=== PATIENT | male | born 1985 | race Caucasian/White ===

== ENCOUNTER 2018-12-24 09:39 | Observation (INO) ==
[2018-12-24] MEDS ORDERED: ONDANSETRON 4 MG/2 ML VIAL IV ONE (09:48)
[2018-12-24] MEDS ORDERED: 0.9 % SODIUM CHLORIDE 1,000 ML IV ONE ×5 (09:53→11:47)
[2018-12-24] MEDS ORDERED: METOCLOPRAMIDE 10 MG/2 ML VIAL IV ONE (09:56)
--- NOTE | 2018-12-24 10:03 | Emergency Department Note ---
Nausea/Vomiting/Diarrhea HPI - General Chief complaint: Weakness Stated complaint: Weakness, N/V Time Seen by Provider: 12/24/18 09:57 Source: patient, EMS Mode of arrival: EMS Limitations: no limitations - History of Present Illness HPI Narrative: 32-year-old male patient presents emergent department via ambulance with chief complaint of profuse nausea, vomiting, and hiccups. Patient is a known type I diabetic currently on an insulin pump. He admits to 2 days of inability to keep anything down including foods or fluids. He admits to dizziness with changes of position. He is somewhat of a poor historian but his mother does tell me that this has been an ongoing issue with him. He does suffer from gastroparesis associated with his diabetes and this often causes him to be nauseated and vomiting. Mother also mentions he was evaluated by a tobacco packing machine operator several days ago but she is unsure why. Patient's significant other showed up in the emergency department and filled in some details. Patient is rather "brittle" type I diabetic patient who currently uses insulin pump on. His sugars been running high at home and the 290s and so she's been having to give him boluses through his pump. He currently has a primary care provider but no bartacker as of yet. She is scheduled to see endocrinology in 2 weeks. They didn't send him to cardiology for evaluation because his blood pressures have been steadily climbing. She tells me they did an echocardiogram that showed some mitral valve regurgitation is also a aortic enlargement. Obviously, I do not have the report to review. She presents with a list his medications indicating that he is taking clonidine transdermal and conjunction with lisinopril daily. He is also on gabapentin for neuropathy. He has a history of chronic skin ulcers but this is resolved. When questioned directly, he denies any systemic fever, sweats, chills, cough, congestion, headache, shortness of breath, chest pain, palpitations, diarrhea, or focal weakness. - Related Data Home Medications Medication Instructions Recorded Confirmed insulin syringe U-100 with needle See Dose Instructions .ROUTE 03/27/15 05/24/17 1/2 mL 31 gauge x 15/64" .MEDSUPPLY Previous Rx's Medication Instructions Recorded glucagon (human recombinant) 1 mg 1 mg IM ONCE PRN #7 each 10/02/15 injection kit erythromycin 250 mg tablet 250 mg PO TID #90 tab 01/01/16 Diabetic Shoes #2 each 01/07/16 blood sugar diagnostic strips See Dose Instructions .ROUTE 06/04/16 .MEDSUPPLY #100 each MDD 4 blood-glucose meter See Dose Instructions .ROUTE 06/08/16 .MEDSUPPLY #1 each lisinopril 2.5 mg tablet 2.5 mg PO QDAY 90 Days #90 tab 12/27/16 metoclopramide 5 mg tablet 5 mg PO QID #30 tab 01/25/17 insulin lispro (U- 100) 100 See Rx Instructions SUB-Q QDAY #10 04/20/17 unit/mL subcutaneous solution ml sumatriptan 50 mg tablet 50 mg PO ONCE #30 tab 04/20/17 lorazepam 0.5 mg tablet 0.5 mg PO ONCE PRN #10 tab 05/24/17 gabapentin 300 mg capsule 300 mg PO BID #180 cap 06/13/17 ondansetron 4 mg disintegrating 4 mg PO Q6H #20 tab 08/12/17 tablet Allergies Allergy/AdvReac Type Severity Reaction Status Date / Time prochlorperazine Allergy Unknown Other Verified 12/24/18 09:48 [From Compazine] Review of Systems All systems ED: reviewed and negative except as stated. Past Medical History - Past Medical History Medical history: Reports: other (type 1 diabetes,) - Social History smoking status: Former smoker Physical Exam Limitations: no limitations General appearance: lethargic, sleepy, other (patient is lying supine on the ER gurney with his eyes closed. She does follow my commands, answering questions appropriately, he is not slurring his speech,.) Head: atraumatic, normocephalic Eye: Present: normal appearance, PERRL, EOMI. Absent: scleral icterus, conjunctival injection ENT: normal oropharynx, mucous membranes moist Neck: Present: trachea midline. Absent: lymphadenopathy, thyromegaly Respiratory: Present: normal lung sounds bilaterally. Absent: respiratory distress, wheezes, stridor, accessory muscle use, prolonged expiratory phase Cardiovascular: Present: regular rate, normal rhythm. Absent: systolic murmur, diastolic murmur Abdominal: Present: soft, diminished bowel sounds, other (insulin pump needle to the left lower quadrant). Absent: distention, tenderness, guarding, rebound, organomegaly Abdominal tenderness: Present: diffuse (mild tenderness throughout exam.) Extremities: Present: normal inspection, full ROM. Absent: pedal edema, pretibial edema, calf tenderness Neurological: Present: alert, oriented X3, CN II-XII intact, reflexes normal. Absent: motor sensory deficit Psychiatric: Present: depressed, other Skin: Present: warm, dry, normal color. Absent: diaphoretic, cyanosis, pallor Course Course Narrative: Patient was brought in temperature department history and physical exam was performed. IV was established and laboratory studies were drawn. Bedside fingerstick glucose was 225. Normal saline at 1000 ml bolus was provided. The patient actively hiccuping and dry heaving during exam. EKG was performed showing sinus tachycardia without ectopy or ST segment changes. He did have a prolonged QT interval. With this in mind, we avoided giving him Zofran or Phenergan as anti-emetics. Instead we gave him 10 mg of Reglan slow IV push. Lab called down the patient's potassium showed hypokalemia at 2.6. Patient was provided with 20 mEq potassium is IV infusion with normal saline. A review of his initial blood work showed a elevated white blood cell count 16.9 with a left shift. Lactic acid was elevated 2.9. POC chemistry panel showing sodium 127, potassium 2.6, chloride 67, total CO2 greater than 15, BUN 31 and creatinine is 3.0. A blood gas that showed pH 7.54, PCO2 61, PO2 142, bicarbonate 52.2. Repeat fingerstick glucose 197. Due the patient's elevated white blood cell count and lactic acid additional blood cultures, portable chest x-ray, and urinalysis were obtained. Patient was given 1 g of Rocephin with 3.375 g of Zosyn IV. Review of the portal chest x-ray did not show any acute pulmonary infiltrates. Due to the patient's medical complexity, and developing acidosis, undetermined infection I spoke to the hospitalist about admitting the patient. At this time the hospitalist has agreed to admit the patient to this facility for ongoing care. All other treatment modalities be carried out by the hospitalist. Vital Signs Temperature 97.3 F 12/24/18 09:41 Pulse Rate 110 H 12/24/18 09:41 Respiratory Rate 24 H 12/24/18 09:41 Blood Pressure 121/85 12/24/18 09:41 Pulse Oximetry (%) 100 12/24/18 09:41 Temperature 97.3 F 12/24/18 09:41 Pulse Rate 87 12/24/18 11:30 Respiratory Rate 17 12/24/18 11:30 Blood Pressure 124/83 12/24/18 11:30 Pulse Oximetry (%) 100 12/24/18 11:30 Nausea/Vomiting/Diarrhea - Lab Data Lab results reviewed: Yes I reviewed the patient's lab results. Result diagrams: 12/24/18 10:01 12/24/18 10:01 Lab Results 12/24/18 12/24/18 12/24/18 Range/Units 10:01 10: 10:01 WBC 16.9 H (4.5-11.0) K/mcL RBC 4.91 (4.50-5.90) M/mcL Hgb 14.9 (13.5-16.5) g/dL Hct 44.6 (41.0-55.0) % POC Hct 46.0 (41.0-55.0) % MCV 90.8 (80.0-100.0) fL MCH 30.3 (26.0-34.0) pg MCHC 33.3 (31.0-36.0) g/dL RDW 12.8 (11.5-14.5) % Plt Count 371 (140-440) K/mcL MPV 10.5 H (7.4-10.4) fL Gran % 82.7 H (38.0-78.0) % Lymph % (Auto) 10.9 L (15.5-49.0) % White % (Auto) 6.0 (1.0-12.0) % Eos % (Auto) 0.1 (0.0-7.0) % Baso % (Auto) 0.3 (0.0-2.0) % Gran # 14.0 H (1.8-8.0) K/mcL Lymph # (Auto) 1.8 (1.5-4.8) K/mcL White # (Auto) 1.0 H (0.1-0.9) K/mcL Eos # (Auto) 0 (0.0-0.7) K/mcL Baso # (Auto) 0 (0.0-0.3) K/mcL VBG Lactic Acid (0.5-2.0) mmol/L POC Sodium 127 L (133-145) mmol/L Sodium 132 L (133-145) mmol/L POC Potassium 2.6 L* (3.3-5.1) mmol/L Potassium 2.8 L* (3.3-5.1) mmol/L POC Chloride 67 L (96-108) mmol/L Chloride 68 L (96-108) mmol/L Carbon Dioxide 40 H (22-30) mmol/L POC Total CO2 > 50 H* (22-30) mmol/L Anion Gap 24.0 H (8-16) POC BUN 31 H (6-20) mg/dl BUN 32 H (6-20) mg/dl Creatinine 2.8 H (0.7-1.2) mg/dl POC Creatinine 3.0 H (0.7-1.2) mg/dl GFR Calculation 29 Glucose 232 H (70-105) mg/dL POC Glucose 236 H (70-105) mg/dL Calcium 9.5 (8.6-10.4) mg/dl POC WB Ioniz Calcium 0.87 L (1.16-1.32) mmol/L Total Bilirubin 0.4 (0.0-1.0) mg/dL AST 29 (0-37) U/l ALT 23 (0-40) U/l Alkaline Phosphatase 156 H (39-117) U/L Total Protein 8.2 (5.9-8.4) gm/dL Albumin 4.3 (3.2-5.2) gm/dL Globulin 3.9 H (2.2-3.7) gm/dL Albumin/Globulin Ratio 1.1 (1.0-2.3) Beta-Hydroxybutyrate 3.73 H (< 0.27) mmol/L 12/24/18 Range/Units 10:06 WBC (4.5-11.0) K/mcL RBC (4.50-5.90) M/mcL Hgb (13.5-16.5) g/dL Hct (41.0-55.0) % POC Hct (41.0-55.0) % MCV (80.0-100.0) fL MCH (26.0-34.0) pg MCHC (31.0-36.0) g/dL RDW (11.5-14.5) % Plt Count (140-440) K/mcL MPV (7.4-10.4) fL Gran % (38.0-78.0) % Lymph % (Auto) (15.5-49.0) % White % (Auto) (1.0-12.0) % Eos % (Auto) (0.0-7.0) % Baso % (Auto) (0.0-2.0) % Gran # (1.8-8.0) K/mcL Lymph # (Auto) (1.5-4.8) K/mcL White # (Auto) (0.1-0.9) K/mcL Eos # (Auto) (0.0-0.7) K/mcL Baso # (Auto) (0.0-0.3) K/mcL VBG Lactic Acid 2.9 H (0.5-2.0) mmol/L POC Sodium (133-145) mmol/L Sodium (133-145) mmol/L POC Potassium (3.3-5.1) mmol/L Potassium (3.3-5.1) mmol/L POC Chloride (96-108) mmol/L Chloride (96-108) mmol/L Carbon Dioxide (22-30) mmol/L POC Total CO2 (22-30) mmol/L Anion Gap (8-16) POC BUN (6-20) mg/dl BUN (6-20) mg/dl Creatinine (0.7-1.2) mg/dl POC Creatinine (0.7-1.2) mg/dl GFR Calculation Glucose (70-105) mg/dL POC Glucose (70-105) mg/dL Calcium (8.6-10.4) mg/dl POC WB Ioniz Calcium (1.16-1.32) mmol/L Total Bilirubin (0.0-1.0) mg/dL AST (0-37) U/l ALT (0-40) U/l Alkaline Phosphatase (39-117) U/L Total Protein (5.9-8.4) gm/dL Albumin (3.2-5.2) gm/dL Globulin (2.2-3.7) gm/dL Albumin/Globulin Ratio (1.0-2.3) Beta-Hydroxybutyrate (< 0.27) mmol/L - Radiology Data Radiology results reviewed: Yes I reviewed the patient's radiology results. A portable chest x-ray showing no acute pulmonary infiltrates. - EKG Data EKG results narrative: Twelve-lead EKG obtained showing a sinus tachycardia rate 100 bpm. No ectopy. No ST segment changes. QTc 528. 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 All other treatment modalities will be ordered and carried out through the hospitalist. Referrals: Alexia Crouch ARNP [Primary Care Provider] - Time of Disposition: 11:55
[2018-12-24] MEDS ORDERED: POTASSIUM CHLORIDE 20 MEQ in DEXTROSE 5% IN WATER 250 ML IV ONE (10:13)
[2018-12-24 10:16] LABS: POC Blood Urea Nitrogen 31 mg/dl (6-20); POC CO2 > 50 mmol/L (22-30); POC Calcium, Ionized 0.87 mmol/L (1.16-1.32); POC Chloride 67 mmol/L (96-108); POC Glucose, Random 236 mg/dL (70-105); POC Potassium 2.6 mmol/L (3.3-5.1); POC Sodium 127 mmol/L (133-145)
[2018-12-24 10:48] LABS: Basophils # (Auto) 0 K/mcL (0.0-0.3); Basophils % (Auto) 0.3 % (0.0-2.0); Eosinophils # (Auto) 0 K/mcL (0.0-0.7); Eosinophils % (Auto) 0.1 % (0.0-7.0); Granulocytes % (Auto) 82.7 % (38.0-78.0); Hematocrit 44.6 % (41.0-55.0); Hemoglobin 14.9 g/dL (13.5-16.5); Lymphocytes # (Auto) 1.8 K/mcL (1.5-4.8); Lymphocytes % (Auto) 10.9 % (15.5-49.0); Mean Cell Volume 90.8 fL (80.0-100.0); Mean Corpuscular HGB Conc 33.3 g/dL (31.0-36.0); Mean Platelet Volume 10.5 fL (7.4-10.4); Platelet Count 371 K/mcL (140-440); RBC 4.91 M/mcL (4.50-5.90); Red Cell Distribution Width 12.8 % (11.5-14.5); WBC 16.9 K/mcL (4.5-11.0)
[2018-12-24] MEDS ORDERED: PIPERACILLIN SODIUM/TAZOBACTAM 3.375 GM in DEXTROSE 5% IN WATER 50 ML IV ONE (11:10)
[2018-12-24] MEDS ORDERED: cefTRIAXone 1 GM VIAL IV ONE (11:11)
[2018-12-24 11:25] LABS: ALT/SGPT 23 U/l (0-40); AST/SGOT 29 U/l (0-37); Albumin 4.3 gm/dL (3.2-5.2); Albumin/Globulin Ratio 1.1 (1.0-2.3); Alkaline Phosphatase 156 U/L (39-117); Bilirubin,Total 0.4 mg/dL (0.0-1.0); Blood Urea Nitrogen 32 mg/dl (6-20); Calcium 9.5 mg/dl (8.6-10.4); Carbon Dioxide 40 mmol/L (22-30); Chloride 68 mmol/L (96-108); Globulin 3.9 gm/dL (2.2-3.7); Glomerular Filtration Rate 29; Glucose 232 mg/dL (70-105); Potassium 2.8 mmol/L (3.3-5.1); Sodium 132 mmol/L (133-145)
[2018-12-24] MEDS ORDERED: INSULIN REGULAR, HUMAN 50 UNIT in 0.9 % SODIUM CHLORIDE 99.5 ML IV SCH (12:22)
[2018-12-24] MEDS ORDERED: METOCLOPRAMIDE 10 MG/2 ML VIAL IV SCH (12:22)
[2018-12-24] MEDS ORDERED: VANCOMYCIN PER PHARMACY IV SCH (12:22)
[2018-12-24] MEDS ORDERED: HYDROmorphone 2 MG/ML VIAL IV PRN (12:22)
[2018-12-24] MEDS ORDERED: PROMETHAZINE 25 MG/ML VIAL IV PRN (12:22)
[2018-12-24] MEDS ORDERED: NALOXONE HCL 0.4 MG/ML VIAL IV PRN (12:22)
[2018-12-24] MEDS ORDERED: ONDANSETRON 4 MG/2 ML VIAL IV PRN (12:22)
[2018-12-24 12:58] LABS: Estimated Average Glucose(eAG) 214 mg/dL; Hemoglobin A1C 9.1 % HGB (4.0-6.0)
[2018-12-24] MEDS ORDERED: POTASSIUM CHLORIDE IV ONE (13:00)
[2018-12-24] MEDS ORDERED: VANCOMYCIN 1,000 MG in 0.9 % SODIUM CHLORIDE 250 ML IV SCH (13:00)
[2018-12-24] MEDS ORDERED: POTASSIUM CHLORIDE 80 MEQ in DEXTROSE 5% IN WATER 1,000 ML IV ONE (13:00)
[2018-12-24] MEDS ORDERED: SODIUM CHLORIDE 0.9% IV ONE (13:00)
[2018-12-24 13:09] LABS: ALT/SGPT 23 U/l (0-40); AST/SGOT 29 U/l (0-37); Albumin 4.2 gm/dL (3.2-5.2); Albumin/Globulin Ratio 1.1 (1.0-2.3); Alkaline Phosphatase 160 U/L (39-117); Bilirubin,Direct < 0.2 mg/dL (0.0-0.3); Bilirubin,Total 0.3 mg/dL (0.0-1.0); Blood Urea Nitrogen 33 mg/dl (6-20); Calcium 9.6 mg/dl (8.6-10.4); Carbon Dioxide 37 mmol/L (22-30); Chloride 67 mmol/L (96-108); Globulin 3.9 gm/dL (2.2-3.7); Glomerular Filtration Rate 28; Glucose 234 mg/dL (70-105); Lactate Dehydrogenase 214 U/L (94-250); Magnesium 3.6 mg/dL (1.6-2.5); Phosphorous 4.1 mg/dL (2.7-4.5); Potassium 2.8 mmol/L (3.3-5.1); Sodium 131 mmol/L (133-145); Triglycerides 201 mg/dl (<150); Uric Acid 9.4 mg/dL (2.5-8.0)
[2018-12-24 13:16] LABS: ABG Methemoglobin 0.3 % (0.4-1.5); Total Hemoglobin 11.2 gm/dL (13.5-16.5); VBG Base Excess 12.5 (-2.0-2.0); VBG HCO3 35.8 mmol/L (24.0-28.0); VBG Oxygen Saturation 70.6 % (40.0-70.0); VBG PCO2 40.9 mmHg (41.0-51.0); VBG PH 7.56 U (7.32-7.42); VBG PO2 40 mmHg (25-40); VBG Total CO2 37.1 mmol/L (25.0-29.0)
[2018-12-24 13:40] LABS: ALT/SGPT 16 U/l (0-40); AST/SGOT 20 U/l (0-37); Albumin 3.1 gm/dL (3.2-5.2); Albumin/Globulin Ratio 1.1 (1.0-2.3); Alkaline Phosphatase 108 U/L (39-117); Bilirubin,Direct < 0.2 mg/dL (0.0-0.3); Bilirubin,Total 0.3 mg/dL (0.0-1.0); Blood Urea Nitrogen 27 mg/dl (6-20); Calcium 7.2 mg/dl (8.6-10.4); Carbon Dioxide 33 mmol/L (22-30); Chloride 85 mmol/L (96-108); Globulin 2.7 gm/dL (2.2-3.7); Glomerular Filtration Rate 35; Glucose 200 mg/dL (70-105); Lactate Dehydrogenase 150 U/L (94-250); Magnesium 2.7 mg/dL (1.6-2.5); Phosphorous 1.3 mg/dL (2.7-4.5); Sodium 132 mmol/L (133-145); Triglycerides 145 mg/dl (<150); Uric Acid 6.8 mg/dL (2.5-8.0)
--- NOTE | 2018-12-24 14:11 | XRay Report ---
CLINICAL INFORMATION: Unknown infection COMPARISON: None. FINDINGS: The heart size, mediastinum and pulmonary vessels are unremarkable. The lungs are clear. There are no effusions. The bones and soft tissues are within normal limits. IMPRESSION: Normal chest. Interpreted and Authenticated by: Demetrius Smart 12/24/18
[2018-12-24] MEDS: 0.9 % SODIUM CHLORIDE 1,000 ML IV SCH ×3 (14:17→21:55)
[2018-12-24] MEDS: 0.9 % SODIUM CHLORIDE 10 ML SYRINGE IV SCH ×2 (14:18→21:23)
[2018-12-24] MEDS ORDERED: INSULIN NPH, HUMAN 1 UNIT/0.01 ML UNIT SQ ONE (14:30)
[2018-12-24] MEDS ORDERED: POTASSIUM PHOSPHATE 40 MEQ in 0.9 % SODIUM CHLORIDE 500 ML IV ONE (14:30)
--- NOTE | 2018-12-24 14:31 | Cat Scan Report ---
CLINICAL INFORMATION: Diabetes with nausea vomiting abdominal pain. Elevated BUN/creatinine COMPARISON: None. TECHNIQUE: 0.625 mm helical slices were obtained from the mid heart through the subtrochanteric regions. Following reconstruction, 2.5 mm sagittal, coronal and axial reformatted images were processed and reviewed at bone and soft tissue windows.The exam was performed using radiation dose optimization techniques including, but not limited to, automated exposure control, adjustment of the mA and/or kV according to patient size and use of iterative reconstruction technique. FINDINGS: Lung bases show no abnormality - no effusions. The visualized heart is normal. Images through the abdomen show the noncontrasted liver is normal. There are two stones in the gallbladder - both less than than 6 mm. The gallbladder is, otherwise, normal: no wall thickening to support associated cholecystitis. Intrahepatic common bile ducts are normal caliber - CBD is 5 mm. The noncontrasted kidneys, adrenal glands, spleen, pancreas, aorta are normal in size, configuration and attenuation without focal lesion. There is no free air, free fluid or adenopathy. The stomach, small /large bowel and appendix are normal. Images through the pelvis show urinary, bladder prostate and seminal vesicles are normal. Bone windows show no osseous abnormality IMPRESSION: Cholelithiasis Interpreted and Authenticated by: Demetrius Smart 12/24/18
[2018-12-24] MEDS ORDERED: PANTOPRAZOLE 40 MG VIAL IV ONE (14:37)
[2018-12-24] MEDS: LORazepam 2 MG/ML VIAL IV PRN ×2 (14:53→20:54)
--- NOTE | 2018-12-24 15:04 | Internal Med History&Physical ---
Medical - H&P: HPI Patient information: Note initiated : 12/24/18 at 3:01 pm Service Date, if different from initiated Date: [] Patient: Mauri Levine 32 y/o M admitted on 12/24/18 for Weakness, N/V. Chief Complaint: [] History of present illness: Mr. Levine is a 32 year old M history of insulin-dependent diabetes and gastroparesis presents to the emergency room for nausea and vomiting that has been bothering him for the last 2 days. Significant nausea vomiting unable to keep down any food for the last 2 days. He says he may have tried to take some medicine and fluids. he still making some urine. He was brought to the emergency room by EMS because of significant weakness. The patient denies any headache does have chronic headaches from migraine versus blood pressure, no changes in vision no difficulty in swallowing denies any abdominal pain no cough no shortness of breath no chest pain he does not have any diarrhea or constipation no skin rashes joint pains, does have history of anxiety and depression. On presenting to the emergency room patient was hemodynamically stable, with stable vital signs. His labs showed WBC count of 16.9, hemoglobin 14.9 platelets 371, lactic acid 2.9 sodium 132 potassium 2.8 bicarbonate 40 BUN 32 creatinine 2.8 glucose 232, anion gap 24 beta hydroxybutyrate 3.73 procalcitonin less than 0.10, magnesium was 3.4 and phosphorus 1.3. ABG was done which shows a pH of 7.54, PCO2 61, PO2 142 on 2 L of oxygen Patient was aggressively hydrated, I believe he received 3 L of saline in the emergency room, patient was presented to the hospital for further management. Patient was admitted to the ICU. Repeat labs were done after the patient reached the ICU, which showed improvement in the patient's lactic acid, is 1.9 now, anion gap at 14, beta hydroxybutyrate improved to 1.8. Patient had not received any insulin only fluids, repeat venous blood gas shows pH of 7.56, PCO2 40. All systems: reviewed and no additional remarkable complaints except as stated (as per HPI rest negative) Medical - H&P: PMH Medical history: DM with retinopathy DM Peripheral neuropathy autonomic neuropathy Diabetic gastroparesis THC use daily HTN Depression/anxiety Family history: reviewed and not pertinent Social history: THC use daily ex tobacco user no etoh reported Medical - H&P: Meds Home Medications Medication Instructions Recorded Confirmed Type insulin syringe U-100 with needle See Dose Instructions .ROUTE 03/27/15 05/24/17 History 1/2 mL 31 gauge x 15/" .MEDSUPPLY glucagon (human recombinant) 1 mg 1 mg IM ONCE PRN #7 each 10/02/15 05/24/17 Rx injection kit erythromycin 250 mg tablet 250 mg PO TID #90 tab 01/01/16 05/24/17 Rx Diabetic Shoes #2 each 01/07/16 05/24/17 Rx blood sugar diagnostic strips See Dose Instructions .ROUTE 06/04/16 05/24/17 Rx .MEDSUPPLY #100 each MDD 4 blood-glucose meter See Dose Instructions .ROUTE 06/08/16 05/24/17 Rx .MEDSUPPLY #1 each lisinopril 2.5 mg tablet 2.5 mg PO QDAY 90 Days #90 tab 12/27/16 05/24/17 Rx metoclopramide 5 mg tablet 5 mg PO QID #30 tab 01/25/17 05/24/17 Rx insulin lispro (U- 100) 100 See Rx Instructions SUB-Q QDAY #10 04/20/17 05/24/17 Rx unit/mL subcutaneous solution ml sumatriptan 50 mg tablet 50 mg PO ONCE #30 tab 04/20/17 05/24/17 Rx lorazepam 0.5 mg tablet 0.5 mg PO ONCE PRN #10 tab 05/24/17 05/24/17 Rx gabapentin 300 mg capsule 300 mg PO BID #180 cap 06/13/17 Rx ondansetron 4 mg disintegrating 4 mg PO Q6H #20 tab 08/12/17 Rx tablet Allergies Allergy/AdvReac Type Severity Reaction Status Date / Time prochlorperazine AdvReac Mild "My whole Verified 12/24/18 12:25 [From Compazine] body freaks out." Medical - H&P: Exam - Constitutional Vitals: Temp Pulse Resp BP Pulse Ox 99.5 F H 78 8 L 123/74 100 12/24/18 13:01 12/24/18 13:07 12/24/18 13:07 12/24/18 13:01 12/24/18 13:07 Exam: GENERAL: The patient is a well-developed, well-nourished in no apparent distress. Is alert and oriented x3. VITAL SIGNS: Reviewed and as noted elsewhere. HEENT: Head is normocephalic and atraumatic. Extraocular muscles are intact. Pupils are equal, round, and reactive to light. Nares appeared normal. Mouth appears any without lesions. Mucous membranes are dry. NECK: Normal to inspection, Supple, No lymphadenopathy or thyromegaly. LUNGS: Air entry equal on both sides, no wheezing, crackles or rhonchi noted. No accessory muscles of respiration HEART: Regular rate and rhythm normal, S1 and S2 heard, no Gallop, S3 or Rub Noted, No Gross murmur heard. Point of care IVC shows near full collapse with inspiration, after 3 L of saline bolus. ABDOMEN: Soft, nontender, and nondistended. Positive bowel sounds. No hepatosplenomegaly was noted. EXTREMITIES: No cyanosis, clubbing, rash, lesions or edema. NEUROLOGIC: Cranial nerves II through XII are grossly intact. Motor and Sensory System Grossly Intact PSYCHIATRIC: Normal affect, Normal Mood. Appropriate Behavior. SKIN: No ulceration or wounds noted, No jaundice, No rash noted. Medical - H&P: Reslt - Labs CBC & Chem 7: 12/24/18 10:12/24/18 12:57 Labs: Short CBC 12/24/18 Range/Units 10:01 WBC 16.9 H (4.5-11.0) K/mcL Hgb 14.9 (13.5-16.5) g/dL Hct 44.6 (41.0-55.0) % Plt Count 371 (140-440) K/mcL [facility] 12/24/18 12/24/18 12/24/18 10:01 10:01 12:57 Sodium 132 L 131 L 132 L Potassium 2.8 L* 2.8 L* 3.0 L Chloride 68 L 67 L 85 L Carbon Dioxide 40 H 37 H 33 H BUN 32 H 33 H 27 H Creatinine 2.8 H 2.9 H 2.4 H Glucose 232 H 234 H 200 H Calcium 9.5 9.6 7.2 L Liver Function 12/24/18 12/24/18 12/24/18 Range/Units 10:01 10:01 12:57 Total Bilirubin 0.4 0.3 0.3 (0.0-1.0) mg/dL Direct Bilirubin < 0.2 < 0.2 (0.0-0.3) mg/dL GGT 23 15 (8-61) U/L AST 29 29 20 (0-37) U/l ALT 23 23 16 (0-40) U/l Alkaline Phosphatase 156 H 160 H 108 (39-117) U/L Albumin 4.3 4.2 3.1 L (3.2-5.2) gm/dL - ABG Interpretation ABG results: 12/24/18 12:57 ABG Methemoglobin 0.3 L VBG pH 7.56 H VBG pCO2 40.9 L VBG pO2 40 VBG HCO3 35.8 H VBG Total CO2 37.1 H VBG O2 Saturation 70.6 H VBG Base Excess 12.5 H Medical - H&P: A/P - Narrative A/P Narrative: A/P Diabetic Gastroparesis/ Nausea and vomiting/ Severe dehydration -zofran and Phenergan for now, -reglan was planned but it causes EPS reaction as per pt's heidy who is a nurse 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 -Aggressive fluid replacement DKA -Mild, rapidly improving, with just fluids, -starvation ketosis also contributing to elevated betahydroxybutyrate -frequent lab monitoring and q2h fs for now -give NPH 8 units sq now. Initial plan was to start on insulin ggt, but given rapid improvement with just fluids, will watch closely. Leucocytosis -likely related to stress, no obvious e/o infection did get rocephin, zosyn in ER, hold off on ABX, -procalcitonin is neg. Lactic acidosis -due to severe dehydration and hypoperfusion. -resolved with fluids Hypokalemia, critical -aggressive IV replacement Severe hypophosphatemia -Replace IV HTN -on a clonidine patch, to resume once verifed. Anxiety/Depression -ativan prn for anxiety, as per Heidy gets panic attacks in hospitals -resume home dose once verified for anti depressant DVT hep sq Full code NPO diet for now. Medical - H&P: Qual - VTE Deep Vein Thrombosis/Pulmonary Embolism Present on Admission: No
[2018-12-24 15:08] LABS: Alcohol, Urine NONE DETECTED (NONDETECTED); Amphetamine Screen,Urine NONE DETECTED (NONDETECTED); Barbiturate Screen,Urine NONE DETECTED (NONDETECTED); Benzodiazepines Screen,Urine NONE DETECTED (NONDETECTED); Cannabinoid Screen,Urine SUSPECT POSITIVE (NONDETECTED); Cocaine Screen,Urine NONE DETECTED (NONDETECTED); Opiate Screen,Urine NONE DETECTED (NONDETECTED); Oxycodone, Urine Screen NONE DETECTED (NONDETECTED); Phencyclidine Screen,Urine NONE DETECTED (NONDETECTED)
--- NOTE | 2018-12-24 16:16 | Emergency Department Note ---
ED Note Addendum Note Addendum: I discussed this case with the mid-level provider and agree with the assessment and plan.
[2018-12-24] MEDS ORDERED: DEXTROSE 50% 50 ML VIAL IV PRN (17:00)
[2018-12-24] MEDS: INSULIN LISPRO 1 UNIT/0.01 ML UNIT SQ SCH (17:40)
[2018-12-24] MEDS ORDERED: PIPERACILLIN SODIUM/TAZOBACTAM 3.375 GM in DEXTROSE 5% IN WATER 50 ML IV SCH (18:00)
[2018-12-24 19:49] LABS: Blood Urea Nitrogen 23 mg/dl (6-20); Calcium 7.2 mg/dl (8.6-10.4); Carbon Dioxide 30 mmol/L (22-30); Chloride 91 mmol/L (96-108); Glomerular Filtration Rate 41; Glucose 146 mg/dL (70-105); Phosphorous 4.4 mg/dL (2.7-4.5); Sodium 131 mmol/L (133-145)
[2018-12-24] MEDS ORDERED: INSULIN GLARGINE, HUMAN 1 UNIT/0.01 ML SQ SCH (21:00)
[2018-12-24] MEDS: HEPARIN 5,000 UNIT/ML VIAL SQ SCH (21:21)
[2018-12-24] MEDS: ACETAMINOPHEN 325 MG TABLET PO PRN (21:22)
[2018-12-24 22:40] LABS: ABG Methemoglobin 0 % (0.4-1.5); Total Hemoglobin 10.5 gm/dL (13.5-16.5); VBG Base Excess 7.1 (-2.0-2.0); VBG HCO3 32.3 mmol/L (24.0-28.0); VBG Oxygen Saturation 85.1 % (40.0-70.0); VBG PCO2 48.8 mmHg (41.0-51.0); VBG PH 7.44 U (7.32-7.42); VBG PO2 57 mmHg (25-40); VBG Total CO2 33.8 mmol/L (25.0-29.0)
[2018-12-25] MEDS: INSULIN LISPRO 1 UNIT/0.01 ML UNIT SQ SCH ×3 (00:07→07:58)
[2018-12-25] MEDS: 0.9 % SODIUM CHLORIDE 1,000 ML IV SCH (00:10)
[2018-12-25] MEDS: ACETAMINOPHEN 325 MG TABLET PO PRN (02:29)
[2018-12-25] MEDS: LORazepam 2 MG/ML VIAL IV PRN (02:52)
[2018-12-25 04:47] LABS: Basophils # (Auto) 0 K/mcL (0.0-0.3); Basophils % (Auto) 0.3 % (0.0-2.0); Eosinophils # (Auto) 0 K/mcL (0.0-0.7); Eosinophils % (Auto) 0.4 % (0.0-7.0); Granulocytes % (Auto) 68.6 % (38.0-78.0); Hematocrit 29.4 % (41.0-55.0); Hemoglobin 9.6 g/dL (13.5-16.5); Lymphocytes # (Auto) 2.1 K/mcL (1.5-4.8); Lymphocytes % (Auto) 21.8 % (15.5-49.0); Mean Cell Volume 92.1 fL (80.0-100.0); Mean Corpuscular HGB Conc 32.7 g/dL (31.0-36.0); Monocytes # (Auto) 0.9 K/mcL (0.1-0.9); Monocytes % (Auto) 8.9 % (1.0-12.0); Platelet Count 211 K/mcL (140-440); Red Cell Distribution Width 12.8 % (11.5-14.5); WBC 9.8 K/mcL (4.5-11.0)
[2018-12-25 05:04] LABS: ALT/SGPT 13 U/l (0-40); AST/SGOT 16 U/l (0-37); Albumin 2.6 gm/dL (3.2-5.2); Albumin/Globulin Ratio 1.1 (1.0-2.3); Alkaline Phosphatase 87 U/L (39-117); Bilirubin,Direct < 0.2 mg/dL (0.0-0.3); Bilirubin,Total < 0.2 mg/dL (0.0-1.0); Blood Urea Nitrogen 18 mg/dl (6-20); Calcium 7.3 mg/dl (8.6-10.4); Carbon Dioxide 28 mmol/L (22-30); Chloride 97 mmol/L (96-108); Globulin 2.4 gm/dL (2.2-3.7); Glomerular Filtration Rate 49; Glucose 178 mg/dL (70-105); Lactate Dehydrogenase 148 U/L (94-250); Magnesium 2.5 mg/dL (1.6-2.5); Phosphorous 3.4 mg/dL (2.7-4.5); Potassium 4.1 mmol/L (3.3-5.1); Sodium 133 mmol/L (133-145); Triglycerides 153 mg/dl (<150); Uric Acid 5.1 mg/dL (2.5-8.0)
[2018-12-25] MEDS: 0.9 % SODIUM CHLORIDE 10 ML SYRINGE IV SCH (05:31)
[2018-12-25] MEDS ORDERED: PANTOPRAZOLE 40 MG VIAL IV SCH (07:30)
[2018-12-25] MEDS: HEPARIN 5,000 UNIT/ML VIAL SQ SCH (07:50)
[2018-12-25] MEDS ORDERED: ONDANSETRON 4 MG/2 ML VIAL IV PRN (08:06)
[2018-12-25] MEDS ORDERED: NALOXONE HCL 0.4 MG/ML VIAL IV PRN (08:06)
[2018-12-25] MEDS ORDERED: HYDROmorphone 2 MG/ML VIAL IV PRN (08:06)
[2018-12-25] MEDS ORDERED: DEXTROSE 50% 50 ML VIAL IV PRN (08:06)
[2018-12-25] MEDS ORDERED: 0.9 % SODIUM CHLORIDE 1,000 ML IV SCH (08:06)
[2018-12-25] MEDS ORDERED: LORazepam 2 MG/ML VIAL IV PRN (08:06)
[2018-12-25] MEDS ORDERED: PROMETHAZINE 25 MG/ML VIAL IV PRN (08:06)
[2018-12-25] MEDS ORDERED: POTASSIUM CHLORIDE 80 MEQ in DEXTROSE 5% IN WATER 1,000 ML IV ONE (08:06)
[2018-12-25] MEDS ORDERED: ACETAMINOPHEN 325 MG TABLET PO PRN (08:06)
[2018-12-25] MEDS ORDERED: HEPARIN 5,000 UNIT/ML VIAL SQ SCH (09:00)
[2018-12-25 09:08] LABS: Appearance,Urine CLEAR; Bacteria,Urine 0 /hpf (0); Bilirubin,Urine NEG (NEG); Color,Urine STRAW; Culture Indicated,Urine NO; Glucose,Urine (UA) >=500 mg/dL (NEG); Ketones,Urine 5/TR mg/dL (NEG); Leukocyte Esterase,Urine NEG /uL (NEG); Nitrate,Urine NEG (NEG); Protein,Urine 100 mg/dL (NEG); Specific Gravity,Urine 1.012 (1.000-1.035); Urine Blood NEG mg/dL (<0.03); Urine RBC 1 /hpf (0-1); Urine Squamous Epithelial Cell 0 /hpf (0-4); Urine WBC 1 /hpf (0-4); Urobilinogen,Urine NEG (NEG)
--- NOTE | 2018-12-25 09:20 | Discharge Summary ---
Medical - DS: Prov Patient information: Note initiated : 12/25/18 at 9:16 am Service Date, if different from initiated Date: [] Patient: Mauri Levine 32 y/o M admitted on 12/24/18 for Weakness, N/V. Chief Complaint: [] Date of admission: 12/24/18 12:20 Discharge date: 12/25/18 Primary care physician: Alexia Crouch Discharging clinician: Luana King Medical - DS: Meds - Discharge Medications Active and Home Medications: Home Medications insulin syringe U-100 with needle 1/2 mL 31 gauge x 15/64" See Dose Instructions .ROUTE .MEDSUPPLY 03/27/15 [History Confirmed 05/24/17 Last Taken Unknown] glucagon (human recombinant) 1 mg injection kit 1 mg IM ONCE PRN #7 each 10/02/15 [Rx Confirmed 05/24/17 Last Taken Unknown] erythromycin 250 mg tablet 250 mg PO TID #90 tab 01/01/16 [Rx Confirmed 12/24/18 Last Taken Unknown] Diabetic Shoes #2 each 01/07/16 [Rx Confirmed 05/24/17 Last Taken Unknown] blood sugar diagnostic strips See Dose Instructions .ROUTE .MEDSUPPLY #100 each MDD 4 06/04/16 [Rx Confirmed 05/24/17 Last Taken Unknown] blood-glucose meter See Dose Instructions .ROUTE .MEDSUPPLY #1 each 06/08/16 [Rx Confirmed 05/24/17 Last Taken Unknown] metoclopramide 5 mg tablet 5 mg PO QID #30 tab 01/25/17 [Rx Confirmed 05/24/17 Last Taken Unknown] insulin lispro (U- 100) 100 unit/mL subcutaneous solution See Rx Instructions SUB-Q QDAY #10 ml 04/20/17 [Rx Confirmed 05/24/17 Last Taken Unknown] sumatriptan 50 mg tablet 50 mg PO ONCE #30 tab 04/20/17 [Rx Confirmed 05/24/17 Last Taken Unknown] ondansetron 4 mg disintegrating tablet 4 mg PO Q6H #20 tab 08/12/17 [Rx Last Taken Unknown] RX: Gabapentin [Neurontin] 600 mg PO TID 12/24/18 [History Confirmed 12/24/18 Last Taken Unknown] RX: LORazepam [Ativan] 0.5 mg PO TID 12/24/18 [History Confirmed 12/24/18 Last Taken Unknown] RX: Lisinopril [Zestril] 10 mg PO HS 12/24/18 [History Confirmed 12/24/18 Last Taken Unknown] Medical - DS: Hosp Hospital course: Mr. Levine is a 32 year old M history of insulin-dependent diabetes and gastroparesis presents to the emergency room for nausea and vomiting that has been bothering him for the last 2 days. Significant nausea vomiting unable to keep down any food for the last 2 days. He says he may have tried to take some medicine and fluids. he still making some urine. He was brought to the emergency room by EMS because of significant weakness. The patient denies any headache does have chronic headaches from migraine versus blood pressure, no changes in vision no difficulty in swallowing denies any abdominal pain no cough no shortness of breath no chest pain he does not have any diarrhea or constipation no skin rashes joint pains, does have history of anxiety and depression. On presenting to the emergency room patient was hemodynamically stable, with stable vital signs. His labs showed WBC count of 16.9, hemoglobin 14.9 platelets 371, lactic acid 2.9 sodium 132 potassium 2.8 bicarbonate 40 BUN 32 creatinine 2.8 glucose 232, anion gap 24 beta hydroxybutyrate 3.73 procalcitonin less than 0.10, magnesium was 3.4 and phosphorus 1.3. ABG was done which shows a pH of 7.54, PCO2 61, PO2 142 on 2 L of oxygen Patient was aggressively hydrated, I believe he received 3 L of saline in the emergency room, patient was presented to the hospital for further management. Patient was admitted to the ICU. Repeat labs were done after the patient reached the ICU, which showed improvement in the patient's lactic acid, is 1.9 now, anion gap at 14, beta hydroxybutyrate improved to 1.8. Patient had not received any insulin only fluids, repeat venous blood gas shows pH of 7.56, PCO2 40. 6/10 Pt seen examined, symptoms of nausea and vomiting resolved. his labs are back and have shown significant improvement, anion gap closed, hydroxybuytrate normal, VBG shows ph of 7.44 Pt this Am is able to tolerate po diet well. His creat is improved and is 1.8 his potassium and phosphorus is normal. He is eager to be discharged and is stable for discharge. Will be discharged with continued oral hydration, and back on his insulin pump Advised to start taking omeprazole 20mg 30mins before a meal, avoid marijuana for atleast 2 weeks, get HIDA scan as outpatient for gall stones noted on CT scan Discharge diagnosis: Severe Dehydration, Diabetic gastroparesis. - Time Spent with Patient Total time spent providing and/or coordinating discharge services: Greater than 30 minutes Medical - DS: Exam - Constitutional Vitals: Vital Signs Temp Pulse Pulse Resp BP BP Pulse Ox 12/25/18 07:42 97.7 F 16 164/84 100 12/25/18 07:07 81 26 H 100 12/25/18 07:00 78 20 158/81 100 12/25/18 06:00 150/96 12/25/18 05:00 18 143/83 12/25/18 04:01 65 17 124/69 98 12/25/18 03:01 98.6 F 16 147/71 98 12/25/18 02:01 74 20 116/94 98 12/25/18 02:00 84 12/25/18 01:01 80 25 H 132/75 97 12/25/18 00:01 71 20 126/62 97 12/24/18 23:01 82 24 H 100/69 95 12/24/18 22:07 99.3 F H 12/24/18 22:01 99.1 F H 78 18 105/69 98 12/24/18 21:22 99.7 F H 12/24/18 21:01 74 17 133/73 98 12/24/18 20:10 98 12/24/18 20:01 99.7 F H 21 117/65 12/24/18 19:01 21 123/61 12/24/18 18:12 17 12/24/18 18:01 22 117/59 12/24/18 17:04 83 16 100 12/24/18 17:00 82 13 115/60 100 12/24/18 16:06 86 13 100 12/24/18 16:00 86 13 120/59 100 12/24/18 15:56 86 14 100 12/24/18 15:01 92 H 23 H 118/35 95 12/24/18 14:19 95 H 24 H 171/90 100 12/24/18 14:00 95 H 21 175/91 100 12/24/18 13:07 78 8 L 100 12/24/18 13:01 99.5 F H 82 14 123/74 88 L 12/24/18 12:45 88 24 H 125/78 100 12/24/18 12:37 97.3 F 86 21 128/78 100 12/24/18 12:31 126/78 12/24/18 12:20 99.5 F H 84 18 126/78 100 12/24/18 12:00 86 21 128/78 100 12/24/18 11:59 85 21 100 12/24/18 11:54 87 22 100 12/24/18 11:46 93 H 21 140/86 100 12/24/18 11:30 87 17 124/83 100 12/24/18 11:15 93 H 19 139/95 100 12/24/18 11:06 88 27 H 100 12/24/18 11:00 87 19 143/80 100 12/24/18 10:54 93 H 19 100 12/24/18 10:45 82 20 137/83 100 12/24/18 10:44 80 23 H 100 12/24/18 10:43 79 23 H 100 12/24/18 10:30 76 13 124/86 100 12/24/18 10:22 79 16 100 12/24/18 10:19 81 11 L 98 12/24/18 10:16 86 21 110/80 100 12/24/18 10:09 85 14 99 12/24/18 10:08 87 18 100 12/24/18 10:06 90 14 97/69 100 12/24/18 09:41 97.3 F 110 H 24 H 121/85 100 Intake and Output 12/24/18 12/25/18 12/25/18 21:59 05:59 13:59 Intake Total 6149.0909 1980 960 Output Total 1075 1250 400 Balance 5074.0909 730 560 Intake: IV 5109.0909 1000 Sodium Chloride 0.9% 1,000 ml @ 1000 150 mls/hr IV .[id number] [facility] Rx#: [id number] Potassium Chloride 80 Meq In 1040 Sodium Chloride 0.9% 1,000 ml @ 130 mls/hr IV ONCE ONE Rx#: [id number] Vancomycin 1,000 mg In Sodium 250 Chloride 0.9% 250 ml @ 250 mls/ hr IV Q12H [facility] Rx#:[id number] Oral 1040 980 960 Output: Void Amount 1075 700 400 Urine/Stool Mix 550 Other: Meal Daniel Crackers and peanut butter Percent of Meal Consumed 50% Feeding Ability Assist with Tray Set Up Urine Appearance Clear Cloudy Urine Color Bright Yellow Light Doreen Urine Odor Normal Stool Size Small Stool Color Brown Yellow Stool Consistency Liquid Weight 158 lb 11.2 oz Additional comments: Constitutional; Afebrile, cooperative, alert, not in distress. Respiratory system: Air Entry equal on both sides, No crackles or wheezing, no rhonchi. CVS- Rate rhythm regular, S1,S2 heard, no gallop, no rub. Abdomen- Soft nontender abdomen, no organomegaly, no tenderness, no guarding or rigidity, [employer]- AOOx3, moving all extremities, no gross focal deficit noted. Medical - DS: Data Labs on day of discharge: Labs from last 24 hours 12/25/18 12/25/18 12/25/18 08:01 07:47 03:40 WBC RBC Hgb Hct POC Hct MCV MCH MCHC RDW Plt Count MPV Gran % Lymph % (Auto) [place] % (Auto) Eos % (Auto) Baso % (Auto) Gran # Lymph # (Auto) [place] # (Auto) Eos # (Auto) Baso # (Auto) ABG Methemoglobin VBG pH VBG pCO2 VBG pO2 VBG HCO3 VBG Total CO2 VBG O2 Saturation VBG Base Excess VBG Lactic Acid Carboxyhemoglobin Total Hemoglobin O2 Delivery Level POC Sodium Sodium 133 POC Potassium Potassium 4.1 POC Chloride Chloride 97 Carbon Dioxide 28 POC Total CO2 Anion Gap 8.0 POC BUN BUN 18 Creatinine 1.8 H POC Creatinine GFR Calculation 49 Glucose 178 H POC Glucose Hemoglobin A1c Estim Average Glucose Uric Acid 5.1 Calcium 7.3 L POC WB Ioniz Calcium Phosphorus 3.4 Magnesium 2.5 Total Bilirubin < 0.2 Direct Bilirubin < 0.2 GGT 13 AST 16 ALT 13 Alkaline Phosphatase 87 Lactate Dehydrogenase 148 Total Protein 5.0 L Albumin 2.6 L Globulin 2.4 Albumin/Globulin Ratio 1.1 Triglycerides 153 H Beta-Hydroxybutyrate Procalcitonin Urine Color Straw Urine Appearance Clear Urine pH 8.0 Ur Specific [place] 1.012 Urine Protein 100 A Urine Glucose (UA) >=500 A Urine Ketones 5/tr A Urine Occult Blood Neg Urine Nitrate Neg Urine Bilirubin Neg Urine Urobilinogen Neg Ur Leukocyte Esterase Neg Urine RBC 1 Urine WBC 1 Ur Squamous Epith Cells 0 Urine Bacteria 0 Ur Culture Indicated? No Vancomycin Trough 9.9 Urine Opiates Screen Ur Opiates Confirm Ur Oxycodone Screen Urine Methadone Screen Ur Methadone Confirm Ur Barbiturates Screen Ur Barbiturate Confirm Ur Phencyclidine Scrn Urine PCP Confirm Ur Amphetamines Screen U Benzodiazepines Scrn U Benzodiazepine Confm Urine Cocaine Screen Urine Cocaine Confirm U Cannabinoids Confirm U Marijuana (THC) Screen Urine Alcohol 12/25/18 12/24/18 12/24/18 03:40 22:20 18:51 WBC 9.8 RBC 3.20 L Hgb 9.6 L Hct 29.4 L POC Hct MCV 92.1 MCH 30.1 MCHC 32.7 RDW 12.8 Plt Count 211 MPV 10.0 Gran % 68.6 Lymph % (Auto) 21.8 [place] % (Auto) 8.9 Eos % (Auto) 0.4 Baso % (Auto) 0.3 Gran # 6.7 Lymph # (Auto) 2.1 [place] # (Auto) 0.9 Eos # (Auto) 0 Baso # (Auto) 0 ABG Methemoglobin 0 L VBG pH 7.44 H VBG pCO2 48.8 VBG pO2 57 H VBG HCO3 32.3 H VBG Total CO2 33.8 H VBG O2 Saturation 85.1 H VBG Base Excess 7.1 H VBG Lactic Acid Carboxyhemoglobin 2.9 H Total Hemoglobin 10.5 L O2 Delivery Level Not Reportable POC Sodium Sodium 131 L POC Potassium Potassium 4.0 POC Chloride Chloride 91 L Carbon Dioxide 30 POC Total CO2 Anion Gap 10.0 POC BUN BUN 23 H Creatinine 2.1 H POC Creatinine GFR Calculation 41 Glucose 146 H POC Glucose Hemoglobin A1c Estim Average Glucose Uric Acid Calcium 7.2 L POC WB Ioniz Calcium Phosphorus 4.4 Magnesium Total Bilirubin Direct Bilirubin GGT AST ALT Alkaline Phosphatase Lactate Dehydrogenase Total Protein Albumin Globulin Albumin/Globulin Ratio Triglycerides Beta-Hydroxybutyrate 0.10 Procalcitonin Urine Color Urine Appearance Urine pH Ur Specific [place] Urine Protein Urine Glucose (UA) Urine Ketones Urine Occult Blood Urine Nitrate Urine Bilirubin Urine Urobilinogen Ur Leukocyte Esterase Urine RBC Urine WBC Ur Squamous Epith Cells Urine Bacteria Ur Culture Indicated? Vancomycin Trough Urine Opiates Screen Ur Opiates Confirm Ur Oxycodone Screen Urine Methadone Screen Ur Methadone Confirm Ur Barbiturates Screen Ur Barbiturate Confirm Ur Phencyclidine Scrn Urine PCP Confirm Ur Amphetamines Screen U Benzodiazepines Scrn U Benzodiazepine Confm Urine Cocaine Screen Urine Cocaine Confirm U Cannabinoids Confirm U Marijuana (THC) Screen Urine Alcohol 12/24/18 12/24/18 12/24/18 14:00 12:57 12:57 WBC RBC Hgb Hct POC Hct MCV MCH MCHC RDW Plt Count MPV Gran % Lymph % (Auto) [place] % (Auto) Eos % (Auto) Baso % (Auto) Gran # Lymph # (Auto) [place] # (Auto) Eos # (Auto) Baso # (Auto) ABG Methemoglobin 0.3 L VBG pH 7.56 H VBG pCO2 40.9 L VBG pO2 40 VBG HCO3 35.8 H VBG Total CO2 37.1 H VBG O2 Saturation 70.6 H VBG Base Excess 12.5 H VBG Lactic Acid 1.9 Carboxyhemoglobin 3.1 H Total Hemoglobin 11.2 L O2 Delivery Level Not Reportable POC Sodium Sodium POC Potassium Potassium POC Chloride Chloride Carbon Dioxide POC Total CO2 Anion Gap POC BUN BUN Creatinine POC Creatinine GFR Calculation Glucose POC Glucose Hemoglobin A1c Estim Average Glucose Uric Acid Calcium POC WB Ioniz Calcium Phosphorus Magnesium Total Bilirubin Direct Bilirubin GGT AST ALT Alkaline Phosphatase Lactate Dehydrogenase Total Protein Albumin Globulin Albumin/Globulin Ratio Triglycerides Beta-Hydroxybutyrate Procalcitonin Urine Color Urine Appearance Urine pH Ur Specific [place] Urine Protein Urine Glucose (UA) Urine Ketones Urine Occult Blood Urine Nitrate Urine Bilirubin Urine Urobilinogen Ur Leukocyte Esterase Urine RBC Urine WBC Ur Squamous Epith Cells Urine Bacteria Ur Culture Indicated? Vancomycin Trough Urine Opiates Screen None detected Ur Opiates Confirm Not Reportable Ur Oxycodone Screen None detected Urine Methadone Screen None detected Ur Methadone Confirm Not Reportable Ur Barbiturates Screen None detected Ur Barbiturate Confirm Not Reportable Ur Phencyclidine Scrn None detected Urine PCP Confirm Not Reportable Ur Amphetamines Screen None detected U Benzodiazepines Scrn None detected U Benzodiazepine Confm Not Reportable Urine Cocaine Screen None detected Urine Cocaine Confirm Not Reportable U Cannabinoids Confirm Not Reportable U Marijuana (THC) Screen Suspect positive A Urine Alcohol None detected 12/24/18 12/24/18 12/24/18 12:57 10:06 10:01 WBC RBC Hgb Hct POC Hct MCV MCH MCHC RDW Plt Count MPV Gran % Lymph % (Auto) [place] % (Auto) Eos % (Auto) Baso % (Auto) Gran # Lymph # (Auto) [place] # (Auto) Eos # (Auto) Baso # (Auto) ABG Methemoglobin VBG pH VBG pCO2 VBG pO2 VBG HCO3 VBG Total CO2 VBG O2 Saturation VBG Base Excess VBG Lactic Acid 2.9 H Carboxyhemoglobin Total Hemoglobin O2 Delivery Level POC Sodium Sodium 132 L 131 L POC Potassium Potassium 3.0 L 2.8 L* POC Chloride Chloride 85 L 67 L Carbon Dioxide 33 H 37 H POC Total CO2 Anion Gap 14.0 27.0 H POC BUN BUN 27 H 33 H Creatinine 2.4 H 2.9 H POC Creatinine GFR Calculation 35 28 Glucose 200 H 234 H POC Glucose Hemoglobin A1c 9.1 H Estim Average Glucose 214 Uric Acid 6.8 9.4 H Calcium 7.2 L 9.6 POC WB Ioniz Calcium Phosphorus 1.3 L 4.1 Magnesium 2.7 H 3.6 H Total Bilirubin 0.3 0.3 Direct Bilirubin < 0.2 < 0.2 GGT 15 23 AST 20 29 ALT 16 23 Alkaline Phosphatase 108 160 H Lactate Dehydrogenase 150 214 Total Protein 5.8 L 8.1 Albumin 3.1 L 4.2 Globulin 2.7 3.9 H Albumin/Globulin Ratio 1.1 1.1 Triglycerides 145 201 H Beta-Hydroxybutyrate 1.80 H Procalcitonin Urine Color Urine Appearance Urine pH Ur Specific [place] Urine Protein Urine Glucose (UA) Urine Ketones Urine Occult Blood Urine Nitrate Urine Bilirubin Urine Urobilinogen Ur Leukocyte Esterase Urine RBC Urine WBC Ur Squamous Epith Cells Urine Bacteria Ur Culture Indicated? Vancomycin Trough Urine Opiates Screen Ur Opiates Confirm Ur Oxycodone Screen Urine Methadone Screen Ur Methadone Confirm Ur Barbiturates Screen Ur Barbiturate Confirm Ur Phencyclidine Scrn Urine PCP Confirm Ur Amphetamines Screen U Benzodiazepines Scrn U Benzodiazepine Confm Urine Cocaine Screen Urine Cocaine Confirm U Cannabinoids Confirm U Marijuana (THC) Screen Urine Alcohol 12/24/18 12/24/18 12/24/18 10:01 10:01 10:01 WBC RBC Hgb Hct POC Hct 46.0 MCV MCH MCHC RDW Plt Count MPV Gran % Lymph % (Auto) [place] % (Auto) Eos % (Auto) Baso % (Auto) Gran # Lymph # (Auto) [place] # (Auto) Eos # (Auto) Baso # (Auto) ABG Methemoglobin VBG pH VBG pCO2 VBG pO2 VBG HCO3 VBG Total CO2 VBG O2 Saturation VBG Base Excess VBG Lactic Acid Carboxyhemoglobin Total Hemoglobin O2 Delivery Level POC Sodium 127 L Sodium 132 L POC Potassium 2.6 L* Potassium 2.8 L* POC Chloride 67 L Chloride 68 L Carbon Dioxide 40 H POC Total CO2 > 50 H* Anion Gap 24.0 H POC BUN 31 H BUN 32 H Creatinine 2.8 H POC Creatinine 3.0 H GFR Calculation 29 Glucose 232 H POC Glucose 236 H Hemoglobin A1c Estim Average Glucose Uric Acid Calcium 9.5 POC WB Ioniz Calcium 0.87 L Phosphorus Magnesium Total Bilirubin 0.4 Direct Bilirubin GGT AST 29 ALT 23 Alkaline Phosphatase 156 H Lactate Dehydrogenase Total Protein 8.2 Albumin 4.3 Globulin 3.9 H Albumin/Globulin Ratio 1.1 Triglycerides Beta-Hydroxybutyrate 3.73 H Procalcitonin < 0.10 Urine Color Urine Appearance Urine pH Ur Specific [place] Urine Protein Urine Glucose (UA) Urine Ketones Urine Occult Blood Urine Nitrate Urine Bilirubin Urine Urobilinogen Ur Leukocyte Esterase Urine RBC Urine WBC Ur Squamous Epith Cells Urine Bacteria Ur Culture Indicated? Vancomycin Trough Urine Opiates Screen Ur Opiates Confirm Ur Oxycodone Screen Urine Methadone Screen Ur Methadone Confirm Ur Barbiturates Screen Ur Barbiturate Confirm Ur Phencyclidine Scrn Urine PCP Confirm Ur Amphetamines Screen U Benzodiazepines Scrn U Benzodiazepine Confm Urine Cocaine Screen Urine Cocaine Confirm U Cannabinoids Confirm U Marijuana (THC) Screen Urine Alcohol 12/24/18 10:01 WBC 16.9 H RBC 4.91 Hgb 14.9 Hct 44.6 POC Hct MCV 90.8 MCH 30.3 MCHC 33.3 RDW 12.8 Plt Count 371 MPV 10.5 H Gran % 82.7 H Lymph % (Auto) 10.9 L [place] % (Auto) 6.0 Eos % (Auto) 0.1 Baso % (Auto) 0.3 Gran # 14.0 H Lymph # (Auto) 1.8 [place] # (Auto) 1.0 H Eos # (Auto) 0 Baso # (Auto) 0 ABG Methemoglobin VBG pH VBG pCO2 VBG pO2 VBG HCO3 VBG Total CO2 VBG O2 Saturation VBG Base Excess VBG Lactic Acid Carboxyhemoglobin Total Hemoglobin O2 Delivery Level POC Sodium Sodium POC Potassium Potassium POC Chloride Chloride Carbon Dioxide POC Total CO2 Anion Gap POC BUN BUN Creatinine POC Creatinine GFR Calculation Glucose POC Glucose Hemoglobin A1c Estim Average Glucose Uric Acid Calcium POC WB Ioniz Calcium Phosphorus Magnesium Total Bilirubin Direct Bilirubin GGT AST ALT Alkaline Phosphatase Lactate Dehydrogenase Total Protein Albumin Globulin Albumin/Globulin Ratio Triglycerides Beta-Hydroxybutyrate Procalcitonin Urine Color Urine Appearance Urine pH Ur Specific [place] Urine Protein Urine Glucose (UA) Urine Ketones Urine Occult Blood Urine Nitrate Urine Bilirubin Urine Urobilinogen Ur Leukocyte Esterase Urine RBC Urine WBC Ur Squamous Epith Cells Urine Bacteria Ur Culture Indicated? Vancomycin Trough Urine Opiates Screen Ur Opiates Confirm Ur Oxycodone Screen Urine Methadone Screen Ur Methadone Confirm Ur Barbiturates Screen Ur Barbiturate Confirm Ur Phencyclidine Scrn Urine PCP Confirm Ur Amphetamines Screen U Benzodiazepines Scrn U Benzodiazepine Confm Urine Cocaine Screen Urine Cocaine Confirm U Cannabinoids Confirm U Marijuana (THC) Screen Urine Alcohol Medical - DS: A/P - Patient/Caregiver Discharge Instructions Activity: increase activity as tolerated Diet: Consistent Carbohydrate Additional Instructions: Avoid marijuana for total of 2 weeks, to see if this helps improve your symptoms Start using Omeprazole (OTC) 20mg a day, take the medication 30mins before a meal Please stay well hydrated Talk to your PCP regarding getting a HIDA scan to evaluate your gall bladder, you have gall stones on the CT scan, and this may worsen your nausea symptoms. Make sure you follow up with your GI doctor if your symptoms persist. Go to the ER if you are not feeling well, fever, chest pain, shortness of breath or any other acute concern. - Follow up Plan Follow up with: Alexia Crouch ARNP [Primary Care Provider] - 01/04/19 9:45 am (Continue with your previously scheduled appointment.) Disposition: Home, Self-Care Prognosis: Fair Rehab Potential: Fair I certify that the patient requires SNF services: No Overall status at discharge: patient is progressing back to baseline Medical - DS: Qual - VTE Deep Vein Thrombosis/Pulmonary Embolism Present on Admission: No
[2018-12-25] MEDS ORDERED: INSULIN LISPRO 1 UNIT/0.01 ML UNIT SQ SCH (12:00)
[2018-12-25] MEDS ORDERED: 0.9 % SODIUM CHLORIDE 10 ML SYRINGE IV SCH (14:00)
[2018-12-25] MEDS ORDERED: INSULIN GLARGINE, HUMAN 1 UNIT/0.01 ML SQ SCH (21:00)
[2018-12-26] MEDS ORDERED: PANTOPRAZOLE 40 MG VIAL IV SCH (07:30)
[2018-12-27 07:54] LABS: Cannabinoid Confirmation POSITIVE (N)
== END 2018-12-25 09:51 | disposition home or self-care (01) ==
LOC: ED 09:39 → INTOOBSV 12:20 → ICU 12:20
PROVIDERS: ADMIT Internal Medicine; ATTEND Internal Medicine

== ENCOUNTER 2019-03-24 17:28 | Inpatient (IN) ==
[2019-03-24] MEDS ORDERED: LACTATED RINGERS 1,000 ML IV ONE ×2 (17:43→17:44)
[2019-03-24] MEDS ORDERED: PROMETHAZINE 25 MG/ML VIAL IV ONE (17:43)
[2019-03-24] MEDS ORDERED: 0.9 % SODIUM CHLORIDE 1,000 ML IV ONE (17:43)
[2019-03-24] MEDS ORDERED: ONDANSETRON 4 MG/2 ML VIAL IV ONE ×2 (17:43→21:45)
[2019-03-24] MEDS ORDERED: LORazepam 2 MG/ML VIAL IV ONE (17:45)
[2019-03-24] MEDS ORDERED: INSULIN GLARGINE, HUMAN 1 UNIT/0.01 ML SQ ONE (17:46)
[2019-03-24] MEDS ORDERED: INSULIN REGULAR, HUMAN 1 UNIT/0.01 ML UNIT IV ONE (17:46)
--- NOTE | 2019-03-24 17:47 | Emergency Department Note ---
Nausea/Vomiting/Diarrhea HPI - General Chief complaint: Nausea/Vomiting/Diarrhea Stated complaint: N/v Time Seen by Provider: 03/24/19 17:42 Source: patient Mode of arrival: wheelchair Limitations: no limitations - History of Present Illness HPI Narrative: Patient with a known history of diabetic gastroparesis. Notably he also smokes marijuana on a daily basis him. Today he comes in with retching, dry heaving, vomiting up clear fluid. Unable to hold much down. Earlier his blood sugar readings were 500. On arrival here he is over 500. Not feeling well in general, mild amount of midepigastric abdominal pain. Patient does have a long- standing history of diabetes, more than 20 years up. He is insulin-dependent. Has an insulin pump which she states is working, he did bolus himself 12 units of Humalog earlier this afternoon. This is about one hour ago. No chest pain no shortness of breath. He denies headache does have nausea vomiting. No diarrhea. Abdominal pain as above, denies any flank pain, denies urinary symptoms. - Related Data Home Medications Medication Instructions Recorded Confirmed insulin syringe U-100 with needle See Dose Instructions .ROUTE 03/27/15 02/21/19 1/2 mL 31 gauge x 15/64" .MEDSUPPLY Gabapentin [Neurontin] 600 mg PO TID 12/24/18 02/21/19 LORazepam [Ativan] 0.5 mg PO TID PRN 12/24/18 02/21/19 Lisinopril [Zestril] 10 mg PO HS 12/24/18 02/21/19 Atorvastatin [Lipitor] 40 mg PO HS 02/13/19 02/21/19 Blood Sugar Diagnostic [Assure 0 each .ROUTE .MEDSUPPLY MDD 4 02/13/19 02/21/19 Prism Multi] Blood-Glucose Meter [Contour] 0 each .ROUTE .MEDSUPPLY 02/13/19 02/21/19 Diabetic Shoes 1 each .ROUTE DAILY 02/13/19 02/21/19 Melatonin 10 mg PO HS 02/13/19 02/21/19 Ranitidine HCl [Zantac] 150 mg PO BID 02/13/19 02/21/19 Sildenafil Citrate [Viagra] 100 mg PO DAILY PRN 02/13/19 02/21/19 cloNIDine [Catapres-Tts 1] 1 patch TOPICAL WEEKLY 02/13/19 02/21/19 Erythromycin Base [Erythromycin] 250 mg PO TID 02/16/19 02/21/19 Venlafaxine HCl [Venlafaxine HCl 150 mg PO DAILY 02/21/19 02/21/19 ER] Previous Rx's Medication Instructions Recorded glucagon (human recombinant) 1 mg 1 mg IM ONCE PRN #7 each 10/02/15 injection kit insulin lispro (U- 100) 100 See Rx Instructions SUB-Q QDAY #10 04/20/17 unit/mL subcutaneous solution ml ondansetron 4 mg disintegrating 4 mg PO Q6H #20 tab 08/12/17 tablet Allergies Allergy/AdvReac Type Severity Reaction Status Date / Time silver Allergy Rash Verified 03/24/19 17:28 prochlorperazine AdvReac Mild "My whole Verified 03/24/19 17:28 [From Compazine] body freaks out." metoclopramide [From Reglan] AdvReac Agitated Verified 03/24/19 17:28 Review of Systems All systems ED: reviewed and negative except as stated. Past Medical History - Past Medical History Source: nursing notes reviewed Medical history: Reports: DM, other (type 1 diabetes, history of diabetic gas tropathy.) Surgical history ED: Reports: non-contributory Family history: Reports: non-contributory - Social History smoking status: Current some day smoker Drug use: Reports: marijuana Physical Exam Limitations: no limitations General appearance: alert, in distress, malaise Head: atraumatic, normocephalic, normal inspection Eye: Present: normal appearance, PERRL, EOMI, visual velazquez intact. Absent: periorbital swelling, periorbital tenderness ENT: Present: normal exam, mucous membranes dry, TM's normal bilaterally, normal external ear exam Neck: Present: normal inspection, full ROM, trachea midline. Absent: ten derness, meningismus, lymphadenopathy, thyromegaly Chest: Present: normal inspection, symmetric chest wall rise. Absent: tenderness Respiratory: Present: normal lung sounds bilaterally. Absent: respiratory distress, rales/crackles Cardiovascular: Present: regular rate, normal heart sounds Abdominal: Present: soft, tenderness, normal bowel sounds. Absent: distention, guarding Abdominal tenderness: Present: epigastrium, mild Extremities: Present: normal inspection, full ROM. Absent: tenderness, pedal edema Back: Present: normal inspection. Absent: CVA tenderness (R), CVA tenderness (L), vertebral tenderness Neurological: Present: alert, oriented X3, CN II-XII intact. Absent: motor sensory deficit Psychiatric: Present: depressed, flat affect Skin: Present: warm, dry, pallor Course Vital Signs Pulse Rate 114 H 03/24/19 17:29 Respiratory Rate 20 03/24/19 17:29 Blood Pressure 138/99 03/24/19 17:29 Pulse Oximetry (%) 100 03/24/19 17:29 Pulse Rate 114 H 03/24/19 17:29 Respiratory Rate 20 03/24/19 17:29 Blood Pressure 120/73 03/24/19 21:45 Pulse Oximetry (%) 100 03/24/19 17:29 Nausea/Vomiting/Diarrhea - MDM Narrative Medical decision making narrative: Patient is quite dehydrated. Discussed hospital admission with Dr. Collins. Final diagnosis is #1 diabetic gastroparesis. #2 cyclic vomiting #3 renal insufficiency acute on chronic. Number for dehydration - Lab Data Lab results reviewed: Yes I reviewed the patient's lab results. Result diagrams: 03/24/19 18:08 03/24/19 18:08 Lab Results 03/24/19 03/24/19 03/24/19 Range/Units 18:08 18:08 18:08 WBC 10.9 (4.5-11.0) K/mcL RBC 4.54 (4.50-5.90) M/mcL Hgb 13.4 L (13.5-16.5) g/dL Hct 40.1 L (41.0-55.0) % MCV 88.3 (80.0-100.0) fL MCH 29.5 (26.0-34.0) pg MCHC 33.4 (31.0-36.0) g/dL RDW 12.5 (11.5-14.5) % Plt Count 372 (140-440) K/mcL MPV 9.0 (7.4-10.4) fL Gran % 88.8 H (38.0-78.0) % Lymph % (Auto) 7.9 L (15.5-49.0) % [place] % (Auto) 3.1 (1.0-12.0) % Eos % (Auto) 0 (0.0-7.0) % Baso % (Auto) 0.2 (0.0-2.0) % Gran # 9.6 H (1.8-8.0) K/mcL Lymph # (Auto) 0.9 L (1.5-4.8) K/mcL [place] # (Auto) 0.3 (0.1-0.9) K/mcL Eos # (Auto) 0 (0.0-0.7) K/mcL Baso # (Auto) 0 (0.0-0.3) K/mcL VBG Lactic Acid 3.3 H (0.5-2.0) mmol/L Sodium 134 (133-145) mmol/L Potassium 3.5 (3.3-5.1) mmol/L Chloride 73 L (96-108) mmol/L Carbon Dioxide 29 (22-30) mmol/L Anion Gap 32.0 H (8-16) BUN 37 H (6-20) mg/dl Creatinine 2.8 H (0.7-1.2) mg/dl GFR Calculation 29 Glucose 590 H* (70-105) mg/dL Osmolality (280-300) mOSM/kg Calcium 10.0 (8.6-10.4) mg/dl Magnesium 3.0 H (1.6-2.5) mg/dL Total Bilirubin 0.4 (0.0-1.0) mg/dL AST 18 (0-37) U/l ALT 27 (0-40) U/l Alkaline Phosphatase 155 H (39-117) U/L C-Reactive Protein < 0.3 (0.0-0.8) mg/dl Total Protein 8.7 H (5.9-8.4) gm/dL Albumin 4.5 (3.2-5.2) gm/dL Globulin 4.2 H (2.2-3.7) gm/dL Albumin/Globulin Ratio 1.1 (1.0-2.3) Lipase (7-60) U/L 03/24/19 03/24/19 Range/Units 18:08 18:08 WBC (4.5-11.0) K/mcL RBC (4.50-5.90) M/mcL Hgb (13.5-16.5) g/dL Hct (41.0-55.0) % MCV (80.0-100.0) fL MCH (26.0-34.0) pg MCHC (31.0-36.0) g/dL RDW (11.5-14.5) % Plt Count (140-440) K/mcL MPV (7.4-10.4) fL Gran % (38.0-78.0) % Lymph % (Auto) (15.5-49.0) % [place] % (Auto) (1.0-12.0) % Eos % (Auto) (0.0-7.0) % Baso % (Auto) (0.0-2.0) % Gran # (1.8-8.0) K/mcL Lymph # (Auto) (1.5-4.8) K/mcL [place] # (Auto) (0.1-0.9) K/mcL Eos # (Auto) (0.0-0.7) K/mcL Baso # (Auto) (0.0-0.3) K/mcL VBG Lactic Acid (0.5-2.0) mmol/L Sodium (133-145) mmol/L Potassium (3.3-5.1) mmol/L Chloride (96-108) mmol/L Carbon Dioxide (22-30) mmol/L Anion Gap (8-16) BUN (6-20) mg/dl Creatinine (0.7-1.2) mg/dl GFR Calculation Glucose (70-105) mg/dL Osmolality 338 H (280-300) mOSM/kg Calcium (8.6-10.4) mg/dl Magnesium (1.6-2.5) mg/dL Total Bilirubin (0.0-1.0) mg/dL AST (0-37) U/l ALT (0-40) U/l Alkaline Phosphatase (39-117) U/L C-Reactive Protein (0.0-0.8) mg/dl Total Protein (5.9-8.4) gm/dL Albumin (3.2-5.2) gm/dL Globulin (2.2-3.7) gm/dL Albumin/Globulin Ratio (1.0-2.3) Lipase 11 (7-60) U/L Disposition Pt seen by DIRECTOR [employer]OTHER[employer]PERATIONS/PA only: No Clinical Impression: Drug-induced nausea and vomiting, Diabetes mellitus type I, Diabetic hyperosmolar non-ketotic state Disposition: Xfer As Inpt ([facility]) Condition: Fair Referrals: Alexia Crouch ARNP [Primary Care Provider] -
[2019-03-24] MEDS ORDERED: ESOMEPRAZOLE 40 MG VIAL IV SCH (18:00)
[2019-03-24 19:13] LABS: Basophils # (Auto) 0 K/mcL (0.0-0.3); Basophils % (Auto) 0.2 % (0.0-2.0); Eosinophils # (Auto) 0 K/mcL (0.0-0.7); Eosinophils % (Auto) 0 % (0.0-7.0); Granulocytes % (Auto) 88.8 % (38.0-78.0); Hematocrit 40.1 % (41.0-55.0); Hemoglobin 13.4 g/dL (13.5-16.5); Lymphocytes # (Auto) 0.9 K/mcL (1.5-4.8); Lymphocytes % (Auto) 7.9 % (15.5-49.0); Mean Cell Volume 88.3 fL (80.0-100.0); Mean Corpuscular HGB Conc 33.4 g/dL (31.0-36.0); Monocytes # (Auto) 0.3 K/mcL (0.1-0.9); Monocytes % (Auto) 3.1 % (1.0-12.0); Platelet Count 372 K/mcL (140-440); RBC 4.54 M/mcL (4.50-5.90); Red Cell Distribution Width 12.5 % (11.5-14.5); WBC 10.9 K/mcL (4.5-11.0)
[2019-03-24 19:26] LABS: ALT/SGPT 27 U/l (0-40); AST/SGOT 18 U/l (0-37); Albumin 4.5 gm/dL (3.2-5.2); Albumin/Globulin Ratio 1.1 (1.0-2.3); Alkaline Phosphatase 155 U/L (39-117); Bilirubin,Total 0.4 mg/dL (0.0-1.0); Blood Urea Nitrogen 37 mg/dl (6-20); C-Reactive Protein < 0.3 mg/dl (0.0-0.8); Carbon Dioxide 29 mmol/L (22-30); Chloride 73 mmol/L (96-108); Globulin 4.2 gm/dL (2.2-3.7); Glomerular Filtration Rate 29; Glucose 590 mg/dL (70-105)
[2019-03-24] MEDS ORDERED: INSULIN REGULAR, HUMAN 50 UNIT in 0.9 % SODIUM CHLORIDE 99.5 ML IV SCH ×2 (21:45→23:21)
[2019-03-24] MEDS ORDERED: 0.9 % SODIUM CHLORIDE 1,000 ML IV SCH ×2 (21:45)
[2019-03-24] MEDS ORDERED: ONDANSETRON 4 MG/2 ML VIAL ONE (21:48)
[2019-03-24] MEDS ORDERED: INSULIN REGULAR, HUMAN 1 UNIT/0.01 ML UNIT ONE (21:53)
--- NOTE | 2019-03-24 22:27 | Internal Med History&Physical ---
Medical - H&P: [facility] Patient information: Note initiated : 03/24/19 at 10:24 pm Service Date, if different from initiated Date: [] Patient: Mauri Levine a 33 y/o M admitted on for N/v. Chief Complaint: [] History of present illness: Mr. Levine is a 33 year old M Who gets admitted every once a while for hyperglycemia gastroparesis. She follows [facility]. He is on erythromycin at home has been intolerant to Reglan. States he wakes up every morning and vomits. This been going on for at least a year. Occasionally the nausea vomiting will become severe enough to where he becomes dehydrated and is sugars become abnormal and comes into the hospital. There is a morning woke up and vomited and then continued on through the next couple days. Is been able to keep anything down. In the ER his creatinine was up from baseline his chloride is severely down his osmolality was high at 338 his lactate was 3.3. Is mildly tachycardic blood pressures were low 1 teens when he came in but did have some 88's later on improved with the fluid. Patient denies any recent illnesses or malfunctioning insulin pump. Denies any dietary indiscretions. Review of Systems: Pertinent positives as above. Denies headache/fever/chills/chest or abdominal pain/cough/dyspnea/diarrhea. Many 10 point review of system reviewed negative Medical - H&P: [facility] Medical history: Medical History (Last Updated 02/13/19 @ 09:37 by Ralph Florence DO) Tardive dyskinesia (Resolved) History of neuroleptic malignant syndrome (Chronic) Peripheral autonomic neuropathy due to DM (Chronic) Diabetic peripheral neuropathy (Chronic) Hyperlipidemia (Chronic) Hypertension, essential (Chronic) Diabetes mellitus type I (Chronic) DKA, type 1 (Resolved) Other hammer toe(s) (acquired), left foot (Chronic) Esophageal candidiasis (Chronic) GERD (gastroesophageal reflux disease) (Chronic) Nausea and vomiting (Chronic) Abdominal pain, epigastric (Chronic) Gastroparesis due to DM (Chronic) Testosterone deficiency (Chronic) Chronic ulcer of left foot (Resolved) Coffee ground emesis (Resolved) Hallux valgus (acquired), left foot (Resolved) Hypokalemia (Resolved) Connie-Byrne tear (Resolved) Non-pressure chronic ulcer of other part of left foot limited to breakdown of skin (Resolved) Sepsis (Resolved) Past Surgical History (Last Updated 02/13/19 @ 09:32 by Ralph Florence DO) History of toe surgery (Acute) Family History Mother Atrial fibrillation Essential hypertension Sister Malignant neoplasm of female breast Maternal Grandfather Malignant neoplasm of colon Father Essential hypertension Other DKA, type 1 Social History (Last Updated 05/24/17 @ 11:48 by Marcelo Zamarripa MD) Quit smoking 6 years ago denies alcohol use is marijuana daily Medical - H&P: Meds Home Medications Medication Instructions Recorded Confirmed Type insulin syringe U-100 with needle See Dose Instructions .ROUTE 03/27/15 02/21/19 History 1/2 mL 31 gauge x 15/64" .MEDSUPPLY glucagon (human recombinant) 1 mg 1 mg IM ONCE PRN #7 each 10/02/15 02/21/19 Rx injection kit insulin lispro (U- 100) 100 See Rx Instructions SUB-Q QDAY #10 04/20/17 02/21/19 Rx unit/mL subcutaneous solution ml ondansetron 4 mg disintegrating 4 mg PO Q6H #20 tab 08/12/17 02/21/19 Rx tablet Gabapentin [Neurontin] 600 mg PO TID 12/24/18 02/21/19 History LORazepam [Ativan] 0.5 mg PO TID PRN 12/24/18 02/21/19 History Lisinopril [Zestril] 10 mg PO HS 12/24/18 02/21/19 History Atorvastatin [Lipitor] 40 mg PO HS 02/13/19 02/21/19 History Blood Sugar Diagnostic [Assure 0 each .ROUTE .MEDSUPPLY MDD 4 02/13/19 02/21/19 History Prism Multi] Blood-Glucose Meter [Contour] 0 each .ROUTE .MEDSUPPLY 02/13/19 02/21/19 History Diabetic Shoes 1 each .ROUTE DAILY 02/13/19 02/21/19 History Melatonin 10 mg PO HS 02/13/19 02/21/19 History Ranitidine HCl [Zantac] 150 mg PO BID 02/13/19 02/21/19 History Sildenafil Citrate [Viagra] 100 mg PO DAILY PRN 02/13/19 02/21/19 History cloNIDine [Catapres-Tts 1] 1 patch TOPICAL WEEKLY 02/13/19 02/21/19 History Erythromycin Base [Erythromycin] 250 mg PO TID 02/16/19 02/21/19 History Venlafaxine HCl [Venlafaxine HCl 150 mg PO DAILY 02/21/19 02/21/19 History ER] Allergies Allergy/AdvReac Type Severity Reaction Status Date / Time silver Allergy Rash Verified 03/24/19 17:28 prochlorperazine AdvReac Mild "My whole Verified 03/24/19 17:28 [From Compazine] body freaks out." metoclopramide [From Reglan] AdvReac Agitated Verified 03/24/19 17:28 Medical - H&P: Exam - Constitutional Vitals: Pulse Resp BP Pulse Ox 114 H 20 101/62 100 03/24/19 17:29 03/24/19 22:08 03/24/19 22:00 03/24/19 17:29 Exam: General: Alert, Awake, No acute Distress Eyes/N/T: EOMI, PEERL, DMM Head/Neck: neck supple, normocephalic atraumatic CV: RRR, No murmurs, normal s1/s2 Pulm: Clear b/l, no wheezing/rhonchi/rales Abd: soft, nontender, +BS x4 Ext: no clubbing/cyanosis/edema Neuro: Alert, no focal deficits, moves all extremities, CN 2-12 grossly intact, symmetrical strength b/l upper/lower, sensations intact b/l upper/lower Skin: warm/dry Medical - H&P: Reslt - Labs CBC & Chem 7: 03/24/19 18:08 03/24/19 18:08 Labs: Short CBC 03/24/19 Range/Units 18:08 WBC 10.9 (4.5-11.0) K/mcL Hgb 13.4 L (13.5-16.5) g/dL Hct 40.1 L (41.0-55.0) % Plt Count 372 (140-440) K/mcL BMP 03/24/19 18:08 Sodium 134 Potassium 3.5 Chloride 73 L Carbon Dioxide 29 BUN 37 H Creatinine 2.8 H Glucose 590 H* Calcium 10.0 Liver Function 03/24/19 Range/Units 18:08 Total Bilirubin 0.4 (0.0-1.0) mg/dL AST 18 (0-37) U/l ALT 27 (0-40) U/l Alkaline Phosphatase 155 H (39-117) U/L Albumin 4.5 (3.2-5.2) gm/dL - Impressions ABG with alkalosis and CO2 is 40. Medical - H&P: A/P - Narrative A/P Narrative: A: *HHS: *Diabetic gastroparesis: *Lactic acidosis: *Hypovolemia: *ROSALIO on CKD III: *Neuropathy: On gabapentin *HTN: On monitoring patch and lisinopril low-dose *Anxiety/depression: On Ativan and venlafaxine *GERD: * P: -Insulin drip -IV fluids -Monitor electrolytes -UDS -Follow-up osmolality lactate in the morning -trial Ice chips if patient is tolerant and advance diet as able -Antiemetics -hold ACEI for ROSALIO -clarify home meds -ppx: Lovenox/H2
[2019-03-24] MEDS ORDERED: ONDANSETRON 4 MG/2 ML VIAL IV PRN (23:21)
[2019-03-24] MEDS ORDERED: POTASSIUM CHLORIDE 40 MEQ in DEXTROSE 5% IN WATER 500 ML IV PRN (23:21)
[2019-03-24] MEDS ORDERED: hydrALAZINE 20 MG/ML VIAL IV PRN (23:21)
[2019-03-24] MEDS ORDERED: ONDANSETRON 4 MG ODT TABLET SL PRN (23:21)
[2019-03-24] MEDS ORDERED: PROMETHAZINE 12.5 MG SUPP.RECT PR PRN (23:21)
[2019-03-24] MEDS ORDERED: IPRATROPIUM/ALBUTEROL 3 ML AMPUL.NEB NEB PRN (23:21)
[2019-03-24] MEDS ORDERED: POLYETHYLENE GLYCOL 3350 17 GM PACKET PO PRN (23:21)
[2019-03-24] MEDS ORDERED: KETAMINE 10 MG/ML ML IV ONE (23:21)
[2019-03-24] MEDS ORDERED: LORazepam 2 MG/ML VIAL IV PRN (23:21)
[2019-03-24] MEDS ORDERED: diphenhydrAMINE 50 MG/ML VIAL IV PRN (23:21)
[2019-03-24] MEDS ORDERED: ACETAMINOPHEN 325 MG TABLET PO PRN (23:21)
[2019-03-24] MEDS ORDERED: POTASSIUM CHLORIDE 20 MEQ TABLET PO PRN ×2 (23:21)
[2019-03-24] MEDS ORDERED: PROCHLORPERAZINE 10 MG/2 ML VIAL IV PRN (23:21)
[2019-03-24] MEDS ORDERED: MAGNESIUM SULFATE 2 GM/50 ML BAG IV PRN (23:21)
[2019-03-25] MEDS ORDERED: hydrALAZINE 20 MG/ML VIAL ONE (00:11)
[2019-03-25 00:16] LABS: Estimated Average Glucose(eAG) 258 mg/dL; Hemoglobin A1C 10.6 % HGB (4.0-6.0)
[2019-03-25] MEDS: DEXTROSE 5% IV SCH ×2 (00:28→10:33)
[2019-03-25] MEDS: POTASSIUM CHLORIDE IV SCH ×2 (00:28→10:33)
[2019-03-25] MEDS: [UNRECOGNIZED DRUG - OTHER] IV SCH ×2 (00:28→10:33)
[2019-03-25] MEDS: 0.9 % SODIUM CHLORIDE 10 ML SYRINGE IV SCH ×3 (06:00→23:26)
[2019-03-25 06:14] LABS: Basophils # (Auto) 0.1 K/mcL (0.0-0.3); Basophils % (Auto) 0.4 % (0.0-2.0); Eosinophils # (Auto) 0 K/mcL (0.0-0.7); Eosinophils % (Auto) 0.3 % (0.0-7.0); Granulocytes % (Auto) 64.9 % (38.0-78.0); Hematocrit 28.9 % (41.0-55.0); Hemoglobin 9.8 g/dL (13.5-16.5); Lymphocytes # (Auto) 3.5 K/mcL (1.5-4.8); Lymphocytes % (Auto) 24.3 % (15.5-49.0); Mean Cell Volume 89.2 fL (80.0-100.0); Mean Corpuscular HGB Conc 33.9 g/dL (31.0-36.0); Mean Platelet Volume 8.9 fL (7.4-10.4); Monocytes # (Auto) 1.4 K/mcL (0.1-0.9); Monocytes % (Auto) 10.1 % (1.0-12.0); Platelet Count 292 K/mcL (140-440); RBC 3.24 M/mcL (4.50-5.90); Red Cell Distribution Width 12.9 % (11.5-14.5); WBC 14.3 K/mcL (4.5-11.0)
[2019-03-25 06:16] LABS: ALT/SGPT 15 U/l (0-40); AST/SGOT 14 U/l (0-37); Albumin 3.1 gm/dL (3.2-5.2); Albumin/Globulin Ratio 1.1 (1.0-2.3); Alkaline Phosphatase 101 U/L (39-117); Bilirubin,Direct < 0.2 mg/dL (0.0-0.3); Bilirubin,Total 0.2 mg/dL (0.0-1.0); Blood Urea Nitrogen 35 mg/dl (6-20); Carbon Dioxide 37 mmol/L (22-30); Chloride 90 mmol/L (96-108); Globulin 2.8 gm/dL (2.2-3.7); Glomerular Filtration Rate 29; Glucose 232 mg/dL (70-105); Lactate Dehydrogenase 173 U/L (94-250); Phosphorous 3.7 mg/dL (2.7-4.5); Triglycerides 88 mg/dl (<150); Uric Acid 7.6 mg/dL (2.5-8.0)
[2019-03-25] MEDS ORDERED: DEXTROSE 5%-NS W/20MEQ KCL 1,000 ML IV SCH (07:15)
[2019-03-25] MEDS ORDERED: cloNIDine TTS 1 1 PATCH PATCH TD SCH ×2 (07:30→11:15)
--- NOTE | 2019-03-25 08:38 | Internal Med Progress Note ---
Medical - PN: Subj Patient information: Note initiated : 03/25/19 at 8:36 am Service Date, if different from initiated Date: [] Patient: Mauri Levine a 33 y/o M admitted on 03/24/19 for N/v. Chief Complaint: [] Interval history: Mr. Levine is a 33 year old M Who gets admitted every once a while for hyperglycemia gastroparesis. She follows [facility]. He is on erythromycin at home has been intolerant to Reglan. States he wakes up every morning and vomits. This been going on for at least a year. Occasionally the nausea vomiting will become severe enough to where he becomes dehydrated and is sugars become abnormal and comes into the hospital. There is a morning woke up and vomited and then continued on through the next couple days. Is been able to keep anything down. In the ER his creatinine was up from baseline his chloride is severely down his osmolality was high at 338 his lactate was 3.3. Is mildly tachycardic blood pressures were low 1 teens when he came in but did have some 88's later on improved with the fluid. Patient denies any recent illnesses or malfunctioning insulin pump. Denies any dietary indiscretions. 9/8 Feeling much better. No emesis overnight nausea much improved. Creatinine same as last night. No overnight events or new complaints. Review of Systems: denies headache/fever/chills/chest or abdominal pain/cough/dyspnea/diarrhea. Otherwise see above. - Constitutional Vitals: Vital Signs Temp Pulse Resp BP Pulse Ox 99.2 F H 100 H 16 122/67 96 03/25/19 08:01 03/25/19 05:01 03/25/19 04:02 03/25/19 08:01 03/25/19 05:01 Period Temp Pulse Resp BP Sys/Menard Pulse Ox Last 24 Hr 99.2 F-99.3 F 55-119 13-25 84-180/45-100 96-100 Intake and Output 03/24/19 03/25/19 03/25/19 21:59 05:59 13:59 Intake Total 1000 2223 2009 Output Total 150 Balance 1000 2073 2009 Weight 63.503 kg 63.82 kg Intake & Output: Intake & Output 03/24/19 03/25/19 03/25/19 21:59 05:59 13:59 Intake Total 1000 4 2009 Output Total 150 Balance 1000 2073 2009 Weight 63.503 kg 63.82 kg Intake: IV 1000 1024 2009 Sodium Chloride 0.9% 1,000 ml @ 0 Wide Open IV .Q0M ONE Rx#: [id number] HumuLIN R 50 UNIT In Sodium 1 Chloride 0.9% 99.5 ml @ 0.5 UNIT/HR 1 mls/hr IV CONT [facility] Rx #:[id number] Lactated Ringers 1,000 ml @ 1000 1000 Wide Open IV .Q0M ONE Rx#: [id number] Potassium Chloride 20 Meq In 1010 Dextrose 5%-Ns IV Solution 1, 000 ml @ 150 mls/hr IV .Q6H44M [facility] Rx#:[id number] Oral 1200 Output: Void Amount 0 Emesis 150 Exam: General: Alert, Awake, No acute Distress Eyes/N/T: EOMI, Head/Neck: neck supple, CV: RRR, No murmurs, Pulm: Clear b/l, no wheezing/rhonchi/rales Abd: soft, nontender, +BS x4 Ext: no clubbing/cyanosis/edema Neuro: Alert, no focal deficits, moves all extremities, Skin: warm/dry Medical - PN: Obj Da - Labs CBC & Chem 7: 03/25/19 04:00 03/25/19 04:00 Labs: Abnormal Lab Results 03/25/19 03/25/19 03/24/19 04:00 04:00 23:33 WBC 14.3 H RBC 3.24 L Hgb 9.8 L Hct 28.9 L Gran % Lymph % (Auto) Gran # 9.3 H Lymph # (Auto) [place] # (Auto) 1.4 H VBG Lactic Acid Chloride 90 L 87 L Carbon Dioxide 37 H 39 H Anion Gap BUN 35 H Creatinine 2.8 H Glucose 232 H Hemoglobin A1c Osmolality 306 H Calcium 8.0 L Magnesium Alkaline Phosphatase Total Protein Albumin 3.1 L Globulin 03/24/19 03/24/19 03/24/19 23:33 18:08 18:08 WBC RBC Hgb Hct Gran % Lymph % (Auto) Gran # Lymph # (Auto) [place] # (Auto) VBG Lactic Acid 3.3 H Chloride Carbon Dioxide Anion Gap BUN Creatinine Glucose Hemoglobin A1c 10.6 H Osmolality 338 H Calcium Magnesium Alkaline Phosphatase Total Protein Albumin Globulin 03/24/19 03/24/19 18:08 18:08 WBC RBC Hgb 13.4 L Hct 40.1 L Gran % 88.8 H Lymph % (Auto) 7.9 L Gran # 9.6 H Lymph # (Auto) 0.9 L [place] # (Auto) VBG Lactic Acid Chloride 73 L Carbon Dioxide Anion Gap 32.0 H BUN 37 H Creatinine 2.8 H Glucose 590 H* Hemoglobin A1c Osmolality Calcium Magnesium 3.0 H Alkaline Phosphatase 155 H Total Protein 8.7 H Albumin Globulin 4.2 H Meds: Medications Acetaminophen (Tylenol) 650 mg PO Q6HP PRN PRN Reason: PAIN/FEVER > 101 Albuterol/Ipratropium (Duoneb) 3 ml NEB Q4HP PRN PRN Reason: Shortness Of Breath Clonidine HCl (Catapres Tts 1) 1 patch TD WEEKLY [facility] Last Admin: 03/25/19 08:18 Dose: 1 patch Documented by: Diagnostic Test (Pha) (Accu-Chek) 1 each FS Q1 [facility] Last Admin: 03/25/19 08:00 Dose: 1 each Documented by: Diphenhydramine HCl (Benadryl) 25 mg IV Q4-6HP PRN PRN Reason: Allergic Symptoms/NAUSEA Enoxaparin Sodium (Lovenox) 30 mg SQ DAILY [facility] Famotidine (Pepcid) 20 mg IV Q12 [facility] Hydralazine HCl (Apresoline) 10 - 20 mg IV Q2HP PRN PRN Reason: Hypertension Insulin Human Regular 50 unit/ (Sodium Chloride) 100 mls @ 1 mls/hr IV CONT [facility]; Protocol Potassium Chloride 40 meq/ (Dextrose) 520 mls @ 130 mls/hr IV UD PRN PRN Reason: Potassium < 3 Magnesium Sulfate (Magnesium Sulfate) 2 gm in 50 mls @ 50 mls/hr IV UD PRN PRN Reason: Magnesium </= 1.6 Potassium Chloride/Dextrose/Sod Cl (Dextrose 5%-Ns W/20meq Kcl) 1,000 mls @ 150 mls/hr IV .Q6H40M [facility] Stop: 03/25/19 20:34 Last Admin: 03/25/19 07:39 Dose: 150 mls/hr Documented by: Lorazepam (Ativan) 0.5 mg IV Q4HP PRN PRN Reason: Anxiety/Sedation/nausea Ondansetron HCl (Zofran) 4 mg IV Q4HP PRN PRN Reason: Nausea And Vomiting Ondansetron HCl (Zofran Odt) 4 mg SL Q4HP PRN PRN Reason: Nausea And Vomiting Polyethylene Glycol (Miralax) 17 gm PO DAILYP PRN PRN Reason: Constipation Potassium Chloride (Kdur) 40 meq PO UD PRN PRN Reason: Potssium is 3-3.5 Potassium Chloride (Kdur) 40 meq PO UD PRN PRN Reason: Potassium < 3 Prochlorperazine (Compazine) 10 mg IV Q6HP PRN PRN Reason: Nausea And Vomiting Promethazine HCl (Phenergan) 12.5 mg MD Q6HP PRN PRN Reason: Pain Sodium Chloride (Saline Flush) 10 ml IV Q8 [facility] Last Admin: 03/25/19 06:00 Dose: Not Given Documented by: Medical - PN: A/P - Time Spent With Patient Total time spent is greater than 50% in coordination of care (as documented) at patient's floor/unit and/or counseling patient: - Narrative A/P Narrative: A: *HHS with h/o DM I (A1c 10.6): uncontrolled DM, HHS improved *Diabetic gastroparesis with N/V: improved *Lactic acidosis: resolved *Hypovolemia: improving *ROSALIO on CKD III (?baseline, new): is supposed to see nephrology outpt *Neuropathy: On gabapentin *HTN: On monitoring patch and lisinopril low-dose *Anxiety/depression: On Ativan and venlafaxine *GERD: * P: -Insulin gtt to home pump -IV fluids -Monitor electrolytes -Ice chips if patient is tolerant and advance diet as able -Antiemetics -hold ACEI for ROSALIO -renal u/s -f/u with nephrology outpt -needs further adjustment home insulin -DM educator -ppx: Lovenox/H2
[2019-03-25] MEDS: FAMOTIDINE/PF 20 MG/2 ML VIAL IV SCH ×2 (10:13→23:21)
[2019-03-25] MEDS: ENOXAPARIN 30 MG/0.3 ML SYRINGE SQ SCH (10:13)
[2019-03-25 10:45] LABS: Amphetamine Screen,Urine NONE DETECTED (NONDETECTED); Barbiturate Screen,Urine NONE DETECTED (NONDETECTED); Benzodiazepines Screen,Urine NONE DETECTED (NONDETECTED); Cannabinoid Screen,Urine SUSPECT POSITIVE (NONDETECTED); Cocaine Screen,Urine NONE DETECTED (NONDETECTED); Opiate Screen,Urine NONE DETECTED (NONDETECTED); Oxycodone, Urine Screen NONE DETECTED (NONDETECTED); Phencyclidine Screen,Urine NONE DETECTED (NONDETECTED)
[2019-03-25] MEDS ORDERED: NON FORMULARY MEDICATION 1 DOSE MISCELL (Glucagon,Human Recombinant [Glucagon Emergency Ki IM PRN (10:54)
[2019-03-25] MEDS ORDERED: LORazepam 0.5 MG TABLET PO PRN (10:54)
[2019-03-25] MEDS ORDERED: ONDANSETRON 4 MG ODT TABLET PO PRN (11:00)
[2019-03-25 11:43] LABS: Appearance,Urine CLEAR; Bacteria,Urine 0 /hpf (0); Bilirubin,Urine NEG (NEG); Color,Urine YELLOW; Culture Indicated,Urine NO; Glucose,Urine (UA) >=500 mg/dL (NEG); Ketones,Urine 5/TR mg/dL (NEG); Leukocyte Esterase,Urine NEG /uL (NEG); Mucus,Urine FEW /hpf (0); Nitrate,Urine NEG (NEG); Protein,Urine >=500 mg/dL (NEG); Specific Gravity,Urine 1.013 (1.000-1.035); Urine Blood NEG mg/dL (<0.03); Urine Hyaline Cast 38 /lpf (0-2); Urine RBC < 1 /hpf (0-1); Urine Squamous Epithelial Cell < 1 /hpf (0-4); Urine WBC 2 /hpf (0-4); Urobilinogen,Urine NEG (NEG)
[2019-03-25] MEDS ORDERED: 0.9 % SODIUM CHLORIDE 1,000 ML IV SCH ×2 (11:45→20:00)
[2019-03-25] MEDS: ERYTHROMYCIN BASE 250 MG TABLET PO SCH ×2 (13:26→17:55)
--- NOTE | 2019-03-25 14:16 | Ultrasound Report ---
CLINICAL INFORMATION: ROSALIO COMPARISON: Abdomen and pelvic CT 12/24/2018 FINDINGS: Both kidneys are normal and symmetric in size, position and configuration: The right is 10.7 x 5 and the left is 10.6 x 5 cm. Echotexture is mildly elevated in the renal parenchyma suggesting medical renal disease. There is no stone mass, cyst or other focal renal lesions. Arterial blood flow is grossly normal in both kidneys Urinary bladder volume is 92 cc and the patient voided to completion. The prostate is upper limits of normal in size - 27 cc IMPRESSION: Mild hyperechoic kidneys compatible with medical renal disease. Interpreted and Authenticated by: Demetrius Smart 03/25/19
[2019-03-25] MEDS: GABAPENTIN 300 MG CAPSULE PO SCH ×2 (14:54→23:22)
[2019-03-25] MEDS ORDERED: KETAMINE SL PRN (17:23)
[2019-03-25] MEDS ORDERED: INSULIN REGULAR, HUMAN 50 UNIT in 0.9 % SODIUM CHLORIDE 99.5 ML IV PRN (18:45)
[2019-03-25] MEDS ORDERED: ATORVASTATIN 20 MG TABLET PO SCH (21:00)
[2019-03-25] MEDS ORDERED: MELATONIN 3 MG TABLET PO SCH (21:00)
[2019-03-25] MEDS ORDERED: LISINOPRIL 10 MG TABLET PO SCH (21:00)
[2019-03-26] MEDS: 0.9 % SODIUM CHLORIDE 10 ML SYRINGE IV SCH (05:10)
[2019-03-26 06:37] LABS: Hematocrit 26.4 % (41.0-55.0); Hemoglobin 8.9 g/dL (13.5-16.5); Mean Cell Volume 90.2 fL (80.0-100.0); Mean Corpuscular HGB Conc 33.6 g/dL (31.0-36.0); Mean Platelet Volume 8.6 fL (7.4-10.4); Platelet Count 225 K/mcL (140-440); RBC 2.93 M/mcL (4.50-5.90); Red Cell Distribution Width 12.9 % (11.5-14.5); WBC 8.1 K/mcL (4.5-11.0)
[2019-03-26 06:54] LABS: ALT/SGPT 15 U/l (0-40); AST/SGOT 17 U/l (0-37); Albumin 2.9 gm/dL (3.2-5.2); Albumin/Globulin Ratio 1.1 (1.0-2.3); Alkaline Phosphatase 81 U/L (39-117); Bilirubin,Direct < 0.2 mg/dL (0.0-0.3); Bilirubin,Total 0.2 mg/dL (0.0-1.0); Blood Urea Nitrogen 21 mg/dl (6-20); Calcium 8.4 mg/dl (8.6-10.4); Carbon Dioxide 32 mmol/L (22-30); Chloride 99 mmol/L (96-108); Globulin 2.6 gm/dL (2.2-3.7); Glomerular Filtration Rate 40; Glucose 69 mg/dL (70-105); Lactate Dehydrogenase 152 U/L (94-250); Phosphorous 3.4 mg/dL (2.7-4.5); Triglycerides 80 mg/dl (<150); Uric Acid 6.1 mg/dL (2.5-8.0)
--- NOTE | 2019-03-26 07:38 | Discharge Summary ---
Medical - DS: Prov Patient information: Note initiated : 03/26/19 at 7:36 am Service Date, if different from initiated Date: [] Patient: Mauri Levine 33 y/o M admitted on 03/24/19 for N/v. Chief Complaint: [] Date of admission: 03/24/19 23:10 Discharge date: 03/26/19 Primary care physician: Alexia Crouch Consults: 03/24/19 Consult to Physician [CONS] Stat Comment: Consulting Provider: Deangelo Basilio Reason For Exam: Physician to Consult Medical - DS: Meds - Discharge Medications Active and Home Medications: Home Medications insulin syringe U-100 with needle 1/2 mL 31 gauge x 15/64" See Dose Instructions .ROUTE .MEDSUPPLY 03/27/15 [History Confirmed 03/25/19 Last Taken Unknown] glucagon (human recombinant) 1 mg injection kit 1 mg IM ONCE PRN #7 each 10/02/15 [Rx Confirmed 03/25/19 Last Taken Unknown] insulin lispro (U- 100) 100 unit/mL subcutaneous solution See Rx Instructions SUB-Q QDAY #10 ml 04/20/17 [Rx Confirmed 03/25/19 Last Taken 02/16/19 07:00] ondansetron 4 mg disintegrating tablet 4 mg PO Q6H #20 tab 08/12/17 [Rx Confirmed 03/25/19 Last Taken 02/20/19 20:00] Gabapentin [Neurontin] 600 mg PO TID 12/24/18 [History Confirmed 03/25/19 Last Taken 02/20/19 20:00] LORazepam [Ativan] 0.5 mg PO TID PRN 12/24/18 [History Confirmed 03/25/19 Last Taken 02/20/19 20:00] Lisinopril [Zestril] 10 mg PO HS 12/24/18 [History Confirmed 03/25/19 Last Taken 02/20/19 20:00] Atorvastatin [Lipitor] 40 mg PO HS 02/13/19 [History Confirmed 03/25/19 Last Taken 02/20/19 22:00] Blood Sugar Diagnostic [Assure Prism Multi] 0 each .ROUTE .MEDSUPPLY MDD 4 02/13/19 [History Confirmed 03/25/19 Last Taken Unknown] Blood-Glucose Meter [Contour] 0 each .ROUTE .MEDSUPPLY 02/13/19 [History Confirmed 03/25/19 Last Taken Unknown] Diabetic Shoes 1 each .ROUTE DAILY 02/13/19 [History Confirmed 03/25/19 Last Taken Unknown] Melatonin 10 mg PO HS 02/13/19 [History Confirmed 03/25/19 Last Taken 02/20/19 20:00] Ranitidine HCl [Zantac] 150 mg PO BID 02/13/19 [History Confirmed 03/25/19 Last Taken 02/20/19 20:00] Sildenafil Citrate [Viagra] 100 mg PO DAILY PRN 02/13/19 [History Confirmed 03/25/19 Last Taken Unknown] cloNIDine [Catapres-Tts 1] 1 patch TOPICAL WEEKLY 02/13/19 [History Confirmed 03/25/19 Last Taken 02/19/19 20:00] Erythromycin Base [Erythromycin] 250 mg PO TID 02/16/19 [History Confirmed 03/25/19 Last Taken 02/20/19 08:00] Venlafaxine HCl [Venlafaxine HCl ER] 150 mg PO DAILY 02/21/19 [History Confirmed 03/25/19 Last Taken 02/20/19 20:00] Ketamine 30 mg PO Q6HP PRN 03/25/19 [History Confirmed 03/25/19 Last Taken Unknown] Medical - DS: Hosp Hospital Course: Mr. Levine is a 33 year old M Who gets admitted every once a while for hyperglycemia gastroparesis. She follows [facility]. He is on erythromycin at home has been intolerant to Reglan. States he wakes up every morning and vomits. This been going on for at least a year. Occasionally the nausea vomiting will become severe enough to where he becomes dehydrated and is sugars become abnormal and comes into the hospital. There is a morning woke up and vomited and then continued on through the next couple days. Is been able to keep anything down. In the ER his creatinine was up from baseline his chloride is severely down his osmolality was high at 338 his lactate was 3.3. Is mildly tachycardic blood pressures were low 1 teens when he came in but did have some 88's later on improved with the fluid. Patient denies any recent illnesses or malfunctioning insulin pump. Denies any dietary indiscretions. 9/8 Feeling much better. No emesis overnight nausea much improved. Creatinine same as last night. No overnight events or new complaints. 03/26 Patient doing well. Renal function improving. Blood glucose stable on insulin pump. Stable for discharge Needs further adjustment of his insulin regimen given his elevated A1c, by PCP or test man. And he needs to follow-up with nephrology, I reminded him. *HHS with h/o DM I (A1c 10.6): uncontrolled DM, HHS improved *Diabetic gastroparesis with N/V: improved *Lactic acidosis: resolved *ROSALIO on CKD III (?baseline, new): is supposed to see nephrology outpt *Neuropathy: On gabapentin *HTN: On monitoring patch and lisinopril low-dose *Anxiety/depression: On Ativan and venlafaxine *GERD: * Discharge diagnosis: DKA gastroparesis lactic acidosis acute kidney injury Secondary discharge diagnosis: Neuropathy hypertension anxiety depression GERD - Time Spent with Patient Total time spent providing and/or coordinating discharge services: Greater than 30 minutes Medical - DS: Exam - Constitutional Vitals: Vital Signs Temp Pulse Resp BP BP Pulse Ox 03/26/19 03:50 99.4 F H 16 98/70 97 03/25/19 23:53 98.1 F 16 147/85 99 03/25/19 23:01 147/85 03/25/19 23:00 98.5 F 86 18 147/85 100 03/25/19 22:01 16 142/87 03/25/19 21:02 98.8 F 16 137/84 97 03/25/19 20:01 16 138/77 03/25/19 19:01 145/81 03/25/19 19:00 98.0 F 98 H 18 145/81 97 03/25/19 18:02 169/100 03/25/19 17:01 96/63 03/25/19 16:01 107/62 03/25/19 15:01 99.1 F H 124/73 03/25/19 14:01 98.7 F 128/77 03/25/19 13:01 139/91 03/25/19 12:01 128/83 03/25/19 11:01 130/76 03/25/19 10:01 127/79 03/25/19 09:01 110/69 03/25/19 08:01 99.2 F H 122/67 Intake and Output 03/25/19 03/26/19 03/26/19 21:59 05:59 13:59 Intake Total 1574 Output Total 850 Balance 724 Intake: IV 24 HumuLIN R 50 UNIT In Sodium 24 Chloride 0.9% 99.5 ml @ 0.5 UNIT/HR 1 mls/hr IV CONT KOKO Rx #:[id number] Oral 1550 Output: Void Amount 850 Other: Meal Dinner Percent of Meal Consumed 50% Urine Appearance Clear Urine Color Pale Weight 70.08 kg Medical - DS: Data Labs on day of discharge: Labs from last 24 hours 03/26/19 03/26/19 03/25/19 04:20 04:20 09:09 WBC 8.1 RBC 2.93 L Hgb 8.9 L Hct 26.4 L MCV 90.2 MCH 30.3 MCHC 33.6 RDW 12.9 Plt Count 225 MPV 8.6 Total Counted Pending Band Neutrophils % Not Reportable Platelet Estimate Pending RBC Morphology Pending Sodium 139 Potassium 3.4 Chloride 99 Carbon Dioxide 32 H Anion Gap 8.0 BUN 21 H Creatinine 2.1 H GFR Calculation 40 Glucose 69 L Uric Acid 6.1 Calcium 8.4 L Phosphorus 3.4 Magnesium 2.1 Total Bilirubin 0.2 Direct Bilirubin < 0.2 GGT 16 AST 17 ALT 15 Alkaline Phosphatase 81 Lactate Dehydrogenase 152 Total Protein 5.5 L Albumin 2.9 L Globulin 2.6 Albumin/Globulin Ratio 1.1 Triglycerides 80 Urine Color Yellow Urine Appearance Clear Urine pH 7.0 Ur Specific Alliance 1.013 Urine Protein >=500 A Urine Glucose (UA) >=500 A Urine Ketones 5/tr A Urine Occult Blood Neg Urine Nitrate Neg Urine Bilirubin Neg Urine Urobilinogen Neg Ur Leukocyte Esterase Neg Urine RBC < 1 Urine WBC 2 Ur Squamous Epith Cells < 1 Urine Bacteria 0 Hyaline Casts 38 H Urine Mucus Few Ur Culture Indicated? No Urine Opiates Screen Ur Oxycodone Screen Urine Methadone Screen Ur Barbiturates Screen Ur Phencyclidine Scrn Ur Amphetamines Screen U Benzodiazepines Scrn Urine Cocaine Screen U Marijuana (THC) Screen 03/24/19 09:09 WBC RBC Hgb Hct MCV MCH MCHC RDW Plt Count MPV Total Counted Band Neutrophils % Platelet Estimate RBC Morphology Sodium Potassium Chloride Carbon Dioxide Anion Gap BUN Creatinine GFR Calculation Glucose Uric Acid Calcium Phosphorus Magnesium Total Bilirubin Direct Bilirubin GGT AST ALT Alkaline Phosphatase Lactate Dehydrogenase Total Protein Albumin Globulin Albumin/Globulin Ratio Triglycerides Urine Color Urine Appearance Urine pH Ur Specific Alliance Urine Protein Urine Glucose (UA) Urine Ketones Urine Occult Blood Urine Nitrate Urine Bilirubin Urine Urobilinogen Ur Leukocyte Esterase Urine RBC Urine WBC Ur Squamous Epith Cells Urine Bacteria Hyaline Casts Urine Mucus Ur Culture Indicated? Urine Opiates Screen None detected Ur Oxycodone Screen None detected Urine Methadone Screen None detected Ur Barbiturates Screen None detected Ur Phencyclidine Scrn None detected Ur Amphetamines Screen None detected U Benzodiazepines Scrn None detected Urine Cocaine Screen None detected U Marijuana (THC) Screen Suspect positive A Medical - DS: A/P - Patient/Caregiver Discharge Instructions Activity: increase activity as tolerated Diet: Consistent Carbohydrate Additional Instructions: Follow-up with nephrology 5 to 10 days - Follow up Plan Follow up with: Alexia Crouch ARNP [Primary Care Provider] - Disposition: Home, Self-Care Prognosis: Fair Rehab Potential: Fair Overall status at discharge: patient is back to baseline Medical - DS: Qual - VTE Deep Vein Thrombosis/Pulmonary Embolism Present on Admission: No
[2019-03-26] MEDS: ERYTHROMYCIN BASE 250 MG TABLET PO SCH (07:39)
[2019-03-26 07:52] LABS: Eosinophils % (Manual) 2 % (0-7); Hypochromasia FEW (NONE SEEN); Lymphocytes % 34 % (15-49); Monocytes % (Manual) 7 % (1-12); Platelet Estimate NORMAL (NORMAL); RBC Morphology ABNORM (NORMAL); Reactive Lymphocytes 2 % (0-2); Segmented Neutrophils % 55 % (38-78)
[2019-03-26] MEDS ORDERED: VENLAFAXINE 150 MG CAP.XL.24H PO SCH (09:00)
[2019-03-26] MEDS: FAMOTIDINE/PF 20 MG/2 ML VIAL IV SCH (09:19)
[2019-03-26] MEDS: GABAPENTIN 300 MG CAPSULE PO SCH (09:19)
[2019-03-26] MEDS: ENOXAPARIN 30 MG/0.3 ML SYRINGE SQ SCH (09:19)
[2019-03-30 12:21] LABS: Cannabinoid Confirmation POSITIVE (N)
== END 2019-03-26 10:09 | disposition home or self-care (01) | DRG 638 ==
LOC: ED 17:28 → ICU 23:10
PROVIDERS: ADMIT Internal Medicine; ATTEND Internal Medicine

== ENCOUNTER 2021-01-10 08:21 | Inpatient (IN) ==
[2021-01-10] MEDS ORDERED: 0.9 % SODIUM CHLORIDE 1,000 ML IV ONE (08:28)
--- NOTE | 2021-01-10 08:54 | Emergency Department Note ---
HPI General Chief complaint: Blood Sugar Problem Stated complaint: dka Time Seen by Provider: 01/10/21 08:28 Source: patient Mode of arrival: ambulatory Limitations: no limitations History of Present Illness HPI Narrative: Narrative: Patient presents emergency department for 2-day history of elevated blood sugar into the 250s. This morning is higher. He is also a 2-day history of vomiting. He has a history of diabetes, DKA, gastroparesis. Denies abdominal pain. No fever. Brought to the emergency department via EMS. Received Zofran prehospital. No other complaints. Related Data Home Medications Medication Instructions Recorded Confirmed insulin syringe-needle U-100 /03/27/15 03/25/19 mL 31 gauge x 15/64" gabapentin 600 mg PO TID 12/24/18 04/04/19 lorazepam 1 mg PO TID PRN 12/24/18 01/10/21 Diabetic Shoes 1 each .ROUTE DAILY 02/13/19 03/25/19 atorvastatin 40 mg PO HS 02/13/19 01/10/21 blood sugar diagnostic 02/13/19 03/25/19 blood-glucose meter 02/13/19 03/25/19 clonidine 1 patch TOPICAL WEEKLY 02/13/19 01/10/21 melatonin 10 mg PO HS 02/13/19 04/04/19 ranitidine HCl 150 mg PO BID 02/13/19 04/04/19 sildenafil 100 mg PO DAILY PRN 02/13/19 04/04/19 erythromycin 250 mg PO TID 02/16/19 04/04/19 venlafaxine 150 mg PO DAILY 02/21/19 04/04/19 Ketamine 30 mg PO Q6HP PRN 03/25/19 04/04/19 aluminum-mag hydroxide-simethicone 10 ml PO TID PRN 04/04/19 04/04/19 400 mg-400 mg-40 mg/5 mL oral susp insulin glargine 100 unit/mL (3 10 unit SUB-Q QDAY PRN 04/04/19 04/04/19 mL) subcutaneous pen multivitamin,[id number]-[id number]-[id number] 1 tab PO QDAY 04/04/19 04/04/19 nortriptyline 10 mg capsule 10 mg PO QHS 04/04/19 04/04/19 promethazine 12.5 mg rectal 12.5 mg [place] Q6H PRN 04/04/19 04/04/19 suppository rizatriptan 10 mg tablet 10 mg PO ONCE 04/04/19 04/04/19 sennosides 8.6 mg tablet 8.6 mg PO QHS tab 04/04/19 04/04/19 sucralfate 1 gram tablet 1 g PO Q6H PRN tab 04/04/19 04/04/19 carvedilol 3.125 mg PO BID 01/10/21 01/10/21 ondansetron HCl 4 mg IV PRN PRN 01/10/21 01/10/21 Previous Rx's Medication Instructions Recorded glucagon (human recombinant) 1 mg 1 mg IM ONCE PRN #7 each 10/02/15 injection kit insulin lispro 100 unit/mL See Rx Instructions SUB-Q QDAY #10 04/20/17 subcutaneous solution ml ondansetron 4 mg disintegrating 4 mg PO Q6H #20 tab 08/12/17 tablet captopril 12.5 mg tablet 6.25 mg PO BID #90 tab 04/09/19 ondansetron 4 mg SL Q4-6HP PRN #10 tab 12/30/19 Allergies Allergy/AdvReac Type Severity Reaction Status Date / Time silver Allergy Mild Rash Verified 12/30/19 04:18 metoclopramide [From Reglan] AdvReac Mild Agitated Verified 12/30/19 04:18 prochlorperazine AdvReac Mild "My whole Verified 12/30/19 04:18 [From Compazine] body freaks out." Review of Systems ROS ROS Narrative: Narrative: As above, all other systems reviewed and negative. [facility] Narrative Patient History Narrative: Narrative: Reviewed Medical/Surgical/Family History All Active Problems (Updated 01/10/21 @ 11:56 by Rishabh Siddiqui MD) Dehydration (Acute) Hyperglycemia (Acute) Hypercarbia (Acute) Diabetic hyperosmolar non-ketotic state (Acute) Drug-induced nausea and vomiting (Acute) Diabetic gastroparesis (Acute) Hyperosmolar hyperglycemic state (HHS) (Acute) Type 1 diabetes mellitus with stage 3 chronic kidney disease and hypertension (Chronic) Cyclic vomiting syndrome (Chronic) Uncontrolled type 1 diabetes mellitus with diabetic nephropathy, with long-term current use of insulin (Chronic) History of neuroleptic malignant syndrome (Chronic) Peripheral autonomic neuropathy due to DM (Chronic) Diabetic peripheral neuropathy (Chronic) Hyperlipidemia (Chronic) Hypertension, essential (Chronic) Diabetes mellitus type I (Chronic) Other hammer toe(s) (acquired), left foot (Chronic) Esophageal candidiasis (Chronic) GERD (gastroesophageal reflux disease) (Chronic) Nausea and vomiting (Chronic) Abdominal pain, epigastric (Chronic) Gastroparesis due to DM (Chronic) Testosterone deficiency (Chronic) Medical History (Updated 01/10/21 @ 11:56 by Rishabh Siddiqui MD) Abdominal pain, epigastric Chronic ulcer of left foot Coffee ground emesis Diabetes mellitus type I Age 12, With foot ulcer Diabetic peripheral neuropathy DKA, type 1 Esophageal candidiasis Gastroparesis due to DM GERD (gastroesophageal reflux disease) Hallux valgus (acquired), left foot History of neuroleptic malignant syndrome to compazine (prochlorperazine) Hyperlipidemia Hypertension, essential Hypokalemia Connie-[place]rne tear Nausea and vomiting Non-pressure chronic ulcer of other part of left foot limited to breakdown of skin Other hammer toe(s) (acquired), left foot Peripheral autonomic neuropathy due to DM Sepsis Tardive dyskinesia due to metoclopramide (Reglan) Testosterone deficiency Surgical History History of toe surgery left hallux Family History Mother Atrial fibrillation Essential hypertension Sister Malignant neoplasm of female breast Maternal Grandfather Malignant neoplasm of colon Recorded 11/12/10 Father Essential hypertension Other DKA, type 1 Social History Smoking Status: Former smoker Alcohol Intake Frequency: a few times a month Substance Use: marijuana Exam Narrative Narrative: Narrative: Vital signs: Blood pressure 156/106, pulse 100, respirations 18, O2 saturation charted at 88% on room air, up to 94% on the monitor with good Plath wave. General Limitations: no limitations Head Head: Present atraumatic and normocephalic Eye Eye: Present normal appearance and PERRL ENT ENT: Present normal exam and mucous membranes moist Neck Neck: Present normal inspection Respiratory Respiratory: Absent respiratory distress Adbominal Abdominal: Present soft; Absent distention, tenderness, guarding and rebound Extremities Extremities: Present normal inspection Neurological Neurological: Present alert, oriented X3 and CN II-XII intact; Absent motor sensory deficit Psychiatric Psychiatric: Present normal affect and normal mood Skin Skin: Present warm (WNL) and dry Course Vital Signs Vital signs: Vital Signs Pulse Rate 103 H 01/10/21 08:34 Respiratory Rate 18 01/10/21 08:34 Blood Pressure 156/106 01/10/21 08:34 Pulse Oximetry (%) 99 01/10/21 08:34 Pulse Rate 103 H 01/10/21 13:30 Respiratory Rate 28 H 01/10/21 14:00 Blood Pressure 168/79 01/10/21 14:00 Pulse Oximetry (%) 94 01/10/21 13:30 MDM MDM Narrative Medical decision making narrative: Narrative:Patient side with IV fluids, medicated with Zofran. He complained of heartburn and was given GI cocktail. EKG showed sinus tachycardia, minimal ST depression in the lateral leads he had an EKG in 2019 that looks somewhat similar but little more pronounced today, prolonged QTC. Patient is given insulin bolus and drip. I spoke with on-call hospitalist. Case reviewed in detail. Hospitalist agrees with admission. Troponin is added based on EKG result. Discussed findings with the patient. His questions are answered. He is agreeable with the plan. Chest x-ray showed no acute cardiopulmonary pathology. Lab Data Result diagrams: 01/10/21 08:54 01/10/21 12:18 Labs: Lab Results 01/10/21 01/10/21 01/10/21 Range/Units 08:54 08:54 08:54 WBC 13.8 H (4.5-11.0) K/mcL RBC 4.23 L (4.50-5.90) M/mcL Hgb 12.2 L (13.5-16.5) g/dL Hct 38.3 L (41.0-55.0) % POC Hct 41 (41-55) % MCV 90.5 (80.0-100.0) fL MCH 28.8 (26.0-34.0) pg MCHC 31.9 (31.0-36.0) g/dL RDW 13.6 (11.5-14.5) % Plt Count 163 (140-440) K/mcL MPV 12.5 H (7.4-10.4) fL Neut % (Auto) 92.3 H (38.0-78.0) % Lymph % (Auto) 3.3 L (15.0-49.0) % [place] % (Auto) 3.8 (1.0-12.0) % Eos % (Auto) 0 (0.0-7.0) % Baso % (Auto) 0.6 (0.0-2.0) % Lymph # (Auto) 0.46 L (1.50-4.80) K/mcL [place] # (Auto) 0.52 (0.10-0.90) K/mcL Eos # (Auto) 0 (0.00-0.70) K/mcL Baso # (Auto) 0.08 (0.00-0.20) K/mcL Absolute Neutrophils 12.70 H (1.80-8.00) K/mcL ABG Methemoglobin 0.3 L (0.4-1.5) % VBG pH 7.45 H (7.32-7.42) U VBG pCO2 44.1 (41.0-51.0) mmHg VBG pO2 83.1 H (25.0-40.0) mmHg VBG HCO3 29.6 H (24.0-28.0) mmol/L VBG Total CO2 31.0 H (25.0-29.0) mmol/L VBG O2 Saturation 91.6 H (40.0-70.0) % VBG Base Excess 5 H (-2-3) Carboxyhemoglobin 4.8 H (0.0-1.5) % THgb Total Hemoglobin 12.1 L (13.5-16.5) gm/Dl POC Sodium 136 (133-145) mEq/L Sodium 138 (133-145) mmol/L POC Potassium 3.3 (3.3-5.1) mEql/L Potassium 3.5 (3.3-5.1) mmol/L POC Chloride 87 L (96-108) mEq/L Chloride 83 L (96-108) mmol/L Carbon Dioxide 26 (22-30) mmol/L POC Total CO2 30 (22-30) mmol/L Anion Gap 29.0 H (8.0-16.0) POC BUN 35 H (6-20) mg/dL BUN 33 H (6-20) mg/dL Creatinine 2.4 H (0.7-1.2) mg/dL POC Creatinine 2.7 H (0.6-1.2) mg/dL GFR Calculation 34 Glucose 898 H* (70-105) mg/dL POC Glucose 700 H* (70-105) mg/dL Calcium 9.5 (8.6-10.4) mg/dL POC WB Ioniz Calcium 1.04 L (1.16-1.32) mmEq/L Magnesium (1.6-2.5) mg/dL Total Bilirubin 0.5 (0.1-1.0) mg/dL AST 16 (<40) U/L ALT 9 (<40) U/L Alkaline Phosphatase 137 H (39-117) U/L Troponin T (<0.03) ng/mL Total Protein 7.1 (5.9-8.4) gm/dL Albumin 4.1 (3.2-5.2) gm/dL Globulin 3.0 (2.2-3.7) gm/dL Albumin/Globulin Ratio 1.4 (1.0-2.3) Beta-Hydroxybutyrate 7.08 H (<0.27) mmol/L 01/10/21 01/10/21 01/10/21 Range/Units 08:54 12:18 12:18 WBC (4.5-11.0) K/mcL RBC (4.50-5.90) M/mcL Hgb (13.5-16.5) g/dL Hct (41.0-55.0) % POC Hct 36 L (41-55) % MCV (80.0-100.0) fL MCH (26.0-34.0) pg MCHC (31.0-36.0) g/dL RDW (11.5-14.5) % Plt Count (140-440) K/mcL MPV (7.4-10.4) fL Neut % (Auto) (38.0-78.0) % Lymph % (Auto) (15.0-49.0) % [place] % (Auto) (1.0-12.0) % Eos % (Auto) (0.0-7.0) % Baso % (Auto) (0.0-2.0) % Lymph # (Auto) (1.50-4.80) K/mcL [place] # (Auto) (0.10-0.90) K/mcL Eos # (Auto) (0.00-0.70) K/mcL Baso # (Auto) (0.00-0.20) K/mcL Absolute Neutrophils (1.80-8.00) K/mcL ABG Methemoglobin (0.4-1.5) % VBG pH (7.32-7.42) U VBG pCO2 (41.0-51.0) mmHg VBG pO2 (25.0-40.0) mmHg VBG HCO3 (24.0-28.0) mmol/L VBG Total CO2 (25.0-29.0) mmol/L VBG O2 Saturation (40.0-70.0) % VBG Base Excess (-2-3) Carboxyhemoglobin (0.0-1.5) % THgb Total Hemoglobin (13.5-16.5) gm/Dl POC Sodium 141 (133-145) mEq/L Sodium 140 (133-145) mmol/L POC Potassium 2.6 L* (3.3-5.1) mEql/L Potassium 2.6 L* (3.3-5.1) mmol/L POC Chloride 89 L (96-108) mEq/L Chloride 87 L (96-108) mmol/L Carbon Dioxide 30 (22-30) mmol/L POC Total CO2 30 (22-30) mmol/L Anion Gap 23.0 H (8.0-16.0) POC BUN 36 H (6-20) mg/dL BUN 38 H (6-20) mg/dL Creatinine 3.0 H (0.7-1.2) mg/dL POC Creatinine 3.0 H (0.6-1.2) mg/dL GFR Calculation 26 Glucose 697 H* (70-105) mg/dL POC Glucose 700 H* (70-105) mg/dL Calcium 9.0 (8.6-10.4) mg/dL POC WB Ioniz Calcium 1.09 L (1.16-1.32) mmEq/L Magnesium 1.8 (1.6-2.5) mg/dL Total Bilirubin (0.1-1.0) mg/dL AST (<40) U/L ALT (<40) U/L Alkaline Phosphatase (39-117) U/L Troponin T 0.02 (<0.03) ng/mL Total Protein (5.9-8.4) gm/dL Albumin (3.2-5.2) gm/dL Globulin (2.2-3.7) gm/dL Albumin/Globulin Ratio (1.0-2.3) Beta-Hydroxybutyrate (<0.27) mmol/L ED POC Tests ED POC Tests: GEGE - SARS Antigen Negative Discharge Plan Patient/Caregiver Discharge Instructions Pt seen by RADIOLOGIC TECHNOLOGIST MAMMOGRAM/PA only: No Clinical Impression: Hyperosmolar hyperglycemic state (HHS) Patient Disposition: Xfer As Inpt ([facility]) Condition: Undetermined Prescriptions: No Action insulin lispro [Humalog U-100 Insulin] 100 unit/mL solution See Rx Instructions SUB-Q QDAY Qty: 10 RF: 11 ondansetron [Zofran ODT] 4 mg tablet,disintegrating 4 mg PO Q6H Qty: 20 RF: 0 captopril 12.5 mg tablet 6.25 mg PO BID Qty: 90 RF: 0 (DME) insulin syringe-needle U-100 1/2 mL 31 x 15/64" syringe See Dose Instructions each .ROUTE .MEDSUPPLY RF: 0 glucagon (human recombinant) 1 mg kit 1 mg IM ONCE PRN (Reason: hypoglycemia) Qty: 7 RF: 0 promethazine [Phenadoz] 12.5 mg suppository 12.5 mg [place] Q6H PRNRF: 0 Lantus Solostar U-100 Insulin 100 unit/mL (3 mL) insulin pen 10 unit SUB-Q QDAY PRNRF: 0 Complete Multivitamin tablet 1 tab PO QDAY RF: 0 nortriptyline 10 mg capsule 10 mg PO QHS RF: 0 sennosides [senna] 8.6 mg tablet 8.6 mg PO QHS RF: 0 rizatriptan 10 mg tablet 10 mg PO ONCE RF: 0 sucralfate 1 gram tablet 1 g PO Q6H PRNRF: 0 alum-mag hydroxide-simeth 400-400-40 mg/5 mL suspension 10 ml PO TID PRNRF: 0 gabapentin 300 MG capsule 600 mg PO TID RF: 0 lorazepam 0.5 MG tablet 1 mg PO TID PRN (Reason: Anxiety) RF: 0 atorvastatin 40 MG tablet 40 mg PO HS RF: 0 clonidine 1 EACH patch weekly 1 patch topical WEEKLY RF: 0 sildenafil 100 MG tablet 100 mg PO DAILY PRN (Reason: Erectile Dysfunction) RF: 0 ranitidine HCl 150 MG tablet 150 mg PO BID RF: 0 melatonin 5 MG capsule 10 mg PO HS RF: 0 (DME) blood-glucose meter 1 EACH misc 0 each .Route .MEDSUPPLY RF: 0 (DME) blood sugar diagnostic 1 EACH strip 0 each .Route .MEDSUPPLY MDD 4 RF: 0 Diabetic Shoes 1 each .Route DAILY RF: 0 erythromycin 250 MG tablet 250 mg PO TID RF: 0 venlafaxine 150 MG tablet extended release 24hr 150 mg PO DAILY RF: 0 Ketamine 30 mg PO Q6HP PRN (Reason: Nausea) RF: 0 ondansetron 4 MG tablet 4 mg SL Q4-6HP PRN (Reason: Nausea) Qty: 10 RF: 0 carvedilol 3.125 mg Tablet 3.125 mg PO BID RF: 0 ondansetron HCl 4 mg/2 mL Syringe 4 mg IV PRN PRN (Reason: Nausea) RF: 0
[2021-01-10] MEDS ORDERED: ONDANSETRON 4 MG/2 ML VIAL IV ONE (09:01)
[2021-01-10 09:15] LABS: ABG Methemoglobin 0.3 % (0.4-1.5); Total Hemoglobin 12.1 gm/Dl (13.5-16.5); VBG Base Excess 5 (-2-3); VBG HCO3 29.6 mmol/L (24.0-28.0); VBG Oxygen Saturation 91.6 % (40.0-70.0); VBG PCO2 44.1 mmHg (41.0-51.0); VBG PH 7.45 U (7.32-7.42); VBG PO2 83.1 mmHg (25.0-40.0)
[2021-01-10] MEDS ORDERED: PROMETHAZINE 25 MG/ML VIAL IV ONE (09:18)
[2021-01-10] MEDS ORDERED: diphenhydrAMINE 50 MG/ML VIAL IV ONE (09:18)
[2021-01-10 09:21] LABS: POC Blood Urea Nitrogen 35 mg/dL (6-20); POC CO2 30 mmol/L (22-30); POC Calcium, Ionized 1.04 mmEq/L (1.16-1.32); POC Chloride 87 mEq/L (96-108); POC Creatinine 2.7 mg/dL (0.6-1.2); POC Glucose, Random 700 mg/dL (70-105); POC Hematocrit 41 % (41-55); POC Potassium 3.3 mEql/L (3.3-5.1); POC Sodium 136 mEq/L (133-145)
[2021-01-10] MEDS ORDERED: PHENobarb/HYOSCY/ATROPINE/SCOP 1 DOSE BOTTLE PO ONE ×2 (09:25→13:30)
[2021-01-10 09:28] LABS: Basophils # (Auto) 0.08 K/mcL (0.00-0.20); Basophils % (Auto) 0.6 % (0.0-2.0); Eosinophils # (Auto) 0 K/mcL (0.00-0.70); Eosinophils % (Auto) 0 % (0.0-7.0); Hematocrit 38.3 % (41.0-55.0); Hemoglobin 12.2 g/dL (13.5-16.5); Lymphocytes # (Auto) 0.46 K/mcL (1.50-4.80); Lymphocytes % (Auto) 3.3 % (15.0-49.0); Mean Cell Volume 90.5 fL (80.0-100.0); Mean Corpuscular HGB Conc 31.9 g/dL (31.0-36.0); Mean Platelet Volume 12.5 fL (7.4-10.4); Monocytes # (Auto) 0.52 K/mcL (0.10-0.90); Monocytes % (Auto) 3.8 % (1.0-12.0); Neutrophils % (Auto) 92.3 % (38.0-78.0); Platelet Count 163 K/mcL (140-440); RBC 4.23 M/mcL (4.50-5.90); Red Cell Distribution Width 13.6 % (11.5-14.5); WBC 13.8 K/mcL (4.5-11.0)
[2021-01-10] MEDS ORDERED: INSULIN REGULAR, HUMAN 50 UNIT in 0.9 % SODIUM CHLORIDE 99.5 ML IV SCH ×4 (09:30→16:12)
--- NOTE | 2021-01-10 09:36 | XRay Report ---
CLINICAL INFORMATION: vomiting, low 02 sat COMPARISON: 02/21/2019 FINDINGS: Heart size, mediastinum and pulmonary vessels are normal. Lungs are clear. No effusions. Bones soft tissues normal. IMPRESSION: Normal Interpreted and Authenticated by: Demetrius Smart 01/10/21
[2021-01-10 10:03] LABS: ALT/SGPT 9 U/L (<40); AST/SGOT 16 U/L (<40); Albumin 4.1 gm/dL (3.2-5.2); Albumin/Globulin Ratio 1.4 (1.0-2.3); Alkaline Phosphatase 137 U/L (39-117); Bilirubin,Total 0.5 mg/dL (0.1-1.0); Blood Urea Nitrogen 33 mg/dL (6-20); Calcium 9.5 mg/dL (8.6-10.4); Carbon Dioxide 26 mmol/L (22-30); Chloride 83 mmol/L (96-108); Glomerular Filtration Rate 34; Glucose 898 mg/dL (70-105)
[2021-01-10 10:14] LABS: Beta Hydroxybutyrate 7.08 mmol/L (<0.27)
[2021-01-10] MEDS ORDERED: INSULIN REGULAR, HUMAN 1 UNIT/0.01 ML UNIT IV ONE (10:42)
[2021-01-10] MEDS ORDERED: CARVEDILOL 3.125 MG TABLET PO ONE (11:26)
[2021-01-10] MEDS ORDERED: 0.9 % SODIUM CHLORIDE 1,000 ML IV SCH ×3 (11:30→16:12)
[2021-01-10 12:46] LABS: POC Blood Urea Nitrogen 36 mg/dL (6-20); POC CO2 30 mmol/L (22-30); POC Calcium, Ionized 1.09 mmEq/L (1.16-1.32); POC Chloride 89 mEq/L (96-108); POC Glucose, Random 700 mg/dL (70-105); POC Hematocrit 36 % (41-55); POC Potassium 2.6 mEql/L (3.3-5.1); POC Sodium 141 mEq/L (133-145)
[2021-01-10] MEDS ORDERED: POTASSIUM CHLORIDE 20 MEQ TABLET PO ONE (13:21)
--- NOTE | 2021-01-10 13:23 | Internal Med History&Physical ---
HPI History of Present Illness Patient information: Note initiated : 01/10/21 at 1:21 pm Service Date, if different from initiated Date: [] Patient: Mauri Levine 35 y/o M admitted on for dka. Chief Complaint: [] History of present illness: Mr. Levine is a 35 year old M Patient presents to the ED with nausea vomiting weakness for several days. He noticed earlier this morning that his insulin pump was out of insulin and he felt too sick to replace it came to the ED. His blood sugar is found to be 900. With a mild acute on chronic kidney disease. Patient denies any recent illnesses. His laboratory was consistent with a HHS/DKA overlap. Patient started on IV fluid and insulin drip. Review of Systems: Pertinent positives as above. Denies headache/fever/chills/chest or abdominal pain/cough/dyspnea/diarrhea. Remaining 10 point review of system reviewed negative PFSH PFSH All Active Problems (Updated 01/10/21 @ 11:56 by Rishabh Siddiqui MD) Dehydration (Acute) Hyperglycemia (Acute) Hypercarbia (Acute) Diabetic hyperosmolar non-ketotic state (Acute) Drug-induced nausea and vomiting (Acute) Diabetic gastroparesis (Acute) Hyperosmolar hyperglycemic state (HHS) (Acute) Type 1 diabetes mellitus with stage 3 chronic kidney disease and hypertension (Chronic) Cyclic vomiting syndrome (Chronic) Uncontrolled type 1 diabetes mellitus with diabetic nephropathy, with long-term current use of insulin (Chronic) History of neuroleptic malignant syndrome (Chronic) Peripheral autonomic neuropathy due to DM (Chronic) Diabetic peripheral neuropathy (Chronic) Hyperlipidemia (Chronic) Hypertension, essential (Chronic) Diabetes mellitus type I (Chronic) Other hammer toe(s) (acquired), left foot (Chronic) Esophageal candidiasis (Chronic) GERD (gastroesophageal reflux disease) (Chronic) Nausea and vomiting (Chronic) Abdominal pain, epigastric (Chronic) Gastroparesis due to DM (Chronic) Testosterone deficiency (Chronic) Medical History (Updated 01/10/21 @ 11:56 by Rishabh Siddiqui MD) Abdominal pain, epigastric Chronic ulcer of left foot Coffee ground emesis Diabetes mellitus type I Age 12, With foot ulcer Diabetic peripheral neuropathy DKA, type 1 Esophageal candidiasis Gastroparesis due to DM GERD (gastroesophageal reflux disease) Hallux valgus (acquired), left foot History of neuroleptic malignant syndrome to compazine (prochlorperazine) Hyperlipidemia Hypertension, essential Hypokalemia Connie-[place]rne tear Nausea and vomiting Non-pressure chronic ulcer of other part of left foot limited to breakdown of skin Other hammer toe(s) (acquired), left foot Peripheral autonomic neuropathy due to DM Sepsis Tardive dyskinesia due to metoclopramide (Reglan) Testosterone deficiency Surgical History History of toe surgery left hallux Family History Mother Atrial fibrillation Essential hypertension Sister Malignant neoplasm of female breast Maternal Grandfather Malignant neoplasm of colon Recorded 11/12/10 Father Essential hypertension Other DKA, type 1 Social History (Updated 04/04/19 @ 17:15 by Khari Mills MD) adopted: Yes alcohol intake frequency: a few times a month substance use type: marijuana seatbelt use: always MEDS/ALLERGIES Home Medications and Allergies Home Medications Medication Instructions Recorded Confirmed Type insulin syringe-needle U-100 /03/27/15 03/25/19 History mL 31 gauge x 15/64" glucagon (human recombinant) 1 mg 1 mg IM ONCE PRN #7 each 10/02/15 04/04/19 Rx injection kit insulin lispro 100 unit/mL See Rx Instructions SUB-Q QDAY #10 04/20/17 04/04/19 Rx subcutaneous solution ml ondansetron 4 mg disintegrating 4 mg PO Q6H #20 tab 08/12/17 04/04/19 Rx tablet gabapentin 600 mg PO TID 12/24/18 04/04/19 History lorazepam 0.5 mg PO TID PRN 12/24/18 04/04/19 History Diabetic Shoes 1 each .ROUTE DAILY 02/13/19 03/25/19 History atorvastatin 40 mg PO HS 02/13/19 04/04/19 History blood sugar diagnostic 02/13/19 03/25/19 History blood-glucose meter 02/13/19 03/25/19 History clonidine 1 patch TOPICAL WEEKLY 02/13/19 04/04/19 History melatonin 10 mg PO HS 02/13/19 04/04/19 History ranitidine HCl 150 mg PO BID 02/13/19 04/04/19 History sildenafil 100 mg PO DAILY PRN 02/13/19 04/04/19 History erythromycin 250 mg PO TID 02/16/19 04/04/19 History venlafaxine 150 mg PO DAILY 02/21/19 04/04/19 History Ketamine 30 mg PO Q6HP PRN 03/25/19 04/04/19 History aluminum-mag hydroxide-simethicone 10 ml PO TID PRN 04/04/19 04/04/19 History 400 mg-400 mg-40 mg/5 mL oral susp insulin glargine 100 unit/mL (3 10 unit SUB-Q QDAY PRN 04/04/19 04/04/19 History mL) subcutaneous pen multivitamin,bo-[id number]-[id number] 1 tab PO QDAY 04/04/19 04/04/19 History nortriptyline 10 mg capsule 10 mg PO QHS 04/04/19 04/04/19 History promethazine 12.5 mg rectal 12.5 mg UT Q6H PRN 04/04/19 04/04/19 History suppository rizatriptan 10 mg tablet 10 mg PO ONCE 04/04/19 04/04/19 History sennosides 8.6 mg tablet 8.6 mg PO QHS tab 04/04/19 04/04/19 History sucralfate 1 gram tablet 1 g PO Q6H PRN tab 04/04/19 04/04/19 History captopril 12.5 mg tablet 6.25 mg PO BID #90 tab 04/09/19 Rx ondansetron 4 mg SL Q4-6HP PRN #10 tab 12/30/19 Rx Allergies Allergy/AdvReac Type Severity Reaction Status Date / Time silver Allergy Mild Rash Verified 12/30/19 04:18 metoclopramide [From Reglan] AdvReac Mild Agitated Verified 12/30/19 04:18 prochlorperazine AdvReac Mild "My whole Verified 12/30/19 04:18 [From Compazine] body freaks out." EXAM Constitutional Vitals: Pulse Resp BP Pulse Ox 98 H 22 144/69 97 01/10/21 13:00 01/10/21 13:00 01/10/21 13:00 01/10/21 13:00 Exam: General: Alert, Awake, No acute Distress Eyes/N/T: EOMI, PERRL, dry MM Head/Neck: neck supple, normocephalic atraumatic CV: RRR, No murmurs, normal s1/s2 Pulm: Clear b/l, no wheezing/rhonchi/rales Abd: soft, nontender, +BS x4 Ext: no clubbing/cyanosis/edema Neuro: Alert, no focal deficits, moves all extremities, CN 2-12 grossly intact, symmetrical strength b/l upper/lower, sensations intact b/l upper/lower Skin: warm/dry DATA Data Completed and Pending Labs: Labs from last 24 hours 01/10/21 01/10/21 01/10/21 12:18 12:18 08:54 WBC RBC Hgb Hct POC Hct 36 L MCV MCH MCHC RDW Plt Count MPV Neut % (Auto) Lymph % (Auto) [place] % (Auto) Eos % (Auto) Baso % (Auto) Lymph # (Auto) [place] # (Auto) Eos # (Auto) Baso # (Auto) Absolute Neutrophils ABG Methemoglobin VBG pH VBG pCO2 VBG pO2 VBG HCO3 VBG Total CO2 VBG O2 Saturation VBG Base Excess Carboxyhemoglobin Total Hemoglobin POC Sodium 141 Sodium Pending POC Potassium 2.6 L* Potassium Pending POC Chloride 89 L Chloride Pending Carbon Dioxide Pending POC Total CO2 30 Anion Gap Pending POC BUN 36 H BUN Pending Creatinine Pending POC Creatinine 3.0 H GFR Calculation Pending Glucose Pending POC Glucose 700 H* Calcium Pending POC WB Ioniz Calcium 1.09 L Magnesium Pending Total Bilirubin AST ALT Alkaline Phosphatase Troponin T 0.02 Total Protein Albumin Globulin Albumin/Globulin Ratio Beta-Hydroxybutyrate 01/10/21 01/10/21 01/10/21 08:54 08:54 08:54 WBC 13.8 H RBC 4.23 L Hgb 12.2 L Hct 38.3 L POC Hct 41 MCV 90.5 MCH 28.8 MCHC 31.9 RDW 13.6 Plt Count 163 MPV 12.5 H Neut % (Auto) 92.3 H Lymph % (Auto) 3.3 L La[place] % (Auto) 3.8 Eos % (Auto) 0 Baso % (Auto) 0.6 Lymph # (Auto) 0.46 L [place] # (Auto) 0.52 Eos # (Auto) 0 Baso # (Auto) 0.08 Absolute Neutrophils 12.70 H ABG Methemoglobin 0.3 L VBG pH 7.45 H VBG pCO2 44.1 VBG pO2 83.1 H VBG HCO3 29.6 H VBG Total CO2 31.0 H VBG O2 Saturation 91.6 H VBG Base Excess 5 H Carboxyhemoglobin 4.8 H Total Hemoglobin 12.1 L POC Sodium 136 Sodium 138 POC Potassium 3.3 Potassium 3.5 POC Chloride 87 L Chloride 83 L Carbon Dioxide 26 POC Total CO2 30 Anion Gap 29.0 H POC BUN 35 H BUN 33 H Creatinine 2.4 H POC Creatinine 2.7 H GFR Calculation 34 Glucose 898 H* POC Glucose 700 H* Calcium 9.5 POC WB Ioniz Calcium 1.04 L Magnesium Total Bilirubin 0.5 AST 16 ALT 9 Alkaline Phosphatase 137 H Troponin T Total Protein 7.1 Albumin 4.1 Globulin 3.0 Albumin/Globulin Ratio 1.4 Beta-Hydroxybutyrate 7.08 H A/P Narrative A/P Narrative: A: *HHS/DKA overlap: *DM type I with Gastroparesis/Neuropathy: -A1c *Hypovolemia: improving *HTN urgency: *ROSALIO on CKD III (?baseline, new): is supposed to see nephrology outpt *Anemia, chronic *HTN: On clonidine/lisinopril *Anxiety/depression: On Ativan and venlafaxine *GERD: P: -Insulin gtt to home pump likely tomorrow -IV fluids -Monitor electrolytes and replace -Ice chips if patient is tolerant and advance diet as able -Antiemetics -hold ACEI for ROSALIO, IV prn BP meds -A1c -home med update -ppx: Lovenox/H2 Time Spent With Patient Time: Total time spent is greater than 50% in coordination of care (as documented) at patient's floor/unit and/or counseling patient:
[2021-01-10] MEDS ORDERED: POTASSIUM CHLORIDE 40 MEQ in DEXTROSE 5% IN WATER 500 ML IV ONE ×4 (13:30→18:00)
[2021-01-10 13:44] LABS: Blood Urea Nitrogen 38 mg/dL (6-20); Carbon Dioxide 30 mmol/L (22-30); Chloride 87 mmol/L (96-108); Glomerular Filtration Rate 26; Glucose 697 mg/dL (70-105)
[2021-01-10] MEDS ORDERED: POTASSIUM CHLORIDE 80 MEQ in DEXTROSE 5% IN WATER 1,000 ML IV ONE (13:49)
[2021-01-10] MEDS ORDERED: 0.9 % SODIUM CHLORIDE 250 ML IV SCH (15:15)
[2021-01-10] MEDS: 0.9 % SODIUM CHLORIDE 250 ML IV SCH (15:20)
[2021-01-10] MEDS ORDERED: ONDANSETRON 4 MG/2 ML VIAL IV PRN (15:25)
[2021-01-10] MEDS ORDERED: LABETALOL 5 MG/ML ML IV PRN (15:25)
[2021-01-10] MEDS ORDERED: MAGNESIUM SULFATE 2 GM/50 ML BAG IV PRN ×2 (15:25→16:12)
[2021-01-10] MEDS ORDERED: IPRATROPIUM/ALBUTEROL 3 ML AMPUL.NEB NEB PRN ×2 (15:25→16:12)
[2021-01-10] MEDS ORDERED: ACETAMINOPHEN 325 MG TABLET PO PRN ×2 (15:25→16:12)
[2021-01-10] MEDS ORDERED: NACL 0.9% W/KCL 20MEQ 1,000 ML IV SCH ×2 (15:25→16:12)
[2021-01-10] MEDS ORDERED: SENNOSIDES 1 TABLET PO PRN ×2 (15:25→16:12)
[2021-01-10] MEDS ORDERED: POTASSIUM CHLORIDE 20 MEQ TABLET PO PRN ×4 (15:25→16:12)
[2021-01-10] MEDS ORDERED: POTASSIUM CHLORIDE 40 MEQ in DEXTROSE 5% IN WATER 500 ML IV PRN ×2 (15:25→16:12)
[2021-01-10] MEDS ORDERED: HYDROcodone/APAP 5/325MG TABLET PO PRN ×2 (15:25→16:12)
[2021-01-10] MEDS ORDERED: hydrALAZINE 20 MG/ML VIAL IV PRN (15:25)
[2021-01-10] MEDS ORDERED: METOCLOPRAMIDE 10 MG/2 ML VIAL IV PRN ×2 (15:25→16:12)
[2021-01-10] MEDS ORDERED: 0.9 % SODIUM CHLORIDE 10 ML SYRINGE IV SCH (15:25)
[2021-01-10] MEDS ORDERED: GABAPENTIN 300 MG CAPSULE PO PRN ×3 (16:08→18:00)
[2021-01-10] MEDS ORDERED: MAG HYDROX/AL HYDROX/SIMETH 30 ML ORAL.SUSP PO PRN (16:08)
[2021-01-10] MEDS ORDERED: SUCRALFATE 1 GM TABLET PO PRN ×2 (16:08→16:12)
[2021-01-10] MEDS ORDERED: LORazepam 0.5 MG TABLET PO PRN (16:08)
[2021-01-10] MEDS ORDERED: KETAMINE MUCOUS MEM PRN ×2 (16:08→16:12)
[2021-01-10 16:19] LABS: Hemoglobin A1C 6.5 % Hgb (4.0-6.0)
[2021-01-10] MEDS ORDERED: PROMETHAZINE 25 MG/ML VIAL ONE (17:00)
[2021-01-10] MEDS ORDERED: diphenhydrAMINE 50 MG/ML VIAL ONE (17:00)
[2021-01-10] MEDS ORDERED: LORazepam 2 MG/ML VIAL ONE (17:02)
[2021-01-10] MEDS: LORazepam 2 MG/ML VIAL IV PRN ×2 (17:13→21:16)
[2021-01-10] MEDS: diphenhydrAMINE 50 MG/ML VIAL IV PRN ×2 (17:13→21:17)
[2021-01-10] MEDS: PROMETHAZINE 25 MG/ML VIAL IV PRN ×2 (17:13→21:15)
[2021-01-10] MEDS: CARVEDILOL 3.125 MG TABLET PO SCH (18:37)
[2021-01-10] MEDS: DEXTROSE 5%-1/2NS W/20MEQ KCL 1,000 ML IV SCH (18:40)
--- NOTE | 2021-01-10 18:41 | EKG ---
[facility] Test Date: 2021-01-10 Pat Name: Mauri Levine Department: ED Room: Gender: Male C Consultant: : 1985 Requested By: Rishabh Siddqiui Order Number: [id number] Reading MD: Dale Webb M.D. Measurements Intervals Mobile Rate: 107 P: 66 WA: 155 QRS: 69 QRSD: 84 T: 82 QT: 388 QTc: 518 Interpretive Statements Sinus tachycardia Probable left atrial enlargement Minimal ST depression, lateral leads Prolonged QT interval ABNORMAL ECG Electronically Signed On 01-10-2021 18:40:56 PDT by Dale Webb M.D. /store/M0/[id number]
[2021-01-10 19:22] LABS: Blood Urea Nitrogen 38 mg/dL (6-20); Calcium 8.6 mg/dL (8.6-10.4); Carbon Dioxide 34 mmol/L (22-30); Chloride 95 mmol/L (96-108); Glomerular Filtration Rate 25; Glucose 315 mg/dL (70-105); Phosphorous 1.9 mg/dL (2.5-4.5)
[2021-01-10] MEDS ORDERED: POTASSIUM PHOSPHATE 40 MEQ in DEXTROSE 5% IN WATER 500 ML IV ONE (19:47)
[2021-01-10] MEDS: ONDANSETRON 4 MG/2 ML VIAL IV PRN (20:09)
[2021-01-10] MEDS ORDERED: POTASSIUM PHOSPHATE 66 MEQ/15 ML VIAL IV ONE (20:12)
[2021-01-10] MEDS ORDERED: CARVEDILOL 3.125 MG TABLET PO SCH (21:00)
[2021-01-10] MEDS ORDERED: NORTRIPTYLINE 10 MG CAPSULE PO SCH (21:00)
[2021-01-10] MEDS ORDERED: DOCUSATE SODIUM 100 MG CAPSULE PO SCH (21:00)
[2021-01-10] MEDS ORDERED: ATORVASTATIN 40 MG TABLET PO SCH (21:00)
[2021-01-10] MEDS: DOCUSATE SODIUM 100 MG CAPSULE PO SCH (21:29)
[2021-01-10] MEDS: ATORVASTATIN 40 MG TABLET PO SCH (21:29)
[2021-01-10] MEDS: NORTRIPTYLINE 10 MG CAPSULE PO SCH (21:30)
[2021-01-10] MEDS: 0.9 % SODIUM CHLORIDE 10 ML SYRINGE IV SCH (21:30)
[2021-01-10] MEDS: CAPTOPRIL 12.5 MG TABLET PO SCH (21:30)
[2021-01-11] MEDS: ONDANSETRON 4 MG/2 ML VIAL IV PRN ×3 (00:55→19:32)
[2021-01-11] MEDS: DEXTROSE 5%-1/2NS W/20MEQ KCL 1,000 ML IV SCH ×4 (01:38→18:19)
[2021-01-11] MEDS: LORazepam 2 MG/ML VIAL IV PRN ×3 (01:43→22:00)
[2021-01-11] MEDS: diphenhydrAMINE 50 MG/ML VIAL IV PRN ×5 (01:43→22:00)
[2021-01-11] MEDS: MAG HYDROX/AL HYDROX/SIMETH 30 ML ORAL.SUSP PO PRN ×2 (01:44→05:58)
[2021-01-11] MEDS: PROMETHAZINE 25 MG/ML VIAL IV PRN ×5 (01:44→22:00)
[2021-01-11 01:58] LABS: Appearance,Urine HAZY (Clear); Bilirubin,Urine Negative (Negative); Color,Urine YELLOW; Culture Indicated,Urine No; Glucose,Urine (UA) >=500 mg/dL (Negative); Ketones,Urine 5 mg/dL (Negative); Leukocyte Esterase,Urine Negative /ug (Negative); Mucus,Urine FEW /hpf; Nitrate,Urine Negative (Negative); Protein,Urine 100 mg/dL (Negative); Specific Gravity,Urine 1.015 (1.000-1.035); Urine Hyaline Cast 5 /lph (0-2); Urine RBC < 1 /hpf (0-3); Urine Squamous Epithelial Cell 1 /hpf (0-4); Urine WBC 6 /hpf (0-4); Urobilinogen,Urine Negative
[2021-01-11] MEDS: LABETALOL 5 MG/ML ML IV PRN ×6 (02:28→20:31)
[2021-01-11] MEDS: 0.9 % SODIUM CHLORIDE 250 ML IV SCH ×3 (03:57→19:00)
[2021-01-11] MEDS: 0.9 % SODIUM CHLORIDE 10 ML SYRINGE IV SCH ×3 (06:07→21:50)
[2021-01-11 06:42] LABS: Basophils # (Auto) 0.06 K/mcL (0.00-0.20); Basophils % (Auto) 0.3 % (0.0-2.0); Eosinophils # (Auto) 0.01 K/mcL (0.00-0.70); Eosinophils % (Auto) 0.1 % (0.0-7.0); Hematocrit 32.9 % (41.0-55.0); Hemoglobin 10.9 g/dL (13.5-16.5); Lymphocytes # (Auto) 1.59 K/mcL (1.50-4.80); Lymphocytes % (Auto) 8.5 % (15.0-49.0); Mean Cell Volume 87.3 fL (80.0-100.0); Mean Corpuscular HGB Conc 33.1 g/dL (31.0-36.0); Mean Platelet Volume 11.9 fL (7.4-10.4); Monocytes # (Auto) 1.15 K/mcL (0.10-0.90); Monocytes % (Auto) 6.1 % (1.0-12.0); Platelet Count 177 K/mcL (140-440); RBC 3.77 M/mcL (4.50-5.90); Red Cell Distribution Width 13.7 % (11.5-14.5); WBC 18.8 K/mcL (4.5-11.0)
[2021-01-11 07:11] LABS: ALT/SGPT 9 U/L (<40); AST/SGOT 19 U/L (<40); Albumin 3.4 gm/dL (3.2-5.2); Albumin/Globulin Ratio 1.4 (1.0-2.3); Alkaline Phosphatase 102 U/L (39-117); Bilirubin,Direct < 0.2 mg/dL (0-0.3); Bilirubin,Total 0.3 mg/dL (0.1-1.0); Blood Urea Nitrogen 33 mg/dL (6-20); Calcium 7.3 mg/dL (8.6-10.4); Carbon Dioxide 33 mmol/L (22-30); Chloride 98 mmol/L (96-108); Globulin 2.5 gm/dL (2.2-3.7); Glomerular Filtration Rate 27; Glucose 236 mg/dL (70-105); Lactate Dehydrogenase 255 U/L (135-225); Triglycerides 50 mg/dL (<150); Uric Acid 5.9 mg/dL (2.5-8.0)
[2021-01-11] MEDS ORDERED: PANTOPRAZOLE 40 MG VIAL IV SCH (07:30)
--- NOTE | 2021-01-11 08:11 | Internal Med Progress Note ---
SUBJECTIVE Subjective Patient information: Note initiated : 01/11/21 at 8:09 am Service Date, if different from initiated Date: [] Patient: Mauri Levine 35 y/o M admitted on 01/10/21 for dka. Chief Complaint: [] Interval history: History of present illness: Mr. Levine is a 35 year old M Patient presents to the ED with nausea vomiting weakness for several days. He noticed earlier this morning that his insulin pump was out of insulin and he felt too sick to replace it came to the ED. His blood sugar is found to be 900. With a mild acute on chronic kidney disease. Patient denies any recent illnesses. His laboratory was consistent with a HHS/DKA overlap. Patient started on IV fluid and insulin drip. 01/11 Patient feeling a little better. No nausea vomiting. No diarrhea. Discussed patient insulin pump and he is post have some to bring it in so we can restart the pump and take off insulin drip. Patient was supposed to see nephrology the past but is still not seen one. Review of Systems: denies headache/fever/chills/nausea/vomiting/chest or abdominal pain/cough/dyspnea/diarrhea. Otherwise see above. Constitutional Vitals: Vital Signs Temp Pulse Resp BP Pulse Ox 99.3 F H 76 25 H 147/69 94 01/11/21 04:07 01/11/21 07:01 01/11/21 07:01 01/11/21 07:01 01/11/21 07:01 Period Temp Pulse Resp BP Sys/Menard Pulse Ox Last 24 Hr 98.8 F-99.3 F 75-112 18-38 104-203/61-110 78-100 Intake and Output 01/10/21 01/11/21 01/11/21 21:59 05:59 13:59 Intake Total 3226 1939.0909 3 Output Total 0 400 Balance 3226 1539.0909 3 Weight 86.409 kg Intake & Output: Intake & Output 01/10/21 01/11/21 01/11/21 21:59 05:59 13:59 Intake Total 3226 1939.0909 3 Output Total 0 400 Balance 3226 1539.0909 3 Weight 86.409 kg Intake: IV 3226 1819.0909 3 Sodium Chloride 0.9% 1,000 ml @ 2000 175 mls/hr IV .Q5H43M [facility] Rx#: [id number] Sodium Chloride 0.9% 250 ml @ 250 20 mls/hr IV .[id number] [facility] Rx#: [id number] Dextrose 5%-1/2Ns W/20Meq KCl 1 1000 ,000 ml @ 150 mls/hr IV .Q6H40M [facility] Rx#:[id number] HumuLIN R 50 UNIT In Sodium 64 60 3 Chloride 0.9% 99.5 ml @ 1 UNIT/ HR 2 mls/hr IV DUR [facility] Rx#: [id number] NaCl 0.9% W/KCl 20Meq 1000ML 1, 410 000 ml @ 200 mls/hr IV .Q5H [facility] Rx#:[id number] Potassium Chloride 40 Meq In 752 Dextrose 5% in Water 500 ml @ 130 mls/hr IV ONCE ONE Rx#: [id number] Potassium Phosphate 40 Meq In 509.0909 Dextrose 5% in Water 500 ml @ 127.273 mls/hr IV ONCE ONE Rx#: [id number] Oral 120 Output: Void Amount 0 250 Emesis 150 Other: Urine Appearance Clear Urine Color Bright Yellow Urine Odor Normal Exam: General: Alert, Awake, No acute Distress Eyes/N/T: EOMI, Head/Neck: neck supple, CV: RRR, No murmurs, Pulm: Clear b/l, no wheezing/rhonchi/rales Abd: soft, nontender, +BS x4 Ext: no clubbing/cyanosis/edema Neuro: Alert, no focal deficits, moves all extremities, Skin: warm/dry OBJ DATA Labs CBC & Chem 7: 01/11/21 05:23 01/11/21 05:22 Labs: Abnormal Lab Results 01/11/21 01/11/21 01/11/21 05:23 05:22 01:07 WBC 18.8 H RBC 3.77 L Hgb 10.9 L Hct 32.9 L POC Hct MPV 11.9 H Neut % (Auto) 85.0 H Lymph % (Auto) 8.5 L Lymph # (Auto) [place] # (Auto) 1.15 H Absolute Neutrophils 15.94 H ABG Methemoglobin VBG pH VBG pO2 VBG HCO3 VBG Total CO2 VBG O2 Saturation VBG Base Excess Carboxyhemoglobin Total Hemoglobin POC Potassium Potassium 3.2 L POC Chloride Chloride Carbon Dioxide 33 H Anion Gap POC BUN BUN 33 H Creatinine 2.9 H POC Creatinine Glucose 236 H POC Glucose Hemoglobin A1c Calcium 7.3 L POC WB Ioniz Calcium Phosphorus Magnesium 1.5 L Alkaline Phosphatase Lactate Dehydrogenase 255 H Beta-Hydroxybutyrate Urine Appearance Hazy A Urine Protein 100 A Urine Glucose (UA) >=500 A Urine Ketones 5 A Urine WBC 6 H Hyaline Casts 5 H Urine Mucus Few A 01/10/21 01/10/21 01/10/21 18:25 12:18 12:18 WBC RBC Hgb Hct POC Hct 36 L MPV Neut % (Auto) Lymph % (Auto) Lymph # (Auto) [place] # (Auto) Absolute Neutrophils ABG Methemoglobin VBG pH VBG pO2 VBG HCO3 VBG Total CO2 VBG O2 Saturation VBG Base Excess Carboxyhemoglobin Total Hemoglobin POC Potassium 2.6 L* Potassium 2.6 L* POC Chloride 89 L Chloride 95 L 87 L Carbon Dioxide 34 H Anion Gap 23.0 H POC BUN 36 H BUN 38 H 38 H Creatinine 3.1 H 3.0 H POC Creatinine 3.0 H Glucose 315 H 697 H* POC Glucose 700 H* Hemoglobin A1c Calcium POC WB Ioniz Calcium 1.09 L Phosphorus 1.9 L Magnesium Alkaline Phosphatase Lactate Dehydrogenase Beta-Hydroxybutyrate Urine Appearance Urine Protein Urine Glucose (UA) Urine Ketones Urine WBC Hyaline Casts Urine Mucus 01/10/21 01/10/21 01/10/21 08:54 08:54 08:54 WBC 13.8 H RBC 4.23 L Hgb 12.2 L Hct 38.3 L POC Hct MPV 12.5 H Neut % (Auto) 92.3 H Lymph % (Auto) 3.3 L Lymph # (Auto) 0.46 L [place] # (Auto) Absolute Neutrophils 12.70 H ABG Methemoglobin 0.3 L VBG pH 7.45 H VBG pO2 83.1 H VBG HCO3 29.6 H VBG Total CO2 31.0 H VBG O2 Saturation 91.6 H VBG Base Excess 5 H Carboxyhemoglobin 4.8 H Total Hemoglobin 12.1 L POC Potassium Potassium POC Chloride Chloride Carbon Dioxide Anion Gap POC BUN BUN Creatinine POC Creatinine Glucose POC Glucose Hemoglobin A1c 6.5 H Calcium POC WB Ioniz Calcium Phosphorus Magnesium Alkaline Phosphatase Lactate Dehydrogenase Beta-Hydroxybutyrate Urine Appearance Urine Protein Urine Glucose (UA) Urine Ketones Urine WBC Hyaline Casts Urine Mucus 01/10/21 08:54 WBC RBC Hgb Hct POC Hct MPV Neut % (Auto) Lymph % (Auto) Lymph # (Auto) [place] # (Auto) Absolute Neutrophils ABG Methemoglobin VBG pH VBG pO2 VBG HCO3 VBG Total CO2 VBG O2 Saturation VBG Base Excess Carboxyhemoglobin Total Hemoglobin POC Potassium Potassium POC Chloride 87 L Chloride 83 L Carbon Dioxide Anion Gap 29.0 H POC BUN 35 H BUN 33 H Creatinine 2.4 H POC Creatinine 2.7 H Glucose 898 H* POC Glucose 700 H* Hemoglobin A1c Calcium POC WB Ioniz Calcium 1.04 L Phosphorus Magnesium Alkaline Phosphatase 137 H Lactate Dehydrogenase Beta-Hydroxybutyrate 7.08 H Urine Appearance Urine Protein Urine Glucose (UA) Urine Ketones Urine WBC Hyaline Casts Urine Mucus Meds: Medications Acetaminophen (Acetaminophen 325 Mg Tablet) 650 mg PO Q6HP PRN PRN Reason: PAIN/FEVER > 101 Hydrocodone Bitart/Acetaminophen (Hydrocodone/Apap 5/325mg Tablet) 1 tab PO Q4HP PRN PRN Reason: PAIN LEVEL 3-6 Al Hydrox/Mg Hydrox/Simethicone (Mag Hydrox/Al Hydrox/Simeth 30 Ml Oral.Susp) 10 ml PO TIDP PRN PRN Reason: Nausea Last Admin: 01/11/21 05:58 Dose: 10 ml Documented by: Albuterol/Ipratropium (Ipratropium/Albuterol 3 Ml Ampul.Neb) 3 ml NEB Q4HP PRN PRN Reason: Shortness Of Breath Atorvastatin Calcium (Atorvastatin 40 Mg Tablet) 40 mg PO [facility] Last Admin: 01/10/21 21:29 Dose: 40 mg Documented by: Captopril (Captopril 12.5 Mg Tablet) 6.25 mg PO BID [facility] Last Admin: 01/10/21 21:30 Dose: 6.25 mg Documented by: Carvedilol (Carvedilol 3.125 Mg Tablet) [facility] Last Admin: 01/10/21 18:37 Dose: 3.125 mg Documented by: Diagnostic Test (Pha) (Accu-Chek 1 Each Strip) 1 each FS Q1 [facility] Last Admin: 01/11/21 06:11 Dose: 1 each Documented by: Diphenhydramine HCl (Diphenhydramine 50 Mg/Ml Vial) 25 mg IV Q4-6HP PRN PRN Reason: PREVENT DYSTONIC REACTION Last Admin: 01/11/21 05:49 Dose: 25 mg Documented by: Docusate Sodium (Docusate Sodium 100 Mg Capsule) 100 mg PO BID [facility] Last Admin: 01/10/21 21:29 Dose: Not Given Documented by: Enoxaparin Sodium (Enoxaparin 40 Mg/0.4 Ml Syringe) 40 mg SQ DAILY [facility] Gabapentin (Gabapentin 300 Mg Capsule) 300 mg PO TIDP PRN PRN Reason: Pain Hydralazine HCl (Hydralazine 20 Mg/Ml Vial) 0 mg IV Q2HP PRN PRN Reason: Hypertension Magnesium Sulfate (Magnesium Sulfate) 2 gm in 50 mls @ 50 mls/hr IV UD PRN PRN Reason: Magnesium </= 1.6 Potassium Chloride 40 meq/ (Dextrose) 520 mls @ 130 mls/hr IV UD PRN PRN Reason: Potassium < 3 Insulin Human Regular 50 unit/ (Sodium Chloride) 100 mls @ 2 mls/hr IV DUR [facility]; Protocol Sodium Chloride (Sodium Chloride 0.9%) 250 mls @ 20 mls/hr IV .[id number] [facility] Last Admin: 01/11/21 03:57 Dose: 20 mls/hr Documented by: Potassium Chloride/Dextrose/Sod Cl (Dextrose 5%-1/2ns W/20meq Kcl) 1,000 mls @ 150 mls/hr IV .Q6H40M [facility] Last Admin: 01/11/21 01:38 Dose: 150 mls/hr Documented by: Labetalol HCl (Labetalol 5 Mg/Ml Ml) 0 mg IV Q2HP PRN PRN Reason: Hypertension Last Admin: 01/11/21 06:06 Dose: 20 mg Documented by: Lorazepam (Lorazepam 0.5 Mg Tablet) 1 mg PO TIDP PRN PRN Reason: Nausea Lorazepam (Lorazepam 2 Mg/Ml Vial) 0.5 mg IV Q4-6HP PRN PRN Reason: PREVENT DYSTONIC REACTION Last Admin: 01/11/21 05:48 Dose: 0.5 mg Documented by: Metoclopramide HCl (Metoclopramide 10 Mg/2 Ml Vial) 10 mg IV Q6HP PRN PRN Reason: Nausea And Vomiting Non-Formulary Medication (Ketamine) 30 mg MUCOUS MEM Q6HP PRN PRN Reason: Nausea Nortriptyline HCl (Nortriptyline 10 Mg Capsule) 10 mg PO QHS [facility] Last Admin: 01/10/21 21:30 Dose: 10 mg Documented by: Ondansetron HCl (Ondansetron 4 Mg/2 Ml Vial) 4 mg IV Q4HP PRN PRN Reason: Nausea And Vomiting Last Admin: 01/11/21 00:55 Dose: 4 mg Documented by: Pantoprazole Sodium (Pantoprazole 40 Mg Vial) 40 mg IV QAMAC [facility] Potassium Chloride (Potassium Chloride 20 Meq Tablet) 40 meq PO UD PRN PRN Reason: Potssium is 3-3.5 Potassium Chloride (Potassium Chloride 20 Meq Tablet) 40 meq PO UD PRN PRN Reason: Potassium < 3 Promethazine HCl (Promethazine 25 Mg/Ml Vial) 12.5 mg IV Q4-6HP PRN PRN Reason: Nausea And Vomiting Last Admin: 01/11/21 05:59 Dose: 12.5 mg Documented by: Senna (Sennosides 1 Tablet) 2 tab PO DAILYP PRN PRN Reason: Constipation Sodium Chloride (0.9 % Sodium Chloride 10 Ml Syringe) 10 ml IV Q8 [facility] Last Admin: 01/11/21 06:07 Dose: Not Given Documented by: Sucralfate (Sucralfate 1 Gm Tablet) 1 gm PO Q6HP PRN PRN Reason: Nausea Venlafaxine HCl (Venlafaxine 150 Mg Cap.Xl.24h) 150 mg PO DAILY [facility] ABG Interpretation ABG results: 01/10/21 08:54 ABG Methemoglobin 0.3 L VBG pH 7.45 H VBG pCO2 44.1 VBG pO2 83.1 H VBG HCO3 29.6 H VBG Total CO2 31.0 H VBG O2 Saturation 91.6 H VBG Base Excess 5 H A/P Narrative A/P Narrative: A: *HHS/DKA overlap: *DM type I with Gastroparesis/Neuropathy: -A1c 6.5 *Hypovolemia: improving *hypokalemia/hypophos/mag: improved *HTN urgency: improved *?ROSALIO on CKD III (?baseline): was supposed to see nephrology in past but still has not seen one *Anemia, chronic *HTN: On clonidine/lisinopril *Anxiety/depression: On Ativan and venlafaxine *GERD: *leukcytosis: UA/cxr unremarkable, afebrile P: -Insulin gtt to home pump -IV fluids -Monitor electrolytes and replace -clear liquids, advance diet as able -Antiemetics -hold ACEI for ROSALIO, IV prn BP meds -f/u with nephrology -ppx: Lovenox/H2 Time Spent With Patient Time: Total time spent is greater than 50% in coordination of care (as documented) at patient's floor/unit and/or counseling patient: QUALITY VTE Deep Vein Thrombosis/Pulmonary Embolism Present on Admission: No
[2021-01-11] MEDS ORDERED: MAGNESIUM SULFATE 24.36 MEQ in DEXTROSE 5% IN WATER 50 ML IV ONE (08:18)
[2021-01-11] MEDS: ENOXAPARIN 40 MG/0.4 ML SYRINGE SQ SCH (08:24)
[2021-01-11] MEDS: PANTOPRAZOLE 40 MG VIAL IV SCH (08:25)
[2021-01-11] MEDS: DOCUSATE SODIUM 100 MG CAPSULE PO SCH ×2 (08:25→21:48)
[2021-01-11] MEDS: CARVEDILOL 3.125 MG TABLET PO SCH ×2 (08:25→17:01)
[2021-01-11] MEDS: CAPTOPRIL 12.5 MG TABLET PO SCH ×3 (08:28→21:49)
[2021-01-11] MEDS: VENLAFAXINE 150 MG CAP.XL.24H PO SCH (08:28)
[2021-01-11] MEDS ORDERED: ENOXAPARIN 40 MG/0.4 ML SYRINGE SQ SCH (09:00)
[2021-01-11 09:33] LABS: Lymphocytes % 10 % (15-49); Monocytes % (Manual) 4 % (1-12); Platelet Estimate NORMAL (Normal); RBC Morphology NORMAL (Normal); Segmented Neutrophils % 86 % (38-78)
[2021-01-11 09:47] LABS: Amphetamine Screen,Urine None detected; Barbiturate Screen,Urine None detected; Benzodiazepines Screen,Urine None detected; Cannabinoid Screen,Urine Suspect Positive; Cocaine Screen,Urine None detected; Opiate Screen,Urine None detected; Oxycodone, Urine Screen None detected; Phencyclidine Screen,Urine None detected
[2021-01-11 11:30] LABS: Lymphocytes % 12 % (15-49); Monocytes % (Manual) 3 % (1-12); Platelet Estimate NORMAL (Normal); RBC Morphology NORMAL (Normal); Segmented Neutrophils % 85 % (38-78)
--- NOTE | 2021-01-11 11:38 | Discharge Summary ---
Discharge Provider Provider Patient information: Note initiated : 01/11/21 at 11:37 am Service Date, if different from initiated Date: [] Patient: Mauri Levine 35 y/o M admitted on 01/10/21 for dka. Chief Complaint: [] Date of admission: 01/10/21 15:10 Consults: 01/10/21 Consult to Physician [CONS] Stat Comment: Consulting Provider: Deangelo Basilio Reason For Exam: Physician to Consult Discharge Meds Discharge Medications Home Medications insulin syringe-needle U-100 1/2 mL 31 gauge x 15/64" 03/27/15 [History Confirmed 03/25/19 Last Taken Unknown] glucagon (human recombinant) 1 mg injection kit 1 mg IM ONCE PRN #7 each 10/02/15 [Rx Confirmed 01/10/21 Last Taken Unknown] insulin lispro 100 unit/mL subcutaneous solution See Rx Instructions SUB-Q QDAY #10 ml 04/20/17 [Rx Confirmed 01/10/21 Last Taken 02/16/19 07:00] gabapentin 600 mg PO TIDP PRN 12/24/18 [History Confirmed 01/10/21 Last Taken 12/26/20 21:00] lorazepam 1 mg PO TID PRN 12/24/18 [History Confirmed 01/10/21 Last Taken 02/20/19 20:00] Diabetic Shoes 1 each .ROUTE DAILY 02/13/19 [History Confirmed 03/25/19 Last Taken Unknown] atorvastatin 40 mg PO HS 02/13/19 [History Confirmed 01/10/21 Last Taken 01/09/21 21:00] blood sugar diagnostic 02/13/19 [History Confirmed 03/25/19 Last Taken Unknown] blood-glucose meter 02/13/19 [History Confirmed 03/25/19 Last Taken Unknown] clonidine 0.2 mg TOPICAL WEEKLY 02/13/19 [History Confirmed 01/10/21 Last Taken 01/09/21 14:00] venlafaxine 150 mg PO DAILY 02/21/19 [History Confirmed 01/10/21 Last Taken 01/07/21 09:00] Ketamine 30 mg MUCOUS MEMBRANE Q6HP PRN 03/25/19 [History Confirmed 01/10/21 Last Taken 01/09/21 21:00] aluminum-mag hydroxide-simethicone 400 mg-400 mg-40 mg/5 mL oral susp 10 ml PO TID PRN 04/04/19 [History Confirmed 01/10/21 Last Taken 01/03/21] insulin glargine 100 unit/mL (3 mL) subcutaneous pen 10 unit SUB-Q QDAY PRN 04/04/19 [History Confirmed 01/10/21 Last Taken Unknown] multivitamin,qu-nkst-ipccuive 1 tab PO QDAY 04/04/19 [History Confirmed 01/10/21 Last Taken 01/07/21 09:00] nortriptyline 10 mg capsule 10 mg PO QHS 04/04/19 [History Confirmed 01/10/21 Last Taken Unknown] sucralfate 1 gram tablet 1 g PO Q6H PRN tab 04/04/19 [History Confirmed 01/10/21 Last Taken Unknown] captopril 12.5 mg tablet 6.25 mg PO BID #90 tab 04/09/19 [Rx Confirmed 01/10/21 Last Taken 01/09/21 21:00] ondansetron 4 mg SL Q4-6HP PRN #10 tab 12/30/19 [Rx Confirmed 01/10/21 Last Taken Unknown] carvedilol 3.125 mg PO BID 01/10/21 [History Confirmed 01/10/21 Last Taken 01/09/21 21:00] COURSE Hospital Course Hospital course: History of present illness: Mr. Levine is a 35 year old M Patient presents to the ED with nausea vomiting weakness for several days. He noticed earlier this morning that his insulin pump was out of insulin and he felt too sick to replace it came to the ED. His blood sugar is found to be 900. With a mild acute on chronic kidney disease. Patient denies any recent illnesses. His laboratory was consistent with a HHS/DKA overlap. Patient started on IV fluid and insulin drip. 01/11 Patient feeling a little better. No nausea vomiting. No diarrhea. Discussed patient insulin pump and he is post have some to bring it in so we can restart the pump and take off insulin drip. Patient was supposed to see nephrology the past but is still not seen one. A: *HHS/DKA overlap: *DM type I with Gastroparesis/Neuropathy: -A1c 6.5 *Hypovolemia: improving *hypokalemia/hypophos/mag: improved *HTN urgency: improved *?ROSALIO on CKD III (?baseline): was supposed to see nephrology in past but still has not seen one *Anemia, chronic *HTN: On clonidine/lisinopril *Anxiety/depression: On Ativan and venlafaxine *GERD: *leukcytosis: UA/cxr unremarkable, afebrile Discharge diagnosis: HHS/DKA hypovolemia electrolyte abnormalities hypertensive urgency Secondary discharge diagnosis: Diabetes type 1 acute on chronic kidney disease chronic anemia hypertension anxiety depression GERD Time Spent with Patient Time attestation: Total time spent providing and/or coordinating discharge services: Time spent: Greater than 30 minutes EXAM Constitutional Vitals: Temp Pulse Resp BP Pulse Ox 98.0 F 70 24 H 148/73 94 01/11/21 08:01 01/11/21 10:01 01/11/21 10:01 01/11/21 10:01 01/11/21 10:01 Discharge Data Data Completed and Pending Labs on day of discharge: Labs from last 24 hours 01/11/21 01/11/21 01/11/21 10:10 05:23 05:22 WBC 18.8 H RBC 3.77 L Hgb 10.9 L Hct 32.9 L POC Hct MCV 87.3 MCH 28.9 MCHC 33.1 RDW 13.7 Plt Count 177 MPV 11.9 H Neut % (Auto) 85.0 H Lymph % (Auto) 8.5 L Saline % (Auto) 6.1 Eos % (Auto) 0.1 Baso % (Auto) 0.3 Lymph # (Auto) 1.59 Saline # (Auto) 1.15 H Eos # (Auto) 0.01 Baso # (Auto) 0.06 Seg Neutrophils % 85 H 86 H Lymphocytes % 12 L 10 L Monocytes % (Manual) 3 4 Absolute Neutrophils 15.94 H Platelet Estimate Normal Normal RBC Morphology Normal Normal POC Sodium Sodium POC Potassium Potassium POC Chloride Chloride Carbon Dioxide POC Total CO2 Anion Gap POC BUN BUN Creatinine POC Creatinine GFR Calculation Glucose POC Glucose Hemoglobin A1c Estim Average Glucose Uric Acid Calcium POC WB Ioniz Calcium Phosphorus Magnesium Total Bilirubin Direct Bilirubin GGT AST ALT Alkaline Phosphatase Lactate Dehydrogenase Troponin T Total Protein Albumin Globulin Albumin/Globulin Ratio Triglycerides Urine Color Urine Appearance Urine pH Ur Specific [place] Urine Protein Urine Glucose (UA) Urine Ketones Urine Occult Blood Urine Nitrate Urine Bilirubin Urine Urobilinogen Ur Leukocyte Esterase Urine RBC Urine WBC Ur Squamous Epith Cells Urine Bacteria Hyaline Casts Urine Mucus Ur Culture Indicated? Ur Random Creatinine Ur Random Sodium Urine Opiates Screen Ur Opiates Confirm Ur Oxycodone Screen Urine Methadone Screen Ur Methadone Confirm Ur Barbiturates Screen Ur Barbiturate Confirm Ur Phencyclidine Scrn Urine PCP Confirm Ur Amphetamines Screen U Amphetamines Confirm U Benzodiazepines Scrn U Benzodiazepine Confm Urine Cocaine Screen Urine Cocaine Confirm U Cannabinoids Confirm U Marijuana (THC) Screen 01/11/21 01/11/21 01/11/21 05:22 01:07 01:07 WBC RBC Hgb Hct POC Hct MCV MCH MCHC RDW Plt Count MPV Neut % (Auto) Lymph % (Auto) Saline % (Auto) Eos % (Auto) Baso % (Auto) Lymph # (Auto) Saline # (Auto) Eos # (Auto) Baso # (Auto) Seg Neutrophils % Lymphocytes % Monocytes % (Manual) Absolute Neutrophils Platelet Estimate RBC Morphology POC Sodium Sodium 141 POC Potassium Potassium 3.2 L POC Chloride Chloride 98 Carbon Dioxide 33 H POC Total CO2 Anion Gap 10.0 POC BUN BUN 33 H Creatinine 2.9 H POC Creatinine GFR Calculation 27 Glucose 236 H POC Glucose Hemoglobin A1c Estim Average Glucose Uric Acid 5.9 Calcium 7.3 L POC WB Ioniz Calcium Phosphorus 3.0 Magnesium 1.5 L Total Bilirubin 0.3 Direct Bilirubin < 0.2 GGT 8 AST 19 ALT 9 Alkaline Phosphatase 102 Lactate Dehydrogenase 255 H Troponin T Total Protein 5.9 Albumin 3.4 Globulin 2.5 Albumin/Globulin Ratio 1.4 Triglycerides 50 Urine Color Urine Appearance Urine pH Ur Specific [place] Urine Protein Urine Glucose (UA) Urine Ketones Urine Occult Blood Urine Nitrate Urine Bilirubin Urine Urobilinogen Ur Leukocyte Esterase Urine RBC Urine WBC Ur Squamous Epith Cells Urine Bacteria Hyaline Casts Urine Mucus Ur Culture Indicated? Ur Random Creatinine 99.9 Ur Random Sodium 14 Urine Opiates Screen Ur Opiates Confirm Ur Oxycodone Screen Urine Methadone Screen Ur Methadone Confirm Ur Barbiturates Screen Ur Barbiturate Confirm Ur Phencyclidine Scrn Urine PCP Confirm Ur Amphetamines Screen U Amphetamines Confirm U Benzodiazepines Scrn U Benzodiazepine Confm Urine Cocaine Screen Urine Cocaine Confirm U Cannabinoids Confirm U Marijuana (THC) Screen 01/11/21 01/11/21 01/10/21 01:07 01:07 18:25 WBC RBC Hgb Hct POC Hct MCV MCH MCHC RDW Plt Count MPV Neut % (Auto) Lymph % (Auto) Saline % (Auto) Eos % (Auto) Baso % (Auto) Lymph # (Auto) Saline # (Auto) Eos # (Auto) Baso # (Auto) Seg Neutrophils % Lymphocytes % Monocytes % (Manual) Absolute Neutrophils Platelet Estimate RBC Morphology POC Sodium Sodium 141 POC Potassium Potassium 3.5 POC Chloride Chloride 95 L Carbon Dioxide 34 H POC Total CO2 Anion Gap 12.0 POC BUN BUN 38 H Creatinine 3.1 H POC Creatinine GFR Calculation 25 Glucose 315 H POC Glucose Hemoglobin A1c Estim Average Glucose Uric Acid Calcium 8.6 POC WB Ioniz Calcium Phosphorus 1.9 L Magnesium 1.9 Total Bilirubin Direct Bilirubin GGT AST ALT Alkaline Phosphatase Lactate Dehydrogenase Troponin T Total Protein Albumin Globulin Albumin/Globulin Ratio Triglycerides Urine Color Yellow Urine Appearance Hazy A Urine pH 5.0 Ur Specific [place] 1.015 Urine Protein 100 A Urine Glucose (UA) >=500 A Urine Ketones 5 A Urine Occult Blood 0.20 Urine Nitrate Negative Urine Bilirubin Negative Urine Urobilinogen Negative Ur Leukocyte Esterase Negative Urine RBC < 1 Urine WBC 6 H Ur Squamous Epith Cells 1 Urine Bacteria None Hyaline Casts 5 H Urine Mucus Few A Ur Culture Indicated? No Ur Random Creatinine Ur Random Sodium Urine Opiates Screen None detected Ur Opiates Confirm TNP Ur Oxycodone Screen None detected Urine Methadone Screen None detected Ur Methadone Confirm TNP Ur Barbiturates Screen None detected Ur Barbiturate Confirm TNP Ur Phencyclidine Scrn None detected Urine PCP Confirm TNP Ur Amphetamines Screen None detected U Amphetamines Confirm TNP U Benzodiazepines Scrn None detected U Benzodiazepine Confm TNP Urine Cocaine Screen None detected Urine Cocaine Confirm TNP U Cannabinoids Confirm Pending U Marijuana (THC) Screen Suspect positive A 01/10/21 01/10/21 01/10/21 12:18 12:18 08:54 WBC RBC Hgb Hct POC Hct 36 L MCV MCH MCHC RDW Plt Count MPV Neut % (Auto) Lymph % (Auto) Saline % (Auto) Eos % (Auto) Baso % (Auto) Lymph # (Auto) Saline # (Auto) Eos # (Auto) Baso # (Auto) Seg Neutrophils % Lymphocytes % Monocytes % (Manual) Absolute Neutrophils Platelet Estimate RBC Morphology POC Sodium 141 Sodium 140 POC Potassium 2.6 L* Potassium 2.6 L* POC Chloride 89 L Chloride 87 L Carbon Dioxide 30 POC Total CO2 30 Anion Gap 23.0 H POC BUN 36 H BUN 38 H Creatinine 3.0 H POC Creatinine 3.0 H GFR Calculation 26 Glucose 697 H* POC Glucose 700 H* Hemoglobin A1c 6.5 H Estim Average Glucose 140 Uric Acid Calcium 9.0 POC WB Ioniz Calcium 1.09 L Phosphorus Magnesium 1.8 Total Bilirubin Direct Bilirubin GGT AST ALT Alkaline Phosphatase Lactate Dehydrogenase Troponin T Total Protein Albumin Globulin Albumin/Globulin Ratio Triglycerides Urine Color Urine Appearance Urine pH Ur Specific [place] Urine Protein Urine Glucose (UA) Urine Ketones Urine Occult Blood Urine Nitrate Urine Bilirubin Urine Urobilinogen Ur Leukocyte Esterase Urine RBC Urine WBC Ur Squamous Epith Cells Urine Bacteria Hyaline Casts Urine Mucus Ur Culture Indicated? Ur Random Creatinine Ur Random Sodium Urine Opiates Screen Ur Opiates Confirm Ur Oxycodone Screen Urine Methadone Screen Ur Methadone Confirm Ur Barbiturates Screen Ur Barbiturate Confirm Ur Phencyclidine Scrn Urine PCP Confirm Ur Amphetamines Screen U Amphetamines Confirm U Benzodiazepines Scrn U Benzodiazepine Confm Urine Cocaine Screen Urine Cocaine Confirm U Cannabinoids Confirm U Marijuana (THC) Screen 01/10/21 08:54 WBC RBC Hgb Hct POC Hct MCV MCH MCHC RDW Plt Count MPV Neut % (Auto) Lymph % (Auto) Saline % (Auto) Eos % (Auto) Baso % (Auto) Lymph # (Auto) Saline # (Auto) Eos # (Auto) Baso # (Auto) Seg Neutrophils % Lymphocytes % Monocytes % (Manual) Absolute Neutrophils Platelet Estimate RBC Morphology POC Sodium Sodium POC Potassium Potassium POC Chloride Chloride Carbon Dioxide POC Total CO2 Anion Gap POC BUN BUN Creatinine POC Creatinine GFR Calculation Glucose POC Glucose Hemoglobin A1c Estim Average Glucose Uric Acid Calcium POC WB Ioniz Calcium Phosphorus Magnesium Total Bilirubin Direct Bilirubin GGT AST ALT Alkaline Phosphatase Lactate Dehydrogenase Troponin T 0.02 Total Protein Albumin Globulin Albumin/Globulin Ratio Triglycerides Urine Color Urine Appearance Urine pH Ur Specific [place] Urine Protein Urine Glucose (UA) Urine Ketones Urine Occult Blood Urine Nitrate Urine Bilirubin Urine Urobilinogen Ur Leukocyte Esterase Urine RBC Urine WBC Ur Squamous Epith Cells Urine Bacteria Hyaline Casts Urine Mucus Ur Culture Indicated? Ur Random Creatinine Ur Random Sodium Urine Opiates Screen Ur Opiates Confirm Ur Oxycodone Screen Urine Methadone Screen Ur Methadone Confirm Ur Barbiturates Screen Ur Barbiturate Confirm Ur Phencyclidine Scrn Urine PCP Confirm Ur Amphetamines Screen U Amphetamines Confirm U Benzodiazepines Scrn U Benzodiazepine Confm Urine Cocaine Screen Urine Cocaine Confirm U Cannabinoids Confirm U Marijuana (THC) Screen Discharge Plan Patient/Caregiver Discharge Instructions Activity: increase activity as tolerated Diet: Consistent Carbohydrate Activity Restrictions/Additional Instructions: Follow-up with PCP in 3 to 7 days Prescriptions: Continued insulin lispro [Humalog U-100 Insulin] 100 unit/mL solution See Rx Instructions SUB-Q QDAY Qty: 10 RF: 11 captopril 12.5 mg tablet 6.25 mg PO BID Qty: 90 RF: 0 (DME) insulin syringe-needle U-100 1/2 mL 31 x 15/64" syringe See Dose Instructions each .ROUTE .MEDSUPPLY RF: 0 glucagon (human recombinant) 1 mg kit 1 mg IM ONCE PRN (Reason: hypoglycemia) Qty: 7 RF: 0 Lantus Solostar U-100 Insulin 100 unit/mL (3 mL) insulin pen 10 unit SUB-Q QDAY PRN (Reason: Hyperglycemia) RF: 0 Complete Multivitamin tablet 1 tab PO QDAY RF: 0 nortriptyline 10 mg capsule 10 mg PO QHS RF: 0 sucralfate 1 gram tablet 1 g PO Q6H PRN (Reason: Nausea) RF: 0 alum-mag hydroxide-simeth 400-400-40 mg/5 mL suspension 10 ml PO TID PRN (Reason: Nausea) RF: 0 gabapentin 300 MG capsule 600 mg PO TIDP PRN (Reason: Pain) RF: 0 lorazepam 0.5 MG tablet 1 mg PO TID PRN (Reason: Anxiety) RF: 0 atorvastatin 40 MG tablet 40 mg PO HS RF: 0 clonidine 1 EACH patch weekly 0.2 mg topical WEEKLY RF: 0 (DME) blood-glucose meter 1 EACH misc 0 each .Route .MEDSUPPLY RF: 0 (DME) blood sugar diagnostic 1 EACH strip 0 each .Route .MEDSUPPLY MDD 4 RF: 0 Diabetic Shoes 1 each .Route DAILY RF: 0 venlafaxine 150 MG tablet extended release 24hr 150 mg PO DAILY RF: 0 Ketamine 30 mg mucous membrane Q6HP PRN (Reason: Nausea) RF: 0 ondansetron 4 MG tablet 4 mg SL Q4-6HP PRN (Reason: Nausea) Qty: 10 RF: 0 carvedilol 3.125 mg Tablet 3.125 mg PO BID RF: 0 Follow Up Plan Patient Disposition: Home, Self-Care Prognosis: Fair QUALITY VTE Deep Vein Thrombosis/Pulmonary Embolism Present on Admission: No
[2021-01-11] MEDS: hydrALAZINE 20 MG/ML VIAL IV PRN ×2 (11:47→17:54)
[2021-01-11] MEDS: cloNIDine HCL 0.1 MG TABLET PO PRN ×2 (12:37→22:09)
[2021-01-11] MEDS: LORazepam 0.5 MG TABLET PO PRN ×2 (12:42→17:53)
--- NOTE | 2021-01-11 16:47 | Ultrasound Report ---
CLINICAL INFORMATION: [facility] COMPARISON: None. FINDINGS: Both kidneys are normal and symmetric in size, position and configuration: The right is 10.6 x 5 cm and the left is 10.8 x 5.4 cm. Renal parenchyma is minimally echogenic. No focal solid cystic lesions, stones or hydronephrosis. Urinary bladder volume is 738 cc. No focal bladder lesions. The prostate is mildly enlarged. IMPRESSION: Mild hyperechoic kidneys suggestive of medical renal disease. Mild prostate enlargement Interpreted and Authenticated by: Demetrius Smart 01/11/21
[2021-01-11] MEDS: NORTRIPTYLINE 10 MG CAPSULE PO SCH (21:48)
[2021-01-11] MEDS: ATORVASTATIN 40 MG TABLET PO SCH (21:49)
[2021-01-12] MEDS: LABETALOL 5 MG/ML ML IV PRN (00:04)
[2021-01-12] MEDS: hydrALAZINE 20 MG/ML VIAL IV PRN ×7 (00:32→23:19)
[2021-01-12] MEDS: DEXTROSE 5%-1/2NS W/20MEQ KCL 1,000 ML IV SCH ×2 (01:03→07:10)
[2021-01-12] MEDS: 0.9 % SODIUM CHLORIDE 10 ML SYRINGE IV SCH ×4 (05:36→21:57)
[2021-01-12 06:51] LABS: Hematocrit 31.8 % (41.0-55.0); Hemoglobin 10.5 g/dL (13.5-16.5); Mean Cell Volume 88.3 fL (80.0-100.0); Mean Platelet Volume 12.1 fL (7.4-10.4); Platelet Count 155 K/mcL (140-440); Red Cell Distribution Width 14.2 % (11.5-14.5); WBC 13.5 K/mcL (4.5-11.0)
--- NOTE | 2021-01-12 07:25 | Internal Med Progress Note ---
SUBJECTIVE Subjective Patient information: Note initiated : 01/12/21 at 7:22 am Service Date, if different from initiated Date: [] Patient: Mauri Levine 35 y/o M admitted on 01/10/21 for dka. Chief Complaint: [] Interval history: History of present illness: Mr. Levine is a 35 year old M Patient presents to the ED with nausea vomiting weakness for several days. He noticed earlier this morning that his insulin pump was out of insulin and he felt too sick to replace it came to the ED. His blood sugar is found to be 900. With a mild acute on chronic kidney disease. Patient denies any recent illnesses. His laboratory was consistent with a HHS/DKA overlap. Patient started on IV fluid and insulin drip. 01/11 Patient feeling a little better. No nausea vomiting. No diarrhea. Discussed patient insulin pump and he is post have some to bring it in so we can restart the pump and take off insulin drip. Patient was supposed to see nephrology the past but is still not seen one. 01/12 Patient doing and feeling much better. Insulin pump brought in last night but do not have his home insulin. According with her pharmacy to obtain a vial and start his insulin pump now to make sure everything is working before discharge. Review of Systems: denies headache/fever/chills/nausea/vomiting/chest or abdominal pain/cough/dyspnea/diarrhea. Otherwise see above. Constitutional Vitals: Vital Signs Temp Pulse Resp BP Pulse Ox 98.2 F 84 17 151/69 95 01/12/21 04:01 01/11/21 23:00 01/12/21 06:03 01/12/21 06:03 01/12/21 06:03 Period Temp Pulse Resp BP Sys/Menard Pulse Ox Last 24 Hr 97.0 F-99.7 F 70-92 15-30 143-206/68-103 90-97 Intake and Output 01/11/21 01/12/21 01/12/21 21:59 05:59 13:59 Intake Total 1291 1034 7 Output Total 900 700 Balance 391 334 7 Weight 89.902 kg Intake & Output: Intake & Output 01/11/21 01/12/21 01/12/21 21:59 05:59 13:59 Intake Total 1291 1034 7 Output Total 900 700 Balance 391 334 7 Weight 89.902 kg Intake: IV 1291 1034 7 Sodium Chloride 0.9% 250 ml @ 250 20 mls/hr IV .[id number] [facility] Rx#: [id number] Dextrose 5%-1/2Ns W/20Meq KCl 1 1000 1000 ,000 ml @ 150 mls/hr IV .Q6H40M [facility] Rx#:[id number] HumuLIN R 50 UNIT In Sodium 41 34 7 Chloride 0.9% 99.5 ml @ 1 UNIT/ HR 2 mls/hr IV DUR [facility] Rx#: [id number] Output: Void Amount 825 700 Emesis 75 Other: Urine Appearance Clear Clear Urine Color Bright Yellow Bright Yellow Urine Odor Normal Stool Consistency Formed Loose # Bowel Movements 1 Exam: General: Alert, Awake, No acute Distress Eyes/N/T: EOMI, Head/Neck: neck supple, CV: RRR, No murmurs, Pulm: Clear b/l, no wheezing/rhonchi/rales Abd: soft, nontender, +BS x4 Ext: no clubbing/cyanosis/edema Neuro: Alert, no focal deficits, moves all extremities, Skin: warm/dry OBJ DATA Labs CBC & Chem 7: 01/12/21 05:24 01/12/21 05:24 Labs: Abnormal Lab Results 01/12/21 01/11/21 01/11/21 05:24 10:10 05:23 WBC 13.5 H 18.8 H RBC 3.60 L 3.77 L Hgb 10.5 L 10.9 L Hct 31.8 L 32.9 L POC Hct MPV 12.1 H 11.9 H Neut % (Auto) 85.0 H Lymph % (Auto) 8.5 L Lymph # (Auto) [place] # (Auto) 1.15 H Seg Neutrophils % 85 H Lymphocytes % 12 L Absolute Neutrophils 15.94 H ABG Methemoglobin VBG pH VBG pO2 VBG HCO3 VBG Total CO2 VBG O2 Saturation VBG Base Excess Carboxyhemoglobin Total Hemoglobin POC Potassium Potassium POC Chloride Chloride Carbon Dioxide Anion Gap POC BUN BUN Creatinine POC Creatinine Glucose POC Glucose Hemoglobin A1c Calcium POC WB Ioniz Calcium Phosphorus Magnesium Alkaline Phosphatase Lactate Dehydrogenase Beta-Hydroxybutyrate Urine Appearance Urine Protein Urine Glucose (UA) Urine Ketones Urine WBC Hyaline Casts Urine Mucus U Marijuana (THC) Screen 01/11/21 01/11/21 01/11/21 05:22 05:22 01:07 WBC RBC Hgb Hct POC Hct MPV Neut % (Auto) Lymph % (Auto) Lymph # (Auto) [place] # (Auto) Seg Neutrophils % 86 H Lymphocytes % 10 L Absolute Neutrophils ABG Methemoglobin VBG pH VBG pO2 VBG HCO3 VBG Total CO2 VBG O2 Saturation VBG Base Excess Carboxyhemoglobin Total Hemoglobin POC Potassium Potassium 3.2 L POC Chloride Chloride Carbon Dioxide 33 H Anion Gap POC BUN BUN 33 H Creatinine 2.9 H POC Creatinine Glucose 236 H POC Glucose Hemoglobin A1c Calcium 7.3 L POC WB Ioniz Calcium Phosphorus Magnesium 1.5 L Alkaline Phosphatase Lactate Dehydrogenase 255 H Beta-Hydroxybutyrate Urine Appearance Urine Protein Urine Glucose (UA) Urine Ketones Urine WBC Hyaline Casts Urine Mucus U Marijuana (THC) Screen Suspect positive A 01/11/21 01/10/21 01/10/21 01:07 18:25 12:18 WBC RBC Hgb Hct POC Hct MPV Neut % (Auto) Lymph % (Auto) Lymph # (Auto) [place] # (Auto) Seg Neutrophils % Lymphocytes % Absolute Neutrophils ABG Methemoglobin VBG pH VBG pO2 VBG HCO3 VBG Total CO2 VBG O2 Saturation VBG Base Excess Carboxyhemoglobin Total Hemoglobin POC Potassium Potassium 2.6 L* POC Chloride Chloride 95 L 87 L Carbon Dioxide 34 H Anion Gap 23.0 H POC BUN BUN 38 H 38 H Creatinine 3.1 H 3.0 H POC Creatinine Glucose 315 H 697 H* POC Glucose Hemoglobin A1c Calcium POC WB Ioniz Calcium Phosphorus 1.9 L Magnesium Alkaline Phosphatase Lactate Dehydrogenase Beta-Hydroxybutyrate Urine Appearance Hazy A Urine Protein 100 A Urine Glucose (UA) >=500 A Urine Ketones 5 A Urine WBC 6 H Hyaline Casts 5 H Urine Mucus Few A U Marijuana (THC) Screen 01/10/21 01/10/21 01/10/21 12:18 08:54 08:54 WBC RBC Hgb Hct POC Hct 36 L MPV Neut % (Auto) Lymph % (Auto) Lymph # (Auto) [place] # (Auto) Seg Neutrophils % Lymphocytes % Absolute Neutrophils ABG Methemoglobin 0.3 L VBG pH 7.45 H VBG pO2 83.1 H VBG HCO3 29.6 H VBG Total CO2 31.0 H VBG O2 Saturation 91.6 H VBG Base Excess 5 H Carboxyhemoglobin 4.8 H Total Hemoglobin 12.1 L POC Potassium 2.6 L* Potassium POC Chloride 89 L Chloride Carbon Dioxide Anion Gap POC BUN 36 H BUN Creatinine POC Creatinine 3.0 H Glucose POC Glucose 700 H* Hemoglobin A1c 6.5 H Calcium POC WB Ioniz Calcium 1.09 L Phosphorus Magnesium Alkaline Phosphatase Lactate Dehydrogenase Beta-Hydroxybutyrate Urine Appearance Urine Protein Urine Glucose (UA) Urine Ketones Urine WBC Hyaline Casts Urine Mucus U Marijuana (THC) Screen 01/10/21 01/10/21 08:54 08:54 WBC 13.8 H RBC 4.23 L Hgb 12.2 L Hct 38.3 L POC Hct MPV 12.5 H Neut % (Auto) 92.3 H Lymph % (Auto) 3.3 L Lymph # (Auto) 0.46 L [place] # (Auto) Seg Neutrophils % Lymphocytes % Absolute Neutrophils 12.70 H ABG Methemoglobin VBG pH VBG pO2 VBG HCO3 VBG Total CO2 VBG O2 Saturation VBG Base Excess Carboxyhemoglobin Total Hemoglobin POC Potassium Potassium POC Chloride 87 L Chloride 83 L Carbon Dioxide Anion Gap 29.0 H POC BUN 35 H BUN 33 H Creatinine 2.4 H POC Creatinine 2.7 H Glucose 898 H* POC Glucose 700 H* Hemoglobin A1c Calcium POC WB Ioniz Calcium 1.04 L Phosphorus Magnesium Alkaline Phosphatase 137 H Lactate Dehydrogenase Beta-Hydroxybutyrate 7.08 H Urine Appearance Urine Protein Urine Glucose (UA) Urine Ketones Urine WBC Hyaline Casts Urine Mucus U Marijuana (THC) Screen Meds: Medications Acetaminophen (Acetaminophen 325 Mg Tablet) 650 mg PO Q6HP PRN PRN Reason: PAIN/FEVER > 101 Hydrocodone Bitart/Acetaminophen (Hydrocodone/Apap 5/325mg Tablet) 1 tab PO Q4HP PRN PRN Reason: PAIN LEVEL 3-6 Al Hydrox/Mg Hydrox/Simethicone (Mag Hydrox/Al Hydrox/Simeth 30 Ml Oral.Susp) 10 ml PO TIDP PRN PRN Reason: Nausea Last Admin: 01/11/21 05:58 Dose: 10 ml Documented by: Albuterol/Ipratropium (Ipratropium/Albuterol 3 Ml Ampul.Neb) 3 ml NEB Q4HP PRN PRN Reason: Shortness Of Breath Atorvastatin Calcium (Atorvastatin 40 Mg Tablet) 40 mg PO HS [facility] Last Admin: 01/11/21 21:49 Dose: 40 mg Documented by: Captopril (Captopril 12.5 Mg Tablet) 6.25 mg PO BID [facility] Last Admin: 01/11/21 21:49 Dose: 6.25 mg Documented by: Carvedilol (Carvedilol 3.125 Mg Tablet) [facility] Last Admin: 01/11/21 17:01 Dose: 3.125 mg Documented by: Clonidine HCl (Clonidine Hcl 0.1 Mg Tablet) 0.1 mg PO Q4HP PRN PRN Reason: Hypertension sbp>160 Last Admin: 01/11/21 22:09 Dose: 0.1 mg Documented by: Diagnostic Test (Pha) (Accu-Chek 1 Each Strip) 1 each FS Q1 [facility] Last Admin: 01/12/21 07:09 Dose: 1 each Documented by: Diphenhydramine HCl (Diphenhydramine 50 Mg/Ml Vial) 25 mg IV Q4-6HP PRN PRN Reason: PREVENT DYSTONIC REACTION Last Admin: 01/11/21 22:00 Dose: 25 mg Documented by: Docusate Sodium (Docusate Sodium 100 Mg Capsule) 100 mg PO BID [facility] Last Admin: 01/11/21 21:48 Dose: Not Given Documented by: Enoxaparin Sodium (Enoxaparin 40 Mg/0.4 Ml Syringe) 40 mg SQ DAILY [facility] Last Admin: 01/11/21 08:24 Dose: 40 mg Documented by: Gabapentin (Gabapentin 300 Mg Capsule) 300 mg PO TIDP PRN PRN Reason: Pain Hydralazine HCl (Hydralazine 20 Mg/Ml Vial) 0 mg IV Q2HP PRN PRN Reason: Hypertension Last Admin: 01/12/21 02:56 Dose: 20 mg Documented by: Magnesium Sulfate (Magnesium Sulfate) 2 gm in 50 mls @ 50 mls/hr IV UD PRN PRN Reason: Magnesium </= 1.6 Last Infusion: 01/11/21 09:25 Dose: Infused Documented by: Potassium Chloride 40 meq/ (Dextrose) 520 mls @ 130 mls/hr IV UD PRN PRN Reason: Potassium < 3 Insulin Human Regular 50 unit/ (Sodium Chloride) 100 mls @ 2 mls/hr IV DUR [facility]; Protocol Last Titration: 01/12/21 07:13 Dose: 2 unit/hr, 4 mls/hr Documented by: Sodium Chloride (Sodium Chloride 0.9%) 250 mls @ 20 mls/hr IV .[id number] [facility] Last Admin: 01/11/21 19:00 Dose: 20 mls/hr Documented by: Potassium Chloride/Dextrose/Sod Cl (Dextrose 5%-1/2ns W/20meq Kcl) 1,000 mls @ 150 mls/hr IV .Q6H40M [facility] Last Admin: 01/12/21 07:10 Dose: Not Given Documented by: Labetalol HCl (Labetalol 5 Mg/Ml Ml) 0 mg IV Q2HP PRN PRN Reason: Hypertension Last Admin: 01/12/21 00:04 Dose: 20 mg Documented by: Lorazepam (Lorazepam 0.5 Mg Tablet) 1 mg PO TIDP PRN PRN Reason: Nausea Last Admin: 01/11/21 17:53 Dose: 1 mg Documented by: Lorazepam (Lorazepam 2 Mg/Ml Vial) 0.5 mg IV Q4-6HP PRN PRN Reason: PREVENT DYSTONIC REACTION Last Admin: 01/11/21 22:00 Dose: 0.5 mg Documented by: Metoclopramide HCl (Metoclopramide 10 Mg/2 Ml Vial) 10 mg IV Q6HP PRN PRN Reason: Nausea And Vomiting Nortriptyline HCl (Nortriptyline 10 Mg Capsule) 10 mg PO QHS [facility] Last Admin: 01/11/21 21:48 Dose: 10 mg Documented by: Ondansetron HCl (Ondansetron 4 Mg/2 Ml Vial) 4 mg IV Q4HP PRN PRN Reason: Nausea And Vomiting Last Admin: 01/11/21 19:32 Dose: 4 mg Documented by: Pantoprazole Sodium (Pantopraz[facility] 40 Mg [facility]ial) [facility] Last Admin: 01/11/21 08:25 Dose: 40 mg Documented by: Potassium Chloride (Potassium Chloride 20 Meq Tablet) 40 meq PO UD PRN PRN Reason: Potssium is 3-3.5 Potassium Chloride (Potassium Chloride 20 Meq Tablet) 40 meq PO UD PRN PRN Reason: Potassium < 3 Promethazine HCl (Promethazine 25 Mg/Ml Vial) 12.5 mg IV Q4-6HP PRN PRN Reason: Nausea And Vomiting Last Admin: 01/11/21 22:00 Dose: 12.5 mg Documented by: Senna (Sennosides 1 Tablet) 2 tab PO DAILYP PRN PRN Reason: Constipation Sodium Chloride (0.9 % Sodium Chloride 10 Ml Syringe) 10 ml IV Q8 [facility] Last Admin: 01/12/21 05:36 Dose: Not Given Documented by: Sucralfate (Sucralfate 1 Gm Tablet) 1 gm PO Q6HP PRN PRN Reason: Nausea Venlafaxine HCl (Venlafaxine 150 Mg Cap.Xl.24h) 150 mg PO DAILY [facility] Last Admin: 01/11/21 08:28 Dose: 150 mg Documented by: ABG Interpretation ABG results: 01/10/21 08:54 ABG Methemoglobin 0.3 L VBG pH 7.45 H VBG pCO2 44.1 VBG pO2 83.1 H VBG HCO3 29.6 H VBG Total CO2 31.0 H VBG O2 Saturation 91.6 H VBG Base Excess 5 H A/P Narrative A/P Narrative: A: *HHS/DKA overlap: *DM type I with Gastroparesis/Neuropathy: -A1c 6.5 *Hypovolemia: improving *hypokalemia/hypophos/mag: improved *HTN urgency: improved *?ROSALIO on CKD III (?baseline): was supposed to see nephrology in past but still has not seen one -improved *Anemia, chronic *HTN: On clonidine/lisinopril *Anxiety/depression: On Ativan and venlafaxine *GERD: *leukcytosis: UA/cxr unremarkable, afebrile P: -Insulin gtt, awaiting pump to be set up, father brought in pump last night -Monitor electrolytes and replace -full liquids, advance diet as able -Antiemetics -clonidine/BB, restart ACEI, IV prn BP meds -f/u with nephrology -ppx: Lovenox/H2 Time Spent With Patient Time: Total time spent is greater than 50% in coordination of care (as documented) at patient's floor/unit and/or counseling patient: QUALITY VTE Deep Vein Thrombosis/Pulmonary Embolism Present on Admission: No
[2021-01-12 07:50] LABS: ALT/SGPT 12 U/L (<40); AST/SGOT 19 U/L (<40); Albumin 3.5 gm/dL (3.2-5.2); Albumin/Globulin Ratio 1.5 (1.0-2.3); Alkaline Phosphatase 97 U/L (39-117); Bilirubin,Direct < 0.2 mg/dL (0-0.3); Bilirubin,Total 0.2 mg/dL (0.1-1.0); Blood Urea Nitrogen 17 mg/dL (6-20); Calcium 7.5 mg/dL (8.6-10.4); Carbon Dioxide 26 mmol/L (22-30); Chloride 104 mmol/L (96-108); Globulin 2.4 gm/dL (2.2-3.7); Glomerular Filtration Rate 42; Glucose 235 mg/dL (70-105); Lactate Dehydrogenase 280 U/L (135-225); Phosphorous 1.7 mg/dL (2.5-4.5); Triglycerides 58 mg/dL (<150); Uric Acid 4.1 mg/dL (2.5-8.0)
[2021-01-12 07:56] LABS: Hypochromasia 1+ (None Seen); Lymphocytes % 8 % (15-49); Monocytes % (Manual) 7 % (1-12); Platelet Estimate NORMAL (Normal); RBC Morphology ABNORMAL (Normal); Segmented Neutrophils % 85 % (38-78)
[2021-01-12] MEDS: VENLAFAXINE 150 MG CAP.XL.24H PO SCH (07:58)
[2021-01-12] MEDS: CAPTOPRIL 12.5 MG TABLET PO SCH ×2 (07:58→22:03)
[2021-01-12] MEDS: PANTOPRAZOLE 40 MG VIAL IV SCH (07:58)
[2021-01-12] MEDS: ENOXAPARIN 40 MG/0.4 ML SYRINGE SQ SCH (07:59)
[2021-01-12] MEDS: CARVEDILOL 3.125 MG TABLET PO SCH ×2 (07:59→17:48)
[2021-01-12] MEDS: DOCUSATE SODIUM 100 MG CAPSULE PO SCH ×2 (07:59→22:03)
[2021-01-12] MEDS ORDERED: CARVEDILOL 3.125 MG TABLET PO ONE (08:27)
[2021-01-12] MEDS: 0.9 % SODIUM CHLORIDE 250 ML IV SCH (08:42)
[2021-01-12] MEDS ORDERED: INSULIN LISPRO 1 UNIT/0.01 ML UNIT SQ SCH (09:00)
[2021-01-12] MEDS ORDERED: INSULIN LISPRO 1 UNIT/0.01 ML UNIT SQ ONE (09:00)
[2021-01-12] MEDS ORDERED: NEUTRA PHOS 1 PACKET PO SCH ×2 (09:00→21:00)
[2021-01-12] MEDS ORDERED: PHOSPHORUS 250 MG TABLET PO SCH (09:00)
[2021-01-12] MEDS ORDERED: NON FORMULARY MEDICATION 1 DOSE MISCELL SC SCH (09:00)
[2021-01-12] MEDS: LORazepam 0.5 MG TABLET PO PRN ×2 (11:22→16:07)
[2021-01-12] MEDS: PROMETHAZINE 25 MG/ML VIAL IV PRN ×3 (11:22→23:20)
[2021-01-12] MEDS: diphenhydrAMINE 50 MG/ML VIAL IV PRN ×3 (11:23→23:20)
[2021-01-12] MEDS ORDERED: POTASSIUM CHLORIDE 20 MEQ TABLET PO PRN ×2 (16:27)
[2021-01-12] MEDS ORDERED: LABETALOL 5 MG/ML ML IV PRN (16:27)
[2021-01-12] MEDS ORDERED: LORazepam 2 MG/ML VIAL IV PRN (16:27)
[2021-01-12] MEDS ORDERED: SUCRALFATE 1 GM TABLET PO PRN (16:27)
[2021-01-12] MEDS ORDERED: cloNIDine HCL 0.1 MG TABLET PO PRN (16:27)
[2021-01-12] MEDS ORDERED: LORazepam 0.5 MG TABLET PO PRN (16:27)
[2021-01-12] MEDS ORDERED: SENNOSIDES 1 TABLET PO PRN (16:27)
[2021-01-12] MEDS ORDERED: MAG HYDROX/AL HYDROX/SIMETH 30 ML ORAL.SUSP PO PRN (16:27)
[2021-01-12] MEDS ORDERED: MAGNESIUM SULFATE 2 GM/50 ML BAG IV PRN (16:27)
[2021-01-12] MEDS ORDERED: GABAPENTIN 300 MG CAPSULE PO PRN (16:27)
[2021-01-12] MEDS ORDERED: HYDROcodone/APAP 5/325MG TABLET PO PRN (16:27)
[2021-01-12] MEDS ORDERED: ACETAMINOPHEN 325 MG TABLET PO PRN (16:27)
[2021-01-12] MEDS ORDERED: 0.9 % SODIUM CHLORIDE 250 ML IV SCH (16:27)
[2021-01-12] MEDS ORDERED: METOCLOPRAMIDE 10 MG/2 ML VIAL IV PRN (16:27)
[2021-01-12] MEDS ORDERED: IPRATROPIUM/ALBUTEROL 3 ML AMPUL.NEB NEB PRN (16:27)
[2021-01-12] MEDS ORDERED: INSULIN REGULAR, HUMAN 50 UNIT in 0.9 % SODIUM CHLORIDE 99.5 ML IV SCH (16:27)
[2021-01-12] MEDS ORDERED: POTASSIUM CHLORIDE 40 MEQ in DEXTROSE 5% IN WATER 500 ML IV PRN (16:27)
[2021-01-12] MEDS ORDERED: CARVEDILOL 3.125 MG TABLET PO SCH ×2 (17:30)
[2021-01-12] MEDS ORDERED: ATORVASTATIN 40 MG TABLET PO SCH (21:00)
[2021-01-12] MEDS ORDERED: NORTRIPTYLINE 10 MG CAPSULE PO SCH (21:00)
[2021-01-12] MEDS: ONDANSETRON 4 MG/2 ML VIAL IV PRN (22:00)
[2021-01-12] MEDS: PHOSPHORUS 250 MG TABLET PO SCH (22:01)
[2021-01-13] MEDS: hydrALAZINE 20 MG/ML VIAL IV PRN ×4 (00:56→11:58)
[2021-01-13] MEDS: ONDANSETRON 4 MG/2 ML VIAL IV PRN (03:08)
[2021-01-13] MEDS: diphenhydrAMINE 50 MG/ML VIAL IV PRN (05:13)
[2021-01-13] MEDS: PROMETHAZINE 25 MG/ML VIAL IV PRN ×2 (05:14→20:15)
[2021-01-13] MEDS: 0.9 % SODIUM CHLORIDE 10 ML SYRINGE IV SCH ×3 (05:51→20:34)
[2021-01-13 06:08] LABS: Basophils # (Auto) 0.06 K/mcL (0.00-0.20); Basophils % (Auto) 0.4 % (0.0-2.0); Eosinophils # (Auto) 0.03 K/mcL (0.00-0.70); Eosinophils % (Auto) 0.2 % (0.0-7.0); Hematocrit 37.2 % (41.0-55.0); Hemoglobin 12.3 g/dL (13.5-16.5); Lymphocytes # (Auto) 1.41 K/mcL (1.50-4.80); Lymphocytes % (Auto) 9.7 % (15.0-49.0); Mean Corpuscular HGB Conc 33.1 g/dL (31.0-36.0); Mean Platelet Volume 12.2 fL (7.4-10.4); Monocytes # (Auto) 1.08 K/mcL (0.10-0.90); Monocytes % (Auto) 7.4 % (1.0-12.0); Neutrophils % (Auto) 82.3 % (38.0-78.0); Platelet Count 180 K/mcL (140-440); RBC 4.18 M/mcL (4.50-5.90); Red Cell Distribution Width 14.5 % (11.5-14.5); WBC 14.5 K/mcL (4.5-11.0)
[2021-01-13] MEDS ORDERED: 0.9 % SODIUM CHLORIDE 1,000 ML IV SCH (07:00)
[2021-01-13 07:01] LABS: ALT/SGPT 11 U/L (<40); AST/SGOT 16 U/L (<40); Albumin 3.5 gm/dL (3.2-5.2); Albumin/Globulin Ratio 1.1 (1.0-2.3); Alkaline Phosphatase 125 U/L (39-117); Bilirubin,Direct < 0.2 mg/dL (0-0.3); Bilirubin,Total 0.5 mg/dL (0.1-1.0); Blood Urea Nitrogen 14 mg/dL (6-20); Calcium 8.6 mg/dL (8.6-10.4); Carbon Dioxide 26 mmol/L (22-30); Chloride 104 mmol/L (96-108); Globulin 3.3 gm/dL (2.2-3.7); Glomerular Filtration Rate 51; Glucose 101 mg/dL (70-105); Lactate Dehydrogenase 334 U/L (135-225); Phosphorous 1.9 mg/dL (2.5-4.5); Triglycerides 79 mg/dL (<150); Uric Acid 3.2 mg/dL (2.5-8.0)
[2021-01-13] MEDS ORDERED: PANTOPRAZOLE 40 MG VIAL IV SCH (07:30)
[2021-01-13] MEDS: CAPTOPRIL 12.5 MG TABLET PO SCH ×2 (08:36→20:16)
[2021-01-13] MEDS: PHOSPHORUS 250 MG TABLET PO SCH (08:37)
[2021-01-13] MEDS: CARVEDILOL 3.125 MG TABLET PO SCH ×2 (08:37→17:21)
[2021-01-13] MEDS: DOCUSATE SODIUM 100 MG CAPSULE PO SCH ×2 (08:38→20:15)
[2021-01-13] MEDS ORDERED: ENOXAPARIN 40 MG/0.4 ML SYRINGE SQ SCH (09:00)
[2021-01-13] MEDS ORDERED: INSULIN PUMP SC SCH (09:00)
[2021-01-13] MEDS ORDERED: VENLAFAXINE 150 MG CAP.XL.24H PO SCH (09:00)
--- NOTE | 2021-01-13 12:49 | Internal Med Progress Note ---
SUBJECTIVE Subjective Patient information: Note initiated : 01/13/21 at 12:42 pm Service Date, if different from initiated Date: [] Patient: Mauri Levine 35 y/o M admitted on 01/10/21 for dka. Chief Complaint: DKA Constitutional Vitals: Vital Signs Temp Pulse Resp BP Pulse Ox 99.9 F H 105 H 22 182/106 94 01/13/21 12:00 01/13/21 07:30 01/13/21 12:00 01/13/21 11:58 01/13/21 07:30 Period Temp Pulse Resp BP Sys/Menard Pulse Ox Last 24 Hr 96.6 F-99.9 F 89-105 16-52 117-205/58-143 92-98 Intake and Output 01/12/21 01/13/21 01/13/21 21:59 05:59 13:59 Intake Total 200 Output Total 1375 400 275 Balance -1175 -400 -275 Weight 87.09 kg Intake & Output: Intake & Output 01/12/21 01/13/21 01/13/21 21:59 05:59 13:59 Intake Total 200 Output Total 1375 400 275 Balance -1175 -400 -275 Weight 87.09 kg Intake: IV 0 Dextrose 5%-1/2Ns W/20Meq KCl 1 0 ,000 ml @ 150 mls/hr IV .Q6H40M [facility] Rx#:[id number] HumuLIN R 50 UNIT In Sodium 0 Chloride 0.9% 99.5 ml @ 1 UNIT/ HR 2 mls/hr IV DUR [facility] Rx#: [id number] Oral 200 Output: Void Amount 1300 325 275 Emesis 75 75 Other: Meal Breakfast Percent of Meal Consumed 0% Urine Appearance Clear Clear Urine Color Bright Yellow Bright Yellow Pale Urine Odor Normal Normal General appearance: cooperative and no acute distress Head Head exam: Present atraumatic, normal inspection and normocephalic Eye Eye exam: Present EOMI, normal appearance and PERRL Neck Neck exam: Present full ROM and normal inspection Respiratory Respiratory exam: Present normal respiratory exam and CTAB Cardiovascular Cardiovascular exam: Present normal rate and rhythm, +S1 and +S2; Absent diastolic murmur and systolic murmur GI/Abdominal GI/Abdominal exam: Present normal bowel sounds (Insulin pump in place. Gastric pump palpable on physical exam.) and soft; Absent hernia, mass, rebound and tenderness Extremities Exam Extremities exam: Present full ROM, normal capillary refill and normal inspec tion; Absent calf tenderness and joint swelling Back Exam Back exam: Present full ROM Neurological Exam Neurological exam: Present alert, CN II-XII intact, oriented X3 and reflexes normal Psychiatric Psychiatric exam: Present normal affect and normal mood Skin Skin exam: Present dry, normal color and warm OBJ DATA Labs CBC & Chem 7: 01/13/21 04:54 01/13/21 04:54 Labs: Abnormal Lab Results 01/13/21 01/13/21 01/12/21 04:54 04:54 05:24 WBC 14.5 H RBC 4.18 L Hgb 12.3 L Hct 37.2 L POC Hct MPV 12.2 H Neut % (Auto) 82.3 H Lymph % (Auto) 9.7 L Lymph # (Auto) 1.41 L [place] # (Auto) 1.08 H Seg Neutrophils % Lymphocytes % Absolute Neutrophils 11.92 H RBC Morphology Hypochromasia POC Potassium Potassium POC Chloride Chloride Carbon Dioxide Anion Gap POC BUN BUN Creatinine 1.7 H 2.0 H POC Creatinine Glucose 235 H POC Glucose Hemoglobin A1c Calcium 7.5 L POC WB Ioniz Calcium Phosphorus 1.9 L 1.7 L Magnesium Alkaline Phosphatase 125 H Lactate Dehydrogenase 334 H 280 H Urine Appearance Urine Protein Urine Glucose (UA) Urine Ketones Urine WBC Hyaline Casts Urine Mucus U Marijuana (THC) Screen 01/12/21 01/11/21 01/11/21 05:24 10:10 05:23 WBC 13.5 H 18.8 H RBC 3.60 L 3.77 L Hgb 10.5 L 10.9 L Hct 31.8 L 32.9 L POC Hct MPV 12.1 H 11.9 H Neut % (Auto) 85.0 H Lymph % (Auto) 8.5 L Lymph # (Auto) [place] # (Auto) 1.15 H Seg Neutrophils % 85 H 85 H Lymphocytes % 8 L 12 L Absolute Neutrophils 15.94 H RBC Morphology Abnormal A Hypochromasia 1+ A POC Potassium Potassium POC Chloride Chloride Carbon Dioxide Anion Gap POC BUN BUN Creatinine POC Creatinine Glucose POC Glucose Hemoglobin A1c Calcium POC WB Ioniz Calcium Phosphorus Magnesium Alkaline Phosphatase Lactate Dehydrogenase Urine Appearance Urine Protein Urine Glucose (UA) Urine Ketones Urine WBC Hyaline Casts Urine Mucus U Marijuana (THC) Screen 01/11/21 01/11/21 01/11/21 05:22 05:22 01:07 WBC RBC Hgb Hct POC Hct MPV Neut % (Auto) Lymph % (Auto) Lymph # (Auto) [place] # (Auto) Seg Neutrophils % 86 H Lymphocytes % 10 L Absolute Neutrophils RBC Morphology Hypochromasia POC Potassium Potassium 3.2 L POC Chloride Chloride Carbon Dioxide 33 H Anion Gap POC BUN BUN 33 H Creatinine 2.9 H POC Creatinine Glucose 236 H POC Glucose Hemoglobin A1c Calcium 7.3 L POC WB Ioniz Calcium Phosphorus Magnesium 1.5 L Alkaline Phosphatase Lactate Dehydrogenase 255 H Urine Appearance Urine Protein Urine Glucose (UA) Urine Ketones Urine WBC Hyaline Casts Urine Mucus U Marijuana (THC) Screen Suspect positive A 01/11/21 01/10/21 01/10/21 01:07 18:25 12:18 WBC RBC Hgb Hct POC Hct MPV Neut % (Auto) Lymph % (Auto) Lymph # (Auto) [place] # (Auto) Seg Neutrophils % Lymphocytes % Absolute Neutrophils RBC Morphology Hypochromasia POC Potassium Potassium 2.6 L* POC Chloride Chloride 95 L 87 L Carbon Dioxide 34 H Anion Gap 23.0 H POC BUN BUN 38 H 38 H Creatinine 3.1 H 3.0 H POC Creatinine Glucose 315 H 697 H* POC Glucose Hemoglobin A1c Calcium POC WB Ioniz Calcium Phosphorus 1.9 L Magnesium Alkaline Phosphatase Lactate Dehydrogenase Urine Appearance Hazy A Urine Protein 100 A Urine Glucose (UA) >=500 A Urine Ketones 5 A Urine WBC 6 H Hyaline Casts 5 H Urine Mucus Few A U Marijuana (THC) Screen 01/10/21 01/10/21 12:18 08:54 WBC RBC Hgb Hct POC Hct 36 L MPV Neut % (Auto) Lymph % (Auto) Lymph # (Auto) [place] # (Auto) Seg Neutrophils % Lymphocytes % Absolute Neutrophils RBC Morphology Hypochromasia POC Potassium 2.6 L* Potassium POC Chloride 89 L Chloride Carbon Dioxide Anion Gap POC BUN 36 H BUN Creatinine POC Creatinine 3.0 H Glucose POC Glucose 700 H* Hemoglobin A1c 6.5 H Calcium POC WB Ioniz Calcium 1.09 L Phosphorus Magnesium Alkaline Phosphatase Lactate Dehydrogenase Urine Appearance Urine Protein Urine Glucose (UA) Urine Ketones Urine WBC Hyaline Casts Urine Mucus U Marijuana (THC) Screen Meds: Medications Acetaminophen (Acetaminophen 325 Mg Tablet) 650 mg PO Q6HP PRN PRN Reason: PAIN/FEVER > 101 Hydrocodone Bitart/Acetaminophen (Hydrocodone/Apap 5/325mg Tablet) 1 tab PO Q4HP PRN PRN Reason: PAIN LEVEL 3-6 Al Hydrox/Mg Hydrox/Simethicone (Mag Hydrox/Al Hydrox/Simeth 30 Ml Oral.Susp) 10 ml PO TIDP PRN PRN Reason: Nausea Albuterol/Ipratropium (Ipratropium/Albuterol 3 Ml Ampul.Neb) 3 ml NEB Q4HP PRN PRN Reason: Shortness Of Breath Atorvastatin Calcium (Atorvastatin 40 Mg Tablet) 40 mg PO HS [facility] Last Admin: 01/12/21 22:01 Dose: 40 mg Documented by: Captopril (Captopril 12.5 Mg Tablet) 6.25 mg PO BID [facility] Last Admin: 01/13/21 08:36 Dose: 6.25 mg Documented by: Carvedilol (Carvedilol 3.125 Mg Tablet) [facility] Last Admin: 01/13/21 08:37 Dose: 3.125 mg Documented by: Clonidine HCl (Clonidine Hcl 0.1 Mg Tablet) 0.1 mg PO Q4HP PRN PRN Reason: Hypertension sbp>160 Last Admin: 01/12/21 21:56 Dose: 0.1 mg Documented by: Diagnostic Test (Pha) (Accu-Chek 1 Each Strip) 1 each FS Q2 [facility] Last Admin: 01/13/21 12:02 Dose: 1 each Documented by: Diphenhydramine HCl (Diphenhydramine 50 Mg/Ml Vial) 25 mg IV Q4-6HP PRN PRN Reason: PREVENT DYSTONIC REACTION Last Admin: 01/13/21 05:13 Dose: 25 mg Documented by: Docusate Sodium (Docusate Sodium 100 Mg Capsule) 100 mg PO BID [facility] Last Admin: 01/13/21 08:38 Dose: Not Given Documented by: Enoxaparin Sodium (Enoxaparin 40 Mg/0.4 Ml Syringe) 40 mg SQ DAILY [facility] Last Admin: 01/13/21 08:37 Dose: 40 mg Documented by: Gabapentin (Gabapentin 300 Mg Capsule) 300 mg PO TIDP PRN PRN Reason: Pain Hydralazine HCl (Hydralazine 20 Mg/Ml Vial) 0 mg IV Q2HP PRN PRN Reason: Hypertension Last Admin: 01/13/21 11:58 Dose: 20 mg Documented by: Insulin Human Regular 50 unit/ (Sodium Chloride) 100 mls @ 2 mls/hr IV DUR [facility]; Protocol Magnesium Sulfate (Magnesium Sulfate) 2 gm in 50 mls @ 50 mls/hr IV UD PRN PRN Reason: Magnesium </= 1.6 Potassium Chloride 40 meq/ (Dextrose) 520 mls @ 130 mls/hr IV UD PRN PRN Reason: Potassium < 3 Sodium Chloride (Sodium Chloride 0.9%) 1,000 mls @ 125 mls/hr IV .Q8H [facility] Last Admin: 01/13/21 07:12 Dose: 125 mls/hr Documented by: Labetalol HCl (Labetalol 5 Mg/Ml Ml) 0 mg IV Q2HP PRN PRN Reason: Hypertension Lorazepam (Lorazepam 2 Mg/Ml Vial) 0.5 mg IV Q4-6HP PRN PRN Reason: PREVENT DYSTONIC REACTION Last Admin: 01/13/21 05:14 Dose: 0.5 mg Documented by: Lorazepam (Lorazepam 0.5 Mg Tablet) 1 mg PO TIDP PRN PRN Reason: Nausea Last Admin: 01/12/21 22:09 Dose: 1 mg Documented by: Metoclopramide HCl (Metoclopramide 10 Mg/2 Ml Vial) 10 mg IV Q6HP PRN PRN Reason: Nausea And Vomiting Insulin Pump 1 dose SC DAILY [facility] Last Admin: 01/13/21 08:38 Dose: 1 dose Documented by: Nortriptyline HCl (Nortriptyline 10 Mg Capsule) 10 mg PO QHS [facility] Last Admin: 01/12/21 22:01 Dose: 10 mg Documented by: Ondansetron HCl (Ondansetron 4 Mg/2 Ml Vial) 4 mg IV Q4HP PRN PRN Reason: Nausea And Vomiting Last Admin: 01/13/21 03:08 Dose: 4 mg Documented by: Pantoprazole Sodium (Pantoprazole 40 Mg Vial) [facility] Last Admin: 01/13/21 07:13 Dose: 40 mg Documented by: Potassium Chloride (Potassium Chloride 20 Meq Tablet) 40 meq PO UD PRN PRN Reason: Potssium is 3-3.5 Potassium Chloride (Potassium Chloride 20 Meq Tablet) 40 meq PO UD PRN PRN Reason: Potassium < 3 Promethazine HCl (Promethazine 25 Mg/Ml Vial) 12.5 mg IV Q4-6HP PRN PRN Reason: Nausea And Vomiting Last Admin: 01/13/21 05:14 Dose: 12.5 mg Documented by: Senna (Sennosides 1 Tablet) 2 tab PO DAILYP PRN PRN Reason: Constipation Sodium Chloride (0.9 % Sodium Chloride 10 Ml Syringe) 10 ml IV Q8 [facility] Last Admin: 01/13/21 05:51 Dose: Not Given Documented by: Sucralfate (Sucralfate 1 Gm Tablet) 1 gm PO Q6HP PRN PRN Reason: Nausea Venlafaxine HCl (Venlafaxine 150 Mg Cap.Xl.24h) 150 mg PO DAILY [facility] Last Admin: 01/13/21 08:37 Dose: 150 mg Documented by: ABG Interpretation ABG results: 01/10/21 08:54 ABG Methemoglobin 0.3 L VBG pH 7.45 H VBG pCO2 44.1 VBG pO2 83.1 H VBG HCO3 29.6 H VBG Total CO2 31.0 H VBG O2 Saturation 91.6 H VBG Base Excess 5 H A/P Narrative A/P Narrative: 35 year old male with DMI on Insulin pump came to ED with nausea vomiting weakness for several days. He was found to have DKA. # DAK due to malfunctioning insulin pump. Hemoglobin A1c 6.5 -Status post insulin drip. Currently off insulin drip and insulin pump is working. Blood sugars are stable. -Continue Accu-Chek every 24 hours for 12 hours then before every meal at b edtime -Continue diabetic diet. Follow labs. #CKD III with baseline Cr ~2 - Currently better than it is 1.7. Continue to monitor BMP #Hypertensive urgency. Resolved. -Continue home clonidine, captopril, Coreg #Gastroparesis. Status post gastric pump. No issue #Hyperlipidemia: Continue Lipitor #Diabetic neuropathy. Continue home gabapentin # Anxiety/depression: Continue home Ativan and venlafaxine DVT PPx: Lovenox 40 mg daily CODE STATUS: Full Disposition: Transfer to floor. Monitor for 24 hours and discharged home in the morning. Plan of care discussed with patient and nursing staff. Time Spent With Patient Time: Total time spent is greater than 50% in coordination of care (as documented) at patient's floor/unit and/or counseling patient: QUALITY VTE Deep Vein Thrombosis/Pulmonary Embolism Present on Admission: No
[2021-01-13] MEDS ORDERED: SUCRALFATE 1 GM TABLET PO PRN (13:19)
[2021-01-13] MEDS ORDERED: METOCLOPRAMIDE 10 MG/2 ML VIAL IV PRN (13:19)
[2021-01-13] MEDS ORDERED: SENNOSIDES 1 TABLET PO PRN (13:19)
[2021-01-13] MEDS ORDERED: LABETALOL 5 MG/ML ML IV PRN (13:19)
[2021-01-13] MEDS ORDERED: MAGNESIUM SULFATE 2 GM/50 ML BAG IV PRN (13:19)
[2021-01-13] MEDS ORDERED: diphenhydrAMINE 50 MG/ML VIAL IV PRN (13:19)
[2021-01-13] MEDS ORDERED: hydrALAZINE 20 MG/ML VIAL IV PRN (13:19)
[2021-01-13] MEDS ORDERED: POTASSIUM CHLORIDE 20 MEQ TABLET PO PRN ×2 (13:19)
[2021-01-13] MEDS ORDERED: INSULIN REGULAR, HUMAN 50 UNIT in 0.9 % SODIUM CHLORIDE 99.5 ML IV SCH (13:19)
[2021-01-13] MEDS ORDERED: ONDANSETRON 4 MG/2 ML VIAL IV PRN (13:19)
[2021-01-13] MEDS ORDERED: LORazepam 2 MG/ML VIAL IV PRN (13:19)
[2021-01-13] MEDS ORDERED: LORazepam 0.5 MG TABLET PO PRN (13:19)
[2021-01-13] MEDS ORDERED: POTASSIUM CHLORIDE 40 MEQ in DEXTROSE 5% IN WATER 500 ML IV PRN (13:19)
[2021-01-13] MEDS ORDERED: HYDROcodone/APAP 5/325MG TABLET PO PRN (13:19)
[2021-01-13] MEDS ORDERED: MAG HYDROX/AL HYDROX/SIMETH 30 ML ORAL.SUSP PO PRN (13:19)
[2021-01-13] MEDS ORDERED: cloNIDine HCL 0.1 MG TABLET PO PRN (13:19)
[2021-01-13] MEDS ORDERED: IPRATROPIUM/ALBUTEROL 3 ML AMPUL.NEB NEB PRN (13:19)
[2021-01-13] MEDS ORDERED: ACETAMINOPHEN 325 MG TABLET PO PRN (13:19)
[2021-01-13] MEDS ORDERED: GABAPENTIN 300 MG CAPSULE PO PRN (13:19)
[2021-01-13] MEDS: 0.9 % SODIUM CHLORIDE 1,000 ML IV SCH ×2 (13:58→21:50)
[2021-01-13] MEDS ORDERED: ATORVASTATIN 40 MG TABLET PO SCH (21:00)
[2021-01-13] MEDS ORDERED: NORTRIPTYLINE 10 MG CAPSULE PO SCH (21:00)
[2021-01-14] MEDS: PROMETHAZINE 25 MG/ML VIAL IV PRN (03:01)
[2021-01-14] MEDS: 0.9 % SODIUM CHLORIDE 1,000 ML IV SCH (05:15)
[2021-01-14] MEDS: 0.9 % SODIUM CHLORIDE 10 ML SYRINGE IV SCH (06:34)
[2021-01-14] MEDS ORDERED: PANTOPRAZOLE 40 MG VIAL IV SCH (07:30)
[2021-01-14] MEDS: CARVEDILOL 3.125 MG TABLET PO SCH (07:40)
[2021-01-14 07:51] LABS: Blood Urea Nitrogen 16 mg/dL (6-20); Calcium 8.4 mg/dL (8.6-10.4); Carbon Dioxide 26 mmol/L (22-30); Chloride 101 mmol/L (96-108); Glomerular Filtration Rate 51; Glucose 96 mg/dL (70-105)
--- NOTE | 2021-01-14 08:15 | Discharge Summary ---
Discharge Provider Provider Patient information: Note initiated : 01/14/21 at 8:14 am Service Date, if different from initiated Date: Patient: Mauri Levine 35 y/o M admitted on 01/10/21 for dka. Chief Complaint: DKA Date of admission: 01/10/21 15:10 Discharge date: 01/14/21 Consults: 01/10/21 Consult to Physician [CONS] Stat Comment: Consulting Provider: Deangelo Basilio Reason For Exam: Physician to Consult Discharge Meds Discharge Medications Home Medications glucagon (human recombinant) 1 mg injection kit 1 mg IM ONCE PRN #7 each 10/02/15 [Rx Confirmed 01/10/21 Last Taken Unknown] insulin lispro 100 unit/mL subcutaneous solution See Rx Instructions SUB-Q QDAY #10 ml 04/20/17 [Rx Confirmed 01/10/21 Last Taken 02/16/19 07:00] gabapentin 600 mg PO TIDP PRN 12/24/18 [History Confirmed 01/10/21 Last Taken 12/26/20 21:00] lorazepam 1 mg PO TID PRN 12/24/18 [History Confirmed 01/10/21 Last Taken 02/20/19 20:00] Diabetic Shoes 1 each .ROUTE DAILY 02/13/19 [History Confirmed 01/14/21 Last Taken Unknown] atorvastatin 40 mg PO HS 02/13/19 [History Confirmed 01/10/21 Last Taken 01/09/21 21:00] blood-glucose meter 02/13/19 [History Confirmed 01/14/21 Last Taken Unknown] clonidine 0.2 mg TOPICAL WEEKLY 02/13/19 [History Confirmed 01/10/21 Last Taken 01/09/21 14:00] venlafaxine 150 mg PO DAILY 02/21/19 [History Confirmed 01/10/21 Last Taken 01/07/21 09:00] Ketamine 30 mg MUCOUS MEMBRANE Q6HP PRN 03/25/19 [History Confirmed 01/10/21 Last Taken 01/09/21 21:00] aluminum-mag hydroxide-simethicone 400 mg-400 mg-40 mg/5 mL oral susp 10 ml PO TID PRN 04/04/19 [History Confirmed 01/10/21 Last Taken 01/03/21] insulin glargine 100 unit/mL (3 mL) subcutaneous pen 10 unit SUB-Q QDAY PRN 04/04/19 [History Confirmed 01/10/21 Last Taken Unknown] multivitamin,eh-hmyy-dplgelsc 1 tab PO QDAY 04/04/19 [History Confirmed 01/10/21 Last Taken 01/07/21 09:00] nortriptyline 10 mg capsule 10 mg PO QHS 04/04/19 [History Confirmed 01/10/21 Last Taken Unknown] sucralfate 1 gram tablet 1 g PO Q6H PRN tab 04/04/19 [History Confirmed 01/10/21 Last Taken Unknown] captopril 12.5 mg tablet 6.25 mg PO BID #90 tab 04/09/19 [Rx Confirmed 01/10/21 Last Taken 01/09/21 21:00] ondansetron 4 mg SL Q4-6HP PRN #10 tab 12/30/19 [Rx Confirmed 01/10/21 Last Taken Unknown] carvedilol 3.125 mg PO BID 01/10/21 [History Confirmed 01/10/21 Last Taken 01/09/21 21:00] COURSE Hospital Course Hospital course: 35 year old male with DMI on Insulin pump came to ED with nausea vomiting weakness for several days. He was found to have DKA. # DAK due to malfunctioning insulin pump. Hemoglobin A1c 6.5 -Status post insulin drip. Pt resumed his insuling pump and there was no further issues with it. BS stable. - AG closed. BS ~150. Pt has no N/V, Pain. Tolerate PO. Dc home. #CKD III with baseline Cr ~2 - Currently better than it is 1.7. #Hypertensive urgency. Resolved. -Continue home clonidine, captopril, Coreg #Gastroparesis. Status post gastric pump. No issue #Hyperlipidemia: Continue Lipitor #Diabetic neuropathy. Continue home gabapentin # Anxiety/depression: Continue home Ativan and venlafaxine Disposition: Patient discharged home Condition on discharge: Hemodynamically stable. Tolerated p.o. Discharge activity: As tolerated Discharge diet: Diabetic diet. Discharge medication: See med reconciliation form Discharge follow-up: Primary care physician within 1 week for post hospital follow-up Total time of discharge 33 minutes Discharge diagnosis: DKA due to malfunctioning insulin pump Time Spent with Patient Time attestation: Total time spent providing and/or coordinating discharge services: EXAM Constitutional Vitals: Temp Pulse Resp BP Pulse Ox 97.4 F 83 18 133/72 94 01/14/21 03:50 01/14/21 03:50 01/14/21 03:50 01/14/21 03:50 01/14/21 03:50 Discharge Data Data Completed and Pending Labs on day of discharge: Labs from last 24 hours 01/14/21 06:30 Sodium 135 Potassium 4.0 Chloride 101 Carbon Dioxide 26 Anion Gap 8.0 BUN 16 Creatinine 1.7 H GFR Calculation 51 Glucose 96 Calcium 8.4 L Discharge Plan Patient/Caregiver Discharge Instructions Activity: increase activity as tolerated Diet: Consistent Carbohydrate Instructions: Diabetic Ketoacidosis (DC) Activity Restrictions/Additional Instructions: Follow-up with PCP in 3 to 7 days. Call your PCP today for follow-up appointment. Increase activity as tolerated. Consistent carbohydrate diet as tolerated. Take home medications as ordered. Call your physician for sustained fever greater than 100.5, sustained increased blood sugars, or any questions/concerns. This discharge packet is provided to you to help keep you informed about your care. We want to ensure you get everything you need when you go home. You will also be receiving a call from us in a few days to follow up with you and see how you are doing since your discharge. This gives us a chance to listen to any concerns you maybe experiencing since you were discharged or any additional needs you may have, as well as providing us feedback on your care experience. We strive to always provide excellent care and thank you for your feedback and for choosing [facility]. Prescriptions: Continued insulin lispro [Humalog U-100 Insulin] 100 unit/mL solution See Rx Instructions SUB-Q QDAY Qty: 10 RF: 11 captopril 12.5 mg tablet 6.25 mg PO BID Qty: 90 RF: 0 glucagon (human recombinant) 1 mg kit 1 mg IM ONCE PRN (Reason: hypoglycemia) Qty: 7 RF: 0 Lantus Solostar U-100 Insulin 100 unit/mL (3 mL) insulin pen 10 unit SUB-Q QDAY PRN (Reason: Hyperglycemia) RF: 0 Complete Multivitamin tablet 1 tab PO QDAY RF: 0 nortriptyline 10 mg capsule 10 mg PO QHS RF: 0 sucralfate 1 gram tablet 1 g PO Q6H PRN (Reason: Nausea) RF: 0 alum-mag hydroxide-simeth 400-400-40 mg/5 mL suspension 10 ml PO TID PRN (Reason: Nausea) RF: 0 gabapentin 300 MG capsule 600 mg PO TIDP PRN (Reason: Pain) RF: 0 lorazepam 0.5 MG tablet 1 mg PO TID PRN (Reason: Anxiety) RF: 0 atorvastatin 40 MG tablet 40 mg PO HS RF: 0 clonidine 1 EACH patch weekly 0.2 mg topical WEEKLY RF: 0 (DME) blood-glucose meter 1 EACH misc 0 each .Route .MEDSUPPLY RF: 0 Diabetic Shoes 1 each .Route DAILY RF: 0 venlafaxine 150 MG tablet extended release 24hr 150 mg PO DAILY RF: 0 Ketamine 30 mg mucous membrane Q6HP PRN (Reason: Nausea) RF: 0 ondansetron 4 MG tablet 4 mg SL Q4-6HP PRN (Reason: Nausea) Qty: 10 RF: 0 carvedilol 3.125 mg Tablet 3.125 mg PO BID RF: 0 Follow Up Plan Follow up with: Ita Dye ARNP [Nurse Practitioner] - 01/22/21 8:45 am Patient Disposition: Home, Self-Care Prognosis: Fair Discharge Orders: Discharge Order (Routine); Ordered 01/14/21 Ordered By: Chai BEACH VTE Deep Vein Thrombosis/Pulmonary Embolism Present on Admission: No
[2021-01-14] MEDS ORDERED: HEPARIN SODIUM,PORCINE/PF 500 UNIT/5 ML SYRINGE IV ONE (08:44)
[2021-01-14] MEDS ORDERED: VENLAFAXINE 150 MG CAP.XL.24H PO SCH (09:00)
[2021-01-14] MEDS ORDERED: INSULIN PUMP SC SCH (09:00)
[2021-01-14] MEDS ORDERED: ENOXAPARIN 40 MG/0.4 ML SYRINGE SQ SCH (09:00)
[2021-01-14] MEDS: CAPTOPRIL 12.5 MG TABLET PO SCH (09:08)
[2021-01-14] MEDS: DOCUSATE SODIUM 100 MG CAPSULE PO SCH (09:08)
[2021-01-18 07:43] LABS: Cannabinoid Confirmation Positive
== END 2021-01-14 10:15 | disposition home or self-care (01) | DRG 919 ==
LOC: ED 08:21 → ICU 15:10 → MEDSUR 01-13 16:30
PROVIDERS: ADMIT Internal Medicine; ATTEND Internal Medicine

== ENCOUNTER 2021-06-04 08:22 | Inpatient (IN) ==
[2021-06-04] MEDS ORDERED: ONDANSETRON 4 MG/2 ML VIAL IV ONE (08:29)
[2021-06-04] MEDS ORDERED: LACTATED RINGERS 1,000 ML IV ONE ×4 (08:29→14:33)
--- NOTE | 2021-06-04 08:33 | Emergency Department Note ---
HPI General Chief complaint: Nausea/Vomiting/Diarrhea Stated complaint: Vomiting, elevated blood sugar Time Seen by Provider: 06/04/21 08:29 Source: EMS Mode of arrival: EMS Limitations: no limitations History of Present Illness HPI Narrative: Narrative: Patient is a 35-year-old gentleman who arrives emergency department by ambulance complaining of nausea and vomiting. The patient says about 3 days ago he starte d having nausea and repeated episodes of vomiting. He denies any associated abdominal pain fever or chills. Symptoms were gradual in onset and been progressively worsening. His glucometer recently broke up he has been doing hourly fingersticks to substitute for his continuous glucose monitor and notes that his blood sugar has been in an acceptable range up until today. Today, he was unable to tolerate eating anything and was feeling worse and was worried that he was going into DKA so he called 911 and was transported to the emergency department. Prior to emergency department arrival, paramedics found his blood glucose to be too high to read accurately under glucometer. He has had similar symptoms many times in the past due to gastroparesis diabetic ketoacidosis or starvation ketosis. Related Data Home Medications Medication Instructions Recorded Confirmed Diabetic Shoes 1 each .ROUTE DAILY 02/13/19 05/05/21 atorvastatin 40 mg tablet 40 mg PO HS 02/13/19 05/05/21 aluminum-mag hydroxide-simethicone 10 ml PO TID PRN 04/04/19 05/05/21 400 mg-400 mg-40 mg/5 mL oral susp L.acidophil-L.casei-B.bifid-B.longum-FOS 1 cap PO QDAY 02/11/21 05/05/21 2 billion cell-50 mg capsule (Probiotic Blend) Vitamin C complex PO 02/11/21 05/05/21 calcium carbonate 300 mg (750 mg) 600 mg PO ONCE tab 02/11/21 05/05/21 chewable tablet (Tums) cholecalciferol (vitamin D3) 50 50 mcg PO QDAY 02/11/21 05/05/21 mcg (2,000 unit) capsule cyanocobalamin (vitamin B-12) 1,000 mcg PO QHS cap 02/11/21 05/05/21 1,000 mcg capsule fluvoxamine 100 mg tablet 100 mg PO QHS 02/11/21 05/05/21 melatonin 10 mg tablet 10 mg PO HS PRN 02/11/21 05/05/21 omeprazole 20 mg capsule,delayed 20 mg PO BID 02/11/21 05/05/21 release ondansetron HCl (PF) 4 mg/2 mL 8 mg IM Q6H PRN ml 02/11/21 05/05/21 injection solution ftdlbjmcua-xqorvv-utqzztch-amylase tab PO 02/11/21 05/05/21 325 mg tablet promethazine 25 mg/mL injection 25 mg IM ONCE PRN 02/11/21 05/05/21 solution (Phenergan) tadalafil 10 mg tablet (Cialis) 10 mg PO QHS PRN tab 02/11/21 05/05/21 calcium cit 250 mg-ergocalciferol 1 tab PO QHS tab 03/26/21 05/05/21 (vit D2) 2.5 mcg (100 unit) tablet (Farshad-Citrate) furosemide 20 mg tablet 20 mg PO BID tab 03/26/21 05/05/21 gabapentin 300 mg capsule 600 mg PO BID cap 03/26/21 05/05/21 insulin aspart U-100 100 unit/mL See Rx Instructions .ROUTE .COMPLEX 03/26/21 05/05/21 subcutaneous solution (Novolog U-100 Insulin aspart) ketamine 50mg/ml nasal spray INTRANASAL PRN 03/26/21 05/05/21 nortriptyline 10 mg capsule 10 mg PO QHS 03/26/21 05/05/21 Previous Rx's Medication Instructions Recorded carvedilol 6.25 mg tablet 6.25 mg PO BID #60 tab 03/26/21 clonidine 0.2 mg/24 hr weekly 1 patch TRANSDERMAL QWEEK #4 ea 03/26/21 transdermal patch lisinopril 10 mg tablet 10 mg PO QDAY #30 tab 04/21/21 lorazepam 1 mg tablet See Rx Instructions .ROUTE 04/21/21 .COMPLEX PRN #10 tab Chiropractic #1 ea 05/05/21 Allergies Allergy/AdvReac Type Severity Reaction Status Date / Time silver Allergy Mild dystonic Verified 06/04/21 08:22 NSAIDS (Non-Steroidal Allergy Unknown Unknown Verified 06/04/21 08:22 Anti-Inflamma metoclopramide [From Reglan] AdvReac Mild Agitated Verified 06/04/21 08:22 prochlorperazine AdvReac Mild "My whole Verified 06/04/21 08:22 [From Compazine] body freaks out." IV iodine contrast Allergy Unknown Unknown Uncoded 05/05/21 16:03 Review of Systems ROS ROS Narrative: Narrative: All systems ED: reviewed and negative except as stated. Cardiovascular: Denies chest pain Respiratory: Denies shortness of breath or cough PFSH Narrative Patient History Narrative: Narrative: Medical/Surgical/Family History All Active Problems (Updated 06/04/21 @ 17:36 by David Woods DO) Testosterone deficiency (Chronic) Nausea and vomiting (Chronic) GERD (gastroesophageal reflux disease) (Chronic) Other hammer toe(s) (acquired), left foot (Chronic) Hypertension, essential (Chronic) Hyperlipidemia (Chronic) History of neuroleptic malignant syndrome (Chronic) Dehydration (Acute) Drug-induced nausea and vomiting (Acute) Uncontrolled type 1 diabetes mellitus with diabetic nephropathy, with long-term current use of insulin (Chronic) Cyclic vomiting syndrome (Chronic) Type 1 diabetes mellitus with stage 3 chronic kidney disease and hypertension (Chronic) Marijuana use, continuous (Chronic) CKD (chronic kidney disease) (Acute) Nephrotic range proteinuria (Chronic) Controlled type 1 diabetes mellitus with chronic kidney disease (Chronic) Port-A-Cath in place (Acute) Diabetic gastroparesis associated with type 1 diabetes mellitus (Chronic) Diabetic neuropathy associated with type 1 diabetes mellitus (Chronic) Diabetic retinopathy associated with type 1 diabetes mellitus (Chronic) Anxiety (Chronic) Back pain (Chronic) Physical deconditioning (Chronic) Malnutrition (Chronic) Acute dehydration (Acute) Acute hypokalemia (Acute) QT prolongation (Acute) Medical History Abdominal pain, epigastric Anxiety Back pain Chronic ulcer of left foot Coffee ground emesis Diabetes mellitus type I Age 12, With foot ulcer Diabetic gastroparesis associated with type 1 diabetes mellitus Diabetic neuropathy associated with type 1 diabetes mellitus Diabetic peripheral neuropathy Diabetic retinopathy associated with type 1 diabetes mellitus DKA, type 1 Esophageal candidiasis Gastroenteritis Gastroparesis due to DM GERD (gastroesophageal reflux disease) Hallux valgus (acquired), left foot History of neuroleptic malignant syndrome To compazine (prochlorperazine). Tolerates promethazine without issue Hyperlipidemia Hypertension, essential labile due o unpredictable Rx absorption with gastroparesis and propensity for dehydration Hypokalemia Connie-[place] tear Malnutrition Marijuana use, continuous Nausea and vomiting Non-pressure chronic ulcer of other part of left foot limited to breakdown of sk in Other hammer toe(s) (acquired), left foot Peripheral autonomic neuropathy due to DM Physical deconditioning Sepsis Tardive dyskinesia due to metoclopramide (Reglan) Testosterone deficiency Surgical History History of toe surgery left hallux Family History Mother Atrial fibrillation Essential hypertension Sister Malignant neoplasm of female breast Maternal Grandfather Malignant neoplasm of colon Recorded 11/12/10 Father Essential hypertension Other Adopted DKA, type 1 Social History Smoking Status: Former smoker Alcohol Intake Frequency: former alcohol drinker Substance Use: does not use Exam Narrative Narrative: I reviewed the vital signs. Gen -patient is awake and alert and appears uncomfortable but in no acute distress. HEENT -head is atraumatic. There is no conjunctival pallor or scleral icterus. Mucous membranes are dry. CV -S1-S2 regular rate and rhythm. There is a systolic murmur. Peripheral pulses are palpable. There is no JVD. Resp -breathing is nonlabored. Lungs are clear to auscultation bilaterally. There is no cyanosis. GI - Abdomen is soft and nontender to palpation. There is no guarding or rebound tenderness. Derm -skin is warm and dry. There is no visible rash. MSK -present extremities are atraumatic. Psych -patient has appropriate affect. The patient does not appear internally stimulated. Neuro -patient answers questions appropriately with fluent speech. Patient moves all present extremities equally. General Limitations: no limitations Course Vital Signs Vital signs: Vital Signs Temperature 97.7 F 06/04/21 08:22 Pulse Rate 99 H 06/04/21 08:22 Respiratory Rate 18 06/04/21 08:22 Blood Pressure 100/64 06/04/21 08:22 Pulse Oximetry (%) 98 06/04/21 08:22 Temperature 97.7 F 06/04/21 08:22 Pulse Rate 94 H 06/04/21 08:45 Respiratory Rate 19 06/04/21 17:15 Blood Pressure 142/69 06/04/21 17:15 Pulse Oximetry (%) 99 06/04/21 08:45 MDM MDM Narrative Medical decision making narrative: Patient with history of gastroparesis and brittle diabetes presents with symptoms reminiscent of prior episodes of gastroparesis and diabetic ketoacidosis. Labs do not reveal any significant metabolic acidosis. He is quite hyperglycemic and has a low normal potassium which is likely quite low considering his extracellular shift from his hyperglycemia. He was given several liters of crystalloids and electrolyte replacement. I was quite limited in safe antiemetics I was able to administer given his QT prolongation. Despite my efforts, his vomiting remained quite persistent and he continued to have significant QT prolongation on his EKG. Given this I recommended he be admitted for further hydration and electrolyte replacement. He is agreeable with the plan. I discussed the patient's history examination and diagnostic findings with Dr. Basilio, who agrees with the plan of care and accepts admission. Critical care time I provided 35 minutes of critical care time. This was in addition to any separately billable procedures. The patient was given IV fluids and insulin to treat his severe hyperglycemia and prevent progression to diabetic ketoacidosis. He was also treated for severe dehydration and hypokalemia. The patient was closely monitored for response to treatment and stability of vital signs thro ughout their emergency department stay. Lab Data Result diagrams: 06/04/21 08:51 Labs: Lab Results 06/04/21 06/04/21 Range/Units 08:51 08:51 WBC 12.5 H (4.5-11.0) K/mcL RBC 4.86 (4.63-6.08) M/mcL Hgb 13.7 (13.7-17.5) g/dL Hct 41.6 (40.1-51.0) % POC Hct 46 (41-55) % MCV 85.6 (80.0-100.0) fL MCH 28.2 (26.0-34.0) pg MCHC 32.9 (31.0-36.0) g/dL RDW 12.8 (11.5-14.5) % Plt Count 344 (140-440) K/mcL MPV 12.2 H (7.4-10.4) fL Neut % (Auto) 89.0 H (38.0-78.0) % Lymph % (Auto) 5.3 L (15.5-49.0) % [place] % (Auto) 5.5 (1.0-12.0) % Eos % (Auto) 0 (0.0-7.0) % Baso % (Auto) 0.2 (0.0-2.0) % Lymph # (Auto) 0.66 L (1.50-4.80) K/mcL [place] # (Auto) 0.69 (0.10-0.90) K/mcL Eos # (Auto) 0 (0.00-0.70) K/mcL Baso # (Auto) 0.03 (0.00-0.30) K/mcL Absolute Neutrophils 11.09 H (1.80-8.00) K/mcL POC Sodium 126 L (133-145) mEq/L POC Potassium 3.5 (3.3-5.1) mEql/L POC Chloride 67 L (96-108) mEq/L POC Total CO2 41 H (22-30) mmol/L POC BUN 37 H (6-20) mg/dL POC Creatinine 3.5 H (0.6-1.2) mg/dL POC Glucose > 700 H* mg/dL POC WB Ioniz Calcium 0.83 L (1.16-1.32) mmEq/L EKG Data EKG #1: EKG attestation: Yes I reviewed and interpreted this EKG. EKG results narrative: EKG performed at 8:52 AM: Sinus rhythm, rate 90. Normal P wave morphology. Normal QRS morphology. Normal T wave morphology. No ST segment deviation. Normal DE and QRS duration. QTc is prolonged at 557. No old EKG immediately available for comparison. EKG was interpreted by me. EKG #2: EKG attestation: Yes I reviewed and interpreted this EKG. EKG results narrative: EKG performed at 12:54 PM: Sinus rhythm, rate 106. Normal P wave QRS morphology. T waves are diffusely flattened. No ST segment deviation. Normal DE and QRS duration. QTc is prolonged at 502. Compared to the prior EKG from earlier today, there is a less prolonged QT segment. There are no ischemic changes. EKG was interpreted by me. EKG #3: EKG attestation: Yes I reviewed and interpreted this EKG. EKG results narrative: EKG performed at 2:38 PM: Sinus rhythm, rate 105. Normal P wave QRS and T wave morphology. No ST segment deviation. Normal DE QRS duration. QTc is prolonged at 523. There are no significant changes compared to the prior EKGs. EKG was interpreted by me. Discharge Plan Patient/Caregiver Discharge Instructions Pt seen by TECHNOLOGY SPECIALIST/PA only: No Clinical Impression: Acute dehydration, Acute hypokalemia, QT prolongation Patient Disposition: Xfer As Inpt ([facility]) Follow up with: Flo Peña MD [Primary Care Provider] - Prescriptions: No Action lisinopril 10 mg tablet 10 mg PO QDAY Qty: 30 1RF Rx Instructions: 1 tab QD noon, if no N/V or dehydration lorazepam 1 mg tablet See Rx Instructions .ROUTE .COMPLEX PRN (Reason: nausea and vomiting) Qty: 10 0RF Rx Instructions: 0.5mg TID for panic attack,1-2mg daily for nausea/vomiting furosemide 20 mg tablet 20 mg PO BID 0RF Label Comments: hold if nausea or dehydration nortriptyline 10 mg capsule 10 mg PO QHS 0RF Farshad-Citrate 250 mg-2.5 mcg (100 unit) tablet 1 tab PO QHS 0RF ketamine 50mg/ml nasal spray intranasal PRN (Reason: nausea and vomiting) 0RF carvedilol 6.25 mg tablet 6.25 mg PO BID Qty: 60 2RF Rx Instructions: must administer with a meal/food clonidine 0.2 mg/24 hr patch weekly 1 patch transdermal QWEEK Qty: 4 2RF omeprazole 20 mg capsule,delayed release(DR/EC) 20 mg PO BID 0RF fluvoxamine 100 mg tablet 100 mg PO QHS 0RF tadalafil [Cialis] 10 mg tablet 10 mg PO QHS PRN (Reason: Sexual Activity) 0RF Rx Instructions: administer approximately 30min before sexual activity; do not use more than 1 dose per 24hrs cyanocobalamin (vitamin B-12) 1,000 mcg capsule 1,000 mcg PO QHS 0RF cholecalciferol (vitamin D3) 50 mcg (2,000 unit) capsule 50 mcg PO QDAY 0RF Vitamin C complex PO 0RF Probiotic Blend 2 billion cell-50 mg capsule 1 cap PO QDAY 0RF Rx Instructions: give with meal/snack zlkpatgqxb-bkemdo-eqxhncqf-endy 325 mg tablet PO 0RF promethazine [Phenergan] 25 mg/mL solution 25 mg IM ONCE PRN (Reason: Nausea) 0RF melatonin 10 mg tablet 10 mg PO HS PRN (Reason: Insomnia) 0RF ondansetron HCl (PF) 4 mg/2 mL solution 8 mg IM Q6H PRN (Reason: Nausea) 0RF calcium carbonate [Tums] 300 mg (750 mg) tablet,chewable 600 mg PO ONCE 0RF (DME) Chiropractic See Rx Instructions .Route .MEDSUPPLY Qty: 1 0RF Rx Instructions: Visits per calendar as accepted by insurance [facility]-mag hydroxide-simeth 400-400-40 mg/5 mL suspension 10 ml PO TID PRN (Reason: Nausea) 0RF insulin aspart U-100 [Novolog U-100 Insulin aspart] 100 unit/mL solution See Rx Instructions .ROUTE .COMPLEX 0RF Rx Instructions: via insulin pump. 3872-4285 basal rate 1.2, 7409-7703 basal rate 1.1, 0700- 1900 basal rate 1.0, 7299-6811 basal rate 1.2 gabapentin 300 mg capsule 600 mg PO BID 0RF atorvastatin 40 MG tablet 40 mg PO HS 0RF Diabetic Shoes 1 each .Route DAILY 0RF Label Comments: patient has them but does not wear them Rx Instructions: Use as directed
[2021-06-04 09:15] LABS: POC Blood Urea Nitrogen 37 mg/dL (6-20); POC CO2 41 mmol/L (22-30); POC Calcium, Ionized 0.83 mmEq/L (1.16-1.32); POC Chloride 67 mEq/L (96-108); POC Creatinine 3.5 mg/dL (0.6-1.2); POC Glucose, Random > 700 mg/dL; POC Hematocrit 46 % (41-55); POC Potassium 3.5 mEql/L (3.3-5.1); POC Sodium 126 mEq/L (133-145)
[2021-06-04] MEDS ORDERED: INSULIN REGULAR, HUMAN 1 UNIT/0.01 ML UNIT IV ONE ×3 (09:28→17:40)
[2021-06-04] MEDS ORDERED: POTASSIUM CHLORIDE 20 MEQ TABLET PO ONE (09:28)
[2021-06-04] MEDS ORDERED: MAG HYDROX/AL HYDROX/SIMETH 30 ML ORAL.SUSP PO ONE ×2 (09:28→13:11)
[2021-06-04] MEDS ORDERED: POTASSIUM CHLORIDE 20 MEQ in DEXTROSE 5% IN WATER 100 ML IV ONE ×2 (09:29→14:41)
[2021-06-04] MEDS ORDERED: POTASSIUM CHLORIDE 20 MEQ PACKET PO ONE (09:40)
[2021-06-04 09:50] LABS: Basophils # (Auto) 0.03 K/mcL (0.00-0.30); Basophils % (Auto) 0.2 % (0.0-2.0); Eosinophils # (Auto) 0 K/mcL (0.00-0.70); Eosinophils % (Auto) 0 % (0.0-7.0); Hematocrit 41.6 % (40.1-51.0); Hemoglobin 13.7 g/dL (13.7-17.5); Lymphocytes # (Auto) 0.66 K/mcL (1.50-4.80); Lymphocytes % (Auto) 5.3 % (15.5-49.0); Mean Cell Volume 85.6 fL (80.0-100.0); Mean Corpuscular HGB Conc 32.9 g/dL (31.0-36.0); Mean Platelet Volume 12.2 fL (7.4-10.4); Monocytes # (Auto) 0.69 K/mcL (0.10-0.90); Monocytes % (Auto) 5.5 % (1.0-12.0); Platelet Count 344 K/mcL (140-440); RBC 4.86 M/mcL (4.63-6.08); Red Cell Distribution Width 12.8 % (11.5-14.5); WBC 12.5 K/mcL (4.5-11.0)
[2021-06-04] MEDS ORDERED: METOCLOPRAMIDE 10 MG/2 ML VIAL IV ONE (17:37)
--- NOTE | 2021-06-04 17:39 | Internal Med History&Physical ---
HPI History of Present Illness Patient information: Note initiated : 06/04/21 at 5:33 pm Service Date, if different from initiated Date: [] Patient: Mauri Levine 35 y/o M admitted on for Vomiting, elevated blood sugar. Chief Complaint: [] History of present illness: Mr. Levine is a 35 year old M Male with a history of diabetes type 1 gastroparesis woke up Tuesday morning with nausea vomiting. This is not too uncommon to wake up and have a episode nausea vomiting but this time it did not go away. He was checking his sugars frequently and they seem to do okay for the first couple days but then today his sugars got really high and he continued have nausea vomiting thus presented to the ED. Sugars on plan care were greater than 700 his creatinine. But higher than usual. Had an elevated lactate. Labs are stable. Denies any respiratory symptoms or upper respiratory tract infections. UA is pending. No obvious source of infection in ED work-up. He got 4 L of NS and 20 units of regular insulin throughout the day. He had a prolonged QTC and thus caution was taken with antiemetics. We will try a scopolamine patch and IV Ativan. Started on insulin drip in the ED. Review of Systems: Pertinent positives as above. Denies headache/fever/chills/chest pain/cough/dyspnea/diarrhea. Otherwise see above. PFSH PFSH All Active Problems (Updated 06/04/21 @ 17:36 by David Woods DO) Testosterone deficiency (Chronic) Nausea and vomiting (Chronic) GERD (gastroesophageal reflux disease) (Chronic) Other hammer toe(s) (acquired), left foot (Chronic) Hypertension, essential (Chronic) Hyperlipidemia (Chronic) History of neuroleptic malignant syndrome (Chronic) Dehydration (Acute) Drug-induced nausea and vomiting (Acute) Uncontrolled type 1 diabetes mellitus with diabetic nephropathy, with long-term current use of insulin (Chronic) Cyclic vomiting syndrome (Chronic) Type 1 diabetes mellitus with stage 3 chronic kidney disease and hypertension (Chronic) Marijuana use, continuous (Chronic) CKD (chronic kidney disease) (Acute) Nephrotic range proteinuria (Chronic) Controlled type 1 diabetes mellitus with chronic kidney disease (Chronic) Port-A-Cath in place (Acute) Diabetic gastroparesis associated with type 1 diabetes mellitus (Chronic) Diabetic neuropathy associated with type 1 diabetes mellitus (Chronic) Diabetic retinopathy associated with type 1 diabetes mellitus (Chronic) Anxiety (Chronic) Back pain (Chronic) Physical deconditioning (Chronic) Malnutrition (Chronic) Acute dehydration (Acute) Acute hypokalemia (Acute) QT prolongation (Acute) Medical History Abdominal pain, epigastric Anxiety Back pain Chronic ulcer of left foot Coffee ground emesis Diabetes mellitus type I Age 12, With foot ulcer Diabetic gastroparesis associated with type 1 diabetes mellitus Diabetic neuropathy associated with type 1 diabetes mellitus Diabetic peripheral neuropathy Diabetic retinopathy associated with type 1 diabetes mellitus DKA, type 1 Esophageal candidiasis Gastroenteritis Gastroparesis due to DM GERD (gastroesophageal reflux disease) Hallux valgus (acquired), left foot History of neuroleptic malignant syndrome To compazine (prochlorperazine). Tolerates promethazine without issue Hyperlipidemia Hypertension, essential labile due o unpredictable Rx absorption with gastroparesis and propensity for dehydration Hypokalemia Connie-[place]rne tear Malnutrition Marijuana use, continuous Nausea and vomiting Non-pressure chronic ulcer of other part of left foot limited to breakdown of skin Other hammer toe(s) (acquired), left foot Peripheral autonomic neuropathy due to DM Physical deconditioning Sepsis Tardive dyskinesia due to metoclopramide (Reglan) Testosterone deficiency Surgical History History of toe surgery left hallux Family History Mother Atrial fibrillation Essential hypertension Sister Malignant neoplasm of female breast Maternal Grandfather Malignant neoplasm of colon Recorded 11/12/10 Father Essential hypertension Other Adopted DKA, type 1 Social History adopted: Yes household members: family housing: other details: 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 marital status: single occupational status: disabled occupation: On disability since 2017 physical activity: walking smoking status: Former smoker quit date: 02/12/11 alcohol intake frequency: former alcohol drinker substance use type: does not use seatbelt use: always MEDS/ALLERGIES Home Medications and Allergies Home Medications Medication Instructions Recorded Confirmed Type Diabetic Shoes 1 each .ROUTE DAILY 02/13/19 05/05/21 History atorvastatin 40 mg tablet 40 mg PO HS 02/13/19 05/05/21 History aluminum-mag hydroxide-simethicone 10 ml PO TID PRN 04/04/19 05/05/21 History 400 mg-400 mg-40 mg/5 mL oral susp L.acidophil-L.casei-B.bifid-B.longum-FOS 1 cap PO QDAY 02/11/21 05/05/21 History 2 billion cell-50 mg capsule (Probiotic Blend) Vitamin C complex PO 02/11/21 05/05/21 History calcium carbonate 300 mg (750 mg) 600 mg PO ONCE tab 02/11/21 05/05/21 History chewable tablet (Tums) cholecalciferol (vitamin D3) 50 50 mcg PO QDAY 02/11/21 05/05/21 History mcg (2,000 unit) capsule cyanocobalamin (vitamin B-12) 1,000 mcg PO QHS cap 02/11/21 05/05/21 History 1,000 mcg capsule fluvoxamine 100 mg tablet 100 mg PO QHS 02/11/21 05/05/21 History melatonin 10 mg tablet 10 mg PO HS PRN 02/11/21 05/05/21 History omeprazole 20 mg capsule,delayed 20 mg PO BID 02/11/21 05/05/21 History release ondansetron HCl (PF) 4 mg/2 mL 8 mg IM Q6H PRN ml 02/11/21 05/05/21 History injection solution vvzsqrizie-kykxcc-kjmwxchc-amylase tab PO 02/11/21 05/05/21 History 325 mg tablet promethazine 25 mg/mL injection 25 mg IM ONCE PRN 02/11/21 05/05/21 History solution (Phenergan) tadalafil 10 mg tablet (Cialis) 10 mg PO QHS PRN tab 02/11/21 05/05/21 History calcium cit 250 mg-ergocalciferol 1 tab PO QHS tab 03/26/21 05/05/21 History (vit D2) 2.5 mcg (100 unit) tablet (Farshad-Citrate) carvedilol 6.25 mg tablet 6.25 mg PO BID #60 tab 03/26/21 05/05/21 Rx clonidine 0.2 mg/24 hr weekly 1 patch TRANSDERMAL QWEEK #4 ea 03/26/21 05/05/21 Rx transdermal patch furosemide 20 mg tablet 20 mg PO BID tab 03/26/21 05/05/21 History gabapentin 300 mg capsule 600 mg PO BID cap 03/26/21 05/05/21 History insulin aspart U-100 100 unit/mL See Rx Instructions .ROUTE .COMPLEX 03/26/21 05/05/21 History subcutaneous solution (Novolog U-100 Insulin aspart) ketamine 50mg/ml nasal spray INTRANASAL PRN 03/26/21 05/05/21 History nortriptyline 10 mg capsule 10 mg PO QHS 03/26/21 05/05/21 History lisinopril 10 mg tablet 10 mg PO QDAY #30 tab 04/21/21 05/05/21 Rx lorazepam 1 mg tablet See Rx Instructions .ROUTE 04/21/21 05/05/21 Rx .COMPLEX PRN #10 tab Chiropractic #1 ea 05/05/21 05/05/21 Rx Allergies Allergy/AdvReac Type Severity Reaction Status Date / Time silver Allergy Mild dystonic Verified 06/04/21 08:22 NSAIDS (Non-Steroidal Allergy Unknown Unknown Verified 06/04/21 08:22 Anti-Inflamma metoclopramide [From Reglan] AdvReac Mild Agitated Verified 06/04/21 08:22 prochlorperazine AdvReac Mild "My whole Verified 06/04/21 08:22 [From Compazine] body freaks out." IV iodine contrast Allergy Unknown Unknown Uncoded 05/05/21 16:03 EXAM Constitutional Vitals: Temp Pulse Resp BP Pulse Ox 97.7 F 94 H 19 142/69 99 06/04/21 08:22 06/04/21 08:45 06/04/21 17:15 06/04/21 17:15 06/04/21 08:45 Exam: General: Alert, Awake, No acute Distress Eyes/N/T: EOMI, PERRL, dry MM Head/Neck: neck supple, normocephalic atraumatic CV: Mildly tacky but regular, 2/6 SM, normal s1/s2 Pulm: Clear b/l, no wheezing/rhonchi/rales Abd: soft, nontender, +BS x4 Ext: no clubbing/cyanosis/edema Neuro: Alert, no focal deficits, moves all extremities, CN 2-12 grossly intact, symmetrical strength b/l upper/lower, sensations intact b/l upper/lower Skin: warm/dry DATA Data Completed and Pending Labs: Labs from last 24 hours 06/04/21 06/04/21 08:51 08:51 WBC 12.5 H RBC 4.86 Hgb 13.7 Hct 41.6 POC Hct 46 MCV 85.6 MCH 28.2 MCHC 32.9 RDW 12.8 Plt Count 344 MPV 12.2 H Neut % (Auto) 89.0 H Lymph % (Auto) 5.3 L [place] % (Auto) 5.5 Eos % (Auto) 0 Baso % (Auto) 0.2 Lymph # (Auto) 0.66 L [place] # (Auto) 0.69 Eos # (Auto) 0 Baso # (Auto) 0.03 Absolute Neutrophils 11.09 H POC Sodium 126 L POC Potassium 3.5 POC Chloride 67 L POC Total CO2 41 H POC BUN 37 H POC Creatinine 3.5 H POC Glucose > 700 H* POC WB Ioniz Calcium 0.83 L A/P Narrative A/P Narrative: A: *HHS/DKA overlap: *DM type I with Gastroparesis/Neuropathy: -A1c 8.4 (March) *Hypovolemia: *ROSALIO on CKD III (~2's): Follows with Dr. Mills *Anemia, chronic *HTN: On coreg/clonidine/lisinopril *Anxiety/depression: *GERD: P: -Insulin gtt -IV fluids -Monitor electrolytes and replace -clear liquids if patient is tolerant and advance diet as able -Antiemetics -hold ACEI for ROSALIO, IV prn BP meds -home med reconciliation -ppx: Lovenox/H2 Time Spent With Patient Time: Total time spent is greater than 50% in coordination of care (as documented) at patient's floor/unit and/or counseling patient:
[2021-06-04] MEDS ORDERED: LORazepam 2 MG/ML VIAL IV ONE (17:40)
[2021-06-04] MEDS ORDERED: SCOPOLAMINE 1 PATCH PATCH TOPICAL ONE (17:40)
[2021-06-04] MEDS ORDERED: POTASSIUM CHLORIDE 40 MEQ in DEXTROSE 5% IN WATER 500 ML IV PRN (19:13)
[2021-06-04] MEDS ORDERED: SCOPOLAMINE 1 PATCH PATCH TOPICAL SCH (19:13)
[2021-06-04] MEDS ORDERED: POTASSIUM CHLORIDE 20 MEQ TABLET PO PRN ×2 (19:13)
[2021-06-04] MEDS ORDERED: POLYETHYLENE GLYCOL 3350 17 GM PACKET PO PRN (19:13)
[2021-06-04] MEDS ORDERED: SENNOSIDES 1 TABLET PO PRN (19:13)
[2021-06-04] MEDS ORDERED: MAGNESIUM SULFATE 2 GM/50 ML BAG IV PRN (19:13)
[2021-06-04] MEDS ORDERED: IPRATROPIUM/ALBUTEROL 3 ML AMPUL.NEB NEB PRN (19:13)
[2021-06-04] MEDS ORDERED: ACETAMINOPHEN 325 MG TABLET PO PRN (19:13)
[2021-06-04] MEDS ORDERED: METOCLOPRAMIDE 10 MG/2 ML VIAL IV PRN (19:13)
[2021-06-04 19:21] LABS: ALT/SGPT 9 U/L (<40); AST/SGOT 13 U/L (<40); Albumin 3.8 gm/dL (3.2-5.2); Albumin/Globulin Ratio 1.2 (1.0-2.3); Alkaline Phosphatase 125 U/L (39-117); Bilirubin,Direct < 0.2 mg/dL (0-0.3); Bilirubin,Total 0.4 mg/dL (0.1-1.0); Blood Urea Nitrogen 37 mg/dL (6-20); Calcium 8.6 mg/dL (8.6-10.4); Carbon Dioxide 38 mmol/L (22-30); Chloride 75 mmol/L (96-108); Globulin 3.2 gm/dL (2.2-3.7); Glomerular Filtration Rate 22; Glucose 513 mg/dL (70-105); Lactate Dehydrogenase 167 U/L (135-225); Phosphorous 3.8 mg/dL (2.5-4.5); Triglycerides 154 mg/dL (<150); Uric Acid 7.9 mg/dL (2.5-8.0)
[2021-06-04] MEDS: 0.9 % SODIUM CHLORIDE 1,000 ML IV SCH (19:32)
[2021-06-04] MEDS ORDERED: INSULIN REGULAR, HUMAN 1 UNIT/0.01 ML UNIT ONE (19:36)
[2021-06-04] MEDS: INSULIN REGULAR, HUMAN 50 UNIT in 0.9 % SODIUM CHLORIDE 99.5 ML IV SCH (19:45)
[2021-06-04] MEDS: 0.9 % SODIUM CHLORIDE 250 ML IV SCH (21:01)
[2021-06-04] MEDS: 0.9 % SODIUM CHLORIDE 10 ML SYRINGE IV SCH (21:13)
[2021-06-04] MEDS: FAMOTIDINE/PF 20 MG/2 ML VIAL IV SCH (21:16)
[2021-06-04] MEDS: DEXTROSE 5%-NS 1,000 ML IV SCH (22:19)
[2021-06-04 22:24] LABS: Appearance,Urine CLEAR (Clear); Bilirubin,Urine Negative (Negative); Color,Urine STRAW; Culture Indicated,Urine No; Glucose,Urine (UA) >=500 mg/dL (Negative); Ketones,Urine 20 mg/dL (Negative); Leukocyte Esterase,Urine Negative /uL (Negative); Mucus,Urine FEW /hpf; Nitrate,Urine Negative (Negative); Protein,Urine 100 mg/dL (Negative); Specific Gravity,Urine 1.007 (1.000-1.035); Urine Blood 0.03 mg/dL (Negative); Urine Hyaline Cast 3 /lph (0-2); Urine RBC < 1 /hpf (0-3); Urine Squamous Epithelial Cell 0 /hpf (0-4); Urine WBC 0 /hpf (0-4); Urobilinogen,Urine Negative
[2021-06-05] MEDS: LORazepam 2 MG/ML VIAL IV PRN ×2 (04:49→10:11)
[2021-06-05] MEDS: DEXTROSE 5%-NS 1,000 ML IV SCH ×2 (04:50→12:34)
[2021-06-05] MEDS: 0.9 % SODIUM CHLORIDE 10 ML SYRINGE IV SCH ×3 (04:50→20:17)
[2021-06-05 07:08] LABS: Basophils # (Auto) 0.04 K/mcL (0.00-0.30); Basophils % (Auto) 0.3 % (0.0-2.0); Eosinophils # (Auto) 0.02 K/mcL (0.00-0.70); Eosinophils % (Auto) 0.1 % (0.0-7.0); Hematocrit 33.1 % (40.1-51.0); Hemoglobin 11.4 g/dL (13.7-17.5); Lymphocytes # (Auto) 1.82 K/mcL (1.50-4.80); Lymphocytes % (Auto) 13.3 % (15.5-49.0); Mean Corpuscular HGB Conc 34.4 g/dL (31.0-36.0); Mean Platelet Volume 11.6 fL (7.4-10.4); Monocytes # (Auto) 1.37 K/mcL (0.10-0.90); Neutrophils % (Auto) 76.3 % (38.0-78.0); Platelet Count 282 K/mcL (140-440); RBC 3.85 M/mcL (4.63-6.08); Red Cell Distribution Width 12.8 % (11.5-14.5); WBC 13.7 K/mcL (4.5-11.0)
[2021-06-05] MEDS: INSULIN REGULAR, HUMAN 50 UNIT in 0.9 % SODIUM CHLORIDE 99.5 ML IV SCH (07:23)
[2021-06-05] MEDS: 0.9 % SODIUM CHLORIDE 250 ML IV SCH (07:24)
[2021-06-05 07:52] LABS: Beta Hydroxybutyrate 0.54 mmol/L (<0.27)
[2021-06-05 08:03] LABS: ALT/SGPT 8 U/L (<40); AST/SGOT 17 U/L (<40); Albumin 3.6 gm/dL (3.2-5.2); Albumin/Globulin Ratio 1.3 (1.0-2.3); Alkaline Phosphatase 103 U/L (39-117); Bilirubin,Direct < 0.2 mg/dL (0-0.3); Bilirubin,Total 0.3 mg/dL (0.1-1.0); Blood Urea Nitrogen 30 mg/dL (6-20); Calcium 8.2 mg/dL (8.6-10.4); Carbon Dioxide 38 mmol/L (22-30); Chloride 89 mmol/L (96-108); Globulin 2.7 gm/dL (2.2-3.7); Glomerular Filtration Rate 28; Glucose 108 mg/dL (70-105); Lactate Dehydrogenase 201 U/L (135-225); Phosphorous 3.6 mg/dL (2.5-4.5); Triglycerides 51 mg/dL (<150); Uric Acid 7.1 mg/dL (2.5-8.0)
[2021-06-05] MEDS: 0.9 % SODIUM CHLORIDE 1,000 ML IV SCH (08:34)
[2021-06-05] MEDS: FAMOTIDINE/PF 20 MG/2 ML VIAL IV SCH ×2 (09:06→20:16)
--- NOTE | 2021-06-05 09:10 | Internal Med Progress Note ---
SUBJECTIVE Subjective Patient information: Note initiated : 06/05/21 at 9:09 am Service Date, if different from initiated Date: [] Patient: Mauri Levine 35 y/o M admitted on 06/04/21 for Vomiting, elevated blood sugar. Chief Complaint: [] Interval history: History of present illness: Mr. Levine is a 35 year old M Male with a history of diabetes type 1 gastroparesis woke up Tuesday morning with nausea vomiting. This is not too uncommon to wake up and have a episode nausea vomiting but this time it did not go away. He was checking his sugars frequently and they seem to do okay for the first couple days but then today his sugars got really high and he continued have nausea vomiting thus presented to the ED. Sugars on plan care were greater than 700 his creatinine. But higher than usual. Had an elevated lactate. Labs are stable. Denies any respiratory symptoms or upper respiratory tract infections. UA is pending. No obvious source of infection in ED work-up. He got 4 L of NS and 20 units of regular insulin throughout the day. He had a prolonged QTC and thus caution was taken with antiemetics. We will try a scopolamine patch and IV Ativan. Started on insulin drip in the ED. 06/05 Some nausea and vomiting. Glucose much better. Hypokalemia. Creatinine improved. Review of Systems: denies headache/fever/chills/chest or abdominal pain/cough/dyspnea/diarrhea. Otherwise see above. Constitutional Vitals: Vital Signs Temp Pulse Resp BP Pulse Ox 98.6 F 97 H 17 180/102 99 06/05/21 08:00 06/05/21 08:00 06/05/21 08:00 06/05/21 08:00 06/05/21 08:00 Period Temp Pulse Resp BP Sys/Menard Pulse Ox Last 24 Hr 97 F-98.6 F 72-101 10-28 111-196/58-102 94-100 Intake and Output 06/04/21 06/05/21 06/05/21 21:59 05:59 13:59 Intake Total 2722033 210 Output Total 650 1100 525 Balance 2074 934 -315 Weight 80.428 kg Intake & Output: Intake & Output 06/04/21 06/05/21 06/05/21 21:59 05:59 13:59 Intake Total 2724 2034 210 Output Total 650 1100 525 Balance 4 934 -315 Weight 80.428 kg Intake: IV 2124 1634 210 Sodium Chloride 0.9% 1,000 ml @ 573 200 mls/hr IV .Q5H [facility] Rx#: [id number] Sodium Chloride 0.9% 250 ml @ 208 20 mls/hr IV .[id number] [facility] Rx#: [id number] Dextrose 5%-Ns IV Solution 1, 978 000 ml @ 150 mls/hr IV .Q6H40M [facility] Rx#:[id number] HumuLIN R 50 UNIT In Sodium 14 83 2 Chloride 0.9% 99.5 ml @ 5 UNIT/ HR 10 mls/hr IV DUR [facility] Rx#: [id number] Lactated Ringers 1,000 ml @ 2000 Wide Open IV [facility] Rx#: [id number] Potassium Chloride 20 Meq In 110 Dextrose 5% in Water 100 ml @ 67.5 mls/hr IV ONCE ONE Rx#: [id number] Oral 600 400 Output: Void Amount 550 1000 525 Emesis 100 100 Other: Urine Appearance Clear Clear Clear Urine Color Pale Pale Bright Yellow Urine Odor Normal Normal Exam: General: Alert, Awake, No acute Distress Eyes/N/T: EOMI, Head/Neck: neck supple, CV: Mildly tacky but regular, 2/6 SM, Pulm: Clear b/l, no wheezing/rhonchi/rales Abd: soft, nontender, +BS x4 Ext: no clubbing/cyanosis/edema Neuro: Alert, no focal deficits, moves all extremities, Skin: warm/dry OBJ DATA Labs CBC & Chem 7: 06/05/21 05:24 06/05/21 05:24 Labs: Abnormal Lab Results 06/05/21 06/05/21 06/05/21 05:24 05:24 05:23 WBC 13.7 H RBC 3.85 L Hgb 11.4 L Hct 33.1 L MPV 11.6 H Neut % (Auto) Lymph % (Auto) 13.3 L Lymph # (Auto) [place] # (Auto) 1.37 H Absolute Neutrophils 10.47 H POC Sodium Sodium Potassium 2.9 L* POC Chloride Chloride 89 L Carbon Dioxide 38 H POC Total CO2 Anion Gap 7.0 L POC BUN BUN 30 H Creatinine 2.8 H POC Creatinine Glucose 108 H POC Glucose Osmolality Calcium 8.2 L POC WB Ioniz Calcium Magnesium 2.9 H GGT Alkaline Phosphatase Triglycerides Beta-Hydroxybutyrate 0.54 H Urine Protein Urine Glucose (UA) Urine Ketones Hyaline Casts Urine Mucus 06/04/21 06/04/21 06/04/21 21:40 17:57 17:57 WBC RBC Hgb Hct MPV Neut % (Auto) Lymph % (Auto) Lymph # (Auto) [place] # (Auto) Absolute Neutrophils POC Sodium Sodium 131 L Potassium POC Chloride Chloride 75 L Carbon Dioxide 38 H POC Total CO2 Anion Gap 18.0 H POC BUN BUN 37 H Creatinine 3.4 H POC Creatinine Glucose 513 H* POC Glucose Osmolality 314 H Calcium POC WB Ioniz Calcium Magnesium 3.5 H GGT 7 L Alkaline Phosphatase 125 H Triglycerides 154 H Beta-Hydroxybutyrate 4.78 H Urine Protein 100 A Urine Glucose (UA) >=500 A Urine Ketones 20 A Hyaline Casts 3 H Urine Mucus Few A 06/04/21 06/04/21 08:51 08:51 WBC 12.5 H RBC Hgb Hct MPV 12.2 H Neut % (Auto) 89.0 H Lymph % (Auto) 5.3 L Lymph # (Auto) 0.66 L [place] # (Auto) Absolute Neutrophils 11.09 H POC Sodium 126 L Sodium Potassium POC Chloride 67 L Chloride Carbon Dioxide POC Total CO2 41 H Anion Gap POC BUN 37 H BUN Creatinine POC Creatinine 3.5 H Glucose POC Glucose > 700 H* Osmolality Calcium POC WB Ioniz Calcium 0.83 L Magnesium GGT Alkaline Phosphatase Triglycerides Beta-Hydroxybutyrate Urine Protein Urine Glucose (UA) Urine Ketones Hyaline Casts Urine Mucus Meds: Medications Acetaminophen (Acetaminophen 325 Mg Tablet) 650 mg PO Q6HP PRN; Protocol PRN Reason: Per Pain Protocol/Fever > 101 Albuterol/Ipratropium (Ipratropium/Albuterol 3 Ml Ampul.Neb) 3 ml NEB Q4HP PRN PRN Reason: Shortness Of Breath Diagnostic Test (Pha) (Accu-Chek 1 Each Strip) 1 each FS Q1 [facility] Last Admin: 06/05/21 08:10 Dose: 1 each Documented by: Enoxaparin Sodium (Enoxaparin 40 Mg/0.4 Ml Syringe) 40 mg SQ DAILY [facility] Famotidine (Famotidine/Pf 20 Mg/2 Ml Vial) 20 mg IV Q12 [facility] Last Admin: 06/05/21 09:06 Dose: 20 mg Documented by: Insulin Human Regular 50 unit/ (Sodium Chloride) 100 mls @ 10 mls/hr IV DUR [facility]; Protocol Last Titration: 06/05/21 08:20 Dose: 1 unit/hr, 2 mls/hr Documented by: Potassium Chloride 40 meq/ (Dextrose) 520 mls @ 130 mls/hr IV UD PRN PRN Reason: Potassium < 3 Last Admin: 06/05/21 09:06 Dose: 130 mls/hr Documented by: Magnesium Sulfate (Magnesium Sulfate) 2 gm in 50 mls @ 50 mls/hr IV UD PRN PRN Reason: Magnesium </= 1.6 Sodium Chloride (Sodium Chloride 0.9%) 250 mls @ 20 mls/hr IV .[id number] [facility] Last Admin: 06/05/21 07:24 Dose: 20 mls/hr Documented by: Dextrose/Sodium Chloride (Dextrose 5%-Ns Iv Solution) 1,000 mls @ 150 mls/hr IV .Q6H40M [facility] Last Admin: 06/05/21 04:50 Dose: 150 mls/hr Documented by: Lorazepam (Lorazepam 2 Mg/Ml Vial) 0.5 mg IV Q4-6HP PRN PRN Reason: Nausea Last Admin: 06/05/21 04:49 Dose: 0.5 mg Documented by: Metoclopramide HCl (Metoclopramide 10 Mg/2 Ml Vial) 10 mg IV Q12HP PRN PRN Reason: Nausea And Vomiting Polyethylene Glycol (Polyethylene Glycol 3350 17 Gm Packet) 17 gm PO DAILYP PRN PRN Reason: Constipation Potassium Chloride (Potassium Chloride 20 Meq Tablet) 40 meq PO UD PRN PRN Reason: Potssium is 3-3.5 Potassium Chloride (Potassium Chloride 20 Meq Tablet) 40 meq PO UD PRN PRN Reason: Potassium < 3 Scopolamine (Scopolamine 1 Patch Patch) 1 patch TOPICAL Q72H [facility] Last Admin: 06/04/21 21:26 Dose: 1 patch Documented by: Senna (Sennosides 1 Tablet) 2 tab PO DAILYP PRN PRN Reason: Constipation Sodium Chloride (0.9 % Sodium Chloride 10 Ml Syringe) 10 ml IV Q8 [facility] Last Admin: 06/05/21 04:50 Dose: Not Given Documented by: A/P Narrative A/P Narrative: A: *HHS/DKA overlap: *DM type I with Gastroparesis/Neuropathy: -A1c 8.4 (March) *Hypovolemia: improving *ROSALIO on CKD III (~2's): Follows with Dr. Mills -improving *Anemia, chronic *HTN: On coreg/clonidine/lisinopril *Anxiety/depression: *GERD: P: -Insulin gtt to insulin pump -IV fluids -Monitor electrolytes and replace -clear liquids, advance diet as able -Antiemetics -hold ACEI for ROSALIO, cont clonidine/coreg -ppx: Lovenox/H2 Time Spent With Patient Time: Total time spent is greater than 50% in coordination of care (as documented) at patient's floor/unit and/or counseling patient:
[2021-06-05] MEDS ORDERED: LABETALOL 5 MG/ML ML IV PRN (09:15)
[2021-06-05] MEDS: ENOXAPARIN 40 MG/0.4 ML SYRINGE SQ SCH (09:16)
[2021-06-05] MEDS ORDERED: MELATONIN 3 MG TABLET PO PRN (09:27)
--- NOTE | 2021-06-05 09:57 | EKG ---
[facility] Test Date: 2021-06-04 Pat Name: Mauri Levine Department: ED Room: Gender: Male Filler Operator: ARTHUR : 1985 Requested By: David Woods Order Number: [id number] Reading MD: Demetrius Interiano M.D. Measurements Intervals Martin Rate: 90 P: 63 TN: 149 QRS: 70 QRSD: 86 T: 91 QT: 455 QTc: 557 Interpretive Statements Sinus rhythm Biatrial enlargement LVH BY VOLTAGE Baseline wander in lead(s) V3 Electronically Signed On 06-05-2021 9:57:49 PST by Demetrius Interiano M.D. /store/M0/[id number]
--- NOTE | 2021-06-05 10:23 | XRay Report ---
CLINICAL INFORMATION: Dyspnea COMPARISON: 01/10/2021. TECHNIQUE: Portable FINDINGS: The heart size, mediastinum and pulmonary vessels are unremarkable. The lungs are clear. There are no effusions. The bones and soft tissues are within normal limits. IMPRESSION: Normal chest. Interpreted and Authenticated by: Demetrius Smart 06/05/21
[2021-06-05] MEDS ORDERED: LORazepam 1 MG TABLET PO PRN (10:26)
[2021-06-05] MEDS ORDERED: LORazepam 0.5 MG TABLET PO PRN (10:26)
[2021-06-05] MEDS: hydrALAZINE 20 MG/ML VIAL IV PRN ×2 (12:15→20:16)
[2021-06-05] MEDS ORDERED: 0.9 % SODIUM CHLORIDE 1,000 ML IV SCH (12:30)
[2021-06-05 12:35] LABS: Eosinophils % (Manual) 1 % (0-7); Lymphocytes % 11 % (15-49); Monocytes % (Manual) 6 % (1-12); Platelet Estimate NORMAL (Normal); RBC Morphology NORMAL (Normal); Reactive Lymphocytes 3 % (0-2); Segmented Neutrophils % 79 % (38-78)
[2021-06-05] MEDS: CARVEDILOL 6.25 MG TABLET PO SCH ×2 (14:14→17:45)
--- NOTE | 2021-06-05 15:15 | Discharge Summary ---
Discharge Provider Provider Patient information: Note initiated : 06/05/21 at 3:12 pm Service Date, if different from initiated Date: [] Patient: Mauri Levine 35 y/o M admitted on 06/04/21 for Vomiting, elevated blood sugar. Chief Complaint: [] Date of admission: 06/04/21 19:09 Discharge date: 06/06/21 Primary care physician: Flo Peña MD Consults: 06/04/21 Consult to Physician [CONS] Stat Comment: Consulting Provider: Deangelo Basilio Reason For Exam: Physician to Consult Discharge Meds Discharge Medications Home Medications atorvastatin 40 mg tablet 40 mg PO HS 02/13/19 [History Confirmed 06/04/21 Last Taken 06/02/21 09:00] aluminum-mag hydroxide-simethicone 400 mg-400 mg-40 mg/5 mL oral susp (Mylanta Maximum Strength) 10 ml PO TID PRN 04/04/19 [History Confirmed 06/04/21 Last Taken 06/04/21 09:00] calcium carbonate 300 mg (750 mg) chewable tablet (Tums) 600 mg PO ONCE tab 02/11/21 [History Confirmed 06/04/21 Last Taken 05/28/21] cholecalciferol (vitamin D3) 50 mcg (2,000 unit) capsule 50 mcg PO QDAY 02/11/21 [History Confirmed 06/04/21 Last Taken 05/18/21] cyanocobalamin (vitamin B-12) 1,000 mcg capsule 1,000 mcg PO QHS cap 02/11/21 [History Confirmed 06/04/21 Last Taken 05/18/21] fluvoxamine 100 mg tablet 100 mg PO QHS 02/11/21 [History Confirmed 06/04/21 Last Taken 06/01/21 09:00] melatonin 10 mg tablet 10 mg PO HS PRN 02/11/21 [History Confirmed 06/04/21 Last Taken 05/31/21 21:00] omeprazole 20 mg capsule,delayed release 20 mg PO BID 02/11/21 [History Confirmed 06/04/21 Last Taken 05/30/21 21:00] tadalafil 10 mg tablet (Cialis) 10 mg PO QHS PRN tab 02/11/21 [History Co nfirmed 06/04/21 Last Taken 05/18/21 21:00] calcium cit 250 mg-ergocalciferol (vit D2) 2.5 mcg (100 unit) tablet (Farshad- Citrate) 1 tab PO QHS tab 03/26/21 [History Confirmed 06/04/21 Last Taken 05/31/21 09:00] carvedilol 6.25 mg tablet 6.25 mg PO BID #60 tab 03/26/21 [Rx Confirmed 06/04/21 Last Taken 06/01/21 09:00] clonidine 0.2 mg/24 hr weekly transdermal patch 1 patch TRANSDERMAL QWEEK #4 ea 03/26/21 [Rx Confirmed 06/04/21 Last Taken 06/02/21 09:00] gabapentin 300 mg capsule 600 mg PO BID cap 03/26/21 [History Confirmed 06/04/21 Last Taken 04/17/21] insulin aspart U-100 100 unit/mL subcutaneous solution (Novolog U-100 Insulin aspart) See Rx Instructions .ROUTE .COMPLEX 03/26/21 [History Confirmed 06/04/21 Last Taken 06/04/21 18:00] ketamine 50mg/ml nasal spray 1 spray INTRANASAL PRN PRN 03/26/21 [History Confirmed 06/04/21 Last Taken 06/03/21 21:00] nortriptyline 10 mg capsule 10 mg PO QHS 03/26/21 [History Confirmed 06/04/21 Last Taken 05/18/21 21:00] lisinopril 10 mg tablet 10 mg PO QDAY #30 tab 04/21/21 [Rx Confirmed 06/04/21 Last Taken 05/31/21 21:00] lorazepam 1 mg tablet See Rx Instructions .ROUTE .COMPLEX PRN #10 tab 04/21/21 [Rx Confirmed 06/04/21 Last Taken 05/31/21 21:00] COURSE Hospital Course Hospital course: History of present illness: Mr. Levine is a 35 year old M Male with a history of diabetes type 1 gastroparesis woke up Tuesday morning with nausea vomiting. This is not too uncommon to wake up and have a episode nausea vomiting but this time it did not go away. He was checking his sugars frequently and they seem to do okay for the first couple days but then today his sugars got really high and he continued have nausea vomiting thus presented to the ED. Sugars on plan care were greater than 700 his creatinine. But higher than usual. Had an elevated lactate. Labs are stable. Denies any respiratory symptoms or upper respiratory tract infections. UA is pending. No obvious source of infection in ED work-up. He got 4 L of NS and 20 units of regular insulin throughout the day. He had a prolonged QTC and thus caution was taken with antiemetics. We will try a scopolamine patch and IV Ativan. Started on insulin drip in the ED. 06/05 Some nausea and vomiting. Glucose much better. Hypokalemia. Creatinine improved. 06/06 Patient feeling well and ready to go home. A: *HHS/DKA overlap: *DM type I with Gastroparesis/Neuropathy: -A1c 8.4 (March) *Hypovolemia: improving *ROSALIO on CKD III (~2's): Follows with Dr. Mills *Anemia, chronic *HTN: On coreg/clonidine/lisinopril *Anxiety/depression: *GERD: Discharge diagnosis: DKA/HHS Secondary discharge diagnosis: Diabetes type 1 hypovolemia acute kidney injury chronic anemia hypertension anxiety depression GERD Time Spent with Patient Time attestation: Total time spent providing and/or coordinating discharge services: Time spent: Greater than 30 minutes EXAM Constitutional Vitals: Temp Pulse Resp BP Pulse Ox 98.6 F 85 17 175/81 100 06/05/21 08:00 06/05/21 12:13 06/05/21 12:13 06/05/21 12:00 06/05/21 12:13 Discharge Data Data Completed and Pending Labs on day of discharge: Labs from last 24 hours 06/05/21 06/05/21 06/05/21 15:05 10:38 05:24 WBC RBC Hgb Hct MCV MCH MCHC RDW Plt Count MPV Neut % (Auto) Lymph % (Auto) [place] % (Auto) Eos % (Auto) Baso % (Auto) Lymph # (Auto) [place] # (Auto) Eos # (Auto) Baso # (Auto) Seg Neutrophils % 79 H Lymphocytes % 11 L Monocytes % (Manual) 6 Eosinophils % (Manual) 1 Absolute Neutrophils Reactive Lymphocytes 3 H Platelet Estimate Normal RBC Morphology Normal Sodium Pending Potassium Pending Chloride Pending Carbon Dioxide Pending Anion Gap Pending BUN Pending Creatinine Pending GFR Calculation Pending Glucose Pending Osmolality 292 Uric Acid Calcium Pending Phosphorus Magnesium Total Bilirubin Direct Bilirubin GGT AST ALT Alkaline Phosphatase Lactate Dehydrogenase Total Protein Albumin Globulin Albumin/Globulin Ratio Triglycerides Beta-Hydroxybutyrate Urine Color Urine Appearance Urine pH Ur Specific [place] Urine Protein Urine Glucose (UA) Urine Ketones Urine Occult Blood Urine Nitrate Urine Bilirubin Urine Urobilinogen Ur Leukocyte Esterase Urine RBC Urine WBC Ur Squamous Epith Cells Urine Bacteria Hyaline Casts Urine Mucus Ur Culture Indicated? 06/05/21 06/05/21 06/05/21 05:24 05:24 05:23 WBC 13.7 H RBC 3.85 L Hgb 11.4 L Hct 33.1 L MCV 86.0 MCH 29.6 MCHC 34.4 RDW 12.8 Plt Count 282 MPV 11.6 H Neut % (Auto) 76.3 Lymph % (Auto) 13.3 L [place] % (Auto) 10.0 Eos % (Auto) 0.1 Baso % (Auto) 0.3 Lymph # (Auto) 1.82 [place] # (Auto) 1.37 H Eos # (Auto) 0.02 Baso # (Auto) 0.04 Seg Neutrophils % Lymphocytes % Monocytes % (Manual) Eosinophils % (Manual) Absolute Neutrophils 10.47 H Reactive Lymphocytes Platelet Estimate RBC Morphology Sodium 134 Potassium 2.9 L* Chloride 89 L Carbon Dioxide 38 H Anion Gap 7.0 L BUN 30 H Creatinine 2.8 H GFR Calculation 28 Glucose 108 H Osmolality Uric Acid 7.1 Calcium 8.2 L Phosphorus 3.6 Magnesium 2.9 H Total Bilirubin 0.3 Direct Bilirubin < 0.2 GGT 10 AST 17 ALT 8 Alkaline Phosphatase 103 Lactate Dehydrogenase 201 Total Protein 6.3 Albumin 3.6 Globulin 2.7 Albumin/Globulin Ratio 1.3 Triglycerides 51 Beta-Hydroxybutyrate 0.54 H Urine Color Urine Appearance Urine pH Ur Specific [place] Urine Protein Urine Glucose (UA) Urine Ketones Urine Occult Blood Urine Nitrate Urine Bilirubin Urine Urobilinogen Ur Leukocyte Esterase Urine RBC Urine WBC Ur Squamous Epith Cells Urine Bacteria Hyaline Casts Urine Mucus Ur Culture Indicated? 06/04/21 06/04/21 06/04/21 21:40 17:57 17:57 WBC RBC Hgb Hct MCV MCH MCHC RDW Plt Count MPV Neut % (Auto) Lymph % (Auto) [place] % (Auto) Eos % (Auto) Baso % (Auto) Lymph # (Auto) [place] # (Auto) Eos # (Auto) Baso # (Auto) Seg Neutrophils % Lymphocytes % Monocytes % (Manual) Eosinophils % (Manual) Absolute Neutrophils Reactive Lymphocytes Platelet Estimate RBC Morphology Sodium 131 L Potassium 3.8 Chloride 75 L Carbon Dioxide 38 H Anion Gap 18.0 H BUN 37 H Creatinine 3.4 H GFR Calculation 22 Glucose 513 H* Osmolality 314 H Uric Acid 7.9 Calcium 8.6 Phosphorus 3.8 Magnesium 3.5 H Total Bilirubin 0.4 Direct Bilirubin < 0.2 GGT 7 L AST 13 ALT 9 Alkaline Phosphatase 125 H Lactate Dehydrogenase 167 Total Protein 7.0 Albumin 3.8 Globulin 3.2 Albumin/Globulin Ratio 1.2 Triglycerides 154 H Beta-Hydroxybutyrate 4.78 H Urine Color Straw Urine Appearance Clear Urine pH 9.0 Ur Specific [place] 1.007 Urine Protein 100 A Urine Glucose (UA) >=500 A Urine Ketones 20 A Urine Occult Blood 0.03 Urine Nitrate Negative Urine Bilirubin Negative Urine Urobilinogen Negative Ur Leukocyte Esterase Negative Urine RBC < 1 Urine WBC 0 Ur Squamous Epith Cells 0 Urine Bacteria None Hyaline Casts 3 H Urine Mucus Few A Ur Culture Indicated? No Discharge Plan Patient/Caregiver Discharge Instructions Activity: increase activity as tolerated Diet: Consistent Carbohydrate Prescriptions: Continued lisinopril 10 mg tablet 10 mg PO QDAY Qty: 30 1RF Rx Instructions: 1 tab QD noon, if no N/V or dehydration lorazepam 1 mg tablet See Rx Instructions .ROUTE .COMPLEX PRN (Reason: nausea and vomiting) Qty: 10 0RF Rx Instructions: 0.5mg TID for panic attack,1-2mg daily for nausea/vomiting nortriptyline 10 mg capsule 10 mg PO QHS 0RF Farshad-Citrate 250 mg-2.5 mcg (100 unit) tablet 1 tab PO QHS 0RF ketamine 50mg/ml nasal spray 50 mg 1 spray intranasal PRN PRN (Reason: nausea and vomiting) 0RF carvedilol 6.25 mg tablet 6.25 mg PO BID Qty: 60 2RF Rx Instructions: must administer with a meal/food clonidine 0.2 mg/24 hr patch weekly 1 patch transdermal QWEEK Qty: 4 2RF omeprazole 20 mg capsule,delayed release(DR/EC) 20 mg PO BID 0RF fluvoxamine 100 mg tablet 100 mg PO QHS 0RF tadalafil [Cialis] 10 mg tablet 10 mg PO QHS PRN (Reason: Sexual Activity) 0RF Rx Instructions: administer approximately 30min before sexual activity; do not use more than 1 dose per 24hrs cyanocobalamin (vitamin B-12) 1,000 mcg capsule 1,000 mcg PO QHS 0RF cholecalciferol (vitamin D3) 50 mcg (2,000 unit) capsule 50 mcg PO QDAY 0RF melatonin 10 mg tablet 10 mg PO HS PRN (Reason: Insomnia) 0RF calcium carbonate [Tums] 300 mg (750 mg) tablet,chewable 600 mg PO ONCE 0RF alum-mag hydroxide-simeth [Mylanta Maximum Strength] 400-400-40 mg/5 mL suspension 10 ml PO TID PRN (Reason: Nausea) 0RF insulin aspart U-100 [Novolog U-100 Insulin aspart] 100 unit/mL solution See Rx Instructions .ROUTE .COMPLEX 0RF Rx Instructions: via insulin pump. 3961-0042 basal rate 1.2, 7401-4173 basal rate 1.1, 0700- 1900 basal rate 1.0, 0298-4095 basal rate 1.2 gabapentin 300 mg capsule 600 mg PO BID 0RF Label Comments: pt states he no longer takes atorvastatin 40 MG tablet 40 mg PO HS 0RF Follow Up Plan Follow up with: Flo Peña MD [Primary Care Provider] - Patient Disposition: Home, Self-Care Prognosis: Fair Overall status at discharge: patient is progressing back to baseline Discharge Orders: Discharge Order (Routine); Ordered 06/06/21 Ordered By: Deangelo Basilio
--- NOTE | 2021-06-05 16:06 | EKG ---
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 Measurements Intervals [place] Rate: 106 P: 72 VA: 146 QRS: 80 QRSD: 93 T: 97 QT: 378 QTc: 502 Interpretive Statements Sinus tachycardia Biatrial enlargement Prolonged QT interval Electronically Signed On 06-05-2021 16:06:36 PST by Demetrius Interiano M.D. /store/[email or web address]/[id number]
[2021-06-05 16:07] LABS: Blood Urea Nitrogen 25 mg/dL (6-20); Calcium 8.5 mg/dL (8.6-10.4); Carbon Dioxide 29 mmol/L (22-30); Chloride 91 mmol/L (96-108); Glomerular Filtration Rate 36; Glucose 228 mg/dL (70-105)
--- NOTE | 2021-06-05 16:08 | EKG ---
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 Measurements Intervals [place] Rate: 105 P: 63 [place]: 151 QRS: 71 QRSD: 85 T: 83 QT: 395 QTc: 523 Interpretive Statements Sinus tachycardia LAE, consider biatrial enlargement Prolonged QT interval Electronically Signed On 06-05-2021 16:07:49 PST by Demetrius Interiano M.D. /store/[email or web address]/[id number]
[2021-06-05] MEDS: INSULIN LISPRO 1 UNIT/0.01 ML UNIT SQ SCH ×2 (16:48→20:06)
[2021-06-05] MEDS: GABAPENTIN 300 MG CAPSULE PO SCH (20:15)
[2021-06-05] MEDS ORDERED: NORTRIPTYLINE 10 MG CAPSULE PO SCH (21:00)
[2021-06-05] MEDS ORDERED: ATORVASTATIN 40 MG TABLET PO SCH (21:00)
[2021-06-06] MEDS: INSULIN LISPRO 1 UNIT/0.01 ML UNIT SQ SCH ×3 (00:25→07:39)
[2021-06-06] MEDS: hydrALAZINE 20 MG/ML VIAL IV PRN (04:09)
[2021-06-06] MEDS: 0.9 % SODIUM CHLORIDE 10 ML SYRINGE IV SCH (04:10)
[2021-06-06 06:50] LABS: Basophils # (Auto) 0.03 K/mcL (0.00-0.30); Basophils % (Auto) 0.3 % (0.0-2.0); Eosinophils # (Auto) 0.03 K/mcL (0.00-0.70); Eosinophils % (Auto) 0.3 % (0.0-7.0); Hematocrit 35.3 % (40.1-51.0); Hemoglobin 11.8 g/dL (13.7-17.5); Lymphocytes % (Auto) 28.6 % (15.5-49.0); Mean Cell Volume 86.7 fL (80.0-100.0); Mean Corpuscular HGB Conc 33.4 g/dL (31.0-36.0); Mean Platelet Volume 11.3 fL (7.4-10.4); Monocytes # (Auto) 0.73 K/mcL (0.10-0.90); Monocytes % (Auto) 8.4 % (1.0-12.0); Neutrophils % (Auto) 62.4 % (38.0-78.0); Platelet Count 261 K/mcL (140-440); RBC 4.07 M/mcL (4.63-6.08); Red Cell Distribution Width 12.6 % (11.5-14.5); WBC 8.7 K/mcL (4.5-11.0)
[2021-06-06 07:19] LABS: ALT/SGPT 10 U/L (<40); AST/SGOT 18 U/L (<40); Albumin 3.7 gm/dL (3.2-5.2); Albumin/Globulin Ratio 1.4 (1.0-2.3); Alkaline Phosphatase 98 U/L (39-117); Bilirubin,Direct < 0.2 mg/dL (0-0.3); Bilirubin,Total 0.3 mg/dL (0.1-1.0); Blood Urea Nitrogen 16 mg/dL (6-20); Calcium 8.5 mg/dL (8.6-10.4); Carbon Dioxide 29 mmol/L (22-30); Chloride 94 mmol/L (96-108); Globulin 2.7 gm/dL (2.2-3.7); Glomerular Filtration Rate 40; Glucose 93 mg/dL (70-105); Lactate Dehydrogenase 193 U/L (135-225); Phosphorous 1.9 mg/dL (2.5-4.5); Triglycerides 84 mg/dL (<150); Uric Acid 5.2 mg/dL (2.5-8.0)
[2021-06-06] MEDS ORDERED: NEUTRA PHOS 1 PACKET PO ONE (07:58)
--- NOTE | 2021-06-06 07:59 | Internal Med Progress Note ---
SUBJECTIVE Subjective Patient information: Note initiated : 06/06/21 at 7:56 am Service Date, if different from initiated Date: [] Patient: Mauri Levine 35 y/o M admitted on 06/04/21 for Vomiting, elevated blood sugar. Chief Complaint: [] Interval history: History of present illness: Mr. Levine is a 35 year old M Male with a history of diabetes type 1 gastroparesis woke up Tuesday morning with nausea vomiting. This is not too uncommon to wake up and have a episode nausea vomiting but this time it did not go away. He was checking his sugars frequently and they seem to do okay for the first couple days but then today his sugars got really high and he continued have nausea vomiting thus presented to the ED. Sugars on plan care were greater than 700 his creatinine. But higher than usual. Had an elevated lactate. Labs are stable. Denies any respiratory symptoms or upper respiratory tract infections. UA is pending. No obvious source of infection in ED work-up. He got 4 L of NS and 20 units of regular insulin throughout the day. He had a prolonged QTC and thus caution was taken with antiemetics. We will try a scopolamine patch and IV Ativan. Started on insulin drip in the ED. 06/05 Some nausea and vomiting. Glucose much better. Hypokalemia. Creatinine improved. Review of Systems: denies headache/fever/chills/chest or abdominal pain/cough/dyspnea/diarrhea. Otherwise see above. Constitutional Vitals: Vital Signs Temp Pulse Resp BP Pulse Ox 100.1 F H 75 23 H 144/76 99 06/06/21 00:01 06/06/21 06:01 06/05/21 16:00 06/06/21 06:01 06/06/21 06:01 Period Temp Pulse Resp BP Sys/Menard Pulse Ox Last 24 Hr 98.6 F-100.1 F 64-97 16-23 132-180/71-102 96-100 Intake and Output 06/05/21 06/06/21 06/06/21 21:59 05:59 13:59 Intake Total 1491 1380 Output Total 300 1200 500 Balance 1191 180 -500 Weight 77.836 kg Intake & Output: Intake & Output 06/05/21 06/06/21 06/06/21 21:59 05:59 13:59 Intake Total 1491 1380 Output Total 300 1200 500 Balance 1191 180 -500 Weight 77.836 kg Intake: IV 741 1000 Sodium Chloride 0.9% 1,000 ml @ 1000 100 mls/hr IV .Q10H [facility] Rx#: [id number] Sodium Chloride 0.9% 250 ml @ 221 20 mls/hr IV .[id number] [facility] Rx#: [id number] HumuLIN R 50 UNIT In Sodium 0 Chloride 0.9% 99.5 ml @ 5 UNIT/ HR 10 mls/hr IV DUR [facility] Rx#: [id number] Potassium Chloride 40 Meq In 520 Dextrose 5% in Water 500 ml @ 130 mls/hr IV UD PRN Rx#: [id number] Oral 750 380 Output: Void Amount 300 1200 500 Other: Meal Dinner Percent of Meal Consumed 75% Urine Appearance Clear Clear Clear Urine Color Bright Yellow Pale Bright Yellow Urine Odor Normal Normal # Emeses 0 Exam: General: Alert, Awake, No acute Distress Eyes/N/T: EOMI, Head/Neck: neck supple, CV: Mildly tacky but regular, 2/6 SM, Pulm: Clear b/l, no wheezing/rhonchi/rales Abd: soft, nontender, +BS x4 Ext: no clubbing/cyanosis/edema Neuro: Alert, no focal deficits, moves all extremities, Skin: warm/dry OBJ DATA Labs CBC & Chem 7: 06/06/21 05:26 06/06/21 05:26 Labs: Abnormal Lab Results 06/06/21 06/06/21 06/05/21 05:26 05:26 15:05 WBC RBC 4.07 L Hgb 11.8 L Hct 35.3 L MPV 11.3 H Neut % (Auto) Lymph % (Auto) Lymph # (Auto) [place] # (Auto) Seg Neutrophils % Lymphocytes % Absolute Neutrophils Reactive Lymphocytes POC Sodium Sodium 130 L Potassium POC Chloride Chloride 94 L 91 L Carbon Dioxide POC Total CO2 Anion Gap POC BUN BUN 25 H Creatinine 2.1 H 2.3 H POC Creatinine Glucose 228 H POC Glucose Osmolality Calcium 8.5 L 8.5 L POC WB Ioniz Calcium Phosphorus 1.9 L Magnesium GGT Alkaline Phosphatase Triglycerides Beta-Hydroxybutyrate Urine Protein Urine Glucose (UA) Urine Ketones Hyaline Casts Urine Mucus 06/05/21 06/05/21 06/05/21 10:38 05:24 05:24 WBC 13.7 H RBC 3.85 L Hgb 11.4 L Hct 33.1 L MPV 11.6 H Neut % (Auto) Lymph % (Auto) 13.3 L Lymph # (Auto) [place] # (Auto) 1.37 H Seg Neutrophils % 79 H Lymphocytes % 11 L Absolute Neutrophils 10.47 H Reactive Lymphocytes 3 H POC Sodium Sodium Potassium 2.9 L* POC Chloride Chloride 89 L Carbon Dioxide 38 H POC Total CO2 Anion Gap 7.0 L POC BUN BUN 30 H Creatinine 2.8 H POC Creatinine Glucose 108 H POC Glucose Osmolality Calcium 8.2 L POC WB Ioniz Calcium Phosphorus Magnesium 2.9 H GGT Alkaline Phosphatase Triglycerides Beta-Hydroxybutyrate Urine Protein Urine Glucose (UA) Urine Ketones Hyaline Casts Urine Mucus 06/05/21 06/04/21 06/04/21 05:23 21:40 17:57 WBC RBC Hgb Hct MPV Neut % (Auto) Lymph % (Auto) Lymph # (Auto) [place] # (Auto) Seg Neutrophils % Lymphocytes % Absolute Neutrophils Reactive Lymphocytes POC Sodium Sodium 131 L Potassium POC Chloride Chloride 75 L Carbon Dioxide 38 H POC Total CO2 Anion Gap 18.0 H POC BUN BUN 37 H Creatinine 3.4 H POC Creatinine Glucose 513 H* POC Glucose Osmolality 314 H Calcium POC WB Ioniz Calcium Phosphorus Magnesium 3.5 H GGT 7 L Alkaline Phosphatase 125 H Triglycerides 154 H Beta-Hydroxybutyrate 0.54 H Urine Protein 100 A Urine Glucose (UA) >=500 A Urine Ketones 20 A Hyaline Casts 3 H Urine Mucus Few A 06/04/21 06/04/21 06/04/21 17:57 08:51 08:51 WBC 12.5 H RBC Hgb Hct MPV 12.2 H Neut % (Auto) 89.0 H Lymph % (Auto) 5.3 L Lymph # (Auto) 0.66 L [place] # (Auto) Seg Neutrophils % Lymphocytes % Absolute Neutrophils 11.09 H Reactive Lymphocytes POC Sodium 126 L Sodium Potassium POC Chloride 67 L Chloride Carbon Dioxide POC Total CO2 41 H Anion Gap POC BUN 37 H BUN Creatinine POC Creatinine 3.5 H Glucose POC Glucose > 700 H* Osmolality Calcium POC WB Ioniz Calcium 0.83 L Phosphorus Magnesium GGT Alkaline Phosphatase Triglycerides Beta-Hydroxybutyrate 4.78 H Urine Protein Urine Glucose (UA) Urine Ketones Hyaline Casts Urine Mucus Meds: Medications Acetaminophen (Acetaminophen 325 Mg Tablet) 650 mg PO Q6HP PRN; Protocol PRN Reason: Per Pain Protocol/Fever > 101 Albuterol/Ipratropium (Ipratropium/Albuterol 3 Ml Ampul.Neb) 3 ml NEB Q4HP PRN PRN Reason: Shortness Of Breath Atorvastatin Calcium (Atorvastatin 40 Mg Tablet) 40 mg PO HS [facility] Last Admin: 06/05/21 20:16 Dose: 40 mg Documented by: Carvedilol (Carvedilol 6.25 Mg Tablet) 6.25 mg PO BIDCC [facility] Last Admin: 06/05/21 17:45 Dose: 6.25 mg Documented by: Clonidine HCl (Clonidine Tts 2 1 Patch Patch) 1 patch TD Q7D [facility] Diagnostic Test (Pha) (Accu-Chek 1 Each Strip) 1 each FS Q4 [facility] Last Admin: 06/06/21 07:39 Dose: 1 each Documented by: Enoxaparin Sodium (Enoxaparin 40 Mg/0.4 Ml Syringe) 40 mg SQ DAILY [facility] Last Admin: 06/05/21 09:16 Dose: 40 mg Documented by: Famotidine (Famotidine/Pf 20 Mg/2 Ml Vial) 20 mg IV Q12 [facility] Last Admin: 06/05/21 20:16 Dose: 20 mg Documented by: Gabapentin (Gabapentin 300 Mg Capsule) 600 mg PO BID [facility] Last Admin: 06/05/21 20:15 Dose: 600 mg Documented by: Hydralazine HCl (Hydralazine 20 Mg/Ml Vial) 0 mg IV Q2HP PRN PRN Reason: Hypertension Last Admin: 06/06/21 04:09 Dose: 10 mg Documented by: Potassium Chloride 40 meq/ (Dextrose) 520 mls @ 130 mls/hr IV UD PRN PRN Reason: Potassium < 3 Last Infusion: 06/05/21 16:50 Dose: Infused Documented by: Magnesium Sulfate (Magnesium Sulfate) 2 gm in 50 mls @ 50 mls/hr IV UD PRN PRN Reason: Magnesium </= 1.6 Insulin Human Lispro (Insulin Lispro 1 Unit/0.01 Ml Unit) 0 unit SQ Q4H [facility]; Protocol Last Admin: 06/06/21 07:39 Dose: Not Given Documented by: Labetalol HCl (Labetalol 5 Mg/Ml Ml) 0 mg IV Q2HP PRN PRN Reason: Hypertension Lorazepam (Lorazepam 2 Mg/Ml Vial) 0.5 mg IV Q4-6HP PRN PRN Reason: Nausea Last Admin: 06/05/21 10:11 Dose: 0.5 mg Documented by: Lorazepam (Lorazepam 0.5 Mg Tablet) 0.5 mg PO TIDP PRN PRN Reason: ANXIETY/SEDATION Last Admin: 06/05/21 20:15 Dose: 0.5 mg Documented by: Lorazepam (Lorazepam 1 Mg Tablet) 1 - 2 mg PO DAILYP PRN PRN Reason: Nausea And Vomiting Melatonin (Melatonin 3 Mg Tablet) 9 mg PO HSP PRN PRN Reason: Insomnia Metoclopramide HCl (Metoclopramide 10 Mg/2 Ml Vial) 10 mg IV Q12HP PRN PRN Reason: Nausea And Vomiting Last Admin: 06/05/21 10:12 Dose: 5 mg Documented by: Nortriptyline HCl (Nortriptyline 10 Mg Capsule) 10 mg PO QHS [facility] Last Admin: 06/05/21 20:15 Dose: 10 mg Documented by: Fluvoxamine 100 Mg (Tablet) 1 dose PO QHS [facility] Last Admin: 06/05/21 20:18 Dose: Not Given Documented by: Polyethylene Glycol (Polyethylene Glycol 3350 17 Gm Packet) 17 gm PO DAILYP PRN PRN Reason: Constipation Potassium Chloride (Potassium Chloride 20 Meq Tablet) 40 meq PO UD PRN PRN Reason: Potssium is 3-3.5 Potassium Chloride (Potassium Chloride 20 Meq Tablet) 40 meq PO UD PRN PRN Reason: Potassium < 3 Scopolamine (Scopolamine 1 Patch Patch) 1 patch TOPICAL Q72H [facility] Last Admin: 06/04/21 21:26 Dose: 1 patch Documented by: Senna (Sennosides 1 Tablet) 2 tab PO DAILYP PRN PRN Reason: Constipation Sodium Chloride (0.9 % Sodium Chloride 10 Ml Syringe) 10 ml IV Q8 [facility] Last Admin: 06/06/21 04:10 Dose: 10 ml Documented by: A/P Narrative A/P Narrative: A: *HHS/DKA overlap: *DM type I with Gastroparesis/Neuropathy: -A1c 8.4 (March) *Hypovolemia: improving *ROSALIO on CKD III (~2's): Follows with Dr. Mills -improving *Anemia, chronic *HTN: On coreg/clonidine/lisinopril *Anxiety/depression: *GERD: P: -Insulin gtt to insulin pump -IV fluids -Monitor electrolytes and replace -clear liquids, advance diet as able -Antiemetics -hold ACEI for ROSALIO, cont clonidine/coreg -ppx: Lovenox/H2 Time Spent With Patient Time: Total time spent is greater than 50% in coordination of care (as documented) at patient's floor/unit and/or counseling patient:
[2021-06-06] MEDS: CARVEDILOL 6.25 MG TABLET PO SCH (08:33)
[2021-06-06] MEDS: GABAPENTIN 300 MG CAPSULE PO SCH (08:33)
[2021-06-06] MEDS: FAMOTIDINE/PF 20 MG/2 ML VIAL IV SCH (08:41)
[2021-06-06] MEDS: ENOXAPARIN 40 MG/0.4 ML SYRINGE SQ SCH (08:44)
[2021-06-06] MEDS ORDERED: POTASSIUM PHOSPHATE 20 MEQ in DEXTROSE 5% IN WATER 250 ML IV ONE (09:00)
[2021-06-06] MEDS ORDERED: HEPARIN SODIUM,PORCINE/PF 500 UNIT/5 ML SYRINGE IV ONE (10:27)
[2021-06-09] MEDS ORDERED: cloNIDine TTS 2 1 PATCH PATCH TD SCH (09:00)
== END 2021-06-06 11:30 | disposition home or self-care (01) | DRG 638 ==
LOC: ED 08:22 → ICU 19:09
PROVIDERS: ADMIT Internal Medicine; ATTEND Internal Medicine

== ENCOUNTER 2021-08-02 12:48 | Observation (INO) ==
[2021-08-02] MEDS ORDERED: ONDANSETRON 4 MG/2 ML VIAL IV ONE ×2 (13:02→16:54)
[2021-08-02] MEDS ORDERED: PROMETHAZINE 25 MG/ML VIAL IV ONE (13:02)
[2021-08-02] MEDS ORDERED: 0.9 % SODIUM CHLORIDE 1,000 ML IV ONE (13:02)
--- NOTE | 2021-08-02 13:06 | Emergency Department Note ---
HPI General Chief complaint: Nausea/Vomiting/Diarrhea Stated complaint: gastroparesis Time Seen by Provider: 08/02/21 12:52 Source: patient Mode of arrival: wheelchair Limitations: no limitations History of Present Illness HPI Narrative: Narrative: 35 yo M w/ h/o DM1 complicated by gastroparesis requiring stimulator placement and previous episodes of DKA p/w N/V. He reports two days of N/V, w/ inability to tolerate any PO w/o emesis. He feels that this is similar to previous episodes of gastroparesis and not w/ previous episodes of DKA. He has tried zofran at home w/o relief. He denies abdominal pain, diarrhea, F/C, CP, SOB, or any other Sx at this time. He reports previous good response during his multiple ED visits to zofran and phenergan. Related Data Home Medications Medication Instructions Recorded Confirmed atorvastatin 40 mg tablet 40 mg PO HS 02/13/19 08/02/21 aluminum-mag hydroxide-simethicone 10 ml PO TID PRN 04/04/19 08/02/21 400 mg-400 mg-40 mg/5 mL oral susp (Mylanta Maximum Strength) calcium carbonate 300 mg (750 mg) 600 mg PO ONCE tab 02/11/21 08/02/21 chewable tablet (Tums) cholecalciferol (vitamin D3) 50 50 mcg PO QDAY 02/11/21 08/02/21 mcg (2,000 unit) capsule cyanocobalamin (vitamin B-12) 1,000 mcg PO QHS cap 02/11/21 08/02/21 1,000 mcg capsule melatonin 10 mg tablet 10 mg PO HS PRN 02/11/21 08/02/21 omeprazole 20 mg capsule,delayed 20 mg PO BID 02/11/21 08/02/21 release tadalafil 10 mg tablet (Cialis) 10 mg PO QHS PRN tab 02/11/21 08/02/21 calcium cit 250 mg-ergocalciferol 1 tab PO QHS tab 03/26/21 08/02/21 (vit D2) 2.5 mcg (100 unit) tablet (Farshad-Citrate) insulin aspart U-100 100 unit/mL See Rx Instructions .ROUTE .COMPLEX 03/26/21 08/02/21 subcutaneous solution (Novolog U-100 Insulin aspart) ketamine 50mg/ml nasal spray 1 - 3 spray INTRANASAL PRN 07/03/21 08/02/21 gabapentin 300 mg capsule 600 mg PO BID PRN cap 07/09/21 08/02/21 Previous Rx's Medication Instructions Recorded clonidine 0.2 mg/24 hr weekly 1 patch TRANSDERMAL QWEEK #4 ea 03/26/21 transdermal patch carvedilol 6.25 mg tablet 6.25 mg PO BID #180 tab 06/19/21 lisinopril 10 mg tablet 10 mg PO QDAY #90 tab 07/01/21 normal saline 1 l IV ONCE #1 ea 07/01/21 zofran 4 mg IV Q4H PRN #2 dose 07/01/21 fluoxetine 10 mg capsule See Rx Instructions .ROUTE 07/08/21 .COMPLEX #60 cap lorazepam 1 mg tablet See Rx Instructions .ROUTE 07/08/21 .COMPLEX PRN #15 tab Allergies Allergy/AdvReac Type Severity Reaction Status Date / Time silver Allergy Mild dystonic Verified 08/02/21 12:48 NSAIDS (Non-Steroidal Allergy Unknown Unknown Verified 08/02/21 12:48 Anti-Inflamma metoclopramide [From Reglan] AdvReac Mild Agitated Verified 08/02/21 12:48 prochlorperazine AdvReac Mild "My whole Verified 08/02/21 12:48 [From Compazine] body freaks out." IV iodine contrast Allergy Unknown Unknown Uncoded 07/09/21 16:06 Review of Systems ROS ROS Narrative: Narrative: All systems ED: reviewed and negative except as stated. [facility] Narrative Patient History Narrative: Narrative: Medical/Surgical/Family History All Active Problems (Updated 08/02/21 @ 16:35 by Aidan Batista MD) Testosterone deficiency (Chronic) Nausea and vomiting (Chronic) GERD (gastroesophageal reflux disease) (Chronic) Other hammer toe(s) (acquired), left foot (Chronic) Hypertension, essential (Chronic) Hyperlipidemia (Chronic) History of neuroleptic malignant syndrome (Chronic) Dehydration (Acute) Drug-induced nausea and vomiting (Acute) Uncontrolled type 1 diabetes mellitus with diabetic nephropathy, with long-term current use of insulin (Chronic) Cyclic vomiting syndrome (Chronic) Type 1 diabetes mellitus with stage 3 chronic kidney disease and hypertension (Chronic) Marijuana use, continuous (Chronic) CKD (chronic kidney disease) (Acute) Nephrotic range proteinuria (Chronic) Controlled type 1 diabetes mellitus with chronic kidney disease (Chronic) Port-A-Cath in place (Acute) Diabetic gastroparesis associated with type 1 diabetes mellitus (Chronic) Diabetic neuropathy associated with type 1 diabetes mellitus (Chronic) Diabetic retinopathy associated with type 1 diabetes mellitus (Chronic) Anxiety (Chronic) Back pain (Chronic) Physical deconditioning (Chronic) Malnutrition (Chronic) Acute dehydration (Acute) Acute hypokalemia (Acute) QT prolongation (Acute) Dehydration (Acute) No-show for appointment (Acute) Intractable cyclical vomiting with nausea (Acute) Diabetic gastroparesis (Acute) ROSALIO (acute kidney injury) (Acute) Hyperglycemia (Acute) Dehydration (Acute) Major depressive disorder, recurrent (Acute) Generalized anxiety disorder (Acute) Trauma and stressor-related disorder (Acute) Diabetic gastroparesis (Acute) Nausea & vomiting (Acute) Acute dehydration (Acute) Ketosis (Acute) Uncontrolled diabetes mellitus (Acute) Medical History Abdominal pain, epigastric Anxiety Back pain Chronic ulcer of left foot Coffee ground emesis Diabetes mellitus type I Age 12, With foot ulcer Diabetic gastroparesis associated with type 1 diabetes mellitus Diabetic neuropathy associated with type 1 diabetes mellitus Diabetic peripheral neuropathy Diabetic retinopathy associated with type 1 diabetes mellitus DKA, type 1 Esophageal candidiasis Gastroenteritis Gastroparesis due to DM GERD (gastroesophageal reflux disease) Hallux valgus (acquired), left foot History of neuroleptic malignant syndrome To compazine (prochlorperazine). Tolerates promethazine without issue Hyperlipidemia Hypertension, essential labile due to unpredictable Rx absorption with gastroparesis and propensity for dehydration Holds lisinopril if persistent vomiting occurs Hypokalemia Connie-Byrne tear Malnutrition Marijuana use, continuous Nausea and vomiting Non-pressure chronic ulcer of other part of left foot limited to breakdown of skin Other hammer toe(s) (acquired), left foot Peripheral autonomic neuropathy due to DM Physical deconditioning Sepsis Tardive dyskinesia due to metoclopramide (Reglan) Testosterone deficiency Surgical History History of toe surgery left hallux Family History Mother Atrial fibrillation Essential hypertension Sister Malignant neoplasm of female breast Maternal Grandfather Malignant neoplasm of colon Recorded 11/12/10 Father Essential hypertension Other Adopted DKA, type 1 Social History Smoking Status: Former smoker Alcohol Intake Frequency: former alcohol drinker Substance Use: marijuana (Occasional) Exam Narrative Narrative: Narrative: General Limitations: no limitations General appearance: Present alert and other (uncomfortable d/t ongoing emesis) Head Head: Present atraumatic and normocephalic ENT ENT: Present normal oropharynx and mucous membranes dry Chest Chest: Present normal inspection and symmetric chest wall rise Respiratory Respiratory: Present normal lung sounds bilaterally; Absent accessory muscle use or decreased breath sounds Cardiovascular Cardiovascular: Present regular rate, normal rhythm, +S1, +S2 and other (2+ B/L radial pulses); Absent systolic murmur or diastolic murmur Adbominal Abdominal: Present soft and normal bowel sounds; Absent distention or tenderness Extremities Extremities: Absent pedal edema Neurological Neurological: Present alert and oriented X3 Psychiatric Psychiatric: Present normal affect Skin Skin: Present warm (WNL) and dry Course Vital Signs Vital signs: Vital Signs Temperature 97.1 F 08/02/21 12:57 Pulse Rate 110 H 08/02/21 12:57 Respiratory Rate 18 08/02/21 12:57 Blood Pressure 160/117 08/02/21 12:57 Pulse Oximetry (%) 100 08/02/21 12:57 Temperature 97.4 F 08/02/21 17:51 Pulse Rate 97 H 08/02/21 17:31 Respiratory Rate 21 08/02/21 17:51 Blood Pressure 126/99 08/02/21 17:51 Pulse Oximetry (%) 95 08/02/21 17:51 MDM MDM Narrative Medical decision making narrative: Narrative: 35 yo M w/ h/o DM1 complicated by gastroparesis requiring stimulator placement and previous episodes of DKA p/w N/V. DDx - peritonitis, SBO, dehydration, ROSALIO, metabolic/electrolyte d/o Pt presented dehydrated, uncomfortable d/t emesis, but o/w in NAD. His abd exam was not peritonitic, and his Hx and PE were not c/w SBO. Dehydration was clearly present. I began Tx w/ IVF along w/ zofran and phenergan. CMP showed no worsening of his baseline renal function. His labs however did reveal significant elevation in blood sugar, elevated anion gap, and ketosis. Given the degree of abnormalities on labs, While his Sx improved w/ IVF and antiemetics, I did not feel that we were likely to close his gap in the ED. He was thus admitted to the hospitalist service for ongoing care. Lab Data Result diagrams: 08/02/21 13:23 08/02/21 13:23 Labs: Lab Results 08/02/21 08/02/21 08/02/21 Range/Units 13:23 13:23 13:23 WBC 12.4 H (4.5-11.0) K/mcL RBC 5.14 (4.63-6.08) M/mcL Hgb 14.8 (13.7-17.5) g/dL Hct 44.3 (40.1-51.0) % MCV 86.2 (80.0-100.0) fL MCH 28.8 (26.0-34.0) pg MCHC 33.4 (31.0-36.0) g/dL RDW 12.8 (11.5-14.5) % Plt Count 266 (140-440) K/mcL MPV 11.7 H (7.4-10.4) fL Neut % (Auto) 87.1 H (38.0-78.0) % Lymph % (Auto) 7.1 L (15.5-49.0) % [place] % (Auto) 5.3 (1.0-12.0) % Eos % (Auto) 0 (0.0-7.0) % Baso % (Auto) 0.5 (0.0-2.0) % Lymph # (Auto) 0.88 L (1.50-4.80) K/mcL [place] # (Auto) 0.66 (0.10-0.90) K/mcL Eos # (Auto) 0 (0.00-0.70) K/mcL Baso # (Auto) 0.06 (0.00-0.30) K/mcL Absolute Neutrophils 10.80 H (1.80-8.00) K/mcL ABG Methemoglobin 0.3 L (0.4-1.5) % VBG pH 7.52 H (7.32-7.42) U VBG pCO2 45.4 (41.0-51.0) mmHg VBG pO2 41.3 H (25.0-40.0) mmHg VBG HCO3 36.0 H (24.0-28.0) mmol/L VBG Total CO2 37.4 H (25.0-29.0) mmol/L VBG O2 Saturation 74.6 H (40.0-70.0) % VBG Base Excess 12 H (-2-2) Carboxyhemoglobin 5.2 H (0.0-1.5) % THgb Total Hemoglobin 14.4 (13.5-16.5) gm/Dl Sodium 129 L (133-145) mmol/L Potassium 4.1 (3.3-5.1) mmol/L Chloride 75 L (96-108) mmol/L Carbon Dioxide 30 (22-30) mmol/L Anion Gap 24.0 H (8.0-16.0) BUN 26 H (6-20) mg/dL Creatinine 2.5 H (0.7-1.2) mg/dL GFR Calculation 32 Glucose 698 H* (70-105) mg/dL Osmolality (280-300) mOSM/kg Calcium 9.4 (8.6-10.4) mg/dL Phosphorus (2.5-4.5) mg/dL Magnesium (1.6-2.5) mg/dL Total Bilirubin 0.7 (0.1-1.0) mg/dL AST 11 (<40) U/L ALT 10 (<40) U/L Alkaline Phosphatase 130 H (39-117) U/L Total Protein 8.1 (5.9-8.4) gm/dL Albumin 4.4 (3.2-5.2) gm/dL Globulin 3.7 (2.2-3.7) gm/dL Albumin/Globulin Ratio 1.2 (1.0-2.3) Beta-Hydroxybutyrate 5.11 H (<0.27) mmol/L 08/02/21 08/02/21 Range/Units 16:56 17:06 WBC (4.5-11.0) K/mcL RBC (4.63-6.08) M/mcL Hgb (13.7-17.5) g/dL Hct (40.1-51.0) % MCV (80.0-100.0) fL MCH (26.0-34.0) pg MCHC (31.0-36.0) g/dL RDW (11.5-14.5) % Plt Count (140-440) K/mcL MPV (7.4-10.4) fL Neut % (Auto) (38.0-78.0) % Lymph % (Auto) (15.5-49.0) % [place] % (Auto) (1.0-12.0) % Eos % (Auto) (0.0-7.0) % Baso % (Auto) (0.0-2.0) % Lymph # (Auto) (1.50-4.80) K/mcL [place] # (Auto) (0.10-0.90) K/mcL Eos # (Auto) (0.00-0.70) K/mcL Baso # (Auto) (0.00-0.30) K/mcL Absolute Neutrophils (1.80-8.00) K/mcL ABG Methemoglobin (0.4-1.5) % VBG pH (7.32-7.42) U VBG pCO2 (41.0-51.0) mmHg VBG pO2 (25.0-40.0) mmHg VBG HCO3 (24.0-28.0) mmol/L VBG Total CO2 (25.0-29.0) mmol/L VBG O2 Saturation (40.0-70.0) % VBG Base Excess (-2-2) Carboxyhemoglobin (0.0-1.5) % THgb Total Hemoglobin (13.5-16.5) gm/Dl Sodium (133-145) mmol/L Potassium (3.3-5.1) mmol/L Chloride (96-108) mmol/L Carbon Dioxide (22-30) mmol/L Anion Gap (8.0-16.0) BUN (6-20) mg/dL Creatinine (0.7-1.2) mg/dL GFR Calculation Glucose (70-105) mg/dL Osmolality 321 H (280-300) mOSM/kg Calcium (8.6-10.4) mg/dL Phosphorus 4.3 (2.5-4.5) mg/dL Magnesium 3.1 H (1.6-2.5) mg/dL Total Bilirubin (0.1-1.0) mg/dL AST (<40) U/L ALT (<40) U/L Alkaline Phosphatase (39-117) U/L Total Protein (5.9-8.4) gm/dL Albumin (3.2-5.2) gm/dL Globulin (2.2-3.7) gm/dL Albumin/Globulin Ratio (1.0-2.3) Beta-Hydroxybutyrate (<0.27) mmol/L ED POC Tests ED POC Tests: GEGE - SARS Antigen Negative Discharge Plan Patient/Caregiver Discharge Instructions Pt seen by AGRICULTURAL PRODUCTION ENGINEER/PA only: No Clinical Impression: Nausea & vomiting, Acute dehydration, Ketosis, Uncontrolled diabetes mellitus Patient Disposition: Xfer As Inpt ([facility]) Condition: Serious Discharge Date/Time: 08/02/21 17:45
[2021-08-02 13:48] LABS: ABG Methemoglobin 0.3 % (0.4-1.5); Total Hemoglobin 14.4 gm/Dl (13.5-16.5); VBG Base Excess 12 (-2-2); VBG Oxygen Saturation 74.6 % (40.0-70.0); VBG PCO2 45.4 mmHg (41.0-51.0); VBG PH 7.52 U (7.32-7.42); VBG PO2 41.3 mmHg (25.0-40.0); VBG Total CO2 37.4 mmol/L (25.0-29.0)
[2021-08-02 14:05] LABS: Basophils # (Auto) 0.06 K/mcL (0.00-0.30); Basophils % (Auto) 0.5 % (0.0-2.0); Eosinophils # (Auto) 0 K/mcL (0.00-0.70); Eosinophils % (Auto) 0 % (0.0-7.0); Hematocrit 44.3 % (40.1-51.0); Hemoglobin 14.8 g/dL (13.7-17.5); Lymphocytes # (Auto) 0.88 K/mcL (1.50-4.80); Lymphocytes % (Auto) 7.1 % (15.5-49.0); Mean Cell Volume 86.2 fL (80.0-100.0); Mean Corpuscular HGB Conc 33.4 g/dL (31.0-36.0); Mean Platelet Volume 11.7 fL (7.4-10.4); Monocytes # (Auto) 0.66 K/mcL (0.10-0.90); Monocytes % (Auto) 5.3 % (1.0-12.0); Neutrophils % (Auto) 87.1 % (38.0-78.0); Platelet Count 266 K/mcL (140-440); RBC 5.14 M/mcL (4.63-6.08); Red Cell Distribution Width 12.8 % (11.5-14.5); WBC 12.4 K/mcL (4.5-11.0)
[2021-08-02 14:47] LABS: Beta Hydroxybutyrate 5.11 mmol/L (<0.27)
[2021-08-02 14:48] LABS: ALT/SGPT 10 U/L (<40); AST/SGOT 11 U/L (<40); Albumin 4.4 gm/dL (3.2-5.2); Albumin/Globulin Ratio 1.2 (1.0-2.3); Alkaline Phosphatase 130 U/L (39-117); Bilirubin,Total 0.7 mg/dL (0.1-1.0); Blood Urea Nitrogen 26 mg/dL (6-20); Calcium 9.4 mg/dL (8.6-10.4); Carbon Dioxide 30 mmol/L (22-30); Chloride 75 mmol/L (96-108); Globulin 3.7 gm/dL (2.2-3.7); Glomerular Filtration Rate 32; Glucose 698 mg/dL (70-105)
[2021-08-02] MEDS ORDERED: INSULIN REGULAR, HUMAN 1 UNIT/0.01 ML UNIT IV ONE (16:16)
[2021-08-02] MEDS ORDERED: MAG HYDROX/AL HYDROX/SIMETH 30 ML ORAL.SUSP PO ONE (16:44)
[2021-08-02] MEDS ORDERED: INSULIN REGULAR, HUMAN 50 UNIT in 0.9 % SODIUM CHLORIDE 99.5 ML IV SCH (16:45)
--- NOTE | 2021-08-02 16:54 | Internal Med History&Physical ---
HPI History of Present Illness Patient information: Note initiated : 08/02/21 at 4:46 pm Service Date, if different from initiated Date: [] Patient: Mauri Levine a 35 y/o M admitted on for gastroparesis. Chief Complaint: [] History of present illness: Mr. Levine is a 35 year old M Similar presentation as in May. He has a history of diabetes type 1 on insulin pump and gastroparesis woke up has developed nausea vomiting past couple days. Commonly wakes up in the morning with nausea vomiting and it usually goes away but has persisted. As he monitor sugars they continue to increase. Blood glucose in the ED was about 700 his creatinine. Ending urinalysis. [place] ptosis mildly elevated. Corrected sodium within normal limits. Creatinine around baseline. Anion gap 24 with a normal pH. Bicarb 30. Beta hydroxybutyrate uric acid at 5 Given IV insulin and started on a drip in the ED. Review of Systems: Pertinent positives as above denies headache/fever/chillschest or abdominal pain/cough/dyspnea/diarrhea. Remaining 10 point review of system reviewed negative PFSH PFSH All Active Problems (Updated 08/02/21 @ 16:35 by Aidan Batista MD) Testosterone deficiency (Chronic) Nausea and vomiting (Chronic) GERD (gastroesophageal reflux disease) (Chronic) Other hammer toe(s) (acquired), left foot (Chronic) Hypertension, essential (Chronic) Hyperlipidemia (Chronic) History of neuroleptic malignant syndrome (Chronic) Dehydration (Acute) Drug-induced nausea and vomiting (Acute) Uncontrolled type 1 diabetes mellitus with diabetic nephropathy, with long-term current use of insulin (Chronic) Cyclic vomiting syndrome (Chronic) Type 1 diabetes mellitus with stage 3 chronic kidney disease and hypertension (Chronic) Marijuana use, continuous (Chronic) CKD (chronic kidney disease) (Acute) Nephrotic range proteinuria (Chronic) Controlled type 1 diabetes mellitus with chronic kidney disease (Chronic) Port-A-Cath in place (Acute) Diabetic gastroparesis associated with type 1 diabetes mellitus (Chronic) Diabetic neuropathy associated with type 1 diabetes mellitus (Chronic) Diabetic retinopathy associated with type 1 diabetes mellitus (Chronic) Anxiety (Chronic) Back pain (Chronic) Physical deconditioning (Chronic) Malnutrition (Chronic) Acute dehydration (Acute) Acute hypokalemia (Acute) QT prolongation (Acute) Dehydration (Acute) No-show for appointment (Acute) Intractable cyclical vomiting with nausea (Acute) Diabetic gastroparesis (Acute) ROSALIO (acute kidney injury) (Acute) Hyperglycemia (Acute) Dehydration (Acute) Major depressive disorder, recurrent (Acute) Generalized anxiety disorder (Acute) Trauma and stressor-related disorder (Acute) Diabetic gastroparesis (Acute) Nausea & vomiting (Acute) Acute dehydration (Acute) Ketosis (Acute) Uncontrolled diabetes mellitus (Acute) Medical History Abdominal pain, epigastric Anxiety Back pain Chronic ulcer of left foot Coffee ground emesis Diabetes mellitus type I Age 12, With foot ulcer Diabetic gastroparesis associated with type 1 diabetes mellitus Diabetic neuropathy associated with type 1 diabetes mellitus Diabetic peripheral neuropathy Diabetic retinopathy associated with type 1 diabetes mellitus DKA, type 1 Esophageal candidiasis Gastroenteritis Gastroparesis due to DM GERD (gastroesophageal reflux disease) Hallux valgus (acquired), left foot History of neuroleptic malignant syndrome To compazine (prochlorperazine). Tolerates promethazine without issue Hyperlipidemia Hypertension, essential labile due to unpredictable Rx absorption with gastroparesis and propensity for dehydration Holds lisinopril if persistent vomiting occurs Hypokalemia Connie-Byrne tear Malnutrition Marijuana use, continuous Nausea and vomiting Non-pressure chronic ulcer of other part of left foot limited to breakdown of skin Other hammer toe(s) (acquired), left foot Peripheral autonomic neuropathy due to DM Physical deconditioning Sepsis Tardive dyskinesia due to metoclopramide (Reglan) Testosterone deficiency Surgical History History of toe surgery left hallux Family History Mother Atrial fibrillation Essential hypertension Sister Malignant neoplasm of female breast Maternal Grandfather Malignant neoplasm of colon Recorded 11/12/10 Father Essential hypertension Other Adopted DKA, type 1 Social History adopted: Yes household members: family housing: other details: 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 marital status: single occupational status: disabled occupation: On disability since 2016 physical activity: walking smoking status: Former smoker quit date: 02/12/11 alcohol intake frequency: former alcohol drinker substance use type: marijuana (Occasional) seatbelt use: always MEDS/ALLERGIES Home Medications and Allergies Home Medications Medication Instructions Recorded Confirmed Type atorvastatin 40 mg tablet 40 mg PO HS 02/13/19 07/09/21 History aluminum-mag hydroxide-simethicone 10 ml PO TID PRN 04/04/19 07/09/21 History 400 mg-400 mg-40 mg/5 mL oral susp (Mylanta Maximum Strength) calcium carbonate 300 mg (750 mg) 600 mg PO ONCE tab 02/11/21 07/09/21 History chewable tablet (Tums) cholecalciferol (vitamin D3) 50 50 mcg PO QDAY 02/11/21 07/09/21 History mcg (2,000 unit) capsule cyanocobalamin (vitamin B-12) 1,000 mcg PO QHS cap 02/11/21 07/09/21 History 1,000 mcg capsule melatonin 10 mg tablet 10 mg PO HS PRN 02/11/21 07/09/21 History omeprazole 20 mg capsule,delayed 20 mg PO BID 02/11/21 07/09/21 History release tadalafil 10 mg tablet (Cialis) 10 mg PO QHS PRN tab 02/11/21 07/09/21 History calcium cit 250 mg-ergocalciferol 1 tab PO QHS tab 03/26/21 07/09/21 History (vit D2) 2.5 mcg (100 unit) tablet (Farshad-Citrate) clonidine 0.2 mg/24 hr weekly 1 patch TRANSDERMAL QWEEK #4 ea 03/26/21 07/09/21 Rx transdermal patch insulin aspart U-100 100 unit/mL See Rx Instructions .ROUTE .COMPLEX 03/26/21 07/09/21 History subcutaneous solution (Novolog U-100 Insulin aspart) carvedilol 6.25 mg tablet 6.25 mg PO BID #180 tab 06/19/21 07/09/21 Rx lisinopril 10 mg tablet 10 mg PO QDAY #90 tab 07/01/21 07/09/21 Rx normal saline 1 l IV ONCE #1 ea 07/01/21 07/08/21 Rx zofran 4 mg IV Q4H PRN #2 dose 07/01/21 07/09/21 Rx ketamine 50mg/ml nasal spray 1 - 3 spray INTRANASAL PRN 07/03/21 07/09/21 History fluoxetine 10 mg capsule See Rx Instructions .ROUTE 07/08/21 07/09/21 Rx .COMPLEX #60 cap lorazepam 1 mg tablet See Rx Instructions .ROUTE 07/08/21 07/09/21 Rx .COMPLEX PRN #15 tab gabapentin 300 mg capsule 600 mg PO BID PRN cap 07/09/21 07/09/21 History Allergies Allergy/AdvReac Type Severity Reaction Status Date / Time silver Allergy Mild dystonic Verified 08/02/21 12:48 NSAIDS (Non-Steroidal Allergy Unknown Unknown Verified 08/02/21 12:48 Anti-Inflamma metoclopramide [From Reglan] AdvReac Mild Agitated Verified 08/02/21 12:48 prochlorperazine AdvReac Mild "My whole Verified 08/02/21 12:48 [From Compazine] body freaks out." IV iodine contrast Allergy Unknown Unknown Uncoded 07/09/21 16:06 EXAM Constitutional Vitals: Temp Pulse Resp BP Pulse Ox 97.1 F 114 H 24 H 153/95 99 08/02/21 12:57 08/02/21 16:31 08/02/21 16:31 08/02/21 16:31 08/02/21 16:31 Exam: General: Alert, Awake, No acute Distress Eyes/N/T: EOMI, PERRL, dry MM Head/Neck: neck supple, normocephalic atraumatic CV: Mildly tacky but regular, 2/6 SM, normal s1/s2 Pulm: Clear b/l, no wheezing/rhonchi/rales Abd: soft, nontender, +BS x4 Ext: no clubbing/cyanosis/edema Neuro: Alert, no focal deficits, moves all extremities, CN 2-12 grossly intact, symmetrical strength b/l upper/lower, sensations intact b/l upper/lower Skin: warm/dry DATA Data Completed and Pending Labs: Labs from last 24 hours 08/02/21 08/02/21 08/02/21 13:23 13:23 13:23 WBC 12.4 H RBC 5.14 Hgb 14.8 Hct 44.3 MCV 86.2 MCH 28.8 MCHC 33.4 RDW 12.8 Plt Count 266 MPV 11.7 H Neut % (Auto) 87.1 H Lymph % (Auto) 7.1 L [place] % (Auto) 5.3 Eos % (Auto) 0 Baso % (Auto) 0.5 Lymph # (Auto) 0.88 L [place] # (Auto) 0.66 Eos # (Auto) 0 Baso # (Auto) 0.06 Absolute Neutrophils 10.80 H ABG Methemoglobin 0.3 L VBG pH 7.52 H VBG pCO2 45.4 VBG pO2 41.3 H VBG HCO3 36.0 H VBG Total CO2 37.4 H VBG O2 Saturation 74.6 H VBG Base Excess 12 H Carboxyhemoglobin 5.2 H Total Hemoglobin 14.4 Sodium 129 L Potassium 4.1 Chloride 75 L Carbon Dioxide 30 Anion Gap 24.0 H BUN 26 H Creatinine 2.5 H GFR Calculation 32 Glucose 698 H* Calcium 9.4 Total Bilirubin 0.7 AST 11 ALT 10 Alkaline Phosphatase 130 H Total Protein 8.1 Albumin 4.4 Globulin 3.7 Albumin/Globulin Ratio 1.2 Beta-Hydroxybutyrate 5.11 H A/P Narrative A/P Narrative: A: *HHS/DKA overlap: *DM type I with Gastroparesis/Neuropathy: -A1c 8.9 (June) *Hypovolemia: *CKD III (~2's): Follows with Dr. Mills *Anemia, chronic *HTN: On coreg/clonidine/lisinopril *Anxiety/depression: *GERD: P: -Insulin gtt -IV fluids -Monitor electrolytes and replace -clear liquids if patient is tolerant and advance diet as able to gastroparesis diet (low fat, soluble fiber) -Antiemetics -cont clonidine/BB, restart ACEI pending f/u renal fxn, IV prn BP meds -home med reconciliation -ppx: Lovenox/H2 Time Spent With Patient Time: Total time spent is greater than 50% in coordination of care (as documented) at patient's floor/unit and/or counseling patient:
[2021-08-02] MEDS: INSULIN REGULAR, HUMAN 1 UNIT/0.01 ML UNIT ONE ×2 (17:27→17:57)
[2021-08-02 17:30] LABS: Phosphorous 4.3 mg/dL (2.5-4.5)
[2021-08-02] MEDS: 0.9 % SODIUM CHLORIDE 1,000 ML IV SCH ×3 (17:30→21:49)
[2021-08-02] MEDS ORDERED: SENNOSIDES 1 TABLET PO PRN (17:51)
[2021-08-02] MEDS ORDERED: POLYETHYLENE GLYCOL 3350 17 GM PACKET PO PRN (17:51)
[2021-08-02] MEDS ORDERED: POTASSIUM CHLORIDE 20 MEQ in DEXTROSE 5% IN WATER 250 ML IV ONE (17:51)
[2021-08-02] MEDS ORDERED: ACETAMINOPHEN 325 MG TABLET PO PRN (17:51)
[2021-08-02] MEDS ORDERED: MAGNESIUM SULFATE 2 GM/50 ML BAG IV PRN (17:51)
[2021-08-02] MEDS ORDERED: POTASSIUM CHLORIDE 40 MEQ in DEXTROSE 5% IN WATER 500 ML IV PRN (17:51)
[2021-08-02] MEDS ORDERED: POTASSIUM CHLORIDE 20 MEQ TABLET PO PRN ×2 (17:51)
[2021-08-02] MEDS ORDERED: hydrALAZINE 20 MG/ML VIAL IV PRN (17:51)
[2021-08-02] MEDS ORDERED: 0.9 % SODIUM CHLORIDE 1,000 ML IV SCH (17:51)
[2021-08-02] MEDS ORDERED: PROCHLORPERAZINE 10 MG/2 ML VIAL IV PRN (17:51)
[2021-08-02] MEDS: DEXTROSE 5%-NS 1,000 ML IV SCH (18:35)
[2021-08-02] MEDS ORDERED: GABAPENTIN 300 MG CAPSULE PO PRN (19:09)
[2021-08-02] MEDS ORDERED: MAG HYDROX/AL HYDROX/SIMETH 30 ML ORAL.SUSP PO PRN (19:09)
[2021-08-02] MEDS ORDERED: POTASSIUM CHLORIDE 20 MEQ/10 ML VIAL IV ONE (20:28)
[2021-08-02] MEDS ORDERED: MELATONIN 3 MG TABLET PO PRN (20:32)
[2021-08-02] MEDS ORDERED: CALCIUM CARBONATE 500 MG TAB.CHEW CHEWED PRN (20:34)
[2021-08-02] MEDS: ONDANSETRON 4 MG/2 ML VIAL IV PRN (20:52)
[2021-08-02] MEDS: CALCIUM W/VIT D3 500 MG TABLET PO SCH (21:05)
[2021-08-02] MEDS: CARVEDILOL 6.25 MG TABLET PO SCH (21:05)
[2021-08-02] MEDS: ATORVASTATIN 40 MG TABLET PO SCH (21:05)
[2021-08-02] MEDS: OMEPRAZOLE 20 MG CAPSULE PO SCH (21:05)
[2021-08-02] MEDS: CYANOCOBALAMIN (VITAMIN B-12) 500 MCG TABLET PO SCH (21:06)
[2021-08-02] MEDS ORDERED: cloNIDine TTS 2 1 PATCH PATCH TD SCH (22:00)
[2021-08-02] MEDS: FAMOTIDINE/PF 20 MG/2 ML VIAL IV SCH (22:15)
[2021-08-02] MEDS: 0.9 % SODIUM CHLORIDE 10 ML SYRINGE IV SCH (22:16)
[2021-08-03] MEDS: DEXTROSE 5%-NS 1,000 ML IV SCH ×5 (00:29→12:26)
[2021-08-03] MEDS ORDERED: DEXTROSE 50% 50 ML VIAL IV PRN (01:15)
[2021-08-03] MEDS ORDERED: DEXTROSE 50% 50 ML SYRINGE IV ONE (01:19)
[2021-08-03] MEDS: 0.9 % SODIUM CHLORIDE 10 ML SYRINGE IV SCH ×3 (05:09→21:06)
[2021-08-03 06:47] LABS: Appearance,Urine CLEAR (Clear); Bilirubin,Urine Negative (Negative); Color,Urine YELLOW; Culture Indicated,Urine No; Glucose,Urine (UA) >=500 mg/dL (Negative); Ketones,Urine 5 mg/dL (Negative); Leukocyte Esterase,Urine Negative /uL (Negative); Nitrate,Urine Negative (Negative); Protein,Urine 100 mg/dL (Negative); Specific Gravity,Urine 1.012 (1.000-1.035); Urine Blood Negative (Negative); Urine Hyaline Cast 1 /lph (0-2); Urine RBC < 1 /hpf (0-3); Urine Squamous Epithelial Cell < 1 /hpf (0-4); Urine WBC < 1 /hpf (0-4); Urobilinogen,Urine Negative
[2021-08-03 06:59] LABS: Hematocrit 34.6 % (40.1-51.0); Hemoglobin 11.4 g/dL (13.7-17.5); Mean Cell Volume 86.3 fL (80.0-100.0); Mean Corpuscular HGB Conc 32.9 g/dL (31.0-36.0); Mean Platelet Volume 11.6 fL (7.4-10.4); Platelet Count 217 K/mcL (140-440); RBC 4.01 M/mcL (4.63-6.08); Red Cell Distribution Width 13.2 % (11.5-14.5)
[2021-08-03] MEDS: OMEPRAZOLE 20 MG CAPSULE PO SCH ×2 (07:26→17:03)
[2021-08-03] MEDS: CARVEDILOL 6.25 MG TABLET PO SCH ×2 (07:26→17:03)
[2021-08-03] MEDS: ONDANSETRON 4 MG/2 ML VIAL IV PRN ×2 (07:27→22:53)
[2021-08-03 07:30] LABS: ALT/SGPT 7 U/L (<40); AST/SGOT 10 U/L (<40); Albumin 3.2 gm/dL (3.2-5.2); Albumin/Globulin Ratio 1.3 (1.0-2.3); Alkaline Phosphatase 86 U/L (39-117); Beta Hydroxybutyrate 0.07 mmol/L (<0.27); Bilirubin,Direct < 0.2 mg/dL (0-0.3); Bilirubin,Total 0.3 mg/dL (0.1-1.0); Blood Urea Nitrogen 20 mg/dL (6-20); Calcium 7.7 mg/dL (8.6-10.4); Carbon Dioxide 30 mmol/L (22-30); Chloride 91 mmol/L (96-108); Globulin 2.4 gm/dL (2.2-3.7); Glomerular Filtration Rate 40; Glucose 290 mg/dL (70-105); Lactate Dehydrogenase 154 U/L (135-225); Phosphorous 3.2 mg/dL (2.5-4.5); Triglycerides 78 mg/dL (<150); Uric Acid 6.9 mg/dL (2.5-8.0)
--- NOTE | 2021-08-03 07:50 | Internal Med Progress Note ---
SUBJECTIVE Subjective Patient information: Note initiated : 08/03/21 at 7:48 am Service Date, if different from initiated Date: [] Patient: Mauri Levine 35 y/o M admitted on 08/02/21 for gastroparesis. Chief Complaint: [] Interval history: Chief Complaint: [] History of present illness: Mr. Levine is a 35 year old M Similar presentation as in May. He has a history of diabetes type 1 on insulin pump and gastroparesis woke up has developed nausea vomiting past couple days. Commonly wakes up in the morning with nausea vomiting and it usually goes away but has persisted. As he monitor sugars they continue to increase. Blood glucose in the ED was about 700 his creatinine. Ending urinalysis. mildly elevated. Corrected sodium within normal limits. Creatinine around baseline. Anion gap 24 with a normal pH. Bicarb 30. Beta hydroxybutyrate uric acid at 5 Given IV insulin and started on a drip in the ED. 08/03 Patient feeling better today. Tolerating clear liquid diet. Awaiting father to bring in insulin pump. Review of Systems: denies headache/fever/chills/vomiting/chest or abdominal pain/cough/dyspnea/diarrhea. Otherwise see above. Constitutional Vitals: Vital Signs Temp Pulse Resp BP Pulse Ox 98.2 F 86 15 173/71 98 08/03/21 02:00 08/02/21 22:00 08/03/21 06:34 08/03/21 06:01 08/02/21 22:00 Period Temp Pulse Resp BP Sys/Menard Pulse Ox Last 24 Hr 97.1 F-98.4 F 84-118 14-26 91-173/64-122 94-100 Intake and Output 08/02/21 08/03/21 08/03/21 21:59 05:59 13:59 Intake Total 230 2301 Output Total 325 550 Balance 1981 175 Weight 77.111 kg Intake & Output: Intake & Output 08/02/21 08/03/21 08/03/21 21:59 05:59 13:59 Intake Total 2307 2301 Output Total 325 550 Balance 1981 175 Weight 77.111 kg Intake: IV 2006 2300 Sodium Chloride 0.9% 1,000 ml @ 2000 500 mls/hr IV .Q2H [facility] Rx#: [id number] Dextrose 5%-Ns IV Solution , 1988 000 ml @ 250 mls/hr IV .Q4H [facility] Rx#:[id number] HumuLIN R 50 UNIT In Sodium 7 53 Chloride 0.9% 99.5 ml @ 7 UNIT/ HR 14 mls/hr IV DUR [facility] Rx#: [id number] Potassium Chloride 20 Meq In 260 Dextrose 5% in Water 250 ml @ 130 mls/hr IV ONCE ONE Rx#: [id number] Oral 300 Output: Void Amount 550 Emesis 325 Other: Urine Appearance Clear Urine Color Pale # Emeses 1 Exam: General: Alert, Awake, No acute Distress Eyes/N/T: EOMI, Head/Neck: neck supple, CV: RRR, 1/6 SM, Pulm: Clear b/l, no wheezing/rhonchi/rales Abd: soft, nontender, +BS x4 Ext: no clubbing/cyanosis/edema Neuro: Alert, no focal deficits, moves all extremities, Skin: warm/dry OBJ DATA Labs CBC & Chem 7: 08/03/21 05:22 08/03/21 05:21 Labs: Abnormal Lab Results 08/03/21 08/03/21 08/03/21 05:22 05:21 04:36 WBC RBC 4.01 L Hgb 11.4 L Hct 34.6 L MPV 11.6 H Neut % (Auto) Lymph % (Auto) Lymph # (Auto) Absolute Neutrophils ABG Methemoglobin VBG pH VBG pO2 VBG HCO3 VBG Total CO2 VBG O2 Saturation VBG Base Excess Carboxyhemoglobin Sodium 132 L Chloride 91 L Anion Gap BUN Creatinine 2.1 H Glucose 290 H Osmolality Calcium 7.7 L Magnesium Alkaline Phosphatase Total Protein 5.6 L Beta-Hydroxybutyrate Urine Protein 100 A Urine Glucose (UA) >=500 A Urine Ketones 5 A 08/02/21 08/02/21 08/02/21 17:06 16:56 13:23 WBC RBC Hgb Hct MPV Neut % (Auto) Lymph % (Auto) Lymph # (Auto) Absolute Neutrophils ABG Methemoglobin 0.3 L VBG pH 7.52 H VBG pO2 41.3 H VBG HCO3 36.0 H VBG Total CO2 37.4 H VBG O2 Saturation 74.6 H VBG Base Excess 12 H Carboxyhemoglobin 5.2 H Sodium Chloride Anion Gap BUN Creatinine Glucose Osmolality 321 H Calcium Magnesium 3.1 H Alkaline Phosphatase Total Protein Beta-Hydroxybutyrate Urine Protein Urine Glucose (UA) Urine Ketones 08/02/21 08/02/21 13:23 13:23 WBC 12.4 H RBC Hgb Hct MPV 11.7 H Neut % (Auto) 87.1 H Lymph % (Auto) 7.1 L Lymph # (Auto) 0.88 L Absolute Neutrophils 10.80 H ABG Methemoglobin VBG pH VBG pO2 VBG HCO3 VBG Total CO2 VBG O2 Saturation VBG Base Excess Carboxyhemoglobin Sodium 129 L Chloride 75 L Anion Gap 24.0 H BUN 26 H Creatinine 2.5 H Glucose 698 H* Osmolality Calcium Magnesium Alkaline Phosphatase 130 H Total Protein Beta-Hydroxybutyrate 5.11 H Urine Protein Urine Glucose (UA) Urine Ketones Meds: Medications Acetaminophen (Acetaminophen 325 Mg Tablet) 650 mg PO Q6HP PRN; Protocol PRN Reason: Per Pain Protocol/Fever > 101 Al Hydrox/Mg Hydrox/Simethicone (Mag Hydrox/Al Hydrox/Simeth 30 Ml Oral.Susp) 10 ml PO TIDP PRN PRN Reason: Nausea Atorvastatin Calcium (Atorvastatin 40 Mg Tablet) 40 mg PO [facility] Last Admin: 08/02/21 21:05 Dose: Not Given Documented by: Calcium Carbonate/Glycine (Calcium Carbonate 500 Mg Tab.Chew) 500 mg CHEWED DAILYP PRN PRN Reason: Dyspepsia Calcium/Vitamin D (Calcium W/Vit D3 500 Mg Tablet) 500 mg PO QHS [facility] Last Admin: 08/02/21 21:05 Dose: Not Given Documented by: Carvedilol (Carvedilol 6.25 Mg Tablet) 6.25 mg PO BIDCC [facility] Last Admin: 08/03/21 07:26 Dose: 6.25 mg Documented by: Clonidine HCl (Clonidine Tts 2 1 Patch Patch) 1 patch TD Laureano@2200 [facility] Last Admin: 08/02/21 22:10 Dose: 1 patch Documented by: Cyanocobalamin (Cyanocobalamin (Vitamin B-12) 500 Mcg Tablet) 1,000 mcg [facility] Last Admin: 08/02/21 21:06 Dose: Not Given Documented by: Dextrose (Dextrose 50% 50 Ml Vial) 25 ml IV UD PRN PRN Reason: Hypoglycemia Last Admin: 08/03/21 01:17 Dose: 25 ml Documented by: Diagnostic Test (Pha) (Accu-Chek 1 Each Strip) 1 each FS Q1H [facility] Last Admin: 08/03/21 07:00 Dose: 1 each Documented by: Enoxaparin Sodium (Enoxaparin 40 Mg/0.4 Ml Syringe) 40 mg SQ DAILY [facility] Famotidine (Famotidine/Pf 20 Mg/2 Ml Vial) 20 mg IV Q12 [facility] Last Admin: 08/02/21 22:15 Dose: 20 mg Documented by: Fluoxetine HCl (Fluoxetine Hcl 10 Mg Capsule) 20 mg PO DAILY [facility] Gabapentin (Gabapentin 300 Mg Capsule) 600 mg PO BIDP PRN PRN Reason: Pain Hydralazine HCl (Hydralazine 20 Mg/Ml Vial) 0 mg IV Q2HP PRN PRN Reason: Hypertension Insulin Human Regular 50 unit/ (Sodium Chloride) 100 mls @ 14 mls/hr IV DUR [facility]; Protocol Last Titration: 08/03/21 05:09 Dose: 2 unit/hr, 4 mls/hr Documented by: Potassium Chloride 40 meq/ (Dextrose) 520 mls @ 130 mls/hr IV UD PRN PRN Reason: Potassium < 3 Magnesium Sulfate (Magnesium Sulfate) 2 gm in 50 mls @ 50 mls/hr IV UD PRN PRN Reason: Magnesium </= 1.6 Dextrose/Sodium Chloride (Dextrose 5%-Ns Iv Solution) 1,000 mls @ 250 mls/hr IV .Q4H [facility] Last Admin: 08/03/21 07:27 Dose: Not Given Documented by: Lisinopril (Lisinopril 10 Mg Tablet) 10 mg PO QDAY [facility] Melatonin (Melatonin 3 Mg Tablet) 9 mg PO HSP PRN PRN Reason: Insomnia Metoclopramide HCl (Metoclopramide 10 Mg/2 Ml Vial) 10 mg IV Q6HP PRN PRN Reason: Nausea And Vomiting Non-Formulary Medication (Ketamine 50mg/Ml Nasal [place]) 1 - 3 spray INTRANASAL PRN [facility] Omeprazole (Omeprazole 20 Mg Capsule) 20 mg PO BIDAC [facility] Last Admin: 08/03/21 07:26 Dose: 20 mg Documented by: Ondansetron HCl (Ondansetron 4 Mg/2 Ml Vial) 4 mg IV Q4HP PRN PRN Reason: Nausea And Vomiting Last Admin: 08/03/21 07:27 Dose: 4 mg Documented by: Polyethylene Glycol (Polyethylene Glycol 3350 17 Gm Packet) 17 gm PO DAILYP PRN PRN Reason: Constipation Potassium Chloride (Potassium Chloride 20 Meq Tablet) 40 meq PO UD PRN PRN Reason: Potssium is 3-3.5 Potassium Chloride (Potassium Chloride 20 Meq Tablet) 40 meq PO UD PRN PRN Reason: Potassium < 3 Prochlorperazine (Prochlorperazine 10 Mg/2 Ml Vial) 10 mg IV Q6HP PRN PRN Reason: Nausea And Vomiting Senna (Sennosides 1 Tablet) 2 tab PO DAILYP PRN PRN Reason: Constipation Sodium Chloride (0.9 % Sodium Chloride 10 Ml Syringe) 10 ml IV Q8 [facility] Last Admin: 08/03/21 05:09 Dose: Not Given Documented by: Vitamin D (Vitamin D3 25 Mcg Tablet) 50 mcg PO DAILY [facility] ABG Interpretation ABG results: 08/02/21 13:23 ABG Methemoglobin 0.3 L VBG pH 7.52 H VBG pCO2 45.4 VBG pO2 41.3 H VBG HCO3 36.0 H VBG Total CO2 37.4 H VBG O2 Saturation 74.6 H VBG Base Excess 12 H A/P Narrative A/P Narrative: A: *HHS/DKA overlap: improving *DM type I with Gastroparesis/Neuropathy: -A1c 8.9 (June) *Hypovolemia: improved *CKD III (~2's): Follows with Dr. Mills *Anemia, chronic *HTN: On coreg/clonidine/lisinopril *Anxiety/depression: *GERD: P: -Insulin gtt to home pump, monitor today -IV fluids -Monitor electrolytes and replace -advance diet as able to gastroparesis diet (low fat, soluble fiber) -Antiemetics -cont clonidine/BB/ACEI -ppx: Lovenox/H2 Time Spent With Patient Time: Total time spent is greater than 50% in coordination of care (as documented) at patient's floor/unit and/or counseling patient:
[2021-08-03 08:12] LABS: Eosinophils % (Manual) 1 % (0-7); Hypochromasia 1+ (None Seen); Lymphocytes % 20 % (15-49); Monocytes % (Manual) 9 % (1-12); Platelet Estimate NORMAL (Normal); RBC Morphology ABNORMAL (Normal); Segmented Neutrophils % 70 % (38-78)
[2021-08-03] MEDS: FAMOTIDINE/PF 20 MG/2 ML VIAL IV SCH ×2 (08:30→21:05)
[2021-08-03] MEDS: LISINOPRIL 10 MG TABLET PO SCH (08:30)
[2021-08-03] MEDS: FLUoxetine HCL 10 MG CAPSULE PO SCH (08:30)
[2021-08-03] MEDS: VITAMIN D3 25 MCG TABLET PO SCH (08:30)
[2021-08-03] MEDS: ENOXAPARIN 40 MG/0.4 ML SYRINGE SQ SCH (08:32)
[2021-08-03] MEDS ORDERED: KETAMINE 50 MG/ML NAS PRN (08:45)
--- NOTE | 2021-08-03 10:45 | Discharge Summary ---
Discharge Provider Provider Patient information: Note initiated : 08/03/21 at 10:43 am Service Date, if different from initiated Date: [] Patient: Mauri Levine 35 y/o M admitted on 08/02/21 for gastroparesis. Chief Complaint: [] Date of admission: 08/02/21 17:45 Discharge date: 08/04/21 Primary care physician: Flo Peña MD Consults: 08/02/21 Consult to Physician [CONS] Stat Comment: Consulting Provider: Deangelo Basilio Reason For Exam: Physician to Consult Discharge Meds Discharge Medications Home Medications atorvastatin 40 mg tablet 40 mg PO HS 02/13/19 [History Confirmed 08/03/21 Last Taken 06/02/21 09:00] aluminum-mag hydroxide-simethicone 400 mg-400 mg-40 mg/5 mL oral susp (Mylanta Maximum Strength) 10 ml PO TID PRN 04/04/19 [History Confirmed 08/03/21 Last Taken 06/04/21 09:00] calcium carbonate 300 mg (750 mg) chewable tablet (Tums) 600 mg PO ONCE tab 02/11/21 [History Confirmed 08/03/21 Last Taken 05/28/21] cholecalciferol (vitamin D3) 50 mcg (2,000 unit) capsule 50 mcg PO QDAY 02/11/21 [History Confirmed 08/03/21 Last Taken 05/18/21] cyanocobalamin (vitamin B-12) 1,000 mcg capsule 1,000 mcg PO QHS cap 02/11/21 [History Confirmed 08/03/21 Last Taken 05/18/21] melatonin 10 mg tablet 10 mg PO HS PRN 02/11/21 [History Confirmed 08/03/21 Last Taken 05/31/21 21:00] calcium cit 250 mg-ergocalciferol (vit D2) 2.5 mcg (100 unit) tablet (Farshad- Citrate) 1 tab PO QHS tab 03/26/21 [History Confirmed 08/03/21 Last Taken 05/31/21 09:00] clonidine 0.2 mg/24 hr weekly transdermal patch 1 patch TRANSDERMAL QWEEK #4 ea 03/26/21 [Rx Confirmed 08/03/21 Last Taken 06/02/21 09:00] insulin aspart U-100 100 unit/mL subcutaneous solution (Novolog U-100 Insulin aspart) See Rx Instructions .ROUTE .COMPLEX 03/26/21 [History Confirmed 08/03/21 Last Taken 06/04/21 18:00] carvedilol 6.25 mg tablet 6.25 mg PO BID #180 tab 06/19/21 [Rx Confirmed 08/03/21 Last Taken Unknown] lisinopril 10 mg tablet 10 mg PO QDAY #90 tab 07/01/21 [Rx Confirmed 08/03/21 Last Taken Unknown] zofran 4 mg IV Q4H PRN #2 dose 07/01/21 [Rx Confirmed 08/03/21 Last Taken Unknown] ketamine 50mg/ml nasal spray 1 - 3 spray INTRANASAL PRN 07/03/21 [History Confirmed 08/03/21 Last Taken Unknown] fluoxetine 10 mg capsule See Rx Instructions .ROUTE .COMPLEX #60 cap 07/08/21 [Rx Confirmed 08/03/21 Last Taken Unknown] fluvoxamine 100 mg tablet 100 mg PO QHS 08/03/21 [History Confirmed 08/03/21 Last Taken Unknown] furosemide 20 mg tablet 20 mg PO QAM PRN 08/03/21 [History Confirmed 08/03/21 Last Taken Unknown] lorazepam 1 mg tablet 1 - 2 mg PO DAILYP PRN 08/03/21 [History Confirmed 08/03/21 Last Taken Unknown] COURSE Hospital Course Hospital course: History of present illness: Mr. Levine is a 35 year old M Similar presentation as in May. He has a history of diabetes type 1 on insulin pump and gastroparesis woke up has developed nausea vomiting past couple days. Commonly wakes up in the morning with nausea vomiting and it usually goes away but has persisted. As he monitor sugars they continue to increase. Blood glucose in the ED was about 700 his creatinine. Ending urinalysis. mildly elevated. Corrected sodium within normal limits. Creatinine around baseline. Anion gap 24 with a normal pH. Bicarb 30. Beta hydroxybutyrate uric acid at 5 Given IV insulin and started on a drip in the ED. 08/03 Patient feeling better today. Tolerating clear liquid diet. Awaiting father to bring in insulin pump. 08/04 Doing well. Insulin pump in place. Stable for discharge A: *HHS/DKA overlap: improving *DM type I with Gastroparesis/Neuropathy: -A1c 8.9 (June) *Hypovolemia: improved *CKD III (~2's): Follows with Dr. Mills *Anemia, chronic *HTN: On coreg/clonidine/lisinopril *Anxiety/depression: *GERD: Discharge diagnosis: HHS-DKA overlap Secondary discharge diagnosis: Diabetes hypovolemia chronic disease chronic anemia hypertension anxiety pression GERD Time Spent with Patient Time attestation: Total time spent providing and/or coordinating discharge services: Time spent: Greater than 30 minutes EXAM Constitutional Vitals: Temp Pulse Resp BP Pulse Ox 98.6 F 71 24 H 129/84 98 08/03/21 08:01 08/03/21 10:06 08/03/21 10:06 08/03/21 10:02 08/03/21 10:06 Discharge Data Data Completed and Pending Labs on day of discharge: Labs from last 24 hours 08/03/21 08/03/21 08/03/21 05:22 05:21 04:36 WBC 10.0 RBC 4.01 L Hgb 11.4 L Hct 34.6 L MCV 86.3 MCH 28.4 MCHC 32.9 RDW 13.2 Plt Count 217 MPV 11.6 H Neut % (Auto) Lymph % (Auto) [place] % (Auto) Eos % (Auto) Baso % (Auto) Lymph # (Auto) [place] # (Auto) Eos # (Auto) Baso # (Auto) Seg Neutrophils % 70 Lymphocytes % 20 Monocytes % (Manual) 9 Eosinophils % (Manual) 1 Absolute Neutrophils Platelet Estimate Normal RBC Morphology Abnormal A Hypochromasia 1+ A ABG Methemoglobin VBG pH VBG pCO2 VBG pO2 VBG HCO3 VBG Total CO2 VBG O2 Saturation VBG Base Excess Carboxyhemoglobin Total Hemoglobin Sodium 132 L Potassium 3.6 Chloride 91 L Carbon Dioxide 30 Anion Gap 11.0 BUN 20 Creatinine 2.1 H GFR Calculation 40 Glucose 290 H Osmolality 289 Uric Acid 6.9 Calcium 7.7 L Phosphorus 3.2 Magnesium 2.2 Total Bilirubin 0.3 Direct Bilirubin < 0.2 GGT 9 AST 10 ALT 7 Alkaline Phosphatase 86 Lactate Dehydrogenase 154 Total Protein 5.6 L Albumin 3.2 Globulin 2.4 Albumin/Globulin Ratio 1.3 Triglycerides 78 Beta-Hydroxybutyrate 0.07 Urine Color Yellow Urine Appearance Clear Urine pH 9.0 Ur Specific [place] 1.012 Urine Protein 100 A Urine Glucose (UA) >=500 A Urine Ketones 5 A Urine Occult Blood Negative Urine Nitrate Negative Urine Bilirubin Negative Urine Urobilinogen Negative Ur Leukocyte Esterase Negative Urine RBC < 1 Urine WBC < 1 Ur Squamous Epith Cells < 1 Urine Bacteria None Hyaline Casts 1 Ur Culture Indicated? No 08/02/21 08/02/21 08/02/21 17:06 16:56 13:23 WBC RBC Hgb Hct MCV MCH MCHC RDW Plt Count MPV Neut % (Auto) Lymph % (Auto) [place] % (Auto) Eos % (Auto) Baso % (Auto) Lymph # (Auto) [place] # (Auto) Eos # (Auto) Baso # (Auto) Seg Neutrophils % Lymphocytes % Monocytes % (Manual) Eosinophils % (Manual) Absolute Neutrophils Platelet Estimate RBC Morphology Hypochromasia ABG Methemoglobin 0.3 L VBG pH 7.52 H VBG pCO2 45.4 VBG pO2 41.3 H VBG HCO3 36.0 H VBG Total CO2 37.4 H VBG O2 Saturation 74.6 H VBG Base Excess 12 H Carboxyhemoglobin 5.2 H Total Hemoglobin 14.4 Sodium Potassium Chloride Carbon Dioxide Anion Gap BUN Creatinine GFR Calculation Glucose Osmolality 321 H Uric Acid Calcium Phosphorus 4.3 Magnesium 3.1 H Total Bilirubin Direct Bilirubin GGT AST ALT Alkaline Phosphatase Lactate Dehydrogenase Total Protein Albumin Globulin Albumin/Globulin Ratio Triglycerides Beta-Hydroxybutyrate Urine Color Urine Appearance Urine pH Ur Specific [place] Urine Protein Urine Glucose (UA) Urine Ketones Urine Occult Blood Urine Nitrate Urine Bilirubin Urine Urobilinogen Ur Leukocyte Esterase Urine RBC Urine WBC Ur Squamous Epith Cells Urine Bacteria Hyaline Casts Ur Culture Indicated? 08/02/21 08/02/21 13:23 13:23 WBC 12.4 H RBC 5.14 Hgb 14.8 Hct 44.3 MCV 86.2 MCH 28.8 MCHC 33.4 RDW 12.8 Plt Count 266 MPV 11.7 H Neut % (Auto) 87.1 H Lymph % (Auto) 7.1 L [place] % (Auto) 5.3 Eos % (Auto) 0 Baso % (Auto) 0.5 Lymph # (Auto) 0.88 L [place] # (Auto) 0.66 Eos # (Auto) 0 Baso # (Auto) 0.06 Seg Neutrophils % Lymphocytes % Monocytes % (Manual) Eosinophils % (Manual) Absolute Neutrophils 10.80 H Platelet Estimate RBC Morphology Hypochromasia ABG Methemoglobin VBG pH VBG pCO2 VBG pO2 VBG HCO3 VBG Total CO2 VBG O2 Saturation VBG Base Excess Carboxyhemoglobin Total Hemoglobin Sodium 129 L Potassium 4.1 Chloride 75 L Carbon Dioxide 30 Anion Gap 24.0 H BUN 26 H Creatinine 2.5 H GFR Calculation 32 Glucose 698 H* Osmolality Uric Acid Calcium 9.4 Phosphorus Magnesium Total Bilirubin 0.7 Direct Bilirubin GGT AST 11 ALT 10 Alkaline Phosphatase 130 H Lactate Dehydrogenase Total Protein 8.1 Albumin 4.4 Globulin 3.7 Albumin/Globulin Ratio 1.2 Triglycerides Beta-Hydroxybutyrate 5.11 H Urine Color Urine Appearance Urine pH Ur Specific [place] Urine Protein Urine Glucose (UA) Urine Ketones Urine Occult Blood Urine Nitrate Urine Bilirubin Urine Urobilinogen Ur Leukocyte Esterase Urine RBC Urine WBC Ur Squamous Epith Cells Urine Bacteria Hyaline Casts Ur Culture Indicated? Discharge Plan Patient/Caregiver Discharge Instructions Activity: increase activity as tolerated Diet: Low Fat and Consistent Carbohydrate Instructions: Hypokalemia (GEN), Diabetic Ketoacidosis (GEN), Gastroparesis (GEN) Activity Restrictions/Additional Instructions: Increase activity as tolerated, continue with a Consistent Carbohydrate, Low Fat diet. Please follow up with Viola Khan, Diabetic Education regarding your Insulin Pump. ext. [phone] Prescriptions: Continued fluoxetine 10 mg capsule See Rx Instructions .Route .COMPLEX Qty: 60 1RF Rx Instructions: TAKE ONE CAPSULE BY MOUTH DAILY FOR ONE WEEK, THEN TAKE TWO CAPSULES BY MOUTH DAILY carvedilol 6.25 mg tablet 6.25 mg PO BID Qty: 180 0RF Rx Instructions: must administer with a meal/food zofran 4 mg IV Q4H PRN (Reason: nausea and vomiting) Qty: 2 0RF Rx Instructions: IV Zofran 4 mg q. 4 hours as needed for 2 doses lisinopril 10 mg tablet 10 mg PO QDAY Qty: 90 1RF Rx Instructions: 1 tab QD noon, if no N/V or dehydration Farshad-Citrate 250 mg-2.5 mcg (100 unit) tablet 1 tab PO QHS 0RF clonidine 0.2 mg/24 hr patch weekly 1 patch transdermal QWEEK Qty: 4 2RF ketamine 50mg/ml nasal spray 50 mg 1 - 3 spray intranasal PRN 0RF cyanocobalamin (vitamin B-12) 1,000 mcg capsule 1,000 mcg PO QHS 0RF cholecalciferol (vitamin D3) 50 mcg (2,000 unit) capsule 50 mcg PO QDAY 0RF melatonin 10 mg tablet 10 mg PO HS PRN (Reason: Insomnia) 0RF calcium carbonate [Tums] 300 mg (750 mg) tablet,chewable 600 mg PO ONCE 0RF alum-mag hydroxide-simeth [Mylanta Maximum Strength] 400-400-40 mg/5 mL suspension 10 ml PO TID PRN (Reason: Nausea) 0RF insulin aspart U-100 [Novolog U-100 Insulin aspart] 100 unit/mL solution See Rx Instructions .ROUTE .COMPLEX 0RF Rx Instructions: via insulin pump. 5265-8288 basal rate 1.2, 0320-7186 basal rate 1.1, 0700- 1900 basal rate 1.0, 0439-6501 basal rate 1.2 atorvastatin 40 MG tablet 40 mg PO HS 0RF No Action fluvoxamine 100 mg Tablet 100 mg PO QHS 0RF furosemide 20 mg Tablet 20 mg PO QAM PRN (Reason: Edema/hypertension) 0RF lorazepam 1 mg tablet 1 - 2 mg PO DAILYP PRN (Reason: nausea and vomiting) 0RF Follow Up Plan Follow up with: Flo Peña MD [Primary Care Provider] - 08/11/21 11:15 am (Please check in at 11:00 am) Patient Disposition: Home, Self-Care Prognosis: Fair Overall status at discharge: patient is progressing back to baseline Discharge Orders: Discharge Order (Routine); Ordered 08/04/21 Ordered By: Deangelo Baislio
[2021-08-03] MEDS: METOCLOPRAMIDE 10 MG/2 ML VIAL IV PRN ×2 (10:53→23:08)
[2021-08-03] MEDS ORDERED: 0.9 % SODIUM CHLORIDE 1,000 ML IV SCH (11:00)
[2021-08-03] MEDS ORDERED: INSULIN LISPRO 1 UNIT/0.01 ML UNIT SQ SCH (11:30)
[2021-08-03] MEDS ORDERED: LORazepam 1 MG TABLET PO PRN (20:24)
[2021-08-03] MEDS: ATORVASTATIN 40 MG TABLET PO SCH (21:05)
[2021-08-03] MEDS: CYANOCOBALAMIN (VITAMIN B-12) 500 MCG TABLET PO SCH (21:05)
[2021-08-03] MEDS: CALCIUM W/VIT D3 500 MG TABLET PO SCH (21:05)
[2021-08-04] MEDS: 0.9 % SODIUM CHLORIDE 10 ML SYRINGE IV SCH (06:00)
[2021-08-04] MEDS: OMEPRAZOLE 20 MG CAPSULE PO SCH (06:58)
[2021-08-04] MEDS: VITAMIN D3 25 MCG TABLET PO SCH (08:41)
[2021-08-04] MEDS: ENOXAPARIN 40 MG/0.4 ML SYRINGE SQ SCH (08:41)
[2021-08-04] MEDS: CARVEDILOL 6.25 MG TABLET PO SCH (08:41)
[2021-08-04] MEDS: FAMOTIDINE/PF 20 MG/2 ML VIAL IV SCH (08:41)
[2021-08-04] MEDS: FLUoxetine HCL 10 MG CAPSULE PO SCH (08:41)
[2021-08-04] MEDS: LISINOPRIL 10 MG TABLET PO SCH (08:41)
[2021-08-04] MEDS ORDERED: FLU VACC QS2021-22(6MOS UP)/PF 60 MCG/0.5 ML SYRINGE IM ONE (10:45)
[2021-08-09] MEDS ORDERED: cloNIDine TTS 2 1 PATCH PATCH TD SCH (09:00)
== END 2021-08-04 11:05 | disposition home or self-care (01) | DRG 638 ==
LOC: ED 12:48 → INTOOBSV 17:45 → ICU 17:45
PROVIDERS: ADMIT Internal Medicine; ATTEND Internal Medicine

== ENCOUNTER 2021-08-14 09:19 | Observation (INO) ==
--- NOTE | 2021-08-14 09:27 | Emergency Department Note ---
HPI General Chief complaint: Nausea/Vomiting/Diarrhea Stated complaint: "Gastroparesis" Time Seen by Provider: 08/14/21 09:27 Source: patient Mode of arrival: wheelchair Limitations: no limitations History of Present Illness HPI Narrative: 35-year-old male with past medical history of hypertension, hyperlipidemia, type 1 diabetes with CKD and gastroparesis presenting with nausea and vomiting for the last 2 days. Patient has had admissions in the past for DKA. He was discharged from the hospital 10 days ago but returns today because he has had 2 days of nonbloody, nonbilious emesis with mild abdominal cramping. Unable to keep down fluids. States his blood sugar was in the 290s this morning and he gave himself 7 units of insulin via his insulin pump prior to arrival. Blood glucose on arrival was 390. Related Data Home Medications Medication Instructions Recorded Confirmed atorvastatin 40 mg tablet 40 mg PO HS 02/13/19 08/06/21 aluminum-mag hydroxide-simethicone 10 ml PO TID PRN 04/04/19 08/06/21 400 mg-400 mg-40 mg/5 mL oral susp (Mylanta Maximum Strength) calcium carbonate 300 mg (750 mg) 600 mg PO ONCE tab 02/11/21 08/06/21 chewable tablet (Tums) cholecalciferol (vitamin D3) 50 50 mcg PO QDAY 02/11/21 08/06/21 mcg (2,000 unit) capsule cyanocobalamin (vitamin B-12) 1,000 mcg PO QHS cap 02/11/21 08/06/21 1,000 mcg capsule melatonin 10 mg tablet 10 mg PO HS PRN 02/11/21 08/06/21 calcium cit 250 mg-ergocalciferol 1 tab PO QHS tab 03/26/21 08/06/21 (vit D2) 2.5 mcg (100 unit) tablet (Farshad-Citrate) insulin aspart U-100 100 unit/mL See Rx Instructions .ROUTE .COMPLEX 03/26/21 08/06/21 subcutaneous solution (Novolog U-100 Insulin aspart) ketamine 50mg/ml nasal spray 1 - 3 spray INTRANASAL PRN 07/03/21 08/06/21 fluvoxamine 100 mg tablet 100 mg PO QHS 08/03/21 08/06/21 furosemide 20 mg tablet 20 mg PO QAM PRN 08/03/21 08/06/21 lorazepam 1 mg tablet 1 - 2 mg PO DAILYP PRN 08/03/21 08/06/21 Previous Rx's Medication Instructions Recorded clonidine 0.2 mg/24 hr weekly 1 patch TRANSDERMAL QWEEK #4 ea 03/26/21 transdermal patch carvedilol 6.25 mg tablet 6.25 mg PO BID #180 tab 06/19/21 lisinopril 10 mg tablet 10 mg PO QDAY #90 tab 07/01/21 zofran 4 mg IV Q4H PRN #2 dose 07/01/21 fluoxetine 10 mg capsule See Rx Instructions .ROUTE 07/08/21 .COMPLEX #60 cap Allergies Allergy/AdvReac Type Severity Reaction Status Date / Time NSAIDS (Non-Steroidal Allergy Unknown Unknown Verified 08/02/21 12:48 Anti-Inflamma metoclopramide [From Reglan] AdvReac Mild Agitated Verified 08/02/21 12:48 prochlorperazine AdvReac Mild "My whole Verified 08/02/21 12:48 [From Compazine] body freaks out." silver AdvReac Mild dystonic Verified 08/04/21 07:00 IV iodine contrast Allergy Unknown Unknown Uncoded 07/09/21 16:06 Review of Systems ROS ROS Narrative: Narrative: Constitutional: Denies fever or chills ENT ED: Denies throat pain Cardiovascular: Denies chest pain Respiratory: Denies shortness of breath or cough Gastrointestinal: Reports abdominal pain, nausea and vomiting; Denies diarrhea, hematochezia or melena Genitourinary: Denies dysuria or frequency Musculoskeletal: Denies back pain or joint swelling Integumentary: Denies rash Neurological: Reports weakness; Denies headache, numbness, paresthesias or dizziness Psychiatric: Denies anxiety Endocrine: Denies fatigue Hematological/Lymphatic: Denies easy bleeding PFSH Narrative Patient History Narrative: Narrative: Medical/Surgical/Family History All Active Problems (Updated 08/14/21 @ 18:48 by Milton Loera MD) Testosterone deficiency (Chronic) Nausea and vomiting (Chronic) GERD (gastroesophageal reflux disease) (Chronic) Other hammer toe(s) (acquired), left foot (Chronic) Hypertension, essential (Chronic) Hyperlipidemia (Chronic) History of neuroleptic malignant syndrome (Chronic) Dehydration (Acute) Drug-induced nausea and vomiting (Acute) Uncontrolled type 1 diabetes mellitus with diabetic nephropathy, with long-term current use of insulin (Chronic) Cyclic vomiting syndrome (Chronic) Type 1 diabetes mellitus with stage 3 chronic kidney disease and hypertension (Chronic) Marijuana use, continuous (Chronic) CKD (chronic kidney disease) (Acute) Nephrotic range proteinuria (Chronic) Controlled type 1 diabetes mellitus with chronic kidney disease (Chronic) Port-A-Cath in place (Acute) Diabetic gastroparesis associated with type 1 diabetes mellitus (Chronic) Diabetic neuropathy associated with type 1 diabetes mellitus (Chronic) Diabetic retinopathy associated with type 1 diabetes mellitus (Chronic) Anxiety (Chronic) Back pain (Chronic) Physical deconditioning (Chronic) Malnutrition (Chronic) Acute dehydration (Acute) Acute hypokalemia (Acute) QT prolongation (Acute) Dehydration (Acute) No-show for appointment (Acute) Intractable cyclical vomiting with nausea (Acute) Diabetic gastroparesis (Acute) ROSALIO (acute kidney injury) (Acute) Hyperglycemia (Acute) Dehydration (Acute) Major depressive disorder, recurrent (Acute) Generalized anxiety disorder (Acute) Trauma and stressor-related disorder (Acute) Diabetic gastroparesis (Acute) Nausea & vomiting (Acute) Acute dehydration (Acute) Ketosis (Acute) Uncontrolled diabetes mellitus (Acute) DKA (diabetic ketoacidosis) (Acute) Medical History Abdominal pain, epigastric Anxiety Back pain Chronic ulcer of left foot Coffee ground emesis Diabetes mellitus type I Age 12, With foot ulcer Diabetic gastroparesis associated with type 1 diabetes mellitus Diabetic neuropathy associated with type 1 diabetes mellitus Diabetic peripheral neuropathy Diabetic retinopathy associated with type 1 diabetes mellitus DKA, type 1 Esophageal candidiasis Gastroenteritis Gastroparesis due to DM GERD (gastroesophageal reflux disease) Hallux valgus (acquired), left foot History of neuroleptic malignant syndrome To compazine (prochlorperazine). Tolerates promethazine without issue Hyperlipidemia Hypertension, essential labile due to unpredictable Rx absorption with gastroparesis and propensity for dehydration Holds lisinopril if persistent vomiting occurs Hypokalemia Connie-Byrne tear Malnutrition Marijuana use, continuous Nausea and vomiting Non-pressure chronic ulcer of other part of left foot limited to breakdown of skin Other hammer toe(s) (acquired), left foot Peripheral autonomic neuropathy due to DM Physical deconditioning Sepsis Tardive dyskinesia due to metoclopramide (Reglan) Testosterone deficiency Surgical History History of toe surgery left hallux Family History Mother Atrial fibrillation Essential hypertension Sister Malignant neoplasm of female breast Maternal Grandfather Malignant neoplasm of colon Recorded 11/12/10 Father Essential hypertension Other Adopted DKA, type 1 Social History Smoking Status: Former smoker Alcohol Intake Frequency: former alcohol drinker Substance Use: marijuana (Occasional) Exam Narrative Narrative: Narrative: General Limitations: no limitations General appearance: Present alert and other (Appears uncomfortable, actively dry heaving in the room) Head Head: Present atraumatic and normocephalic Eye Eye: Present normal appearance, PERRL and EOMI; Absent scleral icterus or conjunctival injection ENT ENT: Present normal oropharynx and mucous membranes dry Neck Neck: Present normal inspection, full ROM and trachea midline; Absent meningismus or lymphadenopathy Chest Chest: Present symmetric chest wall rise Respiratory Respiratory: Present normal lung sounds bilaterally; Absent respiratory distress, wheezes, stridor, accessory muscle use or prolonged expiratory phase Cardiovascular Cardiovascular: Present normal rhythm, tachycardia and systolic murmur; Absent diastolic murmur Adbominal Abdominal: Present soft; Absent distention, tenderness, guarding, rebound, rigidity, organomegaly or mass Extremities Extremities: Present normal inspection; Absent pretibial edema Back Back: Present normal inspection; Absent CVA tenderness (R), CVA tenderness (L) o r spinous process tenderness Neurological Neurological: Present alert, oriented X3 and CN II-XII intact; Absent motor sensory deficit Psychiatric Psychiatric: Present normal affect and normal mood Skin Skin: Present warm (WNL) and dry Course Consultations Consultation #1: Dr. King, hospitalist Time: 18:48 Vital Signs Vital signs: Vital Signs Pulse Rate 102 H 08/14/21 09:35 Blood Pressure 123/88 08/14/21 09:35 Pulse Oximetry (%) 100 08/14/21 09:35 Pulse Rate 92 H 08/14/21 18:07 Blood Pressure 143/79 08/14/21 17:00 Pulse Oximetry (%) 100 08/14/21 18:07 [facility] Narrative Medical decision making narrative: 35-year-old male presenting with nausea and vomiting. Likely gastroparesis with concern for DKA given his history. Will give IV fluids, antiemetics, obtain labs, UA, and reevaluate. Labs consistent with DKA with elevated anion gap and elevated ketones. He was given 2 L of normal saline and potassium chloride. He was given 10 unit insulin bolus and started on an insulin drip at 6 units/h. 1850: Repeat labs after 6 hours show an improvement in lactic acid from 2.2-1.1. Anion gap is cleared, going from 24 to 13. Blood sugar is down to the 160s and he was started on D5 half-normal saline. Insulin drip decreased to 3 units/h. UA is still pending. I endorsed patient to Dr. King, hospitalist, for admission. Lab Data Lab results reviewed: Yes I reviewed the patient's lab results. Result diagrams: 08/14/21 09:43 08/14/21 16:19 Labs: Lab Results 08/14/21 08/14/21 08/14/21 Range/Units 09:43 09:43 09:43 WBC 17.2 H (4.5-11.0) K/mcL RBC 5.22 (4.63-6.08) M/mcL Hgb 14.8 (13.7-17.5) g/dL Hct 42.9 (40.1-51.0) % MCV 82.2 (80.0-100.0) fL MCH 28.4 (26.0-34.0) pg MCHC 34.5 (31.0-36.0) g/dL RDW 13.4 (11.5-14.5) % Plt Count 435 (140-440) K/mcL MPV 11.2 H (7.4-10.4) fL Neut % (Auto) 84.6 H (38.0-78.0) % Lymph % (Auto) 8.3 L (15.5-49.0) % [place] % (Auto) 6.7 (1.0-12.0) % Eos % (Auto) 0.1 (0.0-7.0) % Baso % (Auto) 0.3 (0.0-2.0) % Lymph # (Auto) 1.42 L (1.50-4.80) K/mcL [place] # (Auto) 1.15 H (0.10-0.90) K/mcL Eos # (Auto) 0.02 (0.00-0.70) K/mcL Baso # (Auto) 0.05 (0.00-0.30) K/mcL Absolute Neutrophils 14.55 H (1.80-8.00) K/mcL ABG Methemoglobin (0.4-1.5) % VBG pH (7.32-7.42) U VBG pCO2 (41.0-51.0) mmHg VBG pO2 (25.0-40.0) mmHg VBG HCO3 (24.0-28.0) mmol/L VBG Total CO2 (25.0-29.0) mmol/L VBG O2 Saturation (40.0-70.0) % VBG Base Excess (-2-2) VBG Lactic Acid 2.2 H (0.5-2.0) mmol/L Carboxyhemoglobin (0.0-1.5) % THgb Total Hemoglobin (13.5-16.5) gm/Dl Sodium 134 (133-145) mmol/L Potassium 3.8 (3.3-5.1) mmol/L Chloride 69 L (96-108) mmol/L Carbon Dioxide 41 H* (22-30) mmol/L Anion Gap 24.0 H (8.0-16.0) BUN 39 H (6-20) mg/dL Creatinine 3.5 H (0.7-1.2) mg/dL GFR Calculation 21 Glucose 439 H (70-105) mg/dL Calcium 9.6 (8.6-10.4) mg/dL Magnesium (1.6-2.5) mg/dL Total Bilirubin 0.4 (0.1-1.0) mg/dL AST 18 (<40) U/L ALT 12 (<40) U/L Alkaline Phosphatase 137 H (39-117) U/L Total Protein 8.3 (5.9-8.4) gm/dL Albumin 4.4 (3.2-5.2) gm/dL Globulin 3.9 H (2.2-3.7) gm/dL Albumin/Globulin Ratio 1.1 (1.0-2.3) Lipase 16 (7-60) U/L Beta-Hydroxybutyrate 4.49 H (<0.27) mmol/L 08/14/21 08/14/21 08/14/21 Range/Units 11:51 11:51 16:19 WBC (4.5-11.0) K/mcL RBC (4.63-6.08) M/mcL Hgb (13.7-17.5) g/dL Hct (40.1-51.0) % MCV (80.0-100.0) fL MCH (26.0-34.0) pg MCHC (31.0-36.0) g/dL RDW (11.5-14.5) % Plt Count (140-440) K/mcL MPV (7.4-10.4) fL Neut % (Auto) (38.0-78.0) % Lymph % (Auto) (15.5-49.0) % [place] % (Auto) (1.0-12.0) % Eos % (Auto) (0.0-7.0) % Baso % (Auto) (0.0-2.0) % Lymph # (Auto) (1.50-4.80) K/mcL [place] # (Auto) (0.10-0.90) K/mcL Eos # (Auto) (0.00-0.70) K/mcL Baso # (Auto) (0.00-0.30) K/mcL Absolute Neutrophils (1.80-8.00) K/mcL ABG Methemoglobin 0 L (0.4-1.5) % VBG pH 7.52 H (7.32-7.42) U VBG pCO2 59.4 H (41.0-51.0) mmHg VBG pO2 139.3 H (25.0-40.0) mmHg VBG HCO3 47.9 H* (24.0-28.0) mmol/L VBG Total CO2 49.7 H* (25.0-29.0) mmol/L VBG O2 Saturation 94.5 H (40.0-70.0) % VBG Base Excess 22 H (-2-2) VBG Lactic Acid (0.5-2.0) mmol/L Carboxyhemoglobin 4.6 H (0.0-1.5) % THgb Total Hemoglobin 13.3 L (13.5-16.5) gm/Dl Sodium 137 (133-145) mmol/L Potassium 3.4 (3.3-5.1) mmol/L Chloride 78 L (96-108) mmol/L Carbon Dioxide 46 H* (22-30) mmol/L Anion Gap 13.0 (8.0-16.0) BUN 37 H (6-20) mg/dL Creatinine 3.4 H (0.7-1.2) mg/dL GFR Calculation 22 Glucose 185 H (70-105) mg/dL Calcium 8.6 (8.6-10.4) mg/dL Magnesium 3.2 H (1.6-2.5) mg/dL Total Bilirubin (0.1-1.0) mg/dL AST (<40) U/L ALT (<40) U/L Alkaline Phosphatase (39-117) U/L Total Protein (5.9-8.4) gm/dL Albumin (3.2-5.2) gm/dL Globulin (2.2-3.7) gm/dL Albumin/Globulin Ratio (1.0-2.3) Lipase (7-60) U/L Beta-Hydroxybutyrate (<0.27) mmol/L 08/14/21 Range/Units 16:19 WBC (4.5-11.0) K/mcL RBC (4.63-6.08) M/mcL Hgb (13.7-17.5) g/dL Hct (40.1-51.0) % MCV (80.0-100.0) fL MCH (26.0-34.0) pg MCHC (31.0-36.0) g/dL RDW (11.5-14.5) % Plt Count (140-440) K/mcL MPV (7.4-10.4) fL Neut % (Auto) (38.0-78.0) % Lymph % (Auto) (15.5-49.0) % [place] % (Auto) (1.0-12.0) % Eos % (Auto) (0.0-7.0) % Baso % (Auto) (0.0-2.0) % Lymph # (Auto) (1.50-4.80) K/mcL [place] # (Auto) (0.10-0.90) K/mcL Eos # (Auto) (0.00-0.70) K/mcL Baso # (Auto) (0.00-0.30) K/mcL Absolute Neutrophils (1.80-8.00) K/mcL ABG Methemoglobin (0.4-1.5) % VBG pH (7.32-7.42) U VBG pCO2 (41.0-51.0) mmHg VBG pO2 (25.0-40.0) mmHg VBG HCO3 (24.0-28.0) mmol/L VBG Total CO2 (25.0-29.0) mmol/L VBG O2 Saturation (40.0-70.0) % VBG Base Excess (-2-2) VBG Lactic Acid 1.1 (0.5-2.0) mmol/L Carboxyhemoglobin (0.0-1.5) % THgb Total Hemoglobin (13.5-16.5) gm/Dl Sodium (133-145) mmol/L Potassium (3.3-5.1) mmol/L Chloride (96-108) mmol/L Carbon Dioxide (22-30) mmol/L Anion Gap (8.0-16.0) BUN (6-20) mg/dL Creatinine (0.7-1.2) mg/dL GFR Calculation Glucose (70-105) mg/dL Calcium (8.6-10.4) mg/dL Magnesium (1.6-2.5) mg/dL Total Bilirubin (0.1-1.0) mg/dL AST (<40) U/L ALT (<40) U/L Alkaline Phosphatase (39-117) U/L Total Protein (5.9-8.4) gm/dL Albumin (3.2-5.2) gm/dL Globulin (2.2-3.7) gm/dL Albumin/Globulin Ratio (1.0-2.3) Lipase (7-60) U/L Beta-Hydroxybutyrate (<0.27) mmol/L EKG Data EKG #1: EKG attestation: Yes I reviewed and interpreted this EKG. and Yes There are no EKG findings of acute coronary syndrome EKG results narrative: Sinus tachycardia at [address] elevation or depression. QT is prolonged. Discharge Plan Patient/Caregiver Discharge Instructions Pt seen by INSIDE SALES REPRESENTATIVE/PA only: No Clinical Impression: DKA (diabetic ketoacidosis) Patient Disposition: Xfer As Inpt ([facility]) Follow up with: Flo Peña MD [Primary Care Provider] - Prescriptions: No Action fluoxetine 10 mg capsule See Rx Instructions .Route .COMPLEX Qty: 60 1RF Rx Instructions: TAKE ONE CAPSULE BY MOUTH DAILY FOR ONE WEEK, THEN TAKE TWO CAPSULES BY MOUTH DAILY carvedilol 6.25 mg tablet 6.25 mg PO BID Qty: 180 0RF Rx Instructions: must administer with a meal/food zofran 4 mg IV Q4H PRN (Reason: nausea and vomiting) Qty: 2 0RF Rx Instructions: IV Zofran 4 mg q. 4 hours as needed for 2 doses lisinopril 10 mg tablet 10 mg PO QDAY Qty: 90 1RF Rx Instructions: 1 tab QD noon, if no N/V or dehydration Farshad-Citrate 250 mg-2.5 mcg (100 unit) tablet 1 tab PO QHS 0RF clonidine 0.2 mg/24 hr patch weekly 1 patch transdermal QWEEK Qty: 4 2RF ketamine 50mg/ml nasal spray 50 mg 1 - 3 spray intranasal PRN 0RF cyanocobalamin (vitamin B-12) 1,000 mcg capsule 1,000 mcg PO QHS 0RF cholecalciferol (vitamin D3) 50 mcg (2,000 unit) capsule 50 mcg PO QDAY 0RF melatonin 10 mg tablet 10 mg PO HS PRN (Reason: Insomnia) 0RF calcium carbonate [Tums] 300 mg (750 mg) tablet,chewable 600 mg PO ONCE 0RF alum-mag hydroxide-simeth [Mylanta Maximum Strength] 400-400-40 mg/5 mL suspension 10 ml PO TID PRN (Reason: Nausea) 0RF insulin aspart U-100 [Novolog U-100 Insulin aspart] 100 unit/mL solution See Rx Instructions .ROUTE .COMPLEX 0RF Rx Instructions: via insulin pump. 4199-3584 basal rate 1.2, 0781-6091 basal rate 1.1, 0700- 1900 basal rate 1.0, 8899-9888 basal rate 1.2 atorvastatin 40 MG tablet 40 mg PO HS 0RF fluvoxamine 100 mg Tablet 100 mg PO QHS 0RF furosemide 20 mg Tablet 20 mg PO QAM PRN (Reason: Edema/hypertension) 0RF lorazepam 1 mg tablet 1 - 2 mg PO DAILYP PRN (Reason: nausea and vomiting) 0RF
[2021-08-14] MEDS ORDERED: ONDANSETRON 4 MG/2 ML VIAL IV ONE ×2 (09:34→17:28)
[2021-08-14] MEDS ORDERED: 0.9 % SODIUM CHLORIDE 1,000 ML IV ONE (09:34)
[2021-08-14] MEDS ORDERED: PROMETHAZINE 25 MG/ML VIAL IV ONE ×2 (09:34→17:28)
[2021-08-14 10:30] LABS: Basophils # (Auto) 0.05 K/mcL (0.00-0.30); Basophils % (Auto) 0.3 % (0.0-2.0); Eosinophils # (Auto) 0.02 K/mcL (0.00-0.70); Eosinophils % (Auto) 0.1 % (0.0-7.0); Hematocrit 42.9 % (40.1-51.0); Hemoglobin 14.8 g/dL (13.7-17.5); Lymphocytes # (Auto) 1.42 K/mcL (1.50-4.80); Lymphocytes % (Auto) 8.3 % (15.5-49.0); Mean Cell Volume 82.2 fL (80.0-100.0); Mean Corpuscular HGB Conc 34.5 g/dL (31.0-36.0); Mean Platelet Volume 11.2 fL (7.4-10.4); Monocytes # (Auto) 1.15 K/mcL (0.10-0.90); Monocytes % (Auto) 6.7 % (1.0-12.0); Neutrophils % (Auto) 84.6 % (38.0-78.0); Platelet Count 435 K/mcL (140-440); RBC 5.22 M/mcL (4.63-6.08); Red Cell Distribution Width 13.4 % (11.5-14.5); WBC 17.2 K/mcL (4.5-11.0)
[2021-08-14 10:49] LABS: Beta Hydroxybutyrate 4.49 mmol/L (<0.27)
[2021-08-14 10:52] LABS: ALT/SGPT 12 U/L (<40); AST/SGOT 18 U/L (<40); Albumin 4.4 gm/dL (3.2-5.2); Albumin/Globulin Ratio 1.1 (1.0-2.3); Alkaline Phosphatase 137 U/L (39-117); Bilirubin,Total 0.4 mg/dL (0.1-1.0); Blood Urea Nitrogen 39 mg/dL (6-20); Calcium 9.6 mg/dL (8.6-10.4); Carbon Dioxide 41 mmol/L (22-30); Chloride 69 mmol/L (96-108); Globulin 3.9 gm/dL (2.2-3.7); Glomerular Filtration Rate 21; Glucose 439 mg/dL (70-105)
[2021-08-14 12:26] LABS: ABG Methemoglobin 0 % (0.4-1.5); Total Hemoglobin 13.3 gm/Dl (13.5-16.5); VBG Base Excess 22 (-2-2); VBG HCO3 47.9 mmol/L (24.0-28.0); VBG Oxygen Saturation 94.5 % (40.0-70.0); VBG PCO2 59.4 mmHg (41.0-51.0); VBG PH 7.52 U (7.32-7.42); VBG PO2 139.3 mmHg (25.0-40.0); VBG Total CO2 49.7 mmol/L (25.0-29.0)
[2021-08-14] MEDS ORDERED: INSULIN REGULAR, HUMAN 1 UNIT/0.01 ML UNIT IV ONE (12:39)
[2021-08-14] MEDS ORDERED: POTASSIUM CHLORIDE 20 MEQ in DEXTROSE 5% IN WATER 250 ML IV ONE (12:39)
[2021-08-14] MEDS ORDERED: INSULIN REGULAR, HUMAN 50 UNIT in 0.9 % SODIUM CHLORIDE 99.5 ML IV SCH (12:45)
[2021-08-14] MEDS: 0.9 % SODIUM CHLORIDE 1,000 ML IV SCH ×2 (13:59→19:36)
[2021-08-14] MEDS ORDERED: DEXTROSE 5%-1/2NS 1,000 ML IV SCH (14:15)
[2021-08-14 17:37] LABS: Blood Urea Nitrogen 37 mg/dL (6-20); Calcium 8.6 mg/dL (8.6-10.4); Carbon Dioxide 46 mmol/L (22-30); Chloride 78 mmol/L (96-108); Glomerular Filtration Rate 22; Glucose 185 mg/dL (70-105)
[2021-08-14] MEDS ORDERED: ACETAMINOPHEN 325 MG TABLET PO PRN (19:35)
[2021-08-14] MEDS ORDERED: NITROGLYCERIN 0.4 MG TAB.SUBL SL PRN (19:35)
[2021-08-14] MEDS ORDERED: NALOXONE HCL 0.4 MG/ML VIAL IV PRN (19:35)
[2021-08-14] MEDS ORDERED: FLEETS ADULT ENEMA PR PRN (19:40)
[2021-08-14] MEDS ORDERED: MAGNESIUM HYDROXIDE 30 ML ORAL.SUSP PO PRN (19:40)
[2021-08-14] MEDS ORDERED: PROMETHAZINE 25 MG/ML VIAL IV PRN (19:40)
[2021-08-14] MEDS ORDERED: SENNOSIDES 1 TABLET PO PRN (19:40)
[2021-08-14] MEDS ORDERED: POTASSIUM CHLORIDE 40 MEQ in DEXTROSE 5% IN WATER 500 ML IV ONE (19:45)
--- NOTE | 2021-08-14 19:47 | EKG ---
[facility] Test Date: 2021-08-14 Pat Name: Mauri Levine Department: ED Room: Gender: Male Prune Washer: SELAM : 1985 Requested By: Milton Loera Order Number: [id number] Reading MD: Yessi Mcduffie D.O. Measurements Intervals [place] Rate: 103 P: 67 IA: 149 QRS: 73 QRSD: 85 T: 82 QT: 404 QTc: 529 Interpretive Statements Sinus tachycardia Biatrial enlargement Prolonged QT interval Electronically Signed On 08-14-2021 19:47:13 PST by Yessi Mcduffie D.O. /store/[id number]
--- NOTE | 2021-08-14 19:52 | Internal Med History&Physical ---
HPI History of Present Illness Patient information: Note initiated : 08/14/21 at 7:48 pm Service Date, if different from initiated Date: [] Patient: Mauri Levine 35 y/o M admitted on for "Gastroparesis". Chief Complaint: [] Chief complaint: Nausea and Vomting History of present illness: Mr. Levine 35 yr male with history of type 1 diabetes presents to the emergency room today for evaluation of nausea and vomiting going on for the last 3 days. The patient noted the symptoms started all of a sudden, has progressively gotten worse, he denies any blood in the vomit denies any black tarry stools. He has been diagnosed with diabetic gastroparesis, and has a vagal nerve implant in place. Given the fact that patient has not been able to tolerate p.o. for the last 3 days he presented to the hospital. The patient denies any fever or chills, denies any burning micturition, denies any acute abdominal pain. The patient notes that he has a insulin pump, and that the needle had dislodged a day prior to come to the ED. On arrival to the Emergency room the pateint was noted to be Hypoxic requiring 2 L of oxygen to maintain oxygen saturation more than 90%, he was mildly tachycardic, and clinically appeared dry. Lab work was significant for high anion gap metabolic acidosis, metabolic alkalosis, patient had elevated beta hydroxybutyrate. The patient was started on DKA protocol in the emergency room, IV fluids and IV insulin was given. Patient will be admitted to the hospital for further management Laboratory Tests 08/14/21 08/14/21 08/14/21 09:43 09:43 11:51 WBC 17.2 H VBG pH 7.52 H Carbon Dioxide Creatinine Beta-Hydroxybutyrate 4.49 H 08/14/21 16:19 WBC VBG pH Carbon Dioxide 46 H* Creatinine 3.4 H Beta-Hydroxybutyrate Constitutional Constitutional: Present as per HPI; Absent fever(s) or night sweats Cardiovascular Cardiovascular: Absent chest pain or pedal edema Respiratory Respiratory: Absent cough Gastrointestinal Gastrointestinal: Present nausea and vomiting Genitourinary Genitourinary: urinary hesitancy, urinary incontinence and urinary urgency Musculoskeletal Musculoskeletal: Absent back pain Integumentary Integumentary: Absent erythema or jaundice Neurological Neurological: Absent focal weakness or syncope Endocrine Endocrine: Present fatigue; Absent polydipsia, polyphagia or polyuria Hematologic/Lymphatic Hematologic/Lymphatic: Absent easy bleeding or easy bruising Allergic/Immunologic Allergic/Immunologic: Absent uticaria or wheezing PFSH PFSH All Active Problems Testosterone deficiency (Chronic) Nausea and vomiting (Chronic) GERD (gastroesophageal reflux disease) (Chronic) Other hammer toe(s) (acquired), left foot (Chronic) Hypertension, essential (Chronic) Hyperlipidemia (Chronic) History of neuroleptic malignant syndrome (Chronic) Dehydration (Acute) Drug-induced nausea and vomiting (Acute) Uncontrolled type 1 diabetes mellitus with diabetic nephropathy, with long-term current use of insulin (Chronic) Cyclic vomiting syndrome (Chronic) Type 1 diabetes mellitus with stage 3 chronic kidney disease and hypertension (Chronic) Marijuana use, continuous (Chronic) CKD (chronic kidney disease) (Acute) Nephrotic range proteinuria (Chronic) Controlled type 1 diabetes mellitus with chronic kidney disease (Chronic) Port-A-Cath in place (Acute) Diabetic gastroparesis associated with type 1 diabetes mellitus (Chronic) Diabetic neuropathy associated with type 1 diabetes mellitus (Chronic) Diabetic retinopathy associated with type 1 diabetes mellitus (Chronic) Anxiety (Chronic) Back pain (Chronic) Physical deconditioning (Chronic) Malnutrition (Chronic) Acute dehydration (Acute) Acute hypokalemia (Acute) QT prolongation (Acute) Dehydration (Acute) No-show for appointment (Acute) Intractable cyclical vomiting with nausea (Acute) Diabetic gastroparesis (Acute) ROSALIO (acute kidney injury) (Acute) Hyperglycemia (Acute) Dehydration (Acute) Major depressive disorder, recurrent (Acute) Generalized anxiety disorder (Acute) Trauma and stressor-related disorder (Acute) Diabetic gastroparesis (Acute) Nausea & vomiting (Acute) Acute dehydration (Acute) Ketosis (Acute) Uncontrolled diabetes mellitus (Acute) DKA (diabetic ketoacidosis) (Acute) Medical History Abdominal pain, epigastric Anxiety Back pain Chronic ulcer of left foot Coffee ground emesis Diabetes mellitus type I Age 12, With foot ulcer Diabetic gastroparesis associated with type 1 diabetes mellitus Diabetic neuropathy associated with type 1 diabetes mellitus Diabetic peripheral neuropathy Diabetic retinopathy associated with type 1 diabetes mellitus DKA, type 1 Esophageal candidiasis Gastroenteritis Gastroparesis due to DM GERD (gastroesophageal reflux disease) Hallux valgus (acquired), left foot History of neuroleptic malignant syndrome To compazine (prochlorperazine). Tolerates promethazine without issue Hyperlipidemia Hypertension, essential labile due to unpredictable Rx absorption with gastroparesis and propensity for dehydration Holds lisinopril if persistent vomiting occurs Hypokalemia Connie-Byrne tear Malnutrition Marijuana use, continuous Nausea and vomiting Non-pressure chronic ulcer of other part of left foot limited to breakdown of skin Other hammer toe(s) (acquired), left foot Peripheral autonomic neuropathy due to DM Physical deconditioning Sepsis Tardive dyskinesia due to metoclopramide (Reglan) Testosterone deficiency Surgical History History of toe surgery left hallux Family History Mother Atrial fibrillation Essential hypertension Sister Malignant neoplasm of female breast Maternal Grandfather Malignant neoplasm of colon Recorded 11/12/10 Father Essential hypertension Other Adopted DKA, type 1 Social History adopted: Yes household members: family housing: other details: 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 marital status: single occupational status: disabled occupation: On disability since 2016 physical activity: walking smoking status: Former smoker quit date: 02/12/11 alcohol intake frequency: former alcohol drinker substance use type: marijuana (Occasional) seatbelt use: always MEDS/ALLERGIES Home Medications and Allergies Home Medications Medication Instructions Recorded Confirmed Type atorvastatin 40 mg tablet 40 mg PO HS 02/13/19 08/06/21 History aluminum-mag hydroxide-simethicone 10 ml PO TID PRN 04/04/19 08/06/21 History 400 mg-400 mg-40 mg/5 mL oral susp (Mylanta Maximum Strength) calcium carbonate 300 mg (750 mg) 600 mg PO ONCE tab 02/11/21 08/06/21 History chewable tablet (Tums) cholecalciferol (vitamin D3) 50 50 mcg PO QDAY 02/11/21 08/06/21 History mcg (2,000 unit) capsule cyanocobalamin (vitamin B-12) 1,000 mcg PO QHS cap 02/11/21 08/06/21 History 1,000 mcg capsule melatonin 10 mg tablet 10 mg PO HS PRN 02/11/21 08/06/21 History calcium cit 250 mg-ergocalciferol 1 tab PO QHS tab 03/26/21 08/06/21 History (vit D2) 2.5 mcg (100 unit) tablet (Farshad-Citrate) clonidine 0.2 mg/24 hr weekly 1 patch TRANSDERMAL QWEEK #4 ea 03/26/21 08/06/21 Rx transdermal patch insulin aspart U-100 100 unit/mL See Rx Instructions .ROUTE .COMPLEX 03/26/21 08/06/21 History subcutaneous solution (Novolog U-100 Insulin aspart) carvedilol 6.25 mg tablet 6.25 mg PO BID #180 tab 06/19/21 08/06/21 Rx lisinopril 10 mg tablet 10 mg PO QDAY #90 tab 07/01/21 08/06/21 Rx zofran 4 mg IV Q4H PRN #2 dose 07/01/21 08/06/21 Rx ketamine 50mg/ml nasal spray 1 - 3 spray INTRANASAL PRN 07/03/21 08/06/21 History fluoxetine 10 mg capsule See Rx Instructions .ROUTE 07/08/21 08/06/21 Rx .COMPLEX #60 cap fluvoxamine 100 mg tablet 100 mg PO QHS 08/03/21 08/06/21 History furosemide 20 mg tablet 20 mg PO QAM PRN 08/03/21 08/06/21 History lorazepam 1 mg tablet 1 - 2 mg PO DAILYP PRN 08/03/21 08/06/21 History Allergies Allergy/AdvReac Type Severity Reaction Status Date / Time NSAIDS (Non-Steroidal Allergy Unknown Unknown Verified 08/02/21 12:48 Anti-Inflamma metoclopramide [From Reglan] AdvReac Mild Agitated Verified 08/02/21 12:48 prochlorperazine AdvReac Mild "My whole Verified 08/02/21 12:48 [From Compazine] body freaks out." silver AdvReac Mild dystonic Verified 08/04/21 07:00 IV iodine contrast Allergy Unknown Unknown Uncoded 07/09/21 16:06 EXAM Constitutional Vitals: Pulse BP Pulse Ox 96 H 104/71 100 08/14/21 18:18 08/14/21 18:18 08/14/21 18:18 General appearance: average body habitus, disheveled and no acute distress Head Head exam: Present atraumatic, normal inspection and normocephalic Expanded Head Exam Head exam: Absent hematoma or raccoon eyes Eye Eye exam: Present EOMI and normal appearance; Absent conjunctival injection ENT ENT exam: Present mucous membranes dry Neck Neck exam: Present full ROM and normal inspection Respiratory Respiratory exam: Present normal respiratory exam; Absent accessory muscle use, prolonged expiratory phase, respiratory distress or wheezes Cardiovascular Cardiovascular exam: Present normal rate and rhythm; Absent bradycardia, irregular rhythm, JVD or systolic murmur GI/Abdominal GI/Abdominal exam: Present normal bowel sounds and soft; Absent guarding or tenderness Rectal Rectal exam: Present deferred Extremities Exam Extremities exam: Present Foot pink and warm and neurovascular intact; Absent pedal edema Back Exam Back exam: Absent CVA tenderness (L) or CVA tenderness (R) Neurological Exam Neurological exam: Present alert, CN II-XII intact, motor sensory deficit and oriented X3 Skin Skin exam: Present dry; Absent diaphoretic or urticaria DATA Data Completed and Pending Labs: Labs from last 24 hours 08/14/21 08/14/21 08/14/21 16:19 16:19 11:51 WBC RBC Hgb Hct MCV MCH MCHC RDW Plt Count MPV Neut % (Auto) Lymph % (Auto) [place] % (Auto) Eos % (Auto) Baso % (Auto) Lymph # (Auto) [place] # (Auto) Eos # (Auto) Baso # (Auto) Absolute Neutrophils ABG Methemoglobin VBG pH VBG pCO2 VBG pO2 VBG HCO3 VBG Total CO2 VBG O2 Saturation VBG Base Excess VBG Lactic Acid 1.1 Carboxyhemoglobin Total Hemoglobin Sodium 137 Potassium 3.4 Chloride 78 L Carbon Dioxide 46 H* Anion Gap 13.0 BUN 37 H Creatinine 3.4 H GFR Calculation 22 Glucose 185 H Calcium 8.6 Magnesium 3.2 H Total Bilirubin AST ALT Alkaline Phosphatase Total Protein Albumin Globulin Albumin/Globulin Ratio Lipase Beta-Hydroxybutyrate 08/14/21 08/14/21 08/14/21 11:51 09:43 09:43 WBC RBC Hgb Hct MCV MCH MCHC RDW Plt Count MPV Neut % (Auto) Lymph % (Auto) [place] % (Auto) Eos % (Auto) Baso % (Auto) Lymph # (Auto) [place] # (Auto) Eos # (Auto) Baso # (Auto) Absolute Neutrophils ABG Methemoglobin 0 L VBG pH 7.52 H VBG pCO2 59.4 H VBG pO2 139.3 H VBG HCO3 47.9 H* VBG Total CO2 49.7 H* VBG O2 Saturation 94.5 H VBG Base Excess 22 H VBG Lactic Acid 2.2 H Carboxyhemoglobin 4.6 H Total Hemoglobin 13.3 L Sodium 134 Potassium 3.8 Chloride 69 L Carbon Dioxide 41 H* Anion Gap 24.0 H BUN 39 H Creatinine 3.5 H GFR Calculation 21 Glucose 439 H Calcium 9.6 Magnesium Total Bilirubin 0.4 AST 18 ALT 12 Alkaline Phosphatase 137 H Total Protein 8.3 Albumin 4.4 Globulin 3.9 H Albumin/Globulin Ratio 1.1 Lipase 16 Beta-Hydroxybutyrate 4.49 H 08/14/21 09:43 WBC 17.2 H RBC 5.22 Hgb 14.8 Hct 42.9 MCV 82.2 MCH 28.4 MCHC 34.5 RDW 13.4 Plt Count 435 MPV 11.2 H Neut % (Auto) 84.6 H Lymph % (Auto) 8.3 L [place] % (Auto) 6.7 Eos % (Auto) 0.1 Baso % (Auto) 0.3 Lymph # (Auto) 1.42 L [place] # (Auto) 1.15 H Eos # (Auto) 0.02 Baso # (Auto) 0.05 Absolute Neutrophils 14.55 H ABG Methemoglobin VBG pH VBG pCO2 VBG pO2 VBG HCO3 VBG Total CO2 VBG O2 Saturation VBG Base Excess VBG Lactic Acid Carboxyhemoglobin Total Hemoglobin Sodium Potassium Chloride Carbon Dioxide Anion Gap BUN Creatinine GFR Calculation Glucose Calcium Magnesium Total Bilirubin AST ALT Alkaline Phosphatase Total Protein Albumin Globulin Albumin/Globulin Ratio Lipase Beta-Hydroxybutyrate A/P Narrative A/P Narrative: DKA Type 1 DM uncontrolled with hyperglycemia -on insulin ggt, IV fluids -monitor glucose, monitor anion gap -transition to sq insulin once gap closes -allow for liquid diet now. Intractable Nausea and Vomiting Metabolic Alkalosis diabetic Gastroparesis -IV fluids -IV zofran and PPI for now -advance diet as tolerated -pt wishes for maalox, ROSALIO on CKD stage 3 -Pt has baseline renal function of 2.1 to 2.5, presented with c reat o 3.5 -ua is pending at this time -suspect due to volume depletion -IV fluids, monitor renal function. HTN HLD -resume home medications once verified DVT -enoxaparin GI -PPI Full code Time Spent With Patient Time: Total time spent is greater than 50% in coordination of care (as documented) at patient's floor/unit and/or counseling patient:
[2021-08-14] MEDS: MAG HYDROX/AL HYDROX/SIMETH 30 ML ORAL.SUSP PO PRN (20:23)
[2021-08-14 20:27] LABS: ABG Methemoglobin 0 % (0.4-1.5); Total Hemoglobin 13.4 gm/Dl (13.5-16.5); VBG Base Excess 24 (-2-2); VBG HCO3 49.3 mmol/L (24.0-28.0); VBG Oxygen Saturation 75.3 % (40.0-70.0); VBG PCO2 53.4 mmHg (41.0-51.0); VBG PH 7.58 U (7.32-7.42); VBG Total CO2 50.9 mmol/L (25.0-29.0)
[2021-08-14] MEDS ORDERED: POTASSIUM CHLORIDE 20 MEQ/10 ML VIAL IV ONE (20:42)
[2021-08-14 21:09] LABS: ALT/SGPT 10 U/L (<40); AST/SGOT 15 U/L (<40); Albumin/Globulin Ratio 1.2 (1.0-2.3); Alkaline Phosphatase 120 U/L (39-117); Bilirubin,Direct < 0.2 mg/dL (0-0.3); Bilirubin,Total 0.3 mg/dL (0.1-1.0); Blood Urea Nitrogen 35 mg/dL (6-20); Calcium 8.9 mg/dL (8.6-10.4); Carbon Dioxide 45 mmol/L (22-30); Chloride 79 mmol/L (96-108); Globulin 3.3 gm/dL (2.2-3.7); Glomerular Filtration Rate 22; Glucose 161 mg/dL (70-105); Lactate Dehydrogenase 184 U/L (135-225); Triglycerides 99 mg/dL (<150); Uric Acid 8.6 mg/dL (2.5-8.0)
[2021-08-14] MEDS: ONDANSETRON 4 MG/2 ML VIAL IV PRN (22:21)
[2021-08-14] MEDS: LORazepam 2 MG/ML VIAL IV PRN (22:21)
[2021-08-14] MEDS: 0.9 % SODIUM CHLORIDE 10 ML SYRINGE IV SCH (22:22)
[2021-08-14 22:44] LABS: Beta Hydroxybutyrate 0.67 mmol/L (<0.27)
[2021-08-14] MEDS ORDERED: DEXTROSE 50% 50 ML VIAL IV PRN (23:19)
[2021-08-14] MEDS ORDERED: DEXTROSE 31 GM ORAL.SUSP PO PRN (23:19)
[2021-08-14] MEDS: INSULIN GLARGINE, HUMAN 1 UNIT/0.01 ML SQ SCH (23:24)
[2021-08-14] MEDS: LACTATED RINGERS 1,000 ML IV SCH (23:25)
[2021-08-14] MEDS ORDERED: INSULIN GLARGINE, HUMAN 1 UNIT/0.01 ML SQ ONE (23:29)
[2021-08-15] MEDS: MAG HYDROX/AL HYDROX/SIMETH 30 ML ORAL.SUSP PO PRN (01:58)
[2021-08-15] MEDS: LORazepam 2 MG/ML VIAL IV PRN ×3 (02:25→22:54)
[2021-08-15] MEDS: ONDANSETRON 4 MG/2 ML VIAL IV PRN ×4 (02:25→22:33)
[2021-08-15 03:39] LABS: Appearance,Urine Clear (Clear); Bilirubin,Urine Negative (Negative); Color,Urine Yellow; Culture Indicated,Urine No; Ketones,Urine Trace mg/dL (Negative); Leukocyte Esterase,Urine Negative /uL (Negative); Mucus,Urine FEW /hpf; Nitrate,Urine Negative (Negative); PH,Urine >= 9.0 (5.0-9.0); Urine Blood Negative ery/mcL (Negative); Urine Hyaline Cast 44 /lph (0-2); Urine RBC 0 /hpf (0-3); Urine Squamous Epithelial Cell < 1 /hpf (0-4); Urine WBC < 1 /hpf (0-4); Urobilinogen,Urine Normal
--- NOTE | 2021-08-15 04:39 | XRay Report ---
CLINICAL INFORMATION: Hypoxia COMPARISON: 06/05/2021 TECHNIQUE: Portable FINDINGS: Right subclavian Port-A-Cath is stable satisfactory position. The heart size, mediastinum and pulmonary vessels are unremarkable. The lungs are clear. There are no effusions. The bones and soft tissues are within normal limits. IMPRESSION: Normal chest. Interpreted and Authenticated by: Demetrius Smart 08/15/21
[2021-08-15] MEDS: PANTOPRAZOLE 40 MG VIAL IV SCH ×2 (07:28→16:12)
[2021-08-15] MEDS ORDERED: INSULIN LISPRO 1 UNIT/0.01 ML UNIT SQ SCH (07:30)
[2021-08-15] MEDS: 0.9 % SODIUM CHLORIDE 10 ML SYRINGE IV SCH ×3 (07:57→20:50)
[2021-08-15] MEDS: LACTATED RINGERS 1,000 ML IV SCH (08:01)
[2021-08-15 08:15] LABS: Basophils # (Auto) 0.02 K/mcL (0.00-0.30); Basophils % (Auto) 0.1 % (0.0-2.0); Eosinophils # (Auto) 0.03 K/mcL (0.00-0.70); Eosinophils % (Auto) 0.2 % (0.0-7.0); Hematocrit 38.4 % (40.1-51.0); Hemoglobin 12.5 g/dL (13.7-17.5); Lymphocytes # (Auto) 2.18 K/mcL (1.50-4.80); Lymphocytes % (Auto) 14.3 % (15.5-49.0); Mean Cell Volume 88.3 fL (80.0-100.0); Mean Corpuscular HGB Conc 32.6 g/dL (31.0-36.0); Mean Platelet Volume 11.9 fL (7.4-10.4); Monocytes # (Auto) 1.47 K/mcL (0.10-0.90); Monocytes % (Auto) 9.6 % (1.0-12.0); Neutrophils % (Auto) 75.8 % (38.0-78.0); Platelet Count 309 K/mcL (140-440); RBC 4.35 M/mcL (4.63-6.08); Red Cell Distribution Width 13.6 % (11.5-14.5); WBC 15.3 K/mcL (4.5-11.0)
[2021-08-15 08:49] LABS: ALT/SGPT 11 U/L (<40); AST/SGOT 19 U/L (<40); Albumin 3.9 gm/dL (3.2-5.2); Albumin/Globulin Ratio 1.3 (1.0-2.3); Alkaline Phosphatase 162 U/L (39-117); Bilirubin,Direct < 0.2 mg/dL (0-0.3); Bilirubin,Total 0.4 mg/dL (0.1-1.0); Blood Urea Nitrogen 32 mg/dL (6-20); Calcium 8.2 mg/dL (8.6-10.4); Carbon Dioxide 43 mmol/L (22-30); Chloride 79 mmol/L (96-108); Globulin 3.1 gm/dL (2.2-3.7); Glomerular Filtration Rate 22; Glucose 339 mg/dL (70-105); Lactate Dehydrogenase 546 U/L (135-225); Phosphorous 3.8 mg/dL (2.5-4.5); Triglycerides 85 mg/dL (<150); Uric Acid 8.4 mg/dL (2.5-8.0)
[2021-08-15] MEDS ORDERED: ENOXAPARIN 40 MG/0.4 ML SYRINGE SQ SCH (09:00)
--- NOTE | 2021-08-15 09:11 | Internal Med Progress Note ---
SUBJECTIVE Subjective Patient information: Note initiated : 08/15/21 at 9:10 am Service Date, if different from initiated Date: [] Patient: Mauri Levine 35 y/o M admitted on 08/14/21 for "Gastroparesis". Chief Complaint: [] Interval history: Chief complaint: Nausea and Vomting History of present illness: Mr. Levine 35 yr male with history of type 1 diabetes presents to the emergency room today for evaluation of nausea and vomiting going on for the last 3 days. The patient noted the symptoms started all of a sudden, has progressively gotten worse, he denies any blood in the vomit denies any black tarry stools. He has been diagnosed with diabetic gastroparesis, and has a vagal nerve implant in place. Given the fact that patient has not been able to tolerate p.o. for the last 3 days he presented to the hospital. The patient denies any fever or chills, denies any burning micturition, denies any acute abdominal pain. The patient notes that he has a insulin pump, and that the needle had dislodged a day prior to come to the ED. On arrival to the Emergency room the patient was noted to be Hypoxic requiring 2 L of oxygen to maintain oxygen saturation more than 90%, he was mildly tachycardic, and clinically appeared dry. Lab work was significant for high anion gap metabolic acidosis, metabolic alkalosis, patient had elevated beta hydroxybutyrate. The patient was started on DKA protocol in the emergency room, IV fluids and IV insulin was given. Patient will be admitted to the hospital for further management 08/15/21 Patient seen examined, in bed , comfortable, hemodynamically stable, oxygen drops below 90 when sleeping, but x ray neg for any infiltrate, Labs reviewed, wbc trending down, suspect reactive Nausea/vomiting improved, pt willing to try solid foods Anion gap closed overnight, transitinoed to sq insulin Pertinent ROS: Denies headache, dizziness Denies chest pain, palpitations Denies cough or shortness of breath Denies abdominal pain, nausea or vomiting. Constitutional Vitals: Vital Signs Temp Pulse Resp BP Pulse Ox 98.6 F 80 27 H 117/70 100 08/15/21 08:01 08/15/21 08:01 08/15/21 08:01 08/15/21 08:01 08/15/21 08:01 Period Temp Pulse Resp BP Sys/Menard Pulse Ox Last 24 Hr 97.9 F-98.6 F 77-131 8-27 83-168/61-110 91-100 Intake and Output 08/14/21 08/15/21 08/15/21 21:59 05:59 13:59 Intake Total 656 754 4268 Output Total 100 450 Balance 879 148 8961 Weight 68.719 kg Intake & Output: Intake & Output 08/14/21 08/15/21 08/15/21 21:59 05:59 13:59 Intake Total 635 189 7998 Output Total 100 450 Balance 255 926 3984 Weight 68.719 kg Intake: IV 847 102 4881 Sodium Chloride 0.9% 1,000 ml @ 85 150 mls/hr IV .Q6H40M [facility] Rx#: [id number] Dextrose 5%-1/2Ns IV Solution 1 572 428 ,000 ml @ 100 mls/hr IV .Q10H [facility] Rx#:[id number] HumuLIN R 50 UNIT In Sodium 52 14 Chloride 0.9% 99.5 ml @ 6 UNIT/ HR 12 mls/hr IV DUR [facility] Rx#: [id number] Lactated Ringers 1,000 ml @ 150 1000 mls/hr IV .Q6H40M [facility] Rx#: [id number] Potassium Chloride 20 Meq In 260 Dextrose 5% in Water 250 ml @ 130 mls/hr IV ONCE ONE Rx#: [id number] Potassium Chloride 40 Meq In 520 Dextrose 5% in Water 500 ml @ 130 mls/hr IV ONCE ONE Rx#: [id number] Output: Void Amount 450 Emesis 100 Other: Urine Appearance Clear Urine Color Bright Yellow Additional findings Additional findings: Physicial exam Constitutional; Afebrile, cooperative, alert, not in distress. Eyes- No icterus, , No periorbital swelling Ears- Ext ear normal, hearing normal to conversation. Neck- Midline trachea, supple Respiratory system: Air Entry equal on both sides, No crackles or wheezing, no rhonchi. CVS- Rate rhythm regular, S1,S2 heard, no gallop, no rub. Abdomen- Soft nontender abdomen, no organomegaly, no tenderness, no guarding or rigidity, FACILITY MANAGER- AOOx3, moving all extremities, no gross focal deficit noted. OBJ DATA Labs CBC & Chem 7: 08/15/21 05:00 08/15/21 07:05 Labs: Abnormal Lab Results 08/15/21 08/15/21 08/14/21 07:05 05:00 20:02 WBC 15.3 H RBC 4.35 L Hgb 12.5 L Hct 38.4 L MPV 11.9 H Neut % (Auto) Lymph % (Auto) 14.3 L Lymph # (Auto) [place] # (Auto) 1.47 H Absolute Neutrophils 11.59 H ABG Methemoglobin 0 L VBG pH 7.58 H VBG pCO2 53.4 H VBG pO2 41.0 H VBG HCO3 49.3 H* VBG Total CO2 50.9 H* VBG O2 Saturation 75.3 H VBG Base Excess 24 H VBG Lactic Acid Carboxyhemoglobin 4.2 H Total Hemoglobin 13.4 L Potassium Chloride 79 L Carbon Dioxide 43 H* Anion Gap BUN 32 H Creatinine 3.4 H Glucose 339 H Uric Acid 8.4 H Calcium 8.2 L Magnesium 3.0 H Alkaline Phosphatase 162 H Lactate Dehydrogenase 546 H Globulin Beta-Hydroxybutyrate Urine Protein Urine Glucose (UA) Urine Ketones Hyaline Casts Urine Mucus 08/14/21 08/14/21 08/14/21 20:02 16:19 11:51 WBC RBC Hgb Hct MPV Neut % (Auto) Lymph % (Auto) Lymph # (Auto) [place] # (Auto) Absolute Neutrophils ABG Methemoglobin VBG pH VBG pCO2 VBG pO2 VBG HCO3 VBG Total CO2 VBG O2 Saturation VBG Base Excess VBG Lactic Acid Carboxyhemoglobin Total Hemoglobin Potassium 3.0 L Chloride 79 L 78 L Carbon Dioxide 45 H* 46 H* Anion Gap BUN 35 H 37 H Creatinine 3.4 H 3.4 H Glucose 161 H 185 H Uric Acid 8.6 H Calcium Magnesium 3.2 H 3.2 H Alkaline Phosphatase 120 H Lactate Dehydrogenase Globulin Beta-Hydroxybutyrate 0.67 H Urine Protein Urine Glucose (UA) Urine Ketones Hyaline Casts Urine Mucus 08/14/21 08/14/21 08/14/21 11:51 09:43 09:43 WBC RBC Hgb Hct MPV Neut % (Auto) Lymph % (Auto) Lymph # (Auto) [place] # (Auto) Absolute Neutrophils ABG Methemoglobin 0 L VBG pH 7.52 H VBG pCO2 59.4 H VBG pO2 139.3 H VBG HCO3 47.9 H* VBG Total CO2 49.7 H* VBG O2 Saturation 94.5 H VBG Base Excess 22 H VBG Lactic Acid 2.2 H Carboxyhemoglobin 4.6 H Total Hemoglobin 13.3 L Potassium Chloride 69 L Carbon Dioxide 41 H* Anion Gap 24.0 H BUN 39 H Creatinine 3.5 H Glucose 439 H Uric Acid Calcium Magnesium Alkaline Phosphatase 137 H Lactate Dehydrogenase Globulin 3.9 H Beta-Hydroxybutyrate 4.49 H Urine Protein Urine Glucose (UA) Urine Ketones Hyaline Casts Urine Mucus 08/14/21 08/14/21 09:43 09:34 WBC 17.2 H RBC Hgb Hct MPV 11.2 H Neut % (Auto) 84.6 H Lymph % (Auto) 8.3 L Lymph # (Auto) 1.42 L [place] # (Auto) 1.15 H Absolute Neutrophils 14.55 H ABG Methemoglobin VBG pH VBG pCO2 VBG pO2 VBG HCO3 VBG Total CO2 VBG O2 Saturation VBG Base Excess VBG Lactic Acid Carboxyhemoglobin Total Hemoglobin Potassium Chloride Carbon Dioxide Anion Gap BUN Creatinine Glucose Uric Acid Calcium Magnesium Alkaline Phosphatase Lactate Dehydrogenase Globulin Beta-Hydroxybutyrate Urine Protein 100 mg/dl A Urine Glucose (UA) 250 mg/dl A Urine Ketones Trace A Hyaline Casts 44 H Urine Mucus Few A Meds: Medications Acetaminophen (Acetaminophen 325 Mg Tablet) 650 mg PO Q4-6HP PRN; Protocol PRN Reason: Per Pain Protocol/Fever > 101 Al Hydrox/Mg Hydrox/Simethicone (Mag Hydrox/Al Hydrox/Simeth 30 Ml Oral.Susp) 30 ml PO Q4-6HP PRN PRN Reason: Dyspepsia Last Admin: 08/15/21 01:58 Dose: 30 ml Documented by: Dextrose (Dextrose 50% 50 Ml Vial) 0 ml IV UD PRN PRN Reason: Hypoglycemia Diagnostic Test (Pha) (Accu-Chek 1 Each Strip) 1 each FS ACHS [facility] Last Admin: 08/15/21 07:20 Dose: 1 each Documented by: Diagnostic Test (Pha) (Accu-Chek 1 Each Strip) 1 each FS ACHS [facility] Enoxaparin Sodium (Enoxaparin 40 Mg/0.4 Ml Syringe) 40 mg SQ DAILY [facility] Glucose (Dextrose 31 Gm Oral.Susp) 15 gm PO PRN PRN PRN Reason: Hypoglycemia Sodium Chloride (Sodium Chloride 0.9%) 1,000 mls @ 150 mls/hr IV .Q6H40M [facility] Insulin Glargine (Insulin Glargine, Human 1 Unit/0.01 Ml) 12 unit SQ BID [facility] Insulin Human Lispro (Insulin Lispro 1 Unit/0.01 Ml Unit) 0 unit SQ ACHS [facility]; Protocol Lorazepam (Lorazepam 2 Mg/Ml Vial) 0.5 mg IV Q2HP PRN PRN Reason: ANXIETY/SEDATION Last Admin: 08/15/21 02:25 Dose: 0.5 mg Documented by: Magnesium Hydroxide (Magnesium Hydroxide 30 Ml Oral.Susp) 30 ml PO DAILYP PRN PRN Reason: Constipation Naloxone HCl (Naloxone Hcl 0.4 Mg/Ml Vial) 0.1 mg IV Q2MIN PRN PRN Reason: Opiate Reversal Nitroglycerin (Nitroglycerin 0.4 Mg Tab.Subl) 0.4 mg SL Q5M PRN PRN Reason: Chest Pain Ondansetron HCl (Ondansetron 4 Mg/2 Ml Vial) 4 mg IV Q4-6HP PRN; Protocol PRN Reason: Nausea And Vomiting Last Admin: 08/15/21 02:25 Dose: 4 mg Documented by: Pantoprazole Sodium (Pantoprazole 40 Mg Vial) 40 mg IV BIDAC [facility] Last Admin: 08/15/21 07:28 Dose: 40 mg Documented by: Promethazine HCl (Promethazine 25 Mg/Ml Vial) 12.5 mg IV Q4-6HP PRN; Protocol PRN Reason: Nausea And Vomiting Last Admin: 08/15/21 07:31 Dose: 12.5 mg Documented by: Senna (Sennosides 1 Tablet) 1 tab PO HSP PRN PRN Reason: Constipation Sodium Biphosphate/Sodium Phosphate (Fleets Adult Enema) 1 dose WA Q3-4DAYS PRN PRN Reason: Constipation Sodium Chloride (0.9 % Sodium Chloride 10 Ml Syringe) 10 ml IV Q8 [facility] Last Admin: 08/15/21 07:57 Dose: Not Given Documented by: ABG Interpretation ABG results: 08/14/21 08/14/21 11:51 20:02 ABG Methemoglobin 0 L 0 L VBG pH 7.52 H 7.58 H VBG pCO2 59.4 H 53.4 H VBG pO2 139.3 H 41.0 H VBG HCO3 47.9 H* 49.3 H* VBG Total CO2 49.7 H* 50.9 H* VBG O2 Saturation 94.5 H 75.3 H VBG Base Excess 22 H 24 H A/P Narrative A/P Narrative: DKA Type 1 DM uncontrolled with hyperglycemia -dka resolved, no on sq insuiln =titrate sq insulin to 12 bid lantus and moderate dose ssi -resume home pump once glucose stable -monitor glucose, -advanced diet. Intractable Nausea and Vomiting Metabolic Alkalosis diabetic Gastroparesis -IV fluids, NS for now -IV zofran and PPI for now -advance diet as tolerated -pt wishes for maalox, ROSALIO on CKD stage 3 -Pt has baseline renal function of 2.1 to 2.5, presented with creat of 3.4 now -ua neg for infection, -suspect due to volume depletion -IV fluids, continue to monitor renal functino, get renal usg HTN HLD -resume home medications once verified DVT -enoxaparin GI -PPI Full code Time Spent With Patient Time: Total time spent is greater than 50% in coordination of care (as documented) at patient's floor/unit and/or counseling patient: Total time spent with greater than 50% in coordination of care (as documented) at patient's floor/unit and/or counseling patient:: Greater than 35 minutes
[2021-08-15] MEDS: 0.9 % SODIUM CHLORIDE 1,000 ML IV SCH ×3 (09:19→22:55)
[2021-08-15] MEDS: INSULIN GLARGINE, HUMAN 1 UNIT/0.01 ML SQ SCH ×3 (10:45→22:24)
[2021-08-15] MEDS ORDERED: KETAMINE 50 MG/ML NAS PRN (11:00)
[2021-08-15] MEDS ORDERED: CALCIUM CARBONATE 500 MG TAB.CHEW CHEWED PRN (11:02)
[2021-08-15] MEDS: INSULIN LISPRO 1 UNIT/0.01 ML UNIT SQ SCH ×4 (11:51→22:25)
[2021-08-15] MEDS: CARVEDILOL 6.25 MG TABLET PO SCH (16:54)
[2021-08-15] MEDS ORDERED: ATORVASTATIN 40 MG TABLET PO SCH (21:00)
[2021-08-15] MEDS ORDERED: CYANOCOBALAMIN (VITAMIN B-12) 1,000 MCG TABLET PO SCH (21:00)
[2021-08-16] MEDS: 0.9 % SODIUM CHLORIDE 10 ML SYRINGE IV SCH ×2 (04:36→13:09)
[2021-08-16] MEDS: ONDANSETRON 4 MG/2 ML VIAL IV PRN (05:34)
[2021-08-16] MEDS: 0.9 % SODIUM CHLORIDE 1,000 ML IV SCH ×2 (05:35→11:41)
[2021-08-16 07:19] LABS: Basophils # (Auto) 0.03 K/mcL (0.00-0.30); Basophils % (Auto) 0.4 % (0.0-2.0); Eosinophils # (Auto) 0.06 K/mcL (0.00-0.70); Eosinophils % (Auto) 0.9 % (0.0-7.0); Hematocrit 30.9 % (40.1-51.0); Hemoglobin 10.1 g/dL (13.7-17.5); Lymphocytes # (Auto) 1.98 K/mcL (1.50-4.80); Lymphocytes % (Auto) 29.3 % (15.5-49.0); Mean Cell Volume 89.3 fL (80.0-100.0); Mean Corpuscular HGB Conc 32.7 g/dL (31.0-36.0); Mean Platelet Volume 11.2 fL (7.4-10.4); Monocytes # (Auto) 0.59 K/mcL (0.10-0.90); Monocytes % (Auto) 8.7 % (1.0-12.0); Neutrophils % (Auto) 60.7 % (38.0-78.0); Platelet Count 234 K/mcL (140-440); RBC 3.46 M/mcL (4.63-6.08); Red Cell Distribution Width 13.4 % (11.5-14.5); WBC 6.8 K/mcL (4.5-11.0)
[2021-08-16 07:47] LABS: ALT/SGPT 10 U/L (<40); AST/SGOT 18 U/L (<40); Albumin/Globulin Ratio 1.3 (1.0-2.3); Alkaline Phosphatase 78 U/L (39-117); Bilirubin,Direct < 0.2 mg/dL (0-0.3); Bilirubin,Total 0.3 mg/dL (0.1-1.0); Blood Urea Nitrogen 24 mg/dL (6-20); Calcium 7.7 mg/dL (8.6-10.4); Carbon Dioxide 33 mmol/L (22-30); Chloride 96 mmol/L (96-108); Globulin 2.4 gm/dL (2.2-3.7); Glomerular Filtration Rate 28; Glucose 84 mg/dL (70-105); Lactate Dehydrogenase 184 U/L (135-225); Phosphorous 2.7 mg/dL (2.5-4.5); Triglycerides 90 mg/dL (<150); Uric Acid 6.2 mg/dL (2.5-8.0)
[2021-08-16] MEDS ORDERED: ENOXAPARIN 30 MG/0.3 ML SYRINGE SQ SCH (09:00)
[2021-08-16] MEDS ORDERED: FLUoxetine HCL 20 MG CAPSULE PO SCH (09:00)
[2021-08-16] MEDS: INSULIN LISPRO 1 UNIT/0.01 ML UNIT SQ SCH ×2 (09:25→11:59)
[2021-08-16] MEDS: PANTOPRAZOLE 40 MG VIAL IV SCH (09:34)
[2021-08-16] MEDS: CARVEDILOL 6.25 MG TABLET PO SCH (09:34)
[2021-08-16] MEDS: INSULIN GLARGINE, HUMAN 1 UNIT/0.01 ML SQ SCH (09:35)
--- NOTE | 2021-08-16 10:02 | Ultrasound Report ---
CLINICAL INFORMATION: Chronic kidney disease COMPARISON: None. FINDINGS: Both kidneys are normal and symmetric in size, position and configuration: The right is 10.7 x 5 cm and the left is 10.8 x 5 cm. Renal echotexture is mildly elevated compatible with medical renal disease. No focal renal lesions or evidence of hydronephrosis. Arterial blood flow is normal and symmetric to both kidneys on color Doppler Urinary bladder is distended: 800 cc. Patient unable to void. No focal bladder lesions IMPRESSION: Hyperechoic kidneys compatible medical renal disease. Prostate is normal size-volume 28 cc. Moderate urinary bladder distention Interpreted and Authenticated by: Demetrius Smart 08/16/21
--- NOTE | 2021-08-16 10:14 | Discharge Summary ---
Discharge Provider Provider Patient information: Note initiated : 08/16/21 at 10:11 am Service Date, if different from initiated Date: [] Patient: Mauri Levine 35 y/o M admitted on 08/14/21 for "Gastroparesis". Chief Complaint: [] Date of admission: 08/14/21 20:14 Discharge date: 08/16/21 Primary care physician: Flo Peña MD Admitting clinician: Luana King Attending physician on admission: Luana King Consults: 08/14/21 Consult to Physician [CONS] Stat Comment: Consulting Provider: Luana King Reason For Exam: Physician to Consult Attending physician on discharge: Luana King Discharging clinician: Luana King Discharge Meds Discharge Medications Home Medications atorvastatin 40 mg tablet 40 mg PO HS 02/13/19 [History Confirmed 08/14/21 Last Taken 06/02/21 09:00] aluminum-mag hydroxide-simethicone 400 mg-400 mg-40 mg/5 mL oral susp (Mylanta Maximum Strength) 10 ml PO TID PRN 04/04/19 [History Confirmed 08/14/21 Last Taken 06/04/21 09:00] calcium carbonate 300 mg (750 mg) chewable tablet (Tums) 600 mg PO ONCE tab 02/11/21 [History Confirmed 08/14/21 Last Taken 05/28/21] cholecalciferol (vitamin D3) 50 mcg (2,000 unit) capsule 50 mcg PO QDAY 02/11/21 [History Confirmed 08/14/21 Last Taken 05/18/21] cyanocobalamin (vitamin B-12) 1,000 mcg capsule 1,000 mcg PO QHS cap 02/11/21 [History Confirmed 08/14/21 Last Taken 05/18/21] melatonin 10 mg tablet 10 mg PO HS PRN 02/11/21 [History Confirmed 08/14/21 Last Taken 05/31/21 21:00] calcium cit 250 mg-ergocalciferol (vit D2) 2.5 mcg (100 unit) tablet (Farshad- Citrate) 1 tab PO QHS tab 03/26/21 [History Confirmed 08/14/21 Last Taken 05/31/21 09:00] clonidine 0.2 mg/24 hr weekly transdermal patch 1 patch TRANSDERMAL QWEEK #4 ea 03/26/21 [Rx Confirmed 08/14/21 Last Taken 06/02/21 09:00] insulin aspart U-100 100 unit/mL subcutaneous solution (Novolog U-100 Insulin aspart) See Rx Instructions .ROUTE .COMPLEX 03/26/21 [History Confirmed 08/14/21 Last Taken 06/04/21 18:00] carvedilol 6.25 mg tablet 6.25 mg PO BID #180 tab 06/19/21 [Rx Confirmed 08/14/21 Last Taken Unknown] lisinopril 10 mg tablet 10 mg PO QDAY #90 tab 07/01/21 [Rx Confirmed 08/14/21 Last Taken Unknown] zofran 4 mg IV Q4H PRN #2 dose 07/01/21 [Rx Confirmed 08/14/21 Last Taken Unknown] ketamine 50mg/ml nasal spray 1 - 3 spray INTRANASAL PRN 07/03/21 [History Confirmed 08/14/21 Last Taken Unknown] fluoxetine 10 mg capsule See Rx Instructions .ROUTE .COMPLEX #60 cap 07/08/21 [Rx Confirmed 08/14/21 Last Taken Unknown] fluvoxamine 100 mg tablet 100 mg PO QHS 08/03/21 [History Confirmed 08/14/21 Last Taken Unknown] furosemide 20 mg tablet 20 mg PO QAM PRN 08/03/21 [History Confirmed 08/14/21 Last Taken Unknown] lorazepam 1 mg tablet 1 - 2 mg PO DAILYP PRN 08/03/21 [History Confirmed 08/14/21 Last Taken Unknown] pantoprazole 40 mg tablet,delayed release 40 mg PO BID #60 tab 08/16/21 [Rx Last Taken Unknown] COURSE Hospital Course Hospital course: Mr. Levine 35 yr male with history of type 1 diabetes presented to the emergency room today for evaluation of nausea and vomiting going on for the last 3 days. The patient noted the symptoms started all of a sudden, has progressively gotten worse, he denies any blood in the vomit denies any black tarry stools. He has been diagnosed with diabetic gastroparesis, and has a vagal nerve implant in place. Given the fact that patient has not been able to tolerate p.o. for the last 3 days he presented to the hospital. The patient denies any fever or chills, denies any burning micturition, denies any acute abdominal pain. The patient notes that he has a insulin pump, and that the needle had dislodged a day prior to come to the ED. On arrival to the Emergency room the pateint was noted to be Hypoxic requiring 2 L of oxygen to maintain oxygen saturation more than 90%, he was mildly tachycardic, and clinically appeared dry. Lab work was significant for high anion gap metabolic acidosis, metabolic alkalosis, patient had elevated beta hydroxybutyrate. The patient was started on DKA protocol in the emergency room, IV fluids and IV insulin was given. Patient responded to the treatment well, his anion gap had closed, patient had significant metabolic alkalosis which also improved with fluids patient had ROSALIO on CKD, creat was 3.4, which improvdd to 2.8 at discharge, Renal usg did not show any e/o obstruction. patient has been educated at length need for compliance and keep self well hydra avila patient has been started on pantoprazole to help with GI symptoms Pt to follow up with PCP in 1 week. At the time of discharge patient is tolerating po well, ambulatory by self. Discharge diagnosis: dka Secondary discharge diagnosis: Severe metabolic alkalsosis ROSALIO on ckd Type 1 DM Diabetic Gastroparesis Reason for admission: Nausea and vomiting Procedures: Renal USG Time Spent with Patient Time attestation: Total time spent providing and/or coordinating discharge services: Time spent: Greater than 30 minutes EXAM Constitutional Vitals: Temp Pulse Resp BP Pulse Ox 98.1 F 76 20 122/77 97 08/16/21 08:00 08/15/21 23:43 08/16/21 08:00 08/16/21 08:00 08/16/21 08:00 Additional findings Additional findings: Physcial Exam Constitutional; Afebrile, cooperative, alert, not in distress. Eyes- No icterus, , No periorbital swelling Ears- Ext ear normal, hearing normal to conversation. Neck- Midline trachea, supple Respiratory system: Air Entry equal on both sides, No crackles or wheezing, no rhonchi. CVS- Rate rhythm regular, S1,S2 heard, no gallop, no rub. Abdomen- Soft nontender abdomen, no organomegaly, no tenderness, no guarding or rigidity, LAUNCH CHECK OUT- AOOx3, moving all extremities, no gross focal deficit noted. Discharge Data Data Completed and Pending Labs on day of discharge: Labs from last 24 hours 08/16/21 08/16/21 04:21 04:21 WBC 6.8 RBC 3.46 L Hgb 10.1 L Hct 30.9 L MCV 89.3 MCH 29.2 MCHC 32.7 RDW 13.4 Plt Count 234 MPV 11.2 H Neut % (Auto) 60.7 Lymph % (Auto) 29.3 [place] % (Auto) 8.7 Eos % (Auto) 0.9 Baso % (Auto) 0.4 Lymph # (Auto) 1.98 [place] # (Auto) 0.59 Eos # (Auto) 0.06 Baso # (Auto) 0.03 Absolute Neutrophils 4.10 Sodium 135 Potassium 3.5 Chloride 96 Carbon Dioxide 33 H Anion Gap 6.0 L BUN 24 H Creatinine 2.8 H GFR Calculation 28 Glucose 84 Uric Acid 6.2 Calcium 7.7 L Phosphorus 2.7 Magnesium 2.5 Total Bilirubin 0.3 Direct Bilirubin < 0.2 GGT 11 AST 18 ALT 10 Alkaline Phosphatase 78 Lactate Dehydrogenase 184 Total Protein 5.4 L Albumin 3.0 L Globulin 2.4 Albumin/Globulin Ratio 1.3 Triglycerides 90 Discharge Plan Patient/Caregiver Discharge Instructions Activity: increase activity as tolerated Diet: Renal/Consistent Carbs Prescriptions: New pantoprazole 40 mg tablet,delayed release (DR/EC) 40 mg PO BID Qty: 60 0RF Continued fluoxetine 10 mg capsule See Rx Instructions .Route .COMPLEX Qty: 60 1RF Rx Instructions: TAKE ONE CAPSULE BY MOUTH DAILY FOR ONE WEEK, THEN TAKE TWO CAPSULES BY MOUTH DAILY carvedilol 6.25 mg tablet 6.25 mg PO BID Qty: 180 0RF Rx Instructions: must administer with a meal/food zofran 4 mg IV Q4H PRN (Reason: nausea and vomiting) Qty: 2 0RF Rx Instructions: IV Zofran 4 mg q. 4 hours as needed for 2 doses lisinopril 10 mg tablet 10 mg PO QDAY Qty: 90 1RF Rx Instructions: 1 tab QD noon, if no N/V or dehydration Farshad-Citrate 250 mg-2.5 mcg (100 unit) tablet 1 tab PO QHS 0RF clonidine 0.2 mg/24 hr patch weekly 1 patch transdermal QWEEK Qty: 4 2RF ketamine 50mg/ml nasal spray 50 mg 1 - 3 spray intranasal PRN 0RF cyanocobalamin (vitamin B-12) 1,000 mcg capsule 1,000 mcg PO QHS 0RF cholecalciferol (vitamin D3) 50 mcg (2,000 unit) capsule 50 mcg PO QDAY 0RF melatonin 10 mg tablet 10 mg PO HS PRN (Reason: Insomnia) 0RF calcium carbonate [Tums] 300 mg (750 mg) tablet,chewable 600 mg PO ONCE 0RF alum-mag hydroxide-simeth [Mylanta Maximum Strength] 400-400-40 mg/5 mL suspension 10 ml PO TID PRN (Reason: Nausea) 0RF insulin aspart U-100 [Novolog U-100 Insulin aspart] 100 unit/mL solution See Rx Instructions .ROUTE .COMPLEX 0RF Rx Instructions: via insulin pump. 5836-7873 basal rate 1.2, 8031-7348 basal rate 1.1, 0700- 1900 basal rate 1.0, 0538-1669 basal rate 1.2 atorvastatin 40 MG tablet 40 mg PO HS 0RF fluvoxamine 100 mg Tablet 100 mg PO QHS 0RF furosemide 20 mg Tablet 20 mg PO QAM PRN (Reason: Edema/hypertension) 0RF lorazepam 1 mg tablet 1 - 2 mg PO DAILYP PRN (Reason: nausea and vomiting) 0RF Follow Up Plan Follow up with: Flo Peña MD [Primary Care Provider] - Patient Disposition: Home, Self-Care Care Plan Goals: I have started you on pantoprazole 40mg twice dailiy, take this medication 30 mins before a meal. Thsi medication is prescribed for gastritis. Plan of Treatment: Keep your self well hydrated Take pantoprazole 40mg twice daily, 30 mins before a thiago Keep your insulin pump on, No other changes made to your treatment regime. Follow up with your PCP in 1 week. Prognosis: Fair Rehab Potential: Fair I certify that the patient requires SNF services: No Overall status at discharge: patient is back to baseline Discharge Orders: Discharge Order (Routine); Ordered 08/16/21 Ordered By: Luana King Discharge Comment: Follow up with PCP in 1 week
[2021-08-16] MEDS ORDERED: CYANOCOBALAMIN (VITAMIN B-12) 500 MCG TABLET PO SCH (21:00)
== END 2021-08-16 14:00 | disposition home or self-care (01) | DRG 919 ==
LOC: ED 09:19 → INTOOBSV 20:14 → ICU 20:14 → MEDSUR 08-15 10:54
PROVIDERS: ADMIT Internal Medicine; ATTEND Internal Medicine

== ENCOUNTER 2021-08-20 15:48 | Inpatient (IN) ==
[2021-08-20] MEDS ORDERED: 0.9 % SODIUM CHLORIDE 1,000 ML IV ONE ×3 (16:01→19:38)
[2021-08-20] MEDS ORDERED: PROMETHAZINE 25 MG/ML VIAL IV ONE (16:24)
--- NOTE | 2021-08-20 16:48 | Emergency Department Note ---
HPI General Chief complaint: Blood Sugar Problem Stated complaint: DKA Time Seen by Provider: 08/20/21 16:01 Source: patient Mode of arrival: wheelchair Limitations: no limitations History of Present Illness HPI Narrative: Narrative: 35-year-old male with a history of diabetic gastroparesis, uncontrolled type 1 diabetes, hypertension, hyperlipidemia, cyclic vomiting syndrome, CKD, Port-A-Cath placement due to poor vasculature history of DKA with recent admission for DKA presents the ER with uncontrollable nausea and vomiting for the last 2 days. Is been nonbilious nonbloody. He denies fever, chills, body a ches. He denies chest pain or chest pressure. He does have history of heart murmur. He states is usually calm down with fluids and promethazine. He has no other complaints at this time. Related Data Home Medications Medication Instructions Recorded Confirmed atorvastatin 40 mg tablet 40 mg PO HS 02/13/19 08/19/21 aluminum-mag hydroxide-simethicone 10 ml PO TID PRN 04/04/19 08/19/21 400 mg-400 mg-40 mg/5 mL oral susp (Mylanta Maximum Strength) calcium carbonate 300 mg (750 mg) 600 mg PO ONCE tab 02/11/21 08/19/21 chewable tablet (Tums) cholecalciferol (vitamin D3) 50 50 mcg PO QDAY 02/11/21 08/19/21 mcg (2,000 unit) capsule cyanocobalamin (vitamin B-12) 1,000 mcg PO QHS cap 02/11/21 08/19/21 1,000 mcg capsule melatonin 10 mg tablet 10 mg PO HS PRN 02/11/21 08/19/21 calcium cit 250 mg-ergocalciferol 1 tab PO QHS tab 03/26/21 08/19/21 (vit D2) 2.5 mcg (100 unit) tablet (Farshad-Citrate) insulin aspart U-100 100 unit/mL See Rx Instructions .ROUTE .COMPLEX 03/26/21 08/19/21 subcutaneous solution (Novolog U-100 Insulin aspart) ketamine 50mg/ml nasal spray 1 - 3 spray INTRANASAL PRN 07/03/21 08/19/21 fluvoxamine 100 mg tablet 100 mg PO QHS 08/03/21 08/19/21 furosemide 20 mg tablet 20 mg PO QAM PRN 08/03/21 08/19/21 Previous Rx's Medication Instructions Recorded clonidine 0.2 mg/24 hr weekly 1 patch TRANSDERMAL QWEEK #4 ea 03/26/21 transdermal patch carvedilol 6.25 mg tablet 6.25 mg PO BID #180 tab 06/19/21 lisinopril 10 mg tablet 10 mg PO QDAY #90 tab 07/01/21 fluoxetine 10 mg capsule See Rx Instructions .ROUTE 07/08/21 .COMPLEX #60 cap pantoprazole 40 mg tablet,delayed 40 mg PO BID #60 tab 08/16/21 release lorazepam 1 mg tablet 1 mg PO QDAY #30 tab 08/19/21 normal saline 1 l IV ONCE #1 ea 08/20/21 zofran 4 mg IV Q4H PRN #2 dose 08/20/21 Allergies Allergy/AdvReac Type Severity Reaction Status Date / Time NSAIDS (Non-Steroidal Allergy Unknown Unknown Verified 08/20/21 15:55 Anti-Inflamma metoclopramide [From Reglan] AdvReac Mild Agitated Verified 08/20/21 15:55 prochlorperazine AdvReac Mild "My whole Verified 08/20/21 15:55 [From Compazine] body freaks out." silver AdvReac Mild dystonic Verified 08/20/21 15:55 IV iodine contrast Allergy Unknown Unknown Uncoded 08/19/21 15:43 Review of Systems ROS ROS Narrative: Narrative: All systems ED: reviewed and negative except as stated. [facility] Narrative Patient History Narrative: Narrative: Medical/Surgical/Family History All Active Problems (Updated 08/20/21 @ 19:47 by Flynn Rivero PA-C) Testosterone deficiency (Chronic) Nausea and vomiting (Chronic) GERD (gastroesophageal reflux disease) (Chronic) Other hammer toe(s) (acquired), left foot (Chronic) Hypertension, essential (Chronic) Hyperlipidemia (Chronic) History of neuroleptic malignant syndrome (Chronic) Dehydration (Acute) Drug-induced nausea and vomiting (Acute) Uncontrolled type 1 diabetes mellitus with diabetic nephropathy, with long-term current use of insulin (Chronic) Cyclic vomiting syndrome (Chronic) Type 1 diabetes mellitus with stage 3 chronic kidney disease and hypertension (Chronic) Marijuana use, continuous (Chronic) CKD (chronic kidney disease) (Acute) Nephrotic range proteinuria (Chronic) Controlled type 1 diabetes mellitus with chronic kidney disease (Chronic) Port-A-Cath in place (Acute) Diabetic gastroparesis associated with type 1 diabetes mellitus (Chronic) Diabetic neuropathy associated with type 1 diabetes mellitus (Chronic) Diabetic retinopathy associated with type 1 diabetes mellitus (Chronic) Anxiety (Chronic) Back pain (Chronic) Physical deconditioning (Chronic) Malnutrition (Chronic) Acute dehydration (Acute) Acute hypokalemia (Acute) QT prolongation (Acute) Dehydration (Acute) No-show for appointment (Acute) Intractable cyclical vomiting with nausea (Acute) Diabetic gastroparesis (Acute) ROSALIO (acute kidney injury) (Acute) Hyperglycemia (Acute) Dehydration (Acute) Major depressive disorder, recurrent (Acute) Generalized anxiety disorder (Acute) Trauma and stressor-related disorder (Acute) Diabetic gastroparesis (Acute) Nausea & vomiting (Acute) Acute dehydration (Acute) Ketosis (Acute) Uncontrolled diabetes mellitus (Acute) DKA (diabetic ketoacidosis) (Acute) Hyperosmolar hyperglycemic state (HHS) (Acute) Medical History Abdominal pain, epigastric Anxiety Back pain Chronic ulcer of left foot Coffee ground emesis Diabetes mellitus type I Age 12, With foot ulcer Diabetic gastroparesis associated with type 1 diabetes mellitus Diabetic neuropathy associated with type 1 diabetes mellitus Diabetic peripheral neuropathy Diabetic retinopathy associated with type 1 diabetes mellitus DKA, type 1 Esophageal candidiasis Gastroenteritis Gastroparesis due to DM GERD (gastroesophageal reflux disease) Hallux valgus (acquired), left foot History of neuroleptic malignant syndrome To compazine (prochlorperazine). Tolerates promethazine without issue Hyperlipidemia Hypertension, essential labile due to unpredictable Rx absorption with gastroparesis and propensity for dehydration Holds lisinopril if persistent vomiting occurs Hypokalemia Connie-[place] tear Malnutrition Marijuana use, continuous Nausea and vomiting Non-pressure chronic ulcer of other part of left foot limited to breakdown of skin Other hammer toe(s) (acquired), left foot Peripheral autonomic neuropathy due to DM Physical deconditioning Sepsis Tardive dyskinesia due to metoclopramide (Reglan) Testosterone deficiency Surgical History History of toe surgery left hallux Family History Mother Atrial fibrillation Essential hypertension Sister Malignant neoplasm of female breast Maternal Grandfather Malignant neoplasm of colon Recorded 11/12/10 Father Essential hypertension Other Adopted DKA, type 1 Social History Smoking Status: Never smoker Alcohol Intake Frequency: former alcohol drinker Substance Use: marijuana (Occasional) Exam Narrative Narrative: Narrative: Gen: Patient is actively vomiting when I enter the room with nonbilious nonbloody clear emesis. Eyes: PERRL, no conjunctival injection , and symmetrical lids. Sclerae non icteric HENMT: Normocephalic Atraumatic head, external nose and ears. Moist MM. CVS: +S1/S2, pansystolic murmur heard at the right upper sternal border. Radial pulses 2+ and equal bilat. No swelling RESP: Unlabored respiratory effort . Clear to auscultation bilaterally (CTAB). No noted wheezes rales or ronchi. GI: Nontender/Nondistended (NTND), No focal tenderness soft and completely nontender in all quadrants MSK: Extremities w/o deformity or ttp. No cyanosis or clubbing. Skin: Patient is pale, warm, Dry . No rashes or lesions . Cap refill less than 2. Psych: Awake, Alert, & Oriented (AAO) x3. Appropriate mood and affect . General Limitations: no limitations Course Vital Signs Vital signs: Vital Signs Temperature 97.0 F 08/20/21 15:49 Pulse Rate 88 08/20/21 15:49 Respiratory Rate 18 08/20/21 15:49 Blood Pressure 70/40 08/20/21 15:49 Pulse Oximetry (%) 93 08/20/21 15:49 Temperature 97.0 F 08/20/21 15:49 Pulse Rate 88 08/20/21 15:49 Respiratory Rate 17 08/20/21 19:31 Blood Pressure 70/41 08/20/21 19:31 Pulse Oximetry (%) 93 08/20/21 15:49 MDM MDM Narrative Medical decision making narrative: Narrative: Patient's blood glucose read high when he got here. He will be evaluated with CBC, CMP, lipase, venous blood gas, lacate, beta hydroxybutyrate and a smmlc-od-golc urine. Patient given promethazine for his nausea and vomiting as well as a liter of fluid. Venous blood gas does not show any acidosis. Patient is alkalotic with normal bicarb decrease CO2 CBC: White count with slight left shift and uptrending anemia CMP: Glucose of 1162, chloride less than 60, sodium corrected is normal at 128, potassium normal, Acute Kidney Injury Gap of 28. hypocalcemia @ 7.6, hypermag BHB: 12.16 [place] urine: not provided Lipase: 135 Elevated Lactate: Blood Cultures: pending Patient still had nausea and vomiting after Phenergan and was requesting Zofran. I requested an EKG as he has a history of QT prolongation. His QTC was 521 so we will withhold Zofran. EKG: Normal sinus rhythm rate of 87 bpm with QT prolongation, hyperacute T waves probably suggestive of hyperkalemia from his uncontrolled diabetes. Normal axis, biatrial enlargement normal MD interval Pt given 2g magnesium due to prolonged QTC Pt still wretching: another liter of fluid will be ordered. Patient is in HHS he is not acidotic but he has extremely high blood sugar at over 1100. He has no abdominal pain and states this feels like his classic gastroparesis from nausea and vomiting. His potassium is normal. He is being repleted with magnesium right now concern with . He will be started on insulin drip at 0.10 units/kg/h. Hospitalist will be consulted. Dr. Basilio with will be consulted for admission at this time. Dr. Basilio agreed to assume care for the patient at this time and will be down to evaluate him. Dr Bowman was consulted for patient management throughout his work-up and evaluation in the emergency room. Lab Data Result diagrams: 08/20/21 16:09 08/20/21 16:09 Labs: Lab Results 08/20/21 08/20/21 08/20/21 Range/Units 16:09 16:09 18:16 WBC 15.0 H (4.5-11.0) K/mcL RBC 4.23 L (4.63-6.08) M/mcL Hgb 12.3 L (13.7-17.5) g/dL Hct 40.8 (40.1-51.0) % MCV 96.5 (80.0-100.0) fL MCH 29.1 (26.0-34.0) pg MCHC 30.1 L (31.0-36.0) g/dL RDW 12.9 (11.5-14.5) % Plt Count 239 (140-440) K/mcL MPV 13.9 H (7.4-10.4) fL Neut % (Auto) 85.9 H (38.0-78.0) % Lymph % (Auto) 6.3 L (15.5-49.0) % [place] % (Auto) 7.7 (1.0-12.0) % Eos % (Auto) 0 (0.0-7.0) % Baso % (Auto) 0.1 (0.0-2.0) % Lymph # (Auto) 0.94 L (1.50-4.80) K/mcL [place] # (Auto) 1.16 H (0.10-0.90) K/mcL Eos # (Auto) 0 (0.00-0.70) K/mcL Baso # (Auto) 0.02 (0.00-0.30) K/mcL Absolute Neutrophils 12.90 H (1.80-8.00) K/mcL ABG Methemoglobin (0.4-1.5) % VBG pH (7.32-7.42) U VBG pCO2 VBG pO2 (25.0-40.0) mmHg VBG HCO3 VBG Total CO2 VBG O2 Saturation (40.0-70.0) % VBG Base Excess Carboxyhemoglobin (0.0-1.5) % THgb Total Hemoglobin (13.5-16.5) gm/Dl Sodium 111 L* (133-145) mmol/L Potassium 5.0 (3.3-5.1) mmol/L Chloride < 60 L (96-108) mmol/L Carbon Dioxide 23 (22-30) mmol/L Anion Gap 28.0 H (8.0-16.0) BUN 69 H (6-20) mg/dL Creatinine 4.9 H (0.7-1.2) mg/dL GFR Calculation 14 Glucose 1162 H* (70-105) mg/dL Calcium 7.6 L (8.6-10.4) mg/dL Magnesium (1.6-2.5) mg/dL Total Bilirubin 0.5 (0.1-1.0) mg/dL AST 12 (<40) U/L ALT 13 (<40) U/L Alkaline Phosphatase 126 H (39-117) U/L Total Protein 6.7 (5.9-8.4) gm/dL Albumin 3.7 (3.2-5.2) gm/dL Globulin 3.0 (2.2-3.7) gm/dL Albumin/Globulin Ratio 1.2 (1.0-2.3) Lipase 135 H (7-60) U/L Beta-Hydroxybutyrate 12.16 H (<0.27) mmol/L 08/20/21 08/20/21 Range/Units 18:30 18:30 WBC (4.5-11.0) K/mcL RBC (4.63-6.08) M/mcL Hgb (13.7-17.5) g/dL Hct (40.1-51.0) % MCV (80.0-100.0) fL MCH (26.0-34.0) pg MCHC (31.0-36.0) g/dL RDW (11.5-14.5) % Plt Count (140-440) K/mcL MPV (7.4-10.4) fL Neut % (Auto) (38.0-78.0) % Lymph % (Auto) (15.5-49.0) % [place] % (Auto) (1.0-12.0) % Eos % (Auto) (0.0-7.0) % Baso % (Auto) (0.0-2.0) % Lymph # (Auto) (1.50-4.80) K/mcL [place] # (Auto) (0.10-0.90) K/mcL Eos # (Auto) (0.00-0.70) K/mcL Baso # (Auto) (0.00-0.30) K/mcL Absolute Neutrophils (1.80-8.00) K/mcL ABG Methemoglobin 0.3 L (0.4-1.5) % VBG pH 7.48 H (7.32-7.42) U VBG pCO2 TNP VBG pO2 78.6 H (25.0-40.0) mmHg VBG HCO3 TNP VBG Total CO2 TNP VBG O2 Saturation 89.0 H (40.0-70.0) % VBG Base Excess TNP Carboxyhemoglobin 6.9 H (0.0-1.5) % THgb Total Hemoglobin 11.9 L (13.5-16.5) gm/Dl Sodium (133-145) mmol/L Potassium (3.3-5.1) mmol/L Chloride (96-108) mmol/L Carbon Dioxide (22-30) mmol/L Anion Gap (8.0-16.0) BUN (6-20) mg/dL Creatinine (0.7-1.2) mg/dL GFR Calculation Glucose (70-105) mg/dL Calcium (8.6-10.4) mg/dL Magnesium 3.4 H (1.6-2.5) mg/dL Total Bilirubin (0.1-1.0) mg/dL AST (<40) U/L ALT (<40) U/L Alkaline Phosphatase (39-117) U/L Total Protein (5.9-8.4) gm/dL Albumin (3.2-5.2) gm/dL Globulin (2.2-3.7) gm/dL Albumin/Globulin Ratio (1.0-2.3) Lipase (7-60) U/L Beta-Hydroxybutyrate (<0.27) mmol/L CC TIME Critical Care Time Critical Care Time: Yes Total Critical Care Time: 35 Attestation: Total critical care time of 35min including performance of history and physical exam, review of results, re-examinations, time spent documenting, blood bank order control clerk, review of old records, discussions with patient and family, discussions with management consultant(s), discussion with admitting physician, completion of admiss ion/transfer paperwork. This does not include time for any separately documented procedures. Discharge Plan Patient/Caregiver Discharge Instructions Pt seen by WATCH DIAL MAKER/PA only: Yes Clinical Impression: Hyperosmolar hyperglycemic state (HHS) Patient Disposition: Xfer As Inpt ([facility]) Follow up with: Flo Peña MD [Primary Care Provider] - Prescriptions: No Action lorazepam 1 mg tablet 1 mg PO QDAY Qty: 30 1RF fluoxetine 10 mg capsule See Rx Instructions .Route .COMPLEX Qty: 60 1RF Rx Instructions: TAKE ONE CAPSULE BY MOUTH DAILY FOR ONE WEEK, THEN TAKE TWO CAPSULES BY MOUTH DAILY carvedilol 6.25 mg tablet 6.25 mg PO BID Qty: 180 0RF Rx Instructions: must administer with a meal/food lisinopril 10 mg tablet 10 mg PO QDAY Qty: 90 1RF Rx Instructions: 1 tab QD noon, if no N/V or dehydration normal saline 1 l IV ONCE Qty: 1 0RF Rx Instructions: Standing order for one year, IV normal saline 1 L wide open. zofran 4 mg IV Q4H PRN (Reason: nausea and vomiting) Qty: 2 0RF Rx Instructions: IV Zofran 4 mg q. 4 hours as needed for 2 doses Farshad-Citrate 250 mg-2.5 mcg (100 unit) tablet 1 tab PO QHS 0RF clonidine 0.2 mg/24 hr patch weekly 1 patch transdermal QWEEK Qty: 4 2RF ketamine 50mg/ml nasal spray 50 mg 1 - 3 spray intranasal PRN 0RF cyanocobalamin (vitamin B-12) 1,000 mcg capsule 1,000 mcg PO QHS 0RF cholecalciferol (vitamin D3) 50 mcg (2,000 unit) capsule 50 mcg PO QDAY 0RF melatonin 10 mg tablet 10 mg PO HS PRN (Reason: Insomnia) 0RF calcium carbonate [Tums] 300 mg (750 mg) tablet,chewable 600 mg PO ONCE 0RF alum-mag hydroxide-simeth [Mylanta Maximum Strength] 400-400-40 mg/5 mL suspension 10 ml PO TID PRN (Reason: Nausea) 0RF insulin aspart U-100 [Novolog U-100 Insulin aspart] 100 unit/mL solution See Rx Instructions .ROUTE .COMPLEX 0RF Rx Instructions: via insulin pump. 9846-6244 basal rate 1.2, 2149-9480 basal rate 1.1, 0700- 1900 basal rate 1.0, 3652-3831 basal rate 1.2 atorvastatin 40 MG tablet 40 mg PO HS 0RF fluvoxamine 100 mg Tablet 100 mg PO QHS 0RF furosemide 20 mg Tablet 20 mg PO QAM PRN (Reason: Edema/hypertension) 0RF pantoprazole 40 mg tablet,delayed release (DR/EC) 40 mg PO BID Qty: 60 0RF
[2021-08-20] MEDS ORDERED: MAGNESIUM SULFATE 8.12 MEQ/2 ML VIAL IV STA (17:37)
[2021-08-20 17:58] LABS: ALT/SGPT 13 U/L (<40); AST/SGOT 12 U/L (<40); Albumin 3.7 gm/dL (3.2-5.2); Albumin/Globulin Ratio 1.2 (1.0-2.3); Alkaline Phosphatase 126 U/L (39-117); Bilirubin,Total 0.5 mg/dL (0.1-1.0); Blood Urea Nitrogen 69 mg/dL (6-20); Calcium 7.6 mg/dL (8.6-10.4); Carbon Dioxide 23 mmol/L (22-30); Chloride < 60 mmol/L (96-108)
[2021-08-20] MEDS ORDERED: MAGNESIUM SULFATE 2 GM/50 ML BAG IV ONE (17:59)
[2021-08-20] MEDS ORDERED: INSULIN REGULAR IV SCH ×2 (18:30→18:32)
[2021-08-20] MEDS ORDERED: SODIUM CHLORIDE 0.9% IV SCH ×2 (18:30→18:32)
[2021-08-20] MEDS ORDERED: HUMAN IV SCH ×2 (18:30→18:32)
[2021-08-20 18:47] LABS: ABG Methemoglobin 0.3 % (0.4-1.5); Total Hemoglobin 11.9 gm/Dl (13.5-16.5); VBG PH 7.48 U (7.32-7.42); VBG PO2 78.6 mmHg (25.0-40.0)
[2021-08-20 18:55] LABS: Basophils # (Auto) 0.02 K/mcL (0.00-0.30); Basophils % (Auto) 0.1 % (0.0-2.0); Eosinophils # (Auto) 0 K/mcL (0.00-0.70); Eosinophils % (Auto) 0 % (0.0-7.0); Hematocrit 40.8 % (40.1-51.0); Hemoglobin 12.3 g/dL (13.7-17.5); Lymphocytes # (Auto) 0.94 K/mcL (1.50-4.80); Lymphocytes % (Auto) 6.3 % (15.5-49.0); Mean Cell Volume 96.5 fL (80.0-100.0); Mean Corpuscular HGB Conc 30.1 g/dL (31.0-36.0); Mean Platelet Volume 13.9 fL (7.4-10.4); Monocytes # (Auto) 1.16 K/mcL (0.10-0.90); Monocytes % (Auto) 7.7 % (1.0-12.0); Neutrophils % (Auto) 85.9 % (38.0-78.0); Platelet Count 239 K/mcL (140-440); RBC 4.23 M/mcL (4.63-6.08); Red Cell Distribution Width 12.9 % (11.5-14.5)
[2021-08-20] MEDS ORDERED: INSULIN REGULAR, HUMAN 50 UNIT in 0.9 % SODIUM CHLORIDE 99.5 ML IV STA (19:20)
[2021-08-20] MEDS ORDERED: INSULIN REGULAR, HUMAN 1 UNIT/0.01 ML UNIT IV ONE ×2 (19:24→23:45)
--- NOTE | 2021-08-20 20:29 | Internal Med History&Physical ---
HPI History of Present Illness Patient information: Note initiated : 08/20/21 at 8:12 pm Service Date, if different from initiated Date: [] Patient: Mauri Levine a 35 y/o M admitted on for DKA. Chief Complaint: [] History of present illness: Mr. Levine is a 35 year old M Presents to the hospital with identical presentation to recent admissions (emphasis on plural). Patient ran out of insulin for his pump several days ago and says he did not think to replace it. He has a history of diabetes type 1 on insulin pump and gastroparesis Patient said he was planning to get assistance to make sure he keeps on track with his insulin regimen. Blood glucose in the ED was about 1162, his creatinine 4.9 Among his other lab normalities. Given IV insulin and started on a drip in the ED. Reactive leukocytosis. No acidosis on VBG or chemistry. Review of Systems: Pertinent positives as above denies headache/fever/chillschest or abdominal pain/cough/dyspnea/diarrhea. Remaining 10 point review of system reviewed negative PFSH PFSH All Active Problems (Updated 08/20/21 @ 19:47 by Flynn Rivero PA-C) Testosterone deficiency (Chronic) Nausea and vomiting (Chronic) GERD (gastroesophageal reflux disease) (Chronic) Other hammer toe(s) (acquired), left foot (Chronic) Hypertension, essential (Chronic) Hyperlipidemia (Chronic) History of neuroleptic malignant syndrome (Chronic) Dehydration (Acute) Drug-induced nausea and vomiting (Acute) Uncontrolled type 1 diabetes mellitus with diabetic nephropathy, with long-term current use of insulin (Chronic) Cyclic vomiting syndrome (Chronic) Type 1 diabetes mellitus with stage 3 chronic kidney disease and hypertension (Chronic) Marijuana use, continuous (Chronic) CKD (chronic kidney disease) (Acute) Nephrotic range proteinuria (Chronic) Controlled type 1 diabetes mellitus with chronic kidney disease (Chronic) Port-A-Cath in place (Acute) Diabetic gastroparesis associated with type 1 diabetes mellitus (Chronic) Diabetic neuropathy associated with type 1 diabetes mellitus (Chronic) Diabetic retinopathy associated with type 1 diabetes mellitus (Chronic) Anxiety (Chronic) Back pain (Chronic) Physical deconditioning (Chronic) Malnutrition (Chronic) Acute dehydration (Acute) Acute hypokalemia (Acute) QT prolongation (Acute) Dehydration (Acute) No-show for appointment (Acute) Intractable cyclical vomiting with nausea (Acute) Diabetic gastroparesis (Acute) ROSALIO (acute kidney injury) (Acute) Hyperglycemia (Acute) Dehydration (Acute) Major depressive disorder, recurrent (Acute) Generalized anxiety disorder (Acute) Trauma and stressor-related disorder (Acute) Diabetic gastroparesis (Acute) Nausea & vomiting (Acute) Acute dehydration (Acute) Ketosis (Acute) Uncontrolled diabetes mellitus (Acute) DKA (diabetic ketoacidosis) (Acute) Hyperosmolar hyperglycemic state (HHS) (Acute) Medical History Abdominal pain, epigastric Anxiety Back pain Chronic ulcer of left foot Coffee ground emesis Diabetes mellitus type I Age 12, With foot ulcer Diabetic gastroparesis associated with type 1 diabetes mellitus Diabetic neuropathy associated with type 1 diabetes mellitus Diabetic peripheral neuropathy Diabetic retinopathy associated with type 1 diabetes mellitus DKA, type 1 Esophageal candidiasis Gastroenteritis Gastroparesis due to DM GERD (gastroesophageal reflux disease) Hallux valgus (acquired), left foot History of neuroleptic malignant syndrome To compazine (prochlorperazine). Tolerates promethazine without issue Hyperlipidemia Hypertension, essential labile due to unpredictable Rx absorption with gastroparesis and propensity for dehydration Holds lisinopril if persistent vomiting occurs Hypokalemia Connie-[place]rne tear Malnutrition Marijuana use, continuous Nausea and vomiting Non-pressure chronic ulcer of other part of left foot limited to breakdown of skin Other hammer toe(s) (acquired), left foot Peripheral autonomic neuropathy due to DM Physical deconditioning Sepsis Tardive dyskinesia due to metoclopramide (Reglan) Testosterone deficiency Surgical History History of toe surgery left hallux Family History Mother Atrial fibrillation Essential hypertension Sister Malignant neoplasm of female breast Maternal Grandfather Malignant neoplasm of colon Recorded 11/12/10 Father Essential hypertension Other Adopted DKA, type 1 Social History adopted: Yes household members: family housing: other details: 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 marital status: single occupational status: disabled occupation: On disability since 2016 physical activity: walking smoking status: Former smoker quit date: 02/12/11 alcohol intake frequency: former alcohol drinker substance use type: marijuana (Occasional) seatbelt use: always MEDS/ALLERGIES Home Medications and Allergies Home Medications Medication Instructions Recorded Confirmed Type atorvastatin 40 mg tablet 40 mg PO HS 02/13/19 08/19/21 History aluminum-mag hydroxide-simethicone 10 ml PO TID PRN 04/04/19 08/19/21 History 400 mg-400 mg-40 mg/5 mL oral susp (Mylanta Maximum Strength) calcium carbonate 300 mg (750 mg) 600 mg PO ONCE tab 02/11/21 08/19/21 History chewable tablet (Tums) cholecalciferol (vitamin D3) 50 50 mcg PO QDAY 02/11/21 08/19/21 History mcg (2,000 unit) capsule cyanocobalamin (vitamin B-12) 1,000 mcg PO QHS cap 02/11/21 08/19/21 History 1,000 mcg capsule melatonin 10 mg tablet 10 mg PO HS PRN 02/11/21 08/19/21 History calcium cit 250 mg-ergocalciferol 1 tab PO QHS tab 03/26/21 08/19/21 History (vit D2) 2.5 mcg (100 unit) tablet (Farshad-Citrate) clonidine 0.2 mg/24 hr weekly 1 patch TRANSDERMAL QWEEK #4 ea 03/26/21 08/19/21 Rx transdermal patch insulin aspart U-100 100 unit/mL See Rx Instructions .ROUTE .COMPLEX 03/26/21 08/19/21 History subcutaneous solution (Novolog U-100 Insulin aspart) carvedilol 6.25 mg tablet 6.25 mg PO BID #180 tab 06/19/21 08/19/21 Rx lisinopril 10 mg tablet 10 mg PO QDAY #90 tab 07/01/21 08/19/21 Rx ketamine 50mg/ml nasal spray 1 - 3 spray INTRANASAL PRN 07/03/21 08/19/21 History fluoxetine 10 mg capsule See Rx Instructions .ROUTE 07/08/21 08/19/21 Rx .COMPLEX #60 cap fluvoxamine 100 mg tablet 100 mg PO QHS 08/03/21 08/19/21 History furosemide 20 mg tablet 20 mg PO QAM PRN 08/03/21 08/19/21 History pantoprazole 40 mg tablet,delayed 40 mg PO BID #60 tab 08/16/21 08/19/21 Rx release lorazepam 1 mg tablet 1 mg PO QDAY #30 tab 08/19/21 08/19/21 Rx normal saline 1 l IV ONCE #1 ea 08/20/21 Rx zofran 4 mg IV Q4H PRN #2 dose 08/20/21 Rx Allergies Allergy/AdvReac Type Severity Reaction Status Date / Time NSAIDS (Non-Steroidal Allergy Unknown Unknown Verified 08/20/21 15:55 Anti-Inflamma metoclopramide [From Reglan] AdvReac Mild Agitated Verified 08/20/21 15:55 prochlorperazine AdvReac Mild "My whole Verified 08/20/21 15:55 [From Compazine] body freaks out." silver AdvReac Mild dystonic Verified 08/20/21 15:55 IV iodine contrast Allergy Unknown Unknown Uncoded 08/19/21 15:43 EXAM Constitutional Vitals: Temp Pulse Resp BP Pulse Ox 97.0 F 88 17 70/41 93 08/20/21 15:49 08/20/21 15:49 08/20/21 19:31 08/20/21 19:31 08/20/21 15:49 Exam: General: Awake, No acute Distress Eyes/N/T: EOMI, PERRL, dry MM Head/Neck: neck supple, normocephalic atraumatic CV: Mildly tacky but regular, 2/6 SM, normal s1/s2 Pulm: Clear b/l, no wheezing/rhonchi/rales Abd: soft, nontender, +BS x4 Ext: no clubbing/cyanosis/edema Neuro: Lethargic, no focal deficits, moves all extremities, CN 2-12 grossly intact, symmetrical strength b/l upper/lower, sensations intact b/l upper/lower Skin: warm/dry DATA Data Completed and Pending Labs: Labs from last 24 hours 08/20/21 08/20/21 08/20/21 18:30 18:30 18:19 WBC RBC Hgb Hct MCV MCH MCHC RDW Plt Count MPV Neut % (Auto) Lymph % (Auto) [place] % (Auto) Eos % (Auto) Baso % (Auto) Lymph # (Auto) [place] # (Auto) Eos # (Auto) Baso # (Auto) Absolute Neutrophils ABG Methemoglobin 0.3 L VBG pH 7.48 H VBG pCO2 TNP VBG pO2 78.6 H VBG HCO3 TNP VBG Total CO2 TNP VBG O2 Saturation 89.0 H VBG Base Excess TNP Carboxyhemoglobin 6.9 H Total Hemoglobin 11.9 L Sodium Pending Potassium Pending Chloride Pending Carbon Dioxide Pending Anion Gap Pending BUN Pending Creatinine Pending GFR Calculation Pending Glucose Pending Uric Acid Pending Calcium Pending Phosphorus Pending Magnesium 3.4 H Pending Total Bilirubin Pending Direct Bilirubin Pending GGT Pending AST Pending ALT Pending Alkaline Phosphatase Pending Lactate Dehydrogenase Pending Total Protein Pending Albumin Pending Globulin Pending Albumin/Globulin Ratio Pending Triglycerides Pending Lipase Beta-Hydroxybutyrate 08/20/21 08/20/21 08/20/21 18:16 16:09 16:09 WBC 15.0 H RBC 4.23 L Hgb 12.3 L Hct 40.8 MCV 96.5 MCH 29.1 MCHC 30.1 L RDW 12.9 Plt Count 239 MPV 13.9 H Neut % (Auto) 85.9 H Lymph % (Auto) 6.3 L [place] % (Auto) 7.7 Eos % (Auto) 0 Baso % (Auto) 0.1 Lymph # (Auto) 0.94 L [place] # (Auto) 1.16 H Eos # (Auto) 0 Baso # (Auto) 0.02 Absolute Neutrophils 12.90 H ABG Methemoglobin VBG pH VBG pCO2 VBG pO2 VBG HCO3 VBG Total CO2 VBG O2 Saturation VBG Base Excess Carboxyhemoglobin Total Hemoglobin Sodium 111 L* Potassium 5.0 Chloride < 60 L Carbon Dioxide 23 Anion Gap 28.0 H BUN 69 H Creatinine 4.9 H GFR Calculation 14 Glucose 1162 H* Uric Acid Calcium 7.6 L Phosphorus Magnesium Total Bilirubin 0.5 Direct Bilirubin GGT AST 12 ALT 13 Alkaline Phosphatase 126 H Lactate Dehydrogenase Total Protein 6.7 Albumin 3.7 Globulin 3.0 Albumin/Globulin Ratio 1.2 Triglycerides Lipase 135 H Beta-Hydroxybutyrate 12.16 H A/P Narrative A/P Narrative: A: *HHS-DKA overlap: *DMI with Gastroparesis/Neuropathy: -A1c 8.9 (June) *Hypotension from Severe Hypovolemia: *Corrected Sodium on admit 128: *ROSALIO on CKD IIIb-IV: Follows with Dr. Mills *Anemia, chronic: *HTN: On coreg/clonidine/lisinopril *Anxiety/depression: med list both Fluoxetine and Fluvoxamine, will have to clarify *Long QT Syndrome: noted on EKG's since 2019. Pt is on SSRI *GERD: P: -Insulin gtt -IV fluids -Monitor electrolytes and replace -clear liquids if patient is tolerant and advance diet as able to gastroparesis diet (low fat, soluble fiber) -Antiemetics that won't prolong QT (Scopolamine,Benzodiazepines, Dexamethasone) -cont clonidine/BB, restart ACEI once renal fxn at baseline, IV prn BP meds -home med reconciliation, clarify if actually taking two SSRI's -ppx: Lovenox/H2 Time Spent With Patient Time: Total time spent is greater than 50% in coordination of care (as documented) at patient's floor/unit and/or counseling patient:
[2021-08-20 20:47] LABS: ALT/SGPT 12 U/L (<40); AST/SGOT 10 U/L (<40); Albumin 3.9 gm/dL (3.2-5.2); Albumin/Globulin Ratio 1.6 (1.0-2.3); Alkaline Phosphatase 124 U/L (39-117); Bilirubin,Direct < 0.2 mg/dL (0-0.3); Bilirubin,Total 0.5 mg/dL (0.1-1.0); Blood Urea Nitrogen 65 mg/dL (6-20); Calcium 7.6 mg/dL (8.6-10.4); Carbon Dioxide 23 mmol/L (22-30); Chloride < 60 mmol/L (96-108); Globulin 2.4 gm/dL (2.2-3.7); Glomerular Filtration Rate 15; Glucose 1656 mg/dL (70-105); Lactate Dehydrogenase 266 U/L (135-225); Phosphorous 11.4 mg/dL (2.5-4.5); Triglycerides 179 mg/dL (<150); Uric Acid 8.9 mg/dL (2.5-8.0)
[2021-08-20] MEDS ORDERED: ACETAMINOPHEN 325 MG TABLET PO PRN (21:32)
[2021-08-20] MEDS ORDERED: POTASSIUM CHLORIDE 40 MEQ in DEXTROSE 5% IN WATER 500 ML IV PRN (21:32)
[2021-08-20] MEDS ORDERED: POTASSIUM CHLORIDE 20 MEQ TABLET PO PRN ×2 (21:32)
[2021-08-20] MEDS ORDERED: LABETALOL 5 MG/ML ML IV PRN (21:32)
[2021-08-20] MEDS ORDERED: MAGNESIUM SULFATE 2 GM/50 ML BAG IV PRN (21:32)
[2021-08-20] MEDS: 0.9 % SODIUM CHLORIDE 10 ML SYRINGE IV SCH (21:45)
[2021-08-20] MEDS: 0.9 % SODIUM CHLORIDE 1,000 ML IV SCH (22:15)
[2021-08-20] MEDS: FAMOTIDINE/PF 20 MG/2 ML VIAL IV SCH (22:52)
[2021-08-20] MEDS: LORazepam 2 MG/ML VIAL IV PRN (22:58)
[2021-08-20 23:03] LABS: ABG Methemoglobin 0.3 % (0.4-1.5); Total Hemoglobin 11.1 gm/Dl (13.5-16.5); VBG Base Excess 8 (-2-3); VBG Oxygen Saturation 91.8 % (40.0-70.0); VBG PCO2 52.2 mmHg (41.0-51.0); VBG PH 7.43 U (7.32-7.42); VBG PO2 107.4 mmHg (25.0-40.0); VBG Total CO2 35.6 mmol/L (25.0-29.0)
[2021-08-20] MEDS: SCOPOLAMINE 1 PATCH PATCH TOPICAL SCH (23:04)
[2021-08-20] MEDS ORDERED: INSULIN REGULAR, HUMAN 1 UNIT/0.01 ML UNIT ONE ×2 (23:14→23:56)
[2021-08-20 23:42] LABS: Glucose,Random 1237 mg/dL (70-105)
[2021-08-21] MEDS: 0.9 % SODIUM CHLORIDE 250 ML IV SCH ×3 (00:04→18:48)
[2021-08-21] MEDS: INSULIN REGULAR, HUMAN 50 UNIT in 0.9 % SODIUM CHLORIDE 99.5 ML IV SCH ×2 (00:49→12:26)
[2021-08-21] MEDS: LORazepam 2 MG/ML VIAL IV PRN ×6 (01:10→23:10)
[2021-08-21 01:36] LABS: Glucose,Random 1029 mg/dL (70-105)
[2021-08-21 01:38] LABS: Glucose,Random 1414 mg/dL (70-105)
[2021-08-21] MEDS: 0.9 % SODIUM CHLORIDE 1,000 ML IV SCH ×3 (02:35→10:36)
[2021-08-21 03:13] LABS: ABG Methemoglobin 0.3 % (0.4-1.5); Total Hemoglobin 10.5 gm/Dl (13.5-16.5); VBG Base Excess 19 (-2-3); VBG HCO3 44.5 mmol/L (24.0-28.0); VBG Oxygen Saturation 90.1 % (40.0-70.0); VBG PCO2 54.1 mmHg (41.0-51.0); VBG PH 7.53 U (7.32-7.42); VBG PO2 147.4 mmHg (25.0-40.0); VBG Total CO2 46.2 mmol/L (25.0-29.0)
[2021-08-21 03:49] LABS: Glucose,Random 832 mg/dL (70-105)
[2021-08-21 05:50] LABS: Glomerular Filtration Rate 14; Glucose 1686 mg/dL (70-105)
[2021-08-21 06:30] LABS: Beta Hydroxybutyrate 15.22 mmol/L (<0.27)
[2021-08-21 06:40] LABS: POC Calcium, Ionized 0.76 mmEq/L (1.16-1.32); POC Creatinine 4.2 mg/dL (0.6-1.2); POC Potassium 3.8 mEql/L (3.3-5.1)
[2021-08-21] MEDS: NOREPINEPHRINE BITARTRATE 8 MG in 0.9 % SODIUM CHLORIDE 242 ML IV SCH ×2 (06:48→11:43)
[2021-08-21] MEDS: 0.9 % SODIUM CHLORIDE 10 ML SYRINGE IV SCH ×3 (06:52→20:45)
--- NOTE | 2021-08-21 07:33 | Internal Med Progress Note ---
SUBJECTIVE Subjective Patient information: Note initiated : 08/21/21 at 7:30 am Service Date, if different from initiated Date: [] Patient: Mauri Levine 35 y/o M admitted on 08/20/21 for DKA. Chief Complaint: [] Interval history: History of present illness: Mr. Levine is a 35 year old M Presents to the hospital with identical presentation to recent admissions (emphasis on plural). Patient ran out of insulin for his pump several days ago and says he did not think to replace it. He has a history of diabetes type 1 on insulin pump and gastroparesis Patient said he was planning to get assistance to make sure he keeps on track with his insulin regimen. Blood glucose in the ED was about 1162, his creatinine 4.9 Among his other lab normalities. Given IV insulin and started on a drip in the ED. Reactive leukocytosis. No acidosis on VBG or chemistry. 2/4 Nausea and vomiting several times overnight. Critical degree of HHS upon presentation. Improving slowly. Review of Systems: denies headache/fever/chills/chest or abdominal pain/cough/dyspnea/diarrhea. Otherwise see above. Constitutional Vitals: Vital Signs Temp Pulse Resp BP Pulse Ox 98.1 F 80 19 100/60 96 08/21/21 04:02 08/21/21 07:00 08/21/21 07:00 08/21/21 07:00 08/21/21 07:00 Period Temp Pulse Resp BP Sys/Menard Pulse Ox Last 24 Hr 97.0 F-98.3 F 77-88 10-29 70-115/38-88 93-100 Intake and Output 08/20/21 08/21/21 08/21/21 21:59 05:59 13:59 Intake Total 2077 2290 1000 Output Total 50 1050 Balance 2027 124 1000 Weight 69.808 kg Intake & Output: Intake & Output 08/20/21 08/21/21 08/21/21 21:59 05:59 13:59 Intake Total 2077 2290 1000 Output Total 50 1050 Balance 2027 124 1000 Weight 69.808 kg Intake: IV 2077 2170 1000 Sodium Chloride 0.9% 1,000 ml @ 2000 2000 1000 250 mls/hr IV .Q4H [facility] Rx#: [id number] Sodium Chloride 0.9% 250 ml @ 54 0 20 mls/hr IV .[id number] [facility] Rx#: [id number] HumuLIN R 50 UNIT In Sodium 28 117 0 Chloride 0.9% 99.5 ml @ 9 UNIT/ HR 18 mls/hr IV DUR [facility] Rx#: [id number] Oral 120 Output: Urine Catheter Amount 1000 Void Amount 0 Emesis 50 50 Other: Urine Appearance Clear Urine Color Pale Exam: General:Weak and lethargic, No acute Distress Eyes/N/T: EOMI, Head/Neck: neck supple, CV: RRR, 2/6 SM, Pulm: Clear b/l, no wheezing/rhonchi/rales Abd: soft, nontender, +BS x4 Ext: no clubbing/cyanosis/edema Neuro: Lethargic, no focal deficits, moves all extremities, Skin: warm/dry OBJ DATA Labs CBC & Chem 7: 08/20/21 16:09 08/21/21 06:53 Labs: Abnormal Lab Results 08/21/21 08/21/21 08/21/21 05:29 02:35 02:35 WBC RBC Hgb POC Hct 34 L MCHC MPV Neut % (Auto) Lymph % (Auto) Lymph # (Auto) [place] # (Auto) Absolute Neutrophils ABG Methemoglobin 0.3 L VBG pH 7.53 H VBG pCO2 54.1 H VBG pO2 147.4 H VBG HCO3 44.5 H* VBG Total CO2 46.2 H* VBG O2 Saturation 90.1 H VBG Base Excess 19 H Carboxyhemoglobin 8.6 H Total Hemoglobin 10.5 L POC Sodium 125 L Sodium Potassium POC Chloride 70 L Chloride Carbon Dioxide POC Total CO2 43 H* Anion Gap POC BUN 59 H BUN Creatinine POC Creatinine 4.2 H POC Glucose 656 H* Random Glucose 832 H* Osmolality Uric Acid Calcium POC WB Ioniz Calcium 0.76 L Phosphorus Magnesium Alkaline Phosphatase Lactate Dehydrogenase Triglycerides Lipase Beta-Hydroxybutyrate 08/21/21 08/21/21 08/20/21 02:35 00:36 22:36 WBC RBC Hgb POC Hct MCHC MPV Neut % (Auto) Lymph % (Auto) Lymph # (Auto) [place] # (Auto) Absolute Neutrophils ABG Methemoglobin VBG pH VBG pCO2 VBG pO2 VBG HCO3 VBG Total CO2 VBG O2 Saturation VBG Base Excess Carboxyhemoglobin Total Hemoglobin POC Sodium Sodium 127 L Potassium POC Chloride Chloride 68 L Carbon Dioxide 38 H POC Total CO2 Anion Gap 21.0 H POC BUN BUN Creatinine POC Creatinine POC Glucose Random Glucose 1029 H* 1237 H* Osmolality Uric Acid Calcium POC WB Ioniz Calcium Phosphorus Magnesium 3.8 H Alkaline Phosphatase Lactate Dehydrogenase Triglycerides Lipase Beta-Hydroxybutyrate 08/20/21 08/20/21 08/20/21 22:36 20:35 18:30 WBC RBC Hgb POC Hct MCHC MPV Neut % (Auto) Lymph % (Auto) Lymph # (Auto) [place] # (Auto) Absolute Neutrophils ABG Methemoglobin 0.3 L 0.3 L VBG pH 7.43 H 7.48 H VBG pCO2 52.2 H VBG pO2 107.4 H 78.6 H VBG HCO3 34.0 H VBG Total CO2 35.6 H VBG O2 Saturation 91.8 H 89.0 H VBG Base Excess 8 H Carboxyhemoglobin 5.8 H 6.9 H Total Hemoglobin 11.1 L 11.9 L POC Sodium Sodium Potassium POC Chloride Chloride Carbon Dioxide POC Total CO2 Anion Gap POC BUN BUN Creatinine POC Creatinine POC Glucose Random Glucose 1414 H* Osmolality Uric Acid Calcium POC WB Ioniz Calcium Phosphorus Magnesium Alkaline Phosphatase Lactate Dehydrogenase Triglycerides Lipase Beta-Hydroxybutyrate 08/20/21 08/20/21 08/20/21 18:30 18:22 18:19 WBC RBC Hgb POC Hct MCHC MPV Neut % (Auto) Lymph % (Auto) Lymph # (Auto) [place] # (Auto) Absolute Neutrophils ABG Methemoglobin VBG pH VBG pCO2 VBG pO2 VBG HCO3 VBG Total CO2 VBG O2 Saturation VBG Base Excess Carboxyhemoglobin Total Hemoglobin POC Sodium Sodium 112 L* Potassium 5.2 H POC Chloride Chloride < 60 L Carbon Dioxide POC Total CO2 Anion Gap 29.0 H POC BUN BUN 65 H Creatinine 4.7 H POC Creatinine POC Glucose Random Glucose Osmolality 374 H Uric Acid 8.9 H Calcium 7.6 L POC WB Ioniz Calcium Phosphorus 11.4 H* Magnesium 3.4 H 3.5 H Alkaline Phosphatase 124 H Lactate Dehydrogenase 266 H Triglycerides 179 H Lipase Beta-Hydroxybutyrate 08/20/21 08/20/21 08/20/21 18:16 16:09 16:09 WBC 15.0 H RBC 4.23 L Hgb 12.3 L POC Hct MCHC 30.1 L MPV 13.9 H Neut % (Auto) 85.9 H Lymph % (Auto) 6.3 L Lymph # (Auto) 0.94 L [place] # (Auto) 1.16 H Absolute Neutrophils 12.90 H ABG Methemoglobin VBG pH VBG pCO2 VBG pO2 VBG HCO3 VBG Total CO2 VBG O2 Saturation VBG Base Excess Carboxyhemoglobin Total Hemoglobin POC Sodium Sodium 111 L* Potassium POC Chloride Chloride < 60 L Carbon Dioxide POC Total CO2 Anion Gap 28.0 H POC BUN BUN 69 H Creatinine 4.9 H POC Creatinine POC Glucose Random Glucose Osmolality Uric Acid Calcium 7.6 L POC WB Ioniz Calcium Phosphorus Magnesium Alkaline Phosphatase 126 H Lactate Dehydrogenase Triglycerides Lipase 135 H Beta-Hydroxybutyrate 15.22 H Meds: Medications Acetaminophen (Acetaminophen 325 Mg Tablet) 650 mg PO Q4-6HP PRN; Protocol PRN Reason: Per Pain Protocol/Fever > 101 Enoxaparin Sodium (Enoxaparin 40 Mg/0.4 Ml Syringe) 40 mg SQ DAILY [place] Famotidine (Famotidine/Pf 20 Mg/2 Ml Vial) 20 mg IV HS [facility] Last Admin: 08/20/21 22:52 Dose: 20 mg Documented by: Potassium Chloride 40 meq/ (Dextrose) 520 mls @ 130 mls/hr IV UD PRN PRN Reason: K+ < 3.0 Magnesium Sulfate (Magnesium Sulfate) 2 gm in 50 mls @ 25 mls/hr IV UD PRN PRN Reason: Magnesium </= 1.6 Sodium Chloride (Sodium Chloride 0.9%) 1,000 mls @ 250 mls/hr IV .Q4H [facility] Last Admin: 08/21/21 06:47 Dose: 250 mls/hr Documented by: Norepinephrine Bitartrate 8 mg (/ Sodium Chloride) 250 mls @ 18.75 mls/hr IV Q14H [facility]; Protocol Last Admin: 08/21/21 06:48 Dose: Not Given Documented by: Sodium Chloride (Sodium Chloride 0.9%) 250 mls @ 20 mls/hr IV .[id number] [facility] Last Infusion: 08/21/21 07:02 Dose: 20 mls/hr Documented by: Insulin Human Regular 50 unit/ (Sodium Chloride) 100 mls @ 18 mls/hr IV DUR [facility]; Protocol Last Titration: 08/21/21 07:02 Dose: 4.5 unit/hr, 9 mls/hr Documented by: Labetalol HCl (Labetalol 5 Mg/Ml Ml) 0 mg IV Q2HP PRN PRN Reason: Hypertension Lorazepam (Lorazepam 2 Mg/Ml Vial) 0.5 mg IV Q2-4HP PRN PRN Reason: Anxiety/Sedation/NAUSEA Last Admin: 08/21/21 06:52 Dose: 0.5 mg Documented by: Potassium Chloride (Potassium Chloride 20 Meq Tablet) 20 meq PO UD PRN PRN Reason: K+ < 3.0 Potassium Chloride (Potassium Chloride 20 Meq Tablet) 40 meq PO UD PRN PRN Reason: K+ = 3-3.5 Last Admin: 08/21/21 04:14 Dose: 40 meq Documented by: Scopolamine (Scopolamine 1 Patch Patch) 1 patch TOPICAL Q72H [facility] Last Admin: 08/20/21 23:04 Dose: 1 patch Documented by: Sodium Chloride (0.9 % Sodium Chloride 10 Ml Syringe) 10 ml IV Q8 [facility] Last Admin: 08/21/21 06:52 Dose: 10 ml Documented by: ABG Interpretation ABG results: 08/20/21 08/20/21 08/21/21 18:30 22:36 02:35 ABG Methemoglobin 0.3 L 0.3 L 0.3 L VBG pH 7.48 H 7.43 H 7.53 H VBG pCO2 TNP 52.2 H 54.1 H VBG pO2 78.6 H 107.4 H 147.4 H VBG HCO3 TNP 34.0 H 44.5 H* VBG Total CO2 TNP 35.6 H 46.2 H* VBG O2 Saturation 89.0 H 91.8 H 90.1 H VBG Base Excess TNP 8 H 19 H A/P Narrative A/P Narrative: A: *HHS-DKA overlap, Severe: *DMI with Gastroparesis/Neuropathy: -A1c 8.9 (June) *Hypotension from Severe Hypovolemia: low normal but stable *Corrected Sodium on admit 128: *ROSALIO on CKD IIIb-IV: Follows with Dr. Mills *Anemia, chronic: *HTN: On coreg/clonidine/lisinopril *Anxiety/depression: med list both Fluoxetine and Fluvoxamine, will have to clarify *Long QT Syndrome: noted on EKG's since 2019. Pt is on SSRI *GERD: P: -Insulin gtt -IV fluids -Monitor electrolytes and replace -clear liquids if patient is tolerant and advance diet as able to gastroparesis diet (low fat, soluble fiber) -Antiemetics that won't prolong QT (Scopolamine,Benzodiazepines, Dexamethasone) -Hold BP meds for hypotension. clonidine/BB, restart ACEI once renal fxn at baseline, IV prn BP meds -home med reconciliation, clarify if actually taking two SSRI's -ppx: Lovenox/H2 Time Spent With Patient Time: Total time spent is greater than 50% in coordination of care (as documented) at patient's floor/unit and/or counseling patient: QUALITY Stroke Symptom Onset Unknown: No VTE Deep Vein Thrombosis/Pulmonary Embolism Present on Admission: No
[2021-08-21 07:48] LABS: Glucose 688 mg/dL (70-105)
--- NOTE | 2021-08-21 08:38 | EKG ---
[facility] Test Date: 2021-08-20 Pat Name: Mauri Levine Department: ED Room: Gender: Male Mft: SELAM : 1985 Requested By: Flynn Rivero Order Number: [id number] Reading MD: Demetrius Interiano M.D. Measurements Intervals [place] Rate: 87 P: 76 NM: 155 QRS: 84 QRSD: 101 T: 69 QT: 433 QTc: 521 Interpretive Statements Sinus rhythm Biatrial enlargement Nonspecific T abnrm, anterolateral leads Prolonged QT interval Electronically Signed On 08-21-2021 8:37:43 PST by Demetrius Interiano M.D. /store/M0/[id number]
[2021-08-21 09:04] LABS: Hematocrit 30.1 % (40.1-51.0); Hemoglobin 10.7 g/dL (13.7-17.5); Mean Cell Volume 81.1 fL (80.0-100.0); Mean Corpuscular HGB Conc 35.5 g/dL (31.0-36.0); Mean Platelet Volume 12.7 fL (7.4-10.4); Platelet Count 218 K/mcL (140-440); RBC 3.71 M/mcL (4.63-6.08); Red Cell Distribution Width 12.4 % (11.5-14.5); WBC 20.7 K/mcL (4.5-11.0)
[2021-08-21] MEDS ORDERED: INSULIN REGULAR, HUMAN 1 UNIT/0.01 ML UNIT IV ONE ×4 (09:13→19:08)
[2021-08-21 09:24] LABS: ALT/SGPT 11 U/L (<40); AST/SGOT 13 U/L (<40); Albumin 3.4 gm/dL (3.2-5.2); Albumin/Globulin Ratio 1.6 (1.0-2.3); Alkaline Phosphatase 96 U/L (39-117); Bilirubin,Direct < 0.2 mg/dL (0-0.3); Bilirubin,Total 0.3 mg/dL (0.1-1.0); Blood Urea Nitrogen 63 mg/dL (6-20); Calcium 6.6 mg/dL (8.6-10.4); Carbon Dioxide 42 mmol/L (22-30); Chloride 73 mmol/L (96-108); Globulin 2.1 gm/dL (2.2-3.7); Glomerular Filtration Rate 17; Glucose 670 mg/dL (70-105); Lactate Dehydrogenase 192 U/L (135-225); Phosphorous 5.5 mg/dL (2.5-4.5); Triglycerides 117 mg/dL (<150); Uric Acid 9.2 mg/dL (2.5-8.0)
[2021-08-21] MEDS: ENOXAPARIN 40 MG/0.4 ML SYRINGE SQ SCH (09:25)
[2021-08-21] MEDS: FLUoxetine HCL 20 MG CAPSULE PO SCH (10:30)
[2021-08-21 12:25] LABS: Lymphocytes % 8 % (15-49); Monocytes % (Manual) 6 % (1-12); Platelet Estimate NORMAL (Normal); RBC Morphology NORMAL (Normal); Segmented Neutrophils % 86 % (38-78)
[2021-08-21 12:43] LABS: Appearance,Urine Clear (Clear); Bilirubin,Urine Negative (Negative); Color,Urine Yellow; Culture Indicated,Urine No; Glucose,Urine (UA) 500(2+) mg/dL (Negative); Ketones,Urine 5(Trace) mg/dL (Negative); Leukocyte Esterase,Urine Negative /uL (Negative); Nitrate,Urine Negative (Negative); Protein,Urine 30 mg/dL (Negative); Specific Gravity,Urine 1.015 (1.000-1.035); Urine Blood 2+(Moderate) ery/mcL (Negative); Urine RBC < 1 /hpf (0-3); Urine Squamous Epithelial Cell 0 /hpf (0-4); Urine WBC 3 /hpf (0-4)
[2021-08-21] MEDS: DEXTROSE 5%-NS 1,000 ML IV SCH ×2 (12:45→18:37)
--- NOTE | 2021-08-21 14:13 | EKG ---
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
[2021-08-21 15:47] LABS: Blood Urea Nitrogen 54 mg/dL (6-20); Calcium 6.7 mg/dL (8.6-10.4); Carbon Dioxide 40 mmol/L (22-30); Chloride 82 mmol/L (96-108); Glomerular Filtration Rate 19; Glucose 207 mg/dL (70-105); Phosphorous 3.3 mg/dL (2.5-4.5)
[2021-08-21] MEDS ORDERED: POTASSIUM CHLORIDE 40 MEQ in DEXTROSE 5% IN WATER 500 ML IV ONE (16:16)
[2021-08-21] MEDS ORDERED: INSULIN REGULAR, HUMAN 1 UNIT/0.01 ML UNIT ONE (19:18)
[2021-08-21] MEDS ORDERED: POTASSIUM CHLORIDE 20 MEQ in DEXTROSE 5% IN WATER 250 ML IV ONE (19:54)
[2021-08-21] MEDS: FAMOTIDINE/PF 20 MG/2 ML VIAL IV SCH (20:44)
[2021-08-22] MEDS: LORazepam 2 MG/ML VIAL IV PRN ×4 (02:10→23:00)
[2021-08-22] MEDS ORDERED: POTASSIUM CHLORIDE 20 MEQ/10 ML VIAL IV ONE (02:10)
[2021-08-22] MEDS: DEXTROSE 5%-NS 1,000 ML IV SCH ×3 (02:16→14:28)
[2021-08-22] MEDS: NOREPINEPHRINE BITARTRATE 8 MG in 0.9 % SODIUM CHLORIDE 242 ML IV SCH (02:25)
[2021-08-22] MEDS: 0.9 % SODIUM CHLORIDE 10 ML SYRINGE IV SCH ×5 (06:01→20:18)
[2021-08-22 06:55] LABS: Hematocrit 27.3 % (40.1-51.0); Hemoglobin 9.1 g/dL (13.7-17.5); Mean Cell Volume 86.9 fL (80.0-100.0); Mean Corpuscular HGB Conc 33.3 g/dL (31.0-36.0); Mean Platelet Volume 12.3 fL (7.4-10.4); Platelet Count 155 K/mcL (140-440); RBC 3.14 M/mcL (4.63-6.08); Red Cell Distribution Width 13.2 % (11.5-14.5); WBC 11.6 K/mcL (4.5-11.0)
[2021-08-22 07:09] LABS: ALT/SGPT 12 U/L (<40); AST/SGOT 15 U/L (<40); Albumin/Globulin Ratio 1.5 (1.0-2.3); Alkaline Phosphatase 72 U/L (39-117); Bilirubin,Direct < 0.2 mg/dL (0-0.3); Bilirubin,Total < 0.2 mg/dL (0.1-1.0); Blood Urea Nitrogen 35 mg/dL (6-20); Calcium 7.2 mg/dL (8.6-10.4); Carbon Dioxide 30 mmol/L (22-30); Chloride 93 mmol/L (96-108); Glomerular Filtration Rate 26; Glucose 244 mg/dL (70-105); Lactate Dehydrogenase 202 U/L (135-225); Phosphorous 1.9 mg/dL (2.5-4.5); Triglycerides 60 mg/dL (<150); Uric Acid 6.5 mg/dL (2.5-8.0)
[2021-08-22 07:19] LABS: Beta Hydroxybutyrate 0.19 mmol/L (<0.27)
--- NOTE | 2021-08-22 08:06 | Internal Med Progress Note ---
SUBJECTIVE Subjective Patient information: Note initiated : 08/22/21 at 8:02 am Service Date, if different from initiated Date: [] Patient: Mauri Levine 35 y/o M admitted on 08/21/21 for DKA. Chief Complaint: [] Interval history: History of present illness: Mr. Levine is a 35 year old M Presents to the hospital with identical presentation to recent admissions (emphasis on plural). Patient ran out of insulin for his pump several days ago and says he did not think to replace it. He has a history of diabetes type 1 on insulin pump and gastroparesis Patient said he was planning to get assistance to make sure he keeps on track with his insulin regimen. Blood glucose in the ED was about 1162, his creatinine 4.9 Among his other lab normalities. Given IV insulin and started on a drip in the ED. Reactive leukocytosis. No acidosis on VBG or chemistry. 2/4 Nausea and vomiting several times overnight. Critical degree of HHS upon presentation. Improving slowly. 2/5 Patient still weak but feeling better. Able to tolerate liquid diet. Laboratory improving. Creatinine improving. Goal today is to get insulin pump on and eating and drinking, monitoring sugars and hopefully discharge in the morning. Review of Systems: denies headache/fever/chills/chest or abdominal pain/cough/dyspnea/diarrhea. Otherwise see above. Constitutional Vitals: Vital Signs Temp Pulse Resp BP Pulse Ox 99.5 F H 68 20 144/79 99 08/22/21 04:00 08/22/21 07:01 08/22/21 07:01 08/22/21 07:01 08/22/21 07:01 Period Temp Pulse Resp BP Sys/Menard Pulse Ox Last 24 Hr 98 F-99.5 F 64-91 14-25 91-147/53-92 95-100 Intake and Output 08/21/21 08/22/21 08/22/21 21:59 05:59 13:59 Intake Total 2309 1371 Output Total 2124 1475 350 Balance 184 -104 -350 Weight 76.113 kg Intake & Output: Intake & Output 08/21/21 08/22/21 08/22/21 21:59 05:59 13:59 Intake Total 2309 1371 Output Total 2124 1475 350 Balance 184 -104 -350 Weight 76.[place]: [place] [address] Sodium Chloride 0.9% 250 ml @ 196 141 20 mls/hr IV .[id number] [facility] Rx#: [id number] Dextrose 5%-Ns IV Solution 1, 1310 690 000 ml @ 200 mls/hr IV .Q5H [facility] Rx#:[id number] HumuLIN R 50 UNIT In Sodium 43 40 Chloride 0.9% 99.5 ml @ 9 UNIT/ HR 18 mls/hr IV DUR [facility] Rx#: [id number] Potassium Chloride 20 Meq In 260 Dextrose 5% in Water 250 ml @ 130 mls/hr IV ONCE ONE Rx#: [id number] Potassium Chloride 40 Meq In 520 Dextrose 5% in Water 500 ml @ 130 mls/hr IV ONCE ONE Rx#: [id number] Oral 240 240 Output: Urine Catheter Amount 2125 1475 Void Amount 350 Other: Urine Appearance Clear Clear Clear Uretheral (Mcknight) Clear Urine Color Pale Pale Bright Yellow Uretheral (Mcknight) Pale Urine Odor Normal Exam: General:Weak, No acute Distress Eyes/N/T: EOMI, Head/Neck: neck supple, CV: RRR, 2/6 SM, Pulm: Clear b/l, no wheezing/rhonchi/rales Abd: soft, nontender, +BS x4 Ext: no clubbing/cyanosis/edema Neuro: Lethargic but improved no focal deficits, moves all extremities, Skin: warm/dry OBJ DATA Labs CBC & Chem 7: 08/22/21 05:56 08/22/21 05:56 Labs: Abnormal Lab Results 08/22/21 08/22/21 08/21/21 05:56 05:56 14:27 WBC 11.6 H RBC 3.14 L Hgb 9.1 L Hct 27.3 L POC Hct MCHC MPV 12.3 H Neut % (Auto) Lymph % (Auto) Lymph # (Auto) Hickman # (Auto) Seg Neutrophils % Lymphocytes % Absolute Neutrophils ABG Methemoglobin VBG pH VBG pCO2 VBG pO2 VBG HCO3 VBG Total CO2 VBG O2 Saturation VBG Base Excess Carboxyhemoglobin Total Hemoglobin POC Sodium Sodium 132 L Potassium POC Chloride Chloride 93 L Carbon Dioxide POC Total CO2 Anion Gap POC BUN BUN 35 H Creatinine 3.0 H POC Creatinine Glucose 244 H POC Glucose Random Glucose Osmolality 305 H Uric Acid Calcium 7.2 L POC WB Ioniz Calcium Phosphorus 1.9 L Magnesium 2.7 H Alkaline Phosphatase Lactate Dehydrogenase Total Protein 5.0 L Albumin 3.0 L Globulin 2.0 L Triglycerides Lipase Beta-Hydroxybutyrate Urine Protein Urine Glucose (UA) Urine Ketones Urine Occult Blood Urine Urobilinogen 08/21/21 08/21/21 08/21/21 14:27 10:50 06:53 WBC RBC Hgb Hct POC Hct MCHC MPV Neut % (Auto) Lymph % (Auto) Lymph # (Auto) Hickman # (Auto) Seg Neutrophils % Lymphocytes % Absolute Neutrophils ABG Methemoglobin VBG pH VBG pCO2 VBG pO2 VBG HCO3 VBG Total CO2 VBG O2 Saturation VBG Base Excess Carboxyhemoglobin Total Hemoglobin POC Sodium Sodium 132 L Potassium 3.2 L POC Chloride Chloride 82 L Carbon Dioxide 40 H POC Total CO2 Anion Gap POC BUN BUN 54 H Creatinine 3.8 H POC Creatinine Glucose 207 H 688 H* POC Glucose Random Glucose Osmolality Uric Acid Calcium 6.7 L POC WB Ioniz Calcium Phosphorus Magnesium 3.1 H Alkaline Phosphatase Lactate Dehydrogenase Total Protein Albumin Globulin Triglycerides Lipase Beta-Hydroxybutyrate Urine Protein 30 A Urine Glucose (UA) 500(2+) A Urine Ketones 5(trace) A Urine Occult Blood 2+(moderate) A Urine Urobilinogen 2.0 A 08/21/21 08/21/21 08/21/21 05:29 05:10 05:10 WBC RBC Hgb Hct POC Hct 34 L MCHC MPV Neut % (Auto) Lymph % (Auto) Lymph # (Auto) Hickman # (Auto) Seg Neutrophils % 86 H Lymphocytes % 8 L Absolute Neutrophils ABG Methemoglobin VBG pH VBG pCO2 VBG pO2 VBG HCO3 VBG Total CO2 VBG O2 Saturation VBG Base Excess Carboxyhemoglobin Total Hemoglobin POC Sodium 125 L Sodium 129 L Potassium POC Chloride 70 L Chloride 73 L Carbon Dioxide 42 H* POC Total CO2 43 H* Anion Gap POC BUN 59 H BUN 63 H Creatinine 4.3 H POC Creatinine 4.2 H Glucose 670 H* POC Glucose 656 H* Random Glucose Osmolality Uric Acid 9.2 H Calcium 6.6 L POC WB Ioniz Calcium 0.76 L Phosphorus 5.5 H Magnesium 3.7 H Alkaline Phosphatase Lactate Dehydrogenase Total Protein 5.5 L Albumin Globulin 2.1 L Triglycerides Lipase Beta-Hydroxybutyrate Urine Protein Urine Glucose (UA) Urine Ketones Urine Occult Blood Urine Urobilinogen 08/21/21 08/21/21 08/21/21 05:10 02:35 02:35 WBC 20.7 H RBC 3.71 L Hgb 10.7 L Hct 30.1 L POC Hct MCHC MPV 12.7 H Neut % (Auto) Lymph % (Auto) Lymph # (Auto) [place]ickman # (Auto) Seg Neutrophils % Lymphocytes % Absolute Neutrophils ABG Methemoglobin 0.3 L VBG pH 7.53 H VBG pCO2 54.1 H VBG pO2 147.4 H VBG HCO3 44.5 H* VBG Total CO2 46.2 H* VBG O2 Saturation 90.1 H VBG Base Excess 19 H Carboxyhemoglobin 8.6 H Total Hemoglobin 10.5 L POC Sodium Sodium Potassium POC Chloride Chloride Carbon Dioxide POC Total CO2 Anion Gap POC BUN BUN Creatinine POC Creatinine Glucose POC Glucose Random Glucose 832 H* Osmolality Uric Acid Calcium POC WB Ioniz Calcium Phosphorus Magnesium Alkaline Phosphatase Lactate Dehydrogenase Total Protein Albumin Globulin Triglycerides Lipase Beta-Hydroxybutyrate Urine Protein Urine Glucose (UA) Urine Ketones Urine Occult Blood Urine Urobilinogen 08/21/21 08/21/21 08/20/21 02:35 00:36 22:36 WBC RBC Hgb Hct POC Hct MCHC MPV Neut % (Auto) Lymph % (Auto) Lymph # (Auto) Hickman # (Auto) Seg Neutrophils % Lymphocytes % Absolute Neutrophils ABG Methemoglobin VBG pH VBG pCO2 VBG pO2 VBG HCO3 VBG Total CO2 VBG O2 Saturation VBG Base Excess Carboxyhemoglobin Total Hemoglobin POC Sodium Sodium 127 L Potassium POC Chloride Chloride 68 L Carbon Dioxide 38 H POC Total CO2 Anion Gap 21.0 H POC BUN BUN Creatinine POC Creatinine Glucose POC Glucose Random Glucose 1029 H* 1237 H* Osmolality Uric Acid Calcium POC WB Ioniz Calcium Phosphorus Magnesium 3.8 H Alkaline Phosphatase Lactate Dehydrogenase Total Protein Albumin Globulin Triglycerides Lipase Beta-Hydroxybutyrate Urine Protein Urine Glucose (UA) Urine Ketones Urine Occult Blood Urine Urobilinogen 08/20/21 08/20/21 08/20/21 22:36 20:35 18:30 WBC RBC Hgb Hct POC Hct MCHC MPV Neut % (Auto) Lymph % (Auto) Lymph # (Auto) Hickman # (Auto) Seg Neutrophils % Lymphocytes % Absolute Neutrophils ABG Methemoglobin 0.3 L 0.3 L VBG pH 7.43 H 7.48 H VBG pCO2 52.2 H VBG pO2 107.4 H 78.6 H VBG HCO3 34.0 H VBG Total CO2 35.6 H VBG O2 Saturation 91.8 H 89.0 H VBG Base Excess 8 H Carboxyhemoglobin 5.8 H 6.9 H Total Hemoglobin 11.1 L 11.9 L POC Sodium Sodium Potassium POC Chloride Chloride Carbon Dioxide POC Total CO2 Anion Gap POC BUN BUN Creatinine POC Creatinine Glucose POC Glucose Random Glucose 1414 H* Osmolality Uric Acid Calcium POC WB Ioniz Calcium Phosphorus Magnesium Alkaline Phosphatase Lactate Dehydrogenase Total Protein Albumin Globulin Triglycerides Lipase Beta-Hydroxybutyrate Urine Protein Urine Glucose (UA) Urine Ketones Urine Occult Blood Urine Urobilinogen 08/20/21 08/20/21 08/20/21 18:30 18:22 18:19 WBC RBC Hgb Hct POC Hct MCHC MPV Neut % (Auto) Lymph % (Auto) Lymph # (Auto) Hickman # (Auto) Seg Neutrophils % Lymphocytes % Absolute Neutrophils ABG Methemoglobin VBG pH VBG pCO2 VBG pO2 VBG HCO3 VBG Total CO2 VBG O2 Saturation VBG Base Excess Carboxyhemoglobin Total Hemoglobin POC Sodium Sodium 112 L* Potassium 5.2 H POC Chloride Chloride < 60 L Carbon Dioxide POC Total CO2 Anion Gap 29.0 H POC BUN BUN 65 H Creatinine 4.7 H POC Creatinine Glucose POC Glucose Random Glucose Osmolality 374 H Uric Acid 8.9 H Calcium 7.6 L POC WB Ioniz Calcium Phosphorus 11.4 H* Magnesium 3.4 H 3.5 H Alkaline Phosphatase 124 H Lactate Dehydrogenase 266 H Total Protein Albumin Globulin Triglycerides 179 H Lipase Beta-Hydroxybutyrate Urine Protein Urine Glucose (UA) Urine Ketones Urine Occult Blood Urine Urobilinogen 08/20/21 08/20/21 08/20/21 18:16 16:09 16:09 WBC 15.0 H RBC 4.23 L Hgb 12.3 L Hct POC Hct MCHC 30.1 L MPV 13.9 H Neut % (Auto) 85.9 H Lymph % (Auto) 6.3 L Lymph # (Auto) 0.94 L Hickman # (Auto) 1.16 H Seg Neutrophils % Lymphocytes % Absolute Neutrophils 12.90 H ABG Methemoglobin VBG pH VBG pCO2 VBG pO2 VBG HCO3 VBG Total CO2 VBG O2 Saturation VBG Base Excess Carboxyhemoglobin Total Hemoglobin POC Sodium Sodium 111 L* Potassium POC Chloride Chloride < 60 L Carbon Dioxide POC Total CO2 Anion Gap 28.0 H POC BUN BUN 69 H Creatinine 4.9 H POC Creatinine Glucose POC Glucose Random Glucose Osmolality Uric Acid Calcium 7.6 L POC WB Ioniz Calcium Phosphorus Magnesium Alkaline Phosphatase 126 H Lactate Dehydrogenase Total Protein Albumin Globulin Triglycerides Lipase 135 H Beta-Hydroxybutyrate 15.22 H Urine Protein Urine Glucose (UA) Urine Ketones Urine Occult Blood Urine Urobilinogen Meds: Medications Acetaminophen (Acetaminophen 325 Mg Tablet) 650 mg PO Q4-6HP PRN; Protocol PRN Reason: Per Pain Protocol/Fever > 101 Diagnostic Test (Pha) (Accu-Chek 1 Each Strip) 1 each FS Q1 [facility] Last Admin: 08/22/21 07:00 Dose: 1 each Documented by: Enoxaparin Sodium (Enoxaparin 40 Mg/0.4 Ml Syringe) 40 mg SQ DAILY [facility] Last Admin: 08/21/21 09:25 Dose: 40 mg Documented by: Famotidine (Famotidine/Pf 20 Mg/2 Ml Vial) 20 mg IV HS [facility] Last Admin: 08/21/21 20:44 Dose: 20 mg Documented by: Fluoxetine HCl (Fluoxetine Hcl 20 Mg Capsule) 20 mg PO DAILY [facility] Last Admin: 08/21/21 10:30 Dose: 20 mg Documented by: Potassium Chloride 40 meq/ (Dextrose) 520 mls @ 130 mls/hr IV UD PRN PRN Reason: K+ < 3.0 Magnesium Sulfate (Magnesium Sulfate) 2 gm in 50 mls @ 25 mls/hr IV UD PRN PRN Reason: Magnesium </= 1.6 Norepinephrine Bitartrate 8 mg (/ Sodium Chloride) 250 mls @ 18.75 mls/hr IV Q 14H [facility]; Protocol Last Admin: 08/22/21 02:25 Dose: Not Given Documented by: Sodium Chloride (Sodium Chloride 0.9%) 250 mls @ 20 mls/hr IV .[id number] [facility] Last Infusion: 08/22/21 03:10 Dose: 20 mls/hr Documented by: Insulin Human Regular 50 unit/ (Sodium Chloride) 100 mls @ 18 mls/hr IV DUR [facility]; Protocol Last Titration: 08/22/21 04:16 Dose: 3 unit/hr, 6 mls/hr Documented by: Dextrose/Sodium Chloride (Dextrose 5%-Ns Iv Solution) 1,000 mls @ 125 mls/hr IV .Q8H [facility] Last Admin: 08/22/21 02:16 Dose: 125 mls/hr Documented by: Labetalol HCl (Labetalol 5 Mg/Ml Ml) 0 mg IV Q2HP PRN PRN Reason: Hypertension Lorazepam (Lorazepam 2 Mg/Ml Vial) 0.5 mg IV Q2-4HP PRN PRN Reason: Anxiety/Sedation/NAUSEA Last Admin: 08/22/21 07:19 Dose: 0.5 mg Documented by: Potassium Chloride (Potassium Chloride 20 Meq Tablet) 20 meq PO UD PRN PRN Reason: K+ < 3.0 Potassium Chloride (Potassium Chloride 20 Meq Tablet) 40 meq PO UD PRN PRN Reason: K+ = 3-3.5 Last Admin: 08/21/21 04:14 Dose: 40 meq Documented by: Scopolamine (Scopolamine 1 Patch Patch) 1 patch TOPICAL Q72H [facility] Last Admin: 08/20/21 23:04 Dose: 1 patch Documented by: Sodium Chloride (0.9 % Sodium Chloride 10 Ml Syringe) 10 ml IV Q8 [facility] Last Admin: 08/22/21 07:19 Dose: 10 ml Documented by: ABG Interpretation ABG results: 08/20/21 08/20/21 08/21/21 18:30 22:36 02:35 ABG Methemoglobin 0.3 L 0.3 L 0.3 L VBG pH 7.48 H 7.43 H 7.53 H VBG pCO2 TNP 52.2 H 54.1 H VBG pO2 78.6 H 107.4 H 147.4 H VBG HCO3 TNP 34.0 H 44.5 H* VBG Total CO2 TNP 35.6 H 46.2 H* VBG O2 Saturation 89.0 H 91.8 H 90.1 H VBG Base Excess TNP 8 H 19 H A/P Narrative A/P Narrative: A: *HHS-DKA overlap, Severe: *DMI with Gastroparesis/Neuropathy: -A1c 8.9 (June) *Hypotension from Severe Hypovolemia: low normal but stable *Corrected Sodium on admit 128: *ROSALIO on CKD IIIb-IV: Follows with Dr. Mills -improving *Anemia, chronic: *HTN: On coreg/clonidine/lisinopril *Anxiety/depression: med list both Fluoxetine and Fluvoxamine, will have to clarify *Long QT Syndrome: noted on EKG's since 2019. Pt is on SSRI *GERD: P: -Insulin gtt with D5NS until pt awake and eating and insulin pump in place -Monitor electrolytes and replace -clear liquids if patient is tolerant and advance diet as able to gastroparesis diet (low fat, soluble fiber) -Antiemetics that won't prolong QT (Scopolamine,Benzodiazepines, Dexamethasone) -restart home BP meds. clonidine/BB, restart ACEI once renal fxn at baseline, IV prn BP meds -home med reconciliation, clarify if actually taking two SSRI's -ppx: Lovenox/H2 Time Spent With Patient Time: Total time spent is greater than 50% in coordination of care (as documented) at patient's floor/unit and/or counseling patient: QUALITY Stroke Symptom Onset Unknown: No VTE Deep Vein Thrombosis/Pulmonary Embolism Present on Admission: No
[2021-08-22] MEDS: 0.9 % SODIUM CHLORIDE 250 ML IV SCH ×2 (08:45→14:28)
[2021-08-22] MEDS ORDERED: POTASSIUM PHOSPHATE 40 MEQ in DEXTROSE 5% IN WATER 500 ML IV ONE (09:00)
[2021-08-22] MEDS ORDERED: FLUoxetine HCL 10 MG CAPSULE PO SCH (09:00)
[2021-08-22] MEDS ORDERED: cloNIDine TTS 2 1 PATCH PATCH TD SCH (09:00)
[2021-08-22] MEDS: FLUoxetine HCL 20 MG CAPSULE PO SCH (09:07)
[2021-08-22] MEDS: PHOSPHORUS 250 MG TABLET PO SCH ×2 (09:07→20:17)
[2021-08-22] MEDS: ENOXAPARIN 40 MG/0.4 ML SYRINGE SQ SCH (09:07)
[2021-08-22 10:07] LABS: Lymphocytes % 18 % (15-49); Monocytes % (Manual) 4 % (1-12); Platelet Estimate NORMAL (Normal); RBC Morphology NORMAL (Normal); Segmented Neutrophils % 78 % (38-78)
--- NOTE | 2021-08-22 10:10 | Discharge Summary ---
Discharge Provider Provider Patient information: Note initiated : 08/22/21 at 10:07 am Service Date, if different from initiated Date: [] Patient: Mauri Levine 35 y/o M admitted on 08/21/21 for DKA. Chief Complaint: [] Date of admission: 08/21/21 10:46 Discharge date: 08/24/21 Primary care physician: Flo Peña MD Consults: 08/20/21 Consult to Physician [CONS] Stat Comment: Consulting Provider: Deangelo Basilio Reason For Exam: Physician to Consult Discharge Meds Discharge Medications Home Medications atorvastatin 40 mg tablet 40 mg PO HS 02/13/19 [History Confirmed 08/21/21 Last Taken 06/02/21 09:00] clonidine 0.2 mg/24 hr weekly transdermal patch 1 patch TRANSDERMAL QWEEK #4 ea 03/26/21 [Rx Confirmed 08/21/21 Last Taken 06/02/21 09:00] insulin aspart U-100 100 unit/mL subcutaneous solution (Novolog U-100 Insulin aspart) See Rx Instructions .ROUTE .COMPLEX 03/26/21 [History Confirmed 08/21/21 Last Taken 06/04/21 18:00] lisinopril 10 mg tablet 10 mg PO QDAY #90 tab 07/01/21 [Rx Confirmed 08/21/21 Last Taken Unknown] furosemide 20 mg tablet 20 mg PO QAM PRN 08/03/21 [History Confirmed 08/21/21 Last Taken Unknown] carvedilol 6.25 mg tablet 3.125 mg PO BID 08/21/21 [History Confirmed 08/21/21 Last Taken Unknown] fluoxetine 10 mg capsule 20 mg PO DAILY 08/21/21 [History Confirmed 08/21/21 Last Taken Unknown] lorazepam 1 mg tablet 1 - 2 mg PO QDAY PRN 08/21/21 [History Confirmed 08/21/21 Last Taken Unknown] COURSE Hospital Course Hospital course: Interval history: History of present illness: Mr. Levine is a 35 year old M Presents to the hospital with identical presentation to recent admissions (emphasis on plural). Patient ran out of insulin for his pump several days ago and says he did not think to replace it. He has a history of diabetes type 1 on insulin pump and gastroparesis Patient said he was planning to get assistance to make sure he keeps on track with his insulin regimen. Blood glucose in the ED was about 1162, his creatinine 4.9 Among his other lab normalities. Given IV insulin and started on a drip in the ED. Reactive leukocytosis. No acidosis on VBG or chemistry. 2/4 Nausea and vomiting several times overnight. Critical degree of HHS upon presentation. Improving slowly. 2/5 Patient still weak but feeling better. Able to tolerate liquid diet. Laboratory improving. Creatinine improving. Goal today is to get insulin pump on and eating and drinking, monitoring sugars and hopefully discharge in the morning. 2/6 Glucose over 500 last night. Either the pump not working the site bad or the basal rates too low. Patient says he was not running the pump where he usually does. We will have to monitor closely and adjust pump accordingly if necessary. 2/7 Glucose went extremely high again last night after letting patient manage his own pump throughout the day. Had to cover Pt difficult to treat, not allowing us to give extra insulin when his glucose is 264. Patient says it is worse because he is anxious from being in here. Patient feels confident he can keep blood glucose controlled as he does at home once he is discharged. Patient high risk for readmission given multiple admissions. Would Recommend transfer to where manager brand is available if he comes back to the ED. A: *HHS-DKA overlap, Severe: *DMI with Gastroparesis/Neuropathy: -A1c 8.9 (June) *Encephalopathy: 2/2 above, resolved *Hypotension from Severe Hypovolemia: low normal but stable *Corrected Sodium on admit 128: *ROSALIO on CKD IIIb-IV: Follows with Dr. Mills *Anemia, chronic: *HTN: On coreg/clonidine/lisinopril *Anxiety/depression: med list both Fluoxetine and Fluvoxamine, will have to clarify >look like fluoxetine last filled *Long QT Syndrome: noted on EKG's since 2019. Pt is on SSRI *GERD: P: -advance diet as able to gastroparesis diet (low fat, soluble fiber) -Antiemetics that won't prolong QT (Scopolamine,Benzodiazepines, Dexamethasone) Discharge diagnosis: Severe HHS DKA Encephalopathy Secondary discharge diagnosis: Diabetes type 1 depression anxiety hypertension long QT syndrome anemia GERD Time Spent with Patient Time attestation: Total time spent providing and/or coordinating discharge services: Time spent: Greater than 30 minutes EXAM Constitutional Vitals: Temp Pulse Resp BP Pulse Ox 99.6 F H 79 22 133/65 97 08/22/21 08:01 08/22/21 10:03 08/22/21 10:03 08/22/21 10:03 08/22/21 10:03 Discharge Data Data Completed and Pending Labs on day of discharge: Labs from last 24 hours 08/22/21 08/22/21 08/22/21 05:56 05:56 05:56 WBC 11.6 H RBC 3.14 L Hgb 9.1 L Hct 27.3 L MCV 86.9 MCH 29.0 MCHC 33.3 RDW 13.2 Plt Count 155 MPV 12.3 H Seg Neutrophils % Lymphocytes % Monocytes % (Manual) Platelet Estimate Pending RBC Morphology Pending Sodium 132 L Potassium 3.5 Chloride 93 L Carbon Dioxide 30 Anion Gap 9.0 BUN 35 H Creatinine 3.0 H GFR Calculation 26 Glucose 244 H Osmolality 299 Uric Acid 6.5 Calcium 7.2 L Phosphorus 1.9 L Magnesium 2.7 H Total Bilirubin < 0.2 Direct Bilirubin < 0.2 GGT 9 AST 15 ALT 12 Alkaline Phosphatase 72 Lactate Dehydrogenase 202 Total Protein 5.0 L Albumin 3.0 L Globulin 2.0 L Albumin/Globulin Ratio 1.5 Triglycerides 60 Beta-Hydroxybutyrate 0.19 Urine Color Urine Appearance Urine pH Ur Specific [place] Urine Protein Urine Glucose (UA) Urine Ketones Urine Occult Blood Urine Nitrate Urine Bilirubin Urine Urobilinogen Ur Leukocyte Esterase Urine RBC Urine WBC Ur Squamous Epith Cells Urine Bacteria Ur Culture Indicated? 08/21/21 08/21/21 08/21/21 14:27 14:27 10:50 WBC RBC Hgb Hct MCV MCH MCHC RDW Plt Count MPV Seg Neutrophils % Lymphocytes % Monocytes % (Manual) Platelet Estimate RBC Morphology Sodium 132 L Potassium 3.2 L Chloride 82 L Carbon Dioxide 40 H Anion Gap 10.0 BUN 54 H Creatinine 3.8 H GFR Calculation 19 Glucose 207 H Osmolality 305 H Uric Acid Calcium 6.7 L Phosphorus 3.3 Magnesium 3.1 H Total Bilirubin Direct Bilirubin GGT AST ALT Alkaline Phosphatase Lactate Dehydrogenase Total Protein Albumin Globulin Albumin/Globulin Ratio Triglycerides Beta-Hydroxybutyrate Urine Color Yellow Urine Appearance Clear Urine pH 7.0 Ur Specific [place] 1.015 Urine Protein 30 A Urine Glucose (UA) 500(2+) A Urine Ketones 5(trace) A Urine Occult Blood 2+(moderate) A Urine Nitrate Negative Urine Bilirubin Negative Urine Urobilinogen 2.0 A Ur Leukocyte Esterase Negative Urine RBC < 1 Urine WBC 3 Ur Squamous Epith Cells 0 Urine Bacteria None Ur Culture Indicated? No 08/21/21 05:10 WBC RBC Hgb Hct MCV MCH MCHC RDW Plt Count MPV Seg Neutrophils % 86 H Lymphocytes % 8 L Monocytes % (Manual) 6 Platelet Estimate Normal RBC Morphology Normal Sodium Potassium Chloride Carbon Dioxide Anion Gap BUN Creatinine GFR Calculation Glucose Osmolality Uric Acid Calcium Phosphorus Magnesium Total Bilirubin Direct Bilirubin GGT AST ALT Alkaline Phosphatase Lactate Dehydrogenase Total Protein Albumin Globulin Albumin/Globulin Ratio Triglycerides Beta-Hydroxybutyrate Urine Color Urine Appearance Urine pH Ur Specific [place] Urine Protein Urine Glucose (UA) Urine Ketones Urine Occult Blood Urine Nitrate Urine Bilirubin Urine Urobilinogen Ur Leukocyte Esterase Urine RBC Urine WBC Ur Squamous Epith Cells Urine Bacteria Ur Culture Indicated? Preliminary micro results at discharge 08/20/21 18:16 Blood Culture - Preliminary Blood 08/20/21 18:11 Blood Culture - Preliminary Blood Discharge Plan Patient/Caregiver Discharge Instructions Activity: increase activity as tolerated Diet: Consistent Carbohydrate Activity Restrictions/Additional Instructions: Referral to see psychiatrist in 1-2 weeks for depression/anxiety & multiple admissions for DKA > question desire for adherence. Follow-up with your Software Licensing Specialist in 3 to 7 days. Prescriptions: Continued lisinopril 10 mg tablet 10 mg PO QDAY Qty: 90 1RF Rx Instructions: 1 tab QD noon, if no N/V or dehydration clonidine 0.2 mg/24 hr patch weekly 1 patch transdermal QWEEK Qty: 4 2RF insulin aspart U-100 [Novolog U-100 Insulin aspart] 100 unit/mL solution See Rx Instructions .ROUTE .COMPLEX 0RF Rx Instructions: use up to 70units daily via insulin pump atorvastatin 40 MG tablet 40 mg PO HS 0RF furosemide 20 mg Tablet 20 mg PO QAM PRN (Reason: Edema/hypertension) 0RF Rx Instructions: Take on days when you are not vomiting carvedilol 6.25 mg tablet 3.125 mg PO BID 0RF Rx Instructions: must administer with a meal/food fluoxetine 10 mg capsule 20 mg PO DAILY 0RF lorazepam 1 mg tablet 1 - 2 mg PO QDAY PRN (Reason: Anxiety) 0RF Follow Up Plan Follow up with: Flo Peña MD [Primary Care Provider] - Patient Disposition: Home, Self-Care Prognosis: Undetermined Overall status at discharge: patient is progressing back to baseline Discharge Orders: Discharge Order (Routine); Ordered 08/24/21 Ordered By: Deangelo Basilio [facility] VTE Deep Vein Thrombosis/Pulmonary Embolism Present on Admission: No
--- NOTE | 2021-08-22 11:08 | EKG ---
[facility] Test Date: 2021-08-22 Pat Name: Mauri Levine Department: ICU Room: 120D Gender: Male Web User Experience Strategist: 88 : 1985 Requested By: Deangelo Basilio Order Number: [id number] Reading MD: Yessi Mcduffie D.O. Measurements Intervals Warren Rate: 63 P: 50 NV: 131 QRS: 66 QRSD: 84 T: 128 QT: 514 QTc: 527 Interpretive Statements Sinus rhythm Nonspecific T wave changes Prolonged QT interval Electronically Signed On 08-22-2021 11:08:32 PST by Yessi Mcduffie D.O. /[id number]
[2021-08-22] MEDS: LORazepam 1 MG TABLET PO PRN (13:21)
[2021-08-22] MEDS: hydrALAZINE 20 MG/ML VIAL IV PRN ×2 (14:22→20:55)
[2021-08-22] MEDS ORDERED: FUROSEMIDE 20 MG TABLET PO PRN (14:30)
[2021-08-22] MEDS: CARVEDILOL 3.125 MG TABLET PO SCH (17:05)
[2021-08-22] MEDS: INSULIN LISPRO 1 UNIT/0.01 ML UNIT SQ SCH ×3 (17:06→22:55)
[2021-08-22] MEDS: FAMOTIDINE/PF 20 MG/2 ML VIAL IV SCH (20:17)
[2021-08-22] MEDS: ATORVASTATIN 40 MG TABLET PO SCH (20:17)
[2021-08-22] MEDS ORDERED: INSULIN LISPRO 1 UNIT/0.01 ML UNIT SQ ONE (23:00)
[2021-08-23] MEDS: INSULIN LISPRO 1 UNIT/0.01 ML UNIT SQ SCH ×8 (01:02→23:12)
[2021-08-23] MEDS ORDERED: INSULIN LISPRO 1 UNIT/0.01 ML UNIT SQ ONE ×3 (01:08→19:29)
[2021-08-23] MEDS ORDERED: DEXTROSE 50% 50 ML VIAL IV PRN (03:23)
[2021-08-23] MEDS ORDERED: DEXTROSE 31 GM ORAL.SUSP PO PRN (03:23)
[2021-08-23] MEDS ORDERED: INSULIN LISPRO 1 UNIT/0.01 ML UNIT SQ SCH (07:00)
[2021-08-23] MEDS ORDERED: DEXTROSE 50% 50 ML SYRINGE IV ONE (07:01)
--- NOTE | 2021-08-23 07:40 | Internal Med Progress Note ---
SUBJECTIVE Subjective Patient information: Note initiated : 08/23/21 at 7:39 am Service Date, if different from initiated Date: [] Patient: Mauri Leivne 35 y/o M admitted on 08/21/21 for DKA. Chief Complaint: [] Interval history: History of present illness: Mr. Levine is a 35 year old M Presents to the hospital with identical presentation to recent admissions (emphasis on plural). Patient ran out of insulin for his pump several days ago and says he did not think to replace it. He has a history of diabetes type 1 on insulin pump and gastroparesis Patient said he was planning to get assistance to make sure he keeps on track with his insulin regimen. Blood glucose in the ED was about 1162, his creatinine 4.9 Among his other lab normalities. Given IV insulin and started on a drip in the ED. Reactive leukocytosis. No acidosis on VBG or chemistry. 2/4 Nausea and vomiting several times overnight. Critical degree of HHS upon presentation. Improving slowly. 2/5 Patient still weak but feeling better. Able to tolerate liquid diet. Laboratory improving. Creatinine improving. Goal today is to get insulin pump on and eating and drinking, monitoring sugars and hopefully discharge in the morning. 2/6 Glucose over 500 last night. Either the pump not working the site bad or the basal rates too low. Patient says he was not running the pump where he usually does. We will have to monitor closely and adjust pump accordingly if necessary. Review of Systems: denies headache/fever/chills/chest or abdominal pain/cough/dyspnea/diarrhea. Otherwise see above. Constitutional Vitals: Vital Signs Temp Pulse Resp BP Pulse Ox 98 F 76 18 125/68 97 08/23/21 07:15 08/23/21 07:15 08/23/21 07:15 08/23/21 07:15 08/23/21 07:15 Period Temp Pulse Resp BP Sys/Menard Pulse Ox Last 24 Hr 98 F-99.6 F 65-83 16-31 117-191/61-89 96-100 Intake and Output 08/22/21 08/23/21 08/23/21 21:59 05:59 13:59 Intake Total 989.0909 480 Balance 989.0909 480 Weight 73.482 kg Intake & Output: Intake & Output 08/22/21 08/23/21 08/23/21 21:59 05:59 13:59 Intake Total 989.0909 480 Balance 989.0909 480 Weight 73.482 kg Intake: IV 509.0909 Potassium Phosphate 40 Meq In 509.0909 Dextrose 5% in Water 500 ml @ 127.273 mls/hr IV ONCE ONE Rx#: [id number] Oral 480 480 Other: Meal Lunch Percent of Meal Consumed 100% Feeding Ability Independent # Voids 3 Exam: General:Weak, No acute Distress Eyes/N/T: EOMI, Head/Neck: neck supple, CV: RRR, 2/6 SM, Pulm: Clear b/l, no wheezing/rhonchi/rales Abd: soft, nontender, +BS x4 Ext: no clubbing/cyanosis/edema Neuro: Lethargic but improved no focal deficits, moves all extremities, Skin: warm/dry OBJ DATA Labs CBC & Chem 7: 08/22/21 05:56 08/23/21 07:20 Labs: Abnormal Lab Results 08/22/21 08/22/21 08/21/21 05:56 05:56 14:27 WBC 11.6 H RBC 3.14 L Hgb 9.1 L Hct 27.3 L POC Hct MCHC MPV 12.3 H Neut % (Auto) Lymph % (Auto) Lymph # (Auto) [place] # (Auto) Seg Neutrophils % Lymphocytes % Absolute Neutrophils ABG Methemoglobin VBG pH VBG pCO2 VBG pO2 VBG HCO3 VBG Total CO2 VBG O2 Saturation VBG Base Excess Carboxyhemoglobin Total Hemoglobin POC Sodium Sodium 132 L Potassium POC Chloride Chloride 93 L Carbon Dioxide POC Total CO2 Anion Gap POC BUN BUN 35 H Creatinine 3.0 H POC Creatinine Glucose 244 H POC Glucose Random Glucose Osmolality 305 H Uric Acid Calcium 7.2 L POC WB Ioniz Calcium Phosphorus 1.9 L Magnesium 2.7 H Alkaline Phosphatase Lactate Dehydrogenase Total Protein 5.0 L Albumin 3.0 L Globulin 2.0 L Triglycerides Lipase Beta-Hydroxybutyrate Urine Protein Urine Glucose (UA) Urine Ketones Urine Occult Blood Urine Urobilinogen 08/21/21 08/21/21 08/21/21 14:27 10:50 06:53 WBC RBC Hgb Hct POC Hct MCHC MPV Neut % (Auto) Lymph % (Auto) Lymph # (Auto) [place] # (Auto) Seg Neutrophils % Lymphocytes % Absolute Neutrophils ABG Methemoglobin VBG pH VBG pCO2 VBG pO2 VBG HCO3 VBG Total CO2 VBG O2 Saturation VBG Base Excess Carboxyhemoglobin Total Hemoglobin POC Sodium Sodium 132 L Potassium 3.2 L POC Chloride Chloride 82 L Carbon Dioxide 40 H POC Total CO2 Anion Gap POC BUN BUN 54 H Creatinine 3.8 H POC Creatinine Glucose 207 H 688 H* POC Glucose Random Glucose Osmolality Uric Acid Calcium 6.7 L POC WB Ioniz Calcium Phosphorus Magnesium 3.1 H Alkaline Phosphatase Lactate Dehydrogenase Total Protein Albumin Globulin Triglycerides Lipase Beta-Hydroxybutyrate Urine Protein 30 A Urine Glucose (UA) 500(2+) A Urine Ketones 5(trace) A Urine Occult Blood 2+(moderate) A Urine Urobilinogen 2.0 A 08/21/21 08/21/21 08/21/21 05:29 05:10 05:10 WBC RBC Hgb Hct POC Hct 34 L MCHC MPV Neut % (Auto) Lymph % (Auto) Lymph # (Auto) [place] # (Auto) Seg Neutrophils % 86 H Lymphocytes % 8 L Absolute Neutrophils ABG Methemoglobin VBG pH VBG pCO2 VBG pO2 VBG HCO3 VBG Total CO2 VBG O2 Saturation VBG Base Excess Carboxyhemoglobin Total Hemoglobin POC Sodium 125 L Sodium 129 L Potassium POC Chloride 70 L Chloride 73 L Carbon Dioxide 42 H* POC Total CO2 43 H* Anion Gap POC BUN 59 H BUN 63 H Creatinine 4.3 H POC Creatinine 4.2 H Glucose 670 H* POC Glucose 656 H* Random Glucose Osmolality Uric Acid 9.2 H Calcium 6.6 L POC WB Ioniz Calcium 0.76 L Phosphorus 5.5 H Magnesium 3.7 H Alkaline Phosphatase Lactate Dehydrogenase Total Protein 5.5 L Albumin Globulin 2.1 L Triglycerides Lipase Beta-Hydroxybutyrate Urine Protein Urine Glucose (UA) Urine Ketones Urine Occult Blood Urine Urobilinogen 08/21/21 08/21/21 08/21/21 05:10 02:35 02:35 WBC 20.7 H RBC 3.71 L Hgb 10.7 L Hct 30.1 L POC Hct MCHC MPV 12.7 H Neut % (Auto) Lymph % (Auto) Lymph # (Auto) [place] # (Auto) Seg Neutrophils % Lymphocytes % Absolute Neutrophils ABG Methemoglobin 0.3 L VBG pH 7.53 H VBG pCO2 54.1 H VBG pO2 147.4 H VBG HCO3 44.5 H* VBG Total CO2 46.2 H* VBG O2 Saturation 90.1 H VBG Base Excess 19 H Carboxyhemoglobin 8.6 H Total Hemoglobin 10.5 L POC Sodium Sodium Potassium POC Chloride Chloride Carbon Dioxide POC Total CO2 Anion Gap POC BUN BUN Creatinine POC Creatinine Glucose POC Glucose Random Glucose 832 H* Osmolality Uric Acid Calcium POC WB Ioniz Calcium Phosphorus Magnesium Alkaline Phosphatase Lactate Dehydrogenase Total Protein Albumin Globulin Triglycerides Lipase Beta-Hydroxybutyrate Urine Protein Urine Glucose (UA) Urine Ketones Urine Occult Blood Urine Urobilinogen 08/21/21 08/21/21 08/20/21 02:35 00:36 22:36 WBC RBC Hgb Hct POC Hct MCHC MPV Neut % (Auto) Lymph % (Auto) Lymph # (Auto) [place] # (Auto) Seg Neutrophils % Lymphocytes % Absolute Neutrophils ABG Methemoglobin VBG pH VBG pCO2 VBG pO2 VBG HCO3 VBG Total CO2 VBG O2 Saturation VBG Base Excess Carboxyhemoglobin Total Hemoglobin POC Sodium Sodium 127 L Potassium POC Chloride Chloride 68 L Carbon Dioxide 38 H POC Total CO2 Anion Gap 21.0 H POC BUN BUN Creatinine POC Creatinine Glucose POC Glucose Random Glucose 1029 H* 1237 H* Osmolality Uric Acid Calcium POC WB Ioniz Calcium Phosphorus Magnesium 3.8 H Alkaline Phosphatase Lactate Dehydrogenase Total Protein Albumin Globulin Triglycerides Lipase Beta-Hydroxybutyrate Urine Protein Urine Glucose (UA) Urine Ketones Urine Occult Blood Urine Urobilinogen 08/20/21 08/20/21 08/20/21 22:36 20:35 18:30 WBC RBC Hgb Hct POC Hct MCHC MPV Neut % (Auto) Lymph % (Auto) Lymph # (Auto) [place] # (Auto) Seg Neutrophils % Lymphocytes % Absolute Neutrophils ABG Methemoglobin 0.3 L 0.3 L VBG pH 7.43 H 7.48 H VBG pCO2 52.2 H VBG pO2 107.4 H 78.6 H VBG HCO3 34.0 H VBG Total CO2 35.6 H VBG O2 Saturation 91.8 H 89.0 H VBG Base Excess 8 H Carboxyhemoglobin 5.8 H 6.9 H Total Hemoglobin 11.1 L 11.9 L POC Sodium Sodium Potassium POC Chloride Chloride Carbon Dioxide POC Total CO2 Anion Gap POC BUN BUN Creatinine POC Creatinine Glucose POC Glucose Random Glucose 1414 H* Osmolality Uric Acid Calcium POC WB Ioniz Calcium Phosphorus Magnesium Alkaline Phosphatase Lactate Dehydrogenase Total Protein Albumin Globulin Triglycerides Lipase Beta-Hydroxybutyrate Urine Protein Urine Glucose (UA) Urine Ketones Urine Occult Blood Urine Urobilinogen 08/20/21 08/20/21 08/20/21 18:30 18:22 18:19 WBC RBC Hgb Hct POC Hct MCHC MPV Neut % (Auto) Lymph % (Auto) Lymph # (Auto) [place] # (Auto) Seg Neutrophils % Lymphocytes % Absolute Neutrophils ABG Methemoglobin VBG pH VBG pCO2 VBG pO2 VBG HCO3 VBG Total CO2 VBG O2 Saturation VBG Base Excess Carboxyhemoglobin Total Hemoglobin POC Sodium Sodium 112 L* Potassium 5.2 H POC Chloride Chloride < 60 L Carbon Dioxide POC Total CO2 Anion Gap 29.0 H POC BUN BUN 65 H Creatinine 4.7 H POC Creatinine Glucose POC Glucose Random Glucose Osmolality 374 H Uric Acid 8.9 H Calcium 7.6 L POC WB Ioniz Calcium Phosphorus 11.4 H* Magnesium 3.4 H 3.5 H Alkaline Phosphatase 124 H Lactate Dehydrogenase 266 H Total Protein Albumin Globulin Triglycerides 179 H Lipase Beta-Hydroxybutyrate Urine Protein Urine Glucose (UA) Urine Ketones Urine Occult Blood Urine Urobilinogen 08/20/21 08/20/21 08/20/21 18:16 16:09 16:09 WBC 15.0 H RBC 4.23 L Hgb 12.3 L Hct POC Hct MCHC 30.1 L MPV 13.9 H Neut % (Auto) 85.9 H Lymph % (Auto) 6.3 L Lymph # (Auto) 0.94 L [place] # (Auto) 1.16 H Seg Neutrophils % Lymphocytes % Absolute Neutrophils 12.90 H ABG Methemoglobin VBG pH VBG pCO2 VBG pO2 VBG HCO3 VBG Total CO2 VBG O2 Saturation VBG Base Excess Carboxyhemoglobin Total Hemoglobin POC Sodium Sodium 111 L* Potassium POC Chloride Chloride < 60 L Carbon Dioxide POC Total CO2 Anion Gap 28.0 H POC BUN BUN 69 H Creatinine 4.9 H POC Creatinine Glucose POC Glucose Random Glucose Osmolality Uric Acid Calcium 7.6 L POC WB Ioniz Calcium Phosphorus Magnesium Alkaline Phosphatase 126 H Lactate Dehydrogenase Total Protein Albumin Globulin Triglycerides Lipase 135 H Beta-Hydroxybutyrate 15.22 H Urine Protein Urine Glucose (UA) Urine Ketones Urine Occult Blood Urine Urobilinogen Meds: Medications Acetaminophen (Acetaminophen 325 Mg Tablet) 650 mg PO Q4-6HP PRN; Protocol PRN Reason: Per Pain Protocol/Fever > 101 Atorvastatin Calcium (Atorvastatin 40 Mg Tablet) 40 mg PO HS [facility] Last Admin: 08/22/21 20:17 Dose: 40 mg Documented by: Carvedilol (Carvedilol 3.125 Mg Tablet) 3.125 mg PO BIDCC [facility] Last Admin: 08/22/21 17:05 Dose: 3.125 mg Documented by: Clonidine HCl (Clonidine Tts 2 1 Patch Patch) 1 patch TD Sa@0900 [facility] Last Admin: 08/22/21 10:02 Dose: 1 patch Documented by: Dextrose (Dextrose 50% 50 Ml Vial) 0 ml IV UD PRN PRN Reason: Hypoglycemia Diagnostic Test (Pha) (Accu-Chek 1 Each Strip) 1 each FS Q4H [facility] Last Admin: 08/23/21 07:05 Dose: 1 each Documented by: Enoxaparin Sodium (Enoxaparin 40 Mg/0.4 Ml Syringe) 40 mg SQ DAILY [facility] Last Admin: 08/22/21 09:07 Dose: 40 mg Documented by: Famotidine (Famotidine/Pf 20 Mg/2 Ml Vial) 20 mg IV HS [facility] Last Admin: 08/22/21 20:17 Dose: 20 mg Documented by: Fluoxetine HCl (Fluoxetine Hcl 20 Mg Capsule) 20 mg PO DAILY [facility] Last Admin: 08/22/21 09:07 Dose: 20 mg Documented by: Furosemide (Furosemide 20 Mg Tablet) 20 mg PO DAILYP PRN PRN Reason: Edema/hypertension Glucose (Dextrose 31 Gm Oral.Susp) 15 gm PO PRN PRN PRN Reason: Hypoglycemia Heparin Sodium (Porcine) (Heparin Flush 10 Units/Ml 5 Ml Syringe) 2 ml IV Q12 [facility] Hydralazine HCl (Hydralazine 20 Mg/Ml Vial) 0 mg IV Q2HP PRN PRN Reason: Hypertension Last Admin: 08/22/21 20:55 Dose: 20 mg Documented by: Potassium Chloride 40 meq/ (Dextrose) 520 mls @ 130 mls/hr IV UD PRN PRN Reason: K+ < 3.0 Magnesium Sulfate (Magnesium Sulfate) 2 gm in 50 mls @ 25 mls/hr IV UD PRN PRN Reason: Magnesium </= 1.6 Insulin Human Lispro (Insulin Lispro 1 Unit/0.01 Ml Unit) 0 unit SQ Q4H [facility]; Protocol Last Admin: 08/23/21 07:05 Dose: Not Given Documented by: Labetalol HCl (Labetalol 5 Mg/Ml Ml) 0 mg IV Q2HP PRN PRN Reason: Hypertension Lisinopril (Lisinopril 10 Mg Tablet) 10 mg PO QDAY [facility] Lorazepam (Lorazepam 2 Mg/Ml Vial) 0.5 mg IV Q2-4HP PRN PRN Reason: Anxiety/Sedation/NAUSEA Last Admin: 08/22/21 23:00 Dose: 0.5 mg Documented by: Lorazepam (Lorazepam 1 Mg Tablet) 1 - 2 mg PO DAILYP PRN PRN Reason: ANXIETY/SEDATION Last Admin: 08/22/21 13:21 Dose: 1 mg Documented by: Potassium Chloride (Potassium Chloride 20 Meq Tablet) 20 meq PO UD PRN PRN Reason: K+ < 3.0 Potassium Chloride (Potassium Chloride 20 Meq Tablet) 40 meq PO UD PRN PRN Reason: K+ = 3-3.5 Last Admin: 08/21/21 04:14 Dose: 40 meq Documented by: Scopolamine (Scopolamine 1 Patch Patch) 1 patch TOPICAL Q72H [facility] Last Admin: 08/20/21 23:04 Dose: 1 patch Documented by: Sodium Chloride (0.9 % Sodium Chloride 10 Ml Syringe) 10 ml IV Q12 [facility] ABG Interpretation ABG results: 08/20/21 08/20/21 08/21/21 18:30 22:36 02:35 ABG Methemoglobin 0.3 L 0.3 L 0.3 L VBG pH 7.48 H 7.43 H 7.53 H VBG pCO2 TNP 52.2 H 54.1 H VBG pO2 78.6 H 107.4 H 147.4 H VBG HCO3 TNP 34.0 H 44.5 H* VBG Total CO2 TNP 35.6 H 46.2 H* VBG O2 Saturation 89.0 H 91.8 H 90.1 H VBG Base Excess TNP 8 H 19 H A/P Narrative A/P Narrative: A: *HHS-DKA overlap, Severe: *DMI with Gastroparesis/Neuropathy: labile BG -A1c 8.9 (June) *Hypotension from Severe Hypovolemia: low normal but stable *Corrected Sodium on admit 128: *ROSALIO on CKD IIIb-IV: Follows with Dr. Mills -improved *Anemia, chronic: *HTN: On coreg/clonidine/lisinopril *Anxiety/depression: med list both Fluoxetine and Fluvoxamine, will have to clarify *Long QT Syndrome: noted on EKG's since 2019. Pt is on SSRI *GERD: P: -back on insulin pump, but glucose not controlled. Will need to adjust basal rate or make sure pump is working correctly -Monitor electrolytes and replace - advance diet as able to gastroparesis diet (low fat, soluble fiber) -Antiemetics that won't prolong QT (Scopolamine,Benzodiazepines, Dexamethasone) -restart home BP meds. clonidine/BB, restart ACEI once renal fxn at baseline, IV prn BP meds -home med reconciliation, clarify if actually taking two SSRI's -ppx: Lovenox/H2 Time Spent With Patient Time: Total time spent is greater than 50% in coordination of care (as documented) at patient's floor/unit and/or counseling patient: QUALITY Stroke Symptom Onset Unknown: No VTE Deep Vein Thrombosis/Pulmonary Embolism Present on Admission: No
[2021-08-23] MEDS: FLUoxetine HCL 20 MG CAPSULE PO SCH (08:21)
[2021-08-23] MEDS: LISINOPRIL 10 MG TABLET PO SCH (08:21)
[2021-08-23] MEDS: ENOXAPARIN 40 MG/0.4 ML SYRINGE SQ SCH (08:21)
[2021-08-23] MEDS: CARVEDILOL 3.125 MG TABLET PO SCH ×2 (08:21→17:05)
[2021-08-23] MEDS: 0.9 % SODIUM CHLORIDE 10 ML SYRINGE IV SCH ×2 (08:28→21:07)
[2021-08-23 08:51] LABS: ALT/SGPT 14 U/L (<40); AST/SGOT 13 U/L (<40); Albumin 3.1 gm/dL (3.2-5.2); Albumin/Globulin Ratio 1.1 (1.0-2.3); Alkaline Phosphatase 82 U/L (39-117); Bilirubin,Direct < 0.2 mg/dL (0-0.3); Bilirubin,Total 0.4 mg/dL (0.1-1.0); Blood Urea Nitrogen 30 mg/dL (6-20); Calcium 8.2 mg/dL (8.6-10.4); Carbon Dioxide 27 mmol/L (22-30); Chloride 98 mmol/L (96-108); Globulin 2.7 gm/dL (2.2-3.7); Glomerular Filtration Rate 36; Glucose 190 mg/dL (70-105); Lactate Dehydrogenase 225 U/L (135-225); Phosphorous 3.8 mg/dL (2.5-4.5); Triglycerides 83 mg/dL (<150); Uric Acid 6.2 mg/dL (2.5-8.0)
[2021-08-23] MEDS: LORazepam 1 MG TABLET PO PRN (13:50)
--- NOTE | 2021-08-23 20:24 | Event Note ---
Event Note Event Note: Insulin over the course of ~24hr: According to insulin pump rosario has used 22 basal, 24 bolus, 3 food bolus = 49 units. We have given him 39 units (not counting the 18 unit bolus dosing we gave based on a high sliding scale that caused a single episode of hypoglycemia). Reducing the 39 units by 20% in order to convert Injections to continuous infusion = 31.2. or rounding to 31. Total daily dose (TDD) is 49+31= 80 units. Therefore basal dosing at 40% of TDD = 32 U. Basal Unit per hour = 32/24= 1.3 U/hr & 48 U for bolus dosing meals/etc.. or at 50% TDD = 40 U. Unit per hour = 40/24 = 1.6 U/hr & 40 U for bolus dosing meals/etc...
[2021-08-23] MEDS: hydrALAZINE 20 MG/ML VIAL IV PRN (21:06)
[2021-08-23] MEDS: FAMOTIDINE/PF 20 MG/2 ML VIAL IV SCH (21:06)
[2021-08-23] MEDS: ATORVASTATIN 40 MG TABLET PO SCH (21:06)
[2021-08-23] MEDS: SCOPOLAMINE 1 PATCH PATCH TOPICAL SCH (21:07)
[2021-08-23] MEDS: LORazepam 2 MG/ML VIAL IV PRN (21:20)
[2021-08-24] MEDS: INSULIN LISPRO 1 UNIT/0.01 ML UNIT SQ SCH ×7 (01:05→13:59)
[2021-08-24] MEDS: CARVEDILOL 3.125 MG TABLET PO SCH (07:02)
--- NOTE | 2021-08-24 07:20 | Internal Med Progress Note ---
SUBJECTIVE Subjective Patient information: Note initiated : 08/24/21 at 7:17 am Service Date, if different from initiated Date: [] Patient: Mauri Levine a 35 y/o M admitted on 08/21/21 for DKA. Chief Complaint: [] Interval history: History of present illness: Mr. Levine is a 35 year old M Presents to the hospital with identical presentation to recent admissions (emphasis on plural). Patient ran out of insulin for his pump several days ago and says he did not think to replace it. He has a history of diabetes type 1 on insulin pump and gastroparesis Patient said he was planning to get assistance to make sure he keeps on track with his insulin regimen. Blood glucose in the ED was about 1162, his creatinine 4.9 Among his other lab normalities. Given IV insulin and started on a drip in the ED. Reactive leukocytosis. No acidosis on VBG or chemistry. 2/4 Nausea and vomiting several times overnight. Critical degree of HHS upon presentation. Improving slowly. 2/5 Patient still weak but feeling better. Able to tolerate liquid diet. Laboratory improving. Creatinine improving. Goal today is to get insulin pump on and eating and drinking, monitoring sugars and hopefully discharge in the morning. 2/6 Glucose over 500 last night. Either the pump not working the site bad or the basal rates too low. Patient says he was not running the pump where he usually does. We will have to monitor closely and adjust pump accordingly if necessary. 2/7 Glucose went extremely high again last night after letting patient manage his own pump throughout the day. Had to cover Pt difficult to treat, not allowing us to give extra insulin when his glucose is 264. Patient says it is worse because he is anxious from being in here. Patient feels confident he can keep blood glucose controlled as he does at home once he is discharged. Review of Systems: denies headache/fever/chills/chest or abdominal pain/cough/dyspnea/diarrhea. Otherwise see above. Constitutional Vitals: Vital Signs Temp Pulse Resp BP Pulse Ox 98.7 F 69 16 138/75 97 08/24/21 03:21 08/24/21 03:21 08/24/21 03:21 08/24/21 03:21 08/24/21 03:21 Period Temp Pulse Resp BP Sys/Menard Pulse Ox Last 24 Hr 97.3 F-100.1 F 66-84 16-20 98-175/56-82 95-99 Intake and Output 08/23/21 08/24/21 08/24/21 21:59 05:59 13:59 Intake Total 480 550 Balance 480 550 Weight 71.804 kg Intake & Output: Intake & Output 08/23/21 08/24/21 08/24/21 21:59 05:59 13:59 Intake Total 480 550 Balance 480 550 Weight 71.804 kg Intake: Oral 480 550 Other: # Voids 3 4 Exam: General:Awake, No acute Distress Eyes/N/T: EOMI, Head/Neck: neck supple, CV: RRR, 2/6 SM, Pulm: Clear b/l, no wheezing/rhonchi/rales Abd: soft, nontender, +BS x4 Ext: no clubbing/cyanosis/edema Neuro: Alert and awake, moves all extremities, agitated at times Skin: warm/dry OBJ DATA Labs CBC & Chem 7: 08/22/21 05:56 08/23/21 07:20 Labs: Abnormal Lab Results 08/23/21 08/22/21 08/22/21 07:20 05:56 05:56 WBC 11.6 H RBC 3.14 L Hgb 9.1 L Hct 27.3 L MPV 12.3 H Seg Neutrophils % Lymphocytes % Sodium 132 L Potassium Chloride 93 L Carbon Dioxide BUN 30 H 35 H Creatinine 2.3 H 3.0 H Glucose 190 H 244 H Osmolality Uric Acid Calcium 8.2 L 7.2 L Phosphorus 1.9 L Magnesium 2.7 H Total Protein 5.8 L 5.0 L Albumin 3.1 L 3.0 L Globulin 2.0 L Urine Protein Urine Glucose (UA) Urine Ketones Urine Occult Blood Urine Urobilinogen 08/21/21 08/21/21 08/21/21 14:27 14:27 10:50 WBC RBC Hgb Hct MPV Seg Neutrophils % Lymphocytes % Sodium 132 L Potassium 3.2 L Chloride 82 L Carbon Dioxide 40 H BUN 54 H Creatinine 3.8 H Glucose 207 H Osmolality 305 H Uric Acid Calcium 6.7 L Phosphorus Magnesium 3.1 H Total Protein Albumin Globulin Urine Protein 30 A Urine Glucose (UA) 500(2+) A Urine Ketones 5(trace) A Urine Occult Blood 2+(moderate) A Urine Urobilinogen 2.0 A 08/21/21 08/21/21 08/21/21 06:53 05:10 05:10 WBC RBC Hgb Hct MPV Seg Neutrophils % 86 H Lymphocytes % 8 L Sodium 129 L Potassium Chloride 73 L Carbon Dioxide 42 H* BUN 63 H Creatinine 4.3 H Glucose 688 H* 670 H* Osmolality Uric Acid 9.2 H Calcium 6.6 L Phosphorus 5.5 H Magnesium 3.7 H Total Protein 5.5 L Albumin Globulin 2.1 L Urine Protein Urine Glucose (UA) Urine Ketones Urine Occult Blood Urine Urobilinogen 08/21/21 05:10 WBC 20.7 H RBC 3.71 L Hgb 10.7 L Hct 30.1 L MPV 12.7 H Seg Neutrophils % Lymphocytes % Sodium Potassium Chloride Carbon Dioxide BUN Creatinine Glucose Osmolality Uric Acid Calcium Phosphorus Magnesium Total Protein Albumin Globulin Urine Protein Urine Glucose (UA) Urine Ketones Urine Occult Blood Urine Urobilinogen Meds: Medications Acetaminophen (Acetaminophen 325 Mg Tablet) 650 mg PO Q4-6HP PRN; Protocol PRN Reason: Per Pain Protocol/Fever > 101 Atorvastatin Calcium (Atorvastatin 40 Mg Tablet) 40 mg PO [facility] Last Admin: 08/23/21 21:06 Dose: 40 mg Documented by: Carvedilol (Carvedilol 3.125 Mg Tablet) 3.125 mg PO BIDCC [facility] Last Admin: 08/24/21 07:02 Dose: 3.125 mg Documented by: Clonidine HCl (Clonidine Tts 2 1 Patch Patch) 1 patch TD Sa@0900 [facility] Last Admin: 08/22/21 10:02 Dose: 1 patch Documented by: Dextrose (Dextrose 50% 50 Ml Vial) 0 ml IV UD PRN PRN Reason: Hypoglycemia Diagnostic Test (Pha) (Accu-Chek 1 Each Strip) 1 each FS Q2H [facility] Last Admin: 08/24/21 06:00 Dose: 1 each Documented by: Enoxaparin Sodium (Enoxaparin 40 Mg/0.4 Ml Syringe) 40 mg SQ DAILY [facility] Last Admin: 08/23/21 08:21 Dose: 40 mg Documented by: Famotidine (Famotidine/Pf 20 Mg/2 Ml Vial) 20 mg IV HS [facility] Last Admin: 08/23/21 21:06 Dose: 20 mg Documented by: Fluoxetine HCl (Fluoxetine Hcl 20 Mg Capsule) 20 mg PO DAILY [facility] Last Admin: 08/23/21 08:21 Dose: 20 mg Documented by: Furosemide (Furosemide 20 Mg Tablet) 20 mg PO DAILYP PRN PRN Reason: Edema/hypertension Glucose (Dextrose 31 Gm Oral.Susp) 15 gm PO PRN PRN PRN Reason: Hypoglycemia Heparin Sodium (Porcine) (Heparin Flush 10 Units/Ml 5 Ml Syringe) 2 ml IV Q12 [facility] Last Admin: 08/23/21 21:07 Dose: 2 ml Documented by: Hydralazine HCl (Hydralazine 20 Mg/Ml Vial) 0 mg IV Q2HP PRN PRN Reason: Hypertension Last Admin: 08/23/21 21:06 Dose: 20 mg Documented by: Potassium Chloride 40 meq/ (Dextrose) 520 mls @ 130 mls/hr IV UD PRN PRN Reason: K+ < 3.0 Magnesium Sulfate (Magnesium Sulfate) 2 gm in 50 mls @ 25 mls/hr IV UD PRN PRN Reason: Magnesium </= 1.6 Insulin Human Lispro (Insulin Lispro 1 Unit/0.01 Ml Unit) 0 unit SQ Q2H [facility]; Protocol Last Admin: 08/24/21 06:01 Dose: Not Given Documented by: Labetalol HCl (Labetalol 5 Mg/Ml Ml) 0 mg IV Q2HP PRN PRN Reason: Hypertension Lisinopril (Lisinopril 10 Mg Tablet) 10 mg PO QDAY [facility] Last Admin: 08/23/21 08:21 Dose: 10 mg Documented by: Lorazepam (Lorazepam 2 Mg/Ml Vial) 0.5 mg IV Q2-4HP PRN PRN Reason: Anxiety/Sedation/NAUSEA Last Admin: 08/23/21 21:20 Dose: 0.5 mg Documented by: Lorazepam (Lorazepam 1 Mg Tablet) 1 - 2 mg PO DAILYP PRN PRN Reason: ANXIETY/SEDATION Last Admin: 08/23/21 13:50 Dose: 1 mg Documented by: Potassium Chloride (Potassium Chloride 20 Meq Tablet) 20 meq PO UD PRN PRN Reason: K+ < 3.0 Potassium Chloride (Potassium Chloride 20 Meq Tablet) 40 meq PO UD PRN PRN Reason: K+ = 3-3.5 Last Admin: 08/21/21 04:14 Dose: 40 meq Documented by: Scopolamine (Scopolamine 1 Patch Patch) 1 patch TOPICAL Q72H [facility] Last Admin: 08/23/21 21:07 Dose: 1 patch Documented by: Sodium Chloride (0.9 % Sodium Chloride 10 Ml Syringe) 10 ml IV Q12 [facility] Last Admin: 08/23/21 21:07 Dose: 10 ml Documented by: ABG Interpretation ABG results: 08/20/21 08/20/21 08/21/21 18:30 22:36 02:35 ABG Methemoglobin 0.3 L 0.3 L 0.3 L VBG pH 7.48 H 7.43 H 7.53 H VBG pCO2 TNP 52.2 H 54.1 H VBG pO2 78.6 H 107.4 H 147.4 H VBG HCO3 TNP 34.0 H 44.5 H* VBG Total CO2 TNP 35.6 H 46.2 H* VBG O2 Saturation 89.0 H 91.8 H 90.1 H VBG Base Excess TNP 8 H 19 H A/P Narrative A/P Narrative: A: *HHS-DKA overlap, Severe: -difficult to manage as he refuses extra coverage sometimes *DMI with Gastroparesis/Neuropathy: labile BG -A1c 8.9 (June) *Hypotension from Severe Hypovolemia: low normal but stable *Corrected Sodium on admit 128: *ROSALIO on CKD IIIb-IV: Follows with Dr. Mills -improved *Anemia, chronic: *HTN: On coreg/clonidine/lisinopril *Anxiety/depression: med list both Fluoxetine and Fluvoxamine, will have to clarify *Long QT Syndrome: noted on EKG's since 2019. Pt is on SSRI *GERD: P: -back on insulin pump, but glucose not controlled and it is difficult as he does not entirely cooperate with us trying to give extra coverage. He states he can manage his own pump at home quite well. -He refuses to let us adjust basal rate even though he is using over 80U/day. current basal rate is 24U/day, he likely needs the basal rate to be 32U/day. -Monitor electrolytes and replace - advance diet as able to gastroparesis diet (low fat, soluble fiber) -Antiemetics that won't prolong QT (Scopolamine,Benzodiazepines, Dexamethasone) -restart home BP meds. clonidine/BB, restart ACEI once renal fxn at baseline, IV prn BP meds -home med reconciliation, clarify if actually taking two SSRI's -I Would recommend that the next time pt comes to ED that he be Transferred to facility with [facility]. -ppx: Lovenox/H2 Time Spent With Patient Time: Total time spent is greater than 50% in coordination of care (as documented) at patient's floor/unit and/or counseling patient: QUALITY Stroke Symptom Onset Unknown: No VTE Deep Vein Thrombosis/Pulmonary Embolism Present on Admission: No
[2021-08-24] MEDS: hydrALAZINE 20 MG/ML VIAL IV PRN (07:26)
[2021-08-24] MEDS: FLUoxetine HCL 20 MG CAPSULE PO SCH (08:59)
[2021-08-24] MEDS: LISINOPRIL 10 MG TABLET PO SCH (08:59)
[2021-08-24] MEDS: ENOXAPARIN 40 MG/0.4 ML SYRINGE SQ SCH (08:59)
[2021-08-24] MEDS: 0.9 % SODIUM CHLORIDE 10 ML SYRINGE IV SCH (09:05)
[2021-08-24] MEDS ORDERED: MAG HYDROX/AL HYDROX/SIMETH 30 ML ORAL.SUSP PO PRN (10:04)
[2021-08-24] MEDS: LORazepam 1 MG TABLET PO PRN (10:12)
[2021-08-24] MEDS ORDERED: HEPARIN SODIUM,PORCINE/PF 500 UNIT/5 ML SYRINGE IV ONE ×2 (14:31→14:41)
== END 2021-08-24 14:45 | disposition home or self-care (01) | DRG 637 ==
LOC: ED 15:48 → ICU 15:48 → MEDSUR 08-22 15:35
PROVIDERS: ADMIT Internal Medicine; ATTEND Internal Medicine

== ENCOUNTER 2021-09-11 14:55 | Observation (INO) ==
[2021-09-11] MEDS ORDERED: LACTATED RINGERS 1,000 ML IV ONE ×2 (15:00)
[2021-09-11] MEDS ORDERED: ONDANSETRON 4 MG ODT TABLET SL ONE (15:00)
--- NOTE | 2021-09-11 15:04 | Emergency Department Note ---
ED Note Addendum Note Addendum: I performed a brief screening exam and placed orders to facilitate patient care, anticipating a more comprehensive exam by another provider or me later in the patient's emergency department stay. Patient is complaining of symptoms consistent with prior episodes of gastroparesis. On my initial exam, he appears uncomfortable with dry mucous membranes.
[2021-09-11 15:43] LABS: POC Blood Urea Nitrogen 40 mg/dL (6-20); POC CO2 22 mmol/L (22-30); POC Chloride 69 mEq/L (96-108); POC Creatinine 2.4 mg/dL (0.6-1.2); POC Glucose, Random > 700 mg/dL; POC Hematocrit 42 % (41-55); POC Sodium 116 mEq/L (133-145)
[2021-09-11 15:53] LABS: ABG Methemoglobin 0.1 % (0.4-1.5); Total Hemoglobin 11.4 gm/Dl (13.5-16.5); VBG Base Excess -5 (-2-3); VBG HCO3 21.6 mmol/L (24.0-28.0); VBG Oxygen Saturation 76.2 % (40.0-70.0); VBG PH 7.28 U (7.32-7.42); VBG PO2 50.1 mmHg (25.0-40.0); VBG Total CO2 23.1 mmol/L (25.0-29.0)
[2021-09-11 15:55] LABS: Basophils # (Auto) 0.06 K/mcL (0.00-0.30); Basophils % (Auto) 0.5 % (0.0-2.0); Eosinophils # (Auto) 0 K/mcL (0.00-0.70); Eosinophils % (Auto) 0 % (0.0-7.0); Hematocrit 42.1 % (40.1-51.0); Hemoglobin 11.7 g/dL (13.7-17.5); Lymphocytes # (Auto) 0.58 K/mcL (1.50-4.80); Lymphocytes % (Auto) 4.5 % (15.5-49.0); Mean Corpuscular HGB Conc 27.8 g/dL (31.0-36.0); Mean Platelet Volume 11.2 fL (7.4-10.4); Monocytes # (Auto) 0.32 K/mcL (0.10-0.90); Monocytes % (Auto) 2.5 % (1.0-12.0); Neutrophils % (Auto) 92.5 % (38.0-78.0); Platelet Count 392 K/mcL (140-440); RBC 4.05 M/mcL (4.63-6.08); Red Cell Distribution Width 13.8 % (11.5-14.5); WBC 12.9 K/mcL (4.5-11.0)
[2021-09-11] MEDS ORDERED: HALOPERIDOL LACTATE 5 MG/ML VIAL IV ONE (16:05)
--- NOTE | 2021-09-11 16:11 | Emergency Department Note ---
Nausea/Vomiting/Diarrhea HPI General Chief complaint: Nausea/Vomiting/Diarrhea Stated complaint: Nausea/Vomiting Time Seen by Provider: 09/11/21 15:00 Source: patient Mode of arrival: wheelchair Limitations: no limitations History of Present Illness HPI Narrative: Patient is a 35-year-old gentleman who arrives emergency department by private vehicle accompanied by his father complaining of nausea and vomiting. Patient says he has been having nausea and vomiting for the past 2 days. This is gradual in onset and has been progressively worsening. He has been vomiting clear emesis without any dark or bloody emesis. He has had a few episodes of diarrhea as well. He has poorly localized abdominal pain associated with his symptoms. Patient has had similar symptoms several times in the past due to diabetic gastroparesis. His sugars have been very irregular lately. He notes he last replaced his insulin pump infusion site about a day and a half ago. Related Data Home Medications Medication Instructions Recorded Confirmed atorvastatin 40 mg tablet 40 mg PO HS 02/13/19 08/27/21 insulin aspart U-100 100 unit/mL See Rx Instructions .ROUTE .COMPLEX 03/26/21 08/27/21 subcutaneous solution (Novolog U-100 Insulin aspart) furosemide 20 mg tablet 20 mg PO QAM PRN 08/03/21 08/27/21 carvedilol 6.25 mg tablet 3.125 mg PO BID 08/21/21 08/27/21 fluoxetine 10 mg capsule 20 mg PO DAILY 08/21/21 08/27/21 lorazepam 1 mg tablet 1 - 2 mg PO QDAY PRN 08/21/21 08/27/21 Previous Rx's Medication Instructions Recorded clonidine 0.2 mg/24 hr weekly 1 patch TRANSDERMAL QWEEK #4 ea 03/26/21 transdermal patch lisinopril 10 mg tablet 10 mg PO QDAY #90 tab 07/01/21 Dexcom sensor & monitor #1 ea 08/27/21 ondansetron 4 mg disintegrating 4 mg PO Q8H PRN #14 tab 08/28/21 tablet acetone (urine) test (Ketone Urine #100 ea 09/10/21 Test) blood sugar diagnostic (Blood #500 ea 09/10/21 Glucose Test) blood-glucose meter #1 ea 09/10/21 glucagon 3 mg/actuation nasal spray 3 mg INTRANASAL ONCE PRN #2 ea 02/24/22 lancets #500 ea 09/10/21 Allergies Allergy/AdvReac Type Severity Reaction Status Date / Time NSAIDS (Non-Steroidal Allergy Unknown Unknown Verified 08/27/21 11:39 Anti-Inflamma metoclopramide [From Reglan] AdvReac Mild Agitated Verified 08/27/21 11:39 prochlorperazine AdvReac Mild "My whole Verified 08/27/21 11:39 [From Compazine] body freaks out." silver AdvReac Mild dystonic Verified 08/27/21 11:39 IV iodine contrast Allergy Unknown Unknown Uncoded 08/27/21 11:39 Review of Systems ROS ROS Narrative: Narrative: All systems ED: reviewed and negative except as stated. Constitutional: Denies fever or chills Respiratory: Denies shortness of breath or cough PFSH Narrative Patient History Narrative: Narrative: Medical/Surgical/Family History All Active Problems (Updated 09/11/21 @ 17:52 by David Woods DO) Diabetic gastroparesis (Acute) Metabolic alkalosis (Acute) Testosterone deficiency (Chronic) Nausea and vomiting (Chronic) GERD (gastroesophageal reflux disease) (Chronic) Other hammer toe(s) (acquired), left foot (Chronic) Hypertension, essential (Chronic) Hyperlipidemia (Chronic) History of neuroleptic malignant syndrome (Chronic) Dehydration (Acute) Drug-induced nausea and vomiting (Acute) Uncontrolled type 1 diabetes mellitus with diabetic nephropathy, with long-term current use of insulin (Chronic) Cyclic vomiting syndrome (Chronic) Type 1 diabetes mellitus with stage 3 chronic kidney disease and hypertension (Chronic) Marijuana use, continuous (Chronic) CKD (chronic kidney disease) (Acute) Nephrotic range proteinuria (Chronic) Controlled type 1 diabetes mellitus with chronic kidney disease (Chronic) Port-A-Cath in place (Acute) Diabetic gastroparesis associated with type 1 diabetes mellitus (Chronic) Diabetic neuropathy associated with type 1 diabetes mellitus (Chronic) Diabetic retinopathy associated with type 1 diabetes mellitus (Chronic) Anxiety (Chronic) Back pain (Chronic) Physical deconditioning (Chronic) Malnutrition (Chronic) Acute dehydration (Acute) Acute hypokalemia (Acute) QT prolongation (Acute) Dehydration (Acute) No-show for appointment (Acute) Intractable cyclical vomiting with nausea (Acute) Diabetic gastroparesis (Acute) ROSALIO (acute kidney injury) (Acute) Hyperglycemia (Acute) Dehydration (Acute) Major depressive disorder, recurrent (Acute) Generalized anxiety disorder (Acute) Trauma and stressor-related disorder (Acute) Diabetic gastroparesis (Acute) Nausea & vomiting (Acute) Acute dehydration (Acute) Ketosis (Acute) Uncontrolled diabetes mellitus (Acute) DKA (diabetic ketoacidosis) (Acute) Hyperosmolar hyperglycemic state (HHS) (Acute) Medical History Abdominal pain, epigastric Anxiety Back pain Chronic ulcer of left foot Coffee ground emesis Diabetes mellitus type I Age 12, With foot ulcer Diabetic gastroparesis associated with type 1 diabetes mellitus Diabetic neuropathy associated with type 1 diabetes mellitus Diabetic peripheral neuropathy Diabetic retinopathy associated with type 1 diabetes mellitus DKA, type 1 Esophageal candidiasis Gastroenteritis Gastroparesis due to DM GERD (gastroesophageal reflux disease) Hallux valgus (acquired), left foot History of neuroleptic malignant syndrome To compazine (prochlorperazine). Tolerates promethazine without issue Hyperlipidemia Hypertension, essential labile due to unpredictable Rx absorption with gastroparesis and propensity for dehydration Holds lisinopril if persistent vomiting occurs Hypokalemia Connie-[place]rne tear Malnutrition Marijuana use, continuous Nausea and vomiting Non-pressure chronic ulcer of other part of left foot limited to breakdown of skin Other hammer toe(s) (acquired), left foot Peripheral autonomic neuropathy due to DM Physical deconditioning Sepsis Tardive dyskinesia due to metoclopramide (Reglan) Testosterone deficiency Surgical History History of toe surgery left hallux Family History Mother Atrial fibrillation Essential hypertension Sister Malignant neoplasm of female breast Maternal Grandfather Malignant neoplasm of colon Recorded 11/12/10 Father Essential hypertension Other Adopted DKA, type 1 Social History Smoking Status: Former smoker Alcohol Intake Frequency: former alcohol drinker Substance Use: former substance user Exam Narrative Narrative: I reviewed the vital signs. Gen -patient is awake and alert and appears quite uncomfortable. He is actively vomiting small volumes of clear emesis. HEENT -head is atraumatic. There is no conjunctival pallor or scleral icterus. Mucous membranes are dry. CV -S1-S2 regular rate and rhythm. Peripheral pulses are palpable. There is no JVD. Resp -breathing is nonlabored. Lungs are clear to auscultation bilaterally. There is no cyanosis. GI - Abdomen is soft and mildly tender to palpation diffusely. There is no guarding or rebound tenderness. Derm -skin is warm and dry. There is no visible rash. MSK -present extremities are atraumatic. Psych -patient has appropriate affect. The patient does not appear internally stimulated. Neuro -patient answers questions appropriately with fluent speech. Patient moves all present extremities equally. General Limitations: no limitations Course Vital Signs Vital signs: Vital Signs Temperature 97 F 09/11/21 14:56 Pulse Rate 108 H 09/11/21 14:56 Respiratory Rate 17 09/11/21 14:56 Blood Pressure 132/74 09/11/21 14:56 Pulse Oximetry (%) 94 09/11/21 14:56 Temperature 97 F 09/11/21 14:56 Pulse Rate 108 H 09/11/21 14:56 Respiratory Rate 17 09/11/21 14:56 Blood Pressure 113/73 09/11/21 17:30 Pulse Oximetry (%) 94 09/11/21 14:56 [facility] MDM Narrative Medical decision making narrative: Patient presents with nausea vomiting reminiscent of prior episodes of gas troparesis. I considered the possibility of surgical intra-abdominal pathology but this is completely identical to his chronic recurrent symptoms so I do not think he would benefit from abdominal imaging at this time. Labs remarkable for an anion gap metabolic acidosis and hyponatremia that is likely mostly due to his profound hyperglycemia. He was given IV fluids and IV insulin as well as antiemetics in the emergency department. At the time of shift change, his beta hydroxybutyrate is pending. I am unable to request a bed until we have proof of his ketosis so Dr. Loera assumed care at the change of shift and will follow up on the beta hydroxybutyrate results and ensure appropriate disposition. Critical care time I provided 31 minutes of critical care time. This was in addition to any separately billable procedures. The patient was given IV fluids and IV insulin to treat his diabetic ketoacidosis. The patient was closely monitored for response to treatment and stability of vital signs throughout their emergency department stay. Lab Data Lab results reviewed: Yes I reviewed the patient's lab results. Result diagrams: 09/11/21 15:29 Labs: Lab Results 09/11/21 09/11/21 09/11/21 Range/Units 15:29 15:29 15:29 WBC 12.9 H (4.5-11.0) K/mcL RBC 4.05 L (4.63-6.08) M/mcL Hgb 11.7 L (13.7-17.5) g/dL Hct 42.1 (40.1-51.0) % POC Hct 42 (41-55) % MCV 104.0 H (80.0-100.0) fL MCH 28.9 (26.0-34.0) pg MCHC 27.8 L (31.0-36.0) g/dL RDW 13.8 (11.5-14.5) % Plt Count 392 (140-440) K/mcL MPV 11.2 H (7.4-10.4) fL Neut % (Auto) 92.5 H (38.0-78.0) % Lymph % (Auto) 4.5 L (15.5-49.0) % [place] % (Auto) 2.5 (1.0-12.0) % Eos % (Auto) 0 (0.0-7.0) % Baso % (Auto) 0.5 (0.0-2.0) % Lymph # (Auto) 0.58 L (1.50-4.80) K/mcL [place] # (Auto) 0.32 (0.10-0.90) K/mcL Eos # (Auto) 0 (0.00-0.70) K/mcL Baso # (Auto) 0.06 (0.00-0.30) K/mcL Absolute Neutrophils 11.98 H (1.80-8.00) K/mcL ABG Methemoglobin 0.1 L (0.4-1.5) % VBG pH 7.28 L (7.32-7.42) U VBG pCO2 47.0 (41.0-51.0) mmHg VBG pO2 50.1 H (25.0-40.0) mmHg VBG HCO3 21.6 L (24.0-28.0) mmol/L VBG Total CO2 23.1 L (25.0-29.0) mmol/L VBG O2 Saturation 76.2 H (40.0-70.0) % VBG Base Excess -5 L (-2-3) Carboxyhemoglobin 3.8 H (0.0-1.5) % THgb Total Hemoglobin 11.4 L (13.5-16.5) gm/Dl POC Sodium 116 L* (133-145) mEq/L POC Potassium 5.0 (3.3-5.1) mEql/L POC Chloride 69 L (96-108) mEq/L POC Total CO2 22 (22-30) mmol/L POC BUN 40 H (6-20) mg/dL POC Creatinine 2.4 H (0.6-1.2) mg/dL POC Glucose > 700 H* mg/dL POC WB Ioniz Calcium 1.00 L (1.16-1.32) mmEq/L ED POC Tests ED POC Tests: GEGE - SARS Antigen Negative Discharge Plan Patient/Caregiver Discharge Instructions Pt seen by TOOL COORDINATOR/PA only: No Clinical Impression: DKA (diabetic ketoacidosis) Patient Disposition: Still a Patient Follow up with: Flo Peña MD [Primary Care Provider] - Prescriptions: No Action lisinopril 10 mg tablet 10 mg PO QDAY Qty: 90 1RF Rx Instructions: 1 tab QD noon, if no N/V or dehydration clonidine 0.2 mg/24 hr patch weekly 1 patch transdermal QWEEK Qty: 4 2RF (DME) Dexcom sensor & monitor See Rx Instructions .Route .MEDSUPPLY Qty: 1 0RF Rx Instructions: As directed insulin aspart U-100 [Novolog U-100 Insulin aspart] 100 unit/mL solution See Rx Instructions .ROUTE .COMPLEX 0RF Rx Instructions: use up to 70units daily via insulin pump (DME) blood-glucose meter Misc See Rx Instructions .Route Qty: 1 3RF Rx Instructions: use to test blood sugar 5 times daily (DME) Blood Glucose Test Strip See Rx Instructions .ROUTE .MEDSUPPLY Qty: 500 3RF Rx Instructions: use to test blood sugar 5 times daily (DME) lancets Misc See Rx Instructions .Route Qty: 500 3RF Rx Instructions: use to test blood sugar 5 times daily (DME) Ketone Urine Test Strip See Rx Instructions .Route Qty: 100 0RF Rx Instructions: use to test urine for ketones daily glucagon 3 mg/actuation spray,non-aerosol 3 mg intranasal ONCE PRN (Reason: hypoglycemia) Qty: 2 1RF Rx Instructions: as a single dose atorvastatin 40 MG tablet 40 mg PO HS 0RF furosemide 20 mg Tablet 20 mg PO QAM PRN (Reason: Edema/hypertension) 0RF Rx Instructions: Take on days when you are not vomiting carvedilol 6.25 mg tablet 3.125 mg PO BID 0RF Rx Instructions: must administer with a meal/food fluoxetine 10 mg capsule 20 mg PO DAILY 0RF lorazepam 1 mg tablet 1 - 2 mg PO QDAY PRN (Reason: Anxiety) 0RF ondansetron 4 mg tablet,disintegrating 4 mg PO Q8H PRN (Reason: nausea and vomiting) Qty: 14 0RF
[2021-09-11] MEDS: INSULIN REGULAR, HUMAN 50 UNIT in 0.9 % SODIUM CHLORIDE 99.5 ML IV SCH ×4 (17:05→22:14)
--- NOTE | 2021-09-11 18:16 | Emergency Department Note ---
Course Consultations Consultation #1: Dr. Freeman, hospitalist Time: 20:40 Vital Signs Vital signs: Vital Signs Temperature 97 F 09/11/21 14:56 Pulse Rate 108 H 09/11/21 14:56 Respiratory Rate 17 09/11/21 14:56 Blood Pressure 132/74 09/11/21 14:56 Pulse Oximetry (%) 94 09/11/21 14:56 Temperature 98.2 F 09/12/21 03:00 Pulse Rate 81 09/12/21 02:36 Respiratory Rate 19 09/12/21 02:36 Blood Pressure 104/69 09/12/21 02:05 Pulse Oximetry (%) 95 09/12/21 02:36 MDM MDM Narrative Medical decision making narrative: Patient received in signout from Dr. Woods. History of type 1 diabetes and frequent admissions for DKA. Hyperglycemic to 818 with an elevated anion gap, ketones 11.78, and lactate of 3.7 consistent with DKA. Insulin bolus and drip started. IV fluids given. Patient endorsed to Dr. Freeman for admission to the ICU. Lab Data Lab results reviewed: Yes I reviewed the patient's lab results. Result diagrams: 09/11/21 15:29 09/11/21 21:58 Labs: Lab Results 09/11/21 09/11/21 09/11/21 Range/Units 15:29 15:29 15:29 WBC 12.9 H (4.5-11.0) K/mcL RBC 4.05 L (4.63-6.08) M/mcL Hgb 11.7 L (13.7-17.5) g/dL Hct 42.1 (40.1-51.0) % POC Hct 42 (41-55) % MCV 104.0 H (80.0-100.0) fL MCH 28.9 (26.0-34.0) pg MCHC 27.8 L (31.0-36.0) g/dL RDW 13.8 (11.5-14.5) % Plt Count 392 (140-440) K/mcL MPV 11.2 H (7.4-10.4) fL Neut % (Auto) 92.5 H (38.0-78.0) % Lymph % (Auto) 4.5 L (15.5-49.0) % [place] % (Auto) 2.5 (1.0-12.0) % Eos % (Auto) 0 (0.0-7.0) % Baso % (Auto) 0.5 (0.0-2.0) % Lymph # (Auto) 0.58 L (1.50-4.80) K/mcL [place] # (Auto) 0.32 (0.10-0.90) K/mcL Eos # (Auto) 0 (0.00-0.70) K/mcL Baso # (Auto) 0.06 (0.00-0.30) K/mcL Absolute Neutrophils 11.98 H (1.80-8.00) K/mcL ABG Methemoglobin 0.1 L (0.4-1.5) % VBG pH 7.28 L (7.32-7.42) U VBG pCO2 47.0 (41.0-51.0) mmHg VBG pO2 50.1 H (25.0-40.0) mmHg VBG HCO3 21.6 L (24.0-28.0) mmol/L VBG Total CO2 23.1 L (25.0-29.0) mmol/L VBG O2 Saturation 76.2 H (40.0-70.0) % VBG Base Excess -5 L (-2-3) VBG Lactic Acid (0.5-2.0) mmol/L Carboxyhemoglobin 3.8 H (0.0-1.5) % THgb Total Hemoglobin 11.4 L (13.5-16.5) gm/Dl POC Sodium 116 L* (133-145) mEq/L Sodium (133-145) mmol/L POC Potassium 5.0 (3.3-5.1) mEql/L Potassium (3.3-5.1) mmol/L POC Chloride 69 L (96-108) mEq/L Chloride (96-108) mmol/L Carbon Dioxide (22-30) mmol/L POC Total CO2 22 (22-30) mmol/L Anion Gap (8.0-16.0) POC BUN 40 H (6-20) mg/dL BUN (6-20) mg/dL Creatinine (0.7-1.2) mg/dL POC Creatinine 2.4 H (0.6-1.2) mg/dL GFR Calculation Glucose (70-105) mg/dL POC Glucose > 700 H* mg/dL Calcium (8.6-10.4) mg/dL POC WB Ioniz Calcium 1.00 L (1.16-1.32) mmEq/L Total Bilirubin 0.6 (0.1-1.0) mg/dL Direct Bilirubin < 0.2 (0-0.3) mg/dL AST 12 (<40) U/L ALT 18 (<40) U/L Alkaline Phosphatase 149 H (39-117) U/L Total Protein 7.7 (5.9-8.4) gm/dL Albumin 3.9 (3.2-5.2) gm/dL Globulin 3.8 H (2.2-3.7) gm/dL Albumin/Globulin Ratio (1.0-2.3) Lipase 28 (7-60) U/L Beta-Hydroxybutyrate 11.78 H (<0.27) mmol/L 09/11/21 09/11/21 Range/Units 19:40 19:40 WBC (4.5-11.0) K/mcL RBC (4.63-6.08) M/mcL Hgb (13.7-17.5) g/dL Hct (40.1-51.0) % POC Hct (41-55) % MCV (80.0-100.0) fL MCH (26.0-34.0) pg MCHC (31.0-36.0) g/dL RDW (11.5-14.5) % Plt Count (140-440) K/mcL MPV (7.4-10.4) fL Neut % (Auto) (38.0-78.0) % Lymph % (Auto) (15.5-49.0) % [place] % (Auto) (1.0-12.0) % Eos % (Auto) (0.0-7.0) % Baso % (Auto) (0.0-2.0) % Lymph # (Auto) (1.50-4.80) K/mcL [place] # (Auto) (0.10-0.90) K/mcL Eos # (Auto) (0.00-0.70) K/mcL Baso # (Auto) (0.00-0.30) K/mcL Absolute Neutrophils (1.80-8.00) K/mcL ABG Methemoglobin (0.4-1.5) % VBG pH (7.32-7.42) U VBG pCO2 (41.0-51.0) mmHg VBG pO2 (25.0-40.0) mmHg VBG HCO3 (24.0-28.0) mmol/L VBG Total CO2 (25.0-29.0) mmol/L VBG O2 Saturation (40.0-70.0) % VBG Base Excess (-2-3) VBG Lactic Acid 3.7 H (0.5-2.0) mmol/L Carboxyhemoglobin (0.0-1.5) % THgb Total Hemoglobin (13.5-16.5) gm/Dl POC Sodium (133-145) mEq/L Sodium 118 L* (133-145) mmol/L POC Potassium (3.3-5.1) mEql/L Potassium 4.2 (3.3-5.1) mmol/L POC Chloride (96-108) mEq/L Chloride 68 L (96-108) mmol/L Carbon Dioxide 27 (22-30) mmol/L POC Total CO2 (22-30) mmol/L Anion Gap 23.0 H (8.0-16.0) POC BUN (6-20) mg/dL BUN 40 H (6-20) mg/dL Creatinine 2.5 H (0.7-1.2) mg/dL POC Creatinine (0.6-1.2) mg/dL GFR Calculation 32 Glucose 1099 H* (70-105) mg/dL POC Glucose mg/dL Calcium 8.2 L (8.6-10.4) mg/dL POC WB Ioniz Calcium (1.16-1.32) mmEq/L Total Bilirubin 0.2 (0.1-1.0) mg/dL Direct Bilirubin (0-0.3) mg/dL AST 10 (<40) U/L ALT 14 (<40) U/L Alkaline Phosphatase 115 (39-117) U/L Total Protein 6.0 (5.9-8.4) gm/dL Albumin 3.2 (3.2-5.2) gm/dL Globulin 2.8 (2.2-3.7) gm/dL Albumin/Globulin Ratio 1.1 (1.0-2.3) Lipase (7-60) U/L Beta-Hydroxybutyrate (<0.27) mmol/L ED POC Tests ED POC Tests: GEGE - SARS Antigen Negative Discharge Plan Patient/Caregiver Discharge Instructions Pt seen by [id number] PROGRAMMER/PA only: No Clinical Impression: DKA (diabetic ketoacidosis) Patient Disposition: Xfer As Inpt ([facility]) Condition: Critical Discharge Date/Time: 09/11/21 21:35
[2021-09-11] MEDS ORDERED: INSULIN REGULAR, HUMAN 1 UNIT/0.01 ML UNIT IV ONE ×2 (20:38→22:25)
[2021-09-11 20:48] LABS: ALT/SGPT 18 U/L (<40); AST/SGOT 12 U/L (<40); Albumin 3.9 gm/dL (3.2-5.2); Alkaline Phosphatase 149 U/L (39-117); Bilirubin,Direct < 0.2 mg/dL (0-0.3); Bilirubin,Total 0.6 mg/dL (0.1-1.0); Globulin 3.8 gm/dL (2.2-3.7)
[2021-09-11 20:50] LABS: Beta Hydroxybutyrate 11.78 mmol/L (<0.27)
[2021-09-11 20:54] LABS: ALT/SGPT 14 U/L (<40); AST/SGOT 10 U/L (<40); Albumin 3.2 gm/dL (3.2-5.2); Albumin/Globulin Ratio 1.1 (1.0-2.3); Alkaline Phosphatase 115 U/L (39-117); Bilirubin,Total 0.2 mg/dL (0.1-1.0); Blood Urea Nitrogen 40 mg/dL (6-20); Calcium 8.2 mg/dL (8.6-10.4); Carbon Dioxide 27 mmol/L (22-30); Chloride 68 mmol/L (96-108); Globulin 2.8 gm/dL (2.2-3.7); Glomerular Filtration Rate 32; Glucose 1099 mg/dL (70-105)
--- NOTE | 2021-09-11 21:03 | Internal Med History&Physical ---
HPI History of Present Illness Patient information: Note initiated : 09/11/21 at 9:01 pm Service Date, if different from initiated Date: [] Patient: Mauri Levine a 35 y/o M admitted on for Nausea/Vomiting. Chief Complaint: [nausea vomiting abdominal pain] Chief complaint: nausea vomiting abdominal pain History of present illness: Mr. Levine is a 35 year old M history of type 1 diabetes mellitus status post insulin pump as well as essential hypertension, frequent hospital admission for DKA, presenting with 3-day history of nausea vomiting and abdominal pain. Patient claims that he has been compliant to his medications and his insulin pump has been working properly to his known agent. Anyway, he is committing of 3-day history of nausea vomiting as well as diffuse moderate constant abdominal pain. He is also committing of decreased appetite and he can barely tolerate any oral intake. He denies any fever chills or diaphoresis. He denies any chest pain or trouble breathing. Due to the nonresolving and worsening nature of his symptoms, he decided to come to our ED for further evaluations. Labs significant for leukocytosis with WBC 12.9. Electrolytes showing serum sodium level of 118, serum bicarb of 21, and anion gap of 23. Serum creatinine level 2.5. Blood glucose level 1099. Beta hydroxybutyrate 11.78. pH 7.28. Foundings suggestive of diabetic ketoacidosis. Constitutional Constitutional: Absent chills, excessive sweating, fatigue, fever(s) or weakness EENT Eyes: Absent blurry vision, change in vision, loss of vision or other visual disturbances Ears: Absent decreased hearing or tinnitus Nose, mouth and throat: Absent abnormal hearing, dry mouth, headache(s), nasal congestion or sore throat Cardiovascular Cardiovascular: Absent chest pain, chest pain at rest, edema, irregular heart rhythm or palpatations Respiratory Respiratory: Absent cough, dyspnea or wheezing Gastrointestinal Gastrointestinal: Present abdominal pain, diarrhea, nausea and vomiting; Absent constipation Musculoskeletal Musculoskeletal: Absent back pain, deformity, limited range of motion, muscle cramps, muscle weakness or numbness Integumentary Integumentary: Absent lesions, rash or wounds Neurological Neurological: Absent focal weakness, headache(s) or numbness Psychiatric Psychiatric: Absent anxiety, depression or hallucinations PFSH PFSH All Active Problems (Updated 09/11/21 @ 21:12 by Mustapha Freeman MD) Hyponatremia (Acute) Stage 2 acute kidney injury (Acute) Diabetic gastroparesis (Acute) Metabolic alkalosis (Acute) Testosterone deficiency (Chronic) Nausea and vomiting (Chronic) GERD (gastroesophageal reflux disease) (Chronic) Other hammer toe(s) (acquired), left foot (Chronic) Hypertension, essential (Chronic) Hyperlipidemia (Chronic) History of neuroleptic malignant syndrome (Chronic) Dehydration (Acute) Drug-induced nausea and vomiting (Acute) Uncontrolled type 1 diabetes mellitus with diabetic nephropathy, with long-term current use of insulin (Chronic) Cyclic vomiting syndrome (Chronic) Type 1 diabetes mellitus with stage 3 chronic kidney disease and hypertension (Chronic) Marijuana use, continuous (Chronic) CKD (chronic kidney disease) (Acute) Nephrotic range proteinuria (Chronic) Controlled type 1 diabetes mellitus with chronic kidney disease (Chronic) Port-A-Cath in place (Acute) Diabetic gastroparesis associated with type 1 diabetes mellitus (Chronic) Diabetic neuropathy associated with type 1 diabetes mellitus (Chronic) Diabetic retinopathy associated with type 1 diabetes mellitus (Chronic) Anxiety (Chronic) Back pain (Chronic) Physical deconditioning (Chronic) Malnutrition (Chronic) Acute dehydration (Acute) Acute hypokalemia (Acute) QT prolongation (Acute) Dehydration (Acute) No-show for appointment (Acute) Intractable cyclical vomiting with nausea (Acute) Diabetic gastroparesis (Acute) ROSALIO (acute kidney injury) (Acute) Hyperglycemia (Acute) Dehydration (Acute) Major depressive disorder, recurrent (Acute) Generalized anxiety disorder (Acute) Trauma and stressor-related disorder (Acute) Diabetic gastroparesis (Acute) Nausea & vomiting (Acute) Acute dehydration (Acute) Ketosis (Acute) Uncontrolled diabetes mellitus (Acute) DKA (diabetic ketoacidosis) (Acute) Hyperosmolar hyperglycemic state (HHS) (Acute) Medical History Abdominal pain, epigastric Anxiety Back pain Chronic ulcer of left foot Coffee ground emesis Diabetes mellitus type I Age 12, With foot ulcer Diabetic gastroparesis associated with type 1 diabetes mellitus Diabetic neuropathy associated with type 1 diabetes mellitus Diabetic peripheral neuropathy Diabetic retinopathy associated with type 1 diabetes mellitus DKA, type 1 Esophageal candidiasis Gastroenteritis Gastroparesis due to DM GERD (gastroesophageal reflux disease) Hallux valgus (acquired), left foot History of neuroleptic malignant syndrome To compazine (prochlorperazine). Tolerates promethazine without issue Hyperlipidemia Hypertension, essential labile due to unpredictable Rx absorption with gastroparesis and propensity for dehydration Holds lisinopril if persistent vomiting occurs Hypokalemia Connie-[place]rne tear Malnutrition Marijuana use, continuous Nausea and vomiting Non-pressure chronic ulcer of other part of left foot limited to breakdown of skin Other hammer toe(s) (acquired), left foot Peripheral autonomic neuropathy due to DM Physical deconditioning Sepsis Tardive dyskinesia due to metoclopramide (Reglan) Testosterone deficiency Surgical History History of toe surgery left hallux Family History Mother Atrial fibrillation Essential hypertension Sister Malignant neoplasm of female breast Maternal Grandfather Malignant neoplasm of colon Recorded 11/12/10 Father Essential hypertension Other Adopted DKA, type 1 Social History adopted: Yes household members: family housing: other details: 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 marital status: single occupational status: disabled occupation: On disability since 2016 physical activity: walking smoking status: Former smoker quit date: 02/12/11 alcohol intake frequency: former alcohol drinker substance use type: former substance user seatbelt use: always MEDS/ALLERGIES Home Medications and Allergies Home Medications Medication Instructions Recorded Confirmed Type atorvastatin 40 mg tablet 40 mg PO HS 02/13/19 08/27/21 History clonidine 0.2 mg/24 hr weekly 1 patch TRANSDERMAL QWEEK #4 ea 03/26/21 08/27/21 Rx transdermal patch insulin aspart U-100 100 unit/mL See Rx Instructions .ROUTE .COMPLEX 03/26/21 08/27/21 History subcutaneous solution (Novolog U-100 Insulin aspart) lisinopril 10 mg tablet 10 mg PO QDAY #90 tab 07/01/21 08/27/21 Rx furosemide 20 mg tablet 20 mg PO QAM PRN 08/03/21 08/27/21 History carvedilol 6.25 mg tablet 3.125 mg PO BID 08/21/21 08/27/21 History fluoxetine 10 mg capsule 20 mg PO DAILY 08/21/21 08/27/21 History lorazepam 1 mg tablet 1 - 2 mg PO QDAY PRN 08/21/21 08/27/21 History Dexcom sensor & monitor #1 ea 08/27/21 08/27/21 Rx ondansetron 4 mg disintegrating 4 mg PO Q8H PRN #14 tab 08/28/21 Rx tablet acetone (urine) test (Ketone Urine #100 ea 09/10/21 09/10/21 Rx Test) blood sugar diagnostic (Blood #500 ea 09/10/21 09/10/21 Rx Glucose Test) blood-glucose meter #1 ea 09/10/21 09/10/21 Rx glucagon 3 mg/actuation nasal spray 3 mg INTRANASAL ONCE PRN #2 ea 09/10/21 09/10/21 Rx lancets #500 ea 09/10/21 09/10/21 Rx Allergies Allergy/AdvReac Type Severity Reaction Status Date / Time NSAIDS (Non-Steroidal Allergy Unknown Unknown Verified 08/27/21 11:39 Anti-Inflamma metoclopramide [From Reglan] AdvReac Mild Agitated Verified 08/27/21 11:39 prochlorperazine AdvReac Mild "My whole Verified 08/27/21 11:39 [From Compazine] body freaks out." silver AdvReac Mild dystonic Verified 08/27/21 11:39 IV iodine contrast Allergy Unknown Unknown Uncoded 08/27/21 11:39 EXAM Constitutional Vitals: Temp Pulse Resp BP Pulse Ox 36.1 C 96 H 17 101/51 96 09/11/21 14:56 09/11/21 20:10 09/11/21 20:10 09/11/21 20:10 09/11/21 20:10 General appearance: cooperative, mild distress and thin Head Head exam: Present atraumatic and normocephalic Eye Eye exam: Present EOMI and PERRL ENT ENT exam: Present mucous membranes moist, normal exam and normal external ear exam Neck Neck exam: Present normal inspection; Absent lymphadenopathy, tenderness or thyromegaly Respiratory Respiratory exam: Absent accessory muscle use, respiratory distress or wheezes Cardiovascular Cardiovascular exam: Present tachycardia; Absent JVD GI/Abdominal GI/Abdominal exam: Present normal bowel sounds, soft and tenderness; Absent organomegaly Additional comments: insulin pump in place Rectal Rectal exam: Present deferred Extremities Exam Extremities exam: Present full ROM, normal capillary refill and normal inspection; Absent tenderness Neurological Exam Neurological exam: Present alert, CN II-XII intact and oriented X3; Absent motor sensory deficit Psychiatric Psychiatric exam: Present normal affect and normal mood; Absent anxious or depressed Skin Skin exam: Present dry and intact DATA Data Completed and Pending Labs: Labs from last 24 hours 09/11/21 09/11/21 09/11/21 19:40 19:40 15:29 WBC RBC Hgb Hct POC Hct MCV MCH MCHC RDW Plt Count MPV Neut % (Auto) Lymph % (Auto) [place] % (Auto) Eos % (Auto) Baso % (Auto) Lymph # (Auto) [place] # (Auto) Eos # (Auto) Baso # (Auto) Absolute Neutrophils ABG Methemoglobin 0.1 L VBG pH 7.28 L VBG pCO2 47.0 VBG pO2 50.1 H VBG HCO3 21.6 L VBG Total CO2 23.1 L VBG O2 Saturation 76.2 H VBG Base Excess -5 L VBG Lactic Acid 3.7 H Carboxyhemoglobin 3.8 H Total Hemoglobin 11.4 L POC Sodium Sodium 118 L* POC Potassium Potassium 4.2 POC Chloride Chloride 68 L Carbon Dioxide 27 POC Total CO2 Anion Gap 23.0 H POC BUN BUN 40 H Creatinine 2.5 H POC Creatinine GFR Calculation 32 Glucose 1099 H* POC Glucose Calcium 8.2 L POC WB Ioniz Calcium Total Bilirubin 0.2 Direct Bilirubin AST 10 ALT 14 Alkaline Phosphatase 115 Total Protein 6.0 Albumin 3.2 Globulin 2.8 Albumin/Globulin Ratio 1.1 Lipase Beta-Hydroxybutyrate 09/11/21 09/11/21 15:29 15:29 WBC 12.9 H RBC 4.05 L Hgb 11.7 L Hct 42.1 POC Hct 42 MCV 104.0 H MCH 28.9 MCHC 27.8 L RDW 13.8 Plt Count 392 MPV 11.2 H Neut % (Auto) 92.5 H Lymph % (Auto) 4.5 L [place] % (Auto) 2.5 Eos % (Auto) 0 Baso % (Auto) 0.5 Lymph # (Auto) 0.58 L [place] # (Auto) 0.32 Eos # (Auto) 0 Baso # (Auto) 0.06 Absolute Neutrophils 11.98 H ABG Methemoglobin VBG pH VBG pCO2 VBG pO2 VBG HCO3 VBG Total CO2 VBG O2 Saturation VBG Base Excess VBG Lactic Acid Carboxyhemoglobin Total Hemoglobin POC Sodium 116 L* Sodium POC Potassium 5.0 Potassium POC Chloride 69 L Chloride Carbon Dioxide POC Total CO2 22 Anion Gap POC BUN 40 H BUN Creatinine POC Creatinine 2.4 H GFR Calculation Glucose POC Glucose > 700 H* Calcium POC WB Ioniz Calcium 1.00 L Total Bilirubin 0.6 Direct Bilirubin < 0.2 AST 12 ALT 18 Alkaline Phosphatase 149 H Total Protein 7.7 Albumin 3.9 Globulin 3.8 H Albumin/Globulin Ratio Lipase 28 Beta-Hydroxybutyrate 11.78 H A/P Assessment and plan (1) GERD (gastroesophageal reflux disease): Status: Chronic Qualifiers: Esophagitis presence: esophagitis presence not specified Qualified Code(s): K21.9 - Gastro-esophageal reflux disease without esophagitis (2) Hypertension, essential: Status: Chronic Comment: labile due to unpredictable Rx absorption with gastroparesis and propensity for dehydration Holds lisinopril if persistent vomiting occurs (3) Hyperlipidemia: Status: Chronic (4) Type 1 diabetes mellitus with stage 3 chronic kidney disease and hypertension: Status: Chronic Comment: As above (5) Stage 2 acute kidney injury: Status: Acute (6) DKA (diabetic ketoacidosis): Status: Acute (7) Hyponatremia: Status: Acute Narrative A/P Narrative: Assessment and Plans: 1. DKA with T1DM: Inpatient ICU with telemetry NPO with IV fluid as following: a) NS w/ KCl 20mEq @250cc/hr give when anion gap is elevated (>14) and blood glucose >=200 b) D5 1/2NS w/ KCl 20mEq @250cc/hr give when anion gap is elevated (>14) and blood glucose <200 Regular insulin followed by insulin drip as per DKA protocol Accu Chek q1hr BMP q6hr HgA1c tobacco educator 2. Hyponatremia: NPO with IV fluid as following: a) NS w/ KCl 20mEq @250cc/hr give when anion gap is elevated (>14) and blood glucose >=200 b) D5 1/2NS w/ KCl 20mEq @250cc/hr give when anion gap is elevated (>14) and blood glucose <200 BMP q6hr 3. Stage 2 acute kidney injury associated with CKD III: Avoid nephrotoxic agents NPO with IV fluid as following: a) NS w/ KCl 20mEq @250cc/hr give when anion gap is elevated (>14) and blood glucose >=200 b) D5 1/2NS w/ KCl 20mEq @250cc/hr give when anion gap is elevated (>14) and blood glucose <200 BMP q6hr to trend kidney functions 4. Essential HTN: Coreg Lisinopril Hold diuretics while giving IV fluid 5. Mixed dyslipidemia: Statin therapy 6. GERD: Protonix 40mg IV daily GI ppx: Protonix 40mg IV daily DVT ppx: Heparin Code status: Full Prognosis: extremely guarded Disposition: inpatient ICU Critical Care Time: 1hr Time Spent With Patient Time: Total time spent is greater than 50% in coordination of care (as documented) at patient's floor/unit and/or counseling patient: Total time spent with greater than 50% in coordination of care (as documented) at patient's floor/unit and/or counseling patient:: Greater than 35 minutes
[2021-09-11] MEDS ORDERED: 0.9 % SODIUM CHLORIDE 1,000 ML IV ONE (21:11)
[2021-09-11] MEDS ORDERED: MAG HYDROX/AL HYDROX/SIMETH 30 ML ORAL.SUSP PO PRN (21:46)
[2021-09-11] MEDS ORDERED: ONDANSETRON 4 MG/2 ML VIAL IV PRN (21:46)
[2021-09-11] MEDS ORDERED: CARVEDILOL 6.25 MG TABLET PO SCH (21:46)
[2021-09-11] MEDS ORDERED: morphine 4 MG/ML VIAL IV PRN (21:46)
[2021-09-11] MEDS ORDERED: IPRATROPIUM/ALBUTEROL 3 ML AMPUL.NEB NEB PRN (21:46)
[2021-09-11] MEDS ORDERED: SENNOSIDES 1 TABLET PO PRN (21:57)
[2021-09-11] MEDS ORDERED: CARVEDILOL 3.125 MG TABLET PO ONE (22:00)
[2021-09-11] MEDS ORDERED: INSULIN REGULAR, HUMAN 1 UNIT/0.01 ML UNIT ONE ×2 (22:17→22:35)
[2021-09-11 22:20] LABS: ABG Methemoglobin 0.3 % (0.4-1.5); Total Hemoglobin 9.5 gm/Dl (13.5-16.5); VBG Base Excess 14 (-2-3); VBG HCO3 38.5 mmol/L (24.0-28.0); VBG Oxygen Saturation 90.9 % (40.0-70.0); VBG PCO2 50.6 mmHg (41.0-51.0); VBG PO2 74.1 mmHg (25.0-40.0)
[2021-09-11 22:38] LABS: Carbon Dioxide 32 mmol/L (22-30); Chloride 73 mmol/L (96-108)
[2021-09-11] MEDS: NACL 0.9% W/KCL 20MEQ 1,000 ML IV SCH (22:42)
[2021-09-11] MEDS: 0.9 % SODIUM CHLORIDE 10 ML SYRINGE IV SCH (22:44)
[2021-09-11] MEDS: ATORVASTATIN 40 MG TABLET PO SCH (22:44)
[2021-09-11] MEDS: DOCUSATE SODIUM 100 MG CAPSULE PO SCH (22:44)
[2021-09-11] MEDS: DEXTROSE 5%-1/2NS W/20MEQ KCL 1,000 ML IV SCH (22:44)
[2021-09-11 22:58] LABS: ALT/SGPT 15 U/L (<40); AST/SGOT 11 U/L (<40); Albumin 3.3 gm/dL (3.2-5.2); Albumin/Globulin Ratio 1.2 (1.0-2.3); Alkaline Phosphatase 114 U/L (39-117); Bilirubin,Direct < 0.2 mg/dL (0-0.3); Bilirubin,Total 0.3 mg/dL (0.1-1.0); Blood Urea Nitrogen 39 mg/dL (6-20); Calcium 8.4 mg/dL (8.6-10.4); Globulin 2.7 gm/dL (2.2-3.7); Glomerular Filtration Rate 29; Glucose 818 mg/dL (70-105); Lactate Dehydrogenase 150 U/L (135-225); Phosphorous 3.8 mg/dL (2.5-4.5); Triglycerides 102 mg/dL (<150); Uric Acid 6.8 mg/dL (2.5-8.0)
[2021-09-11 23:09] LABS: Estimated Average Glucose(eAG) 278 mg/dL; Hemoglobin A1C 11.3 % Hgb (4.0-6.0)
[2021-09-12] MEDS: HEPARIN 5,000 UNIT/ML VIAL SQ SCH ×3 (00:25→22:01)
[2021-09-12] MEDS: DEXTROSE 5%-1/2NS W/20MEQ KCL 1,000 ML IV SCH ×4 (03:05→10:11)
[2021-09-12] MEDS: NACL 0.9% W/KCL 20MEQ 1,000 ML IV SCH ×3 (03:17→10:12)
[2021-09-12] MEDS ORDERED: INSULIN REGULAR, HUMAN 1 UNIT/0.01 ML UNIT ONE (03:44)
[2021-09-12 04:30] LABS: ABG Methemoglobin 0.3 % (0.4-1.5); Total Hemoglobin 9.2 gm/Dl (13.5-16.5); VBG Base Excess 17 (-2-3); VBG HCO3 41.3 mmol/L (24.0-28.0); VBG PCO2 48.5 mmHg (41.0-51.0); VBG PH 7.55 U (7.32-7.42); VBG PO2 72.8 mmHg (25.0-40.0); VBG Total CO2 42.8 mmol/L (25.0-29.0)
[2021-09-12 04:33] LABS: Basophils # (Auto) 0.04 K/mcL (0.00-0.30); Basophils % (Auto) 0.2 % (0.0-2.0); Eosinophils # (Auto) 0.06 K/mcL (0.00-0.70); Eosinophils % (Auto) 0.3 % (0.0-7.0); Hematocrit 27.3 % (40.1-51.0); Hemoglobin 9.5 g/dL (13.7-17.5); Lymphocytes # (Auto) 3.34 K/mcL (1.50-4.80); Lymphocytes % (Auto) 19.2 % (15.5-49.0); Mean Cell Volume 83.5 fL (80.0-100.0); Mean Corpuscular HGB Conc 34.8 g/dL (31.0-36.0); Mean Platelet Volume 10.2 fL (7.4-10.4); Monocytes # (Auto) 1.61 K/mcL (0.10-0.90); Monocytes % (Auto) 9.2 % (1.0-12.0); Neutrophils % (Auto) 71.1 % (38.0-78.0); Platelet Count 319 K/mcL (140-440); RBC 3.27 M/mcL (4.63-6.08); Red Cell Distribution Width 13.2 % (11.5-14.5); WBC 17.4 K/mcL (4.5-11.0)
[2021-09-12 04:49] LABS: Carbon Dioxide 34 mmol/L (22-30); Chloride 88 mmol/L (96-108)
[2021-09-12] MEDS: 0.9 % SODIUM CHLORIDE 10 ML SYRINGE IV SCH ×3 (05:39→22:02)
[2021-09-12] MEDS: INSULIN REGULAR, HUMAN 50 UNIT in 0.9 % SODIUM CHLORIDE 99.5 ML IV SCH (06:05)
[2021-09-12] MEDS: SUCRALFATE 1 GM/10 ML ORAL.SUSP PO SCH ×3 (07:16→17:26)
[2021-09-12] MEDS: PANTOPRAZOLE 40 MG VIAL IV SCH (07:16)
--- NOTE | 2021-09-12 07:57 | Internal Med Progress Note ---
SUBJECTIVE Subjective Patient information: Note initiated : 09/12/21 at 7:54 am Service Date, if different from initiated Date: [] Patient: Mauri Levine a 35 y/o M admitted on 09/11/21 for Nausea/Vomiting. Chief Complaint: [] Interval history: Mr. Levine is a 35 year old M history of type 1 diabetes mellitus status post insulin pump as well as essential hypertension, frequent hospital admission for DKA, presenting with 3-day history of nausea vomiting and abdominal pain. Patient claims that he has been compliant to his medications and his insulin pump has been working properly to his known agent. Anyway, he is committing of 3-day history of nausea vomiting as well as diffuse moderate constant abdominal pain. He is also committing of decreased appetite and he can barely tolerate any oral intake. He denies any fever chills or diaphoresis. He denies any chest pain or trouble breathing. Due to the nonresolving and worsening nature of his symptoms, he decided to come to our ED for further evaluations. Labs significant for leukocytosis with WBC 12.9. Electrolytes showing serum sodium level of 118, serum bicarb of 21, and anion gap of 23. Serum creatinine level 2.5. Blood glucose level 1099. Beta hydroxybutyrate 11.78. pH 7.28. Founding suggestive of diabetic ketoacidosis. 09/12: Fasting glucose 111. Anion gap closed at 10. Patient feeling much better, denies nausea vomiting or abdominal pain. Will start transition from insulin drip to insulin pump with 2 hour overlap. Will saline lock and feed patient with CC diet at 0930. Constitutional Vitals: Vital Signs Temp Pulse Resp BP Pulse Ox 36.4 C 73 17 122/78 97 09/12/21 05:37 09/12/21 07:01 09/12/21 07:01 09/12/21 07:01 09/12/21 07:01 Period Temp Pulse Resp BP Sys/Menard Pulse Ox Last 24 Hr 36.1 C-36.8 C 73-108 0- 94-157/51-90 94-100 Intake and Output 09/11/21 09/12/21 09/12/21 21:59 05:59 13:59 Intake Total 2066 1363 1013 Output Total 750 600 Balance 2066 613 413 Weight 69.882 kg Intake & Output: Intake & Output 09/11/21 09/12/21 09/12/21 21:59 05:59 13:59 Intake Total 2066 1363 1013 Output Total 750 600 Balance 2066 613 413 Weight 69.882 kg Intake: IV 2066 1363 1013 Sodium Chloride 0.9% 1,000 ml @ 200 Wide Open IV [facility] Rx#: [id number] Dextrose 5%-1/2Ns W/20Meq KCl 1 1000 ,000 ml @ 250 mls/hr IV .Q4H [facility] Rx#:[id number] HumuLIN R 50 UNIT In Sodium 67 163 13 Chloride 0.9% 99.5 ml @ Per Protocol IV DUR [facility] Rx#: [id number] Lactated Ringers 1,000 ml @ 2000 Wide Open IV [facility] Rx#: [id number] NaCl 0.9% W/KCl 20Meq 1000ML 1, 1000 000 ml @ 250 mls/hr IV .Q4H [facility] Rx#:[id number] Oral 0 Output: Void Amount 750 600 Other: Urine Appearance Clear Clear Urine Color Pale Bright Yellow Urine Odor Normal General appearance: average body habitus, disheveled and no acute distress Head Head exam: Present atraumatic and normal inspection Eye Eye exam: Present normal appearance ENT ENT exam: Present mucous membranes moist, normal exam and normal external ear exam Neck Neck exam: Present normal inspection Respiratory Respiratory exam: Present normal respiratory exam Cardiovascular Cardiovascular exam: Present normal rate and rhythm GI/Abdominal GI/Abdominal exam: Present normal bowel sounds Additional comments: insulin pump in place Back Exam Back exam: Present normal inspection Neurological Exam Neurological exam: Present alert and oriented X3 Skin Skin exam: Present intact and warm OBJ DATA Labs CBC & Chem 7: 09/12/21 04:02 09/12/21 04:02 Labs: Abnormal Lab Results 09/12/21 09/12/21 09/12/21 04:02 04:02 04:02 WBC 17.4 H RBC 3.27 L Hgb 9.5 L Hct 27.3 L MCV MCHC MPV Neut % (Auto) Lymph % (Auto) Lymph # (Auto) [place] # (Auto) 1.61 H Absolute Neutrophils 12.37 H ABG Methemoglobin 0.3 L VBG pH 7.55 H VBG pO2 72.8 H VBG HCO3 41.3 H* VBG Total CO2 42.8 H* VBG O2 Saturation 92.0 H VBG Base Excess 17 H VBG Lactic Acid Carboxyhemoglobin 3.6 H Total Hemoglobin 9.2 L POC Sodium Sodium 132 L POC Chloride Chloride 88 L Carbon Dioxide 34 H Anion Gap POC BUN BUN Creatinine POC Creatinine Glucose POC Glucose Hemoglobin A1c Calcium POC WB Ioniz Calcium Magnesium 2.9 H Alkaline Phosphatase Globulin Beta-Hydroxybutyrate 09/11/21 09/11/21 09/11/21 21:58 21:58 19:40 WBC RBC Hgb Hct MCV MCHC MPV Neut % (Auto) Lymph % (Auto) Lymph # (Auto) [place] # (Auto) Absolute Neutrophils ABG Methemoglobin 0.3 L VBG pH 7.50 H VBG pO2 74.1 H VBG HCO3 38.5 H VBG Total CO2 40.0 H VBG O2 Saturation 90.9 H VBG Base Excess 14 H VBG Lactic Acid 3.7 H Carboxyhemoglobin 4.5 H Total Hemoglobin 9.5 L POC Sodium Sodium 122 L POC Chloride Chloride 73 L Carbon Dioxide 32 H Anion Gap 17.0 H POC BUN BUN 39 H Creatinine 2.7 H POC Creatinine Glucose 818 H* POC Glucose Hemoglobin A1c 11.3 H Calcium 8.4 L POC WB Ioniz Calcium Magnesium 3.0 H Alkaline Phosphatase Globulin Beta-Hydroxybutyrate 09/11/21 09/11/21 09/11/21 19:40 15:29 15:29 WBC RBC Hgb Hct MCV MCHC MPV Neut % (Auto) Lymph % (Auto) Lymph # (Auto) [place] # (Auto) Absolute Neutrophils ABG Methemoglobin 0.1 L VBG pH 7.28 L VBG pO2 50.1 H VBG HCO3 21.6 L VBG Total CO2 23.1 L VBG O2 Saturation 76.2 H VBG Base Excess -5 L VBG Lactic Acid Carboxyhemoglobin 3.8 H Total Hemoglobin 11.4 L POC Sodium 116 L* Sodium 118 L* POC Chloride 69 L Chloride 68 L Carbon Dioxide Anion Gap 23.0 H POC BUN 40 H BUN 40 H Creatinine 2.5 H POC Creatinine 2.4 H Glucose 1099 H* POC Glucose > 700 H* Hemoglobin A1c Calcium 8.2 L POC WB Ioniz Calcium 1.00 L Magnesium Alkaline Phosphatase 149 H Globulin 3.8 H Beta-Hydroxybutyrate 11.78 H 09/11/21 15:29 WBC 12.9 H RBC 4.05 L Hgb 11.7 L Hct MCV 104.0 H MCHC 27.8 L MPV 11.2 H Neut % (Auto) 92.5 H Lymph % (Auto) 4.5 L Lymph # (Auto) 0.58 L [place] # (Auto) Absolute Neutrophils 11.98 H ABG Methemoglobin VBG pH VBG pO2 VBG HCO3 VBG Total CO2 VBG O2 Saturation VBG Base Excess VBG Lactic Acid Carboxyhemoglobin Total Hemoglobin POC Sodium Sodium POC Chloride Chloride Carbon Dioxide Anion Gap POC BUN BUN Creatinine POC Creatinine Glucose POC Glucose Hemoglobin A1c Calcium POC WB Ioniz Calcium Magnesium Alkaline Phosphatase Globulin Beta-Hydroxybutyrate Meds: Medications Al Hydrox/Mg Hydrox/Simethicone (Mag Hydrox/Al Hydrox/Simeth 30 Ml Oral.Susp) 30 ml PO Q4-6HP PRN PRN Reason: Dyspepsia Last Admin: 09/12/21 00:35 Dose: 30 ml Documented by: Albuterol/Ipratropium (Ipratropium/Albuterol 3 Ml Ampul.Neb) 3 ml NEB Q4HRT PRN PRN Reason: Wheezing Atorvastatin Calcium (Atorvastatin 40 Mg Tablet) 40 mg PO HS [facility] Last Admin: 09/11/21 22:44 Dose: Not Given Documented by: Carvedilol (Carvedilol 3.125 Mg Tablet) 3.125 mg PO BIDCC [facility] Clonidine HCl (Clonidine Tts 2 1 Patch Patch) 1 patch TD QWEEK [facility] Diagnostic Test (Pha) (Accu-Chek 1 Each Strip) 1 each FS Q1 [facility] Last Admin: 09/12/21 07:24 Dose: 1 each Documented by: Diagnostic Test (Pha) (Accu-Chek 1 Each Strip) 1 each FS ACHS [facility] Docusate Sodium (Docusate Sodium 100 Mg Capsule) 100 mg PO BID [facility] Last Admin: 09/11/21 22:44 Dose: Not Given Documented by: Fluoxetine HCl (Fluoxetine Hcl 10 Mg Capsule) 20 mg PO DAILY [facility] Heparin Sodium (Porcine) (Heparin 5,000 Unit/Ml Vial) 5,000 unit SQ Q12 [facility] Last Admin: 09/12/21 00:25 Dose: 5,000 unit Documented by: Potassium Chloride/Sodium Chloride (Nacl 0.9% W/Kcl 20meq 1000ml) 1,000 mls @ 250 mls/hr IV .Q4H [facility] Last Admin: 09/12/21 06:03 Dose: Not Given Documented by: Potassium Chloride/Dextrose/Sod Cl (Dextrose 5%-1/2ns W/20meq Kcl) 1,000 mls @ 250 mls/hr IV .Q4H [facility] Last Admin: 09/12/21 07:13 Dose: 250 mls/hr Documented by: Insulin Human Regular 50 unit/ (Sodium Chloride) 100 mls @ 0 mls/hr IV DUR [facility]; Protocol Last Titration: 09/12/21 07:33 Dose: 2 unit/hr, 4 mls/hr Documented by: Lisinopril (Lisinopril 10 Mg Tablet) 10 mg PO QDAY [facility] Lorazepam (Lorazepam 1 Mg Tablet) 1 - 2 mg PO DAILYP PRN PRN Reason: Anxiety Morphine Sulfate (Morphine 4 Mg/Ml Vial) 4 mg IV Q4HP PRN; Protocol PRN Reason: Per Pain Protocol Ondansetron HCl (Ondansetron 4 Mg/2 Ml Vial) 4 mg IV Q4-6HP PRN; Protocol PRN Reason: Nausea And Vomiting Last Admin: 09/11/21 23:41 Dose: 4 mg Documented by: Pantoprazole Sodium (Pantoprazole 40 Mg Vial) 40 mg IV QAMAC [facility] Last Admin: 09/12/21 07:16 Dose: 40 mg Documented by: Senna (Sennosides 1 Tablet) 1 tab PO DAILYP PRN PRN Reason: Constipation Sodium Chloride (0.9 % Sodium Chloride 10 Ml Syringe) 10 ml IV Q8 [facility] Last Admin: 09/12/21 05:39 Dose: 10 ml Documented by: Sucralfate (Sucralfate 1 Gm/10 Ml Oral.Susp) 1 gm PO TIDAC [facility] Last Admin: 09/12/21 07:16 Dose: 1 gm Documented by: ABG Interpretation ABG results: 09/11/21 09/11/21 09/12/21 15:29 21:58 04:02 ABG Methemoglobin 0.1 L 0.3 L 0.3 L VBG pH 7.28 L 7.50 H 7.55 H VBG pCO2 47.0 50.6 48.5 VBG pO2 50.1 H 74.1 H 72.8 H VBG HCO3 21.6 L 38.5 H 41.3 H* VBG Total CO2 23.1 L 40.0 H 42.8 H* VBG O2 Saturation 76.2 H 90.9 H 92.0 H VBG Base Excess -5 L 14 H 17 H A/P Assessment and plan (1) GERD (gastroesophageal reflux disease): Status: Chronic Qualifiers: Esophagitis presence: esophagitis presence not specified Qualified Code(s): K21.9 - Gastro-esophageal reflux disease without esophagitis (2) Hypertension, essential: Status: Chronic Comment: labile due to unpredictable Rx absorption with gastroparesis and propensity for dehydration Holds lisinopril if persistent vomiting occurs (3) Hyperlipidemia: Status: Chronic (4) Type 1 diabetes mellitus with stage 3 chronic kidney disease and hypertension: Status: Chronic Comment: As above (5) Stage 2 acute kidney injury: Status: Acute (6) DKA (diabetic ketoacidosis): Status: Acute (7) Hyponatremia: Status: Acute Narrative A/P Narrative: Assessment and Plans: 1. 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 Hyponatremia: IV fluid replacement, saline lock at 0930 CMP daily to trend serum sodium level 3. Stage 2 acute kidney injury associated with CKD III: Avoid nephrotoxic agents IV fluid for now, saline lock at 0930 CMP in the morning to trend kidney functions 4. Essential HTN: Coreg Lisinopril Hold diuretics while giving IV fluid 5. Mixed dyslipidemia: Statin therapy 6. GERD: Protonix 40mg IV daily GI ppx: Protonix 40mg IV daily DVT ppx: Heparin Code status: Full Prognosis: guarded Disposition: inpatient ICU Critical Care Time: 1hr Time Spent With Patient Time: Total time spent is greater than 50% in coordination of care (as documented) at patient's floor/unit and/or counseling patient: Total time spent with greater than 50% in coordination of care (as documented) at patient's floor/unit and/or counseling patient:: Greater than 35 minutes QUALITY VTE Deep Vein Thrombosis/Pulmonary Embolism Present on Admission: No
[2021-09-12] MEDS ORDERED: CARVEDILOL 3.125 MG TABLET PO SCH (08:00)
[2021-09-12] MEDS: FLUoxetine HCL 10 MG CAPSULE PO SCH (10:10)
[2021-09-12] MEDS: LISINOPRIL 10 MG TABLET PO SCH (10:11)
[2021-09-12] MEDS: DOCUSATE SODIUM 100 MG CAPSULE PO SCH ×2 (10:11→22:01)
[2021-09-12 10:27] LABS: ABG Methemoglobin 0.3 % (0.4-1.5); Total Hemoglobin 10.5 gm/Dl (13.5-16.5); VBG Base Excess 9 (-2-3); VBG Oxygen Saturation 82.2 % (40.0-70.0); VBG PCO2 51.4 mmHg (41.0-51.0); VBG PH 7.44 U (7.32-7.42); VBG PO2 50.8 mmHg (25.0-40.0); VBG Total CO2 35.6 mmol/L (25.0-29.0)
[2021-09-12] MEDS: LORazepam 1 MG TABLET PO PRN ×2 (10:34→22:01)
[2021-09-12 10:41] LABS: Appearance,Urine Clear (Clear); Bilirubin,Urine Negative (Negative); Color,Urine Yellow; Culture Indicated,Urine yes; Ketones,Urine Negative (Negative); Leukocyte Esterase,Urine Trace /uL (Negative); Nitrate,Urine Negative (Negative); PH,Urine 8.5 (5.0-9.0); Specific Gravity,Urine 1.015 (1.000-1.035); Urine Blood Negative ery/mcL (Negative); Urine RBC 2 /hpf (0-3); Urine Squamous Epithelial Cell < 1 /hpf (0-4); Urine WBC 16 /hpf (0-4); Urobilinogen,Urine Normal
--- NOTE | 2021-09-12 13:31 | Internal Med Progress Note ---
SUBJECTIVE Subjective Patient information: Note initiated : 09/12/21 at 1:24 pm Service Date, if different from initiated Date: [] Patient: Mauri Levine 35 y/o M admitted on 09/11/21 for Nausea/Vomiting. Chief Complaint: [] Interval history: Mr. Levine is a 35 year old M history of type 1 diabetes mellitus status post insulin pump as well as essential hypertension, frequent hospital admission for DKA, presenting with 3-day history of nausea vomiting and abdominal pain. Patient claims that he has been compliant to his medications and his insulin pump has been working properly to his known agent. Anyway, he is committing of 3-day history of nausea vomiting as well as diffuse moderate constant abdominal pain. He is also committing of decreased appetite and he can barely tolerate any oral intake. He denies any fever chills or diaphoresis. He denies any chest pain or trouble breathing. Due to the nonresolving and worsening nature of his symptoms, he decided to come to our ED for further evaluations. Labs significant for leukocytosis with WBC 12.9. Electrolytes showing serum sodium level of 118, serum bicarb of 21, and anion gap of 23. Serum creatinine level 2.5. Blood glucose level 1099. Beta hydroxybutyrate 11.78. pH 7.28. Founding suggestive of diabetic ketoacidosis. 09/12: Fasting glucose 111. Anion gap closed at 10. Patient feeling much better, denies nausea vomiting or abdominal pain. Will start transition from insulin drip to insulin pump with 2 hour overlap. Will saline lock and feed patient with CC diet at 0930. 09/13 Physical exam Constitutional: no fever, fatigue, or weight loss Eyes: no vision changes or pain Cardiovascular: no chest pain, no palpitations Respiratory: no cough or dyspnea Gastrointestinal: no abdominal pain, no nausea, vomiting, or diarrhea Genitourinary: no dysuria or difficulty voiding Musculoskeletal: no arthralgia or myalgia Integumentary: no skin lesion or wound Neurological: no focal weakness or numbness Psychiatric: no anxiety or depression Constitutional Vitals: Vital Signs Temp Pulse Resp BP Pulse Ox 98.9 F 72 17 140/77 97 09/12/21 12:04 09/12/21 08:01 09/12/21 12:06 09/12/21 12:04 09/12/21 12:04 Period Temp Pulse Resp BP Sys/Menard Pulse Ox Last 24 Hr 97 F-98.9 F 72-108 0-26 94-186/51-101 94-100 Intake and Output 09/11/21 09/12/21 09/12/21 21:59 05:59 13:59 Intake Total 7 1363 2674 Output Total 750 1300 Balance 2066 613 1374 Weight 69.882 kg 69.882 kg Patient Weight 09/13/21 05:59 Weight 69.882 kg Intake & Output: Intake & Output 09/11/21 09/12/21 09/12/21 21:59 05:59 13:59 Intake Total 2066 1363 2674 Output Total 750 1300 Balance 2066 613 1374 Weight 69.882 kg 69.882 kg Intake: IV 2066 1363 1594 Sodium Chloride 0.9% 1,000 ml @ 200 Wide Open IV [facility] Rx#: [id number] Dextrose 5%-1/2Ns W/20Meq KCl 1 1575 ,000 ml @ 250 mls/hr IV .Q4H [facility] Rx#:[id number] HumuLIN R 50 UNIT In Sodium 67 163 19 Chloride 0.9% 99.5 ml @ Per Protocol IV DUR [facility] Rx#: [id number] Lactated Ringers 1,000 ml @ 2000 Wide Open IV [facility] Rx#: [id number] NaCl 0.9% W/KCl 20Meq 1000ML 1, 1000 000 ml @ 250 mls/hr IV .Q4H [facility] Rx#:[id number] Oral 0 1080 Output: Urine Catheter Amount 300 Void Amount 750 1000 Other: Meal Breakfast Percent of Meal Consumed 100% Feeding Ability Independent Urine Appearance Clear Clear Urine Color Pale Pale Urine Odor Normal OBJ DATA Labs CBC & Chem 7: 09/12/21 04:02 09/12/21 04:02 Labs: Abnormal Lab Results 09/12/21 09/12/21 09/12/21 10:05 09:29 04:02 WBC 17.4 H RBC 3.27 L Hgb 9.5 L Hct 27.3 L MCV MCHC MPV Neut % (Auto) Lymph % (Auto) Lymph # (Auto) [place] # (Auto) 1.61 H Absolute Neutrophils 12.37 H ABG Methemoglobin 0.3 L VBG pH 7.44 H VBG pCO2 51.4 H VBG pO2 50.8 H VBG HCO3 34.0 H VBG Total CO2 35.6 H VBG O2 Saturation 82.2 H VBG Base Excess 9 H VBG Lactic Acid Carboxyhemoglobin 4.5 H Total Hemoglobin 10.5 L POC Sodium Sodium POC Chloride Chloride Carbon Dioxide Anion Gap POC BUN BUN Creatinine POC Creatinine Glucose POC Glucose Hemoglobin A1c Calcium POC WB Ioniz Calcium Magnesium Alkaline Phosphatase Globulin Beta-Hydroxybutyrate Urine Protein 30 mg/dl A Urine Glucose (UA) 250 mg/dl A Ur Leukocyte Esterase Trace A Urine WBC 16 H 09/12/21 09/12/21 09/11/21 04:02 04:02 21:58 WBC RBC Hgb Hct MCV MCHC MPV Neut % (Auto) Lymph % (Auto) Lymph # (Auto) [place] # (Auto) Absolute Neutrophils ABG Methemoglobin 0.3 L 0.3 L VBG pH 7.55 H 7.50 H VBG pCO2 VBG pO2 72.8 H 74.1 H VBG HCO3 41.3 H* 38.5 H VBG Total CO2 42.8 H* 40.0 H VBG O2 Saturation 92.0 H 90.9 H VBG Base Excess 17 H 14 H VBG Lactic Acid Carboxyhemoglobin 3.6 H 4.5 H Total Hemoglobin 9.2 L 9.5 L POC Sodium Sodium 132 L POC Chloride Chloride 88 L Carbon Dioxide 34 H Anion Gap POC BUN BUN Creatinine POC Creatinine Glucose POC Glucose Hemoglobin A1c Calcium POC WB Ioniz Calcium Magnesium 2.9 H Alkaline Phosphatase Globulin Beta-Hydroxybutyrate Urine Protein Urine Glucose (UA) Ur Leukocyte Esterase Urine WBC 09/11/21 09/11/21 09/11/21 21:58 19:40 19:40 WBC RBC Hgb Hct MCV MCHC MPV Neut % (Auto) Lymph % (Auto) Lymph # (Auto) [place] # (Auto) Absolute Neutrophils ABG Methemoglobin VBG pH VBG pCO2 VBG pO2 VBG HCO3 VBG Total CO2 VBG O2 Saturation VBG Base Excess VBG Lactic Acid 3.7 H Carboxyhemoglobin Total Hemoglobin POC Sodium Sodium 122 L 118 L* POC Chloride Chloride 73 L 68 L Carbon Dioxide 32 H Anion Gap 17.0 H 23.0 H POC BUN BUN 39 H 40 H Creatinine 2.7 H 2.5 H POC Creatinine Glucose 818 H* 1099 H* POC Glucose Hemoglobin A1c 11.3 H Calcium 8.4 L 8.2 L POC WB Ioniz Calcium Magnesium 3.0 H Alkaline Phosphatase Globulin Beta-Hydroxybutyrate Urine Protein Urine Glucose (UA) Ur Leukocyte Esterase Urine WBC 09/11/21 09/11/21 09/11/21 15:29 15:29 15:29 WBC 12.9 H RBC 4.05 L Hgb 11.7 L Hct MCV 104.0 H MCHC 27.8 L MPV 11.2 H Neut % (Auto) 92.5 H Lymph % (Auto) 4.5 L Lymph # (Auto) 0.58 L [place] # (Auto) Absolute Neutrophils 11.98 H ABG Methemoglobin 0.1 L VBG pH 7.28 L VBG pCO2 VBG pO2 50.1 H VBG HCO3 21.6 L VBG Total CO2 23.1 L VBG O2 Saturation 76.2 H VBG Base Excess -5 L VBG Lactic Acid Carboxyhemoglobin 3.8 H Total Hemoglobin 11.4 L POC Sodium 116 L* Sodium POC Chloride 69 L Chloride Carbon Dioxide Anion Gap POC BUN 40 H BUN Creatinine POC Creatinine 2.4 H Glucose POC Glucose > 700 H* Hemoglobin A1c Calcium POC WB Ioniz Calcium 1.00 L Magnesium Alkaline Phosphatase 149 H Globulin 3.8 H Beta-Hydroxybutyrate 11.78 H Urine Protein Urine Glucose (UA) Ur Leukocyte Esterase Urine WBC Meds: Medications Al Hydrox/Mg Hydrox/Simethicone (Mag Hydrox/Al Hydrox/Simeth 30 Ml Oral.Susp) 30 ml PO Q4-6HP PRN PRN Reason: Dyspepsia Last Admin: 09/12/21 00:35 Dose: 30 ml Documented by: Albuterol/Ipratropium (Ipratropium/Albuterol 3 Ml Ampul.Neb) 3 ml NEB Q4HRT PRN PRN Reason: Wheezing Atorvastatin Calcium (Atorvastatin 40 Mg Tablet) 40 mg PO HS [facility] Last Admin: 09/11/21 22:44 Dose: Not Given Documented by: Carvedilol (Carvedilol 3.125 Mg Tablet) 3.125 mg PO BIDCC [facility] Last Admin: 09/12/21 10:11 Dose: 3.125 mg Documented by: Clonidine HCl (Clonidine Tts 2 1 Patch Patch) 1 patch TD QWEEK [facility] Diagnostic Test (Pha) (Accu-Chek 1 Each Strip) 1 each FS ACHS [facility] Last Admin: 09/12/21 12:07 Dose: 1 each Documented by: Docusate Sodium (Docusate Sodium 100 Mg Capsule) 100 mg PO BID [facility] Last Admin: 09/12/21 10:11 Dose: Not Given Documented by: Fluoxetine HCl (Fluoxetine Hcl 10 Mg Capsule) 20 mg PO DAILY [facility] Last Admin: 09/12/21 10:10 Dose: 20 mg Documented by: Heparin Sodium (Porcine) (Heparin 5,000 Unit/Ml Vial) 5,000 unit SQ Q12 [facility] Last Admin: 09/12/21 10:11 Dose: 5,000 unit Documented by: Lisinopril (Lisinopril 10 Mg Tablet) 10 mg PO QDAY [facility] Last Admin: 09/12/21 10:11 Dose: 10 mg Documented by: Lorazepam (Lorazepam 1 Mg Tablet) 1 - 2 mg PO DAILYP PRN PRN Reason: Anxiety Last Admin: 09/12/21 10:34 Dose: 1 mg Documented by: Morphine Sulfate (Morphine 4 Mg/Ml Vial) 4 mg IV Q4HP PRN; Protocol PRN Reason: Per Pain Protocol Ondansetron HCl (Ondansetron 4 Mg/2 Ml Vial) 4 mg IV Q4-6HP PRN; Protocol PRN Reason: Nausea And Vomiting Last Admin: 09/11/21 23:41 Dose: 4 mg Documented by: Pantoprazole Sodium (Pantoprazole 40 Mg Vial) 40 mg IV QAMAC [facility] Last Admin: 09/12/21 07:16 Dose: 40 mg Documented by: Senna (Sennosides 1 Tablet) 1 tab PO DAILYP PRN PRN Reason: Constipation Sodium Chloride (0.9 % Sodium Chloride 10 Ml Syringe) 10 ml IV Q8 [facility] Last Admin: 09/12/21 05:39 Dose: 10 ml Documented by: Sucralfate (Sucralfate 1 Gm/10 Ml Oral.Susp) 1 gm PO TIDAC [facility] Last Admin: 09/12/21 12:07 Dose: 1 gm Documented by: ABG Interpretation ABG results: 09/11/21 09/11/21 09/12/21 15:29 21:58 04:02 ABG Methemoglobin 0.1 L 0.3 L 0.3 L VBG pH 7.28 L 7.50 H 7.55 H VBG pCO2 47.0 50.6 48.5 VBG pO2 50.1 H 74.1 H 72.8 H VBG HCO3 21.6 L 38.5 H 41.3 H* VBG Total CO2 23.1 L 40.0 H 42.8 H* VBG O2 Saturation 76.2 H 90.9 H 92.0 H VBG Base Excess -5 L 14 H 17 H 09/12/21 10:05 ABG Methemoglobin 0.3 L VBG pH 7.44 H VBG pCO2 51.4 H VBG pO2 50.8 H VBG HCO3 34.0 H VBG Total CO2 35.6 H VBG O2 Saturation 82.2 H VBG Base Excess 9 H A/P Narrative A/P Narrative: Assessment:35 year old M history of type 1 diabetes mellitus status post insulin pump as well as essential hypertension, frequent hospital admissions for DKA admitted for recurrent DKA. #Resolving diabetic ketoacidosis #Type 1 diabetes mellitus, poorly controlled -Hemoglobin A1c 11.3. -On insulin pump. #Leukocytosis #Chronic kidney disease stage IIIb-IV #Hypertension #Hyponatremia #Documented diabetic gastroparesis #Diabetic peripheral neuropathy #Diabetic retinopathy #Recurrent hospitalizations for DKA Plan -Monitor glucose while on home insulin pump. -Monitor renal function, urine output. -Follow all cultures. -Follow WBC, electrolytes. -Essential home medications. -Diabetic diet. -Endocrinology follow-up/referral after hospital discharge. -DVT PPx: Heparin SQ -CODE STATUS: Full -Disposition: Home when stable Time Spent With Patient Time: Total time spent is greater than 50% in coordination of care (as documented) at patient's floor/unit and/or counseling patient: QUALITY VTE Deep Vein Thrombosis/Pulmonary Embolism Present on Admission: No
[2021-09-12] MEDS ORDERED: DEXTROSE 50% 50 ML VIAL IV PRN (16:17)
[2021-09-12] MEDS ORDERED: DEXTROSE 31 GM ORAL.SUSP PO PRN (16:17)
[2021-09-12] MEDS: INSULIN LISPRO 1 UNIT/0.01 ML UNIT SQ SCH ×2 (16:34→22:01)
[2021-09-12] MEDS ORDERED: INSULIN LISPRO 1 UNIT/0.01 ML UNIT SQ ONE (16:40)
[2021-09-12 16:42] LABS: ABG Methemoglobin 0.3 % (0.4-1.5); Total Hemoglobin 9.1 gm/Dl (13.5-16.5); VBG Base Excess 7 (-2-3); VBG HCO3 31.1 mmol/L (24.0-28.0); VBG Oxygen Saturation 89.8 % (40.0-70.0); VBG PCO2 45.5 mmHg (41.0-51.0); VBG PH 7.45 U (7.32-7.42); VBG PO2 70.2 mmHg (25.0-40.0); VBG Total CO2 32.5 mmol/L (25.0-29.0)
[2021-09-12] MEDS: CARVEDILOL 6.25 MG TABLET PO SCH (17:26)
[2021-09-12] MEDS: ATORVASTATIN 40 MG TABLET PO SCH (22:01)
[2021-09-12 22:19] LABS: ABG Methemoglobin 0.3 % (0.4-1.5); Total Hemoglobin 9.3 gm/Dl (13.5-16.5); VBG Base Excess 6 (-2-3); VBG HCO3 30.8 mmol/L (24.0-28.0); VBG Oxygen Saturation 79.7 % (40.0-70.0); VBG PCO2 48.4 mmHg (41.0-51.0); VBG PH 7.42 U (7.32-7.42); VBG PO2 48.3 mmHg (25.0-40.0); VBG Total CO2 32.2 mmol/L (25.0-29.0)
[2021-09-13 04:18] LABS: ABG Methemoglobin 0.3 % (0.4-1.5); VBG Base Excess 8 (-2-3); VBG HCO3 32.1 mmol/L (24.0-28.0); VBG Oxygen Saturation 83.6 % (40.0-70.0); VBG PCO2 45.8 mmHg (41.0-51.0); VBG PH 7.46 U (7.32-7.42); VBG Total CO2 33.5 mmol/L (25.0-29.0)
[2021-09-13 04:19] LABS: Basophils # (Auto) 0.04 K/mcL (0.00-0.30); Basophils % (Auto) 0.4 % (0.0-2.0); Eosinophils # (Auto) 0.03 K/mcL (0.00-0.70); Eosinophils % (Auto) 0.3 % (0.0-7.0); Hemoglobin 9.1 g/dL (13.7-17.5); Lymphocytes % (Auto) 23.8 % (15.5-49.0); Mean Cell Volume 87.1 fL (80.0-100.0); Mean Corpuscular HGB Conc 33.7 g/dL (31.0-36.0); Mean Platelet Volume 10.5 fL (7.4-10.4); Monocytes # (Auto) 0.51 K/mcL (0.10-0.90); Monocytes % (Auto) 4.9 % (1.0-12.0); Neutrophils % (Auto) 70.6 % (38.0-78.0); Platelet Count 277 K/mcL (140-440); Red Cell Distribution Width 13.9 % (11.5-14.5); WBC 10.5 K/mcL (4.5-11.0)
[2021-09-13 04:38] LABS: ALT/SGPT 25 U/L (<40); AST/SGOT 34 U/L (<40); Albumin 3.1 gm/dL (3.2-5.2); Albumin/Globulin Ratio 1.1 (1.0-2.3); Alkaline Phosphatase 103 U/L (39-117); Bilirubin,Direct < 0.2 mg/dL (0-0.3); Bilirubin,Total 0.3 mg/dL (0.1-1.0); Blood Urea Nitrogen 25 mg/dL (6-20); Calcium 8.3 mg/dL (8.6-10.4); Carbon Dioxide 27 mmol/L (22-30); Chloride 90 mmol/L (96-108); Globulin 2.8 gm/dL (2.2-3.7); Glomerular Filtration Rate 42; Glucose 226 mg/dL (70-105); Lactate Dehydrogenase 191 U/L (135-225); Phosphorous 2.7 mg/dL (2.5-4.5); Triglycerides 164 mg/dL (<150); Uric Acid 5.1 mg/dL (2.5-8.0)
[2021-09-13] MEDS: INSULIN LISPRO 1 UNIT/0.01 ML UNIT SQ SCH ×2 (07:54→11:43)
[2021-09-13] MEDS: LORazepam 1 MG TABLET PO PRN (08:03)
[2021-09-13] MEDS: SUCRALFATE 1 GM/10 ML ORAL.SUSP PO SCH (08:03)
[2021-09-13] MEDS: CARVEDILOL 6.25 MG TABLET PO SCH (08:03)
[2021-09-13] MEDS: HEPARIN 5,000 UNIT/ML VIAL SQ SCH (08:03)
[2021-09-13] MEDS: FLUoxetine HCL 10 MG CAPSULE PO SCH (08:03)
[2021-09-13] MEDS: PANTOPRAZOLE 40 MG VIAL IV SCH (08:03)
[2021-09-13] MEDS: LISINOPRIL 10 MG TABLET PO SCH (08:03)
[2021-09-13] MEDS: 0.9 % SODIUM CHLORIDE 10 ML SYRINGE IV SCH (08:04)
[2021-09-13] MEDS: DOCUSATE SODIUM 100 MG CAPSULE PO SCH (08:04)
[2021-09-13 10:14] LABS: ABG Methemoglobin 0 % (0.4-1.5); Total Hemoglobin 9.7 gm/Dl (13.5-16.5); VBG Base Excess 4 (-2-3); VBG HCO3 29.1 mmol/L (24.0-28.0); VBG Oxygen Saturation 76.1 % (40.0-70.0); VBG PH 7.42 U (7.32-7.42); VBG PO2 43.6 mmHg (25.0-40.0); VBG Total CO2 30.5 mmol/L (25.0-29.0)
--- NOTE | 2021-09-13 11:04 | Discharge Summary ---
Discharge Provider Provider Patient information: Note initiated : 09/13/21 at 11:03 am Service Date, if different from initiated Date: [] Patient: Mauri Levine 35 y/o M admitted on 09/11/21 for Nausea/Vomiting. Chief Complaint: [] Date of admission: 09/11/21 21:35 Discharge date: 09/13/21 Primary care physician: Flo Peña MD Consults: 09/11/21 Consult to Physician [CONS] Stat Comment: Consulting Provider: Mustapha Freeman Reason For Exam: Physician to Consult Discharge Meds Discharge Medications Home Medications insulin aspart U-100 100 unit/mL subcutaneous solution (Novolog U-100 Insulin aspart) See Rx Instructions .ROUTE .COMPLEX 03/26/21 [History Confirmed 09/12/21 Last Taken 06/04/21 18:00] lisinopril 10 mg tablet 10 mg PO QDAY #90 tab 07/01/21 [Rx Confirmed 09/12/21 Last Taken Unknown] furosemide 20 mg tablet 20 mg PO QAM PRN 08/03/21 [History Confirmed 09/12/21 Last Taken Unknown] carvedilol 6.25 mg tablet 6.25 mg PO BID 08/21/21 [History Confirmed 09/12/21 Last Taken Unknown] fluoxetine 10 mg capsule 20 mg PO DAILY 08/21/21 [History Confirmed 09/12/21 Last Taken Unknown] Dexcom sensor & monitor #1 ea 08/27/21 [Rx Confirmed 09/12/21 Last Taken Unknown] acetone (urine) test (Ketone Urine Test) #100 ea 09/10/21 [Rx Confirmed 09/12/21 Last Taken Unknown] blood sugar diagnostic (Blood Glucose Test) #500 ea 09/10/21 [Rx Confirmed 09/12/21 Last Taken Unknown] blood-glucose meter #1 ea 09/10/21 [Rx Confirmed 09/12/21 Last Taken Unknown] glucagon 3 mg/actuation nasal spray 3 mg INTRANASAL ONCE PRN #2 ea 09/10/21 [Rx Confirmed 09/12/21 Last Taken Unknown] lancets #500 ea 09/10/21 [Rx Confirmed 09/12/21 Last Taken Unknown] lorazepam 1 mg tablet 1 mg PO QDAY 09/12/21 [History Confirmed 09/12/21 Last Taken Unknown] COURSE Hospital Course Hospital course: Mr. Levine is a 35 year old M history of type 1 diabetes mellitus status post insulin pump as well as essential hypertension, frequent hospital admission for DKA, presenting with 3-day history of nausea vomiting and abdominal pain. Patient claims that he has been compliant to his medications and his insulin pump has been working properly to his known agent. Anyway, he is committing of 3-day history of nausea vomiting as well as diffuse moderate constant abdominal pain. He is also committing of decreased appetite and he can barely tolerate any oral intake. He denies any fever chills or diaphoresis. He denies any chest pain or trouble breathing. Due to the nonresolving and worsening nature of his symptoms, he decided to come to our ED for further evaluations. Labs significant for leukocytosis with WBC 12.9. Electrolytes showing serum sodium level of 118, serum bicarb of 21, and anion gap of 23. Serum creatinine level 2.5. Blood gl ucose level 1099. Beta hydroxybutyrate 11.78. pH 7.28. Founding suggestive of diabetic ketoacidosis. 09/12: Fasting glucose 111. Anion gap closed at 10. Patient feeling much better, denies nausea vomiting or abdominal pain. Will start transition from insulin drip to insulin pump with 2 hour overlap. Will saline lock and feed patient with CC diet at 0930. 09/13 DKA resolved, the patient recovered from DKA faster than expecte. Now back on insulin pump, eating, completely independent with ADLs and anxious to discharge home, says he will leave against medical advice if not discharged today. Sodium lower than yesterday but labs today otherwise look ok. Discharged to home. Physical exam Constitutional: no fever, fatigue, or weight loss Eyes: no vision changes or pain Cardiovascular: no chest pain, no palpitations Respiratory: no cough or dyspnea Gastrointestinal: no abdominal pain, no nausea, vomiting, or diarrhea Genitourinary: no dysuria or difficulty voiding Musculoskeletal: no arthralgia or myalgia Integumentary: no skin lesion or wound Neurological: no focal weakness or numbness Psychiatric: no anxiety or depression Discharge diagnosis: Diabetic ketoacidosis Time Spent with Patient Time attestation: Total time spent providing and/or coordinating discharge services: EXAM Constitutional Vitals: Temp Pulse Resp BP Pulse Ox 99.4 F H 70 20 121/73 100 09/13/21 08:08 09/13/21 09:17 09/13/21 10:24 09/13/21 10:24 09/13/21 10:24 Discharge Data Data Completed and Pending Labs on day of discharge: Labs from last 24 hours 09/13/21 09/13/21 09/13/21 09:46 03:55 03:55 WBC 10.5 RBC 3.10 L Hgb 9.1 L Hct 27.0 L MCV 87.1 MCH 29.4 MCHC 33.7 RDW 13.9 Plt Count 277 MPV 10.5 H Neut % (Auto) 70.6 Lymph % (Auto) 23.8 [place] % (Auto) 4.9 Eos % (Auto) 0.3 Baso % (Auto) 0.4 Lymph # (Auto) 2.50 [place] # (Auto) 0.51 Eos # (Auto) 0.03 Baso # (Auto) 0.04 Absolute Neutrophils 7.43 ABG Methemoglobin 0 L VBG pH 7.42 VBG pCO2 46.0 VBG pO2 43.6 H VBG HCO3 29.1 H VBG Total CO2 30.5 H VBG O2 Saturation 76.1 H VBG Base Excess 4 H Carboxyhemoglobin 4.2 H Total Hemoglobin 9.7 L Sodium 127 L Potassium 4.9 Chloride 90 L Carbon Dioxide 27 Anion Gap 10.0 BUN 25 H Creatinine 2.0 H GFR Calculation 42 Glucose 226 H Uric Acid 5.1 Calcium 8.3 L Phosphorus 2.7 Magnesium 2.2 Total Bilirubin 0.3 Direct Bilirubin < 0.2 GGT 23 AST 34 ALT 25 Alkaline Phosphatase 103 Lactate Dehydrogenase 191 Total Protein 5.9 Albumin 3.1 L Globulin 2.8 Albumin/Globulin Ratio 1.1 Triglycerides 164 H 09/13/21 09/12/21 09/12/21 03:55 21:58 16:10 WBC RBC Hgb Hct MCV MCH MCHC RDW Plt Count MPV Neut % (Auto) Lymph % (Auto) [place] % (Auto) Eos % (Auto) Baso % (Auto) Lymph # (Auto) [place] # (Auto) Eos # (Auto) Baso # (Auto) Absolute Neutrophils ABG Methemoglobin 0.3 L 0.3 L 0.3 L VBG pH 7.46 H 7.42 7.45 H VBG pCO2 45.8 48.4 45.5 VBG pO2 53.0 H 48.3 H 70.2 H VBG HCO3 32.1 H 30.8 H 31.1 H VBG Total CO2 33.5 H 32.2 H 32.5 H VBG O2 Saturation 83.6 H 79.7 H 89.8 H VBG Base Excess 8 H 6 H 7 H Carboxyhemoglobin 5.6 H 5.0 H 5.1 H Total Hemoglobin 9.0 L 9.3 L 9.1 L Sodium Potassium Chloride Carbon Dioxide Anion Gap BUN Creatinine GFR Calculation Glucose Uric Acid Calcium Phosphorus Magnesium Total Bilirubin Direct Bilirubin GGT AST ALT Alkaline Phosphatase Lactate Dehydrogenase Total Protein Albumin Globulin Albumin/Globulin Ratio Triglycerides Discharge Plan Patient/Caregiver Discharge Instructions Activity: increase activity as tolerated Diet: Consistent Carbohydrate Prescriptions: Continued lisinopril 10 mg tablet 10 mg PO QDAY Qty: 90 1RF Rx Instructions: 1 tab QD noon, if no N/V or dehydration (DME) Dexcom sensor & monitor See Rx Instructions .Route .MEDSUPPLY Qty: 1 0RF Rx Instructions: As directed insulin aspart U-100 [Novolog U-100 Insulin aspart] 100 unit/mL solution See Rx Instructions .ROUTE .COMPLEX 0RF Rx Instructions: use up to 70units daily via insulin pump (DME) blood-glucose meter Misc See Rx Instructions .Route Qty: 1 3RF Rx Instructions: use to test blood sugar 5 times daily (DME) Blood Glucose Test Strip See Rx Instructions .ROUTE .MEDSUPPLY Qty: 500 3RF Rx Instructions: use to test blood sugar 5 times daily (DME) lancets Misc See Rx Instructions .Route Qty: 500 3RF Rx Instructions: use to test blood sugar 5 times daily (DME) Ketone Urine Test Strip See Rx Instructions .Route Qty: 100 0RF Rx Instructions: use to test urine for ketones daily glucagon 3 mg/actuation spray,non-aerosol 3 mg intranasal ONCE PRN (Reason: hypoglycemia) Qty: 2 1RF Rx Instructions: as a single dose furosemide 20 mg Tablet 20 mg PO QAM PRN (Reason: Edema/hypertension) 0RF Rx Instructions: Take on days when you are not vomiting carvedilol 6.25 mg tablet 6.25 mg PO BID 0RF Rx Instructions: must administer with a meal/food fluoxetine 10 mg capsule 20 mg PO DAILY 0RF lorazepam 1 mg tablet 1 mg PO QDAY 0RF Rx Instructions: Take 1-2mg as needed for anxiety every day Follow Up Plan Follow up with: Flo Peña MD [Primary Care Provider] - Patient Disposition: Home, Self-Care Prognosis: Critical Overall status at discharge: patient is progressing back to baseline Discharge Orders: Discharge Order (Routine); Ordered 09/13/21 Ordered By: Anoop Nash QUALITY VTE Deep Vein Thrombosis/Pulmonary Embolism Present on Admission: No
[2021-09-13] MEDS ORDERED: HEPARIN SODIUM,PORCINE/PF 500 UNIT/5 ML SYRINGE IV ONE (11:21)
[2021-09-18] MEDS ORDERED: cloNIDine TTS 2 1 PATCH PATCH TD SCH (09:00)
== END 2021-09-13 12:00 | disposition home or self-care (01) | DRG 638 ==
LOC: ED 14:55 → INTOOBSV 21:35 → ICU 21:35
PROVIDERS: ADMIT Internal Medicine; ATTEND Internal Medicine

== ENCOUNTER 2021-10-29 20:52 | Observation (INO) ==
[2021-10-29] MEDS ORDERED: FAMOTIDINE/PF 20 MG/2 ML VIAL IV ONE (21:05)
[2021-10-29] MEDS ORDERED: ONDANSETRON 4 MG/2 ML VIAL IV ONE (21:05)
[2021-10-29] MEDS ORDERED: 0.9 % SODIUM CHLORIDE 1,000 ML IV ONE ×2 (21:05→21:44)
[2021-10-29 21:27] LABS: POC Calcium, Ionized 0.66 (1.16-1.32); POC Creatinine 3.5 (0.6-1.2); POC Potassium 2.9 (3.3-5.1)
[2021-10-29] MEDS ORDERED: METOCLOPRAMIDE 10 MG/2 ML VIAL IV ONE (21:32)
[2021-10-29] MEDS ORDERED: POTASSIUM CHLORIDE 20 MEQ TABLET PO ONE (21:42)
[2021-10-29] MEDS ORDERED: POTASSIUM CHLORIDE 40 MEQ in DEXTROSE 5% IN WATER 500 ML IV ONE (21:42)
[2021-10-29] MEDS ORDERED: CALCIUM GLUCONATE 4.65 MEQ/10 ML VIAL IV ONE (21:47)
[2021-10-29] MEDS ORDERED: POTASSIUM CHLORIDE 20 MEQ/10 ML VIAL IV ONE (21:54)
[2021-10-29 21:59] LABS: Basophils # (Auto) 0.02 K/mcL (0.00-0.30); Basophils % (Auto) 0.1 % (0.0-2.0); Eosinophils # (Auto) 0 K/mcL (0.00-0.70); Eosinophils % (Auto) 0 % (0.0-7.0); Hematocrit 40.2 % (40.1-51.0); Lymphocytes # (Auto) 1.45 K/mcL (1.50-4.80); Lymphocytes % (Auto) 6.9 % (15.5-49.0); Mean Cell Volume 85.5 fL (80.0-100.0); Mean Corpuscular HGB Conc 34.8 g/dL (31.0-36.0); Mean Platelet Volume 11.3 fL (7.4-10.4); Monocytes # (Auto) 1.79 K/mcL (0.10-0.90); Monocytes % (Auto) 8.6 % (1.0-12.0); Neutrophils % (Auto) 84.4 % (38.0-78.0); Platelet Count 369 K/mcL (140-440); Red Cell Distribution Width 13.2 % (11.5-14.5); WBC 20.9 K/mcL (4.5-11.0)
[2021-10-29] MEDS ORDERED: PROCHLORPERAZINE 10 MG/2 ML VIAL IV ONE (22:06)
[2021-10-29 22:18] LABS: ALT/SGPT 11 U/L (<40); AST/SGOT 21 U/L (<40); Albumin 4.4 gm/dL (3.2-5.2); Alkaline Phosphatase 117 U/L (39-117); Bilirubin,Direct < 0.2 mg/dL (0-0.3); Bilirubin,Total 0.5 mg/dL (0.1-1.0); Globulin 3.5 gm/dL (2.2-3.7)
--- NOTE | 2021-10-29 22:43 | Emergency Department Note ---
HPI General Chief complaint: Blood Sugar Problem Stated complaint: DKA s/sx Time Seen by Provider: 10/29/21 20:58 Source: family Mode of arrival: wheelchair Limitations: no limitations History of Present Illness HPI Narrative: 35-year-old male with history of insulin-dependent diabetes with an insulin pump multiple admissions for DKA presents with nausea vomiting weakness for 3 days. No bile or blood. States is passing gas with normal bowel movement yesterday. However secondary nausea vomiting has not been eating well. No fevers or chills. No abdominal pain. No urinary symptoms of dysuria urgency frequency materia. No nasal congestion sore throat cough. Father is at bedside. Patient states that his blood sugars have been running between 150 and 200 at home. Glucose in the emergency room is 280 Related Data Home Medications Medication Instructions Recorded Confirmed insulin aspart U-100 100 unit/mL See Rx Instructions .ROUTE .COMPLEX 03/26/21 09/17/21 subcutaneous solution (Novolog U-100 Insulin aspart) furosemide 20 mg tablet 20 mg PO QAM PRN 08/03/21 09/17/21 carvedilol 6.25 mg tablet 6.25 mg PO BID 08/21/21 09/17/21 Previous Rx's Medication Instructions Recorded lisinopril 10 mg tablet 10 mg PO QDAY #90 tab 07/01/21 Dexcom sensor & monitor #1 ea 08/27/21 acetone (urine) test (Ketone Urine #100 ea 09/10/21 Test) blood sugar diagnostic (Blood #500 ea 09/10/21 Glucose Test) blood-glucose meter #1 ea 09/10/21 glucagon 3 mg/actuation nasal spray 3 mg INTRANASAL ONCE PRN #2 ea 09/10/21 lancets #500 ea 09/10/21 fluoxetine 20 mg capsule 20 mg PO DAILY #30 cap 09/17/21 lorazepam 1 mg tablet 1 mg PO QPM 30 Days #30 tab 09/17/21 clonidine 0.2 mg/24 hr weekly 1 patch TRANSDERMAL QWEEK #4 ea 10/20/21 transdermal patch Allergies Allergy/AdvReac Type Severity Reaction Status Date / Time NSAIDS (Non-Steroidal Allergy Unknown Unknown Verified 10/29/21 20:56 Anti-Inflamma metoclopramide [From Reglan] AdvReac Mild Agitated Verified 10/29/21 20:56 prochlorperazine AdvReac Mild "My whole Verified 10/29/21 20:56 [From Compazine] body freaks out." silver AdvReac Mild dystonic Verified 10/29/21 20:56 IV iodine contrast Allergy Unknown Unknown Uncoded 09/17/21 11:04 Review of Systems ROS ROS Narrative: 10 point review of system is otherwise negative except as mentioned in HPI. PFS Narrative Patient History Narrative: Narrative: Medical/Surgical/Family History All Active Problems (Updated 10/29/21 @ 23:03 by Gabrielle Clarke MD) DKA (diabetic ketoacidosis) (Acute) Hyponatremia (Acute) Stage 2 acute kidney injury (Acute) Diabetic gastroparesis (Acute) Metabolic alkalosis (Acute) Testosterone deficiency (Chronic) Nausea and vomiting (Chronic) GERD (gastroesophageal reflux disease) (Chronic) Other hammer toe(s) (acquired), left foot (Chronic) Hypertension, essential (Chronic) Hyperlipidemia (Chronic) History of neuroleptic malignant syndrome (Chronic) Dehydration (Acute) Drug-induced nausea and vomiting (Acute) Uncontrolled type 1 diabetes mellitus with diabetic nephropathy, with long-term current use of insulin (Chronic) Cyclic vomiting syndrome (Chronic) Type 1 diabetes mellitus with stage 3 chronic kidney disease and hypertension (Chronic) Marijuana use, continuous (Chronic) CKD (chronic kidney disease) (Acute) Nephrotic range proteinuria (Chronic) Controlled type 1 diabetes mellitus with chronic kidney disease (Chronic) Port-A-Cath in place (Acute) Diabetic gastroparesis associated with type 1 diabetes mellitus (Chronic) Diabetic neuropathy associated with type 1 diabetes mellitus (Chronic) Diabetic retinopathy associated with type 1 diabetes mellitus (Chronic) Anxiety (Chronic) Back pain (Chronic) Physical deconditioning (Chronic) Malnutrition (Chronic) Acute dehydration (Acute) Acute hypokalemia (Acute) QT prolongation (Acute) Dehydration (Acute) No-show for appointment (Acute) Intractable cyclical vomiting with nausea (Acute) Diabetic gastroparesis (Acute) ROSALIO (acute kidney injury) (Acute) Hyperglycemia (Acute) Dehydration (Acute) Major depressive disorder, recurrent (Chronic) Generalized anxiety disorder (Chronic) Trauma and stressor-related disorder (Chronic) Diabetic gastroparesis (Acute) Nausea & vomiting (Acute) Acute dehydration (Acute) Ketosis (Acute) Uncontrolled diabetes mellitus (Acute) DKA (diabetic ketoacidosis) (Acute) Hyperosmolar hyperglycemic state (HHS) (Acute) Medical History Abdominal pain, epigastric Anxiety Back pain Chronic ulcer of left foot Coffee ground emesis Diabetes mellitus type I Age 12, With foot ulcer Diabetic gastroparesis associated with type 1 diabetes mellitus Diabetic neuropathy associated with type 1 diabetes mellitus Diabetic peripheral neuropathy Diabetic retinopathy associated with type 1 diabetes mellitus DKA, type 1 Esophageal candidiasis Gastroenteritis Gastroparesis due to DM GERD (gastroesophageal reflux disease) Hallux valgus (acquired), left foot History of neuroleptic malignant syndrome To compazine (prochlorperazine). Tolerates promethazine without issue Hyperlipidemia Hypertension, essential labile due to unpredictable Rx absorption with gastroparesis and propensity for dehydration Holds lisinopril if persistent vomiting occurs Hypokalemia Connie-[place] tear Malnutrition Marijuana use, continuous Nausea and vomiting Non-pressure chronic ulcer of other part of left foot limited to breakdown of skin Other hammer toe(s) (acquired), left foot Peripheral autonomic neuropathy due to DM Physical deconditioning Sepsis Tardive dyskinesia due to metoclopramide (Reglan) Testosterone deficiency Surgical History History of toe surgery left hallux Family History Mother Atrial fibrillation Essential hypertension Sister Malignant neoplasm of female breast Maternal Grandfather Malignant neoplasm of colon Recorded 11/12/10 Father Essential hypertension Other Adopted DKA, type 1 Social History Smoking Status: Never smoker Alcohol Intake Frequency: former alcohol drinker Substance Use: former substance user Exam Narrative Narrative: (Please note that portions of this note may have been completed with a voice recognition program. Efforts were made to edit the dictations but occasionally words are mis-transcribed) CONSTITUTIONAL: Well-nourished ill-appearing adult male. Appears older than stated age. Resting comfortably in position. Not in acute distress. Non toxic. Awake alert and oriented x3. Cooperative, follows commands. HEAD: Normocephalic. Atraumatic. EYES: EOMI. PERRL ENT: Mucous membranes are dry. No drooling or stridor NECK: Supple. Full range of motion. Trachea midline CARDIOVASCULAR: Adequate peripheral perfusion. S1-S2. Regular rate and rhythm. No murmurs rubs gallops. No JVD. No lower extremity edema. +2 radial pulses bilaterally. PULMONARY: Nonlabored. Speaking full sentences. Clear to auscultation bilaterally. No rhonchi wheeze or crackles. ABDOMINAL: Soft. Nondistended. Nontender. Positive bowel sounds. EXTREMITIES: No gross deformities. Moves all 4 extremities with good strength and tone. SKIN: Warm and dry. No rash. No petechiae. NEUROLOGY: Sensation is intact. No gross focal deficits. GCS of 15 General Limitations: no limitations Course Vital Signs Vital signs: Vital Signs Temperature 36.0 C L 10/29/21 20:52 Pulse Rate 103 H 10/29/21 20:52 Respiratory Rate 10/29/21 20:52 Blood Pressure 119/84 10/29/21 20:52 Pulse Oximetry (%) 100 10/29/21 20:52 Temperature 36.0 C L 10/29/21 20:52 Pulse Rate 100 H 10/29/21 21:01 Respiratory Rate 10/29/21 20:52 Blood Pressure 128/58 10/29/21 21:01 Pulse Oximetry (%) 100 10/29/21 21:01 MDM MDM Narrative Medical decision making narrative: Differential gnosis includes noncompliance with medications diet insulin regimen DKA electrolyte derangement acute renal UTI pyonephritis sepsis bacteremia etc. IV fluid hydration Zofran. Continues to vomit. IV Reglan. Continues to vomit. And so IV Compazine. We will continue to monitor. Twelve-lead EKG per ED MD interpretation does show sinus rhythm at 100 bpm. Unfortunately there is baseline artifact from movement. However normal axis. No ST elevations or depressions. No T wave abnormalities. No ectopy. Abnormal intervals with prolonged QT QTC of 452/484 ms. Will avoid Zofran. Second liter of point and normal saline given. VBG is surprisingly within normal limits with a pH of 7.31, PCO2 of 41, bicarb 24. However labs do show significant derangement potassium 2.9 repleted 40 IV 40 p.o. which she did tolerate. Ionized calcium 0.66 given a gram of IV calcium gluconate. Magnesium normal at 1.9. Acute on chronic renal insufficiency with a BUN of 50 creatinine 3.5. Glucose is 367. CO2 is 42. Anion gap and beta hydroxy are pending. Suspect early DKA. Updated on results clinical impressions treatment plan. Will admit. Agreeable [id number] at length. Dr. Monterroso spoken to. Does request that patient be admitted to the ICU and insulin drip started. Has been ordered. Patient instructed to turn off his insulin pump. Every 1 hour Accu-Cheks and every 2 hour electrolytes were also ordered. CBC did return with a white count of 20,000. Abdomen is benign. Have a low suspicion for acute intra-abdominal process at this time. No imaging. Cultures and lactic chest x-ray have been ordered. UA is pending. Final impressions 1. DKA with acute nausea vomiting on insulin drip 2. acute hypokalemia 3. acute hypocalcemia 4. acute hyponatremia 5. acute on chronic renal insufficiency dispo: admitted obs ICU condition: critical Critical care time is 35 minutes exclusive to this patient and excluding all billable procedures Lab Data Result diagrams: 10/29/21 21:23 10/29/21 21:25 Labs: Lab Results 10/29/21 10/29/21 10/29/21 Range/Units 21:23 21:23 21:24 WBC 20.9 H (4.5-11.0) K/mcL RBC 4.70 (4.63-6.08) M/mcL Hgb 14.0 (13.7-17.5) g/dL Hct 40.2 (40.1-51.0) % POC Hct 45.0 (41-55) MCV 85.5 (80.0-100.0) fL MCH 29.8 (26.0-34.0) pg MCHC 34.8 (31.0-36.0) g/dL RDW 13.2 (11.5-14.5) % Plt Count 369 (140-440) K/mcL MPV 11.3 H (7.4-10.4) fL Neut % (Auto) 84.4 H (38.0-78.0) % Lymph % (Auto) 6.9 L (15.5-49.0) % [place] % (Auto) 8.6 (1.0-12.0) % Eos % (Auto) 0 (0.0-7.0) % Baso % (Auto) 0.1 (0.0-2.0) % Lymph # (Auto) 1.45 L (1.50-4.80) K/mcL [place] # (Auto) 1.79 H (0.10-0.90) K/mcL Eos # (Auto) 0 (0.00-0.70) K/mcL Baso # (Auto) 0.02 (0.00-0.30) K/mcL Absolute Neutrophils 17.62 H (1.80-8.00) K/mcL POC Sodium 124 L (133-145) POC Potassium 2.9 L* (3.3-5.1) POC Chloride 66 L (96-108) POC Total CO2 42.0 H (22-30) POC BUN 50 H (6-20) POC Creatinine 3.5 H (0.6-1.2) POC Glucose 367 H (70-105) POC WB Ioniz Calcium 0.66 L* (1.16-1.32) Magnesium (1.6-2.5) mg/dL Total Bilirubin 0.5 (0.1-1.0) mg/dL Direct Bilirubin < 0.2 (0-0.3) mg/dL AST 21 (<40) U/L ALT 11 (<40) U/L Alkaline Phosphatase 117 (39-117) U/L Total Protein 7.9 (5.9-8.4) gm/dL Albumin 4.4 (3.2-5.2) gm/dL Globulin 3.5 (2.2-3.7) gm/dL Lipase 13 (7-60) U/L 10/29/21 Range/Units 21:25 WBC (4.5-11.0) K/mcL RBC (4.63-6.08) M/mcL Hgb (13.7-17.5) g/dL Hct (40.1-51.0) % POC Hct (41-55) MCV (80.0-100.0) fL MCH (26.0-34.0) pg MCHC (31.0-36.0) g/dL RDW (11.5-14.5) % Plt Count (140-440) K/mcL MPV (7.4-10.4) fL Neut % (Auto) (38.0-78.0) % Lymph % (Auto) (15.5-49.0) % [place] % (Auto) (1.0-12.0) % Eos % (Auto) (0.0-7.0) % Baso % (Auto) (0.0-2.0) % Lymph # (Auto) (1.50-4.80) K/mcL [place] # (Auto) (0.10-0.90) K/mcL Eos # (Auto) (0.00-0.70) K/mcL Baso # (Auto) (0.00-0.30) K/mcL Absolute Neutrophils (1.80-8.00) K/mcL POC Sodium (133-145) POC Potassium (3.3-5.1) POC Chloride (96-108) POC Total CO2 (22-30) POC BUN (6-20) POC Creatinine (0.6-1.2) POC Glucose (70-105) POC WB Ioniz Calcium (1.16-1.32) Magnesium 1.9 (1.6-2.5) mg/dL Total Bilirubin (0.1-1.0) mg/dL Direct Bilirubin (0-0.3) mg/dL AST (<40) U/L ALT (<40) U/L Alkaline Phosphatase (39-117) U/L Total Protein (5.9-8.4) gm/dL Albumin (3.2-5.2) gm/dL Globulin (2.2-3.7) gm/dL Lipase (7-60) U/L Discharge Plan Patient/Caregiver Discharge Instructions Pt seen by FUR TAILOR/PA only: No Clinical Impression: DKA (diabetic ketoacidosis) Patient Disposition: Xfer As Outpt/Obs ([facility]) Condition: Critical Follow up with: Flo Peña MD [Primary Care Provider] - Prescriptions: No Action fluoxetine 20 mg capsule 20 mg PO DAILY Qty: 30 2RF lorazepam 1 mg tablet 1 mg PO QPM 30 Days Qty: 30 2RF Rx Instructions: Take 1-2mg as needed for anxiety every day lisinopril 10 mg tablet 10 mg PO QDAY Qty: 90 1RF Rx Instructions: 1 tab QD noon, if no N/V or dehydration clonidine 0.2 mg/24 hr patch weekly 1 patch transdermal QWEEK Qty: 4 0RF (DME) Dexcom sensor & monitor See Rx Instructions .Route .MEDSUPPLY Qty: 1 0RF Rx Instructions: As directed insulin aspart U-100 [Novolog U-100 Insulin aspart] 100 unit/mL solution See Rx Instructions .ROUTE .COMPLEX 0RF Rx Instructions: use up to 70units daily via insulin pump (DME) blood-glucose meter Misc See Rx Instructions .Route Qty: 1 3RF Rx Instructions: use to test blood sugar 5 times daily (DME) Blood Glucose Test Strip See Rx Instructions .ROUTE .MEDSUPPLY Qty: 500 3RF Rx Instructions: use to test blood sugar 5 times daily (DME) lancets Misc See Rx Instructions .Route Qty: 500 3RF Rx Instructions: use to test blood sugar 5 times daily (DME) Ketone Urine Test Strip See Rx Instructions .Route Qty: 100 0RF Rx Instructions: use to test urine for ketones daily glucagon 3 mg/actuation spray,non-aerosol 3 mg intranasal ONCE PRN (Reason: hypoglycemia) Qty: 2 1RF Rx Instructions: as a single dose furosemide 20 mg Tablet 20 mg PO QAM PRN (Reason: Edema/hypertension) 0RF Rx Instructions: Take on days when you are not vomiting carvedilol 6.25 mg tablet 6.25 mg PO BID 0RF Rx Instructions: must administer with a meal/food
[2021-10-29] MEDS: INSULIN REGULAR, HUMAN 50 UNIT in 0.9 % SODIUM CHLORIDE 99.5 ML IV SCH (23:03)
[2021-10-29] MEDS ORDERED: 0.9 % SODIUM CHLORIDE 1,000 ML IV SCH (23:15)
[2021-10-29 23:21] LABS: Blood Urea Nitrogen 53 mg/dL (6-20); Carbon Dioxide 35 mmol/L (22-30); Chloride 66 mmol/L (96-108); Glomerular Filtration Rate 19; Glucose 354 mg/dL (70-105)
[2021-10-29 23:34] LABS: Beta Hydroxybutyrate 5.13 mmol/L (<0.27)
[2021-10-30] MEDS ORDERED: INSULIN REGULAR, HUMAN 1 UNIT/0.01 ML UNIT ONE (00:10)
[2021-10-30] MEDS: 0.9 % SODIUM CHLORIDE 250 ML IV SCH ×2 (00:15→15:14)
[2021-10-30] MEDS: DEXTROSE 5%-NS 1,000 ML IV SCH ×2 (00:29→02:07)
[2021-10-30 00:57] LABS: ABG Methemoglobin 0.2 % (0.4-1.5); Total Hemoglobin 12.6 gm/Dl (13.5-16.5); VBG Base Excess 14 (-2-3); VBG Oxygen Saturation 88.5 % (40.0-70.0); VBG PCO2 40.1 mmHg (41.0-51.0); VBG PH 7.58 U (7.32-7.42); VBG PO2 116.1 mmHg (25.0-40.0); VBG Total CO2 38.2 mmol/L (25.0-29.0)
[2021-10-30] MEDS ORDERED: POTASSIUM CHLORIDE 20 MEQ TABLET PO ONE ×2 (02:15→02:33)
[2021-10-30] MEDS ORDERED: ONDANSETRON 4 MG/2 ML VIAL IV PRN (02:16)
[2021-10-30 02:26] LABS: ABG Methemoglobin 0.4 % (0.4-1.5); Total Hemoglobin 12.8 gm/Dl (13.5-16.5); VBG Base Excess 13 (-2-3); VBG HCO3 38.4 mmol/L (24.0-28.0); VBG PCO2 52.2 mmHg (41.0-51.0); VBG PH 7.49 U (7.32-7.42); VBG PO2 67.8 mmHg (25.0-40.0)
[2021-10-30] MEDS ORDERED: ONDANSETRON 4 MG/2 ML VIAL ONE (02:33)
--- NOTE | 2021-10-30 05:47 | XRay Report ---
INDICATION: wbc. Diabetic ketoacidosis TECHNIQUE: AP portable semiupright chest x-ray COMPARISON: None FINDINGS:Right-sided chemotherapy infusion port. Tip of the catheter is in the superior vena cava Lungs:Lungs are negative. No focal pulmonary parenchymal infiltrate or mass Heart, vascular:No significant cardiomegaly. Pulmonary vascularity is normal. No pulmonary edema or pulmonary congestion Mediastinum, barbara:No mediastinal widening. No hilar mass Pleura:No pleural fluid. No pleural-based mass or calcification Skeletal:Probable healed right-sided rib fractures, unchanged IMPRESSION: Negative AP chest x-ray Interpreted and Authenticated by: Demetrius Greenfield 10/30/21
[2021-10-30 06:11] LABS: ABG Methemoglobin 0.4 % (0.4-1.5); Total Hemoglobin 10.9 gm/Dl (13.5-16.5); VBG Base Excess 11 (-2-3); VBG HCO3 34.5 mmol/L (24.0-28.0); VBG Oxygen Saturation 93.7 % (40.0-70.0); VBG PH 7.55 U (7.32-7.42); VBG PO2 138.6 mmHg (25.0-40.0); VBG Total CO2 35.7 mmol/L (25.0-29.0)
[2021-10-30] MEDS ORDERED: SCOPOLAMINE 1 PATCH PATCH TOPICAL SCH (07:30)
[2021-10-30] MEDS ORDERED: LORazepam 2 MG/ML VIAL IV PRN (07:30)
--- NOTE | 2021-10-30 07:31 | Internal Med History&Physical ---
HPI History of Present Illness Patient information: Note initiated : 10/30/21 at 7:23 am Service Date, if different from initiated Date: [] Patient: Mauri Levine a 35 y/o M admitted on 10/29/21 for DKA s/sx. Chief Complaint: [] History of present illness: Mr. Levine is a 35 year old M presents to the ED with nausea and vomiting. Multiple admissions for same problem. Patient is diabetes type 1 on insulin per. Because of nauseous is not eating w ell denies abdominal pain. Patient said his blood glucose have been running between 150 and 200 in the ED was 367. Patient states his insulin pump ran out. Review of Systems: Positives as above. Denies headache/fever/chills/chest or abdominal pain/cough/dyspnea/diarrhea. Remaining 10 point review of system reviewed negative PFSH PFSH All Active Problems (Updated 10/29/21 @ 23:03 by Gabrielle Clarke MD) DKA (diabetic ketoacidosis) (Acute) Hyponatremia (Acute) Stage 2 acute kidney injury (Acute) Diabetic gastroparesis (Acute) Metabolic alkalosis (Acute) Testosterone deficiency (Chronic) Nausea and vomiting (Chronic) GERD (gastroesophageal reflux disease) (Chronic) Other hammer toe(s) (acquired), left foot (Chronic) Hypertension, essential (Chronic) Hyperlipidemia (Chronic) History of neuroleptic malignant syndrome (Chronic) Dehydration (Acute) Drug-induced nausea and vomiting (Acute) Uncontrolled type 1 diabetes mellitus with diabetic nephropathy, with long-term current use of insulin (Chronic) Cyclic vomiting syndrome (Chronic) Type 1 diabetes mellitus with stage 3 chronic kidney disease and hypertension (Chronic) Marijuana use, continuous (Chronic) CKD (chronic kidney disease) (Acute) Nephrotic range proteinuria (Chronic) Controlled type 1 diabetes mellitus with chronic kidney disease (Chronic) Port-A-Cath in place (Acute) Diabetic gastroparesis associated with type 1 diabetes mellitus (Chronic) Diabetic neuropathy associated with type 1 diabetes mellitus (Chronic) Diabetic retinopathy associated with type 1 diabetes mellitus (Chronic) Anxiety (Chronic) Back pain (Chronic) Physical deconditioning (Chronic) Malnutrition (Chronic) Acute dehydration (Acute) Acute hypokalemia (Acute) QT prolongation (Acute) Dehydration (Acute) No-show for appointment (Acute) Intractable cyclical vomiting with nausea (Acute) Diabetic gastroparesis (Acute) ROSALIO (acute kidney injury) (Acute) Hyperglycemia (Acute) Dehydration (Acute) Major depressive disorder, recurrent (Chronic) Generalized anxiety disorder (Chronic) Trauma and stressor-related disorder (Chronic) Diabetic gastroparesis (Acute) Nausea & vomiting (Acute) Acute dehydration (Acute) Ketosis (Acute) Uncontrolled diabetes mellitus (Acute) DKA (diabetic ketoacidosis) (Acute) Hyperosmolar hyperglycemic state (HHS) (Acute) Medical History Abdominal pain, epigastric Anxiety Back pain Chronic ulcer of left foot Coffee ground emesis Diabetes mellitus type I Age 12, With foot ulcer Diabetic gastroparesis associated with type 1 diabetes mellitus Diabetic neuropathy associated with type 1 diabetes mellitus Diabetic peripheral neuropathy Diabetic retinopathy associated with type 1 diabetes mellitus DKA, type 1 Esophageal candidiasis Gastroenteritis Gastroparesis due to DM GERD (gastroesophageal reflux disease) Hallux valgus (acquired), left foot History of neuroleptic malignant syndrome To compazine (prochlorperazine). Tolerates promethazine without issue Hyperlipidemia Hypertension, essential labile due to unpredictable Rx absorption with gastroparesis and propensity for dehydration Holds lisinopril if persistent vomiting occurs Hypokalemia Connie-[place]rne tear Malnutrition Marijuana use, continuous Nausea and vomiting Non-pressure chronic ulcer of other part of left foot limited to breakdown of skin Other hammer toe(s) (acquired), left foot Peripheral autonomic neuropathy due to DM Physical deconditioning Sepsis Tardive dyskinesia due to metoclopramide (Reglan) Testosterone deficiency Surgical History History of toe surgery left hallux Family History Mother Atrial fibrillation Essential hypertension Sister Malignant neoplasm of female breast Maternal Grandfather Malignant neoplasm of colon Recorded 11/12/10 Father Essential hypertension Other Adopted DKA, type 1 Social History adopted: Yes household members: family housing: other 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: 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 marital status: single occupational status: disabled occupation: On disability since 2016 physical activity: walking smoking status: Former smoker quit date: 02/12/11 alcohol intake frequency: former alcohol drinker substance use type: former substance user seatbelt use: always MEDS/ALLERGIES Home Medications and Allergies Home Medications Medication Instructions Recorded Confirmed Type lisinopril 10 mg tablet 10 mg PO QDAY #90 tab 07/01/21 10/30/21 Rx carvedilol 6.25 mg tablet 6.25 mg PO BID 08/21/21 10/30/21 History Dexcom sensor & monitor #1 ea 08/27/21 10/30/21 Rx acetone (urine) test (Ketone Urine #100 ea 09/10/21 10/30/21 Rx Test) blood sugar diagnostic (Blood #500 ea 09/10/21 10/30/21 Rx Glucose Test) blood-glucose meter #1 ea 09/10/21 10/30/21 Rx lancets #500 ea 09/10/21 10/30/21 Rx fluoxetine 20 mg capsule 20 mg PO DAILY #30 cap 09/17/21 10/30/21 Rx clonidine 0.2 mg/24 hr weekly 1 patch TRANSDERMAL QWEEK #4 ea 10/20/21 10/30/21 Rx transdermal patch glucagon 3 mg/actuation nasal 1 spray INTRANASAL ONCE PRN 10/30/21 10/30/21 History spray (Baqsimi) insulin aspart U-100 100 unit/mL 0 - 70 unit SUBCUT QDAY 10/30/21 10/30/21 History subcutaneous solution (Novolog U-100 Insulin aspart) lorazepam 1 mg tablet 1 - 2 tab PO QDAY 10/30/21 10/30/21 History Allergies Allergy/AdvReac Type Severity Reaction Status Date / Time NSAIDS (Non-Steroidal Allergy Unknown Unknown Verified 10/29/21 20:56 Anti-Inflamma metoclopramide [From Reglan] AdvReac Mild Agitated Verified 10/29/21 20:56 prochlorperazine AdvReac Mild "My whole Verified 10/29/21 20:56 [From Compazine] body freaks out." silver AdvReac Mild dystonic Verified 10/29/21 20:56 IV iodine contrast Allergy Unknown Unknown Uncoded 09/17/21 11:04 EXAM Constitutional Vitals: Temp Pulse Resp BP Pulse Ox 98.2 F 86 19 143/71 96 10/30/21 05:31 10/30/21 07:00 10/30/21 07:00 10/30/21 07:00 10/30/21 07:00 Exam: General: Awake, No acute Distress Eyes/N/T: EOMI, PERRL, dry MM Head/Neck: neck supple, normocephalic atraumatic CV: Mildly tacky but regular, 2/6 SM, normal s1/s2 Pulm: Clear b/l, no wheezing/rhonchi/rales Abd: soft, nontender, +BS x4 Ext: no clubbing/cyanosis, mild b/l LE edema Neuro: drowsy, no focal deficits, moves all extremities, CN 2-12 grossly intact, symmetrical strength b/l upper/lower, sensations intact b/l upper/lower Skin: warm/dry DATA Data Completed and Pending Labs: Labs from last 24 hours 10/30/21 10/30/21 10/30/21 06:43 05:54 05:54 WBC RBC Hgb Hct POC Hct MCV MCH MCHC RDW Plt Count MPV Neut % (Auto) Lymph % (Auto) [place] % (Auto) Eos % (Auto) Baso % (Auto) Lymph # (Auto) [place] # (Auto) Eos # (Auto) Baso # (Auto) Absolute Neutrophils ABG Methemoglobin 0.4 VBG pH 7.55 H VBG pCO2 40.0 L VBG pO2 138.6 H VBG HCO3 34.5 H VBG Total CO2 35.7 H VBG O2 Saturation 93.7 H VBG Base Excess 11 H VBG Lactic Acid Carboxyhemoglobin 4.2 H Total Hemoglobin 10.9 L POC Sodium Sodium Pending TNP POC Potassium Potassium Pending TNP POC Chloride Chloride Pending TNP Carbon Dioxide Pending TNP POC Total CO2 Anion Gap Pending TNP POC BUN BUN Pending TNP Creatinine Pending TNP POC Creatinine GFR Calculation Pending TNP Glucose Pending TNP POC Glucose Uric Acid Pending TNP Calcium Pending TNP POC WB Ioniz Calcium Phosphorus Pending TNP Magnesium Pending TNP Total Bilirubin Pending TNP Direct Bilirubin Pending Pending GGT Pending TNP AST Pending TNP ALT Pending TNP Alkaline Phosphatase Pending TNP Lactate Dehydrogenase Pending TNP Total Protein Pending TNP Albumin Pending TNP Globulin Pending TNP Albumin/Globulin Ratio Pending TNP Triglycerides Pending TNP Lipase Beta-Hydroxybutyrate Urine Color Urine Appearance Urine pH Ur Specific [place] Urine Protein Urine Glucose (UA) Urine Ketones Urine Occult Blood Urine Nitrate Urine Bilirubin Urine Urobilinogen Ur Leukocyte Esterase 10/30/21 10/30/21 10/30/21 02:10 00:28 00:28 WBC RBC Hgb Hct POC Hct MCV MCH MCHC RDW Plt Count MPV Neut % (Auto) Lymph % (Auto) [place] % (Auto) Eos % (Auto) Baso % (Auto) Lymph # (Auto) [place] # (Auto) Eos # (Auto) Baso # (Auto) Absolute Neutrophils ABG Methemoglobin 0.4 0.2 L VBG pH 7.49 H 7.58 H VBG pCO2 52.2 H 40.1 L VBG pO2 67.8 H 116.1 H VBG HCO3 38.4 H 37.0 H VBG Total CO2 40.0 H 38.2 H VBG O2 Saturation 89.0 H 88.5 H VBG Base Excess 13 H 14 H VBG Lactic Acid 2.2 H Carboxyhemoglobin 4.3 H 9.6 H Total Hemoglobin 12.8 L 12.6 L POC Sodium Sodium POC Potassium Potassium POC Chloride Chloride Carbon Dioxide POC Total CO2 Anion Gap POC BUN BUN Creatinine POC Creatinine GFR Calculation Glucose POC Glucose Uric Acid Calcium POC WB Ioniz Calcium Phosphorus Magnesium Total Bilirubin Direct Bilirubin GGT AST ALT Alkaline Phosphatase Lactate Dehydrogenase Total Protein Albumin Globulin Albumin/Globulin Ratio Triglycerides Lipase Beta-Hydroxybutyrate Urine Color Urine Appearance Urine pH Ur Specific [place] Urine Protein Urine Glucose (UA) Urine Ketones Urine Occult Blood Urine Nitrate Urine Bilirubin Urine Urobilinogen Ur Leukocyte Esterase 10/30/21 10/29/21 10/29/21 00:20 21:25 21:25 WBC RBC Hgb Hct POC Hct MCV MCH MCHC RDW Plt Count MPV Neut % (Auto) Lymph % (Auto) [place] % (Auto) Eos % (Auto) Baso % (Auto) Lymph # (Auto) [place] # (Auto) Eos # (Auto) Baso # (Auto) Absolute Neutrophils ABG Methemoglobin VBG pH VBG pCO2 VBG pO2 VBG HCO3 VBG Total CO2 VBG O2 Saturation VBG Base Excess VBG Lactic Acid Carboxyhemoglobin Total Hemoglobin POC Sodium Sodium 130 L 131 L POC Potassium Potassium 3.1 L 3.2 L POC Chloride Chloride 79 L 66 L Carbon Dioxide 34 H 35 H POC Total CO2 Anion Gap 17.0 H 30.0 H POC BUN BUN 53 H Creatinine 3.8 H POC Creatinine GFR Calculation 19 Glucose 354 H POC Glucose Uric Acid Calcium 9.0 POC WB Ioniz Calcium Phosphorus Magnesium 1.9 Total Bilirubin Direct Bilirubin GGT AST ALT Alkaline Phosphatase Lactate Dehydrogenase Total Protein Albumin Globulin Albumin/Globulin Ratio Triglycerides Lipase Beta-Hydroxybutyrate Urine Color Urine Appearance Urine pH Ur Specific [place] Urine Protein Urine Glucose (UA) Urine Ketones Urine Occult Blood Urine Nitrate Urine Bilirubin Urine Urobilinogen Ur Leukocyte Esterase 10/29/21 10/29/21 10/29/21 21:24 21:23 21:23 WBC 20.9 H RBC 4.70 Hgb 14.0 Hct 40.2 POC Hct 45.0 MCV 85.5 MCH 29.8 MCHC 34.8 RDW 13.2 Plt Count 369 MPV 11.3 H Neut % (Auto) 84.4 H Lymph % (Auto) 6.9 L [place] % (Auto) 8.6 Eos % (Auto) 0 Baso % (Auto) 0.1 Lymph # (Auto) 1.45 L [place] # (Auto) 1.79 H Eos # (Auto) 0 Baso # (Auto) 0.02 Absolute Neutrophils 17.62 H ABG Methemoglobin VBG pH VBG pCO2 VBG pO2 VBG HCO3 VBG Total CO2 VBG O2 Saturation VBG Base Excess VBG Lactic Acid Carboxyhemoglobin Total Hemoglobin POC Sodium 124 L Sodium POC Potassium 2.9 L* Potassium POC Chloride 66 L Chloride Carbon Dioxide POC Total CO2 42.0 H Anion Gap POC BUN 50 H BUN Creatinine POC Creatinine 3.5 H GFR Calculation Glucose POC Glucose 367 H Uric Acid Calcium POC WB Ioniz Calcium 0.66 L* Phosphorus Magnesium Total Bilirubin 0.5 Direct Bilirubin < 0.2 GGT AST 21 ALT 11 Alkaline Phosphatase 117 Lactate Dehydrogenase Total Protein 7.9 Albumin 4.4 Globulin 3.5 Albumin/Globulin Ratio Triglycerides Lipase 13 Beta-Hydroxybutyrate 5.13 H Urine Color Urine Appearance Urine pH Ur Specific [place] Urine Protein Urine Glucose (UA) Urine Ketones Urine Occult Blood Urine Nitrate Urine Bilirubin Urine Urobilinogen Ur Leukocyte Esterase 10/29/21 07:12 WBC RBC Hgb Hct POC Hct MCV MCH MCHC RDW Plt Count MPV Neut % (Auto) Lymph % (Auto) [place] % (Auto) Eos % (Auto) Baso % (Auto) Lymph # (Auto) [place] # (Auto) Eos # (Auto) Baso # (Auto) Absolute Neutrophils ABG Methemoglobin VBG pH VBG pCO2 VBG pO2 VBG HCO3 VBG Total CO2 VBG O2 Saturation VBG Base Excess VBG Lactic Acid Carboxyhemoglobin Total Hemoglobin POC Sodium Sodium POC Potassium Potassium POC Chloride Chloride Carbon Dioxide POC Total CO2 Anion Gap POC BUN BUN Creatinine POC Creatinine GFR Calculation Glucose POC Glucose Uric Acid Calcium POC WB Ioniz Calcium Phosphorus Magnesium Total Bilirubin Direct Bilirubin GGT AST ALT Alkaline Phosphatase Lactate Dehydrogenase Total Protein Albumin Globulin Albumin/Globulin Ratio Triglycerides Lipase Beta-Hydroxybutyrate Urine Color Pending Urine Appearance Pending Urine pH Pending Ur Specific [place] Pending Urine Protein Pending Urine Glucose (UA) Pending Urine Ketones Pending Urine Occult Blood Pending Urine Nitrate Pending Urine Bilirubin Pending Urine Urobilinogen Pending Ur Leukocyte Esterase Pending Preliminary micro results at discharge 10/29/21 00:20 Blood Culture - Preliminary Blood A/P Narrative A/P Narrative: A: *DKA: *DMI with Gastroparesis/Neuropathy: -A1c 11.3 (August) *Hyponatremia: *ROSALIO on CKD IV: Follows with Dr. Mills *Anemia, chronic: *HTN: On coreg/clonidine/lisinopril *Anxiety/depression: on Fluoxetine and Fluvoxamine *Long QT Syndrome: noted on EKG's since 2019. Pt is on SSRI *GERD: P: -Insulin gtt, f/u chem and gap -IV fluids -Monitor electrolytes and replace -clear liquids if patient is tolerant and advance diet as able to gastroparesis diet (low fat, soluble fiber) -Antiemetics that won't prolong QT (Scopolamine,Benzodiazepines, Dexamethasone) -cont clonidine/BB, restart ACEI once renal fxn at baseline, IV prn BP meds -ppx: Lovenox/H2 Time Spent With Patient Time: Total time spent is greater than 50% in coordination of care (as documented) at patient's floor/unit and/or counseling patient: Total time spent with greater than 50% in coordination of care (as documented) at patient's floor/unit and/or counseling patient:: 50 - 70 minutes
[2021-10-30] MEDS ORDERED: ACETAMINOPHEN 325 MG TABLET PO PRN (07:34)
[2021-10-30] MEDS ORDERED: POTASSIUM CHLORIDE 40 MEQ in DEXTROSE 5% IN WATER 500 ML IV PRN (07:34)
[2021-10-30] MEDS ORDERED: SENNOSIDES 1 TABLET PO PRN (07:34)
[2021-10-30] MEDS ORDERED: POTASSIUM CHLORIDE 20 MEQ TABLET PO PRN ×2 (07:34)
[2021-10-30] MEDS ORDERED: POLYETHYLENE GLYCOL 3350 17 GM PACKET PO PRN (07:34)
[2021-10-30] MEDS ORDERED: IPRATROPIUM/ALBUTEROL 3 ML AMPUL.NEB NEB PRN (07:34)
[2021-10-30] MEDS ORDERED: MAGNESIUM SULFATE 2 GM/50 ML BAG IV PRN (07:34)
[2021-10-30] MEDS ORDERED: METOCLOPRAMIDE 10 MG/2 ML VIAL IV PRN (07:34)
[2021-10-30] MEDS: INSULIN REGULAR, HUMAN 50 UNIT in 0.9 % SODIUM CHLORIDE 99.5 ML IV SCH (08:19)
[2021-10-30 08:27] LABS: Basophils # (Auto) 0.02 K/mcL (0.00-0.30); Basophils % (Auto) 0.1 % (0.0-2.0); Eosinophils # (Auto) 0 K/mcL (0.00-0.70); Eosinophils % (Auto) 0 % (0.0-7.0); Hematocrit 30.6 % (40.1-51.0); Hemoglobin 10.3 g/dL (13.7-17.5); Lymphocytes # (Auto) 1.97 K/mcL (1.50-4.80); Lymphocytes % (Auto) 11.3 % (15.5-49.0); Mean Cell Volume 88.2 fL (80.0-100.0); Mean Corpuscular HGB Conc 33.7 g/dL (31.0-36.0); Mean Platelet Volume 11.2 fL (7.4-10.4); Monocytes # (Auto) 1.88 K/mcL (0.10-0.90); Monocytes % (Auto) 10.8 % (1.0-12.0); Neutrophils % (Auto) 77.8 % (38.0-78.0); Platelet Count 274 K/mcL (140-440); RBC 3.47 M/mcL (4.63-6.08); Red Cell Distribution Width 13.5 % (11.5-14.5); WBC 17.4 K/mcL (4.5-11.0)
[2021-10-30] MEDS ORDERED: DEXTROSE 50% 50 ML SYRINGE IV ONE (08:33)
[2021-10-30 08:36] LABS: Appearance,Urine CLEAR (Clear); Bilirubin,Urine Negative (Negative); Color,Urine YELLOW; Culture Indicated,Urine No; Glucose,Urine (UA) >=500 mg/dL (Negative); Ketones,Urine 5 mg/dL (Negative); Leukocyte Esterase,Urine Negative /uL (Negative); Mucus,Urine FEW /hpf; Nitrate,Urine Negative (Negative); Protein,Urine 30 mg/dL (Negative); Specific Gravity,Urine 1.008 (1.000-1.035); Urine Blood Negative (Negative); Urine Hyaline Cast 4 /lph (0-2); Urine RBC 1 /hpf (0-3); Urine Squamous Epithelial Cell 0 /hpf (0-4); Urine WBC 3 /hpf (0-4); Urobilinogen,Urine Negative
[2021-10-30] MEDS ORDERED: DEXTROSE 5%-NS 1,000 ML IV SCH (08:41)
[2021-10-30 08:56] LABS: Amphetamine Screen,Urine None detected; Barbiturate Screen,Urine None detected; Benzodiazepines Screen,Urine None detected; Cannabinoid Screen,Urine Suspect Positive; Cocaine Screen,Urine None detected; Opiate Screen,Urine None detected; Oxycodone, Urine Screen None detected; Phencyclidine Screen,Urine None detected
[2021-10-30] MEDS ORDERED: FLUoxetine HCL 20 MG CAPSULE PO SCH (09:00)
[2021-10-30] MEDS ORDERED: ENOXAPARIN 40 MG/0.4 ML SYRINGE SQ SCH (09:00)
[2021-10-30] MEDS ORDERED: CARVEDILOL 6.25 MG TABLET PO SCH (09:00)
[2021-10-30 09:13] LABS: ALT/SGPT 9 U/L (<40); AST/SGOT 15 U/L (<40); Albumin 3.5 gm/dL (3.2-5.2); Albumin/Globulin Ratio 1.4 (1.0-2.3); Alkaline Phosphatase 91 U/L (39-117); Bilirubin,Direct < 0.2 mg/dL (0-0.3); Bilirubin,Total 0.3 mg/dL (0.1-1.0); Blood Urea Nitrogen 45 mg/dL (6-20); Calcium 8.2 mg/dL (8.6-10.4); Carbon Dioxide 38 mmol/L (22-30); Chloride 86 mmol/L (96-108); Globulin 2.5 gm/dL (2.2-3.7); Glomerular Filtration Rate 26; Glucose 113 mg/dL (70-105); Lactate Dehydrogenase 185 U/L (135-225); Phosphorous 3.3 mg/dL (2.5-4.5); Triglycerides 72 mg/dL (<150); Uric Acid 8.3 mg/dL (2.5-8.0)
[2021-10-30] MEDS ORDERED: cloNIDine TTS 2 1 PATCH PATCH TD SCH (11:00)
[2021-10-30] MEDS ORDERED: 0.9 % SODIUM CHLORIDE 1,000 ML IV SCH ×2 (11:45→13:08)
[2021-10-30] MEDS ORDERED: 0.9 % SODIUM CHLORIDE 10 ML SYRINGE IV SCH (14:00)
--- NOTE | 2021-10-30 14:08 | EKG ---
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 Measurements Intervals [place] Rate: 100 P: 60 RI: 141 QRS: 68 QRSD: 123 T: 91 QT: 452 QTc: 584 Interpretive Statements Sinus tachycardia Nonspecific T abnormalities, lateral leads Electronically Signed On 10-30-2021 14:08:00 PDT by Demetrius Interinao M.D. /store/[id number]
[2021-10-30] MEDS ORDERED: HEPARIN SODIUM,PORCINE/PF 500 UNIT/5 ML SYRINGE IV ONE (16:39)
--- NOTE | 2021-10-30 16:54 | Discharge Summary ---
Discharge Provider Provider Patient information: Note initiated : 10/30/21 at 4:52 pm Service Date, if different from initiated Date: [] Patient: Mauri Levine 35 y/o M admitted on 10/29/21 for DKA s/sx. Chief Complaint: [] Date of admission: 10/29/21 23:32 Discharge date: 10/30/21 Primary care physician: Flo Peña MD Attending physician on admission: Deangelo Basilio Consults: 10/29/21 Consult to Physician [CONS] Stat Comment: Consulting Provider: Deangelo Basilio Reason For Exam: Physician to Consult Attending physician on discharge: Chi Luciana Pui Discharge Meds Discharge Medications Home Medications lisinopril 10 mg tablet 10 mg PO QDAY #90 tab 07/01/21 [Rx Confirmed 10/30/21 Last Taken Unknown] carvedilol 6.25 mg tablet 6.25 mg PO BID 08/21/21 [History Confirmed 10/30/21 Last Taken Unknown] Dexcom sensor & monitor #1 ea 08/27/21 [Rx Confirmed 10/30/21 Last Taken Unknown] acetone (urine) test (Ketone Urine Test) #100 ea 09/10/21 [Rx Confirmed 10/30/21 Last Taken Unknown] blood sugar diagnostic (Blood Glucose Test) #500 ea 09/10/21 [Rx Confirmed 10/30/21 Last Taken Unknown] blood-glucose meter #1 ea 09/10/21 [Rx Confirmed 10/30/21 Last Taken Unknown] lancets #500 ea 09/10/21 [Rx Confirmed 10/30/21 Last Taken Unknown] fluoxetine 20 mg capsule 20 mg PO DAILY #30 cap 09/17/21 [Rx Confirmed 10/30/21 Last Taken Unknown] clonidine 0.2 mg/24 hr weekly transdermal patch 1 patch TRANSDERMAL QWEEK #4 ea 10/20/21 [Rx Confirmed 10/30/21 Last Taken Unknown] glucagon 3 mg/actuation nasal spray (Baqsimi) 1 spray INTRANASAL ONCE PRN 10/30/21 [History Confirmed 10/30/21 Last Taken Unknown] insulin aspart U-100 100 unit/mL subcutaneous solution (Novolog U-100 Insulin aspart) 0 - 70 unit SUBCUT QDAY 10/30/21 [History Confirmed 10/30/21 Last Taken Unknown] lorazepam 1 mg tablet 1 - 2 tab PO QDAY 10/30/21 [History Confirmed 10/30/21 Last Taken Unknown] COURSE Hospital Course Hospital course: Patient was admitted on October 30, 2021 for DKA. Insulin drip was initiated and subsequently discontinued. Patient soon left AMA in the afternoon of the same hospital day. Discharge diagnosis: DKA Time Spent with Patient Time attestation: Total time spent providing and/or coordinating discharge services: Time spent: Less than 30 minutes EXAM Constitutional Vitals: Temp Pulse Resp BP Pulse Ox 37.4 C H 71 20 151/73 96 10/30/21 12:02 10/30/21 16:01 10/30/21 16:01 10/30/21 16:01 10/30/21 16:01 General appearance: cooperative, disheveled, no acute distress and thin Head Head exam: Present atraumatic and normocephalic Eye Eye exam: Present EOMI and PERRL ENT ENT exam: Present mucous membranes moist, normal exam and normal external ear exam Neck Neck exam: Present normal inspection; Absent lymphadenopathy, tenderness or thyromegaly Respiratory Respiratory exam: Absent accessory muscle use, respiratory distress or wheezes Cardiovascular Cardiovascular exam: Present normal rate and rhythm; Absent JVD GI/Abdominal GI/Abdominal exam: Present normal bowel sounds and soft; Absent organomegaly or tenderness Rectal Rectal exam: Present deferred Extremities Exam Extremities exam: Present full ROM, normal capillary refill and normal inspection; Absent tenderness Neurological Exam Neurological exam: Present alert, CN II-XII intact and oriented X3; Absent motor sensory deficit Psychiatric Psychiatric exam: Present normal affect and normal mood; Absent anxious or depressed Skin Skin exam: Present dry and intact Discharge Data Data Completed and Pending Labs on day of discharge: Labs from last 24 hours 10/30/21 10/30/21 10/30/21 07:15 06:43 06:43 WBC 17.4 H RBC 3.47 L Hgb 10.3 L Hct 30.6 L POC Hct MCV 88.2 MCH 29.7 MCHC 33.7 RDW 13.5 Plt Count 274 MPV 11.2 H Neut % (Auto) 77.8 Lymph % (Auto) 11.3 L [place] % (Auto) 10.8 Eos % (Auto) 0 Baso % (Auto) 0.1 Lymph # (Auto) 1.97 [place] # (Auto) 1.88 H Eos # (Auto) 0 Baso # (Auto) 0.02 Absolute Neutrophils 13.50 H ABG Methemoglobin VBG pH VBG pCO2 VBG pO2 VBG HCO3 VBG Total CO2 VBG O2 Saturation VBG Base Excess VBG Lactic Acid Carboxyhemoglobin Total Hemoglobin POC Sodium Sodium 135 POC Potassium Potassium 3.5 POC Chloride Chloride 86 L Carbon Dioxide 38 H POC Total CO2 Anion Gap 11.0 POC BUN BUN 45 H Creatinine 3.0 H POC Creatinine GFR Calculation 26 Glucose 113 H POC Glucose Uric Acid 8.3 H Calcium 8.2 L POC WB Ioniz Calcium Phosphorus 3.3 Magnesium 1.9 Total Bilirubin 0.3 Direct Bilirubin < 0.2 GGT 9 AST 15 ALT 9 Alkaline Phosphatase 91 Lactate Dehydrogenase 185 Total Protein 6.0 Albumin 3.5 Globulin 2.5 Albumin/Globulin Ratio 1.4 Triglycerides 72 Lipase Beta-Hydroxybutyrate Urine Color Urine Appearance Urine pH Ur Specific [place] Urine Protein Urine Glucose (UA) Urine Ketones Urine Occult Blood Urine Nitrate Urine Bilirubin Urine Urobilinogen Ur Leukocyte Esterase Urine RBC Urine WBC Ur Squamous Epith Cells Urine Bacteria Hyaline Casts Urine Mucus Ur Culture Indicated? Urine Opiates Screen None detected Ur Opiates Confirm TNP Ur Oxycodone Screen None detected Urine Methadone Screen None detected Ur Methadone Confirm TNP Ur Barbiturates Screen None detected Ur Barbiturate Confirm TNP Ur Phencyclidine Scrn None detected Urine PCP Confirm TNP Ur Amphetamines Screen None detected U Amphetamines Confirm TNP U Benzodiazepines Scrn None detected Ur Benzodiazepine, Qnt TNP Urine Cocaine Screen None detected Urine Cocaine Confirm TNP U Cannabinoids Confirm Pending U Marijuana (THC) Screen Suspect positive A 10/30/21 10/30/21 10/30/21 05:54 05:54 02:10 WBC RBC Hgb Hct POC Hct MCV MCH MCHC RDW Plt Count MPV Neut % (Auto) Lymph % (Auto) [place] % (Auto) Eos % (Auto) Baso % (Auto) Lymph # (Auto) [place] # (Auto) Eos # (Auto) Baso # (Auto) Absolute Neutrophils ABG Methemoglobin 0.4 0.4 VBG pH 7.55 H 7.49 H VBG pCO2 40.0 L 52.2 H VBG pO2 138.6 H 67.8 H VBG HCO3 34.5 H 38.4 H VBG Total CO2 35.7 H 40.0 H VBG O2 Saturation 93.7 H 89.0 H VBG Base Excess 11 H 13 H VBG Lactic Acid Carboxyhemoglobin 4.2 H 4.3 H Total Hemoglobin 10.9 L 12.8 L POC Sodium Sodium TNP POC Potassium Potassium TNP POC Chloride Chloride TNP Carbon Dioxide TNP POC Total CO2 Anion Gap TNP POC BUN BUN TNP Creatinine TNP POC Creatinine GFR Calculation TNP Glucose TNP POC Glucose Uric Acid TNP Calcium TNP POC WB Ioniz Calcium Phosphorus TNP Magnesium TNP Total Bilirubin TNP Direct Bilirubin Pending GGT TNP AST TNP ALT TNP Alkaline Phosphatase TNP Lactate Dehydrogenase TNP Total Protein TNP Albumin TNP Globulin TNP Albumin/Globulin Ratio TNP Triglycerides TNP Lipase Beta-Hydroxybutyrate Urine Color Urine Appearance Urine pH Ur Specific [place] Urine Protein Urine Glucose (UA) Urine Ketones Urine Occult Blood Urine Nitrate Urine Bilirubin Urine Urobilinogen Ur Leukocyte Esterase Urine RBC Urine WBC Ur Squamous Epith Cells Urine Bacteria Hyaline Casts Urine Mucus Ur Culture Indicated? Urine Opiates Screen Ur Opiates Confirm Ur Oxycodone Screen Urine Methadone Screen Ur Methadone Confirm Ur Barbiturates Screen Ur Barbiturate Confirm Ur Phencyclidine Scrn Urine PCP Confirm Ur Amphetamines Screen U Amphetamines Confirm U Benzodiazepines Scrn Ur Benzodiazepine, Qnt Urine Cocaine Screen Urine Cocaine Confirm U Cannabinoids Confirm U Marijuana (THC) Screen 10/30/21 10/30/21 10/30/21 00:28 00:28 00:20 WBC RBC Hgb Hct POC Hct MCV MCH MCHC RDW Plt Count MPV Neut % (Auto) Lymph % (Auto) [place] % (Auto) Eos % (Auto) Baso % (Auto) Lymph # (Auto) [place] # (Auto) Eos # (Auto) Baso # (Auto) Absolute Neutrophils ABG Methemoglobin 0.2 L VBG pH 7.58 H VBG pCO2 40.1 L VBG pO2 116.1 H VBG HCO3 37.0 H VBG Total CO2 38.2 H VBG O2 Saturation 88.5 H VBG Base Excess 14 H VBG Lactic Acid 2.2 H Carboxyhemoglobin 9.6 H Total Hemoglobin 12.6 L POC Sodium Sodium 130 L POC Potassium Potassium 3.1 L POC Chloride Chloride 79 L Carbon Dioxide 34 H POC Total CO2 Anion Gap 17.0 H POC BUN BUN Creatinine POC Creatinine GFR Calculation Glucose POC Glucose Uric Acid Calcium POC WB Ioniz Calcium Phosphorus Magnesium Total Bilirubin Direct Bilirubin GGT AST ALT Alkaline Phosphatase Lactate Dehydrogenase Total Protein Albumin Globulin Albumin/Globulin Ratio Triglycerides Lipase Beta-Hydroxybutyrate Urine Color Urine Appearance Urine pH Ur Specific [place] Urine Protein Urine Glucose (UA) Urine Ketones Urine Occult Blood Urine Nitrate Urine Bilirubin Urine Urobilinogen Ur Leukocyte Esterase Urine RBC Urine WBC Ur Squamous Epith Cells Urine Bacteria Hyaline Casts Urine Mucus Ur Culture Indicated? Urine Opiates Screen Ur Opiates Confirm Ur Oxycodone Screen Urine Methadone Screen Ur Methadone Confirm Ur Barbiturates Screen Ur Barbiturate Confirm Ur Phencyclidine Scrn Urine PCP Confirm Ur Amphetamines Screen U Amphetamines Confirm U Benzodiazepines Scrn Ur Benzodiazepine, Qnt Urine Cocaine Screen Urine Cocaine Confirm U Cannabinoids Confirm U Marijuana (THC) Screen 10/29/21 10/29/21 10/29/21 21:25 21:25 21:24 WBC RBC Hgb Hct POC Hct 45.0 MCV MCH MCHC RDW Plt Count MPV Neut % (Auto) Lymph % (Auto) [place] % (Auto) Eos % (Auto) Baso % (Auto) Lymph # (Auto) [place] # (Auto) Eos # (Auto) Baso # (Auto) Absolute Neutrophils ABG Methemoglobin VBG pH VBG pCO2 VBG pO2 VBG HCO3 VBG Total CO2 VBG O2 Saturation VBG Base Excess VBG Lactic Acid Carboxyhemoglobin Total Hemoglobin POC Sodium 124 L Sodium 131 L POC Potassium 2.9 L* Potassium 3.2 L POC Chloride 66 L Chloride 66 L Carbon Dioxide 35 H POC Total CO2 42.0 H Anion Gap 30.0 H POC BUN 50 H BUN 53 H Creatinine 3.8 H POC Creatinine 3.5 H GFR Calculation 19 Glucose 354 H POC Glucose 367 H Uric Acid Calcium 9.0 POC WB Ioniz Calcium 0.66 L* Phosphorus Magnesium 1.9 Total Bilirubin Direct Bilirubin GGT AST ALT Alkaline Phosphatase Lactate Dehydrogenase Total Protein Albumin Globulin Albumin/Globulin Ratio Triglycerides Lipase Beta-Hydroxybutyrate Urine Color Urine Appearance Urine pH Ur Specific [place] Urine Protein Urine Glucose (UA) Urine Ketones Urine Occult Blood Urine Nitrate Urine Bilirubin Urine Urobilinogen Ur Leukocyte Esterase Urine RBC Urine WBC Ur Squamous Epith Cells Urine Bacteria Hyaline Casts Urine Mucus Ur Culture Indicated? Urine Opiates Screen Ur Opiates Confirm Ur Oxycodone Screen Urine Methadone Screen Ur Methadone Confirm Ur Barbiturates Screen Ur Barbiturate Confirm Ur Phencyclidine Scrn Urine PCP Confirm Ur Amphetamines Screen U Amphetamines Confirm U Benzodiazepines Scrn Ur Benzodiazepine, Qnt Urine Cocaine Screen Urine Cocaine Confirm U Cannabinoids Confirm U Marijuana (THC) Screen 10/29/21 10/29/21 10/29/21 21:23 21:23 07:12 WBC 20.9 H RBC 4.70 Hgb 14.0 Hct 40.2 POC Hct MCV 85.5 MCH 29.8 MCHC 34.8 RDW 13.2 Plt Count 369 MPV 11.3 H Neut % (Auto) 84.4 H Lymph % (Auto) 6.9 L [place] % (Auto) 8.6 Eos % (Auto) 0 Baso % (Auto) 0.1 Lymph # (Auto) 1.45 L [place] # (Auto) 1.79 H Eos # (Auto) 0 Baso # (Auto) 0.02 Absolute Neutrophils 17.62 H ABG Methemoglobin VBG pH VBG pCO2 VBG pO2 VBG HCO3 VBG Total CO2 VBG O2 Saturation VBG Base Excess VBG Lactic Acid Carboxyhemoglobin Total Hemoglobin POC Sodium Sodium POC Potassium Potassium POC Chloride Chloride Carbon Dioxide POC Total CO2 Anion Gap POC BUN BUN Creatinine POC Creatinine GFR Calculation Glucose POC Glucose Uric Acid Calcium POC WB Ioniz Calcium Phosphorus Magnesium Total Bilirubin 0.5 Direct Bilirubin < 0.2 GGT AST 21 ALT 11 Alkaline Phosphatase 117 Lactate Dehydrogenase Total Protein 7.9 Albumin 4.4 Globulin 3.5 Albumin/Globulin Ratio Triglycerides Lipase 13 Beta-Hydroxybutyrate 5.13 H Urine Color Yellow Urine Appearance Clear Urine pH 9.0 Ur Specific [place] 1.008 Urine Protein 30 A Urine Glucose (UA) >=500 A Urine Ketones 5 A Urine Occult Blood Negative Urine Nitrate Negative Urine Bilirubin Negative Urine Urobilinogen Negative Ur Leukocyte Esterase Negative Urine RBC 1 Urine WBC 3 Ur Squamous Epith Cells 0 Urine Bacteria None Hyaline Casts 4 H Urine Mucus Few A Ur Culture Indicated? No Urine Opiates Screen Ur Opiates Confirm Ur Oxycodone Screen Urine Methadone Screen Ur Methadone Confirm Ur Barbiturates Screen Ur Barbiturate Confirm Ur Phencyclidine Scrn Urine PCP Confirm Ur Amphetamines Screen U Amphetamines Confirm U Benzodiazepines Scrn Ur Benzodiazepine, Qnt Urine Cocaine Screen Urine Cocaine Confirm U Cannabinoids Confirm U Marijuana (THC) Screen Preliminary micro results at discharge 10/29/21 00:20 Blood Culture - Preliminary Blood Discharge Plan Patient/Caregiver Discharge Instructions Activity: increase activity as tolerated Diet: Consistent Carbohydrate Activity Restrictions/Additional Instructions: Make sure you see your sales solutions associate within the next 3 to 10 days. Prescriptions: No Action fluoxetine 20 mg capsule 20 mg PO DAILY Qty: 30 2RF lisinopril 10 mg tablet 10 mg PO QDAY Qty: 90 1RF Rx Instructions: 1 tab QD noon, if no N/V or dehydration clonidine 0.2 mg/24 hr patch weekly 1 patch transdermal QWEEK Qty: 4 0RF Rx Instructions: Change on Tuesday (DME) Dexcom sensor & monitor See Rx Instructions .Route .MEDSUPPLY Qty: 1 0RF Rx Instructions: As directed (DME) blood-glucose meter Misc See Rx Instructions .Route Qty: 1 3RF Rx Instructions: use to test blood sugar 5 times daily (DME) Blood Glucose Test Strip See Rx Instructions .ROUTE .MEDSUPPLY Qty: 500 3RF Rx Instructions: use to test blood sugar 5 times daily (DME) lancets Misc See Rx Instructions .Route Qty: 500 3RF Rx Instructions: use to test blood sugar 5 times daily (DME) Ketone Urine Test Strip See Rx Instructions .Route Qty: 100 0RF Rx Instructions: use to test urine for ketones daily carvedilol 6.25 mg tablet 6.25 mg PO BID 0RF Rx Instructions: must administer with a meal/food insulin aspart U-100 [Novolog U-100 Insulin aspart] 100 unit/mL solution 0 - 70 unit subcut QDAY 0RF Rx Instructions: via insulin pump lorazepam 1 mg tablet 1 - 2 tab PO QDAY 0RF Baqsimi 3 mg/actuation spray,non-aerosol 1 spray intranasal ONCE PRN (Reason: hypoglycemia) 0RF Follow Up Plan Follow up with: Flo Peña MD [Primary Care Provider] - Patient Disposition: Left Against Medical Advice Prognosis: Critical Rehab Potential: Fair I certify that the patient requires SNF services: No Overall status at discharge: patient is progressing back to baseline Discharge Orders: Discharge Order (Routine); Ordered 10/30/21 Ordered By: Mustapha Freeman
[2021-11-10 06:39] LABS: Cannabinoid Confirmation Positive
== END 2021-10-30 16:52 | disposition left against medical advice (07) ==
LOC: ED 20:52 → ICU 20:52
PROVIDERS: ADMIT Internal Medicine; ATTEND Internal Medicine

== ENCOUNTER 2022-01-02 14:23 | Inpatient (IN) ==
[2022-01-02] MEDS ORDERED: 0.9 % SODIUM CHLORIDE 1,000 ML IV ONE ×3 (14:27→18:51)
--- NOTE | 2022-01-02 14:46 | Emergency Department Note ---
Nausea/Vomiting/Diarrhea HPI General Chief complaint: Nausea/Vomiting/Diarrhea Stated complaint: Nausea Time Seen by Provider: 01/02/22 14:25 Source: EMS Mode of arrival: EMS Limitations: no limitations History of Present Illness HPI Narrative: Narrative: 36-year-old male with a history of type 1 diabetes, recurrent diabetic ketoacidosis, gastroparesis, cyclic vomiting, hypertension, hyperlipidemia and CKD presents the ER to be evaluated for nausea, vomiting, dehydration and high readings on his glucometer. He states he has had insurance issues lately and for the past 2 weeks he has not had any sensors for his blood glucose monitor/insulin pump. He says he has not been watching it whatsoever. He was brought in by EMS. They started a liter of fluid. He says he has been having some nonbilious nonbloody projectile vomiting. He denies abdominal pain, fever, chills, body aches, chest pain or chest pressure. Patient does have altered mental status and is not very participative in history or exam. Related Data Home Medications Medication Instructions Recorded Confirmed glucagon 3 mg/actuation nasal 1 spray INTRANASAL ONCE PRN 10/30/21 12/09/21 spray (Baqsimi) lorazepam 1 mg tablet 1 - 2 tab PO QDAY 10/30/21 12/09/21 Previous Rx's Medication Instructions Recorded lisinopril 10 mg tablet 10 mg PO QDAY #90 tab 07/01/21 Dexcom sensor & monitor #1 ea 08/27/21 acetone (urine) test (Ketone Urine #100 ea 09/10/21 Test) blood sugar diagnostic (Blood #500 ea 09/10/21 Glucose Test) blood-glucose meter #1 ea 09/10/21 lancets #500 ea 09/10/21 fluoxetine 20 mg capsule 20 mg PO DAILY #30 cap 09/17/21 carvedilol 6.25 mg tablet 6.25 mg PO BID #60 tab 11/17/21 insulin aspart U-100 100 unit/mL 70 unit (0.7 mL) SUBCUT QDAY #60 ml 11/27/21 subcutaneous solution (Novolog U-100 Insulin aspart) ondansetron 4 mg disintegrating 8 mg PO Q8H PRN #10 tab 12/09/21 tablet promethazine 12.5 mg rectal 12.5 mg NJ Q6H PRN #12 ea 12/09/21 suppository clonidine 0.2 mg/24 hr weekly 1 patch TRANSDERMAL QWEEK #4 ea 12/10/21 transdermal patch Allergies Allergy/AdvReac Type Severity Reaction Status Date / Time NSAIDS (Non-Steroidal Allergy Unknown Unknown Verified 12/09/21 13:39 Anti-Inflamma metoclopramide [From Reglan] AdvReac Mild Agitated Verified 12/09/21 13:39 prochlorperazine AdvReac Mild "My whole Verified 12/09/21 13:39 [From Compazine] body freaks out." silver AdvReac Mild dystonic Verified 12/09/21 13:39 IV iodine contrast Allergy Unknown Unknown Uncoded 12/09/21 13:39 Review of Systems ROS ROS Narrative: Narrative: All systems ED: reviewed and negative except as stated. PFS Narrative Patient History Narrative: Narrative: Medical/Surgical/Family History All Active Problems Testosterone deficiency (Chronic) Nausea and vomiting (Chronic) GERD (gastroesophageal reflux disease) (Chronic) Other hammer toe(s) (acquired), left foot (Chronic) Hypertension, essential (Chronic) Hyperlipidemia (Chronic) History of neuroleptic malignant syndrome (Chronic) Dehydration (Acute) Drug-induced nausea and vomiting (Acute) Uncontrolled type 1 diabetes mellitus with diabetic nephropathy, with long-term current use of insulin (Chronic) Cyclic vomiting syndrome (Chronic) Type 1 diabetes mellitus with stage 3 chronic kidney disease and hypertension (Chronic) Marijuana use, continuous (Chronic) CKD (chronic kidney disease) (Acute) Nephrotic range proteinuria (Chronic) Controlled type 1 diabetes mellitus with chronic kidney disease (Chronic) Port-A-Cath in place (Acute) Diabetic gastroparesis associated with type 1 diabetes mellitus (Chronic) Diabetic neuropathy associated with type 1 diabetes mellitus (Chronic) Diabetic retinopathy associated with type 1 diabetes mellitus (Chronic) Anxiety (Chronic) Back pain (Chronic) Physical deconditioning (Chronic) Malnutrition (Chronic) Acute dehydration (Acute) Acute hypokalemia (Acute) QT prolongation (Acute) Dehydration (Acute) No-show for appointment (Acute) Intractable cyclical vomiting with nausea (Acute) Diabetic gastroparesis (Acute) ROSALIO (acute kidney injury) (Acute) Hyperglycemia (Acute) Dehydration (Acute) Major depressive disorder, recurrent (Chronic) Generalized anxiety disorder (Chronic) Trauma and stressor-related disorder (Chronic) Diabetic gastroparesis (Acute) Nausea & vomiting (Acute) Acute dehydration (Acute) Ketosis (Acute) Uncontrolled diabetes mellitus (Acute) DKA (diabetic ketoacidosis) (Acute) Hyperosmolar hyperglycemic state (HHS) (Acute) Diabetic gastroparesis (Acute) Metabolic alkalosis (Acute) Stage 2 acute kidney injury (Acute) Hyponatremia (Acute) DKA (diabetic ketoacidosis) (Acute) Hyperosmolar hyperglycemic state (HHS) (Acute) Acute hypokalemia (Acute) ROSALIO (acute kidney injury) (Acute) Nausea & vomiting (Acute) Hypochloremia (Acute) Alkalosis (Acute) Has multiple sexual partners (Acute) Medical History Abdominal pain, epigastric Anxiety Back pain Chronic ulcer of left foot Coffee ground emesis Diabetes mellitus type I Age 12, With foot ulcer Diabetic gastroparesis associated with type 1 diabetes mellitus Diabetic neuropathy associated with type 1 diabetes mellitus Diabetic peripheral neuropathy Diabetic retinopathy associated with type 1 diabetes mellitus DKA, type 1 Esophageal candidiasis Gastroenteritis Gastroparesis due to DM GERD (gastroesophageal reflux disease) Hallux valgus (acquired), left foot Has multiple sexual partners History of neuroleptic malignant syndrome To compazine (prochlorperazine). Tolerates promethazine without issue Hyperlipidemia Hypertension, essential labile due to unpredictable Rx absorption with gastroparesis and propensity for dehydration Holds lisinopril if persistent vomiting occurs Hypokalemia Connie-Byrne tear Malnutrition Marijuana use, continuous Nausea and vomiting Non-pressure chronic ulcer of other part of left foot limited to breakdown of skin Other hammer toe(s) (acquired), left foot Peripheral autonomic neuropathy due to DM Physical deconditioning Sepsis Tardive dyskinesia due to metoclopramide (Reglan) Testosterone deficiency Surgical History History of hand surgery Finger repair History of toe surgery left hallux Family History Mother Atrial fibrillation Essential hypertension Sister Malignant neoplasm of female breast Maternal Grandfather Malignant neoplasm of colon Recorded 11/12/10 Father Essential hypertension Other Adopted DKA, type 1 Social History Smoking Status: Never smoker Alcohol Intake Frequency: former alcohol drinker Substance Use: former substance user Exam Narrative Narrative: Narrative: Gen: Chronically ill-appearing but in no distress Eyes: PERRL, no conjunctival injection , and symmetrical lids. Sclerae non icteric HENMT: Normocephalic Atraumatic head, external nose and ears. Moist MM. CVS: +S1/S2, hyperdynamic without murmur. Radial pulses 2+ and equal bilat. No swelling RESP: Unlabored respiratory effort . Clear to auscultation bilaterally (CTAB). No noted wheezes rales or ronchi. GI: Nontender/Nondistended (NTND), No focal tenderness insulin pump in place in the left lower quadrant MSK: Extremities w/o deformity or ttp. No cyanosis or clubbing. Skin: Warm, Dry . No rashes or lesions . Cap refill less than 2. Psych: Patient is responsive to verbal stimuli but it is hard to get his attention General Limitations: no limitations Course Vital Signs Vital signs: Vital Signs Temperature 97.9 F 01/02/22 14:23 Pulse Rate 82 01/02/22 14:23 Respiratory Rate 18 01/02/22 14:23 Blood Pressure 140/77 01/02/22 14:23 Pulse Oximetry (%) 98 01/02/22 14:23 Temperature 97.9 F 01/02/22 14:23 Pulse Rate 93 H 01/02/22 16:40 Respiratory Rate 22 01/02/22 16:40 Blood Pressure 134/87 01/02/22 16:32 Pulse Oximetry (%) 100 01/02/22 16:40 [facility] Narrative Medical decision making narrative: Narrative: Patient is altered. He states he has had no insulin for his pump for the last 2 weeks upon patient reporting. Glucometer read high with EMS he was given Zofran in route as well as a liter of fluid. He will be started with another liter of fluid and will be evaluated with a DKA work-up as he has a prolonged and recurrent history of this. CBC: White count of 22 with significant left shift Chem-8: Sodium: 107 potassium: 3.2 chloride: Unable to read ionized calcium: 0.48 total CO2: 37 glucose: greater than 700 BUN: 84 creatinine: 5.9 hct: 46 hb: 15.6 incomplete and/or unreliable reading a complete metabolic panel will be ordered for actual laboratory values of patient's electrolytes and glucose CMP: Sodium corrects to 137, his glucose is extremely high at 1381 with a severe acute kidney injury on top of his chronic kidney dysfunction. Patient's chloride is severely low. He does have an elevated magnesium but his potassium is at 3.2 which will need correction. Patient has an anion gap of 20. Beta hydroxybutyrate: 21.6 HIGH Magnesium: Magnesium elevated Venous blood gas lactate: Lactate of 4, significant metabolic alkalosis likely from ion losses. Chest x-ray: Normal chest x-ray Urine dip: EKG: Normal sinus rhythm at a rate of 75 bpm with possible left atrial enlargement, left ventricular hypertrophy, early repull. No evidence of acute ischemia. ROSALIO, Hyperglycemia, HHS, hypokalemia, hypermagnesemia, normal corrected sodium Given the patient's severe metabolic derangements, glucose of 1381 and altered mental status this patient will need ICU admission I spoke with Dr. Basilio on the phone who will be down to admit the patient for further evaluation. Patient has had 2 L of fluid and we are repeating his potassium currently before starting insulin. Lab Data Result diagrams: 01/02/22 14:51 01/02/22 14:51 Labs: Lab Results 01/02/22 01/02/22 01/02/22 Range/Units 14:42 14:51 14:51 WBC 22.2 H (4.5-11.0) K/mcL RBC 4.63 (4.63-6.08) M/mcL Hgb 12.9 L (13.7-17.5) g/dL Hct 43.9 (40.1-51.0) % MCV 94.8 (80.0-100.0) fL MCH 27.9 (26.0-34.0) pg MCHC 29.4 L (31.0-36.0) g/dL RDW 12.7 (11.5-14.5) % Plt Count 252 (140-440) K/mcL MPV 13.5 H (7.4-10.4) fL Neut % (Auto) 87.1 H (38.0-78.0) % Lymph % (Auto) 2.3 L (15.5-49.0) % [place] % (Auto) 10.5 (1.0-12.0) % Eos % (Auto) 0 (0.0-7.0) % Baso % (Auto) 0.1 (0.0-2.0) % Lymph # (Auto) 0.50 L (1.50-4.80) K/mcL [place] # (Auto) 2.32 H (0.10-0.90) K/mcL Eos # (Auto) 0 (0.00-0.70) K/mcL Baso # (Auto) 0.02 (0.00-0.30) K/mcL Absolute Neutrophils 19.33 H (1.80-8.00) K/mcL POC VBG pH 7.64 H* (7.32-7.42) POC VBG pCO2 at Temp 36.8 L (41-51) POC VBG pO2 46 H (25-40) POC VBG HCO3 39.5 H (24-28) POC VBG Total CO2 41.0 H (25-29) POC Venous O2 Sat 90.0 H (40-70) POC VBG Base Excess 19.0 H* (-2-2) Sodium (133-145) mmol/L Potassium (3.3-5.1) mmol/L Chloride (96-108) mmol/L Carbon Dioxide (22-30) mmol/L Anion Gap (8.0-16.0) BUN (6-20) mg/dL Creatinine (0.7-1.2) mg/dL GFR Calculation Glucose (70-105) mg/dL POC Venous Lactate 4.0 H* (0.5-2) Calcium (8.6-10.4) mg/dL Magnesium (1.6-2.5) mg/dL Total Bilirubin 0.5 (0.1-1.0) mg/dL Direct Bilirubin < 0.2 (0-0.3) mg/dL AST 23 (<40) U/L ALT 15 (<40) U/L Alkaline Phosphatase 147 H (39-117) U/L Total Protein 6.9 (5.9-8.4) gm/dL Albumin 3.8 (3.2-5.2) gm/dL Globulin 3.1 (2.2-3.7) gm/dL Albumin/Globulin Ratio (1.0-2.3) Beta-Hydroxybutyrate 21.67 H (<0.27) mmol/L 01/02/22 Range/Units 14:51 WBC (4.5-11.0) K/mcL RBC (4.63-6.08) M/mcL Hgb (13.7-17.5) g/dL Hct (40.1-51.0) % MCV (80.0-100.0) fL MCH (26.0-34.0) pg MCHC (31.0-36.0) g/dL RDW (11.5-14.5) % Plt Count (140-440) K/mcL MPV (7.4-10.4) fL Neut % (Auto) (38.0-78.0) % Lymph % (Auto) (15.5-49.0) % [place] % (Auto) (1.0-12.0) % Eos % (Auto) (0.0-7.0) % Baso % (Auto) (0.0-2.0) % Lymph # (Auto) (1.50-4.80) K/mcL [place] # (Auto) (0.10-0.90) K/mcL Eos # (Auto) (0.00-0.70) K/mcL Baso # (Auto) (0.00-0.30) K/mcL Absolute Neutrophils (1.80-8.00) K/mcL POC VBG pH (7.32-7.42) POC VBG pCO2 at Temp (41-51) POC VBG pO2 (25-40) POC VBG HCO3 (24-28) POC VBG Total CO2 (25-29) POC Venous O2 Sat (40-70) POC VBG Base Excess (-2-2) Sodium 117 L* (133-145) mmol/L Potassium 3.2 L (3.3-5.1) mmol/L Chloride < 60 L (96-108) mmol/L Carbon Dioxide 37 H (22-30) mmol/L Anion Gap 20.0 H (8.0-16.0) BUN 85 H (6-20) mg/dL Creatinine 5.7 H* (0.7-1.2) mg/dL GFR Calculation 12 Glucose 1381 H* (70-105) mg/dL POC Venous Lactate (0.5-2) Calcium 7.0 L (8.6-10.4) mg/dL Magnesium 4.3 H* (1.6-2.5) mg/dL Total Bilirubin 0.5 (0.1-1.0) mg/dL Direct Bilirubin (0-0.3) mg/dL AST 23 (<40) U/L ALT 15 (<40) U/L Alkaline Phosphatase 147 H (39-117) U/L Total Protein 6.9 (5.9-8.4) gm/dL Albumin 3.8 (3.2-5.2) gm/dL Globulin 3.1 (2.2-3.7) gm/dL Albumin/Globulin Ratio 1.2 (1.0-2.3) Beta-Hydroxybutyrate (<0.27) mmol/L Discharge Plan Patient/Caregiver Discharge Instructions Pt seen by [employer]/PA only: Yes Clinical Impression: Hyperosmolar hyperglycemic state (HHS), Acute hypokalemia, ROSALIO (acute kidney injury), Nausea & vomiting, Hypochloremia, Alkalosis Patient Disposition: Xfer As Inpt ([facility]) Follow up with: Flo Peña MD [Primary Care Provider] - Prescriptions: No Action fluoxetine 20 mg capsule 20 mg PO DAILY Qty: 30 2RF lisinopril 10 mg tablet 10 mg PO QDAY Qty: 90 1RF Rx Instructions: 1 tab QD noon, if no N/V or dehydration carvedilol 6.25 mg tablet 6.25 mg PO BID Qty: 60 2RF Rx Instructions: must administer with a meal/food insulin aspart U-100 [Novolog U-100 Insulin aspart] 100 unit/mL solution 70 unit subcut QDAY Qty: 60 1RF Rx Instructions: use up to 70 units daily via insulin pump clonidine 0.2 mg/24 hr patch weekly 1 patch transdermal QWEEK Qty: 4 2RF Rx Instructions: Change on Tuesday (DME) Dexcom sensor & monitor See Rx Instructions .Route .MEDSUPPLY Qty: 1 0RF Rx Instructions: As directed ondansetron 4 mg tablet,disintegrating 8 mg PO Q8H PRN (Reason: nausea and vomiting) Qty: 10 0RF promethazine 12.5 mg suppository 12.5 mg NJ Q6H PRN (Reason: nausea and vomiting) Qty: 12 0RF Basaglar KwikPen U-100 Insulin 100 unit/mL (3 mL) insulin pen 0RF (DME) blood-glucose meter Misc See Rx Instructions .Route Qty: 1 3RF Rx Instructions: use to test blood sugar 5 times daily (DME) Blood Glucose Test Strip See Rx Instructions .ROUTE .MEDSUPPLY Qty: 500 3RF Rx Instructions: use to test blood sugar 5 times daily (DME) lancets Misc See Rx Instructions .Route Qty: 500 3RF Rx Instructions: use to test blood sugar 5 times daily (DME) Ketone Urine Test Strip See Rx Instructions .Route Qty: 100 0RF Rx Instructions: use to test urine for ketones daily lorazepam 1 mg tablet 1 - 2 tab PO QDAY 0RF Baqsimi 3 mg/actuation spray,non-aerosol 1 spray intranasal ONCE PRN (Reason: hypoglycemia) 0RF
--- NOTE | 2022-01-02 15:11 | XRay Report ---
CLINICAL INFORMATION: Nausea and vomiting COMPARISON: 10/29/2021 TECHNIQUE: PA and Lateral views FINDINGS: Right subclavian Port-A-Cath tip overlies the SVC right atrial junction in stable satisfactory position. The heart size, mediastinum and pulmonary vessels are unremarkable. The lungs are clear. There are no effusions. The bones and soft tissues are within normal limits. IMPRESSION: Normal chest. Interpreted and Authenticated by: Demetrius Smart 01/02/22
[2022-01-02 15:40] LABS: Basophils # (Auto) 0.02 K/mcL (0.00-0.30); Basophils % (Auto) 0.1 % (0.0-2.0); Eosinophils # (Auto) 0 K/mcL (0.00-0.70); Eosinophils % (Auto) 0 % (0.0-7.0); Hematocrit 43.9 % (40.1-51.0); Hemoglobin 12.9 g/dL (13.7-17.5); Lymphocytes % (Auto) 2.3 % (15.5-49.0); Mean Cell Volume 94.8 fL (80.0-100.0); Mean Corpuscular HGB Conc 29.4 g/dL (31.0-36.0); Mean Platelet Volume 13.5 fL (7.4-10.4); Monocytes # (Auto) 2.32 K/mcL (0.10-0.90); Monocytes % (Auto) 10.5 % (1.0-12.0); Neutrophils % (Auto) 87.1 % (38.0-78.0); Platelet Count 252 K/mcL (140-440); RBC 4.63 M/mcL (4.63-6.08); Red Cell Distribution Width 12.7 % (11.5-14.5); WBC 22.2 K/mcL (4.5-11.0)
[2022-01-02 15:58] LABS: ALT/SGPT 15 U/L (<40); AST/SGOT 23 U/L (<40); Albumin 3.8 gm/dL (3.2-5.2); Alkaline Phosphatase 147 U/L (39-117); Bilirubin,Direct < 0.2 mg/dL (0-0.3); Bilirubin,Total 0.5 mg/dL (0.1-1.0); Globulin 3.1 gm/dL (2.2-3.7)
[2022-01-02] MEDS ORDERED: PROMETHAZINE 25 MG/ML VIAL IV ONE (16:02)
[2022-01-02 16:15] LABS: Beta Hydroxybutyrate 21.67 mmol/L (<0.27)
[2022-01-02 16:23] LABS: ALT/SGPT 15 U/L (<40); AST/SGOT 23 U/L (<40); Albumin 3.8 gm/dL (3.2-5.2); Albumin/Globulin Ratio 1.2 (1.0-2.3); Alkaline Phosphatase 147 U/L (39-117); Bilirubin,Total 0.5 mg/dL (0.1-1.0); Blood Urea Nitrogen 85 mg/dL (6-20); Carbon Dioxide 37 mmol/L (22-30); Chloride < 60 mmol/L (96-108); Globulin 3.1 gm/dL (2.2-3.7); Glomerular Filtration Rate 12; Glucose 1381 mg/dL (70-105)
[2022-01-02] MEDS ORDERED: POTASSIUM CHLORIDE 40 MEQ in DEXTROSE 5% IN WATER 500 ML IV ONE (16:27)
[2022-01-02] MEDS ORDERED: LORazepam 2 MG/ML VIAL IV ONE ×2 (16:32→21:16)
--- NOTE | 2022-01-02 16:52 | Internal Med History&Physical ---
HPI History of Present Illness Patient information: Note initiated : 01/02/22 at 4:45 pm Service Date, if different from initiated Date: [] Patient: Mauri Levine a 36 y/o M admitted on for Nausea. Chief Complaint: [] History of present illness: Mr. Levine is a 36 year old M presents to the ED with nausea and vomiting. Multiple admissions for same problem. Patient is diabetes type 1 on insulin per. Per notes because of insurance issues over the past several weeks he has had not had any sensors for his blood glucose pump and he has not been checking it an alternative way. History is obtained from chart as patient does not answer my questions. He is laying on his side curled up under his blanket occasionally coughing. Nursing found his insulin pump to be completely out of insulin. Patient continued to vomit in the ED became severely hypoxic and cyanotic. Patient required intubation for airway protection. CT brain pending to rule out any cerebral edema, if any hint of cerebral edema patient will need to be shipped to higher level of care. Blood glucose was 1381, lactate 4, potassium mildly low at 3.2 and sodium 117 but corrected within normal limits. Creatinine 5.7 with a BUN of 85. Elevated mag and hypokalemic. Beta hydroxybutyric acid 21. Reactive leukocytosis. Bicarb elevated. Anion gap noted IV fluids given and insulin drip started. Review of Systems: Unable to obtain due to altered mental status. PFSH PFSH All Active Problems Testosterone deficiency (Chronic) Nausea and vomiting (Chronic) GERD (gastroesophageal reflux disease) (Chronic) Other hammer toe(s) (acquired), left foot (Chronic) Hypertension, essential (Chronic) Hyperlipidemia (Chronic) History of neuroleptic malignant syndrome (Chronic) Dehydration (Acute) Drug-induced nausea and vomiting (Acute) Uncontrolled type 1 diabetes mellitus with diabetic nephropathy, with long-term current use of insulin (Chronic) Cyclic vomiting syndrome (Chronic) Type 1 diabetes mellitus with stage 3 chronic kidney disease and hypertension (Chronic) Marijuana use, continuous (Chronic) CKD (chronic kidney disease) (Acute) Nephrotic range proteinuria (Chronic) Controlled type 1 diabetes mellitus with chronic kidney disease (Chronic) Port-A-Cath in place (Acute) Diabetic gastroparesis associated with type 1 diabetes mellitus (Chronic) Diabetic neuropathy associated with type 1 diabetes mellitus (Chronic) Diabetic retinopathy associated with type 1 diabetes mellitus (Chronic) Anxiety (Chronic) Back pain (Chronic) Physical deconditioning (Chronic) Malnutrition (Chronic) Acute dehydration (Acute) Acute hypokalemia (Acute) QT prolongation (Acute) Dehydration (Acute) No-show for appointment (Acute) Intractable cyclical vomiting with nausea (Acute) Diabetic gastroparesis (Acute) ROSALIO (acute kidney injury) (Acute) Hyperglycemia (Acute) Dehydration (Acute) Major depressive disorder, recurrent (Chronic) Generalized anxiety disorder (Chronic) Trauma and stressor-related disorder (Chronic) Diabetic gastroparesis (Acute) Nausea & vomiting (Acute) Acute dehydration (Acute) Ketosis (Acute) Uncontrolled diabetes mellitus (Acute) DKA (diabetic ketoacidosis) (Acute) Hyperosmolar hyperglycemic state (HHS) (Acute) Diabetic gastroparesis (Acute) Metabolic alkalosis (Acute) Stage 2 acute kidney injury (Acute) Hyponatremia (Acute) DKA (diabetic ketoacidosis) (Acute) Hyperosmolar hyperglycemic state (HHS) (Acute) Acute hypokalemia (Acute) ROSALIO (acute kidney injury) (Acute) Nausea & vomiting (Acute) Hypochloremia (Acute) Alkalosis (Acute) Has multiple sexual partners (Acute) Medical History Abdominal pain, epigastric Anxiety Back pain Chronic ulcer of left foot Coffee ground emesis Diabetes mellitus type I Age 12, With foot ulcer Diabetic gastroparesis associated with type 1 diabetes mellitus Diabetic neuropathy associated with type 1 diabetes mellitus Diabetic peripheral neuropathy Diabetic retinopathy associated with type 1 diabetes mellitus DKA, type 1 Esophageal candidiasis Gastroenteritis Gastroparesis due to DM GERD (gastroesophageal reflux disease) Hallux valgus (acquired), left foot Has multiple sexual partners History of neuroleptic malignant syndrome To compazine (prochlorperazine). Tolerates promethazine without issue Hyperlipidemia Hypertension, essential labile due to unpredictable Rx absorption with gastroparesis and propensity for dehydration Holds lisinopril if persistent vomiting occurs Hypokalemia Connie-Byrne tear Malnutrition Marijuana use, continuous Nausea and vomiting Non-pressure chronic ulcer of other part of left foot limited to breakdown of skin Other hammer toe(s) (acquired), left foot Peripheral autonomic neuropathy due to DM Physical deconditioning Sepsis Tardive dyskinesia due to metoclopramide (Reglan) Testosterone deficiency Surgical History History of hand surgery Finger repair History of toe surgery left hallux Family History Mother Atrial fibrillation Essential hypertension Sister Malignant neoplasm of female breast Maternal Grandfather Malignant neoplasm of colon Recorded 11/12/10 Father Essential hypertension Other Adopted DKA, type 1 Social History adopted: Yes household members: family housing: other details: 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 marital status: single occupational status: disabled occupation: On disability since 2016 physical activity: walking smoking status: Former smoker quit date: 02/12/11 alcohol intake frequency: former alcohol drinker substance use type: former substance user seatbelt use: always MEDS/ALLERGIES Home Medications and Allergies Home Medications Medication Instructions Recorded Confirmed Type lisinopril 10 mg tablet 10 mg PO QDAY #90 tab 07/01/21 12/09/21 Rx Dexcom sensor & monitor #1 ea 08/27/21 12/09/21 Rx acetone (urine) test (Ketone Urine #100 ea 09/10/21 12/09/21 Rx Test) blood sugar diagnostic (Blood #500 ea 09/10/21 12/09/21 Rx Glucose Test) blood-glucose meter #1 ea 09/10/21 12/09/21 Rx lancets #500 ea 09/10/21 12/09/21 Rx fluoxetine 20 mg capsule 20 mg PO DAILY #30 cap 09/17/21 12/09/21 Rx glucagon 3 mg/actuation nasal 1 spray INTRANASAL ONCE PRN 10/30/21 12/09/21 History spray (Baqsimi) lorazepam 1 mg tablet 1 - 2 tab PO QDAY 10/30/21 12/09/21 History carvedilol 6.25 mg tablet 6.25 mg PO BID #60 tab 11/17/21 12/09/21 Rx insulin aspart U-100 100 unit/mL 70 unit (0.7 mL) SUBCUT QDAY #60 ml 11/27/21 12/09/21 Rx subcutaneous solution (Novolog U-100 Insulin aspart) ondansetron 4 mg disintegrating 8 mg PO Q8H PRN #10 tab 12/09/21 12/09/21 Rx tablet promethazine 12.5 mg rectal 12.5 mg IL Q6H PRN #12 ea 12/09/21 12/09/21 Rx suppository clonidine 0.2 mg/24 hr weekly 1 patch TRANSDERMAL QWEEK #4 ea 12/10/21 Rx transdermal patch Allergies Allergy/AdvReac Type Severity Reaction Status Date / Time NSAIDS (Non-Steroidal Allergy Unknown Unknown Verified 12/09/21 13:39 Anti-Inflamma metoclopramide [From Reglan] AdvReac Mild Agitated Verified 12/09/21 13:39 prochlorperazine AdvReac Mild "My whole Verified 12/09/21 13:39 [From Compazine] body freaks out." silver AdvReac Mild dystonic Verified 12/09/21 13:39 IV iodine contrast Allergy Unknown Unknown Uncoded 12/09/21 13:39 EXAM Constitutional Vitals: Temp Pulse Resp BP Pulse Ox 97.9 F 93 H 22 134/87 100 01/02/22 14:23 01/02/22 16:40 01/02/22 16:40 01/02/22 16:32 01/02/22 16:40 Exam: General: mild distress, weak Eyes/N/T: EOMI, PERRL, dry MM Head/Neck: neck supple, normocephalic atraumatic CV: Mildly tacky but regular, 2/6 SM, normal s1/s2 Pulm: Clear b/l, no wheezing/rhonchi/rales Abd: soft, nontender, +BS x4 Ext: no clubbing/cyanosis/edema Neuro: Lethargic, no focal deficits, moves all extremities, CN 2-12 grossly intact, sensations intact b/l upper/lower Skin: warm/dry DATA Data Completed and Pending Labs: Labs from last 24 hours 01/02/22 01/02/22 01/02/22 14:51 14:51 14:51 WBC 22.2 H RBC 4.63 Hgb 12.9 L Hct 43.9 MCV 94.8 MCH 27.9 MCHC 29.4 L RDW 12.7 Plt Count 252 MPV 13.5 H Neut % (Auto) 87.1 H Lymph % (Auto) 2.3 L [place] % (Auto) 10.5 Eos % (Auto) 0 Baso % (Auto) 0.1 Lymph # (Auto) 0.50 L [place] # (Auto) 2.32 H Eos # (Auto) 0 Baso # (Auto) 0.02 Absolute Neutrophils 19.33 H POC VBG pH POC VBG pCO2 at Temp POC VBG pO2 POC VBG HCO3 POC VBG Total CO2 POC Venous O2 Sat POC VBG Base Excess Sodium 117 L* Potassium 3.2 L Chloride < 60 L Carbon Dioxide 37 H Anion Gap 20.0 H BUN 85 H Creatinine 5.7 H* GFR Calculation 12 Glucose 1381 H* POC Venous Lactate Calcium 7.0 L Magnesium 4.3 H* Total Bilirubin 0.5 0.5 Direct Bilirubin < 0.2 AST 23 23 ALT 15 15 Alkaline Phosphatase 147 H 147 H Total Protein 6.9 6.9 Albumin 3.8 3.8 Globulin 3.1 3.1 Albumin/Globulin Ratio 1.2 Beta-Hydroxybutyrate 21.67 H 01/02/22 14:42 WBC RBC Hgb Hct MCV MCH MCHC RDW Plt Count MPV Neut % (Auto) Lymph % (Auto) [place] % (Auto) Eos % (Auto) Baso % (Auto) Lymph # (Auto) [place] # (Auto) Eos # (Auto) Baso # (Auto) Absolute Neutrophils POC VBG pH 7.64 H* POC VBG pCO2 at Temp 36.8 L POC VBG pO2 46 H POC VBG HCO3 39.5 H POC VBG Total CO2 41.0 H POC Venous O2 Sat 90.0 H POC VBG Base Excess 19.0 H* Sodium Potassium Chloride Carbon Dioxide Anion Gap BUN Creatinine GFR Calculation Glucose POC Venous Lactate 4.0 H* Calcium Magnesium Total Bilirubin Direct Bilirubin AST ALT Alkaline Phosphatase Total Protein Albumin Globulin Albumin/Globulin Ratio Beta-Hydroxybutyrate A/P Narrative A/P Narrative: A: *HHS-DKA severe (*DMI with Gastroparesis/Neuropathy): -A1c *Medication noncompliance: *Acute hypoxic respiratory failure requiring mechanical intubation: Patient vomiting and not protecting airway -Intubated (01/02) *Metabolic Encephalopathy: *Lactic acidosis: 2/2 above *PseudoHyponatremia: *Electrolyte d/o (hypokalemia/hypochloremia/hypocalcemia): *Acute renal failure on CKD IV: Follows with Dr. Mills *Anemia, chronic: *HTN: On coreg/clonidine/lisinopril *Anxiety/depression: on Fluoxetine *Long QT Syndrome: noted on EKG's since 2019. Pt is on SSRI *GERD: *long-term prognosis guarded if he doesn't become more vigilant in caring for his disease -this is 10th ED visit this year and 6th admission for same issue. P: -patient in critical state -vent management -Insulin gtt, f/u chem and gap, restart pump when able (needs pump insulin refilled) -IV fluids -Monitor electrolytes and replace -clear liquids when patient is tolerant and advance diet as able to gastroparesis diet (low fat, soluble fiber) -Antiemetics that won't prolong QT (Scopolamine,Benzodiazepines, Dexamethasone) -cont clonidine/BB, restart ACEI once renal fxn at baseline, IV prn BP meds -Home medication reconciliation -ppx: Heparin/H2 Time Spent With Patient Time: Total time spent is greater than 50% in coordination of care (as documented) at patient's floor/unit and/or counseling patient: Critical Care Time: Yes Total Critical Care Time: 65
[2022-01-02] MEDS ORDERED: POTASSIUM CHLORIDE 20 MEQ/10 ML VIAL IV ONE (16:57)
[2022-01-02] MEDS ORDERED: INSULIN REGULAR, HUMAN 1 UNIT/0.01 ML UNIT IV ONE ×2 (17:02→17:13)
[2022-01-02] MEDS ORDERED: ETOMIDATE 20 MG/10 ML VIAL IV ONE ×2 (17:34→17:47)
[2022-01-02] MEDS ORDERED: INSULIN REGULAR, HUMAN 50 UNIT in 0.9 % SODIUM CHLORIDE 99.5 ML IV ONE (17:40)
[2022-01-02] MEDS ORDERED: PROPOFOL 1,000 MG in PREMIX 1 BAG IV SCH (17:45)
[2022-01-02] MEDS ORDERED: ROCURONIUM 10 MG/ML ML IV ONE (17:47)
[2022-01-02 18:01] LABS: Phosphorous 15.2 mg/dL (2.5-4.5)
[2022-01-02] MEDS ORDERED: METOCLOPRAMIDE 10 MG/2 ML VIAL IV ONE (18:56)
[2022-01-02] MEDS ORDERED: POTASSIUM CHLORIDE 20 MEQ TABLET PO PRN ×2 (19:51)
[2022-01-02] MEDS ORDERED: POLYETHYLENE GLYCOL 3350 17 GM PACKET PO PRN (19:51)
[2022-01-02] MEDS ORDERED: POTASSIUM CHLORIDE 40 MEQ in DEXTROSE 5% IN WATER 500 ML IV PRN (19:51)
[2022-01-02] MEDS ORDERED: ACETAMINOPHEN 325 MG TABLET PO PRN (19:51)
[2022-01-02] MEDS ORDERED: LABETALOL 5 MG/ML ML IV PRN (19:51)
[2022-01-02] MEDS ORDERED: cloNIDine HCL 0.1 MG TABLET PO PRN (19:51)
[2022-01-02] MEDS: INSULIN REGULAR, HUMAN 50 UNIT in 0.9 % SODIUM CHLORIDE 99.5 ML IV SCH (19:51)
[2022-01-02] MEDS ORDERED: ONDANSETRON 4 MG/2 ML VIAL IV PRN (19:51)
[2022-01-02] MEDS ORDERED: SENNOSIDES 1 TABLET PO PRN (19:51)
[2022-01-02] MEDS ORDERED: IPRATROPIUM/ALBUTEROL 3 ML AMPUL.NEB NEB PRN (19:51)
[2022-01-02] MEDS ORDERED: DEXAMETHASONE 10 MG/ML VIAL IV ONE (19:51)
[2022-01-02] MEDS ORDERED: SCOPOLAMINE 1 PATCH PATCH TOPICAL SCH (20:00)
[2022-01-02] MEDS: 0.9 % SODIUM CHLORIDE 250 ML IV SCH ×2 (20:00)
[2022-01-02] MEDS ORDERED: fentaNYL 100 MCG/2 ML VIAL IV ONE (20:21)
[2022-01-02] MEDS ORDERED: LORazepam 2 MG/ML VIAL ONE ×2 (20:21→21:31)
[2022-01-02] MEDS: 0.9 % SODIUM CHLORIDE 1,000 ML IV SCH (20:45)
[2022-01-02] MEDS: fentaNYL 100 MCG/2 ML VIAL IV PRN ×3 (20:50→23:22)
[2022-01-02] MEDS: LORazepam 2 MG/ML VIAL IV PRN (20:50)
[2022-01-02] MEDS ORDERED: FAMOTIDINE/PF 20 MG/2 ML VIAL IV SCH (21:00)
[2022-01-02] MEDS: HEPARIN 5,000 UNIT/ML VIAL SQ SCH (22:01)
[2022-01-02] MEDS: PROPOFOL 1,000 MG in PREMIX 1 BAG IV SCH (22:14)
[2022-01-02] MEDS: 0.9 % SODIUM CHLORIDE 10 ML SYRINGE IV SCH (22:23)
[2022-01-02] MEDS: ACETAMINOPHEN 650 MG/65 ML BAG IV PRN (22:23)
[2022-01-02] MEDS ORDERED: ACETAMINOPHEN 1,000 MG/100 ML BAG IV ONE (22:32)
[2022-01-02 22:33] LABS: Estimated Average Glucose(eAG) 192 mg/dL; Hemoglobin A1C 8.3 % Hgb (4.0-6.0)
[2022-01-02] MEDS: INSULIN REGULAR, HUMAN 1 UNIT/0.01 ML UNIT IV PRN (22:53)
[2022-01-02] MEDS ORDERED: INSULIN REGULAR, HUMAN 1 UNIT/0.01 ML UNIT ONE (23:01)
[2022-01-02 23:22] LABS: Glucose 830 mg/dL (70-105)
[2022-01-02] MEDS: CHLORHEXIDINE GLUCONATE 1 ML ORAL.SOL SWABMOUTH SCH (23:28)
[2022-01-02 23:58] LABS: Appearance,Urine Clear (Clear); Bilirubin,Urine Negative (Negative); Color,Urine Yellow; Culture Indicated,Urine No; Ketones,Urine >=160 mg/dL mg/dL (Negative); Leukocyte Esterase,Urine Negative /uL (Negative); Nitrate,Urine Negative (Negative); PH,Urine 5.5 (5.0-9.0); Urine Blood Large ery/mcL (Negative); Urine Hyaline Cast 3 /lph (0-2); Urine RBC 0 /hpf (0-3); Urine Squamous Epithelial Cell 0 /hpf (0-4); Urine WBC 3 /hpf (0-4); Urobilinogen,Urine Normal
[2022-01-03] MEDS ORDERED: POTASSIUM CHLORIDE 20 MEQ PACKET PO ONE (00:22)
[2022-01-03] MEDS ORDERED: POTASSIUM CHLORIDE 40 MEQ in DEXTROSE 5% IN WATER 500 ML IV ONE (00:24)
[2022-01-03] MEDS ORDERED: POTASSIUM CHLORIDE 20 MEQ in DEXTROSE 5% IN WATER 250 ML IV ONE (00:26)
[2022-01-03] MEDS ORDERED: PIPERACILLIN SODIUM/TAZOBACTAM 3.375 GM in DEXTROSE 5% IN WATER 50 ML IV SCH (00:30)
[2022-01-03 00:34] LABS: Glucose 723 mg/dL (70-105)
[2022-01-03] MEDS: PROPOFOL 1,000 MG in PREMIX 1 BAG IV SCH ×3 (00:34→10:58)
[2022-01-03] MEDS ORDERED: POTASSIUM CHLORIDE 40 MEQ in 0.9 % SODIUM CHLORIDE 500 ML IV ONE (00:43)
[2022-01-03] MEDS ORDERED: POTASSIUM CHLORIDE 20 MEQ in 0.9 % SODIUM CHLORIDE 250 ML IV ONE (00:44)
[2022-01-03] MEDS ORDERED: POTASSIUM CHLORIDE 20 MEQ/10 ML VIAL IV ONE ×3 (00:45→00:57)
[2022-01-03] MEDS ORDERED: POTASSIUM CHLORIDE 20 MEQ PACKET ONE (00:45)
[2022-01-03 01:09] LABS: Amphetamine Screen,Urine None detected; Barbiturate Screen,Urine None detected; Benzodiazepines Screen,Urine None detected; Cannabinoid Screen,Urine Suspect Positive; Cocaine Screen,Urine None detected; Opiate Screen,Urine None detected; Oxycodone, Urine Screen None detected; Phencyclidine Screen,Urine None detected
[2022-01-03] MEDS ORDERED: INSULIN REGULAR, HUMAN 1 UNIT/0.01 ML UNIT ONE ×2 (01:25→03:13)
[2022-01-03] MEDS: 0.9 % SODIUM CHLORIDE 1,000 ML IV SCH (01:25)
[2022-01-03 01:31] LABS: Blood Urea Nitrogen 89 mg/dL (6-20); Calcium 6.7 mg/dL (8.6-10.4); Carbon Dioxide 48 mmol/L (22-30); Chloride 63 mmol/L (96-108); Glomerular Filtration Rate 12; Glucose 543 mg/dL (70-105)
[2022-01-03] MEDS: INSULIN REGULAR, HUMAN 50 UNIT in 0.9 % SODIUM CHLORIDE 99.5 ML IV SCH (01:50)
[2022-01-03] MEDS: fentaNYL 100 MCG/2 ML VIAL IV PRN ×6 (02:15→10:19)
[2022-01-03] MEDS: LORazepam 2 MG/ML VIAL IV PRN (02:57)
[2022-01-03] MEDS: INSULIN REGULAR, HUMAN 1 UNIT/0.01 ML UNIT IV PRN (03:05)
--- NOTE | 2022-01-03 03:47 | XRay Report ---
CLINICAL INFORMATION: OG tube placement COMPARISON: None. FINDINGS: Orogastric tube tip is in the gastric fundus. The stool gas pattern is unremarkable. There is no free air, soft tissue mass, organomegaly or pathologic calcification. IMPRESSION: Normal abdomen Interpreted and Authenticated by: Demetrius Smart 01/03/22
--- NOTE | 2022-01-03 03:50 | XRay Report ---
CLINICAL INFORMATION: Postintubation COMPARISON: None. TECHNIQUE: PA and Lateral views FINDINGS: Endotracheal tip is 3 cm above the angella. Right subclavian Port-A-Cath in stable satisfactory position. The heart size, mediastinum and pulmonary vessels are unremarkable. The lungs are clear. There are no effusions. The bones and soft tissues are within normal limits. Moderate gastric air now noted IMPRESSION: Normal chest. Interpreted and Authenticated by: Demetrius Smart 01/03/22
--- NOTE | 2022-01-03 04:05 | Cat Scan Report ---
CLINICAL INFORMATION: Acute mental status change COMPARISON: None. TECHNIQUE: 2.5 mm helical slices were obtained in the skull base to vertex. Following reconstruction, axial reformatted images were reviewed at bone and parenchymal windows. The exam was performed using radiation dose optimization techniques including, but not limited to, automated exposure control, adjustment of the mA and/or kV according to patient size and use of iterative reconstruction technique. FINDINGS: The ventricles, sulci, fissures, and cisterns are symmetrically enlarged compatible with mild atrophy.. No extra-axial fluid collections are identified. The cerebrum, brainstem and cerebellum are unremarkable. There is no evidence of hemorrhage, mass effect, or edema. Bone windows show no osseous abnormality. IMPRESSION: Mild atrophy-unexpected in a 36-year-old. No acute finding Moderate rhinitis. Mild left maxillary sinusitis Interpreted and Authenticated by: Demetrius Smart 01/03/22
[2022-01-03 04:26] LABS: ABG Methemoglobin 0.2 % (0.4-1.5); Total Hemoglobin 12.9 gm/Dl (13.5-16.5); VBG Base Excess 25 (-2-3); VBG HCO3 46.6 mmol/L (24.0-28.0); VBG PH 7.72 U (7.32-7.42); VBG PO2 49.9 mmHg (25.0-40.0); VBG Total CO2 47.7 mmol/L (25.0-29.0)
[2022-01-03 04:28] LABS: Basophils # (Auto) 0.01 K/mcL (0.00-0.30); Basophils % (Auto) 0.1 % (0.0-2.0); Eosinophils # (Auto) 0 K/mcL (0.00-0.70); Eosinophils % (Auto) 0 % (0.0-7.0); Hematocrit 34.6 % (40.1-51.0); Hemoglobin 12.1 g/dL (13.7-17.5); Lymphocytes # (Auto) 0.77 K/mcL (1.50-4.80); Mean Platelet Volume 12.6 fL (7.4-10.4); Monocytes # (Auto) 1.85 K/mcL (0.10-0.90); Monocytes % (Auto) 12.1 % (1.0-12.0); Neutrophils % (Auto) 82.8 % (38.0-78.0); Platelet Count 219 K/mcL (140-440); RBC 4.27 M/mcL (4.63-6.08); Red Cell Distribution Width 12.1 % (11.5-14.5); WBC 15.3 K/mcL (4.5-11.0)
[2022-01-03] MEDS: ACETAMINOPHEN 650 MG/65 ML BAG IV PRN (04:51)
[2022-01-03 04:52] LABS: Beta Hydroxybutyrate 0.98 mmol/L (<0.27)
[2022-01-03] MEDS ORDERED: ACETAMINOPHEN 1,000 MG/100 ML BAG IV ONE (05:01)
[2022-01-03 05:05] LABS: ALT/SGPT 23 U/L (<40); AST/SGOT 56 U/L (<40); Albumin 3.6 gm/dL (3.2-5.2); Albumin/Globulin Ratio 1.3 (1.0-2.3); Alkaline Phosphatase 128 U/L (39-117); Bilirubin,Direct 0.3 mg/dL (<0.3); Bilirubin,Total 0.6 mg/dL (0.1-1.0); Blood Urea Nitrogen 80 mg/dL (6-20); Calcium 6.9 mg/dL (8.6-10.4); Carbon Dioxide 50 mmol/L (22-30); Chloride 71 mmol/L (96-108); Globulin 2.7 gm/dL (2.2-3.7); Glomerular Filtration Rate 12; Glucose 279 mg/dL (70-105); Lactate Dehydrogenase 342 U/L (135-225); Phosphorous 1.3 mg/dL (2.5-4.5); Triglycerides 151 mg/dL (<150); Uric Acid 11.9 mg/dL (2.5-8.0)
[2022-01-03] MEDS: DEXTROSE 5%-NS 1,000 ML IV SCH ×2 (05:42→12:57)
[2022-01-03] MEDS: 0.9 % SODIUM CHLORIDE 10 ML SYRINGE IV SCH (06:06)
--- NOTE | 2022-01-03 07:06 | Internal Med Progress Note ---
SUBJECTIVE Subjective Patient information: Note initiated : 01/03/22 at 6:58 am Service Date, if different from initiated Date: [] Patient: Mauri Levine a 36 y/o M admitted on 01/02/22 for Nausea. Chief Complaint: [] Interval history: History of present illness: Mr. Levine is a 36 year old M presents to the ED with nausea and vomiting. Multiple admissions for same problem. Patient is diabetes type 1 on insulin per. Per notes because of insurance issues over the past several weeks he has had not had any sensors for his blood glucose pump and he has not been checking it an alternative way. History is obtained from chart as patient does not answer my questions. He is laying on his side curled up under his blanket occasionally coughing. Nursing found his insulin pump to be completely out of insulin. Patient continued to vomit in the ED became severely hypoxic and cyanotic. Patient required intubation for airway protection. CT brain pending to rule out any cerebral edema, if any hint of cerebral edema patient will need to be shipped to higher level of care. Blood glucose was 1381, lactate 4, potassium mildly low at 3.2 and sodium 117 but corrected within normal limits. Creatinine 5.7 with a BUN of 85. Elevated mag and hypokalemic. Beta hydroxybutyric acid 21. Reactive leukocytosis. Bicarb elevated. Anion gap noted IV fluids given and insulin drip started. 01/03 Patient being aggressively treated with IV fluid and insulin. Alkalosis not improving. Patient developed fevers last night. Blood cultures taken and empir ic antibiotic started. Creatinine no improvement overnight. Electrolyte disturbance. Nephrology consulted > given the lack of improvement with current treatment, Dr. Yadav recommends transferring for acute dialysis. Review of system Unable to obtain due to sedation and altered mental state Constitutional Vitals: Vital Signs Temp Pulse Resp BP Pulse Ox 102.0 F H 84 17 179/78 100 01/03/22 06:42 01/03/22 06:42 01/03/22 06:42 01/03/22 06:31 01/03/22 06:42 Period Temp Pulse Resp BP Sys/Menard Pulse Ox Last 24 Hr 97.9 F-102.5 F 70-105 13-34 90-179/56-131 98-100 Intake and Output 06/18/22 06/19/22 06/19/22 21:59 05:59 13:59 Intake Total 3044 3310 42 Output Total 350 2035 Balance 2694 1275 42 Weight 68.311 kg Intake & Output: Intake & Output 01/02/22 01/03/22 01/03/22 21:59 05:59 13:59 Intake Total 3044 3310 42 Output Total 350 2035 Balance 2694 1275 42 Weight 68.311 kg Intake: IV 3044 3310 42 Sodium Chloride 0.9% 1,000 ml @ 3000 1857 200 mls/hr IV .Q5H [facility] Rx#: [id number] HumuLIN R 50 UNIT In Sodium 119 Chloride 0.9% 99.5 ml @ 7 UNIT/ HR 14 mls/hr IV DUR [facility] Rx#: [id number] Zosyn 3.375 gm In Dextrose 5% 50 in Water 50 ml @ 100 mls/hr IV Q6H [facility] Rx#:[id number] Potassium Chloride 40 Meq In 520 Sodium Chloride 0.9% 500 ml @ 130 mls/hr IV ONCE ONE Rx#: [id number] Potassium Chloride 40 Meq In 520 Dextrose 5% in Water 500 ml @ 130 mls/hr IV ONCE ONE Rx#: [id number] Diprivan 1,000 mg In Premix 1 44 114 42 Bag @ 5 MCG/KG/MIN 2.041 mls/hr IV .Q24H [facility] Rx#:[id number] Tube Feeding 0 Output: Gastric Drainage 500 Oral NG/OG 500 Urine Catheter Amount 350 1535 Other: Urine Appearance Clear Uretheral (Mcknight) Clear Clear Urine Color Bright Yellow Uretheral (Mcknight) Bright Yellow Bright Yellow Exam: General: sedated on vent, no acute distress Eyes/N/T: PERRL, Head/Neck: neck supple, normocephalic atraumatic CV: RRRr, 2/6 SM, normal s1/s2 Pulm: Clear b/l, no wheezing/rhonchi/rales Abd: soft, nontender, +BS x4 Ext: no clubbing/cyanosis, trace b/l LE edema Neuro: sedated on vent, spontaneously moves all extremities Skin: warm/dry OBJ DATA Labs CBC & Chem 7: 01/03/22 04:01 01/03/22 04:01 Labs: Abnormal Lab Results 01/03/22 01/03/22 01/03/22 04:01 04:01 04:00 WBC 15.3 H RBC 4.27 L Hgb 12.1 L Hct 34.6 L MCHC MPV 12.6 H Neut % (Auto) 82.8 H Lymph % (Auto) 5.0 L Ponce % (Auto) 12.1 H Lymph # (Auto) 0.77 L Ponce # (Auto) 1.85 H Absolute Neutrophils 12.65 H POC pH POC pO2 POC HCO3 POC Total CO2 POC ABG Base Excess ABG Methemoglobin 0.2 L VBG pH 7.72 H* POC VBG pH VBG pCO2 37.0 L POC VBG pCO2 at Temp VBG pO2 49.9 H POC VBG pO2 VBG HCO3 46.6 H* POC VBG HCO3 VBG Total CO2 47.7 H* POC VBG Total CO2 VBG O2 Saturation 86.0 H POC Venous O2 Sat VBG Base Excess 25 H POC VBG Base Excess Hgb O2 Saturation Carboxyhemoglobin 4.2 H Total Hemoglobin 12.9 L Sodium 131 L Potassium 2.6 L* Chloride 71 L Carbon Dioxide 50 H* Anion Gap BUN 80 H Creatinine 5.7 H* Glucose 279 H Hemoglobin A1c Osmolality 321 H POC Arterial Lactate POC Venous Lactate Uric Acid 11.9 H Calcium 6.9 L Phosphorus 1.3 L Magnesium 3.6 H Direct Bilirubin 0.3 H AST 56 H Alkaline Phosphatase 128 H Lactate Dehydrogenase 342 H Triglycerides 151 H Beta-Hydroxybutyrate 0.98 H Urine Protein Urine Glucose (UA) Urine Ketones Urine Occult Blood Hyaline Casts U Marijuana (THC) Screen 01/03/22 01/02/22 01/02/22 00:15 23:15 23:14 WBC RBC Hgb Hct MCHC MPV Neut % (Auto) Lymph % (Auto) Ponce % (Auto) Lymph # (Auto) Ponce # (Auto) Absolute Neutrophils POC pH POC pO2 POC HCO3 POC Total CO2 POC ABG Base Excess ABG Methemoglobin VBG pH POC VBG pH VBG pCO2 POC VBG pCO2 at Temp VBG pO2 POC VBG pO2 VBG HCO3 POC VBG HCO3 VBG Total CO2 POC VBG Total CO2 VBG O2 Saturation POC Venous O2 Sat VBG Base Excess POC VBG Base Excess Hgb O2 Saturation Carboxyhemoglobin Total Hemoglobin Sodium 127 L Potassium 2.5 L* Chloride 63 L Carbon Dioxide 48 H* Anion Gap BUN 89 H Creatinine 5.8 H* Glucose 543 H* 723 H* Hemoglobin A1c Osmolality POC Arterial Lactate POC Venous Lactate Uric Acid Calcium 6.7 L Phosphorus Magnesium Direct Bilirubin AST Alkaline Phosphatase Lactate Dehydrogenase Triglycerides Beta-Hydroxybutyrate Urine Protein 100 mg/dl A Urine Glucose (UA) 500 mg/dl A Urine Ketones >=160 mg/dl A Urine Occult Blood Large A Hyaline Casts 3 H U Marijuana (THC) Screen 01/02/22 01/02/22 01/02/22 23:14 22:20 20:57 WBC RBC Hgb Hct MCHC MPV Neut % (Auto) Lymph % (Auto) Ponce % (Auto) Lymph # (Auto) Ponce # (Auto) Absolute Neutrophils POC pH 7.66 H* POC pO2 179 H POC HCO3 43.4 H POC Total CO2 45.0 H* POC ABG Base Excess 23.0 H ABG Methemoglobin VBG pH POC VBG pH VBG pCO2 POC VBG pCO2 at Temp VBG pO2 POC VBG pO2 VBG HCO3 POC VBG HCO3 VBG Total CO2 POC VBG Total CO2 VBG O2 Saturation POC Venous O2 Sat VBG Base Excess POC VBG Base Excess Hgb O2 Saturation 100.0 H Carboxyhemoglobin Total Hemoglobin Sodium Potassium Chloride Carbon Dioxide Anion Gap BUN Creatinine Glucose 830 H* Hemoglobin A1c Osmolality POC Arterial Lactate 3.7 H POC Venous Lactate Uric Acid Calcium Phosphorus Magnesium Direct Bilirubin AST Alkaline Phosphatase Lactate Dehydrogenase Triglycerides Beta-Hydroxybutyrate Urine Protein Urine Glucose (UA) Urine Ketones Urine Occult Blood Hyaline Casts U Marijuana (THC) Screen Suspect positive A 01/02/22 01/02/22 01/02/22 18:42 14:51 14:51 WBC RBC Hgb Hct MCHC MPV Neut % (Auto) Lymph % (Auto) Ponce % (Auto) Lymph # (Auto) Ponce # (Auto) Absolute Neutrophils POC pH 7.59 H POC pO2 POC HCO3 38.6 H POC Total CO2 40.0 H POC ABG Base Excess 17.0 H ABG Methemoglobin VBG pH POC VBG pH VBG pCO2 POC VBG pCO2 at Temp VBG pO2 POC VBG pO2 VBG HCO3 POC VBG HCO3 VBG Total CO2 POC VBG Total CO2 VBG O2 Saturation POC Venous O2 Sat VBG Base Excess POC VBG Base Excess Hgb O2 Saturation 99.0 H Carboxyhemoglobin Total Hemoglobin Sodium 117 L* Potassium 3.2 L Chloride < 60 L Carbon Dioxide 37 H Anion Gap 20.0 H BUN 85 H Creatinine 5.7 H* Glucose 1381 H* Hemoglobin A1c Osmolality 370 H POC Arterial Lactate 2.4 H POC Venous Lactate Uric Acid Calcium 7.0 L Phosphorus 15.2 H* Magnesium 4.3 H* Direct Bilirubin AST Alkaline Phosphatase 147 H Lactate Dehydrogenase Triglycerides Beta-Hydroxybutyrate Urine Protein Urine Glucose (UA) Urine Ketones Urine Occult Blood Hyaline Casts U Marijuana (THC) Screen 01/02/22 01/02/22 01/02/22 14:51 14:51 14:42 WBC 22.2 H RBC Hgb 12.9 L Hct MCHC 29.4 L MPV 13.5 H Neut % (Auto) 87.1 H Lymph % (Auto) 2.3 L Ponce % (Auto) Lymph # (Auto) 0.50 L Ponce # (Auto) 2.32 H Absolute Neutrophils 19.33 H POC pH POC pO2 POC HCO3 POC Total CO2 POC ABG Base Excess ABG Methemoglobin VBG pH POC VBG pH 7.64 H* VBG pCO2 POC VBG pCO2 at Temp 36.8 L VBG pO2 POC VBG pO2 46 H VBG HCO3 POC VBG HCO3 39.5 H VBG Total CO2 POC VBG Total CO2 41.0 H VBG O2 Saturation POC Venous O2 Sat 90.0 H VBG Base Excess POC VBG Base Excess 19.0 H* Hgb O2 Saturation Carboxyhemoglobin Total Hemoglobin Sodium Potassium Chloride Carbon Dioxide Anion Gap BUN Creatinine Glucose Hemoglobin A1c Osmolality POC Arterial Lactate POC Venous Lactate 4.0 H* Uric Acid Calcium Phosphorus Magnesium Direct Bilirubin AST Alkaline Phosphatase 147 H Lactate Dehydrogenase Triglycerides Beta-Hydroxybutyrate 21.67 H Urine Protein Urine Glucose (UA) Urine Ketones Urine Occult Blood Hyaline Casts U Marijuana (THC) Screen 01/02/22 14:27 WBC RBC Hgb Hct MCHC MPV Neut % (Auto) Lymph % (Auto) Ponce % (Auto) Lymph # (Auto) Ponce # (Auto) Absolute Neutrophils POC pH POC pO2 POC HCO3 POC Total CO2 POC ABG Base Excess ABG Methemoglobin VBG pH POC VBG pH VBG pCO2 POC VBG pCO2 at Temp VBG pO2 POC VBG pO2 VBG HCO3 POC VBG HCO3 VBG Total CO2 POC VBG Total CO2 VBG O2 Saturation POC Venous O2 Sat VBG Base Excess POC VBG Base Excess Hgb O2 Saturation Carboxyhemoglobin Total Hemoglobin Sodium Potassium Chloride Carbon Dioxide Anion Gap BUN Creatinine Glucose Hemoglobin A1c 8.3 H Osmolality POC Arterial Lactate POC Venous Lactate Uric Acid Calcium Phosphorus Magnesium Direct Bilirubin AST Alkaline Phosphatase Lactate Dehydrogenase Triglycerides Beta-Hydroxybutyrate Urine Protein Urine Glucose (UA) Urine Ketones Urine Occult Blood Hyaline Casts U Marijuana (THC) Screen Meds: Medications Acetaminophen (Acetaminophen 325 Mg Tablet) 650 mg PO Q6HP PRN; Protocol PRN Reason: Per Pain Protocol/Fever > 101 Albuterol/Ipratropium (Ipratropium/Albuterol 3 Ml Ampul.Neb) 3 ml NEB Q4HP PRN PRN Reason: Shortness Of Breath Chlorhexidine Gluconate (Chlorhexidine Gluconate 1 Ml Oral.Ivone) 15 ml SWABMOUTH BID KOKO Last Admin: 01/02/22 23:28 Dose: 15 ml Documented by: Clonidine HCl (Clonidine Hcl 0.1 Mg Tablet) 0.1 mg PO Q4HP PRN PRN Reason: Hypertension sbp>140 Diagnostic Test (Pha) (Accu-Chek 1 Each Strip) 1 each FS Q1 [facility] Last Admin: 01/03/22 06:03 Dose: 1 each Documented by: Famotidine (Famotidine/Pf 20 Mg/2 Ml Vial) 20 mg IV HS KOKO Last Admin: 01/02/22 22:01 Dose: 20 mg Documented by: Fentanyl (Fentanyl 100 Mcg/2 Ml Vial) 25 mcg IV Q1HP PRN; Protocol PRN Reason: Per Pain Protocol & Sedation Last Admin: 01/03/22 05:43 Dose: 25 mcg Documented by: Heparin Sodium (Porcine) (Heparin 5,000 Unit/Ml Vial) 5,000 unit SQ Q12 [facility] Last Admin: 01/02/22 22:01 Dose: 5,000 unit Documented by: Insulin Human Regular 50 unit/ (Sodium Chloride) 100 mls @ 14 mls/hr IV DUR KOKO; Protocol Last Titration: 01/03/22 04:00 Dose: 2.5 unit/hr, 5 mls/hr Documented by: Potassium Chloride 40 meq/ (Dextrose) 520 mls @ 130 mls/hr IV UD PRN PRN Reason: Potassium < 3 Propofol 1,000 mg/ Premix 100 mls @ 2.041 mls/hr IV .Q24H [facility]; Protocol Last Admin: 01/03/22 06:44 Dose: 40 mcg/kg/min, 16.329 mls/hr Documented by: Acetaminophen (Ofirmev) 650 mg in 65 mls @ 130 mls/hr IV Q6HP PRN; Protocol PRN Reason: PAIN/FEVER > 101 Last Infusion: 01/03/22 05:33 Dose: Infused Documented by: Potassium Chloride 40 meq/ (Sodium Chloride) 520 mls @ 130 mls/hr IV ONCE ONE Stop: 01/03/22 04:42 Last Infusion: 01/03/22 05:33 Dose: Infused Documented by: Potassium Chloride 20 meq/ (Sodium Chloride) 260 mls @ 130 mls/hr IV ONCE ONE Stop: 01/03/22 02:43 Last Admin: 01/03/22 05:32 Dose: 130 mls/hr Documented by: Sodium Chloride (Sodium Chloride 0.9%) 250 mls @ 20 mls/hr IV .[id number] [facility] Last Admin: 01/02/22 20:00 Dose: 20 mls/hr Documented by: Sodium Chloride (Sodium Chloride 0.9%) 250 mls @ 20 mls/hr IV .[id number] [facility] Last Admin: 01/02/22 20:00 Dose: 20 mls/hr Documented by: Potassium Phosphate 40 meq/ (Dextrose) 509.0909 mls @ 127.273 mls/hr IV ONCE ONE Stop: 01/03/22 09:26 Dextrose/Sodium Chloride (Dextrose 5%-Ns Iv Solution) 1,000 mls @ 200 mls/hr IV .Q5H [facility] Last Admin: 01/03/22 05:42 Dose: 200 mls/hr Documented by: Insulin Human Regular (Insulin Regular, Human 1 Unit/0.01 Ml Unit) 7 unit IV PRN PRN; Protocol PRN Reason: Blood Sugar - High Last Admin: 01/03/22 03:05 Dose: 7 unit Documented by: Labetalol HCl (Labetalol 5 Mg/Ml Ml) 0 mg IV Q2HP PRN PRN Reason: Hypertension Lorazepam (Lorazepam 2 Mg/Ml Vial) 0.5 mg IV Q2-4HP PRN PRN Reason: Nausea/vomiting Last Admin: 01/03/22 02:57 Dose: 0.5 mg Documented by: Ondansetron HCl (Ondansetron 4 Mg/2 Ml Vial) 4 mg IV Q4HP PRN PRN Reason: Nausea And Vomiting Polyethylene Glycol (Polyethylene Glycol 3350 17 Gm Packet) 17 gm PO DAILYP PRN PRN Reason: Constipation Potassium Chloride (Potassium Chloride 20 Meq Tablet) 40 meq PO UD PRN PRN Reason: Potssium is 3-3.5 Potassium Chloride (Potassium Chloride 20 Meq Tablet) 40 meq PO UD PRN PRN Reason: Potassium < 3 Potassium Chloride (Potassium Chloride 20 Meq Packet) 40 meq PO ONCE ONE Stop: 01/03/22 00:23 Last Admin: 01/03/22 00:47 Dose: 40 meq Documented by: Potassium/Phosphorus/Sodium (Neutra Phos 1 Packet) 2 packet PT ONCE ONE Stop: 01/03/22 05:28 Scopolamine (Scopolamine 1 Patch Patch) 1 patch TOPICAL Q72H [facility] Last Admin: 01/02/22 22:17 Dose: 1 patch Documented by: Senna (Sennosides 1 Tablet) 2 tab PO DAILYP PRN PRN Reason: Constipation Sodium Chloride (0.9 % Sodium Chloride 10 Ml Syringe) 10 ml IV Q8 [facility] Last Admin: 01/03/22 06:06 Dose: Not Given Documented by: ABG Interpretation ABG results: 01/03/22 04:00 ABG Methemoglobin 0.2 L VBG pH 7.72 H* VBG pCO2 37.0 L VBG pO2 49.9 H VBG HCO3 46.6 H* VBG Total CO2 47.7 H* VBG O2 Saturation 86.0 H VBG Base Excess 25 H A/P Narrative A/P Narrative: A: *HHS-DKA severe (*DMI with Gastroparesis/Neuropathy): -A1c 8.3 *Medication noncompliance: *Acute hypoxic respiratory failure requiring mechanical intubation: Patient vomiting and not protecting airway -Intubated (01/02) *Metabolic Encephalopathy: *severe metabolic Alkalosis: as a complication of N/V and renal failure *Lactic acidosis: 2/2 above *PseudoHyponatremia: improved *Electrolyte d/o (hypokalemia/hypochloremia/hypocalcemia, Hyperphos/Hypermag): mild improvement *Acute renal failure on CKD III-?IV: Follows with Dr. Mills -cr 5.7 -good UOP *Anemia, chronic: *HTN: On coreg/clonidine/lisinopril *Anxiety/depression: on Fluoxetine *Long QT Syndrome: noted on EKG's since 2019. Pt is on SSRI *GERD: *Fevers: searching for source of infection, given critical state, zosyn started, check man diff, BC pending *long-term prognosis guarded if he doesn't become more vigilant in caring for his disease -this is 10th ED visit this year and 6th admission for same issue. P: -patient in critical state -vent management -Insulin gtt, f/u chem and gap, restart pump when able (needs pump insulin refilled) -IV fluids -Nephro consult > transfer for acute HD. working on transfer -monitor i/os, uop -Monitor electrolytes and replace -clear liquids when patient is tolerant and advance diet as able to gastroparesis diet (low fat, soluble fiber) -Antiemetics that won't prolong QT (Scopolamine,Benzodiazepines, Dexamethasone) -cont clonidine/BB, restart ACEI once renal fxn at baseline, IV prn BP meds -Home medication reconciliation -ppx: Heparin/H2 Time Spent With Patient Time: Total time spent is greater than 50% in coordination of care (as documented) at patient's floor/unit and/or counseling patient: Critical Care Time: Yes Total Critical Care Time: 60
--- NOTE | 2022-01-03 07:33 | Nephrology Consult Note ---
HPI Data of Consult Patient: known to practice within the last 3 years Consult date: 01/03/22 Requesting physician: Deangelo Basilio Primary Care Provider: Flo Peña MD Consult Narrative Patient Information: Note initiated : 01/03/22 at 7:27 am Patient: Mauri Levine 36 y/o M admitted on 01/02/22 for Nausea. Chief Complaint: Nausea and vomiting Mauri Levine is a 36-year-old male with diabetes mellitus type 1, chronic kidney disease stage 3, hypertension admitted on 01/02/22. He was presented to [facility] for nausea and vomiting. He had acute kidney injury on chronic kidney disease stage 3a with severe metabolic alkalosis, severe hyponatremia and hypokalemia. His kidney function, severe acid-base and electrolyte abnormalities failed to i mprove despite IV fluids. Nephrology consultation requested for acute kidney injury. Chief complaint: Nausea and vomiting Reason for consult: Acute kidney injury with severe metabolic alkalosis and hyponatremia cc:: CC: Deangelo Basilio Review of Systems ROS unobtainable: due to endotracheal tube PFSH PFSH All Active Problems Metabolic alkalosis (Acute) Acute renal failure superimposed on stage 3a chronic kidney disease (Acute) Testosterone deficiency (Chronic) Nausea and vomiting (Chronic) GERD (gastroesophageal reflux disease) (Chronic) Other hammer toe(s) (acquired), left foot (Chronic) Hypertension, essential (Chronic) Hyperlipidemia (Chronic) History of neuroleptic malignant syndrome (Chronic) Dehydration (Acute) Drug-induced nausea and vomiting (Acute) Uncontrolled type 1 diabetes mellitus with diabetic nephropathy, with long-term current use of insulin (Chronic) Cyclic vomiting syndrome (Chronic) Type 1 diabetes mellitus with stage 3 chronic kidney disease and hypertension (Chronic) Marijuana use, continuous (Chronic) CKD (chronic kidney disease) (Acute) Nephrotic range proteinuria (Chronic) Controlled type 1 diabetes mellitus with chronic kidney disease (Chronic) Port-A-Cath in place (Acute) Diabetic gastroparesis associated with type 1 diabetes mellitus (Chronic) Diabetic neuropathy associated with type 1 diabetes mellitus (Chronic) Diabetic retinopathy associated with type 1 diabetes mellitus (Chronic) Anxiety (Chronic) Back pain (Chronic) Physical deconditioning (Chronic) Malnutrition (Chronic) Acute dehydration (Acute) Acute hypokalemia (Acute) QT prolongation (Acute) Dehydration (Acute) No-show for appointment (Acute) Intractable cyclical vomiting with nausea (Acute) Diabetic gastroparesis (Acute) ROSALIO (acute kidney injury) (Acute) Hyperglycemia (Acute) Dehydration (Acute) Major depressive disorder, recurrent (Chronic) Generalized anxiety disorder (Chronic) Trauma and stressor-related disorder (Chronic) Diabetic gastroparesis (Acute) Nausea & vomiting (Acute) Acute dehydration (Acute) Ketosis (Acute) Uncontrolled diabetes mellitus (Acute) DKA (diabetic ketoacidosis) (Acute) Hyperosmolar hyperglycemic state (HHS) (Acute) Diabetic gastroparesis (Acute) Metabolic alkalosis (Acute) Stage 2 acute kidney injury (Acute) Hyponatremia (Acute) DKA (diabetic ketoacidosis) (Acute) Hyperosmolar hyperglycemic state (HHS) (Acute) Acute hypokalemia (Acute) ROSALIO (acute kidney injury) (Acute) Nausea & vomiting (Acute) Hypochloremia (Acute) Alkalosis (Acute) Has multiple sexual partners (Acute) Medical History Abdominal pain, epigastric Anxiety Back pain Chronic ulcer of left foot Coffee ground emesis Diabetes mellitus type I Age 12, With foot ulcer Diabetic gastroparesis associated with type 1 diabetes mellitus Diabetic neuropathy associated with type 1 diabetes mellitus Diabetic peripheral neuropathy Diabetic retinopathy associated with type 1 diabetes mellitus DKA, type 1 Esophageal candidiasis Gastroenteritis Gastroparesis due to DM GERD (gastroesophageal reflux disease) Hallux valgus (acquired), left foot Has multiple sexual partners History of neuroleptic malignant syndrome To compazine (prochlorperazine). Tolerates promethazine without issue Hyperlipidemia Hypertension, essential labile due to unpredictable Rx absorption with gastroparesis and propensity for dehydration Holds lisinopril if persistent vomiting occurs Hypokalemia Connie-Byrne tear Malnutrition Marijuana use, continuous Nausea and vomiting Non-pressure chronic ulcer of other part of left foot limited to breakdown of skin Other hammer toe(s) (acquired), left foot Peripheral autonomic neuropathy due to DM Physical deconditioning Sepsis Tardive dyskinesia due to metoclopramide (Reglan) Testosterone deficiency Surgical History History of hand surgery Finger repair History of toe surgery left hallux Family History Mother Atrial fibrillation Essential hypertension Sister Malignant neoplasm of female breast Maternal Grandfather Malignant neoplasm of colon Recorded 11/12/10 Father Essential hypertension Other Adopted DKA, type 1 Social History adopted: Yes household members: family housing: other details: 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 marital status: single occupational status: disabled occupation: On disability since 2016 physical activity: walking smoking status: Former smoker quit date: 02/12/11 alcohol intake frequency: former alcohol drinker substance use type: former substance user seatbelt use: always MEDS/ALLERGIES Home Medications and Allergies Home Medications Medication Instructions Recorded Confirmed Type lisinopril 10 mg tablet 10 mg PO QDAY #90 tab 07/01/21 12/09/21 Rx Dexcom sensor & monitor #1 ea 08/27/21 12/09/21 Rx acetone (urine) test (Ketone Urine #100 ea 09/10/21 12/09/21 Rx Test) blood sugar diagnostic (Blood #500 ea 09/10/21 12/09/21 Rx Glucose Test) blood-glucose meter #1 ea 09/10/21 12/09/21 Rx lancets #500 ea 09/10/21 12/09/21 Rx fluoxetine 20 mg capsule 20 mg PO DAILY #30 cap 09/17/21 12/09/21 Rx glucagon 3 mg/actuation nasal 1 spray INTRANASAL ONCE PRN 10/30/21 12/09/21 History spray (Baqsimi) lorazepam 1 mg tablet 1 - 2 tab PO QDAY 10/30/21 12/09/21 History carvedilol 6.25 mg tablet 6.25 mg PO BID #60 tab 11/17/21 12/09/21 Rx insulin aspart U-100 100 unit/mL 70 unit (0.7 mL) SUBCUT QDAY #60 ml 11/27/21 12/09/21 Rx subcutaneous solution (Novolog U-100 Insulin aspart) ondansetron 4 mg disintegrating 8 mg PO Q8H PRN #10 tab 12/09/21 12/09/21 Rx tablet promethazine 12.5 mg rectal 12.5 mg NE Q6H PRN #12 ea 12/09/21 12/09/21 Rx suppository clonidine 0.2 mg/24 hr weekly 1 patch TRANSDERMAL QWEEK #4 ea 12/10/21 Rx transdermal patch Allergies Allergy/AdvReac Type Severity Reaction Status Date / Time NSAIDS (Non-Steroidal Allergy Unknown Unknown Verified 12/09/21 13:39 Anti-Inflamma metoclopramide [From Reglan] AdvReac Mild Agitated Verified 12/09/21 13:39 prochlorperazine AdvReac Mild "My whole Verified 12/09/21 13:39 [From Compazine] body freaks out." silver AdvReac Mild dystonic Verified 12/09/21 13:39 IV iodine contrast Allergy Unknown Unknown Uncoded 12/09/21 13:39 Physical Examination Vital Signs Vital signs: Temp Pulse Resp BP Pulse Ox 102.1 F H 85 14 182/75 100 01/03/22 07:01 01/03/22 07:01 01/03/22 07:01 01/03/22 07:01 01/03/22 07:01 General Appearance General appearance: intubated Integumentary Integumentary: no rash Additional Exam Additional exam: ET tube. Sedated on mechanical ventilation. Hiccups. Abdomen non distended. Mcknight catheter. No edema. No wounds. Results Lab Results Result Diagrams: 01/03/22 04:01 01/03/22 04:01 Lab results: Most recent lab results Calcium 6.9 mg/dL (8.6-10.4) L 01/03/22 04:01 Phosphorus 1.3 mg/dL (2.5-4.5) L 01/03/22 04:01 Magnesium 3.6 mg/dL (1.6-2.5) H 01/03/22 04:01 A/P Assessment and plan (1) Acute renal failure superimposed on stage 3a chronic kidney disease: Assessment and plan: Mauri Levine is a 36-year-old male with diabetes mellitus type 1, chronic kidney disease stage 3, hypertension admitted on 01/02/22. He was presented to [facility] ED for nausea and vomiting. He had acute kidney injury on chronic kidney disease stage 3a with severe metabolic alkalosis, severe hyponatremia and hypokalemia. His kidney function, severe acid-base and electrolyte abnormalities failed to improve despite IV fluids. Nephrology consultation requested for acute kidney injury. Acute kidney injury on chronic kidney disease stage 3a with hypokalemia, severe metabolic alkalosis and hyponatremia, present on arrival. Work up: Urinalysis on 01/02/22: Yellow, Clear, pH 5.5, SG 1.010, protein 100, blood large, leukocyte esterase negative. Urine random total protein/creatinine on 07/07/21: 1,110 mg/g creatinine. Renal US on 08/16/21: Hyperechoic kidneys compatible medical renal disease. Prostate is normal size-volume 28 cc. Progress: Serum creatinine increased from 1.7 on 12/09/21 to 5.7 on 01/03/22. Urine output: 1885 ml reported in the past 24 hours. Metabolic alkalosis. Hyponatremia. Hypokalemia. Recommendations/Plan: Acute urgent hemodialysis recommended for severe acid-base and electrolyte abnormalities with renal failure which failed to improve despite IV fluids r equiring transfer to higher level of care. Status: Acute (2) Metabolic alkalosis: Status: Acute (3) Hyponatremia: Status: Acute Time Spent With Patient Time: Total time spent is greater than 50% in coordination of care (as documented) at patient's floor/unit and/or counseling patient:
[2022-01-03] MEDS ORDERED: NEUTRA PHOS 1 PACKET PT SCH (08:00)
[2022-01-03] MEDS ORDERED: POTASSIUM PHOSPHATE 40 MEQ in DEXTROSE 5% IN WATER 500 ML IV SCH (08:00)
[2022-01-03] MEDS: HEPARIN 5,000 UNIT/ML VIAL SQ SCH (08:31)
[2022-01-03] MEDS: CHLORHEXIDINE GLUCONATE 1 ML ORAL.SOL SWABMOUTH SCH (08:31)
[2022-01-03] MEDS: 0.9 % SODIUM CHLORIDE 250 ML IV SCH ×2 (08:32→09:39)
[2022-01-03 08:44] LABS: ABG Methemoglobin 0.5 % (0.4-1.5); Total Hemoglobin 12.4 gm/Dl (13.5-16.5); VBG Base Excess 18 (-2-3); VBG HCO3 40.8 mmol/L (24.0-28.0); VBG Oxygen Saturation 87.5 % (40.0-70.0); VBG PCO2 40.4 mmHg (41.0-51.0); VBG PH 7.62 U (7.32-7.42)
[2022-01-03 08:52] LABS: Band Neutrophils % 8 % (0-10); Eosinophils % (Manual) 1 % (0-7); Lymphocytes % 8 % (15-49); Monocytes % (Manual) 11 % (1-12); Platelet Estimate NORMAL (Normal); RBC Morphology NORMAL (Normal); Segmented Neutrophils % 72 % (38-78)
[2022-01-03] MEDS ORDERED: PIPERACILLIN SODIUM/TAZOBACTAM 2.25 GM in DEXTROSE 5% IN WATER 50 ML IV SCH (09:00)
[2022-01-03 09:13] LABS: Blood Urea Nitrogen 77 mg/dL (6-20); Calcium 6.8 mg/dL (8.6-10.4); Carbon Dioxide 43 mmol/L (22-30); Chloride 80 mmol/L (96-108); Glomerular Filtration Rate 14; Glucose 270 mg/dL (70-105)
--- NOTE | 2022-01-03 10:00 | Transfer Summary ---
Discharge Provider Provider IMPORTANT FOLLOW-UP INFORMATION FOR PCP: Patient information: Note initiated : 01/03/22 at 9:56 am Service Date, if different from initiated Date: [] Patient: Mauri Levine 36 y/o M admitted on 01/02/22 for Nausea. Chief Complaint: [] Date of admission: 01/02/22 19:27 Discharge date: 01/03/22 Primary care physician: Flo Peña MD Consults: 01/02/22 Consult to Physician [CONS] Stat Comment: Consulting Provider: Deangelo Basilio Reason For Exam: Physician to Consult Consult to Physician [CONS] Stat Comment: Consulting Provider: Deangelo Basilio Reason For Exam: Physician to Consult 01/03/22 04:44 Consult to Physician [CONS] Routine Comment: Consulting Provider: Heriberto Yadav Reason For Exam: Physician to Consult COURSE Hospital Course Hospital course: History of present illness: Mr. Levine is a 36 year old M presents to the ED with nausea and vomiting. Multiple admissions for same problem. Patient is diabetes type 1 on insulin per. Per notes because of insurance issues over the past several weeks he has had not had any sensors for his blood glucose pump and he has not been checking it an alternative way. History is obtained from chart as patient does not answer my questions. He is laying on his side curled up under his blanket occasionally coughing. Nursing found his insulin pump to be completely out of insulin. Patient continued to vomit in the ED became severely hypoxic and cyanotic. Patient required intubation for airway protection. CT brain pending to rule out any cerebral edema, if any hint of cerebral edema patient will need to be shipped to higher level of care. Blood glucose was 1381, lactate 4, potassium mildly low at 3.2 and sodium 117 but corrected within normal limits. Creatinine 5.7 with a BUN of 85. Elevated mag and hypokalemic. Beta hydroxybutyric acid 21. Reactive leukocytosis. Bicarb elevated. Anion gap noted IV fluids given and insulin drip started. 01/03 Patient being aggressively treated with IV fluid and insulin. Alkalosis not improving. Patient developed fevers last night. Blood cultures taken and empiric antibiotic started. Creatinine no improvement overnight. Electrolyte disturbance. Nephrology consulted > given the lack of improvement with current treatment, Dr. Yadav recommends transferring for acute dialysis. Case discussed with Dr. Townsend medical anthropologist at [facility] who graciously accepted the patient in transfer Chemistry finally starting to show some mild improvement although still quite abnormal. A: *HHS-DKA severe (*DMI with Gastroparesis/Neuropathy): -A1c 8.3 *Medication noncompliance: *Acute hypoxic respiratory failure requiring mechanical intubation: Patient vomiting and not protecting airway -Intubated (01/02) for airway protection *Metabolic Encephalopathy: *severe metabolic Alkalosis: as a complication of N/V and renal failure *Lactic acidosis: 2/2 above *PseudoHyponatremia: *Electrolyte d/o (hypokalemia/hypochloremia/hypocalcemia, Hyperphos/Hypermag): mild improvement *Acute renal failure on CKD III-?IV: Follows with Dr. Mills *Anemia, chronic: *HTN: On coreg/clonidine/lisinopril *Anxiety/depression: on Fluoxetine *Long QT Syndrome: noted on EKG's since 2019. Pt is on SSRI *GERD: *Fevers: searching for source of infection, given critical state, zosyn started, check man diff, BC pending *long-term prognosis guarded if he doesn't become more vigilant in caring for his disease -this is 10th ED visit this year and 6th admission for same issue. P: -patient in critical state -Transfer to [facility] for ICU level care and need for hemodialysis Discharge diagnosis: HHS DKA metabolic encephalopathy severe electrolyte disturbance renal failu Secondary discharge diagnosis: Mechanical ventilation for airway protection lactic acidosis severe metabolic alkalosis renal failure on chronic kidney disease hypertension anxiety depression long QT Time Spent with Patient Time attestation: Total time spent providing and/or coordinating discharge services: Time spent: Greater than 30 minutes EXAM Constitutional Vitals: Temp Pulse Resp BP Pulse Ox 102.6 F H 72 19 150/86 100 01/03/22 09:01 01/03/22 09:01 01/03/22 09:09 01/03/22 09:01 01/03/22 09:09 Discharge Data Data Completed and Pending Labs on day of discharge: Labs from last 24 hours 01/03/22 01/03/22 01/03/22 08:17 07:55 04:01 WBC RBC Hgb Hct MCV MCH MCHC RDW Plt Count MPV Neut % (Auto) Lymph % (Auto) [place] % (Auto) Eos % (Auto) Baso % (Auto) Lymph # (Auto) [place] # (Auto) Eos # (Auto) Baso # (Auto) Seg Neutrophils % 72 Band Neutrophils % 8 Lymphocytes % 8 L Monocytes % (Manual) 11 Eosinophils % (Manual) 1 Absolute Neutrophils Platelet Estimate Normal RBC Morphology Normal POC pH POC pCO2 POC pO2 POC HCO3 POC Total CO2 POC ABG Base Excess ABG Methemoglobin 0.5 VBG pH 7.62 H* POC VBG pH VBG pCO2 40.4 L POC VBG pCO2 at Temp VBG pO2 55.0 H POC VBG pO2 VBG HCO3 40.8 H* POC VBG HCO3 VBG Total CO2 42.0 H* POC VBG Total CO2 VBG O2 Saturation 87.5 H POC Venous O2 Sat VBG Base Excess 18 H POC VBG Base Excess Hgb O2 Saturation Carboxyhemoglobin 3.3 H Total Hemoglobin 12.4 L Sodium 134 Potassium 2.9 L* Chloride 80 L Carbon Dioxide 43 H* Anion Gap 11.0 BUN 77 H Creatinine 4.9 H GFR Calculation 14 Glucose 270 H Hemoglobin A1c Estim Average Glucose Osmolality POC Arterial Lactate POC Venous Lactate Uric Acid Calcium 6.8 L Phosphorus Magnesium Total Bilirubin Direct Bilirubin GGT AST ALT Alkaline Phosphatase Lactate Dehydrogenase Total Protein Albumin Globulin Albumin/Globulin Ratio Triglycerides Beta-Hydroxybutyrate Urine Color Urine Appearance Urine pH Ur Specific [place] Urine Protein Urine Glucose (UA) Urine Ketones Urine Occult Blood Urine Nitrate Urine Bilirubin Urine Urobilinogen Ur Leukocyte Esterase Urine RBC Urine WBC Ur Squamous Epith Cells Urine Bacteria Hyaline Casts Ur Culture Indicated? Urine Opiates Screen Ur Opiates Confirm Ur Oxycodone Screen Urine Methadone Screen Ur Methadone Confirm Ur Barbiturates Screen Ur Barbiturate Confirm Ur Phencyclidine Scrn Urine PCP Confirm Ur Amphetamines Screen U Amphetamines Confirm U Benzodiazepines Scrn Ur Benzodiazepine, Qnt Urine Cocaine Screen Urine Cocaine Confirm U Cannabinoids Confirm U Marijuana (THC) Screen 01/03/22 01/03/22 01/03/22 04:01 04:01 04:00 WBC 15.3 H RBC 4.27 L Hgb 12.1 L Hct 34.6 L MCV 81.0 MCH 28.3 MCHC 35.0 RDW 12.1 Plt Count 219 MPV 12.6 H Neut % (Auto) 82.8 H Lymph % (Auto) 5.0 L [place] % (Auto) 12.1 H Eos % (Auto) 0 Baso % (Auto) 0.1 Lymph # (Auto) 0.77 L [place] # (Auto) 1.85 H Eos # (Auto) 0 Baso # (Auto) 0.01 Seg Neutrophils % Band Neutrophils % Lymphocytes % Monocytes % (Manual) Eosinophils % (Manual) Absolute Neutrophils 12.65 H Platelet Estimate RBC Morphology POC pH POC pCO2 POC pO2 POC HCO3 POC Total CO2 POC ABG Base Excess ABG Methemoglobin 0.2 L VBG pH 7.72 H* POC VBG pH VBG pCO2 37.0 L POC VBG pCO2 at Temp VBG pO2 49.9 H POC VBG pO2 VBG HCO3 46.6 H* POC VBG HCO3 VBG Total CO2 47.7 H* POC VBG Total CO2 VBG O2 Saturation 86.0 H POC Venous O2 Sat VBG Base Excess 25 H POC VBG Base Excess Hgb O2 Saturation Carboxyhemoglobin 4.2 H Total Hemoglobin 12.9 L Sodium 131 L Potassium 2.6 L* Chloride 71 L Carbon Dioxide 50 H* Anion Gap 10.0 BUN 80 H Creatinine 5.7 H* GFR Calculation 12 Glucose 279 H Hemoglobin A1c Estim Average Glucose Osmolality 321 H POC Arterial Lactate POC Venous Lactate Uric Acid 11.9 H Calcium 6.9 L Phosphorus 1.3 L Magnesium 3.6 H Total Bilirubin 0.6 Direct Bilirubin 0.3 H GGT 17 AST 56 H ALT 23 Alkaline Phosphatase 128 H Lactate Dehydrogenase 342 H Total Protein 6.3 Albumin 3.6 Globulin 2.7 Albumin/Globulin Ratio 1.3 Triglycerides 151 H Beta-Hydroxybutyrate 0.98 H Urine Color Urine Appearance Urine pH Ur Specific [place] Urine Protein Urine Glucose (UA) Urine Ketones Urine Occult Blood Urine Nitrate Urine Bilirubin Urine Urobilinogen Ur Leukocyte Esterase Urine RBC Urine WBC Ur Squamous Epith Cells Urine Bacteria Hyaline Casts Ur Culture Indicated? Urine Opiates Screen Ur Opiates Confirm Ur Oxycodone Screen Urine Methadone Screen Ur Methadone Confirm Ur Barbiturates Screen Ur Barbiturate Confirm Ur Phencyclidine Scrn Urine PCP Confirm Ur Amphetamines Screen U Amphetamines Confirm U Benzodiazepines Scrn Ur Benzodiazepine, Qnt Urine Cocaine Screen Urine Cocaine Confirm U Cannabinoids Confirm U Marijuana (THC) Screen 01/03/22 01/02/22 01/02/22 00:15 23:15 23:14 WBC RBC Hgb Hct MCV MCH MCHC RDW Plt Count MPV Neut % (Auto) Lymph % (Auto) [place] % (Auto) Eos % (Auto) Baso % (Auto) Lymph # (Auto) [place] # (Auto) Eos # (Auto) Baso # (Auto) Seg Neutrophils % Band Neutrophils % Lymphocytes % Monocytes % (Manual) Eosinophils % (Manual) Absolute Neutrophils Platelet Estimate RBC Morphology POC pH POC pCO2 POC pO2 POC HCO3 POC Total CO2 POC ABG Base Excess ABG Methemoglobin VBG pH POC VBG pH VBG pCO2 POC VBG pCO2 at Temp VBG pO2 POC VBG pO2 VBG HCO3 POC VBG HCO3 VBG Total CO2 POC VBG Total CO2 VBG O2 Saturation POC Venous O2 Sat VBG Base Excess POC VBG Base Excess Hgb O2 Saturation Carboxyhemoglobin Total Hemoglobin Sodium 127 L Potassium 2.5 L* Chloride 63 L Carbon Dioxide 48 H* Anion Gap 16.0 BUN 89 H Creatinine 5.8 H* GFR Calculation 12 Glucose 543 H* 723 H* Hemoglobin A1c Estim Average Glucose Osmolality POC Arterial Lactate POC Venous Lactate Uric Acid Calcium 6.7 L Phosphorus Magnesium Total Bilirubin Direct Bilirubin GGT AST ALT Alkaline Phosphatase Lactate Dehydrogenase Total Protein Albumin Globulin Albumin/Globulin Ratio Triglycerides Beta-Hydroxybutyrate Urine Color Yellow Urine Appearance Clear Urine pH 5.5 Ur Specific [place] 1.010 Urine Protein 100 mg/dl A Urine Glucose (UA) 500 mg/dl A Urine Ketones >=160 mg/dl A Urine Occult Blood Large A Urine Nitrate Negative Urine Bilirubin Negative Urine Urobilinogen Normal Ur Leukocyte Esterase Negative Urine RBC 0 Urine WBC 3 Ur Squamous Epith Cells 0 Urine Bacteria None Hyaline Casts 3 H Ur Culture Indicated? No Urine Opiates Screen Ur Opiates Confirm Ur Oxycodone Screen Urine Methadone Screen Ur Methadone Confirm Ur Barbiturates Screen Ur Barbiturate Confirm Ur Phencyclidine Scrn Urine PCP Confirm Ur Amphetamines Screen U Amphetamines Confirm U Benzodiazepines Scrn Ur Benzodiazepine, Qnt Urine Cocaine Screen Urine Cocaine Confirm U Cannabinoids Confirm U Marijuana (THC) Screen 01/02/22 01/02/22 01/02/22 23:14 22:20 20:57 WBC RBC Hgb Hct MCV MCH MCHC RDW Plt Count MPV Neut % (Auto) Lymph % (Auto) [place] % (Auto) Eos % (Auto) Baso % (Auto) Lymph # (Auto) [place] # (Auto) Eos # (Auto) Baso # (Auto) Seg Neutrophils % Band Neutrophils % Lymphocytes % Monocytes % (Manual) Eosinophils % (Manual) Absolute Neutrophils Platelet Estimate RBC Morphology POC pH 7.66 H* POC pCO2 38.3 POC pO2 179 H POC HCO3 43.4 H POC Total CO2 45.0 H* POC ABG Base Excess 23.0 H ABG Methemoglobin VBG pH POC VBG pH VBG pCO2 POC VBG pCO2 at Temp VBG pO2 POC VBG pO2 VBG HCO3 POC VBG HCO3 VBG Total CO2 POC VBG Total CO2 VBG O2 Saturation POC Venous O2 Sat VBG Base Excess POC VBG Base Excess Hgb O2 Saturation 100.0 H Carboxyhemoglobin Total Hemoglobin Sodium Potassium Chloride Carbon Dioxide Anion Gap BUN Creatinine GFR Calculation Glucose 830 H* Hemoglobin A1c Estim Average Glucose Osmolality POC Arterial Lactate 3.7 H POC Venous Lactate Uric Acid Calcium Phosphorus Magnesium Total Bilirubin Direct Bilirubin GGT AST ALT Alkaline Phosphatase Lactate Dehydrogenase Total Protein Albumin Globulin Albumin/Globulin Ratio Triglycerides Beta-Hydroxybutyrate Urine Color Urine Appearance Urine pH Ur Specific [place] Urine Protein Urine Glucose (UA) Urine Ketones Urine Occult Blood Urine Nitrate Urine Bilirubin Urine Urobilinogen Ur Leukocyte Esterase Urine RBC Urine WBC Ur Squamous Epith Cells Urine Bacteria Hyaline Casts Ur Culture Indicated? Urine Opiates Screen None detected Ur Opiates Confirm TNP Ur Oxycodone Screen None detected Urine Methadone Screen None detected Ur Methadone Confirm TNP Ur Barbiturates Screen None detected Ur Barbiturate Confirm TNP Ur Phencyclidine Scrn None detected Urine PCP Confirm TNP Ur Amphetamines Screen None detected U Amphetamines Confirm TNP U Benzodiazepines Scrn None detected Ur Benzodiazepine, Qnt TNP Urine Cocaine Screen None detected Urine Cocaine Confirm TNP U Cannabinoids Confirm Pending U Marijuana (THC) Screen Suspect positive A 01/02/22 01/02/22 01/02/22 18:42 14:51 14:51 WBC RBC Hgb Hct MCV MCH MCHC RDW Plt Count MPV Neut % (Auto) Lymph % (Auto) [place] % (Auto) Eos % (Auto) Baso % (Auto) Lymph # (Auto) [place] # (Auto) Eos # (Auto) Baso # (Auto) Seg Neutrophils % Band Neutrophils % Lymphocytes % Monocytes % (Manual) Eosinophils % (Manual) Absolute Neutrophils Platelet Estimate RBC Morphology POC pH 7.59 H POC pCO2 40.2 POC pO2 100 POC HCO3 38.6 H POC Total CO2 40.0 H POC ABG Base Excess 17.0 H ABG Methemoglobin VBG pH POC VBG pH VBG pCO2 POC VBG pCO2 at Temp VBG pO2 POC VBG pO2 VBG HCO3 POC VBG HCO3 VBG Total CO2 POC VBG Total CO2 VBG O2 Saturation POC Venous O2 Sat VBG Base Excess POC VBG Base Excess Hgb O2 Saturation 99.0 H Carboxyhemoglobin Total Hemoglobin Sodium 117 L* Potassium 3.2 L Chloride < 60 L Carbon Dioxide 37 H Anion Gap 20.0 H BUN 85 H Creatinine 5.7 H* GFR Calculation 12 Glucose 1381 H* Hemoglobin A1c Estim Average Glucose Osmolality 370 H POC Arterial Lactate 2.4 H POC Venous Lactate Uric Acid Calcium 7.0 L Phosphorus 15.2 H* Magnesium 4.3 H* Total Bilirubin 0.5 Direct Bilirubin GGT AST 23 ALT 15 Alkaline Phosphatase 147 H Lactate Dehydrogenase Total Protein 6.9 Albumin 3.8 Globulin 3.1 Albumin/Globulin Ratio 1.2 Triglycerides Beta-Hydroxybutyrate Urine Color Urine Appearance Urine pH Ur Specific [place] Urine Protein Urine Glucose (UA) Urine Ketones Urine Occult Blood Urine Nitrate Urine Bilirubin Urine Urobilinogen Ur Leukocyte Esterase Urine RBC Urine WBC Ur Squamous Epith Cells Urine Bacteria Hyaline Casts Ur Culture Indicated? Urine Opiates Screen Ur Opiates Confirm Ur Oxycodone Screen Urine Methadone Screen Ur Methadone Confirm Ur Barbiturates Screen Ur Barbiturate Confirm Ur Phencyclidine Scrn Urine PCP Confirm Ur Amphetamines Screen U Amphetamines Confirm U Benzodiazepines Scrn Ur Benzodiazepine, Qnt Urine Cocaine Screen Urine Cocaine Confirm U Cannabinoids Confirm U Marijuana (THC) Screen 01/02/22 01/02/22 01/02/22 14:51 14:51 14:42 WBC 22.2 H RBC 4.63 Hgb 12.9 L Hct 43.9 MCV 94.8 MCH 27.9 MCHC 29.4 L RDW 12.7 Plt Count 252 MPV 13.5 H Neut % (Auto) 87.1 H Lymph % (Auto) 2.3 L [place] % (Auto) 10.5 Eos % (Auto) 0 Baso % (Auto) 0.1 Lymph # (Auto) 0.50 L [place] # (Auto) 2.32 H Eos # (Auto) 0 Baso # (Auto) 0.02 Seg Neutrophils % Band Neutrophils % Lymphocytes % Monocytes % (Manual) Eosinophils % (Manual) Absolute Neutrophils 19.33 H Platelet Estimate RBC Morphology POC pH POC pCO2 POC pO2 POC HCO3 POC Total CO2 POC ABG Base Excess ABG Methemoglobin VBG pH POC VBG pH 7.64 H* VBG pCO2 POC VBG pCO2 at Temp 36.8 L VBG pO2 POC VBG pO2 46 H VBG HCO3 POC VBG HCO3 39.5 H VBG Total CO2 POC VBG Total CO2 41.0 H VBG O2 Saturation POC Venous O2 Sat 90.0 H VBG Base Excess POC VBG Base Excess 19.0 H* Hgb O2 Saturation Carboxyhemoglobin Total Hemoglobin Sodium Potassium Chloride Carbon Dioxide Anion Gap BUN Creatinine GFR Calculation Glucose Hemoglobin A1c Estim Average Glucose Osmolality POC Arterial Lactate POC Venous Lactate 4.0 H* Uric Acid Calcium Phosphorus Magnesium Total Bilirubin 0.5 Direct Bilirubin < 0.2 GGT AST 23 ALT 15 Alkaline Phosphatase 147 H Lactate Dehydrogenase Total Protein 6.9 Albumin 3.8 Globulin 3.1 Albumin/Globulin Ratio Triglycerides Beta-Hydroxybutyrate 21.67 H Urine Color Urine Appearance Urine pH Ur Specific [place] Urine Protein Urine Glucose (UA) Urine Ketones Urine Occult Blood Urine Nitrate Urine Bilirubin Urine Urobilinogen Ur Leukocyte Esterase Urine RBC Urine WBC Ur Squamous Epith Cells Urine Bacteria Hyaline Casts Ur Culture Indicated? Urine Opiates Screen Ur Opiates Confirm Ur Oxycodone Screen Urine Methadone Screen Ur Methadone Confirm Ur Barbiturates Screen Ur Barbiturate Confirm Ur Phencyclidine Scrn Urine PCP Confirm Ur Amphetamines Screen U Amphetamines Confirm U Benzodiazepines Scrn Ur Benzodiazepine, Qnt Urine Cocaine Screen Urine Cocaine Confirm U Cannabinoids Confirm U Marijuana (THC) Screen 01/02/22 14:27 WBC RBC Hgb Hct MCV MCH MCHC RDW Plt Count MPV Neut % (Auto) Lymph % (Auto) [place] % (Auto) Eos % (Auto) Baso % (Auto) Lymph # (Auto) [place] # (Auto) Eos # (Auto) Baso # (Auto) Seg Neutrophils % Band Neutrophils % Lymphocytes % Monocytes % (Manual) Eosinophils % (Manual) Absolute Neutrophils Platelet Estimate RBC Morphology POC pH POC pCO2 POC pO2 POC HCO3 POC Total CO2 POC ABG Base Excess ABG Methemoglobin VBG pH POC VBG pH VBG pCO2 POC VBG pCO2 at Temp VBG pO2 POC VBG pO2 VBG HCO3 POC VBG HCO3 VBG Total CO2 POC VBG Total CO2 VBG O2 Saturation POC Venous O2 Sat VBG Base Excess POC VBG Base Excess Hgb O2 Saturation Carboxyhemoglobin Total Hemoglobin Sodium Potassium Chloride Carbon Dioxide Anion Gap BUN Creatinine GFR Calculation Glucose Hemoglobin A1c 8.3 H Estim Average Glucose 192 Osmolality POC Arterial Lactate POC Venous Lactate Uric Acid Calcium Phosphorus Magnesium Total Bilirubin Direct Bilirubin GGT AST ALT Alkaline Phosphatase Lactate Dehydrogenase Total Protein Albumin Globulin Albumin/Globulin Ratio Triglycerides Beta-Hydroxybutyrate Urine Color Urine Appearance Urine pH Ur Specific [place] Urine Protein Urine Glucose (UA) Urine Ketones Urine Occult Blood Urine Nitrate Urine Bilirubin Urine Urobilinogen Ur Leukocyte Esterase Urine RBC Urine WBC Ur Squamous Epith Cells Urine Bacteria Hyaline Casts Ur Culture Indicated? Urine Opiates Screen Ur Opiates Confirm Ur Oxycodone Screen Urine Methadone Screen Ur Methadone Confirm Ur Barbiturates Screen Ur Barbiturate Confirm Ur Phencyclidine Scrn Urine PCP Confirm Ur Amphetamines Screen U Amphetamines Confirm U Benzodiazepines Scrn Ur Benzodiazepine, Qnt Urine Cocaine Screen Urine Cocaine Confirm U Cannabinoids Confirm U Marijuana (THC) Screen Discharge Plan Patient/Caregiver Discharge Instructions Prescriptions: No Action fluoxetine 20 mg capsule 20 mg PO DAILY Qty: 30 2RF lisinopril 10 mg tablet 10 mg PO QDAY Qty: 90 1RF Rx Instructions: 1 tab QD noon, if no N/V or dehydration carvedilol 6.25 mg tablet 6.25 mg PO BID Qty: 60 2RF Rx Instructions: must administer with a meal/food insulin aspart U-100 [Novolog U-100 Insulin aspart] 100 unit/mL solution 70 unit subcut QDAY Qty: 60 1RF Rx Instructions: use up to 70 units daily via insulin pump clonidine 0.2 mg/24 hr patch weekly 1 patch transdermal QWEEK Qty: 4 2RF Rx Instructions: Change on Tuesday (DME) Dexcom sensor & monitor See Rx Instructions .Route .MEDSUPPLY Qty: 1 0RF Rx Instructions: As directed (DME) blood-glucose meter Misc See Rx Instructions .Route Qty: 1 3RF Rx Instructions: use to test blood sugar 5 times daily (DME) Blood Glucose Test Strip See Rx Instructions .ROUTE .MEDSUPPLY Qty: 500 3RF Rx Instructions: use to test blood sugar 5 times daily (DME) lancets Misc See Rx Instructions .Route Qty: 500 3RF Rx Instructions: use to test blood sugar 5 times daily (DME) Ketone Urine Test Strip See Rx Instructions .Route Qty: 100 0RF Rx Instructions: use to test urine for ketones daily lorazepam 1 mg tablet 1 - 2 tab PO QDAY 0RF Baqsimi 3 mg/actuation spray,non-aerosol 1 spray intranasal ONCE PRN (Reason: hypoglycemia) 0RF ondansetron 4 mg tablet,disintegrating 4 mg PO Q8H PRN (Reason: nausea and vomiting) 0RF Follow Up Plan Follow up with: Flo Peña MD [Primary Care Provider] - Patient Disposition: [facility] Prognosis: Serious Overall status at discharge: patient is not back to baseline Discharge Orders: Discharge Order (Routine); Ordered 01/03/22 Ordered By: Deangelo Basilio
[2022-01-03] MEDS: INSULIN REGULAR, HUMAN 1 UNIT/0.01 ML UNIT IV SCH ×3 (10:20→10:32)
[2022-01-03] MEDS ORDERED: DEXTROSE 5%-NS 1,000 ML IV SCH (10:33)
--- NOTE | 2022-01-03 15:36 | XRay Report ---
CLINICAL INFORMATION: Dyspnea COMPARISON: 01/02/2022 TECHNIQUE: Portable FINDINGS: Endotracheal tip is 4 cm above the anglela. OG tip is in the ascitic body and right subclavian Port-A-Cath tip remains in stable satisfactory position SVC right atrial junction. The heart size, mediastinum and pulmonary vessels are unremarkable. The lungs are clear. There are no effusions. The bones and soft tissues are within normal limits. IMPRESSION: Normal chest. Interpreted and Authenticated by: Demetrius Smart 01/03/22
--- NOTE | 2022-01-04 13:44 | EKG ---
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 Measurements Intervals [place] Rate: 75 P: 86 [place]: 147 QRS: 90 QRSD: 113 T: 59 QT: 502 QTc: 561 Interpretive Statements Sinus rhythm Right atrial enlargement Probable left ventricular hypertrophy ST elev, probable normal early repol pattern Prolonged QT interval Electronically Signed On 01-04-2022 13:44:29 PDT by Demetrius Interiano M.D. /[id number]
== END 2022-01-03 11:20 | disposition short-term general hospital (02) | DRG 637 ==
LOC: ED 14:23 → ICU 19:27
PROVIDERS: ADMIT Internal Medicine; ATTEND Internal Medicine

== ENCOUNTER 2022-05-18 09:36 | Inpatient (IN) ==
--- NOTE | 2022-05-18 09:44 | Emergency Department Note ---
HPI General Chief complaint: Nausea/Vomiting/Diarrhea Stated complaint: vomiting, dehydration Time Seen by Provider: 05/18/22 09:44 Source: patient Mode of arrival: wheelchair Limitations: no limitations History of Present Illness HPI Narrative: Narrative: Patient is a 36-year-old male with a past medical history significant for GERD, hypertension, hyperlipidemia, type 1 diabetes, cyclic vomiting syndrome, CKD, a nd gastroparesis who presents to the emergency department due to nausea, vomiting, and concern for dehydration. Patient has not giving a significant amount of his history at this time, so mother instead is. She states that he has had several days of nausea and vomiting, and seemed to improve yesterday, but then today again worsened. She states that for 9 days Zofran seem to be enough to control his symptoms, but then he began to have nausea and vomiting again. She states that he has been unable to keep any food or fluids down. She states that this morning he was mildly less responsive and continued to have nausea and vomiting. She also states that she was concerned that he looked dehydrated. She denies any other concerns at this time. Patient is unable to answer review of systems questions and states that he feels okay now after receiving Zofran. Related Data Home Medications Medication Instructions Recorded Confirmed carvedilol 6.25 mg tablet 1 tab PO BID 05/18/22 05/18/22 Previous Rx's Medication Instructions Recorded Dexcom sensor & monitor #1 ea 08/27/21 acetone (urine) test (Ketone Urine #100 ea 09/10/21 Test strips) blood sugar diagnostic (Blood #500 ea 09/10/21 Glucose Test strips) blood-glucose meter #1 ea 09/10/21 lancets #500 ea 09/10/21 insulin aspart U-100 100 unit/mL See Rx Instructions subcut TID #60 01/12/22 subcutaneous solution (Novolog mL U-100 Insulin aspart) insulin syringes (disposable) 1 mL #500 ea 01/12/22 venlafaxine 75 mg capsule,extended 225 mg PO QAM #90 caps 03/09/22 release 24 hr mirtazapine 15 mg disintegrating 15 mg PO HS #90 tabs 03/11/22 tablet promethazine 25 mg rectal 25 mg MD Q6H PRN nausea and 04/09/22 suppository (Promethegan) vomiting #12 ea captopril 12.5 mg tablet 12.5 mg PO TID ckd, HTN, DM #90 04/20/22 tabs glucagon 3 mg/actuation nasal 3 mg intranasal ONCE PRN 04/20/22 spray (Baqsimi) hypoglycemia #1 ea ondansetron 4 mg disintegrating 4 mg PO Q8H cyclic vomiting #120 04/21/22 tablet tabs clonidine 0.2 mg/24 hr weekly 1 patch transdermal QWEEK #4 ea 04/26/22 transdermal patch sucralfate 1 gram tablet (Carafate) 1 g PO BID #70 tabs 04/28/22 fluoxetine 20 mg capsule 20 mg PO QDAY #90 caps 05/04/22 famotidine 20 mg tablet 10 mg PO BID #90 tabs 05/12/22 Allergies Allergy/AdvReac Type Severity Reaction Status Date / Time NSAIDS (Non-Steroidal Allergy Unknown Unknown Verified 05/18/22 15:30 Anti-Inflamma metoclopramide [From Reglan] AdvReac Mild Agitated Verified 05/18/22 09:40 prochlorperazine AdvReac Mild "My whole Verified 05/18/22 09:40 [From Compazine] body freaks out." silver AdvReac Mild dystonic Verified 05/18/22 09:40 IV iodine contrast Allergy Unknown Unknown Uncoded 04/20/22 14:08 Review of Systems ROS ROS Narrative: Narrative: Constitutional: Reports weakness (Generalized); Denies fever Eyes: Denies eye pain or vision change ENT ED: Denies throat pain, hearing loss or rhinorrhea Cardiovascular: Denies chest pain or edema Respiratory: Denies shortness of breath or cough Gastrointestinal: Reports abdominal pain, nausea and vomiting; Denies diarrhea, constipation, hematochezia or melena Genitourinary: Reports other (Decreased urinary frequency); Denies dysuria, frequency or hematuria Musculoskeletal: Denies back pain or myalgia Integumentary: Denies rash or lesions Neurological: Reports weakness (Generalized) and confusion; Denies headache, numbness, abnormal gait or dizziness Endocrine: Reports fatigue; Denies polyuria Hematological/Lymphatic: Denies easy bleeding or easy bruising PFSH Narrative Patient History Narrative: Narrative: Medical/Surgical/Family History All Active Problems (Updated 05/18/22 @ 15:40 by Ab Mittal MD) Testosterone deficiency (Chronic) Nausea and vomiting (Chronic) GERD (gastroesophageal reflux disease) (Chronic) Other hammer toe(s) (acquired), left foot (Chronic) Hypertension, essential (Chronic) Hyperlipidemia (Chronic) History of neuroleptic malignant syndrome (Chronic) Dehydration (Chronic) Drug-induced nausea and vomiting (Acute) Uncontrolled type 1 diabetes mellitus with diabetic nephropathy, with long-term current use of insulin (Chronic) Cyclic vomiting syndrome (Chronic) Type 1 diabetes mellitus with stage 3 chronic kidney disease and hypertension (Chronic) Marijuana use, continuous (Chronic) CKD (chronic kidney disease) (Acute) Nephrotic range proteinuria (Chronic) Controlled type 1 diabetes mellitus with chronic kidney disease (Chronic) Port-A-Cath in place (Acute) Diabetic gastroparesis associated with type 1 diabetes mellitus (Chronic) Diabetic neuropathy associated with type 1 diabetes mellitus (Chronic) Diabetic retinopathy associated with type 1 diabetes mellitus (Chronic) Anxiety (Chronic) Back pain (Chronic) Physical deconditioning (Chronic) Malnutrition (Chronic) Acute dehydration (Acute) Acute hypokalemia (Acute) QT prolongation (Acute) Dehydration (Acute) No-show for appointment (Acute) Intractable cyclical vomiting with nausea (Acute) Diabetic gastroparesis (Chronic) ROSALIO (acute kidney injury) (Acute) Hyperglycemia (Acute) Dehydration (Acute) Major depressive disorder, recurrent (Chronic) Generalized anxiety disorder (Chronic) Trauma and stressor-related disorder (Chronic) Diabetic gastroparesis (Acute) Nausea & vomiting (Acute) Acute dehydration (Acute) Ketosis (Acute) Uncontrolled diabetes mellitus (Acute) DKA (diabetic ketoacidosis) (Acute) Hyperosmolar hyperglycemic state (HHS) (Acute) Diabetic gastroparesis (Acute) Metabolic alkalosis (Acute) Stage 2 acute kidney injury (Acute) Hyponatremia (Acute) DKA (diabetic ketoacidosis) (Acute) Has multiple sexual partners (Acute) Hyperosmolar hyperglycemic state (HHS) (Acute) Acute hypokalemia (Acute) ROSALIO (acute kidney injury) (Acute) Nausea & vomiting (Acute) Hypochloremia (Acute) Alkalosis (Acute) Acute renal failure superimposed on stage 3a chronic kidney disease (Acute) Metabolic alkalosis (Acute) Altered mental status (Acute) Depression (Acute) Acute hyperglycemia (Acute) Nausea & vomiting (Acute) Seizures (Acute) Abnormal CT of brain (Acute) Sepsis (Acute) Hyponatremia (Acute) Pneumonia (Acute) Acute renal failure (Acute) Hypokalemia (Acute) Diabetic gastroparesis (Acute) Diabetic gastroparesis (Acute) CKD stage G3b/A3, GFR 30-44 and albumin creatinine ratio >300 mg/g (Acute) Renal failure (ARF), acute on chronic (Acute) ROSALIO (acute kidney injury) (Acute) Acute hypokalemia (Acute) Medical History Abdominal pain, epigastric Abnormal CT of brain Altered mental status Anxiety Back pain Chronic ulcer of left foot Coffee ground emesis Depression Diabetes mellitus type I Age 12, With foot ulcer Diabetic gastroparesis associated with type 1 diabetes mellitus Diabetic neuropathy associated with type 1 diabetes mellitus Diabetic peripheral neuropathy Diabetic retinopathy associated with type 1 diabetes mellitus DKA, type 1 Esophageal candidiasis Gastroenteritis Gastroparesis due to DM GERD (gastroesophageal reflux disease) Hallux valgus (acquired), left foot Has multiple sexual partners History of neuroleptic malignant syndrome To compazine (prochlorperazine). Tolerates promethazine without issue Hyperlipidemia Hypertension, essential labile due to unpredictable Rx absorption with gastroparesis and propensity for dehydration Holds lisinopril if persistent vomiting occurs Hypokalemia Connie-[place]rne tear Malnutrition Marijuana use, continuous Nausea and vomiting Non-pressure chronic ulcer of other part of left foot limited to breakdown of skin Other hammer toe(s) (acquired), left foot Peripheral autonomic neuropathy due to DM Physical deconditioning Seizures Sepsis Tardive dyskinesia due to metoclopramide (Reglan) Testosterone deficiency Surgical History History of hand surgery Finger repair History of toe surgery left hallux Family History Mother Atrial fibrillation Essential hypertension Sister Malignant neoplasm of female breast Maternal Grandfather Malignant neoplasm of colon Recorded 11/12/10 Father Essential hypertension Other Adopted DKA, type 1 Social History Smoking Status: Former smoker Alcohol Intake Frequency: former alcohol drinker Substance Use: former substance user Exam Narrative Narrative: Narrative: General Limitations: no limitations General appearance: Present alert and sleepy; Absent anxious or appears intoxicated Head Head: Present atraumatic and normocephalic Eye Eye: Present EOMI; Absent scleral icterus or nystagmus ENT ENT: Present mucous membranes dry; Absent nasal congestion Neck Neck: Present full ROM; Absent tenderness Chest Chest: Present normal inspection and symmetric chest wall rise Respiratory Respiratory: Present normal lung sounds bilaterally; Absent respiratory distress or accessory muscle use Cardiovascular Cardiovascular: Present regular rate, normal rhythm and normal heart sounds Adbominal Abdominal: Present soft, tenderness (Mildly tender in epigastrium) and normal bowel sounds; Absent distention Extremities Extremities: Present normal inspection and full ROM; Absent tenderness, pedal edema or pretibial edema Back Back: Present normal inspection and full ROM; Absent CVA tenderness (R) or CVA tenderness (L) Neurological Neurological: Present alert and oriented X3 Psychiatric Psychiatric: Present normal affect and normal mood Skin Skin: Present warm (WNL), dry and normal color Course Vital Signs Vital signs: Vital Signs Temperature 97.3 F 05/18/22 09:37 Pulse Rate 106 H 05/18/22 09:37 Respiratory Rate 16 05/18/22 09:37 Blood Pressure 117/92 05/18/22 09:37 Pulse Oximetry (%) 97 05/18/22 09:37 Oxygen Delivery Method 05/18/22 09:37 Temperature 97.3 F 05/18/22 09:37 Pulse Rate 92 H 05/18/22 14:39 Respiratory Rate 19 05/18/22 14:39 Blood Pressure 177/81 05/18/22 14:31 Pulse Oximetry (%) 100 05/18/22 14:39 Oxygen Delivery Method 05/18/22 14:39 Oxygen Flow Rate (L/min) 1 05/18/22 14:39 [facility] Narrative Medical decision making narrative: Narrative: Patient is a 36-year-old male who presents to the emergency department due to nausea, vomiting, and concern for dehydration. Patient's vitals are reassuring, but exam including somnolence and dry mucous membranes are concerning. Patient's labs are significant for creatinine of 5.0, potassium of 2.9, bicarb of 46. Potassium is being repleted. I called and spoke to Dr. Mills who stated that patient just needed rehydration and repeat of labs. I am concerned about patient's creatinine of 5.0 at this time with a creatinine that is normally around 1.5. I have given patient fluid rehydration, but patient continues to be somnolent. Due to concern for patient's exam and creatinine I have spoken to Dr. Basilio who has agreed to see and evaluate patient for admission. Lab Data Result diagrams: 05/18/22 09:58 05/18/22 10:14 Labs: Lab Results 05/18/22 05/18/22 05/18/22 Range/Units 09:47 09:58 10:14 WBC 13.9 H (4.5-11.0) K/mcL RBC 5.33 (4.63-6.08) M/mcL Hgb 14.2 (13.7-17.5) g/dL Hct 43.2 (40.1-51.0) % MCV 81.1 (80.0-100.0) fL MCH 26.6 (26.0-34.0) pg MCHC 32.9 (31.0-36.0) g/dL RDW 15.2 H (11.5-14.5) % Plt Count 401 (140-440) K/mcL MPV 11.4 (8.8-12.5) fL Immature Gran % (Auto) 0.4 (0.0-0.5) % Neut % (Auto) 75.7 (38.0-78.0) % Lymph % (Auto) 13.4 L (15.5-49.0) % Stone % (Auto) 10.1 (1.0-12.0) % Eos % (Auto) 0 (0.0-7.0) % Baso % (Auto) 0.4 (0.0-2.0) % Lymph # (Auto) 1.86 (1.50-4.80) K/mcL Stone # (Auto) 1.40 H (0.10-0.90) K/mcL Eos # (Auto) 0 (0.00-0.70) K/mcL Baso # (Auto) 0.06 (0.00-0.30) K/mcL Immature Gran # 0.05 (0.00-0.05) K/mcl Absolute Neutrophils 10.53 H (1.80-8.00) K/mcL POC VBG pH (7.32-7.42) POC VBG pCO2 at Temp (41-51) POC VBG pO2 (25-40) POC VBG HCO3 (24-28) POC VBG Total CO2 (25-29) POC Venous O2 Sat (40-70) POC VBG Base Excess (-2-2) VBG Lactic Acid (0.5-2) Sodium 139 (133-145) mmol/L Potassium 2.9 L* (3.3-5.1) mmol/L Chloride 70 L (96-108) mmol/L Carbon Dioxide 46 H* (22-30) mmol/L Anion Gap 23.0 H (8.0-16.0) BUN 61 H (6-20) mg/dL Creatinine 5.0 H* (0.7-1.2) mg/dL GFR Calculation 14 Glucose 157 H (70-105) mg/dL Calcium 10.2 (8.6-10.4) mg/dL Total Bilirubin 0.2 0.2 (0.1-1.0) mg/dL Direct Bilirubin < 0.2 (0-0.3) mg/dL AST 18 17 (<40) U/L ALT 13 13 (<40) U/L Alkaline Phosphatase 185 H 191 H (39-117) U/L Total Protein 9.1 H 8.4 (5.9-8.4) gm/dL Albumin 4.4 4.7 (3.2-5.2) gm/dL Globulin 4.7 H 3.7 (2.2-3.7) gm/dL Albumin/Globulin Ratio 1.3 (1.0-2.3) Lipase 20 (7-60) U/L Procalcitonin (<0.10) ng/mL 05/18/22 05/18/22 Range/Units 11:20 11:37 WBC (4.5-11.0) K/mcL RBC (4.63-6.08) M/mcL Hgb (13.7-17.5) g/dL Hct (40.1-51.0) % MCV (80.0-100.0) fL MCH (26.0-34.0) pg MCHC (31.0-36.0) g/dL RDW (11.5-14.5) % Plt Count (140-440) K/mcL MPV (8.8-12.5) fL Immature Gran % (Auto) (0.0-0.5) % Neut % (Auto) (38.0-78.0) % Lymph % (Auto) (15.5-49.0) % Stone % (Auto) (1.0-12.0) % Eos % (Auto) (0.0-7.0) % Baso % (Auto) (0.0-2.0) % Lymph # (Auto) (1.50-4.80) K/mcL Stone # (Auto) (0.10-0.90) K/mcL Eos # (Auto) (0.00-0.70) K/mcL Baso # (Auto) (0.00-0.30) K/mcL Immature Gran # (0.00-0.05) K/mcl Absolute Neutrophils (1.80-8.00) K/mcL POC VBG pH 7.58 H (7.32-7.42) POC VBG pCO2 at Temp 67.3 H* (41-51) POC VBG pO2 37 (25-40) POC VBG HCO3 62.6 H* (24-28) POC VBG Total CO2 > 50.0 H* (25-29) POC Venous O2 Sat 75.0 H (40-70) POC VBG Base Excess > 30.0 H* (-2-2) VBG Lactic Acid 1.4 (0.5-2) Sodium (133-145) mmol/L Potassium (3.3-5.1) mmol/L Chloride (96-108) mmol/L Carbon Dioxide (22-30) mmol/L Anion Gap (8.0-16.0) BUN (6-20) mg/dL Creatinine (0.7-1.2) mg/dL GFR Calculation Glucose (70-105) mg/dL Calcium (8.6-10.4) mg/dL Total Bilirubin (0.1-1.0) mg/dL Direct Bilirubin (0-0.3) mg/dL AST (<40) U/L ALT (<40) U/L Alkaline Phosphatase (39-117) U/L Total Protein (5.9-8.4) gm/dL Albumin (3.2-5.2) gm/dL Globulin (2.2-3.7) gm/dL Albumin/Globulin Ratio (1.0-2.3) Lipase (7-60) U/L Procalcitonin 1.36 H (<0.10) ng/mL Discharge Plan Patient/Caregiver Discharge Instructions Pt seen by OBSTETRICS GYNECOLOGY MD/PA only: No Clinical Impression: ROSALIO (acute kidney injury), Acute hypokalemia Patient Disposition: Xfer As Inpt ([facility]) Discharge Date/Time: 05/18/22 15:00
[2022-05-18] MEDS ORDERED: LACTATED RINGERS 1,000 ML IV ONE ×3 (09:47→13:45)
[2022-05-18] MEDS ORDERED: ONDANSETRON 4 MG/2 ML VIAL IV ONE (09:47)
[2022-05-18 10:44] LABS: Basophils # (Auto) 0.06 K/mcL (0.00-0.30); Basophils % (Auto) 0.4 % (0.0-2.0); Eosinophils # (Auto) 0 K/mcL (0.00-0.70); Eosinophils % (Auto) 0 % (0.0-7.0); Hematocrit 43.2 % (40.1-51.0); Hemoglobin 14.2 g/dL (13.7-17.5); Lymphocytes # (Auto) 1.86 K/mcL (1.50-4.80); Lymphocytes % (Auto) 13.4 % (15.5-49.0); Mean Cell Volume 81.1 fL (80.0-100.0); Mean Corpuscular HGB Conc 32.9 g/dL (31.0-36.0); Mean Platelet Volume 11.4 fL (8.8-12.5); Monocytes % (Auto) 10.1 % (1.0-12.0); Neutrophils % (Auto) 75.7 % (38.0-78.0); Platelet Count 401 K/mcL (140-440); RBC 5.33 M/mcL (4.63-6.08); Red Cell Distribution Width 15.2 % (11.5-14.5); WBC 13.9 K/mcL (4.5-11.0)
[2022-05-18 11:02] LABS: ALT/SGPT 13 U/L (<40); AST/SGOT 18 U/L (<40); Albumin 4.4 gm/dL (3.2-5.2); Alkaline Phosphatase 185 U/L (39-117); Bilirubin,Direct < 0.2 mg/dL (0-0.3); Bilirubin,Total 0.2 mg/dL (0.1-1.0); Globulin 4.7 gm/dL (2.2-3.7)
[2022-05-18 11:15] LABS: ALT/SGPT 13 U/L (<40); AST/SGOT 17 U/L (<40); Albumin 4.7 gm/dL (3.2-5.2); Albumin/Globulin Ratio 1.3 (1.0-2.3); Alkaline Phosphatase 191 U/L (39-117); Bilirubin,Total 0.2 mg/dL (0.1-1.0); Blood Urea Nitrogen 61 mg/dL (6-20); Calcium 10.2 mg/dL (8.6-10.4); Carbon Dioxide 46 mmol/L (22-30); Chloride 70 mmol/L (96-108); Globulin 3.7 gm/dL (2.2-3.7); Glomerular Filtration Rate 14; Glucose 157 mg/dL (70-105)
[2022-05-18] MEDS ORDERED: POTASSIUM CHLORIDE 40 MEQ in DEXTROSE 5% IN WATER 500 ML IV ONE (12:06)
--- NOTE | 2022-05-18 12:32 | Nephrology Progress Note ---
SUBJECTIVE Subjective Patient information: Note initiated : 05/18/22 at 12:31 pm Service Date, if different from initiated Date: [] Patient: Mauri Levine 36 y/o M admitted on for vomiting, dehydration. Chief Complaint: [N/V and ARF on CKD] Principal diagnosis: ARF Interval history: Relatively new patient to me with DM, CKD3/4, carries the Dx of diabetic gastroparesis but last gastric emptying time was WNL. so I'm suspeccious of Cyclic Vomiting Syndrome from THC use. Previous Comments 36 yr old male with Type I DM to be evaluated for progressive decline in GFR, proteinuria on dipstick U/A (>500), and U/S with 10.5 cm kidneys and slightly increased echotexture. He is hypertensive on clonidine and lisinopril.. Has multiple diabetic complications so diabetic nephropathy is most likely. Long standing IDDM with insulin pump currently basal 1.2 Units/hr and 1 unit per 40mg/dl glucose correction factor and 10 gm CHO/1 Unit insulin ratio. GCM is malfunctioning I told him to call [employer] customer support and get new sensor if they fail before the 10-14 day lifetime. Between him and his significant other, they are extremely knowledgeable but set in there ways. It is clear that cyclic vomiting and diabetic gastroparesis is the biggest problem the patient is dealing with. Could help with noticed that he freely admits to marijuana use and I asked what for and he said to help with the nausea. Before the words were out of my mouth patient's significant other pointed out that he does not feel better with hot showers to imply that this was not cannabis related hyperemesis... I will cross that bridge down the road but for now was satisfied telling him that "there is a little poison and every pill" and we should work at minimizing his medications . To that end they told me he was trying to get dromaperadone from a [place] pharmacy and he is making an appointment with a gastric motility specialist. He is also seen a materials branch chief in [place]. In [place] he had a gastric pacemeker placed [facility].There is some improvement with his pacmeaker but still multiple episodes on N/V but recent Gastric emptying Time is NORMAL. However, dehydration per month with 2 hospitalizations in past 2 months (1 at [facility] and 1 at [facility]) He continues to take clonidine as a TTS 1 patch which has the benefit of being topical and eliminates any irregular absorption. I am unaware of any GI effects except constipation. He also uses low dose lisinopril held for dehydration to avoid ARF and low dose carvedilol. He has episodesof accelerated HTN as wellsuch as last hospitalization at . A long discussion ensued on the pathophysiology of diabetic nephropathy, how his previous or at lab work in 2017 showed hyperfiltration and proteinuria and is now entered the phase of decreased renal function and proteinuria so he desp erately needs RAASI therapy to slow the rate of loss of renal function. As mentioned above the gastroparesis and frequent nausea vomiting and dehydration make a tricky to use an ABBE inhibitor so I will pick the shortest acting one (captopril) and have instructed him until not take it if he is dog sick and thinking about going to the emergency room for hydration. A both voiced understanding of that, as well as his need to completely abstain from nonsteroidal anti-inflammatories and use only Tylenol. He has DM retinopathy and macular degeneration and is receiving Avastin injections ~ q6 weeks. Repeated hospitalizations for N/V/ acute pre-renal syndrome which has reponded to volume expansion. I relayed this history to the ED MD and demanded an adequate fluid challenge and was met with a differing opinion. The following graphic representation of Serum Creatinine over the past 6 years s hows a similar pattern of ARF with improvement with hydration Serum Creatinine Previous tox screens He appears to have a contraction alkalosis, no lactate elevation and nothing to suggest DKA though his pCO2 is probably high to balance a HCO3 > 40 and AG of 24. I would check urine for TCHY products In my mind 3 liters of NS would be an appropriate fluid challenge Be caution with K repeation as his bicarb drops his K will rise but 40 mEq seem reasonble. Reasons to abmit would be continued N/V or no improvement in electrolytes, acid- base status and GFR after his volume status Vital Signs Temp Pulse Resp BP Pulse Ox O2 Del Method O2 Flow Rate 05/18/22 12:03 95 H 13 98 05/18/22 11:36 93 H 22 100 Nasal Cannula 1 05/18/22 11:23 96 H 16 86 L Room Air 05/18/22 11:11 97 H 21 99 Room Air 05/18/22 11:05 92 H 18 96 05/18/22 11:01 92 H 19 169/93 100 05/18/22 10:37 91 H 14 183/107 93 Room Air 05/18/22 10:36 91 H 18 95 Nasal Cannula 1 05/18/22 10:31 92 H 180/105 99 Nasal Cannula 1 05/18/22 10:16 90 156/91 99 Nasal Cannula 2 05/18/22 10:01 95 H 155/99 72 L Room Air 05/18/22 09:51 91 H 136/103 85 L Room Air 05/18/22 09:37 36.3 C 106 H 16 117/92 97 Room Air Intake and Output 05/17/22 05/18/22 05/18/22 21:59 05:59 13:59 Intake Total 1000 Balance 1000 Intake: IV 1000 Lactated Ringers 1,000 ml @ 1000 Wide Open IV BOLUS ONE Rx#: [id number] Other: Weight 58.967 kg Patient Weight 05/19/22 05:59 Weight 58.967 kg Medications Potassium Chloride 40 meq/ (Dextrose) 520 mls @ 130 mls/hr IV ONCE ONE Stop: 05/18/22 16:05 Laboratory Results - last 48 hr 05/18/22 05/18/22 05/18/22 09:47 09:58 10:14 WBC 13.9 H RBC 5.33 Hgb 14.2 Hct 43.2 MCV 81.1 MCH 26.6 MCHC 32.9 RDW 15.2 H Plt Count 401 MPV 11.4 Immature Gran % (Auto) 0.4 Neut % (Auto) 75.7 Lymph % (Auto) 13.4 L [place] % (Auto) 10.1 Eos % (Auto) 0 Baso % (Auto) 0.4 Lymph # (Auto) 1.86 [place] # (Auto) 1.40 H Eos # (Auto) 0 Baso # (Auto) 0.06 Immature Gran # 0.05 Absolute Neutrophils 10.53 H POC VBG pH POC VBG pCO2 at Temp POC VBG pO2 POC VBG HCO3 POC VBG Total CO2 POC Venous O2 Sat POC VBG Base Excess VBG Lactic Acid Sodium 139 Potassium 2.9 L* Chloride 70 L Carbon Dioxide 46 H* Anion Gap 23.0 H BUN 61 H Creatinine 5.0 H* GFR Calculation 14 Glucose 157 H Calcium 10.2 Total Bilirubin 0.2 0.2 Direct Bilirubin < 0.2 AST 18 17 ALT 13 13 Alkaline Phosphatase 185 H 191 H Total Protein 9.1 H 8.4 Albumin 4.4 4.7 Globulin 4.7 H 3.7 Albumin/Globulin Ratio 1.3 Lipase 20 05/18/22 11:37 WBC RBC Hgb Hct MCV MCH MCHC RDW Plt Count MPV Immature Gran % (Auto) Neut % (Auto) Lymph % (Auto) [place] % (Auto) Eos % (Auto) Baso % (Auto) Lymph # (Auto) [place] # (Auto) Eos # (Auto) Baso # (Auto) Immature Gran # Absolute Neutrophils POC VBG pH 7.58 H POC VBG pCO2 at Temp 67.3 H* POC VBG pO2 37 POC VBG HCO3 62.6 H* POC VBG Total CO2 > 50.0 H* POC Venous O2 Sat 75.0 H POC VBG Base Excess > 30.0 H* VBG Lactic Acid 1.4 Sodium Potassium Chloride Carbon Dioxide Anion Gap BUN Creatinine GFR Calculation Glucose Calcium Total Bilirubin Direct Bilirubin AST ALT Alkaline Phosphatase Total Protein Albumin Globulin Albumin/Globulin Ratio Lipase Pertinent ROS: As per ED which was reviewed. N/V x 4 days Refractory to home Rx No fever No family contacts sick Typical presentation as previously x 4 or 5 times with SCr going to >5 before improvement with usual therapy...never required HD No Kussmal respiration but still vomiting in ED Denies THK or [place] 9 THC use lately Additional PMFSH (Level 3 Only): See my prior notes Constitutional Vitals: Vital Signs Temp Pulse Resp BP Pulse Ox O2 Del Method O2 Flow Rate 36.3 C 95 H 13 169/93 98 1 05/18/22 09:37 05/18/22 12:03 05/18/22 12:03 05/18/22 11:01 05/18/22 12:03 05/18/22 11:36 05/18/22 11:36 Period Temp Pulse Resp BP Sys/Menard Pulse Ox O2 Del Method O2 Flow Rate Last 24 Hr 36.3 C 90-106 13-22 117-183/91-107 72-100 Nasal Cannula-Room Air 1-2 Intake and Output 05/17/22 05/18/22 05/18/22 21:59 05:59 13:59 Intake Total 1000 Balance 1000 Weight 58.967 kg Patient Weight 05/19/22 05:59 Weight 58.967 kg Intake & Output: Intake & Output 05/17/22 05/18/22 05/18/22 21:59 05:59 13:59 Intake Total 1000 Balance 1000 Weight 58.967 kg Intake: IV 1000 Lactated Ringers 1,000 ml @ 1000 Wide Open IV BOLUS ONE Rx#: [id number] General appearance: disheveled, mild distress and thin Head Head exam: Present normal inspection Eye Eye exam: Present EOMI and PERRL; Absent conjunctival injection or scleral icterus Pupils: Present PERRL ENT ENT exam: Present mucous membranes dry Neck Neck exam: Present normal inspection; Absent meningismus Respiratory Respiratory exam: Absent rales, rhonchi or wheezes Cardiovascular Cardiovascular exam: Present normal rate and rhythm, +S1, +S2, systolic murmur (3/6 KAL) and tachycardia; Absent JVD GI/Abdominal GI/Abdominal exam: Present soft and hyperactive bowel sounds; Absent tenderness Additional comments: No CVAT Neurological Exam Neurological exam: Present alert (sleepy but coherent) and CN II-XII intact Psychiatric Psychiatric exam: Present flat affect and normal mood Skin Skin exam: Present dry and warm Additional comments: [place] Additional findings Additional findings: Activly vomiting A/P Assessment and plan (1) Intractable cyclical vomiting with nausea: Assessment and plan: As seen many times in the past Carries Dx of Diabetic gastroparesis but I think there is a good chance og Cannibis Vomiting Syndrome Hydrate, NPO, and replace electrolytes Plan: 1. Hydrate with at least 3 liters of Crystalloid 2. Check urine THC which is usually an issue though he states no THC etc recently Status: Acute Comment: As above (2) Controlled type 1 diabetes mellitus with chronic kidney disease: Plan: Nothing to suggest DKA at this time Status: Chronic Comment: Ketosis prone but doing better with CGM and insulin pump. Qualifiers: Chronic kidney disease stage: stage 3 (moderate) Qualified Code(s): E10.22 - Type 1 diabetes mellitus with diabetic chronic kidney disease; N18.30 - Chronic kidney disease, stage 3 unspecified (3) CKD stage G3b/A3, GFR 30-44 and albumin creatinine ratio >300 mg/g: Plan: Hold RASSI therapy Hydrate Replace K cautiously Should return to baseline GFR in 24-72 hours Status: Acute (4) Renal failure (ARF), acute on chronic: Assessment and plan: In the past and currently, I believe this to be a volume responsing disorder ( pre-renal Azotemia on CKD 3b/A3 from DM No indication for HD Hydrate and hold RASSI therapy Plan: As above Status: Acute (5) Metabolic alkalosis: Assessment and plan: Acute HCl loss with vomiting and Volume contraction alkalosis Hydrate with NS plus K or the Ringers Lactate with KCl. Watch K level as this will rise as alkalosis decreases. Status: Acute Sepsis Sepsis Identified: No Time Spent With Patient Time: Total time spent is greater than 50% in coordination of care (as documented) at patient's floor/unit and/or counseling patient: Total time spent with greater than 50% in coordination of care (as documented) at patient's floor/unit and/or counseling patient:: 35 - 50 minutes Critical Care Time: No
--- NOTE | 2022-05-18 12:39 | XRay Report ---
CLINICAL INFORMATION: Hypoxia COMPARISON: 03/13/2022 TECHNIQUE: Portable FINDINGS: Right subclavian Port-A-Cath in stable satisfactory position. The heart size, mediastinum and pulmonary vessels are unremarkable. The lungs are clear. There are no effusions. The bones and soft tissues are within normal limits. IMPRESSION: Normal chest. Interpreted and Authenticated by: Demetrius Smart 05/18/22
[2022-05-18] MEDS ORDERED: PROMETHAZINE 25 MG/ML VIAL IV ONE (13:04)
--- NOTE | 2022-05-18 13:52 | Internal Med History&Physical ---
HPI History of Present Illness Patient information: Note initiated : 05/18/22 at 1:45 pm Service Date, if different from initiated Date: [] Patient: Mauri Levine a 36 y/o M admitted on for vomiting, dehydration. Chief Complaint: [] History of present illness: Mr. Levine is a 36 year old M Presents the ED with 3 days of nausea vomiting. Patient has history of diabetes with DKA and also history of gastroparesis and nausea vomiting frequent the ED and has many hospitalizations. He usually takes Zofran on a regular basis but this time did not control it. In the ED is found to have an alkalosis and case was discussed with Dr. Mills. Patient found to likely have a contraction alkalosis and given IV fluids in the ED. Patient states he responds well typically to promethazine and Phenergan. His creatinine was 5 in the ED. Vital signs were stable other than a mildly tachycardic heart rate and elevated blood pressure. Chest x-ray was unremarkable. Bicarb is 46 and potassium 2.9. Chloride 70. Patient denies fever chills chest pain stomach pain diarrhea constipation Review of Systems: Pertinent positives as above. Denies headache/fever/chills/chest or abdominal pain/cough/dyspnea/diarrhea. Remaining 10 point review of system reviewed negative PFSH PFSH All Active Problems (Updated 05/18/22 @ 15:40 by Ab Mittal MD) Testosterone deficiency (Chronic) Nausea and vomiting (Chronic) GERD (gastroesophageal reflux disease) (Chronic) Other hammer toe(s) (acquired), left foot (Chronic) Hypertension, essential (Chronic) Hyperlipidemia (Chronic) History of neuroleptic malignant syndrome (Chronic) Dehydration (Chronic) Drug-induced nausea and vomiting (Acute) Uncontrolled type 1 diabetes mellitus with diabetic nephropathy, with long-term current use of insulin (Chronic) Cyclic vomiting syndrome (Chronic) Type 1 diabetes mellitus with stage 3 chronic kidney disease and hypertension (Chronic) Marijuana use, continuous (Chronic) CKD (chronic kidney disease) (Acute) Nephrotic range proteinuria (Chronic) Controlled type 1 diabetes mellitus with chronic kidney disease (Chronic) Port-A-Cath in place (Acute) Diabetic gastroparesis associated with type 1 diabetes mellitus (Chronic) Diabetic neuropathy associated with type 1 diabetes mellitus (Chronic) Diabetic retinopathy associated with type 1 diabetes mellitus (Chronic) Anxiety (Chronic) Back pain (Chronic) Physical deconditioning (Chronic) Malnutrition (Chronic) Acute dehydration (Acute) Acute hypokalemia (Acute) QT prolongation (Acute) Dehydration (Acute) No-show for appointment (Acute) Intractable cyclical vomiting with nausea (Acute) Diabetic gastroparesis (Chronic) ROSALIO (acute kidney injury) (Acute) Hyperglycemia (Acute) Dehydration (Acute) Major depressive disorder, recurrent (Chronic) Generalized anxiety disorder (Chronic) Trauma and stressor-related disorder (Chronic) Diabetic gastroparesis (Acute) Nausea & vomiting (Acute) Acute dehydration (Acute) Ketosis (Acute) Uncontrolled diabetes mellitus (Acute) DKA (diabetic ketoacidosis) (Acute) Hyperosmolar hyperglycemic state (HHS) (Acute) Diabetic gastroparesis (Acute) Metabolic alkalosis (Acute) Stage 2 acute kidney injury (Acute) Hyponatremia (Acute) DKA (diabetic ketoacidosis) (Acute) Has multiple sexual partners (Acute) Hyperosmolar hyperglycemic state (HHS) (Acute) Acute hypokalemia (Acute) ROSALIO (acute kidney injury) (Acute) Nausea & vomiting (Acute) Hypochloremia (Acute) Alkalosis (Acute) Acute renal failure superimposed on stage 3a chronic kidney disease (Acute) Metabolic alkalosis (Acute) Altered mental status (Acute) Depression (Acute) Acute hyperglycemia (Acute) Nausea & vomiting (Acute) Seizures (Acute) Abnormal CT of brain (Acute) Sepsis (Acute) Hyponatremia (Acute) Pneumonia (Acute) Acute renal failure (Acute) Hypokalemia (Acute) Diabetic gastroparesis (Acute) Diabetic gastroparesis (Acute) CKD stage G3b/A3, GFR 30-44 and albumin creatinine ratio >300 mg/g (Acute) Renal failure (ARF), acute on chronic (Acute) ROSALIO (acute kidney injury) (Acute) Acute hypokalemia (Acute) Medical History Abdominal pain, epigastric Abnormal CT of brain Altered mental status Anxiety Back pain Chronic ulcer of left foot Coffee ground emesis Depression Diabetes mellitus type I Age 12, With foot ulcer Diabetic gastroparesis associated with type 1 diabetes mellitus Diabetic neuropathy associated with type 1 diabetes mellitus Diabetic peripheral neuropathy Diabetic retinopathy associated with type 1 diabetes mellitus DKA, type 1 Esophageal candidiasis Gastroenteritis Gastroparesis due to DM GERD (gastroesophageal reflux disease) Hallux valgus (acquired), left foot Has multiple sexual partners History of neuroleptic malignant syndrome To compazine (prochlorperazine). Tolerates promethazine without issue Hyperlipidemia Hypertension, essential labile due to unpredictable Rx absorption with gastroparesis and propensity for dehydration Holds lisinopril if persistent vomiting occurs Hypokalemia [place] tear Malnutrition Marijuana use, continuous Nausea and vomiting Non-pressure chronic ulcer of other part of left foot limited to breakdown of skin Other hammer toe(s) (acquired), left foot Peripheral autonomic neuropathy due to DM Physical deconditioning Seizures Sepsis Tardive dyskinesia due to metoclopramide (Reglan) Testosterone deficiency Surgical History History of hand surgery Finger repair History of toe surgery left hallux Family History Mother Atrial fibrillation Essential hypertension Sister Malignant neoplasm of female breast Maternal Grandfather Malignant neoplasm of colon Recorded 11/12/10 Father Essential hypertension Other Adopted DKA, type 1 Social History adopted: Yes household members: family housing: other details: 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 marital status: single occupational status: disabled occupation: On disability since 2016 physical activity: walking smoking status: Former smoker quit date: 02/12/11 alcohol intake frequency: former alcohol drinker substance use type: former substance user seatbelt use: always MEDS/ALLERGIES Home Medications and Allergies Home Medications Medication Instructions Recorded Confirmed Type Dexcom sensor & monitor #1 cecilia 08/27/21 05/18/22 Rx acetone (urine) test (Ketone Urine #100 ea 09/10/21 05/18/22 Rx Test strips) blood sugar diagnostic (Blood #500 ea 09/10/21 05/18/22 Rx Glucose Test strips) blood-glucose meter #1 ea 09/10/21 05/18/22 Rx lancets #500 ea 09/10/21 05/18/22 Rx insulin aspart U-100 100 unit/mL See Rx Instructions subcut TID #60 01/12/22 05/18/22 Rx subcutaneous solution (Novolog mL U-100 Insulin aspart) insulin syringes (disposable) 1 mL #500 ea 01/12/22 05/18/22 Rx venlafaxine 75 mg capsule,extended 225 mg PO QAM #90 caps 03/09/22 05/18/22 Rx release 24 hr mirtazapine 15 mg disintegrating 15 mg PO HS #90 tabs 03/11/22 05/18/22 Rx tablet promethazine 25 mg rectal 25 mg HI Q6H PRN nausea and 04/09/22 05/18/22 Rx suppository (Promethegan) vomiting #12 ea captopril 12.5 mg tablet 12.5 mg PO TID ckd, HTN, DM #90 04/20/22 05/18/22 Rx tabs glucagon 3 mg/actuation nasal 3 mg intranasal ONCE PRN 04/20/22 05/18/22 Rx spray (Baqsimi) hypoglycemia #1 ea ondansetron 4 mg disintegrating 4 mg PO Q8H cyclic vomiting #120 04/21/22 05/18/22 Rx tablet tabs clonidine 0.2 mg/24 hr weekly 1 patch transdermal QWEEK #4 ea 04/26/22 05/18/22 Rx transdermal patch sucralfate 1 gram tablet (Carafate) 1 g PO BID #70 tabs 04/28/22 05/18/22 Rx fluoxetine 20 mg capsule 20 mg PO QDAY #90 caps 05/04/22 05/18/22 Rx famotidine 20 mg tablet 10 mg PO BID #90 tabs 05/12/22 05/18/22 Rx carvedilol 6.25 mg tablet 1 tab PO BID 05/18/22 05/18/22 History Allergies Allergy/AdvReac Type Severity Reaction Status Date / Time NSAIDS (Non-Steroidal Allergy Unknown Unknown Verified 05/18/22 15:30 Anti-Inflamma metoclopramide [From Reglan] AdvReac Mild Agitated Verified 05/18/22 09:40 prochlorperazine AdvReac Mild "My whole Verified 05/18/22 09:40 [From Compazine] body freaks out." silver AdvReac Mild dystonic Verified 05/18/22 09:40 IV iodine contrast Allergy Unknown Unknown Uncoded 04/20/22 14:08 EXAM Constitutional Vitals: Temp Pulse Resp BP Pulse Ox O2 Del Method O2 Flow Rate 97.3 F 95 H 20 176/102 100 1 05/18/22 09:37 05/18/22 13:00 05/18/22 13:00 05/18/22 13:00 05/18/22 13:00 05/18/22 11:36 05/18/22 11:36 Exam: General:Awake, no acute distress Eyes/N/T: EOMI, PERRL, dry MM Head/Neck: neck supple, normocephalic atraumatic CV: Mildly tacky but regular, 2/6 SM, normal s1/s2 Pulm: Clear b/l, no wheezing/rhonchi/rales Abd: soft, nontender, +BS x4 Ext: no clubbing/cyanosis/edema Neuro: Alert, no focal deficits, moves all extremities, CN 2-12 grossly intact, sensations intact b/l upper/lower Skin: warm/dry DATA Data Completed and Pending Labs: Labs from last 24 hours 05/18/22 05/18/22 05/18/22 11:37 11:20 10:14 WBC RBC Hgb Hct MCV MCH MCHC RDW Plt Count MPV Immature Gran % (Auto) Neut % (Auto) Lymph % (Auto) [place] % (Auto) Eos % (Auto) Baso % (Auto) Lymph # (Auto) [place] # (Auto) Eos # (Auto) Baso # (Auto) Immature Gran # Absolute Neutrophils POC VBG pH 7.58 H POC VBG pCO2 at Temp 67.3 H* POC VBG pO2 37 POC VBG HCO3 62.6 H* POC VBG Total CO2 > 50.0 H* POC Venous O2 Sat 75.0 H POC VBG Base Excess > 30.0 H* VBG Lactic Acid 1.4 Sodium 139 Potassium 2.9 L* Chloride 70 L Carbon Dioxide 46 H* Anion Gap 23.0 H BUN 61 H Creatinine 5.0 H* GFR Calculation 14 Glucose 157 H Calcium 10.2 Total Bilirubin 0.2 Direct Bilirubin AST 17 ALT 13 Alkaline Phosphatase 191 H Total Protein 8.4 Albumin 4.7 Globulin 3.7 Albumin/Globulin Ratio 1.3 Lipase Procalcitonin 1.36 H 05/18/22 05/18/22 09:58 09:47 WBC 13.9 H RBC 5.33 Hgb 14.2 Hct 43.2 MCV 81.1 MCH 26.6 MCHC 32.9 RDW 15.2 H Plt Count 401 MPV 11.4 Immature Gran % (Auto) 0.4 Neut % (Auto) 75.7 Lymph % (Auto) 13.4 L [place] % (Auto) 10.1 Eos % (Auto) 0 Baso % (Auto) 0.4 Lymph # (Auto) 1.86 [place] # (Auto) 1.40 H Eos # (Auto) 0 Baso # (Auto) 0.06 Immature Gran # 0.05 Absolute Neutrophils 10.53 H POC VBG pH POC VBG pCO2 at Temp POC VBG pO2 POC VBG HCO3 POC VBG Total CO2 POC Venous O2 Sat POC VBG Base Excess VBG Lactic Acid Sodium Potassium Chloride Carbon Dioxide Anion Gap BUN Creatinine GFR Calculation Glucose Calcium Total Bilirubin 0.2 Direct Bilirubin < 0.2 AST 18 ALT 13 Alkaline Phosphatase 185 H Total Protein 9.1 H Albumin 4.4 Globulin 4.7 H Albumin/Globulin Ratio Lipase 20 Procalcitonin A/P Narrative A/P Narrative: A: *HHS-DKA severe (*DMI with Gastroparesis/Neuropathy): -A1c *ROSALIO on CKD IV: Follows with Dr. Mills *Contraction alkalosis: *Volume depletion: *Electrolyte d/o (hypokalemia/hypochloremia): *DMI with Gastroparesis/Neuropathy: *Anemia, chronic: *HTN: On coreg/clonidine/captopril *Anxiety/depression: on Fluoxetine *Long QT Syndrome: noted on EKG's since 2019. Pt is on SSRI *GERD: *long-term prognosis guarded if he doesn't become more vigilant in caring for his disease -this is 10th ED visit this year and 6th admission for same issue. P: -IVF -Nephrology following -cont insulin pump -Monitor electrolytes and replace -f/u blood gas -clear liquids when patient is tolerant and advance diet as able to gastroparesis diet (low fat, soluble fiber) -will try Antiemetics that won't prolong QT (Scopolamine,Benzodiazepines) -cont clonidine/BB, restart ACEI once renal fxn at baseline, IV prn BP meds -Home medication reconciliation -ppx: Heparin/H2 Time Spent With Patient Time: Total time spent is greater than 50% in coordination of care (as documented) at patient's floor/unit and/or counseling patient: Total time spent with greater than 50% in coordination of care (as documented) at patient's floor/unit and/or counseling patient:: Greater than 70 minutes
[2022-05-18] MEDS ORDERED: 0.9 % SODIUM CHLORIDE 1,000 ML IV ONE (15:06)
[2022-05-18] MEDS ORDERED: MAGNESIUM SULFATE 2 GM/50 ML BAG IV PRN (15:06)
[2022-05-18] MEDS ORDERED: POTASSIUM CHLORIDE 40 MEQ in DEXTROSE 5% IN WATER 500 ML IV PRN (15:06)
[2022-05-18] MEDS ORDERED: SCOPOLAMINE 1 PATCH PATCH TOPICAL SCH (15:06)
[2022-05-18] MEDS ORDERED: LORazepam 2 MG/ML VIAL IV PRN (15:06)
[2022-05-18] MEDS ORDERED: POLYETHYLENE GLYCOL 3350 17 GM PACKET PO PRN (15:06)
[2022-05-18] MEDS ORDERED: SENNOSIDES 1 TABLET PO PRN (15:06)
[2022-05-18] MEDS ORDERED: POTASSIUM CHLORIDE 20 MEQ TABLET PO PRN ×2 (15:06)
[2022-05-18] MEDS ORDERED: ONDANSETRON 4 MG/2 ML VIAL IV PRN (15:06)
[2022-05-18] MEDS ORDERED: ACETAMINOPHEN 325 MG TABLET PO PRN (15:06)
[2022-05-18] MEDS ORDERED: IPRATROPIUM/ALBUTEROL 3 ML AMPUL.NEB NEB PRN (15:06)
[2022-05-18] MEDS ORDERED: MAG HYDROX/AL HYDROX/SIMETH 30 ML ORAL.SUSP PO ONE (15:09)
[2022-05-18] MEDS: 0.9 % SODIUM CHLORIDE 10 ML SYRINGE IV SCH ×2 (15:11→21:59)
[2022-05-18] MEDS ORDERED: [UNRECOGNIZED DRUG - REMARK] INTRANASAL PRN (16:28)
[2022-05-18] MEDS ORDERED: cloNIDine TTS 2 1 PATCH PATCH TD ONE (16:35)
[2022-05-18] MEDS ORDERED: ONDANSETRON 4 MG ODT TABLET PO PRN (16:52)
[2022-05-18] MEDS ORDERED: PROMETHAZINE 25 MG SUPP.RECT PR PRN (16:53)
[2022-05-18 17:05] LABS: ALT/SGPT 10 U/L (<40); AST/SGOT 15 U/L (<40); Albumin 3.9 gm/dL (3.2-5.2); Albumin/Globulin Ratio 1.1 (1.0-2.3); Alkaline Phosphatase 151 U/L (39-117); Bilirubin,Direct < 0.2 mg/dL (0-0.3); Bilirubin,Total 0.3 mg/dL (0.1-1.0); Blood Urea Nitrogen 62 mg/dL (6-20); Calcium 9.6 mg/dL (8.6-10.4); Carbon Dioxide 46 mmol/L (22-30); Chloride 80 mmol/L (96-108); Globulin 3.6 gm/dL (2.2-3.7); Glomerular Filtration Rate 16; Glucose 181 mg/dL (70-105); Lactate Dehydrogenase 248 U/L (135-225); Phosphorous 4.6 mg/dL (2.5-4.5); Triglycerides 101 mg/dL (<150)
[2022-05-18] MEDS: CARVEDILOL 6.25 MG TABLET PO SCH (17:09)
[2022-05-18] MEDS ORDERED: POTASSIUM CHLORIDE 20 MEQ in DEXTROSE 5% IN WATER 250 ML IV ONE (17:17)
[2022-05-18] MEDS: INSULIN LISPRO 1 UNIT/0.01 ML UNIT SQ SCH (17:34)
[2022-05-18] MEDS ORDERED: CAPTOPRIL 12.5 MG TABLET PO SCH (21:00)
[2022-05-18] MEDS: DOCUSATE SODIUM 100 MG CAPSULE PO SCH (21:55)
[2022-05-18] MEDS: CAPTOPRIL 12.5 MG TABLET PO SCH (21:55)
[2022-05-18] MEDS: HEPARIN 5,000 UNIT/ML VIAL SQ SCH (21:55)
[2022-05-18] MEDS: SUCRALFATE 1 GM TABLET PO SCH (21:55)
[2022-05-18] MEDS: FAMOTIDINE 20 MG TABLET PO SCH ×2 (21:56→21:59)
[2022-05-18] MEDS: MIRTAZAPINE 15 MG TABLET PO SCH (21:56)
[2022-05-19] MEDS: hydrALAZINE 20 MG/ML VIAL IV PRN ×3 (02:39→12:15)
[2022-05-19] MEDS: 0.9 % SODIUM CHLORIDE 10 ML SYRINGE IV SCH ×4 (05:58→20:46)
[2022-05-19 06:14] LABS: ABG Methemoglobin 0.1 % (0.4-1.5); Total Hemoglobin 12.9 gm/Dl (13.5-16.5); VBG Base Excess 16 (-2-3); VBG HCO3 39.5 mmol/L (24.0-28.0); VBG Oxygen Saturation 93.1 % (40.0-70.0); VBG PCO2 44.2 mmHg (41.0-51.0); VBG PH 7.57 U (7.32-7.42); VBG PO2 105.8 mmHg (25.0-40.0); VBG Total CO2 40.9 mmol/L (25.0-29.0)
[2022-05-19 06:39] LABS: Basophils # (Auto) 0.04 K/mcL (0.00-0.30); Basophils % (Auto) 0.6 % (0.0-2.0); Eosinophils # (Auto) 0.02 K/mcL (0.00-0.70); Eosinophils % (Auto) 0.3 % (0.0-7.0); Hematocrit 36.1 % (40.1-51.0); Hemoglobin 11.4 g/dL (13.7-17.5); Lymphocytes # (Auto) 1.79 K/mcL (1.50-4.80); Lymphocytes % (Auto) 24.8 % (15.5-49.0); Mean Corpuscular HGB Conc 31.6 g/dL (31.0-36.0); Mean Platelet Volume 11.6 fL (8.8-12.5); Monocytes # (Auto) 0.75 K/mcL (0.10-0.90); Monocytes % (Auto) 10.4 % (1.0-12.0); Neutrophils % (Auto) 63.8 % (38.0-78.0); Platelet Count 307 K/mcL (140-440); Red Cell Distribution Width 15.1 % (11.5-14.5); WBC 7.2 K/mcL (4.5-11.0)
[2022-05-19 07:34] LABS: ALT/SGPT 10 U/L (<40); AST/SGOT 14 U/L (<40); Albumin 3.4 gm/dL (3.2-5.2); Albumin/Globulin Ratio 1.1 (1.0-2.3); Alkaline Phosphatase 129 U/L (39-117); Bilirubin,Direct < 0.2 mg/dL (0-0.3); Bilirubin,Total 0.3 mg/dL (0.1-1.0); Blood Urea Nitrogen 49 mg/dL (6-20); Calcium 9.3 mg/dL (8.6-10.4); Carbon Dioxide 38 mmol/L (22-30); Chloride 91 mmol/L (96-108); Globulin 3.2 gm/dL (2.2-3.7); Glomerular Filtration Rate 20; Glucose 130 mg/dL (70-105); Lactate Dehydrogenase 193 U/L (135-225); Phosphorous 2.9 mg/dL (2.5-4.5); Triglycerides 105 mg/dL (<150); Uric Acid 8.2 mg/dL (2.5-8.0)
[2022-05-19] MEDS: CAPTOPRIL 12.5 MG TABLET PO SCH ×2 (08:13→16:59)
[2022-05-19] MEDS: HEPARIN 5,000 UNIT/ML VIAL SQ SCH ×2 (08:21→20:45)
[2022-05-19] MEDS: CARVEDILOL 6.25 MG TABLET PO SCH ×2 (08:21→17:54)
[2022-05-19] MEDS: FLUoxetine HCL 20 MG CAPSULE PO SCH (08:21)
[2022-05-19] MEDS: FAMOTIDINE 20 MG TABLET PO SCH ×3 (08:21→20:45)
[2022-05-19] MEDS: DOCUSATE SODIUM 100 MG CAPSULE PO SCH ×2 (08:21→20:45)
[2022-05-19] MEDS: VENLAFAXINE 75 MG CAP.XL.24H PO SCH (08:21)
--- NOTE | 2022-05-19 08:33 | Internal Med Progress Note ---
SUBJECTIVE Subjective Patient information: Note initiated : 05/19/22 at 8:31 am Service Date, if different from initiated Date: [] Patient: Mauri Levine a 36 y/o M admitted on 05/18/22 for vomiting,dehydration- ROSALIO,Alkalosis. Chief Complaint: [] Principal diagnosis: ARF Interval history: History of present illness: Mr. Levine is a 36 year old M Presents the ED with 3 days of nausea vomiting. Patient has history of diabetes with DKA and also history of gastroparesis and nausea vomiting frequent the ED and has many hospitalizations. He usually takes Zofran on a regular basis but this time did not control it. In the ED is found to have an alkalosis and case was discussed with Dr. Mills. Patient found to likely have a contraction alkalosis and given IV fluids in the ED. Patient states he responds well typically to promethazine and Phenergan. His creatinine was 5 in the ED. Vital signs were stable other than a mildly tachycardic heart rate and elevated blood pressure. Chest x-ray was unremarkable. Bicarb is 46 and potassium 2.9. Chloride 70. Patient denies fever chills chest pain stomach pain diarrhea constipation 05/19 Patient feeling better. Minimal nausea. No vomiting today. Hypokalemia noted. Creatinine slowly improving. Still alkalotic. Continue IV fluid. Monitor electrolytes and acid-base. Appreciate nephrology comanagement. Review of Systems: denies headache/fever/chills/chest or abdominal pain/cough/dyspnea/diarrhea. Otherwise see above. Constitutional Vitals: Vital Signs Temp Pulse Resp BP Pulse Ox O2 Del Method O2 Flow Rate 97.7 F 90 16 171/114 99 2 05/19/22 08:00 05/19/22 08:00 05/19/22 08:00 05/19/22 08:00 05/19/22 08:00 05/19/22 08:00 05/19/22 06:00 Period Temp Pulse Resp BP Sys/Menard Pulse Ox O2 Del Method O2 Flow Rate Last 24 Hr 97.3 F-98.7 F 67-106 13-23 111-193/71-114 72-100 Nasal Cannula-Room Air 0-2 Intake and Output 05/18/22 05/19/22 05/19/22 21:59 05:59 13:59 Intake Total 3245 Output Total 965 1000 Balance 2280 -1000 Weight 68.583 kg Intake & Output: Intake & Output 05/18/22 05/19/22 05/19/22 21:59 05:59 13:59 Intake Total 3245 Output Total 965 1000 Balance 2280 -1000 Weight 68.583 kg Intake: IV 1520 Lactated Ringers 1,000 ml @ 1000 Wide Open IV BOLUS ONE Rx#: [id number] Potassium Chloride 40 Meq In 520 Dextrose 5% in Water 500 ml @ 130 mls/hr IV ONCE ONE Rx#: [id number] Oral 1725 Output: Void Amount 965 1000 Other: Meal Dinner Percent of Meal Consumed 100% Feeding Ability Independent Urine Appearance Clear Clear Urine Color Yellow Yellow Pale # Bowel Movements 0 Exam: General:Awake, no acute distress Eyes/N/T: EOMI, Head/Neck: neck supple, CV: RRR, 2/6 SM, Pulm: Clear b/l, no wheezing/rhonchi/rales Abd: soft, nontender, +BS x4 Ext: no clubbing/cyanosis/edema Neuro: Alert, no focal deficits, moves all extremities, Skin: warm/dry OBJ DATA Labs CBC & Chem 7: 05/19/22 05:46 05/19/22 05:46 Labs: Abnormal Lab Results 05/19/22 05/19/22 05/19/22 05:47 05:46 05:46 WBC RBC 4.30 L Hgb 11.4 L Hct 36.1 L RDW 15.1 H Lymph % (Auto) [place] # (Auto) Absolute Neutrophils ABG Methemoglobin 0.1 L VBG pH 7.57 H POC VBG pH POC VBG pCO2 at Temp VBG pO2 105.8 H VBG HCO3 39.5 H POC VBG HCO3 VBG Total CO2 40.9 H POC VBG Total CO2 VBG O2 Saturation 93.1 H POC Venous O2 Sat VBG Base Excess 16 H POC VBG Base Excess Carboxyhemoglobin 4.8 H Total Hemoglobin 12.9 L Potassium 2.8 L* Chloride 91 L Carbon Dioxide 38 H Anion Gap BUN 49 H Creatinine 3.7 H Glucose 130 H Uric Acid 8.2 H Phosphorus Magnesium 2.7 H Alkaline Phosphatase 129 H Lactate Dehydrogenase Total Protein Globulin Procalcitonin U Marijuana (THC) Screen 05/18/22 05/18/22 05/18/22 21:05 15:18 11:37 WBC RBC Hgb Hct RDW Lymph % (Auto) [place] # (Auto) Absolute Neutrophils ABG Methemoglobin VBG pH POC VBG pH 7.58 H POC VBG pCO2 at Temp 67.3 H* VBG pO2 VBG HCO3 POC VBG HCO3 62.6 H* VBG Total CO2 POC VBG Total CO2 > 50.0 H* VBG O2 Saturation POC Venous O2 Sat 75.0 H VBG Base Excess POC VBG Base Excess > 30.0 H* Carboxyhemoglobin Total Hemoglobin Potassium 3.0 L Chloride 80 L Carbon Dioxide 46 H* Anion Gap BUN 62 H Creatinine 4.4 H Glucose 181 H Uric Acid 9.0 H Phosphorus 4.6 H Magnesium 3.0 H Alkaline Phosphatase 151 H Lactate Dehydrogenase 248 H Total Protein Globulin Procalcitonin U Marijuana (THC) Screen Suspect positive A 05/18/22 05/18/22 05/18/22 11:20 10:14 09:58 WBC 13.9 H RBC Hgb Hct RDW 15.2 H Lymph % (Auto) 13.4 L [place] # (Auto) 1.40 H Absolute Neutrophils 10.53 H ABG Methemoglobin VBG pH POC VBG pH POC VBG pCO2 at Temp VBG pO2 VBG HCO3 POC VBG HCO3 VBG Total CO2 POC VBG Total CO2 VBG O2 Saturation POC Venous O2 Sat VBG Base Excess POC VBG Base Excess Carboxyhemoglobin Total Hemoglobin Potassium 2.9 L* Chloride 70 L Carbon Dioxide 46 H* Anion Gap 23.0 H BUN 61 H Creatinine 5.0 H* Glucose 157 H Uric Acid Phosphorus Magnesium Alkaline Phosphatase 191 H Lactate Dehydrogenase Total Protein Globulin Procalcitonin 1.36 H U Marijuana (THC) Screen 05/18/22 09:47 WBC RBC Hgb Hct RDW Lymph % (Auto) [place] # (Auto) Absolute Neutrophils ABG Methemoglobin VBG pH POC VBG pH POC VBG pCO2 at Temp VBG pO2 VBG HCO3 POC VBG HCO3 VBG Total CO2 POC VBG Total CO2 VBG O2 Saturation POC Venous O2 Sat VBG Base Excess POC VBG Base Excess Carboxyhemoglobin Total Hemoglobin Potassium Chloride Carbon Dioxide Anion Gap BUN Creatinine Glucose Uric Acid Phosphorus Magnesium Alkaline Phosphatase 185 H Lactate Dehydrogenase Total Protein 9.1 H Globulin 4.7 H Procalcitonin U Marijuana (THC) Screen Meds: Medications Acetaminophen (Acetaminophen 325 Mg Tablet) 650 mg PO Q6HP PRN; Protocol PRN Reason: Per Pain Protocol/Fever > 101 Albuterol/Ipratropium (Ipratropium/Albuterol 3 Ml Ampul.Neb) 3 ml NEB Q4HP PRN PRN Reason: Shortness Of Breath Captopril (Captopril 12.5 Mg Tablet) 12.5 mg PO TID [facility] Last Admin: 05/19/22 08:13 Dose: Not Given Carvedilol (Carvedilol 6.25 Mg Tablet) 6.25 mg PO BIDCC [facility] Last Admin: 05/19/22 08:21 Dose: 6.25 mg Clonidine HCl (Clonidine Tts 2 1 Patch Patch) 1 patch TD QWEEK [facility] Docusate Sodium (Docusate Sodium 100 Mg Capsule) 100 mg PO BID [facility] Last Admin: 05/19/22 08:21 Dose: 100 mg Famotidine (Famotidine 20 Mg Tablet) 20 mg PO [facility] Last Admin: 05/18/22 21:56 Dose: 20 mg Famotidine (Famotidine 20 Mg Tablet) 10 mg PO BID [facility] Last Admin: 05/19/22 08:21 Dose: 10 mg Fluoxetine HCl (Fluoxetine Hcl 20 Mg Capsule) 20 mg PO QDAY [facility] Last Admin: 05/19/22 08:21 Dose: 20 mg Heparin Sodium (Porcine) (Heparin 5,000 Unit/Ml Vial) 5,000 unit SQ Q12 [facility] Last Admin: 05/19/22 08:21 Dose: 5,000 unit Hydralazine HCl (Hydralazine 20 Mg/Ml Vial) 0 mg IV Q2HP PRN PRN Reason: Hypertension Last Admin: 05/19/22 02:39 Dose: 20 mg Potassium Chloride 40 meq/ (Dextrose) 520 mls @ 130 mls/hr IV UD PRN PRN Reason: Potassium < 3 Magnesium Sulfate (Magnesium Sulfate) 2 gm in 50 mls @ 50 mls/hr IV UD PRN PRN Reason: Magnesium </= 1.6 Insulin Human Lispro (Insulin Lispro 1 Unit/0.01 Ml Unit) 0 unit SQ TIDAC [facility]; Protocol Last Admin: 05/18/22 17:34 Dose: Not Given Lorazepam (Lorazepam 2 Mg/Ml Vial) 0.5 mg IV Q4-6HP PRN PRN Reason: Anxiety/Sedation & NAUSEA/VOMI Mirtazapine (Mirtazapine 15 Mg Tablet) 15 mg PO HS [facility] Last Admin: 05/18/22 21:56 Dose: 15 mg Ondansetron HCl (Ondansetron 4 Mg/2 Ml Vial) 4 mg IV Q4HP PRN PRN Reason: Nausea And Vomiting Ondansetron HCl (Ondansetron 4 Mg Odt Tablet) 4 mg PO Q8HP PRN PRN Reason: Nausea And Vomiting Polyethylene Glycol (Polyethylene Glycol 3350 17 Gm Packet) 17 gm PO DAILYP PRN PRN Reason: Constipation Potassium Chloride (Potassium Chloride 20 Meq Tablet) 40 meq PO UD PRN PRN Reason: Potssium is 3-3.5 Potassium Chloride (Potassium Chloride 20 Meq Tablet) 40 meq PO UD PRN PRN Reason: Potassium < 3 Promethazine HCl (Promethazine 25 Mg Supp.Rect) 25 mg TX Q6HP PRN PRN Reason: Nausea And Vomiting Scopolamine (Scopolamine 1 Patch Patch) 1 patch TOPICAL Q72H [facility] Last Admin: 05/18/22 15:17 Dose: 1 patch Senna (Sennosides 1 Tablet) 2 tab PO DAILYP PRN PRN Reason: Constipation Sodium Chloride (0.9 % Sodium Chloride 10 Ml Syringe) 10 ml IV Q8 [facility] Last Admin: 05/19/22 05:58 Dose: 10 ml Sucralfate (Sucralfate 1 Gm Tablet) 1 gm PO BID [facility] Last Admin: 05/18/22 21:55 Dose: 1 gm Venlafaxine HCl (Venlafaxine 75 Mg Cap.Xl.24h) 225 mg PO QAM [facility] Last Admin: 05/19/22 08:21 Dose: 225 mg ABG Interpretation ABG results: 05/19/22 05:47 ABG Methemoglobin 0.1 L VBG pH 7.57 H VBG pCO2 44.2 VBG pO2 105.8 H VBG HCO3 39.5 H VBG Total CO2 40.9 H VBG O2 Saturation 93.1 H VBG Base Excess 16 H A/P Narrative A/P Narrative: A: *N/V: 2/2 likely gastroparesis *ROSALIO on CKD IV: Follows with Dr. Mills -slowly improving *Contraction alkalosis: mildly improved *Volume depletion: improving *Electrolyte d/o (hypokalemia/hypochloremia): *DMI with Gastroparesis/Neuropathy: *Anemia, chronic: *HTN: On coreg/clonidine/captopril *Anxiety/depression: on Fluoxetine *Long QT Syndrome: noted on EKG's since 2019. Pt is on SSRI *GERD: P: -IVF -Nephrology following -cont insulin pump and ssi -Monitor electrolytes and replace -f/u blood gas -gastroparesis diet (low fat, soluble fiber) -will try Antiemetics that won't prolong QT (Scopolamine,Benzodiazepines) -cont clonidine/BB, ACEI per Nephro -ppx: Heparin/H2 Time Spent With Patient Time: Total time spent is greater than 50% in coordination of care (as documented) at patient's floor/unit and/or counseling patient: Total time spent with greater than 50% in coordination of care (as documented) at patient's floor/unit and/or counseling patient:: 35 - 50 minutes QUALITY VTE Deep Vein Thrombosis/Pulmonary Embolism Present on Admission: No
[2022-05-19] MEDS ORDERED: NIFEdipine 30 MG TAB.XL.24H PO SCH (09:00)
[2022-05-19] MEDS: INSULIN LISPRO 1 UNIT/0.01 ML UNIT SQ SCH ×3 (10:13→16:57)
[2022-05-19] MEDS: 0.9 % SODIUM CHLORIDE 1,000 ML IV SCH ×2 (10:14→20:39)
[2022-05-19] MEDS: SUCRALFATE 1 GM TABLET PO SCH ×2 (11:01→17:02)
[2022-05-19 12:00] LABS: Alcohol, Blood < 10.0 mg/dL; Alcohol,Blood < 0.010 gm/dL (<0.010)
--- NOTE | 2022-05-19 12:40 | Nephrology Progress Note ---
SUBJECTIVE Subjective Patient information: Note initiated : 05/19/22 at 12:35 pm Service Date, if different from initiated Date: [] Patient: Mauri Levine 36 y/o M admitted on 05/18/22 for vomiting,dehydration- ROSALIO,Alkalosis. Chief Complaint: [N/V] Principal diagnosis: ARF Interval history: Improving GFR. Blood pressure elevated with Anchen and the ability to hold down his meds Until his creatinine sinks below 3, but hold on his captopril as this will interfere with renal recovery Potassium remains low A careful look at his initial electrolyte and acid-base disturbance demonstrates a metabolic alkalosis, anion gap positive acidosis, and a respiratory acidosis. Searching for cause of his anion gap positivity which could have been unmeasured anions from renal failure such as sulfate and other anions, he is diabetic so ketosis is always a concern, lactic acid was not elevated yesterday afternoon but this was not on initial labs, nothing to suggest salicylate intoxication or methanol isopropanol or alcohol. I wonder if because of his small body mass we are underestimating his true GFR using creatinine and I guess we could try cyststatin C to calculate his GFR once his serum creatinine has leveled out. Previously he has had some radiographic evidence of gastroparesis, his last gastric emptying time was normal, and I remain suspicious of cannabinoid induced cyclic vomiting as that is the one constant in this patient (have urine screen negative for THC product). Serum Creatinine Serum K Serum CO2 Serum B-(OH) Butyrate Serum Osmolarity Calculated Osmolar Gap 9.25 Pertinent ROS: No Vomiting x >12 hr Up in bed looks good Needs non ACEi PRN Additional PMFSH (Level 3 Only): N/a Constitutional Vitals: Vital Signs Temp Pulse Resp BP Pulse Ox O2 Del Method O2 Flow Rate 36.3 C 95 H 18 173/105 95 1 05/19/22 12:00 05/19/22 08:36 05/19/22 12:00 05/19/22 12:00 05/19/22 12:00 05/19/22 12:00 05/19/22 08:36 Period Temp Pulse Resp BP Sys/Menard Pulse Ox O2 Del Method O2 Flow Rate Last 24 Hr 36.3 C-37.1 C 67-101 13-24 111-194/71-123 89-100 Nasal Cannula-Room Air 0-2 Intake and Output 05/18/22 05/19/2205/19/22 21:59 05:59 13:59 Intake Total 3245 240 Output Total 965 1000 700 Balance 2280 -1000 -460 Weight 68.583 kg Intake & Output: Intake & Output 05/18/22 05/19/22 05/19/22 21:59 05:59 13:59 Intake Total 3245 240 Output Total 965 1000 700 Balance 2280 -1000 -460 Weight 68.583 kg Intake: IV 1520 Lactated Ringers 1,000 ml @ 1000 Wide Open IV BOLUS ONE Rx#: [id number] Potassium Chloride 40 Meq In 520 Dextrose 5% in Water 500 ml @ 130 mls/hr IV ONCE ONE Rx#: [id number] Oral 1725 240 Output: Void Amount 965 1000 700 Other: Meal Dinner Percent of Meal Consumed 100% Feeding Ability Independent Urine Appearance Clear Clear Clear Urine Color Yellow Yellow Pale Pale Urine Odor Normal # Bowel Movements 0 General appearance: average body habitus and no acute distress Head Head exam: Present normal inspection Eye Eye exam: Present PERRL; Absent scleral icterus Pupils: Present PERRL ENT ENT exam: Present mucous membranes moist Neck Neck exam: Present normal inspection Respiratory Respiratory exam: Present CTAB; Absent rales Cardiovascular Cardiovascular exam: Present normal rate and rhythm and systolic murmur GI/Abdominal GI/Abdominal exam: Present normal bowel sounds and soft; Absent tenderness Neurological Exam Neurological exam: Present alert and CN II-XII intact Psychiatric Psychiatric exam: Present normal affect Skin Skin exam: Present abrasion and dry A/P Assessment and plan (1) Acid-base disorder, mixed: Assessment and plan: Triple acid base disturbance with primary metabolic alkalosis, awith anion gap acidosis, and hypercapnic respiratory acidosis. Status: Acute Comment: Not sure what the missing anion is but suspect some ketone bodies, some organic anions for decreased GFR like PO4 and SO4. Osmolar gap was <10 so ethylene glycol, MeOH and Isopropyl alcolhol are unlikely. Could check for d-Lactate with bacterial overggrowth from DM (2) ROSALIO (acute kidney injury): Assessment and plan: Pre-renal and ACEi therapy Status: Acute Comment: Improving with ECF volume expansion (3) Acute hypokalemia: Assessment and plan: Alkalosis with volume contraction => K losses as K is counter-ion for urinary excreation Alkalosis induced intracellular shift Plan: Repleate IV till ~3.5 Will be restarting Captopril soon. Status: Acute (4) CKD stage G3b/A3, GFR 30-44 and albumin creatinine ratio >300 mg/g: Plan: Short acting ACEi for DM nephropathy with nephrotic range proteinuria GFR by Cystastatin C Status: Acute (5) Intractable cyclical vomiting with nausea: Status: Acute Comment: As above. I remain suspecious of cyclic vomiting from THC use > DM gastroparesis Tie-breaking nuclear med gastric emptying time as outpatient Has GI motility specialist in [place] (6) Hypertension, essential: Assessment and plan: Holding Captopril due to ARF Plan: prn IV Labetalol prn Status: Chronic Comment: labile due to unpredictable Rx absorption with gastroparesis and propensity for dehydration Hold captopril if persistent vomiting occurs or bp less than 120/80 stop coreg and nifedipine Continue clonidine patch#1 Labetalol IV PRN Sepsis Sepsis Identified: No Narrative A/P Narrative: 1. Working up AG acidosis 2. IV labatalol PRN 3. Holding captopril 4. Need an outpatient anti-emetic program but nothing has worked over the years, could try EES 5. Check d-lactate for #1 and #4 6. Would be nice if he quit dope but this has fallen on deaf ears Plan of Treatment: As above Time Spent With Patient Time: Total time spent is greater than 50% in coordination of care (as documented) at patient's floor/unit and/or counseling patient:
--- NOTE | 2022-05-19 12:57 | EKG ---
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
[2022-05-19] MEDS ORDERED: LABETALOL 5 MG/ML ML IV PRN (13:27)
[2022-05-19] MEDS ORDERED: DEXTROSE 50% 50 ML SYRINGE IV ONE (18:30)
[2022-05-19] MEDS ORDERED: DEXTROSE 50% 50 ML VIAL IV PRN (18:35)
[2022-05-19] MEDS ORDERED: DEXTROSE 50% 50 ML SYRINGE IV PRN (19:45)
[2022-05-19] MEDS: MIRTAZAPINE 15 MG TABLET PO SCH (20:45)
[2022-05-20] MEDS: 0.9 % SODIUM CHLORIDE 10 ML SYRINGE IV SCH ×2 (05:40→10:12)
[2022-05-20 07:13] LABS: ABG Methemoglobin 0.1 % (0.4-1.5); Total Hemoglobin 12.9 gm/Dl (13.5-16.5); VBG Base Excess 8 (-2-3); VBG HCO3 29.7 mmol/L (24.0-28.0); VBG Oxygen Saturation 88.1 % (40.0-70.0); VBG PCO2 30.7 mmHg (41.0-51.0); VBG PO2 134.6 mmHg (25.0-40.0); VBG Total CO2 30.7 mmol/L (25.0-29.0)
[2022-05-20] MEDS: SUCRALFATE 1 GM TABLET PO SCH (07:38)
[2022-05-20] MEDS: CARVEDILOL 6.25 MG TABLET PO SCH (07:38)
[2022-05-20] MEDS: INSULIN LISPRO 1 UNIT/0.01 ML UNIT SQ SCH ×2 (07:47→11:39)
--- NOTE | 2022-05-20 07:57 | Internal Med Progress Note ---
SUBJECTIVE Subjective Patient information: Note initiated : 05/20/22 at 7:56 am Service Date, if different from initiated Date: [] Patient: Mauri Levine a 36 y/o M admitted on 05/18/22 for vomiting,dehydration- ROSALIO,Alkalosis. Chief Complaint: [] Principal diagnosis: ARF Interval history: History of present illness: Mr. Levine is a 36 year old M Presents the ED with 3 days of nausea vomiting. Patient has history of diabetes with DKA and also history of gastroparesis and nausea vomiting frequent the ED and has many hospitalizations. He usually takes Zofran on a regular basis but this time did not control it. In the ED is found to have an alkalosis and case was discussed with Dr. Mills. Patient found to likely have a contraction alkalosis and given IV fluids in the ED. Patient states he responds well typically to promethazine and Phenergan. His creatinine was 5 in the ED. Vital signs were stable other than a mildly tachycardic heart rate and elevated blood pressure. Chest x-ray was unremarkable. Bicarb is 46 and potassium 2.9. Chloride 70. Patient denies fever chills chest pain stomach pain diarrhea constipation 05/19 Patient feeling better. Minimal nausea. No vomiting today. Hypokalemia noted. Creatinine slowly improving. Still alkalotic. Continue IV fluid. Monitor electrolytes and acid-base. Appreciate nephrology comanagement. Review of Systems: denies headache/fever/chills/chest or abdominal pain/cough/dyspnea/diarrhea. Otherwise see above. Constitutional Vitals: Vital Signs Temp Pulse Resp BP Pulse Ox O2 Del Method O2 Flow Rate 98.1 F 82 15 136/71 99 0 05/20/22 04:31 05/20/22 06:10 05/20/22 06:00 05/20/22 06:00 05/20/22 06:10 05/20/22 01:31 05/19/22 08:36 Period Temp Pulse Resp BP Sys/Menard Pulse Ox O2 Del Method O2 Flow Rate Last 24 Hr 97 F-98.1 F 60-95 14-24 102-194/59-123 95-100 Room Air-Room Air 0-0 Intake and Output 05/19/22 05/20/22 05/20/22 21:59 05:59 13:59 Intake Total 970 2136 Output Total 1000 Balance 970 1136 Weight 71.305 kg Intake & Output: Intake & Output 05/19/22 05/20/22 05/20/22 21:59 05:59 13:59 Intake Total 970 2136 Output Total 1000 Balance 970 1136 Weight 71.305 kg Intake: IV 520 1000 Sodium Chloride 0.9% 1,000 ml @ 1000 100 mls/hr IV .Q10H KOK[facility] Rx#: [id number] Potassium Chloride 40 Meq In 520 Dextrose 5% in Water 500 ml @ 130 mls/hr IV UD PRN Rx#: [id number] Oral 450 1136 Output: Void Amount 1000 Other: Meal Dinner popsicle Percent of Meal Consumed 100% 100% Feeding Ability Independent Urine Appearance Clear Urine Color Yellow Urine Odor Normal Exam: General:Awake, no acute distress Eyes/N/T: EOMI, Head/Neck: neck supple, CV: RRR, 2/6 SM, Pulm: Clear b/l, no wheezing/rhonchi/rales Abd: soft, nontender, +BS x4 Ext: no clubbing/cyanosis/edema Neuro: Alert, no focal deficits, moves all extremities, Skin: warm/dry OBJ DATA Labs CBC & Chem 7: 05/19/22 05:46 05/20/22 06:45 Labs: Abnormal Lab Results 05/20/22 05/19/22 05/19/22 06:45 10:43 10:42 WBC RBC Hgb Hct RDW Lymph % (Auto) Mcmullen # (Auto) Absolute Neutrophils ABG Methemoglobin 0.1 L VBG pH 7.60 H POC VBG pH VBG pCO2 30.7 L POC VBG pCO2 at Temp VBG pO2 134.6 H VBG HCO3 29.7 H POC VBG HCO3 VBG Total CO2 30.7 H POC VBG Total CO2 VBG O2 Saturation 88.1 H POC Venous O2 Sat VBG Base Excess 8 H POC VBG Base Excess Carboxyhemoglobin 10.4 H Total Hemoglobin 12.9 L Potassium Chloride Carbon Dioxide Anion Gap BUN Creatinine Glucose Osmolality 308 H Uric Acid Phosphorus Magnesium Alkaline Phosphatase Lactate Dehydrogenase Total Protein Globulin Beta-Hydroxybutyrate 1.31 H Procalcitonin U Marijuana (THC) Screen 05/19/22 05/19/22 05/19/22 10:41 05:47 05:46 WBC RBC Hgb Hct RDW Lymph % (Auto) Mcmullen # (Auto) Absolute Neutrophils ABG Methemoglobin 0.1 L VBG pH 7.57 H POC VBG pH VBG pCO2 POC VBG pCO2 at Temp VBG pO2 105.8 H VBG HCO3 39.5 H POC VBG HCO3 VBG Total CO2 40.9 H POC VBG Total CO2 VBG O2 Saturation 93.1 H POC Venous O2 Sat VBG Base Excess 16 H POC VBG Base Excess Carboxyhemoglobin 4.8 H Total Hemoglobin 12.9 L Potassium 2.8 L* Chloride 91 L Carbon Dioxide 38 H Anion Gap BUN 49 H Creatinine 3.7 H Glucose 130 H Osmolality Uric Acid 8.2 H Phosphorus Magnesium 2.7 H Alkaline Phosphatase 129 H Lactate Dehydrogenase 231 H Total Protein Globulin Beta-Hydroxybutyrate Procalcitonin U Marijuana (THC) Screen 05/19/22 05/18/22 05/18/22 05:46 21:05 15:18 WBC RBC 4.30 L Hgb 11.4 L Hct 36.1 L RDW 15.1 H Lymph % (Auto) Mcmullen # (Auto) Absolute Neutrophils ABG Methemoglobin VBG pH POC VBG pH VBG pCO2 POC VBG pCO2 at Temp VBG pO2 VBG HCO3 POC VBG HCO3 VBG Total CO2 POC VBG Total CO2 VBG O2 Saturation POC Venous O2 Sat VBG Base Excess POC VBG Base Excess Carboxyhemoglobin Total Hemoglobin Potassium 3.0 L Chloride 80 L Carbon Dioxide 46 H* Anion Gap BUN 62 H Creatinine 4.4 H Glucose 181 H Osmolality Uric Acid 9.0 H Phosphorus 4.6 H Magnesium 3.0 H Alkaline Phosphatase 151 H Lactate Dehydrogenase 248 H Total Protein Globulin Beta-Hydroxybutyrate Procalcitonin U Marijuana (THC) Screen Suspect positive A 05/18/22 05/18/22 05/18/22 11:37 11:20 10:14 WBC RBC Hgb Hct RDW Lymph % (Auto) Mcmullen # (Auto) Absolute Neutrophils ABG Methemoglobin VBG pH POC VBG pH 7.58 H VBG pCO2 POC VBG pCO2 at Temp 67.3 H* VBG pO2 VBG HCO3 POC VBG HCO3 62.6 H* VBG Total CO2 POC VBG Total CO2 > 50.0 H* VBG O2 Saturation POC Venous O2 Sat 75.0 H VBG Base Excess POC VBG Base Excess > 30.0 H* Carboxyhemoglobin Total Hemoglobin Potassium 2.9 L* Chloride 70 L Carbon Dioxide 46 H* Anion Gap 23.0 H BUN 61 H Creatinine 5.0 H* Glucose 157 H Osmolality Uric Acid Phosphorus Magnesium Alkaline Phosphatase 191 H Lactate Dehydrogenase Total Protein Globulin Beta-Hydroxybutyrate Procalcitonin 1.36 H U Marijuana (THC) Screen 05/18/22 05/18/22 09:58 09:47 WBC 13.9 H RBC Hgb Hct RDW 15.2 H Lymph % (Auto) 13.4 L Mcmullen # (Auto) 1.40 H Absolute Neutrophils 10.53 H ABG Methemoglobin VBG pH POC VBG pH VBG pCO2 POC VBG pCO2 at Temp VBG pO2 VBG HCO3 POC VBG HCO3 VBG Total CO2 POC VBG Total CO2 VBG O2 Saturation POC Venous O2 Sat VBG Base Excess POC VBG Base Excess Carboxyhemoglobin Total Hemoglobin Potassium Chloride Carbon Dioxide Anion Gap BUN Creatinine Glucose Osmolality Uric Acid Phosphorus Magnesium Alkaline Phosphatase 185 H Lactate Dehydrogenase Total Protein 9.1 H Globulin 4.7 H Beta-Hydroxybutyrate Procalcitonin U Marijuana (THC) Screen Meds: Medications Acetaminophen (Acetaminophen 325 Mg Tablet) 650 mg PO Q6HP PRN; Protocol PRN Reason: Per Pain Protocol/Fever > 101 Albuterol/Ipratropium (Ipratropium/Albuterol 3 Ml Ampul.Neb) 3 ml NEB Q4HP PRN PRN Reason: Shortness Of Breath Captopril (Captopril 12.5 Mg Tablet) 12.5 mg PO TIDAC [facility] Last Admin: 05/19/22 16:59 Dose: Not Given Carvedilol (Carvedilol 6.25 Mg Tablet) 6.25 mg PO BIDCC [facility] Last Admin: 05/20/22 07:38 Dose: 6.25 mg Clonidine HCl (Clonidine Tts 2 1 Patch Patch) 1 patch TD QWEEK [facility] Dextrose (Dextrose 50% 50 Ml Syringe) 50 ml IV UD PRN PRN Reason: Hypoglycemia Diagnostic Test (Pha) (Accu-Chek 1 Each Strip) 1 each FS ACHS [facility] Last Admin: 05/20/22 07:41 Dose: 1 each Docusate Sodium (Docusate Sodium 100 Mg Capsule) 100 mg PO BID [facility] Last Admin: 05/19/22 20:45 Dose: 100 mg Famotidine (Famotidine 20 Mg Tablet) 20 mg PO HS [facility] Last Admin: 05/19/22 20:45 Dose: 20 mg Famotidine (Famotidine 20 Mg Tablet) 10 mg PO BID [facility] Last Admin: 05/19/22 20:45 Dose: 10 mg Fluoxetine HCl (Fluoxetine Hcl 20 Mg Capsule) 20 mg PO QDAY [facility] Last Admin: 05/19/22 08:21 Dose: 20 mg Heparin Sodium (Porcine) (Heparin 5,000 Unit/Ml Vial) 5,000 unit SQ Q12 [facility] Last Admin: 05/19/22 20:45 Dose: 5,000 unit Potassium Chloride 40 meq/ (Dextrose) 520 mls @ 130 mls/hr IV UD PRN PRN Reason: Potassium < 3 Last Infusion: 05/19/22 17:28 Dose: Infused Magnesium Sulfate (Magnesium Sulfate) 2 gm in 50 mls @ 50 mls/hr IV UD PRN PRN Reason: Magnesium </= 1.6 Insulin Human Lispro (Insulin Lispro 1 Unit/0.01 Ml Unit) 0 unit SQ TIDAC [facility]; Protocol Last Admin: 05/20/22 07:47 Dose: Not Given Labetalol HCl (Labetalol 5 Mg/Ml Ml) 20 mg IV Q1 PRN PRN Reason: HTN Last Admin: 05/19/22 13:38 Dose: 20 mg Lorazepam (Lorazepam 2 Mg/Ml Vial) 0.5 mg IV Q4-6HP PRN PRN Reason: Anxiety/Sedation & NAUSEA/VOMI Mirtazapine (Mirtazapine 15 Mg Tablet) 15 mg PO [facility] Last Admin: 05/19/22 20:45 Dose: 15 mg Ondansetron HCl (Ondansetron 4 Mg/2 Ml Vial) 4 mg IV Q4HP PRN PRN Reason: Nausea And Vomiting Ondansetron HCl (Ondansetron 4 Mg Odt Tablet) 4 mg PO Q8HP PRN PRN Reason: Nausea And Vomiting Polyethylene Glycol (Polyethylene Glycol 3350 17 Gm Packet) 17 gm PO DAILYP PRN PRN Reason: Constipation Potassium Chloride (Potassium Chloride 20 Meq Tablet) 40 meq PO UD PRN PRN Reason: Potssium is 3-3.5 Potassium Chloride (Potassium Chloride 20 Meq Tablet) 40 meq PO UD PRN PRN Reason: Potassium < 3 Last Admin: 05/19/22 13:38 Dose: 40 meq Promethazine HCl (Promethazine 25 Mg Supp.Rect) 25 mg FL Q6HP PRN PRN Reason: Nausea And Vomiting Scopolamine (Scopolamine 1 Patch Patch) 1 patch TOPICAL Q72H [facility] Last Admin: 05/18/22 15:17 Dose: 1 patch Senna (Sennosides 1 Tablet) 2 tab PO DAILYP PRN PRN Reason: Constipation Sodium Chloride (0.9 % Sodium Chloride 10 Ml Syringe) 10 ml IV Q8 [facility] Last Admin: 05/20/22 05:40 Dose: 10 ml Sodium Chloride (0.9 % Sodium Chloride 10 Ml Syringe) 10 ml IV Q12 [facility] Last Admin: 05/19/22 20:45 Dose: Not Given Sucralfate (Sucralfate 1 Gm Tablet) 1 gm PO BIDAC [facility] Last Admin: 05/20/22 07:38 Dose: 1 gm Venlafaxine HCl (Venlafaxine 75 Mg Cap.Xl.24h) 225 mg PO QAM [facility] Last Admin: 05/19/22 08:21 Dose: 225 mg ABG Interpretation ABG results: 05/19/22 05/20/22 05:47 06:45 ABG Methemoglobin 0.1 L 0.1 L VBG pH 7.57 H 7.60 H VBG pCO2 44.2 30.7 L VBG pO2 105.8 H 134.6 H VBG HCO3 39.5 H 29.7 H VBG Total CO2 40.9 H 30.7 H VBG O2 Saturation 93.1 H 88.1 H VBG Base Excess 16 H 8 H A/P Narrative A/P Narrative: A: *N/V: 2/2 likely gastroparesis *ROSALIO on CKD IV: Follows with Dr. Mills -slowly improving *Contraction alkalosis: mildly improved *Volume depletion: improving *Electrolyte d/o (hypokalemia/hypochloremia): improving *DMI with Gastroparesis/Neuropathy: *Anemia, chronic: *HTN: On coreg/clonidine/captopril *Anxiety/depression: on Fluoxetine *Long QT Syndrome: noted on EKG's since 2019. Pt is on SSRI *GERD: P: -s/p IVF -Nephrology following -cont insulin pump and ssi -Monitor electrolytes and replace -gastroparesis diet (low fat, soluble fiber) -will try Antiemetics that won't prolong QT (Scopolamine,Benzodiazepines) -cont clonidine/BB, ACEI per Nephro -ppx: Heparin/H2 Plan of Treatment: As above Time Spent With Patient Time: Total time spent is greater than 50% in coordination of care (as documented) at patient's floor/unit and/or counseling patient: QUALITY VTE Deep Vein Thrombosis/Pulmonary Embolism Present on Admission: No
[2022-05-20 08:02] LABS: ALT/SGPT 13 U/L (<40); AST/SGOT 15 U/L (<40); Albumin 3.3 gm/dL (3.2-5.2); Alkaline Phosphatase 122 U/L (39-117); Bilirubin,Direct < 0.2 mg/dL (0-0.3); Bilirubin,Total 0.2 mg/dL (0.1-1.0); Blood Urea Nitrogen 44 mg/dL (6-20); Calcium 8.8 mg/dL (8.6-10.4); Carbon Dioxide 30 mmol/L (22-30); Chloride 91 mmol/L (96-108); Globulin 3.2 gm/dL (2.2-3.7); Glomerular Filtration Rate 21; Glucose 136 mg/dL (70-105); Lactate Dehydrogenase 201 U/L (135-225); Phosphorous 2.3 mg/dL (2.5-4.5); Triglycerides 115 mg/dL (<150); Uric Acid 7.6 mg/dL (2.5-8.0)
[2022-05-20] MEDS: CAPTOPRIL 12.5 MG TABLET PO SCH ×2 (09:44→11:40)
[2022-05-20] MEDS: HEPARIN 5,000 UNIT/ML VIAL SQ SCH (10:07)
[2022-05-20] MEDS: VENLAFAXINE 75 MG CAP.XL.24H PO SCH (10:07)
[2022-05-20] MEDS: FAMOTIDINE 20 MG TABLET PO SCH (10:09)
[2022-05-20] MEDS: FLUoxetine HCL 20 MG CAPSULE PO SCH (10:10)
[2022-05-20] MEDS: DOCUSATE SODIUM 100 MG CAPSULE PO SCH (10:10)
--- NOTE | 2022-05-20 10:55 | Discharge Summary ---
Discharge Provider Provider IMPORTANT FOLLOW-UP INFORMATION FOR PCP: Patient information: Note initiated : 05/20/22 at 10:52 am Service Date, if different from initiated Date: [] Patient: Mauri Levine 36 y/o M admitted on 05/18/22 for vomiting,dehydration- ROSALIO,Alkalosis. Chief Complaint: [] Date of admission: 05/18/22 15:00 Discharge date: 05/20/22 Primary care physician: Flo Peña MD Consults: 05/18/22 12:15 Consult to Physician [CONS] Stat Comment: Consulting Provider: Deangelo Basilio Reason For Exam: Physician to Consult Consult to Physician [CONS] Stat Comment: Consulting Provider: Khari Mills Reason For Exam: Physician to Consult COURSE Hospital Course Hospital course: History of present illness: Mr. Levine is a 36 year old M Presents the ED with 3 days of nausea vomiting. Patient has history of diabetes with DKA and also history of gastroparesis and nausea vomiting frequent the ED and has many hospitalizations. He usually takes Zofran on a regular basis but this time did not control it. In the ED is found to have an alkalosis and case was discussed with Dr. Mills. Patient found to likely have a contraction alkalosis and given IV f luids in the ED. Patient states he responds well typically to promethazine and Phenergan. His creatinine was 5 in the ED. Vital signs were stable other than a mildly tachycardic heart rate and elevated blood pressure. Chest x-ray was unremarkable. Bicarb is 46 and potassium 2.9. Chloride 70. Patient denies fever chills chest pain stomach pain diarrhea constipation 05/19 Patient feeling better. Minimal nausea. No vomiting today. Hypokalemia noted. Creatinine slowly improving. Still alkalotic. Continue IV fluid. Monitor electrolytes and acid-base. Appreciate nephrology comanagement. 05/20 Patient feeling much better today. No nausea vomiting. Patient stable for discharge. Electrolytes and renal function improved. A: *N/V: 2/2 likely gastroparesis vs cannabis hyperemesis *ROSALIO on CKD IV: Follows with Dr. Mills *Contraction alkalosis: mildly improved *Volume depletion: improving *Electrolyte d/o (hypokalemia/hypochloremia): improving *DMI with Gastroparesis/Neuropathy: *Anemia, chronic: *HTN: On coreg/clonidine/captopril *Anxiety/depression: on Fluoxetine *Long QT Syndrome: noted on EKG's since 2019. Pt is on SSRI *GERD: Discharge diagnosis: Intractable nausea vomiting acute kidney injury on chronic kidney disease Secondary discharge diagnosis: Contraction alkalosis following completion electrolyte dispense order diabetes chronic anemia hypertension anxiety depression GERD Time Spent with Patient Time attestation: Total time spent providing and/or coordinating discharge services: Time spent: Greater than 30 minutes EXAM Constitutional Vitals: Temp Pulse Resp BP Pulse Ox O2 Del Method O2 Flow Rate 98.1 F 81 21 141/66 99 0 05/20/22 08:00 05/20/22 08:00 05/20/22 10:00 05/20/22 10:00 05/20/22 08:00 05/20/22 10:00 05/19/22 08:36 Discharge Data Data Completed and Pending Labs on day of discharge: Labs from last 24 hours 05/20/22 05/20/22 05/19/22 06:45 06:45 10:43 ABG Methemoglobin 0.1 L VBG pH 7.60 H VBG pCO2 30.7 L VBG pO2 134.6 H VBG HCO3 29.7 H VBG Total CO2 30.7 H VBG O2 Saturation 88.1 H VBG Base Excess 8 H VBG Lactic Acid Carboxyhemoglobin 10.4 H Total Hemoglobin 12.9 L Sodium 132 L Potassium 3.6 Chloride 91 L Carbon Dioxide 30 Anion Gap 11.0 BUN 44 H Creatinine 3.5 H GFR Calculation 21 Glucose 136 H Osmolality Uric Acid 7.6 Calcium 8.8 Phosphorus 2.3 L Magnesium 2.6 H Total Bilirubin 0.2 Direct Bilirubin < 0.2 GGT 13 AST 15 ALT 13 Alkaline Phosphatase 122 H Lactate Dehydrogenase 201 Total Protein 6.5 Albumin 3.3 Globulin 3.2 Albumin/Globulin Ratio 1.0 Triglycerides 115 Beta-Hydroxybutyrate Salicylates U Cannabinoids Confirm Ethyl Alcohol mg/dL < 10.0 Ethyl Alcohol g/dL < 0.010 05/19/22 05/19/22 05/19/22 10:43 10:42 10:42 ABG Methemoglobin VBG pH VBG pCO2 VBG pO2 VBG HCO3 VBG Total CO2 VBG O2 Saturation VBG Base Excess VBG Lactic Acid 1.2 Carboxyhemoglobin Total Hemoglobin Sodium Potassium Chloride Carbon Dioxide Anion Gap BUN Creatinine GFR Calculation Glucose Osmolality 308 H Uric Acid Calcium Phosphorus Magnesium Total Bilirubin Direct Bilirubin GGT AST ALT Alkaline Phosphatase Lactate Dehydrogenase Total Protein Albumin Globulin Albumin/Globulin Ratio Triglycerides Beta-Hydroxybutyrate 1.31 H Salicylates U Cannabinoids Confirm Ethyl Alcohol mg/dL Ethyl Alcohol g/dL 05/19/22 05/19/22 05/18/22 10:42 10:41 21:05 ABG Methemoglobin VBG pH VBG pCO2 VBG pO2 VBG HCO3 VBG Total CO2 VBG O2 Saturation VBG Base Excess VBG Lactic Acid Carboxyhemoglobin Total Hemoglobin Sodium Potassium Chloride Carbon Dioxide Anion Gap BUN Creatinine GFR Calculation Glucose Osmolality Uric Acid Calcium Phosphorus Magnesium Total Bilirubin Direct Bilirubin GGT AST ALT Alkaline Phosphatase Lactate Dehydrogenase 231 H Total Protein Albumin Globulin Albumin/Globulin Ratio Triglycerides Beta-Hydroxybutyrate Salicylates < 0.3 U Cannabinoids Confirm Pending Ethyl Alcohol mg/dL Ethyl Alcohol g/dL Preliminary micro results at discharge 05/18/22 11:38 Blood Culture - Preliminary Blood 05/18/22 11:30 Blood Culture - Preliminary Blood Discharge Plan Patient/Caregiver Discharge Instructions Activity: increase activity as tolerated Diet: Consistent Carbohydrate Instructions: Dehydration (GEN), Acute Kidney Injury (GEN) Prescriptions: Continued insulin aspart U-100 [Novolog U-100 Insulin aspart] 100 unit/mL solution See Rx Instructions subcut TID Qty: 60 1RF Rx Instructions: subcut three times daily with meals; Moderate Dose Scale Blood Sugar (mg/dL), Units Insulin 70-130, 0 units 131-180, 4 units 181-240, 8 units 241-300, 10 units 301-350, 12 units 351-400, 16 units >400, 20 units and call MD (ZEKE) insulin syringes (disposable) 1 mL syringe See Rx Instructions .Route Qty: 500 0RF Rx Instructions: use for insulin three times daily venlafaxine 75 mg capsule,extended release 24hr 225 mg PO QAM Qty: 90 2RF mirtazapine 15 mg tablet,disintegrating 15 mg PO HS Qty: 90 0RF Baqsimi 3 mg/actuation spray,non-aerosol 3 mg intranasal ONCE PRN (Reason: hypoglycemia) Qty: 1 0RF Rx Instructions: 1 spray intranasal as needed ondansetron 4 mg tablet,disintegrating 4 mg PO Q8H Qty: 120 0RF clonidine 0.2 mg/24 hr patch weekly 1 patch transdermal QWEEK Qty: 4 2RF Rx Instructions: Change on Mondays sucralfate [Carafate] 1 gram tablet 1 g PO BID Qty: 70 0RF fluoxetine 20 mg capsule 20 mg PO QDAY Qty: 90 0RF famotidine 20 mg tablet 10 mg PO BID Qty: 90 0RF (DME) Dexcom sensor & monitor See Rx Instructions .Route .MEDSUPPLY Qty: 1 0RF Rx Instructions: As directed promethazine [Promethegan] 25 mg suppository 25 mg WI Q6H PRN (Reason: nausea and vomiting) Qty: 12 0RF captopril 12.5 mg tablet 12.5 mg PO TID Qty: 90 11RF Rx Instructions: Skip dose if vomiting or BP < 120 mmHg (DME) blood-glucose meter Misc See Rx Instructions .Route Qty: 1 3RF Rx Instructions: use to test blood sugar 5 times daily (DME) Blood Glucose Test Strip See Rx Instructions .ROUTE .MEDSUPPLY Qty: 500 3RF Rx Instructions: use to test blood sugar 5 times daily (DME) lancets Misc See Rx Instructions .Route Qty: 500 3RF Rx Instructions: use to test blood sugar 5 times daily (DME) Ketone Urine Test Strip See Rx Instructions .Route Qty: 100 0RF Rx Instructions: use to test urine for ketones daily carvedilol 6.25 mg tablet 1 tab PO BID nifedipine 30 mg tablet extended release 24hr 1 tab PO QDAY Follow Up Plan Follow up with: Khari Mills MD [Physician] - 06/23/22 2:45 pm (Continue with your currently scheduled appointment.) Flo Peña MD [Primary Care Provider] - 05/25/22 10:45 am (Please arrive 15 minutes early.) Patient Disposition: Home, Self-Care Plan of Treatment: As above Prognosis: Undetermined Overall status at discharge: patient is progressing back to baseline Discharge Orders: Discharge Order (Routine); Ordered 05/20/22 Ordered By: Deangelo Basilio [facility] VTE Deep Vein Thrombosis/Pulmonary Embolism Present on Admission: No
--- NOTE | 2022-05-20 11:54 | Nephrology Progress Note ---
SUBJECTIVE Subjective Patient information: Note initiated : 05/20/22 at 11:54 am Service Date, if different from initiated Date: [] Patient: Mauri Levine 36 y/o M admitted on 05/18/22 for vomiting,dehydration- ROSALIO,Alkalosis. Chief Complaint: [Nausea and vomiting] Principal diagnosis: ARF Interval history: Patient is enjoyed improved nausea and vomiting for the past 36 hours and is acceptable for discharge at this time. Vital Signs Temp Pulse Resp BP Pulse Ox O2 Del Method 05/20/22 07:45 Room Air 05/20/22 10:00 21 141/66 Room Air 05/20/22 08:00 36.7 C 81 23 H 145/87 99 Room Air 05/20/22 06:10 82 99 05/20/22 06:00 82 15 136/71 99 05/20/22 04:31 36.7 C 05/20/22 04:11 74 24 H 100 05/20/22 04:00 77 137/78 100 05/20/22 02:42 79 100 05/20/22 02:00 74 115/88 100 05/20/22 01:44 73 98 05/20/22 01:31 96 Room Air 05/20/22 01:28 36.6 C 05/20/22 00:00 36.4 C 70 14 132/67 99 Room Air 05/19/22 23:41 36.2 C 05/19/22 22:02 22 102/64 99 Room Air 05/19/22 20:35 16 05/19/22 20:00 36.1 C 22 108/59 05/19/22 20:00 97 Room Air 05/19/22 18:01 177/67 05/19/22 16:47 115/67 05/19/22 16:00 36.6 C 18 115/67 100 Room Air 05/19/22 14:00 60 106/61 98 Room Air 05/19/22 13:52 18 138/79 98 Room Air 05/19/22 12:58 21 173/100 99 Room Air Intake and Output 05/19/22 05/20/22 05/20/22 21:59 05:59 13:59 Intake Total 970 2136 240 Output Total 1000 1000 Balance 970 1136 -760 Intake: IV 520 1000 Sodium Chloride 0.9% 1,000 ml @ 1000 100 mls/hr IV .Q10H KOKO Rx#: [id number] Potassium Chloride 40 Meq In 520 Dextrose 5% in Water 500 ml @ 130 mls/hr IV UD PRN Rx#: [id number] Oral 450 1136 240 Output: Void Amount 1000 1000 Other: Meal Dinner popsicle Breakfast Percent of Meal Consumed 100% 100% 100% Feeding Ability Independent Independent Urine Appearance Clear Clear Urine Color Yellow Yellow Urine Odor Normal Normal Weight 71.305 kg Serum Creatinine Pertinent ROS: Feels good, wants to go home Additional PMFSH (Level 3 Only): N/A Constitutional Vitals: Vital Signs Temp Pulse Resp BP Pulse Ox O2 Del Method O2 Flow Rate 36.7 C 81 21 141/66 99 0 05/20/22 08:00 05/20/22 08:00 05/20/22 10:00 05/20/22 10:00 05/20/22 08:00 05/20/22 10:00 05/19/22 08:36 Period Temp Pulse Resp BP Sys/Menard Pulse Ox O2 Del Method O2 Flow Rate Last 24 Hr 36.1 C-36.7 C 60-82 14-24 102-177/59-105 95-100 Room Air-Room Air Intake and Output 05/19/22 05/20/22 05/20/22 21:59 05:59 13:59 Intake Total 970 2136 240 Output Total 1000 1000 Balance 970 1136 -760 Weight 71.305 kg Intake & Output: Intake & Output 05/19/22 05/20/22 05/20/22 21:59 05:59 13:59 Intake Total 970 2136 240 Output Total 1000 1000 Balance 970 1136 -760 Weight 71.305 kg Intake: IV 520 1000 Sodium Chloride 0.9% 1,000 ml @ 1000 100 mls/hr IV .Q10H [facility]OK[facility] Rx#: [id number] Potassium Chloride 40 Meq In 520 Dextrose 5% in Water 500 ml @ 130 mls/hr IV UD PRN Rx#: [id number] Oral 450 1136 240 Output: Void Amount 1000 1000 Other: Meal Dinner popsicle Breakfast Percent of Meal Consumed 100% 100% 100% Feeding Ability Independent Independent Urine Appearance Clear Clear Urine Color Yellow Yellow Urine Odor Normal Normal General appearance: cooperative, no acute distress and thin Head Head exam: Present normal inspection Eye Eye exam: Present EOMI and PERRL; Absent scleral icterus ENT ENT exam: Present mucous membranes moist Neck Neck exam: Absent meningismus Respiratory Respiratory exam: Present normal respiratory exam and CTAB Cardiovascular Cardiovascular exam: Present normal rate and rhythm, +S1, +S2 and systolic murmur GI/Abdominal GI/Abdominal exam: Present normal bowel sounds; Absent tenderness Neurological Exam Neurological exam: Present alert, CN II-XII intact and oriented X3 Psychiatric Psychiatric exam: Present normal affect Skin Skin exam: Present dry Additional comments: Tattooed A/P Assessment and plan (1) Acid-base disorder, mixed: Status: Acute Comment: Not sure what the missing anion is but suspect some ketone bodies, some organic anions for decreased GFR like PO4 and SO4. Osmolar gap was <10 so ethylene glycol, MeOH and Isopropyl alcolhol are unlikely. Could check for d-Lactate with bacterial overggrowth from DM (2) Renal failure (ARF), acute on chronic: Status: Acute Comment: Established patter on N/V dehydration and AFR (3) CKD stage G3b/A3, GFR 30-44 and albumin creatinine ratio >300 mg/g: Status: Acute (4) Intractable cyclical vomiting with nausea: Status: Acute Comment: As above. 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 Qualifiers: Chronic kidney disease stage: stage 3 (moderate) Qualified Code(s): E10.22 - Type 1 diabetes mellitus with diabetic chronic kidney disease; N18.30 - Chronic kidney disease, stage 3 unspecified (6) Hypertension, essential: Status: Chronic Comment: labile due to unpredictable Rx absorption with gastroparesis and propensity for dehydration Hold captopril if persistent vomiting occurs or bp less than 120/80 stop coreg and nifedipine Continue clonidine patch#1 Labetalol IV PRN Narrative A/P Narrative: Stable for discharge at this time He has follow-up with me already established Plan of Treatment: As above Time Spent With Patient Time: Total time spent is greater than 50% in coordination of care (as documented) at patient's floor/unit and/or counseling patient:
[2022-05-20] MEDS ORDERED: HEPARIN SODIUM,PORCINE/PF 500 UNIT/5 ML SYRINGE IV ONE (12:54)
[2022-05-25] MEDS ORDERED: cloNIDine TTS 2 1 PATCH PATCH TD SCH (09:00)
== END 2022-05-20 13:35 | disposition home or self-care (01) | DRG 74 ==
LOC: ED 09:36 → ICU 15:00
PROVIDERS: ADMIT Internal Medicine; ATTEND Internal Medicine

== ENCOUNTER 2022-06-04 13:10 | Inpatient (IN) ==
[2022-06-04] MEDS ORDERED: LACTATED RINGERS 1,000 ML IV ONE ×4 (13:37→19:49)
[2022-06-04] MEDS ORDERED: 0.45 % SODIUM CHLORIDE 1,000 ML IV SCH ×2 (13:45→15:18)
--- NOTE | 2022-06-04 14:01 | Emergency Department Note ---
HPI General Chief complaint: Blood Sugar Problem Stated complaint: Hi blood sugar, seizure Time Seen by Provider: 06/04/22 13:12 Source: EMS Mode of arrival: EMS History of Present Illness HPI Narrative: Mauri Levine is a 36-year-old male brought to the emergency department by ambulance after a 2-minute or longer tonic-clonic seizure. The patient's mother called 911 after this occurred. The patient's mother reports the patient was confused when he got out of the shower this morning and refused to go to be seen. He later became unresponsive and it was found that his insulin pump was . EMS witnessed a second tonic-clonic seizure while in route to the hospital, treated after 30 to 60 seconds with 5 mg of Versed IV. The patient stopped breathing for approximately 5 to 10 seconds, and was bagged. He has been maintaining an oxygen saturation of 100% with 15 L/min by mask. Thus far all monitors have only read his blood sugar as "high." Associated signs and symptoms include nausea and vomiting x3 days. The patient has had no oral intake of note in that time. EMS administered 800 mL of fluid bringing his blood pressure from 70 over 40s to 80-90 systolic. Patient is unresponsive upon arrival to the emergency department. Related Data Home Medications Medication Instructions Recorded Confirmed carvedilol 6.25 mg tablet 1 tab PO BID 05/18/22 05/25/22 nifedipine 30 mg tablet,extended 1 tab PO QDAY 05/18/22 05/25/22 release 24 hr Previous Rx's Medication Instructions Recorded Dexcom sensor & monitor #1 ea 08/27/21 acetone (urine) test (Ketone Urine #100 ea 09/10/21 Test strips) blood sugar diagnostic (Blood #500 ea 09/10/21 Glucose Test strips) blood-glucose meter #1 ea 09/10/21 lancets #500 ea 09/10/21 insulin aspart U-100 100 unit/mL See Rx Instructions subcut TID #60 01/12/22 subcutaneous solution (Novolog mL U-100 Insulin aspart) insulin syringes (disposable) 1 mL #500 ea 01/12/22 venlafaxine 75 mg capsule,extended 225 mg PO QAM #90 caps 03/09/22 release 24 hr mirtazapine 15 mg disintegrating 15 mg PO HS #90 tabs 03/11/22 tablet promethazine 25 mg rectal 25 mg DE Q6H PRN nausea and 04/09/22 suppository (Promethegan) vomiting #12 ea captopril 12.5 mg tablet 12.5 mg PO TID ckd, HTN, DM #90 04/20/22 tabs glucagon 3 mg/actuation nasal 3 mg intranasal ONCE PRN 04/20/22 spray (Baqsimi) hypoglycemia #1 ea ondansetron 4 mg disintegrating 4 mg PO Q8H cyclic vomiting #120 04/21/22 tablet tabs clonidine 0.2 mg/24 hr weekly 1 patch transdermal QWEEK #4 ea 04/26/22 transdermal patch fluoxetine 20 mg capsule 20 mg PO QDAY #90 caps 05/04/22 famotidine 20 mg tablet 10 mg PO BID #90 tabs 05/12/22 sucralfate 1 gram tablet (Carafate) 1 g PO BID #70 tabs 05/28/22 Allergies Allergy/AdvReac Type Severity Reaction Status Date / Time NSAIDS (Non-Steroidal Allergy Unknown Unknown Verified 06/04/22 13:31 Anti-Inflamma metoclopramide [From Reglan] AdvReac Mild Agitated Verified 06/04/22 13:31 prochlorperazine AdvReac Mild "My whole Verified 06/04/22 13:31 [From Compazine] body freaks out." silver AdvReac Mild dystonic Verified 06/04/22 13:31 IV iodine contrast Allergy Unknown Unknown Uncoded 05/25/22 10:33 Review of Systems ROS ROS Narrative: Narrative: Limitations: ROS unobtainable due to patients medical condition [facility] Narrative Patient History Narrative: Narrative: Medical/Surgical/Family History All Active Problems (Updated 06/04/22 @ 20:59 by Muna Smith PA-C) Acute worsening of stage 4 chronic kidney disease (Acute) Testosterone deficiency (Chronic) Nausea and vomiting (Chronic) GERD (gastroesophageal reflux disease) (Chronic) Other hammer toe(s) (acquired), left foot (Chronic) Hypertension, essential (Chronic) Hyperlipidemia (Chronic) History of neuroleptic malignant syndrome (Chronic) Dehydration (Chronic) Drug-induced nausea and vomiting (Acute) Uncontrolled type 1 diabetes mellitus with diabetic nephropathy, with long-term current use of insulin (Chronic) Cyclic vomiting syndrome (Chronic) Type 1 diabetes mellitus with stage 3 chronic kidney disease and hypertension (Chronic) Marijuana use, continuous (Chronic) CKD (chronic kidney disease) (Acute) Nephrotic range proteinuria (Chronic) Controlled type 1 diabetes mellitus with chronic kidney disease (Chronic) Port-A-Cath in place (Acute) Diabetic gastroparesis associated with type 1 diabetes mellitus (Chronic) Diabetic neuropathy associated with type 1 diabetes mellitus (Chronic) Diabetic retinopathy associated with type 1 diabetes mellitus (Chronic) Anxiety (Chronic) Back pain (Chronic) Physical deconditioning (Chronic) Malnutrition (Chronic) Acute dehydration (Acute) Acute hypokalemia (Acute) QT prolongation (Acute) Dehydration (Acute) No-show for appointment (Acute) Intractable cyclical vomiting with nausea (Acute) Diabetic gastroparesis (Chronic) ROSALIO (acute kidney injury) (Acute) Hyperglycemia (Acute) Dehydration (Acute) Major depressive disorder, recurrent (Chronic) Generalized anxiety disorder (Chronic) Trauma and stressor-related disorder (Chronic) Diabetic gastroparesis (Acute) Nausea & vomiting (Acute) Acute dehydration (Acute) Ketosis (Acute) Uncontrolled diabetes mellitus (Acute) DKA (diabetic ketoacidosis) (Acute) Hyperosmolar hyperglycemic state (HHS) (Acute) Diabetic gastroparesis (Acute) Metabolic alkalosis (Acute) Stage 2 acute kidney injury (Acute) Hyponatremia (Acute) DKA (diabetic ketoacidosis) (Acute) Has multiple sexual partners (Acute) Hyperosmolar hyperglycemic state (HHS) (Acute) Acute hypokalemia (Acute) ROSALIO (acute kidney injury) (Acute) Nausea & vomiting (Acute) Hypochloremia (Acute) Alkalosis (Acute) Acute renal failure superimposed on stage 3a chronic kidney disease (Acute) Metabolic alkalosis (Acute) Altered mental status (Acute) Depression (Acute) Acute hyperglycemia (Acute) Nausea & vomiting (Acute) Seizures (Acute) Abnormal CT of brain (Acute) Sepsis (Acute) Hyponatremia (Acute) Pneumonia (Acute) Acute renal failure (Acute) Hypokalemia (Acute) Diabetic gastroparesis (Acute) Diabetic gastroparesis (Acute) CKD stage G3b/A3, GFR 30-44 and albumin creatinine ratio >300 mg/g (Acute) Renal failure (ARF), acute on chronic (Acute) ROSALIO (acute kidney injury) (Acute) Acute hypokalemia (Acute) Acidosis (Acute) Acid-base disorder, mixed (Acute) Medical History Abdominal pain, epigastric Abnormal CT of brain Altered mental status Anxiety Back pain Chronic ulcer of left foot Coffee ground emesis Depression Diabetes mellitus type I Age 12, With foot ulcer Diabetic gastroparesis associated with type 1 diabetes mellitus Diabetic neuropathy associated with type 1 diabetes mellitus Diabetic peripheral neuropathy Diabetic retinopathy associated with type 1 diabetes mellitus DKA, type 1 Esophageal candidiasis Gastroenteritis Gastroparesis due to DM GERD (gastroesophageal reflux disease) Hallux valgus (acquired), left foot Has multiple sexual partners History of neuroleptic malignant syndrome To compazine (prochlorperazine). Tolerates promethazine without issue Hyperlipidemia Hypertension, essential labile due to unpredictable Rx absorption with gastroparesis and propensity for dehydration Hold captopril if persistent vomiting occurs or bp less than 120/80 stop coreg and nifedipine Continue clonidine patch#1 Labetalol IV PRN Hypokalemia Connie-Byrne tear Malnutrition Marijuana use, continuous Nausea and vomiting Non-pressure chronic ulcer of other part of left foot limited to breakdown of skin Other hammer toe(s) (acquired), left foot Peripheral autonomic neuropathy due to DM Physical deconditioning Seizures Sepsis Tardive dyskinesia due to metoclopramide (Reglan) Testosterone deficiency Surgical History History of hand surgery Finger repair History of toe surgery left hallux Family History Mother Atrial fibrillation Essential hypertension Sister Malignant neoplasm of female breast Maternal Grandfather Malignant neoplasm of colon Recorded 11/12/10 Father Essential hypertension Other Adopted DKA, type 1 Social History Smoking Status: Former smoker Alcohol Intake Frequency: former alcohol drinker Substance Use: former substance user Exam Narrative Narrative: General: Minimally responsive to painful stimulus HEENT: PERRL. dry oral mucosa, mouth open resps Chest/respirations: Symmetric chest wall expansion, CTAB, adequate tidal volume and respiratory effort CV: RRR/no MRG, cap refill less than 2 seconds Abdomen: NABs, soft, NT/ND Extremities: no edema Skin: Normal warm and dry; flushed cheeks Course Course Course Narrative: Patient seen and evaluated. Labs significantly delayed. Chem 8 ordered. Potassium 6.7. 2800mL isotonic crystalloid administered in first four hours, including 800mL by EMS. Patient remains obtunded, though responsive to pain and breathing effectively. Hospitalist service wishes to consider transfer out given the patient's poor baseline renal function and potential need for dialysis. Transfer facility is sought. [facility] transfer center returns her request for bed, and Dr. Townsend of the [facility] service calls to discuss the patient's care. Given that the patient's potassium has normalized and he has produced 650 mL of urine this afternoon, he states the patient is unlikely to require emergent dialysis. As the patient does not meet criteria for emergent dialysis (the reason for higher level of care), they are unable to accept the patient on that basis. of the nephrology service here is contacted once again and states he agrees with the assessment. Dr Nash is recontacted and extensive discussion was had with me and with Dr. Cullen. At the conclusion of this discussion, Dr. Kiser excepts the patient for admission for treatment under DKA protocol in the ICU. Reevaluation(s) Reevaluation #1: Awaiting potassium result. Time: 14:23 Reevaluation #2: Awaiting potassium result. Time: 14:48 Reevaluation #3: Awaiting potassium result Time: 15:58 Consultations Consultation #1: Dr Nash, [id number] Time: 16:35 Consultation #2: Dr Yadav Time: 17:40 Consultation #3: Dr Nash. Pt is accepted for admission to the ICU at 1752 Time: 17:52 Vital Signs Vital signs: Vital Signs Temperature 97.3 F 06/04/22 13:21 Pulse Rate 92 H 06/04/22 13:21 Respiratory Rate 28 H 06/04/22 13:21 Blood Pressure 95/48 06/04/22 13:21 Pulse Oximetry (%) 100 06/04/22 13:21 Oxygen Delivery Method 06/04/22 13:21 Temperature 97.3 F 06/04/22 13:21 Pulse Rate 102 H 06/04/22 21:01 Respiratory Rate 26 H 06/04/22 21:01 Blood Pressure 170/68 06/04/22 21:01 Pulse Oximetry (%) 100 06/04/22 21:01 Oxygen Delivery Method 06/04/22 13:33 [facility] Narrative Medical decision making narrative: Patient is postictal upon arrival. Fluid repletion initiated. Labs delayed. Chem 8 ordered. Potassium 6.7. Mag 3.2. Base excess >40. Upon receipt of potassium, insulin bolus of 7u and drip of 7u/hr initiated. Hospitalist service makes contact once labs have returned. Full chemistries have not returned, only electrolytes. Hospitalist service is hesitant to admit this patient given his potential need for dialysis due to poor baseline renal function. EKG with QT 402ms/QTc 508ms. Continue fluid resuscitation, insulin, and closely monitor labs. Lab Data Result diagrams: 06/04/22 14:54 06/04/22 14:35 Labs: Lab Results 06/04/22 06/04/22 06/04/22 Range/Units 14:34 14:34 14:34 WBC (4.5-11.0) K/mcL RBC (4.63-6.08) M/mcL Hgb (13.7-17.5) g/dL Hct (40.1-51.0) % POC Hct (41-55) MCV (80.0-100.0) fL MCH (26.0-34.0) pg MCHC (31.0-36.0) g/dL RDW (11.5-14.5) % Plt Count (140-440) K/mcL MPV (8.8-12.5) fL Immature Gran % (Auto) (0.0-0.5) % Neut % (Auto) (38.0-78.0) % Lymph % (Auto) (15.5-49.0) % [place] % (Auto) (1.0-12.0) % Eos % (Auto) (0.0-7.0) % Baso % (Auto) (0.0-2.0) % Lymph # (Auto) (1.50-4.80) K/mcL [place] # (Auto) (0.10-0.90) K/mcL Eos # (Auto) (0.00-0.70) K/mcL Baso # (Auto) (0.00-0.30) K/mcL Immature Gran # (0.00-0.05) K/mcl Absolute Neutrophils (1.80-8.00) K/mcL ABG Methemoglobin (0.4-1.5) % VBG pH (7.32-7.42) U POC VBG pH (7.32-7.42) VBG pCO2 (41.0-51.0) mmHg POC VBG pCO2 at Temp (41-51) VBG pO2 (25.0-40.0) mmHg POC VBG pO2 (25-40) VBG HCO3 (24.0-28.0) mmol/L POC VBG HCO3 (24-28) VBG Total CO2 (25.0-29.0) mmol/L POC VBG Total CO2 (25-29) VBG O2 Saturation (40.0-70.0) % POC Venous O2 Sat (40-70) VBG Base Excess (-2-3) POC VBG Base Excess (-2-2) VBG Lactic Acid (0.5-2) Carboxyhemoglobin (0.0-1.5) % THgb Total Hemoglobin (13.5-16.5) gm/Dl POC Sodium (133-145) Sodium (133-145) mmol/L POC Potassium (3.3-5.1) Potassium (3.3-5.1) mmol/L POC Chloride (96-108) Chloride (96-108) mmol/L Carbon Dioxide (22-30) mmol/L POC Total CO2 (22-30) Anion Gap (8.0-16.0) POC BUN (6-20) POC Creatinine (0.6-1.2) POC Glucose (70-105) POC WB Ioniz Calcium (1.16-1.32) Magnesium TNP Total Creatine Kinase (24-195) U/L CK-MB (CK-2) (<6.7) ng/mL Beta-Hydroxybutyrate (<0.27) mmol/L Urine Color Urine Appearance (Clear) Urine pH (5.0-9.0) Ur Specific Cassandra (1.000-1.035) Urine Protein (Negative) mg/dL Urine Glucose (UA) (Negative) mg/dL Urine Ketones (Negative) mg/dL Urine Occult Blood (Negative) john/mcL Urine Nitrate (Negative) Urine Bilirubin (Negative) mg/dL Urine Urobilinogen mg/dL Ur Leukocyte Esterase (Negative) /uL Urine RBC (0-3) /hpf Urine WBC (0-4) /hpf Ur Squamous Epith Cells (0-4) /hpf Urine Bacteria (0) /hpf Hyaline Casts (0-2) /lph Ur Culture Indicated? Urine Opiates Screen Ur Opiates Confirm Ur Oxycodone Screen U Oxycod/Oxymor Confirm Urine Methadone Screen Ur Methadone Confirm Acetaminophen < 5.0 ug/mL Ur Barbiturates Screen Ur Barbiturate Confirm Ur Phencyclidine Scrn Urine PCP Confirm Ur Amphetamines Screen U Amphetamines Confirm U Benzodiazepines Scrn Ur Benzodiazepine, Qnt Urine Cocaine Screen Urine Cocaine Confirm U Marijuana (THC) Screen Ethyl Alcohol mg/dL < 10.0 mg/dL Ethyl Alcohol g/dL < 0.010 (<0.010) gm/dL 06/04/22 06/04/22 06/04/22 Range/Units 14:35 14:35 14:54 WBC 13.2 H (4.5-11.0) K/mcL RBC 3.62 L (4.63-6.08) M/mcL Hgb 9.6 L (13.7-17.5) g/dL Hct 32.7 L (40.1-51.0) % POC Hct (41-55) MCV 90.3 (80.0-100.0) fL MCH 26.5 (26.0-34.0) pg MCHC 29.4 L (31.0-36.0) g/dL RDW 14.9 H (11.5-14.5) % Plt Count 321 (140-440) K/mcL MPV 11.9 (8.8-12.5) fL Immature Gran % (Auto) 0.7 H (0.0-0.5) % Neut % (Auto) 89.5 H (38.0-78.0) % Lymph % (Auto) 4.6 L (15.5-49.0) % [place] % (Auto) 4.7 (1.0-12.0) % Eos % (Auto) 0 (0.0-7.0) % Baso % (Auto) 0.5 (0.0-2.0) % Lymph # (Auto) 0.61 L (1.50-4.80) K/mcL [place] # (Auto) 0.62 (0.10-0.90) K/mcL Eos # (Auto) 0 (0.00-0.70) K/mcL Baso # (Auto) 0.06 (0.00-0.30) K/mcL Immature Gran # 0.09 H (0.00-0.05) K/mcl Absolute Neutrophils 11.80 H (1.80-8.00) K/mcL ABG Methemoglobin 0.3 L (0.4-1.5) % VBG pH 7.15 L* (7.32-7.42) U POC VBG pH (7.32-7.42) VBG pCO2 40.3 L (41.0-51.0) mmHg POC VBG pCO2 at Temp (41-51) VBG pO2 69.8 H (25.0-40.0) mmHg POC VBG pO2 (25-40) VBG HCO3 13.8 L (24.0-28.0) mmol/L POC VBG HCO3 (24-28) VBG Total CO2 15.1 L (25.0-29.0) mmol/L POC VBG Total CO2 (25-29) VBG O2 Saturation 86.9 H (40.0-70.0) % POC Venous O2 Sat (40-70) VBG Base Excess -14 L (-2-3) POC VBG Base Excess (-2-2) VBG Lactic Acid (0.5-2) Carboxyhemoglobin 2.5 H (0.0-1.5) % THgb Total Hemoglobin 11.2 L (13.5-16.5) gm/Dl POC Sodium (133-145) Sodium 121 L (133-145) mmol/L POC Potassium (3.3-5.1) Potassium 6.7 H* (3.3-5.1) mmol/L POC Chloride (96-108) Chloride 64 L (96-108) mmol/L Carbon Dioxide 14 L (22-30) mmol/L POC Total CO2 (22-30) Anion Gap 43.0 H (8.0-16.0) POC BUN (6-20) POC Creatinine (0.6-1.2) POC Glucose (70-105) POC WB Ioniz Calcium (1.16-1.32) Magnesium 3.2 H Total Creatine Kinase (24-195) U/L CK-MB (CK-2) (<6.7) ng/mL Beta-Hydroxybutyrate 13.25 H (<0.27) mmol/L Urine Color Urine Appearance (Clear) Urine pH (5.0-9.0) Ur Specific Cassandra (1.000-1.035) Urine Protein (Negative) mg/dL Urine Glucose (UA) (Negative) mg/dL Urine Ketones (Negative) mg/dL Urine Occult Blood (Negative) john/mcL Urine Nitrate (Negative) Urine Bilirubin (Negative) mg/dL Urine Urobilinogen mg/dL Ur Leukocyte Esterase (Negative) /uL Urine RBC (0-3) /hpf Urine WBC (0-4) /hpf Ur Squamous Epith Cells (0-4) /hpf Urine Bacteria (0) /hpf Hyaline Casts (0-2) /lph Ur Culture Indicated? Urine Opiates Screen Ur Opiates Confirm Ur Oxycodone Screen U Oxycod/Oxymor Confirm Urine Methadone Screen Ur Methadone Confirm Acetaminophen ug/mL Ur Barbiturates Screen Ur Barbiturate Confirm Ur Phencyclidine Scrn Urine PCP Confirm Ur Amphetamines Screen U Amphetamines Confirm U Benzodiazepines Scrn Ur Benzodiazepine, Qnt Urine Cocaine Screen Urine Cocaine Confirm U Marijuana (THC) Screen Ethyl Alcohol mg/dL mg/dL Ethyl Alcohol g/dL (<0.010) gm/dL 06/04/22 06/04/22 06/04/22 Range/Units 15:05 16:35 16:35 WBC (4.5-11.0) K/mcL RBC (4.63-6.08) M/mcL Hgb (13.7-17.5) g/dL Hct (40.1-51.0) % POC Hct (41-55) MCV (80.0-100.0) fL MCH (26.0-34.0) pg MCHC (31.0-36.0) g/dL RDW (11.5-14.5) % Plt Count (140-440) K/mcL MPV (8.8-12.5) fL Immature Gran % (Auto) (0.0-0.5) % Neut % (Auto) (38.0-78.0) % Lymph % (Auto) (15.5-49.0) % [place] % (Auto) (1.0-12.0) % Eos % (Auto) (0.0-7.0) % Baso % (Auto) (0.0-2.0) % Lymph # (Auto) (1.50-4.80) K/mcL [place] # (Auto) (0.10-0.90) K/mcL Eos # (Auto) (0.00-0.70) K/mcL Baso # (Auto) (0.00-0.30) K/mcL Immature Gran # (0.00-0.05) K/mcl Absolute Neutrophils (1.80-8.00) K/mcL ABG Methemoglobin (0.4-1.5) % VBG pH (7.32-7.42) U POC VBG pH 7.23 L (7.32-7.42) VBG pCO2 (41.0-51.0) mmHg POC VBG pCO2 at Temp 38.9 L (41-51) VBG pO2 (25.0-40.0) mmHg POC VBG pO2 47 H (25-40) VBG HCO3 (24.0-28.0) mmol/L POC VBG HCO3 16.2 L (24-28) VBG Total CO2 (25.0-29.0) mmol/L POC VBG Total CO2 17.0 L (25-29) VBG O2 Saturation (40.0-70.0) % POC Venous O2 Sat 75.0 H (40-70) VBG Base Excess (-2-3) POC VBG Base Excess -11.0 L (-2-2) VBG Lactic Acid 2.5 H (0.5-2) Carboxyhemoglobin (0.0-1.5) % THgb Total Hemoglobin (13.5-16.5) gm/Dl POC Sodium (133-145) Sodium (133-145) mmol/L POC Potassium (3.3-5.1) Potassium (3.3-5.1) mmol/L POC Chloride (96-108) Chloride (96-108) mmol/L Carbon Dioxide (22-30) mmol/L POC Total CO2 (22-30) Anion Gap (8.0-16.0) POC BUN (6-20) POC Creatinine (0.6-1.2) POC Glucose (70-105) POC WB Ioniz Calcium (1.16-1.32) Magnesium Total Creatine Kinase (24-195) U/L CK-MB (CK-2) (<6.7) ng/mL Beta-Hydroxybutyrate (<0.27) mmol/L Urine Color Lt. yellow Urine Appearance Clear (Clear) Urine pH 5.5 (5.0-9.0) Ur Specific Cassandra 1.020 (1.000-1.035) Urine Protein 100 A (Negative) mg/dL Urine Glucose (UA) >=1000 A (Negative) mg/dL Urine Ketones 15 A (Negative) mg/dL Urine Occult Blood Trace-lysed A (Negative) john/mcL Urine Nitrate Negative (Negative) Urine Bilirubin Negative (Negative) mg/dL Urine Urobilinogen Normal mg/dL Ur Leukocyte Esterase Negative (Negative) /uL Urine RBC < 1 (0-3) /hpf Urine WBC 2 (0-4) /hpf Ur Squamous Epith Cells 0 (0-4) /hpf Urine Bacteria None (0) /hpf Hyaline Casts 1 (0-2) /lph Ur Culture Indicated? No Urine Opiates Screen None detected Ur Opiates Confirm TNP Ur Oxycodone Screen None detected U Oxycod/Oxymor Confirm TNP Urine Methadone Screen None detected Ur Methadone Confirm TNP Acetaminophen ug/mL Ur Barbiturates Screen None detected Ur Barbiturate Confirm TNP Ur Phencyclidine Scrn None detected Urine PCP Confirm TNP Ur Amphetamines Screen None detected U Amphetamines Confirm TNP U Benzodiazepines Scrn None detected Ur Benzodiazepine, Qnt TNP Urine Cocaine Screen None detected Urine Cocaine Confirm TNP U Marijuana (THC) Screen Suspect positive A Ethyl Alcohol mg/dL mg/dL Ethyl Alcohol g/dL (<0.010) gm/dL 06/04/22 06/04/22 06/04/22 Range/Units 17:02 17:44 18:38 WBC (4.5-11.0) K/mcL RBC (4.63-6.08) M/mcL Hgb (13.7-17.5) g/dL Hct (40.1-51.0) % POC Hct 33.0 L (41-55) MCV (80.0-100.0) fL MCH (26.0-34.0) pg MCHC (31.0-36.0) g/dL RDW (11.5-14.5) % Plt Count (140-440) K/mcL MPV (8.8-12.5) fL Immature Gran % (Auto) (0.0-0.5) % Neut % (Auto) (38.0-78.0) % Lymph % (Auto) (15.5-49.0) % [place] % (Auto) (1.0-12.0) % Eos % (Auto) (0.0-7.0) % Baso % (Auto) (0.0-2.0) % Lymph # (Auto) (1.50-4.80) K/mcL [place] # (Auto) (0.10-0.90) K/mcL Eos # (Auto) (0.00-0.70) K/mcL Baso # (Auto) (0.00-0.30) K/mcL Immature Gran # (0.00-0.05) K/mcl Absolute Neutrophils (1.80-8.00) K/mcL ABG Methemoglobin 0.3 L (0.4-1.5) % VBG pH 7.24 L (7.32-7.42) U POC VBG pH (7.32-7.42) VBG pCO2 35.9 L (41.0-51.0) mmHg POC VBG pCO2 at Temp (41-51) VBG pO2 127.4 H (25.0-40.0) mmHg POC VBG pO2 (25-40) VBG HCO3 14.9 L (24.0-28.0) mmol/L POC VBG HCO3 (24-28) VBG Total CO2 16.0 L (25.0-29.0) mmol/L POC VBG Total CO2 (25-29) VBG O2 Saturation 93.6 H (40.0-70.0) % POC Venous O2 Sat (40-70) VBG Base Excess -12 L (-2-3) POC VBG Base Excess (-2-2) VBG Lactic Acid 1.9 (0.5-2) Carboxyhemoglobin 3.7 H (0.0-1.5) % THgb Total Hemoglobin 10.6 L (13.5-16.5) gm/Dl POC Sodium 124 L (133-145) Sodium (133-145) mmol/L POC Potassium 4.0 (3.3-5.1) Potassium (3.3-5.1) mmol/L POC Chloride 79 L (96-108) Chloride (96-108) mmol/L Carbon Dioxide (22-30) mmol/L POC Total CO2 16.0 L (22-30) Anion Gap (8.0-16.0) POC BUN 92 H (6-20) POC Creatinine 5.6 H* (0.6-1.2) POC Glucose > 700 H* (70-105) POC WB Ioniz Calcium 0.90 L (1.16-1.32) Magnesium Total Creatine Kinase (24-195) U/L CK-MB (CK-2) (<6.7) ng/mL Beta-Hydroxybutyrate (<0.27) mmol/L Urine Color Urine Appearance (Clear) Urine pH (5.0-9.0) Ur Specific Cassandra (1.000-1.035) Urine Protein (Negative) mg/dL Urine Glucose (UA) (Negative) mg/dL Urine Ketones (Negative) mg/dL Urine Occult Blood (Negative) john/mcL Urine Nitrate (Negative) Urine Bilirubin (Negative) mg/dL Urine Urobilinogen mg/dL Ur Leukocyte Esterase (Negative) /uL Urine RBC (0-3) /hpf Urine WBC (0-4) /hpf Ur Squamous Epith Cells (0-4) /hpf Urine Bacteria (0) /hpf Hyaline Casts (0-2) /lph Ur Culture Indicated? Urine Opiates Screen Ur Opiates Confirm Ur Oxycodone Screen U Oxycod/Oxymor Confirm Urine Methadone Screen Ur Methadone Confirm Acetaminophen ug/mL Ur Barbiturates Screen Ur Barbiturate Confirm Ur Phencyclidine Scrn Urine PCP Confirm Ur Amphetamines Screen U Amphetamines Confirm U Benzodiazepines Scrn Ur Benzodiazepine, Qnt Urine Cocaine Screen Urine Cocaine Confirm U Marijuana (THC) Screen Ethyl Alcohol mg/dL mg/dL Ethyl Alcohol g/dL (<0.010) gm/dL 06/04/22 06/04/22 06/04/22 Range/Units 19:50 19:52 19:53 WBC (4.5-11.0) K/mcL RBC (4.63-6.08) M/mcL Hgb (13.7-17.5) g/dL Hct (40.1-51.0) % POC Hct 30.0 L (41-55) MCV (80.0-100.0) fL MCH (26.0-34.0) pg MCHC (31.0-36.0) g/dL RDW (11.5-14.5) % Plt Count (140-440) K/mcL MPV (8.8-12.5) fL Immature Gran % (Auto) (0.0-0.5) % Neut % (Auto) (38.0-78.0) % Lymph % (Auto) (15.5-49.0) % [place] % (Auto) (1.0-12.0) % Eos % (Auto) (0.0-7.0) % Baso % (Auto) (0.0-2.0) % Lymph # (Auto) (1.50-4.80) K/mcL [place] # (Auto) (0.10-0.90) K/mcL Eos # (Auto) (0.00-0.70) K/mcL Baso # (Auto) (0.00-0.30) K/mcL Immature Gran # (0.00-0.05) K/mcl Absolute Neutrophils (1.80-8.00) K/mcL ABG Methemoglobin (0.4-1.5) % VBG pH (7.32-7.42) U POC VBG pH 7.38 (7.32-7.42) VBG pCO2 (41.0-51.0) mmHg POC VBG pCO2 at Temp 42.7 (41-51) VBG pO2 (25.0-40.0) mmHg POC VBG pO2 37 (25-40) VBG HCO3 (24.0-28.0) mmol/L POC VBG HCO3 25.3 (24-28) VBG Total CO2 (25.0-29.0) mmol/L POC VBG Total CO2 27.0 (25-29) VBG O2 Saturation (40.0-70.0) % POC Venous O2 Sat 69.0 (40-70) VBG Base Excess (-2-3) POC VBG Base Excess 0 (-2-2) VBG Lactic Acid 1.2 (0.5-2) Carboxyhemoglobin (0.0-1.5) % THgb Total Hemoglobin (13.5-16.5) gm/Dl POC Sodium 129 L (133-145) Sodium (133-145) mmol/L POC Potassium 3.8 (3.3-5.1) Potassium (3.3-5.1) mmol/L POC Chloride 84 L (96-108) Chloride (96-108) mmol/L Carbon Dioxide (22-30) mmol/L POC Total CO2 24.0 (22-30) Anion Gap (8.0-16.0) POC BUN 74 H (6-20) POC Creatinine 5.7 H* (0.6-1.2) POC Glucose > 700 H* (70-105) POC WB Ioniz Calcium 0.87 L (1.16-1.32) Magnesium Total Creatine Kinase 140 (24-195) U/L CK-MB (CK-2) 12.0 H (<6.7) ng/mL Beta-Hydroxybutyrate (<0.27) mmol/L Urine Color Urine Appearance (Clear) Urine pH (5.0-9.0) Ur Specific Cassandra (1.000-1.035) Urine Protein (Negative) mg/dL Urine Glucose (UA) (Negative) mg/dL Urine Ketones (Negative) mg/dL Urine Occult Blood (Negative) john/mcL Urine Nitrate (Negative) Urine Bilirubin (Negative) mg/dL Urine Urobilinogen mg/dL Ur Leukocyte Esterase (Negative) /uL Urine RBC (0-3) /hpf Urine WBC (0-4) /hpf Ur Squamous Epith Cells (0-4) /hpf Urine Bacteria (0) /hpf Hyaline Casts (0-2) /lph Ur Culture Indicated? Urine Opiates Screen Ur Opiates Confirm Ur Oxycodone Screen U Oxycod/Oxymor Confirm Urine Methadone Screen Ur Methadone Confirm Acetaminophen ug/mL Ur Barbiturates Screen Ur Barbiturate Confirm Ur Phencyclidine Scrn Urine PCP Confirm Ur Amphetamines Screen U Amphetamines Confirm U Benzodiazepines Scrn Ur Benzodiazepine, Qnt Urine Cocaine Screen Urine Cocaine Confirm U Marijuana (THC) Screen Ethyl Alcohol mg/dL mg/dL Ethyl Alcohol g/dL (<0.010) gm/dL 06/04/22 Range/Units 19:57 WBC (4.5-11.0) K/mcL RBC (4.63-6.08) M/mcL Hgb (13.7-17.5) g/dL Hct (40.1-51.0) % POC Hct 30.0 L (41-55) MCV (80.0-100.0) fL MCH (26.0-34.0) pg MCHC (31.0-36.0) g/dL RDW (11.5-14.5) % Plt Count (140-440) K/mcL MPV (8.8-12.5) fL Immature Gran % (Auto) (0.0-0.5) % Neut % (Auto) (38.0-78.0) % Lymph % (Auto) (15.5-49.0) % [place] % (Auto) (1.0-12.0) % Eos % (Auto) (0.0-7.0) % Baso % (Auto) (0.0-2.0) % Lymph # (Auto) (1.50-4.80) K/mcL [place] # (Auto) (0.10-0.90) K/mcL Eos # (Auto) (0.00-0.70) K/mcL Baso # (Auto) (0.00-0.30) K/mcL Immature Gran # (0.00-0.05) K/mcl Absolute Neutrophils (1.80-8.00) K/mcL ABG Methemoglobin (0.4-1.5) % VBG pH (7.32-7.42) U POC VBG pH (7.32-7.42) VBG pCO2 (41.0-51.0) mmHg POC VBG pCO2 at Temp (41-51) VBG pO2 (25.0-40.0) mmHg POC VBG pO2 (25-40) VBG HCO3 (24.0-28.0) mmol/L POC VBG HCO3 (24-28) VBG Total CO2 (25.0-29.0) mmol/L POC VBG Total CO2 (25-29) VBG O2 Saturation (40.0-70.0) % POC Venous O2 Sat (40-70) VBG Base Excess (-2-3) POC VBG Base Excess (-2-2) VBG Lactic Acid (0.5-2) Carboxyhemoglobin (0.0-1.5) % THgb Total Hemoglobin (13.5-16.5) gm/Dl POC Sodium 129 L (133-145) Sodium (133-145) mmol/L POC Potassium 3.9 (3.3-5.1) Potassium (3.3-5.1) mmol/L POC Chloride 85 L (96-108) Chloride (96-108) mmol/L Carbon Dioxide (22-30) mmol/L POC Total CO2 26.0 (22-30) Anion Gap (8.0-16.0) POC BUN 75 H (6-20) POC Creatinine 5.6 H* (0.6-1.2) POC Glucose > 700 H* (70-105) POC WB Ioniz Calcium 0.87 L (1.16-1.32) Magnesium Total Creatine Kinase (24-195) U/L CK-MB (CK-2) (<6.7) ng/mL Beta-Hydroxybutyrate (<0.27) mmol/L Urine Color Urine Appearance (Clear) Urine pH (5.0-9.0) Ur Specific Cassandra (1.000-1.035) Urine Protein (Negative) mg/dL Urine Glucose (UA) (Negative) mg/dL Urine Ketones (Negative) mg/dL Urine Occult Blood (Negative) john/mcL Urine Nitrate (Negative) Urine Bilirubin (Negative) mg/dL Urine Urobilinogen mg/dL Ur Leukocyte Esterase (Negative) /uL Urine RBC (0-3) /hpf Urine WBC (0-4) /hpf Ur Squamous Epith Cells (0-4) /hpf Urine Bacteria (0) /hpf Hyaline Casts (0-2) /lph Ur Culture Indicated? Urine Opiates Screen Ur Opiates Confirm Ur Oxycodone Screen U Oxycod/Oxymor Confirm Urine Methadone Screen Ur Methadone Confirm Acetaminophen ug/mL Ur Barbiturates Screen Ur Barbiturate Confirm Ur Phencyclidine Scrn Urine PCP Confirm Ur Amphetamines Screen U Amphetamines Confirm U Benzodiazepines Scrn Ur Benzodiazepine, Qnt Urine Cocaine Screen Urine Cocaine Confirm U Marijuana (THC) Screen Ethyl Alcohol mg/dL mg/dL Ethyl Alcohol g/dL (<0.010) gm/dL Discharge Plan Patient/Caregiver Discharge Instructions Pt seen by NURSE HEAD/PA only: Yes Clinical Impression: Renal failure (ARF), acute on chronic, DKA (diabetic ketoacidosis) Patient Disposition: Still a Patient Discharge Date/Time: 06/04/22 21:09
--- NOTE | 2022-06-04 14:11 | Cat Scan Report ---
CLINICAL INFORMATION: Seizure COMPARISON: Head CT 01/02/2022 TECHNIQUE: 2.5 mm helical slices were obtained in the skull base to vertex. Following reconstruction, axial reformatted images were reviewed at bone and parenchymal windows. The exam was performed using radiation dose optimization techniques including, but not limited to, automated exposure control, adjustment of the mA and/or kV according to patient size and use of iterative reconstruction technique. FINDINGS: The ventricles, sulci, fissures, and cisterns are symmetrically enlarged patible with mild global atrophy. No extra-axial fluid collections are identified. The cerebrum, brainstem and cerebellum are unremarkable. There is no evidence of hemorrhage, mass effect, or edema. Bone windows show no osseous abnormality. IMPRESSION: Mild atrophy-unchanged Interpreted and Authenticated by: Demetrius Smart 06/04/22
[2022-06-04 15:08] LABS: ABG Methemoglobin 0.3 % (0.4-1.5); Total Hemoglobin 11.2 gm/Dl (13.5-16.5); VBG Base Excess -14 (-2-3); VBG HCO3 13.8 mmol/L (24.0-28.0); VBG Oxygen Saturation 86.9 % (40.0-70.0); VBG PCO2 40.3 mmHg (41.0-51.0); VBG PH 7.15 U (7.32-7.42); VBG PO2 69.8 mmHg (25.0-40.0); VBG Total CO2 15.1 mmol/L (25.0-29.0)
[2022-06-04 15:08] LABS: Basophils # (Auto) 0.06 K/mcL (0.00-0.30); Basophils % (Auto) 0.5 % (0.0-2.0); Eosinophils # (Auto) 0 K/mcL (0.00-0.70); Eosinophils % (Auto) 0 % (0.0-7.0); Hematocrit 32.7 % (40.1-51.0); Hemoglobin 9.6 g/dL (13.7-17.5); Lymphocytes # (Auto) 0.61 K/mcL (1.50-4.80); Lymphocytes % (Auto) 4.6 % (15.5-49.0); Mean Cell Volume 90.3 fL (80.0-100.0); Mean Corpuscular HGB Conc 29.4 g/dL (31.0-36.0); Mean Platelet Volume 11.9 fL (8.8-12.5); Monocytes # (Auto) 0.62 K/mcL (0.10-0.90); Monocytes % (Auto) 4.7 % (1.0-12.0); Neutrophils % (Auto) 89.5 % (38.0-78.0); Platelet Count 321 K/mcL (140-440); RBC 3.62 M/mcL (4.63-6.08); Red Cell Distribution Width 14.9 % (11.5-14.5); WBC 13.2 K/mcL (4.5-11.0)
[2022-06-04 15:28] LABS: Alcohol, Blood < 10.0 mg/dL; Alcohol,Blood < 0.010 gm/dL (<0.010)
[2022-06-04] MEDS ORDERED: INSULIN REGULAR, HUMAN 1 UNIT/0.01 ML UNIT IV ONE (15:51)
[2022-06-04 16:14] LABS: Beta Hydroxybutyrate 13.25 mmol/L (<0.27)
--- NOTE | 2022-06-04 16:41 | XRay Report ---
CLINICAL INFORMATION: Seizure COMPARISON: 05/18/2022. TECHNIQUE: Portable FINDINGS: Port-A-Cath in stable satisfactory position. The heart size, mediastinum and pulmonary vessels are unremarkable. The lungs are clear. There are no effusions. The bones and soft tissues are within normal limits. IMPRESSION: Normal chest. Interpreted and Authenticated by: Demetrius Smart 06/04/22
[2022-06-04] MEDS: INSULIN REGULAR, HUMAN 50 UNIT in 0.9 % SODIUM CHLORIDE 99.5 ML IV SCH (16:45)
[2022-06-04 16:52] LABS: Appearance,Urine CLEAR (Clear); Bilirubin,Urine NEGATIVE (Negative); Color,Urine LT. YELLOW; Culture Indicated,Urine No; Glucose,Urine (UA) >=1000 mg/dL (Negative); Ketones,Urine 15 mg/dL (Negative); Leukocyte Esterase,Urine NEGATIVE /uL (Negative); Nitrate,Urine NEGATIVE (Negative); PH,Urine 5.5 (5.0-9.0); Protein,Urine 100 mg/dL (Negative); Urine Blood TRACE-LYSED ery/mcL (Negative); Urine Hyaline Cast 1 /lph (0-2); Urine RBC < 1 /hpf (0-3); Urine Squamous Epithelial Cell 0 /hpf (0-4); Urine WBC 2 /hpf (0-4); Urobilinogen,Urine Normal
[2022-06-04] MEDS ORDERED: ONDANSETRON 4 MG/2 ML VIAL IV ONE ×2 (16:53→19:11)
[2022-06-04 17:11] LABS: POC Blood Urea Nitrogen 92 (6-20); POC Chloride 79 (96-108); POC Creatinine 5.6 (0.6-1.2); POC Glucose, Random > 700 (70-105); POC Sodium 124 (133-145)
[2022-06-04 17:13] LABS: Amphetamine Screen,Urine None detected; Barbiturate Screen,Urine None detected; Benzodiazepines Screen,Urine None detected; Cannabinoid Screen,Urine Suspect Positive; Cocaine Screen,Urine None detected; Opiate Screen,Urine None detected; Oxycodone, Urine Screen None detected; Phencyclidine Screen,Urine None detected
--- NOTE | 2022-06-04 17:59 | Nephrology Consult Note ---
HPI Date of Consult Consult Date: 06/04/22 Requesting physician: Muna Smith Primary Care Provider: Flo Peña MD Consult Narrative Patient Information: Note initiated : 06/04/22 at 5:56 pm Patient: Mauri Levine 36 y/o M admitted on for High blood sugar, seizure. Chief Complaint: Seizure Mauri Levine is a 36-year-old male with diabetes mellitus type 1, chronic kidney disease stage 4, hypertension brought to the [facility] ED after a tonic-clonic seizure. The patient's mother reported that the patient was confused this morning and refused to go to be seen. He later became unresponsive and it was found that his insulin pump was . EMS witnessed a second tonic-clonic seizure while en route. Patient was unresponsive upon arrival to the emergency department. In ED, labs were significant for sodium 124, creatinine 5.6, potassium 6.7, CO2 16, glucose >700. He was treated with IVF, insulin bolus of 7u and drip of 7u/hr initiated. Nephrology consultation requested for acute kidney injury. Chief complaint: Seizure Reason for consult: Acute kidney injury on chronic kidney disease stage 4 cc:: CC: Review of Systems ROS unobtainable: due to mental status PFSH PFSH All Active Problems (Updated 06/04/22 @ 17:57 by Heriberto Yadav MD) Acute worsening of stage 4 chronic kidney disease (Acute) Testosterone deficiency (Chronic) Nausea and vomiting (Chronic) GERD (gastroesophageal reflux disease) (Chronic) Other hammer toe(s) (acquired), left foot (Chronic) Hypertension, essential (Chronic) Hyperlipidemia (Chronic) History of neuroleptic malignant syndrome (Chronic) Dehydration (Chronic) Drug-induced nausea and vomiting (Acute) Uncontrolled type 1 diabetes mellitus with diabetic nephropathy, with long-term current use of insulin (Chronic) Cyclic vomiting syndrome (Chronic) Type 1 diabetes mellitus with stage 3 chronic kidney disease and hypertension (Chronic) Marijuana use, continuous (Chronic) CKD (chronic kidney disease) (Acute) Nephrotic range proteinuria (Chronic) Controlled type 1 diabetes mellitus with chronic kidney disease (Chronic) Port-A-Cath in place (Acute) Diabetic gastroparesis associated with type 1 diabetes mellitus (Chronic) Diabetic neuropathy associated with type 1 diabetes mellitus (Chronic) Diabetic retinopathy associated with type 1 diabetes mellitus (Chronic) Anxiety (Chronic) Back pain (Chronic) Physical deconditioning (Chronic) Malnutrition (Chronic) Acute dehydration (Acute) Acute hypokalemia (Acute) QT prolongation (Acute) Dehydration (Acute) No-show for appointment (Acute) Intractable cyclical vomiting with nausea (Acute) Diabetic gastroparesis (Chronic) ROSALIO (acute kidney injury) (Acute) Hyperglycemia (Acute) Dehydration (Acute) Major depressive disorder, recurrent (Chronic) Generalized anxiety disorder (Chronic) Trauma and stressor-related disorder (Chronic) Diabetic gastroparesis (Acute) Nausea & vomiting (Acute) Acute dehydration (Acute) Ketosis (Acute) Uncontrolled diabetes mellitus (Acute) DKA (diabetic ketoacidosis) (Acute) Hyperosmolar hyperglycemic state (HHS) (Acute) Diabetic gastroparesis (Acute) Metabolic alkalosis (Acute) Stage 2 acute kidney injury (Acute) Hyponatremia (Acute) DKA (diabetic ketoacidosis) (Acute) Has multiple sexual partners (Acute) Hyperosmolar hyperglycemic state (HHS) (Acute) Acute hypokalemia (Acute) ROSALIO (acute kidney injury) (Acute) Nausea & vomiting (Acute) Hypochloremia (Acute) Alkalosis (Acute) Acute renal failure superimposed on stage 3a chronic kidney disease (Acute) Metabolic alkalosis (Acute) Altered mental status (Acute) Depression (Acute) Acute hyperglycemia (Acute) Nausea & vomiting (Acute) Seizures (Acute) Abnormal CT of brain (Acute) Sepsis (Acute) Hyponatremia (Acute) Pneumonia (Acute) Acute renal failure (Acute) Hypokalemia (Acute) Diabetic gastroparesis (Acute) Diabetic gastroparesis (Acute) CKD stage G3b/A3, GFR 30-44 and albumin creatinine ratio >300 mg/g (Acute) Renal failure (ARF), acute on chronic (Acute) ROSALIO (acute kidney injury) (Acute) Acute hypokalemia (Acute) Acidosis (Acute) Acid-base disorder, mixed (Acute) Medical History Abdominal pain, epigastric Abnormal CT of brain Altered mental status Anxiety Back pain Chronic ulcer of left foot Coffee ground emesis Depression Diabetes mellitus type I Age 12, With foot ulcer Diabetic gastroparesis associated with type 1 diabetes mellitus Diabetic neuropathy associated with type 1 diabetes mellitus Diabetic peripheral neuropathy Diabetic retinopathy associated with type 1 diabetes mellitus DKA, type 1 Esophageal candidiasis Gastroenteritis Gastroparesis due to DM GERD (gastroesophageal reflux disease) Hallux valgus (acquired), left foot Has multiple sexual partners History of neuroleptic malignant syndrome To compazine (prochlorperazine). Tolerates promethazine without issue Hyperlipidemia Hypertension, essential labile due to unpredictable Rx absorption with gastroparesis and propensity for dehydration Hold captopril if persistent vomiting occurs or bp less than 120/80 stop coreg and nifedipine Continue clonidine patch#1 Labetalol IV PRN Hypokalemia Connie-Byrne tear Malnutrition Marijuana use, continuous Nausea and vomiting Non-pressure chronic ulcer of other part of left foot limited to breakdown of skin Other hammer toe(s) (acquired), left foot Peripheral autonomic neuropathy due to DM Physical deconditioning Seizures Sepsis Tardive dyskinesia due to metoclopramide (Reglan) Testosterone deficiency Surgical History History of hand surgery Finger repair History of toe surgery left hallux Family History Mother Atrial fibrillation Essential hypertension Sister Malignant neoplasm of female breast Maternal Grandfather Malignant neoplasm of colon Recorded 11/12/10 Father Essential hypertension Other Adopted DKA, type 1 Social History adopted: Yes household members: family housing: other details: 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 marital status: single occupational status: disabled occupation: On disability since 2016 physical activity: walking smoking status: Former smoker quit date: 02/12/11 alcohol intake frequency: former alcohol drinker substance use type: former substance user seatbelt use: always MEDS/ALLERGIES Home Medications and Allergies Home Medications Medication Instructions Recorded Confirmed Type Dexcom sensor & monitor #1 08/27/21 05/25/22 Rx acetone (urine) test (Ketone Urine #100 09/10/21 05/25/22 Rx Test strips) blood sugar diagnostic (Blood #500 09/10/21 05/25/22 Rx Glucose Test strips) blood-glucose meter #1 09/10/21 05/25/22 Rx lancets #500 09/10/21 05/25/22 Rx insulin aspart U-100 100 unit/mL See Rx Instructions subcut TID #60 01/12/22 05/25/22 Rx subcutaneous solution (Novolog mL U-100 Insulin aspart) insulin syringes (disposable) 1 mL #500 ea 01/12/22 05/25/22 Rx venlafaxine 75 mg capsule,extended 225 mg PO QAM #90 caps 03/09/22 05/25/22 Rx release 24 hr mirtazapine 15 mg disintegrating 15 mg PO HS #90 tabs 03/11/22 05/25/22 Rx tablet promethazine 25 mg rectal 25 mg MT Q6H PRN nausea and 04/09/22 05/25/22 Rx suppository (Promethegan) vomiting #12 ea captopril 12.5 mg tablet 12.5 mg PO TID ckd, HTN, DM #90 04/20/22 05/25/22 Rx tabs glucagon 3 mg/actuation nasal 3 mg intranasal ONCE PRN 04/20/22 05/25/22 Rx spray (Baqsimi) hypoglycemia #1 ea ondansetron 4 mg disintegrating 4 mg PO Q8H cyclic vomiting #120 04/21/22 05/25/22 Rx tablet tabs clonidine 0.2 mg/24 hr weekly 1 patch transdermal QWEEK #4 ea 04/26/22 05/25/22 Rx transdermal patch fluoxetine 20 mg capsule 20 mg PO QDAY #90 caps 05/04/22 05/25/22 Rx famotidine 20 mg tablet 10 mg PO BID #90 tabs 05/12/22 05/25/22 Rx carvedilol 6.25 mg tablet 1 tab PO BID 05/18/22 05/25/22 History nifedipine 30 mg tablet,extended 1 tab PO QDAY 05/18/22 05/25/22 History release 24 hr sucralfate 1 gram tablet (Carafate) 1 g PO BID #70 tabs 05/28/22 Rx Allergies Allergy/AdvReac Type Severity Reaction Status Date / Time NSAIDS (Non-Steroidal Allergy Unknown Unknown Verified 06/04/22 13:31 Anti-Inflamma metoclopramide [From Reglan] AdvReac Mild Agitated Verified 06/04/22 13:31 prochlorperazine AdvReac Mild "My whole Verified 06/04/22 13:31 [From Compazine] body freaks out." silver AdvReac Mild dystonic Verified 06/04/22 13:31 IV iodine contrast Allergy Unknown Unknown Uncoded 05/25/22 10:33 Physical Examination Vital Signs Vital signs: Temp Pulse Resp BP Pulse Ox O2 Del Method 97.3 F 100 H 23 H 131/75 100 06/04/22 13:21 06/04/22 17:16 06/04/22 14:31 06/04/22 17:16 06/04/22 17:16 06/04/22 13:33 General Appearance General appearance: appears started age, chronically ill and comatose EENT EENT: mucous membranes dry Respiratory Respiratory: clear Cardiovascular Cardiology: no edema, regular rate and regular rhythm Gastrointestinal Gastrointestinal: no tenderness Integumentary Integumentary: no rash Neurologic Neurologic: confused and obtunded Results Lab Results Result Diagrams: 06/04/22 14:54 06/04/22 14:35 Lab results: Most recent lab results Magnesium 3.2 mg/dL (1.6-2.5) H 06/04/22 14:35 A/P Assessment and plan (1) Acute worsening of stage 4 chronic kidney disease: Assessment and plan: Mauri Levine is a 36-year-old male with diabetes mellitus type 1, chronic kidney disease stage 4, hypertension brought to the [facility] ED after a tonic-clonic seizure. The patient's mother reported that the patient was confused this morning and refused to go to be seen. He later became unresponsive and it was found that his insulin pump was . EMS witnessed a second tonic-clonic seizure while en route. Patient was unresponsive upon arrival to the emergency department. In ED, labs were significant for sodium 124, creatinine 5.6, potassium 6.7, CO2 16, glucose >700. He was treated with IVF, insulin bolus of 7u and drip of 7u/hr initiated. Nephrology consultation requested for acute kidney injury. Acute kidney injury associated with DKA on chronic kidney disease stage 4 with hyperkalemia, metabolic acidosis and hyponatremia, present on arrival. The patient had multiple recent admissions, most recent 2 weeks ago for a similar presentation. He did not require hemodialysis previously and recovered with IVF and DKA treatment. Workup: Urinalysis on 06/04/22: Yellow, Clear, pH 5.5, SG 1.020, protein 100, blood trace-lysed, leukocyte esterase negative. Previous workup: Urine random total protein/creatinine on 07/07/21: 1,110 mg/g creatinine. Renal US on 08/16/21: Hyperechoic kidneys compatible medical renal disease. Prostate is normal size-volume 28 cc. Recommendations/Plan: I recommend transfer to higher level of care for critical care and acute hemodialysis. DKA protocol with IVF and IV insulin would not be adequate treatment alone without hemodialysis. I discussed and informed his mother. I also discussed with the ED provider and hospitalist. Status: Acute Time Spent With Patient Time: Total time spent is greater than 50% in coordination of care (as documented) at patient's floor/unit and/or counseling patient:
[2022-06-04 18:08] LABS: ABG Methemoglobin 0.3 % (0.4-1.5); Total Hemoglobin 10.6 gm/Dl (13.5-16.5); VBG Base Excess -12 (-2-3); VBG HCO3 14.9 mmol/L (24.0-28.0); VBG Oxygen Saturation 93.6 % (40.0-70.0); VBG PCO2 35.9 mmHg (41.0-51.0); VBG PH 7.24 U (7.32-7.42); VBG PO2 127.4 mmHg (25.0-40.0)
--- NOTE | 2022-06-04 18:09 | Internal Med History&Physical ---
HPI History of Present Illness Patient information: Note initiated : 06/04/22 at 6:03 pm Service Date, if different from initiated Date: [] Patient: Mauri Levine 36 y/o M admitted on for High blood sugar, seizure. Chief Complaint: [] History of present illness: Mr. Levine is a 36-year-old male with a history of type 1 diabetes mellitus, hypertension, chronic kidney disease stage IIIb-IV, gastroparesis status post gastric pacemaker brought to the emergency department by EMS for altered mental status and seizures for which she received Versed by EMS. In the emergency department, the patient was found to be in diabetic ketoacidosis and have an acute on chronic kidney disease injury. Potassium was initially 6.7 and improved to 4.0 after the patient was started on an insulin infusion and received a IV fluid bolus. The patient was discussed with the rounding machine tender on- call, Dr. Yadav, who felt that the patient could be managed at [facility]. Additionally, the patient does have a mild leukocytosis. Chest x- ray did not reveal any infiltrates. Hospital medicine was then consulted for admission. The patient is unable to provide a history due to lethargy secondary to diabetic ketoacidosis. Collateral information on the patient's mother was obtained. She said that the patient's insulin pump failed a few days ago. Apparently this issue has occurred before with the patient's insulin pump. Review of systems: Unable to obtain due to altered mental status. Physical exam Head: Atraumatic, normal inspection. Eyes: normal appearance, no scleral icterus. Neck: full ROM Respiratory: no respiratory distress. Cardiovascular: Port in right upper chest, regular tachycardia. GI/Abdominal: soft, nontender, no guarding. Extremities: Peripheral IVs in bilateral lower extremities, full range of motion, nontender. Neurological: CN II-XII intact, intact motor, intact sensation. Psychiatric: Lethargic Skin: Scattered mild wounds do not appear infected. PFSH PFSH All Active Problems (Updated 06/04/22 @ 17:57 by Heriberto Yadav MD) Acute worsening of stage 4 chronic kidney disease (Acute) Testosterone deficiency (Chronic) Nausea and vomiting (Chronic) GERD (gastroesophageal reflux disease) (Chronic) Other hammer toe(s) (acquired), left foot (Chronic) Hypertension, essential (Chronic) Hyperlipidemia (Chronic) History of neuroleptic malignant syndrome (Chronic) Dehydration (Chronic) Drug-induced nausea and vomiting (Acute) Uncontrolled type 1 diabetes mellitus with diabetic nephropathy, with long-term current use of insulin (Chronic) Cyclic vomiting syndrome (Chronic) Type 1 diabetes mellitus with stage 3 chronic kidney disease and hypertension (Chronic) Marijuana use, continuous (Chronic) CKD (chronic kidney disease) (Acute) Nephrotic range proteinuria (Chronic) Controlled type 1 diabetes mellitus with chronic kidney disease (Chronic) Port-A-Cath in place (Acute) Diabetic gastroparesis associated with type 1 diabetes mellitus (Chronic) Diabetic neuropathy associated with type 1 diabetes mellitus (Chronic) Diabetic retinopathy associated with type 1 diabetes mellitus (Chronic) Anxiety (Chronic) Back pain (Chronic) Physical deconditioning (Chronic) Malnutrition (Chronic) Acute dehydration (Acute) Acute hypokalemia (Acute) QT prolongation (Acute) Dehydration (Acute) No-show for appointment (Acute) Intractable cyclical vomiting with nausea (Acute) Diabetic gastroparesis (Chronic) ROSALIO (acute kidney injury) (Acute) Hyperglycemia (Acute) Dehydration (Acute) Major depressive disorder, recurrent (Chronic) Generalized anxiety disorder (Chronic) Trauma and stressor-related disorder (Chronic) Diabetic gastroparesis (Acute) Nausea & vomiting (Acute) Acute dehydration (Acute) Ketosis (Acute) Uncontrolled diabetes mellitus (Acute) DKA (diabetic ketoacidosis) (Acute) Hyperosmolar hyperglycemic state (HHS) (Acute) Diabetic gastroparesis (Acute) Metabolic alkalosis (Acute) Stage 2 acute kidney injury (Acute) Hyponatremia (Acute) DKA (diabetic ketoacidosis) (Acute) Has multiple sexual partners (Acute) Hyperosmolar hyperglycemic state (HHS) (Acute) Acute hypokalemia (Acute) ROSALIO (acute kidney injury) (Acute) Nausea & vomiting (Acute) Hypochloremia (Acute) Alkalosis (Acute) Acute renal failure superimposed on stage 3a chronic kidney disease (Acute) Metabolic alkalosis (Acute) Altered mental status (Acute) Depression (Acute) Acute hyperglycemia (Acute) Nausea & vomiting (Acute) Seizures (Acute) Abnormal CT of brain (Acute) Sepsis (Acute) Hyponatremia (Acute) Pneumonia (Acute) Acute renal failure (Acute) Hypokalemia (Acute) Diabetic gastroparesis (Acute) Diabetic gastroparesis (Acute) CKD stage G3b/A3, GFR 30-44 and albumin creatinine ratio >300 mg/g (Acute) Renal failure (ARF), acute on chronic (Acute) ROSALIO (acute kidney injury) (Acute) Acute hypokalemia (Acute) Acidosis (Acute) Acid-base disorder, mixed (Acute) Medical History Abdominal pain, epigastric Abnormal CT of brain Altered mental status Anxiety Back pain Chronic ulcer of left foot Coffee ground emesis Depression Diabetes mellitus type I Age 12, With foot ulcer Diabetic gastroparesis associated with type 1 diabetes mellitus Diabetic neuropathy associated with type 1 diabetes mellitus Diabetic peripheral neuropathy Diabetic retinopathy associated with type 1 diabetes mellitus DKA, type 1 Esophageal candidiasis Gastroenteritis Gastroparesis due to DM GERD (gastroesophageal reflux disease) Hallux valgus (acquired), left foot Has multiple sexual partners History of neuroleptic malignant syndrome To compazine (prochlorperazine). Tolerates promethazine without issue Hyperlipidemia Hypertension, essential labile due to unpredictable Rx absorption with gastroparesis and propensity for dehydration Hold captopril if persistent vomiting occurs or bp less than 120/80 stop coreg and nifedipine Continue clonidine patch#1 Labetalol IV PRN Hypokalemia Connie-Byrne tear Malnutrition Marijuana use, continuous Nausea and vomiting Non-pressure chronic ulcer of other part of left foot limited to breakdown of skin Other hammer toe(s) (acquired), left foot Peripheral autonomic neuropathy due to DM Physical deconditioning Seizures Sepsis Tardive dyskinesia due to metoclopramide (Reglan) Testosterone deficiency Surgical History History of hand surgery Finger repair History of toe surgery left hallux Family History Mother Atrial fibrillation Essential hypertension Sister Malignant neoplasm of female breast Maternal Grandfather Malignant neoplasm of colon Recorded 11/12/10 Father Essential hypertension Other Adopted DKA, type 1 Social History adopted: Yes household members: family housing: other details: 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 marital status: single occupational status: disabled occupation: On disability since 2016 physical activity: walking smoking status: Former smoker quit date: 02/12/11 alcohol intake frequency: former alcohol drinker substance use type: former substance user seatbelt use: always MEDS/ALLERGIES Home Medications and Allergies Home Medications Medication Instructions Recorded Confirmed Type Dexcom sensor & monitor #1 ea 08/27/21 05/25/22 Rx acetone (urine) test (Ketone Urine #100 ea 09/10/21 05/25/22 Rx Test strips) blood sugar diagnostic (Blood #500 ea 09/10/21 05/25/22 Rx Glucose Test strips) blood-glucose meter #1 ea 09/10/21 05/25/22 Rx lancets #500 ea 09/10/21 05/25/22 Rx insulin aspart U-100 100 unit/mL See Rx Instructions subcut TID #60 01/12/22 05/25/22 Rx subcutaneous solution (Novolog mL U-100 Insulin aspart) insulin syringes (disposable) 1 mL #500 ea 01/12/22 05/25/22 Rx venlafaxine 75 mg capsule,extended 225 mg PO QAM #90 caps 03/09/22 05/25/22 Rx release 24 hr mirtazapine 15 mg disintegrating 15 mg PO HS #90 tabs 03/11/22 05/25/22 Rx tablet promethazine 25 mg rectal 25 mg NM Q6H PRN nausea and 04/09/22 05/25/22 Rx suppository (Promethegan) vomiting #12 ea captopril 12.5 mg tablet 12.5 mg PO TID ckd, HTN, DM #90 04/20/22 05/25/22 Rx tabs glucagon 3 mg/actuation nasal 3 mg intranasal ONCE PRN 04/20/22 05/25/22 Rx spray (Baqsimi) hypoglycemia #1 ea ondansetron 4 mg disintegrating 4 mg PO Q8H cyclic vomiting #120 04/21/22 05/25/22 Rx tablet tabs clonidine 0.2 mg/24 hr weekly 1 patch transdermal QWEEK #4 ea 04/26/22 05/25/22 Rx transdermal patch fluoxetine 20 mg capsule 20 mg PO QDAY #90 caps 05/04/22 05/25/22 Rx famotidine 20 mg tablet 10 mg PO BID #90 tabs 05/12/22 05/25/22 Rx carvedilol 6.25 mg tablet 1 tab PO BID 05/18/22 05/25/22 History nifedipine 30 mg tablet,extended 1 tab PO QDAY 05/18/22 05/25/22 History release 24 hr sucralfate 1 gram tablet (Carafate) 1 g PO BID #70 tabs 05/28/22 Rx Allergies Allergy/AdvReac Type Severity Reaction Status Date / Time NSAIDS (Non-Steroidal Allergy Unknown Unknown Verified 06/04/22 13:31 Anti-Inflamma metoclopramide [From Reglan] AdvReac Mild Agitated Verified 06/04/22 13:31 prochlorperazine AdvReac Mild "My whole Verified 06/04/22 13:31 [From Compazine] body freaks out." silver AdvReac Mild dystonic Verified 06/04/22 13:31 IV iodine contrast Allergy Unknown Unknown Uncoded 05/25/22 10:33 EXAM Constitutional Vitals: Temp Pulse Resp BP Pulse Ox O2 Del Method 97.3 F 100 H 23 H 131/75 100 06/04/22 13:21 06/04/22 17:16 06/04/22 14:31 06/04/22 17:16 06/04/22 17:16 06/04/22 13:33 DATA Data Completed and Pending Labs: Labs from last 24 hours 06/04/22 06/04/22 06/04/22 17:44 17:02 16:35 WBC RBC Hgb Hct POC Hct 33.0 L MCV MCH MCHC RDW Plt Count MPV Immature Gran % (Auto) Neut % (Auto) Lymph % (Auto) [place] % (Auto) Eos % (Auto) Baso % (Auto) Lymph # (Auto) [place] # (Auto) Eos # (Auto) Baso # (Auto) Immature Gran # Absolute Neutrophils ABG Methemoglobin Pending VBG pH Pending POC VBG pH VBG pCO2 Pending POC VBG pCO2 at Temp VBG pO2 Pending POC VBG pO2 VBG HCO3 Pending POC VBG HCO3 VBG Total CO2 Pending POC VBG Total CO2 VBG O2 Saturation Pending POC Venous O2 Sat VBG Base Excess Pending POC VBG Base Excess VBG Lactic Acid Carboxyhemoglobin Pending Total Hemoglobin Pending POC Sodium 124 L Sodium POC Potassium 4.0 Potassium POC Chloride 79 L Chloride Carbon Dioxide POC Total CO2 16.0 L Anion Gap POC BUN 92 H POC Creatinine 5.6 H* POC Glucose > 700 H* POC WB Ioniz Calcium 0.90 L Magnesium Beta-Hydroxybutyrate Urine Color Lt. yellow Urine Appearance Clear Urine pH 5.5 Ur Specific Nenzel 1.020 Urine Protein 100 A Urine Glucose (UA) >=1000 A Urine Ketones 15 A Urine Occult Blood Trace-lysed A Urine Nitrate Negative Urine Bilirubin Negative Urine Urobilinogen Normal Ur Leukocyte Esterase Negative Urine RBC < 1 Urine WBC 2 Ur Squamous Epith Cells 0 Urine Bacteria None Hyaline Casts 1 Ur Culture Indicated? No Urine Opiates Screen Ur Opiates Confirm Ur Oxycodone Screen U Oxycod/Oxymor Confirm Urine Methadone Screen Ur Methadone Confirm Acetaminophen Ur Barbiturates Screen Ur Barbiturate Confirm Ur Phencyclidine Scrn Urine PCP Confirm Ur Amphetamines Screen U Amphetamines Confirm U Benzodiazepines Scrn Ur Benzodiazepine, Qnt Urine Cocaine Screen Urine Cocaine Confirm U Cannabinoids Confirm U Marijuana (THC) Screen Ethyl Alcohol mg/dL Ethyl Alcohol g/dL 06/04/22 06/04/22 06/04/22 16:35 15:05 14:54 WBC 13.2 H RBC 3.62 L Hgb 9.6 L Hct 32.7 L POC Hct MCV 90.3 MCH 26.5 MCHC 29.4 L RDW 14.9 H Plt Count 321 MPV 11.9 Immature Gran % (Auto) 0.7 H Neut % (Auto) 89.5 H Lymph % (Auto) 4.6 L [place] % (Auto) 4.7 Eos % (Auto) 0 Baso % (Auto) 0.5 Lymph # (Auto) 0.61 L [place] # (Auto) 0.62 Eos # (Auto) 0 Baso # (Auto) 0.06 Immature Gran # 0.09 H Absolute Neutrophils 11.80 H ABG Methemoglobin VBG pH POC VBG pH 7.23 L VBG pCO2 POC VBG pCO2 at Temp 38.9 L VBG pO2 POC VBG pO2 47 H VBG HCO3 POC VBG HCO3 16.2 L VBG Total CO2 POC VBG Total CO2 17.0 L VBG O2 Saturation POC Venous O2 Sat 75.0 H VBG Base Excess POC VBG Base Excess -11.0 L VBG Lactic Acid 2.5 H Carboxyhemoglobin Total Hemoglobin POC Sodium Sodium POC Potassium Potassium POC Chloride Chloride Carbon Dioxide POC Total CO2 Anion Gap POC BUN POC Creatinine POC Glucose POC WB Ioniz Calcium Magnesium Beta-Hydroxybutyrate Urine Color Urine Appearance Urine pH Ur Specific Nenzel Urine Protein Urine Glucose (UA) Urine Ketones Urine Occult Blood Urine Nitrate Urine Bilirubin Urine Urobilinogen Ur Leukocyte Esterase Urine RBC Urine WBC Ur Squamous Epith Cells Urine Bacteria Hyaline Casts Ur Culture Indicated? Urine Opiates Screen None detected Ur Opiates Confirm TNP Ur Oxycodone Screen None detected U Oxycod/Oxymor Confirm TNP Urine Methadone Screen None detected Ur Methadone Confirm TNP Acetaminophen Ur Barbiturates Screen None detected Ur Barbiturate Confirm TNP Ur Phencyclidine Scrn None detected Urine PCP Confirm TNP Ur Amphetamines Screen None detected U Amphetamines Confirm TNP U Benzodiazepines Scrn None detected Ur Benzodiazepine, Qnt TNP Urine Cocaine Screen None detected Urine Cocaine Confirm TNP U Cannabinoids Confirm Pending U Marijuana (THC) Screen Suspect positive A Ethyl Alcohol mg/dL Ethyl Alcohol g/dL 06/04/22 06/04/22 06/04/22 14:35 14:35 14:34 WBC RBC Hgb Hct POC Hct MCV MCH MCHC RDW Plt Count MPV Immature Gran % (Auto) Neut % (Auto) Lymph % (Auto) [place] % (Auto) Eos % (Auto) Baso % (Auto) Lymph # (Auto) [place] # (Auto) Eos # (Auto) Baso # (Auto) Immature Gran # Absolute Neutrophils ABG Methemoglobin 0.3 L VBG pH 7.15 L* POC VBG pH VBG pCO2 40.3 L POC VBG pCO2 at Temp VBG pO2 69.8 H POC VBG pO2 VBG HCO3 13.8 L POC VBG HCO3 VBG Total CO2 15.1 L POC VBG Total CO2 VBG O2 Saturation 86.9 H POC Venous O2 Sat VBG Base Excess -14 L POC VBG Base Excess VBG Lactic Acid Carboxyhemoglobin 2.5 H Total Hemoglobin 11.2 L POC Sodium Sodium 121 L POC Potassium Potassium 6.7 H* POC Chloride Chloride 64 L Carbon Dioxide 14 L POC Total CO2 Anion Gap 43.0 H POC BUN POC Creatinine POC Glucose POC WB Ioniz Calcium Magnesium 3.2 H Beta-Hydroxybutyrate 13.25 H Urine Color Urine Appearance Urine pH Ur Specific Nenzel Urine Protein Urine Glucose (UA) Urine Ketones Urine Occult Blood Urine Nitrate Urine Bilirubin Urine Urobilinogen Ur Leukocyte Esterase Urine RBC Urine WBC Ur Squamous Epith Cells Urine Bacteria Hyaline Casts Ur Culture Indicated? Urine Opiates Screen Ur Opiates Confirm Ur Oxycodone Screen U Oxycod/Oxymor Confirm Urine Methadone Screen Ur Methadone Confirm Acetaminophen Ur Barbiturates Screen Ur Barbiturate Confirm Ur Phencyclidine Scrn Urine PCP Confirm Ur Amphetamines Screen U Amphetamines Confirm U Benzodiazepines Scrn Ur Benzodiazepine, Qnt Urine Cocaine Screen Urine Cocaine Confirm U Cannabinoids Confirm U Marijuana (THC) Screen Ethyl Alcohol mg/dL < 10.0 Ethyl Alcohol g/dL < 0.010 06/04/22 06/04/22 14:34 14:34 WBC RBC Hgb Hct POC Hct MCV MCH MCHC RDW Plt Count MPV Immature Gran % (Auto) Neut % (Auto) Lymph % (Auto) [place] % (Auto) Eos % (Auto) Baso % (Auto) Lymph # (Auto) [place] # (Auto) Eos # (Auto) Baso # (Auto) Immature Gran # Absolute Neutrophils ABG Methemoglobin VBG pH POC VBG pH VBG pCO2 POC VBG pCO2 at Temp VBG pO2 POC VBG pO2 VBG HCO3 POC VBG HCO3 VBG Total CO2 POC VBG Total CO2 VBG O2 Saturation POC Venous O2 Sat VBG Base Excess POC VBG Base Excess VBG Lactic Acid Carboxyhemoglobin Total Hemoglobin POC Sodium Sodium POC Potassium Potassium POC Chloride Chloride Carbon Dioxide POC Total CO2 Anion Gap POC BUN POC Creatinine POC Glucose POC WB Ioniz Calcium Magnesium TNP Beta-Hydroxybutyrate Urine Color Urine Appearance Urine pH Ur Specific N[place]el Urine Protein Urine Glucose (UA) Urine Ketones Urine Occult Blood Urine Nitrate Urine Bilirubin Urine Urobilinogen Ur Leukocyte Esterase Urine RBC Urine WBC Ur Squamous Epith Cells Urine Bacteria Hyaline Casts Ur Culture Indicated? Urine Opiates Screen Ur Opiates Confirm Ur Oxycodone Screen U Oxycod/Oxymor Confirm Urine Methadone Screen Ur Methadone Confirm Acetaminophen < 5.0 Ur Barbiturates Screen Ur Barbiturate Confirm Ur Phencyclidine Scrn Urine PCP Confirm Ur Amphetamines Screen U Amphetamines Confirm U Benzodiazepines Scrn Ur Benzodiazepine, Qnt Urine Cocaine Screen Urine Cocaine Confirm U Cannabinoids Confirm U Marijuana (THC) Screen Ethyl Alcohol mg/dL Ethyl Alcohol g/dL A/P Narrative A/P Narrative: Assessment: 36-year-old male with a history of type 1 diabetes mellitus, hypertension, chronic kidney disease stage IIIb-IV, gastroparesis status post gastric pacemaker admitted for diabetic ketoacidosis and acute on chronic kidney disease injury. The cause for DKA is felt to be secondary to insulin pump failure. #Combined metabolic acidosis secondary to DKA and ROSALIO on CKD #Diabetic ketoacidosis #Acute on chronic kidney disease injury #Leukocytosis likely stress-induced #Acute on chronic anemia #Encephalopathy secondary to metabolic acidosis #Resolved hyperkalemia #Type 1 diabetes mellitus #Essential hypertension #Gastroparesis status post gastric pacemaker #History of Port-A-Cath placement Plan -Insulin infusion per DKA protocol. -IV fluid with half NS for now, transition to D5 HALF NS when glucose is about 200. -Trend hemoglobin, renal function, electrolytes and VBG until labs stabilize. -Monitor urine output. -Replace electrolytes as needed. -Blood cultures x2. -Urinalysis with reflex to culture. -Transfuse RBC for hemoglobin less than 7 or symptomatic anemia. -Home medication reconciliation. -ekg monitor tech. -Seizure precautions. -N.p.o. until mental status improves. -If renal function does not improve will consult nephrology. -CODE STATUS: Full -DVT prophylaxis: Heparin SQ Time Spent With Patient Time: Total time spent is greater than 50% in coordination of care (as documented) at patient's floor/unit and/or counseling patient:
[2022-06-04 19:56] LABS: POC Blood Urea Nitrogen 74 (6-20); POC Calcium, Ionized 0.87 (1.16-1.32); POC Chloride 84 (96-108); POC Creatinine 5.7 (0.6-1.2); POC Glucose, Random > 700 (70-105); POC Potassium 3.8 (3.3-5.1); POC Sodium 129 (133-145)
[2022-06-04] MEDS ORDERED: LACTATED RINGERS 1,000 ML IV SCH (20:00)
[2022-06-04 20:01] LABS: POC Blood Urea Nitrogen 75 (6-20); POC Calcium, Ionized 0.87 (1.16-1.32); POC Chloride 85 (96-108); POC Creatinine 5.6 (0.6-1.2); POC Glucose, Random > 700 (70-105); POC Potassium 3.9 (3.3-5.1); POC Sodium 129 (133-145)
--- NOTE | 2022-06-04 20:39 | Internal Med History&Physical ---
HPI History of Present Illness Patient information: Note initiated : 06/04/22 at 8:34 pm Service Date, if different from initiated Date: [] Patient: Mauri Levine 36 y/o M admitted on for High blood sugar, seizure. Chief Complaint: [] History of present illness: Mr. 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 The patient is not able to provide a history due to lethargy from DKA. Per EMS report the patient had two seizures today which was the reason he was brought to the ED. He received Versed after the second seizure. It sounds like the patient's insulin pump developed a failure 2-3 days prior to admission. Nephrology was consulted for the ROSALIO and recommended transfer to a higher level of care which was attempted by the ED provider however the patient was refused. Hospital medicine was consulted for admission. After discussing the patient with nephrology and in light of the transfer denial the decision was made to admit the patient for management of DKA and follow renal function closely. If renal function does not improve the patient will need to be transferred to a higher level of care for acute renal replacement therapy. Review of systems: unable to obtain due to altered mental status Physical exam Head: Atraumatic, normal inspection. Eyes: normal appearance, no scleral icterus. Neck: full ROM Respiratory: Accessed port right chest, no respiratory distress Cardiovascular: Regular tachycardia, S1, S2. GI/Abdominal: soft, nontender, no guarding. Extremities: full range of motion, nontender. Neurological: CN II-XII intact, intact motor, intact sensation. Psychiatric: drowsy Skin: warm, normal color PFSH PFSH All Active Problems (Updated 06/04/22 @ 20:59 by Muna Smith PA-C) Acute worsening of stage 4 chronic kidney disease (Acute) Testosterone deficiency (Chronic) Nausea and vomiting (Chronic) GERD (gastroesophageal reflux disease) (Chronic) Other hammer toe(s) (acquired), left foot (Chronic) Hypertension, essential (Chronic) Hyperlipidemia (Chronic) History of neuroleptic malignant syndrome (Chronic) Dehydration (Chronic) Drug-induced nausea and vomiting (Acute) Uncontrolled type 1 diabetes mellitus with diabetic nephropathy, with long-term current use of insulin (Chronic) Cyclic vomiting syndrome (Chronic) Type 1 diabetes mellitus with stage 3 chronic kidney disease and hypertension (Chronic) Marijuana use, continuous (Chronic) CKD (chronic kidney disease) (Acute) Nephrotic range proteinuria (Chronic) Controlled type 1 diabetes mellitus with chronic kidney disease (Chronic) Port-A-Cath in place (Acute) Diabetic gastroparesis associated with type 1 diabetes mellitus (Chronic) Diabetic neuropathy associated with type 1 diabetes mellitus (Chronic) Diabetic retinopathy associated with type 1 diabetes mellitus (Chronic) Anxiety (Chronic) Back pain (Chronic) Physical deconditioning (Chronic) Malnutrition (Chronic) Acute dehydration (Acute) Acute hypokalemia (Acute) QT prolongation (Acute) Dehydration (Acute) No-show for appointment (Acute) Intractable cyclical vomiting with nausea (Acute) Diabetic gastroparesis (Chronic) ROSALIO (acute kidney injury) (Acute) Hyperglycemia (Acute) Dehydration (Acute) Major depressive disorder, recurrent (Chronic) Generalized anxiety disorder (Chronic) Trauma and stressor-related disorder (Chronic) Diabetic gastroparesis (Acute) Nausea & vomiting (Acute) Acute dehydration (Acute) Ketosis (Acute) Uncontrolled diabetes mellitus (Acute) DKA (diabetic ketoacidosis) (Acute) Hyperosmolar hyperglycemic state (HHS) (Acute) Diabetic gastroparesis (Acute) Metabolic alkalosis (Acute) Stage 2 acute kidney injury (Acute) Hyponatremia (Acute) DKA (diabetic ketoacidosis) (Acute) Has multiple sexual partners (Acute) Hyperosmolar hyperglycemic state (HHS) (Acute) Acute hypokalemia (Acute) ROSALIO (acute kidney injury) (Acute) Nausea & vomiting (Acute) Hypochloremia (Acute) Alkalosis (Acute) Acute renal failure superimposed on stage 3a chronic kidney disease (Acute) Metabolic alkalosis (Acute) Altered mental status (Acute) Depression (Acute) Acute hyperglycemia (Acute) Nausea & vomiting (Acute) Seizures (Acute) Abnormal CT of brain (Acute) Sepsis (Acute) Hyponatremia (Acute) Pneumonia (Acute) Acute renal failure (Acute) Hypokalemia (Acute) Diabetic gastroparesis (Acute) Diabetic gastroparesis (Acute) CKD stage G3b/A3, GFR 30-44 and albumin creatinine ratio >300 mg/g (Acute) Renal failure (ARF), acute on chronic (Acute) ROSALIO (acute kidney injury) (Acute) Acute hypokalemia (Acute) Acidosis (Acute) Acid-base disorder, mixed (Acute) Medical History Abdominal pain, epigastric Abnormal CT of brain Altered mental status Anxiety Back pain Chronic ulcer of left foot Coffee ground emesis Depression Diabetes mellitus type I Age 12, With foot ulcer Diabetic gastroparesis associated with type 1 diabetes mellitus Diabetic neuropathy associated with type 1 diabetes mellitus Diabetic peripheral neuropathy Diabetic retinopathy associated with type 1 diabetes mellitus DKA, type 1 Esophageal candidiasis Gastroenteritis Gastroparesis due to DM GERD (gastroesophageal reflux disease) Hallux valgus (acquired), left foot Has multiple sexual partners History of neuroleptic malignant syndrome To compazine (prochlorperazine). Tolerates promethazine without issue Hyperlipidemia Hypertension, essential labile due to unpredictable Rx absorption with gastroparesis and propensity for dehydration Hold captopril if persistent vomiting occurs or bp less than 120/80 stop coreg and nifedipine Continue clonidine patch#1 Labetalol IV PRN Hypokalemia Connie-Byrne tear Malnutrition Marijuana use, continuous Nausea and vomiting Non-pressure chronic ulcer of other part of left foot limited to breakdown of skin Other hammer toe(s) (acquired), left foot Peripheral autonomic neuropathy due to DM Physical deconditioning Seizures Sepsis Tardive dyskinesia due to metoclopramide (Reglan) Testosterone deficiency Surgical History History of hand surgery Finger repair History of toe surgery left hallux Family History Mother Atrial fibrillation Essential hypertension Sister Malignant neoplasm of female breast Maternal Grandfather Malignant neoplasm of colon Recorded 11/12/10 Father Essential hypertension Other Adopted DKA, type 1 Social History adopted: Yes household members: family housing: other details: 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 marital status: single occupational status: disabled occupation: On disability since 2017 physical activity: walking smoking status: Former smoker quit date: 02/12/11 alcohol intake frequency: former alcohol drinker substance use type: former substance user seatbelt use: always MEDS/ALLERGIES Home Medications and Allergies Home Medications Medication Instructions Recorded Confirmed Type Dexcom sensor & monitor #1 ea 08/27/21 05/25/22 Rx acetone (urine) test (Ketone Urine #100 ea 09/10/21 05/25/22 Rx Test strips) blood sugar diagnostic (Blood #500 ea 09/10/21 05/25/22 Rx Glucose Test strips) blood-glucose meter #1 ea 09/10/21 05/25/22 Rx lancets #500 ea 09/10/21 05/25/22 Rx insulin aspart U-100 100 unit/mL See Rx Instructions subcut TID #60 01/12/22 05/25/22 Rx subcutaneous solution (Novolog mL U-100 Insulin aspart) insulin syringes (disposable) 1 mL #500 ea 01/12/22 05/25/22 Rx venlafaxine 75 mg capsule,extended 225 mg PO QAM #90 caps 03/09/22 05/25/22 Rx release 24 hr mirtazapine 15 mg disintegrating 15 mg PO HS #90 tabs 03/11/22 05/25/22 Rx tablet promethazine 25 mg rectal 25 mg NV Q6H PRN nausea and 04/09/22 05/25/22 Rx suppository (Promethegan) vomiting #12 ea captopril 12.5 mg tablet 12.5 mg PO TID ckd, HTN, DM #90 04/20/22 05/25/22 Rx tabs glucagon 3 mg/actuation nasal 3 mg intranasal ONCE PRN 04/20/22 05/25/22 Rx spray (Baqsimi) hypoglycemia #1 ea ondansetron 4 mg disintegrating 4 mg PO Q8H cyclic vomiting #120 04/21/22 05/25/22 Rx tablet tabs clonidine 0.2 mg/24 hr weekly 1 patch transdermal QWEEK #4 ea 04/26/22 05/25/22 Rx transdermal patch fluoxetine 20 mg capsule 20 mg PO QDAY #90 caps 05/04/22 05/25/22 Rx famotidine 20 mg tablet 10 mg PO BID #90 tabs 05/12/22 05/25/22 Rx carvedilol 6.25 mg tablet 1 tab PO BID 05/18/22 05/25/22 History nifedipine 30 mg tablet,extended 1 tab PO QDAY 05/18/22 05/25/22 History release 24 hr sucralfate 1 gram tablet (Carafate) 1 g PO BID #70 tabs 05/28/22 Rx Allergies Allergy/AdvReac Type Severity Reaction Status Date / Time NSAIDS (Non-Steroidal Allergy Unknown Unknown Verified 06/04/22 13:31 Anti-Inflamma metoclopramide [From Reglan] AdvReac Mild Agitated Verified 06/04/22 13:31 prochlorperazine AdvReac Mild "My whole Verified 06/04/22 13:31 [From Compazine] body freaks out." silver AdvReac Mild dystonic Verified 06/04/22 13:31 IV iodine contrast Allergy Unknown Unknown Uncoded 05/25/22 10:33 EXAM Constitutional Vitals: Temp Pulse Resp BP Pulse Ox O2 Del Method 97.3 F 102 H 24 H 159/76 100 06/04/22 13:21 06/04/22 20:32 06/04/22 20:32 06/04/22 20:31 06/04/22 20:32 06/04/22 13:33 DATA Data Completed and Pending Labs: Labs from last 24 hours 06/04/22 06/04/22 06/04/22 19:57 19:53 19:52 WBC RBC Hgb Hct POC Hct 30.0 L 30.0 L MCV MCH MCHC RDW Plt Count MPV Immature Gran % (Auto) Neut % (Auto) Lymph % (Auto) [place] % (Auto) Eos % (Auto) Baso % (Auto) Lymph # (Auto) [place] # (Auto) Eos # (Auto) Baso # (Auto) Immature Gran # Absolute Neutrophils ABG Methemoglobin VBG pH POC VBG pH 7.38 VBG pCO2 POC VBG pCO2 at Temp 42.7 VBG pO2 POC VBG pO2 37 VBG HCO3 POC VBG HCO3 25.3 VBG Total CO2 POC VBG Total CO2 27.0 VBG O2 Saturation POC Venous O2 Sat 69.0 VBG Base Excess POC VBG Base Excess 0 VBG Lactic Acid 1.2 Carboxyhemoglobin Total Hemoglobin POC Sodium 129 L 129 L Sodium POC Potassium 3.9 3.8 Potassium POC Chloride 85 L 84 L Chloride Carbon Dioxide POC Total CO2 26.0 24.0 Anion Gap POC BUN 75 H 74 H POC Creatinine 5.6 H* 5.7 H* POC Glucose > 700 H* > 700 H* POC WB Ioniz Calcium 0.87 L 0.87 L Magnesium Total Creatine Kinase CK-MB (CK-2) Beta-Hydroxybutyrate Urine Color Urine Appearance Urine pH Ur Specific [place] Urine Protein Urine Glucose (UA) Urine Ketones Urine Occult Blood Urine Nitrate Urine Bilirubin Urine Urobilinogen Ur Leukocyte Esterase Urine RBC Urine WBC Ur Squamous Epith Cells Urine Bacteria Hyaline Casts Ur Culture Indicated? Urine Opiates Screen Ur Opiates Confirm Ur Oxycodone Screen U Oxycod/Oxymor Confirm Urine Methadone Screen Ur Methadone Confirm Acetaminophen Ur Barbiturates Screen Ur Barbiturate Confirm Ur Phencyclidine Scrn Urine PCP Confirm Ur Amphetamines Screen U Amphetamines Confirm U Benzodiazepines Scrn Ur Benzodiazepine, Qnt Urine Cocaine Screen Urine Cocaine Confirm U Cannabinoids Confirm U Marijuana (THC) Screen Ethyl Alcohol mg/dL Ethyl Alcohol g/dL 06/04/22 06/04/22 06/04/22 19:50 19:50 18:38 WBC RBC Hgb Hct POC Hct Pending MCV MCH MCHC RDW Plt Count MPV Immature Gran % (Auto) Neut % (Auto) Lymph % (Auto) [place] % (Auto) Eos % (Auto) Baso % (Auto) Lymph # (Auto) [place] # (Auto) Eos # (Auto) Baso # (Auto) Immature Gran # Absolute Neutrophils ABG Methemoglobin VBG pH POC VBG pH VBG pCO2 POC VBG pCO2 at Temp VBG pO2 POC VBG pO2 VBG HCO3 POC VBG HCO3 VBG Total CO2 POC VBG Total CO2 VBG O2 Saturation POC Venous O2 Sat VBG Base Excess POC VBG Base Excess VBG Lactic Acid 1.9 Carboxyhemoglobin Total Hemoglobin POC Sodium Pending Sodium POC Potassium Pending Potassium POC Chloride Pending Chloride Carbon Dioxide POC Total CO2 Pending Anion Gap POC BUN Pending POC Creatinine Pending POC Glucose Pending POC WB Ioniz Calcium Pending Magnesium Total Creatine Kinase Pending CK-MB (CK-2) Pending Beta-Hydroxybutyrate Urine Color Urine Appearance Urine pH Ur Specific [place] Urine Protein Urine Glucose (UA) Urine Ketones Urine Occult Blood Urine Nitrate Urine Bilirubin Urine Urobilinogen Ur Leukocyte Esterase Urine RBC Urine WBC Ur Squamous Epith Cells Urine Bacteria Hyaline Casts Ur Culture Indicated? Urine Opiates Screen Ur Opiates Confirm Ur Oxycodone Screen U Oxycod/Oxymor Confirm Urine Methadone Screen Ur Methadone Confirm Acetaminophen Ur Barbiturates Screen Ur Barbiturate Confirm Ur Phencyclidine Scrn Urine PCP Confirm Ur Amphetamines Screen U Amphetamines Confirm U Benzodiazepines Scrn Ur Benzodiazepine, Qnt Urine Cocaine Screen Urine Cocaine Confirm U Cannabinoids Confirm U Marijuana (THC) Screen Ethyl Alcohol mg/dL Ethyl Alcohol g/dL 06/04/22 06/04/22 06/04/22 17:44 17:02 16:35 WBC RBC Hgb Hct POC Hct 33.0 L MCV MCH MCHC RDW Plt Count MPV Immature Gran % (Auto) Neut % (Auto) Lymph % (Auto) [place] % (Auto) Eos % (Auto) Baso % (Auto) Lymph # (Auto) [place] # (Auto) Eos # (Auto) Baso # (Auto) Immature Gran # Absolute Neutrophils ABG Methemoglobin 0.3 L VBG pH 7.24 L POC VBG pH VBG pCO2 35.9 L POC VBG pCO2 at Temp VBG pO2 127.4 H POC VBG pO2 VBG HCO3 14.9 L POC VBG HCO3 VBG Total CO2 16.0 L POC VBG Total CO2 VBG O2 Saturation 93.6 H POC Venous O2 Sat VBG Base Excess -12 L POC VBG Base Excess VBG Lactic Acid Carboxyhemoglobin 3.7 H Total Hemoglobin 10.6 L POC Sodium 124 L Sodium POC Potassium 4.0 Potassium POC Chloride 79 L Chloride Carbon Dioxide POC Total CO2 16.0 L Anion Gap POC BUN 92 H POC Creatinine 5.6 H* POC Glucose > 700 H* POC WB Ioniz Calcium 0.90 L Magnesium Total Creatine Kinase CK-MB (CK-2) Beta-Hydroxybutyrate Urine Color Lt. yellow Urine Appearance Clear Urine pH 5.5 Ur Specific [place] 1.020 Urine Protein 100 A Urine Glucose (UA) >=1000 A Urine Ketones 15 A Urine Occult Blood Trace-lysed A Urine Nitrate Negative Urine Bilirubin Negative Urine Urobilinogen Normal Ur Leukocyte Esterase Negative Urine RBC < 1 Urine WBC 2 Ur Squamous Epith Cells 0 Urine Bacteria None Hyaline Casts 1 Ur Culture Indicated? No Urine Opiates Screen Ur Opiates Confirm Ur Oxycodone Screen U Oxycod/Oxymor Confirm Urine Methadone Screen Ur Methadone Confirm Acetaminophen Ur Barbiturates Screen Ur Barbiturate Confirm Ur Phencyclidine Scrn Urine PCP Confirm Ur Amphetamines Screen U Amphetamines Confirm U Benzodiazepines Scrn Ur Benzodiazepine, Qnt Urine Cocaine Screen Urine Cocaine Confirm U Cannabinoids Confirm U Marijuana (THC) Screen Ethyl Alcohol mg/dL Ethyl Alcohol g/dL 06/04/22 06/04/22 06/04/22 16:35 15:05 14:54 WBC 13.2 H RBC 3.62 L Hgb 9.6 L Hct 32.7 L POC Hct MCV 90.3 MCH 26.5 MCHC 29.4 L RDW 14.9 H Plt Count 321 MPV 11.9 Immature Gran % (Auto) 0.7 H Neut % (Auto) 89.5 H Lymph % (Auto) 4.6 L [place] % (Auto) 4.7 Eos % (Auto) 0 Baso % (Auto) 0.5 Lymph # (Auto) 0.61 L [place] # (Auto) 0.62 Eos # (Auto) 0 Baso # (Auto) 0.06 Immature Gran # 0.09 H Absolute Neutrophils 11.80 H ABG Methemoglobin VBG pH POC VBG pH 7.23 L VBG pCO2 POC VBG pCO2 at Temp 38.9 L VBG pO2 POC VBG pO2 47 H VBG HCO3 POC VBG HCO3 16.2 L VBG Total CO2 POC VBG Total CO2 17.0 L VBG O2 Saturation POC Venous O2 Sat 75.0 H VBG Base Excess POC VBG Base Excess -11.0 L VBG Lactic Acid 2.5 H Carboxyhemoglobin Total Hemoglobin POC Sodium Sodium POC Potassium Potassium POC Chloride Chloride Carbon Dioxide POC Total CO2 Anion Gap POC BUN POC Creatinine POC Glucose POC WB Ioniz Calcium Magnesium Total Creatine Kinase CK-MB (CK-2) Beta-Hydroxybutyrate Urine Color Urine Appearance Urine pH Ur Specific [place] Urine Protein Urine Glucose (UA) Urine Ketones Urine Occult Blood Urine Nitrate Urine Bilirubin Urine Urobilinogen Ur Leukocyte Esterase Urine RBC Urine WBC Ur Squamous Epith Cells Urine Bacteria Hyaline Casts Ur Culture Indicated? Urine Opiates Screen None detected Ur Opiates Confirm TNP Ur Oxycodone Screen None detected U Oxycod/Oxymor Confirm TNP Urine Methadone Screen None detected Ur Methadone Confirm TNP Acetaminophen Ur Barbiturates Screen None detected Ur Barbiturate Confirm TNP Ur Phencyclidine Scrn None detected Urine PCP Confirm TNP Ur Amphetamines Screen None detected U Amphetamines Confirm TNP U Benzodiazepines Scrn None detected Ur Benzodiazepine, Qnt TNP Urine Cocaine Screen None detected Urine Cocaine Confirm TNP U Cannabinoids Confirm Pending U Marijuana (THC) Screen Suspect positive A Ethyl Alcohol mg/dL Ethyl Alcohol g/dL 06/04/22 06/04/22 06/04/22 14:35 14:35 14:34 WBC RBC Hgb Hct POC Hct MCV MCH MCHC RDW Plt Count MPV Immature Gran % (Auto) Neut % (Auto) Lymph % (Auto) [place] % (Auto) Eos % (Auto) Baso % (Auto) Lymph # (Auto) [place] # (Auto) Eos # (Auto) Baso # (Auto) Immature Gran # Absolute Neutrophils ABG Methemoglobin 0.3 L VBG pH 7.15 L* POC VBG pH VBG pCO2 40.3 L POC VBG pCO2 at Temp VBG pO2 69.8 H POC VBG pO2 VBG HCO3 13.8 L POC VBG HCO3 VBG Total CO2 15.1 L POC VBG Total CO2 VBG O2 Saturation 86.9 H POC Venous O2 Sat VBG Base Excess -14 L POC VBG Base Excess VBG Lactic Acid Carboxyhemoglobin 2.5 H Total Hemoglobin 11.2 L POC Sodium Sodium 121 L POC Potassium Potassium 6.7 H* POC Chloride Chloride 64 L Carbon Dioxide 14 L POC Total CO2 Anion Gap 43.0 H POC BUN POC Creatinine POC Glucose POC WB Ioniz Calcium Magnesium 3.2 H Total Creatine Kinase CK-MB (CK-2) Beta-Hydroxybutyrate 13.25 H Urine Color Urine Appearance Urine pH Ur Specific [place] Urine Protein Urine Glucose (UA) Urine Ketones Urine Occult Blood Urine Nitrate Urine Bilirubin Urine Urobilinogen Ur Leukocyte Esterase Urine RBC Urine WBC Ur Squamous Epith Cells Urine Bacteria Hyaline Casts Ur Culture Indicated? Urine Opiates Screen Ur Opiates Confirm Ur Oxycodone Screen U Oxycod/Oxymor Confirm Urine Methadone Screen Ur Methadone Confirm Acetaminophen Ur Barbiturates Screen Ur Barbiturate Confirm Ur Phencyclidine Scrn Urine PCP Confirm Ur Amphetamines Screen U Amphetamines Confirm U Benzodiazepines Scrn Ur Benzodiazepine, Qnt Urine Cocaine Screen Urine Cocaine Confirm U Cannabinoids Confirm U Marijuana (THC) Screen Ethyl Alcohol mg/dL < 10.0 Ethyl Alcohol g/dL < 0.010 06/04/22 06/04/22 14:34 14:34 WBC RBC Hgb Hct POC Hct MCV MCH MCHC RDW Plt Count MPV Immature Gran % (Auto) Neut % (Auto) Lymph % (Auto) [place] % (Auto) Eos % (Auto) Baso % (Auto) Lymph # (Auto) [place] # (Auto) Eos # (Auto) Baso # (Auto) Immature Gran # Absolute Neutrophils ABG Methemoglobin VBG pH POC VBG pH VBG pCO2 POC VBG pCO2 at Temp VBG pO2 POC VBG pO2 VBG HCO3 POC VBG HCO3 VBG Total CO2 POC VBG Total CO2 VBG O2 Saturation POC Venous O2 Sat VBG Base Excess POC VBG Base Excess VBG Lactic Acid Carboxyhemoglobin Total Hemoglobin POC Sodium Sodium POC Potassium Potassium POC Chloride Chloride Carbon Dioxide POC Total CO2 Anion Gap POC BUN POC Creatinine POC Glucose POC WB Ioniz Calcium Magnesium TNP Total Creatine Kinase CK-MB (CK-2) Beta-Hydroxybutyrate Urine Color Urine Appearance Urine pH Ur Specific [place] Urine Protein Urine Glucose (UA) Urine Ketones Urine Occult Blood Urine Nitrate Urine Bilirubin Urine Urobilinogen Ur Leukocyte Esterase Urine RBC Urine WBC Ur Squamous Epith Cells Urine Bacteria Hyaline Casts Ur Culture Indicated? Urine Opiates Screen Ur Opiates Confirm Ur Oxycodone Screen U Oxycod/Oxymor Confirm Urine Methadone Screen Ur Methadone Confirm Acetaminophen < 5.0 Ur Barbiturates Screen Ur Barbiturate Confirm Ur Phencyclidine Scrn Urine PCP Confirm Ur Amphetamines Screen U Amphetamines Confirm U Benzodiazepines Scrn Ur Benzodiazepine, Qnt Urine Cocaine Screen Urine Cocaine Confirm U Cannabinoids Confirm U Marijuana (THC) Screen Ethyl Alcohol mg/dL Ethyl Alcohol g/dL A/P Narrative A/P Narrative: Assessment: 36 year old male admitted for for diabetic ketoacidosis and acute on chronic kidney disease injury. Nephrology initially recommended transfer to a higher level of care for acute hemodialysis however the patient was declined. The patient began to make urine after IV fluid in the ED. Nephrology was contacted again and reluctantly agreed to admission at [facility] since the patient was refused transfer to a higher level of care. The patient was reluctantly admitted by hospital medicine for critical care. It is unclear if the patient's renal function will recover back to his basline. #Metabolic acidosis secondary to DKA and renal failure #Diabetic ketoacidosis #Acute on chronic kidney disease injury #Chronic kidney disease stage 3b-4 #Type 1 diabetes mellitus #Leukocytosis likely stress induced #Acute on chronic anemia #Gastroparesis s/p gastric pacemaker Plan -Insulin infusion per DKA protocol. -IV fluid with 1/2 NS, transition to D5 1/2 NS when glucose approaches 200. -Trend electrolytes, anion gap, and pH. -Replace electrolytes as needed. -Monitor renal function and urine output. -Monitor hemoglobin, transfuse RBC for hemoglobin < 7 or symptomatic anemia. -Nephrology consult. -Home medication reconciliation. -Consistent carbohydrate diet. 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 -DVT prophylaxis: Heparin SQ -Code status: [employer] Spent With Patient Time: Total time spent is greater than 50% in coordination of care (as documented) at patient's floor/unit and/or counseling patient:
[2022-06-04] MEDS: 0.45 % SODIUM CHLORIDE 1,000 ML IV SCH (21:36)
[2022-06-04] MEDS ORDERED: INSULIN REGULAR, HUMAN 1 UNIT/0.01 ML UNIT IV PRN (21:54)
[2022-06-04] MEDS: 0.9 % SODIUM CHLORIDE 10 ML SYRINGE IV SCH (22:02)
[2022-06-04] MEDS: HEPARIN 5,000 UNIT/ML VIAL SQ SCH (22:05)
[2022-06-04] MEDS ORDERED: INSULIN REGULAR, HUMAN 1 UNIT/0.01 ML UNIT ONE ×2 (22:11→23:51)
[2022-06-04] MEDS: ONDANSETRON 4 MG/2 ML VIAL IV PRN (22:49)
[2022-06-04] MEDS ORDERED: ONDANSETRON 4 MG/2 ML VIAL ONE (22:49)
[2022-06-04 23:49] LABS: ALT/SGPT 14 U/L (<40); AST/SGOT 19 U/L (<40); Albumin 3.7 gm/dL (3.2-5.2); Albumin/Globulin Ratio 1.3 (1.0-2.3); Alkaline Phosphatase 148 U/L (39-117); Bilirubin,Direct < 0.2 mg/dL (0-0.3); Bilirubin,Total 0.2 mg/dL (0.1-1.0); Blood Urea Nitrogen 68 mg/dL (6-20); Carbon Dioxide 26 mmol/L (22-30); Chloride 87 mmol/L (96-108); Globulin 2.9 gm/dL (2.2-3.7); Glomerular Filtration Rate 15; Glucose 481 mg/dL (70-105); Lactate Dehydrogenase 245 U/L (135-225); Phosphorous 4.9 mg/dL (2.5-4.5); Triglycerides 119 mg/dL (<150); Uric Acid 12.2 mg/dL (2.5-8.0)
[2022-06-05] MEDS: INSULIN REGULAR, HUMAN 50 UNIT in 0.9 % SODIUM CHLORIDE 99.5 ML IV SCH (00:45)
[2022-06-05] MEDS: 0.45 % SODIUM CHLORIDE 1,000 ML IV SCH ×4 (02:36→19:38)
[2022-06-05] MEDS: DEXTROSE 5%-1/2NS 1,000 ML IV SCH ×2 (03:26→08:13)
[2022-06-05] MEDS: ONDANSETRON 4 MG/2 ML VIAL IV PRN ×3 (04:39→19:49)
[2022-06-05] MEDS ORDERED: ONDANSETRON 4 MG/2 ML VIAL ONE (04:43)
[2022-06-05] MEDS: 0.9 % SODIUM CHLORIDE 10 ML SYRINGE IV SCH ×2 (05:59→16:58)
[2022-06-05 06:20] LABS: ABG Methemoglobin 0.1 % (0.4-1.5); Total Hemoglobin 10.6 gm/Dl (13.5-16.5); VBG Base Excess 7 (-2-3); VBG HCO3 29.8 mmol/L (24.0-28.0); VBG Oxygen Saturation 92.2 % (40.0-70.0); VBG PCO2 36.7 mmHg (41.0-51.0); VBG PH 7.53 U (7.32-7.42); VBG PO2 131.7 mmHg (25.0-40.0); VBG Total CO2 30.9 mmol/L (25.0-29.0)
[2022-06-05 06:50] LABS: Hematocrit 28.3 % (40.1-51.0); Hemoglobin 9.8 g/dL (13.7-17.5); Mean Cell Volume 79.3 fL (80.0-100.0); Mean Corpuscular HGB Conc 34.6 g/dL (31.0-36.0); Mean Platelet Volume 10.2 fL (8.8-12.5); Platelet Count 283 K/mcL (140-440); RBC 3.57 M/mcL (4.63-6.08); Red Cell Distribution Width 14.6 % (11.5-14.5); WBC 24.3 K/mcL (4.5-11.0)
[2022-06-05 06:52] LABS: ALT/SGPT 11 U/L (<40); AST/SGOT 20 U/L (<40); Albumin 3.5 gm/dL (3.2-5.2); Albumin/Globulin Ratio 1.3 (1.0-2.3); Alkaline Phosphatase 128 U/L (39-117); Bilirubin,Direct < 0.2 mg/dL (0-0.3); Bilirubin,Total 0.2 mg/dL (0.1-1.0); Blood Urea Nitrogen 57 mg/dL (6-20); Calcium 8.4 mg/dL (8.6-10.4); Carbon Dioxide 30 mmol/L (22-30); Chloride 97 mmol/L (96-108); Globulin 2.7 gm/dL (2.2-3.7); Glomerular Filtration Rate 17; Glucose 107 mg/dL (70-105); Lactate Dehydrogenase 243 U/L (135-225); Phosphorous 4.2 mg/dL (2.5-4.5); Triglycerides 74 mg/dL (<150); Uric Acid 10.4 mg/dL (2.5-8.0)
[2022-06-05] MEDS ORDERED: DEXTROSE 50% 50 ML VIAL IV ONE (06:59)
[2022-06-05] MEDS: DEXTROSE 50% 50 ML SYRINGE IV ONE ×2 (07:04→07:11)
[2022-06-05 08:22] LABS: Anisocytosis OCC (None Seen); Band Neutrophils % 3 % (0-10); Lymphocytes % 8 % (15-49); Microcytosis 1+ (None Seen); Monocytes % (Manual) 9 % (1-12); Platelet Estimate NORMAL (Normal); RBC Morphology ABNORMAL (Normal); Segmented Neutrophils % 80 % (38-78)
[2022-06-05] MEDS ORDERED: POTASSIUM CHLORIDE 20 MEQ TABLET PO ONE (09:12)
[2022-06-05 09:13] LABS: ABG Methemoglobin 0.2 % (0.4-1.5); Total Hemoglobin 10.9 gm/Dl (13.5-16.5); VBG Base Excess 8 (-2-3); VBG HCO3 33.9 mmol/L (24.0-28.0); VBG Oxygen Saturation 82.6 % (40.0-70.0); VBG PCO2 53.3 mmHg (41.0-51.0); VBG PH 7.42 U (7.32-7.42); VBG PO2 49.2 mmHg (25.0-40.0); VBG Total CO2 35.5 mmol/L (25.0-29.0)
[2022-06-05] MEDS ORDERED: DEXTROSE 31 GM ORAL.SUSP PO PRN (09:21)
[2022-06-05] MEDS ORDERED: DEXTROSE 50% 50 ML VIAL IV PRN (09:21)
[2022-06-05] MEDS ORDERED: INSULIN GLARGINE, HUMAN 1 UNIT/0.01 ML SQ SCH ×2 (09:25→10:22)
--- NOTE | 2022-06-05 10:22 | Nephrology Progress Note ---
SUBJECTIVE Subjective Patient information: Note initiated : 06/05/22 at 10:20 am Patient: Mauri Levine 36 y/o M admitted on 06/04/22 for High blood sugar, seizure. Chief Complaint: Confused Pertinent ROS: Sleepy Constitutional Vitals: Vital Signs Temp Pulse Resp BP Pulse Ox O2 Del Method 99.2 F H 102 H 26 H 205/95 96 06/05/22 08:01 06/04/22 21:01 06/05/22 09:01 06/05/22 09:01 06/05/22 09:01 06/05/22 02:00 Period Temp Pulse Resp BP Sys/Menard Pulse Ox O2 Del Method O2 Flow Rate Last 24 Hr 97.3 F-99.2 F 91-106 14-36 83-230/42-111 20-100 Room Air-Room Air Intake and Output 06/04/22 06/05/22 06/05/22 19:59 03:59 11:59 Intake Total 2138 4276 1035 Output Total 100 3500 900 Balance 2038 776 135 Weight 155 lb 152 lb 4.8 oz Intake & Output: Intake & Output 06/04/22 06/05/22 06/05/22 19:59 03:59 11:59 Intake Total 2138 4276 1035 Output Total 100 3500 900 Balance 2038 776 135 Weight 155 lb 152 lb 4.8 oz Intake: IV 2138 4276 1035 Sodium Chloride 0.45% 1,000 ml 138 2167 @ 200 mls/hr IV .Q5H KOKO Rx#: [id number] Dextrose 5%-1/2Ns IV Solution 1 957 ,000 ml @ 200 mls/hr IV .Q5H KOKO Rx#:[id number] HumuLIN R 50 UNIT In Sodium 109 78 Chloride 0.9% 99.5 ml @ 7 UNIT/ HR 14 mls/hr IV DUR KOKO Rx#: [id number] Lactated Ringers 1,000 ml @ 2000 2000 Wide Open IV BOLUS ONE Rx#: [id number] Oral 0 Output: Urine Catheter Amount 3500 900 Void Amount 100 Mcknight 100 Other: Urine Appearance Clear Clear Mcknight Clear Clear Clear Urine Color Pale Yellow Mcknight Pale Pale Yellow Urine Odor Normal General appearance: no acute distress Head Head exam: Present atraumatic, normal inspection and normocephalic Eye Eye exam: Present normal appearance ENT ENT exam: Present mucous membranes moist Respiratory Respiratory exam: Absent respiratory distress Cardiovascular Cardiovascular exam: Present normal rate and rhythm GI/Abdominal GI/Abdominal exam: Present soft; Absent tenderness Extremities Exam Extremities exam: Absent joint swelling or pedal edema Neurological Exam Neurological exam: Present altered Skin Skin exam: Present warm; Absent rash A/P Assessment and plan (1) Acute worsening of stage 4 chronic kidney disease: Assessment and plan: Mauri Levine is a 36-year-old male with diabetes mellitus type 1, chronic kidney disease stage 4, hypertension brought to the [facility] ED after a tonic-clonic seizure. The patient's mother reported that the patient was confused this morning and refused to go to be seen. He later became unresponsive and it was found that his insulin pump was . EMS witnessed a second tonic-clonic seizure while en route. Patient was unresponsive upon arrival to the emergency department. In ED, labs were significant for sodium 124, creatinine 5.6, potassium 6.7, CO2 16, glucose >700. He was treated with IVF, insulin bolus of 7u and drip of 7u/hr initiated. Nephrology consultation requested for acute kidney injury. Acute kidney injury associated with DKA on chronic kidney disease stage 4 with initial hyperkalemia, metabolic acidosis and hyponatremia, present on arrival. The patient had multiple recent admissions, most recent 2 weeks ago for a similar presentation. He did not require hemodialysis previously and recovered with IVF and DKA treatment. Workup: Urinalysis on 06/04/22: Yellow, Clear, pH 5.5, SG 1.020, protein 100, blood trace-lysed, leukocyte esterase negative. Previous workup: Urine random total protein/creatinine on 07/07/21: 1,110 mg/g creatinine. Renal US on 08/16/21: Hyperechoic kidneys compatible medical renal disease. Prostate is normal size-volume 28 cc. Progress: Serum creatinine decreased from 4.6 to 4.3 in the past 24 hours. Urine output: 3600 ml reported in the past 24 hours. Recommendations/Plan: Anticipate no hemodialysis need. Nephrology will sign off. Status: Acute Time Spent With Patient Time: Total time spent is greater than 50% in coordination of care (as documented) at patient's floor/unit and/or counseling patient:
[2022-06-05] MEDS: INSULIN LISPRO 1 UNIT/0.01 ML UNIT SQ SCH ×6 (10:24→20:09)
[2022-06-05] MEDS: HEPARIN 5,000 UNIT/ML VIAL SQ SCH ×2 (10:33→20:03)
[2022-06-05] MEDS ORDERED: POTASSIUM CHLORIDE 20 MEQ in DEXTROSE 5% IN WATER 100 ML IV ONE (11:00)
[2022-06-05] MEDS: amLODIPine 5 MG TABLET PO SCH (12:21)
--- NOTE | 2022-06-05 13:12 | Internal Med Progress Note ---
SUBJECTIVE Subjective Patient information: Note initiated : 06/05/22 at 1:08 pm Service Date, if different from initiated Date: [] Patient: Mauri Levine 36 y/o M admitted on 06/04/22 for High blood sugar, seizure. Chief Complaint: [] Interval history: Mr. 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 The patient is not able to provide a history due to lethargy from DKA. Per EMS report the patient had two seizures today which was the reason he was brought to the ED. He received Versed after the second seizure. It sounds like the patient's insulin pump developed a failure 2-3 days prior to admission. Nephrology was consulted for the ROSALIO and recommended transfer to a higher level of care which was attempted by the ED provider however the patient was refused. Hospital medicine was consulted for admission. After discussing the patient with nephrology and in light of the transfer denial the decision was made to admit the patient for management of DKA and follow renal function closely. If renal function does not improve the patient will need to be transferred to a higher level of care for acute renal replacement therapy. 06/05 Stable overnight, high-grade temperatures but no fevers. Blood pressure stuart vated, added Norvasc. Diabetic ketoacidosis resolved, transition to basal bolus insulin. The patient's renal function has improved, he is making urine. Replaced potassium. WBC increased from 13.2 to 24.3. Blood cultures are obtained. Chest x-ray was normal. Urinalysis was not suggestive of UTI. Physical exam Head: Atraumatic, normal inspection. Eyes: normal appearance, no scleral icterus. Neck: full ROM Respiratory: Accessed port right chest, no respiratory distress Cardiovascular: Normal rate, S1, S2. GI/Abdominal: soft, nontender, no guarding. Extremities: full range of motion, nontender. Neurological: CN II-XII intact, intact motor, intact sensation. Psychiatric: drowsy Skin: warm, normal color Constitutional Vitals: Vital Signs Temp Pulse Resp BP Pulse Ox O2 Del Method 98.4 F 89 22 166/76 97 06/05/22 12:01 06/05/22 10:01 06/05/22 12:01 06/05/22 12:01 06/05/22 10:01 06/05/22 02:00 Period Temp Pulse Resp BP Sys/Menard Pulse Ox O2 Del Method O2 Flow Rate Last 24 Hr 97.3 F-99.2 F 89-106 14-36 83-230/42-111 20-100 Room Air-Room Air Intake and Output 06/05/22 06/05/22 06/05/22 03:59 11:59 19:59 Intake Total 4276 1375 Output Total 3500 2225 Balance 776 -850 Weight 69.082 kg 69.082 kg Patient Weight 06/06/22 03:59 Weight 69.082 kg Intake & Output: Intake & Output 06/05/22 06/05/22 06/05/22 03:59 11:59 19:59 Intake Total 4276 1375 Output Total 3500 2225 Balance 776 -850 Weight 69.082 kg 69.082 kg Intake: IV 4276 1375 Sodium Chloride 0.45% 1,000 ml 2167 @ 200 mls/hr IV .Q5H KOKO Rx#: [id number] Dextrose 5%-1/2Ns IV Solution 1 1297 ,000 ml @ 200 mls/hr IV .Q5H KOKO Rx#:[id number] HumuLIN R 50 UNIT In Sodium 109 78 Chloride 0.9% 99.5 ml @ 7 UNIT/ HR 14 mls/hr IV DUR KOKO Rx#: [id number] Lactated Ringers 1,000 ml @ 2000 Wide Open IV BOLUS ONE Rx#: [id number] Oral 0 Output: Urine Catheter Amount 3500 2225 Other: Meal Breakfast Percent of Meal Consumed Refused Urine Appearance Clear Clear Mcknight Clear Clear Urine Color Pale Pale Mcknight Pale Yellow Urine Odor Normal OBJ DATA Labs CBC & Chem 7: 06/05/22 08:54 06/05/22 05:57 Labs: Abnormal Lab Results 06/05/22 06/05/22 06/05/22 08:54 08:54 08:54 WBC RBC Hgb 10.0 L Hct POC Hct MCV MCHC RDW Immature Gran % (Auto) Neut % (Auto) Lymph % (Auto) Lymph # (Auto) Seg Neutrophils % Lymphocytes % Immature Gran # Absolute Neutrophils RBC Morphology Anisocytosis Microcytosis ABG Methemoglobin 0.2 L VBG pH POC VBG pH VBG pCO2 53.3 H POC VBG pCO2 at Temp VBG pO2 49.2 H POC VBG pO2 VBG HCO3 33.9 H POC VBG HCO3 VBG Total CO2 35.5 H POC VBG Total CO2 VBG O2 Saturation 82.6 H POC Venous O2 Sat VBG Base Excess 8 H POC VBG Base Excess VBG Lactic Acid Carboxyhemoglobin 3.8 H Total Hemoglobin 10.9 L POC Sodium Sodium Potassium POC Chloride Chloride Carbon Dioxide POC Total CO2 Anion Gap POC BUN BUN Creatinine POC Creatinine Glucose POC Glucose Uric Acid Calcium POC WB Ioniz Calcium Phosphorus Magnesium Alkaline Phosphatase Lactate Dehydrogenase CK-MB (CK-2) Beta-Hydroxybutyrate Procalcitonin 0.44 H Urine Protein Urine Glucose (UA) Urine Ketones Urine Occult Blood U Marijuana (THC) Screen 06/05/22 06/05/22 06/05/22 05:58 05:58 05:57 WBC 24.3 H RBC 3.57 L Hgb 9.8 L Hct 28.3 L POC Hct MCV 79.3 L MCHC RDW 14.6 H Immature Gran % (Auto) Neut % (Auto) Lymph % (Auto) Lymph # (Auto) Seg Neutrophils % 80 H Lymphocytes % 8 L Immature Gran # Absolute Neutrophils RBC Morphology Abnormal A Anisocytosis Occ A Microcytosis 1+ A ABG Methemoglobin 0.1 L VBG pH 7.53 H POC VBG pH VBG pCO2 36.7 L POC VBG pCO2 at Temp VBG pO2 131.7 H POC VBG pO2 VBG HCO3 29.8 H POC VBG HCO3 VBG Total CO2 30.9 H POC VBG Total CO2 VBG O2 Saturation 92.2 H POC Venous O2 Sat VBG Base Excess 7 H POC VBG Base Excess VBG Lactic Acid Carboxyhemoglobin 5.9 H Total Hemoglobin 10.6 L POC Sodium Sodium Potassium 3.1 L POC Chloride Chloride Carbon Dioxide POC Total CO2 Anion Gap POC BUN BUN 57 H Creatinine 4.3 H POC Creatinine Glucose 107 H POC Glucose Uric Acid 10.4 H Calcium 8.4 L POC WB Ioniz Calcium Phosphorus Magnesium Alkaline Phosphatase 128 H Lactate Dehydrogenase 243 H CK-MB (CK-2) Beta-Hydroxybutyrate Procalcitonin Urine Protein Urine Glucose (UA) Urine Ketones Urine Occult Blood U Marijuana (THC) Screen 06/05/22 06/04/22 06/04/22 02:50 22:48 19:57 WBC RBC Hgb Hct POC Hct 30.0 L MCV MCHC RDW Immature Gran % (Auto) Neut % (Auto) Lymph % (Auto) Lymph # (Auto) Seg Neutrophils % Lymphocytes % Immature Gran # Absolute Neutrophils RBC Morphology Anisocytosis Microcytosis ABG Methemoglobin VBG pH POC VBG pH 7.47 H VBG pCO2 POC VBG pCO2 at Temp VBG pO2 POC VBG pO2 45 H VBG HCO3 POC VBG HCO3 36.1 H VBG Total CO2 POC VBG Total CO2 38.0 H VBG O2 Saturation POC Venous O2 Sat 83.0 H VBG Base Excess POC VBG Base Excess 12.0 H* VBG Lactic Acid Carboxyhemoglobin Total Hemoglobin POC Sodium 129 L Sodium Potassium POC Chloride 85 L Chloride 87 L Carbon Dioxide POC Total CO2 Anion Gap 21.0 H POC BUN 75 H BUN 68 H Creatinine 4.6 H POC Creatinine 5.6 H* Glucose 481 H* POC Glucose > 700 H* Uric Acid 12.2 H Calcium 8.0 L POC WB Ioniz Calcium 0.87 L Phosphorus 4.9 H Magnesium 2.9 H Alkaline Phosphatase 148 H Lactate Dehydrogenase 245 H CK-MB (CK-2) Beta-Hydroxybutyrate Procalcitonin Urine Protein Urine Glucose (UA) Urine Ketones Urine Occult Blood U Marijuana (THC) Screen 06/04/22 06/04/22 06/04/22 19:52 19:50 17:44 WBC RBC Hgb Hct POC Hct 30.0 L MCV MCHC RDW Immature Gran % (Auto) Neut % (Auto) Lymph % (Auto) Lymph # (Auto) Seg Neutrophils % Lymphocytes % Immature Gran # Absolute Neutrophils RBC Morphology Anisocytosis Microcytosis ABG Methemoglobin 0.3 L VBG pH 7.24 L POC VBG pH VBG pCO2 35.9 L POC VBG pCO2 at Temp VBG pO2 127.4 H POC VBG pO2 VBG HCO3 14.9 L POC VBG HCO3 VBG Total CO2 16.0 L POC VBG Total CO2 VBG O2 Saturation 93.6 H POC Venous O2 Sat VBG Base Excess -12 L POC VBG Base Excess VBG Lactic Acid Carboxyhemoglobin 3.7 H Total Hemoglobin 10.6 L POC Sodium 129 L Sodium Potassium POC Chloride 84 L Chloride Carbon Dioxide POC Total CO2 Anion Gap POC BUN 74 H BUN Creatinine POC Creatinine 5.7 H* Glucose POC Glucose > 700 H* Uric Acid Calcium POC WB Ioniz Calcium 0.87 L Phosphorus Magnesium Alkaline Phosphatase Lactate Dehydrogenase CK-MB (CK-2) 12.0 H Beta-Hydroxybutyrate Procalcitonin Urine Protein Urine Glucose (UA) Urine Ketones Urine Occult Blood U Marijuana (THC) Screen 06/04/22 06/04/22 06/04/22 17:02 16:35 16:35 WBC RBC Hgb Hct POC Hct 33.0 L MCV MCHC RDW Immature Gran % (Auto) Neut % (Auto) Lymph % (Auto) Lymph # (Auto) Seg Neutrophils % Lymphocytes % Immature Gran # Absolute Neutrophils RBC Morphology Anisocytosis Microcytosis ABG Methemoglobin VBG pH POC VBG pH VBG pCO2 POC VBG pCO2 at Temp VBG pO2 POC VBG pO2 VBG HCO3 POC VBG HCO3 VBG Total CO2 POC VBG Total CO2 VBG O2 Saturation POC Venous O2 Sat VBG Base Excess POC VBG Base Excess VBG Lactic Acid Carboxyhemoglobin Total Hemoglobin POC Sodium 124 L Sodium Potassium POC Chloride 79 L Chloride Carbon Dioxide POC Total CO2 16.0 L Anion Gap POC BUN 92 H BUN Creatinine POC Creatinine 5.6 H* Glucose POC Glucose > 700 H* Uric Acid Calcium POC WB Ioniz Calcium 0.90 L Phosphorus Magnesium Alkaline Phosphatase Lactate Dehydrogenase CK-MB (CK-2) Beta-Hydroxybutyrate Procalcitonin Urine Protein 100 A Urine Glucose (UA) >=1000 A Urine Ketones 15 A Urine Occult Blood Trace-lysed A U Marijuana (THC) Screen Suspect positive A 06/04/22 06/04/22 06/04/22 15:05 14:54 14:35 WBC 13.2 H RBC 3.62 L Hgb 9.6 L Hct 32.7 L POC Hct MCV MCHC 29.4 L RDW 14.9 H Immature Gran % (Auto) 0.7 H Neut % (Auto) 89.5 H Lymph % (Auto) 4.6 L Lymph # (Auto) 0.61 L Seg Neutrophils % Lymphocytes % Immature Gran # 0.09 H Absolute Neutrophils 11.80 H RBC Morphology Anisocytosis Microcytosis ABG Methemoglobin 0.3 L VBG pH 7.15 L* POC VBG pH 7.23 L VBG pCO2 40.3 L POC VBG pCO2 at Temp 38.9 L VBG pO2 69.8 H POC VBG pO2 47 H VBG HCO3 13.8 L POC VBG HCO3 16.2 L VBG Total CO2 15.1 L POC VBG Total CO2 17.0 L VBG O2 Saturation 86.9 H POC Venous O2 Sat 75.0 H VBG Base Excess -14 L POC VBG Base Excess -11.0 L VBG Lactic Acid 2.5 H Carboxyhemoglobin 2.5 H Total Hemoglobin 11.2 L POC Sodium Sodium Potassium POC Chloride Chloride Carbon Dioxide POC Total CO2 Anion Gap POC BUN BUN Creatinine POC Creatinine Glucose POC Glucose Uric Acid Calcium POC WB Ioniz Calcium Phosphorus Magnesium Alkaline Phosphatase Lactate Dehydrogenase CK-MB (CK-2) Beta-Hydroxybutyrate Procalcitonin Urine Protein Urine Glucose (UA) Urine Ketones Urine Occult Blood U Marijuana (THC) Screen 06/04/22 14:35 WBC RBC Hgb Hct POC Hct MCV MCHC RDW Immature Gran % (Auto) Neut % (Auto) Lymph % (Auto) Lymph # (Auto) Seg Neutrophils % Lymphocytes % Immature Gran # Absolute Neutrophils RBC Morphology Anisocytosis Microcytosis ABG Methemoglobin VBG pH POC VBG pH VBG pCO2 POC VBG pCO2 at Temp VBG pO2 POC VBG pO2 VBG HCO3 POC VBG HCO3 VBG Total CO2 POC VBG Total CO2 VBG O2 Saturation POC Venous O2 Sat VBG Base Excess POC VBG Base Excess VBG Lactic Acid Carboxyhemoglobin Total Hemoglobin POC Sodium Sodium 121 L Potassium 6.7 H* POC Chloride Chloride 64 L Carbon Dioxide 14 L POC Total CO2 Anion Gap 43.0 H POC BUN BUN Creatinine POC Creatinine Glucose POC Glucose Uric Acid Calcium POC WB Ioniz Calcium Phosphorus Magnesium 3.2 H Alkaline Phosphatase Lactate Dehydrogenase CK-MB (CK-2) Beta-Hydroxybutyrate 13.25 H Procalcitonin Urine Protein Urine Glucose (UA) Urine Ketones Urine Occult Blood U Marijuana (THC) Screen Meds: Medications Amlodipine Besylate (Amlodipine 5 Mg Tablet) 5 mg PO DAILY [facility] Last Admin: 06/05/22 12:21 Dose: 5 mg Clonidine HCl (Clonidine Tts 2 1 Patch Patch) 1 patch TD Mo@0900 [facility] Dextrose (Dextrose 50% 50 Ml Vial) 0 ml IV UD PRN PRN Reason: Per Sliding Scale Diagnostic Test (Pha) (Accu-Chek 1 Each Strip) 1 each FS ACHS [facility] Last Admin: 06/05/22 11:31 Dose: 1 each Famotidine (Famotidine 20 Mg Tablet) 10 mg PO BID [facility] Fluoxetine HCl (Fluoxetine Hcl 20 Mg Capsule) 20 mg PO QDAY [facility] Glucose (Dextrose 31 Gm Oral.Susp) 15 gm PO PRN PRN PRN Reason: Hypoglycemia Heparin Sodium (Porcine) (Heparin 5,000 Unit/Ml Vial) 5,000 unit SQ Q12 [facility] Last Admin: 06/05/22 10:33 Dose: 5,000 unit Sodium Chloride (Sodium Chloride 0.45%) 1,000 mls @ 100 mls/hr IV .Q10H [facility] Last Admin: 06/05/22 09:50 Dose: 100 mls/hr Insulin Glargine (Insulin Glargine, Human 1 Unit/0.01 Ml) 10 unit SQ DAILY [facility] Last Admin: 06/05/22 10:33 Dose: 10 units Insulin Human Lispro (Insulin Lispro 1 Unit/0.01 Ml Unit) 0 unit SQ ACHS [facility]; Protocol Last Admin: 06/05/22 12:18 Dose: 1 unit Insulin Human Lispro (Insulin Lispro 1 Unit/0.01 Ml Unit) 0 unit SQ AC [facility] Last Admin: 06/05/22 12:45 Dose: Not Given Labetalol HCl (Labetalol 5 Mg/Ml Ml) 10 mg IV Q10M PRN PRN Reason: hypertension Mirtazapine (Mirtazapine 15 Mg Tablet) 15 mg PO HS [facility] Ondansetron HCl (Ondansetron 4 Mg/2 Ml Vial) 4 mg IV Q4HP PRN PRN Reason: Nausea And Vomiting Last Admin: 06/05/22 10:33 Dose: 4 mg Sodium Chloride (0.9 % Sodium Chloride 10 Ml Syringe) 10 ml IV Q8 [facility] Last Admin: 06/05/22 05:59 Dose: 10 ml Sucralfate (Sucralfate 1 Gm Tablet) 1 gm PO BID [facility] Venlafaxine HCl (Venlafaxine 75 Mg Cap.Xl.24h) 225 mg PO QAM [facility] ABG Interpretation ABG results: 06/04/22 06/04/22 06/05/22 14:35 17:44 05:58 ABG Methemoglobin 0.3 L 0.3 L 0.1 L VBG pH 7.15 L* 7.24 L 7.53 H VBG pCO2 40.3 L 35.9 L 36.7 L VBG pO2 69.8 H 127.4 H 131.7 H VBG HCO3 13.8 L 14.9 L 29.8 H VBG Total CO2 15.1 L 16.0 L 30.9 H VBG O2 Saturation 86.9 H 93.6 H 92.2 H VBG Base Excess -14 L -12 L 7 H 06/05/22 08:54 ABG Methemoglobin 0.2 L VBG pH 7.42 VBG pCO2 53.3 H VBG pO2 49.2 H VBG HCO3 33.9 H VBG Total CO2 35.5 H VBG O2 Saturation 82.6 H VBG Base Excess 8 H A/P Narrative A/P Narrative: Assessment: 36 year old male admitted for for diabetic ketoacidosis and acute on chronic kidney disease injury. #Acute on chronic kidney disease injury #Chronic kidney disease stage 3b-4 #Resolved diabetic ketoacidosis #Type 1 diabetes mellitus #Leukocytosis #Acute on chronic anemia #Gastroparesis s/p gastric pacemaker Plan -Start Lantus, prandial Humalog. and SSI. -Discontinue insulin infusion. -IV fluid with 1/2 NS. -Replace electrolytes as needed, take into consideration ROSALIO on CKD. -Monitor renal function and urine output. -Elevated WBC, check procalcitonin and CRP. -Low threshold for empiric antibiotic if the patient develops a fever or WBC continues to increase. -Nephrology consult. -Home medication reconciliation. -Consistent carbohydrate diet. 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 -DVT prophylaxis: Heparin SQ -Code status: Stator Winder Spent With Patient Time: Total time spent is greater than 50% in coordination of care (as documented) at patient's floor/unit and/or counseling patient:
[2022-06-05 13:47] LABS: ABG Methemoglobin 0.1 % (0.4-1.5); Total Hemoglobin 12.3 gm/Dl (13.5-16.5); VBG Base Excess 6 (-2-3); VBG HCO3 27.1 mmol/L (24.0-28.0); VBG Oxygen Saturation 85.7 % (40.0-70.0); VBG PCO2 29.3 mmHg (41.0-51.0); VBG PH 7.58 U (7.32-7.42); VBG PO2 115.5 mmHg (25.0-40.0)
[2022-06-05] MEDS: VENLAFAXINE 75 MG CAP.XL.24H PO SCH (13:47)
[2022-06-05] MEDS ORDERED: ACETAMINOPHEN 325 MG TABLET PO PRN (18:39)
[2022-06-05] MEDS: FAMOTIDINE 20 MG TABLET PO SCH (19:59)
[2022-06-05] MEDS: SUCRALFATE 1 GM TABLET PO SCH (20:00)
[2022-06-05] MEDS: MIRTAZAPINE 15 MG TABLET PO SCH (20:03)
[2022-06-05] MEDS ORDERED: METOCLOPRAMIDE 10 MG/2 ML VIAL IV PRN (20:31)
[2022-06-05] MEDS: CALCIUM CARBONATE 500 MG TAB.CHEW CHEWED PRN (20:45)
[2022-06-05] MEDS ORDERED: METOCLOPRAMIDE 10 MG/2 ML VIAL ONE (20:50)
[2022-06-05] MEDS ORDERED: CALCIUM CARBONATE 500 MG TAB.CHEW ONE (20:51)
[2022-06-05 23:06] LABS: Carbon Dioxide 27 mmol/L (22-30); Chloride 95 mmol/L (96-108)
[2022-06-06] MEDS: 0.9 % SODIUM CHLORIDE 10 ML SYRINGE IV SCH ×4 (01:09→21:06)
[2022-06-06] MEDS: 0.45 % SODIUM CHLORIDE 1,000 ML IV SCH (05:09)
[2022-06-06 06:40] LABS: Hematocrit 29.6 % (40.1-51.0); Hemoglobin 9.8 g/dL (13.7-17.5); Mean Cell Volume 81.1 fL (80.0-100.0); Mean Corpuscular HGB Conc 33.1 g/dL (31.0-36.0); Mean Platelet Volume 11.1 fL (8.8-12.5); Platelet Count 261 K/mcL (140-440); RBC 3.65 M/mcL (4.63-6.08); Red Cell Distribution Width 15.3 % (11.5-14.5); WBC 15.2 K/mcL (4.5-11.0)
[2022-06-06 06:52] LABS: ALT/SGPT 10 U/L (<40); AST/SGOT 13 U/L (<40); Albumin 3.5 gm/dL (3.2-5.2); Albumin/Globulin Ratio 1.3 (1.0-2.3); Alkaline Phosphatase 125 U/L (39-117); Bilirubin,Direct < 0.2 mg/dL (0-0.3); Bilirubin,Total 0.3 mg/dL (0.1-1.0); Blood Urea Nitrogen 40 mg/dL (6-20); Calcium 9.3 mg/dL (8.6-10.4); Carbon Dioxide 28 mmol/L (22-30); Chloride 97 mmol/L (96-108); Globulin 2.8 gm/dL (2.2-3.7); Glomerular Filtration Rate 22; Glucose 345 mg/dL (70-105); Lactate Dehydrogenase 223 U/L (135-225); Phosphorous 3.6 mg/dL (2.5-4.5); Triglycerides 141 mg/dL (<150); Uric Acid 6.6 mg/dL (2.5-8.0)
[2022-06-06] MEDS: INSULIN LISPRO 1 UNIT/0.01 ML UNIT SQ SCH ×8 (06:57→21:06)
[2022-06-06] MEDS ORDERED: METOCLOPRAMIDE 10 MG/2 ML VIAL IV PRN (07:30)
[2022-06-06] MEDS: FAMOTIDINE 20 MG TABLET PO SCH ×2 (09:00→21:05)
[2022-06-06] MEDS ORDERED: INSULIN GLARGINE, HUMAN 1 UNIT/0.01 ML SQ SCH (09:00)
[2022-06-06] MEDS: SUCRALFATE 1 GM TABLET PO SCH ×2 (09:00→21:34)
[2022-06-06] MEDS: VENLAFAXINE 75 MG CAP.XL.24H PO SCH (09:00)
[2022-06-06] MEDS: FLUoxetine HCL 20 MG CAPSULE PO SCH (09:01)
[2022-06-06] MEDS: HEPARIN 5,000 UNIT/ML VIAL SQ SCH ×2 (09:01→21:05)
[2022-06-06] MEDS: INSULIN GLARGINE, HUMAN 1 UNIT/0.01 ML SQ SCH (09:01)
[2022-06-06] MEDS: amLODIPine 5 MG TABLET PO SCH (09:01)
[2022-06-06 09:22] LABS: Anisocytosis 1+ (None Seen); Lymphocytes % 12 % (15-49); Monocytes % (Manual) 7 % (1-12); Platelet Estimate NORMAL (Normal); RBC Morphology ABNORMAL (Normal); Segmented Neutrophils % 81 % (38-78)
--- NOTE | 2022-06-06 12:11 | Internal Med Progress Note ---
SUBJECTIVE Subjective Patient information: Note initiated : 06/06/22 at 12:08 pm Service Date, if different from initiated Date: [] Patient: Mauri Levine 36 y/o M admitted on 06/04/22 for High blood sugar, seizure. Chief Complaint: [] Interval history: Mr. 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 The patient is not able to provide a history due to lethargy from DKA. Per EMS report the patient had two seizures today which was the reason he was brought to the ED. He received Versed after the second seizure. It sounds like the patient's insulin pump developed a failure 2-3 days prior to admission. Nephrology was consulted for the ROSALIO and recommended transfer to a higher level of care which was attempted by the ED provider however the patient was refused. Hospital medicine was consulted for admission. After discussing the patient with nephrology and in light of the transfer denial the decision was made to admit the patient for management of DKA and follow renal function closely. If renal function does not improve the patient will need to be transferred to a higher level of care for acute renal replacement therapy. 06/05 Stable overnight, high-grade temperatures but no fevers. Blood pressure el evated, added Norvasc. Diabetic ketoacidosis resolved, transition to basal bolus insulin. The patient's renal function has improved, he is making urine. Replaced potassium. WBC increased from 13.2 to 24.3. Blood cultures are obtained. Chest x-ray was normal. Urinalysis was not suggestive of UTI. 06/06 Vital stable overnight, no high-grade temps or fevers. Leukocytosis improving. The patient feels better, making urine. Acute renal failure has probably resolved as the patient's renal function is back to baseline. Increase Lantus to 15 units at bedtime, continue prandial and correction Humalog. Transfer to [facility]. Physical exam Head: Atraumatic, normal inspection. Eyes: normal appearance, no scleral icterus. Neck: full ROM Respiratory: Accessed port right chest, no respiratory distress Cardiovascular: Normal rate, S1, S2. GI/Abdominal: soft, nontender, no guarding. Extremities: full range of motion, nontender. Neurological: CN II-XII intact, intact motor, intact sensation. Psychiatric: Normal mood Skin: warm, normal color Constitutional Vitals: Vital Signs Temp Pulse Resp BP Pulse Ox O2 Del Method 98.6 F 85 19 136/74 100 06/06/22 08:06 06/06/22 08:06 06/06/22 08:06 06/06/22 08:06 06/06/22 08:06 06/06/22 07:00 Period Temp Pulse Resp BP Sys/Menard Pulse Ox O2 Del Method O2 Flow Rate Last 24 Hr 97 F-99.4 F 72-109 18-27 125-214/60-95 94-100 Room Air-Room Air Intake and Output 06/06/22 06/06/22 06/06/22 03:59 11:59 19:59 Intake Total 600 1432 Output Total 1550 1300 Balance -950 132 Weight 67.727 kg Intake & Output: Intake & Output 06/06/22 06/06/22 06/06/22 03:59 11:59 19:59 Intake Total 600 1432 Output Total 1550 1300 Balance -950 132 Weight 67.727 kg Intake: IV 952 Sodium Chloride 0.45% 1,000 ml 952 @ 100 mls/hr IV .Q10H [facility] Rx#: [id number] Oral 600 480 Output: Urine Catheter Amount 1550 1300 Other: Meal Breakfast Percent of Meal Consumed 25% Feeding Ability Independent Urine Appearance Clear Clear Mcknight Clear Clear Urine Color Yellow Pale Pale Bright Yellow Mcknight Yellow Yellow Urine Odor Normal Normal OBJ DATA Labs CBC & Chem 7: 06/06/22 05:06 06/06/22 05:06 Labs: Abnormal Lab Results 06/06/22 06/06/22 06/05/22 05:06 05:06 21:46 WBC 15.2 H RBC 3.65 L Hgb 9.8 L 10.0 L Hct 29.6 L POC Hct MCV MCHC RDW 15.3 H Immature Gran % (Auto) Neut % (Auto) Lymph % (Auto) Lymph # (Auto) Seg Neutrophils % 81 H Lymphocytes % 12 L Immature Gran # Absolute Neutrophils RBC Morphology Abnormal A Anisocytosis 1+ A Microcytosis ABG Methemoglobin VBG pH POC VBG pH VBG pCO2 POC VBG pCO2 at Temp VBG pO2 POC VBG pO2 VBG HCO3 POC VBG HCO3 VBG Total CO2 POC VBG Total CO2 VBG O2 Saturation POC Venous O2 Sat VBG Base Excess POC VBG Base Excess VBG Lactic Acid Carboxyhemoglobin Total Hemoglobin POC Sodium Sodium Potassium POC Chloride Chloride Carbon Dioxide POC Total CO2 Anion Gap POC BUN BUN 40 H Creatinine 3.4 H POC Creatinine Glucose 345 H POC Glucose Uric Acid Calcium POC WB Ioniz Calcium Phosphorus Magnesium Alkaline Phosphatase 125 H Lactate Dehydrogenase CK-MB (CK-2) Beta-Hydroxybutyrate Procalcitonin Urine Protein Urine Glucose (UA) Urine Ketones Urine Occult Blood U Marijuana (THC) Screen 06/05/22 06/05/22 06/05/22 21:45 17:13 13:25 WBC RBC Hgb 9.8 L Hct POC Hct MCV MCHC RDW Immature Gran % (Auto) Neut % (Auto) Lymph % (Auto) Lymph # (Auto) Seg Neutrophils % Lymphocytes % Immature Gran # Absolute Neutrophils RBC Morphology Anisocytosis Microcytosis ABG Methemoglobin 0.1 L VBG pH 7.58 H POC VBG pH VBG pCO2 29.3 L POC VBG pCO2 at Temp VBG pO2 115.5 H POC VBG pO2 VBG HCO3 POC VBG HCO3 VBG Total CO2 POC VBG Total CO2 VBG O2 Saturation 85.7 H POC Venous O2 Sat VBG Base Excess 6 H POC VBG Base Excess VBG Lactic Acid Carboxyhemoglobin 12.3 H Total Hemoglobin 12.3 L POC Sodium Sodium Potassium POC Chloride Chloride 95 L Carbon Dioxide POC Total CO2 Anion Gap POC BUN BUN Creatinine POC Creatinine Glucose POC Glucose Uric Acid Calcium POC WB Ioniz Calcium Phosphorus Magnesium Alkaline Phosphatase Lactate Dehydrogenase CK-MB (CK-2) Beta-Hydroxybutyrate Procalcitonin Urine Protein Urine Glucose (UA) Urine Ketones Urine Occult Blood U Marijuana (THC) Screen 06/05/22 06/05/22 06/05/22 13:25 08:54 08:54 WBC RBC Hgb 10.7 L Hct POC Hct MCV MCHC RDW Immature Gran % (Auto) Neut % (Auto) Lymph % (Auto) Lymph # (Auto) Seg Neutrophils % Lymphocytes % Immature Gran # Absolute Neutrophils RBC Morphology Anisocytosis Microcytosis ABG Methemoglobin 0.2 L VBG pH POC VBG pH VBG pCO2 53.3 H POC VBG pCO2 at Temp VBG pO2 49.2 H POC VBG pO2 VBG HCO3 33.9 H POC VBG HCO3 VBG Total CO2 35.5 H POC VBG Total CO2 VBG O2 Saturation 82.6 H POC Venous O2 Sat VBG Base Excess 8 H POC VBG Base Excess VBG Lactic Acid Carboxyhemoglobin 3.8 H Total Hemoglobin 10.9 L POC Sodium Sodium Potassium POC Chloride Chloride Carbon Dioxide POC Total CO2 Anion Gap POC BUN BUN Creatinine POC Creatinine Glucose POC Glucose Uric Acid Calcium POC WB Ioniz Calcium Phosphorus Magnesium Alkaline Phosphatase Lactate Dehydrogenase CK-MB (CK-2) Beta-Hydroxybutyrate Procalcitonin 0.44 H Urine Protein Urine Glucose (UA) Urine Ketones Urine Occult Blood U Marijuana (THC) Screen 06/05/22 06/05/22 06/05/22 08:54 05:58 05:58 WBC 24.3 H RBC 3.57 L Hgb 10.0 L 9.8 L Hct 28.3 L POC Hct MCV 79.3 L MCHC RDW 14.6 H Immature Gran % (Auto) Neut % (Auto) Lymph % (Auto) Lymph # (Auto) Seg Neutrophils % 80 H Lymphocytes % 8 L Immature Gran # Absolute Neutrophils RBC Morphology Abnormal A Anisocytosis Occ A Microcytosis 1+ A ABG Methemoglobin 0.1 L VBG pH 7.53 H POC VBG pH VBG pCO2 36.7 L POC VBG pCO2 at Temp VBG pO2 131.7 H POC VBG pO2 VBG HCO3 29.8 H POC VBG HCO3 VBG Total CO2 30.9 H POC VBG Total CO2 VBG O2 Saturation 92.2 H POC Venous O2 Sat VBG Base Excess 7 H POC VBG Base Excess VBG Lactic Acid Carboxyhemoglobin 5.9 H Total Hemoglobin 10.6 L POC Sodium Sodium Potassium POC Chloride Chloride Carbon Dioxide POC Total CO2 Anion Gap POC BUN BUN Creatinine POC Creatinine Glucose POC Glucose Uric Acid Calcium POC WB Ioniz Calcium Phosphorus Magnesium Alkaline Phosphatase Lactate Dehydrogenase CK-MB (CK-2) Beta-Hydroxybutyrate Procalcitonin Urine Protein Urine Glucose (UA) Urine Ketones Urine Occult Blood U Marijuana (THC) Screen 06/05/22 06/05/22 06/04/22 05:57 02:50 22:48 WBC RBC Hgb Hct POC Hct MCV MCHC RDW Immature Gran % (Auto) Neut % (Auto) Lymph % (Auto) Lymph # (Auto) Seg Neutrophils % Lymphocytes % Immature Gran # Absolute Neutrophils RBC Morphology Anisocytosis Microcytosis ABG Methemoglobin VBG pH POC VBG pH 7.47 H VBG pCO2 POC VBG pCO2 at Temp VBG pO2 POC VBG pO2 45 H VBG HCO3 POC VBG HCO3 36.1 H VBG Total CO2 POC VBG Total CO2 38.0 H VBG O2 Saturation POC Venous O2 Sat 83.0 H VBG Base Excess POC VBG Base Excess 12.0 H* VBG Lactic Acid Carboxyhemoglobin Total Hemoglobin POC Sodium Sodium Potassium 3.1 L POC Chloride Chloride 87 L Carbon Dioxide POC Total CO2 Anion Gap 21.0 H POC BUN BUN 57 H 68 H Creatinine 4.3 H 4.6 H POC Creatinine Glucose 107 H 481 H* POC Glucose Uric Acid 10.4 H 12.2 H Calcium 8.4 L 8.0 L POC WB Ioniz Calcium Phosphorus 4.9 H Magnesium 2.9 H Alkaline Phosphatase 128 H 148 H Lactate Dehydrogenase 243 H 245 H CK-MB (CK-2) Beta-Hydroxybutyrate Procalcitonin Urine Protein Urine Glucose (UA) Urine Ketones Urine Occult Blood U Marijuana (THC) Screen 06/04/22 06/04/22 06/04/22 19:57 19:52 19:50 WBC RBC Hgb Hct POC Hct 30.0 L 30.0 L MCV MCHC RDW Immature Gran % (Auto) Neut % (Auto) Lymph % (Auto) Lymph # (Auto) Seg Neutrophils % Lymphocytes % Immature Gran # Absolute Neutrophils RBC Morphology Anisocytosis Microcytosis ABG Methemoglobin VBG pH POC VBG pH VBG pCO2 POC VBG pCO2 at Temp VBG pO2 POC VBG pO2 VBG HCO3 POC VBG HCO3 VBG Total CO2 POC VBG Total CO2 VBG O2 Saturation POC Venous O2 Sat VBG Base Excess POC VBG Base Excess VBG Lactic Acid Carboxyhemoglobin Total Hemoglobin POC Sodium 129 L 129 L Sodium Potassium POC Chloride 85 L 84 L Chloride Carbon Dioxide POC Total CO2 Anion Gap POC BUN 75 H 74 H BUN Creatinine POC Creatinine 5.6 H* 5.7 H* Glucose POC Glucose > 700 H* > 700 H* Uric Acid Calcium POC WB Ioniz Calcium 0.87 L 0.87 L Phosphorus Magnesium Alkaline Phosphatase Lactate Dehydrogenase CK-MB (CK-2) 12.0 H Beta-Hydroxybutyrate Procalcitonin Urine Protein Urine Glucose (UA) Urine Ketones Urine Occult Blood U Marijuana (THC) Screen 06/04/22 06/04/22 06/04/22 17:44 17:02 16:35 WBC RBC Hgb Hct POC Hct 33.0 L MCV MCHC RDW Immature Gran % (Auto) Neut % (Auto) Lymph % (Auto) Lymph # (Auto) Seg Neutrophils % Lymphocytes % Immature Gran # Absolute Neutrophils RBC Morphology Anisocytosis Microcytosis ABG Methemoglobin 0.3 L VBG pH 7.24 L POC VBG pH VBG pCO2 35.9 L POC VBG pCO2 at Temp VBG pO2 127.4 H POC VBG pO2 VBG HCO3 14.9 L POC VBG HCO3 VBG Total CO2 16.0 L POC VBG Total CO2 VBG O2 Saturation 93.6 H POC Venous O2 Sat VBG Base Excess -12 L POC VBG Base Excess VBG Lactic Acid Carboxyhemoglobin 3.7 H Total Hemoglobin 10.6 L POC Sodium 124 L Sodium Potassium POC Chloride 79 L Chloride Carbon Dioxide POC Total CO2 16.0 L Anion Gap POC BUN 92 H BUN Creatinine POC Creatinine 5.6 H* Glucose POC Glucose > 700 H* Uric Acid Calcium POC WB Ioniz Calcium 0.90 L Phosphorus Magnesium Alkaline Phosphatase Lactate Dehydrogenase CK-MB (CK-2) Beta-Hydroxybutyrate Procalcitonin Urine Protein 100 A Urine Glucose (UA) >=1000 A Urine Ketones 15 A Urine Occult Blood Trace-lysed A U Marijuana (THC) Screen 06/04/22 06/04/22 06/04/22 16:35 15:05 14:54 WBC 13.2 H RBC 3.62 L Hgb 9.6 L Hct 32.7 L POC Hct MCV MCHC 29.4 L RDW 14.9 H Immature Gran % (Auto) 0.7 H Neut % (Auto) 89.5 H Lymph % (Auto) 4.6 L Lymph # (Auto) 0.61 L Seg Neutrophils % Lymphocytes % Immature Gran # 0.09 H Absolute Neutrophils 11.80 H RBC Morphology Anisocytosis Microcytosis ABG Methemoglobin VBG pH POC VBG pH 7.23 L VBG pCO2 POC VBG pCO2 at Temp 38.9 L VBG pO2 POC VBG pO2 47 H VBG HCO3 POC VBG HCO3 16.2 L VBG Total CO2 POC VBG Total CO2 17.0 L VBG O2 Saturation POC Venous O2 Sat 75.0 H VBG Base Excess POC VBG Base Excess -11.0 L VBG Lactic Acid 2.5 H Carboxyhemoglobin Total Hemoglobin POC Sodium Sodium Potassium POC Chloride Chloride Carbon Dioxide POC Total CO2 Anion Gap POC BUN BUN Creatinine POC Creatinine Glucose POC Glucose Uric Acid Calcium POC WB Ioniz Calcium Phosphorus Magnesium Alkaline Phosphatase Lactate Dehydrogenase CK-MB (CK-2) Beta-Hydroxybutyrate Procalcitonin Urine Protein Urine Glucose (UA) Urine Ketones Urine Occult Blood U Marijuana (THC) Screen Suspect positive A 06/04/22 06/04/22 14:35 14:35 WBC RBC Hgb Hct POC Hct MCV MCHC RDW Immature Gran % (Auto) Neut % (Auto) Lymph % (Auto) Lymph # (Auto) Seg Neutrophils % Lymphocytes % Immature Gran # Absolute Neutrophils RBC Morphology Anisocytosis Microcytosis ABG Methemoglobin 0.3 L VBG pH 7.15 L* POC VBG pH VBG pCO2 40.3 L POC VBG pCO2 at Temp VBG pO2 69.8 H POC VBG pO2 VBG HCO3 13.8 L POC VBG HCO3 VBG Total CO2 15.1 L POC VBG Total CO2 VBG O2 Saturation 86.9 H POC Venous O2 Sat VBG Base Excess -14 L POC VBG Base Excess VBG Lactic Acid Carboxyhemoglobin 2.5 H Total Hemoglobin 11.2 L POC Sodium Sodium 121 L Potassium 6.7 H* POC Chloride Chloride 64 L Carbon Dioxide 14 L POC Total CO2 Anion Gap 43.0 H POC BUN BUN Creatinine POC Creatinine Glucose POC Glucose Uric Acid Calcium POC WB Ioniz Calcium Phosphorus Magnesium 3.2 H Alkaline Phosphatase Lactate Dehydrogenase CK-MB (CK-2) Beta-Hydroxybutyrate 13.25 H Procalcitonin Urine Protein Urine Glucose (UA) Urine Ketones Urine Occult Blood U Marijuana (THC) Screen Meds: Medications Acetaminophen (Acetaminophen 325 Mg Tablet) 650 mg PO Q4HP PRN; Protocol PRN Reason: Per Pain Protocol Amlodipine Besylate (Amlodipine 5 Mg Tablet) 5 mg PO DAILY KOKO Last Admin: 06/06/22 09:01 Dose: 5 mg Calcium Carbonate/Glycine (Calcium Carbonate 500 Mg Tab.Chew) 500 mg CHEWED Q4HP PRN PRN Reason: Dyspepsia Last Admin: 06/05/22 20:45 Dose: 500 mg Clonidine HCl (Clonidine Tts 2 1 Patch Patch) 1 patch TD Mo@0900 [facility] Dextrose (Dextrose 50% 50 Ml Vial) 0 ml IV UD PRN PRN Reason: Per Sliding Scale Diagnostic Test (Pha) (Accu-Chek 1 Each Strip) 1 each FS ACHS [facility] Last Admin: 06/06/22 11:48 Dose: 1 each Famotidine (Famotidine 20 Mg Tablet) 10 mg PO BID [facility] Last Admin: 06/06/22 09:00 Dose: 10 mg Fluoxetine HCl (Fluoxetine Hcl 20 Mg Capsule) 20 mg PO QDAY [facility] Last Admin: 06/06/22 09:01 Dose: 20 mg Glucose (Dextrose 31 Gm Oral.Susp) 15 gm PO PRN PRN PRN Reason: Hypoglycemia Heparin Sodium (Porcine) (Heparin 5,000 Unit/Ml Vial) 5,000 unit SQ Q12 [facility] Last Admin: 06/06/22 09:01 Dose: 5,000 unit Insulin Glargine (Insulin Glargine, Human 1 Unit/0.01 Ml) 15 unit SQ DAILY [facility] Last Admin: 06/06/22 09:01 Dose: 15 units Insulin Human Lispro (Insulin Lispro 1 Unit/0.01 Ml Unit) 0 unit SQ [facility]; Protocol Last Admin: 06/06/22 12:06 Dose: 6 unit Insulin Human Lispro (Insulin Lispro 1 Unit/0.01 Ml Unit) 0 unit SQ AC [facility] Last Admin: 06/06/22 11:33 Dose: Not Given Labetalol HCl (Labetalol 5 Mg/Ml Ml) 10 mg IV Q10M PRN PRN Reason: hypertension Metoclopramide HCl (Metoclopramide 10 Mg/2 Ml Vial) 5 mg IV Q6HP PRN PRN Reason: Nausea And Vomiting Mirtazapine (Mirtazapine 15 Mg Tablet) 15 mg PO HS [facility] Last Admin: 06/05/22 20:03 Dose: 15 mg Ondansetron HCl (Ondansetron 4 Mg/2 Ml Vial) 4 mg IV Q4HP PRN PRN Reason: Nausea And Vomiting Last Admin: 06/05/22 19:49 Dose: 4 mg Sodium Chloride (0.9 % Sodium Chloride 10 Ml Syringe) 10 ml IV Q8 [facility] Last Admin: 06/06/22 05:09 Dose: Not Given Sucralfate (Sucralfate 1 Gm Tablet) 1 gm PO BID [facility] Last Admin: 06/06/22 09:00 Dose: 1 gm Venlafaxine HCl (Venlafaxine 75 Mg Cap.Xl.24h) 225 mg PO QAM [facility] Last Admin: 06/06/22 09:00 Dose: 225 mg ABG Interpretation ABG results: 06/04/22 06/04/22 06/05/22 14:35 17:44 05:58 ABG Methemoglobin 0.3 L 0.3 L 0.1 L VBG pH 7.15 L* 7.24 L 7.53 H VBG pCO2 40.3 L 35.9 L 36.7 L VBG pO2 69.8 H 127.4 H 131.7 H VBG HCO3 13.8 L 14.9 L 29.8 H VBG Total CO2 15.1 L 16.0 L 30.9 H VBG O2 Saturation 86.9 H 93.6 H 92.2 H VBG Base Excess -14 L -12 L 7 H 06/05/22 06/05/22 08:54 13:25 ABG Methemoglobin 0.2 L 0.1 L VBG pH 7.42 7.58 H VBG pCO2 53.3 H 29.3 L VBG pO2 49.2 H 115.5 H VBG HCO3 33.9 H 27.1 VBG Total CO2 35.5 H 28.0 VBG O2 Saturation 82.6 H 85.7 H VBG Base Excess 8 H 6 H A/P Narrative A/P Narrative: Assessment: 36 year old male admitted for for diabetic ketoacidosis and acute on chronic kidney disease injury. #Resolving acute on chronic kidney disease injury #Chronic kidney disease stage 3b-4 #Resolved diabetic ketoacidosis #Type 1 diabetes mellitus #Leukocytosis, improving #Acute on chronic anemia #Gastroparesis s/p gastric pacemaker Plan -Increase Lantus to 15 units at bedtime, prandial Humalog 1:15 unit to carb ratio. and increase SSI to medium dose. -Discontinue IV fluid. -Replace electrolytes as needed. -Monitor renal function and urine output. -Monitor WBC. -Low threshold for empiric antibiotic if the patient develops a fever or WBC continues to increase. -Nephrology signed off. -Consistent carbohydrate diet. 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 -DVT prophylaxis: Heparin SQ -Code status: Full -Disposition: Home when stable, follow-up with endocrinology. Time Spent With Patient Time: Total time spent is greater than 50% in coordination of care (as documented) at patient's floor/unit and/or counseling patient:
[2022-06-06] MEDS: MIRTAZAPINE 15 MG TABLET PO SCH (21:05)
--- NOTE | 2022-06-06 21:54 | EKG ---
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
[2022-06-07] MEDS: LABETALOL 5 MG/ML ML IV PRN ×2 (00:12→03:33)
[2022-06-07] MEDS: 0.9 % SODIUM CHLORIDE 10 ML SYRINGE IV SCH (04:38)
[2022-06-07 06:59] LABS: Hematocrit 31.8 % (40.1-51.0); Hemoglobin 10.3 g/dL (13.7-17.5); Mean Cell Volume 81.7 fL (80.0-100.0); Mean Corpuscular HGB Conc 32.4 g/dL (31.0-36.0); Mean Platelet Volume 11.1 fL (8.8-12.5); Platelet Count 223 K/mcL (140-440); RBC 3.89 M/mcL (4.63-6.08); Red Cell Distribution Width 15.3 % (11.5-14.5); WBC 5.4 K/mcL (4.5-11.0)
[2022-06-07 07:13] LABS: ALT/SGPT 9 U/L (<40); AST/SGOT 10 U/L (<40); Albumin 3.5 gm/dL (3.2-5.2); Albumin/Globulin Ratio 1.2 (1.0-2.3); Alkaline Phosphatase 119 U/L (39-117); Bilirubin,Direct < 0.2 mg/dL (0-0.3); Bilirubin,Total 0.3 mg/dL (0.1-1.0); Blood Urea Nitrogen 33 mg/dL (6-20); Calcium 9.3 mg/dL (8.6-10.4); Carbon Dioxide 24 mmol/L (22-30); Chloride 96 mmol/L (96-108); Glomerular Filtration Rate 27; Glucose 328 mg/dL (70-105); Lactate Dehydrogenase 210 U/L (135-225); Phosphorous 3.5 mg/dL (2.5-4.5); Triglycerides 153 mg/dL (<150); Uric Acid 4.8 mg/dL (2.5-8.0)
--- NOTE | 2022-06-07 07:34 | Discharge Summary ---
Discharge Provider Provider IMPORTANT FOLLOW-UP INFORMATION FOR PCP: Patient information: Note initiated : 06/07/22 at 7:31 am Service Date, if different from initiated Date: [] Patient: Mauri Levine 36 y/o M admitted on 06/04/22 for High blood sugar, seizure. Chief Complaint: [] Date of admission: 06/04/22 21:09 Discharge date: 06/07/22 Primary care physician: Flo Peña MD Consults: 06/04/22 Consult to Physician [CONS] Stat Comment: Consulting Provider: Anoop Nash Reason For Exam: Physician to Consult 06/04/22 21:24 Consult to Physician [CONS] Stat Comment: Consulting Provider: Heriberto Yadav Reason For Exam: Physician to Consult COURSE Hospital Course Hospital course: Mr. 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 The patient is not able to provide a history due to lethargy from DKA. Per EMS report the patient had two seizures today which was the reason he was brought to the ED. He received Versed after the second seizure. It sounds like the patient's insulin pump developed a failure 2-3 days prior to admission. Nephrology was consulted for the ROSALIO and recommended transfer to a higher level of care which was attempted by the ED provider however the patient was refused. Hospital medicine was consulted for admission. After discussing the patient with nephrology and in light of the transfer denial the decision was made to admit the patient for management of DKA and follow renal function closely. If renal function does not improve the patient will need to be transferred to a higher level of care for acute renal replacement therapy. 06/05 Stable overnight, high-grade temperatures but no fevers. Blood pressure elevated, added Norvasc. Diabetic ketoacidosis resolved, transition to basal bolus insulin. The patient's renal function has improved, he is making urine. Replaced potassium. WBC increased from 13.2 to 24.3. Blood cultures are obtained. Chest x-ray was normal. Urinalysis was not suggestive of UTI. 06/06 Vital stable overnight, no high-grade temps or fevers. Leukocytosis improving. The patient feels better, making urine. Acute renal failure has probably resolved as the patient's renal function is back to baseline. Increase Lantus to 15 units at bedtime, continue prandial and correction Humalog. Transfer to [facility]. 06/07 Vital stable overnight, patient is tolerating a diabetic diet well, blood sugar stable and normal anion gap remains closed at 12. Renal function improving, leukocytosis resolved. Discharged to home. Continue prior home medications at discharge. Physical exam Head: Atraumatic, normal inspection. Eyes: normal appearance, no scleral icterus. Respiratory: o respiratory distress Cardiovascular: Normal rate, S1, S2. GI/Abdominal: nontender, no guarding. Extremities: full range of motion, nontender. Neurological: CN II-XII intact, intact motor, intact sensation. Psychiatric: Normal mood Skin: warm, normal color Discharge diagnosis: Diabetic ketoacidosis Secondary discharge diagnosis: Acute on chronic kidney disease injury Time Spent with Patient Time attestation: Total time spent providing and/or coordinating discharge services: Time spent: Less than 30 minutes EXAM Constitutional Vitals: Temp Pulse Resp BP Pulse Ox O2 Del Method 96.9 F L 63 16 123/83 100 06/07/22 03:22 06/07/22 04:14 06/06/22 23:54 06/07/22 04:14 06/07/22 03:22 06/07/22 03:22 Discharge Data Data Completed and Pending Labs on day of discharge: Labs from last 24 hours 06/07/22 06/07/22 06/06/22 05:30 05:30 05:06 WBC 5.4 RBC 3.89 L Hgb 10.3 L Hct 31.8 L MCV 81.7 MCH 26.5 MCHC 32.4 RDW 15.3 H Plt Count 223 MPV 11.1 Seg Neutrophils % 81 H Lymphocytes % 12 L Monocytes % (Manual) 7 Platelet Estimate Pending Normal RBC Morphology Pending Abnormal A Anisocytosis 1+ A Sodium 132 L Potassium 4.2 Chloride 96 Carbon Dioxide 24 Anion Gap 12.0 BUN 33 H Creatinine 2.9 H GFR Calculation 27 Glucose 328 H Uric Acid 4.8 Calcium 9.3 Phosphorus 3.5 Magnesium 2.0 Total Bilirubin 0.3 Direct Bilirubin < 0.2 GGT 10 AST 10 ALT 9 Alkaline Phosphatase 119 H Lactate Dehydrogenase 210 Total Protein 6.5 Albumin 3.5 Globulin 3.0 Albumin/Globulin Ratio 1.2 Triglycerides 153 H Preliminary micro results at discharge 06/05/22 13:25 Blood Culture - Preliminary Blood 06/05/22 13:18 Blood Culture - Preliminary Blood Discharge Plan Patient/Caregiver Discharge Instructions Activity: increase activity as tolerated Diet: Consistent Carbohydrate Prescriptions: Continued insulin aspart U-100 [Novolog U-100 Insulin aspart] 100 unit/mL solution See Rx Instructions subcut TID Qty: 60 1RF Rx Instructions: subcut three times daily with meals; Moderate Dose Scale Blood Sugar (mg/dL), Units Insulin 70-130, 0 units 131-180, 4 units 181-240, 8 units 241-300, 10 units 301-350, 12 units 351-400, 16 units >400, 20 units and call MD (DME) insulin syringes (disposable) 1 mL syringe See Rx Instructions .Route Qty: 500 0RF Rx Instructions: use for insulin three times daily venlafaxine 75 mg capsule,extended release 24hr 225 mg PO QAM Qty: 90 2RF mirtazapine 15 mg tablet,disintegrating 15 mg PO HS Qty: 90 0RF Baqsimi 3 mg/actuation spray,non-aerosol 3 mg intranasal ONCE PRN (Reason: hypoglycemia) Qty: 1 0RF Rx Instructions: 1 spray intranasal as needed ondansetron 4 mg tablet,disintegrating 4 mg PO Q8H Qty: 120 0RF clonidine 0.2 mg/24 hr patch weekly 1 patch transdermal QWEEK Qty: 4 2RF Rx Instructions: Change on Mondays fluoxetine 20 mg capsule 20 mg PO QDAY Qty: 90 0RF famotidine 20 mg tablet 10 mg PO BID Qty: 90 0RF sucralfate [Carafate] 1 gram tablet 1 g PO BID Qty: 70 0RF (DME) Dexcom sensor & monitor See Rx Instructions .Route .MEDSUPPLY Qty: 1 0RF Rx Instructions: As directed promethazine [Promethegan] 25 mg suppository 25 mg MO Q6H PRN (Reason: nausea and vomiting) Qty: 12 0RF captopril 12.5 mg tablet 12.5 mg PO TID Qty: 90 11RF Rx Instructions: Skip dose if vomiting or BP < 120 mmHg (DME) blood-glucose meter Misc See Rx Instructions .Route Qty: 1 3RF Rx Instructions: use to test blood sugar 5 times daily (DME) Blood Glucose Test Strip See Rx Instructions .ROUTE .MEDSUPPLY Qty: 500 3RF Rx Instructions: use to test blood sugar 5 times daily (DME) lancets Misc See Rx Instructions .Route Qty: 500 3RF Rx Instructions: use to test blood sugar 5 times daily (DME) Ketone Urine Test Strip See Rx Instructions .Route Qty: 100 0RF Rx Instructions: use to test urine for ketones daily Follow Up Plan Follow up with: Flo Peña MD [Primary Care Provider] - Heriberto Yadav MD [Physician] - Patient Disposition: Home, Self-Care Overall status at discharge: patient is progressing back to baseline Discharge Orders: Discharge Order (Routine); Ordered 06/07/22 Ordered By: Anoop Nash
[2022-06-07] MEDS: CALCIUM CARBONATE 500 MG TAB.CHEW CHEWED PRN (08:20)
[2022-06-07] MEDS: FLUoxetine HCL 20 MG CAPSULE PO SCH (08:40)
[2022-06-07] MEDS: FAMOTIDINE 20 MG TABLET PO SCH (08:40)
[2022-06-07] MEDS: SUCRALFATE 1 GM TABLET PO SCH (08:40)
[2022-06-07] MEDS: INSULIN LISPRO 1 UNIT/0.01 ML UNIT SQ SCH ×4 (08:41→14:03)
[2022-06-07] MEDS: INSULIN GLARGINE, HUMAN 1 UNIT/0.01 ML SQ SCH (08:41)
[2022-06-07] MEDS: amLODIPine 5 MG TABLET PO SCH (08:41)
[2022-06-07] MEDS: VENLAFAXINE 75 MG CAP.XL.24H PO SCH (08:41)
[2022-06-07] MEDS: HEPARIN 5,000 UNIT/ML VIAL SQ SCH (08:42)
[2022-06-07] MEDS ORDERED: cloNIDine TTS 2 1 PATCH PATCH TD SCH (09:00)
[2022-06-07] MEDS ORDERED: HEPARIN SODIUM,PORCINE/PF 500 UNIT/5 ML SYRINGE IV ONE (11:59)
[2022-06-07 12:08] LABS: Anisocytosis 1+ (None Seen); Basophils % (Manual) 1 % (0-2); Eosinophils % (Manual) 2 % (0-7); Hypochromasia 1+ (None Seen); Lymphocytes % 22 % (15-49); Monocytes % (Manual) 6 % (1-12); Platelet Estimate NORMAL (Normal); RBC Morphology ABNORMAL (Normal); Segmented Neutrophils % 69 % (38-78)
== END 2022-06-07 13:15 | disposition home or self-care (01) | DRG 638 ==
LOC: ED 13:10 → ICU 21:09 → MEDSUR 06-06 14:53
PROVIDERS: ADMIT Internal Medicine; ATTEND Internal Medicine

== ENCOUNTER 2022-06-22 09:53 | Inpatient (IN) ==
[2022-06-22] MEDS ORDERED: 0.9 % SODIUM CHLORIDE 1,000 ML IV ONE ×2 (09:59→10:06)
[2022-06-22] MEDS ORDERED: ONDANSETRON 4 MG/2 ML VIAL IV ONE ×2 (09:59→11:43)
--- NOTE | 2022-06-22 10:09 | Emergency Department Note ---
Nausea/Vomiting/Diarrhea HPI General Chief complaint: Nausea/Vomiting/Diarrhea Stated complaint: n/v Time Seen by Provider: 06/22/22 09:59 Source: patient Mode of arrival: EMS Limitations: no limitations History of Present Illness HPI Narrative: Narrative: Patient arrived to the ED with complaints of nausea and vomiting x3 days. He also reports weakness. He states that every tries to walk he feels extremely weak. He is a type I diabetic. He does have an insulin pump. He states that his blood sugar read high today. He denies fever, chills, dysuria, hematuria, urinary frequency, cough, sputum production, cardiac chest pain, heart palpitations, known sick contacts. Patient denies any other alleviating or aggravating factors. Related Data Previous Rx's Medication Instructions Recorded Dexcom sensor & monitor #1 ea 08/27/21 acetone (urine) test (Ketone Urine #100 ea 09/10/21 Test strips) blood sugar diagnostic (Blood #500 ea 09/10/21 Glucose Test strips) blood-glucose meter #1 ea 09/10/21 lancets #500 ea 09/10/21 insulin aspart U-100 100 unit/mL See Rx Instructions subcut TID #60 01/12/22 subcutaneous solution (Novolog mL U-100 Insulin aspart) insulin syringes (disposable) 1 mL #500 ea 01/12/22 promethazine 25 mg rectal 25 mg KS Q6H PRN nausea and 04/09/22 suppository (Promethegan) vomiting #12 ea captopril 12.5 mg tablet 12.5 mg PO TID ckd, HTN, DM #90 04/20/22 tabs glucagon 3 mg/actuation nasal 3 mg intranasal ONCE PRN 04/20/22 spray (Baqsimi) hypoglycemia #1 ea ondansetron 4 mg disintegrating 4 mg PO Q8H cyclic vomiting #120 04/21/22 tablet tabs clonidine 0.2 mg/24 hr weekly 1 patch transdermal QWEEK #4 ea 04/26/22 transdermal patch fluoxetine 20 mg capsule 20 mg PO QDAY #90 caps 05/04/22 famotidine 20 mg tablet 10 mg PO BID #90 tabs 05/12/22 sucralfate 1 gram tablet (Carafate) 1 g PO BID #70 tabs 05/28/22 mirtazapine 15 mg disintegrating 15 mg PO HS #90 tabs 06/08/22 tablet venlafaxine 75 mg capsule,extended 225 mg PO QAM #90 caps 06/08/22 release 24 hr ondansetron 4 mg disintegrating 4 mg PO Q6H PRN nausea and 06/22/22 tablet vomiting #20 tabs prochlorperazine 25 mg rectal 25 mg KS BID PRN nausea and 06/22/22 suppository (Compazine) vomiting #12 ea Allergies Allergy/AdvReac Type Severity Reaction Status Date / Time NSAIDS (Non-Steroidal Allergy Unknown Unknown Verified 06/04/22 13:31 Anti-Inflamma metoclopramide [From Reglan] AdvReac Mild Agitated Verified 06/04/22 13:31 prochlorperazine AdvReac Mild "My whole Verified 06/04/22 13:31 [From Compazine] body freaks out." silver AdvReac Mild dystonic Verified 06/04/22 13:31 IV iodine contrast Allergy Unknown Unknown Uncoded 05/25/22 10:33 Review of Systems ROS ROS Narrative: Narrative: All systems ED: reviewed and negative except as stated. PFSH Narrative Patient History Narrative: Narrative: Medical/Surgical/Family History All Active Problems (Updated 06/22/22 @ 15:42 by Alok Cullen DO) Type 1 diabetes mellitus with hyperosmolar hyperglycemic state (HHS) (Acute) Acute hypokalemia (Acute) Nausea & vomiting (Acute) Acute respiratory failure with hypoxia (Acute) Acute worsening of stage 4 chronic kidney disease (Acute) Testosterone deficiency (Chronic) Nausea and vomiting (Chronic) GERD (gastroesophageal reflux disease) (Chronic) Other hammer toe(s) (acquired), left foot (Chronic) Hypertension, essential (Chronic) Hyperlipidemia (Chronic) History of neuroleptic malignant syndrome (Chronic) Dehydration (Chronic) Drug-induced nausea and vomiting (Acute) Uncontrolled type 1 diabetes mellitus with diabetic nephropathy, with long-term current use of insulin (Chronic) Cyclic vomiting syndrome (Chronic) Type 1 diabetes mellitus with stage 3 chronic kidney disease and hypertension (Chronic) Marijuana use, continuous (Chronic) CKD (chronic kidney disease) (Acute) Nephrotic range proteinuria (Chronic) Controlled type 1 diabetes mellitus with chronic kidney disease (Chronic) Port-A-Cath in place (Acute) Diabetic gastroparesis associated with type 1 diabetes mellitus (Chronic) Diabetic neuropathy associated with type 1 diabetes mellitus (Chronic) Diabetic retinopathy associated with type 1 diabetes mellitus (Chronic) Anxiety (Chronic) Back pain (Chronic) Physical deconditioning (Chronic) Malnutrition (Chronic) Acute dehydration (Acute) Acute hypokalemia (Acute) QT prolongation (Acute) Dehydration (Acute) No-show for appointment (Acute) Intractable cyclical vomiting with nausea (Acute) Diabetic gastroparesis (Chronic) ROSALIO (acute kidney injury) (Acute) Hyperglycemia (Acute) Dehydration (Acute) Major depressive disorder, recurrent (Chronic) Generalized anxiety disorder (Chronic) Trauma and stressor-related disorder (Chronic) Diabetic gastroparesis (Acute) Nausea & vomiting (Acute) Acute dehydration (Acute) Ketosis (Acute) Uncontrolled diabetes mellitus (Acute) DKA (diabetic ketoacidosis) (Acute) Hyperosmolar hyperglycemic state (HHS) (Acute) Diabetic gastroparesis (Acute) Metabolic alkalosis (Acute) Stage 2 acute kidney injury (Acute) Hyponatremia (Acute) DKA (diabetic ketoacidosis) (Acute) Has multiple sexual partners (Acute) Hyperosmolar hyperglycemic state (HHS) (Acute) Acute hypokalemia (Acute) ROSALIO (acute kidney injury) (Acute) Nausea & vomiting (Acute) Hypochloremia (Acute) Alkalosis (Acute) Acute renal failure superimposed on stage 3a chronic kidney disease (Acute) Metabolic alkalosis (Acute) Altered mental status (Acute) Depression (Acute) Acute hyperglycemia (Acute) Nausea & vomiting (Acute) Seizures (Acute) Abnormal CT of brain (Acute) Sepsis (Acute) Hyponatremia (Acute) Pneumonia (Acute) Acute renal failure (Acute) Hypokalemia (Acute) Diabetic gastroparesis (Acute) Diabetic gastroparesis (Acute) CKD stage G3b/A3, GFR 30-44 and albumin creatinine ratio >300 mg/g (Acute) Renal failure (ARF), acute on chronic (Acute) ROSALIO (acute kidney injury) (Acute) Acute hypokalemia (Acute) Acidosis (Acute) Acid-base disorder, mixed (Acute) Medical History Abdominal pain, epigastric Abnormal CT of brain Altered mental status Anxiety Back pain Chronic ulcer of left foot Coffee ground emesis Depression Diabetes mellitus type I Age 12, With foot ulcer Diabetic gastroparesis associated with type 1 diabetes mellitus Diabetic neuropathy associated with type 1 diabetes mellitus Diabetic peripheral neuropathy Diabetic retinopathy associated with type 1 diabetes mellitus DKA, type 1 Esophageal candidiasis Gastroenteritis Gastroparesis due to DM GERD (gastroesophageal reflux disease) Hallux valgus (acquired), left foot Has multiple sexual partners History of neuroleptic malignant syndrome To compazine (prochlorperazine). Tolerates promethazine without issue Hyperlipidemia Hypertension, essential labile due to unpredictable Rx absorption with gastroparesis and propensity for dehydration Hold captopril if persistent vomiting occurs or bp less than 120/80 stop coreg and nifedipine Continue clonidine patch#1 Labetalol IV PRN Hypokalemia Connie-Byrne tear Malnutrition Marijuana use, continuous Nausea and vomiting Non-pressure chronic ulcer of other part of left foot limited to breakdown of skin Other hammer toe(s) (acquired), left foot Peripheral autonomic neuropathy due to DM Physical deconditioning Seizures Sepsis Tardive dyskinesia due to metoclopramide (Reglan) Testosterone deficiency Surgical History History of hand surgery Finger repair History of toe surgery left hallux Family History Mother Atrial fibrillation Essential hypertension Sister Malignant neoplasm of female breast Maternal Grandfather Malignant neoplasm of colon Recorded 11/12/10 Father Essential hypertension Other Adopted DKA, type 1 Social History Smoking Status: Never smoker Alcohol Intake Frequency: former alcohol drinker Substance Use: former substance user Exam Narrative Narrative: Narrative: General Limitations: no limitations General appearance: Present lethargic Eye Eye: Present PERRL and EOMI ENT ENT: Present normal oropharynx and mucous membranes dry Neck Neck: Present normal inspection; Absent meningismus Chest Chest: Present normal inspection; Absent tenderness Respiratory Respiratory: Present normal lung sounds bilaterally; Absent respiratory distress Cardiovascular Cardiovascular: Present normal rhythm and tachycardia Adbominal Abdominal: Present soft Extremities Extremities: Present normal capillary refill Back Back: Absent CVA tenderness (R) or CVA tenderness (L) Neurological Neurological: Present alert and oriented X3 Psychiatric Psychiatric: Present normal affect and normal mood Skin Skin: Present warm (WNL) and intact Course Course Course Narrative: Patient was evaluated for elevated blood sugar. Blood sugar reading was greater than 700 here in the ED. Patient was bolused IV fluids and given some IV Zofran for his nausea. Patient's lactic acid was elevated upon arrival. His pH was el evated so he does not meet DKA as he is not acidotic. Did have ketones in the urine. patient had acute on chronic renal failure. His renal function did improve after IV fluids. Patient had a normal potassium at 3.5 but on repeat it went down to 3.0. Patient refused oral potassium. White cell count was unremarkable. Chest x-ray obtained with image reviewed myself no acute cardiopulmonary findings. EKG shows sinus tachycardia. The plan was to discharge patient home as he improved greatly but unfortunately he became hypoxic requiring supplemental oxygen via nasal cannula of 2 L. Again chest x- ray is unremarkable was negative for COVID and flu. Case was discussed with hospitalist who has agreed to admit the patient. Reevaluation(s) Reevaluation #1: Patient remains hemodynamic stable. No new complaints at this time. Time: 11:01 Consultations Consultation #1: Case discussed with hospitalist who has agreed to evaluate the patient for possible admission Time: 17:25 Vital Signs Vital signs: Vital Signs Temperature 98.6 F 06/22/22 09:53 Pulse Rate 114 H 06/22/22 09:53 Respiratory Rate 19 06/22/22 09:53 Blood Pressure 143/88 06/22/22 09:53 Pulse Oximetry (%) 97 06/22/22 09:53 Oxygen Delivery Method 06/22/22 09:53 Temperature 98.6 F 06/22/22 09:53 Pulse Rate 103 H 06/22/22 17:16 Respiratory Rate 13 06/22/22 17:16 Blood Pressure 151/65 06/22/22 17:16 Pulse Oximetry (%) 100 06/22/22 17:16 Oxygen Delivery Method 06/22/22 11:03 Oxygen Flow Rate (L/min) 2 06/22/22 11:03 [facility] MDM Narrative Medical decision making narrative: Narrative: Differential Diagnosis Differential Diagnosis: DKA, HHS, viral illness, Medical Records Medical records reviewed: Yes I reviewed the patient's medical records. Lab Data Lab results reviewed: Yes I reviewed the patient's lab results. Result diagrams: 06/22/22 10:28 Labs: Lab Results 06/22/22 06/22/22 06/22/22 Range/Units 10:28 10:28 10:41 WBC 12.8 H (4.5-11.0) K/mcL RBC 4.42 L (4.63-6.08) M/mcL Hgb 11.6 L (13.7-17.5) g/dL Hct 35.6 L (40.1-51.0) % POC Hct (41-55) MCV 80.5 (80.0-100.0) fL MCH 26.2 (26.0-34.0) pg MCHC 32.6 (31.0-36.0) g/dL RDW 15.9 H (11.5-14.5) % Plt Count 503 H (140-440) K/mcL MPV 10.6 (8.8-12.5) fL Immature Gran % (Auto) 0.5 (0.0-0.5) % Neut % (Auto) 81.6 H (38.0-78.0) % Lymph % (Auto) 8.8 L (15.5-49.0) % Chaves % (Auto) 8.8 (1.0-12.0) % Eos % (Auto) 0 (0.0-7.0) % Baso % (Auto) 0.3 (0.0-2.0) % Lymph # (Auto) 1.12 L (1.50-4.80) K/mcL Chaves # (Auto) 1.12 H (0.10-0.90) K/mcL Eos # (Auto) 0 (0.00-0.70) K/mcL Baso # (Auto) 0.04 (0.00-0.30) K/mcL Immature Gran # 0.07 H (0.00-0.05) K/mcl Absolute Neutrophils 10.40 H (1.80-8.00) K/mcL POC VBG pH 7.68 H* (7.32-7.42) POC VBG pCO2 at Temp 49.9 (41-51) POC VBG pO2 28 (25-40) POC VBG HCO3 58.4 H* (24-28) POC VBG Total CO2 > 50.0 H* (25-29) POC Venous O2 Sat 65.0 (40-70) POC VBG Base Excess > 30.0 H* (-2-2) VBG Lactic Acid 3.2 H (0.5-2) POC Sodium (133-145) POC Potassium (3.3-5.1) POC Chloride (96-108) POC Total CO2 (22-30) POC BUN (6-20) POC Creatinine (0.6-1.2) POC Glucose (70-105) POC WB Ioniz Calcium (1.16-1.32) Total Bilirubin 0.4 (0.1-1.0) mg/dL Direct Bilirubin < 0.2 (0-0.3) mg/dL AST 10 (<40) U/L ALT 13 (<40) U/L Alkaline Phosphatase 161 H (39-117) U/L Total Protein 7.7 (5.9-8.4) gm/dL Albumin 4.1 (3.2-5.2) gm/dL Globulin 3.6 (2.2-3.7) gm/dL 06/22/22 06/22/22 06/22/22 Range/Units 10:45 14:05 14:06 WBC (4.5-11.0) K/mcL RBC (4.63-6.08) M/mcL Hgb (13.7-17.5) g/dL Hct (40.1-51.0) % POC Hct 40.0 L 35.0 L (41-55) MCV (80.0-100.0) fL MCH (26.0-34.0) pg MCHC (31.0-36.0) g/dL RDW (11.5-14.5) % Plt Count (140-440) K/mcL MPV (8.8-12.5) fL Immature Gran % (Auto) (0.0-0.5) % Neut % (Auto) (38.0-78.0) % Lymph % (Auto) (15.5-49.0) % Chaves % (Auto) (1.0-12.0) % Eos % (Auto) (0.0-7.0) % Baso % (Auto) (0.0-2.0) % Lymph # (Auto) (1.50-4.80) K/mcL Chaves # (Auto) (0.10-0.90) K/mcL Eos # (Auto) (0.00-0.70) K/mcL Baso # (Auto) (0.00-0.30) K/mcL Immature Gran # (0.00-0.05) K/mcl Absolute Neutrophils (1.80-8.00) K/mcL POC VBG pH 7.59 H (7.32-7.42) POC VBG pCO2 at Temp 52.7 H (41-51) POC VBG pO2 45 H (25-40) POC VBG HCO3 50.4 H* (24-28) POC VBG Total CO2 > 50.0 H* (25-29) POC Venous O2 Sat 86.0 H (40-70) POC VBG Base Excess 29.0 H* (-2-2) VBG Lactic Acid 2.0 (0.5-2) POC Sodium 126 L 135 (133-145) POC Potassium 3.5 3.0 L (3.3-5.1) POC Chloride 70 L 80 L (96-108) POC Total CO2 45.0 H* 43.0 H* (22-30) POC BUN 56 H 50 H (6-20) POC Creatinine 4.5 H 4.1 H (0.6-1.2) POC Glucose > 700 H* 491 H* (70-105) POC WB Ioniz Calcium 0.79 L 0.81 L (1.16-1.32) Total Bilirubin (0.1-1.0) mg/dL Direct Bilirubin (0-0.3) mg/dL AST (<40) U/L ALT (<40) U/L Alkaline Phosphatase (39-117) U/L Total Protein (5.9-8.4) gm/dL Albumin (3.2-5.2) gm/dL Globulin (2.2-3.7) gm/dL 06/22/22 Range/Units 15:52 WBC (4.5-11.0) K/mcL RBC (4.63-6.08) M/mcL Hgb (13.7-17.5) g/dL Hct (40.1-51.0) % POC Hct 33.0 L (41-55) MCV (80.0-100.0) fL MCH (26.0-34.0) pg MCHC (31.0-36.0) g/dL RDW (11.5-14.5) % Plt Count (140-440) K/mcL MPV (8.8-12.5) fL Immature Gran % (Auto) (0.0-0.5) % Neut % (Auto) (38.0-78.0) % Lymph % (Auto) (15.5-49.0) % Chaves % (Auto) (1.0-12.0) % Eos % (Auto) (0.0-7.0) % Baso % (Auto) (0.0-2.0) % Lymph # (Auto) (1.50-4.80) K/mcL Chaves # (Auto) (0.10-0.90) K/mcL Eos # (Auto) (0.00-0.70) K/mcL Baso # (Auto) (0.00-0.30) K/mcL Immature Gran # (0.00-0.05) K/mcl Absolute Neutrophils (1.80-8.00) K/mcL POC VBG pH (7.32-7.42) POC VBG pCO2 at Temp (41-51) POC VBG pO2 (25-40) POC VBG HCO3 (24-28) POC VBG Total CO2 (25-29) POC Venous O2 Sat (40-70) POC VBG Base Excess (-2-2) VBG Lactic Acid (0.5-2) POC Sodium 135 (133-145) POC Potassium 3.4 (3.3-5.1) POC Chloride 80 L (96-108) POC Total CO2 41.0 H (22-30) POC BUN 52 H (6-20) POC Creatinine 4.1 H (0.6-1.2) POC Glucose 594 H* (70-105) POC WB Ioniz Calcium 0.81 L (1.16-1.32) Total Bilirubin (0.1-1.0) mg/dL Direct Bilirubin (0-0.3) mg/dL AST (<40) U/L ALT (<40) U/L Alkaline Phosphatase (39-117) U/L Total Protein (5.9-8.4) gm/dL Albumin (3.2-5.2) gm/dL Globulin (2.2-3.7) gm/dL ED POC Tests ED POC Tests: GEGE - Influenza A Negative GEGE - Influenza B Negative GEGE - SARS Antigen Negative Radiology Data Radiology results reviewed: Yes I reviewed the patient's radiology results. Radiology results narrative: Chest x-ray obtained with image reviewed myself, agree with radiologist to rotation EKG Data EKG #1: EKG attestation: Yes I reviewed and interpreted this EKG. EKG shows normal: sinus rhythm Rate: tachycardia (109) Rhythm: NSR [place]/QRS: normal P waves: PAN Heart block present: None ST segment elevation in: None ST segment depression in: None QTc: prolonged Interpretation: no acute changes Core Measures AMI Core Measures Followed: Yes Discharge Plan Patient/Caregiver Discharge Instructions Pt seen by NURSE RECRUITER/PA only: No Clinical Impression: Type 1 diabetes mellitus with hyperosmolar hyperglycemic state (HHS), Acute hypokalemia, Nausea & vomiting, Acute respiratory failure with hypoxia Patient Disposition: Xfer As Outpt/Obs ([facility]) Condition: Fair Follow up with: Flo Peña MD [Primary Care Provider] - 06/25/22 ([facility]) Prescriptions: New ondansetron 4 mg tablet,disintegrating 4 mg PO Q6H PRN (Reason: nausea and vomiting) Qty: 20 0RF prochlorperazine [Compazine] 25 mg suppository 25 mg KS BID PRN (Reason: nausea and vomiting) Qty: 12 0RF No Action insulin aspart U-100 [Novolog U-100 Insulin aspart] 100 unit/mL solution See Rx Instructions subcut TID Qty: 60 1RF Rx Instructions: subcut three times daily with meals; Moderate Dose Scale Blood Sugar (mg/dL), Units Insulin 70-130, 0 units 131-180, 4 units 181-240, 8 units 241-300, 10 units 301-350, 12 units 351-400, 16 units >400, 20 units and call MD ([facility]) insulin syringes (disposable) 1 mL syringe See Rx Instructions .Route Qty: 500 0RF Rx Instructions: use for insulin three times daily Baqsimi 3 mg/actuation spray,non-aerosol 3 mg intranasal ONCE PRN (Reason: hypoglycemia) Qty: 1 0RF Rx Instructions: 1 spray intranasal as needed ondansetron 4 mg tablet,disintegrating 4 mg PO Q8H Qty: 120 0RF clonidine 0.2 mg/24 hr patch weekly 1 patch transdermal QWEEK Qty: 4 2RF Rx Instructions: Change on Mondays fluoxetine 20 mg capsule 20 mg PO QDAY Qty: 90 0RF famotidine 20 mg tablet 10 mg PO BID Qty: 90 0RF sucralfate [Carafate] 1 gram tablet 1 g PO BID Qty: 70 0RF venlafaxine 75 mg capsule,extended release 24hr 225 mg PO QAM Qty: 90 5RF mirtazapine 15 mg tablet,disintegrating 15 mg PO HS Qty: 90 0RF (DME) Dexcom sensor & monitor See Rx Instructions .Route .MEDSUPPLY Qty: 1 0RF Rx Instructions: As directed promethazine [Promethegan] 25 mg suppository 25 mg KS Q6H PRN (Reason: nausea and vomiting) Qty: 12 0RF captopril 12.5 mg tablet 12.5 mg PO TID Qty: 90 11RF Rx Instructions: Skip dose if vomiting or BP < 120 mmHg (DME) blood-glucose meter Misc See Rx Instructions .Route Qty: 1 3RF Rx Instructions: use to test blood sugar 5 times daily (DME) Blood Glucose Test Strip See Rx Instructions .ROUTE .MEDSUPPLY Qty: 500 3RF Rx Instructions: use to test blood sugar 5 times daily (DME) lancets Misc See Rx Instructions .Route Qty: 500 3RF Rx Instructions: use to test blood sugar 5 times daily (DME) Ketone Urine Test Strip See Rx Instructions .Route Qty: 100 0RF Rx Instructions: use to test urine for ketones daily
--- NOTE | 2022-06-22 10:28 | XRay Report ---
INDICATION: tachycardia TECHNIQUE: AP portable semiupright chest x-ray COMPARISON: Previous examinations dated 06/04/2022, 05/18/2022 FINDINGS:There is a right-sided infusion port and small caliber catheter with its tip in the superior vena cava. This is unchanged. Lungs:Lungs are negative. No focal pulmonary parenchymal infiltrate or mass Heart, vascular:No significant cardiomegaly. Pulmonary vascularity is normal. No pulmonary edema or pulmonary congestion Mediastinum, barbara:No mediastinal widening. No hilar mass Pleura:No pleural fluid. No pleural-based mass or calcification Skeletal:Negative. IMPRESSION: Negative AP chest x-ray Interpreted and Authenticated by: Demetrius Greenfield 06/22/22
[2022-06-22 10:50] LABS: POC Blood Urea Nitrogen 56 (6-20); POC Calcium, Ionized 0.79 (1.16-1.32); POC Chloride 70 (96-108); POC Creatinine 4.5 (0.6-1.2); POC Glucose, Random > 700 (70-105); POC Potassium 3.5 (3.3-5.1); POC Sodium 126 (133-145)
[2022-06-22] MEDS ORDERED: INSULIN REGULAR, HUMAN 1 UNIT/0.01 ML UNIT IV ONE (10:52)
[2022-06-22 11:23] LABS: Basophils # (Auto) 0.04 K/mcL (0.00-0.30); Basophils % (Auto) 0.3 % (0.0-2.0); Eosinophils # (Auto) 0 K/mcL (0.00-0.70); Eosinophils % (Auto) 0 % (0.0-7.0); Hematocrit 35.6 % (40.1-51.0); Hemoglobin 11.6 g/dL (13.7-17.5); Lymphocytes # (Auto) 1.12 K/mcL (1.50-4.80); Lymphocytes % (Auto) 8.8 % (15.5-49.0); Mean Cell Volume 80.5 fL (80.0-100.0); Mean Corpuscular HGB Conc 32.6 g/dL (31.0-36.0); Mean Platelet Volume 10.6 fL (8.8-12.5); Monocytes # (Auto) 1.12 K/mcL (0.10-0.90); Monocytes % (Auto) 8.8 % (1.0-12.0); Neutrophils % (Auto) 81.6 % (38.0-78.0); Platelet Count 503 K/mcL (140-440); RBC 4.42 M/mcL (4.63-6.08); Red Cell Distribution Width 15.9 % (11.5-14.5); WBC 12.8 K/mcL (4.5-11.0)
[2022-06-22 11:47] LABS: ALT/SGPT 13 U/L (<40); AST/SGOT 10 U/L (<40); Albumin 4.1 gm/dL (3.2-5.2); Alkaline Phosphatase 161 U/L (39-117); Bilirubin,Direct < 0.2 mg/dL (0-0.3); Bilirubin,Total 0.4 mg/dL (0.1-1.0); Globulin 3.6 gm/dL (2.2-3.7)
[2022-06-22] MEDS: 0.9 % SODIUM CHLORIDE 1,000 ML IV SCH ×2 (12:52→17:01)
[2022-06-22] MEDS ORDERED: diphenhydrAMINE 50 MG/ML VIAL IV ONE (13:35)
[2022-06-22] MEDS ORDERED: MAG HYDROX/AL HYDROX/SIMETH 30 ML ORAL.SUSP PO ONE (13:51)
[2022-06-22 14:08] LABS: POC Calcium, Ionized 0.81 (1.16-1.32); POC Creatinine 4.1 (0.6-1.2)
[2022-06-22] MEDS ORDERED: POTASSIUM CHLORIDE 20 MEQ TABLET PO ONE (14:12)
[2022-06-22 15:57] LABS: POC Calcium, Ionized 0.81 (1.16-1.32); POC Creatinine 4.1 (0.6-1.2); POC Potassium 3.4 (3.3-5.1)
[2022-06-22] MEDS ORDERED: INSULIN REGULAR, HUMAN 50 UNIT in 0.9 % SODIUM CHLORIDE 99.5 ML IV SCH (16:00)
[2022-06-22] MEDS ORDERED: PHENobarb/HYOSCY/ATROPINE/SCOP 1 DOSE BOTTLE PO ONE (16:03)
--- NOTE | 2022-06-22 18:25 | Internal Med History&Physical ---
HPI History of Present Illness Patient information: Note initiated : 06/22/22 at 6:10 pm Service Date, if different from initiated Date: [] Patient: Mauri Levine a 36 y/o M admitted on for n/v. Chief Complaint: [nausea vomiting] Chief complaint: nausea vomiting History of present illness: Mr. Levine is a 36 year old M history of type 1 diabetes mellitus, chronic kidney disease stage IV, depression, presented with 3-day history of nausea vomiting and epigastric abdominal pain whenever he vomits. He was recently admitted in our facility for DKA 3 weeks ago. Over the past 3 days, he is complain of nausea, vomiting, and epigastric abdominal pain whenever he vomits. He also has decreased oral intake due to his symptoms. Labs significant for leukocytosis with WBC 12.8. H&H 11.6/35.6. VBG showing pH 7.59. bicarb 50.4, anion gap 14, blood glucose >700 with repeat of 594. Serum Cr levl 4.5, with repeat of 4.1. Urine analysis results pending. Chest x-ray negative for any acute pathologies. Admission request was called for acute chest and acute on chronic kidney injury. Constitutional Constitutional: Present weakness; Absent chills, excessive sweating, fatigue or fever(s) EENT Eyes: Absent blurry vision, change in vision, loss of vision or other visual disturbances Ears: Absent decreased hearing or tinnitus Nose, mouth and throat: Absent abnormal hearing, dry mouth, headache(s), nasal congestion or sore throat Cardiovascular Cardiovascular: Absent chest pain, chest pain at rest, edema, irregular heart rhythm or palpatations Respiratory Respiratory: Present dyspnea; Absent cough or wheezing Gastrointestinal Gastrointestinal: Present nausea and vomiting; Absent abdominal pain, constipation or diarrhea Musculoskeletal Musculoskeletal: Absent back pain, deformity, limited range of motion, muscle cramps, muscle weakness or numbness Integumentary Integumentary: Absent lesions, rash or wounds Neurological Neurological: Absent focal weakness, headache(s) or numbness Psychiatric Psychiatric: Absent anxiety, depression or hallucinations PFSH PFSH All Active Problems (Updated 06/22/22 @ 18:22 by Mustapha Freeman MD) Anemia associated with stage 4 chronic renal failure (Acute) Type 1 diabetes mellitus with hyperosmolar hyperglycemic state (HHS) (Acute) Type 1 diabetes mellitus with hyperosmolar hyperglycemic state (HHS) (Acute) Acute hypokalemia (Acute) Nausea & vomiting (Acute) Acute respiratory failure with hypoxia (Acute) Acute worsening of stage 4 chronic kidney disease (Acute) Testosterone deficiency (Chronic) Nausea and vomiting (Chronic) GERD (gastroesophageal reflux disease) (Chronic) Other hammer toe(s) (acquired), left foot (Chronic) Hypertension, essential (Chronic) Hyperlipidemia (Chronic) History of neuroleptic malignant syndrome (Chronic) Dehydration (Chronic) Drug-induced nausea and vomiting (Acute) Uncontrolled type 1 diabetes mellitus with diabetic nephropathy, with long-term current use of insulin (Chronic) Cyclic vomiting syndrome (Chronic) Type 1 diabetes mellitus with stage 3 chronic kidney disease and hypertension (Chronic) Marijuana use, continuous (Chronic) CKD (chronic kidney disease) (Acute) Nephrotic range proteinuria (Chronic) Controlled type 1 diabetes mellitus with chronic kidney disease (Chronic) Port-A-Cath in place (Acute) Diabetic gastroparesis associated with type 1 diabetes mellitus (Chronic) Diabetic neuropathy associated with type 1 diabetes mellitus (Chronic) Diabetic retinopathy associated with type 1 diabetes mellitus (Chronic) Anxiety (Chronic) Back pain (Chronic) Physical deconditioning (Chronic) Malnutrition (Chronic) Acute dehydration (Acute) Acute hypokalemia (Acute) QT prolongation (Acute) Dehydration (Acute) No-show for appointment (Acute) Intractable cyclical vomiting with nausea (Acute) Diabetic gastroparesis (Chronic) ROSALIO (acute kidney injury) (Acute) Hyperglycemia (Acute) Dehydration (Acute) Major depressive disorder, recurrent (Chronic) Generalized anxiety disorder (Chronic) Trauma and stressor-related disorder (Chronic) Diabetic gastroparesis (Acute) Nausea & vomiting (Acute) Acute dehydration (Acute) Ketosis (Acute) Uncontrolled diabetes mellitus (Acute) DKA (diabetic ketoacidosis) (Acute) Hyperosmolar hyperglycemic state (HHS) (Acute) Diabetic gastroparesis (Acute) Metabolic alkalosis (Acute) Stage 2 acute kidney injury (Acute) Hyponatremia (Acute) DKA (diabetic ketoacidosis) (Acute) Has multiple sexual partners (Acute) Hyperosmolar hyperglycemic state (HHS) (Acute) Acute hypokalemia (Acute) ROSALIO (acute kidney injury) (Acute) Nausea & vomiting (Acute) Hypochloremia (Acute) Alkalosis (Acute) Acute renal failure superimposed on stage 3a chronic kidney disease (Acute) Metabolic alkalosis (Acute) Altered mental status (Acute) Depression (Acute) Acute hyperglycemia (Acute) Nausea & vomiting (Acute) Seizures (Acute) Abnormal CT of brain (Acute) Sepsis (Acute) Hyponatremia (Acute) Pneumonia (Acute) Acute renal failure (Acute) Hypokalemia (Acute) Diabetic gastroparesis (Acute) Diabetic gastroparesis (Acute) CKD stage G3b/A3, GFR 30-44 and albumin creatinine ratio >300 mg/g (Acute) Renal failure (ARF), acute on chronic (Acute) ROSALIO (acute kidney injury) (Acute) Acute hypokalemia (Acute) Acidosis (Acute) Acid-base disorder, mixed (Acute) Medical History Abdominal pain, epigastric Abnormal CT of brain Altered mental status Anxiety Back pain Chronic ulcer of left foot Coffee ground emesis Depression Diabetes mellitus type I Age 12, With foot ulcer Diabetic gastroparesis associated with type 1 diabetes mellitus Diabetic neuropathy associated with type 1 diabetes mellitus Diabetic peripheral neuropathy Diabetic retinopathy associated with type 1 diabetes mellitus DKA, type 1 Esophageal candidiasis Gastroenteritis Gastroparesis due to DM GERD (gastroesophageal reflux disease) Hallux valgus (acquired), left foot Has multiple sexual partners History of neuroleptic malignant syndrome To compazine (prochlorperazine). Tolerates promethazine without issue Hyperlipidemia Hypertension, essential labile due to unpredictable Rx absorption with gastroparesis and propensity for dehydration Hold captopril if persistent vomiting occurs or bp less than 120/80 stop coreg and nifedipine Continue clonidine patch#1 Labetalol IV PRN Hypokalemia Connie-Byrne tear Malnutrition Marijuana use, continuous Nausea and vomiting Non-pressure chronic ulcer of other part of left foot limited to breakdown of skin Other hammer toe(s) (acquired), left foot Peripheral autonomic neuropathy due to DM Physical deconditioning Seizures Sepsis Tardive dyskinesia due to metoclopramide (Reglan) Testosterone deficiency Surgical History History of hand surgery Finger repair History of toe surgery left hallux Family History Mother Atrial fibrillation Essential hypertension Sister Malignant neoplasm of female breast Maternal Grandfather Malignant neoplasm of colon Recorded 11/12/10 Father Essential hypertension Other Adopted DKA, type 1 Social History adopted: Yes household members: family housing: other details: [place] on his parents property marital status: single occupational status: disabled occupation: On disability since 2016 physical activity: walking smoking status: Never smoker alcohol intake frequency: former alcohol drinker substance use type: former substance user seatbelt use: always MEDS/ALLERGIES Home Medications and Allergies Home Medications Medication Instructions Recorded Confirmed Type Dexcom sensor & monitor #1 ea 08/27/21 06/08/22 Rx acetone (urine) test (Ketone Urine #100 ea 09/10/21 06/08/22 Rx Test strips) blood sugar diagnostic (Blood #500 ea 09/10/21 06/08/22 Rx Glucose Test strips) blood-glucose meter #1 ea 09/10/21 06/08/22 Rx lancets #500 ea 09/10/21 06/08/22 Rx insulin aspart U-100 100 unit/mL See Rx Instructions subcut TID #60 01/12/22 06/08/22 Rx subcutaneous solution (Novolog mL U-100 Insulin aspart) insulin syringes (disposable) 1 mL #500 ea 01/12/22 06/08/22 Rx promethazine 25 mg rectal 25 mg [place] Q6H PRN nausea and 04/09/22 06/08/22 Rx suppository (Promethegan) vomiting #12 ea captopril 12.5 mg tablet 12.5 mg PO TID ckd, HTN, DM #90 04/20/22 06/08/22 Rx tabs glucagon 3 mg/actuation nasal 3 mg intranasal ONCE PRN 04/20/22 06/08/22 Rx spray (Baqsimi) hypoglycemia #1 ea ondansetron 4 mg disintegrating 4 mg PO Q8H cyclic vomiting #120 04/21/22 06/08/22 Rx tablet tabs clonidine 0.2 mg/24 hr weekly 1 patch transdermal QWEEK #4 ea 04/26/22 06/08/22 Rx transdermal patch fluoxetine 20 mg capsule 20 mg PO QDAY #90 caps 05/04/22 06/08/22 Rx famotidine 20 mg tablet 10 mg PO BID #90 tabs 05/12/22 06/08/22 Rx sucralfate 1 gram tablet (Carafate) 1 g PO BID #70 tabs 05/28/22 06/08/22 Rx mirtazapine 15 mg disintegrating 15 mg PO HS #90 tabs 06/08/22 Rx tablet venlafaxine 75 mg capsule,extended 225 mg PO QAM #90 caps 06/08/22 Rx release 24 hr ondansetron 4 mg disintegrating 4 mg PO Q6H PRN nausea and 06/22/22 Rx tablet vomiting #20 tabs prochlorperazine 25 mg rectal 25 mg [place] BID PRN nausea and 06/22/22 Rx suppository (Compazine) vomiting #12 ea Allergies Allergy/AdvReac Type Severity Reaction Status Date / Time NSAIDS (Non-Steroidal Allergy Unknown Unknown Verified 06/04/22 13:31 Anti-Inflamma metoclopramide [From Reglan] AdvReac Mild Agitated Verified 06/04/22 13:31 prochlorperazine AdvReac Mild "My whole Verified 06/04/22 13:31 [From Compazine] body freaks out." silver AdvReac Mild dystonic Verified 06/04/22 13:31 IV iodine contrast Allergy Unknown Unknown Uncoded 05/25/22 10:33 EXAM Constitutional Vitals: Temp Pulse Resp BP Pulse Ox O2 Del Method O2 Flow Rate 37.0 C 103 H 13 151/65 100 2 06/22/22 09:53 06/22/22 17:16 06/22/22 17:16 06/22/22 17:16 06/22/22 17:16 06/22/22 11:03 06/22/22 11:03 General appearance: cooperative and mild distress Head Head exam: Present atraumatic and normocephalic Eye Eye exam: Present EOMI and PERRL ENT ENT exam: Present mucous membranes moist, normal exam and normal external ear exam Neck Neck exam: Present normal inspection; Absent lymphadenopathy, tenderness or thyromegaly Respiratory Respiratory exam: Absent accessory muscle use, respiratory distress or wheezes Cardiovascular Cardiovascular exam: Present tachycardia; Absent JVD GI/Abdominal GI/Abdominal exam: Present normal bowel sounds and soft; Absent organomegaly or tenderness Rectal Rectal exam: Present deferred Extremities Exam Extremities exam: Present full ROM, normal capillary refill and normal inspection; Absent tenderness Neurological Exam Neurological exam: Present alert, CN II-XII intact and oriented X3; Absent motor sensory deficit Psychiatric Psychiatric exam: Present normal affect and normal mood; Absent anxious or depressed Skin Skin exam: Present dry and intact DATA Data Completed and Pending Labs: Labs from last 24 hours 06/22/22 06/22/22 06/22/22 15:52 14:06 14:05 WBC RBC Hgb Hct POC Hct 33.0 L 35.0 L MCV MCH MCHC RDW Plt Count MPV Immature Gran % (Auto) Neut % (Auto) Lymph % (Auto) Quay % (Auto) Eos % (Auto) Baso % (Auto) Lymph # (Auto) Quay # (Auto) Eos # (Auto) Baso # (Auto) Immature Gran # Absolute Neutrophils POC VBG pH 7.59 H POC VBG pCO2 at Temp 52.7 H POC VBG pO2 45 H POC VBG HCO3 50.4 H* POC VBG Total CO2 > 50.0 H* POC Venous O2 Sat 86.0 H POC VBG Base Excess 29.0 H* VBG Lactic Acid 2.0 POC Sodium 135 135 POC Potassium 3.4 3.0 L POC Chloride 80 L 80 L POC Total CO2 41.0 H 43.0 H* POC BUN 52 H 50 H POC Creatinine 4.1 H 4.1 H POC Glucose 594 H* 491 H* POC WB Ioniz Calcium 0.81 L 0.81 L Total Bilirubin Direct Bilirubin AST ALT Alkaline Phosphatase Total Protein Albumin Globulin 06/22/22 06/22/22 06/22/22 10:45 10:41 10:28 WBC RBC Hgb Hct POC Hct 40.0 L MCV MCH MCHC RDW Plt Count MPV Immature Gran % (Auto) Neut % (Auto) Lymph % (Auto) Quay % (Auto) Eos % (Auto) Baso % (Auto) Lymph # (Auto) Quay # (Auto) Eos # (Auto) Baso # (Auto) Immature Gran # Absolute Neutrophils POC VBG pH 7.68 H* POC VBG pCO2 at Temp 49.9 POC VBG pO2 28 POC VBG HCO3 58.4 H* POC VBG Total CO2 > 50.0 H* POC Venous O2 Sat 65.0 POC VBG Base Excess > 30.0 H* VBG Lactic Acid 3.2 H POC Sodium 126 L POC Potassium 3.5 POC Chloride 70 L POC Total CO2 45.0 H* POC BUN 56 H POC Creatinine 4.5 H POC Glucose > 700 H* POC WB Ioniz Calcium 0.79 L Total Bilirubin 0.4 Direct Bilirubin < 0.2 AST 10 ALT 13 Alkaline Phosphatase 161 H Total Protein 7.7 Albumin 4.1 Globulin 3.6 06/22/22 10:28 WBC 12.8 H RBC 4.42 L Hgb 11.6 L Hct 35.6 L POC Hct MCV 80.5 MCH 26.2 MCHC 32.6 RDW 15.9 H Plt Count 503 H MPV 10.6 Immature Gran % (Auto) 0.5 Neut % (Auto) 81.6 H Lymph % (Auto) 8.8 L Quay % (Auto) 8.8 Eos % (Auto) 0 Baso % (Auto) 0.3 Lymph # (Auto) 1.12 L Quay # (Auto) 1.12 H Eos # (Auto) 0 Baso # (Auto) 0.04 Immature Gran # 0.07 H Absolute Neutrophils 10.40 H POC VBG pH POC VBG pCO2 at Temp POC VBG pO2 POC VBG HCO3 POC VBG Total CO2 POC Venous O2 Sat POC VBG Base Excess VBG Lactic Acid POC Sodium POC Potassium POC Chloride POC Total CO2 POC BUN POC Creatinine POC Glucose POC WB Ioniz Calcium Total Bilirubin Direct Bilirubin AST ALT Alkaline Phosphatase Total Protein Albumin Globulin A/P Assessment and plan (1) Renal failure (ARF), acute on chronic: Status: Acute Comment: Established patter on N/V dehydration and AFR (2) Acid-base disorder, mixed: Status: Acute Comment: Not sure what the missing anion is but suspect some ketone bodies, some organic anions for decreased GFR like PO4 and SO4. Osmolar gap was <10 so ethylene glycol, MeOH and Isopropyl alcolhol are unlikely. Could check for d-Lactate with bacterial overggrowth from DM (3) Type 1 diabetes mellitus with hyperosmolar hyperglycemic state (HHS): Status: Acute (4) GERD (gastroesophageal reflux disease): Status: Chronic Qualifiers: Esophagitis presence: esophagitis presence not specified Qualified Code(s): K21.9 - Gastro-esophageal reflux disease without esophagitis (5) Depression: Status: Acute (6) Anemia associated with stage 4 chronic renal failure: Status: Acute Narrative A/P Narrative: Assessment and Plans: 1. Hyperosmolar hyperglycemic state associated with type 1 diabetes mellitus: Inpatient ICU with telemetry HgA1c d/c insulin pump and transition to insulin drip NPO IV fluid with the following: NS w/ KCl 20mEq @250cc/hr when anion gap is elevated (>14) and blood glucose >=200 D5 1/2NS w/ KCl 20mEq @250cc/hr when anion gap is elevated (>14) and blood glucose <200 Accu Check q1hr BMP q6hr Diabetes education referral [place] Phenergan 2. Acute on kidney kidney disease: Avoid nephrotoxic agents Consult organ installer Dr. Mills, recs. appreciated IV fluid, see above Serial chemistry to trend kidney functions, see above 3. Anemia associated with chronic kidney disease IV: cbc w/ auto diff in the morning to trend H/H 4. GERD: Pepcid 5. Depression: Fluoxetine Mirtazapine Venlafaxine GI ppx: Pepcid DVT ppx: Heparin Code status: Full Prognosis: extremely guarded Disposition: inpatient ICU Critical Care Time: 60min Time Spent With Patient Time: Total time spent is greater than 50% in coordination of care (as documented) at patient's floor/unit and/or counseling patient: Total time spent with greater than 50% in coordination of care (as documented) at patient's floor/unit and/or counseling patient:: 50 - 70 minutes Critical Care Time: Yes Total Critical Care Time: 60
[2022-06-22] MEDS ORDERED: POTASSIUM CHLORIDE 20 MEQ in 0.45 % SODIUM CHLORIDE 1,000 ML IV PRN (18:52)
--- NOTE | 2022-06-22 18:55 | Nephrology Progress Note ---
SUBJECTIVE Subjective Patient information: Note initiated : 06/22/22 at 6:40 pm Service Date, if different from initiated Date: [] Patient: Mauri Levine 36 y/o M admitted on for n/v. Chief Complaint: [N,V] Principal diagnosis: DKA, cyclic vomiting syndrome with THC abuse, dehydration, mixed metabolic, Interval history: This patient is a 36-year-old "brittle" diabetic who used to have similar presentations over and over to [facility] but they were able to refer him down to the [facility] where he is continued the same behavior leading to recurrent episodes of THC induced cyclic vomiting, this leads to dehydration and a metabolic alkalosis (contraction alkalosis) which often hides his anion gap positive diabetic ketoacidosis as it has today. Dehydration leads to acute on chronic renal failure with the acute component representing a severe prerenal azotemia that corrects with volume expansion and stopping any medications like ABBE inhibitor's or nonsteroidal anti-inflammatories, leaving him with his baseline CKD 3-4 with diabetic renal disease and proteinuria. While he carries the diagnosis of diabetic gastroparesis that is an error, in my opinion, as he has had at least 1 and probably 2 normal nuclear medicine gastric emptying times, 1 done at [facility] and I think 1 done at [facility] A constant finding is he has never had a negative urine tox screen for marijuana/THC. Explained to his mother (I believe he is adopted) and the patient and the clearest of terms that as long as he continues to use THC products he will continue to experience cyclic vomiting, recurrent dehydration with acute on chronic renal failure, diabetic ketoacidosis, and progress slowly to a life of dialysis. Looking at his compliance I do not expect him to thrive on dialysis nor will he be a candidate for a transplant. His only hope is to completely turn his life around, quit abusing THC containing products, and start using the tools that have been given to him such as insulin pumps and continuous glucose monitors to take better control of himself. To do anything else is a sisyphean effort as shown ad nauseam in his medical record. Serum Creatinine CXR on 06/22/2022 Urine Drug Screen UPCR Pertinent ROS: N/V Poor po intakke High blood sugar Rest as per ED and Hospital medicine MDs Constitutional Vitals: Vital Signs Temp Pulse Resp BP Pulse Ox O2 Del Method O2 Flow Rate 37.0 C 104 H 20 170/86 100 2 06/22/22 09:53 06/22/22 18:15 06/22/22 18:15 06/22/22 18:15 06/22/22 18:15 06/22/22 11:03 06/22/22 11:03 Period Temp Pulse Resp BP Sys/Menard Pulse Ox O2 Del Method O2 Flow Rate Last 24 Hr 37.0 C 79-122 13-24 110-183/64-102 68-100 Nasal Cannula-Room Air 2 Intake and Output 06/22/22 06/22/22 06/22/22 03:59 11:59 19:59 Intake Total 1000 2001 Balance 1000 2001 Weight 68.492 kg Patient Weight 06/23/22 03:59 Weight 68.492 kg Intake & Output: Intake & Output 06/22/22 06/22/22 06/22/22 03:59 11:59 19:59 Intake Total 1000 2001 Balance 1000 2001 Weight 68.492 kg Intake: IV 1000 2001 Sodium Chloride 0.9% 1,000 ml @ 1000 2000 250 mls/hr IV .Q4H KOKO Rx#: [id number] HumuLIN R 50 UNIT In Sodium 2 Chloride 0.9% 99.5 ml @ Per Protocol IV DUR KOKO Rx#: [id number] General appearance: disheveled Exam: vomiting Head Head exam: Present normal inspection Eye Eye exam: Present EOMI Pupils: Present PERRL ENT ENT exam: Present mucous membranes dry Neck Neck exam: Absent meningismus or thyromegaly Respiratory Respiratory exam: Present normal respiratory exam and CTAB; Absent rales Cardiovascular Cardiovascular exam: Present +S1, +S2 and tachycardia GI/Abdominal GI/Abdominal exam: Present diminished bowel sounds; Absent rebound or tenderness Extremities Exam Extremities exam: Absent pedal edema Neurological Exam Neurological exam: Present alert and CN II-XII intact Additional comments: Keeps eyes closed Psychiatric Psychiatric exam: Present flat affect; Absent suicidal ideation Additional comments: Evasive Skin Skin exam: Present dry A/P Assessment and plan (1) Intractable cyclical vomiting with nausea: Status: Acute Comment: As above. I remain suspecious of cyclic vomiting from THC use > DM gastroparesis Tie-breaking nuclear med gastric emptying time as outpatient Has GI motility specialist in [place] (2) DKA, type 1, not at goal: Status: Acute Comment: The anion gap is present but "hidden" by the huge metabolic and respiratory alkalosis. (3) Metabolic acidosis with respiratory alkalosis: Status: Acute Comment: As above (4) Acid-base disorder, mixed: Status: Acute Comment: Hypochloremic (chloride sensitive) metabolic alkalosis from gastic acid loss and a volume contraction related metabolic alkalosis, respiratory alkalosis. Hidden in this is an Anion Gap metabolic acidosis due to DKA (5) Nausea & vomiting: Status: Acute Comment: I'll never be convinience this is anything but THC related cyclic vomiting Qualifiers: Vomiting type: unspecified Qualified Code(s): R11.2 - Nausea with vomiting, unspecified (6) Renal failure (ARF), acute on chronic: Status: Acute Comment: Established pattern on N/V dehydration and AFR Sepsis Sepsis Identified: No Narrative A/P Narrative: Insulin gtt at 2 units per hour Serial finger sticks Start with 0.45 NS with 20 mEq/KCl at 200/hr When glucose reaches 250 mg/dl, switch to D5 0.45 NaCL with 20 mEq/L KCl at 200/hr BUT CONTINUE INSULIN DRIP TILL SERUM KETONES are negative Q 8 hour BMP, Mg, PO4 and Beta-hydroxy butarate NPO till vomiting stops Hold captopril till GFR back to baseline Labatolol and or Hydralazine for acute BP management If he continues to sabotage the best laid plans and his Mom can't help, consider placement in NH where he can be in a safe enviroment and unable to have access to THC Plan of Treatment: As outline above and discussed with Dr Arrington Time Spent With Patient Time: Total time spent is greater than 50% in coordination of care (as documented) at patient's floor/unit and/or counseling patient:
[2022-06-22] MEDS ORDERED: IPRATROPIUM/ALBUTEROL 3 ML AMPUL.NEB NEB PRN (19:05)
[2022-06-22] MEDS: DEXTROSE 5%-1/2NS W/20MEQ KCL 1,000 ML IV SCH ×2 (19:25→23:17)
[2022-06-22 19:28] LABS: Beta Hydroxybutyrate 3.41 mmol/L (<0.27)
[2022-06-22] MEDS: ONDANSETRON 4 MG/2 ML VIAL IV PRN (19:32)
[2022-06-22] MEDS ORDERED: POTASSIUM CHLORIDE 20 MEQ/10 ML VIAL IV ONE (19:35)
[2022-06-22 19:43] LABS: Estimated Average Glucose(eAG) 192 mg/dL; Hemoglobin A1C 8.3 % Hgb (4.0-6.0)
[2022-06-22] MEDS: PHENobarb/HYOSCY/ATROPINE/SCOP 1 DOSE BOTTLE PO PRN (20:00)
[2022-06-22] MEDS: DOCUSATE SODIUM 100 MG CAPSULE PO SCH (21:38)
[2022-06-22] MEDS: HEPARIN 5,000 UNIT/ML VIAL SQ SCH (21:38)
[2022-06-22] MEDS: 0.9 % SODIUM CHLORIDE 10 ML SYRINGE IV SCH (21:39)
[2022-06-22 23:00] LABS: ABG Methemoglobin 0.2 % (0.4-1.5); Total Hemoglobin 11.3 gm/Dl (13.5-16.5); VBG Base Excess 19 (-2-3); VBG HCO3 43.6 mmol/L (24.0-28.0); VBG Oxygen Saturation 92.5 % (40.0-70.0); VBG PCO2 49.5 mmHg (41.0-51.0); VBG PH 7.56 U (7.32-7.42); VBG PO2 132.3 mmHg (25.0-40.0); VBG Total CO2 45.1 mmol/L (25.0-29.0)
[2022-06-22] MEDS: PROMETHAZINE 25 MG/ML VIAL IV PRN (23:44)
[2022-06-23] MEDS ORDERED: POTASSIUM CHLORIDE 20 MEQ/10 ML VIAL IV ONE
[2022-06-23 00:53] LABS: Blood Urea Nitrogen 58 mg/dL (6-20); Calcium 8.6 mg/dL (8.6-10.4); Carbon Dioxide 40 mmol/L (22-30); Chloride 83 mmol/L (96-108); Glomerular Filtration Rate 19; Glucose 399 mg/dL (70-105)
[2022-06-23] MEDS: DEXTROSE 5%-1/2NS W/20MEQ KCL 1,000 ML IV SCH ×6 (02:03→22:38)
[2022-06-23] MEDS: ONDANSETRON 4 MG/2 ML VIAL IV PRN ×3 (02:39→16:04)
[2022-06-23] MEDS ORDERED: hydrALAZINE 20 MG/ML VIAL ONE (03:03)
[2022-06-23] MEDS: hydrALAZINE 20 MG/ML VIAL IV PRN ×4 (03:05→23:05)
[2022-06-23] MEDS: PHENobarb/HYOSCY/ATROPINE/SCOP 1 DOSE BOTTLE PO PRN ×3 (03:06→21:31)
[2022-06-23] MEDS: PROMETHAZINE 25 MG/ML VIAL IV PRN ×2 (04:04→12:19)
[2022-06-23] MEDS: 0.9 % SODIUM CHLORIDE 10 ML SYRINGE IV SCH ×3 (05:29→21:20)
[2022-06-23 07:32] LABS: Basophils # (Auto) 0.06 K/mcL (0.00-0.30); Basophils % (Auto) 0.4 % (0.0-2.0); Eosinophils # (Auto) 0.01 K/mcL (0.00-0.70); Eosinophils % (Auto) 0.1 % (0.0-7.0); Hematocrit 31.1 % (40.1-51.0); Hemoglobin 9.9 g/dL (13.7-17.5); Lymphocytes # (Auto) 1.65 K/mcL (1.50-4.80); Lymphocytes % (Auto) 11.3 % (15.5-49.0); Mean Cell Volume 82.7 fL (80.0-100.0); Mean Corpuscular HGB Conc 31.8 g/dL (31.0-36.0); Mean Platelet Volume 10.1 fL (8.8-12.5); Monocytes # (Auto) 1.54 K/mcL (0.10-0.90); Monocytes % (Auto) 10.5 % (1.0-12.0); Neutrophils % (Auto) 77.2 % (38.0-78.0); Platelet Count 370 K/mcL (140-440); RBC 3.76 M/mcL (4.63-6.08); WBC 14.6 K/mcL (4.5-11.0)
[2022-06-23 08:09] LABS: Phosphorous 4.1 mg/dL (2.5-4.5)
[2022-06-23 08:14] LABS: ALT/SGPT 11 U/L (<40); AST/SGOT 13 U/L (<40); Albumin 3.4 gm/dL (3.2-5.2); Albumin/Globulin Ratio 1.3 (1.0-2.3); Alkaline Phosphatase 134 U/L (39-117); Bilirubin,Total 0.3 mg/dL (0.1-1.0); Blood Urea Nitrogen 47 mg/dL (6-20); Calcium 8.6 mg/dL (8.6-10.4); Carbon Dioxide 39 mmol/L (22-30); Chloride 88 mmol/L (96-108); Globulin 2.7 gm/dL (2.2-3.7); Glomerular Filtration Rate 20; Glucose 257 mg/dL (70-105)
[2022-06-23 08:37] LABS: Appearance,Urine CLEAR (Clear); Bilirubin,Urine NEGATIVE (Negative); Color,Urine LT. YELLOW; Culture Indicated,Urine No; Glucose,Urine (UA) >=1000 mg/dL (Negative); Ketones,Urine 15 mg/dL (Negative); Leukocyte Esterase,Urine NEGATIVE /uL (Negative); Nitrate,Urine NEGATIVE (Negative); Protein,Urine 30 mg/dL (Negative); Urine Blood TRACE-INTACT ery/mcL (Negative); Urine RBC 2 /hpf (0-3); Urine Squamous Epithelial Cell 2 /hpf (0-4); Urine WBC 2 /hpf (0-4); Urobilinogen,Urine Normal
[2022-06-23] MEDS ORDERED: SENNOSIDES 1 TABLET PO SCH (09:00)
--- NOTE | 2022-06-23 09:03 | Nephrology Progress Note ---
SUBJECTIVE Subjective Patient information: Note initiated : 06/23/22 at 9:02 am Service Date, if different from initiated Date: [] Patient: Mauri Levine 36 y/o M admitted on 06/22/22 for n/v. Chief Complaint: [N/V] Principal diagnosis: DKA, cyclic vomiting syndrome with THC abuse, dehydration, mixed metabolic, Interval history: Spent noght in ICU for IVF and insulin drip. Vital Signs Temp Pulse Resp BP Pulse Ox O2 Del Method O2 Flow Rate 06/23/22 08:01 36.3 C 95 H 19 128/72 99 Room Air 06/23/22 07:00 102 H 21 153/80 98 Room Air 06/23/22 06:00 99 H 20 146/74 97 06/23/22 05:11 102 H 19 159/89 97 06/23/22 04:00 37.3 C H 103 H 21 154/86 94 06/23/22 03:01 103 H 14 182/97 97 06/23/22 02:00 Room Air 06/22/22 18:54 99 Nasal Cannula 2 06/23/22 02:10 102 H 18 162/93 99 Nasal Cannula 2 06/23/22 02:45 96 Nasal Cannula 1 06/23/22 01:00 104 H 15 163/103 97 Nasal Cannula 2 06/23/22 00:00 37.3 C H 108 H 13 162/91 97 Nasal Cannula 2 06/22/22 23:01 101 H 21 156/82 99 Nasal Cannula 2 06/22/22 22:49 106 H Nasal Cannula 2 06/22/22 22:01 100 H 19 166/74 98 Nasal Cannula 2 06/22/22 21:01 100 H 24 H 142/63 100 Nasal Cannula 2 06/22/22 20:31 106 H 26 H 189/84 100 Nasal Cannula 2 06/22/22 20:01 36.7 C 108 H 25 H 164/95 100 Room Air 2 06/22/22 19:46 100 H 22 186/72 100 Room Air 2 06/22/22 19:31 106 H 22 104/89 99 Room Air 2 06/22/22 19:16 111 H 19 174/99 100 Room Air 2 06/22/22 19:05 36.7 C 06/22/22 19:08 112 H 17 191/108 100 Room Air 2 06/22/22 18:46 101 H 20 153/70 100 Nasal Cannula 2 06/22/22 18:30 108 H 21 178/109 100 Nasal Cannula 2 06/22/22 18:15 104 H 20 170/86 100 06/22/22 18:00 109 H 17 171/102 100 06/22/22 17:45 109 H 16 163/98 100 06/22/22 17:30 105 H 20 155/72 99 06/22/22 17:16 103 H 13 151/65 100 06/22/22 17:01 108 H 21 174/84 100 06/22/22 16:46 101 H 20 151/71 100 06/22/22 16:30 106 H 16 155/78 99 06/22/22 16:15 108 H 15 146/93 100 06/22/22 16:01 105 H 19 112/74 100 06/22/22 15:46 99 H 17 155/83 100 06/22/22 15:42 101 H 20 142/68 95 06/22/22 15:31 102 H 19 147/68 96 06/22/22 15:16 113 H 21 110/82 99 06/22/22 15:01 107 H 17 183/98 99 06/22/22 14:59 79 19 126/64 99 06/22/22 14:52 100 H 18 100 06/22/22 14:01 98 H 23 H 142/72 100 06/22/22 13:46 102 H 18 166/71 100 06/22/22 13:30 99 H 18 145/70 96 06/22/22 13:15 100 H 20 141/78 98 06/22/22 13:00 95 H 24 H 134/89 99 06/22/22 12:46 92 H 19 128/67 100 06/22/22 12:31 89 20 129/77 100 06/22/22 12:16 96 H 20 152/87 100 06/22/22 12:01 105 H 18 110/65 100 06/22/22 11:45 122 H 15 121/99 100 06/22/22 11:30 99 H 20 124/75 100 06/22/22 11:16 94 H 20 126/72 100 06/22/22 11:03 68 L Nasal Cannula 2 06/22/22 11:00 99 H 19 159/79 100 06/22/22 10:46 97 H 16 150/73 100 06/22/22 10:30 104 H 23 H 111/79 99 06/22/22 10:16 20 121/100 99 06/22/22 10:03 106 H 20 143/88 100 06/22/22 09:53 37.0 C 114 H 19 143/88 97 Room Air Intake and Output 06/22/22 06/23/22 06/23/22 19:59 03:59 11:59 Intake Total 2001 2180 988 Output Total 100 1400 0 Balance 1902 780 988 Intake: IV 2001 1500 988 Sodium Chloride 0.9% 1,000 ml @ 2000 1000 250 mls/hr IV .Q4H [facility] Rx#: [id number] Dextrose 5%-1/2Ns W/20Meq KCl 1 988 ,000 ml @ 250 mls/hr IV .Q4H [facility] Rx#:[id number] HumuLIN R 50 UNIT In Sodium 2 Chloride 0.9% 99.5 ml @ Per Protocol IV DUR K[facility]O Rx#: [id number] Potassium Chloride 20 Meq In 500 Sodium Chloride 0.45% 1,000 ml @ 250 mls/hr IV CONT PRN Rx#: [id number] Oral 680 0 Output: Void Amount 1300 0 Emesis 100 100 Other: Urine Appearance Clear Urine Color Bright Yellow Urine Odor Sweet Weight 67.903 kg Serum Creatinine Beta Hydroxy Butarate Anion Gap is down to 11 Still ketotic but improved Pertinent ROS: Nothing new Additional PMFSH (Level 3 Only): N/A Constitutional Vitals: Vital Signs Temp Pulse Resp BP Pulse Ox O2 Del Method O2 Flow Rate 36.3 C 95 H 19 128/72 99 1 06/23/22 08:01 06/23/22 08:01 06/23/22 08:01 06/23/22 08:01 06/23/22 08:01 06/23/22 08:01 06/23/22 02:45 Period Temp Pulse Resp BP Sys/Menard Pulse Ox O2 Del Method O2 Flow Rate Last 24 Hr 36.3 C-37.3 C 79-122 13-26 104-191/63-109 68-100 Nasal Cannula-Room Air 1-2 Intake and Output 06/22/22 06/23/22 06/23/22 19:59 03:59 11:59 Intake Total 2001 2180 988 Output Total 100 1400 0 Balance 1902 780 988 Weight 67.903 kg Intake & Output: Intake & Output 06/22/22 06/23/22 06/23/22 19:59 03:59 11:59 Intake Total 2001 2180 988 Output Total 100 1400 0 Balance 1902 780 988 Weight 67.903 kg Intake: IV 2001 1500 988 Sodium Chloride 0.9% 1,000 ml @ 2000 1000 250 mls/hr IV .Q4H [facility] Rx#: [id number] Dextrose 5%-1/2Ns W/20Meq KCl 1 988 ,000 ml @ 250 mls/hr IV .Q4H [facility] Rx#:[id number] HumuLIN R 50 UNIT In Sodium 2 Chloride 0.9% 99.5 ml @ Per Protocol IV DUR [facility] Rx#: [id number] Potassium Chloride 20 Meq In 500 Sodium Chloride 0.45% 1,000 ml @ 250 mls/hr IV CONT PRN Rx#: [id number] Oral 680 0 Output: Void Amount 1300 0 Emesis 100 100 Other: Urine Appearance Clear Urine Color Bright Yellow Urine Odor Sweet General appearance: average body habitus and no acute distress Exam: Refuses to look at me Head Head exam: Present normal inspection Eye Additional comments: Unable to examine as he keeps his eyes closed ENT ENT exam: Present mucous membranes dry Neck Neck exam: Present full ROM; Absent meningismus Respiratory Respiratory exam: Present normal respiratory exam and CTAB Cardiovascular Cardiovascular exam: Present normal rate and rhythm, +S1 and +S2 GI/Abdominal GI/Abdominal exam: Present hypoactive bowel sounds; Absent tenderness Additional comments: Still nauseous and vomiting Extremities Exam Extremities exam: Absent pedal edema Neurological Exam Neurological exam: Present CN II-XII intact and oriented X3 Additional comments: Sleepy and arousable Psychiatric Psychiatric exam: Present flat affect Skin Skin exam: Present dry A/P Assessment and plan (1) Intractable cyclical vomiting with nausea: Status: Acute Comment: As above. I remain suspecious of cyclic vomiting from THC use > DM gastropa resis Tie-breaking nuclear med gastric emptying time as outpatient Has GI motility specialist in [place] (2) Renal failure (ARF), acute on chronic: Status: Acute Comment: Established pattern on N/V dehydration and AFR (3) Nausea & vomiting: Status: Acute Comment: I'll never be convinience this is anything but THC related cyclic vomiting Qualifiers: Vomiting type: unspecified Qualified Code(s): R11.2 - Nausea with vomiting, unspecified (4) Acid-base disorder, mixed: Status: Acute Comment: Hypochloremic (chloride sensitive) metabolic alkalosis from gastic acid loss and a volume contraction related metabolic alkalosis, respiratory alkalosis. Hidden in this is an Anion Gap metabolic acidosis due to DKA (5) DKA, type 1, not at goal: Status: Acute Comment: The anion gap is present but "hidden" by the huge metabolic and respiratory alkalosis. (6) Metabolic acidosis with respiratory alkalosis: Status: Acute Comment: As above (7) Acute worsening of stage 4 chronic kidney disease: Status: Acute Narrative A/P Narrative: 1. Told patient unless he shapes up and quits using THC products, this cycle will continue and he will be on dialysis at some point due to repeated renal insults in the setting of dehydration +/- DKA with each episode causing a loss of nephron mass => worsening GFR 2. Needs to care for himself, he's 36 and can only seem to give himself redular dope, can't take care of his DM even though he has state of the are Insulin delivery and CGM technology. 3. I advise psychiatric evaluation for less drugs and CBT to help with his "daemons". Plan of Treatment: As outline above and discussed with Dr Freeman Time Spent With Patient Time: Total time spent is greater than 50% in coordination of care (as documented) at patient's floor/unit and/or counseling patient:
--- NOTE | 2022-06-23 09:11 | Internal Med Progress Note ---
SUBJECTIVE Subjective Patient information: Note initiated : 06/23/22 at 9:03 am Service Date, if different from initiated Date: [] Patient: Mauri Levine 36 y/o M admitted on 06/22/22 for n/v. Chief Complaint: [] Principal diagnosis: DKA, cyclic vomiting syndrome with THC abuse, dehydration, mixed metabolic, Interval history: Mr. Levine is a 36 year old M history of type 1 diabetes mellitus, chronic kidney disease stage IV, depression, presented with 3-day history of nausea vomiting and epigastric abdominal pain whenever he vomits. He was recently admitted in our facility for DKA 3 weeks ago. Over the past 3 days, he is complain of nausea, vomiting, and epigastric abdominal pain whenever he vomits. He also has decreased oral intake due to his symptoms. Labs significant for leukocytosis with WBC 12.8. H&H 11.6/35.6. VBG showing pH 7.59. bicarb 50.4, anion gap 14, blood glucose >700 with repeat of 594. Serum Cr levl 4.5, with repeat of 4.1. Urine analysis results pending. Chest x-ray negative for any acute pathologies. Admission request was called for acute chest and acute on chronic kidney injury. 06/23: [place] discussions with Dr. Mills, he thinks the patient is actually having more like a DKA than HHS, and indeed he is serum beta hydroxybutyrate was elevated. It was likely due to his marijuana THC use with induced gastroparesis. His nausea vomiting interns induced contraction alkalosis, c omplicating the clinical presentation. Beta hydroxybutyrate this morning 0.22, still elevated but downtrended relative to last night. Patient is currently sleeping and very drowsy. Keep patient in the ICU, continue Insulin drip @ 2unit/hr. Keep NPO status with IV fluid infusion. BMP/beta hydroxybutyrate/VBG q6hr, Accu Check q1hr. Pending diabetes education. Constitutional Vitals: Vital Signs Temp Pulse Resp BP Pulse Ox O2 Del Method O2 Flow Rate 36.3 C 95 H 19 128/72 99 1 06/23/22 08:01 06/23/22 08:01 06/23/22 08:01 06/23/22 08:01 06/23/22 08:01 06/23/22 08:01 06/23/22 02:45 Period Temp Pulse Resp BP Sys/Menard Pulse Ox O2 Del Method O2 Flow Rate Last 24 Hr 36.3 C-37.3 C 79-122 13-26 104-191/63-109 68-100 Nasal Cannula-Room Air 1-2 Intake and Output 06/22/22 06/23/22 06/23/22 19:59 03:59 11:59 Intake Total 2001 2180 988 Output Total 100 1400 0 Balance 1902 780 988 Weight 67.903 kg Intake & Output: Intake & Output 06/22/22 06/23/22 06/23/22 19:59 03:59 11:59 Intake Total 2001 2180 988 Output Total 100 1400 0 Balance 1902 780 988 Weight 67.903 kg Intake: IV 2001 1500 988 Sodium Chloride 0.9% 1,000 ml @ 2000 1000 250 mls/hr IV .Q4H [facility] Rx#: [id number] Dextrose 5%-1/2Ns W/20Meq KCl 1 988 ,000 ml @ 250 mls/hr IV .Q4H [facility] Rx#:[id number] HumuLIN R 50 UNIT In Sodium 2 Chloride 0.9% 99.5 ml @ Per Protocol IV DUR [facility] Rx#: [id number] Potassium Chloride 20 Meq In 500 Sodium Chloride 0.45% 1,000 ml @ 250 mls/hr IV CONT PRN Rx#: [id number] Oral 680 0 Output: Void Amount 1300 0 Emesis 100 100 Other: Urine Appearance Clear Urine Color Bright Yellow Urine Odor Sweet General appearance: average body habitus Exam: Lethargic Head Head exam: Present atraumatic and normal inspection Eye Eye exam: Present normal appearance ENT ENT exam: Present mucous membranes moist, normal exam and normal external ear e xam Neck Neck exam: Present normal inspection Respiratory Respiratory exam: Present normal respiratory exam Cardiovascular Cardiovascular exam: Present normal rate and rhythm GI/Abdominal GI/Abdominal exam: Present normal bowel sounds Back Exam Back exam: Present normal inspection Neurological Exam Neurological exam: Absent alert or oriented X3 Additional comments: Lethargic Skin Skin exam: Present intact and warm OBJ DATA Labs CBC & Chem 7: 06/23/22 05:49 06/23/22 05:49 Labs: Abnormal Lab Results 06/23/22 06/23/22 06/22/22 05:49 05:49 23:49 WBC 14.6 H RBC 3.76 L Hgb 9.9 L Hct 31.1 L POC Hct RDW 16.0 H Plt Count Neut % (Auto) Lymph % (Auto) 11.3 L Lymph # (Auto) Ransom # (Auto) 1.54 H Immature Gran # 0.08 H Absolute Neutrophils 11.29 H ABG Methemoglobin VBG pH POC VBG pH POC VBG pCO2 at Temp VBG pO2 POC VBG pO2 VBG HCO3 POC VBG HCO3 VBG Total CO2 POC VBG Total CO2 VBG O2 Saturation POC Venous O2 Sat VBG Base Excess POC VBG Base Excess VBG Lactic Acid Carboxyhemoglobin Total Hemoglobin POC Sodium POC Potassium POC Chloride Chloride 88 L 83 L Carbon Dioxide 39 H 40 H POC Total CO2 POC BUN BUN 47 H 58 H Creatinine 3.7 H 3.8 H POC Creatinine Glucose 257 H 399 H POC Glucose Hemoglobin A1c POC WB Ioniz Calcium Magnesium 3.5 H Alkaline Phosphatase 134 H Beta-Hydroxybutyrate Urine Protein Urine Glucose (UA) Urine Ketones Urine Occult Blood 06/22/22 06/22/22 06/22/22 22:36 15:52 14:06 WBC RBC Hgb Hct POC Hct 33.0 L 35.0 L RDW Plt Count Neut % (Auto) Lymph % (Auto) Lymph # (Auto) Ransom # (Auto) Immature Gran # Absolute Neutrophils ABG Methemoglobin 0.2 L VBG pH 7.56 H POC VBG pH POC VBG pCO2 at Temp VBG pO2 132.3 H POC VBG pO2 VBG HCO3 43.6 H* POC VBG HCO3 VBG Total CO2 45.1 H* POC VBG Total CO2 VBG O2 Saturation 92.5 H POC Venous O2 Sat VBG Base Excess 19 H POC VBG Base Excess VBG Lactic Acid Carboxyhemoglobin 5.6 H Total Hemoglobin 11.3 L POC Sodium POC Potassium 3.0 L POC Chloride 80 L 80 L Chloride Carbon Dioxide POC Total CO2 41.0 H 43.0 H* POC BUN 52 H 50 H BUN Creatinine POC Creatinine 4.1 H 4.1 H Glucose POC Glucose 594 H* 491 H* Hemoglobin A1c POC WB Ioniz Calcium 0.81 L 0.81 L Magnesium Alkaline Phosphatase Beta-Hydroxybutyrate Urine Protein Urine Glucose (UA) Urine Ketones Urine Occult Blood 06/22/22 06/22/22 06/22/22 14:05 10:45 10:41 WBC RBC Hgb Hct POC Hct 40.0 L RDW Plt Count Neut % (Auto) Lymph % (Auto) Lymph # (Auto) Ransom # (Auto) Immature Gran # Absolute Neutrophils ABG Methemoglobin VBG pH POC VBG pH 7.59 H 7.68 H* POC VBG pCO2 at Temp 52.7 H VBG pO2 POC VBG pO2 45 H VBG HCO3 POC VBG HCO3 50.4 H* 58.4 H* VBG Total CO2 POC VBG Total CO2 > 50.0 H* > 50.0 H* VBG O2 Saturation POC Venous O2 Sat 86.0 H VBG Base Excess POC VBG Base Excess 29.0 H* > 30.0 H* VBG Lactic Acid 3.2 H Carboxyhemoglobin Total Hemoglobin POC Sodium 126 L POC Potassium POC Chloride 70 L Chloride Carbon Dioxide POC Total CO2 45.0 H* POC BUN 56 H BUN Creatinine POC Creatinine 4.5 H Glucose POC Glucose > 700 H* Hemoglobin A1c POC WB Ioniz Calcium 0.79 L Magnesium Alkaline Phosphatase Beta-Hydroxybutyrate Urine Protein Urine Glucose (UA) Urine Ketones Urine Occult Blood 06/22/22 06/22/22 06/22/22 10:40 10:28 10:28 WBC 12.8 H RBC 4.42 L Hgb 11.6 L Hct 35.6 L POC Hct RDW 15.9 H Plt Count 503 H Neut % (Auto) 81.6 H Lymph % (Auto) 8.8 L Lymph # (Auto) 1.12 L Ransom # (Auto) 1.12 H Immature Gran # 0.07 H Absolute Neutrophils 10.40 H ABG Methemoglobin VBG pH POC VBG pH POC VBG pCO2 at Temp VBG pO2 POC VBG pO2 VBG HCO3 POC VBG HCO3 VBG Total CO2 POC VBG Total CO2 VBG O2 Saturation POC Venous O2 Sat VBG Base Excess POC VBG Base Excess VBG Lactic Acid Carboxyhemoglobin Total Hemoglobin POC Sodium POC Potassium POC Chloride Chloride Carbon Dioxide POC Total CO2 POC BUN BUN Creatinine POC Creatinine Glucose POC Glucose Hemoglobin A1c 8.3 H POC WB Ioniz Calcium Magnesium Alkaline Phosphatase 161 H Beta-Hydroxybutyrate 3.41 H Urine Protein Urine Glucose (UA) Urine Ketones Urine Occult Blood 06/22/22 02:40 WBC RBC Hgb Hct POC Hct RDW Plt Count Neut % (Auto) Lymph % (Auto) Lymph # (Auto) Ransom # (Auto) Immature Gran # Absolute Neutrophils ABG Methemoglobin VBG pH POC VBG pH POC VBG pCO2 at Temp VBG pO2 POC VBG pO2 VBG HCO3 POC VBG HCO3 VBG Total CO2 POC VBG Total CO2 VBG O2 Saturation POC Venous O2 Sat VBG Base Excess POC VBG Base Excess VBG Lactic Acid Carboxyhemoglobin Total Hemoglobin POC Sodium POC Potassium POC Chloride Chloride Carbon Dioxide POC Total CO2 POC BUN BUN Creatinine POC Creatinine Glucose POC Glucose Hemoglobin A1c POC WB Ioniz Calcium Magnesium Alkaline Phosphatase Beta-Hydroxybutyrate Urine Protein 30 A Urine Glucose (UA) >=1000 A Urine Ketones 15 A Urine Occult Blood Trace-intact A Meds: Medications Albuterol/Ipratropium (Ipratropium/Albuterol 3 Ml Ampul.Neb) 3 ml NEB Q4HRT PRN PRN Reason: Wheezing Belladonna/Phenobarbital (Phenobarb/Hyoscy/Atropine/Scop 1 Dose Bottle) 1 dose PO Q6HP PRN PRN Reason: Dyspepsia Last Admin: 06/23/22 03:06 Dose: 1 dose Diagnostic Test (Pha) (Accu-Chek 1 Each Strip) 1 each FS Q1 [facility] Last Admin: 06/23/22 08:00 Dose: 1 each Docusate Sodium (Docusate Sodium 100 Mg Capsule) 100 mg PO BID KOKO Last Admin: 06/22/22 21:38 Dose: Not Given Heparin Sodium (Porcine) (Heparin 5,000 Unit/Ml Vial) 5,000 unit SQ Q12 K[facility] Last Admin: 06/22/22 21:38 Dose: 5,000 unit Hydralazine HCl (Hydralazine 20 Mg/Ml Vial) 10 mg IV Q4-6HP PRN PRN Reason: Hypertension Last Admin: 06/23/22 03:05 Dose: 10 mg Potassium Chloride 20 meq/ (Sodium Chloride) 1,010 mls @ 250 mls/hr IV CONT PRN PRN Reason: BLOOD GLUCOSE Last Infusion: 06/23/22 02:04 Dose: Infused Potassium Chloride/Dextrose/Sod Cl (Dextrose 5%-1/2ns W/20meq Kcl) 1,000 mls @ 250 mls/hr IV .Q4H [facility] Last Admin: 06/23/22 06:00 Dose: 250 mls/hr Ondansetron HCl (Ondansetron 4 Mg/2 Ml Vial) 4 mg IV Q4-6HP PRN; Protocol PRN Reason: Nausea And Vomiting Last Admin: 06/23/22 02:39 Dose: 4 mg Promethazine HCl (Promethazine 25 Mg/Ml Vial) 25 mg IV Q4-6HP PRN; Protocol PRN Reason: Nausea And Vomiting Last Admin: 06/23/22 04:04 Dose: 25 mg Senna (Sennosides 1 Tablet) 8.8 tab PO DAILY K[facility]O Sodium Chloride (0.9 % Sodium Chloride 10 Ml Syringe) 10 ml IV Q8 [facility] Last Admin: 06/23/22 05:29 Dose: Not Given ABG Interpretation ABG results: 06/22/22 06/22/22 20:08 22:36 ABG Methemoglobin TNP 0.2 L VBG pH TNP 7.56 H VBG pCO2 TNP 49.5 VBG pO2 TNP 132.3 H VBG HCO3 TNP 43.6 H* VBG Total CO2 TNP 45.1 H* VBG O2 Saturation TNP 92.5 H VBG Base Excess TNP 19 H A/P Assessment and plan (1) Renal failure (ARF), acute on chronic: Status: Acute Comment: Established pattern on N/V dehydration and AFR (2) Acid-base disorder, mixed: Status: Acute Comment: Hypochloremic (chloride sensitive) metabolic alkalosis from gastic acid loss and a volume contraction related metabolic alkalosis, respiratory alkalosis. Hid den in this is an Anion Gap metabolic acidosis due to DKA (3) Type 1 diabetes mellitus with hyperosmolar hyperglycemic state (HHS): Status: Acute (4) GERD (gastroesophageal reflux disease): Status: Chronic Qualifiers: Esophagitis presence: esophagitis presence not specified Qualified Code(s): K21.9 - Gastro-esophageal reflux disease without esophagitis (5) Depression: Status: Acute (6) Anemia associated with stage 4 chronic renal failure: Status: Acute (7) Gastroparesis: Status: Acute Narrative A/P Narrative: Assessment and Plans: 1. Hyperosmolar hyperglycemic state associated with type 1 diabetes mellitus, clinical picture overlapping with DKA, complicated by contraction alkalosis due to gastroparesis: Inpatient ICU with telemetry HgA1c 8.3 d/c insulin pump and transition to insulin drip fixed rate @2unit/hr NPO IV fluid with the followin/2NS w/ KCl 20mEq @250cc/hr when anion gap is elevated (>14) and blood glucose >=250 D5 1/2NS w/ KCl 20mEq @250cc/hr when anion gap is elevated (>14) and blood glucose <250 Accu Check q1hr BMP q6hr Beta hydroxybutyrate q6hr Diabetes education referral Zofran Phenergan 2. Acute on kidney kidney disease: Avoid nephrotoxic agents Consult coding compliance manager Dr. Mills, recs. appreciated IV fluid, see above Serial chemistry to trend kidney functions, see above 3. Anemia associated with chronic kidney disease IV: cbc w/ auto diff in the morning to trend H/H 4. GERD: Pepcid 5. Depression: Fluoxetine Mirtazapine Venlafaxine GI ppx: Pepcid DVT ppx: Heparin Code status: Full Prognosis: extremely guarded Disposition: inpatient ICU Critical Care Time: 60min Plan of Treatment: As outline above and discussed with Dr Freeman Time Spent With Patient Time: Total time spent is greater than 50% in coordination of care (as documented) at patient's floor/unit and/or counseling patient: Total time spent with greater than 50% in coordination of care (as documented) at patient's floor/unit and/or counseling patient:: 50 - 70 minutes Critical Care Time: Yes Total Critical Care Time: 60
[2022-06-23] MEDS: DOCUSATE SODIUM 100 MG CAPSULE PO SCH ×2 (09:33→21:08)
[2022-06-23] MEDS: HEPARIN 5,000 UNIT/ML VIAL SQ SCH ×2 (09:42→21:18)
[2022-06-23] MEDS ORDERED: HALOPERIDOL LACTATE 5 MG/ML VIAL IV PRN (12:32)
[2022-06-23] MEDS ORDERED: CAPSAICIN 0.025% CREAM.TOP 60GM TOPICAL PRN (12:32)
[2022-06-23 13:31] LABS: Beta Hydroxybutyrate 0.33 mmol/L (<0.27)
[2022-06-23 13:32] LABS: Blood Urea Nitrogen 43 mg/dL (6-20); Calcium 9.2 mg/dL (8.6-10.4); Carbon Dioxide 33 mmol/L (22-30); Chloride 93 mmol/L (96-108); Glomerular Filtration Rate 24; Glucose 217 mg/dL (70-105)
[2022-06-23] MEDS ORDERED: INSULIN REGULAR, HUMAN 50 UNIT in 0.9 % SODIUM CHLORIDE 99.5 ML IV SCH (14:15)
[2022-06-23] MEDS: CAPTOPRIL 12.5 MG TABLET PO SCH ×2 (15:15→21:19)
[2022-06-23 19:00] LABS: ABG Methemoglobin 0.3 % (0.4-1.5); Total Hemoglobin 11.5 gm/Dl (13.5-16.5); VBG Base Excess 8 (-2-3); VBG HCO3 31.9 mmol/L (24.0-28.0); VBG Oxygen Saturation 89.5 % (40.0-70.0); VBG PCO2 41.8 mmHg (41.0-51.0); VBG PO2 121.2 mmHg (25.0-40.0); VBG Total CO2 33.1 mmol/L (25.0-29.0)
[2022-06-23 19:30] LABS: Blood Urea Nitrogen 35 mg/dL (6-20); Calcium 8.6 mg/dL (8.6-10.4); Carbon Dioxide 31 mmol/L (22-30); Chloride 97 mmol/L (96-108); Glomerular Filtration Rate 23; Glucose 199 mg/dL (70-105)
[2022-06-23] MEDS: FAMOTIDINE 20 MG TABLET PO SCH (21:18)
[2022-06-23] MEDS: SUCRALFATE 1 GM TABLET PO SCH (21:18)
[2022-06-23] MEDS: MIRTAZAPINE 15 MG TABLET PO SCH (21:19)
[2022-06-24 01:03] LABS: Blood Urea Nitrogen 31 mg/dL (6-20); Calcium 8.8 mg/dL (8.6-10.4); Carbon Dioxide 28 mmol/L (22-30); Chloride 98 mmol/L (96-108); Glomerular Filtration Rate 24; Glucose 257 mg/dL (70-105)
[2022-06-24] MEDS: ONDANSETRON 4 MG/2 ML VIAL IV PRN ×3 (02:23→17:07)
[2022-06-24] MEDS: PROMETHAZINE 25 MG/ML VIAL IV PRN ×4 (02:24→21:01)
[2022-06-24] MEDS: DEXTROSE 5%-1/2NS W/20MEQ KCL 1,000 ML IV SCH ×2 (02:47→06:48)
[2022-06-24] MEDS: hydrALAZINE 20 MG/ML VIAL IV PRN ×4 (05:09→22:28)
[2022-06-24] MEDS: 0.9 % SODIUM CHLORIDE 10 ML SYRINGE IV SCH ×3 (05:17→20:56)
[2022-06-24] MEDS: LORazepam 2 MG/ML VIAL IV PRN (06:21)
[2022-06-24 07:26] LABS: Basophils # (Auto) 0.06 K/mcL (0.00-0.30); Basophils % (Auto) 0.7 % (0.0-2.0); Eosinophils # (Auto) 0.02 K/mcL (0.00-0.70); Eosinophils % (Auto) 0.2 % (0.0-7.0); Hematocrit 33.9 % (40.1-51.0); Hemoglobin 10.5 g/dL (13.7-17.5); Lymphocytes # (Auto) 1.62 K/mcL (1.50-4.80); Lymphocytes % (Auto) 19.5 % (15.5-49.0); Mean Platelet Volume 10.6 fL (8.8-12.5); Monocytes # (Auto) 0.94 K/mcL (0.10-0.90); Monocytes % (Auto) 11.3 % (1.0-12.0); Neutrophils % (Auto) 67.8 % (38.0-78.0); Platelet Count 334 K/mcL (140-440); RBC 3.94 M/mcL (4.63-6.08); Red Cell Distribution Width 15.9 % (11.5-14.5); WBC 8.3 K/mcL (4.5-11.0)
[2022-06-24 07:45] LABS: ALT/SGPT 11 U/L (<40); AST/SGOT 14 U/L (<40); Albumin 3.3 gm/dL (3.2-5.2); Albumin/Globulin Ratio 1.1 (1.0-2.3); Alkaline Phosphatase 119 U/L (39-117); Bilirubin,Total 0.3 mg/dL (0.1-1.0); Blood Urea Nitrogen 24 mg/dL (6-20); Carbon Dioxide 26 mmol/L (22-30); Chloride 101 mmol/L (96-108); Globulin 3.1 gm/dL (2.2-3.7); Glomerular Filtration Rate 26; Glucose 181 mg/dL (70-105); Phosphorous 2.1 mg/dL (2.5-4.5)
[2022-06-24] MEDS ORDERED: DEXTROSE 31 GM ORAL.SUSP PO PRN (08:20)
[2022-06-24] MEDS ORDERED: DEXTROSE 50% 50 ML VIAL IV PRN (08:20)
--- NOTE | 2022-06-24 08:24 | Internal Med Progress Note ---
SUBJECTIVE Subjective Patient information: Note initiated : 06/24/22 at 8:22 am Service Date, if different from initiated Date: [] Patient: Mauri Levine 36 y/o M admitted on 06/22/22 for n/v. Chief Complaint: [] Principal diagnosis: DKA, cyclic vomiting syndrome with THC abuse, dehydration, mixed metabolic, Interval history: Mr. Levine is a 36 year old M history of type 1 diabetes mellitus, chronic kidney disease stage IV, depression, presented with 3-day history of nausea vomiting and epigastric abdominal pain whenever he vomits. He was recently admitted in our facility for DKA 3 weeks ago. Over the past 3 days, he is complain of nausea, vomiting, and epigastric abdominal pain whenever he vomits. He also has decreased oral intake due to his symptoms. Labs significant for leukocytosis with WBC 12.8. H&H 11.6/35.6. VBG showing pH 7.59. bicarb 50.4, anion gap 14, blood glucose >700 with repeat of 594. Serum Cr levl 4.5, with repeat of 4.1. Urine analysis results pending. Chest x-ray negative for any acute pathologies. Admission request was called for acute chest and acute on chronic kidney injury. 06/23: [place] discussions with Dr. Mills, he thinks the patient is actually having more like a DKA than HHS, and indeed he is serum beta hydroxybutyrate was elevated. It was likely due to his marijuana THC use with induced gastroparesis. His nausea vomiting interns induced contraction alkalosis, c omplicating the clinical presentation. Beta hydroxybutyrate this morning 0.22, still elevated but downtrended relative to last night. Patient is currently sleeping and very drowsy. Keep patient in the ICU, continue Insulin drip @ 2unit/hr. Keep NPO status with IV fluid infusion. BMP/beta hydroxybutyrate/VBG q6hr, Accu Check q1hr. Pending diabetes education. 06/24: Beta hydroxybutyrate 0.05. Serum anion gap 12, bicarb 26, creatinine 3.0. Glucose level 181 fasting. Patient denies any more abdominal pain, nausea, or vomiting. He generally feels better today relative to yesterday. We will start transitioning from insulin drip to insulin pump today. We will have insulin drip and insulin pump over level 2 hours, after which to, will stay in occupations, we will stop the insulin pump, and will start if he does not patient with CC diet. We will also cover patients with sliding scale c orrectional scale insulin AC at bedtime, Accu-Chek AC at bedtime. Constitutional Vitals: Vital Signs Temp Pulse Resp BP Pulse Ox O2 Del Method O2 Flow Rate 36.8 C 102 H 21 169/89 99 1 06/24/22 04:00 06/24/22 07:00 06/24/22 07:00 06/24/22 07:00 06/24/22 07:00 06/24/22 06:00 06/23/22 08:00 Period Temp Pulse Resp BP Sys/Menard Pulse Ox O2 Del Method O2 Flow Rate Last 24 Hr 36.8 C-37.4 C 83-108 12-41 112-225/58-110 92-100 Room Air-Room Air Intake and Output 06/23/22 06/24/22 06/24/22 19:59 03:59 11:59 Intake Total 1098 2950 1200 Output Total 1525 1675 1475 Balance -427 1275 -275 Weight 71.713 kg Intake & Output: Intake & Output 06/23/22 06/24/22 06/24/22 19:59 03:59 11:59 Intake Total 1098 2950 1200 Output Total 1525 1675 1475 Balance -427 1275 -275 Weight 71.713 kg Intake: IV 1098 2000 1000 Dextrose 5%-1/2Ns W/20Meq KCl 1 1000 2000 1000 ,000 ml @ 250 mls/hr IV .Q4H [facility] Rx#:[id number] HumuLIN R 50 UNIT In Sodium 98 Chloride 0.9% 99.5 ml @ Per Protocol IV DUR [facility] Rx#: [id number] Oral 0 950 200 Output: Void Amount 1325 1675 1475 Emesis 200 Other: Feeding Ability Independent Urine Appearance Clear Clear Clear Urine Color Pale Yellow Pale Pale Urine Odor Normal Normal # Unmeasured Emesis 1 Exam: Lethargic Head Head exam: Present atraumatic and normal inspection Eye Eye exam: Present normal appearance ENT ENT exam: Present mucous membranes moist, normal exam and normal external ear exam Neck Neck exam: Present normal inspection Respiratory Respiratory exam: Present normal respiratory exam Cardiovascular Cardiovascular exam: Present normal rate and rhythm GI/Abdominal GI/Abdominal exam: Present normal bowel sounds Back Exam Back exam: Present normal inspection Neurological Exam Neurological exam: Present alert and oriented X3 Skin Skin exam: Present intact and warm OBJ DATA Labs CBC & Chem 7: 06/24/22 05:35 06/24/22 05:35 Labs: Abnormal Lab Results 06/24/22 06/24/22 06/23/22 05:35 05:35 23:45 WBC RBC 3.94 L Hgb 10.5 L Hct 33.9 L POC Hct RDW 15.9 H Plt Count Neut % (Auto) Lymph % (Auto) Lymph # (Auto) Pickett # (Auto) 0.94 H Immature Gran # Absolute Neutrophils ABG Methemoglobin VBG pH POC VBG pH POC VBG pCO2 at Temp VBG pO2 POC VBG pO2 VBG HCO3 POC VBG HCO3 VBG Total CO2 POC VBG Total CO2 VBG O2 Saturation POC Venous O2 Sat VBG Base Excess POC VBG Base Excess VBG Lactic Acid Carboxyhemoglobin Total Hemoglobin POC Sodium POC Potassium POC Chloride Chloride Carbon Dioxide POC Total CO2 POC BUN BUN 24 H 31 H Creatinine 3.0 H 3.2 H POC Creatinine Glucose 181 H 257 H POC Glucose Hemoglobin A1c POC WB Ioniz Calcium Phosphorus 2.1 L Magnesium 2.8 H Alkaline Phosphatase 119 H Beta-Hydroxybutyrate Urine Protein Urine Glucose (UA) Urine Ketones Urine Occult Blood 06/23/22 06/23/22 06/23/22 18:34 18:34 18:34 WBC RBC Hgb Hct POC Hct RDW Plt Count Neut % (Auto) Lymph % (Auto) Lymph # (Auto) Pickett # (Auto) Immature Gran # Absolute Neutrophils ABG Methemoglobin 0.3 L VBG pH 7.50 H POC VBG pH POC VBG pCO2 at Temp VBG pO2 121.2 H POC VBG pO2 VBG HCO3 31.9 H POC VBG HCO3 VBG Total CO2 33.1 H POC VBG Total CO2 VBG O2 Saturation 89.5 H POC Venous O2 Sat VBG Base Excess 8 H POC VBG Base Excess VBG Lactic Acid Carboxyhemoglobin 8.3 H Total Hemoglobin 11.5 L POC Sodium POC Potassium POC Chloride Chloride Carbon Dioxide 31 H POC Total CO2 POC BUN BUN 35 H Creatinine 3.3 H POC Creatinine Glucose 199 H POC Glucose Hemoglobin A1c POC WB Ioniz Calcium Phosphorus Magnesium Alkaline Phosphatase Beta-Hydroxybutyrate 0.28 H Urine Protein Urine Glucose (UA) Urine Ketones Urine Occult Blood 06/23/22 06/23/22 06/23/22 12:20 12:20 05:49 WBC RBC Hgb Hct POC Hct RDW Plt Count Neut % (Auto) Lymph % (Auto) Lymph # (Auto) Pickett # (Auto) Immature Gran # Absolute Neutrophils ABG Methemoglobin VBG pH POC VBG pH POC VBG pCO2 at Temp VBG pO2 POC VBG pO2 VBG HCO3 POC VBG HCO3 VBG Total CO2 POC VBG Total CO2 VBG O2 Saturation POC Venous O2 Sat VBG Base Excess POC VBG Base Excess VBG Lactic Acid Carboxyhemoglobin Total Hemoglobin POC Sodium POC Potassium POC Chloride Chloride 93 L 88 L Carbon Dioxide 33 H 39 H POC Total CO2 POC BUN BUN 43 H 47 H Creatinine 3.2 H 3.7 H POC Creatinine Glucose 217 H 257 H POC Glucose Hemoglobin A1c POC WB Ioniz Calcium Phosphorus Magnesium 3.5 H Alkaline Phosphatase 134 H Beta-Hydroxybutyrate 0.33 H Urine Protein Urine Glucose (UA) Urine Ketones Urine Occult Blood 06/23/22 06/22/22 06/22/22 05:49 23:49 22:36 WBC 14.6 H RBC 3.76 L Hgb 9.9 L Hct 31.1 L POC Hct RDW 16.0 H Plt Count Neut % (Auto) Lymph % (Auto) 11.3 L Lymph # (Auto) Pickett # (Auto) 1.54 H Immature Gran # 0.08 H Absolute Neutrophils 11.29 H ABG Methemoglobin 0.2 L VBG pH 7.56 H POC VBG pH POC VBG pCO2 at Temp VBG pO2 132.3 H POC VBG pO2 VBG HCO3 43.6 H* POC VBG HCO3 VBG Total CO2 45.1 H* POC VBG Total CO2 VBG O2 Saturation 92.5 H POC Venous O2 Sat VBG Base Excess 19 H POC VBG Base Excess VBG Lactic Acid Carboxyhemoglobin 5.6 H Total Hemoglobin 11.3 L POC Sodium POC Potassium POC Chloride Chloride 83 L Carbon Dioxide 40 H POC Total CO2 POC BUN BUN 58 H Creatinine 3.8 H POC Creatinine Glucose 399 H POC Glucose Hemoglobin A1c POC WB Ioniz Calcium Phosphorus Magnesium Alkaline Phosphatase Beta-Hydroxybutyrate Urine Protein Urine Glucose (UA) Urine Ketones Urine Occult Blood 06/22/22 06/22/22 06/22/22 15:52 14:06 14:05 WBC RBC Hgb Hct POC Hct 33.0 L 35.0 L RDW Plt Count Neut % (Auto) Lymph % (Auto) Lymph # (Auto) [place]ett # (Auto) Immature Gran # Absolute Neutrophils ABG Methemoglobin VBG pH POC VBG pH 7.59 H POC VBG pCO2 at Temp 52.7 H VBG pO2 POC VBG pO2 45 H VBG HCO3 POC VBG HCO3 50.4 H* VBG Total CO2 POC VBG Total CO2 > 50.0 H* VBG O2 Saturation POC Venous O2 Sat 86.0 H VBG Base Excess POC VBG Base Excess 29.0 H* VBG Lactic Acid Carboxyhemoglobin Total Hemoglobin POC Sodium POC Potassium 3.0 L POC Chloride 80 L 80 L Chloride Carbon Dioxide POC Total CO2 41.0 H 43.0 H* POC BUN 52 H 50 H BUN Creatinine POC Creatinine 4.1 H 4.1 H Glucose POC Glucose 594 H* 491 H* Hemoglobin A1c POC WB Ioniz Calcium 0.81 L 0.81 L Phosphorus Magnesium Alkaline Phosphatase Beta-Hydroxybutyrate Urine Protein Urine Glucose (UA) Urine Ketones Urine Occult Blood 06/22/22 06/22/22 06/22/22 10:45 10:41 10:40 WBC RBC Hgb Hct POC Hct 40.0 L RDW Plt Count Neut % (Auto) Lymph % (Auto) Lymph # (Auto) [place]ett # (Auto) Immature Gran # Absolute Neutrophils ABG Methemoglobin VBG pH POC VBG pH 7.68 H* POC VBG pCO2 at Temp VBG pO2 POC VBG pO2 VBG HCO3 POC VBG HCO3 58.4 H* VBG Total CO2 POC VBG Total CO2 > 50.0 H* VBG O2 Saturation POC Venous O2 Sat VBG Base Excess POC VBG Base Excess > 30.0 H* VBG Lactic Acid 3.2 H Carboxyhemoglobin Total Hemoglobin POC Sodium 126 L POC Potassium POC Chloride 70 L Chloride Carbon Dioxide POC Total CO2 45.0 H* POC BUN 56 H BUN Creatinine POC Creatinine 4.5 H Glucose POC Glucose > 700 H* Hemoglobin A1c 8.3 H POC WB Ioniz Calcium 0.79 L Phosphorus Magnesium Alkaline Phosphatase Beta-Hydroxybutyrate 3.41 H Urine Protein Urine Glucose (UA) Urine Ketones Urine Occult Blood 06/22/22 06/22/22 06/22/22 10:28 10:28 02:40 WBC 12.8 H RBC 4.42 L Hgb 11.6 L Hct 35.6 L POC Hct RDW 15.9 H Plt Count 503 H Neut % (Auto) 81.6 H Lymph % (Auto) 8.8 L Lymph # (Auto) 1.12 L Pickett # (Auto) 1.12 H Immature Gran # 0.07 H Absolute Neutrophils 10.40 H ABG Methemoglobin VBG pH POC VBG pH POC VBG pCO2 at Temp VBG pO2 POC VBG pO2 VBG HCO3 POC VBG HCO3 VBG Total CO2 POC VBG Total CO2 VBG O2 Saturation POC Venous O2 Sat VBG Base Excess POC VBG Base Excess VBG Lactic Acid Carboxyhemoglobin Total Hemoglobin POC Sodium POC Potassium POC Chloride Chloride Carbon Dioxide POC Total CO2 POC BUN BUN Creatinine POC Creatinine Glucose POC Glucose Hemoglobin A1c POC WB Ioniz Calcium Phosphorus Magnesium Alkaline Phosphatase 161 H Beta-Hydroxybutyrate Urine Protein 30 A Urine Glucose (UA) >=1000 A Urine Ketones 15 A Urine Occult Blood Trace-intact A Meds: Medications Albuterol/Ipratropium (Ipratropium/Albuterol 3 Ml Ampul.Neb) 3 ml NEB Q4HRT PRN PRN Reason: Wheezing Belladonna/Phenobarbital (Phenobarb/Hyoscy/Atropine/Scop 1 Dose Bottle) 1 dose PO Q6HP PRN PRN Reason: Dyspepsia Last Admin: 06/23/22 21:31 Dose: 1 dose Capsaicin (Capsaicin 0.025% Cream.Top 60gm) 1 dose TOPICAL QIDP PRN PRN Reason: Nausea And Vomiting Captopril (Captopril 12.5 Mg Tablet) 12.5 mg PO TID [facility] Last Admin: 06/23/22 21:19 Dose: 12.5 mg Clonidine HCl (Clonidine Tts 2 1 Patch Patch) 1 patch TD QWEEK [facility] Dextrose (Dextrose 50% 50 Ml Vial) 0 ml IV UD PRN PRN Reason: Per Sliding Scale Diagnostic Test (Pha) (Accu-Chek 1 Each Strip) 1 each FS ACHS [facility] Diagnostic Test (Pha) (Accu-Chek 1 Each Strip) 1 each FS ACHS [facility] Docusate Sodium (Docusate Sodium 100 Mg Capsule) 100 mg PO BID [facility] Last Admin: 06/23/22 21:08 Dose: Not Given Famotidine (Famotidine 20 Mg Tablet) 10 mg PO BID [facility] Last Admin: 06/23/22 21:18 Dose: 10 mg Fluoxetine HCl (Fluoxetine Hcl 20 Mg Capsule) 20 mg PO QDAY [facility] Glucose (Dextrose 31 Gm Oral.Susp) 15 gm PO PRN PRN PRN Reason: Hypoglycemia Haloperidol Lactate (Haloperidol Lactate 5 Mg/Ml Vial) 2 mg IV Q4HP PRN PRN Reason: Nausea And Vomiting Heparin Sodium (Porcine) (Heparin 5,000 Unit/Ml Vial) 5,000 unit SQ Q12 [facility] Last Admin: 06/23/22 21:18 Dose: 5,000 unit Hydralazine HCl (Hydralazine 20 Mg/Ml Vial) 10 mg IV Q4-6HP PRN PRN Reason: Hypertension Last Admin: 06/24/22 05:09 Dose: 10 mg Potassium Chloride 20 meq/ (Sodium Chloride) 1,010 mls @ 250 mls/hr IV CONT PRN PRN Reason: BLOOD GLUCOSE Last Infusion: 06/23/22 02:04 Dose: Infused Potassium Chloride/Dextrose/Sod Cl (Dextrose 5%-1/2ns W/20meq Kcl) 1,000 mls @ 250 mls/hr IV .Q4H [facility] Last Admin: 06/24/22 06:48 Dose: 250 mls/hr Insulin Human Regular 50 unit/ (Sodium Chloride) 100 mls @ 4 mls/hr IV DUR [facility]; Protocol Last Admin: 06/23/22 18:05 Dose: 2 unit/hr, 4 mls/hr Insulin Human Lispro (Insulin Lispro 1 Unit/0.01 Ml Unit) 0 unit SQ ACHS [facility]; Protocol Lorazepam (Lorazepam 2 Mg/Ml Vial) 1 mg IV Q4HP PRN PRN Reason: Nausea And Vomiting Last Admin: 06/24/22 06:21 Dose: 1 mg Mirtazapine (Mirtazapine 15 Mg Tablet) 15 mg PO HS [facility] Last Admin: 06/23/22 21:19 Dose: 15 mg Ondansetron HCl (Ondansetron 4 Mg/2 Ml Vial) 4 mg IV Q4-6HP PRN; Protocol PRN Reason: Nausea And Vomiting Last Admin: 06/24/22 02:23 Dose: 4 mg Promethazine HCl (Promethazine 25 Mg/Ml Vial) 25 mg IV Q4-6HP PRN; Protocol PRN Reason: Nausea And Vomiting Last Admin: 06/24/22 02:24 Dose: 25 mg Senna (Sennosides 1 Tablet) 1 tab PO DAILY [facility] Sodium Chloride (0.9 % Sodium Chloride 10 Ml Syringe) 10 ml IV Q8 [facility] Last Admin: 06/24/22 05:17 Dose: Not Given Sucralfate (Sucralfate 1 Gm Tablet) 1 gm PO BID [facility] Last Admin: 06/23/22 21:18 Dose: 1 gm Venlafaxine HCl (Venlafaxine 75 Mg Cap.Xl.24h) 225 mg PO QAM [facility] ABG Interpretation ABG results: 06/22/22 06/22/22 06/23/22 20:08 22:36 18:34 ABG Methemoglobin TNP 0.2 L 0.3 L VBG pH TNP 7.56 H 7.50 H VBG pCO2 TNP 49.5 41.8 VBG pO2 TNP 132.3 H 121.2 H VBG HCO3 TNP 43.6 H* 31.9 H VBG Total CO2 TNP 45.1 H* 33.1 H VBG O2 Saturation TNP 92.5 H 89.5 H VBG Base Excess TNP 19 H 8 H A/P Assessment and plan (1) Renal failure (ARF), acute on chronic: Status: Acute Comment: Established pattern on N/V dehydration and AFR (2) Acid-base disorder, mixed: Status: Acute Comment: Hypochloremic (chloride sensitive) metabolic alkalosis from gastic acid loss and a volume contraction related metabolic alkalosis, respiratory alkalosis. Hidden in this is an Anion Gap metabolic acidosis due to DKA (3) Type 1 diabetes mellitus with hyperosmolar hyperglycemic state (HHS): Status: Acute (4) GERD (gastroesophageal reflux disease): Status: Chronic Qualifiers: Esophagitis presence: esophagitis presence not specified Qualified Code(s): K21.9 - Gastro-esophageal reflux disease without esophagitis (5) Depression: Status: Acute (6) Anemia associated with stage 4 chronic renal failure: Status: Acute (7) Gastroparesis: Status: Acute Narrative A/P Narrative: Assessment and Plans: 1. Hyperosmolar hyperglycemic state associated with type 1 diabetes mellitus, clinical picture overlapping with DKA, complicated by contraction alkalosis due to gastroparesis: Inpatient ICU with telemetry HgA1c 8.3 Beta hydroxybutyrate level normalized, start transitioning from insulin pump to SQ insulin with insulin pump, with 2 hours overlap. After which, will d/c insulin pump and saline lock. Will start feeding patient with CC diet. Insulin Lispro SSI AC HS Accu Check AC HS Hypoglycemia protocol Diabetes education referral Andrey Phenergan Ativan Haldol Capsaicin 2. Acute on kidney kidney disease: Avoid nephrotoxic agents Consult wireless sales expert Dr. Mills, recs. appreciated IV fluid, see above Serial chemistry to trend kidney functions, see above 3. Anemia associated with chronic kidney disease IV: cbc w/ auto diff in the morning to trend H/H 4. GERD: Pepcid 5. Depression: Fluoxetine Mirtazapine Venlafaxine GI ppx: Pepcid DVT ppx: Heparin Code status: Full Prognosis: Guarded Disposition: inpatient ICU Critical Care Time: 60min Plan of Treatment: As outline above and discussed with Dr Freeman Time Spent With Patient Time: Total time spent is greater than 50% in coordination of care (as documented) at patient's floor/unit and/or counseling patient: Total time spent with greater than 50% in coordination of care (as documented) at patient's floor/unit and/or counseling patient:: 50 - 70 minutes Critical Care Time: Yes Total Critical Care Time: 60
[2022-06-24] MEDS: DOCUSATE SODIUM 100 MG CAPSULE PO SCH ×2 (08:35→20:56)
[2022-06-24] MEDS: SENNOSIDES 1 TABLET PO SCH (08:35)
[2022-06-24] MEDS: SUCRALFATE 1 GM TABLET PO SCH ×2 (09:16→20:54)
[2022-06-24] MEDS: CAPTOPRIL 12.5 MG TABLET PO SCH ×3 (09:16→20:54)
[2022-06-24] MEDS: FAMOTIDINE 20 MG TABLET PO SCH ×2 (09:16→20:55)
[2022-06-24] MEDS: FLUoxetine HCL 20 MG CAPSULE PO SCH (09:16)
[2022-06-24] MEDS: VENLAFAXINE 75 MG CAP.XL.24H PO SCH (09:16)
[2022-06-24] MEDS: HEPARIN 5,000 UNIT/ML VIAL SQ SCH ×2 (09:16→20:55)
[2022-06-24] MEDS: INSULIN LISPRO 1 UNIT/0.01 ML UNIT SQ SCH ×3 (11:55→20:54)
--- NOTE | 2022-06-24 17:40 | Nephrology Progress Note ---
SUBJECTIVE Subjective Patient information: Note initiated : 06/24/22 at 5:39 pm Service Date, if different from initiated Date: [] Patient: Mauri Levine 36 y/o M admitted on 06/22/22 for n/v. Chief Complaint: [n/v] Principal diagnosis: DKA, cyclic vomiting syndrome with THC abuse, dehydration, mixed metabolic, Interval history: Improved. No nausea, vomiting. Insulin gtt off and back on insulin pump basal plus SS coverage. Electrolytes, acid base and GFR improving. Transitioning to home BP Rx. The elephant in the room and the root cause of his problem is not being addressed. I doubt he will make it to [place] without a repeat visit to [facility]. His problems include THC dependence and a probable eating disorder, THC induced cyclic vomiting, in the setting of 'Brittle Type I DM". I strongly suggest pschological intervention with CBT. Failing that, institutionalization to keep him as free as possible from THC and control is food intake while carefully monitoring BS and insulin Tx. He is well on the way to ESRD where his survival will be <4yrs with a lot of hospitalization given his clinical course to date. Vital Signs Temp Pulse Resp BP Pulse Ox O2 Del Method 06/24/22 17:17 15 144/94 98 06/24/22 15:01 37.2 C 21 135/74 99 06/24/22 14:00 28 H 178/96 98 06/24/22 13:54 22 06/24/22 13:00 22 188/102 06/24/22 12:00 37.4 C H 119 H 18 157/108 100 06/24/22 08:00 100 Room Air 06/24/22 11:01 118 H 21 157/125 100 06/24/22 10:47 112 H 35 H 180/88 100 06/24/22 10:16 31 H 213/113 06/24/22 10:00 23 H 192/100 06/24/22 09:00 19 171/107 06/24/22 08:00 37.6 C H 97 H 22 159/81 99 06/24/22 07:00 102 H 21 169/89 99 06/24/22 06:00 105 H 19 169/91 98 Room Air 06/24/22 05:00 104 H 18 205/89 98 Room Air 06/24/22 04:00 36.8 C 94 H 18 174/85 100 Room Air 06/24/22 03:02 95 H 21 187/84 100 Room Air 06/24/22 02:00 99 Room Air 06/24/22 02:01 36.8 C 83 21 136/79 98 Room Air 06/24/22 01:00 85 23 H 112/59 97 Room Air 06/24/22 00:01 37.4 C H 89 22 136/68 97 06/23/22 23:06 103 H 26 H 225/110 100 06/23/22 22:03 84 24 H 145/77 99 06/23/22 21:00 85 18 134/81 98 06/23/22 20:01 37.1 C 83 22 115/58 96 06/23/22 19:17 99 Room Air 06/23/22 19:01 22 150/82 97 06/23/22 18:01 20 128/86 Intake and Output 06/24/22 06/24/22 06/24/22 03:59 11:59 19:59 Intake Total 2950 2264 960 Output Total 1675 2675 Balance 1275 -411 960 Intake: IV 2000 1864 Dextrose 5%-1/2Ns W/20Meq KCl 1 2000 1800 ,000 ml @ 250 mls/hr IV .Q4H [facility] Rx#:[id number] HumuLIN R 50 UNIT In Sodium 64 Chloride 0.9% 99.5 ml @ Per Protocol 4 mls/hr IV DUR [facility] Rx #:[id number] Oral 950 400 960 Output: Void Amount 1675 2675 Other: Meal Lunch Percent of Meal Consumed 75% Feeding Ability Independent Independent Urine Appearance Clear Clear Urine Color Yellow Pale Pale Urine Odor Normal Normal Weight 71.713 kg Patient Weight 06/25/22 03:59 Weight 71.713 kg Pertinent ROS: Nothing new Additional PMFSH (Level 3 Only): Fely eating per Mon THC dependence per medical record Does not have gastroparesis at this time Constitutional Vitals: Vital Signs Temp Pulse Resp BP Pulse Ox O2 Del Method O2 Flow Rate 37.2 C 119 H 15 144/94 98 1 06/24/22 15:01 06/24/22 12:00 06/24/22 17:17 06/24/22 17:17 06/24/22 17:17 06/24/22 08:00 06/23/22 08:00 Period Temp Pulse Resp BP Sys/Menard Pulse Ox O2 Del Method O2 Flow Rate Last 24 Hr 36.8 C-37.6 C 83-119 15-35 112-225/58-125 96-100 Room Air-Room Air Intake and Output 06/24/22 06/24/22 06/24/22 03:59 11:59 19:59 Intake Total 2950 2264 960 Output Total 1675 2675 Balance 1275 -411 960 Weight 71.713 kg Patient Weight 06/25/22 03:59 Weight 71.713 kg Intake & Output: Intake & Output 06/24/22 06/24/22 06/24/22 03:59 11:59 19:59 Intake Total 2950 2264 960 Output Total 1675 2675 Balance 1275 -411 960 Weight 71.713 kg Intake: IV 2000 1864 Dextrose 5%-1/2Ns W/20Meq KCl 1 2000 1800 ,000 ml @ 250 mls/hr IV .Q4H [facility] Rx#:[id number] HumuLIN R 50 UNIT In Sodium 64 Chloride 0.9% 99.5 ml @ Per Protocol 4 mls/hr IV DUR [facility] Rx #:[id number] Oral 950 400 960 Output: Void Amount 1675 2675 Other: Meal Lunch Percent of Meal Consumed 75% Feeding Ability Independent Independent Urine Appearance Clear Clear Urine Color Yellow Pale Pale Urine Odor Normal Normal General appearance: no acute distress Eye Additional comments: closed Respiratory Respiratory exam: Present normal respiratory exam Cardiovascular Cardiovascular exam: Present normal rate and rhythm, +S1 and +S2 Psychiatric Psychiatric exam: Present depressed and flat affect Skin Skin exam: Present dry A/P Assessment and plan (1) Cyclic vomiting syndrome: Status: Chronic Comment: The patient believes this is due to his gastroparesis...However gastic emptying time is normal. I am SURE cannabis has a role in cause of cyclic vomiting and would prefer that he stop it to eliminate THC the cause of worsening vomiting, dehydration etc. (2) Tetrahydrocannabinol (THC) use disorder, moderate, dependence: Status: Chronic Comment: Every UDS is (+) THC Needs help not to be enabled THC is the cause of his N/V, not "gastroparesis" otherwise why does he get better in the hospital as the only thing that's different is inability to access THC products, not that his gastroparesis has miraculously gone away (3) Binge eating disorder: Status: Chronic Comment: James reports this behavior. Obvious psychological attempt for control in a patient who has no control of his DM and soon ESRD. Needs CBT and psychological support. (4) Renal failure (ARF), acute on chronic: Status: Acute Comment: Established pattern on N/V dehydration and AFR. Underlying T2DM with nephropathy. Losing addition nephron mass with each cycle of dehydration and pre renal insult to someone who already has decrease nephron mass from diabetes. (5) Acid-base disorder, mixed: Status: Acute Comment: Hypochloremic (chloride sensitive) metabolic alkalosis from gastic acid loss and a volume contraction related metabolic alkalosis, respiratory alkalosis. Hidden in this is an Anion Gap metabolic acidosis due to DKA (6) DKA, type 1, not at goal: Status: Acute Comment: The anion gap is present but "hidden" by the huge metabolic and respiratory alkalosis. Narrative A/P Narrative: 1. Should be good to go tomorrow 2. Suggest protective services social worker help with referral to psychologist for CBT to help the THC dependency and eating disorder. Need to involve mother in the counseling. Plan of Treatment: As above Time Spent With Patient Time: Total time spent is greater than 50% in coordination of care (as documented) at patient's floor/unit and/or counseling patient:
[2022-06-24] MEDS: MIRTAZAPINE 15 MG TABLET PO SCH (20:55)
[2022-06-24] MEDS ORDERED: rOPINIRole 0.25 MG TABLET PO PRN (22:51)
[2022-06-25] MEDS: LORazepam 2 MG/ML VIAL IV PRN (00:15)
[2022-06-25] MEDS: hydrALAZINE 20 MG/ML VIAL IV PRN ×2 (02:09→05:55)
[2022-06-25] MEDS: PROMETHAZINE 25 MG/ML VIAL IV PRN ×3 (02:28→19:39)
[2022-06-25] MEDS: 0.9 % SODIUM CHLORIDE 10 ML SYRINGE IV SCH ×3 (06:13→22:04)
--- NOTE | 2022-06-25 07:17 | EKG ---
[facility] Test Date: 2022-06-22 Pat Name: Mauri Levine Department: ED Room: Gender: Male Snout Puller: STACIA : 1985 Requested By: Alok Cullen Order Number: [id number] Reading MD: Demetrius Interiano M.D. Measurements Intervals [place] Rate: 109 P: 60 CO: 148 QRS: 72 QRSD: 80 T: 100 QT: 400 QTc: 538 Interpretive Statements Sinus tachycardia Consider right atrial enlargement Probable LVH with secondary repol abnrm Prolonged QT interval Electronically Signed On 06-25-2022 7:17:06 PST by Demetrius Interiano M.D. /store/[id number]
[2022-06-25] MEDS: INSULIN LISPRO 1 UNIT/0.01 ML UNIT SQ SCH ×4 (07:21→21:14)
[2022-06-25 07:24] LABS: Basophils % (Auto) 1.5 % (0.0-2.0); Eosinophils # (Auto) 0.08 K/mcL (0.00-0.70); Eosinophils % (Auto) 1.2 % (0.0-7.0); Hematocrit 35.4 % (40.1-51.0); Hemoglobin 10.9 g/dL (13.7-17.5); Lymphocytes # (Auto) 2.11 K/mcL (1.50-4.80); Mean Cell Volume 85.3 fL (80.0-100.0); Mean Corpuscular HGB Conc 30.8 g/dL (31.0-36.0); Mean Platelet Volume 10.3 fL (8.8-12.5); Monocytes # (Auto) 0.54 K/mcL (0.10-0.90); Monocytes % (Auto) 8.2 % (1.0-12.0); Neutrophils % (Auto) 56.8 % (38.0-78.0); Platelet Count 338 K/mcL (140-440); RBC 4.15 M/mcL (4.63-6.08); Red Cell Distribution Width 15.9 % (11.5-14.5); WBC 6.6 K/mcL (4.5-11.0)
[2022-06-25 07:55] LABS: ALT/SGPT 12 U/L (<40); AST/SGOT 16 U/L (<40); Albumin 3.8 gm/dL (3.2-5.2); Albumin/Globulin Ratio 1.3 (1.0-2.3); Alkaline Phosphatase 132 U/L (39-117); Bilirubin,Total 0.4 mg/dL (0.1-1.0); Blood Urea Nitrogen 25 mg/dL (6-20); Carbon Dioxide 21 mmol/L (22-30); Chloride 99 mmol/L (96-108); Glomerular Filtration Rate 24; Glucose 135 mg/dL (70-105)
--- NOTE | 2022-06-25 08:10 | Nephrology Progress Note ---
SUBJECTIVE Subjective Patient information: Note initiated : 06/25/22 at 8:06 am Service Date, if different from initiated Date: [] Patient: Mauri Levine 36 y/o M admitted on 06/22/22 for n/v. Chief Complaint: [n/v] Principal diagnosis: DKA, cyclic vomiting syndrome with THC abuse, dehydration, mixed metabolic, Interval history: Off insulin gtt using insulin pump. BP elevated Mood better, good eye contact Waiting placement in nursing home Vital Signs Temp Pulse Pulse Resp BP Pulse Ox O2 Del Method 06/25/22 08:02 27 H 06/25/22 08:00 37.4 C H 20 185/103 96 06/25/22 07:02 20 131/94 06/25/22 06:15 107 H 24 H 179/88 100 06/25/22 06:14 107 H 21 100 06/25/22 06:00 105 H 17 196/111 100 06/25/22 05:03 104 H 22 187/114 99 06/25/22 04:50 32 H 06/25/22 04:00 36.1 C 19 183/94 100 Room Air 06/25/22 03:03 104 H 17 136/89 100 06/25/22 02:10 99 H 25 H 182/105 100 06/25/22 01:26 18 06/25/22 01:00 22 166/102 Room Air 06/25/22 00:39 92 H 100 Room Air 06/25/22 00:43 22 06/25/22 00:01 37.0 C 23 H 131/68 100 Room Air 06/24/22 23:21 22 06/24/22 23:00 98 H 21 161/92 100 Room Air 06/24/22 22:24 32 H 06/24/22 22:00 30 H 197/117 06/24/22 21:10 24 H 161/81 06/24/22 20:16 17 06/24/22 20:00 36.7 C 17 115/59 97 Room Air 06/24/22 19:02 103 H 19 114/70 97 06/24/22 18:19 25 H 173/92 06/24/22 18:57 102 H 100 Room Air 06/24/22 18:15 21 173/92 06/24/22 18:08 16 203/105 06/24/22 18:04 19 185/104 06/24/22 17:17 15 144/94 98 06/24/22 15:01 37.2 C 21 135/74 99 06/24/22 14:00 28 H 178/96 98 06/24/22 14:30 98 Room Air 06/24/22 13:54 22 06/24/22 13:00 22 188/102 06/24/22 12:00 37.4 C H 119 H 18 157/108 100 06/24/22 11:01 118 H 21 157/125 100 06/24/22 10:47 112 H 35 H 180/88 100 06/24/22 10:16 31 H 213/113 06/24/22 10:00 23 H 192/100 06/24/22 09:00 19 171/107 Intake and Output 06/24/22 06/25/22 06/25/22 19:59 03:59 11:59 Intake Total 1450 840 0 Output Total 850 975 775 Balance 600 135 775 Intake: Oral 1450 840 0 Output: Void Amount 850 975 775 Other: Meal Dinner Percent of Meal Consumed 25% Feeding Ability Assist with Tray Set Up Urine Appearance Clear Clear Clear Urine Color Pale Yellow Bright Yellow Urine Odor Normal # Bowel Movements 0 Weight 71.713 kg 73.482 kg Medications Albuterol/Ipratropium (Ipratropium/Albuterol 3 Ml Ampul.Neb) 3 ml NEB Q4HRT PRN PRN Reason: Wheezing Belladonna/Phenobarbital (Phenobarb/Hyoscy/Atropine/Scop 1 Dose Bottle) 1 dose PO Q6HP PRN PRN Reason: Dyspepsia Last Admin: 06/23/22 21:31 Dose: 1 dose Capsaicin (Capsaicin 0.025% Cream.Top 60gm) 1 dose TOPICAL QIDP PRN PRN Reason: Nausea And Vomiting Captopril (Captopril 12.5 Mg Tablet) 12.5 mg PO TID [facility] Last Admin: 06/24/22 20:54 Dose: 12.5 mg Clonidine HCl (Clonidine Tts 2 1 Patch Patch) 1 patch TD QWEEK [facility] Dextrose (Dextrose 50% 50 Ml Vial) 0 ml IV UD PRN PRN Reason: Per Sliding Scale Diagnostic Test (Pha) (Accu-Chek 1 Each Strip) 1 each FS ACHS [facility] Last Admin: 06/25/22 07:19 Dose: 1 each Docusate Sodium (Docusate Sodium 100 Mg Capsule) 100 mg PO BID [facility] Last Admin: 06/24/22 20:56 Dose: Not Given Famotidine (Famotidine 20 Mg Tablet) 10 mg PO BID [facility] Last Admin: 06/24/22 20:55 Dose: 10 mg Fluoxetine HCl (Fluoxetine Hcl 20 Mg Capsule) 20 mg PO QDAY [facility] Last Admin: 06/24/22 09:16 Dose: 20 mg Glucose (Dextrose 31 Gm Oral.Susp) 15 gm PO PRN PRN PRN Reason: Hypoglycemia Haloperidol Lactate (Haloperidol Lactate 5 Mg/Ml Vial) 2 mg IV Q4HP PRN PRN Reason: Nausea And Vomiting Heparin Sodium (Porcine) (Heparin 5,000 Unit/Ml Vial) 5,000 unit SQ Q12 [facility] Last Admin: 06/24/22 20:55 Dose: 5,000 unit Hydralazine HCl (Hydralazine 20 Mg/Ml Vial) 10 mg IV Q4-6HP PRN PRN Reason: Hypertension Last Admin: 06/25/22 05:55 Dose: 10 mg Insulin Human Lispro (Insulin Lispro 1 Unit/0.01 Ml Unit) 0 unit SQ [facility]; Protocol Last Admin: 06/25/22 07:21 Dose: 6 units Lorazepam (Lorazepam 2 Mg/Ml Vial) 1 mg IV Q4HP PRN PRN Reason: Nausea And Vomiting Last Admin: 06/25/22 00:15 Dose: 1 mg Mirtazapine (Mirtazapine 15 Mg Tablet) 15 mg PO HS [facility] Last Admin: 06/24/22 20:55 Dose: 15 mg Ondansetron HCl (Ondansetron 4 Mg/2 Ml Vial) 4 mg IV Q4-6HP PRN; Protocol PRN Reason: Nausea And Vomiting Last Admin: 06/24/22 17:07 Dose: 4 mg Promethazine HCl (Promethazine 25 Mg/Ml Vial) 25 mg IV Q4-6HP PRN; Protocol PRN Reason: Nausea And Vomiting Last Admin: 06/25/22 02:28 Dose: 25 mg Ropinirole HCl (Ropinirole 0.25 Mg Tablet) 0.5 mg PO HSP PRN PRN Reason: restless leg Senna (Sennosides 1 Tablet) 1 tab PO DAILY [facility] Last Admin: 06/24/22 08:35 Dose: Not Given Sodium Chloride (0.9 % Sodium Chloride 10 Ml Syringe) 10 ml IV Q8 [facility] Last Admin: 06/25/22 06:13 Dose: 10 ml Sucralfate (Sucralfate 1 Gm Tablet) 1 gm PO BID [facility] Last Admin: 06/24/22 20:54 Dose: 1 gm Venlafaxine HCl (Venlafaxine 75 Mg Cap.Xl.24h) 225 mg PO QAM [facility] Last Admin: 06/24/22 09:16 Dose: 225 mg Serum Creatinine Pertinent ROS: nothing new Additional PMFSH (Level 3 Only): N/A Constitutional Vitals: Vital Signs Temp Pulse Resp BP Pulse Ox O2 Del Method O2 Flow Rate 37.4 C H 107 H 27 H 185/103 96 0 06/25/22 08:00 06/25/22 06:15 06/25/22 08:02 06/25/22 08:00 06/25/22 08:00 06/25/22 04:00 06/25/22 04:00 Period Temp Pulse Resp BP Sys/Menard Pulse Ox O2 Del Method O2 Flow Rate Last 24 Hr 36.1 C-37.4 C 92-119 15-35 114-213/59-125 96-100 Room Air-Room Air 0-0 Intake and Output 06/24/22 06/25/22 06/25/22 19:59 03:59 11:59 Intake Total 1450 840 0 Output Total 850 975 775 Balance 600 -135 -775 Weight 71.713 kg 73.482 kg Intake & Output: Intake & Output 06/24/22 06/25/22 06/25/22 19:59 03:59 11:59 Intake Total 1450 840 0 Output Total 850 975 775 Balance 600 -135 -775 Weight 71.713 kg 73.482 kg Intake: Oral 1450 840 0 Output: Void Amount 850 975 775 Other: Meal Dinner Percent of Meal Consumed 25% Feeding Ability Assist with Tray Set Up Urine Appearance Clear Clear Clear Urine Color Pale Yellow Bright Yellow Urine Odor Normal # Bowel Movements 0 Prescriptions: New ondansetron 4 mg tablet,disintegrating 4 mg PO Q6H PRN (Reason: nausea and vomiting) Qty: 20 0RF clonidine 0.3 mg/24 hr Patch Weekly 1 patch TD Fr@1000 Qty: 4 2RF ropinirole 0.25 mg Tablet 0.5 mg PO HSP PRN (Reason: restless leg) Qty: 10 2RF diltiazem HCl 30 mg Tablet 60 mg PO Q8 Qty: 90 2RF diphenhydramine HCl [EZ Nite Sleep] 25 mg capsule 25 mg PO QHS PRN (Reason: insomnia) Qty: 30 1RF Continued insulin aspart U-100 [Novolog U-100 Insulin aspart] 100 unit/mL solution See Rx Instructions subcut TID Qty: 60 1RF Rx Instructions: subcut three times daily with meals; Moderate Dose Scale Blood Sugar (mg/dL), Units Insulin 70-130, 0 units 131-180, 4 units 181-240, 8 units 241-300, 10 units 301-350, 12 units 351-400, 16 units >400, 20 units and call MD (DME) insulin syringes (disposable) 1 mL syringe See Rx Instructions .Route Qty: 500 0RF Rx Instructions: use for insulin three times daily Baqsimi 3 mg/actuation spray,non-aerosol 3 mg intranasal ONCE PRN (Reason: hypoglycemia) Qty: 1 0RF Rx Instructions: 1 spray intranasal as needed ondansetron 4 mg tablet,disintegrating 4 mg PO Q8H Qty: 120 0RF fluoxetine 20 mg capsule 20 mg PO QDAY Qty: 90 0RF famotidine 20 mg tablet 10 mg PO BID Qty: 90 0RF sucralfate [Carafate] 1 gram tablet 1 g PO BID Qty: 70 0RF venlafaxine 75 mg capsule,extended release 24hr 225 mg PO QAM Qty: 90 5RF mirtazapine 15 mg tablet,disintegrating 15 mg PO HS Qty: 90 0RF (DME) Dexcom sensor & monitor See Rx Instructions .Route .MEDSUPPLY Qty: 1 0RF Rx Instructions: As directed promethazine [Promethegan] 25 mg suppository 25 mg AL Q6H PRN (Reason: nausea and vomiting) Qty: 12 0RF (DME) blood-glucose meter Misc See Rx Instructions .Route Qty: 1 3RF Rx Instructions: use to test blood sugar 5 times daily (DME) Blood Glucose Test Strip See Rx Instructions .ROUTE .MEDSUPPLY Qty: 500 3RF Rx Instructions: use to test blood sugar 5 times daily (DME) lancets Misc See Rx Instructions .Route Qty: 500 3RF Rx Instructions: use to test blood sugar 5 times daily (DME) Ketone Urine Test Strip See Rx Instructions .Route Qty: 100 0RF Rx Instructions: use to test urine for ketones daily Discontinued clonidine 0.2 mg/24 hr patch weekly 1 patch transdermal QWEEK Qty: 4 2RF Rx Instructions: Change on Mondays captopril 12.5 mg tablet 12.5 mg PO TID Qty: 90 11RF Rx Instructions: Skip dose if vomiting or BP < 120 mmHg General appearance: average body habitus and no acute distress Head Head exam: Present normal inspection Eye Eye exam: Present EOMI and PERRL; Absent scleral icterus Neck Neck exam: Absent meningismus Respiratory Respiratory exam: Present normal respiratory exam and CTAB Cardiovascular Cardiovascular exam: Present +S1, +S2 and tachycardia GI/Abdominal GI/Abdominal exam: Present normal bowel sounds Neurological Exam Neurological exam: Present CN II-XII intact and oriented X3 Psychiatric Psychiatric exam: Present flat affect Skin Skin exam: Present dry A/P Assessment and plan (1) Binge eating disorder: Status: Chronic Comment: Mother reports this behavior. Obvious psychological attempt for control in a patient who has no control of his DM and soon ESRD. Needs CBT and psychological support. (2) Tetrahydrocannabinol (THC) use disorder, moderate, dependence: Status: Chronic Comment: Every UDS is (+) THC Needs help - not to be enabled THC is the cause of his N/V, not "gastroparesis" otherwise why does he get better in the hospital as the only thing that's different is inability to access THC products, not that his gastroparesis has miraculously gone away (3) Intractable cyclical vomiting with nausea: Status: Acute Comment: As above. I remain suspecious of cyclic vomiting from THC use > DM gastroparesis Tie-breaking nuclear med gastric emptying time as outpatient Has GI motility specialist in [place] (4) Renal failure (ARF), acute on chronic: Status: Acute Comment: Established pattern on N/V dehydration and AFR. Underlying T2DM with nephr opathy. Losing addition nephron mass with each cycle of dehydration and pre renal insult to someone who already has decrease nephron mass from diabetes. (5) Nausea & vomiting: Status: Acute Comment: I'll never be convinience this is anything but THC related cyclic vomiting Qualifiers: Vomiting type: unspecified Qualified Code(s): R11.2 - Nausea with vomiting, unspecified (6) Acid-base disorder, mixed: Status: Acute Comment: Hypochloremic (chloride sensitive) metabolic alkalosis from gastic acid loss and a volume contraction related metabolic alkalosis, respiratory alkalosis. Hidden in this is an Anion Gap metabolic acidosis due to DKA (7) DKA, type 1, not at goal: Status: Acute Comment: The anion gap is present but "hidden" by the huge metabolic and respiratory alkalosis. (8) Metabolic acidosis with respiratory alkalosis: Status: Acute Comment: As above (9) Acute worsening of stage 4 chronic kidney disease: Status: Acute Narrative A/P Narrative: No obvious plans for placement in group [facility] or psychologist/MH for CBT / treatment of jacquelin eating disorder and THC abuse Plan of Treatment: Prescriptions: New ondansetron 4 mg tablet,disintegrating 4 mg PO Q6H PRN (Reason: nausea and vomiting) Qty: 20 0RF clonidine 0.3 mg/24 hr Patch Weekly 1 patch TD Fr@1000 Qty: 4 2RF ropinirole 0.25 mg Tablet 0.5 mg PO HSP PRN (Reason: restless leg) Qty: 10 2RF diltiazem HCl 30 mg Tablet 60 mg PO Q8 Qty: 90 2RF diphenhydramine HCl [EZ Nite Sleep] 25 mg capsule 25 mg PO QHS PRN (Reason: insomnia) Qty: 30 1RF Continued insulin aspart U-100 [Novolog U-100 Insulin aspart] 100 unit/mL solution See Rx Instructions subcut TID Qty: 60 1RF Rx Instructions: subcut three times daily with meals; Moderate Dose Scale Blood Sugar (mg/dL), Units Insulin 70-130, 0 units 131-180, 4 units 181-240, 8 units 241-300, 10 units 301-350, 12 units 351-400, 16 units >400, 20 units and call MD (DME) insulin syringes (disposable) 1 mL syringe See Rx Instructions .Route Qty: 500 0RF Rx Instructions: use for insulin three times daily Baqsimi 3 mg/actuation spray,non-aerosol 3 mg intranasal ONCE PRN (Reason: hypoglycemia) Qty: 1 0RF Rx Instructions: 1 spray intranasal as needed ondansetron 4 mg tablet,disintegrating 4 mg PO Q8H Qty: 120 0RF fluoxetine 20 mg capsule 20 mg PO QDAY Qty: 90 0RF famotidine 20 mg tablet 10 mg PO BID Qty: 90 0RF sucralfate [Carafate] 1 gram tablet 1 g PO BID Qty: 70 0RF venlafaxine 75 mg capsule,extended release 24hr 225 mg PO QAM Qty: 90 5RF mirtazapine 15 mg tablet,disintegrating 15 mg PO HS Qty: 90 0RF (DME) Dexcom sensor & monitor See Rx Instructions .Route .MEDSUPPLY Qty: 1 0RF Rx Instructions: As directed promethazine [Promethegan] 25 mg suppository 25 mg AL Q6H PRN (Reason: nausea and vomiting) Qty: 12 0RF (DME) blood-glucose meter Misc See Rx Instructions .Route Qty: 1 3RF Rx Instructions: use to test blood sugar 5 times daily (DME) Blood Glucose Test Strip See Rx Instructions .ROUTE .MEDSUPPLY Qty: 500 3RF Rx Instructions: use to test blood sugar 5 times daily (DME) lancets Misc See Rx Instructions .Route Qty: 500 3RF Rx Instructions: use to test blood sugar 5 times daily (DME) Ketone Urine Test Strip See Rx Instructions .Route Qty: 100 0RF Rx Instructions: use to test urine for ketones daily Discontinued clonidine 0.2 mg/24 hr patch weekly 1 patch transdermal QWEEK Qty: 4 2RF Rx Instructions: Change on Mondays captopril 12.5 mg tablet 12.5 mg PO TID Qty: 90 11RF Rx Instructions: Skip dose if vomiting or BP < 120 mmHg Time Spent With Patient Time: Total time spent is greater than 50% in coordination of care (as documented) at patient's floor/unit and/or counseling patient:
[2022-06-25] MEDS ORDERED: cloNIDine TTS 2 1 PATCH PATCH TD ONE (08:12)
[2022-06-25] MEDS ORDERED: DILTIAZEM 25 MG/5 ML VIAL IV PRN (08:20)
[2022-06-25] MEDS: DOCUSATE SODIUM 100 MG CAPSULE PO SCH ×2 (08:44→21:12)
[2022-06-25] MEDS: FAMOTIDINE 20 MG TABLET PO SCH (08:44)
[2022-06-25] MEDS: SUCRALFATE 1 GM TABLET PO SCH ×2 (08:44→21:12)
[2022-06-25] MEDS: FLUoxetine HCL 20 MG CAPSULE PO SCH (08:44)
[2022-06-25] MEDS: VENLAFAXINE 75 MG CAP.XL.24H PO SCH (08:44)
[2022-06-25] MEDS: HEPARIN 5,000 UNIT/ML VIAL SQ SCH ×2 (08:44→21:12)
[2022-06-25] MEDS: SENNOSIDES 1 TABLET PO SCH (08:44)
[2022-06-25] MEDS: CAPTOPRIL 12.5 MG TABLET PO SCH ×3 (08:47→21:13)
[2022-06-25] MEDS ORDERED: DEXTROSE 50% 50 ML SYRINGE IV ONE (08:53)
[2022-06-25] MEDS: ONDANSETRON 4 MG/2 ML VIAL IV PRN (09:01)
--- NOTE | 2022-06-25 09:27 | Discharge Summary ---
Discharge Provider Provider IMPORTANT FOLLOW-UP INFORMATION FOR PCP: Patient information: Note initiated : 06/25/22 at 9:25 am Service Date, if different from initiated Date: [] Patient: Mauri Levine 36 y/o M admitted on 06/22/22 for n/v. Chief Complaint: [] Date of admission: 06/22/22 18:54 Discharge date: 06/25/22 Primary care physician: Flo Peña MD Attending physician on admission: Mustapha Freeman Consults: 06/22/22 Consult to Physician [CONS] Stat Comment: Consulting Provider: Mustapha Freeman Reason For Exam: Physician to Consult 06/22/22 19:05 Consult to Physician [CONS] Routine Comment: Consulting Provider: Khari Mills Reason For Exam: Physician to Consult Attending physician on discharge: Mustapha Chowdhury Puann COURSE Hospital Course Hospital course: Mr. Levine is a 36 year old M history of type 1 diabetes mellitus, chronic kidney disease stage IV, depression, presented with 3-day history of nausea vomiting and epigastric abdominal pain whenever he vomits. He was recently admitted in our facility for DKA 3 weeks ago. Over the past 3 days, he is complain of nausea, vomiting, and epigastric abdominal pain whenever he vomits. He also has decreased oral intake due to his symptoms. Labs significant for leukocytosis with WBC 12.8. H&H 11.6/35.6. VBG showing pH 7.59. bicarb 50.4, anion gap 14, blood glucose >700 with repeat of 594. Serum Cr levl 4.5, with repeat of 4.1. Urine analysis results pending. Chest x-ray negative for any acute pathologies. Admission request was called for acute chest and acute on chronic kidney injury. 06/23: [place] discussions with Dr. Mills, he thinks the patient is actually having more like a DKA than HHS, and indeed he is serum beta hydroxybutyrate was elevated. It was likely due to his marijuana THC use with induced gastroparesis. His nausea vomiting interns induced contraction alkalosis, complicating the clinical presentation. Beta hydroxybutyrate this morning 0.22, still elevated but downtrended relative to last night. Patient is currently sleeping and very drowsy. Keep patient in the ICU, continue Insulin drip @ 2unit/hr. Keep NPO status with IV fluid infusion. BMP/beta hydroxybutyrate/VBG q6hr, Accu Check q1hr. Pending diabetes education. 06/24: Beta hydroxybutyrate 0.05. Serum anion gap 12, bicarb 26, creatinine 3.0. Glucose level 181 fasting. Patient denies any more abdominal pain, nausea, or vomiting. He generally feels better today relative to yesterday. We will start transitioning from insulin drip to insulin pump today. We will have insulin drip and insulin pump over level 2 hours, after which to, will stay in occupations, we will stop the insulin pump, and will start if he does not patient with CC diet. We will also cover patients with sliding scale correctional scale insulin AC at bedtime, Accu-Chek AC at bedtime. 06/25: Reached clinical stability, decision made to discharge patient home with Rx sent to pharmacy. 2 week PCP follow up appointment made for him. All questions were answered prior to patient being physically discharged. Discharge diagnosis: DKA/HHS Time Spent with Patient Time attestation: Total time spent providing and/or coordinating discharge services: Time spent: Greater than 30 minutes EXAM Constitutional Vitals: Temp Pulse Resp BP Pulse Ox O2 Del Method O2 Flow Rate 37.4 C H 107 H 23 H 121/86 93 0 06/25/22 08:00 06/25/22 06:15 06/25/22 09:00 06/25/22 09:00 06/25/22 09:00 06/25/22 08:19 06/25/22 04:00 General appearance: cooperative and no acute distress Head Head exam: Present atraumatic and normocephalic Eye Eye exam: Present EOMI and PERRL ENT ENT exam: Present mucous membranes moist, normal exam and normal external ear exam Neck Neck exam: Present normal inspection; Absent lymphadenopathy, tenderness or thyromegaly Respiratory Respiratory exam: Absent accessory muscle use, respiratory distress or wheezes Cardiovascular Cardiovascular exam: Present normal rate and rhythm; Absent JVD GI/Abdominal GI/Abdominal exam: Present normal bowel sounds and soft; Absent organomegaly or tenderness Rectal Rectal exam: Present deferred Extremities Exam Extremities exam: Present full ROM, normal capillary refill and normal inspection; Absent tenderness Neurological Exam Neurological exam: Present alert, CN II-XII intact and oriented X3; Absent motor sensory deficit Psychiatric Psychiatric exam: Present normal affect and normal mood; Absent anxious or depressed Skin Skin exam: Present dry and intact Discharge Data Data Completed and Pending Labs on day of discharge: Labs from last 24 hours 06/25/22 06/25/22 05:36 05:00 WBC 6.6 RBC 4.15 L Hgb 10.9 L Hct 35.4 L MCV 85.3 MCH 26.3 MCHC 30.8 L RDW 15.9 H Plt Count 338 MPV 10.3 Immature Gran % (Auto) 0.3 Neut % (Auto) 56.8 Lymph % (Auto) 32.0 Delta % (Auto) 8.2 Eos % (Auto) 1.2 Baso % (Auto) 1.5 Lymph # (Auto) 2.11 Delta # (Auto) 0.54 Eos # (Auto) 0.08 Baso # (Auto) 0.10 Immature Gran # 0.02 Absolute Neutrophils 3.74 Sodium 133 Potassium 4.3 Chloride 99 Carbon Dioxide 21 L Anion Gap 13.0 BUN 25 H Creatinine 3.2 H GFR Calculation 24 Glucose 135 H Calcium 9.0 Phosphorus 2.0 L Magnesium 2.6 H Total Bilirubin 0.4 AST 16 ALT 12 Alkaline Phosphatase 132 H Total Protein 6.8 Albumin 3.8 Globulin 3.0 Albumin/Globulin Ratio 1.3 Preliminary micro results at discharge 06/22/22 10:51 Blood Culture - Preliminary Blood 06/22/22 10:26 Blood Culture - Preliminary Blood Discharge Plan Patient/Caregiver Discharge Instructions Activity: increase activity as tolerated Diet: Consistent Carbohydrate Prescriptions: New ondansetron 4 mg tablet,disintegrating 4 mg PO Q6H PRN (Reason: nausea and vomiting) Qty: 20 0RF clonidine 0.3 mg/24 hr Patch Weekly 1 patch TD Fr@1000 Qty: 4 2RF ropinirole 0.25 mg Tablet 0.5 mg PO HSP PRN (Reason: restless leg) Qty: 10 2RF diltiazem HCl 30 mg Tablet 60 mg PO Q8 Qty: 90 2RF diphenhydramine HCl [EZ Nite Sleep] 25 mg capsule 25 mg PO QHS PRN (Reason: insomnia) Qty: 30 1RF Continued insulin aspart U-100 [Novolog U-100 Insulin aspart] 100 unit/mL solution See Rx Instructions subcut TID Qty: 60 1RF Rx Instructions: subcut three times daily with meals; Moderate Dose Scale Blood Sugar (mg/dL), Units Insulin 70-130, 0 units 131-180, 4 units 181-240, 8 units 241-300, 10 units 301-350, 12 units 351-400, 16 units >400, 20 units and call MD (DME) insulin syringes (disposable) 1 mL syringe See Rx Instructions .Route Qty: 500 0RF Rx Instructions: use for insulin three times daily Baqsimi 3 mg/actuation spray,non-aerosol 3 mg intranasal ONCE PRN (Reason: hypoglycemia) Qty: 1 0RF Rx Instructions: 1 spray intranasal as needed ondansetron 4 mg tablet,disintegrating 4 mg PO Q8H Qty: 120 0RF fluoxetine 20 mg capsule 20 mg PO QDAY Qty: 90 0RF famotidine 20 mg tablet 10 mg PO BID Qty: 90 0RF sucralfate [Carafate] 1 gram tablet 1 g PO BID Qty: 70 0RF venlafaxine 75 mg capsule,extended release 24hr 225 mg PO QAM Qty: 90 5RF mirtazapine 15 mg tablet,disintegrating 15 mg PO HS Qty: 90 0RF (DME) Dexcom sensor & monitor See Rx Instructions .Route .MEDSUPPLY Qty: 1 0RF Rx Instructions: As directed promethazine [Promethegan] 25 mg suppository 25 mg NV Q6H PRN (Reason: nausea and vomiting) Qty: 12 0RF (DME) blood-glucose meter Misc See Rx Instructions .Route Qty: 1 3RF Rx Instructions: use to test blood sugar 5 times daily (DME) Blood Glucose Test Strip See Rx Instructions .ROUTE .MEDSUPPLY Qty: 500 3RF Rx Instructions: use to test blood sugar 5 times daily (DME) lancets Misc See Rx Instructions .Route Qty: 500 3RF Rx Instructions: use to test blood sugar 5 times daily (DME) Ketone Urine Test Strip See Rx Instructions .Route Qty: 100 0RF Rx Instructions: use to test urine for ketones daily Discontinued clonidine 0.2 mg/24 hr patch weekly 1 patch transdermal QWEEK Qty: 4 2RF Rx Instructions: Change on Mondays captopril 12.5 mg tablet 12.5 mg PO TID Qty: 90 11RF Rx Instructions: Skip dose if vomiting or BP < 120 mmHg Follow Up Plan Follow up with: Flo Peña MD [Primary Care Provider] - 06/25/22 ([facility]) Patient Disposition: Home, Self-Care Plan of Treatment: As above Prognosis: Fair Rehab Potential: Good I certify that the patient requires SNF services: No Overall status at discharge: patient is back to baseline Discharge Orders: Discharge Order (Routine); Ordered 06/25/22 Ordered By: Mustapha Freeman
[2022-06-25] MEDS ORDERED: cloNIDine TTS 3 1 PATCH PATCH TD SCH (10:00)
[2022-06-25] MEDS: DILTIAZEM 30 MG TABLET PO SCH ×2 (13:10→22:03)
--- NOTE | 2022-06-25 13:57 | Internal Med Progress Note ---
SUBJECTIVE Subjective Patient information: Note initiated : 06/25/22 at 1:54 pm Service Date, if different from initiated Date: [] Patient: Mauri Levine 36 y/o M admitted on 06/22/22 for n/v. Chief Complaint: [] Principal diagnosis: DKA, cyclic vomiting syndrome with THC abuse, dehydration, mixed metabolic, Interval history: Mr. Levine is a 36 year old M history of type 1 diabetes mellitus, chronic kidney disease stage IV, depression, presented with 3-day history of nausea vomiting and epigastric abdominal pain whenever he vomits. He was recently admitted in our facility for DKA 3 weeks ago. Over the past 3 days, he is complain of nausea, vomiting, and epigastric abdominal pain whenever he vomits. He also has decreased oral intake due to his symptoms. Labs significant for leukocytosis with WBC 12.8. H&H 11.6/35.6. VBG showing pH 7.59. bicarb 50.4, anion gap 14, blood glucose >700 with repeat of 594. Serum Cr levl 4.5, with repeat of 4.1. Urine analysis results pending. Chest x-ray negative for any acute pathologies. Admission request was called for acute chest and acute on chronic kidney injury. 06/23: Lena discussions with Dr. iMlls, he thinks the patient is actually having more like a DKA than HHS, and indeed he is serum beta hydroxybutyrate was elevated. It was likely due to his marijuana THC use with induced gastroparesis. His nausea vomiting interns induced contraction alkalosis, c omplicating the clinical presentation. Beta hydroxybutyrate this morning 0.22, still elevated but downtrended relative to last night. Patient is currently sleeping and very drowsy. Keep patient in the ICU, continue Insulin drip @ 2unit/hr. Keep NPO status with IV fluid infusion. BMP/beta hydroxybutyrate/VBG q6hr, Accu Check q1hr. Pending diabetes education. 06/24: Beta hydroxybutyrate 0.05. Serum anion gap 12, bicarb 26, creatinine 3.0. Glucose level 181 fasting. Patient denies any more abdominal pain, nausea, or vomiting. He generally feels better today relative to yesterday. We will start transitioning from insulin drip to insulin pump today. We will have insulin drip and insulin pump over level 2 hours, after which to, will stay in occupations, we will stop the insulin pump, and will start if he does not patient with CC diet. We will also cover patients with sliding scale c orrectional scale insulin AC at bedtime, Accu-Chek AC at bedtime. 06/25: Patient had episode of hypoglycemia followed by hyperglycemia this morning and afternoon, and patient was symptomatic with the hypoglycemia with tremors lightheadedness and diaphoresis. Will transfer patient from ICU to med surg. Continue insulin via insulin pump with insulin Lispro SSI SQ coverage. Continue antiemetics PRN nausea vomiting. Upon reaching medical stability, patient will be discharged home. Constitutional Vitals: Vital Signs Temp Pulse Resp BP Pulse Ox O2 Del Method O2 Flow Rate 36.6 C 101 H 34 H 139/84 99 0 06/25/22 12:18 06/25/22 10:15 06/25/22 12:18 06/25/22 12:18 06/25/22 12:18 06/25/22 08:19 06/25/22 04:00 Period Temp Pulse Resp BP Sys/Menard Pulse Ox O2 Del Method O2 Flow Rate Last 24 Hr 36.1 C-37.4 C 92-107 15-34 114-203/59-134 93-100 Room Air-Room Air 0-0 Intake and Output 06/25/22 06/25/22 06/25/22 03:59 11:59 19:59 Intake Total 840 680 0 Output Total 975 775 325 Balance -135 -95 -325 Weight 73.482 kg Intake & Output: Intake & Output 06/25/22 06/25/22 06/25/22 03:59 11:59 19:59 Intake Total 840 680 0 Output Total 975 775 325 Balance -135 -95 -325 Weight 73.482 kg Intake: Oral 840 680 0 Output: Void Amount 975 775 325 Other: Meal Breakfast Lunch Percent of Meal Consumed 75% 100% Feeding Ability Independent Urine Appearance Clear Clear Clear Urine Color Yellow Yellow Bright Yellow Pale Urine Odor Normal Normal # Bowel Movements 0 Exam: Lethargic Head Head exam: Present atraumatic and normal inspection Eye Eye exam: Present normal appearance ENT ENT exam: Present mucous membranes moist, normal exam and normal external ear exam Neck Neck exam: Present normal inspection Respiratory Respiratory exam: Present normal respiratory exam Cardiovascular Cardiovascular exam: Present normal rate and rhythm GI/Abdominal GI/Abdominal exam: Present normal bowel sounds Back Exam Back exam: Present normal inspection Neurological Exam Neurological exam: Present alert and oriented X3 Skin Skin exam: Present intact and warm OBJ DATA Labs CBC & Chem 7: 06/25/22 05:36 06/25/22 05:00 Labs: Abnormal Lab Results 06/25/22 06/25/22 06/24/22 05:36 05:00 05:35 WBC RBC 4.15 L Hgb 10.9 L Hct 35.4 L POC Hct MCHC 30.8 L RDW 15.9 H Lymph % (Auto) Tucker # (Auto) Immature Gran # Absolute Neutrophils ABG Methemoglobin VBG pH POC VBG pH POC VBG pCO2 at Temp VBG pO2 POC VBG pO2 VBG HCO3 POC VBG HCO3 VBG Total CO2 POC VBG Total CO2 VBG O2 Saturation POC Venous O2 Sat VBG Base Excess POC VBG Base Excess Carboxyhemoglobin Total Hemoglobin POC Potassium POC Chloride Chloride Carbon Dioxide 21 L POC Total CO2 POC BUN BUN 25 H 24 H Creatinine 3.2 H 3.0 H POC Creatinine Glucose 135 H 181 H POC Glucose Hemoglobin A1c POC WB Ioniz Calcium Phosphorus 2.0 L 2.1 L Magnesium 2.6 H 2.8 H Alkaline Phosphatase 132 H 119 H Beta-Hydroxybutyrate Urine Protein Urine Glucose (UA) Urine Ketones Urine Occult Blood 06/24/22 06/23/22 06/23/22 05:35 23:45 18:34 WBC RBC 3.94 L Hgb 10.5 L Hct 33.9 L POC Hct MCHC RDW 15.9 H Lymph % (Auto) Tucker # (Auto) 0.94 H Immature Gran # Absolute Neutrophils ABG Methemoglobin 0.3 L VBG pH 7.50 H POC VBG pH POC VBG pCO2 at Temp VBG pO2 121.2 H POC VBG pO2 VBG HCO3 31.9 H POC VBG HCO3 VBG Total CO2 33.1 H POC VBG Total CO2 VBG O2 Saturation 89.5 H POC Venous O2 Sat VBG Base Excess 8 H POC VBG Base Excess Carboxyhemoglobin 8.3 H Total Hemoglobin 11.5 L POC Potassium POC Chloride Chloride Carbon Dioxide POC Total CO2 POC BUN BUN 31 H Creatinine 3.2 H POC Creatinine Glucose 257 H POC Glucose Hemoglobin A1c POC WB Ioniz Calcium Phosphorus Magnesium Alkaline Phosphatase Beta-Hydroxybutyrate Urine Protein Urine Glucose (UA) Urine Ketones Urine Occult Blood 06/23/22 06/23/22 06/23/22 18:34 18:34 12:20 WBC RBC Hgb Hct POC Hct MCHC RDW Lymph % (Auto) Tucker # (Auto) Immature Gran # Absolute Neutrophils ABG Methemoglobin VBG pH POC VBG pH POC VBG pCO2 at Temp VBG pO2 POC VBG pO2 VBG HCO3 POC VBG HCO3 VBG Total CO2 POC VBG Total CO2 VBG O2 Saturation POC Venous O2 Sat VBG Base Excess POC VBG Base Excess Carboxyhemoglobin Total Hemoglobin POC Potassium POC Chloride Chloride Carbon Dioxide 31 H POC Total CO2 POC BUN BUN 35 H Creatinine 3.3 H POC Creatinine Glucose 199 H POC Glucose Hemoglobin A1c POC WB Ioniz Calcium Phosphorus Magnesium Alkaline Phosphatase Beta-Hydroxybutyrate 0.28 H 0.33 H Urine Protein Urine Glucose (UA) Urine Ketones Urine Occult Blood 06/23/22 06/23/22 06/23/22 12:20 05:49 05:49 WBC 14.6 H RBC 3.76 L Hgb 9.9 L Hct 31.1 L POC Hct MCHC RDW 16.0 H Lymph % (Auto) 11.3 L Tucker # (Auto) 1.54 H Immature Gran # 0.08 H Absolute Neutrophils 11.29 H ABG Methemoglobin VBG pH POC VBG pH POC VBG pCO2 at Temp VBG pO2 POC VBG pO2 VBG HCO3 POC VBG HCO3 VBG Total CO2 POC VBG Total CO2 VBG O2 Saturation POC Venous O2 Sat VBG Base Excess POC VBG Base Excess Carboxyhemoglobin Total Hemoglobin POC Potassium POC Chloride Chloride 93 L 88 L Carbon Dioxide 33 H 39 H POC Total CO2 POC BUN BUN 43 H 47 H Creatinine 3.2 H 3.7 H POC Creatinine Glucose 217 H 257 H POC Glucose Hemoglobin A1c POC WB Ioniz Calcium Phosphorus Magnesium 3.5 H Alkaline Phosphatase 134 H Beta-Hydroxybutyrate Urine Protein Urine Glucose (UA) Urine Ketones Urine Occult Blood 06/22/22 06/22/22 06/22/22 23:49 22:36 15:52 WBC RBC Hgb Hct POC Hct 33.0 L MCHC RDW Lymph % (Auto) Tucker # (Auto) Immature Gran # Absolute Neutrophils ABG Methemoglobin 0.2 L VBG pH 7.56 H POC VBG pH POC VBG pCO2 at Temp VBG pO2 132.3 H POC VBG pO2 VBG HCO3 43.6 H* POC VBG HCO3 VBG Total CO2 45.1 H* POC VBG Total CO2 VBG O2 Saturation 92.5 H POC Venous O2 Sat VBG Base Excess 19 H POC VBG Base Excess Carboxyhemoglobin 5.6 H Total Hemoglobin 11.3 L POC Potassium POC Chloride 80 L Chloride 83 L Carbon Dioxide 40 H POC Total CO2 41.0 H POC BUN 52 H BUN 58 H Creatinine 3.8 H POC Creatinine 4.1 H Glucose 399 H POC Glucose 594 H* Hemoglobin A1c POC WB Ioniz Calcium 0.81 L Phosphorus Magnesium Alkaline Phosphatase Beta-Hydroxybutyrate Urine Protein Urine Glucose (UA) Urine Ketones Urine Occult Blood 06/22/22 06/22/22 06/22/22 14:06 14:05 10:40 WBC RBC Hgb Hct POC Hct 35.0 L MCHC RDW Lymph % (Auto) Tucker # (Auto) Immature Gran # Absolute Neutrophils ABG Methemoglobin VBG pH POC VBG pH 7.59 H POC VBG pCO2 at Temp 52.7 H VBG pO2 POC VBG pO2 45 H VBG HCO3 POC VBG HCO3 50.4 H* VBG Total CO2 POC VBG Total CO2 > 50.0 H* VBG O2 Saturation POC Venous O2 Sat 86.0 H VBG Base Excess POC VBG Base Excess 29.0 H* Carboxyhemoglobin Total Hemoglobin POC Potassium 3.0 L POC Chloride 80 L Chloride Carbon Dioxide POC Total CO2 43.0 H* POC BUN 50 H BUN Creatinine POC Creatinine 4.1 H Glucose POC Glucose 491 H* Hemoglobin A1c 8.3 H POC WB Ioniz Calcium 0.81 L Phosphorus Magnesium Alkaline Phosphatase Beta-Hydroxybutyrate 3.41 H Urine Protein Urine Glucose (UA) Urine Ketones Urine Occult Blood 06/22/22 02:40 WBC RBC Hgb Hct POC Hct MCHC RDW Lymph % (Auto) Tucker # (Auto) Immature Gran # Absolute Neutrophils ABG Methemoglobin VBG pH POC VBG pH POC VBG pCO2 at Temp VBG pO2 POC VBG pO2 VBG HCO3 POC VBG HCO3 VBG Total CO2 POC VBG Total CO2 VBG O2 Saturation POC Venous O2 Sat VBG Base Excess POC VBG Base Excess Carboxyhemoglobin Total Hemoglobin POC Potassium POC Chloride Chloride Carbon Dioxide POC Total CO2 POC BUN BUN Creatinine POC Creatinine Glucose POC Glucose Hemoglobin A1c POC WB Ioniz Calcium Phosphorus Magnesium Alkaline Phosphatase Beta-Hydroxybutyrate Urine Protein 30 A Urine Glucose (UA) >=1000 A Urine Ketones 15 A Urine Occult Blood Trace-intact A Meds: Medications Albuterol/Ipratropium (Ipratropium/Albuterol 3 Ml Ampul.Neb) 3 ml NEB Q4HRT PRN PRN Reason: Wheezing Belladonna/Phenobarbital (Phenobarb/Hyoscy/Atropine/Scop 1 Dose Bottle) 1 dose PO Q6HP PRN PRN Reason: Dyspepsia Last Admin: 06/23/22 21:31 Dose: 1 dose Capsaicin (Capsaicin 0.025% Cream.Top 60gm) 1 dose TOPICAL QIDP PRN PRN Reason: Nausea And Vomiting Captopril (Captopril 12.5 Mg Tablet) 12.5 mg PO TID [facility] Last Admin: 06/25/22 08:47 Dose: 12.5 mg Clonidine HCl (Clonidine Tts 3 1 Patch Patch) 1 patch TD Fr@1000 [facility] Last Admin: 06/25/22 08:44 Dose: 1 patch Dextrose (Dextrose 50% 50 Ml Vial) 0 ml IV UD PRN PRN Reason: Per Sliding Scale Last Admin: 06/25/22 09:05 Dose: 25 ml Diagnostic Test (Pha) (Accu-Chek 1 Each Strip) 1 each FS ACHS [facility] Last Admin: 06/25/22 13:51 Dose: 1 each Diltiazem HCl (Diltiazem 30 Mg Tablet) 60 mg PO Q8 [facility] Last Admin: 06/25/22 13:10 Dose: 60 mg Diltiazem HCl (Diltiazem 25 Mg/5 Ml Vial) 10 mg IV Q6HP PRN PRN Reason: Increased Blood Pressure Docusate Sodium (Docusate Sodium 100 Mg Capsule) 100 mg PO BID [facility] Last Admin: 06/25/22 08:44 Dose: 100 mg Famotidine (Famotidine 20 Mg Tablet) 10 mg PO HS [facility] Fluoxetine HCl (Fluoxetine Hcl 20 Mg Capsule) 20 mg PO QDAY [facility] Last Admin: 06/25/22 08:44 Dose: 20 mg Glucose (Dextrose 31 Gm Oral.Susp) 15 gm PO PRN PRN PRN Reason: Hypoglycemia Haloperidol Lactate (Haloperidol Lactate 5 Mg/Ml Vial) 2 mg IV Q4HP PRN PRN Reason: Nausea And Vomiting Heparin Sodium (Porcine) (Heparin 5,000 Unit/Ml Vial) 5,000 unit SQ Q12 [facility] Last Admin: 06/25/22 08:44 Dose: 5,000 unit Insulin Human Lispro (Insulin Lispro 1 Unit/0.01 Ml Unit) 0 unit SQ ACHS [facility]; Protocol Last Admin: 06/25/22 13:08 Dose: Not Given Lorazepam (Lorazepam 2 Mg/Ml Vial) 1 mg IV Q4HP PRN PRN Reason: Nausea And Vomiting Last Admin: 06/25/22 00:15 Dose: 1 mg Mirtazapine (Mirtazapine 15 Mg Tablet) 15 mg PO HS [facility] Last Admin: 06/24/22 20:55 Dose: 15 mg Ondansetron HCl (Ondansetron 4 Mg/2 Ml Vial) 4 mg IV Q4-6HP PRN; Protocol PRN Reason: Nausea And Vomiting Last Admin: 06/25/22 09:01 Dose: 4 mg Promethazine HCl (Promethazine 25 Mg/Ml Vial) 25 mg IV Q4-6HP PRN; Protocol PRN Reason: Nausea And Vomiting Last Admin: 06/25/22 02:28 Dose: 25 mg Ropinirole HCl (Ropinirole 0.25 Mg Tablet) 0.5 mg PO HSP PRN PRN Reason: restless leg Senna (Sennosides 1 Tablet) 1 tab PO DAILY [facility] Last Admin: 06/25/22 08:44 Dose: 1 tab Sodium Chloride (0.9 % Sodium Chloride 10 Ml Syringe) 10 ml IV Q8 [facility] Last Admin: 06/25/22 13:16 Dose: 10 ml Sucralfate (Sucralfate 1 Gm Tablet) 1 gm PO BID [facility] Last Admin: 06/25/22 08:44 Dose: 1 gm Venlafaxine HCl (Venlafaxine 75 Mg Cap.Xl.24h) 225 mg PO QAM [facility] Last Admin: 06/25/22 08:44 Dose: 225 mg ABG Interpretation ABG results: 06/22/22 06/22/22 06/23/22 20:08 22:36 18:34 ABG Methemoglobin TNP 0.2 L 0.3 L VBG pH TNP 7.56 H 7.50 H VBG pCO2 TNP 49.5 41.8 VBG pO2 TNP 132.3 H 121.2 H VBG HCO3 TNP 43.6 H* 31.9 H VBG Total CO2 TNP 45.1 H* 33.1 H VBG O2 Saturation TNP 92.5 H 89.5 H VBG Base Excess TNP 19 H 8 H A/P Assessment and plan (1) Renal failure (ARF), acute on chronic: Status: Acute Comment: Established pattern on N/V dehydration and AFR. Underlying T2DM with nephropathy. Losing addition nephron mass with each cycle of dehydration and pre renal insult to someone who already has decrease nephron mass from diabetes. (2) Acid-base disorder, mixed: Status: Acute Comment: Hypochloremic (chloride sensitive) metabolic alkalosis from gastic acid loss and a volume contraction related metabolic alkalosis, respiratory alkalosis. Hidden in this is an Anion Gap metabolic acidosis due to DKA (3) Type 1 diabetes mellitus with hyperosmolar hyperglycemic state (HHS): Status: Acute (4) GERD (gastroesophageal reflux disease): Status: Chronic Qualifiers: Esophagitis presence: esophagitis presence not specified Qualified Code(s): K21.9 - Gastro-esophageal reflux disease without esophagitis (5) Depression: Status: Acute (6) Anemia associated with stage 4 chronic renal failure: Status: Acute (7) Gastroparesis: Status: Acute Narrative A/P Narrative: Assessment and Plans: 1. Hyperosmolar hyperglycemic state associated with type 1 diabetes mellitus, clinical picture overlapping with DKA, complicated by contraction alkalosis due to gastroparesis: Inpatient ICU with telemetry HgA1c 8.3 Beta hydroxybutyrate level normalized, start transitioning from insulin pump to SQ insulin with insulin pump, with 2 hours overlap. After which, will d/c insulin pump and saline lock. Will start feeding patient with CC diet. Insulin Lispro SSI AC HS Accu Check AC HS Hypoglycemia protocol Diabetes education referral Zofran Phenergan Ativan Haldol Capsaicin 2. 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 appreciated d/c long acting Diltiazem, switch to Diltiazem immediate release 60mg PO TID, d/c Captopril, add Clonidine TT3 qFriday upon discharge Saline lock Serial chemistry to trend kidney functions, see above 3. Anemia associated with chronic kidney disease IV: cbc w/ auto diff in the morning to trend H/H 4. GERD: Pepcid 5. Depression: Fluoxetine Mirtazapine Venlafaxine GI ppx: Pepcid DVT ppx: Heparin Code status: Full Prognosis: Guarded Disposition: inpatient med surg Plan of Treatment: Prescriptions: New ondansetron 4 mg tablet,disintegrating 4 mg PO Q6H PRN (Reason: nausea and vomiting) Qty: 20 0RF clonidine 0.3 mg/24 hr Patch Weekly 1 patch TD Fr@1000 Qty: 4 2RF ropinirole 0.25 mg Tablet 0.5 mg PO HSP PRN (Reason: restless leg) Qty: 10 2RF diltiazem HCl 30 mg Tablet 60 mg PO Q8 Qty: 90 2RF diphenhydramine HCl [EZ Nite Sleep] 25 mg capsule 25 mg PO QHS PRN (Reason: insomnia) Qty: 30 1RF Continued insulin aspart U-100 [Novolog U-100 Insulin aspart] 100 unit/mL solution See Rx Instructions subcut TID Qty: 60 1RF Rx Instructions: subcut three times daily with meals; Moderate Dose Scale Blood Sugar (mg/dL), Units Insulin 70-130, 0 units 131-180, 4 units 181-240, 8 units 241-300, 10 units 301-350, 12 units 351-400, 16 units >400, 20 units and call MD (ZEKE) insulin syringes (disposable) 1 mL syringe See Rx Instructions .Route Qty: 500 0RF Rx Instructions: use for insulin three times daily Baqsimi 3 mg/actuation spray,non-aerosol 3 mg intranasal ONCE PRN (Reason: hypoglycemia) Qty: 1 0RF Rx Instructions: 1 spray intranasal as needed ondansetron 4 mg tablet,disintegrating 4 mg PO Q8H Qty: 120 0RF fluoxetine 20 mg capsule 20 mg PO QDAY Qty: 90 0RF famotidine 20 mg tablet 10 mg PO BID Qty: 90 0RF sucralfate [Carafate] 1 gram tablet 1 g PO BID Qty: 70 0RF venlafaxine 75 mg capsule,extended release 24hr 225 mg PO QAM Qty: 90 5RF mirtazapine 15 mg tablet,disintegrating 15 mg PO HS Qty: 90 0RF (DME) Dexcom sensor & monitor See Rx Instructions .Route .MEDSUPPLY Qty: 1 0RF Rx Instructions: As directed promethazine [Promethegan] 25 mg suppository 25 mg MA Q6H PRN (Reason: nausea and vomiting) Qty: 12 0RF (DME) blood-glucose meter Misc See Rx Instructions .Route Qty: 1 3RF Rx Instructions: use to test blood sugar 5 times daily (DME) Blood Glucose Test Strip See Rx Instructions .ROUTE .MEDSUPPLY Qty: 500 3RF Rx Instructions: use to test blood sugar 5 times daily (DME) lancets Misc See Rx Instructions .Route Qty: 500 3RF Rx Instructions: use to test blood sugar 5 times daily (DME) Ketone Urine Test Strip See Rx Instructions .Route Qty: 100 0RF Rx Instructions: use to test urine for ketones daily Discontinued clonidine 0.2 mg/24 hr patch weekly 1 patch transdermal QWEEK Qty: 4 2RF Rx Instructions: Change on Mondays captopril 12.5 mg tablet 12.5 mg PO TID Qty: 90 11RF Rx Instructions: Skip dose if vomiting or BP < 120 mmHg Time Spent With Patient Time: Total time spent is greater than 50% in coordination of care (as documented) at patient's floor/unit and/or counseling patient:
[2022-06-25] MEDS ORDERED: INSULIN LISPRO 1 UNIT/0.01 ML UNIT SQ ONE (14:10)
[2022-06-25] MEDS: PHENobarb/HYOSCY/ATROPINE/SCOP 1 DOSE BOTTLE PO PRN (16:55)
[2022-06-25] MEDS ORDERED: diphenhydrAMINE 25 MG CAPSULE PO PRN (20:09)
[2022-06-25] MEDS ORDERED: FAMOTIDINE 20 MG TABLET PO SCH (21:00)
[2022-06-25] MEDS: MIRTAZAPINE 15 MG TABLET PO SCH (21:13)
[2022-06-26] MEDS: PROMETHAZINE 25 MG/ML VIAL IV PRN (04:11)
[2022-06-26] MEDS: DILTIAZEM 30 MG TABLET PO SCH (05:17)
[2022-06-26] MEDS: 0.9 % SODIUM CHLORIDE 10 ML SYRINGE IV SCH (05:41)
[2022-06-26 06:39] LABS: Basophils # (Auto) 0.07 K/mcL (0.00-0.30); Basophils % (Auto) 1.1 % (0.0-2.0); Eosinophils # (Auto) 0.15 K/mcL (0.00-0.70); Eosinophils % (Auto) 2.3 % (0.0-7.0); Hematocrit 34.9 % (40.1-51.0); Hemoglobin 10.8 g/dL (13.7-17.5); Lymphocytes # (Auto) 1.93 K/mcL (1.50-4.80); Lymphocytes % (Auto) 29.6 % (15.5-49.0); Mean Cell Volume 84.9 fL (80.0-100.0); Mean Corpuscular HGB Conc 30.9 g/dL (31.0-36.0); Mean Platelet Volume 10.8 fL (8.8-12.5); Monocytes # (Auto) 0.51 K/mcL (0.10-0.90); Monocytes % (Auto) 7.8 % (1.0-12.0); Neutrophils % (Auto) 58.7 % (38.0-78.0); Platelet Count 335 K/mcL (140-440); RBC 4.11 M/mcL (4.63-6.08); Red Cell Distribution Width 15.9 % (11.5-14.5); WBC 6.5 K/mcL (4.5-11.0)
[2022-06-26 07:11] LABS: ALT/SGPT 12 U/L (<40); AST/SGOT 13 U/L (<40); Albumin 3.9 gm/dL (3.2-5.2); Albumin/Globulin Ratio 1.3 (1.0-2.3); Alkaline Phosphatase 128 U/L (39-117); Bilirubin,Total 0.3 mg/dL (0.1-1.0); Blood Urea Nitrogen 37 mg/dL (6-20); Carbon Dioxide 22 mmol/L (22-30); Chloride 96 mmol/L (96-108); Globulin 3.1 gm/dL (2.2-3.7); Glomerular Filtration Rate 21; Glucose 100 mg/dL (70-105); Phosphorous 2.9 mg/dL (2.5-4.5)
[2022-06-26] MEDS: INSULIN LISPRO 1 UNIT/0.01 ML UNIT SQ SCH (07:24)
--- NOTE | 2022-06-26 07:26 | Discharge Summary ---
Discharge Provider Provider IMPORTANT FOLLOW-UP INFORMATION FOR PCP: Patient information: Note initiated : 06/26/22 at 7:24 am Service Date, if different from initiated Date: [] Patient: Mauri Levine 36 y/o M admitted on 06/22/22 for n/v. Chief Complaint: [] Date of admission: 06/22/22 18:54 Discharge date: 06/26/22 Primary care physician: Flo Peña MD Attending physician on admission: Mustapha Freeman Consults: 06/22/22 Consult to Physician [CONS] Stat Comment: Consulting Provider: Mustapha Freeman Reason For Exam: Physician to Consult 06/22/22 19:05 Consult to Physician [CONS] Routine Comment: Consulting Provider: Khari Mills Reason For Exam: Physician to Consult Attending physician on discharge: Mustapha Chowdhury Puann COURSE Hospital Course Hospital course: Mr. Levine is a 36 year old M history of type 1 diabetes mellitus, chronic kidney disease stage IV, depression, presented with 3-day history of nausea vomiting and epigastric abdominal pain whenever he vomits. He was recently admitted in our facility for DKA 3 weeks ago. Over the past 3 days, he is complain of nausea, vomiting, and epigastric abdominal pain whenever he vomits. He also has decreased oral intake due to his symptoms. Labs significant for leukocytosis with WBC 12.8. H&H 11.6/35.6. VBG showing pH 7.59. bicarb 50.4, anion gap 14, blood glucose >700 with repeat of 594. Serum Cr levl 4.5, with repeat of 4.1. Urine analysis results pending. Chest x-ray negative for any acute pathologies. Admission request was called for acute chest and acute on chronic kidney injury. 06/23: K[place] discussions with Dr. Mills, he thinks the patient is actually having more like a DKA than HHS, and indeed he is serum beta hydroxybutyrate was elevated. It was likely due to his marijuana THC use with induced gastroparesis. His nausea vomiting interns induced contraction alkalosis, complicating the clinical presentation. Beta hydroxybutyrate this morning 0.22, still elevated but downtrended relative to last night. Patient is currently sleeping and very drowsy. Keep patient in the ICU, continue Insulin drip @ 2unit/hr. Keep NPO status with IV fluid infusion. BMP/beta hydroxybutyrate/VBG q6hr, Accu Check q1hr. Pending diabetes education. 06/24: Beta hydroxybutyrate 0.05. Serum anion gap 12, bicarb 26, creatinine 3.0. Glucose level 181 fasting. Patient denies any more abdominal pain, nausea, or vomiting. He generally feels better today relative to yesterday. We will start transitioning from insulin drip to insulin pump today. We will have insulin drip and insulin pump over level 2 hours, after which to, will stay in occupations, we will stop the insulin pump, and will start if he does not patient with CC diet. We will also cover patients with sliding scale correctional scale insulin AC at bedtime, Accu-Chek AC at bedtime. 06/25: Patient had episode of hypoglycemia followed by hyperglycemia this morning and afternoon, and patient was symptomatic with the hypoglycemia with tremors lightheadedness and diaphoresis. Will transfer patient from ICU to med surg. Continue insulin via insulin pump with insulin Lispro SSI SQ coverage. Continue antiemetics PRN nausea vomiting. Upon reaching medical stability, patient will be discharged home. 06/26: Discharged home. Discharge diagnosis: HHS/DKA associated with type 1 diabetes mellitus Time Spent with Patient Time attestation: Total time spent providing and/or coordinating discharge services: Time spent: Less than 30 minutes EXAM Constitutional Vitals: Temp Pulse Resp BP Pulse Ox O2 Del Method O2 Flow Rate 36.4 C 92 H 16 155/98 99 0 06/26/22 03:33 06/26/22 03:33 06/26/22 03:33 06/26/22 03:33 06/26/22 03:33 06/26/22 03:33 06/26/22 03:33 General appearance: cooperative and no acute distress Head Head exam: Present atraumatic and normocephalic Eye Eye exam: Present EOMI and PERRL ENT ENT exam: Present mucous membranes moist, normal exam and normal external ear exam Neck Neck exam: Present normal inspection; Absent lymphadenopathy, tenderness or thyromegaly Respiratory Respiratory exam: Absent accessory muscle use, respiratory distress or wheezes Cardiovascular Cardiovascular exam: Present normal rate and rhythm; Absent JVD GI/Abdominal GI/Abdominal exam: Present normal bowel sounds and soft; Absent organomegaly or tenderness Rectal Rectal exam: Present deferred Extremities Exam Extremities exam: Present full ROM, normal capillary refill and normal inspection; Absent tenderness Neurological Exam Neurological exam: Present alert, CN II-XII intact and oriented X3; Absent motor sensory deficit Psychiatric Psychiatric exam: Present normal affect and normal mood; Absent anxious or depressed Skin Skin exam: Present dry and intact Discharge Data Data Completed and Pending Labs on day of discharge: Labs from last 24 hours 06/26/22 06/26/22 06/25/22 05:05 05:05 05:36 WBC 6.5 6.6 RBC 4.11 L 4.15 L Hgb 10.8 L 10.9 L Hct 34.9 L 35.4 L MCV 84.9 85.3 MCH 26.3 26.3 MCHC 30.9 L 30.8 L RDW 15.9 H 15.9 H Plt Count 335 338 MPV 10.8 10.3 Immature Gran % (Auto) 0.5 0.3 Neut % (Auto) 58.7 56.8 Lymph % (Auto) 29.6 32.0 Jack % (Auto) 7.8 8.2 Eos % (Auto) 2.3 1.2 Baso % (Auto) 1.1 1.5 Lymph # (Auto) 1.93 2.11 Jack # (Auto) 0.51 0.54 Eos # (Auto) 0.15 0.08 Baso # (Auto) 0.07 0.10 Immature Gran # 0.03 0.02 Absolute Neutrophils 3.83 3.74 Sodium 131 L Potassium 4.6 Chloride 96 Carbon Dioxide 22 Anion Gap 13.0 BUN 37 H Creatinine 3.6 H GFR Calculation 21 Glucose 100 Calcium 9.0 Phosphorus 2.9 Magnesium 2.8 H Total Bilirubin 0.3 AST 13 ALT 12 Alkaline Phosphatase 128 H Total Protein 7.0 Albumin 3.9 Globulin 3.1 Albumin/Globulin Ratio 1.3 06/25/22 05:00 WBC RBC Hgb Hct MCV MCH MCHC RDW Plt Count MPV Immature Gran % (Auto) Neut % (Auto) Lymph % (Auto) Jack % (Auto) Eos % (Auto) Baso % (Auto) Lymph # (Auto) Jack # (Auto) Eos # (Auto) Baso # (Auto) Immature Gran # Absolute Neutrophils Sodium 133 Potassium 4.3 Chloride 99 Carbon Dioxide 21 L Anion Gap 13.0 BUN 25 H Creatinine 3.2 H GFR Calculation 24 Glucose 135 H Calcium 9.0 Phosphorus 2.0 L Magnesium 2.6 H Total Bilirubin 0.4 AST 16 ALT 12 Alkaline Phosphatase 132 H Total Protein 6.8 Albumin 3.8 Globulin 3.0 Albumin/Globulin Ratio 1.3 Preliminary micro results at discharge 06/22/22 10:51 Blood Culture - Preliminary Blood 06/22/22 10:26 Blood Culture - Preliminary Blood Discharge Plan Patient/Caregiver Discharge Instructions Activity: increase activity as tolerated Diet: Consistent Carbohydrate Instructions: Diltiazem (By mouth), Clonidine (By mouth), Diphenhydramine (By mouth), Ondansetron (By mouth), Ropinirole (By mouth), Diabetic Ketoacidosis (GEN) Activity Restrictions/Additional Instructions: Increase activity as tolerated, continue with a consistent carbohydrate diet. Follow up with your Primary Care Physician as scheduled. Take all of your medications as prescribed. Your prescriptions have been electronically sent to [facility]. This discharge packet is provided to you to help keep you informed about your care. We want to ensure you get everything you need when you go home. You will also be receiving a call from us in a few days to follow up with you and see how you are doing since your discharge. This gives us a chance to listen to any concerns you maybe experiencing since you were discharged or any additional needs you may have, as well as providing us feedback on your care experience. We strive to always provide excellent care and thank you for your feedback and for choosing [facility]. Prescriptions: New ondansetron 4 mg tablet,disintegrating 4 mg PO Q6H PRN (Reason: nausea and vomiting) Qty: 20 0RF clonidine 0.3 mg/24 hr Patch Weekly 1 patch TD Fr@1000 Qty: 4 2RF ropinirole 0.25 mg Tablet 0.5 mg PO HSP PRN (Reason: restless leg) Qty: 10 2RF diltiazem HCl 30 mg Tablet 60 mg PO Q8 Qty: 90 2RF diphenhydramine HCl [EZ Nite Sleep] 25 mg capsule 25 mg PO QHS PRN (Reason: insomnia) Qty: 30 1RF Continued (DME) insulin syringes (disposable) 1 mL syringe See Rx Instructions .Route Qty: 500 0RF Rx Instructions: use for insulin three times daily Baqsimi 3 mg/actuation spray,non-aerosol 3 mg intranasal ONCE PRN (Reason: hypoglycemia) Qty: 1 0RF Rx Instructions: 1 spray intranasal as needed ondansetron 4 mg tablet,disintegrating 4 mg PO Q8H Qty: 120 0RF fluoxetine 20 mg capsule 20 mg PO QDAY Qty: 90 0RF famotidine 20 mg tablet 10 mg PO BID Qty: 90 0RF sucralfate [Carafate] 1 gram tablet 1 g PO BID Qty: 70 0RF venlafaxine 75 mg capsule,extended release 24hr 225 mg PO QAM Qty: 90 5RF mirtazapine 15 mg tablet,disintegrating 15 mg PO HS Qty: 90 0RF (DME) Dexcom sensor & monitor See Rx Instructions .Route .MEDSUPPLY Qty: 1 0RF Rx Instructions: As directed promethazine [Promethegan] 25 mg suppository 25 mg HI Q6H PRN (Reason: nausea and vomiting) Qty: 12 0RF (DME) blood-glucose meter Misc See Rx Instructions .Route Qty: 1 3RF Rx Instructions: use to test blood sugar 5 times daily (DME) Blood Glucose Test Strip See Rx Instructions .ROUTE .MEDSUPPLY Qty: 500 3RF Rx Instructions: use to test blood sugar 5 times daily (DME) lancets Misc See Rx Instructions .Route Qty: 500 3RF Rx Instructions: use to test blood sugar 5 times daily (DME) Ketone Urine Test Strip See Rx Instructions .Route Qty: 100 0RF Rx Instructions: use to test urine for ketones daily insulin aspart U-100 [Novolog U-100 Insulin aspart] 100 unit/mL solution See Rx Instructions subcut TID Qty: 60 1RF Rx Instructions: subcut three times daily with meals; Moderate Dose Scale Blood Sugar (mg/dL), Units Insulin 70-130, 0 units 131-180, 4 units 181-240, 8 units 241-300, 10 units 301-350, 12 units 351-400, 16 units >400, 20 units and call MD Discontinued clonidine 0.2 mg/24 hr patch weekly 1 patch transdermal QWEEK Qty: 4 2RF Rx Instructions: Change on Mondays captopril 12.5 mg tablet 12.5 mg PO TID Qty: 90 11RF Rx Instructions: Skip dose if vomiting or BP < 120 mmHg Follow Up Plan Follow up with: Flo Peña MD [Primary Care Provider] - 06/30/22 3:00 pm (Please arrive 15 minutes early) Patient Disposition: Home, Self-Care Plan of Treatment: Prescriptions: New ondansetron 4 mg tablet,disintegrating 4 mg PO Q6H PRN (Reason: nausea and vomiting) Qty: 20 0RF clonidine 0.3 mg/24 hr Patch Weekly 1 patch TD Fr@1000 Qty: 4 2RF ropinirole 0.25 mg Tablet 0.5 mg PO HSP PRN (Reason: restless leg) Qty: 10 2RF diltiazem HCl 30 mg Tablet 60 mg PO Q8 Qty: 90 2RF diphenhydramine HCl [EZ Nite Sleep] 25 mg capsule 25 mg PO QHS PRN (Reason: insomnia) Qty: 30 1RF Continued insulin aspart U-100 [Novolog U-100 Insulin aspart] 100 unit/mL solution See Rx Instructions subcut TID Qty: 60 1RF Rx Instructions: subcut three times daily with meals; Moderate Dose Scale Blood Sugar (mg/dL), Units Insulin 70-130, 0 units 131-180, 4 units 181-240, 8 units 241-300, 10 units 301-350, 12 units 351-400, 16 units >400, 20 units and call MD (DME) insulin syringes (disposable) 1 mL syringe See Rx Instructions .Route Qty: 500 0RF Rx Instructions: use for insulin three times daily Baqsimi 3 mg/actuation spray,non-aerosol 3 mg intranasal ONCE PRN (Reason: hypoglycemia) Qty: 1 0RF Rx Instructions: 1 spray intranasal as needed ondansetron 4 mg tablet,disintegrating 4 mg PO Q8H Qty: 120 0RF fluoxetine 20 mg capsule 20 mg PO QDAY Qty: 90 0RF famotidine 20 mg tablet 10 mg PO BID Qty: 90 0RF sucralfate [Carafate] 1 gram tablet 1 g PO BID Qty: 70 0RF venlafaxine 75 mg capsule,extended release 24hr 225 mg PO QAM Qty: 90 5RF mirtazapine 15 mg tablet,disintegrating 15 mg PO HS Qty: 90 0RF (DME) Dexcom sensor & monitor See Rx Instructions .Route .MEDSUPPLY Qty: 1 0RF Rx Instructions: As directed promethazine [Promethegan] 25 mg suppository 25 mg HI Q6H PRN (Reason: nausea and vomiting) Qty: 12 0RF (DME) blood-glucose meter Misc See Rx Instructions .Route Qty: 1 3RF Rx Instructions: use to test blood sugar 5 times daily (DME) Blood Glucose Test Strip See Rx Instructions .ROUTE .MEDSUPPLY Qty: 500 3RF Rx Instructions: use to test blood sugar 5 times daily (DME) lancets Misc See Rx Instructions .Route Qty: 500 3RF Rx Instructions: use to test blood sugar 5 times daily (DME) Ketone Urine Test Strip See Rx Instructions .Route Qty: 100 0RF Rx Instructions: use to test urine for ketones daily Discontinued clonidine 0.2 mg/24 hr patch weekly 1 patch transdermal QWEEK Qty: 4 2RF Rx Instructions: Change on Mondays captopril 12.5 mg tablet 12.5 mg PO TID Qty: 90 11RF Rx Instructions: Skip dose if vomiting or BP < 120 mmHg Prognosis: Fair Rehab Potential: Good I certify that the patient requires SNF services: No Overall status at discharge: patient is back to baseline Discharge Orders: Discharge Order (Routine); Ordered 06/26/22 Ordered By: Mustapha Freeman
[2022-06-26] MEDS ORDERED: HEPARIN SODIUM,PORCINE/PF 500 UNIT/5 ML SYRINGE IV ONE (08:18)
[2022-06-26] MEDS: VENLAFAXINE 75 MG CAP.XL.24H PO SCH (08:25)
[2022-06-26] MEDS: HEPARIN 5,000 UNIT/ML VIAL SQ SCH (08:25)
[2022-06-26] MEDS: DOCUSATE SODIUM 100 MG CAPSULE PO SCH (08:25)
[2022-06-26] MEDS: SENNOSIDES 1 TABLET PO SCH (08:26)
[2022-06-26] MEDS: FLUoxetine HCL 20 MG CAPSULE PO SCH (08:26)
[2022-06-26] MEDS: SUCRALFATE 1 GM TABLET PO SCH (08:26)
[2022-06-26] MEDS: CAPTOPRIL 12.5 MG TABLET PO SCH (08:26)
[2022-06-30] MEDS ORDERED: cloNIDine TTS 2 1 PATCH PATCH TD SCH (09:00)
== END 2022-06-26 09:05 | disposition home or self-care (01) | DRG 682 ==
LOC: ED 09:53 → ICU 18:54
PROVIDERS: ADMIT Internal Medicine; ATTEND Internal Medicine

== ENCOUNTER 2022-07-23 09:58 | Inpatient (IN) ==
--- NOTE | 2022-07-23 10:02 | Emergency Department Note ---
HPI General Chief complaint: Blood Sugar Problem Stated complaint: Gastroparesis Time Seen by Provider: 07/23/22 10:00 Mode of arrival: EMS History of Present Illness HPI Narrative: Narrative: Patient is a 36-year-old male with a complex history who presents to the emergency department due to nausea and vomiting. Patient states that he began to have abdominal pain, nausea, and vomiting on Tuesday, approximately 3 days ago. He states that during that period of time he has not really been able to eat or drink anything. He states that all of his symptoms have been worsening during that period of time. He states that his pain is sharp, in the epigastric region, and without radiation. He states that it worsens with vomiting. He denies any other palliative or provocative factors. He states that his antinausea medication has not been working. He states that yesterday he began to notice some darkening of his vomit, and states that he has seen black-colored vomitus since then. He does endorse some lightheadedness. He denies any other symptoms at this time. Related Data Home Medications Medication Instructions Recorded Confirmed carvedilol 6.25 mg tablet 1 tab PO BID 07/24/22 07/24/22 famotidine 20 mg tablet 20 mg PO BID 07/24/22 07/24/22 Previous Rx's Medication Instructions Recorded e-Go aeroplanes sensor & monitor #1 ea 08/27/21 acetone (urine) test (Ketone Urine #100 ea 09/10/21 Test strips) blood sugar diagnostic (Blood #500 ea 09/10/21 Glucose Test strips) blood-glucose meter #1 ea 09/10/21 lancets #500 ea 09/10/21 insulin syringes (disposable) 1 mL #500 ea 01/12/22 promethazine 25 mg rectal 25 mg GA Q6H PRN nausea and 04/09/22 suppository (Promethegan) vomiting #12 ea glucagon 3 mg/actuation nasal 3 mg intranasal ONCE PRN 04/20/22 spray (Baqsimi) hypoglycemia #1 ea fluoxetine 20 mg capsule 20 mg PO QDAY #90 caps 05/04/22 sucralfate 1 gram tablet (Carafate) 1 g PO BID #70 tabs 05/28/22 mirtazapine 15 mg disintegrating 15 mg PO HS #90 tabs 11/22/22 tablet venlafaxine 75 mg capsule,extended 225 mg PO QAM #90 caps 06/08/22 release 24 hr clonidine 0.3 mg/24 hr weekly 1 patch TD Fr@1000 #4 ea 06/25/22 transdermal patch diltiazem HCl 30 mg tablet 60 mg PO Q8 #90 tabs 06/25/22 diphenhydramine HCl 25 mg capsule 25 mg PO QHS PRN insomnia #30 caps 06/25/22 (EZ Nite Sleep) ropinirole 0.25 mg tablet 0.5 mg PO HSP PRN restless leg #10 06/25/22 tabs insulin aspart U-100 100 unit/mL See Rx Instructions subcut TID #60 06/26/22 subcutaneous solution (Novolog mL U-100 Insulin aspart) ondansetron 4 mg disintegrating 4 mg PO Q8H cyclic vomiting #120 07/20/22 tablet tabs Allergies Allergy/AdvReac Type Severity Reaction Status Date / Time NSAIDS (Non-Steroidal Allergy Unknown Unknown Verified 07/23/22 10:09 Anti-Inflamma metoclopramide [From Reglan] AdvReac Mild Agitated Verified 07/23/22 10:09 prochlorperazine AdvReac Mild "My whole Verified 07/23/22 10:09 [From Compazine] body freaks out." silver AdvReac Mild dystonic Verified 07/23/22 10:09 IV iodine contrast Allergy Unknown Unknown Uncoded 07/24/22 05:39 Review of Systems ROS ROS Narrative: Narrative: Constitutional: Denies fever or weakness Eyes: Denies eye pain or vision change ENT ED: Denies throat pain or rhinorrhea Cardiovascular: Denies chest pain or edema Respiratory: Denies shortness of breath or cough Gastrointestinal: Reports abdominal pain, nausea and vomiting; Denies diarrhea, constipation, hematochezia or melena Genitourinary: Denies dysuria or frequency Musculoskeletal: Denies back pain or myalgia Integumentary: Denies rash or lesions Neurological: Denies headache, weakness, numbness, confusion, abnormal gait or dizziness Endocrine: Denies fatigue or polyuria PFS Narrative Patient History Narrative: Narrative: Medical/Surgical/Family History All Active Problems (Updated 07/24/22 @ 08:02 by Ab Mittal MD) Testosterone deficiency (Chronic) Nausea and vomiting (Chronic) GERD (gastroesophageal reflux disease) (Chronic) Other hammer toe(s) (acquired), left foot (Chronic) Hypertension, essential (Chronic) Hyperlipidemia (Chronic) History of neuroleptic malignant syndrome (Chronic) Dehydration (Chronic) Drug-induced nausea and vomiting (Acute) Uncontrolled type 1 diabetes mellitus with diabetic nephropathy, with long-term current use of insulin (Chronic) Cyclic vomiting syndrome (Chronic) Type 1 diabetes mellitus with stage 3 chronic kidney disease and hypertension (Chronic) Marijuana use, continuous (Chronic) CKD (chronic kidney disease) (Acute) Nephrotic range proteinuria (Chronic) Controlled type 1 diabetes mellitus with chronic kidney disease (Chronic) Port-A-Cath in place (Acute) Diabetic gastroparesis associated with type 1 diabetes mellitus (Chronic) Diabetic neuropathy associated with type 1 diabetes mellitus (Chronic) Diabetic retinopathy associated with type 1 diabetes mellitus (Chronic) Anxiety (Chronic) Back pain (Chronic) Physical deconditioning (Chronic) Malnutrition (Chronic) Acute dehydration (Acute) Acute hypokalemia (Acute) QT prolongation (Acute) Dehydration (Acute) No-show for appointment (Acute) Intractable cyclical vomiting with nausea (Acute) Diabetic gastroparesis (Chronic) ROSALIO (acute kidney injury) (Acute) Hyperglycemia (Acute) Dehydration (Acute) Major depressive disorder, recurrent (Chronic) Generalized anxiety disorder (Chronic) Trauma and stressor-related disorder (Chronic) Diabetic gastroparesis (Acute) Nausea & vomiting (Acute) Acute dehydration (Acute) Ketosis (Acute) Uncontrolled diabetes mellitus (Acute) DKA (diabetic ketoacidosis) (Acute) Hyperosmolar hyperglycemic state (HHS) (Acute) Diabetic gastroparesis (Acute) Metabolic alkalosis (Acute) Stage 2 acute kidney injury (Acute) Hyponatremia (Acute) DKA (diabetic ketoacidosis) (Acute) Has multiple sexual partners (Acute) Hyperosmolar hyperglycemic state (HHS) (Acute) Acute hypokalemia (Acute) ROSALIO (acute kidney injury) (Acute) Nausea & vomiting (Acute) Hypochloremia (Acute) Alkalosis (Acute) Acute renal failure superimposed on stage 3a chronic kidney disease (Acute) Metabolic alkalosis (Acute) Altered mental status (Acute) Depression (Acute) Acute hyperglycemia (Acute) Nausea & vomiting (Acute) Seizures (Acute) Abnormal CT of brain (Acute) Sepsis (Acute) Hyponatremia (Acute) Pneumonia (Acute) Acute renal failure (Acute) Hypokalemia (Acute) Diabetic gastroparesis (Acute) Diabetic gastroparesis (Acute) CKD stage G3b/A3, GFR 30-44 and albumin creatinine ratio >300 mg/g (Acute) Renal failure (ARF), acute on chronic (Acute) ROSALIO (acute kidney injury) (Acute) Acute hypokalemia (Acute) Acidosis (Acute) Acid-base disorder, mixed (Acute) Acute worsening of stage 4 chronic kidney disease (Acute) Type 1 diabetes mellitus with hyperosmolar hyperglycemic state (HHS) (Acute) Acute hypokalemia (Acute) Nausea & vomiting (Acute) Acute respiratory failure with hypoxia (Acute) Type 1 diabetes mellitus with hyperosmolar hyperglycemic state (HHS) (Acute) Anemia associated with stage 4 chronic renal failure (Acute) DKA, type 1, not at goal (Acute) Metabolic acidosis with respiratory alkalosis (Acute) Gastroparesis (Acute) Tetrahydrocannabinol (THC) use disorder, moderate, dependence (Chronic) Binge eating disorder (Chronic) CKD stage 4 due to type 1 diabetes mellitus (Acute) Diabetic keto-acidosis (Acute) Medical History Abdominal pain, epigastric Abnormal CT of brain Altered mental status Anxiety Back pain Chronic ulcer of left foot Coffee ground emesis Depression Diabetes mellitus type I Age 12, With foot ulcer Diabetic gastroparesis associated with type 1 diabetes mellitus Diabetic neuropathy associated with type 1 diabetes mellitus Diabetic peripheral neuropathy Diabetic retinopathy associated with type 1 diabetes mellitus DKA, type 1 Esophageal candidiasis Gastroenteritis Gastroparesis due to DM GERD (gastroesophageal reflux disease) Hallux valgus (acquired), left foot Has multiple sexual partners History of neuroleptic malignant syndrome To compazine (prochlorperazine). Tolerates promethazine without issue Hyperlipidemia Hypertension, essential labile due to unpredictable Rx absorption with gastroparesis and propensity for dehydration Hold captopril if persistent vomiting occurs or bp less than 120/80 stop coreg and nifedipine Continue clonidine patch#1 Labetalol IV PRN Hypokalemia Connie-Byrne tear Malnutrition Marijuana use, continuous Nausea and vomiting Non-pressure chronic ulcer of other part of left foot limited to breakdown of skin Other hammer toe(s) (acquired), left foot Peripheral autonomic neuropathy due to DM Physical deconditioning Seizures Sepsis Tardive dyskinesia due to metoclopramide (Reglan) Testosterone deficiency Surgical History History of hand surgery Finger repair History of toe surgery left hallux Family History Mother Atrial fibrillation Essential hypertension Sister Malignant neoplasm of female breast Maternal Grandfather Malignant neoplasm of colon Recorded 11/12/10 Father Essential hypertension Other Adopted DKA, type 1 Social History Smoking Status: Never smoker Alcohol Intake Frequency: former alcohol drinker Substance Use: former substance user Exam Narrative Narrative: Narrative: General General appearance: Present alert and in no apparent distress; Absent anxious, appears intoxicated or sleepy Head Head: Present atraumatic and normocephalic Eye Eye: Present EOMI; Absent scleral icterus or nystagmus ENT ENT: Present mucous membranes moist; Absent nasal congestion Neck Neck: Present full ROM; Absent tenderness Chest Chest: Present normal inspection and symmetric chest wall rise; Absent tenderness Respiratory Respiratory: Present normal lung sounds bilaterally; Absent respiratory distress or accessory muscle use Cardiovascular Cardiovascular: Present regular rate, normal rhythm and normal heart sounds Adbominal Abdominal: Present soft, tenderness, guarding and normal bowel sounds; Absent distention, rebound or rigidity Extremities Extremities: Present normal inspection and full ROM Back Back: Present normal inspection and full ROM Neurological Neurological: Present alert and oriented X3 Psychiatric Psychiatric: Present normal affect and normal mood Skin Skin: Present warm (WNL), dry and normal color Course Vital Signs Vital signs: Vital Signs Pulse Rate 87 07/23/22 10:26 Blood Pressure 126/76 07/23/22 10:26 Pulse Oximetry (%) 100 07/23/22 10:26 Temperature 99.6 F H 07/24/22 04:01 Pulse Rate 82 07/24/22 06:01 Respiratory Rate 20 07/24/22 06:01 Blood Pressure 122/60 07/24/22 06:01 Pulse Oximetry (%) 100 07/24/22 06:01 Oxygen Delivery Method 07/24/22 06:01 Oxygen Flow Rate (L/min) 2 07/24/22 06:01 [facility] MDM Narrative Medical decision making narrative: Narrative: Patient is a 36-year-old male with a complex history who presents to the emergency department due to nausea and vomiting. Patient previously has not been compliant with his medication regimen, and this continues to be a concern. Given his abdominal pain, tenderness, and guarding there is concern for potenti al intra-abdominal pathology. Differential diagnoses include pancreatitis, he is already known gastroparesis, pathology, gastritis, and peptic ulcer disease. Patient's labs are concerning for a very elevated glucose of 1300, elevated anion gap, elevated hydroxybutyrate. CT scan is reassuring overall. I have spoken to Dr. Basilio about this patient and he is requested that I speak to patient's room manager prior to admission and to discuss potential need for transfer. I again spoke to patient and he denies having an room manager. I again spoke to Dr. Basilio and he has agreed to see and evaluate patient for admission. Lab Data Result diagrams: 07/24/22 05:16 07/24/22 05:16 Labs: Lab Results 07/23/22 07/23/22 07/23/22 Range/Units 10:20 10:20 11:01 WBC 12.4 H (4.5-11.0) K/mcL RBC 3.85 L (4.63-6.08) M/mcL Hgb 10.3 L (13.7-17.5) g/dL Hct 31.9 L (40.1-51.0) % POC Hct (41-55) MCV 82.9 (80.0-100.0) fL MCH 26.8 (26.0-34.0) pg MCHC 32.3 (31.0-36.0) g/dL RDW 15.3 H (11.5-14.5) % Plt Count 342 (140-440) K/mcL MPV 11.6 (8.8-12.5) fL Immature Gran % (Auto) 0.4 (0.0-0.5) % Neut % (Auto) 82.5 H (38.0-78.0) % Lymph % (Auto) 5.2 L (15.5-49.0) % Bartholomew % (Auto) 11.7 (1.0-12.0) % Eos % (Auto) 0 (0.0-7.0) % Baso % (Auto) 0.2 (0.0-2.0) % Lymph # (Auto) 0.65 L (1.50-4.80) K/mcL Bartholomew # (Auto) 1.45 H (0.10-0.90) K/mcL Eos # (Auto) 0 (0.00-0.70) K/mcL Baso # (Auto) 0.03 (0.00-0.30) K/mcL Immature Gran # 0.05 (0.00-0.05) K/mcl Absolute Neutrophils 10.24 H (1.80-8.00) K/mcL POC Sodium (133-145) Sodium 121 L (133-145) mmol/L POC Potassium (3.3-5.1) Potassium 3.3 (3.3-5.1) mmol/L POC Chloride (96-108) Chloride < 60 L (96-108) mmol/L Carbon Dioxide 39 H (22-30) mmol/L POC Total CO2 (22-30) Anion Gap 22.0 H (8.0-16.0) POC BUN (6-20) BUN 101 H* (6-20) mg/dL Creatinine 5.9 H* (0.7-1.2) mg/dL POC Creatinine (0.6-1.2) GFR Calculation 11 Glucose 1309 H* (70-105) mg/dL POC Glucose (70-105) Osmolality (280-300) mOSM/kg Calcium 7.0 L (8.6-10.4) mg/dL POC WB Ioniz Calcium (1.16-1.32) Phosphorus (2.5-4.5) mg/dL Magnesium (1.6-2.5) mg/dL Total Bilirubin 0.2 (0.1-1.0) mg/dL Direct Bilirubin < 0.2 (0-0.3) mg/dL AST 10 (<40) U/L ALT 10 (<40) U/L Alkaline Phosphatase 165 H (39-117) U/L Total Protein 6.9 (5.9-8.4) gm/dL Albumin 4.0 (3.2-5.2) gm/dL Globulin 2.9 (2.2-3.7) gm/dL Lipase 192 H (7-60) U/L Beta-Hydroxybutyrate (<0.27) mmol/L Urine Color Urine Appearance (Clear) Urine pH (5.0-9.0) Ur Specific [place] (1.000-1.035) Urine Protein (Negative) mg/dL Urine Glucose (UA) (Negative) mg/dL Urine Ketones (Negative) mg/dL Urine Occult Blood (Negative) mg/dL Urine Nitrate (Negative) Urine Bilirubin (Negative) mg/dL Urine Urobilinogen mg/dL Ur Leukocyte Esterase (Negative) /uL Urine RBC (0-3) /hpf Urine WBC (0-4) /hpf Ur Squamous Epith Cells (0-4) /hpf Urine Bacteria (0) /hpf Ur Culture Indicated? Urine Opiates Screen Ur Opiates Confirm Ur Oxycodone Screen U Oxycod/Oxymor Confirm Urine Methadone Screen Ur Methadone Confirm Ur Barbiturates Screen Ur Barbiturate Confirm Ur Phencyclidine Scrn Urine PCP Confirm Ur Amphetamines Screen U Amphetamines Confirm U Benzodiazepines Scrn Ur Benzodiazepine, Qnt Urine Cocaine Screen Urine Cocaine Confirm U Cannabinoids Confirm U Marijuana (THC) Screen 07/23/22 07/23/22 07/23/22 Range/Units 11:04 11:04 18:50 WBC (4.5-11.0) K/mcL RBC (4.63-6.08) M/mcL Hgb (13.7-17.5) g/dL Hct (40.1-51.0) % POC Hct (41-55) MCV (80.0-100.0) fL MCH (26.0-34.0) pg MCHC (31.0-36.0) g/dL RDW (11.5-14.5) % Plt Count (140-440) K/mcL MPV (8.8-12.5) fL Immature Gran % (Auto) (0.0-0.5) % Neut % (Auto) (38.0-78.0) % Lymph % (Auto) (15.5-49.0) % Bartholomew % (Auto) (1.0-12.0) % Eos % (Auto) (0.0-7.0) % Baso % (Auto) (0.0-2.0) % Lymph # (Auto) (1.50-4.80) K/mcL Bartholomew # (Auto) (0.10-0.90) K/mcL Eos # (Auto) (0.00-0.70) K/mcL Baso # (Auto) (0.00-0.30) K/mcL Immature Gran # (0.00-0.05) K/mcl Absolute Neutrophils (1.80-8.00) K/mcL POC Sodium (133-145) Sodium (133-145) mmol/L POC Potassium (3.3-5.1) Potassium (3.3-5.1) mmol/L POC Chloride (96-108) Chloride (96-108) mmol/L Carbon Dioxide (22-30) mmol/L POC Total CO2 (22-30) Anion Gap (8.0-16.0) POC BUN (6-20) BUN (6-20) mg/dL Creatinine (0.7-1.2) mg/dL POC Creatinine (0.6-1.2) GFR Calculation Glucose (70-105) mg/dL POC Glucose (70-105) Osmolality 381 H (280-300) mOSM/kg Calcium (8.6-10.4) mg/dL POC WB Ioniz Calcium (1.16-1.32) Phosphorus (2.5-4.5) mg/dL Magnesium (1.6-2.5) mg/dL Total Bilirubin (0.1-1.0) mg/dL Direct Bilirubin (0-0.3) mg/dL AST (<40) U/L ALT (<40) U/L Alkaline Phosphatase (39-117) U/L Total Protein (5.9-8.4) gm/dL Albumin (3.2-5.2) gm/dL Globulin (2.2-3.7) gm/dL Lipase (7-60) U/L Beta-Hydroxybutyrate 9.80 H (<0.27) mmol/L Urine Color Colorless Urine Appearance Clear (Clear) Urine pH 9.0 (5.0-9.0) Ur Specific [place] 1.012 (1.000-1.035) Urine Protein 100 A (Negative) mg/dL Urine Glucose (UA) >=500 A (Negative) mg/dL Urine Ketones 20 A (Negative) mg/dL Urine Occult Blood 0.03 (Negative) mg/dL Urine Nitrate Negative (Negative) Urine Bilirubin Negative (Negative) mg/dL Urine Urobilinogen Negative mg/dL Ur Leukocyte Esterase Negative (Negative) /uL Urine RBC < 1 (0-3) /hpf Urine WBC 1 (0-4) /hpf Ur Squamous Epith Cells 0 (0-4) /hpf Urine Bacteria None (0) /hpf Ur Culture Indicated? No Urine Opiates Screen Ur Opiates Confirm Ur Oxycodone Screen U Oxycod/Oxymor Confirm Urine Methadone Screen Ur Methadone Confirm Ur Barbiturates Screen Ur Barbiturate Confirm Ur Phencyclidine Scrn Urine PCP Confirm Ur Amphetamines Screen U Amphetamines Confirm U Benzodiazepines Scrn Ur Benzodiazepine, Qnt Urine Cocaine Screen Urine Cocaine Confirm U Cannabinoids Confirm U Marijuana (THC) Screen 07/23/22 07/23/22 07/23/22 Range/Units 18:50 21:05 21:05 WBC (4.5-11.0) K/mcL RBC (4.63-6.08) M/mcL Hgb (13.7-17.5) g/dL Hct (40.1-51.0) % POC Hct (41-55) MCV (80.0-100.0) fL MCH (26.0-34.0) pg MCHC (31.0-36.0) g/dL RDW (11.5-14.5) % Plt Count (140-440) K/mcL MPV (8.8-12.5) fL Immature Gran % (Auto) (0.0-0.5) % Neut % (Auto) (38.0-78.0) % Lymph % (Auto) (15.5-49.0) % Bartholomew % (Auto) (1.0-12.0) % Eos % (Auto) (0.0-7.0) % Baso % (Auto) (0.0-2.0) % Lymph # (Auto) (1.50-4.80) K/mcL Bartholomew # (Auto) (0.10-0.90) K/mcL Eos # (Auto) (0.00-0.70) K/mcL Baso # (Auto) (0.00-0.30) K/mcL Immature Gran # (0.00-0.05) K/mcl Absolute Neutrophils (1.80-8.00) K/mcL POC Sodium (133-145) Sodium 135 (133-145) mmol/L POC Potassium (3.3-5.1) Potassium 2.8 L* (3.3-5.1) mmol/L POC Chloride (96-108) Chloride 73 L (96-108) mmol/L Carbon Dioxide 36 H (22-30) mmol/L POC Total CO2 (22-30) Anion Gap 26.0 H (8.0-16.0) POC BUN (6-20) BUN 87 H (6-20) mg/dL Creatinine 5.2 H* (0.7-1.2) mg/dL POC Creatinine (0.6-1.2) GFR Calculation 13 Glucose 690 H* (70-105) mg/dL POC Glucose (70-105) Osmolality (280-300) mOSM/kg Calcium 7.3 L (8.6-10.4) mg/dL POC WB Ioniz Calcium (1.16-1.32) Phosphorus 4.3 4.2 (2.5-4.5) mg/dL Magnesium 4.2 H* (1.6-2.5) mg/dL Total Bilirubin (0.1-1.0) mg/dL Direct Bilirubin (0-0.3) mg/dL AST (<40) U/L ALT (<40) U/L Alkaline Phosphatase (39-117) U/L Total Protein (5.9-8.4) gm/dL Albumin 3.7 (3.2-5.2) gm/dL Globulin (2.2-3.7) gm/dL Lipase (7-60) U/L Beta-Hydroxybutyrate 8.41 H (<0.27) mmol/L Urine Color Urine Appearance (Clear) Urine pH (5.0-9.0) Ur Specific [place] (1.000-1.035) Urine Protein (Negative) mg/dL Urine Glucose (UA) (Negative) mg/dL Urine Ketones (Negative) mg/dL Urine Occult Blood (Negative) mg/dL Urine Nitrate (Negative) Urine Bilirubin (Negative) mg/dL Urine Urobilinogen mg/dL Ur Leukocyte Esterase (Negative) /uL Urine RBC (0-3) /hpf Urine WBC (0-4) /hpf Ur Squamous Epith Cells (0-4) /hpf Urine Bacteria (0) /hpf Ur Culture Indicated? Urine Opiates Screen None detected Ur Opiates Confirm TNP Ur Oxycodone Screen None detected U Oxycod/Oxymor Confirm TNP Urine Methadone Screen None detected Ur Methadone Confirm TNP Ur Barbiturates Screen None detected Ur Barbiturate Confirm TNP Ur Phencyclidine Scrn None detected Urine PCP Confirm TNP Ur Amphetamines Screen None detected U Amphetamines Confirm TNP U Benzodiazepines Scrn None detected Ur Benzodiazepine, Qnt TNP Urine Cocaine Screen None detected Urine Cocaine Confirm TNP U Cannabinoids Confirm TNP U Marijuana (THC) Screen None detected 07/23/22 Range/Units 21:53 WBC (4.5-11.0) K/mcL RBC (4.63-6.08) M/mcL Hgb (13.7-17.5) g/dL Hct (40.1-51.0) % POC Hct 34.0 L (41-55) MCV (80.0-100.0) fL MCH (26.0-34.0) pg MCHC (31.0-36.0) g/dL RDW (11.5-14.5) % Plt Count (140-440) K/mcL MPV (8.8-12.5) fL Immature Gran % (Auto) (0.0-0.5) % Neut % (Auto) (38.0-78.0) % Lymph % (Auto) (15.5-49.0) % Bartholomew % (Auto) (1.0-12.0) % Eos % (Auto) (0.0-7.0) % Baso % (Auto) (0.0-2.0) % Lymph # (Auto) (1.50-4.80) K/mcL Bartholomew # (Auto) (0.10-0.90) K/mcL Eos # (Auto) (0.00-0.70) K/mcL Baso # (Auto) (0.00-0.30) K/mcL Immature Gran # (0.00-0.05) K/mcl Absolute Neutrophils (1.80-8.00) K/mcL POC Sodium 132 L (133-145) Sodium (133-145) mmol/L POC Potassium 2.8 L* (3.3-5.1) Potassium (3.3-5.1) mmol/L POC Chloride 78 L (96-108) Chloride (96-108) mmol/L Carbon Dioxide (22-30) mmol/L POC Total CO2 36.0 H (22-30) Anion Gap (8.0-16.0) POC BUN 70 H (6-20) BUN (6-20) mg/dL Creatinine (0.7-1.2) mg/dL POC Creatinine 6.2 H* (0.6-1.2) GFR Calculation Glucose (70-105) mg/dL POC Glucose > 700 H* (70-105) Osmolality (280-300) mOSM/kg Calcium (8.6-10.4) mg/dL POC WB Ioniz Calcium 0.75 L (1.16-1.32) Phosphorus (2.5-4.5) mg/dL Magnesium (1.6-2.5) mg/dL Total Bilirubin (0.1-1.0) mg/dL Direct Bilirubin (0-0.3) mg/dL AST (<40) U/L ALT (<40) U/L Alkaline Phosphatase (39-117) U/L Total Protein (5.9-8.4) gm/dL Albumin (3.2-5.2) gm/dL Globulin (2.2-3.7) gm/dL Lipase (7-60) U/L Beta-Hydroxybutyrate (<0.27) mmol/L Urine Color Urine Appearance (Clear) Urine pH (5.0-9.0) Ur Specific [place] (1.000-1.035) Urine Protein (Negative) mg/dL Urine Glucose (UA) (Negative) mg/dL Urine Ketones (Negative) mg/dL Urine Occult Blood (Negative) mg/dL Urine Nitrate (Negative) Urine Bilirubin (Negative) mg/dL Urine Urobilinogen mg/dL Ur Leukocyte Esterase (Negative) /uL Urine RBC (0-3) /hpf Urine WBC (0-4) /hpf Ur Squamous Epith Cells (0-4) /hpf Urine Bacteria (0) /hpf Ur Culture Indicated? Urine Opiates Screen Ur Opiates Confirm Ur Oxycodone Screen U Oxycod/Oxymor Confirm Urine Methadone Screen Ur Methadone Confirm Ur Barbiturates Screen Ur Barbiturate Confirm Ur Phencyclidine Scrn Urine PCP Confirm Ur Amphetamines Screen U Amphetamines Confirm U Benzodiazepines Scrn Ur Benzodiazepine, Qnt Urine Cocaine Screen Urine Cocaine Confirm U Cannabinoids Confirm U Marijuana (THC) Screen Discharge Plan Patient/Caregiver Discharge Instructions Pt seen by SUSTAINABILITY PROJECT COORDINATOR/PA only: No Clinical Impression: Diabetic keto-acidosis Patient Disposition: Xfer As Inpt ([facility]) Discharge Date/Time: 07/23/22 22:28
[2022-07-23] MEDS ORDERED: ONDANSETRON 4 MG/2 ML VIAL IV ONE ×2 (10:14→21:36)
[2022-07-23 11:00] LABS: Basophils # (Auto) 0.03 K/mcL (0.00-0.30); Basophils % (Auto) 0.2 % (0.0-2.0); Eosinophils # (Auto) 0 K/mcL (0.00-0.70); Eosinophils % (Auto) 0 % (0.0-7.0); Hematocrit 31.9 % (40.1-51.0); Hemoglobin 10.3 g/dL (13.7-17.5); Lymphocytes # (Auto) 0.65 K/mcL (1.50-4.80); Lymphocytes % (Auto) 5.2 % (15.5-49.0); Mean Cell Volume 82.9 fL (80.0-100.0); Mean Corpuscular HGB Conc 32.3 g/dL (31.0-36.0); Mean Platelet Volume 11.6 fL (8.8-12.5); Monocytes # (Auto) 1.45 K/mcL (0.10-0.90); Monocytes % (Auto) 11.7 % (1.0-12.0); Neutrophils % (Auto) 82.5 % (38.0-78.0); Platelet Count 342 K/mcL (140-440); RBC 3.85 M/mcL (4.63-6.08); Red Cell Distribution Width 15.3 % (11.5-14.5); WBC 12.4 K/mcL (4.5-11.0)
[2022-07-23 11:30] LABS: ALT/SGPT 10 U/L (<40); AST/SGOT 10 U/L (<40); Alkaline Phosphatase 165 U/L (39-117); Bilirubin,Direct < 0.2 mg/dL (0-0.3); Bilirubin,Total 0.2 mg/dL (0.1-1.0); Globulin 2.9 gm/dL (2.2-3.7)
[2022-07-23] MEDS ORDERED: INSULIN REGULAR, HUMAN 1 UNIT/0.01 ML UNIT IV ONE (11:54)
[2022-07-23] MEDS ORDERED: LACTATED RINGERS 1,000 ML IV ONE (11:54)
[2022-07-23] MEDS ORDERED: 0.9 % SODIUM CHLORIDE 1,000 ML IV ONE (12:03)
--- NOTE | 2022-07-23 12:09 | Cat Scan Report ---
CLINICAL INFORMATION: Epigastric pain COMPARISON: Abdomen and pelvic CT 12/24/2018 TECHNIQUE: 0.625 mm helical slices were obtained from the mid heart through the subtrochanteric regions. Following reconstruction, 2.5 mm sagittal, coronal and axial reformatted images were processed and reviewed at bone and soft tissue windows.The exam was performed using radiation dose optimization techniques including, but not limited to, automated exposure control, adjustment of the mA and/or kV according to patient size and use of iterative reconstruction technique. FINDINGS: The lung bases are clear. No effusions. The visualized heart is grossly normal. Abdominal images three stones and the gallbladder neck-all approximately 5 mm. The gallbladder is, otherwise, normal-no wall thickening or other signs of cholecystitis. Intrahepatic and common bile ducts are normal caliber: CBD is 5 mm. Noncontrasted liver, adrenal glands, spleen, pancreas and aorta are normal in size, configuration and attenuation without focal lesion. There is no free air, free fluid or adenopathy. Both noncontrasted kidneys are normal and symmetric in size, position, configuration and attenuation: The right is 10 cm in length and the left is also 10 cm in length. There is mild right hydronephrosis/hydroureter to the level of the iliac crossing in the false pelvis. The distal ureter is decompressed. This may be physiologic compression by the iliac crossing or, less likely, there may be a mild stricture in this region. The left upper collecting system and ureter are normal. There are no stones identified. Pelvic images show moderate distention of urinary bladder. The prostate and seminal vesicles are normal. The stomach, small bowel, large bowel, and inferior pericecal appendix are all normal. Gastric stimulator is in place with electrodes overlying the anterior distal gastric body with lead wires descending in the left anterior mesenteric cavity to traverse the intra-abdominal wall in the left mid abdomen. The battery pack is seen in Camper's fascia. No combination. Bone windows show no osseous abnormality. IMPRESSION: 1. Cholelithiasis. 2. Mild right hydroureter/hydronephrosis to the level of the iliac crossing. While this is likely physiologic, there may be a mild stricture in the distal ureter. Urinary bladder is moderately distended which may be physiologic or pathologic. 3. Gastric stimulator in satisfactory position without complication. Interpreted and Authenticated by: Demetrius Smart 07/23/22
[2022-07-23 12:42] LABS: Blood Urea Nitrogen 101 mg/dL (6-20); Carbon Dioxide 39 mmol/L (22-30); Chloride < 60 mmol/L (96-108); Glomerular Filtration Rate 11; Glucose 1309 mg/dL (70-105)
[2022-07-23] MEDS: INSULIN REGULAR, HUMAN 50 UNIT in 0.9 % SODIUM CHLORIDE 99.5 ML IV SCH (13:23)
--- NOTE | 2022-07-23 14:49 | Nephrology Consult Note ---
HPI Date of Consult Consult Date: 07/23/22 Requesting physician: Alok Cullen Primary Care Provider: Flo Peña MD Consult Narrative Patient Information: Note initiated : 07/23/22 at 2:35 pm Service Date, if different from initiated Date: [] Patient: Mauri Levine 36 y/o M admitted on for Gastroparesis. Chief Complaint: [N/V] Chief complaint: N/V/DKA cc:: One of multiple admissions for this adopted 36 yr old male with T1DM complicated by diabetic nephropathy with frequent episodes of repeated prerenal azotemia +/- with progressive decline in GFR. While he has a gastric pacemeker and carries the Dx of Diabetic gastorparesis, this has NOT PREVENTED episode after episode of nausea and vomiting leading to DKA and dehydration with ARF on CKD and need for 3-4 day stays to correct volume status, pre-renal azotemia and electrolyte abnormalities. Given the finding of NORMAL GASTRIC EMPTYING TIMES x 2 at [facility] and on delayed GET at [facility], and the fact that his tox screen is ALWAYS POSITIVE for THC which he states he takes for treatment of nausea...I FAVOR THE ALTERNATIVE DIAGNOSIS CANNAIBIS HYPEREMESIS SYNDROME as the horta precipitating event leading to his frequent hospitalizations and told the patient that in no uncertain terms. The interested reader is directed to any of my prior clinic notes or hospital consults. Recs: q1 hr glucose checks q 6 hr RFP, Beta (OH) Buterate NS at 250 cc hr until glucose < 400, then switch to D51/2 NS with KCl Supplement PO4 when needed with IV KPO4 Keep insulin drip going and titrate but DO NOT STOP UNTIL Ketones are negative in serum UDS workers compensation consultant to suggest/arrange placement in care facility near sister in [place], [place] as the plan here with his adoptive mother is clearly NOT WORKING....If nothing changes for this patient, he will be on dialysis soon and a none compliant, T!DM has a life expectancy measures in months. Social issues abound along with his self-destructive behavior despite the fact he has state of the art CGM and glucose pump equipment and the gastrict pacemeker. To keep along the current path fulfills [facility]'s definition of insanity. 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 PFSH PFSH All Active Problems (Updated 07/23/22 @ 19:55 by Khari Mills MD) CKD stage 4 due to type 1 diabetes mellitus (Acute) Binge eating disorder (Chronic) Tetrahydrocannabinol (THC) use disorder, moderate, dependence (Chronic) Gastroparesis (Acute) Intractable cyclical vomiting with nausea (Acute) Renal failure (ARF), acute on chronic (Acute) Nausea & vomiting (Acute) Acid-base disorder, mixed (Acute) DKA, type 1, not at goal (Acute) Metabolic acidosis with respiratory alkalosis (Acute) Acute worsening of stage 4 chronic kidney disease (Acute) Type 1 diabetes mellitus with hyperosmolar hyperglycemic state (HHS) (Acute) Acute hypokalemia (Acute) Acute respiratory failure with hypoxia (Acute) Type 1 diabetes mellitus with hyperosmolar hyperglycemic state (HHS) (Acute) Anemia associated with stage 4 chronic renal failure (Acute) Acidosis (Acute) ROSALIO (acute kidney injury) (Acute) Acute hypokalemia (Acute) CKD stage G3b/A3, GFR 30-44 and albumin creatinine ratio >300 mg/g (Acute) Controlled type 1 diabetes mellitus with chronic kidney disease (Chronic) Hypertension, essential (Chronic) Nephrotic range proteinuria (Chronic) Nausea and vomiting (Chronic) Diabetic neuropathy associated with type 1 diabetes mellitus (Chronic) Diabetic gastroparesis (Acute) Diabetic gastroparesis (Chronic) ROSALIO (acute kidney injury) (Acute) Hyperglycemia (Acute) Dehydration (Acute) Major depressive disorder, recurrent (Chronic) Generalized anxiety disorder (Chronic) Trauma and stressor-related disorder (Chronic) Diabetic gastroparesis (Acute) Nausea & vomiting (Acute) Acute dehydration (Acute) Ketosis (Acute) Uncontrolled diabetes mellitus (Acute) DKA (diabetic ketoacidosis) (Acute) Hyperosmolar hyperglycemic state (HHS) (Acute) Diabetic gastroparesis (Acute) Metabolic alkalosis (Acute) Stage 2 acute kidney injury (Acute) Hyponatremia (Acute) DKA (diabetic ketoacidosis) (Acute) Has multiple sexual partners (Acute) Hyperosmolar hyperglycemic state (HHS) (Acute) Acute hypokalemia (Acute) ROSALIO (acute kidney injury) (Acute) Nausea & vomiting (Acute) Hypochloremia (Acute) Alkalosis (Acute) Acute renal failure superimposed on stage 3a chronic kidney disease (Acute) Metabolic alkalosis (Acute) Altered mental status (Acute) Depression (Acute) Acute hyperglycemia (Acute) Nausea & vomiting (Acute) Seizures (Acute) Abnormal CT of brain (Acute) Sepsis (Acute) Hyponatremia (Acute) Pneumonia (Acute) Acute renal failure (Acute) Hypokalemia (Acute) Diabetic gastroparesis (Acute) No-show for appointment (Acute) Port-A-Cath in place (Acute) Diabetic gastroparesis associated with type 1 diabetes mellitus (Chronic) Diabetic retinopathy associated with type 1 diabetes mellitus (Chronic) Anxiety (Chronic) Back pain (Chronic) Physical deconditioning (Chronic) Malnutrition (Chronic) Acute dehydration (Acute) Acute hypokalemia (Acute) QT prolongation (Acute) Dehydration (Acute) Testosterone deficiency (Chronic) GERD (gastroesophageal reflux disease) (Chronic) Other hammer toe(s) (acquired), left foot (Chronic) Hyperlipidemia (Chronic) History of neuroleptic malignant syndrome (Chronic) Dehydration (Chronic) Drug-induced nausea and vomiting (Acute) Cyclic vomiting syndrome (Chronic) Type 1 diabetes mellitus with stage 3 chronic kidney disease and hypertension (Chronic) Marijuana use, continuous (Chronic) CKD (chronic kidney disease) (Acute) Uncontrolled type 1 diabetes mellitus with diabetic nephropathy, with long-term current use of insulin (Chronic) Medical History Abdominal pain, epigastric Abnormal CT of brain Altered mental status Anxiety Back pain Chronic ulcer of left foot Coffee ground emesis Depression Diabetes mellitus type I Age 12, With foot ulcer Diabetic gastroparesis associated with type 1 diabetes mellitus Diabetic neuropathy associated with type 1 diabetes mellitus Diabetic peripheral neuropathy Diabetic retinopathy associated with type 1 diabetes mellitus DKA, type 1 Esophageal candidiasis Gastroenteritis Gastroparesis due to DM GERD (gastroesophageal reflux disease) Hallux valgus (acquired), left foot Has multiple sexual partners History of neuroleptic malignant syndrome To compazine (prochlorperazine). Tolerates promethazine without issue Hyperlipidemia Hypertension, essential labile due to unpredictable Rx absorption with gastroparesis and propensity for dehydration Hold captopril if persistent vomiting occurs or bp less than 120/80 stop coreg and nifedipine Continue clonidine patch#1 Labetalol IV PRN Hypokalemia Connie-Byrne tear Malnutrition Marijuana use, continuous Nausea and vomiting Non-pressure chronic ulcer of other part of left foot limited to breakdown of skin Other hammer toe(s) (acquired), left foot Peripheral autonomic neuropathy due to DM Physical deconditioning Seizures Sepsis Tardive dyskinesia due to metoclopramide (Reglan) Testosterone deficiency Surgical History History of hand surgery Finger repair History of toe surgery left hallux Family History Mother Atrial fibrillation Essential hypertension Sister Malignant neoplasm of female breast Maternal Grandfather Malignant neoplasm of colon Recorded 11/12/10 Father Essential hypertension Other Adopted DKA, type 1 Social History adopted: Yes household members: family housing: other details: 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 marital status: single occupational status: disabled occupation: On disability since 2016 physical activity: walking smoking status: Never smoker alcohol intake frequency: former alcohol drinker substance use type: former substance user seatbelt use: always MEDS/ALLERGIES Home Medications and Allergies Home Medications Medication Instructions Recorded Confirmed Type Dexcom sensor & monitor #1 ea 08/27/21 06/29/22 Rx acetone (urine) test (Ketone Urine #100 ea 09/10/21 06/29/22 Rx Test strips) blood sugar diagnostic (Blood #500 ea 09/10/21 06/29/22 Rx Glucose Test strips) blood-glucose meter #1 ea 09/10/21 06/29/22 Rx lancets #500 ea 09/10/21 06/29/22 Rx insulin syringes (disposable) 1 mL #500 ea 01/12/22 06/29/22 Rx promethazine 25 mg rectal 25 mg AZ Q6H PRN nausea and 04/09/22 06/29/22 Rx suppository (Promethegan) vomiting #12 ea glucagon 3 mg/actuation nasal 3 mg intranasal ONCE PRN 04/20/22 06/29/22 Rx spray (Baqsimi) hypoglycemia #1 ea fluoxetine 20 mg capsule 20 mg PO QDAY #90 caps 05/04/22 06/29/22 Rx famotidine 20 mg tablet 10 mg PO BID #90 tabs 05/12/22 06/29/22 Rx sucralfate 1 gram tablet (Carafate) 1 g PO BID #70 tabs 11/11/22 12/13/22 Rx mirtazapine 15 mg disintegrating 15 mg PO HS #90 tabs 06/08/22 06/29/22 Rx tablet venlafaxine 75 mg capsule,extended 225 mg PO QAM #90 caps 06/08/22 06/29/22 Rx release 24 hr ondansetron 4 mg disintegrating 4 mg PO Q6H PRN nausea and 06/22/22 06/29/22 Rx tablet vomiting #20 tabs clonidine 0.3 mg/24 hr weekly 1 patch TD Fr@1000 #4 ea 06/25/22 06/29/22 Rx transdermal patch diltiazem HCl 30 mg tablet 60 mg PO Q8 #90 tabs 06/25/22 06/29/22 Rx diphenhydramine HCl 25 mg capsule 25 mg PO QHS PRN insomnia #30 caps 06/25/22 06/29/22 Rx (EZ Nite Sleep) ropinirole 0.25 mg tablet 0.5 mg PO HSP PRN restless leg #10 06/25/22 06/29/22 Rx tabs insulin aspart U-100 100 unit/mL See Rx Instructions subcut TID #60 06/26/22 06/29/22 Rx subcutaneous solution (Novolog mL U-100 Insulin aspart) ondansetron 4 mg disintegrating 4 mg PO Q8H cyclic vomiting #120 07/20/22 Rx tablet tabs Allergies Allergy/AdvReac Type Severity Reaction Status Date / Time NSAIDS (Non-Steroidal Allergy Unknown Unknown Verified 07/23/22 10:09 Anti-Inflamma metoclopramide [From Reglan] AdvReac Mild Agitated Verified 07/23/22 10:09 prochlorperazine AdvReac Mild "My whole Verified 07/23/22 10:09 [From Compazine] body freaks out." silver AdvReac Mild dystonic Verified 07/23/22 10:09 IV iodine contrast Allergy Unknown Unknown Uncoded 05/25/22 10:33 Physical Examination Vital Signs Vital signs: Pulse BP Pulse Ox 91 H 173/89 96 07/23/22 13:31 07/23/22 13:31 07/23/22 13:31 General Appearance General appearance: frail Exam Narrative: Eyes closed and ignoring me...responds to noxious stimuli and the nurse / manager of case EENT EENT: ATNC and mucous membranes dry Neck Neck: no JVD Respiratory Respiratory: clear Cardiovascular Cardiology: no rub, normal S1 and normal S2 Gastrointestinal Gastrointestinal: hypoactive bowel sounds and no tenderness Integumentary Integumentary: no rash Neurologic Neurologic: no focal deficit Musculoskeletal Musculoskeletal: no deformities Psychiatric Psychiatric: cooperative (uncooperative) Additional Exam Additional exam: nontoxic Results Lab Results Result Diagrams: 07/23/22 10:20 07/23/22 11:01 Lab results: Most recent lab results Calcium 7.0 mg/dL (8.6-10.4) L 07/23/22 11:01 A/P Assessment and plan (1) Renal failure (ARF), acute on chronic: Status: Acute Comment: Established pattern on N/V dehydration and AFR. Underlying T2DM with nephropathy. Losing additional nephron mass with each cycle of dehydration and pre renal insult to someone who already has decreased nephron mass from diabetes. (2) Acid-base disorder, mixed: Status: Acute Comment: Hypochloremic (chloride sensitive) metabolic alkalosis from gastic acid loss and a volume contraction related metabolic alkalosis, respiratory alkalosis. Hidden in this is an Anion Gap metabolic acidosis due to DKA (3) Uncontrolled type 1 diabetes mellitus with diabetic nephropathy, with long- term current use of insulin: Status: Chronic Comment: Hyperfiltration in 2017 with GFR 115 cc/min and proteinuria 2019 he now has a reduced GFR <30 cc/min with normal appearing kidneys Renal ultrasound in 2019 shows normal size but mildly echogenic kidneys (4) DKA (diabetic ketoacidosis): Status: Acute Comment: Horta to this is nausea and vomiting which I believe is cyclic vomiting from THC use/abuse. Once he gets ECF volume contracted, DKA quickly follows. The hypochloremic metabolic acidosis and the contraction alkalosis with low serum K comes first and demonstrates the clear causative role of vomiting/ECF before glucose dysregulation. My opinion, stop THC use and the problem will be solved Narrative Plan of Treatment: q1 hr glucose checks q 6 hr RFP, and q12 hr Beta (OH) Buterate NS at 250 cc hr until glucose < 400, then switch to D51/2 NS with KCl Supplement PO4 when needed with IV KPO4 Keep insulin drip going and titrate but DO NOT STOP UNTIL Ketones are negative in serum UDS workers compensation consultant to suggest/arrange placement in care facility near sister in [place], [place] as the plan here with his adoptive mother is clearly NOT WORKING....If nothing changes for this patient, he will be on dialysis soon and a none compliant, T!DM has a life expectancy measures in months. Social issues abound along with his self-destructive behavior despite the fact he has state of the art CGM and glucose pump equipment and the gastrict pacemeker. To keep along the current path fulfills [facility]'s definition of insanity. Time Spent With Patient Time: Total time spent is greater than 50% in coordination of care (as documented) at patient's floor/unit and/or counseling patient: Total time spent with greater than 50% in coordination of care (as documented) at patient's floor/unit and/or counseling patient:: 50 - 70 minutes
[2022-07-23] MEDS: NACL 0.9% W/KCL 20MEQ 1,000 ML IV SCH ×2 (15:33→23:30)
--- NOTE | 2022-07-23 17:49 | Internal Med History&Physical ---
HPI History of Present Illness Patient information: Note initiated : 07/23/22 at 5:45 pm Service Date, if different from initiated Date: [] Patient: Mauri Levine a 36 y/o M admitted on for Gastroparesis. Chief Complaint: [] History of present illness: History of present illness: Mr. Levine is a 36 year old M Presents the ED with 3 days of nausea/vomiting. Patient has history of diabetes with DKA and also history of gastroparesis and nausea vomiting frequent the ED and has many hospitalizations. He also uses marijuana this could very well be marijuana hyperemesis. Other consideration could be cyclic vomiting alone or in conjunction with marijuana use. Per old notes he exhibits binge eating disorder habits. Per the patient he said his Dexcom was not working recently. Family member say he is not always honest with his blood sugars. History is difficult to obtain from the patient as he is drowsy and altered. Per the family at its been extremely difficult situation. They have been looking for placement for him but that he placement taken because he is either diabetic type 1 or is too young. Mother also states that he had a gastric emptying study when he was up at [facility] in February that was normal. Patient has a gastric stimulator in place and follows with [facility]. 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 Pt has been admitted 9 times this year and visited ED much more. In the ED is found to have a metabolic alkalosis as usual. Contraction alkalosis from volume loss and H+ loss from emesis. His creatinine was 5.9 in the ED. Vital signs were stable other than a mildly tachycardic heart rate and elevated blood pressure as usual. CT abdomen pelvis unremarkable other than some mild right hydronephrosis iliac crossing and bladder distention bicarb is 39 and potassium 3.3. Chloride <60. Sodium 121. Glucose 1309, anion gap of 22. Mild leukocytosis at 12.4 Osmolality 381. Beta hydroxybutyric acid 9.8 He has some abdominal pain from the nausea. No chest pain or shortness of breath. Review of Systems: Pertinent positives above. Denies headache/fever/chills//chest pain/cough/dyspnea/diarrhea. Remaining 10 point review of system reviewed negative PFSH PFSH All Active Problems (Updated 06/26/22 @ 08:57 by Khari Mills MD) Testosterone deficiency (Chronic) Nausea and vomiting (Chronic) GERD (gastroesophageal reflux disease) (Chronic) Other hammer toe(s) (acquired), left foot (Chronic) Hypertension, essential (Chronic) Hyperlipidemia (Chronic) History of neuroleptic malignant syndrome (Chronic) Dehydration (Chronic) Drug-induced nausea and vomiting (Acute) Uncontrolled type 1 diabetes mellitus with diabetic nephropathy, with long-term current use of insulin (Chronic) Cyclic vomiting syndrome (Chronic) Type 1 diabetes mellitus with stage 3 chronic kidney disease and hypertension (Chronic) Marijuana use, continuous (Chronic) CKD (chronic kidney disease) (Acute) Nephrotic range proteinuria (Chronic) Controlled type 1 diabetes mellitus with chronic kidney disease (Chronic) Port-A-Cath in place (Acute) Diabetic gastroparesis associated with type 1 diabetes mellitus (Chronic) Diabetic neuropathy associated with type 1 diabetes mellitus (Chronic) Diabetic retinopathy associated with type 1 diabetes mellitus (Chronic) Anxiety (Chronic) Back pain (Chronic) Physical deconditioning (Chronic) Malnutrition (Chronic) Acute dehydration (Acute) Acute hypokalemia (Acute) QT prolongation (Acute) Dehydration (Acute) No-show for appointment (Acute) Intractable cyclical vomiting with nausea (Acute) Diabetic gastroparesis (Chronic) ROSALIO (acute kidney injury) (Acute) Hyperglycemia (Acute) Dehydration (Acute) Major depressive disorder, recurrent (Chronic) Generalized anxiety disorder (Chronic) Trauma and stressor-related disorder (Chronic) Diabetic gastroparesis (Acute) Nausea & vomiting (Acute) Acute dehydration (Acute) Ketosis (Acute) Uncontrolled diabetes mellitus (Acute) DKA (diabetic ketoacidosis) (Acute) Hyperosmolar hyperglycemic state (HHS) (Acute) Diabetic gastroparesis (Acute) Metabolic alkalosis (Acute) Stage 2 acute kidney injury (Acute) Hyponatremia (Acute) DKA (diabetic ketoacidosis) (Acute) Has multiple sexual partners (Acute) Hyperosmolar hyperglycemic state (HHS) (Acute) Acute hypokalemia (Acute) ROSALIO (acute kidney injury) (Acute) Nausea & vomiting (Acute) Hypochloremia (Acute) Alkalosis (Acute) Acute renal failure superimposed on stage 3a chronic kidney disease (Acute) Metabolic alkalosis (Acute) Altered mental status (Acute) Depression (Acute) Acute hyperglycemia (Acute) Nausea & vomiting (Acute) Seizures (Acute) Abnormal CT of brain (Acute) Sepsis (Acute) Hyponatremia (Acute) Pneumonia (Acute) Acute renal failure (Acute) Hypokalemia (Acute) Diabetic gastroparesis (Acute) Diabetic gastroparesis (Acute) CKD stage G3b/A3, GFR 30-44 and albumin creatinine ratio >300 mg/g (Acute) Renal failure (ARF), acute on chronic (Acute) ROSALIO (acute kidney injury) (Acute) Acute hypokalemia (Acute) Acidosis (Acute) Acid-base disorder, mixed (Acute) Acute worsening of stage 4 chronic kidney disease (Acute) Type 1 diabetes mellitus with hyperosmolar hyperglycemic state (HHS) (Acute) Acute hypokalemia (Acute) Nausea & vomiting (Acute) Acute respiratory failure with hypoxia (Acute) Type 1 diabetes mellitus with hyperosmolar hyperglycemic state (HHS) (Acute) Anemia associated with stage 4 chronic renal failure (Acute) DKA, type 1, not at goal (Acute) Metabolic acidosis with respiratory alkalosis (Acute) Gastroparesis (Acute) Tetrahydrocannabinol (THC) use disorder, moderate, dependence (Chronic) Binge eating disorder (Chronic) CKD stage 4 due to type 1 diabetes mellitus (Acute) Medical History Abdominal pain, epigastric Abnormal CT of brain Altered mental status Anxiety Back pain Chronic ulcer of left foot Coffee ground emesis Depression Diabetes mellitus type I Age 12, With foot ulcer Diabetic gastroparesis associated with type 1 diabetes mellitus Diabetic neuropathy associated with type 1 diabetes mellitus Diabetic peripheral neuropathy Diabetic retinopathy associated with type 1 diabetes mellitus DKA, type 1 Esophageal candidiasis Gastroenteritis Gastroparesis due to DM GERD (gastroesophageal reflux disease) Hallux valgus (acquired), left foot Has multiple sexual partners History of neuroleptic malignant syndrome To compazine (prochlorperazine). Tolerates promethazine without issue Hyperlipidemia Hypertension, essential labile due to unpredictable Rx absorption with gastroparesis and propensity for dehydration Hold captopril if persistent vomiting occurs or bp less than 120/80 stop coreg and nifedipine Continue clonidine patch#1 Labetalol IV PRN Hypokalemia Connie-Byrne tear Malnutrition Marijuana use, continuous Nausea and vomiting Non-pressure chronic ulcer of other part of left foot limited to breakdown of skin Other hammer toe(s) (acquired), left foot Peripheral autonomic neuropathy due to DM Physical deconditioning Seizures Sepsis Tardive dyskinesia due to metoclopramide (Reglan) Testosterone deficiency Surgical History History of hand surgery Finger repair History of toe surgery left hallux Family History Mother Atrial fibrillation Essential hypertension Sister Malignant neoplasm of female breast Maternal Grandfather Malignant neoplasm of colon Recorded 11/12/10 Father Essential hypertension Other Adopted DKA, type 1 Social History adopted: Yes household members: family housing: other details: 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 marital status: single occupational status: disabled occupation: On disability since 2016 physical activity: walking smoking status: Never smoker alcohol intake frequency: former alcohol drinker substance use type: former substance user seatbelt use: always MEDS/ALLERGIES Home Medications and Allergies Home Medications Medication Instructions Recorded Confirmed Type Dexcom sensor & monitor #1 ea 08/27/21 06/29/22 Rx acetone (urine) test (Ketone Urine #100 ea 09/10/21 06/29/22 Rx Test strips) blood sugar diagnostic (Blood #500 ea 09/10/21 06/29/22 Rx Glucose Test strips) blood-glucose meter #1 ea 09/10/21 06/29/22 Rx lancets #500 ea 09/10/21 06/29/22 Rx insulin syringes (disposable) 1 mL #500 ea 01/12/22 06/29/22 Rx promethazine 25 mg rectal 25 mg DC Q6H PRN nausea and 04/09/22 06/29/22 Rx suppository (Promethegan) vomiting #12 ea glucagon 3 mg/actuation nasal 3 mg intranasal ONCE PRN 04/20/22 06/29/22 Rx spray (Baqsimi) hypoglycemia #1 ea fluoxetine 20 mg capsule 20 mg PO QDAY #90 caps 05/04/22 06/29/22 Rx famotidine 20 mg tablet 10 mg PO BID #90 tabs 05/12/22 06/29/22 Rx sucralfate 1 gram tablet (Carafate) 1 g PO BID #70 tabs 05/28/22 06/29/22 Rx mirtazapine 15 mg disintegrating 15 mg PO HS #90 tabs 06/08/22 06/29/22 Rx tablet venlafaxine 75 mg capsule,extended 225 mg PO QAM #90 caps 06/08/22 06/29/22 Rx release 24 hr ondansetron 4 mg disintegrating 4 mg PO Q6H PRN nausea and 06/22/22 06/29/22 Rx tablet vomiting #20 tabs clonidine 0.3 mg/24 hr weekly 1 patch TD Fr@1000 #4 ea 06/25/22 06/29/22 Rx transdermal patch diltiazem HCl 30 mg tablet 60 mg PO Q8 #90 tabs 06/25/22 06/29/22 Rx diphenhydramine HCl 25 mg capsule 25 mg PO QHS PRN insomnia #30 caps 06/25/22 06/29/22 Rx (EZ Nite Sleep) ropinirole 0.25 mg tablet 0.5 mg PO HSP PRN restless leg #10 06/25/22 06/29/22 Rx tabs insulin aspart U-100 100 unit/mL See Rx Instructions subcut TID #60 06/26/22 06/29/22 Rx subcutaneous solution (Novolog mL U-100 Insulin aspart) ondansetron 4 mg disintegrating 4 mg PO Q8H cyclic vomiting #120 07/20/22 Rx tablet tabs Allergies Allergy/AdvReac Type Severity Reaction Status Date / Time NSAIDS (Non-Steroidal Allergy Unknown Unknown Verified 07/23/22 10:09 Anti-Inflamma metoclopramide [From Reglan] AdvReac Mild Agitated Verified 07/23/22 10:09 prochlorperazine AdvReac Mild "My whole Verified 07/23/22 10:09 [From Compazine] body freaks out." silver AdvReac Mild dystonic Verified 07/23/22 10:09 IV iodine contrast Allergy Unknown Unknown Uncoded 05/25/22 10:33 EXAM Constitutional Vitals: Pulse Resp BP Pulse Ox 100 H 19 158/85 94 07/23/22 17:31 07/23/22 17:40 07/23/22 17:31 07/23/22 17:31 Exam: General: Alert, Awake, No acute Distress Eyes/N/T: EOMI, PERRL, dry MM Head/Neck: neck supple, normocephalic atraumatic CV: RRR, No murmurs, normal s1/s2 Pulm: Clear b/l, no wheezing/rhonchi/rales Abd: soft, nontender, +BS x4 Ext: no clubbing/cyanosis/edema Neuro: Alert, no focal deficits, moves all extremities, CN 2-12 grossly intact, symmetrical strength b/l upper/lower, sensations intact b/l upper/lower Skin: warm/dry DATA Data Completed and Pending Labs: Labs from last 24 hours 07/23/22 07/23/22 07/23/22 16:12 11:04 11:04 WBC RBC Hgb Hct MCV MCH MCHC RDW Plt Count MPV Immature Gran % (Auto) Neut % (Auto) Lymph % (Auto) [place] % (Auto) Eos % (Auto) Baso % (Auto) Lymph # (Auto) [place] # (Auto) Eos # (Auto) Baso # (Auto) Immature Gran # Absolute Neutrophils Patient Temperature Pending ABG pH Pending ABG pH (Temp Correct) Pending ABG pCO2 Pending ABG pCO2 (Temp Corrct Pending ABG pO2 Pending ABG pO2 (Temp Correct Pending ABG HCO3 Pending ABG Total CO2 Pending ABG O2 Saturation Pending ABG Base Excess Pending ABG Methemoglobin Pending Carboxyhemoglobin Pending Total Hemoglobin Pending Respiration Rate Pending O2 Delivery Method Pending Vent Mode Pending FiO2 Pending Tidal Volume Pending PEEP Pending Sodium Potassium Chloride Carbon Dioxide Anion Gap BUN Creatinine GFR Calculation Glucose Osmolality 381 H Calcium Total Bilirubin Direct Bilirubin AST ALT Alkaline Phosphatase Total Protein Albumin Globulin Lipase Beta-Hydroxybutyrate 9.80 H 07/23/22 07/23/22 07/23/22 11:01 10:20 10:20 WBC 12.4 H RBC 3.85 L Hgb 10.3 L Hct 31.9 L MCV 82.9 MCH 26.8 MCHC 32.3 RDW 15.3 H Plt Count 342 MPV 11.6 Immature Gran % (Auto) 0.4 Neut % (Auto) 82.5 H Lymph % (Auto) 5.2 L [place] % (Auto) 11.7 Eos % (Auto) 0 Baso % (Auto) 0.2 Lymph # (Auto) 0.65 L [place] # (Auto) 1.45 H Eos # (Auto) 0 Baso # (Auto) 0.03 Immature Gran # 0.05 Absolute Neutrophils 10.24 H Patient Temperature ABG pH ABG pH (Temp Correct) ABG pCO2 ABG pCO2 (Temp Corrct ABG pO2 ABG pO2 (Temp Correct ABG HCO3 ABG Total CO2 ABG O2 Saturation ABG Base Excess ABG Methemoglobin Carboxyhemoglobin Total Hemoglobin Respiration Rate O2 Delivery Method Vent Mode FiO2 Tidal Volume PEEP Sodium 121 L Potassium 3.3 Chloride < 60 L Carbon Dioxide 39 H Anion Gap 22.0 H BUN 101 H* Creatinine 5.9 H* GFR Calculation 11 Glucose 1309 H* Osmolality Calcium 7.0 L Total Bilirubin 0.2 Direct Bilirubin < 0.2 AST 10 ALT 10 Alkaline Phosphatase 165 H Total Protein 6.9 Albumin 4.0 Globulin 2.9 Lipase 192 H Beta-Hydroxybutyrate A/P Narrative A/P Narrative: A: *DKA-HHS (h/o DMI with h/o Gastroparesis/Neuropathy): likely triggered by below and likely noncompliance given his history. -BG on admit 1309 *N/V: 2/2 likely marijuana hyperemesis vs cyclic vomiting alone or in conjunction with THC, and h/o gastroparesis *pseudoHyponatremia: *Cannabis use: and likely Cannabis hyperemesis syndrome *ROSALIO on CKD IV: Follows with Dr. Mills *Metabolic alkalosis: 2/2 volume loss and H+ loss from n/v *Volume depletion: *Electrolyte d/o (hypokalemia/hypochloremia): *Marijuana use *Anemia, chronic: *HTN: On coreg/clonidine/captopril *Anxiety/depression/binge eating disorder: on Fluoxetine *Long QT Syndrome: noted on EKG's since 2019. Pt is on SSRI *GERD: *long-term prognosis guarded if he doesn't become more vigilant in caring for his disease P: -icu monitoring -IVF's -insulin gtt, hold insulin pump for now -Monitor electrolytes and replace -Nephrology consult -f/u blood gas -clear liquids when patient is tolerant and advance diet as able to gastroparesis diet (low fat, soluble fiber) -will try Antiemetics that won't prolong QT (Scopolamine,Benzodiazepines) -cont clonidine/BB, restart ACEI once renal fxn at baseline, IV prn BP meds -Home medication reconciliation -ppx: Heparin/H2 Time Spent With Patient Time: Total time spent is greater than 50% in coordination of care (as documented) at patient's floor/unit and/or counseling patient: Critical Care Time: Yes Total Critical Care Time: 60
[2022-07-23 21:21] LABS: Appearance,Urine CLEAR (Clear); Bilirubin,Urine Negative (Negative); Color,Urine COLORLESS; Culture Indicated,Urine No; Glucose,Urine (UA) >=500 mg/dL (Negative); Ketones,Urine 20 mg/dL (Negative); Leukocyte Esterase,Urine Negative /uL (Negative); Nitrate,Urine Negative (Negative); Protein,Urine 100 mg/dL (Negative); Specific Gravity,Urine 1.012 (1.000-1.035); Urine Blood 0.03 mg/dL (Negative); Urine RBC < 1 /hpf (0-3); Urine Squamous Epithelial Cell 0 /hpf (0-4); Urine WBC 1 /hpf (0-4); Urobilinogen,Urine Negative
[2022-07-23 21:28] LABS: Amphetamine Screen,Urine None detected; Barbiturate Screen,Urine None detected; Benzodiazepines Screen,Urine None detected; Cannabinoid Screen,Urine None detected; Cocaine Screen,Urine None detected; Opiate Screen,Urine None detected; Oxycodone, Urine Screen None detected; Phencyclidine Screen,Urine None detected
[2022-07-23 21:57] LABS: POC Blood Urea Nitrogen 70 (6-20); POC Calcium, Ionized 0.75 (1.16-1.32); POC Chloride 78 (96-108); POC Creatinine 6.2 (0.6-1.2); POC Glucose, Random > 700 (70-105); POC Potassium 2.8 (3.3-5.1); POC Sodium 132 (133-145)
[2022-07-23 22:35] LABS: Phosphorous 4.3 mg/dL (2.5-4.5)
[2022-07-23] MEDS ORDERED: SENNOSIDES 1 TABLET PO PRN (22:40)
[2022-07-23] MEDS ORDERED: POLYETHYLENE GLYCOL 3350 17 GM PACKET PO PRN (22:40)
[2022-07-23] MEDS ORDERED: POTASSIUM CHLORIDE 20 MEQ TABLET PO PRN (22:40)
[2022-07-23] MEDS ORDERED: POTASSIUM CHLORIDE 40 MEQ in DEXTROSE 5% IN WATER 500 ML IV PRN (22:40)
[2022-07-23] MEDS ORDERED: IPRATROPIUM/ALBUTEROL 3 ML AMPUL.NEB NEB PRN (22:40)
[2022-07-23] MEDS ORDERED: MAGNESIUM SULFATE 2 GM/50 ML BAG IV PRN (22:40)
[2022-07-23] MEDS ORDERED: SCOPOLAMINE 1 PATCH PATCH TOPICAL SCH (22:40)
[2022-07-23] MEDS ORDERED: ONDANSETRON 4 MG/2 ML VIAL IV PRN (22:40)
[2022-07-23 22:44] LABS: Albumin 3.7 gm/dL (3.2-5.2); Blood Urea Nitrogen 87 mg/dL (6-20); Calcium 7.3 mg/dL (8.6-10.4); Carbon Dioxide 36 mmol/L (22-30); Chloride 73 mmol/L (96-108); Glomerular Filtration Rate 13; Glucose 690 mg/dL (70-105); Phosphorous 4.2 mg/dL (2.5-4.5)
[2022-07-23] MEDS ORDERED: LORazepam 2 MG/ML VIAL ONE (22:45)
[2022-07-23] MEDS: LORazepam 2 MG/ML VIAL IV PRN (22:45)
[2022-07-23 22:47] LABS: Beta Hydroxybutyrate 8.41 mmol/L (<0.27)
[2022-07-23] MEDS ORDERED: POTASSIUM CHLORIDE 20 MEQ/10 ML VIAL IV ONE (23:29)
[2022-07-23] MEDS: 0.9 % SODIUM CHLORIDE 1,000 ML IV SCH (23:30)
[2022-07-23] MEDS ORDERED: SCOPOLAMINE 1 PATCH PATCH ONE (23:34)
[2022-07-23 23:35] LABS: POC Blood Urea Nitrogen 74 (6-20); POC Calcium, Ionized 0.68 (1.16-1.32); POC Chloride 80 (96-108); POC Creatinine 5.9 (0.6-1.2); POC Glucose, Random > 700 (70-105); POC Sodium 131 (133-145)
[2022-07-23] MEDS ORDERED: HEPARIN 5,000 UNIT/ML VIAL ONE (23:38)
[2022-07-23] MEDS: HEPARIN 5,000 UNIT/ML VIAL SQ SCH (23:39)
[2022-07-23] MEDS ORDERED: FAMOTIDINE/PF 20 MG/2 ML VIAL IV ONE (23:39)
[2022-07-23] MEDS: 0.9 % SODIUM CHLORIDE 10 ML SYRINGE IV SCH (23:40)
[2022-07-23] MEDS: FAMOTIDINE/PF 20 MG/2 ML VIAL IV SCH (23:40)
[2022-07-23] MEDS ORDERED: INSULIN REGULAR, HUMAN 1 UNIT/0.01 ML UNIT ONE (23:50)
[2022-07-24] MEDS ORDERED: LABETALOL 5 MG/ML ML IV ONE ×2 (00:05→01:59)
[2022-07-24] MEDS: LABETALOL 5 MG/ML ML IV PRN ×7 (00:05→23:12)
[2022-07-24] MEDS: INSULIN REGULAR, HUMAN 50 UNIT in 0.9 % SODIUM CHLORIDE 99.5 ML IV SCH ×2 (00:16→17:11)
[2022-07-24 01:19] LABS: POC Blood Urea Nitrogen 80 (6-20); POC Calcium, Ionized 0.83 (1.16-1.32); POC Chloride 80 (96-108); POC Creatinine 5.6 (0.6-1.2); POC Glucose, Random > 700 (70-105); POC Potassium 3.5 (3.3-5.1); POC Sodium 133 (133-145)
[2022-07-24 02:08] LABS: POC Blood Urea Nitrogen 83 (6-20); POC Calcium, Ionized 0.85 (1.16-1.32); POC Chloride 81 (96-108); POC Creatinine 5.4 (0.6-1.2); POC Glucose, Random > 700 (70-105); POC Potassium 3.5 (3.3-5.1); POC Sodium 134 (133-145)
[2022-07-24] MEDS ORDERED: LORazepam 2 MG/ML VIAL ONE (02:50)
[2022-07-24] MEDS: LORazepam 2 MG/ML VIAL IV PRN ×4 (02:51→22:59)
[2022-07-24 03:17] LABS: POC Blood Urea Nitrogen 81 (6-20); POC Chloride 83 (96-108); POC Creatinine 5.7 (0.6-1.2); POC Glucose, Random > 700 (70-105); POC Potassium 3.5 (3.3-5.1); POC Sodium 132 (133-145)
[2022-07-24 04:04] LABS: Glucose 766 mg/dL (70-105)
[2022-07-24] MEDS ORDERED: INSULIN REGULAR, HUMAN 1 UNIT/0.01 ML UNIT ONE ×2 (04:05→05:30)
[2022-07-24 05:29] LABS: POC Calcium, Ionized 0.89 (1.16-1.32); POC Creatinine 5.4 (0.6-1.2); POC Potassium 3.5 (3.3-5.1)
[2022-07-24] MEDS: 0.9 % SODIUM CHLORIDE 10 ML SYRINGE IV SCH ×4 (05:37→20:57)
[2022-07-24 06:50] LABS: Basophils # (Auto) 0.02 K/mcL (0.00-0.30); Basophils % (Auto) 0.1 % (0.0-2.0); Eosinophils # (Auto) 0 K/mcL (0.00-0.70); Eosinophils % (Auto) 0 % (0.0-7.0); Hematocrit 29.6 % (40.1-51.0); Hemoglobin 9.5 g/dL (13.7-17.5); Lymphocytes # (Auto) 1.23 K/mcL (1.50-4.80); Lymphocytes % (Auto) 7.8 % (15.5-49.0); Mean Cell Volume 84.1 fL (80.0-100.0); Mean Corpuscular HGB Conc 32.1 g/dL (31.0-36.0); Mean Platelet Volume 11.3 fL (8.8-12.5); Monocytes # (Auto) 1.91 K/mcL (0.10-0.90); Monocytes % (Auto) 12.1 % (1.0-12.0); Neutrophils % (Auto) 79.5 % (38.0-78.0); Platelet Count 292 K/mcL (140-440); RBC 3.52 M/mcL (4.63-6.08); Red Cell Distribution Width 15.6 % (11.5-14.5); WBC 15.8 K/mcL (4.5-11.0)
[2022-07-24] MEDS: 0.9 % SODIUM CHLORIDE 1,000 ML IV SCH (06:53)
[2022-07-24] MEDS ORDERED: 0.9 % SODIUM CHLORIDE 250 ML IV SCH (07:00)
[2022-07-24 07:22] LABS: ALT/SGPT 8 U/L (<40); AST/SGOT 13 U/L (<40); Albumin 3.3 gm/dL (3.2-5.2); Albumin/Globulin Ratio 1.3 (1.0-2.3); Alkaline Phosphatase 142 U/L (39-117); Bilirubin,Direct < 0.2 mg/dL (0-0.3); Bilirubin,Total 0.2 mg/dL (0.1-1.0); Blood Urea Nitrogen 79 mg/dL (6-20); Calcium 7.6 mg/dL (8.6-10.4); Carbon Dioxide 38 mmol/L (22-30); Chloride 86 mmol/L (96-108); Globulin 2.6 gm/dL (2.2-3.7); Glomerular Filtration Rate 13; Glucose 598 mg/dL (70-105); Lactate Dehydrogenase 248 U/L (135-225); Phosphorous 8.3 mg/dL (2.5-4.5); Triglycerides 205 mg/dL (<150)
--- NOTE | 2022-07-24 08:59 | Internal Med Progress Note ---
SUBJECTIVE Subjective Patient information: Note initiated : 07/24/22 at 8:56 am Service Date, if different from initiated Date: [] Patient: Mauri Levine a 36 y/o M admitted on 07/23/22 for Gastroparesis. Chief Complaint: [] Interval history: History of present illness: Mr. Levine is a 36 year old M Presents the ED with 3 days of nausea/vomiting. Patient has history of diabetes with DKA and also history of gastroparesis and nausea vomiting frequent the ED and has many hospitalizations. He also uses marijuana this could very well be marijuana hyperemesis. Other consideration could be cyclic vomiting alone or in conjunction with marijuana use. Per old notes he exhibits binge eating disorder habits. Per the patient he said his Dexcom was not working recently. Family member say he is not always honest with his blood sugars. History is difficult to obtain from the patient as he is drowsy and altered. Per the family at its been extremely difficult situation. They have been looking for placement for him but that he placement taken because he is either diabetic type 1 or is too young. Mother also states that he had a gastric emptying study when he was up at [place] in February that was normal. Patient has a gastric stimulator in place and follows with [facility]. 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 Pt has been admitted 9 times this year and visited ED much more. In the ED is found to have a metabolic alkalosis as usual. Contraction alkalosis from volume loss and H+ loss from emesis. His creatinine was 5.9 in the ED. Vital signs were stable other than a mildly tachycardic heart rate and elevated blood pressure as usual. CT abdomen pelvis unremarkable other than some mild right hydronephrosis iliac crossing and bladder distention bicarb is 39 and potassium 3.3. Chloride <60. Sodium 121. Glucose 1309, anion gap of 22. Mild leukocytosis at 12.4 Osmolality 381. Beta hydroxybutyric acid 9.8 He has some abdominal pain from the nausea. No chest pain or shortness of breath. 07/24 Patient says slept well. Feeling better today. Able to keep down clear liquids without vomiting. Abdominal pain improving. Still ketones in his blood. Down to almost 300 blood glucose now. However patient is on oxygen because of hypoxia overnight. Will obtain chest x- ray. Perhaps he aspirated. Acid-base disturbance. Creatinine elevated. Multiple electrolyte imbalances. Review of Systems: denies headache/fever/chills/chest pain/cough/dyspnea/diarrhea. Otherwise see above. Constitutional Vitals: Vital Signs Temp Pulse Resp BP Pulse Ox O2 Del Method O2 Flow Rate 99.3 F H 87 25 H 148/68 100 2 07/24/22 08:15 07/24/22 08:15 07/24/22 08:15 07/24/22 08:15 07/24/22 08:15 07/24/22 08:15 07/24/22 06:01 Period Temp Pulse Resp BP Sys/Menard Pulse Ox O2 Del Method O2 Flow Rate Last 24 Hr 99.3 F-99.6 F 82-112 13-27 122-202/60-110 84-100 Nasal Cannula-Nasal Cannula 2-2 Intake and Output 07/23/22 07/24/22 07/24/22 19:59 03:59 11:59 Intake Total 2061 100 1482 Output Total 26 1603 Balance 2061 982 -121 Weight 68.81 kg Intake & Output: Intake & Output 07/23/22 07/24/22 07/24/22 19:59 03:59 11:59 Intake Total 2061 100 1482 Output Total 26 1603 Balance 2061 982 -121 Weight 68.81 kg Intake: IV 2061 1007 1482 Sodium Chloride 0.9% 1,000 ml @ 1000 923 125 mls/hr IV .Q8H [facility] Rx#: [id number] HumuLIN R 50 UNIT In Sodium 62 8 39 Chloride 0.9% 99.5 ml @ 7 UNIT/ HR 14 mls/hr IV DUR KOKO Rx#: [id number] Lactated Ringers 1,000 ml @ 1000 Wide Open IV BOLUS ONE Rx#: [id number] NaCl 0.9% W/KCl 20Meq 1000ML 1, 1000 000 ml @ 100 mls/hr IV .Q10H [facility] Rx#:[id number] Potassium Chloride 40 Meq In 520 Dextrose 5% in Water 500 ml @ 130 mls/hr IV UD PRN Rx#: [id number] Output: Urine Catheter Amount 700 Void Amount 25 900 # of times incontinent of urine 1 3 Other: Urine Appearance Clear Clear Uretheral (Mcknight) Clear Urine Color Bright Yellow Bright Yellow Uretheral (Mcknight) Yellow Pale Urine Odor Strong Normal Uretheral (Mcknight) Normal Stool Size Small Stool Color Brown Stool Consistency Soft Loose # Bowel Movements 1 Exam: General: Awake, No acute Distress Eyes/N/T: EOMI, Head/Neck: neck supple, CV: RRR, 3/6SM, Pulm: Clear b/l, no wheezing/rhonchi/rales Abd: soft, nontender, +BS x4 Ext: no clubbing/cyanosis/edema Neuro: mentation more clear today, no focal deficits, moves all extremities, Skin: warm/dry OBJ DATA Labs CBC & Chem 7: 07/24/22 05:16 07/24/22 05:16 Labs: Abnormal Lab Results 07/24/22 07/24/22 07/24/22 05:26 05:16 05:16 WBC 15.8 H RBC 3.52 L Hgb 9.5 L Hct 29.6 L POC Hct 31.0 L RDW 15.6 H Neut % (Auto) 79.5 H Lymph % (Auto) 7.8 L [place] % (Auto) 12.1 H Lymph # (Auto) 1.23 L [place] # (Auto) 1.91 H Immature Gran # 0.08 H Absolute Neutrophils 12.60 H POC Sodium Sodium POC Potassium Potassium POC Chloride 83 L Chloride 86 L Carbon Dioxide 38 H POC Total CO2 42.0 H Anion Gap POC BUN 81 H BUN 79 H Creatinine 5.1 H* POC Creatinine 5.4 H* Glucose 598 H* POC Glucose 629 H* Osmolality Uric Acid 11.0 H Calcium 7.6 L POC WB Ioniz Calcium 0.89 L Phosphorus 8.3 H* Magnesium 4.3 H* Alkaline Phosphatase 142 H Lactate Dehydrogenase 248 H Triglycerides 205 H Lipase Beta-Hydroxybutyrate Urine Protein Urine Glucose (UA) Urine Ketones 07/24/22 07/24/22 07/24/22 03:14 03:10 02:02 WBC RBC Hgb Hct POC Hct 32.0 L 32.0 L RDW Neut % (Auto) Lymph % (Auto) [place] % (Auto) Lymph # (Auto) [place] # (Auto) Immature Gran # Absolute Neutrophils POC Sodium 132 L Sodium POC Potassium Potassium POC Chloride 83 L 81 L Chloride Carbon Dioxide POC Total CO2 37.0 H 39.0 H Anion Gap POC BUN 81 H 83 H BUN Creatinine POC Creatinine 5.7 H* 5.4 H* Glucose 766 H* POC Glucose > 700 H* > 700 H* Osmolality Uric Acid Calcium POC WB Ioniz Calcium 0.80 L 0.85 L Phosphorus Magnesium Alkaline Phosphatase Lactate Dehydrogenase Triglycerides Lipase Beta-Hydroxybutyrate Urine Protein Urine Glucose (UA) Urine Ketones 07/24/22 07/23/22 07/23/22 01:16 23:32 21:53 WBC RBC Hgb Hct POC Hct 33.0 L 34.0 L 34.0 L RDW Neut % (Auto) Lymph % (Auto) [place] % (Auto) Lymph # (Auto) [place] # (Auto) Immature Gran # Absolute Neutrophils POC Sodium 131 L 132 L Sodium POC Potassium 3.0 L 2.8 L* Potassium POC Chloride 80 L 80 L 78 L Chloride Carbon Dioxide POC Total CO2 39.0 H 35.0 H 36.0 H Anion Gap POC BUN 80 H 74 H 70 H BUN Creatinine POC Creatinine 5.6 H* 5.9 H* 6.2 H* Glucose POC Glucose > 700 H* > 700 H* > 700 H* Osmolality Uric Acid Calcium POC WB Ioniz Calcium 0.83 L 0.68 L* 0.75 L Phosphorus Magnesium Alkaline Phosphatase Lactate Dehydrogenase Triglycerides Lipase Beta-Hydroxybutyrate Urine Protein Urine Glucose (UA) Urine Ketones 07/23/22 07/23/22 07/23/22 21:05 21:05 18:50 WBC RBC Hgb Hct POC Hct RDW Neut % (Auto) Lymph % (Auto) [place] % (Auto) Lymph # (Auto) [place] # (Auto) Immature Gran # Absolute Neutrophils POC Sodium Sodium POC Potassium Potassium 2.8 L* POC Chloride Chloride 73 L Carbon Dioxide 36 H POC Total CO2 Anion Gap 26.0 H POC BUN BUN 87 H Creatinine 5.2 H* POC Creatinine Glucose 690 H* POC Glucose Osmolality Uric Acid Calcium 7.3 L POC WB Ioniz Calcium Phosphorus Magnesium 4.2 H* Alkaline Phosphatase Lactate Dehydrogenase Triglycerides Lipase Beta-Hydroxybutyrate 8.41 H Urine Protein 100 A Urine Glucose (UA) >=500 A Urine Ketones 20 A 07/23/22 07/23/22 07/23/22 11:04 11:04 11:01 WBC RBC Hgb Hct POC Hct RDW Neut % (Auto) Lymph % (Auto) [place] % (Auto) Lymph # (Auto) [place] # (Auto) Immature Gran # Absolute Neutrophils POC Sodium Sodium 121 L POC Potassium Potassium POC Chloride Chloride < 60 L Carbon Dioxide 39 H POC Total CO2 Anion Gap 22.0 H POC BUN BUN 101 H* Creatinine 5.9 H* POC Creatinine Glucose 1309 H* POC Glucose Osmolality 381 H Uric Acid Calcium 7.0 L POC WB Ioniz Calcium Phosphorus Magnesium Alkaline Phosphatase Lactate Dehydrogenase Triglycerides Lipase Beta-Hydroxybutyrate 9.80 H Urine Protein Urine Glucose (UA) Urine Ketones 07/23/22 07/23/22 10:20 10:20 WBC 12.4 H RBC 3.85 L Hgb 10.3 L Hct 31.9 L POC Hct RDW 15.3 H Neut % (Auto) 82.5 H Lymph % (Auto) 5.2 L [place] % (Auto) Lymph # (Auto) 0.65 L [place] # (Auto) 1.45 H Immature Gran # Absolute Neutrophils 10.24 H POC Sodium Sodium POC Potassium Potassium POC Chloride Chloride Carbon Dioxide POC Total CO2 Anion Gap POC BUN BUN Creatinine POC Creatinine Glucose POC Glucose Osmolality Uric Acid Calcium POC WB Ioniz Calcium Phosphorus Magnesium Alkaline Phosphatase 165 H Lactate Dehydrogenase Triglycerides Lipase 192 H Beta-Hydroxybutyrate Urine Protein Urine Glucose (UA) Urine Ketones Meds: Medications Acetaminophen (Acetaminophen 325 Mg Tablet) 650 mg PO Q6HP PRN; Protocol PRN Reason: Per Pain Protocol/Fever > 101 Albuterol/Ipratropium (Ipratropium/Albuterol 3 Ml Ampul.Neb) 3 ml NEB Q4HP PRN PRN Reason: Shortness Of Breath Diagnostic Test (Pha) (Accu-Chek 1 Each Strip) 1 each FS Q1 [facility] Last Admin: 07/24/22 08:00 Dose: 1 each Famotidine (Famotidine/Pf 20 Mg/2 Ml Vial) 20 mg IV HS K[facility]O Last Admin: 07/23/22 23:40 Dose: 20 mg Heparin Sodium (Porcine) (Heparin 5,000 Unit/Ml Vial) 5,000 unit SQ Q12 [facility] Last Admin: 07/23/22 23:39 Dose: 5,000 unit Insulin Human Regular 50 unit/ (Sodium Chloride) 100 mls @ 14 mls/hr IV DUR KOKO; Protocol Last Titration: 07/24/22 08:02 Dose: 4.5 unit/hr, 9 mls/hr Potassium Chloride 40 meq/ (Dextrose) 520 mls @ 130 mls/hr IV UD PRN PRN Reason: Potassium < 3 Last Infusion: 07/24/22 04:54 Dose: Infused Magnesium Sulfate (Magnesium Sulfate) 2 gm in 50 mls @ 50 mls/hr IV UD PRN PRN Reason: Magnesium </= 1.6 Sodium Chloride (Sodium Chloride 0.9%) 1,000 mls @ 125 mls/hr IV .Q8H [facility] Last Admin: 07/24/22 06:53 Dose: 125 mls/hr Labetalol HCl (Labetalol 5 Mg/Ml Ml) 0 mg IV Q2HP PRN PRN Reason: Hypertension Last Admin: 07/24/22 02:00 Dose: 10 mg Lorazepam (Lorazepam 2 Mg/Ml Vial) 0.5 mg IV Q4-6HP PRN PRN Reason: Nausea Anxiety/Sedation Last Admin: 07/24/22 07:56 Dose: 0.5 mg Ondansetron HCl (Ondansetron 4 Mg/2 Ml Vial) 4 mg IV Q4HP PRN PRN Reason: Nausea And Vomiting Polyethylene Glycol (Polyethylene Glycol 3350 17 Gm Packet) 17 gm PO DAILYP PRN PRN Reason: Constipation Potassium Chloride (Potassium Chloride 20 Meq Tablet) 40 meq PO UD PRN PRN Reason: Potssium is 3-3.5 Potassium Chloride (Potassium Chloride 20 Meq Tablet) 40 meq PO UD PRN PRN Reason: Potassium < 3 Promethazine HCl (Promethazine 25 Mg/Ml Vial) 12.5 mg IV Q6HP PRN PRN Reason: Nausea And Vomiting Scopolamine (Scopolamine 1 Patch Patch) 1 patch TOPICAL Q72H [facility] Last Admin: 07/23/22 23:40 Dose: 1 patch Senna (Sennosides 1 Tablet) 2 tab PO DAILYP PRN PRN Reason: Constipation Sodium Chloride (0.9 % Sodium Chloride 10 Ml Syringe) 10 ml IV Q8 [facility] Last Admin: 07/24/22 05:37 Dose: 10 ml A/P Narrative A/P Narrative: A: *DKA-HHS (h/o DMI with h/o Gastroparesis/Neuropathy): likely triggered by below and likely noncompliance given his history. -BG on admit 1309 *N/V: 2/2 likely marijuana hyperemesis vs cyclic vomiting alone or in conjunction with THC, and h/o gastroparesis *Metabolic Encephalopathy: 2/2 above *Cannabis use: and likely Cannabis hyperemesis syndrome *ROSALIO on CKD IV: Follows with Dr. Mills *Metabolic alkalosis: 2/2 volume loss and H+ loss from n/v *Volume depletion: *Electrolyte d/o (hypokalemia/hypochloremia/Hypermag/Hyperphos): *Acute hypoxic respiratory failure: 2/2 suspected aspiration from multiple bouts of emesis *Marijuana use *Anemia, chronic: *HTN: On coreg/clonidine/captopril *Anxiety/depression/binge eating disorder: on Fluoxetine *Long QT Syndrome: noted on EKG's since 2019. Pt is on SSRI *GERD: *long-term prognosis guarded if he doesn't become more vigilant in caring for his disease P: -icu monitoring -IVF's -insulin gtt, hold insulin pump for now -Monitor electrolytes and replace -Nephrology following -f/u blood gas, acetone -cxr, O2 supp and wean -clear liquids when patient is tolerant and advance diet as able to gastroparesis diet (low fat, soluble fiber) -will try Antiemetics that won't prolong QT (Scopolamine,Benzodiazepines) -cont clonidine/BB, restart ACEI once renal fxn at baseline, IV prn BP meds -echo for loud cardiac murmur -f/u with mental health team -ppx: Heparin/H2 Plan of Treatment: q1 hr glucose checks q 6 hr RFP, and q12 hr Beta (OH) Buterate NS at 250 cc hr until glucose < 400, then switch to D51/2 NS with KCl Supplement PO4 when needed with IV KPO4 Keep insulin drip going and titrate but DO NOT STOP UNTIL Ketones are negative in serum 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 Social issues abound along with his self-destructive behavior despite the fact he has state of the art CGM and glucose pump equipment and the gastrict pacemeker. To keep along the current path fulfills [facility]'s definition of insanity. Time Spent With Patient Time: Total time spent is greater than 50% in coordination of care (as documented) at patient's floor/unit and/or counseling patient: Critical Care Time: Yes Total Critical Care Time: 50 QUALITY VTE Deep Vein Thrombosis/Pulmonary Embolism Present on Admission: No
[2022-07-24] MEDS ORDERED: rOPINIRole 0.25 MG TABLET PO PRN (09:00)
[2022-07-24] MEDS ORDERED: 0.9 % SODIUM CHLORIDE 1,000 ML IV SCH ×2 (09:07→09:09)
[2022-07-24] MEDS: POTASSIUM CHLORIDE 20 MEQ TABLET PO PRN ×2 (09:07→18:47)
[2022-07-24] MEDS: HEPARIN 5,000 UNIT/ML VIAL SQ SCH ×2 (09:08→20:56)
[2022-07-24] MEDS ORDERED: 0.9 % SODIUM CHLORIDE 250 ML IV ONE (09:18)
[2022-07-24] MEDS: VENLAFAXINE 75 MG CAP.XL.24H PO SCH (09:28)
[2022-07-24] MEDS: CARVEDILOL 6.25 MG TABLET PO SCH ×2 (09:29→20:55)
[2022-07-24] MEDS: FLUoxetine HCL 20 MG CAPSULE PO SCH (09:29)
[2022-07-24] MEDS ORDERED: DEXTROSE 5%-1/2NS 1,000 ML IV SCH (09:30)
[2022-07-24] MEDS ORDERED: cloNIDine TTS 3 1 PATCH PATCH TD SCH (10:02)
[2022-07-24] MEDS: DEXTROSE 5%-1/2NS 1,000 ML IV SCH ×2 (10:13→15:26)
[2022-07-24 10:51] LABS: Anisocytosis 1+ (None Seen); Lymphocytes % 12 % (15-49); Monocytes % (Manual) 6 % (1-12); Platelet Estimate NORMAL (Normal); RBC Morphology ABNORMAL (Normal); Segmented Neutrophils % 82 % (38-78)
--- NOTE | 2022-07-24 11:07 | Nephrology Progress Note ---
SUBJECTIVE Subjective Patient information: Note initiated : 07/24/22 at 11:03 am Service Date, if different from initiated Date: [] Patient: Mauri Levine 36 y/o M admitted on 07/23/22 for Gastroparesis. Chief Complaint: [N/V/delta MS] Principal diagnosis: DKA, THC hyperemesis, ARF on CKD 4, Triple acid/base disorder, Electrolyte Interval history: To ICU for IVF, frequent labs, Insulin drip For the 1st time in 12 successive UDS, yesterdays test was NEGATIVE for THC..so no marijuana use in past 3-30 days depending on frequency of use. States last use (smoking marijuana) was around [place]. Reports N/V before glucose high. Interestingly, rather than repeated correction boluses via pump, he states he gives himself short acting insulin SQ from vial but obviously not enough. Nurses report low grade fever. Adorno in place. I suspect his vision is terrible. Pertinent ROS: Nothing new except neg UDS is negative for 1st time ever at [facility] eating disorder Additional PMFSH (Level 3 Only): N/A Constitutional Vitals: Vital Signs Temp Pulse Resp BP Pulse Ox O2 Del Method O2 Flow Rate 37.3 C H 81 20 184/89 100 97 07/24/22 10:01 07/24/22 10:01 07/24/22 10:01 07/24/22 10:01 07/24/22 10:01 07/24/22 08:28 07/24/22 08:28 Period Temp Pulse Resp BP Sys/Menard Pulse Ox O2 Del Method O2 Flow Rate Last 24 Hr 37.3 C-37.6 C 81-112 13-27 122-202/60-110 84-100 Nasal Cannula-Room Air 2-97 Intake and Output 07/23/22 07/24/22 07/24/22 19:59 03:59 11:59 Intake Total 2061 1007 1809 Output Total 1932 Balance 2061 982 -124 Weight 68.81 kg Intake & Output: Intake & Output 07/23/22 07/24/22 07/24/22 19:59 03:59 11:59 Intake Total 2061 1007 1809 Output Total 1932 Balance 2061 982 -124 Weight 68.81 kg Intake: IV 2062 1008 1809 Sodium Chloride 0.9% 1,000 ml @ 1000 1231 125 mls/hr IV .Q8H [facility] Rx#: [id number] HumuLIN R 50 UNIT In Sodium 62 8 58 Chloride 0.9% 99.5 ml @ 7 UNIT/ HR 14 mls/hr IV DUR [facility] Rx#: [id number] Lactated Ringers 1,000 ml @ 1000 Wide Open IV BOLUS ONE Rx#: [id number] NaCl 0.9% W/KCl 20Meq 1000ML 1, 1000 000 ml @ 100 mls/hr IV .Q10H [facility] Rx#:[id number] Potassium Chloride 40 Meq In 520 Dextrose 5% in Water 500 ml @ 130 mls/hr IV UD PRN Rx#: [id number] Output: Urine Catheter Amount 1030 Void Amount 25 900 # of times incontinent of urine 1 3 Other: Urine Appearance Clear Clear Uretheral (Adorno) Clear Urine Color Bright Yellow Bright Yellow Uretheral (Adorno) Yellow Pale Urine Odor Strong Normal Uretheral (Adorno) Normal Stool Size Small Stool Color Brown Stool Consistency Soft Loose # Bowel Movements 1 General appearance: disheveled, mild distress and thin Head Head exam: Present normal inspection Eye Eye exam: Present EOMI Pupils: Present mydriatic ENT ENT exam: Present mucous membranes dry Neck Neck exam: Absent meningismus Respiratory Respiratory exam: Present rhonchi Cardiovascular Cardiovascular exam: Present normal rate and rhythm, +S1 and +S2 GI/Abdominal GI/Abdominal exam: Present normal bowel sounds and soft Additional comments: adorno in place Neurological Exam Additional comments: nonfocal Psychiatric Additional comments: flat poor insight Skin Skin exam: Present dry A/P Assessment and plan (1) Diabetic keto-acidosis: Assessment and plan: Slow improvement Status: Acute (2) CKD stage 4 due to type 1 diabetes mellitus: Status: Acute (3) Intractable cyclical vomiting with nausea: Status: Acute Comment: As above. I remain suspecious of cyclic vomiting from THC use > DM gastroparesis Tie-breaking nuclear med gastric emptying time as outpatient Has GI motility specialist in [place] (4) Renal failure (ARF), acute on chronic: Status: Acute Comment: Established pattern on N/V dehydration and AFR. Underlying T2DM with nephropathy. Losing additional nephron mass with each cycle of dehydration and pre renal insult to someone who already has decreased nephron mass from diabetes. (5) Acid-base disorder, mixed: Status: Acute Comment: Hypochloremic (chloride sensitive) metabolic alkalosis from gastic acid loss and a volume contraction related metabolic alkalosis, respiratory alkalosis. 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 Abandonment issues as he is adopted may be the root cause. 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 Social issues abound along with his self-destructive behavior despite the fact he has state of the art CGM and glucose pump equipment and the gastrict pacemeker. To keep along the current path fulfills [facility]'s definition of insanity. Time Spent With Patient Time: Total time spent is greater than 50% in coordination of care (as documented) at patient's floor/unit and/or counseling patient:
[2022-07-24] MEDS: INSULIN LISPRO 1 UNIT/0.01 ML UNIT SQ SCH ×4 (12:10→23:43)
--- NOTE | 2022-07-24 12:28 | XRay Report ---
CLINICAL INFORMATION: Hypoxia COMPARISON: None. TECHNIQUE: Portable FINDINGS: The heart size, mediastinum and pulmonary vessels are unremarkable. Right subclavian Port-A-Cath tip overlies the SVC. The lungs are clear. There are no effusions. The bones and soft tissues are within normal limits. IMPRESSION: Normal chest. Interpreted and Authenticated by: Demetrius Smart 07/24/22
[2022-07-24] MEDS: DILTIAZEM 30 MG TABLET PO SCH ×2 (13:12→22:07)
--- OUTSIDE RECORDS SUMMARY | 2022-07-24 16:33 | External Medical Summary | Clinical Summary ---
:1985 Author Organization [facility] Address [address] [place] [address] Care Team Providers Name Role Phone Pcp, Outside Primary Care Provider Unavailable Allergies Active Allergy Reactions Severity Noted Date Comments Metoclopramide 08/10/2019 Other reactio n(s): Other (See Comments) "Tardive Diskin esia per SO" Nsaids 06/03/2020 Other reaction( s): Not to take per Paint Spray Inspector Prochlorperazine Other High 11/29/2018 Other react ion(s): Other (See Comments) Neuroleptic mal ignant syndrome "Neuroleptic Ma lignant Syndrome, per SO" Silver Skin: Rash Medium 11/29/2018 Medications Medication Sig Dispensed Refills Start Date End Date Status promethazine 25 Inject 12.5 mg 0 10/04/2019 Active MG/ML solution intramuscularly every 6 hours as needed. melatonin 10 MG Take by mouth at 0 Active tablet bedtime as needed. ketamine 50 MG/ML [place] 50 mg in the 0 Active solution nostril 3 times a day as needed. Other Meds (See Take 10 mg by mouth. 0 Active Sig/Instructions) domperidone Multiple Take by mouth. 0 Activ e Vitamins-Minerals (MULTIVITAMIN ADULT OR) furosemide 20 MG take 1 tablet by 0 11/30/2019 Active tablet mouth once daily if needed for EDEMA/HYPERTENSIO... (REFER TO PRESCRIPTION NOTES). True Metrix Blood 3 times a day. 0 11/30/2019 Active Glucose Test strip lisinopril 5 MG Take 5 mg by mouth 0 11/30/2019 Active tablet daily. gabapentin 300 MG Take 2 capsules (600 360 capsule 3 0 Active capsuleIndications: mg) by mouth 2 times Diabetic a day. polyneuropathy associated with type 1 diabetes mellitus ([facility]) ondansetron 4 MG dissolve 1 tablet ON 60 tablet 1 03/28/2020 Active disintegrating TONGUE every 6 hours tabletIndications: if needed for nausea Diabetic gastroparesis associated with type 1 diabetes mellitus ([facility]) BD Luer-Urszula Syringe USE WITH 0 03/12/2020 Active 25G X 1" 3 ML PROMETHAZINE miscellaneous tadalafil 10 MG Take 1 tablet (10 90 tablet 3 06/03/2020 Active tabletIndications: mg) by mouth daily. Erectile dysfunction, unspecified erectile dysfunction type LORazepam 1 MG take 1-2 tablets by 0 09/12/2020 Active tablet mouth AT ONSET OF NAUSEA AND VOMITING atorvastatin 40 MG Take 1 tablet (40 90 tablet 3 10/23/2020 Active tabletIndications: mg) by mouth every Dyslipidemia evening. carVEDilol 3.125 MG Take 1 tablet (3.125 180 tablet 3 10/24/19 21 Active tabletIndications: mg) by mouth 2 times Essential a day with meals. hypertension cloNIDine 0.[address] 1 patch on the 12 patch 3 10/23/2020 Active MG/24HR skin every 7 days. patchIndications: apply 1 patch every Essential 7 days hypertension fluvoxaMINE 100 MG Take 1 tablet (100 90 tablet 3 10/23/2020 Active tabletIndications: mg) by mouth at Mood disorder ([facility]) bedtime. NovoLOG 100 UNIT/ML Use up to 70 units 20 mL 0 09/25/2021 Active injectionIndication daily via insulin s: Type 1 diabetes pump. mellitus with diabetic polyneuropathy ([facility]) Active Problems Problem Noted Date Diabetic nephropathy associated with type 1 diabetes m brit 09/23/2020 Presence of gastric pacemaker 03/13/2020 Dyslipidemia 11/21/2019 Type 1 diabetes mellitus with hyperglycemia 11/21/2019 Long-term insulin use 11/21/2019 Port-A-Cath in place 11/21/2019 Diabetic retinopathy associated with type 1 diabetes m brit 11/21/2019 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 diabetes mellitus 0 11/21/2019 CKD stage 3 due to type 1 diabetes mellitus 10/11/2019 Macular degeneration 10/11/2019 Diabetic gastroparesis associated with type 1 diabetes mellitus 11/29/2018 Type 1 diabetes mellitus with neurological manifestati ons 11/29/2018 Essential hypertension 11/29/2018 Immunizations Name Administration Dates Next Due Influenza quadrivalent PF 06/03/2020 Influenza, whole virus 03/18/2019 Pneumococcal polysaccharide PPSV23 (Pneumovax 23) 11/15/2018 Tdap 06/03/2020 Social History Tobacco Use Types Packs/Day Years Used Date Smoking Tobacco: Former Cigarettes Quit : 06/03/2012 Smokeless Tobacco: Never Alcohol Use Standard Drinks/Week Comments Not Currently 0 (1 standard drink = 0.6 oz pure alcoho l) Sex Assigned at Date Recorded Male 08/18/2020 8:31 PM PST Last Filed Vital Signs Vital Sign Reading Time Taken Comments Blood Pressure 171/101 06/03/2020 11:06 AM PST Pulse 65 06/03/2020 11:06 AM PST Temperature 36.4 C (97.5 F) 06/03/2020 11:06 AM PST Respiratory Rate 14 06/03/2020 11:06 AM PST Oxygen Saturation 97% 06/03/2020 11:06 AM PST Inhaled Oxygen Concentration - - Weight 98 kg (216 lb) 06/03/2020 11:06 AM PST Height 170 cm (5' 6.93") 08/21/2020 12:21 PM PST Body Mass Index 33.9 03/13/2020 9:40 AM PDT Plan of Treatment Health Maintenance Due Date Last Done Comments Hepatitis B Vaccine (1 of 3 - 1985 3-dose series) Hepatitis C Screening 1985 HIV Screening 2001 Diabetes Kidney Health 2004 Evaluation Medicare Annual Wellness 2004 Visit Pneumococcal Vaccine: 11/16/2019 11/15/2018 Pediatrics (0-5 years) and At-Risk Patients (6-64 years) (2 - PCV) Diabetes A1c 08/15/2020 02/13/2020, 01/15/2020, 08/11/2019 COVID-19 Vaccine (3 - Booster 01/12/2021 11/17/2020, for Pfizer series) 10/27/2020 Diabetes Eye Exam 01/13/2021 01/14/2020 Diabetes Foot Exam 01/14/2021 01/15/2020 Depression Screening (PHQ-2) 06/03/2021 06/03/2020, 06/03/2020 Influenza Vaccine (#1) 2022 06/03/2020, 03/18/2019 Lipid Disorders Screening 01/14/2025 01/15/2020 DTaP, Tdap, and Td Vaccines 06/03/2030 06/03/2020 (2 - Td or Tdap) Hepatitis A Vaccine Aged Out No longer el igible based on patient's age to complete this to pic Procedures Procedure Name Priority Date/Time Associated Diagnosis Comme nts PREMANAGE Routine 07/23/2022 10:29 PM PST Procedure Note - 07/23/2022 10:29 PM PSTThis note is in progress. Formatting of this note migh t be different from the original. Patient has visited an [facility] emergency department or has been hospitalized outside of [facility] --MOST RECENT VISIT-- Admit:07/23/22 22:28 Discharge: Location:[facility] Attending Provider:Aide rodriguez Encounter Type:Inpatient Major Class:Inpatient Chief Complaint:Gastroparesi s Diagnosis: Type 1 diabetes mellitus wit h diabetic nephropathy Type 1 diabetes mellitus wit h hyperglycemia Acute kidney failure, unspec ified Type 2 diabetes mellitus wit h ketoacidosis without coma Mixed disorder of acid-base balance Chronic kidney disease, unsp ecified ED/UCC VISIT TRACKING (3 MO. ) Visit Date Location [facility] Dx/Complaint -------- ------- ---- 07/23/2022 09:58 [facility] [place]. [place] Emergency Gastroparesis 06/22/2022 09:53 [facility] [place]. [place] Emergency n/v 06/04/2022 13:10 [facility] [place]. [place] Emergency -Chronic kidney disease, stage 4 (severe) 05/18/2022 09:36 [facility] [place]. [place] Emergency -Chronic kidney disease, unspecified -Cyclical vomiting syndrom e unrelated to migraine -Type 1 diabetes mellitus with diabetic chronic kidney disease -Alkalosis -Chronic kidney disease, s tage 3 unspecified -Chronic kidney disease, s tage 3b -Acute kidney failure, uns pecified INPATIENT VISIT TRACKING (1 MO.) Visit Date Location [facility] Dx/Complaint -------- ------- ---- 07/23/2022 22:28 [facility] [place]. [place] Inpatient -Type 1 diabetes mellitus with diabetic nephropathy -Type 1 diabetes mellitus with hyperglycemia -Acute kidney failure, uns pecified -Type 2 diabetes mellitus with ketoacidosis without coma -Mixed disorder of acid-ba se balance -Chronic kidney disease, u nspecified 06/22/2022 18:54 [facility] [place]. [place] Inpatient -Type 1 diabetes mellitus with hyperglycemia -Cannabis dependence, unco mplicated -Mixed disorder of acid-ba se balance -Type 1 diabetes mellitus with hyperglycemia -Depression, unspecified -Gastroparesis -Binge eating disorder -Depression, unspecified -Essential (primary) hyper tension -Nausea with vomiting, uns pecified -Nausea with vomiting, uns pecified -Gastro-esophageal reflux disease without esophagitis -Hyperosmolality and hyper natremia -Type 1 diabetes mellitus with diabetic nephropathy -Chronic kidney disease, s tage 4 (severe) -Type 1 diabetes mellitus with other specified complication -Type 1 diabetes mellitus with other specified complication -Anemia in chronic kidney disease -Gastroparesis -Type 1 diabetes mellitus with diabetic chronic kidney disease -Alkalosis -Chronic kidney disease, u nspecified -Hyperosmolality and hyper natremia -Type 1 diabetes mellitus with ketoacidosis without coma -Cannabis dependence, unco mplicated -Cyclical vomiting syndrom e unrelated to migraine -Type 1 diabetes mellitus with ketoacidosis without coma -Chronic kidney disease, u nspecified -Binge eating disorder -Anemia in chronic kidney disease -Cyclical vomiting syndrom e unrelated to migraine -Alkalosis -Acidosis, unspecified -Essential (primary) hyper tension -Chronic kidney disease, s tage 4 (severe) -Acidosis, unspecified -Gastro-esophageal reflux disease without esophagitis -Mixed disorder of acid-ba se balance -Acute kidney failure, uns pecified -Acute kidney failure, uns pecified ED VISIT COUNT (12 MO.) Visits Location ------ --------- [address] [id number] Total Note: Visits indicate total known visits. --CARE GUIDELINES-- (Below are the most recent c are guidelines entered by a Medicine care provider in [facility]. If Medicine guidelines do not exist in [facility], the most recent care guideline entered by an external hospital care provider is displayed.) Guidelines Source: [facility] Guidelines Date: 08/03/2021 Care Recommendation: Pt has current standing ord ers in same day to treat his gastroparesis in attempt to decrease his ED visits. Remind pt to use his same day vs ED. Pt continues to use marijuana. [facility] Security Events No recent Security Events cu rrently on file --CARE PROVIDERS-- CARE PROVIDERS Name Phone Type Service Aldair es ---- ----- ---- -- CLAUDIA SIEGEL [phone] Nurse Practitioner: Psychiatric/Mental Health Unknown - Current ${prc.content} PREMANAGE Routine 07/23/2022 10:03 AM PST Resu lts for this procedure are in the results section . PREMANAGE Routine 06/26/2022 9:15 AM PST Resul ts for this procedure are in the results section . PREMANAGE Routine 06/22/2022 5:31 PM PST Resul ts for this procedure are in the results section . PREMANAGE Routine 06/07/2022 2:07 PM PST Resul ts for this procedure are in the results section . PREMANAGE Routine 06/04/2022 9:00 PM PST Resul ts for this procedure are in the results section . PREMANAGE Routine 05/20/2022 2:51 PM PDT Resul ts for this procedure are in the results section . PREMANAGE Routine 05/18/2022 2:41 PM PDT Resul ts for this procedure are in the results section . from Last 3 Months Results PREMANAGE (07/23/2022 10:03 AM PST)Only the most recent of7 resultswithin the time period is included. Specimen (Source) Anatomical Collection Method Collection Time Re ceived Time Location / / Volume Laterality 07/23/2022 10:03 AM PST Narrative [facility] - 07/23/2022 10:03 AM PST Patient has visited an external emergency department or has been hospitalized outside of Medicine --MOST RECENT VISIT-- Admit:07/23/22 09:58 Location:[facility] Attending Provider:Angelique Mittal Encounter Type:Emergency Major Class:Emergency Chief Complaint:Gastroparesis Diagnosis: ED/UCC VISIT TRACKING (3 MO.) Visit Date Location [facility] Dx/Complaint -------- ------- ---- [facility] [place] [place] [facility]/22[facility]2022 09[facility]/v 06[facility]04/2022 13:10 [facility] Emergency -Chronic kidney disease, stage 4 (severe) 05/18/2022 09:36 [facility] Emergency -Cyclical vomiting syndrome unrelated to migraine -Type 1 diabetes mellitus with diabetic chronic kidney disease -Alkalosis -Chronic kidney disease, stage 3 unspecified -Chronic kidney disease, stage 3b -Acute kidney failure, unspecified -Chronic kidney disease, unspecified INPATIENT VISIT TRACKING (1 MO.) Visit Date Location [facility] Dx/Complaint -------- ------- ---- 06/22/2022 18:54 [facility] Inpatient -Nausea with vomiting, unspecified -Nausea with vomiting, unspecified -Gastro-esophageal reflux disease without esophagitis -Hyperosmolality and hypernatremia -Type 1 diabetes mellitus with diabetic nephropathy -Chronic kidney disease, stage 4 (severe) -Type 1 diabetes mellitus with other specified complication -Type 1 diabetes mellitus with other specified complication -Anemia in chronic kidney disease -Gastroparesis -Type 1 diabetes mellitus with diabetic chronic kidney disease -Alkalosis -Chronic kidney disease, unspecified -Hyperosmolality and hypernatremia -Type 1 diabetes mellitus with ketoacidosis without coma -Cannabis dependence, uncomplicated -Cyclical vomiting syndrome unrelated to migraine -Type 1 diabetes mellitus with ketoacidosis without coma -Chronic kidney disease, unspecified -Binge eating disorder -Anemia in chronic kidney disease -Cyclical vomiting syndrome unrelated to migraine -Alkalosis -Acidosis, unspecified -Essential (primary) hypertension -Chronic kidney disease, stage 4 (severe) -Acidosis, unspecified -Gastro-esophageal reflux disease without esophagitis -Mixed disorder of acid-base balance -Acute kidney failure, unspecified -Acute kidney failure, unspecified -Type 1 diabetes mellitus with hyperglycemia -Cannabis dependence, uncomplicated -Mixed disorder of acid-base balance -Type 1 diabetes mellitus with hyperglycemia -Depression, unspecified -Gastroparesis -Binge eating disorder -Depression, unspecified -Essential (primary) hypertension ED VISIT COUNT (12 MO.) Visits Location ------ --------- [address] [facility] [address] Total Note: Visits indicate total known visits . --CARE GUIDELINES-- (Below are the most recent care guidelin es entered by a Medicine care provider in [facility]. If Medicine guidelines do not exist in [facility], the most recent care guideline entered by an external hospital care provider is displayed.) Guidelines Source: [facility] spital Guidelines Date: 08/03/2021 Care Recommendation: Pt has current standing orders in same day to treat his gastroparesis in attempt to decrease his ED visits. Remind pt to use his same day vs ED. Pt continues to use mar ijuana. [facility] Security Events No recent Security Events currently on f ile --CARE PROVIDERS-- CARE PROVIDERS Name Phone Type Service Dates ---- ----- ---- CLAUDIA SIEGEL [phone] Nurse Practitioner: Psychiatric/Mental Health Unknown - Current ${prc.content} Procedure Note EXTERNAL ED PHYSICIAN - 07/23/2022Format ting of this note might be different from the original. Patient has visited an external emergenc y department or has been hospitalized outside of Medicine --MOST RECENT VISIT-- Admit:07/23/22 09:58 Location:[facility] Attending Provider:Angelique Mittal Encounter Type:Emergency Major Class:Emergency Chief Complaint:Gastroparesis Diagnosis: ED/UCC VISIT TRACKING (3 MO.) Visit Date Location [facility] [employer] -------- ------- ---- ------ ------ 07/23/2022 09:58 [facility] [employer] [place] Emergency Gastroparesis 06/22/2022 09:53 [facility] [employer] [place] Emergency n/v 06/04/2022 13:10 [facility] [employer] [place] Emergency -Chronic kidney disease, stage 4 (severe) 05/18/2022 09:36 [facility] [employer] [place] Emergency -Cyclical vomiting syndrome unrelated to migraine -Type 1 diabetes mellitus with diabeti c chronic kidney disease -Alkalosis -Chronic kidney disease, stage 3 unspe cified -Chronic kidney disease, stage 3b -Acute kidney failure, unspecified -Chronic kidney disease, unspecified INPATIENT VISIT TRACKING (1 MO.) Visit Date Location [facility] [employer] -------- ------- ---- ------ ------ 06/22/2022 18:54 [facility] [employer] [place] Inpatient -Nausea with vomiting, unspecified -Nausea with vomiting, unspecified -Gastro-esophageal reflux disease with out esophagitis -Hyperosmolality and hypernatremia -Type 1 diabetes mellitus with diabeti c nephropathy -Chronic kidney disease, stage 4 (shonna re) -Type 1 diabetes mellitus with other s pecified complication -Type 1 diabetes mellitus with other s pecified complication -Anemia in chronic kidney disease -Gastroparesis -Type 1 diabetes mellitus with diabeti c chronic kidney disease -Alkalosis -Chronic kidney disease, unspecified -Hyperosmolality and hypernatremia -Type 1 diabetes mellitus with ketoaci dosis without coma -Cannabis dependence, uncomplicated -Cyclical vomiting syndrome unrelated to migraine -Type 1 diabetes mellitus with ketoaci dosis without coma -Chronic kidney disease, unspecified -Binge eating disorder -Anemia in chronic kidney disease -Cyclical vomiting syndrome unrelated to migraine -Alkalosis -Acidosis, unspecified -Essential (primary) hypertension -Chronic kidney disease, stage 4 (shonna re) -Acidosis, unspecified -Gastro-esophageal reflux disease with out esophagitis -Mixed disorder of acid-base balance -Acute kidney failure, unspecified -Acute kidney failure, unspecified -Type 1 diabetes mellitus with hypergl ycemia -Cannabis dependence, uncomplicated -Mixed disorder of acid-base balance -Type 1 diabetes mellitus with hypergl ycemia -Depression, unspecified -Gastroparesis -Binge eating disorder -Depression, unspecified -Essential (primary) hypertension ED VISIT COUNT (12 MO.) Visits Location ------ --------- [address] [facility] 16 Total Note: Visits indicate total known visits . --CARE GUIDELINES-- (Below are the most recent care guidelin es entered by a Medicine care provider in [facility]. If Medicine guidelines do not exist in [facility], the most recent care guideline entered by an external hospital care provider is displayed.) Guidelines Source: [facility] spital Guidelines Date: 08/03/2021 Care Recommendation: Pt has current standing orders in same day to treat his gastroparesis in attempt to decrease his ED visits. Remind pt to use his same day vs ED. Pt continues to use marijuan aMaris [facility] Security Events No recent Security Events currently on f ile --CARE PROVIDERS-- CARE PROVIDERS Name Phone Type Service Dates ---- ----- ---- CLAUDIA SIEGEL [phone] Nurse Pract itioner: Psychiatric/Mental Health Unknown - Current ${prc.content} External Ed Physician OTHER Performing Organization Address City/State/ZIP Code Phon e Number [facility] from Last 3 Months Insurance Payer Benefit Plan Subscriber ID Effective Phone Address Typ e / Group Dates SHAMIKA WICK [id number] 2020-Prese [phone] [address] [facility] [place] [id number] [place] [address] [place] MEDICA[place] [employer] MCAID [id number] 2019-Prese [phone] [address] Medicaid nt [address] [place] [address] Mauri Levine Personal/Family Self 1985 [address] ([address]) [place] [id number] Care Teams Grinder Lap Relationship Specialty Start Date End Date Pcp, Outside PCP - General 04/08/21 Identifies patients who have a Non [facility] Medicine PCP
--- OUTSIDE RECORDS SUMMARY | 2022-07-24 16:33 | External Medical Summary | Encounter Summary ---
:1985 Author Organization [facility] Address [address] [place] [address] Care Team Providers Name Role Phone Pcp, Outside Primary Care Provider Unavailable Reason for Visit Reason Onset Date Comments Refill Request Novolog - to [facility] Pha rmD Appointment 09/18/2021 Appointment 09/21/2021 Encounter Details Date Type Department Care Team Description 09/16/2021 Refill [facility] Krishna Sharma MD Refill Request [facility] Address Alert - Do Not (No volog - to [facility] Appointment; [address] [place] [phone] Social History Tobacco Use Types Packs/Day Years Used Date Smoking Tobacco: Former Cigarettes Quit : 06/03/2012 Smokeless Tobacco: Never Alcohol Use Standard Drinks/Week Comments Not Currently 0 (1 standard drink = 0.6 oz pure alcoho l) Sex Assigned at Date Recorded Male 08/18/2020 8:31 PM PST documented as of this encounter Miscellaneous Notes Telephone Encounter - Debora Greenfield PSS/PSR - 09/25/2021 10:55 AM PST Sent [email or web address] message (3rd attempt). Closing TE Telephone Encounter - Debora Greenfield PSS/PSR - 09/21/2021 9:44 AM PST Called pt to schedule f/u, no answer, LVM to call back Telephone Encounter - Debora Greenfield PSS/PSR - 09/18/2021 2:23 PM PST Called pt to schedule f/u, no answer, LVM to call back Telephone Encounter - Иван Matos, Neema - 09/18/2021 10:36 AM PST We are contacting you because the provider Flakita Sharma is no longer at the clinic and patient has not established care with a new provider. This falls outside of the Refill Authorization Centers protocols. Please have you or your staff inform the patient and schedule an appointment if necessary. documented in this encounter Plan of Treatment Not on filedocumented as of this encounter Visit Diagnoses Diagnosis Type 1 diabetes mellitus with diabetic p olyneuropathy (HCC) Type I (juvenile type) diabetes mellitus with neurological manifestations, not stated as uncontrolled documented in this encounter Additional Health Concerns Assessment Noted Time PHQ-9 Depression Total Score: 9 06/03/2020 11:45 AM PS T documented as of this encounter Care Teams Business Owner/Engineer Relationship Specialty Start Date End Date Pcp, Outside PCP - General 04/08/21 Identifies patients who have a Non Medicine PCP documented as of this encounter
--- OUTSIDE RECORDS SUMMARY | 2022-07-24 16:33 | External Medical Summary | Encounter Summary ---
:1985 Author Organization [facility] Address [address] [place] [address] Care Team Providers Name Role Phone Quinten Prasad MD Primary Care Provider Reason for Visit Reason Onset Date Comments Appointment 03/26/2021 Encounter Details Date Type Department Care Team Description 03/26/2021 Telephone [facility] Krishna Sharma MD Appointment [facility] Address Alert - Do Not [address] [place] [address] Social History Tobacco Use Types Packs/Day Years Used Date Smoking Tobacco: Former Cigarettes Quit : 06/03/2012 Smokeless Tobacco: Never Alcohol Use Standard Drinks/Week Comments Not Currently 0 (1 standard drink = 0.6 oz pure alcoho l) Sex Assigned at Date Recorded Male 08/18/2020 8:31 PM PST documented as of this encounter Miscellaneous Notes Telephone Encounter - Deidre Asencio PSS/PASCUAL - 03/26/2021 2:46 PM PDT lvm with pt to call and schedule with new provider Ccr: when pt calls back pls connect to clinic for scheduling assistance as they need Chelsy to new provider documented in this encounter Plan of Treatment Not on filedocumented as of this encounter Visit Diagnoses Not on filedocumented in this encounter Additional Health Concerns Assessment Noted Time PHQ-9 Depression Total Score: 9 06/03/2020 11:45 AM PS T documented as of this encounter Care Teams Research Biologist Relationship Specialty Start Date End Date Quinten Prasad MD PCP - General Family Practice 06/03/20 04/07/21 [address] [place] [address] documented as of this encounter
--- OUTSIDE RECORDS SUMMARY | 2022-07-24 16:33 | External Medical Summary | Encounter Summary ---
:1985 Author Organization [facility] Address [address] [place] [address] Care Team Providers Name Role Phone Pcp, Outside Primary Care Provider Unavailable Reason for Visit Reason Onset Date Comments Refill Request 11/09/2021 Insulin refused/be s een Encounter Details Date Type Department Care Team Description 11/09/2021 Refill [facility] Krishna Sharma MD Refill Request [facility] Address Alert - Do Not (In sulin refused/be [place] [facility] seen) [address] [place] [phone] Social History Tobacco Use Types Packs/Day Years Used Date Smoking Tobacco: Former Cigarettes Quit : 06/03/2012 Smokeless Tobacco: Never Alcohol Use Standard Drinks/Week Comments Not Currently 0 (1 standard drink = 0.6 oz pure alcoho l) Sex Assigned at Date Recorded Male 08/18/2020 8:31 PM PST documented as of this encounter Plan of Treatment Not on [...] documented as of this encounter Care Teams Machine Bander And Cellophaner Relationship Specialty Start Date End Date Pcp, Outside PCP - General 04/08/21 Identifies patients who have a Non Medicine PCP documented as of this encounter
--- OUTSIDE RECORDS SUMMARY | 2022-07-24 16:33 | External Medical Summary | Encounter Summary ---
:1985 Author Organization [facility] Address [address] [place] [address] Care Team Providers Name Role Phone Pcp, Outside Primary Care Provider Unavailable Reason for Referral Specialty Diagnoses / Procedures Referred By Contact Refer red To Contact [facility] [address] [phone] Referral ID Status Reason Start Date Expiration Date Visits Requ ested Visits Authorized Encounter Details Date Type Department Care Team Description 08/28/[address] [facility] Primary Care Outside, Boris correa [facility] Provider [address] [address] [place] [phone] Social History Tobacco Use Types Packs/Day Years Used Date Smoking Tobacco: Former Cigarettes Quit : 06/03/2012 Smokeless Tobacco: Never Alcohol Use Standard Drinks/Week Comments Not Currently 0 (1 standard drink = 0.6 oz pure alcoho l) Sex Assigned at Date Recorded Male 08/18/2020 8:31 PM PST documented as of this encounter Plan of Treatment Not on filedocumented as of this encounter Procedures Procedure Name Priority Date/Time Associated Diagnosis Comme nts REFERRAL TO ER/URGENT CARE Routine 08/18/2021 documented in this encounter Results Referral to ER/Urgent Care (08/18/2021) Narrative This result has an attachment that is no t available. Referring Provider Outside OUTPATIENT REFERRAL ORDERAB LES Performing Organization Address City/State/ZIP Code Phon e Number OUTSIDE REFERENCE PERFORMING LAB documented in this encounter Visit Diagnoses Not on filedocumented in this encounter Additional Health Concerns Assessment Noted Time PHQ-9 Depression Total Score: 9 06/03/2020 11:45 AM PS T documented as of this encounter Care Teams Truck Shop Mechanic Relationship Specialty Start Date End Date Pcp, Outside PCP - General 04/08/21 Identifies patients who have a Non Medicine PCP documented as of this encounter
--- OUTSIDE RECORDS SUMMARY | 2022-07-24 16:34 | External Medical Summary | Encounter Summary ---
:1985 Author Organization [facility] Address [address] [place] [address] Care Team Providers Name Role Phone Pcp, None Primary Care Provider Unavailable Quinten Prasad MD Primary Care Provider Reason for Visit Reason Onset Date Comments Appointment 05/15/2020 Encounter Details Date Type Department Care Team Description 05/15/2020 Telephone [facility] Krishna Sharma MD Appointment [facility] Address Alert - Do Not [address] [place] [phone] Social History Tobacco Use Types Packs/Day Years Used Date Smoking Tobacco: Never Smokeless Tobacco: Never Alcohol Use Standard Drinks/Week Comments Not Currently 0 (1 standard drink = 0.6 oz pure alcoho l) Sex Assigned at Date Recorded Male 08/18/2020 8:31 PM PST documented as of this encounter Miscellaneous Notes Telephone Encounter - Laura Mahoney - 05/15/2020 9:44 AM PDT Called pt to schedule f/u with Dr. Sharma in 3 months, left . documented in this encounter Plan of Treatment Not on filedocumented as of this encounter Visit Diagnoses Not on filedocumented in this encounter Additional Health Concerns Assessment Noted Time PHQ-9 Depression Total Score: 9 01/15/2020 2:00 PM PDT documented as of this encounter Care Teams Stamp Classifier Relationship Specialty Start Date End Date Pcp, None PCP - General 07/26/19 06/02/20 Identifies patients without a PCP or unassigned Quinten Prasad MD PCP - General Family Practice 06/03/20 04/07/21 [address] [place] [address] documented as of this encounter
--- OUTSIDE RECORDS SUMMARY | 2022-07-24 16:34 | External Medical Summary | Encounter Summary ---
:1985 Author Organization [facility] Address [address] [place] [address] Care Team Providers Name Role Phone Quinten Prasad MD Primary Care Provider Encounter Details Date Type Department Care Team Description 08/20/2020 Orders Only [facility] Covid-19 Pr e-procedure lab exam (Primary Dx); Clinic Contact with and (suspected) exposure to other viral communicable diseases [place] [address] Social History Tobacco Use Types Packs/Day Years Used Date Smoking Tobacco: Former Cigarettes Quit : 06/03/2012 Smokeless Tobacco: Never Alcohol Use Standard Drinks/Week Comments Not Currently 0 (1 standard drink = 0.6 oz pure alcoho l) Sex Assigned at Date Recorded Male 08/18/2020 8:31 PM PST COVID-19 Exposure Response Date Recorded In the last month, have you been in contact with No / Unsure 08/20/2020 11:09 AM PST someone who was confirmed or suspected to have Coronavirus / COVID-19? documented as of this encounter Progress Notes Macy Desai RN - 08/20/2020 11:30 AM PST Patient was seen on 08/20/2020 at the [facility] drive up site where a sample of dual nasal pharyngeal collection was taken. The specimen was sent to the lab for COVID-19 testing. Patient will be informed of test results within 48 hours. Patient received informational instructions on self-care. The specimen was collected by: ES documented in this encounter Plan of Treatment Not on filedocumented as of this encounter Procedures Procedure Name Priority Date/Time Associated Diagnosis Comme nts COVID-19 CORONAVIRUS Routine 08/20/2020 1:25 PM Pre-procedure lab Results for this QUALITATIVE PCR PST exam procedure are in Contact with and the results (suspected) exposure section . to other viral communicable diseases documented in this encounter Results COVID-19 Coronavirus Qualitative PCR (08/20/2020 1:25 PM PST) Component Value Ref Test Analysis Performed Pathologis t Range Method Time At Signature COVID-19 Nasopharyngeal 08/20/2020 MEDICINE Coronavirus Qual Swab 12:01 PM VIROLOGY PCR Specimen Type PST LAB, [address] [place] COVID-19 None detected NDET 08/20/2020 VIROLOGY, Coronavirus Qual 8:39 PM [place] PCR Result PST COVID-19 This is a 08/20/2020 VIROLOGY, Coronavirus Qual negative result. 8:39 PM [place] PCR Laboratory PST Interpretation testing alone cannot rule out infection, particularly in the presence of clinical risk factors such as symptoms or exposure history. Comment: Testing performed using the [employer] SARS -CoV-2 Real-time RT-PCR assay. See https://testguide.labmed..[facility]/NCVQLT f or details. This test is not yet approved or cleared by the [place] FDA. When there are no FDA-approved or cleared tests suellen ilable, and other criteria are met, FDA can make tests available under an em ergency access mechanism called an Emergency Use Authorization (EUA). The EUA for this test is supported by [facility] of Health and Human Service's (HHS's) declaration that circu mstances exist to justify the emergency use of in vitro diagnostics fo r the detection and/or diagnosis of the virus that causes COVID-19. This EUA will remain in effect (meaning this test can be used) for the duration of the COVID-19 declaration jus tifying emergency of IVDs, unless it is terminated or revoked by FDA (after w hich the test may no longer be used). Specimen Anatomical Collection Method Collection Time Receive d Time (Source) Location / / Volume Laterality Nasal swab 08/20/2020 1:25 PM 1:25 PST PM PST Paola Hoffman MD LAB BODY FLUIDS AND STOOLS O RDERABLES Performing Organization Address City/State/ZIP Code Phon e Number LAB MED, VIROLOGY [address] [place] [phone] [id number] MEDIC[facility]OLOGY LAB, [address] [facility] [place] [phone] [address] [place] [address] V[place]Y, [place] [address] [place] [address] [address] documented in this encounter Visit Diagnoses Diagnosis Pre-procedure lab exam - Primary Pre-procedural laboratory examination Contact with and (suspected) exposure to other viral communicable diseases documented in this encounter Additional Health Concerns Assessment Noted Time PHQ-9 Depression Total Score: 9 06/03/2020 11:45 AM PS T documented as of this encounter Care Teams Heat And Frost Insulator Relationship Specialty Start Date End Date Quinten Prasad MD PCP - General Family Practice 06/03/20 04/07/21 [address] [place] [address] documented as of this encounter
--- OUTSIDE RECORDS SUMMARY | 2022-07-24 16:34 | External Medical Summary | Encounter Summary ---
:1985 Author Organization [facility] Address [address] [place] [address] Care Team Providers Name Role Phone Quinten Prasad MD Primary Care Provider Reason for Visit Reason Onset Date Comments Appointment 10/06/2020 Medicare Annual Well ness Visit Scheduling Encounter Details Date Type Department Care Team Description 10/06/2020 Telephone [facility] Primary Karla Blanco Appoi ntment (Medicare Care Family Medicine PSS/PSR Annual Wellness Visit at [facility] - Scheduling) [address] [place] [phone] [address] [phone] [place], [place] [address] (Wo rk) Social History Tobacco Use Types Packs/Day Years Used Date Smoking Tobacco: Former Cigarettes Quit : 06/03/2012 Smokeless Tobacco: Never Alcohol Use Standard Drinks/Week Comments Not Currently 0 (1 standard drink = 0.6 oz pure alcoho l) Sex Assigned at Date Recorded Male 08/18/2020 8:31 PM PST documented as of this encounter Miscellaneous Notes Telephone Encounter - Karla Blanco PSS/PSR - 10/14/2020 11:59 AM PDT Spoke to Mauri via phone regarding AWV. He was interested in doing this via telemedicine but it's his first AWV so it has to be in-person. He is in process of moving to [facility] and was hoping to follow-up via telemedicine until he finds a new doctor. scheduled him for next with Dr.Shanice. Closing TE. Telephone Encounter - Karla Blanco PSS/PSR - 10/06/2020 10:19 AM PDT AWV outreach started via [facility]. documented in this encounter Plan of Treatment Not on filedocumented as of this encounter Visit Diagnoses Not on filedocumented in this encounter Additional Health Concerns Infection Onset Date Last Indicated Resolved Time R/O COVID-19 10/09/2020 10/09/2020 11/20/2020 7:56 PM PDT Assessment Noted Time PHQ-9 Depression Total Score: 9 06/03/2020 11:45 AM PS T documented as of this encounter Care Teams Line Maintenance Technician Relationship Specialty Start Date End Date Quinten Prasad MD PCP - General Family Practice 06/03/20 04/07/[address] [place] [id number] documented as of this encounter
--- OUTSIDE RECORDS SUMMARY | 2022-07-24 16:34 | External Medical Summary | Encounter Summary ---
:1985 Author Organization [facility] Address [address] [place] [address] Care Team Providers Name Role Phone Pcp, None Primary Care Provider Unavailable Encounter Details Date Type Department Care Team Description 02/13/[address] En[address] [facility] Lab Med HOV [address] [place] [address] Social History Tobacco Use Types Packs/Day Years [...] / COVID-19? documented as of this encounter Medications at Time of Discharge Medication Sig Dispensed Refills Start Date End Date furosemide 20 MG take 1 tablet by mouth 0 020 tablet once daily if needed for EDEMA/HYPERTENSIO... (REFER TO PRESCRIPTION NOTES). gabapentin 300 MG Take 2 capsules (600 360 capsule 3 020 capsuleIndications: mg) by mouth 2 times a Diabetic day. 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 lisinopril 5 MG Take 5 mg by mouth 0 11/30/2019 tablet daily. melatonin 10 MG Take by mouth at 0 tablet bedtime as needed. Multiple Take by mouth. 0 Vitamins-Minerals (MULTIVITAMIN ADULT OR) Other Meds (See Take 10 mg by mouth. 0 Sig/Instructions) domperidone promethazine 25 MG/ML Inject 12.5 mg 0 10/04/2019 solution intramuscularly every 6 hours as needed. True Metrix Blood 3 times a day. 0 11/30/2019 Glucose Test strip atorvastatin 40 MG take 1 tablet by mouth 90 tablet 3 12/0610/23/2020 tabletIndications: every evening Dyslipidemia carVEDilol 3.125 MG take 1 tablet by mouth 180 tablet 1 10/1610/23/2020 tabletIndications: twice a day with meals Essential hypertension cloNIDine 0.1 MG/24HR apply 1 patch every 7 12 patch 3 10/23/2020 patchIndications: days Essential hypertension fluvoxaMINE 100 MG Take 1 tablet (100 mg) 90 tablet 3 01/1403/28/2020 tabletIndications: by mouth at bedtime. Mood disorder (HCC) LORazepam 0.5 MG Take 0.5 mg by mouth 3 0 09/23/2020 tablet times a day as needed. NovoLOG 100 UNIT/ML Inject 55 Units under 2 vial 11 10/1006/26/2020 injectionIndications: the skin daily. Use Type 1 diabetes with insulin pump. mellitus with diabetic polyneuropathy (HCC) ondansetron 4 MG dissolve 1 tablet ON 60 tablet 1 0 03/28/2020 disintegrating TONGUE every 6 hours tabletIndications: if needed for nausea Diabetic gastroparesis associated with type 1 diabetes mellitus (HCC) tadalafil 10 MG Take 5 mg by mouth 0 1 08/03/2019 tablet daily. documented as of this encounter Plan of Treatment Not on filedocumented as of this encounter Visit Diagnoses Not on filedocumented in this encounter Additional Health Concerns Assessment Noted Time PHQ-9 Depression Total Score: 9 01/15/2020 2:00 PM PDT documented as of this encounter Care Teams Technical Communication Teacher Relationship Specialty Start Date End Date Pcp, None PCP - General 07/26/19 06/02/20 Identifies patients without a PCP or unassigned documented as of this encounter
--- OUTSIDE RECORDS SUMMARY | 2022-07-24 16:34 | External Medical Summary | Encounter Summary ---
:1985 Author Organization [facility] Address [address] [place] [address] Care Team Providers Name Role Phone Quinten Prasad MD Primary Care Provider Reason for Referral Specialty Visit (Routine) - Closed Specialty Diagnoses / Procedures Referred By Contact Refer red To Contact Surgery Diagnoses Problem with vascular access Quinten Prasad MD [facility] [address] [place] [address] [place] [address], [address] [place], [place] [address] Phone: Fax: Referral ID Status Reason Start Date Expiration Date Visits V isits Requested Authorized [id number] Closed Specialty 06/03/2020 06/03/2021 99 99 Services Required Scheduling Instructions Referral to: [facility] (POS [id number]) [phone] ----Please be aware that while I, as you r health care provider, have identified this referral as medically indicated, I canno t guarantee your insurance plan will cover it. I recommend you contact your insuran ce carrier to make sure this is a covered service they will pay for. pecialty Visit (Routine) - Closed Specialty Diagnoses / Procedures Referred By Contact Refer red To Contact Neurology Med Diagnoses Syncope, unspecified syncope type Quinten Prasad MD [facility] [address] [place] [address] - [facility] [place], [place] [address] Phone: Fax: Referral ID Status Reason Start Date Expiration Date Visits V isits Requested Authorized [id number] Closed Specialty 06/03/2020 06/03/2021 99 99 Services Required Scheduling Instructions Referral to: [facility] (POS [id number]) [phone] ----Please be aware that while I, as you r health care provider, have identified this referral as medically indicated, I canno t guarantee your insurance plan will cover it. I recommend you contact your insuran ce carrier to make sure this is a covered service they will pay for. Reason for Visit Reason Comments Other shortness of breath, unconsc iousness, groggy, pt states 1 episode Encounter Details Date Type Department Care Team Description 06/03/2020 Office Visit Medicine Primary Quinten Prasad MD Dx: Syncope, Care Family Medicine [address] unsp ecified syncope at [facility] type (Primary Dx) [address] [place] [address] [place], [place] [phone] (Wo rk) [phone] Social History Tobacco Use Types Packs/Day Years Used Date Smoking Tobacco: Former Cigarettes Quit : 06/03/2012 Smokeless Tobacco: Never Alcohol Use Standard Drinks/Week Comments Not Currently 0 (1 standard drink = 0.6 oz pure alcoho l) Sex Assigned at Date Recorded Male 08/18/2020 8:31 PM PST documented as of this encounter Last Filed Vital Signs Vital Sign Reading Time Taken Comments Blood Pressure 171/101 06/03/2020 11:06 AM PST Pulse 65 06/03/2020 11:06 AM PST Temperature 36.4 C (97.5 F) 06/03/2020 11:06 AM PST Respiratory Rate 14 06/03/2020 11:06 AM PST Oxygen Saturation 97% 06/03/2020 11:06 AM PST Inhaled Oxygen Concentration - - Weight 98 kg (216 lb) 06/03/2020 11:06 AM PST Height - - Body Mass Index 33.9 03/13/2020 9:40 AM PDT documented in this encounter Patient Instructions Patient InstructionsQuinten Prasad MD - 06/03/2020 11:00 AM PST [facility] [phone] Take blood pressure measurements Your goal BP <130/80 (120s/70s) documented in this encounter Progress Notes Quinten Prasad MD - 06/03/2020 11:00 AM PST Family Medicine Clinic Note Chief Complaint 34 year old M w/ DM1 p/w syncope. History of Present Illness The patient is here with his partner for syncope. He has had two recent episodes, the first while hospitalized for gastric pacemaker placement with dyspnea proceeded by chest pounding and then passing out with possible tonic- clonic movements and post-ictal state. He denies tongue biting or incontinence; he was placed on telemetry with NL results. More recently, he had another episode of dyspnea while lying flat with palpitations, tunnel vision, and LOC for an unknown period of time with post- ictal state. Neither of these episodes occurred whilechanging position, though he has had orthostasis in the past. Problem list and medications reviewed and updated today as documented in the electronic health record. Review of Systems Constitutional: Negative. Endocrine: Negative. Physical Exam Blood pressure (!) 171/101, pulse 65, temperature 97.5 F (36.4 C), temperature source Temporal, resp. rate 14, weight 216 lb (98 kg), SpO2 97 %. Gen: AAOx3, in NAD, resting comfortably HEENT: NC/AT, EOMI, PER Resp: no increased work of breathing Ext: moving 4 ext EKG NSR @ 68, normal axis, no acute ischemic changes Assessment/Plan 34 year old M p/w: 1. Syncope, unspecified syncope type Non-positional syncope with seizure-like symptoms. EKG NL today and previous telemetry NL. Will refer to neurology. Can also consider TTE. - EKG 12-LEAD - REFERRAL TO NEUROLOGY 2. Essential hypertension Defer to renal; has upcoming appointment. 3. Erectile dysfunction, unspecified erectile dysfunction type Refill. - tadalafil 10 MG tablet; Take 1 tablet (10 mg) by mouth daily. Dispense: 90 tablet; Refill: 3 4. Problem with vascular access Referral for port placement. - REFERRAL TO GENERAL SURGERY 5. Need for vaccination - influenza vaccine quadrivalent PF (adult) 0.5 mL IM - [id number] - Tdap vacc (adult) 0.5 mL IM - [id number] Follow-up: SHERINE Prasad MD Family Medicine [facility] Charlene Weller [facility] - 06/03/2020 11:00 AM PST Patient Rooming (in-clinic or Telemed): iN CLINIC Reason for Visit: Chief Complaint Patient presents with Other shortness of breath, unconsciousness, groggy, pt states 1 episode Refills? NO Referral? NO Letter or Form? NO Lab Results? NO HEALTH MAINTENANCE: Has the patient had this done since their last visit? Cervical screening/PAP: N/A Mammo: N/A Colon Screen: N/A Have you seen a specialist since your last visit: No Vaccines Due? Yes, see below HM Due: Health Maintenance Topic Date Due Hepatitis C Screening 1985 HIV Screening 2001 DTaP, Tdap, and Td Vaccines (1 - Tdap) 2005 Hepatitis B Vaccine (1 of 3 - Risk 3-dose series) 2005 Influenza Vaccine (1) 04/17/2020 Diabetes A1c 08/15/2020 Diabetes Nephropathy: Kidney Disease Monitoring 01/03/2021 Diabetes Eye Exam 01/13/2021 Depression Screening (PHQ-2) 01/14/2021 Diabetes Foot Exam 01/14/2021 Pneumococcal Vaccine: Pediatrics (0-5 years) and At-Risk Patients (6-64 years) Completed Hepatitis A Vaccine Aged Out PCP Verified? Yes, Quinten Prasad MD Vaccine Screening Questions Heliotherapist: No 1. Are you allergic to Latex? NO 2. Have you had a serious reaction or an allergic reaction to a vaccine? NO 3. Currently have a moderate or severe illness, including fever? NO 4. Ever had a seizure or any neurological problem associated with a vaccine? (DTaP/TDaP/DTP pertinent) NO 5. Is patient receiving any live vaccinations today? (Varicella-Chickenpox, MMR-Measles/Mumps/Rubella, Zoster-Shingles, Flumist, Yellow Fever) NOTE: oral rotavirus is exempt NO If YES to any of the questions above - Do NOT give vaccine. Consult with RN or provider in clinic. (#5 can be YES if all Live vaccine questions are answered NO) If NO to all questions above - Patient may receive vaccine. 6. Do you need to receive the Flu vaccine today? YES - Additional Flu Questions Flu Vaccine Screening Questions: Ever had a serious allergic reaction to eggs? NO Ever had Guillain-Beatty syndrome associated with a vaccine? NO Less than 6 months old? NO If YES to any of the Flu questions above - NO Flu Vaccine to be given. Patient may consult provider as needed. If NO to all questions above - Patient may receive Flu Shot (IM) Is the patient requesting Flumist? NO If between 6 months and 8 years of age, was flu vaccine received last year? N/A If NO to above question: Children who are receiving influenza vaccine for the first time - administer 2 doses of the current influenza vaccine ( by at least 4 weeks). All patients are encouraged to wait 15 minutes before leaving after receiving any vaccine. VIS given 06/03/2020 by Charlene Weller CMA. Vaccine given today without initial adverse effect. YES Charlene Weller CMA documented in this encounter Plan of Treatment Scheduled Referrals Name Type Priority Associated Diagnoses Order S chedule REFERRAL TO NEUROLOGY Referral Routine Syncope, unspecifie d Ordered: 06/03/2020 syncope type REFERRAL TO GENERAL Referral Routine Problem with vascular Ordered: 06/03/2020 SURGERY access documented as of this encounter Procedures Procedure Name Priority Date/Time Associated Diagnosis Comme nts EKG 12 LEAD Routine 06/03/2020 11:36 AM Syncope, unspecified Results for this PST syncope type procedure are i n the results section. documented in this encounter Results EKG 12-Lead (06/03/2020 11:36 AM PST) [facility] gist Method Time Signature Ventricular 68 BPM UWM EKG Rate Atrial Rate 68 BPM UWM EKG P-R Interval 166 ms UWM EKG QRS Duration 80 ms UWM EKG Q-T Interval 432 ms UWM EKG QTC Calculation 459 ms UWM EKG P Kula 52 degrees UWM EKG R Kula 63 degrees UWM EKG T Kula 102 degrees UWM EKG Diagnosis NORMAL SINUS RHYTHM UWM EKG WITHIN NORMAL LIMITS NO PREVIOUS ECGS AVAILABLE Confirmed by HARRISON FLORES MD ([id number]) on 06/04/2020 9:22:06 PM Specimen Anatomical Collection Method Collection Time Receive d Time (Source) Location / / Volume Laterality 06/03/2020 11:36 06/04/2020 9:22 AM PST PM PST Quinten Prasad MD ECG ORDERABLES Performing Organization Address City/State/ZIP Code Phon e Number UWM EKG documented in this encounter Visit Diagnoses Diagnosis Syncope, unspecified syncope type - Prim matti Essential hypertension Unspecified essential hypertension Erectile dysfunction, unspecified erecti le dysfunction type Problem with vascular access Need for vaccination Need for prophylactic vaccination and in oculation against unspecified single disease documented in this encounter Additional Health Concerns Assessment Noted Time PHQ-9 Depression Total Score: 9 06/03/2020 11:45 AM PS T documented as of this encounter Care Teams Lunchroom Attendant Relationship Specialty Start Date End Date Quinten Prasad MD PCP - General Family Practice 06/03/20 04/07/21 [address] [place] [address] documented as of this encounter
--- OUTSIDE RECORDS SUMMARY | 2022-07-24 16:34 | External Medical Summary | Encounter Summary ---
:[address] [facility] Address [address] [place] [address] Care Team Providers Name Role Phone Quinten Prasad MD Primary Care Provider Reason for Visit Reason Onset Date Comments Wellness 02/04/2021 Eligible for Medicar e AWV Encounter Details Date Type Department Care Team Description 02/04/2021 Telephone [facility] Primary Pearl Hoskins Wel lness (Eligible for Care Family Medicine PSS/PSR Medicare AWV) at [facility] ADDRESS [address] [place] [address] Social History Tobacco Use Types Packs/Day Years Used Date Smoking Tobacco: Former Cigarettes Quit : 06/03/2012 Smokeless Tobacco: Never Alcohol Use Standard Drinks/Week Comments Not Currently 0 (1 standard drink = 0.6 oz pure alcoho l) Sex Assigned at Date Recorded Male 08/18/2020 8:31 PM PST documented as of this encounter Miscellaneous Notes Telephone Encounter - Pearl Hoskins PSS/PSR - 02/05/2021 11:[address] Prasad we will keep this patient empanelled until he establishes with a new PCP Closing TE - no outreach needed Telephone Encounter - Pearl Hoskins PSS/PSR - 02/04/2021 12:55 PM PDT No outreach needed. After review of the patients chart he is transfering care outside of , but hasnot yet established with a PCP in his new locating. See TE 01/15/2021 - patient declined appt for hospital discharge f/u with Dr Prasad Patient has moved to [facility] per OV notes on 10/23/2020 documented in this encounter Plan of Treatment Not on filedocumented as of this encounter Visit Diagnoses Not on filedocumented in this encounter Additional Health Concerns Assessment Noted Time PHQ-9 Depression Total Score: 9 06/03/2020 11:45 AM PS T documented as of this encounter Care Teams Circle Shear Operator Relationship Specialty Start Date End Date Quinten Prasad MD PCP - General Family Practice 06/03/20 04/07/21 [address] [place] [address] documented as of this encounter
--- OUTSIDE RECORDS SUMMARY | 2022-07-24 16:34 | External Medical Summary | Encounter Summary ---
:1985 Author Organization [facility] Address [address] [place] [address] Care Team Providers Name Role Phone Quinten Prasad MD Primary Care Provider Reason for Visit Reason Onset Date Comments Medication Management 06/26/2020 Encounter Details Date Type Department Care Team Description 06/26/2020 Telephone [facility] Jomar Russell PharmD Medication Management [facility] [address] [place] [phone] Social History Tobacco Use Types Packs/Day Years Used Date Smoking Tobacco: Former Cigarettes Quit : 06/03/2012 Smokeless Tobacco: Never Alcohol Use Standard Drinks/Week Comments Not Currently 0 (1 standard drink = 0.6 oz pure alcoho l) Sex Assigned at Date Recorded Male 08/18/2020 8:31 PM PST documented as of this encounter Miscellaneous Notes Telephone Encounter - Jomar Russell PharmD - 06/26/2020 10:10 AM PST Novolog Rx updated Telephone Encounter - Lidia Piper CMA - 06/26/2020 9:09 AM PST Forwarding to PharmD for f/u Telephone Encounter - Donna Shannon - 06/26/2020 8:33 AM PST RETURN CALL: Voicemail - Detailed Message SUBJECT: Medication Questions NAME OF MEDICATION(S): NovoLOG 100 UNIT/ML injection CONCERNS/QUESTIONS: calling to request an increase of medication to 70 instead of 55 since he may ran out early due to the recent change ADDITIONAL INFORMATION: [place]-[address] [address] [address] [facility] [phone] [address] documented in this encounter Plan of Treatment [...] documented as of this encounter Care Teams Unit Secy Relationship Specialty Start Date End Date Quinten Prasad MD PCP - General Family Practice 06/03/20 04/07/21 [address] [place] [address] documented as of this encounter
--- OUTSIDE RECORDS SUMMARY | 2022-07-24 16:34 | External Medical Summary | Encounter Summary ---
:1985 Author Organization [facility] Address [address] [place] [address] Care Team Providers Name Role Phone Quinten Prasad MD Primary Care Provider Reason for Referral Specialty Visit (Urgent) - Closed Specialty Diagnoses / Procedures Referred By Contact Refer red To Contact Nephrology Med / Diagnoses Diabetic nephropathy associated with type 1 diabetes mellitus (HCC) I am referring this 34 year old male with chronic kidney disease. Diabetic nephropathy Quinten Prasad MD [facility] Nephrology [address] [place] [address] [place] [address] Referral ID Status Reason Start Date Expiration Date Visits Requ ested Visits Authorized [id number] Closed 09/23/2020 09/23/2021 1 1 Scheduling Instructions Referral to: [facility]: [facility] Clinic ([place] [id number]) [phone] ----Please be aware that while I, as you r health care provider, have identified this referral as medically indicated, I canno t guarantee your insurance plan will cover it. I recommend you contact your insuran ce carrier to make sure this is a covered service they will pay for. ision Screening Services (Routine) - Closed Specialty Diagnoses / Procedures Referred By Contact Refer red To Contact Ophthalmology Medicine / Diagnoses Diabetic retinopathy associated with type 1 diabetes mellitus, macular edema presence unspecified, unspecified laterality, unspecified retinopathy severity (HCC) Quinten Prasad MD [facility] Ophthalmology [address] [place] [address] [place] [address] Phone: Fax: Referral ID Status Reason Start Date Expiration Date Visits Requ ested Visits Authorized [id number] Closed 09/23/2020 09/23/2021 1 1 Scheduling Instructions Referral to: [facility]: [facility] ([place] [id number]) [phone] ----Please be aware that while I, as you r health care provider, have identified this referral as medically indicated, I canno t guarantee your insurance plan will cover it. I recommend you contact your insuran ce carrier to make sure this is a covered service they will pay for. Reason for Visit Reason Comments Wellness Referral Opthomologist and Nephrology Encounter Details Date Type Department Care Team Description 09/23/2020 Telemedicine Medicine Primary Quinten Prasad MD Dx: Diabetic Care Family Medicine [address] reti nopathy at [facility] associated with type [address] [place] [address] 1 diabetes mellitus, [place], [place] [phone] (Wo rk) macular edema [phone] presence unspecified, unspecified laterality, unspecified retinopathy sev erity (HCC) (Primary Dx) Social History Tobacco Use Types Packs/Day Years Used Date Smoking Tobacco: Former Cigarettes Quit : 06/03/2012 Smokeless Tobacco: Never Alcohol Use Standard Drinks/Week Comments Not Currently 0 (1 standard drink = 0.6 oz pure alcoho l) Sex Assigned at Date Recorded Male 08/18/2020 8:31 PM PST documented as of this encounter Progress Notes Charlene Weller, VALERI - 09/23/2020 1:00 PM PST Patient Rooming (in-clinic or Telemed): Telemed Reason for Visit: Chief Complaint Patient presents with Wellness Referral Opthomologist and Nephrology Refills? NO Referral? NO Letter or Form? NO Lab Results? NO HEALTH MAINTENANCE: Has the patient had this done since their last visit? Cervical screening/PAP: N/A Mammo: N/A Colon Screen: N/A Have you seen a specialist since your last visit: No Vaccines Due? No HM Due: Health Maintenance Topic Date Due Hepatitis C Screening 1986 HIV Screening 2001 Hepatitis B Vaccine (1 of 3 - Risk 3-dose series) 2005 Diabetes A1c 08/15/2020 Diabetes Eye Exam 01/13/2021 Diabetes Foot Exam 01/14/2021 Depression Screening (PHQ-2) 06/03/2021 Diabetes Nephropathy: Kidney Disease Monitoring 06/09/2021 DTaP, Tdap, and Td Vaccines (2 - Td) 06/03/2030 Influenza Vaccine Completed Pneumococcal Vaccine: Pediatrics (0-5 years) and At-Risk Patients (6-64 years) Completed Hepatitis A Vaccine Aged Out PCP Verified? Yes, Quinten Prasad MD Quinten Prasad MD - 09/23/2020 1:00 PM PST Family Medicine Telemedicine Note Chief Complaint 34 year old M w/ DM1 p/w referral coordination. History of Present Illness The patient is here with his to discuss care coordination. He requires new referral to retina and renal within the . He had his port placed successfully and needs management, which his partner can provide at home as an RN. Problem list and medications reviewed and updated today as documented in the electronic health record. Physical Exam Gen: AAOx3, in NAD, resting comfortably HEENT: NC/AT, EOMI Resp: no increased work of breathing Assessment/Plan 34 year old M p/w: 1. Diabetic retinopathy associated with type 1 diabetes mellitus, macular edema presence unspecified, unspecified laterality, unspecified retinopathy severity (HCC) New retina referral. - REFERRAL TO EYE CARE 2. Diabetic nephropathy associated with type 1 diabetes mellitus (HCC) New renal referral. - REFERRAL TO NEPHROLOGY 3. Port-A-Cath in place Supplies given for home flush. Will f/u with GI. - Needle (Disp) 20G X 3/4" miscellaneous; Use 1 Units one time a week. Dispense: 50 each; Refill: 1 - heparin flush 100 UNIT/ML injection; Place 5 mL into the line one time a week. Dispense: 60 mL; Refill: 3 - sodium chloride (Saline Flush) 0.9 % flush; Place 10 mL into the line one time a week. Dispense: 12 mL; Refill: 3 Follow-up: [facility] Telemedicine Encounter I conducted this encounter from [facility] via secure, live, [id number] video conference with the patient. Mauri was located at home. Prior to the interview, the risks and benefits of telemedicine were discussed with the patient and verbal consent was obtained. This visit was conducted via telemedicine to adhere with social distancing guidelines during the COVID-19 pandemic. Quinten Prasad MD Family Medicine [facility] documented in this encounter Plan of Treatment Scheduled Referrals Name Type Priority Associated Diagnoses Order S chedule REFERRAL TO EYE CARE Referral Routine Diabetic retinopathy Ordered: 09/23/2020 associated with type 1 diabetes mellitus, macular edema presence unspecified, unspecified laterality, unspecified retinopathy severity (HCC) REFERRAL TO NEPHROLOGY Referral Routine Diabetic nephropat hy Ordered: 09/23/2020 associated with type 1 diabetes mellitus (HCC) documented as of this encounter Visit Diagnoses Diagnosis Diabetic retinopathy associated with typ e 1 diabetes mellitus, macular edema presence unspecified, unspecified laterality, uns pecified retinopathy severity (HCC) - Primary Diabetic nephropathy associated with typ e 1 diabetes mellitus (HCC) Port-A-Cath in place Other postprocedural status documented in this encounter Additional Health Concerns Assessment Noted Time PHQ-9 Depression Total Score: 9 06/03/2020 11:45 AM PS T documented as of this encounter Care Teams Video Production Coordinator Relationship Specialty Start Date End Date Quinten Prasad MD PCP - General Family Practice 06/03/20 04/07/21 [address] [place] [address] documented as of this encounter
--- OUTSIDE RECORDS SUMMARY | 2022-07-24 16:34 | External Medical Summary | Encounter Summary ---
:[address] [facility] Address [address] [place] [address] Care Team Providers Name Role Phone Pcp, None Primary Care Provider Unavailable Reason for Visit Reason Onset Date Comments Results 02/01/2020 Lab Test 02/01/2020 Encounter Details Date Type Department Care Team Description 02/01/2020 Telephone [facility] Krishna Sharma MD Results; Lab Test [facility] Address Alert - Do Not [place] [address] [place] [address] Social History Tobacco Use Types Packs/Day Years Used Date Smoking Tobacco: Never Smokeless Tobacco: Never Alcohol Use Standard Drinks/Week Comments Not Currently 0 (1 standard drink = 0.6 oz pure alcoho l) Sex Assigned at Date Recorded Male 08/18/2020 8:31 PM PST documented as of this encounter Miscellaneous Notes Telephone Encounter - Keyla Livingston CMA - 03/12/2020 9:41 AM PDT Didn't hear back from [facility] if they still need the test results for: fasting C Peptide and HA1 without the regular BG test, but sent copy anyway today, 03/12, to keep it in patient's file. Telephone Encounter - Keyla Livingston CMA - 03/06/2020 3:16 PM PDT Several messages left on patient's vm last month, to do fasting C peptide and Hemoglobin A1c, required by [facility], which patient completed on 02/12, as fasting, but he didn't report to [facility] that it's been done. He communicated with [email or web address] yesterday and he was told, beside the C peptide test and HA1c, they also need to have concurrent glucose test result under 225 mg/dl. Called [facility] at 2:56 today, and explained to the [facility] customer rep that it's the two tests is usually done at the same time but the blood glucose level is usually not ask. The rep stated she will discuss with her manager beverage to see if this is too important to have as well. LM in patient's vm to call back to discuss. Telephone Encounter - Keyla Livingston CMA - 02/12/2020 9:44 AM PDT HA1c and C peptide tests were ordered on 02/03, as needed by the insurance for review coverage for devices. Called and left message on patient's mobile phone today to call back and provide facility nameif was done elsewhere so that [facility] can request copy for [email or web address]. [email or web address] notified via fax. Telephone Encounter - Keyla Livingston CMA - 02/04/2020 3:30 PM PDT Some labs are just recent except C-Peptide test and Hemoglobin A1c, to be done at the same time and the patient needed to fast for both as required by [facility]. Telephone Encounter - Anette Boyer - 02/04/2020 2:22 PM PDT Pt 's spouse called to inform our clinic that the patient has not had the labs needed to continue with the [employer] ordering. Please request labs and notify patient so that they can go get labs drawn at facility that is closest to [place]. Telephone Encounter - Thomas Leyva - 02/01/2020 1:44 PM PDT RETURN CALL: Voicemail - Detailed Message SUBJECT: General Message MESSAGE: Zach from [employer] called regarding the patient. He states that some information, including chart notes and labs, were faxed to them for the patient to get medical supplies (insulin pump order) but there is some information missing. He states they need a fasting c pep tide and a blood glucose that are done on the same day. If the patient does not have this done already, orders need to be done for the patient to have the tests done. He states that he needs this done [place] so that the patient can get his insulin pump. He would like to have the labs faxed to [phone] Please contact him at [phone] ext [phone] if there are any questions. Thank you! documented in this encounter Plan of Treatment Scheduled Orders Name Type Priority Associated Diagnoses Order S chedule Hemoglobin A1C, External Lab Routine Type 1 diabetes mellitus Ordered: 02/04/2020 with hyperglycemia (HCC) documented as of this encounter Procedures Procedure Name Priority Date/Time Associated Diagnosis Comme nts C-PEPTIDE Routine 02/13/2020 12:10 Type 1 diabetes Results for this PM PDT mellitus with procedure are in hyperglycemia (HCC) the resu lts section. HEMOGLOBIN A1C, Routine 02/13/2020 12:10 Results for this HPLC PM PDT procedure are i n the results section. documented in this encounter Results (ABNORMAL) Hemoglobin A1c (02/13/2020 12:10 PM PDT) Analysis Performed At Patho logist Time Signature Hemoglobin A1C 9.4 (H) 4.0 - 6.0 02/14/2020 [facility] 11:38 AM PDT [facility] Specimen Anatomical Collection Method Collection Time Receive d Time (Source) Location / / Volume Laterality Whole blood 02/13/2020 12:10 02/13/2020 PM PDT 12:20 PM PDT Denise Sharma MD LAB BLOOD ORDERABLES Performing Organization Address City/State/ZIP Code Phon e Number [facility] DEPT OF [facility] [address] [place] [address] [facility] [place] [id number] [facility] [address] [place] [address] [facility] Rm NW120 (ABNORMAL) C-Peptide (02/13/2020 12:10 PM PDT) P athologist Signature C-Peptide 0.1 (L) 1.1 - 4.4 02/20/2020 [facility] ng/mL 9:03 AM PDT [facility] Comment: FASTING C-Peptide Comment SEE NOTES 02/20/2020 9:03 AM PDT [facility] Comment: This test was developed and its performa nce characteristics determined by the [facility] Department of L aboratory Medicine. It has not been cleared or approved by the [place] Food and D rug Administration. This laboratory is certified under the [facility] Laboratory Improvement Amendments (CLIA) as qualified to perfor m high complexity clinical laboratory testing. This test is used for clinical purposes. It should not be regarded as investigational or for research. [facility] G Specimen Anatomical Collection Method Collection Time Receive d Time (Source) Location / / Volume Laterality Serum 02/13/2020 12:10 02/13/2020 PM PDT 12:20 PM PDT Denise Sharma MD LAB BLOOD ORDERABLES Performing Organization Address City/State/ZIP Code Phon e Number [facility] DEPT OF LAB [address] [place] [address] [facility] MS [id number] [facility] [address] [place] [address] [facility] Rm NW120 documented in this encounter Visit Diagnoses Diagnosis Type 1 diabetes mellitus with hyperglyce nancy (HCC) - Primary Type I (juvenile type) diabetes mellitus without mention of complication, not stated as uncontrolled documented in this encounter Additional Health Concerns Assessment Noted Time PHQ-9 Depression Total Score: 9 01/15/2020 2:00 PM PDT documented as of this encounter Care Teams Gear Tooth Grinding Machine Operator Relationship Specialty Start Date End Date Pcp, None PCP - General 07/26/19 06/02/20 Identifies patients without a PCP or unassigned documented as of this encounter
--- OUTSIDE RECORDS SUMMARY | 2022-07-24 16:34 | External Medical Summary | Encounter Summary ---
:1985 Author Organization [facility] Address [address] [place] [address] Care Team Providers Name Role Phone Quinten Prasad MD Primary Care Provider Reason for Referral Specialty Diagnoses / Procedures Referred By Contact Refer red To Contact [facility] [address] [place] [address] Referral ID Status Reason Start Date Expiration Date Visits Requ ested Visits Authorized Encounter Details Date Type Department Care Team Description 11/20/2020 Abstract [facility] Primary Care [place] Prasad MD [facility] [address] [place] [address] [place] [address] [phone] Social History Tobacco Use Types Packs/Day Years [...] Date/Time Associated Diagnosis Comme nts REFERRAL TO GASTROENTEROLOGY-CLINIC Routine 11/13/2020 documented in this encounter Results Referral to Gastroenterology-Clinic (11/13/2020) Narrative This result has an attachment that is no t available. Quinten Prasad MD GI PROCEDURE ORDERABLES Performing Organization Address City/State/ZIP Code Phon e Number [facility] documented in this encounter Visit Diagnoses Not on filedocumented in this encounter Additional Health Concerns Infection Onset Date Last Indicated Resolved Time R/O COVID-19 10/09/2020 10/09/2020 11/20/2020 7:56 PM PDT Assessment Noted Time PHQ-9 Depression Total Score: 9 06/03/2020 11:45 AM PS T documented as of this encounter Care Teams Home Health Lpn Relationship Specialty Start Date End Date Quinten Prasad MD PCP - General Family Practice 06/03/20 04/07/21 [address] [place] [address] documented as of this encounter
--- OUTSIDE RECORDS SUMMARY | 2022-07-24 16:34 | External Medical Summary | Encounter Summary ---
:[address] [facility] Address [address] [place] [address] Care Team Providers Name Role Phone Pcp, None Primary Care Provider Unavailable Encounter Details Date Type Department Care Team Description 03/14/2020 Hospital Encounter [facility] Lab Med HOV [address] [place] [address] Social History Tobacco Use Types Packs/Day Years [...] Sig Dispensed Refills Start Date End Date BD Luer-Urszula Syringe USE WITH PROMETHAZINE 0 03/12 25G X 1" 3 ML miscellaneous furosemide 20 MG take 1 tablet by mouth 0 020 tablet once daily if needed for EDEMA/HYPERTENSIO... (REFER TO PRESCRIPTION NOTES). gabapentin 300 MG Take 2 capsules (600 360 capsule 3 020 capsuleIndications: mg) by mouth 2 times a Diabetic day. polyneuropathy associated with type 1 diabetes mellitus (HCC) ketamine 50 MG/ML [place] 50 mg in the 0 solution nostril [...] documented as of this encounter Care Teams Siphoner Relationship Specialty Start Date End Date Pcp, None PCP - General 07/26/19 06/02/20 Identifies patients without a PCP or unassigned documented as of this encounter
--- OUTSIDE RECORDS SUMMARY | 2022-07-24 16:34 | External Medical Summary | Encounter Summary ---
:1985 Author Organization [facility] Address [address] [place] [address] Care Team Providers Name Role Phone Quinten Prasad MD Primary Care Provider Reason for Visit Reason Onset Date Comments Forms Completion 08/25/2020 Encounter Details Date Type Department Care Team Description 08/25/2020 Telephone [facility] Krishna Sharma MD Forms Completion [facility] Address Alert - Do Not [place] [address] [place] [address] Social History Tobacco Use Types Packs/Day [...] / COVID-19? documented as of this encounter Miscellaneous Notes Telephone Encounter - Aarti Gillis CMA - 08/25/2020 5:39 PM PST See media documented in this encounter Plan of Treatment Not on filedocumented as of this encounter Visit Diagnoses Not on filedocumented in this encounter Additional Health Concerns Assessment Noted Time PHQ-9 Depression Total Score: 9 06/03/2020 11:45 AM PS T documented as of this encounter Care Teams Hand Etcher Helper Relationship Specialty Start Date End Date Quinten Prasad MD PCP - General Family Practice 06/03/20 04/07/21 [address] [place] [address] documented as of this encounter
--- OUTSIDE RECORDS SUMMARY | 2022-07-24 16:34 | External Medical Summary | Encounter Summary ---
:1985 Author Organization [facility] Address [address] [place] [address] Care Team Providers Name Role Phone Quinten Prasad MD Primary Care Provider Encounter Details Date Type Department Care Team Description 06/26/2020 Patient E-mail [facility] Address Alert - Do Not [place] [address] [place] [address] Social History Tobacco Use Types Packs/Day Years Used Date Smoking Tobacco: Former Cigarettes Quit : 06/03/2012 Smokeless Tobacco: Never Alcohol Use Standard Drinks/Week Comments Not Currently 0 (1 standard drink = 0.6 oz pure alcoho l) Sex Assigned at Date Recorded Male 08/18/2020 8:31 PM PST documented as of this encounter Miscellaneous Notes Telephone Encounter - Jomar Russell PharmD - 06/26/2020 3:42 PM PST Completed in separate TE earlier today Telephone Encounter - Lidia Piper CMA - 06/26/2020 3:32 PM PST Forwarding to PharmD for f/u documented in this encounter Plan of Treatment Not on filedocumented as of this encounter Visit Diagnoses Not on filedocumented in this encounter Additional Health Concerns Assessment Noted Time PHQ-9 Depression Total Score: 9 06/03/2020 11:45 AM PS T documented as of this encounter Care Teams Job Hand Relationship Specialty Start Date End Date Quinten Prasad MD PCP - General Family Practice 06/03/20 04/07/21 [address] [place] [address] documented as of this encounter
--- OUTSIDE RECORDS SUMMARY | 2022-07-24 16:34 | External Medical Summary | Encounter Summary ---
:1985 Author Organization [facility] Address [address] [place] [address] Care Team Providers Name Role Phone Quinten Prasad MD Primary Care Provider Reason for Visit Reason Onset Date Comments Prior Auth 10/01/2020 #RX: heparin flush 1 00 UNIT/ML injection Encounter Details Date Type Department Care Team Description 10/01/2020 Telephone [facility] Primary Quinten Prasad MD Prior Auth (#RX: Care Family Medicine [address] flush [address] UNIT/ML injection) [address] [place] [address] [place] [address] [phone] Social History Tobacco Use Types Packs/Day Years Used Date Smoking Tobacco: Former Cigarettes Quit : 06/03/2012 Smokeless Tobacco: Never Alcohol Use Standard Drinks/Week Comments Not Currently 0 (1 standard drink = 0.6 oz pure alcoho l) Sex Assigned at Date Recorded Male 08/18/2020 8:31 PM PST documented as of this encounter Miscellaneous Notes Telephone Encounter - Juan Carlos Clemons - 10/06/2020 9:44 AM PDT Images from the original note were not included. Noticed of inquiry Received Medication: heparin flush 100 UNIT/ML injection Reason for Denial: Not covered under Medicare Part D Date received: 10/03/2020 Insurance Company: [employer] Auth Number: n/a Additional info: RX is not covered under pt's Part D benefits. Drugs eligible under Medicare Part A or Part B are excluded from Part D. Noticed sent to pharmacy via fax to bill through Part B. No further action needed. Closing TE Excerpt received: Appeal Information N/A Telephone Encounter - Wilfrid Tariq - 10/01/2020 2:14 PM PDT Received PA request for heparin flush 100 UNIT/ML injection. Requesting Pharmacy: [facility] Reason for PA: PA Required Insurance Name: [employer] Medicare Phone # Bin # [phone] - PCN:[id number](Group:[id number]) PA submitted via fax. Will check for response in 4 business days. If no response at that time will call insurance to check status. Dorie Horta: [id number] documented in this encounter Plan of Treatment Not on filedocumented as of this encounter Visit Diagnoses Not on filedocumented in this encounter Additional Health Concerns Assessment Noted Time PHQ-9 Depression Total Score: 9 06/03/2020 11:45 AM PS T documented as of this encounter Care Teams Cod Clerk Relationship Specialty Start Date End Date Quinten Prasad MD PCP - General Family Practice 06/03/20 04/07/21 [facility] [place] [address] documented as of this encounter
--- OUTSIDE RECORDS SUMMARY | 2022-07-24 16:34 | External Medical Summary | Encounter Summary ---
:1985 Author Organization [facility] Address [address] [place] [address] Care Team Providers Name Role Phone Pcp, None Primary Care Provider Unavailable Reason for Visit Reason Comments Follow-Up Diabetes Encounter Details Date Type Department Care Team Description 03/13/2020 Office Visit [facility] Denise Conti, Dx : Type 1 diabetes Gulshan Floyd Diabetes mellitus with [place] Address Alert - Do hyperglycemia (HCC) [address] Not Mail (Primary Dx) [place] [address] Social History Tobacco Use Types Packs/Day Years Used Date Smoking Tobacco: Never Smokeless Tobacco: Never Alcohol Use Standard Drinks/Week Comments Not Currently 0 (1 standard drink = 0.6 oz pure alcoho l) Sex Assigned at Date Recorded Male 08/18/2020 8:31 PM PST documented as of this encounter Last Filed Vital Signs Vital Sign Reading Time Taken Comments Blood Pressure 111/76 03/13/2020 9:40 AM PDT Pulse 95 03/13/2020 9:40 AM PDT Temperature 36.9 C (98.5 F) 03/13/2020 9:40 AM PDT Respiratory Rate - - Oxygen Saturation 96% 03/13/2020 9:40 AM PDT Inhaled Oxygen Concentration - - Weight 84.4 kg (186 lb) 03/13/2020 9:40 AM PDT Height 170 cm (5' 6.93") 03/13/2020 9:40 AM PDT Body Mass Index 29.19 03/13/2020 9:40 AM PDT documented in this encounter Patient Instructions Patient InstructionsDenise Sharma MD - 03/13/2020 9:30 AM PDT 1. Revised basal insulin rate: 12 AM 1.2, 2 AM 1.0, 7 AM 1.0, and 7 PM 1.2 units/h respectively. 2. No change in the meal related bolus insulin settings: continue with insulin to carb ratio of 1:18, correction factor of 50 and target blood glucose of 140 mg/dL. 3. Continue monitoring with Dexcom G6 CGM and review periodically, as needed. 4. Get fasting glucose and fasting C-peptide tomorrow, and once the lab results are sent to the insurance company, we should be able to process the pump upgrade to tandem T:slim X2 pump with basal IQ; control IQ to be updated after 3 to 4 weeks thereafter. 5. No other change in the plan of management. 6. Follow-up after 2 months. Denise Sharma MD Clinical furnace combination analyst Division of Metabolism, Endocrinology and Nutrition [facility] documented in this encounter Progress Notes Denise Sharma MD - 03/13/2020 9:30 AM PDT Images from the original note were not included. [facility] Diabetes [place] at [facility] Diabetes Follow-up Visit Note DEMOGRAPHIC INFORMATION Patient Name: Mauri Levine Age/ Sex: 34 year old male Date of : 1985 Address: [address] [place] [address] Service Date: 03/13/2020 Image Archivist: Denise Sharma MD CHIEF COMPLAINT/ PURPOSE OF VISIT Mr. Mauri Levine is a 34 year old male who presents today for follow-up evaluation and management of Type 1 diabetes. I had last seen him on 01/15/2020 and earlier via TM visit on 11/21/2019. He is accompanied to the clinic by his fiance. SUBJECTIVE HISTORY OF PRESENT ILLNESS INTERVAL HISTORY: Since his last evaluation he has been continuing with Tandem G4 pump; he still waiting for upgrade to tandem T slim X2 pump with control IQ. The insurance company required him to have a fasting C-peptide and corresponding fasting glucose value. Even though, last month, he did C-peptide estimation (0.1), since a corresponding fasting glucose was missing, he has been asked to repeat the tests. The pumpsettings are shown below. His distribution of basal to bolus insulin is 65% to 35%; his daily carbohydrate intake is about 115 g and total daily dose of insulin is about 40-42 units. The basal pump settings and meal related adjustments are shown below as well. His glycemic control continues to remain suboptimal with the most recent A1c being 9.7%. Data from Dexcom G6 download are shown. The CGM metrics and parameters were reviewed and discussed with him. Themost striking pattern is persistent overnight hyperglycemia. He has had no episodes of diabetic ketoa cidosis or episodes of severe hypoglycemia since last evaluation. His fianc mentions that he tendsto overcorrect episodes of hypoglycemia with resultant significant drop in blood glucose levels. Shealso mentions, however, that his adherence to prescribed regimen has improved since previous assessment. He has met with his nurses director couple weeks ago; his retinopathy status is reportedly stable. He is continuing to receive Avastin injections for macular edema. The lab work-up done post the clinicvisit, however revealed worsening renal functions; his creatinine has gone up to 4 mg/dL and eGFR has dropped to 18. The symptoms of peripheral neuropathy are stable. He had a gastric pacemaker put on January 30, 2020, and mentions that this has immensely helped in terms of reducing the symptoms of gastroparesis; he mentions an approximate 50-60% improvement in his GI symptoms. His blood pressure is well controlled. His weight has remained stable. RELEVANT HISTORY OF PAST VISIT: Mauri Levine was diagnosed with type 1 diabetes in 1999 (at the age of 13 years). He had diabetic ketoacidosis at diagnosis. He has been on insulin since then. He currently has Medicaid as his primary insurance with Medicaid as a secondary insurance. His glycemic control had been poor; his A1c at [facility] on 08/11/2019 was 10.4% and [facility] visit (01/15/2020) was 9.9%. For the preceding few days at his last visit, he had been having significant worsening of his gastroparesis symptoms with severe retching and nausea. His antihypertensive medications included lisinopril 5 mg daily, carvedilol 3.125 mg twice daily, and the dose of clonidine patch has been increased to 0.2 mg, applied once weekly. His serum creatininevalues had been in the range of 2.2-2.4 mg/dL, and the last eGFR value I reviewed then was from July 2019 and the value was 24. He has been using furosemide, on and off, as per his signal helper's guidance. Since diagnosis, over the last 2 decades, he had had multiple episodes of ketosis and ketoacidosis requiring hospitalization. The last episode of DKA was in 2018. In the more recent years, his gastroparesis-induced vomiting cycles and dehydration have been the primary precipitating factors for his episodes of diabetic ketoacidosis. He has had no severe hypoglycemias in the last several months; he recollects having had an episode of severe hypoglycemia almost 18 months ago. He has established chronic microvascular complications. He has bilateral proliferative retinopathy with macular edema; he has been getting periodic Avastin injections for the last 2 years in both eyes.His vision is currently stable. He was diagnosed with diabetic kidney disease little over 2 years ago; he has been following up with his signal helper. Few months ago, his eGFR had dropped to low 20s with creatinine going up to 3.36 (which his fiance attributed to the episode of ketoacidosis and dehydration), and more recent evaluation done at [facility] few weeks ago, reportedly showed eGFR in the range of 35-40 (stage 3 chronic kidney disease). He has been complaining over the last few years of paresthesia, hyperesthesia, and numbness in both the feet; he however denies any diabetic foot problems. He has history of diabetic autonomic neuropathy including hypoglycemia unawareness. The most significant manifestation of his dysautonomia is diabetic gastroparesis. This was diagnosed almost 3 years ago and as mentioned above, this is been quite disabling with recurrent episodes of retching and vomiting cycles. He mentions that his gastroparesis was confirmed by gastric emptying studies. He tried different medications in the past but is currently on domperidone 10 mg 3 times a day (he obtains the medication from [facility]) although he has been advised by his press clippings cutter and paster to be cautious in termsof dose escalation as he has a tendency for QT prolongation. He does think that since initiation of domperidone in April 2019 his ER visits and hospitalizations due to gastroparesis symptoms and resultant ketoacidosis have significantly reduced. He has dyslipidemia currently on atorvastatin 40 mg daily. He has no history of atherosclerotic cardiovascular disease such as coronary artery disease, cerebrovascular accident, or peripheral arterial disease; he has no history of vascular intervention. He has no history of thyroid disease or celiac disease. His fiance had mentioned during last assessment that he was quite nonadherent with respect to his overall diabetes management in the recent years; however, in the last few weeks he has been more compliant with his prescribed insulin dosing instructions and monitoring. The following portions of the patient's history were reviewed and updated as appropriate: problem list, current medications, past medical/surgical history, family/social history, and allergies. PROBLEM LIST AND CURRENT MEDICATIONS Patient Active Problem List Diagnosis Date Noted Presence of gastric pacemaker [Z96.89] 03/13/2020 Dyslipidemia [E78.5] 11/21/2019 Type 1 diabetes mellitus with hyperglycemia (HCC) [E10.65] 11/21/2019 Long-term insulin use (HCC) [Z79.4] 11/21/[address] [Z96.41] 11/21/2019 Retinopathy due to unstable type 1 diabetes mellitus (HCC) [E10.319, E10.65] 11/21/2019 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 diabetes mellitus (HCC) [E10.649] 11/21/2019 CKD stage 3 due to type 1 diabetes mellitus (HCC) [E10.22, N18.3] 10/11/2019 Macular degeneration [H35.30] 10/11/2019 Diabetic gastroparesis associated with type 1 diabetes mellitus [E10.43, K31.84] 11/29/2018 Type 1 diabetes mellitus with neurological manifestations [E10.49] 11/29/2018 Essential hypertension [I10] 11/29/2018 Current Outpatient Medications Medication Sig Dispense Refill atorvastatin 40 MG tablet take 1 tablet by mouth every evening 90 tablet 3 carVEDilol 3.125 MG tablet take 1 tablet by mouth twice a day with meals 180 tablet 1 cloNIDine 0.1 MG/24HR patch apply 1 patch every 7 days (Patient taking differently: Place 1 patch on the skin one time a week. 0.2 mg patch every 7 days) 12 patch 3 fluvoxaMINE 100 MG tablet Take 1 tablet (100 mg) by mouth at bedtime. 90 tablet 3 furosemide 20 MG tablet take 1 tablet by mouth once daily if needed for EDEMA/HYPERTENSIO... (REFER TO PRESCRIPTION NOTES). gabapentin 300 MG capsule Take 2 capsules (600 mg) by mouth 2 times a day. 360 capsule 3 ketamine 50 MG/ML solution [place] 50 mg in the nostril 3 times a day as needed. lisinopril 5 MG tablet Take 5 mg by mouth daily. LORazepam 0.5 MG tablet Take 0.5 mg by mouth 3 times a day as needed. melatonin 10 MG tablet Take by mouth at bedtime as needed. Multiple Vitamins-Minerals (MULTIVITAMIN ADULT OR) Take by mouth. NovoLOG 100 UNIT/ML injection Inject 55 Units under the skin daily. Use with insulin pump. 2 vial 11 ondansetron 4 MG disintegrating tablet dissolve 1 tablet ON TONGUE every 6 hours if needed for nausea 60 tablet 1 Other Meds (See Sig/Instructions) Take 10 mg by mouth. domperidone promethazine 25 MG/ML solution Inject 12.5 mg intramuscularly every 6 hours as needed. tadalafil 10 MG tablet Take 5 mg by mouth daily. True Metrix Blood Glucose Test strip 3 times a day. No current facility-administered medications for this visit. PAST MEDICAL HISTORY/SURGICAL HISTORY has a past medical history of Anxiety, Depression, Diabetic neuropathy (HCC), Erectile dysfunction,Gastroparesis due to DM ([facility]), and Type 1 diabetes ([facility]). has a past surgical history that includes ANES; REVISE/REPAIR FINGER/TOE NERVE. FAMILY HISTORY/SOCIAL HISTORY/ALLERGIES family history is not on file. He was adopted. 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 OBJECTIVE PHYSICAL EXAM Vitals: 03/13/20 0940 BP: 111/76 BP Cuff Size: Regular BP Site: Right Arm BP Position: Sitting Pulse: 95 Temp: 98.5 F (36.9 C) TempSrc: Temporal SpO2: 96% Weight: 186 lb (84.4 kg) Height: 5' 6.93" (1.7 m) Body mass index is 29.19 kg/m. Wt Readings from Last 3 Encounters: 03/13/20 186 lb (84.4 kg) 01/15/20 187 lb (84.8 kg) 01/15/20 190 lb (86.2 kg) BP Readings from Last 3 Encounters: 03/13/20 111/76 01/15/20 (!) 140/97 01/15/20 (!) 134/90 GENERAL: Awake, alert and is in no apparent distress EYES: conjunctivae are pink and moist, no exophthalmos, lag or stare ENT/MOUTH: dentition: fair, tongue normal THYROID: thyroid is firm, not enlarged, no nodules, non-tender LYMPHATIC: no cervical or supraclavicular adenopathy, no edema CARDIOVASCULAR: regular rate and rhythm RESPIRATORY: full breath sounds bilaterally with normal expansion MUSCULOSKELETAL: normal muscle mass, normal gait SKIN: no breakdown, nails normal NEUROLOGIC: Deferred to next visit PERRL, EOM normal, no tremor of the outstretched hands PSYCHIATRIC: mood and affect are normal OUTSIDE RECORDS: reviewed. Pertinent positives summarized in HPI LABS Reviewed in Epic. Relevant ones are tabulated below. Lab Results Component Value Date A1C 9.4 (H) 02/13/2020 A1C 9.9 (H) 01/15/2020 Lab Results Component Value Date CHOLESTEROL 219 (H) 01/15/2020 TRIGLYCERIDE 132 01/15/2020 LDL 128 01/15/2020 HDL 65 01/15/2020 CHOLHDLRATIO 3.4 01/15/2020 Lab Results Component Value Date TSH 1.003 01/15/2020 No results found for: GLUCOSE, SODIUM, POTASSIUM, CL, CO2, ANIONGAP, BUN, CREATININE, GFRA, GFRB, GFRCM, PROTEIN, ALBUMIN, ALT, AST, SHANDA, ALK, CA, MAGNESIUM, URICACID, VITD, HEMOGLOBIN, HEMATOCRIT, WBC, PLATELET, RBC, MCV, MCH, MCHC, RDW, ESR No results found for: ALBCREATRATU Telephone on 02/01/2020 Component Date Value C-Peptide 02/13/2020 0.1* C-Peptide Comment 02/13/2020 SEE NOTES Hemoglobin A1C 02/13/2020 9.4* Office Visit on 01/15/2020 Component Date Value Hemoglobin A1C 01/15/2020 9.9* Cholesterol (Total) 01/15/2020 219* Triglyceride 01/15/2020 132 Cholesterol (HDL) 01/15/2020 65 Cholesterol (LDL) 01/15/2020 128 Non-HDL Cholesterol 01/15/2020 154 Cholesterol/HDL Ratio 01/15/2020 3.4 Lipid Panel, Additional * 01/15/2020 (NOTE) Thyroid Stimulating Horm* 01/15/2020 1.003 OUTSIDE LABS reviewed in Care Everywhere and Media. ASSESSMENT & PLAN (E10.65) Type 1 diabetes mellitus with hyperglycemia (HCC) (primary encounter diagnosis) (Z79.4) Long-term insulin use (HCC) (Z96.41) Insulin pump in place (E78.5) Dyslipidemia (I10) Essential hypertension (E10.649) 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 diabetes mellitus (HCC) (Z96.89) Presence of gastric pacemaker (E10.43, K31.84) Diabetic gastroparesis associated with type 1 diabetes mellitus (E10.42) Type 1 diabetes mellitus with diabetic polyneuropathy (HCC) (E10.22, N18.3) CKD stage 3 due to type 1 diabetes mellitus (HCC) (E10.319, E10.65) Retinopathy due to unstable type 1 diabetes mellitus (HCC) Given his current glycemic profile, I made changes to his insulin pump settings, as reflected in theafter visit summary below. With insertion of gastric pacemaker, his gastroparesis symptoms have remarkably improved; even though his retinopathy status seems stable, good most recent blood work-up has revealed deteriorating renal function; I will recommend him to be in touch with a signal helper for further management. To facilitate upgrading to tandem T:slim X2 pump with control IQ (initially starting with a basal IQcapability), I recommended getting simultaneous fasting glucose and C-peptide estimation. He did that the day after the clinic visit; the fasting glucose is 164 mg/dL and C-peptide is awaited. No otherchanges were made to the plan of management. Will continue to monitor with Dexcom G6 CGM and follow-up in the clinic after couple months. After visit summary given to patient. 1. Revised basal insulin rate: 12 AM 1.2, 2 AM 1.0, 7 AM 1.0, and 7 PM 1.2 units/h respectively. 2. No change in the meal related bolus insulin settings: continue with insulin to carb ratio of 1:18, correction factor of 50 and target blood glucose of 140 mg/dL. 3. Continue monitoring with Dexcom G6 CGM and review periodically, as needed. 4. Get fasting glucose and fasting C-peptide tomorrow, and once the lab results are sent to the insurance company, we should be able to process the pump upgrade to tandem T:slim X2 pump with basal IQ; control IQ to be updated after 3 to 4 weeks thereafter. 5. No other change in the plan of management. 6. Follow-up after 2 months. Orders Placed This Encounter CONTINUOUS GLUCOSE MONITORING ANALYSIS I&R C-Peptide Glucose, Fasting GAD65 Antibody (Sendout) Comprehensive Metabolic Panel Denise Sharma MD Clinical furnace combination analyst Division of Metabolism, Endocrinology and Nutrition [facility] documented in this encounter Miscellaneous Notes Result Encounter Note - Denise Sharma MD - 03/13/2020 9:30 AM PDT The fasting C-peptide is very low, as anticipated. The corresponding fasting glucose is 164 mg/dL. Ihope there should be no issue now for update to control IQ. I had already mentioned earlier about the decline in the renal function that you should be discussing with your signal helper. documented in this encounter Plan of Treatment Not on filedocumented as of this encounter Procedures Procedure Name Priority Date/Time Associated Diagnosis Comme nts C-PEPTIDE Remote Lab 03/14/2020 10:37 Type 1 diabetes Results for this AM PDT mellitus with procedure are in hyperglycemia (HCC) the resu lts section. GAD65 AB ASSAY Remote Lab 03/14/2020 10:37 Type 1 diabetes Result s for this AM PDT mellitus with procedure are in hyperglycemia (HCC) the resu lts section. GLUCOSE, FASTING Remote Lab 03/14/2020 10:37 Type 1 diabetes Resu lts for this AM PDT mellitus with procedure are in hyperglycemia (HCC) the resu lts section. COMPREHENSIVE Remote Lab 03/14/2020 10:37 Type 1 diabetes Results for this METABOLIC PANEL AM PDT mellitus with procedure a re in hyperglycemia (HCC) the resu lts section. DE CONTINUOUS GLUCOSE Routine 03/13/2020 10:21 Type 1 diabetes MONITORING ANALYSIS AM PDT mellitus with I&R hyperglycemia (HCC) documented in this encounter Results (ABNORMAL) Comprehensive Metabolic Panel (03/14/2020 10:37 AM PDT) [facility] gist Method Time Signature Sodium 138 135 - 145 03/14/2020 [facility] meq/L 5:21 PM [facility] Potassium 3.7 3.6 - 5.2 03/14/2020 [facility] meq/L 5:21 PM [facility] Chloride 92 (L) 98 - 108 03/14/2020 [facility] meq/L 5:21 PM [facility] Carbon Dioxide, 37 (H) 22 - 32 03/14/2020 [facility] Total meq/L 5:21 PM [facility] Anion Gap 9 4 - 12 03/14/2020 [facility] 5:21 PM [facility] Glucose 165 (H) 62 - 125 03/14/2020 [facility] mg/dL 5:21 PM [facility] Urea Nitrogen 52 (H) 8 - 21 03/14/2020 [facility] mg/dL 5:21 PM [facility] Creatinine 4.06 (H) 0.51 - 03/14/2020 [facility] 1.18 5:21 PM [facility] mg/dL [facility] Protein (Total) 7.0 6.0 - 8.2 03/14/2020 [facility] g/dL 5:21 PM [facility] Albumin 4.3 3.5 - 5.2 03/14/2020 [facility] g/dL 5:21 PM [facility] Bilirubin 0.3 0.2 - 1.3 03/14/2020 [facility] (Total) mg/dL 5:21 PM [facility] Calcium 8.9 8.9 - 03/14/2020 [facility] 10.2 5:21 PM [facility] mg/dL [facility] AST (GOT) 16 9 - 38 03/14/2020 [facility] U/L 5:21 PM [facility] Alkaline 101 35 - 109 03/14/2020 [facility] Phosphatase U/L 5:21 PM [facility] (Total) [facility] ALT (GPT) 15 10 - 64 03/14/2020 [facility] U/L 5:21 PM [facility] eGFR by CKD-EPI 18 (L) >59 03/14/2020 [facility] mL/min/{1 5:21 PM [facility] JULIO .73_m2} [facility] GFR, Calculated GFR 03/14/2020 [facility] Information by CKD-EPI 5:21 PM PDT [facility] with changing renal function. See [email or web address]. Specimen Anatomical Collection Method Collection Time Receive d Time (Source) Location / / Volume Laterality Serum 03/14/2020 10:37 03/14/2020 AM PDT 11:02 AM PDT Denise Sharma MD LAB BLOOD ORDERABLES Performing Organization Address City/State/ZIP Code Phon e Number [facility] DEPT OF LAB [address] [place] [address] [place] [id number] [facility] [address] [place] [address] MEDICAL CENTER Rm [id number] (ABNORMAL) GAD65 Antibody (Sendout) (03/14/2020 10:37 AM PDT) athologist Signature GAD65 Ab Assay 0.05 (H) <=0.02 03/21/2020 REF LAB (Sendout) nmol/L 8:39 AM PDT interp only Comment: (NOTE) The following antibody was identified: G lutamic Acid Decarboxylase. * This profile is consist ent with predisposition to thyrogastric disorders , including thyroiditis, pernicious anemia, and type 1 diabetes, but has low specificity for neurological aut oimmunity. GAD65 antibody values less than 2.00 nmol/L [place] a lower positive predictive value for neurological autoim munity than values of 20.0 nmol/L and higher. * ADDITIONAL INFORMATIO N This test was developed and its performa nce characteristics determined by [facility] in a manner co nsistent with CLIA requirements. This test has not been natalia ared or approved by the U.S. Food and Drug Administration. Test Performed by: [facility] - [address] [address] Harvesting Supervisor: Mario Yu M.D. Ph. D.; CLIA# [id number] Specimen Anatomical Collection Method Collection Time Receive d Time (Source) Location / / Volume Laterality Serum 03/14/2020 10:37 03/14/2020 AM PDT 11:02 AM PDT Denise Sharma MD LAB BLOOD ORDERABLES Performing Organization Address City/State/ZIP Code Phon e Number OUTSIDE REFERENCE PERFORMING LAB REF LAB interp only SEE COMMENTS (ABNORMAL) Glucose, Fasting (03/14/2020 10:37 AM PDT) P athologist Signature Glucose, 164 (H) 62 - 125 03/14/2020 [facility] Fasting mg/dL 5:21 PM PDT [facility] Specimen Anatomical Collection Method Collection Time Receive d Time (Source) Location / / Volume Laterality Plasma 03/14/2020 10:37 03/14/2020 AM PDT 11:03 AM PDT Denise Sharma MD LAB BLOOD ORDERABLES Performing Organization Address [facility] Phon e Number [facility] DEPT OF LAB [address] [place] [address] MED MS [id number] [facility] [address] [place] [address] [facility] Rm [id number] (ABNORMAL) C-Peptide (03/14/2020 10:37 AM PDT) Patholo gist Method Time Signature C-Peptide 0.2 (L) 1.1 - 4.4 03/19/2020 [facility] ng/mL 8:38 AM PDT [facility] C-Peptide SEE NOTES 03/19/2020 [facility] Comment 8:38 AM PDT [facility] Comment: This test was developed and its performa nce characteristics determined by the [facility] Department of L aboratory Medicine. It has not been cleared or approved by the [place] Food and D rug Administration. This laboratory is certified under the linical Laboratory Improvement Amendments (CLIA) as qualified to [facility] high complexity clinical laboratory testing. This test is used for clinical purposes. It should not be regarded as investigational or for research. Specimen Anatomical Collection Method Collection Time Receive d Time (Source) Location / / Volume Laterality Serum 03/14/2020 10:37 03/14/2020 AM PDT 11:02 AM PDT Denise Sharma MD LAB BLOOD ORDERABLES Performing Organization Address City/[facility] [facility] Phon e Number [facility] DEPT OF LAB [address] [place] [address] MED MS [id number] [facility] [address] [place] [address] [facility] NW120 documented in this encounter Visit Diagnoses Diagnosis Type 1 diabetes mellitus with hyperglyce nancy (HCC) - Primary Type I (juvenile type) diabetes mellitus without mention of complication, not stated as uncontrolled Long-term insulin use (HCC) Encounter for long-term (current) use of insulin Insulin pump in place Insulin pump status Dyslipidemia Other and unspecified hyperlipidemia Essential hypertension Unspecified essential hypertension 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 diabe reji mellitus (HCC) Type I (juvenile type) diabetes mellitus with other specified manifestations, not stated as uncontrolled Presence of gastric pacemaker Diabetic gastroparesis associated with t ype 1 diabetes mellitus (HCC) Type 1 diabetes mellitus with diabetic p olyneuropathy ([facility]) Type I (juvenile type) diabetes mellitus with neurological manifestations, not stated as uncontrolled CKD stage 3 due to type 1 diabetes melli tus ([facility]) 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
--- OUTSIDE RECORDS SUMMARY | 2022-07-24 16:34 | External Medical Summary | Encounter Summary ---
:1985 Author Organization [facility] Address [address] [place] [address] Care Team Providers Name Role Phone Pcp, None Primary Care Provider Unavailable Reason for Visit Reason Comments Follow Up Visit medical needs Encounter Details Date Type Department Care Team Description 01/15/2020 Office Visit [facility] Primary Quinten Prasad MD Dx: Diabetic Care Family Medicine [address] poly neuropathy at [address] associated with type [address] [place], [place] [address] [address] diabetes mellitus (HCC) Place [phone] (Primary Dx) [place] (Work) [address] [phone] Social History Tobacco Use Types Packs/Day Years Used Date Smoking Tobacco: Never Smokeless Tobacco: Never Alcohol Use Standard Drinks/Week Comments Not Currently 0 (1 standard drink = 0.6 oz pure alcoho l) Sex Assigned at Date Recorded Male 08/18/2020 8:31 PM PST documented as of this encounter Last Filed Vital Signs Vital Sign Reading Time Taken Comments Blood Pressure 140/97 01/15/2020 1:55 PM PDT Pulse 83 01/15/2020 1:51 PM PDT Temperature 36.6 C (97.9 F) 01/15/2020 1:51 PM PDT Respiratory Rate 14 01/15/2020 1:51 PM PDT Oxygen Saturation 100% 01/15/2020 1:51 PM PDT Inhaled Oxygen Concentration - - Weight 84.8 kg (187 lb) 01/15/2020 1:51 PM PDT Height 170 cm (5' 6.93") 01/15/2020 1:51 PM PDT Body Mass Index 29.35 01/15/2020 1:51 PM PDT documented in this encounter Progress Notes MaloneCharlene Truong CMA - 01/15/2020 2:00 PM PDT Patient Rooming (in-clinic or Telemed): In clinic Reason for Visit: Chief Complaint Patient presents with Follow Up Visit medical needs Refills? NO Referral? NO Letter or Form? NO Lab Results? NO HEALTH MAINTENANCE: Has the patient had this done since their last visit? Cervical screening/PAP: N/A Mammo: N/A Colon Screen: N/A Have you seen a specialist since your last visit: No Vaccines Due? Yes, see below HM Due: Health Maintenance Topic Date Due Hepatitis C Screening 1985 Pneumococcal Vaccine: Pediatrics (0-5 years) and At-Risk Patients (6-64 years) (1 of 1 - PPSV23)1992 Depression Screening (PHQ-2) 1998 HIV Screening 2001 Diabetes Foot Exam 2004 Diabetes Eye Exam 2004 DTaP, Tdap, and Td Vaccines (1 - Tdap) 2005 Hepatitis B Vaccine (1 of 3 - Risk 3-dose series) 2005 Diabetes A1c 02/09/2020 Diabetes Nephropathy: Kidney Disease Monitoring 01/03/2021 Influenza Vaccine Completed PCP Verified? Yes, Pcp, None Quinten Prasad MD - 01/15/2020 2:00 PM PDT Family Medicine Clinic Note Chief Complaint 34 year old M w/ DM1 p/w DM f/u. History of Present Illness The patient is here for in-person f/u today. He saw endocrinology this morning with pump titration guidance given. His A1c is 9.9% today. He has a gastric pacemaker procedures scheduled for 01/29. He isseeing ophthalmology for Avastin injections. He takes fluvoxamine and is interested in dose titration. Problem list and medications reviewed and updated today as documented in the electronic health record. Review of Systems Constitutional: Negative. Psychiatric/Behavioral: Positive for dysphoric mood. Physical Exam Blood pressure (!) 140/97, pulse 83, temperature 97.9 F (36.6 C), temperature source Temporal, resp. rate 14, height 5' 6.93" (1.7 m), weight 187 lb (84.8 kg), SpO2 100 %. Gen: AAOx3, in NAD, resting comfortably HEENT: NC/AT, EOMI, PER CV: warm, well-perfused Resp: no increased work of breathing Ext: moving 4 ext Assessment/Plan 34 year old M p/w: 1. Mood disorder (HCC) Interested in dose increase; will increase fluvoxamine. Return precautions reviewed. - fluvoxaMINE 100 MG tablet; Take 1 tablet (100 mg) by mouth at bedtime. Dispense: 90 tablet; Refill: 3 2. Diabetic polyneuropathy associated with type 1 diabetes mellitus (HCC) Refill. - gabapentin 300 MG capsule; Take 2 capsules (600 mg) by mouth 2 times a day. Dispense: 360 capsule;Refill: 3 3. Type 1 diabetes mellitus with diabetic polyneuropathy (HCC) Non-smoker, BP per renal, eye exam UTD, foot exam today, labs UTD, on statin, defer ASA, on ABBE, tetanus vaccine in future. - FOOT EXAM W/MONOFILAMENT Follow-up: 3-6 months for wellness Quinten Prasad MD Family Medicine [facility] documented in this encounter Plan of Treatment Not on filedocumented as of this encounter Procedures Procedure Name Priority Date/Time Associated Diagnosis Comme nts KS FOOT EXAM Routine 01/15/2020 2:21 PM Type 1 diabetes mellit W/MONOFILAMENT PDT with diabetic polyneuropathy (HCC) documented in this encounter Results FOOT EXAM W/MONOFILAMENT (01/15/2020 2:21 PM PDT) Quinten Prasad MD PROCEDURES Performing Organization Address City/State/ZIP Code Phon e Number [facility] [address] [place] [address] documented in this encounter Visit Diagnoses Diagnosis Diabetic polyneuropathy associated with type 1 diabetes mellitus (HCC) - Primary Mood disorder (HCC) Unspecified episodic mood disorder Type 1 diabetes mellitus with diabetic p olyneuropathy (HCC) Type I (juvenile type) diabetes mellitus with neurological manifestations, not stated as uncontrolled documented in this encounter Additional Health Concerns Assessment Noted Time PHQ-9 Depression Total Score: 9 01/15/2020 2:00 PM PDT documented as of this encounter Care Teams Dishwasher Preparer Relationship Specialty Start Date End Date Pcp, None PCP - General 07/26/19 06/02/20 Identifies patients without a PCP or unassigned documented as of this encounter
--- OUTSIDE RECORDS SUMMARY | 2022-07-24 16:34 | External Medical Summary | Encounter Summary ---
:1985 Author Organization [facility] Address [address] [place] [address] Care Team Providers Name Role Phone Quinten Prasad MD Primary Care Provider Encounter Details Date Type Department Care Team Description 10/09/2020 Orders Only Covid-19 Testing Site [facility] Pr e-procedure lab exam (Primary Dx); at [facility] Contact with and (suspected) exposure to covid-[address] [place] [address] [address] [place] [address] Social History Tobacco Use Types Packs/Day Years [...] as of this encounter Visit Diagnoses Diagnosis Pre-procedure lab exam - Primary Pre-procedural laboratory examination Contact with and (suspected) exposure to covid-19 documented in this encounter Additional Health Concerns Infection Onset Date Last Indicated Resolved Time R/O COVID-19 10/09/2020 10/09/2020 11/20/2020 7:56 PM PDT Assessment Noted Time PHQ-9 Depression Total Score: 9 06/03/2020 11:45 AM PS T documented as of this encounter Care Teams Dental Biller Relationship Specialty Start Date End Date Quinten Prasad MD PCP - General Family Practice 06/03/20 04/07/21 [address] [place] [address] documented as of this encounter
--- OUTSIDE RECORDS SUMMARY | 2022-07-24 16:34 | External Medical Summary | Encounter Summary ---
:[address] [facility] Address [address] [place] [address] Care Team Providers Name Role Phone Pcp, None Primary Care Provider Unavailable Reason for Visit Reason Onset Date Comments Care Coordination 05/06/2020 Dexcom share code fo r TM viist Encounter Details Date Type Department Care Team Description 05/06/2020 Telephone [facility] Denise Conti Ca re Coordination [facility] Diabetes (Dexcom share code for [place] Address Alert - Do TM viist) [address] [address] Social History Tobacco Use Types Packs/Day Years Used Date Smoking Tobacco: Never Smokeless Tobacco: Never Alcohol Use Standard Drinks/Week Comments Not Currently 0 (1 standard drink = 0.6 oz pure alcoho l) Sex Assigned at Date Recorded Male 08/18/2020 8:31 PM PST documented as of this encounter Miscellaneous Notes Telephone Encounter - Paola Ramirez CMA - 05/06/2020 6:51 PM PDT LVM for pt to enter in share code to link Dexcom. I also emailed twice. documented in this encounter Plan of Treatment Not on filedocumented as of this encounter Visit Diagnoses Not on filedocumented in this encounter Additional Health Concerns Assessment Noted Time PHQ-9 Depression Total Score: 9 01/15/2020 2:00 PM PDT documented as of this encounter Care Teams Bevel Face Stoner And Polisher Relationship Specialty Start Date End Date Pcp, None PCP - General 07/26/19 06/02/20 Identifies patients without a PCP or unassigned documented as of this encounter
--- OUTSIDE RECORDS SUMMARY | 2022-07-24 16:34 | External Medical Summary | Encounter Summary ---
:1985 Author Organization [facility][note 3] Address [address] [place] [address] Care Team Providers Name Role Phone Pcp, None Primary Care Provider Unavailable Reason for Visit Reason Onset Date Comments Appointment 05/23/2020 Medical Advice 05/23/2020 Syncope 05/23/2020 Shortness of Breath 05/23/2020 Encounter Details Date Type Department Care Team Description 05/23/2020 Nurse Triage [facility] Primary Quinten Prasad MD Appointment; Medical Care Family Medicine [address] Advi [address]; Syncope; at [facility] Shortness of Breath [address] [place] [address] [place], [place] [phone] (Wo rk) [address] [phone] Social History Tobacco Use Types Packs/Day Years Used Date Smoking Tobacco: Never Smokeless Tobacco: Never Alcohol Use Standard Drinks/Week Comments Not Currently 0 (1 standard drink = 0.6 oz pure alcoho l) Sex Assigned at Date Recorded Male 08/18/2020 8:31 PM PST documented as of this encounter Miscellaneous Notes Telephone Encounter - Marlin Lizarraga - 05/23/2020 4:09 PM PST "the first time I fainted I had just had a laparoscopic surgery and I was in the hospital and walking in the room and was able to get back to the bed and summed it up to the anesthesia" "then a couple of weeks ago I was lying in beg and started getting short of breath and passed out a second time" "I feel fine today" Reason for Disposition Simple fainting is a chronic symptom (has occurred multiple times) Additional Information Negative: Still unconscious Negative: Still feels dizzy or lightheaded Negative: Difficult to awaken or acting confused (e.g., disoriented, slurred speech) Negative: Difficulty breathing Negative: Bluish (or ogden) lips or face Negative: Shock suspected (e.g., cold/pale/clammy skin, too weak to stand, low BP, rapid pulse) Negative: Bleeding (e.g., vomiting blood, rectal bleeding or tarry stools, severe vaginal bleeding) Negative: Chest pain Negative: Extra heart beats or heart is beating fast (i.e., palpitations) Negative: Heart beating < 50 beats per minute OR > 140 beats per minute Negative: Fainted suddenly after medicine, allergic food or bee sting Negative: Sounds like a life-threatening emergency to the triager Negative: Has diabetes (diabetes mellitus) and fainting from low blood sugar (i.e., < 70 mg/dL or 3.9 mmol/L) Negative: Seizure suspected (e.g., muscle jerking or shaking followed by confusion) Negative: Heat exhaustion suspected (i.e., dehydration from heat exposure) Negative: Fainted > 15 minutes ago and still looks pale (pale skin, pallor) Negative: Fainted > 15 minutes ago and still feels weak or dizzy Negative: History of heart problems or congestive heart failure Negative: Occurred during exercise Negative: Any head or face injury Negative: Age > 50 years Negative: Drinking very little and has signs of dehydration (e.g., no urine > 12 hours, very dry mouth) Negative: Fainted 2 times in one day Negative: Patient sounds very sick or weak to the triager Negative: All other patients, and now alert and feels fine (Exception: SIMPLE FAINT due to stress, pain, prolonged standing, or suddenly standing) Negative: Patient wants to be seen Answer Assessment - Initial Assessment Questions 1. ONSET: "How long were you unconscious?" (minutes) "When did it happen?" A couple of weeks ago 2. CONTENT: "What happened during period of unconsciousness?" (e.g., seizure activity) no 3. MENTAL STATUS: "Alert and oriented now?" (oriented x 3 = name, month, location) Alert and oriented now 4. TRIGGER: "What do you think caused the fainting?" "What were you doing just before you fainted?" (e.g., exercise, sudden standing up, prolonged standing) Had difficulty breathing and lost consciousness 5. RECURRENT SYMPTOM: "Have you ever passed out before?" If so, ask: "When was the last time?" and "What happened that time?" Yes, right after surgery 6. INJURY: "Did you sustain any injury during the fall?" no 7. CARDIAC SYMPTOMS: "Have you had any of the following symptoms: chest pain, difficulty breathing, palpitations?" Difficulty breathing, palpitations prior to fainting 8. NEUROLOGIC SYMPTOMS: "Have you had any of the following symptoms: headache, numbness, vertigo, weakness?" no 9. GI SYMPTOMS: "Have you had any of the following symptoms: abdominal pain, vomiting, diarrhea, blood in stools?" no 10. OTHER SYMPTOMS: "Do you have any other symptoms?" Orthostatic hypotension 11. : "Is there any chance you are ?" "When was your last menstrual period?" N/A Protocols used: FAINTING-ADULT - [place] Telephone Encounter - Juan Pablo Gomez - 05/23/2020 3:53 PM PST Routing to nurse triage to please assist. Thanks! Telephone Encounter - Angela Cota I - 05/23/2020 2:53 PM PST RETURN CALL: Voicemail - Detailed Message SUBJECT: Appointment Request REASON FOR VISIT: shortness of breath, "passing out" PREFERRED DATE/TIME: n/a ADDITIONAL INFORMATION: Patient called to schedule an appointment. He mentioned that he has "lost consciousness twice since January, the last time was a couple of weeks ago." He would like to discuss whathe should do and if an appointment can be made. documented in this encounter Plan of Treatment Not on filedocumented as of this encounter Visit Diagnoses Not on filedocumented in this encounter Additional Health Concerns Assessment Noted Time PHQ-9 Depression Total Score: 9 01/15/2020 2:00 PM PDT documented as of this encounter Care Teams Floorworker Relationship Specialty Start Date End Date Pcp, None PCP - General 07/26/19 06/02/20 Identifies patients without a PCP or unassigned documented as of this encounter
--- OUTSIDE RECORDS SUMMARY | 2022-07-24 16:34 | External Medical Summary | Encounter Summary ---
:1985 Author Organization [facility] Address [address] [place] [address] Care Team Providers Name Role Phone Quinten Prasad MD Primary Care Provider Encounter Details Date Type Department Care Team Description 03/06/2021 Patient E-mail [facility] Aarti Gillis Plea se upload your Pending Sale To [facility] Diabetes AGRICULTURAL SALES REPRESENTATIVE pump and Dexcom data [place] [address]ESS [address] [place] [phone] Social History Tobacco Use Types Packs/Day Years Used Date Smoking Tobacco: Former Cigarettes Quit : 06/03/2012 Smokeless Tobacco: Never Alcohol Use Standard Drinks/Week Comments Not Currently 0 (1 standard drink = 0.6 oz pure alcoho l) Sex Assigned at Date Recorded Male 08/18/2020 8:31 PM PST documented as of this encounter Miscellaneous Notes Telephone Encounter - Aarti Gillis CMA - 03/10/2021 4:51 PM PDT LVM asking pt to upload but also asking if, he wants to r/s since he is in the hospital. documented in this encounter Plan of Treatment Not on filedocumented as of this encounter Visit Diagnoses Not on filedocumented in this encounter Additional Health Concerns Assessment Noted Time PHQ-9 Depression Total Score: 9 06/03/2020 11:45 AM PS T documented as of this encounter Care Teams Sales Agent Protective Service Relationship Specialty Start Date End Date Quinten Prasad MD PCP - General Family Practice 06/03/20 04/07/21 [address] [place] [address] documented as of this encounter
--- OUTSIDE RECORDS SUMMARY | 2022-07-24 16:34 | External Medical Summary | Encounter Summary ---
:1985 Author Organization [facility] Address [address] [place] [address] Care Team Providers Name Role Phone Quinten Prasad MD Primary Care Provider Reason for Visit Reason Onset Date Comments Panel Management 08/28/2020 Panel Management Maame landa Encounter Details Date Type Department Care Team Description 08/28/2020 Telephone [facility] Primary Karla Blanco Panel Management [facility] PSS/PSR (Panel Management at [facility] ) [address] [place] [address] [phone] [place] [address] (Wo rk) Social History Tobacco [...] Miscellaneous Notes Telephone Encounter - Karla Blanco - 09/08/2020 2:39 PM PST Panel Management Meeting Notes Provider: Quinten Prasad MD Attendees: Dr. Armstrong, Dr. Kat, Dr. Mohamud, Padmini Boggs, & Dr. Weeks Care Gaps Reviewed: 1. Diabetes A1c 2. Hepatitis C & HIV screening 3. Hepatitis B vaccine Action(s): 1. Patient has upcoming appointment scheduled-add open care gaps. Responsible Role: HN Date Expected by: 10/06/20 documented in this encounter Plan of Treatment Not on filedocumented as of this encounter Visit Diagnoses Not on filedocumented in this encounter Additional Health Concerns Assessment Noted Time PHQ-9 Depression Total Score: 9 06/03/2020 11:45 AM PS T documented as of this encounter Care Teams Rivet Maker Relationship Specialty Start Date End Date Quinten Prasad MD PCP - General Family Practice 06/03/20 04/07/[address] [place] [id number] documented as of this encounter
--- OUTSIDE RECORDS SUMMARY | 2022-07-24 16:34 | External Medical Summary | Encounter Summary ---
:1985 Author Organization [facility] Address [address] [place] [address] Care Team Providers Name Role Phone Pcp, None Primary Care Provider Unavailable Reason for Visit Reason Comments Refill Request 3 meds refused/see 11-30-19/s till pending Encounter Details Date Type Department Care Team Description 12/05/2019 Refill [facility] Primary Quinten Prasad MD Refill Request (3 meds Care Family Medicine at [address] [facility] [address] refused/[place] [address] 11-30-19/still pending) [address] [place] [address] [phone] Social History Tobacco Use Types Packs/Day Years [...] Diagnoses Not on filedocumented in this encounter Care Teams Bsw Relationship Specialty Start Date End Date Pcp, None PCP - General 07/26/19 06/02/20 Identifies patients without a PCP or unassigned documented as of this encounter
--- OUTSIDE RECORDS SUMMARY | 2022-07-24 16:34 | External Medical Summary | Encounter Summary ---
:1985 Author Organization [facility] Address [address] [place] [address] Care Team Providers Name Role Phone Pcp, None Primary Care Provider Unavailable Reason for Visit Reason Comments Diabetes Followup Encounter Details Date Type Department Care Team Description 01/15/2020 Office Visit [facility] Denise Conti, Dx : Type 1 diabetes Gulshan Floyd Diabetes mellitus with [place] Address Alert - Do hyperglycemia (HCC) [address] Not Mail (Primary Dx) [place] [address] Social History Tobacco Use Types Packs/Day Years Used Date Smoking Tobacco: Never Smokeless Tobacco: Never Alcohol Use Standard Drinks/Week Comments Not Currently 0 (1 standard drink = 0.6 oz pure alcoho l) Sex Assigned at Date Recorded Male 08/18/2020 8:31 PM PST documented as of this encounter Last Filed Vital Signs Vital Sign Reading Time Taken Comments Blood Pressure 134/90 01/15/2020 11:51 AM PDT Pulse 74 01/15/2020 11:51 AM PDT Temperature - - Respiratory Rate - - Oxygen Saturation - - Inhaled Oxygen Concentration - - Weight 86.2 kg (190 lb) 01/15/2020 11:51 AM PDT Height 170.2 cm (5' 7") 01/15/2020 11:51 AM PDT Body Mass Index 29.76 01/15/2020 11:51 AM PDT documented in this encounter Patient Instructions Patient InstructionsDenise Sharma MD - 01/15/2020 11:30 AM PDT 1. Increase the basal insulin infusion rate from 7 AM to midnight to 1.4 units/h (from the current rate of 1.2 units/h); no other changes in the pump settings. 2. Continue monitoring fingerstick glucose 3-4 times a day and review periodically, as needed. 3. We will initiate the paperwork for procuring Dexcom G6 CGM sensors and for upgrade of the pump totandem T slim X2 pump with basal IQ. Given the presence of gastroparesis, we will revisit, at a later date, if and when we need to be updating with control IQ functionality. 4. Get lab work done today. 5. Follow-up after 3 months. Denise Sharma MD Clinical cheerleading coach Division of Metabolism, Endocrinology and Nutrition [facility] documented in this encounter Progress Notes Denise Sharma MD - 01/15/2020 11:30 AM PDT Chief Complaint: Mauri Levine is a 33 year old male with Type 1 Diabetes. This is his follow-up evaluation at our clinic. I had last seen him via TM visit on 11/21/2019. He is accompanied to the clinic by his fiance. HPI Mauri Levine was diagnosed with type 1 diabetes in 1999 (at the age of 13 years). He had diabetic ketoacidosis at diagnosis. He has been on insulin since then. Currently, he is using Novolog insulin in Tandem t:slim G4 pump with basal insulin infusion rates (lispro insulin) of 1.2 units/h from 7 AM to 2 AM and 0.7 units/h from 2 AM to 7 AM, and an insulin to carbohydrate ratio of 1:13 around theclock, with a correction factor of 45, and blood glucose target of 140 mg/dL from 12 AM to 7 AM and 120 mg/dL from 7 AM to midnight, for the meal-related bolus insulin. Download from pump reveals an average daily CHO intake of 169 G, TDD of insulin of 45 units with distribution of basal to bolus being56% to 44%. He is interested in updating to Tandem T:slim X2 with basal/control IQ functionality; however, he has had challenges with his insurance in getting an approval. He used to monitor his blood glucose with the Dexcom G6 continuous glucose monitoring system, however, he has unable to continue right now, due to not being to get his continued sensor supply due to insurance challenges. He has been currently monitoring with finger-stick glucose. He currently has Medicaid as his primary insurance with Medicaid as a secondary insurance. His glycemic control is poor; his A1c at [facility] on 08/11/2019 was 10.4% and today's value (01/15/2020) is 9.9%. Data from his meter download is hard to interpret, as he mentions that he does not enter all the captured values. He mentions that approximately half the times his values are in the "normal range" (70 to 110 mg/dL reportedly), however, the available blood glucose profile in the last few days have been extremely high with values ranging between 400 mg/dL to 600 mg/dL. He denies any history of hypoglycemias or severe hypoglycemia episodes in the recent past, and he has had no ketoacidosis in the last several months. For the last few days, he has been having significant worsening of his gastroparesis symptoms with severe retching and nausea, and even prior to I seeing him today, he threw up couple times. He mentions that he is scheduled to get a gastric pacemaker in the coming weeks. His blood pressure reportedly has been suboptimally controlled in the recent weeks. His today's blood pressure is elevated. His antihypertensive medications include lisinopril 5 mg daily, carvedilol 3.125 mg twice daily, and the dose of clonidine patch has been increased to 0.2 mg, applied once weekly. His serum creatinine values have been in the range of 2.2-2.4 mg/dL, and the last EGFR value I reviewed is from July 2019 and the value was 24. He has been using furosemide, on and off, as per his metal container maker's guidance. He states that he had lab work-up at [facility] about 6 weeks ago, however, I could not retrieve dose reports in his epic chart. His lab work for lipids and TSH were done today after the clinic visit. His cholesterol is 219, triglycerides 132, LDL 128, and HDL cholesterol 65 mg/dL. His TSH is 1.003. Since diagnosis, over the last 2 decades, he had had multiple episodes of ketosis and ketoacidosis requiring hospitalization. The last episode of DKA was in 2019. In the more recent years, his gastroparesis-induced [...] he has been following up with his metal container maker. Few months ago, his eGFR had dropped to low 20s with creatinine going up to 3.36 (which his fiance attributed to the episode of ketoacidosis and dehydration), and more recent evaluation done at [facility] few weeks ago, reportedly showed eGFR in the range of 35-40 (stage 3 chronic kidney disease). The recent lab work is not available for review.He has been complaining over the last few [...] although he has been advised by his audit control clerk to be cautious in termsof dose escalation as he has a tendency for QT prolongation. He does think that since initiation of domperidone in April 2019 his ER visits and hospitalizations due to gastroparesis symptoms and resultant ketoacidosis have significantly reduced. He had history of hypertension in the past and was on ABBE inhibitor. He has dyslipidemia currently on atorvastatin 40 [...] his prescribed insulin dosing instructions and monitoring. Patient Active Problem List Diagnosis Date Noted Dyslipidemia [E78.5] 11/21/2019 Type 1 diabetes mellitus [...] manifestations [E10.49] 11/29/2018 Essential hypertension [I10] 11/29/2018 Past Medical History: Diagnosis Date Anxiety Depression Diabetic neuropathy (HCC) Erectile dysfunction Gastroparesis due to DM (HCC) Type 1 diabetes (HCC) Past Surgical History: Procedure Laterality Date ANES; REVISE/REPAIR FINGER/TOE NERVE family history is not on file. He was adopted. SOCIAL HISTORY: Social History Tobacco Use Smoking status: Never Smoker Smokeless tobacco: Never Used Substance Use Topics Alcohol use: Not Currently Drug use: Yes Types: Marijuana Review of patient's allergies indicates: Allergies Allergen Reactions Prochlorperazine Other Other reaction(s): Other (See Comments) Neuroleptic malignant syndrome "Neuroleptic Malignant Syndrome, per SO" Silver Rash Metoclopramide Other reaction(s): Other (See Comments) "Tardive Diskinesia per SO" Current Outpatient Medications Medication Sig Dispense Refill [...] 360 capsule 3 ketamine 50 MG/ML solution Hudson 50 mg in the nostril 3 times [...] No current facility-administered medications for this visit. ROS: Except as noted in HPI, the remainder of complete review of systems is otherwise negative. OBJECTIVE PHYSICAL EXAM Vitals: 01/15/20 1151 BP: (!) 134/90 BP Cuff Size: Regular BP Site: Right Arm BP Position: Sitting Pulse: 74 Weight: 190 lb (86.2 kg) Height: 5' 7" (1.702 m) Body mass index is 29.76 kg/m. Wt Readings from Last 3 Encounters: 01/15/20 187 lb (84.8 kg) 01/15/20 190 lb (86.2 kg) BP Readings from Last 3 Encounters: 01/15/20 (!) 140/97 01/15/20 (!) 134/90 GENERAL: [...] positives summarized in HPI LABS Reviewed in [facility]. Relevant ones are tabulated below. Lab Results Component Value Date A1C 9.9 (H) 01/15/2020 Lab Results Component [...] RDW, ESR No results found for: ALBCREATRATU OUTSIDE LABS reviewed in Care Everywhere and Media. ASSESSMENT & PLAN: (E10.65) Type 1 diabetes mellitus with hyperglycemia ([facility]) (primary encounter diagnosis) (Z79.4) Long-term insulin use ([facility]) (Z96.41) Insulin pump in place (E78.5) Dyslipidemia (I10) Essential hypertension (E10.22, N18.3) CKD stage 3 due to type 1 diabetes mellitus ([facility]) (E10.42) Type 1 diabetes mellitus with diabetic polyneuropathy ([facility]) (E10.649) 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 diabetes mellitus ([facility]) (E10.43, K31.84) Diabetic gastroparesis associated with type 1 diabetes mellitus (E10.319, E10.65) 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 He has established chronic microvascular complications, including significant autonomic neuropathy, with quite disturbing symptoms of gastroparesis. He has had multiple episodes of diabetic ketoacidosis and severe hypoglycemia in the past. The frequency of ketoacidosis episodes has been coming down of late, with improvement in his gastroparesis manifestations. However, today, he had quite a bit of GI symptoms; he is planning to get a gastric pacemaker in the coming weeks. His glycemic control is poor with wide glycemic variability. This could be due to his status of his chronic complications and possibly some degree of depression, and gastroparesis. Hypoglycemia unawareness adds more complexity to management. He is also been asked to reach out to his providers at [facility] and request them to send across his old medical records to our clinic. He will benefit from switching, initially to Tandem t:slim X2 pump with basal IQ, and later, once hegets used to the new system, we will revisit adding control IQ functionality; his gastroparesis might pose challenge to the latter. Mauri Levine would benefit from the use of therapeutic continuous glucose monitoring with Dexcom G6 system. Mauri has a diagnosis of diabetes mellitus and uses a home blood glucose monitor to test4 times a day. Mauri is treated with CSII regimen. Mauri's insulin treatment regimen requires frequent adjustments on the basis of blood glucose readings. At our visit today, glycemic control was evaluated and patient meets Medicare criteria for CGM therapy. Moreover, his severe gastroparesis and wideglycemic fluctuations with resultant poor control, and presence of hypoglycemia unawareness make useof Dexcom G6 critical for management of his diabetes. An after visit summary was provided with the following advise: 1. Increase the basal insulin infusion rate from 7 AM to midnight to 1.4 units/h (from the current rate of 1.2 units/h); no other changes in the pump settings. 2. Continue monitoring fingerstick glucose 3-4 times a day and review periodically, as needed. 3. We will initiate the paperwork for procuring Dexcom G6 CGM sensors and for upgrade of the pump totandem T slim X2 pump with basal IQ. Given the presence of gastroparesis, we will revisit, at a later date, if and when we need to be updating with control IQ functionality. 4. Get lab work done today. 5. Follow-up after 3 months. Orders Placed This Encounter HEMOGLOBIN A1C, RAPID Lipid Panel Thyroid Stimulating Hormone Denise Sharma MD Clinical cheerleading coach Division of Metabolism, Endocrinology and Nutrition [facility] documented in this encounter Plan of Treatment Not on filedocumented as of this encounter Procedures Procedure Name Priority Date/Time Associated Diagnosis Comme nts HEMOGLOBIN A1C, Remote Lab 01/15/2020 12:54 Type 1 diabetes Resul ts for this RAPID PM PDT mellitus with procedure are in hyperglycemia (HCC) the resu lts section. THYROID STIMULATING Remote Lab 01/15/2020 12:54 Type 1 diabetes R esults for this HORMONE PM PDT mellitus with procedure are in hyperglycemia (HCC) the resu lts section. LIPID PANEL Remote Lab 01/15/2020 12:54 Type 1 diabetes Results for this PM PDT mellitus with procedure are in hyperglycemia (H CC) the results Dyslipidemia section. documented in this encounter Results Thyroid Stimulating Hormone (01/15/2020 12:54 PM PDT) athologist Signature Thyroid 1.003 0.400 - 01/15/2020 [facility] Stimulating 5.000 10:46 PM PDT [place] Hormone u[IU]/mL [facility] Specimen Anatomical Collection Method Collection Time Receive d Time (Source) Location / / Volume Laterality Serum 01/15/2020 12:54 01/15/2020 PM PDT 12:55 PM PDT Denise Sharma MD LAB BLOOD ORDERABLES Performing Organization Address City/State/ZIP Code Phon e Number [facility] DEPT OF LAB [address] [place] [phone] [facility] [place] [id number] [facility] [address] Rm NW120 (ABNORMAL) Lipid Panel (01/15/2020 12:54 PM PDT) [facility] Method Time Signature Total Cholesterol 219 (H) <200 01/15/2020 [facility] mg/dL 10:38 PM [facility] Triglyceride 132 <150 01/15/2020 [facility] mg/dL 10:38 PM PDT [facility] HDL Cholesterol 65 >39 mg/dL 01/15/2020 [facility] 10:38 PM [facility] Cholesterol (LDL) 128 <130 01/15/2020 [facility] mg/dL 10:38 PM PDT [facility] Non-HDL 154 0 - 159 01/15/2020 [facility] Cholesterol mg/dL 10:38 PM PDT [facility] Cholesterol/HDL 3.4 01/15/2020 [facility] Ratio 10:38 PM PDT [facility] Lipid Panel, (NOTE) 01/15/2020 [facility] Additional Info. 10:38 PM PDT [facility] Comment: For complete information to help interpr et the lipid panel, please use the National Cholesterol Education P rogram (NCEP) guideline based reference range comments found here: [email or web address] Specimen Anatomical Collection Method Collection Time Receive d Time (Source) Location / / Volume Laterality Serum 01/15/2020 12:54 01/15/2020 PM PDT 12:55 PM PDT Denise Sharma MD LAB BLOOD ORDERABLES Performing Organization Address City/State/ZIP Code Phon e Number [facility] DEPT OF LAB [address] [place] [address] [facility] [place] [id number] [facility] [address] [place] [address] [facility] Rm NW120 (ABNORMAL) HEMOGLOBIN A1C, RAPID (01/15/2020 12:54 PM PDT) athologist Signature Hemoglobin A1C 9.9 (H) 4.0 - 6.0 01/15/2020 Medicine % 1:10 PM PDT [facility] Lab Specimen Anatomical Collection Method Collection Time Receive d Time (Source) Location / / Volume Laterality Whole blood 01/15/2020 12:54 01/15/2020 PM PDT 12:55 PM PDT Denise Sharma MD LAB BLOOD ORDERABLES Performing Organization Address City/[facility] Code Phon e Number [address] [phone] [place] Rm [address] [address] [place] [facility], Room F143 documented in this encounter Visit Diagnoses Diagnosis Type 1 diabetes mellitus with hyperglyce nancy (HCC) - Primary Type I (juvenile type) diabetes mellitus without mention of complication, not stated as uncontrolled Long-term insulin use (HCC) Encounter for long-term (current) use of insulin Insulin pump in place Insulin pump status Dyslipidemia Other and unspecified hyperlipidemia Essential hypertension Unspecified essential hypertension CKD stage 3 due to type 1 diabetes melli tus (HCC) Type 1 diabetes mellitus with diabetic p olyneuropathy (HCC) Type I (juvenile type) diabetes mellitus with neurological manifestations, not stated as uncontrolled 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 diabe reji mellitus (HCC) Type I (juvenile type) diabetes mellitus with other specified manifestations, not stated as uncontrolled Diabetic gastroparesis associated with t ype 1 diabetes mellitus (HCC) Retinopathy due to unstable type 1 diabe reji mellitus (HCC) documented in this encounter Additional Health Concerns Assessment Noted Time PHQ-9 Depression Total Score: 9 01/15/2020 2:00 PM PDT documented as of this encounter Care Teams Structural Mill Supervisor Relationship Specialty Start Date End Date Pcp, None PCP - General 07/26/19 06/02/20 Identifies patients without a PCP or unassigned documented as of this encounter
--- OUTSIDE RECORDS SUMMARY | 2022-07-24 16:34 | External Medical Summary | Encounter Summary ---
:1985 Author Organization [facility] Address [address] [place] [address] Care Team Providers Name Role Phone Quinten Prasad MD Primary Care Provider Reason for Visit Reason Onset Date Comments Care Coordination 07/29/2020 Encounter Details Date Type Department Care Team Description 07/29/2020 Telephone [facility] Krishna Shrama MD Care Coordination [facility] Address Alert - Do Not [place] [facility] [address] [place] [address] Social History Tobacco Use Types Packs/Day Years Used Date Smoking Tobacco: Former Cigarettes Quit : 06/03/2012 Smokeless Tobacco: Never Alcohol Use Standard Drinks/Week Comments Not Currently 0 (1 standard drink = 0.6 oz pure alcoho l) Sex Assigned at Date Recorded Male 08/18/2020 8:31 PM PST documented as of this encounter Miscellaneous Notes Telephone Encounter - Ginna Peralta RN - 08/05/2020 8:39 AM PST Discussed with Ganga Huber RN CPT at [facility]. Ganga able to come in on time/date when pt was scheduledwith RN. Ganga was going to contact pt however eCare will be sent to confirm switch of appt. Pt changed appts to telemed last week- vendor telemed appt not needed on schedule and will cancel once confirmed with pt and [facility] hand edge bander. Telephone Encounter - Maged Cameron RN - 07/29/2020 10:37 AM PST Sent email to ask Ganga if he could train pt in clinic that day. Telephone Encounter - Ginna Peralta RN - 07/29/2020 8:53 AM PST Images from the original note were not included. Denise Sharma MD You; [facility] Clinical Cylinder Grinder 5 minutes ago (8:46 AM) Edis Chacko, I remember we both discussing about Mauri using control IQ on the background of gastroparesis; I will revisit this with him when I see him. In the meantime, you/RN team may please go ahead and put him in touch with Ganga so that he can go through formal control IQ training; he certainly cannot skip the training part. Thanks. Message text I will reach out to the T[employer] team to help schedule training. Did you want pt to still come in on 08/21 to see you for appt? Will ask front desk clerk to cancel RN appt for same day. Telephone Encounter - Ginna Peralta RN - 07/29/2020 8:[address] Sharma- returned to office today and was looped in by Meghna and Anette regarding upcoming appt with pt. I will be out of office the day he is seeing you (08/21/20) however I did look into what has been happening. Per documentation he had the older Tandem pump, skipped Basal IQ and self started on Control IQ- is this correct? Pt will need thorough training offered by [facility] hand edge bander (despite his previous use of a Tandem pump)and RN's can supplement any follow-ups needed. Are you ok with RN's reaching out to Ganga to schedule a formal Control IQ training- also due to pt's diagnosis of gastroparesis- should we look into getting pump switched to a Basal IQ model? Extended bolusing on Control IQ is capped at 2 hours and typically gastroparesis patients use extended bolusing beyond this time frame. DME companies (like [employer]) have been shipping patients the newest model without the provider's input- see in Media from 02/17/20- no mention of Tandem Control IQ (only "insulin pump"). I can contact Ryan at [facility] for a pump exchange if appropriate. Please advise on next steps. documented in this encounter Plan of Treatment Not on filedocumented as of this encounter Visit Diagnoses Not on filedocumented in this encounter Additional Health Concerns Assessment Noted Time PHQ-9 Depression Total Score: 9 06/03/2020 11:45 AM PS T documented as of this encounter Care Teams Chief Minister Relationship Specialty Start Date End Date Quinten Prasad MD PCP - General Family Practice 06/03/20 04/07/21 [address] [place] [address] documented as of this encounter
--- OUTSIDE RECORDS SUMMARY | 2022-07-24 16:34 | External Medical Summary | Encounter Summary ---
:1985 Author Organization [facility] Address [address] [place] [address] Care Team Providers Name Role Phone Quinten Prasad MD Primary Care Provider Reason for Visit Reason Onset Date Comments Hospital Follow-up 01/15/2021 TCM Encounter Details Date Type Department Care Team Description 01/15/2021 Telephone [facility] Primary Gisell Torres i, RN Hospital Follow-up Care Family Medicine [address] [facility] (TCM) at [place] [facility] [id number] [place] [phone] Social History Tobacco Use Types Packs/Day Years Used Date Smoking Tobacco: Former Cigarettes Quit : 06/03/2012 Smokeless Tobacco: Never Alcohol Use Standard Drinks/Week Comments Not Currently 0 (1 standard drink = 0.6 oz pure alcoho l) Sex Assigned at Date Recorded Male 08/18/2020 8:31 PM PST documented as of this encounter Miscellaneous Notes Telephone Encounter - Antonietta Torres RN - 01/15/2021 9:35 AM PDT Transitional Care Management (TCM) - Post-Discharge Communication within 2 business days Hospital Name: [facility] Hospital Admission date: 01/10/21 Hospital Discharge date: 01/14/21 Reason for Hospitalization: DKA Discharge Provider: Dr Deangelo Basilio Contact within two business days of discharge date: YES Reached patient - pt reports he is doing ok.Pt reports he still has not established with a new PCP, but he will continue to do f/u with Dr Sharma at [facility] [place], with telemed visits. At this time he declines f/u Telemed appt with Dr Prasad, as he notes that is DKA was d/t his gastroparesis, and that this has been recurrent over the last several years. Reinforced the importance of establishing care with new PCP. Contact type: Telephone Patient scheduled for visit with provider (within 7 days high complexity or within 14th days for moderate complexity) Appointment Date: Pt declined at this time. documented in this encounter Plan of Treatment Not on filedocumented as of this encounter Visit Diagnoses Not on filedocumented in this encounter Additional Health Concerns Assessment Noted Time PHQ-9 Depression Total Score: 9 06/03/2020 11:45 AM PS T documented as of this encounter Care Teams Fretted Instruments Inspector Relationship Specialty Start Date End Date Quinten Prasad MD PCP - General Family Practice 06/03/20 04/07/[address] [place] [address] documented as of this encounter
--- OUTSIDE RECORDS SUMMARY | 2022-07-24 16:34 | External Medical Summary | Encounter Summary ---
:1985 Author Organization [facility] [place] Address [address] [place] [address] Care Team Providers Name Role Phone Pcp, None Primary Care Provider Unavailable Reason for Visit Reason Onset Date Comments Medication Management 03/27/2020 Encounter Details Date Type Department Care Team Description 03/27/2020 Telephone [facility] Primary Quinten Prasad MD Medication Management Care Family Medicine [address] [place] [address] [place] [address] [phone] Social History Tobacco Use Types Packs/Day Years Used Date Smoking Tobacco: Never Smokeless Tobacco: Never Alcohol Use Standard Drinks/Week Comments Not Currently 0 (1 standard drink = 0.6 oz pure alcoho l) Sex Assigned at Date Recorded Male 08/18/2020 8:31 PM PST documented as of this encounter Miscellaneous Notes Telephone Encounter - Rhoda Perry - 03/27/2020 3:27 PM PDT RETURN CALL: Voicemail - Detailed Message SUBJECT: Medication Questions NAME OF MEDICATION(S): fluvoxaMINE 100 MG tablet & ondansetron 4 MG disintegrating tablet CONCERNS/QUESTIONS: Pharmacy states they did not receive the script & that patient has no refills ADDITIONAL INFORMATION: Please fax to: [facility] [address] [address] [facility] [phone] Thank you! documented in this encounter Plan of Treatment Not on filedocumented as of this encounter Visit Diagnoses Diagnosis Mood disorder (HCC) Unspecified episodic mood disorder Diabetic gastroparesis associated with t ype 1 diabetes mellitus (HCC) documented in this encounter Additional Health Concerns Assessment Noted Time PHQ-9 Depression Total Score: 9 01/15/2020 2:00 PM PDT documented as of this encounter Care Teams Ostrich Farmer Relationship Specialty Start Date End Date Pcp, None PCP - General 07/26/19 06/02/20 Identifies patients without a PCP or unassigned documented as of this encounter
--- OUTSIDE RECORDS SUMMARY | 2022-07-24 16:34 | External Medical Summary | Encounter Summary ---
:1985 Author Organization [facility] Address [address] [place] [address] Care Team Providers Name Role Phone Pcp, None Primary Care Provider Unavailable Reason for Visit Reason Onset Date Comments Appointment 11/28/2019 Encounter Details Date Type Department Care Team Description 11/28/2019 Telephone [facility] Krishna Sharma MD Appointment [facility] Address Alert - Do Not [address] [place] [address] Social History Tobacco Use Types Packs/Day Years Used Date Smoking Tobacco: Never Smokeless Tobacco: Never Alcohol Use Standard Drinks/Week Comments Not Currently 0 (1 standard drink = 0.6 oz pure alcoho l) Sex Assigned at Date Recorded Male 08/18/2020 8:31 PM PST documented as of this encounter Miscellaneous Notes Telephone Encounter - Zenaida Miller - 11/28/2019 12:41 PM PDT Called patient to schedule 2 month follow up. Left for call back. CCR: please assist with scheduling documented in this encounter Plan of Treatment Not on filedocumented as of this encounter Visit Diagnoses Not on filedocumented in this encounter Care Teams Sql Database Programmer Relationship Specialty Start Date End Date Pcp, None PCP - General 07/26/19 06/02/20 Identifies patients without a PCP or unassigned documented as of this encounter
--- OUTSIDE RECORDS SUMMARY | 2022-07-24 16:34 | External Medical Summary | Encounter Summary ---
:1985 Author Organization [facility] Address [address] [place] [address] Care Team Providers Name Role Phone Quinten Prasad MD Primary Care Provider Encounter Details Date Type Department Care Team Description 08/20/2020 Travel Subj: Questionn aire Submission Social History Tobacco Use Types Packs/Day Years [...] / COVID-19? documented as of this encounter Plan of Treatment Not on filedocumented as of this encounter Visit Diagnoses Not on filedocumented in this encounter Additional Health Concerns Infection Onset Date Last Indicated Resolved Time R/O COVID-19 08/20/2020 08/20/2020 08/20/2020 1:25 PM PST Assessment Noted Time PHQ-9 Depression Total Score: 9 06/03/2020 11:45 AM PS T documented as of this encounter Care Teams [employer] Sales Manager Relationship Specialty Start Date End Date Quinten Prasad MD PCP - General Family Practice 06/03/20 04/07/[address] [place] [address] documented as of this encounter
--- OUTSIDE RECORDS SUMMARY | 2022-07-24 16:34 | External Medical Summary | Encounter Summary ---
:1985 Author Organization [facility] Address [address] [place] [address] Care Team Providers Name Role Phone Quinten Prasad MD Primary Care Provider Reason for Visit Reason Onset Date Comments Appointment 07/28/2020 In-person appt 08/21 Encounter Details Date Type Department Care Team Description 07/28/2020 Telephone [facility] (In-person appt 08/21) [place] Address Alert - Do Not [address] [place] [address] Social History Tobacco Use Types [...] this encounter Miscellaneous Notes Telephone Encounter - Nel Stanton - 07/28/2020 2:55 PM PST Edis Sharma Mauri Levine is scheduled for a follow-up with you on , 08/21 @12:30pm. Is in-person ok with you? He prefers to come in since he is also scheduled w/RN for Tandem training that day. Thank you! -Nel documented in this encounter Plan of Treatment Not on filedocumented as of this encounter Visit Diagnoses Not on filedocumented in this encounter Additional Health Concerns Infection Onset Date Last Indicated Resolved Time R/O COVID-19 08/20/2020 08/20/2020 08/20/2020 1:25 PM PST Assessment Noted Time PHQ-9 Depression Total Score: 9 06/03/2020 11:45 AM PS T documented as of this encounter Care Teams Social Media Senior Associate Relationship Specialty Start Date End Date Quinten Prasad MD PCP - General Family Practice 06/03/20 04/07/[address] [place] [address] documented as of this encounter
--- OUTSIDE RECORDS SUMMARY | 2022-07-24 16:34 | External Medical Summary | Encounter Summary ---
:1985 Author Organization [facility] Address [address] [place] [address] Care Team Providers Name Role Phone Quinten Prasad MD Primary Care Provider Reason for Visit Reason Comments Diabetes Encounter Details Date Type Department Care Team Description 08/21/2020 Telemedicine [facility] Denise Conti, Dx : Type 1 diabetes Gulshan Floyd Diabetes mellitus with [place] Address Alert - Do hyperglycemia (HCC) [address] Not Mail (Primary Dx) [place] [address] Social History Tobacco Use Types [...] / COVID-19? documented as of this encounter Last Filed Vital Signs Vital Sign Reading Time Taken Comments Blood Pressure - - Pulse - - Temperature - - Respiratory Rate - - Oxygen Saturation - - Inhaled Oxygen Concentration - - Weight - - Height 170 cm (5' 6.93") 08/21/2020 12:21 PM PST Body Mass Index - - documented in this encounter Patient Instructions Patient InstructionsDenise Sharma MD - 08/21/2020 12:30 PM PST 1. Continue the current basal insulin rates for Tandem t:slim X2 pump with control IQ: 12 AM 1.2, 2 AM 1.1, 7 AM 1.0, and 7 PM 1.2 units/h respectively. 2. No change in the meal-related bolus insulin settings: insulin to carb ratio of 1:12, correction factor 40, and target blood glucose of 110 mg/dL. Active insulin time: 5 hours. 3. Continue monitoring with Dexcom G6 CGM. 4. No other change in the plan of management. 5. Follow-up after 3 months. Denise Sharma MD Clinical equal opportunity representative Division of Metabolism, Endocrinology and Nutrition [facility] documented in this encounter Progress Notes Denise Sharma MD - 08/21/2020 12:30 PM PST Images from the original note were not included. [facility] Diabetes [place] [facility] Diabetes Follow-up Visit Note DEMOGRAPHIC INFORMATION Patient Name: Mauri Maradiaga Age/ Sex: 34 year old male Date of : 1985 Address: [address] [place] [id number] Service Date: 08/21/2020 Trader Fixed Income: Denise Sharma MD Distant Site Telemedicine Encounter I conducted this encounter from [facility] via secure, live, [id number] video conference with the patient. Mauri was located at his home. Prior to the interview, the risks and benefits of telemedicine were discussed with the patient and verbal consent was obtained. CHIEF COMPLAINT/ PURPOSE OF VISIT Mr. Mauri Maradiaga is a 34 year old male who presents today for follow-up evaluation and management of Type 1 diabetes. I had last seen him on 05/07/2020. SUBJECTIVE HISTORY OF PRESENT ILLNESS INTERVAL HISTORY: Since last visit, he is continuing with the basal insulin rate for the Tandem t:slim X2 pump with control IQ of 12 AM 1.2, 2 AM 1.1, 7 AM 1.0, and 7 PM 1.2 units/h respectively; the meal-related bolus insulin settings are: insulin to carb ratio of 1:12, correction factor 40, and target blood glucose of 110 mg/dL. Active insulin time: 5 hours. He is continuing to monitor glycemic profile with Dexcom G6 CGM, as part of hybrid close-loop system. The total daily dose of insulin is around 40 units with distribution of basal to bolus insulin being50% to 50%. His daily carbohydrate intake is about 115 g. His glycemic control although suboptimal, has improved significantly since last assessment with control IQ (implemented in late-Feb/early-Mar). 30-day sensor data with 87% sensor use time reveals an average sensor glucose of 163 mg/dL, standard deviation 61, CV 37.2% and GMI 7.2%. 69% of the readingsare in time in range, 19% or between 181-250, 10% or greater than 250, 1% are below 70 mg/dL, and <1% are <54 mg/dL. Overall glycemic pattern has improved significantly compared to last review. He has had no episodes of diabetic ketoacidosis since last evaluation. He did have an episode of severe hypo in Jun 2020. With gastric pacemaker (put on 01/30/2020), his symptoms of gastroparesis have remarkably reduced. Hestates that his overall QoL has improved with this. He did however had an ER visit to [facility], on 08/12/2020 due to GI symptoms; he had starvation ketosis but no DKA. The lab work during this hospitalization revealed serum creatinine of 2.49, eGFR 30, and A1c of 10.4%. His A1c on 02/13/2020 was 9.7%. Earlier lab work on 03/14/2020 had revealed worsening renal functions; his creatinine had gone up to 4 mg/dL and eGFR had dropped to 18. He is up-to-date with his ophthalmology review. The retinopathy status is reportedly stable. He is continuing to receive Avastin injections for macular edema. The symptoms of peripheral neuropathy are stable. His blood pressure has been fluctuating of late with some elevations. His weight has remained stable. RELEVANT HISTORY OF PAST VISIT: Mauri Maradiaga was diagnosed with type 1 diabetes in 1999 (at the age of 13 years). He had diabetic ketoacidosis at diagnosis. He has been on insulin since then. He currently has Medicaid as his primary insurance with Medicaid as a secondary insurance. His glycemic control had been poor; his A1c at [facility] on 08/11/2019 was 10.4% and atlast visit (01/15/2020) was 9.9%. For the preceding [...] furosemide, on and off, as per his harness mender's guidance. Since diagnosis, over the last 2 [...] he has been following up with his harness mender. Few months ago, his eGFR had dropped to low 20s with creatinine going up to 3.36 (which his fiance attributed to the episode of ketoacidosis and dehydration), and more recent evaluation done at [facility] few weeks ago, reportedly showed eGFR [...] although he has been advised by his urologist physician to be cautious in termsof dose escalation [...] to type 1 diabetes mellitus (HCC) [E10.22, N18.30] 10/11/2019 Macular degeneration [H35.30] 10/11/2019 Diabetic gastroparesis associated with type 1 diabetes mellitus (HCC) [E10.43, K31.84] 11/29/2018 Type 1 diabetes mellitus with neurological manifestations (HCC) [E10.49] 11/29/2018 Essential hypertension [I10] 11/29/2018 Current Outpatient Medications Medication Sig Dispense Refill atorvastatin 40 MG tablet take 1 tablet by mouth every evening 90 tablet 3 BD Luer-Urszula Syringe 25G X 1" 3 ML miscellaneous USE WITH PROMETHAZINE carVEDilol 3.125 MG tablet take 1 tablet [...] 360 capsule 3 ketamine 50 MG/ML solution Houstonia 50 mg in the nostril 3 times a day as needed. lisinopril 5 MG tablet Take 5 mg by mouth daily. LORazepam 0.5 MG tablet Take 0.5 mg by mouth 3 times a day as needed. melatonin 10 MG tablet Take by mouth at bedtime as needed. Multiple Vitamins-Minerals (MULTIVITAMIN ADULT OR) Take by mouth. NovoLOG 100 UNIT/ML injection Use up to 70 units daily via insulin pump. 70 mL 3 ondansetron 4 MG disintegrating tablet dissolve 1 tablet ON TONGUE every 6 hours if needed for nausea 60 tablet 1 Other Meds (See Sig/Instructions) Take 10 mg by mouth. domperidone promethazine 25 MG/ML solution Inject 12.5 mg intramuscularly every 6 hours as needed. tadalafil 10 MG tablet Take 1 tablet (10 mg) by mouth daily. 90 tablet 3 True Metrix Blood Glucose Test strip 3 times a day. No current facility-administered medications for this visit. PAST MEDICAL HISTORY/SURGICAL HISTORY has a past medical history of Anxiety, Depression, Diabetic neuropathy (HCC), Erectile dysfunction,Gastroparesis due to DM ([facility]), and Type 1 diabetes ([facility]). has a past surgical history that includes ANES; REVISE/REPAIR FINGER/TOE NERVE. FAMILY HISTORY/SOCIAL HISTORY/ALLERGIES family history is not on file. He was adopted. 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 OBJECTIVE PHYSICAL EXAM Vitals: 08/21/20 1221 Height: 5' 6.93" (1.7 m) Body mass index is 33.9 kg/m. Wt Readings from Last 3 Encounters: 06/03/20 216 lb (98 kg) 03/13/20 186 lb (84.4 kg) 01/15/20 187 lb (84.8 kg) BP Readings from Last 3 Encounters: 06/03/20 (!) 171/101 03/13/20 111/76 01/15/20 (!) 140/97 GENERAL: Awake, alert and is not in any distress RESPIRATORY: normal breathing efforts, no tachypnea PSYCHIATRIC: mood and affect are normal OUTSIDE [...] Results Component Value Date TSH 1.003 01/15/2020 Lab Results Component Value Date GLUCOSE 164 (H) 03/14/2020 GLUCOSE 165 (H) 03/14/2020 SODIUM 138 03/14/2020 POTASSIUM 3.7 03/14/2020 CL 92 (L) 03/14/2020 CO2 37 (H) 03/14/2020 BUN 52 (H) 03/14/2020 CREATININE 4.06 (H) 03/14/2020 GFR 18 (L) 03/14/2020 PROTEIN 7.0 03/14/2020 ALBUMIN 4.3 03/14/2020 ALT 15 03/14/2020 AST 16 03/14/2020 ALK 101 03/14/2020 CA 8.9 03/14/2020 Results for MAURI MARADIAGA ( ) as of 05/05/2020 19:30 Ref. Range 02/13/2020 12:10 03/14/2020 10:37 C-Peptide Latest Ref Range: 1.1 - 4.4 ng/mL 0.1 (L) 0.2 (L) No results found for: ALBCREATRATU OUTSIDE LABS reviewed in Care Everywhere and Media. 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 With insertion of gastric pacemaker, his gastroparesis symptoms have overall remarkably improved. Retinopathy status is reportedly stable; recent blood work-up reviewed and discussed. He is following up with harness mender for his CKD. He has upgraded to tandem t:slim X2 pump with control IQ and this has helped improve his glycemic control. No other changes were made to the plan of management. Will continue to monitor with Dexcom G6 CGM and follow-up in the clinic after three months. After visit summary given to patient. 1. Continue the current basal insulin rates for Tandem t:slim X2 pump with control IQ: 12 AM 1.2, 2 AM 1.1, 7 AM 1.0, and 7 PM 1.2 units/h respectively. 2. No change in the meal-related bolus insulin settings: insulin to carb ratio of 1:12, correction factor 40, and target blood glucose of 110 mg/dL. Active insulin time: 5 hours. 3. Continue monitoring with Dexcom G6 CGM. 4. No other change in the plan of management. 5. Follow-up after 3 months. Orders Placed This Encounter CONTINUOUS GLUCOSE MONITORING ANALYSIS I&R I spent 40 minutes on this patient's care today including pre- and post-time. The narrative sections of this document were dictated using Client24 voice recognition software. Despite reasonable efforts to avoid door technician errors, the note may contain sound-alike and unintended word substitutions. Please feel free to get in touch with our office if you have any concerns. Denise Sharma MD Clinical equal opportunity representative Division of Metabolism, Endocrinology and Nutrition [facility] documented in this encounter Plan of Treatment Not on filedocumented as of this encounter Procedures Procedure Name Priority Date/Time Associated Diagnosis Comme nts DE CONTINUOUS GLUCOSE Routine 08/21/2020 12:41 PM Type 1 diabe reji mellitus MONITORING ANALYSIS PST with hyperglycemia (H CC) I&R documented in this encounter Visit Diagnoses Diagnosis Type 1 diabetes mellitus with hyperglyce nancy (HCC) - Primary Type I (juvenile type) diabetes mellitus without mention of complication, not stated as uncontrolled Long-term insulin use (HCC) Encounter for long-term (current) use of insulin Insulin pump in place Insulin pump status Dyslipidemia Other and unspecified hyperlipidemia Essential hypertension Unspecified essential hypertension Retinopathy due to unstable type 1 diabe reji mellitus (HCC) CKD stage 3 due to type 1 diabetes melli tus ([facility]) Type 1 diabetes mellitus with diabetic p olyneuropathy (HCC) Type I (juvenile type) diabetes mellitus with neurological manifestations, not stated as uncontrolled 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 diabe reji mellitus (HCC) Type I (juvenile type) diabetes mellitus with other specified manifestations, not stated as uncontrolled Diabetic gastroparesis associated with t ype 1 diabetes mellitus (HCC) Presence of gastric pacemaker documented in this encounter Additional Health Concerns Assessment Noted Time PHQ-9 Depression Total Score: 9 06/03/2020 11:45 AM PS T documented as of this encounter Care Teams Manager Medicare Relationship Specialty Start Date End Date Quinten Prasad MD PCP - General Family Practice 06/03/20 04/07/[address] [place] [address] documented as of this encounter
--- OUTSIDE RECORDS SUMMARY | 2022-07-24 16:34 | External Medical Summary | Encounter Summary ---
:1985 Author Organization [facility] Address [address] [place] [address] Care Team Providers Name Role Phone Quinten Prasad MD Primary Care Provider Reason for Visit Reason Onset Date Comments Forms Completion 10/08/2020 Encounter Details Date Type Department Care Team Description 10/08/2020 Telephone [facility] [place] Prasad MD Forms Completion Family Medicine at [address] [place] [address] [address] [place] [address] [phone] Social History Tobacco Use Types Packs/Day Years Used Date Smoking Tobacco: Former Cigarettes Quit : 06/03/2012 Smokeless Tobacco: Never Alcohol Use Standard Drinks/Week Comments Not Currently 0 (1 standard drink = 0.6 oz pure alcoho l) Sex Assigned at Date Recorded Male 08/18/2020 8:31 PM PST documented as of this encounter Miscellaneous Notes Telephone Encounter - Juan Pablo Gomez - 10/09/2020 10:11 AM PDT Routing to PCP to please advise regarding patients message/request. Letter pended for completion and approval. Thanks! Telephone Encounter - Angela Agosto - 10/08/2020 12:57 PM PDT RETURN CALL: Voicemail - Detailed Message SUBJECT: Form/Letter/Paperwork Request DATE NEEDED BY: destiny AIRLINE RESERVATION AGENT/FAX/MAIL: discuss with patient ADDITIONAL INFORMATION: patient is wanting to have a letter written for his cat to be an TIMUR, he is moving and needs the letter for his apartment, he also states he would like to continue care during move until [place] [facility] documented in this encounter Plan of Treatment Not on filedocumented as of this encounter Visit Diagnoses Not on filedocumented in this encounter Additional Health Concerns Infection Onset Date Last Indicated Resolved Time R/O COVID-19 10/09/2020 10/09/2020 11/20/2020 7:56 PM PDT Assessment Noted Time PHQ-9 Depression Total Score: 9 06/03/2020 11:45 AM PS T documented as of this encounter Care Teams Virtual Classroom Manager Relationship Specialty Start Date End Date Quinten Prasad MD PCP - General Family Practice 06/03/20 04/07/21 [address] [place] [address] documented as of this encounter
--- OUTSIDE RECORDS SUMMARY | 2022-07-24 16:34 | External Medical Summary | Encounter Summary ---
:1985 Author Organization [facility] Address [address] [place] [address] Care Team Providers Name Role Phone Quinten Prasad MD Primary Care Provider Reason for Visit Reason Onset Date Comments Referral 10/08/2020 Repeat Request 10/08/2020 Encounter Details Date Type Department Care Team Description 10/08/2020 Telephone [facility] Primary Quinten Prasad MD Referral; Repeat Care Family Medicine [address] [place] [address] [place] [address] [phone] Social History Tobacco Use Types Packs/Day Years Used Date Smoking Tobacco: Former Cigarettes Quit : 06/03/2012 Smokeless Tobacco: Never Alcohol Use Standard Drinks/Week Comments Not Currently 0 (1 standard drink = 0.6 oz pure alcoho l) Sex Assigned at Date Recorded Male 08/18/2020 8:31 PM PST documented as of this encounter Miscellaneous Notes Addendum Note - Cesario Montero - 12/03/2020 9:30 AM PDT Addended by: CESARIO MONTERO on: 12/03/2020 09:30 AM Modules accepted: Orders Telephone Encounter - Bryanna Marcus - 11/12/2020 12:33 PM PDT Images from the original note were not included. Received Auth from [employer], however dates are incorrect Called David @ [phone] to see if I could update auth dates to 03/25/2020 - 07/17/2021. Spoke to David Reyes is unable retro date an authorization. Requested start date of when requestwas received. Chrissy approved original request and will update Auth to reflect the following dates: 10/22/2020 - 07/17/2021 Received updated Auth fax from David: Pt's gastroenterology referral updated and faxed to [facility] Pt advised and will f/u with [facility] to schedule Telephone Encounter - Phyllis Irby, Coordinator - 10/29/2020 11:48 AM PDT Spoke to [employer]- Amy Del Valle They say they received the OON request on 10/20/2020 not on 10/15/2020- the OON request is still under review. We should have a response within the next week Telephone Encounter - Tana Cross - 10/20/2020 11:59 AM PDT Referral determination pending. Once we receive an outcome can notify patient. Insurance seldom approves retro referrals. Patient should also receive a letter from plan. Telephone Encounter - Rochelle Jones - 10/14/2020 8:54 AM PDT Images from the original note were not included. Could not scan below form into media. Saved in the G drive>Referral Team>Insurance>David Forms. Below form faxed to David along with 03/13/2020 & 09/23/2020 OV notes, VM records and referral. Telephone Encounter - Nina Noyola - 10/13/2020 3:29 PM PDT Referral to Gastroenterology pended for provider to review This would be a retro referral for a follow up appointment to Dr. Trey Mojica from 03/25/2020 for a Gastric Pacemaker Chart notes are scanned into Ki[employer] *Once referral is signed by provider referral team will need to submit a manual request for a retro referral to [employer] as you cannot load these via [facility] Send referral, [facility] chart notes from [facility] form Telephone Encounter - Mily Jaimes - 10/13/2020 3:07 PM PDT Patient called back and request for the retro referral. Telephone Encounter - Nina Noyola - 10/13/2020 12:17 PM PDT *Call to patient to confirm date this is to be requested. Patient Plan effective 03/18/20. Called [facility] and patient last see 03/25/2020 and 06/24/2020 -Possible retro referral to 03/25/2020 Patients line had no voicemail. *CCR if patient returns call, please confirm date range patient is looking for this referral. Is this a retro referral ? Once information received from patient route to P [facility] Referral Pool Telephone Encounter - Juan Pablo Gomez - 10/13/2020 11:55 AM PDT Record received from [facility] and scanned under Kiip. Records also available via Care Everywhere. Routing to referral pool as . Thanks! Telephone Encounter - Charissa Watson - 10/13/2020 11:11 AM PDT RETURN CALL: Voicemail - Detailed Message SUBJECT: General Message MESSAGE: patient is calling on the status of the referral and prior auth that was supposed to be sent to Dr. Mojica at [facility]?. Please advise thank you Telephone Encounter - Phyllis Irby, Coordinator - 10/09/2020 1:32 PM PDT Spoke to Mauri- He saw GI Dr Ita Dye in [facility]- she referred patient to Dr Yunior Mojica is the only GI provider in the area that places First date of services gastric pacemakers. Mauri is calling [facility] to get records,so we may submit with out out of network referral. The records will also tell us when Mauri first received care, as he cannot remember the dates of service I called Ita Nevarez office [phone], they will send over there chart notes [facility]: please be on the lookout for these incoming chart notes, once received- please return this message to the referral team pool Postponing a few days, to recheck if chart notes have arrived Telephone Encounter - Angela Agosto - 10/08/2020 12:50 PM PDT RETURN CALL: Voicemail - Detailed Message SUBJECT: Referral Request/Questions REASON FOR REFERRAL: Gastro paresis, patient had implant of a gastric pacemaker NAME OF CLINIC/SPECIALTY: Gastroenterology PROVIDER: Trey Mojica MD PHONE: [phone] FAX: ADDITIONAL INFORMATION: patient states that his insurance is requiring a referral for prior authorization documented in this encounter Plan of Treatment Not on filedocumented as of this encounter Visit Diagnoses Diagnosis Diabetic gastroparesis (HCC) - Primary 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
--- OUTSIDE RECORDS SUMMARY | 2022-07-24 16:34 | External Medical Summary | Encounter Summary ---
:1985 Author Organization [facility] Address [address] [place] [address] Care Team Providers Name Role Phone Pcp, None Primary Care Provider Unavailable Encounter Details Date Type Department Care Team Description 01/04/2020 Orders Only Medicine Primary Care Sa sonya Weller [facility] Medicine at [facility] Kaycee, LEAD RELAY TESTER [address] [place] [address] [id number] [place], [place] Social History Tobacco Use Types Packs/Day Years [...] on filedocumented in this encounter Care Teams Filter Cleaner Relationship Specialty Start Date End Date Pcp, None PCP - General 07/26/19 06/02/20 Identifies patients without a PCP or unassigned documented as of this encounter
--- OUTSIDE RECORDS SUMMARY | 2022-07-24 16:34 | External Medical Summary | Encounter Summary ---
:1985 Author Organization [facility] Address [address] [place] [address] Care Team Providers Name Role Phone Pcp, None Primary Care Provider Unavailable Reason for Visit Reason Comments Diabetes Encounter Details Date Type Department Care Team Description 05/07/2020 Telemedicine [facility] Denise Sharma, Dx : Type 1 diabetes Gulshan Yang MD mellitus with [place] Address Alert - Do hyperglycemia (HCC) [address] Not Mail (Primary Dx) [place] [address] Social History Tobacco Use Types Packs/Day Years Used Date Smoking Tobacco: Never Smokeless Tobacco: Never Alcohol Use Standard Drinks/Week Comments Not Currently 0 (1 standard drink = 0.6 oz pure alcoho l) Sex Assigned at Date Recorded Male 08/18/2020 8:31 PM PST documented as of this encounter Patient Instructions Patient InstructionsNaiDenise casanova MD - 05/07/2020 11:30 AM PDT 1. Revised basal insulin rate for the Tandem t:slim X2 pump with control IQ: 12 AM 1.2, 2 AM 1.1, 7 AM 1.0, and 7 PM 1.2 units/h respectively. 2. Change in the meal-related bolus insulin settings: insulin to carb ratio of 1:12, correction factor 40, and target blood glucose of 110 mg/dL. Active insulin time: 5 hours. 3. Continue monitoring with Dexcom G6 CGM. 4. Share the T connect and Dexcom data with our clinic and send an [employer] message for us to review, after 6 weeks. 5. No other change in the plan of management. 6. Follow-up after 3 months. Denise Sharma MD Clinical motion picture camera operator Division of Metabolism, Endocrinology and Nutrition [facility] documented in this encounter Progress Notes Denise Sharma MD - 05/07/2020 11:30 AM PDT Images from the original note were not included. [facility] Diabetes [place] at [facility] Diabetes Follow-up Visit Note Distant Site Telemedicine Encounter I conducted this encounter from [facility] via secure, live, [id number] video conference with the patient. Mauri was located at his home accompanied by his fiance. Prior to the interview, the risks and benefits of telemedicine were discussed with the patient and verbal consent was obtained. DEMOGRAPHIC INFORMATION Patient Name: Mauri Levine Age/ Sex: 34 year old male Date of : 1985 Address: [address] [place] [address] Service Date: 05/07/2020 Technology Specialist: Denise Sharma MD CHIEF COMPLAINT/ PURPOSE OF VISIT Mr. Mauri Levine is a 34 year old male who presents today for follow-up evaluation and management of Type 1 diabetes. I had last seen him on 03/13/2020. SUBJECTIVE HISTORY OF PRESENT ILLNESS INTERVAL HISTORY: Since last evaluation, he has been using the basal insulin rates of 12 AM 1.2, 2 AM 1.0, 7 AM 1.0, and 7 PM 1.2 units/h respectively; the meal-related bolus insulin settings are: insulin to carb ratio of 1:18, correction factor of 50 and target blood glucose of 140 mg/dL. Surprisingly, a few days ago,he received Tandem t:slim X2 pump with control IQ functionality, without he having been trained withthe system and used basal IQ. Moreover, his gastroparesis could pose additional challenge for the use of control IQ. However, he and his fiance, based upon his prior experience with Tandem G4 pump, have tried to learn using control IQ and he has been using it. The only settings that he is unable to m odify or a target blood glucose of 110 mg/dL and an active insulin time of 5 hours. Otherwise, he has been using the above-mentioned settings with the current pump as well. His distribution of basal tobolus insulin is 65% to 35%; his daily carbohydrate intake is about 115 g and total daily dose of insulin is about 40-42 units. His glycemic control is suboptimal. His A1c on 02/13/2020 was 9.7%. He is continuing to monitor his glucose profile with Dexcom G6 CGM system. Data from Dexcom G6 download are shown below. The CGM metrics and parameters were reviewed and discussed with him. 14-day sensor data with 93% sensor use time reveals an average sensor glucose of 205 mg/dL, standard deviation 80, severe 39.1% and GMI 8.2%. 43% of the readings are in time in range, 34% or between 181-250, 22% or greater than 250, and less than 1% are below 70 mg/dL. None of the values have been below 54 mg/dL. He is demonstrating persistent hyperglycemia with significant variability. He has had no episodes of diabetic ketoacidosis or episodes of severe hypoglycemia since last evaluation. His fianc mentions that he is no longer tending to overcorrect episodes of hyperglycemia withresultant significant drop in blood glucose levels. She also mentions, however, that his adherence to prescribed regimen has improved since previous assessment. He has met with his project financial analyst few weeks ago; his retinopathy status is reportedly stable. He is continuing to receive Avastin injections for macular edema. Recent lab work had revealed worsening renal functions; his creatinine had gone up to 4 mg/dL and eGFR had dropped to 18. He states that hisserum creatinine has come down now to 2.3 mg/dL (done at [facility] and we don't have the results for review). The symptoms of peripheral neuropathy are stable. He had a gastric pacemaker put on January 30, 2020, and mentions that this has immensely helped in terms of reducing the symptoms of gastroparesis; he mentions an approximate 50-60% improvement in his GI symptoms; however, during today's visit, he was feeling quite nauseated and sick, and was lying in the bed all the time. His fiance mentions that today has been one of his "bad days". His blood pressure is well controlled. His [...] control had been poor; his A1c at [facility] on 08/11/2019 was 10.4% and [facility] visit (01/15/2020) was 9.9%. For the preceding [...] furosemide, on and off, as per his marriage and family counselor's guidance. Since diagnosis, over the last 2 [...] he has been following up with his marriage and family counselor. Few months ago, his eGFR had dropped to low 20s with creatinine going up to 3.36 (which his fiance attributed to the episode of ketoacidosis and dehydration), and more recent evaluation done at [facility] few weeks ago, reportedly showed [...] although he has been advised by his meat butcher to be cautious in termsof dose escalation [...] 360 capsule 3 ketamine 50 MG/ML solution Tracy 50 mg in the nostril 3 times [...] neuropathy (HCC), Erectile dysfunction,Gastroparesis due to DM (HCC), and Type 1 diabetes (HCC). has a past surgical history that includes [...] systems is otherwise negative. OBJECTIVE PHYSICAL EXAM There were no vitals filed for this visit. There is no height or weight on file to calculate BMI. Wt Readings from Last 3 Encounters: 03/13/20 186 lb (84.4 kg) 01/15/20 187 lb (84.8 kg) 01/15/20 190 lb (86.2 kg) BP Readings from Last 3 Encounters: 03/13/20 111/76 01/15/20 (!) 140/97 01/15/20 (!) 134/90 GENERAL: Awake, alert and is in some distress primarily due to gastroparesis, lying in the bed RESPIRATORY: normal breathing efforts, no tachypnea PSYCHIATRIC: [...] 03/14/2020 CA 8.9 03/14/2020 Results for MAURI LEVINE ( ) as of 05/05/2020 19:30 Ref. Range 02/13/2020 12:10 03/14/2020 10:37 C-Peptide Latest Ref Range: 1.1 - 4.4 ng/mL 0.1 (L) 0.2 (L) No results found for: ALBCREATRATU OUTSIDE LABS reviewed in Care Everywhere and Media. ASSESSMENT & PLAN (E10.65) Type 1 diabetes mellitus with hyperglycemia (HCC) (primary encounter diagnosis) (Z96.41) Insulin pump in place (Z79.4) Long-term insulin use (HCC) (E78.5) Dyslipidemia (I10) Essential hypertension (E10.319, E10.65) [...] pacemaker, his gastroparesis symptoms have overall remarkably improved (although today he was feeling sick); retinopathy status seems stable; recentblood work- up has revealed deteriorating renal function; he is following up with a marriage and family counselor for further management. He has upgraded to tandem t:slim X2 pump with control IQ, although surprisingly, without adequate training and use of basal IQ. Our pump education is getting in touch with him to sort the things out. No other changes were made to the plan of management. Will continue to monitor with Dexcom G6 CGM and follow-up in the clinic after three months. After visit summary given to patient. 1. Revised basal insulin rate for the Tandem t:slim X2 pump with control IQ: 12 AM 1.2, 2 AM 1.1, 7 AM 1.0, and 7 PM 1.2 units/h respectively. 2. Change in the meal-related bolus insulin settings: insulin to carb ratio of 1:12, correction factor 40, and target blood glucose of 110 mg/dL. Active insulin time: 5 hours. 3. Continue monitoring with Dexcom G6 CGM. 4. Share the T connect and Dexcom data with our clinic and send an eCare message for us to review, after 6 weeks. 5. No other change in the plan of management. 6. Follow-up after 3 months. Orders Placed This Encounter CONTINUOUS GLUCOSE MONITORING ANALYSIS I&R I spent 40 minutes on this patient's care today including pre- and post-time. Denise Sharma MD Clinical motion picture camera operator Division of Metabolism, Endocrinology and Nutrition [facility] documented in this encounter Plan of Treatment Not on filedocumented as of this encounter Procedures Procedure Name Priority Date/Time Associated Diagnosis Comme nts SC CONTINUOUS GLUCOSE Routine 05/07/2020 12:19 PM Type 1 diabe reji mellitus MONITORING ANALYSIS PDT with hypergl ycemia ([facility]) I&R Insulin pump in place documented in this encounter Visit Diagnoses Diagnosis Type 1 diabetes mellitus with hyperglyce nancy ([facility]) - Primary Type I (juvenile type) diabetes mellitus without mention of complication, not stated as uncontrolled Insulin pump in place Insulin pump status Long-term insulin use ([facility]) Encounter for long-term (current) use of insulin Dyslipidemia Other and unspecified hyperlipidemia Essential hypertension Unspecified essential hypertension Retinopathy due to unstable type 1 diabe reji mellitus (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) Type 1 diabetes mellitus with diabetic p olyneuropathy (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) Presence of gastric pacemaker documented in this encounter Additional Health Concerns Assessment Noted Time PHQ-9 Depression Total Score: 9 01/15/2020 2:00 PM PDT documented as of this encounter Care Teams Reel System Operator Relationship Specialty Start Date End Date Pcp, None PCP - General 07/26/19 06/02/20 Identifies patients without a PCP or unassigned documented as of this encounter
--- OUTSIDE RECORDS SUMMARY | 2022-07-24 16:34 | External Medical Summary | Encounter Summary ---
:1985 Author Organization [facility] Address [address] [place] [address] Care Team Providers Name Role Phone Quinten Prasad MD Primary Care Provider Reason for Visit Reason Onset Date Comments Panel Management 07/16/2020 Medicare Annual [facility] Visit Scheduling Encounter Details Date Type Department Care Team Description 07/16/2020 Telephone [facility] Primary Karla Blanco Panel Management Care Family Medicine PSS/PSR (Medicare Annual [facility] Visit [address] Health Navigator Scheduling) [place] [address] [phone] [place], [place] [address] (Wo rk) Social History Tobacco Use Types Packs/Day Years Used Date Smoking Tobacco: Former Cigarettes Quit : 06/03/2012 Smokeless Tobacco: Never Alcohol Use Standard Drinks/Week Comments Not Currently 0 (1 standard drink = 0.6 oz pure alcoho l) Sex Assigned at Date Recorded Male 08/18/2020 8:31 PM PST documented as of this encounter Miscellaneous Notes Telephone Encounter - Karla Blanco - 07/16/2020 1:40 PM PST AWV outreach started via eCare. When patient calls back, please schedule AWV in 30 minute slot with PCP. If it's patietns first AWV, it has to be done in person. documented in this encounter Plan of Treatment Not on filedocumented as of this encounter Visit Diagnoses Not on filedocumented in this encounter Additional Health Concerns Assessment Noted Time PHQ-9 Depression Total Score: 9 06/03/2020 11:45 AM PS T documented as of this encounter Care Teams Dye Reel Operator Helper Relationship Specialty Start Date End Date Quinten Prasad MD PCP - General Family Practice 06/03/20 04/07/21 [address] [place] [address] documented as of this encounter
--- OUTSIDE RECORDS SUMMARY | 2022-07-24 16:34 | External Medical Summary | Encounter Summary ---
:[address] [facility] Address [address] [place] [address] Care Team Providers Name Role Phone Quinten Prasad MD Primary Care Provider Reason for Referral Specialty Visit (Routine) - Closed Specialty Diagnoses / Procedures Referred By Contact Refer red To Contact Dental/Oral Med / Diagnoses Oral pain Quinten Prasad MD [facility] [address] [place] [address] [address] [facility] [place] [address] Phone: Fax: Referral ID Status Reason Start Date Expiration Date Visits V isits Requested Authorized [id number] Closed Specialty 06/24/2020 06/24/2021 99 99 Services Required Scheduling Instructions Referral to: [facility] (POS [id number]) [phone] -- Wet Plant Operator: This referral will not be processed unless faxed to [phone] ----Please be aware that while I, as you r health care provider, have identified this referral as medically indicated, I canno t guarantee your insurance plan will cover it. I recommend you contact your insuran ce carrier to make sure this is a covered service they will pay for. Reason for Visit Reason Onset Date Comments Referral 06/24/2020 Encounter Details Date Type Department Care Team Description 06/24/2020 Telephone Medicine Primary Care [place] Prasad MD Referral Family Medicine at [address] [place] [address] [address] [place] [address] [phone] Social History Tobacco Use Types Packs/Day Years Used Date Smoking Tobacco: Former Cigarettes Quit : 06/03/2012 Smokeless Tobacco: Never Alcohol Use Standard Drinks/Week Comments Not Currently 0 (1 standard drink = 0.6 oz pure alcoho l) Sex Assigned at Date Recorded Male 08/18/2020 8:31 PM PST documented as of this encounter Miscellaneous Notes Telephone Encounter - Teresita Ferrer - 06/24/2020 4:59 PM PST Reviewed 06/03/2020 OV Chart Notes; Did not see any notes regarding dental issues. Pended the referral, please complete and sign if approved. Thank you. Routing to PCP Telephone Encounter - Wilfrid Jenkins - 06/24/2020 4:45 PM PST RETURN CALL: Voicemail - Detailed Message SUBJECT: Referral Request/Questions REASON FOR REFERRAL: dental NAME OF CLINIC/SPECIALTY: advance dental PROVIDER: n/a PHONE: [phone] FAX: [phone] ADDITIONAL INFORMATION: patients jaqui is calling in to request this referral for patient, she stated that it was discussed about on jun 03. documented in this encounter Plan of Treatment Scheduled Referrals Name Type Priority Associated Diagnoses Order S chedule REFERRAL TO ORAL Referral Routine Oral pain Ordered: MED/DENTISTRY documented as of this encounter Visit Diagnoses Diagnosis Oral pain - Primary Other and unspecified diseases of the or al soft tissues documented in this encounter Additional Health Concerns Assessment Noted Time PHQ-9 Depression Total Score: 9 06/03/2020 11:45 AM PS T documented as of this encounter Care Teams Pick Up Relationship Specialty Start Date End Date Quinten Prasad MD PCP - General Family Practice 06/03/20 04/07/21 [address] [place] [address] documented as of this encounter
--- OUTSIDE RECORDS SUMMARY | 2022-07-24 16:34 | External Medical Summary | Encounter Summary ---
:1985 Author Organization [facility] Address [address] [place] [address] Care Team Providers Name Role Phone Quinten Prasad MD Primary Care Provider Reason for Visit Reason Comments Medication Management Encounter Details Date Type Department Care Team Description 10/23/2020 Telemedicine [facility] Primary Quinten Prasad MD Dx: Type 1 diabetes Care Family Medicine [address] [facility] [address] with at [facility] hyperglycemia (HCC) [address] [place], [place] [address] (Primary Dx) Place [phone] [place], [place] (Work) [address] [phone] Social History Tobacco Use Types Packs/Day Years Used Date Smoking Tobacco: Former Cigarettes Quit : 06/03/2012 Smokeless Tobacco: Never Alcohol Use Standard Drinks/Week Comments Not Currently 0 (1 standard drink = 0.6 oz pure alcoho l) Sex Assigned at Date Recorded Male 08/18/2020 8:31 PM PST documented as of this encounter Patient Instructions Patient InstructionsQuinten Prasad MD - 10/23/2020 1:30 PM PDT [email or web address] documented in this encounter Progress Notes Quinten Prasad MD - 10/23/2020 1:30 PM PDT Family Medicine Telemedicine Note Chief Complaint 34 year old M w/ DM1 p/w medication f/u. History of Present Illness The patient just moved to [place] in [place]. He will continue to see endo but is looking for a new local PCP. He recently from his and is currently staying with his family. Problem list and medications reviewed and updated today as documented in the electronic health record. Physical Exam Gen: AAOx3, in NAD, resting comfortably HEENT: NC/AT, EOMI Resp: no increased work of breathing Assessment/Plan 34 year old M p/w: 1. Type 1 diabetes mellitus with hyperglycemia (HCC) Will continue care with endo and GI in [place]. 2. Essential hypertension Refill. - carVEDilol 3.125 MG tablet; Take 1 tablet (3.125 mg) by mouth 2 times a day with meals. Dispense: 180 tablet; Refill: 3 - cloNIDine 0.1 MG/24HR patch; Place 1 patch on the skin every 7 days. apply 1 patch every 7 days Dispense: 12 patch; Refill: 3 3. Dyslipidemia Refill. - atorvastatin 40 MG tablet; Take 1 tablet (40 mg) by mouth every evening. Dispense: 90 tablet; Refill: 3 4. Mood disorder (HCC) Refill. - fluvoxaMINE 100 MG tablet; Take 1 tablet (100 mg) by mouth at bedtime. Dispense: 90 tablet; Refill: 3 Follow-up: PRN [facility] Telemedicine Encounter I conducted this encounter from my home via secure, live, [id number] video conference with the patient. Mauri was located at home. Prior to the interview, the risks and benefits of telemedicine were discussed with the patient and verbal consent was obtained. This visit was conducted via telemedicineto adhere with social distancing guidelines during the COVID-19 pandemic. Quinten Prasad MD Family Medicine [facility] documented in this encounter Plan of Treatment Not on filedocumented as of this encounter Visit Diagnoses Diagnosis Type 1 diabetes mellitus with hyperglyce nancy (HCC) - Primary Type I (juvenile type) diabetes mellitus without mention of complication, not stated as uncontrolled Essential hypertension Unspecified essential hypertension Dyslipidemia Other and unspecified hyperlipidemia Mood disorder (HCC) Unspecified episodic mood disorder documented in this encounter Additional Health Concerns Infection Onset Date Last Indicated Resolved Time R/O COVID-19 10/09/2020 10/09/2020 11/20/2020 7:56 PM PDT Assessment Noted Time PHQ-9 Depression Total Score: 9 06/03/2020 11:45 AM PS T documented as of this encounter Care Teams Housing Management Officer Relationship Specialty Start Date End Date Quinten Prasad MD PCP - General Family Practice 06/03/20 04/07/[address] [place] [address] documented as of this encounter
--- OUTSIDE RECORDS SUMMARY | 2022-07-24 16:35 | External Medical Summary | Encounter Summary ---
:1985 Author Organization [facility] Address [address] [place] [address] Care Team Providers Name Role Phone Pcp, None Primary Care Provider Unavailable Reason for Visit Reason Comments Refill Request Fluvoxamine, carvedilol Encounter Details Date Type Department Care Team Description 10/26/2019 Refill [facility] Primary Quinten Prasad MD Refill Request Care Family Medicine at [address] [facility] (Fluvoxamine, [place] [address] carvedilol) [address] [place] [address] [phone] Social History Tobacco Use Types Packs/Day Years Used Date Smoking Tobacco: Never Smokeless Tobacco: Never Alcohol Use Standard Drinks/Week Comments Not Currently 0 (1 standard drink = 0.6 oz pure alcoho l) Sex Assigned at Date Recorded Male 08/18/2020 8:31 PM PST documented as of this encounter Miscellaneous Notes Telephone Encounter - Yamila Woodard PharmD - 10/30/2019 4:44 PM PDT Encounter is still open on our end. Please respond. Telephone Encounter - Yamila Woodard PharmD - 10/26/2019 3:33 PM PDT The requested medication requires your authorization because it is outside of the [facility]'s protocols: Fluvoxamine, carvedilol - listed as a historical medications - patient recently established care via telemedicine visit on 10/11/2019 If this medication is denied please have your staff inform the patient and schedule an appointment if necessary. documented in this encounter Plan of Treatment Not on filedocumented as of this encounter Visit Diagnoses Diagnosis Mood disorder (HCC) - Primary Unspecified episodic mood disorder Essential hypertension Unspecified essential hypertension documented in this encounter Care Teams Fabric Lay Out Worker Relationship Specialty Start Date End Date Pcp, None PCP - General 07/26/19 06/02/20 Identifies patients without a PCP or unassigned documented as of this encounter
--- OUTSIDE RECORDS SUMMARY | 2022-07-24 16:35 | External Medical Summary | Encounter Summary ---
:1985 Author Organization [facility] Address [address] [place] [address] Care Team Providers Name Role Phone Pcp, None Primary Care Provider Unavailable Reason for Visit Reason Comments Diabetes Specialty Visit (Routine) - Closed Specialty Diagnoses / Procedures Referred By Referred To Contact Contact Endocrinology Med / Diagnoses Type 1 diabetes mellitus with diabetic polyneuropathy (HCC) Quinten Prasad MD [facility] Diabetes Diabetes Services [address] [facility] [address] [place] [address] [place], [place] Phone: [phone] Fax: Referral ID Status Reason Start Date Expiration Date Visits Requ ested Visits Authorized [id number] Closed 10/11/2019 10/10/2020 1 1 Encounter Details Date Type Department Care Team Description 11/21/2019 Telemedicine [facility] Denise Conti, Dx : Type 1 diabetes Gulshan Yang MD mellitus with [facility] Address Alert - Do hyperglycemia (HCC) [address] Not Mail (Primary Dx) [place] [address] Social History Tobacco Use Types Packs/Day Years Used Date Smoking Tobacco: Never Smokeless Tobacco: Never Alcohol Use Standard Drinks/Week Comments Not Currently 0 (1 standard drink = 0.6 oz pure alcoho l) Sex Assigned at Date Recorded Male 08/18/2020 8:31 PM PST documented as of this encounter Patient Instructions Patient InstructionsDenise Sharma MD - 11/21/2019 1:00 PM PDT 1. Continue the current pump settings (Tandem t:slim G4) with basal insulin infusion rates (lispro insulin) of 1.2 units/h from 7 AM to 2 AM and 0.7 units/h from 2 AM to 7 AM. 2. Continue with an insulin to carbohydrate ratio of 1:13 around the clock, with a correction factorof 45, and blood glucose target of 140 mg/dL from 12 AM to 7 AM and 120 mg/dL from 7 AM to midnight. 3. Share Dexcom G6 data with our clinic (I have asked our staff to send a new invite) and based uponthe 2-week data, I will decide if further fine-tuning of insulin dosing is required. 4. Please reach out to [facility] and request them to send across your past medical records to our clinic. 5. Based on external reports, I shall decide if additional blood work-up is required now. 6. Follow-up in the clinic after 2 months; in the meantime, you can discuss with your insurance ([employer]) and [employer] about updating your current pump to t:slim X2 with control IQ, and we will provide the necessary paperwork. Denise Sharma MD Clinical conveyancer Division of Metabolism, Endocrinology and Nutrition [facility] documented in this encounter Progress Notes Denise Sharma MD - 11/21/2019 1:00 PM PDT Dist[facility] Telemedicine Encounter: Diabetes Clinic Date of Service: 11/21/2019 I conducted this encounter from home office via secure, live, [id number] video conference with thepatient. Mauri Levine was located at home with yari meng who is an RN and she participated byadding to the medical history and discussing the issues. Prior to the interview, the risks and benefits of telemedicine were discussed with the patient and verbal consent was obtained. Chief Complaint/Reason for Telemedicine Visit: Mauri Levine is a 33 year old male with Type 1 Diabetes. A telemedicine visit is scheduled (in lieu of an in-person visit) due to the ongoing COVID-19 pandemic-related concerns and to reduce the risk of exposure. This is his initial evaluation at our clinic. HPI Mauri Levine was diagnosed with type [...] to midnight, for the meal-related bolus insulin. He is interested in updating to Tandem T:slim X2 with control IQ; however, he has had challenges with his insurance in getting an approval. He is monitoring his blood glucose currently with the Dexcom G6 continuous glucose monitoring system. His glycemic control is poor; his A1c at [facility] on 08/11/2019 was 10.4%. He is unable to retrieve Dexcom Clarity data and share with me or with our clinic; despite efforts over several minutes, I was not successful in obtaining any blood glucose monitoring data from him during this visit. He however, mentions that his blood glucose values have been mostly in the range of 200 to 300 mg/dL, pretty much all the time, and was unable to provide any additional information on his glycemic control. Since diagnosis, over the last 2 decades, [...] he has been following up with his professor of sociology. Few months ago, his eGFR had dropped to low 20s with creatinine going up to 3.36 (which his fiance attributed to the episode of ketoacidosis and dehydration), and more recent evaluation done at [facility] few weeks ago, reportedly showed eGFR in [...] although he has been advised by his door to door fundraising collector to be cautious in termsof dose escalation as he has a tendency for QT prolongation. He does think that since initiation of domperidone in April 2019 his ER visits and hospitalizations due to gastroparesis symptoms and resultant ketoacidosis have significantly reduced. He had history of hypertension in the past and was on ABBE inhibitor; currently his blood pressure reportedly is in the range of 90/60 and he has been off of all antihypertensive medications. He has dyslipidemia currently on atorvastatin 40 mg daily. He has no history of atherosclerotic cardiovascular disease such as coronary artery disease, cerebrovascular accident, or peripheral arterial disease; hehas no history of vascular intervention. He has no history of thyroid disease or celiac disease. His fiance mentions that he was quite nonadherent with respect to his overall diabetes management in the recent years; however, in the last few weeks he has been more compliant with his prescribed insulin dosing instructions and monitoring; this, they both believe that, has actually resulted in improved glycemic profile; this is further facilitated by improvement in his gastroparesis symptoms as well. However, as mentioned above, there are no objective data to assess his glycemic control at this time. Patient Active Problem List Diagnosis Date Noted [...] Sig Dispense Refill atorvastatin 40 MG tablet Take 40 mg by mouth every evening. carVEDilol 3.125 MG tablet take 1 tablet by mouth twice a day with meals 180 tablet 1 cloNIDine 0.1 MG/24HR patch apply 1 patch every 7 days fluvoxaMINE 50 MG tablet take 1 tablet by mouth at bedtime 90 tablet 1 gabapentin 300 MG capsule Take 600 mg by mouth 2 times a day. ketamine 50 MG/ML solution [place] 50 mg in the nostril 3 times a day as needed. LORazepam 0.5 MG tablet Take 0.5 mg by mouth 3 times a day as needed. melatonin 10 MG tablet Take by mouth at bedtime as needed. Multiple Vitamins-Minerals (MULTIVITAMIN ADULT OR) Take by mouth. NovoLOG 100 UNIT/ML injection Inject 55 Units under the skin daily. Use with insulin pump. 2 vial 11 Other Meds (See Sig/Instructions) Take 10 mg by mouth. promethazine 25 MG/ML solution Inject 12.5 mg intramuscularly every 6 hours as needed. tadalafil 10 MG tablet Take 5 mg by mouth daily. No current facility-administered medications for this visit. ROS: Except as noted in HPI, the remainder of complete review of systems is otherwise negative. PHYSICAL EXAMINATION: There is no height or weight on file to calculate BMI. Wt Readings from Last 3 Encounters: No data found for Wt BP Readings from Last 3 Encounters: No data found for BP GENERAL: Awake, alert and is in no apparent distress EYES: no exophthalmos, lag or stare RESPIRATORY: normal efforts of breathing, no tachypnea PSYCHIATRIC: mood and affect are normal OUTSIDE RECORDS: reviewed. Pertinent positives summarized in HPI LABS: Reviewed in Epic of the labs done in outside medical centers (Care Everywhere). 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 He has established chronic microvascular complications, including significant autonomic neuropathy, with quite disturbing symptoms of gastroparesis. He has had multiple episodes of diabetic ketoacidosis and severe hypoglycemia in the past. The frequency of ketoacidosis episodes has been coming down of late, with improvement in his gastroparesis manifestations. His glycemic control appears poor; part of it is linked to his lack of adherence to the prescribed regimen, and it could also be due to his status of his chronic complications and possibly some degree of depression. Given the paucity of blood glucose data at this visit, it was hard to make any meaningful changes to his ongoing diabetes regimen; I have asked him to continue thecurrent plan of management and have requested our director of medical education to send him an invite to link and share his Dexcom G6 data with our clinic; upon review of the data, I will recommend fine-tuning of his insulin regimen. He is also been asked to reach out to his providers at [facility] and request them to send across his old medical records to our clinic. I will see him in the clinic after 2 months, at which time would pursue the paperwork for updating to tandem pump with [employer]. An after visit summary was provided with the following advise: 1. Continue the current pump settings (Tandem t:slim G4) with basal insulin infusion rates (lispro insulin) of 1.2 units/h from 7 AM to 2 AM and 0.7 units/h from 2 AM to 7 AM. 2. Continue with an insulin to carbohydrate ratio of 1:13 around the clock, with a correction factorof 45, and blood glucose target of 140 mg/dL from 12 AM to 7 AM and 120 mg/dL from 7 AM to midnight. 3. Share Dexcom G6 data with our clinic (I have asked our staff to send a new invite) and based uponthe 2-week data, I will decide if further fine-tuning of insulin dosing is required. 4. Please reach out to [facility] and request them to send across your past medical records to our clinic. 5. Based on external reports, I shall decide if additional blood work-up is required now. 6. Follow-up in the clinic after 2 months; in the meantime, you can discuss with your insurance ([employer]) and [employer] about updating your current pump to t:slim X2 with control IQ, and we will provide the necessary paperwork. Denise Sharma MD Clinical conveyancer Division of Metabolism, Endocrinology and Nutrition [facility] documented in this encounter Plan of Treatment Not on filedocumented as of this encounter Visit Diagnoses Diagnosis Type 1 diabetes mellitus with hyperglyce nancy ([facility]) - Primary Type I (juvenile type) diabetes mellitus without mention of complication, not stated as uncontrolled Long-term insulin use ([facility]) Encounter for long-term (current) use of insulin Insulin pump in place Insulin pump status Essential hypertension Unspecified essential hypertension Dyslipidemia Other and unspecified hyperlipidemia CKD stage 3 due to type 1 diabetes israel ram ([facility]) Retinopathy due to unstable type 1 diabe reji mellitus (HCC) Type 1 diabetes mellitus with diabetic p olyneuropathy (HCC) Type I (juvenile type) diabetes mellitus with neurological manifestations, not stated as uncontrolled Diabetic gastroparesis associated with t ype 1 diabetes mellitus (HCC) 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 diabe reji mellitus (HCC) Type I (juvenile type) diabetes mellitus with other specified manifestations, not stated as uncontrolled documented in this encounter Care Teams Magneto Specialist Relationship Specialty Start Date End Date Pcp, None PCP - General 07/26/19 06/02/20 Identifies patients without a PCP or unassigned documented as of this encounter
--- OUTSIDE RECORDS SUMMARY | 2022-07-24 16:35 | External Medical Summary | Encounter Summary ---
:1985 Author Organization [facility] Address [address] [place] [address] Care Team Providers Name Role Phone Pcp, None Primary Care Provider Unavailable Reason for Visit Reason Onset Date Comments Appointment 10/07/2019 Encounter Details Date Type Department Care Team Description 10/07/2019 Telephone [facility] Primary Care [place] Prasad MD Appointment Family Medicine at [address] [place] [address] [address] [place] [address] [phone] Social History Tobacco Use Types Packs/Day Years Used Date Smoking Tobacco: Never Assessed Sex Assigned at Date Recorded Male 08/18/2020 8:31 PM PST documented as of this encounter Progress Notes Quinten Prasad MD - 10/07/2019 9:52 PM PDT Can we change this to telemedicine? If we cannot, can the visit be posted for several months? Thanks. documented in this encounter Miscellaneous Notes Telephone Encounter - Fay Bradshaw - 10/10/2019 4:14 PM PDT Patient will reschedule physical to a later date. Did need to keep a new appt with Dr. Prasad because he will be out of his insulin soon. Telehealth appointment scheduled for 10/10. Zip whip sent. Closing TE. documented in this encounter Plan of Treatment Not on filedocumented as of this encounter Visit Diagnoses Not on filedocumented in this encounter Care Teams Barge Worker Relationship Specialty Start Date End Date Pcp, None PCP - General 07/26/19 06/02/20 Identifies patients without a PCP or unassigned documented as of this encounter
--- OUTSIDE RECORDS SUMMARY | 2022-07-24 16:35 | External Medical Summary | Encounter Summary ---
:1985 Author Organization [facility] Address [address] [place] [address] Care Team Providers Name Role Phone Pcp, None Primary Care Provider Unavailable Reason for Referral Specialty Visit (Routine) - Closed Specialty Diagnoses / Procedures Referred By Referred To Contact Contact Endocrinology Med / Diagnoses Type 1 diabetes mellitus with diabetic polyneuropathy (HCC) Quinten Prasad MD [facility] Diabetes [facility] [address] [place] [address] [place], [place] Phone: [phone] Fax: Referral ID Status Reason Start Date Expiration Date Visits Requ ested Visits Authorized [id number] Closed 10/11/2019 10/10/2020 1 1 Scheduling Instructions Referral to: [facility] (at [facility]) (DEP [id number]) [phone] ----Please be aware that while I, as you r health care provider, have identified this referral as medically indicated, I canno t guarantee your insurance plan will cover it. I recommend you contact your insuran ce carrier to make sure this is a covered service they will pay for. [facility] Reason for Visit Reason Comments Establish Care Encounter Details Date Type Department Care Team Description 10/11/2019 Telemedicine [facility] Primary Quinten Prasad MD Dx: Type 1 diabetes Care Family Medicine [address] itus with diabetic at [facility] polyneuropathy (HCC) [address] [place], [place] [address] (Primary Dx) Place [phone] [place], [place] (Work) [phone] Social History Tobacco Use Types Packs/Day Years Used Date Smoking Tobacco: Never Smokeless Tobacco: Never Alcohol Use Standard Drinks/Week Comments Not Currently 0 (1 standard drink = 0.6 oz pure alcoho l) Sex Assigned at Date Recorded Male 08/18/2020 8:31 PM PST documented as of this encounter Progress Notes Quinten Prasad MD - 10/11/2019 11:14 AM PDT Family Medicine Telemedicine Note Chief Complaint 33 year old M w/ DM1 p/w establishing care. History of Present Illness The patient is here to establish care. He and his fiance, an RN, note a history of DM1 for 20 years with related CKD, gastroparesis, MD, neuropathy, and HTN. He was previously seen at but did not have an marine electrician, though had an endocrine pharmacist. He has an associate business analyst, powerplant operator, GI doc, and street flusher driver at . Problem list and medications reviewed and updated today as documented in the electronic health record. Review of Systems Constitutional: Negative. Endocrine: Negative. Physical Exam Gen: AAOx3, in NAD, resting comfortably HEENT: NC/AT, EOMI Resp: no increased work of breathing Assessment/Plan 33 year old M p/w: 1. Type 1 diabetes mellitus with diabetic polyneuropathy (HCC) Refill of insulin for pump. Needs marine electrician and referred. F/u after pandemic. - NovoLOG 100 UNIT/ML injection; Inject 55 Units under the skin daily. Use with insulin pump. Dispense: 2 vial; Refill: 11 - REFERRAL TO ENDOCRINOLOGY Follow-up: 3 months Distant Site Telemedicine Encounter I conducted this encounter from [facility] via secure, live, mied-so-zate video conference with the patient. Mauri was located at home. Prior to the interview, the risks and benefits of telemedicine were discussed with the patient and verbal consent was obtained. I spent a total time of 30 minutes nbos-rr-ikoe with the patient, of which more than 50% was spent counseling and coordinating care as outlined in this note, including reconciling complex medical history. Quinten Prasad MD Family Medicine [facility] documented in this encounter Plan of Treatment Scheduled Referrals Name Type Priority Associated Diagnoses Order S chedule REFERRAL TO Referral Routine Type 1 diabetes mellitus Ord ered: ENDOCRINOLOGY with diabetic 10/11/2019 polyneuropathy (HCC) documented as of this encounter Visit Diagnoses Diagnosis Type 1 diabetes mellitus with diabetic p olyneuropathy (HCC) - Primary Type I (juvenile type) diabetes mellitus with neurological manifestations, not stated as uncontrolled documented in this encounter Care Teams Film Reproducer Relationship Specialty Start Date End Date Pcp, None PCP - General 07/26/19 06/02/20 Identifies patients without a PCP or unassigned documented as of this encounter
--- OUTSIDE RECORDS SUMMARY | 2022-07-24 16:35 | External Medical Summary | Encounter Summary ---
:1985 Author Organization [facility] Address [address] [place] [address] Care Team Providers Name Role Phone Pcp, None Primary Care Provider Unavailable Reason for Visit Reason Onset Date Comments Other 11/13/2019 Communication prefer ences update needed: Encounter Details Date Type Department Care Team Description 11/13/2019 Telephone [facility] Denise Conti Ot her (Communication [facility] Diabetes MD preferences update [place] Address Alert - Do Not needed:) [address] [place] [address] Social History Tobacco Use Types Packs/Day Years Used Date Smoking Tobacco: Never Smokeless Tobacco: Never Alcohol Use Standard Drinks/Week Comments Not Currently 0 (1 standard drink = 0.6 oz pure alcoho l) Sex Assigned at Date Recorded Male 08/18/2020 8:31 PM PST documented as of this encounter Miscellaneous Notes Telephone Encounter - Nel Stanton - 11/13/2019 12:43 PM PDT Communication preferences update needed: LMV for pt's consent to receive Text Msg and update E-[facility] sign-up. 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
--- OUTSIDE RECORDS SUMMARY | 2022-07-24 16:37 | External Medical Summary | Clinical Summary ---
:[address] [facility] [place] [address] Care Team Providers Name Role Phone Flo Peña MD Primary Care Provider Allergies Active Allergy Reactions Severity Noted Date Comments Iodinated Contrast Media Unknown 01/03/2022 Dys tonic Per [facility] Metoclopramide Agitation/Anxiety Low 01/03/2022 Per [facility] Other reaction( s): Agitated Nsaids Unknown 01/03/2022 Per [facility] R Prochlorperazine Unknown, High "My whole b jacinto Agitation/Anxiety freaks out " Per [facility] Silver Rash Medium 11/29/2018 Silver Nitrate Rash Medium 11/29/2018 Other reactio n(s): dystonic Medications Medication Sig Dispensed Refills Start Date End Date Status cloNIDine (CATAPRES) Place 1 Patch onto 0 11/17/2021 Active 0.2 MG/24HR Patch the skin every week. Weekly tuesday ondansetron (ZOFRAN Take 4 mg by mouth 0 12/09/2021 Active ODT) 4 MG Tablet every 8 hours as Dispersible needed. NAUSEA AND VOMITING venlafaxine (EFFEXOR Take 225 mg by mouth 0 03/09/20 Active XR) 75 MG Capsule SR once daily. 24 HR mirtazapine (REMERON Take 15 mg by mouth 0 Active SOLTAB) 15 MG Tablet at bedtime. Dispersible fluoxetine (PROZAC) Take 20 mg by mouth 0 01/11/2022 Active 20 MG Caps once daily. carvedilol (COREG) Take 6.25 mg by 0 Active 6.25 MG Tab mouth twice daily. Insulin Infusion Inject 0-60 Units/day into t he skin administered continuously. Midnight basal: 1.23 units per hour, 2am is 1.1 units per hour; 7am is 1.0 units per hour and 7pm is 1.2 units per hour. Total daily basal is 25.96 Units/day. 0 Active Pump Device Correction is 40 with a target BG of 110. Carb ratio 1 unit for 12 grams of carb. sucralfate Take 1 g by mouth 0 A ctive (CARAFATE) 1 g Tab twice daily. omeprazole Take 20 mg by mouth 0 Active (PRILOSEC) 20 MG every morning before Capsule Delayed breakfast. Release promethazine Place 25 mg rectally 0 Active (PHENERGAN) 25 MG every 6 hours as Suppos needed for nausea/vomiting. Continuous Blood 1 Units every ten 0 Active Gluc Sensor (DEXCOM days. Used with G6 SENSOR) Misc other DEXCOM accessories. famotidine (PEPCID) Take 20 mg by mouth 0 Active 20 mg Tab once daily. granisetron (KYTRIL) Take 1 Tablet by 8 Tablet 0 03/24/2022 Active 1 MG Tab mouth every 24 hours as needed for breakthrough nausea/vomiting. Active Problems Problem Noted Date Sepsis 03/13/2022 Acute renal failure (ARF) 01/03/2022 Respiratory failure 01/03/2022 Metabolic alkalosis 01/03/2022 Stage 3a chronic kidney disease 01/03/2022 Hyperosmolar hyperglycemic state (HHS) 01/03/2022 Anemia 01/03/2022 Prolonged Q-T interval on ECG 01/03/2022 Non compliance w medication regimen 01/03/2022 Mitral valve prolapse 11/29/2018 Nonrheumatic aortic valve insufficiency 11/29/2018 Encounters Date Type Specialty Care Team Description 07/20/2022 Telephone Endocrinology Olivia Colon LVN/NAHOMY from Last 3 Months Family History Patient is adopted Medical History Relation Name Comments Hypertension Father Colon Cancer Maternal Grandfather Atrial fibrillation Mother Hypertension Mother Breast Cancer Sister Relation Name Status Comments Father Maternal Grandfather Malignant n eoplasm of colon reported 11/12/2010 Mother Sister Alive Social History Tobacco Use Types Packs/Day Years Used Date Smoking Tobacco: Former Cigarettes Quit : 02/12/2011 Smokeless Tobacco: Never Alcohol Use Standard Drinks/Week Comments Not Currently 0 (1 standard drink = 0.6 oz pure alcoho l) Sex Assigned at Date Recorded Not on file Last Filed Vital Signs Vital Sign Reading Time Taken Comments Blood Pressure 197/97 03/24/2022 9:00 AM PDT Pulse 92 03/24/2022 9:00 AM PDT Temperature 36.2 C (97.2 F) 03/24/2022 6:18 AM PDT Respiratory Rate 16 03/24/2022 9:00 AM PDT Oxygen Saturation 99% 03/24/2022 9:00 AM PDT Inhaled Oxygen Concentration - - Weight 71.4 kg (157 lb 6.5 oz) 03/22/2022 7:00 AM PDT Height 185.4 cm (6' 1") 03/14/2022 12:00 PM PDT Body Mass Index 20.77 03/14/2022 12:00 PM PDT Plan of Treatment Upcoming Encounters Date Type Specialty Care Team Description 07/26/2022 Office Visit Endocrinology Angela Negro MD [address] [address] [place] [phone] (Wo rk) Health Maintenance Due Date Last Done Comments IMM: HEPATITIS B (1 of 3 - 1986 3-dose series) SCRN: FOR DEPRESSION - ANNUAL 01/23/1987 SCRN: FOR HIV USPSTF ROUTINE 2001 (15-65 YEARS) [facility] SCRN: HIV-UNIVERSAL SCRN 2001 SCRN: ANNUAL HEALTH 2004 MAINTENANCE REVIEW SCRN: FOR DIABETIC NEUROPATHY 2004 SCRN: FOR DIABETIC RETINOPATHY 2004 SCRN: FOR HEPATITIS C ROUTINE 2004 (18-79 Years) SCRN: FOR MICROPROTEINURIA 2004 SCRN: FOR HYPERLIPIDEMIA (NEW 2006 DM DX) IMM: Pneumococcal Combined 02/24/2020 02/23/2019, 9 0-64 (2 - PCV) IMM: INFLUENZA (AGE > 6 03/18/2022 08/04/2021, 06/03/2020 MONTHS) (#1) SCRN: FOR DIABETIC GLYCEMIC 07/05/2022 01/03/2022 CONTROL( HGA1C) SCRN: FOR CKD/NEPHROPATHY 04/15/2023 04/15/2022, 04/15/2022 , 03/24/2022, Additional history exists IMM: DTAP/TDAP/TD (2 - Td or 06/03/2030 06/03/2020 Tdap) IMM: HEPATITIS A Aged Out No longer eligi ble based on patient 's age to complete this topic IMM: MENINGOCOCCAL ACWY Aged Out No longe r eligible based on patient 's age to complete this topic Insurance Payer Benefit Plan Subscriber ID Effective Phone Address Typ e / Group Dates MEDICARE MEDICARE A & [id number] 2022-Pres [phone] [address] MEDICARE [address] [place] [address] [place] [id number] 2020-Prese [phone] [address] [place] [address] [place] [address] Advance Directives Latest Code Status on File Code Status Date Activated Date Inactivated Comments Full Code 03/13/2022 11:55 PM Code Status History Code Status Date Activated Date Inactivated Comments Full Code 01/03/2022 1:38 PM 03/13/2022 11:55 PM 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
--- OUTSIDE RECORDS SUMMARY | 2022-07-24 16:37 | External Medical Summary | Encounter Summary ---
:1985 Author Organization [facility] [place] [address] Care Team Providers Name Role Phone Flo Peña MD Primary Care Provider Reason for Referral Consultation (Routine) - Closed Specialty Diagnoses / Procedures Referred By Contact Refer red To Contact Supervisor [employer] / Diagnoses Hyperosmolar hyperglycemic state (HHS) ([facility]) Stiven Salas Kh David Cda Diabetes Endocrinology Procedures REFERRAL TO DIABETES EDUCATION - DANIELLE DO & Endocrinology [address] [address] [place], [place] [phone] Phone: Fax: Referral ID Status Reason Start Date Expiration Date Visits Requ ested Visits Authorized [id number] Closed 03/24/2022 09/20/2022 3 3 adiology Services (Routine) - Closed Specialty Diagnoses / Procedures Referred By Contact Refer red To Contact Radiology Procedures Oskar Monae MD [place] [address] [place] [address] Referral ID Status Reason Start Date Expiration Date Visits Requ ested Visits Authorized [id number] Closed 03/22/2022 03/22/2023 1 1 adiology Services (Routine) - Closed Specialty Diagnoses / Procedures Referred By Contact Refer red To Contact Radiology Procedures Keri Salas MD ABDOMINAL, LIMITED [address] [facility] ([facility] [place] [address] Referral ID Status Reason Start Date Expiration Date Visits Requ ested Visits Authorized [id number] Closed 03/20/2022 03/20/2023 1 1 adiology Services (Routine) - Pending Review Specialty Diagnoses / Procedures Referred By Contact Refer red To Contact Radiology Procedures María Taylor, [place] [facility] GASTRIC EMPTYING STUDY MARCUS [address] [facility] [facility] WITH SMALL BOWEL TRANSIT [address] [place], [place] [phone] Phone: [phone] Referral ID Status Reason Start Date Expiration Date Visits V isits Requested Authorized [id number] Pending 03/18/2022 03/18/2023 5 5 Review Reason for Visit Authorization - Inpatient Specialty Diagnoses / Procedures Referred By Contact Refer red To Contact Diagnoses Sepsis (CMS/HCC) Sepsis, ALEXUS, Lactic acidosis Az Oakley DO [address] [place], [place] [id number] Referral ID Status Reason Start Date Expiration Date Visits Requ ested Visits Authorized [id number] 1 1 Encounter Details Date Type Department Care Team Description 03/13/2022 - Hospital Encounter [facility] [place] Az Oakley DO [address] [place] [id number] Sepsis (CMS/HCC) 03/24/20222002 Christopher Parmar DO [address] [place] [id number] [A41.9] [facility] Shoshana Yates MD [address] [facility] [place] [address] DAK[place] RAMSEY Magdelena, MD [address] [facility] [phone] Stiven Salas DO [address] [facility] [address] Social History Tobacco Use Types Packs/Day Years Used Date Smoking Tobacco: Former Cigarettes Quit : 02/12/2011 Smokeless Tobacco: Never Alcohol Use Standard Drinks/Week Comments Not Currently 0 (1 standard drink = 0.6 oz pure alcoho l) Sex Assigned at Date Recorded Not on file documented as of this encounter Last Filed [...] Mass Index 20.77 03/14/2022 12:00 PM PDT documented in this encounter Discharge Summaries Stiven Salas DO - 03/24/2022 11:03 AM PDT Images from the original note were not included. 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 Severe gastroparesis with history of gastric stimulator: Presenting with intractable nausea and vomiting: Acute metabolic encephalopathy secondary to above: Hypertension: Persistently elevated Major depressive disorder: Type 1 diabetes, brittle, insulin-dependent: Hypoglycemia: Resolved Severe metabolic alkalosis: Resolved Sepsis - ruled out after further in-hospital observation HOSPITAL COURSE 36-year-old male with major depressive disorder, historically uncontrolled diabetes mellitus type 1 complicated by gastroparesis that is post gastric stimulator, nephropathy who was hospitalized for the second time in 2 months for acute renal failure after exacerbations of gastroparesis led to intractable nausea vomiting and significant prerenal injury with ATN. Upon admission for both of these episodes the patient had significant metabolic encephalopathy. Patient is improving at this time, electrolytes as well as mental status better, attempting to reintroduce small frequent meals. Previously beenliving in a trailer on his parents property and then moved into their house when he was still havingdifficulty with managing his care, but it sounds like this is no longer an option and therefore discharge planning has been engaged to attempt and help him find other living arrangements. Patient is not interested in going to facility, though his mother reports that he is not able to come back with the m as she feels incapable of helping to care for him any longer. He does have a long history of noncompliance. Nephrology consulted for acute renal failure and electrolyte disturbances. Patient appears to be doing well as of 03/23/2022, appetite is good, renal function improving. Initiala discussion regarding possibility of usp versus intermediate facility (not excepted to the latter) but patient states that he does wish to return home and his mother is accepting of this decision. Recommend additional 24 to 48 hours to monitor renal function and did contact a clinical unit educator for placement of insulin pump (which patient has had in the past) on 03/23/22. Patient was deemed stable suited for discharge home on 03/24/2022. Personally discussed with plastics production machine operator, Dr. Oskar Monae. Glucose level stabilized with insulin pump placement. Patient remains labile from a blood pressure standpoint secondary to autonomic insufficiency and is appropriate to large swings in blood pressure chronically. Patient is prescribed low quantity of Kytril at discharge for nausea and vomiting, to be assessed by patient's outpatient providers and patient is aware not to combine with other antiemetics due to possibility of prolonging QT interval. Procardia XL prescribed at discharge and tolerating well inpatient, continue Coreg 6.25 mg twice daily as well as Catapres 0.2 mg per24- hour patch weekly. Patient is aware that he is to take all medications as prescribed, follow-up promptly with his PCP/other providers outpatient and seek medical attention should he experience any concerning symptoms. Patient had opportunity addressed all questions and concerns prior to discharge. DISCHARGE INSTRUCTIONS Discharge Instructions As per above and the patient is advised to take all medications as prescribed and follow-up promptlywith his PCP. Discharge Medications Medication List START taking these medications granisetron 1 MG Tabs Commonly known as: Kytril Take 1 Tablet by mouth every 24 hours as needed for breakthrough nausea/vomiting. NIFEdipine 30 MG Tb24 Commonly known as: Procardia XL Take 1 Tablet by mouth once daily for 60 days. CHANGE how you take these medications carvedilol 6.25 MG Tabs Commonly known as: Coreg What changed: Another medication with the same name was removed. Continue taking this medication, and follow the directions you see here. CONTINUE taking these medications cloNIDine 0.2 MG/24HR Ptwk Commonly known as: Catapres Dexcom G6 Sensor Misc famotidine 20 mg Tabs Commonly known as: PEPCID fluoxetine 20 MG Caps Commonly known as: PROzac Insulin Infusion Pump Nany mirtazapine 15 MG Tbdp Commonly known as: Remeron SolTab omeprazole 20 MG Cpdr Commonly known as: PriLOSEC ondansetron 4 MG Tbdp Commonly known as: Zofran ODT promethazine 25 MG Supp Commonly known as: Phenergan sucralfate 1 g Tabs Commonly known as: Carafate venlafaxine 75 MG Cp24 Commonly known as: Effexor XR STOP taking these medications lisinopril 10 MG Tabs Where to Get Your Medications These medications were sent to [id number] [place] [address] [place] [address], [place] [phone] granisetron 1 MG Tabs NIFEdipine 30 MG Tb24 Discharge Disposition Home Discharge Follow-Up The patient should follow up with PCP Flo Peña MD [address] [facility] [phone] Follow up in 3 day(s) Please call and schedule a follow up appointment with Dr. Peña within 1 week. Khari Mills MD [address] [facility] [address] Follow up in 3 day(s) Please call and schedule a follow up appointment wiht Dr. Mills within 3 days. of discharge. Consults O CONSULT/ASSESSMENT TO NUTRITION SVCS O IP CONSULT AND TREAT O CONSULT TO ENTERTAINMENT MANAGER Labs, Procedures, and Studies Important Lab findings: As per EMR Procedures: Insulin pump placement Important Radiology Results: As per EMR Pending Labs/Imaging/Studies: None Code Status at Discharge Full code Physical Exam at Discharge Condition of Patient on Discharge: Stable BP 197/97 | Pulse 92 | Temp (Src) 97.2 (Temporal) | Resp 16 | Ht 6' 1" (1.854 m) | Wt 157 lb 6.5 oz (71.4 kg) | SaO2 99% PHYSICAL EXAM: General: Chronically ill-appearing young gentleman sitting in bed in no apparent distress CV: RRR, no M/R/G, pulses in all extremities and no significant lower extremity edema Pulm: Lungs clear to auscultation bilaterally without increased work of breathing ABD: Soft, nontender, nondistended, positive bowel sounds MSK: No deformity Skin: No appreciable skin lesion or rash Neuro: ANO x3, CN-12 grossly intact, no focal deficit appreciated Total time spent on discharge 50 mins Stiven Salas DO 6:46 PM 03/24/2022 documented in this encounter Discharge Instructions Discharge InstructionsStiven Salas DO - 03/24/2022 8:18 AM PDT Please follow-up promptly with your PCP as well as plastics production machine operator. Also recommend following up with your gastroenterology group in [facility] regarding a gastric stimulation device. Do not take anti-nausea medications concomitantly and use lowest effective dosing where possible as these medications can lead to induced cardiac abnormalities. Please take all medications as prescribed and seek follow-up appointments promptly. Immediately seekmedical attention for any concerning symptoms. AttachmentsThe following attachments cannot be sent through Care Everywhere. Hyperglycemia (Ecuadorean)Granisetron tablets (Ecuadorean)Hypertension Adult Nzxq-zw-Dxsr (Ecuadorean)documented in this encounter Medications at Time of Discharge Medication Sig Dispensed Refills Start Date End Date granisetron (KYTRIL) 1 Take 1 Tablet by mouth 8 Tablet 0 0 03/24/2022 MG Tab every 24 hours as needed for breakthrough nausea/vomiting. carvedilol (COREG) 6.25 Take 6.25 mg by mouth 0 MG Tab twice daily. Continuous Blood Gluc 1 Units every ten 0 Sensor (DEXCOM G6 days. Used with other SENSOR) [facility] DEXCOM accessories. famotidine (PEPCID) 20 Take 20 mg by mouth 0 mg Tab once daily. Insulin Infusion Pump Inject 0-60 Units/day into t he skin administered continuously. Midnight basal: 1.23 units per hour, 2am is 1.1 units per hour; 7am is 1.0 units per hour and 7pm is 1.2 units per hour. Total daily basal is 25.96 Units/day. 0 Device Correction is 40 with a target BG of 110. Carb ratio 1 unit for 12 grams of carb. omeprazole (PRILOSEC) Take 20 mg by mouth 0 20 MG Capsule Delayed every morning before Release breakfast. promethazine Place 25 mg rectally 0 (PHENERGAN) 25 MG every 6 hours as Suppos needed for nausea/vomiting. sucralfate (CARAFATE) 1 Take 1 g by mouth 0 g Tab twice daily. fluoxetine (PROZAC) 20 Take 20 mg by mouth 0 12/17 MG Caps once daily. mirtazapine (REMERON Take 15 mg by mouth at 0 SOLTAB) 15 MG Tablet bedtime. Dispersible venlafaxine (EFFEXOR Take 225 mg by mouth 0 03/09 XR) 75 MG Capsule SR 24 once daily. HR cloNIDine (CATAPRES) Place 1 Patch onto the 0 09/2021 0.2 MG/24HR Patch skin every week. Weekly tuesday ondansetron (ZOFRAN Take 4 mg by mouth 0 12/10/19 22 ODT) 4 MG Tablet every 8 hours as Dispersible needed. NAUSEA AND VOMITING NIFEdipine (PROCARDIA Take 1 Tablet by mouth 30 Tablet 1 05/23/2022 XL) 30 MG Tablet SR 24 once daily for 60 HR days. documented as of this encounter Progress Notes Oskar Monae MD - 03/24/2022 8:45 AM PDT Images from the original note were not included. Nephrology Progress Note CC: 36 year old male is seen for alexus 03/24/2022 Subjective Blood pressure above goal this morning. Creatinine continues to improve. Patient states that he is hesitant to increase his antihypertensive agents further secondary to hypotension. No headache, visionchange, nausea or vomiting. He feels great and is ready for discharge. Plans on checking labs again this week as well as following up with outpatient plastics production machine operator, checking blood pressure. bp decreasedto 187 systolic after taking meds this morning. 10 out of 14 reviewed, all others negative except as above OBJECTIVE: Current Facility-Administered Medications Medication granisetron (Kytril) tablet 1 mg insulin pump parameter 1 Each pantoprazole (Protonix) tablet EC 40 mg lorazepam (Ativan) tablet 0.5 mg fluoxetine (PROzac) tablet 20 mg promethazine (Phenergan) 6.25 mg in 0.9 % NaCl (NS) 50 mL IV piggyback Or promethazine (Phenergan) 12.5 mg in 0.9 % NaCl (NS) 50 mL IV piggyback promethazine (PHENERGAN) tablet 12.5 mg NIFEdipine (Procardia XL) tablet SR 24 hr 30 mg famotidine (PEPCID) tablet 20 mg heparin 5000 units/mL inj 5,000 Units melatonin tablet 6 mg carvedilol (Coreg) tablet 6.25 mg mirtazapine (Remeron SolTab) tablet dispersible 15 mg venlafaxine (Effexor XR) capsule SR 24 hr 225 mg dextrose 50 % IV solution 50 mL ondansetron (Zofran) 2 mg/mL inj 4 mg VITALS: Temp: [97.2 F (36.2 C)-98.1 F (36.7 C)] 97.2 F (36.2 C) Pulse: [79-96] 93 Resp: [16-18] 18 BP: (156-211)/(89-104) 211/104 Temp (24hrs), Av.7 F (36.5 C), Min:97.2 F (36.2 C), Max:98.1 F (36.7 C) No intake/output data recorded. Admit Weight: 03/13/2022 : Weight: 156 lb 12 oz (71.1 kg) Today's weight: Weight: 157 lb 6.5 oz (71.4 kg) PHYSICAL EXAM General: No acute distress, pleasant HEENT: Normocephalic atraumatic, extraocular movements intact, sclerae anicteric, oropharynx clear, mucous membranes moist Cardiovascular: No JVD, regular without rubs or gallops Pulmonary: Clear to auscultation bilaterally, no wheeze, rhonchi, rales or accessory muscle use Abdomen: Positive bowel sounds soft, nontender, nondistended no rebound, guarding, masses Extremities: No cyanosis clubbing or edema Neuro: No myoclonus, follows commands Psychiatric: Normal affect, alert and oriented x3 CBC Recent Labs 03/24/22 0614 03/23/22 0524 03/22/22 0524 WBC 6.88 5.74 6.94 HGB 10.8* 9.6* 9.9* HCT 33.1* 28.6* 29.5* PLT 277 243 246 Renal Panel Recent Labs 03/24/22 0614 03/23/22 0524 03/22/22 0524 NA 138 134* 137 K 4.3 4.8 4.2 CL 99 100 101 CO2 25 25 24 AGAP 14 9 12 CREA 3.61* 3.93* 4.24* BUN 45* 41* 34* GLU 87 246* 101* CA 9.6 9.1 9.0 PHOSPHORUS 4.6 4.5 4.3 ALB 4.4 3.6 3.7 Magnesium No results for input(s): MG in the last 72 hours. Recent Labs RADIOLOGY: US RETROPERITONEAL Final Result IMPRESSION: 1. Negative ultrasound of the kidneys and bladder. ABDOMINAL, LIMITED (SPECIFY AREA) Final Result IMPRESSION: 1. Cholelithiasis without evidence of acute cholecystitis. 2. Small echogenic 1.1 cm lesion in the right liver is likely benign in the absence of known chronic liver disease or primary malignancy. Could consider assessment with MRI if there is a primary malignancy or known chronic liver disease. GASTRIC EMPTYING STUDY WITH SMALL BOWEL TRANSIT Final Result IMPRESSION: 1. Gastric emptying study within normal limits. *Gastric emptying values based on consensus recommendations for gastric emptying scintigraphy: A joint report of the [place] neurogastroenterology and motility society and the Society nuclear medicine. http://www.snm.org/docs/WKI_Minfyscxr_Qvxvrwkhzb_[email or web address].pdf Assessment & Plan 36-year-old male with type 1 diabetes presents with diabetic gastroparesis and multiple electrolyte abnormalities due to nausea vomiting and poor p.o. intake, acute kidney injury on chronic kidney disease which is secondary to diabetic nephropathy. 1)Diabetic gastroparesis Normal gastric emptying study, evidence of cholelithiasis, no cholecystitis. Status post GI evaluation, with recommendations for. outpatient follow-up in [place], [facility]. On granisetron 2) ALEXUS Most likely secondary to prerenal/ hypovolemia with some component of ATN in the setting of advancedckd.Nonoliguric, indices improved with LR. Patient aware of the importance of close outpatient lab follow-up and he has standing orders for IV fluid that he can obtain regularly or as frequently asneeded but he and his mom will take advantage of. Aware of the importance of follow-up with nephrology 3) CKD,stage III-IV Diabetic nephropathy suspected, mother is aware of high risk to dialysis progression Baseline serum creatinine around 1.7-2.0 Follows with in [place] 4) Hypertension, primary Blood pressures improved overall, but quite labile, above goal this morning, assess response to medications and titrate nifedipine if still above goal, though patient does not want to titrate at this time, continue current management, desire to avoid hypotension at this time, no prn antihypertensives u nless he is not able to keep his medicines down Continue carvedilol 6.25 mg twice daily Continue nifedipine ER 30 mg daily Hold lisinopril 5) Anemia of CKD, near goal S/p Epo, 10,000 units subcutaneous x 1 on 03/17/2022. Repeat dose 03/23/2022. Improved and within goal Patient planning on discharging today. Discussed with Dr. Salas, patient aware to obtain labs and follow-up with nephrology this week as well as to obtain blood pressure check. Oskar Monae MD, FASN Irma Ng RD - 03/23/2022 4:58 PM PDT Diabetes Education follow up note. Pt utilizing insulin pump therapy. He wears an X2 insulin pump and Dexcom G6 sensor for sensor augmented insulin pump therapy, called control [employer] software. Pt had a BGof 44 this afternoon, despite 20% reduction in basal rates. I had pt turn on "exercise mode" in his insulin pump. This has a higher BG target and more conservative correction algorithm. CDE available as needed. Irma Ng RD CDE Stiven Salas DO - 03/23/2022 3:26 PM PDT Images from the original note were not included. [facility] PROGRESS NOTE Patient Name: Mauri Levine : 1985 Admit Date: 03/13/2022 Attending Physician: Stiven Salas DO PCP: Flo Peña MD Date of Service: 03/23/2022 Hospital Day: 11 HOSPITAL COURSE 36-year-old male with major depressive disorder, historically uncontrolled diabetes mellitus type 1 complicated by gastroparesis that is post gastric stimulator, nephropathy who was hospitalized for the second time in 2 months for acute renal failure after exacerbations of gastroparesis led to intractable nausea vomiting and significant prerenal injury with ATN. Upon admission for both of these episodes the patient had significant metabolic encephalopathy. Patient is improving at this time, electrolytes as well as mental status better, attempting to reintroduce small frequent meals. Previously beenliving in a trailer on his parents property and then moved into their house when he was still havingdifficulty with managing his care, but it sounds like this is no longer an option and therefore discharge planning has been engaged to attempt and help him find other living arrangements. Patient is not interested in going to facility, though his mother reports that he is not able to come back with the m as she feels incapable of helping to care for him any longer. He does have a long history of noncompliance. Nephrology consulted for acute renal failure and electrolyte disturbances. Patient appears to be doing well as of 03/23/2022, appetite is good, renal function improving. Initiala discussion regarding possibility of usp versus intermediate facility (not excepted to the latter) but patient states that he does wish to return home and his mother is accepting of this decision. Recommend additional 24 to 48 hours to monitor renal function and did contact a clinical unit educator for placement of insulin pump (which patient has had in the past) on 03/23/22. 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 Currently no indication for dialysis initiation. -Worsening due to recurrent emesis with minimal oral intake. Improved with IV fluids given, but still with minimal improvement. -Continue to monitor. #Severe gastroparesis with history of gastric stimulator: Presenting with intractable nausea and vomiting: -Encourage small frequent meals. -Consulted accounts payable analyst for further education and assistance with meals -Due to persistent symptoms, GI consulted for consideration of GJ tube--gastric emptying study complete. Recommendations by GI for close follow-up with outpatient manager technical services/GI stim placement physician. -Continue home medications, apparently intolerant of metoclopramide -Granisetron started by GI 03/20. -GI recommending he follow up with his GI group in [place] to discuss G-J tube further. -RUQ US done for recurrent nausea and vomiting with e/o cholelithiasis, but no obstructing stones. -Granisetron started by GI, which seems to be an official. #Acute metabolic encephalopathy secondary to above: -Resolved -His mother is concerned about his poor judgment, but also notes she wants to maintain his independence as much as possible. #Hypertension: Persistently elevated -Treatment at the discretion of nephrology, continued -Continue to monitor closely #Major depressive disorder: -EKG repeated 03/19 for QT prolongation noted earlier in hospital stay--QTC 460 currently -Continue Mirtazapine, Effexor, re-started Fluoxetine -At patient request, low-dose PRN ativan ordered, but explained this will not be continued at discharge. #Type 1 diabetes, brittle, insulin-dependent: -clinical unit educator consulted. -Continue to monitor closely -Restarted Lantus at decreased dose of 20 units--decreased further to 15 units due to hypoglycemia despite PO intake. -Increase intensity of sliding scale insulin, but will need to decrease now Lantus being started in the morning. -Patient noted to have worsening hyperglycemia and increasing anion gap 03/19. Bolused with 2 L of fluid and more intensive insulin therapy resulted in normalization of this. -Insulin pump placed by visual educator on #Hypoglycemia: Resolved #Severe metabolic alkalosis: Resolved Controlled carb diet Full code Heparin Dispo: Continuing to look for alternative discharge plans. Will need further outpatient management for chronic gastroparesis symptoms as patient has had 19 hospitalizations since July of this year for this issue--recommend he follow up in [place] with group who placed gastric pacemaker. SUBJECTIVE CHIEF COMPLAINT: ALEXUS OVERNIGHT EVENTS: Interim events noted. Pertinent diagnostics, imaging, documentation reviewed. On arrival, patient awake and alert and indulging in rather a large meal from "[employer]". Timeof assessment, he denies any complaint. Does states he feels fine. He is eager to discharge home andstates that he plans on researching a usp options nearby after return home, states his motheris amenable to potential discharge. Advised him that need to monitor renal function a bit further, discussed with plastics production machine operator. Has had insulin pump placed by clinical unit educator today, 03/23/2022, need toensure functioning adequately. Discontinued every morning Lantus at 15 units today, 03/23/22. Overall,he denies nausea and vomiting. No headache. Denies kathie chest pain or shortness of breath. ROS: 10 point ROS otherwise negative unless documented above OBJECTIVE PHYSICAL EXAM: BP 156/98 | Pulse 79 | Temp (Src) 97.7 (Temporal) | Resp 16 | Ht 6' 1" (1.854 m) | Wt 157 lb 6.5 oz (71.4 kg) | SaO2 100% General: Chronically ill-appearing young gentleman sitting in bed in no apparent distress CV: RRR, no M/R/G, pulses in all extremities and no significant lower extremity edema Pulm: Lungs clear to auscultation bilaterally without increased work of breathing ABD: Soft, nontender, nondistended, positive bowel sounds MSK: No deformity Skin: No appreciable skin lesion or rash Neuro: ANO x3, CN-12 grossly intact, no focal deficit appreciated SCHEDULED Meds: I have personally reviewed the current medication list. [START ON 03/24/2022] pantoprazole, 40 mg, daily fluoxetine, 20 mg, daily NIFEdipine, 30 mg, daily famotidine, 20 mg, q2 days heparin, 5,000 Units, q12h carvedilol, 6.25 mg, bid mirtazapine, 15 mg, bedtime venlafaxine, 225 mg, daily IVF/IV Meds: insulin pump parameter PRN Meds: lorazepam, 0.5 mg, q8h PRN promethazine IV piggyback, 6.25 mg, q6h PRN Or promethazine IV piggyback, 12.5 mg, q6h PRN promethazine, 12.5 mg, q6h PRN melatonin, 6 mg, bedtime PRN dextrose, 50 mL, PRN ondansetron (Zofran) 2 mg/mL inj 4 mg, 4 mg, q6h PRN LABS: Labs in the last 24 hours POC Glucose Collection Time: 03/22/22 8:01 PM Result Value Ref Range Glucose (POC) 267 (H) 65 - 99 mg/dL Renal Profile Collection Time: 03/23/22 5:24 AM Result Value Ref Range Sodium 134 (L) 136 - 145 mmol/L Potassium 4.8 3.5 - 5.0 mmol/L Chloride 100 99 - 109 mmol/L CO2 25 23 - 33 mmol/L Anion Gap 9 5 - 16 ratio Creatinine 3.93 (H) 0.50 - 1.30 mg/dL BUN 41 (H) 8 - 25 mg/dL Glucose 246 (H) 65 - 99 mg/dL Calcium 9.1 8.5 - 10.2 mg/dL Phosphorus 4.5 2.3 - 4.8 mg/dL Albumin 3.6 3.5 - 5.0 g/dL Estimated Glomerular Filtration Rate (eGFR) 19 (L) >=60 mL/min/1.73 m2 CBC w/Auto Differential Collection Time: 03/23/22 5:24 AM Result Value Ref Range WBC 5.74 4.00 - 11.00 x10E3/uL RBC 3.43 (L) 4.30 - 5.70 x10E6/uL Hemoglobin 9.6 (L) 13.7 - 16.7 g/dL Hematocrit 28.6 (L) 40.0 - 50.0 % MCV 83.4 80.0 - 100.0 fL MCH 28.0 27.0 - 34.0 pg MCHC 33.6 31.5 - 35.7 g/dL RDW 15.9 (H) 11.0 - 15.0 % Platelet Count 243 150 - 400 x10E3/uL MPV 9.9 9.4 - 12.4 fL Neutrophils %, Automated 43.3 40.0 - 80.0 % Immature Granulocytes %, Automated 0.9 0.0 - 1.0 % Lymphocytes %, Automated 39.4 15.0 - 45.0 % Monocytes %, Automated 11.3 0.0 - 12.0 % Eosinophils %, Automated 4.2 0.0 - 7.0 % Basophils %, Automated 0.9 0.0 - 2.0 % Neutrophils Abs, Automated 2.49 2.00 - 7.30 x10E3/uL Immature Granulocyte Abs, Automated 0.05 0.00 - 0.05 x10E3/uL Lymphocytes Abs, Automated 2.26 1.00 - 3.40 x10E3/uL Monocytes Abs, Automated 0.65 0.00 - 0.80 x10E3/uL Eosinophils Abs, Automated 0.24 0.00 - 0.50 x10E3/uL Basophils Abs, Automated 0.05 0.00 - 0.10 x10E3/uL nRBC %, Automated 0.0 0.0 - 1.0 /100 WBC nRBC Abs, Automated 0.00 0.00 - 0.01 x10E3/uL POC Glucose Collection Time: 03/23/22 8:17 AM Result Value Ref Range Glucose (POC) 339 (H) 65 - 99 mg/dL POC Glucose Collection Time: 03/23/22 11:02 AM Result Value Ref Range Glucose (POC) 315 (H) 65 - 99 mg/dL POC Glucose Collection Time: 03/23/22 12:56 PM Result Value Ref Range Glucose (POC) 126 (H) 65 - 99 mg/dL POC Glucose Collection Time: 03/23/22 2:58 PM Result Value Ref Range Glucose (POC) 44 (L) 65 - 99 mg/dL RADIOLOGY: I have personally reviewed today's imaging US RETROPERITONEAL Final Result IMPRESSION: 1. Negative ultrasound of the kidneys and bladder. ABDOMINAL, LIMITED (SPECIFY AREA) Final Result IMPRESSION: 1. Cholelithiasis without evidence of acute cholecystitis. 2. Small echogenic 1.1 cm lesion in the right liver is likely benign in the absence of known chronic liver disease or primary malignancy. Could consider assessment with MRI if there is a primary malignancy or known chronic liver disease. GASTRIC EMPTYING STUDY WITH SMALL BOWEL TRANSIT Final Result IMPRESSION: 1. Gastric emptying study within normal limits. *Gastric emptying values based on consensus recommendations for gastric emptying scintigraphy: A joint report of the [place] neurogastroenterology and motility society and the Society nuclear medicine. http://www.snm.org/[email or web address] Additional Diagnostic Studies: Recent Results (from the past 168 hour(s)) EKG Collection Time: 03/19/22 7:17 PM Result Value Ref Range HEART RATE 98 bpm RR Interval 612 ms Atrial Rate 98 ms P-R Interval 165 ms P Duration 120 ms P Horizontal [place] 31 deg P Front [place] 63 deg Q Onset 503 ms QRSD Interval 84 ms QT Interval 360 ms QTcB 460 ms QTcF 424 ms QRS Horizontal [place] -33 deg QRS [place] 74 deg I-40 Horizontal [place] 95 deg I-40 Front [place] -30 deg T-40 Horizontal [place] -38 deg T-40 Front [place] 78 deg T Horizontal [place] 95 deg T Wave [place] 93 deg S-T Horizontal [place] 122 deg S-T Front [place] 116 deg Narrative - ABNORMAL ECG - Sinus rhythm Consider left ventricular hypertrophy Nonspecific T abnormalities, lateral leads Stiven Salas DO 3:32 PM 03/23/[address] - 03/23/2022 9:50 AM PDT Diabetes Education: Pt able to start pump and dexcom without difficulties. Added a second profile inpump with lower basal rates. Pt has not seen his endo in 1 year. 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 Encouraged follow up [place] with endo. Left instructions for connecting phone to t:connect [facility] so endo can see his pump reports remotely. Discussed new software available to him and provided instructions. Discussed troubleshooting hyperglycemia while on a pump (ketone testing, change out infusionsets, not running out of insulin, inspecting cannula/tubing, etc.) Reminded to change infusion sets every 2-3 days. Pt is long time pump user. New basal rats: MN 1.0 unit per hour and 2am 0.9 units per hour and 7pm 1.0 units per hour. New daily basad rate is 22.3 units per day. Pt knows how to switch to previous insulin pump settings (this profile was called Jon). Provided screen protector and battery cap replacement today. Pt will bolus for food and correction thorough his pump. RN will still preform POC BG checks (pt does have a dexcom but fingerstick is necessary per protocol. Reviewed case with RN and phramD. CDE available as needed. Irma Ng RD CDE Oskar Monae MD - 03/23/2022 7:02 AM PDT Images from the original note were not included. Nephrology Progress Note CC: 36 year old male is seen for alexus 03/23/2022 Subjective Blood pressure improved this morning. Creatinine improved with IV fluid yesterday. Continues to feelgreat, no emesis. Good appetite, no shortness of breath or edema. 10 out of 14 reviewed, all others negative except as above OBJECTIVE: Current Facility-Administered Medications Medication lorazepam (Ativan) tablet 0.5 mg insulin glargine (Lantus) 100 units/mL inj 15 Units fluoxetine (PROzac) tablet 20 mg insulin lispro (HUMALOG) 100 units/mL single dose 0-5 Units pantoprazole (Protonix) inj 40 mg promethazine (Phenergan) 6.25 mg in 0.9 % NaCl (NS) 50 mL IV piggyback Or promethazine (Phenergan) 12.5 mg in 0.9 % NaCl (NS) 50 mL IV piggyback promethazine (PHENERGAN) tablet 12.5 mg NIFEdipine (Procardia XL) tablet SR 24 hr 30 mg famotidine (PEPCID) tablet 20 mg heparin 5000 units/mL inj 5,000 Units melatonin tablet 6 mg carvedilol (Coreg) tablet 6.25 mg mirtazapine (Remeron SolTab) tablet dispersible 15 mg venlafaxine (Effexor XR) capsule SR 24 hr 225 mg dextrose 50 % IV solution 50 mL ondansetron (Zofran) 2 mg/mL inj 4 mg VITALS: Temp: [97.5 F (36.4 C)-97.9 F (36.6 C)] 97.7 F (36.5 C) Pulse: [77-92] 87 Resp: [16-18] 18 BP: (121-160)/(66-94) 121/76 Temp (24hrs), Av.7 F (36.5 C), Min:97.5 F (36.4 C), Max:97.9 F (36.6 C) In: 2020 [P.O.:600; I.V.:1421] Out: - Admit Weight: 03/13/2022 : Weight: 156 lb 12 oz (71.1 kg) Today's weight: Weight: 157 lb 6.5 oz (71.4 kg) PHYSICAL EXAM General: No acute distress, pleasant HEENT: Normocephalic atraumatic, extraocular movements intact, sclerae anicteric, oropharynx clear, mucous membranes moist Cardiovascular: No JVD, regular without rubs or gallops Pulmonary: Clear to auscultation bilaterally, no wheeze, rhonchi, rales or accessory muscle use Abdomen: Positive bowel sounds soft, nontender, nondistended no rebound, guarding, masses Extremities: No cyanosis clubbing or edema Neuro: No myoclonus, follows commands Psychiatric: Normal affect, alert and oriented x3 CBC Recent Labs 03/23/22 0503/22/2252304/22 0500 WBC 5.74 6.94 5.89 HGB 9.6* 9.9* 9.5* HCT 28.6* 29.5* 28.3* PLT 243 246 222 Renal Panel Recent Labs 03/23/22 0524 03/22/22 0524 03/21/22 0500 NA 134* 137 138 K 4.8 4.2 4.1 CL 100 101 102 CO2 25 24 25 AGAP 9 12 11 CREA 3.93* 4.24* 3.98* BUN 41* 34* 28* GLU 246* 101* 94 CA 9.1 9.0 8.8 PHOSPHORUS 4.5 4.3 4.6 ALB 3.6 3.7 3.4* Magnesium Recent Labs 03/21/22 0500 MG 1.9 Recent Labs RADIOLOGY: US RETROPERITONEAL Final Result IMPRESSION: 1. Negative ultrasound of the kidneys and bladder. ABDOMINAL, LIMITED (SPECIFY AREA) Final Result IMPRESSION: 1. Cholelithiasis without evidence of acute cholecystitis. 2. Small echogenic 1.1 cm lesion in the right liver is likely benign in the absence of known chronic liver disease or primary malignancy. Could consider assessment with MRI if there is a primary malignancy or known chronic liver disease. GASTRIC EMPTYING STUDY WITH SMALL BOWEL TRANSIT Final Result IMPRESSION: 1. Gastric emptying study within normal limits. *Gastric emptying values based on consensus recommendations for gastric emptying scintigraphy: A joint report of the [place] neurogastroenterology and motility society and the Society nuclear medicine. http://www.snm.org/[email or web address] Assessment & Plan 36-year-old male with type 1 diabetes presents with diabetic gastroparesis and multiple electrolyte abnormalities due to nausea vomiting and poor p.o. intake, acute kidney injury on chronic kidney disease which is secondary to diabetic nephropathy. 1)Diabetic gastroparesis Normal gastric emptying study, evidence of cholelithiasis, no cholecystitis. Status post GI evaluation, with recommendations for. outpatient follow-up in [place], [facility]. 2) ALEXUS Most likely secondary to prerenal/ hypovolemia with some component of ATN in the setting of advancedckd.Nonoliguric, indices improved with LR. Patient aware of the importance of close outpatient lab follow-up and he has standing orders for IV fluid that he can obtain regularly or as frequently asneeded but he and his mom will take advantage of. Aware of the importance of follow-up with nephrology 3) CKD,stage III-IV Diabetic nephropathy suspected, mother is aware of high risk to dialysis progression Baseline serum creatinine around 1.7-2.0 Follows with in [place] 4) Hypertension, primary Blood pressures improved overall, continue current management, desire to avoid hypotension at this time, no prn antihypertensives unless he is not able to keep his medicines down Continue carvedilol 6.25 mg twice daily Continue nifedipine ER 30 mg daily Hold lisinopril 5) Anemia of CKD, near goal S/p Epo, 10,000 units subcutaneous x 1 on 03/17/2022. Repeat dose today, 03/23/2022 Discussed with the patient and his mother present at the bedside Oskar Monae MD, FASN Keri Salas MD - 03/22/2022 8:17 AM PDT Images from the original note were not included. [facility] PROGRESS NOTE Patient Name: Mauri Levine : 1985 Admit Date: 03/13/2022 Attending Physician: Christopher Ma DO PCP: Flo Peña MD Date of Service: 03/22/2022 Hospital Day: 10 HOSPITAL COURSE 36-year-old male with major depressive disorder, historically uncontrolled diabetes mellitus type 1 complicated by gastroparesis that is post gastric stimulator, nephropathy who was hospitalized for the second time in 2 months for acute renal failure after exacerbations of gastroparesis led to intractable nausea vomiting and significant prerenal injury with ATN. Upon admission for both of these episodes the patient had significant metabolic encephalopathy. Patient is improving at this time, electrolytes as well as mental status better, attempting to reintroduce small frequent meals. Previously beenliving in a trailer on his parents property and then moved into their house when he was still havingdifficulty with managing his care, but it sounds like this is no longer an option and therefore discharge planning has been engaged to attempt and help him find other living arrangements. Patient is not interested in going to facility, though his mother reports that he is not able to come back with the m as she feels incapable of helping to care for him any longer. He does have a long history of noncompliance. Nephrology consulted for acute renal failure and electrolyte disturbances . 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 Currently no indication for dialysis initiation. -Worsening due to recurrent emesis with minimal oral intake. Improved with IV fluids given, but still with minimal improvement. -Continue to monitor. #Severe gastroparesis with history of gastric stimulator: Presenting with intractable nausea and vomiting: -Encourage small frequent meals. -Consulted accounts payable analyst for further education and assistance with meals -Due to persistent symptoms, GI consulted for consideration of GJ tube--planned for gastric emptyingstudy today to determine if gastric pacemaker is functioning. -Continue home medications, apparently intolerant of metoclopramide -Granisetron started by GI 03/20. -GI recommending he follow up with his GI group in [place] to discuss G-J tube further. -RUQ US done for recurrent nausea and vomiting with e/o cholelithiasis, but no obstructing stones. -Granisetron started by GI, which seems to be helping. #Acute metabolic encephalopathy secondary to above: -Resolved -His mother is concerned about his poor judgment, but also notes she wants to maintain his independence as much as possible. #Hypertension: Persistently elevated -Treatment at the discretion of nephrology -Continue to monitor closely #Major depressive disorder: -EKG repeated 03/19 for QT prolongation noted earlier in hospital stay--QTC 460 currently -Continue Mirtazapine, Effexor, re-started Fluoxetine -At patient request, low-dose PRN ativan ordered, but explained this will not be continued at discharge. #Type 1 diabetes, brittle, insulin-dependent: -clinical unit educator consulted. -Continue to monitor closely -Restarted Lantus at decreased dose of 20 units--decreased further to 15 units due to hypoglycemia despite PO intake. -Increase intensity of sliding scale insulin, but will need to decrease now Lantus being started in the morning. -Patient noted to have worsening hyperglycemia and increasing anion gap 03/19. Bolused with 2 L of fluid and more intensive insulin therapy resulted in normalization of this. -Unable to place pump until 03/23 as per nursing, only diabetic educators are able to do that. #Hypoglycemia: Resolved #Severe metabolic alkalosis: Resolved Controlled carb diet Full code Heparin Dispo: Continuing to look for alternative discharge plans. Will need further outpatient management for chronic gastroparesis symptoms as patient has had 19 hospitalizations since July of this year for this issue--recommend he follow up in [place] with group who placed gastric pacemaker. SUBJECTIVE CHIEF COMPLAINT: Acute metabolic encephalopathy OVERNIGHT EVENTS: Feels well today. No nausea/vomiting/CP/dyspnea/cough. Has felt well for the past 72 hours and tolerating PO well. Hypoglycemia yesterday, but BG's mostly well-controlled today. ROS: 10 point ROS otherwise negative unless documented above OBJECTIVE PHYSICAL EXAM: BP 148/85 | Pulse 86 | Temp (Src) 97.9 (Temporal) | Resp 16 | Ht 6' 1" (1.854 m) | Wt 157 lb 6.5 oz (71.4 kg) | SaO2 98% General: Chronically ill-appearing young gentleman sitting in bed in no apparent distress CV: RRR, no M/R/G, pulses in all extremities and no significant lower extremity edema Pulm: Lungs clear to auscultation bilaterally without increased work of breathing ABD: Soft, nontender, nondistended, positive bowel sounds MSK: No deformity Skin: No appreciable skin lesion or rash Neuro: ANO x3, CN-12 grossly intact, no focal deficit appreciated SCHEDULED Meds: I have personally reviewed the current medication list. insulin glargine, 15 Units, daily fluoxetine, 20 mg, daily insulin lispro, 0-5 Units, ac hs pantoprazole, 40 mg, daily NIFEdipine, 30 mg, daily famotidine, 20 mg, q2 days heparin, 5,000 Units, q12h carvedilol, 6.25 mg, bid mirtazapine, 15 mg, bedtime venlafaxine, 225 mg, daily IVF/IV Meds: lactated ringers PRN Meds: promethazine IV piggyback, 6.25 mg, q6h PRN Or promethazine IV piggyback, 12.5 mg, q6h PRN promethazine, 12.5 mg, q6h PRN melatonin, 6 mg, bedtime PRN dextrose, 50 mL, PRN ondansetron (Zofran) 2 mg/mL inj 4 mg, 4 mg, q6h PRN LABS: Labs in the last 24 hours POC Glucose Collection Time: 03/21/22 8:37 AM Result Value Ref Range Glucose (POC) 246 (H) 65 - 99 mg/dL POC Glucose Collection Time: 03/21/22 11:34 AM Result Value Ref Range Glucose (POC) 168 (H) 65 - 99 mg/dL POC Glucose Collection Time: 03/21/22 3:58 PM Result Value Ref Range Glucose (POC) 33 (LL) 65 - 99 mg/dL POC Glucose Collection Time: 03/21/22 4:12 PM Result Value Ref Range Glucose (POC) 30 (LL) 65 - 99 mg/dL POC Glucose Collection Time: 03/21/22 4:42 PM Result Value Ref Range Glucose (POC) 129 (H) 65 - 99 mg/dL POC Glucose Collection Time: 03/21/22 5:49 PM Result Value Ref Range Glucose (POC) 129 (H) 65 - 99 mg/dL POC Glucose Collection Time: 03/21/22 9:50 PM Result Value Ref Range Glucose (POC) 141 (H) 65 - 99 mg/dL Renal Profile Collection Time: 03/22/22 5:24 AM Result Value Ref Range Sodium 137 136 - 145 mmol/L Potassium 4.2 3.5 - 5.0 mmol/L Chloride 101 99 - 109 mmol/L CO2 24 23 - 33 mmol/L Anion Gap 12 5 - 16 ratio Creatinine 4.24 (H) 0.50 - 1.30 mg/dL BUN 34 (H) 8 - 25 mg/dL Glucose 101 (H) 65 - 99 mg/dL Calcium 9.0 8.5 - 10.2 mg/dL Phosphorus 4.3 2.3 - 4.8 mg/dL Albumin 3.7 3.5 - 5.0 g/dL Estimated Glomerular Filtration Rate (eGFR) 18 (L) >=60 mL/min/1.73 m2 CBC w/Auto Differential Collection Time: 03/22/22 5:24 AM Result Value Ref Range WBC 6.94 4.00 - 11.00 x10E3/uL RBC 3.51 (L) 4.30 - 5.70 x10E6/uL Hemoglobin 9.9 (L) 13.7 - 16.7 g/dL Hematocrit 29.5 (L) 40.0 - 50.0 % MCV 84.0 80.0 - 100.0 fL MCH 28.2 27.0 - 34.0 pg MCHC 33.6 31.5 - 35.7 g/dL RDW 16.0 (H) 11.0 - 15.0 % Platelet Count 246 150 - 400 x10E3/uL MPV 9.8 9.4 - 12.4 fL Neutrophils %, Automated 52.7 40.0 - 80.0 % Immature Granulocytes %, Automated 0.9 0.0 - 1.0 % Lymphocytes %, Automated 29.7 15.0 - 45.0 % Monocytes %, Automated 12.8 (H) 0.0 - 12.0 % Eosinophils %, Automated 3.3 0.0 - 7.0 % Basophils %, Automated 0.6 0.0 - 2.0 % Neutrophils Abs, Automated 3.66 2.00 - 7.30 x10E3/uL Immature Granulocyte Abs, Automated 0.06 (H) 0.00 - 0.05 x10E3/uL Lymphocytes Abs, Automated 2.06 1.00 - 3.40 x10E3/uL Monocytes Abs, Automated 0.89 (H) 0.00 - 0.80 x10E3/uL Eosinophils Abs, Automated 0.23 0.00 - 0.50 x10E3/uL Basophils Abs, Automated 0.04 0.00 - 0.10 x10E3/uL nRBC %, Automated 0.0 0.0 - 1.0 /100 WBC nRBC Abs, Automated 0.00 0.00 - 0.01 x10E3/uL POC Glucose Collection Time: 03/22/22 7:34 AM Result Value Ref Range Glucose (POC) 141 (H) 65 - 99 mg/dL RADIOLOGY: I have personally reviewed today's imaging US ABDOMINAL, LIMITED (SPECIFY AREA) Final Result IMPRESSION: 1. Cholelithiasis without evidence of acute cholecystitis. 2. Small echogenic 1.1 cm lesion in the right liver is likely benign in the absence of known chronic liver disease or primary malignancy. Could consider assessment with MRI if there is a primary malignancy or known chronic liver disease. GASTRIC EMPTYING STUDY WITH SMALL BOWEL TRANSIT Final Result IMPRESSION: 1. Gastric emptying study within normal limits. *Gastric emptying values based on consensus recommendations for gastric emptying scintigraphy: A joint report of the [place] neurogastroenterology and motility society and the Society nuclear medicine. http://www.snm.org/docs/[email or web address] RETROPERITONEAL (Results Pending) Additional Diagnostic Studies: Recent Results (from the past 168 hour(s)) EKG Collection Time: 03/19/22 7:17 PM Result Value Ref Range HEART RATE 98 bpm RR Interval 612 ms Atrial Rate 98 ms P-R Interval 165 ms P Duration 120 ms P Horizontal [place] 31 deg P Front [place] 63 deg Q Onset 503 ms QRSD Interval 84 ms QT Interval 360 ms QTcB 460 ms QTcF 424 ms QRS Horizontal [place] -33 deg QRS [place] 74 deg I-40 Horizontal [place] 95 deg I-40 Front [place] -30 deg T-40 Horizontal [place] -38 deg T-40 Front [place] 78 deg T Horizontal [place] 95 deg T Wave [place] 93 deg S-T Horizontal [place] 122 deg S-T Front [place] 116 deg Narrative - ABNORMAL ECG - Sinus rhythm Consider left ventricular hypertrophy Nonspecific T abnormalities, lateral leads Keri Salas MD 8:18 AM 03/22/2022 Oskar Monae MD - 03/22/2022 7:23 AM PDT Images from the original note were not included. Nephrology Progress Note CC: 36 year old male is seen for alexus 03/22/2022 Subjective Blood pressure remains labile but overall trend has improved. He states that he feels "magnificent."Appetite is fine, no emesis today. No shortness of breath edema fevers or chills. 10 out of 14 reviewed, all others negative except as above OBJECTIVE: Current Facility-Administered Medications Medication insulin glargine (Lantus) 100 units/mL inj 15 Units fluoxetine (PROzac) tablet 20 mg insulin lispro (HUMALOG) 100 units/mL single dose 0-5 Units pantoprazole (Protonix) inj 40 mg promethazine (Phenergan) 6.25 mg in 0.9 % NaCl (NS) 50 mL IV piggyback Or promethazine (Phenergan) 12.5 mg in 0.9 % NaCl (NS) 50 mL IV piggyback promethazine (PHENERGAN) tablet 12.5 mg NIFEdipine (Procardia XL) tablet SR 24 hr 30 mg famotidine (PEPCID) tablet 20 mg heparin 5000 units/mL inj 5,000 Units melatonin tablet 6 mg carvedilol (Coreg) tablet 6.25 mg mirtazapine (Remeron SolTab) tablet dispersible 15 mg venlafaxine (Effexor XR) capsule SR 24 hr 225 mg dextrose 50 % IV solution 50 mL ondansetron (Zofran) 2 mg/mL inj 4 mg VITALS: Temp: [96.8 F (36 C)-98.8 F (37.1 C)] 97.5 F (36.4 C) Pulse: [90-106] 90 Resp: [16] 16 BP: (123-156)/(78-95) 156/83 Temp (24hrs), Av F (36.7 C), Min:96.8 F (36 C), Max:98.8 F (37.1 C) In: 1490 [P.O.:1490] Out: 10 [Blood:10] Admit Weight: 03/13/2022 : Weight: 156 lb 12 oz (71.1 kg) Today's weight: Weight: 154 lb 5.2 oz (70 kg) PHYSICAL EXAM General: No acute distress, pleasant HEENT: Normocephalic atraumatic, extraocular movements intact, sclerae anicteric, oropharynx clear, mucous membranes moist Cardiovascular: No JVD, regular without rubs or gallops Pulmonary: Clear to auscultation bilaterally, no wheeze, rhonchi, rales or accessory muscle use Abdomen: Positive bowel sounds soft, nontender, nondistended no rebound, guarding, masses Extremities: No cyanosis clubbing or edema Neuro: No myoclonus, follows commands Psychiatric: Normal affect, alert and oriented x3 CBC Recent Labs 03/22/22 0524 03/21/22 0500 03/20/22 0534 WBC 6.94 5.89 8.43 HGB 9.9* 9.5* 9.9* HCT 29.5* 28.3* 29.8* PLT 246 222 233 Renal Panel Recent Labs 03/22/22 0524 03/21/22 0500 03/20/22 0534 03/19/22 1214 NA 137 138 135* 139 K 4.2 4.1 4.0 3.9 CL 101 102 98* 104 CO2 24 25 22* 20* AGAP 12 11 15 15 CREA 4.24* 3.98* 4.02* 4.36* BUN 34* 28* 28* 34* GLU 101* 94 149* 262* CA 9.0 8.8 8.9 8.5 PHOSPHORUS 4.3 4.6 3.9 -- ALB 3.7 3.4* 3.5 -- Magnesium Recent Labs 03/21/22 0500 03/20/22 0534 MG 1.9 1.9 Recent Labs RADIOLOGY: US ABDOMINAL, LIMITED (SPECIFY AREA) Final Result IMPRESSION: 1. Cholelithiasis without evidence of acute cholecystitis. 2. Small echogenic 1.1 cm lesion in the right liver is likely benign in the absence of known chronic liver disease or primary malignancy. Could consider assessment with MRI if there is a primary malignancy or known chronic liver disease. GASTRIC EMPTYING STUDY WITH SMALL BOWEL TRANSIT Final Result IMPRESSION: 1. Gastric emptying study within normal limits. *Gastric emptying values based on consensus recommendations for gastric emptying scintigraphy: A joint report of the [place] [employer] motility society and the Society nuclear medicine. [email or web address]/[email or web address] Assessment & Plan 36-year-old male with type 1 diabetes presents with diabetic gastroparesis and multiple electrolyte abnormalities due to nausea vomiting and poor p.o. intake, acute kidney injury on chronic kidney disease which is secondary to diabetic nephropathy. 1)Diabetic gastroparesis Normal gastric emptying study, evidence of cholelithiasis. On granisetron as well as recommendationsfor outpatient follow-up in [place], [facility]. 2) ALEXUS Most likely secondary to prerenal hypovolemia with some component of ATN in the setting of advanced ckd.Nonoliguric, indices worsened from yesterday. Provide 1 L of LR today and obtain a renal ultrasound. 3) CKD,stage III-IV Diabetic nephropathy suspected, mother is aware of high risk to dialysis progression Baseline serum creatinine around 1.7-2.0 Follows with in [place] 4) Hypertension, primary Blood pressures improved overall, continue current management, desire to avoid hypotension at this time, no prn antihypertensives unless he is not able to keep his medicines down Continue carvedilol 6.25 mg twice daily Continue nifedipine ER 30 mg daily Hold lisinopril 5) Anemia of CKD, near goal S/p Epo, 10,000 units subcutaneous x 1 on 03/17/2022 Discussed with the patient and his mom who was at his bedside We discussed the importance of follow-up with his outpatient plastics production machine operator including labs this comingweek once he is discharged. Oskar Monae MD, FASN Abdiel Roque DO - 03/21/2022 10:29 AM PDT INPATIENT PROGRESS NOTE Patient Name: Mauri Levine Date of : 1985 Referring Physician: Flo Peña MD Admitting Physician: Keri Salas MD SUBJECTIVE: Patient is a 36 year old male who Presents with severe nausea vomiting acute kidney injury and DKA. His complicated medical history which we again reviewed this morning. This includes history of gastric stimulator as well as following with his team at [facility] in [place]. He also hasbrittle diabetes and notes that he has had significant difficulty controlling his blood sugars even with his pump. He notes he has not seen his dust handler in over a year but has had 19 hospital evaluations and ER visits over the course the last calendar year. His mother who is at bedside is concerned that there has not been enough done to help him with his current situation. He follows with a gas troenterologist in [place] and also has a surgeon in [place] placed the stimulator and has made adjustments. This morning he notes he is feeling relatively well. He was able to eat breakfast without significant difficulty. He also was able to eat some yesterday with no associated vomiting. We reviewed again his ultrasound and his gastric emptying study. From a GI standpoint it appears that his gastric motility is functioning as expected. We did discuss that there are other etiologies for nausea triggers outside of gastric motility including electrolyte and renal dysfunction. ROS: General: stable weight Eyes: Denies vision changes eye drainage and eye pain Ears: denies tinnitus, ear pain, ear discharge Head and neck: Denies headaches, neck pain, sinus pressure Respiratory: Denies chest pain, cough, wheezing Cardiovascular: Denies chest pain, fainting, leg swelling, irregular heartbeat Gastrointestinal: Denies abdominal pain, constipation, diarrhea, heartburn, jaundice Musculoskeletal: generalized fatigue PHYSICAL EXAM Vitals : BP 150/85 | Pulse 96 | Temp (Src) 98.4 (Oral) | Resp 16 | Ht 6' 1" (1.854 m) | Wt 154 lb 8.7 oz (70.1 kg) | SaO2 100% Physical Exam Constitutional: Appearance: Normal appearance. HENT: Head: Normocephalic. Mouth/Throat: Mouth: Mucous membranes are dry. Cardiovascular: Rate and Rhythm: Normal rate. Pulmonary: Effort: Pulmonary effort is normal. No respiratory distress. Breath sounds: No stridor. Abdominal: Palpations: Abdomen is soft. Neurological: Mental Status: He is alert. Lab Labs in the last 72 hours POC Glucose Result Value Ref Range Glucose (POC) 351 (H) 65 - 99 mg/dL POC Glucose Result Value Ref Range Glucose (POC) 402 (H) 65 - 99 mg/dL POC Glucose Result Value Ref Range Glucose (POC) 326 (H) 65 - 99 mg/dL Renal Profile Result Value Ref Range Sodium 129 (L) 136 - 145 mmol/L Potassium 5.3 (H) 3.5 - 5.0 mmol/L Chloride 93 (L) 99 - 109 mmol/L CO2 19 (L) 23 - 33 mmol/L Anion Gap 17 (H) 5 - 16 ratio Creatinine 4.70 (H) 0.50 - 1.30 mg/dL BUN 35 (H) 8 - 25 mg/dL Glucose 412 (H) 65 - 99 mg/dL Calcium 8.8 8.5 - 10.2 mg/dL Phosphorus 3.8 2.3 - 4.8 mg/dL Albumin 3.4 (L) 3.5 - 5.0 g/dL Estimated Glomerular Filtration Rate (eGFR) 16 (L) >=60 mL/min/1.73 m2 Magnesium Result Value Ref Range Magnesium 2.1 1.7 - 2.4 mg/dL CBC w/Auto Differential Result Value Ref Range WBC 7.51 4.00 - 11.00 x10E3/uL RBC 3.51 (L) 4.30 - 5.70 x10E6/uL Hemoglobin 9.9 (L) 13.7 - 16.7 g/dL Hematocrit 29.8 (L) 40.0 - 50.0 % MCV 84.9 80.0 - 100.0 fL MCH 28.2 27.0 - 34.0 pg MCHC 33.2 31.5 - 35.7 g/dL RDW 15.0 11.0 - 15.0 % Platelet Count 225 150 - 400 x10E3/uL MPV 10.6 9.4 - 12.4 fL Neutrophils %, Automated 60.1 40.0 - 80.0 % Immature Granulocytes %, Automated 0.4 0.0 - 1.0 % Lymphocytes %, Automated 25.3 15.0 - 45.0 % Monocytes %, Automated 6.5 0.0 - 12.0 % Eosinophils %, Automated 6.9 0.0 - 7.0 % Basophils %, Automated 0.8 0.0 - 2.0 % Neutrophils Abs, Automated 4.51 2.00 - 7.30 x10E3/uL Immature Granulocyte Abs, Automated 0.03 0.00 - 0.05 x10E3/uL Lymphocytes Abs, Automated 1.90 1.00 - 3.40 x10E3/uL Monocytes Abs, Automated 0.49 0.00 - 0.80 x10E3/uL Eosinophils Abs, Automated 0.52 (H) 0.00 - 0.50 x10E3/uL Basophils Abs, Automated 0.06 0.00 - 0.10 x10E3/uL nRBC %, Automated 0.0 0.0 - 1.0 /100 WBC nRBC Abs, Automated 0.00 0.00 - 0.01 x10E3/uL POC Glucose Result Value Ref Range Glucose (POC) 438 (H) 65 - 99 mg/dL Basic Metabolic Panel Result Value Ref Range Sodium 133 (L) 136 - 145 mmol/L Potassium 4.2 3.5 - 5.0 mmol/L Chloride 95 (L) 99 - 109 mmol/L CO2 19 (L) 23 - 33 mmol/L Anion Gap 19 (H) 5 - 16 ratio Creatinine 4.42 (H) 0.50 - 1.30 mg/dL BUN 36 (H) 8 - 25 mg/dL Glucose 382 (H) 65 - 99 mg/dL Calcium 9.1 8.5 - 10.2 mg/dL Estimated Glomerular Filtration Rate (eGFR) 17 (L) >=60 mL/min/1.73 m2 POC Glucose Result Value Ref Range Glucose (POC) 327 (H) 65 - 99 mg/dL POC Glucose Result Value Ref Range Glucose (POC) 262 (H) 65 - 99 mg/dL Basic Metabolic Panel Result Value Ref Range Sodium 139 136 - 145 mmol/L Potassium 3.9 3.5 - 5.0 mmol/L Chloride 104 99 - 109 mmol/L CO2 20 (L) 23 - 33 mmol/L Anion Gap 15 5 - 16 ratio Creatinine 4.36 (H) 0.50 - 1.30 mg/dL BUN 34 (H) 8 - 25 mg/dL Glucose 262 (H) 65 - 99 mg/dL Calcium 8.5 8.5 - 10.2 mg/dL Estimated Glomerular Filtration Rate (eGFR) 17 (L) >=60 mL/min/1.73 m2 POC Glucose Result Value Ref Range Glucose (POC) 128 (H) 65 - 99 mg/dL POC Glucose Result Value Ref Range Glucose (POC) 167 (H) 65 - 99 mg/dL Renal Profile Result Value Ref Range Sodium 135 (L) 136 - 145 mmol/L Potassium 4.0 3.5 - 5.0 mmol/L Chloride 98 (L) 99 - 109 mmol/L CO2 22 (L) 23 - 33 mmol/L Anion Gap 15 5 - 16 ratio Creatinine 4.02 (H) 0.50 - 1.30 mg/dL BUN 28 (H) 8 - 25 mg/dL Glucose 149 (H) 65 - 99 mg/dL Calcium 8.9 8.5 - 10.2 mg/dL Phosphorus 3.9 2.3 - 4.8 mg/dL Albumin 3.5 3.5 - 5.0 g/dL Estimated Glomerular Filtration Rate (eGFR) 19 (L) >=60 mL/min/1.73 m2 Magnesium Result Value Ref Range Magnesium 1.9 1.7 - 2.4 mg/dL CBC w/Auto Differential Result Value Ref Range WBC 8.43 4.00 - 11.00 x10E3/uL RBC 3.55 (L) 4.30 - 5.70 x10E6/uL Hemoglobin 9.9 (L) 13.7 - 16.7 g/dL Hematocrit 29.8 (L) 40.0 - 50.0 % MCV 83.9 80.0 - 100.0 fL MCH 27.9 27.0 - 34.0 pg MCHC 33.2 31.5 - 35.7 g/dL RDW 15.5 (H) 11.0 - 15.0 % Platelet Count 233 150 - 400 x10E3/uL MPV 10.7 9.4 - 12.4 fL Neutrophils %, Automated 63.2 40.0 - 80.0 % Immature Granulocytes %, Automated 0.6 0.0 - 1.0 % Lymphocytes %, Automated 21.8 15.0 - 45.0 % Monocytes %, Automated 6.8 0.0 - 12.0 % Eosinophils %, Automated 7.0 0.0 - 7.0 % Basophils %, Automated 0.6 0.0 - 2.0 % Neutrophils Abs, Automated 5.33 2.00 - 7.30 x10E3/uL Immature Granulocyte Abs, Automated 0.05 0.00 - 0.05 x10E3/uL Lymphocytes Abs, Automated 1.84 1.00 - 3.40 x10E3/uL Monocytes Abs, Automated 0.57 0.00 - 0.80 x10E3/uL Eosinophils Abs, Automated 0.59 (H) 0.00 - 0.50 x10E3/uL Basophils Abs, Automated 0.05 0.00 - 0.10 x10E3/uL nRBC %, Automated 0.0 0.0 - 1.0 /100 WBC nRBC Abs, Automated 0.00 0.00 - 0.01 x10E3/uL POC Glucose Result Value Ref Range Glucose (POC) 180 (H) 65 - 99 mg/dL POC Glucose Result Value Ref Range Glucose (POC) 326 (H) 65 - 99 mg/dL POC Glucose Result Value Ref Range Glucose (POC) 221 (H) 65 - 99 mg/dL POC Glucose Result Value Ref Range Glucose (POC) 211 (H) 65 - 99 mg/dL POC Glucose Result Value Ref Range Glucose (POC) 180 (H) 65 - 99 mg/dL Magnesium Result Value Ref Range Magnesium 1.9 1.7 - 2.4 mg/dL CBC w/Auto Differential Result Value Ref Range WBC 5.89 4.00 - 11.00 x10E3/uL RBC 3.36 (L) 4.30 - 5.70 x10E6/uL Hemoglobin 9.5 (L) 13.7 - 16.7 g/dL Hematocrit 28.3 (L) 40.0 - 50.0 % MCV 84.2 80.0 - 100.0 fL MCH 28.3 27.0 - 34.0 pg MCHC 33.6 31.5 - 35.7 g/dL RDW 15.5 (H) 11.0 - 15.0 % Platelet Count 222 150 - 400 x10E3/uL MPV 9.8 9.4 - 12.4 fL Neutrophils %, Automated 43.4 40.0 - 80.0 % Immature Granulocytes %, Automated 0.8 0.0 - 1.0 % Lymphocytes %, Automated 39.6 15.0 - 45.0 % Monocytes %, Automated 8.5 0.0 - 12.0 % Eosinophils %, Automated 7.0 0.0 - 7.0 % Basophils %, Automated 0.7 0.0 - 2.0 % Neutrophils Abs, Automated 2.56 2.00 - 7.30 x10E3/uL Immature Granulocyte Abs, Automated 0.05 0.00 - 0.05 x10E3/uL Lymphocytes Abs, Automated 2.33 1.00 - 3.40 x10E3/uL Monocytes Abs, Automated 0.50 0.00 - 0.80 x10E3/uL Eosinophils Abs, Automated 0.41 0.00 - 0.50 x10E3/uL Basophils Abs, Automated 0.04 0.00 - 0.10 x10E3/uL nRBC %, Automated 0.0 0.0 - 1.0 /100 WBC nRBC Abs, Automated 0.00 0.00 - 0.01 x10E3/uL Comprehensive Metabolic Panel Result Value Ref Range Sodium 138 136 - 145 mmol/L Potassium 4.1 3.5 - 5.0 mmol/L Chloride 102 99 - 109 mmol/L CO2 25 23 - 33 mmol/L Anion Gap 11 5 - 16 ratio Creatinine 3.98 (H) 0.50 - 1.30 mg/dL BUN 28 (H) 8 - 25 mg/dL Glucose 94 65 - 99 mg/dL Calcium 8.8 8.5 - 10.2 mg/dL Total Protein 6.0 (L) 6.3 - 8.0 g/dL Albumin 3.4 (L) 3.5 - 5.0 g/dL Globulin 2.6 1.8 - 3.5 g/dL Albumin/Globulin Ratio 1.3 1.0 - 2.7 ratio Total Bilirubin <0.2 0.1 - 1.5 mg/dL ALT 10 10 - 65 U/L Alk Phos 83 35 - 115 U/L AST 15 10 - 45 U/L Estimated Glomerular Filtration Rate (eGFR) 19 (L) >=60 mL/min/1.73 m2 Phosphorus Result Value Ref Range Phosphorus 4.6 2.3 - 4.8 mg/dL POC Glucose Result Value Ref Range Glucose (POC) 246 (H) 65 - 99 mg/dL Imaging: US ABDOMINAL, LIMITED (SPECIFY AREA) Result Date: 03/21/2022 EXAM: US ABDOMINAL, LIMITED (SPECIFY AREA) HISTORY: Other (please add comment) COMPARISON: 01/03/2022TECHNICAL DATA: Targeted ultrasound examination of the right upper quadrant of the abdomen performed, directed at the area of interest. Doppler assessment performed where necessary. The study was requested as a limited exam of the right upper quadrant of the abdomen and is not a comprehensive abdominal ultrasound examination. FINDINGS: Liver: The liver is normal in size. Craniocaudal diameter of the liver was measured at 15.9 cm at the level of the mid clavicular line. Small echogenic 1.1 cm lesion in the right hepatic lobe. Patent portal vein. Biliary ducts: The intrahepatic and extrahepatic biliary ducts are normal. The common bile duct measures 0.5 cm in diameter. Gallbladder: Small mobile stones. Borderline wall thickness. Gallbladder partially decompressed. Negative sonographic Gilmore's sign. Pancreas: The visible pancreas is normal in appearance. Other: No free fluid. IMPRESSION: 1. Cholelithiasis without evidence of acute cholecystitis. 2. Small echogenic 1.1 cm lesion in the right liver is likely benign in the absence of known chronic liver disease or primary malignancy. Could consider assessment with MRI if there is a primary malignancy or known chronic liver disease. : Hemoglobin Date Value Ref Range Status 03/21/2022 9.5 (L) 13.7 - 16.7 g/dL Final Hematocrit Date Value Ref Range Status 03/21/2022 28.3 (L) 40.0 - 50.0 % Final Platelet Count Date Value Ref Range Status 03/21/2022 222 150 - 400 x10E3/uL Final INR Date Value Ref Range Status 03/13/2022 1.0 0.9 - 1.2 ratio Final Comment: Non-Oral Anticoagulation: 0.9-1.2 Usual Oral Anticoagulation: 2.0-3.0 High Oral Anticoagulation Range: 2.5-3.5 Sodium Date Value Ref Range Status 03/21/2022 138 136 - 145 mmol/L Final Potassium Date Value Ref Range Status 03/21/2022 4.1 3.5 - 5.0 mmol/L Final Chloride Date Value Ref Range Status 03/21/2022 102 99 - 109 mmol/L Final CO2 Date Value Ref Range Status 03/21/2022 25 23 - 33 mmol/L Final BUN Date Value Ref Range Status 03/21/2022 28 (H) 8 - 25 mg/dL Final Creatinine Date Value Ref Range Status 03/21/2022 3.98 (H) 0.50 - 1.30 mg/dL Final Specific [place], Urine Date Value Ref Range Status 03/13/2022 1.010 1.001 - 1.030 Final Protein, Urine Date Value Ref Range Status 03/13/2022 100 (A) Negative mg/dL Final Sodium Date Value Ref Range Status 03/21/2022 138 136 - 145 mmol/L Final Potassium Date Value Ref Range Status 03/21/2022 4.1 3.5 - 5.0 mmol/L Final Chloride Date Value Ref Range Status 03/21/2022 102 99 - 109 mmol/L Final CO2 Date Value Ref Range Status 03/21/2022 25 23 - 33 mmol/L Final BUN Date Value Ref Range Status 03/21/2022 28 (H) 8 - 25 mg/dL Final Creatinine Date Value Ref Range Status 03/21/2022 3.98 (H) 0.50 - 1.30 mg/dL Final Glucose Date Value Ref Range Status 03/21/2022 94 65 - 99 mg/dL Final Alk Phos Date Value Ref Range Status 03/21/2022 83 35 - 115 U/L Final Total Bilirubin Date Value Ref Range Status 03/21/2022 <0.2 0.1 - 1.5 mg/dL Final Total Protein Date Value Ref Range Status 03/21/2022 6.0 (L) 6.3 - 8.0 g/dL Final Albumin Date Value Ref Range Status 03/21/2022 3.4 (L) 3.5 - 5.0 g/dL Final Calcium Date Value Ref Range Status 03/21/2022 8.8 8.5 - 10.2 mg/dL Final ASSESSMENT: Patient Active Problem List Diagnosis Acute renal failure (ARF) (CMS/HCC) Respiratory failure (CMS/HCC) Metabolic alkalosis Stage 3a chronic kidney disease (CMS/HCC) Hyperosmolar hyperglycemic state (HHS) (CMS/HCC) Mitral valve prolapse Nonrheumatic aortic valve insufficiency Anemia Prolonged Q-T interval on ECG Non compliance w medication regimen Sepsis (CMS/HCC) PLAN: Nausea and vomiting Improved overall able to tolerate breakfast and today. States that he is not nauseous and did not have any vomiting overnight. Concerns exist about recurrence of episodes. Again reiterated follow-up with his primary team who he is already established with. Other considerations would be further discussion about ongoing glucose fluctuations and his baseline renal disease. Abnormal ultrasound imaging of the liver with changes identified. Would recommend outpatient follow-up with his primary manager technical services and consideration of more enhanced imaging. This is somewhat difficult in the setting of renal disease and gastric pacer as he may need timing related to contrast discussed for triple phase CT versus serial ultrasounds or further laboratory work-up. Likely not contributing to his acute symptoms would recommend follow-up in next 2 to 3 months with his primary GI. Gastroparesis noted in the history with gastric stimulator. Recent gastric emptying study shows normal emptying study suggesting appropriate functioning. Cholelithiasis noted on ultrasound currently this is not causing lab abnormalities suspect correlation with chronic presentation. Does not show changes that would require surgical intervention currently. No further plans from a GI standpoint we will sign off. Abdiel Roque DO Keri Salas MD - 03/21/2022 7:45 AM PDT Images from the original note were not included. [facility] PROGRESS NOTE Patient Name: Mauri Levine : 1985 Admit Date: 03/13/2022 Attending Physician: Christopher Ma DO PCP: Flo Peña MD Date of Service: 03/21/2022 Hospital Day: 9 HOSPITAL COURSE 36-year-old male with major depressive disorder, historically uncontrolled diabetes mellitus type 1 complicated by gastroparesis that is post gastric stimulator, nephropathy who was hospitalized for the second time in 2 months for acute renal failure after exacerbations of gastroparesis led to intractable nausea vomiting and significant prerenal injury with ATN. Upon admission for both of these episodes the patient had significant metabolic encephalopathy. Patient is improving at this time, electrolytes as well as mental status better, attempting to reintroduce small frequent meals. Previously beenliving in a trailer on his parents property and then moved into their house when he was still havingdifficulty with managing his care, but it sounds like this is no longer an option and therefore discharge planning has been engaged to attempt and help him find other living arrangements. Patient is not interested in going to facility, though his mother reports that he is not able to come back with the m as she feels incapable of helping to care for him any longer. He does have a long history of noncompliance. Nephrology consulted for acute renal failure and electrolyte disturbances . 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 Currently no indication for dialysis initiation. -Worsening due to recurrent emesis with minimal oral intake. Improved with IV fluids given. -Continue to monitor #Severe gastroparesis with history of gastric stimulator: Presenting with intractable nausea and vomiting: -Encourage small frequent meals. -Consulted accounts payable analyst for further education and assistance with meals -Due to persistent symptoms, GI consulted for consideration of GJ tube--planned for gastric emptyingstudy today to determine if gastric pacemaker is functioning. -Continue home medications, apparently intolerant of metoclopramide -Granisetron started by GI 03/20. -GI recommending he follow up with his GI group in [place] to discuss G-J tube further. -RUQ US done for recurrent nausea and vomiting with e/o cholelithiasis, but no obstructing stones. #Acute metabolic encephalopathy secondary to above: Appears greatly improved. His mother is concerned about his poor judgment, but also notes she wants to maintain his independence as much as possible. #Hypertension: Persistently elevated -Treatment at the discretion of nephrology -Continue to monitor closely #Major depressive disorder: -EKG repeated 03/19 for QT prolongation noted earlier in hospital stay--QTC 460 currently -Continue Mirtazapine, Effexor, re-start Fluoxetine #Type 1 diabetes, brittle, insulin-dependent: -Continue insulin therapy--patient requesting his insulin pump be connected again, but due to continued lability, will hold off for now. -clinical unit educator consulted. -Continue to monitor closely -Restart Lantus at decreased dose of 20 units. -Increase intensity of sliding scale insulin, but will need to decrease now Lantus being started in the morning. -Patient noted to have worsening hyperglycemia and increasing anion gap 03/19. Bolused with 2 L of fluid and more intensive insulin therapy resulted in normalization of this. #Hypoglycemia: Resolved #Severe metabolic alkalosis: Resolved Gastroparesis diet Full code Heparin Dispo: Continuing to look for alternative discharge plans. Will need further outpatient management for chronic gastroparesis symptoms as patient has had 19 hospitalizations since July of this year for this issue. SUBJECTIVE CHIEF COMPLAINT: Acute metabolic encephalopathy OVERNIGHT EVENTS: Feels well today. No nausea/vomiting/CP/dyspnea/cough. Has felt well for the past 48 hours and tolerating PO well. ROS: 10 point ROS otherwise negative unless documented above OBJECTIVE PHYSICAL EXAM: BP 121/71 | Pulse 73 | Temp (Src) 97.9 (Temporal) | Resp 16 | Ht 6' 1" (1.854 m) | Wt 154 lb 5.2 oz (70 kg) | SaO2 97% General: Chronically ill-appearing young gentleman sitting in bed in no apparent distress CV: RRR, no M/R/G, pulses in all extremities and no significant lower extremity edema Pulm: Lungs clear to auscultation bilaterally without increased work of breathing ABD: Soft, nontender, nondistended, positive bowel sounds MSK: No deformity Skin: No appreciable skin lesion or rash Neuro: ANO x3, CN-12 grossly intact, no focal deficit appreciated SCHEDULED Meds: I have personally reviewed the current medication list. fluoxetine, 20 mg, daily granisetron, 1 mg, bedtime insulin lispro, 0-5 Units, ac hs insulin glargine, 20 Units, daily pantoprazole, 40 mg, daily NIFEdipine, 30 mg, daily famotidine, 20 mg, q2 days heparin, 5,000 Units, q12h carvedilol, 6.25 mg, bid mirtazapine, 15 mg, bedtime venlafaxine, 225 mg, daily IVF/IV Meds: PRN Meds: promethazine IV piggyback, 6.25 mg, q6h PRN Or promethazine IV piggyback, 12.5 mg, q6h PRN promethazine, 12.5 mg, q6h PRN melatonin, 6 mg, bedtime PRN dextrose, 50 mL, PRN ondansetron (Zofran) 2 mg/mL inj 4 mg, 4 mg, q6h PRN LABS: Labs in the last 24 hours POC Glucose Collection Time: 03/20/22 8:23 AM Result Value Ref Range Glucose (POC) 180 (H) 65 - 99 mg/dL POC Glucose Collection Time: 03/20/22 11:42 AM Result Value Ref Range Glucose (POC) 326 (H) 65 - 99 mg/dL POC Glucose Collection Time: 03/20/22 3:52 PM Result Value Ref Range Glucose (POC) 221 (H) 65 - 99 mg/dL POC Glucose Collection Time: 03/20/22 8:16 PM Result Value Ref Range Glucose (POC) 211 (H) 65 - 99 mg/dL POC Glucose Collection Time: 03/20/22 11:41 PM Result Value Ref Range Glucose (POC) 180 (H) 65 - 99 mg/dL Magnesium Collection Time: 03/21/22 5:00 AM Result Value Ref Range Magnesium 1.9 1.7 - 2.4 mg/dL CBC w/Auto Differential Collection Time: 03/21/22 5:00 AM Result Value Ref Range WBC 5.89 4.00 - 11.00 x10E3/uL RBC 3.36 (L) 4.30 - 5.70 x10E6/uL Hemoglobin 9.5 (L) 13.7 - 16.7 g/dL Hematocrit 28.3 (L) 40.0 - 50.0 % MCV 84.2 80.0 - 100.0 fL MCH 28.3 27.0 - 34.0 pg MCHC 33.6 31.5 - 35.7 g/dL RDW 15.5 (H) 11.0 - 15.0 % Platelet Count 222 150 - 400 x10E3/uL MPV 9.8 9.4 - 12.4 fL Neutrophils %, Automated 43.4 40.0 - 80.0 % Immature Granulocytes %, Automated 0.8 0.0 - 1.0 % Lymphocytes %, Automated 39.6 15.0 - 45.0 % Monocytes %, Automated 8.5 0.0 - 12.0 % Eosinophils %, Automated 7.0 0.0 - 7.0 % Basophils %, Automated 0.7 0.0 - 2.0 % Neutrophils Abs, Automated 2.56 2.00 - 7.30 x10E3/uL Immature Granulocyte Abs, Automated 0.05 0.00 - 0.05 x10E3/uL Lymphocytes Abs, Automated 2.33 1.00 - 3.40 x10E3/uL Monocytes Abs, Automated 0.50 0.00 - 0.80 x10E3/uL Eosinophils Abs, Automated 0.41 0.00 - 0.50 x10E3/uL Basophils Abs, Automated 0.04 0.00 - 0.10 x10E3/uL nRBC %, Automated 0.0 0.0 - 1.0 /100 WBC nRBC Abs, Automated 0.00 0.00 - 0.01 x10E3/uL Comprehensive Metabolic Panel Collection Time: 03/21/22 5:00 AM Result Value Ref Range Sodium 138 136 - 145 mmol/L Potassium 4.1 3.5 - 5.0 mmol/L Chloride 102 99 - 109 mmol/L CO2 25 23 - 33 mmol/L Anion Gap 11 5 - 16 ratio Creatinine 3.98 (H) 0.50 - 1.30 mg/dL BUN 28 (H) 8 - 25 mg/dL Glucose 94 65 - 99 mg/dL Calcium 8.8 8.5 - 10.2 mg/dL Total Protein 6.0 (L) 6.3 - 8.0 g/dL Albumin 3.4 (L) 3.5 - 5.0 g/dL Globulin 2.6 1.8 - 3.5 g/dL Albumin/Globulin Ratio 1.3 1.0 - 2.7 ratio Total Bilirubin <0.2 0.1 - 1.5 mg/dL ALT 10 10 - 65 U/L Alk Phos 83 35 - 115 U/L AST 15 10 - 45 U/L Estimated Glomerular Filtration Rate (eGFR) 19 (L) >=60 mL/min/1.73 m2 Phosphorus Collection Time: 03/21/22 5:00 AM Result Value Ref Range Phosphorus 4.6 2.3 - 4.8 mg/dL RADIOLOGY: I have personally reviewed today's imaging US ABDOMINAL, LIMITED (SPECIFY AREA) Final Result IMPRESSION: 1. Cholelithiasis without evidence of acute cholecystitis. 2. Small echogenic 1.1 cm lesion in the right liver is likely benign in the absence of known chronic liver disease or primary malignancy. Could consider assessment with MRI if there is a primary malignancy or known chronic liver disease. GASTRIC EMPTYING STUDY WITH SMALL BOWEL TRANSIT Final Result IMPRESSION: 1. Gastric emptying study within normal limits. *Gastric emptying values based on consensus recommendations for gastric emptying scintigraphy: A joint report of the [place] neurogastroenterology and motility society and the Society nuclear medicine. [email or web address]://[email or web address] Additional Diagnostic Studies: Recent Results (from the past 168 hour(s)) EKG Collection Time: 03/19/22 7:17 PM Result Value Ref Range HEART RATE 98 bpm RR Interval 612 ms Atrial Rate 98 ms P-R Interval 165 ms P Duration 120 ms P Horizontal Dar[place] 31 deg P Front [place] 63 deg Q Onset 503 ms QRSD Interval 84 ms QT Interval 360 ms QTcB 460 ms QTcF 424 ms QRS Horizontal Darlington -33 deg QRS Darlington 74 deg I-40 Horizontal Darlington 95 deg I-40 Front Darlington -30 deg T-40 Horizontal Darlington -38 deg T-40 Front [place] 78 deg T Horizontal [place] 95 deg T Wave [place] 93 deg S-T Horizontal [place] 122 deg S-T Front [place] 116 deg Narrative - ABNORMAL ECG - Sinus rhythm Consider left ventricular hypertrophy Nonspecific T abnormalities, lateral leads Keri Salas MD 7:45 AM 03/21/2022 Oskar Monae MD - 03/21/2022 7:16 AM PDT Images from the original note were not included. Nephrology Progress Note CC: 36 year old male is seen for alexus 03/21/2022 Subjective Normal gastric emptying study. Ultrasound obtained with evidence of cholelithiasis, no cholecystitis. Blood pressure is improved. Eating and drinking fine, no current nausea and vomiting. 10 out of 14 reviewed, all others negative except as above OBJECTIVE: Current Facility-Administered Medications Medication fluoxetine (PROzac) tablet 20 mg granisetron (Kytril) 1 mg/mL inj 1 mg insulin lispro (HUMALOG) 100 units/mL single dose 0-5 Units insulin glargine (Lantus) 100 units/mL inj 20 Units pantoprazole (Protonix) inj 40 mg promethazine (Phenergan) 6.25 mg in 0.9 % NaCl (NS) 50 mL IV piggyback Or promethazine (Phenergan) 12.5 mg in 0.9 % NaCl (NS) 50 mL IV piggyback promethazine (PHENERGAN) tablet 12.5 mg NIFEdipine (Procardia XL) tablet SR 24 hr 30 mg famotidine (PEPCID) tablet 20 mg heparin 5000 units/mL inj 5,000 Units melatonin tablet 6 mg carvedilol (Coreg) tablet 6.25 mg mirtazapine (Remeron SolTab) tablet dispersible 15 mg venlafaxine (Effexor XR) capsule SR 24 hr 225 mg dextrose 50 % IV solution 50 mL ondansetron (Zofran) 2 mg/mL inj 4 mg VITALS: Temp: [97.7 F (36.5 C)-99.1 F (37.3 C)] 97.9 F (36.6 C) Pulse: [73-106] 73 Resp: [16-20] 16 BP: (121-174)/(70-97) 121/71 Temp (24hrs), Av.4 F (36.9 C), Min:97.7 F (36.5 C), Max:99.1 F (37.3 C) In: - Out: 150 [Emesis:150] Admit Weight: 03/13/2022 : Weight: 156 lb 12 oz (71.1 kg) Today's weight: Weight: 154 lb 5.2 oz (70 kg) PHYSICAL EXAM General: No acute distress, pleasant HEENT: Normocephalic atraumatic, extraocular movements intact, sclerae anicteric, oropharynx clear, mucous membranes moist Cardiovascular: No JVD, regular without rubs or gallops Pulmonary: Clear to auscultation bilaterally, no wheeze, rhonchi, rales or accessory muscle use Abdomen: Positive bowel sounds soft, nontender, nondistended no rebound, guarding, masses Extremities: No cyanosis clubbing or edema Neuro: No myoclonus, follows commands Psychiatric: Normal affect, alert and oriented x3 CBC Recent Labs 03/21/22 0500 03/20/22 0534 03/19/22 0636 WBC 5.89 8.43 7.51 HGB 9.5* 9.9* 9.9* HCT 28.3* 29.8* 29.8* PLT 222 233 225 Renal Panel Recent Labs 03/21/22 0500 03/20/22 0534 03/19/22 1214 03/19/22 1014 03/19/22 0636 NA 138 135* 139 133* 129* K 4.1 4.0 3.9 4.2 5.3* CL 102 98* 104 95* 93* CO2 25 22* 20* 19* 19* AGAP 11 15 15 19* 17* CREA 3.98* 4.02* 4.36* 4.42* 4.70* BUN 28* 28* 34* 36* 35* GLU 94 149* 262* 382* 412* CA 8.8 8.9 8.5 9.1 8.8 PHOSPHORUS 4.6 3.9 -- -- 3.8 ALB 3.4* 3.5 -- -- 3.4* Magnesium Recent Labs 03/21/22 0500 03/20/22 0534 03/19/22 0636 MG 1.9 1.9 2.1 Renal Panel Recent Labs RADIOLOGY: US ABDOMINAL, LIMITED (SPECIFY AREA) Final Result IMPRESSION: 1. Cholelithiasis without evidence of acute cholecystitis. 2. Small echogenic 1.1 cm lesion in the right liver is likely benign in the absence of known chronic liver disease or primary malignancy. Could consider assessment with MRI if there is a primary malignancy or known chronic liver disease. GASTRIC EMPTYING STUDY WITH SMALL BOWEL TRANSIT Final Result IMPRESSION: 1. Gastric emptying study within normal limits. *Gastric emptying values based on consensus recommendations for gastric emptying scintigraphy: A joint report of the [place] neurogastroenterology and motility society and the Society nuclear medicine. http://www.snm.org/[email or web address] Assessment & Plan 36-year-old male with type 1 diabetes presents with diabetic gastroparesis and multiple electrolyte abnormalities due to nausea vomiting and poor p.o. intake, acute kidney injury on chronic kidney disease which is secondary to diabetic nephropathy. 1)Diabetic gastroparesis Normal gastric emptying study, evidence of cholelithiasis. Working on obtaining granisetron as well as outpatient follow-up in [facility]. 2) ALEXUS Most likely secondary to prerenal hypovolemia with some component of ATN in the setting of ckd.Nonoliguric, slowly improving status post IV fluid on Tuesday, improved GI symptoms, no dialysis indications. Continue to follow serially. 3) CKD,stage III-IV Diabetic nephropathy suspected, mother is aware of high risk to dialysis progression Baseline serum creatinine around 1.7-2.0 Follows with in [place] 4) Hypertension, primary Blood pressures improved, desire to avoid hypotension at this time, no prn antihypertensives unless he is not able to keep his medicines down Continue carvedilol 6.25 mg twice daily Continue nifedipine ER 30 mg daily Hold lisinopril 5) Anemia of CKD, near goal S/p Epo, 10,000 units subcutaneous x 1 on 03/17/2022 Discussed with the patient and his mom who was at his bedside We discussed the importance of follow-up with his outpatient plastics production machine operator including labs this comingweek if he is discharged this weekend. Oskar Monae MD, FASN Martinez Tariq MD - 03/20/2022 1:09 PM PDT Images from the original note were not included. Gastroenterology Progress Note Mauri Levine 1985 [id number] Chief Complaint: Follow-up gastroparesis with morning nausea/vomiting Subjective: I saw Mr. Levine today in his hospital room. He reports actually doing pretty good today.He has a largely empty plate of food at the bedside table, but did not eat the green apples, and only part of the soup that contained cooked carrots. He also did not finish his green beans. We reviewedthe results of the gastric emptying study from yesterday, and he did have some emesis last night buthe says that that was essentially just "spit", and did not contain any of the radiolabeled food or undigested food. We spent a good bit of time reviewing his previous history. It sounds like his manager technical services Jun or Mikey actually sent him to [facility] to just have the gastric pacemaker placed.It sounds like he does not have a manager technical services in [place], but does see the surgeon that placed the device for adjustments. His last time visiting with them was about a year ago. We reviewed that in the past he had been on metoclopramide which caused tics, erythromycin which lost effect as his typical, and in the past was also on domperidone, and that ondansetron and other antiemetics seem to work less well than they had in the past. It sounds like venting and feeding enteric access has been discussed but not pursued definitively. He also thinks that maybe some of the symptoms could be related to gallstones. Apparently he was imaged in the past, and told he had some gallstones but they were not bad enough to worry about. Allergies: Patients documented allergies Allergen Reactions Prochlorperazine Unknown and Agitation/Anxiety "My whole body freaks out" Per [facility] Silver Rash Silver Nitrate Rash Other reaction(s): dystonic Iodinated Diagnostic Agents Unknown Dystonic Per [facility] Nsaids Unknown Per [facility] Metoclopramide Agitation/Anxiety Per [facility] Other reaction(s): Agitated PHYSICAL EXAM: BP 174/97 | Pulse 88 | Temp (Src) 97.7 (Temporal) | Resp 20 | Ht 6' 1" (1.854 m) | Wt 154 lb 5.2 oz (70 kg) | SaO2 99% General: Well-developed, well-nourished, nontoxic and in no acute distress Eyes: Anicteric conjunctiva Neck: Trachea midline Lungs: Breathing is nonlabored Abdomen: Nondistended Psych: Mood and affect normal Neuro: No gross deficits Skin: Hypopigmented striae on the proximal upper extremities Assessment and Plan: 1. Type 1 diabetes-intermediate control 2. Acute kidney injury on chronic diabetic nephropathy 3. Gastroparesis with gastric pacemaker in place and active 4. Recurrent nausea and vomiting 5. Peripheral neuropathy 6. Reported cholelithiasis Very complex situation. Overall he is doing reasonly well today, and his gastric emptying study yesterday actually shows what could be classified as rapid emptying with a value of greater than 90% at the 2-hour az. Certainly it does not show catastrophic gastroparesis. I did discuss with him and theprimary service both that these types of studies are more art and science a lot of times, and while this test was helpful in ruling out completely refractory gastroparesis it still is quite likely thatgastroparesis is a significant contributor to his symptom burden. I agree with him know that there is a possibility that this could be atypical biliary colic which isnot an uncommon way to present in severe diabetics. They more often the nondiabetics can have a lackof right upper quadrant pain or localizing symptoms. His current symptom burden seems to be worse inthe morning, and with the gastric pacemaker in place, and active and the GES results I wonder if some of this is not actually just an overly empty stomach, and he does endorse some component of his symptoms being worse or almost associated with "hunger pains". He does try to take a snack before bed, but it is unclear how helpful this is. I do not think we will ever get him symptom-free, but from a practical standpoint trying to come up with some program that keeps him out of the hospital, DKA, recurrent severe kidney injury, etc. wouldbe helpful. To that point having enteral access with something like a jejunostomy tube to be able to provide medication, hydration, and calories during these episodes could be helpful. However I did not feel that the local GI service here in jumping into his care at this juncture is the right team to make that decision. I strongly encouraged him to reconnect with the team in [place], and let them know that he has had 19 admissions this calendar year, and perhaps some adjustments should be made to his current device. Potentially trying something at bedtime to prevent the morning nausea could be helpful. It is unclear if we could get granisetron approved, but that is a longer acting antiemetic that could be given atbedtime, and hopefully carry to the morning. A nighttime dose of erythromycin could be considered, but that will lose effect fairly quickly. I do not get the sense that this is anticipatory nausea/vomiting, so I do not think that anxieolytics would be helpful. Other considerations would include less commonly used antiemetics such as aprepitant or dronabinol. He does currently use cannabis, but this again does not have a distinct flavor of cannabis hyperemesis syndrome. Ultimately if his kidneys improve enough, and he can tolerate diet I do not know that sweeping changes need to be made to his program. As an outpatient he needs to have his existing team collaborate todctermine if something like a venting G with J extension for feeding/hydration would be worthwhile, or additional 2 weeks need to be made to his existing gastric pacemaker. In these cases it also is quite common that the gastroparesis starts the process, but then the cascading DKA, and metabolic derangements is actually what carries forward most of the nausea, and vomiting. He gets very fuzzy where to attack the problem. At this point if we can get some granisetron approved for bedtime we could try that, and he needs long-term follow-up as outlined above. Signed, Martinez Tariq MD, 03/20/2022, 1:10 PM Note: Portions of this chart may have been created with [employer] Voice recognition software. Occasional wrong -word or 'sound-like " substitutions may have occurred due to the inherent limitations of voice recognition software. Please read the chart carefully and recognize, using context,where these substitutions have occurred. Keri Salas MD - 03/20/2022 7:47 AM PDT Images from the original note were not included. [facility] PROGRESS NOTE Patient Name: Mauri Levine : 1985 Admit Date: 03/13/2022 Attending Physician: Christopher Ma DO PCP: Flo Peña MD Date of Service: 03/20/2022 Hospital Day: 8 HOSPITAL COURSE 36-year-old male with major depressive disorder, historically uncontrolled diabetes mellitus type 1 complicated by gastroparesis that is post gastric stimulator, nephropathy who was hospitalized for the second time in 2 months for acute renal failure after exacerbations of gastroparesis led to intractable nausea vomiting and significant prerenal injury with ATN. Upon admission for both of these episodes the patient had significant metabolic encephalopathy. Patient is improving at this time, electrolytes as well as mental status better, attempting to reintroduce small frequent meals. Previously beenliving in a trailer on his parents property and then moved into their house when he was still havingdifficulty with managing his care, but it sounds like this is no longer an option and therefore discharge planning has been engaged to attempt and help him find other living arrangements. Patient is not interested in going to facility, though his mother reports that he is not able to come back with the m as she feels incapable of helping to care for him any longer. He does have a long history of noncompliance. Nephrology consulted for acute renal failure and electrolyte disturbances . 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 Currently no indication for dialysis initiation. -Worsening due to recurrent emesis with minimal oral intake. Improved with IV fluids given. -Continue to monitor #Severe gastroparesis with history of gastric stimulator: Presenting with intractable nausea and vomiting: -Encourage small frequent meals. -Consulted accounts payable analyst for further education and assistance with meals -Due to persistent symptoms, GI consulted for consideration of GJ tube--planned for gastric emptyingstudy today to determine if gastric pacemaker is functioning. -Continue home medications, apparently intolerant of metoclopramide -Granisetron started by GI today. -GI recommending he follow up with his GI group in [place] to discuss G-J tube further. -RUQ US done for recurrent nausea and vomiting, but anticipate low-yield. #Acute metabolic encephalopathy secondary to above: Appears greatly improved. His mother is concerned about his poor judgment, but also notes she wants to maintain his independence as much as possible. #Hypertension: Persistently elevated -Treatment at the discretion of nephrology -Continue to monitor closely #Major depressive disorder: -EKG repeated 03/19 for QT prolongation noted earlier in hospital stay--QTC 460 currently -Continue Mirtazapine, Effexor, re-start Fluoxetine #Type 1 diabetes, brittle, insulin-dependent: -Continue insulin therapy--patient requesting his insulin pump be connected again, but due to continued lability, will hold off for now. -clinical unit educator consulted. -Continue to monitor closely -Restart Lantus at decreased dose of 20 units. -Increase intensity of sliding scale insulin, but will need to decrease now Lantus being started in the morning. -Patient noted to have worsening hyperglycemia and increasing anion gap. Bolused with 2 L of fluid and more intensive insulin therapy resulted in normalization of this. #Hypoglycemia: Resolved #Severe metabolic alkalosis: Resolved Gastroparesis diet Full code Heparin Dispo: Continuing to look for alternative discharge plans. Will attempt to address chronic gastroparesis symptoms as patient has had 19 hospitalizations since July of this year for this issue. SUBJECTIVE CHIEF COMPLAINT: Acute metabolic encephalopathy OVERNIGHT EVENTS: Feels well today. No nausea and vomiting thus far today. Eating. Denies any CP/dyspnea/cough. Patient notes a h/o gallstones and wonders if this is contributing to his recurrent nausea and vomiting. ROS: 10 point ROS otherwise negative unless documented above OBJECTIVE PHYSICAL EXAM: BP 142/80 | Pulse 95 | Temp (Src) 97.5 (Temporal) | Resp 14 | Ht 6' 1" (1.854 m) | Wt 154 lb 5.2 oz (70 kg) | SaO2 98% General: Chronically ill-appearing young gentleman sitting in bed in no apparent distress CV: RRR, no M/R/G, pulses in all extremities and no significant lower extremity edema Pulm: Lungs clear to auscultation bilaterally without increased work of breathing ABD: Soft, nontender, nondistended, positive bowel sounds MSK: No deformity Skin: No appreciable skin lesion or rash Neuro: ANO x3, CN-12 grossly intact, no focal deficit appreciated SCHEDULED Meds: I have personally reviewed the current medication list. insulin lispro, 0-5 Units, ac hs insulin glargine, 20 Units, daily pantoprazole, 40 mg, daily NIFEdipine, 30 mg, daily famotidine, 20 mg, q2 days heparin, 5,000 Units, q12h carvedilol, 6.25 mg, bid mirtazapine, 15 mg, bedtime venlafaxine, 225 mg, daily IVF/IV Meds: PRN Meds: promethazine IV piggyback, 6.25 mg, q6h PRN Or promethazine IV piggyback, 12.5 mg, q6h PRN promethazine, 12.5 mg, q6h PRN melatonin, 6 mg, bedtime PRN dextrose, 50 mL, PRN ondansetron (Zofran) 2 mg/mL inj 4 mg, 4 mg, q6h PRN LABS: Labs in the last 24 hours Basic Metabolic Panel Collection Time: 03/19/22 10:14 AM Result Value Ref Range Sodium 133 (L) 136 - 145 mmol/L Potassium 4.2 3.5 - 5.0 mmol/L Chloride 95 (L) 99 - 109 mmol/L CO2 19 (L) 23 - 33 mmol/L Anion Gap 19 (H) 5 - 16 ratio Creatinine 4.42 (H) 0.50 - 1.30 mg/dL BUN 36 (H) 8 - 25 mg/dL Glucose 382 (H) 65 - 99 mg/dL Calcium 9.1 8.5 - 10.2 mg/dL Estimated Glomerular Filtration Rate (eGFR) 17 (L) >=60 mL/min/1.73 m2 POC Glucose Collection Time: 03/19/22 10:17 AM Result Value Ref Range Glucose (POC) 327 (H) 65 - 99 mg/dL POC Glucose Collection Time: 03/19/22 11:51 AM Result Value Ref Range Glucose (POC) 262 (H) 65 - 99 mg/dL Basic Metabolic Panel Collection Time: 03/19/22 12:14 PM Result Value Ref Range Sodium 139 136 - 145 mmol/L Potassium 3.9 3.5 - 5.0 mmol/L Chloride 104 99 - 109 mmol/L CO2 20 (L) 23 - 33 mmol/L Anion Gap 15 5 - 16 ratio Creatinine 4.36 (H) 0.50 - 1.30 mg/dL BUN 34 (H) 8 - 25 mg/dL Glucose 262 (H) 65 - 99 mg/dL Calcium 8.5 8.5 - 10.2 mg/dL Estimated Glomerular Filtration Rate (eGFR) 17 (L) >=60 mL/min/1.73 m2 POC Glucose Collection Time: 03/19/22 5:12 PM Result Value Ref Range Glucose (POC) 128 (H) 65 - 99 mg/dL POC Glucose Collection Time: 03/19/22 8:32 PM Result Value Ref Range Glucose (POC) 167 (H) 65 - 99 mg/dL Renal Profile Collection Time: 03/20/22 5:34 AM Result Value Ref Range Sodium 135 (L) 136 - 145 mmol/L Potassium 4.0 3.5 - 5.0 mmol/L Chloride 98 (L) 99 - 109 mmol/L CO2 22 (L) 23 - 33 mmol/L Anion Gap 15 5 - 16 ratio Creatinine 4.02 (H) 0.50 - 1.30 mg/dL BUN 28 (H) 8 - 25 mg/dL Glucose 149 (H) 65 - 99 mg/dL Calcium 8.9 8.5 - 10.2 mg/dL Phosphorus 3.9 2.3 - 4.8 mg/dL Albumin 3.5 3.5 - 5.0 g/dL Estimated Glomerular Filtration Rate (eGFR) 19 (L) >=60 mL/min/1.73 m2 Magnesium Collection Time: 03/20/22 5:34 AM Result Value Ref Range Magnesium 1.9 1.7 - 2.4 mg/dL CBC w/Auto Differential Collection Time: 03/20/22 5:34 AM Result Value Ref Range WBC 8.43 4.00 - 11.00 x10E3/uL RBC 3.55 (L) 4.30 - 5.70 x10E6/uL Hemoglobin 9.9 (L) 13.7 - 16.7 g/dL Hematocrit 29.8 (L) 40.0 - 50.0 % MCV 83.9 80.0 - 100.0 fL MCH 27.9 27.0 - 34.0 pg MCHC 33.2 31.5 - 35.7 g/dL RDW 15.5 (H) 11.0 - 15.0 % Platelet Count 233 150 - 400 x10E3/uL MPV 10.7 9.4 - 12.4 fL Neutrophils %, Automated 63.2 40.0 - 80.0 % Immature Granulocytes %, Automated 0.6 0.0 - 1.0 % Lymphocytes %, Automated 21.8 15.0 - 45.0 % Monocytes %, Automated 6.8 0.0 - 12.0 % Eosinophils %, Automated 7.0 0.0 - 7.0 % Basophils %, Automated 0.6 0.0 - 2.0 % Neutrophils Abs, Automated 5.33 2.00 - 7.30 x10E3/uL Immature Granulocyte Abs, Automated 0.05 0.00 - 0.05 x10E3/uL Lymphocytes Abs, Automated 1.84 1.00 - 3.40 x10E3/uL Monocytes Abs, Automated 0.57 0.00 - 0.80 x10E3/uL Eosinophils Abs, Automated 0.59 (H) 0.00 - 0.50 x10E3/uL Basophils Abs, Automated 0.05 0.00 - 0.10 x10E3/uL nRBC %, Automated 0.0 0.0 - 1.0 /100 WBC nRBC Abs, Automated 0.00 0.00 - 0.01 x10E3/uL RADIOLOGY: I have personally reviewed today's imaging NM GASTRIC EMPTYING STUDY WITH SMALL BOWEL TRANSIT Final Result IMPRESSION: 1. Gastric emptying study within normal limits. *Gastric emptying values based on consensus recommendations for gastric emptying scintigraphy: A joint report of the [place] neurogastroenterology and motility society and the Society nuclear medicine. [email or web address]://[email or web address]/[email or web address] Additional Diagnostic Studies: Recent Results (from the past 168 hour(s)) EKG Collection Time: 03/19/22 7:17 PM Result Value Ref Range HEART RATE 98 bpm RR Interval 612 ms Atrial Rate 98 ms P-R Interval 165 ms P Duration 120 ms P Horizontal Dar[place] 31 deg P Front [place] 63 deg Q Onset 503 ms QRSD Interval 84 ms QT Interval 360 ms QTcB 460 ms QTcF 424 ms QRS Horizontal [place] -33 deg QRS Dar[place] 74 deg I-40 Horizontal [place] 95 deg I-40 Front [place] -30 deg T-40 Horizontal [place] -38 deg T-40 Front [place] 78 deg T Horizontal [place] 95 deg T Wave [place] 93 deg S-T Horizontal [place] 122 deg S-T Front [place] 116 deg Narrative - ABNORMAL ECG - Sinus rhythm Consider left ventricular hypertrophy Nonspecific T abnormalities, lateral leads Keri Salas MD 7:48 AM 03/20/2022 Oskar Monae MD - 03/20/2022 6:57 AM PDT Images from the original note were not included. Nephrology Progress Note CC: 36 year old male is seen for alexus 03/20/2022 Subjective Normal gastric emptying study. Had an episode of emesis at over 500 but since then has been doing quite well, eating and drinking and tolerating. No abdominal pain fever chills or bleeding. More alert today. 10 out of 14 reviewed, all others negative except as above OBJECTIVE: Current Facility-Administered Medications Medication insulin glargine (Lantus) 100 units/mL inj 20 Units insulin lispro (HUMALOG) 100 units/mL single dose 0-16 Units pantoprazole (Protonix) inj 40 mg promethazine (Phenergan) 6.25 mg in 0.9 % NaCl (NS) 50 mL IV piggyback Or promethazine (Phenergan) 12.5 mg in 0.9 % NaCl (NS) 50 mL IV piggyback promethazine (PHENERGAN) tablet 12.5 mg NIFEdipine (Procardia XL) tablet SR 24 hr 30 mg famotidine (PEPCID) tablet 20 mg heparin 5000 units/mL inj 5,000 Units melatonin tablet 6 mg carvedilol (Coreg) tablet 6.25 mg mirtazapine (Remeron SolTab) tablet dispersible 15 mg venlafaxine (Effexor XR) capsule SR 24 hr 225 mg dextrose 50 % IV solution 50 mL ondansetron (Zofran) 2 mg/mL inj 4 mg VITALS: Temp: [96.3 F (35.7 C)-98.4 F (36.9 C)] 97.5 F (36.4 C) Pulse: [95-100] 95 Resp: [14-16] 14 BP: (142-155)/(64-80) 142/80 Temp (24hrs), Av.5 F (36.4 C), Min:96.3 F (35.7 C), Max:98.4 F (36.9 C) In: 600 [P.O.:600] Out: 85 [Emesis:75; Blood:10] Admit Weight: 03/13/2022 : Weight: 156 lb 12 oz (71.1 kg) Today's weight: Weight: 154 lb 5.2 oz (70 kg) PHYSICAL EXAM General: No acute distress, pleasant HEENT: Normocephalic atraumatic, extraocular movements intact, sclerae anicteric, oropharynx clear, mucous membranes moist Cardiovascular: No JVD, regular without rubs or gallops Pulmonary: Clear to auscultation bilaterally, no wheeze, rhonchi, rales or accessory muscle use Abdomen: Positive bowel sounds soft, nontender, nondistended no rebound, guarding, masses Extremities: No cyanosis clubbing or edema Neuro: No myoclonus, follows commands Psychiatric: Normal affect, alert and oriented x3 CBC Recent Labs 03/20/22 0534 03/19/22 0636 03/18/22 0702 WBC 8.43 7.51 6.56 HGB 9.9* 9.9* 10.2* HCT 29.8* 29.8* 31.3* PLT 233 225 232 Renal Panel Recent Labs 03/20/22 0534 03/19/22 1214 03/19/22 1014 03/19/22 0636 03/18/22 0702 NA 135* 139 133* 129* 130* K 4.0 3.9 4.2 5.3* 5.2* CL 98* 104 95* 93* 93* CO2 22* 20* 19* 19* 19* AGAP 15 15 19* 17* 18* CREA 4.02* 4.36* 4.42* 4.70* 4.17* BUN 28* 34* 36* 35* 29* GLU 149* 262* 382* 412* 521* CA 8.9 8.5 9.1 8.8 8.6 PHOSPHORUS 3.9 -- -- 3.8 4.0 ALB 3.5 -- -- 3.4* 3.3* Magnesium Recent Labs 03/20/22 0534 03/19/22 0636 03/18/22 0702 MG 1.9 2.1 2.1 Renal Panel Recent Labs RADIOLOGY: NM GASTRIC EMPTYING STUDY WITH SMALL BOWEL TRANSIT Final Result IMPRESSION: 1. Gastric emptying study within normal limits. *Gastric emptying values based on consensus recommendations for gastric emptying scintigraphy: A joint report of the [place] neurogastroenter[employer] and motility society and the Society nuclear medicine. [email or web address] Assessment & Plan 36-year-old male with type 1 diabetes presents with diabetic gastroparesis and multiple electrolyte abnormalities due to nausea vomiting and poor p.o. intake, acute kidney injury on chronic kidney disease which is secondary to diabetic nephropathy. 1)Diabetic gastroparesis Normal gastric emptying study, defer. 2) ALEXUS Most likely secondary to prerenal hypovolemia with some component of ATN in the setting of ckd.Nonoliguric, improved status post IV fluid yesterday. No dialysis indications. Continue to follow serially. 3) CKD,stage III-IV Diabetic nephropathy suspected, mother is aware of high risk to dialysis progression Baseline serum creatinine around 1.7-2.0 Follows with in [place] 4) Hypertension, primary Blood pressures overall stable, desire to avoid hypotension at this time, no prn antihypertensives unless he is not able to keep his medicines down Continue carvedilol 6.25 mg twice daily Continue nifedipine ER 30 mg daily Hold lisinopril 5) Anemia of CKD, near goal S/p Epo, 10,000 units subcutaneous x 1 on 03/17/[address] Salas Discussed with patient and his mother, present at the bedside Oskar Monae MD, FASN Keri Salas MD - 03/19/2022 4:04 PM PDT Images from the original note were not included. [facility] PROGRESS NOTE Patient Name: Mauri Levine : 1985 Admit Date: 03/13/2022 Attending Physician: Christopher Ma DO PCP: Flo Peña MD Date of Service: 03/19/2022 Hospital Day: 7 HOSPITAL COURSE 36-year-old male with major depressive disorder, historically uncontrolled diabetes mellitus type 1 complicated by gastroparesis that is post gastric stimulator, nephropathy who was hospitalized for the second time in 2 months for acute renal failure after exacerbations of gastroparesis led to intractable nausea vomiting and significant prerenal injury with ATN. Upon admission for both of these episodes the patient had significant metabolic encephalopathy. Patient is improving at this time, electrolytes as well as mental status better, attempting to reintroduce small frequent meals. Previously beenliving in a trailer on his parents property and then moved into their house when he was still havingdifficulty with managing his care, but it sounds like this is no longer an option and therefore discharge planning has been engaged to attempt and help him find other living arrangements. Patient is not interested in going to facility, though his mother reports that he is not able to come back with the m as she feels incapable of helping to care for him any longer. He does have a long history of noncompliance. Nephrology consulted for acute renal failure and electrolyte disturbances . ASSESSMENT / PLAN ASSESSMENT/PLAN: 36-year-old gentleman with: #Acute kidney injury on chronic kidney disease stage III/IV secondary to diabetic nephropathy, gastroparesis with recurrent nausea and vomiting: Improving -Appreciate nephrology consultation recommendation currently no indication for dialysis initiation -PT/OT -Worsening due to recurrent emesis with minimal oral intake. Improved with IV fluids given today. #Severe gastroparesis with history of gastric stimulator: Presenting with intractable nausea and vomiting: -Encourage small frequent meals -Consulted accounts payable analyst for further education and assistance with meals -Due to persistent symptoms, GI consulted for consideration of GJ tube--planned for gastric emptyingstudy today to determine if gastric pacemaker is functioning. -Continue home medications, apparently intolerant of metoclopramide #Acute metabolic encephalopathy secondary to above: Appears greatly improved. His mother is concerned about his poor judgment, but also notes #Hypertension: Persistently elevated -Treatment at the discretion of nephrology -Continue to monitor closely #Major depressive disorder: -Will plan to re-start home medications once EKG is done due to evidence of QT prolongation earlier in hospital stay. -Per discussion with pharmacist, will need to consider renally dosing venlafaxine. #Type 1 diabetes, brittle, insulin-dependent: -Continue insulin therapy--patient requesting his insulin pump be connected again, but due to continued lability, will hold off for now. -clinical unit educator consulted. -Continue to monitor closely -Restart Lantus at decreased dose of 20 units. -Increase intensity of sliding scale insulin, but will need to decrease now Lantus being started in the morning. -Patient noted to have worsening hyperglycemia and increasing anion gap. Bolused with 2 L of fluid and more intensive insulin therapy resulted in normalization of this. #Hypoglycemia: Resolved #Severe metabolic alkalosis: Resolved Gastroparesis diet Full code Heparin Dispo: Continuing to look for alternative discharge plans. Will attempt to address chronic gastroparesis symptoms as patient has had 19 hospitalizations since July of this year for this issue. SUBJECTIVE CHIEF COMPLAINT: Acute metabolic encephalopathy OVERNIGHT EVENTS: Recurrent emesis this morning. Denies any CP/dyspnea/cough. [facility] Plan for Gastrografin study today. ROS: 10 point ROS otherwise negative unless documented above OBJECTIVE PHYSICAL EXAM: BP 145/64 | Pulse 97 | Temp (Src) 98.4 (Oral) | Resp 16 | Ht 6' 1" (1.854 m) | Wt 154 lb 12.2 oz (70.2 kg) | SaO2 98% General: Chronically ill-appearing young gentleman sitting in bed in no apparent distress HEENT: PERRLA, EOMI, sclera anicteric Neck: Supple CV: RRR, no M/R/G, pulses in all extremities and no significant lower extremity edema Pulm: Lungs clear to auscultation bilaterally without increased work of breathing ABD: Soft, nontender, nondistended, positive bowel sounds MSK: No deformity Skin: No appreciable skin lesion or rash Neuro: ANO x3, CN-12 grossly intact, no focal deficit appreciated SCHEDULED Meds: I have personally reviewed the current medication list. insulin glargine, 20 Units, daily insulin lispro, 0-16 Units, ac hs NIFEdipine, 30 mg, daily famotidine, 20 mg, q2 days heparin, 5,000 Units, q12h carvedilol, 6.25 mg, bid mirtazapine, 15 mg, bedtime venlafaxine, 225 mg, daily IVF/IV Meds: PRN Meds: promethazine IV piggyback, 6.25 mg, q6h PRN Or promethazine IV piggyback, 12.5 mg, q6h PRN promethazine, 12.5 mg, q6h PRN melatonin, 6 mg, bedtime PRN dextrose, 50 mL, PRN ondansetron (Zofran) 2 mg/mL inj 4 mg, 4 mg, q6h PRN LABS: Labs in the last 24 hours POC Glucose Collection Time: 03/18/22 5:19 PM Result Value Ref Range Glucose (POC) 402 (H) 65 - 99 mg/dL POC Glucose Collection Time: 03/18/22 8:21 PM Result Value Ref Range Glucose (POC) 326 (H) 65 - 99 mg/dL Renal Profile Collection Time: 03/19/22 6:36 AM Result Value Ref Range Sodium 129 (L) 136 - 145 mmol/L Potassium 5.3 (H) 3.5 - 5.0 mmol/L Chloride 93 (L) 99 - 109 mmol/L CO2 19 (L) 23 - 33 mmol/L Anion Gap 17 (H) 5 - 16 ratio Creatinine 4.70 (H) 0.50 - 1.30 mg/dL BUN 35 (H) 8 - 25 mg/dL Glucose 412 (H) 65 - 99 mg/dL Calcium 8.8 8.5 - 10.2 mg/dL Phosphorus 3.8 2.3 - 4.8 mg/dL Albumin 3.4 (L) 3.5 - 5.0 g/dL Estimated Glomerular Filtration Rate (eGFR) 16 (L) >=60 mL/min/1.73 m2 Magnesium Collection Time: 03/19/22 6:36 AM Result Value Ref Range Magnesium 2.1 1.7 - 2.4 mg/dL CBC w/Auto Differential Collection Time: 03/19/22 6:36 AM Result Value Ref Range WBC 7.51 4.00 - 11.00 x10E3/uL RBC 3.51 (L) 4.30 - 5.70 x10E6/uL Hemoglobin 9.9 (L) 13.7 - 16.7 g/dL Hematocrit 29.8 (L) 40.0 - 50.0 % MCV 84.9 80.0 - 100.0 fL MCH 28.2 27.0 - 34.0 pg MCHC 33.2 31.5 - 35.7 g/dL RDW 15.0 11.0 - 15.0 % Platelet Count 225 150 - 400 x10E3/uL MPV 10.6 9.4 - 12.4 fL Neutrophils %, Automated 60.1 40.0 - 80.0 % Immature Granulocytes %, Automated 0.4 0.0 - 1.0 % Lymphocytes %, Automated 25.3 15.0 - 45.0 % Monocytes %, Automated 6.5 0.0 - 12.0 % Eosinophils %, Automated 6.9 0.0 - 7.0 % Basophils %, Automated 0.8 0.0 - 2.0 % Neutrophils Abs, Automated 4.51 2.00 - 7.30 x10E3/uL Immature Granulocyte Abs, Automated 0.03 0.00 - 0.05 x10E3/uL Lymphocytes Abs, Automated 1.90 1.00 - 3.40 x10E3/uL Monocytes Abs, Automated 0.49 0.00 - 0.80 x10E3/uL Eosinophils Abs, Automated 0.52 (H) 0.00 - 0.50 x10E3/uL Basophils Abs, Automated 0.06 0.00 - 0.10 x10E3/uL nRBC %, Automated 0.0 0.0 - 1.0 /100 WBC nRBC Abs, Automated 0.00 0.00 - 0.01 x10E3/uL POC Glucose Collection Time: 03/19/22 7:12 AM Result Value Ref Range Glucose (POC) 438 (H) 65 - 99 mg/dL Basic Metabolic Panel Collection Time: 03/19/22 10:14 AM Result Value Ref Range Sodium 133 (L) 136 - 145 mmol/L Potassium 4.2 3.5 - 5.0 mmol/L Chloride 95 (L) 99 - 109 mmol/L CO2 19 (L) 23 - 33 mmol/L Anion Gap 19 (H) 5 - 16 ratio Creatinine 4.42 (H) 0.50 - 1.30 mg/dL BUN 36 (H) 8 - 25 mg/dL Glucose 382 (H) 65 - 99 mg/dL Calcium 9.1 8.5 - 10.2 mg/dL Estimated Glomerular Filtration Rate (eGFR) 17 (L) >=60 mL/min/1.73 m2 POC Glucose Collection Time: 03/19/22 10:17 AM Result Value Ref Range Glucose (POC) 327 (H) 65 - 99 mg/dL POC Glucose Collection Time: 03/19/22 11:51 AM Result Value Ref Range Glucose (POC) 262 (H) 65 - 99 mg/dL Basic Metabolic Panel Collection Time: 03/19/22 12:14 PM Result Value Ref Range Sodium 139 136 - 145 mmol/L Potassium 3.9 3.5 - 5.0 mmol/L Chloride 104 99 - 109 mmol/L CO2 20 (L) 23 - 33 mmol/L Anion Gap 15 5 - 16 ratio Creatinine 4.36 (H) 0.50 - 1.30 mg/dL BUN 34 (H) 8 - 25 mg/dL Glucose 262 (H) 65 - 99 mg/dL Calcium 8.5 8.5 - 10.2 mg/dL Estimated Glomerular Filtration Rate (eGFR) 17 (L) >=60 mL/min/1.73 m2 RADIOLOGY: I have personally reviewed today's imaging NM GASTRIC EMPTYING STUDY WITH SMALL BOWEL TRANSIT (Results Pending) Additional Diagnostic Studies: Recent Results (from the past 168 hour(s)) EKG Collection Time: 03/13/22 10:27 PM Result Value Ref Range HEART RATE 96 bpm RR Interval 625 ms Atrial Rate 96 ms P-R Interval 152 ms P Duration 105 ms P Horizontal [place] 20 deg P Front [place] 40 deg Q Onset 504 ms QRSD Interval 86 ms QT Interval 454 ms QTcB 574 ms QTcF 531 ms QRS Horizontal [place] -22 deg QRS [place] 64 deg I-40 Horizontal [place] 101 deg I-40 Front [place] 263 deg T-40 Horizontal [place] -32 deg T-40 Front [place] 71 deg T Horizontal [place] 49 deg T Wave [place] 85 deg S-T Horizontal [place] 97 deg S-T Front [place] 118 deg Narrative - ABNORMAL ECG - Sinus rhythm Consider left ventricular hypertrophy Prolonged QT interval When compared with ECG of 03-Jan-2022 13:45:10,lateral lead T wave abnl is resolved Keri Salas MD 4:05 PM 03/19/[address] - 03/19/2022 12:09 PM PDT Diabetes Education follow up note: Pt asleep. Spoke with mother. Insulin pump is located in a clear plastic bag in his bag of belongings. He has 2 infusion sets and cartridges and 1 dexcom sensor and transmitter. I charged his pump and placed it in "shelf mode" so it will not beep. To "wake up" his pump, it will need to be plugged into a wall outlet and about 30 seconds later it will turn on. He has a micro USB charging cord I nhis room. His pimp settings are: Midnight basal: 1.23 units per hour, 2am is 1.1 units per hour; 7am is 1.0 units per hour and 7pm is1.2 units per hour. Total daily basal is 25.96 (equal to 26 units of lantus). His correction is 40 with a target BG of 110 . This is similar to K[facility] insensitive scale but likely needs more inulin due to recent hyperglycemia. His carb ratio 1 unit for 12 grams of carb. CDE services resume on Tuesday after the holiday weekend. CDE to follow up as needed. Irma Ng RD CDE Irma Ng RD - 03/19/2022 10:48 AM PDT Diabetes Education: Pt with longstanding uncontrolled type 1 diabetes. 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 He uses sensor augmented insulin pump therapy known as Control IQ. His RX'ing provider for pump and sensor supplies (per pt) is Dr. Pittman, his PCP in [place]. If labs come back [facility], Dr. Salas may consider restarting insulin pump therapy. Pt has infusion sets and cartridges but does not have a dexcom sensor or transmitter. CDE can provide sample dexcom sensor and transmitter so pt can use control IQ software. Called pts room to see how he was feeling and his mother answered. His mother prefers pt not be woken up and dose not think this is a good time to re-start hisinsulin pump. Let Dr. Salas know of update. CDE available as needed. Oskar Monae MD - 03/19/2022 6:29 AM PDT Images from the original note were not included. Nephrology Progress Note CC: 36 year old male is seen for alexus 03/19/2022 Subjective Patient seen in the presence of his mom today. She reports emesis this morning, received Phenergan, so now he is sleeping. Planning on gastric emptying study this afternoon. Remains hyperglycemic, receiving insulin and IV fluid today. Unable to obtain due to patient condition OBJECTIVE: Current Facility-Administered Medications Medication insulin lispro (HUMALOG) 100 units/mL single dose 0-5 Units NIFEdipine (Procardia XL) tablet SR 24 hr 30 mg famotidine (PEPCID) tablet 20 mg heparin 5000 units/mL inj 5,000 Units melatonin tablet 6 mg carvedilol (Coreg) tablet 6.25 mg mirtazapine (Remeron SolTab) tablet dispersible 15 mg venlafaxine (Effexor XR) capsule SR 24 hr 225 mg dextrose 50 % IV solution 50 mL ondansetron (Zofran) 2 mg/mL inj 4 mg VITALS: Temp: [98.1 F (36.7 C)-98.8 F (37.1 C)] 98.1 F (36.7 C) Pulse: [85-95] 92 Resp: [16] 16 BP: (120-144)/(74-82) 144/74 Temp (24hrs), Av.5 F (36.9 C), Min:98.1 F (36.7 C), Max:98.8 F (37.1 C) In: 1654 [P.O.:400; I.V.:1254] Out: - Admit Weight: 03/13/2022 : Weight: 156 lb 12 oz (71.1 kg) Today's weight: 03/19/2022 : Weight: 166 lb 7.2 oz (75.5 kg) PHYSICAL EXAM General: Chronically ill, sleeping HEENT: Normocephalic atraumatic, unable to otherwise visualize cardiovascular: Lying on stomach, sleeping, unable to examine pulmonary: Clear to auscultation bilaterally, no wheeze, rhonchi, rales or accessory muscle use Abdomen: Unable to examine extremities: No cyanosis clubbing or edema Neuro: No myoclonus, sleeping Psychiatric: Not able to obtain CBC Recent Labs 03/19/22 0636 03/18/22 0702 03/17/22 0335 WBC 7.51 6.56 8.47 HGB 9.9* 10.2* 9.9* HCT 29.8* 31.3* 30.3* PLT 225 232 263 Renal Panel Recent Labs 03/19/22 1014 03/19/22 0636 03/18/22 0702 03/17/22 0335 NA 133* 129* 130* 136 K 4.2 5.3* 5.2* 4.0 CL 95* 93* 93* 98* CO2 19* 19* 19* 26 AGAP 19* 17* 18* 12 CREA 4.42* 4.70* 4.17* 4.35* BUN 36* 35* 29* 32* GLU 382* 412* 521* 220* CA 9.1 8.8 8.6 8.6 PHOSPHORUS -- 3.8 4.0 3.1 ALB -- 3.4* 3.3* 3.4* Magnesium Recent Labs 03/19/22 0636 03/18/22 0702 03/17/22 0335 MG 2.1 2.1 2.4 Renal Panel Recent Labs RADIOLOGY: NM GASTRIC EMPTYING STUDY WITH SMALL BOWEL TRANSIT (Results Pending) Assessment & Plan 36-year-old male with type 1 diabetes presents with diabetic gastroparesis and multiple electrolyte abnormalities due to nausea vomiting and poor p.o. intake, acute kidney injury on chronic kidney disease which is secondary to diabetic nephropathy. 1)Diabetic gastroparesis May need to consider G-J tube for drainage and feeding. Obtain a gastric emptying study, defer. 2) ALEXUS Most likely secondary to prerenal hypovolemia with some component of ATN in the setting of ckd.Nonoliguric, worsened this morning, but improved later this morning with IV fluid administration. No dialysis indications. Continue to follow serially. 3) CKD,stage III-IV Diabetic nephropathy suspected, mother is aware of high risk to dialysis progression Baseline serum creatinine around 1.7-2.0 Follows with in [place] 4) Hypertension, primary Blood pressures overall stable, desire to avoid hypotension at this time, no prn antihypertensives Continue carvedilol 6.25 mg twice daily Continue nifedipine ER 30 mg daily Hold lisinopril 5) Anemia of CKD, near goal S/p Epo, 10,000 units subcutaneous x 1 on 03/17/[address] Salas as well as the patient's mother High complexity patient, close monitoring warranted. Oskar Monae MD, FASN Mustapha Leonard, DO - 03/18/2022 10:36 AM PDT NEPHROLOGY PROGRESS NOTE ASSESSMENT AND PLAN: 36-year-old male with type 1 diabetes presents with diabetic gastroparesis and multiple electrolyte abnormalities due to nausea vomiting and poor p.o. intake. He also has acute kidney injury on top chronic kidney disease which is secondary to diabetic nephropathy. 1)Diabetic gastroparesis May need to consider G-J tube for drainage and feeding Continue to advance diet,frequent small amounts 2) ALEXUS Most probable prerenal hypovolemia with some component of ATN in fragile chronic kidney diseasedsetting.Nonoliguric with improving creatinine at 4.1. Continue to monitor creatinine level with serial laboratory draw. No indication for hemodialysis. Would renal dose medications for GFR 15 to30 mL/min. Check renal function panel in a.m. 3) CKD,stage III-4 Diabetic nephropathy suspected Baseline serum creatinine around 1.7-2.0 Normal kidney sizes with increased renal echogenicity on ultrasound Baseline macro albuminuria,suggestssignificantglomerulopathy Follows with in [place] 4) Hypertension, primary Blood pressureranging 130-180 systolic Would allow to run high for now, no prn antihypertensives Continue carvedilol 6.25 mg twice daily Continue nifedipine ER 30 mg daily Hold lisinopril until kidney function improved, I would be very careful to use RAAS inhibition on himfor nowgiven his propensity towards prerenal hypovolemia and acute kidney injury.This can beaddressed in the outpatient setting in the future. 5) Anemia of CKD, 10.2 S/p Epo, 10,000 units subcutaneous x 1 on 03/17/2022 CC: I saw the patient on the frye today for follow-up of acute on chronic kidney disease Reports he is having some symptoms of nausea and lack of appetite this morning. Did seem to do okay with dinner last night though I am questioning his recall. Mother is at bedside and once again expresses to me how concerned she is about risk. Inability to manage himself at home. We talked a little bit more about different treatments for diabetic gastroparesis. Also discussed diet and hydration, waysto prevent injury to the kidneys. Apparently he has been living only on top [facility] at home and reallyhas a hard time getting any p.o. intake. Also has a hard time managing his sugars and insulin pump/continuous monitor. Mother thinks that he is not cognitively capable of doing any of this. Reviewed vitals flowsheets and laboratories. We discussed the plans for dressing the diabetes and monitoring of kidney function. I performed a complete review of systems. Except where noted in the history of present illness all review of systems items were reported as negative. Physical Exam General: No acute distress, conversant Eyes: Anicteric sclerae, conjunctiva pink HENT: Mucous membranes moist, no oral lesions noted Lungs: Clear to auscultation bilaterally, normal respiratory effort CV: Regular rate and rhythm no murmurs clicks or rubs, no jugular venous distention Abdomen: Soft, non-tender; nondistended, bowel sounds present Extremities: No peripheral edema, no cyanosis Skin: Normal temperature, no rash noted on face or hands Psych: Appropriate affect, alert and oriented Vitals: 03/17/22 1700 03/17/22 2009 03/17/22 2339 03/18/22 0622 BP: (!) 178/103 (!) 148/86 131/75 130/77 BP Site: Right upper arm Pt Position for BP: Supine Pulse: 84 84 92 93 Resp: 18 16 18 18 Temp: 98.4 F (36.9 C) 98.2 F (36.8 C) 98.4 F (36.9 C) 98.4 F (36.9 C) TempSrc: Oral Temporal Temporal Oral SpO2: 100% 99% 97% 98% Weight: Height: Patient Active Problem List Diagnosis Acute renal failure (ARF) (CMS/HCC) Respiratory failure (CMS/HCC) Metabolic alkalosis Stage 3a chronic kidney disease (CMS/HCC) Hyperosmolar hyperglycemic state (HHS) (CMS/HCC) Mitral valve prolapse Nonrheumatic aortic valve insufficiency Anemia Prolonged Q-T interval on ECG Non compliance w medication regimen Sepsis (CMS/HCC) Current Facility-Administered Medications Medication Dose Route Frequency Provider Last Rate Last Admin insulin lispro (HUMALOG) 100 units/mL single dose 0-5 Units 0-5 Units Subcutaneous q6s Shoshana Christianson MD 5 Units at 03/17/22 2351 NIFEdipine (Procardia XL) tablet SR 24 hr 30 mg 30 mg Oral daily Mustapha Leonard, DO 30 mg at03/18/22 06 famotidine (PEPCID) tablet 20 mg 20 mg Oral q2 days Shoshana Christianson MD 20 mg at 03/18/22 0626 heparin 5000 units/mL inj 5,000 Units 5,000 Units Subcutaneous q12h Shoshana Christianson MD 5,000 Units at 03/17/22 214 melatonin tablet 6 mg 6 mg Oral bedtime PRN KEVIN Larios 6 mg at 03/17/222140 carvedilol (Coreg) tablet 6.25 mg 6.25 mg Oral bid Christopher Ma DO 6.25 mg at 03/18/22 06 mirtazapine (Remeron SolTab) tablet dispersible 15 mg 15 mg Oral bedtime Christopher Ma DO 15 mgat 03/17/222140 venlafaxine (Effexor XR) capsule SR 24 hr 225 mg 225 mg Oral daily Christopher Ma DO 225 mg at 03/18/22 06 dextrose 50 % IV solution 50 mL 50 mL Intravenous PRN Az Oakley DO 50 mL at 03/13/22 214 ondansetron (Zofran) 2 mg/mL inj 4 mg 4 mg Intravenous q6h PRN Az Oakley DO 4 mg at 03/18/22 0839 Laboratory and Diagnostic Data Labs in the last 24 hours POC Glucose Collection Time: 03/17/22 12:02 PM Result Value Ref Range Glucose (POC) 190 (H) 65 - 99 mg/dL POC Glucose Collection Time: 03/17/22 3:13 PM Result Value Ref Range Glucose (POC) 186 (H) 65 - 99 mg/dL POC Glucose Collection Time: 03/17/22 5:55 PM Result Value Ref Range Glucose (POC) 185 (H) 65 - 99 mg/dL POC Glucose Collection Time: 03/17/22 11:42 PM Result Value Ref Range Glucose (POC) 346 (H) 65 - 99 mg/dL POC Glucose Collection Time: 03/18/22 6:06 AM Result Value Ref Range Glucose (POC) 404 (H) 65 - 99 mg/dL Renal Profile Collection Time: 03/18/22 7:02 AM Result Value Ref Range Sodium 130 (L) 136 - 145 mmol/L Potassium 5.2 (H) 3.5 - 5.0 mmol/L Chloride 93 (L) 99 - 109 mmol/L CO2 19 (L) 23 - 33 mmol/L Anion Gap 18 (H) 5 - 16 ratio Creatinine 4.17 (H) 0.50 - 1.30 mg/dL BUN 29 (H) 8 - 25 mg/dL Glucose 521 (HH) 65 - 99 mg/dL Calcium 8.6 8.5 - 10.2 mg/dL Phosphorus 4.0 2.3 - 4.8 mg/dL Albumin 3.3 (L) 3.5 - 5.0 g/dL Estimated Glomerular Filtration Rate (eGFR) 18 (L) >=60 mL/min/1.73 m2 Magnesium Collection Time: 03/18/22 7:02 AM Result Value Ref Range Magnesium 2.1 1.7 - 2.4 mg/dL CBC w/Auto Differential Collection Time: 03/18/22 7:02 AM Result Value Ref Range WBC 6.56 4.00 - 11.00 x10E3/uL RBC 3.67 (L) 4.30 - 5.70 x10E6/uL Hemoglobin 10.2 (L) 13.7 - 16.7 g/dL Hematocrit 31.3 (L) 40.0 - 50.0 % MCV 85.3 80.0 - 100.0 fL MCH 27.8 27.0 - 34.0 pg MCHC 32.6 31.5 - 35.7 g/dL RDW 14.8 11.0 - 15.0 % Platelet Count 232 150 - 400 x10E3/uL MPV 10.8 9.4 - 12.4 fL Neutrophils %, Automated 67.8 40.0 - 80.0 % Immature Granulocytes %, Automated 0.5 0.0 - 1.0 % Lymphocytes %, Automated 19.4 15.0 - 45.0 % Monocytes %, Automated 7.3 0.0 - 12.0 % Eosinophils %, Automated 4.1 0.0 - 7.0 % Basophils %, Automated 0.9 0.0 - 2.0 % Neutrophils Abs, Automated 4.45 2.00 - 7.30 x10E3/uL Immature Granulocyte Abs, Automated 0.03 0.00 - 0.05 x10E3/uL Lymphocytes Abs, Automated 1.27 1.00 - 3.40 x10E3/uL Monocytes Abs, Automated 0.48 0.00 - 0.80 x10E3/uL Eosinophils Abs, Automated 0.27 0.00 - 0.50 x10E3/uL Basophils Abs, Automated 0.06 0.00 - 0.10 x10E3/uL nRBC %, Automated 0.0 0.0 - 1.0 /100 WBC nRBC Abs, Automated 0.00 0.00 - 0.01 x10E3/uL POC Glucose Collection Time: 03/18/22 9:04 AM Result Value Ref Range Glucose (POC) 445 (H) 65 - 99 mg/dL Available imaging results reviewed. Keri Salas MD - 03/18/2022 8:05 AM PDT Images from the original note were not included. [facility] PROGRESS NOTE Patient Name: Mauri Levine : 1985 Admit Date: 03/13/2022 Attending Physician: Christopher Ma DO PCP: Flo Peña MD Date of Service: 03/18/2022 Hospital Day: 6 HOSPITAL COURSE 36-year-old male with major depressive disorder, historically uncontrolled diabetes mellitus type 1 complicated by gastroparesis that is post gastric stimulator, nephropathy who was hospitalized for the second time in 2 months for acute renal failure after exacerbations of gastroparesis led to intractable nausea vomiting and significant prerenal injury with ATN. Upon admission for both of these episodes the patient had significant metabolic encephalopathy. Patient is improving at this time, electrolytes as well as mental status better, attempting to reintroduce small frequent meals. Previously beenliving in a trailer on his parents property and then moved into their house when he was still havingdifficulty with managing his care, but it sounds like this is no longer an option and therefore discharge planning has been engaged to attempt and help him find other living arrangements. Patient is not interested in going to facility, though his mother reports that he is not able to come back with the m as she feels incapable of helping to care for him any longer. He does have a long history of noncompliance. Nephrology consulted for acute renal failure and electrolyte disturbances ASSESSMENT / PLAN ASSESSMENT/PLAN: 36-year-old gentleman with: #Acute kidney injury on chronic kidney disease stage III/IV secondary to diabetic nephropathy, gastroparesis with recurrent nausea and vomiting: Improving -Appreciate nephrology consultation recommendation currently no indication for dialysis initiation -PT/OT #Severe gastroparesis with history of gastric stimulator: Presenting with intractable nausea and vomiting: -Encourage small frequent meals -Consulted accounts payable analyst for further education and assistance with meals -Due to persistent symptoms, GI consulted for consideration of GJ tube -Continue home medications, apparently intolerant of metoclopramide #Acute metabolic encephalopathy secondary to above: Appears greatly improved. His mother is insinuating that she feels he is incapable of making medical decisions for himself. At this point his mental status appears to be fairly clear do not see any evidence at this time that indicate he is not capable of understanding precautions of his actions though it does appear that he makes poor choices in general. She would like to pursue guardianship--suggested she follow-up without patient neuropsychiatrist. Hypertension: Persistently elevated -Treatment at the discretion of nephrology -Continue to monitor closely #Major depressive disorder: -Continue home medication #Type 1 diabetes, brittle, insulin-dependent: -Continue insulin therapy--patient requesting his insulin pump be connected again--diabetes educatorconsulted for this. -Continue to monitor closely #Hypoglycemia: Resolved #Severe metabolic alkalosis: Resolved Gastroparesis diet Full code Heparin Dispo: Continuing to look for alternative discharge plans. Will attempt to address chronic gastroparesis symptoms. SUBJECTIVE CHIEF COMPLAINT: Acute metabolic encephalopathy OVERNIGHT EVENTS: Recurrent emesis this morning. Denies any CP/dyspnea/cough. Otherwise, he has no specific concerns. Reviewed various discharge options with patient's mother today. ROS: 10 point ROS otherwise negative unless documented above OBJECTIVE PHYSICAL EXAM: BP 130/77 | Pulse 93 | Temp (Src) 98.4 (Oral) | Resp 18 | Ht 6' 1" (1.854 m) | Wt 166 lb 7.2 oz (75.5 kg) | SaO2 98% General: Chronically ill-appearing young gentleman sitting in bed in no apparent distress HEENT: PERRLA, EOMI, sclera anicteric Neck: Supple CV: RRR, no M/R/G, pulses in all extremities and no significant lower extremity edema Pulm: Lungs clear to auscultation bilaterally without increased work of breathing ABD: Soft, nontender, nondistended, positive bowel sounds MSK: No deformity Skin: No appreciable skin lesion or rash Neuro: ANO x3, CN-12 grossly intact, no focal deficit appreciated SCHEDULED Meds: I have personally reviewed the current medication list. insulin lispro, 0-5 Units, q6s NIFEdipine, 30 mg, daily famotidine, 20 mg, q2 days heparin, 5,000 Units, q12h carvedilol, 6.25 mg, bid mirtazapine, 15 mg, bedtime venlafaxine, 225 mg, daily IVF/IV Meds: PRN Meds: melatonin, 6 mg, bedtime PRN dextrose, 50 mL, PRN ondansetron (Zofran) 2 mg/mL inj 4 mg, 4 mg, q6h PRN LABS: Labs in the last 24 hours POC Glucose Collection Time: 03/17/22 9:17 AM Result Value Ref Range Glucose (POC) 248 (H) 65 - 99 mg/dL POC Glucose Collection Time: 03/17/22 12:02 PM Result Value Ref Range Glucose (POC) 190 (H) 65 - 99 mg/dL POC Glucose Collection Time: 03/17/22 3:13 PM Result Value Ref Range Glucose (POC) 186 (H) 65 - 99 mg/dL POC Glucose Collection Time: 03/17/22 5:55 PM Result Value Ref Range Glucose (POC) 185 (H) 65 - 99 mg/dL POC Glucose Collection Time: 03/17/22 11:42 PM Result Value Ref Range Glucose (POC) 346 (H) 65 - 99 mg/dL POC Glucose Collection Time: 03/18/22 6:06 AM Result Value Ref Range Glucose (POC) 404 (H) 65 - 99 mg/dL Renal Profile Collection Time: 03/18/22 7:02 AM Result Value Ref Range Sodium 130 (L) 136 - 145 mmol/L Potassium 5.2 (H) 3.5 - 5.0 mmol/L Chloride 93 (L) 99 - 109 mmol/L CO2 19 (L) 23 - 33 mmol/L Anion Gap 18 (H) 5 - 16 ratio Creatinine 4.17 (H) 0.50 - 1.30 mg/dL BUN 29 (H) 8 - 25 mg/dL Glucose 521 (HH) 65 - 99 mg/dL Calcium 8.6 8.5 - 10.2 mg/dL Phosphorus 4.0 2.3 - 4.8 mg/dL Albumin 3.3 (L) 3.5 - 5.0 g/dL Estimated Glomerular Filtration Rate (eGFR) 18 (L) >=60 mL/min/1.73 m2 Magnesium Collection Time: 03/18/22 7:02 AM Result Value Ref Range Magnesium 2.1 1.7 - 2.4 mg/dL CBC w/Auto Differential Collection Time: 03/18/22 7:02 AM Result Value Ref Range WBC 6.56 4.00 - 11.00 x10E3/uL RBC 3.67 (L) 4.30 - 5.70 x10E6/uL Hemoglobin 10.2 (L) 13.7 - 16.7 g/dL Hematocrit 31.3 (L) 40.0 - 50.0 % MCV 85.3 80.0 - 100.0 fL MCH 27.8 27.0 - 34.0 pg MCHC 32.6 31.5 - 35.7 g/dL RDW 14.8 11.0 - 15.0 % Platelet Count 232 150 - 400 x10E3/uL MPV 10.8 9.4 - 12.4 fL Neutrophils %, Automated 67.8 40.0 - 80.0 % Immature Granulocytes %, Automated 0.5 0.0 - 1.0 % Lymphocytes %, Automated 19.4 15.0 - 45.0 % Monocytes %, Automated 7.3 0.0 - 12.0 % Eosinophils %, Automated 4.1 0.0 - 7.0 % Basophils %, Automated 0.9 0.0 - 2.0 % Neutrophils Abs, Automated 4.45 2.00 - 7.30 x10E3/uL Immature Granulocyte Abs, Automated 0.03 0.00 - 0.05 x10E3/uL Lymphocytes Abs, Automated 1.27 1.00 - 3.40 x10E3/uL Monocytes Abs, Automated 0.48 0.00 - 0.80 x10E3/uL Eosinophils Abs, Automated 0.27 0.00 - 0.50 x10E3/uL Basophils Abs, Automated 0.06 0.00 - 0.10 x10E3/uL nRBC %, Automated 0.0 0.0 - 1.0 /100 WBC nRBC Abs, Automated 0.00 0.00 - 0.01 x10E3/uL RADIOLOGY: I have personally reviewed today's imaging No orders to display Additional Diagnostic Studies: Recent Results (from the past 168 hour(s)) EKG Collection Time: 03/13/22 10:27 PM Result Value Ref Range HEART RATE 96 bpm RR Interval 625 ms Atrial Rate 96 ms P-R Interval 152 ms P Duration 105 ms P Horizontal [place] 20 deg P Front [place] 40 deg Q Onset 504 ms QRSD Interval 86 ms QT Interval 454 ms QTcB 574 ms QTcF 531 ms QRS Horizontal [place] -22 deg QRS [place] 64 deg I-40 Horizontal [place] 101 deg I-40 Front [place] 263 deg T-40 Horizontal [place] -32 deg T-40 Front [place] 71 deg T Horizontal [place] 49 deg T Wave [place] 85 deg S-T Horizontal [place] 97 deg S-T Front [place] 118 deg Narrative - ABNORMAL ECG - Sinus rhythm Consider left ventricular hypertrophy Prolonged QT interval When compared with ECG of 03-Jan-2022 13:45:10,lateral lead T wave abnl is resolved Keri Salas MD 8:05 AM 03/18/2022 Shoshana Christianson MD - 03/17/2022 2:54 PM PDT Images from the original note were not included. [facility] PRO[facility] Patient Name: Mauri Levine : 1985 Admit Date: 03/13/2022 Attending Physician: Christopher Ma DO PCP: Flo Peña MD Date of Service: 03/17/2022 Hospital Day: 5 HOSPITAL COURSE 36-year-old male with major depressive disorder, historically uncontrolled diabetes mellitus type 1 complicated by gastroparesis that is post gastric stimulator, nephropathy who was hospitalized for the second time in 2 months for acute renal failure after exacerbations of gastroparesis led to intractable nausea vomiting and significant prerenal injury with ATN. Upon admission for both of these episodes the patient had significant metabolic encephalopathy. Patient is improving at this time, electrolytes as well as mental status better, attempting to reintroduce small frequent meals. Previously beenliving in a trailer on his parents property but it sounds like this is no longer an option and therefore discharge planning has been engaged to attempt and help him find other living arrangements. Patient is not interested in going to facility though his mother reports that he is not able to come backwith them as she feels incapable of helping to care for him any longer. He does have a long history of noncompliance. Nephrology consulted for acute renal failure and electrolyte disturbances ASSESSMENT / PLAN ASSESSMENT/PLAN: 36-year-old gentleman with: #Acute kidney injury on chronic kidney disease stage III/IV secondary to diabetic nephropathy: Improving -Appreciate nephrology consultation recommendation currently no indication for dialysis initiation -PT/OT #Severe gastroparesis with history of gastric stimulator: Presenting with intractable nausea and vomiting: -Encourage small frequent meals -Consulted accounts payable analyst for further education and assistance with meals -If patient continues to be incapable of tolerating appropriate hydration/nutrition could consider GJ tube -continue home medications, apparently intolerant of metoclopramide #Acute metabolic encephalopathy secondary to above: Appears greatly improved, his mother is insinuating that she feels he is incapable of making medical decisions for himself. At this point his mental status appears to be fairly clear do not see any evidence at this time that indicate he is not capable of understanding precautions of his actions though it does appear that he makes poor choices in general. She would like to pursue guardianship it is suggested she follow-up without patient neuropsychiatrist. Hypertension: Persistently elevated -Treatment at the discretion of nephrology -Continue to monitor closely #Major depressive disorder: -Continue home medication #Type 1 diabetes, brittle, insulin-dependent: -Continue insulin therapy -Continue to monitor closely #Hypoglycemia: Resolved #Severe metabolic alkalosis: Resolved Gastroparesis diet Full code Heparin SUBJECTIVE CHIEF COMPLAINT: Acute metabolic encephalopathy OVERNIGHT EVENTS: I patient is lying in hospital bed in no distress. He reports that he is feeling fairly well, has not had recurrent abdominal pain, nausea or vomiting. Patient reports that he is done a reasonable job with intake over the last 24 hours despite observation of less than 10% of breakfast consumed from today and yesterday, states he ate yesterday however this is not documented in the chart. He understands that alternative option for discharge destination will need to be explored as his mother has statedhe cannot come back with them. He admits that he has not called the adult family home whose contact number he was given yesterday by director social welfare. Patient denies fever, chills, nausea, vomiting or chest pain at this point ROS: 10 point ROS otherwise negative unless documented above OBJECTIVE PHYSICAL EXAM: BP 181/85 | Pulse 72 | Temp (Src) 98.4 (Temporal) | Resp 16 | Ht 6' 1" (1.854 m) | Wt 166 lb 7.2 oz (75.5 kg) | SaO2 99% General: Chronically ill-appearing young gentleman sitting on bed in no apparent distress HEENT: PERRLA, EOMI, sclera anicteric Neck: Supple CV: RRR, no M/R/G, pulses in all extremities and no significant lower extremity edema Pulm: Lungs clear to auscultation bilaterally without increased work of breathing ABD: Soft, nontender, nondistended, positive bowel sounds MSK: No deformity Skin: No appreciable skin lesion or rash Neuro: ANO x3, CN-12 grossly intact, no focal deficit appreciated SCHEDULED Meds: I have personally reviewed the current medication list. epoetin estefany non-ESRD, 10,000 Units, once NIFEdipine, 30 mg, daily [START ON 03/18/2022] famotidine, 20 mg, q2 days heparin, 5,000 Units, q12h carvedilol, 6.25 mg, bid mirtazapine, 15 mg, bedtime venlafaxine, 225 mg, daily insulin lispro, 0-5 Units, q3s IVF/IV Meds: dextrose 5 % and 0.9% NaCl, Last Rate: 100 mL/hr at 03/17/22 0012 PRN Meds: melatonin, 6 mg, bedtime PRN dextrose, 50 mL, PRN ondansetron (Zofran) 2 mg/mL inj 4 mg, 4 mg, q6h PRN LABS: Labs in the last 24 hours POC Glucose Collection Time: 03/16/22 3:26 PM Result Value Ref Range Glucose (POC) 285 (H) 65 - 99 mg/dL POC Glucose Collection Time: 03/16/22 6:38 PM Result Value Ref Range Glucose (POC) 183 (H) 65 - 99 mg/dL POC Glucose Collection Time: 03/16/22 8:45 PM Result Value Ref Range Glucose (POC) 240 (H) 65 - 99 mg/dL POC Glucose Collection Time: 03/17/22 12:07 AM Result Value Ref Range Glucose (POC) 239 (H) 65 - 99 mg/dL POC Glucose Collection Time: 03/17/22 3:15 AM Result Value Ref Range Glucose (POC) 195 (H) 65 - 99 mg/dL Renal Profile Collection Time: 03/17/22 3:35 AM Result Value Ref Range Sodium 136 136 - 145 mmol/L Potassium 4.0 3.5 - 5.0 mmol/L Chloride 98 (L) 99 - 109 mmol/L CO2 26 23 - 33 mmol/L Anion Gap 12 5 - 16 ratio Creatinine 4.35 (H) 0.50 - 1.30 mg/dL BUN 32 (H) 8 - 25 mg/dL Glucose 220 (H) 65 - 99 mg/dL Calcium 8.6 8.5 - 10.2 mg/dL Phosphorus 3.1 2.3 - 4.8 mg/dL Albumin 3.4 (L) 3.5 - 5.0 g/dL Estimated Glomerular Filtration Rate (eGFR) 17 (L) >=60 mL/min/1.73 m2 Magnesium Collection Time: 03/17/22 3:35 AM Result Value Ref Range Magnesium 2.4 1.7 - 2.4 mg/dL CBC w/Auto Differential Collection Time: 03/17/22 3:35 AM Result Value Ref Range WBC 8.47 4.00 - 11.00 x10E3/uL RBC 3.54 (L) 4.30 - 5.70 x10E6/uL Hemoglobin 9.9 (L) 13.7 - 16.7 g/dL Hematocrit 30.3 (L) 40.0 - 50.0 % MCV 85.6 80.0 - 100.0 fL MCH 28.0 27.0 - 34.0 pg MCHC 32.7 31.5 - 35.7 g/dL RDW 15.0 11.0 - 15.0 % Platelet Count 263 150 - 400 x10E3/uL MPV 10.9 9.4 - 12.4 fL Neutrophils %, Automated 60.4 40.0 - 80.0 % Immature Granulocytes %, Automated 0.4 0.0 - 1.0 % Lymphocytes %, Automated 26.4 15.0 - 45.0 % Monocytes %, Automated 7.0 0.0 - 12.0 % Eosinophils %, Automated 5.1 0.0 - 7.0 % Basophils %, Automated 0.7 0.0 - 2.0 % Neutrophils Abs, Automated 5.12 2.00 - 7.30 x10E3/uL Immature Granulocyte Abs, Automated 0.03 0.00 - 0.05 x10E3/uL Lymphocytes Abs, Automated 2.24 1.00 - 3.40 x10E3/uL Monocytes Abs, Automated 0.59 0.00 - 0.80 x10E3/uL Eosinophils Abs, Automated 0.43 0.00 - 0.50 x10E3/uL Basophils Abs, Automated 0.06 0.00 - 0.10 x10E3/uL nRBC %, Automated 0.0 0.0 - 1.0 /100 WBC nRBC Abs, Automated 0.00 0.00 - 0.01 x10E3/uL POC Glucose Collection Time: 03/17/22 6:21 AM Result Value Ref Range Glucose (POC) 208 (H) 65 - 99 mg/dL POC Glucose Collection Time: 03/17/22 9:17 AM Result Value Ref Range Glucose (POC) 248 (H) 65 - 99 mg/dL POC Glucose Collection Time: 03/17/22 12:02 PM Result Value Ref Range Glucose (POC) 190 (H) 65 - 99 mg/dL RADIOLOGY: I have personally reviewed today's imaging No orders to display Additional Diagnostic Studies: Recent Results (from the past 168 hour(s)) EKG Collection Time: 03/13/22 10:27 PM Result Value Ref Range HEART RATE 96 bpm RR Interval 625 ms Atrial Rate 96 ms P-R Interval 152 ms P Duration 105 ms P Horizontal [place] 20 deg P Front [place] 40 deg Q Onset 504 ms QRSD Interval 86 ms QT Interval 454 ms QTcB 574 ms QTcF 531 ms QRS Horizontal [place] -22 deg QRS [place] 64 deg I-40 Horizontal [place] 101 deg I-40 Front [place] 263 deg T-40 Horizontal [place] -32 deg T-40 Front [place] 71 deg T Horizontal [place] 49 deg T Wave [place] 85 deg S-T Horizontal [place] 97 deg S-T Front [place] 118 deg Narrative - ABNORMAL ECG - Sinus rhythm Consider left ventricular hypertrophy Prolonged QT interval When compared with ECG of 03-Jan-2022 13:45:10,lateral lead T wave abnl is resolved TIME: 38 min spent in direct patient care greater than 50% of this time was spent with counseling/coordination of care in discussion with patient/family and team members and have personally reviewed all vital signs, labs, imaging and other data including telemetry. Shoshana Connell MD 2:54 PM 03/17/2022 Mustapha Leonard, DO - 03/17/2022 12:09 PM PDT NEPHROLOGY PROGRESS NOTE ASSESSMENT AND PLAN: 36-year-old male with type 1 diabetes presents with diabetic gastroparesis and multiple electrolyte abnormalities due to nausea vomiting and poor p.o. intake. He also has acute kidney injury on top chronic kidney disease which is secondary to diabetic nephropathy. 1) Diabetic gastroparesis May need to consider G-J tube for drainage and feeding Continue to advance diet, frequent small amounts Discontinue IVF 2) ALEXUS Most probable prerenal hypovolemia with some component of ATN in fragile chronic kidney diseasedsetting.Nonoliguric with improving creatinine at 4.3. Continue to monitor creatinine level with serial laboratory draw. No indication for hemodialysis. Would renal dose medications for GFR 15 to30 mL/min. Check renal function panel in a.m. 3) CKD,stage III-4 Diabetic nephropathy suspected Baseline serum creatinine around 1.7-2.0 Normal kidney sizes with increased renal echogenicity on ultrasound Baseline macro albuminuria,suggestssignificantglomerulopathy Follows with in [place] 4) Hypertension, primary Blood pressureranging 140-200 Would allow to run high for now, no prn antihypertensives Discontinue clonidine, not appropriate retirement option for him Continue carvedilol 6.25 mg twice daily Start nifedipine ER 30 mg daily Hold lisinopril until kidney function improved, I would be very careful to use RAAS inhibition on him for now given his propensity towards prerenal hypovolemia and acute kidney injury. This can be addressed in the outpatient setting in the future. 5) Anemia of CKD, 9.9 Epo, 10,000 units subcutaneous x 1 CC: I saw the patient on the frye today for follow-up of acute on chronic kidney disease Tells me he ate his whole dinner last night and this went okay. His breakfast is relatively untouched and he is feeling some symptoms of gastroparesis this morning. No dizziness or lightheadedness. No swelling or shortness of breath. Still voiding freely. Reviewed vitals flowsheets and laboratories. Discussed with him options for GJ tube in the future if gastroparesis continues to be a problem. Also talked about follow-up for kidney disease. I performed a complete review of systems. Except where noted in the history of present illness all review of systems items were reported as negative. Physical Exam General: No acute distress, conversant Eyes: Anicteric sclerae, conjunctiva pink HENT: Mucous membranes moist, no oral lesions noted Lungs: Clear to auscultation bilaterally, normal respiratory effort CV: Regular rate and rhythm no murmurs clicks or rubs, no jugular venous distention Abdomen: Soft, non-tender; nondistended, bowel sounds present Extremities: No peripheral edema, no cyanosis Skin: Normal temperature, no rash noted on face or hands Psych: Appropriate affect, alert and oriented Vitals: 03/16/22 2322 03/17/22 0324 03/17/22 0700 03/17/22 0750 BP: (!) 149/89 (!) 172/88 (!) 207/103 (!) 164/87 BP Site: Pt Position for BP: Pulse: 84 70 96 Resp: 16 16 16 Temp: 98.6 F (37 C) 97.9 F (36.6 C) 98.4 F (36.9 C) TempSrc: Oral Oral Temporal SpO2: 100% 98% 99% Weight: Height: Patient Active Problem List Diagnosis Acute renal failure (ARF) (CMS/HCC) Respiratory failure (CMS/HCC) Metabolic alkalosis Stage 3a chronic kidney disease (CMS/HCC) Hyperosmolar hyperglycemic state (HHS) (CMS/HCC) Mitral valve prolapse Nonrheumatic aortic valve insufficiency Anemia Prolonged Q-T interval on ECG Non compliance w medication regimen Sepsis (CMS/HCC) Current Facility-Administered Medications Medication Dose Route Frequency Provider Last Rate Last Admin [START ON 03/18/2022] famotidine (PEPCID) tablet 20 mg 20 mg Oral q2 days Shoshana Christianson MD heparin 5000 units/mL inj 5,000 Units 5,000 Units Subcutaneous q12h Shoshana Christianson MD 5,000 Units at 03/17/22 0917 melatonin tablet 6 mg 6 mg Oral bedtime PRN KEVIN Larios 6 mg at 03/16/22 2319 carvedilol (Coreg) tablet 6.25 mg 6.25 mg Oral bid Christopher Ma, DO 6.25 mg at 03/17/22 0622 mirtazapine (Remeron SolTab) tablet dispersible 15 mg 15 mg Oral bedtime Christopher D Sneck, DO 15 mgat 03/16/220 venlafaxine (Effexor XR) capsule SR 24 hr 225 mg 225 mg Oral daily Christopher Ma, DO 225 mg at 03/17/22 0622 insulin lispro (HUMALOG) 100 units/mL single dose 0-5 Units 0-5 Units Subcutaneous q3s Az Adin, DO 2 Units at 03/17/22 1204 dextrose 5 % and 0.9% NaCl (D5 NS) IV solution Intravenous continuous KEVIN Larios 100 mL/hr at 03/17/22 0012 New Bag at 03/17/22 0012 dextrose 50 % IV solution 50 mL 50 mL Intravenous PRN Az Oakley, DO 50 mL at 03/13/22 2140 ondansetron (Zofran) 2 mg/mL inj 4 mg 4 mg Intravenous q6h PRN Az Oakley, DO 4 mg at 03/15/22 0400 Laboratory and Diagnostic Data Labs in the last 24 hours POC Glucose Collection Time: 03/16/22 12:29 PM Result Value Ref Range Glucose (POC) 325 (H) 65 - 99 mg/dL POC Glucose Collection Time: 03/16/22 3:26 PM Result Value Ref Range Glucose (POC) 285 (H) 65 - 99 mg/dL POC Glucose Collection Time: 03/16/22 6:38 PM Result Value Ref Range Glucose (POC) 183 (H) 65 - 99 mg/dL POC Glucose Collection Time: 03/16/22 8:45 PM Result Value Ref Range Glucose (POC) 240 (H) 65 - 99 mg/dL POC Glucose Collection Time: 03/17/22 12:07 AM Result Value Ref Range Glucose (POC) 239 (H) 65 - 99 mg/dL POC Glucose Collection Time: 03/17/22 3:15 AM Result Value Ref Range Glucose (POC) 195 (H) 65 - 99 mg/dL Renal Profile Collection Time: 03/17/22 3:35 AM Result Value Ref Range Sodium 136 136 - 145 mmol/L Potassium 4.0 3.5 - 5.0 mmol/L Chloride 98 (L) 99 - 109 mmol/L CO2 26 23 - 33 mmol/L Anion Gap 12 5 - 16 ratio Creatinine 4.35 (H) 0.50 - 1.30 mg/dL BUN 32 (H) 8 - 25 mg/dL Glucose 220 (H) 65 - 99 mg/dL Calcium 8.6 8.5 - 10.2 mg/dL Phosphorus 3.1 2.3 - 4.8 mg/dL Albumin 3.4 (L) 3.5 - 5.0 g/dL Estimated Glomerular Filtration Rate (eGFR) 17 (L) >=60 mL/min/1.73 m2 Magnesium Collection Time: 03/17/22 3:35 AM Result Value Ref Range Magnesium 2.4 1.7 - 2.4 mg/dL CBC w/Auto Differential Collection Time: 03/17/22 3:35 AM Result Value Ref Range WBC 8.47 4.00 - 11.00 x10E3/uL RBC 3.54 (L) 4.30 - 5.70 x10E6/uL Hemoglobin 9.9 (L) 13.7 - 16.7 g/dL Hematocrit 30.3 (L) 40.0 - 50.0 % MCV 85.6 80.0 - 100.0 fL MCH 28.0 27.0 - 34.0 pg MCHC 32.7 31.5 - 35.7 g/dL RDW 15.0 11.0 - 15.0 % Platelet Count 263 150 - 400 x10E3/uL MPV 10.9 9.4 - 12.4 fL Neutrophils %, Automated 60.4 40.0 - 80.0 % Immature Granulocytes %, Automated 0.4 0.0 - 1.0 % Lymphocytes %, Automated 26.4 15.0 - 45.0 % Monocytes %, Automated 7.0 0.0 - 12.0 % Eosinophils %, Automated 5.1 0.0 - 7.0 % Basophils %, Automated 0.7 0.0 - 2.0 % Neutrophils Abs, Automated 5.12 2.00 - 7.30 x10E3/uL Immature Granulocyte Abs, Automated 0.03 0.00 - 0.05 x10E3/uL Lymphocytes Abs, Automated 2.24 1.00 - 3.40 x10E3/uL Monocytes Abs, Automated 0.59 0.00 - 0.80 x10E3/uL Eosinophils Abs, Automated 0.43 0.00 - 0.50 x10E3/uL Basophils Abs, Automated 0.06 0.00 - 0.10 x10E3/uL nRBC %, Automated 0.0 0.0 - 1.0 /100 WBC nRBC Abs, Automated 0.00 0.00 - 0.01 x10E3/uL POC Glucose Collection Time: 03/17/22 6:21 AM Result Value Ref Range Glucose (POC) 208 (H) 65 - 99 mg/dL POC Glucose Collection Time: 03/17/22 9:17 AM Result Value Ref Range Glucose (POC) 248 (H) 65 - 99 mg/dL Available imaging results reviewed. Shoshana Christianson MD - 03/16/2022 2:57 PM PDT Images from the original note were not included. [facility] PROGRESS NOTE Patient Name: Mauri Levine : 1985 Admit Date: 03/13/2022 Attending Physician: Christopher Ma DO PCP: Flo Peña MD Date of Service: 03/16/2022 Hospital Day: 4 HOSPITAL COURSE 36-year-old male with major depressive disorder, historically uncontrolled diabetes mellitus type 1 complicated by gastroparesis that is post gastric stimulator, nephropathy who was hospitalized for the second time in 2 months for acute renal failure after exacerbations of gastroparesis led to intractable nausea vomiting and significant prerenal injury with ATN. Upon admission for both of these episodes the patient had significant metabolic encephalopathy. Patient is improving at this time, electrolytes as well as mental status better, attempting to reintroduce small frequent meals. Previously beenliving in a trailer on his parents property but it sounds like this is no longer an option and therefore discharge planning has been engaged to attempt and help him find other living arrangements. Patient is not interested in going to facility though his mother reports that he is not able to come backwith them as she feels incapable of helping to care for him any longer. He does have a long history of noncompliance. 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 At this point his mental status appears to be fairly clear do not see any evidence at this time that indicate he is not capable of understanding precautions of his actions though it does appear that he makes poor choices in general. She would like to pursue guardianship it is suggested she follow-up without patient neuropsychiatrist. Hypertension: -Per nephrology preference will not initiate as needed antihypertensives -Some changes been made to his antihypertensive regimen per nephrology -Continue to monitor closely #Major depressive disorder: -Continue home medication #Severe gastroparesis with history of gastric stimulator: Presenting with intractable nausea and vomiting: -Encourage small frequent meals -If patient continues to be incapable of tolerating appropriate hydration/nutrition could consider GJ tube -continue home medications, apparently intolerant of metoclopramide #Type 1 diabetes, brittle, insulin-dependent: -Continue insulin therapy -Continue to monitor closely #Hypoglycemia: Resolved #Severe metabolic alkalosis: Resolved Gastroparesis diet Full code Heparin SUBJECTIVE CHIEF COMPLAINT: Acute metabolic encephalopathy OVERNIGHT EVENTS: Is sitting up in bed, he is calm cooperative and appropriate. His mother is at bedside. He reports he is feeling better though is not able to eat much as of yet he did attempt some breakfast but only managed a couple of bites. He and his mother did have a disagreement in my presence about plan for discharge. He reports that he does not intend to go to a facility. She reports that he is not welcome tocome back to his prior living arrangement. Patient denies fever, chills, nausea, vomiting or chest pain at this point ROS: 10 point ROS otherwise negative unless documented above OBJECTIVE PHYSICAL EXAM: BP 179/87 | Pulse 92 | Temp (Src) 98.4 (Oral) | Resp 16 | Ht 6' 1" (1.854 m) | Wt 166 lb 7.2 oz (75.5 kg) | SaO2 98% General: Chronically ill-appearing young gentleman sitting on bed in no apparent distress HEENT: PERRLA, EOMI, sclera anicteric Neck: Supple CV: RRR, no M/R/G, pulses in all extremities and no significant lower extremity edema Pulm: Lungs clear to auscultation bilaterally without increased work of breathing ABD: Soft, nontender, nondistended, positive bowel sounds MSK: No deformity Skin: No appreciable skin lesion or rash Neuro: ANO x3, CN-12 grossly intact, no focal deficit appreciated SCHEDULED Meds: I have personally reviewed the current medication list. heparin, 5,000 Units, q12h carvedilol, 6.25 mg, bid famotidine, 20 mg, bid mirtazapine, 15 mg, bedtime venlafaxine, 225 mg, daily insulin lispro, 0-5 Units, q3s piperacillin-tazobactam (ZOSYN) IV piggyback, 2.25 g, q6h IVF/IV Meds: dextrose 5 % and 0.9% NaCl, Last Rate: 100 mL/hr at 03/16/22 0600 PRN Meds: dextrose, 50 mL, PRN ondansetron (Zofran) 2 mg/mL inj 4 mg, 4 mg, q6h PRN LABS: Labs in the last 24 hours POC Glucose Collection Time: 03/15/22 4:07 PM Result Value Ref Range Glucose (POC) 187 (H) 65 - 99 mg/dL POC Glucose Collection Time: 03/15/22 6:42 PM Result Value Ref Range Glucose (POC) 191 (H) 65 - 99 mg/dL POC Glucose Collection Time: 03/15/22 8:20 PM Result Value Ref Range Glucose (POC) 221 (H) 65 - 99 mg/dL POC Glucose Collection Time: 03/15/22 11:35 PM Result Value Ref Range Glucose (POC) 143 (H) 65 - 99 mg/dL POC Glucose Collection Time: 03/16/22 3:04 AM Result Value Ref Range Glucose (POC) 181 (H) 65 - 99 mg/dL Renal Profile Collection Time: 03/16/22 4:50 AM Result Value Ref Range Sodium 135 (L) 136 - 145 mmol/L Potassium 4.4 3.5 - 5.0 mmol/L Chloride 100 99 - 109 mmol/L CO2 25 23 - 33 mmol/L Anion Gap 10 5 - 16 ratio Creatinine 4.75 (H) 0.50 - 1.30 mg/dL BUN 39 (H) 8 - 25 mg/dL Glucose 215 (H) 65 - 99 mg/dL Calcium 8.4 (L) 8.5 - 10.2 mg/dL Phosphorus 3.0 2.3 - 4.8 mg/dL Albumin 2.8 (L) 3.5 - 5.0 g/dL Estimated Glomerular Filtration Rate (eGFR) 16 (L) >=60 mL/min/1.73 m2 Magnesium Collection Time: 03/16/22 4:50 AM Result Value Ref Range Magnesium 2.6 (H) 1.7 - 2.4 mg/dL CBC w/Auto Differential Collection Time: 03/16/22 4:51 AM Result Value Ref Range WBC 13.12 (H) 4.00 - 11.00 x10E3/uL RBC 3.36 (L) 4.30 - 5.70 x10E6/uL Hemoglobin 9.4 (L) 13.7 - 16.7 g/dL Hematocrit 28.8 (L) 40.0 - 50.0 % MCV 85.7 80.0 - 100.0 fL MCH 28.0 27.0 - 34.0 pg MCHC 32.6 31.5 - 35.7 g/dL RDW 15.3 (H) 11.0 - 15.0 % Platelet Count 269 150 - 400 x10E3/uL MPV 10.5 9.4 - 12.4 fL Neutrophils %, Automated 75.6 40.0 - 80.0 % Immature Granulocytes %, Automated 0.4 0.0 - 1.0 % Lymphocytes %, Automated 14.4 (L) 15.0 - 45.0 % Monocytes %, Automated 5.9 0.0 - 12.0 % Eosinophils %, Automated 3.2 0.0 - 7.0 % Basophils %, Automated 0.5 0.0 - 2.0 % Neutrophils Abs, Automated 9.92 (H) 2.00 - 7.30 x10E3/uL Immature Granulocyte Abs, Automated 0.05 0.00 - 0.05 x10E3/uL Lymphocytes Abs, Automated 1.89 1.00 - 3.40 x10E3/uL Monocytes Abs, Automated 0.78 0.00 - 0.80 x10E3/uL Eosinophils Abs, Automated 0.42 0.00 - 0.50 x10E3/uL Basophils Abs, Automated 0.06 0.00 - 0.10 x10E3/uL nRBC %, Automated 0.0 0.0 - 1.0 /100 WBC nRBC Abs, Automated 0.00 0.00 - 0.01 x10E3/uL POC Glucose Collection Time: 03/16/22 6:07 AM Result Value Ref Range Glucose (POC) 204 (H) 65 - 99 mg/dL POC Glucose Collection Time: 03/16/22 9:21 AM Result Value Ref Range Glucose (POC) 185 (H) 65 - 99 mg/dL POC Glucose Collection Time: 03/16/22 12:29 PM Result Value Ref Range Glucose (POC) 325 (H) 65 - 99 mg/dL RADIOLOGY: I have personally reviewed today's imaging No orders to display Additional Diagnostic Studies: Recent Results (from the past 168 hour(s)) EKG Collection Time: 03/13/22 10:27 PM Result Value Ref Range HEART RATE 96 bpm RR Interval 625 ms Atrial Rate 96 ms P-R Interval 152 ms P Duration 105 ms P Horizontal [place] 20 deg P Front [place] 40 deg Q Onset 504 ms QRSD Interval 86 ms QT Interval 454 ms QTcB 574 ms QTcF 531 ms QRS Horizontal [place] -22 deg QRS [place] 64 deg I-40 Horizontal [place] 101 deg I-40 Front [place] 263 deg T-40 Horizontal [place] -32 deg T-40 Front [place] 71 deg T Horizontal [place] 49 deg T Wave [place] 85 deg S-T Horizontal [place] 97 deg S-T Front [place] 118 deg Narrative - ABNORMAL ECG - Sinus rhythm Consider left ventricular hypertrophy Prolonged QT interval When compared with ECG of 03-Jan-2022 13:45:10,lateral lead T wave abnl is resolved TIME: 38 min spent in direct patient care greater than 50% of this time was spent with counseling/coordination of care in discussion with patient/family and team members and have personally reviewed all vital signs, labs, imaging and other data including telemetry. Shoshana Connell MD 2:57 PM 03/16/2022 Byron Haddad 03/16/2022 10:17 AM PDT NEPHROLOGY PROGRESS NOTE ASSESSMENT AND PLAN: 36-year-old male with type 1 diabetes presents with diabetic gastroparesis and multiple electrolyte abnormalities due to nausea vomiting and poor p.o. intake. He also has acute kidney injury on top chronic kidney disease which is secondary to diabetic nephropathy. 1) Diabetic gastroparesis May need to consider G-J tube for drainage and feeding Continue to advance diet, frequent small amounts Would continue IV fluids for now until able to take p.o. reliably 2) ALEXUS Most probable prerenal hypovolemia with some component of ATN in fragile chronic kidney diseasedsetting. Nonoliguric with stable creatinine at 5.4. Continue to monitor creatinine level with seriallaboratory draw. No indication for hemodialysis. Would renal dose medications for GFR 15 to 30 mL/min. Check renal function panel in a.m. 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 This can be addressed in the outpatient setting in the future. CC: I saw the patient on the frye today for follow-up of acute on chronic kidney disease, electrolyte abnormalities Doing a little bit better today. His not able to tolerate much p.o. intake and only had a few bites of breakfast. Continues on IV fluids. Urine output has been maintained. Mom was at bedside and we discussed his care. She remains overwhelmed and not able to care for him. Reviewed vitals flowsheets and laboratories in detail. I performed a complete review of systems. Except where noted in the history of present illness all review of systems items were reported as negative. Physical Exam General: No acute distress, conversant Eyes: Anicteric sclerae, conjunctiva pink HENT: Mucous membranes moist, no oral lesions noted Lungs: Clear to auscultation bilaterally, normal respiratory effort CV: Regular rate and rhythm no murmurs clicks or rubs, no jugular venous distention Abdomen: Soft, non-tender; nondistended, bowel sounds present Extremities: No peripheral edema, no cyanosis Skin: Normal temperature, no rash noted on face or hands Psych: Appropriate affect, alert and oriented Vitals: 03/15/22 1912 03/15/22 2329 03/16/22 0340 03/16/22 0819 BP: (!) 167/80 (!) 149/74 (!) 140/71 (!) 180/77 BP Site: Right upper arm Right upper arm Right upper arm Right upper arm Pt Position for BP: Lying left side Lying left side Lying left side Pulse: 72 78 79 68 Resp: 16 14 14 16 Temp: 98.1 F (36.7 C) 98.6 F (37 C) 98.4 F (36.9 C) 98.1 F (36.7 C) TempSrc: Temporal Oral Oral Temporal SpO2: 97% 99% 97% 97% Weight: 166 lb 7.2 oz (75.5 kg) Height: Patient Active Problem List Diagnosis Acute renal failure (ARF) (CMS/HCC) Respiratory failure (CMS/HCC) Metabolic alkalosis Stage 3a chronic kidney disease ([facility]/HCC) Hyperosmolar hyperglycemic state ([facility]) (CMS/HCC) Mitral valve prolapse Nonrheumatic aortic valve insufficiency Anemia Prolonged Q-T interval on ECG Non compliance w medication regimen Sepsis (CMS/HCC) Current Facility-Administered Medications Medication Dose Route Frequency Provider Last Rate Last Admin heparin 5000 units/mL inj 5,000 Units 5,000 Units Subcutaneous q12h Shoshana Christianson MD carvedilol (Coreg) tablet 6.25 mg 6.25 mg Oral bid Christopher Ma DO 6.25 mg at 03/16/22 0525 cloNIDine (Catapres) 0.2 MG/24HR weekly patch 1 Patch 1 Patch Transdermal weekly Christopher Ma DO 1 Patch at 03/15/22 1327 famotidine (PEPCID) tablet 20 mg 20 mg Oral bid Christopher Ma, DO 20 mg at 03/16/22 0525 lisinopril tablet 10 mg 10 mg Oral daily Christopher Vela, DO 10 mg at 03/16/22 0525 mirtazapine (Remeron SolTab) tablet dispersible 15 mg 15 mg Oral bedtime Christopher Ma, DO 15 mgat 03/15/22 2018 venlafaxine (Effexor XR) capsule SR 24 hr 225 mg 225 mg Oral daily Christopher Ma, DO 225 mg at 03/16/22 0525 insulin lispro (HUMALOG) 100 units/mL single dose 0-5 Units 0-5 Units Subcutaneous q3s Az Oakley, DO 2 Units at 03/16/22 0921 piperacillin-tazobactam (ZOSYN) 2.25 g in 0.9 % NaCl (NS) 100 mL IV piggyback 2.25 g [id number] Christopher Ma, DO 200 mL/hr at 03/16/22 0526 2.25 g at 03/16/22 0526 dextrose 5 % and 0.9% NaCl (D5 NS) IV solution Intravenous continuous KEVIN Larios 100 mL/hr at 03/16/22 0600 Rate Verify at 03/16/22 0600 dextrose 50 % IV solution 50 mL 50 mL Intravenous PRN Az Oakley, DO 50 mL at 03/13/22 2140 ondansetron (Zofran) 2 mg/mL inj 4 mg 4 mg Intravenous q6h PRN Az Oakley, DO 4 mg at 03/15/22 0400 Laboratory and Diagnostic Data Labs in the last 24 hours POC Glucose Collection Time: 03/15/22 1:22 PM Result Value Ref Range Glucose (POC) 236 (H) 65 - 99 mg/dL POC Glucose Collection Time: 03/15/22 4:07 PM Result Value Ref Range Glucose (POC) 187 (H) 65 - 99 mg/dL POC Glucose Collection Time: 03/15/22 6:42 PM Result Value Ref Range Glucose (POC) 191 (H) 65 - 99 mg/dL POC Glucose Collection Time: 03/15/22 8:20 PM Result Value Ref Range Glucose (POC) 221 (H) 65 - 99 mg/dL POC Glucose Collection Time: 03/15/22 11:35 PM Result Value Ref Range Glucose (POC) 143 (H) 65 - 99 mg/dL POC Glucose Collection Time: 03/16/22 3:04 AM Result Value Ref Range Glucose (POC) 181 (H) 65 - 99 mg/dL Renal Profile Collection Time: 03/16/22 4:50 AM Result Value Ref Range Sodium 135 (L) 136 - 145 mmol/L Potassium 4.4 3.5 - 5.0 mmol/L Chloride 100 99 - 109 mmol/L CO2 25 23 - 33 mmol/L Anion Gap 10 5 - 16 ratio Creatinine 4.75 (H) 0.50 - 1.30 mg/dL BUN 39 (H) 8 - 25 mg/dL Glucose 215 (H) 65 - 99 mg/dL Calcium 8.4 (L) 8.5 - 10.2 mg/dL Phosphorus 3.0 2.3 - 4.8 mg/dL Albumin 2.8 (L) 3.5 - 5.0 g/dL Estimated Glomerular Filtration Rate (eGFR) 16 (L) >=60 mL/min/1.73 m2 Magnesium Collection Time: 03/16/22 4:50 AM Result Value Ref Range Magnesium 2.6 (H) 1.7 - 2.4 mg/dL CBC w/Auto Differential Collection Time: 03/16/22 4:51 AM Result Value Ref Range WBC 13.12 (H) 4.00 - 11.00 x10E3/uL RBC 3.36 (L) 4.30 - 5.70 x10E6/uL Hemoglobin 9.4 (L) 13.7 - 16.7 g/dL Hematocrit 28.8 (L) 40.0 - 50.0 % MCV 85.7 80.0 - 100.0 fL MCH 28.0 27.0 - 34.0 pg MCHC 32.6 31.5 - 35.7 g/dL RDW 15.3 (H) 11.0 - 15.0 % Platelet Count 269 150 - 400 x10E3/uL MPV 10.5 9.4 - 12.4 fL Neutrophils %, Automated 75.6 40.0 - 80.0 % Immature Granulocytes %, Automated 0.4 0.0 - 1.0 % Lymphocytes %, Automated 14.4 (L) 15.0 - 45.0 % Monocytes %, Automated 5.9 0.0 - 12.0 % Eosinophils %, Automated 3.2 0.0 - 7.0 % Basophils %, Automated 0.5 0.0 - 2.0 % Neutrophils Abs, Automated 9.92 (H) 2.00 - 7.30 x10E3/uL Immature Granulocyte Abs, Automated 0.05 0.00 - 0.05 x10E3/uL Lymphocytes Abs, Automated 1.89 1.00 - 3.40 x10E3/uL Monocytes Abs, Automated 0.78 0.00 - 0.80 x10E3/uL Eosinophils Abs, Automated 0.42 0.00 - 0.50 x10E3/uL Basophils Abs, Automated 0.06 0.00 - 0.10 x10E3/uL nRBC %, Automated 0.0 0.0 - 1.0 /100 WBC nRBC Abs, Automated 0.00 0.00 - 0.01 x10E3/uL POC Glucose Collection Time: 03/16/22 6:07 AM Result Value Ref Range Glucose (POC) 204 (H) 65 - 99 mg/dL POC Glucose Collection Time: 03/16/22 9:21 AM Result Value Ref Range Glucose (POC) 185 (H) 65 - 99 mg/dL Available imaging results reviewed. Christopher Ma DO - 03/15/2022 10:56 AM PDT Images from the original note were not included. [facility] PROGRESS NOTE Patient Name: Mauri Levine : 1985 Admit Date: 03/13/2022 Attending Physician: Christopher Ma DO PCP: Flo Peña MD Date of Service: 03/15/2022 Hospital Day: 3 HOSPITAL COURSE 36-year-old male with diabetes mellitus type 1 is unable to provide any history. Records come from my discussion with the previous ER physician as well as the records. They report that he presented by EMS for altered mental status, and found him to have a lactic acidosis of 9.1 that did improve with IV fluids. His baseline creatinine is around 1.8 and it was elevated at 5.1 with low potassium. They noted right lower lobe patchy infiltrate and gave antibiotics. Glucose there was 108. He did not respond to questioning. His blood pressures on admission was 80s over 50s and then after fluid increased to 110/76. On room air his oxygen saturations were high 90s. It appears that he presented on 01/03/2022 at our facility for the same presentation with worsening nausea, vomiting, altered mentation. Known to have insulin-dependent diabetes mellitus type 1, severe gastroparesis and previous admissions for severe electrolyte abnormalities. Acute kidney injury and me tabolic alkalosis. Within first 24 hours became further altered and had to be intubated. Suspected aspiration event during vomiting during that episode. Has been transferred to our facility for possible emergent dialysis on 01/03/2022. At that point his mother reported lived in a camper in [facility] behind their house, not allowing them much insight into his medical conditions. Very poor oral intake dueto his severe gastroparesis and is commonly bedbound vomiting 5 out of 7 days most weeks. Has a gastric stimulator but did not think it was particularly helpful. He was discharged on 01/11/2022 for the diagnosis of acute renal failure, respiratory failure. Direct admission for acute metabolic encephalopathy and severe metabolic alkalosis secondary to nausea and vomiting with acute kidney injury on chronic kidney disease stage III/IV. Patient is a brittletype I insulin diabetic was initially hypoglycemic and given D50 upon arrival. Severely hypokalemic with severe height gastroparesis with a history of a gastric stimulator. He also has a history of major depressive disorder. He does have a long history of noncompliance. 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 #Major depressive disorder #Acute nausea and vomiting #Severe gastroparesis with history of gastric stimulator #Type 1 diabetes, brittle, insulin-dependent #Hypoglycemia -Nephrology consulted, appreciate their assistance the care as patient -Defer renal management to them, suspect that the metabolic encephalopathy is secondary to renal failure and with contributions from hypoglycemia -IV fluids per nephrology -Holding MDD medications due to nausea and vomiting, restarted 03/15 -Aggressive antinausea regimen, aggressive IV fluid resuscitation -Resume home gastroparesis medications -Continue insulin therapy -potassium repleted -PT/OT -restraints removed. Long discussion with mom at the bedside. She can no longer take care of him at home. Case management informed will try to find new living arrangements Cardiac diet Full code Heparin SUBJECTIVE CHIEF COMPLAINT: Acute metabolic encephalopathy OVERNIGHT EVENTS: NAEON. Off the restraints. Case discussed with mother at the bedside. Patient is very somnolent and exhausted. Very minimally reactive to review of systems any conversation. However he is much more alert and able to respond appropriately to questions. Denies fever, chills, chest pain, shortness of breath. Then falls back asleep. ROS: 10 point ROS otherwise negative unless documented above OBJECTIVE PHYSICAL EXAM: CONSTITUTIONAL: Adult chronically ill-appearing male, appears acutely ill, somnolent, lethargic, exhausted HEENT: EOMI, dry mucous membranes RESPIRATORY: Breathing at regular rate. Wheezing not audible. Clear to auscultation bilaterally CARDIOVASCULAR: Regular rate and rhythm. No edema GI/ABDOMEN: Soft, nontender, nondistended. NABS MUSCULOSKELETAL: No deformities, range of motion intact. No joint swelling or tenderness. Normal capillary refill Psych: Normal mood and affect NEUROLOGIC: Cranial nerves grossly intact, no lateralizing deficits BP 159/74 | Pulse 91 | Temp (Src) 98.2 (Axillary) | Resp 16 | Ht 6' 1" (1.854 m) | Wt 156 lb 12 oz (71.1 kg) | SaO2 95% SCHEDULED Meds: I have personally reviewed the current medication list. insulin lispro, 0-5 Units, q3s piperacillin-tazobactam (ZOSYN) IV piggyback, 2.25 g, q6h IVF/IV Meds: dextrose 5 % and 0.9% NaCl, Last Rate: 100 mL/hr at 03/14/222 PRN Meds: dextrose, 50 mL, PRN ondansetron (Zofran) 2 mg/mL inj 4 mg, 4 mg, q6h PRN LABS: Labs in the last 24 hours POC Glucose Collection Time: 03/14/22 11:54 AM Result Value Ref Range Glucose (POC) 254 (H) 65 - 99 mg/dL POC Glucose Collection Time: 03/14/22 3:24 PM Result Value Ref Range Glucose (POC) 121 (H) 65 - 99 mg/dL POC Glucose Collection Time: 03/14/22 5:59 PM Result Value Ref Range Glucose (POC) 222 (H) 65 - 99 mg/dL POC Glucose Collection Time: 03/14/22 9:05 PM Result Value Ref Range Glucose (POC) 159 (H) 65 - 99 mg/dL POC Glucose Collection Time: 03/14/22 11:56 PM Result Value Ref Range Glucose (POC) 226 (H) 65 - 99 mg/dL POC Glucose Collection Time: 03/15/22 3:00 AM Result Value Ref Range Glucose (POC) 168 (H) 65 - 99 mg/dL Renal Profile Collection Time: 03/15/22 4:47 AM Result Value Ref Range Sodium 144 136 - 145 mmol/L Potassium 4.0 3.5 - 5.0 mmol/L Chloride 97 (L) 99 - 109 mmol/L CO2 30 23 - 33 mmol/L Anion Gap 17 (H) 5 - 16 ratio Creatinine 5.47 (H) 0.50 - 1.30 mg/dL BUN 55 (H) 8 - 25 mg/dL Glucose 206 (H) 65 - 99 mg/dL Calcium 8.8 8.5 - 10.2 mg/dL Phosphorus 3.4 2.3 - 4.8 mg/dL Albumin 3.8 3.5 - 5.0 g/dL Estimated Glomerular Filtration Rate (eGFR) 13 (L) >=60 mL/min/1.73 m2 Magnesium Collection Time: 03/15/22 4:47 AM Result Value Ref Range Magnesium 3.5 (HH) 1.7 - 2.4 mg/dL CBC w/Auto Differential Collection Time: 03/15/22 4:47 AM Result Value Ref Range WBC 17.05 (H) 4.00 - 11.00 x10E3/uL RBC 3.89 (L) 4.30 - 5.70 x10E6/uL Hemoglobin 10.9 (L) 13.7 - 16.7 g/dL Hematocrit 34.4 (L) 40.0 - 50.0 % MCV 88.4 80.0 - 100.0 fL MCH 28.0 27.0 - 34.0 pg MCHC 31.7 31.5 - 35.7 g/dL RDW 15.8 (H) 11.0 - 15.0 % Platelet Count 321 150 - 400 x10E3/uL MPV 10.5 9.4 - 12.4 fL Neutrophils %, Automated 83.2 (H) 40.0 - 80.0 % Immature Granulocytes %, Automated 0.4 0.0 - 1.0 % Lymphocytes %, Automated 7.2 (L) 15.0 - 45.0 % Monocytes %, Automated 8.3 0.0 - 12.0 % Eosinophils %, Automated 0.4 0.0 - 7.0 % Basophils %, Automated 0.5 0.0 - 2.0 % Neutrophils Abs, Automated 14.20 (H) 2.00 - 7.30 x10E3/uL Immature Granulocyte Abs, Automated 0.06 (H) 0.00 - 0.05 x10E3/uL Lymphocytes Abs, Automated 1.23 1.00 - 3.40 x10E3/uL Monocytes Abs, Automated 1.41 (H) 0.00 - 0.80 x10E3/uL Eosinophils Abs, Automated 0.07 0.00 - 0.50 x10E3/uL Basophils Abs, Automated 0.08 0.00 - 0.10 x10E3/uL nRBC %, Automated 0.0 0.0 - 1.0 /100 WBC nRBC Abs, Automated 0.00 0.00 - 0.01 x10E3/uL POC Glucose Collection Time: 03/15/22 6:05 AM Result Value Ref Range Glucose (POC) 237 (H) 65 - 99 mg/dL POC Glucose Collection Time: 03/15/22 9:01 AM Result Value Ref Range Glucose (POC) 242 (H) 65 - 99 mg/dL RADIOLOGY: I have personally reviewed today's imaging No orders to display Additional Diagnostic Studies: Recent Results (from the past 168 hour(s)) EKG Collection Time: 03/13/22 10:27 PM Result Value Ref Range HEART RATE 96 bpm RR Interval 625 ms Atrial Rate 96 ms P-R Interval 152 ms P Duration 105 ms P Horizontal [place] 20 deg P Front [place] 40 deg Q Onset 504 ms QRSD Interval 86 ms QT Interval 454 ms QTcB 574 ms QTcF 531 ms QRS Horizontal [place] -22 deg QRS [place] 64 deg I-40 Horizontal [place] 101 deg I-40 Front [place] 263 deg T-40 Horizontal [place] -32 deg T-40 Front [place] 71 deg T Horizontal [place] 49 deg T Wave [place] 85 deg S-T Horizontal [place] 97 deg S-T Front [place] 118 deg Narrative - ABNORMAL ECG - Sinus rhythm Consider left ventricular hypertrophy Prolonged QT interval When compared with ECG of 03-Jan-2022 13:45:10,lateral lead T wave abnl is resolved TIME: Time spent on care, approximately, evaluating patient, reviewing chart and coordinating care: 40 minutes Christopher Ma DO 10:56 AM 03/15/2022 Mustapha Leonard, DO - 03/15/2022 6:47 AM PDT NEPHROLOGY PROGRESS NOTE ASSESSMENT AND PLAN: 36-year-old male with type 1 diabetes presents with diabetic gastroparesis and multiple electrolyte abnormalities due to nausea vomiting and poor p.o. intake. He also has acute kidney injury on top chronic kidney disease which is secondary to diabetic nephropathy. 1) Electrolyte abnormalities Resolving volume contraction alkalosis and hypochloremia secondary to vomiting I think we can go ahead and discontinue the normal saline drip Will advance to regular diet advised patient to eat small and frequent to avoid gastroparesis, IV antiemetics as needed No fluid restriction at this point but advised to drink small volumes to avoid gastroparesis symptoms. 2) ALEXUS Most probable prerenal hypovolemia with some component of ATN in fragile chronic kidney diseased setting. Nonoliguric with stable creatinine at 5.4. Continue to monitor creatinine level with serial laboratory draw. No indication for hemodialysis. Would renal dose medications for GFR 15 to 30 mL/min. Check renal function panel in a.m. We will discontinue Mcknight catheter. 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 Alert and seems back to normal mental status. Currently off restraints. Reports he was really struggling with gastroparesis for about a week or 2 prior to admission. He was taking his insulin and thinks his sugars were well controlled. Currently he is very thirsty. Denies any shortness of breath or swelling. No nausea and thinks he could try to eat. Reviewed vitals flowsheetsand laboratories. We discussed the kidney function and monitoring of kidney function, prevention of gastroparesis and antiemetics. I performed a complete review of systems. Except where noted in the history of present illness all review of systems items were reported as negative. Physical Exam General: No acute distress, conversant Eyes: Anicteric sclerae, conjunctiva pink HENT: Mucous membranes moist, no oral lesions noted Lungs: Clear to auscultation bilaterally, normal respiratory effort CV: Regular rate and rhythm no murmurs clicks or rubs, no jugular venous distention Abdomen: Soft, non-tender; nondistended, bowel sounds present Extremities: No peripheral edema, no cyanosis Skin: Normal temperature, no rash noted on face or hands Psych: Appropriate affect, alert and oriented Vitals: 03/14/22 1526 03/14/22 1900 03/14/22 2348 03/15/22 0559 BP: (!) 161/67 (!) 171/86 (!) 167/95 (!) 167/76 BP Site: Left upper arm Right upper arm Right upper arm Right upper arm Pt Position for BP: Semi March's Semi March's Semi March's Lying left side Pulse: 88 88 98 96 Resp: 18 18 18 18 Temp: 97.5 F (36.4 C) 98.1 F (36.7 C) 99 F (37.2 C) 98.8 F (37.1 C) TempSrc: Temporal Oral Oral Oral SpO2: 91% 100% 94% 96% Weight: Height: Patient Active Problem List Diagnosis Acute renal failure (ARF) (CMS/HCC) Respiratory failure (CMS/HCC) Metabolic alkalosis Stage 3a chronic kidney disease (CMS/HCC) Hyperosmolar hyperglycemic state (HHS) (CMS/HCC) Mitral valve prolapse Nonrheumatic aortic valve insufficiency Anemia Prolonged Q-T interval on ECG Non compliance w medication regimen Sepsis (CMS/HCC) Current Facility-Administered Medications Medication Dose Route Frequency Provider Last Rate Last Admin insulin lispro (HUMALOG) 100 units/mL single dose 0-5 Units 0-5 Units Subcutaneous q3s Az Adin, DO 3 Units at 03/15/22 0614 piperacillin-tazobactam (ZOSYN) 2.25 g in 0.9 % NaCl (NS) 100 mL IV piggyback 2.25 g [id number] Christopher Ma, DO 200 mL/hr at 03/15/22 0615 2.25 g at 03/15/22 0615 dextrose 5 % and 0.9% NaCl (D5 NS) IV solution Intravenous continuous Zane Morales, DOG BEHAVIORIST 100 mL/hr at 03/14/22 2202 New Bag at 03/14/22 2202 dextrose 50 % IV solution 50 mL 50 mL Intravenous PRN Az Oakley, DO 50 mL at 03/13/22 2140 ondansetron (Zofran) 2 mg/mL inj 4 mg 4 mg Intravenous q6h PRN Az Oakley, DO 4 mg at 03/15/22 0400 Laboratory and Diagnostic Data Labs in the last 24 hours POC Glucose Collection Time: 03/14/22 7:21 AM Result Value Ref Range Glucose (POC) 194 (H) 65 - 99 mg/dL POC Glucose Collection Time: 03/14/22 9:08 AM Result Value Ref Range Glucose (POC) 308 (H) 65 - 99 mg/dL POC Glucose Collection Time: 03/14/22 11:54 AM Result Value Ref Range Glucose (POC) 254 (H) 65 - 99 mg/dL POC Glucose Collection Time: 03/14/22 3:24 PM Result Value Ref Range Glucose (POC) 121 (H) 65 - 99 mg/dL POC Glucose Collection Time: 03/14/22 5:59 PM Result Value Ref Range Glucose (POC) 222 (H) 65 - 99 mg/dL POC Glucose Collection Time: 03/14/22 9:05 PM Result Value Ref Range Glucose (POC) 159 (H) 65 - 99 mg/dL POC Glucose Collection Time: 03/14/22 11:56 PM Result Value Ref Range Glucose (POC) 226 (H) 65 - 99 mg/dL POC Glucose Collection Time: 03/15/22 3:00 AM Result Value Ref Range Glucose (POC) 168 (H) 65 - 99 mg/dL Renal Profile Collection Time: 03/15/22 4:47 AM Result Value Ref Range Sodium 144 136 - 145 mmol/L Potassium 4.0 3.5 - 5.0 mmol/L Chloride 97 (L) 99 - 109 mmol/L CO2 30 23 - 33 mmol/L Anion Gap 17 (H) 5 - 16 ratio Creatinine 5.47 (H) 0.50 - 1.30 mg/dL BUN 55 (H) 8 - 25 mg/dL Glucose 206 (H) 65 - 99 mg/dL Calcium 8.8 8.5 - 10.2 mg/dL Phosphorus 3.4 2.3 - 4.8 mg/dL Albumin 3.8 3.5 - 5.0 g/dL Estimated Glomerular Filtration Rate (eGFR) 13 (L) >=60 mL/min/1.73 m2 Magnesium Collection Time: 03/15/22 4:47 AM Result Value Ref Range Magnesium 3.5 (HH) 1.7 - 2.4 mg/dL CBC w/Auto Differential Collection Time: 03/15/22 4:47 AM Result Value Ref Range WBC 17.05 (H) 4.00 - 11.00 x10E3/uL RBC 3.89 (L) 4.30 - 5.70 x10E6/uL Hemoglobin 10.9 (L) 13.7 - 16.7 g/dL Hematocrit 34.4 (L) 40.0 - 50.0 % MCV 88.4 80.0 - 100.0 fL MCH 28.0 27.0 - 34.0 pg MCHC 31.7 31.5 - 35.7 g/dL RDW 15.8 (H) 11.0 - 15.0 % Platelet Count 321 150 - 400 x10E3/uL MPV 10.5 9.4 - 12.4 fL Neutrophils %, Automated 83.2 (H) 40.0 - 80.0 % Immature Granulocytes %, Automated 0.4 0.0 - 1.0 % Lymphocytes %, Automated 7.2 (L) 15.0 - 45.0 % Monocytes %, Automated 8.3 0.0 - 12.0 % Eosinophils %, Automated 0.4 0.0 - 7.0 % Basophils %, Automated 0.5 0.0 - 2.0 % Neutrophils Abs, Automated 14.20 (H) 2.00 - 7.30 x10E3/uL Immature Granulocyte Abs, Automated 0.06 (H) 0.00 - 0.05 x10E3/uL Lymphocytes Abs, Automated 1.23 1.00 - 3.40 x10E3/uL Monocytes Abs, Automated 1.41 (H) 0.00 - 0.80 x10E3/uL Eosinophils Abs, Automated 0.07 0.00 - 0.50 x10E3/uL Basophils Abs, Automated 0.08 0.00 - 0.10 x10E3/uL nRBC %, Automated 0.0 0.0 - 1.0 /100 WBC nRBC Abs, Automated 0.00 0.00 - 0.01 x10E3/uL POC Glucose Collection Time: 03/15/22 6:05 AM Result Value Ref Range Glucose (POC) 237 (H) 65 - 99 mg/dL Available imaging results reviewed. Christopher Ma DO - 03/14/2022 12:30 PM PDT [facility] PROGRESS NOTE Patient Name: Mauri Levine : 1985 Admit Date: 03/13/2022 Attending Physician: Christopher Ma DO PCP: Flo Peña MD Date of Service: 03/14/2022 Hospital Day: 2 HOSPITAL COURSE 36-year-old male with diabetes mellitus type 1 is unable to provide any history. Records come from my discussion with the previous ER physician as well as the records. They report that he presented by EMS for altered mental status, and found him to have a lactic acidosis of 9.1 that did improve with IV fluids. His baseline creatinine is around 1.8 and it was elevated at 5.1 with low potassium. They noted right lower lobe patchy infiltrate and gave antibiotics. Glucose there was 108. He did not respond to questioning. His blood pressures on admission was 80s over 50s and then after fluid increased to 110/76. On room air his oxygen saturations were high 90s. It appears that he presented on 01/03/2022 at our facility for the same presentation with worsening nausea, vomiting, altered mentation. Known to have insulin-dependent diabetes mellitus type 1, severe gastroparesis and previous admissions for severe electrolyte abnormalities. Acute kidney injury and me tabolic alkalosis. Within first 24 hours became further altered and had to be intubated. Suspected aspiration event during vomiting during that episode. Has been transferred to our facility for possible emergent dialysis on 01/03/2022. At that point his mother reported lived in a camper in [facility] behind their house, not allowing them much insight into his medical conditions. Very poor oral intake dueto his severe gastroparesis and is commonly bedbound vomiting 5 out of 7 days most weeks. Has a gastric stimulator but did not think it was particularly helpful. He was discharged on 01/11/2022 for the diagnosis of acute renal failure, respiratory failure. Direct admission for acute metabolic encephalopathy and severe metabolic alkalosis secondary to nausea and vomiting with acute kidney injury on chronic kidney disease stage III/IV. Patient is a brittletype I insulin diabetic was initially hypoglycemic and given D50 upon arrival. Severely hypokalemic with severe height gastroparesis with a history of a gastric stimulator. He also has a history of major depressive disorder. He does have a long history of noncompliance. 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 #Major depressive disorder #Acute nausea and vomiting #Severe gastroparesis with history of gastric stimulator #Type 1 diabetes, brittle, insulin-dependent #Hypoglycemia -Nephrology consulted, appreciate their assistance the care as patient -Defer renal management to them, suspect that the metabolic encephalopathy is secondary to renal failure and with contributions from hypoglycemia -IV fluids per nephrology -Holding MDD medications due to nausea and vomiting -Aggressive antinausea regimen, aggressive IV fluid resuscitation -Resume home gastroparesis medications -Continue insulin therapy-potassium repleted -Continue D5 NS -PT/OT -Patient placed in nonviolent restraints, danger to himself pulling out lines and tubes and attempt to get out of bed and rolled out of bed onto the floor Cardiac diet Full code Heparin SUBJECTIVE CHIEF COMPLAINT: Acute metabolic encephalopathy OVERNIGHT EVENTS: Patient is actively encephalopathic and attempt to get out of the bed. No ROS was able to be obtained as the patient is completely encephalopathic and confused and unwilling to answer any review of systems questions. He is placed in restraints due to attempting to get out of bed and pulling out IVs and lines and drains and attempting to kick the staff. ROS: 10 point ROS otherwise negative unless documented above OBJECTIVE PHYSICAL EXAM: CONSTITUTIONAL: Adult chronically ill-appearing male, appears acutely ill, confused, encephalopathic HEENT: EOMI, dry mucous membranes RESPIRATORY: Breathing at regular rate. Wheezing not audible. Clear to auscultation bilaterally CARDIOVASCULAR: Regular rate and rhythm. No edema GI/ABDOMEN: Soft, nontender, nondistended. NABS MUSCULOSKELETAL: No deformities, range of motion intact. No joint swelling or tenderness. Normal capillary refill Psych: Unable to determine due to altered mental status NEUROLOGIC: Orientation status unable to determine due to mental status. Cranial nerves appear grossly intact, no obvious lateralizing deficits as patient is trying to get out of the bed BP 166/77 | Pulse 98 | Temp (Src) 98.2 (Temporal) | Resp 18 | Ht 6' 1" (1.854 m) | Wt 156 lb 12 oz (71.1 kg) | SaO2 98% SCHEDULED Meds: I have personally reviewed the current medication list. insulin lispro, 0-5 Units, q3s piperacillin-tazobactam (ZOSYN) IV piggyback, 2.25 g, q6h potassium chloride, 40 mEq, once IVF/IV Meds: 0.9% NaCl with KCl 40 mEq/L solution, Last Rate: 100 mL/hr at 03/14/22 0817 dextrose 5 % and 0.9% NaCl, Last Rate: 100 mL/hr at 03/14/22 1009 PRN Meds: dextrose, 50 mL, PRN ondansetron (Zofran) 2 mg/mL inj 4 mg, 4 mg, q6h PRN LABS: Labs in the last 24 hours Blood Gas, Venous Collection Time: 03/13/22 10:35 PM Result Value Ref Range pH, Venous 7.544 (H) 7.310 - 7.410 pCO2, Venous 58.0 (H) 41.0 - 51.0 mm/Hg pO2, Venous 30 (L) 37 - 43 mm/Hg Total Carbon Dioxide (tCO2), Venous 51.7 (H) 23.0 - 33.0 mmol/L Bicarbonate (HCO3), Venous 49.9 (H) 23.0 - 29.0 mmol/L Oxygen Saturation (SO2), Venous 50.5 (L) 70.0 - 76.0 % Base Excess (BE), Venous 22.8 (H) 0.0 - 2.0 meq/L Lactic Acid, Venous Collection Time: 03/13/22 10:36 PM Result Value Ref Range Lactic Acid, Venous 2.0 0.5 - 2.2 mmol/L Calcium, Ionized Collection Time: 03/13/22 10:36 PM Result Value Ref Range Ionized Calcium 3.62 (L) 4.75 - 5.30 mg/dL Comprehensive Metabolic Panel Collection Time: 03/13/22 10:38 PM Result Value Ref Range Sodium 136 136 - 145 mmol/L Potassium 2.9 (L) 3.5 - 5.0 mmol/L Chloride 76 (L) 99 - 109 mmol/L CO2 43 (H) 23 - 33 mmol/L Anion Gap 17 (H) 5 - 16 ratio Creatinine 5.81 (H) 0.50 - 1.30 mg/dL BUN 65 (H) 8 - 25 mg/dL Glucose 173 (H) 65 - 99 mg/dL Calcium 8.8 8.5 - 10.2 mg/dL Total Protein 7.3 6.3 - 8.0 g/dL Albumin 3.9 3.5 - 5.0 g/dL Globulin 3.4 1.8 - 3.5 g/dL Albumin/Globulin Ratio 1.1 1.0 - 2.7 ratio Total Bilirubin 0.7 0.1 - 1.5 mg/dL ALT 10 10 - 65 U/L Alk Phos 134 (H) 35 - 115 U/L AST 21 10 - 45 U/L Estimated Glomerular Filtration Rate (eGFR) 12 (L) >=60 mL/min/1.73 m2 Magnesium Collection Time: 03/13/22 10:38 PM Result Value Ref Range Magnesium 4.1 (HH) 1.7 - 2.4 mg/dL Beta Hydroxybutyrate Collection Time: 03/13/22 10:38 PM Result Value Ref Range Beta Hydroxybutyrate 0.87 (H) 0.00 - 0.29 mmol/L Prothrombin Time (PT) Collection Time: 03/13/22 10:38 PM Result Value Ref Range Protime 13.1 11.6 - 14.7 seconds INR 1.0 0.9 - 1.2 ratio Phosphorus Collection Time: 03/13/22 10:38 PM Result Value Ref Range Phosphorus 5.2 (H) 2.3 - 4.8 mg/dL Troponin T, High Sensitivity Collection Time: 03/13/22 10:38 PM Result Value Ref Range Troponin T 212 (HH) <22 ng/L Lipase Collection Time: 03/13/22 10:38 PM Result Value Ref Range Lipase 9 7 - 60 U/L Procalcitonin Collection Time: 03/13/22 10:38 PM Result Value Ref Range Procalcitonin (PCT) 0.26 (H) <0.10 ng/mL C-reactive Protein Collection Time: 03/13/22 10:38 PM Result Value Ref Range C-reactive protein 8.0 0.0 - 8.0 mg/L Urine Drug Screen Collection Time: 03/13/22 10:49 PM Result Value Ref Range Amphet/Methamphet Screen, Urine Random Negative Negative Barbiturates Screen, Urine Random Negative Negative Benzodiazepines Screen, Urine Random Negative Negative Buprenorphine Screen, Urine Random Negative Negative Cocaine Screen, Urine Random Negative Negative Methadone Screen, Urine Random Negative Negative Opiates Screen, Urine Random Negative Negative Oxycodone/Oxymorphone Screen, Urine Random Negative Negative Phencyclidine Screen, Urine Random Negative Negative THC Screen, Urine Random Positive (A) Negative Creatinine, Urine Random 45.7 None Established mg/dL Urinalysis w/Microscopic and Culture if Indicated Collection Time: 03/13/22 10:49 PM Result Value Ref Range Color Straw Straw, Yellow, Light Yellow, Dark Yellow Clarity, Urine Clear Clear Specific [place], Urine 1.010 1.001 - 1.030 pH, Ur 9.0 (H) 5.0 - 7.5 pH unit Protein, Urine 100 (A) Negative mg/dL Glucose, Ur 50 (A) Negative mg/dL Ketones, Ur Trace (A) Negative mg/dL Occult blood Small (A) Negative Bilirubin Negative Negative Leukocyte Esterase, Ur Moderate (A) Negative Nitrite, Ur Negative Negative Urobilinogen, Urine <2.0 <2.0 mg/dL RBC, Urine 2 <3.0 /HPF WBC, Ur 21 (H) <6 /HPF Squamous Epithelials, Ur <1 <=8 /HPF Bacteria Few (A) None Seen /HPF POC Blood Gas, Arterial Collection Time: 03/13/22 11:37 PM Result Value Ref Range pH, Arterial (POC) 7.62 (HH) 7.35 - 7.45 pH, Arterial (Temp Corrected) (POC) pCO2, Arterial (POC) 35 35 - 45 mmHg pCO2, Arterial (Temp Corrected) (POC) pO2, Arterial (POC) 80 70 - 90 mmHg pO2, Arterial (Temp Corrected) (POC) TCO2, Arterial (POC) 37 (H) 21 - 28 mmol/L O2 Sat, Arterial (POC) 97.6 94 - 98 % Base Excess, Arterial (POC) 14.2 (H) -2 - 2 mmol/L HCO3, Arterial (POC) 36.3 (H) 21 - 27 mmol/L Pt. Respiratory Rate (POC) Liters/Minute (POC) Mode (POC) FIO2 (POC) Peep (POC) Tidal Volume (POC) Delivery System (POC) Set Respiratory Rate (POC) Peak Inspiratory Pressure (POC) Inspiratory Time (POC) Pressure Support (POC) Patient Temp (POC) POC Glucose Collection Time: 03/14/22 2:04 AM Result Value Ref Range Glucose (POC) 467 (H) 65 - 99 mg/dL POC Glucose Collection Time: 03/14/22 3:07 AM Result Value Ref Range Glucose (POC) 414 (H) 65 - 99 mg/dL POC Glucose Collection Time: 03/14/22 4:57 AM Result Value Ref Range Glucose (POC) 206 (H) 65 - 99 mg/dL Comprehensive Metabolic Panel Collection Time: 03/14/22 5:32 AM Result Value Ref Range Sodium 137 136 - 145 mmol/L Potassium 3.5 3.5 - 5.0 mmol/L Chloride 83 (L) 99 - 109 mmol/L CO2 39 (H) 23 - 33 mmol/L Anion Gap 15 5 - 16 ratio Creatinine 5.75 (H) 0.50 - 1.30 mg/dL BUN 63 (H) 8 - 25 mg/dL Glucose 259 (H) 65 - 99 mg/dL Calcium 8.3 (L) 8.5 - 10.2 mg/dL Total Protein 6.5 6.3 - 8.0 g/dL Albumin 3.8 3.5 - 5.0 g/dL Globulin 2.7 1.8 - 3.5 g/dL Albumin/Globulin Ratio 1.4 1.0 - 2.7 ratio Total Bilirubin 0.7 0.1 - 1.5 mg/dL ALT 9 (L) 10 - 65 U/L Alk Phos 111 35 - 115 U/L AST 19 10 - 45 U/L Estimated Glomerular Filtration Rate (eGFR) 12 (L) >=60 mL/min/1.73 m2 Magnesium Collection Time: 03/14/22 5:32 AM Result Value Ref Range Magnesium 3.9 (HH) 1.7 - 2.4 mg/dL CBC Collection Time: 03/14/22 5:32 AM Result Value Ref Range WBC 17.05 (H) 4.00 - 11.00 x10E3/uL RBC 3.89 (L) 4.30 - 5.70 x10E6/uL Hemoglobin 11.0 (L) 13.7 - 16.7 g/dL Hematocrit 32.2 (L) 40.0 - 50.0 % MCV 82.8 80.0 - 100.0 fL MCH 28.3 27.0 - 34.0 pg MCHC 34.2 31.5 - 35.7 g/dL RDW 15.8 (H) 11.0 - 15.0 % Platelet Count 332 150 - 400 x10E3/uL MPV 10.3 9.4 - 12.4 fL Blood Gas, Venous Collection Time: 03/14/22 5:32 AM Result Value Ref Range pH, Venous 7.525 (H) 7.310 - 7.410 pCO2, Venous 50.8 41.0 - 51.0 mm/Hg pO2, Venous 59 (H) 37 - 43 mm/Hg Total Carbon Dioxide (tCO2), Venous 43.3 (H) 23.0 - 33.0 mmol/L Bicarbonate (HCO3), Venous 41.8 (H) 23.0 - 29.0 mmol/L Oxygen Saturation (SO2), Venous 89.6 (H) 70.0 - 76.0 % Base Excess (BE), Venous 16.4 (H) 0.0 - 2.0 meq/L POC Glucose Collection Time: 03/14/22 7:21 AM Result Value Ref Range Glucose (POC) 194 (H) 65 - 99 mg/dL POC Glucose Collection Time: 03/14/22 9:08 AM Result Value Ref Range Glucose (POC) 308 (H) 65 - 99 mg/dL POC Glucose Collection Time: 03/14/22 11:54 AM Result Value Ref Range Glucose (POC) 254 (H) 65 - 99 mg/dL RADIOLOGY: I have personally reviewed today's imaging No orders to display Additional Diagnostic Studies: Recent Results (from the past 168 hour(s)) EKG Collection Time: 03/13/22 10:27 PM Result Value Ref Range HEART RATE 96 bpm RR Interval 625 ms Atrial Rate 96 ms P-R Interval 152 ms P Duration 105 ms P Horizontal [place] 20 deg P Front [place] 40 deg Q Onset 504 ms QRSD Interval 86 ms QT Interval 454 ms QTcB 574 ms QTcF 531 ms QRS Horizontal [place] -22 deg QRS [place] 64 deg I-40 Horizontal [place] 101 deg I-40 Front [place] 263 deg T-40 Horizontal [place] -32 deg T-40 Front [place] 71 deg T Horizontal [place] 49 deg T Wave [place] 85 deg S-T Horizontal [place] 97 deg S-T Front [place] 118 deg Narrative - ABNORMAL ECG - Sinus rhythm Consider left ventricular hypertrophy Prolonged QT interval When compared with ECG of 03-Jan-2022 13:45:10,lateral lead T wave abnl is resolved TIME: Time spent on care, approximately, evaluating patient, reviewing chart and coordinating care: 45 minutes Christopher Ma DO 12:30 PM 03/14/2022 documented in this encounter H&P Notes Az Oakley DO - 03/13/2022 9:50 PM PDT Images from the original note were not included. [facility] ADMISSION HISTORY & PHYSICAL Patient Name: Mauri Levine : 1985 Admit Date: 03/13/2022 Admitting Physician: Az Oakley DO PCP: Flo Peña MD ASSESSMENT & PLAN #. Nausea and vomiting, bilious, history of severe gastroparesis, gastric stimulator. Diabetes mellitus type 1 #. #. Reported possible infiltrate at previous facility: Temperature 99. In light of his current state we will #. Lactic acidosis #. Acute kidney injury on chronic kidney disease stage III, suspected diabetic nephropathy #. Diabetes mellitus type 1, brittle, insulin-dependent. Hypoglycemia at our facility on arrival andgiven D50 #. Acute encephalopathy, likely metabolic versus other #. Severe gastroparesis, history of gastric stimulator: Was given famotidine last discharge. #. Major depressive disorder: Hold all medications at this time. It appears he had been discharged on Remeron 15 mg nightly, Effexor 75 mg, lorazepam was stopped and Prozac stopped. It appears on his current medicine list he is on Effexor 75 mg, as this 3 caps in the morning, Remeron 15 mg at bedtime,Prozac 20 mg daily. #. Previously prolonged QTc interval on EKG #. Noncompliance with medication regimen #. Hypertension: Outpatient on lisinopril 10 mg daily clonidine patch, carvedilol 6.25 twice daily they report no meds since 40s due to vomiting except for the clonidine patch. DVT Prophylaxis: Heparin CODE STATUS: DISPOSITION: Pending HISTORY / SUBJECTIVE CHIEF COMPLAINT: Confusion HISTORY OF PRESENT ILLNESS: 36-year-old male with diabetes mellitus type 1 is unable to provide any history. Records come from my discussion with the previous ER physician as well as the records. They report that he presented by EMS for altered mental status, and found him to have a lactic acidosis of 9.1 that did improve with IV fluids. His baseline creatinine is around 1.8 and it was elevated at 5.1 with low potassium. They noted right lower lobe patchy infiltrate and gave antibiotics. Glucose there was 108. He did not respond to questioning. His blood pressures on admission was 80s over 50s and then after fluid increased to 110/76. On room air his oxygen saturations were high 90s. It appears that he presented on 01/03/2022 at our facility for the same presentation with worsening nausea, vomiting, altered mentation. Known to have insulin-dependent diabetes mellitus type 1, severe gastroparesis and previous admissions for severe electrolyte abnormalities. Acute kidney injury and me tabolic alkalosis. Within first 24 hours became further altered and had to be intubated. Suspected aspiration event during vomiting during that episode. Has been transferred to our facility for possible emergent dialysis on 01/03/2022. At that point his mother reported lived in a camper in [facility] behind their house, not allowing them much insight into his medical conditions. Very poor oral intake dueto his severe gastroparesis and is commonly bedbound vomiting 5 out of 7 days most weeks. Has a gastric stimulator but did not think it was particularly helpful. He was discharged on 01/11/2022 for the diagnosis of acute renal failure, respiratory failure. Reviewed records from previous facility: Temperature 97.2 heart rate 112 blood pressure 80/54 heart rate 112 sats 93% on room air. Improved to 110/76. White blood cell count 12.3 hemoglobin 13.0 platelets 463 sodium 132 potassium 3.2 chloride 67 bicarb 37 BUN is 53 creatinine 4.7 glucose 129 alk phos 139 AST 18 ALT 9 total bilirubin 0.5. Ionized calcium 0.67 serum calcium 8.6 CRP 0.4 total protein 7.3 albumin 3.9 globulin 3.4 amylase 36 lipase 9 beta hydroxybutyrate 2.91 troponin I 0.04 prolactin 48. He is venous blood gas showed a pH 7 greater than 7.73 CO2 25 bicarb incalculable. Lactic acid had come down to 3.02. Chest x-ray was reported as normal although the provider I spoke with indicated that there was infiltrate. Temperature T-max was 99.1. REVIEW OF SYSTEMS: Complete 10-pt review of systems was checked and is negative except for pertinentpositives listed in HPI PAST MEDICAL AND SURGICAL HISTORY: Past Medical History: Diagnosis Date Anxiety Diabetic peripheral neuropathy ([facility]/HCC) Esophageal candidiasis ([facility]) Gastroparesis History of neuroleptic malignant syndrome Hyperlipidemia Hypertension Major depressive disorder Connie-Byrne tear Marijuana use, continuous Retinopathy due to secondary diabetes ([facility]) Testosterone deficiency in male Type 1 diabetes mellitus with stage 3a chronic kidney disease ([facility]) Past Surgical History: Procedure Laterality Date H/O HAND SURGERY P CORRECTION, HALLUX VALGUS W SESAMOIDECTOMY,W PROX METATARSALOTOMY, ANY METHOD Left SOCIAL HISTORY: Social History Tobacco Use Smoking status: Former Smoker Types: Cigarettes Quit date: 02/12/2011 Years since quittin.0 Smokeless tobacco: Not on file Vaping Use Vaping Use: Never used Substance Use Topics Alcohol use: Not Currently Drug use: Yes Types: Marijuana FAMILY HISTORY: Family History Adopted: Yes Problem Relation Name Age of Onset Hypertension Mother Atrial fibrillation Mother Hypertension Father Colon Cancer Maternal Grandfather Breast Cancer Sister ALLERGIES: Patients documented allergies Allergen Reactions Prochlorperazine Unknown and Agitation/Anxiety "My whole body freaks out" Per [facility] Silver Rash Iodinated Diagnostic Agents Unknown Dystonic Per [facility] Nsaids Unknown Per [facility] Metoclopramide Agitation/Anxiety Per [facility] HOME MEDS Home Medications - Last Reviewed On: 01/03/22 2870 Authorizing Provider Medication Sig Start Date Taking? Provider Historical carvedilol (COREG) 3.125 MG Tab Take 3.125 mg by mouth twice daily. 10/23/20 Provider Historical cloNIDine (CATAPRES) 0.2 MG/24HR Patch Weekly Place 1 Patch onto the skin every week. tuesday11/17/21 Provider Historical lisinopril 10 MG Tab Take 1 Tablet by mouth daily at 1100. Provider Historical ondansetron (ZOFRAN ODT) 4 MG Tablet Dispersible Take 4 mg by mouth every 8 hours as needed. NAUSEA AND VOMITING 12/09/21 DATA / OBJECTIVE BMI There is no height or weight on file to calculate BMI. Wt Readings from Last 30 Encounters: 01/10/22 154 lb 5.2 oz (70 kg) PHYSICAL EXAM: General- Resting in bed. Had episode of bilious emesis. Eyes-Anicteric. Has a conjugate gaze. Pupils are about 4 mm dilated bilaterally. Reactive to light. HEENT-head is atraumatic. Normocephalic. Difficult to assess as we cannot get him to open his mouth.Lungs-clear to auscultation bilaterally. No wheezes, crackles, or cough except with vomiting. No labored breathing. On room air. Heart-regular rate and rhythm. No murmurs. No significant edema. GI-normoactive bowel sounds. Soft. Seems to be nontender and nondistended. No masses palpable. Episode of emesis that was bilious. Old healed bilateral upper abdominal scars which could be consistent with chest tubes. Musculoskeletal-no gross deformities. No noted red, hot, or swollen joints. No calf swelling or tenderness. Skin- No cyanosis, rashes, lesions, or ulcers appreciated. Psych-no obvious hallucinations. Neuro-seems to be alert. Answers sometimes simple yes or no questions. Does follow some commands such as squeezing my hand intermittently and other times none. There are equal 5/5 bilaterally. Slow reaction times. Is moving all extremities spontaneously. There were no vitals taken for this visit. SCHEDULED Meds: I have personally reviewed the current medication list. dextrose, , IVF/IV Meds: PRN Meds: dextrose, 50 mL, PRN Allergies Patients documented allergies Allergen Reactions Prochlorperazine Unknown and Agitation/Anxiety "My whole body freaks out" Per [facility] Silver Rash Iodinated Diagnostic Agents Unknown Dystonic Per [facility] Nsaids Unknown Per [facility] Metoclopramide Agitation/Anxiety Per [facility] Laboratory Studies No results found for this or any previous visit (from the past 24 hour(s)). Lab Results Component Value Date HA1C 8.4 (H) 01/03/2022 @LABALLVALUES(TSH:5,T4:5,T3:5)@ Imaging and Other Studies No orders to display No results found. EKG: No results found for this or any previous visit (from the past 168 hour(s)). A total of 50 minutes was spend in direct critical care evaluation and management of this patient. The condition of the patient indicated a high probability of deterioration and required critical care services. My time excluded minutes spent performing separately billable procedures and time spent treating other patients simultaneously. Critical Care Management included: Chart review, discussing with participating medical team, review of vital statistics, laboratories, radiographic studies,and prior records, current and previous medications, and current and previous treatment plans/orders. Az Oakley DO 9:50 PM 03/13/2022 documented in this encounter Consult Notes María Taylor PA-C - 03/18/2022 2:24 PM PDTAssociated Order(s): O IP CONSULT AND TREAT Images from the original note were not included. Gastroenterology Consult Referring Physician: Fol Peña MD Chief Complaint: Gastroparesis History Of Present Illness: Marui Levine is a 36 year old male who we were asked to see for issues regarding significant nausea, vomiting, likely due to gastroparesis resulting in DKA/ALEXUS. The patient is very pleasant 36-year-old male who presented to the hospital with ongoing nausea and vomiting. The patient has a longstandinghistory of intractable nausea and vomiting. It sounds as though he was diagnosed at a young age (around 13) with type 1 diabetes. And since then has had some intermittent difficulty with managing his blood sugars. It sounds as though his A1c typically runs between 8 and 10, his blood sugar today measured around 500. He has what is thought to be a prerenal ALEXUS, likely due to underlying diabetic nephropathy. He also has a history of diabetic retinopathy, and significant peripheral neuropathy. The patient was followed by the [facility] in [place], before he moved to [place] to be closerto his family last year. Records from the [facility] indicate that the patient has some difficulty with compliance in regards to his diabetes medication, and managing his blood sugars adequately. He had a gastric pacemaker placed in January 2020, but continues to have issues with what is assumed to be gastroparesis. Patient notes that when he had the gastric pacemaker placed, he had some improvement in his symptoms in regards to eating. He says he was not vomiting up old food quite as frequently, but was still having some difficulty with intermittent nausea and vomiting. He says now he will have 3-4 episodes of significant vomiting per week. Sometimes it is characterized by food that heate the morning before, which gives strong suspicion that he likely is having ongoing issues with significant gastroparesis that is not well managed by his gastric pacemaker. He says that he underwent an upper endoscopy following the placement of his gastric pacemaker, but does not know the results ofthat endoscopy, and it is not available in his chart here. Unclear as to whether or not he was ever diagnosed with gastric outlet obstruction, or pyloric channel narrowing. His most recent gastric empty ing study was done prior to his gastric pacemaker placement. He says that he continues to have intermittent nausea and vomiting while in the hospital, but has had some improvement. His creatinine is elevated at 4.5, as noted above, his blood sugars still quite elevated, and his potassium level is elevated at 5.4. He denies any fevers, aches or chills, he denies any abdominal pain associated with cramping. He says that he does get some abdominal discomfort but associates this with soreness after prolific vomiting episodes. He denies any hematemesis, or coffee-ground emesis. He says he moves his bowels without complication and notes that he is not noticed any blood in his stools. He does smoke cannabis, but says that he consumes it maybe once a week. He otherwise denies any other significant symptoms. History: Past Medical History: Diagnosis Date Anxiety Diabetic peripheral neuropathy (CMS/HCC) Esophageal candidiasis (CMS/HCC) Gastroparesis History of neuroleptic malignant syndrome Hyperlipidemia Hypertension Major depressive disorder Connie-Byrne tear Marijuana use, continuous Retinopathy due to secondary diabetes ([facility]/HCC) Testosterone deficiency in male Type 1 diabetes mellitus with stage 3a chronic kidney disease ([facility]/HCC) Patient Active Problem List Diagnosis Acute renal failure (ARF) (CMS/HCC) Respiratory failure (CMS/HCC) Metabolic alkalosis Stage 3a chronic kidney disease (CMS/HCC) Hyperosmolar hyperglycemic state (HHS) (CMS/HCC) Mitral valve prolapse Nonrheumatic aortic valve insufficiency Anemia Prolonged Q-T interval on ECG Non compliance w medication regimen Sepsis (CMS/HCC) Past Surgical History: Procedure Laterality Date H/O HAND SURGERY P CORRECTION, HALLUX VALGUS W SESAMOIDECTOMY,W PROX METATARSALOTOMY, ANY METHOD Left Current Facility-Administered Medications Medication Dose Route Frequency Provider Last Rate Last Admin insulin lispro (HUMALOG) 100 units/mL single dose 0-5 Units 0-5 Units Subcutaneous q6s Shoshana Christianson MD 5 Units at 03/18/22 1329 NIFEdipine (Procardia XL) tablet SR 24 hr 30 mg 30 mg Oral daily Mustapha Leonard, DO 30 mg at03/18/22 0626 famotidine (PEPCID) tablet 20 mg 20 mg Oral q2 days Shoshana Christianson MD 20 mg at 03/18/22 0626 heparin 5000 units/mL inj 5,000 Units 5,000 Units Subcutaneous q12h Shoshana Christianson MD 5,000 Units at 03/18/22 1330 melatonin tablet 6 mg 6 mg Oral bedtime PRN KEVIN Larios 6 mg at 03/17/22 214 carvedilol (Coreg) tablet 6.25 mg 6.25 mg Oral bid Christopher Ma DO 6.25 mg at 03/18/22 0626 mirtazapine (Remeron SolTab) tablet dispersible 15 mg 15 mg Oral bedtime Christopher Ma DO 15 mgat 03/17/222140 venlafaxine (Effexor XR) capsule SR 24 hr 225 mg 225 mg Oral daily Christopher Ma DO 225 mg at 03/18/22 0626 dextrose 50 % IV solution 50 mL 50 mL Intravenous PRN Az Oakley DO 50 mL at 03/13/22 2140 ondansetron (Zofran) 2 mg/mL inj 4 mg 4 mg Intravenous q6h PRN Az Oakley DO 4 mg at 03/18/22 0839 Patients documented allergies Allergen Reactions Prochlorperazine Unknown and Agitation/Anxiety "My whole body freaks out" Per [facility] Silver Rash Silver Nitrate Rash Other reaction(s): dystonic Iodinated Diagnostic Agents Unknown Dystonic Per [facility] Nsaids Unknown Per [facility] Metoclopramide Agitation/Anxiety Per [facility] Other reaction(s): Agitated Family History Adopted: Yes Problem Relation Name Age of Onset Hypertension Mother Atrial fibrillation Mother Hypertension Father Colon Cancer Maternal Grandfather Breast Cancer Sister Social History: Social History Tobacco Use Smoking status: Former Smoker Types: Cigarettes Quit date: 02/12/2011 Years since quittin.1 Smokeless tobacco: Never Used Vaping Use Vaping Use: Never used Substance Use Topics Alcohol use: Not Currently Drug use: Yes Types: Marijuana ROS Review of Systems Constitutional: Negative for chills and fever. HENT: Negative for ear pain and sore throat. Eyes: Negative for pain and visual disturbance. Respiratory: Negative for cough and shortness of breath. Cardiovascular: Negative for chest pain and palpitations. Gastrointestinal: Positive for nausea and vomiting. Negative for abdominal pain. Genitourinary: Negative for dysuria and hematuria. Musculoskeletal: Negative for arthralgias and back pain. Skin: Negative for color change and rash. Neurological: Negative for seizures and syncope. All other systems reviewed and are negative. Vitals: Vitals: 03/18/22 1102 BP: 137/75 Pulse: 87 Resp: 16 Temp: 98.8 F (37.1 C) Weight: Height: Height/Weight: Vitals: 03/14/22 1200 03/16/22 0340 Weight: 166 lb 7.2 oz (75.5 kg) Height: 6' 1" (1.854 m) PHYSICAL EXAM Physical Exam Vitals and nursing note reviewed. Constitutional: Appearance: He is well-developed. HENT: Head: Normocephalic and atraumatic. Eyes: Conjunctiva/sclera: Conjunctivae normal. Cardiovascular: Rate and Rhythm: Normal rate and regular rhythm. Heart sounds: No murmur heard. Pulmonary: Effort: Pulmonary effort is normal. No respiratory distress. Breath sounds: Normal breath sounds. Abdominal: Palpations: Abdomen is soft. Tenderness: There is no abdominal tenderness. Musculoskeletal: Cervical back: Neck supple. Skin: General: Skin is warm and dry. Neurological: Mental Status: He is alert. Labs: Hematocrit (%) Date Value 03/18/2022 31.3 (L) Hemoglobin (g/dL) Date Value 03/18/2022 10.2 (L) WBC (x10E3/uL) Date Value 03/18/2022 6.56 Platelet Count (x10E3/uL) Date Value 03/18/2022 232 Potassium (mmol/L) Date Value 03/18/2022 5.2 (H) Creatinine (mg/dL) Date Value 03/18/2022 4.17 (H) INR (ratio) Date Value 03/13/2022 1.0 Protime (seconds) Date Value 03/13/2022 13.1 Total Bilirubin (mg/dL) Date Value 03/14/2022 0.7 AST (U/L) Date Value 03/14/2022 19 ALT (U/L) Date Value 03/14/2022 9 (L) Imaging: No new imaging Assessment: 1. Type 1 diabetes with poor control 2. Significant gastroparesis 3. Significant peripheral neuropathy 4. Acute kidney injury, improving Plan: 1. Our plan was to proceed with gastric emptying study today, however the service was quite busy,and I received a phone call from nuclear medicine noting they will have to do it tomorrow. For the time being, continue on the patient's antiemetic medications, fluid rehydration, and advancing his diet as tolerated he needs to eat small frequent meals, that are low in fat and fiber. 2. Once we have accurate information from his gastric emptying study, further recommendations canbe made, question whether or not placement of a GJ tube would be appropriate for nutritional purposes, encourage regulation of the patient's blood sugar. She noted that it seems that his nausea and vomiting does better if his blood sugar is well controlled. We will continue to follow, and anticipate further information tomorrow. Time spent with patient which includes discussing with staff/providers, reviewing images/labs and counselling/coordinating care: 60 minutes was spent with the patient, over 50% of which was spent developing a treatment plan and counseling the patient. María Taylor PA-C, Gastroenterology Associated attestation - Javi Aguilar MD - 03/18/2022 7:11 PM PDT I personally reviewed the chart, obtained the history and examined the patient. I attest to the accuracy of the above history, physical, data and assessment. High complexit case of TI DM with gastrointestinal complications culminating in gastric pacer. Definitive treatment plans must be deferred until assessment of degree or gastroparesis present at this time Await GES and EGD. Otherwise continue present management as you are doing. Dr. Tariq to assume GI service in [place]. Javi Aguilar MD FACP [facility] Gastroenterology Mustapha Martinez Leonard, DO - 03/14/2022 9:25 AM PDT NEPHROLOGY CONSULTATION NOTE ASSESSMENT AND PLAN: 36-year-old male with type 1 diabetes presents with diabetic gastroparesis and multiple electrolyte abnormalities due to nausea vomiting and poor p.o. intake. He also has acute kidney injury on top chronic kidney disease which is secondary to diabetic nephropathy. 1) Electrolyte abnormalities Severe metabolic alkalosis which is secondary to nausea vomiting and poor p.o. intake. This leads tohydrochloric acid loss from the stomach, up regulation of the [id number] system which perpetuates the alkalosis by stimulating the generation of bicarbonate in the distal nephron andpromoting the excretion of proton in exchange for sodium (aldosterone effect on DCT/CCD). This is typically corrected by IV fluid resuscitation to manage the hypovolemia. Sodium chloride is a good IV solution for this problem so that the chloride deficit can also be taken care of. He currently is on normal saline at 100 mL/h after several boluses which is appropriate. Alkalosis is gradually improving, high urine pH suggest that we are now turning off the aldosterone in the kidney is allowed to excrete bicarbonate in the urine in exchange for chloride. Hypochloremia also gradually improving. Likely total body potassium down also due to effects of aldosterone and renal potassium excretion along withpoor p.o. intake however this may be balanced by poor GFR and lower potassium excretion; expect potassium to increase as potassium is shifted with correction of the alkalosis. He is currently [id number] mill equivalents of potassium chloride per liter of normal saline. We will also order an additional 40 mEq of potassium chloride IV x1. 2) ALEXUS Most probable prerenal hypovolemia with some component of ATN in fragile chronic kidney diseased setting. Continue to monitor creatinine level with serial laboratory draw. No indication for hemodialysis. Would renal dose medications for GFR 15 to 30 mL/min. Check renal function panel in a.m. 3) CKD, stage III-4 Diabetic nephropathy suspected Baseline serum creatinine around 1.7-2.0 Normal kidney sizes with increased renal echogenicity on ultrasound Baseline macro albuminuria,suggestssignificant glomerulopathy Follows with in [place] Reason for consultation: ALEXUS on CKD, electrolyte abnormalities Consult requested by: Dr. Oakley History of present illness 36-year-old male who I am familiar with from a recent previous admission to the intensive care unit here at [facility]. He has a history of type 1 diabetes mellitus and underlying psychiatric problems with difficulty with compliance/understanding of medical problems and regimens to treat them. Suffers from chronic anxiety. Also has severe diabetic gastroparesis and often will present with abnormalities in electrolytes related to persistent nausea vomiting poor p.o. intake and diabetic ketoacidosis. He presented to the hospital in [place] yesterday with the same. Transferred here for concern about worsening kidney function. On admission to the hospital in December he presented with similar findings with serum creatinine which was up in the 4 range. With IV fluid resuscitation and electrolyte management we were able to improvehis serum creatinine to 1.3 upon discharge. He has been maintaining urine output and he has a Mcknight catheter in place currently which is draining clear yellow urine. At the time my review the patient is combative and altered, and unable to get any meaningful interaction with him. He currently is in four-point restraints. He has been receiving IV fluids overnight. Ireviewed his vitals flowsheets and labs and discussed his care with the team. Past Medical History: Diagnosis Date Anxiety Diabetic peripheral neuropathy (CMS/HCC) Esophageal candidiasis (CMS/HCC) Gastroparesis History of neuroleptic malignant syndrome Hyperlipidemia Hypertension Major depressive disorder Connie-Byrne tear Marijuana use, continuous Retinopathy due to secondary diabetes (CMS/HCC) Testosterone deficiency in male Type 1 diabetes mellitus with stage 3a chronic kidney disease (CMS/HCC) Past Surgical History: Procedure Laterality Date H/O HAND SURGERY P CORRECTION, HALLUX VALGUS W SESAMOIDECTOMY,W PROX METATARSALOTOMY, ANY METHOD Left Allergies: Prochlorperazine, Silver, Silver nitrate, Iodinated diagnostic agents, Nsaids, and Metoclopramide Current Facility-Administered Medications Medication Dose Route Frequency Provider Last Rate Last Admin 0.9% NaCl with KCl 40 mEq/L solution (NS KCl 40 mEq/L) Intravenous continuous Christopher Ma, DO 100 mL/hr at 03/14/22 0817 New Bag at 03/14/22 0817 insulin lispro (HUMALOG) 100 units/mL single dose 0-5 Units 0-5 Units Subcutaneous q3s Az Oakley, DO 4 Units at 03/14/22 0912 potassium chloride (KCL) 40 mEq in 0.9 % NaCl (NS) 500 mL IV infusion 40 mEq Intravenous once Mustapha Leonard, DO dextrose 5 % and 0.9% NaCl (D5 NS) IV solution Intravenous continuous Zane Morales, DOG BEHAVIORIST 100 mL/hr at 03/14/22 0230 Rate Change at 03/14/22 0230 dextrose 50 % IV solution 50 mL 50 mL Intravenous PRN Az Oakley, DO 50 mL at 03/13/22 2140 ondansetron (Zofran) 2 mg/mL inj 4 mg 4 mg Intravenous q6h PRN Az Oakley, DO 4 mg at 03/14/22 0023 piperacillin-tazobactam (ZOSYN) 2.25 g in 0.9 % NaCl (NS) 100 mL IV piggyback 2.25 g [id number] Az Oakley, DO 200 mL/hr at 03/14/22 0751 2.25 g at 03/14/22 0751 Family History Adopted: Yes Problem Relation Name Age of Onset Hypertension Mother Atrial fibrillation Mother Hypertension Father Colon Cancer Maternal Grandfather Breast Cancer Sister Social History Tobacco Use Smoking status: Former Smoker Types: Cigarettes Quit date: 02/12/2011 Years since quittin.0 Smokeless tobacco: Never Used Vaping Use Vaping Use: Never used Substance Use Topics Alcohol use: Not Currently Drug use: Yes Types: Marijuana I performed a complete review of systems. Except where noted in the history of present illness all review of systems items were reported as negative. Physical Exam General: Unkempt, restless altered and agitated Eyes: Anicteric sclerae, conjunctiva pink HENT: Mucous membranes dry Lungs: Clear to auscultation bilaterally, normal respiratory effort CV: Tachycardic but regular, I do not appreciate a rub, no jugular venous distention Abdomen: Soft, non-tender; nondistended, bowel sounds present Extremities: No peripheral edema, no cyanosis Skin: Normal temperature, no rash noted on face or hands Vitals: 03/14/22 0458 03/14/22 0726 03/14/22 0755 03/14/22 0800 BP: (!) 167/75 (!) 166/84 BP Site: Left upper arm Pt Position for BP: Semi March's Pulse: 100 97 Resp: 18 18 Temp: 98.2 F (36.8 C) 98.6 F (37 C) TempSrc: Axillary Temporal SpO2: 100% 97% 91% 92% Weight: Laboratory and Diagnostic Data Labs in the last 24 hours Blood Gas, Venous Collection Time: 03/13/22 10:35 PM Result Value Ref Range pH, Venous 7.544 (H) 7.310 - 7.410 pCO2, Venous 58.0 (H) 41.0 - 51.0 mm/Hg pO2, Venous 30 (L) 37 - 43 mm/Hg Total Carbon Dioxide (tCO2), Venous 51.7 (H) 23.0 - 33.0 mmol/L Bicarbonate (HCO3), Venous 49.9 (H) 23.0 - 29.0 mmol/L Oxygen Saturation (SO2), Venous 50.5 (L) 70.0 - 76.0 % Base Excess (BE), Venous 22.8 (H) 0.0 - 2.0 meq/L Lactic Acid, Venous Collection Time: 03/13/22 10:36 PM Result Value Ref Range Lactic Acid, Venous 2.0 0.5 - 2.2 mmol/L Calcium, Ionized Collection Time: 03/13/22 10:36 PM Result Value Ref Range Ionized Calcium 3.62 (L) 4.75 - 5.30 mg/dL Comprehensive Metabolic Panel Collection Time: 03/13/22 10:38 PM Result Value Ref Range Sodium 136 136 - 145 mmol/L Potassium 2.9 (L) 3.5 - 5.0 mmol/L Chloride 76 (L) 99 - 109 mmol/L CO2 43 (H) 23 - 33 mmol/L Anion Gap 17 (H) 5 - 16 ratio Creatinine 5.81 (H) 0.50 - 1.30 mg/dL BUN 65 (H) 8 - 25 mg/dL Glucose 173 (H) 65 - 99 mg/dL Calcium 8.8 8.5 - 10.2 mg/dL Total Protein 7.3 6.3 - 8.0 g/dL Albumin 3.9 3.5 - 5.0 g/dL Globulin 3.4 1.8 - 3.5 g/dL Albumin/Globulin Ratio 1.1 1.0 - 2.7 ratio Total Bilirubin 0.7 0.1 - 1.5 mg/dL ALT 10 10 - 65 U/L Alk Phos 134 (H) 35 - 115 U/L AST 21 10 - 45 U/L Estimated Glomerular Filtration Rate (eGFR) 12 (L) >=60 mL/min/1.73 m2 Magnesium Collection Time: 03/13/22 10:38 PM Result Value Ref Range Magnesium 4.1 (HH) 1.7 - 2.4 mg/dL Beta Hydroxybutyrate Collection Time: 03/13/22 10:38 PM Result Value Ref Range Beta Hydroxybutyrate 0.87 (H) 0.00 - 0.29 mmol/L Prothrombin Time (PT) Collection Time: 03/13/22 10:38 PM Result Value Ref Range Protime 13.1 11.6 - 14.7 seconds INR 1.0 0.9 - 1.2 ratio Phosphorus Collection Time: 03/13/22 10:38 PM Result Value Ref Range Phosphorus 5.2 (H) 2.3 - 4.8 mg/dL Troponin T, High Sensitivity Collection Time: 03/13/22 10:38 PM Result Value Ref Range Troponin T 212 (HH) <22 ng/L Lipase Collection Time: 03/13/22 10:38 PM Result Value Ref Range Lipase 9 7 - 60 U/L Procalcitonin Collection Time: 03/13/22 10:38 PM Result Value Ref Range Procalcitonin (PCT) 0.26 (H) <0.10 ng/mL C-reactive Protein Collection Time: 03/13/22 10:38 PM Result Value Ref Range C-reactive protein 8.0 0.0 - 8.0 mg/L Urine Drug Screen Collection Time: 03/13/22 10:49 PM Result Value Ref Range Amphet/Methamphet Screen, Urine Random Negative Negative Barbiturates Screen, Urine Random Negative Negative Benzodiazepines Screen, Urine Random Negative Negative Buprenorphine Screen, Urine Random Negative Negative Cocaine Screen, Urine Random Negative Negative Methadone Screen, Urine Random Negative Negative Opiates Screen, Urine Random Negative Negative Oxycodone/Oxymorphone Screen, Urine Random Negative Negative Phencyclidine Screen, Urine Random Negative Negative THC Screen, Urine Random Positive (A) Negative Creatinine, Urine Random 45.7 None Established mg/dL Urinalysis w/Microscopic and Culture if Indicated Collection Time: 03/13/22 10:49 PM Result Value Ref Range Color Straw Straw, Yellow, Light Yellow, Dark Yellow Clarity, Urine Clear Clear Specific [place], Urine 1.010 1.001 - 1.030 pH, Ur 9.0 (H) 5.0 - 7.5 pH unit Protein, Urine 100 (A) Negative mg/dL Glucose, Ur 50 (A) Negative mg/dL Ketones, Ur Trace (A) Negative mg/dL Occult blood Small (A) Negative Bilirubin Negative Negative Leukocyte Esterase, Ur Moderate (A) Negative Nitrite, Ur Negative Negative Urobilinogen, Urine <2.0 <2.0 mg/dL RBC, Urine 2 <3.0 /HPF WBC, Ur 21 (H) <6 /HPF Squamous Epithelials, Ur <1 <=8 /HPF Bacteria Few (A) None Seen /HPF POC Blood Gas, Arterial Collection Time: 03/13/22 11:37 PM Result Value Ref Range pH, Arterial (POC) 7.62 (HH) 7.35 - 7.45 pH, Arterial (Temp Corrected) (POC) pCO2, Arterial (POC) 35 35 - 45 mmHg pCO2, Arterial (Temp Corrected) (POC) pO2, Arterial (POC) 80 70 - 90 mmHg pO2, Arterial (Temp Corrected) (POC) TCO2, Arterial (POC) 37 (H) 21 - 28 mmol/L O2 Sat, Arterial (POC) 97.6 94 - 98 % Base Excess, Arterial (POC) 14.2 (H) -2 - 2 mmol/L HCO3, Arterial (POC) 36.3 (H) 21 - 27 mmol/L Pt. Respiratory Rate (POC) Liters/Minute (POC) Mode (POC) FIO2 (POC) Peep (POC) Tidal Volume (POC) Delivery System (POC) Set Respiratory Rate (POC) Peak Inspiratory Pressure (POC) Inspiratory Time (POC) Pressure Support (POC) Patient Temp (POC) POC Glucose Collection Time: 03/14/22 2:04 AM Result Value Ref Range Glucose (POC) 467 (H) 65 - 99 mg/dL POC Glucose Collection Time: 03/14/22 3:07 AM Result Value Ref Range Glucose (POC) 414 (H) 65 - 99 mg/dL POC Glucose Collection Time: 03/14/22 4:57 AM Result Value Ref Range Glucose (POC) 206 (H) 65 - 99 mg/dL Comprehensive Metabolic Panel Collection Time: 03/14/22 5:32 AM Result Value Ref Range Sodium 137 136 - 145 mmol/L Potassium 3.5 3.5 - 5.0 mmol/L Chloride 83 (L) 99 - 109 mmol/L CO2 39 (H) 23 - 33 mmol/L Anion Gap 15 5 - 16 ratio Creatinine 5.75 (H) 0.50 - 1.30 mg/dL BUN 63 (H) 8 - 25 mg/dL Glucose 259 (H) 65 - 99 mg/dL Calcium 8.3 (L) 8.5 - 10.2 mg/dL Total Protein 6.5 6.3 - 8.0 g/dL Albumin 3.8 3.5 - 5.0 g/dL Globulin 2.7 1.8 - 3.5 g/dL Albumin/Globulin Ratio 1.4 1.0 - 2.7 ratio Total Bilirubin 0.7 0.1 - 1.5 mg/dL ALT 9 (L) 10 - 65 U/L Alk Phos 111 35 - 115 U/L AST 19 10 - 45 U/L Estimated Glomerular Filtration Rate (eGFR) 12 (L) >=60 mL/min/1.73 m2 Magnesium Collection Time: 03/14/22 5:32 AM Result Value Ref Range Magnesium 3.9 (HH) 1.7 - 2.4 mg/dL CBC Collection Time: 03/14/22 5:32 AM Result Value Ref Range WBC 17.05 (H) 4.00 - 11.00 x10E3/uL RBC 3.89 (L) 4.30 - 5.70 x10E6/uL Hemoglobin 11.0 (L) 13.7 - 16.7 g/dL Hematocrit 32.2 (L) 40.0 - 50.0 % MCV 82.8 80.0 - 100.0 fL MCH 28.3 27.0 - 34.0 pg MCHC 34.2 31.5 - 35.7 g/dL RDW 15.8 (H) 11.0 - 15.0 % Platelet Count 332 150 - 400 x10E3/uL MPV 10.3 9.4 - 12.4 fL Blood Gas, Venous Collection Time: 03/14/22 5:32 AM Result Value Ref Range pH, Venous 7.525 (H) 7.310 - 7.410 pCO2, Venous 50.8 41.0 - 51.0 mm/Hg pO2, Venous 59 (H) 37 - 43 mm/Hg Total Carbon Dioxide (tCO2), Venous 43.3 (H) 23.0 - 33.0 mmol/L Bicarbonate (HCO3), Venous 41.8 (H) 23.0 - 29.0 mmol/L Oxygen Saturation (SO2), Venous 89.6 (H) 70.0 - 76.0 % Base Excess (BE), Venous 16.4 (H) 0.0 - 2.0 meq/L POC Glucose Collection Time: 03/14/22 7:21 AM Result Value Ref Range Glucose (POC) 194 (H) 65 - 99 mg/dL POC Glucose Collection Time: 03/14/22 9:08 AM Result Value Ref Range Glucose (POC) 308 (H) 65 - 99 mg/dL Available imaging results reviewed. documented in this encounter Miscellaneous Notes Patient Communication - Stiven Salas DO - 03/24/2022 11:03 AM PDT [facility] After Care Call Facility: [facility] Program: Inpatient Transitions VisitNum: [id number] FirstName: Mauri MiddlName: Elvin LastName: Abner Suffix: Primary Phone: [phone] : [phone] Gender: Male AdmitDate: [id number] VisitType: IN DischDate: [id number] DischDoc: Crystal Matthews [id number] DischStatus: DischUnit: KH3N LatestStatus: Hang Up CalledOn: [id number] HealthSinceLeftFac: HealthSinceLeftFacAlertOn: HealthSinceLeftFacHandOn: HealthSinceLeftFacHandBy: CareInstructionQuestion: CareInstQuestionAlertOn: CareInstQuestionHandOn: CareInstQuestionHandBy: NewMedsPrescribed: PrescriptionsFilled: NotAbletoFillPrescription: NotAbletoFillPrescriptionAlertOn: NotAbletoFillPrescriptionHandOn: NotAbletoFillPrescriptionHandBy: MedicationQuestion: MedicationQuestionAlertOn: MedicationQuestionHandOn: MedicationQuestionHandBy: InstructedtoScheduleAppt: HasApptScheduled: MayNotAttendAppt: MayNotAttendApptAlertOn: MayNotAttendApptHandOn: MayNotAttendApptHandBy: SatisfactionWithCare: SatisfactionWithCareAlertOn: SatisfactionWithCareHandOn: SatisfactionWithCareHandBy: NeedNurseToCall: NeedNurseToCallAlertOn: NeedNurseToCallHandOn: NeedNurseToCallHandBy: Recognition2: Recognition: Note1: [id number]: [id number]: Note2: [id number]: [id number]: Note3: [id number]: [id number]: Nursing Notes - Ailyn Corona RN - 03/24/2022 11:01 AM PDT Patient discharge completed. Went over information in the packet and packet given to patient. His mom is here to take him to [place]. Chest port deactivated by VATS today. Prescriptions sent to his pharmacy [facility] in [place]. No further questions or needs at this time. Education - Renay Kam RD - 03/24/2022 10:46 AM PDT Diabetes Education: Visited Pt today & checked on his past 24hrs of sensor glucose readings, hispump suspended quite frequently, especially overnight, his blood sugars dropped by 68 mg/dL overnight. Discussed this with Pt & we both agreed it would be a good idea to decrease basal rates, duplicated V2 profile to create a new profile V3 & just changed the basal rates to 0.8u/hr x24hrs= 19.2 units total daily basal. Instructed Pt to discontinue Exercise Mode if he feels like he need a lowertarget &/or switch back into V2 profile if he feels like he needs more basal insulin. Encouraged Pt to follow-up with the Musical Instruments Assembler at [facility] in [place] in the near future. Renay Kam RD, [facility] [phone] Nursing Notes - Ailyn Corona RN - 03/24/2022 8:59 AM PDT Patient is nauseated this am and requested zofran. Given per SEP and effective. He is ready for discharge and the orders are in. I have called [facility] for de accessing his port and [facility] is coming to do that. Dr. Mtz has stated he needs to talk with the patient before discharging so I have let the patient know. I will recheck his BP to ensure his BP meds are effective. Call light in reach. No further needs at this time. Care Plan Notes - Marli Scanlon - 03/24/2022 8:27 AM PDT TCS Discharge Discharge Disposition: home Discharge DME: None Agency providing DME: NA Discharge care coordination: Diabetic Education Name of referral agencies: Transport: POV Medication needs at discharge: None Rx sent to [facility] . IM/HARRY dc copy delivered: Copy of the IMM discussed with Mauri wyman , 4 hr rule explained and copy provided via bedside. Care Plan Notes - Maranda Anton RN - 03/23/2022 4:54 PM PDT A/Ox4. VSS other than minor htn. Denies needing pain meds. Insulin implant pump put in by visual educator this shift. ACHS BG checks in place. PRN ativan given for anxiety x1 this shift. Tolerating diet. Proactive rounding in place. Problem: Discharge Planning Goal: Participation and Acceptance of Discharge arrangements 03/23/20221653 by Maranda Anton RN Outcome: Progressing 03/23/20221652 by Maranda Anton RN Outcome: Progressing Problem: Anxiety Goal: Alleviation of anxiety 03/23/20221653 by Maranda Anton RN Outcome: Progressing 03/23/20221652 by Maranda Anton RN Outcome: Progressing Problem: Diabetes/Hyperglycemia Goal: Glucose level within specified parameters 03/23/2022 165 by Maranda Anton RN Outcome: Progressing 03/23/2022 165 by Maranda Anton RN Outcome: Progressing Managing with ACHS BG checks Goal: Demonstrate understanding of disease process and treatment plan 03/23/2022 165 by Maranda Anton RN Outcome: Progressing 03/23/2022 165 by Maranda Anton RN Outcome: Progressing Goal: Knowledge of prescribed diet 03/23/20221653 by Maranda Anton RN Outcome: Progressing 03/23/20221652 by Maranda Anton RN Outcome: Progressing Problem: Pain - Acute Goal: Control of acute pain Description: Health care practices, cultural, addiction concerns, medication concerns and perception, past pain experiences, reluctance to report pain. Outcome: Progressing Care Plan Notes - Deana Fremean RN - 03/23/2022 3:57 PM PDT Problem: Discharge Planning Goal: Participation and Acceptance of Discharge arrangements Outcome: Progressing Transitional Care Services Note: 03/23/2022 3:57 PM DATA: Admitted for: Sepsis ([facility]) [A41.9] LOS: Total duration of encounter: 10 days Expected Discharge Date: 03/25/2022 Predicted Length of Stay: 4.3 ASSESSMENT: TCS Notes: Renal function improving, will continue to monitor for another 24-48 hours. Pt wishes to return home, his mother is accpepting of this decision. clinical unit educator came to provide insulin pump instructions to patient. Possible need for dialysis. Functional Status/Discharge needs: Long history of non-compliance with diabetes management. Current Therapies:No, NA PLAN: Recommendation for plan/transition: TBD Patient/family agreement: are in agreement with the plan Care Plan Notes - Mindi Interiano RD - 03/23/2022 2:50 PM PDT Nutrition Assessment Nutrition Problems: Problem: Inadequate oral intake Etiology: altered GI tract structure/function, e.g., gastroparesis Signs & Symptoms: conditions associated with gastroparesis, e.g. N/V, poor PO intake, poor quality diet at home Interventions: -- Continue soy banana smoothie and Ensure Max daily - recommended Premier Protein daily for home use -- Reinforced education re: small/frequent meals/snacks Current Diet Order: CC75 gm, thin liquids Assessment: Pt in good spirits - reported good appetite and likes his supplements. Consuming 50-100% of meals. Discussed protein needs decreasing at baseline d/t kidney dysfunction - pt to decrease supplement intake from BID to once daily. Pt anxious to discharge, asked about oral Granisetron which he feels has helped him immensely - msg'd provider to pass along pt request. CDE provided insulin pump and education today - pt stated good understanding. Continue to follow. Nutrition Focused Physical Exam: (Date: X) Deferred Anthropometrics: UBW: NA IBW: 63.6-77.8 kg (70.7 kg) Estimated needs: Kcals: 6681-5619 kcals/d (25-30 kcal/kg ABW (75.5 kg)) Protein: 91-113 g/d (1.2-1.5 g/kg ABW (75.5 kg)) Fluid: 30-35 ml/kg ABW Monitoring and Evaluation: Pt to consume >50% of meals/ONS during admit -- goal achieved Nursing Notes - Maranda Anton RN - 03/23/2022 12:20 PM PDT Verified, reviewed and agreed with assessment/ charting done by Yrn Myers RN. Care Plan Notes - Han Wolf RN - 03/22/2022 6:55 PM PDT Blood glucose running within sliding scale dosing. Patient reports increased anxiety this shift, PRNmedications added to MAR. Denies N/V, tolerating diet. Denies pain. Problem: Discharge Planning Goal: Participation and Acceptance of Discharge arrangements Outcome: Progressing Problem: Anxiety Goal: Alleviation of anxiety Outcome: Not progressing Problem: Diabetes/Hyperglycemia Goal: Glucose level within specified parameters Outcome: Progressing Goal: Demonstrate understanding of disease process and treatment plan Outcome: Progressing Goal: Knowledge of prescribed diet Outcome: Not progressing Care Plan Notes - Clau Lara RN - 03/22/2022 6:09 AM PDT Pt is A/.O x4, pleasant and cooperative w/care. Denied pain. Taking po well, no N/V this shift. Pt has not slept much, up walking in halls using a cane. Gait steady. Voiding. Port in right upper chest C/D/I. AM labs drawn from port. Proactive rounding done. Problem: Discharge Planning Goal: Participation and Acceptance of Discharge arrangements Outcome: Progressing Problem: Anxiety Goal: Alleviation of anxiety Outcome: Progressing Problem: Diabetes/Hyperglycemia Goal: Glucose level within specified parameters Outcome: Progressing Goal: Demonstrate understanding of disease process and treatment plan Outcome: Progressing Goal: Knowledge of prescribed diet Outcome: Progressing Care Plan Notes - Han Wolf RN - 03/21/2022 6:30 PM PDT Patient denies pain, denied N/V most of shift, 1 dose of IV antiemetic provided. Patient ind in room, up for shower today. Patient became hypoglycemic today, POC draw of 33, 15 min redraw of 30, 1 doseof D50 given via his port. 15 Recheck POC 129. 1 hour recheck 129. Patient returned to [facility] checks. Problem: Discharge Planning Goal: Participation and Acceptance of Discharge arrangements Outcome: Progressing Problem: Anxiety Goal: Alleviation of anxiety Outcome: Progressing Problem: Diabetes/Hyperglycemia Goal: Glucose level within specified parameters Outcome: Not progressing Goal: Demonstrate understanding of disease process and treatment plan Outcome: Progressing Goal: Knowledge of prescribed diet Outcome: Progressing Nursing Notes - Han Wolf RN - 03/21/2022 6:26 PM PDT Patient called,stated his blood sugar was going down. Hemalatha Laurent RN took initial blood sugar with reading of 33, carbs and protein provided, 15 recheck done with POC reading of 30, D50 provided via port. 15 recheck post D50 was 129. Provider notified and requested 1hr recheck which came back at 129. ACHS draws restarted. Nursing Notes - Han Wolf RN - 03/19/2022 6:55 PM PDT 0745 - POC glucose 438- provided notified - new order for one time 15u of humalog, 1L NS bolus palced - orders carried out. 1115- BMP redraw completed - labs reported to provider - 2nd 1L NS bolus hung. 1200 - POC glucose 262 - 10 units provided per sliding scale, provider notified. BMP redraw completed. 1215 - patient taken off floor for gastric emptying study in [facility]. 1530 - Patient returned to . Began vomiting, red streaking noted in vomit bag. Provider notified, orders placed and carried out. 1630 - POC glucose 128. 1 unit given per sliding scale. Care Plan Notes - Antonella Woodruff RD - 03/19/2022 3:03 PM PDT Nutrition Assessment Nutrition Problems: Problem: Inadequate oral intake Etiology: altered GI tract structure/function, e.g., gastroparesis Signs & Symptoms: conditions associated with gastroparesis, e.g. N/V, poor PO intake, poor quality diet at home Interventions: -- Continue soy banana smoothie and Ensure MAX BID when diet advances -- Discussed pt status with primary RN Current Diet Order: NPO Assessment: Pt out of room for gastric emptying test. Nutrition Focused Physical Exam: (Date: NA) Deferred Anthropometrics: UBW: NA IBW: 63.6-77.8 kg (70.7 kg) Estimated needs: Kcals: 8507-6861 kcals/d (25-30 kcal/kg ABW (75.5 kg)) Protein: 91-113 g/d (1.2-1.5 g/kg ABW (75.5 kg)) Fluid: 30-35 ml/kg ABW Monitoring and Evaluation: Pt to consume >50% of meals/ONS during admit -- some progress toward goal Care Plan Notes - TYREE Glover - 03/19/2022 12:10 PM PDT Problem: Discharge Planning Goal: Participation and Acceptance of Discharge arrangements Outcome: Progressing Transitional Care Services Note: 03/19/2022 12:10 PM DATA: Admitted for: Sepsis (CMS/HCC) [A41.9] LOS: Total duration of encounter: 6 days Expected Discharge Date: 03/22/2022 ASSESSMENT: TCS Notes: LBSW checked in with mother of patient about certified family home status. Mother called yesterday but didn't reach anyone and they haven't called back yet. Mother stated she did call [facility] to get a list of possible CFH in [place] that could be options for placement. Medical needs for patient changed overnight and now patient might need dialysis per the mother. Mother inquired about [place] [facility], LBSW provide [facility] pamphlet to mother. TCS will follow patient to see if medical needs improve and assist mother with finding placement for patient. Nursing Notes - Phyllis Nash RN - 03/19/2022 8:38 AM PDT Rapid Response Rapid Response Event Details Type of Event: Rapid Response Nurse Consult Reason Rapid Response Called: [] Blood Pressure [] Change in LOC [] Increasing MEWS Score [] Stroke [] Cardiac [] Diagnostic Changes [] Respiratory [x] Other Reason Called Other: DKA concern Rapid Response Nurse Arrival Date: 03/19/22 Rapid Response Nurse Arrival Time: 824 Patient Location at Time of Rapid Response: [address] Patient Information In the Last 24 Hours, has the Patient had Any of the Following: N/A Transfer/Admit in the Last 24 Hours: N/A Post Event Details Patient Disposition Post Event: Remained on Home Unit Additional Comments: Consulted by primary RN regarding concern about blood sugars, anion gap, and CO2. Pt has been nauseous and vomiting this morning. Primary RN updated MD. Orders for increased sliding scale Q4H with one time dose of 15 units short acting insulin, fluid bolus, nausea meds, and followup labs. Nursing Notes - Katiana Thurston RN - 03/19/2022 6:49 AM PDT Approximately 5 minutes after administering patient's 0600 meds, he began to heave. The patient expelled approximately 75 mL of emesis. No pills were noted in emesis. PRN Zofran administered to patient, and appears to help relieve nausea at this time. Care Plan Notes - TYREE Glover - 03/18/2022 10:27 AM PDT Problem: Discharge Planning Goal: Participation and Acceptance of Discharge arrangements Outcome: Progressing Transitional Care Services Note: 03/18/2022 10:27 AM DATA: Admitted for: Sepsis ([facility]) [A41.9] LOS: Total duration of encounter: 5 days Expected Discharge Date: 03/18/2022 ASSESSMENT: TCS Notes: LB visited with patient and mother in room about certified family home options in and provided number to mother to reach out to see if they could possibly take patient. Mother said she will reach out this afternoon. [facility] has accepted and booked if needed. Patient might need feedingtube per the mother. Mother feels patient needs higher level of care than they can provide at home and has exhausted several ALFs in the [place] area. Patient doesn't want to go to SNF. TCS will follow. Functional Status/Discharge needs: fairly independent but needs assistance with some ADLs Current Therapies:No, PLAN: Recommendation for plan/transition: TBD Patient/family agreement: is in agreement with the plan Choice, if not already done: completed Referrals/acceptances: [facility] Care Plan Notes - Antonella Woodruff, RD - 03/17/2022 3:00 PM PDT Nutrition Assessment Nutrition Problems: Problem: Inadequate oral intake Etiology: altered GI tract structure/function, e.g., gastroparesis Signs & Symptoms: conditions associated with gastroparesis, e.g. N/V, poor PO intake, poor quality diet at home Interventions: -- Provided SF popsicle -- Provided gastroparesis nutrition therapy handout and coupon for Ensure MAX -- Initiated soy banana smoothie and Ensure MAX BID -- Discussed pt status with pharmacist and TCS Current Diet Order: Controlled carb 60 gm, thin liquids Assessment: Consult received for gastroparesis. Pt and family present in room. Pt reported N/V even without intake of food. Currently feeling nauseous. Pt will eat top ramen at home and little protein foods, per family. No appetite recently and consumes water to lessen pain of dry heaving. Pt does not feel that current antiemetics are working. Hx of intolerance to Compazine. Pt finds tea, ice, ice water, diet cranberry juice soothes stomach upset. Pt agreeable to receive smoothie and Ensure MAX throughout the day. Encouraged Ensure MAX or other high protein/low carb ONS if unable to make smoothies at home. Pt often is unable to eat and then eats a large meal due to feeling very hungry. Reinforced many small meals and low fat solid foods. Pt consumed mata this AM with breakfast. Pt was unable to consume any of lunch, e.g. sandwich, cucumber, milk. Nutrition Focused Physical Exam: (Date: NA) Deferred Anthropometrics: UBW: NA IBW: 63.6-77.8 kg (70.7 kg) Estimated needs: Kcals: 7431-1691 kcals/d (25-30 kcal/kg ABW (75.5 kg)) Protein: 91-113 g/d (1.2-1.5 g/kg ABW (75.5 kg)) Fluid: 30-35 ml/kg ABW Monitoring and Evaluation: Pt to consume >50% of meals/ONS during admit -- new goal identified Nursing Notes - Joe Montalvo RN - 03/17/2022 2:48 AM PDT Is very cheery calm coopertive and thankful. Has voided x2 this shift. bs q3h with scale. Iv continues to infuse. Tele sr rate controlled htn as has been. Is feeling much better since arrival. Will continue to monitor assess and support. Care Plan Notes - LINDA Mckeon MANAGEMENT - 03/16/2022 11:02 AM PDT Images from the original note were not included. Transitional Care Services Note: 03/16/2022 11:54 AM DATA: Admitted for: Sepsis (CMS/HCC) [A41.9] LOS: Total duration of encounter: 3 days Expected Discharge Date: 03/18/2022 ASSESSMENT: TCS Notes: TCA at bedside with pt and pts mother, Roxie. Roxie insistent that pt needs placement in a facility, pt adamantly refusing placement. TCA looked at last dc note from hospitalization, stated pt dc'd with HH through [facility]. Called [facility], they have no record of this pt and pt has never been on service. TCA spoke to pt, who is open to HH. [facility] referred in [place]. TCS called Medicaid to speak to transplant case manager about housing placement options. Pt has been cleared for A&D waiver and medicaid provided for housing options-reinforced that it is pts choice. TCS found one [facility] in [place] that is accepting new applicants. Called Debora at that usp to confirm it is available, Debora stated that she would need a requested ptinterview from the pt himself. ALEKSANDAR and RN LUIS FERNANDO printed off contact information of [facility] and present it to pt. Pt stated he would look into it further. Care Plan Notes - Isidoro Hahn RN - 03/16/2022 8:32 AM PDT 0800: received pt resting in bed aaox3 w/ no complaints at this time, Mom at the bedside, assessmentas per Epic, tele: SR 1600: Tele: SR, no assessment changes at this time Care Plan Notes - Renay Agrawal RN - 03/16/2022 4:04 AM PDT Problem: Discharge Planning Goal: Participation and Acceptance of Discharge arrangements Outcome: Progressing Care Plan Notes - Isidoro Hahn RN - 03/15/2022 10:21 AM PDT 0800: received pt resting in bed w/ no complaints at this time, 1:1 at bedside, pt aao to self and place only, assessment as per Epic, tele: SR Care Plan Notes - Wilfrid Beck RN - 03/15/2022 7:19 AM PDT Restraints discontinued without harm to staff or patient while maintaining skin integrity. Care Plan Notes - Zaria Doherty LMSW - 03/14/2022 12:13 PM PDT Problem: Discharge Planning Goal: Participation and Acceptance of Discharge arrangements Outcome: Progressing Transitional Care Services Admission Assessment: 03/14/2022 12:17 PM DATA: Information obtained from patient: No, why:Patient not responsive when this worker attempted to meetwith the patient, Spoke withRoxie Abner patient's mother Admitted for: Sepsis ([facility]) [A41.9] LOS: Total duration of encounter: 1 day Expected Discharge Date: 03/19/2022 ASSESSMENT Primary Payor: [employer] Verified Secondary Payor: [place] Medicaid Verified RX Coverage: Yes Need for 340B:No PCP: Flo Peña MD Verified Preferred Pharmacy: Unverified, Previous home Services: H/H Current Home services: No current PAC services Clinical/Social Barriers: KHclinicalbarriers: Self Care needs and Family reports they have been looking for long wall mining machine tender care due to not being able to care for the patient. Home Dme's: Not discussed during this assessment Home Environment: Home with Family member/s, The patient lives with his parents in [facility]. Per the patient's mother he was living in an RV next to their house, however, it was unclear during this assessment if the patient is still residing in the RV or has moved into the home after his previous admit to during December 2021 . Covid-19 Vaccine Status: Patient has had two doses of the Covid-19 vaccine: Patient received COVID-19 MRNA (Glaxstar) I 30 MCG/0.3 ML on 11/17/2020 (outside immunization). Patient received COVID-19 MRNA (PFIZER) I 30 MCG/0.3 ML on 10/27/2020 (outside immunization). Therapy Ordered: No TCS Notes: This author met with the patient's mother Roxie to complete initial assessment. The patient's mother stated that since the patient last admit to herself and the patient's father have been trying to care for the patient and do not feel they are able to adequately assist the patient with his medical concerns. Roxie reported that she has been working with Yelitza Garcia [phone] (Department of Health and Welfare?) and that the patient has qualified for [facility] level services, however, due to the patient being on insulin and his age ALFs have reported they are unable to accept the patient. Roxie expressed that she feels the patient will need Long-Term care at a SNF due to his ongoing medical issues. Roxie is the patient's medical POA with the patient's father Gunner listed as his secondary medical POA. PLAN: Anticipated Discharge Information: Discharge Disposition: To Be Determined documented in this encounter Plan of Treatment Upcoming Encounters Date Type Specialty Care Team Description 07/26/2022 Office Visit Endocrinology Angela Negro MD [address] [place] [id number] Emm[place] Ramsey [phone] (Wo rk) documented as of this encounter Procedures Procedure Name Priority Date/Time Associated Comments Diagnosis CBC WITH AUTO Routine 03/24/2022 6:14 Results for this DIFFERENTIAL AM PDT procedure are i n the results section. RENAL PROFILE Routine 03/24/2022 6:14 Results for this AM PDT procedure are i n the results section. CBC W/AUTO DIFFERENTIAL Routine 03/24/2022 6:14 R esults for this AM PDT procedure are i n the results section. POCT GLUCOSE ACCUCHECK Routine 03/23/2022 8:00 Re sults for this PM PDT procedure are i n the results section. POCT GLUCOSE ACCUCHECK Routine 03/23/2022 3:31 Re sults for this PM PDT procedure are i n the results section. POCT GLUCOSE ACCUCHECK Routine 03/23/2022 2:58 Re sults for this PM PDT procedure are i n the results section. POCT GLUCOSE ACCUCHECK Routine 03/23/2022 12:56 R esults for this PM PDT procedure are i n the results section. POCT GLUCOSE ACCUCHECK Routine 03/23/2022 11:02 R esults for this AM PDT procedure are i n the results section. POCT GLUCOSE ACCUCHECK Routine 03/23/2022 8:17 Re sults for this AM PDT procedure are i n the results section. CBC WITH AUTO Routine 03/23/2022 5:24 Results for this DIFFERENTIAL AM PDT procedure are i n the results section. RENAL PROFILE Routine 03/23/2022 5:24 Results for this AM PDT procedure are i n the results section. CBC W/AUTO DIFFERENTIAL Routine 03/23/2022 5:24 R esults for this AM PDT procedure are i n the results section. POCT GLUCOSE ACCUCHECK Routine 03/22/2022 8:01 Re sults for this PM PDT procedure are i n the results section. POCT GLUCOSE ACCUCHECK Routine 03/22/2022 3:25 Re sults for this PM PDT procedure are i n the results section. POCT GLUCOSE ACCUCHECK Routine 03/22/2022 11:35 R esults for this AM PDT procedure are i n the results section. O US RETROPERITONEAL Routine 03/22/2022 11:00 Res ults for this AM PDT procedure are i n the results section. POCT GLUCOSE ACCUCHECK Routine 03/22/2022 7:34 Re sults for this AM PDT procedure are i n the results section. CBC WITH AUTO Routine 03/22/2022 5:24 Results for this DIFFERENTIAL AM PDT procedure are i n the results section. RENAL PROFILE Routine 03/22/2022 5:24 Results for this AM PDT procedure are i n the results section. CBC W/AUTO DIFFERENTIAL Routine 03/22/2022 5:24 R esults for this AM PDT procedure are i n the results section. POCT GLUCOSE ACCUCHECK Routine 03/21/2022 9:50 Re sults for this PM PDT procedure are i n the results section. POCT GLUCOSE ACCUCHECK Routine 03/21/2022 5:49 Re sults for this PM PDT procedure are i n the results section. POCT GLUCOSE ACCUCHECK Routine 03/21/2022 4:42 Re sults for this PM PDT procedure are i n the results section. POCT GLUCOSE ACCUCHECK Routine 03/21/2022 4:12 Re sults for this PM PDT procedure are i n the results section. POCT GLUCOSE ACCUCHECK Routine 03/21/2022 3:58 Re sults for this PM PDT procedure are i n the results section. POCT GLUCOSE ACCUCHECK Routine 03/21/2022 11:34 R esults for this AM PDT procedure are i n the results section. POCT GLUCOSE ACCUCHECK Routine 03/21/2022 8:37 Re sults for this AM PDT procedure are i n the results section. O US ABDOMINAL, LIMITED Routine 03/21/2022 5:42 R esults for this (SPECIFY AREA) AM PDT procedure are in the results section. CBC WITH AUTO Routine 03/21/2022 5:00 Results for this DIFFERENTIAL AM PDT procedure are i n the results section. PHOSPHORUS Routine 03/21/2022 5:00 Results for this AM PDT procedure are i n the results section. MAGNESIUM Routine 03/21/2022 5:00 Results for this AM PDT procedure are i n the results section. COMPREHENSIVE METABOLIC Routine 03/21/2022 5:00 R esults for this PANEL AM PDT procedure are i n the results section. CBC W/AUTO DIFFERENTIAL Routine 03/21/2022 5:00 R esults for this AM PDT procedure are i n the results section. POCT GLUCOSE ACCUCHECK Routine 03/20/2022 11:41 R esults for this PM PDT procedure are i n the results section. POCT GLUCOSE ACCUCHECK Routine 03/20/2022 8:16 Re sults for this PM PDT procedure are i n the results section. POCT GLUCOSE ACCUCHECK Routine 03/20/2022 3:52 Re sults for this PM PDT procedure are i n the results section. POCT GLUCOSE ACCUCHECK Routine 03/20/2022 11:42 R esults for this AM PDT procedure are i n the results section. POCT GLUCOSE ACCUCHECK Routine 03/20/2022 8:23 Re sults for this AM PDT procedure are i n the results section. CBC WITH AUTO Routine 03/20/2022 5:34 Results for this DIFFERENTIAL AM PDT procedure are i n the results section. RENAL PROFILE Routine 03/20/2022 5:34 Results for this AM PDT procedure are i n the results section. MAGNESIUM Routine 03/20/2022 5:34 Results for this AM PDT procedure are i n the results section. CBC W/AUTO DIFFERENTIAL Routine 03/20/2022 5:34 R esults for this AM PDT procedure are i n the results section. POCT GLUCOSE ACCUCHECK Routine 03/19/2022 8:32 Re sults for this PM PDT procedure are i n the results section. O EKG Routine 03/19/2022 7:17 Results for this PM PDT procedure are i n the results section. POCT GLUCOSE ACCUCHECK Routine 03/19/2022 5:12 Re sults for this PM PDT procedure are i n the results section. O NM GASTRIC EMPTYING Routine 03/19/2022 4:38 Res ults for this STUDY WITH SMALL BOWEL PM PDT proce dure are in TRANSIT the results section. BASIC METABOLIC PANEL Routine 03/19/2022 12:14 Re sults for this PM PDT procedure are i n the results section. POCT GLUCOSE ACCUCHECK Routine 03/19/2022 11:51 R esults for this AM PDT procedure are i n the results section. POCT GLUCOSE ACCUCHECK Routine 03/19/2022 10:17 R esults for this AM PDT procedure are i n the results section. BASIC METABOLIC PANEL Timed 03/19/2022 10:14 Re sults for this AM PDT procedure are i n the results section. POCT GLUCOSE ACCUCHECK Routine 03/19/2022 7:12 Re sults for this AM PDT procedure are i n the results section. CBC WITH AUTO Routine 03/19/2022 6:36 Results for this DIFFERENTIAL AM PDT procedure are i n the results section. RENAL PROFILE Routine 03/19/2022 6:36 Results for this AM PDT procedure are i n the results section. MAGNESIUM Routine 03/19/2022 6:36 Results for this AM PDT procedure are i n the results section. CBC W/AUTO DIFFERENTIAL Routine 03/19/2022 6:36 R esults for this AM PDT procedure are i n the results section. POCT GLUCOSE ACCUCHECK Routine 03/18/2022 8:21 Re sults for this PM PDT procedure are i n the results section. POCT GLUCOSE ACCUCHECK Routine 03/18/2022 5:19 Re sults for this PM PDT procedure are i n the results section. POCT GLUCOSE ACCUCHECK Routine 03/18/2022 12:55 R esults for this PM PDT procedure are i n the results section. POCT GLUCOSE ACCUCHECK Routine 03/18/2022 9:04 Re sults for this AM PDT procedure are i n the results section. CBC WITH AUTO Routine 03/18/2022 7:02 Results for this DIFFERENTIAL AM PDT procedure are i n the results section. RENAL PROFILE Routine 03/18/2022 7:02 Results for this AM PDT procedure are i n the results section. MAGNESIUM Routine 03/18/2022 7:02 Results for this AM PDT procedure are i n the results section. CBC W/AUTO DIFFERENTIAL Routine 03/18/2022 7:02 R esults for this AM PDT procedure are i n the results section. POCT GLUCOSE ACCUCHECK Routine 03/18/2022 6:06 Re sults for this AM PDT procedure are i n the results section. POCT GLUCOSE ACCUCHECK Routine 03/17/2022 11:42 R esults for this PM PDT procedure are i n the results section. POCT GLUCOSE ACCUCHECK Routine 03/17/2022 5:55 Re sults for this PM PDT procedure are i n the results section. POCT GLUCOSE ACCUCHECK Routine 03/17/2022 3:13 Re sults for this PM PDT procedure are i n the results section. POCT GLUCOSE ACCUCHECK Routine 03/17/2022 12:02 R esults for this PM PDT procedure are i n the results section. POCT GLUCOSE ACCUCHECK Routine 03/17/2022 9:17 Re sults for this AM PDT procedure are i n the results section. POCT GLUCOSE ACCUCHECK Routine 03/17/2022 6:21 Re sults for this AM PDT procedure are i n the results section. CBC WITH AUTO Routine 03/17/2022 3:35 Results for this DIFFERENTIAL AM PDT procedure are i n the results section. RENAL PROFILE Routine 03/17/2022 3:35 Results for this AM PDT procedure are i n the results section. MAGNESIUM Routine 03/17/2022 3:35 Results for this AM PDT procedure are i n the results section. CBC W/AUTO DIFFERENTIAL Routine 03/17/2022 3:35 R esults for this AM PDT procedure are i n the results section. POCT GLUCOSE ACCUCHECK Routine 03/17/2022 3:15 Re sults for this AM PDT procedure are i n the results section. POCT GLUCOSE ACCUCHECK Routine 03/17/2022 12:07 R esults for this AM PDT procedure are i n the results section. POCT GLUCOSE ACCUCHECK Routine 03/16/2022 8:45 Re sults for this PM PDT procedure are i n the results section. POCT GLUCOSE ACCUCHECK Routine 03/16/2022 6:38 Re sults for this PM PDT procedure are i n the results section. POCT GLUCOSE ACCUCHECK Routine 03/16/2022 3:26 Re sults for this PM PDT procedure are i n the results section. POCT GLUCOSE ACCUCHECK Routine 03/16/2022 12:29 R esults for this PM PDT procedure are i n the results section. POCT GLUCOSE ACCUCHECK Routine 03/16/2022 9:21 Re sults for this AM PDT procedure are i n the results section. POCT GLUCOSE ACCUCHECK Routine 03/16/2022 6:07 Re sults for this AM PDT procedure are i n the results section. CBC WITH AUTO Routine 03/16/2022 4:51 Results for this DIFFERENTIAL AM PDT procedure are i n the results section. CBC W/AUTO DIFFERENTIAL Routine 03/16/2022 4:51 R esults for this AM PDT procedure are i n the results section. RENAL PROFILE Routine 03/16/2022 4:50 Results for this AM PDT procedure are i n the results section. MAGNESIUM Routine 03/16/2022 4:50 Results for this AM PDT procedure are i n the results section. POCT GLUCOSE ACCUCHECK Routine 03/16/2022 3:04 Re sults for this AM PDT procedure are i n the results section. POCT GLUCOSE ACCUCHECK Routine 03/15/2022 11:35 R esults for this PM PDT procedure are i n the results section. POCT GLUCOSE ACCUCHECK Routine 03/15/2022 8:20 Re sults for this PM PDT procedure are i n the results section. POCT GLUCOSE ACCUCHECK Routine 03/15/2022 6:42 Re sults for this PM PDT procedure are i n the results section. POCT GLUCOSE ACCUCHECK Routine 03/15/2022 4:07 Re sults for this PM PDT procedure are i n the results section. POCT GLUCOSE ACCUCHECK Routine 03/15/2022 1:22 Re sults for this PM PDT procedure are i n the results section. POCT GLUCOSE ACCUCHECK Routine 03/15/2022 9:01 Re sults for this AM PDT procedure are i n the results section. POCT GLUCOSE ACCUCHECK Routine 03/15/2022 6:05 Re sults for this AM PDT procedure are i n the results section. CBC WITH AUTO Routine 03/15/2022 4:47 Results for this DIFFERENTIAL AM PDT procedure are i n the results section. RENAL PROFILE Routine 03/15/2022 4:47 Results for this AM PDT procedure are i n the results section. MAGNESIUM Routine 03/15/2022 4:47 Results for this AM PDT procedure are i n the results section. CBC W/AUTO DIFFERENTIAL Routine 03/15/2022 4:47 R esults for this AM PDT procedure are i n the results section. POCT GLUCOSE ACCUCHECK Routine 03/15/2022 3:00 Re sults for this AM PDT procedure are i n the results section. POCT GLUCOSE ACCUCHECK Routine 03/14/2022 11:56 R esults for this PM PDT procedure are i n the results section. POCT GLUCOSE ACCUCHECK Routine 03/14/2022 9:05 Re sults for this PM PDT procedure are i n the results section. POCT GLUCOSE ACCUCHECK Routine 03/14/2022 5:59 Re sults for this PM PDT procedure are i n the results section. POCT GLUCOSE ACCUCHECK Routine 03/14/2022 3:24 Re sults for this PM PDT procedure are i n the results section. POCT GLUCOSE ACCUCHECK Routine 03/14/2022 11:54 R esults for this AM PDT procedure are i n the results section. POCT GLUCOSE ACCUCHECK Routine 03/14/2022 9:08 Re sults for this AM PDT procedure are i n the results section. POCT GLUCOSE ACCUCHECK Routine 03/14/2022 7:21 Re sults for this AM PDT procedure are i n the results section. MAGNESIUM Routine 03/14/2022 5:32 Results for this AM PDT procedure are i n the results section. COMPREHENSIVE METABOLIC Routine 03/14/2022 5:32 R esults for this PANEL AM PDT procedure are i n the results section. CBC Routine 03/14/2022 5:32 Results for this AM PDT procedure are i n the results section. BLOOD GAS, VENOUS Routine 03/14/2022 5:32 Results for this AM PDT procedure are i n the results section. POCT GLUCOSE ACCUCHECK Routine 03/14/2022 4:57 Re sults for this AM PDT procedure are i n the results section. POCT GLUCOSE ACCUCHECK Routine 03/14/2022 3:07 Re sults for this AM PDT procedure are i n the results section. POCT GLUCOSE ACCUCHECK Routine 03/14/2022 2:04 Re sults for this AM PDT procedure are i n the results section. POCT ARTERIAL BLOOD GAS Routine 03/13/2022 11:37 Results for this PM PDT procedure are i n the results section. URINALYSIS W/MICROSCOPIC Routine 03/13/2022 10:49 Results for this AND CULTURE IF INDICATED PM PDT pro cedure are in the results section. CULTURE, URINE Routine 03/13/2022 10:49 Results f or this PM PDT procedure are i n the results section. URINE DRUG SCREEN STAT 03/13/2022 10:49 Result s for this PM PDT procedure are i n the results section. PROTHROMBIN TIME (PT) Routine 03/13/2022 10:38 Re sults for this PM PDT procedure are i n the results section. TROPONIN T, HIGH Routine 03/13/2022 10:38 Results for this SENSITIVITY PM PDT procedure are i n the results section. PROCALCITONIN STAT 03/13/2022 10:38 Results fo r this PM PDT procedure are i n the results section. PHOSPHORUS STAT 03/13/2022 10:38 Results for this PM PDT procedure are i n the results section. MAGNESIUM STAT 03/13/2022 10:38 Results for this PM PDT procedure are i n the results section. LIPASE Routine 03/13/2022 10:38 Results for this PM PDT procedure are i n the results section. COMPREHENSIVE METABOLIC STAT 03/13/2022 10:38 Results for this PANEL PM PDT procedure are i n the results section. C-REACTIVE PROTEIN Routine 03/13/2022 10:38 Resul ts for this PM PDT procedure are i n the results section. BETA HYDROXYBUTYRATE STAT 03/13/2022 10:38 Res ults for this PM PDT procedure are i n the results section. CULTURE, BLOOD Routine 03/13/2022 10:38 Results f or this PM PDT procedure are i n the results section. CULTURE, BLOOD Routine 03/13/2022 10:38 Results f or this PM PDT procedure are i n the results section. LACTIC ACID, VENOUS Routine 03/13/2022 10:36 Resu lts for this PM PDT procedure are i n the results section. CALCIUM, IONIZED STAT 03/13/2022 10:36 Results for this PM PDT procedure are i n the results section. BLOOD GAS, VENOUS STAT 03/13/2022 10:35 Result s for this PM PDT procedure are i n the results section. O EKG STAT 03/13/2022 10:27 Results for this PM PDT procedure are i n the results section. POCT GLUCOSE ACCUCHECK Routine 03/13/2022 10:07 R esults for this PM PDT procedure are i n the results section. POCT GLUCOSE ACCUCHECK Routine 03/13/2022 9:22 Re sults for this PM PDT procedure are i n the results section. O XR CHEST PORTABLE 1 03/13/2022 12:00 VIEW AP AM PDT documented in this encounter Results (ABNORMAL) CBC w/Auto Differential (03/24/2022 6:14 AM PDT) Patholo gist Method Time Signature WBC 6.88 4.00 - 03/24/2022 [place] 11.00 6:33 AM PDT HEALTH MAIN x10E3/uL LABORATORY ([facility]) RBC 3.87 (L) 4.30 - 03/24/2022 [place] 5.70 6:33 AM PDT [facility] MAIN x10E6/uL LABORATORY ([facility]) Hemoglobin 10.8 (L) 13.7 - 03/24/2022 [place] 16.7 g/dL 6:33 AM PDT [facility] MAIN LABORATORY ([facility]) Hematocrit 33.1 (L) 40.0 - 03/24/2022 [place] 50.0 % 6:33 AM PDT [facility] MAIN LABORATORY ([facility]) MCV 85.5 80.0 - 03/24/2022 [place] 100.0 fL 6:33 AM [facility] MAIN LABORATORY ([facility]) MCH 27.9 27.0 - 03/24/2022 [place] 34.0 pg 6:33 AM PDT [facility] LABORATORY ([facility]) MCHC 32.6 31.5 - 03/24/2022 [place] 35.7 g/dL 6:33 AM PDT [facility] LABORATORY ([facility]) RDW 16.2 (H) 11.0 - 03/24/2022 [place] 15.0 % 6:33 AM PDT [facility] LABORATORY ([facility]) Platelet Count 277 150 - 400 03/24/2022 [place] x10E3/uL 6:33 AM [facility] LABORATORY ([facility]) MPV 9.4 9.4 - 03/24/2022 [place] 12.4 fL 6:33 AM PDT [facility] MAIN LABORATORY ([facility]) Neutrophils %, 48.9 40.0 - 03/24/2022 [place] Automated 80.0 % 6:33 AM PDT [facility] MAIN LABORATORY ([facility]) Immature 0.7 0.0 - 1.0 03/24/2022 [place] Granulocytes %, % 6:33 AM PDT [facility] Automated LABORATORY ([facility]) Lymphocytes %, 34.7 15.0 - 03/24/2022 [place] Automated 45.0 % 6:33 AM PDT [facility] MAIN LABORATORY ([facility]) Monocytes %, 10.9 0.0 - 03/24/2022 [place] Automated 12.0 % 6:33 AM PDT [facility] LABORATORY ([facility]) Eosinophils %, 4.1 0.0 - 7.0 03/24/2022 [place] Automated % 6:33 AM PDT [facility] LABORATORY ([facility]) Basophils %, 0.7 0.0 - 2.0 03/24/2022 [place] Automated % 6:33 AM PDT [facility] LABORATORY ([facility]) Neutrophils Abs, 3.36 2.00 - 03/24/2022 [place] Automated 7.30 6:33 AM PDT [facility] x10E3/uL LABORATORY ([facility]) Immature 0.05 0.00 - 03/24/2022 [place] Granulocyte Abs, 0.05 6:33 AM PDT [facility] Automated x10E3/uL LABORATORY ([facility]) Lymphocytes Abs, 2.39 1.00 - 03/24/2022 [place] Automated 3.40 6:33 AM PDT [facility] x10E3/uL LABORATORY ([facility]) Monocytes Abs, 0.75 0.00 - 03/24/2022 [place] Automated 0.80 6:33 AM PDT [facility] x10E3/uL LABORATORY ([facility]) Eosinophils Abs, 0.28 0.00 - 03/24/2022 [place] Automated 0.50 6:33 AM PDT [facility] x10E3/uL LABORATORY ([facility]) Basophils Abs, 0.05 0.00 - 03/24/2022 [place] Automated 0.10 6:33 AM [facility] x10E3/uL LABORATORY ([facility]) nRBC %, 0.0 0.0 - 1.0 03/24/2022 [place] Automated /100 WBC 6:33 AM [facility] LABORATORY ([facility]) nRBC Abs, 0.00 0.00 - 03/24/2022 [place] Automated 0.01 6:33 AM [facility] x10E3/uL LABORATORY ([facility]) Specimen Anatomical Collection Method / Collection Time Recei pierre Time (Source) Location / Volume Laterality Blood (Catheter, Venipuncture / 03/24/2022 6:14 2021 6:30 Central Line Unknown AM PDT AM PDT (CVC)) Oskar Monae MD BKR LAB BLOOD ORDERABLES Performing Organization Address City/State/ZIP Code Phon e Number [facility] [address] [place] LABORATORY ([facility]) [address] [id number] (ABNORMAL) Renal Profile (03/24/2022 6:14 AM PDT) [facility] Method Time Signature Sodium 138 136 - 145 03/24/2022 [place] mmol/L 7:37 AM [facility] LABORATORY ([facility]) Potassium 4.3 3.5 - 5.0 03/24/2022 [place] mmol/L 7:37 AM [facility] LABORATORY ([facility]) Chloride 99 99 - 109 03/24/2022 [place] mmol/L 7:37 AM [facility] LABORATORY ([facility]) CO2 25 23 - 33 03/24/2022 [place] mmol/L 7:37 AM [facility] LABORATORY ([facility]) Anion Gap 14 5 - 16 03/24/2022 [place] ratio 7:37 AM [facility] LABORATORY ([facility]) Creatinine 3.61 (H) 0.50 - 03/24/2022 [place] 1.30 mg/dL 7:37 AM [facility] LABORATORY ([facility]) BUN 45 (H) 8 - 25 03/24/2022 [place] mg/dL 7:37 AM [facility] LAB[facility]ORY ([facility]) Glucose 87 65 - 99 03/24/2022 [place] mg/dL 7:37 AM [facility] LABOR[facility]ORY ([facility]) Calcium 9.6 8.5 - 10.2 03/24/2022 [place] mg/dL 7:37 AM [facility] LABORATORY ([facility]) Phosphorus 4.6 2.3 - 4.8 03/24/2022 [place] mg/dL 7:37 AM [facility] ([facility]) Albumin 4.4 3.5 - 5.0 03/24/2022 [place] g/dL 7:37 AM [facility] ([facility]) Estimated 22 (L) >=60 03/24/2022 [place] Glomerular mL/min/1.7 7:37 AM [facility] Filtration Rate 3 m2 LABORATORY (eGFR) ([facility]) Comment: Estimated GFR is calculated using the CK D-EPI equation. National Kidney Foundation (NKF) Guideli ne for Chronic Kidney Disease (CKD): >=60 Normal 45-59 Mildly to Moderately Decreased 30-44 Moderately to Severely Decreased 15-29 Severely Decreased <15 Kidney Failure Abnormalities present for at least 3 mon ths discriminate between chronic and acute disease. Specimen Anatomical Collection Method / Collection Time Recei pierre Time (Source) Location / Volume Laterality Blood (Catheter, Venipuncture / 03/24/2022 6:14 2021 6:30 Central Line Unknown AM PDT AM PDT (CVC)) Oskar Monae MD BKR LAB BLOOD ORDERABLES Performing Organization Address City/State/ZIP Code Phon e Number [facility] [address] [facility] [place] LABORATORY ([facility]) WAY [phone] (ABNORMAL) POC Glucose (03/23/2022 8:00 PM PDT) P athologist Signature Glucose (POC) 139 (H) 65 - 99 03/23/2022 [place] mg/dL 8:07 PM PDT [facility] LABORATORY ([facility]) Specimen Anatomical Collection Method Collection Time Receive d Time (Source) Location / / Volume Laterality Blood 03/23/2022 8:00 PM 2 8:07 (Capillary) PDT PM PDT Stiven NIETOR LAB POINT OF CARE TEST D OCKED DEVICE UNSOLICITED RESULTS Performing Organization Address City/[facility]/ZIP Code Phon e Number [facility] [address] [facility] [place] LABORATORY ([employer]) [address] [phone] (ABNORMAL) POC Glucose (03/23/2022 3:31 PM PDT) P athologist Signature Glucose (POC) 207 (H) 65 - 99 03/23/2022 [place] mg/dL 3:38 PM PDT [facility] LABORATORY ([facility]) Specimen Anatomical Collection Method Collection Time Receive d Time (Source) Location / / Volume Laterality Blood 03/23/2022 3:31 PM 2 3:38 (Capillary) PDT PM PDT Stiven Salas DO BKR LAB POINT OF CARE TEST D OCKED DEVICE UNSOLICITED RESULTS Performing Organization Address City/State/ZIP Code Phon e Number [facility] [address] [facility] [place] [facility]ORY ([employer]) WAY [phone] (ABNORMAL) POC Glucose (03/23/2022 2:58 PM PDT) P athologist Signature Glucose (POC) 44 (L) 65 - 99 03/23/2022 [place] [facility] mg/dL 3:04 PM PDT MAIN LABORATORY ([facility]) Specimen Anatomical Collection Method Collection Time Receive d Time (Source) Location / / Volume Laterality Blood 03/23/2022 2:58 PM 3:04 (Capillary) PDT PM PDT Stiven NIETOR LAB POINT OF CARE TEST D OCKED DEVICE UNSOLICITED RESULTS Performing Organization Address City/State/ZIP Code Phon e Number [facility] [address] [facility] [place] [facility] ([facility]) WAY [id number] (ABNORMAL) POC Glucose (03/23/2022 12:56 PM PDT) athologist Signature Glucose (POC) 126 (H) 65 - 99 03/23/2022 [place] mg/dL 1:02 PM PDT [facility] LABORATORY ([facility]) Specimen Anatomical Collection Method Collection Time Receive d Time (Source) Location / / Volume Laterality Blood 03/23/2022 12:56 03/23/2022 1:02 (Capillary) PM PDT PM PDT Stiven NIETOR LAB POINT OF CARE TEST D OCKED DEVICE UNSOLICITED RESULTS Performing Organization Address City/State/ZIP Code Phon e [facility] [address] [facility] [place] [place] [facility] ([facility]) WAY [phone] (ABNORMAL) POC Glucose (03/23/2022 11:02 AM PDT) athologist Signature Glucose (POC) 315 (H) 65 - 99 03/23/2022 [place] mg/dL 11:08 AM PDT [facility] LAB[facility]ATORY ([facility]) Specimen Anatomical Collection Method Collection Time Receive d Time (Source) Location / / Volume Laterality Blood 03/23/2022 11:02 03/23/2022 (Capillary) AM PDT 11:08 AM PDT Stiven Salas DO BKR LAB POINT OF CARE TEST D OCKED DEVICE UNSOLICITED RESULTS Performing Organization Address City/State/ZIP Code Phon e Number [facility] [address] [facility] [place] LAB[facility]ORY ([facility]) WAY [id number] (ABNORMAL) POC Glucose (03/23/2022 8:17 AM PDT) P athologist Signature Glucose (POC) 339 (H) 65 - 99 03/23/2022 [place] mg/dL 8:24 AM PDT [facility] LAB[facility]ATORY ([facility]) Specimen Anatomical Collection Method Collection Time Receive d Time (Source) Location / / Volume Laterality Blood 03/23/2022 8:17 AM 8:24 (Capillary) PDT AM PDT Stiven Salas DO BKR LAB POINT OF CARE TEST D OCKED DEVICE UNSOLICITED RESULTS Performing Organization Address City/State/ZIP Code Phon e Number [facility] [address] [facility] [place] LAB[facility] ([facility]) WAY [phone] (ABNORMAL) CBC w/Auto Differential (03/23/2022 5:24 AM PDT) Patholo gist Method Time Signature WBC 5.74 4.00 - 03/23/2022 [place] 11.00 5:45 AM [facility] x10E3/uL LABORATORY ([facility]) RBC 3.43 (L) 4.30 - 03/23/2022 [place] 5.70 5:45 AM [facility] x10E6/uL LABORATORY ([facility]) Hemoglobin 9.6 (L) 13.7 - 03/23/2022 [place] 16.7 g/dL 5:45 AM [facility] ([facility]) Hematocrit 28.6 (L) 40.0 - 03/23/2022 [place] 50.0 % 5:45 AM [facility] ([facility]) MCV 83.4 80.0 - 03/23/2022 [place] 100.0 fL 5:45 AM [facility] ([facility]) MCH 28.0 27.0 - 03/23/2022 [place] 34.0 pg 5:45 AM [facility] ([facility]) MCHC 33.6 31.5 - 03/23/2022 [place] 35.7 g/dL 5:45 AM [facility] ([facility]) RDW 15.9 (H) 11.0 - 03/23/2022 [place] 15.0 % 5:45 AM PDT [facility] LAB[facility]ATORY ([facility]) Platelet Count 243 150 - 400 03/23/2022 [place] x10E3/uL 5:45 AM PDT [facility] LABORATORY ([facility]) MPV 9.9 9.4 - 03/23/2022 [place] 12.4 fL 5:45 AM PDT [facility] LABORATORY ([facility]) Neutrophils %, 43.3 40.0 - 03/23/2022 [place] Automated 80.0 % 5:45 AM PDT [facility] LABORATORY ([facility]) Immature 0.9 0.0 - 1.0 03/23/2022 [place] Granulocytes %, % 5:45 AM PDT [facility] Automated LABORATORY ([facility]) Lymphocytes %, 39.4 15.0 - 03/23/2022 [place] Automated 45.0 % 5:45 AM PDT [facility] LABORATORY ([facility]) Monocytes %, 11.3 0.0 - 03/23/2022 [place] Automated 12.0 % 5:45 AM PDT [facility] LABORATORY ([facility]) Eosinophils %, 4.2 0.0 - 7.0 03/23/2022 [place] Automated % 5:45 AM PDT [facility] LABORATORY ([facility]) Basophils %, 0.9 0.0 - 2.0 03/23/2022 [place] Automated % 5:45 AM PDT [facility] LABORATORY ([facility]) Neutrophils Abs, 2.49 2.00 - 03/23/2022 [place] Automated 7.30 5:45 AM PDT [facility] x10E3/uL LABORATORY ([facility]) Immature 0.05 0.00 - 03/23/2022 [place] Granulocyte Abs, 0.05 5:45 AM PDT [facility] Automated x10E3/uL LABORATORY ([facility]) Lymphocytes Abs, 2.26 1.00 - 03/23/2022 [place] Automated 3.40 5:45 AM PDT [facility] MA[facility] x10E3/uL LABORATORY ([facility]) Monocytes Abs, 0.65 0.00 - 03/23/2022 [place] Automated 0.80 5:45 AM PDT [facility]IN x10E3/uL LABORATORY ([facility]) Eosinophils Abs, 0.24 0.00 - 03/23/2022 [place] Automated 0.50 5:45 AM PDT [facility] x10E3/uL LABORATORY ([facility]) Basophils Abs, 0.05 0.00 - 03/23/2022 [place] Automated 0.10 5:45 AM [facility] x10E3/uL LABORATORY ([facility]) nRBC %, 0.0 0.0 - 1.0 03/23/2022 [place] Automated /100 WBC 5:45 AM [facility] ([facility]) nRBC Abs, 0.00 0.00 - 03/23/2022 [place] Automated 0.01 5:45 AM [facility] x10E3/uL LABORATORY ([facility]) Specimen Anatomical Collection Method / Collection Time Recei pierre Time (Source) Location / Volume Laterality Blood (Venous) Venipuncture / 03/23/2022 5:24 03/23/20 22 5:40 Unknown AM PDT AM PDT Oskar Monae MD BKR LAB BLOOD ORDERABLES Performing Organization Address City/State/ZIP Code Phon e Number [facility] [address] [facility] ([facility]) [address] [phone] (ABNORMAL) Renal Profile (03/23/2022 5:24 AM PDT) [facility] gist Method Time Signature Sodium 134 (L) 136 - 145 03/23/2022 [place] mmol/L 6:21 AM [facility] ([facility]) Potassium 4.8 3.5 - 5.0 03/23/2022 [place] mmol/L 6:21 AM [facility] ([facility]) Chloride 100 99 - 109 03/23/2022 [place] mmol/L 6:21 AM [facility] ([facility]) CO2 25 23 - 33 03/23/2022 [place] mmol/L 6:21 AM [facility] ([facility]) Anion Gap 9 5 - 16 03/23/2022 [place] ratio 6:21 AM [facility] ([facility]) Creatinine 3.93 (H) 0.50 - 03/23/2022 [place] 1.30 mg/dL 6:21 AM [facility] ([facility]) BUN 41 (H) 8 - 25 03/23/2022 [place] mg/dL 6:21 AM [facility] ([facility]) Glucose 246 (H) 65 - 99 03/23/2022 [place] mg/dL 6:21 AM PDT [facility] LABORATORY ([facility]) Calcium 9.1 8.5 - 10.2 03/23/2022 [place] mg/dL 6:21 AM [facility] ([facility]) Phosphorus 4.5 2.3 - 4.8 03/23/2022 [place] mg/dL 6:21 AM [facility] ([facility]) Albumin 3.6 3.5 - 5.0 03/23/2022 [place] g/dL 6:21 AM [facility] ([facility]) Estimated 19 (L) >=60 03/23/2022 [place] Glomerular mL/min/1.7 6:21 AM [facility] Filtration Rate 3 m2 LABORATORY (eGFR) ([facility]) Comment: Estimated GFR is calculated using the CK D-EPI equation. National Kidney Foundation (NKF) Guideli ne for Chronic Kidney Disease (CKD): >=60 Normal 45-59 Mildly to Moderately Decreased 30-44 Moderately to Severely Decreased 15-29 Severely Decreased <15 Kidney Failure Abnormalities present for at least 3 mon ths discriminate between chronic and acute disease. Specimen Anatomical Collection Method / Collection Time Recei pierre Time (Source) Location / Volume Laterality Blood (Venous) Venipuncture / 03/23/2022 5:24 03/23/20 22 5:40 Unknown AM PDT AM PDT Oskar Monae MD BKR LAB BLOOD ORDERABLES Performing Organization Address City/State/ZIP Code Phon e Number [facility] [address] [facility] [facility] [place] [place] LABORATORY ([facility]) [address] [phone] (ABNORMAL) POC Glucose (03/22/2022 8:01 PM PDT) P athologist Signature Glucose (POC) 267 (H) 65 - 99 03/22/2022 [place] mg/dL 8:07 PM [facility] ([facility]) Specimen Anatomical Collection Method Collection Time Receive d Time (Source) Location / / Volume Laterality Blood 03/22/2022 8:01 PM 2 8:07 (Capillary) PDT PM PDT Keri KIMBROUGHR LAB POINT OF CARE TEST D OCKED DEVICE UNSOLICITED RESULTS Performing Organization Address [facility]/ZIP Code Phon e Number [facility] [address] [facility] [place] [place] [facility] ([employer]) [address] [phone] (ABNORMAL) POC Glucose (03/22/2022 3:25 PM PDT) P athologist Signature Glucose (POC) 237 (H) 65 - 99 03/22/2022 [place] mg/dL 3:32 PM PDT [facility] LABORATORY ([facility]) Specimen Anatomical Collection Method Collection Time Receive d Time (Source) Location / / Volume Laterality Blood 03/22/2022 3:25 PM 3:32 (Capillary) PDT PM PDT Keri KIMBROUGHR LAB POINT OF CARE TEST D OCKED DEVICE UNSOLICITED RESULTS Performing Organization Address [facility]/ZIP Code Phon e Number [facility] [address] [facility] [place] [place] [facility] ([employer]) [address] [phone] (ABNORMAL) POC Glucose (03/22/2022 11:35 AM PDT) P athologist Signature Glucose (POC) 254 (H) 65 - 99 03/22/2022 [place] mg/dL 11:42 AM PDT [facility] LABORATORY ([facility]) Specimen Anatomical Collection Method Collection Time Receive d Time (Source) Location / / Volume Laterality Blood 03/22/2022 11:35 03/22/2022 (Capillary) AM PDT 11:42 AM PDT Keri KIMBROUGHR LAB POINT OF CARE TEST D OCKED DEVICE UNSOLICITED RESULTS Performing Organization Address City/[facility]/ZIP Code Phon e Number [facility] [address] [facility] [place] LABORATORY ([employer]) WAY [phone] US RETROPERITONEAL (03/22/2022 11:00 AM PDT) Anatomical Region Laterality Modality Abdomen Ultrasound Specimen (Source) Anatomical Collection Method Collection Time Re ceived Time Location / / Volume Laterality 03/22/2022 11:09 AM PDT Impressions 03/22/2022 11:11 AM PDT IMPRESSION: 1. Negative ultrasound of the kidneys and bladder. Narrative 03/22/2022 11:11 AM PDT The lung. EXAM: US RETROPERITONEAL HISTORY: Acute kidney injury. COMPARISON: Ultrasound 03/21/2022 TECHNICAL DATA: Ultrasound examination o f the kidneys and bladder performed. Doppler interrogation used wh ere necessary. FINDINGS: Right kidney: The right kidney measured 11.1 x 6.2 x 6 .2 cm. Unremarkable renal contour. Renal cortic al thickness and echogenicity are within normal limits. No hydronephrosis, solid renal mass, or calculi. Unremarkable perinephric space. Left kidney: The left kidney measured 10.5 x 6.3 x 6. 5 cm. Unremarkable renal contour. Renal cortic al thickness and echogenicity are within normal limits. No hydronephrosis, solid renal mass, or calculi. Unremarkable perinephric space. Urinary bladder: * Unremarkable. * Ureteral flow jets were seen emanati ng from the distal ureteral orifices bilaterally. * Prevoid bladder volume: 63 mL. Other: No other significant findings. Procedure Note Lopez Parr MD - 03/22/2022F ormatting of this note might be different from the original. The lung. EXAM: US RETROPERITONEAL HISTORY: Acute kidney injury. COMPARISON: Ultrasound 03/21/2022 TECHNICAL DATA: Ultrasound examination o f the kidneys and bladder performed. Doppler interrogation used wh ere necessary. FINDINGS: Right kidney: The right kidney measured 11.1 x 6.2 x 6 .2 cm. Unremarkable renal contour. Renal cortic al thickness and echogenicity are within normal limits. No hydronephrosis, solid renal mass, or calculi. Unremarkable perinephric space. Left kidney: The left kidney measured 10.5 x 6.3 x 6. 5 cm. Unremarkable renal contour. Renal cortic al thickness and echogenicity are within normal limits. No hydronephrosis, solid renal mass, or calculi. Unremarkable perinephric space. Urinary bladder: * Unremarkable. * Ureteral flow jets were seen emanating from the distal ureteral orifices bilaterally. * Prevoid bladder volume: 63 mL. Other: No other significant findings. IMPRESSION: 1. Negative ultrasound of the kidneys an d bladder. Oskar Monae MD ULTRASOUND (ABNORMAL) POC Glucose (03/22/2022 7:34 AM PDT) P athologist Signature Glucose (POC) 141 (H) 65 - 99 03/22/2022 [place] mg/dL 7:40 AM [facility] ([facility]) Specimen Anatomical Collection Method Collection Time Receive d Time (Source) Location / / Volume Laterality Blood 03/22/2022 7:34 AM 7:40 (Capillary) PDT AM PDT Keri Salas MD BKR LAB POINT OF CARE TEST D OCKED DEVICE UNSOLICITED RESULTS Performing Organization Address City/State/ZIP Code Phon e Number [facility] [address] [facility] [place] LAB[facility] ([facility]) WAY [phone] (ABNORMAL) CBC w/Auto Differential (03/22/2022 5:24 AM PDT) Patholo gist Method Time Signature WBC 6.94 4.00 - 03/22/2022 [place] 11.00 5:45 AM [facility] x10E3/uL LABORATORY ([facility]) RBC 3.51 (L) 4.30 - 03/22/2022 [place] 5.70 5:45 AM [facility] x10E6/uL LABORATORY ([facility]) Hemoglobin 9.9 (L) 13.7 - 03/22/2022 [place] 16.7 g/dL 5:45 AM [facility] LAB[facility]ORY ([facility]) Hematocrit 29.5 (L) 40.0 - 03/22/2022 [place] 50.0 % 5:45 AM [facility] LAB[facility] ([facility]) MCV 84.0 80.0 - 03/22/2022 [place] 100.0 fL 5:45 AM [facility] LAB[facility] ([facility]) MCH 28.2 27.0 - 03/22/2022 [place] 34.0 pg 5:45 AM [facility] LAB[facility] ([facility]) MCHC 33.6 31.5 - 03/22/2022 [place] 35.7 g/dL 5:45 AM [facility] LAB[facility] ([facility]) RDW 16.0 (H) 11.0 - 03/22/2022 [place] 15.0 % 5:45 AM [facility] LAB[facility] ([facility]) Platelet Count 246 150 - 400 03/22/2022 [place] x10E3/uL 5:45 AM PDT [facility] LABORATORY ([facility]) MPV 9.8 9.4 - 03/22/2022 [place] 12.4 fL 5:45 AM PDT [facility] LABORATORY ([facility]) Neutrophils %, 52.7 40.0 - 03/22/2022 [place] Automated 80.0 % 5:45 AM PDT [facility] LABORATORY ([facility]) Immature 0.9 0.0 - 1.0 03/22/2022 [place] Granulocytes %, % 5:45 AM PDT [facility] Automated LABORATORY ([facility]) Lymphocytes %, 29.7 15.0 - 03/22/2022 [place] Automated 45.0 % 5:45 AM PDT [facility] LABORATORY ([facility]) Monocytes %, 12.8 (H) 0.0 - 03/22/2022 [place] Automated 12.0 % 5:45 AM PDT [facility] LABORATORY ([facility]) Eosinophils %, 3.3 0.0 - 7.0 03/22/2022 [place] Automated % 5:45 AM PDT [facility] LABORATORY ([facility]) Basophils %, 0.6 0.0 - 2.0 03/22/2022 [place] Automated % 5:45 AM PDT [facility] LABORATORY ([facility]) Neutrophils Abs, 3.66 2.00 - 03/22/2022 [place] Automated 7.30 5:45 AM PDT [facility] x10E3/uL LABORATORY ([facility]) Immature 0.06 (H) 0.00 - 03/22/2022 [place] Granulocyte Abs, 0.05 5:45 AM PDT [facility] Automated x10E3/uL LABORATORY ([facility]) Lymphocytes Abs, 2.06 1.00 - 03/22/2022 [place] Automated 3.40 5:45 AM PDT [facility] x10E3/uL LABORATORY ([facility]) Monocytes Abs, 0.89 (H) 0.00 - 03/22/2022 [place] Automated 0.80 5:45 AM PDT [facility] x10E3/uL LABORATORY ([facility]) Eosinophils Abs, 0.23 0.00 - 03/22/2022 [place] Automated 0.50 5:45 AM PDT [facility] x10E3/uL LABORATORY ([facility]) Basophils Abs, 0.04 0.00 - 03/22/2022 [place] Automated 0.10 5:45 AM [facility] x10E3/uL LABORATORY ([facility]) nRBC %, 0.0 0.0 - 1.0 03/22/2022 [place] Automated /100 WBC 5:45 AM [facility] LAB[facility] ([facility]) nRBC Abs, 0.00 0.00 - 03/22/2022 [place] Automated 0.01 5:45 AM [facility] x10E3/uL LABORATORY ([facility]) Specimen Anatomical Collection Method / Collection Time Recei pierre Time (Source) Location / Volume Laterality Blood (Venous) Venipuncture / 03/22/2022 5:24 03/22/20 22 5:38 Unknown AM PDT AM PDT Oskar Monae MD BKR LAB BLOOD ORDERABLES Performing Organization Address City/State/ZIP Code Phon e Number [facility] [address] [facility] [place] LABORATORY ([facility]) WAY [phone] (ABNORMAL) Renal Profile (03/22/2022 5:24 AM PDT) [facility] gist Method Time Signature Sodium 137 136 - 145 03/22/2022 [place] mmol/L 6:13 AM [facility] LAB[facility] ([facility]) Potassium 4.2 3.5 - 5.0 03/22/2022 [place] mmol/L 6:13 AM [facility] LAB[facility] ([facility]) Chloride 101 99 - 109 03/22/2022 [place] mmol/L 6:13 AM [facility] ([facility]) CO2 24 23 - 33 03/22/2022 [place] mmol/L 6:13 AM [facility] ([facility]) Anion Gap 12 5 - 16 03/22/2022 [place] ratio 6:13 AM [facility] ([facility]) Creatinine 4.24 (H) 0.50 - 03/22/2022 [place] 1.30 mg/dL 6:13 AM [facility] ([facility]) BUN 34 (H) 8 - 25 03/22/2022 [place] mg/dL 6:13 AM [facility] ([facility]) Glucose 101 (H) 65 - 99 03/22/2022 [place] mg/dL 6:13 AM [facility] ([facility]) Calcium 9.0 8.5 - 10.2 03/22/2022 [place] mg/dL 6:13 AM [facility] ([facility]) Phosphorus 4.3 2.3 - 4.8 03/22/2022 [place] mg/dL 6:13 AM [facility] ([facility]) Albumin 3.7 3.5 - 5.0 03/22/2022 [place] g/dL 6:13 AM [facility] ([facility]) Estimated 18 (L) >=60 03/22/2022 [place] Glomerular mL/min/1.7 6:13 AM [facility] Filtration Rate 3 m2 LABORATORY (eGFR) ([facility]) Comment: Estimated GFR is calculated using the CK D-EPI equation. [employer] ([employer]) Guideli ne for Chronic Kidney Disease (CKD): >=60 Normal 45-59 Mildly to Moderately Decreased 30-44 Moderately to Severely Decreased 15-29 Severely Decreased <15 Kidney Failure Abnormalities present for at least 3 mon ths discriminate between chronic and acute disease. Specimen Anatomical Collection Method / Collection Time Recei pierre Time (Source) Location / Volume Laterality Blood (Venous) Venipuncture / 03/22/2022 5:24 03/22/20 5:38 Unknown AM PDT AM PDT Oskar Monae MD BKR LAB BLOOD ORDERABLES Performing Organization Address City/State/ZIP Code Phon e Number [facility] [address] [facility] [place] LAB[place]ATORY ([facility]) WAY [phone] (ABNORMAL) POC Glucose (03/21/2022 9:50 PM PDT) P athologist Signature Glucose (POC) 141 (H) 65 - 99 03/21/2022 [place] mg/dL 9:59 PM [facility] LABORATORY ([facility]) Specimen Anatomical Collection Method Collection Time Receive d Time (Source) Location / / Volume Laterality Blood 03/21/2022 9:50 PM 9:59 (Capillary) PDT PM PDT Keri JOHNSON LAB POINT OF CARE TEST D OCKED DEVICE UNSOLICITED RESULTS Performing Organization Address City/State/ZIP Code Phon e Number [facility] [address] [facility] [place] LABORATORY ([facility]) WAY [phone] (ABNORMAL) POC Glucose (03/21/2022 5:49 PM PDT) P athologist Signature Glucose (POC) 129 (H) 65 - 99 03/21/2022 [place] mg/dL 5:56 PM PDT [facility] LABORATORY ([facility]) Specimen Anatomical Collection Method Collection Time Receive d Time (Source) Location / / Volume Laterality Blood 03/21/2022 5:49 PM 2 5:56 (Capillary) PDT PM PDT Keri JOHNSON LAB POINT OF CARE TEST D OCKED DEVICE UNSOLICITED RESULTS Performing Organization Address City/State/ZIP Code Phon e Number [facility] [address] [place], [place] LABORATORY ([facility]) WAY [phone] (ABNORMAL) POC Glucose (03/21/2022 4:42 PM PDT) P athologist Signature Glucose (POC) 129 (H) 65 - 99 03/21/2022 [place] mg/dL 4:49 PM PDT [facility] LABORATORY ([facility]) Specimen Anatomical Collection Method Collection Time Receive d Time (Source) Location / / Volume Laterality Blood 03/21/2022 4:42 PM 2 4:49 (Capillary) PDT PM PDT Keri JOHNSON LAB POINT OF CARE TEST D OCKED DEVICE UNSOLICITED RESULTS Performing Organization Address City/State/ZIP Code Phon e Number [facility] [address] [facility] [place] LABORATORY ([facility]) WAY [phone] (ABNORMAL) POC Glucose (03/21/2022 4:12 PM PDT) P athologist Signature Glucose (POC) 30 (LL) 65 - 99 03/21/2022 [place] mg/dL 4:30 PM PDT [facility] LABORATORY ([facility]) Specimen Anatomical Collection Method Collection Time Receive d Time (Source) Location / / Volume Laterality Blood 03/21/2022 4:12 PM 2 4:30 (Capillary) PDT PM PDT Magdelena Salas MD BKR LAB POINT OF CARE TEST D OCKED DEVICE UNSOLICITED RESULTS Performing Organization Address City/State/ZIP Code Phon e Number [facility] [address] [facility] [place] [place] [facility] ([employer]) [address] [phone] (ABNORMAL) POC Glucose (03/21/2022 3:58 PM PDT) P athologist Signature Glucose (POC) 33 (LL) 65 - 99 03/21/2022 [place] mg/dL 4:06 PM PDT [facility] LABORATORY ([facility]) Specimen Anatomical Collection Method Collection Time Receive d Time (Source) Location / / Volume Laterality Blood 03/21/2022 3:58 PM 4:06 (Capillary) PDT PM PDT Keri JOHNSON LAB POINT OF CARE TEST D OCKED DEVICE UNSOLICITED RESULTS Performing Organization Address City/[facility]/ZIP Code Phon e Number [facility] [address] [facility] [place] [place] [facility] ([employer]) WAY [phone] (ABNORMAL) POC Glucose (03/21/2022 11:34 AM PDT) P athologist Signature Glucose (POC) 168 (H) 65 - 99 03/21/2022 [place] mg/dL 11:42 AM PDT [facility] LABORATORY ([facility]) Specimen Anatomical Collection Method Collection Time Receive d Time (Source) Location / / Volume Laterality Blood 03/21/2022 11:34 03/21/2022 (Capillary) AM PDT 11:42 AM PDT Keri JOHNSON LAB POINT OF CARE TEST D OCKED DEVICE UNSOLICITED RESULTS Performing Organization Address City/State/ZIP Code Phon e Number [facility] [address] [facility] [place] [place] [facility] ([employer]) WAY [phone] (ABNORMAL) POC Glucose (03/21/2022 8:37 AM PDT) P athologist Signature Glucose (POC) 246 (H) 65 - 99 03/21/2022 [place] mg/dL 8:45 AM PDT [facility] LABORATORY ([facility]) Specimen Anatomical Collection Method Collection Time Receive d Time (Source) Location / / Volume Laterality Blood 03/21/2022 8:37 AM 8:45 (Capillary) PDT AM PDT Keri Salas MD BKR LAB POINT OF CARE TEST D OCKED DEVICE UNSOLICITED RESULTS Performing Organization Address City/State/ZIP Code Phon e Number [facility] [address] [facility] [place] LABORATORY ([place]) WAY [phone] US ABDOMINAL, LIMITED (SPECIFY AREA) (03/21/2022 5:42 AM PDT) Anatomical Region Laterality Modality Abdomen Ultrasound Specimen (Source) Anatomical Collection Method Collection Time Re ceived Time Location / / Volume Laterality 03/21/2022 6:02 AM PDT Impressions 03/21/2022 6:03 AM PDT IMPRESSION: 1. Cholelithiasis without evidence of acute cholecystitis. 2. Small echogenic 1.1 cm lesion in th e right liver is likely benign in the absence of known chronic liver disea se or primary malignancy. Could consider assessment with MRI if there is a primary malignancy or known chronic liver disease. Electronically signed by Nba harper 03/21/2022 6:03 AM Narrative 03/21/2022 6:03 AM PDT EXAM: US ABDOMINAL, LIMITED (SPECIFY AREA) HISTORY: Other (please add comment) COMPARISON: 01/03/2022 TECHNICAL DATA: Targeted ultrasound exam ination of the right upper quadrant of the abdomen performed, directed at th e area of interest. Doppler assessment performed where necessary. Th e study was requested as a limited exam of the right upper quadrant of the abdomen and is not a comprehensive abdominal ultrasound examination. FINDINGS: Liver: The liver is normal in size. Cran iocaudal diameter of the liver was measured at 15.9 cm at the level of the mid clavicular line. Small echogenic 1.1 cm lesion in the right hep atic lobe. Patent portal vein. Biliary ducts: The intrahepatic and extr ahepatic biliary ducts are normal. The common bile duct measures 0.5 cm in diameter. Gallbladder: Small mobile stones. Border line wall thickness. Gallbladder partially decompressed. Negative sonogra phic Gilmore's sign. Pancreas: The visible pancreas is normal in appearance. Other: No free fluid. Procedure Note Nab Dominguez MD - 03/21/2022For matting of this note might be different from the original. EXAM: US ABDOMINAL, LIMITED (SPECIFY ARE A) HISTORY: Other (please add comment) COMPARISON: 01/03/2022 TECHNICAL DATA: Targeted ultrasound exam ination of the right upper quadrant of the abdomen performed, directed at th e area of interest. Doppler assessment performed where necessary. Th e study was requested as a limited exam of the right upper quadrant of the abdomen and is not a comprehensive abdominal ultrasound examination. FINDINGS: Liver: The liver is normal in size. Cran iocaudal diameter of the liver was measured at 15.9 cm at the level of the mid clavicular line. Small echogenic 1.1 cm lesion in the right hep atic lobe. Patent portal vein. Biliary ducts: The intrahepatic and extr ahepatic biliary ducts are normal. The common bile duct measures 0.5 cm in diameter. Gallbladder: Small mobile stones. Border line wall thickness. Gallbladder partially decompressed. Negative sonogra phic Gilmore's sign. Pancreas: The visible pancreas is normal in appearance. Other: No free fluid. IMPRESSION: 1. Cholelithiasis without evidence of [place] cholecystitis. 2. Small echogenic 1.1 cm lesion in the right liver is likely benign in the absence of known chronic liver disea se or primary malignancy. Could consider assessment with MRI if there is a primary malignancy or known chronic liver disease. Electronically signed by Nba harper 03/21/2022 6:03 AM Keri Salas MD ULTRASOUND Phosphorus (03/21/2022 5:00 AM PDT) P athologist Signature Phosphorus 4.6 2.3 - 4.8 03/21/2022 [facility] mg/dL 5:42 AM PDT MAIN LABORATORY ([place]) Specimen Anatomical Collection Method / Collection Time Recei pierre Time (Source) Location / Volume Laterality Blood (Venous) Venipuncture / 03/21/2022 5:00 03/21/20 5:12 Unknown AM PDT AM PDT Mustapha RUIZ LAB BLOOD ORDERABLES Performing Organization Address City/State/ZIP Code Phon e Number [facility] MAIN [address] [facility] [place], [place] LABORATORY ([address]) [address] [phone] (ABNORMAL) Comprehensive Metabolic Panel (03/21/2022 5:00 AM PDT) [facility] Method Time Signature Sodium 138 136 - 145 03/21/2022 [place] mmol/L 5:42 AM PDT [facility] LABORATORY ([facility]) Potassium 4.1 3.5 - 5.0 03/21/2022 [place] mmol/L 5:42 AM PDT [facility] LABORATORY ([facility]) Chloride 102 99 - 109 03/21/2022 [place] mmol/L 5:42 AM PDT [facility] LABORATORY ([facility]) CO2 25 23 - 33 03/21/2022 [place] mmol/L 5:42 AM PDT [facility] LABORATORY ([facility]) Anion Gap 11 5 - 16 03/21/2022 [place] ratio 5:42 AM PDT [facility] LABORATORY ([facility]) Creatinine 3.98 (H) 0.50 - 03/21/2022 [place] 1.30 mg/dL 5:42 AM PDT [facility] LABORATORY ([facility]) BUN 28 (H) 8 - 25 03/21/2022 [place] mg/dL 5:42 AM [facility] LABORATORY ([facility]) Glucose 94 65 - 99 03/21/2022 [place] mg/dL 5:42 AM [facility] LABORATORY ([facility]) Calcium 8.8 8.5 - 10.2 03/21/2022 [place] mg/dL 5:42 AM [facility] LABORATORY ([facility]) Total Protein 6.0 (L) 6.3 - 8.0 03/21/2022 [place] g/dL 5:42 AM [facility] LABORATORY ([facility]) Albumin 3.4 (L) 3.5 - 5.0 03/21/2022 [place] g/dL 5:42 AM [facility] LABORATORY ([facility]) Globulin 2.6 1.8 - 3.5 03/21/2022 [place] g/dL 5:42 AM [facility] LABORATORY ([facility]) Albumin/Globuli 1.3 1.0 - 2.7 03/21/2022 [place] n Ratio ratio 5:42 AM PDT [facility] LABORATORY ([facility]) Total Bilirubin <0.2 0.1 - 1.5 03/21/2022 [place] mg/dL 5:42 AM [facility] LABORATORY ([facility]) ALT 10 10 - 65 03/21/2022 [place] U/L 5:42 AM [facility] LABORATORY ([facility]) Alk Phos 83 35 - 115 03/21/2022 [place] U/L 5:42 AM [facility] LABORATORY ([facility]) AST 15 10 - 45 03/21/2022 [place] U/L 5:42 AM [facility] LABORATORY ([facility]) Estimated 19 (L) >=60 03/21/2022 [place] Glomerular mL/min/1.7 5:42 AM [facility] Filtration Rate 3 m2 LABORATORY (eGFR) ([facility]) Comment: Estimated GFR is calculated using the CK D-EPI equation. National Kidney Foundation (NKF) Guideli ne for Chronic Kidney Disease (CKD): >=60 Normal 45-59 Mildly to Moderately Decreased 30-44 Moderately to Severely Decreased 15-29 Severely Decreased <15 Kidney Failure Abnormalities present for at least 3 mon ths discriminate between chronic and acute disease. Specimen Anatomical Collection Method / Collection Time Recei pierre Time (Source) Location / Volume Laterality Blood (Venous) Venipuncture / 03/21/2022 5:00 03/21/20 22 5:12 Unknown AM PDT AM PDT Keri Salas MD BKR LAB BLOOD ORDERABLES Performing Organization Address City/State/ZIP Code Phon e Number [facility] [address] [facility] [place] [place] LABORATORY ([facility]) WAY [phone] (ABNORMAL) CBC w/Auto Differential (03/21/2022 5:00 AM PDT) [facility] gist Method Time Signature WBC 5.89 4.00 - 03/21/2022 [place] 11.00 5:17 AM [facility] x10E3/uL LABORATORY ([facility]) RBC 3.36 (L) 4.30 - 03/21/2022 [place] 5.70 5:17 AM [facility] x10E6/uL LABORATORY ([facility]) Hemoglobin 9.5 (L) 13.7 - 03/21/2022 [place] 16.7 g/dL 5:17 AM [facility] LABORATORY ([facility]) Hematocrit 28.3 (L) 40.0 - 03/21/2022 [place] 50.0 % 5:17 AM [facility] LABORATORY ([facility]) MCV 84.2 80.0 - 03/21/2022 [place] 100.0 fL 5:17 AM PDT HEALTH MAIN LABORATORY ([facility]) MCH 28.3 27.0 - 03/21/2022 [place] 34.0 pg 5:17 AM PDT [facility] MAIN LABORATORY ([facility]) MCHC 33.6 31.5 - 03/21/2022 [place] 35.7 g/dL 5:17 AM PDT [facility] LABORATORY ([facility]) RDW 15.5 (H) 11.0 - 03/21/2022 [place] 15.0 % 5:17 AM PDT [facility] LABORATORY ([facility]) Platelet Count 222 150 - 400 03/21/2022 [place] x10E3/uL 5:17 AM PDT [facility] LABORATORY ([facility]) MPV 9.8 9.4 - 03/21/2022 [place] 12.4 fL 5:17 AM PDT [facility] LABORATORY ([facility]) Neutrophils %, 43.4 40.0 - 03/21/2022 [place] Automated 80.0 % 5:17 AM PDT [facility] LABORATORY ([facility]) Immature 0.8 0.0 - 1.0 03/21/2022 [place] Granulocytes %, % 5:17 AM PDT [facility] Automated LABORATORY ([facility]) Lymphocytes %, 39.6 15.0 - 03/21/2022 [place] Automated 45.0 % 5:17 AM PDT [facility] LABORATORY ([facility]) Monocytes %, 8.5 0.0 - 03/21/2022 [place] Automated 12.0 % 5:17 AM PDT [facility] LABORATORY ([facility]) Eosinophils %, 7.0 0.0 - 7.0 03/21/2022 [place] Automated % 5:17 AM PDT [facility] LABORATORY ([facility]) Basophils %, 0.7 0.0 - 2.0 03/21/2022 [place] Automated % 5:17 AM PDT [facility] MAIN LABORATORY ([facility]) Neutrophils Abs, 2.56 2.00 - 03/21/2022 [place] Automated 7.30 5:17 AM PDT [facility] MAIN x10E3/uL LABORATORY ([facility]) Immature 0.05 0.00 - 03/21/2022 [place] Granulocyte Abs, 0.05 5:17 AM PDT HEALTH MAIN Automated x10E3/uL LABORATORY ([facility]) Lymphocytes Abs, 2.33 1.00 - 03/21/2022 [place] Automated 3.40 5:17 AM PDT [facility] x10E3/uL LABORATORY ([facility]) Monocytes Abs, 0.50 0.00 - 03/21/2022 [place] Automated 0.80 5:17 AM PDT [facility] x10E3/uL LABORATORY ([facility]) Eosinophils Abs, 0.41 0.00 - 03/21/2022 [place] Automated 0.50 5:17 AM PDT [facility] x10E3/uL LABORATORY ([facility]) Basophils Abs, 0.04 0.00 - 03/21/2022 [place] Automated 0.10 5:17 AM PDT [facility] x10E3/uL LABORATORY ([facility]) nRBC %, 0.0 0.0 - 1.0 03/21/2022 [place] Automated /100 WBC 5:17 AM PDT [facility] LABORATORY ([facility]) nRBC Abs, 0.00 0.00 - 03/21/2022 [place] Automated 0.01 5:17 AM PDT [facility] x10E3/uL LABORATORY ([facility]) Specimen Anatomical Collection Method / Collection Time Recei pierre Time (Source) Location / Volume Laterality Blood (Venous) Venipuncture / 03/21/2022 5:00 03/21/20 22 5:12 Unknown AM PDT AM PDT Mustapha RUIZ LAB BLOOD ORDERABLES Performing Organization Address City/State/ZIP Code Phon e Number [facility] [address] [facility] [place] LAB[place]ATORY ([facility]) WAY [phone] Magnesium (03/21/2022 5:00 AM PDT) P athologist Signature Magnesium 1.9 1.7 - 2.4 03/21/2022 [place] [employer] mg/dL 5:42 AM PDT MAIN LABORATORY ([facility]) Specimen Anatomical Collection Method / Collection Time Recei pierre Time (Source) Location / Volume Laterality Blood (Venous) Venipuncture / 03/21/2022 5:00 03/21/20 22 5:12 Unknown AM PDT AM PDT Mustapha NIETOR LAB BLOOD ORDERABLES Performing Organization Address City/State/ZIP Code Phon e Number [facility] [address] [facility] [place] LAB[place]ORY ([facility]) WAY [phone] (ABNORMAL) POC Glucose (03/20/2022 11:41 PM PDT) P athologist Signature Glucose (POC) 180 (H) 65 - 99 03/20/2022 [place] mg/dL 11:48 PM PDT [facility] LABORATORY ([facility]) Specimen Anatomical Collection Method Collection Time Receive d Time (Source) Location / / Volume Laterality Blood 03/20/2022 11:41 03/20/2022 (Capillary) PM PDT 11:48 PM PDT Keri KIMBROUGHR LAB POINT OF CARE TEST D OCKED DEVICE UNSOLICITED RESULTS Performing Organization Address City/State/ZIP Code Phon e [facility] [address] [facility] [place] LAB[place]ORY ([facility]) WAY [phone] (ABNORMAL) POC Glucose (03/20/2022 8:16 PM PDT) P athologist Signature Glucose (POC) 211 (H) 65 - 99 03/20/2022 [place] mg/dL 8:24 PM PDT [facility] LABORATORY ([facility]) Specimen Anatomical Collection Method Collection Time Receive d Time (Source) Location / / Volume Laterality Blood 03/20/2022 8:16 PM 2 8:23 (Capillary) PDT PM PDT Keri JOHNSON LAB POINT OF CARE TEST D OCKED DEVICE UNSOLICITED RESULTS Performing Organization Address City/State/ZIP Code Phon e Number [facility] [address] [facility] ID LABORATORY ([facility]) WAY [phone] (ABNORMAL) POC Glucose (03/20/2022 3:52 PM PDT) P athologist Signature Glucose (POC) 221 (H) 65 - 99 03/20/2022 [place] mg/dL 3:59 PM PDT [facility] LABORATORY ([facility]) Specimen Anatomical Collection Method Collection Time Receive d Time (Source) Location / / Volume Laterality Blood 03/20/2022 3:52 PM 2 3:59 (Capillary) PDT PM PDT Keri JOHNSON LAB POINT OF CARE TEST D OCKED DEVICE UNSOLICITED RESULTS Performing Organization Address [facility]/ZIP Code Phon e Number [facility] [address] [facility] [place] [facility] ([facility]) WAY [phone] (ABNORMAL) POC Glucose (03/20/2022 11:42 AM PDT) P athologist Signature Glucose (POC) 326 (H) 65 - 99 03/20/2022 [place] mg/dL 11:48 AM PDT [facility] LABORATORY ([facility]) Specimen Anatomical Collection Method Collection Time Receive d Time (Source) Location / / Volume Laterality Blood 03/20/2022 11:42 03/20/2022 (Capillary) AM PDT 11:48 AM PDT Keri JOHNSON LAB POINT OF CARE TEST D OCKED DEVICE UNSOLICITED RESULTS Performing Organization Address [facility]/ZIP Code Phon e Number [facility] [address] [facility] [place] [facility] ([facility]) WAY [phone] (ABNORMAL) POC Glucose (03/20/2022 8:23 AM PDT) athologist Signature Glucose (POC) 180 (H) 65 - 99 03/20/2022 [place] mg/dL 8:30 AM PDT [facility] LABORATORY ([facility]) Specimen Anatomical Collection Method Collection Time Receive d Time (Source) Location / / Volume Laterality Blood 03/20/2022 8:23 AM 8:29 (Capillary) PDT AM PDT Keri JOHNSON LAB POINT OF CARE TEST D OCKED DEVICE UNSOLICITED RESULTS Performing Organization Address [facility]/ZIP Code Phon e Number [facility] [address] [facility] [place] LAB[place]ORY ([facility]) WAY [phone] (ABNORMAL) CBC w/Auto Differential (03/20/2022 5:34 AM PDT) [facility] gist Method Time Signature WBC 8.43 4.00 - 03/20/2022 [place] 11.00 6:02 AM PDT [facility] x10E3/uL LABORATORY ([facility]) RBC 3.55 (L) 4.30 - 03/20/2022 [place] 5.70 6:02 AM PDT [facility] MAIN x10E6/uL LABORATORY ([facility]) Hemoglobin 9.9 (L) 13.7 - 03/20/2022 [place] 16.7 g/dL 6:02 AM PDT [facility] LABORATORY ([facility]) Hematocrit 29.8 (L) 40.0 - 03/20/2022 [place] 50.0 % 6:02 AM PDT [facility] LABORATORY ([facility]) MCV 83.9 80.0 - 03/20/2022 [place] 100.0 fL 6:02 AM PDT [facility] LABORATORY ([facility]) MCH 27.9 27.0 - 03/20/2022 [place] 34.0 pg 6:02 AM PDT [facility] LABORATORY ([facility]) MCHC 33.2 31.5 - 03/20/2022 [place] 35.7 g/dL 6:02 AM PDT [facility] LABORATORY ([facility]) RDW 15.5 (H) 11.0 - 03/20/2022 [place] 15.0 % 6:02 AM PDT [facility] LABORATORY ([facility]) Platelet Count 233 150 - 400 03/20/2022 [place] x10E3/uL 6:02 AM PDT [facility] LABORATORY ([facility]) MPV 10.7 9.4 - 03/20/2022 [place] 12.4 fL 6:02 AM [facility] LABORATORY ([facility]) Neutrophils %, 63.2 40.0 - 03/20/2022 [place] Automated 80.0 % 6:02 AM [facility] LABORATORY ([facility]) Immature 0.6 0.0 - 1.0 03/20/2022 [place] Granulocytes %, % 6:02 AM [facility] Automated LABORATORY ([facility]) Lymphocytes %, 21.8 15.0 - 03/20/2022 [place] Automated 45.0 % 6:02 AM PDT [facility] LABORATORY ([facility]) Monocytes %, 6.8 0.0 - 03/20/2022 [place] Automated 12.0 % 6:02 AM PDT [facility] LABORATORY ([facility]) Eosinophils %, 7.0 0.0 - 7.0 03/20/2022 [place] Automated % 6:02 AM PDT [facility] LABORATORY ([facility]) Basophils %, 0.6 0.0 - 2.0 03/20/2022 [place] Automated % 6:02 AM PDT [facility] LABORATORY ([facility]) Neutrophils Abs, 5.33 2.00 - 03/20/2022 [place] Automated 7.30 6:02 AM PDT [facility] x10E3/uL LABORATORY ([facility]) Immature 0.05 0.00 - 03/20/2022 [place] Granulocyte Abs, 0.05 6:02 AM PDT [facility] Automated x10E3/uL LABORATORY ([facility]) Lymphocytes Abs, 1.84 1.00 - 03/20/2022 [place] Automated 3.40 6:02 AM PDT [facility] x10E3/uL LABORATORY ([facility]) Monocytes Abs, 0.57 0.00 - 03/20/2022 [place] Automated 0.80 6:02 AM PDT [facility] x10E3/uL LABORATORY ([facility]) Eosinophils Abs, 0.59 (H) 0.00 - 03/20/2022 [place] Automated 0.50 6:02 AM PDT [facility] x10E3/uL LABORATORY ([facility]) Basophils Abs, 0.05 0.00 - 03/20/2022 [place] Automated 0.10 6:02 AM PDT [facility] x10E3/uL LABORATORY ([facility]) nRBC %, 0.0 0.0 - 1.0 03/20/2022 [place] Automated /100 WBC 6:02 AM PDT [facility] LABORATORY ([facility]) nRBC Abs, 0.00 0.00 - 03/20/2022 [place] Automated 0.01 6:02 AM PDT [facility] x10E3/uL LABORATORY ([facility]) Specimen Anatomical Collection Method / Collection Time Recei pierre Time (Source) Location / Volume Laterality Blood (Venous) Venipuncture / 03/20/2022 5:34 03/20/20 22 5:52 Unknown AM PDT AM PDT Mustapha Leonrad DO BKR LAB BLOOD ORDERABLES Performing Organization Address City/State/ZIP Code Phon e Number [facility] [address] [place] LABORATORY ([facility]) WAY [phone] (ABNORMAL) Renal Profile (03/20/2022 5:34 AM PDT) [facility] Method Time Signature Sodium 135 (L) 136 - 145 03/20/2022 [place] mmol/L 6:20 AM [facility] LABORATORY ([facility]) Potassium 4.0 3.5 - 5.0 03/20/2022 [place] mmol/L 6:20 AM [facility] LABORATORY ([facility]) Chloride 98 (L) 99 - 109 03/20/2022 [place] mmol/L 6:20 AM [facility] LABORATORY ([facility]) CO2 22 (L) 23 - 33 03/20/2022 [place] mmol/L 6:20 AM [facility] LABORATORY ([facility]) Anion Gap 15 5 - 16 03/20/2022 [place] ratio 6:20 AM [facility] LABORATORY ([facility]) Creatinine 4.02 (H) 0.50 - 03/20/2022 [place] 1.30 mg/dL 6:20 AM [facility] LABORATORY ([facility]) BUN 28 (H) 8 - 25 03/20/2022 [place] mg/dL 6:20 AM [facility] LABORATORY ([facility]) Glucose 149 (H) 65 - 99 03/20/2022 [place] mg/dL 6:20 AM [facility] LABORATORY ([facility]) Calcium 8.9 8.5 - 10.2 03/20/2022 [place] mg/dL 6:20 AM [facility] LABORATORY ([facility]) Phosphorus 3.9 2.3 - 4.8 03/20/2022 [place] mg/dL 6:20 AM [facility] LABORATORY ([facility]) Albumin 3.5 3.5 - 5.0 03/20/2022 [place] g/dL 6:20 AM [facility] LABORATORY ([facility]) Estimated 19 (L) >=60 03/20/2022 [place] Glomerular mL/min/1.7 6:20 AM [facility] Filtration Rate 3 m2 LABORATORY (eGFR) ([facility]) Comment: Estimated GFR is calculated using the CK D-EPI equation. National Kidney Foundation (NKF) Guideli ne for Chronic Kidney Disease (CKD): >=60 Normal 45-59 Mildly to Moderately Decreased 30-44 Moderately to Severely Decreased 15-29 Severely Decreased <15 Kidney Failure Abnormalities present for at least 3 mon ths discriminate between chronic and acute disease. Specimen Anatomical Collection Method / Collection Time Recei pierre Time (Source) Location / Volume Laterality Blood (Venous) Venipuncture / 03/20/2022 5:34 03/20/20 22 5:52 Unknown AM PDT AM PDT Mustapha NIETOR LAB BLOOD ORDERABLES Performing Organization Address City/[facility]/ZIP Code Phon e Number [facility] [address] [facility] [place] LABORATORY ([facility]) WAY [phone] Magnesium (03/20/2022 5:34 AM PDT) athologist Signature Magnesium 1.9 1.7 - 2.4 03/20/2022 [place] [facility] mg/dL 6:20 AM PDT MAIN LABORATORY ([facility]) Specimen Anatomical Collection Method / Collection Time Recei pierre Time (Source) Location / Volume Laterality Blood (Venous) Venipuncture / 03/20/2022 5:34 03/20/20 22 5:52 Unknown AM PDT AM PDT Mustapha NIETOR LAB BLOOD ORDERABLES Performing Organization Address [facility]/ZIP Code Phon e Number [facility] [address] [facility] [place] LABORATORY ([facility]) WAY [phone] (ABNORMAL) POC Glucose (03/19/2022 8:32 PM PDT) athologist Signature Glucose (POC) 167 (H) 65 - 99 03/19/2022 [place] mg/dL 8:39 PM PDT HEALTH MAIN LABORATORY ([facility]) Specimen Anatomical Collection Method Collection Time Receive d Time (Source) Location / / Volume Laterality Blood 03/19/2022 8:32 PM 8:39 (Capillary) PDT PM PDT Keri Salas MD BKR LAB POINT OF CARE TEST D OCKED DEVICE UNSOLICITED RESULTS Performing Organization Address City/[facility]/ZIP Code Phon e Number [facility] [address] [facility] [place] LABORATORY ([employer]) WAY [phone] EKG (03/19/2022 7:17 PM PDT) athologist Signature HEART RATE 98 bpm RED ISECG RR Interval 612 ms RED ISECG Atrial Rate 98 ms RED ISECG P-R Interval 165 ms RED ISECG P Duration 120 ms RED ISECG P Horizontal 31 deg RED ISECG [place] P Front [place] 63 deg RED ISECG Q Onset 503 ms RED ISECG QRSD Interval 84 ms RED ISECG QT Interval 360 ms RED ISECG QTcB 460 ms RED ISECG QTcF 424 ms RED ISECG QRS Horizontal -33 deg RED ISECG [place] QRS [place] 74 deg RED ISECG I-40 Horizontal 95 deg RED ISECG [place] I-40 Front [place] -30 deg RED ISECG T-40 Horizontal -38 deg RED ISECG [place] T-40 Front [place] 78 deg RED ISECG T Horizontal 95 deg RED ISECG [place] T Wave [place] 93 deg RED ISECG S-T Horizontal 122 deg RED ISECG [place] S-T Front [place] 116 deg RED ISECG Specimen (Source) Anatomical Collection Method Collection Time Re ceived Time Location / / Volume Laterality 03/19/2022 7:17 PM PDT Narrative RED ISECG - 03/19/2022 8:44 PM PDT - ABNORMAL ECG - Sinus rhythm Consider left ventricular hypertrophy Nonspecific T abnormalities, lateral l forrest Keri Salas MD NURSING TREATMENT ORDERS Performing Organization Address City/State/ZIP Code Phon e Number [facility]AYA ISECG RED ISECG (ABNORMAL) POC Glucose (03/19/2022 5:12 PM PDT) P athologist Signature Glucose (POC) 128 (H) 65 - 99 03/19/2022 [place] mg/dL 5:18 PM PDT HEALTH MAIN LABORATORY ([facility]) Specimen Anatomical Collection Method Collection Time Receive d Time (Source) Location / / Volume Laterality Blood 03/19/2022 5:12 PM 5:18 (Capillary) PDT PM PDT Keri Salas MD BKR LAB POINT OF CARE TEST D OCKED DEVICE UNSOLICITED RESULTS Performing Organization Address City/State/ZIP Code Phon e Number [place] Teamleader [facility] [address] [place] LABORATORY ([facility]) WAY [phone] NM GASTRIC EMPTYING STUDY WITH SMALL BOWEL TRANSIT (03/19/2022 4:38 PM PDT) Anatomical Region Laterality Modality GI Nuclear Medicine Specimen (Source) Anatomical Collection Method Collection Time Re ceived Time Location / / Volume Laterality 03/19/2022 4:16 PM PDT Impressions 03/19/2022 4:48 PM PDT IMPRESSION: 1. Gastric emptying study within bailey l limits. *Gastric emptying values based on consen toshia recommendations for gastric emptying scintigraphy: A joint report of the [place] neurogastroenterology and motility society and the Society nuc lear medicine. http://www.snm.org/docs/GES_Consensus_Ma [email or web address].pdf Narrative 03/19/2022 4:48 PM PDT EXAM: NM GASTRIC EMPTYING STUDY WITH SMALL BOWEL TRANSIT. HISTORY PROVIDED BY ORDERING PHYSICIAN: Gastroparesis suspected. ADDITIONAL HISTORY: None. TECHNIQUE: Multiple planar images were o btained after oral administration of a meal containing 1 mCi Tc-99m sulfur colloid. Gastric emptying calculations were made using counts in a region of interest centered on the stomach at 1 hour, 2 hours and 4 hours. FINDINGS: The radionuclide was promptly visible in the stomach and demonstrated antegrade progression into the small bowel. Gastric emptying at 1 hour was 58% (norm al range: 10%-70%). Gastric emptying at 2 hours was 92% (nor mal: Greater than 40%). Gastric emptying at 4 hours was 95% (nor mal: Greater than 90%). No gastroesophageal reflux identified. Procedure Note Oskar Valentine MD - 03/19/2022 EXAM: NM GASTRIC EMPTYING STUDY WITH SMA LL BOWEL TRANSIT. HISTORY PROVIDED BY ORDERING PHYSICIAN: Gastroparesis suspected. ADDITIONAL HISTORY: None. TECHNIQUE: Multiple planar images were o btained after oral administration of a meal containing 1 mCi Tc-99m sulfur colloid. Gastric emptying calculations were made using counts in a region of interest centered on the stomach at 1 hour, 2 hours and 4 hours. FINDINGS: The radionuclide was promptly visible in the stomach and demonstrated antegrade progression into the small bowel. Gastric emptying at 1 hour was 58% (norm al range: 10%-70%). Gastric emptying at 2 hours was 92% (nor mal: Greater than 40%). Gastric emptying at 4 hours was 95% (nor mal: Greater than 90%). No gastroesophageal reflux identified. IMPRESSION: 1. Gastric emptying study within normal limits. *Gastric emptying values based on consen toshia recommendations for gastric emptying scintigraphy: A joint report of the [place] neurogastroenterology and motility society and the Society nuc lear medicine. http://www.snm.org/docs/GES_Consensus_Ma bfojcjrg_[email or web address].pdf María Taylor PA-C NUCLEAR MEDICINE (ABNORMAL) Basic Metabolic Panel (03/19/2022 12:14 PM PDT) [facility] Method Time Signature Sodium 139 136 - 145 03/19/2022 [place] mmol/L 1:16 PM PDT [facility] MAIN LABORATORY ([facility]) Potassium 3.9 3.5 - 5.0 03/19/2022 [place] mmol/L 1:16 PM [facility] LABORATORY ([facility]) Chloride 104 99 - 109 03/19/2022 [place] mmol/L 1:16 PM [facility] LABORATORY ([facility]) CO2 20 (L) 23 - 33 03/19/2022 [place] mmol/L 1:16 PM [facility] LABORATORY ([facility]) Anion Gap 15 5 - 16 03/19/2022 [place] ratio 1:16 PM [facility] LABORATORY ([facility]) Creatinine 4.36 (H) 0.50 - 03/19/2022 [place] 1.30 mg/dL 1:16 PM [facility] LABORATORY ([facility]) BUN 34 (H) 8 - 25 03/19/2022 [place] mg/dL 1:16 PM [facility] LABORATORY ([facility]) Glucose 262 (H) 65 - 99 03/19/2022 [place] mg/dL 1:16 PM [facility] LABORATORY ([facility]) Calcium 8.5 8.5 - 10.2 03/19/2022 [place] mg/dL 1:16 PM [facility] LABORATORY ([facility]) Estimated 17 (L) >=60 03/19/2022 [place] Glomerular mL/min/1.7 1:16 PM [facility] Filtration Rate 3 m2 LABORATORY (eGFR) ([facility]) Comment: Estimated GFR is calculated using the CK D-EPI equation. National Kidney Foundation (NKF) Guideli ne for Chronic Kidney Disease (CKD): >=60 Normal 45-59 Mildly to Moderately Decreased 30-44 Moderately to Severely Decreased 15-29 Severely Decreased <15 Kidney Failure Abnormalities present for at least 3 mon ths discriminate between chronic and acute disease. Specimen Anatomical Collection Method Collection Time Receive d Time (Source) Location / / Volume Laterality Blood (Catheter, Central Line / 03/19/2022 12:14 03/19 Central Line Unknown PM PDT 12:18 PM PDT (CVC)) Keri Salas MD BKR LAB BLOOD ORDERABLES Performing Organization Address City/State/ZIP Code Phon e Number [facility] [address] [facility] LABORATORY ([employer]) WAY [phone] (ABNORMAL) POC Glucose (03/19/2022 11:51 AM PDT) P athologist Signature Glucose (POC) 262 (H) 65 - 99 03/19/2022 [place] mg/dL 11:58 AM PDT [facility] LABORATORY ([employer]) Specimen Anatomical Collection Method Collection Time Receive d Time (Source) Location / / Volume Laterality Blood 03/19/2022 11:51 03/19/2022 (Capillary) AM PDT 11:58 AM PDT Keri Salas MD BKR LAB POINT OF CARE TEST D OCKED DEVICE UNSOLICITED RESULTS Performing Organization Address City/[facility]/ZIP Code Phon e Number [facility] [address] [facility] LABORATORY ([employer]) [address] [phone] (ABNORMAL) POC Glucose (03/19/2022 10:17 AM PDT) P athologist Signature Glucose (POC) 327 (H) 65 - 99 03/19/2022 [place] mg/dL 10:24 AM PDT [facility] LABORATORY ([employer]) Specimen Anatomical Collection Method Collection Time Receive d Time (Source) Location / / Volume Laterality Blood 03/19/2022 10:17 03/19/2022 (Capillary) AM PDT 10:24 AM PDT Keri KIMBROUGHR LAB POINT OF CARE TEST D OCKED DEVICE UNSOLICITED RESULTS Performing Organization Address City/State/ZIP Code Phon e Number [facility] [address] [facility] LABORATORY ([facility]) WAY [phone] (ABNORMAL) Basic Metabolic Panel (03/19/2022 10:14 AM PDT) [facility] gist Method Time Signature Sodium 133 (L) 136 - 145 03/19/2022 [place] mmol/L 10:55 AM [facility] LABORATORY ([facility]) Potassium 4.2 3.5 - 5.0 03/19/2022 [place] mmol/L 10:55 AM [facility] LABORATORY ([facility]) Chloride 95 (L) 99 - 109 03/19/2022 [place] mmol/L 10:55 AM [facility] LABORATORY ([facility]) CO2 19 (L) 23 - 33 03/19/2022 [place] mmol/L 10:55 AM [facility] LABORATORY ([facility]) Anion Gap 19 (H) 5 - 16 03/19/2022 [place] ratio 10:55 AM [facility] LABORATORY ([facility]) Creatinine 4.42 (H) 0.50 - 03/19/2022 [place] 1.30 mg/dL 10:55 AM [facility] LABORATORY ([facility]) BUN 36 (H) 8 - 25 03/19/2022 [place] mg/dL 10:55 AM [facility] LABORATORY ([facility]) Glucose 382 (H) 65 - 99 03/19/2022 [place] mg/dL 10:55 AM [facility] LABORATORY ([facility]) Calcium 9.1 8.5 - 10.2 03/19/2022 [place] mg/dL 10:55 AM [facility] LABORATORY ([facility]) Estimated 17 (L) >=60 03/19/2022 [place] Glomerular mL/min/1.7 10:55 AM [facility] Filtration Rate 3 m2 LABORATORY (eGFR) ([facility]) Comment: Estimated GFR is calculated using the CK D-EPI equation. National Kidney Foundation (NKF) Guideli ne for Chronic Kidney Disease (CKD): >=60 Normal 45-59 Mildly to Moderately Decreased 30-44 Moderately to Severely Decreased 15-29 Severely Decreased <15 Kidney Failure Abnormalities present for at least 3 mon ths discriminate between chronic and acute disease. Specimen Anatomical Collection Method / Collection Time Recei pierre Time (Source) Location / Volume Laterality Blood (Catheter, Venipuncture / 03/19/2022 10:14 03/19 Central Line Unknown AM PDT 10:22 AM PDT (CVC)) Keri Salas MD BKR LAB BLOOD ORDERABLES Performing Organization Address City/State/ZIP Code Phon e Number [facility] [address] [place], [place] LABORATORY ([facility]) WAY [phone] (ABNORMAL) POC Glucose (03/19/2022 7:12 AM PDT) P athologist Signature Glucose (POC) 438 (H) 65 - 99 03/19/2022 [place] mg/dL 7:20 AM PDT [facility] LABORATORY ([facility]) Specimen Anatomical Collection Method Collection Time Receive d Time (Source) Location / / Volume Laterality Blood 03/19/2022 7:12 AM 7:20 (Capillary) PDT AM PDT Keri Salas MD BKR LAB POINT OF CARE TEST D OCKED DEVICE UNSOLICITED RESULTS Performing Organization Address City/[facility]/ZIP Code Phon e Number [facility] [address] [facility] [place] LABORATORY ([facility]) WAY [id number] (ABNORMAL) CBC w/Auto Differential (03/19/2022 6:36 AM PDT) Patholo gist Method Time Signature WBC 7.51 4.00 - 03/19/2022 [place] 11.00 6:46 AM [facility] x10E3/uL LABORATORY ([facility]) RBC 3.51 (L) 4.30 - 03/19/2022 [place] 5.70 6:46 AM PDT [facility] x10E6/uL LABORATORY ([facility]) Hemoglobin 9.9 (L) 13.7 - 03/19/2022 [place] 16.7 g/dL 6:46 AM [facility] LABORATORY ([facility]) Hematocrit 29.8 (L) 40.0 - 03/19/2022 [place] 50.0 % 6:46 AM [facility] LABORATORY ([facility]) MCV 84.9 80.0 - 03/19/2022 [place] 100.0 fL 6:46 AM [facility] LABORATORY ([facility]) MCH 28.2 27.0 - 03/19/2022 [place] 34.0 pg 6:46 AM PDT HEALTH MAIN LABORATORY ([facility]) MCHC 33.2 31.5 - 03/19/2022 [place] 35.7 g/dL 6:46 AM PDT [facility] LABORATORY ([facility]) RDW 15.0 11.0 - 03/19/2022 [place] 15.0 % 6:46 AM PDT [facility] LABORATORY ([facility]) Platelet Count 225 150 - 400 03/19/2022 [place] x10E3/uL 6:46 AM PDT [facility] LABORATORY ([facility]) MPV 10.6 9.4 - 03/19/2022 [place] 12.4 fL 6:46 AM PDT [facility] LABORATORY ([facility]) Neutrophils %, 60.1 40.0 - 03/19/2022 [place] Automated 80.0 % 6:46 AM PDT [facility] LABORATORY ([facility]) Immature 0.4 0.0 - 1.0 03/19/2022 [place] Granulocytes %, % 6:46 AM PDT [facility] Automated LABORATORY ([facility]) Lymphocytes %, 25.3 15.0 - 03/19/2022 [place] Automated 45.0 % 6:46 AM PDT [facility] LABORATORY ([facility]) Monocytes %, 6.5 0.0 - 03/19/2022 [place] Automated 12.0 % 6:46 AM PDT [facility] LABORATORY ([facility]) Eosinophils %, 6.9 0.0 - 7.0 03/19/2022 [place] Automated % 6:46 AM PDT [facility] LABORATORY ([facility]) Basophils %, 0.8 0.0 - 2.0 03/19/2022 [place] Automated % 6:46 AM PDT [facility] LABORATORY ([facility]) Neutrophils Abs, 4.51 2.00 - 03/19/2022 [place] Automated 7.30 6:46 AM PDT [facility] x10E3/uL LABORATORY ([facility]) Immature 0.03 0.00 - 03/19/2022 [place] Granulocyte Abs, 0.05 6:46 AM PDT [facility] Automated x10E3/uL LABORATORY ([facility]) Lymphocytes Abs, 1.90 1.00 - 03/19/2022 [place] Automated 3.40 6:46 AM PDT [facility] x10E3/uL LABORATORY ([facility]) Monocytes Abs, 0.49 0.00 - 03/19/2022 [place] Automated 0.80 6:46 AM PDT [facility] x10E3/uL LABORATORY ([facility]) Eosinophils Abs, 0.52 (H) 0.00 - 03/19/2022 [place] Automated 0.50 6:46 AM PDT [facility] x10E3/uL LABORATORY ([facility]) Basophils Abs, 0.06 0.00 - 03/19/2022 [place] Automated 0.10 6:46 AM PDT [facility] x10E3/uL LABORATORY ([facility]) nRBC %, 0.0 0.0 - 1.0 03/19/2022 [place] Automated /100 WBC 6:46 AM PDT [facility] LABORATORY ([facility]) nRBC Abs, 0.00 0.00 - 03/19/2022 [place] Automated 0.01 6:46 AM PDT [facility] x10E3/uL LABORATORY ([facility]) Specimen Anatomical Collection Method / Collection Time Recei pierre Time (Source) Location / Volume Laterality Blood (Venous) Venipuncture / 03/19/2022 6:36 03/19/20 22 6:38 Unknown AM PDT AM PDT Mustapha Leonard DO BKR LAB BLOOD ORDERABLES Performing Organization Address City/State/ZIP Code Phon e Number [facility] [address] [place] LABORATORY ([facility]) WAY [phone] (ABNORMAL) Renal Profile (03/19/2022 6:36 AM PDT) [facility] gist Method Time Signature Sodium 129 (L) 136 - 145 03/19/2022 [place] mmol/L 7:10 AM [facility] LABORATORY ([facility]) Potassium 5.3 (H) 3.5 - 5.0 03/19/2022 [place] mmol/L 7:10 AM [facility] LABORATORY ([facility]) Chloride 93 (L) 99 - 109 03/19/2022 [place] mmol/L 7:10 AM [facility] LABORATORY ([facility]) CO2 19 (L) 23 - 33 03/19/2022 [place] mmol/L 7:10 AM [facility] LABORATORY ([facility]) Anion Gap 17 (H) 5 - 16 03/19/2022 [place] ratio 7:10 AM [facility] LABORATORY ([facility]) Creatinine 4.70 (H) 0.50 - 03/19/2022 [place] 1.30 mg/dL 7:10 AM [facility] LABORATORY ([facility]) BUN 35 (H) 8 - 25 03/19/2022 [place] mg/dL 7:10 AM [facility] LABORATORY ([facility]) Glucose 412 (H) 65 - 99 03/19/2022 [place] mg/dL 7:10 AM [facility] LABORATORY ([facility]) Calcium 8.8 8.5 - 10.2 03/19/2022 [place] mg/dL 7:10 AM [facility] LABORATORY ([facility]) Phosphorus 3.8 2.3 - 4.8 03/19/2022 [place] mg/dL 7:10 AM [facility] LABORATORY ([facility]) Albumin 3.4 (L) 3.5 - 5.0 03/19/2022 [place] g/dL 7:10 AM [facility] ([facility]) Estimated 16 (L) >=60 03/19/2022 [place] Glomerular mL/min/1.7 7:10 AM [facility] Filtration Rate 3 m2 LABORATORY (eGFR) ([facility]) Comment: Estimated GFR is calculated using the CK D-EPI equation. [employer] ([employer]) Guideli ne for Chronic Kidney Disease (CKD): >=60 Normal 45-59 Mildly to Moderately Decreased 30-44 Moderately to Severely Decreased 15-29 Severely Decreased <15 Kidney Failure Abnormalities present for at least 3 mon ths discriminate between chronic and acute disease. Specimen Anatomical Collection Method / Collection Time Recei pierre Time (Source) Location / Volume Laterality Blood (Venous) Venipuncture / 03/19/2022 6:36 03/19/20 22 6:38 Unknown AM PDT AM PDT Mustapha Leonard DO BKR LAB BLOOD ORDERABLES Performing Organization Address City/State/ZIP Code Phon e Number [facility] [address] [facility] ([facility]) [address] [id number] Magnesium (03/19/2022 6:36 AM PDT) P athologist Signature Magnesium 2.1 1.7 - 2.4 03/19/2022 [facility] mg/dL 7:10 AM [facility] ([facility]) Specimen Anatomical Collection Method / Collection Time Recei pierre Time (Source) Location / Volume Laterality Blood (Venous) Venipuncture / 03/19/2022 6:36 03/19/20 6:38 Unknown AM PDT AM PDT Mustapha Leonard DO BKR LAB BLOOD ORDERABLES Performing Organization Address City/State/ZIP Code Phon e Number [facility] [address] [facility] [place] LAB[place] ([facility]) WAY [phone] (ABNORMAL) POC Glucose (03/18/2022 8:21 PM PDT) P athologist Signature Glucose (POC) 326 (H) 65 - 99 03/18/2022 [place] mg/dL 8:28 PM PDT [facility] ([facility]) Specimen Anatomical Collection Method Collection Time Receive d Time (Source) Location / / Volume Laterality Blood 03/18/2022 8:21 PM 2 8:28 (Capillary) PDT PM PDT Keri Salas MD BKR LAB POINT OF CARE TEST D OCKED DEVICE UNSOLICITED RESULTS Performing Organization Address City/State/ZIP Code Phon e Number [facility] [address] [facility] [place] [place] [facility] ([employer]) [address] [phone] (ABNORMAL) POC Glucose (03/18/2022 5:19 PM PDT) P athologist Signature Glucose (POC) 402 (H) 65 - 99 03/18/2022 [place] mg/dL 5:36 PM PDT [facility] ([facility]) Specimen Anatomical Collection Method Collection Time Receive d Time (Source) Location / / Volume Laterality Blood 03/18/2022 5:19 PM 2 5:36 (Capillary) PDT PM PDT Keri Salas MD BKR LAB POINT OF CARE TEST D OCKED DEVICE UNSOLICITED RESULTS Performing Organization Address City/State/ZIP Code Phon e Number [facility] [address] [facility] [place] LAB[place]ORY ([employer]) [address] [phone] (ABNORMAL) POC Glucose (03/18/2022 12:55 PM PDT) P athologist Signature Glucose (POC) 351 (H) 65 - 99 03/18/2022 [place] mg/dL 1:12 PM PDT [facility] ([facility]) Specimen Anatomical Collection Method Collection Time Receive d Time (Source) Location / / Volume Laterality Blood 03/18/2022 12:55 03/18/2022 1:12 (Capillary) PM PDT PM PDT Keri KIMBROUGHR LAB POINT OF CARE TEST D OCKED DEVICE UNSOLICITED RESULTS Performing Organization Address City/State/ZIP Code Phon e Number [facility] [address] [facility] [place] LABORATORY ([facility]) WAY [phone] (ABNORMAL) POC Glucose (03/18/2022 9:04 AM PDT) P athologist Signature Glucose (POC) 445 (H) 65 - 99 03/18/2022 [place] mg/dL 9:14 AM PDT [facility] ([facility]) Specimen Anatomical Collection Method Collection Time Receive d Time (Source) Location / / Volume Laterality Blood 03/18/2022 9:04 AM 9:14 (Capillary) PDT AM PDT Keri KIMBROUGHR LAB POINT OF CARE TEST D OCKED DEVICE UNSOLICITED RESULTS Performing Organization Address City/State/ZIP Code Phon e Number [facility] [address] [facility], [place] LAB[place] ([facility]) WAY [phone] (ABNORMAL) CBC w/Auto Differential (03/18/2022 7:02 AM PDT) Patholo gist Method Time Signature WBC 6.56 4.00 - 03/18/2022 [place] 11.00 7:13 AM PDT [facility] x10E3/uL LABORATORY ([facility]) RBC 3.67 (L) 4.30 - 03/18/2022 [place] 5.70 7:13 AM PDT [facility] x10E6/uL LABORATORY ([facility]) Hemoglobin 10.2 (L) 13.7 - 03/18/2022 [place] 16.7 g/dL 7:13 AM [facility] ([facility]) Hematocrit 31.3 (L) 40.0 - 03/18/2022 [place] 50.0 % 7:13 AM PDT [facility] ([facility]) MCV 85.3 80.0 - 03/18/2022 [place] 100.0 fL 7:13 AM PDT [facility] ([facility]) MCH 27.8 27.0 - 03/18/2022 [place] 34.0 pg 7:13 AM PDT [facility] ([facility]) MCHC 32.6 31.5 - 03/18/2022 [place] 35.7 g/dL 7:13 AM PDT [facility] ([facility]) RDW 14.8 11.0 - 03/18/2022 [place] 15.0 % 7:13 AM PDT [facility]ORY ([facility]) Platelet Count 232 150 - 400 03/18/2022 [place] x10E3/uL 7:13 AM PDT [facility] ([facility]) MPV 10.8 9.4 - 03/18/2022 [place] 12.4 fL 7:13 AM PDT [facility] ([facility]) Neutrophils %, 67.8 40.0 - 03/18/2022 [place] Automated 80.0 % 7:13 AM PDT [facility] ([facility]) Immature 0.5 0.0 - 1.0 03/18/2022 [place] Granulocytes %, % 7:13 AM PDT [facility] Automated LABORATORY ([facility]) Lymphocytes %, 19.4 15.0 - 03/18/2022 [place] Automated 45.0 % 7:13 AM PDT [facility] ([facility]) Monocytes %, 7.3 0.0 - 03/18/2022 [place] Automated 12.0 % 7:13 AM PDT [facility] ([facility]) Eosinophils %, 4.1 0.0 - 7.0 03/18/2022 [place] Automated % 7:13 AM PDT [facility] ([facility]) Basophils %, 0.9 0.0 - 2.0 03/18/2022 [place] Automated % 7:13 AM PDT [facility] ([facility]) Neutrophils Abs, 4.45 2.00 - 03/18/2022 [place] Automated 7.30 7:13 AM PDT [facility] x10E3/uL LABORATORY ([facility]) Immature 0.03 0.00 - 03/18/2022 [place] Granulocyte Abs, 0.05 7:13 AM PDT [facility] Automated x10E3/uL LABORATORY ([facility]) Lymphocytes Abs, 1.27 1.00 - 03/18/2022 [place] Automated 3.40 7:13 AM PDT [facility] x10E3/uL LABORATORY ([facility]) Monocytes Abs, 0.48 0.00 - 03/18/2022 [place] Automated 0.80 7:13 AM PDT [facility] x10E3/uL LABORATORY ([facility]) Eosinophils Abs, 0.27 0.00 - 03/18/2022 [place] Automated 0.50 7:13 AM PDT [facility] x10E3/uL LABORATORY ([facility]) Basophils Abs, 0.06 0.00 - 03/18/2022 [place] Automated 0.10 7:13 AM PDT [facility] x10E3/uL LABORATORY ([facility]) nRBC %, 0.0 0.0 - 1.0 03/18/2022 [place] Automated /100 WBC 7:13 AM PDT [facility] ([facility]) nRBC Abs, 0.00 0.00 - 03/18/2022 [place] Automated 0.01 7:13 AM PDT [facility] x10E3/uL LABORATORY ([facility]) Specimen Anatomical Collection Method / Collection Time Recei pierre Time (Source) Location / Volume Laterality Blood (Venous) Venipuncture / 03/18/2022 7:02 03/18/20 22 7:06 Unknown AM PDT AM PDT Mustapha Leonard DO BKR LAB BLOOD ORDERABLES Performing Organization Address City/State/ZIP Code Phon e Number [facility] [address] [facility] [place] LABORATORY ([facility]) WAY [phone] (ABNORMAL) Renal Profile (03/18/2022 7:02 AM PDT) [facility] gist Method Time Signature Sodium 130 (L) 136 - 145 03/18/2022 [place] mmol/L 8:01 AM PDT [facility] ([facility]) Potassium 5.2 (H) 3.5 - 5.0 03/18/2022 [place] mmol/L 8:01 AM [facility] ([facility]) Chloride 93 (L) 99 - 109 03/18/2022 [place] mmol/L 8:01 AM PDT [facility] ([facility]) CO2 19 (L) 23 - 33 03/18/2022 [place] mmol/L 8:01 AM [facility] ([facility]) Anion Gap 18 (H) 5 - 16 03/18/2022 [place] ratio 8:01 AM [facility] ([facility]) Creatinine 4.17 (H) 0.50 - 03/18/2022 [place] 1.30 mg/dL 8:01 AM [facility] ([facility]) BUN 29 (H) 8 - 25 03/18/2022 [place] mg/dL 8:01 AM [facility] ([facility]) Glucose 521 (HH) 65 - 99 03/18/2022 [place] mg/dL 8:01 AM [facility] ([facility]) Calcium 8.6 8.5 - 10.2 03/18/2022 [place] mg/dL 8:01 AM [facility] ([facility]) Phosphorus 4.0 2.3 - 4.8 03/18/2022 [place] mg/dL 8:01 AM [facility] ([facility]) Albumin 3.3 (L) 3.5 - 5.0 03/18/2022 [place] g/dL 8:01 AM [facility] ([facility]) Estimated 18 (L) >=60 03/18/2022 [place] Glomerular mL/min/1.7 8:01 AM [facility] Filtration Rate 3 m2 LABORATORY (eGFR) ([facility]) Comment: Estimated GFR is calculated using the CK D-EPI equation. National Kidney Foundation (NKF) Guideli ne for Chronic Kidney Disease (CKD): >=60 Normal 45-59 Mildly to Moderately Decreased 30-44 Moderately to Severely Decreased 15-29 Severely Decreased <15 Kidney Failure Abnormalities present for at least 3 mon ths discriminate between chronic and acute disease. Specimen Anatomical Collection Method / Collection Time Recei pierre Time (Source) Location / Volume Laterality Blood (Venous) Venipuncture / 03/18/2022 7:02 03/18/20 7:06 Unknown AM PDT AM PDT Mustapha Leonard DO BKR LAB BLOOD ORDERABLES Performing Organization Address City/State/ZIP Code Phon e Number [facility] [address] [facility] [place] LABORATORY ([facility]) WAY [id number] Magnesium (03/18/2022 7:02 AM PDT) athologist Signature Magnesium 2.1 1.7 - 2.4 03/18/2022 [facility] [facility] mg/dL 7:31 AM PDT MAIN LABORATORY ([facility]) Specimen Anatomical Collection Method / Collection Time Recei pierre Time (Source) Location / Volume Laterality Blood (Venous) Venipuncture / 03/18/2022 7:02 03/18/20 7:06 Unknown AM PDT AM PDT Mustapha Leonard DO BKR LAB BLOOD ORDERABLES Performing Organization Address City/State/ZIP Code Phon e Number [facility] [address] [facility], [place] LAB[facility] ([facility]) WAY [phone] (ABNORMAL) POC Glucose (03/18/2022 6:06 AM PDT) athologist Signature Glucose (POC) 404 (H) 65 - 99 03/18/2022 [place] mg/dL 6:13 AM PDT [facility]ORY ([facility]) Specimen Anatomical Collection Method Collection Time Receive d Time (Source) Location / / Volume Laterality Blood 03/18/2022 6:06 AM 6:13 (Capillary) PDT AM PDT Shoshana JOHNSON LAB POINT OF CARE TEST D OCKED DEVICE UNSOLICITED RESULTS Performing Organization Address City/State/ZIP Code Phon e Number [facility] [address] [facility] [facility] ([facility]) WAY [phone] (ABNORMAL) POC Glucose (03/17/2022 11:42 PM PDT) athologist Signature Glucose (POC) 346 (H) 65 - 99 03/17/2022 [place] mg/dL 11:49 PM PDT [facility] LAB[facility]ORY ([facility]) Specimen Anatomical Collection Method Collection Time Receive d Time (Source) Location / / Volume Laterality Blood 03/17/2022 11:42 03/17/2022 (Capillary) PM PDT 11:49 PM PDT Shoshana JOHNSON LAB POINT OF CARE TEST D OCKED DEVICE UNSOLICITED RESULTS Performing Organization Address City/State/ZIP Code Phon e Number [facility] [address] [facility] [place] LABORATORY ([facility]) WAY [id number] (ABNORMAL) POC Glucose (03/17/2022 5:55 PM PDT) P athologist Signature Glucose (POC) 185 (H) 65 - 99 03/17/2022 [place] mg/dL 6:02 PM PDT [facility] LAB[facility]ORY ([facility]) Specimen Anatomical Collection Method Collection Time Receive d Time (Source) Location / / Volume Laterality Blood 03/17/2022 5:55 PM 2 6:02 (Capillary) PDT PM PDT Shoshana KIMBROUGHR LAB POINT OF CARE TEST D OCKED DEVICE UNSOLICITED RESULTS Performing Organization Address City/State/ZIP Code Phon e Number [facility] [address] [place], [place] LABORATORY ([employer]) [address] [phone] (ABNORMAL) POC Glucose (03/17/2022 3:13 PM PDT) P athologist Signature Glucose (POC) 186 (H) 65 - 99 03/17/2022 [place] mg/dL 3:20 PM PDT [facility]ORY ([facility]) Specimen Anatomical Collection Method Collection Time Receive d Time (Source) Location / / Volume Laterality Blood 03/17/2022 3:13 PM 2 3:20 (Capillary) PDT PM PDT Shoshana JOHNSON LAB POINT OF CARE TEST D OCKED DEVICE UNSOLICITED RESULTS Performing Organization Address City/State/ZIP Code Phon e Number [facility] [address] [facility] [place] LABORATORY ([employer]) WAY [phone] (ABNORMAL) POC Glucose (03/17/2022 12:02 PM PDT) P athologist Signature Glucose (POC) 190 (H) 65 - 99 03/17/2022 [place] mg/dL 12:09 PM PDT [facility] LAB[facility]ORY ([facility]) Specimen Anatomical Collection Method Collection Time Receive d Time (Source) Location / / Volume Laterality Blood 03/17/2022 12:02 03/17/2022 (Capillary) PM PDT 12:09 PM PDT Shoshana KIMBROUGHR LAB POINT OF CARE TEST D OCKED DEVICE UNSOLICITED RESULTS Performing Organization Address City/[facility]/ZIP Code Phon e Number [facility] [address] [facility] [place] LAB[place] ([facility]) WAY [id number] (ABNORMAL) POC Glucose (03/17/2022 9:17 AM PDT) athologist Signature Glucose (POC) 248 (H) 65 - 99 03/17/2022 [place] mg/dL 9:27 AM PDT [facility] LAB[facility]ATORY ([facility]) Specimen Anatomical Collection Method Collection Time Receive d Time (Source) Location / / Volume Laterality Blood 03/17/2022 9:17 AM 2 9:27 (Capillary) PDT AM PDT Shoshana JOHNSON LAB POINT OF CARE TEST D OCKED DEVICE UNSOLICITED RESULTS Performing Organization Address [facility]/ZIP Code Phon e [facility] [address] [facility] [place] LAB[place] ([facility]) WAY [phone] (ABNORMAL) POC Glucose (03/17/2022 6:21 AM PDT) athologist Signature Glucose (POC) 208 (H) 65 - 99 03/17/2022 [place] mg/dL 6:27 AM PDT [facility] LAB[facility]ORY ([facility]) Specimen Anatomical Collection Method Collection Time Receive d Time (Source) Location / / Volume Laterality Blood 03/17/2022 6:21 AM 2 6:27 (Capillary) PDT AM PDT Shoshana KIMBORUGHR LAB POINT OF CARE TEST D OCKED DEVICE UNSOLICITED RESULTS Performing Organization Address City/[facility]/ZIP Code Phon e Number [facility] [address] [facility] [place] LAB[place] ([facility]) WAY [phone] (ABNORMAL) CBC w/Auto Differential (03/17/2022 3:35 AM PDT) [facility] gist Method Time Signature WBC 8.47 4.00 - 03/17/2022 [place] 11.00 4:46 AM PDT [facility] x10E3/uL LABORATORY ([facility]) RBC 3.54 (L) 4.30 - 03/17/2022 [place] 5.70 4:46 AM PDT [facility] x10E6/uL LABORATORY ([facility]) Hemoglobin 9.9 (L) 13.7 - 03/17/2022 [place] 16.7 g/dL 4:46 AM [facility]ORY ([facility]) Hematocrit 30.3 (L) 40.0 - 03/17/2022 [place] 50.0 % 4:46 AM [facility] LAB[facility] ([facility]) MCV 85.6 80.0 - 03/17/2022 [place] 100.0 fL 4:46 AM [facility] ([facility]) MCH 28.0 27.0 - 03/17/2022 [place] 34.0 pg 4:46 AM [facility] LAB[facility]ORY ([facility]) MCHC 32.7 31.5 - 03/17/2022 [place] 35.7 g/dL 4:46 AM [facility]ORY ([facility]) RDW 15.0 11.0 - 03/17/2022 [place] 15.0 % 4:46 AM [facility] LAB[facility]ORY ([facility]) Platelet Count 263 150 - 400 03/17/2022 [place] x10E3/uL 4:46 AM [facility] LAB[facility]ORY ([facility]) MPV 10.9 9.4 - 03/17/2022 [place] 12.4 fL 4:46 AM [facility] LAB[facility]ORY ([facility]) Neutrophils %, 60.4 40.0 - 03/17/2022 [place] Automated 80.0 % 4:46 AM [facility] LAB[facility]ATORY ([facility]) Immature 0.4 0.0 - 1.0 03/17/2022 [place] Granulocytes %, % 4:46 AM [facility] Automated LABORATORY ([facility]) Lymphocytes %, 26.4 15.0 - 03/17/2022 [place] Automated 45.0 % 4:46 AM [facility] LAB[facility]ORY ([facility]) Monocytes %, 7.0 0.0 - 03/17/2022 [place] Automated 12.0 % 4:46 AM [facility] LAB[facility]ATORY ([facility]) Eosinophils %, 5.1 0.0 - 7.0 03/17/2022 [place] Automated % 4:46 AM [facility] LABORATORY ([facility]) Basophils %, 0.7 0.0 - 2.0 03/17/2022 [place] Automated % 4:46 AM PDT [facility] LABORATORY ([facility]) Neutrophils Abs, 5.12 2.00 - 03/17/2022 [place] Automated 7.30 4:46 AM PDT [facility] x10E3/uL LABORATORY ([facility]) Immature 0.03 0.00 - 03/17/2022 [place] Granulocyte Abs, 0.05 4:46 AM [facility] Automated x10E3/uL LABORATORY ([facility]) Lymphocytes Abs, 2.24 1.00 - 03/17/2022 [place] Automated 3.40 4:46 AM PDT [facility] x10E3/uL LABORATORY ([facility]) Monocytes Abs, 0.59 0.00 - 03/17/2022 [place] Automated 0.80 4:46 AM PDT [facility] x10E3/uL LABORATORY ([facility]) Eosinophils Abs, 0.43 0.00 - 03/17/2022 [place] Automated 0.50 4:46 AM PDT [facility] x10E3/uL LABORATORY ([facility]) Basophils Abs, 0.06 0.00 - 03/17/2022 [place] Automated 0.10 4:46 AM [facility] x10E3/uL LABORATORY ([facility]) nRBC %, 0.0 0.0 - 1.0 03/17/2022 [place] Automated /100 WBC 4:46 AM [facility] LABORATORY ([facility]) nRBC Abs, 0.00 0.00 - 03/17/2022 [place] Automated 0.01 4:46 AM [facility] x10E3/uL LABORATORY ([facility]) Specimen Anatomical Collection Method / Collection Time Recei pierre Time (Source) Location / Volume Laterality Blood (Venous) Venipuncture / 03/17/2022 3:35 03/17/20 22 4:23 Unknown AM PDT AM PDT Mustapha Leonard DO BKR LAB BLOOD ORDERABLES Performing Organization Address City/State/ZIP Code Phon e Number [facility] [address] [facility] [place] LABORATORY ([facility]) WAY [phone] (ABNORMAL) Renal Profile (03/17/2022 3:35 AM PDT) [facility] Method Time Signature Sodium 136 136 - 145 03/17/2022 [place] mmol/L 5:17 AM [facility] LAB[facility]ORY ([facility]) Potassium 4.0 3.5 - 5.0 03/17/2022 [place] mmol/L 5:17 AM [facility] LABORATORY ([facility]) Chloride 98 (L) 99 - 109 03/17/2022 [place] mmol/L 5:17 AM [facility] LAB[facility]ORY ([facility]) CO2 26 23 - 33 03/17/2022 [place] mmol/L 5:17 AM [facility] LABORATORY ([facility]) Anion Gap 12 5 - 16 03/17/2022 [place] ratio 5:17 AM [facility] LABORATORY ([facility]) Creatinine 4.35 (H) 0.50 - 03/17/2022 [place] 1.30 mg/dL 5:17 AM [facility] LABORATORY ([facility]) BUN 32 (H) 8 - 25 03/17/2022 [place] mg/dL 5:17 AM [facility] LABORATORY ([facility]) Glucose 220 (H) 65 - 99 03/17/2022 [place] mg/dL 5:17 AM [facility] LABORATORY ([facility]) Calcium 8.6 8.5 - 10.2 03/17/2022 [place] mg/dL 5:17 AM [facility] LABORATORY ([facility]) Phosphorus 3.1 2.3 - 4.8 03/17/2022 [place] mg/dL 5:17 AM [facility] LABORATORY ([facility]) Albumin 3.4 (L) 3.5 - 5.0 03/17/2022 [place] g/dL 5:17 AM [facility] ([facility]) Estimated 17 (L) >=60 03/17/2022 [place] Glomerular mL/min/1.7 5:17 AM [facility] Filtration Rate 3 m2 LABORATORY (eGFR) ([facility]) Comment: Estimated GFR is calculated using the CK D-EPI equation. [employer] (NK[employer]) Guideli ne for Chronic Kidney Disease (CKD): >=60 Normal 45-59 Mildly to Moderately Decreased 30-44 Moderately to Severely Decreased 15-29 Severely Decreased <15 Kidney Failure Abnormalities present for at least 3 mon ths discriminate between chronic and acute disease. Specimen Anatomical Collection Method / Collection Time Recei pierre Time (Source) Location / Volume Laterality Blood (Venous) Venipuncture / 03/17/2022 3:35 03/17/20 22 4:23 Unknown AM PDT AM PDT Mustapha NIETOR LAB BLOOD ORDERABLES Performing Organization Address City/[facility]/ZIP Code Phon e Number [facility] [address] [facility] [place] [facility] ([facility]) [address] [phone] Magnesium (03/17/2022 3:35 AM PDT) athologist Signature Magnesium 2.4 1.7 - 2.4 03/17/2022 [facility] [facility] mg/dL 4:55 AM PDT [facility] ([facility]) Specimen Anatomical Collection Method / Collection Time Recei pierre Time (Source) Location / Volume Laterality Blood (Venous) Venipuncture / 03/17/2022 3:35 03/17/20 22 4:23 Unknown AM PDT AM PDT Mustapha RUIZ LAB BLOOD ORDERABLES Performing Organization Address City/[facility]/ZIP Code Phon e [facility] [address] [facility] [place] [place] [facility] ([facility]) [address] [phone] (ABNORMAL) POC Glucose (03/17/2022 3:15 AM PDT) athologist Signature Glucose (POC) 195 (H) 65 - 99 03/17/2022 [place] mg/dL 3:22 AM PDT [facility] ([facility]) Specimen Anatomical Collection Method Collection Time Receive d Time (Source) Location / / Volume Laterality Blood 03/17/2022 3:15 AM 3:22 (Capillary) PDT AM PDT Shoshana Christianson MD BKR LAB POINT OF CARE TEST D OCKED DEVICE UNSOLICITED RESULTS Performing Organization Address City/State/ZIP Code Phon e Number [facility] [address] [facility], [place] LABORATORY ([employer]) WAY [phone] (ABNORMAL) POC Glucose (03/17/2022 12:07 AM PDT) athologist Signature Glucose (POC) 239 (H) 65 - 99 03/17/2022 [place] mg/dL 12:14 AM PDT [facility] LABORATORY ([facility]) Specimen Anatomical Collection Method Collection Time Receive d Time (Source) Location / / Volume Laterality Blood 03/17/2022 12:07 03/17/2022 (Capillary) AM PDT 12:14 AM PDT Shoshana JOHNSON LAB POINT OF CARE TEST D OCKED DEVICE UNSOLICITED RESULTS Performing Organization Address City/State/ZIP Code Phon e Number [facility] [address] [facility] [place], [place] LABORATORY ([facility]) WAY [phone] (ABNORMAL) POC Glucose (03/16/2022 8:45 PM PDT) P athologist Signature Glucose (POC) 240 (H) 65 - 99 03/16/2022 [place] mg/dL 8:51 PM PDT [facility] LABORATORY ([facility]) Specimen Anatomical Collection Method Collection Time Receive d Time (Source) Location / / Volume Laterality Blood 03/16/2022 8:45 PM 2 8:51 (Capillary) PDT PM PDT Shoshana JOHNSON LAB POINT OF CARE TEST D OCKED DEVICE UNSOLICITED RESULTS Performing Organization Address City/State/ZIP Code Phon e Number [facility] [address] [facility] [place] [place] [facility] ([facility]) WAY [phone] (ABNORMAL) POC Glucose (03/16/2022 6:38 PM PDT) P athologist Signature Glucose (POC) 183 (H) 65 - 99 03/16/2022 [place] mg/dL 6:45 PM PDT [facility] LABORATORY ([facility]) Specimen Anatomical Collection Method Collection Time Receive d Time (Source) Location / / Volume Laterality Blood 03/16/2022 6:38 PM 2 6:45 (Capillary) PDT PM PDT Shoshana KIMBROUGHR LAB POINT OF CARE TEST D OCKED DEVICE UNSOLICITED RESULTS Performing Organization Address City/State/ZIP Code Phon e Number [facility] [address] [facility] [place] LAB[place]ATORY ([facility]) WAY [phone] (ABNORMAL) POC Glucose (03/16/2022 3:26 PM PDT) athologist Signature Glucose (POC) 285 (H) 65 - 99 03/16/2022 [place] mg/dL 3:32 PM PDT [facility] LABORATORY ([facility]) Specimen Anatomical Collection Method Collection Time Receive d Time (Source) Location / / Volume Laterality Blood 03/16/2022 3:26 PM 2 3:32 (Capillary) PDT PM PDT Shoshana KIMBROUGHR LAB POINT OF CARE TEST D OCKED DEVICE UNSOLICITED RESULTS Performing Organization Address City/State/ZIP Code Phon e Number [facility] [address] [facility] [place], [place] LABORATORY ([facility]) WAY [phone] (ABNORMAL) POC Glucose (03/16/2022 12:29 PM PDT) athologist Signature Glucose (POC) 325 (H) 65 - 99 03/16/2022 [place] mg/dL 12:36 PM PDT [facility] LABORATORY ([facility]) Specimen Anatomical Collection Method Collection Time Receive d Time (Source) Location / / Volume Laterality Blood 03/16/2022 12:29 03/16/2022 (Capillary) PM PDT 12:36 PM PDT Shoshana KIMBROUGHR LAB POINT OF CARE TEST D OCKED DEVICE UNSOLICITED RESULTS Performing Organization Address City/State/ZIP Code Phon e Number [facility] [address] [facility] [place] LABORATORY ([facility]) WAY [phone] (ABNORMAL) POC Glucose (03/16/2022 9:21 AM PDT) athologist Signature Glucose (POC) 185 (H) 65 - 99 03/16/2022 [place] mg/dL 9:27 AM PDT [facility] LABORATORY ([facility]) Specimen Anatomical Collection Method Collection Time Receive d Time (Source) Location / / Volume Laterality Blood 03/16/2022 9:21 AM 9:27 (Capillary) PDT AM PDT Christopher Ma DO BKR LAB POINT OF CARE TEST D OCKED DEVICE UNSOLICITED RESULTS Performing Organization Address City/State/ZIP Code Phon e Number [facility] [address] [facility], [place] LABORATORY ([facility]) WAY [phone] (ABNORMAL) POC Glucose (03/16/2022 6:07 AM PDT) P athologist Signature Glucose (POC) 204 (H) 65 - 99 03/16/2022 [place] mg/dL 6:14 AM PDT [facility] LABORATORY ([facility]) Specimen Anatomical Collection Method Collection Time Receive d Time (Source) Location / / Volume Laterality Blood 03/16/2022 6:07 AM 6:14 (Capillary) PDT AM PDT Christopher Ma DO BKR LAB POINT OF CARE TEST D OCKED DEVICE UNSOLICITED RESULTS Performing Organization Address City/State/ZIP Code Phon e Number [facility] [address] [place], [place] LABORATORY ([facility]) WAY [phone] (ABNORMAL) CBC w/Auto Differential (03/16/2022 4:51 AM PDT) Patholo gist Method Time Signature WBC 13.12 (H) 4.00 - 03/16/2022 [place] 11.00 5:09 AM PDT [facility] x10E3/uL LABORATORY ([facility]) RBC 3.36 (L) 4.30 - 03/16/2022 [place] 5.70 5:09 AM PDT [facility] x10E6/uL LABORATORY ([facility]) Hemoglobin 9.4 (L) 13.7 - 03/16/2022 [place] 16.7 g/dL 5:09 AM PDT [facility] LABORATORY ([facility]) Hematocrit 28.8 (L) 40.0 - 03/16/2022 [place] 50.0 % 5:09 AM PDT [facility] LABORATORY ([facility]) MCV 85.7 80.0 - 03/16/2022 [place] 100.0 fL 5:09 AM PDT [facility] LABORATORY ([facility]) MCH 28.0 27.0 - 03/16/2022 [place] 34.0 pg 5:09 AM PDT [facility] LABORATORY ([facility]) MCHC 32.6 31.5 - 03/16/2022 [place] 35.7 g/dL 5:09 AM PDT [facility] LABORATORY ([facility]) RDW 15.3 (H) 11.0 - 03/16/2022 [place] 15.0 % 5:09 AM PDT [facility] LABORATORY ([facility]) Platelet Count 269 150 - 400 03/16/2022 [place] x10E3/uL 5:09 AM PDT [facility] LABORATORY ([facility]) MPV 10.5 9.4 - 03/16/2022 [place] 12.4 fL 5:09 AM PDT [facility] LABORATORY ([facility]) Neutrophils %, 75.6 40.0 - 03/16/2022 [place] Automated 80.0 % 5:09 AM PDT [facility] LABORATORY ([facility]) Immature 0.4 0.0 - 1.0 03/16/2022 [place] Granulocytes %, % 5:09 AM PDT [facility] Automated LABORATORY ([facility]) Lymphocytes %, 14.4 (L) 15.0 - 03/16/2022 [place] Automated 45.0 % 5:09 AM PDT [facility] LABORATORY ([facility]) Monocytes %, 5.9 0.0 - 03/16/2022 [place] Automated 12.0 % 5:09 AM PDT [facility] LABORATORY ([facility]) Eosinophils %, 3.2 0.0 - 7.0 03/16/2022 [place] Automated % 5:09 AM PDT [facility] LABORATORY ([facility]) Basophils %, 0.5 0.0 - 2.0 03/16/2022 [place] Automated % 5:09 AM PDT [facility] LABORATORY ([facility]) Neutrophils Abs, 9.92 (H) 2.00 - 03/16/2022 [place] Automated 7.30 5:09 AM PDT [facility] x10E3/uL LABORATORY ([facility]) Immature 0.05 0.00 - 03/16/2022 [place] Granulocyte Abs, 0.05 5:09 AM PDT [facility] Automated x10E3/uL LABORATORY ([facility]) Lymphocytes Abs, 1.89 1.00 - 03/16/2022 [place] Automated 3.40 5:09 AM PDT [facility] x10E3/uL LABORATORY ([facility]) Monocytes Abs, 0.78 0.00 - 03/16/2022 [place] Automated 0.80 5:09 AM PDT [facility] x10E3/uL LABORATORY ([facility]) Eosinophils Abs, 0.42 0.00 - 03/16/2022 [place] Automated 0.50 5:09 AM [facility] x10E3/uL LABORATORY ([facility]) Basophils Abs, 0.06 0.00 - 03/16/2022 [place] Automated 0.10 5:09 AM [facility] x10E3/uL LABORATORY ([facility]) nRBC %, 0.0 0.0 - 1.0 03/16/2022 [place] Automated /100 WBC 5:09 AM [facility] LABORATORY ([facility]) nRBC Abs, 0.00 0.00 - 03/16/2022 [place] Automated 0.01 5:09 AM [facility] x10E3/uL LABORATORY ([facility]) Specimen Anatomical Collection Method / Collection Time Recei pierre Time (Source) Location / Volume Laterality Blood (Venous) Venipuncture / 03/16/2022 4:51 03/16/20 22 5:01 Unknown AM PDT AM PDT Mustapha Leonard DO BKR LAB BLOOD ORDERABLES Performing Organization Address City/State/ZIP Code Phon e Number [facility] [address] [facility] ([facility]) WAY [phone] (ABNORMAL) Renal Profile (03/16/2022 4:50 AM PDT) [facility] gist Method Time Signature Sodium 135 (L) 136 - 145 03/16/2022 [place] mmol/L 5:40 AM [facility] LABORATORY ([facility]) Potassium 4.4 3.5 - 5.0 03/16/2022 [place] mmol/L 5:40 AM [facility] LABORATORY ([facility]) Chloride 100 99 - 109 03/16/2022 [place] mmol/L 5:40 AM [facility] LABORATORY ([facility]) CO2 25 23 - 33 03/16/2022 [place] mmol/L 5:40 AM [facility] LABORATORY ([facility]) Anion Gap 10 5 - 16 03/16/2022 [place] ratio 5:40 AM [facility] LABORATORY ([facility]) Creatinine 4.75 (H) 0.50 - 03/16/2022 [place] 1.30 mg/dL 5:40 AM [facility] LABORATORY ([facility]) BUN 39 (H) 8 - 25 03/16/2022 [place] mg/dL 5:40 AM [facility] LABORATORY ([facility]) Glucose 215 (H) 65 - 99 03/16/2022 [place] mg/dL 5:40 AM [facility] LABORATORY ([facility]) Calcium 8.4 (L) 8.5 - 10.2 03/16/2022 [place] mg/dL 5:40 AM [facility] LABORATORY ([facility]) Phosphorus 3.0 2.3 - 4.8 03/16/2022 [place] mg/dL 5:40 AM [facility] LABORATORY ([facility]) Albumin 2.8 (L) 3.5 - 5.0 03/16/2022 [place] g/dL 5:40 AM [facility] LABORATORY ([facility]) Estimated 16 (L) >=60 03/16/2022 [place] Glomerular mL/min/1.7 5:40 AM [facility] Filtration Rate 3 m2 LABORATORY (eGFR) ([facility]) Comment: Estimated GFR is calculated using the CK D-EPI equation. National Kidney [employer] (NKF) Guideli ne for Chronic Kidney Disease (CKD): >=60 Normal 45-59 Mildly to Moderately Decreased 30-44 Moderately to Severely Decreased 15-29 Severely Decreased <15 Kidney Failure Abnormalities present for at least 3 mon ths discriminate between chronic and acute disease. Specimen Anatomical Collection Method / Collection Time Recei pierre Time (Source) Location / Volume Laterality Blood (Venous) Venipuncture / 03/16/2022 4:50 03/16/20 22 5:01 Unknown AM PDT AM PDT Mustapha RUZI LAB BLOOD ORDERABLES Performing Organization Address City/State/ZIP Code Phon e Number [facility] [address] [facility] [place] [facility] LABORATORY ([facility]) WAY [phone] (ABNORMAL) Magnesium (03/16/2022 4:50 AM PDT) P athologist Signature Magnesium 2.6 (H) 1.7 - 2.4 03/16/2022 [facility] mg/dL 5:40 AM PDT MAIN LABORATORY ([facility]) Specimen Anatomical Collection Method / Collection Time Recei pierre Time (Source) Location / Volume Laterality Blood (Venous) Venipuncture / 03/16/2022 4:50 03/16/20 22 5:01 Unknown AM PDT AM PDT Mustapha Leonard DO BKR LAB BLOOD ORDERABLES Performing Organization Address City/[facility]/ZIP Code Phon e Number [facility] [address] [facility] [place] [facility] ([facility]) WAY [phone] (ABNORMAL) POC Glucose (03/16/2022 3:04 AM PDT) P athologist Signature Glucose (POC) 181 (H) 65 - 99 03/16/2022 [place] mg/dL 3:12 AM PDT [facility] LABORATORY ([facility]) Specimen Anatomical Collection Method Collection Time Receive d Time (Source) Location / / Volume Laterality Blood 03/16/2022 3:04 AM 3:12 (Capillary) PDT AM PDT Christopher Ma DO BKR LAB POINT OF CARE TEST D OCKED DEVICE UNSOLICITED RESULTS Performing Organization Address [facility]/ZIP Code Phon e Number [facility] [address] [facility] [place] [place] LAB[facility]ORY ([employer]) [address] [phone] (ABNORMAL) POC Glucose (03/15/2022 11:35 PM PDT) P athologist Signature Glucose (POC) 143 (H) 65 - 99 03/15/2022 [place] mg/dL 11:42 PM PDT [facility] LABORATORY ([facility]) Specimen Anatomical Collection Method Collection Time Receive d Time (Source) Location / / Volume Laterality Blood 03/15/2022 11:35 03/15/2022 (Capillary) PM PDT 11:42 PM PDT Christopher Ma DO BKR LAB POINT OF CARE TEST D OCKED DEVICE UNSOLICITED RESULTS Performing Organization Address City/[facility]/ZIP Code Phon e Number [facility] [address] [facility] [place], [place] LABORATORY ([employer]) WAY [phone] (ABNORMAL) POC Glucose (03/15/2022 8:20 PM PDT) P athologist Signature Glucose (POC) 221 (H) 65 - 99 03/15/2022 [place] mg/dL 8:27 PM PDT [facility] LABORATORY ([facility]) Specimen Anatomical Collection Method Collection Time Receive d Time (Source) Location / / Volume Laterality Blood 03/15/2022 8:20 PM 2 8:27 (Capillary) PDT PM PDT Christopher Ma DO BKR LAB POINT OF CARE TEST D OCKED DEVICE UNSOLICITED RESULTS Performing Organization Address City/[facility]/ZIP Code Phon e [facility] [address] [facility] [place] [facility] ([facility]) WAY [phone] (ABNORMAL) POC Glucose (03/15/2022 6:42 PM PDT) P athologist Signature Glucose (POC) 191 (H) 65 - 99 03/15/2022 [place] mg/dL 6:49 PM PDT [facility] LABORATORY ([facility]) Specimen Anatomical Collection Method Collection Time Receive d Time (Source) Location / / Volume Laterality Blood 03/15/2022 6:42 PM 2 6:48 (Capillary) PDT PM PDT Christopher Ma DO BKR LAB POINT OF CARE TEST D OCKED DEVICE UNSOLICITED RESULTS Performing Organization Address City/[facility]/ZIP Code Phon e [facility] [address] [facility] [place] [place] [facility] ([facility]) WAY [phone] (ABNORMAL) POC Glucose (03/15/2022 4:07 PM PDT) P athologist Signature Glucose (POC) 187 (H) 65 - 99 03/15/2022 [place] mg/dL 4:16 PM PDT [facility] LABORATORY ([facility]) Specimen Anatomical Collection Method Collection Time Receive d Time (Source) Location / / Volume Laterality Blood 03/15/2022 4:07 PM 2 4:16 (Capillary) PDT PM PDT Christopher Ma DO BKR LAB POINT OF CARE TEST D OCKED DEVICE UNSOLICITED RESULTS Performing Organization Address City/State/ZIP Code Phon e [facility] [address] [facility] [place] [place] LABORATORY ([facility]) WAY [phone] (ABNORMAL) POC Glucose (03/15/2022 1:22 PM PDT) P athologist Signature Glucose (POC) 236 (H) 65 - 99 03/15/2022 [place] mg/dL 1:29 PM PDT [facility] LABORATORY ([facility]) Specimen Anatomical Collection Method Collection Time Receive d Time (Source) Location / / Volume Laterality Blood 03/15/2022 1:22 PM 2 1:28 (Capillary) PDT PM PDT Christopher NIETOR LAB POINT OF CARE TEST D OCKED DEVICE UNSOLICITED RESULTS Performing Organization Address City/State/ZIP Code Phon e Number [facility] [address] [facility] [place] [place] [facility] ([facility]) WAY [phone] (ABNORMAL) POC Glucose (03/15/2022 9:01 AM PDT) P athologist Signature Glucose (POC) 242 (H) 65 - 99 03/15/2022 [place] mg/dL 9:09 AM PDT [facility] LABORATORY ([facility]) Specimen Anatomical Collection Method Collection Time Receive d Time (Source) Location / / Volume Laterality Blood 03/15/2022 9:01 AM 2 9:08 (Capillary) PDT AM PDT Christopher Ma DO BKR LAB POINT OF CARE TEST D OCKED DEVICE UNSOLICITED RESULTS Performing Organization Address City/State/ZIP Code Phon e Number [facility] [address] [facility] [facility] [place] [facility] ([facility]) WAY [phone] (ABNORMAL) POC Glucose (03/15/2022 6:05 AM PDT) P athologist Signature Glucose (POC) 237 (H) 65 - 99 03/15/2022 [place] mg/dL 6:13 AM PDT [facility] LABORATORY ([facility]) Specimen Anatomical Collection Method Collection Time Receive d Time (Source) Location / / Volume Laterality Blood 03/15/2022 6:05 AM 2 6:13 (Capillary) PDT AM PDT Christopher Ma DO BKR LAB POINT OF CARE TEST D OCKED DEVICE UNSOLICITED RESULTS Performing Organization Address City/State/ZIP Code Phon e Number [facility] [address] [facility] [place] [facility] ([facility]) WAY [phone] (ABNORMAL) CBC w/Auto Differential (03/15/2022 4:47 AM PDT) P athologist Signature WBC 17.05 (H) 4.00 - 03/15/2022 [place] [facility] 11.00 5:41 AM PDT MAIN LABORATORY x10E3/uL ([facility]) RBC 3.89 (L) 4.30 - 03/15/2022 [place] [facility] 5.70 5:41 AM PDT MAIN LABORATORY x10E6/uL ([facility]) Hemoglobin 10.9 (L) 13.7 - 03/15/2022 [place] [facility] 16.7 g/dL 5:41 AM PDT MAIN LABORATORY ([facility]) Hematocrit 34.4 (L) 40.0 - 03/15/2022 [place] [facility] 50.0 % 5:41 AM PDT MAIN LABORATORY ([facility]) MCV 88.4 80.0 - 03/15/2022 [place] [facility] 100.0 fL 5:41 AM PDT MAIN LABORATORY ([facility]) Comment: Delta most likely due to clinic ally significant change in patient status subject to provider interpretation. MCH 28.0 27.0 - 34.0 03/15/2022 5:41 AM [place] PDT [facility] LABORATORY ([facility]) MCHC 31.7 31.5 - 35.7 03/15/2022 5:41 AM [place] g/dL PDT MAIN LABORATORY ([facility]) RDW 15.8 (H) 11.0 - 15.0 % 03/15/2022 5:41 AM [facility] PDT MAIN LABORATORY ([facility]) Platelet Count 321 150 - 400 03/15/2022 5:41 AM [employer] [facility] x10E3/uL PDT MAIN LABORATORY ([facility]) MPV 10.5 9.4 - 12.4 fL 03/15/2022 5:41 AM [facility] PDT MAIN LABORATORY ([facility]) Neutrophils %, 83.2 (H) 40.0 - 80.0 % 03/15/2022 5:41 AM [facility] Automated PDT MAIN LABORATORY ([facility]) Immature Granulocytes 0.4 0.0 - 1.0 % 03/15/2022 5:41 AM [place] [facility] %, Automated PDT MAIN LABORATORY ([facility]) Lymphocytes %, 7.2 (L) 15.0 - 45.0 % 03/15/2022 5:41 AM [facility] Automated PDT MAIN LABORATORY ([facility]) Monocytes %, 8.3 0.0 - 12.0 % 03/15/2022 5:41 AM [facility] Automated PDT MAIN LABORATORY ([facility]) Eosinophils %, 0.4 0.0 - 7.0 % 03/15/2022 5:41 AM [facility] Automated PDT MAIN LABORATORY ([facility]) Basophils %, 0.5 0.0 - 2.0 % 03/15/2022 5:41 AM [facility] Automated PDT MAIN LABORATORY ([facility]) Neutrophils Abs, 14.20 (H) 2.00 - 7.30 03/15/2022 5:41 AM [facility] Automated x10E3/uL PDT MAIN LABORATORY ([facility]) Immature Granulocyte 0.06 (H) 0.00 - 0.05 03/15/2022 5:41 A M [place] [facility] Abs, Automated x10E3/uL PDT MAIN LABORATORY ([facility]) Lymphocytes Abs, 1.23 1.00 - 3.40 03/15/2022 5:41 AM [facility] Automated x10E3/uL PDT MAIN LABORATORY ([facility]) Monocytes Abs, 1.41 (H) 0.00 - 0.80 03/15/2022 5:41 AM [facility] Automated x10E3/uL PDT MAIN LABORATORY ([facility]) Eosinophils Abs, 0.07 0.00 - 0.50 03/15/2022 5:41 AM [facility] Automated x10E3/uL PDT MAIN LABORATORY ([facility]) Basophils Abs, 0.08 0.00 - 0.10 03/15/2022 5:41 AM [facility] Automated x10E3/uL PDT MAIN LABORATORY ([facility]) nRBC %, Automated 0.0 0.0 - 1.0 03/15/2022 5:41 AM [facility] /100 WBC PDT MAIN LABORATORY ([facility]) nRBC Abs, Automated 0.00 0.00 - 0.01 03/15/2022 5:41 AM [place] x10E3/uL PDT MAIN LABORATORY ([facility]) Specimen Anatomical Collection Method / Collection Time Recei pierre Time (Source) Location / Volume Laterality Blood (Venous) Venipuncture / 03/15/2022 4:47 03/15/20 22 5:27 Unknown AM PDT AM PDT Mustapha Leonard DO BKR LAB BLOOD ORDERABLES Performing Organization Address City/State/ZIP Code Phon e Number [facility] [address] [facility] [place] [place] [facility] ([facility]) [address] [id number] (ABNORMAL) Renal Profile (03/15/2022 4:47 AM PDT) [facility] Method Time Signature Sodium 144 136 - 145 03/15/2022 [place] mmol/L 6:07 AM [facility] ([facility]) Potassium 4.0 3.5 - 5.0 03/15/2022 [place] mmol/L 6:07 AM [facility] ([facility]) Chloride 97 (L) 99 - 109 03/15/2022 [place] mmol/L 6:07 AM [facility] ([facility]) CO2 30 23 - 33 03/15/2022 [place] mmol/L 6:07 AM [facility] ([facility]) Anion Gap 17 (H) 5 - 16 03/15/2022 [place] ratio 6:07 AM [facility] ([facility]) Creatinine 5.47 (H) 0.50 - 03/15/2022 [place] 1.30 mg/dL 6:07 AM [facility] ([facility]) BUN 55 (H) 8 - 25 03/15/2022 [place] mg/dL 6:07 AM [facility] ([facility]) Glucose 206 (H) 65 - 99 03/15/2022 [place] mg/dL 6:07 AM [facility] ([facility]) Calcium 8.8 8.5 - 10.2 03/15/2022 [place] mg/dL 6:07 AM [facility] ([facility]) Phosphorus 3.4 2.3 - 4.8 03/15/2022 [place] mg/dL 6:07 AM [facility] LABORATORY ([facility]) Albumin 3.8 3.5 - 5.0 03/15/2022 [place] g/dL 6:07 AM [facility] ([facility]) Estimated 13 (L) >=60 03/15/2022 [place] Glomerular mL/min/1.7 6:07 AM PDT HEALTH MAIN Filtration Rate 3 m2 LABORATORY (eGFR) ([facility]) Comment: Estimated GFR is calculated using the CK D-EPI equation. National Kidney Foundation (NKF) Guideli ne for Chronic Kidney Disease (CKD): >=60 Normal 45-59 Mildly to Moderately Decreased 30-44 Moderately to Severely Decreased 15-29 Severely Decreased <15 Kidney Failure Abnormalities present for at least 3 mon ths discriminate between chronic and acute disease. Specimen Anatomical Collection Method / Collection Time Recei pierre Time (Source) Location / Volume Laterality Blood (Venous) Venipuncture / 03/15/2022 4:47 03/15/20 22 5:27 Unknown AM PDT AM PDT Mustapha Leonard DO BKR LAB BLOOD ORDERABLES Performing Organization Address City/State/ZIP Code Phon e Number [facility] [address] [facility], [place] LABORATORY ([facility]) WAY [phone] (ABNORMAL) Magnesium (03/15/2022 4:47 AM PDT) P athologist Signature Magnesium 3.5 (HH) 1.7 - 2.4 03/15/2022 [place] [facility] mg/dL 6:15 AM PDT MAIN LABORATORY ([facility]) Specimen Anatomical Collection Method / Collection Time Recei pierre Time (Source) Location / Volume Laterality Blood (Venous) Venipuncture / 03/15/2022 4:47 03/15/20 22 5:27 Unknown AM PDT AM PDT Mustapha NIETOR LAB BLOOD ORDERABLES Performing Organization Address City/State/ZIP Code Phon e Number [facility] [address] [facility], [place] LABORATORY ([facility]) WAY [phone] (ABNORMAL) POC Glucose (03/15/2022 3:00 AM PDT) P athologist Signature Glucose (POC) 168 (H) 65 - 99 03/15/2022 [place] mg/dL 3:08 AM PDT HEALTH MAIN LABORATORY ([facility]) Specimen Anatomical Collection Method Collection Time Receive d Time (Source) Location / / Volume Laterality Blood 03/15/2022 3:00 AM 3:08 (Capillary) PDT AM PDT Christopher Ma DO BKR LAB POINT OF CARE TEST D OCKED DEVICE UNSOLICITED RESULTS Performing Organization Address City/[facility]/ZIP Code Phon e [facility] [address] [facility] [place] [facility] ([employer]) [address] [phone] (ABNORMAL) POC Glucose (03/14/2022 11:56 PM PDT) P athologist Signature Glucose (POC) 226 (H) 65 - 99 03/15/2022 [place] mg/dL 12:13 AM PDT [facility] LABORATORY ([facility]) Specimen Anatomical Collection Method Collection Time Receive d Time (Source) Location / / Volume Laterality Blood 03/14/2022 11:56 03/15/2022 (Capillary) PM PDT 12:13 AM PDT Christopher Ma DO BKR LAB POINT OF CARE TEST D OCKED DEVICE UNSOLICITED RESULTS Performing Organization Address [facility]/ZIP Code Phon e Number [facility] [address] [facility] [place] [place] [facility] ([employer]) [address] [phone] (ABNORMAL) POC Glucose (03/14/2022 9:05 PM PDT) P athologist Signature Glucose (POC) 159 (H) 65 - 99 03/14/2022 [place] mg/dL 9:22 PM PDT [facility] LABORATORY ([facility]) Specimen Anatomical Collection Method Collection Time Receive d Time (Source) Location / / Volume Laterality Blood 03/14/2022 9:05 PM 9:21 (Capillary) PDT PM PDT Christopher Ma DO BKR LAB POINT OF CARE TEST D OCKED DEVICE UNSOLICITED RESULTS Performing Organization Address City/[facility]/ZIP Code Phon e Number [facility] [address] [facility] [place] [place] [facility] ([employer]) [address] [phone] (ABNORMAL) POC Glucose (03/14/2022 5:59 PM PDT) P athologist Signature Glucose (POC) 222 (H) 65 - 99 03/14/2022 [place] mg/dL 6:05 PM PDT [facility] LABORATORY ([facility]) Specimen Anatomical Collection Method Collection Time Receive d Time (Source) Location / / Volume Laterality Blood 03/14/2022 5:59 PM 2 6:05 (Capillary) PDT PM PDT Christopher Ma DO BKR LAB POINT OF CARE TEST D OCKED DEVICE UNSOLICITED RESULTS Performing Organization Address City/State/ZIP Code Phon e Faustino [facility] [address] [facility] [place] [place] LAB[facility]ORY ([employer]) [address] [phone] (ABNORMAL) POC Glucose (03/14/2022 3:24 PM PDT) P athologist Signature Glucose (POC) 121 (H) 65 - 99 03/14/2022 [place] mg/dL 3:31 PM PDT [facility] LABORATORY ([facility]) Specimen Anatomical Collection Method Collection Time Receive d Time (Source) Location / / Volume Laterality Blood 03/14/2022 3:24 PM 2 3:31 (Capillary) PDT PM PDT Christopher Ma DO BKR LAB POINT OF CARE TEST D OCKED DEVICE UNSOLICITED RESULTS Performing Organization Address City/[facility]/ZIP Code Phon e Faustino [facility] [address] [facility] [place] [place] [facility] ([employer]) [address] [phone] (ABNORMAL) POC Glucose (03/14/2022 11:54 AM PDT) P athologist Signature Glucose (POC) 254 (H) 65 - 99 03/14/2022 [place] mg/dL 12:04 PM PDT [facility] LABORATORY ([facility]) Specimen Anatomical Collection Method Collection Time Receive d Time (Source) Location / / Volume Laterality Blood 03/14/2022 11:54 03/14/2022 (Capillary) AM PDT 12:04 PM PDT Christopher Ma DO BKR LAB POINT OF CARE TEST D OCKED DEVICE UNSOLICITED RESULTS Performing Organization Address City/State/ZIP Code Phon e Faustino [facility] [address] [facility] [place] LABORATORY ([employer]) WAY [phone] (ABNORMAL) POC Glucose (03/14/2022 9:08 AM PDT) P athologist Signature Glucose (POC) 308 (H) 65 - 99 03/14/2022 [place] mg/dL 9:14 AM PDT [facility] LABORATORY ([facility]) Specimen Anatomical Collection Method Collection Time Receive d Time (Source) Location / / Volume Laterality Blood 03/14/2022 9:08 AM 2 9:14 (Capillary) PDT AM PDT Christopher Ma DO BKR LAB POINT OF CARE TEST D OCKED DEVICE UNSOLICITED RESULTS Performing Organization Address City/State/ZIP Code Phon e Number [facility] [address] [facility] ID LABORATORY ([facility]) WAY [phone] (ABNORMAL) POC Glucose (03/14/2022 7:21 AM PDT) P athologist Signature Glucose (POC) 194 (H) 65 - 99 03/14/2022 [place] mg/dL 7:36 AM PDT [facility] LABORATORY ([facility]) Specimen Anatomical Collection Method Collection Time Receive d Time (Source) Location / / Volume Laterality Blood 03/14/2022 7:21 AM 2 7:36 (Capillary) PDT AM PDT Christopher NIETOR LAB POINT OF CARE TEST D OCKED DEVICE UNSOLICITED RESULTS Performing Organization Address City/State/ZIP Code Phon e Number [facility] [address] [facility], [place] LABORATORY ([facility]) WAY [phone] (ABNORMAL) Blood Gas, Venous (03/14/2022 5:32 AM PDT) Patholo gist Method Time Signature pH, Venous 7.525 (H) 7.310 - 03/14/2022 [place] 7.410 5:44 AM [facility] ([facility]) pCO2, Venous 50.8 41.0 - 03/14/2022 [place] 51.0 5:44 AM [facility] mm/Hg LABORATORY ([facility]) pO2, Venous 59 (H) 37 - 43 03/14/2022 [place] mm/Hg 5:44 AM [facility] ([facility]) Total Carbon 43.3 (H) 23.0 - 03/14/2022 [place] Dioxide (tCO2), 33.0 5:44 AM [facility] Venous mmol/L LABORATORY ([facility]) Bicarbonate 41.8 (H) 23.0 - 03/14/2022 [place] (HCO3), Venous 29.0 5:44 AM [facility] mmol/L LABORATORY ([facility]) Oxygen 89.6 (H) 70.0 - 03/14/2022 [place] Saturation 76.0 % 5:44 AM [facility] (SO2), Venous LABORATORY ([facility]) Base Excess 16.4 (H) 0.0 - 2.0 03/14/2022 [place] (BE), Venous meq/L 5:44 AM [facility] LABORATORY ([facility]) Specimen Anatomical Collection Method / Collection Time Recei pierre Time (Source) Location / Volume Laterality Blood (Venous) Venipuncture / 03/14/2022 5:32 03/14/20 5:37 Unknown AM PDT AM PDT Az Oakley DO KIMBROUGHR LAB BLOOD ORDERABLES Performing Organization Address City/State/ZIP Code Phon e Number [facility] [address] [facility] [place] LABORATORY ([facility]) WAY [phone] (ABNORMAL) CBC (03/14/2022 5:32 AM PDT) [facility] gist Method Time Signature WBC 17.05 (H) 4.00 - 03/14/2022 [place] 11.00 5:41 AM [facility] x10E3/uL LABORATORY ([facility]) RBC 3.89 (L) 4.30 - 03/14/2022 [place] 5.70 5:41 AM [facility] x10E6/uL LABORATORY ([facility]) Hemoglobin 11.0 (L) 13.7 - 03/14/2022 [place] 16.7 g/dL 5:41 AM [facility] LABORATORY ([facility]) Hematocrit 32.2 (L) 40.0 - 03/14/2022 [place] 50.0 % 5:41 AM [facility] LABORATORY ([facility]) MCV 82.8 80.0 - 03/14/2022 [place] 100.0 fL 5:41 AM [facility] LABORATORY ([facility]) MCH 28.3 27.0 - 03/14/2022 [place] 34.0 pg 5:41 AM [facility] LAB[facility]ORY ([facility]) MCHC 34.2 31.5 - 03/14/2022 [place] 35.7 g/dL 5:41 AM [facility] LABOR[facility] ([facility]) RDW 15.8 (H) 11.0 - 03/14/2022 [place] 15.0 % 5:41 AM [facility] LABORATORY ([facility]) Platelet Count 332 150 - 400 03/14/2022 [place] x10E3/uL 5:41 AM [facility] LABOR[facility]ORY ([facility]) MPV 10.3 9.4 - 03/14/2022 [place] 12.4 fL 5:41 AM [facility] LAB[facility] ([facility]) Specimen Anatomical Collection Method / Collection Time Recei pierre Time (Source) Location / Volume Laterality Blood (Venous) Venipuncture / 03/14/2022 5:32 03/14/20 22 5:38 Unknown AM PDT AM PDT Az NIETOR LAB BLOOD ORDERABLES Performing Organization Address City/[facility]/ZIP Code Phon e Number [facility] [address] [facility] [place] LABORATORY ([facility]) WAY [phone] (ABNORMAL) Magnesium (03/14/2022 5:32 AM PDT) P athologist Signature Magnesium 3.9 (HH) 1.7 - 2.4 03/14/2022 [facility] mg/dL 6:30 AM [facility] LABORATORY ([facility]) Specimen Anatomical Collection Method / Collection Time Recei pierre Time (Source) Location / Volume Laterality Blood (Venous) Venipuncture / 03/14/2022 5:32 03/14/20 22 5:38 Unknown AM PDT AM PDT Az RUIZ LAB BLOOD ORDERABLES Performing Organization Address City/State/ZIP Code Phon e Number [facility] [address] [facility] [place] LABORATORY ([facility]) WAY [id number] (ABNORMAL) Comprehensive Metabolic Panel (03/14/2022 5:32 AM PDT) Patholo gist Method Time Signature Sodium 137 136 - 145 03/14/2022 [place] mmol/L 6:10 AM [facility] LAB[facility] ([facility]) Potassium 3.5 3.5 - 5.0 03/14/2022 [place] mmol/L 6:10 AM [facility] LAB[facility] ([facility]) Chloride 83 (L) 99 - 109 03/14/2022 [place] mmol/L 6:10 AM [facility] LAB[facility] ([facility]) CO2 39 (H) 23 - 33 03/14/2022 [place] mmol/L 6:10 AM [facility] LAB[facility] ([facility]) Anion Gap 15 5 - 16 03/14/2022 [place] ratio 6:10 AM [facility] LABOR[facility]ORY ([facility]) Creatinine 5.75 (H) 0.50 - 03/14/2022 [place] 1.30 mg/dL 6:10 AM [facility] LAB[facility] ([facility]) BUN 63 (H) 8 - 25 03/14/2022 [place] mg/dL 6:10 AM [facility] LAB[facility] ([facility]) Glucose 259 (H) 65 - 99 03/14/2022 [place] mg/dL 6:10 AM [facility] LAB[facility] ([facility]) Calcium 8.3 (L) 8.5 - 10.2 03/14/2022 [place] mg/dL 6:10 AM [facility] LABORATORY ([facility]) Total Protein 6.5 6.3 - 8.0 03/14/2022 [place] g/dL 6:10 AM [facility] LABORATORY ([facility]) Albumin 3.8 3.5 - 5.0 03/14/2022 [place] g/dL 6:10 AM [facility] LAB[facility]ORY ([facility]) Globulin 2.7 1.8 - 3.5 03/14/2022 [place] g/dL 6:10 AM [facility] LAB[facility] ([facility]) Albumin/Globuli 1.4 1.0 - 2.7 03/14/2022 [place] n Ratio ratio 6:10 AM [facility] LAB[facility]ORY ([facility]) Total Bilirubin 0.7 0.1 - 1.5 03/14/2022 [place] mg/dL 6:10 AM [facility] LABORATORY ([facility]) ALT 9 (L) 10 - 65 03/14/2022 [place] U/L 6:10 AM [facility] LABORATORY ([facility]) Alk Phos 111 35 - 115 03/14/2022 [place] U/L 6:10 AM [facility] LABORATORY ([facility]) AST 19 10 - 45 03/14/2022 [place] U/L 6:10 AM [facility] LABORATORY ([facility]) Estimated 12 (L) >=60 03/14/2022 [place] Glomerular mL/min/1.7 6:10 AM [facility] Filtration Rate 3 m2 LABORATORY (eGFR) ([facility]) Comment: Estimated GFR is calculated using the CK D-EPI equation. National Kidney Foundation (NKF) Guideli ne for Chronic Kidney Disease (CKD): >=60 Normal 45-59 Mildly to Moderately Decreased 30-44 Moderately to Severely Decreased 15-29 Severely Decreased <15 Kidney Failure Abnormalities present for at least 3 mon ths discriminate between chronic and acute disease. Specimen Anatomical Collection Method / Collection Time Recei pierre Time (Source) Location / Volume Laterality Blood (Venous) Venipuncture / 03/14/2022 5:32 03/14/20 22 5:38 Unknown AM PDT AM PDT Az RUIZ LAB BLOOD ORDERABLES Performing Organization Address City/[facility]/ZIP Code Phon e Number [facility] [address] [facility] [place] LABORATORY ([facility]) WAY [phone] (ABNORMAL) POC Glucose (03/14/2022 4:57 AM PDT) P athologist Signature Glucose (POC) 206 (H) 65 - 99 03/14/2022 [place] mg/dL 5:05 AM PDT [facility] LABORATORY ([facility]) Specimen Anatomical Collection Method Collection Time Receive d Time (Source) Location / / Volume Laterality Blood 03/14/2022 4:57 AM 5:05 (Capillary) PDT AM PDT Az RUIZ LAB POINT OF CARE TEST D OCKED DEVICE UNSOLICITED RESULTS Performing Organization Address City/State/ZIP Code Phon e Number [facility] [address] [facility] [place] LABORATORY ([facility]) WAY [phone] (ABNORMAL) POC Glucose (03/14/2022 3:07 AM PDT) P athologist Signature Glucose (POC) 414 (H) 65 - 99 03/14/2022 [place] mg/dL 3:15 AM PDT [facility] LABORATORY ([facility]) Specimen Anatomical Collection Method Collection Time Receive d Time (Source) Location / / Volume Laterality Blood 03/14/2022 3:07 AM 2 3:15 (Capillary) PDT AM PDT zA Oakley DO BKR LAB POINT OF CARE TEST D OCKED DEVICE UNSOLICITED RESULTS Performing Organization Address City/State/ZIP Code Phon e Number [facility] [address] [facility], [place] LABORATORY ([facility]) WAY [phone] (ABNORMAL) POC Glucose (03/14/2022 2:04 AM PDT) P athologist Signature Glucose (POC) 467 (H) 65 - 99 03/14/2022 [place] mg/dL 2:11 AM PDT HEALTH MAIN LABORATORY ([facility]) Specimen Anatomical Collection Method Collection Time Receive d Time (Source) Location / / Volume Laterality Blood 03/14/2022 2:04 AM 2 2:11 (Capillary) PDT AM PDT Az Oakley DO BKR LAB POINT OF CARE TEST D OCKED DEVICE UNSOLICITED RESULTS Performing Organization Address City/State/ZIP Code Phon e Number [facility] [address] [facility] [place] LAB[facility]ATORY ([facility]) WAY [phone] (ABNORMAL) POC Blood Gas, Arterial (03/13/2022 11:37 PM PDT) Patholo gist Method Time Signature pH, Arterial 7.62 (HH) 7.35 - 03/13/2022 [place] (POC) 7.45 11:42 PM PDT [facility] MAIN LABORATORY ([facility]) pH, Arterial 03/13/2022 [place] (Temp 11:42 PM PDT HEALTH MAIN Corrected) LABORATORY (POC) ([facility]) Comment: Test Not Performed pCO2, Arterial (POC) 35 35 - 45 mmHg 03/13/2022 11:42 PM [facility] PDT [facility] pCO2, Arterial (Temp 03/13/2022 11:42 PM [facility] Corrected) (POC) PDT LABORATORY (Jeannine JAIN) Comment: Test Not Performed pO2, Arterial (POC) 80 70 - 90 mmHg 03/13/2022 11:42 PM [facility] PDT LABORATORY ([facility]) pO2, Arterial (Temp 03/13/2022 11:42 PM [place] [facility] MAIN Corrected) (POC) PDT LABORATORY (Jeannine JAIN) Comment: Test Not Performed TCO2, Arterial (POC) 37 (H) 21 - 28 mmol/L 03/13/2022 11: 42 PM [place] [facility] PDT MAIN LABORATORY (BEAKER) O2 Sat, Arterial 97.6 94 - 98 % 03/13/2022 11:42 PM JENNA [employer] HEALTH (POC) PDT MAIN LABORATORY (BEAKER) Base Excess, 14.2 (H) -2 - 2 mmol/L 03/13/2022 11:42 PM JENNA [employer] HEALTH Arterial (POC) PDT MAIN LABORATORY (BEAKER) HCO3, Arterial (POC) 36.3 (H) 21 - 27 mmol/L 03/13/2022 11:42 PM [place] [facility] PDT MAIN LABORATORY (BEAKER) Pt. Respiratory Rate 03/13/2022 11:42 PM [place] [facility] (POC) PDT MAIN LABORATORY (BEAKER) Liters/Minute (POC) 03/13/2022 11:42 PM [place] [facility] PDT MAIN LABORATORY (BEAKER) Mode (POC) 03/13/2022 11:42 PM [place] [facility] PDT MAIN LABORATORY (BEAKER) FIO2 (POC) 03/13/2022 11:42 PM [place] [facility] PDT MAIN LABORATORY (BEAKER) Peep (POC) 03/13/2022 11:42 PM [place] [facility] PDT MAIN LABORATORY (BEAKER) Tidal Volume (POC) 03/13/2022 11:42 PM [facility] PDT MAIN LABORATORY (BEAKER) Delivery System 03/13/2022 11:42 PM [facility] (POC) PDT MAIN LABORATORY (BEAKER) Set Respiratory Rate 03/13/2022 11:42 PM [place] [facility] (POC) PDT MAIN LABORATORY (BEAKER) Peak Inspiratory 03/13/2022 11:42 PM JENNA [employer] [facility] Pressure (POC) PDT MAIN LABORATORY (BEAKER) Inspiratory Time 03/13/2022 11:42 PM JENNA [employer] [facility] (POC) PDT MAIN LABORATORY (BEAKER) Pressure Support 03/13/2022 11:42 PM JENNA [employer] [facility] (POC) PDT MAIN LABORATORY (BEAKER) Patient Temp (POC) 03/13/2022 11:42 PM K [employer] HEALTH PDT MAIN LABORATORY (BEAKER) Specimen Anatomical Collection Method Collection Time Receive d Time (Source) Location / / Volume Laterality Blood 03/13/2022 11:37 03/13/2022 PM PDT 11:42 PM PDT Az RUIZ LAB POINT OF CARE TEST D OCKED DEVICE UNSOLICITED RESULTS Performing Organization Address City/[facility]/ZIP Code Phon e Number [facility] [address] [place], [place] LABORATORY ([facility]) WAY [phone] Culture, Urine (03/13/2022 10:49 PM PDT) [facility] Method Time Signature Urine Culture No Growth SHON 03/15/2022 [place] 6:19 AM PDT [facility] LABORATORY ([facility]) Specimen Anatomical Collection Method Collection Time Receive d Time (Source) Location / / Volume Laterality Urine (Clean Non-blood 03/13/2022 10:49 03/13/2022 Void - Collection / PM PDT 10:59 PM PDT midstream) Unknown Az RUIZ LAB MICROBIOLOGY ORDERAB LES Performing Organization Address City/[facility]/ZIP Code Phon e Number [facility] [address] [facility], [place] LABORATORY ([employer]) WAY [phone] (ABNORMAL) Urinalysis w/Microscopic and Culture if Indicated (03/13/2022 10:49 PM PDT) [facility] Method Time Signature Color Straw Straw, 03/13/2022 [place] Yellow, 11:09 PM [facility] Light PDT LABORATORY Yellow, Dark ([facility]) Yellow Clarity, Clear Clear 03/13/2022 [place] Urine 11:09 PM [facility] PDT LABORATORY ([facility]) Specific 1.010 1.001 - 03/13/2022 [place], 1.030 11:09 PM [facility] Urine PDT LABORATORY [facility] pH, Ur 9.0 (H) 5.0 - 7.5 pH 03/13/2022 [place] unit 11:09 PM [facility] PDT LABORATORY [facility] Protein, 100 (A) Negative 03/13/2022 [place] Urine mg/dL 11:09 PM [facility] PDT LABORATORY ([employer]) Glucose, Ur 50 (A) Negative 03/13/2022 [place] mg/dL 11:09 PM [facility] PDT LABORATORY ([facility]) Ketones, Ur Trace (A) Negative 03/13/2022 [place] mg/dL 11:09 PM [facility] PDT LABORATORY ([facility]) Occult blood Small (A) Negative 03/13/2022 [place] 11:09 PM [facility] PDT LABORATORY ([facility]) Bilirubin Negative Negative 03/13/2022 [place] 11:09 PM [facility] ([facility]) Leukocyte Moderate (A) Negative 03/13/2022 [place] Esterase, Ur 11:09 PM [facility] PDT LABORATORY ([facility]) Nitrite, Ur Negative Negative 03/13/2022 [place] 11:09 PM [facility] ([facility]) Urobilinogen, <2.0 <2.0 mg/dL 03/13/2022 [place] Urine 11:09 PM [facility] PDT LABORATORY ([facility]) RBC, Urine 2 <3.0 /HPF 03/13/2022 [place] 11:09 PM [facility] ([facility]) WBC, Ur 21 (H) <6 /HPF 03/13/2022 [place] 11:09 PM [facility] PDT LABORATORY ([facility]) Squamous <1 <=8 /HPF 03/13/2022 [place] Epithelials, 11:09 PM [facility] Ur PDT LABORATORY ([facility]) Bacteria Few (A) None Seen 03/13/2022 [place] /HPF 11:09 PM [facility] ([facility]) Specimen Anatomical Collection Method Collection Time Receive d Time (Source) Location / / Volume Laterality Urine (Clean Non-blood 03/13/2022 10:49 03/13/2022 Void - Collection / PM PDT 10:59 PM PDT midstream) Unknown [place] [facility] URINE ORDERABLES Performing Organization Address City/State/ZIP Code Phon e Number [facility] [address] [facility] [place] LABORATORY ([facility]) WAY [phone] (ABNORMAL) Urine Drug Screen (03/13/2022 10:49 PM PDT) [facility] Method Time Signature Amphet/Methamphet Negative Negative 03/13/2022 [place] Screen, Urine 11:21 PM [facility] Random PDT LABORATORY ([facility]) Barbiturates Negative Negative 03/13/2022 [place] Screen, Urine 11:21 PM [facility] Random PDT LABORATORY ([facility]) Benzodiazepines Negative Negative 03/13/2022 [place] Screen, Urine 11:21 PM [facility] Random PDT LABORATORY ([facility]) Buprenorphine Negative Negative 03/13/2022 [place] Screen, Urine 11:21 PM [facility] PDT LABORATORY ([facility]) Cocaine Screen, Negative Negative 03/13/2022 [place] Urine Random 11:21 PM [facility] PDT LABORATORY ([facility]) Methadone Screen, Negative Negative 03/13/2022 [place] Urine Random 11:21 PM [facility] PDT LABORATORY ([facility]) Opiates Screen, Negative Negative 03/13/2022 [place] Urine Random 11:21 PM [facility] PDT LABORATORY ([facility]) Oxycodone/Oxymorph Negative Negative 03/13/2022 [place] one Screen, Urine 11:21 PM [facility] PDT LABORATORY ([facility]) Phencyclidine Negative Negative 03/13/2022 [place] Screen, Urine 11:21 PM [facility] PDT LABORATORY ([facility]) THC Screen, Urine Positive Negative 03/13/2022 [place] Random (A) 11:21 PM [facility] PDT LABORATORY ([facility]) Comment: A preliminary positive result i s based on a screening test only. By physician request, preliminary positive results can be sent to [facility] for confirmation using the preferred confirmatory method of [id number] mass spectr ometry. Do not use unconfirmed results for legal purposes. Creatinine, Urine 45.7 None Established 03/13/2022 11:[address] [facility] Random mg/dL PM PDT MAIN LABORATORY ([facility]) Specimen Anatomical Collection Method Collection Time Receive d Time (Source) Location / / Volume Laterality Urine (Clean Non-blood 03/13/2022 10:49 03/13/2022 Void - Collection / PM PDT 10:59 PM PDT midstream) Unknown Narrative [facility] LABORATORY ([facility]) - 03/13/2022 11:21 PM PDT This is only a preliminary analytical test result. A more specific alternate chemical method must be used in order to obtain a confirmed anal ytical result. GC/MS is the preferred confirmatory method. Clinical consideration and professional drug of abuse test result, preliminary positive results are used. A preliminary positive result indicates the presence of the tested drug and/or their metabolites in urine. It does not measure the level of intoxication. Drug Screen Concentration Cutoffs: 200 ng/mL Barbiturates 300 ng/mL Benzodiazepines 300 ng/mL Cocaine 1000 ng/mL Amphetamine/Methamphetamine 300 ng/mL Methadone 300 ng/mL Opiates 100 ng/mL Oxycodone/Oxymorphone 25 ng/mL Phencyclidine (PCP) 5 ng/mL Buprenorphine 50 ng/mL THC Az NIETOR LAB URINE ORDERABLES Performing Organization Address City/[facility]/ZIP Code Phon e Number [facility] [address] [facility] ID LABORATORY ([employer]) WAY [phone] C-reactive Protein (03/13/2022 10:38 PM PDT) P athologist Signature C-reactive 8.0 0.0 - 8.0 03/13/2022 [facility] protein mg/L 11:31 PM PDT MAIN LABORATORY ([facility]) Specimen Anatomical Collection Method / Collection Time Recei pierre Time (Source) Location / Volume Laterality Blood (Venous) Venipuncture / 03/13/2022 10:38 022 Unknown PM PDT 10:44 PM PDT Az NIETOR LAB BLOOD ORDERABLES Performing Organization Address City/[facility]/ZIP Code Phon e Number [facility] [address] [facility], [place] LABORATORY ([employer]) WAY [phone] (ABNORMAL) Procalcitonin (03/13/2022 10:38 PM PDT) Patholo gist Method Time Signature Procalcitonin 0.26 (H) <0.10 03/13/2022 [place] (PCT) ng/mL 11:32 PM PDT [facility] MAIN LABORATORY ([facility]) Specimen Anatomical Collection Method / Collection Time Recei pierre Time (Source) Location / Volume Laterality Blood (Venous) Venipuncture / 03/13/2022 10:38 022 Unknown PM PDT 10:44 PM PDT Az Oakley DO BKR LAB BLOOD ORDERABLES Performing Organization Address City/[facility]/ZIP Code Phon e Number [facility] [address] [facility] [place] LABORATORY ([employer]) WAY [phone] Lipase (03/13/2022 10:38 PM PDT) athologist Signature Lipase 9 7 - 60 U/L 03/13/2022 [place] [facility] 11:31 PM PDT MAIN LABORATORY ([employer]) Specimen Anatomical Collection Method / Collection Time Recei pierre Time (Source) Location / Volume Laterality Blood (Venous) Venipuncture / 03/13/2022 10:38 022 Unknown PM PDT 10:44 PM PDT Az NIETOR LAB BLOOD ORDERABLES Performing Organization Address City/State/ZIP Code Phon e Number [facility] [address] [facility] [place] LABORATORY ([employer]) [address] [phone] (ABNORMAL) Troponin T, High Sensitivity (03/13/2022 10:38 PM PDT) athologist [facility] Troponin T 212 (HH) <22 ng/L 03/13/2022 [place] [facility] 11:27 PM PDT MAIN LABORATORY ([employer]) Specimen Anatomical Collection Method / Collection Time Recei pierre Time (Source) Location / Volume Laterality Blood (Venous) Venipuncture / 03/13/2022 10:38 022 Unknown PM PDT 10:44 PM PDT Az RUIZ LAB BLOOD ORDERABLES Performing Organization Address City/[facility]/ZIP Code Phon e Number [facility] [address] [facility] [place] LABORATORY ([employer]) [address] [phone] (ABNORMAL) Phosphorus (03/13/2022 10:38 PM PDT) athologist [facility] Phosphorus 5.2 (H) 2.3 - 4.8 03/13/2022 [facility] mg/dL 11:32 PM PDT MAIN LABORATORY ([employer]) Specimen Anatomical Collection Method / Collection Time Recei pierre Time (Source) Location / Volume Laterality Blood (Venous) Venipuncture / 03/13/2022 10:38 022 Unknown PM PDT 10:44 PM PDT Az NIETOR LAB BLOOD ORDERABLES Performing Organization Address City/State/ZIP Code Phon e Number [facility] [address] [facility] [place] LABORATORY ([facility]) WAY [phone] Prothrombin Time (PT) (03/13/2022 10:38 PM PDT) P athologist Signature Protime 13.1 11.6 - 14.7 03/13/2022 [facility] seconds 10:56 PM PDT MAIN LABORATORY ([facility]) INR 1.0 0.9 - 1.2 03/13/2022 [facility] ratio 10:56 PM PDT MAIN LABORATORY ([facility]) Comment: Non-Oral Anticoagulation: 0.9-1.2 Usual Oral Anticoagulation: 2.0-3.0 High Oral Anticoagulation Range: 2.5-3.5 Specimen Anatomical Collection Method / Collection Time Recei pierre Time (Source) Location / Volume Laterality Blood (Venous) Venipuncture / 03/13/2022 10:38 022 Unknown PM PDT 10:44 PM PDT Az RUIZ LAB BLOOD ORDERABLES Performing Organization Address City/State/ZIP Code Phon e Number [facility] [address] [place], [place] LABORATORY ([facility]) WAY [phone] Culture, Blood (03/13/2022 10:38 PM PDT) [facility] gist Method Time Signature Blood Culture No Growth 03/17/2022 [place] in 4 Days 11:00 PM PDT [facility] MAIN LABORATORY ([facility]) Specimen Anatomical Collection Method / Collection Time Recei pierre Time (Source) Location / Volume Laterality Blood (Arm, Venipuncture / 03/13/2022 10:38 2 Right) Unknown PM PDT 10:44 PM PDT Narrative [facility] LABORATORY ([facility]) - 03/17/2022 11:00 PM PDT If Multiple blood cultures ordered, plea se make sure all associated reports are reviewed. Az RUIZ LAB MICROBIOLOGY ORDERAB LES Performing Organization Address City/State/ZIP Code Phon e Number [facility] [address] [place], [place] LABORATORY ([facility]) WAY [phone] Culture, Blood (03/13/2022 10:38 PM PDT) [facility] gist Method Time Signature Blood Culture No Growth 03/17/2022 [place] in 4 Days 11:00 PM PDT [facility] MAIN LABORATORY ([facility]) Specimen Anatomical Collection Method / Collection Time Recei pierre Time (Source) Location / Volume Laterality Blood (Hand, Venipuncture / 03/13/2022 10:38 Right) Unknown PM PDT 10:44 PM PDT Narrative [facility] LABORATORY ([facility]) - 03/17/2022 11:00 PM PDT If Multiple blood cultures ordered, plea se make sure all associated reports are reviewed. Az RUIZ LAB MICROBIOLOGY ORDERAB LES Performing Organization Address City/State/ZIP Code Phon e Number [facility] [address] [facility] [place] LABORATORY ([facility]) WAY [phone] (ABNORMAL) Beta Hydroxybutyrate (03/13/2022 10:38 PM PDT) Patholo gist Method Time Signature Beta 0.87 (H) 0.00 - 03/13/2022 [place] Hydroxybutyrate 0.29 10:58 PM [facility] mmol/L PDT LABORATORY ([facility]) Specimen Anatomical Collection Method / Collection Time Recei pierre Time (Source) Location / Volume Laterality Blood (Venous) Venipuncture / 03/13/2022 10:38 022 Unknown PM PDT 10:44 PM PDT Az RUIZ LAB BLOOD ORDERABLES Performing Organization Address City/[facility]/ZIP Code Phon e Number [facility] [address] [facility] [place] LABORATORY ([facility]) WAY [phone] (ABNORMAL) Magnesium (03/13/2022 10:38 PM PDT) P athologist Signature Magnesium 4.1 (HH) 1.7 - 2.4 03/13/2022 [facility] mg/dL 11:38 PM PDT MAIN LABORATORY ([facility]) Specimen Anatomical Collection Method / Collection Time Recei pierre Time (Source) Location / Volume Laterality Blood (Venous) Venipuncture / 03/13/2022 10:38 022 Unknown PM PDT 10:44 PM PDT Az NIETOR LAB BLOOD ORDERABLES Performing Organization Address City/State/ZIP Code Phon e Number [facility] [address] [facility] [place] LABORATORY ([facility]) WAY [phone] (ABNORMAL) Comprehensive Metabolic Panel (03/13/2022 10:38 PM PDT) [facility] Method Time Signature Sodium 136 136 - 145 03/13/2022 [place] mmol/L 11:31 PM [facility] LABORATORY ([facility]) Potassium 2.9 (L) 3.5 - 5.0 03/13/2022 [place] mmol/L 11:31 PM PDT [facility] LABORATORY ([facility]) Chloride 76 (L) 99 - 109 03/13/2022 [place] mmol/L 11:31 PM PDT [facility] LABORATORY ([facility]) CO2 43 (H) 23 - 33 03/13/2022 [place] mmol/L 11:31 PM [facility] LABORATORY ([facility]) Anion Gap 17 (H) 5 - 16 03/13/2022 [place] ratio 11:31 PM [facility] LABORATORY ([facility]) Creatinine 5.81 (H) 0.50 - 03/13/2022 [place] 1.30 mg/dL 11:31 PM PDT [facility] LABORATORY ([facility]) BUN 65 (H) 8 - 25 03/13/2022 [place] mg/dL 11:31 PM [facility] LABORATORY ([facility]) Glucose 173 (H) 65 - 99 03/13/2022 [place] mg/dL 11:31 PM [facility] LABORATORY ([facility]) Calcium 8.8 8.5 - 10.2 03/13/2022 [place] mg/dL 11:31 PM [facility] LABORATORY ([facility]) Total Protein 7.3 6.3 - 8.0 03/13/2022 [place] g/dL 11:31 PM [facility] LABORATORY ([facility]) Albumin 3.9 3.5 - 5.0 03/13/2022 [place] g/dL 11:31 PM [facility] LABORATORY ([facility]) Globulin 3.4 1.8 - 3.5 03/13/2022 [place] g/dL 11:31 PM [facility] LABORATORY ([facility]) Albumin/Globuli 1.1 1.0 - 2.7 03/13/2022 [place] n Ratio ratio 11:31 PM [facility] LABORATORY ([facility]) Total Bilirubin 0.7 0.1 - 1.5 03/13/2022 [place] mg/dL 11:31 PM [facility] LABORATORY ([facility]) ALT 10 10 - 65 03/13/2022 [place] U/L 11:31 PM [facility] LABORATORY ([facility]) Alk Phos 134 (H) 35 - 115 03/13/2022 [place] U/L 11:31 PM [facility] LABORATORY ([facility]) AST 21 10 - 45 03/13/2022 [place] U/L 11:31 PM [facility] LABORATORY ([facility]) Estimated 12 (L) >=60 03/13/2022 [place] Glomerular mL/min/1.7 11:31 PM [facility] Filtration Rate 3 m2 LABORATORY (eGFR) ([facility]) Comment: Estimated GFR is calculated using the CK D-EPI equation. National Kid[employer] (NKF) Guideli ne for Chronic Kidney Disease (CKD): >=60 Normal 45-59 Mildly to Moderately Decreased 30-44 Moderately to Severely Decreased 15-29 Severely Decreased <15 Kidney Failure Abnormalities present for at least 3 mon ths discriminate between chronic and acute disease. Specimen Anatomical Collection Method / Collection Time Recei pierre Time (Source) Location / Volume Laterality Blood (Venous) Venipuncture / 03/13/2022 10:38 022 Unknown PM PDT 10:44 PM PDT Az RUIZ LAB BLOOD ORDERABLES Performing Organization Address City/[facility]/ZIP Code Phon e Number [facility] [address] [facility] [place] LABORATORY ([facility]) WAY [phone] (ABNORMAL) Calcium, Ionized (03/13/2022 10:36 PM PDT) Analysis Performed At Patho logist Time Signature Ionized 3.62 (L) 4.75 - 03/13/2022 [place] Calcium 5.30 mg/dL 10:51 PM PDT [facility] LABORATORY ([facility]) Specimen Anatomical Collection Method / Collection Time Recei pierre Time (Source) Location / Volume Laterality Blood (Venous) Venipuncture / 03/13/2022 10:36 022 Unknown PM PDT 10:44 PM PDT Az RUIZ LAB BLOOD ORDERABLES Performing Organization Address City/State/ZIP Code Phon e Number [facility] [address] [place], [place] LABORATORY ([facility]) WAY [phone] Lactic Acid, Venous (03/13/2022 10:36 PM PDT) P athologist Signature Lactic Acid, 2.0 0.5 - 2.2 03/13/2022 [facility] Venous mmol/L 10:49 PM PDT MAIN LABORATORY ([facility]) Specimen Anatomical Collection Method / Collection Time Recei pierre Time (Source) Location / Volume Laterality Blood (Venous) Venipuncture / 03/13/2022 10:36 022 Unknown PM PDT 10:43 PM PDT Narrative [facility] LABORATORY ([facility]) - 03/13/2022 10:49 PM PDT Consider severe sepsis if Lactate is >2.0 Consider septic shock if Lactate is >4.0 Az Oakley DO BKR LAB BLOOD ORDERABLES Performing Organization Address City/State/ZIP Code Phon e Number [facility] [address] [place], [place] LABORATORY ([facility]) WAY [phone] (ABNORMAL) Blood Gas, Venous (03/13/2022 10:35 PM PDT) Patholo gist Method Time Signature pH, Venous 7.544 (H) 7.310 - 03/13/2022 [place] 7.410 10:50 PM PDT [facility] LABORATORY ([facility]) pCO2, Venous 58.0 (H) 41.0 - 03/13/2022 [place] 51.0 10:50 PM PDT [facility] mm/Hg LABORATORY ([facility]) pO2, Venous 30 (L) 37 - 43 03/13/2022 [place] mm/Hg 10:50 PM PDT [facility] LABORATORY ([facility]) Total Carbon 51.7 (H) 23.0 - 03/13/2022 [place] Dioxide (tCO2), 33.0 10:50 PM PDT [facility] Venous mmol/L [facility] Bicarbonate 49.9 (H) 23.0 - 03/13/2022 [place] (HCO3), Venous 29.0 10:50 PM PDT [facility] mmol/L LABORATORY ([facility]) Oxygen 50.5 (L) 70.0 - 03/13/2022 [place] Saturation 76.0 % 10:50 PM PDT [facility] (SO2), Venous LABORATORY ([place]) Base Excess 22.8 (H) 0.0 - 2.0 03/13/2022 [place] (BE), Venous meq/L 10:50 PM PDT [facility] LABORATORY ([place]) Specimen Anatomical Collection Method / Collection Time Recei pierre Time (Source) Location / Volume Laterality Blood (Venous) Venipuncture / 03/13/2022 10:35 022 Unknown PM PDT 10:43 PM PDT Az Oakley BKR LAB BLOOD ORDERABLES Performing Organization Address City/State/ZIP Code Phon e Number [facility] [address] [facility] [facility] [place] LAB[facility]AT[facility] ([facility]) WAY [phone] EKG (03/13/2022 10:27 PM PDT) P athologist Signature HEART RATE 96 bpm RED ISECG RR Interval 625 ms RED ISECG Atrial Rate 96 ms RED ISECG P-R Interval 152 ms RED ISECG P Duration 105 ms RED ISECG P Horizontal 20 deg RED ISECG [place] P Front [place] 40 deg RED ISECG Q Onset 504 ms RED ISECG QRSD Interval 86 ms RED ISECG QT Interval 454 ms RED ISECG QTcB 574 ms RED ISECG QTcF 531 ms RED ISECG QRS Horizontal -22 deg RED ISECG [place] QRS [place] 64 deg RED ISECG I-40 Horizontal 101 deg RED ISECG [place] I-40 Front [place] 263 deg RED ISECG T-40 Horizontal -32 deg RED ISECG [place] T-40 Front [place] 71 deg RED ISECG T Horizontal 49 deg RED ISECG [place] T Wave [place] 85 deg RED ISECG S-T Horizontal 97 deg RED ISECG [place] S-T Front [place] 118 deg RED ISECG Specimen (Source) Anatomical Collection Method Collection Time Re ceived Time Location / / Volume Laterality 03/13/2022 10:27 PM PDT Narrative RED ISE[facility] - 03/14/2022 12:15 PM PDT - ABNORMAL ECG - Sinus rhythm Consider left ventricular hypertrophy Prolonged QT interval When compared with ECG of 03-Jan-2022 13 :45:10,lateral lead T wave abnl is resolved Az Oakley DO NURSING TREATMENT ORDERS Performing Organization Address City/State/ZIP Code Phon e Number [facility]AYA ISE[facility] [place] ISE[facility] (ABNORMAL) POC Glucose (03/13/2022 10:07 PM PDT) athologist Signature Glucose (POC) 172 (H) 65 - 99 03/19/2022 [place] mg/dL 8:32 AM PDT HEALTH MAIN LABORATORY ([employer]) Specimen Anatomical Collection Method Collection Time Receive d Time (Source) Location / / Volume Laterality Blood 03/13/2022 10:07 03/19/2022 8:32 (Capillary) PM PDT AM PDT Az Oakley DO BKR LAB POINT OF CARE TEST D OCKED DEVICE UNSOLICITED RESULTS Performing Organization Address City/[facility]/ZIP Code Phon e Number [place] Teamleader [facility] [address] [place] LABORATORY ([employer]) WAY [phone] (ABNORMAL) POC Glucose (03/13/2022 9:22 PM PDT) athologist Signature Glucose (POC) 61 (L) 65 - 99 03/19/2022 [place] [facility] mg/dL 8:32 AM PDT MAIN LABORATORY ([employer]) Specimen Anatomical Collection Method Collection Time Receive d Time (Source) Location / / Volume Laterality Blood 03/13/2022 9:22 PM 8:32 (Capillary) PDT AM PDT Az Oakley DO BKR LAB POINT OF CARE TEST D OCKED DEVICE UNSOLICITED RESULTS Performing Organization Address City/[facility]/ZIP Code Phon e Number [employer] [facility] [address] [place] LABORATORY ([employer]) WAY [phone] O XR CHEST PORTABLE 1 VIEW AP (03/13/2022 12:00 AM PDT) Anatomical Region Laterality Modality Chest Computed Radiography Specimen (Source) Anatomical Location Collection Method / Collectio n Time Received Time / Laterality Volume 03/13/2022 Narrative This result has an attachment that is no t available. Him Scanned Document DIAGNOSTIC RADIOLOGY documented in this encounter Visit Diagnoses Diagnosis Hyperosmolar hyperglycemic state (HHS) ( CMS/HCC) - Primary Sepsis (CMS/HCC) documented in this encounter Admitting Diagnoses Diagnosis Sepsis (CMS/HCC) documented in this encounter Administered Medications Inactive Administered Medications - up to 3 most recent administrations Medication Order MAR Action Action Date Dose Rate Site 0.9 % NaCl (NS) bolus New 03/13/2022 10:30 PM 1,000 mL 999 m L/hr solution 1,000 mL Bag/Bottle/Cartridg PDT 1,000 mL, Intravenous, e $ at 999 mL/hr Administer over 60 Minutes, ONCE On Tue03/13/22 at 2230 For 1 dose 0.9 % NaCl (NS) New Bag/Bottle/Cartridge $ 03/19/2022 8:45 1,000 mL 2000 mL/hr bolus solution AM PDT 1,000 mL 1,000 mL, Intravenous, at 2,000 mL/hr Administer over 30 Minutes, ONCE On Tue03/19/22 at 0845 For 1 dose 0.9 % NaCl (NS) New Bag/Bottle/Cartridge $ 03/19/2022 11:06 1,000 mL 2000 mL/hr bolus solution AM PDT 1,000 mL 1,000 mL, Intravenous, at 2,000 mL/hr Administer over 30 Minutes, ONCE On Tue03/19/22 at 1030 For 1 dose 0.9 % NaCl (NS) New Bag/Bottle/Cartridge $ 03/14/2022 12:23 80 mL/hr 80 mL/hr infusion soln AM PDT 80 mL/hr, Intravenous, CONTINUOUS Starting on Tue03/13/22 at 2230 Until Tue03/14/22 at 0753, 500 mL 0.9% NaCl with KCl 40 mEq/L New Bag/Bottle/Cartridge $ 03/14/2022 8 :17 100 mL/hr solution (NS KCl 40 mEq/L) AM PDT Intravenous, at 100 mL/hr, CONTINUOUS Starting on Tue03/14/22 at 0800 Until Tue03/15/22 at 0647, 1,000 mL carvedilol (Coreg) tablet 6.25 mg Given $ 03/24/2022 6:19 AM PDT 6.25 mg Consider dose adjustment with hepatic dysfunction. , 6.25 mg, Oral, BID First dose on Tue03/15/22 at 1800 Until Discontinued Given $ 03/23/2022 9:00 PM PDT 6.25 mg Given $ 03/23/2022 8:25 AM PDT 6.25 mg cloNIDine (Catapres) 0.2 Patch Applied $ 03/15/2022 1:27 PM PDT 1 Pat ch Left Arm MG/24HR weekly patch 1 Patch needs to be tapered prior to discontinuation, 1 Patch, Transdermal, WEEKLY, Administer over 7 Days First dose on Tue03/15/22 at 1100 Until Discontinued dextrose 5 % and 0.9% NaCl New Bag/Bottle/Cartridge $ 03/18/2022 3: 56 100 mL/hr (D5 NS) IV solution AM PDT Intravenous, at 100 mL/hr, CONTINUOUS Starting on 03/14/22 at 0000 Until Jihan 03/18/22 at 0721, 1,000 mL New Bag/Bottle/Cartridge $ 03/17/2022 5:18 PM PDT 100 mL/hr New Bag/Bottle/Cartridge $ 03/17/2022 12:12 AM PDT 100 mL/hr dextrose 50 % IV solution 50 mL Given $ 03/23/2022 3:03 PM PDT 50 mL 50 mL, Intravenous, PRN blood sugar <, 65, Starting on 03/13/22 at 2136 Until Tue03/24/22 at 1303 Given $ 03/21/2022 4:17 PM PDT 50 mL Given $ 03/13/2022 9:40 PM PDT 50 mL epoetin estefany non-ESRD (EPOGEN, Given $ 03/17/2022 3:10 PM PDT 10,0 00 Units PROCRIT) 10,000 units/mL inj 10,000 Units Do not use for patents with CKD on hemodialysis., 10,000 Units, Subcutaneous, ONCE On Tue03/17/22 at 1230 For 1 dose epoetin estefany non-ESRD Given $ 03/23/2022 11:02 AM 10,000 Units Right Upper Arm (EPOGEN, PROCRIT) 10,000 PDT units/mL inj 10,000 Units Do not use for patents with CKD on hemodialysis., 10,000 Units, Subcutaneous, ONCE On Tue03/23/22 at 0715 For 1 dose famotidine (PEPCID) tablet 20 mg Given $ 03/16/2022 5:25 AM PDT 20 mg Consider dose adjustment with renal impairment. , 20 mg, Oral, BID First dose on Tue03/15/22 at 1800 Until Discontinued Given $ 03/15/2022 4:55 PM PDT 20 mg famotidine (PEPCID) tablet 20 mg Given $ 03/24/2022 8:12 AM PDT 20 mg Consider dose adjustment with renal impairment. , 20 mg, Oral, Q2 DAYS First dose (after last modification) on Jihan 03/18/22 at 0530 Until Discontinued Given $ 03/22/2022 8:34 AM PDT 20 mg Given $ 03/20/2022 8:45 AM PDT 20 mg fluoxetine (PROzac) tablet 20 mg Given $ 03/24/2022 6:14 AM PDT 20 mg 20 mg, Oral, DAILY First dose on 03/20/22 at 1430 Until Discontinued Given $ 03/23/2022 5:24 AM PDT 20 mg Given $ 03/22/2022 5:10 AM PDT 20 mg granisetron (Kytril) 1 mg/mL inj 1 mg Given $ 03/21/2022 9:56 PM PDT 1 mg 1 mg, Intravenous, BEDTIME First dose on 03/20/22 at 2100 For 2 doses Last dose on 03/21/22 at 2100 Given $ 03/20/2022 9:55 PM PDT 1 mg granisetron (Kytril) tablet 1 mg For doses requiring partial, prepackaged tablet segment use separate record. This entry is for whole tablet doses only., 1 mg, Oral, Q24 H PRN breakthrough nausea/vomiting, Starting on Tue03/24/22 at 0730 Until Tue03/24/22 at 1303 heparin 5000 units/mL inj Given $ 03/24/2022 8:11 AM PDT 5,000 Uni ts Abdomen RLQ 5,000 Units 5,000 Units, Subcutaneous, Q12H First dose on Tue03/16/22 at 0945 Until Discontinued Given $ 03/23/2022 9:00 PM PDT 5,000 Units Abdom en RLQ Given $ 03/23/2022 8:25 AM PDT 5,000 Units Abdom en RLQ heparin flush 100 units/mL Given $ 03/24/2022 10:20 AM PDT 500 Uni ts Right Chest inj 500 Units 500 Units (5 mL), Intravenous, PER PROTOCOL Starting on Tue03/24/22 at 0931 Until Tue03/24/22 at 1303 insulin glargine (Lantus) 100 units/mL Given $ 03/22/2022 10:4 6 AM PDT 15 Units inj 15 Units 15 Units, Subcutaneous, DAILY First dose (after last modification) on 03/22/22 at 1000 Until Discontinued insulin glargine (Lantus) 100 units/mL Given $ 03/21/2022 9:33 AM PDT 20 Units inj 20 Units 20 Units, Subcutaneous, DAILY First dose on Tue03/19/22 at 1530 Until Discontinued Given $ 03/20/2022 10:43 AM PDT 20 Units Left Arm Given $ 03/19/2022 5:42 PM PDT 20 Units insulin lispro (HUMALOG) 100 units/mL Given $ 03/19/2022 11:57 AM PDT 10 Units single dose 0-16 Units 0-16 Units, Subcutaneous, AC HS First dose on Tue03/19/22 at 0745 For 1 dose Last dose on Tue03/19/22 at 0745 insulin lispro (HUMALOG) 100 units/mL Given $ 03/19/2022 9:06 PM P DT 4 Units single dose 0-16 Units 0-16 Units, Subcutaneous, AC HS First dose on Tue03/19/22 at 1130 Until Discontinued Given $ 03/19/2022 5:42 PM PDT 1 Units insulin lispro (HUMALOG) 100 units/mL Given $ 03/17/2022 3:13 PM P DT 2 Units single dose 0-5 Units 0-5 Units, Subcutaneous, Q3S First dose (after last modification) on Tue03/14/22 at 0315 Until Discontinued Given $ 03/17/2022 12:04 PM PDT 2 Units Given $ 03/17/2022 9:17 AM PDT 3 Units insulin lispro (HUMALOG) 100 Given $ 03/18/2022 1:29 PM PDT 5 Unit s Right Arm units/mL single dose 0-5 Units 0-5 Units, Subcutaneous, Q6S First dose (after last modification) on Tue03/17/22 at 1800 Until Discontinued Given $ 03/17/2022 11:51 PM PDT 5 Units Given $ 03/17/2022 6:07 PM PDT 2 Units Right Arm insulin lispro (HUMALOG) 100 units/mL Given $ 03/18/2022 9:27 PM P DT 5 Units single dose 0-5 Units 0-5 Units, Subcutaneous, AC HS First dose (after last modification) on Tue03/18/22 at 2100 Until Discontinued insulin lispro (HUMALOG) 100 Given $ 03/23/2022 8:25 AM PDT 5 Unit s Abdomen RLQ units/mL single dose 0-5 Units 0-5 Units, Subcutaneous, AC HS First dose on Tue03/20/22 at 0730 For 13 doses Last dose on Tue03/23/22 at 0730 Given $ 03/22/2022 8:14 PM PDT 3 Units Given $ 03/22/2022 4:26 PM PDT 3 Units insulin lispro (HUMALOG) 100 Given $ 03/18/2022 8:02 AM PDT 10 Uni ts Left Arm units/mL single dose 10 Units 10 Units, Subcutaneous, ONCE On Tue03/18/22 at 0745 For 1 dose insulin lispro (HUMALOG) 100 Given $ 03/18/2022 6:09 PM PDT 10 Uni ts Left Arm units/mL single dose 10 Units 10 Units, Subcutaneous, ONCE On Tue03/18/22 at 1730 For 1 dose insulin lispro (HUMALOG) 100 units/mL Given $ 03/19/2022 8:19 AM P DT 15 Units single dose 15 Units 15 Units, Subcutaneous, ONCE On Tue03/19/22 at 0815 For 1 dose insulin lispro (HUMALOG) 100 units/mL Given $ 03/23/2022 9:00 AM P DT 300 Units single dose 300 Units 300 Units, Subcutaneous, ONCE PRN blood sugar >, insulin pump fill/initiation reinitiation of home therapy, Starting on Tue03/23/22 at 1000 For 1 dose Until Tue03/23/22 at 0900 insulin lispro (HUMALOG) 100 Given $ 03/14/2022 2:28 AM PDT 8 Unit s Left Deltoid units/mL single dose 8 Units 8 Units, Subcutaneous, ONCE On Tue03/14/22 at 0230 For 1 dose insulin pump parameter 1 New Bag/Bottle/Cartridge $ 03/23/2022 10:00 AM 1 Each Each PDT Subcutaneous, CONTINUOUS, Starting on Tue03/23/22 at 1000, Until Tue03/24/22 at 1303 lactated ringers (LR) New Bag/Bottle/Cartridge $ 03/23/2022 5:27 AM 100 mL/hr infusion soln PDT Intravenous, at 100 mL/hr, CONTINUOUS Starting on Tue03/22/22 at 0730 Until Tue03/23/22 at 0701, 1,000 mL New Bag/Bottle/Cartridge $ 03/22/2022 8:19 PM PDT 100 mL/hr New Bag/Bottle/Cartridge $ 03/22/2022 8:33 AM PDT 100 mL/hr lisinopril tablet 10 mg Given $ 03/16/2022 5:25 AM PDT 10 mg Consider dose adjustment with renal impairment. , 10 mg, Oral, DAILY First dose on Tue03/15/22 at 1100 Until Discontinued Given $ 03/15/2022 1:25 PM PDT 10 mg lorazepam (Ativan) tablet 0.5 mg Given $ 03/23/2022 10:23 PM PDT 0.5 mg 0.5 mg, Oral, Q8H PRN anxiety: 1st line, Starting on Tue03/22/22 at 1642 Until Tue03/24/22 at 1303 Given $ 03/23/2022 3:39 PM PDT 0.5 mg Given $ 03/22/2022 5:51 PM PDT 0.5 mg melatonin tablet 6 mg Given $ 03/23/2022 10:23 PM PDT 6 mg 6 mg, Oral, BEDTIME PRN sleeplessness, Starting on Tue03/16/22 at 2310 Until Tue03/24/22 at 1303 Given $ 03/22/2022 8:15 PM PDT 6 mg Given $ 03/20/2022 9:54 PM PDT 6 mg mirtazapine (Remeron SolTab) tablet Given $ 03/23/2022 9:00 PM PDT 15 mg dispersible 15 mg Consider dose adjustment with renal impairment. , 15 mg, Oral, BEDTIME First dose on Tue03/15/22 at 2100 Until Discontinued Given $ 03/22/2022 8:15 PM PDT 15 mg Given $ 03/21/2022 9:56 PM PDT 15 mg NIFEdipine (Procardia XL) tablet SR 24 hr 30 Given $ 01/2022 6:19 AM PDT 30 mg mg Reduce dose by 50-60% in patients with cirrhosis., 30 mg, Oral, DAILY First dose on Tue03/17/22 at 1230 Until Discontinued Given $ 03/23/2022 8:25 AM PDT 30 mg Given $ 03/22/2022 8:34 AM PDT 30 mg ondansetron (Zofran) 2 mg/mL inj 4 mg Given $ 03/24/2022 8:12 AM PDT 4 mg 4 mg, Intravenous Q6H PRN nausea, vomiting, other, nausea: 1st line, Starting on 03/13/22 at 2350 Until Tue03/24/22 at 1303, 2 mL Given $ 03/21/2022 3:35 PM PDT 4 mg Given $ 03/20/2022 7:25 AM PDT 4 mg pantoprazole (Protonix) inj 40 mg Given $ 03/23/2022 5:24 AM PDT 40 mg 40 mg, Intravenous, DAILY First dose on Tue03/19/22 at 1645 Until Discontinued Given $ 03/22/2022 5:10 AM PDT 40 mg Given $ 03/21/2022 4:52 AM PDT 40 mg pantoprazole (Protonix) tablet EC 40 mg Given $ 03/24/2022 6:14 AM PDT 40 mg 40 mg, Oral, DAILY First dose on Tue03/24/22 at 0600 Until Discontinued piperacillin-tazobactam New Bag/Bottle/Cartridge 03/14/2022 2.25 g 200 mL/hr (ZOSYN) 2.25 g in 0.9 % NaCl $ 7:51 AM PDT (NS) 100 mL IV piggyback 2.25 g, Intravenous, at 200 mL/hr Administer over 30 Minutes, Q8S First dose on Tue03/14/22 at 0000 Until Discontinued, 100 mL New Bag/Bottle/Cartridge $ 03/14/2022 12:06 AM PDT 2.25 g 200 mL/hr piperacillin-tazobactam New Bag/Bottle/Cartridge 03/16/2022 2.25 g 200 mL/hr (ZOSYN) 2.25 g in 0.9 % NaCl $ 12:30 PM PDT (NS) 100 mL IV piggyback 2.25 g, Intravenous, at 200 mL/hr Administer over 30 Minutes, Q6H First dose (after last modification) on Tue03/14/22 at 1300 Until Discontinued, 100 mL New Bag/Bottle/Cartridge $ 03/16/2022 5:26 AM PDT 2.25 g 200 mL/hr New Bag/Bottle/Cartridge $ 03/15/2022 11:40 PM PDT 2.25 g 200 mL/hr potassium chloride New Bag/Bottle/Cartridge $ 03/14/2022 12:44 40 mEq 130 mL/hr (KCL) 40 mEq in 0.9 % AM PDT NaCl (NS) 500 mL IV infusion 40 mEq, Intravenous, at 130 mL/hr Administer over 4 Hours, ONCE On Tue03/14/22 at 0015 For 1 dose 520 mL potassium chloride New Bag/Bottle/Cartridge $ 03/14/2022 10:09 40 mEq 130 mL/hr (KCL) 40 mEq in 0.9 % AM PDT NaCl (NS) 500 mL IV infusion 40 mEq, Intravenous, at 130 mL/hr Administer over 4 Hours, ONCE On Tue03/14/22 at 0900 For 1 dose 520 mL promethazine (Phenergan) 12.5 mg in 0.9 % NaCl (NS) 50 mL IV piggyback 12.5 mg, Intravenous, at 100 mL/hr Admin ister over 30 Minutes, Every 6 hours PRN nausea, vomiting, Starting on Tue03/19/22 at 0836 Until Tue03/24/22 at 1303, 50 mL promethazine New Bag/Bottle/Cartridge $ 03/23/2022 10:20 6.25 mg 1 00 mL/hr (Phenergan) 6.25 mg in PM PDT 0.9 % NaCl (NS) 50 mL IV piggyback 6.25 mg, Intravenous, at 100 mL/hr Administer over 30 Minutes, Every 6 hours PRN nausea, vomiting, Starting on Tue03/19/22 at 0836 Until Tue03/24/22 at 1303, 50 mL New Bag/Bottle/Cartridge $ 03/19/2022 9:08 PM PDT 6.25 mg 100 mL/hr New Bag/Bottle/Cartridge $ 03/19/2022 10:14 AM PDT 6.25 mg 100 mL/hr promethazine (PHENERGAN) tablet 12.5 mg Use with caution in geriatric patients, 12.5 mg, Oral, Q6H PRN nausea: 3rd line, nausea or vomiting, Starting on Tue03/19/22 at 0836 Unt il Tue03/24/22 at 1303 venlafaxine (Effexor XR) capsule SR 24 hr Given $ 03/24/2022 6 :14 AM PDT 225 mg 225 mg Consider dose adjustment with renal impairment. , 225 mg, Oral, DAILY First dose on Tue03/15/22 at 1100 Until Discontinued Given $ 03/23/2022 5:25 AM PDT 225 mg Given $ 03/22/2022 5:10 AM PDT 225 mg documented in this encounter Active and Recently Administered Medications Times are shown in PDT. Scheduled Medication Order 03/22/2022 03/23/2022 03/24/2022 carvedilol (Coreg) tablet 6.25 mg 0834 (Given $ - Prov ider: Han Wolf RN)2013 (Given $ - Provider: Janet Prabhakar, RN) 0825 (Given $ - Provider: Maranda Anton RN - Comment: HR 95)2100 (Given $ - Provider: Hernandez Venegas, RN) 0619 (Given $ - Provider: Yecenia Niño, NICOLE)0900 (Canceled Entry - Provider: Yecenia Niño RN) Consider dose adjustment with hepatic dy sfunction. , 6.25 mg, Oral, BID First dose on Tue03/15/22 at 1800 Until Discontinued epoetin estefany non-ESRD (EPOGEN, PROCRIT) 10,000 units/mL inj 10,000 Units (COMPLETED) 1102 (Given $ - Provider: Maranda Anton RN) Do not use for patents with CKD on hemod ialysis., 10,000 Units, Subcutaneous, ONCE On 03/23/22 at 0715 For 1 dose famotidine (PEPCID) tablet 20 mg 0834 (Given $ - Provider: Han Wolf RN) 0812 (Given $ - Provider: Ailyn Corona, NICOLE) Consider dose adjustment with renal impa irment. , 20 mg, Oral, Q2 DAYS First dose (after last modification) on Jihan 03/18/22 at 0530 Until Discontinued fluoxetine (PROzac) tablet 20 mg 0510 (Given $ - Provi akash: Clau Lara RN) 0524 (Given $ - Provider: Janet Prabhakar, NICOLE) 0614 (Give n $ - Provider: Yecenia Niño, NICOLE) 20 mg, Oral, DAILY First dose on 03/20/22 at 1430 Until Discon tinued heparin 5000 units/mL inj 5,000 Units 0834 (Given $ - Provider: Han Wolf RN)2014 (Given $ - Provider: Janet Prabhakar, NICOLE) 0825 (Given $ - Provider: Maranda Anton, NICOLE)2100 (Given $ - Provider: Hernandez Venegas RN) 0811 (Given $ - Provider: Ailyn Corona RN) 5,000 Units, Subcutaneous, Q12H First do se on Tue03/16/22 at 0945 Until Discontinued heparin flush 100 units/mL inj 500 Units 1020 (Given $ - Provider: Calixto Ruth RN) 500 Units (5 mL), Intravenous, PER YESICA COL Starting on Tue03/24/22 at 0931 Until Tue03/24/22 at 1303 insulin glargine (Lantus) 100 units/mL inj 15 Units (C ANCELED) 1046 (Given $ - Provider: Han Wolf RN) 15 Units, Subcutaneous, DAILY First dose (after last modification) on Tue03/22/22 at 1000 Until Discontinued insulin lispro (HUMALOG) 100 units/mL single dose 0-5 Units () 0834 (Given $ - Provider: Han Wolf RN)1229 (Given $ - Provider: Han Wolf RN)1626 (Given $ - Provider: Han Wolf RN)2013 (Given $ - Provider: Janet Prabhakar RN) 0825 (Given $ - Provider: Maranda Anton RN - Comment: bg 339) 0-5 Units, Subcutaneous, AC HS First dos e on Tue03/20/22 at 0730 For 13 doses Last dose on Tue03/23/22 at 0730 mirtazapine (Remeron SolTab) tablet dispersible 15 mg 2014 (Given $ - Provider: Janet Prabhakar RN) 2100 (Given $ - Provider: Hernandez Venegas RN) Consider dose adjustment with renal impa irment. , 15 mg, Oral, BEDTIME First dose on Tue03/15/22 at 2100 Until Discontinued NIFEdipine (Procardia XL) tablet SR 24 hr 30 mg 0834 ( Given $ - Provider: Han Wolf RN) 0825 (Given $ - Provider: Maranda Anton RN - Comment: HR 95) 0619 (Given $ - Provider: Yecenia Niño RN)0900 (Canceled Entry - Provider: Yecenia Niño RN) Reduce dose by 50-60% in patients with c irrhosis., 30 mg, Oral, DAILY First dose on Tue03/17/22 at 1230 Until Discontinued pantoprazole (Protonix) inj 40 mg (CANCELED) 0510 (Giv en $ - Provider: Clau Lara, RN) 0524 (Given $ - Provider: Janet Prabhakar, NICOLE) 40 mg, Intravenous, DAILY First dose on Tue03/19/22 at 1645 Until Discontinued pantoprazole (Protonix) tablet EC 40 mg 0614 (Given $ - Provider: Yecenia Niño, NICOLE) 40 mg, Oral, DAILY First dose on Tue03/24/22 at 0600 Until Discon tinued venlafaxine (Effexor XR) capsule SR 24 hr 225 mg 0510 (Given $ - Provider: Clau Lara, RN) 0525 (Given $ - Provider: Janet Prabhakar, NICOLE) 0614 (Give n $ - Provider: Yecenia Niño, NICOLE) Consider dose adjustment with renal impa irment. , 225 mg, Oral, DAILY First dose on Tue03/15/22 at 1100 Until Discontinued Continuous Medication Order 03/22/2022 03/23/2022 03/24/2022 insulin pump parameter 1 Each 1000 (New Bag/Bottle/Cartridge $ - Provider: Maranda Anton RN - Comment: bg 315pt self administer 5.13u)1501 (Double Check - Provider: Maranda Anton RN - Comment: BG 44) Subcutaneous, CONTINUOUS, Starting on 03/23/22 at 1000, Until Tue03/24/22 at 1303 1600 (Double Check - Provide r: Maranda Anton RN - Comment: bg 207pt dosed self 2.4 units) lactated ringers (LR) infusion soln (CANCELED) 0833 (N ew Bag/Bottle/Cartridge $ - Provider: Han Wolf RN)2018 (New Bag/Bottle/Cartridge $ - Provider: Janet Prabhakar, NICOLE) 0527 (New Bag/Bottle/Cartridge $ - Provider: Janet delgado, NICOLE) Intravenous, at 100 mL/hr, CONTINUOUS St arting on Tue03/22/22 at 0730 Until Tue03/23/22 at 0701, 1,000 mL PRN Medication Order 03/22/2022 03/23/2022 03/24/2022 dextrose 50 % IV solution 50 mL 1503 (Gi tomas $ - Provider: Maranda Anton RN - Comment: bg 44) 50 mL, Intravenous, PRN blood sugar <, 6 5, Starting on Tue03/13/22 at 2136 Until Tue03/24/22 at 1303 granisetron (Kytril) tablet 1 mg For doses requiring partial, prepackaged tablet segment use separate record. This entry is for whole tablet doses only., 1 mg, Oral, Q24H PRN breakthrough nausea/vomiting, Starting on Tue03/24/22 at 0730 Until Tue03/24/22 at 1303 insulin lispro (HUMALOG) 100 units/mL single dose 300 Units (COMPLETED) 0900 (Given $ - Provider: Radha Coello, PHARM D - Comment: Utilized by CDE for pump fill) 300 Units, Subcutaneous, ONCE PRN blood sugar >, insulin pump fill/initiation reinitiation of home therapy, Starting on Tue03/23/22 at 1000 For 1 dose Until Tue03/24/22 at 1000 lorazepam (Ativan) tablet 0.5 mg 175 (Given $ - Provider: Radha Wolf RN) 153 (Given $ - Provider: Maranda Anton RN - Comment: scanner not working in room)2222 (Given $ - Provider: Janet Prabhakar RN) 0.5 mg, Oral, Q8H PRN anxiety: 1st line, Starting on Tue03/22/22 at 1642 Until Tue03/24/22 at 1303 melatonin tablet 6 mg 2014 (Given $ - Provider: Janet Prabhakar , NICOLE) 2222 (Given $ - Provider: Janet Prabhakar, RN) 6 mg, Oral, BEDTIME PRN sleeplessness, S tarting on Tue03/16/22 at 2310 Until Tue03/24/22 at 1303 ondansetron (Zofran) 2 mg/mL inj 4 mg 08 (Given $ - Provider: Ailyn Corona, NICOLE) 4 mg, Intravenous Q6H PRN nausea, vomiti ng, other, nausea: 1st line, Starting on Tue03/13/22 at 2350 Until Tue03/24/22 at 1303, 2 mL promethazine (Phenergan) 12.5 mg in 0.9 % NaCl (NS) 50 mL IV piggyback(Linked Group 1) 2219 (See Alternative - Provider: Janet Prabhakar RN) 12.5 mg, Intravenous, at 100 mL/hr Admin ister over 30 Minutes, Every 6 hours PRN nausea, vomiting, Starting on Tue03/19/22 at 0836 Until Tue03/24/22 at 1303, 50 mL promethazine (Phenergan) 6.25 mg in 0.9 % NaCl (NS) 50 mL IV piggyback(Linked Group 1) 2220 (New Bag/Bottle/Cartridge $ - Provi akash: Janet Prabhakar RN) 6.25 mg, Intravenous, at 100 mL/hr Admin ister over 30 Minutes, Every 6 hours PRN nausea, vomiting, Starting on Tue03/19/22 at 0836 Until Tue03/24/22 at 1303, 50 mL promethazine (PHENERGAN) tablet 12.5 mg Use with caution in geriatric patients, 12.5 mg, Oral, Q6H PRN nausea: 3rd line, nausea or vomiting, Starting on Tue03/19/22 at 0836 Until Tue03/24/22 at 1303 Linked Groups Order Group 1: promethazine (Phenergan) 6.25 mg in 0.9 % NaCl (NS) 50 mL IV piggybackJump to med 6.25 mg, Intravenous, at 100 mL/hr Administer over 30 Minutes, Every 6 hours PRN nausea, vomiting, Starting on Tue03/19/22 at 0836 Until Tue03/24/22 at 1303, 50 mL Or promethazine (Phenergan) 12.5 mg in 0.9 % NaCl (NS) 50 mL IV piggybackJump to med 12.5 mg, Intravenous, at 100 mL/hr Administer over 30 Minutes, Every 6 hours PRN nausea, vomiting, Starting on Tue03/19/22 at 0836 Until Tue03/24/22 at 1303, 50 mL documented in this encounter Care Teams Grain I Farmworker Relationship Specialty Start Date End Date Flo Peña MD PCP - General Internal Medicine 01/03/22 [address] [place] [address] documented as of this encounter
--- OUTSIDE RECORDS SUMMARY | 2022-07-24 16:37 | External Medical Summary | Encounter Summary ---
:1985 Author Organization [facility] [place] [address] Care Team Providers Name Role Phone Flo Peña MD Primary Care Provider Reason for Visit Reason Comments Refill Request Encounter Details Date Type Department Care Team Description 02/03/2022 Refill [facility] d/Surg Clarice Merino DO Refill Request [address] [facility] 2002 [facility] [place], [place] [phone] (Wo rk) Social History Tobacco Use Types Packs/Day Years Used Date Smoking Tobacco: Former Cigarettes Quit : 02/12/2011 Alcohol Use Standard Drinks/Week Comments Not Currently 0 (1 standard drink = 0.6 oz pure alcoho l) Sex Assigned at Date Recorded Not on file documented as of this encounter Plan of Treatment Upcoming Encounters Date Type Specialty Care Team Description 07/26/2022 Office Visit Endocrinology Angela Negro MD [address] [facility] [address] [place] [phone] (Wo rk) documented as of this encounter Visit Diagnoses Not on filedocumented in this encounter Care Teams Fish Hatchery Worker Relationship Specialty Start Date End Date Flo Peña MD PCP - General Internal Medicine 01/03/22 [address] [place] [address] documented as of this encounter
--- OUTSIDE RECORDS SUMMARY | 2022-07-24 16:37 | External Medical Summary | Encounter Summary ---
:1985 Author Organization [facility] Address [place] [address] Care Team Providers Name Role Phone Flo Peña MD Primary Care Provider Reason for Visit Reason Comments Refill Request Encounter Details Date Type Department Care Team Description 02/05/2022 Refill [facility] d/Surg Clarice Merino DO Refill Request 2002 [facility] 2002 [facility] [place], [place] [phone] (Wo rk) Social History Tobacco Use Types [...] Office Visit Endocrinology Angela Negro MD [address] [facility] [address] [place] [phone] (Wo rk) documented as of this encounter Visit Diagnoses Not on filedocumented in this encounter Care Teams Organ Pipe Maker Metal Relationship Specialty Start Date End Date Flo Peña MD PCP - General Internal Medicine 01/03/22 [address] [place] [address] documented as of this encounter
--- OUTSIDE RECORDS SUMMARY | 2022-07-24 16:37 | External Medical Summary | Encounter Summary ---
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) Hypertensive chronic kidney disease with stage 1 through stage 4 chronic kidney disease, or unspecified chronic kidney disease Flo Peña MD Rodebaugh, Maria R, MD Procedures REFERRAL TO ENDOCRINOLOGY [address] [facility] [address] [phone] [place] [address] Phone: Fax: Referral ID Status Reason Start Date Expiration Date Visits V isits Requested Authorized [id number] Authorized 04/15/2022 04/13/2023 99 99 Encounter Details Date Type Department Care Team Description 04/15/2022 Transcribe Orders [facility] Rona Peña MD Type 1 diabetes mellitus with diabetic c hronic kidney disease (CMS/HCC) (Primary Dx); Diabetes & [address] Hypertensive chronic kidney disease with stage 1 through stage 4 chronic kidney disease, or unspecified chronic kidney disease Endocrinology [place], [place] [address] [facility] [phone] [place] [address] [place] (Work) [phone] Social History Tobacco Use Types Packs/Day Years [...] Office Visit Endocrinology Angela Negro MD [address] [place] [phone] (Wo rk) documented as of this encounter Visit Diagnoses Diagnosis Type 1 diabetes mellitus with diabetic c hronic kidney disease (CMS/HCC) - Primary Type I (juvenile type) diabetes mellitus with renal manifestations, not stated as uncontrolled Hypertensive chronic kidney disease with stage 1 through stage 4 chronic kidney disease, or unspecified chronic kidney d isease documented in this encounter Care Teams Wheel Blocker Relationship Specialty Start Date End Date Flo Peña MD PCP - General Internal Medicine 01/03/22 [address] [place] [phone] documented as of this encounter
--- OUTSIDE RECORDS SUMMARY | 2022-07-24 16:37 | External Medical Summary | Encounter Summary ---
:1985 Author Organization [facility] [place] [address] Care Team Providers Name Role Phone Flo Peña MD Primary Care Provider Reason for Visit Reason Comments Refill Request Encounter Details Date Type Department Care Team Description 01/23/2022 Refill [facility] d/Surg Clarice Merino DO Refill Request 2002 [facility] 2002 [facility] [place], [place] [phone] (Wo rk) Social History Tobacco Use Types Packs/Day Years Used Date Smoking Tobacco: Former Cigarettes Quit : 02/12/2011 Alcohol Use Standard Drinks/Week Comments Not Currently 0 (1 standard drink = 0.6 oz pure alcoho l) Sex Assigned at Date Recorded Not on file COVID-19 Exposure Response Date Recorded In the last 10 days, have you been in contact Unable to asse ss 01/03/2022 3:38 PM PDT with someone who was confirmed or suspected to have Coronavirus/COVID-19? documented as of this encounter Plan of Treatment Upcoming Encounters Date Type Specialty Care Team Description 07/26/2022 Office Visit Endocrinology Angela Negro MD [address] [address] [place] [phone] (Wo rk) documented as of this encounter Visit Diagnoses Not on filedocumented in this encounter Care Teams Residential Door Installer Relationship Specialty Start Date End Date Flo Peña MD PCP - General Internal Medicine 01/03/22 [address] [place] [address] documented as of this encounter
--- OUTSIDE RECORDS SUMMARY | 2022-07-24 16:38 | External Medical Summary | Encounter Summary ---
:1985 Author Organization [facility] [place] [address] Care Team Providers Name Role Phone Flo Peña MD Primary Care Provider Reason for Referral Home Health Services (Routine) - Closed Specialty Diagnoses / Procedures Referred By Contact Refer red To Contact Home Health Diagnoses Acute renal failure with tubular necrosis (CMS/HCC) Clarice Merino DO HOME Procedures REFERRAL TO HOME HEALTH [address] [place] [address] [place] [address] Referral ID Status Reason Start Date Expiration Date Visits Requ ested Visits Authorized [id number] Closed 01/11/2022 04/11/2022 3 3 adiology Services (Routine) - Closed Specialty Diagnoses / Procedures Referred By Contact Refer red To Contact Radiology Procedures Zachary Roe MD, PhD XR KUB TO CHECK FEEDING TUBE [address] [place] [address] Referral ID Status Reason Start Date Expiration Date Visits Requ ested Visits Authorized [id number] Closed 01/05/2022 01/05/2023 1 1 Radiology Services (Routine) - Closed Specialty Diagnoses / Procedures Referred By Contact Refer red To Contact Radiology Procedures Mustapha Leonard, US RETROPERITONEAL [address] [place] [address] Referral ID Status Reason Start Date Expiration Date Visits Requ ested Visits Authorized [id number] Closed 01/03/2022 01/03/2023 1 1 Radiology Services (Emergency) - Closed Specialty Diagnoses / Procedures Referred By Contact Refer red To Contact Radiology Procedures Dimas Townsend MD XR CHEST 1 VIEW - PA OR AP [address] [place], [place] [phone] Referral ID Status Reason Start Date Expiration Date Visits Requ ested Visits Authorized [id number] Closed 01/03/2022 01/03/2023 1 1 Reason for Visit Authorization - Inpatient Specialty Diagnoses / Procedures Referred By Contact Refer red To Contact Diagnoses Acute renal failure (ARF) ([facility]/HCC) Respiratory failure ([facility]/HCC) ARF Dimas Townsend MD [address] [place], [place] [address] Referral ID Status Reason Start Date Expiration Date Visits Requ ested Visits Authorized [id number] 1 1 Encounter Details Date Type Department Care Team Description 01/03/2022 - Hospital Encounter [facility] Dimas Townsend MD [address] [place] [address] Acute renal failure 01/11/2022 Med/Surg Zachary Roe MD, PhD [address] [place] [phone] (ARF) (CMS/HCC) [address] DO [address] [facility] [place] [address] [N17.9] [facility] Clarice Merino DO [address] [facility] [place] [id number] [place] [address] Social History Tobacco Use Types Packs/Day Years [...] have Coronavirus/COVID-19? documented as of this encounter Last Filed Vital Signs Vital Sign Reading Time Taken Comments Blood Pressure 119/71 01/11/2022 11:02 AM PDT Pulse 82 01/11/2022 11:02 AM PDT Temperature 36.8 C (98.2 F) 01/11/2022 11:02 AM PDT Respiratory Rate 16 01/11/2022 11:02 AM PDT Oxygen Saturation 98% 01/11/2022 11:02 AM PDT Inhaled Oxygen Concentration - - Weight 70 kg (154 lb 5.2 oz) 01/10/2022 6:00 AM PDT Height 175.3 cm (5' 9") 01/03/2022 1:00 PM PDT Body Mass Index 22.79 01/03/2022 1:00 PM PDT documented in this encounter Discharge Summaries Clarice Merino DO - 01/11/2022 4:15 PM PDT Images from the original note were not included. [facility] DISCHARGE SUMMARY Patient Name: Mauri Levine DOB/Age: 6 1985 / 36 year old Patient Admitting Provider: Dimas Townsend MD Discharging Provider: No att. providers found Clarice Merino DO Primary Care Physician at Discharge: Flo Peña MD PCP Admission Date: 01/03/2022 Discharge Date: 01/11/2022 Admission Diagnoses: Acute renal failure (ARF) (CMS/HCC) [N17.9] Respiratory failure ([facility]) [J96.90] Discharge Diagnoses: 1. DMT1 with gastroparesis 2. Major depression 3. HHS with severe volume depletion, contraction alkalosis, and ROSALIO 4. CKD stage III, diabetic nephropathy suspected 5. Suspected meningitis/encephalitis likely aseptic 6. Acute encephalopathy Principal Problem: Metabolic alkalosis Active Problems: Acute renal failure (ARF) ([facility]) Respiratory failure ([facility]) Stage 3a chronic kidney disease ([facility]) Hyperosmolar hyperglycemic state (HHS) ([facility]) Anemia Prolonged Q-T interval on ECG Non compliance w medication regimen HOSPITAL COURSE This is a 36 year old male with H brittle diabetes, gastroparesis, HTN, convulsive seizures/syncope, and gastric stimulator who was initially admitted to outside hospital with concerns for ROSALIO and significant metabolic alkalosis. Within the first 24 hours of his stay he became further altered such that he was intubated, possibly following a suspected aspiration event while vomiting.Due to his escalating level of care and possible need for emergent dialysis he was transferred to [facility] on 01/03. In ICU he self extubated and noted to be hypertensive. Glucose levels remained controlled on insulin drip being treated for HHS. LP was pursued as an infectious cause of his obtundation and fevers with indeterminate findings for meningitis. Empiric ceftriaxone, Flagyl, Zosyn and vancomycin werecontinued and de-escalated with completion of 7-day course. Nephrology was consulted for electrolytederangements and ROSALIO which improved with aggressive fluid hydration. Glucose levels remain controlled on Lantus 10 units and mealtime insulin. clinical trial educator was consulted and teaching done at time of discharge. His home pump was not restarted as he was missing testing supplies. For his major depression psychiatry was consulted recommending outpatient therapy. Mom voiced concerns as he is not taking care of himself which at this point is a choice without reversible cause. I did address this with him and he said he would do better, take his insulin and follow-up with outpatient psychiatry. DISCHARGE INSTRUCTIONS Discharge Instructions 1. Follow-up with Dr. Pñea and ask about psychiatry referral as well as home health Discharge Medications Medication List START taking these medications famotidine 10 MG Tabs Commonly known as: PEPCID Take 1 Tablet by mouth twice daily for 30 days. mirtazapine 15 MG Tbdp Commonly known as: Remeron SolTab Take 1 Tablet by mouth at bedtime for 30 days. venlafaxine 75 MG Cp24 Commonly known as: Effexor XR Take 3 Capsules by mouth every morning with breakfast for 30 days. CONTINUE taking these medications carvedilol 3.125 MG Tabs Commonly known as: Coreg cloNIDine 0.2 MG/24HR Ptwk Commonly known as: Catapres lisinopril 10 MG Tabs ondansetron 4 MG Tbdp Commonly known as: Zofran ODT STOP taking these medications fluoxetine 20 MG Caps Commonly known as: PROzac ketamine 50 mg/mL Soln Commonly known as: KETALAR lorazepam 1 MG Tabs Commonly known as: Ativan Where to Get Your Medications These medications were sent to [facility] [place] [address], [place] [address] [place] [address] [place] [phone] famotidine 10 MG Tabs mirtazapine 15 MG Tbdp venlafaxine 75 MG Cp24 Discharge Disposition Home with Condition of Patient on Discharge Stable Consults O CONSULT TO PHARMACY O CONSULT/ASSESSMENT TO NUTRITION [facility] O IP CONSULT AND TREAT Procedures: None Important Radiology Results: { XR KUB TO CHECK FEEDING TUBE Final Result IMPRESSION: 1. The radiopaque tip of the feeding tube overlies the fundus of the stomach. 2. Cholelithiasis. CHEST 1 VIEW - PA OR AP Final Result IMPRESSION: 1. No evidence of acute cardiopulmonary disease. 2. Endotracheal tube terminates 3.3 cm from the angella. RETROPERITONEAL Final Result IMPRESSION: 1. Diffusely increased renal parenchymal echogenicity, compatible with medical renal disease. 2. No hydronephrosis. Code Status at Discharge Code Status: Full Code Physical Exam at Discharge BP 119/71 | Pulse 82 | Temp (Src) 98.2 (Temporal) | Resp 16 | Ht 5' 9" (1.753 m) | Wt 154 lb 5.2 oz (70 kg) | SaO2 98% PHYSICAL EXAM: GEN: Nontoxic appearing in no acute distress. EYES: PERRL with brisk response. No scleral icterus. ENT: Moist mucous membranes. Hearing is intact. CV: Normal S1-S2. No murmur. No pedal edema. PULM: Good air entry b/l. Symmetric rise of chest with inspiration. GI: Normoactive bowel sounds. Nontender to palpation. PSYCH: Affect is normal. Patient is cooperative. Speech is fluent. Total time spent on discharge > 30 mins Clarice Merino DO 6:08 PM 01/19/2022 documented in this encounter Discharge Instructions Discharge InstructionsKian Lara LMSW - 01/11/2022 3:13 PM PDT Adult Mental Health Services No reviews Mental health service [address] [facility] [address] 5[address] [employer] [facility] (1) Mental health service [address] Medicare accepted [facility] [address] In [facility] [address] [facility] [address] [facility] [phone] [facility], [facility] [address] [facility], [facility] [address] [facility] [employer] [facility] [place], [place] Medicare/Medicaid accepted [facility] [address] [facility] [address] [facility] [address] Open ? Closes 5PM [facility] [address] Medicare accepted Gareth Mohan, PhD [address] [facility]: Tristan Mooney MD [address] [phone] Medicare/Medicaid accepted AttachmentsThe following attachments cannot be sent through Care Everywhere. Diabetes Mellitus and Nutrition Adult (Sinhala)Blood Glucose Monitoring Adult (Sinhala)documented in this encounter Medications at Time of Discharge Medication Sig Dispensed Refills Start Date End Date fluoxetine (PROZAC) 20 Take 20 mg by mouth 0 12/17 MG Caps once daily. cloNIDine (CATAPRES) Place 1 Patch onto 0 022 0.2 MG/24HR Patch the skin every week. Weekly tuesday ondansetron (ZOFRAN Take 4 mg by mouth 0 12/09/ 22 ODT) 4 MG Tablet every 8 hours as Dispersible needed. NAUSEA AND VOMITING famotidine (PEPCID) 10 Take 1 Tablet by 30 Tablet 0 022 02/10/2022 MG Tab mouth twice daily for 30 days. mirtazapine (REMERON Take 1 Tablet by 30 Tablet 0 2 02/10/2022 SOLTAB) 15 MG Tablet mouth at bedtime for Dispersible 30 days. venlafaxine (EFFEXOR Take 3 Capsules by 90 Capsule 0 022 02/11/2022 XR) 75 MG Capsule SR 24 mouth every morning HR with breakfast for 30 days. carvedilol (COREG) Take 3.125 mg by 0 10/23/2020 03/13/2022 3.125 MG Tab mouth twice daily. lisinopril 10 MG Tab Take 1 Tablet by 0 03/13/2022 mouth daily at 1100. documented as of this encounter Progress Notes Khari Melendrez MD - 01/11/2022 3:43 PM PDT DAILY PSYCHIATRY PROGRESS NOTE Patient Name: Mauri Levine Patient Admission Date: 01/03/2022 1:17 PM Attending Provider: Clarice Merino DO Length of Stay in Days: 8 DOS: 01/11/2022 Identification/CC: The patient is a 36-year-old, , male with a history of depression, anxiety, and multiple medical problems related to diabetes. He was transferred to this facility for medical management of DKA, AKA, HTN, gastroparesis, brittle diabetes, encephalopathy, and ruling out meningitis. His physical and mental status have improved, but there is still concern that he suffers from an underlying depressive illness that is interfering with his functioning day to day and adherence to medical therapies. Psychiatric consultation was requested for diagnostic clarification, assessment of suicide risk, and treatment recommendations. He was seen today for routine inpatient psychiatric follow-up in consultation on the medical floor. He was seen with his mother at the bedside withhis permission. Subjective: Patient's mental status has still not returned to his normal state, according to the patient and his mother. She said that his alertness, awareness of his environment, inability to respond quickly to questions is still impaired. This has been waxing and waning, indicating a probable component of delirium. His blood glucose levels have also varied widely, which may be a contributing factorto mental status changes. He has not been feeling well physically either, having an episode of nausea and emesis this morning. He is also still very fatigued and is sleeping a lot. ROS: Patient said he slept better last night. Although his appetite is "not great", he has been eating over three fourths of his meals. Energy level and motivation are still low. No hallucinations or delusions. Medications Scheduled Medications: lisinopril, 20 mg, Oral, daily venlafaxine, 225 mg, Oral, qam cc famotidine, 10 mg, Oral, bid insulin lispro, 0-8 Units, Subcutaneous, tid cc mirtazapine, 15 mg, Oral, bedtime carvedilol, 3.125 mg, Oral, bid cc chlorhexidine, 15 mL, Mouth/Throat, bid heparin, 5,000 Units, Subcutaneous, q8h PRN Medications: PRN medications: hydrALAZINE, acetaminophen, dextrose Allergies Prochlorperazine, Silver, Iodinated diagnostic agents, Nsaids, and Metoclopramide Last Recorded Vitals and Intake: BP 119/71 | Pulse 82 | Temp (Src) 98.2 (Temporal) | Resp 16 | Ht 5' 9" (1.753 m) | Wt 154 lb 5.2 oz (70 kg) | SaO2 98% Vitals: 01/10/22 2039 01/10/22 2352 01/11/22 0730 01/11/22 1102 BP: (!) 152/88 (!) 161/93 (!) 196/96 119/71 Pulse: 70 67 75 82 Resp: 15 16 16 16 Temp: 98.1 F (36.7 C) 97.9 F (36.6 C) 97.3 F (36.3 C) 98.2 F (36.8 C) TempSrc: Temporal Oral Temporal Temporal SpO2: 98% 98% 98% 98% Weight: Height: Breakfast (%): 100 % Lunch (%): 100 % Dinner (%): 75 % Mental Status Exam: APPEARANCE/BEHAVIOR: Poor grooming and hygiene. Drowsy and did not interact much. Deferred to his mother. GAIT: Not observed. Lying in a semifetal position in his bed with covers pulled up covering his face. MUSCULOSKELETAL: No evidence of EPS, tics, or tremors. SPEECH: Normal rate, rhythm, and volume. AFFECT: Tired, somber. MOOD: Less depressed and anxious. THOUGHT PROCESS: Could not assess. THOUGHT CONTENT: He has been denying suicidal thoughts and psychotic symptoms. ORIENTATION: Orientedto self, circumstances, and location. Knows approximate date. MEMORY: Immediate and remote recall were grossly intact. INTELLECTUAL FUNCTIONING: average. ATTENTION AND CONCENTRATION: Diminished by obtundation. JUDGMENT/INSIGHT: Adequate. Assessment/Formulation: The patient's genetic predisposition for depression and anxiety is unknown because he is adopted. However, he has had previously diagnosed depression and anxiety, which may have been partially treated with antidepressants, but not at full dosages. He has had multiple losses/stresses in the past year, and his current living situation is less than ideal, and seems to leave him with a variety of unmet needs. He has ongoing medical problems and physical suffering no doubt contribute to his depressive state and his anxiety. Lack of adherence to his treatment regimen we have also undermined treatment response. Diagnoses: 1. Major depressive disorder, recurrent, severe, without psychotic features. 2. Generalized anxiety disorder. 3. Delirium (encephalopathy) due to multiple medical problems, (resolved, but could still wax and wane due to ongoing medical problems). 4. Multiple medical problems related to diabetes mellitus.. Treatment Plan/Recommendations: 1. Once again, the patient and his mother were educated regarding his psychiatric diagnoses, prognosis, and treatment options, along with his mother at the bedside. She was supportive and understandingof his conditions. We also reviewed some of the educational handouts that were given as a resource. 2. Continue Effexor XR 225 mg daily as his primary treatment for depression and anxiety. 3. Continue treatment with Remeron 15 mg nightly for augmentation of antidepressant treatment with Effexor, and to support better sleep and appetite. He had some morning grogginess, but it was otherwise well tolerated. Increasing to 30 mg nightly should be considered within 2 weeks if his symptoms arenot in remission. 4. Consider treatment with gabapentin 300 mg up to 3 times daily as needed for anxiety. (It is unclear how beneficial this was to the patient, but it is worth a trial if needed). 5. Benzodiazepines will be avoided until more is known about whether or not he has had a problem with substance abuse in the past. 6. Psychiatry will provide concurrent care daily during his hospitalization, although psychiatric hospitalization is not currently indicated. 7. Supportive counseling in today's visit focused on helping him and his mother in a better understanding of his diagnoses and the rationale for the treatment regimen listed above. Case was also discussed with social work in order to provide a list of local mental health resources. Information was given to his mother to be an advocate regarding his psychotropic medications. She has suffered from depression herself, and seemed to have a good understanding. Duration of Service: >35 minutes (over half of which was spent in supportive counseling and education of the patient and his mother and in coordination of care with social work staff). This note was created with the [employer] voice recognition software. It was reviewed after dictation but there may be mistakes inherent with this software that may have been missed. Please review carefully. Khari Jolley MD Psychiatrist 01/11/2022 Duyen [place]STEO [place] - 01/11/2022 11:44 AM PDT Received consult as patient wears an insulin pump. Noted patient has history of psych issues, lives in a camper on his parent's property. Spoke with patient's mom who told me that he doesn't take care of himself or his diabetes. He wears the Tandem insulin pump, but is out of the Dexcom sensors so isn't using Control IQ technology at this time. He does have a back up glucometer that he checks his blood sugars with, so declined taking an extra one home. Says his insurance just changed to a [facility] plan plus [place]. He couldn't tell me who his supplier is. Says he has plenty of pump supplies and is wearing his pump right now. Patient's BG >1300 upon admission; he was out of insulin for several days. When I asked him why, he said he wasn't feeling well and didn't feel like changing it. Mom at bedside and says this happens often. Noted episode of hypoglycemia yesterday; patient was given 10 units of Lantus in the morning and hooked his pump back up yesterday, therefore received extra insulin. Reminded him to set a temporary basal rate until Lantus wears off (~24 hours after injection) when coming off injections. Educated patient on the following: -troubleshooting hyperglycemia while on a pump (ketone testing, change out infusion sets, not running out of insulin, inspecting cannula/tubing, etc.) -reminded to change infusion sets every 2-3 days -advised him to call his insurance as it just changed and inquire about whether or not his Dexcom iscovered under prescription benefits or medical plan benefits. The provider that manages his diabeteswill need to write for those supplies. Tran Marcano RN - 01/10/2022 6:01 PM PDT Patient sugar read 47, patient oriented but drowsy. RN gave PRN glucose and rechecked sugar which was 88. RN instructed patient to turn pump off. RN asked patient what he would do at home and he stated, "eat sugar packets I have". She asked if the pump would automatically turn off which he replied no he would have to do it. RN informed MD, no new orders. A Merino DO - 01/10/2022 12:28 PM PDT Images from the original note were not included. [facility] PROGRESS NOTE Patient Name: Mauri Levine : 1985 Admit Date: 01/03/2022 PCP: Flo Peña MD Date of Service: 01/10/2022 Hospital Day: 8 HOSPITAL COURSE This is a 36 year old male with PMH brittle diabetes, gastroparesis, HTN, convulsive seizures/syncope, and gastric stimulator who was initially admitted to outside hospital with concerns for ROSALIO and significant metabolic alkalosis. Within the first 24 hours of his stay he became further altered such that he was intubated, possibly following a suspected aspiration event while vomiting.Due to his escalating level of care and possible need for emergent dialysis he was transferred to [facility] on 01/03. In ICU he self extubated and noted to be hypertensive. Glucose levels remained controlled on insulin drip being treated for HHS. LP was pursued as an infectious cause of his obtundation and fevers with indeterminate findings for meningitis. Empiric ceftriaxone, Flagyl, Zosyn and vancomycin werecontinued. Nephrology was consulted for electrolyte derangements and ROSALIO. ASSESSMENT / PLAN ASSESSMENT/PLAN: 1. DMT1 with gastroparesis. Much better control on Lantus 10 q12 + 8 units mealtime. Patient decidedto use his pump which will start today once battery is charged. 2. Major depression. Psychiatry help appreciated. Tolerating Effexor, Remeron, and 3. HHS with severe volume depletion, contraction alkalosis, and ROSALIO. sCr stable on Lisinopril. 4. CKD stage III, diabetic nephropathy suspected. Baseline macroalbuminuria. 5. Suspected meningitis/encephalitis. Likely aseptic. CSF NGTD. Continue empiric ceftriaxone/Flagyl d7/7 as recommended by ICU. 6. Acute encephalopathy, resolved. Repeat PT/OT eval for dc planning. VTE Prophylaxis: Heparin Code Status: Full Code Disposition: Mom concerned that he is still unsteady and has to walk from the camper to the in the main house. SUBJECTIVE CC/ OVERNIGHT EVENTS: No new complaints. Glucose <100 this morning. ROS: GEN: -fever +appetite changes CV: -CP -edema OBJECTIVE PHYSICAL EXAM: GEN: Unkempt and chronically ill-appearing. EYES: PERRL with brisk response. No scleral icterus. ENT: Poor dentition. Moist mucous membranes. Hearing is intact. CV: Normal S1-S2. No murmur. Generalized edema. PULM: Good air entry b/l. Symmetric rise of chest with inspiration. GI: Normoactive bowel sounds. Nontender to palpation. PSYCH: Affect is normal. Patient is cooperative. Speech is fluent. BP 144/93 | Pulse 76 | Temp (Src) 97.7 (Temporal) | Resp 14 | Ht 5' 9" (1.753 m) | Wt 154 lb 5.2 oz (70 kg) | SaO2 98% Intake/Output Summary (Last 24 hours) at 01/10/2022 1228 Last data filed at 01/09/2022 2200 Gross per 24 hour Intake 1540 ml Output 1 ml Net 1539 ml SCHEDULED Meds: I have personally reviewed the current medication list. famotidine, 10 mg, bid insulin glargine, 10 Units, qam cc insulin lispro, 0-8 Units, tid cc insulin lispro, 8 Units, tid cc lisinopril, 10 mg, daily mirtazapine, 15 mg, bedtime venlafaxine, 150 mg, qam cc insulin glargine, 10 Units, bedtime carvedilol, 3.125 mg, bid cc ceftriaxone (ROCEPHIN) IV, 2 g, q12s metroNIDAZOLE, 500 mg, q8h chlorhexidine, 15 mL, bid heparin, 5,000 Units, q8h Results from last 7 days Lab Units 01/10/22 0612 01/09/22 0526 01/08/22 0507 WBC x10E3/uL 11.32* 11.02* 10.50 RBC x10E6/uL 4.23* 4.10* 4.03* HGB g/dL 11.7* 11.3* 11.2* HCT % 36.1* 35.0* 34.6* MCV fL 85.3 85.4 85.9 MCH pg 27.7 27.6 27.8 RDW % 13.0 12.8 13.0 PLT x10E3/uL 243 200 172 Results from last 7 days Lab Units 01/10/22 0612 01/09/22 0526 01/08/22 0507 01/03/22 1330 01/03/22 1328 CREATININE mg/dL 1.60* 1.65* 1.85* < > 4.99* CREATININE POC -- -- -- < > -- BUN mg/dL 28* 42* 43* < > 71* NA mmol/L 139 132* 136 < > 135* K mmol/L 3.8 4.5 4.3 < > 3.1* CL mmol/L 103 99 102 < > 83* CO2 mmol/L 26 22* 24 < > 40* CA mg/dL 7.9* 7.9* 8.2* < > 6.8* PROTEIN g/dL -- -- -- -- 5.6* ALK PHOS U/L -- -- -- -- 107 SGPT U/L -- -- -- -- 28 SGOT U/L -- -- -- -- 52* < > = values in this interval not displayed. Lab Results Component Value Date BLDCULT No Growth in 4 Days 01/03/2022 BLDCULT No Growth in 4 Days 01/03/2022 GS No White Blood Cells seen 01/03/2022 GS No organisms seen 01/03/2022 Lab Results Component Value Date GLUCPOCT 79 01/10/2022 GLUCPOCT 146 (H) 01/09/2022 GLUCPOCT 123 (H) 01/09/2022 GLUCPOCT 300 (H) 01/09/2022 TIME: Time spent on evaluating patient, reviewing chart and coordinating care: >30 mins Clarice Merino DO 12:28 PM 01/10/2022 Khari Melendrez MD - 01/10/2022 10:35 AM PDT DAILY PSYCHIATRY PROGRESS NOTE Patient Name: Mauri Levine Patient Admission Date: 01/03/2022 1:17 PM Attending Provider: Clarice Merino DO Length of Stay in Days: 7 DOS: 01/10/2022 Identification/CC: The patient is a 36-year-old, , male with a history of depression, anxiety, and multiple medical problems related to diabetes. He was transferred to this facility for medical management of DKA, AKA, HTN, gastroparesis, brittle diabetes, encephalopathy, and ruling out meningitis. His physical and mental status have improved, but there is still concern that he suffers from an underlying depressive illness that is interfering with his functioning day to day and adherence to medical therapies. Psychiatric consultation was requested for diagnostic clarification, assessment of suicide risk, and treatment recommendations. He was seen today for routine inpatient psychiatric follow-up in consultation on the medical floor. He was seen with his mother at the bedside at his request. Subjective: Patient has been more stable mentally, emotionally, and physically over the past 24 hours that he was prior to admission. He still acknowledges depression and anxiety but denies suicidal thoughts. He has some hope for the future and would rather be alive. He took his antidepressant medications as prescribed. He reported no noticeable side effects other than possibly some residual morning grogginess from his first dose of Remeron. ROS: Patient said he slept better last night. Although his appetite is "not great", he has been eating over three fourths of his meals. Energy level and motivation are still low. No hallucinations or delusions. Medications Scheduled Medications: [START ON 01/11/2022] venlafaxine, 225 mg, Oral, qam cc famotidine, 10 mg, Oral, bid insulin glargine, 10 Units, Subcutaneous, qam cc insulin lispro, 0-8 Units, Subcutaneous, tid cc insulin lispro, 8 Units, Subcutaneous, tid cc lisinopril, 10 mg, Oral, daily mirtazapine, 15 mg, Oral, bedtime insulin glargine, 10 Units, Subcutaneous, bedtime carvedilol, 3.125 mg, Oral, bid cc ceftriaxone (ROCEPHIN) IV, 2 g, Intravenous, q12s chlorhexidine, 15 mL, Mouth/Throat, bid heparin, 5,000 Units, Subcutaneous, q8h PRN Medications: PRN medications: hydrALAZINE, acetaminophen, dextrose Allergies Prochlorperazine, Silver, Iodinated diagnostic agents, Nsaids, and Metoclopramide Last Recorded Vitals and Intake: BP 144/93 | Pulse 76 | Temp (Src) 97.7 (Temporal) | Resp 14 | Ht 5' 9" (1.753 m) | Wt 154 lb 5.2 oz (70 kg) | SaO2 98% Vitals: 06/25/22 2321 01/10/22 0600 01/10/22 0727 01/10/22 1207 BP: 119/69 132/59 (!) 144/93 BP Site: Right upper arm Pt Position for BP: Supine Pulse: 87 90 76 Resp: 14 14 14 Temp: 97.7 F (36.5 C) 97.9 F (36.6 C) 97.7 F (36.5 C) TempSrc: Temporal Temporal Temporal SpO2: 98% 97% 98% Weight: 154 lb 5.2 oz (70 kg) Height: Breakfast (%): 100 % Lunch (%): 100 % Dinner (%): 75 % Mental Status Exam: APPEARANCE/BEHAVIOR: Poor grooming and hygiene. Cooperative. Good eye contact. Seemed sincere in hisresponses. GAIT: Not observed. Sitting comfortably in his bed. MUSCULOSKELETAL: No evidence of EPS, tics, or tremors. SPEECH: Normal rate, rhythm, and volume. AFFECT: Incongruent with his mood. He seemed quite depressed, but was trying to force a smile. MOOD: Depressed and anxious. THOUGHT PROCESS: Logical and linear. No looseness of associations. THOUGHT CONTENT: Denies current delusions or hallucinations. Denies active suicidal ideation, plan, or intent. Acknowledges some passive wishes in recent months. ORIENTATION: Oriented to self, circumstances, and location. Knows approximate date. MEMORY: Immediate and remote recall were grossly intact. INTELLECTUAL FUNCTIONING: average. ATTENTION AND CONCENTRATION: Fairly good. JUDGMENT/INSIGHT: Adequate. Assessment/Formulation: The patient's genetic predisposition for depression and anxiety is unknown because he is adopted. However, he has had previously diagnosed depression and anxiety, which may have been partially treated with antidepressants, but not at full dosages. He has had multiple losses/stresses in the past year, and his current living situation is less than ideal, and seems to leave him with a variety of unmet needs. He has ongoing medical problems and physical suffering no doubt contribute to his depressive state and his anxiety. Lack of adherence to his treatment regimen we have also undermined treatment response. Diagnoses: 1. Major depressive disorder, recurrent, severe, without psychotic features. 2. Generalized anxiety disorder. 3. Delirium (encephalopathy) due to multiple medical problems, (resolved, but could still wax and wane due to ongoing medical problems). 4. Multiple medical problems related to diabetes mellitus.. Treatment Plan/Recommendations: 1. Once again, the patient was educated regarding his psychiatric diagnoses, prognosis, and treatment options, along with his mother at the bedside. She was supportive and understanding of his conditions. 2. Increase Effexor XR from 150 mg to 225 mg daily as his primary treatment for depression and anxiety. 3. Continue treatment with Remeron 15 mg nightly for augmentation of antidepressant treatment with Effexor, and to support better sleep and appetite. He had some morning grogginess, but it was otherwise well tolerated. 4. Consider treatment with gabapentin 300 mg up to 3 times daily as needed for anxiety. (It is unclear how beneficial this was to the patient, but it is worth a trial if needed). 5. Benzodiazepines will be avoided until more is known about whether or not he has had a problem with substance abuse in the past. 6. Psychiatry will provide concurrent care daily during his hospitalization, although psychiatric hospitalization is not currently indicated. 7. Supportive counseling in today's visit focused on helping him and his mother in a better understanding of his diagnoses and the rationale for the treatment regimen listed above. He was given educational handouts to reinforce the information we discussed, regarding depression, antidepressants, anxiety management, and strengthening his network of psychosocial support. Patient and his mother would also like to get additional information about mental health resources available in the [place], [place] area, since he has had a difficult time accessing mental health care. Duration of Service: >40 minutes (over half of which was spent in supportive counseling and education of the patient and his mother and in coordination of care with the nursing staff). This note was created with the [employer] voice recognition software. It was reviewed after dictation but there may be mistakes inherent with this software that may have been missed. Please review carefully. Khari Jolley MD Psychiatrist 01/10/2022 Clarice Merino DO - 01/09/2022 10:45 AM PDT Images from the original note were not included. [facility] PROGRESS NOTE Patient Name: Mauri Levine : 1985 Admit Date: 01/03/2022 PCP: Flo Peña MD Date of Service: 01/09/2022 Hospital Day: 7 HOSPITAL COURSE This is a 36 year old male with PMH brittle diabetes, gastroparesis, HTN, convulsive seizures/syncope, and gastric stimulator who was initially admitted to outside hospital with concerns for ROSALIO and significant metabolic alkalosis. Within the first 24 hours of his stay he became further altered such that he was intubated, possibly following a suspected aspiration event while vomiting.Due to his escalating level of care and possible need for emergent dialysis he was transferred to [facility] on 01/03. In ICU he self extubated and noted to be hypertensive. Glucose levels remained controlled on insulin drip being treated for HHS. LP was pursued as an infectious cause of his obtundation and fevers with indeterminate findings for meningitis. Empiric ceftriaxone, Flagyl, Zosyn and vancomycin werecontinued. Nephrology was consulted for electrolyte derangements and ROSALIO. ASSESSMENT / PLAN ASSESSMENT/PLAN: 1. HHS with severe volume depletion, contraction alkalosis, and ROSALIO. sCr normalizing. Resume Lisinopril. 2. DMT1 with gastroparesis. Trends increased due to dietary indiscretion. Add LA 10 units every morning + 8 units mealtime. 3. CKD stage III, diabetic nephropathy suspected. Baseline macroalbuminuria. 4. Depression. Suspect eating disorder. Psychiatry help appreciated. 5. Suspected meningitis/encephalitis. Likely aseptic. CSF NGTD. Continue empiric ceftriaxone/Flagyl d6/7 as recommended by ICU. Stop Decadron. 6. Acute encephalopathy, resolved. VTE Prophylaxis: Heparin Code Status: Full Code Disposition: Start discharge planning SUBJECTIVE CC/ OVERNIGHT EVENTS: Glucose levels were high this morning and I encouraged him to self adminster insulin. ROS: GEN: -fever +appetite changes CV: -CP -edema OBJECTIVE PHYSICAL EXAM: GEN: Unkempt and chronically ill-appearing. EYES: PERRL with brisk response. No scleral icterus. ENT: Poor dentition. Moist mucous membranes. Hearing is intact. CV: Normal S1-S2. No murmur. Generalized edema. PULM: Good air entry b/l. Symmetric rise of chest with inspiration. GI: Normoactive bowel sounds. Nontender to palpation. PSYCH: Affect is normal. Patient is cooperative. Speech is fluent. BP 131/68 | Pulse 70 | Temp (Src) 97 (Temporal) | Resp 16 | Ht 5' 9" (1.753 m) | Wt 154 lb 5.2 oz (70 kg) | SaO2 97% Intake/Output Summary (Last 24 hours) at 01/09/2022 1045 Last data filed at 01/09/2022 0905 Gross per 24 hour Intake 3300 ml Output -- Net 3300 ml SCHEDULED Meds: I have personally reviewed the current medication list. famotidine, 10 mg, bid insulin glargine, 10 Units, qam cc insulin lispro, 8 Units, tid cc lisinopril, 10 mg, daily insulin glargine, 10 Units, bedtime insulin lispro, 0-5 Units, ac hs carvedilol, 3.125 mg, bid cc ceftriaxone (ROCEPHIN) IV, 2 g, q12s metroNIDAZOLE, 500 mg, q8h chlorhexidine, 15 mL, bid heparin, 5,000 Units, q8h Results from last 7 days Lab Units 01/09/22 0526 01/08/22 0507 01/07/22 0320 WBC x10E3/uL 11.02* 10.50 10.28 RBC x10E6/uL 4.10* 4.03* 4.22* HGB g/dL 11.3* 11.2* 11.7* HCT % 35.0* 34.6* 36.0* MCV fL 85.4 85.9 85.3 MCH pg 27.6 27.8 27.7 RDW % 12.8 13.0 13.2 PLT x10E3/uL 200 172 184 Results from last 7 days Lab Units 01/09/22 0526 01/08/22 0507 01/07/22 0320 01/03/22 1330 01/03/22 1328 CREATININE mg/dL 1.65* 1.85* 1.92* < > 4.99* CREATININE POC -- -- -- < > -- BUN mg/dL 42* 43* 42* < > 71* NA mmol/L 132* 136 142 < > 135* K mmol/L 4.5 4.3 4.0 < > 3.1* CL mmol/L 99 102 106 < > 83* CO2 mmol/L 22* 24 25 < > 40* CA mg/dL 7.9* 8.2* 8.5 < > 6.8* PROTEIN g/dL -- -- -- -- 5.6* ALK PHOS U/L -- -- -- -- 107 SGPT U/L -- -- -- -- 28 SGOT U/L -- -- -- -- 52* < > = values in this interval not displayed. Lab Results Component Value Date BLDCULT No Growth in 4 Days 01/03/2022 BLDCULT No Growth in 4 Days 01/03/2022 GS No White Blood Cells seen 01/03/2022 GS No organisms seen 01/03/2022 Lab Results Component Value Date GLUCPOCT 370 (H) 01/09/2022 GLUCPOCT 292 (H) 01/08/2022 GLUCPOCT 349 (H) 01/08/2022 GLUCPOCT 204 (H) 01/08/2022 TIME: Time spent on evaluating patient, reviewing chart and coordinating care: >30 mins Clarice Merino DO 10:45 AM 01/09/2022 Clarice Merino DO - 01/08/2022 1:28 PM PDT Images from the original note were not included. [facility] PROGRESS NOTE Patient Name: Mauri Levine : 1985 Admit Date: 01/03/2022 PCP: Flo Peña MD Date of Service: 01/08/2022 Hospital Day: 6 HOSPITAL COURSE This is a 36 year old male with PMH brittle diabetes, gastroparesis, HTN, convulsive seizures/syncope, and gastric stimulator who was initially admitted to outside hospital with concerns for ROSALIO and significant metabolic alkalosis. Within the first 24 hours of his stay he became further altered such that he was intubated, possibly following a suspected aspiration event while vomiting.Due to his escalating level of care and possible need for emergent dialysis he was transferred to [facility] on 01/03. In ICU he self extubated and noted to be hypertensive. Glucose levels remained controlled on insulin drip being treated for HHS. LP was pursued as an infectious cause of his obtundation and fevers with indeterminate findings for meningitis. Empiric ceftriaxone, Flagyl, Zosyn and vancomycin werecontinued. Nephrology was consulted for electrolyte derangements and ROSALIO. ASSESSMENT / PLAN ASSESSMENT/PLAN: 1. HHS with severe volume depletion, contraction alkalosis, and ROSALIO. Overall prognosis poor due to his underlying eating disorder. Psychiatry consulted. 2. DMT1 with gastroparesis. Glucose levels acceptable on long-acting 10 units nightly and sliding scale. 3. CKD stage III, diabetic nephropathy suspected. Baseline macroalbuminuria. ABBE inhibitor when kidney function stabilizes. 4. Acute encephalopathy. Mom at bedside states he is improving and not at baseline. 5. Suspected meningitis/encephalitis. Likely aseptic. CSF NGTD. Continue empiric ceftriaxone/Flagyl d5/7 as recommended by ICU. Stop Decadron. VTE Prophylaxis: Heparin Code Status: Full Code Disposition: Psychiatry consult in a.m. SUBJECTIVE CC/ OVERNIGHT EVENTS: No complaints this morning, ate a breakfast burrito ROS: GEN: -fever +appetite changes CV: -CP -edema OBJECTIVE PHYSICAL EXAM: GEN: Unkempt and chronically ill-appearing. EYES: PERRL with brisk response. No scleral icterus. ENT: Poor dentition. Moist mucous membranes. Hearing is intact. CV: Normal S1-S2. No murmur. Generalized edema. PULM: Good air entry b/l. Symmetric rise of chest with inspiration. GI: Normoactive bowel sounds. Nontender to palpation. PSYCH: Affect is normal. Patient is cooperative. Speech is slurred. BP 151/84 | Pulse 69 | Temp (Src) 98.2 (Oral) | Resp 20 | Ht 5' 9" (1.753 m) | Wt 152 lb 8.9 oz (69.2 kg) | SaO2 99% Intake/Output Summary (Last 24 hours) at 01/08/2022 1328 Last data filed at 01/07/2022 1527 Gross per 24 hour Intake 89.6 ml Output -- Net 89.6 ml SCHEDULED Meds: I have personally reviewed the current medication list. [START ON 01/10/2022] dexamethasone, 5 mg, once dexamethasone, 5 mg, q12h insulin glargine, 10 Units, bedtime insulin lispro, 0-5 Units, ac hs carvedilol, 3.125 mg, bid cc ceftriaxone (ROCEPHIN) IV, 2 g, q12s metroNIDAZOLE, 500 mg, q8h chlorhexidine, 15 mL, bid famotidine, 20 mg, daily heparin, 5,000 Units, q8h Results from last 7 days Lab Units 01/08/22 0507 01/07/22 0320 01/06/22 0600 WBC x10E3/uL 10.50 10.28 12.90* RBC x10E6/uL 4.03* 4.22* 4.03* HGB g/dL 11.2* 11.7* 11.3* HCT % 34.6* 36.0* 35.6* MCV fL 85.9 85.3 88.3 MCH pg 27.8 27.7 28.0 RDW % 13.0 13.2 13.5 PLT x10E3/uL 172 184 108* Results from last 7 days Lab Units 01/08/22 0507 01/07/22 0320 01/06/22 0654 01/06/22 0600 01/03/22 1330 01/03/22 1328 CREATININE mg/dL 1.85* 1.92* -- 2.15* < > 4.99* CREATININE POC -- -- -- -- < > -- BUN mg/dL 43* 42* -- 42* < > 71* NA mmol/L 136 142 -- 139 < > 135* K mmol/L 4.3 4.0 4.1 -- < > 3.1* CL mmol/L 102 106 -- 105 < > 83* CO2 mmol/L 24 25 -- 22* < > 40* CA mg/dL 8.2* 8.5 -- 8.5 < > 6.8* PROTEIN g/dL -- -- -- -- -- 5.6* ALK PHOS U/L -- -- -- -- -- 107 SGPT U/L -- -- -- -- -- 28 SGOT U/L -- -- -- -- -- 52* < > = values in this interval not displayed. Lab Results Component Value Date BLDCULT No Growth in 4 Days 01/03/2022 BLDCULT No Growth in 4 Days 01/03/2022 GS No White Blood Cells seen 01/03/2022 GS No organisms seen 01/03/2022 Lab Results Component Value Date GLUCPOCT 204 (H) 01/08/2022 GLUCPOCT 190 (H) 01/08/2022 GLUCPOCT 220 (H) 01/07/2022 GLUCPOCT 190 (H) 01/07/2022 RADIOLOGY: I have personally reviewed today's imaging XR KUB TO CHECK FEEDING TUBE Final Result IMPRESSION: 1. The radiopaque tip of the feeding tube overlies the fundus of the stomach. 2. Cholelithiasis. CHEST 1 VIEW - PA OR AP Final Result IMPRESSION: 1. No evidence of acute cardiopulmonary disease. 2. Endotracheal tube terminates 3.3 cm from the angella. RETROPERITONEAL Final Result IMPRESSION: 1. Diffusely increased renal parenchymal echogenicity, compatible with medical renal disease. 2. No hydronephrosis. No results found. TIME: Time spent on evaluating patient, reviewing chart and coordinating care: >30 mins Clarice Merino DO 1:28 PM 01/08/2022 Blaze De La Torre RN - 01/07/2022 12:17 PM PDT Pt A/O 3, forgetful, Skin checked by two nursing staff. Pt got transferred to [place] [id number], hemodynamically stable, elevated BP( Md got notified) . Denies any pain. Pt got oriented to the room, table and call light within reach. His mom by the bed side. Andrews Choe DO - 01/07/2022 10:30 AM PDT Images from the original note were not included. [facility] PROGRESS NOTE Patient Name: Mauri Levine : 1985 Admit Date: 01/03/2022 Attending Physician: Zachary Roe MD, PhD PCP: Flo Peña MD Date of Service: 01/07/2022 Hospital Day: 5 HOSPITAL COURSE 36-year-old gentleman who presented from outside facility with nausea vomiting altered mental status, was found in DKA, previous history of severe gastroparesis, admitted to the hospital with acute kidney injury, lumbar puncture indeterminate findings for meningitis, transferred to the medical floor on January 07 for further work-up and evaluation management ASSESSMENT / PLAN ASSESSMENT/PLAN: Acute hypoxic respiratory failure on ventilator likely as a consequence of DKA, self extubated and doing well, on room air Acute kidney injury, improving, renal was following but signed off, recommends adding ABBE inhibitor once creatinine down to 1.7 Diabetes with gastroparesis, gastric stimulator placed as outpatient, needs ongoing work for glycemic control Altered mental status with concern for meningitis encephalitis, continues on empiric ceftriaxone Flagyl, vancomycin Acyclovir discontinued Full CODE STATUS SUBJECTIVE CHIEF COMPLAINT: weak OVERNIGHT EVENTS: Resting comfortably in 1 N. bed, he says that he still feels slightly foggy but his mental status ismuch cleared since yesterday ROS: 10 point ROS otherwise negative unless documented above OBJECTIVE PHYSICAL EXAM: General: Resting in bed supine, no distress follows commands well, appears as stated age HEENT: Pupils equally round. Oropharynx moist. Neck Supple Respiratory: clear to auscultation bilaterally, has port placed Cardiovascular: Regular rate, regular rhythm. Normal S1 and S2. GI: Soft, nontender, nondistended. Bowel sounds present. : no mcknight present Extremities: Pulses 2+, no edema, no clubbing, no cyanosis. Neuro: No gross focal deficits. Psych: Normal affect. Skin: without rash BP 106/69 | Pulse 58 | Temp (Src) 98.3 (Temporal) | Resp 19 | Ht 5' 9" (1.753 m) | Wt 150 lb 2.1 oz (68.1 kg) | SaO2 100% SCHEDULED Meds: I have personally reviewed the current medication list. dexamethasone PF (pres-free), 5 mg, q6s insulin glargine, 10 Units, bedtime insulin lispro, 0-5 Units, ac hs carvedilol, 3.125 mg, bid cc ceftriaxone (ROCEPHIN) IV, 2 g, q12s metroNIDAZOLE, 500 mg, q8h chlorhexidine, 15 mL, bid famotidine, 20 mg, daily heparin, 5,000 Units, q8h IVF/IV Meds: PRN Meds: hydrALAZINE, 10 mg, q6h PRN acetaminophen, 1,000 mg, tid PRN dextrose, 25 mL, PRN LABS: Labs in the last 24 hours POC Glucose Collection Time: 01/06/22 11:33 AM Result Value Ref Range Glucose (POC) 126 (H) 65 - 99 mg/dL POC Glucose Collection Time: 01/06/22 5:02 PM Result Value Ref Range Glucose (POC) 134 (H) 65 - 99 mg/dL POC Glucose Collection Time: 01/06/22 8:30 PM Result Value Ref Range Glucose (POC) 138 (H) 65 - 99 mg/dL POC Glucose Collection Time: 01/06/22 11:48 PM Result Value Ref Range Glucose (POC) 99 65 - 99 mg/dL Renal Profile Collection Time: 01/07/22 3:20 AM Result Value Ref Range Sodium 142 136 - 145 mmol/L Potassium 4.0 3.5 - 5.0 mmol/L Chloride 106 99 - 109 mmol/L CO2 25 23 - 33 mmol/L Anion Gap 11 5 - 16 ratio Creatinine 1.92 (H) 0.50 - 1.30 mg/dL BUN 42 (H) 8 - 25 mg/dL Glucose 63 (L) 65 - 99 mg/dL Calcium 8.5 8.5 - 10.2 mg/dL Phosphorus 3.8 2.3 - 4.8 mg/dL Albumin 2.9 (L) 3.5 - 5.0 g/dL Estimated Glomerular Filtration Rate (eGFR) 46 (L) >=60 mL/min/1.73 m2 Magnesium Collection Time: 01/07/22 3:20 AM Result Value Ref Range Magnesium 2.4 1.7 - 2.4 mg/dL CBC w/Auto Differential Collection Time: 01/07/22 3:20 AM Result Value Ref Range WBC 10.28 4.00 - 11.00 x10E3/uL RBC 4.22 (L) 4.30 - 5.70 x10E6/uL Hemoglobin 11.7 (L) 13.7 - 16.7 g/dL Hematocrit 36.0 (L) 40.0 - 50.0 % MCV 85.3 80.0 - 100.0 fL MCH 27.7 27.0 - 34.0 pg MCHC 32.5 31.5 - 35.7 g/dL RDW 13.2 11.0 - 15.0 % Platelet Count 184 150 - 400 x10E3/uL MPV 12.7 (H) 9.4 - 12.4 fL Neutrophils %, Automated 86.5 (H) 40.0 - 80.0 % Immature Granulocytes %, Automated 0.7 0.0 - 1.0 % Lymphocytes %, Automated 6.4 (L) 15.0 - 45.0 % Monocytes %, Automated 6.3 0.0 - 12.0 % Eosinophils %, Automated 0.0 0.0 - 7.0 % Basophils %, Automated 0.1 0.0 - 2.0 % Neutrophils Abs, Automated 8.89 (H) 2.00 - 7.30 x10E3/uL Immature Granulocyte Abs, Automated 0.07 (H) 0.00 - 0.05 x10E3/uL Lymphocytes Abs, Automated 0.66 (L) 1.00 - 3.40 x10E3/uL Monocytes Abs, Automated 0.65 0.00 - 0.80 x10E3/uL Eosinophils Abs, Automated <0.03 0.00 - 0.50 x10E3/uL Basophils Abs, Automated <0.03 0.00 - 0.10 x10E3/uL nRBC %, Automated 0.0 0.0 - 1.0 /100 WBC nRBC Abs, Automated 0.00 0.00 - 0.01 x10E3/uL Manual differential Collection Time: 01/07/22 3:20 AM Result Value Ref Range Platelet Estimate Confirm Automated Count RBC Morphology Confirm Red Cell Indicies POC Glucose Collection Time: 01/07/22 6:37 AM Result Value Ref Range Glucose (POC) 47 (L) 65 - 99 mg/dL POC Glucose Collection Time: 01/07/22 6:56 AM Result Value Ref Range Glucose (POC) 106 (H) 65 - 99 mg/dL POC Glucose Collection Time: 01/07/22 8:26 AM Result Value Ref Range Glucose (POC) 80 65 - 99 mg/dL RADIOLOGY: I have personally reviewed today's imaging XR KUB TO CHECK FEEDING TUBE Final Result IMPRESSION: 1. The radiopaque tip of the feeding tube overlies the fundus of the stomach. 2. Cholelithiasis. CHEST 1 VIEW - PA OR AP Final Result IMPRESSION: 1. No evidence of acute cardiopulmonary disease. 2. Endotracheal tube terminates 3.3 cm from the angella. RETROPERITONEAL Final Result IMPRESSION: 1. Diffusely increased renal parenchymal echogenicity, compatible with medical renal disease. 2. No hydronephrosis. Additional Diagnostic Studies: Recent Results (from the past 168 hour(s)) EKG - STAT Collection Time: 01/03/22 1:45 PM Result Value Ref Range HEART RATE 70 bpm RR Interval 857 ms Atrial Rate 70 ms P-R Interval 128 ms P Duration 96 ms P Horizontal Deerfield -3 deg P Front [place] 77 deg Q Onset 499 ms QRSD Interval 166 ms QT Interval 620 ms QTcB 670 ms QTcF 653 ms QRS Horizontal [place] -26 deg QRS [place] 91 deg I-40 Horizontal [place] 48 deg I-40 Front [place]erfield -54 deg T-40 Horizontal [place]er[place] -32 deg T-40 Front [place] 92 deg T Horizontal [place] 167 deg T Wave [place] 183 deg S-T Horizontal [place] 74 deg S-T Front [place] 114 deg Narrative - ABNORMAL ECG - Sinus rhythm Probable LVH with secondary repol abnrm Abnormal T, probable ischemia, lateral leads Prolonged QT interval No previous ECG available for comparison Andrews Choe DO 10:30 AM 01/07/2022 Zachary Roe MD, PhD - 01/07/2022 8:53 AM PDT Images from the original note were not included. CRITICAL CARE PROGRESS NOTE Patient Name: Mauri Levine : 1985 Admit Date: 01/03/2022 Admitting Physician: Dimas Townsend MD PCP: Flo Peña MD Date of Service: 01/07/2022 Hospital Day: 5 Reason for CCU admission: Metabolic alkalosis, acute on chronic kidney failure CCU SUMMARY 36-year-old gentleman who presented to an outside facility with worsening nausea, vomiting and altered mentation. Notably he has a history of poorly controlled type 1 diabetes, severe gastroparesis andhas had prior admissions for severe electrolyte derangements. Seems the patient was initially admitted to their hospital with concern for an acute kidney injury and significant metabolic alkalosis. Within the first 24 hours of his stay he became further altered such that he was intubated, possibly following a suspected aspiration event while vomiting. Due to his escalating level of care and possible need for emergent dialysis he was transferred to [facility] on 01/03 for further management. His mother reports that he lives in a camper in [facility] [place] their house, not allowing them much insight into his medical conditions but they know that he has very poorly controlled diabetes and refractory gastroparesis that has led to him having very poor p.o. intake, poor diet and commonly bedbound, vomiting 5 out of 7 days most weeks. She is unaware of any preceding concerns of fevers, chills or otherwise feeling ill. She notes however at the hospital he was febrile for the entirety of his time there. She also estimates that the subcutaneous port he has had has been in place for maybe 4 years. He also has a gastric stimulator to try to help his gastroparesis but does not think this is been particular helpful 24 Events Doing well this am Pil[place] some PO On RA Hypoglyemia overnight Cr improving ASSESSMENT / PLAN Active Hospital Problems Diagnosis Acute renal failure (ARF) (CMS/[facility]) [N17.9] Respiratory failure (CMS/[facility]) [J96.90] Hyperosmolar hyperglycemic state (HHS) (CMS/[facility]) [E11.00, E11.65] *Metabolic alkalosis [E87.3] Stage 3a chronic kidney disease (CMS/[facility]) [N18.31] Anemia [D64.9] Prolonged Q-T interval on ECG [R94.31] Non compliance w medication regimen [Z91.14] PLAN: Pulm: Acute respiratory failure -self extuabted 01/06 - on RA Cardiovascular: -Goal MAP greater than 65 ID: Meningitis/encephalitis -Continue empiric ceftriaxone/Flagyl x 7 days. Suspect bacterial meningitis but no confirmation withlabs. Elavated WBC, neutrophil predmoinance in CSF. -Cultures remain negative Neuro: Encephalopathy -Slow improvement Renal: ROSALIO, CKD, hyperosmolar -Nephrology signed off. Improving. -Mcknight, strict I's and O's -Renal panel in the morning GI: Severe gastroparesis -PO diet Endo: Hyperglycemia - lantus + SSI, decrease lantus 10 -Continue fluid resuscitation Heme: Anemia -Transfuse hemoglobin less than 7 or active bleeding -No indication transfuse currently Nutrition: PO VTE Prophylaxis:chemical prophylaxis with Heparin subcu Multidiscplinary rounds performed: Yes Family: Mother at bedside Code Status: Full Code CCU DISPOSITION-: Transfer to floor OBJECTIVE PHYSICAL EXAM: Physical Exam Vitals and nursing note reviewed. [...] General: Skin is warm and dry. Neurological: General: No focal deficit present. Mental Status: He is alert. He is disoriented. BP 178/95 | Pulse 68 | Temp (Src) 98.2 (Temporal) | Resp 17 | Ht 5' 9" (1.753 m) | Wt 150 lb 2.1 oz (68.1 kg) | SaO2 100% Intake/Output Summary (Last 24 hours) at 01/07/2022 0853 Last data filed at 01/07/2022 0501 Gross per 24 hour Intake 550 ml Output 2235 ml Net -1685 ml MEDS: I have personally reviewed the current medication list. Yes IVF/IV Meds: LABS: I have personally reviewed the available labs. Yes Comments: Labs in the last 24 hours POC Glucose Collection Time: 01/06/22 5:02 PM Result Value Ref Range Glucose (POC) 134 (H) 65 - 99 mg/dL POC Glucose Collection Time: 01/06/22 8:30 PM Result Value Ref Range Glucose (POC) 138 (H) 65 - 99 mg/dL POC Glucose Collection Time: 01/06/22 11:48 PM Result Value Ref Range Glucose (POC) 99 65 - 99 mg/dL Renal Profile Collection Time: 01/07/22 3:20 AM Result Value Ref Range Sodium 142 136 - 145 mmol/L Potassium 4.0 3.5 - 5.0 mmol/L Chloride 106 99 - 109 mmol/L CO2 25 23 - 33 mmol/L Anion Gap 11 5 - 16 ratio Creatinine 1.92 (H) 0.50 - 1.30 mg/dL BUN 42 (H) 8 - 25 mg/dL Glucose 63 (L) 65 - 99 mg/dL Calcium 8.5 8.5 - 10.2 mg/dL Phosphorus 3.8 2.3 - 4.8 mg/dL Albumin 2.9 (L) 3.5 - 5.0 g/dL Estimated Glomerular Filtration Rate (eGFR) 46 (L) >=60 mL/min/1.73 m2 Magnesium Collection Time: 01/07/22 3:20 AM Result Value Ref Range Magnesium 2.4 1.7 - 2.4 mg/dL CBC w/Auto Differential Collection Time: 01/07/22 3:20 AM Result Value Ref Range WBC 10.28 4.00 - 11.00 x10E3/uL RBC 4.22 (L) 4.30 - 5.70 x10E6/uL Hemoglobin 11.7 (L) 13.7 - 16.7 g/dL Hematocrit 36.0 (L) 40.0 - 50.0 % MCV 85.3 80.0 - 100.0 fL MCH 27.7 27.0 - 34.0 pg MCHC 32.5 31.5 - 35.7 g/dL RDW 13.2 11.0 - 15.0 % Platelet Count 184 150 - 400 x10E3/uL MPV 12.7 (H) 9.4 - 12.4 fL Neutrophils %, Automated 86.5 (H) 40.0 - 80.0 % Immature Granulocytes %, Automated 0.7 0.0 - 1.0 % Lymphocytes %, Automated 6.4 (L) 15.0 - 45.0 % Monocytes %, Automated 6.3 0.0 - 12.0 % Eosinophils %, Automated 0.0 0.0 - 7.0 % Basophils %, Automated 0.1 0.0 - 2.0 % Neutrophils Abs, Automated 8.89 (H) 2.00 - 7.30 x10E3/uL Immature Granulocyte Abs, Automated 0.07 (H) 0.00 - 0.05 x10E3/uL Lymphocytes Abs, Automated 0.66 (L) 1.00 - 3.40 x10E3/uL Monocytes Abs, Automated 0.65 0.00 - 0.80 x10E3/uL Eosinophils Abs, Automated <0.03 0.00 - 0.50 x10E3/uL Basophils Abs, Automated <0.03 0.00 - 0.10 x10E3/uL nRBC %, Automated 0.0 0.0 - 1.0 /100 WBC nRBC Abs, Automated 0.00 0.00 - 0.01 x10E3/uL Manual differential Collection Time: 01/07/22 3:20 AM Result Value Ref Range Platelet Estimate Confirm Automated Count RBC Morphology Confirm Red Cell Indicies POC Glucose Collection Time: 01/07/22 6:37 AM Result Value Ref Range Glucose (POC) 47 (L) 65 - 99 mg/dL POC Glucose Collection Time: 01/07/22 6:56 AM Result Value Ref Range Glucose (POC) 106 (H) 65 - 99 mg/dL POC Glucose Collection Time: 01/07/22 8:26 AM Result Value Ref Range Glucose (POC) 80 65 - 99 mg/dL POC Glucose Collection Time: 01/07/22 11:35 AM Result Value Ref Range Glucose (POC) 114 (H) 65 - 99 mg/dL RADIOLOGY: I have personally reviewed today's imaging. Yes Interpretations: Chest x-ray 01/03/2022: Images reviewed. No definitive infiltrates. Additional Diagnostic Studies: Zachary Roe MD, PhD [facility] 8:53 AM 01/07/2022 Mustapha Leonard DO - 01/06/2022 8:00 AM PDT NEPHROLOGY PROGRESS NOTE ASSESSMENT AND PLAN: 36-year-old male with diabetes mellitus type 1 presents the hospital with intractable nausea vomiting presumably secondary to diabetic gastroparesis.Hyperosmolar state, hypovolemia, volume contraction metabolic alkalosis,hypokalemia,acute kidney injury on chronic kidney disease. Concern for aseptic meningitis/encephalitis. 1) ROSALIO Prerenal hypovolemia, improving Creatinine declined to 2.1 Discontinue maintenance IV fluids, advance PO as tolerated Repeat kidney function panel in a.m. Would renal dose medications for GFR between 15 and 30 mL/min 2) Chronic kidney disease, stage III-4 Normal kidney sizes with increased renal echogenicity on ultrasound Baseline serum creatinine around 1.7-2.0 Baseline macro albuminuria,suggestsglomerulopathy, diabetic nephropathy suspected Follows with in [facility] will sign off, call if status changes CC:I saw the patient on the frye today for follow-up of acute on chronic kidney injury, multiple electrolyte abnormalities. Extubated overnight. Appears comfortable today. Responding to some conversation but sleepy and otherquestions falls back asleep. Is following commands. Reports some hunger and thirst. No shortness of breath. No dizziness or lightheadedness. No abdominal pain or nausea. Discussed with him what has been going on with the kidney function and plan for monitoring of kidney function. Unable to perform review of systems due to patient medical condition. Physical Exam General: No acute distress, appears comfortable Eyes: Anicteric sclerae, conjunctiva pink HENT: Mucous membranes moist Lungs: Coarse soundsbilaterally, normal respiratory effort CV: Regular rate and rhythm no murmurs clicks or rubs, no jugular venous distention Abdomen: Soft, non-tender; nondistended, bowel sounds present Extremities:Tracelower extremity pedaledema, no cyanosis Skin: Normal temperature, no rash noted on face or hands Vitals: 01/06/22 0505 01/06/22 0516 01/06/22 0525 01/06/22 0700 BP: (!) 182/91 Pulse: 71 71 81 Resp: 18 20 22 Temp: 96.44 F (35.8 C) TempSrc: SpO2: 100% 100% 100% Weight: 155 lb 13.8 oz (70.7 kg) Height: Patient Active Problem List Diagnosis Acute renal failure (ARF) (CMS/HCC) Respiratory failure (CMS/HCC) Metabolic alkalosis Stage 3a chronic kidney disease (CMS/HCC) Hyperosmolar hyperglycemic state (HHS) (CMS/HCC) Mitral valve prolapse Nonrheumatic aortic valve insufficiency Anemia Prolonged Q-T interval on ECG Non compliance w medication regimen Current Facility-Administered Medications Medication Dose Route Frequency Provider Last Rate Last Admin carvedilol (Coreg) tablet 3.125 mg 3.125 mg Oral bid cc KEVIN Narvaez 3.125 mg at 01/06/22 0742 dexmedetomidine (PRECEDEX) 400 mcg in 0.9 % NaCl (NS) 100 mL IV infusion 0.1-1.5 mcg/kg/hr Intravenous titrate KEVIN Narvaez Stopped at 01/06/22 0525 cefTRIAXone (ROCEPHIN) 2 g in 0.9 % NaCl (NS) 100 mL IV piggyback 2 g Intravenous q12s David Mariscal, DO 200 mL/hr at 01/06/22 0741 2 g at 01/06/22 0741 hydrALAZINE (APRESOLINE) 20 mg/mL inj 10 mg 10 mg Intravenous q6h PRN Dimas Townsend MD 10mg at 01/06/22 0524 lactated ringers (LR) infusion soln Intravenous continuous Mustapha Martinez Leonard, DO 100 mL/hr at 01/05/22 2135 New Bag at 01/05/22 213 metronidazole (FLAGYL) 500 mg IV piggyback 500 mg Intravenous q8h David Mariscal, DO 500 mg at 01/06/22 0524 acetaminophen (TYLENOL 32 mg/mL) oral liquid 1,000 mg 1,000 mg Oral tid PRN Dimas Townsend MD 1,000 mg at 01/03/22 1942 acyclovir (ZOVIRAX) 685 mg in 0.9 % NaCl (NS) 150 mL IV piggyback 10 mg/kg/DOSE Intravenous [id number] Townsend MD 150 mL/hr at 01/05/22 2247 685 mg at 01/05/22 2247 chlorhexidine (PERIDEX) 0.12 % oral soln 15 mL 15 mL Mouth/Throat bid Dimas Townsend MD 15mL at 01/06/22 0524 dexamethasone PF (pres-free) (DECADRON) 10 MG/ML inj 10 mg 10 mg Intravenous q6s Dimas Townsend MD 10 mg at 01/06/22 0445 dextrose 5 % and lactated ringers (D5 LR) IV solution Intravenous titrate Dimas Townsend MD End of Infusion at 01/04/22 0549 dextrose 50 % IV solution 25 mL 25 mL Intravenous PRN Dimas Townsend MD Famotidine (PF) (PEPCID) 10 mg/mL inj 20 mg 20 mg Intravenous daily Dimas Townsend MD 20 mg at 01/06/22 0524 fentanyl (SUBLIMAZE) 50 mcg/mL (2 mL) inj 50-100 mcg 50-100 mcg Intravenous PRN Nurys Nichols PA-C 100 mcg at 01/05/22 0906 fentaNYL citrate (SUBLIMAZE) 2500 MCG/50ML IV infusion 1-400 mcg/hr Intravenous titrate Dimas Townsend MD End of Infusion at 01/05/22 1330 heparin 5000 units/mL inj 5,000 Units 5,000 Units Subcutaneous q8h Dimas Townsend MD 5,000Units at 01/06/22 0524 insulin regular (human) 100 units in NS 100 mL IV infusion 0.1 Units/kg/hr Intravenous titrate Dimas Townsend MD 1.5 mL/hr at 01/06/22 0730 1.5 Units/hr at 01/06/22 0730 propofol 10 mg/mL inj 25-300 mcg/kg/min Intravenous continuous Dimas Townsend MD End of Infusion at 01/05/22 0655 Laboratory and Diagnostic Data Labs in the last 24 hours POC Glucose Collection Time: 01/05/22 8:24 AM Result Value Ref Range Glucose (POC) 121 (H) 65 - 99 mg/dL Potassium Collection Time: 01/05/22 9:06 AM Result Value Ref Range Potassium 5.4 (H) 3.5 - 5.0 mmol/L POC Glucose Collection Time: 01/05/22 9:28 AM Result Value Ref Range Glucose (POC) 151 (H) 65 - 99 mg/dL POC Glucose Collection Time: 01/05/22 10:35 AM Result Value Ref Range Glucose (POC) 132 (H) 65 - 99 mg/dL POC Glucose Collection Time: 01/05/22 11:35 AM Result Value Ref Range Glucose (POC) 114 (H) 65 - 99 mg/dL POC Glucose Collection Time: 01/05/22 12:37 PM Result Value Ref Range Glucose (POC) 107 (H) 65 - 99 mg/dL POC Glucose Collection Time: 01/05/22 1:31 PM Result Value Ref Range Glucose (POC) 133 (H) 65 - 99 mg/dL POC Glucose Collection Time: 01/05/22 2:27 PM Result Value Ref Range Glucose (POC) 131 (H) 65 - 99 mg/dL POC Glucose Collection Time: 01/05/22 3:23 PM Result Value Ref Range Glucose (POC) 126 (H) 65 - 99 mg/dL POC Glucose Collection Time: 01/05/22 5:28 PM Result Value Ref Range Glucose (POC) 119 (H) 65 - 99 mg/dL POC Glucose Collection Time: 01/05/22 7:32 PM Result Value Ref Range Glucose (POC) 125 (H) 65 - 99 mg/dL POC Glucose Collection Time: 01/05/22 9:32 PM Result Value Ref Range Glucose (POC) 123 (H) 65 - 99 mg/dL POC Glucose Collection Time: 01/05/22 11:36 PM Result Value Ref Range Glucose (POC) 130 (H) 65 - 99 mg/dL POC Glucose Collection Time: 01/06/22 1:36 AM Result Value Ref Range Glucose (POC) 137 (H) 65 - 99 mg/dL POC Glucose Collection Time: 01/06/22 3:32 AM Result Value Ref Range Glucose (POC) 110 (H) 65 - 99 mg/dL POC Glucose Collection Time: 01/06/22 5:38 AM Result Value Ref Range Glucose (POC) 127 (H) 65 - 99 mg/dL Renal Profile Collection Time: 01/06/22 6:00 AM Result Value Ref Range Sodium 139 136 - 145 mmol/L Potassium Chloride 105 99 - 109 mmol/L CO2 22 (L) 23 - 33 mmol/L Anion Gap 12 5 - 16 ratio Creatinine 2.15 (H) 0.50 - 1.30 mg/dL BUN 42 (H) 8 - 25 mg/dL Glucose 136 (H) 65 - 99 mg/dL Calcium 8.5 8.5 - 10.2 mg/dL Phosphorus 3.8 2.3 - 4.8 mg/dL Albumin 3.0 (L) 3.5 - 5.0 g/dL Estimated Glomerular Filtration Rate (eGFR) 40 (L) >=60 mL/min/1.73 m2 Magnesium Collection Time: 01/06/22 6:00 AM Result Value Ref Range Magnesium 2.4 1.7 - 2.4 mg/dL CBC w/Auto Differential Collection Time: 01/06/22 6:00 AM Result Value Ref Range WBC 12.90 (H) 4.00 - 11.00 x10E3/uL RBC 4.03 (L) 4.30 - 5.70 x10E6/uL Hemoglobin 11.3 (L) 13.7 - 16.7 g/dL Hematocrit 35.6 (L) 40.0 - 50.0 % MCV 88.3 80.0 - 100.0 fL MCH 28.0 27.0 - 34.0 pg MCHC 31.7 31.5 - 35.7 g/dL RDW 13.5 11.0 - 15.0 % Platelet Count 108 (L) 150 - 400 x10E3/uL MPV 13.6 (H) 9.4 - 12.4 fL Neutrophils %, Automated 89.6 (H) 40.0 - 80.0 % Immature Granulocytes %, Automated 0.7 0.0 - 1.0 % Lymphocytes %, Automated 4.3 (L) 15.0 - 45.0 % Monocytes %, Automated 5.3 0.0 - 12.0 % Eosinophils %, Automated 0.0 0.0 - 7.0 % Basophils %, Automated 0.1 0.0 - 2.0 % Neutrophils Abs, Automated 11.56 (H) 2.00 - 7.30 x10E3/uL Immature Granulocyte Abs, Automated 0.09 (H) 0.00 - 0.05 x10E3/uL Lymphocytes Abs, Automated 0.56 (L) 1.00 - 3.40 x10E3/uL Monocytes Abs, Automated 0.68 0.00 - 0.80 x10E3/uL Eosinophils Abs, Automated <0.03 0.00 - 0.50 x10E3/uL Basophils Abs, Automated <0.03 0.00 - 0.10 x10E3/uL nRBC %, Automated 0.2 0.0 - 1.0 /100 WBC nRBC Abs, Automated 0.02 (H) 0.00 - 0.01 x10E3/uL Potassium Collection Time: 01/06/22 6:54 AM Result Value Ref Range Potassium 4.1 3.5 - 5.0 mmol/L POC Glucose Collection Time: 01/06/22 7:36 AM Result Value Ref Range Glucose (POC) 139 (H) 65 - 99 mg/dL Available imaging results reviewed. Zachary Roe MD, PhD - 01/06/2022 7:00 AM PDT Images from the original note were not included. CRITICAL CARE PROGRESS NOTE Patient Name: Mauri Levine : 1985 Admit Date: 01/03/2022 Admitting Physician: Dimas Townsend MD PCP: Flo Peña MD Date of Service: 01/06/2022 Hospital Day: 4 Reason for CCU admission: Metabolic alkalosis, acute on chronic kidney failure CCU SUMMARY 36-year-old gentleman who presented to an outside facility with worsening nausea, vomiting and altered mentation. Notably he has a history of poorly controlled type 1 diabetes, severe gastroparesis andhas had prior admissions for severe electrolyte derangements. Seems the patient was initially admitted to their hospital with concern for an acute kidney injury and significant metabolic alkalosis. Within the first 24 hours of his stay he became further altered such that he was intubated, possibly following a suspected aspiration event while vomiting. Due to his escalating level of care and possible need for emergent dialysis he was transferred to [facility] on 01/03 for further management. His mother reports that he lives in a camper in [facility] [place] their house, not allowing them much insight into his medical conditions but they know that he has very poorly controlled diabetes and refractory gastroparesis that has led to him having very poor p.o. intake, poor diet and commonly bedbound, vomiting 5 out of 7 days most weeks. She is unaware of any preceding concerns of fevers, chills or otherwise feeling ill. She notes however at the hospital he was febrile for the entirety of his time there. She also estimates that the subcutaneous port he has had has been in place for maybe 4 years. He also has a gastric stimulator to try to help his gastroparesis but does not think this is been particular helpful 24 Events Self extubated this am Remains imprulsive Hypertensive Answers some questions Remains on insulin gtt, well controlled No fever ASSESSMENT / PLAN Active Hospital Problems Diagnosis Acute renal failure (ARF) (CMS/[facility]) [N17.9] Respiratory failure ([facility]) [J96.90] Hyperosmolar hyperglycemic state (HHS) ([facility]) [E11.00, E11.65] *Metabolic alkalosis [E87.3] Stage 3a chronic kidney disease ([facility]) [N18.31] Anemia [D64.9] Prolonged Q-T interval on ECG [R94.31] Non compliance w medication regimen [Z91.14] PLAN: Pulm: Acute respiratory failure -self extuabte - Titrate O2 Cardiovascular: -Very well controlled now -Goal MAP greater than 65 ID: Meningitis/encephalitis -Continue empiric ceftriaxone/Flagyl, vancomycin, acyclovir -Cultures remain negative Neuro: Encephalopathy -Slow improvement Renal: ROSALIO, CKD, hyperosmolar -Nephrology following. Responding to fluids. Cr improving -Mcknight, strict I's and O's -Renal panel in the morning GI: Severe gastroparesis -Swallow study - Start po if able Endo: Hyperglycemia -Transition to lantus + SSI -Continue fluid resuscitation Heme: Anemia -Transfuse hemoglobin less than 7 or active bleeding -No indication transfuse currently Nutrition: NPO VTE Prophylaxis:chemical prophylaxis with Heparin subcu Multidiscplinary rounds performed: Yes Family: Mother at bedside Code Status: Full Code CCU DISPOSITION-: CCU OBJECTIVE PHYSICAL EXAM: Physical Exam Vitals and nursing note reviewed. [...] General: Skin is warm and dry. Neurological: General: No focal deficit present. Mental Status: He is alert. He is disoriented. BP 172/86 | Pulse 71 | Temp (Src) 96.6 (Bladder) | Resp 20 | Ht 5' 9" (1.753 m) | Wt 155 lb 13.8 oz (70.7 kg) | SaO2 100% Intake/Output Summary (Last 24 hours) at 01/06/2022 0700 Last data filed at 01/06/2022 0600 Gross per 24 hour Intake 1197.74 ml Output 2450 ml Net -1252.26 ml MEDS: I have personally reviewed the current medication list. Yes IVF/IV Meds: dexmedetomidine (PRECEDEX) IV continuous infusion, Last Rate: Stopped (01/06/22 0525) lactated ringers, Last Rate: 100 mL/hr at 01/05/22 2135 dextrose 5 % and lactated ringers, Last Rate: Stopped (01/04/22 0549) fentanyl IV continuous infusion, Last Rate: Stopped (01/05/22 1330) insulin regular (human) IV continuous infusion, Last Rate: 1 Units/hr (01/06/22 0530) propofol (DIPRIVAN) IV infusion, Last Rate: Stopped (01/05/22 0655) LABS: I have personally reviewed the available labs. Yes Comments: WBC 12.9, Hgb 11.3, HCT 35.6, PLT 108 NA 139, CL 105, CO2 22, BUN 42, CR 2.15, GLU 136 RADIOLOGY: I have personally reviewed today's imaging. Yes Interpretations: Chest x-ray 01/03/2022: Images reviewed. No definitive infiltrates. Additional Diagnostic Studies: The condition of the patient indicated a high probability of deterioration and required critical care services. My time excluded minutes spent performing separately billable procedures and time spent treating other patients simultaneously. Critical Care Management included: Chart review, discussing with participating medical team, review of vital statistics, laboratories, radiographic studies,and prior records, current and previous medications, and current and previous treatment plans/orders. Critical Care Time: 45 Minutes Zachary Roe MD, PhD [facility] 7:00 AM 01/06/2022 Mustapha Leonard, - 01/05/2022 9:04 AM PDT NEPHROLOGY PROGRESS NOTE ASSESSMENT AND PLAN: 36-year-old male with diabetes mellitus type 1 presents the hospital with intractable nausea vomiting presumably secondary to diabetic gastroparesis.Hyperosmolar state, hypovolemia, volume contraction metabolic alkalosis,hypokalemia,acute kidney injury on chronic kidney disease. 1) ROSALIO Prerenal hypovolemia, improving with IVF, management of hyperglycemia Creatinine declined to 2.5 ContinueLR at 100 ml/hr, can titrate down when feeding / PO intake increased Repeat kidney function panel in a.m. Would renal dose medications for GFR between 15 and 30 mL/min 2) Chronic kidney disease, stage III-4 Normal kidney sizes with increased renal echogenicity on ultrasound Baseline serum creatinine around 1.7-2.0 Baseline macro albuminuria, suggests glomerulopathy, diabetic nephropathy suspected Follows with in [facility] CC: I saw the patient on the frye today for follow-up of acute on chronic kidney injury, multiple electrolyte abnormalities. About the same today as yesterday. Following limited commands but not for me on review today. Not able to open eyes, is restless and seems to be moving all of his extremities. Remains on the ventilator. Reviewed vitals flowsheets and laboratories in detail. Updated mother at bedside about kidney progress. She is quite overwhelmed with his care at home. Unable to perform review of systems due to patient medical condition. Physical Exam General: No acute distress,intubated, appears comfortable Eyes: Anicteric sclerae, conjunctiva pink HENT: Mucous membranes moist, ETT in place Lungs: Coarse ventilator soundsbilaterally, normal respiratory effort CV: Regular rate and rhythm no murmurs clicks or rubs, no jugular venous distention Abdomen: Soft, non-tender; nondistended, bowel sounds present Extremities:No lower extremity pedaledema, no cyanosis Skin: Normal temperature, no rash noted on face or hands Vitals: 01/05/22 0600 01/05/22 0700 01/05/22 0715 01/05/22 0800 BP: 136/70 (!) 140/63 (!) 150/68 Pulse: (!) 45 (!) 46 72 72 Resp: 18 18 18 19 Temp: 96.4 F (35.8 C) 96.44 F (35.8 C) 97.88 F (36.6 C) TempSrc: Bladder SpO2: 100% 100% 97% 91% Weight: Height: Patient Active Problem List Diagnosis Acute renal failure (ARF) (CMS/HCC) Respiratory failure (CMS/HCC) Metabolic alkalosis Stage 3a chronic kidney disease (CMS/HCC) Hyperosmolar hyperglycemic state (HHS) (CMS/HCC) Mitral valve prolapse Nonrheumatic aortic valve insufficiency Anemia Prolonged Q-T interval on ECG Non compliance w medication regimen Current Facility-Administered Medications Medication Dose Route Frequency Provider Last Rate Last Admin cefTRIAXone (ROCEPHIN) 2 g in 0.9 % NaCl (NS) 100 mL IV piggyback 2 g Intravenous q12s David Mariscal, DO 200 mL/hr at 01/05/22 0818 2 g at 01/05/22 0818 hydrALAZINE (APRESOLINE) 20 mg/mL inj 10 mg 10 mg Intravenous q6h PRN Dimas Townsend MD 10mg at 01/04/222125 lactated ringers (LR) infusion soln Intravenous continuous Mustapha Martinez Leonard, DO 100 mL/hr at 01/05/22 0800 Rate Verify at 01/05/22 0800 metronidazole (FLAGYL) 500 mg IV piggyback 500 mg Intravenous q8h David Linda Cook, DO 500 mg at 01/05/22 0507 acetaminophen (TYLENOL 32 mg/mL) oral liquid 1,000 mg 1,000 mg Oral tid PRN Dimas Townsend MD 1,000 mg at 01/03/22 194 acyclovir (ZOVIRAX) 685 mg in 0.9 % NaCl (NS) 150 mL IV piggyback 10 mg/kg/DOSE Intravenous [id number] Townsend MD 150 mL/hr at 01/04/22 2234 685 mg at 01/04/22 2234 chlorhexidine (PERIDEX) 0.12 % oral soln 15 mL 15 mL Mouth/Throat bid Dimas Townsend MD 15mL at 01/04/22 1728 dexamethasone PF (pres-free) (DECADRON) 10 MG/ML inj 10 mg 10 mg Intravenous q6s Dimas Townsend MD 10 mg at 01/05/22 0507 dextrose 5 % and lactated ringers (D5 LR) IV solution Intravenous titrate Dimas Townsend MD End of Infusion at 01/04/22 0549 dextrose 50 % IV solution 25 mL 25 mL Intravenous PRN Dimas Townsend MD Famotidine (PF) (PEPCID) 10 mg/mL inj 20 mg 20 mg Intravenous daily Dimas Townsend MD 20 mg at 01/05/22 0507 fentanyl (SUBLIMAZE) 50 mcg/mL (2 mL) inj 50-100 mcg 50-100 mcg Intravenous PRN Nurys Nichols PA-C 100 mcg at 01/04/22 0108 fentaNYL citrate (SUBLIMAZE) 2500 MCG/50ML IV infusion 1-400 mcg/hr Intravenous titrate Dimas Townsend MD End of Infusion at 01/04/22 0641 heparin 5000 units/mL inj 5,000 Units 5,000 Units Subcutaneous q8h Dimas Townsend MD 5,000Units at 01/05/22 0507 insulin regular (human) 100 units in NS 100 mL IV infusion 0.1 Units/kg/hr Intravenous titrate Dimas Townsend MD 1 mL/hr at 01/05/22 0830 1 Units/hr at 01/05/22 0830 propofol 10 mg/mL inj 25-300 mcg/kg/min Intravenous continuous Dimas Townsend MD End of Infusion at 01/05/22 0655 Laboratory and Diagnostic Data Labs in the last 24 hours POC Glucose Collection Time: 01/04/22 9:22 AM Result Value Ref Range Glucose (POC) 145 (H) 65 - 99 mg/dL POC Glucose Collection Time: 01/04/22 10:26 AM Result Value Ref Range Glucose (POC) 100 (H) 65 - 99 mg/dL POC Glucose Collection Time: 01/04/22 11:27 AM Result Value Ref Range Glucose (POC) 102 (H) 65 - 99 mg/dL POC Glucose Collection Time: 01/04/22 12:30 PM Result Value Ref Range Glucose (POC) 123 (H) 65 - 99 mg/dL POC Glucose Collection Time: 01/04/22 1:23 PM Result Value Ref Range Glucose (POC) 130 (H) 65 - 99 mg/dL POC Glucose Collection Time: 01/04/22 2:25 PM Result Value Ref Range Glucose (POC) 169 (H) 65 - 99 mg/dL POC Glucose Collection Time: 01/04/22 3:36 PM Result Value Ref Range Glucose (POC) 157 (H) 65 - 99 mg/dL POC Glucose Collection Time: 01/04/22 4:39 PM Result Value Ref Range Glucose (POC) 177 (H) 65 - 99 mg/dL POC Glucose Collection Time: 01/04/22 5:27 PM Result Value Ref Range Glucose (POC) 133 (H) 65 - 99 mg/dL POC Glucose Collection Time: 01/04/22 6:27 PM Result Value Ref Range Glucose (POC) 115 (H) 65 - 99 mg/dL POC Glucose Collection Time: 01/04/22 8:03 PM Result Value Ref Range Glucose (POC) 157 (H) 65 - 99 mg/dL POC Glucose Collection Time: 01/04/22 9:19 PM Result Value Ref Range Glucose (POC) 127 (H) 65 - 99 mg/dL POC Glucose Collection Time: 01/04/22 10:27 PM Result Value Ref Range Glucose (POC) 136 (H) 65 - 99 mg/dL POC Glucose Collection Time: 01/04/22 11:10 PM Result Value Ref Range Glucose (POC) 123 (H) 65 - 99 mg/dL POC Glucose Collection Time: 01/05/22 12:10 AM Result Value Ref Range Glucose (POC) 137 (H) 65 - 99 mg/dL POC Glucose Collection Time: 01/05/22 1:11 AM Result Value Ref Range Glucose (POC) 122 (H) 65 - 99 mg/dL POC Glucose Collection Time: 01/05/22 2:27 AM Result Value Ref Range Glucose (POC) 139 (H) 65 - 99 mg/dL POC Glucose Collection Time: 01/05/22 3:25 AM Result Value Ref Range Glucose (POC) 134 (H) 65 - 99 mg/dL POC Glucose Collection Time: 01/05/22 4:13 AM Result Value Ref Range Glucose (POC) 112 (H) 65 - 99 mg/dL Renal Profile Collection Time: 01/05/22 5:06 AM Result Value Ref Range Sodium 142 136 - 145 mmol/L Potassium 3.8 3.5 - 5.0 mmol/L Chloride 109 99 - 109 mmol/L CO2 22 (L) 23 - 33 mmol/L Anion Gap 11 5 - 16 ratio Creatinine 2.51 (H) 0.50 - 1.30 mg/dL BUN 43 (H) 8 - 25 mg/dL Glucose 124 (H) 65 - 99 mg/dL Calcium 7.4 (L) 8.5 - 10.2 mg/dL Phosphorus 2.7 2.3 - 4.8 mg/dL Albumin 2.5 (L) 3.5 - 5.0 g/dL Estimated Glomerular Filtration Rate (eGFR) 33 (L) >=60 mL/min/1.73 m2 Magnesium Collection Time: 01/05/22 5:06 AM Result Value Ref Range Magnesium 2.3 1.7 - 2.4 mg/dL CBC w/Auto Differential Collection Time: 01/05/22 5:06 AM Result Value Ref Range WBC 14.76 (H) 4.00 - 11.00 x10E3/uL RBC 3.28 (L) 4.30 - 5.70 x10E6/uL Hemoglobin 9.4 (L) 13.7 - 16.7 g/dL Hematocrit 29.3 (L) 40.0 - 50.0 % MCV 89.3 80.0 - 100.0 fL MCH 28.7 27.0 - 34.0 pg MCHC 32.1 31.5 - 35.7 g/dL RDW 13.6 11.0 - 15.0 % Platelet Count 121 (L) 150 - 400 x10E3/uL MPV 13.0 (H) 9.4 - 12.4 fL Neutrophils %, Automated 90.6 (H) 40.0 - 80.0 % Immature Granulocytes %, Automated 0.4 0.0 - 1.0 % Lymphocytes %, Automated 4.6 (L) 15.0 - 45.0 % Monocytes %, Automated 4.3 0.0 - 12.0 % Eosinophils %, Automated 0.0 0.0 - 7.0 % Basophils %, Automated 0.1 0.0 - 2.0 % Neutrophils Abs, Automated 13.36 (H) 2.00 - 7.30 x10E3/uL Immature Granulocyte Abs, Automated 0.06 (H) 0.00 - 0.05 x10E3/uL Lymphocytes Abs, Automated 0.68 (L) 1.00 - 3.40 x10E3/uL Monocytes Abs, Automated 0.64 0.00 - 0.80 x10E3/uL Eosinophils Abs, Automated <0.03 0.00 - 0.50 x10E3/uL Basophils Abs, Automated <0.03 0.00 - 0.10 x10E3/uL nRBC %, Automated 0.1 0.0 - 1.0 /100 WBC nRBC Abs, Automated 0.02 (H) 0.00 - 0.01 x10E3/uL POC Glucose Collection Time: 01/05/22 5:10 AM Result Value Ref Range Glucose (POC) 116 (H) 65 - 99 mg/dL POC Glucose Collection Time: 01/05/22 6:25 AM Result Value Ref Range Glucose (POC) 144 (H) 65 - 99 mg/dL POC Glucose Collection Time: 01/05/22 7:28 AM Result Value Ref Range Glucose (POC) 108 (H) 65 - 99 mg/dL POC Glucose Collection Time: 01/05/22 8:24 AM Result Value Ref Range Glucose (POC) 121 (H) 65 - 99 mg/dL Available imaging results reviewed. Zachary Roe MD, PhD - 01/05/2022 8:17 AM PDT Images from the original note were not included. CRITICAL CARE PROGRESS NOTE Patient Name: Mauri Levine : 1985 Admit Date: 01/03/2022 Admitting Physician: Dimas Townsend MD PCP: Flo Peña MD Date of Service: 01/05/2022 Hospital Day: 3 Reason for CCU admission: Metabolic alkalosis, acute on chronic kidney failure CCU SUMMARY 36-year-old gentleman who presented to an outside facility with worsening nausea, vomiting and altered mentation. Notably he has a history of poorly controlled type 1 diabetes, severe gastroparesis andhas had prior admissions for severe electrolyte derangements. Seems the patient was initially admitted to their hospital with concern for an acute kidney injury and significant metabolic alkalosis. Within the first 24 hours of his stay he became further altered such that he was intubated, possibly following a suspected aspiration event while vomiting. Due to his escalating level of care and possible need for emergent dialysis he was transferred to [facility] on 01/03 for further management. His mother reports that he lives in a camper in [facility] [place] their house, not allowing them much insight into his medical conditions but they know that he has very poorly controlled diabetes and refractory gastroparesis that has led to him having very poor p.o. intake, poor diet and commonly bedbound, vomiting 5 out of 7 days most weeks. She is unaware of any preceding concerns of fevers, chills or otherwise feeling ill. She notes however at the hospital he was febrile for the entirety of his time there. She also estimates that the subcutaneous port he has had has been in place for maybe 4 years. He also has a gastric stimulator to try to help his gastroparesis but does not think this is been particular helpful 24 Events On SAT/SBT this am More alert, follows some commands BP stable Remains on insulin gtt, well controlled No fever ASSESSMENT / PLAN Active Hospital Problems Diagnosis Acute renal failure (ARF) ([facility]) [N17.9] Respiratory failure ([facility]) [J96.90] Hyperosmolar hyperglycemic state (HHS) ([facility]) [E11.00, E11.65] *Metabolic alkalosis [E87.3] Stage 3a chronic kidney disease ([facility]) [N18.31] Anemia [D64.9] Prolonged Q-T interval on ECG [R94.31] Non compliance w medication regimen [Z91.14] PLAN: Pulm: Acute respiratory failure -SAT SBT today extubate if tolerates -Lung protective ventilation strategy -Titrate FiO2 and PEEP to keep O2 sats greater than 88% Cardiovascular: - Monitor QT closely -Very well controlled now -Goal MAP greater than 65 ID: Meningitis/encephalitis -Continue empiric ceftriaxone/Flagyl, vancomycin, acyclovir -Follow-up cultures Neuro: Encephalopathy -Possibly viral meningitis/encephalitis. Bacterial meningitis not ruled out yet. -SAT today Renal: ROSALIO, CKD, hyperosmolar -Nephrology following. Responding to fluids. Cr improving -Mcknight, strict I's and O's -Renal panel in the morning GI: Severe gastroparesis -Place NG tube for possible extubation -Start trophic tube feeds Endo: Hyperglycemia -Continue insulin drip and follow blood sugars closely -Continue fluid resuscitation Heme: Anemia -Transfuse hemoglobin less than 7 or active bleeding -No indication transfuse currently Nutrition: Tube Feeding VTE Prophylaxis:chemical prophylaxis with Heparin subcu Multidiscplinary rounds performed: Yes Family: Mother at bedside Code Status: Full Code CCU DISPOSITION-: CCU OBJECTIVE PHYSICAL EXAM: Physical Exam Vitals and nursing note reviewed. Constitutional: Appearance: He is well-developed. Interventions: He is sedated and intubated. HENT: Head: Normocephalic and atraumatic. Mouth/Throat: Mouth: Mucous membranes are moist. Pharynx: Oropharynx is clear. Eyes: Conjunctiva/sclera: Conjunctivae normal. Pupils: Pupils are equal, round, and reactive to light. Cardiovascular: Rate and Rhythm: Normal rate and regular rhythm. Heart sounds: Normal heart sounds. No murmur heard. Pulmonary: Effort: Pulmonary effort is normal. No respiratory distress. He is intubated. Breath sounds: Decreased air movement present. No wheezing, rhonchi or rales. Abdominal: General: Bowel sounds are decreased. Palpations: Abdomen is soft. Tenderness: There is no abdominal tenderness. There is no rebound. Musculoskeletal: Cervical back: Neck supple. Skin: General: Skin is warm and dry. Neurological: General: No focal deficit present. Mental Status: He is lethargic. BP 150/68 | Pulse 72 | Temp (Src) 97.88 (Bladder) | Resp 19 | Ht 5' 9" (1.753 m) | Wt 152 lb 12.5 oz(69.3 kg) | SaO2 91% Intake/Output Summary (Last 24 hours) at 01/05/2022 0817 Last data filed at 01/05/2022 0800 Gross per 24 hour Intake 2726 ml Output 3515 ml Net -789 ml MEDS: I have personally reviewed the current medication list. Yes IVF/IV Meds: lactated ringers, Last Rate: 100 mL/hr at 01/05/22 0800 dextrose 5 % and lactated ringers, Last Rate: Stopped (01/04/22 0549) fentanyl IV continuous infusion, Last Rate: Stopped (01/04/22 0641) insulin regular (human) IV continuous infusion, Last Rate: 0.5 Units/hr (01/05/22 0730) propofol (DIPRIVAN) IV infusion, Last Rate: Stopped (01/05/22 0655) LABS: I have personally reviewed the available labs. Yes Comments: NA 142, K3.8, CL 109, CO2 22, CR 2.5, BUN 43, GLU 124 WBC 14.7, Hgb 9.4, HCT 29.3, PLT 121 RADIOLOGY: I have personally reviewed today's imaging. Yes Interpretations: Chest x-ray 01/03/2022: Images reviewed. No definitive infiltrates. Additional Diagnostic Studies: The condition of the patient indicated a high probability of deterioration and required critical care services. My time excluded minutes spent performing separately billable procedures and time spent treating other patients simultaneously. Critical Care Management included: Chart review, discussing with participating medical team, review of vital statistics, laboratories, radiographic studies,and prior records, current and previous medications, and current and previous treatment plans/orders. Critical Care Time: 45 Minutes Zachary Roe MD, PhD [facility] Critical [facility] 8:17 AM 01/05/2022 Zachary Roe MD, PhD - 01/04/2022 8:38 AM PDT Images from the original note were not included. CRITICAL CARE PROGRESS NOTE Patient Name: Mauri Levine : 1985 Admit Date: 01/03/2022 Admitting Physician: Dimas Townsend MD PCP: Flo Peña MD Date of Service: 01/04/2022 Hospital Day: 2 Reason for CCU admission: Metabolic alkalosis, acute on chronic kidney failure CCU SUMMARY 36-year-old gentleman who presented to an outside facility with worsening nausea, vomiting and altered mentation. Notably he has a history of poorly controlled type 1 diabetes, severe gastroparesis andhas had prior admissions for severe electrolyte derangements. Seems the patient was initially admitted to their hospital with concern for an acute kidney injury and significant metabolic alkalosis. Within the first 24 hours of his stay he became further altered such that he was intubated, possibly following a suspected aspiration event while vomiting. Due to his escalating level of care and possible need for emergent dialysis he was transferred to [facility] on 01/03 for further management. His mother reports that he lives in a camper in [place] behind their house, not allowing them much insight into his medical conditions but they know that he has very poorly controlled diabetes and refractory gastroparesis that has led to him having very poor p.o. intake, poor diet and commonly bedbound, vomiting 5 out of 7 days most weeks. She is unaware of any preceding concerns of fevers, chills or otherwise feeling ill. She notes however at the hospital he was febrile for the entirety of his time there. She also estimates that the subcutaneous port he has had has been in place for maybe 4 years. He also has a gastric stimulator to try to help his gastroparesis but does not think this is been particular helpful 24 Events On the vent Sedation off this am for SAT, slow to arouse Purposeful on the right On insulin gtt, BG 215 Nephrology following On meropenem and acyclovir >3200 out in mcknight overnight NGT with bile output ASSESSMENT / PLAN Active Hospital Problems Diagnosis Acute renal failure (ARF) ([facility]) [N17.9] Respiratory failure ([facility]) [J96.90] Hyperosmolar hyperglycemic state (HHS) ([facility]) [E11.00, E11.65] *Metabolic alkalosis [E87.3] Stage 3a chronic kidney disease ([facility]) [N18.31] Anemia [D64.9] Prolonged Q-T interval on ECG [R94.31] Non compliance w medication regimen [Z91.14] PLAN: Pulm: Acute respiratory failure -SAT SBT today extubate if tolerates -Lung protective ventilation strategy -Titrate FiO2 and PEEP to keep O2 sats greater than 88% Cardiovascular: - Monitor QT closely -Very well controlled now -Goal MAP greater than 65 ID: Meningitis/encephalitis -Continue empiric Merrem, vancomycin, acyclovir -Follow-up cultures Neuro: Encephalopathy -Possibly viral meningitis/encephalitis. Bacterial meningitis not ruled out yet. -SAT today Renal: ROSALIO, CKD, hyperosmolar -Nephrology following. Responding to fluids. -Mcknight, strict I's and O's -Renal panel in the morning GI: Severe gastroparesis -Place NG tube for possible extubation -Holding on tube feeds at this point Endo: Hyperglycemia -Continue insulin drip and follow blood sugars closely -Continue fluid resuscitation Heme: Anemia -Transfuse hemoglobin less than 7 or active bleeding -No indication transfuse currently Nutrition: NPO VTE Prophylaxis:chemical prophylaxis with Heparin subcu Multidiscplinary rounds performed: Yes Family: Mother at bedside Code Status: Full Code CCU DISPOSITION-: CCU OBJECTIVE PHYSICAL EXAM: Physical Exam Vitals and nursing note reviewed. Constitutional: Appearance: He is well-developed. Interventions: He is sedated and intubated. HENT: Head: Normocephalic and atraumatic. Mouth/Throat: Mouth: Mucous membranes are moist. Pharynx: Oropharynx is clear. Eyes: Conjunctiva/sclera: Conjunctivae normal. Pupils: Pupils are equal, round, and reactive to light. Cardiovascular: Rate and Rhythm: Normal rate and regular rhythm. Heart sounds: Normal heart sounds. No murmur heard. Pulmonary: Effort: Pulmonary effort is normal. No respiratory distress. He is intubated. Breath sounds: Decreased air movement present. No wheezing, rhonchi or rales. Abdominal: General: Bowel sounds are decreased. Palpations: Abdomen is soft. Tenderness: There is no abdominal tenderness. There is no rebound. Musculoskeletal: Cervical back: Neck supple. Skin: General: Skin is warm and dry. Neurological: General: No focal deficit present. Mental Status: He is lethargic. BP 118/58 | Pulse 57 | Temp (Src) 98.24 (Bladder) | Resp 18 | Wt 152 lb 1.9 oz (69 kg) | SaO2 100% Intake/Output Summary (Last 24 hours) at 01/04/2022 0839 Last data filed at 01/04/2022 0800 Gross per 24 hour Intake 4092 ml Output 5660 ml Net -1568 ml MEDS: I have personally reviewed the current medication list. Yes IVF/IV Meds: lactated ringers, Last Rate: 100 mL/hr at 01/04/22 0800 dextrose 5 % and lactated ringers, Last Rate: Stopped (01/04/22 0549) fentanyl IV continuous infusion, Last Rate: Stopped (01/04/22 0641) insulin regular (human) IV continuous infusion, Last Rate: 8 Units/hr (01/04/22 0830) propofol (DIPRIVAN) IV infusion, Last Rate: Stopped (01/04/22 0549) LABS: I have personally reviewed the available labs. Yes Comments: NA 140, K3.7, CO2 28, BUN 57, CR 3.6, GLU 247 WBC 14.3, Hgb 10.5, HCT 31.5, PLT 175 RADIOLOGY: I have personally reviewed today's imaging. Yes Interpretations: Chest x-ray 01/03/2022: Images reviewed. No definitive infiltrates. Additional Diagnostic Studies: The condition of the patient indicated a high probability of deterioration and required critical care services. My time excluded minutes spent performing separately billable procedures and time spent treating other patients simultaneously. Critical Care Management included: Chart review, discussing with participating medical team, review of vital statistics, laboratories, radiographic studies,and prior records, current and previous medications, and current and previous treatment plans/orders. Critical Care Time: 45 Minutes Zachary Roe MD, PhD [facility] 8:39 AM 01/04/2022 Mustapha Leonard, DO - 01/04/2022 7:52 AM PDT NEPHROLOGY PROGRESS NOTE ASSESSMENT AND PLAN: 36-year-old male with diabetes mellitus type 1 presents the hospital with intractable nausea vomiting presumably secondary to diabetic gastroparesis. Hyperosmolar state, hypovolemia, volume contractionmetabolic alkalosis, hypokalemia, acute kidney injury on chronic kidney disease. 1) ROSALIO Prerenal hypovolemia, improving with IVF, management of hyperglycemia Plan to continue to volume resuscitate and follow serial kidney function tests Marie panel at 1400 today and again in AM Continue LR at 100 ml/hr Would renal dose medications for GFR between 15 and 30 mL/min 2) Chronic kidney disease, stage III-4 Normal kidney sizes with increased renal echogenicity on ultrasound Baseline serum creatinine around 1.7-2.0 Baseline macro albuminuria, suggests glomerulopathy, diabetic nephropathy suspected Follows with Dr. Mills in [place] CC: I saw the patient on the frye today for follow-up of acute on chronic kidney injury, multiple electrolyte abnormalities. Significant progress overnight. Currently off sedation and working on trying to get him off the ventilator. He is not exactly following commands but is moving all extremities. Reviewed vitals flowsheets and laboratories. Discussed care with bedside nursing, updated orders. Unable to perform review of systems due to patient medical condition. Physical Exam General: No acute distress, intubated, appears comfortable Eyes: Anicteric sclerae, conjunctiva pink HENT: Mucous membranes moist, ETT in place Lungs: Coarse ventilator sounds bilaterally, normal respiratory effort CV: Regular rate and rhythm no murmurs clicks or rubs, no jugular venous distention Abdomen: Soft, non-tender; nondistended, bowel sounds present Extremities: No lower extremity pedal edema, no cyanosis Skin: Normal temperature, no rash noted on face or hands Vitals: 01/04/22 0400 01/04/22 0431 01/04/22 0500 01/04/22 0600 BP: (!) 164/63 (!) 176/61 (!) 170/77 Pulse: 51 59 54 59 Resp: 18 18 18 18 Temp: 96.8 F (36 C) 97.5 F (36.4 C) 98.2 F (36.8 C) TempSrc: SpO2: 98% 100% 100% 100% Weight: 152 lb 1.9 oz (69 kg) Patient Active Problem List Diagnosis Acute renal failure (ARF) (CMS/HCC) Respiratory failure (CMS/HCC) Metabolic alkalosis Stage 3a chronic kidney disease (CMS/HCC) Hyperosmolar hyperglycemic state (HHS) (CMS/HCC) Mitral valve prolapse Nonrheumatic aortic valve insufficiency Anemia Prolonged Q-T interval on ECG Non compliance w medication regimen Current Facility-Administered Medications Medication Dose Route Frequency Provider Last Rate Last Admin hydrALAZINE (APRESOLINE) 20 mg/mL inj 10 mg 10 mg Intravenous q6h PRN Dimas Townsend MD 10mg at 01/04/22 0637 lactated ringers (LR) infusion soln Intravenous continuous Mustapha Leonard DO acetaminophen (TYLENOL 32 mg/mL) oral liquid 1,000 mg 1,000 mg Oral tid PRN Dimas Townsend MD 1,000 mg at 01/03/22 1942 acyclovir (ZOVIRAX) 685 mg in 0.9 % NaCl (NS) 150 mL IV piggyback 10 mg/kg/DOSE Intravenous [id number] Townsend MD 150 mL/hr at 01/03/223 685 mg at 01/03/22 2223 chlorhexidine (PERIDEX) 0.12 % oral soln 15 mL 15 mL Mouth/Throat bid Dimas Townsend MD 15mL at 01/03/22 1841 dexamethasone PF (pres-free) (DECADRON) 10 MG/ML inj 10 mg 10 mg Intravenous q6s Dimas Townsend MD 10 mg at 01/04/22 0533 dextrose 5 % and lactated ringers (D5 LR) IV solution Intravenous titrate Dimas Townsend MD End of Infusion at 01/04/22 0549 dextrose 50 % IV solution 25 mL 25 mL Intravenous PRN Dimas Townsend MD Famotidine (PF) (PEPCID) 10 mg/mL inj 20 mg 20 mg Intravenous daily Dimas Townsend MD 20 mg at 01/04/22 0533 fentanyl (SUBLIMAZE) 50 mcg/mL (2 mL) inj 50-100 mcg 50-100 mcg Intravenous PRN Nurys Nichols PA-C 100 mcg at 01/04/22 0108 fentaNYL citrate (SUBLIMAZE) 2500 MCG/50ML IV infusion 1-400 mcg/hr Intravenous titrate Dimas Townsend MD End of Infusion at 01/04/22 0641 heparin 5000 units/mL inj 5,000 Units 5,000 Units Subcutaneous q8h Dimas Townsend MD 5,000Units at 01/04/22 0533 insulin regular (human) 100 units in NS 100 mL IV infusion 0.1 Units/kg/hr Intravenous titrate Dimas Townsend MD 14 mL/hr at 01/04/22 0730 14 Units/hr at 01/04/22 0730 meropenem (MERREM) 1,000 mg in 0.9 % NaCl (NS) 100 mL IV piggyback 1,000 mg Intravenous q12h Dimas Townsend MD 200 mL/hr at 01/03/228 1,000 mg at 01/03/22 2138 propofol 10 mg/mL inj 25-300 mcg/kg/min Intravenous continuous Dimas Townsend MD End of Infusion at 01/04/22 0549 vancomycin therapy indicator 1 Each 1 Each Other q24h PRN Dimas Townsend MD Laboratory and Diagnostic Data Labs in the last 24 hours Basic Metabolic Panel Collection Time: 01/03/22 1:28 PM Result Value Ref Range Sodium 135 (L) 136 - 145 mmol/L Potassium 3.1 (L) 3.5 - 5.0 mmol/L Chloride 83 (L) 99 - 109 mmol/L CO2 40 (H) 23 - 33 mmol/L Anion Gap 12 5 - 16 ratio Creatinine 4.99 (H) 0.50 - 1.30 mg/dL BUN 71 (H) 8 - 25 mg/dL Glucose 369 (H) 65 - 99 mg/dL Calcium 6.8 (L) 8.5 - 10.2 mg/dL Estimated Glomerular Filtration Rate (eGFR) 15 (L) >=60 mL/min/1.73 m2 Prothrombin Time (PT) and Partial Thromboplastin Time (PTT) Collection Time: 01/03/22 1:28 PM Result Value Ref Range Protime 13.8 11.6 - 14.7 seconds INR 1.1 0.9 - 1.2 ratio aPTT 32.6 23.5 - 34.6 seconds Lactic Acid, Venous Collection Time: 01/03/22 1:28 PM Result Value Ref Range Lactic Acid, Venous 2.9 (H) 0.5 - 2.2 mmol/L Magnesium Collection Time: 01/03/22 1:28 PM Result Value Ref Range Magnesium 3.4 (HH) 1.7 - 2.4 mg/dL Phosphorus Collection Time: 01/03/22 1:28 PM Result Value Ref Range Phosphorus 4.2 2.3 - 4.8 mg/dL CBC w/Auto Differential Collection Time: 01/03/22 1:28 PM Result Value Ref Range WBC 14.29 (H) 4.00 - 11.00 x10E3/uL RBC 3.79 (L) 4.30 - 5.70 x10E6/uL Hemoglobin 10.5 (L) 13.7 - 16.7 g/dL Hematocrit 31.5 (L) 40.0 - 50.0 % MCV 83.1 80.0 - 100.0 fL MCH 27.7 27.0 - 34.0 pg MCHC 33.3 31.5 - 35.7 g/dL RDW 13.1 11.0 - 15.0 % Platelet Count 175 150 - 400 x10E3/uL MPV 12.8 (H) 9.4 - 12.4 fL Neutrophils %, Automated 83.8 (H) 40.0 - 80.0 % Immature Granulocytes %, Automated 0.5 0.0 - 1.0 % Lymphocytes %, Automated 5.7 (L) 15.0 - 45.0 % Monocytes %, Automated 9.9 0.0 - 12.0 % Eosinophils %, Automated 0.0 0.0 - 7.0 % Basophils %, Automated 0.1 0.0 - 2.0 % Neutrophils Abs, Automated 11.97 (H) 2.00 - 7.30 x10E3/uL Immature Granulocyte Abs, Automated 0.07 (H) 0.00 - 0.05 x10E3/uL Lymphocytes Abs, Automated 0.82 (L) 1.00 - 3.40 x10E3/uL Monocytes Abs, Automated 1.42 (H) 0.00 - 0.80 x10E3/uL Eosinophils Abs, Automated <0.03 0.00 - 0.50 x10E3/uL Basophils Abs, Automated <0.03 0.00 - 0.10 x10E3/uL nRBC %, Automated 0.0 0.0 - 1.0 /100 WBC nRBC Abs, Automated 0.00 0.00 - 0.01 x10E3/uL CK Collection Time: 01/03/22 1:28 PM Result Value Ref Range CK 662 (H) 55 - 400 U/L TSH Collection Time: 01/03/22 1:28 PM Result Value Ref Range Thyroid-Stimulating Hormone (TSH) 0.33 0.27 - 4.20 uIU/mL Hemoglobin A1c Collection Time: 01/03/22 1:28 PM Result Value Ref Range Hemoglobin A1c 8.4 (H) 4.2 - 5.6 % Estimated Average Glucose (EAG) 194 mg/dL Hepatic Function Panel Collection Time: 01/03/22 1:28 PM Result Value Ref Range Total Protein 5.6 (L) 6.3 - 8.0 g/dL Albumin 3.0 (L) 3.5 - 5.0 g/dL Globulin 2.6 1.8 - 3.5 g/dL Albumin/Globulin Ratio 1.2 1.0 - 2.7 ratio Total Bilirubin 0.3 0.1 - 1.5 mg/dL Direct Bilirubin <0.2 0.0 - 0.4 mg/dL ALT 28 10 - 65 U/L Alk Phos 107 35 - 115 U/L AST 52 (H) 10 - 45 U/L Lipase Collection Time: 01/03/22 1:28 PM Result Value Ref Range Lipase 135 (H) 7 - 60 U/L HIV Screen Collection Time: 01/03/22 1:28 PM Result Value Ref Range HIV 1/HIV 2 Antibodies Nonreactive Nonreactive HIV-1 P24 Antigen Nonreactive Nonreactive POC Blood Gas, Arterial Collection Time: 01/03/22 1:30 PM Result Value Ref Range pH, Arterial (POC) 7.61 (HH) 7.35 - 7.45 pH, Arterial (Temp Corrected) (POC) pCO2, Arterial (POC) 38 35 - 45 mmHg pCO2, Arterial (Temp Corrected) (POC) pO2, Arterial (POC) 81 70 - 90 mmHg pO2, Arterial (Temp Corrected) (POC) TCO2, Arterial (POC) 40 (H) 21 - 28 mmol/L O2 Sat, Arterial (POC) 97.7 94 - 98 % Base Excess, Arterial (POC) 15.9 (H) -2 - 2 mmol/L HCO3, Arterial (POC) 38.6 (H) 21 - 27 mmol/L Pt. Respiratory Rate (POC) 18 Liters/Minute (POC) Mode (POC) AC FIO2 (POC) 30.0 Peep (POC) 5 Tidal Volume (POC) 420 Delivery System (POC) Adult Vent Set Respiratory Rate (POC) Peak Inspiratory Pressure (POC) Inspiratory Time (POC) Pressure Support (POC) Patient Temp (POC) POC ChemStat Collection Time: 01/03/22 1:30 PM Result Value Ref Range Sodium (POC) 133 (L) 135 - 145 mmol/L Potassium (POC) 2.9 (L) 3.5 - 5.0 mmol/L Chloride (POC) 84 (L) 99 - 109 mmol/L Creatinine (POC) 5.4 (H) 0.5 - 1.3 mg/dL eGFR (POC) 12 Glucose (POC) 347 (H) 65 - 99 mg/dL Ionized Calcium (POC) 3.30 (L) 4.75 - 5.30 mg/dL Hemoglobin (POC) 11.2 (L) 13.7 - 16.7 g/dL Hematocrit (POC) 33.0 (L) 40.0 - 50.0 % POC Lactic Acid (Lactate) Collection Time: 01/03/22 1:30 PM Result Value Ref Range Lactic Acid (POC) 2.4 (H) 0.5 - 2.2 mmol/L Urinalysis w/Microscopic and Culture if Indicated Collection Time: 01/03/22 1:48 PM Result Value Ref Range Color Yellow Straw, Yellow, Light Yellow, Dark Yellow Clarity, Urine Clear Clear Specific Jay, Urine 1.015 1.005 - 1.030 pH, Ur 8.5 (H) 5.0 - 7.5 pH unit Protein, Urine 100 (A) Negative mg/dL Glucose, Ur 250 (A) Negative mg/dL Ketones, Ur Negative Negative mg/dL Occult blood Moderate (A) Negative Bilirubin Negative Negative Leukocyte Esterase, Ur Negative Negative Nitrite, Ur Negative Negative Urobilinogen, Urine 0.2 0.2, 1.0 mg/dL RBC, Urine 1 <3.0 /HPF WBC, Ur 1 <6 /HPF Squamous Epithelials, Ur 0 <=8 /HPF Bacteria None Seen None Seen /HPF Urine Drug Screen Collection Time: 01/03/22 1:48 PM Result Value Ref Range Amphet/Methamphet Screen, [...] Random Positive (A) Negative Creatinine, Urine Random 34.2 None Established mg/dL POC Glucose Collection Time: 01/03/22 3:07 PM Result Value Ref Range Glucose (POC) 346 (H) 65 - 99 mg/dL POC Potassium Collection Time: 01/03/22 4:06 PM Result Value Ref Range Potassium (POC) 4.3 3.5 - 5.0 mmol/L POC Glucose Collection Time: 01/03/22 4:06 PM Result Value Ref Range Glucose (POC) 446 (H) 65 - 99 mg/dL POC Lactic Acid (Lactate) Collection Time: 01/03/22 4:06 PM Result Value Ref Range Lactic Acid (POC) 1.6 0.5 - 2.2 mmol/L Basic Metabolic Panel Collection Time: 01/03/22 4:14 PM Result Value Ref Range Sodium 136 136 - 145 mmol/L Potassium 4.2 3.5 - 5.0 mmol/L Chloride 86 (L) 99 - 109 mmol/L CO2 31 23 - 33 mmol/L Anion Gap 19 (H) 5 - 16 ratio Creatinine 4.63 (H) 0.50 - 1.30 mg/dL BUN 69 (H) 8 - 25 mg/dL Glucose 491 (H) 65 - 99 mg/dL Calcium 6.9 (L) 8.5 - 10.2 mg/dL Estimated Glomerular Filtration Rate (eGFR) 16 (L) >=60 mL/min/1.73 m2 Phosphorus Collection Time: 01/03/22 4:14 PM Result Value Ref Range Phosphorus 4.1 2.3 - 4.8 mg/dL POC Glucose Collection Time: 01/03/22 5:06 PM Result Value Ref Range Glucose (POC) 428 (H) 65 - 99 mg/dL POC Blood Gas, Arterial Collection Time: 01/03/22 5:41 PM Result Value Ref Range pH, Arterial (POC) 7.56 (H) 7.35 - 7.45 pH, Arterial (Temp Corrected) (POC) pCO2, Arterial (POC) 36 35 - 45 mmHg pCO2, Arterial (Temp Corrected) (POC) pO2, Arterial (POC) 111 (H) 70 - 90 mmHg pO2, Arterial (Temp Corrected) (POC) TCO2, Arterial (POC) 33 (H) 21 - 28 mmol/L O2 Sat, Arterial (POC) 98.9 (H) 94 - 98 % Base Excess, Arterial (POC) 9.2 (H) -2 - 2 mmol/L HCO3, Arterial (POC) 32.0 (H) 21 - 27 mmol/L Pt. Respiratory Rate (POC) 18 Liters/Minute (POC) Mode (POC) FIO2 (POC) Peep (POC) 5 Tidal Volume (POC) 420 Delivery System (POC) Set Respiratory Rate (POC) Peak Inspiratory Pressure (POC) Inspiratory Time (POC) Pressure Support (POC) Patient Temp (POC) POC ChemStat Collection Time: 01/03/22 5:41 PM Result Value Ref Range Sodium (POC) 134 (L) 135 - 145 mmol/L Potassium (POC) 3.3 (L) 3.5 - 5.0 mmol/L Chloride (POC) 90 (L) 99 - 109 mmol/L Creatinine (POC) 5.0 (H) 0.5 - 1.3 mg/dL eGFR (POC) 13 Glucose (POC) 403 (H) 65 - 99 mg/dL Ionized Calcium (POC) 3.60 (L) 4.75 - 5.30 mg/dL Hemoglobin (POC) 11.6 (L) 13.7 - 16.7 g/dL Hematocrit (POC) 34.0 (L) 40.0 - 50.0 % POC Lactic Acid (Lactate) Collection Time: 01/03/22 5:41 PM Result Value Ref Range Lactic Acid (POC) 3.6 (H) 0.5 - 2.2 mmol/L Culture, CSF Collection Time: 01/03/22 6:24 PM Specimen: Lumbar Puncture; Cerebrospinal fluid Result Value Ref Range Gram Stain No White Blood Cells seen Gram Stain No organisms seen Glucose, CSF Collection Time: 01/03/22 6:24 PM Result Value Ref Range Glucose, CSF 236 (H) 40 - 70 mg/dL CSF Tube # 2 Total Protein, CSF Collection Time: 01/03/22 6:24 PM Result Value Ref Range Total Protein, CSF 94 (H) 15 - 45 mg/dL CSF Tube # 2 Cell Count W/reflex Differential, CSF Collection Time: 01/03/22 6:24 PM Result Value Ref Range Color, Fld Colorless Colorless Clarity, CSF Clear Clear Red Blood Cell Count, CSF 289 cells/uL Nucleated Cell Count, CSF 80 (HH) 0 - 5 cells/uL CSF TUBE # 3 Differential, CSF Collection Time: 01/03/22 6:24 PM Result Value Ref Range Neutrophils %, Manual 98 (H) 0 - 6 % Lymphocytes %, Manual 1 (L) 40 - 80 % Monocytes %, Manual 1 (L) 15 - 45 % POC Glucose Collection Time: 01/03/22 7:00 PM Result Value Ref Range Glucose (POC) 302 (H) 65 - 99 mg/dL POC Glucose Collection Time: 01/03/22 7:53 PM Result Value Ref Range Glucose (POC) 213 (H) 65 - 99 mg/dL Basic Metabolic Panel Collection Time: 01/03/22 8:31 PM Result Value Ref Range Sodium 140 136 - 145 mmol/L Potassium 3.1 (L) 3.5 - 5.0 mmol/L Chloride 92 (L) 99 - 109 mmol/L CO2 34 (H) 23 - 33 mmol/L Anion Gap 14 5 - 16 ratio Creatinine 4.51 (H) 0.50 - 1.30 mg/dL BUN 66 (H) 8 - 25 mg/dL Glucose 179 (H) 65 - 99 mg/dL Calcium 7.9 (L) 8.5 - 10.2 mg/dL Estimated Glomerular Filtration Rate (eGFR) 17 (L) >=60 mL/min/1.73 m2 Phosphorus Collection Time: 01/03/22 8:31 PM Result Value Ref Range Phosphorus 3.3 2.3 - 4.8 mg/dL POC Glucose Collection Time: 01/03/22 8:50 PM Result Value Ref Range Glucose (POC) 149 (H) 65 - 99 mg/dL POC Glucose Collection Time: 01/03/22 9:42 PM Result Value Ref Range Glucose (POC) 124 (H) 65 - 99 mg/dL POC Glucose Collection Time: 01/03/22 10:21 PM Result Value Ref Range Glucose (POC) 121 (H) 65 - 99 mg/dL POC Glucose Collection Time: 01/03/22 10:56 PM Result Value Ref Range Glucose (POC) 102 (H) 65 - 99 mg/dL Basic Metabolic Panel Collection Time: 01/03/22 11:37 PM Result Value Ref Range Sodium 140 136 - 145 mmol/L Potassium 3.2 (L) 3.5 - 5.0 mmol/L Chloride 93 (L) 99 - 109 mmol/L CO2 35 (H) 23 - 33 mmol/L Anion Gap 12 5 - 16 ratio Creatinine 4.23 (H) 0.50 - 1.30 mg/dL BUN 58 (H) 8 - 25 mg/dL Glucose 101 (H) 65 - 99 mg/dL Calcium 7.7 (L) 8.5 - 10.2 mg/dL Estimated Glomerular Filtration Rate (eGFR) 18 (L) >=60 mL/min/1.73 m2 Phosphorus Collection Time: 01/03/22 11:37 PM Result Value Ref Range Phosphorus 3.2 2.3 - 4.8 mg/dL POC Glucose Collection Time: 01/03/22 11:41 PM Result Value Ref Range Glucose (POC) 101 (H) 65 - 99 mg/dL POC Glucose Collection Time: 01/04/22 12:31 AM Result Value Ref Range Glucose (POC) 135 (H) 65 - 99 mg/dL POC Glucose Collection Time: 01/04/22 1:03 AM Result Value Ref Range Glucose (POC) 154 (H) 65 - 99 mg/dL Magnesium Collection Time: 01/04/22 2:28 AM Result Value Ref Range Magnesium 2.5 (H) 1.7 - 2.4 mg/dL Potassium Collection Time: 01/04/22 2:28 AM Result Value Ref Range Potassium 3.9 3.5 - 5.0 mmol/L POC Glucose Collection Time: 01/04/22 2:34 AM Result Value Ref Range Glucose (POC) 205 (H) 65 - 99 mg/dL Vancomycin, Random Collection Time: 01/04/22 4:13 AM Result Value Ref Range Vancomycin, Random 19.5 5.0 - 40.0 ug/mL Basic Metabolic Panel Collection Time: 01/04/22 4:13 AM Result Value Ref Range Sodium 136 136 - 145 mmol/L Potassium 4.9 3.5 - 5.0 mmol/L Chloride 95 (L) 99 - 109 mmol/L CO2 26 23 - 33 mmol/L Anion Gap 15 5 - 16 ratio Creatinine 3.80 (H) 0.50 - 1.30 mg/dL BUN 59 (H) 8 - 25 mg/dL Glucose 507 (HH) 65 - 99 mg/dL Calcium 8.1 (L) 8.5 - 10.2 mg/dL Estimated Glomerular Filtration Rate (eGFR) 20 (L) >=60 mL/min/1.73 m2 Phosphorus Collection Time: 01/04/22 4:13 AM Result Value Ref Range Phosphorus 3.3 2.3 - 4.8 mg/dL POC Glucose Collection Time: 01/04/22 4:19 AM Result Value Ref Range Glucose (POC) 482 (H) 65 - 99 mg/dL POC Glucose Collection Time: 01/04/22 5:18 AM Result Value Ref Range Glucose (POC) 545 (HH) 65 - 99 mg/dL POC Glucose Collection Time: 01/04/22 5:20 AM Result Value Ref Range Glucose (POC) 481 (H) 65 - 99 mg/dL POC Glucose Collection Time: 01/04/22 6:34 AM Result Value Ref Range Glucose (POC) 453 (H) 65 - 99 mg/dL POC Glucose Collection Time: 01/04/22 7:28 AM Result Value Ref Range Glucose (POC) 323 (H) 65 - 99 mg/dL Available imaging results reviewed. documented in this encounter H&P Notes Nurys Nichols PA-C - 01/03/2022 1:34 PM PDT Images from the original note were not included. CRITICAL CARE ADMIT NOTE Patient Name: Mauri Levine : 1985 Admit Date: 01/03/2022 Admitting Physician: Dimas Townsend MD PCP: Flo Peña MD Date of Service: 01/03/2022 Hospital Day: 1 Reason for CCU admission: Metabolic alkalosis, acute on chronic kidney failure ASSESSMENT / PLAN Active Hospital Problems Diagnosis Acute renal failure (ARF) ([facility]) [N17.9] Respiratory failure ([facility]) [J96.90] *Metabolic alkalosis [E87.3] Stage 3a chronic kidney disease ([facility]) [N18.31] Hyperosmolar hyperglycemic state (HHS) ([facility]) [E11.00, E11.65] Anemia [D64.9] Prolonged Q-T interval on ECG [R94.31] Non compliance w medication regimen [Z91.14] Neuro: -CAM assessment per shift -melatonin PRN for good sleep hygiene -acetaminophen 650mg PO q6h PRN pain/fever -Pain, agitation, and delirium assessment per ICU protocol. -RASS goal: 0 -Sedation off until proper neuro exam -Propofol and fentanyl otherwise for sedation Cardiovascular: -continue hemodynamic monitoring -continuous telemetry -goal normotensive, MAP > 65, SBP < 160 Pulmonary: -Encourage good bronchopulmonary hygiene -Lung protective ventilation: keep driving pressure <15, plateau<30, goal Pao2 >55, pH 7.2-7.45 (allow permissive hypercapnia) -continue supplementary O2 to maintain SaO2 > 88% -Elevate HOB, aspiration precautions, pulmonary hygiene GI: -Diet: NPO -Stress ulcer prophylaxis: fatmotidine 20 mg IV daily -Bowel regimen: will reassess Renal: -electrolyte repletion per ICU noncardiac protocol -Monitor urine output and I/Os -[Trend BMP] -Nephrology consulted. No urgent need for dialysis. Will continue to trend electrolytes Heme/Onc: At risk for venous thromboembolism -heparin 5000 units q8h Endocrine: -Insulin drip with LR -goal BS 80-180 -hypoglycemia protocol ID: -Piperacillin-tazobactam 3.375 g IV q6H Skin: No issues- at risk for deep tissue injury -frequent turning in bed Therapy: PT, OT when appropriate CODE STATUS/discussion: Code Status: Full Code Lines/Drains/Devices: trach, kyree, JT Family/contacts: unknown Dispo: ICU Consults: Nephrology History of Present Illness 36 yo male with significant PMH specifically uncontrolled type 1 diabetes complicated with CKD, neuropathy, gastroparesis, retinopathy, hyperlipidemia who presented to [facility] in [place], [place] 01/02/22 with nausea and vomiting. Patient has had multiple admissions. According to patient, he has been having issues with insurance and was unable to obtain refill of sensors for his bloodglucose pump and he has not been able to use alternative to measure blood glucose. Patient's pump onadmission was empty. In ED patient with hyperemesis, and became severely hypoxic and cyanotic. Patient was intubated for airway protection. Initial labs were blood glucose of 1381, lactate 4, potassium 3.2, sodium 117 (butcorrected within normal limits). Creatinine 5.7 with a BUN of 85. Elevated mag and hypokalemia. Beta hydroxybutyric acid 21. Reactive leukocytosis. Elevated bicarb and anion gap. IV fluids administeredand insulin drip initiated. 01/03 Patient was aggressively treated with IV fluid and insulin. Alkalosis not improving. Febrile. Empiric antibiotics started (zosyn) with blood cultures pending. No improvement in creatinine or electrolyte disturbance. Transferred to ICU for potential need for dialysis Past Medical History: Diagnosis Date Anxiety Diabetic peripheral neuropathy (CMS/HCC) Esophageal candidiasis ([facility]) Gastroparesis History of neuroleptic malignant syndrome Hyperlipidemia Hypertension Connie-Byrne tear Marijuana use, continuous Retinopathy due to secondary diabetes ([facility]/HCC) Testosterone deficiency in male Type 1 diabetes mellitus with stage 3a chronic kidney disease ([facility]) Past Surgical History: Procedure Laterality Date H/O HAND SURGERY P CORRECTION, HALLUX VALGUS W SESAMOIDECTOMY,W PROX METATARSALOTOMY, ANY METHOD Left Family History Adopted: Yes Problem Relation Name Age of Onset Hypertension Mother Atrial fibrillation Mother Hypertension Father Colon Cancer Maternal Grandfather Breast Cancer Sister Social History Tobacco Use Smoking status: Former Smoker Types: Cigarettes Quit date: 02/12/2011 Years since quittin.8 Smokeless tobacco: Not on file Substance Use Topics Alcohol use: Not Currently Drug use: Yes Types: Marijuana MEDS: I have personally reviewed the current medication list. Yes Home Medications - Last Reviewed On: 01/03/22 1540 Not on File Patients documented allergies Allergen Reactions Prochlorperazine Unknown and Agitation/Anxiety "My whole body freaks out" Per [facility] Silver Rash Iodinated Diagnostic Agents Unknown Dystonic Per [facility] Nsaids Unknown Per [facility] Metoclopramide Agitation/Anxiety Per [facility] REVIEW OF SYSTEMS: Review of Systems OBJECTIVE PHYSICAL EXAM: BP 142/70 | Pulse 67 | Temp (Src) 102.6 (Bladder) | Resp 21 | Wt 151 lb 0.2 oz (68.5 kg) | SaO2 100% CONSTITUTIONAL: [Intubated and sedated. Critically ill appearing. EYES: right pupil 4mm and brisk, left 5mm and slower than right. Conjunctiva clear. No scleral icterus. EAR, NOSE, MOUTH AND THROAT: [ET tube in place. Oral mucosa pink and moist. HEAD and FACE: [Normocephalic and atraumatic, face is symmetric. NECK: [Trachea midline. Neck is supple, no lymphadenopathy. No thyromegaly.] [No JVD]. RESPIRATORY: [Normal chest excursion. Clear to auscultation bilaterally. No adventitious sounds. No wheezes or rhonchi.] CARDIOVASCULAR: [Regular rate and rhythm without murmurs rubs or gallops. No S3 or S4.] GI/ABDOMEN: [Scars, potentially past surgical. Soft, nontender, nondistended. No organomegaly. Palpable inplant or hard mass of some sort. Bowel sounds are normal.] : [Normal external genitalia. Mcknight catheter in place] MUSCULOSKELETAL: [No deformities. No joint swelling or tenderness. No clubbing or cyanosis. Mild non-pitting lower extremity edema] SKIN: [Warm and dry without rashes or lesions.] [Turgor is normal] [Capillary refill normal. Multiple tattoos NEUROLOGIC: [Sedated to a RASS of -3 Withdrawal to painful stimuli in all four extremities.] MEDS: I have personally reviewed the current medication list. Yes IVF/IV Meds: fentanyl IV continuous infusion, Last Rate: Stopped (01/03/22 1345) insulin regular (human) IV continuous infusion, Last Rate: Stopped (01/03/22 1345) lactated ringers, Last Rate: 150 mL/hr at 01/03/22 1430 propofol (DIPRIVAN) IV infusion, Last Rate: Stopped (01/03/22 1400) LABS: I have personally reviewed the available labs. Yes Comments: Admission on 01/03/2022 Component Value Ref Range Sodium 135 (A) 136 - 145 mmol/L Potassium 3.1 (A) 3.5 - 5.0 mmol/L Chloride 83 (A) 99 - 109 mmol/L CO2 40 (A) 23 - 33 mmol/L Anion Gap 12 5 - 16 ratio Creatinine 4.99 (A) 0.50 - 1.30 mg/dL BUN 71 (A) 8 - 25 mg/dL Glucose 369 (A) 65 - 99 mg/dL Calcium 6.8 (A) 8.5 - 10.2 mg/dL Estimated Glomerular Filtration Ra* 15 (A) >=60 mL/min/1.73 m2 COAGULATION Protime 13.8 11.6 - 14.7 seconds INR 1.1 0.9 - 1.2 ratio aPTT 32.6 23.5 - 34.6 seconds Lactic Acid, Venous 2.9 (A) 0.5 - 2.2 mmol/L Magnesium 3.4 (A) 1.7 - 2.4 mg/dL Phosphorus 4.2 2.3 - 4.8 mg/dL CBC WBC 14.29 (A) 4.00 - 11.00 x10E3/uL RBC 3.79 (A) 4.30 - 5.70 x10E6/uL Hemoglobin 10.5 (A) 13.7 - 16.7 g/dL Hematocrit 31.5 (A) 40.0 - 50.0 % MCV 83.1 80.0 - 100.0 fL MCH 27.7 27.0 - 34.0 pg MCHC 33.3 31.5 - 35.7 g/dL RDW 13.1 11.0 - 15.0 % Platelet Count 175 150 - 400 x10E3/uL MPV 12.8 (A) 9.4 - 12.4 fL Neutrophils %, Automated 83.8 (A) 40.0 - 80.0 % Immature Granulocytes %, Automated 0.5 0.0 - 1.0 % Lymphocytes %, Automated 5.7 (A) 15.0 - 45.0 % Monocytes %, Automated 9.9 0.0 - 12.0 % Eosinophils %, Automated 0.0 0.0 - 7.0 % Basophils %, Automated 0.1 0.0 - 2.0 % Neutrophils Abs, Automated 11.97 (A) 2.00 - 7.30 x10E3/uL Immature Granulocyte Abs, Automated 0.07 (A) 0.00 - 0.05 x10E3/uL Lymphocytes Abs, Automated 0.82 (A) 1.00 - 3.40 x10E3/uL Monocytes Abs, Automated 1.42 (A) 0.00 - 0.80 x10E3/uL Eosinophils Abs, Automated <0.03 0.00 - 0.50 x10E3/uL Basophils Abs, Automated <0.03 0.00 - 0.10 x10E3/uL nRBC %, Automated 0.0 0.0 - 1.0 /100 WBC nRBC Abs, Automated 0.00 0.00 - 0.01 x10E3/uL pH, Arterial (POC) 7.61 (A) 7.35 - 7.45 pCO2, Arterial (POC) 38 35 - 45 mmHg pO2, Arterial (POC) 81 70 - 90 mmHg TCO2, Arterial (POC) 40 (A) 21 - 28 mmol/L O2 Sat, Arterial (POC) 97.7 94 - 98 % Base Excess, Arterial (POC) 15.9 (A) -2 - 2 mmol/L HCO3, Arterial (POC) 38.6 (A) 21 - 27 mmol/L Pt. Respiratory Rate (POC) 18 Mode (POC) AC FIO2 (POC) 30.0 Peep (POC) 5 Tidal Volume (POC) 420 Delivery System (POC) Adult Vent Sodium (POC) 133 (A) 135 - 145 mmol/L Potassium (POC) 2.9 (A) 3.5 - 5.0 mmol/L Chloride (POC) 84 (A) 99 - 109 mmol/L Creatinine (POC) 5.4 (A) 0.5 - 1.3 mg/dL eGFR (POC) 12 Glucose (POC) 347 (A) 65 - 99 mg/dL Ionized Calcium (POC) 3.30 (A) 4.75 - 5.30 mg/dL Hemoglobin (POC) 11.2 (A) 13.7 - 16.7 g/dL Hematocrit (POC) 33.0 (A) 40.0 - 50.0 % Lactic Acid (POC) 2.4 (A) 0.5 - 2.2 mmol/L Color Yellow Straw, Yellow, Light Yellow, Dark Yellow Clarity, Urine Clear Clear Specific Jay, Urine 1.015 1.005 - 1.030 pH, Ur 8.5 (A) 5.0 - 7.5 pH unit Protein, Urine 100 (A) Negative mg/dL Glucose, Ur 250 (A) Negative mg/dL Ketones, Ur Negative Negative mg/dL Occult blood Moderate (A) Negative Bilirubin Negative Negative Leukocyte Esterase, Ur Negative Negative Nitrite, Ur Negative Negative Urobilinogen, Urine 0.2 0.2, 1.0 mg/dL RBC, Urine 1 <3.0 /HPF WBC, Ur 1 <6 /HPF Squamous Epithelials, Ur 0 <=8 /HPF Bacteria None Seen None Seen /HPF CK 662 (A) 55 - 400 U/L Thyroid-Stimulating Hormone (TSH) 0.33 0.27 - 4.20 uIU/mL Amphet/Methamphet Screen, Urine Ra* Negative Negative Barbiturates Screen, Urine Random Negative Negative Benzodiazepines Screen, Urine [place]* Negative Negative Buprenorphine Screen, Urine Random Negative Negative Cocaine Screen, Urine Random Negative Negative Methadone Screen, Urine Random Negative Negative Opiates Screen, Urine Random Negative Negative Oxycodone/Oxymorphone Screen, Urin* Negative Negative Phencyclidine Screen, Urine Random Negative Negative THC Screen, Urine Random Positive (A) Negative A preliminary positive result is based on a screening test only. By physician request, preliminary positive results can be sent to [facility] for confirmation using the preferred confirmatory method of [id number] mass spectrometry. Do not use unconfirmed results for legal purposes. Creatinine, Urine Random 34.2 None Established mg/dL HEART RATE 70 bpm RR Interval 857 ms Atrial Rate 70 ms P-R Interval 128 ms P Duration 96 ms P Horizontal [place] -3 deg P Front [place] 77 deg Q Onset 499 ms QRSD Interval 166 ms QT Interval 620 ms QTcB 670 ms QTcF 653 ms QRS Horizontal [place] -26 deg QRS [place] 91 deg I-40 Horizontal [place] 48 deg I-40 Front [place] -54 deg T-40 Horizontal [place] -32 deg T-40 Front [place] 92 deg T Horizontal [place] 167 deg T Wave [place] 183 deg S-T Horizontal [place] 74 deg S-T Front [place] 114 deg Hemoglobin A1c 8.4 (A) 4.2 - 5.6 % [place] [employer] (ADA) Guidelines. <5.7 Normal 5.7-6.4 Pre-diabetes >=6.5 Diabetes Hemoglobin A1C is based on the average blood glucose values for the preceding 2 to 3 months. The ADArecommends A1C values of less than 7% as the goal for diabetic therapy. Estimated Average Glucose (EAG) 194 mg/dL The ADA considers an eAG result of less than 154 mg/dL to be the goal of diabetic therapy. Estimated Average Glucose calculated from hemoglobin A1c by use of ADA recommended formula. Total Protein 5.6 (A) 6.3 - 8.0 g/dL Albumin 3.0 (A) 3.5 - 5.0 g/dL Globulin 2.6 1.8 - 3.5 g/dL Albumin/Globulin Ratio 1.2 1.0 - 2.7 ratio Total Bilirubin 0.3 0.1 - 1.5 mg/dL Direct Bilirubin <0.2 0.0 - 0.4 mg/dL ALT 28 10 - 65 U/L Alk Phos 107 35 - 115 U/L AST 52 (A) 10 - 45 U/L Lipase 135 (A) 7 - 60 U/L Glucose (POC) 346 (A) 65 - 99 mg/dL RADIOLOGY: I have personally reviewed today's imaging. Yes Interpretations: Additional Diagnostic Studies: Nurys Nichols PA-C Critical Care 4:12 PM 01/03/2022 Note: dictated with voice recognition software. Any errors must be taken in context Associated attestation - Dimas Townsend MD - 01/03/2022 6:24 PM PDT I have seen and examined the patient in conjunction with DONAL Sierra. I agree with the assessment and plan as detailed in the accompanying progress note. Any exceptions to the plan are noted below. HPI: 36-year-old gentleman who presented to an outside facility with worsening nausea, vomiting and altered mentation. Notably he has a history of poorly controlled type 1 diabetes, severe gastroparesis and has had prior admissions for severe electrolyte derangements. Seems the patient was initially admitted to their hospital with concern for an acute kidney injury and significant metabolic alkalosis. Within the first 24 hours of his stay he became further altered such that he was intubated, possibly following a suspected aspiration event while vomiting. Due to his escalating level of care and possible need for emergent dialysis he was transferred to [facility] on 01/03 for further management. His mother reports that he lives in a camper in [place] behind their house, not allowing them much insight into his medical conditions but they know that he has very poorly controlled diabetes and refractory gastroparesis that has led to him having very poor p.o. intake, poor diet and commonly bedbound, vomiting 5 out of 7 days most weeks. She is unaware of any preceding concerns of fevers, chills or otherwise feeling ill. She notes however at the hospital he was febrile for the entirety of his timethere. She also estimates that the subcutaneous port he has had has been in place for maybe 4 years.He also has a gastric stimulator to try to help his gastroparesis but does not think this is been particular helpful Past medical, surgical, family and social history reviewed. Objective: GENERAL: Chronically ill appearing in NAD intubated, periodically moving extremities without purpose HEENT: NC/AT. Anicteric sclera. MMM. ET tube in place Neck: Apparent full range of motion CHEST: Riding the ventilator rate without significant wheezes rhonchi or crackles, vascular access port in right upper chest without surrounding erythema, induration or exudate HEART: RRR, no murmurs, no peripheral edema ABDOMEN: BS+, Soft, nondistended, gastric stimulator palpable in the left upper quadrant EXT: WWP. NEURO: Moves all four extremities. Withdraws to pain. Coughs to deep suctioning, pupils reactive to light however mild anisocoria left greater than right SKIN: No rashes, scattered small abrasions, very warm to touch Labs, medications and imaging reviewed and noted. CBC: Leukocytosis BMP: Severe metabolic derangements with metabolic alkalosis, ROSALIO on CKD, hypokalemia, hypochloremia Lactic acid downtrending from 4.0-2.9 ABG with metabolic alkalosis without overt respiratory acidosis as a compensatory mechanism Chest x-ray with appropriately positioned endotracheal tube, no overt infiltrates CT head without acute pathology EKG with significant QT prolongation Impression: Active Hospital Problems Diagnosis Acute renal failure (ARF) (CMS/HCC) [N17.9] Respiratory failure (CMS/HCC) [J96.90] *Metabolic alkalosis [E87.3] Stage 3a chronic kidney disease (CMS/HCC) [N18.31] Hyperosmolar hyperglycemic state (HHS) (CMS/HCC) [E11.00, E11.65] Anemia [D64.9] Prolonged Q-T interval on ECG [R94.31] Non compliance w medication regimen [Z91.14] Plan: -Wean sedation as able and move towards SBT when appropriate -Lumbar puncture to evaluate for infectious cause of his obtundation and fevers -Continue empiric Pip/tazo and vancomycin -Nephrology consultation appreciated further management of his acute on chronic renal failure and severe metabolic derangements -Fortunately is making urine, no indication for emergent dialysis at this time -Monitor QT closely given his QT prolongation, likely a result of severe electrolyte derangements -Insulin drip for hyperglycemia and hyperosmolar state -Follow-up cultures from outside facility and here The condition of the patient indicated a high probability of deterioration and required critical care services. My time excluded minutes spent performing separately billable procedures and time spent treating other patients simultaneously. Critical Care Management included: Chart review, discussing with participating medical team, review of vital statistics, laboratories, radiographic studies,and prior records, current and previous medications, and current and previous treatment plans/orders. Total Critical Care time: 60 minutes. documented in this encounter Procedure Notes Dimas Townsend MD - 01/03/2022 6:13 PM PDTAssociated Order(s): Lumbar Puncture Diag Post-Procedure Diagnose(s): Acute metabolic encephalopathy Lumbar Puncture Diag Date/Time: 01/03/2022 6:13 PM Performed by: Dimas Townsend MD Authorized by: Dimas Townsend MD Consent: Written consent obtained. Risks and benefits: risks, benefits and alternatives were discussed Consent given by: parent Site marked: the operative site was marked Required items: required blood products, implants, devices, and special equipment available Patient identity confirmed: arm band, provided demographic data and hospital- assigned identificationnumber Time out: Immediately prior to procedure a "time out" was called to verify the correct patient, procedure, equipment, academic support center director and site/side marked as required. Indications: evaluation for infection and evaluation for altered mental status Anesthesia: local infiltration Anesthesia: Local Anesthetic: lidocaine 1% without epinephrine Anesthetic total: 5 mL Preparation: Patient was prepped and draped in the usual sterile fashion. Lumbar space: L3-L4 interspace Patient's position: left lateral decubitus Needle gauge: 18 Needle type: spinal needle - Quincke tip Needle length: 3.5 in Number of attempts: 1 Fluid appearance: clear Tubes of fluid: 4 Total volume: 12 ml Post-procedure: adhesive bandage applied Patient tolerance: patient tolerated the procedure well with no immediate complications documented in this encounter Consult Notes Khari Melendrez MD - 01/09/2022 2:54 PM PDTAssociated Order(s): O IP CONSULT AND TREAT Psychiatric Evaluation Patient Name: Mauri Levine PCP: Flo Peña MD Admitting Psychiatrist: Khari Jolley MD Date: 01/09/2022 3:07 PM ID/CC: The patient is a 36-year-old, , male with a history of depression, anxiety,and multiple medical problems related to diabetes. He was transferred to this facility for medical management of DKA, AKA, HTN, gastroparesis, brittle diabetes, encephalopathy, and ruling out meningitis. His physical and mental status have improved, but there is still concern that he suffers from an underlying depressive illness that is interfering with his functioning day to day and adherence to medical therapies. Psychiatric consultation was requested for diagnostic clarification, assessment of suicide risk, and treatment recommendations. Referring Physician: Dr. Clarice Merino HPI: The patient has suffered from depression and anxiety for many years. However, he has had an exacerbation in symptoms and poor adherence to treatment since his him last year. He moved [facility] on his parent's property, and has been increasingly isolated since then. His mother told the staff that he is living in "squalor", and does not engage in adequate self-care or treatment compliance. Thus, his physical and emotional state have continued to deteriorate, to the point that he required emergent transfer to this facility in case he needed dialysis and/or ICU care. Once here, he wassubsequently intubated and treated empirically with multiple antibiotics for a suspected meningitis after an LP with indeterminate findings. Despite recent antidepressant treatment, the patient has been experiencing persistent low mood, lossof interest and pleasure in his usual activities, fatigue, loss of drive and motivation, difficulty with short-term memory and concentration, indecisiveness, a decline in self-esteem, feelings of helple ssness/hopelessness/worthlessness, increased guilt feelings, insomnia, anorexia, increased anxiety, and occasional passive wishes. He has had fleeting suicidal thoughts but denied any actual preparations or attempts to end his life. He said that he has "generalized anxiety" symptoms, but no frequent panic attacks. He also denied having hallucinations or delusions associated with this depressiveillness. The patient was not a very good historian regarding specific psychotropic medications and doses thathe was taking in the past. A review of pharmacy data in the EMR indicated that in the past 2 years he has been treated with Luvox up to at least 100 mg or more daily, and with Prozac 20 mg daily. He was most recently prescribed Effexor XR 150 mg daily, which he said he had been taking fairly regularly(although his adherence is doubtful based on other factors of his history). He also has had past prescriptions for lorazepam and gabapentin for anxiety. Past Psychiatric History: Past Psychiatric Diagnoses: Depression, generalized anxiety. Past Psychiatric Hospitalization: Patient denies. Past suicide attempts or self-injurious behavior: Patient denies. Past psychiatric medication trials: See above. Substance Use History: The patient reported no substance abuse, but the veracity of his report is unknown at this time without corroboration from his mother. Social History: Patient was born and raised in the [place], [place] area by adoptive parents. He graduated from high school and attended a little bit of a 2-year college or trade school. He worked for 7 or 8 years as [employer], until going on Social Security disability about 5 years ago due to diabetes and multiple complications. He was with his for 7 or 8 years until she him last year. He has hada few good friends in the past, but almost no contact with them since his divorce. He lives in a camper on his parent's property, and says they are very supportive. He also has 2 cats or emotional support and companionship. Reports no criminal charges. Past Medical History: Active Hospital Problems Diagnosis Acute renal failure (ARF) (CMS/[facility]) [N17.9] Respiratory failure (CMS/[facility]) [J96.90] *Metabolic alkalosis [E87.3] Stage 3a chronic kidney disease ([facility]) [N18.31] Hyperosmolar hyperglycemic state (HHS) ([facility]) [E11.00, E11.65] Anemia [D64.9] Prolonged Q-T interval on ECG [R94.31] Non compliance w medication regimen [Z91.14] ROS: The patient has significant neurovegetative symptoms of depression, and numerous somatic complaints related to medical problems listed above. (See HPI). He denied having manic episodes, psychotic episodes, suicide attempts, or violence towards others. Family Psychiatric History: Unknown. The patient is adopted. Medications: Current Outpatient Medications Medication Instructions gabapentin (NEURONTIN) 300 MG Caps 300 mg, Oral, TID PRN venlafaxine (EFFEXOR XR) 150 MG Capsule SR 24 HR Prozac 20 mg 150 mg, Oral, DAILY 20 mg, oral, daily. Allergies: Prochlorperazine, Silver, Iodinated diagnostic agents, Nsaids, and Metoclopramide Code Status: Code Status: Full Code Labs/Imaging: Reviewed. Recent Results (from the past 72 hour(s)) POC Glucose Collection Time: 01/06/22 5:02 PM Result Value Ref Range Glucose (POC) 134 (H) 65 - 99 mg/dL POC Glucose Collection Time: 01/06/22 8:30 PM Result Value Ref Range Glucose (POC) 138 (H) 65 - 99 mg/dL POC Glucose Collection Time: 01/06/22 11:48 PM Result Value Ref Range Glucose (POC) 99 65 - 99 mg/dL Renal Profile Collection Time: 01/07/22 3:20 AM Result Value Ref Range Sodium 142 136 - 145 mmol/L Potassium 4.0 3.5 - 5.0 mmol/L Chloride 106 99 - 109 mmol/L CO2 25 23 - 33 mmol/L Anion Gap 11 5 - 16 ratio Creatinine 1.92 (H) 0.50 - 1.30 mg/dL BUN 42 (H) 8 - 25 mg/dL Glucose 63 (L) 65 - 99 mg/dL Calcium 8.5 8.5 - 10.2 mg/dL Phosphorus 3.8 2.3 - 4.8 mg/dL Albumin 2.9 (L) 3.5 - 5.0 g/dL Estimated Glomerular Filtration Rate (eGFR) 46 (L) >=60 mL/min/1.73 m2 Magnesium Collection Time: 01/07/22 3:20 AM Result Value Ref Range Magnesium 2.4 1.7 - 2.4 mg/dL CBC w/Auto Differential Collection Time: 01/07/22 3:20 AM Result Value Ref Range WBC 10.28 4.00 - 11.00 x10E3/uL RBC 4.22 (L) 4.30 - 5.70 x10E6/uL Hemoglobin 11.7 (L) 13.7 - 16.7 g/dL Hematocrit 36.0 (L) 40.0 - 50.0 % MCV 85.3 80.0 - 100.0 fL MCH 27.7 27.0 - 34.0 pg MCHC 32.5 31.5 - 35.7 g/dL RDW 13.2 11.0 - 15.0 % Platelet Count 184 150 - 400 x10E3/uL MPV 12.7 (H) 9.4 - 12.4 fL Neutrophils %, Automated 86.5 (H) 40.0 - 80.0 % Immature Granulocytes %, Automated 0.7 0.0 - 1.0 % Lymphocytes %, Automated 6.4 (L) 15.0 - 45.0 % Monocytes %, Automated 6.3 0.0 - 12.0 % Eosinophils %, Automated 0.0 0.0 - 7.0 % Basophils %, Automated 0.1 0.0 - 2.0 % Neutrophils Abs, Automated 8.89 (H) 2.00 - 7.30 x10E3/uL Immature Granulocyte Abs, Automated 0.07 (H) 0.00 - 0.05 x10E3/uL Lymphocytes Abs, Automated 0.66 (L) 1.00 - 3.40 x10E3/uL Monocytes Abs, Automated 0.65 0.00 - 0.80 x10E3/uL Eosinophils Abs, Automated <0.03 0.00 - 0.50 x10E3/uL Basophils Abs, Automated <0.03 0.00 - 0.10 x10E3/uL nRBC %, Automated 0.0 0.0 - 1.0 /100 WBC nRBC Abs, Automated 0.00 0.00 - 0.01 x10E3/uL Manual differential Collection Time: 01/07/22 3:20 AM Result Value Ref Range Platelet Estimate Confirm Automated Count RBC Morphology Confirm Red Cell Indicies POC Glucose Collection Time: 01/07/22 6:37 AM Result Value Ref Range Glucose (POC) 47 (L) 65 - 99 mg/dL POC Glucose Collection Time: 01/07/22 6:56 AM Result Value Ref Range Glucose (POC) 106 (H) 65 - 99 mg/dL POC Glucose Collection Time: 01/07/22 8:26 AM Result Value Ref Range Glucose (POC) 80 65 - 99 mg/dL POC Glucose Collection Time: 01/07/22 11:35 AM Result Value Ref Range Glucose (POC) 114 (H) 65 - 99 mg/dL POC Glucose Collection Time: 01/07/22 4:31 PM Result Value Ref Range Glucose (POC) 212 (H) 65 - 99 mg/dL POC Glucose Collection Time: 01/07/22 7:33 PM Result Value Ref Range Glucose (POC) 190 (H) 65 - 99 mg/dL POC Glucose Collection Time: 01/07/22 9:23 PM Result Value Ref Range Glucose (POC) 220 (H) 65 - 99 mg/dL Renal Profile Collection Time: 01/08/22 5:07 AM Result Value Ref Range Sodium 136 136 - 145 mmol/L Potassium 4.3 3.5 - 5.0 mmol/L Chloride 102 99 - 109 mmol/L CO2 24 23 - 33 mmol/L Anion Gap 10 5 - 16 ratio Creatinine 1.85 (H) 0.50 - 1.30 mg/dL BUN 43 (H) 8 - 25 mg/dL Glucose 229 (H) 65 - 99 mg/dL Calcium 8.2 (L) 8.5 - 10.2 mg/dL Phosphorus 3.8 2.3 - 4.8 mg/dL Albumin 2.9 (L) 3.5 - 5.0 g/dL Estimated Glomerular Filtration Rate (eGFR) 48 (L) >=60 mL/min/1.73 m2 Magnesium Collection Time: 01/08/22 5:07 AM Result Value Ref Range Magnesium 2.2 1.7 - 2.4 mg/dL CBC w/Auto Differential Collection Time: 01/08/22 5:07 AM Result Value Ref Range WBC 10.50 4.00 - 11.00 x10E3/uL RBC 4.03 (L) 4.30 - 5.70 x10E6/uL Hemoglobin 11.2 (L) 13.7 - 16.7 g/dL Hematocrit 34.6 (L) 40.0 - 50.0 % MCV 85.9 80.0 - 100.0 fL MCH 27.8 27.0 - 34.0 pg MCHC 32.4 31.5 - 35.7 g/dL RDW 13.0 11.0 - 15.0 % Platelet Count 172 150 - 400 x10E3/uL MPV 13.3 (H) 9.4 - 12.4 fL Neutrophils %, Automated 86.9 (H) 40.0 - 80.0 % Immature Granulocytes %, Automated 1.0 0.0 - 1.0 % Lymphocytes %, Automated 5.9 (L) 15.0 - 45.0 % Monocytes %, Automated 6.1 0.0 - 12.0 % Eosinophils %, Automated 0.0 0.0 - 7.0 % Basophils %, Automated 0.1 0.0 - 2.0 % Neutrophils Abs, Automated 9.12 (H) 2.00 - 7.30 x10E3/uL Immature Granulocyte Abs, Automated 0.11 (H) 0.00 - 0.05 x10E3/uL Lymphocytes Abs, Automated 0.62 (L) 1.00 - 3.40 x10E3/uL Monocytes Abs, Automated 0.64 0.00 - 0.80 x10E3/uL Eosinophils Abs, Automated <0.03 0.00 - 0.50 x10E3/uL Basophils Abs, Automated <0.03 0.00 - 0.10 x10E3/uL nRBC %, Automated 0.0 0.0 - 1.0 /100 WBC nRBC Abs, Automated 0.00 0.00 - 0.01 x10E3/uL POC Glucose Collection Time: 01/08/22 7:23 AM Result Value Ref Range Glucose (POC) 190 (H) 65 - 99 mg/dL POC Glucose Collection Time: 01/08/22 11:03 AM Result Value Ref Range Glucose (POC) 204 (H) 65 - 99 mg/dL POC Glucose Collection Time: 01/08/22 4:18 PM Result Value Ref Range Glucose (POC) 349 (H) 65 - 99 mg/dL POC Glucose Collection Time: 01/08/22 9:09 PM Result Value Ref Range Glucose (POC) 292 (H) 65 - 99 mg/dL Renal Profile Collection Time: 01/09/22 5:26 AM Result Value Ref Range Sodium 132 (L) 136 - 145 mmol/L Potassium 4.5 3.5 - 5.0 mmol/L Chloride 99 99 - 109 mmol/L CO2 22 (L) 23 - 33 mmol/L Anion Gap 11 5 - 16 ratio Creatinine 1.65 (H) 0.50 - 1.30 mg/dL BUN 42 (H) 8 - 25 mg/dL Glucose 453 (H) 65 - 99 mg/dL Calcium 7.9 (L) 8.5 - 10.2 mg/dL Phosphorus 3.5 2.3 - 4.8 mg/dL Albumin 2.9 (L) 3.5 - 5.0 g/dL Estimated Glomerular Filtration Rate (eGFR) 55 (L) >=60 mL/min/1.73 m2 Magnesium Collection Time: 01/09/22 5:26 AM Result Value Ref Range Magnesium 2.0 1.7 - 2.4 mg/dL CBC w/Auto Differential Collection Time: 01/09/22 5:26 AM Result Value Ref Range WBC 11.02 (H) 4.00 - 11.00 x10E3/uL RBC 4.10 (L) 4.30 - 5.70 x10E6/uL Hemoglobin 11.3 (L) 13.7 - 16.7 g/dL Hematocrit 35.0 (L) 40.0 - 50.0 % MCV 85.4 80.0 - 100.0 fL MCH 27.6 27.0 - 34.0 pg MCHC 32.3 31.5 - 35.7 g/dL RDW 12.8 11.0 - 15.0 % Platelet Count 200 150 - 400 x10E3/uL MPV 12.4 9.4 - 12.4 fL Neutrophils %, Automated 81.3 (H) 40.0 - 80.0 % Immature Granulocytes %, Automated 2.2 (H) 0.0 - 1.0 % Lymphocytes %, Automated 7.2 (L) 15.0 - 45.0 % Monocytes %, Automated 9.1 0.0 - 12.0 % Eosinophils %, Automated 0.0 0.0 - 7.0 % Basophils %, Automated 0.2 0.0 - 2.0 % Neutrophils Abs, Automated 8.97 (H) 2.00 - 7.30 x10E3/uL Immature Granulocyte Abs, Automated 0.24 (H) 0.00 - 0.05 x10E3/uL Lymphocytes Abs, Automated 0.79 (L) 1.00 - 3.40 x10E3/uL Monocytes Abs, Automated 1.00 (H) 0.00 - 0.80 x10E3/uL Eosinophils Abs, Automated <0.03 0.00 - 0.50 x10E3/uL Basophils Abs, Automated <0.03 0.00 - 0.10 x10E3/uL nRBC %, Automated 0.0 0.0 - 1.0 /100 WBC nRBC Abs, Automated 0.00 0.00 - 0.01 x10E3/uL POC Glucose Collection Time: 01/09/22 7:24 AM Result Value Ref Range Glucose (POC) 370 (H) 65 - 99 mg/dL POC Glucose Collection Time: 01/09/22 11:54 AM Result Value Ref Range Glucose (POC) 300 (H) 65 - 99 mg/dL MSE: APPEARANCE/BEHAVIOR: Poor grooming and hygiene. Cooperative. Good eye contact. Seemed sincere in hisresponses. GAIT: Not observed. Sitting comfortably on the edge of his bed. MUSCULOSKELETAL: No evidence of EPS, tics, or tremors. SPEECH: Normal rate, rhythm, and volume. AFFECT: Incongruent with his mood. He frequently seemed to be forcing a smile. MOOD: Depressed and anxious. THOUGHT PROCESS: Logical and linear. No looseness of associations. THOUGHT CONTENT: Denies current delusions or hallucinations. Denies active suicidal ideation, plan, or intent. ORIENTATION: Oriented to self, circumstances, and location. Knows approximate date. MEMORY: Immediate and remote recall were grossly intact. INTELLECTUAL FUNCTIONING: average. ATTENTION AND CONCENTRATION: Fairly good. JUDGMENT/INSIGHT: Adequate. Assessment/Formulation: The patient's genetic predisposition for depression and anxiety is unknown because he is adopted. However, he has had previously diagnosed depression and anxiety, that may have been partially treated with antidepressants, but not at full dosages. He has had multiple losses/stresses in the past year, and his current living situation is less than ideal, and seems to leave him with a variety of unmet needs. He has ongoing medical problems and physical suffering no doubt contribute to his depressive state and his anxiety. Lack of adherence to his treatment regimen we have also undermined treatment response. Diagnoses: 1. Major depressive disorder, recurrent, severe, without psychotic features. 2. Generalized anxiety disorder. 3. Delirium (encephalopathy) due to multiple medical problems, (resolving, but may still wax and wane). 4. Multiple medical problems as listed above. Treatment Plan/Recommendations: 1. The patient was educated regarding his psychiatric diagnoses, prognosis, and treatment options. He provided informed consent to the following recommendations. 2. Resume treatment with Effexor XR 150 mg daily. Depending on his recent level of adherence, that dosage will be increased to 225 mg daily. 3. Begin treatment with Remeron 15 mg nightly for augmentation of antidepressant treatment with Effexor, and support of better sleep and appetite. 4. Resume treatment with gabapentin 300 mg up to 3 times daily as needed for anxiety. (It is unclearhow beneficial this was to the patient, but it is worth a trial if needed). 5. Benzodiazepines will be avoided until more is known about whether or not he has had a problem with substance abuse in the past. 6. Psychiatry will provide concurrent care by consultation during his hospitalization, although psychiatric hospitalization is not currently indicated. Duration of Service: >75 minutes floor time (approximately 60 minutes with the patient). This note was created with the [employer] voice recognition software. It was reviewed after dictation but there may be mistakes inherent with this software that may have been missed. Please review carefully. Khari Jolley MD 01/09/2022 3:07 PM Mustapha Leonard, - 01/03/2022 4:25 PM PDT NEPHROLOGY CONSULTATION NOTE ASSESSMENT AND PLAN: 36-year-old male with diabetes mellitus type 1 presents the hospital with intractable nausea vomiting presumably secondary to diabetic gastroparesis. Hyperosmolar state, hypovolemia, volume contractionmetabolic alkalosis, hypokalemia, acute kidney injury on chronic kidney disease. 1) ROSALIO Prerenal hypovolemia seems most probable, perhaps some mild tubular injury as well though UA does not suggest this. Urine electrolytes pending Vigorous urine output this afternoon is encouraging Plan to continue to volume resuscitate and follow serial kidney function tests Continue LR at 150 ml/hr Would renal dose medications for GFR between 15 and 30 mL/min 2) Acid/Base Metabolic alkalosis, respiratory alkalosis Also has a high beta hydroxybutyrate level but does not appear to have a gap With volume resuscitation and increased distal sodium and chloride delivery this should turn off [id number] system and lead to correction of the volume contraction alkalosis Decrease loss of HCl from GI vomitus should also help We will continue to trend out total CO2 level 3) Hypokalemia, improving 3.1-->4.3 IV KCl per protocol, 40 mEq IV Continue to trend, K level should rise with correction of alkalosis and cellular shift 4) Chronic kidney disease, stage III-4 Normal kidney sizes with increased renal echogenicity on ultrasound Baseline serum creatinine around 1.7-[address] [place] in [place] Reason for consultation: ROSALIO on CKD, multiple electrolyte abnormalities. Consult requested by: Dr. Townsend History of present illness 36-year-old male with a history of type 1 diabetes mellitus, severe and refractory diabetic gastroparesis, frequent episodes of diabetic ketoacidosis, frequent hospitalizations, receiving care at [facility] who reported to the emergency department down there on 02 January with chief complaints of refractory nausea and vomiting. Apparently he had some trouble with his glucose monitor and his diabetes control has been questionable over the last several days as well. He was evaluated there and found to have multiple electrolyte abnormalities including a sugar level of 1381, lactate 4, potassium 3.2, sodium 117, creatinine 5.7, BUN 85, total CO2 37, chloride less than 60, beta hydroxybutyrate 216, white blood cell count 22. He also was noted to have respiratory compromise and cyanosis and was intubated for respiratory protection. Subsequently there was concern that he may require dialysis treatment and he was transferred to [facility] as [facility] apparently does not have dialysis services this weekend. Review of his chart shows a history of chronic kidney disease stage IV with a creatinine which had been around 1.7-2 range in the past. Apparently he follows with Dr. Mills at [facility]. The underlying kidney disease is presumably secondary to diabetic nephropathy. He has had previous episodes of acute kidney injury per the chart. At the time my review he is intubated and not responsive. Some movements in bilateral arms. Reviewedvitals flowsheets and labs, outside records in detail. Past Medical History: Diagnosis Date Anxiety Diabetic peripheral neuropathy (CMS/HCC) Esophageal candidiasis (CMS/HCC) Gastroparesis History of neuroleptic malignant syndrome Hyperlipidemia Hypertension Connie-Byrne tear Marijuana use, continuous Retinopathy due to secondary diabetes (CMS/HCC) Testosterone deficiency in male Type 1 diabetes mellitus with stage 3a chronic kidney disease (CMS/HCC) Past Surgical History: Procedure Laterality Date H/O HAND SURGERY P CORRECTION, HALLUX VALGUS W SESAMOIDECTOMY,W PROX METATARSALOTOMY, ANY METHOD Left Allergies: Prochlorperazine, Silver, Iodinated diagnostic agents, Nsaids, and Metoclopramide Current Facility-Administered Medications Medication Dose Route Frequency Provider Last Rate Last Admin chlorhexidine (PERIDEX) 0.12 % oral soln 15 mL 15 mL Mouth/Throat bid Dimas Townsend MD dextrose 50 % IV solution 25 mL 25 mL Intravenous PRN Dimas Townsend MD Famotidine (PF) (PEPCID) 10 mg/mL inj 20 mg 20 mg Intravenous daily Dimas Townsend MD 20 mg at 01/03/22 1445 fentaNYL citrate (SUBLIMAZE) 2500 MCG/50ML IV infusion 1-400 mcg/hr Intravenous titrate Dimas Townsend MD Held at 01/03/22 1345 heparin 5000 units/mL inj 5,000 Units 5,000 Units Subcutaneous q8h Dimas Townsend MD insulin regular (human) 100 units in NS 100 mL IV infusion 0.1 Units/kg/hr Intravenous titrate Dimas Townsend MD Held at 01/03/22 1345 lactated ringers (LR) infusion soln Intravenous continuous Dimas Chary Townsend MD 150 mL/hr at 01/03/22 1430 New Bag at 01/03/22 1430 piperacillin-tazobactam (ZOSYN) 3.375 g in 0.9 % NaCl (NS) 100 mL IV piggyback 3.375 g Intravenous q6h Dimas Townsend MD 200 mL/hr at 01/03/22 1608 3.375 g at 01/03/22 1608 potassium chloride (KCL) 20 MEQ/50ML IV piggyback 20 mEq 20 mEq Intravenous q1h Dimas Townsend MD 50 mL/hr at 01/03/22 1607 20 mEq at 01/03/22 1607 propofol 10 mg/mL inj 25-300 mcg/kg/min Intravenous continuous Dimas Townsend MD Held at 01/03/22 1400 vancomycin therapy indicator 1 Each 1 Each Other q24h PRN Dimas Townsend MD Family History Adopted: Yes Problem Relation Name Age of Onset Hypertension Mother Atrial fibrillation Mother Hypertension Father Colon Cancer Maternal Grandfather Breast Cancer Sister Social History Tobacco Use Smoking status: Former Smoker Types: Cigarettes Quit date: 02/12/2011 Years since quittin.8 Smokeless tobacco: Not on file Substance Use Topics Alcohol use: Not Currently Drug use: Yes Types: Marijuana Unable to perform review of systems due to patient medical condition. Physical Exam General: No acute distress, intubated, appears comfortable Eyes: Anicteric sclerae, conjunctiva pink HENT: Mucous membranes moist, no oral lesions noted Lungs: Coarse ventilator sounds bilaterally, normal respiratory effort CV: Regular rate and rhythm no murmurs clicks or rubs, no jugular venous distention Abdomen: Soft, non-tender; nondistended, bowel sounds present Extremities: Trace bilateral lower extremity pedal edema, no cyanosis Skin: Normal temperature, no rash noted on face or hands Vitals: 01/03/22 1400 01/03/22 1415 01/03/22 1430 01/03/22 1500 BP: 135/60 108/85 (!) 142/70 Pulse: 69 67 69 67 Resp: 20 18 18 21 Temp: (!) 102.6 F (39.2 C) TempSrc: Bladder SpO2: 99% 100% 100% 100% Weight: Laboratory and Diagnostic Data Labs in the last 24 hours Basic Metabolic Panel Collection Time: 01/03/22 1:28 PM Result Value Ref Range Sodium 135 (L) 136 - 145 mmol/L Potassium 3.1 (L) 3.5 - 5.0 mmol/L Chloride 83 (L) 99 - 109 mmol/L CO2 40 (H) 23 - 33 mmol/L Anion Gap 12 5 - 16 ratio Creatinine 4.99 (H) 0.50 - 1.30 mg/dL BUN 71 (H) 8 - 25 mg/dL Glucose 369 (H) 65 - 99 mg/dL Calcium 6.8 (L) 8.5 - 10.2 mg/dL Estimated Glomerular Filtration Rate (eGFR) 15 (L) >=60 mL/min/1.73 m2 Prothrombin Time (PT) and Partial Thromboplastin Time (PTT) Collection Time: 01/03/22 1:28 PM Result Value Ref Range Protime 13.8 11.6 - 14.7 seconds INR 1.1 0.9 - 1.2 ratio aPTT 32.6 23.5 - 34.6 seconds Lactic Acid, Venous Collection Time: 01/03/22 1:28 PM Result Value Ref Range Lactic Acid, Venous 2.9 (H) 0.5 - 2.2 mmol/L Magnesium Collection Time: 01/03/22 1:28 PM Result Value Ref Range Magnesium 3.4 (HH) 1.7 - 2.4 mg/dL Phosphorus Collection Time: 01/03/22 1:28 PM Result Value Ref Range Phosphorus 4.2 2.3 - 4.8 mg/dL CBC w/Auto Differential Collection Time: 01/03/22 1:28 PM Result Value Ref Range WBC 14.29 (H) 4.00 - 11.00 x10E3/uL RBC 3.79 (L) 4.30 - 5.70 x10E6/uL Hemoglobin 10.5 (L) 13.7 - 16.7 g/dL Hematocrit 31.5 (L) 40.0 - 50.0 % MCV 83.1 80.0 - 100.0 fL MCH 27.7 27.0 - 34.0 pg MCHC 33.3 31.5 - 35.7 g/dL RDW 13.1 11.0 - 15.0 % Platelet Count 175 150 - 400 x10E3/uL MPV 12.8 (H) 9.4 - 12.4 fL Neutrophils %, Automated 83.8 (H) 40.0 - 80.0 % Immature Granulocytes %, Automated 0.5 0.0 - 1.0 % Lymphocytes %, Automated 5.7 (L) 15.0 - 45.0 % Monocytes %, Automated 9.9 0.0 - 12.0 % Eosinophils %, Automated 0.0 0.0 - 7.0 % Basophils %, Automated 0.1 0.0 - 2.0 % Neutrophils Abs, Automated 11.97 (H) 2.00 - 7.30 x10E3/uL Immature Granulocyte Abs, Automated 0.07 (H) 0.00 - 0.05 x10E3/uL Lymphocytes Abs, Automated 0.82 (L) 1.00 - 3.40 x10E3/uL Monocytes Abs, Automated 1.42 (H) 0.00 - 0.80 x10E3/uL Eosinophils Abs, Automated <0.03 0.00 - 0.50 x10E3/uL Basophils Abs, Automated <0.03 0.00 - 0.10 x10E3/uL nRBC %, Automated 0.0 0.0 - 1.0 /100 WBC nRBC Abs, Automated 0.00 0.00 - 0.01 x10E3/uL CK Collection Time: 01/03/22 1:28 PM Result Value Ref Range CK 662 (H) 55 - 400 U/L TSH Collection Time: 01/03/22 1:28 PM Result Value Ref Range Thyroid-Stimulating Hormone (TSH) 0.33 0.27 - 4.20 uIU/mL Hemoglobin A1c Collection Time: 01/03/22 1:28 PM Result Value Ref Range Hemoglobin A1c 8.4 (H) 4.2 - 5.6 % Estimated Average Glucose (EAG) 194 mg/dL Hepatic Function Panel Collection Time: 01/03/22 1:28 PM Result Value Ref Range Total Protein 5.6 (L) 6.3 - 8.0 g/dL Albumin 3.0 (L) 3.5 - 5.0 g/dL Globulin 2.6 1.8 - 3.5 g/dL Albumin/Globulin Ratio 1.2 1.0 - 2.7 ratio Total Bilirubin 0.3 0.1 - 1.5 mg/dL Direct Bilirubin <0.2 0.0 - 0.4 mg/dL ALT 28 10 - 65 U/L Alk Phos 107 35 - 115 U/L AST 52 (H) 10 - 45 U/L Lipase Collection Time: 01/03/22 1:28 PM Result Value Ref Range Lipase 135 (H) 7 - 60 U/L POC Blood Gas, Arterial Collection Time: 01/03/22 1:30 PM Result Value Ref Range pH, Arterial (POC) 7.61 (HH) 7.35 - 7.45 pH, Arterial (Temp Corrected) (POC) pCO2, Arterial (POC) 38 35 - 45 mmHg pCO2, Arterial (Temp Corrected) (POC) pO2, Arterial (POC) 81 70 - 90 mmHg pO2, Arterial (Temp Corrected) (POC) TCO2, Arterial (POC) 40 (H) 21 - 28 mmol/L O2 Sat, Arterial (POC) 97.7 94 - 98 % Base Excess, Arterial (POC) 15.9 (H) -2 - 2 mmol/L HCO3, Arterial (POC) 38.6 (H) 21 - 27 mmol/L Pt. Respiratory Rate (POC) 18 Liters/Minute (POC) Mode (POC) AC FIO2 (POC) 30.0 Peep (POC) 5 Tidal Volume (POC) 420 Delivery System (POC) Adult Vent Set Respiratory Rate (POC) Peak Inspiratory Pressure (POC) Inspiratory Time (POC) Pressure Support (POC) Patient Temp (POC) POC ChemStat Collection Time: 01/03/22 1:30 PM Result Value Ref Range Sodium (POC) 133 (L) 135 - 145 mmol/L Potassium (POC) 2.9 (L) 3.5 - 5.0 mmol/L Chloride (POC) 84 (L) 99 - 109 mmol/L Creatinine (POC) 5.4 (H) 0.5 - 1.3 mg/dL eGFR (POC) 12 Glucose (POC) 347 (H) 65 - 99 mg/dL Ionized Calcium (POC) 3.30 (L) 4.75 - 5.30 mg/dL Hemoglobin (POC) 11.2 (L) 13.7 - 16.7 g/dL Hematocrit (POC) 33.0 (L) 40.0 - 50.0 % POC Lactic Acid (Lactate) Collection Time: 01/03/22 1:30 PM Result Value Ref Range Lactic Acid (POC) 2.4 (H) 0.5 - 2.2 mmol/L Urinalysis w/Microscopic and Culture if Indicated Collection Time: 01/03/22 1:48 PM Result Value Ref Range Color Yellow Straw, Yellow, Light Yellow, Dark Yellow Clarity, Urine Clear Clear Specific Jay, Urine 1.015 1.005 - 1.030 pH, Ur 8.5 (H) 5.0 - 7.5 pH unit Protein, Urine 100 (A) Negative mg/dL Glucose, Ur 250 (A) Negative mg/dL Ketones, Ur Negative Negative mg/dL Occult blood Moderate (A) Negative Bilirubin Negative Negative Leukocyte Esterase, Ur Negative Negative Nitrite, Ur Negative Negative Urobilinogen, Urine 0.2 0.2, 1.0 mg/dL RBC, Urine 1 <3.0 /HPF WBC, Ur 1 <6 /HPF Squamous Epithelials, Ur 0 <=8 /HPF Bacteria None Seen None Seen /HPF Urine Drug Screen Collection Time: 01/03/22 1:48 PM Result Value Ref Range Amphet/Methamphet Screen, [...] Random Positive (A) Negative Creatinine, Urine Random 34.2 None Established mg/dL POC Glucose Collection Time: 01/03/22 3:07 PM Result Value Ref Range Glucose (POC) 346 (H) 65 - 99 mg/dL POC Potassium Collection Time: 01/03/22 4:06 PM Result Value Ref Range Potassium (POC) 4.3 3.5 - 5.0 mmol/L POC Glucose Collection Time: 01/03/22 4:06 PM Result Value Ref Range Glucose (POC) 446 (H) 65 - 99 mg/dL POC Lactic Acid (Lactate) Collection Time: 01/03/22 4:06 PM Result Value Ref Range Lactic Acid (POC) 1.6 0.5 - 2.2 mmol/L Available imaging results reviewed. Renal ultrasound performed today, right kidney 10.4 cm, left kidney 9.5 cm, increased renal echogenicity. No hydronephrosis. documented in this encounter Miscellaneous Notes Patient Communication - Clarice Merino DO - 01/11/2022 4:15 PM PDT [facility] After Care Call Facility: [facility] Program: Inpatient Transitions VisitNum: [id number] FirstName: Mauri MiddlName: Elvin LastName: Levine Suffix: Primary Phone: [phone] : [phone] Gender: Male AdmitDate: [id number] VisitType: IN DischDate: [id number] DischDoc: Robert Matthews [id number] DischStatus: 06 DischUnit: KH1N LatestStatus: No Answer CalledOn: [id number] HealthSinceLeftFac: HealthSinceLeftFacAlertOn: HealthSinceLeftFacHandOn: HealthSinceLeftFacHandBy: CareInstructionQuestion: CareInstQuestionAlertOn: CareInstQuestionHandOn: CareInstQuestionHandBy: NewMedsPrescribed: PrescriptionsFilled: NotAbletoFillPrescription: NotAbletoFillPrescriptionAlertOn: NotAbletoFillPrescriptionHandOn: NotAbletoFillPrescriptionHandBy: MedicationQuestion: MedicationQuestionAlertOn: MedicationQuestionHandOn: MedicationQuestionHandBy: InstructedtoScheduleAppt: HasApptScheduled: MayNotAttendAppt: MayNotAttendApptAlertOn: MayNotAttendApptHandOn: MayNotAttendApptHandBy: SatisfactionWithCare: SatisfactionWithCareAlertOn: SatisfactionWithCareHandOn: SatisfactionWithCareHandBy: NeedNurseToCall: NeedNurseToCallAlertOn: NeedNurseToCallHandOn: NeedNurseToCallHandBy: Recognition2: Recognition: Note1: Ovxn5MilfofhFb: Pxud7XkrtVe: Note2: Afmf4KhmasauHf: Vdxq9IxndQj: Note3: Epth1AuafwncHd: Uyut3NayjssnTq: Nursing Notes - Tran Marcano RN - 01/11/2022 3:20 PM PDT RN went through discharge paperwork with patient and mother at bedside. Patient had no further questions for RN. IV removed, PORT deaccessed and hep locked, BS checked which did not meet MD parameter to put insulin pump back on before leaving. RN explained to patient to check sugar again per normal routine and go from there. Patient stable no other concerns at this time. Care Plan Notes - Autumn Adamson - 01/11/2022 2:45 PM PDT [facility] Discharge Discharge Disposition: home with [facility] health Discharge DME: no additonal DME needs for discharge. Transport: POV Medication needs at discharge: None Rx sent to [facility] . IM/[facility] dc copy delivered: IM letter discussed w/pt at bedside. 4Hr rule explained and a copy of theletter provided. Care Plan Notes - Cristy Glover, OT - 01/11/2022 9:42 AM PDT Images from the original note were not included. Occupational Therapy Treatment Recommendations for Nursing: Patient should utilize bathroom for bathroom needs, with Stand-by Assist of 1 person(s). Encourage daily performances of self care tasks with assistance as needed. Patient is being seen today for Occupational Therapy Treatment and is agreeable to session. Patient appropriate for continued skilled acute care OT to maximize function, safety, and independence?: Yes- will continue to assess needs and progress mobility as able. Overall Function: Pt continues to make progress with therapy. He appears close to his baseline levelof functioning. He completed g/h tasks and toileting tasks with supervision and FWW. Throughout the session he was trialed off the FWW and demonstrated appropriate dynamic and static standing balance. Completed kitchen management tasks of reaching various planes and navigating various appliances. Pt was taken to the 2E gym and on the way to room pt had 2 bouts of emasis (RN notified) BP taken and remains unremarkable from the start of the session. Pt displays appropriate level of functioning that isconsistent with home with intermittent check in. Based on clinical judgement within scope of OT Practice, OT Discharge Recommendation: Intermittent supervision/assist/check-in;Home with assist (home with intermittent check in). Does patient have appropriate support to discharge to prior living situation: No;needs help with medication management;concern for safety/cognition;needs help with home making;needs help with meal preparation;needs help with driving;needs help with dressing;needs help with ADLs daily;needs help with bathing Does patient have recommended equipment: Defer to next level of care Therapy Precautions: Other precautions: Falls Comments: droplet Default Flowsheet Data (last 12 hours) OT Treatment Row Name 01/11/22 0942 General info Bed/Chair Alarm Placed Yes Handoff Post Therapy Session -- charge nurse Subjective Comments Subjective Comments Pt found in bed sitting up eating breakfast. Pt was agreeable to therapy session. Pt's mother present at the inital start of the session however left at the start of therapy. Pain Comments no complaints Vitals BP 156/101 post session 151/101 Cognition Arousal/Alertness Within functional limits Attention Span Attends with cues to redirect Memory Appears intact/WFL Following Commands Follows one step commands with increased time;Follows one step commands with repetition Problem Solving Assistance required to generate solutions Bed Mobility Supine to Sit Supervision Sit to Supine Independent Transfers Sit To/From Stand SBA Toilet Supervision Assistive Device FWW ADL Feeding Independent;Bed Grooming Supervision Toileting Supervision Functional Mobility Distance Household distances Assistance Level SBA Comments Pt was trialed with and without FWW. Pt demonstrates appropriate balance without walker. Balance Sitting Balance - Static Good Sitting Balance - Dynamic Good Standing Balance - Static Good Standing Balance - Dynamic Good Education Education Provided falls prevention;energy conservation;home safety;importance of mobility Pt/family provided info re: abilities and prognosis Yes Pt/family understand precautions/limitations Yes Overall Assessment Impairment in Function Balance Deficits;Impaired Cognitive Capacities;Impaired Coordination;Impaired Endurance;Impaired Strength;Reduced Safety Awareness Activity Limitations Activity Intolerance;Impaired ADLs;Impaired Bed Mobility;Impaired Cognitive Communication;Impaired Functional Transfers;Impaired Gait Overall Function Pt continues to make progress with therapy. He appears close to his baseline levelof functioning. He completed g/h tasks and toileting tasks with supervision and FWW. Throughout the session he was trialed off the FWW and demonstrated appropriate dynamic and static standing balance. Completed kitchen management tasks of reaching various planes and navigating various appliances. Pt was taken to the 2E gym and on the way to room pt had 2 bouts of emasis (RN notified) BP taken and remains unremarkable from the start of the session. Pt displays appropriate level of functioning that isconsistent with home with intermittent check in. Prognosis for OT Goals Good Patient appropriate for continued skilled acute care OT to maximize function, safety, and independence? Yes- will continue to assess needs and progress mobility as able. Progress Progress Progressing toward goals Recommendations OT Discharge Recommendation Intermittent supervision/assist/check-in;Home with assist home with intermittent check in Plan for Next Session functional mobility consistent with camper to house to complete ADL's. Goals [facility] Goal Met Toileting Clothing Management Goal Met Self Feeding Goal Met AM-PAC Daily Activity Inpatient Lower body dressing 3 Bathing 3 Toileting 3 Upper Body Dressing 3 Grooming 4 Eating 4 Daily Activity Inpatient Raw Score 20 Daily Activity Inpatient T-Scale Score 42.03 Daily Activity CMS 0-100% Score 38.32 Daily Activity CMS G-Code Modifier CJ Plan Treatment Interventions: Self-Care/Home Training, Therapeutic Activities/transfer training, Therapeutic Exercise Frequency: (1 more session) Session time start: 941 Session time end: 1022 Cristy Glover OT Problem: Self-care Deficit Goal: Able to perform required activities of daily living Outcome: Adequate for discharge Care Plan Notes - Kayley Cullen, PT - 01/11/2022 9:40 AM PDT Problem: Mobility - Impaired Goal: Able to perform prescribed physical activity Outcome: Progressing Physical Therapy Treatment Recommendations for Nursing: Patient should sit up in the chair for all meals. Should ambulate with gait belt, front wheeled walker, and 1 person assistance, 3 times daily. Encourage patient to ambulate hallway distances. Progress mobility as able. Patient is being seen today for Physical Therapy Treatment and is agreeable to session. Patient appropriate for continued skilled acute care PT to maximize function, safety, and independence?: Yes- will continue to assess needs and progress mobility as able. Overall Function: Pt is making progress towards therapy goals, tolerating gait with and without FWW in today's session, car transfer, and stair training. Reports some lightheadedness with mobility, becoming nauseous during last part of the session. Pt overall requires up to CGA for safety, demonstrating increased sway with standing and gait. Pt reports he feels he is almost at his baseline. Would benefit from additional therapy services to address deficits for safe return home. Based on clinical judgement within scope of PT Practice, PT Discharge Recommendation: Home with assist;Intermittent supervision/assist/check-in. Does patient have appropriate support to discharge to prior living situation: No- needs increase caregiver assistance Recommended equipment for discharge: FWW Does patient have recommended equipment: No- will need prior to discharge from facility Therapy Precautions: Other precautions: Falls Comments: droplet Default Flowsheet Data (last 12 hours) PT Treatment Row Name 01/11/22 0844 General info Bed/Chair Alarm Placed Yes Handoff Post Therapy Session Verbal hand-off to RN completed Subjective Comments Subjective Information Pt in supine at the start of the session, agreeable to participate in therapy. Vitals BP 140s and 150s systolic Comments Pt reports lightheadedness with mobility, becoming nauseous with mobility. Bed Mobility Supine to Sit Modified Independent;HOB elevated Sit to Supine Modified Independent;HOB elevated Comments Pt able to perform bed mobility without difficulty. Transfers Sit to Stand SBA Stand to Sit SBA Car SBA Assistive Device FWW;None Comments Pt able to perform transfers with and without FWW, requiring verbal cues for safety when using FWW. Ambulation Distance (feet) 10' x 3 Assistance Level CGA Assistive Device FWW;None Gait Characteristics R Decreased step length;L Decreased step length;L Decreased foot clearance;R Decreased foot clearance;Decreased Pace Comments Pt performs short bouts of gait with and without FWW, demonstrating similar gait pattern and pacing. Stairs Number of Stairs 4 Assistance Level CGA Railing Bilateral Technique Reciprocal Comments Pt demonstrates decreased pacing, requiring verbal cues for problem solving Balance Sitting Balance - Static Good Sitting Balance - Dynamic Good Standing Balance - Static Good Standing Balance - Dynamic Fair Descriptive Comments Demonstrates slight increase in sway during gait without FWW. Education Education Provided body mechanics Pt/family provided info re: abilities and prognosis Yes;Additional Education Needed Pt/family understand precautions/limitations Yes;Additional Education Needed Progress (Overall) Progress Progressing toward goals Overall Assessment Impairment in Function Balance Deficits;Impaired Cognitive Capacities;Impaired Endurance;Impaired Strength Activity Limitations Activity Intolerance;Impaired Bed Mobility;Impaired Gait;Impaired Transfers;Impaired Stair Climbing Overall Function Pt is making progress towards therapy goals, tolerating gait with and without FWW in today's session, car transfer, and stair training. Reports some lightheadedness with mobility, becoming nauseous during last part of the session. Pt overall requires up to CGA for safety, demonstrating increased sway with standing and gait. Pt reports he feels he is almost at his baseline. Would benefit from additional therapy services to address deficits for safe return home. Prognosis for PT Goals Good Factors Limiting Discharge Severity of Impairments;Co-Moribitities Patient appropriate for continued skilled acute care PT to maximize function, safety, and independence? Yes- will continue to assess needs and progress mobility as able. Recommendations PT Discharge Recommendation Home with assist;Intermittent supervision/assist/check-in Does patient have appropriate support to discharge to prior living situation No- needs increase caregiver assistance Recommended equipment for discharge FWW Does patient have recommended equipment No- will need prior to discharge from facility PT Plan for Next Session dynamic balance and gait PT - OK to Discharge (Discharge Milestone Signoff) Yes Goals Goals Remain Appropriate Yes AM-PAC Basic Mobility Inpatient Turning in Bed Without Bedrails 3 Lying on Back to Sitting on Edge of Flat Bed 3 Moving Bed to Chair 3 Standing up From Chair 3 Walk in Room 3 Climbing 3-5 Steps 3 Mobility Inpatient Raw Score 18 Session time start: 939 Session time end: 1022 Kayley Cullen, PT Care Plan Notes - Avani Easton RN - 01/11/2022 5:42 AM PDT A&Ox4, VS WNL except BP was elevated, hydralazine given x1, on RA. No reports of pain. Bed in the lowest position, wheels locked, bed alarm on, hourly rounding completed, will continue to monitor. Problem: Skin Integrity - Risk of, Impaired Goal: Skin integrity intact Outcome: Progressing Problem: Mobility - Impaired Goal: Able to perform prescribed physical activity Outcome: Progressing Nursing Notes - Tran Marcano RN - 01/10/2022 3:39 PM PDT Per MD patient is to set up own insulin pump, check sugars, and be responsibility for sugar management. RN is to assess wether further teaching is needed. Patient successfully set pump administration details to 1 unit of Humalog per hour, patient primed pump, and administered pump on right side of lower abdomen. RN consulted with pharmacy about rate and type of insulin prior to letting patient administer. Patient explained process to RN, and is alert and orientedX4. Nursing Notes - Lindsay Roberts RN, BSN - 01/10/2022 4:04 AM PDT Pt is A&Ox4, VSS, on RA, denies pain, chest pain, n/v, SOB, and numbness/tingling. Pt has right chest port that is CDI and has good blood return. Pt also has PIV that is saline locked and CDI. Pt is calm and cooperative with cares. Pt is slightly withdrawn during interactions. Pt received IV antibiotics this shift, pt has tolerated well and had no complications. Pt BG WNL at this time. Pt has call light within reach and safety measures in place. Will continue proactive rounding to ensure pt safety. Care Plan Notes - Stiven Hylton RN - 01/09/2022 6:55 PM PDT Problem: Skin Integrity - Risk of, Impaired Goal: Skin integrity intact Outcome: Progressing Problem: Safety, Immediate Risk to Self or Others - Adult/Ped (Restraints) Goal: Absence of harm to self and others Outcome: Progressing Problem: Mobility - Impaired Goal: Able to perform prescribed physical activity Outcome: Progressing Care Plan Notes - Charissa Warren RN - 01/09/2022 6:06 AM PDT Problem: Skin Integrity - Risk of, Impaired Goal: Skin integrity intact Outcome: Progressing Problem: Safety, Immediate Risk to Self or Others - Adult/Ped (Restraints) Goal: Absence of harm to self and others Outcome: Progressing Problem: Discharge Planning Goal: Participation and Acceptance of Discharge arrangements Outcome: Progressing Problem: Mobility - Impaired Goal: Able to perform prescribed physical activity Outcome: Progressing Problem: Self-care Deficit Goal: Able to perform required activities of daily living Outcome: Progressing Problem: Swallowing - Impaired Goal: Absence of aspiration Outcome: Progressing Care Plan Notes - Bina Thorne RD - 01/08/2022 3:46 PM PDT Nutrition Assessment Nutrition Problems: Problem: Inadequate protein-energy intake Etiology: Inability to consume sufficient protein/energy; altered GI tract structure/function, e.g.,gastroparesis Signs & Symptoms: AMS, poor appetite, weight loss Interventions: -Daily Glucerna supplementation -Re-assessed nutrient needs as pt no longer requiring critical care Current Diet Order: Controlled carb 60 gm, thin liquids Assessment: Diet advanced to controlled carb diet. Pt consumed 50-100% of meals since diet advancement per I/O graphics. Pt also consuming his Glucerna supplement. Stooling noted. Nutrition Focused Physical Exam: (Date: 01/06/22) Mild muscle wasting to quadriceps BLE edema Anthropometrics: UBW: unable to obtain IBW: 63.6-77.8 kg (70.7 kg) Estimated needs: Kcals: 9351-1097 kcals/d (25-30 kcal/kg ABW (69.3 kg)) Protein: 69-83g/d (1-1.2 g/kg ABW (69.3 kg)) Fluid: 25-30 ml/kg ABW Monitoring and Evaluation: Pt to consume >50% of meals/ONS during admit -- goal achieved Care Plan Notes - Blaze De La Torre RN - 01/08/2022 2:30 PM PDT Pt A/O 3-4, forgetful, elevated BP( MD aware), denies any pain. Compliant with the POC. Port in place, good blood return. Reported good appetite, able to void. Able to get up and walk with CGA. Care Plan Notes - Ita Lilly OT - 01/08/2022 2:18 PM PDT Images from the original note were not included. Problem: Self-care Deficit Goal: Able to perform required activities of daily living Outcome: Progressing Problem: Mobility - Impaired Goal: Able to perform prescribed physical activity Outcome: Progressing Occupational Therapy Treatment Recommendations for Nursing: Patient should utilize bathroom for bathroom needs, with Contact Guard Assist of 1 person(s). Encourage daily performances of self care tasks with assistance as needed. AmbTID w/staff. Patient is being seen today for Occupational Therapy Treatment and is agreeable to session. Patient appropriate for continued skilled acute care OT to maximize function, safety, and independence?: Yes- will continue to assess needs and progress mobility as able. Overall Function: Pt tolerated toileting and grooming tasks, followed by 200' walk. He demonstrated significant impairments in attention to detail, safety awareness, and problem solving. Based on clinical judgement within scope of OT Practice, OT Discharge Recommendation: Needs assist with all mobility/ADLs;Needs assist due to cognition/mentation;Able to tolerate 3 hours of therapy. Does patient have appropriate support to discharge to prior living situation: No;needs help with medication management;concern for safety/cognition;needs help with home making;needs help with meal preparation;needs help with driving;needs help with dressing;needs help with ADLs daily;needs help with bathing Does patient have recommended equipment: Defer to next level of care Therapy Precautions: Other precautions: Falls Comments: droplet Default Flowsheet Data (last 12 hours) OT Treatment Row Name 01/08/22 1418 General info Bed/Chair Alarm Placed Yes Handoff Post Therapy Session No concerns to communicate Subjective Comments Subjective Comments Pt agreeable to OT session. He denied pain. Pain Pre-Session Rating 0 Post-Session Rating 0 Vitals HR 55 after 200' walk and 1 min seated rest. SpO2 95 after 200' walk. Oxygen Device/Source None (Room Air) Cognition Arousal/Alertness Delayed responses to stimuli Decreased awareness of surroundings/potential fall hazards Attention Span Attends with cues to redirect Orientation Oriented x 3 Following Commands Follows one step commands consistently Safety Judgement Decreased awareness of deficits;Impulsive Pt at high risk for falls, seemed unaware he was attached to IV and multiple times tried to turn in a direction that it would've gotten wrapped around him. He needed cues to become aware of this each time he turned. Problem Solving Assistance required to generate solutions;Assistance required to identify errors made;Assistance required to implement solutions Bed Mobility Supine to Sit Supervision HOB flat, no bed rail needed. Supervision to avoid pulling on IV (accidentally) Sit to Supine Supervision HOB flat, no bed rail needed. Supervision to avoid pulling on IV (accidentally). Transfers Sit To/From Stand CGA;Cues for precautions;Cues for safety;Cues for problem solving Retropulsive. Toilet CGA;Cues for problem solving;Cues for safety;Cues for precautions Poorly controlled descent. Assistive Device Gait Belt;FWW ADL Grooming Contact Guard Assist;standing;Cues for problem solving;Cues for safety FWW/counter for support. Toileting Contact Guard Assist;Cues for precautions;Cues for safety;Cues for problem solving Functional Mobility Distance Community distances 200' Assistance Level Leigh;CGA;Cues for precautions;Cues for safety;Cues for problem solving 2 incidentsof severe lateral/posterior LOB requiring min A by OT to correct. Very narrow FABRICE. Assistive Device FWW;Gait Belt Balance Sitting Balance - Static Good Sitting Balance - Dynamic Fair Standing Balance - Static Poor Lateral/posterior LOB, even with FWW. Standing Balance - Dynamic Poor FWW Education Education Provided falls prevention;home safety;importance of mobility;transfer techniques Pt/family provided info re: abilities and prognosis Yes;Additional Education Needed Pt/family understand precautions/limitations Additional Education Needed Overall Assessment Impairment in Function Balance Deficits;Impaired Cognitive Capacities;Impaired Coordination;Impaired Endurance;Impaired Strength;Reduced Safety Awareness Activity Limitations Activity Intolerance;Impaired ADLs;Impaired Bed Mobility;Impaired Cognitive Communication;Impaired Functional Transfers;Impaired Gait Overall Function Pt tolerated toileting and grooming tasks, followed by 200' walk. He demonstrated significant impairments in attention to detail, safety awareness, and problem solving. Prognosis for OT Goals Good Factors Limiting Discharge Limited Caregiver Support;Inaccessible Living Environment;Severity of Impairments;Co-Moribitities Patient appropriate for continued skilled acute care OT to maximize function, safety, and independence? Yes- will continue to assess needs and progress mobility as able. Progress Progress Progressing toward goals Recommendations OT Discharge Recommendation Needs assist with all mobility/ADLs;Needs assist due to cognition/mentation;Able to tolerate 3 hours of therapy Does patient have appropriate support to discharge to prior living situation No;needs help with medication management;concern for safety/cognition;needs help with home making;needs help with meal preparation;needs help with driving;needs help with dressing;needs help with ADLs daily;needs help with bathing Does patient have recommended equipment Defer to next level of care Plan for Next Session Advance ADL/functional mobility as tolerated. OT - OK to Discharge (Discharge Milestone Signoff) Yes Goals Goals Remain Appropriate Yes AM-PAC Daily Activity Inpatient Lower body dressing 3 Bathing 3 Toileting 3 Upper Body Dressing 3 Grooming 3 Eating 3 Daily Activity Inpatient Raw Score 18 Daily Activity Inpatient T-Scale Score 38.66 Daily Activity CMS 0-100% Score 46.65 Daily Activity [facility] G-Code Modifier CK Plan Treatment Interventions: Self-Care/Home Training, Cognitive Skills and/or assessment, Therapeutic Activities/transfer training, Therapeutic Exercise Frequency: 1x/day for 5-7 days/week for duration of hospital stay or until goals met Session time start: 1417 Session time end: 1450 Ita Lilly OT 01/08/2022 Care Plan Notes - Kayley Cullen, PT - 01/08/2022 10:34 AM PDT Problem: Mobility - Impaired Goal: Able to perform prescribed physical activity Outcome: Progressing Physical Therapy Treatment Recommendations for Nursing: Patient should sit up in the chair as tolerated daily. Should ambulate with gait belt, front wheeled walker, and 1 person assistance, 3+ times daily. Encourage patient to ambulate hallway distances. Progress mobility as able. Patient is being seen today for Physical Therapy Treatment and is agreeable to session. Patient appropriate for continued skilled acute care PT to maximize function, safety, and independence?: Yes- will continue to assess needs and progress mobility as able. Overall Function: Pt making progress towards therapy goals, tolerating increasing ambulation distances using FWW in today's session in the hallway. Demonstrates decreased speed overall with narrow FABRICE,requiring verbal cues for safe navigation of the environment. Pt requests to return to supine to rest. Would benefit from additional therapy services to address deficits to maximize functional status. Based on clinical judgement within scope of PT Practice, PT Discharge Recommendation: Able to tolerate 3 hours of therapy. Does patient have appropriate support to discharge to prior living situation: No- needs help with mobility;No- concern for safety/cognition;No- needs increase caregiver assistance Does patient have recommended equipment: Defer to next level of care Therapy Precautions: Other precautions: Falls Comments: droplet Default Flowsheet Data (last 12 hours) PT Treatment Row Name 01/08/22 1034 General info Bed/Chair Alarm Placed Yes Subjective Comments Subjective Information Pt in supine at the start of the session, agreeable to participate in therapy. Vitals BP 160s systolic seated Bed Mobility Supine to Sit SBA;HOB elevated Sit to Supine SBA;HOB elevated Transfers Sit to Stand CGA Stand to Sit CGA Assistive Device FWW;Gait Belt Comments Verbal reminders for safe hand placement with initial posterior lean requiring Min A to correct. Ambulation Distance (feet) 100 Assistance Level CGA Assistive Device FWW;Gait Belt Gait Characteristics R Decreased step length;L Decreased step length;R Decreased foot clearance;L Decreased foot clearance;Decreased Pace;Narrow Base of Support Comments Pt demonstrates decreased speed overall, reporting mild dizziness and requesting to returnto the room. Balance Sitting Balance - Static Good Sitting Balance - Dynamic Good Standing Balance - Static Good Standing Balance - Dynamic Fair Performance Fatigues quickly Descriptive Comments Maintains standing balance using FWW with up to CGA for steadying. Education Education Provided body mechanics Pt/family provided info re: abilities and prognosis Yes;Additional Education Needed Pt/family understand precautions/limitations Yes;Additional Education Needed Progress (Overall) Progress Improving as expected Overall Assessment Impairment in Function Balance Deficits;Impaired Cognitive Capacities;Impaired Endurance;Impaired Strength Activity Limitations Activity Intolerance;Impaired Bed Mobility;Impaired Cognitive Communication;Impaired Gait;Impaired Transfers;Impaired Stair Climbing Overall Function Pt making progress towards therapy goals, tolerating increasing ambulation distances using FWW in today's session in the hallway. Demonstrates decreased speed overall with narrow FABRICE,requiring verbal cues for safe navigation of the environment. Pt requests to return to supine to rest. Would benefit from additional therapy services to address deficits to maximize functional status. Prognosis for PT Goals Good Factors Limiting Discharge Severity of Impairments Patient appropriate for continued skilled acute care PT to maximize function, safety, and independence? Yes- will continue to assess needs and progress mobility as able. Recommendations PT Discharge Recommendation Able to tolerate 3 hours of therapy Does patient have appropriate support to discharge to prior living situation No- needs help with mobility;No- concern for safety/cognition;No- needs increase caregiver assistance Does patient have recommended equipment Defer to next level of care PT Plan for Next Session progress gait PT - OK to Discharge (Discharge Milestone Signoff) Yes Goals Goals Remain Appropriate Yes AM-PAC Basic Mobility Inpatient Turning in Bed Without Bedrails 3 Lying on Back to Sitting on Edge of Flat Bed 3 Moving Bed to Chair 3 Standing up From Chair 3 Walk in Room 3 Climbing 3-5 Steps 2 Mobility Inpatient Raw Score 17 Session time start: 1033 Session time end: 105 Kayley Cullen PT Care Plan Notes - Charissa Warren RN - 01/08/2022 6:02 AM PDT Problem: Skin Integrity - Risk of, Impaired Goal: Skin integrity intact Outcome: Progressing Problem: Mobility - Impaired Goal: Able to perform prescribed physical activity Outcome: Progressing Problem: Self-care Deficit Goal: Able to perform required activities of daily living Outcome: Progressing Problem: Swallowing - Impaired Goal: Absence of aspiration Outcome: Progressing Care Plan Notes - Rochelle Ndiaye OT - 01/07/2022 8:20 AM PDT Images from the original note were not included. Problem: Self-care Deficit Goal: Able to perform required activities of daily living Outcome: Progressing Occupational Therapy Treatment Recommendations for Nursing: Patient should utilize bedside commode for bathroom needs, with MinimalAssist of 1 person(s). Encourage daily performances of self care tasks with assistance as needed. Patient is being seen today for Occupational Therapy Treatment and is agreeable to session. Patient appropriate for continued skilled acute care OT to maximize function, safety, and independence?: Yes- will continue to assess needs and progress mobility as able. Overall Function: Pt demo's improving activity tolerance and balance for self care and mobility; wasmore alert today and able to follow directions better. Pt tolerated being up in chair at end of session, call light in reach, mom present. Based on clinical judgement within scope of OT Practice, OT Discharge Recommendation: Needs assist with all mobility/ADLs;Needs assist due to cognition/mentation. Does patient have appropriate support to discharge to prior living situation: No Does patient have recommended equipment: Defer to next level of care Therapy Precautions: Other precautions: Falls, Limited safety awareness Comments: droplet Default Flowsheet Data (last 12 hours) OT Treatment Row Name 01/07/22 0820 General info Handoff Post Therapy Session Verbal hand-off to RN completed Subjective Comments Subjective Comments Pt agreeable to OT session; mom present. Pt more alert today and able to initiate tasks after cueing quicker. Pain Pre-Session Rating 0 Vitals Comments VSS Bed Mobility Supine to Sit SBA;HOB elevated Transfers Sit To/From Stand Leigh Bed to/from Chair Leigh;Cues for safety ADL Grooming ModA required max A for combing hair d/t tangles, CGA for face washing for thoroughness; seated Toileting MaxA incontinent of BM, pt appeared unaware Education Education Provided falls prevention;importance of mobility Pt/family provided info re: abilities and prognosis Yes;Additional Education Needed;Family Pt/family understand precautions/limitations Yes;Family;Additional Education Needed Overall Assessment Impairment in Function Balance Deficits;Impaired Cognitive Capacities;Impaired Coordination;Impaired Endurance;Impaired Strength;Reduced Safety Awareness Activity Limitations Activity Intolerance;Impaired ADLs;Impaired Bed Mobility;Impaired Cognitive Communication;Impaired Functional Transfers;Impaired Gait Overall Function Pt demo's improving activity tolerance and balance for self care and mobility; wasmore alert today and able to follow directions better. Pt tolerated being up in chair at end of session, call light in reach, mom present. Prognosis for OT Goals Good Factors Limiting Discharge Limited Caregiver Support;Inaccessible Living Environment;Severity of Impairments;Co-Moribitities Patient appropriate for continued skilled acute care OT to maximize function, safety, and independence? Yes- will continue to assess needs and progress mobility as able. Progress Progress Progressing toward goals Recommendations OT Discharge Recommendation Needs assist with all mobility/ADLs;Needs assist due to cognition/mentation Does patient have appropriate support to discharge to prior living situation No Does patient have recommended equipment Defer to next level of care Plan for Next Session advance self care/mobility as tolerated Goals Goals Remain Appropriate Yes AM-PAC Daily Activity Inpatient Lower body dressing 1 Bathing 1 Toileting 1 Upper Body Dressing 2 Grooming 2 Eating 3 Daily Activity Inpatient Raw Score 10 Daily Activity Inpatient T-Scale Score 27.31 Daily Activity CMS 0-100% Score 74.7 Daily Activity CMS G-Code Modifier CL Plan Treatment Interventions: Self-Care/Home Training, Therapeutic Activities/transfer training, Therapeutic Exercise, Cognitive Skills and/or assessment Frequency: 1x/day for 5-7 days/week for duration of hospital stay or until goals met Session time start: 819 Session time end: 854 Rochelle Ndiaye OT Nursing Notes - Ying Vazquez RN - 01/07/2022 7:25 AM PDT Glucose noted to be 63 on morning labs. OJ and sandwich given to patient along with steroids. Glucose recheck at 0651 with Glucometer 47. 1/2 amp Dextrose given. Glucose recheck at 0703 with [id number]. Patient Alert and oriented the entire time. States he did not feel like his Glucose was low. Patient resting comfortably at this time. On coming shift updated on patient condition and low blow sugars. Will continue to monitor. Care Plan Notes - Mindi Interiano, RD - 01/06/2022 4:13 PM PDT Nutrition Assessment Nutrition Problems: Problem: Inadequate protein-energy intake Etiology: Inability to consume sufficient protein/energy; altered GI tract structure/function, e.g.,gastroparesis Signs & Symptoms: AMS, poor appetite, weight loss Interventions: -- Meal ordered for pt. Ordered chocolate Glucerna daily. -- Food preferences updated in [facility]. -- Nutrition focused physical exam completed. -- Pt discussed in multidisciplinary rounds and with RN. Current Diet Order: Controlled carb 60 gm, thin liquids Assessment: Self-extubated this AM. PAINTINGS RESTORER cleared pt for regular diet textures, NGT removed. Pt unable to participate in conversation - spoke with his mother at bedside who reported numerous concerns including pt's inability to care for his health/hygiene at home, poor dietary choices despite good understanding of n utrition recommendations, and hx of psychological issues (described significant mood swings with inability to hold a job or keep friends, and disordered eating/behaviors indicative of diabulemia from ayoung age). She reported noticing wt loss over the last year, has had to buy pt new pants several sizes smaller than usual. Pt's intake is cyclical - eats items like soup/pasta/fast food 2-3 days of the week and is often violently ill the rest of the week. Pt mother estimated intake of >1 gallon water/day. He drinks Gatorade when ill and has a "pantry full of candy". Her perception is that the gastric stimulator made no difference in this cycle or the severity of his symptoms. Pt's mother has requested any possible resources or support that can be provided as she expressed that she and her feel unable to continue caring for the pt. Nutrition Focused Physical Exam: (Date: 01/06/22) Mild muscle wasting to quadriceps BLE edema Anthropometrics: UBW: unable to obtain IBW: 63.6-77.8 kg (70.7 kg) Estimated needs: Kcals: 830-1730 kcals/d (12-25 kcal/kg ABW (69.3 kg)) Protein: 83-139 g/d (1.2-2 g/kg ABW (69.3 kg)) Fluid: 25-30 ml/kg ABW Monitoring and Evaluation: Pt to consume >50% of meals/ONS during admit -- new goal identified EN tolerance, min abd distention, no emesis -- goal discontinued Lytes WNL -- goal discontinued EN to meet >80% of estimated nutrient needs while NPO -- goal discontinued Care Plan Notes - LORI Dias - 01/06/2022 2:37 PM PDT Speech Therapy Swallow Evaluation Date: 01/06/2022 Patient: Mauri Levine Medical Diagnosis: Metabolic acidosis Date of Onset: 01/03/2022 Pertinent History: Pt presented to OSH with n/v and AMS, intubated (likely 01/02 or 01/03), concern for aspiration of emesis then transferred to . Self- extubated this morning. Other pertinent hx includes DM 2, gastroparesis. Treatment Diagnosis: Rule out oropharyngeal dysphagia Dysphagia risk factors: Intubation Recommendations: Diet: Regular solids and thin liquids with meds as tolerated. Safe Swallow Strategies: 1:1 assist until able to self-feed, fully upright, small bites. Acute PAINTINGS RESTORER will sign off. Subjective: Pt upright in bed, alert and agreeable but somewhat confused, not always responding to questions from PAINTINGS RESTORER or mom. Cognitive-Communication Screening: Vocal quality weak, rough, and gravelly but no breathiness noted. Objective: OME: Unremarkable with all oral motor movements grossly intact. Natural dentition. Oral trials: Ice chips, thin liquids via cup edge and straw, puree, regular solids. Oral phase: Subjectively timely and coordinated. No anterior loss. Mastication functional with good oral clearance. Pharyngeal phase: No clinical indicators of aspiration identified, even with serial drinking of almost 3oz of thins. Assessment: Pt presents with functional oropharyngeal swallow within constraints of bedside evaluation. No diet modification or further PAINTINGS RESTORER services indicated. Plan: Diet Recommendation Diet Texture: Regular/General Liquid Consistency: (Level 0) Thin Liquids Medications: Meds with thin liquids Dysphagia Management Supervision Level: 1:1 feedings (Until stronger and able to self-feed) Aspiration Precautions/Compensatory Strategies: Upright 90%, Small bites Swallowing Treatment Frequency: No further treatment recommended Type of Treatment / Plan: no therapy recommended Discharge Recommendations PAINTINGS RESTORER Recommended Discharge Disposition: No further therapy PAINTINGS RESTORER - OK to Discharge (Discharge Milestone Signoff): Yes Direct Patient Contact: Start Time: 1336 End Time: 1358 Total Time for Evaluation: 33 minutes LORI Dias Problem: Swallowing - Impaired Goal: Absence of aspiration Outcome: Adequate for discharge Care Plan Notes - Tana Mazariegos RN - 01/06/2022 1:30 PM PDT Problem: Discharge Planning Goal: Participation and Acceptance of Discharge arrangements Outcome: Progressing TCS laser/electro optics technician Note Data: Patient on hospital day 3 with Predicted Length of Stay: 8.7, admitted for Acute renal failure., Respiratory failure. Currently in Critical Care Unit due to Metabolic alkalosis, acute on chronic kidney failure. Assessment: [facility] Patient self extubated this morning, now on room air. Receiving Flagyl, Decadron and acyclovir IV. Transitioned off insulin gtt to subcutaneous. Currently on droplet precautions for bacterial meningitis. PT Discharge Recommendation: Needs assist with all mobility/ADLs;Needs assist due to cognition/mentation;Able to tolerate 3 hours of therapy. OT Discharge Recommendation: Needs assist with all mobility/ADLs;Needs assist due to cognition/mentation. Plan: TCS will continue to follow. Care Plan Notes - Esha Melvin, PT - 01/06/2022 10:39 AM PDT Problem: Mobility - Impaired Goal: Able to perform prescribed physical activity Outcome: Progressing Physical Therapy Evaluation Recommendations for Nursing: Patient should sit up in chair when safe. Should ambulate with gait belt, front wheeled walker, and 1 person assistance. Progress mobility as able. Patient is being seen today for Physical Therapy Evaluation and is agreeable to session. Patient appropriate for continued skilled acute care PT to maximize function, safety, and independence?: Yes- will continue to assess needs and progress mobility as able. Overall Function: Pt needed [id number] cues for most functional mobility. He had adequate strengthto stand up, but needed Leigh during standing activity due to poor balance and inadequate abdominal recruitment. Pt presented with flat affect and slow responses. Patient is presenting below reported baseline level of function. Based on clinical judgement within scope of PT Practice, PT Discharge Recommendation: Needs assist with all mobility/ADLs;Needs assist due to cognition/mentation;Able to tolerate 3 hours of therapy. Pt was seen in co-treat with OT for improved patient safety. Does patient have appropriate support to discharge to prior living situation: No- concern for safety/cognition;No- needs increase caregiver assistance Other precautions: Falls Initial Evaluation Subjective Information: Flat affect. Slow, quiet responses. Medical Information Admission Diagnoses: ARF, respiratory failure, AMS, hyperglycemia Possible bacterial meningitis. Home Living Type of Residence : ([facility]) Home Layout: 1/2 Bath on Main Level Number of stairs to enter home: 3 Bathroom Shower/Tub: Walk-in Shower Bathing procedure: Stand Bathroom Toilet: Standard Does patient use equipment at baseline: No Comments: Lives in [facility] on parent's property but per mom's report, pt lives in [facility] and does not take care of himself Prior Level of Function/Living Situation Information provided by:: Patient, Parent Independent with at baseline: All ADL's Comments: Pt's mother stated that he does not take his medications, does not feel they can take careof them. Pain Comments: No complaints of pain. No signs of pain. Vitals BP : 160's/80's supine and seated. HR: 60's Respiratory Rate: 17-28 SpO2: 100% Oxygen Device/Source: None (Room Air) Overall Cognitive Status: Impaired Arousal/Alertness: Delayed responses to stimuli Attention Span: Attends with cues to redirect Orientation: Oriented to self and place (not to date) Following Commands: Follows one step commands consistently Problem Solving: Assistance required to generate solutions, Assistance required to implement solutions Functional Mobility: Bed Mobility Supine to Sit: CGA (cues for sequencing/motor planning) Sit to Supine: CGA (cues for sequencing/motor planning) Transfers Sit to Stand: Leigh Stand to Sit: Leigh Bed to/from Chair: Leigh Assistive Device : Gait Belt Comments: Leigh for balance, but pt had adequate strength to support his weight. Pt took short, stiffsteps to the chair and back to the bed. Poor abdominal recruitment, poor balance. Balance Sitting Balance - Static: Good Sitting Balance - Dynamic: Fair Standing Balance - Static: Poor Standing Balance - Dynamic: Poor Exercise performed this session? No Overall Assessment Impairment in Function: Balance Deficits, Impaired Cognitive Capacities, Impaired Endurance, Impaired Strength Activity Limitations: Activity Intolerance, Impaired Bed Mobility, Impaired Cognitive Communication,Impaired Gait, Impaired Transfers, Impaired Stair Climbing Overall Function: Pt needed [id number] cues for most functional mobility. He had adequate strengthto stand up, but needed Leigh during standing activity due to poor balance and inadequate abdominal recruitment. Pt presented with flat affect and slow responses. Prognosis for PT Goals: Good Factors Limiting Discharge: Severity of Impairments Patient appropriate for continued skilled acute care PT to maximize function, safety, and independence?: Yes- will continue to assess needs and progress mobility as able. PT Discharge Recommendation: Needs assist with all mobility/ADLs, Needs assist due to cognition/mentation, Able to tolerate 3 hours of therapy Does patient have appropriate support to discharge to prior living situation: No- concern for safety/cognition;No- needs increase caregiver assistance Goals Goals- To be met by discharge, patient will demonstrate the following in order to improve functionalmobility in order to maximize independence and promote return to prior living situation: Bed mobility, Sit to/from stand, Ambulation, Stairs Bed mobility: Supine to sit, Sit to supine, HOB flat, Independent Sit to/from stand: Supervision Ambulation: >250 feet (community distance), Supervision Stairs: Ascend/descend 5-10 stairs, Supervision AM-PAC Basic Mobility Inpatient Turning in Bed Without Bedrails: None Lying on Back to Sitting on Edge of Flat Bed: A Little Moving Bed to Chair: A Little Standing up From Chair: A Little Walk in Room: A Lot Climbing 3-5 Steps: A Lot Mobility Inpatient Raw Score: 17 Bed/Chair Alarm Placed: Yes Handoff Post Therapy Session: Verbal hand-off to RN completed Session time start: 1038 Session time end: 1120 Esha Melvin PT Care Plan Notes - Rochelle Ndiaye OT - 01/06/2022 10:35 AM PDT Problem: Self-care Deficit Goal: Able to perform required activities of daily living Outcome: Progressing Occupational Therapy Evaluation Recommendations for Nursing: Patient should utilize bedside commode for bathroom needs, with MinimalAssist of 1 person(s). Encourage daily performances of self care tasks with assistance as needed. Patient is being seen today for Occupational Therapy Evaluation and is agreeable to session. Patient appropriate for continued skilled acute care OT to maximize function, safety, and independence?: Yes- will continue to assess needs and progress mobility as able. Overall Function: below baseline; Pt lena's significant physical and cognitive deficits that limit his mobility and self care. Pt also demo's questionable safety awareness and ability to care for himself per his mom's report and lacks caregiver assist at this time. Will continue OT to maximize safety and indep w/ self care and mobility. Patient is presenting below reported baseline functional level of ADL/IADL performance. Based on clinical judgement within scope of OT Practice, OT Discharge Recommendation: Needs assist with all mobility/ADLs;Needs assist due to cognition/mentation. Does patient have appropriate support to discharge to prior living situation: No Does patient have recommended equipment: Defer to next level of care Plan for Next Session: advance self care/mobility as tolerated Educated patient on OT plan of care, patient goals, and recommendations for discharge needs. Patientin agreement with goals. Other precautions: Falls, Limited safety awareness (soft wrist restraints) Comments: droplet Type of Evaluation: Initial Evaluation Medical Information Admission Diagnoses: ARF, respiratory failure, AMS, hyperglycemia Relevant PMH: see MD notes for further PMH Home Living Lives With : Alone Type of Residence : ([facility]) Home Layout: One Level, Stairs to Enter w/o Rails Number of stairs to enter home: 3 Bathroom Shower/Tub: Walk-in Shower Bathing procedure: Stand Bathroom Toilet: Standard Does patient use equipment at baseline: No Comments: Lives in [facility] on parent's property, uses their bathroom; but per mom's report, [facility] and does not take care of himself Prior Level of Function/Living Situation Information provided by:: Patient, Parent Independent with at baseline: All ADL's Comments: Pt's mother stated that he does not take his medications, does not feel they can take careof them. Pain Pre-Session Ratin Vitals SpO2: 100% Oxygen Device/Source: None (Room Air) Orthostatic BP: Supine BP, Sit BP, Other (Comment) Supine BP: 171/80 Sit BP: 155/92 Comments: 139/106, 167/84 Cognition Overall Cognitive Status: Impaired Arousal/Alertness: Delayed responses to stimuli Attention Span: Difficulty attending to directions/task, Difficulty dividing attention Memory: Decreased immediate memory, Decreased recent memory Orientation: Oriented to self and place (not to date) Following Commands: Follows one step commands with increased time, Follows one step commands with repetition Safety Judgement: Impulsive Problem Solving: Assistance required to implement solutions, Assistance required to identify errors made, Assistance required to generate solutions Dominance: Right Overall RUE: WFL Overall LUE: WFL Functional Activities: Bed Mobility Supine to Sit: CGA, HOB elevated, Bed Rail Sit to Supine: CGA Transfers Sit To/From Stand: Leigh, Cues for safety Bed to/from Chair: Leigh, Cues for safety Assistive Device : Gait Belt ADL Feeding: Contact Guard Assist Grooming: ModA Upper Body Dressing: Leigh Lower Body Dressing: MaxA Toileting: MaxA Balance Sitting Balance - Static: Good Sitting Balance - Dynamic: Fair Education Provided: falls prevention, importance of mobility Pt/family provided info re: abilities and prognosis: Yes, Additional Education Needed Pt/family understand precautions/limitations: Yes, Additional Education Needed Overall Assessment Impairment in Function: Balance Deficits, Impaired Cognitive Capacities, Impaired Coordination, Impaired Endurance, Impaired Strength, Reduced Safety Awareness Activity Limitations: Activity Intolerance, Impaired ADLs, Impaired Bed Mobility, Impaired CognitiveCommunication, Impaired Functional Transfers, Impaired Gait Overall Function: below baseline; Pt mukesho's significant physical and cognitive deficits that limit his mobility and self care. Pt also lena's questionable safety awareness and ability to care for himself per his mom's report and lacks caregiver assist at this time. Will continue OT to maximize safety and indep w/ self care and mobility. Prognosis for OT Goals: Good Factors Limiting Discharge: Limited Caregiver Support, Inaccessible Living Environment, Severity of Impairments, Co-Moribitities, Participation Level Patient appropriate for continued skilled acute care OT to maximize function, safety, and independence?: Yes- will continue to assess needs and progress mobility as able. Exercise performed this session? No Plan Treatment Interventions: Self-Care/Home Training, Cognitive Skills and/or assessment, Therapeutic Activities/transfer training, Therapeutic Exercise Frequency: 1x/day for 5-7 days/week for duration of hospital stay or until goals met OT Discharge Recommendation: Needs assist with all mobility/ADLs, Needs assist due to cognition/mentation Does patient have appropriate support to discharge to prior living situation: No Goals Goals- Patient will demonstrate the following in order to maximize ability to participate in self care and activities of daily living: : Upper Extremity Dressing, Lower Extremity Dressing, Bed Mobility, Transfers, Hygiene at Sink, Standing Tolerance, Pericare, Toileting Clothing Management, Self Feeding Upper Extremity Dressing: Supervision Lower Extremity Dressing: Supervision Pericare: Supervision Bed mobility: Independent Toileting Clothing Management: Supervision Transfers: Supervision Hygiene at Sink: Standing Standing Tolerance: 6-10 minutes, Supervision Self Feeding: Independent AM-PAC Daily Activity Inpatient Lower body dressing: Total Bathing: Total Toileting: Total Upper Body Dressing: A Lot Grooming: A Lot Eating: A Little Daily Activity Inpatient Raw Score : 10 Daily Activity Inpatient T-Scale Score: 27.31 Daily Activity CMS 0-100% Score : 74.7 Daily Activity CMS G-Code Modifier : CL Session time start: 1035 Session time end: 1124 Rochelle Ndiaye OT Ancillary Notes - Wilfrid Javier RCP - 01/06/2022 5:05 AM PDT Patient self extubated. Placed on nasal cannula/ETCO2 monitoring. He is a bit drowsy but awake and answering questions. Dr Nobles notified. Care Plan Notes - Tana Mazariegos RN - 01/05/2022 3:19 PM PDT Problem: Discharge Planning Goal: Participation and Acceptance of Discharge arrangements Outcome: Progressing TCS laser/electro optics technician Note Data: Patient on hospital day 2 with Predicted Length of Stay: 8.7, admitted for Acute renal failure, Respiratory failure. Currently in Critical Care Unit due to Metabolic alkalosis, acute on chronic kidney failure. Assessment: Review[facility] Patient currently on insulin gtt, precedex, Decadron, Rocephin and acyclovir IV and ventilated. Reportedly more alert today. Plan: TCS will continue to follow. Care Plan Notes - Nunu Cohn, CARE MANAGEMENT - 01/05/2022 3:09 PM PDT TCS with pts mother, Sarahy, who is signing on pts behalf. *pt is intubated Epic downtime prevented electronic signature of IMM Initial document TCS printed hard copy of paper, Sarahy signed, and received copy TCS put pt sap business intelligence consultant IMM, given to Antonietta Vazquezmpton Ancillary Notes - Irma Dotson RCP - 01/05/2022 1:10 PM PDT Ventilator changed due to screen going black. Ventilator turned back on within 30 seconds. Ventilator still gave patient breaths. No harm done to patient. Off SBT due to triggering apnea alarm 3 times with RT in the room. Care Plan Notes - Mindi Interiano, RD - 01/05/2022 11:22 AM PDT Nutrition Assessment Nutrition Problems: Problem: Inadequate protein-energy intake Etiology: Inability to consume sufficient protein/energy; altered GI tract structure/function, e.g.,gastroparesis Signs & Symptoms: NPO r/t mechanical ventilation and AMS Interventions: -- Ordered Vital HP at 10 ml/hr to infuse via NGT post-extubation or if unable to extubate. -- Given hx of severe gastroparesis, HOB should be maintained >/= 45 degrees as able while TF infuses to minimize aspiration risk. -- Pt discussed in multidisciplinary rounds. Current Diet Order: NPO Assessment: Alerted to nutrition risk score and request from provider to initiate trophic feeding today. Pt is intubated with minimal sedation, attempting to extubate. Plan to place NGT today. ROSALIO noted, nephrology following. LR at 100 ml/hr. No vasopressor requirement. No documented wt hx available. Notes indicate that pt experiences symptoms of gastroparesis 5 out of 7 days/week despite having a gastric stimulator device. OGT with ~600 cc bilious output X24 hrs. If pt is unable to tolerate enteral feeding r/tgastroparesis should consider a prokinetic if appropriate. Will obtain further nutrition hx as able. Nutrition Focused Physical Exam: (Date: X) Deferred Anthropometrics: UBW: unable to obtain IBW: 63.6-77.8 kg (70.7 kg) Estimated needs: Kcals: 830-1730 kcals/d (12-25 kcal/kg ABW (69.3 kg)) Protein: 83-139 g/d (1.2-2 g/kg ABW (69.3 kg)) Fluid: 25-30 ml/kg ABW Enteral Nutrition Goal: Formula: Vital HP Rate: 10 ml/hr FW: none Fortifier: none Nutrition Profile: 240 Kcal, 21 g Protein, 27 g Carbohydrates, 0 g fiber, 201 mL water, 16% RDI. Meets 29% of estimated caloric needs, 25% protein needs. Monitoring and Evaluation: EN tolerance, min abd distention, no emesis -- new goal identified Lytes WNL -- new goal identified EN to meet >80% of estimated nutrient needs while NPO -- new goal identified Care Plan Notes - Tish Boyd LMSW - 01/04/2022 12:01 PM PDT Problem: Discharge Planning Goal: Participation and Acceptance of Discharge arrangements Outcome: Progressing D/A: This author talked with pt's mother Roxie who was at bedside as the pt is intubated. Roxie reports that the pt struggles with " mental issues" and lives behind there house in a camper trailer on there property. She reports that he has medicaid and social security disability and that he has prescription coverage. Roxie reports that he doesn't take care of himself and " He lives in [facility] Shereports that he also doesn't take medication as prescribed. Roxie reports that the preferred pharmacy is [facility] on [address]. This author told Roxie about [place] however she reports that she tried and that they are currently full and she is staying in a hotel. Plan:TCS team will continue to monitor. JAVAD Winston Ancillary Notes - Ita Gagnon RCP - 01/04/2022 7:58 AM PDT Rt will continue to follow pt with all pulm needs and vent management. Nursing Notes - Juanita Hurtado RN - 01/03/2022 7:35 PM PDT Received pt from [facility]. After settling pt began SAT. Pt became restless but not following commands or opening eyes. Pupils also uneven and sluggish. MD aware. Pt's mother updated at bedside by both nephrology and ICU. Pt making large amounts of clear yellow urine, no need for HD at this time per nephrology. LR started at 150ml/hr. Replaced potassium per CC protocol, resumed insulin infusion oncepotassium agustina >3.3 per protocol. Pt febrile, MD aware. Ice bags placed, awaiting tylenol order. LP procedure performed at bedside by Dr. Townsend, pt tolerated well with moderate sedation. StartedFentanyl gtt per Dr. Townsend for pt comfort d/t inability to perform SBT. Sent urine specimen down for UA and culture. Pt remains febrile, all other VSS. Ancillary Notes - Ita Gagnon RCP - 01/03/2022 5:51 PM PDT ABG drawn Ancillary Notes - Ita Gagnon RCP - 01/03/2022 1:43 PM PDT Pt transferred to use from outside facility with a 7.5 ETT @ 23 lip. Haroonat BS. Tube secure with ETAD. G drawn. Rt will continue to follow pt with all pulm needs and vent management. documented in this encounter Plan of Treatment Upcoming Encounters Date Type Specialty Care Team Description 07/26/2022 Office Visit Endocrinology Angela Negro MD [address] [facility] [address] [place] [id number] (Wo rk) documented as of this encounter Procedures Procedure Name Priority Date/Time Associated Diagnosis Comme nts POCT GLUCOSE ACCUCHECK Routine 01/11/2022 3:00 Re sults for PM PDT this procedure are in the results section. POCT GLUCOSE ACCUCHECK Routine 01/11/2022 11:06 R esults for AM PDT this procedure are in the results section. POCT GLUCOSE ACCUCHECK Routine 01/11/2022 7:53 Re sults for AM PDT this procedure are in the results section. CBC WITH AUTO Routine 01/11/2022 6:16 Results for DIFFERENTIAL AM PDT this procedure are in the results section. RENAL PROFILE Routine 01/11/2022 6:16 Results for AM PDT this procedure are in the results section. MAGNESIUM Routine 01/11/2022 6:16 Results for AM PDT this procedure are in the results section. CBC W/AUTO Routine 01/11/2022 6:16 Results for DIFFERENTIAL AM PDT this procedure are in the results section. POCT GLUCOSE ACCUCHECK Routine 01/10/2022 8:44 Re sults for PM PDT this procedure are in the results section. POCT GLUCOSE ACCUCHECK Routine 01/10/2022 5:47 Re sults for PM PDT this procedure are in the results section. POCT GLUCOSE ACCUCHECK Routine 01/10/2022 5:26 Re sults for PM PDT this procedure are in the results section. POCT GLUCOSE ACCUCHECK Routine 01/10/2022 5:19 Re sults for PM PDT this procedure are in the results section. POCT GLUCOSE ACCUCHECK Routine 01/10/2022 12:13 R esults for PM PDT this procedure are in the results section. POCT GLUCOSE ACCUCHECK Routine 01/10/2022 9:18 Re sults for AM PDT this procedure are in the results section. CBC WITH AUTO Routine 01/10/2022 6:12 Results for DIFFERENTIAL AM PDT this procedure are in the results section. RENAL PROFILE Routine 01/10/2022 6:12 Results for AM PDT this procedure are in the results section. MAGNESIUM Routine 01/10/2022 6:12 Results for AM PDT this procedure are in the results section. CBC W/AUTO Routine 01/10/2022 6:12 Results for DIFFERENTIAL AM PDT this procedure are in the results section. POCT GLUCOSE ACCUCHECK Routine 01/09/2022 8:06 Re sults for PM PDT this procedure are in the results section. POCT GLUCOSE ACCUCHECK Routine 01/09/2022 5:11 Re sults for PM PDT this procedure are in the results section. POCT GLUCOSE ACCUCHECK Routine 01/09/2022 11:54 R esults for AM PDT this procedure are in the results section. POCT GLUCOSE ACCUCHECK Routine 01/09/2022 7:24 Re sults for AM PDT this procedure are in the results section. CBC WITH AUTO Routine 01/09/2022 5:26 Results for DIFFERENTIAL AM PDT this procedure are in the results section. RENAL PROFILE Routine 01/09/2022 5:26 Results for AM PDT this procedure are in the results section. MAGNESIUM Routine 01/09/2022 5:26 Results for AM PDT this procedure are in the results section. CBC W/AUTO Routine 01/09/2022 5:26 Results for DIFFERENTIAL AM PDT this procedure are in the results section. POCT GLUCOSE ACCUCHECK Routine 01/08/2022 9:09 Re sults for PM PDT this procedure are in the results section. POCT GLUCOSE ACCUCHECK Routine 01/08/2022 4:18 Re sults for PM PDT this procedure are in the results section. POCT GLUCOSE ACCUCHECK Routine 01/08/2022 11:03 R esults for AM PDT this procedure are in the results section. POCT GLUCOSE ACCUCHECK Routine 01/08/2022 7:23 Re sults for AM PDT this procedure are in the results section. CBC WITH AUTO Routine 01/08/2022 5:07 Results for DIFFERENTIAL AM PDT this procedure are in the results section. RENAL PROFILE Routine 01/08/2022 5:07 Results for AM PDT this procedure are in the results section. MAGNESIUM Routine 01/08/2022 5:07 Results for AM PDT this procedure are in the results section. CBC W/AUTO Routine 01/08/2022 5:07 Results for DIFFERENTIAL AM PDT this procedure are in the results section. POCT GLUCOSE ACCUCHECK Routine 01/07/2022 9:23 Re sults for PM PDT this procedure are in the results section. POCT GLUCOSE ACCUCHECK Routine 01/07/2022 7:33 Re sults for PM PDT this procedure are in the results section. POCT GLUCOSE ACCUCHECK Routine 01/07/2022 4:31 Re sults for PM PDT this procedure are in the results section. POCT GLUCOSE ACCUCHECK Routine 01/07/2022 11:35 R esults for AM PDT this procedure are in the results section. POCT GLUCOSE ACCUCHECK Routine 01/07/2022 8:26 Re sults for AM PDT this procedure are in the results section. POCT GLUCOSE ACCUCHECK Routine 01/07/2022 6:56 Re sults for AM PDT this procedure are in the results section. POCT GLUCOSE ACCUCHECK Routine 01/07/2022 6:37 Re sults for AM PDT this procedure are in the results section. MANUAL DIFFERENTIAL - Routine 01/07/2022 3:20 Res ults for [facility] AM PDT this procedure are in the results section. CBC WITH AUTO Routine 01/07/2022 3:20 Results for DIFFERENTIAL AM PDT this procedure are in the results section. RENAL PROFILE Routine 01/07/2022 3:20 Results for AM PDT this procedure are in the results section. MAGNESIUM Routine 01/07/2022 3:20 Results for AM PDT this procedure are in the results section. CBC W/AUTO Routine 01/07/2022 3:20 Results for DIFFERENTIAL AM PDT this procedure are in the results section. POCT GLUCOSE ACCUCHECK Routine 01/06/2022 11:48 R esults for PM PDT this procedure are in the results section. POCT GLUCOSE ACCUCHECK Routine 01/06/2022 8:30 Re sults for PM PDT this procedure are in the results section. POCT GLUCOSE ACCUCHECK Routine 01/06/2022 5:02 Re sults for PM PDT this procedure are in the results section. POCT GLUCOSE ACCUCHECK Routine 01/06/2022 11:33 R esults for AM PDT this procedure are in the results section. POCT GLUCOSE ACCUCHECK Routine 01/06/2022 7:36 Re sults for AM PDT this procedure are in the results section. POTASSIUM Routine 01/06/2022 6:54 Results for AM PDT this procedure are in the results section. CBC WITH AUTO Routine 01/06/2022 6:00 Results for DIFFERENTIAL AM PDT this procedure are in the results section. RENAL PROFILE Routine 01/06/2022 6:00 Results for AM PDT this procedure are in the results section. MAGNESIUM Routine 01/06/2022 6:00 Results for AM PDT this procedure are in the results section. CBC W/AUTO Routine 01/06/2022 6:00 Results for DIFFERENTIAL AM PDT this procedure are in the results section. POCT GLUCOSE ACCUCHECK Routine 01/06/2022 5:38 Re sults for AM PDT this procedure are in the results section. POCT GLUCOSE ACCUCHECK Routine 01/06/2022 3:32 Re sults for AM PDT this procedure are in the results section. POCT GLUCOSE ACCUCHECK Routine 01/06/2022 1:36 Re sults for AM PDT this procedure are in the results section. POCT GLUCOSE ACCUCHECK Routine 01/05/2022 11:36 R esults for PM PDT this procedure are in the results section. POCT GLUCOSE ACCUCHECK Routine 01/05/2022 9:32 Re sults for PM PDT this procedure are in the results section. POCT GLUCOSE ACCUCHECK Routine 01/05/2022 7:32 Re sults for PM PDT this procedure are in the results section. POCT GLUCOSE ACCUCHECK Routine 01/05/2022 5:28 Re sults for PM PDT this procedure are in the results section. POCT GLUCOSE ACCUCHECK Routine 01/05/2022 3:23 Re sults for PM PDT this procedure are in the results section. POCT GLUCOSE ACCUCHECK Routine 01/05/2022 2:27 Re sults for PM PDT this procedure are in the results section. POCT GLUCOSE ACCUCHECK Routine 01/05/2022 1:31 Re sults for PM PDT this procedure are in the results section. POCT GLUCOSE ACCUCHECK Routine 01/05/2022 12:37 R esults for PM PDT this procedure are in the results section. POCT GLUCOSE ACCUCHECK Routine 01/05/2022 11:35 R esults for AM PDT this procedure are in the results section. O XR KUB TO CHECK Routine 01/05/2022 10:45 Result s for FEEDING TUBE AM PDT this procedure are in the results section. POCT GLUCOSE ACCUCHECK Routine 01/05/2022 10:35 R esults for AM PDT this procedure are in the results section. POCT GLUCOSE ACCUCHECK Routine 01/05/2022 9:28 Re sults for AM PDT this procedure are in the results section. POTASSIUM Routine 01/05/2022 9:06 Results for AM PDT this procedure are in the results section. POCT GLUCOSE ACCUCHECK Routine 01/05/2022 8:24 Re sults for AM PDT this procedure are in the results section. POCT GLUCOSE ACCUCHECK Routine 01/05/2022 7:28 Re sults for AM PDT this procedure are in the results section. POCT GLUCOSE ACCUCHECK Routine 01/05/2022 6:25 Re sults for AM PDT this procedure are in the results section. POCT GLUCOSE ACCUCHECK Routine 01/05/2022 5:10 Re sults for AM PDT this procedure are in the results section. CBC WITH AUTO Routine 01/05/2022 5:06 Results for DIFFERENTIAL AM PDT this procedure are in the results section. RENAL PROFILE Routine 01/05/2022 5:06 Results for AM PDT this procedure are in the results section. MAGNESIUM Routine 01/05/2022 5:06 Results for AM PDT this procedure are in the results section. CBC W/AUTO Routine 01/05/2022 5:06 Results for DIFFERENTIAL AM PDT this procedure are in the results section. POCT GLUCOSE ACCUCHECK Routine 01/05/2022 4:13 Re sults for AM PDT this procedure are in the results section. POCT GLUCOSE ACCUCHECK Routine 01/05/2022 3:25 Re sults for AM PDT this procedure are in the results section. POCT GLUCOSE ACCUCHECK Routine 01/05/2022 2:27 Re sults for AM PDT this procedure are in the results section. POCT GLUCOSE ACCUCHECK Routine 01/05/2022 1:11 Re sults for AM PDT this procedure are in the results section. POCT GLUCOSE ACCUCHECK Routine 01/05/2022 12:10 R esults for AM PDT this procedure are in the results section. POCT GLUCOSE ACCUCHECK Routine 01/04/2022 11:10 R esults for PM PDT this procedure are in the results section. POCT GLUCOSE ACCUCHECK Routine 01/04/2022 10:27 R esults for PM PDT this procedure are in the results section. POCT GLUCOSE ACCUCHECK Routine 01/04/2022 9:19 Re sults for PM PDT this procedure are in the results section. POCT GLUCOSE ACCUCHECK Routine 01/04/2022 8:03 Re sults for PM PDT this procedure are in the results section. POCT GLUCOSE ACCUCHECK Routine 01/04/2022 6:27 Re sults for PM PDT this procedure are in the results section. POCT GLUCOSE ACCUCHECK Routine 01/04/2022 5:27 Re sults for PM PDT this procedure are in the results section. POCT GLUCOSE ACCUCHECK Routine 01/04/2022 4:39 Re sults for PM PDT this procedure are in the results section. POCT GLUCOSE ACCUCHECK Routine 01/04/2022 3:36 Re sults for PM PDT this procedure are in the results section. POCT GLUCOSE ACCUCHECK Routine 01/04/2022 2:25 Re sults for PM PDT this procedure are in the results section. POCT GLUCOSE ACCUCHECK Routine 01/04/2022 1:23 Re sults for PM PDT this procedure are in the results section. POCT GLUCOSE ACCUCHECK Routine 01/04/2022 12:30 R esults for PM PDT this procedure are in the results section. POCT GLUCOSE ACCUCHECK Routine 01/04/2022 11:27 R esults for AM PDT this procedure are in the results section. POCT GLUCOSE ACCUCHECK Routine 01/04/2022 10:26 R esults for AM PDT this procedure are in the results section. POCT GLUCOSE ACCUCHECK Routine 01/04/2022 9:22 Re sults for AM PDT this procedure are in the results section. POCT GLUCOSE ACCUCHECK Routine 01/04/2022 8:24 Re sults for AM PDT this procedure are in the results section. RENAL PROFILE Timed 01/04/2022 8:19 Results for AM PDT this procedure are in the results section. PHOSPHORUS Timed 01/04/2022 8:19 Results for AM PDT this procedure are in the results section. BASIC METABOLIC PANEL Timed 01/04/2022 8:19 Res ults for AM PDT this procedure are in the results section. POCT GLUCOSE ACCUCHECK Routine 01/04/2022 7:28 Re sults for AM PDT this procedure are in the results section. POCT GLUCOSE ACCUCHECK Routine 01/04/2022 6:34 Re sults for AM PDT this procedure are in the results section. POCT GLUCOSE ACCUCHECK Routine 01/04/2022 5:20 Re sults for AM PDT this procedure are in the results section. POCT GLUCOSE ACCUCHECK Routine 01/04/2022 5:18 Re sults for AM PDT this procedure are in the results section. POCT GLUCOSE ACCUCHECK Routine 01/04/2022 4:19 Re sults for AM PDT this procedure are in the results section. VANCOMYCIN, RANDOM Timed 01/04/2022 4:13 Result s for AM PDT this procedure are in the results section. PHOSPHORUS Timed 01/04/2022 4:13 Results for AM PDT this procedure are in the results section. BASIC METABOLIC PANEL Timed 01/04/2022 4:13 Res ults for AM PDT this procedure are in the results section. POCT GLUCOSE ACCUCHECK Routine 01/04/2022 2:34 Re sults for AM PDT this procedure are in the results section. POTASSIUM STAT 01/04/2022 2:28 Results for AM PDT this procedure are in the results section. MAGNESIUM Routine 01/04/2022 2:28 Results for AM PDT this procedure are in the results section. POCT GLUCOSE ACCUCHECK Routine 01/04/2022 1:03 Re sults for AM PDT this procedure are in the results section. POCT GLUCOSE ACCUCHECK Routine 01/04/2022 12:31 R esults for AM PDT this procedure are in the results section. POCT GLUCOSE ACCUCHECK Routine 01/03/2022 11:41 R esults for PM PDT this procedure are in the results section. PHOSPHORUS Timed 01/03/2022 11:37 Results for PM PDT this procedure are in the results section. BASIC METABOLIC PANEL Timed 01/03/2022 11:37 Re sults for PM PDT this procedure are in the results section. POCT GLUCOSE ACCUCHECK Routine 01/03/2022 10:56 R esults for PM PDT this procedure are in the results section. POCT GLUCOSE ACCUCHECK Routine 01/03/2022 10:21 R esults for PM PDT this procedure are in the results section. POCT GLUCOSE ACCUCHECK Routine 01/03/2022 9:42 Re sults for PM PDT this procedure are in the results section. POCT GLUCOSE ACCUCHECK Routine 01/03/2022 8:50 Re sults for PM PDT this procedure are in the results section. PHOSPHORUS Timed 01/03/2022 8:31 Results for PM PDT this procedure are in the results section. BASIC METABOLIC PANEL Timed 01/03/2022 8:31 Res ults for PM PDT this procedure are in the results section. CULTURE, BLOOD Routine 01/03/2022 8:23 Results fo r PM PDT this procedure are in the results section. POCT GLUCOSE ACCUCHECK Routine 01/03/2022 7:53 Re sults for PM PDT this procedure are in the results section. POCT GLUCOSE ACCUCHECK Routine 01/03/2022 7:00 Re sults for PM PDT this procedure are in the results section. CELL COUNT W/REFLEX Routine 01/03/2022 6:24 Resul ts for DIFFERENTIAL, CSF (P) PM PDT this p rocedure are in the results section. MENINGITIS/ENCEPHALITI STAT 01/03/2022 6:24 Re sults for S PATHOGEN PANEL, PCR, PM PDT this procedure SPINAL FLUID are in the results section. PATHOLOGY REVIEW Routine 01/03/2022 6:24 Results for PM PDT this procedure are in the results section. DIFFERENTIAL, CSF Routine 01/03/2022 6:24 Results for PM PDT this procedure are in the results section. GLUCOSE, CSF Routine 01/03/2022 6:24 Results for PM PDT this procedure are in the results section. CELL COUNT W/REFLEX Routine 01/03/2022 6:24 Resul ts for DIFFERENTIAL, CSF PM PDT this proce dure are in the results section. CULTURE, CSF Routine 01/03/2022 6:24 Results for PM PDT this procedure are in the results section. CULTURE, BLOOD Routine 01/03/2022 6:24 Results fo r PM PDT this procedure are in the results section. AR SPINAL PUNCTURE, Routine 01/03/2022 6:13 Acute metabolic Re sults for LUMBAR, DIAGNOSTIC PM PDT encephalopathy this pr ocedure are in the results section. POCT CHEMSTAT Routine 01/03/2022 5:41 Results for PM PDT this procedure are in the results section. POCT LACTIC ACID Routine 01/03/2022 5:41 Results for (LACTATE) PM PDT this procedure are in the results section. POCT ARTERIAL BLOOD Routine 01/03/2022 5:41 Resul ts for GAS PM PDT this procedure are in the results section. POCT GLUCOSE ACCUCHECK Routine 01/03/2022 5:06 Re sults for PM PDT this procedure are in the results section. PHOSPHORUS Timed 01/03/2022 4:14 Results for PM PDT this procedure are in the results section. BASIC METABOLIC PANEL Timed 01/03/2022 4:14 Res ults for PM PDT this procedure are in the results section. POCT POTASSIUM Routine 01/03/2022 4:06 Results fo r PM PDT this procedure are in the results section. POCT LACTIC ACID Routine 01/03/2022 4:06 Results for (LACTATE) PM PDT this procedure are in the results section. POCT GLUCOSE EPOC Routine 01/03/2022 4:06 Results for PM PDT this procedure are in the results section. O XR CHEST 1 VIEW - PA STAT 01/03/2022 3:33 Re sults for OR AP PM PDT this procedure are in the results section. POCT GLUCOSE ACCUCHECK Routine 01/03/2022 3:07 Re sults for PM PDT this procedure are in the results section. O US RETROPERITONEAL Routine 01/03/2022 2:57 Resu lts for PM PDT this procedure are in the results section. URINALYSIS STAT 01/03/2022 1:48 Results for W/MICROSCOPIC AND PM PDT this proce dure CULTURE IF INDICATED are in the results section. URINE DRUG SCREEN STAT 01/03/2022 1:48 Results for PM PDT this procedure are in the results section. O EKG STAT 01/03/2022 1:45 Results for PM PDT this procedure are in the results section. POCT CHEMSTAT Routine 01/03/2022 1:30 Results for PM PDT this procedure are in the results section. POCT LACTIC ACID Routine 01/03/2022 1:30 Results for (LACTATE) PM PDT this procedure are in the results section. POCT ARTERIAL BLOOD Routine 01/03/2022 1:30 Resul ts for GAS PM PDT this procedure are in the results section. PROTHROMBIN TIME (PT) STAT 01/03/2022 1:28 Res ults for AND PARTIAL PM PDT this procedure THROMBOPLASTIN TIME are in t he (PTT) results section. CBC WITH AUTO STAT 01/03/2022 1:28 Results for DIFFERENTIAL PM PDT this procedure are in the results section. TSH STAT Add-On 01/03/2022 1:28 Results for PM PDT this procedure are in the results section. PHOSPHORUS STAT 01/03/2022 1:28 Results for PM PDT this procedure are in the results section. MAGNESIUM STAT 01/03/2022 1:28 Results for PM PDT this procedure are in the results section. LIPASE Add-On 01/03/2022 1:28 Results for PM PDT this procedure are in the results section. LACTIC ACID, VENOUS STAT 01/03/2022 1:28 Resul ts for PM PDT this procedure are in the results section. HIV-1/HIV-2 ANTIGEN Add-On 01/03/2022 1:28 Resul ts for AND ANTIBODY SCR W/ PM PDT this pro cedure CONFIRMATION are in the results section. HEPATIC FUNCTION PANEL Add-On 01/03/2022 1:28 Re sults for PM PDT this procedure are in the results section. HEMOGLOBIN A1C Add-On 01/03/2022 1:28 Results fo r PM PDT this procedure are in the results section. CK STAT Add-On 01/03/2022 1:28 Results for PM PDT this procedure are in the results section. CBC W/AUTO STAT 01/03/2022 1:28 Results for DIFFERENTIAL PM PDT this procedure are in the results section. BASIC METABOLIC PANEL STAT 01/03/2022 1:28 Res ults for PM PDT this procedure are in the results section. documented in this encounter Results (ABNORMAL) POC Glucose (01/11/2022 3:00 PM PDT) P athologist Signature Glucose (POC) 135 (H) 65 - 99 01/11/2022 [facility] mg/dL 3:06 PM PDT [facility] ([facility]) Specimen Anatomical Collection Method Collection Time Receive d Time (Source) Location / / Volume Laterality Blood 01/11/2022 3:00 PM 2 3:06 (Capillary) PDT PM PDT Clarice Merino DO BKR LAB POINT OF CARE TEST D OCKED DEVICE UNSOLICITED RESULTS Performing Organization Address City/State/ZIP Code Phon [facility] Number [facility] [address] [facility] [place] LABORATORY ([facility]) WAY [phone] (ABNORMAL) POC Glucose (01/11/2022 11:06 AM PDT) P athologist Signature Glucose (POC) 139 (H) 65 - 99 01/11/2022 [facility] mg/dL 11:12 AM PDT [facility] LABORATORY ([facility]) Specimen Anatomical Collection Method Collection Time Receive d Time (Source) Location / / Volume Laterality Blood 01/11/2022 11:06 01/11/2022 (Capillary) AM PDT 11:12 AM PDT Clarice Merino DO BKR LAB POINT OF CARE TEST D OCKED DEVICE UNSOLICITED RESULTS Performing Organization Address City/State/ZIP Code Ph[facility] Number [facility] [address] [place] [facility] ([facility]) [address] [phone] (ABNORMAL) POC Glucose (01/11/2022 7:53 AM PDT) P athologist Signature Glucose (POC) 142 (H) 65 - 99 01/11/2022 [facility] mg/dL 8:05 AM PDT [facility] LABORATORY ([facility]) Specimen Anatomical Collection Method Collection Time Receive d Time (Source) Location / / Volume Laterality Blood 01/11/2022 7:53 AM 2 8:05 (Capillary) PDT AM PDT Clarice NIETOR LAB POINT OF CARE TEST D OCKED DEVICE UNSOLICITED RESULTS Performing Organization Address City/State/ZIP Code Ph[facility] Number [facility] [address] [facility] [place] LABORATORY ([facility]) WAY [phone] (ABNORMAL) CBC w/Auto Differential (01/11/2022 6:16 AM PDT) [facility] gist Method Time Signature WBC 9.77 4.00 - 01/11/2022 [facility] 11.00 6:27 AM PDT [facility]IN x10E3/uL LABORATORY ([facility]) RBC 4.29 (L) 4.30 - 01/11/2022 [facility] 5.70 6:27 AM PDT [facility] MA[facility] x10E6/uL LABORATORY ([facility]) Hemoglobin 11.8 (L) 13.7 - 01/11/2022 [facility] 16.7 g/dL 6:27 AM PDT [facility] LABORATORY ([facility]) Hematocrit 36.5 (L) 40.0 - 01/11/2022 [facility] 50.0 % 6:27 AM PDT [facility] MAIN LABORATORY ([facility]) MCV 85.1 80.0 - 01/11/2022 [facility] 100.0 fL 6:27 AM PDT [facility] MAIN LABORATORY ([facility]) MCH 27.5 27.0 - 01/11/2022 [facility] 34.0 pg 6:27 AM PDT [facility] LABORATORY ([facility]) MCHC 32.3 31.5 - 01/11/2022 [facility] 35.7 g/dL 6:27 AM PDT [facility] LABORATORY ([facility]) RDW 13.1 11.0 - 01/11/2022 [facility] 15.0 % 6:27 AM PDT [facility] LABORATORY ([facility]) Platelet Count 251 150 - 400 01/11/2022 [facility] x10E3/uL 6:27 AM [facility] LABORATORY ([facility]) MPV 11.2 9.4 - 01/11/2022 [facility] 12.4 fL 6:27 AM [facility] LABORATORY ([facility]) Neutrophils %, 51.0 40.0 - 01/11/2022 [facility] Automated 80.0 % 6:27 AM PDT [facility] LABORATORY ([facility]) Immature 4.5 (H) 0.0 - 1.0 01/11/2022 [facility] Granulocytes %, % 6:27 AM PDT [facility] Automated LABORATORY ([facility]) Lymphocytes %, 29.3 15.0 - 01/11/2022 [facility] Automated 45.0 % 6:27 AM PDT [facility] LABORATORY ([facility]) Monocytes %, 14.0 (H) 0.0 - 01/11/2022 [facility] Automated 12.0 % 6:27 AM PDT [facility] LABORATORY ([facility]) Eosinophils %, 0.9 0.0 - 7.0 01/11/2022 [facility] Automated % 6:27 AM PDT [facility] LABORATORY ([facility]) Basophils %, 0.3 0.0 - 2.0 01/11/2022 [facility] Automated % 6:27 AM PDT [facility] LABORATORY ([facility]) Neutrophils Abs, 4.98 2.00 - 01/11/2022 [facility] Automated 7.30 6:27 AM PDT [facility] x10E3/uL LABORATORY ([facility]) Immature 0.44 (H) 0.00 - 01/11/2022 [facility] Granulocyte Abs, 0.05 6:27 AM [facility] Automated x10E3/uL LABORATORY ([facility]) Lymphocytes Abs, 2.86 1.00 - 01/11/2022 [facility] Automated 3.40 6:27 AM PDT [facility] x10E3/uL LABORATORY ([facility]) Monocytes Abs, 1.37 (H) 0.00 - 01/11/2022 [facility] Automated 0.80 6:27 AM PDT [facility] x10E3/uL LABORATORY ([facility]) Eosinophils Abs, 0.09 0.00 - 01/11/2022 [facility] Automated 0.50 6:27 AM PDT [facility] x10E3/uL LABORATORY ([facility]) Basophils Abs, 0.03 0.00 - 01/11/2022 [facility] Automated 0.10 6:27 AM PDT [facility] x10E3/uL LABORATORY ([facility]) nRBC %, 0.0 0.0 - 1.0 01/11/2022 [facility] Automated /100 WBC 6:27 AM [facility] LABORATORY ([facility]) nRBC Abs, 0.00 0.00 - 01/11/2022 [facility] Automated 0.01 6:27 AM [facility] x10E3/uL LABORATORY ([facility]) Specimen Anatomical Collection Method / Collection Time Recei pierre Time (Source) Location / Volume Laterality Blood (Venous) Venipuncture / 01/11/2022 6:16 01/12/20 22 6:22 Unknown AM PDT AM PDT Mustapha RUIZ LAB BLOOD ORDERABLES Performing Organization Address City/State/ZIP Code Phon e Number [facility] [address] [facility] [place] LABORATORY ([facility]) WAY [phone] Magnesium (01/11/2022 6:16 AM PDT) P athologist Signature Magnesium 1.7 1.7 - 2.4 01/11/2022 [facility] mg/dL 6:54 AM [facility] MA[facility] LABORATORY ([facility]) Specimen Anatomical Collection Method / Collection Time Recei pierre Time (Source) Location / Volume Laterality Blood (Venous) Venipuncture / 01/11/2022 6:16 01/12/20 6:22 Unknown AM PDT AM PDT Mustapha Leonard DO BKR LAB BLOOD ORDERABLES Performing Organization Address City/State/ZIP Code Phon e Number [facility] [address] [facility] [place] LABORATORY ([facility]) WAY [phone] (ABNORMAL) Renal Profile (01/11/2022 6:16 AM PDT) Patholo gist Method Time Signature Sodium 135 (L) 136 - 145 01/11/2022 [facility] mmol/L 6:54 AM [facility] LABORATORY ([facility]) Potassium 3.9 3.5 - 5.0 01/11/2022 [facility] mmol/L 6:54 AM [facility] LABORATORY ([facility]) Chloride 101 99 - 109 01/11/2022 [facility] mmol/L 6:54 AM [facility] LABORATORY ([facility]) CO2 26 23 - 33 01/11/2022 [facility] mmol/L 6:54 AM [facility] LABORATORY ([facility]) Anion Gap 8 5 - 16 01/11/2022 [facility] ratio 6:54 AM [facility] LABORATORY ([facility]) Creatinine 1.37 (H) 0.50 - 01/11/2022 [facility] 1.30 mg/dL 6:54 AM [facility] LABORATORY ([facility]) BUN 18 8 - 25 01/11/2022 [facility] mg/dL 6:54 AM [facility] LABORATORY ([facility]) Glucose 137 (H) 65 - 99 01/11/2022 [facility] mg/dL 6:54 AM [facility] LABORATORY ([facility]) Calcium 8.0 (L) 8.5 - 10.2 01/11/2022 [facility] mg/dL 6:54 AM [facility] LABORATORY ([facility]) Phosphorus 2.6 2.3 - 4.8 01/11/2022 [facility] mg/dL 6:54 AM PDT [facility] LABORATORY ([facility]) Albumin 2.9 (L) 3.5 - 5.0 01/11/2022 [facility] g/dL 6:54 AM PDT [facility] LABORATORY ([facility]) Estimated >60 >=60 01/11/2022 [facility] Glomerular mL/min/1.7 6:54 AM PDT [facility] Filtration Rate 3 m2 LABORATORY (eGFR) ([facility]) Comment: Estimated GFR is calculated [...] / Volume Laterality Blood (Venous) Venipuncture / 01/11/2022 6:16 01/12/20 22 6:22 Unknown AM PDT AM PDT Mustapha Leonard DO BKR LAB BLOOD ORDERABLES Performing Organization Address City/State/ZIP Code Phon e Number [facility] [address] [facility] LABORATORY ([facility]) WAY [phone] (ABNORMAL) POC Glucose (01/10/2022 8:44 PM PDT) athologist Signature Glucose (POC) 134 (H) 65 - 99 01/10/2022 [facility] mg/dL 8:51 PM PDT [facility] LABORATORY ([facility]) Specimen Anatomical Collection Method Collection Time Receive d Time (Source) Location / / Volume Laterality Blood 01/10/2022 8:44 PM 2 8:51 (Capillary) PDT PM PDT Clarice Merino DO BKR LAB POINT OF CARE TEST D OCKED DEVICE UNSOLICITED RESULTS Performing Organization Address City/State/ZIP Code Phon e Number [facility] [address] [facility] LABORATORY ([facility]) WAY [phone] POC Glucose (01/10/2022 5:47 PM PDT) athologist Signature Glucose (POC) 88 65 - 99 01/10/2022 [facility] mg/dL 5:54 PM PDT MAIN LABORATORY ([facility]) Specimen Anatomical Collection Method Collection Time Receive d Time (Source) Location / / Volume Laterality Blood 01/10/2022 5:47 PM 2 5:54 (Capillary) PDT PM PDT Clarice NIETOR LAB POINT OF CARE TEST D OCKED DEVICE UNSOLICITED RESULTS Performing Organization Address City/State/ZIP Code [facility] [address] [place] [facility] ([facility]) [address] [phone] (ABNORMAL) POC Glucose (01/10/2022 5:26 PM PDT) P athologist Signature Glucose (POC) 47 (L) 65 - 99 01/10/2022 [facility] mg/dL 5:32 PM PDT MAIN LABORATORY ([facility]) Specimen Anatomical Collection Method Collection Time Receive d Time (Source) Location / / Volume Laterality Blood 01/10/2022 5:26 PM 2 5:32 (Capillary) PDT PM PDT Clarice NIETOR LAB POINT OF CARE TEST D OCKED DEVICE UNSOLICITED RESULTS Performing Organization Address City/State/ZIP Code Phon e Number [facility] [address] [place] LAB[facility] ([employer]) [address] [phone] (ABNORMAL) POC Glucose (01/10/2022 5:19 PM PDT) P athologist Signature Glucose (POC) 49 (L) 65 - 99 01/10/2022 [facility] mg/dL 5:26 PM PDT MAIN LABORATORY ([facility]) Specimen Anatomical Collection Method Collection Time Receive d Time (Source) Location / / Volume Laterality Blood 01/10/2022 5:19 PM 2 5:26 (Capillary) PDT PM PDT Clarice Merino DO BKR LAB POINT OF CARE TEST D OCKED DEVICE UNSOLICITED RESULTS Performing Organization Address City/State/ZIP Code Phon e Number [facility] [address] [place] LAB[facility] ([place]) [address] [phone] (ABNORMAL) POC Glucose (01/10/2022 12:13 PM PDT) athologist Signature Glucose (POC) 122 (H) 65 - 99 01/11/2022 [facility] mg/dL 3:48 AM PDT [facility] LABORATORY ([facility]) Specimen Anatomical Collection Method Collection Time Receive d Time (Source) Location / / Volume Laterality Blood 01/10/2022 12:13 01/11/2022 3:48 (Capillary) PM PDT AM PDT Clarice NIETOR LAB POINT OF CARE TEST D OCKED DEVICE UNSOLICITED RESULTS Performing Organization Address City/[facility]/ZIP Code Phon e Number [facility] [address] [facility] LAB[facility]ATORY ([facility]) [address] [phone] POC Glucose (01/10/2022 9:18 AM PDT) athologist Signature Glucose (POC) 79 65 - 99 01/10/2022 [facility] mg/dL 9:25 AM [facility] LABORATORY ([facility]) Specimen Anatomical Collection Method Collection Time Receive d Time (Source) Location / / Volume Laterality Blood 01/10/2022 9:18 AM 9:25 (Capillary) PDT AM PDT Clarice NIETOR LAB POINT OF CARE TEST D OCKED DEVICE UNSOLICITED RESULTS Performing Organization Address City/[facility]/ZIP Code Phon e Number [facility] [address] [facility] LAB[facility]ATORY ([facility]) WAY [phone] (ABNORMAL) CBC w/Auto Differential (01/10/2022 6:12 AM PDT) [facility] gist Method Time Signature WBC 11.32 (H) 4.00 - 01/10/2022 [facility] 11.00 6:27 AM PDT [facility] x10E3/uL LABORATORY ([facility]) RBC 4.23 (L) 4.30 - 01/10/2022 [facility] 5.70 6:27 AM PDT [facility] x10E6/uL LABORATORY ([facility]) Hemoglobin 11.7 (L) 13.7 - 01/10/2022 [facility] 16.7 g/dL 6:27 AM PDT [facility] LABORATORY ([facility]) Hematocrit 36.1 (L) 40.0 - 01/10/2022 [facility] 50.0 % 6:27 AM PDT [facility] LABORATORY ([facility]) MCV 85.3 80.0 - 01/10/2022 [facility] 100.0 fL 6:27 AM PDT [facility]IN LABORATORY ([facility]) MCH 27.7 27.0 - 01/10/2022 [facility] 34.0 pg 6:27 AM PDT [facility] MAIN LABORATORY ([facility]) MCHC 32.4 31.5 - 01/10/2022 [facility] 35.7 g/dL 6:27 AM PDT [facility] MAIN LABORATORY ([facility]) RDW 13.0 11.0 - 01/10/2022 [facility] 15.0 % 6:27 AM PDT [facility] MAIN LABORATORY ([facility]) Platelet Count 243 150 - 400 01/10/2022 [facility] x10E3/uL 6:27 AM PDT [facility] MAIN LABORATORY ([facility]) MPV 11.7 9.4 - 01/10/2022 [facility] 12.4 fL 6:27 AM PDT [facility] LABORATORY ([facility]) Neutrophils %, 46.9 40.0 - 01/10/2022 [facility] Automated 80.0 % 6:27 AM PDT [facility] LABORATORY ([facility]) Immature 4.6 (H) 0.0 - 1.0 01/10/2022 [facility] Granulocytes %, % 6:27 AM PDT [facility] Automated LABORATORY ([facility]) Lymphocytes %, 33.9 15.0 - 01/10/2022 [facility] Automated 45.0 % 6:27 AM PDT [facility] LABORATORY ([facility]) Monocytes %, 13.7 (H) 0.0 - 01/10/2022 [facility] Automated 12.0 % 6:27 AM PDT [facility] MAIN LABORATORY ([facility]) Eosinophils %, 0.5 0.0 - 7.0 01/10/2022 [facility]K Automated % 6:27 AM PDT [facility] MAIN LABORATORY ([facility]) Basophils %, 0.4 0.0 - 2.0 01/10/2022 AN[facility]K Automated % 6:27 AM PDT [facility] LABORATORY ([facility]) Neutrophils Abs, 5.31 2.00 - 01/10/2022 [facility] Automated 7.30 6:27 AM PDT [facility] MAIN x10E3/uL LABORATORY ([facility]) Immature 0.52 (H) 0.00 - 01/10/2022 AN[facility]K Granulocyte Abs, 0.05 6:27 AM PDT [facility] Automated x10E3/uL LABORATORY ([facility]) Lymphocytes Abs, 3.84 (H) 1.00 - 01/10/2022 [place] Automated 3.40 6:27 AM PDT [facility] x10E3/uL LABORATORY ([facility]) Monocytes Abs, 1.55 (H) 0.00 - 01/10/2022 [facility] Automated 0.80 6:27 AM PDT [facility] x10E3/uL LABORATORY ([facility]) Eosinophils Abs, 0.06 0.00 - 01/10/2022 [place] Automated 0.50 6:27 AM PDT [facility] x10E3/uL LABORATORY ([facility]) Basophils Abs, 0.04 0.00 - 01/10/2022 [facility] Automated 0.10 6:27 AM PDT [facility] x10E3/uL LABORATORY ([facility]) nRBC %, 0.0 0.0 - 1.0 01/10/2022 [facility] Automated /100 WBC 6:27 AM PDT [facility] LABORATORY ([facility]) nRBC Abs, 0.00 0.00 - 01/10/2022 [facility] Automated 0.01 6:27 AM PDT [facility] x10E3/uL LABORATORY ([facility]) Specimen Anatomical Collection Method / Collection Time Recei pierre Time (Source) Location / Volume Laterality Blood (Venous) Venipuncture / 01/10/2022 6:12 01/11/20 22 6:19 Unknown AM PDT AM PDT Mustapha Leonard DO BKR LAB BLOOD ORDERABLES Performing Organization Address City/State/ZIP Code Phon e Number [facility] [address] [facility] [place] LABORATORY ([facility]) WAY [phone] Magnesium (01/10/2022 6:12 AM PDT) P athologist Signature Magnesium 2.0 1.7 - 2.4 01/10/2022 [place] mg/dL 6:47 AM PDT MAIN LABORATORY ([facility]) Specimen Anatomical Collection Method / Collection Time Recei pierre Time (Source) Location / Volume Laterality Blood (Venous) Venipuncture / 01/10/2022 6:12 01/11/20 22 6:19 Unknown AM PDT AM PDT Mustapha Leonard DO BKR LAB BLOOD ORDERABLES Performing Organization Address City/State/ZIP Code Phon e Number [facility] [address] [facility] [place] LABORATORY ([facility]) WAY [phone] (ABNORMAL) Renal Profile (01/10/2022 6:12 AM PDT) [facility] Method Time Signature Sodium 139 136 - 145 01/10/2022 ANIAK mmol/L 6:58 AM [facility] LABORATORY ([facility]) Potassium 3.8 3.5 - 5.0 01/10/2022 AN[facility]K mmol/L 6:58 AM [facility] LABORATORY ([facility]) Chloride 103 99 - 109 01/10/2022 [facility] mmol/L 6:58 AM [facility] LABORATORY ([facility]) CO2 26 23 - 33 01/10/2022 [facility] mmol/L 6:58 AM [facility] LABORATORY ([facility]) Anion Gap 10 5 - 16 01/10/2022 ANIAK ratio 6:58 AM [facility] LABORATORY ([facility]) Creatinine 1.60 (H) 0.50 - 01/10/2022 AN[facility]K 1.30 mg/dL 6:58 AM [facility] LABORATORY ([facility]) BUN 28 (H) 8 - 25 01/10/2022 [facility] mg/dL 6:58 AM [facility] LABORATORY ([facility]) Glucose 71 65 - 99 01/10/2022 [facility] mg/dL 6:58 AM [facility] LABORATORY ([facility]) Calcium 7.9 (L) 8.5 - 10.2 01/10/2022 [facility] mg/dL 6:58 AM [facility] LABORATORY ([facility]) Phosphorus 2.7 2.3 - 4.8 01/10/2022 [facility] mg/dL 6:58 AM [facility] LABORATORY ([facility]) Albumin 2.8 (L) 3.5 - 5.0 01/10/2022 AN[facility] g/dL 6:58 AM [facility] LABORATORY ([facility]) Estimated 57 (L) >=60 01/10/2022 AN[facility]K Glomerular mL/min/1.7 6:58 AM [facility] Filtration Rate 3 m2 LABORATORY (eGFR) ([facility]) Comment: Estimated GFR is calculated [...] / Volume Laterality Blood (Venous) Venipuncture / 01/10/2022 6:12 01/11/20 6:19 Unknown AM PDT AM PDT Mustapha Leonard DO BKR LAB BLOOD ORDERABLES Performing Organization Address City/[facility]/ZIP Code Phon [facility] Number [facility] [address] [facility] LABORATORY ([place]) WAY [phone] (ABNORMAL) POC Glucose (01/09/2022 8:06 PM PDT) P athologist Signature Glucose (POC) 146 (H) 65 - 99 01/09/2022 ANIAK mg/dL 8:13 PM PDT [facility] LABORATORY ([place]) Specimen Anatomical Collection Method Collection Time Receive d Time (Source) Location / / Volume Laterality Blood 01/09/2022 8:06 PM 2 8:13 (Capillary) PDT PM PDT Clarice Merino DO BKR LAB POINT OF CARE TEST D OCKED DEVICE UNSOLICITED RESULTS Performing Organization Address City/[facility]/ZIP Code Phon e Number [facility] [address] [place] [place] [facility] ([place]) [address] [phone] (ABNORMAL) POC Glucose (01/09/2022 5:11 PM PDT) P athologist Signature Glucose (POC) 123 (H) 65 - 99 01/09/2022 [facility] mg/dL 5:18 PM PDT [facility] LABORATORY ([place]) Specimen Anatomical Collection Method Collection Time Receive d Time (Source) Location / / Volume Laterality Blood 01/09/2022 5:11 PM 2 5:18 (Capillary) PDT PM PDT Clarice Merino DO BKR LAB POINT OF CARE TEST D OCKED DEVICE UNSOLICITED RESULTS Performing Organization Address City/State/ZIP Code Phon e Number [facility] [address] [facility] [place] LABORATORY ([facility]) WAY [phone] (ABNORMAL) POC Glucose (01/09/2022 11:54 AM PDT) P athologist Signature Glucose (POC) 300 (H) 65 - 99 01/09/2022 AN[facility]K mg/dL 12:01 PM PDT [facility] LABORATORY ([facility]) Specimen Anatomical Collection Method Collection Time Receive d Time (Source) Location / / Volume Laterality Blood 01/09/2022 11:54 01/09/2022 (Capillary) AM PDT 12:01 PM PDT Clarice RUIZ LAB POINT OF CARE TEST D OCKED DEVICE UNSOLICITED RESULTS Performing Organization Address City/[facility]/ZIP Code Phon e Number [facility] [address] [facility] [place] LABORATORY ([facility]) WAY [phone] (ABNORMAL) POC Glucose (01/09/2022 7:24 AM PDT) athologist Signature Glucose (POC) 370 (H) 65 - 99 01/09/2022 AN[facility] mg/dL 7:31 AM PDT [facility] LABORATORY ([facility]) Specimen Anatomical Collection Method Collection Time Receive d Time (Source) Location / / Volume Laterality Blood 01/09/2022 7:24 AM 7:31 (Capillary) PDT AM PDT Clarice NIETOR LAB POINT OF CARE TEST D OCKED DEVICE UNSOLICITED RESULTS Performing Organization Address City/State/ZIP Code Phon e Number [facility] [address] [facility] LABORATORY ([facility]) WAY [phone] (ABNORMAL) CBC w/Auto Differential (01/09/2022 5:26 AM PDT) [facility] gist Method Time Signature WBC 11.02 (H) 4.00 - 01/09/2022 ANIAK 11.00 5:43 AM PDT [facility] x10E3/uL LABORATORY ([facility]) RBC 4.10 (L) 4.30 - 01/09/2022 ANIAK 5.70 5:43 AM PDT [facility]IN x10E6/uL LABORATORY ([facility]) Hemoglobin 11.3 (L) 13.7 - 01/09/2022 ANIAK 16.7 g/dL 5:43 AM PDT [facility] LABORATORY ([facility]) Hematocrit 35.0 (L) 40.0 - 01/09/2022 ANIAK 50.0 % 5:43 AM PDT [facility] LABORATORY ([facility]) MCV 85.4 80.0 - 01/09/2022 AN[facility]K 100.0 fL 5:43 AM PDT [facility] LABORATORY ([facility]) MCH 27.6 27.0 - 01/09/2022 ANIAK 34.0 pg 5:43 AM PDT [facility] LABORATORY ([facility]) MCHC 32.3 31.5 - 01/09/2022 ANIAK 35.7 g/dL 5:43 AM PDT [facility] MAIN LABORATORY ([facility]) RDW 12.8 11.0 - 01/09/2022 ANIAK 15.0 % 5:43 AM PDT [facility] MAIN LABORATORY ([facility]) Platelet Count 200 150 - 400 01/09/2022 AN[place] x10E3/uL 5:43 AM PDT [facility] MAIN LABORATORY ([facility]) MPV 12.4 9.4 - 01/09/2022 ANIAK 12.4 fL 5:43 AM PDT [facility] MAIN LABORATORY ([facility]) Neutrophils %, 81.3 (H) 40.0 - 01/09/2022 AN[place] Automated 80.0 % 5:43 AM PDT [facility] MAIN LABORATORY ([facility]) Immature 2.2 (H) 0.0 - 1.0 01/09/2022 AN[facility]K Granulocytes %, % 5:43 AM PDT [facility] Automated LABORATORY ([facility]) Lymphocytes %, 7.2 (L) 15.0 - 01/09/2022 [facility] Automated 45.0 % 5:43 AM PDT [facility] MAIN LABORATORY ([facility]) Monocytes %, 9.1 0.0 - 01/09/2022 [facility] Automated 12.0 % 5:43 AM PDT [facility] MAIN LABORATORY ([facility]) Eosinophils %, 0.0 0.0 - 7.0 01/09/2022 AN[place] Automated % 5:43 AM PDT [facility] MAIN LABORATORY ([facility]) Basophils %, 0.2 0.0 - 2.0 01/09/2022 [facility] Automated % 5:43 AM PDT [facility]IN LABORATORY ([facility]) Neutrophils Abs, 8.97 (H) 2.00 - 01/09/2022 [facility] Automated 7.30 5:43 AM PDT [facility] x10E3/uL LABORATORY ([facility]) Immature 0.24 (H) 0.00 - 01/09/2022 AN[place] Granulocyte Abs, 0.05 5:43 AM PDT [facility] Automated x10E3/uL LABORATORY ([facility]) Lymphocytes Abs, 0.79 (L) 1.00 - 01/09/2022 [facility] Automated 3.40 5:43 AM PDT [facility] x10E3/uL LABORATORY ([facility]) Monocytes Abs, 1.00 (H) 0.00 - 01/09/2022 [facility] Automated 0.80 5:43 AM PDT [facility] x10E3/uL LABORATORY ([facility]) Eosinophils Abs, <0.03 0.00 - 01/09/2022 [facility] Automated 0.50 5:43 AM PDT [facility] x10E3/uL LABORATORY ([facility]) Basophils Abs, <0.03 0.00 - 01/09/2022 [facility] Automated 0.10 5:43 AM PDT [facility] x10E3/uL LABORATORY ([facility]) nRBC %, 0.0 0.0 - 1.0 01/09/2022 AN[facility] Automated /100 WBC 5:43 AM PDT [facility] LABORATORY ([facility]) nRBC Abs, 0.00 0.00 - 01/09/2022 [facility] Automated 0.01 5:43 AM PDT [facility] x10E3/uL LABORATORY ([facility]) Specimen Anatomical Collection Method / Collection Time Recei pierre Time (Source) Location / Volume Laterality Blood (Venous) Venipuncture / 01/09/2022 5:26 01/10/20 22 5:40 Unknown AM PDT AM PDT Mustapha NIETOR LAB BLOOD ORDERABLES Performing Organization Address City/State/ZIP Code Phon e Number [facility] [address] [facility] [place] LABORATORY ([facility]) WAY [phone] Magnesium (01/09/2022 5:26 AM PDT) P athologist Signature Magnesium 2.0 1.7 - 2.4 01/09/2022 [facility] mg/dL 6:12 AM [facility] LABORATORY ([facility]) Specimen Anatomical Collection Method / Collection Time Recei pierre Time (Source) Location / Volume Laterality Blood (Venous) Venipuncture / 01/09/2022 5:26 01/10/20 22 5:41 Unknown AM PDT AM PDT Mustapha Martinez Horacio ALDRICH BKR LAB BLOOD ORDERABLES Performing Organization Address City/State/ZIP Code Phon e Number [facility] [address] [facility] [place] [place] LABORATORY ([facility]) WAY [phone] (ABNORMAL) Renal Profile (01/09/2022 5:26 AM PDT) [facility] gist Method Time Signature Sodium 132 (L) 136 - 145 01/09/2022 ANIAK mmol/L 6:12 AM [facility] LABORATORY ([facility]) Potassium 4.5 3.5 - 5.0 01/09/2022 AN[place] mmol/L 6:12 AM [facility] LABORATORY ([facility]) Chloride 99 99 - 109 01/09/2022 [facility] mmol/L 6:12 AM [facility] LABORATORY ([facility]) CO2 22 (L) 23 - 33 01/09/2022 [facility] mmol/L 6:12 AM [facility] LABORATORY ([facility]) Anion Gap 11 5 - 16 01/09/2022 AN[place] ratio 6:12 AM [facility] LABORATORY ([facility]) Creatinine 1.65 (H) 0.50 - 01/09/2022 AN[place]K 1.30 mg/dL 6:12 AM [facility] LABORATORY ([facility]) BUN 42 (H) 8 - 25 01/09/2022 [facility] mg/dL 6:12 AM [facility] LABORATORY ([facility]) Glucose 453 (H) 65 - 99 01/09/2022 [facility] mg/dL 6:12 AM [facility] LABORATORY ([facility]) Calcium 7.9 (L) 8.5 - 10.2 01/09/2022 [facility] mg/dL 6:12 AM [facility] LABORATORY ([facility]) Phosphorus 3.5 2.3 - 4.8 01/09/2022 [facility] mg/dL 6:12 AM [facility] LABORATORY ([facility]) Albumin 2.9 (L) 3.5 - 5.0 01/09/2022 [facility] g/dL 6:12 AM PDT [facility] LABORATORY ([facility]) Estimated 55 (L) >=60 01/09/2022 AN[facility]K Glomerular mL/min/1.7 6:12 AM [facility] Filtration Rate 3 m2 LABORATORY (eGFR) ([facility]) Comment: Estimated GFR is calculated [...] / Volume Laterality Blood (Venous) Venipuncture / 01/09/2022 5:26 01/10/20 22 5:41 Unknown AM PDT AM PDT Mustapha Leonard DO BKR LAB BLOOD ORDERABLES Performing Organization Address City/State/ZIP Code Phon e Number [facility] [address] [facility] LABORATORY ([facility]) WAY [phone] (ABNORMAL) POC Glucose (01/08/2022 9:09 PM PDT) athologist Signature Glucose (POC) 292 (H) 65 - 99 01/08/2022 [facility] mg/dL 9:16 PM PDT [facility] LABORATORY ([facility]) Specimen Anatomical Collection Method Collection Time Receive d Time (Source) Location / / Volume Laterality Blood 01/08/2022 9:09 PM 2 9:15 (Capillary) PDT PM PDT Clarice Merino DO BKR LAB POINT OF CARE TEST D OCKED DEVICE UNSOLICITED RESULTS Performing Organization Address City/State/ZIP Code Phon e Number [facility] [address] [facility] LABORATORY ([facility]) WAY [phone] (ABNORMAL) POC Glucose (01/08/2022 4:18 PM PDT) P athologist Signature Glucose (POC) 349 (H) 65 - 99 01/08/2022 [facility] mg/dL 4:25 PM PDT [facility] LABORATORY ([facility]) Specimen Anatomical Collection Method Collection Time Receive d Time (Source) Location / / Volume Laterality Blood 01/08/2022 4:18 PM 2 4:25 (Capillary) PDT PM PDT Clarice Merino DO KAYLANR LAB POINT OF CARE TEST D OCKED DEVICE UNSOLICITED RESULTS Performing Organization Address City/[facility]/ZIP Code Phon [facility] Number [facility] [address] [facility] [place] LABORATORY ([facility]) WAY [phone] (ABNORMAL) POC Glucose (01/08/2022 11:03 AM PDT) P athologist Signature Glucose (POC) 204 (H) 65 - 99 01/08/2022 [facility] mg/dL 11:09 AM PDT [facility] LABORATORY ([facility]) Specimen Anatomical Collection Method Collection Time Receive d Time (Source) Location / / Volume Laterality Blood 01/08/2022 11:03 01/08/2022 (Capillary) AM PDT 11:09 AM PDT Clarice Merino DO BKR LAB POINT OF CARE TEST D OCKED DEVICE UNSOLICITED RESULTS Performing Organization Address [facility]/ZIP Code Phon [facility] Number [facility] [address] [place] LAB[facility] ([facility]) WAY [phone] (ABNORMAL) POC Glucose (01/08/2022 7:23 AM PDT) P athologist Signature Glucose (POC) 190 (H) 65 - 99 01/08/2022 [facility] mg/dL 7:29 AM PDT [facility] LABORATORY ([facility]) Specimen Anatomical Collection Method Collection Time Receive d Time (Source) Location / / Volume Laterality Blood 01/08/2022 7:23 AM 2 7:29 (Capillary) PDT AM PDT Clarice Merino DO BKR LAB POINT OF CARE TEST D OCKED DEVICE UNSOLICITED RESULTS Performing Organization Address City/[facility]/ZIP Code Phon e Number [facility] [address] [facility] [place] LABORATORY ([facility]) WAY [phone] (ABNORMAL) CBC w/Auto Differential (01/08/2022 5:07 AM PDT) [facility] gist Method Time Signature WBC 10.50 4.00 - 01/08/2022 ANIAK 11.00 5:52 AM PDT [facility] x10E3/uL LABORATORY ([facility]) RBC 4.03 (L) 4.30 - 01/08/2022 ANIAK 5.70 5:52 AM PDT [facility] x10E6/uL LABORATORY ([facility]) Hemoglobin 11.2 (L) 13.7 - 01/08/2022 ANIAK 16.7 g/dL 5:52 AM PDT [facility] LABORATORY ([facility]) Hematocrit 34.6 (L) 40.0 - 01/08/2022 ANIAK 50.0 % 5:52 AM PDT [facility] LABORATORY ([facility]) MCV 85.9 80.0 - 01/08/2022 AN[place] 100.0 fL 5:52 AM PDT [facility] LABORATORY ([facility]) MCH 27.8 27.0 - 01/08/2022 AN[facility]K 34.0 pg 5:52 AM PDT [facility] LABORATORY ([facility]) MCHC 32.4 31.5 - 01/08/2022 AN[facility]K 35.7 g/dL 5:52 AM PDT [facility] LABORATORY ([facility]) RDW 13.0 11.0 - 01/08/2022 AN[facility]K 15.0 % 5:52 AM PDT [facility] LABORATORY ([facility]) Platelet Count 172 150 - 400 01/08/2022 AN[facility] x10E3/uL 5:52 AM PDT [facility] LABORATORY ([facility]) MPV 13.3 (H) 9.4 - 01/08/2022 AN[facility]K 12.4 fL 5:52 AM PDT [facility] LABORATORY ([facility]) Neutrophils %, 86.9 (H) 40.0 - 01/08/2022 [facility] Automated 80.0 % 5:52 AM PDT [facility] LABORATORY ([facility]) Immature 1.0 0.0 - 1.0 01/08/2022 [facility] Granulocytes %, % 5:52 AM PDT [facility]IN Automated LABORATORY ([facility]) Lymphocytes %, 5.9 (L) 15.0 - 01/08/2022 [facility] Automated 45.0 % 5:52 AM PDT [facility] LABORATORY ([facility]) Monocytes %, 6.1 0.0 - 01/08/2022 [facility] Automated 12.0 % 5:52 AM PDT [facility] LABORATORY ([facility]) Eosinophils %, 0.0 0.0 - 7.0 01/08/2022 [facility] Automated % 5:52 AM PDT [facility] LABORATORY ([facility]) Basophils %, 0.1 0.0 - 2.0 01/08/2022 [facility] Automated % 5:52 AM [facility] LABORATORY ([facility]) Neutrophils Abs, 9.12 (H) 2.00 - 01/08/2022 [facility] Automated 7.30 5:52 AM PDT [facility] x10E3/uL LABORATORY ([facility]) Immature 0.11 (H) 0.00 - 01/08/2022 [facility] Granulocyte Abs, 0.05 5:52 AM [facility] Automated x10E3/uL LABORATORY ([facility]) Lymphocytes Abs, 0.62 (L) 1.00 - 01/08/2022 [place] Automated 3.40 5:52 AM PDT [facility] x10E3/uL LABORATORY ([facility]) Monocytes Abs, 0.64 0.00 - 01/08/2022 [facility] Automated 0.80 5:52 AM PDT [facility] x10E3/uL LABORATORY ([facility]) Eosinophils Abs, <0.03 0.00 - 01/08/2022 [facility] Automated 0.50 5:52 AM [facility] x10E3/uL LABORATORY ([facility]) Basophils Abs, <0.03 0.00 - 01/08/2022 [facility] Automated 0.10 5:52 AM [facility] x10E3/uL LABORATORY ([facility]) nRBC %, 0.0 0.0 - 1.0 01/08/2022 [facility] Automated /100 WBC 5:52 AM [facility] LABORATORY ([facility]) nRBC Abs, 0.00 0.00 - 01/08/2022 [facility] Automated 0.01 5:52 AM [facility] x10E3/uL LABORATORY ([facility]) Specimen Anatomical Collection Method / Collection Time Recei pierre Time (Source) Location / Volume Laterality Blood (Catheter, Venipuncture / 01/08/2022 5:07 2021 5:22 [place] Unknown AM PDT AM PDT (CVC)) Mustapha RUIZ LAB BLOOD ORDERABLES Performing Organization Address City/State/ZIP Code Phon e Number [facility] [address] [facility] LABORATORY ([facility]) [address] [phone] Magnesium (01/08/2022 5:07 AM PDT) P athologist Signature Magnesium 2.2 1.7 - 2.4 01/08/2022 [facility] mg/dL 6:05 AM [facility] LABORATORY ([facility]) Specimen Anatomical Collection Method / Collection Time Recei peirre Time (Source) Location / Volume Laterality Blood (Catheter, Venipuncture / 01/08/2022 5:07 2021 5:22 [place] Unknown AM PDT AM PDT (CVC)) Mustapha Leonard DO BKR LAB BLOOD ORDERABLES Performing Organization Address City/State/ZIP Code Phon e Number [facility] [address] [facility] [place] LABORATORY ([facility]) WAY [phone] (ABNORMAL) Renal Profile (01/08/2022 5:07 AM PDT) Patholo gist Method Time Signature Sodium 136 136 - 145 01/08/2022 [facility] mmol/L 6:05 AM [facility] LABORATORY ([facility]) Potassium 4.3 3.5 - 5.0 01/08/2022 [facility] mmol/L 6:05 AM [facility] LABORATORY ([facility]) Chloride 102 99 - 109 01/08/2022 [facility] mmol/L 6:05 AM [facility] LABORATORY ([facility]) CO2 24 23 - 33 01/08/2022 [facility] mmol/L 6:05 AM [facility] LABORATORY ([facility]) Anion Gap 10 5 - 16 01/08/2022 [facility] ratio 6:05 AM [facility] LABORATORY ([facility]) Creatinine 1.85 (H) 0.50 - 01/08/2022 [facility] 1.30 mg/dL 6:05 AM [facility] LABORATORY ([facility]) BUN 43 (H) 8 - 25 01/08/2022 ANIAK mg/dL 6:05 AM [facility] ([facility]) Glucose 229 (H) 65 - 99 01/08/2022 ANIAK mg/dL 6:05 AM [facility] ([facility]) Calcium 8.2 (L) 8.5 - 10.2 01/08/2022 ANIAK mg/dL 6:05 AM [facility] ([facility]) Phosphorus 3.8 2.3 - 4.8 01/08/2022 ANIAK mg/dL 6:05 AM [facility] ([facility]) Albumin 2.9 (L) 3.5 - 5.0 01/08/2022 ANIAK g/dL 6:05 AM [facility] ([facility]) Estimated 48 (L) >=60 01/08/2022 ANIAK Glomerular mL/min/1.7 6:05 AM [facility] Filtration Rate 3 m2 LABORATORY (eGFR) ([facility]) Comment: Estimated GFR is calculated [...] / Volume Laterality Blood (Catheter, Venipuncture / 01/08/2022 5:07 2021 5:22 [place] Line Unknown AM PDT AM PDT (CVC)) Mustapha Leonard DO BKR LAB BLOOD ORDERABLES Performing Organization Address City/State/ZIP Code Phon e Number [address] [place], [place] LAB[facility] ([facility]) WAY [phone] (ABNORMAL) POC Glucose (01/07/2022 9:23 PM PDT) P athologist Signature Glucose (POC) 220 (H) 65 - 99 01/07/2022 ANIAK mg/dL 9:29 PM PDT [facility] ([facility]) Specimen Anatomical Collection Method Collection Time Receive d Time (Source) Location / / Volume Laterality Blood 01/07/2022 9:23 PM 9:29 (Capillary) PDT PM PDT Clarice NIETOR LAB POINT OF CARE TEST D OCKED DEVICE UNSOLICITED RESULTS Performing Organization Address City/State/ZIP Code Phon e Number [facility] [address] [place] [facility] ([facility]) WAY [phone] (ABNORMAL) POC Glucose (01/07/2022 7:33 PM PDT) P athologist Signature Glucose (POC) 190 (H) 65 - 99 01/07/2022 ANIAK mg/dL 7:40 PM PDT [facility] ([facility]) Specimen Anatomical Collection Method Collection Time Receive d Time (Source) Location / / Volume Laterality Blood 01/07/2022 7:33 PM 2 7:40 (Capillary) PDT PM PDT Clarice Merino DO BKR LAB POINT OF CARE TEST D OCKED DEVICE UNSOLICITED RESULTS Performing Organization Address City/State/ZIP Code Phon e Number [facility] [address], [place] LABORATORY ([facility]) WAY [phone] (ABNORMAL) POC Glucose (01/07/2022 4:31 PM PDT) P athologist Signature Glucose (POC) 212 (H) 65 - 99 01/07/2022 ANIAK mg/dL 4:38 PM PDT [facility] LABORATORY ([facility]) Specimen Anatomical Collection Method Collection Time Receive d Time (Source) Location / / Volume Laterality Blood 01/07/2022 4:31 PM 2 4:38 (Capillary) PDT PM PDT Andrews NIETOR LAB POINT OF CARE TEST D OCKED DEVICE UNSOLICITED RESULTS Performing Organization Address City/State/ZIP Code Phon e Number [facility] [address], [place] LAB[place] ([facility]) WAY [phone] (ABNORMAL) POC Glucose (01/07/2022 11:35 AM PDT) P athologist Signature Glucose (POC) 114 (H) 65 - 99 01/07/2022 ANIAK mg/dL 11:43 AM PDT [facility] LABORATORY ([facility]) Specimen Anatomical Collection Method Collection Time Receive d Time (Source) Location / / Volume Laterality Blood 01/07/2022 11:35 01/07/2022 (Capillary) AM PDT 11:43 AM PDT Andrews Choe DO BKR LAB POINT OF CARE TEST D OCKED DEVICE UNSOLICITED RESULTS Performing Organization Address City/[facility]/ZIP Code Phon [facility] [address] [place] ([employer]) [address] [phone] POC Glucose (01/07/2022 8:26 AM PDT) P athologist Signature Glucose (POC) 80 65 - 99 01/07/2022 [facility] mg/dL 8:39 AM PDT MAIN LABORATORY ([facility]) Specimen Anatomical Collection Method Collection Time Receive d Time (Source) Location / / Volume Laterality Blood 01/07/2022 8:26 AM 8:39 (Capillary) PDT AM PDT Zachary Roe MD, PhD BKR LAB POINT OF CARE TEST D OCKED DEVICE UNSOLICITED RESULTS Performing Organization Address [facility]/ZIP Code Phon [facility] [address] ([place]) [address] [phone] (ABNORMAL) POC Glucose (01/07/2022 6:56 AM PDT) P athologist Signature Glucose (POC) 106 (H) 65 - 99 01/07/2022 ANIAK mg/dL 7:03 AM PDT [facility] MAIN LABORATORY ([employer]) Specimen Anatomical Collection Method Collection Time Receive d Time (Source) Location / / Volume Laterality Blood 01/07/2022 6:56 AM 2 7:03 (Capillary) PDT AM PDT Zachary Roe MD, PhD BKR LAB POINT OF CARE TEST D OCKED DEVICE UNSOLICITED RESULTS Performing Organization Address City/[facility]/ZIP Code Phon e [facility] [address] [place] ([employer]) [address] [phone] (ABNORMAL) POC Glucose (01/07/2022 6:37 AM PDT) P athologist Signature Glucose (POC) 47 (L) 65 - 99 01/07/2022 [facility] mg/dL 6:51 AM PDT MAIN LABORATORY ([employer]) Specimen Anatomical Collection Method Collection Time Receive d Time (Source) Location / / Volume Laterality Blood 01/07/2022 6:37 AM 6:51 (Capillary) PDT AM PDT Zachary Roe MD, PhD BKR LAB POINT OF CARE TEST D OCKED DEVICE UNSOLICITED RESULTS Performing Organization Address City/[facility]/ZIP Code Phon e Number [facility] [address], [place] LAB[place] ([facility]) WAY [phone] Manual differential (01/07/2022 3:20 AM PDT) [facility] Method Time Signature Platelet Confirm 01/07/2022 ANIAK Estimate Automated 4:03 AM [facility] Count LABORATORY ([facility]) RBC Morphology Confirm Red 01/07/2022 ANIAK Cell Indicies 4:03 AM [facility] LABORATORY ([facility]) Specimen Anatomical Collection Method / Collection Time Recei pierre Time (Source) Location / Volume Laterality Blood (Venous) Venipuncture / 01/07/2022 3:20 01/08/20 3:25 Unknown AM PDT AM PDT Mustapha Leonard DO BKR LAB BLOOD ORDERABLES Performing Organization Address [facility]/ZIP Code Phon e Number [facility] [address] [facility], [place] ([facility]) WAY [phone] (ABNORMAL) CBC w/Auto Differential (01/07/2022 3:20 AM PDT) [facility] 3D Product Imaging Method Time Signature WBC 10.28 4.00 - 01/07/2022 ANIAK 11.00 4:03 AM PDT [facility] x10E3/uL LABORATORY ([facility]) RBC 4.22 (L) 4.30 - 01/07/2022 ANIAK 5.70 4:03 AM PDT [facility] x10E6/uL LABORATORY ([facility]) Hemoglobin 11.7 (L) 13.7 - 01/07/2022 ANIAK 16.7 g/dL 4:03 AM [facility] LABORATORY ([facility]) Hematocrit 36.0 (L) 40.0 - 01/07/2022 ANIAK 50.0 % 4:03 AM [facility] LABORATORY ([facility]) MCV 85.3 80.0 - 01/07/2022 ANIAK 100.0 fL 4:03 AM PDT [facility] LABORATORY ([facility]) MCH 27.7 27.0 - 01/07/2022 ANIAK 34.0 pg 4:03 AM PDT [facility] LABORATORY ([facility]) MCHC 32.5 31.5 - 01/07/2022 ANIAK 35.7 g/dL 4:03 AM [facility] LABORATORY ([facility]) RDW 13.2 11.0 - 01/07/2022 ANIAK 15.0 % 4:03 AM [facility] LABORATORY ([facility]) Platelet Count 184 150 - 400 01/07/2022 ANIAK x10E3/uL 4:03 AM PDT [facility] LABORATORY ([facility]) MPV 12.7 (H) 9.4 - 01/07/2022 ANIAK 12.4 fL 4:03 AM [facility] LABORATORY ([facility]) Neutrophils %, 86.5 (H) 40.0 - 01/07/2022 ANIAK Automated 80.0 % 4:03 AM [facility] LABORATORY ([facility]) Immature 0.7 0.0 - 1.0 01/07/2022 ANIAK Granulocytes %, % 4:03 AM [facility] Automated LABORATORY ([facility]) Lymphocytes %, 6.4 (L) 15.0 - 01/07/2022 ANIAK Automated 45.0 % 4:03 AM [facility] LABORATORY ([facility]) Monocytes %, 6.3 0.0 - 01/07/2022 ANIAK Automated 12.0 % 4:03 AM [facility] LABORATORY ([facility]) Eosinophils %, 0.0 0.0 - 7.0 01/07/2022 ANIAK Automated % 4:03 AM [facility] LABORATORY ([facility]) Basophils %, 0.1 0.0 - 2.0 01/07/2022 ANIAK Automated % 4:03 AM [facility] LABORATORY ([facility]) Neutrophils Abs, 8.89 (H) 2.00 - 01/07/2022 ANIAK Automated 7.30 4:03 AM PDT [facility] x10E3/uL LABORATORY ([facility]) Immature 0.07 (H) 0.00 - 01/07/2022 ANIAK Granulocyte Abs, 0.05 4:03 AM PDT [facility] Automated x10E3/uL LABORATORY ([facility]) Lymphocytes Abs, 0.66 (L) 1.00 - 01/07/2022 ANIAK Automated 3.40 4:03 AM PDT [facility] x10E3/uL LABORATORY ([facility]) Monocytes Abs, 0.65 0.00 - 01/07/2022 ANIAK Automated 0.80 4:03 AM PDT [facility] x10E3/uL LABORATORY ([facility]) Eosinophils Abs, <0.03 0.00 - 01/07/2022 ANIAK Automated 0.50 4:03 AM PDT [facility] x10E3/uL LABORATORY ([facility]) Basophils Abs, <0.03 0.00 - 01/07/2022 ANIAK Automated 0.10 4:03 AM PDT [facility] x10E3/uL LABORATORY ([facility]) nRBC %, 0.0 0.0 - 1.0 01/07/2022 ANIAK Automated /100 WBC 4:03 AM PDT [facility] LABORATORY ([facility]) nRBC Abs, 0.00 0.00 - 01/07/2022 ANIAK Automated 0.01 4:03 AM PDT [facility] x10E3/uL LABORATORY ([facility]) Specimen Anatomical Collection Method / Collection Time Recei pierre Time (Source) Location / Volume Laterality Blood (Venous) Venipuncture / 01/07/2022 3:20 01/08/20 22 3:25 Unknown AM PDT AM PDT Mustapha RUIZ LAB BLOOD ORDERABLES Performing Organization Address City/State/ZIP Code Phon e Number [facility] [address] [facility] [place], [place] LABORATORY ([employer]) [address] [phone] Magnesium (01/07/2022 3:20 AM PDT) P athologist Signature Magnesium 2.4 1.7 - 2.4 01/07/2022 [employer] mg/dL 4:07 AM PDT [facility] LABORATORY ([facility]) Specimen Anatomical Collection Method / Collection Time Recei pierre Time (Source) Location / Volume Laterality Blood (Venous) Venipuncture / 01/07/2022 3:20 01/08/20 22 3:38 Unknown AM PDT AM PDT Mustapha Leonard DO BKR LAB BLOOD ORDERABLES Performing Organization Address City/State/ZIP Code Phon e Number [facility] [address] [facility] [place] [facility] ([facility]) WAY [phone] (ABNORMAL) Renal Profile (01/07/2022 3:20 AM PDT) [facility] Method Time Signature Sodium 142 136 - 145 01/07/2022 ANIAK mmol/L 4:07 AM [facility] LABORATORY ([facility]) Potassium 4.0 3.5 - 5.0 01/07/2022 ANIAK mmol/L 4:07 AM [facility] LABORATORY ([facility]) Chloride 106 99 - 109 01/07/2022 ANIAK mmol/L 4:07 AM [facility] LABORATORY ([facility]) CO2 25 23 - 33 01/07/2022 ANIAK mmol/L 4:07 AM [facility] LABORATORY ([facility]) Anion Gap 11 5 - 16 01/07/2022 ANIAK ratio 4:07 AM [facility] LABORATORY ([facility]) Creatinine 1.92 (H) 0.50 - 01/07/2022 ANIAK 1.30 mg/dL 4:07 AM [facility] LABORATORY ([facility]) BUN 42 (H) 8 - 25 01/07/2022 ANIAK mg/dL 4:07 AM [facility] LABORATORY ([facility]) Glucose 63 (L) 65 - 99 01/07/2022 ANIAK mg/dL 4:07 AM [facility] LABORATORY ([facility]) Calcium 8.5 8.5 - 10.2 01/07/2022 ANIAK mg/dL 4:07 AM [facility] LABORATORY ([facility]) Phosphorus 3.8 2.3 - 4.8 01/07/2022 ANIAK mg/dL 4:07 AM [facility] LABORATORY ([facility]) Albumin 2.9 (L) 3.5 - 5.0 01/07/2022 ANIAK g/dL 4:07 AM [facility] LABORATORY ([facility]) Estimated 46 (L) >=60 01/07/2022 ANIAK Glomerular mL/min/1.7 4:07 AM [facility] Filtration Rate 3 m2 LABORATORY (eGFR) ([facility]) Comment: Estimated GFR is calculated [...] / Volume Laterality Blood (Venous) Venipuncture / 01/07/2022 3:20 01/08/20 3:38 Unknown AM PDT AM PDT Mustapha Leonard DO BKR LAB BLOOD ORDERABLES Performing Organization Address City/State/ZIP Code Phon e Number [facility] [address] [facility], [place] LABORATORY ([place]) [address] [phone] POC Glucose (01/06/2022 11:48 PM PDT) P athologist Signature Glucose (POC) 99 65 - 99 01/06/2022 [facility] mg/dL 11:55 PM PDT MAIN LABORATORY ([facility]) Specimen Anatomical Collection Method Collection Time Receive d Time (Source) Location / / Volume Laterality Blood 01/06/2022 11:48 01/06/2022 (Capillary) PM PDT 11:55 PM PDT Zachary Roe MD, PhD BKR LAB POINT OF CARE TEST D OCKED DEVICE UNSOLICITED RESULTS Performing Organization Address City/[facility]/ZIP Code Phon e [facility] [address] [facility] [place], [place] LAB[place]ORY ([place]) [address] [phone] (ABNORMAL) POC Glucose (01/06/2022 8:30 PM PDT) P athologist Signature Glucose (POC) 138 (H) 65 - 99 01/06/2022 ANIAK mg/dL 8:46 PM PDT HEALTH MAIN LABORATORY ([facility]) Specimen Anatomical Collection Method Collection Time Receive d Time (Source) Location / / Volume Laterality Blood 01/06/2022 8:30 PM 8:46 (Capillary) PDT PM PDT Zachary Roe MD, PhD BKR LAB POINT OF CARE TEST D OCKED DEVICE UNSOLICITED RESULTS Performing Organization Address City/State/ZIP Code Phon e Number [facility] [address] ([place]) [address] [phone] (ABNORMAL) POC Glucose (01/06/2022 5:02 PM PDT) P athologist Signature Glucose (POC) 134 (H) 65 - 99 01/06/2022 ANIAK mg/dL 5:09 PM PDT [facility] LABORATORY ([facility]) Specimen Anatomical Collection Method Collection Time Receive d Time (Source) Location / / Volume Laterality Blood 01/06/2022 5:02 PM 2 5:09 (Capillary) PDT PM PDT Zachary Roe MD, PhD BKR LAB POINT OF CARE TEST D OCKED DEVICE UNSOLICITED RESULTS Performing Organization Address City/State/ZIP Code Phon e Number [facility] [address] [facility] ([facility]) WAY [phone] (ABNORMAL) POC Glucose (01/06/2022 11:33 AM PDT) P athologist Signature Glucose (POC) 126 (H) 65 - 99 01/06/2022 ANIAK mg/dL 11:41 AM PDT [facility] LABORATORY ([facility]) Specimen Anatomical Collection Method Collection Time Receive d Time (Source) Location / / Volume Laterality Blood 01/06/2022 11:33 01/06/2022 (Capillary) AM PDT 11:41 AM PDT Zachary Roe MD, PhD KAYLANR LAB POINT OF CARE TEST D OCKED DEVICE UNSOLICITED RESULTS Performing Organization Address City/State/ZIP Code Phon e Number [facility] [address] [facility] [place] ([facility]) WAY [phone] (ABNORMAL) POC Glucose (01/06/2022 7:36 AM PDT) athologist Signature Glucose (POC) 139 (H) 65 - 99 01/06/2022 ANIAK mg/dL 7:44 AM PDT [facility] LABORATORY ([facility]) Specimen Anatomical Collection Method Collection Time Receive d Time (Source) Location / / Volume Laterality Blood 01/06/2022 7:36 AM 2 7:44 (Capillary) PDT AM PDT Zachary Roe MD, PhD BKR LAB POINT OF CARE TEST D OCKED DEVICE UNSOLICITED RESULTS Performing Organization Address City/State/ZIP Code Phon e Number [facility] [address] [facility] LAB[place] ([facility]) WAY [phone] Potassium (01/06/2022 6:54 AM PDT) P athologist Signature Potassium 4.1 3.5 - 5.0 01/06/2022 [facility] mmol/L 7:53 AM [facility] MAIN LABORATORY ([facility]) Specimen Anatomical Collection Method / Collection Time Recei pierre Time (Source) Location / Volume Laterality Blood (Catheter, Venipuncture / 01/06/2022 6:54 2021 6:57 Central Line Unknown AM PDT AM PDT (CVC)) Zachary Roe MD, PhD BKR LAB BLOOD ORDERABLES Performing Organization Address City/State/ZIP Code Phon e Number [facility] [address] [facility], [place] LAB[place] ([facility]) WAY [phone] (ABNORMAL) CBC w/Auto Differential (01/06/2022 6:00 AM PDT) Patholo gist Method Time Signature WBC 12.90 (H) 4.00 - 01/06/2022 ANIAK 11.00 6:32 AM [facility] x10E3/uL LABORATORY ([facility]) RBC 4.03 (L) 4.30 - 01/06/2022 ANIAK 5.70 6:32 AM [facility] x10E6/uL LABORATORY ([facility]) Hemoglobin 11.3 (L) 13.7 - 01/06/2022 ANIAK 16.7 g/dL 6:32 AM [facility] LABORATORY ([facility]) Hematocrit 35.6 (L) 40.0 - 01/06/2022 ANIAK 50.0 % 6:32 AM [facility] LABORATORY ([facility]) MCV 88.3 80.0 - 01/06/2022 ANIAK 100.0 fL 6:32 AM [facility] LABORATORY ([facility]) MCH 28.0 27.0 - 01/06/2022 ANIAK 34.0 pg 6:32 AM [facility] LABORATORY ([facility]) MCHC 31.7 31.5 - 01/06/2022 ANIAK 35.7 g/dL 6:32 AM [facility] LABORATORY ([facility]) RDW 13.5 11.0 - 01/06/2022 ANIAK 15.0 % 6:32 AM PDT HEALTH MAIN LABORATORY ([facility]) Platelet Count 108 (L) 150 - 400 01/06/2022 ANIAK x10E3/uL 6:32 AM PDT [facility] MAIN LABORATORY ([facility]) MPV 13.6 (H) 9.4 - 01/06/2022 ANIAK 12.4 fL 6:32 AM PDT [facility] MAIN LABORATORY ([facility]) Neutrophils %, 89.6 (H) 40.0 - 01/06/2022 ANIAK Automated 80.0 % 6:32 AM PDT [facility] MAIN LABORATORY ([facility]) Immature 0.7 0.0 - 1.0 01/06/2022 ANIAK Granulocytes %, % 6:32 AM PDT [facility] Automated LABORATORY ([facility]) Lymphocytes %, 4.3 (L) 15.0 - 01/06/2022 ANIAK Automated 45.0 % 6:32 AM PDT [facility] LABORATORY ([facility]) Monocytes %, 5.3 0.0 - 01/06/2022 ANIAK Automated 12.0 % 6:32 AM PDT [facility] LABORATORY ([facility]) Eosinophils %, 0.0 0.0 - 7.0 01/06/2022 ANIAK Automated % 6:32 AM PDT [facility] LABORATORY ([facility]) Basophils %, 0.1 0.0 - 2.0 01/06/2022 ANIAK Automated % 6:32 AM PDT [facility] LABORATORY ([facility]) Neutrophils Abs, 11.56 (H) 2.00 - 01/06/2022 ANIA[facility] Automated 7.30 6:32 AM PDT [facility] x10E3/uL LABORATORY ([facility]) Immature 0.09 (H) 0.00 - 01/06/2022 ANIAK Granulocyte Abs, 0.05 6:32 AM PDT [facility] Automated x10E3/uL LABORATORY ([facility]) Lymphocytes Abs, 0.56 (L) 1.00 - 01/06/2022 ANIAK Automated 3.40 6:32 AM PDT HEALTH MAIN x10E3/uL LABORATORY ([facility]) Monocytes Abs, 0.68 0.00 - 01/06/2022 ANIAK Automated 0.80 6:32 AM PDT [facility] MAIN x10E3/uL LABORATORY ([facility]) Eosinophils Abs, <0.03 0.00 - 01/06/2022 ANIA[facility] Automated 0.50 6:32 AM PDT [facility] x10E3/uL LABORATORY ([facility]) Basophils Abs, <0.03 0.00 - 01/06/2022 AN[facility] Automated 0.10 6:32 AM PDT [facility] x10E3/uL LABORATORY ([facility]) nRBC %, 0.2 0.0 - 1.0 01/06/2022 ANIA[facility] Automated /100 WBC 6:32 AM PDT [facility] LABORATORY ([facility]) nRBC Abs, 0.02 (H) 0.00 - 01/06/2022 [facility] Automated 0.01 6:32 AM PDT [facility] x10E3/uL LABORATORY ([facility]) Specimen Anatomical Collection Method / Collection Time Recei pierre Time (Source) Location / Volume Laterality Blood (Catheter, Venipuncture / 01/06/2022 6:00 2021 6:03 Central Line Unknown AM PDT AM PDT (CVC)) Mustapha RUIZ LAB BLOOD ORDERABLES Performing Organization Address City/State/ZIP Code Phon e Number [facility] [address] [facility], [place] LABORATORY ([facility]) WAY [phone] Magnesium (01/06/2022 6:00 AM PDT) P athologist Signature Magnesium 2.4 1.7 - 2.4 [facility] 6:41 AM PDT MAIN LABORATORY ([facility]) Specimen Anatomical Collection Method / Collection Time Recei pierre Time (Source) Location / Volume Laterality Blood (Catheter, Venipuncture / 01/06/2022 6:00 2021 6:03 Central Line Unknown AM PDT AM PDT (CVC)) Mustapha RUIZ LAB BLOOD ORDERABLES Performing Organization Address City/State/ZIP Code Phon e Number [facility] [address] [facility] [place] [facility] ([facility]) WAY [phone] (ABNORMAL) Renal Profile (01/06/2022 6:00 AM PDT) P athologist Signature Sodium 139 136 - 145 01/06/2022 [facility] mmol/L 6:46 AM PDT MAIN LABORATORY ([facility]) Potassium 01/06/2022 [facility] 6:46 AM PDT MAIN LABORATORY ([facility]) Comment: Hemolytic sample causing result error; u nable to report. Called to Cheryl Rowland. Recollection requested. Nurse will rec ollect. Chloride 105 99 - 109 mmol/L 01/06/2022 6:46 AM [facility] PDT MAIN LABORATORY ([facility]) CO2 22 (L) 23 - 33 mmol/L 01/06/2022 6:46 AM [facility] PDT MAIN LABORATORY ([facility]) Anion Gap 12 5 - 16 ratio 01/06/2022 6:46 AM [facility] PDT MAIN LABORATORY ([facility]) Creatinine 2.15 (H) 0.50 - 1.30 01/06/2022 6:46 AM [facility] mg/dL PDT MAIN LABORATORY ([facility]) BUN 42 (H) 8 - 25 mg/dL 01/06/2022 6:46 AM [facility] PDT MAIN LABORATORY ([facility]) Glucose 136 (H) 65 - 99 mg/dL 01/06/2022 6:46 AM [facility] PDT MAIN LABORATORY ([facility]) Calcium 8.5 8.5 - 10.2 01/06/2022 6:46 AM [facility] mg/dL PDT MAIN LABORATORY ([facility]) Phosphorus 3.8 2.3 - 4.8 mg/dL 01/06/2022 6:46 AM [facility] PDT MAIN LABORATORY ([facility]) Albumin 3.0 (L) 3.5 - 5.0 g/dL 01/06/2022 6:46 AM [facility] PDT MAIN LABORATORY ([facility]) Estimated 40 (L) >=60 01/06/2022 6:46 AM [facility] Glomerular mL/min/1.73 m2 PDT MAIN LABORATOR Y Filtration Rate ([facility]) (eGFR) Comment: Estimated GFR is calculated using the [...] / Volume Laterality Blood (Catheter, Venipuncture / 01/06/2022 6:00 2021 6:03 Central Line Unknown AM PDT AM PDT (CVC)) Mustapha Leonard DO BKR LAB BLOOD ORDERABLES Performing Organization Address City/State/ZIP Code Phon [facility] Number [facility] [address] [facility] [place] LABORATORY ([facility]) WAY [phone] (ABNORMAL) POC Glucose (01/06/2022 5:38 AM PDT) P athologist Signature Glucose (POC) 127 (H) 65 - 99 01/06/2022 [facility] mg/dL 5:54 AM PDT [facility] LABORATORY ([facility]) Specimen Anatomical Collection Method Collection Time Receive d Time (Source) Location / / Volume Laterality Blood 01/06/2022 5:38 AM 2 5:54 (Capillary) PDT AM PDT Zachary Roe MD, PhD R LAB POINT OF CARE TEST D OCKED DEVICE UNSOLICITED RESULTS Performing Organization Address City/State/ZIP Code Phon [facility] Number [facility] [address] [place] [place] LAB[place]ORY ([employer]) [address] [phone] (ABNORMAL) POC Glucose (01/06/2022 3:32 AM PDT) P athologist Signature Glucose (POC) 110 (H) 65 - 99 01/06/2022 [facility] mg/dL 3:41 AM PDT [facility] LABORATORY ([facility]) Specimen Anatomical Collection Method Collection Time Receive d Time (Source) Location / / Volume Laterality Blood 01/06/2022 3:32 AM 2 3:41 (Capillary) PDT AM PDT Zachary Roe MD, PhD BKR LAB POINT OF CARE TEST D OCKED DEVICE UNSOLICITED RESULTS Performing Organization Address City/State/ZIP Code [facility]on [facility] Number [facility] [address] [facility] [place] [facility] ([employer]) [address] [phone] (ABNORMAL) POC Glucose (01/06/2022 1:36 AM PDT) athologist Signature Glucose (POC) 137 (H) 65 - 99 01/06/2022 ANIAK mg/dL 1:45 AM PDT [facility] ([facility]) Specimen Anatomical Collection Method Collection Time Receive d Time (Source) Location / / Volume Laterality Blood 01/06/2022 1:36 AM 2 1:45 (Capillary) PDT AM PDT Zachary Roe MD, PhD BKR LAB POINT OF CARE TEST D OCKED DEVICE UNSOLICITED RESULTS Performing Organization Address City/State/ZIP Code Phon e Number [facility] [address] [facility] ID [facility]OR[facility]ORY ([facility]) WAY [phone] (ABNORMAL) POC Glucose (01/05/2022 11:36 PM PDT) athologist Signature Glucose (POC) 130 (H) 65 - 99 01/05/2022 ANIAK mg/dL 11:49 PM PDT [facility] ([facility]) Specimen Anatomical Collection Method Collection Time Receive d Time (Source) Location / / Volume Laterality Blood 01/05/2022 11:36 01/05/2022 (Capillary) PM PDT 11:49 PM PDT Zachary Roe MD, PhD [facility] LAB POINT OF CARE TEST D OCKED DEVICE UNSOLICITED RESULTS Performing Organization Address City/State/ZIP Code Phon e Number [facility] [address] [facility] [place], [place] [facility] ([facility]) WAY [phone] (ABNORMAL) POC Glucose (01/05/2022 9:32 PM PDT) athologist Signature Glucose (POC) 123 (H) 65 - 99 01/05/2022 ANIAK mg/dL 9:42 PM PDT [facility] ([facility]) Specimen Anatomical Collection Method Collection Time Receive d Time (Source) Location / / Volume Laterality Blood 01/05/2022 9:32 PM 2 9:42 (Capillary) PDT PM PDT Zachary Roe MD, PhD BKR LAB POINT OF CARE TEST D OCKED DEVICE UNSOLICITED RESULTS Performing Organization Address City/State/ZIP Code Phon e Number [facility] [address] [facility] ID LABORATORY ([facility]) WAY [phone] (ABNORMAL) POC Glucose (01/05/2022 7:32 PM PDT) P athologist Signature Glucose (POC) 125 (H) 65 - 99 01/05/2022 ANIAK mg/dL 7:41 PM PDT [facility] ([facility]) Specimen Anatomical Collection Method Collection Time Receive d Time (Source) Location / / Volume Laterality Blood 01/05/2022 7:32 PM 2 7:41 (Capillary) PDT PM PDT Zachary Roe MD, PhD BKR LAB POINT OF CARE TEST D OCKED DEVICE UNSOLICITED RESULTS Performing Organization Address City/State/ZIP Code Phon e Number [facility] [address] [facility] ID LABORATORY ([facility]) WAY [phone] (ABNORMAL) POC Glucose (01/05/2022 5:28 PM PDT) P athologist Signature Glucose (POC) 119 (H) 65 - 99 01/05/2022 ANIAK mg/dL 5:45 PM PDT [facility] ([facility]) Specimen Anatomical Collection Method Collection Time Receive d Time (Source) Location / / Volume Laterality Blood 01/05/2022 5:28 PM 2 5:45 (Capillary) PDT PM PDT Zachary Roe MD, PhD BKR LAB POINT OF CARE TEST D OCKED DEVICE UNSOLICITED RESULTS Performing Organization Address City/State/ZIP Code Phon e Number [facility] [address] [facility] ID LABORATORY ([facility]) WAY [phone] (ABNORMAL) POC Glucose (01/05/2022 3:23 PM PDT) P athologist Signature Glucose (POC) 126 (H) 65 - 99 01/05/2022 ANIAK mg/dL 5:45 PM PDT [facility] ([facility]) Specimen Anatomical Collection Method Collection Time Receive d Time (Source) Location / / Volume Laterality Blood 01/05/2022 3:23 PM 2 5:45 (Capillary) PDT PM PDT Zachary Roe MD, PhD BKR LAB POINT OF CARE TEST D OCKED DEVICE UNSOLICITED RESULTS Performing Organization Address City/[facility]/ZIP Code Phon e Number [facility] [address] [facility] [place] [facility]ORY ([facility]) WAY [phone] (ABNORMAL) POC Glucose (01/05/2022 2:27 PM PDT) P athologist Signature Glucose (POC) 131 (H) 65 - 99 01/05/2022 ANIAK mg/dL 2:34 PM PDT [facility] ([facility]) Specimen Anatomical Collection Method Collection Time Receive d Time (Source) Location / / Volume Laterality Blood 01/05/2022 2:27 PM 2 2:34 (Capillary) PDT PM PDT Zachary Roe MD, PhD BKR LAB POINT OF CARE TEST D OCKED DEVICE UNSOLICITED RESULTS Performing Organization Address [facility]/ZIP Code Phon [facility] [address] [place] [place] [facility] ([facility]) WAY [phone] (ABNORMAL) POC Glucose (01/05/2022 1:31 PM PDT) P athologist Signature Glucose (POC) 133 (H) 65 - 99 01/05/2022 ANIAK mg/dL 1:38 PM PDT [facility] ([facility]) Specimen Anatomical Collection Method Collection Time Receive d Time (Source) Location / / Volume Laterality Blood 01/05/2022 1:31 PM 2 1:38 (Capillary) PDT PM PDT Zachary Roe MD, PhD BKR LAB POINT OF CARE TEST D OCKED DEVICE UNSOLICITED RESULTS Performing Organization Address City/[facility]/ZIP Code Phon e Number [facility] [address] [place] [place] [facility] ([facility]) WAY [phone] (ABNORMAL) POC Glucose (01/05/2022 12:37 PM PDT) P athologist Signature Glucose (POC) 107 (H) 65 - 99 01/05/2022 ANIAK mg/dL 12:43 PM PDT [facility] ([facility]) Specimen Anatomical Collection Method Collection Time Receive d Time (Source) Location / / Volume Laterality Blood 01/05/2022 12:37 01/05/2022 (Capillary) PM PDT 12:43 PM PDT Zachary Roe MD, PhD BKR LAB POINT OF CARE TEST D OCKED DEVICE UNSOLICITED RESULTS Performing Organization Address City/State/ZIP Code Phon e Number [place] [place] [facility] [address] [place], [place] LABORATORY ([employer]) WAY [phone] (ABNORMAL) POC Glucose (01/05/2022 11:35 AM PDT) athologist Signature Glucose (POC) 114 (H) 65 - 99 01/05/2022 ANIAK mg/dL 11:42 AM PDT [facility] ([facility]) Specimen Anatomical Collection Method Collection Time Receive d Time (Source) Location / / Volume Laterality Blood 01/05/2022 11:35 01/05/2022 (Capillary) AM PDT 11:42 AM PDT Zachary Roe MD, PhD BKR LAB POINT OF CARE TEST D OCKED DEVICE UNSOLICITED RESULTS Performing Organization Address City/State/ZIP Code Phon e Number [facility] [place] [facility] [address] [place], [place] LABORATORY ([employer]) WAY [phone] XR KUB TO CHECK FEEDING TUBE (01/05/2022 10:45 AM PDT) Anatomical Region Laterality Modality Abdomen Digital Radiography Specimen (Source) Anatomical Collection Method Collection Time Re ceived Time Location / / Volume Laterality 01/05/2022 11:04 AM PDT Impressions 01/05/2022 11:06 AM PDT IMPRESSION: 1. The radiopaque tip of the feeding t ube overlies the fundus of the stomach. 2. Cholelithiasis. Narrative 01/05/2022 11:06 AM PDT EXAM: XR KUB TO CHECK FEEDING TUBE CLINICAL HISTORY: Feeding tube placement . TECHNICAL DATA: Portable AP view of the abdomen. COMPARISON: None. FINDINGS: The radiopaque tip of the feed ing tube overlies the fundus of the stomach. The visible abdominal gas patte rn is unremarkable. A gastric stimulator device is noted. Gallstones a re faintly visible overlying the right upper quadrant. There are several partially healed right-sided rib fractures. Procedure Note Oskar Valentine MD - 01/05/2022 EXAM: XR KUB TO CHECK FEEDING TUBE CLINICAL HISTORY: Feeding tube placement . TECHNICAL DATA: Portable AP view of the abdomen. COMPARISON: None. FINDINGS: The radiopaque tip of the feed ing tube overlies the fundus of the stomach. The visible abdominal gas patte rn is unremarkable. A gastric stimulator device is noted. Gallstones a re faintly visible overlying the right upper quadrant. There are several partially healed right-sided rib fractures. IMPRESSION: 1. The radiopaque tip of the feeding tub e overlies the fundus of the stomach. 2. Cholelithiasis. Zachary Roe MD, PhD DIAGNOSTIC RADIOLOGY (ABNORMAL) POC Glucose (01/05/2022 10:35 AM PDT) P athologist Signature Glucose (POC) 132 (H) 65 - 99 01/05/2022 [facility] mg/dL 10:44 AM PDT [facility] ([facility]) Specimen Anatomical Collection Method Collection Time Receive d Time (Source) Location / / Volume Laterality Blood 01/05/2022 10:35 01/05/2022 (Capillary) AM PDT 10:44 AM PDT Zachary Roe MD, PhD BKR LAB POINT OF CARE TEST D OCKED DEVICE UNSOLICITED RESULTS Performing Organization Address City/State/ZIP Code Phon e Number [facility] [address] [facility] LAB[place]ATORY ([facility]) WAY [phone] (ABNORMAL) POC Glucose (01/05/2022 9:28 AM PDT) P athologist Signature Glucose (POC) 151 (H) 65 - 99 01/05/2022 ANIAK mg/dL 9:35 AM PDT [facility] ([facility]) Specimen Anatomical Collection Method Collection Time Receive d Time (Source) Location / / Volume Laterality Blood 01/05/2022 9:28 AM 9:35 (Capillary) PDT AM PDT Zachary Roe MD, PhD BKR LAB POINT OF CARE TEST D OCKED DEVICE UNSOLICITED RESULTS Performing Organization Address City/[facility]/ZIP Code Phon [facility] [address] [facility] [place] [place] LAB[place]ATORY ([facility]) WAY [phone] (ABNORMAL) Potassium (01/05/2022 9:06 AM PDT) P athologist Signature Potassium 5.4 (H) 3.5 - 5.0 01/05/2022 [facility] mmol/L 9:45 AM PDT MAIN LABORATORY ([facility]) Specimen Anatomical Collection Method / Collection Time Recei pierre Time (Source) Location / Volume Laterality Blood (Venous) Venipuncture / 01/05/2022 9:06 01/06/20 9:15 Unknown AM PDT AM PDT Song Felder MD BKR LAB BLOOD ORDERABLES Performing Organization Address City/[facility]/ZIP Code Phon e [facility] [address] [facility] [place] LAB[facility]ATORY ([facility]) WAY [phone] (ABNORMAL) POC Glucose (01/05/2022 8:24 AM PDT) P athologist Signature Glucose (POC) 121 (H) 65 - 99 01/05/2022 ANIAK mg/dL 8:51 AM PDT [facility] ([facility]) Specimen Anatomical Collection Method Collection Time Receive d Time (Source) Location / / Volume Laterality Blood 01/05/2022 8:24 AM 8:51 (Capillary) PDT AM PDT Zachary Roe MD, PhD BKR LAB POINT OF CARE TEST D OCKED DEVICE UNSOLICITED RESULTS Performing Organization Address City/State/ZIP Code Phon [facility] Number [facility] [address] [facility] [place] [place] LABORATORY ([employer]) WAY [phone] (ABNORMAL) POC Glucose (01/05/2022 7:28 AM PDT) P athologist Signature Glucose (POC) 108 (H) 65 - 99 01/05/2022 [facility] mg/dL 7:34 AM PDT [facility] ([facility]) Specimen Anatomical Collection Method Collection Time Receive d Time (Source) Location / / Volume Laterality Blood 01/05/2022 7:28 AM 2 7:34 (Capillary) PDT AM PDT Zachary Roe MD, PhD BKR LAB POINT OF CARE TEST D OCKED DEVICE UNSOLICITED RESULTS Performing Organization Address City/State/ZIP Code Phon [facility] Number [facility] [address] [place] [place] [facility] ([facility]) WAY [phone] (ABNORMAL) POC Glucose (01/05/2022 6:25 AM PDT) athologist Signature Glucose (POC) 144 (H) 65 - 99 01/05/2022 [facility] mg/dL 6:32 AM PDT [facility] ([facility]) Specimen Anatomical Collection Method Collection Time Receive d Time (Source) Location / / Volume Laterality Blood 01/05/2022 6:25 AM 2 6:32 (Capillary) PDT AM PDT Zachary Roe MD, PhD KAYLANR LAB POINT OF CARE TEST D OCKED DEVICE UNSOLICITED RESULTS Performing Organization Address City/[facility]/ZIP Code Phon e [facility] [address] [facility] [place] [place] [facility] ([employer]) WAY [phone] (ABNORMAL) POC Glucose (01/05/2022 5:10 AM PDT) athologist Signature Glucose (POC) 116 (H) 65 - 99 01/05/2022 ANIAK mg/dL 5:17 AM PDT [facility] ([facility]) Specimen Anatomical Collection Method Collection Time Receive d Time (Source) Location / / Volume Laterality Blood 01/05/2022 5:10 AM 2 5:17 (Capillary) PDT AM PDT Zachary Roe MD, PhD BKR LAB POINT OF CARE TEST D OCKED DEVICE UNSOLICITED RESULTS Performing Organization Address City/State/ZIP Code Phon e Number [facility] [address] [facility] [place] [place] LAB[facility]ORY ([facility]) WAY [phone] (ABNORMAL) CBC w/Auto Differential (01/05/2022 5:06 AM PDT) P athologist Signature WBC 14.76 (H) 4.00 - 01/05/2022 [facility] 11.00 5:47 AM PDT MAIN LABORATORY x10E3/uL ([facility]) RBC 3.28 (L) 4.30 - 01/05/2022 [facility] 5.70 5:47 AM PDT MAIN LABORATORY x10E6/uL ([facility]) Hemoglobin 9.4 (L) 13.7 - 01/05/2022 [facility] 16.7 g/dL 5:47 AM PDT MAIN LABORATORY ([facility]) Hematocrit 29.3 (L) 40.0 - 01/05/2022 [facility] 50.0 % 5:47 AM PDT MAIN LABORATORY ([facility]) MCV 89.3 80.0 - 01/05/2022 [facility] 100.0 fL 5:47 AM PDT MAIN LABORATORY ([facility]) Comment: Delta most likely due to clinic ally significant change in patient status subject to provider interpretation. MCH 28.7 27.0 - 34.0 01/05/2022 5:47 AM ANIAKMake Meaning pg PDT MAIN LABORATORY ([facility]) MCHC 32.1 31.5 - 35.7 01/05/2022 5:47 AM [facility] g/dL PDT MAIN LABORATORY ([facility]) RDW 13.6 11.0 - 15.0 % 01/05/2022 5:47 AM F-OriginOTENA I [place] PDT MAIN LABORATORY ([facility]) Platelet Count 121 (L) 150 - 400 01/05/2022 5:47 AM [employer] Software x10E3/uL PDT MAIN LABORATORY ([facility]) MPV 13.0 (H) 9.4 - 12.4 fL 01/05/2022 5:47 AM F-OriginOTENA I [facility] PDT MAIN LABORATORY (AKER) Neutrophils %, 90.6 (H) 40.0 - 80.0 % 01/05/2022 5:47 AM KO [employer] Automated PDT MAIN LABORATORY ([facility]) Immature Granulocytes 0.4 0.0 - 1.0 % 01/05/2022 5:47 AM [facility] %, Automated PDT MAIN LABORATORY (AKER) Lymphocytes %, 4.6 (L) 15.0 - 45.0 % 01/05/2022 5:47 AM KO [facility] Automated PDT MAIN LABORATORY ([facility]) Monocytes %, 4.3 0.0 - 12.0 % 01/05/2022 5:47 AM KOOTE [facility] Automated PDT MAIN LABORATORY ([facility]) Eosinophils %, 0.0 0.0 - 7.0 % 01/05/2022 5:47 AM KOOT [facility] Automated PDT MAIN LABORATORY ([facility]) Basophils %, 0.1 0.0 - 2.0 % 01/05/2022 5:47 AM F-OriginOTEN AI [facility] Automated PDT MAIN LABORATORY ([facility]) Neutrophils Abs, 13.36 (H) 2.00 - 7.30 01/05/2022 5:47 AM KO OTENAI [place] Automated x10E3/uL PDT MAIN LABORATORY ([facility]) Immature Granulocyte 0.06 (H) 0.00 - 0.05 01/05/2022 5:47 A M [facility] Abs, Automated x10E3/uL PDT MAIN LABORATORY ([facility]) Lymphocytes Abs, 0.68 (L) 1.00 - 3.40 01/05/2022 5:47 AM KO [facility] Automated x10E3/uL PDT MAIN LABORATORY ([facility]) Monocytes Abs, 0.64 0.00 - 0.80 01/05/2022 5:47 AM F-OriginOT ENAI [facility]ALTH Automated x10E3/uL PDT MAIN LABORATORY ([facility]) Eosinophils Abs, <0.03 0.00 - 0.50 01/05/2022 5:47 AM KO OTENAI [place] Automated x10E3/uL PDT MAIN LABORATORY ([facility]) Basophils Abs, <0.03 0.00 - 0.10 01/05/2022 5:47 AM F-OriginOT ENAI [place] Automated x10E3/uL PDT MAIN LABORATORY ([facility]) nRBC %, Automated 0.1 0.0 - 1.0 01/05/2022 5:47 AM JENNA TENAI [place] /100 WBC PDT MAIN LABORATORY ([facility]) nRBC Abs, Automated 0.02 (H) 0.00 - 0.01 01/05/2022 5:47 AM [employer] x10E3/uL PDT MAIN LABORATORY ([facility]) Specimen Anatomical Collection Method / Collection Time Recei pierre Time (Source) Location / Volume Laterality Blood (Venous) Venipuncture / 01/05/2022 5:06 06/21/20 22 5:24 Unknown AM PDT AM PDT Mustapha Martinez Horacio ALDRICH BKR LAB BLOOD ORDERABLES Performing Organization Address City/State/ZIP Code Phon e Number [facility] [address] [place], [place] LABORATORY ([facility]) WAY [phone] Magnesium (01/05/2022 5:06 AM PDT) P athologist Signature Magnesium 2.3 1.7 - 2.4 01/05/2022 [facility] mg/dL 5:52 AM [facility] MAIN LABORATORY ([facility]) Specimen Anatomical Collection Method / Collection Time Recei pierre Time (Source) Location / Volume Laterality Blood (Venous) Venipuncture / 01/05/2022 5:06 01/06/20 22 5:24 Unknown AM PDT AM PDT Mustapha Leonard DO BKR LAB BLOOD ORDERABLES Performing Organization Address City/State/ZIP Code Phon e Number [facility] [address] [facility] ID LABORATORY ([facility]) WAY [phone] (ABNORMAL) Renal Profile (01/05/2022 5:06 AM PDT) Patholo gist Method Time Signature Sodium 142 136 - 145 01/05/2022 [facility] mmol/L 5:56 AM [facility] LABORATORY ([facility]) Potassium 3.8 3.5 - 5.0 01/05/2022 [facility] mmol/L 5:56 AM [facility] LAB[facility]ATORY ([facility]) Chloride 109 99 - 109 01/05/2022 [facility] mmol/L 5:56 AM [facility] LABORATORY ([facility]) CO2 22 (L) 23 - 33 01/05/2022 [facility] mmol/L 5:56 AM [facility] LABORATORY ([facility]) Anion Gap 11 5 - 16 01/05/2022 [facility] ratio 5:56 AM [facility] LABORATORY ([facility]) Creatinine 2.51 (H) 0.50 - 01/05/2022 [facility] 1.30 mg/dL 5:56 AM [facility] LABORATORY ([facility]) BUN 43 (H) 8 - 25 01/05/2022 [facility] mg/dL 5:56 AM [facility] LAB[facility]ORY ([facility]) Glucose 124 (H) 65 - 99 01/05/2022 [facility] mg/dL 5:56 AM [facility] LAB[facility]ORY ([facility]) Calcium 7.4 (L) 8.5 - 10.2 01/05/2022 [facility] mg/dL 5:56 AM [facility] LABORATORY ([facility]) Phosphorus 2.7 2.3 - 4.8 01/05/2022 [facility] mg/dL 5:56 AM [facility] LAB[facility]ORY ([facility]) Albumin 2.5 (L) 3.5 - 5.0 01/05/2022 [facility] g/dL 5:56 AM [facility] LABORATORY ([facility]) Estimated 33 (L) >=60 01/05/2022 [facility] Glomerular mL/min/1.7 5:56 AM [facility] Filtration Rate 3 m2 LABORATORY (eGFR) ([facility]) Comment: Estimated GFR is calculated [...] / Volume Laterality Blood (Venous) Venipuncture / 01/05/2022 5:06 01/06/20 22 5:24 Unknown AM PDT AM PDT Mustapha Leonard DO BKR LAB BLOOD ORDERABLES Performing Organization Address City/State/ZIP Code Phon e Number [facility] [address] [facility] [place] LABORATORY ([facility]) WAY [phone] (ABNORMAL) POC Glucose (01/05/2022 4:13 AM PDT) P athologist Signature Glucose (POC) 112 (H) 65 - 99 01/05/2022 [facility] mg/dL 4:21 AM [facility] LABORATORY ([facility]) Specimen Anatomical Collection Method Collection Time Receive d Time (Source) Location / / Volume Laterality Blood 01/05/2022 4:13 AM 2 4:21 (Capillary) PDT AM PDT Zachary Roe MD, PhD BKR LAB POINT OF CARE TEST D OCKED DEVICE UNSOLICITED RESULTS Performing Organization Address City/[facility]/ZIP Code Phon [facility] [address] [place] [place] [facility] ([employer]) [address] [phone] (ABNORMAL) POC Glucose (01/05/2022 3:25 AM PDT) P athologist Signature Glucose (POC) 134 (H) 65 - 99 01/05/2022 [facility] mg/dL 3:32 AM PDT [facility] ([facility]) Specimen Anatomical Collection Method Collection Time Receive d Time (Source) Location / / Volume Laterality Blood 01/05/2022 3:25 AM 2 3:32 (Capillary) PDT AM PDT Zachary Roe MD, PhD BKR LAB POINT OF CARE TEST D OCKED DEVICE UNSOLICITED RESULTS Performing Organization Address [facility]/ZIP Code Phon e Number [facility] [address] [place] [facility] ([place]) [address] [phone] (ABNORMAL) POC Glucose (01/05/2022 2:27 AM PDT) P athologist Signature Glucose (POC) 139 (H) 65 - 99 01/05/2022 [facility] mg/dL 2:34 AM PDT [facility] LABORATORY ([employer]) Specimen Anatomical Collection Method Collection Time Receive d Time (Source) Location / / Volume Laterality Blood 01/05/2022 2:27 AM 2 2:34 (Capillary) PDT AM PDT Zachary Roe MD, PhD BKR LAB POINT OF CARE TEST D OCKED DEVICE UNSOLICITED RESULTS Performing Organization Address City/[facility]/ZIP Code Phon [facility] [address] [place] [facility] ([employer]) [address] [phone] (ABNORMAL) POC Glucose (01/05/2022 1:11 AM PDT) P athologist Signature Glucose (POC) 122 (H) 65 - 99 01/05/2022 [facility] mg/dL 1:17 AM PDT [facility] LAB[facility] ([facility]) Specimen Anatomical Collection Method Collection Time Receive d Time (Source) Location / / Volume Laterality Blood 01/05/2022 1:11 AM 2 1:17 (Capillary) PDT AM PDT Zachary Roe MD, PhD BKR LAB POINT OF CARE TEST D OCKED DEVICE UNSOLICITED RESULTS Performing Organization Address City/[facility]/ZIP Code Phon e [facility] [address] [facility] ([facility]) WAY [phone] (ABNORMAL) POC Glucose (01/05/2022 12:10 AM PDT) P athologist Signature Glucose (POC) 137 (H) 65 - 99 01/05/2022 [facility] mg/dL 12:17 AM PDT [facility] ([facility]) Specimen Anatomical Collection Method Collection Time Receive d Time (Source) Location / / Volume Laterality Blood 01/05/2022 12:10 01/05/2022 (Capillary) AM PDT 12:17 AM PDT Zachary Roe MD, PhD KAYLANR LAB POINT OF CARE TEST D OCKED DEVICE UNSOLICITED RESULTS Performing Organization Address [facility]/ZIP Code Phon e [facility] [address] [facility] ID LABORATORY ([facility]) WAY [phone] (ABNORMAL) POC Glucose (01/04/2022 11:10 PM PDT) P athologist Signature Glucose (POC) 123 (H) 65 - 99 01/04/2022 [facility] mg/dL 11:17 PM PDT [facility] LABOR[facility]ORY ([facility]) Specimen Anatomical Collection Method Collection Time Receive d Time (Source) Location / / Volume Laterality Blood 01/04/2022 11:10 01/04/2022 (Capillary) PM PDT 11:17 PM PDT Zachary Roe MD, PhD BKR LAB POINT OF CARE TEST D OCKED DEVICE UNSOLICITED RESULTS Performing Organization Address City/[facility]/ZIP Code Phon e [facility] [address] [facility] ID LABORATORY ([facility]) WAY [phone] (ABNORMAL) POC Glucose (01/04/2022 10:27 PM PDT) P athologist Signature Glucose (POC) 136 (H) 65 - 99 01/04/2022 [facility] mg/dL 10:35 PM PDT [facility] LAB[facility] ([facility]) Specimen Anatomical Collection Method Collection Time Receive d Time (Source) Location / / Volume Laterality Blood 01/04/2022 10:27 01/04/2022 (Capillary) PM PDT 10:35 PM PDT Zachary Roe MD, PhD BKR LAB POINT OF CARE TEST D OCKED DEVICE UNSOLICITED RESULTS Performing Organization Address City/State/ZIP Code Phon [facility] [address] [facility] [place] LAB[place]ORY ([facility]) WAY [phone] (ABNORMAL) POC Glucose (01/04/2022 9:19 PM PDT) P athologist Signature Glucose (POC) 127 (H) 65 - 99 01/04/2022 [facility] mg/dL 9:26 PM PDT [facility] LABORATORY ([facility]) Specimen Anatomical Collection Method Collection Time Receive d Time (Source) Location / / Volume Laterality Blood 01/04/2022 9:19 PM 2 9:26 (Capillary) PDT PM PDT Zachary Roe MD, PhD BKR LAB POINT OF CARE TEST D OCKED DEVICE UNSOLICITED RESULTS Performing Organization Address City/State/ZIP Code Phon [facility] [address] [place] [place] [facility] ([employer]) [address] [phone] (ABNORMAL) POC Glucose (01/04/2022 8:03 PM PDT) P athologist Signature Glucose (POC) 157 (H) 65 - 99 01/04/2022 [facility] mg/dL 8:10 PM PDT [facility] LABORATORY ([facility]) Specimen Anatomical Collection Method Collection Time Receive d Time (Source) Location / / Volume Laterality Blood 01/04/2022 8:03 PM 2 8:10 (Capillary) PDT PM PDT Zachary Roe MD, PhD BKR LAB POINT OF CARE TEST D OCKED DEVICE UNSOLICITED RESULTS Performing Organization Address City/State/ZIP Code Phon [facility] [address] [place] [facility] ([employer]) [address] [phone] (ABNORMAL) POC Glucose (01/04/2022 6:27 PM PDT) P athologist Signature Glucose (POC) 115 (H) 65 - 99 01/04/2022 [facility] mg/dL 6:34 PM PDT [facility] [facility]) Specimen Anatomical Collection Method Collection Time Receive d Time (Source) Location / / Volume Laterality Blood 01/04/2022 6:27 PM 2 6:34 (Capillary) PDT PM PDT Zachary Roe MD, PhD BKR LAB POINT OF CARE TEST D OCKED DEVICE UNSOLICITED RESULTS Performing Organization Address City/State/ZIP Code Phon e Number [facility] [address] [facility], [place] LABORATORY ([facility]) WAY [phone] (ABNORMAL) POC Glucose (01/04/2022 5:27 PM PDT) P athologist Signature Glucose (POC) 133 (H) 65 - 99 01/04/2022 [place]K mg/dL 5:34 PM PDT [facility] LABORATORY ([facility]) Specimen Anatomical Collection Method Collection Time Receive d Time (Source) Location / / Volume Laterality Blood 01/04/2022 5:27 PM 2 5:34 (Capillary) PDT PM PDT Zachary Roe MD, PhD BKR LAB POINT OF CARE TEST D OCKED DEVICE UNSOLICITED RESULTS Performing Organization Address City/State/ZIP Code Phon e Number [facility] [address] [facility] [place] LAB[place]ORY ([facility]) WAY [phone] (ABNORMAL) POC Glucose (01/04/2022 4:39 PM PDT) P athologist Signature Glucose (POC) 177 (H) 65 - 99 01/04/2022 [place]K mg/dL 4:45 PM PDT [facility] LABORATORY ([facility]) Specimen Anatomical Collection Method Collection Time Receive d Time (Source) Location / / Volume Laterality Blood 01/04/2022 4:39 PM 2 4:45 (Capillary) PDT PM PDT Zachary Roe MD, PhD BKR LAB POINT OF CARE TEST D OCKED DEVICE UNSOLICITED RESULTS Performing Organization Address City/[facility]/ZIP Code Phon e Number [facility] [address] [facility] [place] [facility] ([place]) [address] [phone] (ABNORMAL) POC Glucose (01/04/2022 3:36 PM PDT) P athologist Signature Glucose (POC) 157 (H) 65 - 99 01/04/2022 [place] mg/dL 3:44 PM PDT [facility] ([employer]) Specimen Anatomical Collection Method Collection Time Receive d Time (Source) Location / / Volume Laterality Blood 01/04/2022 3:36 PM 2 3:44 (Capillary) PDT PM PDT Zachary Roe MD, PhD BKR LAB POINT OF CARE TEST D OCKED DEVICE UNSOLICITED RESULTS Performing Organization Address [facility]/ZIP Code Phon e Number [facility] [address] [place] [place] [place] [facility] ([place]) WAY [phone] (ABNORMAL) POC Glucose (01/04/2022 2:25 PM PDT) P athologist Signature Glucose (POC) 169 (H) 65 - 99 01/04/2022 [place]K mg/dL 2:32 PM PDT [facility] LABORATORY ([employer]) Specimen Anatomical Collection Method Collection Time Receive d Time (Source) Location / / Volume Laterality Blood 01/04/2022 2:25 PM 2 2:32 (Capillary) PDT PM PDT Zachary Roe MD, PhD BKR LAB POINT OF CARE TEST D OCKED DEVICE UNSOLICITED RESULTS Performing Organization Address City/[facility]/ZIP Code Phon e Number [facility] [address] [facility] [place] [facility] ([place]) [address] [phone] (ABNORMAL) POC Glucose (01/04/2022 1:23 PM PDT) P athologist Signature Glucose (POC) 130 (H) 65 - 99 01/04/2022 [place]K mg/dL 1:31 PM PDT [facility] LABORATORY ([place]) Specimen Anatomical Collection Method Collection Time Receive d Time (Source) Location / / Volume Laterality Blood 01/04/2022 1:23 PM 2 1:31 (Capillary) PDT PM PDT Dimas JOHNSON LAB POINT OF CARE TEST D OCKED DEVICE UNSOLICITED RESULTS Performing Organization Address City/[facility]/ZIP Code Phon e Faustino SERRANO[address] [place] LAB[place]ORY ([facility]) WAY [phone] (ABNORMAL) POC Glucose (01/04/2022 12:30 PM PDT) P athologist Signature Glucose (POC) 123 (H) 65 - 99 01/04/2022 [place] mg/dL 12:38 PM PDT [facility] LABORATORY ([facility]) Specimen Anatomical Collection Method Collection Time Receive d Time (Source) Location / / Volume Laterality Blood 01/04/2022 12:30 01/04/2022 (Capillary) PM PDT 12:38 PM PDT Dimas JOHNSON LAB POINT OF CARE TEST D OCKED DEVICE UNSOLICITED RESULTS Performing Organization Address [facility]/ZIP Code Phon e [facility] [address] [facility] ([facility]) WAY [phone] (ABNORMAL) POC Glucose (01/04/2022 11:27 AM PDT) P athologist Signature Glucose (POC) 102 (H) 65 - 99 01/04/2022 [place] mg/dL 11:34 AM PDT [facility] LABORATORY ([facility]) Specimen Anatomical Collection Method Collection Time Receive d Time (Source) Location / / Volume Laterality Blood 01/04/2022 11:27 01/04/2022 (Capillary) AM PDT 11:34 AM PDT Dimas JOHNSON LAB POINT OF CARE TEST D OCKED DEVICE UNSOLICITED RESULTS Performing Organization Address City/State/ZIP Code Phon e [facility] [address] [facility] ([facility]) WAY [phone] (ABNORMAL) POC Glucose (01/04/2022 10:26 AM PDT) P athologist Signature Glucose (POC) 100 (H) 65 - 99 01/04/2022 [place] mg/dL 10:34 AM PDT [facility] LABORATORY ([facility]) Specimen Anatomical Collection Method Collection Time Receive d Time (Source) Location / / Volume Laterality Blood 01/04/2022 10:26 01/04/2022 (Capillary) AM PDT 10:34 AM PDT Dimas KIMBROUGHR LAB POINT OF CARE TEST D OCKED DEVICE UNSOLICITED RESULTS Performing Organization Address City/State/ZIP Code Phon e [facility] [address] [facility] [place] LABORATORY ([facility]) WAY [phone] (ABNORMAL) POC Glucose (01/04/2022 9:22 AM PDT) P athologist Signature Glucose (POC) 145 (H) 65 - 99 01/04/2022 [place] mg/dL 9:39 AM PDT [facility] LABORATORY ([facility]) Specimen Anatomical Collection Method Collection Time Receive d Time (Source) Location / / Volume Laterality Blood 01/04/2022 9:22 AM 2 9:39 (Capillary) PDT AM PDT Dimas KIMBROUGHR LAB POINT OF CARE TEST D OCKED DEVICE UNSOLICITED RESULTS Performing Organization Address City/State/ZIP Code Phon e Number [facility] [address] [facility] [place] [facility] ([facility]) WAY [phone] (ABNORMAL) POC Glucose (01/04/2022 8:24 AM PDT) P athologist Signature Glucose (POC) 215 (H) 65 - 99 01/04/2022 [place] mg/dL 8:38 AM PDT [facility] LAB[facility]ATORY ([facility]) Specimen Anatomical Collection Method Collection Time Receive d Time (Source) Location / / Volume Laterality Blood 01/04/2022 8:24 AM 2 8:38 (Capillary) PDT AM PDT Dimas KIMBROUGHR LAB POINT OF CARE TEST D OCKED DEVICE UNSOLICITED RESULTS Performing Organization Address City/State/ZIP Code Phon e Number [facility] [address] [facility] [place] [facility] ([facility]) WAY [phone] (ABNORMAL) Renal Profile (01/04/2022 8:19 AM PDT) [facility] Method Time Signature Sodium 141 136 - 145 01/04/2022 [place] mmol/L 9:20 AM [facility] LABORATORY ([facility]) Potassium 3.8 3.5 - 5.0 01/04/2022 [place] mmol/L 9:20 AM [facility] LABORATORY ([facility]) Chloride 99 99 - 109 01/04/2022 [place] mmol/L 9:20 AM [facility] LABORATORY ([facility]) CO2 28 23 - 33 01/04/2022 [place] mmol/L 9:20 AM [facility] LABORATORY ([facility]) Anion Gap 14 5 - 16 01/04/2022 [place] ratio 9:20 AM [facility] LABORATORY ([facility]) Creatinine 3.63 (H) 0.50 - 01/04/2022 [place] 1.30 mg/dL 9:20 AM [facility] LABORATORY ([facility]) BUN 55 (H) 8 - 25 01/04/2022 [place] mg/dL 9:20 AM [facility] LABORATORY ([facility]) Glucose 246 (H) 65 - 99 01/04/2022 [place] mg/dL 9:20 AM [facility] LABORATORY ([facility]) Calcium 8.2 (L) 8.5 - 10.2 01/04/2022 [place] mg/dL 9:20 AM [facility] LABORATORY ([facility]) Phosphorus 2.9 2.3 - 4.8 01/04/2022 [place] mg/dL 9:20 AM [facility] LABORATORY ([facility]) Albumin 2.9 (L) 3.5 - 5.0 01/04/2022 [place] g/dL 9:20 AM [facility] LABORATORY ([facility]) Estimated 21 (L) >=60 01/04/2022 [place] Glomerular mL/min/1.7 9:20 AM [facility] Filtration Rate 3 m2 LABORATORY (eGFR) ([facility]) Comment: Estimated GFR is calculated [...] / Volume Laterality Blood (Venous) Venipuncture / 01/04/2022 8:19 01/05/20 8:28 Unknown AM PDT AM PDT Mustapha Leonard DO BKR LAB BLOOD ORDERABLES Performing Organization Address City/State/ZIP Code Phon e Number [facility] [address] [facility], [place] LABORATORY ([facility]) WAY [phone] Phosphorus (01/04/2022 8:19 AM PDT) P athologist Signature Phosphorus 2.9 2.3 - 4.8 [facility]/04[facility] 8[facility]59 AM [facility] LAB[facility]AT[facility] ([facility]) Specimen Anatomical Collection Method Collection Time Receive d Time (Source) Location / / Volume Laterality Blood (Catheter, Central Line / 01/04/2022 8:19 AM 8:28 Central Line Unknown PDT AM PDT (CVC)) Dimas Townsend MD BKR LAB BLOOD ORDERABLES Performing Organization Address City/State/ZIP Code Phon e Number [facility] [address] [facility], [place] LAB[place]ORY ([facility]) WAY [phone] (ABNORMAL) Basic Metabolic Panel (01/04/2022 8:19 AM PDT) Patholo gist Method Time Signature Sodium 140 136 - 145 01/04/2022 [place] mmol/L 9:21 AM [facility] LABORATORY ([facility]) Potassium 3.7 3.5 - 5.0 01/04/2022 [place] mmol/L 9:21 AM [facility] LABORATORY ([facility]) Chloride 99 99 - 109 01/04/2022 [place] mmol/L 9:21 AM [facility] LABORATORY ([facility]) CO2 28 23 - 33 01/04/2022 [place] mmol/L 9:21 AM [facility] LABORATORY ([facility]) Anion Gap 13 5 - 16 01/04/2022 [place] ratio 9:21 AM [facility] LABORATORY ([facility]) Creatinine 3.63 (H) 0.50 - 01/04/2022 [place] 1.30 mg/dL 9:21 AM PDT [facility] LAB[facility]ATORY ([facility]) BUN 57 (H) 8 - 25 01/04/2022 [place] mg/dL 9:21 AM [facility] LABORATORY ([facility]) Glucose 247 (H) 65 - 99 01/04/2022 [place] mg/dL 9:21 AM [facility] LABORATORY ([facility]) Calcium 8.3 (L) 8.5 - 10.2 01/04/2022 [place] mg/dL 9:21 AM [facility] LABORATORY ([facility]) Estimated 21 (L) >=60 01/04/2022 [place] Glomerular mL/min/1.7 9:21 AM [facility] Filtration Rate 3 m2 LABORATORY (eGFR) ([facility]) Comment: Estimated GFR is calculated [...] Volume Laterality Blood (Catheter, Central Line / 01/04/2022 8:19 AM 8:28 Central Line Unknown PDT AM PDT (CVC)) Dimas Townsend MD BKR LAB BLOOD ORDERABLES Performing Organization Address City/State/ZIP Code Phon e Number [facility] [address] [facility] [place] LABORATORY ([facility]) WAY [phone] (ABNORMAL) POC Glucose (01/04/2022 7:28 AM PDT) P athologist Signature Glucose (POC) 323 (H) 65 - 99 01/04/2022 [place] mg/dL 7:41 AM [facility] LABORATORY ([facility]) Specimen Anatomical Collection Method Collection Time Receive d Time (Source) Location / / Volume Laterality Blood 01/04/2022 7:28 AM 7:41 (Capillary) PDT AM PDT Dimas Townsend MD BKR LAB POINT OF CARE TEST D OCKED DEVICE UNSOLICITED RESULTS Performing Organization Address City/State/ZIP Code Phon e Number [facility] [address] [facility] ID LABORATORY ([facility]) WAY [phone] (ABNORMAL) POC Glucose (01/04/2022 6:34 AM PDT) P athologist Signature Glucose (POC) 453 (H) 65 - 99 01/04/2022 [place] mg/dL 6:40 AM PDT [facility] LABORATORY ([facility]) Specimen Anatomical Collection Method Collection Time Receive d Time (Source) Location / / Volume Laterality Blood 01/04/2022 6:34 AM 2 6:40 (Capillary) PDT AM PDT Dimas Chary JOHNSON LAB POINT OF CARE TEST D OCKED DEVICE UNSOLICITED RESULTS Performing Organization Address City/State/ZIP Code Phon e Number [facility] [address] [facility] ID LABORATORY ([facility]) WAY [phone] (ABNORMAL) POC Glucose (01/04/2022 5:20 AM PDT) athologist Signature Glucose (POC) 481 (H) 65 - 99 01/04/2022 [place] mg/dL 5:27 AM PDT [facility] LABORATORY ([facility]) Specimen Anatomical Collection Method Collection Time Receive d Time (Source) Location / / Volume Laterality Blood 01/04/2022 5:20 AM 2 5:27 (Capillary) PDT AM PDT Dimas Chary JOHNSON LAB POINT OF CARE TEST D OCKED DEVICE UNSOLICITED RESULTS Performing Organization Address City/State/ZIP Code Phon e Number [facility] [address] [facility] ID LABORATORY ([facility]) WAY [phone] (ABNORMAL) POC Glucose (01/04/2022 5:18 AM PDT) Analysis Performed At Patho logist Time Signature Glucose (POC) 545 (HH) 65 - 99 01/04/2022 [place] mg/dL 5:27 AM PDT [facility] LABORATORY ([facility]) Specimen Anatomical Collection Method Collection Time Receive d Time (Source) Location / / Volume Laterality Blood 01/04/2022 5:18 AM 2 5:27 (Capillary) PDT AM PDT Dimasfran Townsend MD BKR LAB POINT OF CARE TEST D OCKED DEVICE UNSOLICITED RESULTS Performing Organization Address City/[facility]/ZIP Code Phon e [facility] [address] [facility] [place] LAB[place]ORY ([facility]) WAY [phone] (ABNORMAL) POC Glucose (01/04/2022 4:19 AM PDT) P athologist Signature Glucose (POC) 482 (H) 65 - 99 01/04/2022 [place] mg/dL 4:26 AM PDT [facility] LABORATORY ([facility]) Specimen Anatomical Collection Method Collection Time Receive d Time (Source) Location / / Volume Laterality Blood 01/04/2022 4:19 AM 4:26 (Capillary) PDT AM PDT Dimasfran Townsend MD BKR LAB POINT OF CARE TEST D OCKED DEVICE UNSOLICITED RESULTS Performing Organization Address City/[facility]/ZIP Code Phon e Number [facility] [address] [facility] [place] LAB[place]ORY ([facility]) WAY [phone] Phosphorus (01/04/2022 4:13 AM PDT) P athologist Signature Phosphorus 3.3 2.3 - 4.8 01/04/2022 [facility] mg/dL 5:06 AM [facility] LABORATORY ([facility]) Specimen Anatomical Collection Method Collection Time Receive d Time (Source) Location / / Volume Laterality Blood (Catheter, Central Line / 01/04/2022 4:13 AM 4:24 Central Line Unknown PDT AM PDT (CVC)) Dimasfran Townsend MD BKR LAB BLOOD ORDERABLES Performing Organization Address City/State/ZIP Code Phon e Number [facility] [address] [facility] [place] LABORATORY ([facility]) WAY [phone] (ABNORMAL) Basic Metabolic Panel (01/04/2022 4:13 AM PDT) Patholo gist Method Time Signature Sodium 136 136 - 145 01/04/2022 [place] mmol/L 5:24 AM PDT [facility] LABORATORY ([facility]) Potassium 4.9 3.5 - 5.0 01/04/2022 [place] mmol/L 5:24 AM [facility] LABORATORY ([facility]) Chloride 95 (L) 99 - 109 01/04/2022 [place] mmol/L 5:24 AM [facility] LABORATORY ([facility]) CO2 26 23 - 33 01/04/2022 [place] mmol/L 5:24 AM [facility] LABORATORY ([facility]) Anion Gap 15 5 - 16 01/04/2022 [facility] ratio 5:24 AM [facility] LABORATORY ([facility]) Creatinine 3.80 (H) 0.50 - 01/04/2022 [facility] 1.30 mg/dL 5:24 AM [facility] LABORATORY ([facility]) BUN 59 (H) 8 - 25 01/04/2022 [place] mg/dL 5:24 AM [facility] LABORATORY ([facility]) Glucose 507 (HH) 65 - 99 01/04/2022 [place] mg/dL 5:24 AM [facility] LABORATORY ([facility]) Calcium 8.1 (L) 8.5 - 10.2 01/04/2022 [place] mg/dL 5:24 AM [facility] LABORATORY ([facility]) Estimated 20 (L) >=60 01/04/2022 [facility] Glomerular mL/min/1.7 5:24 AM [facility] Filtration Rate 3 m2 LABORATORY (eGFR) ([facility]) Comment: Estimated GFR is calculated [...] Volume Laterality Blood (Catheter, Central Line / 01/04/2022 4:13 AM 4:24 Central Line Unknown PDT AM PDT (CVC)) Dimas Townsend MD BKR LAB BLOOD ORDERABLES Performing Organization Address City/State/ZIP Code Phon e Number [facility] [address] [facility] [place] LABORATORY ([facility]) WAY [phone] Vancomycin, Random (01/04/2022 4:13 AM PDT) athologist Signature Vancomycin, 19.5 5.0 - 40.0 01/04/2022 [facility] Random ug/mL 5:06 AM PDT MAIN LABORATORY ([facility]) Specimen Anatomical Collection Method / Collection Time Recei pierre Time (Source) Location / Volume Laterality Blood (Venous) Venipuncture / 01/04/2022 4:13 01/05/20 4:24 Unknown AM PDT AM PDT Narrative [facility] LABORATORY ([facility]) - 01/04/2022 5:06 AM PDT Reference Ranges Vancomycin Trough: 5.0-18.0 g/mL Toxic Level = >18.0 g/mL Vancoymcin Peak: 25.0 - 40.0 g/mL Toxic Level = >50 g/mL Dimas Townsend MD BKR LAB BLOOD ORDERABLES Performing Organization Address City/State/ZIP Code Phon e Number [facility] [address] [facility] [place] LABORATORY ([facility]) WAY [phone] (ABNORMAL) POC Glucose (01/04/2022 2:34 AM PDT) athologist Signature Glucose (POC) 205 (H) 65 - 99 01/04/2022 [facility] mg/dL 2:41 AM [facility] LABORATORY ([facility]) Specimen Anatomical Collection Method Collection Time Receive d Time (Source) Location / / Volume Laterality Blood 01/04/2022 2:34 AM 2:41 (Capillary) PDT AM PDT Dimas Townsend MD BKR LAB POINT OF CARE TEST D OCKED DEVICE UNSOLICITED RESULTS Performing Organization Address City/State/ZIP Code Phon e Number [facility] [address] [facility] [place] [place] [place] [facility] ([facility]) [address] [phone] Potassium (01/04/2022 2:28 AM PDT) athologist Signature Potassium 3.9 3.5 - 5.0 01/04/2022 [facility] mmol/L 3:04 AM [facility] LABORATORY ([facility]) Specimen Anatomical Collection Method / Collection Time Recei pierre Time (Source) Location / Volume Laterality Blood (Venous) Venipuncture / 01/04/2022 2:28 01/05/20 22 2:40 Unknown AM PDT AM PDT Dimas Townsend MD BKR LAB BLOOD ORDERABLES Performing Organization Address City/State/ZIP Code Phon e Number [facility] [address] [facility] [place] LABORATORY ([place]) [address] [phone] (ABNORMAL) Magnesium (01/04/2022 2:28 AM PDT) P athologist Signature Magnesium 2.5 (H) 1.7 - 2.4 01/04/2022 [facility] mg/dL 3:04 AM PDT MAIN LABORATORY ([facility]) Specimen Anatomical Collection Method / Collection Time Recei pierre Time (Source) Location / Volume Laterality Blood (Venous) Venipuncture / 01/04/2022 2:28 01/05/20 22 2:40 Unknown AM PDT AM PDT Dimas Townsend MD BKR LAB BLOOD ORDERABLES Performing Organization Address City/State/ZIP Code Phon e Number [facility] [address] [facility] [place] LABORATORY ([place]) [address] [phone] (ABNORMAL) POC Glucose (01/04/2022 1:03 AM PDT) P athologist Signature Glucose (POC) 154 (H) 65 - 99 01/04/2022 [facility] mg/dL 1:10 AM PDT HEALTH MAIN LABORATORY ([facility]) Specimen Anatomical Collection Method Collection Time Receive d Time (Source) Location / / Volume Laterality Blood 01/04/2022 1:03 AM 1:10 (Capillary) PDT AM PDT Dimas Townsend MD BKR LAB POINT OF CARE TEST D OCKED DEVICE UNSOLICITED RESULTS Performing Organization Address City/State/ZIP Code Phon e Number [facility] [address] [facility] [place] LABORATORY ([place]) [address] [phone] (ABNORMAL) POC Glucose (01/04/2022 12:31 AM PDT) P athologist Signature Glucose (POC) 135 (H) 65 - 99 01/04/2022 [facility] mg/dL 12:38 AM PDT [facility] LABORATORY ([facility]) Specimen Anatomical Collection Method Collection Time Receive d Time (Source) Location / / Volume Laterality Blood 01/04/2022 12:31 01/04/2022 (Capillary) AM PDT 12:38 AM PDT Dimas Townsend MD BKR LAB POINT OF CARE TEST D OCKED DEVICE UNSOLICITED RESULTS Performing Organization Address City/State/ZIP Code Phon e Number [facility] [address] [facility] [place] LAB[place]ORY ([facility]) WAY [phone] (ABNORMAL) POC Glucose (01/03/2022 11:41 PM PDT) P athologist Signature Glucose (POC) 101 (H) 65 - 99 01/03/2022 [facility] mg/dL 11:48 PM PDT [facility] LABORATORY ([facility]) Specimen Anatomical Collection Method Collection Time Receive d Time (Source) Location / / Volume Laterality Blood 01/03/2022 11:41 01/03/2022 (Capillary) PM PDT 11:48 PM PDT Dimasfran Townsend MD BKR LAB POINT OF CARE TEST D OCKED DEVICE UNSOLICITED RESULTS Performing Organization Address City/State/ZIP Code Phon e Number [facility] [address] [facility] [place] LABORATORY ([facility]) WAY [phone] Phosphorus (01/03/2022 11:37 PM PDT) athologist Signature Phosphorus 3.2 2.3 - 4.8 01/04/2022 [facility] mg/dL 12:19 AM PDT MAIN LABORATORY ([facility]) Specimen Anatomical Collection Method Collection Time Receive d Time (Source) Location / / Volume Laterality Blood (Catheter, Central Line / 01/03/2022 11:37 01/03 Central Line Unknown PM PDT 11:47 PM PDT (CVC)) Dimas Townsend MD BKR LAB BLOOD ORDERABLES Performing Organization Address City/State/ZIP Code Phon e Number [facility] [address] [facility] [place] [place] [facility] ([place]) [address] [phone] (ABNORMAL) Basic Metabolic Panel (01/03/2022 11:37 PM PDT) [facility] Method Time Signature Sodium 140 136 - 145 01/04/2022 [facility] mmol/L 12:18 AM [facility] LABORATORY ([facility]) Potassium 3.2 (L) 3.5 - 5.0 01/04/2022 [facility] mmol/L 12:18 AM [facility] LABORATORY ([facility]) Chloride 93 (L) 99 - 109 01/04/2022 [facility] mmol/L 12:18 AM [facility] LABORATORY ([facility]) CO2 35 (H) 23 - 33 01/04/2022 [facility] mmol/L 12:18 AM [facility] LABORATORY ([facility]) Anion Gap 12 5 - 16 01/04/2022 [facility] ratio 12:18 AM [facility] LABORATORY ([facility]) Creatinine 4.23 (H) 0.50 - 01/04/2022 [facility] 1.30 mg/dL 12:18 AM [facility] LABORATORY ([facility]) BUN 58 (H) 8 - 25 01/04/2022 [facility] mg/dL 12:18 AM [facility] LABORATORY ([facility]) Glucose 101 (H) 65 - 99 01/04/2022 [facility] mg/dL 12:18 AM [facility] LAB[facility] ([facility]) Calcium 7.7 (L) 8.5 - 10.2 01/04/2022 ANIAK mg/dL 12:18 AM [facility] ([facility]) Estimated 18 (L) >=60 01/04/2022 ANIAK Glomerular mL/min/1.7 12:18 AM [facility] Filtration Rate 3 m2 LABORATORY (eGFR) ([facility]) Comment: Estimated GFR is calculated [...] Volume Laterality Blood (Catheter, Central Line / 01/03/2022 11:37 01/03 Central Line Unknown PM PDT 11:47 PM PDT (CVC)) Dimas Townsend MD BKR LAB BLOOD ORDERABLES Performing Organization Address City/State/ZIP Code Phon e [facility] [address] [place] [facility] ([facility]) WAY [phone] (ABNORMAL) POC Glucose (01/03/2022 10:56 PM PDT) P athologist Signature Glucose (POC) 102 (H) 65 - 99 01/03/2022 AN[place]K mg/dL 11:03 PM PDT [facility] LAB[facility] ([facility]) Specimen Anatomical Collection Method Collection Time Receive d Time (Source) Location / / Volume Laterality Blood 01/03/2022 10:56 01/03/2022 (Capillary) PM PDT 11:03 PM PDT Dimas Townsend MD BKR LAB POINT OF CARE TEST D OCKED DEVICE UNSOLICITED RESULTS Performing Organization Address City/[facility]/ZIP Code Phon e [facility] [address] [place] [facility] ([facility]) WAY [phone] (ABNORMAL) POC Glucose (01/03/2022 10:21 PM PDT) P athologist Signature Glucose (POC) 121 (H) 65 - 99 01/03/2022 [place] mg/dL 10:28 PM PDT [facility] LAB[facility] ([facility]) Specimen Anatomical Collection Method Collection Time Receive d Time (Source) Location / / Volume Laterality Blood 01/03/2022 10:21 01/03/2022 (Capillary) PM PDT 10:28 PM PDT Dimas Townsend MD BKR LAB POINT OF CARE TEST D OCKED DEVICE UNSOLICITED RESULTS Performing Organization Address City/State/ZIP Code Phon [facility] [address] [place] [facility] ([facility]) WAY [phone] (ABNORMAL) POC Glucose (01/03/2022 9:42 PM PDT) P athologist Signature Glucose (POC) 124 (H) 65 - 99 01/03/2022 [place] mg/dL 9:49 PM PDT [facility] ([facility]) Specimen Anatomical Collection Method Collection Time Receive d Time (Source) Location / / Volume Laterality Blood 01/03/2022 9:42 PM 2 9:49 (Capillary) PDT PM PDT Dimas KIMBROUGHR LAB POINT OF CARE TEST D OCKED DEVICE UNSOLICITED RESULTS Performing Organization Address City/State/ZIP Code Phon e Number [place] [address] [place] ([facility]) WAY [phone] (ABNORMAL) POC Glucose (01/03/2022 8:50 PM PDT) athologist Signature Glucose (POC) 149 (H) 65 - 99 01/03/2022 [place] mg/dL 8:57 PM PDT [facility] LAB[facility] ([facility]) Specimen Anatomical Collection Method Collection Time Receive d Time (Source) Location / / Volume Laterality Blood 01/03/2022 8:50 PM 2 8:57 (Capillary) PDT PM PDT Dimas KIMBROUGHR LAB POINT OF CARE TEST D OCKED DEVICE UNSOLICITED RESULTS Performing Organization Address City/[facility]/ZIP Code Phon e Number [facility] [address] [place] ([employer]) WAY [phone] Phosphorus (01/03/2022 8:31 PM PDT) athologist Signature Phosphorus 3.3 2.3 - 4.8 01/03/2022 [facility] mg/dL 9:04 PM [facility] MAIN LABORATORY ([facility]) Specimen Anatomical Collection Method Collection Time Receive d Time (Source) Location / / Volume Laterality Blood (Catheter, Central Line / 01/03/2022 8:31 PM 8:38 Central Line Unknown PDT PM PDT (CVC)) Dimas Townsend MD BKR LAB BLOOD ORDERABLES Performing Organization Address City/State/ZIP Code Phon e Number [place] [facility] [address] [place] [facility] [facility] [address] [phone] (ABNORMAL) Basic Metabolic Panel (01/03/2022 8:31 PM PDT) athologist Signature Sodium 140 136 - 145 01/03/2022 [facility] mmol/L 9:11 PM PDT MAIN LABORATORY ([facility]) Potassium 3.1 (L) 3.5 - 5.0 01/03/2022 [facility] mmol/L 9:11 PM PDT MAIN LABORATORY ([facility]) Comment: Delta most likely due to clinic ally significant change in patient status, subject to provider interpretation Chloride 92 (L) 99 - 109 mmol/L 01/03/2022 9:11 PM [facility] PDT MAIN LABORATORY ([facility]) CO2 34 (H) 23 - 33 mmol/L 01/03/2022 9:11 PM [facility] PDT MAIN LABORATORY ([facility]) Anion Gap 14 5 - 16 ratio 01/03/2022 9:11 PM [facility] PDT MAIN LABORATORY ([facility]) Creatinine 4.51 (H) 0.50 - 1.30 01/03/2022 9:11 PM [facility] mg/dL PDT MAIN LABORATORY ([facility]) BUN 66 (H) 8 - 25 mg/dL 01/03/2022 9:11 PM [facility] PDT MAIN LABORATORY ([facility]) Glucose 179 (H) 65 - 99 mg/dL 01/03/2022 9:11 PM [facility] PDT MAIN LABORATORY ([facility]) Calcium 7.9 (L) 8.5 - 10.2 01/03/2022 9:11 PM [facility] mg/dL PDT MAIN LABORATORY ([facility]) Estimated 17 (L) >=60 01/03/2022 9:11 PM [facility] Glomerular mL/min/1.73 m2 PDT MAIN LABORATOR Y Filtration Rate ([facility]) (eGFR) Comment: Estimated GFR is calculated using the [...] Volume Laterality Blood (Catheter, Central Line / 01/03/2022 8:31 PM 8:38 Central Line Unknown PDT PM PDT (CVC)) Dimas Townsend MD BKR LAB BLOOD ORDERABLES Performing Organization Address City/[facility]/ZIP Code Phon e Number [facility] [address] [place], [place] ([facility]) WAY [phone] Culture, Blood (01/03/2022 8:23 PM PDT) [facility] gist Method Time Signature Blood Culture No Growth 01/07/2022 ANIAK in 4 Days 9:01 PM PDT [facility] LAB[facility] ([facility]) Specimen Anatomical Collection Method / Collection Time Recei pierre Time (Source) Location / Volume Laterality Blood (Upper Venipuncture / 01/03/2022 8:23 01/03/2022 8:48 Arm, Left) Unknown PM PDT PM PDT Narrative [facility] LAB[facility]ATORY ([facility]) - 01/07/2022 9:01 PM PDT If Multiple blood cultures ordered, plea se make sure all associated reports are reviewed. Dimas Townsend MD BKR LAB MICROBIOLOGY ORDERAB LES Performing Organization Address City/[facility]/ZIP Code Phon e Number [facility] [address] [place] [facility] ([facility]) WAY [phone] (ABNORMAL) POC Glucose (01/03/2022 7:53 PM PDT) athologist Signature Glucose (POC) 213 (H) 65 - 99 01/03/2022 [place] mg/dL 8:00 PM PDT [facility] ([facility]) Specimen Anatomical Collection Method Collection Time Receive d Time (Source) Location / / Volume Laterality Blood 01/03/2022 7:53 PM 8:00 (Capillary) PDT PM PDT Dimas Townsend MD BKR LAB POINT OF CARE TEST D OCKED DEVICE UNSOLICITED RESULTS Performing Organization Address City/[facility]/ZIP Code Phon e Number [address] LABORATORY ([facility]) WAY [phone] (ABNORMAL) POC Glucose (01/03/2022 7:00 PM PDT) athologist Signature Glucose (POC) 302 (H) 65 - 99 01/03/2022 [place] mg/dL 7:07 PM PDT [facility]IN LABORATORY ([place]) Specimen Anatomical Collection Method Collection Time Receive d Time (Source) Location / / Volume Laterality Blood 01/03/2022 7:00 PM 7:07 (Capillary) PDT PM PDT Dimasfran JOHNSON LAB POINT OF CARE TEST D OCKED DEVICE UNSOLICITED RESULTS Performing Organization Address City/State/ZIP Code Phon e Number [facility] [address] [place] [facility] ([place]) WAY [phone] Meningitis/Encephalitis Pathogen Panel, PCR, Spinal Fluid (01/03/2022 6:24 PM PDT) [facility] Method Time Signature CSFME Specimen CEREBROSPINAL 01/05/2022 [facility] Source FLUID 2:59 PM LABORATORIES PDT Escherichia coli Negative Negative 01/05/2022 [facility] K1 2:59 PM LABORATORIES PDT Haemophilus Negative Negative 01/05/2022 [facility] influenzae 2:59 PM LABORATORIES PDT Listeria Negative Negative 01/05/2022 [facility] monocytogenes 2:59 PM LABORATORIES PDT Neisseria Negative Negative 01/05/2022 [facility] meningitidis 2:59 PM LABORATORIES PDT Streptococcus Negative Negative 01/05/2022 [facility] agalactiae 2:59 PM LABORATORIES PDT Streptococcus Negative Negative 01/05/2022 [facility] pneumoniae 2:59 PM LABORATORIES PDT Cytomegalovirus Negative Negative 01/05/2022 [facility] 2:59 PM LABORATORIES PDT Enterovirus Negative Negative 01/05/2022 [facility] 2:59 PM LABORATORIES PDT Herpes Simplex Negative Negative 01/05/2022 [facility] Virus 1 2:59 PM LABORATORIES PDT Comment: Testing of spinal fluid for HSV-1/2 by a nother molecular method is recommended if clinical suspic ion is high. Herpes Simplex Virus 2 Negative Negative 01/05/2022 2:59 P M [facility] PDT LABORATORIES Human Herpes Virus 6 Negative Negative 01/05/2022 2:59 PM [facility] PDT LABORATORIES Human Parechovirus Negative Negative 01/05/2022 2:59 PM [facility] PDT LABORATORIES Varicella Zoster Virus Negative Negative 01/05/2022 2:59 P M [facility] PDT LABORATORIES Cryptococcus Negative Negative 01/05/2022 2:59 PM [facility]gattii PDT LABORATORIES Comment: Testing of spinal fluid for cryptococcal antigen is recommended if clinical suspicion is hig h. ADDITIONAL INFORMATIO N This assay is performed using the FDA-cl eared FilmArray ME Panel ([employer] Test Performed by: [place] [address] Senior Interactive Developer: Mario Yu M.D. Ph. D.; CLIA# [id number] Interpretation DNR 01/05/2022 2:59 PM PDT [facility] Specimen (Source) Anatomical Collection Method Collection Time Re ceived Time Location / / Volume Laterality Cerebrospinal fluid Non-blood 01/03/2022 6:24 01/03 (Lumbar Puncture) Collection / PM PDT 8:53 PM PD T Unknown Dimas JOHNSON LAB BODY FLUIDS AND STOO LS ORDERABLES Performing Organization Address City/State/ZIP Code Phon e Number [facility] [address] [place] [address] [facility] Pathology Review (01/03/2022 6:24 PM PDT) [facility] gist Method Time Signature Pathology Leukocytosis. Pathologist agrees with reported values. Discussed by Dr. Britt with Dr. Townsend on 01/04/2022. 01/04/2022 ANIAK Review Reviewed by: Garth Britt MD 8:19 A M [facility] LABORATORY ([facility]) Specimen (Source) Anatomical Collection Method Collection Time Re ceived Time Location / / Volume Laterality Cerebrospinal fluid Non-blood 01/03/2022 6:24 01/03 (Lumbar Puncture) Collection / PM PDT 6:50 PM PD T Unknown Dimas JOHNSON LAB BLOOD ORDERABLES Performing Organization Address City/State/ZIP Code Phon e Number [facility] [address] [facility] [place] LABORATORY ([place]) WAY [phone] (ABNORMAL) Differential, CSF (01/03/2022 6:24 PM PDT) Analysis Performed At Patho logist Time Signature Neutrophils %, 98 (H) 0 - 6 % 01/03/2022 ANIAK Manual 8:33 PM PDT [facility] LAB[facility] ([facility]) Lymphocytes %, 1 (L) 40 - 80 % 01/03/2022 AN[place] Manual 8:33 PM PDT [facility] LAB[facility]ORY ([facility]) Monocytes %, 1 (L) 15 - 45 % 01/03/2022 AN[place] Manual 8:33 PM PDT [facility] LAB[facility] ([facility]) Specimen (Source) Anatomical Collection Method Collection Time Re ceived Time Location / / Volume Laterality Cerebrospinal fluid Non-blood 01/03/2022 6:24 01/03 (Lumbar Puncture) Collection / PM PDT 6:50 PM PD T Unknown Dimas JOHNSON LAB BODY FLUIDS AND STOO LS ORDERABLES Performing Organization Address City/[facility]/ZIP Code Phon e Number [facility] [address] [facility] [place] ([facility]) WAY [phone] (ABNORMAL) Cell Count W/reflex Differential, CSF (01/03/2022 6:24 PM PDT) Patholo gist Method Time Signature Color, Fld Colorless Colorless 01/03/2022 ANIAK 8:32 PM PDT [facility] LAB[facility]ORY ([facility]) Clarity, CSF Clear Clear 01/03/2022 [place] 8:32 PM PDT [facility] LAB[facility]ATORY ([facility]) Red Blood 289 cells/uL 01/03/2022 AN[place] Cell Count, 8:32 PM PDT [facility] CSF LABORATORY ([facility]) Nucleated 80 (HH) 0 - 5 01/03/2022 [place] Cell Count, cells/uL 8:32 PM PDT [facility] CSF LABORATORY ([facility]) CSF TUBE # 3 01/03/2022 AN[place] 8:32 PM PDT [facility] LABORATORY ([facility]) Specimen (Source) Anatomical Collection Method Collection Time Re ceived Time Location / / Volume Laterality Cerebrospinal fluid Non-blood 01/03/2022 6:24 01/03 (Lumbar Puncture) Collection / PM PDT 6:50 PM PD T Unknown Dimas JOHNSON LAB BODY FLUIDS AND STOO LS ORDERABLES Performing Organization Address City/State/ZIP Code Phon e Number [facility] [address] [facility] LAB[facility] ([facility]) WAY [phone] (ABNORMAL) Glucose, CSF (01/03/2022 6:24 PM PDT) P athologist Signature Glucose, CSF 236 (H) 40 - 70 01/03/2022 [facility] mg/dL 8:33 PM PDT MAIN LABORATORY ([facility]) CSF Tube # 2 01/03/2022 [facility] 8:33 PM PDT MAIN LABORATORY ([facility]) Specimen (Source) Anatomical Collection Method Collection Time Re ceived Time Location / / Volume Laterality Cerebrospinal fluid Non-blood 01/03/2022 6:24 01/03 (Lumbar Puncture) Collection / PM PDT 6:50 PM PD T Unknown Narrative [facility] LABORATORY ([facility]) - 01/03/2022 8:33 PM PDT CSF glucose values should be approximate ly 60% of the plasma values and must always be compared with concurrently measured p lasma values for adequate clinical interpretation. Dimas Townsend MD BKR LAB BODY FLUIDS AND STOO LS ORDERABLES Performing Organization Address City/State/ZIP Code Phon e Number [facility] [address] [facility] [place] LAB[place]ORY ([facility]) WAY [phone] Culture, CSF (01/03/2022 6:24 PM PDT) Patholo gist Method Time Signature CSF Culture No Growth SHON 01/06/2022 ANIAK 7:19 AM PDT [facility] LABORATORY ([facility]) Gram Stain No White 01/06/2022 [place] Blood Cells 7:19 AM PDT [facility] seen LABORATORY ([facility]) Gram Stain No organisms 01/06/2022 [place] seen 7:19 AM PDT [facility] LABORATORY ([facility]) Specimen (Source) Anatomical Collection Method Collection Time Re ceived Time Location / / Volume Laterality Cerebrospinal fluid Non-blood 01/03/2022 6:24 01/03 (Lumbar Puncture) Collection / PM PDT 6:50 PM PD T Unknown Narrative [facility] LABORATORY ([facility]) - 01/06/2022 7:19 AM PDT This sample has been spun down for yaneli ntration purposes. Quantification may not correlate between Gram stain and culture . Dimas Townsend MD BKR LAB MICROBIOLOGY ORDERAB LES Performing Organization Address City/[facility]/ZIP Code Phon e Number [facility] [address] [place], [place] LAB[place]ORY ([facility]) WAY [phone] Culture, Blood (01/03/2022 6:24 PM PDT) [facility] Method Time Signature Blood Culture No Growth 01/07/2022 ANIAK in 4 Days 9:01 PM PDT [facility] LABORATORY ([facility]) Specimen Anatomical Collection Method / Collection Time Recei pierre Time (Source) Location / Volume Laterality Blood (Catheter, Venipuncture / 01/03/2022 6:24 2021 8:28 Central Line Unknown PM PDT PM PDT (CVC)) Narrative [facility] LABORATORY ([facility]) - 01/07/2022 9:01 PM PDT If Multiple blood cultures ordered, plea se make sure all associated reports are reviewed. Dimas Townsend MD BKR LAB MICROBIOLOGY ORDERAB LES Performing Organization Address City/[facility]/ZIP Code Phon e Number [facility] [address] [facility] ([facility]) WAY [phone] [place] SPINAL PUNCTURE, LUMBAR, DIAGNOSTIC (01/03/2022 6:13 PM PDT) Dimas Banks MD - 01/03/2022 6: 13 PM PDT Dimas Townsend MD 01/03/2022 6:15 PM Lumbar Puncture Diag Date/Time: 01/03/2022 6:13 PM Performed by: Dimas Townsend MD Authorized by: Dimas Townsend MD Consent: Written consent obtained. Risks and benefits: risks, benefits and alternatives were discussed Consent given by: parent Site marked: the operative site was krystal ed Required items: required blood products, implants, devices, and special equipment available Patient identity confirmed: milton beebe ovided demographic data and hospital-assigned identification number Time out: Immediately prior to procedure a "time out" was called to verify the correct patient, procedure, equipmen t, academic support center director and site/side marked as required. Indications: evaluation for infection an d evaluation for altered mental status Anesthesia: local infiltration Anesthesia: Local Anesthetic: lidocaine 1% without e pinephrine Anesthetic total: 5 mL Preparation: Patient was prepped and ranjana ped in the usual sterile fashion. Lumbar space: L3-L4 interspace Patient's position: left lateral decubit us Needle gauge: 18 Needle type: spinal needle - Quincke tip Needle length: 3.5 in Number of attempts: 1 Fluid appearance: clear Tubes of fluid: 4 Total volume: 12 ml Post-procedure: adhesive bandage applied Patient tolerance: patient tolerated the procedure well with no immediate complications Dimas Townsend MD PROCEDURES (ABNORMAL) POC Lactic Acid (Lactate) (01/03/2022 5:41 PM PDT) P athologist Signature Lactic Acid 3.6 (H) 0.5 - 2.2 01/03/2022 [place] (POC) mmol/L 6:00 PM PDT [facility] LABORATORY ([facility]) Specimen Anatomical Collection Method Collection Time Receive d Time (Source) Location / / Volume Laterality Blood 01/03/2022 5:41 PM 6:00 PDT PM PDT Dimas Townsend MD BKR LAB POINT OF CARE TEST D OCKED DEVICE UNSOLICITED RESULTS Performing Organization Address City/State/ZIP Code Phon e Number [facility] [address] [facility] [place] LABOR[facility]ORY ([facility]) WAY [phone] (ABNORMAL) POC ChemStat (01/03/2022 5:41 PM PDT) Patholo gist Method Time Signature Sodium (POC) 134 (L) 135 - 145 01/03/2022 [place] mmol/L 6:00 PM PDT [facility] LABORATORY ([facility]) Potassium (POC) 3.3 (L) 3.5 - 5.0 01/03/2022 [place] mmol/L 6:00 PM PDT [facility] LABORATORY ([facility]) Chloride (POC) 90 (L) 99 - 109 01/03/2022 [place] mmol/L 6:00 PM [facility] LAB[facility]ATORY ([facility]) Creatinine 5.0 (H) 0.5 - 1.3 01/03/2022 [place] (POC) mg/dL 6:00 PM PDT [facility] LABORATORY ([facility]) eGFR (POC) 13 01/03/2022 [place] 6:00 PM PDT [facility] LAB[facility]ATORY ([facility]) Glucose (POC) 403 (H) 65 - 99 01/03/2022 [place] mg/dL 6:00 PM PDT [facility] LABORATORY ([facility]) Ionized Calcium 3.60 (L) 4.75 - 01/03/2022 [place] (POC) 5.30 mg/dL 6:00 PM PDT [facility] LABORATORY ([facility]) Hemoglobin 11.6 (L) 13.7 - 01/03/2022 [place] (POC) 16.7 g/dL 6:00 PM [facility] LAB[facility]ORY ([facility]) Hematocrit 34.0 (L) 40.0 - 01/03/2022 [place] (POC) 50.0 % 6:00 PM [facility] LAB[facility]ORY ([facility]) Specimen Anatomical Collection Method Collection Time Receive d Time (Source) Location / / Volume Laterality Blood 01/03/2022 5:41 PM 2 6:00 PDT PM PDT Dimas Chary Townsend MD BKR LAB POINT OF CARE TEST D OCKED DEVICE UNSOLICITED RESULTS Performing Organization Address City/State/ZIP Code Phon e Number [facility] [address] [facility] [place] LAB[place]ATORY ([facility]) WAY [phone] (ABNORMAL) POC Blood Gas, Arterial (01/03/2022 5:41 PM PDT) [facility] gist Method Time Signature pH, Arterial 7.56 (H) 7.35 - 01/03/2022 [place] (POC) 7.45 6:00 PM PDT [facility] LABORATORY ([facility]) pH, Arterial 01/03/2022 [place] (Temp Corrected) 6:00 PM [facility] (POC) LABORATORY ([facility]) pCO2, Arterial 36 35 - 45 01/03/2022 [place] (POC) mmHg 6:00 PM PDT [facility] LABORATORY ([facility]) pCO2, Arterial 01/03/2022 [place] (Temp Corrected) 6:00 PM PDT [facility] (POC) LABORATORY ([facility]) pO2, Arterial 111 (H) 70 - 90 01/03/2022 [place] (POC) mmHg 6:00 PM PDT [facility] LABORATORY ([facility]) pO2, Arterial 01/03/2022 [place] (Temp Corrected) 6:00 PM PDT [facility]ALTH [facility]IN (POC) LABORATORY ([facility]) TCO2, Arterial 33 (H) 21 - 28 01/03/2022 [place] (POC) mmol/L 6:00 PM PDT [facility] MAIN LABORATORY ([place]) O2 Sat, Arterial 98.9 (H) 94 - 98 % 01/03/2022 [place] (POC) 6:00 PM PDT [facility] MAIN LABORATORY ([place]) Base Excess, 9.2 (H) -2 - 2 01/03/2022 [place] Arterial (POC) mmol/L 6:00 PM PDT [facility] MAIN LABORATORY ([place]) HCO3, Arterial 32.0 (H) 21 - 27 01/03/2022 [facility] (POC) mmol/L 6:00 PM PDT [facility] MAIN LABORATORY ([place]) Pt. Respiratory 18 01/03/2022 [place] Rate (POC) 6:00 PM PDT [facility] MAIN LABORATORY ([facility]) Liters/Minute 01/03/2022 [place] (POC) 6:00 PM PDT [facility] MAIN LABORATORY ([facility]) Mode (POC) 01/03/2022 [place] 6:00 PM PDT [facility] MAIN LABORATORY ([facility]) FIO2 (POC) 01/03/2022 [place] 6:00 PM PDT [facility] MAIN LABORATORY ([facility]) Peep (POC) 5 01/03/2022 [place] 6:00 PM PDT [facility] MAIN LABORATORY ([facility]) Tidal Volume 420 01/03/2022 [place] (POC) 6:00 PM PDT [facility] MAIN LABORATORY ([facility]) Delivery System 01/03/2022 [facility] (POC) 6:00 PM PDT [facility] MAIN LABORATORY ([facility]) Set Respiratory 01/03/2022 [place] Rate (POC) 6:00 PM PDT [facility] MAIN LABORATORY ([facility]) Peak Inspiratory 01/03/2022 [place] Pressure (POC) 6:00 PM PDT [facility] MAIN LABORATORY ([facility]) Inspiratory Time 01/03/2022 [place] (POC) 6:00 PM PDT [facility] Pressure Support 01/03/2022 [facility] (POC) 6:00 PM PDT [facility] MA[facility] LAB[facility]ATORY ([facility]) Patient Temp 01/03/2022 [place] (POC) 6:00 PM PDT [facility] Specimen Anatomical Collection Method Collection Time Receive d Time (Source) Location / / Volume Laterality Blood 01/03/2022 5:41 PM 2 6:00 PDT PM PDT Dimas KIMBROUGHR LAB POINT OF CARE TEST D OCKED DEVICE UNSOLICITED RESULTS Performing Organization Address City/State/ZIP Code Phon e Number [place] [facility] [address] [place] [facility] ([facility]) WAY [phone] (ABNORMAL) POC Glucose (01/03/2022 5:06 PM PDT) P athologist Signature Glucose (POC) 428 (H) 65 - 99 01/03/2022 [place] mg/dL 5:13 PM PDT [facility] LABORATORY ([facility]) Specimen Anatomical Collection Method Collection Time Receive d Time (Source) Location / / Volume Laterality Blood 01/03/2022 5:06 PM 2 5:13 (Capillary) PDT PM PDT Dimas KIMBROUGHR LAB POINT OF CARE TEST D OCKED DEVICE UNSOLICITED RESULTS Performing Organization Address City/State/ZIP Code Phon e Number ANIAK LANDBA[facility] [address] [place] ([employer]) [address] [phone] Phosphorus (01/03/2022 4:14 PM PDT) athologist Signature Phosphorus 4.1 2.3 - 4.8 01/03/2022 [facility] mg/dL 4:52 PM PDT MAIN LABORATORY ([facility]) Specimen Anatomical Collection Method Collection Time Receive d Time (Source) Location / / Volume Laterality Blood (Catheter, Central Line / 01/03/2022 4:14 PM 4:27 Central Line Unknown PDT PM PDT (CVC)) Dimas Townsend MD BKR LAB BLOOD ORDERABLES Performing Organization Address City/State/ZIP Code Phon e Number [facility] [address] [place] [place] ([place]) [address] [phone] (ABNORMAL) Basic Metabolic Panel (01/03/2022 4:14 PM PDT) P athologist Signature Sodium 136 136 - 145 01/03/2022 [facility] mmol/L 5:01 PM PDT MAIN LABORATORY ([facility]) Potassium 4.2 3.5 - 5.0 01/03/2022 [facility] mmol/L 5:01 PM PDT MAIN LABORATORY ([facility]) Comment: Delta most likely due to clinic ally significant change in patient status, subject to provider interpretation Chloride 86 (L) 99 - 109 mmol/L 01/03/2022 5:01 PM PDT [facility]) CO2 31 23 - 33 mmol/L 01/03/2022 5:01 PM PDT KO OTENAI [facility] MAIN LABORATORY ([facility]) Comment: Delta most likely due to clinic ally significant change in patient status, subject to provider interpretation Anion Gap 19 (H) 5 - 16 ratio 01/03/2022 5:01 PM [facility] PDT MAIN LABORATORY ([facility]) Creatinine 4.63 (H) 0.50 - 1.30 01/03/2022 5:01 PM [facility] mg/dL PDT MAIN LABORATORY ([facility]) BUN 69 (H) 8 - 25 mg/dL 01/03/2022 5:01 PM [facility] PDT MAIN LABORATORY ([facility]) Glucose 491 (H) 65 - 99 mg/dL 01/03/2022 5:01 PM [facility] PDT MAIN LABORATORY ([facility]) Calcium 6.9 (L) 8.5 - 10.2 01/03/2022 5:01 PM [facility] mg/dL PDT MAIN LABORATORY ([facility]) Estimated Glomerular 16 (L) >=60 01/03/2022 5:01 PM [facility] Filtration Rate mL/min/1.73 m2 PDT MAIN LABO RATORY (eGFR) ([facility]) Comment: Estimated GFR is calculated [...] Volume Laterality Blood (Catheter, Central Line / 01/03/2022 4:14 PM 4:27 Central Line Unknown PDT PM PDT (CVC)) Dimas Townsend MD BKR LAB BLOOD ORDERABLES Performing Organization Address City/[facility]/ZIP Code Phon e Number [facility] [address] [facility] ID LABORATORY ([facility]) WAY [phone] POC Lactic Acid (Lactate) (01/03/2022 4:06 PM PDT) athologist Signature Lactic Acid 1.6 0.5 - 2.2 01/03/2022 [facility] (POC) mmol/L 4:15 PM PDT MAIN LABORATORY ([facility]) Specimen Anatomical Collection Method Collection Time Receive d Time (Source) Location / / Volume Laterality Blood 01/03/2022 4:06 PM 2 4:15 PDT PM PDT Dimas Townsend MD BKR LAB POINT OF CARE TEST D OCKED DEVICE UNSOLICITED RESULTS Performing Organization Address [facility]/ZIP Code Phon e [facility] [address] [facility] ID LABORATORY ([facility]) WAY [phone] (ABNORMAL) POC Glucose (01/03/2022 4:06 PM PDT) athologist Signature Glucose (POC) 446 (H) 65 - 99 01/03/2022 ANIAK mg/dL 4:15 PM PDT [facility] MAIN LABORATORY ([facility]) Specimen Anatomical Collection Method Collection Time Receive d Time (Source) Location / / Volume Laterality Blood 01/03/2022 4:06 PM 2 4:15 PDT PM PDT Dimas Townsend MD BKR LAB POINT OF CARE TEST D OCKED DEVICE UNSOLICITED RESULTS Performing Organization Address City/[facility]/ZIP Code Phon e Number [facility] [address] [facility], [place] LABORATORY ([facility]) WAY [phone] POC Potassium (01/03/2022 4:06 PM PDT) athologist Signature Potassium 4.3 3.5 - 5.0 01/03/2022 [facility] (POC) mmol/L 4:15 PM PDT [facility]ORY [facility] Specimen Anatomical Collection Method Collection Time Receive d Time (Source) Location / / Volume Laterality Blood 01/03/2022 4:06 PM 4:15 PDT PM PDT Dimas Townsend MD BKR LAB POINT OF CARE TEST D OCKED DEVICE UNSOLICITED RESULTS Performing Organization Address City/State/ZIP Code [facility]on [facility] Number [facility] [address] [facility] [place] [place] [facility] ([facility]) WAY [phone] XR CHEST 1 VIEW - PA OR AP (01/03/2022 3:33 PM PDT) Anatomical Region Laterality Modality Chest Digital Radiography Specimen (Source) Anatomical Collection Method Collection Time Re ceived Time Location / / Volume Laterality 01/03/2022 3:55 PM PDT Impressions 01/03/2022 3:57 PM PDT IMPRESSION: 1. No evidence of acute cardiopulmonar y disease. 2. Endotracheal tube terminates 3.3 cm from the angella. Narrative 01/03/2022 3:57 PM PDT EXAM: XR CHEST 1 VIEW - PA OR AP HISTORY PROVIDED BY ORDERING PHYSICIAN: eval ETT placement / infiltrates COMPARISON: 01/03/2022 FINDINGS: Endotracheal tube terminates 3 .3 cm from the angella. Endogastric tube terminates in the stomach. Port-A-C ath terminates at the cavoatrial junction. Lungs are clear without consol idation. Cardiac silhouette is within normal limits for size. No pleura l effusion or pneumothorax. Chronic right sixth and seventh rib fractures. Procedure Note Kenji Ruth MD - 01/03/2022Forma tting of this note might be different from the original. EXAM: XR CHEST 1 VIEW - PA OR AP HISTORY PROVIDED BY ORDERING PHYSICIAN: eval ETT placement / infiltrates COMPARISON: 01/03/2022 FINDINGS: Endotracheal tube terminates 3 .3 cm from the angella. Endogastric tube terminates in the stomach. Port-A-C ath terminates at the cavoatrial junction. Lungs are clear without consol idation. Cardiac silhouette is within normal limits for size. No pleura l effusion or pneumothorax. Chronic right sixth and seventh rib fractures. IMPRESSION: 1. No evidence of acute cardiopulmonary disease. 2. Endotracheal tube terminates 3.3 cm f rom the angella. Dimas Townsend MD DIAGNOSTIC RADIOLOGY (ABNORMAL) POC Glucose (01/03/2022 3:07 PM PDT) athologist Signature Glucose (POC) 346 (H) 65 - 99 01/03/2022 ANIAK mg/dL 3:14 PM PDT [facility]ATORY [facility] Specimen Anatomical Collection Method Collection Time Receive d Time (Source) Location / / Volume Laterality Blood 01/03/2022 3:07 PM 3:14 (Capillary) PDT PM PDT Dimasfran Townsend MD BKR LAB POINT OF CARE TEST D OCKED DEVICE UNSOLICITED RESULTS Performing Organization Address City/State/ZIP Code Phon e Number [employer] [facility] [address] [place], [place] LAB[place] ([facility]) WAY [phone] US RETROPERITONEAL (01/03/2022 2:57 PM PDT) Anatomical Region Laterality Modality Abdomen Ultrasound Specimen (Source) Anatomical Collection Method Collection Time Re ceived Time Location / / Volume Laterality 01/03/2022 3:38 PM PDT Impressions 01/03/2022 3:39 PM PDT IMPRESSION: 1. Diffusely increased renal parenchym al echogenicity, compatible with medical renal disease. 2. No hydronephrosis. Narrative 01/03/2022 3:39 PM PDT The lung. EXAM: US RETROPERITONEAL HISTORY: ROSALIO, evaluate for structural pr oblems COMPARISON: 08/16/2021 TECHNICAL DATA: Ultrasound examination o f the kidneys and bladder performed. Doppler interrogation used wh ere necessary. FINDINGS: Right kidney: The right kidney measured 10.4 x 4.9 x 4 .7 cm. Mildly diffusely increased renal parench ymal echogenicity compatible with medical renal disease. No hydronephrosis, solid renal mass, or calculi. Unremarkable perinephric space. Left kidney: The left kidney measured 9.5 x 6.3 x 3.7 cm. Mildly diffusely increased renal parench ymal echogenicity compatible with medical renal disease. No hydronephrosis, solid renal mass, or calculi. Unremarkable perinephric space. Urinary bladder: Decompressed, Mcknight catheter. Other: No other significant findings. Procedure Note Kenji Ruth MD - 01/03/2022Forma tting of this note might be different from the original. The lung. EXAM: US RETROPERITONEAL HISTORY: ROSALIO, evaluate for structural pr oblems COMPARISON: 08/16/2021 TECHNICAL DATA: Ultrasound examination o f the kidneys and bladder performed. Doppler interrogation used wh ere necessary. FINDINGS: Right kidney: The right kidney measured 10.4 x 4.9 x 4 .7 cm. Mildly diffusely increased renal parench ymal echogenicity compatible with medical renal disease. No hydronephrosis, solid renal mass, or calculi. Unremarkable perinephric space. Left kidney: The left kidney measured 9.5 x 6.3 x 3.7 cm. Mildly diffusely increased renal parench ymal echogenicity compatible with medical renal disease. No hydronephrosis, solid renal mass, or calculi. Unremarkable perinephric space. Urinary bladder: Decompressed, Mcknight catheter. Other: No other significant findings. IMPRESSION: 1. Diffusely increased renal parenchymal echogenicity, compatible with medical renal disease. 2. No hydronephrosis. Mustapha Leonard DO ULTRASOUND (ABNORMAL) Urine Drug Screen (01/03/2022 1:48 PM PDT) [facility] Method Time Signature Amphet/Methamphet Negative Negative 01/03/2022 ANIAK Screen, Urine 3:04 PM PDT HEALTH MAIN Random LABORATORY ([facility]) Barbiturates Negative Negative 01/03/2022 ANIAK Screen, Urine 3:04 PM PDT HEALTH MAIN Random LABORATORY ([facility]) Benzodiazepines Negative Negative 01/03/2022 AN[facility] Screen, Urine 3:04 PM PDT [facility] MAIN Random LABORATORY ([facility]) Buprenorphine Negative Negative 01/03/2022 ANIAK Screen, Urine 3:04 PM PDT HEALTH MAIN Random LABORATORY ([facility]) Cocaine Screen, Negative Negative 01/03/2022 ANIAK Urine Random 3:04 PM PDT [facility] MAIN LABORATORY ([facility]) Methadone Screen, Negative Negative 01/03/2022 ANIAK Urine Random 3:04 PM PDT [facility] MAIN LABORATORY ([facility]) Opiates Screen, Negative Negative 01/03/2022 ANIAK Urine Random 3:04 PM PDT [facility] LABORATORY ([facility]) Oxycodone/Oxymorph Negative Negative 01/03/2022 ANIAK one Screen, Urine 3:04 PM PDT [facility] MERLENE N Random LABORATORY ([facility]) Phencyclidine Negative Negative 01/03/2022 ANIAK Screen, Urine 3:04 PM PDT [facility] Random LABORATORY ([facility]) THC Screen, Urine Positive Negative 01/03/2022 ANIAK Random (A) 3:04 PM PDT [facility] LABORATORY ([facility]) Comment: A preliminary positive result i s based on a screening test only. By physician request, preliminary positive results can be sent to [facility] for confirmation using the preferred confirmatory method of anpyzp-kowbmaqoluazmi-rqzhvz mass spectr ometry. Do not use unconfirmed results for legal purposes. Creatinine, Urine 34.2 None Established 01/03/2022 3:04 PM [facility] Random mg/dL [facility] MAIN LABORATORY ([facility]) Specimen Anatomical Collection Method Collection Time Receive d Time (Source) Location / / Volume Laterality Urine (Clean Non-blood 01/03/2022 1:48 PM 2 2:44 Void - Collection / PDT PM PDT midstream) Unknown Narrative [facility] LABORATORY ([facility]) - 01/03/2022 3:04 PM PDT This is only a preliminary [...] (PCP) 5 ng/mL Buprenorphine 50 ng/mL THC Dimas Townsend MD BKR LAB URINE ORDERABLES Performing Organization Address City/State/ZIP Code Phon e Number [facility] [address] [facility] [place], [place] LAB[place]ORY ([facility]) WAY [phone] (ABNORMAL) Urinalysis w/Microscopic and Culture if Indicated (01/03/2022 1:48 PM PDT) [facility] Method Time Signature Color Yellow Straw, 01/03/2022 ANIAK Yellow, 3:03 PM PDT [facility] Light LABORATORY Yellow, Dark ([facility]) Yellow Clarity, Clear Clear 01/03/2022 ANIAK Urine 3:03 PM [facility] LABORATORY ([facility]) Specific 1.015 1.005 - 01/03/2022 ANIAK Jay, 1.030 3:03 PM [facility] Urine LABORATORY ([facility]) pH, Ur 8.5 (H) 5.0 - 7.5 pH 01/03/2022 ANIAK unit 3:03 PM PDT [facility] LABORATORY ([facility]) Protein, 100 (A) Negative 01/03/2022 ANIAK Urine mg/dL 3:03 PM [facility] LABORATORY ([facility]) Glucose, Ur 250 (A) Negative 01/03/2022 ANIAK mg/dL 3:03 PM [facility] LABORATORY ([facility]) Ketones, Ur Negative Negative 01/03/2022 ANIAK mg/dL 3:03 PM [facility] LABORATORY ([facility]) Occult blood Moderate (A) Negative 01/03/2022 ANIAK 3:03 PM [facility] LABORATORY ([facility]) Bilirubin Negative Negative 01/03/2022 ANIAK 3:03 PM [facility] LABORATORY ([facility]) Leukocyte Negative Negative 01/03/2022 ANIAK Esterase, Ur 3:03 PM [facility] LABORATORY ([facility]) Nitrite, Ur Negative Negative 01/03/2022 ANIAK 3:03 PM [facility] LABORATORY ([facility]) Urobilinogen, 0.2 0.2, 1.0 01/03/2022 ANIAK Urine mg/dL 3:03 PM [facility] LABORATORY ([facility]) RBC, Urine 1 <3.0 /HPF 01/03/2022 ANIAK 3:03 PM PDT [facility] LABORATORY ([facility]) WBC, Ur 1 <6 /HPF 01/03/2022 ANIAK 3:03 PM PDT [facility] LABORATORY ([facility]) Squamous 0 <=8 /HPF 01/03/2022 ANIAK Epithelials, 3:03 PM PDT [facility] Ur LABORATORY ([facility]) Bacteria None Seen None Seen 01/03/2022 ANIAK /HPF 3:03 PM PDT [facility] LABORATORY ([facility]) Specimen Anatomical Collection Method Collection Time Receive d Time (Source) Location / / Volume Laterality Urine (Clean Non-blood 01/03/2022 1:48 PM 2 2:44 Void - Collection / PDT PM PDT midstream) Unknown Dimasfran Townsend MD BKR LAB URINE ORDERABLES Performing Organization Address City/State/ZIP Code Phon e Number [facility] [address] [facility] [place] LABORATORY ([facility]) WAY [phone] EKG - STAT (01/03/2022 1:45 PM PDT) P athologist Signature HEART RATE 70 bpm RED ISECG RR Interval 857 ms RED ISE[facility] Atrial Rate 70 ms RED I[facility] P-R Interval 128 ms RED ISE[facility] P Duration 96 ms RED ISE[facility] P Horizontal -3 deg RED I[facility] [place] P Front [place] 77 deg RED ISECG Q Onset 499 ms RED ISECG QRSD Interval 166 ms RED ISECG QT Interval 620 ms RED ISECG QTcB 670 ms RED ISECG QTcF 653 ms RED ISECG QRS Horizontal -26 deg RED ISECG [place] QRS [place] 91 deg RED ISECG I-40 Horizontal 48 deg RED ISECG [place] I-40 Front [place] -54 deg RED ISECG T-40 Horizontal -32 deg RED ISECG [place] T-40 Front [place] 92 deg RED ISECG T Horizontal 167 deg RED ISECG [place] T Wave [place] 183 deg RED I[facility] S-T Horizontal 74 deg RED [facility] [place] S-T Front [place] 114 deg RED I[facility] Specimen (Source) Anatomical Collection Method Collection Time Re ceived Time Location / / Volume Laterality 01/03/2022 1:45 PM PDT Narrative RED I[facility] - 01/04/2022 8:07 AM PDT - ABNORMAL ECG - Sinus rhythm Probable LVH with secondary repol abnr m Abnormal T, probable ischemia, lateral l forrest Prolonged QT interval No previous ECG available for comparison Dimas Townsend MD NURSING TREATMENT ORDERS Performing Organization Address City/State/ZIP Code Phon e Number JAYA ISE[facility] RED I[facility] (ABNORMAL) POC Lactic Acid (Lactate) (01/03/2022 1:30 PM PDT) P athologist Signature Lactic Acid 2.4 (H) 0.5 - 2.2 01/03/2022 ANIAK (POC) mmol/L 1:34 PM PDT [facility] LABORATORY ([facility]) Specimen Anatomical Collection Method Collection Time Receive d Time (Source) Location / / Volume Laterality Blood 01/03/2022 1:30 PM 1:34 PDT PM PDT Dimas Townsend MD BKR LAB POINT OF CARE TEST D OCKED DEVICE UNSOLICITED RESULTS Performing Organization Address City/State/ZIP Code Phon e Number [facility] [address] [facility] [place] LAB[place]ORY ([facility]) WAY [phone] (ABNORMAL) POC ChemStat (01/03/2022 1:30 PM PDT) [facility] Signature Sodium (POC) 133 (L) 135 - 145 01/03/2022 ANIAK mmol/L 1:34 PM PDT [facility]ATORY [facility] Potassium (POC) 2.9 (L) 3.5 - 5.0 01/03/2022 AN[facility] mmol/L 1:34 PM PDT [facility] LABORATORY ([facility]) Chloride (POC) 84 (L) 99 - 109 01/03/2022 ANIAK mmol/L 1:34 PM PDT [facility] LABORATORY ([facility]) Creatinine 5.4 (H) 0.5 - 1.3 01/03/2022 ANIAK (POC) mg/dL 1:34 PM PDT [facility] LABORATORY ([employer]) eGFR (POC) 12 01/03/2022 ANIAK 1:34 PM PDT [facility] LABORATORY ([facility]) Glucose (POC) 347 (H) 65 - 99 01/03/2022 ANIAK mg/dL 1:34 PM [facility] LABORATORY ([facility]) Ionized Calcium 3.30 (L) 4.75 - 01/03/2022 ANIAK (POC) 5.30 mg/dL 1:34 PM [facility] LABORATORY ([facility]) Hemoglobin 11.2 (L) 13.7 - 01/03/2022 ANIAK (POC) 16.7 g/dL 1:34 PM [facility] LABORATORY ([facility]) Hematocrit 33.0 (L) 40.0 - 01/03/2022 ANIAK (POC) 50.0 % 1:34 PM [facility] LABORATORY ([facility]) Specimen Anatomical Collection Method Collection Time Receive d Time (Source) Location / / Volume Laterality Blood 01/03/2022 1:30 PM 2 1:34 PDT PM PDT Dimasfran Townsend MD BKR LAB POINT OF CARE TEST D OCKED DEVICE UNSOLICITED RESULTS Performing Organization Address City/State/ZIP Code Phon e Number [facility] [address] [place] [place] LABORATORY ([facility]) WAY [phone] (ABNORMAL) POC Blood Gas, Arterial (01/03/2022 1:30 PM PDT) [facility] gist Method Time Signature pH, Arterial 7.61 (HH) 7.35 - 01/03/2022 ANIAK (POC) 7.45 1:34 PM [facility] LABORATORY ([facility]) pH, Arterial 01/03/2022 ANIAK (Temp Corrected) 1:34 PM [facility] (POC) LABORATORY ([facility]) pCO2, Arterial 38 35 - 45 01/03/2022 ANIAK (POC) mmHg 1:34 PM [facility] LABORATORY ([facility]) pCO2, Arterial 01/03/2022 ANIAK (Temp Corrected) 1:34 PM [facility] (POC) LABORATORY ([facility]) pO2, Arterial 81 70 - 90 01/03/2022 ANIAK (POC) mmHg 1:34 PM [facility] LABORATORY ([facility]) pO2, Arterial 01/03/2022 AN[facility]K (Temp Corrected) 1:34 PM [facility] (POC) LABORATORY ([facility]) TCO2, Arterial 40 (H) 21 - 28 01/03/2022 ANIAK (POC) mmol/L 1:34 PM PDT [facility] MAIN LABORATORY ([facility]) O2 Sat, Arterial 97.7 94 - 98 % 01/03/2022 ANIAK (POC) 1:34 PM PDT [facility] MAIN LABORATORY ([facility]) Base Excess, 15.9 (H) -2 - 2 01/03/2022 ANIAK Arterial (POC) mmol/L 1:34 PM PDT [facility] MAIN LABORATORY ([facility]) HCO3, Arterial 38.6 (H) 21 - 27 01/03/2022 ANIAK (POC) mmol/L 1:34 PM PDT [facility] MAIN LABORATORY ([facility]) Pt. Respiratory 18 01/03/2022 ANIAK Rate (POC) 1:34 PM PDT [facility] MAIN LABORATORY ([facility]) Liters/Minute 01/03/2022 ANIAK (POC) 1:34 PM PDT [facility] MAIN LABORATORY ([facility]) Mode (POC) AC 01/03/2022 ANIAK 1:34 PM PDT [facility] MAIN LABORATORY ([facility]) FIO2 (POC) 30.0 01/03/2022 ANIAK 1:34 PM PDT [facility] MAIN LABORATORY ([facility]) Peep (POC) 5 01/03/2022 ANIAK 1:34 PM PDT [facility] MAIN LABORATORY ([facility]) Tidal Volume 420 01/03/2022 ANIAK (POC) 1:34 PM PDT [facility] MAIN LABORATORY ([facility]) Delivery System Adult 01/03/2022 ANIAK (POC) Vent 1:34 PM PDT [facility] MAIN LABORATORY ([facility]) Set Respiratory 01/03/2022 ANIAK Rate (POC) 1:34 PM PDT [facility] MAIN LABORATORY ([facility]) Peak Inspiratory 01/03/2022 ANIAK Pressure (POC) 1:34 PM PDT [facility] MAIN LABORATORY ([facility]) Inspiratory Time 01/03/2022 ANIAK (POC) 1:34 PM PDT [facility] MAIN LABORATORY ([facility]) Pressure Support 01/03/2022 ANIAK (POC) 1:34 PM PDT [facility] MAIN LABORATORY ([facility]) Patient Temp 01/03/2022 ANIAK (POC) 1:34 PM PDT [facility] MAIN LABORATORY ([facility]) Specimen Anatomical Collection Method Collection Time Receive d Time (Source) Location / / Volume Laterality Blood 01/03/2022 1:30 PM 2 1:34 PDT PM PDT Dimas Townsend MD BKR LAB POINT OF CARE TEST D OCKED DEVICE UNSOLICITED RESULTS Performing Organization Address City/[facility]/ZIP Code Phon e Number [facility] [address] [place], [place] LABORATORY ([facility]) [address] [phone] HIV Screen (01/03/2022 1:28 PM PDT) [facility] gist Method Time Signature HIV 1/HIV 2 Nonreactive Nonreactive 01/03/2022 ANIAK Antibodies 10:04 PM HEALTH MAIN PDT LABORATORY ([facility]) HIV-1 P24 Nonreactive Nonreactive 01/03/2022 ANIAK Antigen 10:04 PM HEALTH MAIN PDT LABORATORY ([facility]) Specimen Anatomical Collection Method / Collection Time Recei pierre Time (Source) Location / Volume Laterality Blood (Venous) Venipuncture / 01/03/2022 1:28 01/04/20 22 1:33 Unknown PM PDT PM PDT Dimas Townsend MD BKR LAB BLOOD ORDERABLES Performing Organization Address [facility] Code Phon e Number [facility] [address] [facility] [place] LABORATORY ([facility]) WAY [phone] (ABNORMAL) Lipase (01/03/2022 1:28 PM PDT) athologist Signature Lipase 135 (H) 7 - 60 U/L 01/03/2022 [facility] 2:47 PM PDT MAIN LABORATORY ([facility]) Specimen Anatomical Collection Method / Collection Time Recei pierre Time (Source) Location / Volume Laterality Blood (Venous) Venipuncture / 01/03/2022 1:28 01/04/20 22 1:33 Unknown PM PDT PM PDT Dimas Townsend MD BKR LAB BLOOD ORDERABLES Performing Organization Address City/[facility]/ZIP Code Phon e [facility] [address] [facility] [place] LABORATORY ([facility]) WAY [phone] (ABNORMAL) Hepatic Function Panel (01/03/2022 1:28 PM PDT) athologist Signature Total Protein 5.6 (L) 6.3 - 8.0 01/03/2022 ANIAK g/dL 2:47 PM PDT [facility] LABORATORY ([facility]) Albumin 3.0 (L) 3.5 - 5.0 01/03/2022 ANIAK g/dL 2:47 PM PDT [facility] LABORATORY ([facility]) Globulin 2.6 1.8 - 3.5 01/03/2022 ANIAK g/dL 2:47 PM PDT [facility] LABORATORY ([facility]) Albumin/Globul 1.2 1.0 - 2.7 01/03/2022 ANIAK in Ratio ratio 2:47 PM PDT [facility] LABORATORY ([facility]) Total 0.3 0.1 - 1.5 01/03/2022 ANIAK Bilirubin mg/dL 2:47 PM PDT [facility] LAB[facility] ([facility]) Direct <0.2 0.0 - 0.4 01/03/2022 ANIAK Bilirubin mg/dL 2:47 PM PDT [facility] ([facility]) ALT 28 10 - 65 01/03/2022 ANIAK U/L 2:47 PM [facility] LAB[facility]ATORY ([facility]) Alk Phos 107 35 - 115 01/03/2022 ANIAK U/L 2:47 PM [facility] ([facility]) AST 52 (H) 10 - 45 01/03/2022 ANIAK U/L 2:47 PM [facility] ([facility]) Specimen Anatomical Collection Method / Collection Time Recei pierre Time (Source) Location / Volume Laterality Blood (Venous) Venipuncture / 01/03/2022 1:28 01/04/20 22 1:33 Unknown PM PDT PM PDT Dimas Townsend MD BKR LAB BLOOD ORDERABLES Performing Organization Address City/State/ZIP Code Phon e Number [facility] [address] [facility] [place] LABORATORY ([facility]) WAY [phone] (ABNORMAL) Hemoglobin A1c (01/03/2022 1:28 PM PDT) Analysis Performed At Patho logist Time Signature Hemoglobin A1c 8.4 (H) 4.2 - 5.6 01/03/2022 ANIAK % 2:18 PM PDT [facility] ([facility]) Comment: [place] [employer] (ADA) Guid elines. <5.7 Normal 5.7-6.4 Pre-diabetes >=6.5 Diabetes Hemoglobin A1C is based on the average b lood glucose values for the preceding 2 to 3 months. The ADA recommends A1C values of less than 7% as the goal for diabetic therapy. Estimated Average 194 mg/dL 01/03/2022 2:18 PM PDT [facility] Glucose (EAG) LABORATORY ([facility]) Comment: The ADA considers an eAG result of less than 154 mg/dL to be the goal of diabetic therapy. Estimated Average Gluc ose calculated from hemoglobin A1c by use of ADA recommended formula. Specimen Anatomical Collection Method / Collection Time Recei pierre Time (Source) Location / Volume Laterality Blood (Venous) Venipuncture / 01/03/2022 1:28 01/04/20 22 1:33 Unknown PM PDT PM PDT Dimas Townsend MD BKR LAB BLOOD ORDERABLES Performing Organization Address City/State/ZIP Code Phon e Number [facility] [address] [facility] [place] LABORATORY ([place]) [address] [phone] TSH (01/03/2022 1:28 PM PDT) P athologist Signature Thyroid-Stimul 0.33 0.27 - [facility] 4.20 2:14 PM PDT MAIN LABORATOR Y (TSH) uIU/mL ([facility]) Specimen Anatomical Collection Method / Collection Time Recei pierre Time (Source) Location / Volume Laterality Blood (Venous) Venipuncture / 01/03/2022 1:28 01/04/20 22 1:33 Unknown PM PDT PM PDT Dimas Townsend MD BKR LAB BLOOD ORDERABLES Performing Organization Address City/State/ZIP Code Phon e Number [facility] [address] [facility] [place] [facility] ([place]) [address] [phone] (ABNORMAL) CK (01/03/2022 1:28 PM PDT) P athologist Signature CK 662 (H) 55 - 400 [facility] PM PDT [facility] Specimen Anatomical Collection Method / Collection Time Recei pierre Time (Source) Location / Volume Laterality Blood (Venous) Venipuncture / 01/03/2022 1:28 01/04/20 22 1:33 Unknown PM PDT PM PDT Dimas Townsend MD BKR LAB BLOOD ORDERABLES Performing Organization Address City/State/ZIP Code Phon e Number [facility] [address] [facility] [place] LABORATORY ([facility]) WAY [phone] (ABNORMAL) CBC w/Auto Differential (01/03/2022 1:28 PM PDT) [facility] gist Method Time Signature WBC 14.29 (H) 4.00 - 01/03/2022 ANIAK 11.00 1:39 PM PDT [facility] x10E3/uL LABORATORY ([facility]) RBC 3.79 (L) 4.30 - 01/03/2022 ANIAK 5.70 1:39 PM PDT [facility] x10E6/uL LABORATORY ([facility]) Hemoglobin 10.5 (L) 13.7 - 01/03/2022 ANIAK 16.7 g/dL 1:39 PM [facility] ([facility]) Hematocrit 31.5 (L) 40.0 - 01/03/2022 ANIAK 50.0 % 1:39 PM [facility] ([facility]) MCV 83.1 80.0 - 01/03/2022 ANIAK 100.0 fL 1:39 PM [facility] ([facility]) MCH 27.7 27.0 - 01/03/2022 ANIAK 34.0 pg 1:39 PM [facility] LAB[facility]ORY ([facility]) MCHC 33.3 31.5 - 01/03/2022 ANIAK 35.7 g/dL 1:39 PM [facility] LAB[facility] ([facility]) RDW 13.1 11.0 - 01/03/2022 ANIAK 15.0 % 1:39 PM [facility] LAB[facility] ([facility]) Platelet Count 175 150 - 400 01/03/2022 ANIAK x10E3/uL 1:39 PM [facility] LAB[facility] ([facility]) MPV 12.8 (H) 9.4 - 01/03/2022 ANIAK 12.4 fL 1:39 PM [facility] LAB[facility] ([facility]) Neutrophils %, 83.8 (H) 40.0 - 01/03/2022 ANIAK Automated 80.0 % 1:39 PM PDT [facility] LABORATORY ([facility]) Immature 0.5 0.0 - 1.0 01/03/2022 ANIAK Granulocytes %, % 1:39 PM PDT [facility] Automated LABORATORY ([facility]) Lymphocytes %, 5.7 (L) 15.0 - 01/03/2022 ANIAK Automated 45.0 % 1:39 PM PDT [facility] LABORATORY ([facility]) Monocytes %, 9.9 0.0 - 01/03/2022 ANIAK Automated 12.0 % 1:39 PM PDT [facility] LABORATORY ([facility]) Eosinophils %, 0.0 0.0 - 7.0 01/03/2022 ANIAK Automated % 1:39 PM PDT [facility] LABORATORY ([facility]) Basophils %, 0.1 0.0 - 2.0 01/03/2022 ANIAK Automated % 1:39 PM PDT [facility] LABORATORY ([facility]) Neutrophils Abs, 11.97 (H) 2.00 - 01/03/2022 ANIAK Automated 7.30 1:39 PM PDT [facility]IN x10E3/uL LABORATORY ([facility]) Immature 0.07 (H) 0.00 - 01/03/2022 ANIAK Granulocyte Abs, 0.05 1:39 PM PDT [facility]IN Automated x10E3/uL LABORATORY ([facility]) Lymphocytes Abs, 0.82 (L) 1.00 - 01/03/2022 ANIAK Automated 3.40 1:39 PM PDT [facility] MAIN x10E3/uL LABORATORY ([facility]) Monocytes Abs, 1.42 (H) 0.00 - 01/03/2022 ANIAK Automated 0.80 1:39 PM PDT HE[facility] MAIN x10E3/uL LABORATORY ([facility]) Eosinophils Abs, <0.03 0.00 - 01/03/2022 ANIAK Automated 0.50 1:39 PM PDT HE[facility] MAIN x10E3/uL LABORATORY ([facility]) Basophils Abs, <0.03 0.00 - 01/03/2022 ANIAK Automated 0.10 1:39 PM PDT HE[facility] MAIN x10E3/uL LABORATORY ([facility]) nRBC %, 0.0 0.0 - 1.0 01/03/2022 ANIAK Automated /100 WBC 1:39 PM PDT HE[facility] MAIN LABORATORY ([facility]) nRBC Abs, 0.00 0.00 - 01/03/2022 ANIAK Automated 0.01 1:39 PM PDT [facility] MAIN x10E3/uL LABORATORY ([facility]) Specimen Anatomical Collection Method / Collection Time Recei pierre Time (Source) Location / Volume Laterality Blood (Venous) Venipuncture / 01/03/2022 1:28 01/04/20 22 1:33 Unknown PM PDT PM PDT Dimas KIMBROUGHR LAB BLOOD ORDERABLES Performing Organization Address City/State/ZIP Code Phon e Number [facility] [address] [facility] LABORATORY ([facility]) WAY [phone] Phosphorus (01/03/2022 1:28 PM PDT) P athologist Signature Phosphorus 4.2 2.3 - 4.8 01/03/2022 [facility] mg/dL 2:03 PM PDT MAIN LABORATORY ([facility]) Specimen Anatomical Collection Method / Collection Time Recei pierre Time (Source) Location / Volume Laterality Blood (Venous) Venipuncture / 01/03/2022 1:28 01/04/20 22 1:33 Unknown PM PDT PM PDT Dimas KIMBROUGHR LAB BLOOD ORDERABLES Performing Organization Address City/[facility]/ZIP Code Phon e Number [facility] [address] [facility] LABORATORY ([place]) [address] [phone] (ABNORMAL) Magnesium (01/03/2022 1:28 PM PDT) P athologist Signature Magnesium 3.4 (HH) 1.7 - 2.4 01/03/2022 [facility] mg/dL 2:20 PM PDT MAIN LABORATORY ([employer]) Specimen Anatomical Collection Method / Collection Time Recei pierre Time (Source) Location / Volume Laterality Blood (Venous) Venipuncture / 01/03/2022 1:28 01/04/20 22 1:33 Unknown PM PDT PM PDT Dimas JOHNSON LAB BLOOD ORDERABLES Performing Organization Address City/State/ZIP Code [facility] [address] [facility] LABORATORY ([place]) [address] [phone] (ABNORMAL) Lactic Acid, Venous (01/03/2022 1:28 PM PDT) athologist Signature Lactic Acid, 2.9 (H) 0.5 - 2.2 01/03/2022 ANIAK Venous mmol/L 1:37 PM PDT [facility] MAIN LABORATORY ([facility]) Specimen Anatomical Collection Method / Collection Time Recei pierre Time (Source) Location / Volume Laterality Blood (Venous) Venipuncture / 01/03/2022 1:28 01/04/20 22 1:34 Unknown PM PDT PM PDT Narrative [facility] MAIN LABORATORY ([facility]) - 01/03/2022 1:37 PM PDT Consider severe sepsis if Lactate is >2.0 Consider septic shock if Lactate is >4.0 Dimas JOHNSON LAB BLOOD ORDERABLES Performing Organization Address City/[facility] Code Phon e Number [facility] [address] [facility] [place] LABORATORY ([facility]) WAY [phone] Prothrombin Time (PT) and Partial Thromboplastin Time (PTT) (01/03/2022 1:28 PM PDT) athologist Signature Protime 13.8 11.6 - 14.7 01/03/2022 [facility] seconds 1:44 PM PDT MAIN LABORATORY ([facility]) INR 1.1 0.9 - 1.2 01/03/2022 [facility] ratio 1:44 PM PDT MAIN LABORATORY ([facility]) aPTT 32.6 23.5 - 34.6 01/03/2022 [facility] seconds 1:44 PM PDT MAIN LABORATORY ([facility]) Specimen Anatomical Collection Method / Collection Time Recei pierre Time (Source) Location / Volume Laterality Blood (Venous) Venipuncture / 01/03/2022 1:28 01/04/20 22 1:33 Unknown PM PDT PM PDT Dimas JOHNSON LAB BLOOD ORDERABLES Performing Organization Address City/[facility]/ZIP Code Phon e Number [facility] [address] [facility] [place] LABORATORY ([place]) [address] [phone] (ABNORMAL) Basic Metabolic Panel (01/03/2022 1:28 PM PDT) [facility] gist Method Time Signature Sodium 135 (L) 136 - 145 01/03/2022 ANIAK mmol/L 2:03 PM [facility] LAB[facility]ATORY ([facility]) Potassium 3.1 (L) 3.5 - 5.0 01/03/2022 ANIAK mmol/L 2:03 PM PDT [facility] LAB[facility]ORY ([facility]) Chloride 83 (L) 99 - 109 01/03/2022 ANIAK mmol/L 2:03 PM [facility] LAB[facility]ATORY ([facility]) CO2 40 (H) 23 - 33 01/03/2022 ANIAK mmol/L 2:03 PM [facility] LAB[facility]ORY ([facility]) Anion Gap 12 5 - 16 01/03/2022 ANIAK ratio 2:03 PM [facility] LAB[facility]ATORY ([facility]) Creatinine 4.99 (H) 0.50 - 01/03/2022 ANIAK 1.30 mg/dL 2:03 PM [facility] LAB[facility]ORY ([facility]) BUN 71 (H) 8 - 25 01/03/2022 ANIAK mg/dL 2:03 PM [facility] LAB[facility]ORY ([facility]) Glucose 369 (H) 65 - 99 01/03/2022 ANIAK mg/dL 2:03 PM [facility] LAB[facility] ([facility]) Calcium 6.8 (L) 8.5 - 10.2 01/03/2022 ANIAK mg/dL 2:03 PM [facility] LAB[facility]ORY ([facility]) Estimated 15 (L) >=60 01/03/2022 ANIAK Glomerular mL/min/1.7 2:03 PM [facility] Filtration Rate 3 m2 LABORATORY (eGFR) ([facility]) Comment: Estimated GFR is calculated [...] / Volume Laterality Blood (Venous) Venipuncture / 01/03/2022 1:28 01/04/20 22 1:33 Unknown PM PDT PM PDT Dimas Townsend MD BKR LAB BLOOD ORDERABLES Performing Organization Address City/State/ZIP Code Phon e Number [facility] [address] [facility] [place], [place] LABORATORY ([place]) [address] [phone] documented in this encounter Visit Diagnoses Diagnosis Metabolic alkalosis - Primary Alkalosis Acute metabolic encephalopathy Acute renal failure with tubular necrosi s (CMS/HCC) Acute kidney failure with lesion of tubu lar necrosis Acute renal failure (ARF) (CMS/HCC) Acute kidney failure, unspecified Respiratory failure (CMS/HCC) Acute respiratory failure Stage 3a chronic kidney disease (CMS/HCC ) Hyperosmolar hyperglycemic state (HHS) ( [facility]/HCC) Anemia Anemia, unspecified Prolonged Q-T interval on ECG Nonspecific abnormal electrocardiogram ( ECG) (EKG) Non compliance w medication regimen Personal history of noncompliance with m edical treatment, presenting hazards to health documented in this encounter Admitting Diagnoses Diagnosis Acute renal failure (ARF) (CMS/HCC) Acute kidney failure, unspecified Respiratory failure ([facility]/HCC) Acute respiratory failure documented in this encounter Administered Medications Inactive Administered Medications - up to 3 most recent administrations Medication Order MAR Action Action Date Dose Rate Site acetaminophen (TYLENOL 32 mg/mL) Given $ 01/03/2022 7:42 PM PDT 1, 000 mg oral liquid 1,000 mg 1,000 mg, Oral, TID PRN mild pain, temp > 38.5 C, Starting on 01/03/22 at 1836 Until 01/11/22 at 1830 acyclovir (ZOVIRAX) 685 New Bag/Bottle/Cartridge $ 01/05/2022 10:47 685 mg 150 mL/hr mg in 0.9 % NaCl (NS) PM PDT 150 mL IV piggyback Severe infections (PURCH[employer]ING MANAGER, pneumonia, multi-dermatomal zoster, disseminated HSV): 10 mg/kg/dose. Use actual body weight. If obese (actual weight > 20% of ideal weight), use adjusted body weight for dosing. Non-severe infections: 2.5-5 mg/kg/dose based on renal function. Use actual body weight. If obese (actual weight > 20% of ideal weight), use ideal body weight for dosing. Maximum concentration for administration 7 mg/mL., 685 mg (10 mg/kg/DOSE 68.5 kg), Intravenous, at 150 mL/hr Administer over 60 Minutes, Q24S First dose (after last reorder) on Tue01/03/22 at 2200 Until Discontinued, 150 mL New Bag/Bottle/Cartridge $ 01/04/2022 10:34 PM PDT 685 mg 150 mL/hr New Bag/Bottle/Cartridge $ 01/03/2022 10:23 PM PDT 685 mg 150 mL/hr carvedilol (Coreg) tablet 3.125 mg Given $ 01/11/2022 9:04 AM PDT 3.125 mg Consider dose adjustment with hepatic dysfunction. , 3.125 mg, Oral, BID CC First dose on Tue01/06/22 at 0800 Until Discontinued Given $ 01/10/2022 6:17 PM PDT 3.125 mg Given $ 01/10/2022 9:22 AM PDT 3.125 mg cefTRIAXone (ROCEPHIN) New Bag/Bottle/Cartridge $ 01/10/2022 8:46 P M 2 g 200 mL/hr 2 g in 0.9 % NaCl (NS) PDT 100 mL IV piggyback 2 g, Intravenous, at 200 mL/hr Administer over 30 Minutes, Q12S First dose on Tue01/04/22 at 2000 Until Discontinued, 100 mL New Bag/Bottle/Cartridge $ 01/10/2022 9:22 AM PDT 2 g 200 mL/hr New Bag/Bottle/Cartridge $ 01/09/2022 8:07 PM PDT 2 g 200 mL/hr chlorhexidine (PERIDEX) 0.12 % oral soln 15 Given $ 12/17 6:11 AM PDT 15 mL mL 15 mL, Mouth/Throat, BID First dose on Tue01/03/22 at 1800 Until Discontinued Given $ 01/10/2022 6:02 AM PDT 15 mL Given $ 01/09/2022 5:58 PM PDT 15 mL dexamethasone (DECADRON) 4 mg/mL inj 5 m g Given $ 01/08/2022 8:25 PM PDT 5 mg 5 mg, Intravenous, Q12H First dose on Tue01/08/22 at 2100 For 2 doses Last dose on Tue01/09/22 at 0900 dexamethasone (DECADRON) 4 mg/mL inj 5 m g Given $ 01/08/2022 12:11 PM PDT 5 mg 5 mg, Intravenous, Q6S First dose on Tue01/07/22 at 1800 For 4 doses Last dose on Tue01/08/22 at 1200 Given $ 01/08/2022 5:17 AM PDT 5 mg Given $ 01/07/2022 11:50 PM PDT 5 mg dexamethasone PF (pres-free) (DECADRON) 10 Given $ 01/07/2022 9:23 AM PDT 10 mg MG/ML inj 10 mg 10 mg, Intravenous, Q6S First dose on Tue01/03/22 at 2200 Until Discontinued Given $ 01/07/2022 5:01 AM PDT 10 mg Given $ 01/06/2022 9:07 PM PDT 10 mg dexmedetomidine (PRECEDEX) Rate Change 01/06/2022 1:00 AM 0.2 mcg/ kg/hr 3.5 mL/hr 400 mcg in 0.9 % NaCl (NS) PDT 100 mL IV infusion 0.1-1.5 mcg/kg/hr 69.3 kg (1.7325-25.9875 mL/hr, rounded to 1.7-26 mL/hr), Intravenous, TITRATE Starting on Tue01/05/22 at 1315 Until Tue01/06/22 at 0844, 100 mL Rate Change 01/05/2022 10:49 PM PDT 0.1 mcg/kg/hr 1.7 mL/hr Rate Verify 01/05/2022 6:00 PM PDT 0.2 mcg/kg/hr 3.5 mL/hr dextrose 5 % and lactated New Bag/Bottle/Cartridge $ 01/04/2022 4:32 150 mL/hr ringers (D5 LR) IV solution AM PDT Intravenous, at 150 mL/hr, TITRATE Starting on Tue01/03/22 at 2030 Until Tue01/06/22 at 0844, 1,000 mL Rate Change 01/04/2022 2:30 AM PDT 225 mL/hr New Bag/Bottle/Cartridge $ 01/04/2022 12:56 AM PDT 250 mL/hr dextrose 50 % IV solution 25 mL Given $ 01/10/2022 5:29 PM PDT 25 mL 25 mL, Intravenous, PRN blood sugar <, 70 mg/dL, Starting on Tue01/03/22 at 1325 Until Tue01/11/22 at 1830 Given $ 01/07/2022 6:39 AM PDT 25 mL famotidine (PEPCID) tablet 10 mg Given $ 01/11/2022 6:11 AM PDT 10 mg Consider dose adjustment with renal impairment. , 10 mg, Oral, BID First dose on Tue01/09/22 at 0830 Until Discontinued Given $ 01/10/2022 6:17 PM PDT 10 mg Given $ 01/10/2022 6:02 AM PDT 10 mg Famotidine (PF) (PEPCID) 10 mg/mL inj 20 mg Given $ 01/08/2022 5:17 AM PDT 20 mg 20 mg, Intravenous, DAILY First dose (after last modification) on Tue01/03/22 at 1400 Until Discontinued Given $ 01/07/2022 5:01 AM PDT 20 mg Given $ 01/06/2022 5:24 AM PDT 20 mg Famotidine (PF) (PEPCID) 10 mg/mL inj 20 mg Given $ 01/08/2022 8:26 PM PDT 20 mg 20 mg, Intravenous, Q12H First dose (after last modification) on Tue01/08/22 at 2100 Until Discontinued fentanyl (SUBLIMAZE) 50 mcg/mL (2 mL) in j - Pyxis Override Pull Starting on Tue01/03/22 at 1735 For 1 dose Until Tue at 1745 fentanyl (SUBLIMAZE) 50 mcg/mL (2 mL) inj Given $ 2021 9:06 AM PDT 100 mcg 50-100 mcg 50-100 mcg, Intravenous, PRN other, sedation, Starting on Tue01/03/22 at 1737 Until Tue01/06/22 at 0844 Given $ 01/04/2022 1:08 AM PDT 100 mcg Given $ 01/04/2022 12:38 AM PDT 100 mcg fentaNYL citrate (SUBLIMAZE) Rate Verify 01/05/2022 1:00 PM PDT 50 mcg/hr 1 mL/hr 2500 MCG/50ML IV infusion 1-400 mcg/hr (0.02-8 mL/hr, rounded to 0.1-8 mL/hr), Intravenous, TITRATE Starting on Tue01/03/22 at 1345 Until Tue01/06/22 at 0844, 50 mL Rate Verify 01/05/2022 12:00 PM PDT 50 mcg/hr 1 mL/hr New Bag/Bottle/Cartridge $ 01/05/2022 11:48 AM PDT 50 mcg/hr 1 m L/hr heparin 5000 units/mL inj 5,000 Units Given $ 01/11/2022 6:11 AM PDT 5,000 Units 5,000 Units, Subcutaneous, Q8H First dose on Tue01/03/22 at 2200 Until Discontinued Given $ 01/10/2022 8:46 PM PDT 5,000 Units Given $ 01/10/2022 4:00 PM PDT 5,000 Units heparin flush 100 units/mL inj 500 Units Given $ 01/11/2022 3:16 PM PDT 500 Units 500 Units (5 mL), Intravenous, PER PROTOCOL Starting on Tue01/11/22 at 1454 For 1 dose Until Tue01/11/22 at 1516 hydrALAZINE (APRESOLINE) 20 mg/mL inj 10 mg Given $ 01/11/2022 12:11 AM PDT 10 mg 10 mg, Intravenous, Q6H PRN hypertension: first line, SBP>160, Starting on Tue01/04/22 at 0614 Until Tue01/11/22 at 1830 Given $ 01/09/2022 2:57 AM PDT 10 mg Given $ 01/08/2022 8:33 PM PDT 10 mg insulin glargine (Lantus) 100 units/mL Given $ 01/09/2022 9:00 PM PDT 10 Units inj 10 Units 10 Units, Subcutaneous, BEDTIME First dose (after last modification) on Jihan 01/07/22 at 2100 Until Discontinued Given $ 01/08/2022 9:13 PM PDT 10 Units Given $ 01/07/2022 9:41 PM PDT 10 Units insulin glargine (Lantus) 100 units/mL Given $ 01/10/2022 8:00 AM PDT 10 Units inj 10 Units 10 Units, Subcutaneous, QAM CC First dose on 01/09/22 at 0830 Until Discontinued Given $ 01/09/2022 9:30 AM PDT 10 Units insulin glargine (Lantus) 100 units/mL Given $ 01/06/2022 8:32 PM PDT 20 Units inj 20 Units 20 Units, Subcutaneous, BEDTIME First dose on Tue01/06/22 at 0845 Until Discontinued Given $ 01/06/2022 9:38 AM PDT 20 Units insulin lispro (HUMALOG) 100 units/mL Given $ 01/06/2022 5:04 PM P DT 1 Units single dose 0-5 Units 0-5 Units, Subcutaneous, Q6H First dose on 01/06/22 at 1200 Until Discontinued insulin lispro (HUMALOG) 100 units/mL Given $ 01/09/2022 7:58 AM P DT 5 Units single dose 0-5 Units 0-5 Units, Subcutaneous, AC HS First dose (after last modification) on Jihan 01/07/22 at 1130 Until Discontinued Given $ 01/08/2022 9:13 PM PDT 4 Units Given $ 01/08/2022 4:30 PM PDT 5 Units insulin lispro (HUMALOG) 100 units/mL Given $ 01/11/2022 12:38 PM PDT 1 Units single dose 0-8 Units 0-8 Units, Subcutaneous, TID CC First dose on 01/09/22 at 1200 Until Discontinued Given $ 01/11/2022 9:04 AM PDT 1 Units Given $ 01/10/2022 12:00 PM PDT 1 Units insulin lispro (HUMALOG) 100 units/mL Given $ 01/10/2022 3:30 PM P DT 100 Units single dose 100 Units 100 Units, Other, ONCE On 01/10/22 at 1530 For 1 dose insulin lispro (HUMALOG) 100 units/mL Given $ 01/10/2022 12:00 PM PDT 8 Units single dose 8 Units 8 Units, Subcutaneous, TID CC First dose on 01/09/22 at 0830 Until Discontinued Given $ 01/09/2022 6:33 PM PDT 4 Units Given $ 01/09/2022 12:04 PM PDT 8 Units insulin pump parameter 1 New Bag/Bottle/Cartridge $ 01/10/2022 3:30 P M 1 Each Each PDT Subcutaneous, CONTINUOUS, Starting on 01/10/22 at 1530, Until 01/11/22 at 1830 insulin regular (human) Rate Change 01/06/2022 7:30 AM PDT 1.5 Uni ts/hr 1.5 mL/hr 100 units in NS 100 mL IV infusion 0.1 Units/kg/hr 68.5 kg (6.85 mL/hr, rounded to 6.9 mL/hr), Intravenous, TITRATE, Starting on 01/03/22 at 1345, Until Tue01/06/22 at 0856, 100 mL Rate Change 01/06/2022 5:30 AM PDT 1 Units/hr 1 mL/hr Rate Change 01/06/2022 3:35 AM PDT 0.5 Units/hr 0.5 mL/hr lactated ringers (LR) New Bag/Bottle/Cartridge $ 01/04/2022 5:49 AM 150 mL/hr infusion soln PDT Intravenous, at 150 mL/hr, CONTINUOUS Starting on 01/03/22 at 1445 Until Tue01/04/22 at 0750, 1,000 mL New Bag/Bottle/Cartridge $ 01/03/2022 2:30 PM PDT 150 mL/hr lactated ringers (LR) New Bag/Bottle/Cartridge $ 01/05/2022 9:35 PM 100 mL/hr infusion soln PDT Intravenous, at 100 mL/hr, CONTINUOUS Starting on 01/04/22 at 0800 Until Tue01/06/22 at 0802, 1,000 mL Rate Verify 01/05/2022 6:00 PM PDT 100 mL/hr Rate Verify 01/05/2022 5:00 PM PDT 100 mL/hr lidocaine (Xylocaine) 1 % inj - Pyxis Ov erride Pull Contains preservative. Not for intrathec al use., Starting on 01/03/22 at 1740 For 1 dose Until 01/03/22 at 1745 lidocaine (Xylocaine) 1 % inj 20 mL Given $ 01/03/2022 5:45 PM PDT 20 mL Contains preservative. Not for intrathecal use., 20 mL, Intradermal, ONCE On 01/03/22 at 1745 For 1 dose lisinopril (PRINIVIL, ZESTRIL) tablet 20 mg Given $ 01/11/2022 9:04 AM PDT 20 mg Consider dose adjustment with renal impairment. , 20 mg, Oral, DAILY First dose (after last modification) on 01/11/22 at 0845 Until Discontinued lisinopril tablet 10 mg Given $ 01/11/2022 6:11 AM PDT 10 mg Consider dose adjustment with renal impairment. , 10 mg, Oral, DAILY First dose on 01/09/22 at 0830 Until Discontinued Given $ 01/10/2022 6:44 AM PDT 10 mg Given $ 01/09/2022 12:04 PM PDT 10 mg meropenem (MERREM) New Bag/Bottle/Cartridge $ 01/04/2022 8:32 1,000 mg 200 mL/hr 1,000 mg in 0.9 % AM PDT NaCl (NS) 100 mL IV piggyback , 1,000 mg, Intravenous, at 200 mL/hr Administer over 30 Minutes, Q12H First dose on 01/03/22 at 2100 Until Discontinued, 100 mL New Bag/Bottle/Cartridge $ 01/03/2022 9:38 PM PDT 1,000 mg 200 mL/hr metronidazole (FLAGYL) 500 mg IV Given $ 01/10/2022 6:02 AM PD T 500 mg 100 mL/hr piggyback This entry will dispense the whole pre-mixed product as a dose. If a partial dose is needed please see separate record for syringe entry (in some cases the syringe entry may be used even if partial dose is to be placed in a separate, empty bag)., 500 mg, Intravenous, at 100 mL/hr Administer over 60 Minutes, Q8H First dose on 01/04/22 at 2200 Until Discontinued, 100 mL Given $ 01/09/2022 9:34 PM PDT 500 mg 100 mL/hr Given $ 01/09/2022 2:29 PM PDT 500 mg 100 mL/hr midazolam (VERSED) 1 mg/mL (2 mL) inj - Pyxis Override Pull Starting on 01/03/22 at 1735 For 1 dose Until Sun at 1745 midazolam (VERSED) 1 mg/mL (2 mL) inj 2 mg Given $ 01/03/2022 5:45 PM PDT 1 mg 2 mg, Intravenous, ONCE On 01/03/22 at 1745 For 1 dose mirtazapine (Remeron SolTab) tablet Given $ 01/10/2022 8:46 PM PDT 15 mg dispersible 15 mg Consider dose adjustment with renal impairment. , 15 mg, Oral, BEDTIME First dose on 01/09/22 at 2100 Until Discontinued Given $ 01/09/2022 8:07 PM PDT 15 mg piperacillin-tazobactam New Bag/Bottle/Cartridge 01/03/2022 3.375 g 200 mL/hr (ZOSYN) 3.375 g in 0.9 % $ 4:08 PM PDT NaCl (NS) 100 mL IV piggyback 3.375 g, Intravenous, at 200 mL/hr Administer over 30 Minutes, Q6H First dose on 6/19/22 at 1600 Until Discontinued, 100 mL potassium chloride New Bag/Bottle/Cartridge $ 01/03/2022 3:00 PM 20 mEq 50 mL/hr (KCL) 20 MEQ/50ML IV PDT piggyback 20 mEq [40 mEq = 1 dose (20 mEq bag) q1h x 2 doses] [60 mEq = 1 dose (20 mEq bag) q1h x 3 doses] , 20 mEq, Intravenous, at 50 mL/hr, Q1H, 3 doses, First dose on Tue01/03/22 at 1500, Last dose on Tue01/03/22 at 1700, 50 mL potassium chloride New Bag/Bottle/Cartridge $ 01/04/2022 12:43 AM 2 0 mEq 50 mL/hr (KCL) 20 MEQ/50ML IV PDT piggyback 20 mEq [40 mEq = 1 dose (20 mEq bag) q1h x 2 doses] [60 mEq = 1 dose (20 mEq bag) q1h x 3 doses] , 20 mEq, Intravenous, at 50 mL/hr, Q1H, 3 doses, First dose on Tue01/03/22 at 2300, Last dose on Tue01/04/22 at 0100, 50 mL New Bag/Bottle/Cartridge $ 01/03/2022 11:37 PM PDT 20 mEq 50 mL/hr New Bag/Bottle/Cartridge $ 01/03/2022 10:17 PM PDT 20 mEq 50 mL/hr potassium chloride New Bag/Bottle/Cartridge $ 01/05/2022 6:55 AM 20 mEq 50 mL/hr (KCL) 20 MEQ/50ML IV PDT piggyback 20 mEq [40 mEq = 1 dose (20 mEq bag) q1h x 2 doses] [60 mEq = 1 dose (20 mEq bag) q1h x 3 doses] , 20 mEq, Intravenous, at 50 mL/hr, Q1H, 2 doses, First dose on Tue01/05/22 at 0700, Last dose on Tue01/05/22 at 0800, 50 mL propofol 10 mg/mL inj Rate Change 01/05/2022 6:20 AM PDT 15 mcg/kg/min 6.2 mL/hr 25-300 mcg/kg/min 68.5 kg (10.275-123.3 mL/hr, rounded to 10.3-123.3 mL/hr), Intravenous, CONTINUOUS Starting on 01/03/22 at 1345 Until Tue01/06/22 at 0844, 100 mL New Bag/Bottle/Cartridge $ 01/05/2022 5:06 AM PDT 25 mcg/kg/min 10. 3 mL/hr Rate Change 01/05/2022 4:15 AM PDT 25 mcg/kg/min 10.3 mL/hr vancomycin (VANCOCIN) New Bag/Bottle/Cartridge $ 01/03/2022 2:45 PM 1 ,500 mg 1,500 mg in 0.9 % NaCl PDT (NS) 500 mL IV piggyback Infuse over: Doses up to and including 1000 mg=60 min; 1250 mg=90 min; 1500 mg=90 min; 1750 fj=422 min; 2000 gr=132 min. Drug levels should be monitored and dosing adjusted accordingly., 1,500 mg, Intravenous ONCE On 01/03/22 at 1415 For 1 dose 500 mL venlafaxine (Effexor XR) capsule SR 24 hr Given $ 01/10/2022 9 :22 AM PDT 150 mg 150 mg Consider dose adjustment with renal impairment. , 150 mg, Oral, QAM CC First dose on 01/09/22 at 1515 Until Discontinued Given $ 01/09/2022 5:58 PM PDT 150 mg venlafaxine (Effexor XR) capsule SR 24 hr Given $ 01/11/2022 9 :11 AM PDT 225 mg 225 mg Consider dose adjustment with renal impairment. , 225 mg, Oral, QAM CC First dose (after last modification) on 01/11/22 at 0800 Until Discontinued documented in this encounter Active and Recently Administered Medications Times are shown in PDT. Scheduled Medication Order 01/09/2022 01/10/2022 01/11/2022 carvedilol (Coreg) tablet 3.125 mg 0758 (Given $ - Pro vider: Stiven Hylton RN)1758 (Given $ - Provider: Stiven Hylton RN) 0922 (Given $ - Provider: Tran Marcano RN)1817 (Given $ - Provider: Tran Marcano RN) 0904 (Given $ - Provider: Annabella Villa, Nurse Physician Gynecologist)1730 (Canceled Entry - Provider: Processing. Auto - Comment: Automatically canceled at discontinue of medication order) Consider dose adjustment with hepatic dy sfunction. , 3.125 mg, Oral, BID CC First dose on Tue01/06/22 at 0800 Until Discontinued cefTRIAXone (ROCEPHIN) 2 g in 0.9 % NaCl (NS) 100 mL I V piggyback (CANCELED) 0758 (New Bag/Bottle/Cartridge $ - Provider: Stiven Hylton RN)0923 (End of Infusion - Provider: Stiven Hylton RN - Reason: Other)2006 (New Bag/Bottle/Cartridge $ - Provider: Lindsay Roberts, NICOLE, BSN) 921 (New Bag/Bottle/Cartridge $ - Provider: Tran Marcano, NICOLE)2045 (New Bag/Bottle/Cartridge $ - Provider: Avani Easton RN)2121 (End of Infusion - Provider: Avani Easton RN - Reason: Therapy Completed) 2 g, Intravenous, at 200 mL/hr Administe r over 30 Minutes, Q12S First dose on Tue01/04/22 at 2000 Until Discontinued, 100 mL 2100 (End of Infusion - Provider: Lindsay Roberts RN, BSN - Reason: Therapy Completed) chlorhexidine (PERIDEX) 0.12 % oral soln 15 mL 0517 (G iven $ - Provider: Elzbieta Euceda, RN, BSN)1758 (Given $ - Provider: Stiven Hylton RN) 0602 (Given $ - Provider: Avani Easton, RN)1800 (Refused - Provider: Tran Marcano RN) 0611 (Given $ - Provider: Avani Easton, NICOLE)1800 (Canceled Entry - Provider: Processing. Auto - Comment: Automatically canceled at discontinue of medication order) 15 mL, Mouth/Throat, BID First dose on Tue01/03/22 at 1800 Until Discontinued famotidine (PEPCID) tablet 10 mg 0930 (Given $ - Provi akash: Stiven Hylton RN)1758 (Given $ - Provider: Stiven Hylton RN) 0602 (Given $ - Provider: Avani Easton RN)1817 (Given $ - Provider: Tran Marcano RN) 0611 (Given $ - Provider: Avani Easton RN)1800 (Canceled Entry - Provider: Processing. Auto - Comment: Automatically canceled at discontinue of medication order) Consider dose adjustment with renal impa irment. , 10 mg, Oral, BID First dose on 01/09/22 at 0830 Until Discontinued heparin 5000 units/mL inj 5,000 Units 0518 (Given $ - Provider: Elzbieta Euceda, RN, BSN)1429 (Given $ - Provider: Stiven Hylton, RN)2134 (Given $ - Provider: Lindsay Roberts, RN, BSN) 0602 (Given $ - Provider: Avani Easton RN)1600 (Given $ - Provider: Tran Marcano, RN)2046 (Given $ - Provider: Avani Easton RN) 0611 (Given $ - Provider: Avani Easton, RN)1400 (Held - Provider: Tran Marcano, RN) 5,000 Units, Subcutaneous, Q8H First dos e on [place] 01/03/22 at 2200 Until Discontinued heparin flush 100 units/mL inj 500 Units (COMPLETED) 1516 (Given $ - Provider: Avani Hunter RN) 500 Units (5 mL), Intravenous, PER YESICA COL Starting on 01/11/22 at 1454 For 1 dose Until Tue01/11/22 at 1516 insulin glargine (Lantus) 100 units/mL inj 10 Units (C ANCELED) 2100 (Given $ - Provider: Lindsay Roberts RN, BSN) 10 Units, Subcutaneous, BEDTIME First do se (after last modification) on [facility] 01/07/22 at 2100 Until Discontinued insulin glargine (Lantus) 100 units/mL inj 10 Units (C ANCELED) 0930 (Given $ - Provider: tSiven Hylton RN) 0800 (Given $ - Provider: Tran Marcano RN) 10 Units, Subcutaneous, QAM CC First dos e on [facility] 01/09/22 at 0830 Until Discontinued insulin lispro (HUMALOG) 100 units/mL single dose 0-5 Units (CANCELED) 0758 (Given $ - Provider: Stiven Hylton RN - Comment: bg 370) 0-5 Units, Subcutaneous, AC HS First dos e (after last modification) on [place] 01/07/22 at 1130 Until Discontinued insulin lispro (HUMALOG) 100 units/mL single dose 0-8 Units 1205 (Given $ - Provider: Stiven Hylton RN - Comment: bg 300, insulin checked with NICOLE Maldonado)1834 (Given $ - Provider: Stiven Hylton RN) 0800 (Held - Provider: Tran Marcano RN - Comment: results within range)1200 (Given $ - Provider: Tran Mracano RN - Comment: 122 BS)1730 (Held - Provider: Tran Marcano RN - Comment: within limits) 0904 (Given $ - Provider: Annabella golden, Nurse Physician Gynecologist)1238 (Given $ - Provider: Annabella Villa Nurse Physician Gynecologist)1730 (Canceled Entry - Provider: Processing. Auto - Comment: Automatically canceled at discontinue of medication order) 0-8 Units, Subcutaneous, TID CC First do se on 01/09/22 at 1200 Until Discontinued insulin lispro (HUMALOG) 100 units/mL single dose 100 Units (COMPLETED) 1530 (Given $ - Provider: Tran Marcano RN - Comment: vial used for inslin pump. patient sucesffuly primed pump.) 100 Units, Other, ONCE On 01/10/22 at 1530 For 1 dose insulin lispro (HUMALOG) 100 units/mL single dose 8 Un its (CANCELED) 0930 (Given $ - Provider: Stiven Hylton RN)1204 (Given $ - Provider: Stiven Hylton RN)1833 (Given $ - Provider: Stiven Hylton RN - Comment: Per MD only give 5u. 4u+ SS insulin) 0800 (Held - Provider: Tran Marcano RN) 1200 (Given $ - Provider: Tran Marcano RN) 8 Units, Subcutaneous, TID CC First dose on 01/09/22 at 0830 Until Discontinued lisinopril (PRINIVIL, ZESTRIL) tablet 20 mg 0904 (Given $ - Provider: Annabella Villa, Nurse Physician Gynecologist) Consider dose adjustment with renal impa irment. , 20 mg, Oral, DAILY First dose (after last modification) on 01/11/22 at 0845 Until Discontinued lisinopril tablet 10 mg (CANCELED) 1204 (Given $ - Pro vider: Stiven Hylton RN) 0644 (Given $ - Provider: Lindsay Roberts RN, BS N) 0611 (Given $ - Provider: Avani Easton, RN) Consider dose adjustment with renal impa irment. , 10 mg, Oral, DAILY First dose on 01/09/22 at 0830 Until Discontinued metronidazole (FLAGYL) 500 mg IV piggyback (CANCELED) 0517 (Given $ - Provider: Elzbieta Euceda RN, BSN)1429 (Given $ - Provider: Stiven Hylton, NICOLE)1530 (End_of_Infusion - Provider: Stiven Hylton RN - Reason: Other)2134 (Given $ - Provider: Lindsay Roberts RN, BSN) 0602 (Given $ - Provider: Avani Easton RN) This entry will dispense the whole pre-m ixed product as a dose. If a partial dose is needed please see separate record for syringe entry (in some cases the syringe entry may be used even if partial dose 2338 (End_of_Infusion - Provider: Lindsay Roberts RN, BSN - Reason: Therapy Completed) is to be placed in a separate, empty ba g)., 500 mg, Intravenous, at 100 mL/hr Administer over 60 Minutes, Q8H First dose on 01/04/22 at 2200 Until Discontinued, 100 mL mirtazapine (Remeron SolTab) tablet dispersible 15 mg 2006 (Given $ - Provider: Lindsay Roberts RN, BSN) 2045 (Given $ - Provider: Avani Easton, RN) Consider dose adjustment with renal impa irment. , 15 mg, Oral, BEDTIME First dose on 01/09/22 at 2100 Until Discontinued venlafaxine (Effexor XR) capsule SR 24 hr 150 mg (CANC ELED) 1758 (Given $ - Provider: Stiven Hylton, NICOLE) 0922 (Given $ - Provider: Tran Marcano RN) Consider dose adjustment with renal impa irment. , 150 mg, Oral, QAM CC First dose on 01/09/22 at 1515 Until Discontinued venlafaxine (Effexor XR) capsule SR 24 hr 225 mg 0911 (Given $ - Provider: Annabella Villa, Nurse Physician Gynecologist) Consider dose adjustment with renal impa irment. , 225 mg, Oral, QAM CC First dose (after last modification) on Tue01/11/22 at 0800 Until Discontinued Continuous Medication Order 01/09/2022 01/10/2022 01/11/2022 insulin pump parameter 1 Each 1530 (New Bag/Bottle/Cartridge $ - Provider: Tran Marcano RN - Comment: per patient pump. 1 unit per hour basal rate) Subcutaneous, CONTINUOUS, Starting on Laureano n 01/10/22 at 1530, Until Tue01/11/22 at 1830 PRN Medication Order 01/09/2022 01/10/2022 01/11/2022 acetaminophen (TYLENOL 32 mg/mL) oral liquid 1,000 mg 1,000 mg, Oral, TID PRN mild pain, temp > 38.5 C, Starting on 01/03/22 at 1836 Until Tue01/11/22 at 1830 dextrose 50 % IV solution 25 mL 1729 (Given $ - Provider: Tran Marcano RN) 25 mL, Intravenous, PRN blood sugar <, 7 0 mg/dL, Starting on 01/03/22 at 1325 Until Tue01/11/22 at 1830 hydrALAZINE (APRESOLINE) 20 mg/mL inj 10 mg 0257 (Give n $ - Provider: Charissa Warren RN) 0011 (Given $ - Provider: Rupali Easton RN) 10 mg, Intravenous, Q6H PRN hypertension : first line, SBP>160, Starting on Tue01/04/22 at 0614 Until Tue01/11/22 at 1830 documented in this encounter Additional Health Concerns Infection Onset Date Last Indicated Resolved Time Bacterial MeningitisComment: CSF 01/03/2022 01/03/2022 01/07/2022 10:35 AM PDT neg documented as of this encounter Care Teams Investment Sales Assistant Relationship Specialty Start Date End Date Flo Peña MD PCP - General Internal Medicine 01/03/22 [facility] [place] [address] documented as of this encounter
--- OUTSIDE RECORDS SUMMARY | 2022-07-24 16:38 | External Medical Summary | Encounter Summary ---
:1985 Author Organization [facility] [place] [address] Care Team Providers Name Role Phone Unavailable Primary Care Provider Unavailable Encounter Details Date Type Department Care Team Description 02/15/2019 Conversion Encounter [facility] CDA Rupali Negro, Diabetes & MD Endocrinology [address] [facility] [address] [place], [place], [place] [id number] [phone] Social History Tobacco Use Types Packs/Day Years Used Date Smoking Tobacco: Never Assessed Sex Assigned at Date Recorded Not on file documented as of this encounter Plan of Treatment Upcoming Encounters Date Type Specialty Care Team Description 07/26/2022 [facility] [address] [place] [address] (Wo rk) documented as of this encounter Visit Diagnoses Not on filedocumented in this encounter
--- OUTSIDE RECORDS SUMMARY | 2022-07-24 16:38 | External Medical Summary | Encounter Summary ---
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, bilateral; Endocrinology [address] Type 1 diabetes mellitus wit h diabetic autonomic (poly)neuropathy; [facility] [address] Presence of insulin pump (external) (int ernal) [address] [place], [place], [address] [place] [id number] [phone] Social History Tobacco Use Types Packs/Day Years Used Date Smoking Tobacco: Never Assessed Sex Assigned at Date Recorded Not on file documented as of this encounter Plan of Treatment Upcoming Encounters Date Type Specialty Care Team Description 07/26/2022 Office Visit Endocrinology Angela Negro MD [address] [place] [address] (Wo rk) documented as of this encounter Visit Diagnoses Diagnosis Essential (primary) hypertension 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
--- OUTSIDE RECORDS SUMMARY | 2022-07-24 16:38 | External Medical Summary | Summary of Care ---
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) DM autonomic neuropathy(Confirmed) Active Diabetic neuropathy(Confirmed) Active Dry eye syndrome of both lacrimal Active glands(Confirmed) Gastroparesis(Confirmed) Active RBEEL (generalized anxiety Active disorder)(Confirmed) HLD (hyperlipidemia)(Confirmed) Active Macular edema(Confirmed) Active MDD (major depressive Active disorder)(Confirmed) Migraine(Confirmed) Active Posterior subcapsular age-related Active cataract, both eyes(Confirmed) Tardive dyskinesia(Confirmed) Active Type 1 diabetes mellitus(Confirmed) Active 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) NPDR (nonproliferative diabetic Active retinopathy)(Confirmed) PDR (proliferative diabetic Active retinopathy)(Confirmed) Vitreous syneresis of both Active eyes(Confirmed) Allergies, Adverse Reactions, Alerts Substance Reaction Severity Status metoclopramide Disconesia Moderate Active silver containing compounds Rash Mild Acti ve Compazine Neuroleptic Unknown Active NSAIDs Not to take per [employer] 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 Medications carvedilol 3.125 mg, BID Start Date: 08/30/19 Status: OrderedCIALIS 5 mg oral tablet mg tab(s), PO, Daily Start Date: 04/19/19 Status: OrderedcloNIDine 0.2 mg/24 hr transdermal film, extended release 1 patch(es), TOPICAL, Q1 Week, # 13 patch(es), # Refill (s): 11 # Total Refill (s): 11 Start Date: 01/11/20 Stop Date: 12/26/22 Status: Ordereddomperidone 10mg TID daily domperidone 10mg TID daily, See Instructions Start Date: 05/10/19 Status: OrderedfluvoxaMINE 50 mg oral tablet 50 mg = 1 tab(s), PO, Every Bedtime, # 30 tab(s), # Refill (s): 3 # Total Refill (s): 3 Start Date: 05/30/19 Status: Orderedfurosemide 20 mg oral tablet 20 mg = 1 tab(s), PO, Daily, PRN: edema, # 30 tab(s), # Refill (s): 3 # Total Refill (s): 3, as needed for edema/hypertension. Take on days when you are not vomiting Start Date: 11/30/19 Status: Orderedgabapentin 600 mg oral tablet 600 mg = 1 tab(s), PO, TID, # 90 tab(s) Start Date: 05/10/19 Status: OrderedKetamine 30mg odt Ketamine 30mg odt, See Instructions, 30 mg;PRN Start Date: 05/10/19 Status: OrderedLIPITOR 40 mg, PO, Daily, # 30 dose(s), # Refill (s): 11 Start Date: 04/19/19 Status: Orderedlisinopril 5 mg oral tablet 5 mg = 1 tab(s), PO, Daily, # 90 tab(s), # Refill (s): 3 # Total Refill (s): 3 Start Date: 11/30/19 Status: OrderedLORazepam 0.5 mg, PO, TID, PRN: for anxiety, # 30 dose(s), # Refill (s): 4 Start Date: 04/19/19 Status: Orderedmelatonin 10 mg oral capsule See Instructions, PRN: as needed for insomnia, 1 cap(s) PO Start Date: 04/19/19 Status: OrderedMulti Vitamin+ Start Date: 04/19/19 Status: OrderedNovoLOG 100 unit(s)/mL injectable solution See Instructions, # 20 mL, # Refill (s): 0 # Total Refill (s): 0, via insulin pump - patient uses between 50-55u per day. Start Date: 09/29/19 Status: OrderedPHENERGAN 12.5 mg rectal suppository 12.5 mg = 1 supp(s), RECTAL, Q6 Hours, PRN: as needed for nausea/vomiting, # 12 supp(s), # Refill (s): 0 # Total Refill (s): 0 Start Date: 06/11/19 Status: Orderedpromethazine 25 mg/mL injectable solution 12.5 mg = 0.5 mL, IM, Q6 Hours, PRN: as needed for nausea/vomiting, # 14 mL Start Date: 06/29/19 Stop Date: 07/06/19 Status: Orderedprucalopride 1 mg oral tablet 1 mg = 1 tab(s), PO, Daily, # 30 tab(s), # Refill (s): 3 # Total Refill (s): 3 Start Date: 09/24/19 Stop Date: 01/22/20 Status: Orderedsenna 8.6 mg oral tablet See Instructions, PRN as needed for constipation, tab(s) mg PO Every Bedtime Start Date: 04/19/19 Status: Ordered Results Most recent to oldest [Reference Range]: 1 COVID Swab Type Unknown (01/28/20 2:00 PM) COVID Transport Media Type Saline (01/28/20 2:00 PM) Immunizations Given and Recorded Vaccine Date Status Refusal Reason influenza virus vaccine, inactivated 03/18/19 Recorded
--- OUTSIDE RECORDS SUMMARY | 2022-07-24 16:38 | External Medical Summary | Encounter Summary ---
:1985 Author Organization [facility] [place] [address] Care Team Providers Name Role Phone Flo Peña MD Primary Care Provider Encounter Details Date Type Department Care Team Description 01/03/2022 Travel Social History Tobacco Use Types Packs/Day Years [...] Office Visit Endocrinology Angela Negro MD [address] [place] [address] (Wo rk) documented as of this encounter Visit Diagnoses Not on filedocumented in this encounter Additional Health Concerns Infection Onset Date Last Indicated Resolved Time Bacterial MeningitisComment: CSF 01/03/2022 01/03/2022 01/07/2022 10:35 AM PDT neg documented as of this encounter Care Teams Digital Strategist Senior Manager Relationship Specialty Start Date End Date Flo Peña MD PCP - General Internal Medicine 01/03/22 [address] [place] [address] documented as of this encounter
--- OUTSIDE RECORDS SUMMARY | 2022-07-24 16:38 | External Medical Summary | Encounter Summary ---
:1985 Author Organization [facility] [place] [address] Care Team Providers Name Role Phone Unavailable Primary Care Provider Unavailable Encounter Details Date Type Department Care Team Description 11/23/2018 Conversion [facility] CDA Annemarie Negro Encounter Diabetes & Angela Garcia MD mellitus with Endocrinology [address] hyperglycemia [address] [facility] [address] [place], [place], [address] [place] [id number] [phone] Social History Tobacco Use Types Packs/Day Years Used Date Smoking Tobacco: Never Assessed Sex Assigned at Date Recorded Not on file documented as of this encounter Plan of Treatment Upcoming Encounters Date Type Specialty Care Team Description 07/26/2022 Office Visit Endocrinology Angela Negro MD [address] [facility] [address] [place] [address] (Wo rk) documented as of this encounter Visit Diagnoses Diagnosis Type 1 diabetes mellitus with hyperglyce nancy documented in this encounter
--- OUTSIDE RECORDS SUMMARY | 2022-07-24 16:38 | External Medical Summary | Summary of Care ---
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) DM autonomic neuropathy(Confirmed) Active Diabetic neuropathy(Confirmed) Active Dry eye syndrome of both lacrimal Active glands(Confirmed) Gastroparesis(Confirmed) Active REBEL (generalized anxiety Active disorder)(Confirmed) HLD (hyperlipidemia)(Confirmed) Active Macular edema(Confirmed) Active MDD (major depressive Active disorder)(Confirmed) Migraine(Confirmed) Active Posterior subcapsular age-related Active cataract, both eyes(Confirmed) Diabetic retinopathy(Confirmed) Active Tardive dyskinesia(Confirmed) Active Type 1 diabetes mellitus(Confirmed) Active 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) NPDR (nonproliferative diabetic Active retinopathy)(Confirmed) Vitreous syneresis of both Active eyes(Confirmed) Allergies, Adverse Reactions, Alerts Substance Reaction Severity Status metoclopramide Disconesia Moderate Active silver containing compounds Rash Mild Acti ve Compazine Neuroleptic Unknown Active NSAIDs 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 Unknown Act dayan Medications captopril 12.5 mg oral tablet 6.25 mg = 0.5 tab(s), PO, BID, # 30 tab(s), # Refill (s): 0 # Total Refill (s): 0, may take 1 prn for htn Start Date: 05/15/19 Status: OrderedCIALIS 5 mg oral tablet mg tab(s), PO, Daily Start Date: 04/19/19 Status: OrderedcloNIDine 0.1 mg/24 hr transdermal film, extended release 1 patch(es), TOPICAL, Q1 Week, # 4 patch(es) Start Date: 05/10/19 Status: Ordereddomperidone 10mg TID daily domperidone 10mg TID daily, See Instructions Start Date: 05/10/19 Status: OrderedfluvoxaMINE 50 mg oral tablet 50 mg = 1 tab(s), PO, Every Bedtime, # 30 tab(s), # Refill (s): 3 # Total Refill (s): 3 Start Date: 05/30/19 Status: Orderedgabapentin 600 mg oral tablet 600 mg = 1 tab(s), PO, TID, # 90 tab(s) Start Date: 05/10/19 Status: OrderedKetamine 30mg odt Ketamine 30mg odt, See Instructions, 30 mg;PRN Start Date: 05/10/19 Status: OrderedLIPITOR 40 mg, PO, Daily, # 30 dose(s), # Refill (s): 11 Start Date: 04/19/19 Status: OrderedLORazepam 0.5 mg, PO, TID, PRN: for anxiety, # 30 dose(s), # Refill (s): 4 Start Date: 04/19/19 Status: Orderedmelatonin 10 mg oral capsule See Instructions, PRN: as needed for insomnia, 1 cap(s) PO Start Date: 04/19/19 Status: OrderedMulti Vitamin+ Start Date: 04/19/19 Status: OrderedNovalog via Pump Novalog via Pump Start Date: 05/30/19 Status: OrderedPHENERGAN 12.5 mg rectal suppository 12.5 mg = 1 supp(s), RECTAL, Q6 Hours, PRN: as needed for nausea/vomiting, # 12 supp(s), # Refill (s): 0 # Total Refill (s): 0 Start Date: 06/11/19 Status: Orderedsenna 8.6 mg oral tablet See Instructions, PRN as needed for constipation, tab(s) mg PO Every Bedtime Start Date: 04/19/19 Status: Ordered Immunizations Given and Recorded Vaccine Date Status Refusal Reason influenza virus vaccine, inactivated 03/18/19 Recorded
--- OUTSIDE RECORDS SUMMARY | 2022-07-24 16:39 | External Medical Summary | Summary of Care ---
:[address] [facility] ic Address [address] [place] [address]- Care Team Providers Name Role Phone Means Flynn PIERCE Primary Care Physician Encounter FNBR [id number] Date(s): 03/25/20 - 03/25/20 [facility] [address] [place] [address]- [place] Discharge Disposition: *Home (01) Attending Physician: Claritza Mojica MD Vital Signs Most recent to oldest [Reference Range]: 1 Body Mass Index 30.57 kg/m2 (03/25/20 12:59 PM) Blood Pressure [90-138/60-88 mmHg] 122/72 mmHg (03/25/20 12:59 PM) Peripheral Pulse Rate [50-110 bpm] 84 bpm (03/25/20 12:59 PM) Problem List Condition Effective Dates Status Health [...] Unknown Active NSAIDs 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 Start Date: 09/29/19 Status: Orderedomeprazole 20 mg oral delayed release capsule 20 mg = 1 cap(s), PO, BID Before Breakfast and Dinner, # 180 cap(s), # Refill (s): 3 # Total Refill (s): 3 Start Date: 03/25/20 Stop Date: 03/20/21 Status: OrderedPHENERGAN 12.5 mg rectal suppository 12.5 mg = 1 supp(s), RECTAL, Q6 Hours, PRN: as needed for nausea/vomiting, # 12 supp(s), # Refill (s): 0 # Total Refill (s): 0 Start Date: 06/11/19 Status: Orderedpromethazine 25 mg/mL injectable solution 12.5 mg = 0.5 mL, IM, Q6 Hours, PRN: as needed for nausea/vomiting, # 14 mL Start Date: 06/29/19 Stop Date: 07/06/19 Status: Orderedsenna 8.6 mg oral tablet See Instructions, PRN as needed for constipation, tab(s) mg PO Every Bedtime Start Date: 04/19/19 Status: OrderedVITAMIN D3 2000 intl-unit(s) oral capsule 2,000 intl-unit(s) = 1 cap(s), PO, Daily, # 60 cap(s) Start Date: 03/13/20 Status: OrderedZOFRAN 4 mg oral tablet 4 mg = 1 tab(s), PO, Q8 Hours, PRN: for Nausea or Vomiting Start Date: 03/25/20 Status: Ordered Results Most recent to oldest [Reference Range]: 1 eGFR (-German) [60-300 mL/min/1.73m] 44 mL/ min/1.73m *LOW* (03/25/20 12:26 PM) eGFR (NonAfrican-German) [60-300 mL/min/1.73m] 38 mL/min/1.73m *LOW* (03/25/20 12:26 PM) Anion Gap, Blood [6-14 mmol/L] 12 mmol/L (03/25/20 12:26 PM) Calcium Level [8.7-10.4 mg/dL] 9.4 mg/dL (03/25/20 12:26 PM) Carbon Dioxide Content (CO2) [22-31 mmol/L] 27 mmol/L (03/25/20 12:26 PM) Chloride Level [100-112 mmol/L] 102 mmol/L (03/25/20 12:26 PM) Creatinine, Serum [0.72-1.25 mg/dL] 2.19 mg/dL *HI* (03/25/20 12:26 PM) Glucose Random [75-139 mg/dL] 204 mg/dL *HI* (03/25/20 12:26 PM) Potassium Level [3.5-5.3 mmol/L] 4.3 mmol/L (03/25/20 12:26 PM) Sodium Level [136-146 mmol/L] 141 mmol/L (03/25/20 12:26 PM) Urea Nitrogen [9-25 mg/dL] 14 mg/dL (03/25/20 12:26 PM) Immunizations Given and Recorded Vaccine Date Status Refusal Reason influenza virus vaccine, inactivated 03/18/19 Recorded
--- OUTSIDE RECORDS SUMMARY | 2022-07-24 16:39 | External Medical Summary | Summary of Care ---
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
--- OUTSIDE RECORDS SUMMARY | 2022-07-24 16:39 | External Medical Summary | Summary of Care ---
:1985 Author Organization [facility] ic Address [address] [place] [address]- Care Team Providers Name Role Phone Means Fylnn PIERCE Primary Care Physician Encounter FNBR [id number] Date(s): 04/08/20 - 04/08/20 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
--- OUTSIDE RECORDS SUMMARY | 2022-07-24 16:39 | External Medical Summary | Summary of Care ---
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, bilateral (Final) - 01/14/20 Combined forms of age-related cataract, bilateral (Final) - 01/14/20 Vitreous degeneration, bilateral (Final) - 01/14/20 Meibomian gland dysfunction right upper eyelid (Final) - 01/14/20 Meibomian gland dysfunction left upper eyelid (Final) - 01/14/20 Discharge Disposition: *Home (01) Attending Physician: Rosanne [...] Unknown Active NSAIDs 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 per 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 Unknown Act dayan Medications carvedilol 3.125 mg, [...] Most recent to oldest [Reference Range]: 1 Parathyroid Hormone-Intact [11.0-77.0 pg/mL] 49.6 pg/m L (01/14/20 4:31 PM) Vitamin D 25-OH, Total [30.0-60.0 ng/mL] 18.7 ng/mL *LOW* (01/14/20 4:31 PM) eGFR (-Slovak) [60-300 mL/min/1.73m] 46 mL/ min/1.73m *LOW* (01/14/20 4:31 PM) eGFR (NonAfrican-Slovak) [60-300 mL/min/1.73m] 40 mL/min/1.73m *LOW* (01/14/20 4:31 PM) Albumin Level [3.5-5.0 g/dL] 3.6 g/dL (01/14/20 4:31 PM) Alkaline Phosphatase [40-150 U/L] 99 U/L (01/14/20 4:31 PM) Anion Gap, Blood [6-14 mmol/L] 10 mmol/L (01/14/20 4:31 PM) Bilirubin Total Level [0.2-1.2 mg/dL] <0.2 mg/dL (01/14/20 4:31 PM) Calcium Level [8.7-10.4 mg/dL] 9.0 mg/dL (01/14/20 4:31 PM) Carbon Dioxide Content (CO2) [22-31 mmol/L] 31 mmol/L (01/14/20 4:31 PM) Chloride Level [100-112 mmol/L] 100 mmol/L (01/14/20 4:31 PM) Creatinine, Random Urine 102 mg/dL *NA* (01/14/20 4:30 PM) Creatinine, Serum [0.72-1.25 mg/dL] 2.10 mg/dL *HI* (01/14/20 4:31 PM) Glucose Random [75-139 mg/dL] 52 mg/dL *LOW* (01/14/20 4:31 PM) Microalbumin, Random Urine 938.6 mg/L *NA* (01/14/20 4:30 PM) Phosphorus Level [2.3-4.7 mg/dL] 3.5 mg/dL (01/14/20 4:31 PM) Potassium Level [3.5-5.3 mmol/L] 4.0 mmol/L (01/14/20 4:31 PM) Total Protein Plasma [6.1-8.0 g/dL] 6.3 g/dL (01/14/20 4:31 PM) Sodium Level [136-146 mmol/L] 141 mmol/L (01/14/20 4:31 PM) Total Calcium [8.7-10.4 mg/dL] 9.1 mg/dL (01/14/20 4:31 PM) ALT (SGPT) [<=55 U/L] 18 U/L (01/14/20 4:31 PM) AST (SGOT) [10-40 U/L] 17 U/L (01/14/20 4:31 PM) Urea Nitrogen [9-25 mg/dL] 27 mg/dL *HI* (01/14/20 4:31 PM) Microalbumin/Creatinine Ratio, Random [<=29 mg/gm] 920 mg/gm *HI* (01/14/20 4:30 PM) Immunizations Given and Recorded Vaccine Date Status Refusal Reason influenza virus vaccine, inactivated 03/18/19 Recorded
--- OUTSIDE RECORDS SUMMARY | 2022-07-24 16:39 | External Medical Summary | Summary of Care ---
:1985 Author Organization [facility] ic Address [address] [place] [address]- Care Team Providers Name Role Phone Flynn Hammer MD Primary Care Physician Encounter FNBR [id number] Date(s): 05/10/19 - 05/10/19 [facility] [address] [place] [address]- [place] Discharge Disposition: *Home (01) Attending Physician: Chris Bond PharmD Referring Physician: Flynn Hammer MD Vital Signs Most recent to oldest [Reference Range]: 1 Blood Pressure [90-138/60-88 mmHg] 116/78 mmHg (05/10/19 1:29 PM) Peripheral Pulse Rate [50-110 bpm] 95 bpm (05/10/19 1:29 PM) Problem List Condition Effective Dates Status Health Status Informant 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) DM autonomic neuropathy(Confirmed) Active Diabetic neuropathy(Confirmed) Active Gastroparesis(Confirmed) Active REBEL (generalized anxiety Active disorder)(Confirmed) HLD (hyperlipidemia)(Confirmed) Active MDD (major depressive Active disorder)(Confirmed) Migraine(Confirmed) Active Diabetic retinopathy(Confirmed) Active Tardive dyskinesia(Confirmed) Active 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) Type 1 diabetes mellitus(Confirmed) Active Allergies, Adverse Reactions, Alerts Substance Reaction Severity Status metoclopramide Disconesia Moderate Active silver containing compounds Rash Mild Acti ve Compazine Neuroleptic Unknown Active NSAIDs Not to take per District Extension Service Agent Unknown Act dayan Medications captopril 12.5 mg oral tablet PO, TID, # 45 tab(s) Start Date: 04/19/19 Status: OrderedCIALIS 5 mg oral tablet mg tab(s), PO, Daily Start Date: 04/19/19 Status: OrderedcloNIDine 0.1 mg/24 hr transdermal film, extended release 1 patch(es), TOPICAL, Q1 Week, # 4 patch(es) Start Date: 05/10/19 Status: Ordereddomperidone 10mg TID daily domperidone 10mg TID daily, See Instructions Start Date: 05/10/19 Status: Orderedgabapentin 600 mg oral tablet 600 mg = 1 tab(s), PO, TID, # 90 tab(s) Start Date: 05/10/19 Status: OrderedKetamine 30mg odt Ketamine 30mg odt, See Instructions, 30 mg Start Date: 05/10/19 Status: OrderedLIPITOR 40 mg, PO, Daily, # 30 dose(s), # Refill (s): 11 Start Date: 04/19/19 Status: OrderedLORazepam 0.5 mg, PO, TID, PRN: for anxiety, # 30 dose(s), # Refill (s): 4 Start Date: 04/19/19 Status: Orderedmelatonin 10 mg oral capsule mg cap(s), PO, Every Bedtime Start Date: 04/19/19 Status: OrderedMulti Vitamin+ Start Date: 04/19/19 Status: Orderednortriptyline 10 mg oral capsule 10 mg = 1 cap(s), PO, Daily, # 30 Start Date: 05/10/19 Status: OrderedPHENERGAN 12.5 mg rectal suppository mg supp(s), RECTAL, Q6 Hours Start Date: 04/19/19 Status: OrderedraNITIdine 150 mg, PO, BID, # 60 dose(s), # Refill (s): 11 Start Date: 04/19/19 Status: Orderedsenna 8.6 mg oral tablet mg = tab(s), PO, Every Bedtime Start Date: 04/19/19 Status: Orderedvenlafaxine 150 mg oral capsule, extended release 150 mg = 1 cap(s), PO, Daily, # 30 cap(s) Start Date: 05/10/19 Status: Ordered
--- OUTSIDE RECORDS SUMMARY | 2022-07-24 16:39 | External Medical Summary | Summary of Care ---
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
--- OUTSIDE RECORDS SUMMARY | 2022-07-24 16:39 | External Medical Summary | Summary of Care ---
:1985 Author Organization [facility] ic Address [address] [place] [address]- Care Team Providers Name Role Phone Means Flynn PIERCE Primary Care Physician Encounter FNBR [id number] Date(s): 06/05/19 - 06/05/19 [facility] [address] [place] [address]- [place] Discharge Disposition: *Home () Attending Physician: Chris Bond PharmD Vital Signs Most recent to oldest [Reference Range]: 1 Blood Pressure [90-138/60-88 mmHg] 124/80 mmHg (06/05/19 2:35 PM) Peripheral Pulse Rate [50-110 bpm] 67 bpm (06/05/19 2:35 PM) Problem List Condition Effective Dates Status [...] Unknown Active NSAIDs Not to take per Manager Data Warehousing Unknown Act dayan Medications captopril 12.5 mg [...] 05/30/19 Status: OrderedPHENERGAN 12.5 mg rectal suppository See Instructions, PRN: as needed for nausea/vomiting, supp(s) mg RECTAL Q6 Hours Start Date: 04/19/19 Status: Orderedsenna 8.6 mg oral tablet See Instructions, PRN as needed for constipation, tab(s) mg PO Every Bedtime Start Date: 04/19/19 Status: Ordered Immunizations Given and Recorded Vaccine Date Status Refusal Reason influenza virus vaccine, inactivated 03/18/19 Recorded
--- OUTSIDE RECORDS SUMMARY | 2022-07-24 16:39 | External Medical Summary | Summary of Care ---
:1985 Author Organization [facility] Address [address] [place] [address]- Care Team Providers Name Role Phone Means Flynn PIERCE Primary Care Physician Encounter FNBR [id number] Date(s): 05/29/19 - 05/29/19 [facility] [address] [facility] [place] [address]- [place] Encounter Diagnosis Gastroparesis (Discharge Diagnosis) - 05/29/19 Elevated serum creatinine (Discharge Diagnosis) - 05/29/19 Discharge Disposition: *Home () Attending Physician: Linden Greene MD Vital Signs Most recent to oldest [Reference Range]: 1 Blood Pressure [90-138/60-88 mmHg] 145/85 mmHg *HI* (05/29/19 5:03 PM) Peripheral Pulse Rate [50-110 bpm] 98 bpm (05/29/19 11:11 AM) Problem List Condition Effective Dates Status Health [...] Unknown Active NSAIDs Not to take per Cotton Tipper Unknown Act daayn Medications captopril 12.5 mg oral tablet 6.25 [...] 30 cap(s) Start Date: 05/10/19 Status: Ordered Results Most recent to oldest [Reference Range]: 1 Neutrophils, Absolute Count [2.0-8.5 x10(9)/L] 10.5 x1 0(9)/L *HI* (05/29/19 12:26 PM) Lymphocytes, Absolute Count [1.0-4.5 x10(9)/L] 1.1 x10 (9)/L (05/29/19 12:26 PM) Monocytes, Absolute Count [0.1-0.9 x10(9)/L] 0.7 x10(9 )/L (05/29/19 12:26 PM) Eosinophils, Absolute Count [0.0-0.5 x10(9)/L] 0.0 x10 (9)/L (05/29/19 12:26 PM) Basophils, Absolute Count [0.0-0.2 x10(9)/L] 0.1 x10(9 )/L (05/29/19 12:26 PM) Point of Care Creatinine [0.7-1.3 mg/dL] 2.0 mg/dL 1 *HI* (05/29/19 4:59 PM) eGFR (-Costa Rican) [60-300 mL/min/1.73m] 38 mL/ min/1.73m *LOW* (05/29/19 12:26 PM) eGFR (NonAfrican-[place] Rican) [60-300 mL/min/1.73m] 33 mL/min/1.73m *LOW* (05/29/19 12:26 PM) Epithelial Cells 1+ (05/29/19 3:50 PM) UA RBC Auto 1+ *ABN* (05/29/19 3:50 PM) Albumin Level [3.5-5.0 g/dL] 4.4 g/dL (05/29/19 12:26 PM) Alkaline Phosphatase [40-150 U/L] 140 U/L (05/29/19 12:26 PM) Anion Gap, Blood [6-14 mmol/L] 11 mmol/L (05/29/19 12:26 PM) Basophils, Percent 0.7 % *NA* (05/29/19 PM) Bilirubin Total Level [0.2-1.2 mg/dL] 0.4 mg/dL (05/29/19 12:26 PM) Blood, Urine [negative] TRACE *ABN* (05/29/19 3:50 PM) Calcium Level [8.7-10.4 mg/dL] 10.3 mg/dL (05/29/19: PM) Carbon Dioxide Content (CO2) [22-31 mmol/L] 34 mmol/L *HI* (05/29/19: PM) Chloride Level [100-112 mmol/L] 93 mmol/L *LOW* (05/29/19: PM) Creatinine, Serum [0.72-1.25 mg/dL] 2.48 mg/dL *HI* (05/29/19: PM) Eosinophils, Percent 0.0 % *NA* (05/29/19: PM) Glucose Random [75-139 mg/dL] 369 mg/dL *HI* (05/29/19 12: PM) Glucose, Qualitative Urine [negative] 4+ *ABN* (05/29/19 3:50 PM) Neutrophils, Percent 84.8 % *NA* (05/29/19: PM) Hematocrit [39-50 %] 40 % (05/29/19: PM) Ketones, Urine [negative] trace *NA* (05/29/19 3:50 PM) Lipase Level [8-78 U/L] <21 U/L (05/29/19: PM) Lymphocytes, Percent 8.7 % *NA* (05/29/19: PM) Magnesium Level [1.8-2.8 mg/dL] 2.9 mg/dL *HI* (05/29/19: PM) Mean Corpuscular HGB [28-34 pg] 30 pg (05/29/19 PM) Mean Corpuscular HGB Concentrn [33-36 g/dL] 34 g/dL (05/29/19: PM) Mean Corpuscular Volume [80-100 fL] 88 fL (05/29/19: PM) Monocytes, Percent 5.8 % *NA* (05/29/19 PM) pH, Urine [5.0-8.0] 8.5 *ABN* (05/29/19 3:50 PM) Platelet Count [150-400 x10(9)/L] 331 x10(9)/L (05/29/19 PM) Potassium Level [3.5-5.3 mmol/L] 4.9 mmol/L (05/29/19: PM) Total Protein Plasma [6.1-8.0 g/dL] 8.4 g/dL *HI* (05/29/19 PM) Protein, Urine [negative] 4+ *ABN* (05/29/19 3:50 PM) RBC Distribution Width [12.0-16.0 %] 13.5 % (05/29/19 PM) Red Blood Cell Count [4.27-5.57 x10(12)/L] 4.60 x10(12 )/L (05/29/19: PM) Sodium Level [136-146 mmol/L] 138 mmol/L (05/29/19: PM) Specific Cardale, Urine [1.005-1.030] 1.012 (05/29/19 3:50 PM) ALT (SGPT) [<=55 U/L] 52 U/L (05/29/19: PM) AST (SGOT) [10-40 U/L] 33 U/L (05/29/19:26 PM) U Sediment See Microscopy (05/29/19 3:50 PM) Urea Nitrogen [9-25 mg/dL] 26 mg/dL *HI* (05/29/19: PM) Urine C/S If Indicated Not Indicated (05/29/19 3:50 PM) Urine Leukocyte Esterase [negative] negative *NA* (05/29/19 3:50 PM) Urine Nitrite [negative] negative *NA* (05/29/19 3:50 PM) White Blood Cell Count [3.5-11.0 x10(9)/L] 12.4 x10(9) /L *HI* (05/29/19 12:26 PM) Hemoglobin [13.4-17.0 g/dL] 13.8 g/dL (05/29/19 12:26 PM) Glucose Fingerstick [75-139 mg/dL] 310 mg/dL 2 *HI* (05/29/19 2:34 PM) 1Result Comment: Performed At:[address] [place], [place], [id number] Comment: Performed At:[address] [facility], [place], [address]
--- OUTSIDE RECORDS SUMMARY | 2022-07-24 16:39 | External Medical Summary | Summary of Care ---
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
--- OUTSIDE RECORDS SUMMARY | 2022-07-24 16:39 | External Medical Summary | Summary of Care ---
:1985 Author Organization [facility] Address [address] [place] [address]- Care Team Providers Name Role Phone Means Flynn PIERCE Primary Care Physician Encounter FNBR [id number] Date(s): 04/24/19 - 04/25/19 [facility] [address] [place] [address]- Center States Encounter Diagnosis Nausea and vomiting (Discharge Diagnosis) - 04/25/19 Nausea with vomiting, unspecified (Final) - 04/25/19 Type 1 diabetes mellitus without complications (Final) - 04/25/19 Chronic kidney disease, stage 3 (moderate) (Final) - 04/25/19 Discharge Disposition: *Home () Attending Physician: Nas Wagoner MD Vital Signs Most recent to oldest [Reference Range]: 1 Blood Pressure [90-138/60-88 mmHg] 136/83 mmHg (04/25/19 2:59 AM) Peripheral Pulse Rate [50-110 bpm] 113 bpm *HI* (04/24/19 10:51 PM) Problem List Condition Effective Dates Status [...] Active NSAIDs Not to take per Manager Behavior Unknown Act dayan Medications captopril 12.5 mg oral tablet PO, TID, # 45 tab(s) Start Date: 04/19/19 Status: OrderedCIALIS 5 mg oral tablet mg tab(s), PO, Daily Start Date: 04/19/19 Status: OrderedcloNIDine 0.1 mg, PO, Every Bedtime, # 30 dose(s), # Refill (s): 11 Start Date: 04/19/19 Status: Orderedgabapentin 300 mg, PO, TID, # 90 dose(s), # Refill (s): 11 Start Date: 04/19/19 Status: OrderedLIPITOR 40 mg, PO, Daily, # 30 dose(s), # Refill (s): 11 Start Date: 04/19/19 Status: OrderedLORazepam 0.5 mg, PO, TID, PRN: for anxiety, # 30 dose(s), # Refill (s): 4 Start Date: 04/19/19 Status: Orderedmelatonin 10 mg oral capsule mg cap(s), PO, Every Bedtime Start Date: 04/19/19 Status: OrderedMulti Vitamin+ Start Date: 04/19/19 Status: Orderednortriptyline 10 mg, PO, TID, # 90 dose(s), # Refill (s): 11 Start Date: 04/19/19 Status: OrderedPHENERGAN 12.5 mg rectal suppository mg supp(s), RECTAL, Q6 Hours Start Date: 04/19/19 Status: OrderedraNITIdine 150 mg, PO, BID, # 60 dose(s), # Refill (s): 11 Start Date: 04/19/19 Status: Orderedsenna 8.6 mg oral tablet mg = tab(s), PO, Every Bedtime Start Date: 04/19/19 Status: Orderedvenlafaxine 150 mg, PO Start Date: 04/19/19 Status: Ordered Results General Lab Most recent to oldest [Reference Range]: 1 White Blood Cell Count [3.5-11.0 x10(9)/L] 10.9 x10(9) /L (04/24/19 11:34 PM) Red Blood Cell Count [4.27-5.57 x10(12)/L] 4.41 x10(12 )/L (04/24/19 11:34 PM) Hemoglobin [13.4-17.0 g/dL] 13.2 g/dL *LOW* (04/24/19:34 PM) Hematocrit [39-50 %] 38 % *LOW* (04/24/19:34 PM) Mean Corpuscular Volume [80-100 fL] 87 fL (04/24/1934 PM) Mean Corpuscular HGB [28-34 pg] 30 pg (04/24/19:34 PM) Mean Corpuscular HGB Concentrn [33-36 g/dL] 34 g/dL (04/24/19:34 PM) RBC Distribution Width [12.0-16.0 %] 13.1 % (04/24/1934 PM) Platelet Count [150-400 x10(9)/L] 317 x10(9)/L (04/24/19:34 PM) Lymphocytes, Percent 9.6 % *NA* (04/24/19:34 PM) Monocytes, Percent 7.3 % *NA* (04/24/19:34 PM) Neutrophils, Percent 82.2 % *NA* (04/24/19:34 PM) Eosinophils, Percent 0.4 % *NA* (04/24/19:34 PM) Basophils, Percent 0.5 % *NA* (04/24/19:34 PM) Lymphocytes, Absolute Count [1.0-4.5 x10(9)/L] 1.1 x10 (9)/L (04/24/19:34 PM) Monocytes, Absolute Count [0.1-0.9 x10(9)/L] 0.8 x10(9 )/L (04/24/19:34 PM) Neutrophils, Absolute Count [2.0-8.5 x10(9)/L] 9.0 x10 (9)/L *HI* (04/24/19:34 PM) Eosinophils, Absolute Count [0.0-0.5 x10(9)/L] 0.0 x10 (9)/L (04/24/19:34 PM) Basophils, Absolute Count [0.0-0.2 x10(9)/L] 0.1 x10(9 )/L (04/24/19:34 PM) Sodium Level [136-146 mmol/L] 137 mmol/L (04/24/19:34 PM) Potassium Level [3.5-5.3 mmol/L] 3.4 mmol/L *LOW* (04/24/19:34 PM) Chloride Level [100-112 mmol/L] 95 mmol/L *LOW* (04/24/1934 PM) Carbon Dioxide Content (CO2) [22-31 mmol/L] 29 mmol/L (04/24/19:34 PM) Anion Gap, Blood [6-14 mmol/L] 13 mmol/L (04/24/19:34 PM) Creatinine, Serum [0.72-1.25 mg/dL] 1.77 mg/dL *HI* (04/24/19:34 PM) eGFR (NonAfrican-Greek) [60-300 mL/min/1.73m] 50 mL/min/1.73m *LOW* (04/24/19:34 PM) eGFR (-Greek) [60-300 mL/min/1.73m] 57 mL/ min/1.73m *LOW* (04/24/19:34 PM) Urea Nitrogen [9-25 mg/dL] 19 mg/dL (04/24/19:34 PM) Total Protein Plasma [6.1-8.0 g/dL] 7.7 g/dL (04/24/1934 PM) Albumin Level [3.5-5.0 g/dL] 3.9 g/dL (04/24/19:34 PM) Calcium Level [8.7-10.4 mg/dL] 9.8 mg/dL (04/24/19:34 PM) Alkaline Phosphatase [40-150 U/L] 126 U/L (04/24/1934 PM) ALT (SGPT) [<=55 U/L] 17 U/L (04/24/19:34 PM) AST (SGOT) [10-40 U/L] 20 U/L (10/8/19 11:34 PM) Bilirubin Total Level [0.2-1.2 mg/dL] 0.6 mg/dL (04/24/19 11:34 PM) Lipase Level [8-78 U/L] 21 U/L (04/24/19 11:34 PM) Glucose Random [75-139 mg/dL] 161 mg/dL *HI* (04/24/19 11:34 PM) Beta-Hydroxybutyrate [<=0.3 mmol/L] <0.4 mmol/L (04/24/19 11:34 PM) Glucose Fingerstick [75-139 mg/dL] 160 mg/dL 1 *HI* (04/24/19 11:01 PM) 1Result Comment: Performed At:[address] [facility] [facility], [place], [address]
--- OUTSIDE RECORDS SUMMARY | 2022-07-24 16:39 | External Medical Summary | Summary of Care ---
:1985 Author Organization [facility] ic Address [address] [place] [address]- Care Team Providers Name Role Phone Means Flynn PIERCE Primary Care Physician Encounter FNBR [id number] Date(s): 06/08/19 - 06/08/19 [facility] [address] [place] [address]- [place] Discharge Disposition: *Home (01) Attending Physician: Rosanne [...] Unknown Active NSAIDs Not to take per Brush Polisher Unknown Act dayan Medications captopril 12.5 mg [...]
--- OUTSIDE RECORDS SUMMARY | 2022-07-24 16:39 | External Medical Summary | Summary of Care ---
:1985 Author Organization [facility] ic Address [address] [place] [address]- Care Team Providers Name Role Phone Flynn Hammer MD Primary Care Physician Encounter FNBR [id number] Date(s): 04/19/19 - 04/19/19 [facility] [address] [place] [address]- [place] Discharge Disposition: *Home (01) Attending Physician: Flynn Hammer MD Vital Signs Most recent to oldest [Reference Range]: 1 Body Mass Index 22.49 kg/m2 (04/19/19 1:23 PM) Blood Pressure [90-138/60-88 mmHg] 118/86 mmHg (04/19/19 1:23 PM) Problem List Condition Effective Dates Status [...] Unknown Active NSAIDs Not to take per Loan Officer Assistant Unknown Act dayan Medications captopril 12.5 mg [...] Most recent to oldest [Reference Range]: 1 Sodium Level [136-146 mmol/L] 133 mmol/L *LOW* (04/19/19 3:04 PM) Potassium Level [3.5-5.3 mmol/L] 2.9 mmol/L *LOW* (04/19/19 3:04 PM) Chloride Level [100-112 mmol/L] 85 mmol/L *LOW* (04/19/19 3:04 PM) Carbon Dioxide Content (CO2) [22-31 mmol/L] 37 mmol/L *HI* (04/19/19 3:04 PM) Anion Gap, Blood [6-14 mmol/L] 11 mmol/L (04/19/19 3:04 PM) Creatinine, Serum [0.72-1.25 mg/dL] 2.96 mg/dL *HI* (04/19/19 3:04 PM) eGFR (NonAfrican-British) [60-300 mL/min/1.73m] 27 mL/min/1.73m *LOW* (04/19/19 3:04 PM) eGFR (-British) [60-300 mL/min/1.73m] 31 mL/ min/1.73m *LOW* (04/19/19 3:04 PM) Urea Nitrogen [9-25 mg/dL] 31 mg/dL *HI* (04/19/19 3:04 PM) Total Protein Plasma [6.1-8.0 g/dL] 7.1 g/dL (04/19/19 3:04 PM) Albumin Level [3.5-5.0 g/dL] 3.8 g/dL (04/19/19 3:04 PM) Calcium Level [8.7-10.4 mg/dL] 9.3 mg/dL (04/19/19 3:04 PM) Alkaline Phosphatase [40-150 U/L] 109 U/L (04/19/19 3:04 PM) ALT (SGPT) [<=55 U/L] 15 U/L (04/19/19 3:04 PM) AST (SGOT) [10-40 U/L] 21 U/L (04/19/19 3:04 PM) Bilirubin Total Level [0.2-1.2 mg/dL] 0.3 mg/dL (04/19/19 3:04 PM) Glucose Random [75-139 mg/dL] 174 mg/dL *HI* (04/19/19 3:04 PM) Hemoglobin A1c (HbA1c) [4.0-6.0 %] 10.0 % *HI* (04/19/19 3:04 PM) Estimated Average Glucose 240 *NA* (04/19/19 3:04 PM) Cholesterol Random [<=200 mg/dL] 191 mg/dL (04/19/19 3:04 PM) Triglyceride Random 143 mg/dL *NA* (04/19/19 3:04 PM) High Density Lipoprotein Random 51 mg/dL *NA* (04/19/19 3:04 PM) Cholesterol LDL Random Calc 111 mg/dL *NA* (04/19/19 3:04 PM) Non-HDL Random Calc 140 mg/dL *NA* (04/19/19 3:04 PM) Creatinine, Random Urine 309 mg/dL *NA* (04/19/19 3:15 PM) Microalbumin, Random Urine 5074.1 mg/L *NA* (04/19/19 3:15 PM) Microalbumin/Creatinine Ratio, Random [<=29 mg/gm] 164 2 mg/gm *HI* (04/19/19 3:15 PM)
--- OUTSIDE RECORDS SUMMARY | 2022-07-24 16:39 | External Medical Summary | Summary of Care ---
:1985 Author Organization [facility] ic Address [address] [place] [address]- Care Team Providers Name Role Phone Shanice PIERCE, Quinten Velazquez Primary Care Physician Encounter FNBR [id number] Date(s): 09/05/20 - 09/05/20 [facility] [address] [place], [place] [address] Attending Physician: Angela Wilson MD Problem List Condition Effective Dates Status Health Status Informant Acute worsening of stage 3 chronic Active kidney disease(Confirmed) CKD stage 3 due to type 1 [...] Unknown Active NSAIDs Not to take per Chef Saucier Unknown Act dayan Medications carvedilol 6.25 mg oral tablet 6.25 mg = 1 tab(s), PO, BID, # 60 tab(s), # Refill (s): 6 # Total Refill (s): 6 Start Date: 06/09/20 Status: OrderedCIALIS 5 mg oral tablet mg tab(s), PO, Daily Start Date: 04/19/19 Status: OrderedcloNIDine 0.2 mg/24 hr transdermal film, extended release 1 patch(es), TOPICAL, Q1 Week, # 13 patch(es), # Refill (s): 11 # Total Refill (s): 11 Start Date: 01/11/20 Stop Date: 12/26/22 Status: OrderedfluvoxaMINE 50 mg oral tablet 50 mg = 1 tab(s), PO, Every Bedtime, # 30 tab(s), # Refill (s): 3 # Total Refill (s): 3 Start Date: 05/30/19 Status: Orderedfurosemide 20 mg oral tablet 20 mg = 1 tab(s), PO, BID, PRN: edema, # 180 tab(s), # Refill (s): 3 # Total Refill (s): 3 Start Date: 06/09/20 Status: Orderedgabapentin 600 mg oral tablet 600 mg = 1 tab(s), PO, TID, # 90 tab(s) Start Date: 05/10/19 Status: OrderedKetamine 30mg odt Ketamine 30mg odt, See Instructions, 30 mg;PRN Start Date: 05/10/19 Status: OrderedLIPITOR 40 mg, PO, Daily, # 30 dose(s), # Refill (s): 11 Start Date: 04/19/19 Status: Orderedlisinopril 10 mg oral tablet 10 mg = 1 tab(s), PO, Daily, # 90 tab(s), # Refill (s): 11 # Total Refill (s): 11 Start Date: 06/09/20 Status: OrderedLORazepam 0.5 mg, PO, TID, PRN: for anxiety, # 30 dose(s), # Refill (s): 4 Start Date: 04/19/19 Status: Orderedmelatonin 10 mg oral capsule See Instructions, PRN: as needed for insomnia, 1 cap(s) PO Start Date: 04/19/19 Status: OrderedMulti Vitamin+ Start Date: 04/19/19 Status: Orderednortriptyline 10 mg oral capsule 10 mg = 1 cap(s), PO, Every Bedtime, # 90 cap(s), # Refill (s): 3 # Total Refill (s): 3 Start Date: 06/24/20 Stop Date: 06/19/21 Status: OrderedNovoLOG 100 unit(s)/mL injectable solution See [...] Start Date: 03/25/20 Stop Date: 03/20/21 Status: Orderedondansetron 2 mg/mL injectable solution 4 mg, IM, Q6 HR Start Date: 06/24/20 Status: OrderedPHENERGAN 12.5 mg rectal suppository 12.5 [...] PO Every Bedtime Start Date: 04/19/19 Status: Orderedtadalafil 10 mg oral tablet mg tab(s), PO, Daily Start Date: 06/24/20 Status: OrderedVITAMIN D3 2000 intl-unit(s) oral capsule [...]
--- OUTSIDE RECORDS SUMMARY | 2022-07-24 16:39 | External Medical Summary | Summary of Care ---
:1985 Author Organization [facility] ic Address [address] [place] [address]- Care Team Providers Name Role Phone Means Flynn PIERCE Primary Care Physician Encounter FNBR [id number] Date(s): 05/30/19 - 05/30/19 [facility] [address] [place] [address]- [place] Discharge Disposition: *Home () Attending Physician: Claritza Mojica MD Referring Physician: Ita Iraheta Vital Signs Most recent to oldest [Reference Range]: 1 Blood Pressure [90-138/60-88 mmHg] 102/68 mmHg (05/30/19 9:14 AM) Peripheral Pulse Rate [50-110 bpm] 68 bpm (05/30/19 9:14 AM) Problem List Condition Effective Dates Status [...] Unknown Active NSAIDs Not to take per Patient Service Rep Unknown Act dayan Medications captopril 12.5 mg [...]
--- OUTSIDE RECORDS SUMMARY | 2022-07-24 16:39 | External Medical Summary | Summary of Care ---
:1985 Author Organization [facility] ic Address [address] [place] [address]- Care Team Providers Name Role Phone Means Flynn PIERCE Primary Care Physician Encounter FNBR [id number] Date(s): 03/13/20 - 03/13/20 [facility] [address] [place] [address]- [place] Discharge Disposition: *Home (01) Attending Physician: Angela Wilson MD Vital Signs Most recent to oldest [Reference Range]: 1 Temperature (DegF) 98.6 degF (03/13/20 11:50 AM) Body Mass Index 29.93 kg/m2 (03/13/20 11:50 AM) Blood Pressure [90-138/60-88 mmHg] 95/74 mmHg (03/13/20 11:50 AM) Peripheral Pulse Rate [50-110 bpm] 91 bpm (03/13/20 11:50 AM) Problem List Condition Effective Dates Status [...] Unknown Active NSAIDs Not to take per Engraver Pantograph Unknown Act dayan Medications carvedilol 3.125 mg, [...] # 60 cap(s) Start Date: 03/13/20 Status: Ordered Results Most recent to oldest [Reference Range]: 1 Neutrophils, Absolute Count [2.0-8.5 x10(9)/L] 5.9 x10 (9)/L (03/13/20 11:40 AM) Lymphocytes, Absolute Count [1.0-4.5 x10(9)/L] 2.9 x10 (9)/L (03/13/20 11:40 AM) Monocytes, Absolute Count [0.1-0.9 x10(9)/L] 1.1 x10(9 )/L *HI* (03/13/20 11:40 AM) Eosinophils, Absolute Count [0.0-0.5 x10(9)/L] 0.1 x10 (9)/L (03/13/20 11:40 AM) Basophils, Absolute Count [0.0-0.2 x10(9)/L] 0.1 x10(9 )/L (03/13/20 11:40 AM) Parathyroid Hormone-Intact [11.0-77.0 pg/mL] 90.5 pg/m L *HI* (03/13/20 11:40 AM) Vitamin D 25-OH, Total [30.0-60.0 ng/mL] 23.9 ng/mL *LOW* (03/13/20 11:40 AM) eGFR (-Danish) [60-300 mL/min/1.73m] 20 mL/ min/1.73m *LOW* (03/13/20 11:40 AM) Transitional Epithelial Cells 1+ (03/13/20 11:51 AM) Renal Epithelial Cells 1+ *ABN* (03/13/20 11:51 AM) eGFR (NonAfrican-Danish) [60-300 mL/min/1.73m] 17 mL/min/1.73m *LOW* (03/13/20 11:40 AM) Epithelial Cells 1+ (03/13/20 11:51 AM) Albumin Level [3.5-5.0 g/dL] 4.4 g/dL (03/13/20 11:40 AM) Alkaline Phosphatase [40-150 U/L] 121 U/L (03/13/20 11:40 AM) Anion Gap, Blood [6-14 mmol/L] 13 mmol/L (03/13/20 11:40 AM) Basophils, Percent 0.9 % *NA* (03/13/20 11:40 AM) Bilirubin Total Level [0.2-1.2 mg/dL] 0.7 mg/dL (03/13/20 11:40 AM) Blood, Urine [negative] 1+ *ABN* (03/13/20 11:51 AM) Calcium Level [8.7-10.4 mg/dL] 9.3 mg/dL (03/13/20 11:40 AM) Carbon Dioxide Content (CO2) [22-31 mmol/L] 38 mmol/L *HI* (03/13/20 11:40 AM) Chloride Level [100-112 mmol/L] 83 mmol/L *LOW* (03/13/20 11:40 AM) Creatinine, Random Urine 229 mg/dL *NA* (03/13/20 11:51 AM) Creatinine, Serum [0.72-1.25 mg/dL] 4.30 mg/dL *HI* (03/13/20 11:40 AM) Eosinophils, Percent 0.6 % *NA* (03/13/20:40 AM) Glucose Random [75-139 mg/dL] 90 mg/dL (03/13/20 11:40 AM) Glucose, Qualitative Urine [negative] negative *NA* (03/13/20 11:51 AM) Granular Cast 1+ *ABN* (03/13/20 11:51 AM) Neutrophils, Percent 58.3 % *NA* (03/13/20 11:40 AM) Hematocrit [39-50 %] 41 % (03/13/20 11:40 AM) Hyaline Cast 2+ (03/13/20 11:51 AM) Ketones, Urine [negative] negative *NA* (03/13/20 11:51 AM) Lymphocytes, Percent 29.1 % *NA* (03/13/20 11:40 AM) Mean Corpuscular HGB [28-34 pg] 29 pg (03/13/20 11:40 AM) Mean Corpuscular HGB Concentrn [33-36 g/dL] 33 g/dL (03/13/20 11:40 AM) Mean Corpuscular Volume [80-100 fL] 88 fL (03/13/20 11:40 AM) Microalbumin, Random Urine >2000.0 mg/L *NA* (03/13/20 11:51 AM) Monocytes, Percent 11.1 % *NA* (03/13/20 11:40 AM) Mucus 1+ (03/13/20 11:51 AM) pH, Urine [5.0-8.0] 6.0 *NA* (03/13/20 11:51 AM) Platelet Count [150-400 x10(9)/L] 283 x10(9)/L (03/13/20 11:40 AM) Potassium Level [3.5-5.3 mmol/L] 3.0 mmol/L *LOW* (03/13/20 11:40 AM) Total Protein Plasma [6.1-8.0 g/dL] 8.0 g/dL (03/13/20 11:40 AM) Protein, Urine [negative] 3+ *ABN* (03/13/20 11:51 AM) RBC Distribution Width [12.0-16.0 %] 13.8 % (03/13/20 11:40 AM) Red Blood Cell Count [4.27-5.57 x10(12)/L] 4.69 x10(12 )/L (03/13/20 11:40 AM) Sodium Level [136-146 mmol/L] 134 mmol/L *LOW* (03/13/20 11:40 AM) Specific Pride, Urine [1.005-1.030] 1.016 (03/13/20 11:51 AM) Total Calcium [8.7-10.4 mg/dL] 9.3 mg/dL (03/13/20 11:40 AM) ALT (SGPT) [<=55 U/L] 16 U/L (03/13/20 11:40 AM) AST (SGOT) [10-40 U/L] 23 U/L (03/13/20 11:40 AM) U Sediment See Microscopy (03/13/20 11:51 AM) Urea Nitrogen [9-25 mg/dL] 48 mg/dL *HI* (03/13/20 11:40 AM) Urine Leukocyte Esterase [negative] negative *NA* (03/13/20 11:51 AM) Urine Nitrite [negative] negative *NA* (03/13/20 11:51 AM) Urine Red Blood Cells --- 1 (03/13/20 11:51 AM) White Blood Cell Count [3.5-11.0 x10(9)/L] 10.1 x10(9) /L (03/13/20 11:40 AM) Microalbumin/Creatinine Ratio, Random [<=29] See Comme nt 2 *NA* (03/13/20 11:51 AM) Hemoglobin [13.4-17.0 g/dL] 13.7 g/dL (03/13/20 11:40 AM) 1Result Comment: [email or web address] Comment: Urine albumin is above the detection limit of the assay-unable to calculate Microalbumin/Creatinine Ratio. Immunizations Given and Recorded Vaccine Date Status Refusal Reason influenza virus vaccine, inactivated 03/18/19 Recorded
--- OUTSIDE RECORDS SUMMARY | 2022-07-24 16:39 | External Medical Summary | Summary of Care ---
:1985 Author Organization [facility] ic Address [address] [place] [address]- Care Team Providers Name Role Phone Means Flynn PIERCE Primary Care Physician Encounter FNBR [id number] Date(s): 10/12/19 - 10/12/19 [facility] [address] [place] [address]- [place] Discharge Disposition: *Home () Attending Physician: Elvia Tobar MD Referring Physician: Claritza Mojica MD Vital Signs Most recent to oldest [Reference Range]: 1 Body Mass Index 28.8 kg/m2 (10/12/19 12:22 PM) Blood Pressure [90-138/60-88 mmHg] 141/82 mmHg *HI* (10/12/19 12:22 PM) Peripheral Pulse Rate [50-110 bpm] 67 bpm (10/12/19 12:22 PM) Problem List Condition Effective Dates Status [...] Unknown Active NSAIDs Not to take per Bench Assembly Inspector Unknown Act dayan Medications captopril 12.5 mg oral tablet 6.25 mg = 0.5 tab(s), PO, BID, # 30 tab(s), # Refill (s): 0 # Total Refill (s): 0, may take 1 prn for htn Start Date: 05/15/19 Status: Orderedcarvedilol 3.125 mg, BID Start Date: 08/30/19 Status: [...]
--- OUTSIDE RECORDS SUMMARY | 2022-07-24 16:39 | External Medical Summary | Summary of Care ---
:1985 Author Organization [facility] ic Address [address] [place] [address]- Care Team Providers Name Role Phone Means Flynn PIERCE Primary Care Physician Encounter FNBR [id number] Date(s): 05/04/19 - 05/04/19 [facility] [address] [place] [address]- [place] States Discharge Disposition: *Home (01) Attending Physician: Yousuf Bynum MD Referring Physician: Self, Ref Vital Signs Most recent to oldest [Reference Range]: 1 Body Mass Index 25.54 kg/m2 (05/04/19 1:27 PM) Blood Pressure [90-138/60-88 mmHg] 116/70 mmHg (05/04/19 1:27 PM) Peripheral Pulse Rate [50-110 bpm] 74 bpm (05/04/19 1:27 PM) Problem List Condition Effective Dates Status [...] Unknown Active NSAIDs Not to take per Physicist Nuclear Unknown Act dayan Medications captopril 12.5 mg [...]
--- OUTSIDE RECORDS SUMMARY | 2022-07-24 16:39 | External Medical Summary | Summary of Care ---
:[address] [facility] ic Address [address] [place] [address]- Care Team Providers Name Role Phone Means Flynn PIERCE Primary Care Physician Encounter FNBR [id number] Date(s): 02/15/20 - 02/15/20 [facility] [address] [place] [address]- [place] Discharge Disposition: *Home (01) Attending Physician: Elvia Tobar MD Problem List Condition Effective Dates Status [...] Unknown Active NSAIDs Not to take per Stave Cutting Supervisor Unknown Act dayan Medications carvedilol 3.125 [...]
--- OUTSIDE RECORDS SUMMARY | 2022-07-24 16:39 | External Medical Summary | Summary of Care ---
:1985 Author Organization [facility] ic Address [address] [place] [address]- Care Team Providers Name Role Phone Shanice PIERCE, Quinten Velazquez Primary Care Physician Encounter FNBR [id number] Date(s): 09/24/20 - 09/17/20 [facility] [address] [place], [place] [address] [place] [address] Attending Physician: Rosanne Burnham MD Referring Physician: [...] Unknown Active NSAIDs Not to take per Collection Specialist Unknown Act dayan Medications carvedilol 6.25 mg [...]
--- OUTSIDE RECORDS SUMMARY | 2022-07-24 16:39 | External Medical Summary | Summary of Care ---
:1985 Author Organization [facility] ic Address [address] [place] [address]- Care Team Providers Name Role Phone Means Flynn PIERCE Primary Care Physician Encounter FNBR [id number] Date(s): 01/14/20 - 01/14/20 [facility] [address] [place] [address]- [place] Discharge Disposition: *Home (01) Attending Physician: Elvia Tobar MD Vital Signs Most recent to oldest [Reference Range]: 1 Body Mass Index 30.04 kg/m2 (01/14/20 1:54 PM) Blood Pressure [90-138/60-88 mmHg] 128/80 mmHg (01/14/20 1:54 PM) Peripheral Pulse Rate [50-110 bpm] 80 bpm (01/14/20 1:54 PM) Problem List Condition Effective Dates Status [...] Unknown Active NSAIDs Not to take per Straight Knife Cutter Machine Unknown Act dayan Medications carvedilol 3.125 mg, [...]
--- OUTSIDE RECORDS SUMMARY | 2022-07-24 16:39 | External Medical Summary | Summary of Care ---
:1985 Author Organization [facility] Address [address] [place] [address]- Care Team Providers Name Role Phone Means Flynn PIERCE Primary Care Physician Encounter FNBR [id number] Date(s): 06/12/19 - 06/12/19 [facility] [address] [place] [address]- [place] Encounter Diagnosis Nausea and vomiting (Discharge Diagnosis) - 06/12/19 Discharge Disposition: *Home () Attending Physician: Pietro Young MD Vital Signs Most recent to oldest [Reference Range]: 1 Blood Pressure [90-138/60-88 mmHg] 178/94 mmHg *HI* (06/12/19 7:34 PM) Peripheral Pulse Rate [50-110 bpm] 91 bpm (06/12/19 5:29 PM) Problem List Condition Effective Dates Status [...] Unknown Active NSAIDs Not to take per Transportation Project Manager Unknown Act dayan Medications captopril 12.5 mg [...] Range]: 1 Neutrophils, Absolute Count [2.0-8.5 x10(9)/L] 9.8 x10 (9)/L *HI* (06/12/19 5:35 PM) Lymphocytes, Absolute Count [1.0-4.5 x10(9)/L] 1.2 x10 (9)/L (06/12/19 5:35 PM) Monocytes, Absolute Count [0.1-0.9 x10(9)/L] 0.7 x10(9 )/L (06/12/19 5:35 PM) Eosinophils, Absolute Count [0.0-0.5 x10(9)/L] 0.1 x10 (9)/L (06/12/19 5:35 PM) Basophils, Absolute Count [0.0-0.2 x10(9)/L] 0.1 x10(9 )/L (06/12/19 5:35 PM) eGFR (-North Korean) [60-300 mL/min/1.73m] 42 mL/ min/1.73m *LOW* (06/12/19 5:35 PM) eGFR (NonAfrican-North Korean) [60-300 mL/min/1.73m] 36 mL/min/1.73m *LOW* (06/12/19 5:35 PM) Albumin Level [3.5-5.0 g/dL] 4.3 g/dL (06/12/19 5:35 PM) Alkaline Phosphatase [40-150 U/L] 151 U/L *HI* (06/12/19 5:35 PM) Anion Gap, Blood [6-14 mmol/L] 13 mmol/L (06/12/19 5:35 PM) Basophils, Percent 0.5 % *NA* (06/12/19 5:35 PM) Bilirubin Total Level [0.2-1.2 mg/dL] 0.5 mg/dL (06/12/19 5:35 PM) Calcium Level [8.7-10.4 mg/dL] 10.0 mg/dL (06/12/19 5:35 PM) Carbon Dioxide Content (CO2) [22-31 mmol/L] 33 mmol/L *HI* (06/12/19 5:35 PM) Chloride Level [100-112 mmol/L] 89 mmol/L *LOW* (06/12/19 5:35 PM) Creatinine, Serum [0.72-1.25 mg/dL] 2.29 mg/dL *HI* (06/12/19 5:35 PM) Eosinophils, Percent 0.4 % *NA* (06/12/19 5:35 PM) Glucose Random [75-139 mg/dL] 242 mg/dL *HI* (06/12/19 5:35 PM) Neutrophils, Percent 83.4 % *NA* (06/12/19 5:35 PM) Hematocrit [39-50 %] 36 % *LOW* (06/12/19 5:35 PM) Lipase Level [8-78 U/L] <21 U/L (06/12/19 5:35 PM) Lymphocytes, Percent 9.9 % *NA* (06/12/19 5:35 PM) Mean Corpuscular HGB [28-34 pg] 30 pg (06/12/19 5:35 PM) Mean Corpuscular HGB Concentrn [33-36 g/dL] 34 g/dL (06/12/19 5:35 PM) Mean Corpuscular Volume [80-100 fL] 87 fL (06/12/19 5:35 PM) Monocytes, Percent 5.8 % *NA* (06/12/19 5:35 PM) Platelet Count [150-400 x10(9)/L] 418 x10(9)/L *HI* (06/12/19 5:35 PM) Potassium Level [3.5-5.3 mmol/L] 3.8 mmol/L (06/12/19 5:35 PM) Total Protein Plasma [6.1-8.0 g/dL] 8.4 g/dL *HI* (06/12/19 5:35 PM) RBC Distribution Width [12.0-16.0 %] 13.0 % (06/12/19 5:35 PM) Red Blood Cell Count [4.27-5.57 x10(12)/L] 4.11 x10(12 )/L *LOW* (06/12/19 5:35 PM) Sodium Level [136-146 mmol/L] 135 mmol/L *LOW* (06/12/19 5:35 PM) ALT (SGPT) [<=55 U/L] 50 U/L (06/12/19 5:35 PM) AST (SGOT) [10-40 U/L] 37 U/L (06/12/19 5:35 PM) Troponin I [<=0.032 ng/mL] <0.030 ng/mL (06/12/19 5:35 PM) Urea Nitrogen [9-25 mg/dL] 25 mg/dL (06/12/19 5:35 PM) White Blood Cell Count [3.5-11.0 x10(9)/L] 11.8 x10(9) /L *HI* (06/12/19 5:35 PM) Hemoglobin [13.4-17.0 g/dL] 12.2 g/dL *LOW* (06/12/19 5:35 PM) Glucose Fingerstick [75-139 mg/dL] 220 mg/dL 1 *HI* (06/12/19 5:42 PM) 1Result Comment: Performed At:[address] [place], [address] Immunizations Given and Recorded Vaccine Date Status Refusal Reason influenza virus vaccine, inactivated 03/18/19 Recorded
--- OUTSIDE RECORDS SUMMARY | 2022-07-24 16:39 | External Medical Summary | Summary of Care ---
:1985 Author Organization [facility] ic Address [address] [place] [address]- Care Team Providers Name Role Phone Shanice PIERCE, Quinten Velazquez Primary Care Physician Encounter FNBR [id number] Date(s): 03/10/21 - 03/10/21 [facility] [address] Discharge Disposition: *Home (01) Attending Physician: Claritza Mojica MD Problem List Condition [...] Unknown Active NSAIDs Not to take per Site Interpreter Unknown Act dayan Medications carvedilol 6.25 mg oral tablet 6.25 mg = 1 tab(s), PO, BID, # 60 tab(s), # Refill (s): 6 # Total Refill (s): 6 Start Date: 06/09/20 Status: SuspendedCIALIS 5 mg oral tablet mg tab(s), PO, Daily Start Date: 04/19/19 Status: SuspendedcloNIDine 0.2 mg/24 hr transdermal film, extended release 1 patch(es), TOPICAL, Q1 Week, # 13 patch(es), # Refill (s): 11 # Total Refill (s): 11 Start Date: 01/11/20 Stop Date: 12/26/22 Status: SuspendedfluvoxaMINE 50 mg oral tablet 50 mg = 1 tab(s), PO, Every Bedtime, # 30 tab(s), # Refill (s): 3 # Total Refill (s): 3 Start Date: 05/30/19 Status: Suspendedfurosemide 20 mg oral tablet 20 mg = 1 tab(s), PO, BID, PRN: edema, # 180 tab(s), # Refill (s): 3 # Total Refill (s): 3 Start Date: 06/09/20 Status: Suspendedgabapentin 600 mg oral tablet 600 mg = 1 tab(s), PO, TID, # 90 tab(s) Start Date: 05/10/19 Status: SuspendedKetamine 30mg odt Ketamine 30mg odt, See Instructions, 30 mg;PRN Start Date: 05/10/19 Status: SuspendedLIPITOR 40 mg, PO, Daily, # 30 dose(s), # Refill (s): 11 Start Date: 04/19/19 Status: Suspendedlisinopril 10 mg oral tablet 10 mg = 1 tab(s), PO, Daily, # 90 tab(s), # Refill (s): 11 # Total Refill (s): 11 Start Date: 06/09/20 Status: SuspendedLORazepam 0.5 mg, PO, TID, PRN: for anxiety, # 30 dose(s), # Refill (s): 4 Start Date: 04/19/19 Status: Suspendedmelatonin 10 mg oral capsule See Instructions, PRN: as needed for insomnia, 1 cap(s) PO Start Date: 04/19/19 Status: Suspendednortriptyline 10 mg oral capsule 10 mg = 1 cap(s), PO, Every Bedtime, # 90 cap(s), # Refill (s): 3 # Total Refill (s): 3 Start Date: 06/24/20 Stop Date: 06/19/21 Status: SuspendedNovoLOG 100 unit(s)/mL injectable solution See Instructions, # 20 mL, # Refill (s): 0 # Total Refill (s): 0, via insulin pump - patient uses between 50-55u per day. Start Date: 09/29/19 Status: Suspendedomeprazole 20 mg oral delayed release capsule 20 mg = 1 cap(s), PO, BID Before Breakfast and Dinner, # 180 cap(s), # Refill (s): 3 # Total Refill (s): 3 Start Date: 03/25/20 Stop Date: 03/20/21 Status: Suspendedsenna 8.6 mg oral tablet See Instructions, PRN as needed for constipation, tab(s) mg PO Every Bedtime Start Date: 04/19/19 Status: Suspendedtadalafil 10 mg oral tablet mg tab(s), PO, Daily Start Date: 06/24/20 Status: SuspendedZOFRAN 4 mg oral tablet 4 mg = 1 tab(s), PO, Q8 Hours, PRN: for Nausea or Vomiting Start Date: 03/25/20 Status: Suspended Immunizations Given and Recorded Vaccine Date Status Refusal Reason influenza virus vaccine, inactivated 03/18/19 Recorded
--- OUTSIDE RECORDS SUMMARY | 2022-07-24 16:39 | External Medical Summary | Summary of Care ---
:1985 Author Organization [facility] ic Address [address] [place] [address]- Care Team Providers Name Role Phone Means Flynn PIERCE Primary Care Physician Encounter FNBR [id number] Date(s): 08/01/19 - 08/01/19 [facility] [address] [place] [address]- [place] Discharge Disposition: *Home (01) Attending Physician: Claritza Mojica MD Vital Signs Most recent to oldest [Reference Range]: 1 Body Mass Index 27.68 kg/m2 (08/01/19 9:36 AM) Blood Pressure [90-138/60-88 mmHg] 152/107 mmHg *HI* (08/01/19 9:36 AM) Peripheral Pulse Rate [50-110 bpm] 82 bpm (08/01/19 9:36 AM) Problem List Condition Effective Dates Status [...] Unknown Active NSAIDs Not to take per Clinical Applications Specialist Unknown Act dayan Medications captopril 12.5 mg [...]
--- OUTSIDE RECORDS SUMMARY | 2022-07-24 16:39 | External Medical Summary | Summary of Care ---
:1985 Author Organization [facility] ic Address [address] [place] [address]- Care Team Providers Name Role Phone Means Flynn PIERCE Primary Care Physician Encounter FNBR [id number] Date(s): 05/29/19 - 05/29/19 [facility] [address] [place] [address]- [place] Attending Physician: Radiology, Diagnostic Referring Physician: Claritza [...] Unknown Active NSAIDs Not to take per Felt Puller Unknown Act dayan Medications captopril 12.5 mg [...]
--- OUTSIDE RECORDS SUMMARY | 2022-07-24 16:39 | External Medical Summary | Summary of Care ---
:1985 Author Organization [facility] Address [address] [place] [address]- Care Team Providers Name Role Phone Means Flynn PIERCE Primary Care Physician Encounter FNBR [id number] Date(s): 05/29/19 - 05/29/19 [facility] [address] [place] [address]- [place] Attending Physician: Radiology, Diagnostic Referring [...] Active NSAIDs Not to take per Clinical Science Consultant Unknown Act dayan Medications captopril 12.5 mg [...]
--- OUTSIDE RECORDS SUMMARY | 2022-07-24 16:39 | External Medical Summary | Summary of Care ---
:1985 Author Organization [facility] Address [address] [place] [address]- Care Team Providers Name Role Phone Means Flynn PIERCE Primary Care Physician Encounter FNBR [id number] Date(s): 06/29/19 - 06/29/19 [facility] [address] [facility] [place] [address]- [place] Encounter Diagnosis Nausea and vomiting (Discharge Diagnosis) - 06/29/19 Discharge Disposition: *Home () Attending Physician: Naomi Llamas DO Vital Signs Most recent to oldest [Reference Range]: 1 Blood Pressure [90-138/60-88 mmHg] 124/75 mmHg (06/29/19 2:00 PM) Peripheral Pulse Rate [50-110 bpm] 99 bpm (06/29/19 12:36 PM) Problem List Condition Effective Dates Status [...] Unknown Active NSAIDs Not to take per Pump House Operator Unknown Act dayan Medications captopril 12.5 mg [...] Range]: 1 Neutrophils, Absolute Count [2.0-8.5 x10(9)/L] 9.5 x10 (9)/L *HI* (06/29/19 11:50 AM) Lymphocytes, Absolute Count [1.0-4.5 x10(9)/L] 0.8 x10 (9)/L *LOW* (06/29/19 11:50 AM) Monocytes, Absolute Count [0.1-0.9 x10(9)/L] 0.4 x10(9 )/L (06/29/19 11:50 AM) Eosinophils, Absolute Count [0.0-0.5 x10(9)/L] 0.0 x10 (9)/L (06/29/19 11:50 AM) Basophils, Absolute Count [0.0-0.2 x10(9)/L] 0.0 x10(9 )/L (06/29/19 11:50 AM) Point of Care Creatinine [0.7-1.3 mg/dL] 2.2 mg/dL 1 *HI* (06/29/19 2:02 PM) eGFR (-Bahamian) [60-300 mL/min/1.73m] 34 mL/ min/1.73m *LOW* (06/29/19 11:50 AM) eGFR (NonAfrican-Bahamian) [60-300 mL/min/1.73m] 29 mL/min/1.73m *LOW* (06/29/19 11:50 AM) Albumin Level [3.5-5.0 g/dL] 4.7 g/dL (06/29/19 11:50 AM) Alkaline Phosphatase [40-150 U/L] 143 U/L (06/29/19 11:50 AM) Anion Gap, Blood [6-14 mmol/L] 17 mmol/L *HI* (06/29/19 11:50 AM) Basophils, Percent 0.3 % *NA* (06/29/19 11:50 AM) Bilirubin Total Level [0.2-1.2 mg/dL] 0.4 mg/dL (06/29/19 11:50 AM) Calcium Level [8.7-10.4 mg/dL] 10.6 mg/dL *HI* (06/29/19 11:50 AM) Carbon Dioxide Content (CO2) [22-31 mmol/L] 34 mmol/L *HI* (06/29/19 11:50 AM) Chloride Level [100-112 mmol/L] 91 mmol/L *LOW* (06/29/19 11:50 AM) Creatinine, Serum [0.72-1.25 mg/dL] 2.73 mg/dL *HI* (06/29/19 11:50 AM) Eosinophils, Percent 0.0 % *NA* (06/29/19 11:50 AM) Glucose Random [75-139 mg/dL] 283 mg/dL *HI* (06/29/19 11:50 AM) Neutrophils, Percent 88.4 % *NA* (06/29/19 11:50 AM) Hematocrit [39-50 %] 38 % *LOW* (06/29/19 11:50 AM) Lymphocytes, Percent 7.5 % *NA* (06/29/19 11:50 AM) Mean Corpuscular HGB [28-34 pg] 30 pg (06/29/19 11:50 AM) Mean Corpuscular HGB Concentrn [33-36 g/dL] 34 g/dL (06/29/19 11:50 AM) Mean Corpuscular Volume [80-100 fL] 86 fL (06/29/19 11:50 AM) Monocytes, Percent 3.8 % *NA* (06/29/19 11:50 AM) Platelet Count [150-400 x10(9)/L] 305 x10(9)/L (06/29/19 11:50 AM) Potassium Level [3.5-5.3 mmol/L] 3.9 mmol/L (06/29/19 11:50 AM) Total Protein Plasma [6.1-8.0 g/dL] 8.8 g/dL *HI* (06/29/19 11:50 AM) RBC Distribution Width [12.0-16.0 %] 12.8 % (06/29/19 11:50 AM) Red Blood Cell Count [4.27-5.57 x10(12)/L] 4.36 x10(12 )/L (06/29/19 11:50 AM) Sodium Level [136-146 mmol/L] 142 mmol/L (06/29/19 11:50 AM) ALT (SGPT) [<=55 U/L] 28 U/L (06/29/19 11:50 AM) AST (SGOT) [10-40 U/L] 27 U/L (06/29/19 11:50 AM) Urea Nitrogen [9-25 mg/dL] 30 mg/dL *HI* (06/29/19 11:50 AM) White Blood Cell Count [3.5-11.0 x10(9)/L] 10.7 x10(9) /L (06/29/19 11:50 AM) Hemoglobin [13.4-17.0 g/dL] 12.9 g/dL *LOW* (06/29/19 11:50 AM) Glucose Fingerstick [75-139 mg/dL] 256 mg/dL 2 *HI* (06/29/19 12:08 PM) 1Result Comment: Performed At:[address] [place], [place], [id number] Comment: Performed At:[address] [place], [address] Immunizations Given and Recorded Vaccine Date Status Refusal Reason influenza virus vaccine, inactivated 03/18/19 Recorded
--- OUTSIDE RECORDS SUMMARY | 2022-07-24 16:39 | External Medical Summary | Summary of Care ---
:1985 Author Organization [facility] ic Address [address] [place] [address]- Care Team Providers Name Role Phone Means Flynn PIERCE Primary Care Physician Encounter FNBR [id number] Date(s): 06/21/19 - 06/21/19 [facility] [address] [place] [id number] Discharge Disposition: *Home () Attending Physician: Bhaskar Benavides MD Referring Physician: Claritza Mojica MD Problem List [...] Unknown Active NSAIDs Not to take per Fibre Composite Technician Unknown Act dayan Medications captopril 12.5 mg [...] Most recent to oldest [Reference Range]: 1 Glucose Fingerstick [75-139 mg/dL] 138 mg/dL 1 (06/21/19 10:33 AM) 1Result Comment: Performed At:[address] [facility] [place], [address] Immunizations Given and Recorded Vaccine Date Status Refusal Reason influenza virus vaccine, inactivated 03/18/19 Recorded
--- OUTSIDE RECORDS SUMMARY | 2022-07-24 16:39 | External Medical Summary | Summary of Care ---
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
--- OUTSIDE RECORDS SUMMARY | 2022-07-24 16:39 | External Medical Summary | Summary of Care ---
:1985 Author Organization [facility] ic Address [address] [place] [address]- Care Team Providers Name Role Phone Shanice PIERCE, Quinten Velazquez Primary Care Physician Encounter FNBR [id number] Date(s): 06/02/21 - 06/02/21 [facility] [address] [place], [place] [address] Discharge Disposition: *Home (01) Attending Physician: Claritza Mojica MD Vital Signs Most recent to oldest [Reference Range]: 1 Body Mass Index 28.37 kg/m2 (06/02/21 1:53 PM) Blood Pressure [90-138/60-88 mmHg] 164/92 mmHg *HI* (06/02/21 1:53 PM) Peripheral Pulse Rate [50-110 bpm] 99 bpm (06/02/21 1:53 PM) Problem List Condition Effective Dates Status [...] Unknown Active NSAIDs Not to take per Pecan Gatherer Unknown Act dayan Medications carvedilol 6.25 mg [...] 1 cap(s) PO Start Date: 04/19/19 Status: Orderednortriptyline 10 mg [...] Start Date: 03/25/20 Stop Date: 03/20/21 Status: Orderedsenna 8.6 mg oral tablet See Instructions, PRN as needed for constipation, tab(s) mg PO Every Bedtime Start Date: 04/19/19 Status: Orderedtadalafil 10 mg oral tablet mg tab(s), PO, Daily Start Date: 06/24/20 Status: OrderedZOFRAN 4 mg oral tablet 4 mg = 1 tab(s), PO, Q8 Hours, PRN: for Nausea or Vomiting Start Date: 03/25/20 Status: Ordered Immunizations Given and Recorded Vaccine Date Status Refusal Reason influenza virus vaccine, inactivated 03/18/19 Recorded
--- OUTSIDE RECORDS SUMMARY | 2022-07-24 16:39 | External Medical Summary | Summary of Care ---
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
--- OUTSIDE RECORDS SUMMARY | 2022-07-24 16:39 | External Medical Summary | Summary of Care ---
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
--- OUTSIDE RECORDS SUMMARY | 2022-07-24 16:39 | External Medical Summary | Summary of Care ---
:1985 Author Organization [facility] ic Address [address] [place] [address]- Care Team Providers Name Role Phone Means Flynn PIERCE Primary Care Physician Encounter FNBR [id number] Date(s): 06/08/19 - 06/08/19 [facility] [address] [place] [address]- [place] Discharge Disposition: *Home () Attending Physician: Doug Rao MD Referring Physician: Claritza Mojica MD Problem [...] Unknown Active NSAIDs Not to take per Petrography Teacher Unknown Act dayan Medications captopril 12.5 mg [...]
--- OUTSIDE RECORDS SUMMARY | 2022-07-24 16:40 | External Medical Summary | Summary of Care ---
:1985 Author Organization [facility] ic Address [address] [address]- Care Team Providers Name Role Phone Means Flynn PIERCE Primary Care Physician Encounter FNBR [id number] Date(s): 07/10/19 - 07/10/19 [facility] [address] [place] [address]- [place] Discharge Disposition: *Home () Attending Physician: Rosanne [...] Unknown Active NSAIDs Not to take per Account Review Specialist Unknown Act dayan Medications captopril 12.5 [...]
--- OUTSIDE RECORDS SUMMARY | 2022-07-24 16:40 | External Medical Summary | Summary of Care ---
:1985 Author Organization [facility] ic Address [address] [place] [address]- Care Team Providers Name Role Phone Means Flynn PIERCE Primary Care Physician Encounter FNBR [id number] Date(s): 06/21/19 - 06/21/19 [facility] [address] [place] [address]- [place] Discharge Disposition: *Home (01) Attending Physician: Angela Wilson MD Vital Signs Most recent to oldest [Reference Range]: 1 Body Mass Index 26.92 kg/m2 (06/21/19 3:27 PM) Blood Pressure [90-138/60-88 mmHg] 200/102 mmHg *>HHI* (06/21/19 3:27 PM) Peripheral Pulse Rate [50-110 bpm] 86 bpm (06/21/19 3:27 PM) Problem List Condition Effective Dates Status [...] Unknown Active NSAIDs Not to take per Food Service Counter Clerk Unknown Act dayan Medications captopril 12.5 mg [...]
--- OUTSIDE RECORDS SUMMARY | 2022-07-24 16:40 | External Medical Summary | Summary of Care ---
:1985 Author Organization [facility] ic Address [address] [place] [address]- Care Team Providers Name Role Phone Means Flynn PIERCE Primary Care Physician Encounter FNBR [id number] Date(s): 06/21/19 - 06/21/19 [facility] [address] [place] [address]- [place] Discharge Disposition: *Home (01) Attending Physician: [...] Unknown Active NSAIDs Not to take per Filler Feeder Unknown Act dyaan Medications captopril 12.5 mg oral tablet 6.25 [...]
--- OUTSIDE RECORDS SUMMARY | 2022-07-24 16:40 | External Medical Summary ---
:1985 Author Care Team Providers Name Role Phone Dental Only Primary Care Provider Unavailable Allergies Code Code System Name Reaction Severity Status Onset NKDA Medications Name Status Start Date Stop Date acetaminophen 300 mg-codeine 30 mg tablet Active Not available amoxicillin 500 mg capsule Completed 11/10 amoxicillin 500 mg tablet Active Not av ailable Take 1 tablet 3 times a day by oral route. BD Insulin Syringe Ultra-Fine 1/2 mL 31 gauge x Active Not available " erythromycin 250 mg tablet Active Not a vailable fluoxetine 20 mg capsule Completed 019 gabapentin Completed 11/10/2018 gabapentin 300 mg capsule Active Not av ailable Glucagon Emergency Kit 1 mg solution for Active Not available injection Humalog U-100 Insulin 100 unit/mL subcutaneous Active Not available solution hydrocodone 5 mg-acetaminophen 325 mg tablet Completed 06/29/2016 Take 1 tablet every 4-6 hours by oral route for 3 days. hydrocodone 7.5 mg-acetaminophen 325 mg tablet Completed 06/29/2016 ibuprofen 600 mg tablet Active Not avai lable Take 1 tablet every 8 hours by oral route. Iodosorb 0.9 % topical gel Completed 11/10 Lantus Solostar U-100 Insulin 100 unit/mL (3 mL) subcutaneou s pen Active 08/21/2010 Not available INJECT 20 UNIT BY SUBCUTANEOUS ROUTE PER INSULIN PROTOCOL; DISPENSE :2; REFILLS :5 Levemir U-100 Insulin 100 unit/mL subcutaneous Active Not available solution lisinopril 10 mg tablet Active Not avai lable lisinopril 2.5 mg tablet Completed 019 lorazepam 0.5 mg tablet Active Not avai lable methadone 10 mg tablet Completed 09/04/2010 9 TAKE 2 TABLET (20MG) BY ORAL ROUTE EVERY 8 HOURS; DISPENSE :; R EFILLS :0 metoclopramide 10 mg tablet Completed 10/17 metoclopramide 5 mg tablet Completed 11/10 Novolog U-100 Insulin aspart 100 unit/mL Active Not available subcutaneous solution nystatin 100,000 unit/mL oral suspension Active Not available omeprazole 20 mg capsule,delayed release Completed 11/10/2018 ondansetron 4 mg disintegrating tablet Active Not available oseltamivir 75 mg capsule Active Not av ailable PreviDent 5000 Enamel Protect 1.1 %-5 % dental paste Active Not available Apply a pea-sized amount of the paste t o a toothbrush and brush thoroughly for two minutes, preferably at bedtime. Do not eat, drink, or rinse for 30 minutes after use. sucralfate 1 gram tablet Active Not suellen ilable sumatriptan 50 mg tablet Active Not suellne ilable testosterone cypionate 200 mg/mL intramuscular Active Not available oil tramadol 50 mg tablet Completed 11/10/2018 True Metrix Glucose Test Strip Active N ot available venlafaxine ER 150 mg capsule,extended release Active Not available 24 hr Problems Name Status Onset Date Source Periodontitis Active Encounter Loss of Teeth Due to Extraction Active Encounter Procedures None recorded. Results Lab Results Date Name Specimen Result Interpretation Description Value Range Status Address 08/21/2010 Tshif Normal Tshif 1.07 0.27-5.01 Final Naye [place] uIU/mL uIU/mL Historical Backfill: [place] 08/21/2010 CBC/adiff/ Normal Wbc 5.7 K/mcL 4.5-11.0 Tawnya Daley plt K/mcL Historical Backfill: [place] Normal Rbc 4.71 4.50-5.90 Final Thuy M/mcL M/mcL Historical Backfill: [place] Normal Hgb 15.2 g/dL 13.5-16.5 Final Nayek ay g/dL Historical Backfill: [place] Normal Hct 43.7 % 41.0-55.0 % Final Miquel y Historical Backfill: [place] Normal Mcv 92.8 fL 80.0-100.0 Final Miquel garcia fL Historical Backfill: [place] Normal Mch 32.3 pg 26.0-34.0 pg Final Naye [place] Historical Backfill: [place] Normal Mchc 34.8 g/dL 31.0-36.0 Final Ellk ay g/dL Historical Backfill: [place] Normal Rdw 11.9 % 11.5-14.5 % Final Miquel y Historical Backfill: [place] Normal Plt [address] 207 K/mcL 140-440 Final Ellka y K/mcL Historical Backfill: [place] Normal Mpv 9.5 fL 7.4-10.4 fL Final Ellka y Historical Backfill: [place] Normal Gran % 52.4 % 38.0-78.0 % Final Ellk ay Historical Backfill: [place] Normal Lymph % 32.8 % 15.5-49.0 % Final Ell issac Historical Backfill: [place] High Mccormick % 9.2 % 1.0-9.0 % Final Ellkay Historical Backfill: [place] Normal Eos % 4.6 % 0.0-7.0 % Final Ellkay Historical Backfill: [place] Normal Baso % 1.0 % 0.0-2.0 % Final Ellkay Historical Backfill: [place] Normal Gran # 3.0 K/mcL 1.8-8.0 Final Ellka y K/mcL Historical Backfill: [place] Normal Lymph # 1.9 K/mcL 1.5-4.8 Final Ellk ay K/mcL Historical Backfill: [place] Normal Mccormick # 0.5 K/mcL 0.1-0.9 Final Ellka y K/mcL Historical Backfill: [place] Normal Eos # 0.3 K/mcL 0.0-0.7 Final Ellkay K/mcL Historical Backfill: [place] Normal Baso # 0.1 K/mcL 0.0-0.3 Final Ellka y K/mcL Historical Backfill: [place] 08/21/2010 CMP, Serum Low Glu 52 mg/dL 70-105 mg/dL F inal Ellkay or Plasma Histori regi Backfill: [place] Normal BUN,ser 7 mg/dL 6-20 mg/dL Final Ell issac um Historical Backfill: [place] Low Creat,s 0.4 mg/dL 0.7-1.2 Final Ellk ay pedro mg/dL Historical Backfill: [place] Normal Na 143 133-145 Final Ellkay mmol/L mmol/L Historical Backfill: [place] Normal K 3.8 3.3-5.1 Final [place] mmol/L mmol/L Historical Backfill: [place] Normal Cl 102 96-108 Final [place] mmol/L mmol/L Historical Backfill: [place] Normal Co2 29 mmol/L 22-30 mmol/L Final E llkay Historical Backfill: [place] Normal Gap 12.0 8-16 Final Ellkay Historical Backfill: [place] Normal Ca 10.4 8.6-10.4 Final [place] mg/dL mg/dL Historical Backfill: [place] Normal Tot 8.1 gm/dL 5.9-8.4 Final [place] Prot gm/dL Historical Backfill: [place] Normal Alb 5.2 gm/dL 3.2-5.2 Final [place]kay gm/dL Historical Backfill: [place] Normal Glob 2.9 gm/dL 2.2-3.7 Final Ellkay gm/dL Historical Backfill: [place] Normal A/g 1.8 1.0-1.8 Final Ellkay Ratio Historical Backfill: [place] Normal bili,T 0.2 mg/dL 0.0-1.0 Final Ellka y mg/dL Historical Backfill: [place] Normal AST/SGO 20 U/l 0-37 U/l Final Ellkay T Historical Backfill: [place] Normal ALT/SGP 23 U/l 0-40 U/l Final Ellkay T Historical Backfill: [place] Normal Alk 87 U/L 39-117 U/L Final Ellkay Phos Historical Backfill: [place] Past Encounters None recorded. Social History Tobacco Smoking Status Current Some Day Smoker Notes: norman tian Vaccine List None recorded. Plan of Care Reminders Provider Appointments None recorded. Lab None recorded. Referral None recorded. Procedures None recorded. Surgeries None recorded. Imaging None recorded. Vitals 11/10/2018 07:45AM RE Blood Pressure 186/119 mm[Hg] 08/31/2018 09:15AM Dental Exam/Limited Blood Pressure 200/130 mm[Hg] 05/08/2018 03:45PM Extraction Blood Pressure 150/96 mm[Hg] 05/05/2018 04:30PM Dental Exam/Limited Blood Pressure 136/93 mm[Hg] 12/17/2016 09:00AM Dental Restorative Blood Pressure 144/89 mm[Hg] 12/07/2016 04:30PM Dental Restorative Blood Pressure 119/76 mm[Hg] 10/29/2016 02:15PM RE Blood Pressure 140/91 mm[Hg] 05/21/2016 09:00AM Dental Restorative Blood Pressure 147/96 mm[Hg] 01/29/2016 09:30AM Dental Exam/Limited Blood Pressure 120/69 mm[Hg] 10/29/2015 09:30AM Extraction Blood Pressure 124/84 mm[Hg] 08/21/2015 09:30AM Extraction Blood Pressure 99/63 mm[Hg] 07/04/2015 11:15AM Adult Dental Exam Blood Pressure 100/66 mm[Hg] 09/04/2010 Height Weight BMI Blood Pressure 5 ft 8 in 127 lbs 6.4 oz 19.37 kg/m2 100/62 mm[Hg] 08/21/2010 Height Weight BMI Blood Pressure 5 ft 8 in 127 lbs 9.6 oz 19.40 kg/m2 110/80 mm[Hg]
--- OUTSIDE RECORDS SUMMARY | 2022-07-24 16:40 | External Medical Summary | Summary of Care ---
:1985 Author Organization [facility] Address [address] [place] [address]- Care Team Providers Name Role Phone Shanice PIERCE, Quinten Velazquez Primary Care Physician Encounter [facility] [id number] Date(s): 03/10/21 - 03/11/21 [facility] [address] [place] [address]- [place] Encounter Diagnosis Diabetic gastroparesis (Discharge Diagnosis) - 03/11/21 Acute kidney injury superimposed on chronic kidney disease (Discharge Diagnosis) - 03/11/21 Uncontrolled hypertension (Discharge Diagnosis) - 03/11/21 Type 1 diabetes mellitus (Discharge Diagnosis) - 03/11/21 Discharge Disposition: *Home () Attending Physician: Jose Alvarado MD Admitting Physician: Pietro Young MD Referring Physician: Claritza Mojica MD Vital Signs Most recent to oldest [Reference Range]: 1 Systolic Blood Pressure [90-138 mmHg] 140 mmHg *HI* (03/11/21 2:55 PM) Diastolic Blood Pressure [60-88 mmHg] 71 mmHg (03/11/21 2:55 PM) Peripheral Pulse Rate [50-110 bpm] 79 bpm (03/11/21 2:55 PM) Problem List Condition Effective Dates Status [...] Unknown Active NSAIDs Not to take per Video Systems Engineer Unknown Act dayan Medications carvedilol 6.25 mg, tab, PO, Start: 03/11/2021 13:43:00 PDT Start Date: 03/11/21 Stop Date: 03/11/21 Status: Completedcarvedilol 6.25 mg oral tablet 6.25 mg = [...] oldest [Reference Range]: 1 Neutrophils, Absolute Count [2.00-8.50 x10(9)/L] 8.84 x10(9)/L *HI* (03/11/21 11:55 AM) Lymphocytes, Absolute Count [1.00-4.50 x10(9)/L] 2.78 x10(9)/L (03/11/21 11:55 AM) Monocytes, Absolute Count [0.10-0.90 x10(9)/L] 1.10 x1 0(9)/L *HI* (03/11/21 11:55 AM) Eosinophils, Absolute Count [0.00-0.50 x10(9)/L] 0.16 x10(9)/L (03/11/21 11:55 AM) Basophils, Absolute Count [0.00-0.20 x10(9)/L] 0.03 x1 0(9)/L (03/11/21 11:55 AM) Lactic Acid, POC [0.50-1.60 mmol/L] 0.97 mmol/L 1 (03/10/21 4:40 PM) Estimated Average Glucose 174 *NA* (03/11/21 5:44 AM) Beta-Hydroxybutyrate [<0.30 mmol/L] 4.20 mmol/L 2 *HI* (03/10/21 2:30 PM) SARS-CoV-2 (COVID-19) Qual PCR Result [not detected] n ot detected (03/10/21 5:14 PM) IG (radpxgcn-ioohp-tjvbdpaww), Absolute [0.00-0.07 x10 (9)/L] 0.05 x10(9)/L (03/11/21 11:55 AM) IG (qrvqjebi-yugpj-equpwhvyx), Percent 0.4 % *NA* (03/11/21 11:55 AM) Nucleated RBC, Absolute [0.00-0.00 x10(9)/L] 0.00 x10( 9)/L (03/11/21 11:55 AM) Nucleated RBC, Percent [0.0-0.0 %] 0.0 % (03/11/21 11:55 AM) eGFR [60-300 mL/min/1.73m] 53 mL/min/1.73m *LOW* (03/11/21 11:55 AM) Critical Call Documentation Crit Call 3 *CRIT* (03/10/21 2:30 PM) Albumin Level [3.5-5.0 g/dL] 4.0 g/dL (03/10/21 2:30 PM) Alkaline Phosphatase [40-150 U/L] 97 U/L (03/10/21 2:30 PM) Anion Gap, Blood [6-14 mmol/L] 7 mmol/L (03/11/21 11:55 AM) Bacteria 1+ *ABN* (03/10/21 3:30 PM) Basophils, Percent 0.2 % *NA* (03/11/21 11:55 AM) Bilirubin Total Level [0.2-1.2 mg/dL] 0.5 mg/dL (03/10/21 2:30 PM) Blood, Urine [negative] negative (03/10/21 3:30 PM) Calcium Level [8.7-10.4 mg/dL] 8.8 mg/dL (03/11/21 11:55 AM) Carbon Dioxide Content (CO2) [22-31 mmol/L] 28 mmol/L (03/11/21 11:55 AM) Chloride Level [100-112 mmol/L] 102 mmol/L (03/11/21 11:55 AM) Creatinine, Serum [0.72-1.25 mg/dL] 1.67 mg/dL *HI* (03/11/21 11:55 AM) Eosinophils, Percent 1.2 % *NA* (03/11/21 11:55 AM) Glucose Random [75-139 mg/dL] 93 mg/dL (03/11/21 11:55 AM) Glucose, Qualitative Urine [negative] 4+ *ABN* (03/10/21 3:30 PM) Neutrophils, Percent 68.2 % *NA* (03/11/21 11:55 AM) Hematocrit [39-50 %] 34 % *LOW* (03/11/21 11:55 AM) Ketones, Urine [negative] 2+ *ABN* (03/10/21 3:30 PM) Lipase Level [8-78 U/L] 14 U/L (03/10/21 2:30 PM) Lymphocytes, Percent 21.5 % *NA* (03/11/21 11:55 AM) Magnesium Level [1.8-2.8 mg/dL] 2.2 mg/dL (03/10/21 2:30 PM) Mean Corpuscular HGB [28-34 pg] 29 pg (03/11/21 11:55 AM) Mean Corpuscular HGB Concentrn [31.5-35.5 g/dL] 32.4 g /dL (03/11/21 11:55 AM) Mean Corpuscular Volume [80-100 fL] 89 fL (03/11/21 11:55 AM) Monocytes, Percent 8.5 % *NA* (03/11/21 11:55 AM) pH, Urine [5.0-8.0] 7.0 *NA* (03/10/21 3:30 PM) Platelet Count [150-400 x10(9)/L] 261 x10(9)/L (03/11/21 11:55 AM) Potassium Level [3.5-5.3 mmol/L] 3.6 mmol/L (03/11/21 11:55 AM) Total Protein Plasma [6.1-8.0 g/dL] 7.7 g/dL (03/10/21 2:30 PM) Protein, Urine [negative] 3+ *ABN* (03/10/21 3:30 PM) RBC Distribution Width [12.0-16.0 %] 13.6 % (03/11/21 11:55 AM) Red Blood Cell Count [4.27-5.57 x10(12)/L] 3.80 x10(12 )/L *LOW* (03/11/21 11:55 AM) Sodium Level [136-146 mmol/L] 137 mmol/L (03/11/21 11:55 AM) Specific [place], Urine [1.005-1.030] 1.020 (03/10/21 3:30 PM) ALT (SGPT) [<=55 U/L] 16 U/L (03/10/21 2:30 PM) AST (SGOT) [10-40 U/L] 18 U/L (03/10/21 2:30 PM) U Sediment See Microscopy (03/10/21 3:30 PM) Urea Nitrogen [9-25 mg/dL] 13 mg/dL (03/11/21 11:55 AM) Urine C/S If Indicated Not Indicated (03/10/21 3:30 PM) Urine Leukocyte Esterase [negative] negative *NA* (03/10/21 3:30 PM) Urine Nitrite [negative] negative *NA* (03/10/21 3:30 PM) Urine Red Blood Cells 1+ *ABN* (03/10/21 3:30 PM) White Blood Cell Count [3.5-11.0 x10(9)/L] 13.0 x10(9) /L *HI* (03/11/21 11:55 AM) Hemoglobin A1c (HbA1c) [4.0-5.6 %] 7.7 % *HI* (03/11/21 5:44 AM) Amph/Meth Intrp neg screen *NA* (03/10/21 3:30 PM) Sarah Intrp neg screen *NA* (03/10/21 3:30 PM) Benzo Intrp neg screen *NA* (03/10/21 3:30 PM) Buprenor Intrp neg screen *NA* (03/10/21 3:30 PM) THC Intrp POSITIVE SCREEN *ABN* (03/10/21 3:30 PM) Cocaine Intrp neg screen *NA* (03/10/21 3:30 PM) Methadone Intrp neg screen *NA* (03/10/21 3:30 PM) Opiates Intrp neg screen *NA* (03/10/21 3:30 PM) Oxycodone Intrp neg screen *NA* (03/10/21 3:30 PM) PCP Intrp neg screen *NA* (03/10/21 3:30 PM) TCA Intrp neg screen *NA* (03/10/21 3:30 PM) Ecstasy Intrp neg screen *NA* (03/10/21 3:30 PM) Hemoglobin [13.4-17.0 g/dL] 11.0 g/dL *LOW* (03/11/21 11:55 AM) Point of Care Glucose [75-139 mg/dL] 105 mg/dL 4 (03/11/21 12:01 PM) Venous pH [7.33-7.41] 7.39 5 (03/10/21 4:40 PM) Venous pC02 [35-50 mmHg] 44 mmHg 6 (03/10/21 4:40 PM) Venous pO2 [<=55 mmHg] <55 mmHg 7 (03/10/21 4:40 PM) Venous Bicarbonate [21.0-31.0 mmol/L] 26.8 mmol/L 8 (03/10/21 4:40 PM) Venous Base Excess [-2.0-3.0 mmol/L] 2.0 mmol/L 9 (03/10/21 4:40 PM) Venous Oxygen Saturation [65-80 %] 76 % 10 (03/10/21 4:40 PM) 1Result Comment: Performed At:[address] [place], [place], [id number] Comment: [facility]: Testing performed by [facility]: [address] [place] [address] , [place] [id number], [id number], [facility] [id number] [facility]: Joseluis Barnes MD, Assistant Elementary Teacher. [facility]:3Result Comment: Critical result: GLUCOSE Called to: DYLAN VELAZQUEZ Readback? N Date/time reported: 03/10/2021 16:06:24 PDT Tech: [email or web address] Comment: Performed At:[address] [place], [place], [id number] Comment: Performed At:[address] [place], [place], [id number] Comment: Performed At:[address] [place], [place], [id number] Comment: Performed At:[address] [place], [place], [id number] Comment: Performed At:[address] [place], [place], [id number] Comment: Performed At:[address] [place], [place], [id number] Comment: Performed At:[address] [place], [address] Immunizations Given and Recorded Vaccine Date Status Refusal Reason influenza virus vaccine, inactivated 03/18/19 Recorded
--- OUTSIDE RECORDS SUMMARY | 2022-07-24 16:40 | External Medical Summary | Encounter Summary ---
:1985 Author Organization [facility] nter Address [address] [place] [address] Care Team Providers Name Role Phone Kwame Prasad MD Primary Care Provider Reason for Visit Reason Comments Emesis Encounter Details Date Type Department Care Team Description 09/08/2020 Emergency [facility] Hernandez Varela, Nausea and vomiting, intract ability of vomiting not specified, unspecified vomiting type (Primary Dx); [address] Gastroparesis; [place] [address] Dehydration; [phone] [place], [place] Chronic kidney disease, unspecified CKD stage [address] Social History Tobacco Use Types Packs/Day Years Used Date Smoking Tobacco: Never Smokeless Tobacco: Never Alcohol Use Standard Drinks/Week Comments Never 0 (1 standard drink = 0.6 oz pure alcoho l) Alcohol Habits Answer Date Recorded How often do you have a drink containing alcohol? Never 08/11/2019 How many drinks containing alcohol do you have on a typical Not asked day when you are drinking? How often do you have six or more drinks on one occasion? No t asked Sex Assigned at Date Recorded Not on file documented as of this encounter Last Filed Vital Signs Vital Sign Reading Time Taken Comments Blood Pressure 127/87 09/08/2020 6:24 PM PST Pulse - - Temperature 37.2 C (99 F) 09/08/2020 6:24 PM PST Respiratory Rate 20 09/08/2020 6:24 PM PST Oxygen Saturation 98% 09/08/2020 9:38 PM PST Inhaled Oxygen Concentration - - Weight 90.7 kg (200 lb) 09/08/2020 6:24 PM PST Height - - Body Mass Index 31.32 08/11/2019 1:40 AM PST documented in this encounter Medications at Time of Discharge Medication Sig Dispensed Refills Start Date End Date atorvastatin (LIPITOR) 40 Take 40 mg by mouth 0 MG tablet nightly cloNIDine (CATAPRES-TTS) apply 1 patch 0 01/14/20 20 0.2 mg/24 hr topically every week fluvoxaMINE (LUVOX) 50 MG Take 100 mg by mouth 0 tablet nightly furosemide (LASIX) 20 MG take 1 tablet by mouth 0 11/30/2019 tablet once daily if needed for EDEMA/HYPERTENSIO... (REFER TO PRESCRIPTION NOTES). gabapentin (NEURONTIN) Take 600 mg by mouth 3 0 300 MG capsule (three) times daily insulin lispro (INSULIN Inject into the skin as needed 12am-2am 0 PUMP, PATIENT'S OWN,) Basal 1.2, correct factor 1: 45, carb ratio 1:13, target 120 2am-7am Basal 0.7, correct factor 1:45, carb ratio 1:13, target 14 0 7am-12am Basal 1.2, correct factor 1:45, carb ratio 1:13, target 12 0 lisinopriL Take 5 mg by mouth 0 11/30/2019 (PRINIVIL,ZESTRIL) 5 MG tablet LORazepam (ATIVAN) 0.5 MG Take 0.5 mg by mouth 3 0 tabletIndications: panic (three) times daily as attack needed for Anxiety Indications: panic attack melatonin 10 mg Tab Take by mouth nightly 0 as needed multivitamin Take 1 tablet by mouth 0 (MULTIVITAMIN) tablet nightly omeprazole (PRILOSEC) 20 take 1 capsule by 0 02/2020 MG capsule mouth twice a day BEFORE BREAKFAST AND DINNER FOR 90 DAYS ondansetron (ZOFRAN-ODT) dissolve 1 tablet ON 0 0 03/28/2020 4 MG disintegrating TONGUE every 6 hours tablet if needed for nausea promethazine (PHENERGAN) Inject 12.5 mg into 0 25 mg/mL injection the muscle every 6 (six) hours as needed senna (SENOKOT) 8.6 mg Take 8.6 mg by mouth 0 tablet nightly as needed for Constipation tadalafil (CIALIS) 10 MG Take 5 mg by mouth 0 tablet nightly UNABLE TO FIND 50 mg by Nasal route 3 0 (three) times daily as needed Ketamine 50 mg/ml, 1-2 sprays into each nostril TID PRN nausea and vomitting documented as of this encounter ED Notes Anahy Lawrence RN - 09/08/2020 10:56 PM PST Pt agreed with discharge at this time. Discharge instructions provided and follow up care provided. No further questions from pt. Ambulated to exit with NAD. Anahy Lawrence RN - 09/08/2020 10:22 PM PST IVT paged for port de-accessed. Anahy Lawrence RN - 09/08/2020 9:43 PM PST at bedside to reassess pt. Anahy Lawrence RN - 09/08/2020 9:12 PM PST Ice chips provided to pt. 2nd liter of fluids infusing. No other needs at this time. Anahy Lawrence RN - 09/08/2020 7:08 PM PST Thiago Lassiter RN at bedside to access port. Hernandez Varela MD - 09/08/2020 6:48 PM PST CHIEF COMPLAINT: Chief Complaint Patient presents with Emesis Primary Care Provider: Kwame Prasad MD. Arrival mode: pv History provided by: patient and his . HPI: This is a 34 y.o. male who presents with nausea/vomiting, 3x. Same presentations as multiple other ER visits. History of recurrent ER visits for nausea vomiting gastroparesis. Had 8 ER visits in 2019. PMHx DM1: Diagnosed at age 13. A1c 10.4 on 08/11/2019. Per 05/07/2020 endocrinology note: "he is demonstrating persistent hyperglycemia with significant variability". Prior admissions for DKA, last in 2019. Complicated by diabetic autonomic neuropathy, diabetic gastroparesis (gastric pacemaker installed on , previously on domperidone), diabetic kidney disease. 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 Garcia at . He has been doing IM phenergan, IM zofran, po ativan, po benadryl. Sometimes it works and sometimes it doesn't. Last dose of IM phenergan this morning. Ran out of IM zofran yesterday. Didn't take any oral zofran today. Didn't take any oral ativan and benadryl today. IN ketamine from back home [facility]. He did take this today. 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 [place] lightheaded when he got up. No lightheadiness at this time. No syncope. Has gastric pacemaker and insulin pump and a CGM. BS at home have been in the 180s. He vomited about 1x an hour, same as yesterday sometimes more than that. No hematesis. No abd pain, just transient muscle cramps after he vomits. Last BM today, no hematemesis, no melena.No chest pain, no sore throat. No sob. No dysuria. No increased Ufreq/urgency. Primary care provider: Dr. Prasad Past Medical History: Past Medical History: Diagnosis Date Anxiety Diabetes mellitus (HCC) Gastroparesis Hypertension Neuropathy Renal disorder Type 1 diabetes mellitus with autonomic neuropathy (HCC) PSHx BUNIONECTOMY Left great WISDOM TOOTH EXTRACTION HAND SURGERY 07/18/2017 - 07/17/2018 pins on 3rd and 4th fingers Placement of insulin pump Medications: Discharge Medication List as of 09/08/2020 10:21 PM CONTINUE these medications which have NOT CHANGED Details atorvastatin (LIPITOR) 40 MG tablet Take 40 mg by mouth nightly, Historical Med carvediloL (COREG) 3.125 MG tablet Take 1 tablet (3.125 mg total) by mouth 2 (two) times daily with meals, Starting 08/11/2019, Until 08/10/2020, Normal cloNIDine (CATAPRES-TTS) 0.2 mg/24 hr apply 1 patch topically every week, Historical Med fluvoxaMINE (LUVOX) 50 MG tablet Take 100 mg by mouth nightly , Historical Med furosemide (LASIX) 20 MG tablet take 1 tablet by mouth once daily if needed for EDEMA/HYPERTENSIO...(REFER TO PRESCRIPTION NOTES)., Historical Med gabapentin (NEURONTIN) 300 MG capsule Take 600 mg by mouth 3 (three) times daily, Historical Med insulin lispro (INSULIN PUMP, PATIENT'S OWN,) Inject into the skin as needed 12am-2am Basal 1.2, correct factor 1:45, carb ratio 1:13, target 120 2am-7am Basal 0.7, correct factor 1:45, carb ratio 1:13, target 140 7am-12am Basal 1.2, correct factor 1:45, carb ratio 1:13, target 120, Historical Med lisinopriL (PRINIVIL,ZESTRIL) 5 MG tablet Take 5 mg by mouth, Starting 11/30/2019, Historical Med LORazepam (ATIVAN) 0.5 MG tablet Take 0.5 mg by mouth 3 (three) times daily as needed for Anxiety Indications: panic attack, Historical Med melatonin 10 mg Tab Take by mouth nightly as needed, Historical Med multivitamin (MULTIVITAMIN) tablet Take 1 tablet by mouth nightly, Historical Med omeprazole (PRILOSEC) 20 MG capsule take 1 capsule by mouth twice a day BEFORE BREAKFAST AND DINNER FOR 90 DAYS, Historical Med ondansetron (ZOFRAN-ODT) 4 MG disintegrating tablet dissolve 1 tablet ON TONGUE every 6 hours if needed for nausea, Historical Med promethazine (PHENERGAN) 25 mg/mL injection Inject 12.5 mg into the muscle every 6 (six) hours as needed, Starting Jihan 10/04/2019, Historical Med senna (SENOKOT) 8.6 mg tablet Take 8.6 mg by mouth nightly as needed for Constipation, Historical Med tadalafil (CIALIS) 10 MG tablet Take 5 mg by mouth nightly, Historical Med UNABLE TO FIND 50 mg by Nasal route 3 (three) times daily as needed Ketamine 50 mg/ml, 1-2 sprays into each nostril TID PRN nausea and vomitting, Historical Med ALLERGIES Compazine [prochlorperazine], Nsaids (non-steroidal anti-inflammatory drug), Reglan [metoclopramide hcl], and Silver SH Social History Tobacco Use Smoking status: Never Smoker Smokeless tobacco: Never Used Substance Use Topics Alcohol use: Never Frequency: Never REVIEW OF SYSTEMS: See above HPI for further details. CONSTITUTIONAL : No fever EYES: no eye complaints. ENT: no sore throat. CARDIOVASCULAR : No chest pain RESPIRATORY : No SOB. GI : see above HPI. URINARY: no flank pain. MUSCULOSKELETAL : no back pain SKIN : No rash. HEME : No easy bleeding or bruising. PSYCH : No anxiety NEUROLOGIC : No headache PHYSICAL EXAM: ED Triage Vitals [09/08/20 1824] Temp Pulse Resp BP SpO2 SPO2 Pulse Rate Pain Score 37.2 C (99 F) -- 20 127/87 99 % 110 -- ED Encounter Vitals Date and Time Temp Pulse Resp BP SpO2 SPO2 Pulse Rate ID 09/08/202012 -- -- -- -- 95 % 88 MM 09/08/202043 -- -- -- -- 98 % 91 MM 09/08/202107 -- -- -- -- 96 % 87 MM 09/08/202137 -- -- -- -- 98 % 90 MM GENERAL : Vital signs reviewed - are reviewed. The initial pulse oximetry was interpreted by me (the emergency physician) as being adequate for this patient. Distress: He is in moderate discomfort. He is non-toxic. General Appearance: healthy-appearing, well-developed, well-nourished and alert No active emesis in the room. at bedside. Head: Atraumatic, normocephalic, normal facies Eyes: no drainage, no erythema. No scleral icterus. ENT: external ears normal, nares normal, MM dry Neck: neck supple Lungs: Clear to auscultation, equal breath sounds, no wheezing or crackles, good air movement, no respiratory distress Heart: Regular rate and rhythm. No murmurs or noted abnormal heart sounds Abdomen: Soft, no focal tenderness. No ttp at McBurney's point. Negative Gilmore's sign. No masses. No peritoneal signs: no rebound/guarding or rigidity. No palpable hernia. No distention. Neuro: alert and oriented, conversant, no focal deficits noted Extremities: Extremities atraumatic, warm, without cyanosis or edema. Psych: Normal, appropriate interactions Skin: Normal, pink warm and dry without rash or jaundice Vascular: +2 radial aa pulses symmetric. DATA GATHERING The patient was seen and evaluated by myself. Prior EMR records reviewed in [facility] as available and clinically relevant. Pertinent Labs & Imaging studies from today's visit reviewed. (See below for details) Medication and Allergy list reviewed. The [place] of [employer] Services and Ryley Almeida, Governor of [facility], have declared a State of Public Health Emergency due to the spread of a novel coronavirus and disease COVID-19. This has led to significant resource scarcity and potential delays in care. I reviewed his previous ER visits and the medications he has received during his previous ER visits. MDM: 34 y.o. male presents with persistent N/V. Has known IDDM c/b gastroparesis and has multiple ER visits for same presentation. This feels very similar to previous visits. Suspect this is an exacerbation of his gastroparesis. DDx: includes DKA. Denies any abd pain and has benign abd exam. Given this low suspicion for acute cholecystitis, cholangitis, SBO, LBO, acute appendicitis. I do not think he needs any emergent imaging of his abdomen. Work-up: CBC and metabolic panel are ordered to evaluate for possible anemia, thrombocytopenia, renal insufficiency, liver enzyme elevation, or acute electrolyte abnormality requiring emergent intervention. Lipase for possible pancreatitis. VBG. Treatments: IV antiemetics, and IV hydration will be ordered for symptomatic improvement. IV ativan.The patient will be monitored and reevaluated. Results Labs: Labs Reviewed CBC NO DIFF - Abnormal; Notable for the following components: Result Value White Blood Cells 11.04 (*) Hemoglobin 13.4 (*) Hematocrit 40.0 (*) Platelet Count 338 (*) All other components within normal limits COMPREHENSIVE METABOLIC PANEL - Abnormal; Notable for the following components: Glucose 188 (*) BUN 37.0 (*) Creatinine 2.91 (*) Sodium 132 (*) Potassium 3.1 (*) Chloride 84 (*) CO2 42 (*) Alkaline Phosphatase 115 (*) All other components within normal limits LIPASE - Abnormal; Notable for the following components: Lipase 4 (*) All other components within normal limits I-STAT VBG+/LACTATE - Abnormal; Notable for the following components: pH Venous 7.547 (*) HCO3, Husam 42.7 (*) Base Excess, Husam 20.0 (*) O2 Sat, Husam 80.0 (*) All other components within normal limits EMERGENCY DEPARTMENT COURSE AND ASSESSMENT: Pt care Timeline 20:30 feels better. No emesis. Would like to try some ice chips. Denies any abd pain. Will start getting ready for discharge. 20:50 tolerated the chips, would like to wait for 2nd bolus to finish. 21;20 repeat bolus finished. Feels better, drinking po. Dc home. Subsequent vitals: Vitals: 09/08/20201209/08/20 2044 09/08/20 2108 09/08/20 2138 BP: Resp: Temp: TempSrc: SpO2: 95% 98% 96% 98% Weight: ED course/Plan: 1. N/V, gastroparesis: WBC nl. Hb/hct stable. Glucose 188, normal AG, Hc03 42 likely from his emesis. No signs of DKA. LFTs nl. Lipase nl. 2. Mild HypoK: K is 3.1. this was supplemented. 3. CKD: Cr is 2.91, GFR 25 which is around his baseline. Typically around 2.53-3.24. Tolerated po challenge. Has IM phenergan, benadryl at home. They plan to call the GI physician eduar for refill of his IM zofran and ativan. Still has some ativan left. Dc home. Diagnosis: 1. Nausea and vomiting, intractability of vomiting not specified, unspecified vomiting type 2. Gastroparesis 3. Dehydration 4. Chronic kidney disease, unspecified CKD stage . Follow up: [facility] [address] [facility] [address] if any fevers, any worsening abd pain, persistent vomiting [place] [address] [facility] [phone] Schedule an appointment as soon as possible for a visit in 2 days . Medications on Discharge Discharge Medication List as of 09/08/2020 10:21 PM DISPOSITION: The patient is in stable condition on discharge. I discussed with the patient in person the diagnosis, treatment plan, indications for return to the emergency department, and for expected follow-up. The patient verbalized an understanding. The patient is asked if there are any questions or concerns. We discuss the case, until all issues are addressed to the patient's satisfaction. Hernandez Varela MD Attending Physician [facility] Hernandez Varela MD 09/09/20 0516 Tana Garcia RN - 09/08/2020 6:24 PM PST Hx gastroparesis, diabetes, Vomiting for 3 days documented in this encounter Miscellaneous Notes [facility]ACIA-Visit History - [place] Interface Model - 09/08/2020 6:21 PM PST [facility]acia has no Care Guidelines for this patient. Prescription Review PDMP Report (previous six months). Fill Date Drug Description Qty. Prescriber CS MED --------- ---- -- --- 2020-08-23 OXYCODONE-ACETAMINOPHEN 5-325 6 HARRISON LOVE MD 2 22.5 2020-08-19 LORAZEPAM 1 MG TABLET 20 SABINA RASHID 4 0.0 2020-07-28 LORAZEPAM 1 MG TABLET 10 SABINA RASHID 4 0.0 2020-06-17 LORAZEPAM 1 MG TABLET 10 SABINA RASHID 4 0.0 12 Month Prescription Summary -Number of CS Rx:5 -Number of CS-II Rx:2 -Total dispensed quantity:58 -Unique Prescribers:3 -Unique Pharmacies:1 -Opioid Rx Count:2 -Long Acting Opioid Rx Count:0 -Benzo Rx Count:3 ED/UCC VISIT TRACKING (3 MO.) 09/08/2020 18:20 Sid LOREDO TYPE: Emergency DIAGNOSES: - Dehydrated; Emesis; Poss Hypotension 08/12/2020 04:27 Sid LOREDO TYPE: Emergency DIAGNOSES: - Chronic kidney disease, stage 3 unspecified - Type 2 diabetes mellitus with diabetic autonomic (poly)neuropathy - Type 1 diabetes mellitus with hyperglycemia - Dehydration - Abdominal Pain - Dehydration/nausea/vomiting - Gastroparesis - Type 1 diabetes mellitus with diabetic chronic kidney disease - Nausea with vomiting, unspecified 08/05/2020 19:56 Sid LOREDO TYPE: Emergency DIAGNOSES: - Emesis - Other specified abnormal findings of blood chemistry - Nausea with vomiting, unspecified - Dehydration - Emesis; Abdominal Pain - Gastroparesis 06/12/2020 18:48 Sid LOREDO TYPE: Emergency DIAGNOSES: - Gastroparesis - NAUSEA,DEHYDRATION - Dehydration - Acute kidney failure, unspecified - Type 1 diabetes mellitus with hyperglycemia - Emesis INPATIENT VISIT TRACKING (1 MO.) No inpatient visits to display in this time frame EDeena. VISIT COUNT (12 MO.) 8 [facility] 1 [facility] TOTAL 9 NOTE: Visits indicate total known visits. CARE PROVIDERS KWAME PRASAD [facility] Current PHONE: [phone] CLAUDIA SIEGEL L, Nurse Practitioner: Psychiatric/Mental Health Current WENDY Serrano PHONE: Unknown [facility] Primary Care Current PHONE: Unknown ML AMBROSIO Primary Care Current JOSE PHONE: Unknown [facility] Primary Care Current PHONE: [phone] [email or web address] Security Events No recent Security Events currently on file documented in this encounter Plan of Treatment Not on filedocumented as of this encounter Procedures Procedure Name Priority Date/Time Associated Comments Diagnosis I-STAT VBG+/LACTATE Routine 09/08/2020 8:00 PM Re sults for this PST procedure are i n the results section. CBC NO DIFF STAT 09/08/2020 7:17 PM Results f or this PST procedure are i n the results section. LIPASE STAT 09/08/2020 7:17 PM Results f or this PST procedure are i n the results section. COMPREHENSIVE STAT 09/08/2020 7:17 PM Results for this METABOLIC PANEL PST procedure ar e in the results section. documented in this encounter Results (ABNORMAL) I-STAT VBG+/LACTATE (09/08/2020 8:00 PM PST) Analysis Performed At Patho logist Time Signature pH Venous 7.547 (H) 7.310 - 09/08/2020 [facility] 7.410 8:05 PM PST pCO2 Venous 49.2 40.0 - 09/08/2020 [facility] 52.0 mmHg 8:05 PM PST pO2 Venous 40.0 30.0 - 09/08/2020 [facility] 50.0 mmHg 8:05 PM PST HCO3, Husam 42.7 (H) 22.0 - 09/08/2020 [facility] 27.0 8:05 PM PST mmol/L Base Excess, 20.0 (H) -3.0 - 3.0 09/08/2020 [facility] Husam mmol/L 8:05 PM PST O2 Sat, Husam 80.0 (L) 92.0 - 09/08/2020 [facility] 98.0 % 8:05 PM PST Lactate, 0.78 0.40 - 09/08/2020 [facility] Venous 2.00 8:05 PM PST mmol/L Specimen Anatomical Collection Method Collection Time Receive d Time (Source) Location / / Volume Laterality Blood specimen 09/08/2020 8:00 PM 021 8:04 (specimen) PST PM PST (Blood) Poct Results Unsolicted POCT ORDERABLES - DEVICE Performing Organization Address City/[facility]/ZIP [facility] Phon e Number [facility] [address] [place] [address] (ABNORMAL) Lipase (09/08/2020 7:17 PM PST) athologist [facility] Lipase 4 (L) 11 - 82 U/L 09/08/2020 8:23 [facility] PM PST Specimen Anatomical Collection Method Collection Time Receive d Time (Source) Location / / Volume Laterality Blood specimen Line / Unknown 09/08/2020 7:17 PM 09/08 7:27 (specimen) PST PM PST Hernandez Varela MD LAB BLOOD ORDERABLES Performing Organization Address City/[facility]/ZIP [facility] Phon e Number [facility] [address] [place] [address] [phone] (ABNORMAL) Comprehensive metabolic panel (09/08/2020 7:17 PM PST) athologist Signature Glucose 188 (H) 74 - 109 09/08/2020 [facility] mg/dL 8:23 PM PST Comment: Glucose Reference Range : ADA 2020 Diagnostic Categories for nonpr egnant adults: Pre-Diabetes: Fasting glucose of 100-125 mg/dL Diabetes: Fasting glucose of 126 mg/dL or greater Random glucose of 200 mg/dL or greater i n patients with classic symptoms of hyperglycemia or hyperglycemic crisis. BUN 37.0 (H) 7.0 - 25.0 mg/dL 09/08/2020 8:23 PM PST [facility] Creatinine 2.91 (H) 0.70 - 1.30 mg/dL 09/08/2020 8:23 PM PS T [facility] eGFR 25 m/m/1.73 09/08/2020 8:23 PM [facility] Comment: GFR < 60: Chronic kidney disease if foun d over a 3 month period. Sodium 132 (L) 136 - 145 mmol/L 09/08/2020 8:23 PM [facility] Potassium 3.1 (L) 3.5 - 5.1 mmol/L 09/08/2020 8:23 PM [facility] Chloride 84 (L) 98 - 107 mmol/L 09/08/2020 8:23 PM [facility] CO2 42 (H) 21 - 31 mmol/L 09/08/2020 8:23 PM [facility] Anion Gap 6 5 - 16 mmol/L 09/08/2020 8:23 PM [facility] Calcium 9.3 8.6 - 10.3 mg/dL 09/08/2020 8:23 PM [facility] Total Protein 7.6 6.0 - 8.3 G/DL 09/08/2020 8:23 PM PS T [facility] Albumin 4.2 3.5 - 5.7 G/DL 09/08/2020 8:23 PM [facility] Bilirubin Total 0.5 0.3 - 1.0 mg/dL 09/08/2020 8:23 PM [facility] Alkaline Phosphatase 115 (H) 34 - 104 U/L 09/08/2020 8:23 PM [facility] ALT (SGPT) 9 7 - 52 U/L 09/08/2020 8:23 PM [facility] AST (SGOT) 14 13 - 39 U/L 09/08/2020 8:23 PM [facility] Specimen Anatomical Collection Method Collection Time Receive d Time (Source) Location / / Volume Laterality Blood specimen Line / Unknown 09/08/2020 7:17 PM 09/08 7:27 (specimen) PST PM [facility] Hernandez Varela MD LAB BLOOD ORDERABLES Performing Organization Address City/State/ZIP Code Phon e Number [facility] [address] [place] [address] (ABNORMAL) CBC No Diff (09/08/2020 7:17 PM PST) [facility] Method Time Signature White Blood 11.04 (H) 4.23 - 09/08/2020 [facility] Cells 9.07 7:49 PM PST 10E3/uL RBC 4.66 4.20 - 09/08/2020 [facility] 5.70 7:49 PM PST 10E6/uL Hemoglobin 13.4 (L) 13.7 - 09/08/2020 [facility] 17.5 g/dL 7:49 PM PST Hematocrit 40.0 (L) 40.1 - 09/08/2020 [facility] 51.0 % 7:49 PM PST MCV 85.8 79.0 - 09/08/2020 [facility] 92.2 fL 7:49 PM PST MCH 28.8 25.7 - 09/08/2020 [facility] 32.2 pg 7:49 PM PST MCHC 33.5 32.3 - 09/08/2020 [facility] 36.5 g/dL 7:49 PM PST RDW-SD 40.3 35.1 - 09/08/2020 [facility] 43.9 fl 7:49 PM PST RDW-CV 13.0 11.6 - 09/08/2020 [facility] 14.4 % 7:49 PM PST Platelet Count 338 (H) 163 - 337 09/08/2020 [facility] 10E3/uL 7:49 PM PST MPV 10.9 9.4 - 12.4 09/08/2020 [facility] fL 7:49 PM PST Specimen Anatomical Collection Method Collection Time Receive d Time (Source) Location / / Volume Laterality Blood specimen Line / Unknown 09/08/2020 7:17 PM 09/08 7:28 (specimen) PST PM PST Hernandez Varela MD LAB BLOOD ORDERABLES Performing Organization Address City/State/ZIP Code Phon e Number [facility] [address] [place] [address] [phone] documented in this encounter Visit Diagnoses Diagnosis Nausea and vomiting, intractability of v omiting not specified, unspecified vomiting type - Primary Gastroparesis Dehydration Chronic kidney disease, unspecified CKD stage documented in this encounter Administered Medications Inactive Administered Medications - up to 3 most recent administrations Medication Order MAR Action Action Date Dose Rate Site diphenhydrAMINE (BENADRYL) Given 09/08/2020 8:00 PM PST 50 mg injection 50 mg 50 mg, Intravenous, Once On Tue09/08/20 at 1938, For 1 dose heparin lock flush (porcine) (100 Given 09/08/2020 10:43 PM PST 500 Units unit/mL) flush 500 Units 500 Units (5 mL), Intra-Catheter, As needed, Line Care, Only use prior to de-access Starting on Tue09/08/20 at 2232, Only use prior to de-access. -For Port-A-Cath flush lidocaine (PF) (XYLOCAINE) 10 mg/mL (1 % ) injection 0.2 mL 0.2 mL, Intradermal, As needed, Line Car e Starting on Tue09/08/20 at 2232, For Pe ripheral Line. Midline & PICC Placements, and Accessing Ports lidocaine (XYLOCAINE) (1%) injection 0.2 mL 0.2 mL, Intradermal, As needed, Line Car e Starting on Tue09/08/20 at 2232, For Pe ripheral Line. Midline & PICC Placements, and Accessing Ports LORazepam (ATIVAN) injection 1 mg Given 09/08/2020 8:03 PM PST 1 mg 1 mg, Intravenous, Once On Tue09/08/20 at 1938, For 1 dose ondansetron (ZOFRAN) 4 mg/2 mL injection 4 mg Given 09/08/2020 7:16 PM PST 4 mg 4 mg, Intravenous, Once On Tue09/08/20 at 1849, For 1 dose, If ordered IV route: may give undiluted by slow IV push over 1/2 to 2 minutes promethazine (PHENERGAN) injection 25 mg Given 09/08/2020 8:05 PM PST 25 mg 25 mg, Intravenous, Once On Tue09/08/20 at 1938, For 1 dose sodium chloride 0.9 % flush 10 mL 10 mL, Intra-Catheter, As needed, Line C are Starting on Tue09/08/20 at 2232, After IV medications . -For Port-A-Cath flush sodium chloride 0.9 % flush 10 mL 10 mL, Intra-Catheter, Every 8 hours First dose on Tue09/09/20 at 0000, -For Port-A-Cath f lush sodium chloride 0.9 % flush 20 mL 20 mL, Intra-Catheter, As needed, Line Care, After blo od sample AND/OR blood products Starting on Tue09/08/20 at 2232, -For Port-A-Cath flu sh sodium chloride 0.9 % infusion New Bag 09/08/2020 7:16 PM PST 1,000 mLs 1000 mL/hr 1,000 mL at 1,000 mL/hr, Intravenous, Once, On Tue09/08/20 at 1849, For 1 dose sodium chloride 0.9 % infusion New Bag 09/08/2020 9:08 PM PST 1,000 mLs 1000 mL/hr 1,000 mL at 1,000 mL/hr, Intravenous, Once, On Tue09/08/20 at 2100, For 1 dose sodium chloride 0.9 % infusion 25 mL at 100 mL/hr, Intracatheter, As needed, Line Care, Starting on Tue09/08/20 at 2232, For IV infusion medications, flush IV line at the same rate as IV infusion medication with 25 mL 0.9% sodium chloride after infus ion complete (use 250 mL volume bag or smaller). For blood produc ts, clear IV line with 0.9% sodium chloride before and after infusions. documented in this encounter Active and Recently Administered Medications Times are shown in PST. Scheduled Medication Order 09/06/2020 09/07/2020 09/08/2020 diphenhydrAMINE (BENADRYL) injection 50 mg (COMPLETED) 1999 (Given - Provider: Anahy Lawrence RN) 50 mg, Intravenous, Once Tue09/08/20 at 1938, For 1 dose LORazepam (ATIVAN) injection 1 mg (COMPLETED) 2002 (Given - Provider: Anahy Lawrence RN) 1 mg, Intravenous, Once Tue09/08/20 at 1938, For 1 dose ondansetron (ZOFRAN) 4 mg/2 mL injection 4 mg (COMPLETED) 1915 (Given - Provider: Thiago Benítez RN) 4 mg, Intravenous, Once Tue09/08/20 at 1849, For 1 dose, If ordered IV route: may give undiluted by slow IV push over 1/2 to 2 minutes ondansetron (ZOFRAN) 4 mg/2 mL injection 4 mg 2111 (Hold - Provider: Anahy Lawrence RN - Reason: Contraindicated - Comment: pt reports nausea is controlled) 4 mg, Intravenous, Once Tue09/08/20 at 2100, For 1 dose, If ordered IV route: may give undiluted by slow IV push over 1/2 to 2 minutes potassium chloride SA (K-DUR,KLOR-CON) CR tablet 40 mEq 2211 (Not Given - Provider: Anahy Lawrence RN - Reason: Patient/family refused) 40 mEq, Oral, Once Tue09/08/20 at 2026, For 1 dose, May break in half or dissolve in water. DO NOT CRUSH BEADS. promethazine (PHENERGAN) injection 25 mg (COMPLETED) 2004 (Given - Provider: Anahy Lawrence, NICOLE) 25 mg, Intravenous, Once Tue09/08/20 at 1938, For 1 dose sodium chloride 0.9 % flush 10 mL(Linked Group 1) 10 mL, Intra-Catheter, Every 8 hours First dose on Tue09/09/20 at 0000, -For Port-A-Cath flush sodium chloride 0.9 % infusion 1,000 mL (COMPLETED) 1915 (New Bag - Provider: Thiago Benítez RN)2015 (Stopped - Provider: Anahy Lawrence, NICOLE) at 1,000 mL/hr, Intravenous, Once, Tue09/08/20 at 1849, For 1 do se sodium chloride 0.9 % infusion 1,000 mL (COMPLETED) 2107 (New Bag - Provider: Anahy Lawrence RN)2221 (Stopped - Provider: Anahy Lawrence, NICOLE) at 1,000 mL/hr, Intravenous, Once, Tue09/08/20 at 2100, For 1 do se PRN Medication Order 09/06/2020 09/07/2020 09/08/2020 heparin lock flush (porcine) (100 unit/mL) flush 500 Units(Linke d Group 1) 2242 (Given - Provider: Diane Harp, NICOLE) 500 Units (5 mL), Intra-Catheter, As nee ded, Line Care, Only use prior to de- access Starting Tue09/08/20 at 2232, Only use prior to de-access. -For Port-A-Cath flush lidocaine (PF) (XYLOCAINE) 10 mg/mL (1 %) injection 0.2 mL(Linke d Group 2) 0.2 mL, Intradermal, As needed, Line Car e Starting 09/08/20 at 2232, For Peripheral Line. Midline & PICC Placements, and Accessing Ports lidocaine (XYLOCAINE) (1%) injection 0.2 mL(Linked Group 2) 0.2 mL, Intradermal, As needed, Line Car e Starting Tue09/08/20 at 2232, For Peripheral Line. Midline & PICC Placements, and Accessing Ports sodium chloride 0.9 % flush 10 mL(Linked Group 1) 10 mL, Intra-Catheter, As needed, Line C are Starting 09/08/20 at 2232, After IV medications. -For Port-A-Cath flush sodium chloride 0.9 % flush 20 mL(Linked Group 1) 20 mL, Intra-Catheter, As needed, Line C are, After blood sample AND/OR blood products Starting Tue09/08/20 at 2232, -For Port-A-Cath flush sodium chloride 0.9 % infusion 25 mL at 100 mL/hr, Intracatheter, As needed, Line Care, Starting Tue09/08/20 at 2232, For IV infusion medications, flush IV line at the same rate as IV infusion medication with 25 mL 0.9% sodium chloride aft er infusion complete (use 250 mL volume bag or smaller). For blood products, clear IV line with 0.9% sodium chloride before and after infusions. Linked Groups Order Group 1: sodium chloride 0.9 % flush 10 mLJump to med 10 mL, Intra-Catheter, As needed, Line C are Starting 09/08/20 at 2232
After IV medications. -For Port-A-Cath flush
And sodium chloride 0.9 % flush 10 mLJump to med 10 mL, Intra-Catheter, Every 8 hours F irst dose on Tue09/09/20 at 0000
-For Port-A-Cath flush
And heparin lock flush (porcine) (100 unit/mL) flush 500 UnitsJump to med 500 Units (5 mL), Intra-Catheter, As nee ded, Line Care, Only use prior to de- access Starting 09/08/20 at 2232
Only use prior to de-access. -For Port-A-Cath flush
And sodium chloride 0.9 % flush 20 mLJump to med 20 mL, Intra-Catheter, As needed, Line C are, After blood sample AND/OR blood products Starting Tue09/08/20 at 2232
-For Port-A-Cath flush
Group 2: lidocaine (PF) (XYLOCAINE) 10 mg/mL (1 %) injection 0.2 mLJump to med 0.2 mL, Intradermal, As needed, Line Car e Starting Tue09/08/20 at 2232
For Peripheral Line. Midline & PICC Placements, and Accessing Ports
Or lidocaine (XYLOCAINE) (1%) injection 0.2 mLJump to med 0.2 mL, Intradermal, As needed, Line Car e Starting 09/08/20 at 2232
For Peripheral Line. Midline & PICC Placements, and Accessing Ports
documented in this encounter Care Teams Superintendent Horticulture Relationship Specialty Start Date End Date Kwame Prasad MD PCP - General Family Medicine 09/08/20 [id number] [place] [address] documented as of this encounter
--- OUTSIDE RECORDS SUMMARY | 2022-07-24 16:40 | External Medical Summary | Summary of Care ---
:1985 Author Organization [facility] Address [address] [place] [phone] Care Team Providers Name Role Phone Means Flynn PIERCE Primary Care Physician Encounter [id number] Date(s): 06/09/20 - 06/09/20 [facility] [address] [place] [id number] [facility] Discharge Disposition: *Home (01) Attending Physician: Angela Wilson MD Vital Signs Most recent to oldest [Reference Range]: 1 Temperature (DegF) 97.5 degF (06/09/20 11:27 AM) Body Mass Index 32.7 kg/m2 (06/09/20 11:27 AM) Blood Pressure [90-138/60-88 mmHg] 128/80 mmHg (06/09/20 11:27 AM) Peripheral Pulse Rate [50-110 bpm] 82 bpm (06/09/20 11:27 AM) Problem List Condition Effective Dates Status [...] Unknown Active NSAIDs Not to take per Hr Manager Unknown Act dayan Medications carvedilol 6.25 mg [...] Status Refusal Reason influenza virus vaccine, inactivated 9/1/19 Recorded
--- OUTSIDE RECORDS SUMMARY | 2022-07-24 16:40 | External Medical Summary | Encounter Summary ---
:1985 Author Organization [facility] Address [address] [place] [address] Care Team Providers Name Role Phone Unavailable Primary Care Provider Unavailable Reason for Visit Reason Comments Abdominal Pain Encounter Details Date Type Department Care Team Description 08/12/2020 Emergency [facility] EMERGENCY Fernando Huber, Non-intractable vomiting wit h nausea, unspecified vomiting type (Primary Dx); [address] MD Gastroparesis due to DM ([facility]); [place] [address] CKD stage 3 due to type 1 diabetes israel ram ([facility]); [phone] [place], [place] [address] Dehydration; [phone] Hyperglycemia d ue to type 1 diabetes mellitus ([facility]) (Work) Social History Tobacco Use Types Packs/Day Years [...] Sign Reading Time Taken Comments Blood Pressure 149/95 08/12/2020 7:40 AM PST Pulse - - Temperature 36 C (96.8 F) 08/12/2020 4:33 AM PST Respiratory Rate 14 08/12/2020 7:40 AM PST Oxygen Saturation 96% 08/12/2020 7:40 AM PST Inhaled Oxygen Concentration - - Weight - - Height - - Body Mass Index - - documented in this encounter Discharge Instructions Discharge InstructionsFernando Huber MD - 08/12/2020 6:10 AM PST Images from the original note were not included. SPECIAL INSTRUCTIONS: DR. FERNANDO HUBER MD was your treating physician today. Please return to the emergency department if you develop new or worsening symptoms, especially fevers, blood in stools or vomit, abdominal pain Follow-up with Dr. Prasad if not improving in the next 24-48 hours. Please closely and completely review the discharge instructions that were given to you today as wellas these special instructions. If you have any questions or concerns, PLEASE feel absolutely free to contact the [facility] at [phone] (then press 1) and ask to speak to the charge nurse on duty for clarification. Our phone lines are always open for our patients. Dehydration The human body is comprised largely of water. If you lose more fluids than you take in, you can become dehydrated. This means there is not enough fluid in your body for it to function right. Mild dehydration can cause weakness, confusion, or muscle cramps. In severe cases, it can lead to kidney damage, brain damage, and even . That's why getting treatment right away is crucial. Risk factors Anyone can become dehydrated. But babies, children, and older adults are at greatest risk. You are most likely to lose fluids with severe vomiting, diarrhea, or a fever. Exercising or working hard--especially in hot weather--can also cause extra fluid loss. Using certain medicines such as water pills ( diuretics) that make you urinate more also can raise your risk, particularly in the hot summer months. What to do Drinking liquids is the best way to prevent dehydration. Water is best, but juice or frozen pops canalso help. For adults, don't drink liquids that contain caffeine or alcohol to rehydrate. These drinks will cause you to urinate more, increasing your risk for more fluid loss. Your healthcare providermay suggest drinking electrolyte solutions. These put back electrolytes that may be lost along with the fluid. When to go to the emergency room (ER) Go to an ER right away for these symptoms: Adults Very dark urine and little or no urine output Dizziness, weakness, confusion, fainting Children Sunken eyes For babies, sunken soft spot (fontanelle) on the head Little or no urine output (for babies, no wet diaper in 8 hours) Very dark urine Skin that doesn't bounce back quickly when pinched Crying without tears Lethargy, decreased activity, or increased sleepiness What to expect in the ER Your blood pressure, temperature, and heart rate will be checked. You may have blood or urine tests done. The main treatment for dehydration is fluids. You may be given these to drink. Or you may get them through a vein in your arm. You also may be treated for diarrhea, vomiting, or a high fever. [employer] arden reviewed this educational content on 11/16/201919996490-8023 [employer]. All rights reserved. This information is not intended as a substitute for professional medical care. Always follow your healthcare professional's instructions. Diabetic Gastroparesis Gastroparesis,ordelayed gastric emptying,is when food moves through the stomach more slowly than normal. In someone with diabetes, its caused by damage to the vagus nerve because of chronic high blood sugar. (Other chronic diseases may also cause gastroparesis.) The vagus nerve helps control how food moves through the digestive system. When this nerve is damaged, the movement of food is slowed down or stopped. Food that stays in the stomach for too long can cause problems. Food can ferment in the stomach, causing bacteria to grow. Undigested food can also harden into masses called bezoars. These can cause nausea and vomiting. In some cases, they may block food from passing from the stomach to the small intestine. Gastroparesis can make it hard to manage blood sugar levels because it is hard to predict when a meal will actually leave the stomach to be digested. It can also cause problems with vitamins and minerals being absorbed into the body as well as maintaining a healthy weight. Symptoms of diabetic gastroparesis are: Nausea Vomiting Feeling full after eating a small amount of food Stomachpain or cramps Heartburn Stomachbloating Weight loss Loss of appetite High or low blood sugar levels There are several different tests and studies that canhelp diagnose gastroparesis. For many people, gastroparesis is a lifelong health problem. Managing it will likely include changesin how you eat. You may be prescribed medicine to help with blood sugar levels,help your symptoms like nausea and vomiting, or act on muscles in the digestive system. Certain medicinesotherwise very effective for diabetes can make gastroparesis worse and should not be taken.In severe cases, surgery to put louis feeding tube may be needed. Or a special device may be implanted to encourage the stomach muscles to contract. Home care These changes may help easeyour symptoms: Take prescribed medicines exactly as directed. Eat a liquid or soft diet if advised. Eat frequent small meals instead of less frequent large meals. Stay away fromfoods that are high in fat(such as whole milk, cheese, and fried foods)or fiber(such as beans, and many fruits and vegetables). These can slow digestion. Always control your blood sugar levels as well as possible as directed by your healthcare provider. Follow-up care Follow up with your healthcare provider as advised. Regular visits may be needed to manage gastroparesis. When to seek medical advice Call your healthcare provider right away if any of these occur: Severe pain in your abdomen Inability to keep down food or liquids Weight loss Other symptoms as directed by your healthcare provider [employer] last reviewed this educational content on 12/16/201719999513-6435 [employer]. All rights reserved. This information is not intended as a substitute for professional medical care. Always follow your healthcare professional's instructions. Vomiting (Adult) Vomiting is a common symptom that may be due to different causes. These include gastroenteritis ("stomach flu"), food poisoning and gastritis. There are other more serious causes of vomiting which may be hard to diagnose early in the illness. Therefore, it is important to watch for the warning signs listed below. The main danger from repeated vomiting is dehydration. This is due to excess loss of water and minerals from the body. When this occurs, your body fluids must be replaced. Home care If symptoms are severe, rest at home for the next 24 hours. Because your symptoms may be from an infection, wash your hands often and well. If soap and waterare not available, use alcohol-based parking lot spotter to keep from spreading the infection to others. Wash your hands for at least 20 seconds. Humming the happy birthday song twice while you wash is an easy way to make sure you've washed for 20 seconds. Wash your hands after using the toilet, before and after preparing food, before eating food, after changing a diaper, cleaning a wound, caring for a sick person, and blowing your nose, coughing, or sneezing. You should also wash your hands after caring for someone who is sick, touching pet food, ortreats, and touching an animal, or animal waste. You may use acetaminophenor NSAID medicines like ibuprofen or naproxen to control fever, unlessanother medicine was prescribed. If you have chronic liver or kidney disease or ever had a stomach ulcer or gastrointestinal bleeding, talk with your doctor before using these medicines. Aspirin shouldnever be used in anyone under 18 years of age who is ill with a fever. It may cause severe liver damage. Don't use NSAID medicines if you are already taking one for another condition (like arthritis) or are on aspirin (such as for heart disease, or after a stroke) Don't use tobacco and or drink alcohol, which may worsen your symptoms. If medicines for vomiting were prescribed, take as directed. Once vomiting stops, then follow these guidelines: During the first 12 to 24 hours follow the diet below: Fruit juices. Apple, grape juice, clear fruit drinks, and electrolyte replacement drinks. Beverages. Soft drinks without caffeine; mineral water (plain or flavored), decaffeinated tea andcoffee. Soups. Clear broth and bouillon Desserts. Plain gelatin, ice pops, and fruit juice bars. As you feel better, you may add 6 to 8 ounces of yogurt per day. During the next 24 hours you may add the following to the above: Hot cereal, plain toast, bread, rolls, crackers Plain noodles, rice, mashed potatoes, chicken noodle or rice soup Unsweetened canned fruit such as applesauce, bananas (avoid pineapple and citrus) Limit caffeine and chocolate. No spices or seasonings except salt. During the next 24 hours: Gradually resume a normal diet, as you feel better and your symptoms lessen. Follow-up care Follow up with your healthcare provider, or as advised. When to seek medical advice Call your healthcare provider right away if any of these occur: Constant right-sided lower belly pain or increasing general belly pain Continued vomiting (unable to keep liquids down) for 24 hours Vomiting blood or coffee grounds Swollen belly Frequent diarrhea (more than 5 times a day); blood (red or black color) or mucus in diarrhea Reduced urine output or extreme thirst Weakness, dizziness or fainting Unusually drowsy or confused Fever of 100.4F (38C) oral or higher, or as directed Yellow color of the eyes or skin [employer] last reviewed this educational content on 09/15/201719991771-4518 [employer]. All rights reserved. This information is not intended as a substitute for professional medical care. Always follow your healthcare professional's instructions. documented in this encounter Medications at Time [...] documented as of this encounter ED Notes Estiven Wilder RN - 08/12/2020 7:41 AM PST Pt tolerating ice chips. Feels ready to discharge. Estiven Wilder RN - 08/12/2020 7:25 AM PST Assumed care of patient. Report received from NICOLE Del Rosario. Pt sleeping without signs of acute distress. Wakes to voice. Reports feeling much better after last round of medication. Provided with ice chips for PO challenge. Discussed patient status with Dr. Ratliff. Pt OK to discharge after completion of IV fluids and if tolerating oral intake. Carin Reardon RN - 08/12/2020 7:13 AM PST Shift hand off given to Estiven RIVERA. Carin Reardon RN - 08/12/2020 6:48 AM PST Pt resting in bed, room dimmed, and girlfriend at bedside. Carin Reardon RN - 08/12/2020 6:34 AM PST MD at bedside. Carin Reardon RN - 08/12/2020 6:30 AM PST Critical lab results received at 0630 from Lab. Lab result: BetaHydroxy greater than 2 Results were read back and confirmed. Dr. Huber was notified of these results. No new orders at this time. Carin Reardon RN - 08/12/2020 5:43 AM PST Pt resting in bed. Retching has stopped. Patient provided warm blankets. All other needs addressed at this time. Girlfriend and call light at bedside. Carin Reardon RN - 08/12/2020 4:57 AM PST MD at bedside. Carin Reardon RN - 08/12/2020 4:46 AM PST IV therapy at bedside. Guicho Beckman RN - 08/12/2020 4:45 AM PST Presented to ED with paleology teacher, who firmly insisted on going back to room with patient despite beingtold what the hospital's visitor policy is currently, with complaints of gastroparesis flare-up. Pt took his medications at home BRICK SORTER without any relief. Denies any fever/chills, cough, or recent travel. Seen here Carin Reardon RN - 08/12/2020 4:39 AM PST Pt has insulin pump BG of 288 and 1.8 units of insulin self administered. Carin Reardon RN - 08/12/2020 4:37 AM PST Pt requests that port be accessed. IV therapy paged. Carin Reardon RN - 08/12/2020 4:36 AM PST Meds BRICK SORTER 1999- 4 IM Zofran, 25 IM phenergan, 50 Benadryl PO, 1 Ativan 0000- 1 Ativan Fernando Huber MD - 08/12/2020 4:32 AM PST Images from the original note were not included. EMERGENCY DEPARTMENT PROVIDER NOTE HISTORY OF PRESENT ILLNESS Chief Complaint: Nausea, vomiting and dehydration Historian : Patient Mode of Arrival : Car HPI : Mauri Levine is a 34 y.o. male with a history of DM1 complicated by diabetic gastroparesis who presents with complaints of acute on chronic nausea and vomiting, with this most recent flare-up beginning 1.5 days ago. Overall this feels similar to prior flare-ups of his gastroparesis. No abdominal pain. No fevers. No hematemesis. No melena or hematochezia. His pump ran out of insulin prior to arrival. His BGL at this time was 288 and he administered 1.8 units sub-Q. Interventions at home prior to arrival: 25 mg phenergan IM, 4 mg Zofran IM, 50 mg Benadryl PO, 1 mg lorazepam @ 20:00 yesterday; 1 mg lorazepam @ 00:00. Accompanied by his significant other, she is a RN at [employer]. PMHx DM1: Diagnosed at age 13. A1c 10.4 on 08/11/2019. Per 05/07/2020 endocrinology note: "he is demonstrating persistent hyperglycemia with significant variability". Prior admissions for DKA, last in 2019. Complicated by diabetic autonomic neuropathy, diabetic gastroparesis (gastric pacemaker installed on , previously on domperidone), diabetic kidney disease. Utilizes Control IQ with tandem pump.[facility]S Helper is Dr. Garcia at . Primary care provider: No primary care provider on file.. Past Medical History Past Medical History: Diagnosis Date Anxiety Diabetes mellitus (HCC) Gastroparesis Hypertension Neuropathy Renal disorder Type 1 diabetes mellitus with autonomic neuropathy (HCC) History reviewed. No pertinent surgical history. Medications No outpatient medications have been marked as taking for the 08/12/20 encounter (Hospital Encounter). Allergies Compazine [prochlorperazine], Nsaids (non-steroidal anti-inflammatory drug), Reglan [metoclopramide hcl], and Silver Social and Family History Social History Tobacco Use Smoking status: Never Smoker Smokeless tobacco: Never Used Substance Use Topics Alcohol use: Never Frequency: Never Former smoker. No alcohol use. Occasional marijuana use. Hasn't smoked in several days. History reviewed. No pertinent family history. REVIEW OF SYSTEMS I have reviewed ED nursing triage, allergy, PMH & PSH documentation. Constitutional : + Poor oral intake. No fever. No chills. HENT : No sore throat. No rhinorrhea. Respiratory : No shortness of breath. No cough. Cardiovascular : No chest pain. GI : + Nausea and vomiting. No hematemesis or coffee-ground emesis. No abdominal pain. No diarrhea. No bright red blood per rectum or melena. : No dysuria or hematuria. Musculoskeletal : No myalgias. Skin : No rash. Neurologic : No headache. No focal weakness. Heme/Lymphatic : No easy bleeding. Allergy/Immunology : No frequent infections. PHYSICAL EXAMINATION ED Triage Vitals [08/12/20 0433] Temp Pulse Resp BP SpO2 SPO2 Pulse Rate Pain Score 36 C (96.8 F) -- 18 (!) 166/121 97 % 121 -- Constitutional : Vital signs reviewed. Moderate pain distress. Lying in bed with his eyes closed butanswering questions appropriately. Head : No cephalohematoma. Normocephalic. Eyes : Sclera are normal. Conjunctiva are normal. ENT : No nasal discharge or bleeding. No oral lesions. Neck : Full ROM. Respiratory : Breath sounds normal. No respiratory distress. Port in right chest wall. Cardiovascular : Tachycardic and regular. Heart sounds normal. Abdomen : Soft, non-tender. No distension. Back : Normal inspection. No CVA tenderness to palpation. Upper extremity : Inspection normal. Normal range of motion. Lower extremity : Inspection normal. Normal range of motion. Skin : Warm and dry. No rashes noted. Heme/Lymphatic : No petechiae. Neurologic : Alert and oriented. Articulate. No focal motor deficits. Symmetric facies. Psychiatric : Affect appropriate. Judgement and insight normal. MEDICAL DECISION MAKING Mauri Levine is a 34 y.o. male with a history of type 1 diabetes and gastroparesis who presents to the emergency department with nausea, vomiting and dehydration. Given his type 1 diabetes, he is at risk for DKA. We will treat the nausea with Zofran. He has a history of adverse events associated withCompazine and Reglan in the past. No diarrhea or blood in the stool to suggest gastroenteritis or bacterial enteritis. No hematemesis or coffee-ground emesis to suggest erosive esophagitis and GI bleeding. Work up will therefore include: * CBC to get a baseline hematocrit (to assess for GI blood loss) and a white blood cell count as a marker for infection * renal profile to look for electrolyte disturbances and dehydration from the diarrhea. This can also look for BUN elevations suggesting upper GI bleeding * LFTs to look for associated liver disease (seen with some parasitic infections) * Serum ketones We will establish an IV. We will hydrate the patient with IV normal saline. We will give IV Zofran for nausea. EMERGENCY DEPARTMENT COURSE White blood cell count elevated at 11.6. No anemia. Platelets normal. Renal profile shows normal electrolytes and no acidosis. The patient has chronic renal insufficiency with a creatinine of 2.49, essentially unchanged from 2.53 one week ago. Blood sugar is elevated at 291. LFTs are normal, arguing against obstructive biliary tract disease and hepatitis. Beta hydroxybutyrate is greater than 2, likely due to starvation ketosis given the normal serum bicarbonate and anion gap. Peripheral IV was established. He was placed on continuous cardiac telemetry and pulse oximetry monitoring and closely observed throughout the ED observation period for signs and symptoms of clinical deterioration. No runs of dysrhythmias were noted on the monitor during his stay. Pulse oximetry remained normal throughout his stay.Patient was hydrated over the course of his stay with 2 L IV normal saline. His heart rate came downfrom 121 to 104. Nausea was treated with Zofran 8 mg IV, lorazepam 1 mg IV and promethazine 50 mg IV. The patient was additionally given diphenhydramine 25 mg IV, lorazepam 1 mg IV for ongoing nausea. ED MEDICATIONS: Medications sodium chloride 0.9 % infusion 1,000 mL (0 mLs Intravenous Stopped 08/12/20 0632) LORazepam (ATIVAN) injection 1 mg (1 mg Intravenous Given 08/12/20 05) ondansetron (ZOFRAN) 4 mg/2 mL injection 8 mg (8 mg Intravenous Given 08/12/20 05) promethazine (PHENERGAN) injection 50 mg (50 mg Intravenous Given 08/12/20 05) diphenhydrAMINE (BENADRYL) injection 25 mg (25 mg Intravenous Given 08/12/20 0639) LORazepam (ATIVAN) injection 1 mg (1 mg Intravenous Given 08/12/20 0640) sodium chloride 0.9 % infusion 1,000 mL (0 mLs Intravenous Stopped 08/12/20 0750) ED Encounter Vitals Date and Time Temp Pulse Resp BP SpO2 SPO2 Pulse Rate ID 08/12/20 0433 36 C (96.8 F) -- 18 166/121 97 % 121 ELP 08/12/20 0740 -- -- 14 149/95 96 % 104 KSW After several hours of observation, the patient's nausea is improved. He will be discharged home into the care of his who is an RN. Follow-up with his primary care provider, Dr. Prasad, if not improving in the next 24-48 hours. I reviewed lab results as well as the diagnosis and plan with the patient. I answered his questions and he verbalized his understanding and satisfaction with the plan for discharge home and follow-up. Kwame Prasad MD [address] [place] [phone] If not improving in 24-48 hours The patient will return to the emergency department for new or worsening symptoms, especially fevers, blood in stools or vomit, abdominal pain. Time-stamped Events None FINAL IMPRESSIONS 1. Non-intractable vomiting with nausea, unspecified vomiting type 2. Gastroparesis due to DM (HCC) 3. CKD stage 3 due to type 1 diabetes mellitus (HCC) 4. Dehydration 5. Hyperglycemia due to type 1 diabetes mellitus (HCC) Disposition I reviewed old records for this patient The patient was closely observed here in the emergency department for signs and symptoms of clinicaldeterioration and has remained stable throughout the emergency department observation period. Condition at the time of discharge is improved. Lab Studies Reviewed Labs Reviewed CBC WITH AUTO DIFFERENTIAL - Abnormal; Notable for the following components: Result Value White Blood Cells 11.62 (*) Platelet Count 358 (*) Neutrophils % (Auto) 88.4 (*) Lymphocytes % 6.4 (*) Monocytes % (Auto) 4.6 (*) Eosinophils % 0.0 (*) Immature Granulocytes Count 0.04 (*) Absolute Neutrophils 10.26 (*) Absolute Lymphocytes 0.74 (*) Absolute Eosinophils 0.00 (*) All other components within normal limits COMPREHENSIVE METABOLIC PANEL - Abnormal; Notable for the following components: Glucose 291 (*) BUN 26.0 (*) Creatinine 2.49 (*) Chloride 92 (*) CO2 33 (*) Calcium 10.6 (*) Total Protein 8.7 (*) Alkaline Phosphatase 117 (*) All other components within normal limits BETA-HYDROXYBUTYRIC ACID - Abnormal; Notable for the following components: Beta Hydroxybutyryric Acid >2.00 (*) All other components within normal limits POCT GLUCOSE - Abnormal; Notable for the following components: Glucose, Fingerstick 288 (*) All other components within normal limits POCT - GLUCOSE Narrative: The following orders were created for panel order POCT - GLUCOSE/FINGERSTICK. Procedure Abnormality Status --------- ------ POCT glucose-Result[[id number]] Abnormal Final result Please view results for these tests on the individual orders. ED Visit Patient roomed in ED 08/12/20 0427 FERNANDO HUBER MD Attending Physician Department of Emergency Medicine [facility] [employer] and Ryley Almeida, Governor of the [facility], havedeclared a State of Public Health Emergency due to the spread of a novel coronavirus and disease COVID-19. Treatment options are limited and include conservative measures and respiratory support if appr opriate. This has led to significant resource scarcity and potential delays in care. Parts of this note have been entered by Abdiel Heath in the role of a scribe. It has been reviewedand edited by Fernando Hubre MD. Fernando Huber MD 08/13/20 1617 documented in this encounter Miscellaneous Notes [facility]-Visit History - [place] Interface Model - 08/12/2020 4:28 AM PST [facility] has no Care Guidelines for this patient. Prescription Review PDMP Report (previous six months). Fill Date Drug Description Qty. Prescriber CS MED --------- ---- -- --- 2020-07-28 LORAZEPAM 1 MG TABLET 10 SABINA GAY 4 0.0 2020-06-17 LORAZEPAM 1 MG TABLET 10 SABINA GAY 4 0.0 12 Month Prescription Summary -Number of CS Rx:3 -Number of CS-II Rx:1 -Total dispensed quantity:32 -Unique Prescribers:2 -Unique Pharmacies:1 -Opioid Rx Count:1 -Long Acting Opioid Rx Count:0 -Benzo Rx Count:2 ED/UCC VISIT TRACKING (3 MO.) 08/12/2020 04:27 Sid LOREDO TYPE: Emergency DIAGNOSES: - Dehydration/nausea/vomiting 08/05/2020 19:56 Sid LOREDO TYPE: Emergency DIAGNOSES: - Emesis - Other specified abnormal findings of blood chemistry - Nausea with vomiting, unspecified - Dehydration - Emesis; Abdominal Pain - Gastroparesis 06/12/2020 18:48 Sid LOREDO TYPE: Emergency DIAGNOSES: - Gastroparesis - NAUSEA,DEHYDRATION - Dehydration - Acute kidney failure, unspecified - Type 1 diabetes mellitus with hyperglycemia - Emesis 05/22/2020 19:09 Sid LOREDO TYPE: Emergency DIAGNOSES: - Generalized abdominal pain - vomiting, dehyration - Emesis - Nausea with vomiting, unspecified - Gastroparesis 05/14/2020 19:54 Sid LOREDO TYPE: Emergency DIAGNOSES: - Acute kidney failure, unspecified - VOMITING, DEHYDRATION - Dehydration - Gastroparesis - Emesis - Nausea with vomiting, unspecified INPATIENT VISIT TRACKING (1 MO.) No inpatient visits to display in this time frame EDeena. VISIT COUNT (12 MO.) 7 [facility] 1 [facility] TOTAL 8 NOTE: Visits indicate total known visits. CARE PROVIDERS KWAME PRASAD [facility] Current PHONE: [phone] CLAUDIA SIEGEL L, Nurse Practitioner: Psychiatric/Mental Health Current WENDY Serrano PHONE: Unknown [facility] Primary Care Current PHONE: Unknown [facility] Chrissy sAtorga PHONE: [phone] DENTAL ONLY Primary Care Current PHONE: [phone] [email or web address] Security Events No recent Security Events currently on file documented in this encounter Plan of Treatment Not on filedocumented as of this encounter Procedures Procedure Name Priority Date/Time Associated Comments Diagnosis BETA-HYDROXYBUTYRIC STAT Add-On 08/12/2020 5:20 Resul ts for this ACID AM PST procedure are i n the results section. CBC WITH AUTO STAT 08/12/2020 5:20 Results for this DIFFERENTIAL AM PST procedure are i n the results section. COMPREHENSIVE STAT 08/12/2020 5:20 Results for this METABOLIC PANEL AM PST procedure ar e in the results section. POCT - GLUCOSE STAT 08/12/2020 4:39 Results fo r this AM PST procedure are i n the results section. POCT GLUCOSE STAT 08/12/2020 4:39 Results for this AM PST procedure are i n the results section. documented in this encounter Results (ABNORMAL) Beta-Hydroxybutyric Acid (08/12/2020 5:20 AM PST) Patholo gist Method Time Signature Beta >2.00 <0.30 08/12/2020 [facility] Hydroxybutyryric (HH) mmol/L 6:28 AM PST Acid Specimen Anatomical Collection Method / Collection Time Recei pierre Time (Source) Location / Volume Laterality Blood specimen Venipuncture / 08/12/2020 5:20 08/12/19 21 5:35 (specimen) Unknown AM PST AM PST Fernando Huber MD LAB BLOOD ORDERABLES Performing Organization Address City/State/ZIP Code Phon e Number [facility] [address] [place] [address] (ABNORMAL) Comprehensive metabolic panel (08/12/2020 5:20 AM PST) athologist Signature Glucose 291 (H) 74 - 109 08/12/2020 [facility] mg/dL 6:19 AM PST Comment: Glucose Reference Range : ADA 2020 Diagnostic Categories for nonpr egnant adults: Pre-Diabetes: Fasting glucose of 100-125 mg/dL Diabetes: Fasting glucose of 126 mg/dL or greater Random glucose of 200 mg/dL or greater i n patients with classic symptoms of hyperglycemia or hyperglycemic crisis. BUN 26.0 (H) 7.0 - 25.0 mg/dL 08/12/2020 6:19 AM [facility] Creatinine 2.49 (H) 0.70 - 1.30 mg/dL 08/12/2020 6:19 AM [facility] eGFR 30 m/m/1.73 08/12/2020 6:19 AM [facility] Comment: GFR < 60: Chronic kidney disease if foun d over a 3 month period. Sodium 141 136 - 145 mmol/L 08/12/2020 6:19 AM [facility] Potassium 4.1 3.5 - 5.1 mmol/L 08/12/2020 6:19 AM [facility] Chloride 92 (L) 98 - 107 mmol/L 08/12/2020 6:19 AM [facility] CO2 33 (H) 21 - 31 mmol/L 08/12/2020 6:19 AM [facility] Anion Gap 16 5 - 16 mmol/L 08/12/2020 6:19 AM [facility] Calcium 10.6 (H) 8.6 - 10.3 mg/dL 08/12/2020 6:19 AM [facility] Total Protein 8.7 (H) 6.0 - 8.3 G/DL 08/12/2020 6:19 AM [facility] Albumin 4.5 3.5 - 5.7 G/DL 08/12/2020 6:19 AM [facility] Bilirubin Total 0.4 0.3 - 1.0 mg/dL 08/12/2020 6:19 AM [facility] Alkaline Phosphatase 117 (H) 34 - 104 U/L 08/12/2020 6:19 AM [facility] ALT (SGPT) 12 7 - 52 U/L 08/12/2020 6:19 AM [facility] AST (SGOT) 19 13 - 39 U/L 08/12/2020 6:19 AM [facility] Specimen Anatomical Collection Method / Collection Time Recei pierre Time (Source) Location / Volume Laterality Blood specimen Venipuncture / 08/12/2020 5:20 08/12/19 21 5:35 (specimen) Unknown AM PST AM PST Fernando Huber MD LAB BLOOD ORDERABLES Performing Organization Address City/State/ZIP Code Phon e Number [facility] [address] [place] [address] (ABNORMAL) CBC With Auto Differential (08/12/2020 5:20 AM PST) [facility] Method Time Signature White Blood Cells 11.62 (H) 4.23 - 08/12/2020 [facility] 9.07 5:56 AM PST 10E3/uL RBC 4.82 4.20 - 08/12/2020 [facility] 5.70 5:56 AM PST 10E6/uL Hemoglobin 13.7 13.7 - 08/12/2020 [facility] 17.5 g/dL 5:56 AM PST Hematocrit 42.0 40.1 - 08/12/2020 [facility] 51.0 % 5:56 AM PST MCV 87.1 79.0 - 08/12/2020 [facility] 92.2 fL 5:56 AM PST MCH 28.4 25.7 - 08/12/2020 [facility] 32.2 pg 5:56 AM PST MCHC 32.6 32.3 - 08/12/2020 [facility] 36.5 g/dL 5:56 AM PST RDW-SD 42.5 35.1 - 08/12/2020 [facility] 43.9 fl 5:56 AM PST RDW-CV 13.4 11.6 - 08/12/2020 [facility] 14.4 % 5:56 AM PST Platelet Count 358 (H) 163 - 337 08/12/2020 [facility] 10E3/uL 5:56 AM PST MPV 11.2 9.4 - 08/12/2020 [facility] 12.4 fL 5:56 AM PST nRBC(auto)% 0.0 0 - 0.2 08/12/2020 [facility] /100WBC 5:56 AM PST nRBC# 0.00 0 - 0.012 08/12/2020 [facility] 10E3/uL 5:56 AM PST Neutrophils % 88.4 (H) 34.0 - 08/12/2020 [facility] (Auto) 67.9 % 5:56 AM PST Lymphocytes % 6.4 (L) 21.8 - 08/12/2020 [facility] 53.0 % 5:56 AM PST Monocytes % 4.6 (L) 5.3 - 08/12/2020 [facility] (Auto) 12.2 % 5:56 AM PST Eosinophils % 0.0 (L) 0.8 - 7.0 08/12/2020 [facility] % 5:56 AM PST Basophils % 0.3 0.2 - 1.2 08/12/2020 [facility] % 5:56 AM PST Immature 0.3 0.0 - 0.4 08/12/2020 [facility] Granulocytes % % 5:56 AM PST (IG%) Immature 0.04 (H) 0.00 - 08/12/2020 [facility] Granulocytes 0.03 5:56 AM PST Count 10E3/uL Absolute 10.26 (H) 1.78 - 08/12/2020 [facility] Neutrophils 5.38 5:56 AM PST 10E3/uL Absolute 0.74 (L) 1.32 - 08/12/2020 [facility] Lymphocytes 3.57 5:56 AM PST 10E3/uL Absolute 0.54 0.30 - 08/12/2020 [facility] Monocytes 0.82 5:56 AM PST 10E3/uL Absolute 0.00 (L) 0.04 - 08/12/2020 [facility] Eosinophils 0.36 5:56 AM PST 10E3/uL Absolute 0.04 0.01 - 08/12/2020 [facility] Basophils 0.08 5:56 AM PST 10E3/uL Specimen Anatomical Collection Method Collection Time Receive d Time (Source) Location / / Volume Laterality Blood specimen Line / Unknown 08/12/2020 5:20 AM 08/12 5:35 (specimen) PST AM PST Fernando Huber MD LAB BLOOD ORDERABLES Performing Organization Address City/State/ZIP Code Phon e Number [facility] [address] [place] [address] (ABNORMAL) POCT glucose-Result (08/12/2020 4:39 AM PST) Analysis Performed At Patho logist Time Signature Glucose, 288 (H) 65 - 99 08/12/2020 [facility] Fingerstick mg/dL 4:41 AM PST Comment: Cleaned Meter Specimen Anatomical Collection Method Collection Time Receive d Time (Source) Location / / Volume Laterality Blood specimen 08/12/2020 4:39 AM 021 4:41 (specimen) PST AM PST (Blood) Fernando Huber MD POCT ORDERABLES - DEVICE Performing Organization Address City/State/ZIP Code Phon e Number [facility] [address] [place] [address] [phone] documented in this encounter Visit Diagnoses Diagnosis Non-intractable vomiting with nausea, un specified vomiting type - Primary Gastroparesis due to DM (HCC) CKD stage 3 due to type 1 diabetes melli tus (HCC) Dehydration Hyperglycemia due to type 1 diabetes beth litus (HCC) documented in this encounter Administered Medications Inactive Administered Medications - up to 3 most recent administrations Medication Order MAR Action Action Date Dose Rate Site diphenhydrAMINE (BENADRYL) Given 08/12/2020 6:39 AM PST 25 mg injection 25 mg 25 mg, Intravenous, Once On Tue08/12/20 at 0635, For 1 dose heparin lock flush (porcine) (100 unit/mL) Given 08/12 7:50 AM PST 500 Units flush 500 Units 500 Units (5 mL), Intra-Catheter, As needed, Line Care, Only use prior to de-access Starting on Tue08/12/20 at 0745, Only use prior to de-access. -For Port-A-Cath flush HYDROmorphone (DILAUDID) injection 0.5-1 mg 0.5-1 mg, Intravenous, As needed, Modera te Pain (4-6), Severe Pain (7-10) Starting on Tue08/12/20 at 0441, For 3 doses LORazepam (ATIVAN) injection 1 mg Given 08/12/2020 5:11 AM PST 1 mg 1 mg, Intravenous, Once On Tue08/12/20 at 0444, For 1 dose LORazepam (ATIVAN) injection 1 mg Given 08/12/2020 6:40 AM PST 1 mg 1 mg, Intravenous, Once On Tue08/12/20 at 0635, For 1 dose ondansetron (ZOFRAN) 4 mg/2 mL injection 8 mg Given 08/12/2020 5:11 AM PST 8 mg 8 mg, Intravenous, Once On Tue08/12/20 at 0454, For 1 dose, If ordered IV route: may give undiluted by slow IV push over 1/2 to 2 minutes promethazine (PHENERGAN) injection 50 mg Given 08/12/2020 5:11 AM PST 50 mg 50 mg, Intravenous, Once On Tue08/12/20 at 0454, For 1 dose sodium chloride 0.9 % flush 10 mL 10 mL, Intra-Catheter, As needed, Line C are Starting on Tue08/12/20 at 0745, After IV medications . -For Port-A-Cath flush sodium chloride 0.9 % flush 10 mL 10 mL, Intra-Catheter, Every 8 hours First dose on Tue08/12/20 at 0800, -For Port-A-Cath f lush sodium chloride 0.9 % flush 20 mL 20 mL, Intra-Catheter, As needed, Line Care, After blo od sample AND/OR blood products Starting on Tue08/12/20 at 0745, -For Port-A-Cath flu sh sodium chloride 0.9 % infusion New Bag 08/12/2020 5:38 AM PST 1,000 mLs 1000 mL/hr 1,000 mL at 1,000 mL/hr, Intravenous, Once, On Tue08/12/20 at 0429, For 1 dose, 1000mL sodium chloride 0.9 % infusion New Bag 08/12/2020 6:39 AM PST 1,000 mLs 1000 mL/hr 1,000 mL at 1,000 mL/hr, Intravenous, Once, On Tue08/12/20 at 0635, For 1 dose documented in this encounter Active and Recently Administered Medications Times are shown in PST. Scheduled Medication Order 08/10/2020 08/11/2020 08/12/2020 diphenhydrAMINE (BENADRYL) injection 25 mg (COMPLETED) 0639 (Given - Provider: Carin Reardon RN) 25 mg, Intravenous, Once Tue08/12/20 at 0635, For 1 dose LORazepam (ATIVAN) injection 1 mg (COMPLETED) 0511 (Given - Provider: Carin Reardon RN) 1 mg, Intravenous, Once 08/12/20 at 0444, For 1 dose LORazepam (ATIVAN) injection 1 mg (COMPLETED) 639 (Given - Provider: Carin Reardon RN) 1 mg, Intravenous, Once 08/12/20 at 0635, For 1 dose ondansetron (ZOFRAN) 4 mg/2 mL injection 8 mg (COMPLETED) 510 (Given - Provider: Carin Reardon RN) 8 mg, Intravenous, Once 08/12/20 at 0454, For 1 dose, If ordered IV route: may give undiluted by slow IV push over 1/2 to 2 minutes promethazine (PHENERGAN) injection 50 mg (COMPLETED) 510 (Given - Provider: Carin Reardon RN) 50 mg, Intravenous, Once 08/12/20 at 0454, For 1 dose sodium chloride 0.9 % flush 10 mL(Linked Group 1) 0800 (Canceled Entry - Provider: Automatic Transfer Provider - Comment: Automatically canceled at discontinue of medication order) 10 mL, Intra-Catheter, Every 8 hours First dose on Tue08/12/20 at 0800, -For Port-A-Cath flush sodium chloride 0.9 % infusion 1,000 mL (COMPLETED) 05 (New Bag - Provider: Carin Reardon RN)0632 (Stopped - Provider: Carin Reardon RN) at 1,000 mL/hr, Intravenous, Once, Tue08/12/20 at 0429, For 1 do se, 1000mL sodium chloride 0.9 % infusion 1,000 mL (COMPLETED) 0639 (New Bag - Provider: Carin Raerdon RN)0750 (Stopped - Provider: Clari Stephens, NICOLE) at 1,000 mL/hr, Intravenous, Once, On Tue08/12/20 at 0635, For 1 dose PRN Medication Order 08/10/2020 08/11/2020 08/12/2020 heparin lock flush (porcine) (100 unit/mL) flush 500 Units(Linke d Group 1) 0750 (Given - Provider: Clari Stephens RN) 500 Units (5 mL), Intra-Catheter, As nee ded, Line Care, Only use prior to de- access Starting Tue08/12/20 at 0745, Only use prior to de-access. -For Port-A-Cath flush HYDROmorphone (DILAUDID) injection 0.5-1 mg 0.5-1 mg, Intravenous, As needed, Modera te Pain (4-6), Severe Pain (7-10) Starting Tue08/12/20 at 0441, For 3 doses sodium chloride 0.9 % flush 10 mL(Linked Group 1) 10 mL, Intra-Catheter, As needed, Line C are Starting e 08/12/20 at 0745, After IV medications. -For Port-A-Cath flush sodium chloride 0.9 % flush 20 mL(Linked Group 1) 20 mL, Intra-Catheter, As needed, Line C are, After blood sample AND/OR blood products Starting Tue08/12/20 at 0745, -For Port-A-Cath flush Linked Groups Order Group 1: sodium chloride 0.9 % flush 10 mLJump to med 10 mL, Intra-Catheter, As needed, Line C are Starting e 08/12/20 at 0745
After IV medications. -For Port-A-Cath flush
And sodium chloride 0.9 % flush 10 mLJump to med 10 mL, Intra-Catheter, Every 8 hours F irst dose on Tue08/12/20 at 0800
-For Port-A-Cath flush
And heparin lock flush (porcine) (100 unit/mL) flush 500 UnitsJump to med 500 Units (5 mL), Intra-Catheter, As nee ded, Line Care, Only use prior to de- access Starting e 08/12/20 at 0745
Only use prior to de-access. -For Port-A-Cath flush
And sodium chloride 0.9 % flush 20 mLJump to med 20 mL, Intra-Catheter, As needed, Line C are, After blood sample AND/OR blood products Starting Tue08/12/20 at 0745
-For Port-A-Cath flush
documented in this encounter
--- OUTSIDE RECORDS SUMMARY | 2022-07-24 16:40 | External Medical Summary | Summary of Care ---
:1985 Author Organization [facility] ic Address [address] [place] [address]- Care Team Providers Name Role Phone Means Flynn PIERCE Primary Care Physician Encounter FNBR [id number] Date(s): 09/04/19 - 09/04/19 [facility] [address] [place] [address]- [place] Discharge Disposition: *Home () Attending Physician: OPH, Ophthalmology Services Referring Physician: Rosanne Burnham MD Problem List [...] Unknown Active NSAIDs Not to take per Education Spec Unknown Act dayan Medications captopril 12.5 mg oral tablet 6.25 mg = 0.5 tab(s), PO, BID, # 30 tab(s), # Refill (s): 0 # Total Refill (s): 0, may take 1 prn for htn Start Date: 05/15/19 Status: Orderedcarvedilol See Instructions, PO Start Date: 08/30/19 Status: OrderedCIALIS 5 mg [...] injectable solution See Instructions, # 20 mL, via insulin pump - patient uses between 50-55u per day. Start Date: 08/30/19 Status: OrderedPHENERGAN 12.5 mg rectal suppository 12.5 [...]
--- OUTSIDE RECORDS SUMMARY | 2022-07-24 16:40 | External Medical Summary | Summary of Care ---
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
--- OUTSIDE RECORDS SUMMARY | 2022-07-24 16:40 | External Medical Summary | Summary of Care ---
:1985 Author Organization [facility] Address [address] [place] [address]- Care Team Providers Name Role Phone Means Flynn PIERCE Primary Care Physician Encounter FNBR [id number] Date(s): 06/09/20 - 06/09/20 [place] [id number] [place] [address]- [facility] Discharge Disposition: *Home () Attending Physician: Angela Wilson MD Referring Physician: Angela Wilson MD Problem List Condition [...] Unknown Active NSAIDs Not to take per Genetic Coordinator Unknown Act dayan Medications carvedilol 6.25 mg [...] Most recent to oldest [Reference Range]: 1 2 Neutrophils, Absolute Count [2.0-8.5 3.3 x10(9)/L x10(9)/L] (06/09/20 11:23 AM) Lymphocytes, Absolute Count [1.0-4.5 1.4 x10(9)/L x10(9)/L] (06/09/20 11:23 AM) Monocytes, Absolute Count [0.1-0.9 0.4 x10(9)/L x10(9)/L] (06/09/20 11:23 AM) Eosinophils, Absolute Count [0.0-0.5 0.2 x10(9)/L x10(9)/L] (06/09/20 11:23 AM) Basophils, Absolute Count [0.0-0.2 0.1 x10(9)/L x10(9)/L] (06/09/20 11:23 AM) Parathyroid Hormone-Intact [11.0-77.0 28.4 pg/mL pg/mL] (06/09/20 11:23 AM) Vitamin D 25-OH, Total [30.0-60.0 ng/mL] 20.7 ng/mL *LOW* (06/09/20 11:23 AM) eGFR (-Pakistani) [60-300 43 mL/min/1.73m mL/min/1.73m] *LOW* (06/09/20 11: AM) eGFR (NonAfrican-Pakistani) [60-300 37 mL/min/1.73m mL/min/1.73m] *LOW* (06/09/20 11:23 AM) Protein/Creatinine Ratio, Random [<=0.20] 1.49 *HI* (06/09/20 11:43 AM) Anion Gap, Blood [6-14 mmol/L] 9 mmol/L (06/09/20 11:23 AM) Basophils, Percent 1.2 % *NA* (06/09/20 11: AM) Calcium Level [8.7-10.4 mg/dL] 8.9 mg/dL (06/09/20 11: AM) Carbon Dioxide Content (CO2) [22-31 mmol/L] 25 mmol/L (06/09/20 11:23 AM) Chloride Level [100-112 mmol/L] 103 mmol/L (06/09/20 11:23 AM) Creatinine, Random Urine 86 mg/dL 86 mg/dL *NA* *NA* (06/09/20 11:43 AM) (06/09/20 11:43 AM) Creatinine, Serum [0.72-1.25 mg/dL] 2.25 mg/dL *HI* (06/09/20: AM) Eosinophils, Percent 2.9 % *NA* (06/09/20: AM) Glucose Random [75-139 mg/dL] 155 mg/dL *HI* (06/09/20: AM) Neutrophils, Percent 61.6 % *NA* (06/09/20: AM) Hematocrit [39-50 %] 33 % *LOW* (06/09/20 AM) Lymphocytes, Percent 26.2 % *NA* (06/09/20 AM) Mean Corpuscular HGB [28-34 pg] 30 pg (06/09/20: AM) Mean Corpuscular HGB Concentrn [33-36 g/dL] 34 g/dL (06/09/20 AM) Mean Corpuscular Volume [80-100 fL] 88 fL (06/09/20 AM) Microalbumin, Random Urine 888.0 mg/L *NA* (06/09/20 AM) Monocytes, Percent 8.1 % *NA* (06/09/20: AM) Platelet Count [150-400 x10(9)/L] 227 x10(9)/L (06/09/20 AM) Potassium Level [3.5-5.3 mmol/L] 4.3 mmol/L (06/09/20 AM) Protein (Total), Random Urine [1-14 mg/dL] 128 mg/dL *HI* (06/09/2043 AM) RBC Distribution Width [12.0-16.0 %] 14.1 % (06/09/20 AM) Red Blood Cell Count [4.27-5.57 x10(12)/L] 3.70 x10(12)/L *LOW* (06/09/20 AM) Sodium Level [136-146 mmol/L] 137 mmol/L (06/09/20 AM) Total Calcium [8.7-10.4 mg/dL] 8.8 mg/dL (06/09/20: AM) Urea Nitrogen [9-25 mg/dL] 36 mg/dL *HI* (11/23/20 11:23 AM) White Blood Cell Count [3.5-11.0 x10(9)/L] 5.3 x10(9)/L (06/09/20 11:23 AM) Microalbumin/Creatinine Ratio, Random [<=29 1033 mg/gm mg/gm] *HI* (06/09/20 11:43 AM) Hemoglobin [13.4-17.0 g/dL] 10.9 g/dL *LOW* (06/09/20 11:23 AM) Immunizations Given and Recorded Vaccine Date Status Refusal Reason influenza virus vaccine, inactivated 03/18/19 Recorded
--- OUTSIDE RECORDS SUMMARY | 2022-07-24 16:40 | External Medical Summary | Summary of Care ---
:1985 Author Organization [facility] ic Address [address] [place] [address]- Care Team Providers Name Role Phone Shanice PIERCE, Quinten Velazquez Primary Care Physician Encounter FNBR [id number] Date(s): 10/09/20 - 10/09/20 [facility] [address] [place], [place] [address] Encounter Diagnosis HTN (hypertension) (Discharge Diagnosis) - 10/09/20 Discharge Disposition: *Home (01) Attending Physician: Angela Wilson MD Problem List [...] Unknown Active NSAIDs Not to take per Lockstitch Cup Setter Unknown Act dayan Medications carvedilol 6.25 mg [...]
--- OUTSIDE RECORDS SUMMARY | 2022-07-24 16:40 | External Medical Summary | Summary of Care ---
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
--- OUTSIDE RECORDS SUMMARY | 2022-07-24 16:40 | External Medical Summary | Summary of Care ---
:1985 Author Organization [facility] ic Address [address] [place] [address]- Care Team Providers Name Role Phone Shanice PIERCE, Quinten Velazquez Primary Care Physician Encounter FNBR [id number] Date(s): 11/20/20 - 11/27/20 [facility] [address] Discharge Disposition: *Home (01) Attending Physician: Unassigned, Problem List Condition Effective Dates Status Health [...] Unknown Active NSAIDs Not to take per Service Observer Chief Unknown Act dayan Medications carvedilol 6.25 mg [...]
--- OUTSIDE RECORDS SUMMARY | 2022-07-24 16:40 | External Medical Summary | Summary of Care ---
:1985 Author Organization [facility] ic Address [address] [place] [address]- Care Team Providers Name Role Phone Means Flynn PIERCE Primary Care Physician Encounter FNBR [id number] Date(s): 05/29/19 - 05/29/19 [facility] [address] [place] [address]- [place] Attending Physician: Radiology, Diagnostic Referring [...] Unknown Active NSAIDs Not to take per Rubber Goods Repairer Unknown Act dayan Medications captopril 12.5 mg [...]
--- OUTSIDE RECORDS SUMMARY | 2022-07-24 16:40 | External Medical Summary | Summary of Care ---
:1985 Author Organization [facility] Address [address] [place] [address]- Care Team Providers Name Role Phone Means Flynn PIERCE Primary Care Physician Encounter FNBR [id number] Date(s): 01/30/20 - 01/31/20 [facility] [address] [place] [address]- [place] Encounter Diagnosis Gastroparesis (Discharge Diagnosis) - 01/31/20 Discharge Disposition: *Home () Attending Physician: Elvia Tobar MD Referring Physician: Claritza Mojica MD Vital Signs Most recent to oldest [Reference Range]: 1 Height (in) 66.93 inch(es) (01/30/20 5:46 AM) Blood Pressure [90-138/60-88 mmHg] 132/69 mmHg (01/31/20 8:07 PM) Peripheral Pulse Rate [50-110 bpm] 74 bpm (01/31/20 8:53 AM) Problem List Condition Effective Dates Status [...] Unknown Active NSAIDs Not to take per Supervisor Prop Making Unknown Act dayan Medications acetaminophen 325 mg oral tablet 650 mg = 2 tab(s), PO, Q6 Hours, PRN: as needed for pain, # 100 tab(s), 02/07/20 Start Date: 01/31/20 Stop Date: 02/07/20 Status: Orderedcarvedilol 3.125 mg, tab, PO, Start: 01/31/20 9:00:00 PDT Start Date: 01/31/20 Stop Date: 01/31/20 Status: Completedcarvedilol 3.125 mg, BID Start Date: 08/30/19 Status: [...] 50-55u per day. Start Date: 09/29/19 Status: OrderedoxyCODONE 5 mg oral tablet 5 mg = 1 tab(s), PO, Q6 Hours, PRN: for Pain, # 12 tab(s), # Refill (s): 0 # Total Refill (s): 0, 02/07/20 Start Date: 01/31/20 Stop Date: 02/07/20 Status: OrderedPHENERGAN 12.5 mg rectal suppository 12.5 mg = 1 supp(s), RECTAL, Q6 Hours, PRN: as needed for nausea/vomiting, # 12 supp(s), # Refill (s): 0 # Total Refill (s): 0 Start Date: 06/11/19 Status: Orderedpolyethylene glycol 3350 oral powder for reconstitution 17 g, PO, Daily, # 255 g, dissolve in water before taking, use while taking oxycodone to avoid constipation, 02/07/20 Start Date: 01/31/20 Stop Date: 02/07/20 Status: Orderedpromethazine 25 mg/mL injectable solution 12.5 [...] Range]: 1 Neutrophils, Absolute Count [2.0-8.5 x10(9)/L] 13.8 x1 0(9)/L *HI* (01/31/20 6:31 AM) Lymphocytes, Absolute Count [1.0-4.5 x10(9)/L] 1.1 x10 (9)/L (01/31/20 6:31 AM) Monocytes, Absolute Count [0.1-0.9 x10(9)/L] 1.1 x10(9 )/L *HI* (01/31/20 6:31 AM) Eosinophils, Absolute Count [0.0-0.5 x10(9)/L] 0.0 x10 (9)/L (01/31/20 6:31 AM) Basophils, Absolute Count [0.0-0.2 x10(9)/L] 0.0 x10(9 )/L (01/31/20 6:31 AM) Flow, VBG unk *NA* (01/31/20 2:42 AM) FIO2, VBG unk *NA* (01/31/20 2:42 AM) Glucose (Manual Entry) 179 (01/30/20 6:10 AM) Beta-Hydroxybutyrate [<=0.3 mmol/L] <0.4 mmol/L (01/31/20 9:56 AM) Critical Call Documentation Crit Call 1 *CRIT* (01/31/20 1:06 AM) eGFR (-Cape Verdean) [60-300 mL/min/1.73m] 36 mL/ min/1.73m *LOW* (01/31/20 6:30 PM) Transitional Epithelial Cells 1+ (01/31/20 4:57 PM) eGFR (NonAfrican-[place] Verdean) [60-300 mL/min/1.73m] 31 mL/min/1.73m *LOW* (01/31/20 6:30 PM) Epithelial Cells 1+ (01/31/20 4:57 PM) UA WBC Auto 1+ *ABN* (01/31/20 4:57 PM) Anion Gap, Blood [6-14 mmol/L] 12 mmol/L (01/31/20 6:30 PM) Base Excess, Venous [-2.0-2.0 mmol/L] 0.1 mmol/L (01/31/20 2:42 AM) Basophils, Percent 0.2 % *NA* (01/31/20 6:31 AM) Bicarbonate, Venous [21.0-31.0 mmol/L] 24.4 mmol/L (01/31/20 2:42 AM) Blood, Urine [negative] TRACE *ABN* (01/31/20 4:57 PM) Calcium Level [8.7-10.4 mg/dL] 8.3 mg/dL *LOW* (01/31/20 6:30 PM) Carbon Dioxide Content (CO2) [22-31 mmol/L] 20 mmol/L *LOW* (01/31/20 6:30 PM) Chloride Level [100-112 mmol/L] 101 mmol/L (01/31/20 6:30 PM) Creatinine, Serum [0.72-1.25 mg/dL] 2.60 mg/dL *HI* (01/31/20 6:30 PM) Eosinophils, Percent 0.0 % *NA* (01/31/20 6:31 AM) Glucose Random [75-139 mg/dL] 216 mg/dL *HI* (01/31/20 6:30 PM) Glucose, Qualitative Urine [negative] negative *NA* (01/31/20 4:57 PM) Neutrophils, Percent 86.2 % *NA* (01/31/20 6:31 AM) Hematocrit [39-50 %] 31 % *LOW* (01/31/20 9:39 AM) Ketones, Urine [negative] negative *NA* (01/31/20 4:57 PM) Lactic Acid, Whole Blood [<=1.6 mmol/L] 1.2 mmol/L (01/31/20 2:42 AM) Lymphocytes, Percent 6.6 % *NA* (01/31/20 6:31 AM) Magnesium Level [1.8-2.8 mg/dL] 2.3 mg/dL (01/31/20 6:25 AM) Mean Corpuscular HGB [28-34 pg] 30 pg (01/31/20 9:39 AM) Mean Corpuscular HGB Concentrn [33-36 g/dL] 33 g/dL (01/31/20 9:39 AM) Mean Corpuscular Volume [80-100 fL] 89 fL (01/31/20 9:39 AM) Monocytes, Percent 7.0 % *NA* (01/31/20 6:31 AM) Oxygen Added, VBG unk *NA* (01/31/20 2:42 AM) Oxygen Saturation - Venous [65.0-80.0 %] 88.7 % *HI* (01/31/20 2:42 AM) pCO2, Venous [35-50 mmHg] 40 mmHg (01/31/20 2:42 AM) pH Blood, Venous [7.32-7.44] 7.40 (01/31/20 2:42 AM) pH, Urine [5.0-8.0] 5.5 *NA* (01/31/20 4:57 PM) Phosphorus Level [2.3-4.7 mg/dL] 3.6 mg/dL (01/31/20 6:25 AM) Platelet Count [150-400 x10(9)/L] 230 x10(9)/L (01/31/20 9:39 AM) pO2, Venous [30-45 mmHg] 55 mmHg *HI* (01/31/20 2:42 AM) Potassium Level [3.5-5.3 mmol/L] 4.6 mmol/L (01/31/20 6:30 PM) Protein, Urine [negative] 1+ *ABN* (01/31/20 4:57 PM) RBC Distribution Width [12.0-16.0 %] 13.7 % (01/31/20 9:39 AM) Red Blood Cell Count [4.27-5.57 x10(12)/L] 3.49 x10(12 )/L *LOW* (01/31/20 9:39 AM) Sodium Level [136-146 mmol/L] 133 mmol/L *LOW* (01/31/20 6:30 PM) Specific [place], Urine [1.005-1.030] 1.010 (01/31/20 4:57 PM) System, VBG unk *NA* (01/31/20 2:42 AM) Temperature-VBG unk *NA* (01/31/20 2:42 AM) Troponin I [<=0.032 ng/mL] 0.035 ng/mL *HI* (01/31/20 6:25 AM) U Sediment See Microscopy (01/31/20 4:57 PM) Urea Nitrogen [9-25 mg/dL] 38 mg/dL *HI* (01/31/20 6:30 PM) Urine Leukocyte Esterase [negative] 1+ *ABN* (01/31/20 4:57 PM) Urine Nitrite [negative] negative *NA* (01/31/20 4:57 PM) White Blood Cell Count [3.5-11.0 x10(9)/L] 15.5 x10(9) /L *HI* (01/31/20 9:39 AM) Hemoglobin [13.4-17.0 g/dL] 10.3 g/dL *LOW* (01/31/20 9:39 AM) Point of Care Glucose [75-139 mg/dL] 184 mg/dL 2 *HI* (01/31/20 5:36 PM) 1Result Comment: Critical result: K & Glu Called to: Dr Marquez Readback? y Date/time reported: 01/31/2020 01:55:25 PDT Tech: [email or web address] Comment: Performed At:[address] [facility], [place], [address] Immunizations Given and Recorded Vaccine Date Status Refusal Reason influenza virus vaccine, inactivated 03/18/19 Recorded
--- OUTSIDE RECORDS SUMMARY | 2022-07-24 16:40 | External Medical Summary | Clinical Summary ---
:1985 Author Organization [facility] nter Address [address] [place] [address] Care Team Providers Name Role Phone Quinten Prasad MD Primary Care Provider Allergies Active Allergy Reactions Severity Noted Date Comments Prochlorperazine Other (See 08/10/2019 "Neurolepti c Comments) Malignant Syndr ome, per SO" Nsaids (Non-Steroidal Other (See 05/14/2020 Anti-Inflammatory Drug) Comments) Metoclopramide Hcl Other (See 08/10/2019 "Tardive Diskinesia Comments) per SO" Silver Rash Low 05/14/2020 Medications Medication Sig Dispensed Refills Start Date End Date Status gabapentin Take 600 mg by 0 Acti ve (NEURONTIN) 300 MG mouth 3 (three) capsule times daily multivitamin Take 1 tablet by 0 Active (MULTIVITAMIN) tablet mouth nightly fluvoxaMINE (LUVOX) Take 100 mg by 0 Active 50 MG tablet mouth nightly atorvastatin Take 40 mg by mouth 0 Active (LIPITOR) 40 MG nightly tablet tadalafil (CIALIS) 10 Take 5 mg by mouth 0 Active MG tablet nightly LORazepam (ATIVAN) Take 0.5 mg by 0 Active 0.5 MG mouth 3 (three) tabletIndications: times daily as panic attack needed for Anxiety Indications: panic attack melatonin 10 mg Tab Take by mouth 0 Active nightly as needed senna (SENOKOT) 8.6 Take 8.6 mg by 0 Active mg tablet mouth nightly as needed for Constipation UNABLE TO FIND 50 mg by Nasal 0 Active route 3 (three) times daily as needed Ketamine 50 mg/ml, 1-2 sprays into each nostril TID PRN nausea and vomitting insulin lispro Inject into the skin as needed 12am-2am 0 Active (INSULIN PUMP, Basal 1.2, correct factor 1:45, carb ratio 1:13, target 120 PATIENT'S OWN,) 2am-7am Basal 0.7, correct factor 1:45, carb ratio 1:13, target 140 7am-12am Basal 1.2, correct factor 1:45, carb ratio 1:13, target 120 carvediloL (COREG) Take 1 tablet 60 tablet 0 08/11/2019 Active 3.125 MG tablet (3.125 mg total) by mouth 2 (two) times daily with meals cloNIDine apply 1 patch 0 01/14/2020 Activ e (CATAPRES-TTS) 0.2 topically every mg/24 hr week furosemide (LASIX) 20 take 1 tablet by 0 11/30/2019 Active MG tablet mouth once daily if needed for EDEMA/HYPERTENSIO.. . (REFER TO PRESCRIPTION NOTES). lisinopriL Take 5 mg by mouth 0 11/30/2019 Active (PRINIVIL,ZESTRIL) 5 MG tablet omeprazole (PRILOSEC) take 1 capsule by 0 03/25/2020 Active 20 MG capsule mouth twice a day BEFORE BREAKFAST AND DINNER FOR 90 DAYS ondansetron dissolve 1 tablet 0 03/28/2020 Active (ZOFRAN-ODT) 4 MG ON TONGUE every 6 disintegrating tablet hours if needed for nausea promethazine Inject 12.5 mg into 0 10/04/2019 Active (PHENERGAN) 25 mg/mL the muscle every 6 injection (six) hours as needed Active Problems Problem Noted Date Dehydration 08/10/2019 Hyperglycemia due to type 1 diabetes mellitus 08/10/19 20 Lactic acidosis 08/10/2019 Renal insufficiency Gastroparesis ROSALIO (acute kidney injury) CKD stage 3 due to type 1 diabetes mellitus Social History Tobacco Use Types Packs/Day Years [...] Pressure 127/87 09/08/2020 6:24 PM PST Pulse 123 06/12/2020 6:55 PM PST Temperature 37.2 C (99 F) 09/08/2020 6:24 PM PST Respiratory Rate 20 09/08/2020 6:24 PM PST Oxygen Saturation 98% 09/08/2020 9:38 PM PST Inhaled Oxygen Concentration - - Weight 90.7 kg (200 lb) 09/08/2020 6:24 PM PST Height 170.2 cm (5' 7") 08/11/2019 1:40 AM PST Body Mass Index 31.32 08/11/2019 1:40 AM PST Plan of Treatment Not on file Insurance Payer Benefit Plan Subscriber ID Effective Dates Phone Address Type / Group [employer]AMIKA [employer] [id number] 2020[address] [phone] [address] [address] MEDICARE [address] [place], [place] [address] Advance Directives For more information, please contact: [phone] Latest Code Status on File Code Status Date Activated Date Inactivated Comments Full Code 08/11/2019 1:48 AM 04/04/2020 8:32 AM Care Teams Offshore Wind Operations Manager Relationship Specialty Start Date End Date Quinten Prasad MD PCP - General Family Medicine 09/08/20 [id number] [place], [place] [id number]
--- OUTSIDE RECORDS SUMMARY | 2022-07-24 16:40 | External Medical Summary | Summary of Care ---
:[address] [facility] ic Address [address] [place] [address]- Care Team Providers Name Role Phone Means Flynn PIERCE Primary Care Physician Encounter FNBR [id number] Date(s): 07/10/19 - 07/10/19 [facility] [address] [place] [address]- [place] Discharge Disposition: *Home (01) Attending Physician: Chris Castro MD Referring Physician: Angela Wilson MD Problem [...] Unknown Active NSAIDs Not to take per Surfacing Machine Operator Unknown Act dayan Medications captopril 12.5 [...]
--- OUTSIDE RECORDS SUMMARY | 2022-07-24 16:40 | External Medical Summary | Summary of Care ---
:1985 Author Organization [facility] ic Address [address] [place] [address]- Care Team Providers Name Role Phone Shanice PIERCE, Quinten Velazquez Primary Care Physician Encounter FNBR [id number] Date(s): 06/24/20 - 06/24/20 [facility] [address] Discharge Disposition: *Home (01) Attending Physician: Claritza Mojica MD Vital Signs Most recent to oldest [Reference Range]: 1 Body Mass Index 31.19 kg/m2 (06/24/20 10:43 AM) Blood Pressure [90-138/60-88 mmHg] 99/66 mmHg (06/24/20 10:43 AM) Peripheral Pulse Rate [50-110 bpm] 72 bpm (06/24/20 10:43 AM) Problem List Condition Effective Dates Status [...] Unknown Active NSAIDs Not to take per 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 Unknown Act dayan Medications carvedilol 6.25 mg [...] Most recent to oldest [Reference Range]: 1 Cyanocobalamin, Vitamin B12 [300-816 pg/mL] 561 pg/mL (06/24/20 12:06 PM) Ferritin Level, Serum [31-356 ng/mL] 59 ng/mL (06/24/20 12:06 PM) Folate Level, Serum [7.0-20.0 ng/mL] 13.1 ng/mL (06/24/20 12:06 PM) Parathyroid Hormone-Intact [11.0-77.0 pg/mL] 101.2 pg/ mL *HI* (06/24/20 12:06 PM) Vitamin D 25-OH, Total [30.0-60.0 ng/mL] 21.7 ng/mL *LOW* (06/24/20 12:06 PM) eGFR (-Gibraltarian) [60-300 mL/min/1.73m] 27 mL/ min/1.73m *LOW* (06/24/20 12:06 PM) eGFR (NonAfrican-Gibraltarian) [60-300 mL/min/1.73m] 23 mL/min/1.73m *LOW* (06/24/20 12:06 PM) Immunoglobulin A Serum [63-484 mg/dL] 327 mg/dL (06/24/20 12:06 PM) Anion Gap, Blood [6-14 mmol/L] 12 mmol/L (06/24/20 12:06 PM) Calcium Level [8.7-10.4 mg/dL] 9.2 mg/dL (06/24/20 12:06 PM) Carbon Dioxide Content (CO2) [22-31 mmol/L] 35 mmol/L *HI* (06/24/20 12:06 PM) Chloride Level [100-112 mmol/L] 85 mmol/L *LOW* (06/24/20 12:06 PM) Creatinine, Serum [0.72-1.25 mg/dL] 3.32 mg/dL *HI* (06/24/20 12:06 PM) Glucose Random [75-139 mg/dL] 170 mg/dL *HI* (06/24/20 12:06 PM) Iron % Saturation [20-50 %] 20 % (06/24/20 12:06 PM) Iron Total [60-165 mcg/dL] 70 mcg/dL (06/24/20 12:06 PM) Potassium Level [3.5-5.3 mmol/L] 3.4 mmol/L *LOW* (06/24/20 12:06 PM) Sodium Level [136-146 mmol/L] 132 mmol/L *LOW* (06/24/20 12:06 PM) Total Calcium [8.7-10.4 mg/dL] 9.4 mg/dL (06/24/20 12:06 PM) Transferrin [200-360 mg/dL] 251 mg/dL (06/24/20 12:06 PM) Urea Nitrogen [9-25 mg/dL] 35 mg/dL *HI* (06/24/20 12:06 PM) Iron Binding Capacity, Total [280-504 mcg/dL] 351 mcg/ dL (06/24/20 12:06 PM) Immunizations Given and Recorded Vaccine Date Status Refusal Reason influenza virus vaccine, inactivated 03/18/19 Recorded
--- OUTSIDE RECORDS SUMMARY | 2022-07-24 16:40 | External Medical Summary | Summary of Care ---
:1985 Author Organization [facility] Address [address] [place] [address]- Care Team Providers Name Role Phone Means Flynn PIERCE Primary Care Physician Encounter FNBR [id number] Date(s): 03/13/20 - 03/13/20 [facility] [address] [place] [address]- [place] Discharge Disposition: *Home () Attending Physician: [facility] Vital Signs Most recent to oldest [Reference Range]: 1 Blood Pressure [90-138/60-88 mmHg] 148/87 mmHg *HI* (03/13/20 6:26 PM) Peripheral Pulse Rate [50-110 bpm] 85 bpm (03/13/20 4:14 PM) Problem List Condition Effective Dates Status [...] Active NSAIDs Not to take per 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
--- OUTSIDE RECORDS SUMMARY | 2022-07-24 16:40 | External Medical Summary | Encounter Summary ---
:1985 Author Organization [facility] Address [address] [place] [address] Care Team Providers Name Role Phone Unavailable Primary Care Provider Unavailable Reason for Visit Reason Comments Emesis Dehydration Encounter Details Date Type Department Care Team Description 08/05/2020 - Emergency [facility] Tran Murillo Gastroparesis (Primary Dx); 08/06/[address] PEMA Crawley MD Non-intractable vomiting with nausea, un specified vomiting type; [place] [address] Elevated serum creatinine [phone] [place] [address] Social History Tobacco Use Types Packs/Day Years [...] Sign Reading Time Taken Comments Blood Pressure 130/85 08/06/2020 12:19 AM PST Pulse - - Temperature 36.7 C (98.1 F) 08/05/2020 7:49 PM PST Respiratory Rate 18 08/05/2020 7:48 PM PST Oxygen Saturation 94% 08/06/2020 12:19 AM PST Inhaled Oxygen Concentration - - Weight - - Height - - Body Mass Index - - documented in this encounter Discharge Instructions Discharge InstructionsTran Murillo MD - 08/06/2020 12:43 AM PST Images from the original note were not included. Follow up with provider as indicated above. Return to the ER for uncontrolled vomiting, fevers. Incidental findings: Your creatinine today was 2.5. You should follow up with your reinsurance clerk. Return to the emergency department in the next 12-24 hrs if your condition worsens. If you develop increasing pain, fevers, or concerns. Contact your primary care doctor or referral physician in next 48 hrs if not improving. If you do not have a primary care doctor or need a specialist, a referral will be given to you with these discharge instructions. Your emergency physician today is Dr. Chidi M.D Gastroparesis Gastroparesis happens when the stomach takes longer than normal to empty of food. It's also called delayed gastric emptying. It's due to a problem with motility. This is the movement of the muscles in the digestive tract. For many people, gastroparesis is a lifelong health problem. But treatment can help ease symptoms and prevent complications. Read on to learn more about gastroparesis and how it can be managed. Gastroparesis means that food and fluids move too slowly out of the stomach into the duodenum. How gastroparesis develops With normal motility, signals from nerves tell the stomach muscles when to contract. These muscles move food from the stomach into the duodenum (the first part of the small bowel). With gastroparesis, the nerves or muscles are damaged. This causes motility to slow down or stop. As a result, food can'tmove from the stomach in the right way. This delayed emptying can cause nausea, vomiting, and other symptoms. Malnutrition can result. Bezoars (hardened lumps of food) can form in the stomach and causeother problems as well. Causes of gastroparesis Gastroparesis can be caused by any of these: Diabetes Surgery of any of the digestive organs, such as the stomach and bowels Certain medicines, such as strong pain medicines (narcotics) Certain health problems, such as systemic scleroderma, Parkinson disease, and thyroid disease After a viral illness In many cases, the cause of gastroparesis can't be found. Symptoms of gastroparesis These can include: Nausea and vomiting Feeling full quickly when eating Belly pain Heartburn Belly bloating Weight loss Loss of appetite High and low blood sugar levels (in people withdiabetes) Diagnosing gastroparesis Your healthcare provider will ask about your symptoms and health history. Youll also be examined.In addition, blood tests and X-rays are often done to check your health and rule out other problems.To confirm the problem, you may need other tests as well, such as: Upper endoscopy.This is doneto see inside the stomach and duodenum. For the test, an endoscope is used. This is a thin, flexible tube with a tiny camera on the end. Its inserted through the mouth and down into the stomach and duodenum. Upper gastrointestinal (GI) series.This is doneto take X-rays of the upper GI tract from the mouth to the small bowel. For the test, a substance called barium is used. The barium coats the upperGI tract so that it will show up clearly on X-rays. Radioisotope gastric-emptying scan.This is done to measure how quickly food leaves the stomach.For the test, a meal containing a harmless radioactive substance (tracer) is eaten. Then scans of the stomach are done. The tracer shows up clearly on the scans. It shows the movement of the food through the stomach. Gastric (antroduodenal) manometry. This test gives pressure measurements of the stomach and smallintestine. It checks how the contractions are working. Wireless capsule study. This test involves swallowing a wireless capsule. The capsule measures how well the stomach empties and how fast food and fluids move through your intestines. You will pass the capsule out of your body with a bowel movement. Gastric emptying breath test (GEBT). This test checks stomach emptying. It measures how much carbon dioxide you breathe out over several hours after eating food. Scintigraphic gastric accommodation. This test measures your stomach contents before and after a meal. It also checks how well your stomach relaxes after you eat food. Treating gastroparesis The goal of treatment is to help you manage your condition. Treatment may include one or more of these: Dietary changes.You may need to make changes to your eating habits and daily diet. For instance, your healthcare provider may tell you to eat small meals throughout the day. Doing this can keep you from feeling full too quickly. You may be placed on a liquid or soft diet. This means youll eat liquid foods or foods that are mashed or put through a crusher and blender operator. Plus, you may need to stay awayfrom foods high in fats and fiber. These can slow digestion. For more help with your diet, your healthcare provider can refer you to a dietitian. In severe cases, you may need a feeding tube. This sends liquid food or medicine directly to your small bowel, bypassing the stomach. Treating diabetes. If you have diabetes, it is important to control your blood sugar. High sugar levels worsen gastroparesis. Medicines.These can help manage symptoms, such as nausea and vomiting. They can also improve motility. Each medicine has specific risks and side effects. Your healthcare provider can tell you moreabout any medicine that is prescribed for you. Also, if you are on narcotic pain relievers and certain other medicines, your healthcare provider may also advise stopping these if they are contributing to your gastroparesis. Surgery.You may need to have a tube surgically put into the stomach. The tube removes excess air and fluid. This can ease severe symptoms of nausea and vomiting. In rare cases, other surgery may be needed on the stomach or small bowel. This is to make a new passageway for food to be emptied from the stomach. Gastric electrical stimulation. This treatment is done less often and may not be available. Your healthcare provider can tell you more about this treatment if it is a choice for you. Diabetes and gastroparesis If you have diabetes, gastroparesis can make it harder to manage your blood sugar level. Youll need to take extra steps in your treatment to prevent complications. Work with your healthcare providerto learn what you can do to protect your health. For more information, contact the [place] [employer] , www.diabetes.org. Long-term concerns With treatment, most people can manage their symptoms and keep up their usual routines. If your symptoms are moderate to severe, you may need to see your healthcare provider more often for checkups. Also, other treatments will likely be needed. [employer] last reviewed this educational content on 12/16/201819999867-0369 [employer]. All rights reserved. This information is not intended as a substitute for professional medical care. Always follow your healthcare professional's instructions. documented in this encounter Medications at Time of Discharge Medication Sig Dispensed Refills Start Date End Date atorvastatin (LIPITOR) 40 Take 40 mg by mouth 0 MG tablet nightly carvediloL (COREG) 3.125 Take 1 tablet (3.125 60 tablet 0 0 08/11/2019 MG tablet mg total) by mouth 2 (two) times daily with meals cloNIDine (CATAPRES-TTS) apply 1 patch 0 01/14/20 [...] documented as of this encounter ED Notes Marcia Hale RN - 08/06/2020 12:51 AM PST Discharge instructions were reviewed, pt verbalized plan to follow up with reinsurance clerk and with hisprimary care and to return for intractable vomiting unmanaged by home medications. Marcia Hale RN - 08/05/2020 10:53 PM PST Pt visibly appears more comfortable, but has hiccups. Water and crackers are at bedside, spouse alsoat bedside, call light within reach. Tran Murillo MD - 08/05/2020 9:40 PM PST Images from the original note were not included. Emergency Department Note Chief Complaint: Chief Complaint Patient presents with Emesis Dehydration Arrival Method: Car Escorted by: FAMILY MEMBER Primary Care Provider: No primary care provider on file. HPI: This is a 34 y.o. male with a history of gastroparesis, type 1 diabetes, chronic kidney disease who presents with concern of uncontrolled nausea and vomiting. Patient reports that he has a history of the same and actually has IM Phenergan and Zofran at home that he will use 1 symptoms flare up. He states he began to feel sick yesterday and gave himself Zofran and Phenergan last night. states shethought he was feeling better today and was out during the day and returned home to find patient with continued emesis. He does have a history of significant acute renal injury during these episodes and so usually has to present to the hospital in order to get medications as well as IV fluids. He doeshave a continuous glucose monitor and states his blood sugars been 150-160 today. No recent fevers or chills. He is not having any abdominal pain that is out of the normal for him from his gastroparesis. No diarrhea. No pain with urination. No other recent change in medications. PMH: Past Medical History: Diagnosis Date Anxiety Diabetes mellitus (HCC) Gastroparesis Hypertension Neuropathy Renal disorder Type 1 diabetes mellitus with autonomic neuropathy (HCC) PSurg: No past surgical history on file. Allergies: Compazine [prochlorperazine], Nsaids (non-steroidal anti-inflammatory drug), Reglan [metoclopramide hcl], and Silver Meds: Previous Medications ATORVASTATIN (LIPITOR) 40 MG TABLET Take 40 mg by mouth nightly CARVEDILOL (COREG) 3.125 MG TABLET Take 1 tablet (3.125 mg total) by mouth 2 (two) times daily withmeals CLONIDINE (CATAPRES-TTS) 0.2 MG/24 HR apply 1 patch topically every week FLUVOXAMINE (LUVOX) 50 MG TABLET Take 100 mg by mouth nightly FUROSEMIDE (LASIX) 20 MG TABLET take 1 tablet by mouth once daily if needed for EDEMA/HYPERTENSIO... (REFER TO PRESCRIPTION NOTES). GABAPENTIN (NEURONTIN) 300 MG CAPSULE Take 600 mg by mouth 3 (three) times daily INSULIN LISPRO (INSULIN PUMP, PATIENT'S OWN,) Inject into the skin as needed 12am-2am Basal 1.2, correct factor 1:45, carb ratio 1:13, target 120 2am-7am Basal 0.7, correct factor 1:45, carb ratio 1:13, target 140 7am-12am Basal 1.2, correct factor 1:45, carb ratio 1:13, target 120 LISINOPRIL (PRINIVIL,ZESTRIL) 5 MG TABLET Take 5 mg by mouth LORAZEPAM (ATIVAN) 0.5 MG TABLET Take 0.5 mg by mouth 3 (three) times daily as needed for Anxiety Indications: panic attack MELATONIN 10 MG TAB Take by mouth nightly as needed MULTIVITAMIN (MULTIVITAMIN) TABLET Take 1 tablet by mouth nightly OMEPRAZOLE (PRILOSEC) 20 MG CAPSULE take 1 capsule by mouth twice a day BEFORE BREAKFAST AND DINNERFOR 90 DAYS ONDANSETRON (ZOFRAN-ODT) 4 MG DISINTEGRATING TABLET dissolve 1 tablet ON TONGUE every 6 hours if needed for nausea PROMETHAZINE (PHENERGAN) 25 MG/ML INJECTION Inject 12.5 mg into the muscle every 6 (six) hours as needed SENNA (SENOKOT) 8.6 MG TABLET Take 8.6 mg by mouth nightly as needed for Constipation TADALAFIL (CIALIS) 10 MG TABLET Take 5 mg by mouth nightly UNABLE TO FIND 50 mg by Nasal route 3 (three) times daily as needed Ketamine 50 mg/ml, 1-2 sprays into each nostril TID PRN nausea and vomitting Social: Social History Tobacco Use Smoking status: Never Smoker Smokeless tobacco: Never Used Substance Use Topics Alcohol use: Never Frequency: Never REVIEW OF SYSTEMS: Constitutional: denies fever, chills Cardiovascular:: no chest pain, denies palpitations Respiratory: denies SOB, no wheezing GI: + abdominal pain, vomiting : denies dysuria MSK: denies joint pain Skin: No rash Heme: denies easy bleeding Psych: Denies anxiety Neurologic: denies headaches, denies numbness PHYSICAL EXAM: ED Triage Vitals Temp Pulse Resp BP SpO2 SPO2 Pulse Rate Pain Score 08/05/201948 -- 08/05/20194708/05/20194708/05/20194708/05/201947 -- 36.7 C (98.1 F) 18 (!) 155/107 98 % 128 ED Encounter Vitals Date and Time Temp Pulse Resp BP SpO2 SPO2 Pulse Rate ID 08/05/202129 -- -- -- 157/99 -- -- CS 08/05/202130 -- -- -- -- 100 % 106 CS 08/06/20 0004 -- -- -- 129/88 95 % 96 CS 08/06/20 001 -- -- -- 130/85 94 % 96 CS Subsequent Vital: Vitals: 08/05/20212908/05/20213008/06/20 0004 08/06/20 001 BP: (!) 157/99 129/88 130/85 Resp: Temp: SpO2: 100% 95% 94% General: Patient is afebrile, Vital signs reviewed, well appearing, Patient appears uncomfortable, actively vomiting Head: Atraumatic, normocephalic Eyes: Normal to inspection ENT: oral mucosa moist, nares patent Neck: Normal inspection, supple CV: Regular rate and rhythm, heart sounds normal Resp: No respiratory distress, breath sounds normal Abd: Soft, non-tender, no distended Back: Non-tender MSK: no gross deformity, no pedal edema Skin: warm, dry, intact Neuro: Awake, alert, and lucid. No gross motor deficits. Gait stable Psych: cooperative, normal affect MEDICAL DECISION MAKING: On arrival patient appears uncomfortable and is actively vomiting but does not a focal abdominal tenderness to palpation. I suspect symptoms are most likely related to patient's known gastroparesis butadditional differential includes pancreatitis, biliary pathology, diabetic ketoacidosis in this typeI diabetic. As a result for evaluation I will plan on checking a CBC, CMP and lipase as well as a venous blood gas to look for signs of acidosis. Patient reports that he has previously had significant improvement with IV Ativan, Zofran, Phenergan and IV fluids which will be ordered at this time. Will reassess. RESULTS: Labs: Recent Results (from the past 48 hour(s)) CBC With Auto Differential Collection Time: 08/05/20 8:28 PM Result Value Ref Range White Blood Cells 9.58 (H) 4.23 - 9.07 10E3/uL RBC 4.92 4.20 - 5.70 10E6/uL Hemoglobin 14.0 13.7 - 17.5 g/dL Hematocrit 42.9 40.1 - 51.0 % MCV 87.2 79.0 - 92.2 fL MCH 28.5 25.7 - 32.2 pg MCHC 32.6 32.3 - 36.5 g/dL RDW-SD 42.5 35.1 - 43.9 fl RDW-CV 13.2 11.6 - 14.4 % Platelet Count 353 (H) 163 - 337 10E3/uL MPV 11.2 9.4 - 12.4 fL nRBC(auto)% 0.0 0 - 0.2 /100WBC nRBC# 0.00 0 - 0.012 10E3/uL Neutrophils % (Auto) 83.5 (H) 34.0 - 67.9 % Lymphocytes % 10.6 (L) 21.8 - 53.0 % Monocytes % (Auto) 5.0 (L) 5.3 - 12.2 % Eosinophils % 0.1 (L) 0.8 - 7.0 % Basophils % 0.4 0.2 - 1.2 % Immature Granulocytes % (IG%) 0.4 0.0 - 0.4 % Immature Granulocytes Count 0.04 (H) 0.00 - 0.03 10E3/uL Absolute Neutrophils 7.99 (H) 1.78 - 5.38 10E3/uL Absolute Lymphocytes 1.02 (L) 1.32 - 3.57 10E3/uL Absolute Monocytes 0.48 0.30 - 0.82 10E3/uL Absolute Eosinophils 0.01 (L) 0.04 - 0.36 10E3/uL Absolute Basophils 0.04 0.01 - 0.08 10E3/uL Comprehensive metabolic panel Collection Time: 08/05/20 8:28 PM Result Value Ref Range Glucose 176 (H) 74 - 109 mg/dL BUN 23.0 7.0 - 25.0 mg/dL Creatinine 2.53 (H) 0.70 - 1.30 mg/dL eGFR 29 m/m/1.73 Sodium 140 136 - 145 mmol/L Potassium 3.8 3.5 - 5.1 mmol/L Chloride 94 (L) 98 - 107 mmol/L CO2 31 21 - 31 mmol/L Anion Gap 15 5 - 16 mmol/L Calcium 10.2 8.6 - 10.3 mg/dL Total Protein 8.5 (H) 6.0 - 8.3 G/DL Albumin 4.5 3.5 - 5.7 G/DL Bilirubin Total 0.5 0.3 - 1.0 mg/dL Alkaline Phosphatase 119 (H) 34 - 104 U/L ALT (SGPT) 11 7 - 52 U/L AST (SGOT) 16 13 - 39 U/L Lipase Collection Time: 08/05/20 8:28 PM Result Value Ref Range Lipase 8.0 (L) 11.0 - 82.0 U/L i-STAT CHEM8+ Panel Collection Time: 08/05/20 8:43 PM Result Value Ref Range iSTAT BUN 24 (H) 7 - 23 mg/dL iSTAT Glucose 175 (H) 65 - 99 mg/dL iSTAT Creatinine 2.60 (H) 0.7 - 1.5 mg/dL iSTAT eGFR 29 m/m/1.73 iSTAT Sodium 138 135 - 145 mmol/L iSTAT Potassium 3.7 3.5 - 5.0 mmol/L iSTAT Chloride 94 (L) 98 - 109 mmol/L iSTAT CO2 33 (H) 21 - 32 mmol/L iSTAT Anion Gap 16 5 - 16 mmol/L iSTAT Hemoglobin 15.3 13.2 - 17.0 g/dL iSTAT Hematocrit 45 40 - 50 % iSTAT Ionized Calcium 1.12 (L) 1.18 - 1.32 mmol/L I-STAT VBG+/LACTATE Collection Time: 08/05/20 8:46 PM Result Value Ref Range pH Venous 7.504 (H) 7.310 - 7.410 pCO2 Venous 43.2 40.0 - 52.0 mmHg pO2 Venous 33.0 30.0 - 50.0 mmHg HCO3, Husam 34.0 (H) 22.0 - 27.0 mmol/L Base Excess, Husam 11.0 (H) -3.0 - 3.0 mmol/L O2 Sat, Husam 69.0 (L) 92.0 - 98.0 % Lactate, Venous 1.93 0.40 - 2.00 mmol/L Imaging: No orders to display Medications, medical history, allergies, surgical history, hospitalizations, family history, social history, ROS and vitals entered by nursing staff and reviewed by myself. ED COURSE: Medications given in ED: Medications lidocaine (PF) (XYLOCAINE) 10 mg/mL (1 %) injection 0.2 mL (has no administration in time range) Or lidocaine (XYLOCAINE) (1%) injection 0.2 mL (has no administration in time range) sodium chloride 0.9 % infusion 25 mL (has no administration in time range) sodium chloride 0.9 % flush 10 mL (has no administration in time range) And sodium chloride 0.9 % flush 10 mL (10 mLs Intra-Catheter Given 08/06/2041) And heparin lock flush (porcine) (100 unit/mL) flush 500 Units (500 Units Intra- Catheter Given 08/06/2041) And sodium chloride 0.9 % flush 20 mL (has no administration in time range) sodium chloride 0.9 % infusion 1,000 mL (0 mLs Intravenous Stopped 08/05/202154) ondansetron (ZOFRAN) 4 mg/2 mL injection 4 mg (4 mg Intravenous Given 08/05/202029) LORazepam (ATIVAN) injection 1 mg (1 mg Intravenous Given 08/05/202029) promethazine (PHENERGAN) injection 12.5 mg (12.5 mg Intravenous Given 08/05/202029) sodium chloride 0.9 % infusion 1,000 mL (0 mLs Intravenous Stopped 08/06/202350) promethazine (PHENERGAN) injection 12.5 mg (12.5 mg Intravenous Given 08/05/202350) ondansetron (ZOFRAN) 4 mg/2 mL injection 4 mg (4 mg Intravenous Given 08/05/202350) LORazepam (ATIVAN) injection 1 mg (1 mg Intravenous Given 08/05/202350) Results review: Labs tonight show creatinine of 2.6, patient has been as high as 3.2 during previous presentations for the same. Remainder of electrolytes notable for a glucose of 175 with a normal bicarbonate, normalanion gap and a pH on VBG of 7.5, no evidence of diabetic ketoacidosis. CBC unremarkable. Timestamp events: 9:47 PM Pt feeling better wanting to try taking oral fluids. 10:30 PM Pt with recurrent nausea, repeat zofran/ativan/phenergan will be ordered 12:41 AM Pt now feeling much better, tolerating PO and requesting to go home. is at bedside who is also comfortable. He will follow up with nephrology regarding elevated Cr and will return if recurrent symptoms. I discussed with the patient the diagnosis, treatment, plan, and indications for return to the emergency department. The patient verbalized an understanding. The patient is asked if there are any questions or additional concerns Follow up plan per the discharge instructions including returning to the emergency department in thenext 12-24hrs if increasing symptoms, pain, fevers, or concerns. DIAGNOSIS: 1. Gastroparesis 2. Non-intractable vomiting with nausea, unspecified vomiting type 3. Elevated serum creatinine DISPOSITION: The patient is discharged in stable condition. Follow up: Please follow up with your primary care doctor in 1-2 days Medications on Discharge New Prescriptions No medications on file ED Visit Patient roomed in ED 08/05/201955 Tran Murillo MD 12:49 AM 08/06/2020 Attending Physician [facility] Tran Murillo MD 08/06/20 0049 Marcia Hale RN - 08/05/2020 8:16 PM PST Pt reports vomiting for almost three days now. Pt vomited the two previous days, appeared better this am, spouse came home and found Mauri still vomiting. Pt takes ativan for nausea. Hema Victoria RN - 08/05/2020 7:49 PM PST Pt arrives via family/caregiver who reports 2 days of ongoing vomiting. Hx of gastroparesis. Pt reports hx of severe dehydration when this happens. Patient is diabetic, last BS 150 1 hr [employer] and currently 160s. Pt denies pain. documented in this encounter Miscellaneous Notes MALLORY-Visit History - Mallory Interface Model - 08/05/2020 7:42 PM PST Mallory has no Care Guidelines for this patient. [...] Rx Count:2 ED/UCC VISIT TRACKING (3 MO.) 08/05/2020 19:42 Sid LOREDO TYPE: Emergency DIAGNOSES: - Emesis; Abdominal Pain 06/12/2020 18:48 Sid LOREDO TYPE: Emergency DIAGNOSES: [...] time frame EDeena. VISIT COUNT (12 MO.) 6 [facility] 1 [facility] TOTAL 7 NOTE: Visits indicate total known visits. CARE PROVIDERS KWAME FLORES [facility] Current PHONE: [phone] CLAUDIA SIEGEL L, Nurse Practitioner: Psychiatric/Mental Health Current WENDY Serrano PHONE: Unknown [facility] Primary [facility] Current PHONE: Unknown ML [facility] Primary Care Chrissy GARCIA PHONE: Unknown [facility] Primary [facility] Chrissy RODRÍGUEZ PHONE: Unknown [facility] Primary Care Current PHONE: [phone] [email or web address] Security Events No recent Security Events currently on file documented in this encounter Plan of Treatment Not on filedocumented as of this encounter Procedures Procedure Name Priority Date/Time Associated Comments Diagnosis I-STAT VBG+/LACTATE Routine 08/05/2020 8:46 PM Re sults for this PST procedure are i n the results section. I-STAT CHEM8+ PANEL Routine 08/05/2020 8:43 PM Re sults for this PST procedure are i n the results section. CBC WITH AUTO STAT 08/05/2020 8:28 PM Results for this DIFFERENTIAL PST procedure are i n the results section. LIPASE STAT 08/05/2020 8:28 PM Results f or this PST procedure are i n the results section. COMPREHENSIVE STAT 08/05/2020 8:28 PM Results for this METABOLIC PANEL PST procedure ar e in the results section. documented in this encounter Results (ABNORMAL) I-STAT VBG+/LACTATE (08/05/2020 8:46 PM PST) Analysis Performed At Patho logist Time Signature pH Venous 7.504 (H) 7.310 - 08/05/2020 [facility] 7.410 8:49 PM PST pCO2 Venous 43.2 40.0 - 08/05/2020 [facility] 52.0 mmHg 8:49 PM PST pO2 Venous 33.0 30.0 - 08/05/2020 [facility] 50.0 mmHg 8:49 PM PST HCO3, Husam 34.0 (H) 22.0 - 08/05/2020 [facility] 27.0 8:49 PM PST mmol/L Base Excess, 11.0 (H) -3.0 - 3.0 08/05/2020 [facility] Husam mmol/L 8:49 PM PST O2 Sat, Husam 69.0 (L) 92.0 - 08/05/2020 [facility] 98.0 % 8:49 PM PST Lactate, 1.93 0.40 - 08/05/2020 [facility] Venous 2.00 8:49 PM PST mmol/L Specimen Anatomical Collection Method Collection Time Receive d Time (Source) Location / / Volume Laterality Blood specimen 08/05/2020 8:46 PM 021 8:49 (specimen) PST PM PST (Blood) Poct Results Unsolicted POCT ORDERABLES - DEVICE Performing Organization Address City/State/ZIP Code Phon e Number [facility] [address] [place] [address] (ABNORMAL) i-STAT CHEM8+ Panel (08/05/2020 8:43 PM PST) Analysis Performed At Patho logist Time Signature iSTAT BUN 24 (H) 7 - 23 08/05/2020 [facility] mg/dL 9:06 PM PST iSTAT Glucose 175 (H) 65 - 99 08/05/2020 [facility] mg/dL 9:06 PM PST iSTAT 2.60 (H) 0.7 - 1.5 08/05/2020 [facility] Creatinine mg/dL 9:06 PM PST iSTAT eGFR 29 m/m/1.73 08/05/2020 [facility] 9:06 PM PST Comment: GFR < 60: Chronic kidney disease if foun d over a 3 month period. iSTAT Sodium 138 135 - 145 mmol/L 08/05/2020 9:[address] [facility] iSTAT Potassium 3.7 3.5 - 5.0 mmol/L 08/05/2020 9:06 P M [facility] iSTAT Chloride 94 (L) 98 - 109 mmol/L 08/05/2020 9:06 PM [facility] iSTAT CO2 33 (H) 21 - 32 mmol/L 08/05/2020 9:06 PM [facility] iSTAT Anion Gap 16 5 - 16 mmol/L 08/05/2020 9:06 PM [facility] iSTAT Hemoglobin 15.3 13.2 - 17.0 g/dL 08/05/2020 9:06 PM [facility] iSTAT Hematocrit 45 40 - 50 % 08/05/2020 9:06 PM [facility] iSTAT Ionized Calcium 1.12 (L) 1.18 - 1.32 mmol/L 2020 9:06 PM [facility] Specimen Anatomical Collection Method Collection Time Receive d Time (Source) Location / / Volume Laterality Blood specimen 08/05/2020 8:43 PM 021 9:06 (specimen) PST PM PST (Blood) Poct Results Unsolicted POCT ORDERABLES - DEVICE Performing Organization Address [facility] Phon e Number [facility] [address] [place] [address] (ABNORMAL) Lipase (08/05/2020 8:28 PM PST) athologist Signature Lipase 8.0 (L) 11.0 - 82.0 08/05/2020 [facility] U/L 9:37 PM [facility] Specimen Anatomical Collection Method Collection Time Receive d Time (Source) Location / / Volume Laterality Blood specimen Line / Unknown 08/05/2020 8:28 PM 08/05 8:41 (specimen) PST PM PST Tran Murillo MD LAB BLOOD ORDERABLES Performing Organization Address [facility] Phon e Number [facility] [address] [place] [address] (ABNORMAL) Comprehensive metabolic panel (08/05/2020 8:28 PM PST) athologist Signature Glucose 176 (H) 74 - 109 08/05/2020 [facility] mg/dL 9:37 PM PST Comment: Glucose Reference Range : ADA 2020 Diagnostic Categories for nonpr egnant adults: Pre-Diabetes: Fasting glucose of 100-125 mg/dL Diabetes: Fasting glucose of 126 mg/dL or greater Random glucose of 200 mg/dL or greater i n patients with classic symptoms of hyperglycemia or hyperglycemic crisis. BUN 23.0 7.0 - 25.0 mg/dL 08/05/2020 9:37 PM [facility] Creatinine 2.53 (H) 0.70 - 1.30 mg/dL 08/05/2020 9:37 PM PS T [facility] eGFR 29 m/m/1.73 08/05/2020 9:37 PM [facility] B Comment: GFR < 60: Chronic kidney disease if foun d over a 3 month period. Sodium 140 136 - 145 mmol/L 08/05/2020 9:37 PM [facility] Potassium 3.8 3.5 - 5.1 mmol/L 08/05/2020 9:37 PM [facility] Chloride 94 (L) 98 - 107 mmol/L 08/05/2020 9:37 PM PST O C LAB CO2 31 21 - 31 mmol/L 08/05/2020 9:37 PM [facility] Anion Gap 15 5 - 16 mmol/L 08/05/2020 9:37 PM [facility] Calcium 10.2 8.6 - 10.3 mg/dL 08/05/2020 9:37 PM [facility] Total Protein 8.5 (H) 6.0 - 8.3 G/DL 08/05/2020 9:[address] [facility] Albumin 4.5 3.5 - 5.7 G/DL 08/05/2020 9:37 PM [facility] Bilirubin Total 0.5 0.3 - 1.0 mg/dL 08/05/2020 9:37 PM [facility] Alkaline Phosphatase 119 (H) 34 - 104 U/L 08/05/2020 9:37 PM [facility] ALT (SGPT) 11 7 - 52 U/L 08/05/2020 9:37 PM [facility] AST (SGOT) 16 13 - 39 U/L 08/05/2020 9:37 PM [facility] Specimen Anatomical Collection Method Collection Time Receive d Time (Source) Location / / Volume Laterality Blood specimen Line / Unknown 08/05/2020 8:28 PM 08/05 8:41 (specimen) PST PM PST Tran Murillo MD LAB BLOOD ORDERABLES Performing Organization Address City/State/ZIP Code Phon e Number [facility] [address] [place] [address] (ABNORMAL) CBC With Auto Differential (08/05/2020 8:28 PM PST) [facility] Method Time Signature White Blood Cells 9.58 (H) 4.23 - 08/05/2020 [facility] 9.07 8:54 PM PST 10E3/uL RBC 4.92 4.20 - 08/05/2020 [facility] 5.70 8:54 PM PST 10E6/uL Hemoglobin 14.0 13.7 - 08/05/2020 [facility] 17.5 g/dL 8:54 PM PST Hematocrit 42.9 40.1 - 08/05/2020 [facility] 51.0 % 8:54 PM PST MCV 87.2 79.0 - 08/05/2020 [facility] 92.2 fL 8:54 PM PST MCH 28.5 25.7 - 08/05/2020 [facility] 32.2 pg 8:54 PM PST MCHC 32.6 32.3 - 08/05/2020 [facility] 36.5 g/dL 8:54 PM PST RDW-SD 42.5 35.1 - 08/05/2020 [facility] 43.9 fl 8:54 PM PST RDW-CV 13.2 11.6 - 08/05/2020 [facility] 14.4 % 8:54 PM PST Platelet Count 353 (H) 163 - 337 08/05/2020 [facility] 10E3/uL 8:54 PM PST MPV 11.2 9.4 - 08/05/2020 [facility] 12.4 fL 8:54 PM PST nRBC(auto)% 0.0 0 - 0.2 08/05/2020 [facility] /100WBC 8:54 PM PST nRBC# 0.00 0 - 0.012 08/05/2020 [facility] 10E3/uL 8:54 PM PST Neutrophils % 83.5 (H) 34.0 - 08/05/2020 [facility] (Auto) 67.9 % 8:54 PM PST Lymphocytes % 10.6 (L) 21.8 - 08/05/2020 [facility] 53.0 % 8:54 PM PST Monocytes % 5.0 (L) 5.3 - 08/05/2020 [facility] (Auto) 12.2 % 8:54 PM PST Eosinophils % 0.1 (L) 0.8 - 7.0 08/05/2020 [facility] % 8:54 PM PST Basophils % 0.4 0.2 - 1.2 08/05/2020 [facility] % 8:54 PM PST Immature 0.4 0.0 - 0.4 08/05/2020 [facility] Granulocytes % % 8:54 PM PST (IG%) Immature 0.04 (H) 0.00 - 08/05/2020 [facility] Granulocytes 0.03 8:54 PM PST Count 10E3/uL Absolute 7.99 (H) 1.78 - 08/05/2020 [facility] Neutrophils 5.38 8:54 PM PST 10E3/uL Absolute 1.02 (L) 1.32 - 08/05/2020 [facility] Lymphocytes 3.57 8:54 PM PST 10E3/uL Absolute 0.48 0.30 - 08/05/2020 [facility] Monocytes 0.82 8:54 PM PST 10E3/uL Absolute 0.01 (L) 0.04 - 08/05/2020 [facility] Eosinophils 0.36 8:54 PM PST 10E3/uL Absolute 0.04 0.01 - 08/05/2020 [facility] Basophils 0.08 8:54 PM PST 10E3/uL Specimen Anatomical Collection Method Collection Time Receive d Time (Source) Location / / Volume Laterality Blood specimen Line / Unknown 08/05/2020 8:28 PM 08/05 8:41 (specimen) PST PM PST Tran Murillo MD LAB BLOOD ORDERABLES Performing Organization Address City/State/ZIP Code Phon e Number [facility] [address] [place] [address] documented in this encounter Visit Diagnoses Diagnosis Gastroparesis - Primary Non-intractable vomiting with nausea, un specified vomiting type Elevated serum creatinine Other nonspecific findings on examinatio n of blood documented in this encounter Administered Medications Inactive Administered Medications - up to 3 most recent administrations Medication Order MAR Action Action Date Dose Rate Site heparin lock flush (porcine) Given 08/06/2020 12:42 AM PST 500 U nits (100 unit/mL) flush 500 Units 500 Units (5 mL), Intra-Catheter, As needed, Line Care, Only use prior to de-access Starting on Tue08/05/20 at 2034, Only use prior to de-access. -For Port-A-Cath flush lidocaine (PF) (XYLOCAINE) 10 mg/mL (1 % ) injection 0.2 mL 0.2 mL, Intradermal, As needed, Line Car e Starting on Tue08/05/20 at 2034, For Pe ripheral Line. Midline & PICC Placements, and Accessing Ports lidocaine (XYLOCAINE) (1%) injection 0.2 mL 0.2 mL, Intradermal, As needed, Line Car e Starting on Tue08/05/20 at 2034, For Pe ripheral Line. Midline & PICC Placements, and Accessing Ports LORazepam (ATIVAN) injection 1 mg Given 08/05/2020 8:30 PM PST 1 mg 1 mg, Intravenous, Once On Tue08/05/20 at 2014, For 1 dose LORazepam (ATIVAN) injection 1 mg Given 08/05/2020 11:51 PM PST 1 mg 1 mg, Intravenous, Once On Tue08/05/20 at 2324, For 1 dose ondansetron (ZOFRAN) 4 mg/2 mL injection 4 mg Given 08/05/2020 8:30 PM PST 4 mg 4 mg, Intravenous, Once On Tue08/05/20 at 2014, For 1 dose, If ordered IV route: may give undiluted by slow IV push over 1/2 to 2 minutes ondansetron (ZOFRAN) 4 mg/2 mL injection 4 mg Given 08/05/2020 11:51 PM PST 4 mg 4 mg, Intravenous, Once On Tue08/05/20 at 2324, For 1 dose, If ordered IV route: may give undiluted by slow IV push over 1/2 to 2 minutes promethazine (PHENERGAN) injection 12.5 mg Given 08/05/2020 8:30 PM PST 12.5 mg 12.5 mg, Intravenous, Once On Tue08/05/20 at 2014, For 1 dose promethazine (PHENERGAN) injection 12.5 mg Given 08/05/2020 11:51 PM PST 12.5 mg 12.5 mg, Intravenous, Once On Tue08/05/20 at 2324, For 1 dose sodium chloride 0.9 % flush 10 mL 10 mL, Intra-Catheter, As needed, Line C are Starting on Tue08/05/20 at 2034, After IV medications . -For Port-A-Cath flush sodium chloride 0.9 % flush 10 mL Given 08/06/2020 12:42 AM PST 10 mLs 10 mL, Intra-Catheter, Every 8 hours First dose on Tue08/06/20 at 0000, -For Port-A-Cath flush sodium chloride 0.9 % flush 20 mL 20 mL, Intra-Catheter, As needed, Line Care, After blo od sample AND/OR blood products Starting on Tue08/05/20 at 2034, -For Port-A-Cath flu sh sodium chloride 0.9 % infusion New Bag 08/05/2020 8:31 PM PST 1,000 mLs 1000 mL/hr 1,000 mL at 1,000 mL/hr, Intravenous, Once, On Tue08/05/20 at 2014, For 1 dose sodium chloride 0.9 % infusion New Bag 08/05/2020 9:55 PM PST 1,000 mLs 1000 mL/hr 1,000 mL at 1,000 mL/hr, Intravenous, Once, On Tue08/05/20 at 2143, For 1 dose sodium chloride 0.9 % infusion 25 mL at 100 mL/hr, Intracatheter, As needed, Line Care, Starting on Tue08/05/20 at 2034, For IV infusion medications, flush IV line [...] are shown in PST. Scheduled Medication Order 08/04/2020 08/05/2020 08/06/2020 LORazepam (ATIVAN) injection 1 mg (COMPLETED) 2029 (Given - Provider: Marcia Hale RN) 1 mg, Intravenous, Once Tue08/05/20 at 2014, For 1 dose LORazepam (ATIVAN) injection 1 mg (COMPLETED) 2350 (Given - Provider: Marcia Hale RN) 1 mg, Intravenous, Once 08/05/20 at 2324, For 1 dose ondansetron (ZOFRAN) 4 mg/2 mL injection 4 mg (COMPLETED) 2029 (Given - Provider: Marcia Hale RN) 4 mg, Intravenous, Once e 08/05/20 at 2013, For 1 dose, If ordered IV route: may give undiluted by slow IV push over 1/2 to 2 minutes ondansetron (ZOFRAN) 4 mg/2 mL injection 4 mg (COMPLETED) 2350 (Given - Provider: Marcia Hale RN) 4 mg, Intravenous, Once 08/05/20 at 2324, For 1 dose, If ordered IV route: may give undiluted by slow IV push over 1/2 to 2 minutes promethazine (PHENERGAN) injection 12.5 mg (COMPLETED) 2029 (Given - Provider: Marcia Hale RN) 12.5 mg, Intravenous, Once Tue08/05/20 at 2013, For 1 dose promethazine (PHENERGAN) injection 12.5 mg (COMPLETED) 2350 (Given - Provider: Marcia Hale RN) 12.5 mg, Intravenous, Once Tue08/05/20 at 2324, For 1 dose sodium chloride 0.9 % flush 10 mL(Linked Group 1) 41 (Given - Provider: Marcia Hale RN) 10 mL, Intra-Catheter, Every 8 hours First dose on Tue08/06/20 at 0000, -For Port-A-Cath flush sodium chloride 0.9 % infusion 1,000 mL (COMPLETED) 2030 (New Bag - Provider: Marcia Hale RN)2154 (Stopped - Provider: Allan Soto, NICOLE) at 1,000 mL/hr, Intravenous, Once, Tue08/05/20 at 2013, For 1 do se sodium chloride 0.9 % infusion 1,000 mL (COMPLETED) 2154 (New Bag - Provider: Allan Soto, NICOLE) 2350 (Stopped - Provider: Marcia crockett RN) at 1,000 mL/hr, Intravenous, Once, Tue08/05/20 at 2143, For 1 do se PRN Medication Order 08/04/2020 08/05/2020 08/06/2020 heparin lock flush (porcine) (100 unit/mL) flush 500 Units(Linke d Group 1) 0042 (Given - Provider: Marcia Hale RN) 500 Units (5 mL), Intra-Catheter, As nee ded, Line Care, Only use prior to de- access Starting 08/05/20 at 2034, Only use prior to de-access. -For Port-A-Cath flush lidocaine (PF) (XYLOCAINE) 10 mg/mL (1 %) injection 0.2 mL(Linke d Group 2) 0.2 mL, Intradermal, As needed, Line Car e Starting 08/05/20 at 2034, For Peripheral Line. Midline & PICC Placements, and Accessing Ports lidocaine (XYLOCAINE) (1%) injection 0.2 mL(Linked Group 2) 0.2 mL, Intradermal, As needed, Line Car e Starting 08/05/20 at 2034, For Peripheral Line. Midline & PICC Placements, and Accessing Ports sodium chloride 0.9 % flush 10 mL(Linked Group 1) 10 mL, Intra-Catheter, As needed, Line C are Starting 08/05/20 at 2034, After IV medications. -For Port-A-Cath flush sodium chloride 0.9 % flush 20 mL(Linked Group 1) 20 mL, Intra-Catheter, As needed, Line C are, After blood sample AND/OR blood products Starting e 08/05/20 at 2034, -For Port-A-Cath flush sodium chloride 0.9 % infusion 25 mL at 100 mL/hr, Intracatheter, As needed, Line Care, Starting 08/05/20 at 2034, For IV infusion medications, flush IV line [...] Intra-Catheter, As needed, Line C are Starting 08/05/20 at 2034
After IV medications. -For Port-A-Cath flush
And sodium chloride 0.9 % flush 10 mLJump to med 10 mL, Intra-Catheter, Every 8 hours F irst dose on Tue08/06/20 at 0000
-For Port-A-Cath flush
And heparin lock flush (porcine) (100 unit/mL) flush 500 UnitsJump to med 500 Units (5 mL), Intra-Catheter, As nee ded, Line Care, Only use prior to de- access Starting Tue08/05/20 at 2035
Only use prior to de-access. -For Port-A-Cath flush
And sodium chloride 0.9 % flush 20 mLJump to med 20 mL, Intra-Catheter, As needed, Line C are, After blood sample AND/OR blood products Starting Tue08/05/20 at 2035
-For Port-A-Cath flush
Group 2: lidocaine (PF) (XYLOCAINE) 10 mg/mL (1 %) injection 0.2 mLJump to med 0.2 mL, Intradermal, As needed, Line Car e Starting Tue08/05/20 at 2035
For Peripheral Line. Midline & PICC Placements, and Accessing Ports
Or lidocaine (XYLOCAINE) (1%) injection 0.2 mLJump to med 0.2 mL, Intradermal, As needed, Line Car e Starting Tue08/05/20 at 2035
For Peripheral Line. Midline & PICC Placements, and Accessing Ports
documented in this encounter
--- OUTSIDE RECORDS SUMMARY | 2022-07-24 16:40 | External Medical Summary | Summary of Care ---
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
--- OUTSIDE RECORDS SUMMARY | 2022-07-24 16:40 | External Medical Summary | Summary of Care ---
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
--- OUTSIDE RECORDS SUMMARY | 2022-07-24 16:40 | External Medical Summary | Summary of Care ---
:1985 Author Organization [facility] Address [address] [place] [address]- Encounter FNBR [id number] Date(s): 03/07/19 - 03/07/19 [facility] [address] [place] [address]- [facility]
--- OUTSIDE RECORDS SUMMARY | 2022-07-24 16:41 | External Medical Summary | Encounter Summary ---
:1985 Author Organization [facility] nter Address [address] [place] [address] Care Team Providers Name Role Phone Unavailable Primary Care Provider Unavailable Reason for Visit Reason Comments Emesis Encounter Details Date Type Department Care Team Description 06/12/2020 Emergency [facility] Shukri Schrader, Gastroparesis (Primary Dx); [address] ROSALIO (acute kidney injury) ([facility]); [place] [address] Dehydration; [phone] [place] Hyperglycemia due to type 1 diabetes beth litus (HCC) [place] [address] Social History Tobacco Use Types Packs/Day Years [...] Sign Reading Time Taken Comments Blood Pressure 184/114 06/12/2020 11:38 PM PST Pulse 123 06/12/2020 6:55 PM PST Temperature 36.9 C (98.4 F) 06/12/2020 11:43 PM PST Respiratory Rate 20 06/12/2020 11:43 PM PST Oxygen Saturation 96% 06/12/2020 9:40 PM PST Inhaled Oxygen Concentration - - Weight - - Height - - Body Mass Index - - documented in this encounter Discharge Instructions Discharge InstructionsShukri Schrader MD - 06/12/2020 11:36 PM PST Images from the original note were not included. Follow up physician noted above Fluids zofran or phenergen for nausea Return to ER if worse: vomiting, high sugars, pain, reconsider admission to hospital. Please see Dr. Flores in follow up early next week. Diabetes with High Blood Sugar You have been treated for high blood sugar (hyperglycemia). This may be because of an infection or other illness. Or it may be from eating too many sweets or starches. Or it may be from not taking enough insulin or other diabetes medicine. Home care Check your blood sugar level at least 2 times a day. Write it down the results. Do this before breakfast and before dinner. If you take insulin, also write down your routine insulin dose. Note any other doses you needed based on your sliding scale or as advised by your healthcare provider. Do this forthe next 3 to 5 days. High blood sugar may cause symptoms that you can learn to spot. These include: Peeing often Thirst Headache Breath that smells fruity Nausea or vomiting Belly pain If you have symptoms of high blood sugar, use a blood or urine test to find out what your blood sugar level is. If it is above your usual range, use the sliding scale regular insulin dose from your healthcare provider. Call your provider for advice if you were not given a range for your insulin dose. If your blood sugar is over 240 mg/dL, check your urine for ketones. Follow-up care Follow up with your healthcare provider, or as advised. You may need to meet with your provider in the next week. You will likely look at your blood sugar records together. You may need to change your dose of insulin or other diabetes medicine. When to seek medical advice Call your healthcare provider right away if these occur: Symptoms of high blood sugar that don't get better with the treatment your provider advised. Thisis especially true if you also have ketones in your urine. Blood sugar over 300 mg/dl. If you cant reach your healthcare provider, go to a hospital emergency room or urgent care center. Call 911 Call 911 if you have any of the following: Confusion Dizziness, lightheadedness, or loss of consciousness Shortness of breath Chest pain Weakness of an arm, leg, or one side of the face Sudden trouble with speech or vision StayWell last reviewed this educational content on 03/18/201819993219-7508 [employer]. All rights reserved. This information is not intended as a substitute for professional medical care. Always follow your healthcare professional's instructions. Dehydration (Adult) Dehydration occurs when your body loses too much fluid. This may be the result of prolonged vomitingor diarrhea, excessive sweating, or a high fever. It may also happen if you dont drink enough fluid when youre sick or out in the heat. Misuse of diuretics (water pills) can also be a cause. Symptoms include thirst, decreased urine output, and darker colored urine. You may also feel dizzy, weak, fatigued, or very drowsy. The diet described below is usually enough to treat dehydration. In some cases, you may need medicine. Home care Drink at least 12, 8-ounce glasses of fluid every day to resolve the dehydration. Fluid may include water; orange juice; lemonade; apple, grape, or cranberry juice; clear fruit drinks; electrolyte replacement and sports drinks; and teas and coffee without caffeine. Don't drink alcohol. If you have been diagnosed with a kidney disease, ask your doctor how much and what types of fluids you should drink to prevent dehydration. If you have kidney disease, fluid can build up in the body. This can be dangerous to your health. If you have a fever, muscle aches, or a headache as a result of a cold or flu, you may take acetaminophen or ibuprofen, unless another medicine was prescribed. If you have chronic liver or kidney disease, or have ever had a stomach ulcer or gastrointestinal bleeding, talk with your healthcare provider before using these medicines. Don't take aspirin if you are younger than 18 and have a fever. In children with fever, aspirin raises the chance for severe liver injury and . Follow-up care Follow up with your healthcare provider, or as advised. When to seek medical advice Call your healthcare provider right away if any of these occur: Continued vomiting Frequent diarrhea (more than 5 times a day); blood (red or black color) or mucus in diarrhea Swollen abdomen or increasing abdominal pain Reduced urine output or extreme thirst Fever of 100.4F (38C) or higher Call 911 Call 911 or get medical care right away if you have any of the following: Weakness, dizziness, or fainting Unusual drowsiness or confusion Blood in vomit or stool StayWell last reviewed this educational content on 06/17/201919998984-2554 [employer] All rights reserved. This information is not intended as a substitute for professional medical care. Always follow your healthcare professional's instructions. documented in this encounter Medications at Time of Discharge Medication Sig Dispensed Refills Start Date End Date atorvastatin Take 40 mg by mouth 0 (LIPITOR) 40 MG nightly tablet carvediloL (COREG) Take 1 tablet 60 tablet 0 08/11/2019 3.125 MG tablet (3.125 mg total) by mouth 2 (two) times daily with meals cloNIDine apply 1 patch 0 01/14/2020 (CATAPRES-TTS) 0.2 topically every mg/24 hr week fluvoxaMINE (LUVOX) Take 100 mg by 0 50 MG tablet mouth nightly furosemide (LASIX) 20 take 1 tablet by 0 11/30/19 20 MG tablet mouth once daily if needed for EDEMA/HYPERTENSIO.. . (REFER TO PRESCRIPTION NOTES). gabapentin Take 600 mg by 0 (NEURONTIN) 300 MG mouth 3 (three) capsule times daily insulin lispro Inject into the skin as needed 12am-2am 0 (INSULIN PUMP, Basal 1.2, correct factor 1:45, carb ratio 1:13, targe t 120 PATIENT'S OWN,) 2am-7am Basal 0.7, correct factor 1:45, carb ratio 1:13, target 14 0 7am-12am Basal 1.2, correct factor 1:45, carb ratio 1:13, target 12 0 lisinopriL Take 5 mg by mouth 0 11/30/2019 (PRINIVIL,ZESTRIL) 5 MG tablet LORazepam (ATIVAN) Take 0.5 mg by 0 0.5 MG mouth 3 (three) tabletIndications: times daily as panic attack needed for Anxiety Indications: panic attack melatonin 10 mg Tab Take by mouth 0 nightly as needed multivitamin Take 1 tablet by 0 (MULTIVITAMIN) tablet mouth nightly omeprazole (PRILOSEC) take 1 capsule by 0 020 20 MG capsule mouth twice a day BEFORE BREAKFAST AND DINNER FOR 90 DAYS ondansetron dissolve 1 tablet 0 03/28/2020 (ZOFRAN-ODT) 4 MG ON TONGUE every 6 disintegrating tablet hours if needed for nausea promethazine Inject 12.5 mg into 0 10/04/2019 (PHENERGAN) 25 mg/mL the muscle every 6 injection (six) hours as needed senna (SENOKOT) 8.6 Take 8.6 mg by 0 mg tablet mouth nightly as needed for Constipation tadalafil (CIALIS) 10 Take 5 mg by mouth 0 MG tablet nightly UNABLE TO FIND 50 mg by Nasal 0 route 3 (three) times daily as needed Ketamine 50 mg/ml, 1-2 sprays into each nostril TID PRN nausea and vomitting ondansetron (ZOFRAN) Take 1 tablet (4 mg 12 tablet 0 201906/19/2020 4 MG tablet total) by mouth every 6 (six) hours for [address] 1 suppository 12 suppository 0 06/12/2020 06/19/2020 (PHENERGAN) 25 MG (25 mg total) suppository rectally every 6 (six) hours as needed for up to 7 days for Nausea documented as of this encounter ED Notes Katiana Strickland RN - 06/12/2020 11:39 PM PST ED NOTE: Zeke reports he takes his BP meds at night. Will take them when he gets home. Able to tolerate ice chips. Will return with worsening sx. Will call uber home Katiana Strickland RN - 06/12/2020 11:33 PM PST ED NOTE: Patient on the call light. States he is ready to go home. aware. Katiana Strickland RN - 06/12/2020 11:25 PM PST ED NOTE: Spoke with patient's . States he typically needs 25 of phenergan and 50 of diphenhydramine to help. He uses IM phenergan at home that isn't very effective. He typically recieves 3L of fluids (warm) Katiana Strickland RN - 06/12/2020 8:28 PM PST ED NOTE: Patient vomiting in the room. Will give phenergan more time to work. Shukri Schrader MD - 06/12/2020 8:09 PM PST Images from the original note were not included. CHIEF COMPLAINT: Chief Complaint Patient presents with Emesis Arrival Method: Wheelchair Escorted by: Self Primary Care Provider: No primary care provider on file.. This is a 34 y.o. male who presents with hx of IDDM and vomiting since yesterday morning. More than 10x. Hx of gastroparesis. IV fluids, zofran, phenergen. May 22 similar presentation. Glucose: 184. No fevers, no cough, no shortness of breath. NO rhinorrhea. NO pain with urination. "about the same" frequency. Feels like "gastroparesis. 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 He gets these attacks usually 2x/month. Usually goes to or in [facility]. Highest creatine: "4 something" "always comes down on its own" Past Medical History: Past Medical History: Diagnosis Date Anxiety Diabetes mellitus (HCC) Gastroparesis Hypertension Neuropathy Renal disorder Type 1 diabetes mellitus with autonomic neuropathy (HCC) History reviewed. No pertinent surgical history. Medications: Discharge Medication List as of 06/12/2020 11:36 PM CONTINUE these medications which have NOT [...] tablet Take 5 mg by mouth, Starting Tue11/30/2019, Historical Med LORazepam (ATIVAN) 0.5 MG tablet [...] every 6 (six) hours as needed, Starting [facility] 10/04/2019, Historical Med senna (SENOKOT) 8.6 mg [...] use: Never Frequency: Never REVIEW OF SYSTEMS: CONSTITUTIONAL : No fever. CARDIOVASCULAR : No chest pain, RESPIRATORY : No Cough, No SOB. GI : Vomiting, per HPI : no hematuria, no dysuria MUSCULOSKELETAL : no injury or joint pain SKIN : No rash. HEME : No easy bleeding. PSYCH : No anxiety. Endocrine: DM, elevated gucose NEUROLOGIC : No headache, mental status per above PHYSICAL EXAM: ED Triage Vitals Temp Heart Rate Resp BP SpO2 SPO2 Pulse Rate Pain Score 06/12/20185406/12/20185406/12/20185406/12/20185406/12/20185406/12/201917 -- 37.2 C (98.9 F) 123 14 (!) 166/105 100 % 102 ED Encounter Vitals Date and Time Temp Pulse Resp BP SpO2 SPO2 Pulse Rate ID 06/12/201854 37.2 C (98.9 F) 123 14 166/105 100 % -- 06/12/201917 -- -- 22 167/99 98 % 102 06/12/202112 -- -- 18 175/102 99 % 98 06/12/202139 -- -- -- -- 96 % 94 EE 06/12/20 2338 -- -- -- 184/114 -- -- EEH 06/12/20 2343 36.9 C (98.4 F) -- -- -- 95 EEH GENERAL : Patient is afebrile, Vital signs reviewed, conversant, no distress, pale HEAD : Normocephalic, Atraumatic EYES : Normal to inspection ENT : OP moist. Normal Ear inspection. NECK : Supple , normal inspection. No JVD. Normal Range of Motion. No meningismis. CARD : Regular rate and rhythm, heart sounds normal. RESP : No respiratory distress, breath sounds normal. ABD : No epigastric abdominal pain noted, no distension, No guarding, no rebound tenderness, soft, BACK : Non-tender. No CVA tenderness. MUSC : Normal ROM, non-tender, no pedal edema. SKIN : Color normal, warm, dry. NEURO : no new focal deficits PSYCH : Mood/affect normal. ASSESSMENT: Mauri Levine presents with hx of diabetic gastroparesis, renal insufficiency and now with recurrent vomiting and dehydration. Most likely diabetic gastroparesis. Fluids to be administered, labs and dka to be exclude.. No evidence for fevers, focal abdominal pain, bloody stools. Mild dehydration is present and will be treated with IV fluids and antiemetic Abd examination is benign without focal findings to suggest colitis Unlikely pancreatitis with history No hx of inflammatory bowel No obstruction No trauma Also no evidence of hypogastric causes: such as appendicitis, diverticulitis, colitis. No urinary complaints of pain, burning, nor evidence of renal involvement. (pyelonephritis, renal colic) Laboratory testing to be performed including cbc, FP, lipase, and urine dip. Evaluation of hepatitis with LFTS Serial examinations to be performed during observation in ED. Results Labs: Recent Results (from the past 24 hour(s)) CBC With Auto Differential Collection Time: 06/12/20 8:08 PM Result Value Ref Range White Blood Cells 13.9 (H) 3.8 - 11.0 k/ul RBC 4.36 4.20 - 5.70 M/uL Hemoglobin 12.5 (L) 13.2 - 17.0 g/dL Hematocrit 37.5 (L) 39.0 - 50.0 % MCV 85.9 80.0 - 100.0 fL MCH 28.7 27.0 - 34.0 pg MCHC 33.3 32.0 - 35.5 g/dL RDW 13.9 11.0 - 15.5 % Platelet Count 322 150 - 400 K/uL MPV 8.8 7.0 - 11.3 fL nRBC(auto) 0.0 0.0 - 2.0 /100 WBC Neutrophils % (Auto) 85.4 % Lymphocytes % 7.3 % Monocytes % (Auto) 7.1 % Eosinophils % 0.0 % Basophils % 0.3 % Absolute Neutrophils 11.9 (H) 1.9 - 7.4 k/uL Absolute Lymphocytes 1.0 1.0 - 3.9 k/uL Absolute Monocytes 1.0 (H) 0.0 - 0.8 k/uL Absolute Eosinophils 0.0 0.0 - 0.5 k/uL Absolute Basophils 0.0 0.0 - 0.1 k/uL Comprehensive metabolic panel Collection Time: 06/12/20 8:08 PM Result Value Ref Range Glucose 191 (H) 65 - 99 mg/dL BUN 42 (H) 7 - 18 MG/DL Creatinine 3.24 (H) 0.70 - 1.30 mg/dL eGFR 22 m/m/1.73 Sodium 136 136 - 145 mmol/L Potassium 2.9 (L) 3.5 - 5.1 mmol/L Chloride 90 (L) 98 - 107 mmol/L CO2 39 (H) 21 - 32 mmol/L Anion Gap 7 5 - 16 mmol/L Calcium 9.8 8.5 - 10.1 mg/dL Total Protein 8.9 (H) 6.4 - 8.2 G/DL Albumin 4.3 3.4 - 5.0 G/DL Bilirubin Total 0.4 0.2 - 1.0 mg/dL Alkaline Phosphatase 129 (H) 45 - 117 U/L AST (SGOT) 16 15 - 37 U/L ALT (SGPT) 14 (L) 16 - 61 U/L Lipase Collection Time: 06/12/20 8:08 PM Result Value Ref Range Lipase 26 (L) 73 - 393 U/L Beta-Hydroxybutyric Acid Collection Time: 06/12/20 8:08 PM Result Value Ref Range Beta Hydroxybutyryric Acid 1.23 (HH) <0.30 mmol/L Urinalysis Collection Time: 06/12/20 10:02 PM Result Value Ref Range UA Color Yellow Yellow UA Appearance Cloudy (!) Clear UA Glucose 150 (!) Negative mg/dL UA Bilirubin Negative Negative UA Ketones Negative Negative mg/dL UA Specific [place] 1.020 1.001 - 1.030 UA Blood Moderate (!) Negative UA pH 5.0 5.0 - 8.0 UA Protein >300 (!) Negative mg/dL UA Nitrite Negative Negative UA Leukocyte Esterase Negative Negative UA WBC 0-5 0 - 5 /HPF UA RBC 3-5 (!) 0 - 2 /HPF UA Squamous Epithelial Cells 0-5 0 - 5 UA Mucus 1+ UA Hyaline Casts >25 (!) 0 - 2 /LPF I-STAT VBG+/LACTATE Collection Time: 06/12/20 10:52 PM Result Value Ref Range pH Venous 7.587 (H) 7.310 - 7.410 pCO2 Venous 41.0 40.0 - 52.0 mmHg pO2 Venous 55.0 (H) 30.0 - 50.0 mmHg HCO3, [place] 39.1 (H) 22.0 - 27.0 mmol/L Base Excess, [place] 17.0 (H) -3.0 - 3.0 mmol/L O2 Sat, [place] 92.0 92.0 - 98.0 % Lactate, Venous 0.77 0.40 - 2.00 mmol/L Imaging Ultrasound kidneys and bladder complete Final Result by Martinez Villalpando MD (06/12 2227) No hydronephrosis. RADIA Dictated By: Kwasi Henriquez MD 2020-06-12 22:26:28.847 Signed By: Kwasi Henriquez MD 2020-06-12 22:27:30.0 Transcribed By: Kwasi Henriquez 2020-06-12 22:27:30.51 Referring Provider Line: [phone] SITE ID: [id number] Medications, medical history, allergies, surgical history, hospitalizations, family history, social history, ROS and vitals entered by nursing staff and reviewed by myself. EMERGENCY DEPARTMENT COURSE: Medications given in ED: Medications sodium chloride 0.9 % infusion 1,000 mL (0 mLs Intravenous Stopped 06/12/202226) ondansetron (ZOFRAN) 4 mg/2 mL injection 4 mg (4 mg Intravenous Given 06/12/202017) sodium chloride 0.9 % infusion 1,000 mL (0 mLs Intravenous Stopped 06/12/202200) ondansetron (ZOFRAN) 4 mg/2 mL injection 4 mg (4 mg Intravenous Given 06/12/202233) Labs: Wbc: 13.9, Glucose: 191, creatine: 3.24 (he has been 4 in the past simlar 1month ago) C02: 39, K: 2.9, lipase: 26 Urine: no ketones Serum keton: 1.23 Vb.587, hc02: 39, lactate noral Imaging: Patient improved in ED after medications with fluids, phenergen and zofran. I reviewed his prior evaluations and renal insufficiency is chronic and often elevated during these presentations. He saw warp coiler just this last week He had some persistent vomiting and I recommended admission. He ultimately declined this and wanted to go home with scripts. RN spoke with to come get him and said regarding his creatine that "he gets much worse than 3.2" RTER precautions zoraidaien. 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 Renal u/s: no obstruction I discussed with the patient the diagnosis, treatment plan, indications for return to the emergency department, and for expected follow-up. The patient verbalized an understanding. The patient is askedif there are any questions or concerns. We discuss the case, until all issues are addressed to the patient's satisfaction. Follow up plan per discharge instructions including return to the emergency department in next 12-24hrs if increasing symptoms, pain, fevers or concerns. Primary care follow up in next 48 hrs if not improved Diagnosis: 1. Gastroparesis 2. ROSALIO (acute kidney injury) (HCC) 3. Dehydration 4. Hyperglycemia due to type 1 diabetes mellitus (HCC) . Follow up: Kwame Flores MD [address] [facility] [id number] In 2 days Your doctors at . Medications on Discharge Discharge Medication List as of 06/12/2020 11:36 PM START taking these medications Details ondansetron (ZOFRAN) 4 MG tablet Take 1 tablet (4 mg total) by mouth every 6 (six) hours for 7 days,Starting Jihan 06/12/2020, Until Jihan 06/19/2020, Print promethazine (PHENERGAN) [address] 1 suppository (25 mg total) rectally every 6 (six) hours as needed for up to 7 days for Nausea, Starting Jihan 06/12/2020, Until Jihan 06/19/2020, Print DISPOSITION: The patient is in stable condition on discharge. ED Visit Patient roomed in ED 06/12/20 6571 SHUKRI SCHRADER MD Attending Physician [facility] Shukri Schrader MD 06/13/20 1325 Katiana Strickland RN - 06/12/2020 7:43 PM PST ED NOTE: IV therapy at bedside with Ultrasound. Khari Franks RN - 06/12/2020 7:18 PM PST IV therapy paged for difficult vascular access. Heather Jain RN - 06/12/2020 6:52 PM PST Patient reports vomiting going on for two days. History of gastroparesis secondary to Type 1 DM. Reports current BG 184 Has been seen for this before and reports success with IV fluids, zofran and phenegran. documented in this encounter Miscellaneous Notes MALLORY-Visit History - Mallory Interface Model - 06/12/2020 6:39 PM PST Mallory has no Care Guidelines for this patient. Prescription Review PDMP Report (previous six months). Fill Date Drug Description Qty. Prescriber CS MED --------- ---- -- --- 2020-02-01 OXYCODONE HCL 5 MG TABLET 12 KLEBER KIM MD 2 30.0 12 Month Prescription Summary -Number of CS Rx:1 -Number of CS-II Rx:1 -Total dispensed quantity:13 -Unique Prescribers:2 -Unique Pharmacies:2 -Opioid Rx Count:1 -Long Acting Opioid Rx Count:0 -Benzo Rx Count:0 ED/UCC VISIT TRACKING (3 MO.) 06/12/2020 18:39 Sid [place] TYPE: Emergency DIAGNOSES: - NAUSEA,DEHYDRATION 05/22/2020 19:09 Sid [place] TYPE: Emergency DIAGNOSES: - Generalized abdominal pain - vomiting, dehyration - Emesis - Nausea with vomiting, unspecified - Gastroparesis 05/14/2020 19:54 Sid [place] TYPE: Emergency DIAGNOSES: - Acute kidney failure, unspecified - VOMITING, DEHYDRATION - Dehydration - Gastroparesis - Emesis - Nausea with vomiting, unspecified 04/28/2020 13:01 Sid [place] TYPE: Emergency DIAGNOSES: - EMESIS; DEHYDRATION - Nausea with vomiting, unspecified - EMESIS 04/04/2020 08:37 Sid [place] TYPE: Emergency DIAGNOSES: - Nausea with vomiting, unspecified - Dehydration - Emesis - EMESIS; DEHYDRATION - Dehydration INPATIENT VISIT TRACKING (1 MO.) No inpatient visits to display in this time frame E.D. VISIT COUNT (12 MO.) 5 [place] [facility]. 0 Medicaid [place] Dx 2 [facility] H. 0 Medicaid [place] Dx 1 [facility] 0 Medicaid [place] Dx TOTAL 8 TOTAL MEDICAID NE DX 0 NOTE: Visits indicate total known visits. Medicaid [place] Dx are the number of primary diagnoses on the [facility] non-emergent dx list. CARE PROVIDERS KWAME FLORES [facility] Current PHONE: [phone] CLAUDIA SIEGEL L, Nurse Practitioner: Psychiatric/Mental Health Current WENDY Serrano PHONE: Unknown [facility] Primary Care Current PHONE: [facility] Chrissy Astorga PHONE: [phone] [facility]ENT[facility] ONLY Primary Care Current PHONE: [phone] [email or web address] Security Events No recent Security Events currently on file documented in this encounter Plan of Treatment Not on filedocumented as of this encounter Procedures Procedure Name Priority Date/Time Associated Comments Diagnosis I-STAT VBG+/LACTATE Routine 06/12/2020 10:52 Resu lts for this PM PST procedure are i n the results section. URINALYSIS WITH STAT 06/12/2020 10:02 Results for this REFLEX TO CULTURE IF PM PST procedu re are in INDICATED the results section. US KIDNEYS AND STAT 06/12/2020 9:51 Results fo r this BLADDER COMPLETE PM PST procedure a re in the results section. BETA-HYDROXYBUTYRIC STAT Add-On 06/12/2020 8:08 Resul ts for this ACID PM PST procedure are i n the results section. CBC WITH AUTO STAT 06/12/2020 8:08 Results for this DIFFERENTIAL PM PST procedure are i n the results section. LIPASE STAT 06/12/2020 8:08 Results for this PM PST procedure are i n the results section. COMPREHENSIVE STAT 06/12/2020 8:08 Results for this METABOLIC PANEL PM PST procedure ar e in the results section. documented in this encounter Results (ABNORMAL) I-STAT VBG+/LACTATE (06/12/2020 10:52 PM PST) Analysis Performed At Patho logist Time Signature pH Venous 7.587 (H) 7.310 - 06/12/2020 [facility] 7.410 10:57 PM PST pCO2 Venous 41.0 40.0 - 06/12/2020 [facility] 52.0 mmHg 10:57 PM PST pO2 Venous 55.0 (H) 30.0 - 06/12/2020 [facility] 50.0 mmHg 10:57 PM PST HCO3, [place] 39.1 (H) 22.0 - 06/12/2020 [facility] 27.0 10:57 PM PST mmol/L Base Excess, 17.0 (H) -3.0 - 3.0 06/12/2020 [facility] [place] mmol/L 10:57 PM PST O2 Sat, [place] 92.0 92.0 - 06/12/2020 [facility] 98.0 % 10:57 PM PST Lactate, 0.77 0.40 - 06/12/2020 [facility] Venous 2.00 10:57 PM PST mmol/L Specimen Anatomical Collection Method Collection Time Receive d Time (Source) Location / / Volume Laterality Blood specimen 06/12/2020 10:52 0 (specimen) PM PST 10:57 PM PST (Blood) Poct Results Unsolicted POCT ORDERABLES - DEVICE Performing Organization Address City/State/ZIP Code Phon e Number [facility] [address] [place] [address] (ABNORMAL) Urinalysis (06/12/2020 10:02 PM PST) [facility] Method Time Signature UA Color Yellow Yellow 06/12/2020 [facility] 10:32 PM PST UA Appearance Cloudy (A) Clear 06/12/2020 [facility] 10:32 PM PST UA Glucose 150 (A) Negative 06/12/2020 [facility] mg/dL 10:32 PM PST UA Bilirubin Negative Negative 06/12/2020 [facility] 10:32 PM PST UA Ketones Negative Negative 06/12/2020 [facility] mg/dL 10:32 PM PST UA Specific 1.020 1.001 - 06/12/2020 [facility] [place] 1.030 10:32 PM PST UA Blood Moderate (A) Negative 06/12/2020 [facility] 10:32 PM PST UA pH 5.0 5.0 - 8.0 06/12/2020 [facility] 10:32 PM PST UA Protein >300 (A) Negative 06/12/2020 [facility] mg/dL 10:32 PM PST UA Nitrite Negative Negative 06/12/2020 [facility] 10:32 PM PST UA Leukocyte Negative Negative 06/12/2020 [facility] Esterase 10:32 PM PST UA WBC 0-5 0 - 5 /HPF 06/12/2020 [facility] 10:32 PM PST UA RBC 3-5 (A) 0 - 2 /HPF 06/12/2020 [facility] 10:32 PM PST UA Squamous 0-5 0 - 5 06/12/2020 [facility] Epithelial 10:32 PM Cells PST UA Mucus 1+ 06/12/2020 [facility] 10:32 PM PST UA Hyaline >25 (A) 0 - 2 /LPF 06/12/2020 [facility] Casts 10:32 PM PST Specimen Anatomical Collection Method Collection Time Receive d Time (Source) Location / / Volume Laterality Urine specimen 06/12/2020 10:02 0 (specimen) PM PST 10:12 PM PST (Urine) Shukri Schrader MD URINE ORDERABLES Performing Organization Address City/State/ZIP Code Phon e Number [facility] [address] [place] [address] Ultrasound kidneys and bladder complete (06/12/2020 9:51 PM PST) Anatomical Region Laterality Modality Abdomen Ultrasound Specimen (Source) Anatomical Collection Method Collection Time Re ceived Time Location / / Volume Laterality 06/12/2020 9:51 PM PST Impressions 06/12/2020 10:27 PM PST No hydronephrosis. RADIA Dictated By: Kwasi Henriquez MD 2020-06-12 22:26:28.847 Signed By: Kwasi Henriquez MD 2020-06-12 22 :27:30.0 Transcribed By: Kwasi Henriquez 2020-06-12 22:27:30.51 Referring Provider Line: [phone] SITE ID: [id number] Narrative 06/12/2020 10:27 PM PST EXAM: RENAL ULTRASOUND EXAM DATE: 06/12/2020 09:51 PM. CLINICAL HISTORY: Diabetic. Renal insuff iciency. Vomiting. COMPARISON: None. TECHNIQUE: Real-time scanning was perfor med with static images obtained. FINDINGS: Right Kidney: 10.6 x 5.3 x 5.4 cm. The r esistive index measures 0.67-0.72. Normal echotexture with no stones, contour-deforming masses, or hydronephrosis. Left Kidney: 11.0 x 5.2 x 5.1 cm. The re sistive index measures 0.62. Normal echotexture with no stones, contour-deforming masses, or hydronephrosis. Bladder: Only the left ureteral jet is s een. The prevoid bladder volume was 364 cc. The postvoid bladder volume was 28 cc. Other: None. Procedure Note Martinez Villalpando MD - 06/12/2020Formatti ng of this note might be different from the original. EXAM: RENAL ULTRASOUND EXAM DATE: 06/12/2020 09:51 PM. CLINICAL HISTORY: Diabetic. Renal insuff iciency. Vomiting. COMPARISON: None. TECHNIQUE: Real-time scanning was perfor med with static images obtained. FINDINGS: Right Kidney: 10.6 x 5.3 x 5.4 cm. The r esistive index measures 0.67-0.72. Normal echotexture with no stones, contour-deforming masses, or hydronephrosis. Left Kidney: 11.0 x 5.2 x 5.1 cm. The re sistive index measures 0.62. Normal echotexture with no stones, contour-deforming masses, or hydronephrosis. Bladder: Only the left ureteral jet is s een. The prevoid bladder volume was 364 cc. The postvoid bladder volume was 28 cc. Other: None. IMPRESSION: No hydronephrosis. RADIA Dictated By: Kwasi Henriquez MD 2020-06-12 22:26:28.847 Signed By: Kwasi Henriquez MD 2020-06-12 22 :27:30.0 Transcribed By: Kwasi Henriquez 2020-06-12 22:27:30.51 Referring Provider Line: [phone] SITE ID: [id number] Shukri Schrader MD [facility] US ORDERABLES (ABNORMAL) Beta-Hydroxybutyric Acid (06/12/2020 8:08 PM PST) [facility] gist Method Time Signature Beta 1.23 (HH) <0.30 06/12/2020 [facility] Hydroxybutyryric mmol/L 9:48 PM PST Acid Specimen Anatomical Collection Method Collection Time Receive d Time (Source) Location / / Volume Laterality Blood specimen Line / Unknown 06/12/2020 8:08 PM 06/12 8:19 (specimen) PST PM PST Shukri Schrader MD LAB BLOOD ORDERABLES Performing Organization Address City/State/ZIP Code Phon e Number [facility] [address] [place] [address] (ABNORMAL) Lipase (06/12/2020 8:08 PM PST) athologist Signature Lipase 26 (L) 73 - 393 U/L 06/12/2020 [facility] 8:43 PM PST Specimen Anatomical Collection Method Collection Time Receive d Time (Source) Location / / Volume Laterality Blood specimen Line / Unknown 06/12/2020 8:08 PM 06/12 8:19 (specimen) PST PM PST Shukri Schrader MD LAB BLOOD ORDERABLES Performing Organization Address City/State/ZIP Code Phon e Number [facility] [address] [place] [address] (ABNORMAL) Comprehensive metabolic panel (06/12/2020 8:08 PM PST) athologist Signature Glucose 191 (H) 65 - 99 06/12/2020 [facility] mg/dL 8:43 PM PST BUN 42 (H) 7 - 18 06/12/2020 [facility] MG/DL 8:43 PM PST Creatinine 3.24 (H) 0.70 - 1.30 06/12/2020 [facility] mg/dL 8:43 PM PST Comment: This result represents a signif icant change from the previous value. Please correlate with the Patient's clinical co ndition. eGFR 22 m/m/1.73 06/12/2020 8:43 PM [facility] Comment: GFR < 60: Chronic kidney disease if foun d over a 3 month period. Patient race not entered. If patient i s multiply the calculated GFR by 1.21 Sodium 136 136 - 145 mmol/L 06/12/2020 8:43 PM [facility] Potassium 2.9 (L) 3.5 - 5.1 mmol/L 06/12/2020 8:43 PM [facility] Chloride 90 (L) 98 - 107 mmol/L 06/12/2020 8:43 PM PST [facility] CO2 39 (H) 21 - 32 mmol/L 06/12/2020 8:43 PM PST [facility] Anion Gap 7 5 - 16 mmol/L 06/12/2020 8:43 PM PST [facility] Calcium 9.8 8.5 - 10.1 mg/dL 06/12/2020 8:43 PM [facility] Total Protein 8.9 (H) 6.4 - 8.2 G/DL 06/12/2020 8:43 PM PS T [facility] Albumin 4.3 3.4 - 5.0 G/DL 06/12/2020 8:43 PM [facility] Bilirubin Total 0.4 0.2 - 1.0 mg/dL 06/12/2020 8:43 PM [facility] Alkaline Phosphatase 129 (H) 45 - 117 U/L 06/12/2020 8:43 PM [facility] AST (SGOT) 16 15 - 37 U/L 06/12/2020 8:43 PM [facility] ALT (SGPT) 14 (L) 16 - 61 U/L 06/12/2020 8:43 PM [facility] Specimen Anatomical Collection Method Collection Time Receive d Time (Source) Location / / Volume Laterality Blood specimen Line / Unknown 06/12/2020 8:08 PM 06/12 8:19 (specimen) PST PM [facility] Narrative [facility] - 06/12/2020 8:43 PM [facility] Glucose Reference Range : ADA 2012 Diagnostic Categories for nonpr egnant adults: Impaired fasting glucose 100-125 mg/dL A fasting glucose result of 126 mg/dL or greater indicates diabetes if the abnormality is confirmed on a subsequent day. A random glucose of 200 mg/dL or greater in a patient with symptoms of hyperglycemia or hyperglycemic crisis, indicates diabetes. Shukri Schrader MD LAB BLOOD ORDERABLES Performing Organization Address City/State/ZIP Code Phon e Number [facility] [address] [place] [address] [phone] (ABNORMAL) CBC With Auto Differential (06/12/2020 8:08 PM PST) [facility] gist Method Time Signature White Blood 13.9 (H) 3.8 - 11.0 06/12/2020 [facility] Cells k/ul 8:25 PM PST RBC 4.36 4.20 - 06/12/2020 [facility] 5.70 M/uL 8:25 PM PST Hemoglobin 12.5 (L) 13.2 - 06/12/2020 [facility] 17.0 g/dL 8:25 PM PST Hematocrit 37.5 (L) 39.0 - 06/12/2020 [facility] 50.0 % 8:25 PM PST MCV 85.9 80.0 - 06/12/2020 [facility] 100.0 fL 8:25 PM PST MCH 28.7 27.0 - 06/12/2020 [facility] 34.0 pg 8:25 PM PST MCHC 33.3 32.0 - 06/12/2020 [facility] 35.5 g/dL 8:25 PM PST RDW-CV 13.9 11.0 - 06/12/2020 [facility] 15.5 % 8:25 PM PST Platelet Count 322 150 - 400 06/12/2020 [facility] K/uL 8:25 PM PST MPV 8.8 7.0 - 11.3 06/12/2020 [facility] fL 8:25 PM PST nRBC(auto)% 0.0 0.0 - 2.0 06/12/2020 [facility] /100 WBC 8:25 PM PST Neutrophils % 85.4 % 06/12/2020 [facility] (Auto) 8:25 PM PST Lymphocytes % 7.3 % 06/12/2020 [facility] 8:25 PM PST Monocytes % 7.1 % 06/12/2020 [facility] (Auto) 8:25 PM PST Eosinophils % 0.0 % 06/12/2020 [facility] 8:25 PM PST Basophils % 0.3 % 06/12/2020 [facility] 8:25 PM PST Absolute 11.9 (H) 1.9 - 7.4 06/12/2020 [facility] Neutrophils k/uL 8:25 PM PST Absolute 1.0 1.0 - 3.9 06/12/2020 [facility] Lymphocytes k/uL 8:25 PM PST Absolute 1.0 (H) 0.0 - 0.8 06/12/2020 [facility] Monocytes k/uL 8:25 PM PST Absolute 0.0 0.0 - 0.5 06/12/2020 [facility] Eosinophils k/uL 8:25 PM PST Absolute 0.0 0.0 - 0.1 06/12/2020 [facility] Basophils k/uL 8:25 PM PST Specimen Anatomical Collection Method Collection Time Receive d Time (Source) Location / / Volume Laterality Blood specimen Line / Unknown 06/12/2020 8:08 PM 06/12 8:19 (specimen) PST PM PST Shukri Schrader MD LAB BLOOD ORDERABLES Performing Organization Address City/State/ZIP Code Phon e Number [facility] [address] [place] [address] documented in this encounter Visit Diagnoses Diagnosis Gastroparesis - Primary ROSALIO (acute kidney injury) (HCC) Dehydration Hyperglycemia due to type 1 diabetes beth litus (HCC) documented in this encounter Administered Medications Inactive Administered Medications - up to 3 most recent administrations Medication Order MAR Action Action Date Dose Rate Site ondansetron (ZOFRAN) 4 mg/2 mL Given 06/12/2020 8:18 PM PST 4 mg injection 4 mg 4 mg, Intravenous, Once On Jihan 06/12/20 at 2010, For 1 dose, If ordered IV route: may give undiluted by slow IV push over 1/2 to 2 minutes ondansetron (ZOFRAN) 4 mg/2 mL injection 4 mg Given 06/12/2020 10:34 PM PST 4 mg 4 mg, Intravenous, Once On Jihan 06/12/20 at 2227, For 1 dose, If ordered IV route: may give undiluted by slow IV push over 1/2 to 2 minutes promethazine (PHENERGAN) injection 12.5 mg Given 06/12/2020 8:22 PM PST 12.5 mg 12.5 mg, Intravenous, Every 6 hours PRN, if adequate IV for IV push Starting on Jihan 06/12/20 at 2014 promethazine (PHENERGAN) injection 12.5 mg 12.5 mg, Intravenous, Every 6 hours PRN, if adequate IV for IV push Starting on Jihan 06/12/20 at 2106 sodium chloride 0.9 % infusion New Bag 06/12/2020 8:12 PM PST 1,000 mLs 1000 mL/hr 1,000 mL at 1,000 mL/hr, Intravenous, Once, On Jihan 06/12/20 at 1929, For 1 dose, 1000mL sodium chloride 0.9 % infusion New Bag 06/12/2020 9:09 PM PST 1,000 mLs 1000 mL/hr 1,000 mL at 1,000 mL/hr, Intravenous, Once, On Jihan 06/12/20 at 2105, For 1 dose, 1000mL documented in this encounter Active and Recently Administered Medications Times are shown in PST. Scheduled Medication Order 06/10/2020 06/11/2020 06/12/2020 ondansetron (ZOFRAN) 4 mg/2 mL injection 4 mg (COMPLETED) 2017 (Given - Provider: Khari Franks RN) 4 mg, Intravenous, Once Jihan 06/12/20 at 2010, For 1 dose, If ordered IV route: may give undiluted by slow IV push over 1/2 to 2 minutes ondansetron (ZOFRAN) 4 mg/2 mL injection 4 mg (COMPLETED) 2233 (Given - Provider: Khari Franks RN) 4 mg, Intravenous, Once Jihan 06/12/20 at 222, For 1 dose, If ordered IV route: may give undiluted by slow IV push over 1/2 to 2 minutes sodium chloride 0.9 % infusion 1,000 mL (COMPLETED) 2011 (New Bag - Provider: Khari Franks RN)2226 (Stopped - Provider: Katiana Strickland RN) at 1,000 mL/hr, Intravenous, Once, Jihan 06/12/20 at 1929, For 1 d ose, 1000mL sodium chloride 0.9 % infusion 1,000 mL (COMPLETED) 2108 (New Bag - Provider: Khari Franks RN)2200 (Stopped - Provider: Khari Franks RN) at 1,000 mL/hr, Intravenous, Once, Jihan 06/12/20 at 2105, For 1 d ose, 1000mL PRN Medication Order 06/10/2020 06/11/2020 06/12/2020 promethazine (PHENERGAN) injection 12.5 mg 2021 (Given - Provider: Khari Franks RN) 12.5 mg, Intravenous, Every 6 hours PRN, if adequate IV for IV push Starting Jihan 06/12/20 at 2013 promethazine (PHENERGAN) injection 12.5 mg 12.5 mg, Intravenous, Every 6 hours PRN, if adequate IV for IV push Starting Jihan 06/12/20 at 2106 documented in this encounter
--- OUTSIDE RECORDS SUMMARY | 2022-07-24 16:41 | External Medical Summary | Encounter Summary ---
:1985 Author Organization [facility] nter Address [address] [place] [address] Care Team Providers Name Role Phone Unavailable Primary Care Provider Unavailable Reason for Visit Reason Comments Emesis Encounter Details Date Type Department Care Team Description 05/22/2020 Emergency [facility] EMERGENCY Jose R Connor Gastroparesis (Primary Dx); [address] MD Lucia Generalized abdominal pain; [place] [address] Non-intractable vomiting with nausea, un specified vomiting type [phone] [place], [place] [address] (Wo rk) Social History Tobacco Use Types [...] Sign Reading Time Taken Comments Blood Pressure 161/72 05/22/2020 9:10 PM PST Pulse - - Temperature 36.9 C (98.4 F) 05/22/2020 7:10 PM PST Respiratory Rate 16 05/22/2020 9:10 PM PST Oxygen Saturation 98% 05/22/2020 9:10 PM PST Inhaled Oxygen Concentration - - Weight 87.8 kg (193 lb 9 oz) 05/22/2020 7:10 PM PST Height - - Body Mass Index 30.32 08/11/2019 1:40 AM PST documented in this encounter Discharge Instructions Discharge InstructionsJose R Connor MD - 05/22/2020 9:31 PM PST Images from the original note were not included. Abdominal Pain Abdominal pain is pain in the stomach or belly area. Everyone has this pain from time to time. In many cases it goes away on its own. But abdominal pain can sometimes be due to a serious problem, such as appendicitis. So its important to know when to get help. Causes of abdominal pain There are many possible causes of abdominal pain. Common causes in adults include: Constipation, diarrhea, or gas Stomach acid flowing back up into the esophagus (acid reflux or heartburn) Severe acid reflux, called GERD (gastroesophageal reflux disease) A sore in the lining of the stomach or small intestine (peptic ulcer) Inflammation of the gallbladder, liver,or pancreas Gallstones or kidney stones Appendicitis Intestinal blockage An internal organ pushing through a muscle or other tissue (hernia) Urinary tract infections In women, menstrual cramps, fibroids, ovarian cysts, pelvic inflammatory disease, or endometriosis Inflammation or infection of the intestines, including Crohn's disease and ulcerative colitis Irritable bowel syndrome Diagnosing the cause of abdominal pain Your healthcare provider will give you a physical exam help find the cause of your pain. If needed, you will have tests. Belly pain has many possible causes. So it can be hard to find the reason for your pain. Giving details about your pain can help. Tell your provider where and when you feel the pain, and what makes it better or worse. Also let your provider know if you have other symptoms such as: Fever Tiredness Upset stomach (nausea) Vomiting Changes in bathroom habits Blood in the stool or black, tarry stool Weight loss that you can't explain (involuntary weight loss?) Also report any family history of stomach or intestinal problems, or cancers. Tell your provider about all your alcohol use and drug use. Tell your provider about all medicines you use, including herbs, vitamins, and supplements. Treating abdominal pain Some causes of pain need emergency medical treatment right away. These include appendicitis or a bowel blockage. Other problems can be treated with rest, fluids, or medicines. Your healthcare provider can give you specific instructions for treatment or self-care based on what is causing your pain. If you have vomiting or diarrhea,sip water or other clear fluids. When you are ready to eat solid foods again, start with small amounts of [id number], low- fat foods. These include apple sauce, toast, or crackers. When to get medical care Call 911or go to the hospital right away if you: Cant pass stool and are vomiting Are vomiting blood or have bloody diarrhea or black, tarry diarrhea Have chest, neck, or shoulder pain Feel like you might pass out Have pain in your shoulder blades with nausea Have sudden, severe belly pain Have new, severepain unlike any you have felt before Have a belly that is rigid, hard, and hurts to touch Call your healthcare provider if you have: Pain for more [id number] Bloating for more than 2days Diarrhea for more [id number] A fever of 100.4F (38C) or higher, or as directed by your healthcare provider Pain that gets worse Weight loss for no reason Continued lack of appetite Blood in your stool How to prevent abdominal pain Here are some tips to help prevent abdominal pain: Eat smaller amounts of food at each meal. Don't eat greasy, fried, or other high-fat foods. Don't eat foods that give you gas. Exercise regularly. Drink plenty of fluids. To help prevent GERD symptoms: Quit smoking. Reduce alcohol and foods that increase stomach acid. Don't use aspirin or eodx-bpl-vmdxlqe pain and fever medicines, if possible. This includes nonsteroidal anti-inflammatory drugs (NSAIDs). Lose excess weight. Finish eating at least 2 hours before you go to bed or lie down. Raise the head of your bed. [employer] last reviewed this educational content on 10/16/201819996147-1022 [employer], [employer]. [address] [place] [address], [place] [address]. All rights reserved. This information is not intended as a substitute for professional medical care. Always follow your healthcare professional's instructions. Gastroparesis Gastroparesis means that food and fluids move too slowly out of the stomach into the duodenum. Gastroparesis happens when the stomach takes longer [...] gastroparesis and how it can be managed. How gastroparesis develops With normal motility, signals [...] that are mashed or put through a dry primer powder blender. Plus, you may need to stay awayfrom [...] your health. For more information, contact the [place] [employer],www.diabetes.org. Long-term concerns With treatment, most people can manage their symptoms and keep up their usual routines. If your symptoms are moderate to severe, you may need to see your healthcare provider more often for checkups. Also, other treatments will likely be needed. [employer] last reviewed this educational content on 12/16/201819997872-3644 [employer]. [address] [place] [address], [place] [address]. All rights reserved. This information is not [...] documented as of this encounter ED Notes Jose R Connor MD - 05/22/2020 7:15 PM PST CHIEF COMPLAINT: Chief Complaint Patient presents with Emesis Notes: This is a 34 year old male with a history of type 1 diabetes, diabetic gastroparesis, diabetic kidney disease, and hypertension who presents with complaints of acute on chronic nausea and vomiting, with this most recent flare- up beginning yesterday. This flare-up is unresponsive to IM phenergan and feels similar to prior flare-ups of his gastroparesis. Historically the patient's nausea and vomiting improves with IV Benadryl, IV Zofran, and IVF. No shortness of breath. No fever. No cough. Accompanied by significant other of 7 years, she is a RN and recently switched from our hospital to [facility]. PMHx DM1: Diagnosed at age 13. A1c on 02/13/2020 was 9.7%. Per 05/07/2020 endocrinology note: "he is demonstrating persistent hyperglycemia with significant variability". Multiple admissions for DKA, last [id number]. Diabetic autonomic neuropathy, diabetic gastroparesis (gastric pacemaker installed 01/30/2020, on domperidone 10 mg 3 x), diabetic kidney disease. BGL 156 here. Recently changed to a new pump the Control IQ with tandem pump, denies having difficulty with the new pump. Historian: Patient PCP: No primary care provider on file. Past Medical History: Diagnosis Date Anxiety Diabetes mellitus Gastroparesis Hypertension Neuropathy Renal disorder Type 1 diabetes mellitus with autonomic neuropathy History reviewed. No pertinent surgical history. Compazine [prochlorperazine], Nsaids (non-steroidal anti-inflammatory drug), Reglan [metoclopramide hcl], and Silver Social History Tobacco Use Smoking status: Never Smoker Smokeless tobacco: Never Used Substance Use Topics Alcohol use: Never Frequency: Never REVIEW OF SYSTEMS: CONSTITUTIONAL : No fever, No chills. ENT: No vision changes, no sore throat CARDIOVASCULAR : No Chest Pain. RESPIRATORY : No Cough, No SOB. GI : + Nausea and vomiting. No Abdominal pain. : No dysuria MUSCULOSKELETAL : No back pain, no neck pain SKIN : No rash. PSYCH : No depression NEUROLOGIC : No headaches, no focal complaints PHYSICAL EXAM: BP 161/72 | Temp 36.9 C (98.4 F) (Oral) | Resp 16 | Wt 87.8 kg (193 lb 9 oz) | SpO2 98% | BMI 30.32 kg/m GENERAL : Vital signs reviewed, appears nauseous, no distress, accompanied by partner HEAD : Normocephalic, Atraumatic EYES : PERRL, EOMI ENT : Mucus membranes moist. Posterior pharynx is normal NECK : Supple , no meningismis CARD : Regular rate and rhythm, no murmur RESP : CTA bilaterally, ABD : Soft, nontender, non-distended BACK : No CVA tenderness. Non-tender SKIN : No rash, warm and dry. EXTREMITIES: No edema NEURO : AOx3, moving all extremities, no focal neurologic deficits PSYCH : Mood/affect unremarkable Medical Decision Making: Mauri Levine is a 34 y.o. male presents to the ED complaining of acute on chronic nausea and vomiting. He has a long history of gastroparesis, and is seen here frequently. He's been using intramuscular Phenergan at home with some relief, although cc getting worse over the past several months. On examination, he appears well. Normal vitals. Not acutely ill or toxic. Clinically, this pt has is suffering from his diabetic gastroparessi. Differential diagnosis includes DKA, dehydration, metabolic derangement or electrolyte disturbance, bowel obstruction. At this point I suspect this is just a recurrent episode of gastroparesis, and patient agrees this is pretty typic al.. I will do the following workup: CBC, CMP, lipase, UA, beta-hydroxybutyric level, and VBG. I will treat this patient with 50 mg IV Benadryl, 25 mg IV Phenergan, 4 mg IV Zofran, and 2 liters NS. ED Course: Labs: VBG with a normal pH. Serum ketones slightly elevated but with normal VBG pH likely due to stress/vomiting. Bicarbonate is normal, anion gap is low. White count elevated at 11.7, likely a stress response. Creatinine 2.02 which is baseline. Lipase is normal. An IV was established. He was given a bolus of fluids, intravenous Phenergan, Benadryl, and Zofran. After receiving the medications and after a couple of hours here in the emergency department, with some fluids, he was feeling significantly improved. I felt comfortable with the discharge at this point. He can follow-up with his primary physician. Patient and are comfortable with that plan Timeline: 21:25 Patient feels improved, he would like to try consuming some ice chips 21:35 Patient tolerating PO, plan for discharge Assessment/Plan: Recurrent episode of gastroparesis with vomiting. The patient was given instructions regarding follow-up, need for return should symptoms or conditionworsen at all. Patient agrees to follow up as detailed and discussed. Expresses understanding of these instructions. Note: Parts of this chart were entered by Abdiel Heath in the role of medical donation professional. My signaturebelow indicates that I have reviewed the chart, edited as needed, and accepted it as accurate and complete. Labs Reviewed CBC NO DIFF - Abnormal; Notable for the following components: Result Value White Blood Cells 11.7 (*) Hemoglobin 13.1 (*) Hematocrit 38.9 (*) Platelet Count 406 (*) All other components within normal limits COMPREHENSIVE METABOLIC PANEL - Abnormal; Notable for the following components: Glucose 147 (*) Creatinine 2.02 (*) Potassium 3.4 (*) CO2 33 (*) Anion Gap 4 (*) Total Protein 8.7 (*) Alkaline Phosphatase 134 (*) All other components within normal limits Narrative: Glucose Reference Range : ADA 2012 Diagnostic Categories for non adults: Impaired fasting glucose 100-125 mg/dL A fasting glucose result of 126 mg/dL or greater indicates diabetes if the abnormality is confirmed on a subsequent day. A random glucose of 200 mg/dL or greater in a patient with symptoms of hyperglycemia or hyperglycemic crisis, indicates diabetes. LIPASE - Abnormal; Notable for the following components: Lipase 55 (*) All other components within normal limits BETA-HYDROXYBUTYRIC ACID - Abnormal; Notable for the following components: Beta Hydroxybutyryric Acid 0.56 (*) All other components within normal limits I-STAT VBG+/LACTATE - Abnormal; Notable for the following components: pH Venous 7.453 (*) HCO3, [place] 31.4 (*) Base Excess, [place] 7.0 (*) O2 Sat, [place] 61.0 (*) All other components within normal limits Medications sodium chloride 0.9 % BOLUS infusion 2,000 mL (0 L Intravenous Stopped 05/22/202143) ondansetron (ZOFRAN) injection 4 mg (4 mg Intravenous Given 05/22/201935) promethazine (PHENERGAN) injection 25 mg (25 mg Intravenous Given 05/22/201937) diphenhydrAMINE (BENADRYL) injection 50 mg (50 mg Intravenous Given 05/22/201934) DISPOSITION: The patient is discharged in stable condition. 1. Gastroparesis 2. Generalized abdominal pain 3. Non-intractable vomiting with nausea, unspecified vomiting type Discharge Medication List as of 05/22/2020 9:56 PM ED Visit Patient roomed in ED 05/22/20 1909 Jose R Connor MD 9:36 AM, 05/23/2020 Jose R Connor MD 05/23/20 0939 Hema Victoria RN - 05/22/2020 7:10 PM PST Pt arrives via family reporting vomiting for the past 36 hrs. Pt currently denies any pain fevers ordiarrhea . Pt seen here before for same. documented in this encounter Miscellaneous Notes ACACIA-Visit History - [place] Interface Model - 05/22/2020 7:03 PM PST Acacia has no Care Guidelines [...] Rx Count:0 ED/UCC VISIT TRACKING (3 MO.) 05/22/2020 19:02 Sid LOREDO TYPE: Emergency DIAGNOSES: - vomiting, dehyration 05/14/2020 19:54 Sid LOREDO TYPE: Emergency DIAGNOSES: [...] visits to display in this time frame EGinger VISIT COUNT (12 MO.) 4 [facility]. 0 Medicaid NE Dx 2 [facility] 0 Medicaid NE Dx 3 [facility] 0 Medicaid NE Dx TOTAL 9 TOTAL MEDICAID NE DX 0 NOTE: Visits indicate total known visits. Medicaid NE Dx are the number of primary diagnoses on the [facility] non-emergent dx list. CARE PROVIDERS KWAME FLORES [facility] Current PHONE: [phone] CLAUDIA SIEGEL L, Nurse Practitioner: Psychiatric/Mental Health Current MSN L PHONE: Unknown [facility] Primary Care Current PHONE: Unknown [facility] Current [place] PHONE: [phone] DENTAL ONLY Primary Care Current PHONE: [phone] [email or web address] Security Events No recent Security Events currently on file documented in this encounter Plan of Treatment Not on filedocumented as of this encounter Procedures Procedure Name Priority Date/Time Associated Comments Diagnosis URINALYSIS WITH STAT 05/22/2020 9:55 Results f or this REFLEX TO CULTURE IF PM PST procedu re are in INDICATED the results section. I-STAT VBG+/LACTATE Routine 05/22/2020 7:29 Resul ts for this PM PST procedure are i n the results section. HOLD SAMPLE - STAT 05/22/2020 7:16 LAVENDER TOP TUBE PM PST HOLD SAMPLE - GREEN STAT 05/22/2020 7:16 GEL TUBE PM PST LAB TUBE LABELS - ED STAT 05/22/2020 7:16 Resu lts for this PM PST procedure are i n the results section. BETA-HYDROXYBUTYRIC STAT Add-On 05/22/2020 7:16 Resul ts for this ACID PM PST procedure are i n the results section. CBC NO DIFF STAT Add-On 05/22/2020 7:16 Results for this PM PST procedure are i n the results section. LIPASE STAT Add-On 05/22/2020 7:16 Results for this PM PST procedure are i n the results section. COMPREHENSIVE STAT Add-On 05/22/2020 7:16 Results for this METABOLIC PANEL PM PST procedure ar e in the results section. documented in this encounter Results (ABNORMAL) Urinalysis (05/22/2020 9:55 PM PST) [facility] gist Method Time Signature UA Color Yellow Yellow 05/22/2020 [facility] 10:13 PM PST UA Appearance Clear Clear 05/22/2020 [facility] 10:13 PM PST UA Glucose 50 (A) Negative 05/22/2020 [facility] mg/dL 10:13 PM PST UA Bilirubin Negative Negative 05/22/2020 [facility] 10:13 PM PST UA Ketones Negative Negative 05/22/2020 [facility] mg/dL 10:13 PM PST UA Specific 1.014 1.001 - 05/22/2020 [facility] [place] 1.030 10:13 PM PST UA Blood Negative Negative 05/22/2020 [facility] 10:13 PM PST UA pH 8.0 5.0 - 8.0 05/22/2020 [facility] 10:13 PM PST UA Protein >300 (A) Negative 05/22/2020 [facility] mg/dL 10:13 PM PST UA Nitrite Negative Negative 05/22/2020 [facility] 10:13 PM PST UA Leukocyte Negative Negative 05/22/2020 [facility] Ester[place] 10:13 PM PST UA WBC 0-5 0 - 5 /HPF 05/22/2020 [facility] 10:13 PM PST UA RBC 3-5 (A) 0 - 2 /HPF 05/22/2020 [facility] 10:13 PM PST Specimen Anatomical Collection Method Collection Time Receive d Time (Source) Location / / Volume Laterality Urine specimen 05/22/2020 9:55 PM 020 (specimen) PST 10:04 PM PST (Urine) Jose R Connor MD URINE ORDERABLES Performing Organization Address City/[facility]/ZIP [facility] Phon e Number [facility] [address] [place] [address] [phone] (ABNORMAL) I-STAT VBG+/LACTATE (05/22/2020 7:29 PM PST) Analysis Performed At Patho logist Time Signature pH Venous 7.453 (H) 7.310 - 05/22/2020 [facility] 7.410 7:34 PM PST pCO2 Venous 44.8 40.0 - 05/22/2020 [facility] 52.0 mmHg 7:34 PM PST pO2 Venous 30.0 30.0 - 05/22/2020 [facility] 50.0 mmHg 7:34 PM PST HCO3, [place] 31.4 (H) 22.0 - 05/22/2020 [facility] 27.0 7:34 PM PST mmol/L Base Excess, 7.0 (H) -3.0 - 3.0 05/22/2020 [facility] [place] mmol/L 7:34 PM PST O2 Sat, [place] 61.0 (L) 92.0 - 05/22/2020 [facility] 98.0 % 7:34 PM PST Lactate, 0.88 0.40 - 05/22/2020 [facility] Venous 2.00 7:34 PM PST mmol/L Specimen Anatomical Collection Method Collection Time Receive d Time (Source) Location / / Volume Laterality Blood specimen 05/22/2020 7:29 PM 7:34 (specimen) PST PM PST (Blood) Poct Results Unsolicted POCT ORDERABLES - DEVICE Performing Organization Address City/[facility]/ZIP [facility] Phon e Number [facility] [address] [place] [address] (ABNORMAL) Beta-Hydroxybutyric Acid (05/22/2020 7:16 PM PST) Patholo gist Method Time Signature Beta 0.56 (HH) <0.30 05/22/2020 [facility] Hydroxybutyryric mmol/L 7:38 PM PST Acid Specimen Anatomical Collection Method Collection Time Receive d Time (Source) Location / / Volume Laterality Blood specimen Line / Unknown 05/22/2020 7:16 PM 05/22 7:20 (specimen) PST PM PST Jose R Connor MD LAB BLOOD ORDERABLES Performing Organization Address [facility] Phon e Number [facility] [address] [address] (ABNORMAL) Lipase (05/22/2020 7:16 PM PST) athologist Signature Lipase 55 (L) 73 - 393 U/L 05/22/2020 [facility] 7:46 PM PST Specimen Anatomical Collection Method Collection Time Receive d Time (Source) Location / / Volume Laterality Blood specimen Line / Unknown 05/22/2020 7:16 PM 05/22 7:20 (specimen) PST PM PST Jose R Connor MD LAB BLOOD ORDERABLES Performing Organization Address City/[facility] Phon e Number [facility] [address] [place] [address] (ABNORMAL) Comprehensive metabolic panel (05/22/2020 7:16 PM PST) athologist Signature Glucose 147 (H) 65 - 99 05/22/2020 [facility] mg/dL 7:46 PM PST BUN 18 7 - 18 05/22/2020 [facility] MG/DL 7:46 PM PST Creatinine 2.02 (H) 0.70 - 1.30 05/22/2020 [facility] mg/dL 7:46 PM PST eGFR 38 m/m/1.73 05/22/2020 [facility] 7:46 PM PST Comment: GFR < 60: Chronic kidney disease if foun d over a 3 month period. Patient race not entered. If patient i s multiply the calculated GFR by 1.21 Sodium 136 136 - 145 mmol/L 05/22/2020 7:46 PM PST [facility] Potassium 3.4 (L) 3.5 - 5.1 mmol/L 05/22/2020 7:46 PM PST [facility] Chloride 99 98 - 107 mmol/L 05/22/2020 7:46 PM PST [facility] CO2 33 (H) 21 - 32 mmol/L 05/22/2020 7:46 PM [facility] Anion Gap 4 (L) 5 - 16 mmol/L 05/22/2020 7:46 PM [facility] Calcium 9.7 8.5 - 10.1 mg/dL 05/22/2020 7:46 PM [facility] Total Protein 8.7 (H) 6.4 - 8.2 G/DL 05/22/2020 7:46 PM PS T [facility] Albumin 3.9 3.4 - 5.0 G/DL 05/22/2020 7:46 PM [facility] Bilirubin Total 0.4 0.2 - 1.0 mg/dL 05/22/2020 7:46 PM [facility] Alkaline Phosphatase 134 (H) 45 - 117 U/L 05/22/2020 7:46 PM [facility] AST (SGOT) 22 15 - 37 U/L 05/22/2020 7:46 PM [facility] ALT (SGPT) 24 16 - 61 U/L 05/22/2020 7:46 PM [facility] Specimen Anatomical Collection Method Collection Time Receive d Time (Source) Location / / Volume Laterality Blood specimen Line / Unknown 05/22/2020 7:16 PM 05/22 7:20 (specimen) PST PM [facility] Narrative [facility] - 05/22/2020 7:46 PM [facility] Glucose Reference Range : ADA 2012 Diagnostic Categories for nonpr egnant adults: Impaired fasting glucose 100-125 mg/dL A fasting glucose result of 126 mg/dL or greater indicates diabetes if the abnormality is confirmed on a subsequent day. A random glucose of 200 mg/dL or greater in a patient with symptoms of hyperglycemia or hyperglycemic crisis, indicates diabetes. Jose R Connor MD LAB BLOOD ORDERABLES Performing Organization Address City/State/ZIP Code Phon e Number [facility] [address] [place] [address] (ABNORMAL) CBC No Diff (05/22/2020 7:16 PM PST) Analysis Performed At Patho logist Time Signature White Blood 11.7 (H) 3.8 - 11.0 05/22/2020 [facility] Cells k/ul 7:26 PM [facility] RBC 4.48 4.20 - 05/22/2020 [facility] 5.70 M/uL 7:26 PM PST Hemoglobin 13.1 (L) 13.2 - 05/22/2020 [facility] 17.0 g/dL 7:26 PM PST Hematocrit 38.9 (L) 39.0 - 05/22/2020 [facility] 50.0 % 7:26 PM PST MCV 86.9 80.0 - 05/22/2020 [facility] 100.0 fL 7:26 PM PST MCH 29.3 27.0 - 05/22/2020 [facility] 34.0 pg 7:26 PM PST MCHC 33.7 32.0 - 05/22/2020 [facility] 35.5 g/dL 7:26 PM PST RDW-CV 13.6 11.0 - 05/22/2020 [facility] 15.5 % 7:26 PM PST Platelet Count 406 (H) 150 - 400 05/22/2020 [facility] K/uL 7:26 PM PST MPV 8.5 7.0 - 11.3 05/22/2020 [facility] fL 7:26 PM PST Specimen Anatomical Collection Method Collection Time Receive d Time (Source) Location / / Volume Laterality Blood specimen Line / Unknown 05/22/2020 7:16 PM 05/22 7:20 (specimen) PST PM PST Jose R Connor MD LAB BLOOD ORDERABLES Performing Organization Address City/[facility]/ZIP Code Phon e Number [facility] [address], [place] [address] [phone] Hold Sample Green Gel Tube (05/22/2020 7:16 PM PST) Specimen Anatomical Collection Method Collection Time Receive d Time (Source) Location / / Volume Laterality Blood specimen Line / Unknown 05/22/2020 7:16 PM 05/22 7:20 (specimen) PST PM PST Jose R Connor MD LAB BLOOD ORDERABLES Performing Organization Address City/[facility]/ZIP [facility] [place] Phon e Number [facility] [address] [place] [address] [phone] Hold Sample - Lavender Top Tube (05/22/2020 7:16 PM PST) Specimen Anatomical Collection Method Collection Time Receive d Time (Source) Location / / Volume Laterality Blood specimen Line / Unknown 05/22/2020 7:16 PM 05/22 7:20 (specimen) PST PM PST Jose R Connor MD LAB BLOOD ORDERABLES Performing Organization Address City/State/ZIP Code Phon e Number [facility] [address] [place] [address] [phone] documented in this encounter Visit Diagnoses Diagnosis Gastroparesis - Primary Generalized abdominal pain Abdominal pain, generalized Non-intractable vomiting with nausea, un specified vomiting type documented in this encounter Administered Medications Inactive Administered Medications - up to 3 most recent administrations Medication Order MAR Action Action Date Dose Rate Site diphenhydrAMINE (BENADRYL) Given 05/22/2020 7:35 PM PST 50 mg injection 50 mg 50 mg, Intravenous, Once On Jihan 05/22/20 at 1921, For 1 dose ondansetron (ZOFRAN) injection 4 mg Given 05/22/2020 7:36 PM PST 4 mg 4 mg, Intravenous, Once On Jihan 05/22/20 at 1921, For 1 dose, If ordered IV route: may give undiluted by slow IV push over 1/2 to 2 minutes promethazine (PHENERGAN) injection 25 mg Given 05/22/2020 7:38 PM PST 25 mg 25 mg, Intravenous, Once On Jihan 05/22/20 at 1921, For 1 dose sodium chloride 0.9 % BOLUS New Bag 05/22/2020 7:33 PM PST 2,000 m Ls 2000 mL/hr infusion 2,000 mL 2,000 mL (2 L), Intravenous, Administer over 1 Hours, Once, On Jihan 05/22/20 at 1921, For 1 dose documented in this encounter Active and Recently Administered Medications Times are shown in PST. Scheduled Medication Order 05/20/2020 05/21/2020 05/22/2020 diphenhydrAMINE (BENADRYL) injection 50 mg (COMPLETED) 1934 (Given - Provider: Filemon Stallworth, NICOLE) 50 mg, Intravenous, Once On Jihan 05/22/20 at 1921, For 1 dose ondansetron (ZOFRAN) injection 4 mg (COMPLETED) 1935 (Given - Provider: Filemon Stallworth, NICOLE) 4 mg, Intravenous, Once On Jihan 05/22/20 at 1921, For 1 dose, If ordered IV route: may give undiluted by slow IV push over 1/2 to 2 minutes promethazine (PHENERGAN) injection 25 mg (COMPLETED) 1937 (Given - Provider: Filemon Stallworth, RN) 25 mg, Intravenous, Once On Jihan 05/22/20 at 192, For 1 dose sodium chloride 0.9 % BOLUS infusion 2,000 mL (COMPLETED) 1932 (New Bag - Provider: Filemon Stallworth, RN)2143 (Stopped - Provider: Goldy Pastor RN) 2,000 mL (2 L), Intravenous, Administer over 1 Hours, Once, On Jihan 05/22/20 at 1920, For 1 dose documented in this encounter
--- OUTSIDE RECORDS SUMMARY | 2022-07-24 16:41 | External Medical Summary | Encounter Summary ---
:1985 Author Organization [facility] Address [address] [place] [address] Care Team Providers Name Role Phone Unavailable Primary Care Provider Unavailable Reason for Visit Reason Comments Emesis Auth/Cert Specialty Diagnoses / Procedures Referred By Contact Refer red To Contact Diagnoses Gastroparesis Dehydration Renal insufficiency Type 1 diabetes mellitus with hyperglycemia (HCC) Dehydration Dehydration Procedures 08/11 GASTROPARESIS & DEHYDRATION Referral ID Status Reason Start Date Expiration Date Visits Requ ested Visits Authorized [id number] 1 1 Encounter Details Date Type Department Care Team Description 08/10/2019 - Emergency [facility] 3 Guicho Dixon MD [address] [place] [address] Dehydration (Primary Dx); 08/11/[address] [place] Billy García MD [address] [place] [address] Renal insufficiency; [place] [address] Rigoberto Stafford MD [address] [place] [address] Type 1 diabetes mellitus with hyperglyce nancy (HCC); [phone] Gastroparesis Social History Tobacco Use Types Packs/Day Years [...] Sign Reading Time Taken Comments Blood Pressure 178/96 08/11/2019 4:30 PM PST Pulse 90 08/11/2019 4:30 PM PST Temperature 37 C (98.6 F) 08/11/2019 4:30 PM PST Respiratory Rate 18 08/11/2019 4:30 PM PST Oxygen Saturation 100% 08/11/2019 4:30 PM PST Inhaled Oxygen Concentration - - Weight 76.6 kg (168 lb 14 oz) 08/11/2019 1:40 AM PST Height 170.2 cm (5' 7") 08/11/2019 1:40 AM PST Body Mass Index 26.45 08/11/2019 1:40 AM PST documented in this encounter Discharge Summaries Billy Melendrez MD - 08/11/2019 6:59 PM PST [facility] Hospitalist DISCHARGE SUMMARY Patient:Mauri Levine Admit date: 08/10/2019 Discharge date: 08/11/2019 : 1985 (home) Primary Emergency Contact: TALIAKEILY, CHIEF COMPLAINT Nausea and vomiting DISCHARGE DIAGNOSIS & PLAN 1. Type 1 diabetes with hyperglycemia: Secondary to insulin pump malfunction complicated by recent flare up of diabetic gastroparesis and intractable vomiting. Ketones and lactate are up, suspected from starvation and dehydration, but anion gap is normal. Hemoglobin A1C 10 2. Diabetic gastroparesis with cyclic vomiting: Improved now with hydration and Phenergan. 3. Leukocytosis 4. Acute on chronic renal insufficiency: Patient reports his creatinine is usually between 2 and 3. Creatinine 3.8 at presentation Plan: 1. Disposition: Home 2. Hold captopril due to worsening renal failure. Have BMP checked in a week and resume captopril ifcreatinine returns to less than 2, or consult with nephrology for further advice. For hypertension for now carvedilol has been prescribed. 3. Reduce basal rate of insulin pump to half until oral intake adequate. Please check blood glucose every 4 hours for now and adjust insulin as necessary. 4. Please keep self well hydrated. 5. Follow-up with PCP, GI in 1 week if possible Past Medical History: Diagnosis Date Anxiety Diabetes mellitus Gastroparesis Hypertension Neuropathy Renal disorder Type 1 diabetes mellitus with autonomic neuropathy Consultants: None Procedures: None HOSPITALIZATION COURSE: From the H&P: Patient is a33 y.o.malewith a history oftype I diabetesand chronic renal insufficiency (creatinine between 2 and 3), never hospitalized here before, usually goes to [facility],who presents with2 days of increased vomiting. Then he noticed last night that his insulin pump ran out of insulin. He cannot recall anything that may have set off his vomiting. He has not had any recent infectious signs or symptoms such as fevers, cough, abdominal pain or diarrhea. In the emergency room, he is afebrile with mild tachycardia in the 110s, normotensive. CBC with a white count of 18.1, chemistries with a glucose of 526, BUN 59, creatinine 3.8, sodium 128, CO2 34, anion gap 14, alkaline phosphatase 147, beta hydroxybutyric acid greater than 2.0, venous lactate 2.47. After treatment with IV fluids and insulin, Chemstick glucose came down to 369. Repeat labs are pending. HIS MEDICAL ISSUES, HOSPITAL STAY AND DISCHARGE PLANNING CAN BE SUMMARIZED IN THE FOLLOWING: The patient was admitted and placed on IV fluid in addition to other medical support measures including antiemetics, and lorazepam for breakthrough nausea. By midday, he started to feel better and the nausea and vomiting have very much subsided in term of insulin coverage, he was taken off his insulinpump and placed on Lantus 6 units subcutaneous twice a day. By late afternoon his blood glucose has been ranging around 120, noting that his oral intake has been still minimal. In the meantime his creatinine has improved from 3.88 to 3.04. The cause for the acute kidney injury is partly due to volume depletion. The plan was to continue with the current treatment and titrate insulin, once he is able to toleratefood okay. Unfortunately the patient as he had behaved in the past did not want to stay in the hospital further. I had stopped by the room 4 times to visit and encouraged him to stay as it is early to tell for sure if he is not going to be symptomatic again in term of nausea, vomiting, and ability to keep himself hydrated. Feeling that he had to stay, he has become more anxious. As such reluctantly Ihave to let him go home. His who is a RN told me that he has done similar things in the past and never had to be readmitted soon after. His creatinine is more than 3 and as such I am requesting him to hold ABBE inhibitor for now. As his blood pressure is higher than expected around 170 systolic, I am prescribing carvedilol. The discharge plan is as in the above. DISCHARGE MEDICATION: Your Complete Home Medication List Your Medication List Last Dose Next Dose atorvastatin 40 MG tablet Dose: 40 mg Take 40 mg by mouth nightly Commonly known as: LIPITOR carvediloL 3.125 MG tablet Quantity: 60 tablet Dose: 3.125 mg Take 1 tablet (3.125 mg total) by mouth 2 (two) times daily with meals Commonly known as: COREG cloNIDine 0.1 mg/24 hr Dose: [address] 1 patch onto the skin every 7 days Commonly known as: CATAPRES-TTS fluvoxaMINE 50 MG tablet Dose: 50 mg Take 50 mg by mouth nightly Commonly known as: LUVOX gabapentin 300 MG capsule Dose: 600 mg Take 600 mg by mouth 3 (three) times daily Commonly known as: NEURONTIN insulin pump (PATIENT'S OWN) Inject into the skin as needed 12am-2am Basal 1.2, correct factor 1:45, carb ratio 1:13, target 120 2am-7am Basal 0.7, correct factor 1:45, carb ratio 1:13, target 140 7am-12am Basal 1.2, correct factor 1:45, carb ratio 1:13, target 120 LORazepam 0.5 MG tablet Dose: 0.5 mg Take 0.5 mg by mouth 3 (three) times daily as needed for Anxiety Indications: panic attack For: panic attack Commonly known as: ATIVAN melatonin 10 mg Tab Take by mouth nightly as needed multivitamin tablet Dose: 1 tablet Take 1 tablet by mouth nightly Generic drug: multivitamin promethazine 25 mg/mL injection Dose: 12.5 mg Inject 12.5 mg into the vein every 6 (six) hours as needed Commonly known as: PHENERGAN senna 8.6 mg tablet Dose: 8.6 mg Take 8.6 mg by mouth nightly as needed for Constipation Commonly known as: SENOKOT tadalafil 10 MG tablet Dose: 5 mg Take 5 mg by mouth nightly Commonly known as: CIALIS UNABLE TO FIND Dose: 10 mg Take 10 mg by mouth 3 (three) times daily Domperidone Indications: 15-30 minutes before meals For: 15-30 minutes before meals UNABLE TO FIND Dose: 50 mg 50 mg by Nasal route 3 (three) times daily as needed Ketamine 50 mg/ml, 1-2 sprays into each nostrilTID PRN nausea and vomitting Where to Get Your Medications [id number] [address] [place] [id number] [place] [id number] [id number] carvediloL 3.125 MG tablet PHYSICAL EXAM: BP 161/82 (BP Location: Left arm) | Pulse 92 | Temp 37.1 C (98.8 F) (Oral) | Resp 22 | Ht 1.702 m (5' 7") | Wt 76.6 kg (168 lb 14 oz) | SpO2 96% | BMI 26.45 kg/m General: alert, oriented x 3. No acute distress Neck/Oral: some periorbital edema Heart: regular rate and rhythm Lungs: diminished breath sound Abdomen: soft. Hypoactive bowel sound Extremities: trace-1 edema Neuro: non focal DIAGNOSTIC STUDIES: Recent Labs Lab 08/10/19210708/11/19227 WBC 18.1* 15.7* HCT 39.3 33.7* PLT 322 258 Recent Labs Lab 08/10/19210708/10/19 2341 08/11/198 NA 128* 135* 134* K 3.7 3.2* 3.7 CL 80* 90* 90* CO2 34* 34* 28 BUN 59* 59* 54* CREATININE 3.88* 3.36* 3.04* GLUR 526* 378* 462* CA 9.5 8.0* 8.4* AST 13* -- -- ALT 25 -- -- BILITOT 0.4 -- -- ALKPHOS 147* -- -- No results for input(s): CK, CKMB, TROPI, BNP in the last 168 hours. No results for input(s): TSH in the last 168 hours. No results for input(s): ESR, CRP in the last 168 hours. Recent Labs Lab 08/11/19 0351 UAPH 5.0 UASG 1.015 UABILI Negative APPEARUA Clear UACOLOR Yellow UAGLU >500 * UABLOOD Small* UAKETONE 20 * UALEUKEST Negative WBCUA 0-5 UANITRITE Negative RBCUA 0-2 X-ray Chest 1 view (AP/PA only) Final Result by Kandy Willoughby MD (08/11 26) Clear lungs. RADIA Dictated By: Case Gaitan MD 2019-08-11 00:26:52.633 Signed By: Case Gaitan MD 2019-08-11 00:27:54.0 Transcribed By: Case Gaitan 2019-08-11 00:27:54.43 Referring Provider Line: [phone] SITE ID: [id number] Greater than 30 minutes spent on preparation of discharge materials, counseling, and coordination ofcare. Signed: Billy García MD || 08/11/2019 7:05 PM [facility] Hospitalist Service documented in this encounter Discharge Instructions Discharge InstructionsBilly Melendrez MD - 08/11/2019 7:17 PM PST 1. Disposition: Home 2. Hold captopril due to worsening renal failure. Have BMP checked in a week and resume captopril ifcreatinine returns to less than 2, or consult with nephrology for further advice. For hypertension for now carvedilol has been prescribed. 3. Reduce basal rate of insulin pump to half until oral intake adequate. Please check blood glucose every 4 hours for now and adjust insulin as necessary. 4. Please keep self well hydrated. 5. Follow-up with PCP, GI in 1 week if possible AttachmentsThe following attachments cannot be sent through Care Everywhere. Diabetes, Type 1, Understanding ([place])documented in this encounter Medications at Time of Discharge Medication Sig Dispensed Refills Start Date End Date atorvastatin (LIPITOR) Take 40 mg by mouth 0 40 MG tablet nightly carvediloL (COREG) Take 1 tablet (3.125 60 tablet 0 020 3.125 MG tablet mg total) by mouth 2 (two) times daily with meals fluvoxaMINE (LUVOX) 50 Take 100 mg by mouth 0 MG tablet nightly gabapentin (NEURONTIN) Take 600 mg by mouth [...] 1:45, carb ratio 1:13, target 12 0 LORazepam (ATIVAN) 0.5 Take 0.5 mg by mouth 3 0 MG tabletIndications: (three) times daily as panic attack needed for Anxiety Indications: panic attack melatonin 10 mg Tab Take by mouth nightly 0 as needed multivitamin Take 1 tablet by mouth 0 (MULTIVITAMIN) tablet nightly senna (SENOKOT) 8.6 mg Take 8.6 mg by mouth 0 tablet nightly as needed for Constipation tadalafil (CIALIS) 10 Take 5 mg by mouth 0 MG tablet nightly UNABLE TO FIND 50 mg by Nasal route 3 0 (three) times daily as needed Ketamine 50 mg/ml, 1-2 sprays into each nostril TID PRN nausea and vomitting cloNIDine Place 1 patch onto the 0 11/29/2018 (CATAPRES-TTS) 0.1 skin every 7 days mg/24 hr UNABLE TO Take 10 mg by mouth 3 0 FINDIndications: 15-30 (three) times daily minutes before meals Domperidone Indications: 15-30 minutes before meals documented as of this encounter Progress Notes Tiara Carpenter RN - 08/11/2019 8:05 PM PST Patient discharged as per order, at the bedside, BP elevated, give coreg 6.25 mg x 1 per order,no GERMAIN, CP or SOB. Patient voided, ate 50% of dinner, tolerated well, no N/V noted. Patient went homewith in stable condition, AVS printed with discharge instructions given to patient, read to thepatient , acknowledged understanding. Patient was offered wheel chair to take him down to parking garage but refused, walked out with together with all the belongings. Charge nurse notified Hemalatha Topete RN - 08/11/2019 7:23 PM PST Assumed pt care from [id number]. Pt eating general diet at this time / at bedside. Pt to DC thisevening per MD. No c/o pain or nausea. Hand-off given to NICOLE Menjivar. Addendum - pt's BP elevated, currently 184/91. paged. Will await callback prior to discharging pt. Billy Melendrez MD - 08/11/2019 8:39 AM PST [facility] Hospitalist PROGRESS NOTE Patient:Mauri Levine No care pricing/signage team member to display : 1985 (home) Primary Emergency Contact: KEILY MELGAR, Consulting Physician(s) CHIEF COMPLAINT Patient is a 33 y.o. male who presented with chief complaint of: nausea and vomiting ASSESSMENTS & PLANS 1. Type 1 diabetes with hyperglycemia: Secondary to insulin pump malfunction complicated by recent flare up of diabetic gastroparesis and intractable vomiting. Ketones and lactate are up, suspected from starvation and dehydration, but anion gap is normal. 2. Diabetic gastroparesis with cyclic vomiting: Improved now with hydration and Phenergan. 3. Leukocytosis: Could be from the stress of vomiting compounded by dehydration. Infection can't be ruled out at this time 4. Acute on chronic renal insufficiency: Patient reports his creatinine is usually between 2 and 3. Creatinine 3.8 at presentation Plan: 1. Reglan every 6 hours 2. Decrease IV fluid normal saline with 25 mL an hour 3. Lantus 6 units twice a day 4. Insulin sliding scale low-dose 5. Check urine tox 6. Check FilmArray 7. Watch for any other specific symptoms of an infection. DVT Prophylaxis: Heparin SQ Code Status: FULL CODE per Self Past Medical History: Diagnosis Date Anxiety Diabetes mellitus Gastroparesis Hypertension Neuropathy Renal disorder Type 1 diabetes mellitus with autonomic neuropathy SUBJECTIVE/INTERVAL EVENTS Chart reviewed and events noted. All pertinent labs reviewed. The patient is feeling better after lorazepam was used for severe nausea. Blood glucose has improvedsignificantly. Low-grade fever 100 Fahrenheit blood pressure within normal limit. One episode, still high at 15.7. Creatinine has improved from 3.88-3.04 on IV fluid. 35 minutes was spent with this patient during today's visit and greater than> 50% of the time wasspent reviewing chart, laboratory/radiological data, prior encounters, counseling, and coordinating patient's care/ unit floor time. Last Weight 76.6 kg (168 lb 14 oz) Admission Weight: 68 kg (150 lb) Weight change: sodium chloride 200 mL/hr at 08/11/19 0737 Stool Occurences from 08/09/19 0840 to 08/11/19 0840 None % Meals Eaten from 08/10/19 0840 to 08/11/19 0840 None I/O last 3 completed shifts: In: 1000 [I.V.:1000] Out: 650 [Emesis/NG output:650] I/O this shift: In: - Out: 425 [Urine:425] O2: No data recorded Events OBJECTIVE VS: Vital 24 Hour Range Most Recent Value Temperature Temp Min: 36.5 C (97.7 F) Max: 37.8 C (100 F) 37 C (98.6 F) Pulse Pulse Min: 93 Max: 113 93 Respiratory Resp Min: 17 Max: 22 22 Blood Pressure BP Min: 113/69 Max: 180/86 138/72 Pulse Oximetry SpO2 Min: 96 % Max: 100 % 96 % Art. BP No data recorded O2 No data recorded PHYSICAL EXAM BP 138/72 (BP Location: Left arm) | Pulse 93 | Temp 37 C (98.6 F) (Oral) | Resp 22 | Ht 1.702 m (5' 7") | Wt 76.6 kg (168 lb 14 oz) | SpO2 96% | BMI 26.45 kg/m CURRENT MEDICATIONS insulin glargine 12 Units Subcutaneous BID insulin lispro 0-10 Units Subcutaneous See Admin Instructions pantoprazole 40 mg Intravenous Q12H Brief HPI Patient is a 33 y.o. male with a history of type I diabetes and chronic renal insufficiency (creatinine between 2 and 3), never hospitalized here before, usually goes to [facility], who presents with 2 days of increased vomiting. Then he noticed last night that his insulin pump ran out of insulin.He cannot recall anything that may have set off his vomiting. He has not had any recent infectious signs or symptoms such as fevers, cough, abdominal pain or diarrhea. In the emergency room, he is afebrile with mild tachycardia in the 110s, normotensive. CBC with a white count of 18.1, chemistries with a glucose of 526, BUN 59, creatinine 3.8, sodium 128, CO2 34, anion gap 14, alkaline phosphatase 147, beta hydroxybutyric acid greater than 2.0, venous lactate 2.47. After treatment with IV fluids and insulin, Chemstick glucose came down to 369. Repeat labs are pending. LABORATORY All recent labs have been reviewed. CHEM: Recent Labs Lab 08/10/19210708/10/19234008/11/19227 NA 128* 135* 134* K 3.7 3.2* 3.7 CL 80* 90* 90* CO2 34* 34* 28 BUN 59* 59* 54* CREATININE 3.88* 3.36* 3.04* GLUR 526* 378* 462* CA 9.5 8.0* 8.4* RONNY: No results for input(s): CK, CKMB, TROPI, BNP in the last 168 hours. HEM: Recent Labs Lab 08/10/19210708/11/19227 WBC 18.1* 15.7* HGB 13.5 11.4* HCT 39.3 33.7* PLT 322 258 MCV 85.2 86.8 No results for input(s): CRP, ESR in the last 24 hours. Invalid input(s): MRET COAGS: No results for input(s): INR, PTT in the last 168 hours. Invalid input(s): LABPROT U/A: Recent Labs Lab 08/11/19 0351 UAPH 5.0 UASG 1.015 UABILI Negative APPEARUA Clear UACOLOR Yellow UAGLU >500 * UABLOOD Small* UAKETONE 20 * UALEUKEST Negative WBCUA 0-5 UANITRITE Negative RBCUA 0-2 Patient Vitals for the past 24 hrs: BP Temp Temp src Pulse Resp SpO2 Height Weight 08/11/19 0738 138/72 37 C (98.6 F) Oral 93 22 96 % -- -- 08/11/19 0523 162/82 36.7 C (98.1 F) Oral 108 17 99 % -- -- 08/11/19 0140 180/86 36.5 C (97.7 F) Oral 108 -- 96 % 1.702 m (5' 7") 76.6 kg (168 lb 14 oz) 08/11/19 0124 153/79 -- -- -- -- 99 % -- -- 08/11/19 0113 -- -- -- -- -- 99 % -- -- 08/10/192240 -- -- -- -- -- 97 % -- -- 08/10/199 132/76 -- -- -- -- 99 % -- -- 08/10/192203 137/74 -- -- -- -- 100 % -- -- 08/10/192133 139/85 -- -- -- -- 100 % -- -- 08/10/192128 -- -- -- -- -- 100 % -- -- 08/10/192119 174/87 -- -- -- -- -- -- -- 08/10/194 (!) 146/91 -- -- -- -- 98 % -- -- 08/10/192040 113/69 37.8 C (100 F) Oral 113 21 97 % 1.702 m (5' 7") 68 kg (150 lb) Results for orders placed or performed during the hospital encounter of 08/10/19 (from the past 24 hour(s)) POCT glucose-Result Collection Time: 08/11/19 8:27 AM Result Value Ref Range Glucose, Fingerstick 145 (H) 65 - 99 mg/dL POCT glucose-Result Collection Time: 08/11/19 7:27 AM Result Value Ref Range Glucose, Fingerstick 186 (H) 65 - 99 mg/dL POCT glucose-Result Collection Time: 08/11/19 6:38 AM Result Value Ref Range Glucose, Fingerstick 232 (H) 65 - 99 mg/dL POCT glucose-Result Collection Time: 08/11/19 5:24 AM Result Value Ref Range Glucose, Fingerstick 288 (H) 65 - 99 mg/dL POCT glucose-Result Collection Time: 08/11/19 4:09 AM Result Value Ref Range Glucose, Fingerstick 361 (H) 65 - 99 mg/dL POCT glucose-Result Collection Time: 08/11/19 3:17 AM Result Value Ref Range Glucose, Fingerstick 463 (H) 65 - 99 mg/dL POCT glucose-Result Collection Time: 08/11/19 2:22 AM Result Value Ref Range Glucose, Fingerstick 442 (H) 65 - 99 mg/dL POCT glucose-Result Collection Time: 08/10/19 10:38 PM Result Value Ref Range Glucose, Fingerstick 369 (H) 65 - 99 mg/dL POCT glucose-Result Collection Time: 08/10/19 9:08 PM Result Value Ref Range Glucose, Fingerstick >500 (HH) 65 - 99 mg/dL Billy García MD || 08/11/2019 8:40 AM [facility] Rachel Yates RN - 08/11/2019 6:41 AM PST Spoke with Dr. Stafford about morning finger blood sugar check of 238. Was instructed to "continueto monitor glucose throughout the day and do not treat this sugar level". Yates RN - 08/11/2019 5:27 AM PST paged: "E311, Finger stick blood sugar 288, treating with 8 units Humalog. pt still vomiting. howoften should we check glucose levels? thanks, Mann, #[id number]" Rachel Yates RN - 08/11/2019 4:26 AM PST paged: "E311, Levine. sorry to bug you but SUDHIR BASS is in! Do you want an ABG for bicarb and arterial pH? just a thought. ThanksMann RN" Rachel Yates RN - 08/11/2019 4:16 AM PST paged: "E3Abner Zamora J. Blood sugar finger stick 361 15 minutes after IV insulin. should I give 12 units Humalog per sliding scale? Per policy IV insulin is inappropriate for this units level of care. ThanksMann RN #[id number]" Rachel Yates RN - 08/11/2019 3:20 AM PST paged: "E311, repeat glucose finger stick 30 minutes after 12units of Humalog admin. Blood sugar 463. thanksMann #[id number]" Rigoberto Stafford MD - 08/11/2019 2:53 AM PST Patient now with possible hematemesis. Probably Connie-Byrne tear from frequent vomiting. We'll stop heparin, start Protonix, bolus IV fluid, recheck blood counts. Rachel Yates RN - 08/11/2019 2:37 AM PST paged: "E311Abner J. Pt vomit is now red in color. new change to vomit color. thanksMann RN#[id number]" Rachel Yates RN - 08/11/2019 2:27 AM PST paged: "E3Abner Zamora J. Admitted for hypergly and gastroparesis, Per order paging due to finger glucose check of 442, going to treat with 12 units insulin and also administer 12 units lantus as ordered. Mann Mckinley RN #[id number]" documented in this encounter H&P Notes Rigoberto Stafford MD - 08/10/2019 11:37 PM PST Patient Name/Age/: Mauri Levine 33 y.o. 1985 Date of Admission: 08/10/2019 Admitting Physician: Rigoberto Stafford MD Primary Care Physician: No primary care provider on file. Chief complaint/Reason for Admission or Consultation: Flareup of diabetic gastroparesis with intractable vomiting and dehydration, hyperglycemia History of Present Illness: Patient is a 33 y.o. male with a history of type I diabetes and chronic renal insufficiency (creatinine between 2 and 3), never hospitalized here before, usually goes to [facility], who presents with 2 days of increased vomiting. Then he noticed last night that his insulin pump ran out of insulin.He cannot recall anything that may have set off his vomiting. He has not had any recent infectious signs or symptoms such as fevers, cough, abdominal pain or diarrhea. In the emergency room, he is afebrile with mild tachycardia in the 110s, normotensive. CBC with a white count of 18.1, chemistries with a glucose of 526, BUN 59, creatinine 3.8, sodium 128, CO2 34, anion gap 14, alkaline phosphatase 147, beta hydroxybutyric acid greater than 2.0, venous lactate 2.47. After treatment with IV fluids and insulin, Chemstick glucose came down to 369. Repeat labs are pending. Past Medical History: Past Medical History: Diagnosis Date Anxiety Diabetes mellitus Gastroparesis Hypertension Neuropathy Renal disorder History reviewed. No pertinent surgical history. There is no immunization history on file for this patient. Medications Prior to Arrival: Prior to Admission medications Not on File Allergies: Allergies Allergen Reactions Compazine [Prochlorperazine] Other (See Comments) "Neuroleptic Malignant Syndrome, per SO" Reglan [Metoclopramide Hcl] Other (See Comments) "Tardive Diskinesia per SO" Social History: Social History Socioeconomic History Marital status: Single Spouse name: Not on file Number of children: Not on file Years of education: Not on file Highest education level: Not on file Occupational History Not on file Social Needs Financial resource strain: Not on file Food insecurity: Worry: Not on file Inability: Not on file Transportation needs: Medical: Not on file Non-medical: Not on file Tobacco Use Smoking status: Never Smoker Smokeless tobacco: Never Used Substance and Sexual Activity Alcohol use: Never Frequency: Never Drug use: Yes Frequency: 7.0 times per week Types: Marijuana Sexual activity: Not on file Lifestyle Physical activity: Days per week: Not on file Minutes per session: Not on file Stress: Not on file Relationships Social connections: Talks on phone: Not on file Gets together: Not on file Attends latter day service: Not on file Active member of club or organization: Not on file Attends meetings of clubs or organizations: Not on file Relationship status: Not on file Intimate partner violence: Fear of current or ex partner: Not on file Emotionally abused: Not on file Physically abused: Not on file Forced sexual activity: Not on file Other Topics Concern Not on file Social History Narrative Not on file Family History: History reviewed. No pertinent family history. Review of Systems: Aside from the aforementioned presenting symptoms in the HPI, the patient has CONSTITUTIONAL: No weight loss, fever, chills, weakness or fatigue. HEENT: Eyes: No visual loss, blurred vision, double vision or yellow sclerae. Ears, Nose, Throat: Nohearing loss, sneezing, congestion, runny nose or sore throat. SKIN: No rash or itching. CARDIOVASCULAR: No chest pain, chest pressure or chest discomfort. No palpitations or edema. RESPIRATORY: No shortness of breath, cough or sputum. GASTROINTESTINAL: He has had 2 days of anorexia, nausea, vomiting or diarrhea. No abdominal pain or blood. GENITOURINARY: No burning on urination. NEUROLOGICAL: No headache, dizziness, syncope, paralysis, ataxia, numbness or tingling in the extremities. No change in bowel or bladder control. MUSCULOSKELETAL: No muscle, back pain, joint pain or stiffness. HEMATOLOGIC: No anemia, bleeding or bruising. LYMPHATICS: No enlarged nodes. No history of splenectomy. PSYCHIATRIC: No history of depression or anxiety. ENDOCRINOLOGIC: No reports of sweating, cold or heat intolerance. No polyuria or polydipsia. ALLERGIES: No history of asthma, hives, eczema or rhinitis. Physical Exam: BP 132/76 | Pulse 113 | Temp 37.8 C (100 F) (Oral) | Resp 21 | Ht 1.702 m (5' 7") | Wt 68 kg (150 lb) | SpO2 97% | BMI 23.49 kg/m General Appearance: alert and oriented, resting comfortably in no acute distress HEENT: normocephalic and atraumatic, mucous membranes are moist, no pharyngeal erythema or exudate, PERRLA Neck: supple, no cervical lymphadenopathy or masses Heart: Tachycardic. No murmur, no gallops or rubs Lungs: clear to auscultation bilaterally Abdomen: soft, nontender and nondistended, normal bowel sounds, no organomegaly or masses Extremities: no clubbing, cyanosis, or edema. Range of movement intact, no tenderness Skin: no ecchymoses or rash Neurologic: alert and oriented, symmetric, no gross deficits Psychiatric mood and affect are appropriate Laboratory Review: All labs, diagnostic imaging, and EKG, when available, are personally reviewed by myself. Admission on 08/10/2019 Component Date Value White Blood Cells 08/10/2019 18.1* RBC 08/10/2019 4.61 Hemoglobin 08/10/2019 13.5 Hematocrit 08/10/2019 39.3 MCV 08/10/2019 85.2 MCH 08/10/2019 29.3 MCHC 08/10/2019 34.4 RDW 08/10/2019 12.9 Platelet Count 08/10/2019 322 MPV 08/10/2019 9.7 nRBC(auto) 08/10/2019 0.0 Neutrophils % (Auto) 08/10/2019 85.3 Lymphocytes % 08/10/2019 8.1 Monocytes % (Auto) 08/10/2019 5.8 Eosinophils % 08/10/2019 0.0 Basophils % 08/10/2019 0.7 Absolute Neutrophils 08/10/2019 15.4* Absolute Lymphocytes 08/10/2019 1.5 Absolute Monocytes 08/10/2019 1.0* Absolute Eosinophils 08/10/2019 0.0 Absolute Basophils 08/10/2019 0.1 Glucose 08/10/2019 526* BUN 08/10/2019 59* Creatinine 08/10/2019 3.88* eGFR 08/10/2019 18 Sodium 08/10/2019 128* Potassium 08/10/2019 3.7 Chloride 08/10/2019 80* CO2 08/10/2019 34* Anion Gap 08/10/2019 14 Calcium 08/10/2019 9.5 Total Protein 08/10/2019 8.6* Albumin 08/10/2019 4.1 Bilirubin Total 08/10/2019 0.4 Alkaline Phosphatase 08/10/2019 147* AST (SGOT) 08/10/2019 13* ALT (SGPT) 08/10/2019 25 Beta Hydroxybutyryric Ac* 08/10/2019 >2.00* Glucose, Fingerstick 08/10/2019 >500* Lactate, Venous 08/10/2019 2.47* Glucose, Fingerstick 08/10/2019 369* Assessment and Plan: Type 1 diabetes with hyperglycemia: Secondary to insulin pump malfunction complicated by recent flare up of diabetic gastroparesis and intractable vomiting. Ketones and lactate are up, suspected from starvation and dehydration, but anion gap is normal. Do not think this is severe DKA. Patient looks better than his numbers indicate; nontoxic, not tachypneic or in any distress, and physical exam is relatively benign. Blood sugar has come down with aggressive hydration and IV insulin. Labs will be rechecked. Cover with baseline Lantus and addition of sliding scale. Diabetic gastroparesis with cyclic vomiting: Improved now with hydration and Phenergan. Continue supportive care. Leukocytosis: Could be from the stress of vomiting compounded by dehydration. No localizing symptomsof infection, but he has a low-grade temperature. Blood cultures are drawn along with urinalysis andchest x-ray. Hold off antibiotics for now. Recheck labs and if leukocytosis persists, he'll need more of an infectious workup. Acute on chronic renal insufficiency: Patient reports his creatinine is usually between 2 and 3. Nowhigher from dehydration secondary to persistent vomiting. Hydrate with fluids, hold his ABBE inhibitor temporarily, and recheck labs. Rigoberto Stafford MD 08/10/2019 documented in this encounter ED Notes Nydia Mcclure RN - 08/10/2019 11:39 PM PST ED Progress Note: Patient provided ice chips. Okay per MD Greco. Nydia Mcclure RN Nydia Mcclure RN - 08/10/2019 11:24 PM PST MD Dougherty at bedside. Vanessa Celestin RN - 08/10/2019 11:09 PM PST ED Progress Note Tutu (Tracey) would like to be called when pt is moved to another room. Vanessa Celestin RN - 08/10/2019 10:52 PM PST MD Dixon at bedside. Guicho Dixon MD - 08/10/2019 9:43 PM PST Images from the original note were not included. CHIEF COMPLAINT: Chief Complaint Patient presents with Emesis Arrival Method: Car Escorted by: FAMILY MEMBER Primary Care Provider: No primary care provider on file.. This is a 33 y.o. male who presents with Hx of DMI and renal insufficiency presents with vomiting. Insulin pump "ran out". Tutu gave him the last dose this am. Glucose was 425 last night. All of this is preceeded by hx of gasroparesis. He has been in the ED many times. He gets "cyclic cycles" every so often. Last month: using IM phenergen. Gave it to him last night and this am.. He has intranasalketamine and not helping either. Every 45 minutes. Diarrhea yesterday and not much today. 583 glucose at 5pm. "nausea" no specific abdominal pain. Abs are sore only with vomiting" No chest pain or trouble breathing. No fevers. Frequent urination but no pain. Hx of chronic renal disorder. VM is his primary. He got 10 units of Humalog at 5 PM. He is accompanied by his Fiance who is a nurse and provides a very detailed medication list, portions of which are copied below. He normally uses a Novolog insulin pump however did not today. 12 am - 2 am: Basal rate 1.2; correction factor 1:45; carb ratio 1:13; target 120 2 am - 7 am: Basal rate 0.7; correction factor 1:45; carb ratio 1:13; target 140 7 am am - 12 am: Basal rate 1.2; correction factor 1:45; carb ratio 1:13; target 120 Additional daily medications: captopril, gabapentin, fluvoxamine, lipitor, clonidine 0.1 patch, domperidone, Cialis. PRN medications are not listed here but do include IM phenergan and IN ketamine (originally prescribed by his old GI doctor). Past Medical History: Diagnosis Date Anxiety Diabetes mellitus Gastroparesis Hypertension Neuropathy Renal disorder Type 1 diabetes mellitus with autonomic neuropathy History reviewed. No pertinent surgical history. Current Discharge Medication List CONTINUE these medications which have NOT CHANGED Details atorvastatin (LIPITOR) 40 MG tablet Take 40 mg by mouth nightly cloNIDine (CATAPRES-TTS) 0.1 mg/[address] 1 patch onto the skin every 7 days fluvoxaMINE (LUVOX) 50 MG tablet Take 50 mg by mouth nightly gabapentin (NEURONTIN) 300 MG capsule Take 600 mg by mouth 3 (three) times daily insulin lispro (INSULIN PUMP, PATIENT'S OWN,) Inject into the skin as needed 12am-2am Basal 1.2, correct factor 1:45, carb ratio 1:13, target 120 2am-7am Basal 0.7, correct factor 1:45, carb ratio 1:13, target 140 7am-12am Basal 1.2, correct factor 1:45, carb ratio 1:13, target 120 LORazepam (ATIVAN) 0.5 MG tablet Take 0.5 mg by mouth 3 (three) times daily as needed for Anxiety Indications: panic attack melatonin 10 mg Tab Take by mouth nightly as needed multivitamin (MULTIVITAMIN) tablet Take 1 tablet by mouth nightly promethazine (PHENERGAN) 25 mg/mL injection Inject 12.5 mg into the vein every 6 (six) hours as needed senna (SENOKOT) 8.6 mg tablet Take 8.6 mg by mouth nightly as needed for Constipation tadalafil (CIALIS) 10 MG tablet Take 5 mg by mouth nightly !! UNABLE TO FIND Take 10 mg by mouth 3 (three) times daily Domperidone Indications: 15-30 minutes before meals !! UNABLE TO FIND 50 mg by Nasal route 3 (three) times daily as needed Ketamine 50 mg/ml, 1-2 spraysinto each nostril TID PRN nausea and vomitting !! - Potential duplicate medications found. Please discuss with provider. ALLERGIES Compazine [prochlorperazine] and Reglan [metoclopramide hcl] SH Social History Tobacco Use Smoking status: Never Smoker Smokeless tobacco: Never Used Substance Use Topics Alcohol use: Never Frequency: Never REVIEW OF SYSTEMS: CONSTITUTIONAL : No fevers, general weakness CARDIOVASCULAR : No chest pain, no syncope RESPIRATORY : No Cough, No SOB. GI : Nausea, vomiting. No current abdominal pain, : Frequency. No dysuria MUSCULOSKELETAL : no fall. SKIN : No rash. HEME : No easy bleeding. PSYCH : No anxiety. NEUROLOGIC : No headache, mental status per above PHYSICAL EXAM: ED Triage Vitals Temp Heart Rate Resp BP SpO2 SPO2 Pulse Rate Pain Score 08/10/19204008/10/19204008/10/19204008/10/19204008/10/19204008/10/19210308/10/192040 37.8 C (100 F) 113 21 113/69 97 % 99 Five ED Encounter Vitals Date and Time Temp Pulse Resp BP SpO2 SPO2 Pulse Rate ID 08/10/192103 -- -- -- 146/91 98 % 99 ELP 08/10/192119 -- -- -- 174/87 -- -- 08/10/192128 -- -- -- -- 100 % 99 08/10/192133 -- -- -- 139/85 100 % 97 08/10/192203 -- -- -- 137/74 100 % 100 08/10/192218 -- -- -- 132/76 99 % 100 08/10/192240 -- -- -- -- 97 % 100 08/11/193 -- -- -- -- 99 % 105 JJ 08/11/19 0124 -- -- -- 153/79 99 % 103 JJ Subsequent vitals: Vitals: 08/11/19 0140 08/11/19 0523 08/11/19 0738 08/11/19 1230 BP: 180/86 162/82 138/72 161/82 BP Location: Left arm Left arm Left arm Left arm Pulse: 108 108 93 92 Resp: Temp: 36.5 C (97.7 F) 36.7 C (98.1 F) 37 C (98.6 F) 37.1 C (98.8 F) TempSrc: Oral Oral Oral Oral SpO2: 96% 99% 96% 96% Weight: 76.6 kg (168 lb 14 oz) Height: 1.702 m (5' 7") GENERAL : Patient is afebrile, Vital signs reviewed, Well appearing, Patient appears comfortable, HEAD : Normocephalic, Atraumatic EYES : Normal to inspection ENT : OP moist. Normal Ear inspection. NECK : Supple , normal inspection. No JVD. Normal Range of Motion. No meningismis. CARD : Regular rate and rhythm, heart sounds normal. RESP : No respiratory distress, breath sounds normal. ABD : no abdominal pain, no rlq tenderness, no llq tenderness, soft, no masses. BACK : Non-tender. No CVA tenderness. MUSC : Normal ROM, non-tender, no pedal edema. SKIN : Color normal, warm, dry. NEURO : no new focal deficits PSYCH : Mood/affect normal. ASSESSMENT: This is a 33 year old male with a history of IDDM who presents with complaints of general malaise inthe setting of hyperglycemia and GI loss. He does have a history of DKA. My primary suspicion is forDKA. His vomiting is likely due to his chronic diabetic gastroparesis. He and his fiance would like to start with phenergan vs haldol given concerns about QT prolongation. They are will to try haldol if an EKG is ordered first which I think is reasonable. We will resuscitate the patient with Insulin injections and IVF initially, with the plan to move to an insulin infusion and ICU admission if necessary. We will check serial BGLs. Work-up will consist of basic labs and beta-hydroxybutyric acid level. Given his low grade fever we will also check a lactate. Evaluation for source of infection: no obvious pulmonary, urinary source. No evidence for meningitis. He does not appear septic. I suspect that his lactate will be mildly elevated but not extraordinarily. Lab results noted below: Recent Results (from the past 48 hour(s)) CBC With Auto Differential Collection Time: 08/10/19 9:08 PM Result Value Ref Range White Blood Cells 18.1 (H) 3.8 - 11.0 k/ul RBC 4.61 4.20 - 5.70 M/uL Hemoglobin 13.5 13.2 - 17.0 g/dL Hematocrit 39.3 39.0 - 50.0 % MCV 85.2 80.0 - 100.0 fL MCH 29.3 27.0 - 34.0 pg MCHC 34.4 32.0 - 35.5 g/dL RDW 12.9 11.0 - 15.5 % Platelet Count 322 150 - 400 K/uL MPV 9.7 7.0 - 11.3 fL nRBC(auto) 0.0 0.0 - 2.0 /100 WBC Neutrophils % (Auto) 85.3 % Lymphocytes % 8.1 % Monocytes % (Auto) 5.8 % Eosinophils % 0.0 % Basophils % 0.7 % Absolute Neutrophils 15.4 (H) 1.9 - 7.4 k/uL Absolute Lymphocytes 1.5 1.0 - 3.9 k/uL Absolute Monocytes 1.0 (H) 0.0 - 0.8 k/uL Absolute Eosinophils 0.0 0.0 - 0.5 k/uL Absolute Basophils 0.1 0.0 - 0.1 k/uL Comprehensive metabolic panel Collection Time: 08/10/19 9:08 PM Result Value Ref Range Glucose 526 (HH) 65 - 99 mg/dL BUN 59 (H) 7 - 18 MG/DL Creatinine 3.88 (H) 0.70 - 1.30 mg/dL eGFR 18 m/m/1.73 Sodium 128 (L) 136 - 145 mmol/L Potassium 3.7 3.5 - 5.1 mmol/L Chloride 80 (L) 98 - 107 mmol/L CO2 34 (H) 21 - 32 mmol/L Anion Gap 14 5 - 16 mmol/L Calcium 9.5 8.5 - 10.1 mg/dL Total Protein 8.6 (H) 6.4 - 8.2 G/DL Albumin 4.1 3.4 - 5.0 G/DL Bilirubin Total 0.4 0.2 - 1.0 mg/dL Alkaline Phosphatase 147 (H) 45 - 117 U/L AST (SGOT) 13 (L) 15 - 37 U/L ALT (SGPT) 25 16 - 61 U/L Beta-Hydroxybutyric Acid Collection Time: 08/10/19 9:08 PM Result Value Ref Range Beta Hydroxybutyryric Acid >2.00 (HH) <0.30 mmol/L POCT glucose-Result Collection Time: 08/10/19 9:08 PM Result Value Ref Range Glucose, Fingerstick >500 (HH) 65 - 99 mg/dL Lactic Acid Whole Blood, Venous Collection Time: 08/10/19 9:20 PM Result Value Ref Range Lactate, Venous 2.47 (H) 0.40 - 2.00 mmol/L POCT glucose-Result Collection Time: 08/10/19 10:38 PM Result Value Ref Range Glucose, Fingerstick 369 (H) 65 - 99 mg/dL Basic metabolic panel Collection Time: 08/10/19 11:41 PM Result Value Ref Range Glucose 378 (H) 65 - 99 mg/dL BUN 59 (H) 7 - 18 MG/DL Creatinine 3.36 (H) 0.70 - 1.30 mg/dL eGFR 21 m/m/1.73 Sodium 135 (L) 136 - 145 mmol/L Potassium 3.2 (L) 3.5 - 5.1 mmol/L Chloride 90 (L) 98 - 107 mmol/L CO2 34 (H) 21 - 32 mmol/L Anion Gap 11 5 - 16 mmol/L Calcium 8.0 (L) 8.5 - 10.1 mg/dL POCT glucose-Result Collection Time: 08/11/19 2:22 AM Result Value Ref Range Glucose, Fingerstick 442 (H) 65 - 99 mg/dL Lactic Acid (Lactate) Collection Time: 08/11/19 2:28 AM Result Value Ref Range Lactate 1.1 0.4 - 2.0 mmol/L Basic metabolic panel Collection Time: 08/11/19 2:28 AM Result Value Ref Range Glucose 462 (H) 65 - 99 mg/dL BUN 54 (H) 7 - 18 MG/DL Creatinine 3.04 (H) 0.70 - 1.30 mg/dL eGFR 24 m/m/1.73 Sodium 134 (L) 136 - 145 mmol/L Potassium 3.7 3.5 - 5.1 mmol/L Chloride 90 (L) 98 - 107 mmol/L CO2 28 21 - 32 mmol/L Anion Gap 16 5 - 16 mmol/L Calcium 8.4 (L) 8.5 - 10.1 mg/dL CBC With Auto Differential Collection Time: 08/11/19 2:28 AM Result Value Ref Range White Blood Cells 15.7 (H) 3.8 - 11.0 k/ul RBC 3.88 (L) 4.20 - 5.70 M/uL Hemoglobin 11.4 (L) 13.2 - 17.0 g/dL Hematocrit 33.7 (L) 39.0 - 50.0 % MCV 86.8 80.0 - 100.0 fL MCH 29.3 27.0 - 34.0 pg MCHC 33.7 32.0 - 35.5 g/dL RDW 13.2 11.0 - 15.5 % Platelet Count 258 150 - 400 K/uL MPV 9.4 7.0 - 11.3 fL nRBC(auto) 0.0 0.0 - 2.0 /100 WBC Neutrophils % (Auto) 84.7 % Lymphocytes % 6.4 % Monocytes % (Auto) 8.3 % Eosinophils % 0.0 % Basophils % 0.6 % Absolute Neutrophils 13.3 (H) 1.9 - 7.4 k/uL Absolute Lymphocytes 1.0 1.0 - 3.9 k/uL Absolute Monocytes 1.3 (H) 0.0 - 0.8 k/uL Absolute Eosinophils 0.0 0.0 - 0.5 k/uL Absolute Basophils 0.1 0.0 - 0.1 k/uL Hemoglobin A1c Collection Time: 08/11/19 2:28 AM Result Value Ref Range Hemoglobin A1C 10.4 (H) 4.0 - 5.6 % Estimated Average Glucose (eAG) 252 (H) <154 mg/dL POCT glucose-Result Collection Time: 08/11/19 3:17 AM Result Value Ref Range Glucose, Fingerstick 463 (H) 65 - 99 mg/dL Urinalysis Collection Time: 08/11/19 3:51 AM Result Value Ref Range UA Color Yellow Yellow UA Appearance Clear Clear UA Glucose >500 (!) Negative mg/dL UA Bilirubin Negative Negative UA Ketones 20 (!) Negative mg/dL UA Specific [place] 1.015 1.001 - 1.030 UA Blood Small (!) Negative UA pH 5.0 5.0 - 8.0 UA Protein 100 (!) Negative mg/dL UA Nitrite Negative Negative UA Leukocyte Esterase Negative Negative UA WBC 0-5 0 - 5 /HPF UA RBC 0-2 0 - 2 /HPF UA Mucus 1+ UA Hyaline Casts 3-10 (!) 0 - 2 /LPF POCT glucose-Result Collection Time: 08/11/19 4:09 AM Result Value Ref Range Glucose, Fingerstick 361 (H) 65 - 99 mg/dL POCT glucose-Result Collection Time: 08/11/19 5:24 AM Result Value Ref Range Glucose, Fingerstick 288 (H) 65 - 99 mg/dL POCT glucose-Result Collection Time: 08/11/19 6:38 AM Result Value Ref Range Glucose, Fingerstick 232 (H) 65 - 99 mg/dL POCT glucose-Result Collection Time: 08/11/19 7:27 AM Result Value Ref Range Glucose, Fingerstick 186 (H) 65 - 99 mg/dL POCT glucose-Result Collection Time: 08/11/19 8:27 AM Result Value Ref Range Glucose, Fingerstick 145 (H) 65 - 99 mg/dL FilmArray Respiratory Panel 2 Collection Time: 08/11/19 9:13 AM Result Value Ref Range Adenovirus Not Detected Not Detected Coronavirus 229E Not Detected Not Detected Coronavirus HKU1 Not Detected Not Detected Coronavirus NL63 Not Detected Not Detected Coronavirus OC43` Not Detected Not Detected Human Metapneumovirus Not Detected Not Detected Human Rhinovirus/Enterovirus Not Detected Not Detected Influenza A Not Detected Not Detected Influenza B Not Detected Not Detected Parainfluenza Virus 1 Not Detected Not Detected Parainfluenza Virus 2 Not Detected Not Detected Parainfluenza Virus 3 Not Detected Not Detected Parainfluenza Virus 4 Not Detected Not Detected Respiratory Syncytial Virus Not Detected Not Detected Bordetella parapertussis HO1993 Not Detected Not Detected Bordetella pertussis (ptxP) Not Detected Not Detected Chlamydia pneumoniae Not Detected Not Detected Mycoplasma pneumoniae Not Detected Not Detected Rapid drug screen, urine Collection Time: 08/11/19 10:09 AM Result Value Ref Range Amphetamines, Ur Negative Negative Barbiturate Screen, Ur Negative Negative Benzodiazepine Screen, Urine Negative Negative Cocaine(Metab.)Screen, Urine Negative Negative Methamphetamine Screen,Urine Negative Negative Methadone Screen, Urine Negative Negative Opiate Screen, Urine Negative Negative Oxycodone Screen, Ur Negative Negative PCP Scrn, Ur Negative Negative Propoxyphene Screen,Urine Negative Negative Tetrahydrocannabinol (THC) Screen,Urine Positive (!) Negative Tricyclic Antidepressant Screen, Urine Negative Negative POCT glucose-Result Collection Time: 08/11/19 12:41 PM Result Value Ref Range Glucose, Fingerstick 83 65 - 99 mg/dL POCT glucose-Result Collection Time: 08/11/19 4:01 PM Result Value Ref Range Glucose, Fingerstick 148 (H) 65 - 99 mg/dL Imaging in ED X-ray Chest 1 view (AP/PA only) Final Result by Kandy Willoughby MD (08/11 26) Clear lungs. RADIA Dictated By: Case Gaitan MD 2019-08-11 00:26:52.633 Signed By: Case Gaitan MD 2019-08-11 00:27:54.0 Transcribed By: Case Gaitan 2019-08-11 00:27:54.43 Referring Provider Line: [phone] SITE ID: [id number] Medications, medical history, allergies, surgical history, hospitalizations, family history, social history, ROS and vitals entered by nursing staff and reviewed by myself. EMERGENCY DEPARTMENT COURSE: Labs: Urine: negative other than Ketones BMP: glucose: 526, creatine: 3.88, c02; 34, K: 3.2 Lactate 2.47, normal gap Wbc: 18.1, hct: 39.3 Ketones: positive Cxr: negative ED course: patient improved with fluids and insulin. His renal insufficiency has increased to 3.8 (baseline 2) Nausea improved with phenergen. Patient will need admission for dehydration, hyperglycemia, and renal changes. I spoke with DR Stafford who ageed to admit patient and saw him in ED Timeline 10:54 pm Reevaluated the patient, discussed results and plan, he understands and is agreeable, ER Course: All pertinent laboratory testing/imaging studies discussed with patient/ family if available. Diagnosis to this point and need for admission clarified. Discussion conerning admitting physician undertaken as well. Any questions prior to admission are answered. Diagnosis: 1. Dehydration 2. Renal insufficiency 3. Type 1 diabetes mellitus with hyperglycemia 4. Gastroparesis . DISPOSITION: The patient is in stable condition on admission. ED Visit Patient roomed in ED 08/10/192046 Guicho Dixon MD Attending Physician [facility] Parts of this note have been entered by Abdiel Heath in the role of a scribe. It has been reviewedand edited by Billy Melendrez MD. Guicho Dixon MD 08/11/191907 Guicho Dixon MD 08/11/191916 Vanessa Celestin RN - 08/10/2019 9:33 PM PST Critical lab results received at 2132 from ER lab bench. Lab result: beta hydroxy >2 Results were read back and confirmed. Dr. Dixon was notified of these results. Rebeca Middleton RN - 08/10/2019 8:39 PM PST BIB SO for emesis every 45 minutes today, since yesterday. DM1 and CKD3, but does not have his insulin pump connected currently. Last BG 583 at 1700 today. Has been self injecting with humalog. Arrives alert, oriented, appearing unwell, in a hospital wheelchair. documented in this encounter Miscellaneous Notes Plan of Care - Phyllis Larson RN - 08/11/2019 1:48 PM PST Plan of Care Note Med-Surg Clinical and Patient Goals: # 1 Clinical Goal for the Shift: safety # 2 Clinical Goal for the Shift: rest # 3 Clinical Goal for the Shift: mobility Goals Not Progressing: blood sugar control Barriers Towards Attaining Goals: type 1 diabetes Activity: Activity : Other (Comment)(reposition for bp) Level of Assistance: Independent Significant Shift Events: pt has been resting and blood sugars have been stable Plan for Next Shift: rest, monitor blood sugar, and control nausesa Plan of Care - Rachel Yates RN - 08/11/2019 6:24 AM PST Plan of Care Note Med-Surg Clinical and Patient Goals: # 1 Clinical Goal for the Shift: no emisis # 2 Clinical Goal for the Shift: safety # 3 Clinical Goal for the Shift: void Goals Not Progressing: none Barriers Towards Attaining Goals: none Activity: Significant Shift Events: pt a/ox4, Sinus tach. Currently vomiting, voiding, stable ambulation. Please review prog notes throughout shift. Plan for Next Shift: monitor blood sugars. MALLORY-Visit History - Mallory Interface Model - 08/10/2019 8:31 PM PST Mallory has no Care Guidelines for this patient. Prescription Review PDMP Report [PDMP ERROR] [PDMP ERROR] PDMP query found no report. ED/C VISIT TRACKING (3 MO.) 08/10/2019 20:31 Sid LOREDO TYPE: Emergency DIAGNOSES: - Emesis 06/30/2019 13:30 Merged With [facility] Nikita Jensen [place] TYPE: Emergency COMPLAINT: - abdominal pain DIAGNOSES: - 1 Type 1 diabetes w diabetic autonomic (poly)neuropathy 06/29/2019 11:21 [facility] TYPE: Emergency 06/12/2019 17:26 [facility]ing [facility] TYPE: Emergency 05/29/2019 11:09 Ying Peg[facility]ero [facility] TYPE: Emergency INPATIENT VISIT TRACKING (1 MO.) No inpatient visits to display in this time frame Rosalie VISIT COUNT (12 MO.) 2 [facility] (ID) 0 Medicaid [place] Dx 1 [facility] H. 0 Medicaid NE Dx 5 [facility]. 0 Medicaid NE Dx 4 Ying Peguero Yao 0 Medicaid [place] Dx TOTAL 12 TOTAL MEDICAID NE DX 0 NOTE: Visits indicate total known visits. Medicaid [place] Dx are the number of primary diagnoses on the [facility] non-emergent dx list. CARE PROVIDERS CLAUDIA SIEGEL L, Nurse Practitioner: Psychiatric/Mental Health Current WENDY L PHONE: Unknown JOSE, SEEBER [facility] HEBERT PHONE: [phone] [facility] Primary Care Current PHONE: Unknown HEBERT [facility] Current PHONE: [phone] DENTAL ONLY Primary Care Current PHONE: [phone] [email or web address] Security Events No recent Security Events currently on file documented in this encounter Plan of Treatment Not on filedocumented as of this encounter Procedures Procedure Name Priority Date/Time Associated Comments Diagnosis POCT GLUCOSE Routine 08/11/2019 7:00 PM Results f or this PST procedure are i n the results section. POCT GLUCOSE Routine 08/11/2019 4:01 PM Results f or this PST procedure are i n the results section. POCT GLUCOSE Routine 08/11/2019 12:41 Results for this PM PST procedure are i n the results section. RAPID DRUG SCREEN, Routine 08/11/2019 10:09 Resul ts for this URINE AM PST procedure are i n the results section. FILMAR[facility] RESPIRATORY Routine 08/11/2019 9:13 AM Results for this PANEL 2 PST procedure are i n the results section. POCT GLUCOSE Routine 08/11/2019 8:27 AM Results f or this PST procedure are i n the results section. POCT GLUCOSE Routine 08/11/2019 7:27 AM Results f or this PST procedure are i n the results section. POCT GLUCOSE Routine 08/11/2019 6:38 AM Results f or this PST procedure are i n the results section. POCT GLUCOSE Routine 08/11/2019 5:24 AM Results f or this PST procedure are i n the results section. POCT GLUCOSE Routine 08/11/2019 4:09 AM Results f or this PST procedure are i n the results section. URINALYSIS WITH REFLEX STAT 08/11/2019 3:51 AM Results for this TO CULTURE IF PST procedure are in INDICATED the results section. POCT GLUCOSE Routine 08/11/2019 3:17 AM Results f or this PST procedure are i n the results section. CULTURE BLOOD, STAT 08/11/2019 2:28 AM Results for this VENIPUNCTURE PST procedure are i n the results section. CBC WITH AUTO Routine 08/11/2019 2:28 AM Results for this DIFFERENTIAL PST procedure are i n the results section. LACTIC ACID (LACTATE) STAT 08/11/2019 2:28 AM Results for this PST procedure are i n the results section. HEMOGLOBIN A1C Add-On 08/11/2019 2:28 AM Results for this PST procedure are i n the results section. BASIC METABOLIC PANEL Routine 08/11/2019 2:28 AM Results for this PST procedure are i n the results section. POCT GLUCOSE Routine 08/11/2019 2:22 AM Results f or this PST procedure are i n the results section. CULTURE BLOOD, STAT 08/11/2019 2:06 AM Results for this VENIPUNCTURE PST procedure are i n the results section. XR CHEST PA OR AP STAT 08/11/2019 12:12 Result s for this AM PST procedure are i n the results section. BASIC METABOLIC PANEL STAT 08/10/2019 11:41 Re sults for this PM PST procedure are i n the results section. POCT GLUCOSE Routine 08/10/2019 10:38 Results for this PM PST procedure are i n the results section. LACTIC ACID WHOLE STAT 08/10/2019 9:20 PM Resu lts for this BLOOD, VENOUS PST procedure are in the results section. BETA-HYDROXYBUTYRIC STAT 08/10/2019 9:08 PM Re sults for this ACID PST procedure are i n the results section. CBC WITH AUTO STAT 08/10/2019 9:08 PM Results for this DIFFERENTIAL PST procedure are i n the results section. POCT GLUCOSE Routine 08/10/2019 9:08 PM Results f or this PST procedure are i n the results section. COMPREHENSIVE STAT 08/10/2019 9:08 PM Results for this METABOLIC PANEL PST procedure ar e in the results section. documented in this encounter Results (ABNORMAL) POCT glucose-Result (08/11/2019 7:00 PM PST) Analysis Performed At Path logist Time Signature Glucose, 167 (H) 65 - 99 08/11/2019 [facility] Fingerstick mg/dL 7:02 PM PST Specimen Anatomical Collection Method Collection Time Receive d Time (Source) Location / / Volume Laterality Blood specimen 08/11/2019 7:00 PM 020 7:02 (specimen) PST PM PST (Blood) Poct Results Unsolicted POCT ORDERABLES - DEVICE Performing Organization Address City/State/ZIP Code Phon e Number [facility] [address] [place] [address] (ABNORMAL) POCT glucose-Result (08/11/2019 4:01 PM PST) Analysis Performed At Patho logist Time Signature Glucose, 148 (H) 65 - 99 08/11/2019 [facility] Fingerstick mg/dL 4:12 PM PST Specimen Anatomical Collection Method Collection Time Receive d Time (Source) Location / / Volume Laterality Blood specimen 08/11/2019 4:01 PM 020 4:12 (specimen) PST PM PST (Blood) Poct Results Unsolicted POCT ORDERABLES - DEVICE Performing Organization Address City/[facility]/ZIP Code Phon e Number [facility] [address] [place] [address] POCT glucose-Result (08/11/2019 12:41 PM PST) P athologist Signature Glucose, 83 65 - 99 08/11/2019 [facility] Fingerstick mg/dL 12:43 PM PST Specimen Anatomical Collection Method Collection Time Receive d Time (Source) Location / / Volume Laterality Blood specimen 08/11/2019 12:41 0 (specimen) PM PST 12:43 PM PST (Blood) Poct Results Unsolicted POCT ORDERABLES - DEVICE Performing Organization Address City/[facility]/ZIP [facility] Phon e Number [facility] [address] [place] [address] [phone] (ABNORMAL) Rapid drug screen, urine (08/11/2019 10:09 AM PST) Component Value Ref Range Test Analysis Performed Pathologis t Method Time At Signature Amphetamines, Ur Negative Negative 08/11/2019 [facility] 10:28 AM PST Barbiturate Screen, Ur Negative Negative 08/11/2019 [facility] 10:28 AM PST Benzodiazepine Screen, Negative Negative 08/11/2019 [facility] Urine 10:28 AM PST Cocaine(Metab.)Screen, Negative Negative 08/11/2019 [facility] Urine 10:28 AM PST Methamphetamine Negative Negative 08/11/2019 [facility] Screen,Urine 10:28 AM PST Methadone Screen, Urine Negative Negative 08/11/2019 [facility] 10:28 AM PST Opiate Screen, Urine Negative Negative 08/11/2019 [facility] 10:28 AM PST Oxycodone Screen, Ur Negative Negative 08/11/2019 [facility] 10:28 AM PST PCP Scrn, Ur Negative Negative 08/11/2019 [facility] 10:28 AM PST Propoxyphene Negative Negative 08/11/2019 [facility] Screen,Urine 10:28 AM PST Tetrahydrocannabinol Positive Negative 08/11/2019 [facility] (THC) Screen,Urine (A) 10:28 AM PST Comment: This is a screening test, results are pr esumptive positive. Confirmations are indicated when clinical inconsistencies are noted. Tricyclic Antidepressant Negative Negative 08/11/2019 10:2 8 AM PST [facility] Screen, Urine Specimen Anatomical Collection Method Collection Time Receive d Time (Source) Location / / Volume Laterality Urine specimen 08/11/2019 10:09 0 (specimen) AM PST 10:16 AM PST (Urine) Narrative [facility] - 08/11/2019 10:28 AM PST -- Drug Screen Cutoff -- Amphetamines: 500 ng/mL Benzodiazepines: 150 ng/mL Barbiturate: 200 ng/mL Cocaine: 150 ng/mL Methamphetamine: 500 ng/mL Methadone: 200 ng/mL Opiates: 100 ng/mL Oxycodone: 100 ng/mL Phencyclidine: 25 ng/mL Propoxyphene: 300 ng/mL Tetrahydrocanna: 50 ng/mL Tri. Antidepress: 300 ng/mL -- Assay Comments -- This panel for drug of abuse testing was performed on urine and is for medical treatment purposes only. Results are unconfirmed and cannot be used for employment or legal testing. This is a screening test, results are pr esumptive positive. Confirmations are indicated when clinical inconsistencies are noted. AMPHETAMINES: Assay is not specific fo r MDMA and PREM. Testing by an alternate methodology such as GC/MS should be performed when these drugs of abuse are suspected. OPIATES: The opiate screen is specific for codeine, morphine and semi- synthetic opiates hydrocodone, and hydromorphone. Other semi-synthetic opiates (i.e. oxymorphone) may test negative by this scre en and should be screened and confirmed using the GC-MS methodology. Billy Melendrez MD URINE ORDERABLES Performing Organization Address City/State/ZIP Code Phon e Number [facility] [address] [place] [address] FilmArray Respiratory Panel 2 (08/11/2019 9:13 AM PST) [facility] Method Time Signature Adenovirus Not Not 08/11/2019 [facility] Detected Detected 10:21 AM PST Coronavirus 229E Not Not 08/11/2019 [facility] Detected Detected 10:21 AM PST Coronavirus HKU1 Not Not 08/11/2019 [facility] Detected Detected 10:21 AM PST Coronavirus NL63 Not Not 08/11/2019 [facility] Detected Detected 10:21 AM PST Coronavirus OC43` Not Not 08/11/2019 [facility] Detected Detected 10:21 AM PST Human Not Not 08/11/2019 [facility] Metapneumovirus Detected Detected 10:21 AM PST Human Not Not 08/11/2019 [facility] Rhinovirus/Enterov Detected Detected 10:21 AM irus PST Influenza A Not Not 08/11/2019 [facility] Detected Detected 10:21 AM PST Influenza B Not Not 08/11/2019 [facility] Detected Detected 10:21 AM PST Parainfluenza Not Not 08/11/2019 [facility] Virus 1 Detected Detected 10:21 AM PST Parainfluenza Not Not 08/11/2019 [facility] Virus 2 Detected Detected 10:21 AM PST Parainfluenza Not Not 08/11/2019 [facility] Virus 3 Detected Detected 10:21 AM PST Parainfluenza Not Not 08/11/2019 [facility] Virus 4 Detected Detected 10:21 AM PST Respiratory Not Not 08/11/2019 [facility] Syncytial Virus Detected Detected 10:21 AM PST Bordetella Not Not 08/11/2019 [facility] parapertussis Detected Detected 10:21 AM [id number] PST Bordetella Not Not 08/11/2019 [facility] pertussis (ptxP) Detected Detected 10:21 AM PST Chlamydia Not Not 08/11/2019 [facility] pneumoniae Detected Detected 10:21 AM PST Mycoplasma Not Not 08/11/2019 [facility] pneumoniae Detected Detected 10:21 AM PST Specimen (Source) Anatomical Collection Method Collection Time Re ceived Time Location / / Volume Laterality Nasopharyngeal 08/11/2019 9:13 08/11/2019 (qualifier value) AM PST 9:26 AM PS T (Nasopharyngeal Swab) Billy Melendrez MD MICROBIOLOGY - GENERAL ORDER EDDIE Performing Organization Address City/State/ZIP Code Phon e Number [facility] [address] [place] [address] (ABNORMAL) POCT glucose-Result (08/11/2019 8:27 AM PST) Analysis Performed At Patho logist Time Signature Glucose, 145 (H) 65 - 99 08/11/2019 [facility] Fingerstick mg/dL 8:29 AM PST Specimen Anatomical Collection Method Collection Time Receive d Time (Source) Location / / Volume Laterality Blood specimen 08/11/2019 8:27 AM 020 8:29 (specimen) PST AM PST (Blood) Poct Results Unsolicted POCT ORDERABLES - DEVICE Performing Organization Address [facility] Phon e Number [facility] [address] [place] [address] (ABNORMAL) POCT glucose-Result (08/11/2019 7:27 AM PST) Analysis Performed At Patho logist Time Signature Glucose, 186 (H) 08/11/2019 [facility] Fingerstick mg/dL 7:29 AM PST Specimen Anatomical Collection Method Collection Time Receive d Time (Source) Location / / Volume Laterality Blood specimen 08/11/2019 7:27 AM 020 7:29 (specimen) PST AM PST (Blood) Poct Results Unsolicted POCT ORDERABLES - DEVICE Performing Organization Address [facility] Phon e Number [facility] [address] [place] [address] (ABNORMAL) POCT glucose-Result (08/11/2019 6:38 AM PST) Analysis Performed At Patho logist Time Signature Glucose, 232 (H) 08/11/2019 [facility] Fingerstick mg/dL 6:39 AM PST Specimen Anatomical Collection Method Collection Time Receive d Time (Source) Location / / Volume Laterality Blood specimen 08/11/2019 6:38 AM 020 6:39 (specimen) PST AM PST (Blood) Poct Results Unsolicted POCT ORDERABLES - DEVICE Performing Organization Address [facility] Phon e Number [facility] [address] [place] [address] (ABNORMAL) POCT glucose-Result (08/11/2019 5:24 AM PST) Analysis Performed At Patho logist Time Signature Glucose, 288 (H) 08/11/2019 [facility] Fingerstick mg/dL 5:25 AM PST Specimen Anatomical Collection Method Collection Time Receive d Time (Source) Location / / Volume Laterality Blood specimen 08/11/2019 5:24 AM 020 5:25 (specimen) PST AM PST (Blood) Poct Results Unsolicted POCT ORDERABLES - DEVICE Performing Organization Address [facility]/ZIP [facility] Phon e Number [facility] [address] [place] [address] [phone] (ABNORMAL) POCT glucose-Result (08/11/2019 4:09 AM PST) Analysis Performed At Patho logist Time Signature Glucose, 361 (H) 65 - 99 08/11/2019 [facility] Fingerstick mg/dL 4:11 AM PST Specimen Anatomical Collection Method Collection Time Receive d Time (Source) Location / / Volume Laterality Blood specimen 08/11/2019 4:09 AM 020 4:11 (specimen) PST AM PST (Blood) Poct Results Unsolicted POCT ORDERABLES - DEVICE Performing Organization Address City/[facility] Phon e Number [facility] [address] [place] [address] [phone] (ABNORMAL) Urinalysis (08/11/2019 3:51 AM PST) Patholo gist Method Time Signature UA Color Yellow Yellow 08/11/2019 [facility] 4:07 AM PST UA Appearance Clear Clear 08/11/2019 [facility] 4:07 AM PST UA Glucose >500 (A) Negative 08/11/2019 [facility] mg/dL 4:07 AM PST UA Bilirubin Negative Negative 08/11/2019 [facility] 4:07 AM PST UA Ketones 20 (A) Negative 08/11/2019 [facility] mg/dL 4:07 AM PST UA Specific 1.015 1.001 - 08/11/2019 [facility] [place] 1.030 4:07 AM PST UA Blood Small (A) Negative 08/11/2019 [facility] 4:07 AM PST UA pH 5.0 5.0 - 8.0 08/11/2019 [facility] 4:07 AM PST UA Protein 100 (A) Negative 08/11/2019 [facility] mg/dL 4:07 AM PST UA Nitrite Negative Negative 08/11/2019 [facility] 4:07 AM PST UA Leukocyte Negative Negative 08/11/2019 [facility] [place] 4:07 AM PST UA WBC 0-5 0 - 5 /HPF 08/11/2019 [facility] 4:07 AM PST UA RBC 0-2 0 - 2 /HPF 08/11/2019 [facility] 4:07 AM PST UA Mucus 1+ 08/11/2019 [facility] 4:07 AM PST UA Hyaline 3-10 (A) 0 - 2 /LPF 08/11/2019 [facility] Casts 4:07 AM PST Specimen Anatomical Collection Method Collection Time Receive d Time (Source) Location / / Volume Laterality Urine specimen 08/11/2019 3:51 AM 020 3:59 (specimen) PST AM PST (Urine) Rigoberto Stafford MD URINE ORDERABLES Performing Organization Address City/State/ZIP [facility] Phon e Number [facility] [address] [place] [address] [phone] (ABNORMAL) POCT glucose-Result (08/11/2019 3:17 AM PST) Analysis Performed At Patho logist Time Signature Glucose, 463 (H) 65 - 99 08/11/2019 [facility] Fingerstick mg/dL 3:18 AM PST Specimen Anatomical Collection Method Collection Time Receive d Time (Source) Location / / Volume Laterality Blood specimen 08/11/2019 3:17 AM 020 3:18 (specimen) PST AM PST (Blood) Poct Results Unsolicted POCT ORDERABLES - DEVICE Performing Organization Address City/[facility] Phon e Number [facility] [address] [place] [address] [phone] (ABNORMAL) Hemoglobin A1c (08/11/2019 2:28 AM PST) Analysis Performed At Patho logist Time Signature Hemoglobin A1C 10.4 (H) 4.0 - 5.6 08/11/2019 [facility] % 9:19 AM PST Estimated 252 (H) <154 mg/dL 08/11/2019 [facility] Average Glucose 9:19 AM PST (eAG) Specimen Anatomical Collection Method / Collection Time Recei pierre Time (Source) Location / Volume Laterality Blood specimen Venipuncture / 08/11/2019 2:28 08/11/19 20 2:39 (specimen) Unknown AM PST AM PST Narrative [facility] - 08/11/2019 9:19 AM PST Hgb A1c ADA 2012 Diagnostic Criteria: A1c values of 5.7-6.4% indicate an incre ased risk for diabetes mellitus. A1c values of greater than or equal to 6 .5% are diagnostic of diabetes mellitus. Diagnosis should be confirmed by repeati ng the hemoglobin A1c test . The ADA recommends A1c values of less th an 7% as the goal for diabetic therapy. The testing method used is NGSP certified and traceable to the Diabetes Control and Complications Trial Reference method. eAG Reference Range: The ADA considers an eAG less than 154 m g/dL the goal of diabetic therapy. Estimated average glucose calculated by ADA recommended formula. Billy Melendrez MD LAB BLOOD ORDERABLES Performing Organization Address [facility] Phon e Number [facility] [address] [place] [address] [phone] Lactic Acid (Lactate) (08/11/2019 2:28 AM PST) athologist Signature Lactate 1.1 0.4 - 2.0 08/11/2019 3:13 [facility] mmol/L AM PST Specimen Anatomical Collection Method / Collection Time Recei pierre Time (Source) Location / Volume Laterality Blood Plasma Venipuncture / 08/11/2019 2:28 08/11/2019 2:42 Unknown AM PST AM PST Rigoberto Stafford MD LAB BLOOD ORDERABLES Performing Organization Address [facility] Phon e Number [facility] [address] [place] [address] [phone] Culture Blood, Venipuncture (08/11/2019 2:28 AM PST) athologist Signature Culture No Growth at 08/16/2019 [facility] 5 days 2:45 AM PST Specimen Anatomical Collection Method / Collection Time Recei pierre Time (Source) Location / Volume Laterality Blood specimen Venipuncture / 08/11/2019 2:28 08/11/19 20 2:40 (specimen) Unknown AM PST AM PST (Blood) Rigoberto Stafford MD MICROBIOLOGY - GENERAL ORDER EDDIE Performing Organization Address [facility] Phon e Number [facility] [address] [place] [address] (ABNORMAL) CBC With Auto Differential (08/11/2019 2:28 AM PST) [facility] Method Time Signature White Blood 15.7 (H) 3.8 - 11.0 08/11/2019 [facility] Cells k/ul 2:42 AM PST RBC 3.88 (L) 4.20 - 08/11/2019 [facility] 5.70 M/uL 2:42 AM PST Hemoglobin 11.4 (L) 13.2 - 08/11/2019 [facility] 17.0 g/dL 2:42 AM PST Hematocrit 33.7 (L) 39.0 - 08/11/2019 [facility] 50.0 % 2:42 AM PST MCV 86.8 80.0 - 08/11/2019 [facility] 100.0 fL 2:42 AM PST MCH 29.3 27.0 - 08/11/2019 [facility] 34.0 pg 2:42 AM PST MCHC 33.7 32.0 - 08/11/2019 [facility] 35.5 g/dL 2:42 AM PST RDW-CV 13.2 11.0 - 08/11/2019 [facility] 15.5 % 2:42 AM PST Platelet Count 258 150 - 400 08/11/2019 [facility] K/uL 2:42 AM PST MPV 9.4 7.0 - 11.3 08/11/2019 [facility] fL 2:42 AM PST nRBC(auto)% 0.0 0.0 - 2.0 08/11/2019 [facility] /100 WBC 2:42 AM PST Neutrophils % 84.7 % 08/11/2019 [facility] (Auto) 2:42 AM PST Lymphocytes % 6.4 % 08/11/2019 [facility] 2:42 AM PST Monocytes % 8.3 % 08/11/2019 [facility] (Auto) 2:42 AM PST Eosinophils % 0.0 % 08/11/2019 [facility] 2:42 AM PST Basophils % 0.6 % 08/11/2019 [facility] 2:42 AM PST Absolute 13.3 (H) 1.9 - 7.4 08/11/2019 [facility] Neutrophils k/uL 2:42 AM PST Absolute 1.0 1.0 - 3.9 08/11/2019 [facility] Lymphocytes k/uL 2:42 AM PST Absolute 1.3 (H) 0.0 - 0.8 08/11/2019 [facility] Monocytes k/uL 2:42 AM PST Absolute 0.0 0.0 - 0.5 08/11/2019 [facility] Eosinophils k/uL 2:42 AM PST Absolute 0.1 0.0 - 0.1 08/11/2019 [facility] Basophils k/uL 2:42 AM PST Specimen Anatomical Collection Method / Collection Time Recei pierre Time (Source) Location / Volume Laterality Blood specimen Venipuncture / 08/11/2019 2:28 08/11/19 20 2:39 (specimen) Unknown AM PST AM PST Rigoberto Stafford MD LAB BLOOD ORDERABLES Performing Organization Address City/State/ZIP Code Phon e Number [facility] [address] [place] [address] (ABNORMAL) Basic metabolic panel (08/11/2019 2:28 AM PST) athologist Signature Glucose 462 (H) 65 - 99 08/11/2019 [facility] mg/dL 3:00 AM [facility] BUN 54 (H) 7 - 18 08/11/2019 [facility] MG/DL 3:00 AM [facility] Creatinine 3.04 (H) 0.70 - 1.30 08/11/2019 [facility] mg/dL 3:00 AM [facility] eGFR 24 m/m/1.73 08/11/2019 [facility] 3:00 AM [facility] Comment: GFR < 60: Chronic kidney disease if foun d over a 3 month period. Sodium 134 (L) 136 - 145 mmol/L 08/11/2019 3:00 AM [facility] Potassium 3.7 3.5 - 5.1 mmol/L 08/11/2019 3:00 AM [facility] Chloride 90 (L) 98 - 107 mmol/L 08/11/2019 3:00 AM [facility] CO2 28 21 - 32 mmol/L 08/11/2019 3:00 AM [facility] Anion Gap 16 5 - 16 mmol/L 08/11/2019 3:00 AM [facility] Calcium 8.4 (L) 8.5 - 10.1 mg/dL 08/11/2019 3:00 AM PST [facility] Specimen Anatomical Collection Method / Collection Time Recei pierre Time (Source) Location / Volume Laterality Blood specimen Venipuncture / 08/11/2019 2:28 08/11/19 20 2:39 (specimen) Unknown AM PST AM PST Narrative [facility] - 08/11/2019 3:00 AM PST Glucose Reference Range : ADA 2012 Diagnostic Categories for nonpr egnant adults: Impaired fasting glucose 100-125 mg/dL A fasting glucose result of 126 mg/dL or greater indicates diabetes if the abnormality is confirmed on a subsequent day. A random glucose of 200 mg/dL or greater in a patient with symptoms of hyperglycemia or hyperglycemic crisis, indicates diabetes. Rigoberto Stafford MD LAB BLOOD ORDERABLES Performing Organization Address City/[facility] Phon e Number [facility] [address] [place] [address] (ABNORMAL) POCT glucose-Result (08/11/2019 2:22 AM PST) Analysis Performed At Patho logist Time Signature Glucose, 442 (H) 65 - 99 08/11/2019 [facility] Fingerstick mg/dL 2:28 AM PST Specimen Anatomical Collection Method Collection Time Receive d Time (Source) Location / / Volume Laterality Blood specimen 08/11/2019 2:22 AM 2:28 (specimen) PST AM PST (Blood) Poct Results Unsolicted POCT ORDERABLES - DEVICE Performing Organization Address [facility]/ZIP [facility] Phon e Number [facility] [address] [place] [address] Culture Blood, Venipuncture (08/11/2019 2:06 AM PST) P athologist Signature Culture No Growth at 08/16/2019 [facility] 5 days 2:45 AM PST Specimen Anatomical Collection Method / Collection Time Recei pierre Time (Source) Location / Volume Laterality Blood specimen Venipuncture / 08/11/2019 2:06 08/11/19 20 2:40 (specimen) Unknown AM PST AM PST (Blood) Rigoberto Stafford MD MICROBIOLOGY - GENERAL ORDER EDDIE Performing Organization Address City/[facility]/ZIP [facility] Phon e Number [facility] [address] [place] [address] X-ray Chest 1 view (AP/PA only) (08/11/2019 12:12 AM PST) Anatomical Region Laterality Modality Chest Computed Radiography Specimen (Source) Anatomical Collection Method Collection Time Re ceived Time Location / / Volume Laterality 08/11/2019 12:12 AM PST Impressions 08/11/2019 12:27 AM PST Clear lungs. RADIA Dictated By: Case Gaitan MD 2019-07 00:26:52.633 Signed By: Case Gaitan MD 2019-07-19 5 00:27:54.0 Transcribed By: Case Gaitan 2019-07 00:27:54.43 Referring Provider Line: [phone] SITE ID: [id number] Narrative 08/11/2019 12:27 AM PST EXAM: CHEST RADIOGRAPHY EXAM DATE: 08/11/2019 12:12 AM. CLINICAL HISTORY: Shortness of breath. COMPARISON: None. TECHNIQUE: 1 view. FINDINGS: Lungs/Pleura: No focal opacities evident . No pleural effusion. No pneumothorax. Mediastinum: Within exam limitations, th e cardiomediastinal contour is normal. Other: Intact osseous thorax. Procedure Note Kandy Willoughby MD - 08/11/2019Form atting of this note might be different from the original. EXAM: CHEST RADIOGRAPHY EXAM DATE: 08/11/2019 12:12 AM. CLINICAL HISTORY: Shortness of breath. COMPARISON: None. TECHNIQUE: 1 view. FINDINGS: Lungs/Pleura: No focal opacities evident . No pleural effusion. No pneumothorax. Mediastinum: Within exam limitations, th e cardiomediastinal contour is normal. Other: Intact osseous thorax. IMPRESSION: Clear lungs. RADIA Dictated By: Case Gaitan MD 2019-07 00:26:[id number] Signed By: Case Gaitan MD 2019-07-19 5 00:27:54.0 Transcribed By: Case Gaitan 2019-07 00:27:54.43 Referring Provider Line: [phone] SITE ID: [id number] Rigoberto Stafford MD IMG DIAGNOSTIC IMAGING ORDER EDDIE (ABNORMAL) Basic metabolic panel (08/10/2019 11:41 PM PST) P athologist Signature Glucose 378 (H) 65 - 99 08/11/2019 [facility] [facility] mg/dL 1:04 AM [facility] BUN 59 (H) 7 - 18 08/11/2019 [facility] MG/DL 1:04 AM [facility] Creatinine 3.36 (H) 0.70 - 1.30 08/11/2019 [facility] mg/dL 1:04 AM [facility] eGFR 21 m/m/1.73 08/11/2019 [facility] 1:04 AM [facility] Comment: GFR < 60: Chronic kidney disease if foun d over a 3 month period. Sodium 135 (L) 136 - 145 mmol/L 08/11/2019 1:04 AM [facility] Potassium 3.2 (L) 3.5 - 5.1 mmol/L 08/11/2019 1:04 AM [facility] Chloride 90 (L) 98 - 107 mmol/L 08/11/2019 1:04 AM [facility] CO2 34 (H) 21 - 32 mmol/L 08/11/2019 1:04 AM [facility] Anion Gap 11 5 - 16 mmol/L 08/11/2019 1:04 AM [facility] Calcium 8.0 (L) 8.5 - 10.1 mg/dL 08/11/2019 1:04 AM [facility] Comment: This result represents a signif icant change from the previous value. Please correlate with the Patient's clinical co ndition. Specimen Anatomical Collection Method Collection Time Receive d Time (Source) Location / / Volume Laterality Blood specimen Line / Unknown 08/10/2019 11:41 020 (specimen) PM PST 12:06 AM PST Narrative [facility] - 08/11/2019 1:04 AM [facility] Glucose Reference Range : ADA 2012 Diagnostic Categories for nonpr egnant adults: Impaired fasting glucose 100-125 mg/dL A fasting glucose result of 126 mg/dL or greater indicates diabetes if the abnormality is confirmed on a subsequent day. A random glucose of 200 mg/dL or greater in a patient with symptoms of hyperglycemia or hyperglycemic crisis, indicates diabetes. Rigoberto Stafford MD LAB BLOOD ORDERABLES Performing Organization Address City/State/ZIP Code Phon e Number [facility] [address] [place] [address] (ABNORMAL) POCT glucose-Result (08/10/2019 10:38 PM PST) Analysis Performed At Patho logist Time Signature Glucose, 369 (H) 65 - 99 08/10/2019 [facility] Fingerstick mg/dL 10:52 PM PST Specimen Anatomical Collection Method Collection Time Receive d Time (Source) Location / / Volume Laterality Blood specimen 08/10/2019 10:38 0 (specimen) PM PST 10:52 PM PST (Blood) Poct Results Unsolicted POCT ORDERABLES - DEVICE Performing Organization Address [facility] Phon e Number [facility] [address] [place] [address] (ABNORMAL) Lactic Acid Whole Blood, Venous (08/10/2019 9:20 PM PST) P athologist Signature Lactate, 2.47 (H) 0.40 - 08/10/2019 [facility] Venous 2.00 10:43 PM PST mmol/L Specimen Anatomical Collection Method Collection Time Receive d Time (Source) Location / / Volume Laterality Blood specimen 08/10/2019 9:20 PM 020 9:34 (specimen) PST PM PST (Blood) Guicho Dixon MD RESPIRATORY CARE ORDERABLES Performing Organization Address [facility] Phon e Number [facility] [address] [place] [address] (ABNORMAL) POCT glucose-Result (08/10/2019 9:08 PM PST) Patholo gist Method Time Signature Glucose, >500 (HH) 65 - 99 08/10/2019 [facility] Fingerstick mg/dL 9:09 PM PST Specimen Anatomical Collection Method Collection Time Receive d Time (Source) Location / / Volume Laterality Blood specimen 08/10/2019 9:08 PM 020 9:09 (specimen) PST PM PST (Blood) Narrative [facility] - 08/10/2019 9:09 PM PST Glu2: Notified Poct Results Unsolicted POCT ORDERABLES - DEVICE Performing Organization Address [facility] Phon e Number [facility] [address] [place] [address] [phone] (ABNORMAL) Beta-Hydroxybutyric Acid (08/10/2019 9:08 PM PST) Patholo gist Method Time Signature Beta >2.00 <0.30 08/10/2019 [facility] Hydroxybutyryric (HH) mmol/L 9:33 PM PST Acid Specimen Anatomical Collection Method Collection Time Receive d Time (Source) Location / / Volume Laterality Blood specimen Line / Unknown 08/10/2019 9:08 PM 08/10 9:11 (specimen) PST PM PST Guicho Dixon MD LAB BLOOD ORDERABLES Performing Organization Address City/State/ZIP Code Phon e Number [facility] [address] [place] [address] (ABNORMAL) Comprehensive metabolic panel (08/10/2019 9:08 PM PST) P athologist Signature Glucose 526 (HH) 65 - 99 08/10/2019 [facility] mg/dL 9:49 PM PST BUN 59 (H) 7 - 18 08/10/2019 [facility] MG/DL 9:49 PM PST Creatinine 3.88 (H) 0.70 - 1.30 08/10/2019 [facility] mg/dL 9:49 PM PST eGFR 18 m/m/1.73 08/10/2019 [facility] 9:49 PM PST Comment: GFR < 60: Chronic kidney disease if foun d over a 3 month period. Patient race not entered. If patient i s multiply the calculated GFR by 1.21 Sodium 128 (L) 136 - 145 mmol/L 08/10/2019 9:49 PM [facility] Potassium 3.7 3.5 - 5.1 mmol/L 08/10/2019 9:49 PM [facility] Chloride 80 (L) 98 - 107 mmol/L 08/10/2019 9:49 PM [facility] CO2 34 (H) 21 - 32 mmol/L 08/10/2019 9:49 PM [facility] Anion Gap 14 5 - 16 mmol/L 08/10/2019 9:49 PM [facility] Calcium 9.5 8.5 - 10.1 mg/dL 08/10/2019 9:49 PM [facility] Total Protein 8.6 (H) 6.4 - 8.2 G/DL 08/10/2019 9:49 PM PS T [facility] Albumin 4.1 3.4 - 5.0 G/DL 08/10/2019 9:49 PM [facility] Bilirubin Total 0.4 0.2 - 1.0 mg/dL 08/10/2019 9:49 PM [facility] Alkaline Phosphatase 147 (H) 45 - 117 U/L 08/10/2019 9:49 PM [facility] AST (SGOT) 13 (L) 15 - 37 U/L 08/10/2019 9:49 PM [facility] ALT (SGPT) 25 16 - 61 U/L 08/10/2019 9:49 PM [facility] Specimen Anatomical Collection Method Collection Time Receive d Time (Source) Location / / Volume Laterality Blood specimen Line / Unknown 08/10/2019 9:08 PM 08/10 9:11 (specimen) PST PM PST Narrative [facility] - 08/10/2019 9:49 PM [facility] Glucose Reference Range : ADA 2012 Diagnostic Categories for nonpr egnant adults: Impaired fasting glucose 100-125 mg/dL A fasting glucose result of 126 mg/dL or greater indicates diabetes if the abnormality is confirmed on a subsequent day. A random glucose of 200 mg/dL or greater in a patient with symptoms of hyperglycemia or hyperglycemic crisis, indicates diabetes. Guicho Dixon MD LAB BLOOD ORDERABLES Performing Organization Address City/State/ZIP Code Phon e Number [facility] [address] [place] [address] (ABNORMAL) CBC With Auto Differential (08/10/2019 9:08 PM PST) [facility] gist Method Time Signature White Blood 18.1 (H) 3.8 - 11.0 08/10/2019 [facility] Cells k/ul 9:16 PM PST RBC 4.61 4.20 - 08/10/2019 [facility] 5.70 M/uL 9:16 PM PST Hemoglobin 13.5 13.2 - 08/10/2019 [facility] 17.0 g/dL 9:16 PM PST Hematocrit 39.3 39.0 - 08/10/2019 [facility] 50.0 % 9:16 PM PST MCV 85.2 80.0 - 08/10/2019 [facility] 100.0 fL 9:16 PM PST MCH 29.3 27.0 - 08/10/2019 [facility] 34.0 pg 9:16 PM PST MCHC 34.4 32.0 - 08/10/2019 [facility] 35.5 g/dL 9:16 PM PST RDW-CV 12.9 11.0 - 08/10/2019 [facility] 15.5 % 9:16 PM PST Platelet Count 322 150 - 400 08/10/2019 [facility] K/uL 9:16 PM PST MPV 9.7 7.0 - 11.3 08/10/2019 [facility] fL 9:16 PM PST nRBC(auto)% 0.0 0.0 - 2.0 08/10/2019 [facility] /100 WBC 9:16 PM PST Neutrophils % 85.3 % 08/10/2019 [facility] (Auto) 9:16 PM PST Lymphocytes % 8.1 % 08/10/2019 [facility] 9:16 PM PST Monocytes % 5.8 % 08/10/2019 [facility] (Auto) 9:16 PM PST Eosinophils % 0.0 % 08/10/2019 [facility] 9:16 PM PST Basophils % 0.7 % 08/10/2019 [facility] 9:16 PM PST Absolute 15.4 (H) 1.9 - 7.4 08/10/2019 [facility] Neutrophils k/uL 9:16 PM PST Absolute 1.5 1.0 - 3.9 08/10/2019 [facility] Lymphocytes k/uL 9:16 PM PST Absolute 1.0 (H) 0.0 - 0.8 08/10/2019 [facility] Monocytes k/uL 9:16 PM PST Absolute 0.0 0.0 - 0.5 08/10/2019 [facility] Eosinophils k/uL 9:16 PM PST Absolute 0.1 0.0 - 0.1 08/10/2019 [facility] Basophils k/uL 9:16 PM PST Specimen Anatomical Collection Method Collection Time Receive d Time (Source) Location / / Volume Laterality Blood specimen Line / Unknown 08/10/2019 9:08 PM 08/10 9:11 (specimen) PST PM PST Guicho Dixon MD LAB BLOOD ORDERABLES Performing Organization Address City/State/ZIP Code Phon e Number [facility] [address] [place] [address] [phone] documented in this encounter Visit Diagnoses Diagnosis Hyperglycemia due to type 1 diabetes beth litus ([facility]) - Primary Dehydration Renal insufficiency Unspecified disorder of kidney and urete r Type 1 diabetes mellitus with hyperglyce nancy ([facility]) Gastroparesis Dehydration Lactic acidosis Acidosis Gastroparesis ROSALIO (acute kidney injury) (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) documented in this encounter Admitting Diagnoses Diagnosis Gastroparesis documented in this encounter Administered Medications Inactive Administered Medications - up to 3 most recent administrations Medication Order MAR Action Action Date Dose Rate Site atorvastatin (LIPITOR) tablet 40 mg 40 mg, Oral, Nightly First dose on 08/11/19 at 2100 carvediloL (COREG) tablet 6.25 mg Given 08/11/2019 7:56 PM PST 6.25 mg 6.25 mg, Oral, Once On 08/11/19 at 1945, For 1 dose, GIVE WITH MEALS/FOOD cloNIDine (CATAPRES-TTS) 0.1 mg/24 hr 1 patch 1 patch, Transdermal, Administer over 7 Days, Weekly, First dose on 08/11/19 at 1415 fluvoxaMINE (LUVOX) tablet 50 mg 50 mg, Oral, Nightly First dose on 08/11/19 at 2100 gabapentin (NEURONTIN) capsule 300 mg 300 mg, Oral, 3 times daily First dose on 08/11/19 at 1415 insulin glargine (LANTUS) injection 12 Given 08/11/2019 2:43 AM PST 12 Units Units 12 Units, Subcutaneous, 2 times daily First dose on 08/11/19 at 0200, - Contact prescriber and HOLD if patient is NPO, stopped tube feeding, or decreased intake by 50% Discard Waste in Black Bin insulin glargine (LANTUS) injection 6 Un its Given 08/11/2019 9:12 AM PST 6 Units 6 Units, Subcutaneous, 2 times daily First dose on 08/11/19 at 0900, - Contact prescriber and HOLD if patient is NPO, stopped tube feeding, or decreased intake by 50% Discard Waste in Black Bin insulin lispro (HumaLOG) injection 0-10 Units 0-10 Units, Subcutaneous, See admin inst ructions, Starting on 08/11/19 at 0818 insulin lispro (HumaLOG) injection 2-12 Given 08/11/2019 5:37 AM PST 8 Units Units 2-12 Units, Subcutaneous, See admin instructions, Starting on 08/11/19 at 0148 Given 08/11/2019 2:43 AM PST 12 Units insulin regular (HumuLIN-R) injection 5 Given 08/11/2019 3:47 AM PST 5 Units Units 5 Units, Intravenous, Once On 08/11/19 at 0330, For 1 dose, Discard Waste in Black Bin insulin regular (HumuLIN-R) injection 7 Given 08/10/2019 10:08 P M PST 7 Units Units 7 Units (rounded from 6.8 Units = 0.1 Units/kg 68 kg), Intravenous, Once as needed, High Blood Sugar, Load dose prior to infusion . Starting on Tue08/10/19 at 2148, For 1 dose, Load dose prior to infusion. Check blood glucose 15 minutes after bolus. Discard Waste in Black Bin LORazepam (ATIVAN) injection 0.5-1 mg Given 08/11/2019 2:23 PM PST 0.5 mg 0.5-1 mg, Intravenous, Every 4 hours PRN, Anxiety, Seizures, severe nausea Starting on 08/11/19 at 0529 Given 08/11/2019 5:37 AM PST 1 mg ondansetron (ZOFRAN) injection 4 mg 4 mg, Intravenous, Every 6 hours PRN, Na usea, Vomiting Starting on 08/11/19 at 0148, If ord ered IV route: may give undiluted by slow IV push over 1/2 to 2 minutes ondansetron (ZOFRAN) injection 4 mg Given 08/11/2019 1:03 AM PST 4 mg 4 mg, Intravenous, Every 6 hours PRN, Nausea, Vomiting Starting on 08/11/19 at 0027 ondansetron (ZOFRAN) tablet 8 mg 8 mg, Oral, Every 6 hours PRN, Nausea, V omiting Starting on 08/11/19 at 0148 pantoprazole (PROTONIX) injection 40 mg Given 08/11/2019 1:08 PM PST 40 mg 40 mg, Intravenous, Every 12 hours First dose on 08/11/19 at 0245, Dilute with 10 mL of 0.9% NaCl. Given 08/11/2019 2:51 AM PST 40 mg promethazine (PHENERGAN) injection 12.5 mg Given 08/10/2019 11:08 PM PST 12.5 mg 12.5 mg, Intravenous, Every 6 hours PRN, if adequate IV for IV push Starting on Tue08/10/19 at 2152 Given 08/10/2019 10:07 PM PST 12.5 mg promethazine (PHENERGAN) injection 12.5 mg Given 08/11/2019 2:52 AM PST 12.5 mg 12.5 mg, Intravenous, Every 6 hours PRN, Nausea, Vomiting Starting on Tue08/11/19 at 0148 sodium chloride 0.9 % BOLUS New Bag 08/10/2019 10:42 PM PST 2, 000 mLs 2000 mL/hr infusion 2,000 mL 2,000 mL (2 L), Intravenous, Administer over 1 Hours, Once, On Tue08/10/19 at 2231, For 1 dose sodium chloride 0.9 % infusion New Bag 08/10/2019 9:16 PM PST 1,000 mLs 1000 mL/hr 1,000 mL at 1,000 mL/hr, Intravenous, Once, On Tue08/10/19 at 2049, For 1 dose, 1000mL sodium chloride 0.9 % infusion New Bag 08/11/2019 7:37 AM PST 200 mL/hr at 200 mL/hr, Intravenous, Continuous, Starting on Tue08/11/19 at 0200, For 12 hours Continue Current Bag 08/11/2019 4:57 AM PST 200 mL/hr sodium chloride 0.9 % Continue Current Bag 08/11/2019 4:02 PM PST 125 mL/hr infusion at 125 mL/hr, Intravenous, Continuous, Starting on Tue08/11/19 at 0900 Rate/Dose Verify 08/11/2019 1:50 PM PST 125 mL/hr New Bag 08/11/2019 12:36 PM PST 125 mL/hr sodium chloride 0.9 % IV bolus 500 Given 08/11/2019 2:43 AM PST 500 mLs 500 mL/hr mL 500 mL, Intravenous, Administer over 1 Hours, Once, On 08/11/19 at 0245, For 1 dose sodium chloride 0.9 % IV bolus 500 Given 08/11/2019 3:48 AM PST 500 mLs 500 mL/hr mL 500 mL, Intravenous, Administer over 1 Hours, Once, On Tue08/11/19 at 0330, For 1 dose documented in this encounter Active and Recently Administered Medications Times are shown in PST. Scheduled Medication Order 08/09/2019 08/10/2019 08/11/2019 atorvastatin (LIPITOR) tablet 40 mg 2100 (Canceled Entry - Provider: Automatic Transfer Provider - Comment: Automatically canceled at discontinue of medication order) 40 mg, Oral, Nightly First dose on 08/11/19 at 2100 carvediloL (COREG) tablet 6.25 mg (COMPLETED) 195 (Given - Provider: Tiara Carpenter RN) 6.25 mg, Oral, Once 08/11/19 at 1945, For 1 dose, GIVE WITH MEALS/FOOD cloNIDine (CATAPRES-TTS) 0.1 mg/24 hr 1 patch 1442 (Not Given - Provider: Phyllis Larson RN - Reason: Other - Comment: changed night) 1 patch, Transdermal, Administer over 7 Days, Weekly, First dose on 08/11/19 at 1415 fluvoxaMINE (LUVOX) tablet 50 mg 2099 (Canceled Entry - Provider: Automatic Transfer Provider - Comment: Automatically canceled at discontinue of medication order) 50 mg, Oral, Nightly First dose on 08/11/19 at 2100 gabapentin (NEURONTIN) capsule 300 mg 1454 (Not Given - Provider: Phyllis Larson RN - Reason: Patient/family refused)2099 (Canceled Entry - Provider: Automatic Transfer Provider - Comment: Automatically canceled at discontinue of medication order) 300 mg, Oral, 3 times daily First dose on 08/11/19 at 1415 insulin glargine (LANTUS) injection 12 Units (CANCELED) 0243 (Given - Provider: Rachel Yates RN) 12 Units, Subcutaneous, 2 times daily First dose on 08/11/19 at 0200, - Contact prescriber and HOLD if patient is NPO, stopped tube feeding, or decreased intake by 50% Discard Waste in Black Bin insulin glargine (LANTUS) injection 6 Units 0912 (Given - Provider: Phyllis Larson, NICOLE)2100 (Canceled Entry - Provider: Automatic Transfer Provider - Comment: Automatically canceled at discontinue of medication order) 6 Units, Subcutaneous, 2 times daily First dose on 08/11/19 at 0900, - Contact prescriber and HOLD if patient is NPO, stopped tube feeding, or decreased intake by 50% Discard Waste in Black Bin insulin lispro (HumaLOG) injection 0-10 Units 0827 (Not Given - Provider: Phyllis Larson RN - Reason: Order parameters not met - Comment: [phone] (Not Given - Provider: Phyllis Larson RN - Reason: Order parameters not met - Comment: [phone]) 0-10 Units, Subcutaneous, See admin instructions, Starting S at 08/11/19 at 0818 1602 (Not Given - Provider: Hemalatha vaughan RN - Reason: Order parameters not met - Comment: [phone] (Not Given - Provider: Hemalatha Topete RN - Reason: Patient/family refused - Comment: BS [phone] - pt declined slidin g scale as he said he was discharging and would continue his insulin pump at home.) insulin lispro (HumaLOG) injection 2-12 Units (CANCELED) 0243 (Given - Provider: Rachel Yates RN)0537 (Given - Provider: Rachel Yates RN) 2-12 Units, Subcutaneous, See admin instructions, Starting S at 08/11/19 at 0148 insulin regular (HumuLIN-R) injection 5 Units (COMPLETED) 0347 (Given - Provider: Rachel Yates RN) 5 Units, Intravenous, Once 08/11/19 at 0330, For 1 dose, Discard Waste in Black Bin pantoprazole (PROTONIX) injection 40 mg 0251 (Given - Provider: Rachel Yates RN)1308 (Given - Provider: Phyllis Larson, NICOLE) 40 mg, Intravenous, Every 12 hours First dose on 08/11/19 at 0245, Dilute with 10 mL of 0.9% NaCl. sodium chloride 0.9 % BOLUS infusion 2,000 mL (COMPLETED) 224 (New Bag - Provider: Vanessa Celestin RN) 0150 (Unknown Stop - Provider: Juan Yates RN) 2,000 mL (2 L), Intravenous, Administer over 1 Hours, Once, 08/10/19 at 2231, For 1 dose sodium chloride 0.9 % infusion 1,000 mL (COMPLETED) 211 (New Bag - Provider: Vanessa Celestin RN)224 (Stopped - Provider: Vanessa Celestin RN) at 1,000 mL/hr, Intravenous, Once, 08/10/19 at 2049, For 1 do se, 1000mL sodium chloride 0.9 % IV bolus 500 mL (COMPLETED) 0243 (Given - Provider: Rachel Yates, RN) 500 mL, Intravenous, Administer over 1 H ours, Once, 08/11/19 at 0245, For 1 dose sodium chloride 0.9 % IV bolus 500 mL (COMPLETED) 0348 (Given - Provider: Rachel Yates, RN) 500 mL, Intravenous, Administer over 1 H ours, Once, 08/11/19 at 0330, For 1 dose Continuous Medication Order 08/09/2019 08/10/2019 08/11/2019 sodium chloride 0.9 % infusion (CANCELED) 0457 (Continue Current Bag - Provider: Rachel Yates, NICOLE)0737 (New Bag - Provider: Phyllis Larson, NICOLE)1007 (Stopped - Provider: Phyllis Larson, RN) at 200 mL/hr, Intravenous, Continuous, S tarting 08/11/19 at 0200, For 12 hours sodium chloride 0.9 % infusion 1 007 (Continue Current Bag - Provider: Phyllis Larson, NICOLE)1236 (New Bag - Provider: Phyllis Larson, NICOLE)1350 (Rate/Dose Verify - Provider: Phyllis Larson, NICOLE)1602 (Continue Current Bag - Provider: Hemalatha Topete, NICOLE) at 125 mL/hr, Intravenous, Continuous, Starting 08/11/19 at 0 900 PRN Medication Order 08/09/2019 08/10/2019 08/11/2019 dextran 70-hypromellose (NATURAL BALANCE TEARS/ARTIFICIAL TEARS) (0.1%-0.3%) ophthalmic soln, 1-2 drop 1-2 drop, Both Eyes, Every 2 hour PRN, D ry Eyes Starting 08/11/19 at 0148 dextrose 50% syringe, 25 mL 25 mL, Intravenous, As needed, Low blood sugar Starting 08/11/19 at 0148, If BG less than 45 mg/dL, repeat BG X 1, administer dextrose. If BG 45-70 mg/dL, repeat BG X 1, administer 15 g carbohy drate snack or dextrose if NPO. insulin regular (HumuLIN-R) injection 7 Units (COMPLETED) 2207 (Given - Provider: Vanessa Celestin, RN) 7 Units (rounded from 6.8 Units = 0.1 Un its/kg 68 kg), Intravenous, Once as needed, High Blood Sugar, Load dose prior to infusion. Starting 08/10/19 at 2148, For 1 dose, Load dose prior to inf usion. Check blood glucose 15 minutes after bolus. Discard Waste in Black Bin lidocaine HCl (XYLOCAINE, UROJET) 2 % Jelly 1 each As needed, Starting 08/11/19 at 0148, Until 08/11/19 at 22 20 LORazepam (ATIVAN) injection 0.5-1 mg 0537 (Given - Provider: Rachel Yates, RN)1423 (Given - Provider: Phyllis Larson RN) 0.5-1 mg, Intravenous, Every 4 hours PRN , Anxiety, Seizures, severe nausea Starting 08/11/19 at 0529 menthol (HALLS) lozenge 1 lozenge 1 lozenge, Oral, As needed, Sore Throat, Sore throat Starting 08/11/19 at 0148 ondansetron (ZOFRAN) injection 4 mg(Linked Group 1) 4 mg, Intravenous, Every 6 hours PRN, Na usea, Vomiting Starting 08/11/19 at 0148, If ordered IV route: may give undiluted by slow IV push over 1/2 to 2 minutes ondansetron (ZOFRAN) injection 4 mg (CANCELED) 0103 (Given - Provider: Anahy Lawrence RN) 4 mg, Intravenous, Every 6 hours PRN, Na usea, Vomiting Starting 08/11/19 at 0027 ondansetron (ZOFRAN) tablet 8 mg(Linked Group 1) 8 mg, Oral, Every 6 hours PRN, Nausea, V omiting Starting 08/11/19 at 0148 promethazine (PHENERGAN) injection 12.5 mg (CANCELED) 2206 (Given - Provider: Vanessa Celestin, RN)2308 (Given - Provider: Allan Soto RN) 12.5 mg, Intravenous, Every 6 hours PRN, if adequate IV for IV push Starting 08/10/19 at 2152 promethazine (PHENERGAN) injection 12.5 mg 0252 (Given - Provider: Rachel Yates RN) 12.5 mg, Intravenous, Every 6 hours PRN, Nausea, Vomiting Starting 08/11/19 at 0148 sodium chloride (OCEAN) 0.65 % nasal spray 1 spray 1 spray, Each Nare, As needed, Irritatio n, dry nose Starting 08/11/19 at 0148 Linked Groups Order Group 1: ondansetron (ZOFRAN) tablet 8 mgJump to med 8 mg, Oral, Every 6 hours PRN, Nausea, V omiting Starting 08/11/19 at 0148 Or ondansetron (ZOFRAN) injection 4 mgJump to med 4 mg, Intravenous, Every 6 hours PRN, Na usea, Vomiting Starting 08/11/19 at 0148
If ordered IV route: may give undiluted by slow IV push over 1/2 to 2 minutes
documented in this encounter
--- OUTSIDE RECORDS SUMMARY | 2022-07-24 16:41 | External Medical Summary | Encounter Summary ---
:1985 Author Organization [facility] Medical nter Address [address] [place] [address] Care Team Providers Name Role Phone Unavailable Primary Care Provider Unavailable Reason for Visit Reason Comments Emesis Encounter Details Date Type Department Care Team Description 05/14/2020 - Emergency [facility] Ghazalvam, Felix, Gastroparesis (Primary Dx); 05/15/[address] Non-intractable vomiting with nausea, un specified vomiting type; [place] [address] ROSALIO (acute kidney injury) (H CC); [phone] [place] [address] Social History Tobacco Use Types Packs/Day Years [...] Sign Reading Time Taken Comments Blood Pressure 187/99 05/15/2020 12:29 AM PDT Pulse - - Temperature 37.2 C (99 F) 05/14/2020 8:02 PM PDT Respiratory Rate 18 05/14/2020 8:02 PM PDT Oxygen Saturation 97% 05/15/2020 12:59 AM PDT Inhaled Oxygen Concentration - - Weight 86.2 kg (190 lb) 05/14/2020 8:02 PM PDT Height - - Body Mass Index 29.76 08/11/2019 1:40 AM PST documented in this encounter Discharge Instructions Discharge InstructionsFelix Lugo MD - 05/15/2020 12:11 AM PDT Your symptoms improved after IV fluids and medication. Please continue to stay hydrated and use medications as needed at home. Follow up with your PCP and/or clinical quality analyst in 2-3 days. Return for anyacute worsening or other concerns. Return to the emergency department in the next 12-24 hrs if your condition worsens. If you develop increasing pain, fevers, or concerns. Contact your primary care doctor or referral physician in next 48 hrs if not improving. If you do not have a primary care doctor or need a specialist, a referral will be given to you with these discharge instructions. If you have questions concerning your care or need further instructions, please contact the emergency department at [phone] Your emergency physician today is Dr. Brittney M.D Follow up with provider as indicated above documented in this encounter Medications at Time [...] documented as of this encounter ED Notes Vanessa Celestin RN - 05/15/2020 1:05 AM PDT Discharge instructions reviewed. Patient verbalizes understanding. No further questions. WC with SO upon discharge. VSS. Khari Franks RN - 05/14/2020 11:17 PM PDT MD at bedside. Khari Franks RN - 05/14/2020 11:13 PM PDT Pt endorses nausea relief, denies pain at this time. Jocy Luciano RN - 05/14/2020 9:26 PM PDT IV therapy so far, unsuccessful, hot packs in place. Pt offered alternative methods of antinausea med (IM vs PO), pt does not find these effective, as they use them at home Jocy Luciano RN - 05/14/2020 8:59 PM PDT IV therapy arrives to bedside Jocy Luciano RN - 05/14/2020 8:57 PM PDT IV therapy again contacted. Jocy Luciano RN - 05/14/2020 8:32 PM PDT Failed IV attempt by this insurance underwriter, IV therapy paged Jocy Luciano RN - 05/14/2020 8:09 PM PDT MD at bedside Blanca Cabrales RN - 05/14/2020 8:00 PM PDT Emergency Department Triage Chief Complaint: n/v/d, back pain, hiccups Mode of arrival: POV Accompanied by: , Tracey RN Onset of symptoms: 48 hrs ago Treatments prior to arrival: phenergan @ 0800 and zofran @ 0800 Subjective Narrative Hx gastroparesis. No fevers Felix Lugo MD - 05/14/2020 7:57 PM PDT Images from the original note were not included. EMERGENCY DEPARTMENT ENCOUNTER CHIEF COMPLAINT Chief Complaint Patient presents with Emesis HPI Mauri Levine is a 34 y.o. male with a history of type 1 diabetics, diabetic gastroparesis, diabetickidney disease, hypertension, and hyperlipidemia who presents with complaints of acute on chronic nausea and vomiting, with this most recent flare-up beginning 48 hours prior to arrival and unresponsive to IM phenergan (one dose today). The patient has a long history of diabetic gastroparesis and is known to our ER. This is similar to prior episodes and he arrives for symptom management. No hematochezia. No melena. Onset: 48 hours ago. Timing: intermittent. Description: yellow, small specs of bright red blood in emesis, no gross hemaemesis. Modifying factors: historically improved with IV benadryl, IV Zofran, and IVF. Context: upset about the current geopolitical climate here in [place], specifically the confirmationof a new steam shovel runner eight days before a highly polarized election. Associated with: back and abdominal "muscular" cramping. DM1: Diagnosed at age 13. A1c on 02/13/2020 was 9.7%. Per 05/07/2020 endocrinology note: "he is demonstrating persistent hyperglycemia with significant variability". Multiple admissions for DKA, last [id number]. Diabetic autonomic neuropathy, diabetic gastroparesis (gastric pacemaker installed 01/30/2020, on domperidone 10 mg 3 x)., diabetic kidney disease. Reports his sugars have been "pretty darn good",BGL 179 currently, CGM was non-functional for a portion of yesterday, recently changed to a new pumpthe Control IQ with tandem pump, denies having difficulty with the new pump. Accompanied by significant other of 7 years, she is a RN and recently switched from our hospital to [facility]. PAST MEDICAL HISTORY Past Medical History: Diagnosis Date Anxiety Diabetes mellitus Gastroparesis Hypertension Neuropathy Renal disorder Type 1 diabetes mellitus with autonomic neuropathy SURGICAL HISTORY History reviewed. No pertinent surgical history. CURRENT MEDICATIONS Current Outpatient Medications Medication Sig Dispense Refill atorvastatin (LIPITOR) 40 MG tablet Take 40 mg by mouth nightly carvediloL (COREG) 3.125 MG tablet Take 1 tablet (3.125 mg total) by mouth 2 (two) times daily with meals 60 tablet 0 cloNIDine (CATAPRES-TTS) 0.2 mg/24 hr apply 1 patch topically every week fluvoxaMINE (LUVOX) 50 MG tablet Take 100 mg by mouth nightly furosemide (LASIX) 20 MG tablet take 1 tablet by mouth once daily if needed for EDEMA/HYPERTENSIO... (REFER TO PRESCRIPTION NOTES). gabapentin (NEURONTIN) 300 MG capsule Take 600 mg by mouth 3 (three) times daily insulin lispro (INSULIN PUMP, PATIENT'S OWN,) Inject into the skin as needed 12am-2am Basal 1.2, correct factor 1:45, carb ratio 1:13, target 120 2am-7am Basal 0.7, correct factor 1:45, carb ratio 1:13, target 140 7am-12am Basal 1.2, correct factor 1:45, carb ratio 1:13, target 120 lisinopriL (PRINIVIL,ZESTRIL) 5 MG tablet Take 5 mg by mouth LORazepam (ATIVAN) 0.5 MG tablet Take 0.5 mg by mouth 3 (three) times daily as needed for Anxiety Indications: panic attack melatonin 10 mg Tab Take by mouth nightly as needed multivitamin (MULTIVITAMIN) tablet Take 1 tablet by mouth nightly omeprazole (PRILOSEC) 20 MG capsule take 1 capsule by mouth twice a day BEFORE BREAKFAST AND DINNER FOR 90 DAYS ondansetron (ZOFRAN-ODT) 4 MG disintegrating tablet dissolve 1 tablet ON TONGUE every 6 hours ifneeded for nausea promethazine (PHENERGAN) 25 mg/mL injection Inject 12.5 mg into the muscle every 6 (six) hours as needed senna (SENOKOT) 8.6 mg tablet Take 8.6 mg by mouth nightly as needed for Constipation tadalafil (CIALIS) 10 MG tablet Take 5 mg by mouth nightly UNABLE TO FIND 50 mg by Nasal route 3 (three) times daily as needed Ketamine 50 mg/ml, 1-2 sprays into each nostril TID PRN nausea and vomitting ALLERGIES Allergies Allergen Reactions Compazine [Prochlorperazine] Other (See Comments) "Neuroleptic Malignant Syndrome, per SO" Nsaids (Non-Steroidal Anti-Inflammatory Drug) Other (See Comments) Reglan [Metoclopramide Hcl] Other (See Comments) "Tardive Diskinesia per SO" Silver Rash FAMILY HISTORY History reviewed. No pertinent family history. SOCIAL HISTORY Social History Tobacco Use Smoking status: Never Smoker Smokeless tobacco: Never Used Substance Use Topics Alcohol use: Never Frequency: Never REVIEW OF SYSTEMS Review of Systems Constitutional: Negative for activity change, chills and fever. HENT: Negative for congestion. Eyes: Negative for visual disturbance. Respiratory: Negative for cough and shortness of breath. Cardiovascular: Negative for chest pain. Gastrointestinal: + Vomiting. Negative for diarrhea. Endocrine: + Diabetes. Genitourinary: Negative for dysuria and hematuria. Musculoskeletal: Negative for back pain. Skin: Negative for rash. Neurological: Negative for headaches. Psychiatric/Behavioral: Negative. All other systems reviewed and are negative. PHYSICAL EXAM VITAL SIGNS: ED Triage Vitals [05/14/202001] Temp Pulse Resp BP SpO2 SPO2 Pulse Rate Pain Score 37.2 C (99 F) -- 18 (!) 187/104 97 % 104 Five ED Encounter Vitals Date and Time Temp Pulse Resp BP SpO2 SPO2 Pulse Rate ID 05/14/202001 37.2 C (99 F) -- 18 187/104 97 % [address] [facility] 05/14/20 203 -- -- -- -- 100 % 95 05/14/20 2314 -- -- -- 154/81 100 % 84 05/14/20 2344 -- -- -- 174/87 100 % 81 05/15/20 0029 -- -- -- 187/99 97 % 98 05/15/20 0059 -- -- -- -- 97 % 100 [facility] Physical Exam Constitutional: Oriented to person, place, and time and well-developed. Obese. Patient appears uncomfortable but in no acute distress, accompanied by significant other. HENT: Head: Normocephalic and atraumatic. Mouth/Throat: Mildly dry mucous membranes, no oropharyngeal exudate. Eyes: Pupils are equal, round, and reactive to light. Conjunctivae are normal. No scleral icterus. Neck: Normal range of motion. Neck supple. No tracheal deviation present. Cardiovascular: Normal rate, regular rhythm, normal heart sounds and intact distal pulses. Exam reveals no gallop and no friction rub. No murmur heard. Pulmonary/Chest: Effort normal and breath sounds normal. No stridor. No respiratory distress. No wheezes or rales. Abdominal: Soft. No distension or mass. There is no abdominal tenderness. There is no rebound and noguarding. Palpable gastric pacemaker in LUQ. Musculoskeletal: Normal range of motion. General: No deformity or edema. Neurological: Alert and oriented to person, place, and time. No cranial nerve deficit. GCS score is 15. Skin: Warm, mildly diaphoretic. No rash noted. Psychiatric: Affect normal. Nursing note and vitals reviewed. ED COURSE: EKG ECG Results None LABS Labs Reviewed URINALYSIS - Abnormal; Notable for the following components: Result Value UA Color Doreen (*) UA Appearance Slightly Cloudy (*) UA Glucose >1000 (*) UA Ketones 25 (*) UA Blood Small (*) UA Protein >300 (*) UA RBC 3-5 (*) All other components within normal limits CBC WITH AUTO DIFFERENTIAL - Abnormal; Notable for the following components: White Blood Cells 15.3 (*) Hemoglobin 12.5 (*) Hematocrit 36.6 (*) Absolute Neutrophils 12.5 (*) Absolute Monocytes 1.5 (*) All other components within normal limits COMPREHENSIVE METABOLIC PANEL - Abnormal; Notable for the following components: Glucose 177 (*) BUN 40 (*) Creatinine 3.01 (*) Sodium 134 (*) Potassium 3.3 (*) Chloride 88 (*) CO2 38 (*) Total Protein 8.8 (*) Alkaline Phosphatase 126 (*) All other components within normal limits [...] Abnormal; Notable for the following components: Lipase 29 (*) All other components within normal limits BETA-HYDROXYBUTYRIC ACID - Abnormal; Notable for the following components: Beta Hydroxybutyryric Acid 1.44 (*) All other components within normal limits I-STAT VBG+/LACTATE - Abnormal; Notable for the following components: pH Venous 7.648 (*) HCO3, Husam 46.7 (*) Base Excess, Hus[place] 26.0 (*) O2 Sat, Husam 77.0 (*) All other components within normal limits RADIOLOGY No orders to display ED MEDICATIONS: Medications ondansetron (ZOFRAN) injection 8 mg (8 mg Intravenous Given 05/14/202138) sodium chloride 0.9 % BOLUS infusion 2,000 mL (0 L Intravenous Stopped 05/15/20 0033) promethazine (PHENERGAN) injection 25 mg (25 mg Intravenous Given 05/14/202149) diphenhydrAMINE (BENADRYL) injection 50 mg (50 mg Intravenous Given 05/14/202141) sodium chloride 0.9 % infusion 1,000 mL (0 mLs Intravenous Stopped 05/15/20 010) PROCEDURES N/A MEDICAL DECISION MAKING / ASSESSMENT / PLAN : This is a 34 year old male with a history of type 1 diabetics, diabetic gastroparesis, diabetic kidney disease, hypertension, and hyperlipidemia who presents with complaints of acute on chronic nausea and vomiting. This is likely from the patient's diabetic gastroparesis. The extermination inspector solution is likely better glycemic control. My aim today will be to treat the patient's symptoms and evaluate for alternate etiology such as DKA. Initial work-up will consist of a VBG, beta-hydroxybutyric level, CBC, CMP, and lipase. Initial treatment will consist of 50 mg Benadryl, 8 mg Zofran, 25 mg Phenergan, and 2 liter NS. I expect the patient's lab will show a metabolic alkalosis 2/2 frequent emesis as seen on prior visits, some beta-hydroxybutyric elevation, and possibly a small lactate elevation. ED course: As expected, labs notable for metabolic alkalosis with pH 7.64, pCO2 42, HCO3 46.7, lactate 1.5. CBCshows stable leukocytosis with white blood cell count 15.3. Or line anemia which is unchanged from prior with hemoglobin 12.5. Creatinine is elevated to 3.01, however improved from recent values of 3.5-3.6 within the past several weeks. BUN is elevated at 40. Glucose elevated 177. Blood electrolytes are notable for mild hyponatremia, hypokalemia, hypochloremia. Anion gap is normal at 8. LFTs are unremarkable. Beta hydroxybutyrate is elevated 1.44 however lower than on prior visits. Low suspicion forDKA. Low suspicion for systemic bacterial infection or acute surgical abdomen. Patient was treated with total 3 L IV fluids as well as antiemetics. He had significant improvement after these interventions and was able to tolerate oral intake emergency department. Patient and family feel comfortable with discharge and outpatient management. Will continue close glycemic control as well as antiemetics as needed. Will follow-up with PCP and endocrinology. Strict return precautions for any acute worsening other concerns. Discharge Medications: Discharge Medication List as of 05/15/2020 12:11 AM PCP Schedule an appointment as soon as possible for a visit in 2 days [facility] [address] [place] [address] Go to If symptoms worsen FINAL IMPRESSION 1. Gastroparesis 2. Non-intractable vomiting with nausea, unspecified vomiting type 3. ROSALIO (acute kidney injury) 4. Dehydration ED Visit Patient roomed in ED 05/14/201953 Parts of this note have been entered by Abdiel Heath in the role of a scribe. It has been reviewedand edited by Dr. Felix Lugo. Felix Lugo MD 05/15/20212 documented in this encounter Plan of Treatment Not on filedocumented as of this encounter Procedures Procedure Name Priority Date/Time Associated Comments Diagnosis URINALYSIS WITH REFLEX STAT 05/14/2020 11:28 R esults for this TO CULTURE IF PM PDT procedure are in INDICATED the results section. I-STAT VBG+/LACTATE Routine 05/14/2020 8:28 PM Re sults for this PDT procedure are i n the results section. BETA-HYDROXYBUTYRIC STAT 05/14/2020 8:23 PM Re sults for this ACID PDT procedure are i n the results section. CBC WITH AUTO STAT 05/14/2020 8:23 PM Results for this DIFFERENTIAL PDT procedure are i n the results section. LIPASE STAT 05/14/2020 8:23 PM Results f or this PDT procedure are i n the results section. COMPREHENSIVE STAT 05/14/2020 8:23 PM Results for this METABOLIC PANEL PDT procedure ar e in the results section. documented in this encounter Results (ABNORMAL) Urinalysis (05/14/2020 11:28 PM PDT) [facility] Method Time Signature UA Color Doreen (A) Yellow 05/15/2020 [facility] 12:11 AM PDT UA Appearance Slightly Clear 05/15/2020 [facility] Cloudy (A) 12:11 AM PDT UA Glucose >1000 (A) Negative 05/15/2020 [facility] mg/dL 12:11 AM PDT UA Bilirubin Negative Negative 05/15/2020 [facility] 12:11 AM PDT UA Ketones 25 (A) Negative 05/15/2020 [facility] mg/dL 12:11 AM PDT UA Specific 1.005 1.001 - 05/15/2020 [facility] [place] 1.030 12:11 AM PDT UA Blood Small (A) Negative 05/15/2020 [facility] 12:11 AM PDT UA pH 8.0 5.0 - 8.0 05/15/2020 [facility] 12:11 AM PDT UA Protein >300 (A) Negative 05/15/2020 [facility] mg/dL 12:11 AM PDT UA Nitrite Negative Negative 05/15/2020 [facility] 12:11 AM PDT UA Leukocyte Negative Negative 05/15/2020 [facility] Esterase 12:11 AM PDT UA WBC 0-5 0 - 5 /HPF 05/15/2020 [facility] 12:11 AM PDT UA RBC 3-5 (A) 0 - 2 /HPF 05/15/2020 [facility] 12:11 AM PDT UA Mucus 1+ 05/15/2020 [facility] 12:11 AM PDT Specimen Anatomical Collection Method Collection Time Receive d Time (Source) Location / / Volume Laterality Urine specimen 05/14/2020 11:28 0 (specimen) PM PDT 11:57 PM PDT (Urine) Felix Lugo MD URINE ORDERABLES Performing Organization Address City/State/ZIP Code Phon e Number [facility] [address] [place] [address] (ABNORMAL) I-STAT VBG+/LACTATE (05/14/2020 8:28 PM PDT) Analysis Performed At Patho logist Time Signature pH Venous 7.648 (HH) 7.310 - 05/14/2020 [facility] 7.410 8:32 PM PDT pCO2 Venous 42.6 40.0 - 05/14/2020 [facility] 52.0 mmHg 8:32 PM PDT pO2 Venous 34.0 30.0 - 05/14/2020 [facility] 50.0 mmHg 8:32 PM PDT HCO3, Husam 46.7 (H) 22.0 - 05/14/2020 [facility] 27.0 8:32 PM PDT mmol/L Base Excess, 26.0 (H) -3.0 - 3.0 05/14/2020 [facility] [place] mmol/L 8:32 PM PDT O2 Sat, [place] 77.0 (L) 92.0 - 05/14/2020 [facility] 98.0 % 8:32 PM PDT Lactate, 1.50 0.40 - 05/14/2020 [facility] Venous 2.00 8:32 PM PDT mmol/L Specimen Anatomical Collection Method Collection Time Receive d Time (Source) Location / / Volume Laterality Blood specimen 05/14/2020 8:28 PM 020 8:32 (specimen) PDT PM PDT (Blood) Poct Results Unsolicted POCT ORDERABLES - DEVICE Performing Organization Address [facility] Phon e Number [facility] [address] [address] (ABNORMAL) Beta-Hydroxybutyric Acid (05/14/2020 8:23 PM PDT) Patholo gist Method Time Signature Beta 1.44 (HH) <0.30 05/14/2020 [facility] Hydroxybutyryric mmol/L 8:40 PM PDT Acid Specimen Anatomical Collection Method Collection Time Receive d Time (Source) Location / / Volume Laterality Blood specimen Line / Unknown 05/14/2020 8:23 PM 05/14 8:28 (specimen) PDT PM PDT Felix Lugo MD LAB BLOOD ORDERABLES Performing Organization Address [facility] Phon e Number [facility] [address] [place] [address] [phone] (ABNORMAL) Lipase (05/14/2020 8:23 PM PDT) P athologist Signature Lipase 29 (L) 73 - 393 U/L 05/14/2020 [facility] 8:54 PM PDT Specimen Anatomical Collection Method Collection Time Receive d Time (Source) Location / / Volume Laterality Blood specimen Line / Unknown 05/14/2020 8:23 PM 05/14 8:28 (specimen) PDT PM PDT Felix Lugo MD LAB BLOOD ORDERABLES Performing Organization Address [facility]/[place]IP [facility] Ph[place] Number [facility] [address] [place] [address] (ABNORMAL) Comprehensive metabolic panel (05/14/2020 8:23 PM PDT) P athologist Signature Glucose 177 (H) 65 - 99 05/14/2020 [facility] mg/dL 8:54 PM PDT BUN 40 (H) 7 - 18 05/14/2020 [facility] MG/DL 8:54 PM PDT Creatinine 3.01 (H) 0.70 - 1.30 05/14/2020 [facility] mg/dL 8:54 PM PDT eGFR 24 m/m/1.73 05/14/2020 [facility] 8:54 PM PDT Comment: GFR < 60: Chronic kidney disease if foun d over a 3 month period. Patient race not entered. If patient i s multiply the calculated GFR by 1.21 Sodium 134 (L) 136 - 145 mmol/L 05/14/2020 8:54 PM PDT [facility] Potassium 3.3 (L) 3.5 - 5.1 mmol/L 05/14/2020 8:54 PM PDT [facility] Chloride 88 (L) 98 - 107 mmol/L 05/14/2020 8:54 PM PDT [facility] CO2 38 (H) 21 - 32 mmol/L 05/14/2020 8:54 PM PDT [facility] Anion Gap 8 5 - 16 mmol/L 05/14/2020 8:54 PM PDT [facility] Calcium 9.7 8.5 - 10.1 mg/dL 05/14/2020 8:54 PM PDT [facility] Total Protein 8.8 (H) 6.4 - 8.2 G/DL 05/14/2020 8:54 PM PD T [facility] Albumin 3.8 3.4 - 5.0 G/DL 05/14/2020 8:54 PM PDT [facility] Bilirubin Total 0.5 0.2 - 1.0 mg/dL 05/14/2020 8:54 PM PDT [facility] Alkaline Phosphatase 126 (H) 45 - 117 U/L 05/14/2020 8:54 PM PDT [facility] AST (SGOT) 20 15 - 37 U/L 05/14/2020 8:54 PM PDT [facility] ALT (SGPT) 24 16 - 61 U/L 05/14/2020 8:54 PM PDT [facility] Specimen Anatomical Collection Method Collection Time Receive d Time (Source) Location / / Volume Laterality Blood specimen Line / Unknown 05/14/2020 8:23 PM 05/14 8:28 (specimen) PDT PM PDT Narrative [facility] - 05/14/2020 8:54 PM PDT Glucose Reference Range : ADA 2012 Diagnostic Categories for nonpr egnant adults: Impaired fasting glucose 100-125 mg/dL A fasting glucose result of 126 mg/dL or greater indicates diabetes if the abnormality is confirmed on a subsequent day. A random glucose of 200 mg/dL or greater in a patient with symptoms of hyperglycemia or hyperglycemic crisis, indicates diabetes. Felix Lugo MD LAB BLOOD ORDERABLES Performing Organization Address City/State/ZIP Code Phon e Number [facility] [address] [place] [address] [phone] (ABNORMAL) CBC With Auto Differential (05/14/2020 8:23 PM PDT) [facility] Method Time Signature White Blood 15.3 (H) 3.8 - 11.0 05/14/2020 [facility] Cells k/ul 8:36 PM PDT RBC 4.22 4.20 - 05/14/2020 [facility] 5.70 M/uL 8:36 PM PDT Hemoglobin 12.5 (L) 13.2 - 05/14/2020 [facility] 17.0 g/dL 8:36 PM PDT Hematocrit 36.6 (L) 39.0 - 05/14/2020 [facility] 50.0 % 8:36 PM PDT MCV 86.7 80.0 - 05/14/2020 [facility] 100.0 fL 8:36 PM PDT MCH 29.6 27.0 - 05/14/2020 [facility] 34.0 pg 8:36 PM PDT MCHC 34.1 32.0 - 05/14/2020 [facility] 35.5 g/dL 8:36 PM PDT RDW-CV 13.5 11.0 - 05/14/2020 [facility] 15.5 % 8:36 PM PDT Platelet Count 358 150 - 400 05/14/2020 [facility] K/uL 8:36 PM PDT MPV 8.2 7.0 - 11.3 05/14/2020 [facility] fL 8:36 PM PDT nRBC(auto)% 0.1 0.0 - 2.0 05/14/2020 [facility] /100 WBC 8:36 PM PDT Neutrophils % 81.3 % 05/14/2020 [facility] (Auto) 8:36 PM PDT Lymphocytes % 8.2 % 05/14/2020 [facility] 8:36 PM PDT Monocytes % 9.9 % 05/14/2020 [facility] (Auto) 8:36 PM PDT Eosinophils % 0.1 % 05/14/2020 [facility] 8:36 PM PDT Basophils % 0.5 % 05/14/2020 [facility] 8:36 PM PDT Absolute 12.5 (H) 1.9 - 7.4 05/14/2020 [facility] Neutrophils k/uL 8:36 PM PDT Absolute 1.3 1.0 - 3.9 05/14/2020 [facility] Lymphocytes k/uL 8:36 PM PDT Absolute 1.5 (H) 0.0 - 0.8 05/14/2020 [facility] Monocytes k/uL 8:36 PM PDT Absolute 0.0 0.0 - 0.5 05/14/2020 [facility] Eosinophils k/uL 8:36 PM PDT Absolute 0.1 0.0 - 0.1 05/14/2020 [facility] Basophils k/uL 8:36 PM PDT Specimen Anatomical Collection Method Collection Time Receive d Time (Source) Location / / Volume Laterality Blood specimen Line / Unknown 05/14/2020 8:23 PM 05/14 8:28 (specimen) PDT PM PDT Felix Lugo MD LAB BLOOD ORDERABLES Performing Organization Address City/State/ZIP Code Phon e Number [facility] [address] [place] [address] documented in this encounter Visit Diagnoses Diagnosis Gastroparesis - Primary Non-intractable vomiting with nausea, un specified vomiting type ROSALIO (acute kidney injury) (HCC) Dehydration documented in this encounter Administered Medications Inactive Administered Medications - up to 3 most recent administrations Medication Order MAR Action Action Date Dose Rate Site diphenhydrAMINE (BENADRYL) Given 05/14/2020 9:42 PM PDT 50 mg injection 50 mg 50 mg, Intravenous, Once On Tue05/14/20 at 2019, For 1 dose ondansetron (ZOFRAN) injection 8 mg Given 05/14/2020 9:39 PM PDT 8 mg 8 mg, Intravenous, Once On Tue05/14/20 at 2005, For 1 dose, If ordered IV route: may give undiluted by slow IV push over 1/2 to 2 minutes promethazine (PHENERGAN) injection 25 mg Given 05/14/2020 9:50 PM PDT 25 mg 25 mg, Intravenous, Once On Tue05/14/20 at 2019, For 1 dose sodium chloride 0.9 % BOLUS New Bag 05/14/2020 9:39 PM PDT 1,000 m Ls 2000 mL/hr infusion 2,000 mL 2,000 mL (2 L), Intravenous, Administer over 1 Hours, Once, On Tue05/14/20 at 2016, For 1 dose sodium chloride 0.9 % infusion New Bag 05/14/2020 11:45 PM PDT 1,000 mLs 1000 mL/hr 1,000 mL at 1,000 mL/hr, Intravenous, Once, On Tue05/14/20 at 2320, For 1 dose documented in this encounter Active and Recently Administered Medications Times are shown in PDT. Scheduled Medication Order 05/13/2020 05/14/2020 05/15/2020 diphenhydrAMINE (BENADRYL) injection 50 mg (COMPLETED) 2141 (Given - Provider: Jocy Luciano RN) 50 mg, Intravenous, Once Tue05/14/20 at 2019, For 1 dose ondansetron (ZOFRAN) injection 8 mg (COMPLETED) 2138 (Given - Provider: Jocy Luciano RN) 8 mg, Intravenous, Once Tue05/14/20 at 2005, For 1 dose, If ordered IV route: may give undiluted by slow IV push over 1/2 to 2 minutes promethazine (PHENERGAN) injection 25 mg (COMPLETED) 2149 (Given - Provider: Jocy Luciano RN) 25 mg, Intravenous, Once Tue05/14/20 at 2019, For 1 dose sodium chloride 0.9 % BOLUS infusion 2,000 mL (COMPLETED) 2138 (New Bag - Provider: Jocy Luciano RN) 0033 (Stopped - Provider: Vanessa gambino RN) 2,000 mL (2 L), Intravenous, Administer over 1 Hours, Once, On Tue05/14/20 at 2016, For 1 dose sodium chloride 0.9 % infusion 1,000 mL (COMPLETED) 2344 (New Bag - Provider: Khari Franks RN) 0103 (Stopped - Provider: Vanessa gambino RN) at 1,000 mL/hr, Intravenous, Once, 05/14/20 at 2320, For 1 d ose documented in this encounter
--- OUTSIDE RECORDS SUMMARY | 2022-07-24 16:41 | External Medical Summary | Encounter Summary ---
:1985 Author Organization [facility] Address [address] [place] [address] Care Team Providers Name Role Phone Unavailable Primary Care Provider Unavailable Reason for Visit Reason Comments Emesis Encounter Details Date Type Department Care Team Description 04/28/2020 Emergency [facility] EMERGENCY Nithin Walker, Intractable vomiting [address] MD with nausea, [place] [address] unspecified vomiting [phone] [place], [place] [address] type (Primary Dx) [phone] (Wo rk) Social History Tobacco Use Types [...] Sign Reading Time Taken Comments Blood Pressure 147/84 04/28/2020 5:06 PM PDT Pulse 93 04/28/2020 5:06 PM PDT Temperature 37.1 C (98.7 F) 04/28/2020 1:06 PM PDT Respiratory Rate 18 04/28/2020 4:06 PM PDT Oxygen Saturation 100% 04/28/2020 5:06 PM PDT Inhaled Oxygen Concentration - - Weight - - Height - - Body Mass Index - - documented in this encounter Discharge Instructions Discharge InstructionsNithin Walker MD - 04/28/2020 5:25 PM PDT Images from the original note were not included. Vomiting (Adult) Vomiting is a common symptom [...] soap and waterare not available, use alcohol-based occupational therapy program director to keep from spreading the infection to [...] Yellow color of the eyes or skin Medine last reviewed this educational content on 09/15/201719991674-2690 [employer]. [address] [place] [address]. All rights reserved. This information is not [...] documented as of this encounter ED Notes Khari Franks RN - 04/28/2020 5:31 PM PDT Pt sitting upright in [facility] reports, "feeling much better." Pt aware of discharge plan. Khari Franks RN - 04/28/2020 4:29 PM PDT Pt given ice chips MD Walker aware. Khari Franks RN - 04/28/2020 4:20 PM PDT Pt resting on L side w/ at bedside. VS stable fluids infusing. Will continue to monitor. Augie Salcido RN - 04/28/2020 2:54 PM PDT pts spouse states the pt is feeling "woozie" and nauseated. As RN is standing in the room, pt asked for water from his . Wendi Izquierdo RN - 04/28/2020 2:19 PM PDT Pt resting in bed, reports nausea has been getting 'a little bit better'. Will continue to monitor. Wendi Izquierdo RN - 04/28/2020 1:59 PM PDT Critical lab results received at 1359 from [facility] Lab result: Betahydroxy >2.0 Results were read back and confirmed. Dr. Walker was notified of these results. Orders were not received and verified. Wendi Izquierdo RN - 04/28/2020 1:52 PM PDT VBG and Lactate resulted. Did not cross over to pt's chart. aware of results, will scan results into chart. Wendi Izquierdo RN - 04/28/2020 1:40 PM PDT Warm blankets applied. Pt resting in bed with spouse at bedside Wendi Izquierdo RN - 04/28/2020 1:18 PM PDT MD at bedside Nithin Walker MD - 04/28/2020 1:17 PM PDT CHIEF COMPLAINT: Chief Complaint Patient presents with Emesis Notes: This is a 34 y.o. male who has a history of diabetes along with hypertension, gastroparesis and renal insufficiency. He was last seen in the ED here just about 4 weeks ago for gastroparesis nausea vomiting. He was last admitted here in July of this year for diabetes [id number] along with gastroparesis. He presents at this time with intractable nausea and vomiting over the last 2 days. He has had difficulty keeping anything down. He tried to manage this at home with, nation of Zofran and Phenergan andBenadryl but has been unsuccessful. He feels like he's coming dehydrated. He is had no abdominal pain. No fevers or chills. No dysuria urgency or frequency. He has been checking blood sugars and they have been running around 200. Past Medical History: Diagnosis Date Anxiety Diabetes mellitus Gastroparesis Hypertension Neuropathy Renal disorder Type 1 diabetes mellitus with autonomic neuropathy History reviewed. No pertinent surgical history. Previous Medications ATORVASTATIN (LIPITOR) 40 MG TABLET [...] nostril TID PRN nausea and vomitting ALLERGIES : Compazine [prochlorperazine] and Reglan [metoclopramide hcl] SOCIAL : He is a nonsmoker. Accompanied by family. Social History Tobacco Use Smoking status: Never Smoker Smokeless tobacco: Never Used Substance Use Topics Alcohol use: Never Frequency: Never REVIEW OF SYSTEMS: CONSTITUTIONAL : No fevers or chills HEAD: No headache HEENT: No coryza CARDIOVASCULAR : No Chest Pain. RESPIRATORY : No shortness of breath GI : No abdominal pain. Positive nausea and vomiting. No GI bleeding. : No dysuria, frequency MUSCULOSKELETAL : No edema SKIN : No rash. PSYCH : No sleep changes. NEUROLOGIC : No weakness or numbness in extremities. PHYSICAL EXAM: Vitals: 04/28/20 1450 04/28/20 1606 04/28/20 1621 10/12/20 1706 BP: 145/76 132/71 152/71 147/84 BP Location: Right arm Right arm Right arm Pulse: 103 87 89 93 Resp: 18 Temp: TempSrc: SpO2: 100% 100% 99% 100% GENERAL : He is awake alert and appropriate. HEAD : Normocephalic, Atraumatic EYES : Normal to inspection ENT : mucous membranes moderately dry NECK : normal inspection CARD : regular rate and rhythm without murmurs RESP : clear and symmetric ABD : Soft flat and nontender. BACK : Non-tender. No CVA tenderness. MUSC : Normal ROM, non-tender, no pedal edema. SKIN : Color normal, no rash, warm, dry. NEURO : Awake & alert, lucid MEDICAL DECISION MAKING : This patient presents with vomiting likely due to diabetic gastroparesis. However he is rather heavymarijuana smoker as well and this may play a role. Abdominal exam is benign. No evidence of acute abdominal process at this time. I do not believe he needs imaging. There is the possibility of diabetes [id number] in DKA as well. Although he has been checking his blood sugars at around 100. We'll proceed with treatment of symptoms with IV fluids along with Zofran and Phenergan as request. He has received IV Phenergan before and will give it with copious IV fluids. We'll also treat with Benadryl as well at his request. We'll check CBC and metabolic parameters in liver function studies. We'll follow along closely. Recent Results (from the past 24 hour(s)) CBC No Diff Collection Time: 04/28/20 1:16 PM Result Value Ref Range White Blood Cells 15.4 (H) 3.8 - 11.0 k/ul RBC 5.18 4.20 - 5.70 M/uL Hemoglobin 15.3 13.2 - 17.0 g/dL Hematocrit 44.9 39.0 - 50.0 % MCV 86.8 80.0 - 100.0 fL MCH 29.5 27.0 - 34.0 pg MCHC 34.0 32.0 - 35.5 g/dL RDW 13.7 11.0 - 15.5 % Platelet Count 387 150 - 400 K/uL MPV 8.7 7.0 - 11.3 fL Comprehensive metabolic panel Collection Time: 04/28/20 1:16 PM Result Value Ref Range Glucose 238 (H) 65 - 99 mg/dL BUN 46 (H) 7 - 18 MG/DL Creatinine 3.68 (H) 0.70 - 1.30 mg/dL eGFR 19 m/m/1.73 Sodium 129 (L) 136 - 145 mmol/L Potassium 3.1 (L) 3.5 - 5.1 mmol/L Chloride 81 (L) 98 - 107 mmol/L CO2 39 (H) 21 - 32 mmol/L Anion Gap 9 5 - 16 mmol/L Calcium 9.4 8.5 - 10.1 mg/dL Total Protein 9.1 (H) 6.4 - 8.2 G/DL Albumin 4.1 3.4 - 5.0 G/DL Bilirubin Total 0.6 0.2 - 1.0 mg/dL Alkaline Phosphatase 131 (H) 45 - 117 U/L AST (SGOT) 35 15 - 37 U/L ALT (SGPT) 33 16 - 61 U/L Lipase Collection Time: 04/28/20 1:16 PM Result Value Ref Range Lipase 28 (L) 73 - 393 U/L Beta-Hydroxybutyric Acid Collection Time: 04/28/20 1:16 PM Result Value Ref Range Beta Hydroxybutyryric Acid >2.00 (HH) <0.30 mmol/L Medications sodium chloride 0.9 % BOLUS infusion 2,000 mL (0 L Intravenous Stopped 04/28/20 1554) ondansetron (ZOFRAN) injection 8 mg (8 mg Intravenous Given 04/28/20 1322) promethazine (PHENERGAN) injection 12.5 mg (12.5 mg Intravenous Given 04/28/20 1337) diphenhydrAMINE (BENADRYL) injection 50 mg (50 mg Intravenous Given 04/28/20 1338) promethazine (PHENERGAN) injection 12.5 mg (12.5 mg Intravenous Given 04/28/20 1600) sodium chloride 0.9 % infusion 1,000 mL (1,000 mLs Intravenous New Bag 04/28/20 1600) EMERGENCY DEPARTMENT COURSE: Laboratory evaluation shows a white blood count of 15.4. Patient is has leukocytosis. His blood counts ranged between 13 and 18. Hematocrit is 45. Glucose is 238 with a BUN of 46 and creatinine at 3.68. These are near his baseline. Sodium depressed at 129 with a potassium at 3.1. Bicarbonate is 39 with an anion gap 9. Lipase 28. Beta hydroxybutyrate is greater than 2. Observation note: Patient is observed in the department at this time for 5 hours. He remains hemodynamically stable. Blood pressure 150/70 with a pulse of 90. He is afebrile. Patient is given intravenous Zofran and Benadryl in addition to a 0.5 mg aliquots of Phenergan and flushed with copious amounts of saline. He was observed in the department for 5 hours. He did have marked improvement in symptoms. Taking oral fluids. Patient uses intramuscular Phenergan at home. He administers 12.5 mg at a time. He is given 6 vials of 25 mg/mL. He is to use 12.5 mg intramuscularly in the shoulder or thigh. He has done this for years. He is to aspirate before administering the medication. He is been a diabetic for an excess of 20 years and is very used to giving himself shots. This patient presents with gastroparesis likely diabetic. Possible some component of marijuana use. He will be returned here acutely to this ED for vomiting fever or increasing pain nor different or increasing symptoms. No indication at this time of DKA. He understands the importance of close follow-up and importance returning here acutely to this ED for increasing symptoms as above. DIAGNOSIS: 1. Intractable vomiting with nausea, unspecified vomiting type New Prescriptions No medications on file DISPOSITION: The patient is discharged in stable condition. ED Visit Patient roomed in ED 04/28/20 1301 Ami Walker MD 5:38 PM, 04/28/2020 Nithin Walker MD 04/28/20 1995 Wendi Izquierdo RN - 04/28/2020 1:04 PM PDT Pt presents with nausea and vomiting x2.5 days. Denies abd pain, no GERMAIN. Hx of Diabetes mellitus and gastroparesis. Most recent blood sugar 243. Tried PO zofran at home documented in this encounter Miscellaneous Notes MALLORY-Visit History - Mallory Interface Model - 04/28/2020 12:58 PM PDT Mallory has no Care Guidelines for this patient. Prescription Review PDMP Report (previous six months). Fill Date Drug Description Qty. Prescriber SELAM MED --------- ---- -- --- 2020-02-01 OXYCODONE HCL 5 MG TABLET 12 KLEBER KIM MD 2 30.0 12 Month Prescription Summary -Number of CS Rx:1 -Number of CS-II Rx:1 -Total dispensed quantity:13 -Unique Prescribers:2 -Unique Pharmacies:2 -Opioid Rx Count:1 -Long Acting Opioid Rx Count:0 -Benzo Rx Count:0 ED/UCC VISIT TRACKING (3 MO.) 04/28/2020 12:57 Sid LOREDO TYPE: Emergency DIAGNOSES: - EMESIS; DEHYDRATION - EMESIS 04/04/2020 08:37 Sid LOREDO TYPE: Emergency DIAGNOSES: - Nausea with vomiting, unspecified - Dehydration - Emesis - EMESIS; DEHYDRATION - Dehydration INPATIENT VISIT TRACKING (1 MO.) No inpatient visits to display in this time frame E.D. VISIT COUNT (12 MO.) 2 [facility]. 0 Medicaid [place] Dx 2 [facility] 0 Medicaid NE Dx 3 [facility] 0 Medicaid NE Dx TOTAL 7 TOTAL MEDICAID NE DX 0 NOTE: Visits indicate total known visits. Medicaid NE Dx are the number of primary diagnoses on the [facility] non-emergent dx list. CARE PROVIDERS KWAME FLORES [facility] Current PHONE: [phone] CLAUDIA SIEGEL L, Nurse Practitioner: Psychiatric/Mental Health Current WENDY L PHONE: Unknown [facility] Primary Care Current PHONE: Unknown [facility] Current PHONE: [phone] [facility] ONLY Primary Care Current PHONE: [phone] [id number] [email or web address] Security Events No recent Security Events currently on file documented in this encounter Plan of Treatment Not on filedocumented as of this encounter Procedures Procedure Name Priority Date/Time Associated Comments Diagnosis I-STAT VBG+/LACTATE Routine 04/28/2020 1:19 PM Re sults for this PDT procedure are i n the results section. BETA-HYDROXYBUTYRIC STAT 04/28/2020 1:16 PM Re sults for this ACID PDT procedure are i n the results section. CBC NO DIFF STAT 04/28/2020 1:16 PM Results f or this PDT procedure are i n the results section. LIPASE STAT 04/28/2020 1:16 PM Results f or this PDT procedure are i n the results section. COMPREHENSIVE STAT 04/28/2020 1:16 PM Results for this METABOLIC PANEL PDT procedure ar e in the results section. documented in this encounter Results (ABNORMAL) I-STAT VBG+/LACTATE (04/28/2020 1:19 PM PDT) Analysis Performed At Patho logist Time Signature pH Venous 7.652 (HH) 7.310 - 04/29/2020 [facility] 7.410 8:38 AM PDT pCO2 Venous 44.3 40.0 - 04/29/2020 [facility] 52.0 mmHg 8:38 AM PDT pO2 Venous 27.0 (L) 30.0 - 04/29/2020 [facility] 50.0 mmHg 8:38 AM PDT HCO3, Husam 49.1 (H) 22.0 - 04/29/2020 [facility] 27.0 8:38 AM PDT mmol/L Base Excess, 28.0 (H) -3.0 - 3.0 04/29/2020 [facility] Husam mmol/L 8:38 AM PDT O2 Sat, Husam 64.0 (L) 92.0 - 04/29/2020 [facility] 98.0 % 8:38 AM PDT Lactate, 2.21 (H) 0.40 - 04/29/2020 [facility] Venous 2.00 8:38 AM PDT mmol/L Specimen Anatomical Collection Method Collection Time Receive d Time (Source) Location / / Volume Laterality Blood specimen 04/28/2020 1:19 PM 020 8:38 (specimen) PDT AM PDT (Blood) Poct Results Unsolicted POCT ORDERABLES - DEVICE Performing Organization Address [facility] Phon e Number [facility] [address] [place] [address] [phone] (ABNORMAL) Beta-Hydroxybutyric Acid (04/28/2020 1:16 PM PDT) [facility] Time Signature Beta >2.00 <0.30 04/28/2020 [facility] Hydroxybutyryric (HH) mmol/L 2:01 PM PDT Acid Specimen Anatomical Collection Method Collection Time Receive d Time (Source) Location / / Volume Laterality Blood specimen Line / Unknown 04/28/2020 1:16 PM 04/28 1:20 (specimen) PDT PM PDT Nithin Walker MD LAB BLOOD ORDERABLES Performing Organization Address [facility] Phon e Number [facility] [address] [place] [address] (ABNORMAL) Lipase (04/28/2020 1:16 PM PDT) P athologist Signature Lipase 28 (L) 73 - 393 U/L 04/28/2020 [facility] 1:42 PM PDT Specimen Anatomical Collection Method Collection Time Receive d Time (Source) Location / / Volume Laterality Blood specimen Line / Unknown 04/28/2020 1:16 PM 04/28 1:20 (specimen) PDT PM PDT Nithin Walker MD LAB BLOOD ORDERABLES Performing Organization Address [facility] Phon e Number [facility] [address] [place] [address] [phone] (ABNORMAL) Comprehensive metabolic panel (04/28/2020 1:16 PM PDT) P athologist Signature Glucose 238 (H) 65 - 99 04/28/2020 [facility] mg/dL 1:42 PM PDT BUN 46 (H) 7 - 18 04/28/2020 [facility] MG/DL 1:42 PM PDT Creatinine 3.68 (H) 0.70 - 1.30 04/28/2020 [facility] mg/dL 1:42 PM PDT eGFR 19 m/m/1.73 04/28/2020 [facility] 1:42 PM PDT Comment: GFR < 60: Chronic kidney disease if foun d over a 3 month period. Patient race not entered. If patient i s multiply the calculated GFR by 1.21 Sodium 129 (L) 136 - 145 mmol/L 04/28/2020 1:42 PM PDT [facility] Potassium 3.1 (L) 3.5 - 5.1 mmol/L 04/28/2020 1:42 PM PDT [facility] Chloride 81 (L) 98 - 107 mmol/L 04/28/2020 1:42 PM PDT [facility] CO2 39 (H) 21 - 32 mmol/L 04/28/2020 1:42 PM PDT [facility] Anion Gap 9 5 - 16 mmol/L 04/28/2020 1:42 PM PDT [facility] Calcium 9.4 8.5 - 10.1 mg/dL 04/28/2020 1:42 PM PDT [facility] Total Protein 9.1 (H) 6.4 - 8.2 G/DL 04/28/2020 1:42 PM PD T [facility] Albumin 4.1 3.4 - 5.0 G/DL 04/28/2020 1:42 PM PDT [facility] Bilirubin Total 0.6 0.2 - 1.0 mg/dL 04/28/2020 1:42 PM PDT [facility] Alkaline Phosphatase 131 (H) 45 - 117 U/L 04/28/2020 1:42 PM PDT [facility] AST (SGOT) 35 15 - 37 U/L 04/28/2020 1:42 PM PDT [facility] ALT (SGPT) 33 16 - 61 U/L 04/28/2020 1:42 PM PDT [facility] Specimen Anatomical Collection Method Collection Time Receive d Time (Source) Location / / Volume Laterality Blood specimen Line / Unknown 04/28/2020 1:16 PM 04/28 1:20 (specimen) PDT PM PDT Narrative [facility] - 04/28/2020 1:42 PM PDT Glucose Reference Range : ADA 2012 Diagnostic Categories for nonpr egnant adults: Impaired fasting glucose 100-125 mg/dL A fasting glucose result of 126 mg/dL or greater indicates diabetes if the abnormality is confirmed on a subsequent day. A random glucose of 200 mg/dL or greater in a patient with symptoms of hyperglycemia or hyperglycemic crisis, indicates diabetes. Nithin Walker MD LAB BLOOD ORDERABLES Performing Organization Address [facility] Phon e Number [facility] [address] [place] [address] [phone] (ABNORMAL) CBC No Diff (04/28/2020 1:16 PM PDT) Analysis Performed At Patho logist Time Signature White Blood 15.4 (H) 3.8 - 11.0 04/28/2020 [facility] Cells k/ul 1:23 PM PDT RBC 5.18 4.20 - 04/28/2020 [facility] 5.70 M/uL 1:23 PM PDT Hemoglobin 15.3 13.2 - 04/28/2020 [facility] 17.0 g/dL 1:23 PM PDT Hematocrit 44.9 39.0 - 04/28/2020 [facility] 50.0 % 1:23 PM PDT MCV 86.8 80.0 - 04/28/2020 [facility] 100.0 fL 1:23 PM PDT MCH 29.5 27.0 - 04/28/2020 [facility] 34.0 pg 1:23 PM PDT MCHC 34.0 32.0 - 04/28/2020 [facility] 35.5 g/dL 1:23 PM PDT RDW-CV 13.7 11.0 - 04/28/2020 [facility] 15.5 % 1:23 PM PDT Platelet Count 387 150 - 400 04/28/2020 [facility] K/uL 1:23 PM PDT MPV 8.7 7.0 - 11.3 04/28/2020 [facility] fL 1:23 PM PDT Specimen Anatomical Collection Method Collection Time Receive d Time (Source) Location / / Volume Laterality Blood specimen Line / Unknown 04/28/2020 1:16 PM 04/28 1:20 (specimen) PDT PM PDT Nithin Walker MD LAB BLOOD ORDERABLES Performing Organization Address [facility] Phon e Number [facility] [address] [place] [address] [phone] documented in this encounter Visit Diagnoses Diagnosis Intractable vomiting with nausea, unspec ified vomiting type - Primary documented in this encounter Administered Medications Inactive Administered Medications - up to 3 most recent administrations Medication Order MAR Action Action Date Dose Rate Site diphenhydrAMINE (BENADRYL) Given 04/28/2020 1:38 PM PDT 50 mg injection 50 mg 50 mg, Intravenous, Once On Tue04/28/20 at 1324, For 1 dose ondansetron (ZOFRAN) injection 8 mg Given 04/28/2020 1:22 PM PDT 8 mg 8 mg, Intravenous, Once On Tue04/28/20 at 1312, For 1 dose, May give undiluted by slow IV push over 1/2 to 2 minutes promethazine (PHENERGAN) injection 12.5 mg Given 04/28/2020 1:37 PM PDT 12.5 mg 12.5 mg, Intravenous, Once On Tue04/28/20 at 1324, For 1 dose promethazine (PHENERGAN) injection 12.5 mg Given 04/28/2020 4:00 PM PDT 12.5 mg 12.5 mg, Intravenous, Once On Tue04/28/20 at 1555, For 1 dose sodium chloride 0.9 % BOLUS New Bag 04/28/2020 1:26 PM PDT 2,000 m Ls 2000 mL/hr infusion 2,000 mL 2,000 mL (2 L), Intravenous, Administer over 1 Hours, Once, On Tue04/28/20 at 1312, For 1 dose sodium chloride 0.9 % infusion New Bag 04/28/2020 4:00 PM PDT 1,000 mLs 1000 mL/hr 1,000 mL at 1,000 mL/hr, Intravenous, Once, On Tue04/28/20 at 1555, For 1 dose, 1000mL documented in this encounter Active and Recently Administered Medications Times are shown in PDT. Scheduled Medication Order 04/26/2020 04/27/2020 04/28/2020 diphenhydrAMINE (BENADRYL) injection 50 mg (COMPLETED) 1338 (Given - Provider: Wendi Izquierdo RN) 50 mg, Intravenous, Once Tue04/28/20 at 1324, For 1 dose ondansetron (ZOFRAN) injection 8 mg (COMPLETED) 1322 (Given - Provider: Wendi Izquierdo RN) 8 mg, Intravenous, Once Tue04/28/20 at 1312, For 1 dose, May give undiluted by slow IV push over 1/2 to 2 minutes promethazine (PHENERGAN) injection 12.5 mg (COMPLETED) 1337 (Given - Provider: Wendi Izquierdo RN) 12.5 mg, Intravenous, Once Tue04/28/20 at 1324, For 1 dose promethazine (PHENERGAN) injection 12.5 mg (COMPLETED) 1600 (Given - Provider: Duyen Lara RN) 12.5 mg, Intravenous, Once Tue04/28/20 at 1555, For 1 dose sodium chloride 0.9 % BOLUS infusion 2,000 mL (COMPLETED) 1326 (New Bag - Provider: Wendi Izquierdo RN)1554 (Stopped - Provider: Duyen Lara RN) 2,000 mL (2 L), Intravenous, Administer over 1 Hours, Once, Tue04/28/20 at 1312, For 1 dose sodium chloride 0.9 % infusion 1,000 mL (COMPLETED) 1600 (New Bag - Provider: Duyen Lara RN)1756 (Stopped - Provider: Duyen Lara RN) at 1,000 mL/hr, Intravenous, Once, On Tue04/28/20 at 1555, For 1 dose, 1000mL documented in this encounter
--- OUTSIDE RECORDS SUMMARY | 2022-07-24 16:41 | External Medical Summary | Encounter Summary ---
:1985 Author Organization [facility] nter Address [address] [place] [address] Care Team Providers Name Role Phone Unavailable Primary Care Provider Unavailable Reason for Visit Reason Comments Emesis Dehydration Encounter Details Date Type Department Care Team Description 04/04/2020 Emergency [facility] Joe Sandoval, Non-intractable vomiting wit h nausea, unspecified vomiting type (Primary Dx); [address] [place] [address] [phone] [place] [address] (Wo rk) Social History [...] Reading Time Taken Comments Blood Pressure 171/101 04/04/2020 8:42 AM PDT Pulse - - Temperature - - Respiratory Rate 16 04/04/2020 8:42 AM PDT Oxygen Saturation 97% 04/04/2020 8:42 AM PDT Inhaled Oxygen Concentration - - Weight 81.6 kg (180 lb) 04/04/2020 8:42 AM PDT Height - - Body Mass Index 28.19 08/11/2019 1:40 AM PST documented in this encounter Discharge Instructions Discharge InstructionsJoe Sandoval MD - 04/04/2020 1:24 PM PDT Images from the original note were not included. Thank you for choosing [facility] for your care today. Your Emergency Department physician today was: Dr. Jaime MD A few Discharge Reminders: Return to the Emergency Department immediately if you have worsening symptoms, pain, difficulty breathing, fever, confusion, or any other problems. Follow up with your primary care provider, or as referred, if not improved within 48 hrs. Take medication as advised. Dehydration The human body is comprised largely [...] for diarrhea, vomiting, or a high fever. [employer] last reviewed this educational content on 11/16/201919992085-0698 [employer]. [address] [place] [id number]. All rights reserved. This information is not intended as a substitute for professional medical care. Always follow your healthcare professional's instructions. Nonspecific Vomiting and Diarrhea (Adult) Vomiting and diarrhea can have many causes, including: Helping your body get rid of harmful substances Gastroenteritis caused by viruses, parasites,bacteria, or toxins. Allergy darwin side effect ofa food or medicine Severe stress or worry (anxiety) Other illnesses It is often hard to pinpoint an exact cause, even with testing.Vomiting and diarrhea often go awaywithin a day or two without problems. If they continue, though, they can lead to too much loss of fluid (dehydration). This can be serious if not treated. Home care Medicines You may use acetaminophen or NSAID medicines like ibuprofen or naproxen to control fever, unless another medicine was prescribed. If you have chronic liver or kidney disease, talk with your healthcare provider before using these medicines. Also talk with your provider if you've had a stomach ulcer o rgastrointestinal bleeding. Don't give aspirin to anyone under 18 years of age who is ill with a fever because it may cause severe disease or . Don't use NSAID medicines if you are already taking one for another condition (like arthritis) or are on aspirin (such as for heart disease or after a stroke) Jnsy-jyg-uhkqpqj medicines for diarrhea, nausea, and vomiting are generally OK unless you have bleeding, fever, or severe abdominal pain. General care If symptoms are severe, rest at home for the next 24 hours, or until you are feeling better. Washing your hands with soap and water, or using alcohol-based hand sanitizeris the best way tostop the spread of infection. Wash your hands after touching anyone who is sick. Wash your hands after using the toilet and before meals. Clean the toilet after each use. Dry your hands with a single use towel. Caffeine, tobacco, and alcohol can make the diarrhea, cramping, and pain worse. Remember, caffeine not only isin coffee, but also isin chocolate, some energy drinks, and teas. Diet Water and clear liquids are important so you don't get dehydrated. Drink a small amount at a time. Don't guzzle down the drinks.That may increase your nausea, make cramping worse, andcause the drinksto come back up. Sports drinks may also help if you are healthy and not too dehydrated. They have too much sugar and not enough electrolytes and can sometimes make things worse. Also, don't drink beverages that are too acidic, like orange juice and grape juice. If you are very dehydrated, commercially available products called oral rehydration solutions arebest. Food Don't force yourself to eat, especially if you have cramps, diarrhea, or vomiting.Eat just a little at a time, and then wait a few minutes before you try to eat more. Don't eat fatty, greasy, spicy, or fried foods. Don't eat dairy products if you have diarrhea. They can make it worse. During the first24 hours(the first full day),follow the diet below: Beverages: Oral rehydration solutions, sports drinks, soft drinks without caffeine, mineral water, and decaffeinated tea and coffee Soups: Clear broth, consomm, and bouillon Desserts: Plain gelatin, popsicles, and fruit juice bars During the next 24 hours(the second day),you may add the following to the aboveif you are better. If not, continue what you did the first day: Hot cereal, plain toast, bread, rolls, crackers Plain noodles, rice, mashed potatoes, chicken noodle or rice soup Unsweetened canned fruit (avoid pineapple), bananas Limit fat intake to less than 15 grams per day by avoiding margarine, butter, oils, mayonnaise, sauces, gravies, fried foods, peanut butter, meat, poultry, and fish. Limit fiber. Avoid raw or cooked vegetables, fresh fruits (except bananas) and bran cereals. Limit caffeine and chocolate. No spices or seasonings except salt. During the next 24 hours: Gradually resume a normal diet, as you feel better and your symptoms improve. If at any timeyour symptomsstart getting worse again, go back to clear liquids until you feelbetter. Food preparation If you have diarrhea, youshould not prepare food for others. When preparing foods, wash your hands before and after. Wash your hands or use alcohol-based electronic scale tester after using cutting boards, countertops, and knives that have been in contact with raw food. Dry your hands with a single use towel. Keep uncooked meats away from cooked and rirvi-ca-cnz foods. Follow-up care Follow up with your healthcare provider, or as advised. Call if you don't get better in the next 2 to 3 days. If a stool (diarrhea) sample was taken,or cultures done, you will be told if they are positive, or if your treatment needs to be changed. You may call as directed for the results. If X-rays were taken, you will be notified of any new findings that may affect your care Call 911 Call 911 if any of these occur: Trouble breathing Chest pain Confusion Severe drowsiness or trouble awakening Fainting or loss of consciousness Rapid heart rate Seizure Stiff neck Severe weakness, dizziness, or lightheadedness When to seek medical advice Call your healthcare provider right away if any of these occur: Bloody or black vomit or stools Severe, steady abdominal pain or any abdominal pain that is getting worse Severe headache or stiff neck An inability to hold down even sips of liquids for more than 12 hours Vomiting that lasts more than 24 hours Diarrhea that lasts more than 24 hours Fever of 100.4F (38.0C) or higher, or as directed by your healthcare provider Yellowish color to your skin or the whites of your eyes Signs of dehydration,such as dry mouth, little urine (less than every 6 hours), or very dark urine Ret[employer]in last reviewed this educational content on 12/16/201719991169-2633 [employer]. [address] [place] [address], [place] [address]. All rights reserved. This information is not [...] documented as of this encounter ED Notes Joe Sandoval MD - 04/04/2020 8:46 AM PDT Images from the original note were not included. eMERGENCY dEPARTMENT eNCOUnter CHIEF COMPLAINT Chief Complaint Patient presents with Emesis Dehydration HPI Mauri Levine is a 34 y.o. male with a history of diabetes, gastroparesis, hypertension, CKD, who presented with nausea and vomiting. The patient reported that this episode started about 3 days ago. The patient reported that the symptoms are consistent with his prior episodes of gastroparesis. The patient reported that the symptoms were gradual onset, intermittent, relieved by nothing. The patient denied experiencing pain, fevers, shortness of breath. The patient stated that he uses Phenergan and Zofran for these episodes. PAST MEDICAL HISTORY Past Medical History: Diagnosis Date Anxiety Diabetes mellitus Gastroparesis Hypertension Neuropathy Renal disorder Type 1 diabetes mellitus with autonomic neuropathy SURGICAL HISTORY History reviewed. No pertinent surgical history. CURRENT MEDICATIONS Current Outpatient Medications Medication Sig Dispense Refill furosemide (LASIX) 20 MG tablet take 1 tablet by mouth once daily if needed for EDEMA/HYPERTENSIO... (REFER TO PRESCRIPTION NOTES). lisinopriL (PRINIVIL,ZESTRIL) 5 MG tablet Take 5 mg by mouth ondansetron (ZOFRAN-ODT) 4 MG disintegrating tablet dissolve 1 tablet ON TONGUE every 6 hours ifneeded for nausea promethazine (PHENERGAN) 25 mg/mL injection Inject 12.5 mg into the muscle every 6 (six) hours as needed atorvastatin (LIPITOR) 40 MG tablet Take 40 mg by mouth nightly carvediloL (COREG) 3.125 MG tablet Take 1 tablet (3.125 mg total) by mouth 2 (two) times daily with meals 60 tablet 0 cloNIDine (CATAPRES-TTS) 0.2 mg/24 hr apply 1 patch topically every week fluvoxaMINE (LUVOX) 50 MG tablet Take 100 mg by mouth nightly gabapentin (NEURONTIN) 300 [...] BEFORE BREAKFAST AND DINNER FOR 90 DAYS senna (SENOKOT) 8.6 mg tablet Take 8.6 [...] Other (See Comments) "Tardive Diskinesia per SO" FAMILY HISTORY History reviewed. No pertinent family history. SOCIAL HISTORY Social History Socioeconomic History Marital status: Single Spouse name: None Number of children: None Years of education: None Highest education level: None Occupational History None Social Needs Financial resource strain: None Food insecurity Worry: None Inability: None Transportation needs Medical: None Non-medical: None Tobacco Use Smoking status: Never Smoker Smokeless tobacco: Never Used Substance and Sexual Activity Alcohol use: Never Frequency: Never Drug use: Yes Frequency: 7.0 times per week Types: Marijuana Sexual activity: None Lifestyle Physical activity Days per week: None Minutes per session: None Stress: None Relationships Social connections Talks on phone: None Gets together: None Attends zoroastrianism service: None Active member of club or organization: None Attends meetings of clubs or organizations: None Relationship status: None Intimate partner violence Fear of current or ex partner: None Emotionally abused: None Physically abused: None Forced sexual activity: None Other Topics Concern None Social History Narrative None REVIEW OF SYSTEMS Constitutional: Denies fever Eyes: Denies visual changes HENT: Denies throat pain Respiratory: Denies cough Cardiovascular: Denies chest pain GI: Denies abdominal pain : No dysuria Musculoskeletal: Denies back pain Skin: Denies rash Neurologic: Denies headache PHYSICAL EXAM VITAL SIGNS: ED Triage Vitals [04/04/20 0842] Temp Pulse Resp BP SpO2 SPO2 Pulse Rate Pain Score -- -- 16 (!) 171/101 97 % 91 -- ED Encounter Vitals Date and Time Temp Pulse Resp BP SpO2 SPO2 Pulse Rate ID 04/04/20 0842 -- -- 16 171/101 97 % 91 CT Constitutional: No acute distress, Non-toxic appearance. HENT: Normocephalic, Atraumatic, Supple, No stridor. Eyes: Conjunctiva normal, No discharge. Respiratory: Normal breath sounds, No respiratory distress, No wheezing, No chest tenderness. Cardiovascular: Normal heart rate, Normal rhythm, No murmurs, No rub GI: Soft, No tenderness, No masses, No pulsatile masses. Musculoskeletal: Intact distal pulses, No edema, No tenderness. Back: No tenderness. Integument: Warm, Dry, No erythema, No rash. Neurologic: Alert, Normal motor function, Normal sensory function, No focal deficits noted. MEDICAL DECISION MAKING : Mauri Levine is a 34 y.o. male with a history of diabetes, gastroparesis, hypertension, CKD, who presented with nausea and vomiting. On exam, the patient's abdomen was soft and nontender. I have low clinical suspicion for acute intra-abdominal surgical pathology. The differential includes gastritis, r ecurrent gastroparesis, foodborne illness, viral infection, less likely cholecystitis, colitis, diverticulitis, appendicitis. We will obtain laboratory studies. The patient will be provided supportive care in the ER. ED COURSE: LABS Labs Reviewed CBC WITH AUTO DIFFERENTIAL - Abnormal; Notable for the following components: Result Value White Blood Cells 13.5 (*) Absolute Neutrophils 10.6 (*) Absolute Monocytes 1.2 (*) All other components within normal limits COMPREHENSIVE METABOLIC PANEL - Abnormal; Notable for the following components: Glucose 227 (*) BUN 39 (*) Creatinine 3.55 (*) Sodium 128 (*) Potassium 3.3 (*) Chloride 81 (*) CO2 38 (*) Total Protein 8.7 (*) Alkaline Phosphatase 132 (*) All other components within normal limits [...] of hyperglycemia or hyperglycemic crisis, indicates diabetes. URINALYSIS - Abnormal; Notable for the following components: UA Glucose 50 (*) UA Ketones Trace (*) UA Protein >300 (*) UA RBC 3-5 (*) All other components within normal limits LIPASE - Normal RADIOLOGY No orders to display ED MEDICATIONS: Medications potassium, sodium phosphates (PHOS-NAK) 280-160-250 mg packet 1 packet (has no administration in time range) sodium chloride 0.9 % infusion 1,000 mL (0 mLs Intravenous Stopped 04/04/20 1015) promethazine (PHENERGAN) injection 25 mg (25 mg Intravenous Given 04/04/20 0907) diphenhydrAMINE (BENADRYL) injection 25 mg (25 mg Intravenous Given 04/04/20 0907) ondansetron (ZOFRAN) injection 4 mg (4 mg Intravenous Given 04/04/20 09) sodium chloride 0.9 % infusion 1,000 mL (1,000 mLs Intravenous New Bag 04/04/20 1138) sodium chloride 0.9 % infusion 1,000 mL (0 mLs Intravenous Stopped 04/04/20 1135) Assessment and Plan: Mauri Levine is a 34 y.o. male with a history of diabetes, gastroparesis, hypertension, CKD, who presented with nausea and vomiting. On exam, the patient's abdomen was soft and nontender. The patient's laboratory studies demonstrated elevated white blood cell count, likely reactive in the setting of recurrent vomiting. The patient's laboratory studies also demonstrated CKD, mild hyponatremia consistent with prior studies, mild hypokalemia. The patient was provided IV Phenergan, IV Zofran, 3 L of IVnormal saline, oral potassium. The patient subsequently reported that his symptoms resolved. The patient was able to tolerate oral fluids. The patient reported that he was feeling better and requested to be discharged home. The patient was provided extensive verbal return precautions. The patient was instructed to follow-up with his primary care doctor in 1-2 days. The patient was nontoxic appearing at the time of discharge. [place] [address] [place] [address] Call in 1 day FINAL IMPRESSION 1. Non-intractable vomiting with nausea, unspecified vomiting type 2. Dehydration Joe Sandoval MD 04/04/20 1330 Lucia Wei RN - 04/04/2020 8:41 AM PDT Pt here for nausea and vomiting x 3 days. Hx of gastroparesis and ckd. Feels very dehydrated. Denies abd pain. Been doing IM phenergan - not helping. documented in this encounter Miscellaneous Notes [facility]-Visit History - [place] Interface Model - 04/04/2020 8:33 AM PDT [facility] has no Care Guidelines for this [...] Rx Count:0 ED/UCC VISIT TRACKING (3 MO.) 04/04/2020 08:32 Sid LOREDO TYPE: Emergency DIAGNOSES: - EMESIS; DEHYDRATION INPATIENT VISIT TRACKING (1 MO.) No inpatient visits to display in this time frame EDeena. VISIT COUNT (12 MO.) 1 [facility]. 0 Medicaid [place] Dx 2 [facility] 0 Medicaid [place] Dx 4 [facility] 0 Medicaid NE Dx TOTAL 7 TOTAL MEDICAID NE DX 0 NOTE: Visits indicate total known visits. Medicaid [place] Dx are the number of primary diagnoses on the [facility] non-emergent dx list. CARE PROVIDERS KWAME FLORES [facility] Current PHONE: [phone] CLAUDIA SIEGEL L, Nurse Practitioner: Psychiatric/Mental Health Current WENDY L PHONE: Unknown [facility] Primary Care Current PHONE: Unknown [facility] Current PHONE: [phone] DENTAL ONLY Primary Care Current PHONE: [phone] [email or web address] Security Events No recent Security Events currently on file documented in this encounter Plan of Treatment Not on filedocumented as of this encounter Procedures Procedure Name Priority Date/Time Associated Comments Diagnosis URINALYSIS WITH REFLEX STAT 04/04/2020 10:33 R esults for this TO CULTURE IF AM PDT procedure are in INDICATED the results section. CBC WITH AUTO STAT 04/04/2020 8:53 AM Results for this DIFFERENTIAL PDT procedure are i n the results section. LIPASE STAT 04/04/2020 8:53 AM Results f or this PDT procedure are i n the results section. COMPREHENSIVE STAT 04/04/2020 8:53 AM Results for this METABOLIC PANEL PDT procedure ar e in the results section. documented in this encounter Results (ABNORMAL) Urinalysis (04/04/2020 10:33 AM PDT) [facility] Method Time Signature UA Color Yellow Yellow 04/04/2020 [facility] 10:55 AM PDT UA Appearance Clear Clear 04/04/2020 [facility] 10:55 AM PDT UA Glucose 50 (A) Negative 04/04/2020 [facility] mg/dL 10:55 AM PDT UA Bilirubin Negative Negative 04/04/2020 [facility] 10:55 AM PDT UA Ketones Trace (A) Negative 04/04/2020 [facility] mg/dL 10:55 AM PDT UA Specific 1.010 1.001 - 04/04/2020 [facility] [place] 1.030 10:55 AM PDT UA Blood Negative Negative 04/04/2020 [facility] 10:55 AM PDT UA pH 8.0 5.0 - 8.0 04/04/2020 [facility] 10:55 AM PDT UA Protein >300 (A) Negative 04/04/2020 [facility] mg/dL 10:55 AM PDT UA Nitrite Negative Negative 04/04/2020 [facility] 10:55 AM PDT UA Leukocyte Negative Negative 04/04/2020 [facility] Esterase 10:55 AM PDT UA WBC 0-5 0 - 5 /HPF 04/04/2020 [facility] 10:55 AM PDT UA RBC 3-5 (A) 0 - 2 /HPF 04/04/2020 [facility] 10:55 AM PDT Specimen Anatomical Collection Method Collection Time Receive d Time (Source) Location / / Volume Laterality Urine specimen 04/04/2020 10:33 0 (specimen) AM PDT 10:44 AM PDT (Urine) Joe Sandoval MD URINE ORDERABLES Performing Organization Address City/[facility] Phon e Number [facility] [address] [address] Lipase (04/04/2020 8:53 AM PDT) athologist Signature Lipase 112 73 - 393 U/L 04/04/2020 9:25 [facility] AM PDT Specimen Anatomical Collection Method Collection Time Receive d Time (Source) Location / / Volume Laterality Blood specimen Line / Unknown 04/04/2020 8:53 AM 04/04 9:00 (specimen) PDT AM PDT Joe Sandoval MD LAB BLOOD ORDERABLES Performing Organization Address [facility] Phon e Number [facility] [address] [address] (ABNORMAL) Comprehensive metabolic panel (04/04/2020 8:53 AM PDT) P athologist Signature Glucose 227 (H) 65 - 99 04/04/2020 [facility] mg/dL 9:25 AM PDT BUN 39 (H) 7 - 18 04/04/2020 [facility] MG/DL 9:25 AM PDT Creatinine 3.55 (H) 0.70 - 1.30 04/04/2020 [facility] mg/dL 9:25 AM PDT eGFR 20 m/m/1.73 04/04/2020 [facility] 9:25 AM PDT Comment: GFR < 60: Chronic kidney disease if foun d over a 3 month period. Patient race not entered. If patient i s multiply the calculated GFR by 1.21 Sodium 128 (L) 136 - 145 mmol/L 04/04/2020 9:25 AM PDT [facility] Potassium 3.3 (L) 3.5 - 5.1 mmol/L 04/04/2020 9:25 AM PDT [facility] Chloride 81 (L) 98 - 107 mmol/L 04/04/2020 9:25 AM PDT [facility] CO2 38 (H) 21 - 32 mmol/L 04/04/2020 9:25 AM PDT [facility] Anion Gap 9 5 - 16 mmol/L 04/04/2020 9:25 AM PDT [facility] Calcium 9.3 8.5 - 10.1 mg/dL 04/04/2020 9:25 AM PDT [facility] Total Protein 8.7 (H) 6.4 - 8.2 G/DL 04/04/2020 9:25 AM PD T [facility] Albumin 3.9 3.4 - 5.0 G/DL 04/04/2020 9:25 AM PDT [facility] Bilirubin Total 0.7 0.2 - 1.0 mg/dL 04/04/2020 9:25 AM PDT [facility] Alkaline Phosphatase 132 (H) 45 - 117 U/L 04/04/2020 9:25 AM PDT [facility] AST (SGOT) 19 15 - 37 U/L 04/04/2020 9:25 AM PDT [facility] ALT (SGPT) 24 16 - 61 U/L 04/04/2020 9:25 AM PDT [facility] Specimen Anatomical Collection Method Collection Time Receive d Time (Source) Location / / Volume Laterality Blood specimen Line / Unknown 04/04/2020 8:53 AM 04/04 9:00 (specimen) PDT AM PDT Narrative [facility] - 04/04/2020 9:25 AM PDT Glucose Reference Range : ADA 2012 Diagnostic Categories for nonpr egnant adults: Impaired fasting glucose 100-125 mg/dL A fasting glucose result of 126 mg/dL or greater indicates diabetes if the abnormality is confirmed on a subsequent day. A random glucose of 200 mg/dL or greater in a patient with symptoms of hyperglycemia or hyperglycemic crisis, indicates diabetes. Joe Sandoval MD LAB BLOOD ORDERABLES Performing Organization Address City/State/ZIP Code Phon e Number [facility] [address] [place] [address] (ABNORMAL) CBC With Auto Differential (04/04/2020 8:53 AM PDT) [facility] Method Time Signature White Blood 13.5 (H) 3.8 - 11.0 04/04/2020 [facility] Cells k/ul 9:09 AM PDT RBC 4.72 4.20 - 04/04/2020 [facility] 5.70 M/uL 9:09 AM PDT Hemoglobin 14.0 13.2 - 04/04/2020 [facility] 17.0 g/dL 9:09 AM PDT Hematocrit 41.3 39.0 - 04/04/2020 [facility] 50.0 % 9:09 AM PDT MCV 87.5 80.0 - 04/04/2020 [facility] 100.0 fL 9:09 AM PDT MCH 29.7 27.0 - 04/04/2020 [facility] 34.0 pg 9:09 AM PDT MCHC 33.9 32.0 - 04/04/2020 [facility] 35.5 g/dL 9:09 AM PDT RDW-CV 13.6 11.0 - 04/04/2020 [facility] 15.5 % 9:09 AM PDT Platelet Count 311 150 - 400 04/04/2020 [facility] K/uL 9:09 AM PDT MPV 9.0 7.0 - 11.3 04/04/2020 [facility] fL 9:09 AM PDT nRBC(auto)% 0.0 0.0 - 2.0 04/04/2020 [facility] /100 WBC 9:09 AM PDT Neutrophils % 78.8 % 04/04/2020 [facility] (Auto) 9:09 AM PDT Lymphocytes % 11.8 % 04/04/2020 [facility] 9:09 AM PDT Monocytes % 8.7 % 04/04/2020 [facility] (Auto) 9:09 AM PDT Eosinophils % 0.2 % 04/04/2020 [facility] 9:09 AM PDT Basophils % 0.6 % 04/04/2020 [facility] 9:09 AM PDT Absolute 10.6 (H) 1.9 - 7.4 04/04/2020 [facility] Neutrophils k/uL 9:09 AM PDT Absolute 1.6 1.0 - 3.9 04/04/2020 [facility] [facility] Lymphocytes k/uL 9:09 AM PDT Absolute 1.2 (H) 0.0 - 0.8 04/04/2020 [facility] Monocytes k/uL 9:09 AM PDT Absolute 0.0 0.0 - 0.5 04/04/2020 [facility] Eosinophils k/uL 9:09 AM PDT Absolute 0.1 0.0 - 0.1 04/04/2020 [facility] Basophils k/uL 9:09 AM PDT Specimen Anatomical Collection Method Collection Time Receive d Time (Source) Location / / Volume Laterality Blood specimen Line / Unknown 04/04/2020 8:53 AM 04/04 9:00 (specimen) PDT AM PDT Joe Sandoval MD LAB BLOOD ORDERABLES Performing Organization Address City/State/ZIP Code Phon e Number [facility] [address] [place] [address] documented in this encounter Visit Diagnoses Diagnosis Non-intractable vomiting with nausea, un specified vomiting type - Primary Dehydration documented in this encounter Administered Medications Inactive Administered Medications - up to 3 most recent administrations Medication Order MAR Action Action Date Dose Rate Site diphenhydrAMINE (BENADRYL) Given 04/04/2020 9:07 AM PDT 25 mg injection 25 mg 25 mg, Intravenous, Once On Tue04/04/20 at 0858, For 1 dose ondansetron (ZOFRAN) injection 4 mg Given 04/04/2020 9:07 AM PDT 4 mg 4 mg, Intravenous, Once On Tue04/04/20 at 0859, For 1 dose, If ordered IV route: may give undiluted by slow IV push over 1/2 to 2 minutes potassium, sodium phosphates (PHOS-NAK) Given 04/04/2020 1:39 PM PDT 1 packet 280-160-250 mg packet 1 packet 1 packet, Oral, Once On Tue04/04/20 at 1059, For 1 dose, mg dosing is based on phosphorus component. Each packet contains 250 mg elemental phosphorus. Mix 1 packet with 75 mL of water or juice. Stir well promethazine (PHENERGAN) injection 25 mg Given 04/04/2020 9:07 AM PDT 25 mg 25 mg, Intravenous, Once On Tue04/04/20 at 0858, For 1 dose sodium chloride 0.9 % infusion New Bag 04/04/2020 8:54 AM PDT 1,000 mLs 1000 mL/hr 1,000 mL at 1,000 mL/hr, Intravenous, Once, On Tue04/04/20 at 0847, For 1 dose, 1000mL sodium chloride 0.9 % infusion New Bag 04/04/2020 11:38 AM PDT 1,000 mLs 1000 mL/hr 1,000 mL at 1,000 mL/hr, Intravenous, Once, On Tue04/04/20 at 1014, For 1 dose, For 1000 mL sodium chloride 0.9 % infusion New Bag 04/04/2020 10:27 AM PDT 1,000 mLs 1000 mL/hr 1,000 mL at 1,000 mL/hr, Intravenous, Once, On Tue04/04/20 at 1014, For 1 dose, For 1000 mL documented in this encounter Active and Recently Administered Medications Times are shown in PDT. Scheduled Medication Order 04/02/2020 04/03/2020 04/04/2020 diphenhydrAMINE (BENADRYL) injection 25 mg (COMPLETED) 906 (Given - Provider: Greg De La Rosa RN) 25 mg, Intravenous, Once Tue04/04/20 at 0858, For 1 dose ondansetron (ZOFRAN) injection 4 mg (COMPLETED) 906 (Given - Provider: Greg De La Rosa RN) 4 mg, Intravenous, Once Tue04/04/20 at 0859, For 1 dose, If ordered IV route: may give undiluted by slow IV push over 1/2 to 2 minutes potassium, sodium phosphates (PHOS-NAK) 280-160-250 mg packet 1 packet (COMPLETED) 1339 (Given - Provid er: Greg De La Rosa RN) 1 packet, Oral, Once Tue04/04/20 at 1059, For 1 dose, mg dosing is based on phosphorus component. Each packet contains 250 mg elemental phosphorus. Mix 1 packet with 75 mL of water or juice. Stir well promethazine (PHENERGAN) injection 25 mg (COMPLETED) 906 (Given - Provider: Greg De La Rosa RN) 25 mg, Intravenous, Once Tue04/04/20 at 0858, For 1 dose sodium chloride 0.9 % infusion 1,000 mL (COMPLETED) 0854 (New Bag - Provider: Lucia Wei RN)1015 (Stopped - Provider: Greg De La Rosa RN) at 1,000 mL/hr, Intravenous, Once, 04/04/20 at 0847, For 1 do se, 1000mL sodium chloride 0.9 % infusion 1,000 mL (COMPLETED) 1138 (New Bag - Provider: Greg De La Rosa RN)1300 (Stopped - Provider: Greg De La Rosa RN) at 1,000 mL/hr, Intravenous, Once, On Fr i 04/04/20 at 1014, For 1 dose, For 1000 mL sodium chloride 0.9 % infusion 1,000 mL (COMPLETED) 1027 (New Bag - Provider: Greg De La Rosa RN)1135 (Stopped - Provider: Greg De La Rosa RN) at 1,000 mL/hr, Intravenous, Once, 04/04/20 at 1014 , For 1 dose, For 1000 mL documented in this encounter
[2022-07-24 18:01] LABS: ABG Methemoglobin 0.3 % (0.4-1.5); Total Hemoglobin 9.9 gm/Dl (13.5-16.5); VBG Base Excess 9 (-2-3); VBG HCO3 31.4 mmol/L (24.0-28.0); VBG Oxygen Saturation 87.7 % (40.0-70.0); VBG PCO2 36.6 mmHg (41.0-51.0); VBG PH 7.55 U (7.32-7.42); VBG PO2 114.2 mmHg (25.0-40.0); VBG Total CO2 32.6 mmol/L (25.0-29.0)
[2022-07-24 18:30] LABS: Beta Hydroxybutyrate 0.07 mmol/L (<0.27)
[2022-07-24 18:31] LABS: Blood Urea Nitrogen 61 mg/dL (6-20); Calcium 8.5 mg/dL (8.6-10.4); Carbon Dioxide 35 mmol/L (22-30); Chloride 93 mmol/L (96-108); Glomerular Filtration Rate 17; Glucose 131 mg/dL (70-105)
[2022-07-24] MEDS ORDERED: DEXTROSE 50% 50 ML VIAL IV PRN (19:21)
[2022-07-24] MEDS ORDERED: DEXTROSE 31 GM ORAL.SUSP PO PRN (19:21)
[2022-07-24] MEDS ORDERED: 0.45 % SODIUM CHLORIDE 1,000 ML IV SCH (19:30)
[2022-07-24] MEDS ORDERED: INSULIN LISPRO 1 UNIT/0.01 ML UNIT SQ ONE (20:20)
[2022-07-24] MEDS: diphenhydrAMINE 25 MG CAPSULE PO PRN (20:54)
[2022-07-24] MEDS: ACETAMINOPHEN 325 MG TABLET PO PRN (20:55)
[2022-07-24] MEDS: MIRTAZAPINE 15 MG TABLET PO SCH (20:55)
[2022-07-24] MEDS: FAMOTIDINE/PF 20 MG/2 ML VIAL IV SCH (20:57)
[2022-07-25] MEDS: LABETALOL 5 MG/ML ML IV PRN ×5 (02:22→22:38)
[2022-07-25] MEDS: INSULIN LISPRO 1 UNIT/0.01 ML UNIT SQ SCH ×5 (03:35→21:01)
--- NOTE | 2022-07-25 05:49 | Ultrasound Report ---
CLINICAL INFORMATION: Elevated d-dimer COMPARISON: None. FINDINGS: The entire deep venous system including the common femoral, superficial femoral, popliteal and paired trifurcation calf veins are easily compressible and show normal venous blood flow on color and spectral Doppler. No evidence of thrombus IMPRESSION: Negative exam - no evidence of deep vein thrombosis. Interpreted and Authenticated by: Demetrius Smart 07/25/22
[2022-07-25] MEDS: DILTIAZEM 30 MG TABLET PO SCH ×3 (06:05→21:03)
[2022-07-25] MEDS: 0.9 % SODIUM CHLORIDE 10 ML SYRINGE IV SCH ×3 (06:22→22:00)
[2022-07-25 06:26] LABS: Basophils # (Auto) 0.04 K/mcL (0.00-0.30); Basophils % (Auto) 0.5 % (0.0-2.0); Eosinophils # (Auto) 0.02 K/mcL (0.00-0.70); Eosinophils % (Auto) 0.2 % (0.0-7.0); Hematocrit 27.6 % (40.1-51.0); Hemoglobin 8.4 g/dL (13.7-17.5); Lymphocytes # (Auto) 2.14 K/mcL (1.50-4.80); Lymphocytes % (Auto) 25.3 % (15.5-49.0); Mean Cell Volume 87.6 fL (80.0-100.0); Mean Corpuscular HGB Conc 30.4 g/dL (31.0-36.0); Mean Platelet Volume 11.1 fL (8.8-12.5); Monocytes # (Auto) 0.66 K/mcL (0.10-0.90); Monocytes % (Auto) 7.8 % (1.0-12.0); Neutrophils % (Auto) 66.1 % (38.0-78.0); Platelet Count 235 K/mcL (140-440); RBC 3.15 M/mcL (4.63-6.08); Red Cell Distribution Width 15.6 % (11.5-14.5); WBC 8.5 K/mcL (4.5-11.0)
[2022-07-25 06:44] LABS: ALT/SGPT 9 U/L (<40); AST/SGOT 15 U/L (<40); Albumin 3.3 gm/dL (3.2-5.2); Albumin/Globulin Ratio 1.3 (1.0-2.3); Alkaline Phosphatase 107 U/L (39-117); Bilirubin,Direct < 0.2 mg/dL (0-0.3); Bilirubin,Total < 0.2 mg/dL (0.1-1.0); Blood Urea Nitrogen 55 mg/dL (6-20); Calcium 8.7 mg/dL (8.6-10.4); Carbon Dioxide 27 mmol/L (22-30); Chloride 97 mmol/L (96-108); Globulin 2.5 gm/dL (2.2-3.7); Glomerular Filtration Rate 17; Glucose 188 mg/dL (70-105); Lactate Dehydrogenase 189 U/L (135-225); Phosphorous 2.7 mg/dL (2.5-4.5); Triglycerides 152 mg/dL (<150); Uric Acid 7.6 mg/dL (2.5-8.0)
[2022-07-25] MEDS ORDERED: HALOPERIDOL LACTATE 5 MG/ML VIAL IV SCH (08:02)
[2022-07-25] MEDS: FLUoxetine HCL 20 MG CAPSULE PO SCH (08:11)
[2022-07-25] MEDS: HEPARIN 5,000 UNIT/ML VIAL SQ SCH ×2 (08:11→20:28)
[2022-07-25] MEDS: CARVEDILOL 6.25 MG TABLET PO SCH ×2 (08:11→20:28)
[2022-07-25] MEDS: VENLAFAXINE 75 MG CAP.XL.24H PO SCH (08:11)
[2022-07-25] MEDS: POTASSIUM CHLORIDE 20 MEQ TABLET PO PRN (08:22)
[2022-07-25] MEDS: PROMETHAZINE 25 MG/ML VIAL IV PRN ×2 (08:22→20:29)
[2022-07-25] MEDS ORDERED: hydrALAZINE 20 MG/ML VIAL IV PRN (08:26)
--- NOTE | 2022-07-25 08:28 | Internal Med Progress Note ---
SUBJECTIVE Subjective Patient information: Note initiated : 07/25/22 at 8:24 am Service Date, if different from initiated Date: [] Patient: Mauri Levine a 36 y/o M admitted on 07/23/22 for Gastroparesis. Chief Complaint: [] Principal diagnosis: DKA, THC hyperemesis, ARF on CKD 4, Triple acid/base disorder, Electrolyte Interval history: History of present illness: Mr. Levine is a 36 year old M Presents the ED with 3 days of nausea/vomiting. Patient has history of diabetes with DKA and also history of gastroparesis and nausea vomiting frequent the ED and has many hospitalizations. He also uses marijuana this could very well be marijuana hyperemesis. Other consideration could be cyclic vomiting alone or in conjunction with marijuana use. Per old notes he exhibits binge eating disorder habits. Per the patient he said his Dexcom was not working recently. Family member say he is not always honest with his blood sugars. History is difficult to obtain from the patient as he is drowsy and altered. Per the family at its been extremely difficult situation. They have been looking for placement for him but that he placement taken because he is either diabetic type 1 or is too young. Mother also states that he had a gastric emptying study when he was up at [facility] in February that was normal. Patient has a gastric stimulator in place and follows with [facility]. 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 Pt has been admitted 9 times this year and visited ED much more. In the ED is found to have a metabolic alkalosis as usual. Contraction alkalosis from volume loss and H+ loss from emesis. His creatinine was 5.9 in the ED. Vital signs were stable other than a mildly tachycardic heart rate and elevated blood pressure as usual. CT abdomen pelvis unremarkable other than some mild right hydronephrosis iliac crossing and bladder distention bicarb is 39 and potassium 3.3. Chloride <60. Sodium 121. Glucose 1309, anion gap of 22. Mild leukocytosis at 12.4 Osmolality 381. Beta hydroxybutyric acid 9.8 He has some abdominal pain from the nausea. No chest pain or shortness of breath. 07/24 Patient says slept well. Feeling better today. Able to keep down clear liquids without vomiting. Abdominal pain improving. Still ketones in his blood. Down to almost 300 blood glucose now. However patient is on oxygen because of hypoxia overnight. Will obtain chest x- ray. Perhaps he aspirated. Acid-base disturbance. Creatinine elevated. Multiple electrolyte imbalances. 07/25 Patient did not sleep at all last night per nursing, he had visual hallucinations through the night and agitated at times. Currently sleeping as he was given Haldol for a CT brain scan. d/c scop patch. Otherwise Acid-base and chemistry improving. Renal function no change from yesterday. Adequate urine output. Review of Systems: Unable to obtain due to sedation Constitutional Vitals: Vital Signs Temp Pulse Resp BP Pulse Ox O2 Del Method O2 Flow Rate 99.6 F H 60 28 H 177/89 96 2 07/25/22 07:10 07/25/22 07:10 07/25/22 07:10 07/25/22 07:02 07/25/22 07:10 07/25/22 05:01 07/24/22 19:46 Period Temp Pulse Resp BP Sys/Menard Pulse Ox O2 Del Method O2 Flow Rate Last 24 Hr 97.9 F-99.6 F 58-84 12-28 140-192/77-133 91-100 Oxymask-Room A ir 2-98 Intake and Output 07/24/22 07/25/22 07/25/22 19:59 03:59 11:59 Intake Total 3423 240 Output Total 1445 1750 620 Balance 1977 Weight 68.81 kg 70.987 kg Intake & Output: Intake & Output 07/24/22 07/25/22 07/25/22 19:59 03:59 11:59 Intake Total 3423 240 Output Total 1445 1750 620 Balance 1977 Weight 68.81 kg 70.987 kg Intake: IV 1643 Sodium Chloride 0.9% 1,000 ml @ 92 125 mls/hr IV .Q8H [facility] Rx#: [id number] Dextrose 5%-1/2Ns IV Solution 1 1518 ,000 ml @ 175 mls/hr IV .[id number] [facility] Rx#:[id number] HumuLIN R 50 UNIT In Sodium 33 Chloride 0.9% 99.5 ml @ 7 UNIT/ HR 14 mls/hr IV DUR [facility] Rx#: [id number] Oral 1780 240 Output: Urine Catheter Amount 9105 9956 620 Other: Urine Appearance Clear Clear Clear Uretheral (Mcknight) Clear Clear Urine Color Pale Yellow Yellow Pale Pale Uretheral (Mcknight) Yellow Yellow Pale Pale Urine Odor Normal Normal Uretheral (Mcknight) Normal Stool Size Small Stool Color Brown Stool Consistency Soft Exam: General: sleeping, No acute Distress Eyes/N/T: EOMI, Head/Neck: neck supple, CV: RRR, 3/6SM, Pulm: Clear b/l, no wheezing/rhonchi/rales Abd: soft, nontender, +BS x4 Ext: no clubbing/cyanosis/edema Neuro: sleeping, just given sedation for CT study, moves extremities spontaneously Skin: warm/dry OBJ DATA Labs CBC & Chem 7: 07/25/22 05:10 07/25/22 05:10 Labs: Abnormal Lab Results 07/25/22 07/25/22 07/25/22 05:10 05:10 05:10 WBC RBC 3.15 L Hgb 8.4 L Hct 27.6 L POC Hct MCHC 30.4 L RDW 15.6 H Neut % (Auto) Lymph % (Auto) Hancock % (Auto) Lymph # (Auto) H[place] # (Auto) Seg Neutrophils % Lymphocytes % Immature Gran # Absolute Neutrophils RBC Morphology Anisocytosis D-Dimer ABG Methemoglobin VBG pH VBG pCO2 VBG pO2 VBG HCO3 VBG Total CO2 VBG O2 Saturation VBG Base Excess Carboxyhemoglobin Total Hemoglobin POC Sodium Sodium POC Potassium Potassium POC Chloride Chloride Carbon Dioxide POC Total CO2 Anion Gap POC BUN BUN 55 H Creatinine 4.3 H POC Creatinine Glucose 188 H POC Glucose Osmolality Uric Acid Calcium POC WB Ioniz Calcium Phosphorus Magnesium 3.2 H Alkaline Phosphatase Lactate Dehydrogenase Total Protein 5.8 L Triglycerides 152 H Lipase Beta-Hydroxybutyrate 0.41 H Urine Protein Urine Glucose (UA) Urine Ketones 07/24/22 07/24/22 07/24/22 17:42 17:42 13:13 WBC RBC Hgb Hct POC Hct MCHC RDW Neut % (Auto) Lymph % (Auto) Hancock % (Auto) Lymph # (Auto) [place] # (Auto) Seg Neutrophils % Lymphocytes % Immature Gran # Absolute Neutrophils RBC Morphology Anisocytosis D-Dimer 2.56 H ABG Methemoglobin 0.3 L VBG pH 7.55 H VBG pCO2 36.6 L VBG pO2 114.2 H VBG HCO3 31.4 H VBG Total CO2 32.6 H VBG O2 Saturation 87.7 H VBG Base Excess 9 H Carboxyhemoglobin 9.8 H Total Hemoglobin 9.9 L POC Sodium Sodium POC Potassium Potassium 3.1 L POC Chloride Chloride 93 L Carbon Dioxide 35 H POC Total CO2 Anion Gap POC BUN BUN 61 H Creatinine 4.3 H POC Creatinine Glucose 131 H POC Glucose Osmolality Uric Acid Calcium 8.5 L POC WB Ioniz Calcium Phosphorus Magnesium Alkaline Phosphatase Lactate Dehydrogenase Total Protein Triglycerides Lipase Beta-Hydroxybutyrate Urine Protein Urine Glucose (UA) Urine Ketones 07/24/22 07/24/22 07/24/22 05:26 05:26 05:16 WBC RBC Hgb Hct POC Hct 31.0 L MCHC RDW Neut % (Auto) Lymph % (Auto) Hancock % (Auto) Lymph # (Auto) [place] # (Auto) Seg Neutrophils % 82 H Lymphocytes % 12 L Immature Gran # Absolute Neutrophils RBC Morphology Abnormal A Anisocytosis 1+ A D-Dimer ABG Methemoglobin VBG pH VBG pCO2 VBG pO2 VBG HCO3 VBG Total CO2 VBG O2 Saturation VBG Base Excess Carboxyhemoglobin Total Hemoglobin POC Sodium Sodium POC Potassium Potassium POC Chloride 83 L Chloride 86 L Carbon Dioxide 38 H POC Total CO2 42.0 H Anion Gap POC BUN 81 H BUN 79 H Creatinine 5.1 H* POC Creatinine 5.4 H* Glucose 598 H* POC Glucose 629 H* Osmolality Uric Acid 11.0 H Calcium 7.6 L POC WB Ioniz Calcium 0.89 L Phosphorus 8.3 H* Magnesium 4.3 H* Alkaline Phosphatase 142 H Lactate Dehydrogenase 248 H Total Protein Triglycerides 205 H Lipase Beta-Hydroxybutyrate Urine Protein Urine Glucose (UA) Urine Ketones 07/24/22 07/24/22 07/24/22 05:16 05:00 03:14 WBC 15.8 H RBC 3.52 L Hgb 9.5 L Hct 29.6 L POC Hct 32.0 L MCHC RDW 15.6 H Neut % (Auto) 79.5 H Lymph % (Auto) 7.8 L Hancock % (Auto) 12.1 H Lymph # (Auto) 1.23 L [place] # (Auto) 1.91 H Seg Neutrophils % Lymphocytes % Immature Gran # 0.08 H Absolute Neutrophils 12.60 H RBC Morphology Anisocytosis D-Dimer ABG Methemoglobin VBG pH VBG pCO2 VBG pO2 VBG HCO3 VBG Total CO2 VBG O2 Saturation VBG Base Excess Carboxyhemoglobin Total Hemoglobin POC Sodium 132 L Sodium POC Potassium Potassium POC Chloride 83 L Chloride Carbon Dioxide POC Total CO2 37.0 H Anion Gap POC BUN 81 H BUN Creatinine POC Creatinine 5.7 H* Glucose POC Glucose > 700 H* Osmolality Uric Acid Calcium POC WB Ioniz Calcium 0.80 L Phosphorus Magnesium Alkaline Phosphatase Lactate Dehydrogenase Total Protein Triglycerides Lipase Beta-Hydroxybutyrate 4.11 H Urine Protein Urine Glucose (UA) Urine Ketones 07/24/22 07/24/22 07/24/22 03:10 02:02 01:16 WBC RBC Hgb Hct POC Hct 32.0 L 33.0 L MCHC RDW Neut % (Auto) Lymph % (Auto) [place] % (Auto) Lymph # (Auto) [place] # (Auto) Seg Neutrophils % Lymphocytes % Immature Gran # Absolute Neutrophils RBC Morphology Anisocytosis D-Dimer ABG Methemoglobin VBG pH VBG pCO2 VBG pO2 VBG HCO3 VBG Total CO2 VBG O2 Saturation VBG Base Excess Carboxyhemoglobin Total Hemoglobin POC Sodium Sodium POC Potassium Potassium POC Chloride 81 L 80 L Chloride Carbon Dioxide POC Total CO2 39.0 H 39.0 H Anion Gap POC BUN 83 H 80 H BUN Creatinine POC Creatinine 5.4 H* 5.6 H* Glucose 766 H* POC Glucose > 700 H* > 700 H* Osmolality Uric Acid Calcium POC WB Ioniz Calcium 0.85 L 0.83 L Phosphorus Magnesium Alkaline Phosphatase Lactate Dehydrogenase Total Protein Triglycerides Lipase Beta-Hydroxybutyrate Urine Protein Urine Glucose (UA) Urine Ketones 07/23/22 07/23/22 07/23/22 23:32 21:53 21:05 WBC RBC Hgb Hct POC Hct 34.0 L 34.0 L MCHC RDW Neut % (Auto) Lymph % (Auto) [place] % (Auto) Lymph # (Auto) [place] # (Auto) Seg Neutrophils % Lymphocytes % Immature Gran # Absolute Neutrophils RBC Morphology Anisocytosis D-Dimer ABG Methemoglobin VBG pH VBG pCO2 VBG pO2 VBG HCO3 VBG Total CO2 VBG O2 Saturation VBG Base Excess Carboxyhemoglobin Total Hemoglobin POC Sodium 131 L 132 L Sodium POC Potassium 3.0 L 2.8 L* Potassium 2.8 L* POC Chloride 80 L 78 L Chloride 73 L Carbon Dioxide 36 H POC Total CO2 35.0 H 36.0 H Anion Gap 26.0 H POC BUN 74 H 70 H BUN 87 H Creatinine 5.2 H* POC Creatinine 5.9 H* 6.2 H* Glucose 690 H* POC Glucose > 700 H* > 700 H* Osmolality Uric Acid Calcium 7.3 L POC WB Ioniz Calcium 0.68 L* 0.75 L Phosphorus Magnesium Alkaline Phosphatase Lactate Dehydrogenase Total Protein Triglycerides Lipase Beta-Hydroxybutyrate Urine Protein Urine Glucose (UA) Urine Ketones 07/23/22 07/23/22 07/23/22 21:05 18:50 11:04 WBC RBC Hgb Hct POC Hct MCHC RDW Neut % (Auto) Lymph % (Auto) [place] % (Auto) Lymph # (Auto) [place] # (Auto) Seg Neutrophils % Lymphocytes % Immature Gran # Absolute Neutrophils RBC Morphology Anisocytosis D-Dimer ABG Methemoglobin VBG pH VBG pCO2 VBG pO2 VBG HCO3 VBG Total CO2 VBG O2 Saturation VBG Base Excess Carboxyhemoglobin Total Hemoglobin POC Sodium Sodium POC Potassium Potassium POC Chloride Chloride Carbon Dioxide POC Total CO2 Anion Gap POC BUN BUN Creatinine POC Creatinine Glucose POC Glucose Osmolality 381 H Uric Acid Calcium POC WB Ioniz Calcium Phosphorus Magnesium 4.2 H* Alkaline Phosphatase Lactate Dehydrogenase Total Protein Triglycerides Lipase Beta-Hydroxybutyrate 8.41 H Urine Protein 100 A Urine Glucose (UA) >=500 A Urine Ketones 20 A 07/23/22 07/23/22 07/23/22 11:04 11:01 10:20 WBC RBC Hgb Hct POC Hct MCHC RDW Neut % (Auto) Lymph % (Auto) [place]ancock % (Auto) Lymph # (Auto) [place] # (Auto) Seg Neutrophils % Lymphocytes % Immature Gran # Absolute Neutrophils RBC Morphology Anisocytosis D-Dimer ABG Methemoglobin VBG pH VBG pCO2 VBG pO2 VBG HCO3 VBG Total CO2 VBG O2 Saturation VBG Base Excess Carboxyhemoglobin Total Hemoglobin POC Sodium Sodium 121 L POC Potassium Potassium POC Chloride Chloride < 60 L Carbon Dioxide 39 H POC Total CO2 Anion Gap 22.0 H POC BUN BUN 101 H* Creatinine 5.9 H* POC Creatinine Glucose 1309 H* POC Glucose Osmolality Uric Acid Calcium 7.0 L POC WB Ioniz Calcium Phosphorus Magnesium Alkaline Phosphatase 165 H Lactate Dehydrogenase Total Protein Triglycerides Lipase 192 H Beta-Hydroxybutyrate 9.80 H Urine Protein Urine Glucose (UA) Urine Ketones 07/23/22 10:20 WBC 12.4 H RBC 3.85 L Hgb 10.3 L Hct 31.9 L POC Hct MCHC RDW 15.3 H Neut % (Auto) 82.5 H Lymph % (Auto) 5.2 L Hancock % (Auto) Lymph # (Auto) 0.65 L [place] # (Auto) 1.45 H Seg Neutrophils % Lymphocytes % Immature Gran # Absolute Neutrophils 10.24 H RBC Morphology Anisocytosis D-Dimer ABG Methemoglobin VBG pH VBG pCO2 VBG pO2 VBG HCO3 VBG Total CO2 VBG O2 Saturation VBG Base Excess Carboxyhemoglobin Total Hemoglobin POC Sodium Sodium POC Potassium Potassium POC Chloride Chloride Carbon Dioxide POC Total CO2 Anion Gap POC BUN BUN Creatinine POC Creatinine Glucose POC Glucose Osmolality Uric Acid Calcium POC WB Ioniz Calcium Phosphorus Magnesium Alkaline Phosphatase Lactate Dehydrogenase Total Protein Triglycerides Lipase Beta-Hydroxybutyrate Urine Protein Urine Glucose (UA) Urine Ketones Meds: Medications Acetaminophen (Acetaminophen 325 Mg Tablet) 650 mg PO Q6HP PRN; Protocol PRN Reason: Per Pain Protocol/Fever > 101 Last Admin: 07/24/22 20:55 Dose: 650 mg Albuterol/Ipratropium (Ipratropium/Albuterol 3 Ml Ampul.Neb) 3 ml NEB Q4HP PRN PRN Reason: Shortness Of Breath Carvedilol (Carvedilol 6.25 Mg Tablet) 6.25 mg PO BID [facility] Last Admin: 07/25/22 08:11 Dose: 6.25 mg Clonidine HCl (Clonidine Tts 3 1 Patch Patch) 1 patch TD Fr@1000 [facility] Dextrose (Dextrose 50% 50 Ml Vial) 0 ml IV UD PRN PRN Reason: Per Sliding Scale Diagnostic Test (Pha) (Accu-Chek 1 Each Strip) 1 each FS Q4H [facility] Last Admin: 07/25/22 07:03 Dose: 1 each Diltiazem HCl (Diltiazem 30 Mg Tablet) 60 mg PO Q8 [facility] Last Admin: 07/25/22 06:05 Dose: 60 mg Diphenhydramine HCl (Diphenhydramine 25 Mg Capsule) 25 mg PO HSP PRN PRN Reason: insomnia Last Admin: 07/24/22 20:54 Dose: 25 mg Famotidine (Famotidine/Pf 20 Mg/2 Ml Vial) 20 mg IV HS [facility] Last Admin: 07/24/22 20:57 Dose: 20 mg Fluoxetine HCl (Fluoxetine Hcl 20 Mg Capsule) 20 mg PO QDAY [facility] Last Admin: 07/25/22 08:11 Dose: 20 mg Glucose (Dextrose 31 Gm Oral.Susp) 15 gm PO PRN PRN PRN Reason: Hypoglycemia Haloperidol Lactate (Haloperidol Lactate 5 Mg/Ml Vial) 5 mg IV ONCE [facility] Stop: 07/25/22 10:00 Last Admin: 07/25/22 08:11 Dose: 5 mg Heparin Sodium (Porcine) (Heparin 5,000 Unit/Ml Vial) 5,000 unit SQ Q12 [facility] Last Admin: 07/25/22 08:11 Dose: 5,000 unit Potassium Chloride 40 meq/ (Dextrose) 520 mls @ 130 mls/hr IV UD PRN PRN Reason: Potassium < 3 Last Infusion: 07/24/22 04:54 Dose: Infused Magnesium Sulfate (Magnesium Sulfate) 2 gm in 50 mls @ 50 mls/hr IV UD PRN PRN Reason: Magnesium </= 1.6 Sodium Chloride (Sodium Chloride 0.45%) 1,000 mls @ 75 mls/hr IV .[id number] [facility] Stop: 07/25/22 08:49 Last Admin: 07/24/22 19:33 Dose: 75 mls/hr Insulin Human Lispro (Insulin Lispro 1 Unit/0.01 Ml Unit) 0 unit SQ Q4H [facility]; Protocol Last Admin: 07/25/22 07:02 Dose: 2 units Labetalol HCl (Labetalol 5 Mg/Ml Ml) 0 mg IV Q2HP PRN PRN Reason: Hypertension Last Admin: 07/25/22 07:01 Dose: 20 mg Lorazepam (Lorazepam 2 Mg/Ml Vial) 0.5 mg IV Q8HP PRN PRN Reason: Nausea Anxiety/Sedation Last Admin: 07/24/22 22:59 Dose: 0.5 mg Mirtazapine (Mirtazapine 15 Mg Tablet) 15 mg PO HS [facility] Last Admin: 07/24/22 20:55 Dose: 15 mg Ondansetron HCl (Ondansetron 4 Mg/2 Ml Vial) 4 mg IV Q4HP PRN PRN Reason: Nausea And Vomiting Last Admin: 07/24/22 23:46 Dose: 4 mg Polyethylene Glycol (Polyethylene Glycol 3350 17 Gm Packet) 17 gm PO DAILYP PRN PRN Reason: Constipation Potassium Chloride (Potassium Chloride 20 Meq Tablet) 40 meq PO UD PRN PRN Reason: Potssium is 3-3.5 Last Admin: 07/25/22 08:22 Dose: 40 meq Potassium Chloride (Potassium Chloride 20 Meq Tablet) 40 meq PO UD PRN PRN Reason: Potassium < 3 Promethazine HCl (Promethazine 25 Mg/Ml Vial) 12.5 mg IV Q6HP PRN PRN Reason: Nausea And Vomiting Last Admin: 07/25/22 08:22 Dose: 12.5 mg Ropinirole HCl (Ropinirole 0.25 Mg Tablet) 0.5 mg PO HSP PRN PRN Reason: restless leg Scopolamine (Scopolamine 1 Patch Patch) 1 patch TOPICAL Q72H [facility] Last Admin: 07/23/22 23:40 Dose: 1 patch Senna (Sennosides 1 Tablet) 2 tab PO DAILYP PRN PRN Reason: Constipation Sodium Chloride (0.9 % Sodium Chloride 10 Ml Syringe) 10 ml IV Q8 [facility] Last Admin: 07/25/22 06:22 Dose: 10 ml Venlafaxine HCl (Venlafaxine 75 Mg Cap.Xl.24h) 225 mg PO QAM [facility] Last Admin: 07/25/22 08:11 Dose: 225 mg ABG Interpretation ABG results: 07/24/22 17:42 ABG Methemoglobin 0.3 L VBG pH 7.55 H VBG pCO2 36.6 L VBG pO2 114.2 H VBG HCO3 31.4 H VBG Total CO2 32.6 H VBG O2 Saturation 87.7 H VBG Base Excess 9 H A/P Narrative A/P Narrative: A: *DKA-HHS (h/o DMI with h/o Gastroparesis/Neuropathy): likely triggered by below and likely noncompliance given his history. -BG on admit 1309 *N/V: 2/2 likely marijuana hyperemesis vs cyclic vomiting alone or in conjunction with THC, and h/o gastroparesis *Metabolic Encephalopathy with Delerium: 2/2 above and critical care delerium / sleep deprivation -nurse reports worsening o/n with visual hallucinations *Cannabis use: and likely Cannabis hyperemesis syndrome *ROSALIO on CKD IV: Follows with Dr. Mills -improving *Metabolic alkalosis: 2/2 volume loss and H+ loss from n/v *Volume depletion: improving *Electrolyte d/o (hypokalemia/hypochloremia/Hypermag/Hyperphos): improving *Acute hypoxic respiratory failure: 2/2 suspected aspiration from multiple bouts of emesis -temporarily on O2 during first night, off since. CXR unremarkable *Marijuana use: *Anemia, chronic: *HTN: On coreg/clonidine/captopril *Anxiety/depression/binge eating disorder: on Fluoxetine *Long QT Syndrome: noted on EKG's since 2019. Pt is on SSRI *GERD: *long-term prognosis guarded if he doesn't become more vigilant in caring for his disease P: -icu monitoring -IVF's -insulin gtt off, on ssi, start insulin pump -Monitor electrolytes and replace -Nephrology following -consistent carb diet, low fat -Ct brain pending -Antiemetics, d/c scop patch -cont clonidine/BB IV prn BP meds -echo for loud cardiac murmur -f/u with mental health team -ppx: Heparin/H2 Time Spent With Patient Time: Total time spent is greater than 50% in coordination of care (as documented) at patient's floor/unit and/or counseling patient: Critical Care Time: Yes Total Critical Care Time: 45 QUALITY VTE Deep Vein Thrombosis/Pulmonary Embolism Present on Admission: No
--- NOTE | 2022-07-25 09:48 | EKG ---
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
--- NOTE | 2022-07-25 11:29 | Nephrology Progress Note ---
SUBJECTIVE Subjective Patient information: Note initiated : 07/25/22 at 11:20 am Service Date, if different from initiated Date: [] Patient: Mauri Levine 36 y/o M admitted on 07/23/22 for Gastroparesis. Chief Complaint: [n/v] Principal diagnosis: DKA, THC hyperemesis, ARF on CKD 4, Triple acid/base disorder, Electrolyte Interval history: Some improvement in eGFR CKD G4 and non-oliguric ARF, electrolytes trying to normalize, Still alkalotic with respiratory alkalosis, contraction metabolic alkalosis and an AG (+) metabolic acidosis with DKA. he is MARKEDLY ALKALOTIC and hyperventilating component. Additionally, he is delusional and actively hallucinating andged mother is at bedside and is concerned. If termite control technician care could be arranged, she is in agreement. HD CT from 8 am pending but looks to have left to right frontal shift and effacement of left frontal ventricle. This has not bore out by the final r adiology interpretation (see below). Vital Signs Temp Pulse Resp BP Pulse Ox O2 Del Method O2 Flow Rate 07/25/22 11:01 36.3 C 22 148/74 100 07/25/22 10:01 36.6 C 66 24 H 151/78 100 07/25/22 09:01 37.2 C 63 24 H 169/77 100 07/25/22 08:46 37.3 C H 63 13 169/92 88 L 07/25/22 09:14 23 H 100 Oxymask 2 07/25/22 08:01 37.6 C H 64 19 169/92 98 07/25/22 07:51 37.6 C H 60 14 167/81 98 07/25/22 07:10 37.6 C H 60 28 H 96 07/25/22 07:02 37.6 C H 64 18 177/89 99 07/25/22 06:01 37.4 C H 67 26 H 156/89 94 07/25/22 05:01 37.3 C H 63 26 H 160/82 98 Room Air 07/25/22 04:01 37.2 C 63 28 H 192/83 93 Room Air 07/25/22 03:01 37.0 C 59 L 18 153/89 95 Room Air 07/25/22 02:01 36.9 C 58 L 18 160/84 94 Room Air 07/25/22 01:01 36.9 C 59 L 22 161/80 97 Room Air 07/25/22 00:34 95 Room Air 07/25/22 00:03 36.9 C 59 L 16 170/83 93 Room Air 07/24/22 23:01 36.9 C 64 20 176/85 95 Room Air 07/24/22 22:01 36.7 C 64 21 178/92 96 Room Air 07/24/22 21:01 36.8 C 62 21 163/77 91 Room Air 07/24/22 20:54 36.8 C 62 26 H 184/81 93 Room Air 07/24/22 20:01 36.8 C 66 20 176/133 94 Room Air 07/24/22 19:46 63 16 100 Oxymask 2 07/24/22 19:01 36.8 C 60 21 182/85 99 Oxymask 2 07/24/22 19:00 98 Oxymask 98 07/24/22 18:01 36.9 C 58 L 25 H 151/78 96 07/24/22 17:01 36.9 C 63 22 169/85 97 07/24/22 16:01 36.9 C 63 22 159/80 98 07/24/22 15:15 36.9 C 63 19 171/98 97 07/24/22 14:16 20 Room Air 07/24/22 14:01 36.6 C 67 20 163/86 95 07/24/22 13:10 36.9 C 74 23 H 185/93 94 07/24/22 12:01 37.2 C 78 12 158/80 91 Intake and Output 07/24/22 07/25/22 07/25/22 19:59 03:59 11:59 Intake Total 3423 240 1250 Output Total 1445 1750 1232 Balance 1977 -1509 18 Intake: IV 1643 1250 Sodium Chloride 0.45% 1,000 ml 1000 @ 75 mls/hr IV .[id number] [facility] Rx# :[id number] Sodium Chloride 0.9% 1,000 ml @ 92 125 mls/hr IV .Q8H [facility] Rx#: [id number] Sodium Chloride 0.9% 250 ml @ 250 20 mls/hr IV .[id number] [facility] Rx#: [id number] Dextrose 5%-1/2Ns IV Solution 1 1518 ,000 ml @ 175 mls/hr IV .[id number] [facility] Rx#:[id number] HumuLIN R 50 UNIT In Sodium 33 Chloride 0.9% 99.5 ml @ 7 UNIT/ HR 14 mls/hr IV DUR [facility] Rx#: [id number] Oral 1780 240 Output: Urine Catheter Amount 1445 1750 1127 Void Amount 105 Other: Urine Appearance Clear Clear Clear Uretheral (Mcknight) Clear Clear Clear Urine Color Pale Yellow Bright Yellow Pale Uretheral (Mcknight) Yellow Yellow Yellow Pale Pale Pale Urine Odor Normal Normal Uretheral (Mcknight) Normal Normal Stool Size Small Stool Color Brown Stool Consistency Soft Weight 68.81 kg 70.987 kg Pertinent ROS: Vision yesterday was noted to be poor as he could not place his drinking cup on the table but kept missing by a good 1/2 a foot - probable nothing acute as I'm sure he has advanced diabetic retinopathy. Additional PMFSH (Level 3 Only): Forgot to mention binge drinking. Constitutional Vitals: Vital Signs Temp Pulse Resp BP Pulse Ox O2 Del Method O2 Flow Rate 36.3 C 66 22 148/74 100 2 07/25/22 11:01 07/25/22 10:01 07/25/22 11:01 07/25/22 11:01 07/25/22 11:01 07/25/22 09:14 07/25/22 09:14 Period Temp Pulse Resp BP Sys/Menard Pulse Ox O2 Del Method O2 Flow Rate Last 24 Hr 36.3 C-37.6 C 58-78 12-28 148-192/74-133 88-100 Oxymask-Room Air 2-98 Intake and Output 07/24/22 07/25/22 07/25/22 19:59 03:59 11:59 Intake Total 3423 240 1250 Output Total 1445 1750 1232 Balance 1977 18 Weight 68.81 kg 70.987 kg Intake & Output: Intake & Output 07/24/22 07/25/22 07/25/22 19:59 03:59 11:59 Intake Total 3423 240 1250 Output Total 1445 1750 1232 Balance 1977 18 Weight 68.81 kg 70.987 kg Intake: IV 1643 1250 Sodium Chloride 0.45% 1,000 ml 1000 @ 75 mls/hr IV .[id number] [facility] Rx# :[id number] Sodium Chloride 0.9% 1,000 ml @ 92 125 mls/hr IV .Q8H [facility] Rx#: [id number] Sodium Chloride 0.9% 250 ml @ 250 20 mls/hr IV .[id number] [facility] Rx#: [id number] Dextrose 5%-1/2Ns IV Solution 1 1518 ,000 ml @ 175 mls/hr IV .[id number] [facility] Rx#:[id number] HumuLIN R 50 UNIT In Sodium 33 Chloride 0.9% 99.5 ml @ 7 UNIT/ HR 14 mls/hr IV DUR [facility] Rx#: [id number] Oral 1780 240 Output: Urine Catheter Amount 1445 1750 1127 Void Amount 105 Other: Urine Appearance Clear Clear Clear Uretheral (Mcknight) Clear Clear Clear Urine Color Pale Yellow Bright Yellow Pale Uretheral (Mcknight) Yellow Yellow Yellow Pale Pale Pale Urine Odor Normal Normal Uretheral (Mcknight) Normal Normal Stool Size Small Stool Color Brown Stool Consistency Soft General appearance: thin Exam: encephalopathic Head Head exam: Present normocephalic Eye Eye exam: Present PERRL Pupils: Present mydriatic ENT ENT exam: Present mucous membranes dry Respiratory Respiratory exam: Present rhonchi Cardiovascular Cardiovascular exam: Present +S1 and +S2 GI/Abdominal GI/Abdominal exam: Present diminished bowel sounds Neurological Exam Neurological exam: Present altered and CN II-XII intact Psychiatric Additional comments: encephalopathic Expanded Psychiatric Exam Focused psych exam: Present restlessness Skin Skin exam: Present dry A/P Assessment and plan (1) Toxic metabolic encephalopathy: Assessment and plan: . Status: Acute Comment: Head CT and Tox screen negative. Pupils dilated but had on a scopolamine path. 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 This would be futile unless he can prevent the N/V DKA and stop illicit drug use. Compliance will also be and major stumbling block to survival with HD (3) Binge eating disorder: Status: Chronic Comment: Mother reports this behavior. Obvious psychological attempt for control in a patient who has no control of his DM and soon ESRD. Needs CBT and psychological support. (4) Tetrahydrocannabinol (THC) use disorder, moderate, dependence: Status: Chronic Comment: Every UDS is (+) THC Needs help - not to be enabled THC is the cause of his N/V, not "gastroparesis" otherwise why does he get better in the hospital as the only thing that's different is inability to access THC products, not that his gastroparesis has miraculously gone away (5) Intractable cyclical vomiting with nausea: Status: Acute Comment: As above. I remain suspecious of cyclic vomiting from THC use > DM gastroparesis Tie-breaking nuclear med gastric emptying time as outpatient Has GI motility specialist in [place] (6) Renal failure (ARF), acute on chronic: Status: Acute Comment: Established pattern on N/V dehydration and AFR. Underlying T2DM with nephropathy. Losing additional nephron mass with each cycle of dehydration and pre renal insult to someone who already has decreased nephron mass from diabetes. (7) Acid-base disorder, mixed: Status: Acute Comment: Hypochloremic (chloride sensitive) metabolic alkalosis from gastic acid loss and a volume contraction related metabolic alkalosis, respiratory alkalosis. Hidden in this is an Anion Gap metabolic acidosis due to DKA Plan Hold Rx for BP < 110 mmHg or HR < 65 beats/min Head CT removed. Further lab testing Time Spent With Patient Time: Total time spent is greater than 50% in coordination of care (as documented) at patient's floor/unit and/or counseling patient: Spoke for mother and hospital medicine MD. Total time spent with greater than 50% in coordination of care (as documented) at patient's floor/unit and/or counseling patient:: 35 - 50 minutes
--- NOTE | 2022-07-25 13:46 | Cat Scan Report ---
CLINICAL INFORMATION: Altered mental status COMPARISON: 06/04/2022 TECHNIQUE: 2.5 mm helical slices were obtained in the skull base to vertex. Following reconstruction, axial reformatted images were reviewed at bone and parenchymal windows. The exam was performed using radiation dose optimization techniques including, but not limited to, automated exposure control, adjustment of the mA and/or kV according to patient size and use of iterative reconstruction technique. FINDINGS: The ventricles, sulci, fissures, and cisterns are normal in size and configuration. No extra-axial fluid collections are identified. The cerebrum, brainstem and cerebellum are unremarkable. There is no evidence of hemorrhage, mass effect, or edema. Bone windows show no osseous abnormality. IMPRESSION: Normal head CT without contrast. Interpreted and Authenticated by: Demetrius Smart 07/25/22
[2022-07-25] MEDS: MIRTAZAPINE 15 MG TABLET PO SCH (20:28)
[2022-07-25] MEDS: MELATONIN 3 MG TABLET PO SCH (20:28)
[2022-07-25] MEDS: FAMOTIDINE/PF 20 MG/2 ML VIAL IV SCH (20:28)
[2022-07-25] MEDS ORDERED: diphenhydrAMINE 25 MG CAPSULE PO SCH (21:00)
[2022-07-25] MEDS: diphenhydrAMINE 25 MG CAPSULE PO PRN ×2 (22:04→22:05)
[2022-07-25] MEDS: ACETAMINOPHEN 325 MG TABLET PO PRN (22:41)
[2022-07-25 23:41] LABS: Hematocrit 34.6 % (40.1-51.0); Hemoglobin 10.3 g/dL (13.7-17.5); Mean Cell Volume 90.1 fL (80.0-100.0); Mean Corpuscular HGB Conc 29.8 g/dL (31.0-36.0); Mean Platelet Volume 10.7 fL (8.8-12.5); Platelet Count 213 K/mcL (140-440); RBC 3.84 M/mcL (4.63-6.08); Red Cell Distribution Width 15.5 % (11.5-14.5); WBC 7.5 K/mcL (4.5-11.0)
[2022-07-25 23:55] LABS: Anisocytosis 1+ (None Seen); Basophils % (Manual) 3 % (0-2); Hypochromasia 2+ (None Seen); Lymphocytes % 16 % (15-49); Monocytes % (Manual) 7 % (1-12); Platelet Estimate NORMAL (Normal); RBC Morphology ABNORMAL (Normal); Segmented Neutrophils % 74 % (38-78)
[2022-07-26] MEDS: INSULIN LISPRO 1 UNIT/0.01 ML UNIT SQ SCH ×3 (00:06→06:45)
[2022-07-26] MEDS ORDERED: HALOPERIDOL LACTATE 5 MG/ML VIAL IV ONE (01:12)
[2022-07-26] MEDS ORDERED: HALOPERIDOL LACTATE 5 MG/ML VIAL ONE (01:14)
[2022-07-26] MEDS: LABETALOL 5 MG/ML ML IV PRN ×2 (01:50→04:02)
[2022-07-26] MEDS: LORazepam 2 MG/ML VIAL IV PRN (03:28)
[2022-07-26 06:21] LABS: ABG Methemoglobin 0 % (0.4-1.5); Total Hemoglobin 10.7 gm/Dl (13.5-16.5); VBG Base Excess 6 (-2-3); VBG HCO3 28.9 mmol/L (24.0-28.0); VBG PCO2 36.9 mmHg (41.0-51.0); VBG PH 7.51 U (7.32-7.42)
[2022-07-26] MEDS: 0.9 % SODIUM CHLORIDE 10 ML SYRINGE IV SCH ×4 (06:33→20:28)
[2022-07-26] MEDS: DILTIAZEM 30 MG TABLET PO SCH ×3 (06:33→23:05)
[2022-07-26 06:57] LABS: Beta Hydroxybutyrate 0.19 mmol/L (<0.27)
[2022-07-26 07:08] LABS: ALT/SGPT 9 U/L (<40); AST/SGOT 10 U/L (<40); Albumin 3.5 gm/dL (3.2-5.2); Albumin/Globulin Ratio 1.3 (1.0-2.3); Alkaline Phosphatase 119 U/L (39-117); Bilirubin,Direct < 0.2 mg/dL (0-0.3); Bilirubin,Total 0.2 mg/dL (0.1-1.0); Blood Urea Nitrogen 51 mg/dL (6-20); Carbon Dioxide 29 mmol/L (22-30); Chloride 101 mmol/L (96-108); Globulin 2.8 gm/dL (2.2-3.7); Glomerular Filtration Rate 19; Glucose 89 mg/dL (70-105); Lactate Dehydrogenase 187 U/L (135-225); Phosphorous 2.6 mg/dL (2.5-4.5); Triglycerides 178 mg/dL (<150)
--- NOTE | 2022-07-26 07:35 | Nephrology Progress Note ---
SUBJECTIVE Subjective Patient information: Note initiated : 07/26/22 at 7:34 am Service Date, if different from initiated Date: [] Patient: Mauri Levine 36 y/o M admitted on 07/23/22 for Gastroparesis. Chief Complaint: [N/V] Principal diagnosis: DKA, THC hyperemesis, ARF on CKD 4, Triple acid/base disorder, Electrolyte Interval history: Patient was seen and evaluated on morning rounds. He is back to his baseline level of mentation. Interestingly, his initial tox screen was negative but is now positive for marijuana. Either he had used an [id number] product to mask a potential urine test that he knew was coming, or he was able to obtain THC products such as edible while here in the hospital. At any rate his DKA has resolved but he still has a mixed metabolic alkalosis and respiratory alkalosis. Mother and patient are in agreement for placement as he cannot care for himself and neither can his mother. Psychosocial issues abound and I would favor psychotherapy and behavioral modification. He has a sister in the [facility] area and this could be an area explored for custodial placement and he also has a geriatric social work professor assigned to him from the Medicaid system that could help in placement as well. Vital Signs Temp Pulse Pulse Resp BP Pulse Ox O2 Del Method 07/26/22 07:14 Room Air 07/26/22 07:01 37.6 C H 63 25 H 188/97 98 Room Air 07/26/22 06:53 37.6 C H 63 18 98 07/26/22 06:01 37.5 C H 64 18 175/95 100 07/26/22 00:10 63 100 Room Air 07/25/22 20:13 66 94 Room Air 07/26/22 05:59 37.5 C H 60 26 H 98 07/26/22 05:01 37.3 C H 59 L 25 H 156/85 100 07/26/22 04:54 37.3 C H 58 L 24 H 148/83 99 07/26/22 04:01 37.3 C H 62 18 184/96 98 07/26/22 03:01 37.3 C H 61 22 161/131 100 07/26/22 02:01 37.2 C 59 L 25 H 174/102 98 07/26/22 01:01 36.2 C 61 29 H 159/79 98 07/26/22 00:01 36.9 C 60 27 H 163/92 98 07/25/22 23:01 36.7 C 59 L 17 182/101 99 07/25/22 22:03 36.4 C 66 28 H 202/104 99 07/25/22 22:01 36.4 C 66 22 194/105 99 07/25/22 21:01 36.8 C 65 17 159/109 97 07/25/22 20:01 36.7 C 62 17 134/114 98 07/25/22 19:01 36.7 C 58 L 21 144/78 97 07/25/22 20:34 Oxymask 07/25/22 18:01 36.7 C 58 L 12 150/84 100 07/25/22 17:01 36.7 C 57 L 21 130/75 98 07/25/22 14:12 17 Room Air 07/25/22 16:01 36.8 C 61 18 130/72 100 Oxymask 07/25/22 15:33 36.8 C 59 L 21 100 07/25/22 15:01 36.9 C 62 20 140/117 98 07/25/22 14:00 25 H 100 Oxymask 07/25/22 14:01 36.7 C 71 22 177/94 100 07/25/22 13:01 36.4 C 62 23 H 160/83 99 07/25/22 12:01 36.4 C 61 23 H 158/77 100 07/25/22 11:01 36.3 C 22 148/74 100 07/25/22 10:01 36.6 C 66 24 H 151/78 100 07/25/22 09:01 37.2 C 63 24 H 169/77 100 07/25/22 08:46 37.3 C H 63 13 169/92 88 L 07/25/22 09:14 23 H 100 Oxymask 07/25/22 08:01 37.6 C H 64 19 169/92 98 07/25/22 07:51 37.6 C H 60 14 167/81 98 Intake and Output 07/25/22 07/26/22 07/26/22 19:59 03:59 11:59 Intake Total 0 1440 0 Output Total 1278 1150 275 Balance -1278 290 -275 Intake: IV 0 HumuLIN R 50 UNIT In Sodium 0 Chloride 0.9% 99.5 ml @ 7 UNIT/ HR 14 mls/hr IV DUR [facility] Rx#: [id number] Oral 0 1440 Output: Urine Catheter Amount 1278 1150 170 Void Amount 105 Other: Meal Dinner Percent of Meal Consumed 50% Urine Appearance Clear Clear Clear Uretheral (Mcknight) Clear Clear Urine Color Yellow Yellow Pale Pale Pale Uretheral (Mcknight) Yellow Yellow Bright Yellow Pale Urine Odor Normal Weight 70.216 kg Pertinent ROS: More alert Additional PMFSH (Level 3 Only): N/A Constitutional Vitals: Vital Signs Temp Pulse Resp BP Pulse Ox O2 Del Method O2 Flow Rate 37.6 C H 63 25 H 188/97 98 2 07/26/22 07:01 07/26/22 07:01 07/26/22 07:01 07/26/22 07:01 07/26/22 07:01 07/26/22 07:14 07/25/22 20:34 Period Temp Pulse Resp BP Sys/Menard Pulse Ox O2 Del Method O2 Flow Rate Last 24 Hr 36.2 C-37.6 C 57-71 12-29 130-202/72-131 88-100 Oxymask-Room Air 2-2 Intake and Output 07/25/22 07/26/22 07/26/22 19:59 03:59 11:59 Intake Total 0 1440 0 Output Total 1278 1150 275 Balance -1278 290 -275 Weight 70.216 kg Intake & Output: Intake & Output 07/25/22 07/26/22 07/26/22 19:59 03:59 11:59 Intake Total 0 1440 0 Output Total 1278 1150 275 Balance -1278 290 -275 Weight 70.216 kg Intake: IV 0 HumuLIN R 50 UNIT In Sodium 0 Chloride 0.9% 99.5 ml @ 7 UNIT/ HR 14 mls/hr IV DUR [facility] Rx#: [id number] Oral 0 1440 Output: Urine Catheter Amount 1278 1150 170 Void Amount 105 Other: Meal Dinner Percent of Meal Consumed 50% Urine Appearance Clear Clear Clear Uretheral (Mcknight) Clear Clear Urine Color Yellow Yellow Pale Pale Pale Uretheral (Mcknight) Yellow Yellow Bright Yellow Pale Urine Odor Normal General appearance: no acute distress and thin Exam: Mental status back to normal Head Head exam: Present normal inspection Eye Eye exam: Present EOMI; Absent nystagmus Pupils: Present PERRL; Absent mydriatic ENT ENT exam: Present mucous membranes dry Neck Neck exam: Absent meningismus Respiratory Respiratory exam: Present CTAB Cardiovascular Cardiovascular exam: Present normal rate and rhythm, +S1 and +S2 GI/Abdominal GI/Abdominal exam: Absent guarding or rebound Expanded Abdominal Exam GI/Abdominal exam: Absent ascites Extremities Exam Extremities exam: Absent pedal edema Neurological Exam Neurological exam: Present CN II-XII intact and oriented X3 Additional comments: Encephalopathy over the past 48 hours has resolved Suspect related to THC /See serial urine toxicology reports Expanded Psychiatric Exam Focused psych exam: Present delusional and loose associations Skin Skin exam: Present dry; Absent petechiae or rash A/P Assessment and plan (1) Toxic metabolic encephalopathy: Status: Acute Comment: Head CT and Tox screen negative. Pupils dilated but had on a scopolamine path. Etiologies include toxins and drugs, alkalosis, sepsis, hepatic, or rapid decrease in glucose the increase in ICP due to idiogenic osmoles generated to keep RECONCILIATION MACHINE OPERATOR from intracellular H2O loss with hyperglycemia and rapid correction 07/26/2022 => Surreptitious THC use...neg on admission, positive Tuesday with encephalopathy/hallucinations starting Satuday (2) Mental health problem: Status: Chronic Comment: To continue to blame his maladies on Gastroparesis is ridiculous. Yes he has T1DM but he has an involved mother and state of the art CGM and Insulin Pump. Over the past year I had to observe and try to care for this patient. He is hospitalized more than qMo and has jacquelin eating behavior, almost constant THC use that I feel trigger a cyclic vomiting syndrome. 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 At a minimum he needs counseling and Cognitive Behavioral Therapy. Mom and patient would probably help (3) Diabetic keto-acidosis: Status: Acute Comment: Resolved at 72 hours (4) CKD stage 4 due to type 1 diabetes mellitus: Status: Acute Comment: Every episode of hyperglycemia, DKA, dehydration brings him closer to renal replacement therapy. This would be futile unless he can prevent the N/V DKA and stop illicit drug use. Compliance will also be and major stumbling block to survival with HD (5) Tetrahydrocannabinol (THC) use disorder, moderate, dependence: Status: Chronic Comment: Every UDS is (+) THC Needs help - not to be enabled THC is the cause of his N/V, not "gastroparesis" otherwise why does he get better in the hospital as the only thing that's different is inability to access THC products, not that his gastroparesis has miraculously gone away (6) Intractable cyclical vomiting with nausea: Status: Acute Comment: As above. I remain suspecious of cyclic vomiting from THC use > DM gastroparesis Tie-breaking nuclear med gastric emptying time as outpatient Has GI motility specialist in [place] (7) Renal failure (ARF), acute on chronic: Status: Acute Comment: Established pattern on N/V dehydration and AFR. Underlying T2DM with nephropathy. Losing additional nephron mass with each cycle of dehydration and pre renal insult to someone who already has decreased nephron mass from diabetes. (8) DKA, type 1, not at goal: Status: Acute Comment: The anion gap is present but "hidden" by the huge metabolic and respiratory alkalosis. (9) Metabolic acidosis with respiratory alkalosis: Status: Acute Comment: As above 07/26/2022...DKA resolved but now has combined metabolic and respiratory alkalosis (10) Hypertension, essential: Status: Chronic Comment: labile due to unpredictable Rx absorption with gastroparesis and propensity for dehydration Hold captopril if persistent vomiting occurs or bp less than 120/80 stop coreg and nifedipine Continue clonidine patch#1 Labetalol IV PRN (11) Controlled type 1 diabetes mellitus with chronic kidney disease: Status: Chronic Comment: Ketosis prone but doing better with CGM and insulin pump. I feel he sabotages his own care Qualifiers: Chronic kidney disease stage: stage 3 (moderate) Qualified Code(s): E10.22 - Type 1 diabetes mellitus with diabetic chronic kidney disease; N18.30 - Chronic kidney disease, stage 3 unspecified Narrative A/P Narrative: As above referral SW for placement Time Spent With Patient Time: Total time spent is greater than 50% in coordination of care (as documented) at patient's floor/unit and/or counseling patient:
[2022-07-26 07:47] LABS: Amphetamine Screen,Urine None detected; Barbiturate Screen,Urine None detected; Benzodiazepines Screen,Urine None detected; Cannabinoid Screen,Urine Suspect Positive; Cocaine Screen,Urine None detected; Opiate Screen,Urine None detected; Oxycodone, Urine Screen None detected; Phencyclidine Screen,Urine None detected
[2022-07-26] MEDS: CARVEDILOL 6.25 MG TABLET PO SCH ×2 (08:25→20:26)
[2022-07-26] MEDS: FLUoxetine HCL 20 MG CAPSULE PO SCH (08:25)
[2022-07-26] MEDS: VENLAFAXINE 75 MG CAP.XL.24H PO SCH (08:25)
[2022-07-26] MEDS: HEPARIN 5,000 UNIT/ML VIAL SQ SCH ×2 (08:25→20:28)
--- NOTE | 2022-07-26 11:00 | Internal Med Progress Note ---
SUBJECTIVE Subjective Patient information: Note initiated : 07/26/22 at 10:59 am Service Date, if different from initiated Date: [] Patient: Mauri Levine 36 y/o M admitted on 07/23/22 for Gastroparesis. Chief Complaint: [Hyperglycemia, AMS] Principal diagnosis: DKA, THC hyperemesis, ARF on CKD 4, Triple acid/base disorder, Electrolyte Interval history: The patient was resting comfortably in bed. He was pleasant, calm and cooperative. He was able to carry a full conversation. Discussed the case with the RN the patient did require Haldol and Ativan overnight. Constitutional Vitals: Vital Signs Temp Pulse Resp BP Pulse Ox O2 Del Method O2 Flow Rate 99.4 F H 68 25 H 118/70 100 2 07/26/22 09:01 07/26/22 10:03 07/26/22 10:03 07/26/22 10:03 07/26/22 10:03 07/26/22 09:01 07/25/22 20:34 Period Temp Pulse Resp BP Sys/Menard Pulse Ox O2 Del Method O2 Flow Rate Last 24 Hr 97.2 F-99.6 F 57-71 12-29 118-202/70-131 94-100 Oxymask-Room Air 2-2 Intake and Output 07/25/22 07/26/22 07/26/22 19:59 03:59 11:59 Intake Total 0 1440 120 Output Total 1278 1150 875 Balance -1278 290 -755 Weight 70.216 kg Intake & Output: Intake & Output 07/25/22 07/26/22 07/26/22 19:59 03:59 11:59 Intake Total 0 1440 120 Output Total 1278 1150 875 Balance -1278 290 -755 Weight 70.216 kg Intake: IV 0 HumuLIN R 50 UNIT In Sodium 0 Chloride 0.9% 99.5 ml @ 7 UNIT/ HR 14 mls/hr IV DUR KOKO Rx#: [id number] Oral 0 1440 120 Output: Urine Catheter Amount 1278 1150 670 Void Amount 205 Other: Meal Dinner Breakfast Percent of Meal Consumed 50% 100% Urine Appearance Clear Clear Clear Uretheral (Mcknight) Clear Clear Urine Color Yellow Yellow Pale Pale Pale Uretheral (Mcknight) Yellow Yellow Bright Yellow Pale Urine Odor Normal Head Head exam: Present atraumatic and normal inspection Eye Eye exam: Present normal appearance ENT ENT exam: Present mucous membranes moist, normal exam and normal external ear exam Neck Neck exam: Present normal inspection Respiratory Respiratory exam: Present normal respiratory exam Cardiovascular Cardiovascular exam: Present normal rate and rhythm GI/Abdominal GI/Abdominal exam: Present normal bowel sounds Back Exam Back exam: Present normal inspection Neurological Exam Neurological exam: Present alert and oriented X3 Skin Skin exam: Present intact and warm OBJ DATA Labs CBC & Chem 7: 07/25/22 22:56 07/26/22 05:57 Labs: Abnormal Lab Results 07/26/22 07/26/22 07/26/22 06:20 05:57 05:57 WBC RBC Hgb Hct POC Hct MCHC RDW Neut % (Auto) Lymph % (Auto) [place] % (Auto) Lymph # (Auto) [place] # (Auto) Seg Neutrophils % Lymphocytes % Basophils % (Manual) Immature Gran # Absolute Neutrophils RBC Morphology Hypochromasia Anisocytosis D-Dimer ABG Methemoglobin 0 L VBG pH 7.51 H VBG pCO2 36.9 L VBG pO2 140.0 H VBG HCO3 28.9 H VBG Total CO2 30.0 H VBG O2 Saturation 92.0 H VBG Base Excess 6 H Carboxyhemoglobin 6.2 H Total Hemoglobin 10.7 L POC Sodium Sodium POC Potassium Potassium POC Chloride Chloride Carbon Dioxide POC Total CO2 Anion Gap POC BUN BUN Creatinine POC Creatinine Glucose POC Glucose Osmolality 304 H Uric Acid Calcium POC WB Ioniz Calcium Phosphorus Magnesium 3.1 H Alkaline Phosphatase Lactate Dehydrogenase Total Protein Triglycerides Lipase Beta-Hydroxybutyrate Urine Protein Urine Glucose (UA) Urine Ketones U Marijuana (THC) Screen Suspect positive A 07/26/22 07/25/22 07/25/22 05:57 22:56 05:10 WBC RBC 3.84 L Hgb 10.3 L Hct 34.6 L POC Hct MCHC 29.8 L RDW 15.5 H Neut % (Auto) Lymph % (Auto) [place] % (Auto) Lymph # (Auto) [place] # (Auto) Seg Neutrophils % Lymphocytes % Basophils % (Manual) 3 H Immature Gran # Absolute Neutrophils RBC Morphology Abnormal A Hypochromasia 2+ A Anisocytosis 1+ A D-Dimer ABG Methemoglobin VBG pH VBG pCO2 VBG pO2 VBG HCO3 VBG Total CO2 VBG O2 Saturation VBG Base Excess Carboxyhemoglobin Total Hemoglobin POC Sodium Sodium POC Potassium Potassium POC Chloride Chloride Carbon Dioxide POC Total CO2 Anion Gap 7.0 L POC BUN BUN 51 H Creatinine 3.9 H POC Creatinine Glucose POC Glucose Osmolality Uric Acid Calcium POC WB Ioniz Calcium Phosphorus Magnesium 2.8 H Alkaline Phosphatase 119 H Lactate Dehydrogenase Total Protein Triglycerides 178 H Lipase Beta-Hydroxybutyrate 0.41 H Urine Protein Urine Glucose (UA) Urine Ketones U Marijuana (THC) Screen 07/25/22 07/25/22 07/24/22 05:10 05:10 17:42 WBC RBC 3.15 L Hgb 8.4 L Hct 27.6 L POC Hct MCHC 30.4 L RDW 15.6 H Neut % (Auto) Lymph % (Auto) [place] % (Auto) Lymph # (Auto) [place] # (Auto) Seg Neutrophils % Lymphocytes % Basophils % (Manual) Immature Gran # Absolute Neutrophils RBC Morphology Hypochromasia Anisocytosis D-Dimer ABG Methemoglobin VBG pH VBG pCO2 VBG pO2 VBG HCO3 VBG Total CO2 VBG O2 Saturation VBG Base Excess Carboxyhemoglobin Total Hemoglobin POC Sodium Sodium POC Potassium Potassium 3.1 L POC Chloride Chloride 93 L Carbon Dioxide 35 H POC Total CO2 Anion Gap POC BUN BUN 55 H 61 H Creatinine 4.3 H 4.3 H POC Creatinine Glucose 188 H 131 H POC Glucose Osmolality Uric Acid Calcium 8.5 L POC WB Ioniz Calcium Phosphorus Magnesium 3.2 H Alkaline Phosphatase Lactate Dehydrogenase Total Protein 5.8 L Triglycerides 152 H Lipase Beta-Hydroxybutyrate Urine Protein Urine Glucose (UA) Urine Ketones U Marijuana (THC) Screen 07/24/22 07/24/22 07/24/22 17:42 13:13 05:26 WBC RBC Hgb Hct POC Hct MCHC RDW Neut % (Auto) Lymph % (Auto) [place] % (Auto) Lymph # (Auto) [place] # (Auto) Seg Neutrophils % 82 H Lymphocytes % 12 L Basophils % (Manual) Immature Gran # Absolute Neutrophils RBC Morphology Abnormal A Hypochromasia Anisocytosis 1+ A D-Dimer 2.56 H ABG Methemoglobin 0.3 L VBG pH 7.55 H VBG pCO2 36.6 L VBG pO2 114.2 H VBG HCO3 31.4 H VBG Total CO2 32.6 H VBG O2 Saturation 87.7 H VBG Base Excess 9 H Carboxyhemoglobin 9.8 H Total Hemoglobin 9.9 L POC Sodium Sodium POC Potassium Potassium POC Chloride Chloride Carbon Dioxide POC Total CO2 Anion Gap POC BUN BUN Creatinine POC Creatinine Glucose POC Glucose Osmolality Uric Acid Calcium POC WB Ioniz Calcium Phosphorus Magnesium Alkaline Phosphatase Lactate Dehydrogenase Total Protein Triglycerides Lipase Beta-Hydroxybutyrate Urine Protein Urine Glucose (UA) Urine Ketones U Marijuana (THC) Screen 07/24/22 07/24/22 07/24/22 05:26 05:16 05:16 WBC 15.8 H RBC 3.52 L Hgb 9.5 L Hct 29.6 L POC Hct 31.0 L MCHC RDW 15.6 H Neut % (Auto) 79.5 H Lymph % (Auto) 7.8 L [place] % (Auto) 12.1 H Lymph # (Auto) 1.23 L [place] # (Auto) 1.91 H Seg Neutrophils % Lymphocytes % Basophils % (Manual) Immature Gran # 0.08 H Absolute Neutrophils 12.60 H RBC Morphology Hypochromasia Anisocytosis D-Dimer ABG Methemoglobin VBG pH VBG pCO2 VBG pO2 VBG HCO3 VBG Total CO2 VBG O2 Saturation VBG Base Excess Carboxyhemoglobin Total Hemoglobin POC Sodium Sodium POC Potassium Potassium POC Chloride 83 L Chloride 86 L Carbon Dioxide 38 H POC Total CO2 42.0 H Anion Gap POC BUN 81 H BUN 79 H Creatinine 5.1 H* POC Creatinine 5.4 H* Glucose 598 H* POC Glucose 629 H* Osmolality Uric Acid 11.0 H Calcium 7.6 L POC WB Ioniz Calcium 0.89 L Phosphorus 8.3 H* Magnesium 4.3 H* Alkaline Phosphatase 142 H Lactate Dehydrogenase 248 H Total Protein Triglycerides 205 H Lipase Beta-Hydroxybutyrate Urine Protein Urine Glucose (UA) Urine Ketones U Marijuana (THC) Screen 07/24/22 07/24/22 07/24/22 05:00 03:14 03:10 WBC RBC Hgb Hct POC Hct 32.0 L MCHC RDW Neut % (Auto) Lymph % (Auto) [place] % (Auto) Lymph # (Auto) [place] # (Auto) Seg Neutrophils % Lymphocytes % Basophils % (Manual) Immature Gran # Absolute Neutrophils RBC Morphology Hypochromasia Anisocytosis D-Dimer ABG Methemoglobin VBG pH VBG pCO2 VBG pO2 VBG HCO3 VBG Total CO2 VBG O2 Saturation VBG Base Excess Carboxyhemoglobin Total Hemoglobin POC Sodium 132 L Sodium POC Potassium Potassium POC Chloride 83 L Chloride Carbon Dioxide POC Total CO2 37.0 H Anion Gap POC BUN 81 H BUN Creatinine POC Creatinine 5.7 H* Glucose 766 H* POC Glucose > 700 H* Osmolality Uric Acid Calcium POC WB Ioniz Calcium 0.80 L Phosphorus Magnesium Alkaline Phosphatase Lactate Dehydrogenase Total Protein Triglycerides Lipase Beta-Hydroxybutyrate 4.11 H Urine Protein Urine Glucose (UA) Urine Ketones U Marijuana (THC) Screen 07/24/22 07/24/22 07/23/22 02:02 01:16 23:32 WBC RBC Hgb Hct POC Hct 32.0 L 33.0 L 34.0 L MCHC RDW Neut % (Auto) Lymph % (Auto) [place] % (Auto) Lymph # (Auto) [place] # (Auto) Seg Neutrophils % Lymphocytes % Basophils % (Manual) Immature Gran # Absolute Neutrophils RBC Morphology Hypochromasia Anisocytosis D-Dimer ABG Methemoglobin VBG pH VBG pCO2 VBG pO2 VBG HCO3 VBG Total CO2 VBG O2 Saturation VBG Base Excess Carboxyhemoglobin Total Hemoglobin POC Sodium 131 L Sodium POC Potassium 3.0 L Potassium POC Chloride 81 L 80 L 80 L Chloride Carbon Dioxide POC Total CO2 39.0 H 39.0 H 35.0 H Anion Gap POC BUN 83 H 80 H 74 H BUN Creatinine POC Creatinine 5.4 H* 5.6 H* 5.9 H* Glucose POC Glucose > 700 H* > 700 H* > 700 H* Osmolality Uric Acid Calcium POC WB Ioniz Calcium 0.85 L 0.83 L 0.68 L* Phosphorus Magnesium Alkaline Phosphatase Lactate Dehydrogenase Total Protein Triglycerides Lipase Beta-Hydroxybutyrate Urine Protein Urine Glucose (UA) Urine Ketones U Marijuana (THC) Screen 07/23/22 07/23/22 07/23/22 21:53 21:05 21:05 WBC RBC Hgb Hct POC Hct 34.0 L MCHC RDW Neut % (Auto) Lymph % (Auto) [place] % (Auto) Lymph # (Auto) [place] # (Auto) Seg Neutrophils % Lymphocytes % Basophils % (Manual) Immature Gran # Absolute Neutrophils RBC Morphology Hypochromasia Anisocytosis D-Dimer ABG Methemoglobin VBG pH VBG pCO2 VBG pO2 VBG HCO3 VBG Total CO2 VBG O2 Saturation VBG Base Excess Carboxyhemoglobin Total Hemoglobin POC Sodium 132 L Sodium POC Potassium 2.8 L* Potassium 2.8 L* POC Chloride 78 L Chloride 73 L Carbon Dioxide 36 H POC Total CO2 36.0 H Anion Gap 26.0 H POC BUN 70 H BUN 87 H Creatinine 5.2 H* POC Creatinine 6.2 H* Glucose 690 H* POC Glucose > 700 H* Osmolality Uric Acid Calcium 7.3 L POC WB Ioniz Calcium 0.75 L Phosphorus Magnesium 4.2 H* Alkaline Phosphatase Lactate Dehydrogenase Total Protein Triglycerides Lipase Beta-Hydroxybutyrate 8.41 H Urine Protein Urine Glucose (UA) Urine Ketones U Marijuana (THC) Screen 07/23/22 07/23/22 07/23/22 18:50 11:04 11:04 WBC RBC Hgb Hct POC Hct MCHC RDW Neut % (Auto) Lymph % (Auto) [place] % (Auto) Lymph # (Auto) [place] # (Auto) Seg Neutrophils % Lymphocytes % Basophils % (Manual) Immature Gran # Absolute Neutrophils RBC Morphology Hypochromasia Anisocytosis D-Dimer ABG Methemoglobin VBG pH VBG pCO2 VBG pO2 VBG HCO3 VBG Total CO2 VBG O2 Saturation VBG Base Excess Carboxyhemoglobin Total Hemoglobin POC Sodium Sodium POC Potassium Potassium POC Chloride Chloride Carbon Dioxide POC Total CO2 Anion Gap POC BUN BUN Creatinine POC Creatinine Glucose POC Glucose Osmolality 381 H Uric Acid Calcium POC WB Ioniz Calcium Phosphorus Magnesium Alkaline Phosphatase Lactate Dehydrogenase Total Protein Triglycerides Lipase Beta-Hydroxybutyrate 9.80 H Urine Protein 100 A Urine Glucose (UA) >=500 A Urine Ketones 20 A U Marijuana (THC) Screen 07/23/22 07/23/22 07/23/22 11:01 10:20 10:20 WBC 12.4 H RBC 3.85 L Hgb 10.3 L Hct 31.9 L POC Hct MCHC RDW 15.3 H Neut % (Auto) 82.5 H Lymph % (Auto) 5.2 L [place] % (Auto) Lymph # (Auto) 0.65 L [place] # (Auto) 1.45 H Seg Neutrophils % Lymphocytes % Basophils % (Manual) Immature Gran # Absolute Neutrophils 10.24 H RBC Morphology Hypochromasia Anisocytosis D-Dimer ABG Methemoglobin VBG pH VBG pCO2 VBG pO2 VBG HCO3 VBG Total CO2 VBG O2 Saturation VBG Base Excess Carboxyhemoglobin Total Hemoglobin POC Sodium Sodium 121 L POC Potassium Potassium POC Chloride Chloride < 60 L Carbon Dioxide 39 H POC Total CO2 Anion Gap 22.0 H POC BUN BUN 101 H* Creatinine 5.9 H* POC Creatinine Glucose 1309 H* POC Glucose Osmolality Uric Acid Calcium 7.0 L POC WB Ioniz Calcium Phosphorus Magnesium Alkaline Phosphatase 165 H Lactate Dehydrogenase Total Protein Triglycerides Lipase 192 H Beta-Hydroxybutyrate Urine Protein Urine Glucose (UA) Urine Ketones U Marijuana (THC) Screen Meds: Medications Acetaminophen (Acetaminophen 325 Mg Tablet) 650 mg PO Q6HP PRN; Protocol PRN Reason: Per Pain Protocol/Fever > 101 Last Admin: 07/25/22 22:41 Dose: 650 mg Albuterol/Ipratropium (Ipratropium/Albuterol 3 Ml Ampul.Neb) 3 ml NEB Q4HP PRN PRN Reason: Shortness Of Breath Carvedilol (Carvedilol 6.25 Mg Tablet) 6.25 mg PO BID [facility] Last Admin: 07/26/22 08:25 Dose: 6.25 mg Clonidine HCl (Clonidine Tts 3 1 Patch Patch) 1 patch TD Fr@1000 [facility] Dextrose (Dextrose 50% 50 Ml Vial) 0 ml IV UD PRN PRN Reason: Per Sliding Scale Diagnostic Test (Pha) (Accu-Chek 1 Each Strip) 1 each FS Q4H [facility] Last Admin: 07/26/22 06:45 Dose: 1 each Diltiazem HCl (Diltiazem 30 Mg Tablet) 60 mg PO Q8 [facility] Last Admin: 07/26/22 06:33 Dose: 60 mg Diphenhydramine HCl (Diphenhydramine 25 Mg Capsule) 25 mg PO HSP PRN PRN Reason: insomnia Last Admin: 07/25/22 22:05 Dose: 25 mg Famotidine (Famotidine/Pf 20 Mg/2 Ml Vial) 20 mg IV HS [facility] Last Admin: 07/25/22 20:28 Dose: 20 mg Fluoxetine HCl (Fluoxetine Hcl 20 Mg Capsule) 20 mg PO QDAY [facility] Last Admin: 07/26/22 08:25 Dose: 20 mg Glucose (Dextrose 31 Gm Oral.Susp) 15 gm PO PRN PRN PRN Reason: Hypoglycemia Heparin Sodium (Porcine) (Heparin 5,000 Unit/Ml Vial) 5,000 unit SQ Q12 [facility] Last Admin: 07/26/22 08:25 Dose: 5,000 unit Hydralazine HCl (Hydralazine 20 Mg/Ml Vial) 0 mg IV Q2HP PRN PRN Reason: Hypertension Potassium Chloride 40 meq/ (Dextrose) 520 mls @ 130 mls/hr IV UD PRN PRN Reason: Potassium < 3 Last Infusion: 07/24/22 04:54 Dose: Infused Magnesium Sulfate (Magnesium Sulfate) 2 gm in 50 mls @ 50 mls/hr IV UD PRN PRN Reason: Magnesium </= 1.6 Insulin Human Lispro (Insulin Lispro 1 Unit/0.01 Ml Unit) 0 unit SQ Q4H [facility]; Protocol Last Admin: 07/26/22 06:45 Dose: Not Given Labetalol HCl (Labetalol 5 Mg/Ml Ml) 0 mg IV Q2HP PRN PRN Reason: Hypertension Last Admin: 07/26/22 04:02 Dose: 20 mg Lorazepam (Lorazepam 2 Mg/Ml Vial) 0.5 mg IV Q8HP PRN PRN Reason: Nausea Anxiety/Sedation Last Admin: 07/26/22 03:28 Dose: 0.5 mg Melatonin ([facility] 3 Mg Tablet) [facility] Last Admin: 07/25/22 20:28 Dose: 3 mg Mirtazapine (Mirtazapine 15 Mg Tablet) 15 mg PO [facility] Last Admin: 07/25/22 20:28 Dose: 15 mg Ondansetron HCl (Ondansetron 4 Mg/2 Ml Vial) 4 mg IV Q4HP PRN PRN Reason: Nausea And Vomiting Last Admin: 07/24/22 23:46 Dose: 4 mg Polyethylene Glycol (Polyethylene Glycol 3350 17 Gm Packet) 17 gm PO DAILYP PRN PRN Reason: Constipation Potassium Chloride (Potassium Chloride 20 Meq Tablet) 40 meq PO UD PRN PRN Reason: Potssium is 3-3.5 Last Admin: 07/25/22 08:22 Dose: 40 meq Potassium Chloride (Potassium Chloride 20 Meq Tablet) 40 meq PO UD PRN PRN Reason: Potassium < 3 Promethazine HCl (Promethazine 25 Mg/Ml Vial) 12.5 mg IV Q6HP PRN PRN Reason: Nausea And Vomiting Last Admin: 07/25/22 20:29 Dose: 12.5 mg Ropinirole HCl (Ropinirole 0.25 Mg Tablet) 0.5 mg PO HSP PRN PRN Reason: restless leg Last Admin: 07/25/22 22:01 Dose: 0.5 mg Senna (Sennosides 1 Tablet) 2 tab PO DAILYP PRN PRN Reason: Constipation Sodium Chloride (0.9 % Sodium Chloride 10 Ml Syringe) 10 ml IV Q8 [facility] Last Admin: 07/26/22 06:33 Dose: 10 ml Venlafaxine HCl (Venlafaxine 75 Mg Cap.Xl.24h) 225 mg PO QAM [facility] Last Admin: 07/26/22 08:25 Dose: 225 mg ABG Interpretation ABG results: 07/24/22 07/26/22 17:42 05:57 ABG Methemoglobin 0.3 L 0 L VBG pH 7.55 H 7.51 H VBG pCO2 36.6 L 36.9 L VBG pO2 114.2 H 140.0 H VBG HCO3 31.4 H 28.9 H VBG Total CO2 32.6 H 30.0 H VBG O2 Saturation 87.7 H 92.0 H VBG Base Excess 9 H 6 H A/P Narrative A/P Narrative: A: *DKA-HHS (h/o DMI with h/o Gastroparesis/Neuropathy): likely triggered by below and likely noncompliance given his history. -BG on admit 1309 *N/V: 2/2 likely marijuana hyperemesis vs cyclic vomiting alone or in conjunction with THC, and h/o gastroparesis *Metabolic Encephalopathy with Delerium: 2/2 above and critical care delerium / sleep deprivation -nurse reports worsening o/n with visual hallucinations *Cannabis use: and likely Cannabis hyperemesis syndrome *ROSALIO on CKD IV: Follows with Dr. Mills -improving *Metabolic alkalosis: 2/2 volume loss and H+ loss from n/v *Volume depletion: improving *Electrolyte d/o (hypokalemia/hypochloremia/Hypermag/Hyperphos): improving *Acute hypoxic respiratory failure: 2/2 suspected aspiration from multiple bouts of emesis -temporarily on O2 during first night, off since. CXR unremarkable *Marijuana use: *Anemia, chronic: *HTN: On coreg/clonidine/captopril *Anxiety/depression/binge eating disorder: on Fluoxetine *Long QT Syndrome: noted on EKG's since 2019. Pt is on SSRI *GERD: *long-term prognosis guarded if he doesn't become more vigilant in caring for his disease P: -icu monitoring -IVF's -insulin gtt off, on ssi, start insulin pump -Monitor electrolytes and replace -Nephrology following -consistent carb diet, low fat -Ct brain-> unrevealing -Antiemetics, d/c scop patch -cont clonidine/BB IV prn BP meds -echo for loud cardiac murmur -f/u with mental health team -ppx: Heparin/H2 Time Spent With Patient Time: Total time spent is greater than 50% in coordination of care (as documented) at patient's floor/unit and/or counseling patient: Total time spent with greater than 50% in coordination of care (as documented) at patient's floor/unit and/or counseling patient:: 25 - 35 minutes QUALITY VTE Deep Vein Thrombosis/Pulmonary Embolism Present on Admission: No
--- NOTE | 2022-07-26 17:19 | Behavioral Health Consult ---
HPI History of Present Illness Patient information: Note initiated : 07/26/22 at 5:18 pm Service Date, if different from initiated Date: [] Patient: Mauri Levine 36 y/o M admitted on 07/23/22 for Gastroparesis. Chief Complaint: [] History of present illness: Name: Mauri TsangOB: 1985 DateandTime: 07/26/2022 7:55:21 PM Location of the patient[facility] IPLocation of the doctor: cheyanne Length of consult: 20 min This evaluation was conducted via video telepsychiatry with the assistance of onsite staff Reason for consult: generalized weakness Requested by: hospitalist History of Present Illness: Mr. Levine is a 36 year old Male was consulted for major depression chronic recurrent severe, major depression due to general medical condition, mood disorder due to general medical condition, and depression due to longstanding diabetes mellitus and other medical problemsPati ent complains of depression hopelessness helplessness decreased sleep decreased energy decreased motivationPatient has several complication of diabetes mellitus including diabetes gastropathy diabetic neuropathy diabetic gastric emptying syndrome.Presents the ED with 3 days of nausea/vomiting. Patient has history of diabetes with DKA and also history of gastroparesis and nausea vomiting frequent the ED and has many hospitalizations. He also uses marijuana this could very well be marijuana hyperemesis. Other consideration could be cyclic vomiting alone or in conjunction with marijuana use. 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 Contraction alkalosis from volume loss and H+ loss from emesis.Patient denies any active suicidal ideation homicidal ideation without psychotic symptomsPatient is currently on the following medications psychiatricprozac 20 mg po dailyeffexor xr 225 mg po dailyremeron 15 mg po qhs Collateral Contacted: YesCollateral name:Biological mother was contacted by the staffCollateral phone number:Collateral relationship to the patient: Sleep issues?: No Psychiatric History/Treatment History: Past diagnoses: Major depression, sleep disorder Hospitalizations: YesDescription:One psychiatric hospitalization when he was in his teenage years for depression Current Treatment:YesMedication management:YesMedications:Prozac 20 mg daily, Effexor XR 225 mg daily arm 15 mg at bedtimeTherapy: Suicide Assessment: PSS-3: 1) Over the past 2 weeks have you felt down, depressed or hopeless?Yes 2) Over the past 2 weeks have you had thoughts of killing yourself?No 3) Have you ever in your life attempted to kill yourself?No Within the past 6 months? [facility] Safety Assessment: Risk Factors Stressors: Multiple medical problems Attempts/Self-injury: YesDescription: Impulsivity:YesDescription: Drug/Alcohol History:No Trauma History:No Access to firearms:No HI/Violence/Property destruction:No Legal: No Family Psych History:No Family History of suicide:No Protective Factors: Can handle stress well?Yes Evangelical?Yes External: Social supports/ Therapeutic relationships: YesDescription: Relationship history: Living situation: Lives with the mother supportive family Employment: No Education: Responsibility to family/children/work: No Future orientation:No Health History: Medical History: Abdominal pain, epigastric Abnormal CT of brain Altered mental status Anxiety Back pain Chronic ulcer of left foot Coffee ground emesis Depression Diabetes mellitus type I Age 12, With foot ulcer Diabetic gastroparesis associated with type 1 diabetes mellitus Diabetic neuropathy associated with type 1 diabetes mellitus Diabetic peripheral neuropathy Diabetic retinopathy associated with type 1 diabetes mellitus DKA, type 1 Esophageal candidiasis Gastroenteritis Gastroparesis due to DM GERD (gastroesophageal reflux disease) Hallux valgus (acquired), left foot Has multiple sexual partners History of neuroleptic malignant syndrome To compazine (prochlorperazine). Tolerates promethazine without issue Hyperlipidemia Hypertension, essential labile due to unpredictable Rx absorption with gastroparesis and propensity for dehydration Hold captopril if persistent vomiting occurs or bp less than 120/80 stop coreg and nifedipine Continue clonidine patch#1 Labetalol IV PRN Hypokalemia Connie-Byrne tear Malnutrition Marijuana use, continuous Nausea and vomiting Non-pressure chronic ulcer of other part of left foot limited to breakdown of skin Other hammer toe(s) (acquired), left foot Peripheral autonomic neuropathy due to DM Physical deconditioning Seizures Sepsis Tardive dyskinesia due to metoclopramide (Reglan) Testosterone deficiency Medications & Freq: Patient is currently on the following psychotic psychotropic medications Prozac 20 mg daily Effexor XR 225 mg daily Remeron 15 mg at bedtime Allergies: As per records Mental Status Exam: Appearance and Attire:Normal Psychomotor agitation:No abnormality Attitude and behavior:Cooperative Speech:No abnormality, Mood:Euthymic Affect:Full range of affect Thought process:Linear Thought content:No abnormality Perception:Within normal limits Intel:Above average Abstract:Appropriate Language:No abnormality Orientation:Oriented x 4 Sense:Normal Knowledge:Appropriate for education and socioeconomic status Memory:Intact Insight:Appropriate Judgement:Appropriate Gait:No abnormality Impression/Risk Assessment: Current Suicide Risk Elevated?No Current Violence Risk Elevated?No Issues with ability to care for self?Yes Summary: 36-year-old male with multiple medical problems including diabetes mellitus was consulted for major depression chronic recurrent severe, general as weakness and, failure to thrive, and generalized weakness Diagnosis: CPT Codes: 35299 - Psychiatric Diagnostic Evaluation with Medical Services Treatment Plan: General: major depression chronic recurrent severe Major depression due to ge neral medical condition Generalized weakness Level of Care: Patient will benefit from transfer to physical therapy and rehab or a custodial facility after medical stabilization at the current hospitalization Psychiatric Clearance: YesDescription:Patient will benefit from transfer to physical therapy and rehab or a custodial facility after medical stabilization at the current hospitalization Observation level 1:1 needed?: No Pharmacological: Continue Prozac 20 mg daily, Effexor XR 225 mg daily, Remeron 15 mg at bedtime Patient psychotic?No Therapy: Supportive Follow up needed while in the hospital?: No Discussed plan with onsite 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 officer: Yes Who A registered nurse miss Tanya RIVERA for this patient today on duty Other: PFSH PFSH All Active Problems (Updated 07/26/22 @ 12:57 by Khari Mills MD) Testosterone deficiency (Chronic) Nausea and vomiting (Chronic) GERD (gastroesophageal reflux disease) (Chronic) Other hammer toe(s) (acquired), left foot (Chronic) Hypertension, essential (Chronic) Hyperlipidemia (Chronic) History of neuroleptic malignant syndrome (Chronic) Dehydration (Chronic) Drug-induced nausea and vomiting (Acute) Uncontrolled type 1 diabetes mellitus with diabetic nephropathy, with long-term current use of insulin (Chronic) Cyclic vomiting syndrome (Chronic) Type 1 diabetes mellitus with stage 3 chronic kidney disease and hypertension (Chronic) Marijuana use, continuous (Chronic) CKD (chronic kidney disease) (Acute) Nephrotic range proteinuria (Chronic) Controlled type 1 diabetes mellitus with chronic kidney disease (Chronic) Port-A-Cath in place (Acute) Diabetic gastroparesis associated with type 1 diabetes mellitus (Chronic) Diabetic neuropathy associated with type 1 diabetes mellitus (Chronic) Diabetic retinopathy associated with type 1 diabetes mellitus (Chronic) Anxiety (Chronic) Back pain (Chronic) Physical deconditioning (Chronic) Malnutrition (Chronic) Acute dehydration (Acute) Acute hypokalemia (Acute) QT prolongation (Acute) Dehydration (Acute) No-show for appointment (Acute) Intractable cyclical vomiting with nausea (Acute) Diabetic gastroparesis (Chronic) ROSALIO (acute kidney injury) (Acute) Hyperglycemia (Acute) Dehydration (Acute) Major depressive disorder, recurrent (Chronic) Generalized anxiety disorder (Chronic) Trauma and stressor-related disorder (Chronic) Diabetic gastroparesis (Acute) Nausea & vomiting (Acute) Acute dehydration (Acute) Ketosis (Acute) Uncontrolled diabetes mellitus (Acute) DKA (diabetic ketoacidosis) (Acute) Hyperosmolar hyperglycemic state (HHS) (Acute) Diabetic gastroparesis (Acute) Metabolic alkalosis (Acute) Stage 2 acute kidney injury (Acute) Hyponatremia (Acute) DKA (diabetic ketoacidosis) (Acute) Has multiple sexual partners (Acute) Hyperosmolar hyperglycemic state (HHS) (Acute) Acute hypokalemia (Acute) ROSALIO (acute kidney injury) (Acute) Nausea & vomiting (Acute) Hypochloremia (Acute) Alkalosis (Acute) Acute renal failure superimposed on stage 3a chronic kidney disease (Acute) Metabolic alkalosis (Acute) Altered mental status (Acute) Depression (Acute) Acute hyperglycemia (Acute) Nausea & vomiting (Acute) Seizures (Acute) Abnormal CT of brain (Acute) Sepsis (Acute) Hyponatremia (Acute) Pneumonia (Acute) Acute renal failure (Acute) Hypokalemia (Acute) Diabetic gastroparesis (Acute) Diabetic gastroparesis (Acute) CKD stage G3b/A3, GFR 30-44 and albumin creatinine ratio >300 mg/g (Acute) Renal failure (ARF), acute on chronic (Acute) ROSALIO (acute kidney injury) (Acute) Acute hypokalemia (Acute) Acidosis (Acute) Acid-base disorder, mixed (Acute) Acute worsening of stage 4 chronic kidney disease (Acute) Type 1 diabetes mellitus with hyperosmolar hyperglycemic state (HHS) (Acute) Acute hypokalemia (Acute) Nausea & vomiting (Acute) Acute respiratory failure with hypoxia (Acute) Type 1 diabetes mellitus with hyperosmolar hyperglycemic state (HHS) (Acute) Anemia associated with stage 4 chronic renal failure (Acute) DKA, type 1, not at goal (Acute) Metabolic acidosis with respiratory alkalosis (Acute) Gastroparesis (Acute) Tetrahydrocannabinol (THC) use disorder, moderate, dependence (Chronic) Binge eating disorder (Chronic) CKD stage 4 due to type 1 diabetes mellitus (Acute) Diabetic keto-acidosis (Acute) Mental health problem (Chronic) Toxic metabolic encephalopathy (Acute) Munchausen syndrome (Acute) Medical History Abdominal pain, epigastric Abnormal CT of brain Altered mental status Anxiety Back pain Chronic ulcer of left foot Coffee ground emesis Depression Diabetes mellitus type I Age 12, With foot ulcer Diabetic gastroparesis associated with type 1 diabetes mellitus Diabetic neuropathy associated with type 1 diabetes mellitus Diabetic peripheral neuropathy Diabetic retinopathy associated with type 1 diabetes mellitus DKA, type 1 Esophageal candidiasis Gastroenteritis Gastroparesis due to DM GERD (gastroesophageal reflux disease) Hallux valgus (acquired), left foot Has multiple sexual partners History of neuroleptic malignant syndrome To compazine (prochlorperazine). Tolerates promethazine without issue Hyperlipidemia Hypertension, essential labile due to unpredictable Rx absorption with gastroparesis and propensity for dehydration Hold captopril if persistent vomiting occurs or bp less than 120/80 stop coreg and nifedipine Continue clonidine patch#1 Labetalol IV PRN Hypokalemia Connie-Byrne tear Malnutrition Marijuana use, continuous Nausea and vomiting Non-pressure chronic ulcer of other part of left foot limited to breakdown of skin Other hammer toe(s) (acquired), left foot Peripheral autonomic neuropathy due to DM Physical deconditioning Seizures Sepsis Tardive dyskinesia due to metoclopramide (Reglan) Testosterone deficiency Surgical History History of hand surgery Finger repair History of toe surgery left hallux Family History Mother Atrial fibrillation Essential hypertension Sister Malignant neoplasm of female breast Maternal Grandfather Malignant neoplasm of colon Recorded 11/12/10 Father Essential hypertension Other Adopted DKA, type 1 Social History adopted: Yes household members: family housing: other details: 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 marital status: single occupational status: disabled occupation: On disability since 2016 physical activity: walking smoking status: Unknown if ever smoked alcohol intake frequency: former alcohol drinker substance use type: former substance user seatbelt use: always MEDS/ALLERGIES Home Medications and Allergies Home Medications Medication Instructions Recorded Confirmed Type Dexcom sensor & monitor #1 ea 08/27/21 07/24/22 Rx blood sugar diagnostic (Blood #500 ea 09/10/21 07/24/22 Rx Glucose Test strips) blood-glucose meter #1 ea 09/10/21 07/24/22 Rx lancets #500 ea 09/10/21 07/24/22 Rx insulin syringes (disposable) 1 mL #500 ea 01/12/22 07/24/22 Rx promethazine 25 mg rectal 25 mg TN Q6H PRN nausea and 04/09/22 07/24/22 Rx suppository (Promethegan) vomiting #12 ea glucagon 3 mg/actuation nasal 3 mg intranasal ONCE PRN 04/20/22 07/24/22 Rx spray (Baqsimi) hypoglycemia #1 ea fluoxetine 20 mg capsule 20 mg PO QDAY #90 caps 05/04/22 07/24/22 Rx sucralfate 1 gram tablet (Carafate) 1 g PO BID #70 tabs 05/28/22 07/24/22 Rx mirtazapine 15 mg disintegrating 15 mg PO HS #90 tabs 06/08/22 07/24/22 Rx tablet venlafaxine 75 mg capsule,extended 225 mg PO QAM #90 caps 06/08/22 07/24/22 Rx release 24 hr clonidine 0.3 mg/24 hr weekly 1 patch TD Fr@1000 #4 ea 06/25/22 07/24/22 Rx transdermal patch diltiazem HCl 30 mg tablet 60 mg PO Q8 #90 tabs 06/25/22 07/24/22 Rx diphenhydramine HCl 25 mg capsule 25 mg PO QHS PRN insomnia #30 caps 06/25/22 07/24/22 Rx (EZ Nite Sleep) ropinirole 0.25 mg tablet 0.5 mg PO HSP PRN restless leg #10 06/25/22 07/24/22 Rx tabs insulin aspart U-100 100 unit/mL See Rx Instructions subcut TID #60 06/26/22 07/24/22 Rx subcutaneous solution (Novolog mL U-100 Insulin aspart) ondansetron 4 mg disintegrating 4 mg PO Q8H cyclic vomiting #120 07/20/2202/06 Rx tablet tabs carvedilol 6.25 mg tablet 1 tab PO BID 07/24/22 07/24/22 History famotidine 20 mg tablet 20 mg PO BID 07/24/22 07/24/22 History Allergies Allergy/AdvReac Type Severity Reaction Status Date / Time NSAIDS (Non-Steroidal Allergy Unknown Unknown Verified 07/23/22 10:09 Anti-Inflamma metoclopramide [From Reglan] AdvReac Mild Agitated Verified 07/23/22 10:09 prochlorperazine AdvReac Mild "My whole Verified 07/23/22 10:09 [From Compazine] body freaks out." silver AdvReac Mild dystonic Verified 07/23/22 10:09 IV iodine contrast Allergy Unknown Unknown Uncoded 07/24/22 05:39 Physical Examination Vital Signs Vital signs: Temp Pulse Resp BP Pulse Ox O2 Del Method O2 Flow Rate 98.6 F 72 18 127/87 100 2 07/26/22 16:00 07/26/22 16:00 07/26/22 16:00 07/26/22 16:00 07/26/22 16:00 07/26/22 16:00 07/25/22 20:34 Results Laboratory Findings CBC and BMP: 07/25/22 22:56 07/26/22 05:57 ABG, PT/INR, D-dimer: PT/INR, D-dimer D-Dimer 2.56 ug/mL (0.27-0.50) H 07/24/22 13:13 Abnormal lab findings: Abnormal Labs 07/23/22 07/23/22 07/23/22 10:20 10:20 11:01 WBC 12.4 H RBC 3.85 L Hgb 10.3 L Hct 31.9 L POC Hct MCHC RDW 15.3 H Neut % (Auto) 82.5 H Lymph % (Auto) 5.2 L [place] % (Auto) Lymph # (Auto) 0.65 L [place] # (Auto) 1.45 H Seg Neutrophils % Lymphocytes % Basophils % (Manual) Immature Gran # Absolute Neutrophils 10.24 H RBC Morphology Hypochromasia Anisocytosis D-Dimer ABG Methemoglobin VBG pH VBG pCO2 VBG pO2 VBG HCO3 VBG Total CO2 VBG O2 Saturation VBG Base Excess Carboxyhemoglobin Total Hemoglobin POC Sodium Sodium 121 L POC Potassium Potassium POC Chloride Chloride < 60 L Carbon Dioxide 39 H POC Total CO2 Anion Gap 22.0 H POC BUN BUN 101 H* Creatinine 5.9 H* POC Creatinine Glucose 1309 H* POC Glucose Osmolality Uric Acid Calcium 7.0 L POC WB Ioniz Calcium Phosphorus Magnesium Alkaline Phosphatase 165 H Lactate Dehydrogenase Total Protein Triglycerides Lipase 192 H Beta-Hydroxybutyrate Urine Protein Urine Glucose (UA) Urine Ketones U Marijuana (THC) Screen 07/23/22 07/23/22 07/23/22 11:04 11:04 18:50 WBC RBC Hgb Hct POC Hct MCHC RDW Neut % (Auto) Lymph % (Auto) [place] % (Auto) Lymph # (Auto) [place] # (Auto) Seg Neutrophils % Lymphocytes % Basophils % (Manual) Immature Gran # Absolute Neutrophils RBC Morphology Hypochromasia Anisocytosis D-Dimer ABG Methemoglobin VBG pH VBG pCO2 VBG pO2 VBG HCO3 VBG Total CO2 VBG O2 Saturation VBG Base Excess Carboxyhemoglobin Total Hemoglobin POC Sodium Sodium POC Potassium Potassium POC Chloride Chloride Carbon Dioxide POC Total CO2 Anion Gap POC BUN BUN Creatinine POC Creatinine Glucose POC Glucose Osmolality 381 H Uric Acid Calcium POC WB Ioniz Calcium Phosphorus Magnesium Alkaline Phosphatase Lactate Dehydrogenase Total Protein Triglycerides Lipase Beta-Hydroxybutyrate 9.80 H Urine Protein 100 A Urine Glucose (UA) >=500 A Urine Ketones 20 A U Marijuana (THC) Screen 07/23/22 07/23/22 07/23/22 21:05 21:05 21:53 WBC RBC Hgb Hct POC Hct 34.0 L MCHC RDW Neut % (Auto) Lymph % (Auto) [place] % (Auto) Lymph # (Auto) [place] # (Auto) Seg Neutrophils % Lymphocytes % Basophils % (Manual) Immature Gran # Absolute Neutrophils RBC Morphology Hypochromasia Anisocytosis D-Dimer ABG Methemoglobin VBG pH VBG pCO2 VBG pO2 VBG HCO3 VBG Total CO2 VBG O2 Saturation VBG Base Excess Carboxyhemoglobin Total Hemoglobin POC Sodium 132 L Sodium POC Potassium 2.8 L* Potassium 2.8 L* POC Chloride 78 L Chloride 73 L Carbon Dioxide 36 H POC Total CO2 36.0 H Anion Gap 26.0 H POC BUN 70 H BUN 87 H Creatinine 5.2 H* POC Creatinine 6.2 H* Glucose 690 H* POC Glucose > 700 H* Osmolality Uric Acid Calcium 7.3 L POC WB Ioniz Calcium 0.75 L Phosphorus Magnesium 4.2 H* Alkaline Phosphatase Lactate Dehydrogenase Total Protein Triglycerides Lipase Beta-Hydroxybutyrate 8.41 H Urine Protein Urine Glucose (UA) Urine Ketones U Marijuana (THC) Screen 07/23/22 07/24/22 07/24/22 23:32 01:16 02:02 WBC RBC Hgb Hct POC Hct 34.0 L 33.0 L 32.0 L MCHC RDW Neut % (Auto) Lymph % (Auto) [place] % (Auto) Lymph # (Auto) [place] # (Auto) Seg Neutrophils % Lymphocytes % Basophils % (Manual) Immature Gran # Absolute Neutrophils RBC Morphology Hypochromasia Anisocytosis D-Dimer ABG Methemoglobin VBG pH VBG pCO2 VBG pO2 VBG HCO3 VBG Total CO2 VBG O2 Saturation VBG Base Excess Carboxyhemoglobin Total Hemoglobin POC Sodium 131 L Sodium POC Potassium 3.0 L Potassium POC Chloride 80 L 80 L 81 L Chloride Carbon Dioxide POC Total CO2 35.0 H 39.0 H 39.0 H Anion Gap POC BUN 74 H 80 H 83 H BUN Creatinine POC Creatinine 5.9 H* 5.6 H* 5.4 H* Glucose POC Glucose > 700 H* > 700 H* > 700 H* Osmolality Uric Acid Calcium POC WB Ioniz Calcium 0.68 L* 0.83 L 0.85 L Phosphorus Magnesium Alkaline Phosphatase Lactate Dehydrogenase Total Protein Triglycerides Lipase Beta-Hydroxybutyrate Urine Protein Urine Glucose (UA) Urine Ketones U Marijuana (THC) Screen 07/24/22 07/24/22 07/24/22 03:10 03:14 05:00 WBC RBC Hgb Hct POC Hct 32.0 L MCHC RDW Neut % (Auto) Lymph % (Auto) [place] % (Auto) Lymph # (Auto) [place] # (Auto) Seg Neutrophils % Lymphocytes % Basophils % (Manual) Immature Gran # Absolute Neutrophils RBC Morphology Hypochromasia Anisocytosis D-Dimer ABG Methemoglobin VBG pH VBG pCO2 VBG pO2 VBG HCO3 VBG Total CO2 VBG O2 Saturation VBG Base Excess Carboxyhemoglobin Total Hemoglobin POC Sodium 132 L Sodium POC Potassium Potassium POC Chloride 83 L Chloride Carbon Dioxide POC Total CO2 37.0 H Anion Gap POC BUN 81 H BUN Creatinine POC Creatinine 5.7 H* Glucose 766 H* POC Glucose > 700 H* Osmolality Uric Acid Calcium POC WB Ioniz Calcium 0.80 L Phosphorus Magnesium Alkaline Phosphatase Lactate Dehydrogenase Total Protein Triglycerides Lipase Beta-Hydroxybutyrate 4.11 H Urine Protein Urine Glucose (UA) Urine Ketones U Marijuana (THC) Screen 07/24/22 07/24/22 07/24/22 05:16 05:16 05:26 WBC 15.8 H RBC 3.52 L Hgb 9.5 L Hct 29.6 L POC Hct 31.0 L MCHC RDW 15.6 H Neut % (Auto) 79.5 H Lymph % (Auto) 7.8 L [place] % (Auto) 12.1 H Lymph # (Auto) 1.23 L [place] # (Auto) 1.91 H Seg Neutrophils % Lymphocytes % Basophils % (Manual) Immature Gran # 0.08 H Absolute Neutrophils 12.60 H RBC Morphology Hypochromasia Anisocytosis D-Dimer ABG Methemoglobin VBG pH VBG pCO2 VBG pO2 VBG HCO3 VBG Total CO2 VBG O2 Saturation VBG Base Excess Carboxyhemoglobin Total Hemoglobin POC Sodium Sodium POC Potassium Potassium POC Chloride 83 L Chloride 86 L Carbon Dioxide 38 H POC Total CO2 42.0 H Anion Gap POC BUN 81 H BUN 79 H Creatinine 5.1 H* POC Creatinine 5.4 H* Glucose 598 H* POC Glucose 629 H* Osmolality Uric Acid 11.0 H Calcium 7.6 L POC WB Ioniz Calcium 0.89 L Phosphorus 8.3 H* Magnesium 4.3 H* Alkaline Phosphatase 142 H Lactate Dehydrogenase 248 H Total Protein Triglycerides 205 H Lipase Beta-Hydroxybutyrate Urine Protein Urine Glucose (UA) Urine Ketones U Marijuana (THC) Screen 07/24/22 07/24/22 07/24/22 05:26 13:13 17:42 WBC RBC Hgb Hct POC Hct MCHC RDW Neut % (Auto) Lymph % (Auto) [place] % (Auto) Lymph # (Auto) [place] # (Auto) Seg Neutrophils % 82 H Lymphocytes % 12 L Basophils % (Manual) Immature Gran # Absolute Neutrophils RBC Morphology Abnormal A Hypochromasia Anisocytosis 1+ A D-Dimer 2.56 H ABG Methemoglobin 0.3 L VBG pH 7.55 H VBG pCO2 36.6 L VBG pO2 114.2 H VBG HCO3 31.4 H VBG Total CO2 32.6 H VBG O2 Saturation 87.7 H VBG Base Excess 9 H Carboxyhemoglobin 9.8 H Total Hemoglobin 9.9 L POC Sodium Sodium POC Potassium Potassium POC Chloride Chloride Carbon Dioxide POC Total CO2 Anion Gap POC BUN BUN Creatinine POC Creatinine Glucose POC Glucose Osmolality Uric Acid Calcium POC WB Ioniz Calcium Phosphorus Magnesium Alkaline Phosphatase Lactate Dehydrogenase Total Protein Triglycerides Lipase Beta-Hydroxybutyrate Urine Protein Urine Glucose (UA) Urine Ketones U Marijuana (THC) Screen 07/24/22 07/25/22 07/25/22 17:42 05:10 05:10 WBC RBC 3.15 L Hgb 8.4 L Hct 27.6 L POC Hct MCHC 30.4 L RDW 15.6 H Neut % (Auto) Lymph % (Auto) [place] % (Auto) Lymph # (Auto) [place] # (Auto) Seg Neutrophils % Lymphocytes % Basophils % (Manual) Immature Gran # Absolute Neutrophils RBC Morphology Hypochromasia Anisocytosis D-Dimer ABG Methemoglobin VBG pH VBG pCO2 VBG pO2 VBG HCO3 VBG Total CO2 VBG O2 Saturation VBG Base Excess Carboxyhemoglobin Total Hemoglobin POC Sodium Sodium POC Potassium Potassium 3.1 L POC Chloride Chloride 93 L Carbon Dioxide 35 H POC Total CO2 Anion Gap POC BUN BUN 61 H 55 H Creatinine 4.3 H 4.3 H POC Creatinine Glucose 131 H 188 H POC Glucose Osmolality Uric Acid Calcium 8.5 L POC WB Ioniz Calcium Phosphorus Magnesium 3.2 H Alkaline Phosphatase Lactate Dehydrogenase Total Protein 5.8 L Triglycerides 152 H Lipase Beta-Hydroxybutyrate Urine Protein Urine Glucose (UA) Urine Ketones U Marijuana (THC) Screen 07/25/22 07/25/22 07/26/22 05:10 22:56 05:57 WBC RBC 3.84 L Hgb 10.3 L Hct 34.6 L POC Hct MCHC 29.8 L RDW 15.5 H Neut % (Auto) Lymph % (Auto) [place] % (Auto) Lymph # (Auto) [place] # (Auto) Seg Neutrophils % Lymphocytes % Basophils % (Manual) 3 H Immature Gran # Absolute Neutrophils RBC Morphology Abnormal A Hypochromasia 2+ A Anisocytosis 1+ A D-Dimer ABG Methemoglobin VBG pH VBG pCO2 VBG pO2 VBG HCO3 VBG Total CO2 VBG O2 Saturation VBG Base Excess Carboxyhemoglobin Total Hemoglobin POC Sodium Sodium POC Potassium Potassium POC Chloride Chloride Carbon Dioxide POC Total CO2 Anion Gap 7.0 L POC BUN BUN 51 H Creatinine 3.9 H POC Creatinine Glucose POC Glucose Osmolality Uric Acid Calcium POC WB Ioniz Calcium Phosphorus Magnesium 2.8 H Alkaline Phosphatase 119 H Lactate Dehydrogenase Total Protein Triglycerides 178 H Lipase Beta-Hydroxybutyrate 0.41 H Urine Protein Urine Glucose (UA) Urine Ketones U Marijuana (THC) Screen 07/26/22 07/26/22 07/26/22 05:57 05:57 06:20 WBC RBC Hgb Hct POC Hct MCHC RDW Neut % (Auto) Lymph % (Auto) [place] % (Auto) Lymph # (Auto) [place] # (Auto) Seg Neutrophils % Lymphocytes % Basophils % (Manual) Immature Gran # Absolute Neutrophils RBC Morphology Hypochromasia Anisocytosis D-Dimer ABG Methemoglobin 0 L VBG pH 7.51 H VBG pCO2 36.9 L VBG pO2 140.0 H VBG HCO3 28.9 H VBG Total CO2 30.0 H VBG O2 Saturation 92.0 H VBG Base Excess 6 H Carboxyhemoglobin 6.2 H Total Hemoglobin 10.7 L POC Sodium Sodium POC Potassium Potassium POC Chloride Chloride Carbon Dioxide POC Total CO2 Anion Gap POC BUN BUN Creatinine POC Creatinine Glucose POC Glucose Osmolality 304 H Uric Acid Calcium POC WB Ioniz Calcium Phosphorus Magnesium 3.1 H Alkaline Phosphatase Lactate Dehydrogenase Total Protein Triglycerides Lipase Beta-Hydroxybutyrate Urine Protein Urine Glucose (UA) Urine Ketones U Marijuana (THC) Screen Suspect positive A Alcohol Toxicology: PT/INR, D-dimer D-Dimer 2.56 ug/mL (0.27-0.50) H 07/24/22 13:13 A/P Time Spent With Patient Time: Total time spent is greater than 50% in coordination of care (as documented) at patient's floor/unit and/or counseling patient:
[2022-07-26] MEDS: PROMETHAZINE 25 MG/ML VIAL IV PRN (19:30)
[2022-07-26] MEDS: FAMOTIDINE/PF 20 MG/2 ML VIAL IV SCH (20:20)
[2022-07-26] MEDS: MIRTAZAPINE 15 MG TABLET PO SCH (20:27)
[2022-07-26] MEDS: MELATONIN 3 MG TABLET PO SCH (20:28)
[2022-07-27] MEDS: DILTIAZEM 30 MG TABLET PO SCH (06:27)
[2022-07-27] MEDS: 0.9 % SODIUM CHLORIDE 10 ML SYRINGE IV SCH (06:28)
[2022-07-27] MEDS: CARVEDILOL 6.25 MG TABLET PO SCH (08:31)
[2022-07-27] MEDS: FLUoxetine HCL 20 MG CAPSULE PO SCH (08:31)
[2022-07-27] MEDS: VENLAFAXINE 75 MG CAP.XL.24H PO SCH (08:31)
[2022-07-27] MEDS: HEPARIN 5,000 UNIT/ML VIAL SQ SCH (08:32)
--- NOTE | 2022-07-27 10:16 | Discharge Summary ---
Discharge Provider Provider IMPORTANT FOLLOW-UP INFORMATION FOR PCP: Patient information: Note initiated : 07/27/22 at 10:12 am Service Date, if different from initiated Date: [] Patient: Mauri Levine 36 y/o M admitted on 07/23/22 for Gastroparesis. Chief Complaint: [N/V] Date of admission: 07/23/22 22:29 Discharge date: 07/27/22 Primary care physician: Flo Peña MD Consults: 07/23/22 Consult to Physician [CONS] Stat Comment: Consulting Provider: Deangelo Basilio Reason For Exam: Physician to Consult Consult to Physician [CONS] Stat Comment: Consulting Provider: Khari Mills Reason For Exam: Physician to Consult 07/26/22 14:50 Consult to Physician [CONS] Routine Comment: tele psych eval Consulting Provider: [facility] Reason For Exam: Physician to Consult Attending physician on discharge: [facility] [place] COURSE Hospital Course Hospital course: Principal diagnosis: DKA, THC hyperemesis, ARF on CKD 4, Triple acid/base disorder, Electrolyte Interval history: The patient was resting comfortably in bed. He was pleasant, calm and cooperative. He was able to carry a full conversation. Discussed the case with the RN the patient did require Haldol and Ativan overnight. 07/27: I took over the care of this patient on July 26 at which point he was medically optimized for discharge. His Haldol and Ativan was discontinued as there was no further issues with delusions or hallucinations. His DKA has resolved. Social and case management will continue to work on finding a assisted for the patient. In the interim, will be discharged home with his parents. He is to follow-up with his psych provider, nephrology, and PCP in an outpatient setting. The patient has a gastric pacemaker as well as an insulin pump. The insulin pump was resumed yesterday. A/P Narrative: A: *DKA-HHS (h/o DMI with h/o Gastroparesis/Neuropathy): likely triggered by below and likely noncompliance given his history. -BG on admit 1309 *N/V: 2/2 likely marijuana hyperemesis vs cyclic vomiting alone or in conjunction with THC, and h/o gastroparesis *Metabolic Encephalopathy with Delerium: 2/2 above and critical care delerium / sleep deprivation -nurse reports worsening o/n with visual hallucinations *Cannabis use: and likely Cannabis hyperemesis syndrome *ROSALIO on CKD IV: Follows with Dr. Mills -improving *Metabolic alkalosis: 2/2 volume loss and H+ loss from n/v *Volume depletion: improving *Electrolyte d/o (hypokalemia/hypochloremia/Hypermag/Hyperphos): improving *Acute hypoxic respiratory failure: 2/2 suspected aspiration from multiple bouts of emesis -temporarily on O2 during first night, off since. CXR unremarkable *Marijuana use: *Anemia, chronic: *HTN: On coreg/clonidine/captopril *Anxiety/depression/binge eating disorder: on Fluoxetine *Long QT Syndrome: noted on EKG's since 2019. Pt is on SSRI *GERD: *long-term prognosis guarded if he doesn't become more vigilant in caring for his disease P: -icu monitoring -IVF's -insulin gtt off, on ssi, start insulin pump -Monitor electrolytes and replace -Nephrology following -consistent carb diet, low fat -Ct brain->unrevealing -Antiemetics, d/c scop patch -cont clonidine/BB IV prn BP meds -echo for loud cardiac murmur -f/u with mental health team -ppx: Heparin/H2 Discharge diagnosis: DKA Time Spent with Patient Time attestation: Total time spent providing and/or coordinating discharge services: Time spent: Greater than 30 minutes EXAM Constitutional Vitals: Temp Pulse Resp BP Pulse Ox O2 Del Method O2 Flow Rate 97.5 F 77 18 121/89 100 0 07/27/22 07:43 07/27/22 07:43 07/27/22 07:43 07/27/22 07:43 07/27/22 07:43 07/27/22 07:43 07/26/22 23:08 General appearance: average body habitus Head Head exam: Present atraumatic, normal inspection and normocephalic Eye Eye exam: Present EOMI, normal appearance and PERRL; Absent conjunctival injection ENT ENT exam: Present normal exam; Absent mucous membranes dry Neck Neck exam: Present full ROM; Absent lymphadenopathy Respiratory Respiratory exam: Present normal respiratory exam and CTAB; Absent decreased breath sounds, respiratory distress or wheezes Cardiovascular Cardiovascular exam: Present normal rate and rhythm and RRR; Absent JVD GI/Abdominal GI/Abdominal exam: Present normal bowel sounds and soft; Absent diminished bowel sounds, distended, guarding, mass, rebound or tenderness Neurological Exam Neurological exam: Present alert, CN II-XII intact and oriented X3 Psychiatric Psychiatric exam: Present normal affect and normal mood Skin Skin exam: Present intact and warm; Absent erythema, pallor, petechiae or rash Discharge Plan Patient/Caregiver Discharge Instructions Activity: resume usual activities as tolerated Instructions: Diabetic Ketoacidosis (DC) Prescriptions: Continued (DME) insulin syringes (disposable) 1 mL syringe See Rx Instructions .Route Qty: 500 0RF Rx Instructions: use for insulin three times daily Baqsimi 3 mg/actuation spray,non-aerosol 3 mg intranasal ONCE PRN (Reason: hypoglycemia) Qty: 1 0RF Rx Instructions: 1 spray intranasal as needed fluoxetine 20 mg capsule 20 mg PO QDAY Qty: 90 0RF sucralfate [Carafate] 1 gram tablet 1 g PO BID Qty: 70 0RF venlafaxine 75 mg capsule,extended release 24hr 225 mg PO QAM Qty: 90 5RF mirtazapine 15 mg tablet,disintegrating 15 mg PO HS Qty: 90 0RF ondansetron 4 mg tablet,disintegrating 4 mg PO Q8H Qty: 120 0RF (DME) Dexcom sensor & monitor See Rx Instructions .Route .MEDSUPPLY Qty: 1 0RF Rx Instructions: As directed promethazine [Promethegan] 25 mg suppository [address] Q6H PRN (Reason: nausea and vomiting) Qty: 12 0RF (DME) blood-glucose meter Misc See Rx Instructions .Route Qty: 1 3RF Rx Instructions: use to test blood sugar 5 times daily (DME) Blood Glucose Test Strip See Rx Instructions .ROUTE .MEDSUPPLY Qty: 500 3RF Rx Instructions: use to test blood sugar 5 times daily (DME) lancets Misc See Rx Instructions .Route Qty: 500 3RF Rx Instructions: use to test blood sugar 5 times daily clonidine 0.3 mg/24 hr Patch Weekly 1 patch TD Fr@1000 Qty: 4 2RF ropinirole 0.25 mg Tablet 0.5 mg PO HSP PRN (Reason: restless leg) Qty: 10 2RF diltiazem HCl 30 mg Tablet 60 mg PO Q8 Qty: 90 2RF diphenhydramine HCl [EZ Nite Sleep] 25 mg capsule 25 mg PO QHS PRN (Reason: insomnia) Qty: 30 1RF insulin aspart U-100 [Novolog U-100 Insulin aspart] 100 unit/mL solution See Rx Instructions subcut TID Qty: 60 1RF Rx Instructions: subcut three times daily with meals; Moderate Dose Scale Blood Sugar (mg/dL), Units Insulin 70-130, 0 units 131-180, 4 units 181-240, 8 units 241-300, 10 units 301-350, 12 units 351-400, 16 units >400, 20 units and call famotidine 20 mg tablet 20 mg PO BID carvedilol 6.25 mg tablet 1 tab PO BID Follow Up Plan Follow up with: Flo Peña MD [Primary Care Provider] - Patient Disposition: Home, Self-Care I certify that the patient requires SNF services: No Overall status at discharge: patient is back to baseline Discharge Orders: Discharge Order (Routine); Ordered 07/27/22 Ordered By: Jorge BEACH VTE Deep Vein Thrombosis/Pulmonary Embolism Present on Admission: No
[2022-07-30] MEDS ORDERED: cloNIDine TTS 3 1 PATCH PATCH TD SCH (10:00)
[2022-08-04 15:05] LABS: Cannabinoid Confirmation Positive
== END 2022-07-27 12:40 | disposition home or self-care (01) | DRG 637 ==
LOC: ED 09:58 → ICU 22:28 → MEDSUR 07-26 13:55
PROVIDERS: ADMIT Internal Medicine; ATTEND Student in an Organized Health Care Education/Training Program

== ENCOUNTER 2022-08-12 17:28 | Inpatient (IN) ==
[2022-08-12] MEDS ORDERED: 0.9 % SODIUM CHLORIDE 1,000 ML IV ONE (17:41)
[2022-08-12] MEDS ORDERED: ONDANSETRON 4 MG/2 ML VIAL IV ONE (17:42)
[2022-08-12] MEDS ORDERED: PANTOPRAZOLE 40 MG VIAL IV ONE (18:24)
[2022-08-12 18:36] LABS: POC Blood Urea Nitrogen 51 (6-20); POC Calcium, Ionized 0.79 (1.16-1.32); POC Chloride < 65 (96-108); POC Creatinine 3.9 (0.6-1.2); POC Glucose, Random > 700 (70-105); POC Potassium 3.4 (3.3-5.1); POC Sodium 118 (133-145)
[2022-08-12 18:56] LABS: Basophils # (Auto) 0.06 K/mcL (0.00-0.30); Basophils % (Auto) 0.8 % (0.0-2.0); Eosinophils # (Auto) 0 K/mcL (0.00-0.70); Eosinophils % (Auto) 0 % (0.0-7.0); Hematocrit 31.5 % (40.1-51.0); Hemoglobin 10.4 g/dL (13.7-17.5); Lymphocytes # (Auto) 1.21 K/mcL (1.50-4.80); Lymphocytes % (Auto) 16.4 % (15.5-49.0); Mean Cell Volume 80.6 fL (80.0-100.0); Mean Platelet Volume 10.8 fL (8.8-12.5); Monocytes # (Auto) 0.88 K/mcL (0.10-0.90); Monocytes % (Auto) 11.9 % (1.0-12.0); Neutrophils % (Auto) 70.6 % (38.0-78.0); Platelet Count 421 K/mcL (140-440); RBC 3.91 M/mcL (4.63-6.08); Red Cell Distribution Width 14.6 % (11.5-14.5); WBC 7.4 K/mcL (4.5-11.0)
[2022-08-12] MEDS ORDERED: POTASSIUM CHLORIDE 20 MEQ in DEXTROSE 5% IN WATER 250 ML IV ONE (19:12)
[2022-08-12] MEDS ORDERED: INSULIN REGULAR, HUMAN 1 UNIT/0.01 ML UNIT IV ONE (19:14)
[2022-08-12] MEDS ORDERED: INSULIN REGULAR, HUMAN 50 UNIT in 0.9 % SODIUM CHLORIDE 99.5 ML IV SCH ×2 (19:15→22:15)
[2022-08-12] MEDS ORDERED: PROMETHAZINE 25 MG PR ONE (19:16)
--- NOTE | 2022-08-12 19:22 | Emergency Department Note ---
HPI General Chief complaint: Blood Sugar Problem Stated complaint: HI BG Time Seen by Provider: 08/12/22 17:36 Source: EMS Mode of arrival: EMS Limitations: no limitations History of Present Illness HPI Narrative: 36-year-old brittle diabetic male with CKD stage 3, gastroparesis, neuropathy, hypertension, long QT syndrome, anemia due to chronic disease, GERD presents to the ER in acute DKA with persistent nausea and vomiting x2 days. Patient also has a history of marijuana use and hyperemesis syndrome with last use over . Patient states that his continuous monitoring glucometer has been malfunctioning for the past few days. He also notes that his insulin pump has not been functioning normally. Mom is at the bedside and states that EMS has been called to her house 3 times. Twice for blood sugars in the 30s, and today for blood sugars that were not reportable due to being so high. The patient has multiple ER visits and admissions for DKA. Last admission was 07/27/2022. Blood glucose on admission was 1309. Echocardiogram dated 07/26/2022 shows moderate concentric left ventricular hyper trophy, normal EF of 60 to 65%, mild to moderately dilated right ventricle, mild aortic insufficiency, mild mitral valve regurgitation. The patient denies hematemesis. Mom states that he has an upper endoscopy study scheduled for next week as they are concerned about . Connie-Byrne tears from all of his vomiting. There is also concern for esophagitis given his constant vomiting. Related Data Home Medications Medication Instructions Recorded Confirmed carvedilol 6.25 mg tablet 1 tab PO BID 07/24/22 08/05/22 Previous Rx's Medication Instructions Recorded Dexcom sensor & monitor #1 ea 08/27/21 blood sugar diagnostic (Blood #500 ea 09/10/21 Glucose Test strips) blood-glucose meter #1 ea 09/10/21 lancets #500 ea 09/10/21 insulin syringes (disposable) 1 mL #500 ea 01/12/22 sucralfate 1 gram tablet (Carafate) 1 g PO BID #70 tabs 05/28/22 mirtazapine 15 mg disintegrating 15 mg PO HS #90 tabs 06/08/22 tablet venlafaxine 75 mg capsule,extended 225 mg PO QAM #90 caps 06/08/22 release 24 hr clonidine 0.3 mg/24 hr weekly 1 patch TD Fr@1000 #4 ea 06/25/22 transdermal patch diltiazem HCl 30 mg tablet 60 mg PO Q8 #90 tabs 06/25/22 diphenhydramine HCl 25 mg capsule 25 mg PO QHS PRN insomnia #30 caps 06/25/22 (EZ Nite Sleep) ropinirole 0.25 mg tablet 0.5 mg PO HSP PRN restless leg #10 06/25/22 tabs insulin aspart U-100 100 unit/mL See Rx Instructions subcut TID #60 06/26/22 subcutaneous solution (Novolog mL U-100 Insulin aspart) ondansetron 4 mg disintegrating 4 mg PO Q8H cyclic vomiting #120 07/20/22 tablet tabs fluoxetine 20 mg capsule 20 mg PO QDAY #90 caps 08/03/22 promethazine 25 mg rectal 25 mg NH Q6H PRN nausea and 08/03/22 suppository (Promethegan) vomiting #12 ea doxycycline hyclate 100 mg tablet 100 mg PO BID 5 days #10 tabs 08/05/22 famotidine 20 mg tablet 20 mg PO BID #90 tabs 08/10/22 glucagon 3 mg/actuation nasal 3 mg intranasal ONCE PRN 08/10/22 spray (Baqsimi) hypoglycemia #1 ea Allergies Allergy/AdvReac Type Severity Reaction Status Date / Time NSAIDS (Non-Steroidal Allergy Unknown Unknown Verified 08/12/22 17:38 Anti-Inflamma metoclopramide [From Reglan] AdvReac Mild Agitated Verified 08/12/22 17:38 prochlorperazine AdvReac Mild "My whole Verified 08/12/22 17:38 [From Compazine] body freaks out." silver AdvReac Mild dystonic Verified 08/12/22 17:38 IV iodine contrast Allergy Unknown Unknown Uncoded 08/05/22 12:55 Review of Systems ROS ROS Narrative: Narrative: All systems ED: reviewed and negative except as stated. PFSH Narrative Patient History Narrative: Narrative: Medical/Surgical/Family History All Active Problems (Updated 08/12/22 @ 19:56 by Autumn Salinas PA-C) Testosterone deficiency (Chronic) Nausea and vomiting (Chronic) GERD (gastroesophageal reflux disease) (Chronic) Other hammer toe(s) (acquired), left foot (Chronic) Hypertension, essential (Chronic) Hyperlipidemia (Chronic) History of neuroleptic malignant syndrome (Chronic) Dehydration (Chronic) Drug-induced nausea and vomiting (Acute) Uncontrolled type 1 diabetes mellitus with diabetic nephropathy, with long-term current use of insulin (Chronic) Cyclic vomiting syndrome (Chronic) Type 1 diabetes mellitus with stage 3 chronic kidney disease and hypertension (Chronic) Marijuana use, continuous (Chronic) CKD (chronic kidney disease) (Acute) Nephrotic range proteinuria (Chronic) Controlled type 1 diabetes mellitus with chronic kidney disease (Chronic) Port-A-Cath in place (Acute) Diabetic gastroparesis associated with type 1 diabetes mellitus (Chronic) Diabetic neuropathy associated with type 1 diabetes mellitus (Chronic) Diabetic retinopathy associated with type 1 diabetes mellitus (Chronic) Anxiety (Chronic) Back pain (Chronic) Physical deconditioning (Chronic) Malnutrition (Chronic) Acute dehydration (Acute) Acute hypokalemia (Acute) QT prolongation (Acute) Dehydration (Acute) No-show for appointment (Acute) Intractable cyclical vomiting with nausea (Acute) Diabetic gastroparesis (Chronic) ROSALIO (acute kidney injury) (Acute) Hyperglycemia (Acute) Dehydration (Acute) Major depressive disorder, recurrent (Chronic) Generalized anxiety disorder (Chronic) Trauma and stressor-related disorder (Chronic) Diabetic gastroparesis (Acute) Nausea & vomiting (Acute) Acute dehydration (Acute) Ketosis (Acute) Uncontrolled diabetes mellitus (Acute) DKA (diabetic ketoacidosis) (Acute) Hyperosmolar hyperglycemic state (HHS) (Acute) Diabetic gastroparesis (Acute) Metabolic alkalosis (Acute) Stage 2 acute kidney injury (Acute) Hyponatremia (Acute) DKA (diabetic ketoacidosis) (Acute) Has multiple sexual partners (Acute) Hyperosmolar hyperglycemic state (HHS) (Acute) Acute hypokalemia (Acute) ROSALIO (acute kidney injury) (Acute) Nausea & vomiting (Acute) Hypochloremia (Acute) Alkalosis (Acute) Acute renal failure superimposed on stage 3a chronic kidney disease (Acute) Metabolic alkalosis (Acute) Altered mental status (Acute) Depression (Acute) Acute hyperglycemia (Acute) Nausea & vomiting (Acute) Seizures (Acute) Abnormal CT of brain (Acute) Sepsis (Acute) Hyponatremia (Acute) Pneumonia (Acute) Acute renal failure (Acute) Hypokalemia (Acute) Diabetic gastroparesis (Acute) Diabetic gastroparesis (Acute) CKD stage G3b/A3, GFR 30-44 and albumin creatinine ratio >300 mg/g (Acute) Renal failure (ARF), acute on chronic (Acute) ROSALIO (acute kidney injury) (Acute) Acute hypokalemia (Acute) Acidosis (Acute) Acid-base disorder, mixed (Acute) Acute worsening of stage 4 chronic kidney disease (Acute) Type 1 diabetes mellitus with hyperosmolar hyperglycemic state (HHS) (Acute) Acute hypokalemia (Acute) Nausea & vomiting (Acute) Acute respiratory failure with hypoxia (Acute) Type 1 diabetes mellitus with hyperosmolar hyperglycemic state (HHS) (Acute) Anemia associated with stage 4 chronic renal failure (Acute) DKA, type 1, not at goal (Acute) Metabolic acidosis with respiratory alkalosis (Acute) Gastroparesis (Acute) Tetrahydrocannabinol (THC) use disorder, moderate, dependence (Chronic) Binge eating disorder (Chronic) CKD stage 4 due to type 1 diabetes mellitus (Acute) Diabetic keto-acidosis (Acute) Mental health problem (Chronic) Toxic metabolic encephalopathy (Acute) Munchausen syndrome (Acute) DKA (diabetic ketoacidosis) (Acute) Cutaneous abscess of right axilla (Acute) Medical History Abdominal pain, epigastric Abnormal CT of brain Altered mental status Anxiety Back pain Chronic ulcer of left foot Coffee ground emesis Cutaneous abscess of right axilla Depression Diabetes mellitus type I Age 12, With foot ulcer Diabetic gastroparesis associated with type 1 diabetes mellitus Diabetic neuropathy associated with type 1 diabetes mellitus Diabetic peripheral neuropathy Diabetic retinopathy associated with type 1 diabetes mellitus DKA, type 1 Esophageal candidiasis Gastroenteritis Gastroparesis due to DM GERD (gastroesophageal reflux disease) Hallux valgus (acquired), left foot Has multiple sexual partners History of neuroleptic malignant syndrome To compazine (prochlorperazine). Tolerates promethazine without issue Hyperlipidemia Hypertension, essential labile due to unpredictable Rx absorption with gastroparesis and propensity for dehydration Hold captopril if persistent vomiting occurs or bp less than 120/80 stop coreg and nifedipine Continue clonidine patch#1 Labetalol IV PRN Hypokalemia Connie-Byrne tear Malnutrition Marijuana use, continuous Nausea and vomiting Non-pressure chronic ulcer of other part of left foot limited to breakdown of skin Other hammer toe(s) (acquired), left foot Peripheral autonomic neuropathy due to DM Physical deconditioning Seizures Sepsis Tardive dyskinesia due to metoclopramide (Reglan) Testosterone deficiency Surgical History History of hand surgery Finger repair History of toe surgery left hallux Family History Mother Atrial fibrillation Essential hypertension Sister Malignant neoplasm of female breast Maternal Grandfather Malignant neoplasm of colon Recorded 11/12/10 Father Essential hypertension Other Adopted DKA, type 1 Social History Smoking Status: Unknown if ever smoked Alcohol Intake Frequency: former alcohol drinker Substance Use: former substance user Exam Narrative Narrative: General: AOx3, acutely vomiting, ill appearing. Cooperative and answering quest ions HEENT: PERRL, EOMI, normocephalic. Dry mucous membranes. Normal facies and normal dentition. Chest: Symmetric, no pain to palpation Respiratory: Lungs clear to auscultation bilaterally. No respiratory distress. Unlabored breathing. Heart: Regular rate and rhythm, no murmurs/clicks/rubs. Abdomen: Non-tender, Non distended, normal bowel tones. No organomegaly. Extremities: Warm and well perfused. No edema. DP 2+ bilaterally. No venous stasis. Neuro: No focal deficits. Cranial nerves II-XII grossly normal. Skin: Warm dry, no rashes or lesions, no cyanosis. Psych: Normal mood and affect Heme/Lymph: No abnormal bruising General Limitations: no limitations Course Course Course Narrative: 36-year-old brittle diabetic male presents to the ER with acute nausea and vomiting and DKA Reevaluation(s) Reevaluation #1: DKA work-up Start IV fluids Check potassium, if less than 3.3 will need to give IV potassium prior to starting insulin IV Zofran and promethazine Check an EKG Reevaluation #2: VBG with lactic acid 4.3, CO2 greater than 50, bicarb of 49.4, pH of 7.58 Potassium is 3.4, will err on the side of caution and give 20 mEq of IV potassium for replacement prior to initiating insulin drip Pseudohyponatremia as expected Anion gap is 22 Creatinine is 3.9 at his baseline. BUN 51 Glucose is 948 Ionized calcium is 0.79 Beta hydroxybutyrate 4.96 Liver enzymes within normal limits Reevaluation #3: Initiate insulin drip with 10 unit bolus and 7 units/hour Vital Signs Vital signs: Vital Signs Temperature 96.7 F L 08/12/22 17:35 Pulse Rate 100 H 08/12/22 17:35 Respiratory Rate 20 08/12/22 17:35 Blood Pressure 99/68 08/12/22 17:35 Pulse Oximetry (%) 100 08/12/22 17:35 Oxygen Delivery Method Room Air 08/12/22 17:35 Temperature 96.7 F L 08/12/22 17:35 Pulse Rate 98 H 08/12/22 19:31 Respiratory Rate 20 08/12/22 17:35 Blood Pressure 185/89 08/12/22 19:31 Pulse Oximetry (%) 93 08/12/22 19:31 Oxygen Delivery Method Nasal Cannula 08/12/22 19:29 Oxygen Flow Rate (L/min) 2 08/12/22 19:29 MDM MDM Narrative Medical decision making narrative: DKA Currently DKA protocol has been initiated. The patient will need admission for stabilization. I sent the patient out to Dr. Vega at change of shift. Please see his note for further details and plan of care. Lab Data 08/12/22 17:55 08/12/22 17:55 Labs: Lab Results 08/12/22 08/12/22 08/12/22 Range/Units 17:55 17:55 18:01 WBC 7.4 (4.5-11.0) K/mcL RBC 3.91 L (4.63-6.08) M/mcL Hgb 10.4 L (13.7-17.5) g/dL Hct 31.5 L (40.1-51.0) % POC Hct (41-55) MCV 80.6 (80.0-100.0) fL MCH 26.6 (26.0-34.0) pg MCHC 33.0 (31.0-36.0) g/dL RDW 14.6 H (11.5-14.5) % Plt Count 421 (140-440) K/mcL MPV 10.8 (8.8-12.5) fL Immature Gran % (Auto) 0.3 (0.0-0.5) % Neut % (Auto) 70.6 (38.0-78.0) % Lymph % (Auto) 16.4 (15.5-49.0) % Bowie % (Auto) 11.9 (1.0-12.0) % Eos % (Auto) 0 (0.0-7.0) % Baso % (Auto) 0.8 (0.0-2.0) % Lymph # (Auto) 1.21 L (1.50-4.80) K/mcL Bowie # (Auto) 0.88 (0.10-0.90) K/mcL Eos # (Auto) 0 (0.00-0.70) K/mcL Baso # (Auto) 0.06 (0.00-0.30) K/mcL Immature Gran # 0.02 (0.00-0.05) K/mcl Absolute Neutrophils 5.20 (1.80-8.00) K/mcL POC VBG pH 7.70 H* (7.32-7.42) POC VBG pCO2 at Temp 40.1 L (41-51) POC VBG pO2 29 (25-40) POC VBG HCO3 49.3 H* (24-28) POC VBG Total CO2 > 50.0 H* (25-29) POC Venous O2 Sat 71.0 H (40-70) POC VBG Base Excess 29.0 H* (-2-2) VBG Lactic Acid 4.0 H* (0.5-2) POC Sodium (133-145) Sodium 124 L (133-145) mmol/L POC Potassium (3.3-5.1) Potassium 3.6 (3.3-5.1) mmol/L POC Chloride (96-108) Chloride 61 L (96-108) mmol/L Carbon Dioxide 41 H* (22-30) mmol/L POC Total CO2 (22-30) Anion Gap 22.0 H (8.0-16.0) POC BUN (6-20) BUN 58 H (6-20) mg/dL Creatinine 3.5 H (0.7-1.2) mg/dL POC Creatinine (0.6-1.2) GFR Calculation 21 Glucose 948 H* (70-105) mg/dL POC Glucose (70-105) Calcium 8.4 L (8.6-10.4) mg/dL POC WB Ioniz Calcium (1.16-1.32) Total Bilirubin 0.3 (0.1-1.0) mg/dL AST 12 (<40) U/L ALT 12 (<40) U/L Alkaline Phosphatase 190 H (39-117) U/L Total Protein 7.2 (5.9-8.4) gm/dL Albumin 3.7 (3.2-5.2) gm/dL Globulin 3.5 (2.2-3.7) gm/dL Albumin/Globulin Ratio 1.1 (1.0-2.3) Beta-Hydroxybutyrate 4.96 H (<0.27) mmol/L 08/12/22 08/12/22 Range/Units 18:30 18:34 WBC (4.5-11.0) K/mcL RBC (4.63-6.08) M/mcL Hgb (13.7-17.5) g/dL Hct (40.1-51.0) % POC Hct 35.0 L (41-55) MCV (80.0-100.0) fL MCH (26.0-34.0) pg MCHC (31.0-36.0) g/dL RDW (11.5-14.5) % Plt Count (140-440) K/mcL MPV (8.8-12.5) fL Immature Gran % (Auto) (0.0-0.5) % Neut % (Auto) (38.0-78.0) % Lymph % (Auto) (15.5-49.0) % Bowie % (Auto) (1.0-12.0) % Eos % (Auto) (0.0-7.0) % Baso % (Auto) (0.0-2.0) % Lymph # (Auto) (1.50-4.80) K/mcL Bowie # (Auto) (0.10-0.90) K/mcL Eos # (Auto) (0.00-0.70) K/mcL Baso # (Auto) (0.00-0.30) K/mcL Immature Gran # (0.00-0.05) K/mcl Absolute Neutrophils (1.80-8.00) K/mcL POC VBG pH 7.58 H (7.32-7.42) POC VBG pCO2 at Temp 52.7 H (41-51) POC VBG pO2 35 (25-40) POC VBG HCO3 49.4 H* (24-28) POC VBG Total CO2 > 50.0 H* (25-29) POC Venous O2 Sat 75.0 H (40-70) POC VBG Base Excess 28.0 H* (-2-2) VBG Lactic Acid 4.3 H* (0.5-2) POC Sodium 118 L* (133-145) Sodium (133-145) mmol/L POC Potassium 3.4 (3.3-5.1) Potassium (3.3-5.1) mmol/L POC Chloride < 65 L (96-108) Chloride (96-108) mmol/L Carbon Dioxide (22-30) mmol/L POC Total CO2 46.0 H* (22-30) Anion Gap (8.0-16.0) POC BUN 51 H (6-20) BUN (6-20) mg/dL Creatinine (0.7-1.2) mg/dL POC Creatinine 3.9 H (0.6-1.2) GFR Calculation Glucose (70-105) mg/dL POC Glucose > 700 H* (70-105) Calcium (8.6-10.4) mg/dL POC WB Ioniz Calcium 0.79 L (1.16-1.32) Total Bilirubin (0.1-1.0) mg/dL AST (<40) U/L ALT (<40) U/L Alkaline Phosphatase (39-117) U/L Total Protein (5.9-8.4) gm/dL Albumin (3.2-5.2) gm/dL Globulin (2.2-3.7) gm/dL Albumin/Globulin Ratio (1.0-2.3) Beta-Hydroxybutyrate (<0.27) mmol/L Discharge Plan Patient/Caregiver Discharge Instructions Pt seen by DEVELOPER ARCHITECT/PA only: No Clinical Impression: DKA (diabetic ketoacidosis) Patient Disposition: Still a Patient Follow up with: Flo Peña MD [Primary Care Provider] - Prescriptions: No Action (DME) insulin syringes (disposable) 1 mL syringe See Rx Instructions .Route Qty: 500 0RF Rx Instructions: use for insulin three times daily sucralfate [Carafate] 1 gram tablet 1 g PO BID Qty: 70 0RF venlafaxine 75 mg capsule,extended release 24hr 225 mg PO QAM Qty: 90 5RF mirtazapine 15 mg tablet,disintegrating 15 mg PO HS Qty: 90 0RF ondansetron 4 mg tablet,disintegrating 4 mg PO Q8H Qty: 120 0RF fluoxetine 20 mg capsule 20 mg PO QDAY Qty: 90 1RF promethazine [Promethegan] 25 mg suppository 25 mg NH Q6H PRN (Reason: nausea and vomiting) Qty: 12 0RF Baqsimi 3 mg/actuation spray,non-aerosol 3 mg intranasal ONCE PRN (Reason: hypoglycemia) Qty: 1 0RF Rx Instructions: 1 spray intranasal as needed famotidine 20 mg tablet 20 mg PO BID Qty: 90 1RF (DME) Dexcom sensor & monitor See Rx Instructions .Route .MEDSUPPLY Qty: 1 0RF Rx Instructions: As directed doxycycline hyclate 100 mg tablet 100 mg PO BID 5 Days Qty: 10 0RF (DME) blood-glucose meter Misc See Rx Instructions .Route Qty: 1 3RF Rx Instructions: use to test blood sugar 5 times daily (DME) Blood Glucose Test Strip See Rx Instructions .ROUTE .MEDSUPPLY Qty: 500 3RF Rx Instructions: use to test blood sugar 5 times daily (DME) lancets Misc See Rx Instructions .Route Qty: 500 3RF Rx Instructions: use to test blood sugar 5 times daily clonidine 0.3 mg/24 hr Patch Weekly 1 patch TD Fr@1000 Qty: 4 2RF ropinirole 0.25 mg Tablet 0.5 mg PO HSP PRN (Reason: restless leg) Qty: 10 2RF diltiazem HCl 30 mg Tablet 60 mg PO Q8 Qty: 90 2RF diphenhydramine HCl [EZ Nite Sleep] 25 mg capsule 25 mg PO QHS PRN (Reason: insomnia) Qty: 30 1RF insulin aspart U-100 [Novolog U-100 Insulin aspart] 100 unit/mL solution See Rx Instructions subcut TID Qty: 60 1RF Rx Instructions: subcut three times daily with meals; Moderate Dose Scale Blood Sugar (mg/dL), Units Insulin 70-130, 0 units 131-180, 4 units 181-240, 8 units 241-300, 10 units 301-350, 12 units 351-400, 16 units >400, 20 units and call MD carvedilol 6.25 mg tablet 1 tab PO BID
[2022-08-12] MEDS ORDERED: PROMETHAZINE 25 MG/ML VIAL IV ONE (19:32)
[2022-08-12 19:33] LABS: Beta Hydroxybutyrate 4.96 mmol/L (<0.27)
[2022-08-12 19:37] LABS: ALT/SGPT 12 U/L (<40); AST/SGOT 12 U/L (<40); Albumin 3.7 gm/dL (3.2-5.2); Albumin/Globulin Ratio 1.1 (1.0-2.3); Alkaline Phosphatase 190 U/L (39-117); Bilirubin,Total 0.3 mg/dL (0.1-1.0); Blood Urea Nitrogen 58 mg/dL (6-20); Calcium 8.4 mg/dL (8.6-10.4); Carbon Dioxide 41 mmol/L (22-30); Chloride 61 mmol/L (96-108); Globulin 3.5 gm/dL (2.2-3.7); Glomerular Filtration Rate 21; Glucose 948 mg/dL (70-105)
[2022-08-12] MEDS ORDERED: INSULIN REGULAR, HUMAN 50 UNIT in 0.9 % SODIUM CHLORIDE 99.5 ML IV ONE (19:52)
--- NOTE | 2022-08-12 20:37 | Internal Med History&Physical ---
HPI History of Present Illness Patient information: Note initiated : 08/12/22 at 8:25 pm Service Date, if different from initiated Date: [] Patient: Mauri Levine a 36 y/o M admitted on for HI BG. Chief Complaint: [N/V] Chief complaint: N/V History of present illness: Mr. Levine is a 36 year old M with a past medical history significant for type 1 diabetes mellitus with noncompliance, CKD stage IV, hypertension, and underlying psych disorder who presents to the hospital once again with nausea, vomiting and severe hyperglycemia with a blood sugar greater than 900. The patient normally wears a continuous glucose monitor and states that his insulin pump became dysfunctional yesterday. He attempted to manually check his blood sugars and give himself insulin however with no improvement. It is unclear whether the patient is being forthright. He states that he continued to clinically deteriorate over 24 hours. This morning he tried to eat chicken and also however was unable to keep it down. On presentation he was hemodynamically stable and afebrile. He was found to have severe electrolyte derangements in the setting of diabetic ketoacidosis. The hospitalist service was asked admit the patient to the ICU. Of note, the patient has been hospitalized multiple times in the setting of noncompliance. He was recently discharged on July 27. At this time, he is followed closely with nephrology as he is on the verge of hemodialysis. The patient also has a port in place as he frequently requires IV hydration due to poor p.o. intake at times. The patient does have a history of gastroparesis. Review of Systems All systems: reviewed and no additional remarkable complaints except as stated Constitutional Constitutional: Present as per HPI EENT Eyes: Present as per HPI; Absent blurry vision Cardiovascular Cardiovascular: Present as per HPI; Absent chest pain, dyspnea, dyspnea on exertion, leg edema or palpatations Respiratory Respiratory: Present as per HPI; Absent cough, dyspnea, dyspnea on exertion, wheezing or stridor Gastrointestinal Gastrointestinal: Present as per HPI; Absent abdominal pain, diarrhea, dysphagia, hematemesis, melena, nausea or vomiting Musculoskeletal Musculoskeletal: Present as per HPI; Absent joint swelling, limited range of motion, muscle cramps, muscle weakness or myalgias Integumentary Integumentary: Present as per HPI; Absent erythema, new lesions, rash or wounds Neurological Neurological: Present as per HPI; Absent abnormal gait, behavioral changes, focal weakness, headache(s), loss of vision, numbness, sensory deficit or syncope Endocrine Endocrine: Absent change in body appearance, fatigue or heat intolerance Hematologic/Lymphatic Hematologic/Lymphatic: Present as per HPI PFSH PFSH All Active Problems (Updated 08/12/22 @ 20:32 by Jorge Huffman MD) Testosterone deficiency (Chronic) Nausea and vomiting (Chronic) GERD (gastroesophageal reflux disease) (Chronic) Other hammer toe(s) (acquired), left foot (Chronic) Hypertension, essential (Chronic) Hyperlipidemia (Chronic) History of neuroleptic malignant syndrome (Chronic) Dehydration (Chronic) Drug-induced nausea and vomiting (Acute) Uncontrolled type 1 diabetes mellitus with diabetic nephropathy, with long-term current use of insulin (Chronic) Cyclic vomiting syndrome (Chronic) Type 1 diabetes mellitus with stage 3 chronic kidney disease and hypertension (Chronic) Marijuana use, continuous (Chronic) CKD (chronic kidney disease) (Acute) Nephrotic range proteinuria (Chronic) Controlled type 1 diabetes mellitus with chronic kidney disease (Chronic) Port-A-Cath in place (Acute) Diabetic gastroparesis associated with type 1 diabetes mellitus (Chronic) Diabetic neuropathy associated with type 1 diabetes mellitus (Chronic) Diabetic retinopathy associated with type 1 diabetes mellitus (Chronic) Anxiety (Chronic) Back pain (Chronic) Physical deconditioning (Chronic) Malnutrition (Chronic) Acute dehydration (Acute) Acute hypokalemia (Acute) QT prolongation (Acute) Dehydration (Acute) No-show for appointment (Acute) Intractable cyclical vomiting with nausea (Acute) Diabetic gastroparesis (Chronic) ROSALIO (acute kidney injury) (Acute) Hyperglycemia (Acute) Dehydration (Acute) Major depressive disorder, recurrent (Chronic) Generalized anxiety disorder (Chronic) Trauma and stressor-related disorder (Chronic) Diabetic gastroparesis (Acute) Nausea & vomiting (Acute) Acute dehydration (Acute) Ketosis (Acute) Uncontrolled diabetes mellitus (Acute) DKA (diabetic ketoacidosis) (Acute) Hyperosmolar hyperglycemic state (HHS) (Acute) Diabetic gastroparesis (Acute) Metabolic alkalosis (Acute) Stage 2 acute kidney injury (Acute) Hyponatremia (Acute) DKA (diabetic ketoacidosis) (Acute) Has multiple sexual partners (Acute) Hyperosmolar hyperglycemic state (HHS) (Acute) Acute hypokalemia (Acute) ROSALIO (acute kidney injury) (Acute) Nausea & vomiting (Acute) Hypochloremia (Acute) Alkalosis (Acute) Acute renal failure superimposed on stage 3a chronic kidney disease (Acute) Metabolic alkalosis (Acute) Altered mental status (Acute) Depression (Acute) Acute hyperglycemia (Acute) Nausea & vomiting (Acute) Seizures (Acute) Abnormal CT of brain (Acute) Sepsis (Acute) Hyponatremia (Acute) Pneumonia (Acute) Acute renal failure (Acute) Hypokalemia (Acute) Diabetic gastroparesis (Acute) Diabetic gastroparesis (Acute) CKD stage G3b/A3, GFR 30-44 and albumin creatinine ratio >300 mg/g (Acute) Renal failure (ARF), acute on chronic (Acute) ROSALIO (acute kidney injury) (Acute) Acute hypokalemia (Acute) Acidosis (Acute) Acid-base disorder, mixed (Acute) Acute worsening of stage 4 chronic kidney disease (Acute) Type 1 diabetes mellitus with hyperosmolar hyperglycemic state (HHS) (Acute) Acute hypokalemia (Acute) Nausea & vomiting (Acute) Acute respiratory failure with hypoxia (Acute) Type 1 diabetes mellitus with hyperosmolar hyperglycemic state (HHS) (Acute) Anemia associated with stage 4 chronic renal failure (Acute) DKA, type 1, not at goal (Acute) Metabolic acidosis with respiratory alkalosis (Acute) Gastroparesis (Acute) Tetrahydrocannabinol (THC) use disorder, moderate, dependence (Chronic) Binge eating disorder (Chronic) CKD stage 4 due to type 1 diabetes mellitus (Acute) Diabetic keto-acidosis (Acute) Mental health problem (Chronic) Toxic metabolic encephalopathy (Acute) Munchausen syndrome (Acute) DKA (diabetic ketoacidosis) (Acute) Cutaneous abscess of right axilla (Acute) Medical History Abdominal pain, epigastric Abnormal CT of brain Altered mental status Anxiety Back pain Chronic ulcer of left foot Coffee ground emesis Cutaneous abscess of right axilla Depression Diabetes mellitus type I Age 12, With foot ulcer Diabetic gastroparesis associated with type 1 diabetes mellitus Diabetic neuropathy associated with type 1 diabetes mellitus Diabetic peripheral neuropathy Diabetic retinopathy associated with type 1 diabetes mellitus DKA, type 1 Esophageal candidiasis Gastroenteritis Gastroparesis due to DM GERD (gastroesophageal reflux disease) Hallux valgus (acquired), left foot Has multiple sexual partners History of neuroleptic malignant syndrome To compazine (prochlorperazine). Tolerates promethazine without issue Hyperlipidemia Hypertension, essential labile due to unpredictable Rx absorption with gastroparesis and propensity for dehydration Hold captopril if persistent vomiting occurs or bp less than 120/80 stop coreg and nifedipine Continue clonidine patch#1 Labetalol IV PRN Hypokalemia Connie-Byrne tear Malnutrition Marijuana use, continuous Nausea and vomiting Non-pressure chronic ulcer of other part of left foot limited to breakdown of skin Other hammer toe(s) (acquired), left foot Peripheral autonomic neuropathy due to DM Physical deconditioning Seizures Sepsis Tardive dyskinesia due to metoclopramide (Reglan) Testosterone deficiency Surgical History History of hand surgery Finger repair History of toe surgery left hallux Family History Mother Atrial fibrillation Essential hypertension Sister Malignant neoplasm of female breast Maternal Grandfather Malignant neoplasm of colon Recorded 11/12/10 Father Essential hypertension Other Adopted DKA, type 1 Social History adopted: Yes household members: family housing: other details: 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 marital status: single occupational status: disabled occupation: On disability since 2016 physical activity: walking smoking status: Unknown if ever smoked alcohol intake frequency: former alcohol drinker substance use type: former substance user seatbelt use: always MEDS/ALLERGIES Home Medications and Allergies Home Medications Medication Instructions Recorded Confirmed Type Dexcom sensor & monitor #1 ea 08/27/21 08/05/22 Rx blood sugar diagnostic (Blood #500 ea 09/10/21 08/05/22 Rx Glucose Test strips) blood-glucose meter #1 ea 09/10/21 08/05/22 Rx lancets #500 ea 09/10/21 08/05/22 Rx insulin syringes (disposable) 1 mL #500 ea 01/12/22 08/05/22 Rx sucralfate 1 gram tablet (Carafate) 1 g PO BID #70 tabs 05/28/22 08/05/22 Rx mirtazapine 15 mg disintegrating 15 mg PO HS #90 tabs 06/08/22 08/05/22 Rx tablet venlafaxine 75 mg capsule,extended 225 mg PO QAM #90 caps 06/08/22 08/05/22 Rx release 24 hr clonidine 0.3 mg/24 hr weekly 1 patch TD Fr@1000 #4 ea 06/25/22 08/05/22 Rx transdermal patch diltiazem HCl 30 mg tablet 60 mg PO Q8 #90 tabs 06/25/22 08/05/22 Rx diphenhydramine HCl 25 mg capsule 25 mg PO QHS PRN insomnia #30 caps 06/25/22 08/05/22 Rx (EZ Nite Sleep) ropinirole 0.25 mg tablet 0.5 mg PO HSP PRN restless leg #10 06/25/22 08/05/22 Rx tabs insulin aspart U-100 100 unit/mL See Rx Instructions subcut TID #60 06/26/22 08/05/22 Rx subcutaneous solution (Novolog mL U-100 Insulin aspart) ondansetron 4 mg disintegrating 4 mg PO Q8H cyclic vomiting #120 07/20/22 08/05/22 Rx tablet tabs carvedilol 6.25 mg tablet 1 tab PO BID 07/24/22 08/05/22 History fluoxetine 20 mg capsule 20 mg PO QDAY #90 caps 08/03/22 08/05/22 Rx promethazine 25 mg rectal 25 mg MT Q6H PRN nausea and 08/03/22 08/05/22 Rx suppository (Promethegan) vomiting #12 ea doxycycline hyclate 100 mg tablet 100 mg PO BID 5 days #10 tabs 08/05/22 08/05/22 Rx famotidine 20 mg tablet 20 mg PO BID #90 tabs 08/10/22 Rx glucagon 3 mg/actuation nasal 3 mg intranasal ONCE PRN 08/10/22 Rx spray (Baqsimi) hypoglycemia #1 ea Allergies Allergy/AdvReac Type Severity Reaction Status Date / Time NSAIDS (Non-Steroidal Allergy Unknown Unknown Verified 08/12/22 17:38 Anti-Inflamma metoclopramide [From Reglan] AdvReac Mild Agitated Verified 08/12/22 17:38 prochlorperazine AdvReac Mild "My whole Verified 08/12/22 17:38 [From Compazine] body freaks out." silver AdvReac Mild dystonic Verified 08/12/22 17:38 IV iodine contrast Allergy Unknown Unknown Uncoded 08/05/22 12:55 EXAM Constitutional Vitals: Temp Pulse Resp BP Pulse Ox O2 Del Method O2 Flow Rate 96.7 F L 100 H 20 185/89 100 Nasal Cannula 2 08/12/22 17:35 08/12/22 20:07 08/12/22 17:35 08/12/22 19:31 08/12/22 20:07 08/12/22 19:29 08/12/22 19:29 General appearance: average body habitus Head Head exam: Present atraumatic, normal inspection and normocephalic Eye Eye exam: Present EOMI, normal appearance and PERRL; Absent conjunctival injection ENT ENT exam: Present mucous membranes dry and normal exam Neck Neck exam: Present full ROM; Absent lymphadenopathy Respiratory Respiratory exam: Present normal respiratory exam and CTAB; Absent decreased breath sounds, respiratory distress or wheezes Cardiovascular Cardiovascular exam: Present RRR and tachycardia; Absent JVD GI/Abdominal GI/Abdominal exam: Present normal bowel sounds and soft; Absent diminished bowel sounds, distended, guarding, mass, rebound or tenderness Neurological Exam Neurological exam: Present alert, CN II-XII intact and oriented X3 Psychiatric Psychiatric exam: Present normal affect and normal mood Skin Skin exam: Present intact and warm; Absent erythema, pallor, petechiae or rash DATA Data Completed and Pending Labs: Labs from last 24 hours 08/12/22 08/12/22 08/12/22 18:34 18:30 18:01 WBC RBC Hgb Hct POC Hct 35.0 L MCV MCH MCHC RDW Plt Count MPV Immature Gran % (Auto) Neut % (Auto) Lymph % (Auto) [place] % (Auto) Eos % (Auto) Baso % (Auto) Lymph # (Auto) [place] # (Auto) Eos # (Auto) Baso # (Auto) Immature Gran # Absolute Neutrophils POC VBG pH 7.58 H 7.70 H* POC VBG pCO2 at Temp 52.7 H 40.1 L POC VBG pO2 35 29 POC VBG HCO3 49.4 H* 49.3 H* POC VBG Total CO2 > 50.0 H* > 50.0 H* POC Venous O2 Sat 75.0 H 71.0 H POC VBG Base Excess 28.0 H* 29.0 H* VBG Lactic Acid 4.3 H* 4.0 H* POC Sodium 118 L* Sodium POC Potassium 3.4 Potassium POC Chloride < 65 L Chloride Carbon Dioxide POC Total CO2 46.0 H* Anion Gap POC BUN 51 H BUN Creatinine POC Creatinine 3.9 H GFR Calculation Glucose POC Glucose > 700 H* Calcium POC WB Ioniz Calcium 0.79 L Total Bilirubin AST ALT Alkaline Phosphatase Total Protein Albumin Globulin Albumin/Globulin Ratio Beta-Hydroxybutyrate 08/12/22 08/12/22 17:55 17:55 WBC 7.4 RBC 3.91 L Hgb 10.4 L Hct 31.5 L POC Hct MCV 80.6 MCH 26.6 MCHC 33.0 RDW 14.6 H Plt Count 421 MPV 10.8 Immature Gran % (Auto) 0.3 Neut % (Auto) 70.6 Lymph % (Auto) 16.4 [place] % (Auto) 11.9 Eos % (Auto) 0 Baso % (Auto) 0.8 Lymph # (Auto) 1.21 L [place] # (Auto) 0.88 Eos # (Auto) 0 Baso # (Auto) 0.06 Immature Gran # 0.02 Absolute Neutrophils 5.20 POC VBG pH POC VBG pCO2 at Temp POC VBG pO2 POC VBG HCO3 POC VBG Total CO2 POC Venous O2 Sat POC VBG Base Excess VBG Lactic Acid POC Sodium Sodium 124 L POC Potassium Potassium 3.6 POC Chloride Chloride 61 L Carbon Dioxide 41 H* POC Total CO2 Anion Gap 22.0 H POC BUN BUN 58 H Creatinine 3.5 H POC Creatinine GFR Calculation 21 Glucose 948 H* POC Glucose Calcium 8.4 L POC WB Ioniz Calcium Total Bilirubin 0.3 AST 12 ALT 12 Alkaline Phosphatase 190 H Total Protein 7.2 Albumin 3.7 Globulin 3.5 Albumin/Globulin Ratio 1.1 Beta-Hydroxybutyrate 4.96 H A/P Assessment and plan (1) Uncontrolled type 1 diabetes mellitus with diabetic nephropathy, with long- term current use of insulin: Status: Chronic (2) CKD (chronic kidney disease): Status: Acute (3) Diabetic gastroparesis associated with type 1 diabetes mellitus: Status: Chronic (4) DKA (diabetic ketoacidosis): Status: Acute Narrative A/P Narrative: #DKA -Insulin gtt as BS 948, elevated beta-hydroxybutyrate and AG -Aggressive IVF resuscitation -Once AG closes (currently 22), can d/c gtt -If AG remains elevated, and BS <250, can start D5W -Monitor and replete K, will check BMP q6h #Metabolic alkalosis -likely due to contraction alkalosis and compensatory for respiratory acidosis -HCO3 >40 #Respiratory acidosis -due to somnolence and decreased RR #Lactic acidosis -LA 4.3, tx ax above #CDK stage IV -Cr 3.5, EGFR 21 -hold nephrotoxic agents, renally dose meds #Psych -Patient's family actively in search for AFH -Behavioral health referral Time Spent With Patient Time: Total time spent is greater than 50% in coordination of care (as documented) at patient's floor/unit and/or counseling patient: Initial: Total time with patient: 75 - 90 minutes Critical Care Time: Yes
[2022-08-12] MEDS ORDERED: ACETAMINOPHEN 325 MG TABLET PO PRN (21:49)
[2022-08-12] MEDS ORDERED: INSULIN REGULAR, HUMAN 1 UNIT/0.01 ML UNIT IV PRN (22:06)
[2022-08-12] MEDS ORDERED: INSULIN REGULAR, HUMAN 1 UNIT/0.01 ML UNIT ONE (22:12)
[2022-08-12] MEDS: ONDANSETRON 4 MG/2 ML VIAL IV PRN (22:15)
[2022-08-12] MEDS: 0.9 % SODIUM CHLORIDE 10 ML SYRINGE IV SCH (22:25)
[2022-08-12] MEDS ORDERED: POTASSIUM CHLORIDE 40 MEQ in DEXTROSE 5% IN WATER 500 ML IV ONE (22:29)
[2022-08-12] MEDS ORDERED: POTASSIUM CHLORIDE 20 MEQ/10 ML VIAL IV ONE (22:35)
[2022-08-12] MEDS: DEXTROSE 5%-NS 1,000 ML IV SCH (22:40)
[2022-08-12] MEDS: 0.9 % SODIUM CHLORIDE 1,000 ML IV SCH (22:40)
[2022-08-12] MEDS: PROMETHAZINE 25 MG/ML VIAL IV PRN (23:11)
[2022-08-12] MEDS: HEPARIN 5,000 UNIT/ML VIAL SQ SCH (23:13)
[2022-08-12 23:31] LABS: Blood Urea Nitrogen 57 mg/dL (6-20); Calcium 8.3 mg/dL (8.6-10.4); Carbon Dioxide 45 mmol/L (22-30); Chloride 74 mmol/L (96-108); Glomerular Filtration Rate 21; Glucose 553 mg/dL (70-105)
[2022-08-13] MEDS: DEXTROSE 5%-NS 1,000 ML IV SCH ×3 (01:05→08:10)
[2022-08-13] MEDS: PROMETHAZINE 25 MG/ML VIAL IV PRN (03:16)
[2022-08-13 04:15] LABS: Amphetamine Screen,Urine None detected; Barbiturate Screen,Urine None detected; Benzodiazepines Screen,Urine None detected; Cannabinoid Screen,Urine Suspect Positive; Cocaine Screen,Urine None detected; Opiate Screen,Urine None detected; Oxycodone, Urine Screen None detected; Phencyclidine Screen,Urine None detected
[2022-08-13] MEDS: ONDANSETRON 4 MG/2 ML VIAL IV PRN ×2 (04:33→08:52)
[2022-08-13] MEDS: 0.9 % SODIUM CHLORIDE 1,000 ML IV SCH (05:05)
[2022-08-13] MEDS: 0.9 % SODIUM CHLORIDE 10 ML SYRINGE IV SCH ×3 (05:05→21:04)
[2022-08-13 06:22] LABS: Basophils # (Auto) 0.07 K/mcL (0.00-0.30); Basophils % (Auto) 0.6 % (0.0-2.0); Eosinophils # (Auto) 0.03 K/mcL (0.00-0.70); Eosinophils % (Auto) 0.2 % (0.0-7.0); Hematocrit 29.7 % (40.1-51.0); Hemoglobin 9.9 g/dL (13.7-17.5); Lymphocytes # (Auto) 2.25 K/mcL (1.50-4.80); Lymphocytes % (Auto) 18.6 % (15.5-49.0); Mean Cell Volume 80.9 fL (80.0-100.0); Mean Corpuscular HGB Conc 33.3 g/dL (31.0-36.0); Mean Platelet Volume 10.2 fL (8.8-12.5); Monocytes # (Auto) 1.19 K/mcL (0.10-0.90); Monocytes % (Auto) 9.9 % (1.0-12.0); Neutrophils % (Auto) 70.2 % (38.0-78.0); Platelet Count 385 K/mcL (140-440); RBC 3.67 M/mcL (4.63-6.08); Red Cell Distribution Width 14.7 % (11.5-14.5); WBC 12.1 K/mcL (4.5-11.0)
[2022-08-13 06:47] LABS: ALT/SGPT 11 U/L (<40); AST/SGOT 12 U/L (<40); Albumin 3.6 gm/dL (3.2-5.2); Albumin/Globulin Ratio 1.3 (1.0-2.3); Alkaline Phosphatase 155 U/L (39-117); Bilirubin,Direct < 0.2 mg/dL (0-0.3); Bilirubin,Total 0.2 mg/dL (0.1-1.0); Blood Urea Nitrogen 48 mg/dL (6-20); Calcium 8.1 mg/dL (8.6-10.4); Carbon Dioxide 44 mmol/L (22-30); Chloride 88 mmol/L (96-108); Globulin 2.8 gm/dL (2.2-3.7); Glomerular Filtration Rate 21; Glucose 160 mg/dL (70-105); Lactate Dehydrogenase 215 U/L (135-225); Triglycerides 114 mg/dL (<150); Uric Acid 8.5 mg/dL (2.5-8.0)
[2022-08-13] MEDS ORDERED: DEXTROSE 50% 50 ML VIAL IV PRN (07:56)
[2022-08-13] MEDS ORDERED: DEXTROSE 31 GM ORAL.SUSP PO PRN (07:56)
[2022-08-13] MEDS: INSULIN GLARGINE, HUMAN 1 UNIT/0.01 ML SQ SCH (08:09)
[2022-08-13] MEDS: HEPARIN 5,000 UNIT/ML VIAL SQ SCH ×2 (08:09→21:03)
[2022-08-13] MEDS ORDERED: cloNIDine TTS 3 1 PATCH PATCH TD SCH (10:00)
[2022-08-13] MEDS: INSULIN LISPRO 1 UNIT/0.01 ML UNIT SQ SCH ×3 (11:04→21:03)
[2022-08-13] MEDS ORDERED: hydrALAZINE 20 MG/ML VIAL IV PRN (11:05)
[2022-08-13] MEDS ORDERED: rOPINIRole 0.25 MG TABLET PO PRN (11:05)
--- NOTE | 2022-08-13 11:08 | Internal Med Progress Note ---
SUBJECTIVE Subjective Patient information: Note initiated : 08/13/22 at 11:07 am Service Date, if different from initiated Date: [] Patient: Mauri Levine 36 y/o M admitted on 08/12/22 for HI BG/DKA. Chief Complaint: [Nausea and vomiting] Principal diagnosis: DKA Interval history: The patient is calm and cooperative. He states that he is feeling better. Discussed the case with the RN. Constitutional Vitals: Vital Signs Temp Pulse Resp BP Pulse Ox O2 Del Method O2 Flow Rate 98.2 F 89 19 165/90 96 Room Air 2 08/13/22 07:00 08/13/22 10:00 08/13/22 10:00 08/13/22 10:00 08/13/22 10:00 08/13/22 07:25 08/13/22 06:34 Period Temp Pulse Resp BP Sys/Menard Pulse Ox O2 Del Method O2 Flow Rate Last 24 Hr 96.7 F-98.8 F 88-100 13-33 91-185/61-97 91-100 Nasal Cannula- Room Air 2-2 Intake and Output 08/12/22 08/13/22 08/13/22 19:59 03:59 11:59 Intake Total 2197 1085 Output Total 800 800 Balance 1397 285 Weight 70.307 kg 71.469 kg Intake & Output: Intake & Output 08/12/22 08/13/22 08/13/22 19:59 03:59 11:59 Intake Total 2197 1085 Output Total 800 800 Balance 1397 285 Weight 70.307 kg 71.469 kg Intake: IV 2197 1085 Sodium Chloride 0.9% 1,000 ml @ 1363 150 mls/hr IV .Q6H40M [facility] Rx#: [id number] Dextrose 5%-Ns IV Solution 1, 1055 000 ml @ 150 mls/hr IV .Q6H40M [facility] Rx#:[id number] HumuLIN R 50 UNIT In Sodium 54 30 Chloride 0.9% 99.5 ml @ 7 UNIT/ HR 14 mls/hr IV ONCE ONE Rx#: [id number] Potassium Chloride 20 Meq In 260 Dextrose 5% in Water 250 ml @ 130 mls/hr IV ONCE ONE Rx#: [id number] Potassium Chloride 40 Meq In 520 Dextrose 5% in Water 500 ml @ 130 mls/hr IV ONCE ONE Rx#: [id number] Oral 0 0 Output: Void Amount 650 800 Emesis 150 Other: Urine Appearance Clear Urine Color Pale Yellow Pale Urine Odor Normal # of times incontinent of 1 Bowels Head Head exam: Present atraumatic and normal inspection Eye Eye exam: Present normal appearance ENT ENT exam: Present mucous membranes moist, normal exam and normal external ear exam Neck Neck exam: Present normal inspection Respiratory Respiratory exam: Present normal respiratory exam Cardiovascular Cardiovascular exam: Present normal rate and rhythm GI/Abdominal GI/Abdominal exam: Present normal bowel sounds Back Exam Back exam: Present normal inspection Neurological Exam Neurological exam: Present alert and oriented X3 Skin Skin exam: Present intact and warm OBJ DATA Labs 08/13/22 05:14 08/13/22 05:14 Labs: Abnormal Lab Results 08/13/22 08/13/22 08/13/22 05:14 05:14 03:27 WBC 12.1 H RBC 3.67 L Hgb 9.9 L Hct 29.7 L POC Hct RDW 14.7 H Lymph # (Auto) [place] # (Auto) 1.19 H Immature Gran # 0.06 H Absolute Neutrophils 8.47 H POC VBG pH POC VBG pCO2 at Temp POC VBG HCO3 POC VBG Total CO2 POC Venous O2 Sat POC VBG Base Excess VBG Lactic Acid POC Sodium Sodium POC Chloride Chloride 88 L Carbon Dioxide 44 H* POC Total CO2 Anion Gap 7.0 L POC BUN BUN 48 H Creatinine 3.5 H POC Creatinine Glucose 160 H POC Glucose Uric Acid 8.5 H Calcium 8.1 L POC WB Ioniz Calcium Magnesium 4.2 H* Alkaline Phosphatase 155 H Beta-Hydroxybutyrate U Marijuana (THC) Screen Suspect positive A 08/12/22 08/12/22 08/12/22 22:23 22:22 18:34 WBC RBC Hgb Hct POC Hct 35.0 L RDW Lymph # (Auto) [place] # (Auto) Immature Gran # Absolute Neutrophils POC VBG pH POC VBG pCO2 at Temp POC VBG HCO3 POC VBG Total CO2 POC Venous O2 Sat POC VBG Base Excess VBG Lactic Acid 3.5 H POC Sodium 118 L* Sodium 130 L POC Chloride < 65 L Chloride 74 L Carbon Dioxide 45 H* POC Total CO2 46.0 H* Anion Gap POC BUN 51 H BUN 57 H Creatinine 3.6 H POC Creatinine 3.9 H Glucose 553 H* POC Glucose > 700 H* Uric Acid Calcium 8.3 L POC WB Ioniz Calcium 0.79 L Magnesium Alkaline Phosphatase Beta-Hydroxybutyrate U Marijuana (THC) Screen 08/12/22 08/12/22 08/12/22 18:30 18:01 17:55 WBC RBC Hgb Hct POC Hct RDW Lymph # (Auto) [place] # (Auto) Immature Gran # Absolute Neutrophils POC VBG pH 7.58 H 7.70 H* POC VBG pCO2 at Temp 52.7 H 40.1 L POC VBG HCO3 49.4 H* 49.3 H* POC VBG Total CO2 > 50.0 H* > 50.0 H* POC Venous O2 Sat 75.0 H 71.0 H POC VBG Base Excess 28.0 H* 29.0 H* VBG Lactic Acid 4.3 H* 4.0 H* POC Sodium Sodium 124 L POC Chloride Chloride 61 L Carbon Dioxide 41 H* POC Total CO2 Anion Gap 22.0 H POC BUN BUN 58 H Creatinine 3.5 H POC Creatinine Glucose 948 H* POC Glucose Uric Acid Calcium 8.4 L POC WB Ioniz Calcium Magnesium Alkaline Phosphatase 190 H Beta-Hydroxybutyrate 4.96 H U Marijuana (THC) Screen 08/12/22 17:55 WBC RBC 3.91 L Hgb 10.4 L Hct 31.5 L POC Hct RDW 14.6 H Lymph # (Auto) 1.21 L [place] # (Auto) Immature Gran # Absolute Neutrophils POC VBG pH POC VBG pCO2 at Temp POC VBG HCO3 POC VBG Total CO2 POC Venous O2 Sat POC VBG Base Excess VBG Lactic Acid POC Sodium Sodium POC Chloride Chloride Carbon Dioxide POC Total CO2 Anion Gap POC BUN BUN Creatinine POC Creatinine Glucose POC Glucose Uric Acid Calcium POC WB Ioniz Calcium Magnesium Alkaline Phosphatase Beta-Hydroxybutyrate U Marijuana (THC) Screen Meds: Medications Acetaminophen (Acetaminophen 325 Mg Tablet) 650 mg PO Q4-6HP PRN; Protocol PRN Reason: Per Pain Protocol/Fever > 101 Carvedilol (Carvedilol 6.25 Mg Tablet) mg PO BID [facility] Clonidine HCl (Clonidine Tts 3 1 Patch Patch) 1 patch TD Fr@1000 [facility] Dextrose (Dextrose 50% 50 Ml Vial) 0 ml IV UD PRN PRN Reason: Per Sliding Scale Diagnostic Test (Pha) (Accu-Chek 1 Each Strip) 1 each FS ACHS [facility] Last Admin: 08/13/22 11:03 Dose: 1 each Diltiazem HCl (Diltiazem 30 Mg Tablet) 60 mg PO Q8 [facility] Fluoxetine HCl (Fluoxetine Hcl 20 Mg Capsule) 20 mg PO QDAY [facility] Glucose (Dextrose 31 Gm Oral.Susp) 15 gm PO PRN PRN PRN Reason: Hypoglycemia Heparin Sodium (Porcine) (Heparin 5,000 Unit/Ml Vial) 5,000 unit SQ Q12 [facility] Last Admin: 08/13/22 08:09 Dose: 5,000 unit Hydralazine HCl (Hydralazine 20 Mg/Ml Vial) 10 mg IV Q4-6HP PRN PRN Reason: Hypertension SBP >180mmHg Insulin Human Regular 50 unit/ (Sodium Chloride) 100 mls @ 0 mls/hr IV DUR [facility]; Protocol Potassium Chloride 40 meq/ (Dextrose) 520 mls @ 130 mls/hr IV ONCE ONE Stop: 08/13/22 15:04 Insulin Glargine (Insulin Glargine, Human 1 Unit/0.01 Ml) 20 unit SQ DAILY [facility] Last Admin: 08/13/22 08:09 Dose: 20 units Insulin Human Lispro (Insulin Lispro 1 Unit/0.01 Ml Unit) 0 unit SQ [facility]; P rotocol Last Admin: 08/13/22 11:04 Dose: 4 units Non-Formulary Medication (Mirtazapine) 15 mg PO HS [facility] Ondansetron HCl (Ondansetron 4 Mg/2 Ml Vial) 4 mg IV Q4-6HP PRN; Protocol PRN Reason: Nausea And Vomiting Last Admin: 08/13/22 08:52 Dose: 4 mg Promethazine HCl (Promethazine 25 Mg/Ml Vial) 12.5 mg IV Q4-6HP PRN; Protocol PRN Reason: Nausea And Vomiting Last Admin: 08/13/22 03:16 Dose: 12.5 mg Ropinirole HCl (Ropinirole 0.25 Mg Tablet) 0.5 mg PO HSP PRN PRN Reason: restless leg Sodium Chloride (0.9 % Sodium Chloride 10 Ml Syringe) 10 ml IV Q8 [facility] Last Admin: 08/13/22 05:05 Dose: Not Given Sucralfate (Sucralfate 1 Gm Tablet) gm PO BID [facility] Venlafaxine HCl (Venlafaxine 75 Mg Cap.Xl.24h) 225 mg PO QAM [facility] A/P Assessment and plan (1) Uncontrolled type 1 diabetes mellitus with diabetic nephropathy, with long- term current use of insulin: Status: Chronic (2) CKD (chronic kidney disease): Status: Acute (3) Diabetic gastroparesis associated with type 1 diabetes mellitus: Status: Chronic (4) DKA (diabetic ketoacidosis): Status: Acute Narrative A/P Narrative: #DKA -The patient's DKA is resolved as his anion gap is closed. Insulin drip has been discontinued this morning on 08/13. -He has not been started on Lantus and insulin sliding scale -Insulin gtt as BS 948, elevated beta-hydroxybutyrate and AG -Aggressive IVF resuscitation -Once AG closes (currently 22), can d/c gtt -If AG remains elevated, and BS <250, can start D5W -Monitor and replete K, will check BMP q6h #Metabolic alkalosis -likely due to contraction alkalosis and compensatory for respiratory acidosis -HCO3 >40 #Respiratory acidosis -due to somnolence and decreased RR #Lactic acidosis -LA 4.3, tx ax above #CDK stage IV -Cr 3.5, EGFR 21 -hold nephrotoxic agents, renally dose meds #Psych -Patient's family actively in search for AFH -Behavioral health referral Time Spent With Patient Time: Total time spent is greater than 50% in coordination of care (as documented) at patient's floor/unit and/or counseling patient: Subsequent: Total time with patient: 25 - 34 minutes QUALITY VTE Deep Vein Thrombosis/Pulmonary Embolism Present on Admission: No
[2022-08-13] MEDS: FLUoxetine HCL 20 MG CAPSULE PO SCH (11:14)
[2022-08-13] MEDS: VENLAFAXINE 75 MG CAP.XL.24H PO SCH (11:18)
[2022-08-13] MEDS ORDERED: POTASSIUM CHLORIDE 40 MEQ in DEXTROSE 5% IN WATER 500 ML IV SCH (12:00)
[2022-08-13] MEDS: DILTIAZEM 30 MG TABLET PO SCH ×2 (13:20→21:03)
--- NOTE | 2022-08-13 14:45 | EKG ---
[facility] Test Date: 2022-08-12 Pat Name: Mauri Levine Department: ED Room: Gender: Male Mysql Dba: ss : 1985 Requested By: Autumn Salinas Order Number: [id number] Reading MD: Demetrius Interiano M.D. Measurements Intervals [place] Rate: 96 P: 51 AK: 169 QRS: 80 QRSD: 90 T: 87 QT: 390 QTc: 493 Interpretive Statements Sinus rhythm Voltage for Left ventricular hypertrophy Nonspecific T abnormalities, lateral leads Prolonged QT interval Electronically Signed On 08-13-2022 14:44:38 PST by Demetrius Interiano M.D. /[id number]
[2022-08-13] MEDS: MIRTAZAPINE 15 MG TABLET PO SCH (21:03)
[2022-08-13] MEDS: SUCRALFATE 1 GM TABLET PO SCH (21:03)
[2022-08-13] MEDS: CARVEDILOL 6.25 MG TABLET PO SCH (21:03)
[2022-08-14] MEDS: ONDANSETRON 4 MG/2 ML VIAL IV PRN (04:26)
[2022-08-14] MEDS: 0.9 % SODIUM CHLORIDE 10 ML SYRINGE IV SCH ×3 (05:38→21:03)
[2022-08-14] MEDS: DILTIAZEM 30 MG TABLET PO SCH ×3 (05:38→21:03)
[2022-08-14] MEDS: INSULIN LISPRO 1 UNIT/0.01 ML UNIT SQ SCH ×4 (08:18→21:02)
[2022-08-14] MEDS: INSULIN GLARGINE, HUMAN 1 UNIT/0.01 ML SQ SCH (08:18)
[2022-08-14] MEDS: CARVEDILOL 6.25 MG TABLET PO SCH ×2 (08:20→21:03)
[2022-08-14] MEDS: SUCRALFATE 1 GM TABLET PO SCH ×2 (08:20→21:03)
[2022-08-14] MEDS: HEPARIN 5,000 UNIT/ML VIAL SQ SCH ×2 (08:20→21:02)
[2022-08-14] MEDS: FLUoxetine HCL 20 MG CAPSULE PO SCH (08:20)
[2022-08-14] MEDS: VENLAFAXINE 75 MG CAP.XL.24H PO SCH (08:27)
[2022-08-14] MEDS ORDERED: HEPARIN SODIUM,PORCINE/PF 500 UNIT/5 ML SYRINGE IV ONE (08:43)
--- NOTE | 2022-08-14 10:05 | Internal Med Progress Note ---
SUBJECTIVE Subjective Patient information: Note initiated : 08/14/22 at 10:04 am Service Date, if different from initiated Date: [] Patient: Mauri Levine 36 y/o M admitted on 08/12/22 for HI BG/DKA. Chief Complaint: [] Principal diagnosis: DKA Interval history: The patient was pleasant while eating breakfast. He was calm and cooperative. He had no active complaints or concerns. Constitutional Vitals: Vital Signs Temp Pulse Resp BP Pulse Ox O2 Del Method O2 Flow Rate 98.0 F 75 13 155/94 100 Room Air 2 08/14/22 08:00 08/14/22 09:02 08/14/22 09:02 08/14/22 09:02 08/14/22 09:02 08/14/22 08:00 08/13/22 06:34 Period Temp Pulse Resp BP Sys/Menard Pulse Ox O2 Del Method O2 Flow Rate Last 24 Hr 97.4 F-98.4 F 66-105 12-26 96-197/60-110 96-100 Room Air-Room Air Intake and Output 08/13/22 08/14/22 08/14/22 19:59 03:59 11:59 Intake Total 3785 559 7440 Output Total 2500 2875 Balance -780 320 265 Weight 71.469 kg 72.076 kg Intake & Output: Intake & Output 08/13/22 08/14/22 08/14/22 19:59 03:59 11:59 Intake Total 4952 588 6689 Output Total 2500 2875 Balance -780 320 265 Weight 71.469 kg 72.076 kg Intake: IV 520 Dextrose 5%-Ns IV Solution 1, 0 000 ml @ 150 mls/hr IV .[id number] [facility] Rx#:[id number] HumuLIN R 50 UNIT In Sodium 0 Chloride 0.9% 99.5 ml @ 7 UNIT/ HR 14 mls/hr IV ONCE ONE Rx#: [id number] Potassium Chloride 40 Meq In 520 Dextrose 5% in Water 500 ml @ 130 mls/hr IV ONCE [facility] Rx#: [id number] Oral 0039 720 9256 Output: Void Amount 2500 2875 Other: Meal Lunch Breakfast Percent of Meal Consumed 100% 100% Feeding Ability Independent Independent Urine Appearance Clear Clear Urine Color Yellow Bright Yellow Urine Odor Normal Stool Color Brown Head Head exam: Present atraumatic and normal inspection Eye Eye exam: Present normal appearance ENT ENT exam: Present mucous membranes moist, normal exam and normal external ear exam Neck Neck exam: Present normal inspection Respiratory Respiratory exam: Present normal respiratory exam Cardiovascular Cardiovascular exam: Present normal rate and rhythm GI/Abdominal GI/Abdominal exam: Present normal bowel sounds Back Exam Back exam: Present normal inspection Neurological Exam Neurological exam: Present alert and oriented X3 Skin Skin exam: Present intact and warm OBJ DATA Labs 08/13/22 05:14 08/13/22 05:14 Labs: Abnormal Lab Results 08/13/22 08/13/22 08/13/22 05:14 05:14 03:27 WBC 12.1 H RBC 3.67 L Hgb 9.9 L Hct 29.7 L POC Hct RDW 14.7 H Lymph # (Auto) Winn # (Auto) 1.19 H Immature Gran # 0.06 H Absolute Neutrophils 8.47 H POC VBG pH POC VBG pCO2 at Temp POC VBG HCO3 POC VBG Total CO2 POC Venous O2 Sat POC VBG Base Excess VBG Lactic Acid POC Sodium Sodium POC Chloride Chloride 88 L Carbon Dioxide 44 H* POC Total CO2 Anion Gap 7.0 L POC BUN BUN 48 H Creatinine 3.5 H POC Creatinine Glucose 160 H POC Glucose Uric Acid 8.5 H Calcium 8.1 L POC WB Ioniz Calcium Magnesium 4.2 H* Alkaline Phosphatase 155 H Beta-Hydroxybutyrate U Marijuana (THC) Screen Suspect positive A 08/12/22 08/12/22 08/12/22 22:23 22:22 18:34 WBC RBC Hgb Hct POC Hct 35.0 L RDW Lymph # (Auto) Winn # (Auto) Immature Gran # Absolute Neutrophils POC VBG pH POC VBG pCO2 at Temp POC VBG HCO3 POC VBG Total CO2 POC Venous O2 Sat POC VBG Base Excess VBG Lactic Acid 3.5 H POC Sodium 118 L* Sodium 130 L POC Chloride < 65 L Chloride 74 L Carbon Dioxide 45 H* POC Total CO2 46.0 H* Anion Gap POC BUN 51 H BUN 57 H Creatinine 3.6 H POC Creatinine 3.9 H Glucose 553 H* POC Glucose > 700 H* Uric Acid Calcium 8.3 L POC WB Ioniz Calcium 0.79 L Magnesium Alkaline Phosphatase Beta-Hydroxybutyrate U Marijuana (THC) Screen 01/26/23 01/26/23 01/26/23 18:30 18:01 17:55 WBC RBC Hgb Hct POC Hct RDW Lymph # (Auto) Winn # (Auto) Immature Gran # Absolute Neutrophils POC VBG pH 7.58 H 7.70 H* POC VBG pCO2 at Temp 52.7 H 40.1 L POC VBG HCO3 49.4 H* 49.3 H* POC VBG Total CO2 > 50.0 H* > 50.0 H* POC Venous O2 Sat 75.0 H 71.0 H POC VBG Base Excess 28.0 H* 29.0 H* VBG Lactic Acid 4.3 H* 4.0 H* POC Sodium Sodium 124 L POC Chloride Chloride 61 L Carbon Dioxide 41 H* POC Total CO2 Anion Gap 22.0 H POC BUN BUN 58 H Creatinine 3.5 H POC Creatinine Glucose 948 H* POC Glucose Uric Acid Calcium 8.4 L POC WB Ioniz Calcium Magnesium Alkaline Phosphatase 190 H Beta-Hydroxybutyrate 4.96 H U Marijuana (THC) Screen 08/12/22 17:55 WBC RBC 3.91 L Hgb 10.4 L Hct 31.5 L POC Hct RDW 14.6 H Lymph # (Auto) 1.21 L Winn # (Auto) Immature Gran # Absolute Neutrophils POC VBG pH POC VBG pCO2 at Temp POC VBG HCO3 POC VBG Total CO2 POC Venous O2 Sat POC VBG Base Excess VBG Lactic Acid POC Sodium Sodium POC Chloride Chloride Carbon Dioxide POC Total CO2 Anion Gap POC BUN BUN Creatinine POC Creatinine Glucose POC Glucose Uric Acid Calcium POC WB Ioniz Calcium Magnesium Alkaline Phosphatase Beta-Hydroxybutyrate U Marijuana (THC) Screen Meds: Medications Acetaminophen (Acetaminophen 325 Mg Tablet) 650 mg PO Q4-6HP PRN; Protocol PRN Reason: Per Pain Protocol/Fever > 101 Carvedilol (Carvedilol 6.25 Mg Tablet) 6.25 mg PO BID [facility] Last Admin: 08/14/22 08:20 Dose: 6.25 mg Clonidine HCl (Clonidine Tts 3 1 Patch Patch) 1 patch TD Fr@1000 [facility] Last Admin: 08/13/22 14:15 Dose: 1 patch Dextrose (Dextrose 50% 50 Ml Vial) 0 ml IV UD PRN PRN Reason: Per Sliding Scale Diagnostic Test (Pha) (Accu-Chek 1 Each Strip) 1 each FS ACHS [facility] Last Admin: 08/14/22 07:15 Dose: 1 each Diltiazem HCl (Diltiazem 30 Mg Tablet) 60 mg PO Q8 [facility] Last Admin: 08/14/22 05:38 Dose: 60 mg Fluoxetine HCl (Fluoxetine Hcl 20 Mg Capsule) 20 mg PO QDAY [facility] Last Admin: 08/14/22 08:20 Dose: 20 mg Glucose (Dextrose 31 Gm Oral.Susp) 15 gm PO PRN PRN PRN Reason: Hypoglycemia Heparin Sodium (Porcine) (Heparin 5,000 Unit/Ml Vial) 5,000 unit SQ Q12 [facility] Last Admin: 08/14/22 08:20 Dose: 5,000 unit Hydralazine HCl (Hydralazine 20 Mg/Ml Vial) 10 mg IV Q4-6HP PRN PRN Reason: Hypertension SBP >180mmHg Last Admin: 08/13/22 13:20 Dose: 10 mg Insulin Human Regular 50 unit/ (Sodium Chloride) 100 mls @ 0 mls/hr IV DUR [facility]; Protocol Insulin Glargine (Insulin Glargine, Human 1 Unit/0.01 Ml) 20 unit SQ DAILY [facility] Last Admin: 08/14/22 08:18 Dose: 20 units Insulin Human Lispro (Insulin Lispro 1 Unit/0.01 Ml Unit) 0 unit SQ ACHS [facility]; Protocol Last Admin: 08/14/22 08:18 Dose: 6 units Mirtazapine (Mirtazapine 15 Mg Tablet) 15 mg PO HS [facility] Last Admin: 08/13/22 21:03 Dose: 15 mg Ondansetron HCl (Ondansetron 4 Mg/2 Ml Vial) 4 mg IV Q4-6HP PRN; Protocol PRN Reason: Nausea And Vomiting Last Admin: 08/14/22 04:26 Dose: 4 mg Promethazine HCl (Promethazine 25 Mg/Ml Vial) 12.5 mg IV Q4-6HP PRN; Protocol PRN Reason: Nausea And Vomiting Last Admin: 08/13/22 03:16 Dose: 12.5 mg Ropinirole HCl (Ropinirole 0.25 Mg Tablet) 0.5 mg PO HSP PRN PRN Reason: restless leg Sodium Chloride (0.9 % Sodium Chloride 10 Ml Syringe) 10 ml IV Q8 [facility] Last Admin: 08/14/22 05:38 Dose: 10 ml Sucralfate (Sucralfate 1 Gm Tablet) 1 gm PO BID [facility] Last Admin: 08/14/22 08:20 Dose: 1 gm Venlafaxine HCl (Venlafaxine 75 Mg Cap.Xl.24h) 225 mg PO QAM [facility] Last Admin: 08/14/22 08:27 Dose: 225 mg A/P Assessment and plan (1) Uncontrolled type 1 diabetes mellitus with diabetic nephropathy, with long- term current use of insulin: Status: Chronic (2) CKD (chronic kidney disease): Status: Acute (3) Diabetic gastroparesis associated with type 1 diabetes mellitus: Status: Chronic (4) DKA (diabetic ketoacidosis): Status: Acute Narrative A/P Narrative: #DKA -The patient's DKA is resolved as his anion gap is closed. Insulin drip has been discontinued this morning on 08/13. -He has not been started on Lantus and insulin sliding scale -Insulin gtt as BS 948, elevated beta-hydroxybutyrate and AG -Aggressive IVF resuscitation -Once AG closes (currently 22), can d/c gtt -If AG remains elevated, and BS <250, can start D5W -Monitor and replete K, will check BMP q6h #Metabolic alkalosis -likely due to contraction alkalosis and compensatory for respiratory acidosis -HCO3 >40 #Respiratory acidosis -due to somnolence and decreased RR #Lactic acidosis -LA 4.3, tx ax above #CDK stage IV -Cr 3.5, EGFR 21 -hold nephrotoxic agents, renally dose meds #Psych -Patient's family actively in search for AFH -Behavioral health referral Time Spent With Patient Time: Total time spent is greater than 50% in coordination of care (as documented) at patient's floor/unit and/or counseling patient: Subsequent: Total time with patient: 25 - 34 minutes QUALITY VTE Deep Vein Thrombosis/Pulmonary Embolism Present on Admission: No
[2022-08-14 10:40] LABS: Blood Urea Nitrogen 38 mg/dL (6-20); Calcium 9.2 mg/dL (8.6-10.4); Carbon Dioxide 31 mmol/L (22-30); Chloride 86 mmol/L (96-108); Glomerular Filtration Rate 25; Glucose 294 mg/dL (70-105)
[2022-08-14] MEDS: MIRTAZAPINE 15 MG TABLET PO SCH (21:03)
[2022-08-14] MEDS ORDERED: LORazepam 1 MG TABLET ONE (23:10)
[2022-08-14] MEDS: LORazepam 1 MG TABLET PO PRN (23:12)
[2022-08-15] MEDS: DILTIAZEM 30 MG TABLET PO SCH ×3 (05:18→21:20)
[2022-08-15] MEDS: 0.9 % SODIUM CHLORIDE 10 ML SYRINGE IV SCH ×3 (05:18→21:20)
[2022-08-15] MEDS: INSULIN LISPRO 1 UNIT/0.01 ML UNIT SQ SCH ×3 (07:15→16:17)
[2022-08-15 07:45] LABS: Basophils # (Auto) 0.06 K/mcL (0.00-0.30); Eosinophils # (Auto) 0.11 K/mcL (0.00-0.70); Eosinophils % (Auto) 1.9 % (0.0-7.0); Hematocrit 28.6 % (40.1-51.0); Hemoglobin 8.9 g/dL (13.7-17.5); Lymphocytes # (Auto) 2.81 K/mcL (1.50-4.80); Lymphocytes % (Auto) 48.1 % (15.5-49.0); Mean Cell Volume 86.1 fL (80.0-100.0); Mean Corpuscular HGB Conc 31.1 g/dL (31.0-36.0); Mean Platelet Volume 10.5 fL (8.8-12.5); Monocytes # (Auto) 0.54 K/mcL (0.10-0.90); Monocytes % (Auto) 9.2 % (1.0-12.0); Neutrophils % (Auto) 39.5 % (38.0-78.0); Platelet Count 289 K/mcL (140-440); RBC 3.32 M/mcL (4.63-6.08); Red Cell Distribution Width 15.1 % (11.5-14.5); WBC 5.8 K/mcL (4.5-11.0)
[2022-08-15 07:59] LABS: ALT/SGPT 12 U/L (<40); AST/SGOT 17 U/L (<40); Albumin 3.2 gm/dL (3.2-5.2); Albumin/Globulin Ratio 1.3 (1.0-2.3); Alkaline Phosphatase 116 U/L (39-117); Bilirubin,Total < 0.2 mg/dL (0.1-1.0); Blood Urea Nitrogen 49 mg/dL (6-20); Calcium 8.3 mg/dL (8.6-10.4); Carbon Dioxide 29 mmol/L (22-30); Chloride 94 mmol/L (96-108); Globulin 2.5 gm/dL (2.2-3.7); Glomerular Filtration Rate 20; Glucose 95 mg/dL (70-105)
[2022-08-15] MEDS: FLUoxetine HCL 20 MG CAPSULE PO SCH (08:19)
[2022-08-15] MEDS: HEPARIN 5,000 UNIT/ML VIAL SQ SCH ×2 (08:19→21:20)
[2022-08-15] MEDS: VENLAFAXINE 75 MG CAP.XL.24H PO SCH (08:19)
[2022-08-15] MEDS: CARVEDILOL 6.25 MG TABLET PO SCH ×2 (08:19→21:20)
[2022-08-15] MEDS: FAMOTIDINE 20 MG TABLET PO SCH ×2 (08:19→21:19)
[2022-08-15] MEDS: INSULIN GLARGINE, HUMAN 1 UNIT/0.01 ML SQ SCH (08:19)
[2022-08-15] MEDS: SUCRALFATE 1 GM TABLET PO SCH ×2 (08:19→21:19)
[2022-08-15] MEDS ORDERED: diphenhydrAMINE 25 MG CAPSULE PO PRN (11:17)
--- NOTE | 2022-08-15 11:26 | Internal Med Progress Note ---
SUBJECTIVE Subjective Patient information: Note initiated : 08/15/22 at 11:16 am Service Date, if different from initiated Date: [] Patient: Mauri Levine a 36 y/o M admitted on 08/12/22 for HI BG/DKA. Chief Complaint: [] Principal diagnosis: DKA Interval history: Mr. Levine is a 36 year old M with a past medical history significant for type 1 diabetes mellitus with noncompliance, CKD stage IV, hypertension, and underlying psych disorder who presents to the hospital once again with nausea, vomiting and severe hyperglycemia with a blood sugar greater than 900. The patient normally wears a continuous glucose monitor and states that his insulin pump became dysfunctional yesterday. He attempted to manually check his blood sugars and give himself insulin however with no improvement. It is unclear whether the patient is being forthright. He states that he continued to clinically deteriorate over 24 hours. This morning he tried to eat chicken and also however was unable to keep it down. On presentation he was hemodynamically stable and afebrile. He was found to have severe electrolyte derangements in the setting of diabetic ketoacidosis. The hospitalist service was asked admit the patient to the ICU. Of note, the patient has been hospitalized multiple times in the setting of noncompliance. He was recently discharged on July 27. At this time, he is followed closely with nephrology as he is on the verge of hemodialysis. The patient also has a port in place as he frequently requires IV hydration due to poor p.o. intake at times. The patient does have a history of gastroparesis. 08/13: The patient is calm and cooperative. He states that he is feeling better. Discussed the case with the RN. 08/14: The patient was pleasant while eating breakfast. He was calm and cooperative. He had no active complaints or concerns. 08/15: Fasting glucose 95. Patient has a good appetite this morning. He denies any GI upset such as nausea vomiting or abdominal pain. Pending patient's mom to bring him his glucometer and insulin pump. Otherwise, continue insulin Lantus 20 units daily and insulin lispro sliding scale insulin AC HS. Constitutional Vitals: Vital Signs Temp Pulse Resp BP Pulse Ox O2 Del Method O2 Flow Rate 36.3 C 58 L 20 120/79 100 Room Air 2 08/15/22 07:49 08/15/22 03:46 08/15/22 07:49 08/15/22 07:49 08/15/22 07:49 08/15/22 07:49 08/13/22 06:34 Period Temp Pulse Resp BP Sys/Menard Pulse Ox O2 Del Method O2 Flow Rate Last 24 Hr 35.8 C-36.7 C 58-97 16-21 86-156/60-90 97-100 Room Air-Room Air Intake and Output 08/14/22 08/15/22 08/15/22 19:59 03:59 11:59 Intake Total 960 1040 240 Output Total 502 947 7225 Balance 285 240 -860 Weight 70.845 kg Intake & Output: Intake & Output 08/14/22 08/15/22 08/15/22 19:59 03:59 11:59 Intake Total 960 1040 240 Output Total 181 268 7544 Balance 285 240 -860 Weight 70.845 kg Intake: Oral 960 1040 240 Output: Void Amount 401 158 9531 Other: Meal Dinner egg salad, cheese stick Breakfast Percent of Meal Consumed 100% 100% Feeding Ability Independent Urine Appearance Clear Clear Clear Urine Color Yellow Pale Yellow Pale Urine Odor Normal Normal General appearance: average body habitus, cooperative and no acute distress Head Head exam: Present atraumatic and normal inspection Eye Eye exam: Present normal appearance ENT ENT exam: Present mucous membranes moist, normal exam and normal external ear exam Neck Neck exam: Present normal inspection Respiratory Respiratory exam: Present normal respiratory exam Cardiovascular Cardiovascular exam: Present normal rate and rhythm GI/Abdominal GI/Abdominal exam: Present normal bowel sounds Back Exam Back exam: Present normal inspection Neurological Exam Neurological exam: Present alert and oriented X3 Skin Skin exam: Present intact and warm OBJ DATA Labs 08/15/22 05:16 08/15/22 05:16 Labs: Abnormal Lab Results 08/15/22 08/15/22 08/14/22 05:16 05:16 08:48 WBC RBC 3.32 L Hgb 8.9 L Hct 28.6 L POC Hct RDW 15.1 H Lymph # (Auto) Banks # (Auto) Immature Gran # Absolute Neutrophils POC VBG pH POC VBG pCO2 at Temp POC VBG HCO3 POC VBG Total CO2 POC Venous O2 Sat POC VBG Base Excess VBG Lactic Acid POC Sodium Sodium 131 L 128 L POC Chloride Chloride 94 L 86 L Carbon Dioxide 31 H POC Total CO2 Anion Gap POC BUN BUN 49 H 38 H Creatinine 3.7 H 3.1 H POC Creatinine Glucose 294 H POC Glucose Uric Acid Calcium 8.3 L POC WB Ioniz Calcium Magnesium Alkaline Phosphatase Total Protein 5.7 L Beta-Hydroxybutyrate U Marijuana (THC) Screen 08/13/22 08/13/22 08/13/22 05:14 05:14 03:27 WBC 12.1 H RBC 3.67 L Hgb 9.9 L Hct 29.7 L POC Hct RDW 14.7 H Lymph # (Auto) Banks # (Auto) 1.19 H Immature Gran # 0.06 H Absolute Neutrophils 8.47 H POC VBG pH POC VBG pCO2 at Temp POC VBG HCO3 POC VBG Total CO2 POC Venous O2 Sat POC VBG Base Excess VBG Lactic Acid POC Sodium Sodium POC Chloride Chloride 88 L Carbon Dioxide 44 H* POC Total CO2 Anion Gap 7.0 L POC BUN BUN 48 H Creatinine 3.5 H POC Creatinine Glucose 160 H POC Glucose Uric Acid 8.5 H Calcium 8.1 L POC WB Ioniz Calcium Magnesium 4.2 H* Alkaline Phosphatase 155 H Total Protein Beta-Hydroxybutyrate U Marijuana (THC) Screen Suspect positive A 08/12/22 08/12/22 08/12/22 22:23 22:22 18:34 WBC RBC Hgb Hct POC Hct 35.0 L RDW Lymph # (Auto) Banks # (Auto) Immature Gran # Absolute Neutrophils POC VBG pH POC VBG pCO2 at Temp POC VBG HCO3 POC VBG Total CO2 POC Venous O2 Sat POC VBG Base Excess VBG Lactic Acid 3.5 H POC Sodium 118 L* Sodium 130 L POC Chloride < 65 L Chloride 74 L Carbon Dioxide 45 H* POC Total CO2 46.0 H* Anion Gap POC BUN 51 H BUN 57 H Creatinine 3.6 H POC Creatinine 3.9 H Glucose 553 H* POC Glucose > 700 H* Uric Acid Calcium 8.3 L POC WB Ioniz Calcium 0.79 L Magnesium Alkaline Phosphatase Total Protein Beta-Hydroxybutyrate U Marijuana (THC) Screen 08/12/22 08/12/22 08/12/22 18:30 18:01 17:55 WBC RBC Hgb Hct POC Hct RDW Lymph # (Auto) Banks # (Auto) Immature Gran # Absolute Neutrophils POC VBG pH 7.58 H 7.70 H* POC VBG pCO2 at Temp 52.7 H 40.1 L POC VBG HCO3 49.4 H* 49.3 H* POC VBG Total CO2 > 50.0 H* > 50.0 H* POC Venous O2 Sat 75.0 H 71.0 H POC VBG Base Excess 28.0 H* 29.0 H* VBG Lactic Acid 4.3 H* 4.0 H* POC Sodium Sodium 124 L POC Chloride Chloride 61 L Carbon Dioxide 41 H* POC Total CO2 Anion Gap 22.0 H POC BUN BUN 58 H Creatinine 3.5 H POC Creatinine Glucose 948 H* POC Glucose Uric Acid Calcium 8.4 L POC WB Ioniz Calcium Magnesium Alkaline Phosphatase 190 H Total Protein Beta-Hydroxybutyrate 4.96 H U Marijuana (THC) Screen 08/12/22 17:55 WBC RBC 3.91 L Hgb 10.4 L Hct 31.5 L POC Hct RDW 14.6 H Lymph # (Auto) 1.21 L Banks # (Auto) Immature Gran # Absolute Neutrophils POC VBG pH POC VBG pCO2 at Temp POC VBG HCO3 POC VBG Total CO2 POC Venous O2 Sat POC VBG Base Excess VBG Lactic Acid POC Sodium Sodium POC Chloride Chloride Carbon Dioxide POC Total CO2 Anion Gap POC BUN BUN Creatinine POC Creatinine Glucose POC Glucose Uric Acid Calcium POC WB Ioniz Calcium Magnesium Alkaline Phosphatase Total Protein Beta-Hydroxybutyrate U Marijuana (THC) Screen Meds: Medications Acetaminophen (Acetaminophen 325 Mg Tablet) 650 mg PO Q4-6HP PRN; Protocol PRN Reason: Per Pain Protocol/Fever > 101 Carvedilol (Carvedilol 6.25 Mg Tablet) 6.25 mg PO BID [facility] Last Admin: 08/15/22 08:19 Dose: 6.25 mg Clonidine HCl (Clonidine Tts 3 1 Patch Patch) 1 patch TD Fr@1000 [facility] Last Admin: 08/13/22 14:15 Dose: 1 patch Dextrose (Dextrose 50% 50 Ml Vial) 0 ml IV UD PRN PRN Reason: Per Sliding Scale Diagnostic Test (Pha) (Accu-Chek 1 Each Strip) 1 each FS ACHS [facility] Last Admin: 08/15/22 07:12 Dose: 1 each Diltiazem HCl (Diltiazem 30 Mg Tablet) 60 mg PO Q8 [facility] Last Admin: 08/15/22 05:18 Dose: 60 mg Famotidine (Famotidine 20 Mg Tablet) 20 mg PO BID [facility] Last Admin: 08/15/22 08:19 Dose: 20 mg Fluoxetine HCl (Fluoxetine Hcl 20 Mg Capsule) 20 mg PO QDAY [facility] Last Admin: 08/15/22 08:19 Dose: 20 mg Glucose (Dextrose 31 Gm Oral.Susp) 15 gm PO PRN PRN PRN Reason: Hypoglycemia Heparin Sodium (Porcine) (Heparin 5,000 Unit/Ml Vial) 5,000 unit SQ Q12 [facility] Last Admin: 08/15/22 08:19 Dose: 5,000 unit Hydralazine HCl (Hydralazine 20 Mg/Ml Vial) 10 mg IV Q4-6HP PRN PRN Reason: Hypertension SBP >180mmHg Last Admin: 08/13/22 13:20 Dose: 10 mg Insulin Human Regular 50 unit/ (Sodium Chloride) 100 mls @ 0 mls/hr IV DUR [facility]; Protocol Insulin Glargine (Insulin Glargine, Human 1 Unit/0.01 Ml) 20 unit SQ DAILY [facility] Last Admin: 08/15/22 08:19 Dose: 20 units Insulin Human Lispro (Insulin Lispro 1 Unit/0.01 Ml Unit) 0 unit SQ ACHS [facility]; Protocol Last Admin: 08/15/22 07:15 Dose: 4 units Lorazepam (Lorazepam 1 Mg Tablet) 1 mg PO DAILY PRN PRN Reason: Anxiety Last Admin: 08/14/22 23:12 Dose: 1 mg Mirtazapine (Mirtazapine 15 Mg Tablet) 15 mg PO HS [facility] Last Admin: 08/14/22 21:03 Dose: 15 mg Ondansetron HCl (Ondansetron 4 Mg/2 Ml Vial) 4 mg IV Q4-6HP PRN; Protocol PRN Reason: Nausea And Vomiting Last Admin: 08/14/22 04:26 Dose: 4 mg Promethazine HCl (Promethazine 25 Mg/Ml Vial) 12.5 mg IV Q4-6HP PRN; Protocol PRN Reason: Nausea And Vomiting Last Admin: 08/13/22 03:16 Dose: 12.5 mg Ropinirole HCl (Ropinirole 0.25 Mg Tablet) 0.5 mg PO HSP PRN PRN Reason: restless leg Sodium Chloride (0.9 % Sodium Chloride 10 Ml Syringe) 10 ml IV Q8 [facility] Last Admin: 08/15/22 05:18 Dose: 10 ml Sucralfate (Sucralfate 1 Gm Tablet) 1 gm PO BID [facility] Last Admin: 08/15/22 08:19 Dose: 1 gm Venlafaxine HCl (Venlafaxine 75 Mg Cap.Xl.24h) 225 mg PO QAM [facility] Last Admin: 08/15/22 08:19 Dose: 225 mg A/P Assessment and plan (1) Anemia of chronic renal failure, stage 4 (severe): Status: Acute (2) Type 1 diabetes mellitus with stage 3 chronic kidney disease and hyper tension: Status: Chronic Comment: As above (3) Marijuana use, continuous: Status: Chronic (4) DKA (diabetic ketoacidosis): Status: Acute (5) Hyponatremia: Status: Acute (6) Depression: Status: Acute (7) GERD (gastroesophageal reflux disease): Status: Chronic Qualifiers: Esophagitis presence: esophagitis presence not specified Qualified Code(s): K21.9 - Gastro-esophageal reflux disease without esophagitis Narrative A/P Narrative: Assessment and Plans: 1. DKA with type 1 diabetes mellitus: Inpatient med surg HgA1c Pending patient's mom to bring him his glucometer and insulin pump. Otherwise, continue insulin Lantus 20 units daily and insulin lispro sliding scale insulin AC HS. Diabetes education referral 2. Anemia associated with chronic kidney disease IV: cbc w/ auto diff in the morning to trend H/H 3. Hyponatremia: Daily chemistry to trend serum sodium level 4. hypertension associated with chronic kidney disease IV: Coreg Diltiazem Clonidine patch 5. Marijuana use: Continue to monitor 6. Depression: Fluoxetine Mirtazapine 7. GERD: Pepcid GI ppx: Pepcid DVT ppx: Heparin Code status: Full Prognosis: stable Disposition: inpatient med surg Time Spent With Patient Time: Total time spent is greater than 50% in coordination of care (as documented) at patient's floor/unit and/or counseling patient: Subsequent: Total time with patient: 35 - 49 minutes QUALITY VTE Deep Vein Thrombosis/Pulmonary Embolism Present on Admission: No
[2022-08-15] MEDS ORDERED: 0.9 % SODIUM CHLORIDE 1,000 ML IV ONE (14:12)
[2022-08-15] MEDS ORDERED: DEXTROSE 50% 50 ML SYRINGE IV ONE ×2 (15:18→23:55)
[2022-08-15] MEDS: MIRTAZAPINE 15 MG TABLET PO SCH (21:19)
[2022-08-15] MEDS: LORazepam 1 MG TABLET PO PRN (21:20)
[2022-08-16] MEDS: DILTIAZEM 30 MG TABLET PO SCH ×2 (05:48→15:29)
[2022-08-16] MEDS: 0.9 % SODIUM CHLORIDE 10 ML SYRINGE IV SCH ×2 (05:48→15:30)
[2022-08-16 06:14] LABS: Basophils # (Auto) 0.07 K/mcL (0.00-0.30); Basophils % (Auto) 1.1 % (0.0-2.0); Eosinophils % (Auto) 1.6 % (0.0-7.0); Hematocrit 30.7 % (40.1-51.0); Hemoglobin 9.5 g/dL (13.7-17.5); Lymphocytes # (Auto) 2.07 K/mcL (1.50-4.80); Lymphocytes % (Auto) 33.2 % (15.5-49.0); Mean Cell Volume 86.5 fL (80.0-100.0); Mean Corpuscular HGB Conc 30.9 g/dL (31.0-36.0); Monocytes # (Auto) 0.43 K/mcL (0.10-0.90); Monocytes % (Auto) 6.9 % (1.0-12.0); Platelet Count 290 K/mcL (140-440); RBC 3.55 M/mcL (4.63-6.08); Red Cell Distribution Width 14.8 % (11.5-14.5); WBC 6.2 K/mcL (4.5-11.0)
[2022-08-16 06:43] LABS: Estimated Average Glucose(eAG) 237 mg/dL; Hemoglobin A1C 9.9 % Hgb (4.0-6.0)
[2022-08-16 06:54] LABS: ALT/SGPT 13 U/L (<40); AST/SGOT 19 U/L (<40); Albumin 3.1 gm/dL (3.2-5.2); Albumin/Globulin Ratio 1.1 (1.0-2.3); Alkaline Phosphatase 118 U/L (39-117); Bilirubin,Total < 0.2 mg/dL (0.1-1.0); Blood Urea Nitrogen 51 mg/dL (6-20); Calcium 8.5 mg/dL (8.6-10.4); Carbon Dioxide 25 mmol/L (22-30); Chloride 99 mmol/L (96-108); Globulin 2.8 gm/dL (2.2-3.7); Glomerular Filtration Rate 21; Glucose 201 mg/dL (70-105)
[2022-08-16] MEDS: INSULIN LISPRO 1 UNIT/0.01 ML UNIT SQ SCH ×2 (07:43→11:53)
[2022-08-16] MEDS: FLUoxetine HCL 20 MG CAPSULE PO SCH (08:20)
[2022-08-16] MEDS: FAMOTIDINE 20 MG TABLET PO SCH (08:20)
[2022-08-16] MEDS: SUCRALFATE 1 GM TABLET PO SCH (08:20)
[2022-08-16] MEDS: CARVEDILOL 6.25 MG TABLET PO SCH (08:20)
[2022-08-16] MEDS: HEPARIN 5,000 UNIT/ML VIAL SQ SCH (08:20)
[2022-08-16] MEDS: VENLAFAXINE 75 MG CAP.XL.24H PO SCH (08:27)
[2022-08-16] MEDS ORDERED: INSULIN GLARGINE, HUMAN 1 UNIT/0.01 ML SQ SCH (09:00)
[2022-08-16] MEDS ORDERED: LORazepam 1 MG TABLET PO SCH (09:00)
--- NOTE | 2022-08-16 14:43 | Discharge Summary ---
Discharge Provider Provider IMPORTANT FOLLOW-UP INFORMATION FOR PCP: Patient information: Note initiated : 08/16/22 at 2:40 pm Service Date, if different from initiated Date: [] Patient: Mauri Levine 36 y/o M admitted on 08/12/22 for HI BG/DKA. Chief Complaint: [] Date of admission: 08/12/22 21:46 Discharge date: 08/16/22 Primary care physician: Flo Peña MD Attending physician on admission: Jorge Huffman Consults: 08/12/22 Consult to Physician [CONS] Stat Comment: Consulting Provider: Jorge Huffman Reason For Exam: Physician to Consult Attending physician on discharge: [facility]ui COURSE Hospital Course Hospital course: Mr. Levine is a 36 year old M with a past medical history significant for type 1 diabetes mellitus with noncompliance, CKD stage IV, hypertension, and underlying psych disorder who presents to the hospital once again with nausea, vomiting and severe hyperglycemia with a blood sugar greater than 900. The patient normally wears a continuous glucose monitor and states that his insulin pump became dysfunctional yesterday. He attempted to manually check his blood sugars and give himself insulin however with no improvement. It is unclear whether the patient is being forthright. He states that he continued to clinically deteriorate over 24 hours. This morning he tried to eat chicken and also however was unable to keep it down. On presentation he was hemodynamically stable and afebrile. He was found to have severe electrolyte derangements in the setting of diabetic ketoacidosis. The hospitalist service was asked admit the patient to the ICU. Of note, the patient has been hospitalized multiple times in the setting of noncompliance. He was recently discharged on July 27. At this time, he is followed closely with nephrology as he is on the verge of hemodialysis. The patient also has a port in place as he frequently requires IV hydration due to poor p.o. intake at times. The patient does have a history of gastroparesis. 08/13: The patient is calm and cooperative. He states that he is feeling better. Discussed the case with the RN. 08/14: The patient was pleasant while eating breakfast. He was calm and cooperative. He had no active complaints or concerns. 08/15: Fasting glucose 95. Patient has a good appetite this morning. He denies any GI upset such as nausea vomiting or abdominal pain. Pending patient's mom to bring him his glucometer and insulin pump. Otherwise, continue insulin Lantus 20 units daily and insulin lispro sliding scale insulin AC HS. 08/16: Advised patient to NOT use insulin pump until insulin transmitter is delivered. Discharged home with Rx Insulin Lantus sent to pharmacy. PCP follow up appointment already in place. All questions were answered prior to patient being physically discharged. Discharge diagnosis: DKA, type 1. Time Spent with Patient Time attestation: Total time spent providing and/or coordinating discharge services: Time spent: Less than 30 minutes EXAM Constitutional Vitals: Temp Pulse Resp BP Pulse Ox O2 Del Method O2 Flow Rate 35.8 C L 73 20 163/95 100 Room Air 2 08/16/22 11:54 08/16/22 11:54 08/16/22 11:54 08/16/22 11:54 08/16/22 11:54 08/16/22 03:30 08/13/22 06:34 General appearance: cooperative and no acute distress Head Head exam: Present atraumatic and normocephalic Eye Eye exam: Present EOMI and PERRL ENT ENT exam: Present mucous membranes moist, normal exam and normal external ear exam Neck Neck exam: Present normal inspection; Absent lymphadenopathy, tenderness or thyromegaly Respiratory Respiratory exam: Absent accessory muscle use, respiratory distress or wheezes Cardiovascular Cardiovascular exam: Present normal rate and rhythm; Absent JVD GI/Abdominal GI/Abdominal exam: Present normal bowel sounds and soft; Absent organomegaly or tenderness Rectal Rectal exam: Present deferred Extremities Exam Extremities exam: Present full ROM, normal capillary refill and normal inspection; Absent tenderness Neurological Exam Neurological exam: Present alert, CN II-XII intact and oriented X3; Absent motor sensory deficit Psychiatric Psychiatric exam: Present normal affect and normal mood; Absent anxious or depressed Skin Skin exam: Present dry and intact Discharge Data Data Completed and Pending Labs on day of discharge: Labs from last 24 hours 08/16/22 08/16/22 05:02 05:02 WBC 6.2 RBC 3.55 L Hgb 9.5 L Hct 30.7 L MCV 86.5 MCH 26.8 MCHC 30.9 L RDW 14.8 H Plt Count 290 MPV 11.0 Immature Gran % (Auto) 0.2 Neut % (Auto) 57.0 Lymph % (Auto) 33.2 [place] % (Auto) 6.9 Eos % (Auto) 1.6 Baso % (Auto) 1.1 Lymph # (Auto) 2.07 [place] # (Auto) 0.43 Eos # (Auto) 0.10 Baso # (Auto) 0.07 Immature Gran # 0.01 Absolute Neutrophils 3.56 Sodium 132 L Potassium 5.4 H Chloride 99 Carbon Dioxide 25 Anion Gap 8.0 BUN 51 H Creatinine 3.5 H GFR Calculation 21 Glucose 201 H Hemoglobin A1c 9.9 H Estim Average Glucose 237 Calcium 8.5 L Total Bilirubin < 0.2 AST 19 ALT 13 Alkaline Phosphatase 118 H Total Protein 5.9 Albumin 3.1 L Globulin 2.8 Albumin/Globulin Ratio 1.1 Discharge Plan Patient/Caregiver Discharge Instructions Instructions: Chronic Kidney Disease (GEN), Diabetic Ketoacidosis (GEN) Prescriptions: New insulin glargine [Lantus U-100 Insulin] 100 unit/mL Solution 10 unit subcut HS Qty: 10 2RF Continued (DME) insulin syringes (disposable) 1 mL syringe See Rx Instructions .Route Qty: 500 0RF Rx Instructions: use for insulin three times daily venlafaxine 75 mg capsule,extended release 24hr 225 mg PO QAM Qty: 90 5RF mirtazapine 15 mg tablet,disintegrating 15 mg PO HS Qty: 90 0RF ondansetron 4 mg tablet,disintegrating 4 mg PO Q8H Qty: 120 0RF fluoxetine 20 mg capsule 20 mg PO QDAY Qty: 90 1RF promethazine [Promethegan] 25 mg suppository 25 mg RI Q6H PRN (Reason: nausea and vomiting) Qty: 12 0RF Baqsimi 3 mg/actuation spray,non-aerosol 3 mg intranasal ONCE PRN (Reason: hypoglycemia) Qty: 1 0RF Rx Instructions: 1 spray intranasal as needed famotidine 20 mg tablet 20 mg PO BID Qty: 90 1RF sucralfate [Carafate] 1 gram tablet 1 g PO BID Qty: 70 0RF doxycycline hyclate 100 mg tablet 100 mg PO BID 5 Days Qty: 10 0RF (DME) blood-glucose meter Misc See Rx Instructions .Route Qty: 1 3RF Rx Instructions: use to test blood sugar 5 times daily (DME) Blood Glucose Test Strip See Rx Instructions .ROUTE .v2telPPLY Qty: 500 3RF Rx Instructions: use to test blood sugar 5 times daily (DME) lancets Misc See Rx Instructions .Route Qty: 500 3RF Rx Instructions: use to test blood sugar 5 times daily clonidine 0.3 mg/24 hr Patch Weekly 1 patch TD Fr@1000 Qty: 4 2RF ropinirole 0.25 mg Tablet 0.5 mg PO HSP PRN (Reason: restless leg) Qty: 10 2RF diltiazem HCl 30 mg Tablet 60 mg PO Q8 Qty: 90 2RF diphenhydramine HCl [EZ Nite Sleep] 25 mg capsule 25 mg PO QHS PRN (Reason: insomnia) Qty: 30 1RF insulin aspart U-100 [Novolog U-100 Insulin aspart] 100 unit/mL solution See Rx Instructions subcut TID Qty: 60 1RF Rx Instructions: subcut three times daily with meals; Moderate Dose Scale Blood Sugar (mg/dL), Units Insulin 70-130, 0 units 131-180, 4 units 181-240, 8 units 241-300, 10 units 301-350, 12 units 351-400, 16 units >400, 20 units and call carvedilol 6.25 mg tablet 1 tab PO BID lorazepam 1 mg tablet 1 - 2 mg PO QDAY Discontinued (DME) Dexcom sensor & monitor See Rx Instructions .Route .MEDSUPPLY Qty: 1 0RF Rx Instructions: As directed Follow Up Plan Follow up with: Khari Mills MD [Physician] - (Dr. Mills will contact you to schedule an appointment.) Flo Peña MD [Primary Care Provider] - 08/18/22 1:30 pm (Continue with your current appointment. Please arrive 15 minutes early.) Patient Disposition: Home, Self-Care Rehab Potential: Good I certify that the patient requires SNF services: No Overall status at discharge: patient is back to baseline Discharge Orders: Discharge Order (Routine); Ordered 08/16/22 Ordered By: Mustapha BEACH VTE Deep Vein Thrombosis/Pulmonary Embolism Present on Admission: No
[2022-08-20] MEDS ORDERED: cloNIDine TTS 3 1 PATCH PATCH TD SCH (10:00)
[2022-08-26 16:30] LABS: Cannabinoid Confirmation Positive
== END 2022-08-16 15:50 | disposition home or self-care (01) | DRG 638 ==
LOC: ED 17:28 → ICU 21:46
PROVIDERS: ADMIT Student in an Organized Health Care Education/Training Program; ATTEND Student in an Organized Health Care Education/Training Program

== ENCOUNTER 2022-09-13 08:50 | Observation (INO) ==
--- NOTE | 2022-09-13 08:53 | Emergency Department Note ---
HPI General Chief complaint: Nausea/Vomiting/Diarrhea Stated complaint: nausea/vomiting x 2-3 days Time Seen by Provider: 09/13/22 08:52 Source: patient Mode of arrival: wheelchair Limitations: no limitations History of Present Illness HPI Narrative: Narrative: Patient is a 36-year-old male with a history significant for type 1 diabetes and numerous episodes of DKA, CKD, diabetic gastroparesis who presents to the emergency department due to nausea, vomiting, and diarrhea. Patient's mother is present and provides a portion of the history. She states that he began to have nausea and vomiting yesterday, and it has worsened throughout the morning. She states that there was a concern that patient was not receiving his insulin, because on initial check his glucose read high. She states that she thinks that they fixed his high glucose at home because initial glucose here was in the 300s. Patient endorses epigastric abdominal pain, nausea, vomiting, and diarrhea. He denies any other symptoms at this time. Related Data Home Medications Medication Instructions Recorded Confirmed lorazepam 1 mg tablet 1 - 2 mg PO QDAY anxiety 08/14/22 09/13/22 Previous Rx's Medication Instructions Recorded blood sugar diagnostic (Blood #500 ea 09/10/21 Glucose Test strips) blood-glucose meter #1 ea 09/10/21 lancets #500 ea 09/10/21 insulin syringes (disposable) 1 mL #500 ea 01/12/22 mirtazapine 15 mg disintegrating 15 mg PO HS #90 tabs 06/08/22 tablet diltiazem HCl 30 mg tablet 60 mg PO Q8 #90 tabs 06/25/22 diphenhydramine HCl 25 mg capsule 25 mg PO QHS PRN insomnia #30 caps 06/25/22 (EZ Nite Sleep) ropinirole 0.25 mg tablet 0.5 mg PO HSP PRN restless leg #10 06/25/22 tabs insulin aspart U-100 100 unit/mL See Rx Instructions subcut TID #60 06/26/22 subcutaneous solution (Novolog mL U-100 Insulin aspart) ondansetron 4 mg disintegrating 4 mg PO Q8H cyclic vomiting #120 07/20/22 tablet tabs fluoxetine 20 mg capsule 20 mg PO QDAY #90 caps 08/03/22 promethazine 25 mg rectal 25 mg [place] Q6H PRN nausea and 08/03/22 suppository (Promethegan) vomiting #12 ea famotidine 20 mg tablet 20 mg PO BID #90 tabs 08/10/22 glucagon 3 mg/actuation nasal 3 mg intranasal ONCE PRN 08/10/22 spray (Baqsimi) hypoglycemia #1 ea insulin glargine 100 unit/mL 10 unit (0.1 mL) subcut HS #10 mL 08/16/22 subcutaneous solution (Lantus U-100 Insulin) sucralfate 1 gram tablet (Carafate) 1 g PO BID #70 tabs 08/16/22 carvedilol 6.25 mg tablet 6.25 mg PO BID #60 tabs 09/07/22 venlafaxine 75 mg capsule,extended 225 mg PO QAM #90 caps 09/07/22 release 24 hr clonidine 0.3 mg/24 hr weekly 1 patch topical Fr@1000 #4 ea 09/14/22 transdermal patch Allergies Allergy/AdvReac Type Severity Reaction Status Date / Time NSAIDS (Non-Steroidal Allergy Unknown Unknown Verified 09/13/22 08:53 Anti-Inflamma metoclopramide [From Reglan] AdvReac Mild Agitated Verified 09/13/22 08:53 prochlorperazine AdvReac Mild "My whole Verified 09/13/22 08:53 [From Compazine] body freaks out." silver AdvReac Mild dystonic Verified 09/13/22 08:53 IV iodine contrast Allergy Unknown Unknown Uncoded 08/18/22 13:36 Review of Systems ROS ROS Narrative: Narrative: Constitutional: Reports weakness (Generalized); Denies fever Eyes: Denies eye pain or vision change ENT ED: Denies throat pain, hearing loss or rhinorrhea Cardiovascular: Denies chest pain, dyspnea on exertion, orthopnea or edema Respiratory: Denies shortness of breath or cough Gastrointestinal: Denies abdominal pain, nausea, vomiting, diarrhea, constipation, hematochezia or melena Genitourinary: Denies dysuria, frequency or hematuria Musculoskeletal: Denies back pain or myalgia Integumentary: Denies rash or lesions Neurological: Reports weakness (Generalized) and confusion; Denies headache, numbness, abnormal gait or dizziness [facility] Narrative Patient History Narrative: Narrative: Medical/Surgical/Family History All Active Problems (Updated 09/20/22 @ 06:51 by Ab Mittal MD) Anemia of chronic renal failure, stage 4 (severe) (Acute) Testosterone deficiency (Chronic) Nausea and vomiting (Chronic) GERD (gastroesophageal reflux disease) (Chronic) Other hammer toe(s) (acquired), left foot (Chronic) Hypertension, essential (Chronic) Hyperlipidemia (Chronic) History of neuroleptic malignant syndrome (Chronic) Dehydration (Chronic) Drug-induced nausea and vomiting (Acute) Uncontrolled type 1 diabetes mellitus with diabetic nephropathy, with long-term current use of insulin (Chronic) Cyclic vomiting syndrome (Chronic) Type 1 diabetes mellitus with stage 3 chronic kidney disease and hypertension (Chronic) Marijuana use, continuous (Chronic) CKD (chronic kidney disease) (Acute) Nephrotic range proteinuria (Chronic) Controlled type 1 diabetes mellitus with chronic kidney disease (Chronic) Port-A-Cath in place (Acute) Diabetic gastroparesis associated with type 1 diabetes mellitus (Chronic) Diabetic neuropathy associated with type 1 diabetes mellitus (Chronic) Diabetic retinopathy associated with type 1 diabetes mellitus (Chronic) Anxiety (Chronic) Back pain (Chronic) Physical deconditioning (Chronic) Malnutrition (Chronic) Acute dehydration (Acute) Acute hypokalemia (Acute) QT prolongation (Acute) Dehydration (Acute) No-show for appointment (Acute) Intractable cyclical vomiting with nausea (Acute) Diabetic gastroparesis (Chronic) ROSALIO (acute kidney injury) (Acute) Hyperglycemia (Acute) Dehydration (Acute) Major depressive disorder, recurrent (Chronic) Generalized anxiety disorder (Chronic) Trauma and stressor-related disorder (Chronic) Diabetic gastroparesis (Acute) Nausea & vomiting (Acute) Acute dehydration (Acute) Ketosis (Acute) Uncontrolled diabetes mellitus (Acute) DKA (diabetic ketoacidosis) (Acute) Hyperosmolar hyperglycemic state (HHS) (Acute) Diabetic gastroparesis (Acute) Metabolic alkalosis (Acute) Stage 2 acute kidney injury (Acute) Hyponatremia (Acute) DKA (diabetic ketoacidosis) (Acute) Has multiple sexual partners (Acute) Hyperosmolar hyperglycemic state (HHS) (Acute) Acute hypokalemia (Acute) ROSALIO (acute kidney injury) (Acute) Nausea & vomiting (Acute) Hypochloremia (Acute) Alkalosis (Acute) Acute renal failure superimposed on stage 3a chronic kidney disease (Acute) Metabolic alkalosis (Acute) Altered mental status (Acute) Depression (Acute) Acute hyperglycemia (Acute) Nausea & vomiting (Acute) Seizures (Acute) Abnormal CT of brain (Acute) Sepsis (Acute) Hyponatremia (Acute) Pneumonia (Acute) Acute renal failure (Acute) Hypokalemia (Acute) Diabetic gastroparesis (Acute) Diabetic gastroparesis (Acute) CKD stage G3b/A3, GFR 30-44 and albumin creatinine ratio >300 mg/g (Acute) Renal failure (ARF), acute on chronic (Acute) ROSALIO (acute kidney injury) (Acute) Acute hypokalemia (Acute) Acidosis (Acute) Acid-base disorder, mixed (Acute) Acute worsening of stage 4 chronic kidney disease (Acute) Type 1 diabetes mellitus with hyperosmolar hyperglycemic state (HHS) (Acute) Acute hypokalemia (Acute) Nausea & vomiting (Acute) Acute respiratory failure with hypoxia (Acute) Type 1 diabetes mellitus with hyperosmolar hyperglycemic state (HHS) (Acute) Anemia associated with stage 4 chronic renal failure (Acute) DKA, type 1, not at goal (Acute) Metabolic acidosis with respiratory alkalosis (Acute) Gastroparesis (Acute) Tetrahydrocannabinol (THC) use disorder, moderate, dependence (Chronic) Binge eating disorder (Chronic) CKD stage 4 due to type 1 diabetes mellitus (Acute) Diabetic keto-acidosis (Acute) Mental health problem (Chronic) Toxic metabolic encephalopathy (Acute) Munchausen syndrome (Acute) DKA (diabetic ketoacidosis) (Acute) Cutaneous abscess of right axilla (Acute) Medical History Abdominal pain, epigastric Abnormal CT of brain Altered mental status Anxiety Back pain Chronic ulcer of left foot Coffee ground emesis Cutaneous abscess of right axilla Depression Diabetes mellitus type I Age 12, With foot ulcer Diabetic gastroparesis associated with type 1 diabetes mellitus Diabetic neuropathy associated with type 1 diabetes mellitus Diabetic peripheral neuropathy Diabetic retinopathy associated with type 1 diabetes mellitus DKA, type 1 Esophageal candidiasis Gastroenteritis Gastroparesis due to DM GERD (gastroesophageal reflux disease) Hallux valgus (acquired), left foot Has multiple sexual partners History of neuroleptic malignant syndrome To compazine (prochlorperazine). Tolerates promethazine without issue Hyperlipidemia Hypertension, essential labile due to unpredictable Rx absorption with gastroparesis and propensity for dehydration Hold captopril if persistent vomiting occurs or bp less than 120/80 stop coreg and nifedipine Continue clonidine patch#1 Labetalol IV PRN Hypokalemia Connie-[place]rne tear Malnutrition Marijuana use, continuous Nausea and vomiting Non-pressure chronic ulcer of other part of left foot limited to breakdown of skin Other hammer toe(s) (acquired), left foot Peripheral autonomic neuropathy due to DM Physical deconditioning Seizures Sepsis Tardive dyskinesia due to metoclopramide (Reglan) Testosterone deficiency Surgical History History of hand surgery Finger repair History of toe surgery left hallux Family History Mother Atrial fibrillation Essential hypertension Sister Malignant neoplasm of female breast Maternal Grandfather Malignant neoplasm of colon Recorded 11/12/10 Father Essential hypertension Other Adopted DKA, type 1 Social History Smoking Status: Never smoker Alcohol Intake Frequency: former alcohol drinker Substance Use: former substance user Exam Narrative Narrative: Narrative: General Limitations: no limitations General appearance: Present alert and in no apparent distress; Absent anxious, appears intoxicated or sleepy Head Head: Present atraumatic and normocephalic Eye Eye: Present PERRL and EOMI; Absent scleral icterus or nystagmus ENT ENT: Present mucous membranes moist; Absent nasal congestion Neck Neck: Present full ROM and trachea midline; Absent tenderness Chest Chest: Present normal inspection and symmetric chest wall rise; Absent tenderness Respiratory Respiratory: Present normal lung sounds bilaterally; Absent respiratory distress or accessory muscle use Cardiovascular Cardiovascular: Present normal rhythm, tachycardia and normal heart sounds Adbominal Abdominal: Present soft and normal bowel sounds; Absent distention or tenderness Extremities Extremities: Present normal inspection and full ROM; Absent tenderness Back Back: Present normal inspection and full ROM; Absent tenderness Neurological Neurological: Present alert, oriented X3, CN II-XII intact, normal gait and reflexes normal; Absent motor sensory deficit Psychiatric Psychiatric: Present normal affect and normal mood Skin Skin: Present warm (WNL), dry and normal color Course Vital Signs Vital signs: Vital Signs Temperature 97.4 F 09/13/22 08:51 Pulse Rate 118 H 09/13/22 08:51 Respiratory Rate 24 H 09/13/22 08:51 Blood Pressure 129/85 09/13/22 08:51 Pulse Oximetry (%) 99 09/13/22 08:51 Oxygen Delivery Method Room Air 09/13/22 08:51 Temperature 98.4 F 09/14/22 12:46 Pulse Rate 81 02/28/23 12:46 Respiratory Rate 16 09/14/22 12:46 Blood Pressure 156/86 09/14/22 12:46 Pulse Oximetry (%) 97 09/14/22 12:46 Oxygen Delivery Method Room Air 09/14/22 12:46 Oxygen Flow Rate (L/min) 2 09/13/22 12:01 MDM MDM Narrative Medical decision making narrative: Narrative: Patient is a 36-year-old male with a history significant for type 1 diabetes and numerous episodes of DKA, CKD, diabetic gastroparesis who presents to the emergency department due to nausea, vomiting, and diarrhea. There is concern that patient has DKA because this has been a frequent problem in the past. Differential for causes for patient's elevation in glucose include viral infection, patient's known gastroparesis. Patient's COVID/influenza swab was negative. Patient is found to have alkalosis. He does meet sepsis criteria, so patient was receiving fluids and got a dose of ceftriaxone. Patient also has an ROSALIO. I have spoken to Dr. Morgan who has agreed to see and evaluate patient for admission. Lab Data 09/13/22 09:15 09/13/22 09:15 Labs: Lab Results 09/13/22 09/13/22 09/13/22 Range/Units 09:15 09:15 09:15 WBC 12.7 H (4.5-11.0) K/mcL RBC 4.63 (4.63-6.08) M/mcL Hgb 12.2 L (13.7-17.5) g/dL Hct 37.1 L (40.1-51.0) % MCV 80.1 (80.0-100.0) fL MCH 26.3 (26.0-34.0) pg MCHC 32.9 (31.0-36.0) g/dL RDW 15.3 H (11.5-14.5) % Plt Count 363 (140-440) K/mcL MPV 10.7 (8.8-12.5) fL Immature Gran % (Auto) 0.2 (0.0-0.5) % Neut % (Auto) 84.8 H (38.0-78.0) % Lymph % (Auto) 8.5 L (15.5-49.0) % [place] % (Auto) 6.0 (1.0-12.0) % Eos % (Auto) 0 (0.0-7.0) % Baso % (Auto) 0.5 (0.0-2.0) % Lymph # (Auto) 1.08 L (1.50-4.80) K/mcL [place] # (Auto) 0.76 (0.10-0.90) K/mcL Eos # (Auto) 0 (0.00-0.70) K/mcL Baso # (Auto) 0.06 (0.00-0.30) K/mcL Immature Gran # 0.03 (0.00-0.05) K/mcl Absolute Neutrophils 10.80 H (1.80-8.00) K/mcL POC VBG pH (7.32-7.42) POC VBG pCO2 at Temp (41-51) POC VBG pO2 (25-40) POC VBG HCO3 (24-28) POC VBG Total CO2 (25-29) POC Venous O2 Sat (40-70) POC VBG Base Excess (-2-2) VBG Lactic Acid (0.5-2) Sodium 135 (133-145) mmol/L Potassium 3.5 (3.3-5.1) mmol/L Chloride 76 L (96-108) mmol/L Carbon Dioxide 33 H (22-30) mmol/L Anion Gap 26.0 H (8.0-16.0) BUN 62 H (6-20) mg/dL Creatinine 3.8 H (0.7-1.2) mg/dL GFR Calculation 19 Glucose 285 H (70-105) mg/dL Calcium 9.4 (8.6-10.4) mg/dL Total Bilirubin 0.2 (0.1-1.0) mg/dL AST 17 (<40) U/L ALT 11 (<40) U/L Alkaline Phosphatase 198 H (39-117) U/L Total Protein 8.2 (5.9-8.4) gm/dL Albumin 4.6 (3.2-5.2) gm/dL Globulin 3.6 (2.2-3.7) gm/dL Albumin/Globulin Ratio 1.3 (1.0-2.3) Lipase 13 (7-60) U/L Beta-Hydroxybutyrate 3.35 H (<0.27) mmol/L Procalcitonin (<0.10) ng/mL 09/13/22 09/13/22 Range/Units 09:24 11:28 WBC (4.5-11.0) K/mcL RBC (4.63-6.08) M/mcL Hgb (13.7-17.5) g/dL Hct (40.1-51.0) % MCV (80.0-100.0) fL MCH (26.0-34.0) pg MCHC (31.0-36.0) g/dL RDW (11.5-14.5) % Plt Count (140-440) K/mcL MPV (8.8-12.5) fL Immature Gran % (Auto) (0.0-0.5) % Neut % (Auto) (38.0-78.0) % Lymph % (Auto) (15.5-49.0) % [place] % (Auto) (1.0-12.0) % Eos % (Auto) (0.0-7.0) % Baso % (Auto) (0.0-2.0) % Lymph # (Auto) (1.50-4.80) K/mcL [place] # (Auto) (0.10-0.90) K/mcL Eos # (Auto) (0.00-0.70) K/mcL Baso # (Auto) (0.00-0.30) K/mcL Immature Gran # (0.00-0.05) K/mcl Absolute Neutrophils (1.80-8.00) K/mcL POC VBG pH 7.53 H (7.32-7.42) POC VBG pCO2 at Temp 57.3 H (41-51) POC VBG pO2 49 H (25-40) POC VBG HCO3 47.6 H* (24-28) POC VBG Total CO2 49.0 H* (25-29) POC Venous O2 Sat 87.0 H (40-70) POC VBG Base Excess 25.0 H* (-2-2) VBG Lactic Acid 1.2 (0.5-2) Sodium (133-145) mmol/L Potassium (3.3-5.1) mmol/L Chloride (96-108) mmol/L Carbon Dioxide (22-30) mmol/L Anion Gap (8.0-16.0) BUN (6-20) mg/dL Creatinine (0.7-1.2) mg/dL GFR Calculation Glucose (70-105) mg/dL Calcium (8.6-10.4) mg/dL Total Bilirubin (0.1-1.0) mg/dL AST (<40) U/L ALT (<40) U/L Alkaline Phosphatase (39-117) U/L Total Protein (5.9-8.4) gm/dL Albumin (3.2-5.2) gm/dL Globulin (2.2-3.7) gm/dL Albumin/Globulin Ratio (1.0-2.3) Lipase (7-60) U/L Beta-Hydroxybutyrate (<0.27) mmol/L Procalcitonin 0.28 H (<0.10) ng/mL ED POC Tests ED POC Tests: GEGE - Influenza A Negative GEGE - Influenza B Negative GEGE - SARS Antigen Negative Discharge Plan Patient/Caregiver Discharge Instructions Pt seen by DISH ROOM WORKER/PA only: No Clinical Impression: Diabetic gastroparesis, ROSALIO (acute kidney injury) Activity: increase activity as tolerated Patient Disposition: Xfer As Inpt ([facility]) Condition: Fair Discharge Date/Time: 09/13/22 15:05
[2022-09-13] MEDS ORDERED: 0.9 % SODIUM CHLORIDE 1,000 ML IV ONE (09:01)
[2022-09-13] MEDS ORDERED: PHENobarb/HYOSCY/ATROPINE/SCOP 1 DOSE BOTTLE PO ONE (10:28)
[2022-09-13 10:29] LABS: Basophils # (Auto) 0.06 K/mcL (0.00-0.30); Basophils % (Auto) 0.5 % (0.0-2.0); Eosinophils # (Auto) 0 K/mcL (0.00-0.70); Eosinophils % (Auto) 0 % (0.0-7.0); Hematocrit 37.1 % (40.1-51.0); Hemoglobin 12.2 g/dL (13.7-17.5); Lymphocytes # (Auto) 1.08 K/mcL (1.50-4.80); Lymphocytes % (Auto) 8.5 % (15.5-49.0); Mean Cell Volume 80.1 fL (80.0-100.0); Mean Corpuscular HGB Conc 32.9 g/dL (31.0-36.0); Mean Platelet Volume 10.7 fL (8.8-12.5); Monocytes # (Auto) 0.76 K/mcL (0.10-0.90); Neutrophils % (Auto) 84.8 % (38.0-78.0); Platelet Count 363 K/mcL (140-440); RBC 4.63 M/mcL (4.63-6.08); Red Cell Distribution Width 15.3 % (11.5-14.5); WBC 12.7 K/mcL (4.5-11.0)
[2022-09-13 10:57] LABS: ALT/SGPT 11 U/L (<40); AST/SGOT 17 U/L (<40); Albumin 4.6 gm/dL (3.2-5.2); Albumin/Globulin Ratio 1.3 (1.0-2.3); Alkaline Phosphatase 198 U/L (39-117); Beta Hydroxybutyrate 3.35 mmol/L (<0.27); Bilirubin,Total 0.2 mg/dL (0.1-1.0); Blood Urea Nitrogen 62 mg/dL (6-20); Calcium 9.4 mg/dL (8.6-10.4); Carbon Dioxide 33 mmol/L (22-30); Chloride 76 mmol/L (96-108); Globulin 3.6 gm/dL (2.2-3.7); Glomerular Filtration Rate 19; Glucose 285 mg/dL (70-105)
[2022-09-13] MEDS ORDERED: cefTRIAXone 1 GM VIAL IV ONE (11:27)
[2022-09-13] MEDS ORDERED: LACTATED RINGERS 1,000 ML IV ONE (12:02)
--- NOTE | 2022-09-13 12:19 | XRay Report ---
CLINICAL INFORMATION: Tachypnea hypoxia COMPARISON: [facility] 2022 TECHNIQUE: Portable FINDINGS: The tip of the left subclavian Port-A-Cath is redirected and likely located in the proximal left brachycephalic vein. The heart size, mediastinum and pulmonary vessels are unremarkable. The lungs are clear. There are no effusions. The bones and soft tissues are within normal limits. IMPRESSION: No cardiopulmonary disease. Possible Port-A-Cath malposition-please correlate with Port-A-Cath function Interpreted and Authenticated by: Demetrius Smart 09/13/22
[2022-09-13] MEDS ORDERED: DEXTROSE 50% 50 ML SYRINGE IV ONE (15:45)
[2022-09-13] MEDS ORDERED: ACETAMINOPHEN 325 MG TABLET PO PRN (15:54)
[2022-09-13] MEDS ORDERED: DEXTROSE 31 GM ORAL.SUSP PO PRN (15:54)
[2022-09-13] MEDS ORDERED: ONDANSETRON 4 MG/2 ML VIAL IV PRN (15:54)
[2022-09-13] MEDS ORDERED: DEXTROSE 50% 50 ML VIAL IV PRN (15:54)
[2022-09-13] MEDS ORDERED: ONDANSETRON 4 MG ODT TABLET SL PRN (15:54)
[2022-09-13] MEDS ORDERED: PROCHLORPERAZINE 10 MG/2 ML VIAL IV PRN (15:54)
--- NOTE | 2022-09-13 15:59 | Internal Med History&Physical ---
HPI History of Present Illness Patient information: Note initiated : 09/13/22 at 3:51 pm Service Date, if different from initiated Date: [] Patient: Mauri Levine 36 y/o M admitted on 09/13/22 for nausea/vomiting x 2-3 days. Chief Complaint: [] History of present illness: Mr. Levine is a 36 year old M with IDDM, gastroparesis, frequent admissions for DKA and gastroparesis, and CKD Cr 2.4). He presents with N/V/Diarrhea x one day and reports his insulin pump needle became dislodged overnight. His BS at home was "high" but improved after correcting his insulin pump and resuming insulin. In the ER, workup notable for BUN/Cr 62/3.8, HCO3 33, Cl 76, Na 135, K 3.5. He refused a urinary catheter. He was given 2L IVF. He had no N/V/D in the ER. At the time of my evaluation he requested clear liquids. Constitutional Constitutional: Present as per HPI EENT Eyes: Present as per HPI Ears: Present as per HPI Nose, mouth and throat: Present as per HPI Cardiovascular Cardiovascular: Present as per HPI Respiratory Respiratory: Present as per HPI Gastrointestinal Gastrointestinal: Present as per HPI Genitourinary Genitourinary: as per HPI Musculoskeletal Musculoskeletal: Present as per HPI Neurological Neurological: Present as per HPI Endocrine Endocrine: Present as per HPI PFSH PFSH All Active Problems Anemia of chronic renal failure, stage 4 (severe) (Acute) Testosterone deficiency (Chronic) Nausea and vomiting (Chronic) GERD (gastroesophageal reflux disease) (Chronic) Other hammer toe(s) (acquired), left foot (Chronic) Hypertension, essential (Chronic) Hyperlipidemia (Chronic) History of neuroleptic malignant syndrome (Chronic) Dehydration (Chronic) Drug-induced nausea and vomiting (Acute) Uncontrolled type 1 diabetes mellitus with diabetic nephropathy, with long-term current use of insulin (Chronic) Cyclic vomiting syndrome (Chronic) Type 1 diabetes mellitus with stage 3 chronic kidney disease and hypertension (Chronic) Marijuana use, continuous (Chronic) CKD (chronic kidney disease) (Acute) Nephrotic range proteinuria (Chronic) Controlled type 1 diabetes mellitus with chronic kidney disease (Chronic) Port-A-Cath in place (Acute) Diabetic gastroparesis associated with type 1 diabetes mellitus (Chronic) Diabetic neuropathy associated with type 1 diabetes mellitus (Chronic) Diabetic retinopathy associated with type 1 diabetes mellitus (Chronic) Anxiety (Chronic) Back pain (Chronic) Physical deconditioning (Chronic) Malnutrition (Chronic) Acute dehydration (Acute) Acute hypokalemia (Acute) QT prolongation (Acute) Dehydration (Acute) No-show for appointment (Acute) Intractable cyclical vomiting with nausea (Acute) Diabetic gastroparesis (Chronic) ROSALIO (acute kidney injury) (Acute) Hyperglycemia (Acute) Dehydration (Acute) Major depressive disorder, recurrent (Chronic) Generalized anxiety disorder (Chronic) Trauma and stressor-related disorder (Chronic) Diabetic gastroparesis (Acute) Nausea & vomiting (Acute) Acute dehydration (Acute) Ketosis (Acute) Uncontrolled diabetes mellitus (Acute) DKA (diabetic ketoacidosis) (Acute) Hyperosmolar hyperglycemic state (HHS) (Acute) Diabetic gastroparesis (Acute) Metabolic alkalosis (Acute) Stage 2 acute kidney injury (Acute) Hyponatremia (Acute) DKA (diabetic ketoacidosis) (Acute) Has multiple sexual partners (Acute) Hyperosmolar hyperglycemic state (HHS) (Acute) Acute hypokalemia (Acute) ROSALIO (acute kidney injury) (Acute) Nausea & vomiting (Acute) Hypochloremia (Acute) Alkalosis (Acute) Acute renal failure superimposed on stage 3a chronic kidney disease (Acute) Metabolic alkalosis (Acute) Altered mental status (Acute) Depression (Acute) Acute hyperglycemia (Acute) Nausea & vomiting (Acute) Seizures (Acute) Abnormal CT of brain (Acute) Sepsis (Acute) Hyponatremia (Acute) Pneumonia (Acute) Acute renal failure (Acute) Hypokalemia (Acute) Diabetic gastroparesis (Acute) Diabetic gastroparesis (Acute) CKD stage G3b/A3, GFR 30-44 and albumin creatinine ratio >300 mg/g (Acute) Renal failure (ARF), acute on chronic (Acute) ROSALIO (acute kidney injury) (Acute) Acute hypokalemia (Acute) Acidosis (Acute) Acid-base disorder, mixed (Acute) Acute worsening of stage 4 chronic kidney disease (Acute) Type 1 diabetes mellitus with hyperosmolar hyperglycemic state (HHS) (Acute) Acute hypokalemia (Acute) Nausea & vomiting (Acute) Acute respiratory failure with hypoxia (Acute) Type 1 diabetes mellitus with hyperosmolar hyperglycemic state (HHS) (Acute) Anemia associated with stage 4 chronic renal failure (Acute) DKA, type 1, not at goal (Acute) Metabolic acidosis with respiratory alkalosis (Acute) Gastroparesis (Acute) Tetrahydrocannabinol (THC) use disorder, moderate, dependence (Chronic) Binge eating disorder (Chronic) CKD stage 4 due to type 1 diabetes mellitus (Acute) Diabetic keto-acidosis (Acute) Mental health problem (Chronic) Toxic metabolic encephalopathy (Acute) Munchausen syndrome (Acute) DKA (diabetic ketoacidosis) (Acute) Cutaneous abscess of right axilla (Acute) Medical History Abdominal pain, epigastric Abnormal CT of brain Altered mental status Anxiety Back pain Chronic ulcer of left foot Coffee ground emesis Cutaneous abscess of right axilla Depression Diabetes mellitus type I Age 12, With foot ulcer Diabetic gastroparesis associated with type 1 diabetes mellitus Diabetic neuropathy associated with type 1 diabetes mellitus Diabetic peripheral neuropathy Diabetic retinopathy associated with type 1 diabetes mellitus DKA, type 1 Esophageal candidiasis Gastroenteritis Gastroparesis due to DM GERD (gastroesophageal reflux disease) Hallux valgus (acquired), left foot Has multiple sexual partners History of neuroleptic malignant syndrome To compazine (prochlorperazine). Tolerates promethazine without issue Hyperlipidemia Hypertension, essential labile due to unpredictable Rx absorption with gastroparesis and propensity for dehydration Hold captopril if persistent vomiting occurs or bp less than 120/80 stop coreg and nifedipine Continue clonidine patch#1 Labetalol IV PRN Hypokalemia Connie-[place]rne tear Malnutrition Marijuana use, continuous Nausea and vomiting Non-pressure chronic ulcer of other part of left foot limited to breakdown of skin Other hammer toe(s) (acquired), left foot Peripheral autonomic neuropathy due to DM Physical deconditioning Seizures Sepsis Tardive dyskinesia due to metoclopramide (Reglan) Testosterone deficiency Surgical History History of hand surgery Finger repair History of toe surgery left hallux Family History Mother Atrial fibrillation Essential hypertension Sister Malignant neoplasm of female breast Maternal Grandfather Malignant neoplasm of colon Recorded 11/12/10 Father Essential hypertension Other Adopted DKA, type 1 Social History adopted: Yes household members: family housing: other details: [place] on his parents property marital status: single occupational status: disabled occupation: On disability since 2016 physical activity: walking smoking status: Never smoker alcohol intake frequency: former alcohol drinker substance use type: former substance user seatbelt use: always MEDS/ALLERGIES Home Medications and Allergies Home Medications Medication Instructions Recorded Confirmed Type blood sugar diagnostic (Blood #500 ea 09/10/21 08/18/22 Rx Glucose Test strips) blood-glucose meter #1 ea 09/10/21 08/18/22 Rx lancets #500 ea 09/10/21 08/18/22 Rx insulin syringes (disposable) 1 mL #500 ea 01/12/22 08/18/22 Rx mirtazapine 15 mg disintegrating 15 mg PO HS #90 tabs 06/08/22 08/18/22 Rx tablet clonidine 0.3 mg/24 hr weekly 1 patch TD Fr@1000 #4 ea 06/25/22 08/18/22 Rx transdermal patch diltiazem HCl 30 mg tablet 60 mg PO Q8 #90 tabs 06/25/22 08/18/22 Rx diphenhydramine HCl 25 mg capsule 25 mg PO QHS PRN insomnia #30 caps 06/25/22 08/18/22 Rx (EZ Nite Sleep) ropinirole 0.25 mg tablet 0.5 mg PO HSP PRN restless leg #10 06/25/22 08/18/22 Rx tabs insulin aspart U-100 100 unit/mL See Rx Instructions subcut TID #60 06/26/22 08/18/22 Rx subcutaneous solution (Novolog mL U-100 Insulin aspart) ondansetron 4 mg disintegrating 4 mg PO Q8H cyclic vomiting #120 07/20/22 08/18/22 Rx tablet tabs fluoxetine 20 mg capsule 20 mg PO QDAY #90 caps 08/03/22 08/18/22 Rx promethazine 25 mg rectal 25 mg SD Q6H PRN nausea and 08/03/22 08/18/22 Rx suppository (Promethegan) vomiting #12 ea doxycycline hyclate 100 mg tablet 100 mg PO BID 5 days #10 tabs 08/05/22 08/18/22 Rx famotidine 20 mg tablet 20 mg PO BID #90 tabs 08/10/22 08/18/22 Rx glucagon 3 mg/actuation nasal 3 mg intranasal ONCE PRN 08/10/22 08/18/22 Rx spray (Baqsimi) hypoglycemia #1 ea lorazepam 1 mg tablet 1 - 2 mg PO QDAY anxiety 08/14/22 08/18/22 History insulin glargine 100 unit/mL 10 unit (0.1 mL) subcut HS #10 mL 08/16/22 08/18/22 Rx subcutaneous solution (Lantus U-100 Insulin) sucralfate 1 gram tablet (Carafate) 1 g PO BID #70 tabs 08/16/22 08/18/22 Rx carvedilol 6.25 mg tablet 6.25 mg PO BID #60 tabs 09/07/22 Rx venlafaxine 75 mg capsule,extended 225 mg PO QAM #90 caps 09/07/22 Rx release 24 hr Allergies Allergy/AdvReac Type Severity Reaction Status Date / Time NSAIDS (Non-Steroidal Allergy Unknown Unknown Verified 09/13/22 08:53 Anti-Inflamma metoclopramide [From Reglan] AdvReac Mild Agitated Verified 09/13/22 08:53 prochlorperazine AdvReac Mild "My whole Verified 09/13/22 08:53 [From Compazine] body freaks out." silver AdvReac Mild dystonic Verified 09/13/22 08:53 IV iodine contrast Allergy Unknown Unknown Uncoded 08/18/22 13:36 EXAM Constitutional Vitals: Temp Pulse Resp BP Pulse Ox O2 Del Method O2 Flow Rate 97.4 F 106 H 22 170/88 94 Oxymask 2 09/13/22 08:51 09/13/22 15:01 09/13/22 15:01 09/13/22 15:01 09/13/22 15:01 09/13/22 12:01 09/13/22 12:01 General appearance: average body habitus, cooperative and no acute distress Head Head exam: Present atraumatic, normal inspection and normocephalic ENT ENT exam: Present mucous membranes dry Respiratory Respiratory exam: Present normal respiratory exam and CTAB Cardiovascular Cardiovascular exam: Present normal rate and rhythm GI/Abdominal GI/Abdominal exam: Present normal bowel sounds and soft; Absent distended DATA Data Completed and Pending Labs: Labs from last 24 hours 09/13/22 09/13/22 09/13/22 11:28 09:24 09:15 WBC RBC Hgb Hct MCV MCH MCHC RDW Plt Count MPV Immature Gran % (Auto) Neut % (Auto) Lymph % (Auto) [place] % (Auto) Eos % (Auto) Baso % (Auto) Lymph # (Auto) [place] # (Auto) Eos # (Auto) Baso # (Auto) Immature Gran # Absolute Neutrophils POC VBG pH 7.53 H POC VBG pCO2 at Temp 57.3 H POC VBG pO2 49 H POC VBG HCO3 47.6 H* POC VBG Total CO2 49.0 H* POC Venous O2 Sat 87.0 H POC VBG Base Excess 25.0 H* VBG Lactic Acid 1.2 Sodium Potassium Chloride Carbon Dioxide Anion Gap BUN Creatinine GFR Calculation Glucose Calcium Total Bilirubin AST ALT Alkaline Phosphatase Total Protein Albumin Globulin Albumin/Globulin Ratio Lipase 13 Beta-Hydroxybutyrate Procalcitonin 0.28 H 09/13/22 09/13/22 09:15 09:15 WBC 12.7 H RBC 4.63 Hgb 12.2 L Hct 37.1 L MCV 80.1 MCH 26.3 MCHC 32.9 RDW 15.3 H Plt Count 363 MPV 10.7 Immature Gran % (Auto) 0.2 Neut % (Auto) 84.8 H Lymph % (Auto) 8.5 L [place] % (Auto) 6.0 Eos % (Auto) 0 Baso % (Auto) 0.5 Lymph # (Auto) 1.08 L [place] # (Auto) 0.76 Eos # (Auto) 0 Baso # (Auto) 0.06 Immature Gran # 0.03 Absolute Neutrophils 10.80 H POC VBG pH POC VBG pCO2 at Temp POC VBG pO2 POC VBG HCO3 POC VBG Total CO2 POC Venous O2 Sat POC VBG Base Excess VBG Lactic Acid Sodium 135 Potassium 3.5 Chloride 76 L Carbon Dioxide 33 H Anion Gap 26.0 H BUN 62 H Creatinine 3.8 H GFR Calculation 19 Glucose 285 H Calcium 9.4 Total Bilirubin 0.2 AST 17 ALT 11 Alkaline Phosphatase 198 H Total Protein 8.2 Albumin 4.6 Globulin 3.6 Albumin/Globulin Ratio 1.3 Lipase Beta-Hydroxybutyrate 3.35 H Procalcitonin A/P Assessment and plan (1) Nausea and vomiting: Assessment and plan: - known gastroparesis - antiemetics - trial of CLD Status: Chronic (2) Hypertension, essential: Assessment and plan: - continue clonidine, CCB. - need med reconcilitiation - carvedilol as well? Status: Chronic Comment: labile due to unpredictable Rx absorption with gastroparesis and propensity for dehydration Hold captopril if persistent vomiting occurs or bp less than 120/80 stop coreg and nifedipine Continue clonidine patch#1 Labetalol IV PRN (3) Uncontrolled type 1 diabetes mellitus with diabetic nephropathy, with long- term current use of insulin: Assessment and plan: - pt to manage insulin pump - SSI - lantus 10 u nightlyi Status: Chronic (4) CKD (chronic kidney disease): Assessment and plan: - ROSALIO on CKD - IVF Status: Acute Time Spent With Patient Time: Total time spent is greater than 50% in coordination of care (as documented) at patient's floor/unit and/or counseling patient: Initial: Total time with patient: 55 - 74 minutes
[2022-09-13] MEDS: 0.9 % SODIUM CHLORIDE 1,000 ML IV SCH (16:30)
[2022-09-13] MEDS: INSULIN LISPRO 1 UNIT/0.01 ML UNIT SQ SCH ×2 (17:30→21:12)
[2022-09-13 18:44] LABS: Blood Urea Nitrogen 60 mg/dL (6-20); Calcium 8.4 mg/dL (8.6-10.4); Carbon Dioxide 38 mmol/L (22-30); Chloride 82 mmol/L (96-108); Glomerular Filtration Rate 21; Glucose 215 mg/dL (70-105)
[2022-09-13] MEDS ORDERED: VENLAFAXINE 150 MG CAP.XL.24H PO SCH (21:00)
[2022-09-13] MEDS ORDERED: FLUoxetine HCL 20 MG CAPSULE PO SCH (21:00)
[2022-09-13] MEDS ORDERED: INSULIN GLARGINE, HUMAN 1 UNIT/0.01 ML SQ SCH (21:00)
[2022-09-13] MEDS: HEPARIN 5,000 UNIT/ML VIAL SQ SCH (21:39)
[2022-09-13] MEDS: FAMOTIDINE 20 MG TABLET PO SCH (21:39)
[2022-09-13] MEDS: DILTIAZEM 30 MG TABLET PO SCH (21:39)
[2022-09-13] MEDS: 0.9 % SODIUM CHLORIDE 10 ML SYRINGE IV SCH (21:41)
[2022-09-14] MEDS: 0.9 % SODIUM CHLORIDE 1,000 ML IV SCH ×2 (00:33→09:27)
[2022-09-14] MEDS: 0.9 % SODIUM CHLORIDE 10 ML SYRINGE IV SCH (05:42)
[2022-09-14] MEDS: DILTIAZEM 30 MG TABLET PO SCH (05:48)
[2022-09-14] MEDS: INSULIN LISPRO 1 UNIT/0.01 ML UNIT SQ SCH ×2 (06:48→11:38)
[2022-09-14 07:14] LABS: Basophils # (Auto) 0.09 K/mcL (0.00-0.30); Basophils % (Auto) 0.8 % (0.0-2.0); Eosinophils # (Auto) 0.07 K/mcL (0.00-0.70); Eosinophils % (Auto) 0.6 % (0.0-7.0); Hematocrit 31.8 % (40.1-51.0); Hemoglobin 10.3 g/dL (13.7-17.5); Lymphocytes # (Auto) 1.86 K/mcL (1.50-4.80); Lymphocytes % (Auto) 16.3 % (15.5-49.0); Mean Cell Volume 82.4 fL (80.0-100.0); Mean Corpuscular HGB Conc 32.4 g/dL (31.0-36.0); Mean Platelet Volume 10.7 fL (8.8-12.5); Monocytes # (Auto) 1.16 K/mcL (0.10-0.90); Monocytes % (Auto) 10.1 % (1.0-12.0); Neutrophils % (Auto) 71.9 % (38.0-78.0); Platelet Count 298 K/mcL (140-440); RBC 3.86 M/mcL (4.63-6.08); Red Cell Distribution Width 15.2 % (11.5-14.5); WBC 11.4 K/mcL (4.5-11.0)
[2022-09-14 07:33] LABS: Phosphorous 4.4 mg/dL (2.5-4.5)
[2022-09-14 07:35] LABS: Blood Urea Nitrogen 46 mg/dL (6-20); Calcium 8.5 mg/dL (8.6-10.4); Carbon Dioxide 31 mmol/L (22-30); Chloride 89 mmol/L (96-108); Glomerular Filtration Rate 28; Glucose 128 mg/dL (70-105)
[2022-09-14] MEDS ORDERED: POTASSIUM CHLORIDE 20 MEQ TABLET PO SCH (07:48)
[2022-09-14] MEDS: HEPARIN 5,000 UNIT/ML VIAL SQ SCH (09:26)
[2022-09-14] MEDS: FAMOTIDINE 20 MG TABLET PO SCH (09:27)
--- NOTE | 2022-09-14 10:49 | Discharge Summary ---
Discharge Provider Provider IMPORTANT FOLLOW-UP INFORMATION FOR PCP: Patient information: Note initiated : 09/14/22 at 10:46 am Service Date, if different from initiated Date: [] Patient: Mauri Levine 36 y/o M admitted on 09/13/22 for nausea/vomiting x 2-3 days. Chief Complaint: [] Date of admission: 09/13/22 15:05 Discharge date: 09/14/22 Primary care physician: Flo Peña MD Admitting clinician: ketan snow md Attending physician on admission: ketan snow md Consults: 09/14/22 07:23 Consult to Physician [CONS] Routine Comment: Consulting Provider: Ketan Snow Reason For Exam: Physician to Consult Attending physician on discharge: ketan snow md Discharging clinician: ketan snow md COURSE Hospital Course Hospital course: Mr. Levine is a 36 year old M with IDDM, gastroparesis, frequent admissions for DKA and gastroparesis, and CKD Cr 2.4). He presents with N/V/Diarrhea x one day and reports his insulin pump needle became dislodged overnight. His BS at home was "high" but improved after correcting his insulin pump and resuming insulin. In the ER, workup notable for BUN/Cr 62/3.8, HCO3 33, Cl 76, Na 135, K 3.5. He refused a urinary catheter. He was given 2L IVF. He had no N/V/D in the ER. At the time of my evaluation he requested clear liquids. Sep 14, he was hydrated overnight, labs normalized, glucose controlled, renal function back to baseline CKD. Pt is tolerating CLD and requests discharge home. Discharge diagnosis: ROSALIO on CKD, diabetic gastroparesis Reason for admission: IVF, antiemetics Time Spent with Patient Time attestation: Total time spent providing and/or coordinating discharge services: Time spent: Less than 30 minutes EXAM Constitutional Vitals: Temp Pulse Resp BP Pulse Ox O2 Del Method O2 Flow Rate 97.7 F 91 H 18 162/89 98 Room Air 2 09/14/22 07:57 09/14/22 07:57 09/14/22 07:57 09/14/22 07:57 09/14/22 07:57 09/14/22 07:57 09/13/22 12:01 General appearance: average body habitus and no acute distress Head Head exam: Present atraumatic, normal inspection and normocephalic ENT ENT exam: Present mucous membranes moist GI/Abdominal GI/Abdominal exam: Present normal bowel sounds and soft; Absent distended Neurological Exam Neurological exam: Present CN II-XII intact and oriented X3 Discharge Data Data Completed and Pending Labs on day of discharge: Labs from last 24 hours 09/14/22 09/14/22 09/13/22 06:20 06:20 17:07 WBC 11.4 H RBC 3.86 L Hgb 10.3 L Hct 31.8 L MCV 82.4 MCH 26.7 MCHC 32.4 RDW 15.2 H Plt Count 298 MPV 10.7 Immature Gran % (Auto) 0.3 Neut % (Auto) 71.9 Lymph % (Auto) 16.3 [place] % (Auto) 10.1 Eos % (Auto) 0.6 Baso % (Auto) 0.8 Lymph # (Auto) 1.86 [place] # (Auto) 1.16 H Eos # (Auto) 0.07 Baso # (Auto) 0.09 Immature Gran # 0.04 Absolute Neutrophils 8.21 H POC VBG pH POC VBG pCO2 at Temp POC VBG pO2 POC VBG HCO3 POC VBG Total CO2 POC Venous O2 Sat POC VBG Base Excess VBG Lactic Acid Sodium 132 L 135 Potassium 3.2 L 3.6 Chloride 89 L 82 L Carbon Dioxide 31 H 38 H Anion Gap 12.0 15.0 BUN 46 H 60 H Creatinine 2.8 H 3.5 H GFR Calculation 28 21 Glucose 128 H 215 H Calcium 8.5 L 8.4 L Phosphorus 4.4 Magnesium 2.5 Total Bilirubin AST ALT Alkaline Phosphatase Total Protein Albumin Globulin Albumin/Globulin Ratio Beta-Hydroxybutyrate Procalcitonin 09/13/22 09/13/22 09/13/22 11:28 09:24 09:15 WBC RBC Hgb Hct MCV MCH MCHC RDW Plt Count MPV Immature Gran % (Auto) Neut % (Auto) Lymph % (Auto) [place] % (Auto) Eos % (Auto) Baso % (Auto) Lymph # (Auto) [place] # (Auto) Eos # (Auto) Baso # (Auto) Immature Gran # Absolute Neutrophils POC VBG pH 7.53 H POC VBG pCO2 at Temp 57.3 H POC VBG pO2 49 H POC VBG HCO3 47.6 H* POC VBG Total CO2 49.0 H* POC Venous O2 Sat 87.0 H POC VBG Base Excess 25.0 H* VBG Lactic Acid 1.2 Sodium 135 Potassium 3.5 Chloride 76 L Carbon Dioxide 33 H Anion Gap 26.0 H BUN 62 H Creatinine 3.8 H GFR Calculation 19 Glucose 285 H Calcium 9.4 Phosphorus Magnesium Total Bilirubin 0.2 AST 17 ALT 11 Alkaline Phosphatase 198 H Total Protein 8.2 Albumin 4.6 Globulin 3.6 Albumin/Globulin Ratio 1.3 Beta-Hydroxybutyrate 3.35 H Procalcitonin 0.28 H Discharge Plan Patient/Caregiver Discharge Instructions Activity: increase activity as tolerated Diet: Consistent Carbohydrate Prescriptions: Continued (DME) insulin syringes (disposable) 1 mL syringe See Rx Instructions .Route Qty: 500 0RF Rx Instructions: use for insulin three times daily mirtazapine 15 mg tablet,disintegrating 15 mg PO HS Qty: 90 0RF ondansetron 4 mg tablet,disintegrating 4 mg PO Q8H Qty: 120 0RF fluoxetine 20 mg capsule 20 mg PO QDAY Qty: 90 1RF promethazine [Promethegan] 25 mg suppository 25 mg NE Q6H PRN (Reason: nausea and vomiting) Qty: 12 0RF Baqsimi 3 mg/actuation spray,non-aerosol 3 mg intranasal ONCE PRN (Reason: hypoglycemia) Qty: 1 0RF Rx Instructions: 1 spray intranasal as needed famotidine 20 mg tablet 20 mg PO BID Qty: 90 1RF sucralfate [Carafate] 1 gram tablet 1 g PO BID Qty: 70 0RF venlafaxine 75 mg capsule,extended release 24hr 225 mg PO QAM Qty: 90 5RF carvedilol 6.25 mg tablet 6.25 mg PO BID Qty: 60 5RF (DME) blood-glucose meter Misc See Rx Instructions .Route Qty: 1 3RF Rx Instructions: use to test blood sugar 5 times daily (DME) Blood Glucose Test Strip See Rx Instructions .ROUTE .MEDSUPPLY Qty: 500 3RF Rx Instructions: use to test blood sugar 5 times daily (DME) lancets Misc See Rx Instructions .Route Qty: 500 3RF Rx Instructions: use to test blood sugar 5 times daily clonidine 0.3 mg/24 hr Patch Weekly 1 patch TD Fr@1000 Qty: 4 2RF ropinirole 0.25 mg Tablet 0.5 mg PO HSP PRN (Reason: restless leg) Qty: 10 2RF diltiazem HCl 30 mg Tablet 60 mg PO Q8 Qty: 90 2RF diphenhydramine HCl [EZ Nite Sleep] 25 mg capsule 25 mg PO QHS PRN (Reason: insomnia) Qty: 30 1RF insulin aspart U-100 [Novolog U-100 Insulin aspart] 100 unit/mL solution See Rx Instructions subcut TID Qty: 60 1RF Rx Instructions: subcut three times daily with meals; Moderate Dose Scale Blood Sugar (mg/dL), Units Insulin 70-130, 0 units 131-180, 4 units 181-240, 8 units 241-300, 10 units 301-350, 12 units 351-400, 16 units >400, 20 units and call lorazepam 1 mg tablet 1 - 2 mg PO QDAY insulin glargine [Lantus U-100 Insulin] 100 unit/mL Solution 10 unit subcut HS Qty: 10 2RF Follow Up Plan Follow up with: Flo Peña MD [Primary Care Provider] - Patient Disposition: Home, Self-Care Prognosis: Fair Overall status at discharge: patient is back to baseline Discharge Orders: Discharge Order (Routine); Ordered 09/14/22 Ordered By: Ketan Snow QUALITY VTE Deep Vein Thrombosis/Pulmonary Embolism Present on Admission: No
== END 2022-09-14 12:45 | disposition home or self-care (01) ==
LOC: ED 08:50 → MEDSUR 15:05 → INTOOBSV 15:05
PROVIDERS: ADMIT Internal Medicine; ATTEND Internal Medicine

== ENCOUNTER 2022-11-18 10:44 | Inpatient (IN) ==
--- NOTE | 2022-11-18 10:52 | Emergency Department Note ---
HPI General Chief complaint: Nausea/Vomiting/Diarrhea Stated complaint: N/V Time Seen by Provider: 11/18/22 10:52 Source: patient Mode of arrival: wheelchair Limitations: no limitations History of Present Illness HPI Narrative: Narrative: Patient is a 36-year-old male with a past medical history significant for hyp ertension, hyperlipidemia, and diabetes who presents to the emergency department due to nausea and vomiting. He states that this has become severe today, and that Zofran and promethazine at home are not helping. He endorses tremulousness in his left arm. He also states that he recently fractured his left ankle. He denies any other symptoms or concerns at this time. Related Data Home Medications Medication Instructions Recorded Confirmed lorazepam 1 mg tablet 1 - 2 mg PO QDAY anxiety 08/14/22 11/19/22 insulin glargine 100 unit/mL 10 unit subcut HS PRN if insulin 11/19/22 11/19/22 subcutaneous solution (Lantus pump fail U-100 Insulin) Previous Rx's Medication Instructions Recorded blood sugar diagnostic (Blood #500 ea 09/10/21 Glucose Test strips) blood-glucose meter #1 ea 09/10/21 lancets #500 ea 09/10/21 insulin syringes (disposable) 1 mL #500 ea 01/12/22 mirtazapine 15 mg disintegrating 15 mg PO HS #90 tabs 06/08/22 tablet diphenhydramine HCl 25 mg capsule 25 mg PO QHS PRN insomnia #30 caps 06/25/22 (EZ Nite Sleep) ropinirole 0.25 mg tablet 0.5 mg PO HSP PRN restless leg #10 06/25/22 tabs insulin aspart U-100 100 unit/mL See Rx Instructions subcut TID #60 06/26/22 subcutaneous solution (Novolog mL U-100 Insulin aspart) ondansetron 4 mg disintegrating 4 mg PO Q8H cyclic vomiting #120 07/20/22 tablet tabs fluoxetine 20 mg capsule 20 mg PO QDAY #90 caps 08/03/22 promethazine 25 mg rectal 25 mg IA Q6H PRN nausea and 08/03/22 suppository (Promethegan) vomiting #12 ea famotidine 20 mg tablet 20 mg PO BID #90 tabs 08/10/22 glucagon 3 mg/actuation nasal 3 mg intranasal ONCE PRN 08/10/22 spray (Baqsimi) hypoglycemia #1 ea carvedilol 6.25 mg tablet 6.25 mg PO BID #60 tabs 09/07/22 venlafaxine 75 mg capsule,extended 225 mg PO QAM #90 caps 09/07/22 release 24 hr clonidine 0.3 mg/24 hr weekly 1 patch topical Fr@1000 #4 ea 09/14/22 transdermal patch sucralfate 1 gram tablet (Carafate) 1 g PO BID #70 tabs 09/21/22 diltiazem HCl 60 mg tablet 60 mg PO Q8H 90 days #270 tabs 10/26/22 Allergies Allergy/AdvReac Type Severity Reaction Status Date / Time NSAIDS (Non-Steroidal Allergy Unknown Unknown Verified 11/18/22 10:47 Anti-Inflamma metoclopramide [From Reglan] AdvReac Mild Agitated Verified 11/18/22 10:47 prochlorperazine AdvReac Mild "My whole Verified 11/18/22 10:47 [From Compazine] body freaks out." silver AdvReac Mild dystonic Verified 11/18/22 10:47 IV iodine contrast Allergy Unknown Unknown Uncoded 11/12/22 14:23 Review of Systems ROS ROS Narrative: Narrative: Constitutional: Denies fever or weakness Eyes: Denies eye pain or vision change ENT ED: Denies throat pain or rhinorrhea Cardiovascular: Denies chest pain or edema Respiratory: Denies shortness of breath or cough Gastrointestinal: Reports nausea and vomiting; Denies abdominal pain, diarrhea, constipation, hematochezia or melena Genitourinary: Denies dysuria or frequency Musculoskeletal: Denies back pain or myalgia Integumentary: Denies rash or lesions Neurological: Denies headache, weakness or confusion [facility] Narrative Patient History Narrative: Narrative: Medical/Surgical/Family History All Active Problems (Updated 11/20/22 @ 08:10 by Ab Mittal MD) Testosterone deficiency (Chronic) Nausea and vomiting (Chronic) GERD (gastroesophageal reflux disease) (Chronic) Other hammer toe(s) (acquired), left foot (Chronic) Hypertension, essential (Chronic) Hyperlipidemia (Chronic) History of neuroleptic malignant syndrome (Chronic) Dehydration (Chronic) Drug-induced nausea and vomiting (Acute) Uncontrolled type 1 diabetes mellitus with diabetic nephropathy, with long-term current use of insulin (Chronic) Cyclic vomiting syndrome (Chronic) Type 1 diabetes mellitus with stage 3 chronic kidney disease and hypertension (Chronic) Marijuana use, continuous (Chronic) CKD (chronic kidney disease) (Acute) Nephrotic range proteinuria (Chronic) Controlled type 1 diabetes mellitus with chronic kidney disease (Chronic) Port-A-Cath in place (Acute) Diabetic gastroparesis associated with type 1 diabetes mellitus (Chronic) Diabetic neuropathy associated with type 1 diabetes mellitus (Chronic) Diabetic retinopathy associated with type 1 diabetes mellitus (Chronic) Anxiety (Chronic) Back pain (Chronic) Physical deconditioning (Chronic) Malnutrition (Chronic) Acute dehydration (Acute) Acute hypokalemia (Acute) QT prolongation (Acute) Dehydration (Acute) No-show for appointment (Acute) Intractable cyclical vomiting with nausea (Acute) Diabetic gastroparesis (Chronic) ROSALIO (acute kidney injury) (Acute) Hyperglycemia (Acute) Dehydration (Acute) Major depressive disorder, recurrent (Chronic) Generalized anxiety disorder (Chronic) Trauma and stressor-related disorder (Chronic) Diabetic gastroparesis (Acute) Nausea & vomiting (Acute) Acute dehydration (Acute) Ketosis (Acute) Uncontrolled diabetes mellitus (Acute) DKA (diabetic ketoacidosis) (Acute) Hyperosmolar hyperglycemic state (HHS) (Acute) Diabetic gastroparesis (Acute) Metabolic alkalosis (Acute) Stage 2 acute kidney injury (Acute) Hyponatremia (Acute) DKA (diabetic ketoacidosis) (Acute) Has multiple sexual partners (Acute) Hyperosmolar hyperglycemic state (HHS) (Acute) Acute hypokalemia (Acute) ROSALIO (acute kidney injury) (Acute) Nausea & vomiting (Acute) Hypochloremia (Acute) Alkalosis (Acute) Acute renal failure superimposed on stage 3a chronic kidney disease (Acute) Metabolic alkalosis (Acute) Altered mental status (Acute) Depression (Acute) Acute hyperglycemia (Acute) Nausea & vomiting (Acute) Seizures (Acute) Abnormal CT of brain (Acute) Sepsis (Acute) Hyponatremia (Acute) Pneumonia (Acute) Acute renal failure (Acute) Hypokalemia (Acute) Diabetic gastroparesis (Acute) Diabetic gastroparesis (Acute) CKD stage G3b/A3, GFR 30-44 and albumin creatinine ratio >300 mg/g (Acute) Renal failure (ARF), acute on chronic (Acute) ROSALIO (acute kidney injury) (Acute) Acute hypokalemia (Acute) Acidosis (Acute) Acid-base disorder, mixed (Acute) Acute worsening of stage 4 chronic kidney disease (Acute) Type 1 diabetes mellitus with hyperosmolar hyperglycemic state (HHS) (Acute) Acute hypokalemia (Acute) Nausea & vomiting (Acute) Acute respiratory failure with hypoxia (Acute) Type 1 diabetes mellitus with hyperosmolar hyperglycemic state (HHS) (Acute) Anemia associated with stage 4 chronic renal failure (Acute) DKA, type 1, not at goal (Acute) Metabolic acidosis with respiratory alkalosis (Acute) Gastroparesis (Acute) Tetrahydrocannabinol (THC) use disorder, moderate, dependence (Chronic) Binge eating disorder (Chronic) CKD stage 4 due to type 1 diabetes mellitus (Acute) Diabetic keto-acidosis (Acute) Mental health problem (Chronic) Toxic metabolic encephalopathy (Acute) Munchausen syndrome (Acute) Cutaneous abscess of right axilla (Acute) DKA (diabetic ketoacidosis) (Acute) Anemia of chronic renal failure, stage 4 (severe) (Acute) DKA (diabetic ketoacidosis) (Acute) Vomiting (Acute) Acute dehydration (Acute) Hypoglycemia associated with diabetes (Acute) Ankle fracture, left (Acute) Hyperglycemia due to type 1 diabetes mellitus (Acute) Nausea & vomiting (Acute) Acute hyperglycemia (Acute) Medical History Abdominal pain, epigastric Abnormal CT of brain Altered mental status Anxiety Back pain Chronic ulcer of left foot Coffee ground emesis Cutaneous abscess of right axilla Depression Diabetes mellitus type I Age 12, With foot ulcer Diabetic gastroparesis associated with type 1 diabetes mellitus Diabetic neuropathy associated with type 1 diabetes mellitus Diabetic peripheral neuropathy Diabetic retinopathy associated with type 1 diabetes mellitus DKA, type 1 Esophageal candidiasis Gastroenteritis Gastroparesis due to DM GERD (gastroesophageal reflux disease) Hallux valgus (acquired), left foot Has multiple sexual partners History of neuroleptic malignant syndrome To compazine (prochlorperazine). Tolerates promethazine without issue Hyperlipidemia Hypertension, essential labile due to unpredictable Rx absorption with gastroparesis and propensity f or dehydration Hold captopril if persistent vomiting occurs or bp less than 120/80 stop coreg and nifedipine Continue clonidine patch#1 Labetalol IV PRN Hypokalemia Connie-Byrne tear Malnutrition Marijuana use, continuous Nausea and vomiting Non-pressure chronic ulcer of other part of left foot limited to breakdown of skin Other hammer toe(s) (acquired), left foot Peripheral autonomic neuropathy due to DM Physical deconditioning Seizures Sepsis Tardive dyskinesia due to metoclopramide (Reglan) Testosterone deficiency Surgical History History of hand surgery Finger repair History of toe surgery left hallux Family History Mother Atrial fibrillation Essential hypertension Sister Malignant neoplasm of female breast Maternal Grandfather Malignant neoplasm of colon Recorded 11/12/10 Father Essential hypertension Other Adopted DKA, type 1 Social History Smoking Status: Former smoker Alcohol Intake Frequency: former alcohol drinker Substance Use: former substance user Exam Narrative Narrative: Narrative: General Limitations: no limitations General appearance: Present alert and in no apparent distress; Absent anxious, appears intoxicated or sleepy Head Head: Present atraumatic and normocephalic Eye Eye: Present EOMI; Absent scleral icterus or nystagmus ENT ENT: Present mucous membranes moist; Absent nasal congestion Neck Neck: Present full ROM and trachea midline Chest Chest: Present normal inspection and symmetric chest wall rise Respiratory Respiratory: Present normal lung sounds bilaterally; Absent respiratory distress, rales/crackles, wheezes, stridor or accessory muscle use Cardiovascular Cardiovascular: Present regular rate, normal rhythm and normal heart sounds Adbominal Abdominal: Present soft and normal bowel sounds; Absent distention, tenderness, guarding, rebound or rigidity Extremities Extremities: Present normal inspection and full ROM; Absent pedal edema or pretibial edema Back Back: Present normal inspection and full ROM; Absent CVA tenderness (R) or CVA tenderness (L) Neurological Neurological: Present alert and oriented X3 Psychiatric Psychiatric: Present normal affect and normal mood Skin Skin: Present warm (WNL), dry and normal color Course Vital Signs Vital signs: Vital Signs Temperature 97.2 F 11/18/22 10:45 Pulse Rate 88 11/18/22 10:45 Respiratory Rate 17 11/18/22 10:45 Blood Pressure 124/104 11/18/22 10:45 Pulse Oximetry (%) 99 11/18/22 10:45 Oxygen Delivery Method Room Air 11/18/22 10:45 Temperature 97.9 F 11/19/22 18:02 Pulse Rate 95 H 11/19/22 12:00 Respiratory Rate 22 11/20/22 04:03 Blood Pressure 132/84 11/20/22 02:00 Pulse Oximetry (%) 98 11/19/22 16:00 Oxygen Delivery Method Room Air 11/19/22 20:00 Oxygen Flow Rate (L/min) 2 11/19/22 04:00 MDM MDM Narrative Medical decision making narrative: Narrative: Patient is a 36-year-old male who presents to the emergency department due to nausea and vomiting. Patient has been seen numerous times for diabetic ketoacidosis. Differential also includes gastroenteritis. Patient's labs demonstrate a blood glucose of 1430. Patient does not have an acidosis on blood gas, but but does have large ketones. He has received 2 L of fluids and insulin, but continues to have a blood glucose greater than 700. An insulin drip has been started. I have spoken to Dr. Basilio and he has agreed to see and evaluate patient for admission. Lab Data 11/20/22 04:47 11/20/22 04:47 Labs: Lab Results 11/18/22 11/18/22 11/18/22 Range/Units 10:57 11:01 11:20 WBC 7.4 (4.5-11.0) K/mcL RBC 4.30 L (4.63-6.08) M/mcL Hgb 10.9 L (13.7-17.5) g/dL Hct 38.2 L (40.1-51.0) % POC Hct 40.0 L (41-55) MCV 88.8 (80.0-100.0) fL MCH 25.3 L (26.0-34.0) pg MCHC 28.5 L (31.0-36.0) g/dL RDW 14.6 H (11.5-14.5) % Plt Count 319 (140-440) K/mcL MPV 11.3 (8.8-12.5) fL Immature Gran % (Auto) 0.4 (0.0-0.5) % Neut % (Auto) 86.5 H (38.0-78.0) % Lymph % (Auto) 6.0 L (15.5-49.0) % [place] % (Auto) 6.6 (1.0-12.0) % Eos % (Auto) 0 (0.0-7.0) % Baso % (Auto) 0.5 (0.0-2.0) % Lymph # (Auto) 0.44 L (1.50-4.80) K/mcL [place] # (Auto) 0.49 (0.10-0.90) K/mcL Eos # (Auto) 0 (0.00-0.70) K/mcL Baso # (Auto) 0.04 (0.00-0.30) K/mcL Immature Gran # 0.03 (0.00-0.05) K/mcl Absolute Neutrophils 6.39 (1.80-8.00) K/mcL POC VBG pH 7.38 (7.32-7.42) POC VBG pCO2 at Temp 52.1 H (41-51) POC VBG pO2 34 (25-40) POC VBG HCO3 31.1 H (24-28) POC VBG Total CO2 33.0 H (25-29) POC Venous O2 Sat 63.0 (40-70) POC VBG Base Excess 6.0 H* (-2-2) VBG Lactic Acid 4.6 H* (0.5-2) POC Sodium 110 L* (133-145) Sodium (133-145) mmol/L POC Potassium 4.9 (3.3-5.1) Potassium (3.3-5.1) mmol/L POC Chloride < 65 L (96-108) Chloride (96-108) mmol/L Carbon Dioxide (22-30) mmol/L POC Total CO2 28.0 (22-30) Anion Gap (8.0-16.0) POC BUN 47 H (6-20) BUN (6-20) mg/dL Creatinine (0.7-1.2) mg/dL POC Creatinine 4.3 H (0.6-1.2) GFR Calculation Glucose (70-105) mg/dL POC Glucose > 700 H* (70-105) Osmolality (280-300) mOSM/kg Calcium (8.6-10.4) mg/dL POC WB Ioniz Calcium 0.93 L (1.16-1.32) Phosphorus (2.5-4.5) mg/dL Magnesium (1.6-2.5) mg/dL Total Bilirubin (0.1-1.0) mg/dL AST (<40) U/L ALT (<40) U/L Alkaline Phosphatase (39-117) U/L Total Protein (5.9-8.4) gm/dL Albumin (3.2-5.2) gm/dL Globulin (2.2-3.7) gm/dL Albumin/Globulin Ratio (1.0-2.3) Beta-Hydroxybutyrate (<0.27) mmol/L 11/18/22 11/18/22 11/18/22 Range/Units 11:20 11:20 11:20 WBC (4.5-11.0) K/mcL RBC (4.63-6.08) M/mcL Hgb (13.7-17.5) g/dL Hct (40.1-51.0) % POC Hct (41-55) MCV (80.0-100.0) fL MCH (26.0-34.0) pg MCHC (31.0-36.0) g/dL RDW (11.5-14.5) % Plt Count (140-440) K/mcL MPV (8.8-12.5) fL Immature Gran % (Auto) (0.0-0.5) % Neut % (Auto) (38.0-78.0) % Lymph % (Auto) (15.5-49.0) % [place] % (Auto) (1.0-12.0) % Eos % (Auto) (0.0-7.0) % Baso % (Auto) (0.0-2.0) % Lymph # (Auto) (1.50-4.80) K/mcL [place] # (Auto) (0.10-0.90) K/mcL Eos # (Auto) (0.00-0.70) K/mcL Baso # (Auto) (0.00-0.30) K/mcL Immature Gran # (0.00-0.05) K/mcl Absolute Neutrophils (1.80-8.00) K/mcL POC VBG pH (7.32-7.42) POC VBG pCO2 at Temp (41-51) POC VBG pO2 (25-40) POC VBG HCO3 (24-28) POC VBG Total CO2 (25-29) POC Venous O2 Sat (40-70) POC VBG Base Excess (-2-2) VBG Lactic Acid (0.5-2) POC Sodium (133-145) Sodium 110 L* (133-145) mmol/L POC Potassium (3.3-5.1) Potassium 5.0 (3.3-5.1) mmol/L POC Chloride (96-108) Chloride < 60 L (96-108) mmol/L Carbon Dioxide 27 (22-30) mmol/L POC Total CO2 (22-30) Anion Gap 23.0 H (8.0-16.0) POC BUN (6-20) BUN 53 H (6-20) mg/dL Creatinine 3.7 H (0.7-1.2) mg/dL POC Creatinine (0.6-1.2) GFR Calculation 20 Glucose 1430 H* (70-105) mg/dL POC Glucose (70-105) Osmolality 357 H (280-300) mOSM/kg Calcium 9.0 (8.6-10.4) mg/dL POC WB Ioniz Calcium (1.16-1.32) Phosphorus (2.5-4.5) mg/dL Magnesium (1.6-2.5) mg/dL Total Bilirubin 0.7 (0.1-1.0) mg/dL AST 8 (<40) U/L ALT 10 (<40) U/L Alkaline Phosphatase 201 H (39-117) U/L Total Protein 7.5 (5.9-8.4) gm/dL Albumin 4.1 (3.2-5.2) gm/dL Globulin 3.4 (2.2-3.7) gm/dL Albumin/Globulin Ratio 1.2 (1.0-2.3) Beta-Hydroxybutyrate 8.62 H (<0.27) mmol/L 11/18/22 11/18/22 11/18/22 Range/Units 11:20 13:04 14:17 WBC (4.5-11.0) K/mcL RBC (4.63-6.08) M/mcL Hgb (13.7-17.5) g/dL Hct (40.1-51.0) % POC Hct 37.0 L (41-55) MCV (80.0-100.0) fL MCH (26.0-34.0) pg MCHC (31.0-36.0) g/dL RDW (11.5-14.5) % Plt Count (140-440) K/mcL MPV (8.8-12.5) fL Immature Gran % (Auto) (0.0-0.5) % Neut % (Auto) (38.0-78.0) % Lymph % (Auto) (15.5-49.0) % [place] % (Auto) (1.0-12.0) % Eos % (Auto) (0.0-7.0) % Baso % (Auto) (0.0-2.0) % Lymph # (Auto) (1.50-4.80) K/mcL [place] # (Auto) (0.10-0.90) K/mcL Eos # (Auto) (0.00-0.70) K/mcL Baso # (Auto) (0.00-0.30) K/mcL Immature Gran # (0.00-0.05) K/mcl Absolute Neutrophils (1.80-8.00) K/mcL POC VBG pH (7.32-7.42) POC VBG pCO2 at Temp (41-51) POC VBG pO2 (25-40) POC VBG HCO3 (24-28) POC VBG Total CO2 (25-29) POC Venous O2 Sat (40-70) POC VBG Base Excess (-2-2) VBG Lactic Acid 2.1 H (0.5-2) POC Sodium 115 L* (133-145) Sodium (133-145) mmol/L POC Potassium 4.3 (3.3-5.1) Potassium (3.3-5.1) mmol/L POC Chloride 66 L (96-108) Chloride (96-108) mmol/L Carbon Dioxide (22-30) mmol/L POC Total CO2 33.0 H (22-30) Anion Gap (8.0-16.0) POC BUN 45 H (6-20) BUN (6-20) mg/dL Creatinine (0.7-1.2) mg/dL POC Creatinine 4.1 H (0.6-1.2) GFR Calculation Glucose (70-105) mg/dL POC Glucose > 700 H* (70-105) Osmolality (280-300) mOSM/kg Calcium (8.6-10.4) mg/dL POC WB Ioniz Calcium 0.92 L (1.16-1.32) Phosphorus 9.1 H* (2.5-4.5) mg/dL Magnesium 3.3 H (1.6-2.5) mg/dL Total Bilirubin (0.1-1.0) mg/dL AST (<40) U/L ALT (<40) U/L Alkaline Phosphatase (39-117) U/L Total Protein (5.9-8.4) gm/dL Albumin (3.2-5.2) gm/dL Globulin (2.2-3.7) gm/dL Albumin/Globulin Ratio (1.0-2.3) Beta-Hydroxybutyrate (<0.27) mmol/L Discharge Plan Patient/Caregiver Discharge Instructions Pt seen by [facility]ER/PA only: No Clinical Impression: Nausea & vomiting, Acute hyperglycemia Patient Disposition: Xfer As Inpt ([facility]) Discharge Date/Time: 11/18/22 17:23
[2022-11-18 11:06] LABS: POC Blood Urea Nitrogen 47 (6-20); POC Calcium, Ionized 0.93 (1.16-1.32); POC Chloride < 65 (96-108); POC Creatinine 4.3 (0.6-1.2); POC Glucose, Random > 700 (70-105); POC Potassium 4.9 (3.3-5.1); POC Sodium 110 (133-145)
[2022-11-18] MEDS ORDERED: 0.9 % SODIUM CHLORIDE 1,000 ML IV ONE (11:20)
[2022-11-18] MEDS ORDERED: INSULIN REGULAR, HUMAN 1 UNIT/0.01 ML UNIT IV ONE (11:20)
[2022-11-18] MEDS ORDERED: ONDANSETRON 4 MG/2 ML VIAL IV ONE (11:22)
[2022-11-18 12:04] LABS: Basophils # (Auto) 0.04 K/mcL (0.00-0.30); Basophils % (Auto) 0.5 % (0.0-2.0); Eosinophils # (Auto) 0 K/mcL (0.00-0.70); Eosinophils % (Auto) 0 % (0.0-7.0); Hematocrit 38.2 % (40.1-51.0); Hemoglobin 10.9 g/dL (13.7-17.5); Lymphocytes # (Auto) 0.44 K/mcL (1.50-4.80); Mean Cell Volume 88.8 fL (80.0-100.0); Mean Corpuscular HGB Conc 28.5 g/dL (31.0-36.0); Mean Platelet Volume 11.3 fL (8.8-12.5); Monocytes # (Auto) 0.49 K/mcL (0.10-0.90); Monocytes % (Auto) 6.6 % (1.0-12.0); Neutrophils % (Auto) 86.5 % (38.0-78.0); Platelet Count 319 K/mcL (140-440); Red Cell Distribution Width 14.6 % (11.5-14.5); WBC 7.4 K/mcL (4.5-11.0)
[2022-11-18 13:05] LABS: Beta Hydroxybutyrate 8.62 mmol/L (<0.27)
[2022-11-18 13:07] LABS: POC Blood Urea Nitrogen 45 (6-20); POC Calcium, Ionized 0.92 (1.16-1.32); POC Chloride 66 (96-108); POC Creatinine 4.1 (0.6-1.2); POC Glucose, Random > 700 (70-105); POC Potassium 4.3 (3.3-5.1); POC Sodium 115 (133-145)
[2022-11-18] MEDS ORDERED: LACTATED RINGERS 1,000 ML IV ONE (13:12)
[2022-11-18] MEDS: INSULIN REGULAR, HUMAN 50 UNIT in 0.9 % SODIUM CHLORIDE 99.5 ML IV SCH ×2 (13:25→20:21)
[2022-11-18 13:50] LABS: ALT/SGPT 10 U/L (<40); AST/SGOT 8 U/L (<40); Albumin 4.1 gm/dL (3.2-5.2); Albumin/Globulin Ratio 1.2 (1.0-2.3); Alkaline Phosphatase 201 U/L (39-117); Bilirubin,Total 0.7 mg/dL (0.1-1.0); Blood Urea Nitrogen 53 mg/dL (6-20); Carbon Dioxide 27 mmol/L (22-30); Chloride < 60 mmol/L (96-108); Globulin 3.4 gm/dL (2.2-3.7); Glomerular Filtration Rate 20; Glucose 1430 mg/dL (70-105)
--- NOTE | 2022-11-18 15:47 | Internal Med History&Physical ---
HPI History of Present Illness Patient information: Note initiated : 11/18/22 at 3:43 pm Service Date, if different from initiated Date: [] Patient: Mauri Levine a 36 y/o M admitted on for N/V. Chief Complaint: [] History of present illness: Mr. Levine is a 36 year old M Presents to the ED with nausea vomiting and elevated blood glucose. Patient presented to the ED several days ago after catching his foot on a great falling and fracturing his left lateral malleolus. He was splinted in the ED and was to follow-up with Dr. Louis. Yesterday started noticing elevated blood glucose and then started having increased nausea vomiting. Which progressed to the point today he knew he had to come in. Per family he has not been using his insulin lately. In the ED vitals were mildly tachycardic. He had a lactic acidosis of 4.6 which improved to 2.1 with fluids. He had a [id number] creatinine was 3.7 which is similar to baseline. His blood glucose is 1430. He had an elevated beta hydroxybutyric acid. UA pending. Osmolality pending. Patient has had multiple admissions in the past year. Review of Systems: Pertinent positives as above. Denies headache/fever/chills/chest or abdominal pain/cough/dyspnea/diarrhea. Remaining 10 point review of system reviewed negative General:mildly drowsy, No acute Distress Eyes/N/T: EOMI, PERRL, dry MM Head/Neck: neck supple, normocephalic atraumatic CV: RRR, 3/6SM, normal s1/s2 Pulm: Clear b/l, no wheezing/rhonchi/rales Abd: soft, nontender, +BS x4 Ext: no clubbing/cyanosis/edema Neuro: Mildly drowsy but awakens and answering questions appropriately, no focal deficits, moves all extremities, CN 2-12 grossly intact, sensations intact b/l upper/lower Skin: warm/dry PFSH PFSH All Active Problems (Updated 11/16/22 @ 13:07 by Alok Cullen DO) Testosterone deficiency (Chronic) Nausea and vomiting (Chronic) GERD (gastroesophageal reflux disease) (Chronic) Other hammer toe(s) (acquired), left foot (Chronic) Hypertension, essential (Chronic) Hyperlipidemia (Chronic) History of neuroleptic malignant syndrome (Chronic) Dehydration (Chronic) Drug-induced nausea and vomiting (Acute) Uncontrolled type 1 diabetes mellitus with diabetic nephropathy, with long-term current use of insulin (Chronic) Cyclic vomiting syndrome (Chronic) Type 1 diabetes mellitus with stage 3 chronic kidney disease and hypertension (Chronic) Marijuana use, continuous (Chronic) CKD (chronic kidney disease) (Acute) Nephrotic range proteinuria (Chronic) Controlled type 1 diabetes mellitus with chronic kidney disease (Chronic) Port-A-Cath in place (Acute) Diabetic gastroparesis associated with type 1 diabetes mellitus (Chronic) Diabetic neuropathy associated with type 1 diabetes mellitus (Chronic) Diabetic retinopathy associated with type 1 diabetes mellitus (Chronic) Anxiety (Chronic) Back pain (Chronic) Physical deconditioning (Chronic) Malnutrition (Chronic) Acute dehydration (Acute) Acute hypokalemia (Acute) QT prolongation (Acute) Dehydration (Acute) No-show for appointment (Acute) Intractable cyclical vomiting with nausea (Acute) Diabetic gastroparesis (Chronic) ROSALIO (acute kidney injury) (Acute) Hyperglycemia (Acute) Dehydration (Acute) Major depressive disorder, recurrent (Chronic) Generalized anxiety disorder (Chronic) Trauma and stressor-related disorder (Chronic) Diabetic gastroparesis (Acute) Nausea & vomiting (Acute) Acute dehydration (Acute) Ketosis (Acute) Uncontrolled diabetes mellitus (Acute) DKA (diabetic ketoacidosis) (Acute) Hyperosmolar hyperglycemic state (HHS) (Acute) Diabetic gastroparesis (Acute) Metabolic alkalosis (Acute) Stage 2 acute kidney injury (Acute) Hyponatremia (Acute) DKA (diabetic ketoacidosis) (Acute) Has multiple sexual partners (Acute) Hyperosmolar hyperglycemic state (HHS) (Acute) Acute hypokalemia (Acute) ROSALIO (acute kidney injury) (Acute) Nausea & vomiting (Acute) Hypochloremia (Acute) Alkalosis (Acute) Acute renal failure superimposed on stage 3a chronic kidney disease (Acute) Metabolic alkalosis (Acute) Altered mental status (Acute) Depression (Acute) Acute hyperglycemia (Acute) Nausea & vomiting (Acute) Seizures (Acute) Abnormal CT of brain (Acute) Sepsis (Acute) Hyponatremia (Acute) Pneumonia (Acute) Acute renal failure (Acute) Hypokalemia (Acute) Diabetic gastroparesis (Acute) Diabetic gastroparesis (Acute) CKD stage G3b/A3, GFR 30-44 and albumin creatinine ratio >300 mg/g (Acute) Renal failure (ARF), acute on chronic (Acute) ROSALIO (acute kidney injury) (Acute) Acute hypokalemia (Acute) Acidosis (Acute) Acid-base disorder, mixed (Acute) Acute worsening of stage 4 chronic kidney disease (Acute) Type 1 diabetes mellitus with hyperosmolar hyperglycemic state (HHS) (Acute) Acute hypokalemia (Acute) Nausea & vomiting (Acute) Acute respiratory failure with hypoxia (Acute) Type 1 diabetes mellitus with hyperosmolar hyperglycemic state (HHS) (Acute) Anemia associated with stage 4 chronic renal failure (Acute) DKA, type 1, not at goal (Acute) Metabolic acidosis with respiratory alkalosis (Acute) Gastroparesis (Acute) Tetrahydrocannabinol (THC) use disorder, moderate, dependence (Chronic) Binge eating disorder (Chronic) CKD stage 4 due to type 1 diabetes mellitus (Acute) Diabetic keto-acidosis (Acute) Mental health problem (Chronic) Toxic metabolic encephalopathy (Acute) Munchausen syndrome (Acute) Cutaneous abscess of right axilla (Acute) DKA (diabetic ketoacidosis) (Acute) Anemia of chronic renal failure, stage 4 (severe) (Acute) DKA (diabetic ketoacidosis) (Acute) Vomiting (Acute) Acute dehydration (Acute) Hypoglycemia associated with diabetes (Acute) Ankle fracture, left (Acute) Hyperglycemia due to type 1 diabetes mellitus (Acute) Medical History Abdominal pain, epigastric Abnormal CT of brain Altered mental status Anxiety Back pain Chronic ulcer of left foot Coffee ground emesis Cutaneous abscess of right axilla Depression Diabetes mellitus type I Age 12, With foot ulcer Diabetic gastroparesis associated with type 1 diabetes mellitus Diabetic neuropathy associated with type 1 diabetes mellitus Diabetic peripheral neuropathy Diabetic retinopathy associated with type 1 diabetes mellitus DKA, type 1 Esophageal candidiasis Gastroenteritis Gastroparesis due to DM GERD (gastroesophageal reflux disease) Hallux valgus (acquired), left foot Has multiple sexual partners History of neuroleptic malignant syndrome To compazine (prochlorperazine). Tolerates promethazine without issue Hyperlipidemia Hypertension, essential labile due to unpredictable Rx absorption with gastroparesis and propensity for dehydration Hold captopril if persistent vomiting occurs or bp less than 120/80 stop coreg and nifedipine Continue clonidine patch#1 Labetalol IV PRN Hypokalemia Connie-Byrne tear Malnutrition Marijuana use, continuous Nausea and vomiting Non-pressure chronic ulcer of other part of left foot limited to breakdown of skin Other hammer toe(s) (acquired), left foot Peripheral autonomic neuropathy due to DM Physical deconditioning Seizures Sepsis Tardive dyskinesia due to metoclopramide (Reglan) Testosterone deficiency Surgical History History of hand surgery Finger repair History of toe surgery left hallux Family History Mother Atrial fibrillation Essential hypertension Sister Malignant neoplasm of female breast Maternal Grandfather Malignant neoplasm of colon Recorded 11/12/10 Father Essential hypertension Other Adopted DKA, type 1 Social History adopted: Yes household members: family housing: other details: 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 marital status: single occupational status: disabled occupation: On disability since 2016 physical activity: walking smoking status: Former smoker quit date: 02/12/11 alcohol intake frequency: former alcohol drinker substance use type: former substance user seatbelt use: always MEDS/ALLERGIES Home Medications and Allergies Home Medications Medication Instructions Recorded Confirmed Type blood sugar diagnostic (Blood #500 ea 09/10/21 11/12/22 Rx Glucose Test strips) blood-glucose meter #1 ea 09/10/21 11/12/22 Rx lancets #500 ea 09/10/21 11/12/22 Rx insulin syringes (disposable) 1 mL #500 ea 01/12/22 11/12/22 Rx mirtazapine 15 mg disintegrating 15 mg PO HS #90 tabs 06/08/22 11/12/22 Rx tablet diphenhydramine HCl 25 mg capsule 25 mg PO QHS PRN insomnia #30 caps 06/25/22 11/12/22 Rx (EZ Nite Sleep) ropinirole 0.25 mg tablet 0.5 mg PO HSP PRN restless leg #10 06/25/22 11/12/22 Rx tabs insulin aspart U-100 100 unit/mL See Rx Instructions subcut TID #60 06/26/22 11/12/22 Rx subcutaneous solution (Novolog mL U-100 Insulin aspart) ondansetron 4 mg disintegrating 4 mg PO Q8H cyclic vomiting #120 01/03/23 04/28/23 Rx tablet tabs fluoxetine 20 mg capsule 20 mg PO QDAY #90 caps 08/03/22 11/12/22 Rx promethazine 25 mg rectal 25 mg SD Q6H PRN nausea and 08/03/22 11/12/22 Rx suppository (Promethegan) vomiting #12 ea famotidine 20 mg tablet 20 mg PO BID #90 tabs 08/10/22 11/12/22 Rx glucagon 3 mg/actuation nasal 3 mg intranasal ONCE PRN 08/10/22 11/12/22 Rx spray (Baqsimi) hypoglycemia #1 ea lorazepam 1 mg tablet 1 - 2 mg PO QDAY anxiety 08/14/22 11/12/22 History insulin glargine 100 unit/mL 10 unit (0.1 mL) subcut HS #10 mL 08/16/22 11/12/22 Rx subcutaneous solution (Lantus U-100 Insulin) carvedilol 6.25 mg tablet 6.25 mg PO BID #60 tabs 09/07/22 11/12/22 Rx venlafaxine 75 mg capsule,extended 225 mg PO QAM #90 caps 09/07/22 11/12/22 Rx release 24 hr clonidine 0.3 mg/24 hr weekly 1 patch topical Fr@1000 #4 ea 09/14/22 11/12/22 Rx transdermal patch sucralfate 1 gram tablet (Carafate) 1 g PO BID #70 tabs 09/21/22 11/12/22 Rx diltiazem HCl 60 mg tablet 60 mg PO Q8H 90 days #270 tabs 10/26/22 11/12/22 Rx Allergies Allergy/AdvReac Type Severity Reaction Status Date / Time NSAIDS (Non-Steroidal Allergy Unknown Unknown Verified 11/18/22 10:47 Anti-Inflamma metoclopramide [From Reglan] AdvReac Mild Agitated Verified 11/18/22 10:47 prochlorperazine AdvReac Mild "My whole Verified 11/18/22 10:47 [From Compazine] body freaks out." silver AdvReac Mild dystonic Verified 11/18/22 10:47 IV iodine contrast Allergy Unknown Unknown Uncoded 11/12/22 14:23 EXAM Constitutional Vitals: Temp Pulse Resp BP Pulse Ox O2 Del Method O2 Flow Rate 97.2 F 93 H 20 147/77 100 Nasal Cannula 2 11/18/22 10:45 11/18/22 15:16 11/18/22 15:16 11/18/22 15:16 11/18/22 15:16 11/18/22 15:16 11/18/22 15:16 DATA Data Completed and Pending Labs: Labs from last 24 hours 11/18/22 11/18/22 11/18/22 14:17 13:04 11:20 WBC RBC Hgb Hct POC Hct 37.0 L MCV MCH MCHC RDW Plt Count MPV Immature Gran % (Auto) Neut % (Auto) Lymph % (Auto) [place] % (Auto) Eos % (Auto) Baso % (Auto) Lymph # (Auto) [place] # (Auto) Eos # (Auto) Baso # (Auto) Immature Gran # Absolute Neutrophils POC VBG pH POC VBG pCO2 at Temp POC VBG pO2 POC VBG HCO3 POC VBG Total CO2 POC Venous O2 Sat POC VBG Base Excess VBG Lactic Acid 2.1 H POC Sodium 115 L* Sodium POC Potassium 4.3 Potassium POC Chloride 66 L Chloride Carbon Dioxide POC Total CO2 33.0 H Anion Gap POC BUN 45 H BUN Creatinine POC Creatinine 4.1 H GFR Calculation Glucose POC Glucose > 700 H* Calcium POC WB Ioniz Calcium 0.92 L Total Bilirubin AST ALT Alkaline Phosphatase Total Protein Albumin Globulin Albumin/Globulin Ratio Beta-Hydroxybutyrate 8.62 H 11/18/22 11/18/22 11/18/22 11:20 11:20 11:01 WBC 7.4 RBC 4.30 L Hgb 10.9 L Hct 38.2 L POC Hct 40.0 L MCV 88.8 MCH 25.3 L MCHC 28.5 L RDW 14.6 H Plt Count 319 MPV 11.3 Immature Gran % (Auto) 0.4 Neut % (Auto) 86.5 H Lymph % (Auto) 6.0 L [place] % (Auto) 6.6 Eos % (Auto) 0 Baso % (Auto) 0.5 Lymph # (Auto) 0.44 L [place] # (Auto) 0.49 Eos # (Auto) 0 Baso # (Auto) 0.04 Immature Gran # 0.03 Absolute Neutrophils 6.39 POC VBG pH POC VBG pCO2 at Temp POC VBG pO2 POC VBG HCO3 POC VBG Total CO2 POC Venous O2 Sat POC VBG Base Excess VBG Lactic Acid POC Sodium 110 L* Sodium 110 L* POC Potassium 4.9 Potassium 5.0 POC Chloride < 65 L Chloride < 60 L Carbon Dioxide 27 POC Total CO2 28.0 Anion Gap 23.0 H POC BUN 47 H BUN 53 H Creatinine 3.7 H POC Creatinine 4.3 H GFR Calculation 20 Glucose 1430 H* POC Glucose > 700 H* Calcium 9.0 POC WB Ioniz Calcium 0.93 L Total Bilirubin 0.7 AST 8 ALT 10 Alkaline Phosphatase 201 H Total Protein 7.5 Albumin 4.1 Globulin 3.4 Albumin/Globulin Ratio 1.2 Beta-Hydroxybutyrate 11/18/22 10:57 WBC RBC Hgb Hct POC Hct MCV MCH MCHC RDW Plt Count MPV Immature Gran % (Auto) Neut % (Auto) Lymph % (Auto) [place] % (Auto) Eos % (Auto) Baso % (Auto) Lymph # (Auto) [place] # (Auto) Eos # (Auto) Baso # (Auto) Immature Gran # Absolute Neutrophils POC VBG pH 7.38 POC VBG pCO2 at Temp 52.1 H POC VBG pO2 34 POC VBG HCO3 31.1 H POC VBG Total CO2 33.0 H POC Venous O2 Sat 63.0 POC VBG Base Excess 6.0 H* VBG Lactic Acid 4.6 H* POC Sodium Sodium POC Potassium Potassium POC Chloride Chloride Carbon Dioxide POC Total CO2 Anion Gap POC BUN BUN Creatinine POC Creatinine GFR Calculation Glucose POC Glucose Calcium POC WB Ioniz Calcium Total Bilirubin AST ALT Alkaline Phosphatase Total Protein Albumin Globulin Albumin/Globulin Ratio Beta-Hydroxybutyrate A/P Narrative A/P Narrative: A: *DKA-HHS (h/o DMI with h/o Gastroparesis/Neuropathy), severe: usually triggered by noncompliance and poor self care -BG on admit 1430 *N/V: 2/2 above + likely marijuana hyperemesis vs cyclic vomiting alone or in conjunction with THC, and h/o gastroparesis *pseudoHyponatremia: corrected is 131 *Cannabis use: possible likely Cannabis hyperemesis syndrome *Marijuana use *CKD IV: Follows with Dr. Mills *Metabolic alkalosis: *Volume depletion: *Electrolyte d/o (hypochloremia): *Anemia, chronic: *HTN: On coreg/clonidine/captopril *Anxiety/depression/binge eating disorder: on Fluoxetine *Long QT Syndrome: noted on EKG's since 2019. Pt is on SSRI *GERD: *Left distal Fib Fx: in slint *long-term prognosis guarded if he doesn't become more vigilant in caring for his disease P: -icu monitoring -IVF's -insulin gtt, hold home insulin pump for now -Monitor electrolytes and replace -f/u blood gas, bhb, -osmolality pending -UA pending -clear liquids when patient is tolerant and advance diet as able to gastroparesis diet (low fat, soluble fiber) -Antiemetics that won't prolong QT (Scopolamine,Benzodiazepines) -cont clonidine/BB, restart ACEI once renal appears stable, IV prn BP meds -Home medication reconciliation -left ankle splint, nonweightbearing, crutches, f/u with Dr. Louis -pt/ot -ppx: Heparin/H2 Time Spent With Patient Time: Total time spent is greater than 50% in coordination of care (as documented) at patient's floor/unit and/or counseling patient: Critical Care Time: Yes Total Critical Care Time: 70
[2022-11-18 16:54] LABS: Phosphorous 9.1 mg/dL (2.5-4.5)
[2022-11-18] MEDS ORDERED: MAGNESIUM SULFATE 2 GM/50 ML BAG IV PRN (17:26)
[2022-11-18] MEDS ORDERED: IPRATROPIUM/ALBUTEROL 3 ML AMPUL.NEB NEB PRN (17:26)
[2022-11-18] MEDS ORDERED: POTASSIUM CHLORIDE 40 MEQ in DEXTROSE 5% IN WATER 500 ML IV PRN (17:26)
[2022-11-18] MEDS ORDERED: SENNOSIDES 1 TABLET PO PRN (17:26)
[2022-11-18] MEDS ORDERED: POLYETHYLENE GLYCOL 3350 17 GM PACKET PO PRN (17:26)
[2022-11-18] MEDS ORDERED: ACETAMINOPHEN 325 MG TABLET PO PRN (17:26)
[2022-11-18] MEDS ORDERED: POTASSIUM CHLORIDE 20 MEQ TABLET PO PRN ×2 (17:26)
[2022-11-18] MEDS ORDERED: LABETALOL 5 MG/ML ML IV PRN (17:26)
[2022-11-18] MEDS: 0.9 % SODIUM CHLORIDE 1,000 ML IV SCH (17:41)
[2022-11-18] MEDS: LORazepam 2 MG/ML VIAL IV PRN ×2 (19:29→23:37)
[2022-11-18 19:56] LABS: ALT/SGPT 8 U/L (<40); AST/SGOT 8 U/L (<40); Albumin 3.8 gm/dL (3.2-5.2); Albumin/Globulin Ratio 1.2 (1.0-2.3); Alkaline Phosphatase 176 U/L (39-117); Bilirubin,Total 0.4 mg/dL (0.1-1.0); Blood Urea Nitrogen 48 mg/dL (6-20); Carbon Dioxide 41 mmol/L (22-30); Chloride 70 mmol/L (96-108); Globulin 3.1 gm/dL (2.2-3.7); Glomerular Filtration Rate 21; Glucose 646 mg/dL (70-105)
[2022-11-18] MEDS ORDERED: INSULIN REGULAR, HUMAN 1 UNIT/0.01 ML UNIT ONE (20:19)
[2022-11-18] MEDS ORDERED: SUCRALFATE 1 GM/10 ML ORAL.SUSP PO ONE (20:39)
[2022-11-18] MEDS ORDERED: PHENobarb/HYOSCY/ATROPINE/SCOP 1 DOSE BOTTLE PO ONE (20:39)
[2022-11-18] MEDS: FAMOTIDINE/PF 20 MG/2 ML VIAL IV SCH (21:17)
[2022-11-18] MEDS: HEPARIN 5,000 UNIT/ML VIAL SQ SCH (21:17)
[2022-11-18] MEDS: DEXTROSE 5%-NS 1,000 ML IV SCH (23:09)
[2022-11-19] MEDS: 0.9 % SODIUM CHLORIDE 1,000 ML IV SCH ×3 (00:14→13:29)
[2022-11-19 00:29] LABS: Appearance,Urine CLEAR (Clear); Bilirubin,Urine Negative (Negative); Color,Urine STRAW; Culture Indicated,Urine No; Glucose,Urine (UA) >=500 mg/dL (Negative); Ketones,Urine Negative (Negative); Leukocyte Esterase,Urine Negative /uL (Negative); Nitrate,Urine Negative (Negative); Protein,Urine 100 mg/dL (Negative); Specific Gravity,Urine 1.007 (1.000-1.035); Urine Blood Negative (Negative); Urine RBC 1 /hpf (0-3); Urine Squamous Epithelial Cell 0 /hpf (0-4); Urine WBC < 1 /hpf (0-4); Urobilinogen,Urine Negative
[2022-11-19 06:35] LABS: Basophils # (Auto) 0.05 K/mcL (0.00-0.30); Basophils % (Auto) 0.4 % (0.0-2.0); Eosinophils # (Auto) 0.01 K/mcL (0.00-0.70); Eosinophils % (Auto) 0.1 % (0.0-7.0); Hemoglobin 10.6 g/dL (13.7-17.5); Lymphocytes # (Auto) 1.44 K/mcL (1.50-4.80); Lymphocytes % (Auto) 11.4 % (15.5-49.0); Mean Cell Volume 76.7 fL (80.0-100.0); Mean Corpuscular HGB Conc 33.1 g/dL (31.0-36.0); Mean Platelet Volume 10.4 fL (8.8-12.5); Monocytes # (Auto) 1.06 K/mcL (0.10-0.90); Monocytes % (Auto) 8.4 % (1.0-12.0); Neutrophils % (Auto) 79.3 % (38.0-78.0); Platelet Count 323 K/mcL (140-440); RBC 4.17 M/mcL (4.63-6.08); Red Cell Distribution Width 14.4 % (11.5-14.5); WBC 12.6 K/mcL (4.5-11.0)
[2022-11-19] MEDS: DEXTROSE 5%-NS 1,000 ML IV SCH ×2 (06:41→13:24)
[2022-11-19 07:03] LABS: ALT/SGPT 9 U/L (<40); AST/SGOT 10 U/L (<40); Albumin 3.7 gm/dL (3.2-5.2); Albumin/Globulin Ratio 1.1 (1.0-2.3); Alkaline Phosphatase 168 U/L (39-117); Beta Hydroxybutyrate 0.88 mmol/L (<0.27); Bilirubin,Direct < 0.2 mg/dL (0-0.3); Bilirubin,Total 0.3 mg/dL (0.1-1.0); Blood Urea Nitrogen 41 mg/dL (6-20); Calcium 8.9 mg/dL (8.6-10.4); Carbon Dioxide 34 mmol/L (22-30); Chloride 83 mmol/L (96-108); Globulin 3.3 gm/dL (2.2-3.7); Glomerular Filtration Rate 22; Glucose 318 mg/dL (70-105); Lactate Dehydrogenase 211 U/L (135-225); Phosphorous 3.9 mg/dL (2.5-4.5); Triglycerides 78 mg/dL (<150); Uric Acid 7.1 mg/dL (2.5-8.0)
--- NOTE | 2022-11-19 07:22 | Internal Med Progress Note ---
SUBJECTIVE Subjective Patient information: Note initiated : 11/19/22 at 7:17 am Service Date, if different from initiated Date: [] Patient: Mauri Levine 36 y/o M admitted on 11/18/22 for N/V. Chief Complaint: [] Interval history: History of present illness: Mr. Levine is a 36 year old M Presents to the ED with nausea vomiting and elevated blood glucose. Patient presented to the ED several days ago after catching his foot on a great falling and fracturing his left lateral malleolus. He was splinted in the ED and was to follow-up with Dr. Louis. Yesterday started noticing elevated blood glucose and then started having increased nausea vomiting. Which progressed to the point today he knew he had to come in. Per family he has not been using his insulin lately. In the ED vitals were mildly tachycardic. He had a lactic acidosis of 4.6 which improved to 2.1 with fluids. He had a ywsxs-fm-vmln creatinine was 3.7 which is similar to baseline. His blood glucose is 1430. He had an elevated beta hydroxybutyric acid. UA pending. Osmolality pending. Patient has had multiple admissions in the past year. 5/5 Patient feeling better today. Some nausea but no vomiting. Slept all right. Chemistry including acid-base status improving. Anion gap resolved. Will transition to home insulin pump. Review of Systems: Pertinent positives as above. Denies headache/fever/chills/chest or abdominal pain/cough/dyspnea/diarrhea. Remaining 10 point review of system reviewed negative General: awake, No acute Distress Eyes/N/T: EOMI, Head/Neck: neck supple, CV: RRR, 3/6SM, Pulm: Clear b/l, no wheezing/rhonchi/rales Abd: soft, nontender, +BS x4 Ext: no clubbing/cyanosis/edema Neuro: Alert, no focal deficits, moves all extremities, , sensations intact b/l upper/lower Skin: warm/dry Constitutional Vitals: Vital Signs Temp Pulse Resp BP Pulse Ox O2 Del Method O2 Flow Rate 97.6 F 91 H 15 177/80 97 Nasal Cannula 2 11/18/22 17:57 11/19/22 06:05 11/19/22 06:05 11/19/22 06:00 11/19/22 06:05 11/19/22 04:00 11/19/22 04:00 Period Temp Pulse Resp BP Sys/Menard Pulse Ox O2 Del Method O2 Flow Rate Last 24 Hr 97.2 F-97.6 F 83-101 10-27 104-198/62-123 1-100 Nasal Cannula- Room Air 2-2 Intake and Output 11/18/22 11/19/22 11/19/22 19:59 03:59 11:59 Intake Total 2081 735 1000 Output Total 1810 620 Balance 2081 -1075 380 Weight 71.214 kg Intake & Output: Intake & Output 11/18/22 11/19/22 11/19/22 19:59 03:59 11:59 Intake Total 2081 735 1000 Output Total 1810 620 Balance 2081 -1075 380 Weight 71.214 kg Intake: IV 2081 24 1000 Sodium Chloride 0.9% 1,000 ml @ 1000 Wide Open IV BOLUS ONE Rx#: [id number] Dextrose 5%-Ns IV Solution 1, 1000 000 ml @ 150 mls/hr IV .Q6H40M [facility] Rx#:[id number] HumuLIN R 50 UNIT In Sodium 82 24 Chloride 0.9% 99.5 ml @ 6 UNIT/ HR 12 mls/hr IV DUR [facility] Rx#: [id number] Lactated Ringers 1,000 ml @ 1000 Wide Open IV BOLUS ONE Rx#: [id number] Oral 711 Output: Void Amount 1810 620 Other: Urine Appearance Clear Urine Color Yellow Urine Odor Normal OBJ DATA Labs 11/19/22 05:39 11/19/22 05:38 Labs: Abnormal Lab Results 11/19/22 11/19/22 11/18/22 05:39 05:38 23:55 WBC 12.6 H RBC 4.17 L Hgb 10.6 L Hct 32.0 L POC Hct MCV 76.7 L MCH 25.4 L MCHC RDW Neut % (Auto) 79.3 H Lymph % (Auto) 11.4 L Lymph # (Auto) 1.44 L [place] # (Auto) 1.06 H Absolute Neutrophils 9.98 H POC VBG pCO2 at Temp POC VBG HCO3 POC VBG Total CO2 POC VBG Base Excess VBG Lactic Acid POC Sodium Sodium 130 L Potassium 3.1 L POC Chloride Chloride 83 L Carbon Dioxide 34 H POC Total CO2 Anion Gap POC BUN BUN 41 H Creatinine 3.4 H POC Creatinine Glucose 318 H POC Glucose Osmolality POC WB Ioniz Calcium Phosphorus Magnesium 3.2 H Alkaline Phosphatase 168 H Beta-Hydroxybutyrate 0.88 H Urine Protein 100 A Urine Glucose (UA) >=500 A 11/18/22 11/18/22 11/18/22 18:36 14:17 13:04 WBC RBC Hgb Hct POC Hct 37.0 L MCV MCH MCHC RDW Neut % (Auto) Lymph % (Auto) Lymph # (Auto) [place] # (Auto) Absolute Neutrophils POC VBG pCO2 at Temp POC VBG HCO3 POC VBG Total CO2 POC VBG Base Excess VBG Lactic Acid 2.1 H POC Sodium 115 L* Sodium 126 L Potassium POC Chloride 66 L Chloride 70 L Carbon Dioxide 41 H* POC Total CO2 33.0 H Anion Gap POC BUN 45 H BUN 48 H Creatinine 3.6 H POC Creatinine 4.1 H Glucose 646 H* POC Glucose > 700 H* Osmolality POC WB Ioniz Calcium 0.92 L Phosphorus Magnesium Alkaline Phosphatase 176 H Beta-Hydroxybutyrate Urine Protein Urine Glucose (UA) 11/18/22 11/18/22 11/18/22 11:20 11:20 11:20 WBC RBC Hgb Hct POC Hct MCV MCH MCHC RDW Neut % (Auto) Lymph % (Auto) Lymph # (Auto) [place] # (Auto) Absolute Neutrophils POC VBG pCO2 at Temp POC VBG HCO3 POC VBG Total CO2 POC VBG Base Excess VBG Lactic Acid POC Sodium Sodium Potassium POC Chloride Chloride Carbon Dioxide POC Total CO2 Anion Gap POC BUN BUN Creatinine POC Creatinine Glucose POC Glucose Osmolality 357 H POC WB Ioniz Calcium Phosphorus 9.1 H* Magnesium 3.3 H Alkaline Phosphatase Beta-Hydroxybutyrate 8.62 H Urine Protein Urine Glucose (UA) 11/18/22 11/18/22 11/18/22 11:20 11:20 11:01 WBC RBC 4.30 L Hgb 10.9 L Hct 38.2 L POC Hct 40.0 L MCV MCH 25.3 L MCHC 28.5 L RDW 14.6 H Neut % (Auto) 86.5 H Lymph % (Auto) 6.0 L Lymph # (Auto) 0.44 L [place] # (Auto) Absolute Neutrophils POC VBG pCO2 at Temp POC VBG HCO3 POC VBG Total CO2 POC VBG Base Excess VBG Lactic Acid POC Sodium 110 L* Sodium 110 L* Potassium POC Chloride < 65 L Chloride < 60 L Carbon Dioxide POC Total CO2 Anion Gap 23.0 H POC BUN 47 H BUN 53 H Creatinine 3.7 H POC Creatinine 4.3 H Glucose 1430 H* POC Glucose > 700 H* Osmolality POC WB Ioniz Calcium 0.93 L Phosphorus Magnesium Alkaline Phosphatase 201 H Beta-Hydroxybutyrate Urine Protein Urine Glucose (UA) 11/18/22 10:57 WBC RBC Hgb Hct POC Hct MCV MCH MCHC RDW Neut % (Auto) Lymph % (Auto) Lymph # (Auto) [place] # (Auto) Absolute Neutrophils POC VBG pCO2 at Temp 52.1 H POC VBG HCO3 31.1 H POC VBG Total CO2 33.0 H POC VBG Base Excess 6.0 H* VBG Lactic Acid 4.6 H* POC Sodium Sodium Potassium POC Chloride Chloride Carbon Dioxide POC Total CO2 Anion Gap POC BUN BUN Creatinine POC Creatinine Glucose POC Glucose Osmolality POC WB Ioniz Calcium Phosphorus Magnesium Alkaline Phosphatase Beta-Hydroxybutyrate Urine Protein Urine Glucose (UA) Meds: Medications Acetaminophen (Acetaminophen 325 Mg Tablet) 650 mg PO Q6HP PRN PRN Reason: fever > 101 Albuterol/Ipratropium (Ipratropium/Albuterol 3 Ml Ampul.Neb) 3 ml NEB Q4HP PRN PRN Reason: Shortness Of Breath Diagnostic Test (Pha) (Accu-Chek 1 Each Strip) 1 each FS Q1 KOKO Last Admin: 11/19/22 07:16 Dose: 1 each Famotidine (Famotidine/Pf 20 Mg/2 Ml Vial) 20 mg IV HS KOKO Last Admin: 11/18/22 21:17 Dose: 20 mg Heparin Sodium (Porcine) (Heparin 5,000 Unit/Ml Vial) 5,000 unit SQ Q12 KOKO Last Admin: 11/18/22 21:17 Dose: 5,000 unit Insulin Human Regular 50 unit/ (Sodium Chloride) 100 mls @ 12 mls/hr IV DUR KOKO; Protocol Last Titration: 11/19/22 00:14 Dose: 1 unit/hr, 2 mls/hr Potassium Chloride 40 meq/ (Dextrose) 520 mls @ 130 mls/hr IV UD PRN PRN Reason: Potassium Level < 3 Magnesium Sulfate (Magnesium Sulfate) 2 gm in 50 mls @ 25 mls/hr IV UD PRN PRN Reason: Magnesium Level </= 1.6 Sodium Chloride (Sodium Chloride 0.9%) 1,000 mls @ 150 mls/hr IV .Q6H40M [facility] Last Admin: 11/19/22 06:37 Dose: Not Given Dextrose/Sodium Chloride (Dextrose 5%-Ns Iv Solution) 1,000 mls @ 150 mls/hr IV .Q6H40M [facility] Last Admin: 11/19/22 06:41 Dose: 150 mls/hr Labetalol HCl (Labetalol 5 Mg/Ml Ml) 0 mg IV Q2HP PRN PRN Reason: Hypertension Lorazepam (Lorazepam 2 Mg/Ml Vial) 0.5 mg IV Q4-6HP PRN PRN Reason: Nausea/vomitinAnxiety/Sedation Last Admin: 11/18/22 23:37 Dose: 0.5 mg Polyethylene Glycol (Polyethylene Glycol 3350 17 Gm Packet) 17 gm PO DAILYP PRN PRN Reason: Constipation Potassium Chloride (Potassium Chloride 20 Meq Tablet) 40 meq PO UD PRN PRN Reason: Potassium Level of 3-3.5 Potassium Chloride (Potassium Chloride 20 Meq Tablet) 40 meq PO UD PRN PRN Reason: Potassium Level < 3 Senna (Sennosides 1 Tablet) 2 tab PO DAILYP PRN PRN Reason: Constipation A/P Narrative A/P Narrative: A: *DKA-HHS (h/o DMI with h/o Gastroparesis/Neuropathy/Retinopathy), severe: usually triggered by noncompliance and poor self care -BG on admit 1430 *N/V: 2/2 above + ?marijuana hyperemesis vs cyclic vomiting alone or in conjunction with THC, and h/o gastroparesis *pseudoHyponatremia: *Cannabis use: possible likely Cannabis hyperemesis syndrome *CKD IV: Follows with Dr. Mills *Metabolic alkalosis: *Volume depletion: *Electrolyte d/o (hypochloremia/Hypokalemia): *Anemia, chronic: *HTN: On coreg/clonidine/dilt *Anxiety/depression/binge eating disorder: cont psych meds *Long QT Syndrome: noted on EKG's since 2019. Pt is on SSRI *GERD: *Left distal Fib Fx: in splint *long-term prognosis guarded if he doesn't become more vigilant in caring for his disease P: -IVF's d/c later today -insulin gtt to home insulin pump -Monitor electrolytes and replace -f/u blood gas, bhb, -osmolality f/u -advance diet as tolerated to gastroparesis diet (low fat, soluble fiber) -Antiemetics that won't prolong QT (Scopolamine,Benzodiazepines) -once med red done, cont clonidine/BB, restart ACEI once renal appears stable, IV prn BP meds -Home medication reconciliation -left ankle splint, nonweightbearing, crutches, f/u with Dr. Louis -pt/ot -ppx: Heparin/H2 Time Spent With Patient Time: Total time spent is greater than 50% in coordination of care (as documented) at patient's floor/unit and/or counseling patient: Subsequent: Total time with patient: 50 - 65 Minutes
[2022-11-19] MEDS ORDERED: INSULIN REGULAR, HUMAN 1 UNIT/0.01 ML UNIT IV ONE (09:11)
[2022-11-19] MEDS: HEPARIN 5,000 UNIT/ML VIAL SQ SCH ×2 (09:32→21:49)
[2022-11-19] MEDS ORDERED: POTASSIUM CHLORIDE 20 MEQ PACKET PO ONE (09:41)
[2022-11-19] MEDS: LORazepam 2 MG/ML VIAL IV PRN ×3 (10:23→21:49)
[2022-11-19] MEDS: FAMOTIDINE/PF 20 MG/2 ML VIAL IV SCH (21:50)
[2022-11-20 05:49] LABS: Basophils # (Auto) 0.03 K/mcL (0.00-0.30); Basophils % (Auto) 0.5 % (0.0-2.0); Eosinophils # (Auto) 0.05 K/mcL (0.00-0.70); Eosinophils % (Auto) 0.8 % (0.0-7.0); Hematocrit 31.7 % (40.1-51.0); Hemoglobin 10.2 g/dL (13.7-17.5); Mean Cell Volume 79.3 fL (80.0-100.0); Mean Corpuscular HGB Conc 32.2 g/dL (31.0-36.0); Mean Platelet Volume 10.3 fL (8.8-12.5); Monocytes # (Auto) 0.64 K/mcL (0.10-0.90); Monocytes % (Auto) 9.8 % (1.0-12.0); Neutrophils % (Auto) 65.7 % (38.0-78.0); Platelet Count 279 K/mcL (140-440); WBC 6.5 K/mcL (4.5-11.0)
[2022-11-20 06:08] LABS: ALT/SGPT 10 U/L (<40); AST/SGOT 14 U/L (<40); Albumin 3.4 gm/dL (3.2-5.2); Albumin/Globulin Ratio 1.1 (1.0-2.3); Alkaline Phosphatase 140 U/L (39-117); Bilirubin,Direct < 0.2 mg/dL (0-0.3); Bilirubin,Total 0.2 mg/dL (0.1-1.0); Blood Urea Nitrogen 31 mg/dL (6-20); Calcium 8.9 mg/dL (8.6-10.4); Carbon Dioxide 28 mmol/L (22-30); Chloride 95 mmol/L (96-108); Globulin 3.1 gm/dL (2.2-3.7); Glomerular Filtration Rate 23; Glucose 51 mg/dL (70-105); Lactate Dehydrogenase 193 U/L (135-225); Phosphorous 2.9 mg/dL (2.5-4.5); Triglycerides 119 mg/dL (<150); Uric Acid 6.4 mg/dL (2.5-8.0)
--- NOTE | 2022-11-20 09:32 | Discharge Summary ---
Discharge Provider Provider IMPORTANT FOLLOW-UP INFORMATION FOR PCP: Patient information: Note initiated : 11/20/22 at 9:29 am Service Date, if different from initiated Date: [] Patient: Mauri Levine 36 y/o M admitted on 11/18/22 for N/V. Chief Complaint: [] Date of admission: 11/18/22 17:23 Discharge date: 11/20/22 Primary care physician: Flo Peña MD Consults: 11/18/22 Consult to Physician [CONS] Stat Comment: Consulting Provider: Deangelo Basilio Reason For Exam: Physician to Consult COURSE Hospital Course Hospital course: Mr. Levine is a 36 year old M Presents to the ED with nausea vomiting and elevated blood glucose. Patient presented to the ED several days ago after catching his foot on a great falling and fracturing his left lateral malleolus. He was splinted in the ED and was to follow-up with Dr. Louis. Yesterday started noticing elevated blood glucose and then started having increased nausea vomiting. Which progressed to the point today he knew he had to come in. Per family he has not been using his insulin lately. In the ED vitals were mildly tachycardic. He had a lactic acidosis of 4.6 which improved to 2.1 with fluids. He had a nuwld-ay-vrmh creatinine was 3.7 which is similar to baseline. His blood glucose is 1430. He had an elevated beta hydroxybutyric acid. UA pending. Osmolality pending. Patient has had multiple admissions in the past year. 5/5 Patient feeling better today. Some nausea but no vomiting. Slept all right. Chemistry including acid-base status improving. Anion gap resolved. Will transition to home insulin pump. 5/6 Stable overnight. Leukocytosis resolved, renal function at baseline, potassium normal today. Patient is doing well on the insulin pump. Tolerating a diet well, wants to go home. The patient was discharged home on his prior medications including insulin pump settings. Follow-up with primary care provider. Patient is nonweightbearing to his left lower extremity for the fracture, has a follow-up with orthopedic surgery. Physical exam Head: Atraumatic, normal inspection. Eyes: normal appearance, no scleral icterus. Neck: full ROM Respiratory: no respiratory distress. Cardiovascular: normal rate and rhythm, S1, S2. GI/Abdominal: soft, nontender, no guarding. Extremities: Left ankle and foot and soft cast. Neurological: CN II-XII intact, intact motor, intact sensation. Psychiatric: normal mood. Skin: warm, normal color Discharge diagnosis: Diabetic ketoacidosis Secondary discharge diagnosis: Type 1 diabetes mellitus Time Spent with Patient Time attestation: Total time spent providing and/or coordinating discharge services: Time spent: Less than 30 minutes EXAM Constitutional Vitals: Temp Pulse Resp BP Pulse Ox O2 Del Method O2 Flow Rate 97.9 F 95 H 22 132/84 98 Room Air 2 11/19/22 18:02 11/19/22 12:00 11/20/22 04:03 11/20/22 02:00 11/19/22 16:00 11/19/22 20:00 11/19/22 04:00 Discharge Data Data Completed and Pending Labs on day of discharge: Labs from last 24 hours 11/20/22 11/20/22 04:47 04:47 WBC 6.5 RBC 4.00 L Hgb 10.2 L Hct 31.7 L MCV 79.3 L MCH 25.5 L MCHC 32.2 RDW 15.0 H Plt Count 279 MPV 10.3 Immature Gran % (Auto) 0.2 Neut % (Auto) 65.7 Lymph % (Auto) 23.0 Barren % (Auto) 9.8 Eos % (Auto) 0.8 Baso % (Auto) 0.5 Lymph # (Auto) 1.50 [place]ren # (Auto) 0.64 Eos # (Auto) 0.05 Baso # (Auto) 0.03 Immature Gran # 0.01 Absolute Neutrophils 4.28 Sodium 132 L Potassium 3.5 Chloride 95 L Carbon Dioxide 28 Anion Gap 9.0 BUN 31 H Creatinine 3.3 H GFR Calculation 23 Glucose 51 L Uric Acid 6.4 Calcium 8.9 Phosphorus 2.9 Magnesium 2.6 H Total Bilirubin 0.2 Direct Bilirubin < 0.2 GGT 11 AST 14 ALT 10 Alkaline Phosphatase 140 H Lactate Dehydrogenase 193 Total Protein 6.5 Albumin 3.4 Globulin 3.1 Albumin/Globulin Ratio 1.1 Triglycerides 119 Discharge Plan Patient/Caregiver Discharge Instructions Activity: resume usual activities as tolerated and non-weight bearing Diet: Consistent Carbohydrate Prescriptions: Continued (DME) insulin syringes (disposable) 1 mL syringe See Rx Instructions .Route Qty: 500 0RF Rx Instructions: use for insulin three times daily mirtazapine 15 mg tablet,disintegrating 15 mg PO HS Qty: 90 0RF ondansetron 4 mg tablet,disintegrating 4 mg PO Q8H Qty: 120 0RF fluoxetine 20 mg capsule 20 mg PO QDAY Qty: 90 1RF promethazine [Promethegan] 25 mg suppository 25 mg NV Q6H PRN (Reason: nausea and vomiting) Qty: 12 0RF Baqsimi 3 mg/actuation spray,non-aerosol 3 mg intranasal ONCE PRN (Reason: hypoglycemia) Qty: 1 0RF Rx Instructions: 1 spray intranasal as needed famotidine 20 mg tablet 20 mg PO BID Qty: 90 1RF venlafaxine 75 mg capsule,extended release 24hr 225 mg PO QAM Qty: 90 5RF carvedilol 6.25 mg tablet 6.25 mg PO BID Qty: 60 5RF clonidine 0.3 mg/24 hr patch weekly 1 patch topical Fr@1000 Qty: 4 2RF sucralfate [Carafate] 1 gram tablet 1 g PO BID Qty: 70 0RF diltiazem HCl 60 mg tablet 60 mg PO Q8H 90 Days Qty: 270 0RF (DME) blood-glucose meter Misc See Rx Instructions .Route Qty: 1 3RF Rx Instructions: use to test blood sugar 5 times daily (DME) Blood Glucose Test Strip See Rx Instructions .ROUTE .MEDSUPPLY Qty: 500 3RF Rx Instructions: use to test blood sugar 5 times daily (DME) lancets Misc See Rx Instructions .Route Qty: 500 3RF Rx Instructions: use to test blood sugar 5 times daily ropinirole 0.25 mg Tablet 0.5 mg PO HSP PRN (Reason: restless leg) Qty: 10 2RF diphenhydramine HCl [EZ Nite Sleep] 25 mg capsule 25 mg PO QHS PRN (Reason: insomnia) Qty: 30 1RF insulin aspart U-100 [Novolog U-100 Insulin aspart] 100 unit/mL solution See Rx Instructions subcut TID Qty: 60 1RF Rx Instructions: subcut three times daily with meals; Moderate Dose Scale Blood Sugar (mg/dL), Units Insulin 70-130, 0 units 131-180, 4 units 181-240, 8 units 241-300, 10 units 301-350, 12 units 351-400, 16 units >400, 20 units and call lorazepam 1 mg tablet 1 - 2 mg PO QDAY insulin glargine [Lantus U-100 Insulin] 100 unit/mL solution 10 unit subcut HS PRN (Reason: if insulin pump fail) Rx Instructions: if insulin pump fails Follow Up Plan Follow up with: Flo Peña MD [Primary Care Provider] - Patient Disposition: Home, Self-Care Overall status at discharge: patient is back to baseline Discharge Orders: Discharge Order (Routine); Ordered 11/20/22 Ordered By: Anoop Nash
[2022-11-20] MEDS: HEPARIN 5,000 UNIT/ML VIAL SQ SCH (11:41)
== END 2022-11-20 13:05 | disposition home or self-care (01) | DRG 638 ==
LOC: ED 10:44 → ICU 17:23
PROVIDERS: ADMIT Internal Medicine; ATTEND Internal Medicine

== ENCOUNTER 2022-12-02 08:35 | Inpatient (IN) ==
[2022-12-02] MEDS ORDERED: INSULIN REGULAR, HUMAN 1 UNIT/0.01 ML UNIT IV ONE (08:49)
[2022-12-02] MEDS ORDERED: 0.9 % SODIUM CHLORIDE 1,000 ML IV ONE ×2 (08:49→10:36)
--- NOTE | 2022-12-02 08:52 | Emergency Department Note ---
Nausea/Vomiting/Diarrhea HPI General Chief complaint: Nausea/Vomiting/Diarrhea Stated complaint: Vomiting, elevated BS Time Seen by Provider: 12/02/22 08:44 Source: patient and EMS Mode of arrival: EMS Limitations: no limitations History of Present Illness HPI Narrative: Narrative: The patient presents concerned that his electrolytes are off. Patient is a diabetic and has an insulin pump. He says that he has been vomiting which is not unusual for him due to his gastroparesis. He has also had some soft stool. He does state that he has not vomited in 2 days but has not had any adequate oral intake in the last several days. He says he is afraid to eat or drink because of the vomiting. He also states that he has been hiccuping for the last couple days. Patient states that he feels like his electrolytes are off. Patient states that he has been having trouble managing his blood sugar since yesterday. He states that it was over 300 today. This concerned him and so prompted the visit to the ED. He denies abdominal pain. He denies cough or fever. He denies dysuria. Related Data Home Medications Medication Instructions Recorded Confirmed lorazepam 1 mg tablet 1 - 2 mg PO QDAY anxiety 08/14/22 11/19/22 insulin glargine 100 unit/mL 10 unit subcut HS PRN if insulin 11/19/22 12/02/22 subcutaneous solution (Lantus pump fail U-100 Insulin) nifedipine 30 mg tablet,extended 30 mg PO QDAY 12/02/22 12/02/22 release 24 hr Previous Rx's Medication Instructions Recorded blood sugar diagnostic (Blood #500 ea 09/10/21 Glucose Test strips) blood-glucose meter #1 ea 09/10/21 lancets #500 ea 09/10/21 insulin syringes (disposable) 1 mL #500 ea 01/12/22 mirtazapine 15 mg disintegrating 15 mg PO HS #90 tabs 06/08/22 tablet diphenhydramine HCl 25 mg capsule 25 mg PO QHS PRN insomnia #30 caps 06/25/22 (EZ Nite Sleep) ropinirole 0.25 mg tablet 0.5 mg PO HSP PRN restless leg #10 06/25/22 tabs insulin aspart U-100 100 unit/mL See Rx Instructions subcut TID #60 06/26/22 subcutaneous solution (Novolog mL U-100 Insulin aspart) ondansetron 4 mg disintegrating 4 mg PO Q8H cyclic vomiting #120 07/20/22 tablet tabs fluoxetine 20 mg capsule 20 mg PO QDAY #90 caps 08/03/22 promethazine 25 mg rectal 25 mg MA Q6H PRN nausea and 08/03/22 suppository (Promethegan) vomiting #12 ea famotidine 20 mg tablet 20 mg PO BID #90 tabs 08/10/22 carvedilol 6.25 mg tablet 6.25 mg PO BID #60 tabs 09/07/22 venlafaxine 75 mg capsule,extended 225 mg PO QAM #90 caps 09/07/22 release 24 hr clonidine 0.3 mg/24 hr weekly 1 patch topical Fr@1000 #4 ea 09/14/22 transdermal patch sucralfate 1 gram tablet (Carafate) 1 g PO BID #70 tabs 09/21/22 diltiazem HCl 60 mg tablet 60 mg PO Q8H 90 days #270 tabs 10/26/22 glucagon 3 mg/actuation nasal 3 mg intranasal ONCE PRN 12/02/22 spray (Baqsimi) hypoglycemia #1 ea Allergies Allergy/AdvReac Type Severity Reaction Status Date / Time NSAIDS (Non-Steroidal Allergy Unknown Unknown Verified 12/02/22 08:46 Anti-Inflamma metoclopramide [From Reglan] AdvReac Mild Agitated Verified 12/02/22 08:46 prochlorperazine AdvReac Mild "My whole Verified 12/02/22 08:46 [From Compazine] body freaks out." silver AdvReac Mild dystonic Verified 12/02/22 08:46 IV iodine contrast Allergy Unknown Unknown Uncoded 11/12/22 14:23 Review of Systems ROS ROS Narrative: Narrative: All systems ED: reviewed and negative except as stated. PFSH Narrative Patient History Narrative: Narrative: Medical/Surgical/Family History All Active Problems (Updated 12/02/22 @ 10:45 by Christopher Patterson MD) Testosterone deficiency (Chronic) Nausea and vomiting (Chronic) GERD (gastroesophageal reflux disease) (Chronic) Other hammer toe(s) (acquired), left foot (Chronic) Hypertension, essential (Chronic) Hyperlipidemia (Chronic) History of neuroleptic malignant syndrome (Chronic) Dehydration (Chronic) Drug-induced nausea and vomiting (Acute) Uncontrolled type 1 diabetes mellitus with diabetic nephropathy, with long-term current use of insulin (Chronic) Cyclic vomiting syndrome (Chronic) Type 1 diabetes mellitus with stage 3 chronic kidney disease and hypertension (Chronic) Marijuana use, continuous (Chronic) CKD (chronic kidney disease) (Acute) Nephrotic range proteinuria (Chronic) Controlled type 1 diabetes mellitus with chronic kidney disease (Chronic) Port-A-Cath in place (Acute) Diabetic gastroparesis associated with type 1 diabetes mellitus (Chronic) Diabetic neuropathy associated with type 1 diabetes mellitus (Chronic) Diabetic retinopathy associated with type 1 diabetes mellitus (Chronic) Anxiety (Chronic) Back pain (Chronic) Physical deconditioning (Chronic) Malnutrition (Chronic) Acute dehydration (Acute) Acute hypokalemia (Acute) QT prolongation (Acute) Dehydration (Acute) No-show for appointment (Acute) Intractable cyclical vomiting with nausea (Acute) Diabetic gastroparesis (Chronic) ROSALIO (acute kidney injury) (Acute) Hyperglycemia (Acute) Dehydration (Acute) Major depressive disorder, recurrent (Chronic) Generalized anxiety disorder (Chronic) Trauma and stressor-related disorder (Chronic) Diabetic gastroparesis (Acute) Nausea & vomiting (Acute) Acute dehydration (Acute) Ketosis (Acute) Uncontrolled diabetes mellitus (Acute) DKA (diabetic ketoacidosis) (Acute) Hyperosmolar hyperglycemic state (HHS) (Acute) Diabetic gastroparesis (Acute) Metabolic alkalosis (Acute) Stage 2 acute kidney injury (Acute) Hyponatremia (Acute) DKA (diabetic ketoacidosis) (Acute) Has multiple sexual partners (Acute) Hyperosmolar hyperglycemic state (HHS) (Acute) Acute hypokalemia (Acute) ROSALIO (acute kidney injury) (Acute) Nausea & vomiting (Acute) Hypochloremia (Acute) Alkalosis (Acute) Acute renal failure superimposed on stage 3a chronic kidney disease (Acute) Metabolic alkalosis (Acute) Altered mental status (Acute) Depression (Acute) Acute hyperglycemia (Acute) Nausea & vomiting (Acute) Seizures (Acute) Abnormal CT of brain (Acute) Sepsis (Acute) Hyponatremia (Acute) Pneumonia (Acute) Acute renal failure (Acute) Hypokalemia (Acute) Diabetic gastroparesis (Acute) Diabetic gastroparesis (Acute) CKD stage G3b/A3, GFR 30-44 and albumin creatinine ratio >300 mg/g (Acute) Renal failure (ARF), acute on chronic (Acute) ROSALIO (acute kidney injury) (Acute) Acute hypokalemia (Acute) Acidosis (Acute) Acid-base disorder, mixed (Acute) Acute worsening of stage 4 chronic kidney disease (Acute) Type 1 diabetes mellitus with hyperosmolar hyperglycemic state (HHS) (Acute) Acute hypokalemia (Acute) Nausea & vomiting (Acute) Acute respiratory failure with hypoxia (Acute) Type 1 diabetes mellitus with hyperosmolar hyperglycemic state (HHS) (Acute) Anemia associated with stage 4 chronic renal failure (Acute) DKA, type 1, not at goal (Acute) Metabolic acidosis with respiratory alkalosis (Acute) Gastroparesis (Acute) Tetrahydrocannabinol (THC) use disorder, moderate, dependence (Chronic) Binge eating disorder (Chronic) CKD stage 4 due to type 1 diabetes mellitus (Acute) Diabetic keto-acidosis (Acute) Mental health problem (Chronic) Toxic metabolic encephalopathy (Acute) Munchausen syndrome (Acute) Cutaneous abscess of right axilla (Acute) DKA (diabetic ketoacidosis) (Acute) Anemia of chronic renal failure, stage 4 (severe) (Acute) DKA (diabetic ketoacidosis) (Acute) Vomiting (Acute) Acute dehydration (Acute) Hypoglycemia associated with diabetes (Acute) Ankle fracture, left (Acute) Hyperglycemia due to type 1 diabetes mellitus (Acute) Nausea & vomiting (Acute) Acute hyperglycemia (Acute) DKA (diabetic ketoacidosis) (Acute) Hypermagnesemia (Acute) Medical History Abdominal pain, epigastric Abnormal CT of brain Altered mental status Anxiety Back pain Chronic ulcer of left foot Coffee ground emesis Cutaneous abscess of right axilla Depression Diabetes mellitus type I Age 12, With foot ulcer Diabetic gastroparesis associated with type 1 diabetes mellitus Diabetic neuropathy associated with type 1 diabetes mellitus Diabetic peripheral neuropathy Diabetic retinopathy associated with type 1 diabetes mellitus DKA, type 1 Esophageal candidiasis Gastroenteritis Gastroparesis due to DM GERD (gastroesophageal reflux disease) Hallux valgus (acquired), left foot Has multiple sexual partners History of neuroleptic malignant syndrome To compazine (prochlorperazine). Tolerates promethazine without issue Hyperlipidemia Hypertension, essential labile due to unpredictable Rx absorption with gastroparesis and propensity for dehydration Hold captopril if persistent vomiting occurs or bp less than 120/80 stop coreg and nifedipine Continue clonidine patch#1 Labetalol IV PRN Hypokalemia [place] tear Malnutrition Marijuana use, continuous Nausea and vomiting Non-pressure chronic ulcer of other part of left foot limited to breakdown of skin Other hammer toe(s) (acquired), left foot Peripheral autonomic neuropathy due to DM Physical deconditioning Seizures Sepsis Tardive dyskinesia due to metoclopramide (Reglan) Testosterone deficiency Surgical History History of hand surgery Finger repair History of toe surgery left hallux Family History Mother Atrial fibrillation Essential hypertension Sister Malignant neoplasm of female breast Maternal Grandfather Malignant neoplasm of colon Recorded 11/12/10 Father Essential hypertension Other Adopted DKA, type 1 Social History Smoking Status: Former smoker Alcohol Intake Frequency: former alcohol drinker Substance Use: former substance user Exam Narrative Narrative: Narrative: General Limitations: no limitations General appearance: Present alert and in no apparent distress Head Head: Present atraumatic and normal inspection Eye Eye: Present normal appearance and EOMI ENT ENT: Present mucous membranes dry Neck Neck: Present normal inspection, full ROM and trachea midline Chest Chest: Present normal inspection and symmetric chest wall rise Respiratory Respiratory: Present normal lung sounds bilaterally; Absent respiratory distress Cardiovascular Cardiovascular: Present regular rate and normal rhythm Adbominal Abdominal: Present soft and normal bowel sounds; Absent distention, tenderness or guarding Extremities Extremities: Present normal inspection and full ROM Back Back: Present full ROM; Absent CVA tenderness (R) or CVA tenderness (L) Neurological Neurological: Present alert and oriented X3 Psychiatric Psychiatric: Present normal affect and normal mood Skin Skin: Present warm (WNL) and dry Course Consultations Consultation #1: I spoke to the hospitalist, Dr. Basilio. He agreed to evaluate for local admission Time: 10:45 Vital Signs Vital signs: Vital Signs Temperature 98.0 F 12/02/22 08:37 Pulse Rate 97 H 12/02/22 08:37 Respiratory Rate 16 12/02/22 08:37 Blood Pressure 130/93 12/02/22 08:37 Pulse Oximetry (%) 98 12/02/22 08:37 Oxygen Delivery Method Room Air 12/02/22 08:37 Temperature 98.0 F 12/02/22 08:37 Pulse Rate 85 12/02/22 10:18 Respiratory Rate 16 05/18/23 08:37 Blood Pressure 146/80 05/18/23 10:18 Pulse Oximetry (%) 100 12/02/22 10:18 Oxygen Delivery Method Room Air 12/02/22 08:37 MDM MDM Narrative Medical decision making narrative: Narrative: The patient presents with hyperglycemia. He does appear dehydrated on exam. He has no abdominal tenderness. Concern is that he may be trending towards or in DKA. Plan to give a liter of fluid and 10 units of insulin. We will then check appropriate labs. Lab Data Lab results reviewed: Yes I reviewed the patient's lab results. 12/02/22 09:09 Labs: Lab Results 12/02/22 12/02/22 12/02/22 Range/Units 09:09 09:09 09:09 WBC 13.3 H (4.5-11.0) K/mcL RBC 4.78 (4.63-6.08) M/mcL Hgb 12.2 L (13.7-17.5) g/dL Hct 35.1 L (40.1-51.0) % POC Hct (41-55) MCV 73.4 L (80.0-100.0) fL MCH 25.5 L (26.0-34.0) pg MCHC 34.8 (31.0-36.0) g/dL RDW 14.5 (11.5-14.5) % Plt Count 376 (140-440) K/mcL MPV 10.8 (8.8-12.5) fL Immature Gran % (Auto) 0.3 (0.0-0.5) % Neut % (Auto) 91.3 H (38.0-78.0) % Lymph % (Auto) 7.6 L (15.5-49.0) % [place] % (Auto) 0.6 L (1.0-12.0) % Eos % (Auto) 0 (0.0-7.0) % Baso % (Auto) 0.2 (0.0-2.0) % Lymph # (Auto) 1.01 L (1.50-4.80) K/mcL [place] # (Auto) 0.08 L (0.10-0.90) K/mcL Eos # (Auto) 0 (0.00-0.70) K/mcL Baso # (Auto) 0.03 (0.00-0.30) K/mcL Immature Gran # 0.04 (0.00-0.05) K/mcl Absolute Neutrophils 12.11 H (1.80-8.00) K/mcL POC VBG pH (7.32-7.42) POC VBG pCO2 at Temp (41-51) POC VBG pO2 (25-40) POC VBG HCO3 (24-28) POC VBG Total CO2 (25-29) POC Venous O2 Sat (40-70) POC VBG Base Excess (-2-2) VBG Lactic Acid (0.5-2) POC Sodium (133-145) POC Potassium (3.3-5.1) POC Chloride (96-108) POC Total CO2 (22-30) POC BUN (6-20) POC Creatinine (0.6-1.2) POC Glucose (70-105) POC WB Ioniz Calcium (1.16-1.32) Magnesium 5.1 H* (1.6-2.5) mg/dL Total Bilirubin 0.3 (0.1-1.0) mg/dL Direct Bilirubin < 0.2 (0-0.3) mg/dL AST 17 (<40) U/L ALT 12 (<40) U/L Alkaline Phosphatase 193 H (39-117) U/L Total Protein 7.0 (5.9-8.4) gm/dL Albumin 4.0 (3.2-5.2) gm/dL Globulin 3.0 (2.2-3.7) gm/dL Lipase 12 (7-60) U/L 12/02/22 12/02/22 Range/Units 09:13 09:16 WBC (4.5-11.0) K/mcL RBC (4.63-6.08) M/mcL Hgb (13.7-17.5) g/dL Hct (40.1-51.0) % POC Hct 40.0 L (41-55) MCV (80.0-100.0) fL MCH (26.0-34.0) pg MCHC (31.0-36.0) g/dL RDW (11.5-14.5) % Plt Count (140-440) K/mcL MPV (8.8-12.5) fL Immature Gran % (Auto) (0.0-0.5) % Neut % (Auto) (38.0-78.0) % Lymph % (Auto) (15.5-49.0) % [place] % (Auto) (1.0-12.0) % Eos % (Auto) (0.0-7.0) % Baso % (Auto) (0.0-2.0) % Lymph # (Auto) (1.50-4.80) K/mcL [place] # (Auto) (0.10-0.90) K/mcL Eos # (Auto) (0.00-0.70) K/mcL Baso # (Auto) (0.00-0.30) K/mcL Immature Gran # (0.00-0.05) K/mcl Absolute Neutrophils (1.80-8.00) K/mcL POC VBG pH 7.67 H* (7.32-7.42) POC VBG pCO2 at Temp 40.3 L (41-51) POC VBG pO2 37 (25-40) POC VBG HCO3 46.7 H* (24-28) POC VBG Total CO2 48.0 H* (25-29) POC Venous O2 Sat 83.0 H (40-70) POC VBG Base Excess 26.0 H* (-2-2) VBG Lactic Acid 2.0 (0.5-2) POC Sodium 115 L* (133-145) POC Potassium 3.7 (3.3-5.1) POC Chloride 65 L (96-108) POC Total CO2 41.0 H (22-30) POC BUN 61 H (6-20) POC Creatinine 6.1 H* (0.6-1.2) POC Glucose 488 H* (70-105) POC WB Ioniz Calcium 0.79 L (1.16-1.32) Magnesium (1.6-2.5) mg/dL Total Bilirubin (0.1-1.0) mg/dL Direct Bilirubin (0-0.3) mg/dL AST (<40) U/L ALT (<40) U/L Alkaline Phosphatase (39-117) U/L Total Protein (5.9-8.4) gm/dL Albumin (3.2-5.2) gm/dL Globulin (2.2-3.7) gm/dL Lipase (7-60) U/L CC TIME Critical Care Time Critical Care Time: Yes Total Critical Care Time: 55 Attestation: Without intervention, patient most likely would have a deleterious outcome Discharge Plan Patient/Caregiver Discharge Instructions Pt seen by PRINTED CIRCUIT DESIGNER/PA only: No Clinical Impression: Hypermagnesemia DKA (diabetic ketoacidosis) Qualifiers: Diabetes mellitus type: type 1 Diabetes mellitus complication detail: without coma Qualified Code(s): E10.10 - Type 1 diabetes mellitus with ketoacidosis without coma Patient Disposition: Xfer As Inpt ([facility]) Condition: Critical Follow up with: Flo Peña MD [Primary Care Provider] - Prescriptions: No Action (DME) insulin syringes (disposable) 1 mL syringe See Rx Instructions .Route Qty: 500 0RF Rx Instructions: use for insulin three times daily mirtazapine 15 mg tablet,disintegrating 15 mg PO HS Qty: 90 0RF ondansetron 4 mg tablet,disintegrating 4 mg PO Q8H Qty: 120 0RF fluoxetine 20 mg capsule 20 mg PO QDAY Qty: 90 1RF promethazine [Promethegan] 25 mg suppository 25 mg MA Q6H PRN (Reason: nausea and vomiting) Qty: 12 0RF famotidine 20 mg tablet 20 mg PO BID Qty: 90 1RF venlafaxine 75 mg capsule,extended release 24hr 225 mg PO QAM Qty: 90 5RF carvedilol 6.25 mg tablet 6.25 mg PO BID Qty: 60 5RF clonidine 0.3 mg/24 hr patch weekly 1 patch topical Fr@1000 Qty: 4 2RF sucralfate [Carafate] 1 gram tablet 1 g PO BID Qty: 70 0RF diltiazem HCl 60 mg tablet 60 mg PO Q8H 90 Days Qty: 270 0RF Baqsimi 3 mg/actuation spray,non-aerosol 3 mg intranasal ONCE PRN (Reason: hypoglycemia) Qty: 1 3RF Rx Instructions: 1 spray intranasal as needed (DME) blood-glucose meter Misc See Rx Instructions .Route Qty: 1 3RF Rx Instructions: use to test blood sugar 5 times daily (DME) Blood Glucose Test Strip See Rx Instructions .ROUTE .MEDSUPPLY Qty: 500 3RF Rx Instructions: use to test blood sugar 5 times daily (DME) lancets Misc See Rx Instructions .Route Qty: 500 3RF Rx Instructions: use to test blood sugar 5 times daily ropinirole 0.25 mg Tablet 0.5 mg PO HSP PRN (Reason: restless leg) Qty: 10 2RF diphenhydramine HCl [EZ Nite Sleep] 25 mg capsule 25 mg PO QHS PRN (Reason: insomnia) Qty: 30 1RF insulin aspart U-100 [Novolog U-100 Insulin aspart] 100 unit/mL solution See Rx Instructions subcut TID Qty: 60 1RF Rx Instructions: subcut three times daily with meals; Moderate Dose Scale Blood Sugar (mg/dL), Units Insulin 70-130, 0 units 131-180, 4 units 181-240, 8 units 241-300, 10 units 301-350, 12 units 351-400, 16 units >400, 20 units and call nifedipine 30 mg tablet extended release 24hr 30 mg PO QDAY lorazepam 1 mg tablet 1 - 2 mg PO QDAY insulin glargine [Lantus U-100 Insulin] 100 unit/mL solution 10 unit subcut HS PRN (Reason: if insulin pump fail) Rx Instructions: if insulin pump fails
[2022-12-02 09:21] LABS: POC Calcium, Ionized 0.79 (1.16-1.32); POC Creatinine 6.1 (0.6-1.2); POC Potassium 3.7 (3.3-5.1)
[2022-12-02] MEDS ORDERED: INSULIN REGULAR, HUMAN 50 UNIT in 0.9 % SODIUM CHLORIDE 99.5 ML IV SCH ×2 (09:30→12:12)
[2022-12-02 10:03] LABS: Basophils # (Auto) 0.03 K/mcL (0.00-0.30); Basophils % (Auto) 0.2 % (0.0-2.0); Eosinophils # (Auto) 0 K/mcL (0.00-0.70); Eosinophils % (Auto) 0 % (0.0-7.0); Hematocrit 35.1 % (40.1-51.0); Hemoglobin 12.2 g/dL (13.7-17.5); Lymphocytes # (Auto) 1.01 K/mcL (1.50-4.80); Lymphocytes % (Auto) 7.6 % (15.5-49.0); Mean Cell Volume 73.4 fL (80.0-100.0); Mean Corpuscular HGB Conc 34.8 g/dL (31.0-36.0); Mean Platelet Volume 10.8 fL (8.8-12.5); Monocytes # (Auto) 0.08 K/mcL (0.10-0.90); Monocytes % (Auto) 0.6 % (1.0-12.0); Neutrophils % (Auto) 91.3 % (38.0-78.0); Platelet Count 376 K/mcL (140-440); RBC 4.78 M/mcL (4.63-6.08); Red Cell Distribution Width 14.5 % (11.5-14.5); WBC 13.3 K/mcL (4.5-11.0)
[2022-12-02] MEDS ORDERED: INSULIN REGULAR, HUMAN 50 UNIT in 0.9 % SODIUM CHLORIDE 99.5 ML IV STA (10:05)
[2022-12-02 10:12] LABS: ALT/SGPT 12 U/L (<40); AST/SGOT 17 U/L (<40); Alkaline Phosphatase 193 U/L (39-117); Bilirubin,Direct < 0.2 mg/dL (0-0.3); Bilirubin,Total 0.3 mg/dL (0.1-1.0)
[2022-12-02 11:32] LABS: Blood Urea Nitrogen 72 mg/dL (6-20); Calcium 8.5 mg/dL (8.6-10.4); Carbon Dioxide 34 mmol/L (22-30); Chloride 63 mmol/L (96-108); Glomerular Filtration Rate 15; Glucose 492 mg/dL (70-105)
[2022-12-02] MEDS ORDERED: [UNRECOGNIZED DRUG - REMARK] INTRANASAL PRN (12:12)
[2022-12-02] MEDS ORDERED: PROMETHAZINE 25 MG SUPP.RECT PR PRN (12:14)
[2022-12-02] MEDS ORDERED: POTASSIUM CHLORIDE 40 MEQ in DEXTROSE 5% IN WATER 500 ML IV PRN (13:04)
[2022-12-02] MEDS ORDERED: SENNOSIDES 1 TABLET PO PRN (13:04)
[2022-12-02] MEDS ORDERED: MAGNESIUM SULFATE 2 GM/50 ML BAG IV PRN (13:04)
[2022-12-02] MEDS ORDERED: ONDANSETRON 4 MG/2 ML VIAL IV PRN (13:04)
[2022-12-02] MEDS ORDERED: POTASSIUM CHLORIDE 20 MEQ TABLET PO PRN ×2 (13:04)
[2022-12-02] MEDS ORDERED: IPRATROPIUM/ALBUTEROL 3 ML AMPUL.NEB NEB PRN (13:04)
[2022-12-02] MEDS ORDERED: POLYETHYLENE GLYCOL 3350 17 GM PACKET PO PRN (13:04)
--- NOTE | 2022-12-02 13:04 | Internal Med History&Physical ---
HPI History of Present Illness Patient information: Note initiated : 12/02/22 at 12:53 pm Service Date, if different from initiated Date: [] Patient: Mauri Levine a 36 y/o M admitted on 12/02/22 for Vomiting, elevated BS. Chief Complaint: [] History of present illness: Mr. Levine is a 36 year old M Presents to the ED with similar presentation in from the past. Patient says he developed some nausea vomiting and had a poor appetite and did not eat much for for 5 days and then his blood sugar shot up. He is also been falling lately because when he gets up he gets lightheaded and will fall. In the ED he had a blood gas [id number] which showed significant alkalosis which he has had in the past. Elevated bicarb. Lactate 2.0. Chemistry shows a sodium of 119 with a corrected of 125. Creatinine elevated 4.7. BUN elevated at 72. Anion gap noted at 22. Severely low chloride at 63.Magnesium elevated at 5.1. Beta hydroxybutyric acid and UA pending. Blood glucose of 492. Patient given IV fluid boluses in the ED and started on insulin drip. Patient denies vomiting today. But continued nausea. Poor appetite lightheaded. No chest pain or shortness of breath.No diarrhea. pt last admitted earlier this month. Review of Systems: denies headache/fever/chills/chest or abdominal pain/cough/dyspnea/diarrhea. Otherwise see above. PHYSICAL EXAM General: Alert, Awake, No acute Distress Eyes/N/T: EOMI, no scleral icterus, PERRL, dry MM Head/Neck: neck supple, full ROM, normocephalic atraumatic CV: RRR, 3/6SM, normal s1/s2 Pulm: Clear b/l, no wheezing/rhonchi/rales, no respiratory distress Abd: soft, nontender, +BS x4 Ext: no clubbing/cyanosis/edema, nontender Neuro: Alert, CN 2-12 grossly intact, no focal deficits, moves all extremities, , sensations intact b/l upper/lower Psychiatric: Skin: warm/dry, normal color PFSH PFSH All Active Problems (Updated 12/02/22 @ 10:45 by Christopher Patterson MD) Testosterone deficiency (Chronic) Nausea and vomiting (Chronic) GERD (gastroesophageal reflux disease) (Chronic) Other hammer toe(s) (acquired), left foot (Chronic) Hypertension, essential (Chronic) Hyperlipidemia (Chronic) History of neuroleptic malignant syndrome (Chronic) Dehydration (Chronic) Drug-induced nausea and vomiting (Acute) Uncontrolled type 1 diabetes mellitus with diabetic nephropathy, with long-term current use of insulin (Chronic) Cyclic vomiting syndrome (Chronic) Type 1 diabetes mellitus with stage 3 chronic kidney disease and hypertension (Chronic) Marijuana use, continuous (Chronic) CKD (chronic kidney disease) (Acute) Nephrotic range proteinuria (Chronic) Controlled type 1 diabetes mellitus with chronic kidney disease (Chronic) Port-A-Cath in place (Acute) Diabetic gastroparesis associated with type 1 diabetes mellitus (Chronic) Diabetic neuropathy associated with type 1 diabetes mellitus (Chronic) Diabetic retinopathy associated with type 1 diabetes mellitus (Chronic) Anxiety (Chronic) Back pain (Chronic) Physical deconditioning (Chronic) Malnutrition (Chronic) Acute dehydration (Acute) Acute hypokalemia (Acute) QT prolongation (Acute) Dehydration (Acute) No-show for appointment (Acute) Intractable cyclical vomiting with nausea (Acute) Diabetic gastroparesis (Chronic) ROSALIO (acute kidney injury) (Acute) Hyperglycemia (Acute) Dehydration (Acute) Major depressive disorder, recurrent (Chronic) Generalized anxiety disorder (Chronic) Trauma and stressor-related disorder (Chronic) Diabetic gastroparesis (Acute) Nausea & vomiting (Acute) Acute dehydration (Acute) Ketosis (Acute) Uncontrolled diabetes mellitus (Acute) DKA (diabetic ketoacidosis) (Acute) Hyperosmolar hyperglycemic state (HHS) (Acute) Diabetic gastroparesis (Acute) Metabolic alkalosis (Acute) Stage 2 acute kidney injury (Acute) Hyponatremia (Acute) DKA (diabetic ketoacidosis) (Acute) Has multiple sexual partners (Acute) Hyperosmolar hyperglycemic state (HHS) (Acute) Acute hypokalemia (Acute) ROSALIO (acute kidney injury) (Acute) Nausea & vomiting (Acute) Hypochloremia (Acute) Alkalosis (Acute) Acute renal failure superimposed on stage 3a chronic kidney disease (Acute) Metabolic alkalosis (Acute) Altered mental status (Acute) Depression (Acute) Acute hyperglycemia (Acute) Nausea & vomiting (Acute) Seizures (Acute) Abnormal CT of brain (Acute) Sepsis (Acute) Hyponatremia (Acute) Pneumonia (Acute) Acute renal failure (Acute) Hypokalemia (Acute) Diabetic gastroparesis (Acute) Diabetic gastroparesis (Acute) CKD stage G3b/A3, GFR 30-44 and albumin creatinine ratio >300 mg/g (Acute) Renal failure (ARF), acute on chronic (Acute) ROSALIO (acute kidney injury) (Acute) Acute hypokalemia (Acute) Acidosis (Acute) Acid-base disorder, mixed (Acute) Acute worsening of stage 4 chronic kidney disease (Acute) Type 1 diabetes mellitus with hyperosmolar hyperglycemic state (HHS) (Acute) Acute hypokalemia (Acute) Nausea & vomiting (Acute) Acute respiratory failure with hypoxia (Acute) Type 1 diabetes mellitus with hyperosmolar hyperglycemic state (HHS) (Acute) Anemia associated with stage 4 chronic renal failure (Acute) DKA, type 1, not at goal (Acute) Metabolic acidosis with respiratory alkalosis (Acute) Gastroparesis (Acute) Tetrahydrocannabinol (THC) use disorder, moderate, dependence (Chronic) Binge eating disorder (Chronic) CKD stage 4 due to type 1 diabetes mellitus (Acute) Diabetic keto-acidosis (Acute) Mental health problem (Chronic) Toxic metabolic encephalopathy (Acute) Munchausen syndrome (Acute) Cutaneous abscess of right axilla (Acute) DKA (diabetic ketoacidosis) (Acute) Anemia of chronic renal failure, stage 4 (severe) (Acute) DKA (diabetic ketoacidosis) (Acute) Vomiting (Acute) Acute dehydration (Acute) Hypoglycemia associated with diabetes (Acute) Ankle fracture, left (Acute) Hyperglycemia due to type 1 diabetes mellitus (Acute) Nausea & vomiting (Acute) Acute hyperglycemia (Acute) DKA (diabetic ketoacidosis) (Acute) Hypermagnesemia (Acute) Medical History Abdominal pain, epigastric Abnormal CT of brain Altered mental status Anxiety Back pain Chronic ulcer of left foot Coffee ground emesis Cutaneous abscess of right axilla Depression Diabetes mellitus type I Age 12, With foot ulcer Diabetic gastroparesis associated with type 1 diabetes mellitus Diabetic neuropathy associated with type 1 diabetes mellitus Diabetic peripheral neuropathy Diabetic retinopathy associated with type 1 diabetes mellitus DKA, type 1 Esophageal candidiasis Gastroenteritis Gastroparesis due to DM GERD (gastroesophageal reflux disease) Hallux valgus (acquired), left foot Has multiple sexual partners History of neuroleptic malignant syndrome To compazine (prochlorperazine). Tolerates promethazine without issue Hyperlipidemia Hypertension, essential labile due to unpredictable Rx absorption with gastroparesis and propensity for dehydration Hold captopril if persistent vomiting occurs or bp less than 120/80 stop coreg and nifedipine Continue clonidine patch#1 Labetalol IV PRN Hypokalemia Connie-Byrne tear Malnutrition Marijuana use, continuous Nausea and vomiting Non-pressure chronic ulcer of other part of left foot limited to breakdown of skin Other hammer toe(s) (acquired), left foot Peripheral autonomic neuropathy due to DM Physical deconditioning Seizures Sepsis Tardive dyskinesia due to metoclopramide (Reglan) Testosterone deficiency Surgical History History of hand surgery Finger repair History of toe surgery left hallux Family History Mother Atrial fibrillation Essential hypertension Sister Malignant neoplasm of female breast Maternal Grandfather Malignant neoplasm of colon Recorded 11/12/10 Father Essential hypertension Other Adopted DKA, type 1 Social History adopted: Yes household members: family housing: other details: 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 marital status: single occupational status: disabled occupation: On disability since 2016 physical activity: walking smoking status: Former smoker quit date: 02/12/11 alcohol intake frequency: former alcohol drinker substance use type: former substance user seatbelt use: always MEDS/ALLERGIES Home Medications and Allergies Home Medications Medication Instructions Recorded Confirmed Type blood sugar diagnostic (Blood #500 ea 09/10/21 12/02/22 Rx Glucose Test strips) blood-glucose meter #1 ea 09/10/21 12/02/22 Rx lancets #500 ea 09/10/21 12/02/22 Rx insulin syringes (disposable) 1 mL #500 ea 01/12/22 12/02/22 Rx mirtazapine 15 mg disintegrating 15 mg PO HS #90 tabs 06/08/22 12/02/22 Rx tablet diphenhydramine HCl 25 mg capsule 25 mg PO QHS PRN insomnia #30 caps 06/25/22 12/02/22 Rx (EZ Nite Sleep) ropinirole 0.25 mg tablet 0.5 mg PO HSP PRN restless leg #10 06/25/22 12/02/22 Rx tabs insulin aspart U-100 100 unit/mL See Rx Instructions subcut TID #60 06/26/22 12/02/22 Rx subcutaneous solution (Novolog mL U-100 Insulin aspart) ondansetron 4 mg disintegrating 4 mg PO Q8H cyclic vomiting #120 07/20/22 12/02/22 Rx tablet tabs fluoxetine 20 mg capsule 20 mg PO QDAY #90 caps 08/03/22 12/02/22 Rx promethazine 25 mg rectal 25 mg OH Q6H PRN nausea and 08/03/22 12/02/22 Rx suppository (Promethegan) vomiting #12 ea famotidine 20 mg tablet 20 mg PO BID #90 tabs 08/10/22 12/02/22 Rx lorazepam 1 mg tablet 1 - 2 mg PO QDAY anxiety 08/14/22 12/02/22 History carvedilol 6.25 mg tablet 6.25 mg PO BID #60 tabs 09/07/22 12/02/22 Rx venlafaxine 75 mg capsule,extended 225 mg PO QAM #90 caps 09/07/22 12/02/22 Rx release 24 hr clonidine 0.3 mg/24 hr weekly 1 patch topical Fr@1000 #4 ea 09/14/22 12/02/22 Rx transdermal patch sucralfate 1 gram tablet (Carafate) 1 g PO BID #70 tabs 09/21/22 12/02/22 Rx diltiazem HCl 60 mg tablet 60 mg PO Q8H 90 days #270 tabs 10/26/22 12/02/22 Rx insulin glargine 100 unit/mL 10 unit subcut HS PRN if insulin 11/19/22 12/02/22 History subcutaneous solution (Lantus pump fail U-100 Insulin) amlodipine 10 mg tablet 10 mg PO QDAY 12/02/22 12/02/22 History glucagon 3 mg/actuation nasal 3 mg intranasal ONCE PRN 12/02/22 12/02/22 Rx spray (Baqsimi) hypoglycemia #1 ea nifedipine 30 mg tablet,extended 30 mg PO QDAY 12/02/22 12/02/22 History release 24 hr Allergies Allergy/AdvReac Type Severity Reaction Status Date / Time NSAIDS (Non-Steroidal Allergy Unknown Unknown Verified 12/02/22 12:22 Anti-Inflamma metoclopramide [From Reglan] AdvReac Mild Agitated Verified 12/02/22 12:22 prochlorperazine AdvReac Mild "My whole Verified 12/02/22 12:22 [From Compazine] body freaks out." silver AdvReac Mild dystonic Verified 12/02/22 12:22 IV iodine contrast Allergy Unknown Unknown Uncoded 11/12/22 14:23 EXAM Constitutional Vitals: Temp Pulse Resp BP Pulse Ox O2 Del Method 98.0 F 90 16 153/105 99 Room Air 12/02/22 12:23 12/02/22 12:23 12/02/22 12:23 12/02/22 12:23 12/02/22 12:23 12/02/22 08:37 DATA Data Completed and Pending Labs: Labs from last 24 hours 12/02/22 12/02/22 12/02/22 09:16 09:16 09:13 WBC RBC Hgb Hct POC Hct 40.0 L MCV MCH MCHC RDW Plt Count MPV Immature Gran % (Auto) Neut % (Auto) Lymph % (Auto) [place] % (Auto) Eos % (Auto) Baso % (Auto) Lymph # (Auto) [place] # (Auto) Eos # (Auto) Baso # (Auto) Immature Gran # Absolute Neutrophils POC VBG pH 7.67 H* POC VBG pCO2 at Temp 40.3 L POC VBG pO2 37 POC VBG HCO3 46.7 H* POC VBG Total CO2 48.0 H* POC Venous O2 Sat 83.0 H POC VBG Base Excess 26.0 H* VBG Lactic Acid 2.0 POC Sodium 115 L* Sodium 119 L* POC Potassium 3.7 Potassium 4.0 POC Chloride 65 L Chloride 63 L Carbon Dioxide 34 H POC Total CO2 41.0 H Anion Gap 22.0 H POC BUN 61 H BUN 72 H Creatinine 4.7 H POC Creatinine 6.1 H* GFR Calculation 15 Glucose 492 H* POC Glucose 488 H* Calcium 8.5 L POC WB Ioniz Calcium 0.79 L Magnesium Total Bilirubin Direct Bilirubin AST ALT Alkaline Phosphatase Total Protein Albumin Globulin Lipase 12/02/22 12/02/22 12/02/22 09:09 09:09 09:09 WBC 13.3 H RBC 4.78 Hgb 12.2 L Hct 35.1 L POC Hct MCV 73.4 L MCH 25.5 L MCHC 34.8 RDW 14.5 Plt Count 376 MPV 10.8 Immature Gran % (Auto) 0.3 Neut % (Auto) 91.3 H Lymph % (Auto) 7.6 L [place] % (Auto) 0.6 L Eos % (Auto) 0 Baso % (Auto) 0.2 Lymph # (Auto) 1.01 L [place] # (Auto) 0.08 L Eos # (Auto) 0 Baso # (Auto) 0.03 Immature Gran # 0.04 Absolute Neutrophils 12.11 H POC VBG pH POC VBG pCO2 at Temp POC VBG pO2 POC VBG HCO3 POC VBG Total CO2 POC Venous O2 Sat POC VBG Base Excess VBG Lactic Acid POC Sodium Sodium POC Potassium Potassium POC Chloride Chloride Carbon Dioxide POC Total CO2 Anion Gap POC BUN BUN Creatinine POC Creatinine GFR Calculation Glucose POC Glucose Calcium POC WB Ioniz Calcium Magnesium 5.1 H* Total Bilirubin 0.3 Direct Bilirubin < 0.2 AST 17 ALT 12 Alkaline Phosphatase 193 H Total Protein 7.0 Albumin 4.0 Globulin 3.0 Lipase 12 A/P Narrative A/P Narrative: A: *DKA-HHS (h/o DMI with h/o Gastroparesis/Neuropathy): usually triggered by noncompliance and poor self care *N/V: 2/2 above with gastroparesis and h/o cyclic vomiting and possibly marijuana hyperemesis *Hyponatremia: corrected is 125 *Generalized weakness/Falling upon standing-lightheadedness *Volume Depletion: *Cannabis use: possible Cannabis hyperemesis syndrome *CKD IV: Follows with Dr. Mills *Metabolic alkalosis: *Volume depletion: *Electrolyte d/o (hypochloremia/Hypermag): *Anemia, chronic: *HTN: On coreg/clonidine/captopril *Anxiety/depression/binge eating disorder: on Fluoxetine *Long QT Syndrome: noted on EKG's since 2019. Pt is on SSRI *GERD: *recent Left distal Fib Fx: in spolint *long-term prognosis guarded if he doesn't become more vigilant in caring for his disease P: -insulin gtt, , hold home insulin pump for now -IVF's -Monitor electrolytes and replace -monitor sodium -f/u blood gas, bhb, -osmolality pending -bhb pending -UA pending -clear liquids and advance diet as able to gastroparesis diet (low fat, soluble fiber) -Antiemetics that won't prolong QT (Scopolamine,Benzodiazepines) -cont clonidine/BB, restart ACEI once renal appears stable, IV prn BP meds -pt/ot -ppx: Heparin/H2 Time Spent With Patient Time: Total time spent is greater than 50% in coordination of care (as documented) at patient's floor/unit and/or counseling patient: Critical Care Time: Yes Total Critical Care Time: 65
[2022-12-02] MEDS ORDERED: LABETALOL 5 MG/ML ML IV PRN (13:10)
[2022-12-02] MEDS ORDERED: DEXTROSE 5%-NS 1,000 ML IV SCH ×3 (13:15→18:28)
[2022-12-02 13:19] LABS: Beta Hydroxybutyrate 2.56 mmol/L (<0.27)
[2022-12-02] MEDS: hydrALAZINE 20 MG/ML VIAL IV PRN ×2 (13:23→18:07)
[2022-12-02 14:08] LABS: Appearance,Urine CLEAR (Clear); Bilirubin,Urine Negative (Negative); Color,Urine STRAW; Culture Indicated,Urine No; Glucose,Urine (UA) 150 mg/dL (Negative); Ketones,Urine 5 mg/dL (Negative); Leukocyte Esterase,Urine Negative /uL (Negative); Nitrate,Urine Negative (Negative); Protein,Urine 100 mg/dL (Negative); Specific Gravity,Urine 1.006 (1.000-1.035); Urine Blood Negative (Negative); Urine RBC < 1 /hpf (0-3); Urine Squamous Epithelial Cell 0 /hpf (0-4); Urine WBC < 1 /hpf (0-4); Urobilinogen,Urine Negative
[2022-12-02] MEDS ORDERED: DEXTROSE 50% 50 ML SYRINGE IV ONE ×2 (14:15→14:20)
[2022-12-02] MEDS: SCOPOLAMINE 1 PATCH PATCH TOPICAL SCH (14:37)
[2022-12-02 16:13] LABS: Blood Urea Nitrogen 64 mg/dL (6-20); Carbon Dioxide 32 mmol/L (22-30); Chloride 76 mmol/L (96-108); Glomerular Filtration Rate 17; Glucose 163 mg/dL (70-105)
[2022-12-02] MEDS: CARVEDILOL 6.25 MG TABLET PO SCH (16:29)
[2022-12-02] MEDS: DEXTROSE 5%-NS 1,000 ML IV SCH (18:36)
[2022-12-02] MEDS: DOCUSATE SODIUM 100 MG CAPSULE PO SCH (21:14)
[2022-12-02] MEDS: HEPARIN 5,000 UNIT/ML VIAL SQ SCH (21:14)
[2022-12-02] MEDS: FAMOTIDINE 20 MG TABLET PO SCH (21:15)
[2022-12-02] MEDS: MIRTAZAPINE 15 MG TABLET PO SCH (21:15)
[2022-12-02] MEDS: 0.9 % SODIUM CHLORIDE 10 ML SYRINGE IV SCH (21:15)
[2022-12-02] MEDS ORDERED: diphenhydrAMINE 25 MG CAPSULE PO PRN (21:25)
[2022-12-02] MEDS: LORazepam 1 MG TABLET PO PRN (22:24)
[2022-12-02] MEDS: DILTIAZEM 30 MG TABLET PO SCH (22:30)
[2022-12-02] MEDS: rOPINIRole 0.25 MG TABLET PO PRN (22:37)
[2022-12-03] MEDS: DEXTROSE 5%-NS 1,000 ML IV SCH (06:28)
[2022-12-03 06:43] LABS: Basophils # (Auto) 0.05 K/mcL (0.00-0.30); Basophils % (Auto) 0.5 % (0.0-2.0); Eosinophils # (Auto) 0.08 K/mcL (0.00-0.70); Eosinophils % (Auto) 0.8 % (0.0-7.0); Hematocrit 34.3 % (40.1-51.0); Hemoglobin 11.4 g/dL (13.7-17.5); Lymphocytes % (Auto) 31.7 % (15.5-49.0); Mean Cell Volume 76.7 fL (80.0-100.0); Mean Corpuscular HGB Conc 33.2 g/dL (31.0-36.0); Mean Platelet Volume 10.7 fL (8.8-12.5); Monocytes # (Auto) 0.69 K/mcL (0.10-0.90); Monocytes % (Auto) 6.6 % (1.0-12.0); Neutrophils % (Auto) 59.9 % (38.0-78.0); Platelet Count 332 K/mcL (140-440); RBC 4.47 M/mcL (4.63-6.08); Red Cell Distribution Width 15.2 % (11.5-14.5); WBC 10.4 K/mcL (4.5-11.0)
[2022-12-03] MEDS: DILTIAZEM 30 MG TABLET PO SCH ×3 (06:48→23:18)
[2022-12-03 07:50] LABS: ALT/SGPT 13 U/L (<40); AST/SGOT 15 U/L (<40); Albumin 3.9 gm/dL (3.2-5.2); Albumin/Globulin Ratio 1.4 (1.0-2.3); Alkaline Phosphatase 171 U/L (39-117); Bilirubin,Direct < 0.2 mg/dL (0-0.3); Bilirubin,Total 0.2 mg/dL (0.1-1.0); Blood Urea Nitrogen 55 mg/dL (6-20); Calcium 8.7 mg/dL (8.6-10.4); Carbon Dioxide 30 mmol/L (22-30); Chloride 88 mmol/L (96-108); Globulin 2.8 gm/dL (2.2-3.7); Glomerular Filtration Rate 17; Glucose 111 mg/dL (70-105); Lactate Dehydrogenase 231 U/L (135-225); Phosphorous 3.5 mg/dL (2.5-4.5); Triglycerides 123 mg/dL (<150); Uric Acid 8.2 mg/dL (2.5-8.0)
--- NOTE | 2022-12-03 07:54 | Internal Med Progress Note ---
SUBJECTIVE Subjective Patient information: Note initiated : 12/03/22 at 7:50 am Service Date, if different from initiated Date: [] Patient: Mauri Levine a 36 y/o M admitted on 12/02/22 for Vomiting, elevated BS. Chief Complaint: [] Interval history: History of present illness: Mr. Levine is a 36 year old M Presents to the ED with similar presentation in from the past. Patient says he developed some nausea vomiting and had a poor appetite and did not eat much for for 5 days and then his blood sugar shot up. He is also been falling lately because when he gets up he gets lightheaded and will fall. In the ED he had a blood gas [id number] which showed significant alkalosis which he has had in the past. Elevated bicarb. Lactate 2.0. Chemistry shows a sodium of 119 with a corrected of 125. Creatinine elevated 4.7. BUN elevated at 72. Anion gap noted at 22. Severely low chloride at 63.Magnesium elevated at 5.1. Beta hydroxybutyric acid and UA pending. Blood glucose of 492. Patient given IV fluid boluses in the ED and started on insulin drip. Patient denies vomiting today. But continued nausea. Poor appetite lighthead ed. No chest pain or shortness of breath.No diarrhea. pt last admitted earlier this month. 12/03 Patient started back on insulin pump. Patient tolerating oral diet. Will monitor blood glucose closely today. Patient also likely needs long-term placement. Hyponatremia improving. Renal function stable. Magnesium still elevated but improving. Review of Systems: denies headache/fever/chills/chest or abdominal pain/cough/dyspnea/diarrhea. Otherwise see above. PHYSICAL EXAM General: Alert, Awake, No acute Distress Eyes/N/T: EOMI, no scleral icterus, Head/Neck: neck supple, full ROM, CV: RRR, 3/6SM, Pulm: Clear b/l, no wheezing/rhonchi/rales, no respiratory distress Abd: soft, nontender, +BS x4 Ext: no clubbing/cyanosis/edema, nontender Neuro: Alert, no focal deficits, moves all extremities, , sensations intact b/l upper/lower Psychiatric: Skin: warm/dry, normal color Constitutional Vitals: Vital Signs Temp Pulse Resp BP Pulse Ox O2 Del Method 98.2 F 77 24 H 137/68 100 Room Air 12/03/22 04:01 12/03/22 06:59 12/03/22 06:59 12/03/22 06:01 12/03/22 06:59 12/03/22 02:00 Period Temp Pulse Resp BP Sys/Menard Pulse Ox O2 Del Method O2 Flow Rate Last 24 Hr 97.2 F-99.7 F 69-98 5-24 87-172/52-148 96-100 Room Air-Room Air Intake and Output 12/02/22 12/03/22 12/03/22 19:59 03:59 11:59 Intake Total 2456 1141 Output Total 1390 1300 825 Balance 1066 -159 -825 Weight 68.152 kg 71.894 kg Intake & Output: Intake & Output 12/02/22 12/03/22 12/03/22 19:59 03:59 11:59 Intake Total 2456 1141 Output Total 1390 1300 825 Balance 1066 -159 -825 Weight 68.152 kg 71.894 kg Intake: IV 1356 661 Sodium Chloride 0.9% 1,000 ml @ 500 Wide Open IV BOLUS ONE Rx#: [id number] Dextrose 5%-Ns IV Solution 1, 813 118 000 ml @ 84 mls/hr IV .[id number] [facility] Rx#:[id number] HumuLIN R 50 UNIT In Sodium 43 23 Chloride 0.9% 99.5 ml @ 13.6 mls/hr IV NOW STA Rx#:[id number] Potassium Chloride 40 Meq In 520 Dextrose 5% in Water 500 ml @ 130 mls/hr IV UD PRN Rx#: [id number] Oral 1100 480 Output: Void Amount 1390 1300 825 Other: Meal Dinner Snack Percent of Meal Consumed 100% 100% Feeding Ability Independent Independent Urine Appearance Clear Clear Clear Urine Color Yellow Yellow Pale Pale Urine Odor Normal Normal OBJ DATA Labs 12/03/22 05:36 12/03/22 05:36 Labs: Abnormal Lab Results 12/03/22 12/03/22 12/02/22 05:36 05:36 15:01 WBC RBC 4.47 L Hgb 11.4 L Hct 34.3 L POC Hct MCV 76.7 L MCH 25.5 L RDW 15.2 H Neut % (Auto) Lymph % (Auto) [place] % (Auto) Lymph # (Auto) [place] # (Auto) Absolute Neutrophils POC VBG pH POC VBG pCO2 at Temp POC VBG HCO3 POC VBG Total CO2 POC Venous O2 Sat POC VBG Base Excess POC Sodium Sodium 132 L 124 L Potassium 2.8 L* POC Chloride Chloride 88 L 76 L Carbon Dioxide 32 H POC Total CO2 Anion Gap POC BUN BUN 55 H 64 H Creatinine 4.2 H 4.2 H POC Creatinine Glucose 111 H 163 H POC Glucose Osmolality Uric Acid 8.2 H Calcium POC WB Ioniz Calcium Ionized Calcium Lorraine 0.76 L Magnesium 4.2 H* Alkaline Phosphatase 171 H Lactate Dehydrogenase 231 H Beta-Hydroxybutyrate Urine Protein Urine Glucose (UA) Urine Ketones 12/02/22 12/02/22 12/02/22 13:00 09:16 09:16 WBC RBC Hgb Hct POC Hct 40.0 L MCV MCH RDW Neut % (Auto) Lymph % (Auto) [place] % (Auto) Lymph # (Auto) [place] # (Auto) Absolute Neutrophils POC VBG pH POC VBG pCO2 at Temp POC VBG HCO3 POC VBG Total CO2 POC Venous O2 Sat POC VBG Base Excess POC Sodium 115 L* Sodium 119 L* Potassium POC Chloride 65 L Chloride 63 L Carbon Dioxide 34 H POC Total CO2 41.0 H Anion Gap 22.0 H POC BUN 61 H BUN 72 H Creatinine 4.7 H POC Creatinine 6.1 H* Glucose 492 H* POC Glucose 488 H* Osmolality Uric Acid Calcium 8.5 L POC WB Ioniz Calcium 0.79 L Ionized Calcium Lorraine Magnesium Alkaline Phosphatase Lactate Dehydrogenase Beta-Hydroxybutyrate Urine Protein 100 A Urine Glucose (UA) 150 A Urine Ketones 5 A 12/02/22 12/02/22 12/02/22 09:13 09:09 09:09 WBC RBC Hgb Hct POC Hct MCV MCH RDW Neut % (Auto) Lymph % (Auto) [place] % (Auto) Lymph # (Auto) [place] # (Auto) Absolute Neutrophils POC VBG pH 7.67 H* POC VBG pCO2 at Temp 40.3 L POC VBG HCO3 46.7 H* POC VBG Total CO2 48.0 H* POC Venous O2 Sat 83.0 H POC VBG Base Excess 26.0 H* POC Sodium Sodium Potassium POC Chloride Chloride Carbon Dioxide POC Total CO2 Anion Gap POC BUN BUN Creatinine POC Creatinine Glucose POC Glucose Osmolality 303 H Uric Acid Calcium POC WB Ioniz Calcium Ionized Calcium Lorraine Magnesium Alkaline Phosphatase Lactate Dehydrogenase Beta-Hydroxybutyrate 2.56 H Urine Protein Urine Glucose (UA) Urine Ketones 12/02/22 12/02/22 12/02/22 09:09 09:09 09:09 WBC 13.3 H RBC Hgb 12.2 L Hct 35.1 L POC Hct MCV 73.4 L MCH 25.5 L RDW Neut % (Auto) 91.3 H Lymph % (Auto) 7.6 L [place] % (Auto) 0.6 L Lymph # (Auto) 1.01 L [place] # (Auto) 0.08 L Absolute Neutrophils 12.11 H POC VBG pH POC VBG pCO2 at Temp POC VBG HCO3 POC VBG Total CO2 POC Venous O2 Sat POC VBG Base Excess POC Sodium Sodium Potassium POC Chloride Chloride Carbon Dioxide POC Total CO2 Anion Gap POC BUN BUN Creatinine POC Creatinine Glucose POC Glucose Osmolality Uric Acid Calcium POC WB Ioniz Calcium Ionized Calcium Lorraine Magnesium 5.1 H* Alkaline Phosphatase 193 H Lactate Dehydrogenase Beta-Hydroxybutyrate Urine Protein Urine Glucose (UA) Urine Ketones Meds: Medications Albuterol/Ipratropium (Ipratropium/Albuterol 3 Ml Ampul.Neb) 3 ml NEB Q4HP PRN PRN Reason: Shortness Of Breath Amlodipine Besylate (Amlodipine 10 Mg Tablet) 10 mg PO QDAY [facility] Carvedilol (Carvedilol 6.25 Mg Tablet) 6.25 mg PO BIDCC [facility] Last Admin: 12/02/22 16:29 Dose: 6.25 mg Clonidine HCl (Clonidine Tts 3 1 Patch Patch) 1 patch TD Fr@1000 [facility] Diagnostic Test (Pha) (Accu-Chek 1 Each Strip) 1 each FS Q4 [facility] Last Admin: 12/03/22 04:00 Dose: 1 each Diltiazem HCl (Diltiazem 30 Mg Tablet) 60 mg PO Q8H [facility] Last Admin: 12/03/22 06:48 Dose: 60 mg Diphenhydramine HCl (Diphenhydramine 25 Mg Capsule) 25 mg PO QHS PRN PRN Reason: insomnia Last Admin: 12/02/22 22:37 Dose: 25 mg Docusate Sodium (Docusate Sodium 100 Mg Capsule) 100 mg PO BID [facility] Last Admin: 12/02/22 21:14 Dose: Not Given Famotidine (Famotidine 20 Mg Tablet) 20 mg PO BID [facility] Last Admin: 12/02/22 21:15 Dose: 20 mg Fluoxetine HCl (Fluoxetine Hcl 20 Mg Capsule) 20 mg PO QDAY [facility] Heparin Sodium (Porcine) (Heparin 5,000 Unit/Ml Vial) 5,000 unit SQ Q12 [facility] Last Admin: 12/02/22 21:14 Dose: 5,000 unit Heparin Sodium (Porcine) (Heparin Flush 10 Units/Ml 5 Ml Syringe) 5 ml IV Q12 [facility] Last Admin: 12/02/22 21:14 Dose: 5 ml Hydralazine HCl (Hydralazine 20 Mg/Ml Vial) 0 mg IV Q2HP PRN PRN Reason: Hypertension Last Admin: 12/02/22 18:07 Dose: 20 mg Insulin Human Regular 50 unit/ (Sodium Chloride) 100 mls @ 14 mls/hr IV DUR [facility]; Protocol Potassium Chloride 40 meq/ (Dextrose) 520 mls @ 130 mls/hr IV UD PRN PRN Reason: Potassium Level < 3 Last Infusion: 12/03/22 00:19 Dose: Infused Magnesium Sulfate (Magnesium Sulfate) 2 gm in 50 mls @ 25 mls/hr IV UD PRN PRN Reason: Magnesium Level </= 1.6 Dextrose/Sodium Chloride (Dextrose 5%-Ns Iv Solution) 1,000 mls @ 84 mls/hr IV .[id number] [facility] Last Admin: 12/03/22 06:28 Dose: Not Given Labetalol HCl (Labetalol 5 Mg/Ml Ml) 0 mg IV Q2HP PRN PRN Reason: Hypertension Lorazepam (Lorazepam 1 Mg Tablet) 1 - 2 mg PO DAILYP PRN PRN Reason: ANXIETY/SEDATION Last Admin: 12/02/22 22:24 Dose: 1 mg Lorazepam (Lorazepam 1 Mg Tablet) 1 - 2 mg PO QDAY [facility]; Protocol Mirtazapine (Mirtazapine 15 Mg Tablet) 15 mg PO HS [facility] Last Admin: 12/02/22 21:15 Dose: 15 mg Nifedipine (Nifedipine 30 Mg Tab.Xl.24h) 30 mg PO QDAY [facility] Ondansetron HCl (Ondansetron 4 Mg/2 Ml Vial) 4 mg IV Q4HP PRN PRN Reason: Nausea And Vomiting Polyethylene Glycol (Polyethylene Glycol 3350 17 Gm Packet) 17 gm PO DAILYP PRN PRN Reason: Constipation Potassium Chloride (Potassium Chloride 20 Meq Tablet) 40 meq PO UD PRN PRN Reason: Potassium Level of 3-3.5 Potassium Chloride (Potassium Chloride 20 Meq Tablet) 40 meq PO UD PRN PRN Reason: Potassium Level < 3 Last Admin: 12/02/22 16:15 Dose: 40 meq Promethazine HCl (Promethazine 25 Mg Supp.Rect) 25 mg AK Q6HP PRN PRN Reason: Nausea And Vomiting Ropinirole HCl (Ropinirole 0.25 Mg Tablet) 0.5 mg PO HSP PRN PRN Reason: restless leg Last Admin: 12/02/22 22:37 Dose: 0.5 mg Scopolamine (Scopolamine 1 Patch Patch) 1 patch TOPICAL Q72H [facility] Last Admin: 12/02/22 14:37 Dose: 1 patch Senna (Sennosides 1 Tablet) 2 tab PO DAILYP PRN PRN Reason: Constipation Sodium Chloride (0.9 % Sodium Chloride 10 Ml Syringe) 10 ml IV Q12 [facility] Last Admin: 12/02/22 21:15 Dose: 10 ml Sucralfate (Sucralfate 1 Gm Tablet) 1 gm PO BID [facility] Venlafaxine HCl (Venlafaxine 75 Mg Cap.Xl.24h) 225 mg PO QAM [facility] A/P Narrative A/P Narrative: A: *DKA-HHS (h/o DMI with h/o Gastroparesis/Neuropathy): usually triggered by noncompliance and poor self care *N/V: 2/2 above with gastroparesis and h/o cyclic vomiting and possibly marijuana hyperemesis *Hyponatremia: corrected is 125 on admit *Generalized weakness/Falling upon standing-lightheadedness *Volume Depletion: *Cannabis use: possible Cannabis hyperemesis syndrome *CKD IV: Follows with Dr. Mills *Metabolic alkalosis: *Volume depletion: *Electrolyte d/o (hypochloremia/Hypermag/Hypokalemia): *Anemia, chronic: *HTN: *Anxiety/depression/binge eating disorder: on Fluoxetine *Long QT Syndrome: noted on EKG's since 2019. Pt is on SSRI *GERD: *recent Left distal Fib Fx: in spolint *long-term prognosis guarded if he doesn't become more vigilant in caring for his disease P: -started back on insulin pump -tolerated PO intake, d/c IVF's -Monitor electrolytes and replace -monitor sodium -f/u bhb, -clear liquids and advance diet as able to gastroparesis diet (low fat, soluble fiber) -Antiemetics that won't prolong QT (Scopolamine,Benzodiazepines) -cont home clonidine/BB/diltiazem, clarify remainder of bp meds -pt/ot -ppx: Heparin/H2 Time Spent With Patient Time: Total time spent is greater than 50% in coordination of care (as documented) at patient's floor/unit and/or counseling patient: Subsequent: Total time with patient: 35 - 49 minutes
[2022-12-03] MEDS: SUCRALFATE 1 GM TABLET PO SCH ×2 (08:28→21:11)
[2022-12-03] MEDS: FLUoxetine HCL 20 MG CAPSULE PO SCH (08:28)
[2022-12-03] MEDS: FAMOTIDINE 20 MG TABLET PO SCH ×2 (08:28→21:11)
[2022-12-03] MEDS: CARVEDILOL 6.25 MG TABLET PO SCH ×2 (08:28→17:52)
[2022-12-03] MEDS: VENLAFAXINE 75 MG CAP.XL.24H PO SCH (08:29)
[2022-12-03] MEDS: LORazepam 1 MG TABLET PO SCH (08:29)
[2022-12-03] MEDS: HEPARIN 5,000 UNIT/ML VIAL SQ SCH ×2 (08:29→21:11)
[2022-12-03] MEDS: DOCUSATE SODIUM 100 MG CAPSULE PO SCH ×2 (08:37→21:11)
[2022-12-03] MEDS: 0.9 % SODIUM CHLORIDE 10 ML SYRINGE IV SCH ×2 (08:37→21:13)
[2022-12-03] MEDS ORDERED: NIFEdipine 30 MG TAB.XL.24H PO SCH (09:00)
[2022-12-03] MEDS ORDERED: amLODIPine 10 MG TABLET PO SCH (09:00)
[2022-12-03] MEDS ORDERED: cloNIDine TTS 3 1 PATCH PATCH TD SCH (10:00)
--- NOTE | 2022-12-03 12:28 | Discharge Summary ---
Discharge Provider Provider IMPORTANT FOLLOW-UP INFORMATION FOR PCP: Patient information: Note initiated : 12/03/22 at 12:26 pm Service Date, if different from initiated Date: [] Patient: Mauri Levine a 36 y/o M admitted on 12/02/22 for Vomiting, elevated BS. Chief Complaint: [] Date of admission: 12/02/22 12:06 Primary care physician: Flo Peña MD Consults: 12/02/22 Consult to Physician [CONS] Stat Comment: Consulting Provider: Deangelo Basilio Reason For Exam: Physician to Consult COURSE Hospital Course Hospital course: History of present illness: Mr. Levine is a 36 year old M Presents to the ED with similar presentation in from the past. Patient says he developed some nausea vomiting and had a poor appetite and did not eat much for for 5 days and then his blood sugar shot up. He is also been falling lately because when he gets up he gets lightheaded and will fall. In the ED he had a blood gas [id number] which showed significant alkalosis which he has had in the past. Elevated bicarb. Lactate 2.0. Chemistry shows a sodium of 119 with a corrected of 125. Creatinine elevated 4.7. BUN elevated at 72. Anion gap noted at 22. Severely low chloride at 63.Magnesium elevated at 5.1. Beta hydroxybutyric acid and UA pending. Blood glucose of 492. Patient given IV fluid boluses in the ED and started on insulin drip. Patient denies vomiting today. But continued nausea. Poor appetite lightheaded. No chest pain or shortness of breath.No diarrhea. pt last admitted earlier this month. 12/03 Patient started back on insulin pump. Patient tolerating oral diet. Will monitor blood glucose closely today. Patient also likely needs custodial placement. Hyponatremia improving. Renal function stable. Magnesium still elevated but improving. A: *DKA-HHS (h/o DMI with h/o Gastroparesis/Neuropathy): usually triggered by noncompliance and poor self care *N/V: 2/2 above with gastroparesis and h/o cyclic vomiting and possibly marijuana hyperemesis *Hyponatremia: corrected is 125 on admit *Generalized weakness/Falling upon standing-lightheadedness *Volume Depletion: *Cannabis use: possible Cannabis hyperemesis syndrome *CKD IV: Follows with Dr. Mills *Metabolic alkalosis: *Volume depletion: *Electrolyte d/o (hypochloremia/Hypermag/Hypokalemia): *Anemia, chronic: *HTN: *Anxiety/depression/binge eating disorder: on Fluoxetine *Long QT Syndrome: noted on EKG's since 2019. Pt is on SSRI *GERD: *recent Left distal Fib Fx: in spolint *long-term prognosis guarded if he doesn't become more vigilant in caring for his disease Discharge diagnosis: DKA HHS nausea vomiting hyponatremia Secondary discharge diagnosis: Generalized weakness volume depletion falling chronic kidney disease metabolic alkalosis volume depletion electrolyte imbalance chronic anemia prevention anxiety depression GERD Time Spent with Patient Time attestation: Total time spent providing and/or coordinating discharge services: Time spent: Greater than 30 minutes EXAM Constitutional Vitals: Temp Pulse Resp BP Pulse Ox O2 Del Method 97.7 F 75 24 H 127/76 100 Room Air 12/03/22 08:01 12/03/22 10:09 12/03/22 10:09 12/03/22 10:09 12/03/22 10:09 12/03/22 02:00 Discharge Data Data Completed and Pending Labs on day of discharge: Labs from last 24 hours 12/03/22 12/03/22 12/03/22 05:37 05:36 05:36 WBC 10.4 RBC 4.47 L Hgb 11.4 L Hct 34.3 L MCV 76.7 L MCH 25.5 L MCHC 33.2 RDW 15.2 H Plt Count 332 MPV 10.7 Immature Gran % (Auto) 0.5 Neut % (Auto) 59.9 Lymph % (Auto) 31.7 Keith % (Auto) 6.6 Eos % (Auto) 0.8 Baso % (Auto) 0.5 Lymph # (Auto) 3.30 Keith # (Auto) 0.69 Eos # (Auto) 0.08 Baso # (Auto) 0.05 Immature Gran # 0.05 Absolute Neutrophils 6.24 Sodium 132 L Potassium 3.9 Chloride 88 L Carbon Dioxide 30 Anion Gap 14.0 BUN 55 H Creatinine 4.2 H GFR Calculation 17 Glucose 111 H Osmolality Uric Acid 8.2 H Calcium 8.7 Ionized Calcium Lorraine Phosphorus 3.5 Magnesium 4.2 H* Total Bilirubin 0.2 Direct Bilirubin < 0.2 GGT 15 AST 15 ALT 13 Alkaline Phosphatase 171 H Lactate Dehydrogenase 231 H Total Protein 6.7 Albumin 3.9 Globulin 2.8 Albumin/Globulin Ratio 1.4 Triglycerides 123 Beta-Hydroxybutyrate 0.20 Urine Color Urine Appearance Urine pH Ur Specific [place] Urine Protein Urine Glucose (UA) Urine Ketones Urine Occult Blood Urine Nitrate Urine Bilirubin Urine Urobilinogen Ur Leukocyte Esterase Urine RBC Urine WBC Ur Squamous Epith Cells Urine Bacteria Ur Culture Indicated? 12/02/22 12/02/22 12/02/22 15:01 13:00 09:09 WBC RBC Hgb Hct MCV MCH MCHC RDW Plt Count MPV Immature Gran % (Auto) Neut % (Auto) Lymph % (Auto) [place] % (Auto) Eos % (Auto) Baso % (Auto) Lymph # (Auto) Keith # (Auto) Eos # (Auto) Baso # (Auto) Immature Gran # Absolute Neutrophils Sodium 124 L Potassium 2.8 L* Chloride 76 L Carbon Dioxide 32 H Anion Gap 16.0 BUN 64 H Creatinine 4.2 H GFR Calculation 17 Glucose 163 H Osmolality 303 H Uric Acid Calcium Ionized Calcium Lorraine 0.76 L Phosphorus Magnesium Total Bilirubin Direct Bilirubin GGT AST ALT Alkaline Phosphatase Lactate Dehydrogenase Total Protein Albumin Globulin Albumin/Globulin Ratio Triglycerides Beta-Hydroxybutyrate Urine Color Straw Urine Appearance Clear Urine pH 9.0 Ur Specific [place] 1.006 Urine Protein 100 A Urine Glucose (UA) 150 A Urine Ketones 5 A Urine Occult Blood Negative Urine Nitrate Negative Urine Bilirubin Negative Urine Urobilinogen Negative Ur Leukocyte Esterase Negative Urine RBC < 1 Urine WBC < 1 Ur Squamous Epith Cells 0 Urine Bacteria None Ur Culture Indicated? No 12/02/22 09:09 WBC RBC Hgb Hct MCV MCH MCHC RDW Plt Count MPV Immature Gran % (Auto) Neut % (Auto) Lymph % (Auto) [place] % (Auto) Eos % (Auto) Baso % (Auto) Lymph # (Auto) Keith # (Auto) Eos # (Auto) Baso # (Auto) Immature Gran # Absolute Neutrophils Sodium Potassium Chloride Carbon Dioxide Anion Gap BUN Creatinine GFR Calculation Glucose Osmolality Uric Acid Calcium Ionized Calcium Lorraine Phosphorus Magnesium Total Bilirubin Direct Bilirubin GGT AST ALT Alkaline Phosphatase Lactate Dehydrogenase Total Protein Albumin Globulin Albumin/Globulin Ratio Triglycerides Beta-Hydroxybutyrate 2.56 H Urine Color Urine Appearance Urine pH Ur Specific [place] Urine Protein Urine Glucose (UA) Urine Ketones Urine Occult Blood Urine Nitrate Urine Bilirubin Urine Urobilinogen Ur Leukocyte Esterase Urine RBC Urine WBC Ur Squamous Epith Cells Urine Bacteria Ur Culture Indicated? Discharge Plan Patient/Caregiver Discharge Instructions Activity: increase activity as tolerated Diet: Renal/Consistent Carbs Prescriptions: No Action (DME) insulin syringes (disposable) 1 mL syringe See Rx Instructions .Route Qty: 500 0RF Rx Instructions: use for insulin three times daily mirtazapine 15 mg tablet,disintegrating 15 mg PO HS Qty: 90 0RF ondansetron 4 mg tablet,disintegrating 4 mg PO Q8H Qty: 120 0RF fluoxetine 20 mg capsule 20 mg PO QDAY Qty: 90 1RF promethazine [Promethegan] 25 mg suppository 25 mg CO Q6H PRN (Reason: nausea and vomiting) Qty: 12 0RF famotidine 20 mg tablet 20 mg PO BID Qty: 90 1RF venlafaxine 75 mg capsule,extended release 24hr 225 mg PO QAM Qty: 90 5RF carvedilol 6.25 mg tablet 6.25 mg PO BID Qty: 60 5RF clonidine 0.3 mg/24 hr patch weekly 1 patch topical Fr@1000 Qty: 4 2RF sucralfate [Carafate] 1 gram tablet 1 g PO BID Qty: 70 0RF diltiazem HCl 60 mg tablet 60 mg PO Q8H 90 Days Qty: 270 0RF Baqsimi 3 mg/actuation spray,non-aerosol 3 mg intranasal ONCE PRN (Reason: hypoglycemia) Qty: 1 3RF Rx Instructions: 1 spray intranasal as needed (DME) blood-glucose meter Misc See Rx Instructions .Route Qty: 1 3RF Rx Instructions: use to test blood sugar 5 times daily (DME) Blood Glucose Test Strip See Rx Instructions .ROUTE .MEDSUPPLY Qty: 500 3RF Rx Instructions: use to test blood sugar 5 times daily (DME) lancets Misc See Rx Instructions .Route Qty: 500 3RF Rx Instructions: use to test blood sugar 5 times daily ropinirole 0.25 mg Tablet 0.5 mg PO HSP PRN (Reason: restless leg) Qty: 10 2RF diphenhydramine HCl [EZ Nite Sleep] 25 mg capsule 25 mg PO QHS PRN (Reason: insomnia) Qty: 30 1RF insulin aspart U-100 [Novolog U-100 Insulin aspart] 100 unit/mL solution See Rx Instructions subcut TID Qty: 60 1RF Rx Instructions: subcut three times daily with meals; Moderate Dose Scale Blood Sugar (mg/dL), Units Insulin 70-130, 0 units 131-180, 4 units 181-240, 8 units 241-300, 10 units 301-350, 12 units 351-400, 16 units >400, 20 units and call nifedipine 30 mg tablet extended release 24hr 30 mg PO QDAY amlodipine 10 mg tablet 10 mg PO QDAY lorazepam 1 mg tablet 1 - 2 mg PO QDAY insulin glargine [Lantus U-100 Insulin] 100 unit/mL solution 10 unit subcut HS PRN (Reason: if insulin pump fail) Rx Instructions: if insulin pump fails Follow Up Plan Follow up with: Flo Peña MD [Primary Care Provider] - Patient Disposition: Xfer SNF Prognosis: Undetermined Rehab Potential: Fair I certify that the patient requires SNF services: Yes Overall status at discharge: patient is progressing back to baseline
[2022-12-03] MEDS: DEXTROSE 50% 50 ML SYRINGE IV ONE ×2 (20:39→20:41)
[2022-12-03] MEDS ORDERED: DEXTROSE 50% 50 ML VIAL IV ONE (20:40)
[2022-12-03] MEDS: MIRTAZAPINE 15 MG TABLET PO SCH (21:11)
[2022-12-03] MEDS ORDERED: DEXTROSE 31 GM ORAL.SUSP PO PRN (21:18)
[2022-12-03] MEDS ORDERED: DEXTROSE 50% 50 ML VIAL IV PRN (21:18)
[2022-12-03] MEDS ORDERED: INSULIN LISPRO 1 UNIT/0.01 ML UNIT SQ PRN (23:33)
[2022-12-03] MEDS ORDERED: INSULIN LISPRO 1 UNIT/0.01 ML UNIT SQ ONE (23:50)
[2022-12-04] MEDS: INSULIN LISPRO 1 UNIT/0.01 ML UNIT SQ SCH ×4 (00:15→06:25)
[2022-12-04] MEDS ORDERED: INSULIN LISPRO 1 UNIT/0.01 ML UNIT SQ ONE (02:28)
[2022-12-04] MEDS: CARVEDILOL 6.25 MG TABLET PO SCH ×2 (07:21→18:06)
[2022-12-04] MEDS: DILTIAZEM 30 MG TABLET PO SCH ×3 (07:21→16:24)
[2022-12-04] MEDS ORDERED: INSULIN LISPRO 1 UNIT/0.01 ML UNIT SQ SCH ×2 (07:30)
--- NOTE | 2022-12-04 08:01 | Internal Med Progress Note ---
SUBJECTIVE Subjective Patient information: Note initiated : 12/04/22 at 8:00 am Service Date, if different from initiated Date: [] Patient: Mauri Levine a 36 y/o M admitted on 12/02/22 for Vomiting, elevated BS. Chief Complaint: [] Interval history: History of present illness: Mr. Levine is a 36 year old M Presents to the ED with similar presentation in from the past. Patient says he developed some nausea vomiting and had a poor appetite and did not eat much for for 5 days and then his blood sugar shot up. He is also been falling lately because when he gets up he gets lightheaded and will fall. In the ED he had a blood gas [id number] which showed significant alkalosis which he has had in the past. Elevated bicarb. Lactate 2.0. Chemistry shows a sodium of 119 with a corrected of 125. Creatinine elevated 4.7. BUN elevated at 72. Anion gap noted at 22. Severely low chloride at 63.Magnesium elevated at 5.1. Beta hydroxybutyric acid and UA pending. Blood glucose of 492. Patient given IV fluid boluses in the ED and started on insulin drip. Patient denies vomiting today. But continued nausea. Poor appetite lighthead ed. No chest pain or shortness of breath.No diarrhea. pt last admitted earlier this month. 12/03 Patient started back on insulin pump. Patient tolerating oral diet. Will monitor blood glucose closely today. Patient also likely needs [facility] placement. Hyponatremia improving. Renal function stable. Magnesium still elevated but improving. 12/04 Patient feeling well this morning. Some outpatient double dosed on his evening bolus insulin and became hypoglycemic symptomatic. Patient is taken off insulin pump for the night. Will place insulin pump back on this morning. Review of Systems: denies headache/fever/chills/chest or abdominal pain/cough/dyspnea/diarrhea. Otherwise see above. PHYSICAL EXAM General: Alert, Awake, No acute Distress Eyes/N/T: EOMI, no scleral icterus, Head/Neck: neck supple, full ROM, CV: RRR, 3/6SM, Pulm: Clear b/l, no wheezing/rhonchi/rales, no respiratory distress Abd: soft, nontender, +BS x4 Ext: no clubbing/cyanosis/edema, nontender Neuro: Alert, no focal deficits, moves all extremities, , sensations intact b/l upper/lower Psychiatric: Skin: warm/dry, normal color Constitutional Vitals: Vital Signs Temp Pulse Resp BP Pulse Ox O2 Del Method O2 Flow Rate 98.1 F 77 16 123/67 100 Nasal Cannula 2 12/04/22 07:15 12/04/22 07:15 12/04/22 07:15 12/04/22 07:15 12/04/22 04:00 12/04/22 04:00 12/04/22 04:00 Period Temp Pulse Resp BP Sys/Menard Pulse Ox O2 Del Method O2 Flow Rate Last 24 Hr 96.9 F-98.9 F 59-88 13-24 95-150/63-81 96-100 Nasal Cannula- Room Air 2 Intake and Output 12/03/22 12/04/22 12/04/22 19:59 03:59 11:59 Intake Total 360 414 50 Output Total 560 Balance -200 414 50 Weight 71.894 kg 73.346 kg Intake & Output: Intake & Output 12/03/22 12/04/22 12/04/22 19:59 03:59 11:59 Intake Total 360 414 50 Output Total 560 Balance -200 414 50 Weight 71.894 kg 73.346 kg Intake: Oral 360 414 50 Output: Void Amount 560 Other: Meal Lunch Percent of Meal Consumed 100% Feeding Ability Independent Urine Appearance Clear Urine Color Pale # Unmeasured Emesis 1 OBJ DATA Labs 12/03/22 05:36 12/03/22 05:36 Labs: Abnormal Lab Results 12/03/22 12/03/22 12/02/22 05:36 05:36 15:01 WBC RBC 4.47 L Hgb 11.4 L Hct 34.3 L POC Hct MCV 76.7 L MCH 25.5 L RDW 15.2 H Neut % (Auto) Lymph % (Auto) Lewis % (Auto) Lymph # (Auto) Lewis # (Auto) Absolute Neutrophils POC VBG pH POC VBG pCO2 at Temp POC VBG HCO3 POC VBG Total CO2 POC Venous O2 Sat POC VBG Base Excess POC Sodium Sodium 132 L 124 L Potassium 2.8 L* POC Chloride Chloride 88 L 76 L Carbon Dioxide 32 H POC Total CO2 Anion Gap POC BUN BUN 55 H 64 H Creatinine 4.2 H 4.2 H POC Creatinine Glucose 111 H 163 H POC Glucose Osmolality Uric Acid 8.2 H Calcium POC WB Ioniz Calcium Ionized Calcium Lorraine 0.76 L Magnesium 4.2 H* Alkaline Phosphatase 171 H Lactate Dehydrogenase 231 H Beta-Hydroxybutyrate Urine Protein Urine Glucose (UA) Urine Ketones 12/02/22 12/02/22 12/02/22 13:00 09:16 09:16 WBC RBC Hgb Hct POC Hct 40.0 L MCV MCH RDW Neut % (Auto) Lymph % (Auto) Lewis % (Auto) Lymph # (Auto) Lewis # (Auto) Absolute Neutrophils POC VBG pH POC VBG pCO2 at Temp POC VBG HCO3 POC VBG Total CO2 POC Venous O2 Sat POC VBG Base Excess POC Sodium 115 L* Sodium 119 L* Potassium POC Chloride 65 L Chloride 63 L Carbon Dioxide 34 H POC Total CO2 41.0 H Anion Gap 22.0 H POC BUN 61 H BUN 72 H Creatinine 4.7 H POC Creatinine 6.1 H* Glucose 492 H* POC Glucose 488 H* Osmolality Uric Acid Calcium 8.5 L POC WB Ioniz Calcium 0.79 L Ionized Calcium Lorraine Magnesium Alkaline Phosphatase Lactate Dehydrogenase Beta-Hydroxybutyrate Urine Protein 100 A Urine Glucose (UA) 150 A Urine Ketones 5 A 12/02/22 12/02/22 12/02/22 09:13 09:09 09:09 WBC RBC Hgb Hct POC Hct MCV MCH RDW Neut % (Auto) Lymph % (Auto) Lewis % (Auto) Lymph # (Auto) Lewis # (Auto) Absolute Neutrophils POC VBG pH 7.67 H* POC VBG pCO2 at Temp 40.3 L POC VBG HCO3 46.7 H* POC VBG Total CO2 48.0 H* POC Venous O2 Sat 83.0 H POC VBG Base Excess 26.0 H* POC Sodium Sodium Potassium POC Chloride Chloride Carbon Dioxide POC Total CO2 Anion Gap POC BUN BUN Creatinine POC Creatinine Glucose POC Glucose Osmolality 303 H Uric Acid Calcium POC WB Ioniz Calcium Ionized Calcium Lorraine Magnesium Alkaline Phosphatase Lactate Dehydrogenase Beta-Hydroxybutyrate 2.56 H Urine Protein Urine Glucose (UA) Urine Ketones 12/02/22 12/02/22 12/02/22 09:09 09:09 09:09 WBC 13.3 H RBC Hgb 12.2 L Hct 35.1 L POC Hct MCV 73.4 L MCH 25.5 L RDW Neut % (Auto) 91.3 H Lymph % (Auto) 7.6 L Lewis % (Auto) 0.6 L Lymph # (Auto) 1.01 L Lewis # (Auto) 0.08 L Absolute Neutrophils 12.11 H POC VBG pH POC VBG pCO2 at Temp POC VBG HCO3 POC VBG Total CO2 POC Venous O2 Sat POC VBG Base Excess POC Sodium Sodium Potassium POC Chloride Chloride Carbon Dioxide POC Total CO2 Anion Gap POC BUN BUN Creatinine POC Creatinine Glucose POC Glucose Osmolality Uric Acid Calcium POC WB Ioniz Calcium Ionized Calcium Lorraine Magnesium 5.1 H* Alkaline Phosphatase 193 H Lactate Dehydrogenase Beta-Hydroxybutyrate Urine Protein Urine Glucose (UA) Urine Ketones Meds: Medications Albuterol/Ipratropium (Ipratropium/Albuterol 3 Ml Ampul.Neb) 3 ml NEB Q4HP PRN PRN Reason: Shortness Of Breath Carvedilol (Carvedilol 6.25 Mg Tablet) 6.25 mg PO BIDCC [facility] Last Admin: 12/04/22 07:21 Dose: 6.25 mg Clonidine HCl (Clonidine Tts 3 1 Patch Patch) 1 patch TD Fr@1000 [facility] Last Admin: 12/03/22 11:34 Dose: 1 patch Dextrose (Dextrose 50% 50 Ml Vial) 0 ml IV UD PRN PRN Reason: Per Sliding Scale Diagnostic Test (Pha) (Accu-Chek 1 Each Strip) 1 each FS Q1 [facility] Last Admin: 12/04/22 07:15 Dose: 1 each Diltiazem HCl (Diltiazem 30 Mg Tablet) 60 mg PO Q8H [facility] Last Admin: 12/04/22 07:21 Dose: 60 mg Diphenhydramine HCl (Diphenhydramine 25 Mg Capsule) 25 mg PO QHS PRN PRN Reason: insomnia Last Admin: 12/02/22 22:37 Dose: 25 mg Docusate Sodium (Docusate Sodium 100 Mg Capsule) 100 mg PO BID [facility] Last Admin: 12/03/22 21:11 Dose: 100 mg Famotidine (Famotidine 20 Mg Tablet) 20 mg PO HS [facility] Fluoxetine HCl (Fluoxetine Hcl 20 Mg Capsule) 20 mg PO QDAY [facility] Last Admin: 12/03/22 08:28 Dose: 20 mg Glucose (Dextrose 31 Gm Oral.Susp) 15 gm PO PRN PRN PRN Reason: Hypoglycemia Last Admin: 12/04/22 05:53 Dose: 15 gm Heparin Sodium (Porcine) (Heparin 5,000 Unit/Ml Vial) 5,000 unit SQ Q12 [facility] Last Admin: 12/03/22 21:11 Dose: 5,000 unit Heparin Sodium (Porcine) (Heparin Flush 10 Units/Ml 5 Ml Syringe) 5 ml IV Q12 [facility] Last Admin: 12/03/22 21:12 Dose: 5 ml Hydralazine HCl (Hydralazine 20 Mg/Ml Vial) 0 mg IV Q2HP PRN PRN Reason: Hypertension Last Admin: 12/02/22 18:07 Dose: 20 mg Potassium Chloride 40 meq/ (Dextrose) 520 mls @ 130 mls/hr IV UD PRN PRN Reason: Potassium Level < 3 Last Infusion: 12/03/22 00:19 Dose: Infused Magnesium Sulfate (Magnesium Sulfate) 2 gm in 50 mls @ 25 mls/hr IV UD PRN PRN Reason: Magnesium Level </= 1.6 Insulin Human Lispro (Insulin Lispro 1 Unit/0.01 Ml Unit) 0 unit SQ Q2HP PRN; Protocol PRN Reason: Blood Sugar - High Labetalol HCl (Labetalol 5 Mg/Ml Ml) 0 mg IV Q2HP PRN PRN Reason: Hypertension Lorazepam (Lorazepam 1 Mg Tablet) 1 - 2 mg PO DAILYP PRN PRN Reason: ANXIETY/SEDATION Last Admin: 12/02/22 22:24 Dose: 1 mg Lorazepam (Lorazepam 1 Mg Tablet) 1 - 2 mg PO QDAY [facility]; Protocol Last Admin: 12/03/22 08:29 Dose: 1 mg Mirtazapine (Mirtazapine 15 Mg Tablet) 15 mg PO [facility] Last Admin: 12/03/22 21:11 Dose: 15 mg Ondansetron HCl (Ondansetron 4 Mg/2 Ml Vial) 4 mg IV Q4HP PRN PRN Reason: Nausea And Vomiting Last Admin: 12/04/22 05:07 Dose: 4 mg Polyethylene Glycol (Polyethylene Glycol 3350 17 Gm Packet) 17 gm PO DAILYP PRN PRN Reason: Constipation Potassium Chloride (Potassium Chloride 20 Meq Tablet) 40 meq PO UD PRN PRN Reason: Potassium Level of 3-3.5 Potassium Chloride (Potassium Chloride 20 Meq Tablet) 40 meq PO UD PRN PRN Reason: Potassium Level < 3 Last Admin: 12/02/22 16:15 Dose: 40 meq Promethazine HCl (Promethazine 25 Mg Supp.Rect) 25 mg MD Q6HP PRN PRN Reason: Nausea And Vomiting Ropinirole HCl (Ropinirole 0.25 Mg Tablet) 0.5 mg PO HSP PRN PRN Reason: restless leg Last Admin: 12/02/22 22:37 Dose: 0.5 mg Scopolamine (Scopolamine 1 Patch Patch) 1 patch TOPICAL Q72H [facility] Last Admin: 12/02/22 14:37 Dose: 1 patch Senna (Sennosides 1 Tablet) 2 tab PO DAILYP PRN PRN Reason: Constipation Sodium Chloride (0.9 % Sodium Chloride 10 Ml Syringe) 10 ml IV Q12 [facility] Last Admin: 12/03/22 21:13 Dose: 10 ml Sucralfate (Sucralfate 1 Gm Tablet) 1 gm PO BID [facility] Last Admin: 12/03/22 21:11 Dose: 1 gm Venlafaxine HCl (Venlafaxine 75 Mg Cap.Xl.24h) 225 mg PO QAM [facility] Last Admin: 12/03/22 08:29 Dose: 225 mg A/P Narrative A/P Narrative: A: *DKA-HHS (h/o DMI with h/o Gastroparesis/Neuropathy): usually triggered by noncompliance and poor self care -improved *N/V: 2/2 above with gastroparesis and h/o cyclic vomiting and possibly marijuana hyperemesis -improved *Hyponatremia: corrected is 125 on admit *Generalized weakness/Falling upon standing-lightheadedness *Volume Depletion: *Cannabis use: possible Cannabis hyperemesis syndrome *CKD IV: Follows with Dr. Mills *Metabolic alkalosis: *Volume depletion: *Electrolyte d/o (hypochloremia/Hypermag/Hypokalemia): *Anemia, chronic: *HTN: *Anxiety/depression/binge eating disorder: on Fluoxetine *Long QT Syndrome: noted on EKG's since 2019. Pt is on SSRI *GERD: *recent Left distal Fib Fx: in spolint *long-term prognosis guarded if he doesn't become more vigilant in caring for his disease P: -start back on insulin pump -tolerating PO intake -Monitor electrolytes and replace -monitor sodium -advance diet as able to gastroparesis diet (low fat, soluble fiber) -Antiemetics that won't prolong QT (Scopolamine,Benzodiazepines) -cont home clonidine/BB/diltiazem -pt/ot -CM for placement -ppx: Heparin/H2 Time Spent With Patient Time: Total time spent is greater than 50% in coordination of care (as documented) at patient's floor/unit and/or counseling patient: Subsequent: Total time with patient: 35 - 49 minutes
[2022-12-04] MEDS: VENLAFAXINE 75 MG CAP.XL.24H PO SCH (08:33)
[2022-12-04] MEDS: HEPARIN 5,000 UNIT/ML VIAL SQ SCH ×2 (08:34→20:34)
[2022-12-04] MEDS: FLUoxetine HCL 20 MG CAPSULE PO SCH (08:34)
[2022-12-04] MEDS: LORazepam 1 MG TABLET PO SCH (08:34)
[2022-12-04] MEDS: INSULIN LISPRO 1 UNIT/0.01 ML UNIT SQ PRN ×2 (08:35→09:12)
[2022-12-04] MEDS: DOCUSATE SODIUM 100 MG CAPSULE PO SCH ×2 (10:58→20:33)
[2022-12-04] MEDS: 0.9 % SODIUM CHLORIDE 10 ML SYRINGE IV SCH ×2 (11:26→20:40)
[2022-12-04] MEDS: SUCRALFATE 1 GM TABLET PO SCH ×2 (11:36→20:33)
[2022-12-04] MEDS: rOPINIRole 0.25 MG TABLET PO PRN (19:05)
[2022-12-04] MEDS: LORazepam 1 MG TABLET PO PRN (20:32)
[2022-12-04] MEDS: MIRTAZAPINE 15 MG TABLET PO SCH (20:33)
[2022-12-04] MEDS: FAMOTIDINE 20 MG TABLET PO SCH (20:33)
[2022-12-05] MEDS: DILTIAZEM 30 MG TABLET PO SCH (02:18)
--- NOTE | 2022-12-05 07:56 | Internal Med Progress Note ---
SUBJECTIVE Subjective Patient information: Note initiated : 12/05/22 at 7:53 am Service Date, if different from initiated Date: [] Patient: Mauri Levine a 36 y/o M admitted on 12/02/22 for Vomiting, elevated BS. Chief Complaint: [] Interval history: History of present illness: Mr. Levine is a 36 year old M Presents to the ED with similar presentation in from the past. Patient says he developed some nausea vomiting and had a poor appetite and did not eat much for for 5 days and then his blood sugar shot up. He is also been falling lately because when he gets up he gets lightheaded and will fall. In the ED he had a blood gas [id number] which showed significant alkalosis which he has had in the past. Elevated bicarb. Lactate 2.0. Chemistry shows a sodium of 119 with a corrected of 125. Creatinine elevated 4.7. BUN elevated at 72. Anion gap noted at 22. Severely low chloride at 63.Magnesium elevated at 5.1. Beta hydroxybutyric acid and UA pending. Blood glucose of 492. Patient given IV fluid boluses in the ED and started on insulin drip. Patient denies vomiting today. But continued nausea. Poor appetite lighthead ed. No chest pain or shortness of breath.No diarrhea. pt last admitted earlier this month. 12/03 Patient started back on insulin pump. Patient tolerating oral diet. Will monitor blood glucose closely today. [facility] also [facility] Hyponatremia improving. Renal function stable. Magnesium still elevated but improving. 12/04 Patient feeling well this morning. Some outpatient double dosed on his evening bolus insulin and became hypoglycemic symptomatic. Patient is taken off insulin pump for the night. Will place insulin pump back on this morning. 12/05 Patient feeling well. Eating breakfast. Recommend physical therapy and case management for placement. Follow-up chemistry. Monitor blood glucose on insulin pump. Pending chemistry. Review of Systems: denies headache/fever/chills/chest or abdominal pain/cough/dyspnea/diarrhea. Otherwise see above. PHYSICAL EXAM General: Alert, Awake, No acute Distress Eyes/N/T: EOMI, no scleral icterus, Head/Neck: neck supple, full ROM, CV: RRR, 3/6SM, Pulm: Clear b/l, no wheezing/rhonchi/rales, no respiratory distress Abd: soft, nontender, +BS x4 Ext: no clubbing/cyanosis/edema, nontender Neuro: Alert, no focal deficits, moves all extremities, , sensations intact b/l upper/lower Psychiatric: Skin: warm/dry, normal color Constitutional Vitals: Vital Signs Temp Pulse Resp BP Pulse Ox O2 Del Method O2 Flow Rate 98.9 F 72 16 132/70 98 Room Air 2 12/05/22 07:38 12/05/22 07:38 12/05/22 07:38 12/05/22 07:38 12/05/22 07:38 12/05/22 07:38 12/04/22 04:00 Period Temp Pulse Resp BP Sys/Menard Pulse Ox O2 Del Method O2 Flow Rate Last 24 Hr 98.5 F-98.9 F 69-72 16-18 99-132/41-77 98-100 Room Air-Room Air Intake and Output 12/04/22 12/05/22 12/05/22 19:59 03:59 11:59 Intake Total 1060 948 474 Output Total 950 Balance 1060 -2 474 Weight 72.529 kg Intake & Output: Intake & Output 12/04/22 12/05/22 12/05/22 19:59 03:59 11:59 Intake Total 1060 948 474 Output Total 950 Balance 1060 -2 474 Weight 72.529 kg Intake: Oral 1060 948 474 Output: Void Amount 950 Other: Meal Dinner Percent of Meal Consumed 100% Urine Appearance Clear Urine Color Yellow Urine Odor Normal OBJ DATA Labs 12/03/22 05:36 12/03/22 05:36 Labs: Abnormal Lab Results 12/03/22 12/03/22 12/02/22 05:36 05:36 15:01 WBC RBC 4.47 L Hgb 11.4 L Hct 34.3 L POC Hct MCV 76.7 L MCH 25.5 L RDW 15.2 H Neut % (Auto) Lymph % (Auto) [place] % (Auto) Lymph # (Auto) [place] # (Auto) Absolute Neutrophils POC VBG pH POC VBG pCO2 at Temp POC VBG HCO3 POC VBG Total CO2 POC Venous O2 Sat POC VBG Base Excess POC Sodium Sodium 132 L 124 L Potassium 2.8 L* POC Chloride Chloride 88 L 76 L Carbon Dioxide 32 H POC Total CO2 Anion Gap POC BUN BUN 55 H 64 H Creatinine 4.2 H 4.2 H POC Creatinine Glucose 111 H 163 H POC Glucose Osmolality Uric Acid 8.2 H Calcium POC WB Ioniz Calcium Ionized Calcium Lorraine 0.76 L Magnesium 4.2 H* Alkaline Phosphatase 171 H Lactate Dehydrogenase 231 H Beta-Hydroxybutyrate Urine Protein Urine Glucose (UA) Urine Ketones 12/02/22 12/02/22 12/02/22 13:00 09:16 09:16 WBC RBC Hgb Hct POC Hct 40.0 L MCV MCH RDW Neut % (Auto) Lymph % (Auto) [place] % (Auto) Lymph # (Auto) [place] # (Auto) Absolute Neutrophils POC VBG pH POC VBG pCO2 at Temp POC VBG HCO3 POC VBG Total CO2 POC Venous O2 Sat POC VBG Base Excess POC Sodium 115 L* Sodium 119 L* Potassium POC Chloride 65 L Chloride 63 L Carbon Dioxide 34 H POC Total CO2 41.0 H Anion Gap 22.0 H POC BUN 61 H BUN 72 H Creatinine 4.7 H POC Creatinine 6.1 H* Glucose 492 H* POC Glucose 488 H* Osmolality Uric Acid Calcium 8.5 L POC WB Ioniz Calcium 0.79 L Ionized Calcium Lorraine Magnesium Alkaline Phosphatase Lactate Dehydrogenase Beta-Hydroxybutyrate Urine Protein 100 A Urine Glucose (UA) 150 A Urine Ketones 5 A 12/02/22 12/02/22 12/02/22 09:13 09:09 09:09 WBC RBC Hgb Hct POC Hct MCV MCH RDW Neut % (Auto) Lymph % (Auto) [place] % (Auto) Lymph # (Auto) [place] # (Auto) Absolute Neutrophils POC VBG pH 7.67 H* POC VBG pCO2 at Temp 40.3 L POC VBG HCO3 46.7 H* POC VBG Total CO2 48.0 H* POC Venous O2 Sat 83.0 H POC VBG Base Excess 26.0 H* POC Sodium Sodium Potassium POC Chloride Chloride Carbon Dioxide POC Total CO2 Anion Gap POC BUN BUN Creatinine POC Creatinine Glucose POC Glucose Osmolality 303 H Uric Acid Calcium POC WB Ioniz Calcium Ionized Calcium Lorraine Magnesium Alkaline Phosphatase Lactate Dehydrogenase Beta-Hydroxybutyrate 2.56 H Urine Protein Urine Glucose (UA) Urine Ketones 12/02/22 12/02/22 12/02/22 09:09 09:09 09:09 WBC 13.3 H RBC Hgb 12.2 L Hct 35.1 L POC Hct MCV 73.4 L MCH 25.5 L RDW Neut % (Auto) 91.3 H Lymph % (Auto) 7.6 L [place] % (Auto) 0.6 L Lymph # (Auto) 1.01 L [place] # (Auto) 0.08 L Absolute Neutrophils 12.11 H POC VBG pH POC VBG pCO2 at Temp POC VBG HCO3 POC VBG Total CO2 POC Venous O2 Sat POC VBG Base Excess POC Sodium Sodium Potassium POC Chloride Chloride Carbon Dioxide POC Total CO2 Anion Gap POC BUN BUN Creatinine POC Creatinine Glucose POC Glucose Osmolality Uric Acid Calcium POC WB Ioniz Calcium Ionized Calcium Lorraine Magnesium 5.1 H* Alkaline Phosphatase 193 H Lactate Dehydrogenase Beta-Hydroxybutyrate Urine Protein Urine Glucose (UA) Urine Ketones Meds: Medications Albuterol/Ipratropium (Ipratropium/Albuterol 3 Ml Ampul.Neb) 3 ml NEB Q4HP PRN PRN Reason: Shortness Of Breath Carvedilol (Carvedilol 6.25 Mg Tablet) 6.25 mg PO BIDCC [facility] Last Admin: 12/04/22 18:06 Dose: 6.25 mg Clonidine HCl (Clonidine Tts 3 1 Patch Patch) 1 patch TD Fr@1000 [facility] Last Admin: 12/03/22 11:34 Dose: 1 patch Dextrose (Dextrose 50% 50 Ml Vial) 0 ml IV UD PRN PRN Reason: Per Sliding Scale Diagnostic Test (Pha) (Accu-Chek 1 Each Strip) 1 each FS ACHS [facility] Last Admin: 12/04/22 23:39 Dose: 1 each Diltiazem HCl (Diltiazem 30 Mg Tablet) 30 mg PO Q8H [facility] Last Admin: 12/05/22 02:18 Dose: Not Given Diphenhydramine HCl (Diphenhydramine 25 Mg Capsule) 25 mg PO QHS PRN PRN Reason: insomnia Last Admin: 12/02/22 22:37 Dose: 25 mg Docusate Sodium (Docusate Sodium 100 Mg Capsule) 100 mg PO BID [facility] Last Admin: 12/04/22 20:33 Dose: 100 mg Famotidine (Famotidine 20 Mg Tablet) 20 mg PO HS [facility] Last Admin: 12/04/22 20:33 Dose: 20 mg Fluoxetine HCl (Fluoxetine Hcl 20 Mg Capsule) 20 mg PO QDAY [facility] Last Admin: 12/04/22 08:34 Dose: 20 mg Glucose (Dextrose 31 Gm Oral.Susp) 15 gm PO PRN PRN PRN Reason: Hypoglycemia Last Admin: 12/04/22 05:53 Dose: 15 gm Heparin Sodium (Porcine) (Heparin 5,000 Unit/Ml Vial) 5,000 unit SQ Q12 [facility] Last Admin: 12/04/22 20:34 Dose: 5,000 unit Heparin Sodium (Porcine) (Heparin Flush 10 Units/Ml 5 Ml Syringe) 5 ml IV Q12 [facility] Last Admin: 12/04/22 20:33 Dose: 5 ml Hydralazine HCl (Hydralazine 20 Mg/Ml Vial) 0 mg IV Q2HP PRN PRN Reason: Hypertension Last Admin: 12/02/22 18:07 Dose: 20 mg Potassium Chloride 40 meq/ (Dextrose) 520 mls @ 130 mls/hr IV UD PRN PRN Reason: Potassium Level < 3 Last Infusion: 12/03/22 00:19 Dose: Infused Magnesium Sulfate (Magnesium Sulfate) 2 gm in 50 mls @ 25 mls/hr IV UD PRN PRN Reason: Magnesium Level </= 1.6 Labetalol HCl (Labetalol 5 Mg/Ml Ml) 0 mg IV Q2HP PRN PRN Reason: Hypertension Lorazepam (Lorazepam 1 Mg Tablet) 1 - 2 mg PO DAILYP PRN PRN Reason: ANXIETY/SEDATION Last Admin: 12/04/22 20:32 Dose: 1 mg Lorazepam (Lorazepam 1 Mg Tablet) 1 - 2 mg PO QDAY [facility]; Protocol Last Admin: 12/04/22 08:34 Dose: 1 mg Mirtazapine (Mirtazapine 15 Mg Tablet) 15 mg PO HS [facility] Last Admin: 12/04/22 20:33 Dose: 15 mg Ondansetron HCl (Ondansetron 4 Mg/2 Ml Vial) 4 mg IV Q4HP PRN PRN Reason: Nausea And Vomiting Last Admin: 12/04/22 05:07 Dose: 4 mg Polyethylene Glycol (Polyethylene Glycol 3350 17 Gm Packet) 17 gm PO DAILYP PRN PRN Reason: Constipation Potassium Chloride (Potassium Chloride 20 Meq Tablet) 40 meq PO UD PRN PRN Reason: Potassium Level of 3-3.5 Potassium Chloride (Potassium Chloride 20 Meq Tablet) 40 meq PO UD PRN PRN Reason: Potassium Level < 3 Last Admin: 12/02/22 16:15 Dose: 40 meq Promethazine HCl (Promethazine 25 Mg Supp.Rect) 25 mg MA Q6HP PRN PRN Reason: Nausea And Vomiting Ropinirole HCl (Ropinirole 0.25 Mg Tablet) 0.5 mg PO HSP PRN PRN Reason: restless leg Last Admin: 12/04/22 19:05 Dose: 0.5 mg Scopolamine (Scopolamine 1 Patch Patch) 1 patch TOPICAL Q72H [facility] Last Admin: 12/02/22 14:37 Dose: 1 patch Senna (Sennosides 1 Tablet) 2 tab PO DAILYP PRN PRN Reason: Constipation Sodium Chloride (0.9 % Sodium Chloride 10 Ml Syringe) 10 ml IV Q12 [facility] Last Admin: 12/04/22 20:40 Dose: 10 ml Sucralfate (Sucralfate 1 Gm Tablet) 1 gm PO BID [facility] Last Admin: 12/04/22 20:33 Dose: 1 gm Venlafaxine HCl (Venlafaxine 75 Mg Cap.Xl.24h) 225 mg PO QAM [facility] Last Admin: 12/04/22 08:33 Dose: 225 mg A/P Narrative A/P Narrative: A: *DKA-HHS (h/o DMI with h/o Gastroparesis/Neuropathy): usually triggered by noncompliance and poor self care -resolved *N/V: 2/2 above with gastroparesis and h/o cyclic vomiting and possibly marijuana hyperemesis -improved *Hyponatremia: corrected is 125 on admit *Generalized weakness/Falling upon standing-lightheadedness *Volume Depletion: improved *Cannabis use: possible Cannabis hyperemesis syndrome *CKD IV: Follows with Dr. Mills *Metabolic alkalosis: *Volume depletion: *Electrolyte d/o (hypochloremia/Hypermag/Hypokalemia): improving *Anemia, chronic: *HTN: *Anxiety/depression/binge eating disorder: on Fluoxetine *Long QT Syndrome: noted on EKG's since 2019. Pt is on SSRI *GERD: *recent Left distal Fib Fx: in spolint *long-term prognosis guarded if he doesn't become more vigilant in caring for his disease P: -f/u chemistry -started back on insulin pump -tolerating PO intake -Monitor electrolytes and replace -monitor sodium -advance diet as able to gastroparesis diet (low fat, soluble fiber) -Antiemetics that won't prolong QT (Scopolamine,Benzodiazepines) -cont home clonidine/BB, diltiazem held for soft BP -pt/ot -CM for placement -ppx: Heparin/H2 Time Spent With Patient Time: Total time spent is greater than 50% in coordination of care (as documented) at patient's floor/unit and/or counseling patient: Subsequent: Total time with patient: 35 - 49 minutes
[2022-12-05] MEDS: HEPARIN 5,000 UNIT/ML VIAL SQ SCH ×2 (09:25→21:39)
[2022-12-05] MEDS: LORazepam 1 MG TABLET PO SCH (09:25)
[2022-12-05] MEDS: VENLAFAXINE 75 MG CAP.XL.24H PO SCH (09:25)
[2022-12-05] MEDS: CARVEDILOL 6.25 MG TABLET PO SCH ×2 (09:25→17:51)
[2022-12-05] MEDS: FLUoxetine HCL 20 MG CAPSULE PO SCH (09:25)
[2022-12-05] MEDS: DOCUSATE SODIUM 100 MG CAPSULE PO SCH ×2 (09:26→21:40)
[2022-12-05] MEDS: 0.9 % SODIUM CHLORIDE 10 ML SYRINGE IV SCH ×2 (09:30→21:39)
[2022-12-05 09:36] LABS: Blood Urea Nitrogen 49 mg/dL (6-20); Calcium 8.7 mg/dL (8.6-10.4); Carbon Dioxide 26 mmol/L (22-30); Chloride 93 mmol/L (96-108); Glomerular Filtration Rate 20; Glucose 263 mg/dL (70-105)
[2022-12-05] MEDS ORDERED: 0.9 % SODIUM CHLORIDE 1,000 ML IV SCH (10:00)
[2022-12-05] MEDS: SUCRALFATE 1 GM TABLET PO SCH ×2 (12:11→21:39)
[2022-12-05] MEDS: SCOPOLAMINE 1 PATCH PATCH TOPICAL SCH (17:51)
[2022-12-05] MEDS: rOPINIRole 0.25 MG TABLET PO PRN (21:38)
[2022-12-05] MEDS: FAMOTIDINE 20 MG TABLET PO SCH (21:39)
[2022-12-05] MEDS: MIRTAZAPINE 15 MG TABLET PO SCH (21:41)
[2022-12-05] MEDS: LORazepam 1 MG TABLET PO PRN (21:41)
--- NOTE | 2022-12-06 07:33 | Internal Med Progress Note ---
SUBJECTIVE Subjective Patient information: Note initiated : 12/06/22 at 7:32 am Service Date, if different from initiated Date: [] Patient: Mauri Levine a 36 y/o M admitted on 12/02/22 for Vomiting, elevated BS. Chief Complaint: [] Interval history: History of present illness: Mr. Levine is a 36 year old M Presents to the ED with similar presentation in from the past. Patient says he developed some nausea vomiting and had a poor appetite and did not eat much for for 5 days and then his blood sugar shot up. He is also been falling lately because when he gets up he gets lightheaded and will fall. In the ED he had a blood gas [id number] which showed significant alkalosis which he has had in the past. Elevated bicarb. Lactate 2.0. Chemistry shows a sodium of 119 with a corrected of 125. Creatinine elevated 4.7. BUN elevated at 72. Anion gap noted at 22. Severely low chloride at 63.Magnesium elevated at 5.1. Beta hydroxybutyric acid and UA pending. Blood glucose of 492. Patient given IV fluid boluses in the ED and started on insulin drip. Patient denies vomiting today. But continued nausea. Poor appetite lighthead ed. No chest pain or shortness of breath.No diarrhea. pt last admitted earlier this month. 12/03 Patient started back on insulin pump. Patient tolerating oral diet. Will monitor blood glucose closely today. Patient also likely needs [facility] placement. Hyponatremia improving. Renal function stable. Magnesium still elevated but improving. 12/04 Patient feeling well this morning. Some outpatient double dosed on his evening bolus insulin and became hypoglycemic symptomatic. Patient is taken off insulin pump for the night. Will place insulin pump back on this morning. 12/05 Patient feeling well. Eating breakfast. Recommend physical therapy and case management for placement. Follow-up chemistry. Monitor blood glucose on insulin pump. Pending chemistry. 12/06 Patient actually pulled insulin pump out. Family will need to bring in insulin pump supplies. Blood glucose elevated. Start back on sliding scale with frequent Accu-Cheks and treat. Otherwise no new complaints overnight events. Review of Systems: denies headache/fever/chills/chest or abdominal pain/cough/dyspnea/diarrhea. Otherwise see above. PHYSICAL EXAM General: Alert, Awake, No acute Distress Eyes/N/T: EOMI, no scleral icterus, Head/Neck: neck supple, full ROM, CV: RRR, 3/6SM, Pulm: Clear b/l, no wheezing/rhonchi/rales, no respiratory distress Abd: soft, nontender, +BS x4 Ext: no clubbing/cyanosis/edema, nontender Neuro: Alert, no focal deficits, moves all extremities, , sensations intact b/l upper/lower Psychiatric: Skin: warm/dry, normal color Constitutional Vitals: Vital Signs Temp Pulse Resp BP Pulse Ox O2 Del Method O2 Flow Rate 98.2 F 75 18 167/89 100 Room Air 2 12/06/22 07:30 12/06/22 07:30 12/06/22 07:30 12/06/22 07:30 12/06/22 07:30 12/06/22 07:30 12/06/22 04:00 Period Temp Pulse Resp BP Sys/Menard Pulse Ox O2 Del Method O2 Flow Rate Last 24 Hr 97.7 F-98.9 F 72-77 16-18 126-167/68-90 94-100 Nasal Cannula-Room Air 2 Intake and Output 12/05/22 12/06/22 12/06/22 19:59 03:59 11:59 Intake Total 1220 2040 Output Total 300 625 Balance 1220 1740 -625 Weight 76.204 kg Intake & Output: Intake & Output 12/05/22 12/06/22 12/06/22 19:59 03:59 11:59 Intake Total 1220 2040 Output Total 300 625 Balance 1220 1740 -625 Weight 76.204 kg Intake: IV 1000 Sodium Chloride 0.9% 1,000 ml @ 1000 125 mls/hr IV .Q8H [facility] Rx#: [id number] Oral 320 1040 GI Tube Flush 900 Output: Void Amount 300 625 Other: Meal Dinner broth Percent of Meal Consumed 100% Feeding Ability Independent Urine Appearance Clear Clear Urine Color Pale Pale # Voids 1 # Bowel Movements 1 OBJ DATA Labs 12/03/22 05:36 12/05/22 08:32 Labs: Abnormal Lab Results 12/05/22 12/03/22 08:32 05:36 Sodium 130 L 132 L Chloride 93 L 88 L BUN 49 H 55 H Creatinine 3.7 H 4.2 H Glucose 263 H 111 H Uric Acid 8.2 H Magnesium 3.0 H 4.2 H* Alkaline Phosphatase 171 H Lactate Dehydrogenase 231 H Meds: Medications Albuterol/Ipratropium (Ipratropium/Albuterol 3 Ml Ampul.Neb) 3 ml NEB Q4HP PRN PRN Reason: Shortness Of Breath Carvedilol (Carvedilol 6.25 Mg Tablet) 6.25 mg PO BIDCC [facility] Last Admin: 12/05/22 17:51 Dose: 6.25 mg Clonidine HCl (Clonidine Tts 3 1 Patch Patch) 1 patch TD Fr@1000 [facility] Last Admin: 12/03/22 11:34 Dose: 1 patch Dextrose (Dextrose 50% 50 Ml Vial) 0 ml IV UD PRN PRN Reason: Per Sliding Scale Diagnostic Test (Pha) (Accu-Chek 1 Each Strip) 1 each FS ACHS [facility] Last Admin: 12/06/22 07:21 Dose: 1 each Diphenhydramine HCl (Diphenhydramine 25 Mg Capsule) 25 mg PO QHS PRN PRN Reason: insomnia Last Admin: 12/02/22 22:37 Dose: 25 mg Docusate Sodium (Docusate Sodium 100 Mg Capsule) 100 mg PO BID [facility] Last Admin: 12/05/22 21:40 Dose: Not Given Famotidine (Famotidine 20 Mg Tablet) 20 mg PO HS [facility] Last Admin: 12/05/22 21:39 Dose: 20 mg Fluoxetine HCl (Fluoxetine Hcl 20 Mg Capsule) 20 mg PO QDAY [facility] Last Admin: 12/05/22 09:25 Dose: 20 mg Glucose (Dextrose 31 Gm Oral.Susp) 15 gm PO PRN PRN PRN Reason: Hypoglycemia Last Admin: 12/04/22 05:53 Dose: 15 gm Heparin Sodium (Porcine) (Heparin 5,000 Unit/Ml Vial) 5,000 unit SQ Q12 [facility] Last Admin: 12/05/22 21:39 Dose: 5,000 unit Heparin Sodium (Porcine) (Heparin Flush 10 Units/Ml 5 Ml Syringe) 5 ml IV Q12 [facility] Last Admin: 12/05/22 21:40 Dose: 5 ml Hydralazine HCl (Hydralazine 20 Mg/Ml Vial) 0 mg IV Q2HP PRN PRN Reason: Hypertension Last Admin: 12/02/22 18:07 Dose: 20 mg Potassium Chloride 40 meq/ (Dextrose) 520 mls @ 130 mls/hr IV UD PRN PRN Reason: Potassium Level < 3 Last Infusion: 12/03/22 00:19 Dose: Infused Magnesium Sulfate (Magnesium Sulfate) 2 gm in 50 mls @ 25 mls/hr IV UD PRN PRN Reason: Magnesium Level </= 1.6 Insulin Human Lispro (Insulin Lispro 1 Unit/0.01 Ml Unit) 0 unit SQ ACHS [facility]; Protocol Labetalol HCl (Labetalol 5 Mg/Ml Ml) 0 mg IV Q2HP PRN PRN Reason: Hypertension Lorazepam (Lorazepam 1 Mg Tablet) 1 - 2 mg PO DAILYP PRN PRN Reason: ANXIETY/SEDATION Last Admin: 12/05/22 21:41 Dose: 1 mg Lorazepam (Lorazepam 1 Mg Tablet) 1 - 2 mg PO QDAY [facility]; Protocol Last Admin: 12/05/22 09:25 Dose: 1 mg Mirtazapine (Mirtazapine 15 Mg Tablet) 15 mg PO HS [facility] Last Admin: 12/05/22 21:41 Dose: 15 mg Ondansetron HCl (Ondansetron 4 Mg/2 Ml Vial) 4 mg IV Q4HP PRN PRN Reason: Nausea And Vomiting Last Admin: 12/04/22 05:07 Dose: 4 mg Polyethylene Glycol (Polyethylene Glycol 3350 17 Gm Packet) 17 gm PO DAILYP PRN PRN Reason: Constipation Potassium Chloride (Potassium Chloride 20 Meq Tablet) 40 meq PO UD PRN PRN Reason: Potassium Level of 3-3.5 Potassium Chloride (Potassium Chloride 20 Meq Tablet) 40 meq PO UD PRN PRN Reason: Potassium Level < 3 Last Admin: 12/02/22 16:15 Dose: 40 meq Promethazine HCl (Promethazine 25 Mg Supp.Rect) 25 mg [place] Q6HP PRN PRN Reason: Nausea And Vomiting Ropinirole HCl (Ropinirole 0.25 Mg Tablet) 0.5 mg PO HSP PRN PRN Reason: restless leg Last Admin: 12/05/22 21:38 Dose: 0.5 mg Scopolamine (Scopolamine 1 Patch Patch) 1 patch TOPICAL Q72H [facility] Last Admin: 12/05/22 17:51 Dose: 1 patch Senna (Sennosides 1 Tablet) 2 tab PO DAILYP PRN PRN Reason: Constipation Sodium Chloride (0.9 % Sodium Chloride 10 Ml Syringe) 10 ml IV Q12 [facility] Last Admin: 12/05/22 21:39 Dose: 10 ml Sucralfate (Sucralfate 1 Gm Tablet) 1 gm PO BID [facility] Last Admin: 12/05/22 21:39 Dose: 1 gm Venlafaxine HCl (Venlafaxine 75 Mg Cap.Xl.24h) 225 mg PO QAM [facility] Last Admin: 12/05/22 09:25 Dose: 225 mg A/P Narrative A/P Narrative: A: *DKA-HHS (h/o DMI with h/o Gastroparesis/Neuropathy): usually triggered by noncompliance and poor self care -resolved *N/V: 2/2 above with gastroparesis and h/o cyclic vomiting and possibly marijuana hyperemesis -improved *Hyponatremia: corrected is 125 on admit *Generalized weakness/Falling upon standing-lightheadedness *Volume Depletion: improved *Cannabis use: possible Cannabis hyperemesis syndrome *CKD IV: Follows with Dr. Mills *Metabolic alkalosis: *Volume depletion: *Electrolyte d/o (hypochloremia/Hypermag/Hypokalemia): improving *Anemia, chronic: *HTN: *Anxiety/depression/binge eating disorder: on Fluoxetine *Long QT Syndrome: noted on EKG's since 2019. Pt is on SSRI *GERD: *recent Left distal Fib Fx: in spolint *long-term prognosis guarded if he doesn't become more vigilant in caring for his disease P: -f/u chemistry -started back on insulin pump, lost pump site, start SSI until family brings in pump -tolerating PO intake -Monitor electrolytes and replace -monitor sodium -advance diet as able to gastroparesis diet (low fat, soluble fiber) -Antiemetics that won't prolong QT (Scopolamine,Benzodiazepines) -cont home clonidine/BB, diltiazem held for soft BP -pt/ot -CM for placement -ppx: Heparin/H2 Time Spent With Patient Time: Total time spent is greater than 50% in coordination of care (as documented) at patient's floor/unit and/or counseling patient: Subsequent: Total time with patient: 35 - 49 minutes
[2022-12-06] MEDS: INSULIN LISPRO 1 UNIT/0.01 ML UNIT SQ SCH ×10 (07:40→21:49)
[2022-12-06] MEDS: CARVEDILOL 6.25 MG TABLET PO SCH ×2 (08:54→17:12)
[2022-12-06] MEDS: FLUoxetine HCL 20 MG CAPSULE PO SCH (08:55)
[2022-12-06] MEDS: SUCRALFATE 1 GM TABLET PO SCH ×2 (08:55→21:48)
[2022-12-06] MEDS: LORazepam 1 MG TABLET PO SCH (08:55)
[2022-12-06] MEDS: DOCUSATE SODIUM 100 MG CAPSULE PO SCH ×2 (08:55→21:52)
[2022-12-06] MEDS: HEPARIN 5,000 UNIT/ML VIAL SQ SCH ×2 (08:55→21:51)
[2022-12-06] MEDS: 0.9 % SODIUM CHLORIDE 10 ML SYRINGE IV SCH ×2 (08:58→21:51)
[2022-12-06] MEDS: VENLAFAXINE 75 MG CAP.XL.24H PO SCH (08:58)
[2022-12-06] MEDS: rOPINIRole 0.25 MG TABLET PO PRN (21:49)
[2022-12-06] MEDS: MIRTAZAPINE 15 MG TABLET PO SCH (21:49)
[2022-12-06] MEDS: FAMOTIDINE 20 MG TABLET PO SCH (21:49)
[2022-12-06] MEDS: DILTIAZEM 30 MG TABLET PO SCH (21:49)
[2022-12-06] MEDS: LORazepam 1 MG TABLET PO PRN (21:49)
[2022-12-06] MEDS: INSULIN GLARGINE, HUMAN 1 UNIT/0.01 ML SQ SCH (21:50)
[2022-12-07] MEDS: DILTIAZEM 30 MG TABLET PO SCH ×2 (05:53→13:24)
[2022-12-07] MEDS: INSULIN LISPRO 1 UNIT/0.01 ML UNIT SQ SCH ×7 (07:12→21:00)
[2022-12-07 07:27] LABS: ALT/SGPT 28 U/L (<40); AST/SGOT 22 U/L (<40); Albumin 3.1 gm/dL (3.2-5.2); Albumin/Globulin Ratio 1.1 (1.0-2.3); Alkaline Phosphatase 142 U/L (39-117); Basophils # (Auto) 0.04 K/mcL (0.00-0.30); Basophils % (Auto) 0.6 % (0.0-2.0); Bilirubin,Total < 0.2 mg/dL (0.1-1.0); Blood Urea Nitrogen 47 mg/dL (6-20); Calcium 9.1 mg/dL (8.6-10.4); Carbon Dioxide 21 mmol/L (22-30); Chloride 103 mmol/L (96-108); Eosinophils # (Auto) 0.14 K/mcL (0.00-0.70); Globulin 2.8 gm/dL (2.2-3.7); Glomerular Filtration Rate 25; Glucose 211 mg/dL (70-105); Hematocrit 27.3 % (40.1-51.0); Hemoglobin 8.9 g/dL (13.7-17.5); Lymphocytes # (Auto) 2.31 K/mcL (1.50-4.80); Lymphocytes % (Auto) 32.5 % (15.5-49.0); Mean Cell Volume 77.1 fL (80.0-100.0); Mean Corpuscular HGB Conc 32.6 g/dL (31.0-36.0); Mean Platelet Volume 11.5 fL (8.8-12.5); Monocytes # (Auto) 0.52 K/mcL (0.10-0.90); Monocytes % (Auto) 7.3 % (1.0-12.0); Neutrophils % (Auto) 57.2 % (38.0-78.0); Platelet Count 234 K/mcL (140-440); RBC 3.54 M/mcL (4.63-6.08); Red Cell Distribution Width 15.7 % (11.5-14.5); WBC 7.1 K/mcL (4.5-11.0)
[2022-12-07] MEDS: INSULIN GLARGINE, HUMAN 1 UNIT/0.01 ML SQ SCH (07:38)
[2022-12-07] MEDS: FLUoxetine HCL 20 MG CAPSULE PO SCH (08:33)
[2022-12-07] MEDS: LORazepam 1 MG TABLET PO SCH (08:34)
[2022-12-07] MEDS: VENLAFAXINE 75 MG CAP.XL.24H PO SCH (08:34)
[2022-12-07] MEDS: DOCUSATE SODIUM 100 MG CAPSULE PO SCH ×2 (08:34→20:28)
[2022-12-07] MEDS: SUCRALFATE 1 GM TABLET PO SCH ×2 (08:34→20:28)
[2022-12-07] MEDS: CARVEDILOL 6.25 MG TABLET PO SCH ×2 (08:34→17:39)
[2022-12-07] MEDS: HEPARIN 5,000 UNIT/ML VIAL SQ SCH ×2 (08:34→20:28)
[2022-12-07] MEDS: 0.9 % SODIUM CHLORIDE 10 ML SYRINGE IV SCH ×2 (08:35→21:10)
--- NOTE | 2022-12-07 14:17 | Internal Med Progress Note ---
SUBJECTIVE Subjective Patient information: Note initiated : 12/07/22 at 2:09 pm Service Date, if different from initiated Date: [] Patient: Mauri Levine a 36 y/o M admitted on 12/02/22 for Vomiting, elevated BS. Chief Complaint: [] Interval history: Mr. Levine is a 36 year old M Presents to the ED with similar presentation in from the past. Patient says he developed some nausea vomiting and had a poor appetite and did not eat much for for 5 days and then his blood sugar shot up. He is also been falling lately because when he gets up he gets lightheaded and will fall. In the ED he had a blood gas [id number] which showed significant alkalosis which he has had in the past. Elevated bicarb. Lactate 2.0. Chemistry shows a sodium of 119 with a corrected of 125. Creatinine elevated 4.7. BUN elevated at 72. Anion gap noted at 22. Severely low chloride at 63.Magnesium elevated at 5.1. Beta hydroxybutyric acid and UA pending. Blood glucose of 492. Patient given IV fluid boluses in the ED and started on insulin drip. Patient denies vomiting today. But continued nausea. Poor appetite lightheaded. No chest pain or shortness of breath.No diarrhea. pt last admitted earlier this month. 12/03 Patient started back on insulin pump. Patient tolerating oral diet. Will monitor blood glucose closely today. Patient also likely needs senior living placement. Hyponatremia improving. Renal function stable. Magnesium still elevated but improving. 12/04 Patient feeling well this morning. Some outpatient double dosed on his evening bolus insulin and became hypoglycemic symptomatic. Patient is taken off insulin pump for the night. Will place insulin pump back on this morning. 12/05 Patient feeling well. Eating breakfast. Recommend physical therapy and case management for placement. Follow-up chemistry. Monitor blood glucose on insulin pump. Pending chemistry. 12/06 Patient actually pulled insulin pump out. Family will need to bring in insulin pump supplies. Blood glucose elevated. Start back on sliding scale with frequent Accu-Cheks and treat. Otherwise no new complaints overnight events. 12/07: Fasting glucose 252 this morning. No hypoglycemia episode. There was no other major overnight events. Patient was being interviewed by staff from [facility], conclusion from that interview still pending. Patient will restart his insulin pump tonight. Continue hypoglycemia protocol for the time being. Continue to work with assistant case manager for placement planning. Overall condition stable. Stay in [facility] until getting placed into SNF. Constitutional Vitals: Vital Signs Temp Pulse Resp BP Pulse Ox O2 Del Method O2 Flow Rate 36.5 C 60 16 122/78 100 Room Air 2 12/07/22 11:59 12/07/22 11:59 12/07/22 04:09 12/07/22 11:59 12/07/22 11:59 12/07/22 11:59 12/06/22 04:00 Period Temp Pulse Resp BP Sys/Menard Pulse Ox O2 Del Method O2 Flow Rate Last 24 Hr 36.5 C-37.0 C 60-76 14-18 108-161/73-91 96-100 Room Air-Room Air Intake and Output 12/07/22 12/07/22 12/07/22 03:59 11:59 19:59 Intake Total 880 1000 Output Total 450 2225 Balance 430 -1225 Intake & Output: Intake & Output 12/07/22 12/07/22 12/07/22 03:59 11:59 19:59 Intake Total 880 1000 Output Total 450 2225 Balance 430 -1225 Intake: Oral 880 1000 Output: Void Amount 450 2225 Other: Meal Soup/broth Breakfast Percent of Meal Consumed 100% 100% Feeding Ability Independent Independent Urine Appearance Clear Clear Urine Color Pale Yellow Pale Head Head exam: Present atraumatic and normal inspection Eye Eye exam: Present normal appearance ENT ENT exam: Present mucous membranes moist, normal exam and normal external ear exam Neck Neck exam: Present normal inspection Respiratory Respiratory exam: Present normal respiratory exam Cardiovascular Cardiovascular exam: Present normal rate and rhythm GI/Abdominal GI/Abdominal exam: Present normal bowel sounds Extremities Exam Extremities exam: Present tenderness Additional comments: Left ankle tenderness to palpation Back Exam Back exam: Present normal inspection Neurological Exam Neurological exam: Present alert and oriented X3 Skin Skin exam: Present intact and warm OBJ DATA Labs 12/07/22 05:28 12/07/22 05:28 Labs: Abnormal Lab Results 12/07/22 12/07/22 12/05/22 05:28 05:28 08:32 RBC 3.54 L Hgb 8.9 L Hct 27.3 L MCV 77.1 L MCH 25.1 L RDW 15.7 H Sodium 130 L Chloride 93 L Carbon Dioxide 21 L BUN 47 H 49 H Creatinine 3.1 H 3.7 H Glucose 211 H 263 H Magnesium 3.0 H Alkaline Phosphatase 142 H Albumin 3.1 L Meds: Medications Albuterol/Ipratropium (Ipratropium/Albuterol 3 Ml Ampul.Neb) 3 ml NEB Q4HP PRN PRN Reason: Shortness Of Breath Carvedilol (Carvedilol 6.25 Mg Tablet) 6.25 mg PO BIDCC [facility] Last Admin: 12/07/22 08:34 Dose: 6.25 mg Clonidine HCl (Clonidine Tts 3 1 Patch Patch) 1 patch TD Fr@1000 [facility] Last Admin: 12/03/22 11:34 Dose: 1 patch Dextrose (Dextrose 50% 50 Ml Vial) 0 ml IV UD PRN PRN Reason: Per Sliding Scale Diagnostic Test (Pha) (Accu-Chek 1 Each Strip) 1 each FS ACHS [facility] Last Admin: 12/07/22 11:28 Dose: 1 each Diltiazem HCl (Diltiazem 30 Mg Tablet) 60 mg PO Q8H [facility] Last Admin: 12/07/22 13:24 Dose: 60 mg Diphenhydramine HCl (Diphenhydramine 25 Mg Capsule) 25 mg PO QHS PRN PRN Reason: insomnia Last Admin: 12/02/22 22:37 Dose: 25 mg Docusate Sodium (Docusate Sodium 100 Mg Capsule) 100 mg PO BID [facility] Last Admin: 12/07/22 08:34 Dose: 100 mg Famotidine (Famotidine 20 Mg Tablet) 20 mg PO HS [facility] Last Admin: 12/06/22 21:49 Dose: 20 mg Fluoxetine HCl (Fluoxetine Hcl 20 Mg Capsule) 20 mg PO QDAY [facility] Last Admin: 12/07/22 08:33 Dose: 20 mg Glucose (Dextrose 31 Gm Oral.Susp) 15 gm PO PRN PRN PRN Reason: Hypoglycemia Last Admin: 12/04/22 05:53 Dose: 15 gm Heparin Sodium (Porcine) (Heparin 5,000 Unit/Ml Vial) 5,000 unit SQ Q12 [facility] Last Admin: 12/07/22 08:34 Dose: 5,000 unit Heparin Sodium (Porcine) (Heparin Flush 10 Units/Ml 5 Ml Syringe) 5 ml IV Q12 [facility] Last Admin: 12/07/22 08:34 Dose: 5 ml Hydralazine HCl (Hydralazine 20 Mg/Ml Vial) 0 mg IV Q2HP PRN PRN Reason: Hypertension Last Admin: 12/02/22 18:07 Dose: 20 mg Potassium Chloride 40 meq/ (Dextrose) 520 mls @ 130 mls/hr IV UD PRN PRN Reason: Potassium Level < 3 Last Infusion: 12/03/22 00:19 Dose: Infused Magnesium Sulfate (Magnesium Sulfate) 2 gm in 50 mls @ 25 mls/hr IV UD PRN PRN Reason: Magnesium Level </= 1.6 Insulin Human Lispro (Insulin Lispro 1 Unit/0.01 Ml Unit) 0 unit SQ ACHS [facility]; Protocol Last Admin: 12/07/22 11:28 Dose: Not Given Insulin Human Lispro (Insulin Lispro 1 Unit/0.01 Ml Unit) 6 unit SQ AC [facility] Last Admin: 12/07/22 12:31 Dose: 6 units Labetalol HCl (Labetalol 5 Mg/Ml Ml) 0 mg IV Q2HP PRN PRN Reason: Hypertension Last Admin: 12/06/22 11:57 Dose: 20 mg Lorazepam (Lorazepam 1 Mg Tablet) 1 - 2 mg PO DAILYP PRN PRN Reason: ANXIETY/SEDATION Last Admin: 12/06/22 21:49 Dose: 1 mg Lorazepam (Lorazepam 1 Mg Tablet) 1 - 2 mg PO QDAY [facility]; Protocol Last Admin: 12/07/22 08:34 Dose: 1 mg Mirtazapine (Mirtazapine 15 Mg Tablet) 15 mg PO [facility] Last Admin: 12/06/22 21:49 Dose: 15 mg Ondansetron HCl (Ondansetron 4 Mg/2 Ml Vial) 4 mg IV Q4HP PRN PRN Reason: Nausea And Vomiting Last Admin: 12/04/22 05:07 Dose: 4 mg Polyethylene Glycol (Polyethylene Glycol 3350 17 Gm Packet) 17 gm PO DAILYP PRN PRN Reason: Constipation Potassium Chloride (Potassium Chloride 20 Meq Tablet) 40 meq PO UD PRN PRN Reason: Potassium Level of 3-3.5 Potassium Chloride (Potassium Chloride 20 Meq Tablet) 40 meq PO UD PRN PRN Reason: Potassium Level < 3 Last Admin: 12/02/22 16:15 Dose: 40 meq Promethazine HCl (Promethazine 25 Mg Supp.Rect) 25 mg [place] Q6HP PRN PRN Reason: Nausea And Vomiting Ropinirole HCl (Ropinirole 0.25 Mg Tablet) 0.5 mg PO HSP PRN PRN Reason: restless leg Last Admin: 12/06/22 21:49 Dose: 0.5 mg Scopolamine (Scopolamine 1 Patch Patch) 1 patch TOPICAL Q72H [facility] Last Admin: 12/05/22 17:51 Dose: 1 patch Senna (Sennosides 1 Tablet) 2 tab PO DAILYP PRN PRN Reason: Constipation Sodium Chloride (0.9 % Sodium Chloride 10 Ml Syringe) 10 ml IV Q12 [facility] Last Admin: 12/07/22 08:35 Dose: 10 ml Sucralfate (Sucralfate 1 Gm Tablet) 1 gm PO BID [facility] Last Admin: 12/07/22 08:34 Dose: 1 gm Venlafaxine HCl (Venlafaxine 75 Mg Cap.Xl.24h) 225 mg PO QAM [facility] Last Admin: 12/07/22 08:34 Dose: 225 mg A/P Assessment and plan (1) Diabetic gastroparesis associated with type 1 diabetes mellitus: Status: Chronic (2) CKD stage 4 due to type 1 diabetes mellitus: Status: Acute Comment: Every episode of hyperglycemia, DKA, dehydration brings him closer to renal replacement therapy. This would be futile unless he can prevent the N/V DKA and stop illicit drug use. Compliance will also be and major stumbling block to survival with HD (3) DKA, type 1, not at goal: Status: Acute Comment: The anion gap is present but "hidden" by the huge metabolic and respiratory alkalosis. (4) Diabetic gastroparesis: Status: Acute (5) Depression: Status: Acute (6) Anxiety: Status: Chronic (7) Ankle fracture, left: Status: Acute Qualifiers: Encounter type: initial encounter Fracture type: closed Qualified Code(s): S82.892A - Other fracture of left lower leg, initial encounter for closed fracture Narrative A/P Narrative: Assessment and Plans: 1. DKA type 1: Resolved, insulin drip stopped. s/p Lantus 15 unit given in the AM. Will switch to insulin pump this evening Diabetes education Pending SNF placement 2. Diabetic gastroparesis: Phenergan Zofran Benadryl Scopolamine 3. Anxiety depression: Ativan Fluoxetine Mirtazapine 4. Left ankle fracture: Tall cam boot Follow up with orthopedic surgery outpatient 5. Chronic kidney disease IV associated with T1DM: Avoid nephrotoxic agents Saline lock GI ppx: Pepcid DVT ppx: Heparin Code status: Full Prognosis: stable Disposition: inpatient med surg Time Spent With Patient Time: Total time spent is greater than 50% in coordination of care (as documented) at patient's floor/unit and/or counseling patient: Subsequent: Total time with patient: 35 - 49 minutes
[2022-12-07] MEDS: MIRTAZAPINE 15 MG TABLET PO SCH (20:28)
[2022-12-07] MEDS: LORazepam 1 MG TABLET PO PRN (20:28)
[2022-12-07] MEDS: FAMOTIDINE 20 MG TABLET PO SCH (20:28)
[2022-12-07] MEDS: rOPINIRole 0.25 MG TABLET PO PRN (20:35)
[2022-12-08] MEDS: DILTIAZEM 30 MG TABLET PO SCH ×2 (00:19→07:04)
[2022-12-08] MEDS: INSULIN LISPRO 1 UNIT/0.01 ML UNIT SQ SCH ×2 (07:09→11:52)
[2022-12-08] MEDS: LORazepam 1 MG TABLET PO SCH (08:54)
[2022-12-08] MEDS: HEPARIN 5,000 UNIT/ML VIAL SQ SCH (08:54)
[2022-12-08] MEDS: 0.9 % SODIUM CHLORIDE 10 ML SYRINGE IV SCH (08:55)
[2022-12-08] MEDS: CARVEDILOL 6.25 MG TABLET PO SCH (08:55)
[2022-12-08] MEDS: FLUoxetine HCL 20 MG CAPSULE PO SCH (08:55)
[2022-12-08] MEDS: DOCUSATE SODIUM 100 MG CAPSULE PO SCH (08:55)
[2022-12-08] MEDS: VENLAFAXINE 75 MG CAP.XL.24H PO SCH (08:55)
[2022-12-08] MEDS: SUCRALFATE 1 GM TABLET PO SCH (08:55)
--- NOTE | 2022-12-08 11:37 | Discharge Summary ---
Discharge Provider Provider IMPORTANT FOLLOW-UP INFORMATION FOR PCP: Patient information: Note initiated : 12/08/22 at 11:35 am Service Date, if different from initiated Date: [] Patient: Mauri Levine 36 y/o M admitted on 12/02/22 for Vomiting, elevated BS. Chief Complaint: [] Date of admission: 12/02/22 12:06 Discharge date: 12/08/22 Primary care physician: Flo Peña MD Attending physician on admission: Deangelo Basilio Consults: 12/02/22 Consult to Physician [CONS] Stat Comment: Consulting Provider: Deangelo Basilio Reason For Exam: Physician to Consult Attending physician on discharge: Chi Luciana Pui COURSE Hospital Course Hospital course: Mr. Levine is a 36 year old M Presents to the ED with similar presentation in from the past. Patient says he developed some nausea vomiting and had a poor appetite and did not eat much for for 5 days and then his blood sugar shot up. He is also been falling lately bec ause when he gets up he gets lightheaded and will fall. In the ED he had a blood gas [id number] which showed significant alkalosis which he has had in the past. Elevated bicarb. Lactate 2.0. Chemistry shows a sodium of 119 with a corrected of 125. Creatinine elevated 4.7. BUN elevated at 72. Anion gap noted at 22. Severely low chloride at 63.Magnesium elevated at 5.1. Beta hydroxybutyric acid and UA pending. Blood glucose of 492. Patient given IV fluid boluses in the ED and started on insulin drip. Patient denies vomiting today. But continued nausea. Poor appetite lighthea ded. No chest pain or shortness of breath.No diarrhea. pt last admitted earlier this month. 12/03 Patient started back on insulin pump. Patient tolerating oral diet. Will monitor blood glucose closely today. Patient also likely needs [facility] placement. Hyponatremia improving. Renal function stable. Magnesium still elevated but improving. 12/04 Patient feeling well this morning. Some outpatient double dosed on his evening bolus insulin and became hypoglycemic symptomatic. Patient is taken off insulin pump for the night. Will place insulin pump back on this morning. 12/05 Patient feeling well. Eating breakfast. Recommend physical therapy and case management for placement. Follow-up chemistry. Monitor blood glucose on insulin pump. Pending chemistry. 12/06 Patient actually pulled insulin pump out. Family will need to bring in insulin pump supplies. Blood glucose elevated. Start back on sliding scale with frequent Accu-Cheks and treat. Otherwise no new complaints overnight events. 12/07: Fasting glucose 252 this morning. No hypoglycemia episode. There was no other major overnight events. Patient was being interviewed by staff from [facility], conclusion from that interview still pending. Patient will restart his insulin pump tonight. Continue hypoglycemia protocol for the time being. Continue to work with rn field case manager for placement planning. Overall condition stable. Stay in [facility] until getting placed into SNF. 12/08: Clinically stable. [facility] cannot take patient. Patient discharged home instead. 1-2 week follow up appointment with PCP arranged for him. All questions were answered prior to patient being physically discharged. Discharge diagnosis: DKA Time Spent with Patient Time attestation: Total time spent providing and/or coordinating discharge services: Time spent: Less than 30 minutes EXAM Constitutional Vitals: Temp Pulse Resp BP Pulse Ox O2 Del Method O2 Flow Rate 36.6 C 79 20 152/86 100 Room Air 2 12/08/22 11:30 12/08/22 11:30 12/08/22 02:54 12/08/22 11:30 12/08/22 11:30 12/08/22 11:30 12/06/22 04:00 General appearance: cooperative and no acute distress Head Head exam: Present atraumatic and normocephalic Eye Eye exam: Present EOMI and PERRL ENT ENT exam: Present mucous membranes moist, normal exam and normal external ear exam Neck Neck exam: Present normal inspection; Absent lymphadenopathy, tenderness or thyromegaly Respiratory Respiratory exam: Absent accessory muscle use, respiratory distress or wheezes Cardiovascular Cardiovascular exam: Present normal rate and rhythm; Absent JVD GI/Abdominal GI/Abdominal exam: Present normal bowel sounds and soft; Absent organomegaly or tenderness Rectal Rectal exam: Present deferred Extremities Exam Extremities exam: Present normal capillary refill and tenderness; Absent full ROM or normal inspection Additional comments: Left ankle tenderness and limited ROMs due to pain Neurological Exam Neurological exam: Present alert, CN II-XII intact and oriented X3; Absent motor sensory deficit Psychiatric Psychiatric exam: Present normal affect and normal mood; Absent anxious or depressed Skin Skin exam: Present dry and intact Discharge Plan Patient/Caregiver Discharge Instructions Activity: increase activity as tolerated Diet: Renal/Consistent Carbs Instructions: Diabetic Ketoacidosis (GEN), Hypoglycemia in a Person with Diabetes (GEN), Acute Nausea and Vomiting (GEN) Activity Restrictions/Additional Instructions: Increase activity as tolerated, wear a walking boot while walking until seen by Orthopedic Dr. Continue with a renal, consistent carbohydrate diet. Follow up with Dr. Louis as previously scheduled. Follow up with your Primary Care Physician when they contact you to schedule an appointment. Prescriptions: New promethazine [Promethegan] 25 mg Suppository 25 mg IL Q6HP PRN (Reason: Nausea And Vomiting) Qty: 12 0RF mirtazapine 15 mg Tablet 15 mg PO HS Qty: 30 0RF lorazepam 1 mg Tablet 1 - 2 mg PO QDAY Qty: 20 0RF sucralfate 1 gram Tablet 1 gm PO BID Qty: 30 0RF ropinirole 0.25 mg Tablet 0.5 mg PO HSP PRN (Reason: restless leg) Qty: 30 0RF Continued (DME) insulin syringes (disposable) 1 mL syringe See Rx Instructions .Route Qty: 500 0RF Rx Instructions: use for insulin three times daily ondansetron 4 mg tablet,disintegrating 4 mg PO Q8H Qty: 120 0RF fluoxetine 20 mg capsule 20 mg PO QDAY Qty: 90 1RF famotidine 20 mg tablet 20 mg PO BID Qty: 90 1RF venlafaxine 75 mg capsule,extended release 24hr 225 mg PO QAM Qty: 90 5RF carvedilol 6.25 mg tablet 6.25 mg PO BID Qty: 60 5RF diltiazem HCl 60 mg tablet 60 mg PO Q8H 90 Days Qty: 270 0RF Baqsimi 3 mg/actuation spray,non-aerosol 3 mg intranasal ONCE PRN (Reason: hypoglycemia) Qty: 1 3RF Rx Instructions: 1 spray intranasal as needed Gvoke HypoPen 1-Pack 1 mg/0.2 mL auto-injector 1 mg subcut ONCE Qty: 0.2 0RF Rx Instructions: as a single dose; may repeat once after 15 minutes if no response (DME) blood-glucose meter Misc See Rx Instructions .Route Qty: 1 3RF Rx Instructions: use to test blood sugar 5 times daily (DME) Blood Glucose Test Strip See Rx Instructions .ROUTE .MEDSUPPLY Qty: 500 3RF Rx Instructions: use to test blood sugar 5 times daily (DME) lancets Misc See Rx Instructions .Route Qty: 500 3RF Rx Instructions: use to test blood sugar 5 times daily diphenhydramine HCl [EZ Nite Sleep] 25 mg capsule 25 mg PO QHS PRN (Reason: insomnia) Qty: 30 1RF insulin aspart U-100 [Novolog U-100 Insulin aspart] 100 unit/mL solution See Rx Instructions subcut TID Qty: 60 1RF Rx Instructions: subcut three times daily with meals; Moderate Dose Scale Blood Sugar (mg/dL), Units Insulin 70-130, 0 units 131-180, 4 units 181-240, 8 units 241-300, 10 units 301-350, 12 units 351-400, 16 units >400, 20 units and call amlodipine 10 mg tablet 10 mg PO QDAY clonidine 0.1 mg/24 hr patch weekly 1 patch transdermal WEEKLY insulin glargine [Lantus U-100 Insulin] 100 unit/mL solution 10 unit subcut HS PRN (Reason: if insulin pump fail) Rx Instructions: if insulin pump fails Follow Up Plan Follow up with: Nithin Louis MD [Physician] - (Continue with your current appointment) Flo Peña MD [Primary Care Provider] - Patient Disposition: Home, Self-Care Prognosis: Undetermined Rehab Potential: Fair I certify that the patient requires SNF services: Yes Overall status at discharge: patient is progressing back to baseline Discharge Orders: Discharge Order (Routine); Ordered 12/08/22 Ordered By: Mustapha Freeman
[2022-12-08] MEDS: SCOPOLAMINE 1 PATCH PATCH TOPICAL SCH (13:26)
== END 2022-12-08 13:25 | disposition home or self-care (01) | DRG 638 ==
LOC: ED 08:35 → ICU 12:06
PROVIDERS: ADMIT Internal Medicine; ATTEND Internal Medicine

== ENCOUNTER 2023-01-05 06:35 | Inpatient (IN) ==
[2023-01-05] MEDS ORDERED: 0.9 % SODIUM CHLORIDE 1,000 ML IV ONE (07:17)
[2023-01-05] MEDS ORDERED: ONDANSETRON 4 MG/2 ML VIAL IV ONE (07:22)
[2023-01-05 07:26] LABS: Basophils # (Auto) 0.02 K/mcL (0.00-0.30); Basophils % (Auto) 0.2 % (0.0-2.0); Eosinophils # (Auto) 0 K/mcL (0.00-0.70); Eosinophils % (Auto) 0 % (0.0-7.0); Hemoglobin 9.4 g/dL (13.7-17.5); Lymphocytes # (Auto) 1.12 K/mcL (1.50-4.80); Lymphocytes % (Auto) 8.8 % (15.5-49.0); Mean Cell Volume 93.9 fL (80.0-100.0); Mean Corpuscular HGB Conc 27.6 g/dL (31.0-36.0); Monocytes # (Auto) 1.02 K/mcL (0.10-0.90); Neutrophils % (Auto) 82.5 % (38.0-78.0); Platelet Count 345 K/mcL (140-440); RBC 3.62 M/mcL (4.63-6.08); Red Cell Distribution Width 15.7 % (11.5-14.5); WBC 12.8 K/mcL (4.5-11.0)
[2023-01-05] MEDS ORDERED: INSULIN REGULAR, HUMAN 50 UNIT in 0.9 % SODIUM CHLORIDE 99.5 ML IV ONE (07:39)
[2023-01-05] MEDS ORDERED: 0.9 % SODIUM CHLORIDE 1,000 ML IV SCH (07:45)
[2023-01-05] MEDS ORDERED: NACL 0.9% W/KCL 20MEQ 1,000 ML IV SCH (07:45)
--- NOTE | 2023-01-05 07:57 | Emergency Department Note ---
Course Vital Signs Vital signs: Vital Signs Pulse Rate 76 01/05/23 06:35 Respiratory Rate 17 01/05/23 06:35 Blood Pressure 101/56 01/05/23 06:35 Pulse Oximetry (%) 100 01/05/23 06:35 Oxygen Delivery Method Room Air 01/05/23 06:35 Pulse Rate 78 01/05/23 07:31 Respiratory Rate 17 01/05/23 07:44 Blood Pressure 112/48 01/05/23 07:31 Pulse Oximetry (%) 97 01/05/23 07:31 Oxygen Delivery Method Room Air 01/05/23 06:35 MDM MDM Narrative Medical decision making narrative: Narrative: Lab Data 01/05/23 06:47 01/05/23 06:47 Labs: Lab Results 01/05/23 01/05/23 Range/Units 06:47 06:47 WBC 12.8 H (4.5-11.0) K/mcL RBC 3.62 L (4.63-6.08) M/mcL Hgb 9.4 L (13.7-17.5) g/dL Hct 34.0 L (40.1-51.0) % MCV 93.9 (80.0-100.0) fL MCH 26.0 (26.0-34.0) pg MCHC 27.6 L (31.0-36.0) g/dL RDW 15.7 H (11.5-14.5) % Plt Count 345 (140-440) K/mcL MPV 12.0 (8.8-12.5) fL Immature Gran % (Auto) 0.5 (0.0-0.5) % Neut % (Auto) 82.5 H (38.0-78.0) % Lymph % (Auto) 8.8 L (15.5-49.0) % [place] % (Auto) 8.0 (1.0-12.0) % Eos % (Auto) 0 (0.0-7.0) % Baso % (Auto) 0.2 (0.0-2.0) % Lymph # (Auto) 1.12 L (1.50-4.80) K/mcL [place] # (Auto) 1.02 H (0.10-0.90) K/mcL Eos # (Auto) 0 (0.00-0.70) K/mcL Baso # (Auto) 0.02 (0.00-0.30) K/mcL Immature Gran # 0.07 H (0.00-0.05) K/mcl Absolute Neutrophils 10.54 H (1.80-8.00) K/mcL POC VBG pH 7.34 (7.32-7.42) POC VBG pCO2 at Temp 46.3 (41-51) POC VBG pO2 47 H (25-40) POC VBG HCO3 24.7 (24-28) POC VBG Total CO2 26.0 (25-29) POC Venous O2 Sat 80.0 H (40-70) POC VBG Base Excess -1.0 (-2-2) VBG Lactic Acid 1.8 (0.5-2) Discharge Plan Patient/Caregiver Discharge Instructions Follow up with: Flo Peña MD [Primary Care Provider] - Prescriptions: No Action (DME) insulin syringes (disposable) 1 mL syringe See Rx Instructions .Route Qty: 500 0RF Rx Instructions: use for insulin three times daily fluoxetine 20 mg capsule 20 mg PO QDAY Qty: 90 1RF famotidine 20 mg tablet 20 mg PO BID Qty: 90 1RF venlafaxine 75 mg capsule,extended release 24hr 225 mg PO QAM Qty: 90 5RF carvedilol 6.25 mg tablet 6.25 mg PO BID Qty: 60 5RF Baqsimi 3 mg/actuation spray,non-aerosol 3 mg intranasal ONCE PRN (Reason: hypoglycemia) Qty: 1 3RF Rx Instructions: 1 spray intranasal as needed Gvoke HypoPen 1-Pack 1 mg/0.2 mL auto-injector 1 mg subcut ONCE Qty: 0.2 0RF Rx Instructions: as a single dose; may repeat once after 15 minutes if no response diltiazem HCl 60 mg tablet 60 mg PO QDAY ondansetron 4 mg tablet,disintegrating 4 mg PO Q8H PRN (Reason: cyclic vomiting) hydrocortisone [Anusol-HC] 2.5 % cream with perineal applicator 1 applic ME TID PRN (Reason: hemorrhoids) Qty: 30 0RF Rx Instructions: Use for no longer than 2 weeks. (DME) blood-glucose meter Misc See Rx Instructions .Route Qty: 1 3RF Rx Instructions: use to test blood sugar 5 times daily (DME) Blood Glucose Test Strip See Rx Instructions .ROUTE .MEDSUPPLY Qty: 500 3RF Rx Instructions: use to test blood sugar 5 times daily (DME) lancets Misc See Rx Instructions .Route Qty: 500 3RF Rx Instructions: use to test blood sugar 5 times daily diphenhydramine HCl [EZ Nite Sleep] 25 mg capsule 25 mg PO QHS PRN (Reason: insomnia) Qty: 30 1RF insulin aspart U-100 [Novolog U-100 Insulin aspart] 100 unit/mL solution See Rx Instructions subcut TID Qty: 60 1RF Rx Instructions: subcut three times daily with meals; Moderate Dose Scale Blood Sugar (mg/dL), Units Insulin 70-130, 0 units 131-180, 4 units 181-240, 8 units 241-300, 10 units 301-350, 12 units 351-400, 16 units >400, 20 units and call amlodipine 10 mg tablet 10 mg PO QDAY clonidine 0.1 mg/24 hr patch weekly 1 patch transdermal WEEKLY promethazine [Promethegan] 25 mg Suppository 25 mg [place] Q6HP PRN (Reason: Nausea And Vomiting) Qty: 12 0RF mirtazapine 15 mg Tablet 15 mg PO HS Qty: 30 0RF lorazepam 1 mg Tablet 1 - 2 mg PO QDAY Qty: 20 0RF sucralfate 1 gram Tablet 1 gm PO BID Qty: 30 0RF ropinirole 0.25 mg Tablet 0.5 mg PO HSP PRN (Reason: restless leg) Qty: 30 0RF insulin glargine [Lantus U-100 Insulin] 100 unit/mL solution 10 unit subcut HS PRN (Reason: if insulin pump fail) Rx Instructions: if insulin pump fails
--- NOTE | 2023-01-05 07:59 | Emergency Department Note ---
HPI General Chief complaint: Blood Sugar Problem Stated complaint: High blood sugar Time Seen by Provider: 01/05/23 06:40 Source: patient and EMS Mode of arrival: EMS Limitations: no limitations History of Present Illness HPI Narrative: Narrative: This is a 37-year-old male with a history of type 1 diabetes on an insulin pump presents to the emergency department with nausea and vomiting in his pump not working for 2 days. Patient reports that he has been trying to give himself insulin but has been unable to keep up his continuous glucose monitor has read "high". Patient reports abdominal pain the midepigastric area, no diarrhea no fevers or chills. Related Data Home Medications Medication Instructions Recorded Confirmed insulin glargine 100 unit/mL 10 unit subcut HS PRN if insulin 11/19/22 01/05/23 subcutaneous solution (Lantus pump fail U-100 Insulin) amlodipine 10 mg tablet 10 mg PO QDAY 12/02/22 01/05/23 clonidine 0.1 mg/24 hr weekly 1 patch transdermal WEEKLY 12/03/22 01/05/23 transdermal patch diltiazem HCl 60 mg tablet 60 mg PO QDAY 12/30/22 01/05/23 ondansetron 4 mg disintegrating 4 mg PO Q8H PRN cyclic vomiting 12/30/22 01/05/23 tablet Previous Rx's Medication Instructions Recorded blood sugar diagnostic (Blood #500 ea 09/10/21 Glucose Test strips) blood-glucose meter #1 ea 09/10/21 lancets #500 ea 09/10/21 insulin syringes (disposable) 1 mL #500 ea 01/12/22 diphenhydramine HCl 25 mg capsule 25 mg PO QHS PRN insomnia #30 caps 06/25/22 (EZ Nite Sleep) insulin aspart U-100 100 unit/mL See Rx Instructions subcut TID #60 06/26/22 subcutaneous solution (Novolog mL U-100 Insulin aspart) fluoxetine 20 mg capsule 20 mg PO QDAY #90 caps 08/03/22 famotidine 20 mg tablet 20 mg PO BID #90 tabs 08/10/22 carvedilol 6.25 mg tablet 6.25 mg PO BID #60 tabs 09/07/22 venlafaxine 75 mg capsule,extended 225 mg PO QAM #90 caps 09/07/22 release 24 hr glucagon 3 mg/actuation nasal 3 mg intranasal ONCE PRN 12/02/22 spray (Baqsimi) hypoglycemia #1 ea glucagon 1 mg/0.2 mL subcutaneous 1 mg (0.2 mL) subcut ONCE #0.2 mL 12/03/22 auto-injector (Gvoke HypoPen 1-Pack) lorazepam 1 mg tablet 1 - 2 mg PO QDAY #20 tabs 12/08/22 mirtazapine 15 mg tablet 15 mg PO HS #30 tabs 12/08/22 promethazine 25 mg rectal 25 mg DC Q6HP PRN Nausea And 12/08/22 suppository (Promethegan) Vomiting #12 ea ropinirole 0.25 mg tablet 0.5 mg PO HSP PRN restless leg #30 12/08/22 tabs sucralfate 1 gram tablet 1 gm PO BID #30 tabs 12/08/22 hydrocortisone 2.5 % topical cream 1 applic DC TID PRN hemorrhoids 12/29/22 with perineal applicator #30 grams (Anusol-HC) Allergies Allergy/AdvReac Type Severity Reaction Status Date / Time NSAIDS (Non-Steroidal Allergy Unknown Unknown Verified 01/05/23 06:37 Anti-Inflamma metoclopramide [From Reglan] AdvReac Mild Agitated Verified 01/05/23 06:37 prochlorperazine AdvReac Mild "My whole Verified 01/05/23 06:37 [From Compazine] body freaks out." silver AdvReac Mild dystonic Verified 01/05/23 06:37 IV iodine contrast Allergy Unknown Unknown Uncoded 12/30/22 15:25 Review of Systems ROS ROS Narrative: Narrative: All systems ED: reviewed and negative except as stated. PFSH Narrative Patient History Narrative: Narrative: Medical/Surgical/Family History All Active Problems (Updated 01/06/23 @ 08:29 by Ab Gaming MD) ROSALIO (acute kidney injury) (Acute) Type 1 diabetes mellitus with hyperosmolar hyperglycemic state (HHS) (Acute) Testosterone deficiency (Chronic) Nausea and vomiting (Chronic) GERD (gastroesophageal reflux disease) (Chronic) Other hammer toe(s) (acquired), left foot (Chronic) Hypertension, essential (Chronic) Hyperlipidemia (Chronic) History of neuroleptic malignant syndrome (Chronic) Dehydration (Chronic) Drug-induced nausea and vomiting (Acute) Uncontrolled type 1 diabetes mellitus with diabetic nephropathy, with long-term current use of insulin (Chronic) Cyclic vomiting syndrome (Chronic) Type 1 diabetes mellitus with stage 3 chronic kidney disease and hypertension (Chronic) Marijuana use, continuous (Chronic) CKD (chronic kidney disease) (Acute) Nephrotic range proteinuria (Chronic) Controlled type 1 diabetes mellitus with chronic kidney disease (Chronic) Port-A-Cath in place (Acute) Diabetic gastroparesis associated with type 1 diabetes mellitus (Chronic) Diabetic neuropathy associated with type 1 diabetes mellitus (Chronic) Diabetic retinopathy associated with type 1 diabetes mellitus (Chronic) Anxiety (Chronic) Back pain (Chronic) Physical deconditioning (Chronic) Malnutrition (Chronic) Acute dehydration (Acute) Acute hypokalemia (Acute) QT prolongation (Acute) Dehydration (Acute) No-show for appointment (Acute) Intractable cyclical vomiting with nausea (Acute) Diabetic gastroparesis (Chronic) ROSALIO (acute kidney injury) (Acute) Hyperglycemia (Acute) Dehydration (Acute) Major depressive disorder, recurrent (Chronic) Generalized anxiety disorder (Chronic) Trauma and stressor-related disorder (Chronic) Diabetic gastroparesis (Acute) Nausea & vomiting (Acute) Acute dehydration (Acute) Ketosis (Acute) Uncontrolled diabetes mellitus (Acute) DKA (diabetic ketoacidosis) (Acute) Hyperosmolar hyperglycemic state (HHS) (Acute) Diabetic gastroparesis (Acute) Metabolic alkalosis (Chronic) Stage 2 acute kidney injury (Acute) Hyponatremia (Acute) DKA (diabetic ketoacidosis) (Acute) Has multiple sexual partners (Acute) Hyperosmolar hyperglycemic state (HHS) (Acute) Acute hypokalemia (Acute) ROSALIO (acute kidney injury) (Acute) Nausea & vomiting (Acute) Hypochloremia (Acute) Alkalosis (Acute) Acute renal failure superimposed on stage 3a chronic kidney disease (Acute) Metabolic alkalosis (Acute) Altered mental status (Acute) Depression (Acute) Acute hyperglycemia (Acute) Nausea & vomiting (Acute) Seizures (Acute) Abnormal CT of brain (Acute) Sepsis (Acute) Hyponatremia (Acute) Pneumonia (Acute) Acute renal failure (Acute) Hypokalemia (Acute) Diabetic gastroparesis (Acute) Diabetic gastroparesis (Acute) CKD stage G3b/A3, GFR 30-44 and albumin creatinine ratio >300 mg/g (Acute) Renal failure (ARF), acute on chronic (Acute) ROSALIO (acute kidney injury) (Acute) Acute hypokalemia (Acute) Acidosis (Acute) Acid-base disorder, mixed (Acute) Acute worsening of stage 4 chronic kidney disease (Acute) Type 1 diabetes mellitus with hyperosmolar hyperglycemic state (HHS) (Acute) Acute hypokalemia (Acute) Nausea & vomiting (Acute) Acute respiratory failure with hypoxia (Acute) Type 1 diabetes mellitus with hyperosmolar hyperglycemic state (HHS) (Acute) Anemia associated with stage 4 chronic renal failure (Acute) DKA, type 1, not at goal (Acute) Metabolic acidosis with respiratory alkalosis (Acute) Gastroparesis (Acute) Tetrahydrocannabinol (THC) use disorder, moderate, dependence (Chronic) Binge eating disorder (Chronic) CKD stage 4 due to type 1 diabetes mellitus (Acute) Diabetic keto-acidosis (Acute) Mental health problem (Chronic) Toxic metabolic encephalopathy (Acute) Munchausen syndrome (Acute) Cutaneous abscess of right axilla (Acute) DKA (diabetic ketoacidosis) (Acute) Anemia of chronic renal failure, stage 4 (severe) (Acute) DKA (diabetic ketoacidosis) (Acute) Vomiting (Acute) Acute dehydration (Acute) Hypoglycemia associated with diabetes (Acute) Ankle fracture, left (Acute) Hyperglycemia due to type 1 diabetes mellitus (Acute) Nausea & vomiting (Acute) Acute hyperglycemia (Acute) DKA (diabetic ketoacidosis) (Acute) Hypermagnesemia (Acute) Nausea & vomiting (Acute) Respiratory alkalosis (Acute) DM renal manif type I (Acute) Type I diabetes mellitus with stage 4 chronic kidney disease (Chronic) Respiratory acidosis (Acute) Medical History Abdominal pain, epigastric Abnormal CT of brain Altered mental status Anxiety Back pain Chronic ulcer of left foot Coffee ground emesis Cutaneous abscess of right axilla Depression Diabetes mellitus type I Age 12, With foot ulcer Diabetic gastroparesis associated with type 1 diabetes mellitus Diabetic neuropathy associated with type 1 diabetes mellitus Diabetic peripheral neuropathy Diabetic retinopathy associated with type 1 diabetes mellitus DKA, type 1 Esophageal candidiasis Gastroenteritis Gastroparesis due to DM GERD (gastroesophageal reflux disease) Hallux valgus (acquired), left foot Has multiple sexual partners History of neuroleptic malignant syndrome To compazine (prochlorperazine). Tolerates promethazine without issue Hyperlipidemia Hypertension, essential labile due to unpredictable Rx absorption with gastroparesis and propensity for dehydration Hold captopril if persistent vomiting occurs or bp less than 120/80 stop coreg and nifedipine Continue clonidine patch#1 Labetalol IV PRN Hypokalemia Connie-Byrne tear Malnutrition Marijuana use, continuous Nausea and vomiting Non-pressure chronic ulcer of other part of left foot limited to breakdown of skin Other hammer toe(s) (acquired), left foot Peripheral autonomic neuropathy due to DM Physical deconditioning Seizures Sepsis Tardive dyskinesia due to metoclopramide (Reglan) Testosterone deficiency Surgical History History of hand surgery Finger repair History of toe surgery left hallux Family History Mother Atrial fibrillation Essential hypertension Sister Malignant neoplasm of female breast Maternal Grandfather Malignant neoplasm of colon Recorded 11/12/10 Father Essential hypertension Other Adopted DKA, type 1 Social History Smoking Status: Current some day smoker Alcohol Intake Frequency: former alcohol drinker Substance Use: former substance user Exam Narrative Narrative: Narrative: Vital signs noted General: Awake. Appears chronically ill HEENT: NCAT PERRL EOMI. No conjunctivitis. Membranes moist. Neck: Supple, trachea midline Cardiovascular: RRR. No murmur. No rubs. No gallops. Respiratory: No respiratory distress. Breath sounds equal. Lungs clear. Gastrointestinal: Soft. Diffuse tenderness to palpation no guarding rigidity other peritoneal signs active bowel sounds Musculoskeletal: No pain. Skin: Warm. Dry. No rash Neurologic: Alert and oriented x3 moves all extremities equally and fully, speech is fluent face is symmetric General Limitations: no limitations Course Vital Signs Vital signs: Vital Signs Pulse Rate 76 01/05/23 06:35 Respiratory Rate 17 01/05/23 06:35 Blood Pressure 101/56 01/05/23 06:35 Pulse Oximetry (%) 100 01/05/23 06:35 Oxygen Delivery Method Room Air 01/05/23 06:35 Temperature 99.9 F H 01/06/23 07:07 Pulse Rate 98 H 01/06/23 07:07 Respiratory Rate 24 H 01/06/23 07:07 Blood Pressure 161/76 01/06/23 07:01 Pulse Oximetry (%) 98 01/06/23 07:07 Oxygen Delivery Method Nasal Cannula 01/06/23 07:01 Oxygen Flow Rate (L/min) 2 01/06/23 07:01 [facility] MDM Narrative Medical decision making narrative: Narrative: 37-year-old male with a history of type 1 diabetes very poorly compliant he has had several admissions this year. He states that his pump stopped working 2 days ago. I have personally reviewed his admission in November when he was admitted for hyperglycemia. Patient is actively vomiting on examination. His venous blood gas does not show findings of acidosis. His initial [id number] chemistry showed an undetectable blood glucose with a sodium of 110 this was sent to the lab patient's blood glucose is 1174 his sodium is 118 when corrected is about 134 for his blood glucose. His chloride is undetectable, his bicarb is 19. patient's serum osmolality is 401. Creatinine is 6.0 it looks like his normal creatinine is about 3. Patient's labs are concerning for hyperosmotic hyperglycemic state. He does have an anion gap but is not acidotic. The patient was started on an insulin drip and maintenance fluids. His potassium is 4.1 given that he is not acidotic and his creatinine is 6.0 I did not start him on potassium supplementation. Patient was initially given Zofran for nausea. Patient's EKG did show a sinus rhythm with a rate of 76, there is no evidence of acute ischemia, patient does have a prolonged QTc at 573 for repeat dose of antiemetics he was given Benadryl to try to limit antiemetics with prolonged QTc profile. I have spoke with the hospitalist who agrees to admit the patient. A CT was ordered of the abdomen I have personally reviewed this. No acute abdominal process. No Hydronephrosis. Lab Data 01/06/23 04:30 01/06/23 04:30 Labs: Lab Results 01/05/23 01/05/23 01/05/23 Range/Units 06:47 06:47 06:47 WBC 12.8 H (4.5-11.0) K/mcL RBC 3.62 L (4.63-6.08) M/mcL Hgb 9.4 L (13.7-17.5) g/dL Hct 34.0 L (40.1-51.0) % MCV 93.9 (80.0-100.0) fL MCH 26.0 (26.0-34.0) pg MCHC 27.6 L (31.0-36.0) g/dL RDW 15.7 H (11.5-14.5) % Plt Count 345 (140-440) K/mcL MPV 12.0 (8.8-12.5) fL Immature Gran % (Auto) 0.5 (0.0-0.5) % Neut % (Auto) 82.5 H (38.0-78.0) % Lymph % (Auto) 8.8 L (15.5-49.0) % [place] % (Auto) 8.0 (1.0-12.0) % Eos % (Auto) 0 (0.0-7.0) % Baso % (Auto) 0.2 (0.0-2.0) % Lymph # (Auto) 1.12 L (1.50-4.80) K/mcL [place] # (Auto) 1.02 H (0.10-0.90) K/mcL Eos # (Auto) 0 (0.00-0.70) K/mcL Baso # (Auto) 0.02 (0.00-0.30) K/mcL Immature Gran # 0.07 H (0.00-0.05) K/mcl Absolute Neutrophils 10.54 H (1.80-8.00) K/mcL POC VBG pH 7.34 (7.32-7.42) POC VBG pCO2 at Temp 46.3 (41-51) POC VBG pO2 47 H (25-40) POC VBG HCO3 24.7 (24-28) POC VBG Total CO2 26.0 (25-29) POC Venous O2 Sat 80.0 H (40-70) POC VBG Base Excess -1.0 (-2-2) VBG Lactic Acid 1.8 (0.5-2) Sodium (133-145) mmol/L Potassium (3.3-5.1) mmol/L Chloride (96-108) mmol/L Carbon Dioxide (22-30) mmol/L Anion Gap (8.0-16.0) BUN (6-20) mg/dL Creatinine (0.7-1.2) mg/dL GFR Calculation Glucose (70-105) mg/dL Osmolality (280-300) mOSM/kg Calcium (8.6-10.4) mg/dL Phosphorus (2.5-4.5) mg/dL Magnesium (1.6-2.5) mg/dL Total Bilirubin (0.1-1.0) mg/dL AST (<40) U/L ALT (<40) U/L Alkaline Phosphatase (39-117) U/L Total Protein (5.9-8.4) gm/dL Albumin (3.2-5.2) gm/dL Globulin (2.2-3.7) gm/dL Albumin/Globulin Ratio (1.0-2.3) Beta-Hydroxybutyrate 15.80 H (<0.27) mmol/L 01/05/23 01/05/23 Range/Units 06:47 06:47 WBC (4.5-11.0) K/mcL RBC (4.63-6.08) M/mcL Hgb (13.7-17.5) g/dL Hct (40.1-51.0) % MCV (80.0-100.0) fL MCH (26.0-34.0) pg MCHC (31.0-36.0) g/dL RDW (11.5-14.5) % Plt Count (140-440) K/mcL MPV (8.8-12.5) fL Immature Gran % (Auto) (0.0-0.5) % Neut % (Auto) (38.0-78.0) % Lymph % (Auto) (15.5-49.0) % [place] % (Auto) (1.0-12.0) % Eos % (Auto) (0.0-7.0) % Baso % (Auto) (0.0-2.0) % Lymph # (Auto) (1.50-4.80) K/mcL [place] # (Auto) (0.10-0.90) K/mcL Eos # (Auto) (0.00-0.70) K/mcL Baso # (Auto) (0.00-0.30) K/mcL Immature Gran # (0.00-0.05) K/mcl Absolute Neutrophils (1.80-8.00) K/mcL POC VBG pH (7.32-7.42) POC VBG pCO2 at Temp (41-51) POC VBG pO2 (25-40) POC VBG HCO3 (24-28) POC VBG Total CO2 (25-29) POC Venous O2 Sat (40-70) POC VBG Base Excess (-2-2) VBG Lactic Acid (0.5-2) Sodium 118 L* (133-145) mmol/L Potassium 4.3 (3.3-5.1) mmol/L Chloride < 60 L (96-108) mmol/L Carbon Dioxide 19 L (22-30) mmol/L Anion Gap 39.0 H (8.0-16.0) BUN 98 H (6-20) mg/dL Creatinine 6.0 H* (0.7-1.2) mg/dL GFR Calculation 11 Glucose 1174 H* (70-105) mg/dL Osmolality 401 H (280-300) mOSM/kg Calcium 6.9 L (8.6-10.4) mg/dL Phosphorus 12.2 H* (2.5-4.5) mg/dL Magnesium 4.2 H* (1.6-2.5) mg/dL Total Bilirubin 0.2 (0.1-1.0) mg/dL AST 9 (<40) U/L ALT 10 (<40) U/L Alkaline Phosphatase 189 H (39-117) U/L Total Protein 6.7 (5.9-8.4) gm/dL Albumin 4.0 (3.2-5.2) gm/dL Globulin 2.7 (2.2-3.7) gm/dL Albumin/Globulin Ratio 1.5 (1.0-2.3) Beta-Hydroxybutyrate (<0.27) mmol/L Discharge Plan Patient/Caregiver Discharge Instructions Pt seen by SIGN POSTER/PA only: No Clinical Impression: ROSALIO (acute kidney injury), Type 1 diabetes mellitus with hyperosmolar hyperglycemic state (HHS) Patient Disposition: Xfer As Inpt ([facility]) Condition: Fair Discharge Date/Time: 01/05/23 12:48
[2023-01-05 08:19] LABS: ALT/SGPT 10 U/L (<40); AST/SGOT 9 U/L (<40); Albumin/Globulin Ratio 1.5 (1.0-2.3); Alkaline Phosphatase 189 U/L (39-117); Bilirubin,Total 0.2 mg/dL (0.1-1.0); Blood Urea Nitrogen 98 mg/dL (6-20); Calcium 6.9 mg/dL (8.6-10.4); Carbon Dioxide 19 mmol/L (22-30); Chloride < 60 mmol/L (96-108); Globulin 2.7 gm/dL (2.2-3.7); Glomerular Filtration Rate 11; Glucose 1174 mg/dL (70-105); Phosphorous 12.2 mg/dL (2.5-4.5)
[2023-01-05] MEDS ORDERED: diphenhydrAMINE 50 MG/ML VIAL IV ONE (08:25)
[2023-01-05] MEDS ORDERED: LACTATED RINGERS 1,000 ML IV ONE (09:12)
--- NOTE | 2023-01-05 09:54 | Nephrology Consult Note ---
HPI Date of Consult Consult Date: 01/05/23 Requesting physician: Ab Gaming Primary Care Provider: Flo Peña MD Consult Narrative Patient Information: Note initiated : 01/05/23 at 9:52 am Patient: Mauri Levine 37 y/o M admitted on for High blood sugar. Chief Complaint: [] Mauri Levine is a 37-year-old male with diabetes mellitus type 1, chronic kidney disease stage 4, hypertension brought to the [facility] ED with nausea, vomiting and his pump not working for 2 days. In ED, labs were significant for sodium 118, creatinine 6.0, potassium 4.3, CO2 19, glucose 1174. He was treated with IVF and IV insulin. Chief complaint: Nausea and vomiting Reason for consult: Acute kidney injury cc:: CC: Review of Systems ROS unobtainable: due to mental status PFSH PFSH All Active Problems (Updated 12/30/22 @ 16:48 by Khari Mills MD) Testosterone deficiency (Chronic) Nausea and vomiting (Chronic) GERD (gastroesophageal reflux disease) (Chronic) Other hammer toe(s) (acquired), left foot (Chronic) Hypertension, essential (Chronic) Hyperlipidemia (Chronic) History of neuroleptic malignant syndrome (Chronic) Dehydration (Chronic) Drug-induced nausea and vomiting (Acute) Uncontrolled type 1 diabetes mellitus with diabetic nephropathy, with long-term current use of insulin (Chronic) Cyclic vomiting syndrome (Chronic) Type 1 diabetes mellitus with stage 3 chronic kidney disease and hypertension (Chronic) Marijuana use, continuous (Chronic) CKD (chronic kidney disease) (Acute) Nephrotic range proteinuria (Chronic) Controlled type 1 diabetes mellitus with chronic kidney disease (Chronic) Port-A-Cath in place (Acute) Diabetic gastroparesis associated with type 1 diabetes mellitus (Chronic) Diabetic neuropathy associated with type 1 diabetes mellitus (Chronic) Diabetic retinopathy associated with type 1 diabetes mellitus (Chronic) Anxiety (Chronic) Back pain (Chronic) Physical deconditioning (Chronic) Malnutrition (Chronic) Acute dehydration (Acute) Acute hypokalemia (Acute) QT prolongation (Acute) Dehydration (Acute) No-show for appointment (Acute) Intractable cyclical vomiting with nausea (Acute) Diabetic gastroparesis (Chronic) ROSALIO (acute kidney injury) (Acute) Hyperglycemia (Acute) Dehydration (Acute) Major depressive disorder, recurrent (Chronic) Generalized anxiety disorder (Chronic) Trauma and stressor-related disorder (Chronic) Diabetic gastroparesis (Acute) Nausea & vomiting (Acute) Acute dehydration (Acute) Ketosis (Acute) Uncontrolled diabetes mellitus (Acute) DKA (diabetic ketoacidosis) (Acute) Hyperosmolar hyperglycemic state (HHS) (Acute) Diabetic gastroparesis (Acute) Metabolic alkalosis (Chronic) Stage 2 acute kidney injury (Acute) Hyponatremia (Acute) DKA (diabetic ketoacidosis) (Acute) Has multiple sexual partners (Acute) Hyperosmolar hyperglycemic state (HHS) (Acute) Acute hypokalemia (Acute) ROSALIO (acute kidney injury) (Acute) Nausea & vomiting (Acute) Hypochloremia (Acute) Alkalosis (Acute) Acute renal failure superimposed on stage 3a chronic kidney disease (Acute) Metabolic alkalosis (Acute) Altered mental status (Acute) Depression (Acute) Acute hyperglycemia (Acute) Nausea & vomiting (Acute) Seizures (Acute) Abnormal CT of brain (Acute) Sepsis (Acute) Hyponatremia (Acute) Pneumonia (Acute) Acute renal failure (Acute) Hypokalemia (Acute) Diabetic gastroparesis (Acute) Diabetic gastroparesis (Acute) CKD stage G3b/A3, GFR 30-44 and albumin creatinine ratio >300 mg/g (Acute) Renal failure (ARF), acute on chronic (Acute) ROSALIO (acute kidney injury) (Acute) Acute hypokalemia (Acute) Acidosis (Acute) Acid-base disorder, mixed (Acute) Acute worsening of stage 4 chronic kidney disease (Acute) Type 1 diabetes mellitus with hyperosmolar hyperglycemic state (HHS) (Acute) Acute hypokalemia (Acute) Nausea & vomiting (Acute) Acute respiratory failure with hypoxia (Acute) Type 1 diabetes mellitus with hyperosmolar hyperglycemic state (HHS) (Acute) Anemia associated with stage 4 chronic renal failure (Acute) DKA, type 1, not at goal (Acute) Metabolic acidosis with respiratory alkalosis (Acute) Gastroparesis (Acute) Tetrahydrocannabinol (THC) use disorder, moderate, dependence (Chronic) Binge eating disorder (Chronic) CKD stage 4 due to type 1 diabetes mellitus (Acute) Diabetic keto-acidosis (Acute) Mental health problem (Chronic) Toxic metabolic encephalopathy (Acute) Munchausen syndrome (Acute) Cutaneous abscess of right axilla (Acute) DKA (diabetic ketoacidosis) (Acute) Anemia of chronic renal failure, stage 4 (severe) (Acute) DKA (diabetic ketoacidosis) (Acute) Vomiting (Acute) Acute dehydration (Acute) Hypoglycemia associated with diabetes (Acute) Ankle fracture, left (Acute) Hyperglycemia due to type 1 diabetes mellitus (Acute) Nausea & vomiting (Acute) Acute hyperglycemia (Acute) DKA (diabetic ketoacidosis) (Acute) Hypermagnesemia (Acute) Nausea & vomiting (Acute) Respiratory alkalosis (Acute) DM renal manif type I (Acute) Type I diabetes mellitus with stage 4 chronic kidney disease (Chronic) Respiratory acidosis (Acute) Medical History Abdominal pain, epigastric Abnormal CT of brain Altered mental status Anxiety Back pain Chronic ulcer of left foot Coffee ground emesis Cutaneous abscess of right axilla Depression Diabetes mellitus type I Age 12, With foot ulcer Diabetic gastroparesis associated with type 1 diabetes mellitus Diabetic neuropathy associated with type 1 diabetes mellitus Diabetic peripheral neuropathy Diabetic retinopathy associated with type 1 diabetes mellitus DKA, type 1 Esophageal candidiasis Gastroenteritis Gastroparesis due to DM GERD (gastroesophageal reflux disease) Hallux valgus (acquired), left foot Has multiple sexual partners History of neuroleptic malignant syndrome To compazine (prochlorperazine). Tolerates promethazine without issue Hyperlipidemia Hypertension, essential labile due to unpredictable Rx absorption with gastroparesis and propensity for dehydration Hold captopril if persistent vomiting occurs or bp less than 120/80 stop coreg and nifedipine Continue clonidine patch#1 Labetalol IV PRN Hypokalemia Connie-Byrne tear Malnutrition Marijuana use, continuous Nausea and vomiting Non-pressure chronic ulcer of other part of left foot limited to breakdown of skin Other hammer toe(s) (acquired), left foot Peripheral autonomic neuropathy due to DM Physical deconditioning Seizures Sepsis Tardive dyskinesia due to metoclopramide (Reglan) Testosterone deficiency Surgical History History of hand surgery Finger repair History of toe surgery left hallux Family History Mother Atrial fibrillation Essential hypertension Sister Malignant neoplasm of female breast Maternal Grandfather Malignant neoplasm of colon Recorded 11/12/10 Father Essential hypertension Other Adopted DKA, type 1 Social History adopted: Yes household members: family housing: other details: [place] on his parents property marital status: single occupational status: disabled occupation: On disability since 2016 physical activity: walking smoking status: Current some day smoker alcohol intake frequency: former alcohol drinker substance use type: former substance user seatbelt use: always MEDS/ALLERGIES Home Medications and Allergies Home Medications Medication Instructions Recorded Confirmed Type blood sugar diagnostic (Blood #500 ea 09/10/21 12/30/22 Rx Glucose Test strips) blood-glucose meter #1 ea 09/10/21 12/30/22 Rx lancets #500 ea 09/10/21 12/30/22 Rx insulin syringes (disposable) 1 mL #500 ea 01/12/22 12/30/22 Rx diphenhydramine HCl 25 mg capsule 25 mg PO QHS PRN insomnia #30 caps 06/25/22 12/30/22 Rx (EZ Nite Sleep) insulin aspart U-100 100 unit/mL See Rx Instructions subcut TID #60 06/26/22 12/30/22 Rx subcutaneous solution (Novolog mL U-100 Insulin aspart) fluoxetine 20 mg capsule 20 mg PO QDAY #90 caps 08/03/22 12/30/22 Rx famotidine 20 mg tablet 20 mg PO BID #90 tabs 08/10/22 12/30/22 Rx carvedilol 6.25 mg tablet 6.25 mg PO BID #60 tabs 09/07/22 12/30/22 Rx venlafaxine 75 mg capsule,extended 225 mg PO QAM #90 caps 09/07/22 12/30/22 Rx release 24 hr insulin glargine 100 unit/mL 10 unit subcut HS PRN if insulin 11/19/22 12/30/22 History subcutaneous solution (Lantus pump fail U-100 Insulin) amlodipine 10 mg tablet 10 mg PO QDAY 12/02/22 12/30/22 History glucagon 3 mg/actuation nasal 3 mg intranasal ONCE PRN 12/02/22 12/30/22 Rx spray (Baqsimi) hypoglycemia #1 ea clonidine 0.1 mg/24 hr weekly 1 patch transdermal WEEKLY 12/03/22 12/30/22 History transdermal patch glucagon 1 mg/0.2 mL subcutaneous 1 mg (0.2 mL) subcut ONCE #0.2 mL 12/03/22 12/30/22 Rx auto-injector (Gvoke HypoPen 1-Pack) lorazepam 1 mg tablet 1 - 2 mg PO QDAY #20 tabs 12/08/22 12/30/22 Rx mirtazapine 15 mg tablet 15 mg PO HS #30 tabs 12/08/22 12/30/22 Rx promethazine 25 mg rectal 25 mg NH Q6HP PRN Nausea And 12/08/22 12/30/22 Rx suppository (Promethegan) Vomiting #12 ea ropinirole 0.25 mg tablet 0.5 mg PO HSP PRN restless leg #30 12/08/22 12/30/22 Rx tabs sucralfate 1 gram tablet 1 gm PO BID #30 tabs 12/08/22 12/30/22 Rx hydrocortisone 2.5 % topical cream 1 applic NH TID PRN hemorrhoids 12/29/22 12/30/22 Rx with perineal applicator #30 grams (Anusol-HC) diltiazem HCl 60 mg tablet 60 mg PO QDAY 12/30/22 12/30/22 History ondansetron 4 mg disintegrating 4 mg PO Q8H PRN cyclic vomiting 12/30/22 12/30/22 History tablet Allergies Allergy/AdvReac Type Severity Reaction Status Date / Time NSAIDS (Non-Steroidal Allergy Unknown Unknown Verified 01/05/23 06:37 Anti-Inflamma metoclopramide [From Reglan] AdvReac Mild Agitated Verified 01/05/23 06:37 prochlorperazine AdvReac Mild "My whole Verified 01/05/23 06:37 [From Compazine] body freaks out." silver AdvReac Mild dystonic Verified 01/05/23 06:37 IV iodine contrast Allergy Unknown Unknown Uncoded 12/30/22 15:25 Physical Examination Vital Signs Vital signs: Pulse Resp BP Pulse Ox O2 Del Method 80 28 H 112/58 97 Room Air 01/05/23 08:49 01/05/23 08:49 01/05/23 08:47 01/05/23 08:49 01/05/23 06:35 General Appearance General appearance: chronically ill EENT EENT: mucous membranes dry Neck Neck: no JVD Respiratory Respiratory: clear Cardiovascular Cardiology: no edema, regular rate and regular rhythm Gastrointestinal Gastrointestinal: no tenderness Integumentary Integumentary: no rash Neurologic Neurologic: obtunded Psychiatric Psychiatric: cooperative Results Lab Results 01/05/23 06:47 01/05/23 06:47 Lab results: Most recent lab results Calcium 6.9 mg/dL (8.6-10.4) L 01/05/23 06:47 Phosphorus 12.2 mg/dL (2.5-4.5) H* 01/05/23 06:47 Magnesium 4.2 mg/dL (1.6-2.5) H* 01/05/23 06:47 A/P Assessment and plan (1) Acute worsening of stage 4 chronic kidney disease: Assessment and plan: Mauri Levine is a 37-year-old male with diabetes mellitus type 1, chronic kidney disease stage 4, hypertension brought to the [facility] ED with nausea, vomiting and his pump not working for 2 days. In ED, labs were significant for sodium 118, creatinine 6.0, potassium 4.3, CO2 19, glucose 1174. He was treated with IVF and IV insulin. Nephrology consultation requested for acute kidney injury. Acute kidney injury associated with DKA on chronic kidney disease stage 4 with initial metabolic acidosis and hyponatremia (pseudo), present on arrival. Chronic kidney disease stage 4, followed by Dr. Mills, last visit on 12/30/22. The patient had multiple admissions with a similar presentation. He did not require hemodialysis previously and recovered with IVF and DKA treatment. I informed his mother at the bedside in ED. Previous workup: Urine random total protein/creatinine on 12/30/22: 4,340 mg/g creatinine. Renal US on 08/16/21: Hyperechoic kidneys compatible medical renal disease. Prostate is normal size-volume 28 cc. Recommendations/Plan: Anticipate no hemodialysis need. Avoid NSAIDs, nephrotoxic medications and IV contrast. Monitor BMP and urine output. Status: Acute Time Spent With Patient Time: Total time spent is greater than 50% in coordination of care (as documented) at patient's floor/unit and/or counseling patient:
[2023-01-05] MEDS ORDERED: PROMETHAZINE 25 MG/ML VIAL IV ONE (10:07)
[2023-01-05] MEDS ORDERED: PANTOPRAZOLE 40 MG VIAL IV ONE (10:07)
--- NOTE | 2023-01-05 10:57 | Internal Med History&Physical ---
HPI History of Present Illness Patient information: Note initiated : 01/05/23 at 10:47 am Service Date, if different from initiated Date: [] Patient: Mauri Levine 37 y/o M admitted on for High blood sugar. Chief Complaint: [] History of present illness: Mr. Levine is a 37 year old male with poorly controlled diabetes mellitus 1 on insulin pump, diabetic gastroparesis, noncompliance with treatment, frequent admissions for DKA, CKD stage IV, hypertension, IV drug abuse, polysubstance abuse including meth and fentanyl per patient, marijuana abuse and possible cyclic vomiting presented with persistent nausea, vomiting and generalized weakness. Patient has multiple hospitalizations for DKA and always have same issue of insulin pump malfunction, dehydration, nausea and vomiting. This time patient reports that his pump stopped working for 2 days, he has been trying to give himself insulin but has been unable to keep up with continuous glucose monitoring which has been reading it high. Patient reports some hematemesis in the setting of persistent vomiting. He denies any history of cirrhosis. He reports that whenever he has bouts of vomiting he does have mild hematemesis. He reports no fever, no chills, no dysuria, no shortness of breath, no chest pain. On presentation patient vitals were stable. Blood glucose 1174. Beta- hydroxybutyrate 15. WBC 12.8, hemoglobin 9.4. VBG with pH of 734, HCO3 24. Chemistries showed sodium 118, potassium 4.3, anion gap 39, CO2 19, chloride less than 60. BUN 98, creatinine 6.0 looks like his baseline is about 3-4., phosphorus 12, magnesium 4.2. Patient lab work is concerning for hyperosmolar hyperglycemic state. He does have an anion gap but no acidosis this is likely in the setting of vomiting induced anion gap alkalosis. Patient will be started on insulin drip, IV fluids and will be admitted to ICU with nephrology consult. Review of Systems Const: Reports night sweats; Denies fatigue or headache(s) Eyes: Denies dry eyes ENT: Denies dry mouth or headache(s) Card: Reports pedal edema (little ankle); Denies ch, est pain, dyspnea, dyspnea on exertion, leg edema or lightheadedness Resp: Denies cough, dyspnea or dyspnea on exertion GI: Reports constipation, nausea and vomiting; Denies diarrhea or melena : Denies difficulty urinating, dysuria, flank pain, hematuria, nocturia, urinary frequency, urinary hesitancy, urinary incontinence or urinary urgency Musc: Denies muscle cramps Skin: Skin/Breast: Denies new lesions or rash Neuro: Denies confusion, headache(s), seizure-like activity or tremor(s) Psych: Reports change in appetite (fluctuates); Denies confusion Endo: Denies fatigue Exam General: Awake. Appears chronically ill HEENT: NCAT PERRL EOMI. No conjunctivitis. Membranes moist. Neck: Supple, trachea midline Cardiovascular: RRR. No murmur. No rubs. No gallops. Respiratory: No respiratory distress. Breath sounds equal. Lungs clear. Gastrointestinal: Soft. Diffuse tenderness to palpation no guarding rigidity other peritoneal signs active bowel sounds Musculoskeletal: No pain. Skin: Warm. Dry. No rash Neurologic: Alert and oriented x3 moves all extremities equally and fully, speech is fluent face is symmetric General Limitations: no limitations Assessment and plan DKA/HHS. (h/o DMI with h/o Gastroparesis/Neuropathy): usually triggered by noncompliance and poor self care) patient with anion gap but no acidosis, likely in the setting of volume contraction, vomiting induced anion gap alkalosis Nausea, vomiting, abdominal pain secondary to above with gastroparesis and h/o cyclic vomiting and possibly marijuana hyperemesis Hematemesis, likely in the setting of persistent vomiting. CT scan abdomen pending. No overt abdominal pain. IV Protonix. Sucralfate 4 times daily. Repeat CBC. Acute dehydration/volume depletion Hyponatremia corrected 134 on admission Electrolyte abnormality. Hypochloremia, hypermagnesemia, hyper phosphatemia Acute renal failure on top of CKD stage IV. Follows with Dr. Mills Noncompliance with medical therapy IV drug abuse. Polysubstance abuse. Obtain urine drug screening. Counseled on cessation Marijuana abuse. Possible cannabis hyperemesis syndrome Hypertension. Currently blood pressure stable Anemia. Chronic. Also hematemesis. Will repeat CBC. Anxiety/depression/binge eating disorder: Hold SSRI *Long QT Syndrome: noted on EKG's since 2019. Pt is on SSRI which will be held *GERD: PPI *long-term prognosis guarded if he doesn't become more vigilant in caring for his disease P: -insulin gtt, hold home insulin pump for now -IVF's -Monitor electrolytes and replace -monitor sodium Hold SSRI for prolonged QTc -f/u blood gas, bhb, -UA pending -clear liquids and advance diet as able to gastroparesis diet (low fat, soluble fiber) -Antiemetics that won't prolong QT (Scopolamine,Benzodiazepines) -cont clonidine/BB, Hold ACEI for now, IV prn BP meds - nephrology consult -pt/ot -ppx: Heparin/H2 Critical care time 75 minutes PFSH PFSH All Active Problems (Updated 12/30/22 @ 16:48 by Khari Mills MD) Testosterone deficiency (Chronic) Nausea and vomiting (Chronic) GERD (gastroesophageal reflux disease) (Chronic) Other hammer toe(s) (acquired), left foot (Chronic) Hypertension, essential (Chronic) Hyperlipidemia (Chronic) History of neuroleptic malignant syndrome (Chronic) Dehydration (Chronic) Drug-induced nausea and vomiting (Acute) Uncontrolled type 1 diabetes mellitus with diabetic nephropathy, with long-term current use of insulin (Chronic) Cyclic vomiting syndrome (Chronic) Type 1 diabetes mellitus with stage 3 chronic kidney disease and hypertension (Chronic) Marijuana use, continuous (Chronic) CKD (chronic kidney disease) (Acute) Nephrotic range proteinuria (Chronic) Controlled type 1 diabetes mellitus with chronic kidney disease (Chronic) Port-A-Cath in place (Acute) Diabetic gastroparesis associated with type 1 diabetes mellitus (Chronic) Diabetic neuropathy associated with type 1 diabetes mellitus (Chronic) Diabetic retinopathy associated with type 1 diabetes mellitus (Chronic) Anxiety (Chronic) Back pain (Chronic) Physical deconditioning (Chronic) Malnutrition (Chronic) Acute dehydration (Acute) Acute hypokalemia (Acute) QT prolongation (Acute) Dehydration (Acute) No-show for appointment (Acute) Intractable cyclical vomiting with nausea (Acute) Diabetic gastroparesis (Chronic) ROSALIO (acute kidney injury) (Acute) Hyperglycemia (Acute) Dehydration (Acute) Major depressive disorder, recurrent (Chronic) Generalized anxiety disorder (Chronic) Trauma and stressor-related disorder (Chronic) Diabetic gastroparesis (Acute) Nausea & vomiting (Acute) Acute dehydration (Acute) Ketosis (Acute) Uncontrolled diabetes mellitus (Acute) DKA (diabetic ketoacidosis) (Acute) Hyperosmolar hyperglycemic state (HHS) (Acute) Diabetic gastroparesis (Acute) Metabolic alkalosis (Chronic) Stage 2 acute kidney injury (Acute) Hyponatremia (Acute) DKA (diabetic ketoacidosis) (Acute) Has multiple sexual partners (Acute) Hyperosmolar hyperglycemic state (HHS) (Acute) Acute hypokalemia (Acute) ROSALIO (acute kidney injury) (Acute) Nausea & vomiting (Acute) Hypochloremia (Acute) Alkalosis (Acute) Acute renal failure superimposed on stage 3a chronic kidney disease (Acute) Metabolic alkalosis (Acute) Altered mental status (Acute) Depression (Acute) Acute hyperglycemia (Acute) Nausea & vomiting (Acute) Seizures (Acute) Abnormal CT of brain (Acute) Sepsis (Acute) Hyponatremia (Acute) Pneumonia (Acute) Acute renal failure (Acute) Hypokalemia (Acute) Diabetic gastroparesis (Acute) Diabetic gastroparesis (Acute) CKD stage G3b/A3, GFR 30-44 and albumin creatinine ratio >300 mg/g (Acute) Renal failure (ARF), acute on chronic (Acute) ROSALIO (acute kidney injury) (Acute) Acute hypokalemia (Acute) Acidosis (Acute) Acid-base disorder, mixed (Acute) Acute worsening of stage 4 chronic kidney disease (Acute) Type 1 diabetes mellitus with hyperosmolar hyperglycemic state (HHS) (Acute) Acute hypokalemia (Acute) Nausea & vomiting (Acute) Acute respiratory failure with hypoxia (Acute) Type 1 diabetes mellitus with hyperosmolar hyperglycemic state (HHS) (Acute) Anemia associated with stage 4 chronic renal failure (Acute) DKA, type 1, not at goal (Acute) Metabolic acidosis with respiratory alkalosis (Acute) Gastroparesis (Acute) Tetrahydrocannabinol (THC) use disorder, moderate, dependence (Chronic) Binge eating disorder (Chronic) CKD stage 4 due to type 1 diabetes mellitus (Acute) Diabetic keto-acidosis (Acute) Mental health problem (Chronic) Toxic metabolic encephalopathy (Acute) Munchausen syndrome (Acute) Cutaneous abscess of right axilla (Acute) DKA (diabetic ketoacidosis) (Acute) Anemia of chronic renal failure, stage 4 (severe) (Acute) DKA (diabetic ketoacidosis) (Acute) Vomiting (Acute) Acute dehydration (Acute) Hypoglycemia associated with diabetes (Acute) Ankle fracture, left (Acute) Hyperglycemia due to type 1 diabetes mellitus (Acute) Nausea & vomiting (Acute) Acute hyperglycemia (Acute) DKA (diabetic ketoacidosis) (Acute) Hypermagnesemia (Acute) Nausea & vomiting (Acute) Respiratory alkalosis (Acute) DM renal manif type I (Acute) Type I diabetes mellitus with stage 4 chronic kidney disease (Chronic) Respiratory acidosis (Acute) Medical History Abdominal pain, epigastric Abnormal CT of brain Altered mental status Anxiety Back pain Chronic ulcer of left foot Coffee ground emesis Cutaneous abscess of right axilla Depression Diabetes mellitus type I Age 12, With foot ulcer Diabetic gastroparesis associated with type 1 diabetes mellitus Diabetic neuropathy associated with type 1 diabetes mellitus Diabetic peripheral neuropathy Diabetic retinopathy associated with type 1 diabetes mellitus DKA, type 1 Esophageal candidiasis Gastroenteritis Gastroparesis due to DM GERD (gastroesophageal reflux disease) Hallux valgus (acquired), left foot Has multiple sexual partners History of neuroleptic malignant syndrome To compazine (prochlorperazine). Tolerates promethazine without issue Hyperlipidemia Hypertension, essential labile due to unpredictable Rx absorption with gastroparesis and propensity for dehydration Hold captopril if persistent vomiting occurs or bp less than 120/80 stop coreg and nifedipine Continue clonidine patch#1 Labetalol IV PRN Hypokalemia Connie-Byrne tear Malnutrition Marijuana use, continuous Nausea and vomiting Non-pressure chronic ulcer of other part of left foot limited to breakdown of skin Other hammer toe(s) (acquired), left foot Peripheral autonomic neuropathy due to DM Physical deconditioning Seizures Sepsis Tardive dyskinesia due to metoclopramide (Reglan) Testosterone deficiency Surgical History History of hand surgery Finger repair History of toe surgery left hallux Family History Mother Atrial fibrillation Essential hypertension Sister Malignant neoplasm of female breast Maternal Grandfather Malignant neoplasm of colon Recorded 11/12/10 Father Essential hypertension Other Adopted DKA, type 1 Social History adopted: Yes household members: family housing: other details: 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 marital status: single occupational status: disabled occupation: On disability since 2017 physical activity: walking smoking status: Current some day smoker alcohol intake frequency: former alcohol drinker substance use type: former substance user seatbelt use: always MEDS/ALLERGIES Home Medications and Allergies Home Medications Medication Instructions Recorded Confirmed Type blood sugar diagnostic (Blood #500 ea 09/10/21 12/30/22 Rx Glucose Test strips) blood-glucose meter #1 ea 09/10/21 12/30/22 Rx lancets #500 ea 09/10/21 12/30/22 Rx insulin syringes (disposable) 1 mL #500 ea 01/12/22 12/30/22 Rx diphenhydramine HCl 25 mg capsule 25 mg PO QHS PRN insomnia #30 caps 06/25/22 12/30/22 Rx (EZ Nite Sleep) insulin aspart U-100 100 unit/mL See Rx Instructions subcut TID #60 06/26/22 12/30/22 Rx subcutaneous solution (Novolog mL U-100 Insulin aspart) fluoxetine 20 mg capsule 20 mg PO QDAY #90 caps 08/03/22 12/30/22 Rx famotidine 20 mg tablet 20 mg PO BID #90 tabs 08/10/22 12/30/22 Rx carvedilol 6.25 mg tablet 6.25 mg PO BID #60 tabs 09/07/22 12/30/22 Rx venlafaxine 75 mg capsule,extended 225 mg PO QAM #90 caps 09/07/22 12/30/22 Rx release 24 hr insulin glargine 100 unit/mL 10 unit subcut HS PRN if insulin 11/19/22 12/30/22 History subcutaneous solution (Lantus pump fail U-100 Insulin) amlodipine 10 mg tablet 10 mg PO QDAY 12/02/22 12/30/22 History glucagon 3 mg/actuation nasal 3 mg intranasal ONCE PRN 12/02/22 12/30/22 Rx spray (Baqsimi) hypoglycemia #1 ea clonidine 0.1 mg/24 hr weekly 1 patch transdermal WEEKLY 12/03/22 12/30/22 History transdermal patch glucagon 1 mg/0.2 mL subcutaneous 1 mg (0.2 mL) subcut ONCE #0.2 mL 12/03/22 12/30/22 Rx auto-injector (Gvoke HypoPen 1-Pack) lorazepam 1 mg tablet 1 - 2 mg PO QDAY #20 tabs 12/08/22 12/30/22 Rx mirtazapine 15 mg tablet 15 mg PO HS #30 tabs 12/08/22 12/30/22 Rx promethazine 25 mg rectal 25 mg PA Q6HP PRN Nausea And 12/08/22 12/30/22 Rx suppository (Promethegan) Vomiting #12 ea ropinirole 0.25 mg tablet 0.5 mg PO HSP PRN restless leg #30 12/08/22 12/30/22 Rx tabs sucralfate 1 gram tablet 1 gm PO BID #30 tabs 12/08/22 12/30/22 Rx hydrocortisone 2.5 % topical cream 1 applic PA TID PRN hemorrhoids 12/29/22 12/30/22 Rx with perineal applicator #30 grams (Anusol-HC) diltiazem HCl 60 mg tablet 60 mg PO QDAY 12/30/22 12/30/22 History ondansetron 4 mg disintegrating 4 mg PO Q8H PRN cyclic vomiting 12/30/22 12/30/22 History tablet Allergies Allergy/AdvReac Type Severity Reaction Status Date / Time NSAIDS (Non-Steroidal Allergy Unknown Unknown Verified 01/05/23 06:37 Anti-Inflamma metoclopramide [From Reglan] AdvReac Mild Agitated Verified 01/05/23 06:37 prochlorperazine AdvReac Mild "My whole Verified 01/05/23 06:37 [From Compazine] body freaks out." silver AdvReac Mild dystonic Verified 01/05/23 06:37 IV iodine contrast Allergy Unknown Unknown Uncoded 12/30/22 15:25 EXAM Constitutional Vitals: Pulse Resp BP Pulse Ox O2 Del Method 93 H 13 117/65 96 Room Air 01/05/23 10:31 01/05/23 10:31 01/05/23 10:31 01/05/23 10:31 01/05/23 06:35 DATA Data Completed and Pending Labs: Labs from last 24 hours 01/05/23 01/05/23 01/05/23 06:47 06:47 06:47 WBC RBC Hgb Hct MCV MCH MCHC RDW Plt Count MPV Immature Gran % (Auto) Neut % (Auto) Lymph % (Auto) Hardeman % (Auto) Eos % (Auto) Baso % (Auto) Lymph # (Auto) Hardeman # (Auto) Eos # (Auto) Baso # (Auto) Immature Gran # Absolute Neutrophils POC VBG pH POC VBG pCO2 at Temp POC VBG pO2 POC VBG HCO3 POC VBG Total CO2 POC Venous O2 Sat POC VBG Base Excess VBG Lactic Acid Sodium 118 L* Potassium 4.3 Chloride < 60 L Carbon Dioxide 19 L Anion Gap 39.0 H BUN 98 H Creatinine 6.0 H* GFR Calculation 11 Glucose 1174 H* Osmolality 401 H Calcium 6.9 L Phosphorus 12.2 H* Magnesium 4.2 H* Total Bilirubin 0.2 AST 9 ALT 10 Alkaline Phosphatase 189 H Total Protein 6.7 Albumin 4.0 Globulin 2.7 Albumin/Globulin Ratio 1.5 Beta-Hydroxybutyrate 15.80 H 01/05/23 01/05/23 06:47 06:47 WBC 12.8 H RBC 3.62 L Hgb 9.4 L Hct 34.0 L MCV 93.9 MCH 26.0 MCHC 27.6 L RDW 15.7 H Plt Count 345 MPV 12.0 Immature Gran % (Auto) 0.5 Neut % (Auto) 82.5 H Lymph % (Auto) 8.8 L Hardeman % (Auto) 8.0 Eos % (Auto) 0 Baso % (Auto) 0.2 Lymph # (Auto) 1.12 L Hardeman # (Auto) 1.02 H Eos # (Auto) 0 Baso # (Auto) 0.02 Immature Gran # 0.07 H Absolute Neutrophils 10.54 H POC VBG pH 7.34 POC VBG pCO2 at Temp 46.3 POC VBG pO2 47 H POC VBG HCO3 24.7 POC VBG Total CO2 26.0 POC Venous O2 Sat 80.0 H POC VBG Base Excess -1.0 VBG Lactic Acid 1.8 Sodium Potassium Chloride Carbon Dioxide Anion Gap BUN Creatinine GFR Calculation Glucose Osmolality Calcium Phosphorus Magnesium Total Bilirubin AST ALT Alkaline Phosphatase Total Protein Albumin Globulin Albumin/Globulin Ratio Beta-Hydroxybutyrate A/P Time Spent With Patient Time: Total time spent is greater than 50% in coordination of care (as documented) at patient's floor/unit and/or counseling patient:
[2023-01-05] MEDS ORDERED: FAMOTIDINE/PF 20 MG/2 ML VIAL IV SCH (11:20)
--- NOTE | 2023-01-05 11:34 | Cat Scan Report ---
History: Acute kidney injury, nausea and vomiting, hyperglycemia TECHNIQUE: The abdomen was imaged without contrast in axial plane at 2.5 mm intervals. Sagittal and coronal reformats were created. The radiation exposure was limited using dose reduction technology. FINDINGS: The lung bases are clear. Liver is normal in size. There is mild generalized fatty infiltration. There are several small calcified stones layering posteriorly in the neck of the gallbladder. The wall does not appear thickened or inflamed. The bile ducts are nondilated. The gallstones are unchanged from the prior CT done on 07/23/22. Graft no abnormality seen within the pancreas, spleen or adrenals. Kidneys are normal in size shape and contour. There is no hydronephrosis, cyst or mass effect or parenchymal scarring in either kidney. There was mild hydronephrosis in right kidney and the prior CT which has since resolved. Urinary bladder is normally distended with unopacified urine. The wall is smooth and there is no intraluminal filling defect. No abnormality seen in the prostate or seminal vesicles. Aorta is normal in caliber. There is atherosclerotic plaque and branches of the internal iliac arteries bilaterally but sparing of the aorta. Patient has a nerve stimulator with electrodes along the anterior wall of the stomach. The power pack is in the left anterior abdominal wall. The stomach is normally distended with fluid. The small intestine and large bowel are normal. There is fecal impaction in the rectum. IMPRESSION: Anatomically normal kidneys. Chronic cholelithiasis No acute abnormality Dr. Gaming was called with the report Interpreted and Authenticated by: Az Interiano 01/05/23
[2023-01-05] MEDS ORDERED: INSULIN REGULAR, HUMAN 50 UNIT in 0.9 % SODIUM CHLORIDE 99.5 ML IV SCH ×4 (12:15→16:31)
[2023-01-05] MEDS ORDERED: rOPINIRole 0.25 MG TABLET PO PRN (13:05)
[2023-01-05] MEDS: 0.9 % SODIUM CHLORIDE 10 ML SYRINGE IV SCH ×2 (13:11→21:36)
[2023-01-05] MEDS: 0.9 % SODIUM CHLORIDE 1,000 ML IV SCH ×3 (13:11→21:02)
[2023-01-05] MEDS ORDERED: LORazepam 1 MG TABLET PO PRN (13:16)
[2023-01-05] MEDS ORDERED: HYDROCORTISONE ACETATE 25 MG SUPP.RECT PR PRN (13:16)
[2023-01-05] MEDS ORDERED: PROMETHAZINE 25 MG SUPP.RECT PR PRN (13:17)
[2023-01-05] MEDS ORDERED: DEXTROSE 50% 50 ML SYRINGE IV PRN (13:25)
[2023-01-05] MEDS ORDERED: LORazepam 2 MG/ML VIAL IV PRN (14:25)
[2023-01-05] MEDS ORDERED: SCOPOLAMINE 1 PATCH PATCH TOPICAL SCH (14:30)
[2023-01-05 14:41] LABS: ABG Methemoglobin 0.2 % (0.4-1.5); Total Hemoglobin 10.3 gm/Dl (13.5-16.5); VBG Base Excess 14 (-2-3); VBG HCO3 38.6 mmol/L (24.0-28.0); VBG PH 7.51 U (7.32-7.42); VBG Total CO2 40.2 mmol/L (25.0-29.0)
[2023-01-05] MEDS: METOCLOPRAMIDE 10 MG/2 ML VIAL IV PRN (14:48)
[2023-01-05] MEDS: SUCRALFATE 1 GM TABLET PO SCH ×3 (14:48→21:35)
[2023-01-05 14:58] LABS: Appearance,Urine HAZY (Clear); Bilirubin,Urine Negative (Negative); Color,Urine YELLOW; Culture Indicated,Urine No; Glucose,Urine (UA) >=500 mg/dL (Negative); Ketones,Urine 5 mg/dL (Negative); Leukocyte Esterase,Urine Negative /uL (Negative); Mucus,Urine FEW /hpf; Nitrate,Urine Negative (Negative); Protein,Urine 100 mg/dL (Negative); Specific Gravity,Urine 1.018 (1.000-1.035); Urine Blood 0.03 mg/dL (Negative); Urine RBC 0 /hpf (0-3); Urine Squamous Epithelial Cell 0 /hpf (0-4); Urine WBC 5 /hpf (0-4); Urobilinogen,Urine Negative
[2023-01-05 15:03] LABS: Amphetamine Screen,Urine None detected; Barbiturate Screen,Urine None detected; Benzodiazepines Screen,Urine None detected; Cannabinoid Screen,Urine None detected; Cocaine Screen,Urine None detected; Opiate Screen,Urine None detected; Oxycodone, Urine Screen None detected; Phencyclidine Screen,Urine None detected
[2023-01-05] MEDS ORDERED: CALCIUM GLUCONATE 13.95 MEQ in DEXTROSE 5% IN WATER 50 ML IV ONE (15:05)
[2023-01-05 15:36] LABS: ALT/SGPT 10 U/L (<40); AST/SGOT 14 U/L (<40); Albumin/Globulin Ratio 1.6 (1.0-2.3); Alkaline Phosphatase 177 U/L (39-117); Bilirubin,Direct < 0.2 mg/dL (0-0.3); Bilirubin,Total 0.2 mg/dL (0.1-1.0); Blood Urea Nitrogen 99 mg/dL (6-20); Calcium 6.8 mg/dL (8.6-10.4); Carbon Dioxide 35 mmol/L (22-30); Chloride 66 mmol/L (96-108); Globulin 2.5 gm/dL (2.2-3.7); Glomerular Filtration Rate 10; Glucose 1005 mg/dL (70-105); Lactate Dehydrogenase 244 U/L (135-225); Phosphorous 6.8 mg/dL (2.5-4.5); Triglycerides 129 mg/dL (<150); Uric Acid 13.7 mg/dL (2.5-8.0)
[2023-01-05] MEDS ORDERED: POTASSIUM CHLORIDE 60 MEQ in DEXTROSE 5% IN WATER 500 ML IV ONE (16:11)
[2023-01-05] MEDS: INSULIN REGULAR, HUMAN 50 UNIT in 0.9 % SODIUM CHLORIDE 99.5 ML IV SCH (16:41)
[2023-01-05] MEDS ORDERED: INSULIN REGULAR, HUMAN 1 UNIT/0.01 ML UNIT IV ONE ×2 (16:46→17:50)
[2023-01-05 16:58] LABS: ABG Methemoglobin 0.3 % (0.4-1.5); Total Hemoglobin 10.3 gm/Dl (13.5-16.5); VBG Base Excess 15 (-2-3); VBG HCO3 37.4 mmol/L (24.0-28.0); VBG Oxygen Saturation 87.3 % (40.0-70.0); VBG PCO2 36.9 mmHg (41.0-51.0); VBG PH 7.62 U (7.32-7.42); VBG PO2 113.8 mmHg (25.0-40.0); VBG Total CO2 38.6 mmol/L (25.0-29.0)
[2023-01-05] MEDS: PANTOPRAZOLE 40 MG VIAL IV SCH (17:16)
[2023-01-05] MEDS: PROMETHAZINE 25 MG/ML VIAL IV PRN ×2 (17:23→22:15)
[2023-01-05 17:33] LABS: Blood Urea Nitrogen 99 mg/dL (6-20); Carbon Dioxide 35 mmol/L (22-30); Chloride 69 mmol/L (96-108); Glomerular Filtration Rate 11; Glucose 769 mg/dL (70-105)
[2023-01-05] MEDS ORDERED: INSULIN REGULAR, HUMAN 1 UNIT/0.01 ML UNIT ONE ×2 (17:56→21:03)
[2023-01-05] MEDS ORDERED: SUCRALFATE 1 GM TABLET PO SCH (21:00)
[2023-01-05] MEDS: ONDANSETRON 4 MG/2 ML VIAL IV PRN (21:17)
[2023-01-05 21:45] LABS: ABG Methemoglobin 0.1 % (0.4-1.5); Total Hemoglobin 11.1 gm/Dl (13.5-16.5); VBG Base Excess 22 (-2-3); VBG HCO3 42.6 mmol/L (24.0-28.0); VBG Oxygen Saturation 83.8 % (40.0-70.0); VBG PCO2 32.5 mmHg (41.0-51.0); VBG PH 7.74 U (7.32-7.42); VBG PO2 140.4 mmHg (25.0-40.0); VBG Total CO2 43.6 mmol/L (25.0-29.0)
[2023-01-05 21:46] LABS: Blood Urea Nitrogen 92 mg/dL (6-20); Carbon Dioxide 36 mmol/L (22-30); Chloride 74 mmol/L (96-108); Glomerular Filtration Rate 11; Glucose 450 mg/dL (70-105)
[2023-01-05] MEDS ORDERED: CALCIUM GLUCONATE 4.65 MEQ/10 ML VIAL ONE (22:00)
[2023-01-05] MEDS: CALCIUM GLUCONATE 13.95 MEQ in DEXTROSE 5% IN WATER 50 ML IV PRN (22:14)
[2023-01-06 00:51] LABS: ABG Methemoglobin 0 % (0.4-1.5); VBG Base Excess 17 (-2-3); VBG HCO3 42.3 mmol/L (24.0-28.0); VBG Oxygen Saturation 90.9 % (40.0-70.0); VBG PCO2 53.8 mmHg (41.0-51.0); VBG PH 7.51 U (7.32-7.42); VBG PO2 95.1 mmHg (25.0-40.0); VBG Total CO2 43.9 mmol/L (25.0-29.0)
[2023-01-06] MEDS: DEXTROSE 5%-1/2NS 1,000 ML IV SCH ×4 (01:08→15:14)
[2023-01-06] MEDS: 0.9 % SODIUM CHLORIDE 1,000 ML IV SCH ×4 (01:09→19:09)
[2023-01-06 01:25] LABS: Blood Urea Nitrogen 87 mg/dL (6-20); Carbon Dioxide 42 mmol/L (22-30); Chloride 82 mmol/L (96-108); Glomerular Filtration Rate 12; Glucose 209 mg/dL (70-105)
[2023-01-06] MEDS ORDERED: hydrALAZINE 20 MG/ML VIAL ONE (01:25)
[2023-01-06] MEDS: hydrALAZINE 20 MG/ML VIAL IV PRN ×2 (01:28→12:53)
[2023-01-06] MEDS: METOCLOPRAMIDE 10 MG/2 ML VIAL IV PRN ×2 (01:43→09:00)
[2023-01-06] MEDS: CALCIUM GLUCONATE 13.95 MEQ in DEXTROSE 5% IN WATER 50 ML IV PRN (04:57)
[2023-01-06] MEDS: 0.9 % SODIUM CHLORIDE 10 ML SYRINGE IV SCH ×3 (04:57→22:11)
[2023-01-06] MEDS: INSULIN REGULAR, HUMAN 50 UNIT in 0.9 % SODIUM CHLORIDE 99.5 ML IV SCH ×2 (05:05→14:58)
[2023-01-06 05:16] LABS: Basophils # (Auto) 0.04 K/mcL (0.00-0.30); Basophils % (Auto) 0.2 % (0.0-2.0); Eosinophils # (Auto) 0 K/mcL (0.00-0.70); Eosinophils % (Auto) 0 % (0.0-7.0); Hematocrit 32.1 % (40.1-51.0); Hemoglobin 10.6 g/dL (13.7-17.5); Lymphocytes # (Auto) 1.43 K/mcL (1.50-4.80); Lymphocytes % (Auto) 6.6 % (15.5-49.0); Mean Cell Volume 76.8 fL (80.0-100.0); Mean Platelet Volume 10.5 fL (8.8-12.5); Monocytes # (Auto) 1.39 K/mcL (0.10-0.90); Monocytes % (Auto) 6.4 % (1.0-12.0); Neutrophils % (Auto) 86.2 % (38.0-78.0); Platelet Count 353 K/mcL (140-440); RBC 4.18 M/mcL (4.63-6.08); Red Cell Distribution Width 15.6 % (11.5-14.5); WBC 21.8 K/mcL (4.5-11.0)
[2023-01-06 05:17] LABS: ABG Methemoglobin 0.1 % (0.4-1.5); Total Hemoglobin 11.9 gm/Dl (13.5-16.5); VBG Base Excess 15 (-2-3); VBG HCO3 39.9 mmol/L (24.0-28.0); VBG Oxygen Saturation 87.2 % (40.0-70.0); VBG PCO2 48.5 mmHg (41.0-51.0); VBG PH 7.53 U (7.32-7.42); VBG PO2 90.2 mmHg (25.0-40.0); VBG Total CO2 41.4 mmol/L (25.0-29.0)
[2023-01-06] MEDS ORDERED: INSULIN REGULAR, HUMAN 50 UNIT in 0.9 % SODIUM CHLORIDE 99.5 ML IV SCH (05:30)
[2023-01-06 05:58] LABS: Blood Urea Nitrogen 82 mg/dL (6-20); Carbon Dioxide 39 mmol/L (22-30); Chloride 87 mmol/L (96-108); Glomerular Filtration Rate 12; Glucose 163 mg/dL (70-105)
[2023-01-06] MEDS: ONDANSETRON 4 MG/2 ML VIAL IV PRN ×3 (05:59→18:50)
--- NOTE | 2023-01-06 06:20 | Nephrology Progress Note ---
SUBJECTIVE Subjective Patient information: Note initiated : 01/06/23 at 6:15 am Patient: Mauri Levine 37 y/o M admitted on 01/05/23 for High blood sugar. Chief Complaint: Nausea Pertinent ROS: Mental status improved Persistent nausea Mcknight catheter with clear urine Constitutional Vitals: Vital Signs Temp Pulse Resp BP Pulse Ox O2 Del Method O2 Flow Rate 99.7 F H 107 H 24 H 155/65 99 Nasal Cannula 2 01/06/23 06:02 01/06/23 06:02 01/06/23 06:02 01/06/23 06:02 01/06/23 06:02 01/06/23 06:02 01/06/23 05:01 Period Temp Pulse Resp BP Sys/Menard Pulse Ox O2 Del Method O2 Flow Rate Last 24 Hr 97.7 F-99.9 F 75-107 13-31 96-177/46-92 89-100 Nasal Cannula- Room Air 2-2 Intake and Output 01/05/23 01/06/23 01/06/23 19:59 03:59 11:59 Intake Total 3227 1281 85 Output Total 1340 940 850 Balance 1887 341 -765 Weight 156 lb 12.8 oz Intake & Output: Intake & Output 01/05/23 01/06/23 01/06/23 19:59 03:59 11:59 Intake Total 3227 1281 85 Output Total 1340 940 850 Balance 1887 341 -765 Weight 156 lb 12.8 oz Intake: IV 3227 1281 85 Sodium Chloride 0.9% 1,000 ml @ 2000 618 150 mls/hr IV .[id number] [facility] Rx#: [id number] Calcium Gluconate 13.95 Meq In 80 80 80 Dextrose 5% in Water 50 ml @ 100 mls/hr IV Q6HP PRN Rx#: [id number] HumuLIN R 50 UNIT In Sodium 147 53 5 Chloride 0.9% 99.5 ml @ 1 UNIT/ HR 2 mls/hr IV CONT [facility] Rx#: [id number] Lactated Ringers 1,000 ml @ 1000 Wide Open IV BOLUS ONE Rx#: [id number] Potassium Chloride 60 Meq In 530 Dextrose 5% in Water 500 ml @ 130 mls/hr IV ONCE ONE Rx#: [id number] Oral 0 Output: Urine Catheter Amount 785 940 850 Void Amount 230 Stool 200 Emesis 125 Other: Urine Appearance Clear Clear Clear Uretheral (Mcknight) Clear Clear Urine Color Yellow Yellow Yellow Uretheral (Mcknight) Yellow Yellow Pale Pale Urine Odor Normal Stool Size Moderate Stool Color Brown Yellow Stool Consistency Soft Liquid Loose # Bowel Movements 2 # of times incontinent of 1 Bowels General appearance: cooperative and no acute distress Head Head exam: Present normal inspection Eye Eye exam: Present normal appearance ENT ENT exam: Present mucous membranes moist Respiratory Respiratory exam: Absent respiratory distress Cardiovascular Cardiovascular exam: Present normal rate and rhythm GI/Abdominal GI/Abdominal exam: Present soft; Absent tenderness Extremities Exam Extremities exam: Absent joint swelling or pedal edema Neurological Exam Neurological exam: Present alert Psychiatric Psychiatric exam: Present normal affect and normal mood Skin Skin exam: Present warm; Absent rash A/P Assessment and plan (1) Acute worsening of stage 4 chronic kidney disease: Assessment and plan: Mauri Levine is a 37-year-old male with diabetes mellitus type 1, chronic kidney disease stage 4, hypertension brought to the [facility] ED with nausea, vomiting and his pump not working for 2 days. In ED, labs were significant for sodium 118, creatinine 6.0, potassium 4.3, CO2 19, glucose 1174. He was treated with IVF and IV insulin. Nephrology consultation requested for acute kidney injury. Acute kidney injury associated with DKA on chronic kidney disease stage 4 with initial metabolic acidosis and hyponatremia (pseudo), present on arrival. Chronic kidney disease stage 4, followed by Dr. Mills, last visit on 12/30/22. The patient had multiple admissions with a similar presentation. He did not require hemodialysis previously and recovered with IVF and DKA treatment. I informed his mother at the bedside in ED. Previous workup: Urine random total protein/creatinine on 12/30/22: 4,340 mg/g creatinine. Renal US on 08/16/21: Hyperechoic kidneys compatible medical renal disease. Prostate is normal size-volume 28 cc. Workup: CT Abdomen and Pelvis on 01/05/23: Anatomically normal kidneys. Chronic cholelithiasis. No acute abnormality. Urinalysis on 01/05/23: Yellow, hazy, pH 5.0, SG 1.018, protein 100, blood 0.03, leukocyte esterase negative. Progress: Serum creatinine changed from a peak of 6.3 to 5.5 in the past 24 hours. Baseline serum creatinine: 3.1-4.7 (eGFR 15-17) in November 2022. Urine output: 2,575 ml reported in the past 24 hours. Metabolic alkalosis, improved. Hyponatremia, resolved. Hypokalemia, being replaced. Recommendations/Plan: Anticipate slow improvement of kidney function and no hemodialysis need. Avoid NSAIDs, nephrotoxic medications and IV contrast. Monitor BMP and urine output. Status: Acute Time Spent With Patient Time: Total time spent is greater than 50% in coordination of care (as documented) at patient's floor/unit and/or counseling patient:
[2023-01-06] MEDS ORDERED: POTASSIUM CHLORIDE 40 MEQ in DEXTROSE 5% IN WATER 500 ML IV ONE ×2 (08:04→13:30)
[2023-01-06] MEDS: PANTOPRAZOLE 40 MG VIAL IV SCH ×2 (08:55→16:32)
[2023-01-06] MEDS: SUCRALFATE 1 GM TABLET PO SCH ×4 (09:01→20:39)
--- NOTE | 2023-01-06 09:14 | XRay Report ---
HISTORY: Vomiting, hyperglycemia FINDINGS: There are subtle alveolar opacities scattered throughout the left lung, which are new since 09/13/22. No lobar consolidation is present. The right lung is clear. There is no pleural effusion. No adenopathy is detected. The heart size is normal. There is a Port-A-Cath placed into the superior vena cava. The right subclavian vein. IMPRESSION: Mild diffuse infiltrates in the left lung Interpreted and Authenticated by: Az Interiano 01/06/23
[2023-01-06 09:36] LABS: ALT/SGPT 11 U/L (<40); AST/SGOT 17 U/L (<40); Albumin 3.8 gm/dL (3.2-5.2); Albumin/Globulin Ratio 1.5 (1.0-2.3); Alkaline Phosphatase 157 U/L (39-117); Bilirubin,Total 0.2 mg/dL (0.1-1.0); Blood Urea Nitrogen 76 mg/dL (6-20); Calcium 8.9 mg/dL (8.6-10.4); Carbon Dioxide 40 mmol/L (22-30); Chloride 90 mmol/L (96-108); Globulin 2.5 gm/dL (2.2-3.7); Glomerular Filtration Rate 13; Glucose 155 mg/dL (70-105)
[2023-01-06] MEDS: AMPICILLIN SODIUM/SULBACTAM NA 1.5 GM in 0.9 % SODIUM CHLORIDE 50 ML IV SCH ×2 (11:31→21:30)
--- NOTE | 2023-01-06 14:00 | Internal Med Progress Note ---
SUBJECTIVE Subjective Patient information: Note initiated : 01/06/23 at 1:51 pm Service Date, if different from initiated Date: [] Patient: Mauri Levine 37 y/o M admitted on 01/05/23 for High blood sugar. Chief Complaint: [] Additional PMFSH (Level 3 Only): Mr. Levine is a 37 year old male with poorly controlled diabetes mellitus 1 on insulin pump, diabetic gastroparesis, noncompliance with treatment, frequent admissions for DKA, CKD stage IV, hypertension, IV drug abuse, polysubstance abuse including meth and fentanyl per patient, marijuana abuse and possible cyclic vomiting presented with persistent nausea, vomiting and generalized weakn ess. Patient has multiple hospitalizations for DKA and always have same issue of insulin pump malfunction, dehydration, nausea and vomiting. This time patient reports that his pump stopped working for 2 days, he has been trying to give himself insulin but has been unable to keep up with continuous glucose monitoring which has been reading it high. Patient reports some hematemesis in the setting of persistent vomiting. He denies any history of cirrhosis. He reports that whenever he has bouts of vomiting he does have mild hematemesis. He reports no fever, no chills, no dysuria, no shortness of breath, no chest pain. On presentation patient vitals were stable. Blood glucose 1174. Beta- hydroxybutyrate 15. WBC 12.8, hemoglobin 9.4. VBG with pH of 734, HCO3 24. Chemistries showed sodium 118, potassium 4.3, anion gap 39, CO2 19, chloride less than 60. BUN 98, creatinine 6.0 looks like his baseline is about 3-4., phosphorus 12, magnesium 4.2. Patient lab work is concerning for hyperosmolar hyperglycemic state. He does have an anion gap but no acidosis this is likely in the setting of vomiting induced anion gap alkalosis. Patient will be started on insulin drip, IV fluids and will be admitted to ICU with nephrology consult. 01/06. Mental status improving, some nausea no vomiting, no diarrhea overnight. low-grade fever and leukocytosis worsening. Blood glucose improved to 163. Patient on IV insulin drip, his mother will be bringing his insulin pump. Serum creatinine peaked to 6.3 and down to 5.5 in past 24 hours. Baseline serum creatinine 3.1-4.7 in November 2022 patient had good urine output of 2.5 L in past 24 hours. Metabolic alkalosis improving. Hyponatremia resolved. He has hypokalemia which is being replaced. PCR positive for toxigenic C. difficile, GDH positive. Will obtain chest x-ray Review of Systems Patient reports some nausea, diarrhea is improving no vomiting. 14 point review of system completed and was negative except mentioned above Exam General: Resting in bed, mentation improving, no acute distress HEENT: NCAT PERRL EOMI. No conjunctivitis. Membranes moist. Neck: Supple, trachea midline Cardiovascular: RRR. No murmur. No rubs. No gallops. Respiratory: No respiratory distress. Breath sounds equal. Lungs clear. Gastrointestinal: Soft. Nontender, bowel sounds active Musculoskeletal: No pain. Skin: Warm. Dry. No rash Neurologic: Resting in bed, mental status improving Assessment and plan DKA/HHS. (h/o DMI with h/o Gastroparesis/Neuropathy): usually triggered by noncompliance and poor self care) patient with anion gap but no acidosis, likely in the setting of volume contraction, vomiting induced anion gap alkalosis C. difficile diarrhea. Patient with diarrhea, leukocytosis, stool GDH positive, toxin negative however PCR is positive. Will treat with vancomycin 125 mg 4 times daily also as patient is receiving IV antibiotic for pneumonia. contact precautions Suspect aspiration pneumonia. Since patient was vomiting. CXR with left sided diffuse infiltrate. We will start patient on IV Unasyn 1.5 g every 12 hours renally dosed per pharmacy. Nausea, vomiting, abdominal pain secondary to above with gastroparesis and h/o cyclic vomiting and possibly marijuana hyperemesis Hematemesis, likely in the setting of persistent vomiting. CT scan abdomen and pelvis without any acute findings. IV Protonix. Sucralfate 4 times daily. Monitor CBC Acute dehydration/volume depletion ROSALIO on CKD stage IV. Follows up with Dr. Mills Serum creatinine peaked to 6.3 and now down to 5.0 Baseline serum creatinine: 3.1-4.7 (eGFR 15-17) in November 2022. Urine output> 2,500 ml reported in the past 24 hours. Metabolic alkalosis, improved. Hyponatremia, resolved. Hypokalemia, being replaced. Hyponatremia resolved Electrolyte abnormality. Hypochloremia, hypermagnesemia, hyper phosphatemia Noncompliance with medical therapy IV drug abuse. Polysubstance abuse. Counseled on cessation. Urine toxicology negative Marijuana abuse. Possible cannabis hyperemesis syndrome Hypertension. Currently blood pressure stable Anemia. Chronic. Also hematemesis. H&H stable Anxiety/depression/binge eating disorder: Resume SSRI *Long QT Syndrome: noted on EKG's since 2019. Pt is on SSRI which will not be resumed *GERD: PPI *long-term prognosis guarded if he doesn't become more vigilant in caring for his disease P: -Blood glucose improved to 160s. Continue IV insulin drip, mother is bringing insulin pump which will be resumed -IVF's -Monitor electrolytes and replace -monitor sodium -advance diet as able to gastroparesis diet (low fat, soluble fiber) -Antiemetics that won't prolong QT (Scopolamine,Benzodiazepines) -Resume antihypertensives as blood pressure is running high, IV labetalol - nephrology consult appreciated -pt/ot -ppx: PPI Critical care time 50 minutes Constitutional Vitals: Vital Signs Temp Pulse Resp BP Pulse Ox O2 Del Method O2 Flow Rate 100.2 F H 98 H 20 198/93 100 Nasal Cannula 2 01/06/23 13:24 01/06/23 13:24 01/06/23 13:24 01/06/23 13:01 01/06/23 13:24 01/06/23 07:01 01/06/23 07:01 Period Temp Pulse Resp BP Sys/Menard Pulse Ox O2 Del Method O2 Flow Rate Last 24 Hr 97.8 F-100.2 F 83-107 13-31 117-212/59-95 94-100 Nasal Cannula-Nasal Cannula 2-2 Intake and Output 01/06/23 01/06/23 01/06/23 03:59 11:59 19:59 Intake Total 1281 1349 56 Output Total 940 2210 690 Balance 341 -032 -663 Weight 71.123 kg Intake & Output: Intake & Output 01/06/23 01/06/23 01/06/23 03:59 11:59 19:59 Intake Total 1281 1349 56 Output Total 940 2210 690 Balance 341 -521 -661 Weight 71.123 kg Intake: IV 1281 1111 56 Sodium Chloride 0.9% 1,000 ml @ 618 150 mls/hr IV .Q6H40M [facility] Rx#: [id number] Unasyn 1.5 gm In Sodium 50 Chloride 0.9% 50 ml @ 100 mls/ hr IV Q12H [facility] Rx#:[id number] Calcium Gluconate 13.95 Meq In 80 80 Dextrose 5% in Water 50 ml @ 100 mls/hr IV Q6HP PRN Rx#: [id number] Dextrose 5%-1/2Ns IV Solution 1 1000 ,000 ml @ 150 mls/hr IV .Q6H40M [facility] Rx#:[id number] HumuLIN R 50 UNIT In Sodium 53 31 6 Chloride 0.9% 99.5 ml @ 1 UNIT/ HR 2 mls/hr IV CONT [facility] Rx#: [id number] Potassium Chloride 60 Meq In 530 Dextrose 5% in Water 500 ml @ 130 mls/hr IV ONCE ONE Rx#: [id number] Oral 238 Output: Urine Catheter Amount 940 2210 690 Other: Urine Appearance Clear Clear Clear Uretheral (Mcknight) Clear Urine Color Yellow Yellow Yellow Pale Uretheral (Mcknight) Yellow Pale Urine Odor Normal Normal OBJ DATA Labs 01/06/23 04:30 01/06/23 11:50 Labs: Abnormal Lab Results 01/06/23 01/06/23 01/06/23 08:27 08:27 05:30 WBC RBC Hgb Hct MCV MCH MCHC RDW Immature Gran % (Auto) Neut % (Auto) Lymph % (Auto) Lymph # (Auto) [place] # (Auto) Immature Gran # Absolute Neutrophils POC pH POC pCO2 POC pO2 POC HCO3 POC Total CO2 POC ABG Base Excess ABG Methemoglobin VBG pH VBG pCO2 VBG pO2 POC VBG pO2 VBG HCO3 VBG Total CO2 VBG O2 Saturation POC Venous O2 Sat VBG Base Excess Hgb O2 Saturation Carboxyhemoglobin Total Hemoglobin Sodium Potassium 2.8 L* Chloride 90 L Carbon Dioxide 40 H Anion Gap BUN 76 H Creatinine 5.4 H* Glucose 155 H Osmolality Uric Acid Calcium Ionized Calcium Lorraine 0.98 L Phosphorus Magnesium Alkaline Phosphatase 157 H Lactate Dehydrogenase Beta-Hydroxybutyrate 0.30 H Procalcitonin Urine Appearance Urine Protein Urine Glucose (UA) Urine Ketones Urine WBC Urine Mucus 01/06/23 01/06/23 01/06/23 05:20 04:45 04:30 WBC 21.8 H RBC 4.18 L Hgb 10.6 L Hct 32.1 L MCV 76.8 L MCH 25.4 L MCHC RDW 15.6 H Immature Gran % (Auto) 0.6 H Neut % (Auto) 86.2 H Lymph % (Auto) 6.6 L Lymph # (Auto) 1.43 L [place] # (Auto) 1.39 H Immature Gran # 0.14 H Absolute Neutrophils 18.83 H POC pH POC pCO2 POC pO2 POC HCO3 POC Total CO2 POC ABG Base Excess ABG Methemoglobin 0.1 L VBG pH 7.53 H VBG pCO2 VBG pO2 90.2 H POC VBG pO2 VBG HCO3 39.9 H VBG Total CO2 41.4 H* VBG O2 Saturation 87.2 H POC Venous O2 Sat VBG Base Excess 15 H Hgb O2 Saturation Carboxyhemoglobin 9.6 H Total Hemoglobin 11.9 L Sodium Potassium Chloride Carbon Dioxide Anion Gap BUN Creatinine Glucose Osmolality Uric Acid Calcium Ionized Calcium [place]raine Phosphorus Magnesium Alkaline Phosphatase Lactate Dehydrogenase Beta-Hydroxybutyrate Procalcitonin 0.90 H Urine Appearance Urine Protein Urine Glucose (UA) Urine Ketones Urine WBC Urine Mucus 01/06/23 01/06/23 01/06/23 04:30 00:20 00:20 WBC RBC Hgb Hct MCV MCH MCHC RDW Immature Gran % (Auto) Neut % (Auto) Lymph % (Auto) Lymph # (Auto) [place] # (Auto) Immature Gran # Absolute Neutrophils POC pH POC pCO2 POC pO2 POC HCO3 POC Total CO2 POC ABG Base Excess ABG Methemoglobin 0 L VBG pH 7.51 H VBG pCO2 53.8 H VBG pO2 95.1 H POC VBG pO2 VBG HCO3 42.3 H* VBG Total CO2 43.9 H* VBG O2 Saturation 90.9 H POC Venous O2 Sat VBG Base Excess 17 H Hgb O2 Saturation Carboxyhemoglobin 6.3 H Total Hemoglobin 11.0 L Sodium Potassium 3.0 L 3.0 L Chloride 87 L 82 L Carbon Dioxide 39 H 42 H* Anion Gap BUN 82 H 87 H Creatinine 5.5 H* 5.7 H* Glucose 163 H 209 H Osmolality Uric Acid Calcium Ionized Calcium Lorraine 0.90 L 0.85 L Phosphorus Magnesium Alkaline Phosphatase Lactate Dehydrogenase Beta-Hydroxybutyrate Procalcitonin Urine Appearance Urine Protein Urine Glucose (UA) Urine Ketones Urine WBC Urine Mucus 01/05/23 01/05/23 01/05/23 20:27 20:27 16:30 WBC RBC Hgb Hct MCV MCH MCHC RDW Immature Gran % (Auto) Neut % (Auto) Lymph % (Auto) Lymph # (Auto) [place] # (Auto) Immature Gran # Absolute Neutrophils POC pH POC pCO2 POC pO2 POC HCO3 POC Total CO2 POC ABG Base Excess ABG Methemoglobin 0.1 L VBG pH 7.74 H* VBG pCO2 32.5 L VBG pO2 140.4 H POC VBG pO2 VBG HCO3 42.6 H* VBG Total CO2 43.6 H* VBG O2 Saturation 83.8 H POC Venous O2 Sat VBG Base Excess 22 H Hgb O2 Saturation Carboxyhemoglobin 14.3 H Total Hemoglobin 11.1 L Sodium 132 L 129 L Potassium 2.9 L* Chloride 74 L 69 L Carbon Dioxide 36 H 35 H Anion Gap 22.0 H 25.0 H BUN 92 H 99 H Creatinine 5.9 H* 6.0 H* Glucose 450 H 769 H* Osmolality Uric Acid Calcium Ionized Calcium Lorraine 0.61 L* 0.63 L* Phosphorus Magnesium Alkaline Phosphatase Lactate Dehydrogenase Beta-Hydroxybutyrate Procalcitonin Urine Appearance Urine Protein Urine Glucose (UA) Urine Ketones Urine WBC Urine Mucus 01/05/23 01/05/23 01/05/23 16:30 14:00 14:00 WBC RBC Hgb Hct MCV MCH MCHC RDW Immature Gran % (Auto) Neut % (Auto) Lymph % (Auto) Lymph # (Auto) [place] # (Auto) Immature Gran # Absolute Neutrophils POC pH POC pCO2 POC pO2 POC HCO3 POC Total CO2 POC ABG Base Excess ABG Methemoglobin 0.3 L 0.2 L VBG pH 7.62 H* 7.51 H VBG pCO2 36.9 L VBG pO2 113.8 H 96.0 H POC VBG pO2 VBG HCO3 37.4 H 38.6 H VBG Total CO2 38.6 H 40.2 H VBG O2 Saturation 87.3 H 91.0 H POC Venous O2 Sat VBG Base Excess 15 H 14 H Hgb O2 Saturation Carboxyhemoglobin 10.4 H 5.9 H Total Hemoglobin 10.3 L 10.3 L Sodium Potassium Chloride Carbon Dioxide Anion Gap BUN Creatinine Glucose Osmolality Uric Acid Calcium Ionized Calcium Lorraine 0.65 L* Phosphorus Magnesium Alkaline Phosphatase Lactate Dehydrogenase Beta-Hydroxybutyrate Procalcitonin Urine Appearance Urine Protein Urine Glucose (UA) Urine Ketones Urine WBC Urine Mucus 01/05/23 01/05/23 01/05/23 14:00 13:40 13:18 WBC RBC Hgb Hct MCV MCH MCHC RDW Immature Gran % (Auto) Neut % (Auto) Lymph % (Auto) Lymph # (Auto) [place] # (Auto) Immature Gran # Absolute Neutrophils POC pH 7.46 H POC pCO2 58.2 H* POC pO2 66 L POC HCO3 40.9 H POC Total CO2 43.0 H* POC ABG Base Excess 17.0 H ABG Methemoglobin VBG pH VBG pCO2 VBG pO2 POC VBG pO2 VBG HCO3 VBG Total CO2 VBG O2 Saturation POC Venous O2 Sat VBG Base Excess Hgb O2 Saturation 93.0 L Carboxyhemoglobin Total Hemoglobin Sodium 128 L Potassium 3.2 L Chloride 66 L Carbon Dioxide 35 H Anion Gap 27.0 H BUN 99 H Creatinine 6.3 H* Glucose 1005 H* Osmolality Uric Acid 13.7 H Calcium 6.8 L Ionized Calcium Lorraine Phosphorus 6.8 H* Magnesium 3.8 H Alkaline Phosphatase 177 H Lactate Dehydrogenase 244 H Beta-Hydroxybutyrate Procalcitonin Urine Appearance Hazy A Urine Protein 100 A Urine Glucose (UA) >=500 A Urine Ketones 5 A Urine WBC 5 H Urine Mucus Few A 01/05/23 01/05/23 01/05/23 06:47 06:47 06:47 WBC RBC Hgb Hct MCV MCH MCHC RDW Immature Gran % (Auto) Neut % (Auto) Lymph % (Auto) Lymph # (Auto) [place] # (Auto) Immature Gran # Absolute Neutrophils POC pH POC pCO2 POC pO2 POC HCO3 POC Total CO2 POC ABG Base Excess ABG Methemoglobin VBG pH VBG pCO2 VBG pO2 POC VBG pO2 VBG HCO3 VBG Total CO2 VBG O2 Saturation POC Venous O2 Sat VBG Base Excess Hgb O2 Saturation Carboxyhemoglobin Total Hemoglobin Sodium 118 L* Potassium Chloride < 60 L Carbon Dioxide 19 L Anion Gap 39.0 H BUN 98 H Creatinine 6.0 H* Glucose 1174 H* Osmolality 401 H Uric Acid Calcium 6.9 L Ionized Calcium Lorraine Phosphorus 12.2 H* Magnesium 4.2 H* Alkaline Phosphatase 189 H Lactate Dehydrogenase Beta-Hydroxybutyrate 15.80 H Procalcitonin Urine Appearance Urine Protein Urine Glucose (UA) Urine Ketones Urine WBC Urine Mucus 01/05/23 01/05/23 06:47 06:47 WBC 12.8 H RBC 3.62 L Hgb 9.4 L Hct 34.0 L MCV MCH MCHC 27.6 L RDW 15.7 H Immature Gran % (Auto) Neut % (Auto) 82.5 H Lymph % (Auto) 8.8 L Lymph # (Auto) 1.12 L [place] # (Auto) 1.02 H Immature Gran # 0.07 H Absolute Neutrophils 10.54 H POC pH POC pCO2 POC pO2 POC HCO3 POC Total CO2 POC ABG Base Excess ABG Methemoglobin VBG pH VBG pCO2 VBG pO2 POC VBG pO2 47 H VBG HCO3 VBG Total CO2 VBG O2 Saturation POC Venous O2 Sat 80.0 H VBG Base Excess Hgb O2 Saturation Carboxyhemoglobin Total Hemoglobin Sodium Potassium Chloride Carbon Dioxide Anion Gap BUN Creatinine Glucose Osmolality Uric Acid Calcium Ionized Calcium [place] Phosphorus Magnesium Alkaline Phosphatase Lactate Dehydrogenase Beta-Hydroxybutyrate Procalcitonin Urine Appearance Urine Protein Urine Glucose (UA) Urine Ketones Urine WBC Urine Mucus Meds: Medications Acetaminophen (Acetaminophen 325 Mg Tablet) 650 mg PO Q4-6HP PRN; Protocol PRN Reason: Per Pain Protocol/Fever > 101 Dextrose (Dextrose 50% 50 Ml Syringe) 50 ml IV PRN PRN PRN Reason: Hypoglycemia Diagnostic Test (Pha) (Accu-Chek 1 Each Strip) 1 each FS Q1 [facility] Last Admin: 01/06/23 12:58 Dose: 1 each Hydralazine HCl (Hydralazine 20 Mg/Ml Vial) 10 mg IV Q4HP PRN PRN Reason: Hypertension Last Admin: 01/06/23 12:53 Dose: 10 mg Hydrocortisone Acetate (Hydrocortisone Acetate 25 Mg Supp.Rect) 25 mg MD TID PRN PRN Reason: hemorrhoids Sodium Chloride (Sodium Chloride 0.9%) 1,000 mls @ 150 mls/hr IV .Q6H40M [facility] Last Admin: 01/06/23 07:56 Dose: Not Given Calcium Gluconate 13.95 meq/ (Dextrose) 80 mls @ 100 mls/hr IV Q6HP PRN PRN Reason: Hypocalcemia Last Infusion: 01/06/23 06:01 Dose: Infused Insulin Human Regular 50 unit/ (Sodium Chloride) 100 mls @ 2 mls/hr IV CONT [facility] ; Protocol Last Titration: 01/06/23 12:58 Dose: 4 unit/hr, 8 mls/hr Dextrose/Sodium Chloride (Dextrose 5%-1/2ns Iv Solution) 1,000 mls @ 150 mls/hr IV .Q6H40M [facility] Last Admin: 01/06/23 07:56 Dose: 150 mls/hr Ampicillin Sodium/Sulbactam (Sodium 1.5 gm/ Sodium Chloride) 50 mls @ 100 mls/hr IV Q12H [facility] Last Infusion: 01/06/23 12:05 Dose: Infused Potassium Chloride 40 meq/ (Dextrose) 520 mls @ 130 mls/hr IV ONCE ONE Stop: 01/06/23 17:29 Last Admin: 01/06/23 12:11 Dose: 130 mls/hr Lorazepam (Lorazepam 1 Mg Tablet) 1 mg PO DAILYP PRN PRN Reason: Agitation Lorazepam (Lorazepam 2 Mg/Ml Vial) 0.5 mg IV Q6HP PRN PRN Reason: ANXIETY/SEDATION Metoclopramide HCl (Metoclopramide 10 Mg/2 Ml Vial) 5 mg IV Q8 PRN PRN Reason: Nausea Last Admin: 01/06/23 09:00 Dose: 5 mg Ondansetron HCl (Ondansetron 4 Mg/2 Ml Vial) 4 mg IV Q4-6HP PRN; Protocol PRN Reason: Nausea And Vomiting Last Admin: 01/06/23 12:11 Dose: 4 mg Pantoprazole Sodium (Pantoprazole 40 Mg Vial) 40 mg IV BIDAC [facility] Last Admin: 01/06/23 08:55 Dose: 40 mg Promethazine HCl (Promethazine 25 Mg Supp.Rect) 25 mg MD Q6HP PRN PRN Reason: Nausea And Vomiting Promethazine HCl (Promethazine 25 Mg/Ml Vial) 6.25 mg IV Q4-6HP PRN PRN Reason: Nausea And Vomiting Last Admin: 01/05/23 22:15 Dose: 6.25 mg Ropinirole HCl (Ropinirole 0.25 Mg Tablet) 0.5 mg PO HSP PRN PRN Reason: restless leg Scopolamine (Scopolamine 1 Patch Patch) 1 patch TOPICAL Q72H [facility] Last Admin: 01/05/23 14:49 Dose: 1 patch Sodium Chloride (0.9 % Sodium Chloride 10 Ml Syringe) 10 ml IV Q8 [facility] Last Admin: 01/06/23 04:57 Dose: 10 ml Sucralfate (Sucralfate 1 Gm Tablet) 1 gm PO QID [facility] Last Admin: 01/06/23 12:11 Dose: 1 gm ABG Interpretation ABG results: 01/05/23 01/05/23 01/05/23 14:00 16:30 20:27 ABG Methemoglobin 0.2 L 0.3 L 0.1 L VBG pH 7.51 H 7.62 H* 7.74 H* VBG pCO2 50.0 36.9 L 32.5 L VBG pO2 96.0 H 113.8 H 140.4 H VBG HCO3 38.6 H 37.4 H 42.6 H* VBG Total CO2 40.2 H 38.6 H 43.6 H* VBG O2 Saturation 91.0 H 87.3 H 83.8 H VBG Base Excess 14 H 15 H 22 H 01/06/23 01/06/23 00:20 04:45 ABG Methemoglobin 0 L 0.1 L VBG pH 7.51 H 7.53 H VBG pCO2 53.8 H 48.5 VBG pO2 95.1 H 90.2 H VBG HCO3 42.3 H* 39.9 H VBG Total CO2 43.9 H* 41.4 H* VBG O2 Saturation 90.9 H 87.2 H VBG Base Excess 17 H 15 H A/P Time Spent With Patient Time: Total time spent is greater than 50% in coordination of care (as documented) at patient's floor/unit and/or counseling patient:
[2023-01-06 14:38] LABS: ALT/SGPT 10 U/L (<40); AST/SGOT 18 U/L (<40); Albumin 3.8 gm/dL (3.2-5.2); Albumin/Globulin Ratio 1.3 (1.0-2.3); Alkaline Phosphatase 171 U/L (39-117); Bilirubin,Total 0.3 mg/dL (0.1-1.0); Blood Urea Nitrogen 71 mg/dL (6-20); Calcium 8.9 mg/dL (8.6-10.4); Carbon Dioxide 37 mmol/L (22-30); Chloride 88 mmol/L (96-108); Glomerular Filtration Rate 14; Glucose 297 mg/dL (70-105)
[2023-01-06] MEDS ORDERED: [UNRECOGNIZED DRUG - REMARK] INTRANASAL PRN (15:16)
[2023-01-06] MEDS: LABETALOL 5 MG/ML ML IV PRN (15:29)
[2023-01-06] MEDS ORDERED: LABETALOL 5 MG/ML ML IV SCH (16:00)
[2023-01-06] MEDS: CARVEDILOL 6.25 MG TABLET PO SCH (16:32)
[2023-01-06] MEDS ORDERED: INSULIN PUMP SUB-Q SCH (17:15)
[2023-01-06] MEDS: amLODIPine 10 MG TABLET PO SCH (17:24)
--- NOTE | 2023-01-06 17:53 | EKG ---
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 Measurements Intervals [place] Rate: 76 P: 78 LA: 163 QRS: 84 QRSD: 102 T: 92 QT: 510 QTc: 573 Interpretive Statements Sinus rhythm Ventricular premature complex Probable left ventricular hypertrophy Repol abnrm likely from LVH Prolonged QT interval Electronically Signed On 01-06-2023 17:53:33 PDT by Demetrius Interiano M.D. /[id number]
--- NOTE | 2023-01-06 18:04 | EKG ---
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 Measurements Intervals [place] Rate: 75 P: 53 [place]: 143 QRS: 65 QRSD: 87 T: 113 QT: 549 QTc: 614 Interpretive Statements Sinus rhythm Consider left ventricular hypertrophy Nonspecific T abnormalities, lateral leads Prolonged QT interval Electronically Signed On 01-06-2023 18:03:39 PDT by Demetrius Interiano M.D. /[id number]
--- NOTE | 2023-01-06 18:07 | Internal Med Progress Note ---
SUBJECTIVE Subjective Patient information: Note initiated : 01/06/23 at 6:06 pm Service Date, if different from initiated Date: [] Patient: Mauri Levine 37 y/o M admitted on 01/05/23 for High blood sugar. Chief Complaint: [] Additional PMFSH (Level 3 Only): Mr. Levine is a 37 year old male with poorly controlled diabetes mellitus 1 on insulin pump, diabetic gastroparesis, noncompliance with treatment, frequent admissions for DKA, CKD stage IV, hypertension, IV drug abuse, polysubstance abuse including meth and fentanyl per patient, marijuana abuse and possible cyclic vomiting presented with persistent nausea, vomiting and generalized weakn ess. Patient has multiple hospitalizations for DKA and always have same issue of insulin pump malfunction, dehydration, nausea and vomiting. This time patient reports that his pump stopped working for 2 days, he has been trying to give himself insulin but has been unable to keep up with continuous glucose monitoring which has been reading it high. Patient reports some hematemesis in the setting of persistent vomiting. He denies any history of cirrhosis. He reports that whenever he has bouts of vomiting he does have mild hematemesis. He reports no fever, no chills, no dysuria, no shortness of breath, no chest pain. On presentation patient vitals were stable. Blood glucose 1174. Beta- hydroxybutyrate 15. WBC 12.8, hemoglobin 9.4. VBG with pH of 734, HCO3 24. Chemistries showed sodium 118, potassium 4.3, anion gap 39, CO2 19, chloride less than 60. BUN 98, creatinine 6.0 looks like his baseline is about 3-4., phosphorus 12, magnesium 4.2. Patient lab work is concerning for hyperosmolar hyperglycemic state. He does have an anion gap but no acidosis this is likely in the setting of vomiting induced anion gap alkalosis. Patient will be started on insulin drip, IV fluids and will be admitted to ICU with nephrology consult. 01/06. Mental status improving, some nausea no vomiting, no diarrhea overnight. low-grade fever and leukocytosis worsening. Blood glucose improved to 163. Patient on IV insulin drip, his mother will be bringing his insulin pump. Serum creatinine peaked to 6.3 and down to 5.5 in past 24 hours. Baseline serum creatinine 3.1-4.7 in November 2022 patient had good urine output of 2.5 L in past 24 hours. Metabolic alkalosis improving. Hyponatremia resolved. He has hypokalemia which is being replaced. PCR positive for toxigenic C. difficile, GDH positive. Will obtain chest x-ray 01/07. Back to baseline mental status, smiling appropriately appears perky. Chest x-ray with mild diffuse infiltrate in left lung. Overnight low-grade temp Tmax 99.6. Leukocytosis resolved 10.1 today. Minimal nausea, no vomiting, no diarrhea. Requesting to advance diet. Patient on home insulin pump dose and blood glucose stable 110-140s.. Hyponatremia has resolved. Potassium now within normal range. Mcknight and plan to DC Mcknight Review of Systems Reports minimal nausea, no vomiting, no diarrhea no abdominal pain. No confusi on. Feels improved and requesting for diet Physical exam General: Alert and awake, smiling appropriately, appears in good spirit, no distress HEENT: NCAT PERRL EOMI. No conjunctivitis. Membranes moist. Neck: Supple, trachea midline Cardiovascular: RRR. No murmur. No rubs. No gallops. Respiratory: Chest is clear bilaterally, on 1 L nasal cannula oxygen Gastrointestinal: Soft. Nontender, bowel sounds active : Mcknight catheter draining shreyas-colored urine Musculoskeletal: No pain. Skin: Warm. Dry. No rash Neurologic: Alert and oriented, no focal deficits, no confusion, normal mentation Psych: Appropriate mood and affect Assessment and plan DKA/HHS. (h/o DMI with h/o Gastroparesis/Neuropathy): usually triggered by noncompliance and poor self care) patient with anion gap but no acidosis, likely in the setting of volume contraction, vomiting induced anion gap alkalosis. DKA now resolved. Patient on home insulin pump dose. Blood glucose stable in 110s-140s. Electrolytes stable. Advance diet to [facility] Suspected aspiration pneumonia, in the setting of persistent vomiting. Chest x- ray with diffuse left-sided infiltrate. On Unasyn 1.5 g every 12 hours renally dosed per pharmacy C. difficile infection. Patient with diarrhea, leukocytosis, stool GDH positive, toxin negative however PCR is positive. Will elect to treat with vanc omycin 125 mg 4 times daily also as patient is receiving IV antibiotic for pneumonia. contact precautions Nausea, vomiting, abdominal pain secondary to above with gastroparesis and h/o cyclic vomiting and possibly marijuana hyperemesis Hematemesis, likely in the setting of persistent vomiting. CT scan abdomen and pelvis without any acute findings. IV Protonix. Sucralfate 4 times daily. Monitor CBC Acute dehydration/volume depletion ROSALIO on CKD stage IV. Serum creatinine peaked to 6.3 and now down to 4.6 Baseline serum creatinine: 3.1-4.7 (eGFR 15-17) in November 2022. Urine output>5000 ml reported in the past 24 hours. Metabolic alkalosis, improved. Follow-up with Dr. Mills on 02/28/2023. Hyponatremia, resolved. Hypokalemia, resolved Electrolyte abnormality. Hypochloremia, hypermagnesemia, hyper phosphatemia Noncompliance with medical therapy Marijuana abuse. Possible cannabis hyperemesis syndrome. Patient states he stopped using marijuana 1 month ago. Urine toxicology negative for THC Hypertension. Currently blood pressure stable Anemia. Chronic. Also hematemesis. H&H stable Anxiety/depression/binge eating disorder: Resume SSRI *Long QT Syndrome: noted on EKG's since 2018. Pt is on SSRI. Antiemetics that won't prolong QT (Scopolamine,Benzodiazepines) *GERD: PPI *long-term prognosis guarded if he doesn't become more vigilant in caring for his disease Deconditioning. PT OT Full code Can downgrade to MedSurg. Anticipate discharge in 24 to 48 hours. Total time taken over 50 minutes Constitutional Vitals: Vital Signs Temp Pulse Resp BP Pulse Ox O2 Del Method O2 Flow Rate 99.3 F H 76 22 123/61 98 Room Air 2 01/06/23 17:43 01/06/23 17:43 01/06/23 17:43 01/06/23 17:01 01/06/23 17:43 01/06/23 17:00 01/06/23 07:01 Period Temp Pulse Resp BP Sys/Menard Pulse Ox O2 Del Method O2 Flow Rate Last 24 Hr 98.8 F-100.6 F 71-107 12-31 117-212/59-95 94-100 Nasal Cannula-Room Air 2-2 Intake and Output 01/06/23 01/06/23 01/06/23 03:59 11:59 19:59 Intake Total 1281 1349 2591 Output Total 940 2210 1490 Balance 341 -861 1101 Weight 71.123 kg 71.123 kg Patient Weight 01/07/23 03:59 Weight 71.123 kg Intake & Output: Intake & Output 01/06/23 01/06/23 01/06/23 03:59 11:59 19:59 Intake Total 1281 1349 2591 Output Total 940 2210 1490 Balance 341 -861 1101 Weight 71.123 kg 71.123 kg Intake: IV 1281 1111 1621 Sodium Chloride 0.9% 1,000 ml @ 618 150 mls/hr IV .Q6H40M [facility] Rx#: [id number] Unasyn 1.5 gm In Sodium 50 Chloride 0.9% 50 ml @ 100 mls/ hr IV Q12H [facility] Rx#:[id number] Calcium Gluconate 13.95 Meq In 80 80 Dextrose 5% in Water 50 ml @ 100 mls/hr IV Q6HP PRN Rx#: [id number] Dextrose 5%-1/2Ns IV Solution 1 1000 1000 ,000 ml @ 150 mls/hr IV .Q6H40M [facility] Rx#:[id number] HumuLIN R 50 UNIT In Sodium 53 31 51 Chloride 0.9% 99.5 ml @ 1 UNIT/ HR 2 mls/hr IV CONT [facility] Rx#: [id number] Potassium Chloride 40 Meq In 530 520 Dextrose 5% in Water 500 ml @ 130 mls/hr IV ONCE ONE Rx#: [id number] Oral 238 970 Output: Urine Catheter Amount 940 2210 1490 Other: Urine Appearance Clear Clear Clear Uretheral (Mcknight) Clear Clear Urine Color Yellow Yellow Yellow Pale Uretheral (Mcknight) Yellow Yellow Pale Pale Urine Odor Normal Normal OBJ DATA Labs 01/07/23 05:00 01/07/23 05:00 Labs: Abnormal Lab Results 01/06/23 01/06/23 01/06/23 11:50 08:27 08:27 WBC RBC Hgb Hct MCV MCH MCHC RDW Immature Gran % (Auto) Neut % (Auto) Lymph % (Auto) Lymph # (Auto) [place] # (Auto) Immature Gran # Absolute Neutrophils POC pH POC pCO2 POC pO2 POC HCO3 POC Total CO2 POC ABG Base Excess ABG Methemoglobin VBG pH VBG pCO2 VBG pO2 POC VBG pO2 VBG HCO3 VBG Total CO2 VBG O2 Saturation POC Venous O2 Sat VBG Base Excess Hgb O2 Saturation Carboxyhemoglobin Total Hemoglobin Sodium Potassium 2.8 L* Chloride 88 L 90 L Carbon Dioxide 37 H 40 H Anion Gap BUN 71 H 76 H Creatinine 5.0 H* 5.4 H* Glucose 297 H 155 H Osmolality Uric Acid Calcium Ionized Calcium Lorraine 0.98 L Phosphorus Magnesium Alkaline Phosphatase 171 H 157 H Lactate Dehydrogenase Beta-Hydroxybutyrate Procalcitonin Urine Appearance Urine Protein Urine Glucose (UA) Urine Ketones Urine WBC Urine Mucus 01/06/23 01/06/23 01/06/23 05:30 05:20 04:45 WBC RBC Hgb Hct MCV MCH MCHC RDW Immature Gran % (Auto) Neut % (Auto) Lymph % (Auto) Lymph # (Auto) [place] # (Auto) Immature Gran # Absolute Neutrophils POC pH POC pCO2 POC pO2 POC HCO3 POC Total CO2 POC ABG Base Excess ABG Methemoglobin 0.1 L VBG pH 7.53 H VBG pCO2 VBG pO2 90.2 H POC VBG pO2 VBG HCO3 39.9 H VBG Total CO2 41.4 H* VBG O2 Saturation 87.2 H POC Venous O2 Sat VBG Base Excess 15 H Hgb O2 Saturation Carboxyhemoglobin 9.6 H Total Hemoglobin 11.9 L Sodium Potassium Chloride Carbon Dioxide Anion Gap BUN Creatinine Glucose Osmolality Uric Acid Calcium Ionized Calcium [place] Phosphorus Magnesium Alkaline Phosphatase Lactate Dehydrogenase Beta-Hydroxybutyrate 0.30 H Procalcitonin 0.90 H Urine Appearance Urine Protein Urine Glucose (UA) Urine Ketones Urine WBC Urine Mucus 01/06/23 01/06/23 01/06/23 04:30 04:30 00:20 WBC 21.8 H RBC 4.18 L Hgb 10.6 L Hct 32.1 L MCV 76.8 L MCH 25.4 L MCHC RDW 15.6 H Immature Gran % (Auto) 0.6 H Neut % (Auto) 86.2 H Lymph % (Auto) 6.6 L Lymph # (Auto) 1.43 L [place] # (Auto) 1.39 H Immature Gran # 0.14 H Absolute Neutrophils 18.83 H POC pH POC pCO2 POC pO2 POC HCO3 POC Total CO2 POC ABG Base Excess ABG Methemoglobin VBG pH VBG pCO2 VBG pO2 POC VBG pO2 VBG HCO3 VBG Total CO2 VBG O2 Saturation POC Venous O2 Sat VBG Base Excess Hgb O2 Saturation Carboxyhemoglobin Total Hemoglobin Sodium Potassium 3.0 L 3.0 L Chloride 87 L 82 L Carbon Dioxide 39 H 42 H* Anion Gap BUN 82 H 87 H Creatinine 5.5 H* 5.7 H* Glucose 163 H 209 H Osmolality Uric Acid Calcium Ionized Calcium [place]raine 0.90 L 0.85 L Phosphorus Magnesium Alkaline Phosphatase Lactate Dehydrogenase Beta-Hydroxybutyrate Procalcitonin Urine Appearance Urine Protein Urine Glucose (UA) Urine Ketones Urine WBC Urine Mucus 01/06/23 01/05/23 01/05/23 00:20 20:27 20:27 WBC RBC Hgb Hct MCV MCH MCHC RDW Immature Gran % (Auto) Neut % (Auto) Lymph % (Auto) Lymph # (Auto) [place] # (Auto) Immature Gran # Absolute Neutrophils POC pH POC pCO2 POC pO2 POC HCO3 POC Total CO2 POC ABG Base Excess ABG Methemoglobin 0 L 0.1 L VBG pH 7.51 H 7.74 H* VBG pCO2 53.8 H 32.5 L VBG pO2 95.1 H 140.4 H POC VBG pO2 VBG HCO3 42.3 H* 42.6 H* VBG Total CO2 43.9 H* 43.6 H* VBG O2 Saturation 90.9 H 83.8 H POC Venous O2 Sat VBG Base Excess 17 H 22 H Hgb O2 Saturation Carboxyhemoglobin 6.3 H 14.3 H Total Hemoglobin 11.0 L 11.1 L Sodium 132 L Potassium Chloride 74 L Carbon Dioxide 36 H Anion Gap 22.0 H BUN 92 H Creatinine 5.9 H* Glucose 450 H Osmolality Uric Acid Calcium Ionized Calcium Lorraine 0.61 L* Phosphorus Magnesium Alkaline Phosphatase Lactate Dehydrogenase Beta-Hydroxybutyrate Procalcitonin Urine Appearance Urine Protein Urine Glucose (UA) Urine Ketones Urine WBC Urine Mucus 01/05/23 01/05/23 01/05/23 16:30 16:30 14:00 WBC RBC Hgb Hct MCV MCH MCHC RDW Immature Gran % (Auto) Neut % (Auto) Lymph % (Auto) Lymph # (Auto) [place] # (Auto) Immature Gran # Absolute Neutrophils POC pH POC pCO2 POC pO2 POC HCO3 POC Total CO2 POC ABG Base Excess ABG Methemoglobin 0.3 L VBG pH 7.62 H* VBG pCO2 36.9 L VBG pO2 113.8 H POC VBG pO2 VBG HCO3 37.4 H VBG Total CO2 38.6 H VBG O2 Saturation 87.3 H POC Venous O2 Sat VBG Base Excess 15 H Hgb O2 Saturation Carboxyhemoglobin 10.4 H Total Hemoglobin 10.3 L Sodium 129 L Potassium 2.9 L* Chloride 69 L Carbon Dioxide 35 H Anion Gap 25.0 H BUN 99 H Creatinine 6.0 H* Glucose 769 H* Osmolality Uric Acid Calcium Ionized Calcium Lorraine 0.63 L* 0.65 L* Phosphorus Magnesium Alkaline Phosphatase Lactate Dehydrogenase Beta-Hydroxybutyrate Procalcitonin Urine Appearance Urine Protein Urine Glucose (UA) Urine Ketones Urine WBC Urine Mucus 01/05/23 01/05/23 01/05/23 14:00 14:00 13:40 WBC RBC Hgb Hct MCV MCH MCHC RDW Immature Gran % (Auto) Neut % (Auto) Lymph % (Auto) Lymph # (Auto) [place] # (Auto) Immature Gran # Absolute Neutrophils POC pH POC pCO2 POC pO2 POC HCO3 POC Total CO2 POC ABG Base Excess ABG Methemoglobin 0.2 L VBG pH 7.51 H VBG pCO2 VBG pO2 96.0 H POC VBG pO2 VBG HCO3 38.6 H VBG Total CO2 40.2 H VBG O2 Saturation 91.0 H POC Venous O2 Sat VBG Base Excess 14 H Hgb O2 Saturation Carboxyhemoglobin 5.9 H Total Hemoglobin 10.3 L Sodium 128 L Potassium 3.2 L Chloride 66 L Carbon Dioxide 35 H Anion Gap 27.0 H BUN 99 H Creatinine 6.3 H* Glucose 1005 H* Osmolality Uric Acid 13.7 H Calcium 6.8 L Ionized Calcium [place]raine Phosphorus 6.8 H* Magnesium 3.8 H Alkaline Phosphatase 177 H Lactate Dehydrogenase 244 H Beta-Hydroxybutyrate Procalcitonin Urine Appearance Hazy A Urine Protein 100 A Urine Glucose (UA) >=500 A Urine Ketones 5 A Urine WBC 5 H Urine Mucus Few A 01/05/23 01/05/23 01/05/23 13:18 06:47 06:47 WBC RBC Hgb Hct MCV MCH MCHC RDW Immature Gran % (Auto) Neut % (Auto) Lymph % (Auto) Lymph # (Auto) [place] # (Auto) Immature Gran # Absolute Neutrophils POC pH 7.46 H POC pCO2 58.2 H* POC pO2 66 L POC HCO3 40.9 H POC Total CO2 43.0 H* POC ABG Base Excess 17.0 H ABG Methemoglobin VBG pH VBG pCO2 VBG pO2 POC VBG pO2 VBG HCO3 VBG Total CO2 VBG O2 Saturation POC Venous O2 Sat VBG Base Excess Hgb O2 Saturation 93.0 L Carboxyhemoglobin Total Hemoglobin Sodium 118 L* Potassium Chloride < 60 L Carbon Dioxide 19 L Anion Gap 39.0 H BUN 98 H Creatinine 6.0 H* Glucose 1174 H* Osmolality 401 H Uric Acid Calcium 6.9 L Ionized Calcium Lorraine Phosphorus 12.2 H* Magnesium 4.2 H* Alkaline Phosphatase 189 H Lactate Dehydrogenase Beta-Hydroxybutyrate Procalcitonin Urine Appearance Urine Protein Urine Glucose (UA) Urine Ketones Urine WBC Urine Mucus 01/05/23 01/05/23 01/05/23 06:47 06:47 06:47 WBC 12.8 H RBC 3.62 L Hgb 9.4 L Hct 34.0 L MCV MCH MCHC 27.6 L RDW 15.7 H Immature Gran % (Auto) Neut % (Auto) 82.5 H Lymph % (Auto) 8.8 L Lymph # (Auto) 1.12 L [place] # (Auto) 1.02 H Immature Gran # 0.07 H Absolute Neutrophils 10.54 H POC pH POC pCO2 POC pO2 POC HCO3 POC Total CO2 POC ABG Base Excess ABG Methemoglobin VBG pH VBG pCO2 VBG pO2 POC VBG pO2 47 H VBG HCO3 VBG Total CO2 VBG O2 Saturation POC Venous O2 Sat 80.0 H VBG Base Excess Hgb O2 Saturation Carboxyhemoglobin Total Hemoglobin Sodium Potassium Chloride Carbon Dioxide Anion Gap BUN Creatinine Glucose Osmolality Uric Acid Calcium Ionized Calcium [place] Phosphorus Magnesium Alkaline Phosphatase Lactate Dehydrogenase Beta-Hydroxybutyrate 15.80 H Procalcitonin Urine Appearance Urine Protein Urine Glucose (UA) Urine Ketones Urine WBC Urine Mucus Meds: Medications Acetaminophen (Acetaminophen 325 Mg Tablet) 650 mg PO Q4-6HP PRN; Protocol PRN Reason: Per Pain Protocol/Fever > 101 Amlodipine Besylate (Amlodipine 10 Mg Tablet) 10 mg PO QDAY [facility] Last Admin: 01/06/23 17:24 Dose: 10 mg Carvedilol (Carvedilol 6.25 Mg Tablet) 6.25 mg PO BIDCC [facility] Last Admin: 01/06/23 16:32 Dose: 6.25 mg Dextrose (Dextrose 50% 50 Ml Syringe) 50 ml IV PRN PRN PRN Reason: Hypoglycemia Diagnostic Test (Pha) (Accu-Chek 1 Each Strip) 1 each FS Q1 [facility] Last Admin: 01/06/23 17:00 Dose: 1 each Diltiazem HCl (Diltiazem 30 Mg Tablet) 60 mg PO QDAY [facility] Famotidine (Famotidine 20 Mg Tablet) 20 mg PO BID [facility] Fluoxetine HCl (Fluoxetine Hcl 20 Mg Capsule) 20 mg PO QDAY [facility] Hydralazine HCl (Hydralazine 20 Mg/Ml Vial) 10 mg IV Q4HP PRN PRN Reason: Hypertension Last Admin: 01/06/23 12:53 Dose: 10 mg Hydrocortisone Acetate (Hydrocortisone Acetate 25 Mg Supp.Rect) 25 mg GA TID PRN PRN Reason: hemorrhoids Sodium Chloride (Sodium Chloride 0.9%) 1,000 mls @ 150 mls/hr IV .Q6H40M [facility] Last Admin: 01/06/23 14:36 Dose: Not Given Calcium Gluconate 13.95 meq/ (Dextrose) 80 mls @ 100 mls/hr IV Q6HP PRN PRN Reason: Hypocalcemia Last Infusion: 01/06/23 06:01 Dose: Infused Insulin Human Regular 50 unit/ (Sodium Chloride) 100 mls @ 2 mls/hr IV CONT [facility]; Protocol Last Titration: 01/06/23 17:15 Dose: 0 unit/hr, 0 mls/hr Dextrose/Sodium Chloride (Dextrose 5%-1/2ns Iv Solution) 1,000 mls @ 150 mls/hr IV .Q6H40M [facility] Last Admin: 01/06/23 15:14 Dose: 150 mls/hr Ampicillin Sodium/Sulbactam (Sodium 1.5 gm/ Sodium Chloride) 50 mls @ 100 mls/hr IV Q12H [facility] Last Infusion: 01/06/23 12:05 Dose: Infused Labetalol HCl (Labetalol 5 Mg/Ml Ml) 10 mg IV Q2 PRN PRN Reason: Hypertension Last Admin: 01/06/23 15:29 Dose: 10 mg Lorazepam (Lorazepam 1 Mg Tablet) 1 mg PO DAILYP PRN PRN Reason: Agitation Lorazepam (Lorazepam 2 Mg/Ml Vial) 0.5 mg IV Q6HP PRN PRN Reason: ANXIETY/SEDATION Metoclopramide HCl (Metoclopramide 10 Mg/2 Ml Vial) 5 mg IV Q8 PRN PRN Reason: Nausea Last Admin: 01/06/23 09:00 Dose: 5 mg Ondansetron HCl (Ondansetron 4 Mg/2 Ml Vial) 4 mg IV Q4-6HP PRN; Protocol PRN Reason: Nausea And Vomiting Last Admin: 01/06/23 12:11 Dose: 4 mg Pantoprazole Sodium (Pantoprazole 40 Mg Vial) 40 mg IV BIDAC [facility] Last Admin: 01/06/23 16:32 Dose: 40 mg Insulin Pump 1 dose SUB-Q DUR [facility] Promethazine HCl (Promethazine 25 Mg Supp.Rect) 25 mg GA Q6HP PRN PRN Reason: Nausea And Vomiting Promethazine HCl (Promethazine 25 Mg/Ml Vial) 6.25 mg IV Q4-6HP PRN PRN Reason: Nausea And Vomiting Last Admin: 01/05/23 22:15 Dose: 6.25 mg Ropinirole HCl (Ropinirole 0.25 Mg Tablet) 0.5 mg PO HSP PRN PRN Reason: restless leg Scopolamine (Scopolamine 1 Patch Patch) 1 patch TOPICAL Q72H [facility] Last Admin: 01/05/23 14:49 Dose: 1 patch Sodium Chloride (0.9 % Sodium Chloride 10 Ml Syringe) 10 ml IV Q8 [facility] Last Admin: 01/06/23 14:36 Dose: Not Given Sucralfate (Sucralfate 1 Gm Tablet) 1 gm PO QID [facility] Last Admin: 01/06/23 16:32 Dose: 1 gm ABG Interpretation ABG results: 01/05/23 01/05/23 01/05/23 14:00 16:30 20:27 ABG Methemoglobin 0.2 L 0.3 L 0.1 L VBG pH 7.51 H 7.62 H* 7.74 H* VBG pCO2 50.0 36.9 L 32.5 L VBG pO2 96.0 H 113.8 H 140.4 H VBG HCO3 38.6 H 37.4 H 42.6 H* VBG Total CO2 40.2 H 38.6 H 43.6 H* VBG O2 Saturation 91.0 H 87.3 H 83.8 H VBG Base Excess 14 H 15 H 22 H 01/06/23 01/06/23 00:20 04:45 ABG Methemoglobin 0 L 0.1 L VBG pH 7.51 H 7.53 H VBG pCO2 53.8 H 48.5 VBG pO2 95.1 H 90.2 H VBG HCO3 42.3 H* 39.9 H VBG Total CO2 43.9 H* 41.4 H* VBG O2 Saturation 90.9 H 87.2 H VBG Base Excess 17 H 15 H A/P Time Spent With Patient Time: Total time spent is greater than 50% in coordination of care (as documented) at patient's floor/unit and/or counseling patient:
[2023-01-06 18:21] LABS: Blood Urea Nitrogen 62 mg/dL (6-20); Carbon Dioxide 34 mmol/L (22-30); Chloride 90 mmol/L (96-108); Glomerular Filtration Rate 14; Glucose 148 mg/dL (70-105)
[2023-01-06] MEDS ORDERED: POTASSIUM CHLORIDE 80 MEQ in DEXTROSE 5% IN WATER 500 ML IV ONE (18:38)
[2023-01-06] MEDS ORDERED: POTASSIUM CHLORIDE 20 MEQ/10 ML VIAL IV ONE ×2 (18:45)
[2023-01-06] MEDS: FAMOTIDINE 20 MG TABLET PO SCH (21:24)
[2023-01-07] MEDS: 0.9 % SODIUM CHLORIDE 10 ML SYRINGE IV SCH ×3 (05:21→20:21)
[2023-01-07 05:46] LABS: Basophils # (Auto) 0.03 K/mcL (0.00-0.30); Basophils % (Auto) 0.3 % (0.0-2.0); Eosinophils # (Auto) 0.01 K/mcL (0.00-0.70); Eosinophils % (Auto) 0.1 % (0.0-7.0); Hematocrit 28.5 % (40.1-51.0); Hemoglobin 8.9 g/dL (13.7-17.5); Lymphocytes # (Auto) 1.76 K/mcL (1.50-4.80); Lymphocytes % (Auto) 17.4 % (15.5-49.0); Mean Cell Volume 83.1 fL (80.0-100.0); Mean Corpuscular HGB Conc 31.2 g/dL (31.0-36.0); Mean Platelet Volume 10.6 fL (8.8-12.5); Monocytes # (Auto) 0.61 K/mcL (0.10-0.90); Neutrophils % (Auto) 75.7 % (38.0-78.0); Platelet Count 247 K/mcL (140-440); RBC 3.43 M/mcL (4.63-6.08); Red Cell Distribution Width 16.8 % (11.5-14.5); WBC 10.1 K/mcL (4.5-11.0)
[2023-01-07 06:29] LABS: ALT/SGPT 11 U/L (<40); AST/SGOT 18 U/L (<40); Albumin/Globulin Ratio 1.1 (1.0-2.3); Alkaline Phosphatase 125 U/L (39-117); Bilirubin,Total 0.2 mg/dL (0.1-1.0); Blood Urea Nitrogen 55 mg/dL (6-20); Calcium 8.6 mg/dL (8.6-10.4); Carbon Dioxide 30 mmol/L (22-30); Chloride 100 mmol/L (96-108); Globulin 2.7 gm/dL (2.2-3.7); Glomerular Filtration Rate 15; Glucose 110 mg/dL (70-105)
--- NOTE | 2023-01-07 06:48 | Nephrology Progress Note ---
SUBJECTIVE Subjective Patient information: Note initiated : 01/07/23 at 6:46 am Patient: Mauri Levine 37 y/o M admitted on 01/05/23 for High blood sugar. Chief Complaint: Nausea Pertinent ROS: Nausea improved mental status improved Weakness Mcknight catheter with clear urine Constitutional Vitals: Vital Signs Temp Pulse Resp BP Pulse Ox O2 Del Method O2 Flow Rate 99.4 F H 80 23 H 136/77 100 Nasal Cannula 1 01/07/23 06:01 01/07/23 06:01 01/07/23 06:01 01/07/23 06:01 01/07/23 06:01 01/07/23 06:01 01/07/23 06:01 Period Temp Pulse Resp BP Sys/Menard Pulse Ox O2 Del Method O2 Flow Rate Last 24 Hr 98.7 F-100.6 F 67-101 12-31 96-212/44-95 86-100 Nasal Cannula- Room Air 1-2 Intake and Output 01/06/23 01/07/23 01/07/23 19:59 03:59 11:59 Intake Total 3181 910 Output Total 1770 1175 750 Balance 1411 -265 -750 Weight 156 lb 12.8 oz 160 lb 8 oz Intake & Output: Intake & Output 01/06/23 01/07/23 01/07/23 19:59 03:59 11:59 Intake Total 3181 910 Output Total 1770 1175 750 Balance 1411 -265 -750 Weight 156 lb 12.8 oz 160 lb 8 oz Intake: IV 2211 570 Unasyn 1.5 gm In Sodium 50 50 Chloride 0.9% 50 ml @ 100 mls/ hr IV Q12H [facility] Rx#:[id number] Dextrose 5%-1/2Ns IV Solution 1 1590 ,000 ml @ 150 mls/hr IV .Q6H40M [facility] Rx#:[id number] HumuLIN R 50 UNIT In Sodium 51 Chloride 0.9% 99.5 ml @ 1 UNIT/ HR 2 mls/hr IV CONT [facility] Rx#: [id number] Potassium Chloride 40 Meq In 520 520 Dextrose 5% in Water 500 ml @ 130 mls/hr IV ONCE ONE Rx#: [id number] Oral 970 340 Output: Urine Catheter Amount 1770 1175 750 Other: Meal No breakfast due blood sugars/nausea/vomiting Percent of Meal Consumed 25% Urine Appearance Clear Clear Clear Uretheral (Mcknight) Clear Clear Urine Color Yellow Yellow Yellow Uretheral (Mcknight) Yellow Yellow Pale Pale Urine Odor Normal General appearance: cooperative and no acute distress Head Head exam: Present normal inspection Eye Eye exam: Present normal appearance ENT ENT exam: Present mucous membranes moist Respiratory Respiratory exam: Absent respiratory distress Cardiovascular Cardiovascular exam: Present normal rate and rhythm GI/Abdominal GI/Abdominal exam: Present soft; Absent tenderness Extremities Exam Extremities exam: Absent joint swelling or pedal edema Neurological Exam Neurological exam: Present alert and oriented X3 Psychiatric Psychiatric exam: Present normal affect and normal mood Skin Skin exam: Present warm; Absent rash A/P Assessment and plan (1) Acute worsening of stage 4 chronic kidney disease: Assessment and plan: Mauri Levine is a 37-year-old male with diabetes mellitus type 1, chronic kidney disease stage 4, hypertension brought to the [facility] ED with nausea, vomiting and his pump not working for 2 days. In ED, labs were significant for sodium 118, creatinine 6.0, potassium 4.3, CO2 19, glucose 1174. He was treated with IVF and IV insulin. Nephrology consultation requested for acute kidney injury. Acute kidney injury associated with DKA on chronic kidney disease stage 4 with initial metabolic acidosis and hyponatremia (pseudo), present on arrival, resolving. Chronic kidney disease stage 4, followed by Dr. Mills, last visit on 12/30/22. The patient had multiple admissions with a similar presentation. He did not require hemodialysis previously and recovered with IVF and DKA treatment. I informed his mother at the bedside in ED. Previous workup: Urine random total protein/creatinine on 12/30/22: 4,340 mg/g creatinine. Renal US on 08/16/21: Hyperechoic kidneys compatible medical renal disease. Prostate is normal size-volume 28 cc. Workup: CT Abdomen and Pelvis on 01/05/23: Anatomically normal kidneys. Chronic cholelithiasis. No acute abnormality. Urinalysis on 01/05/23: Yellow, hazy, pH 5.0, SG 1.018, protein 100, blood 0.03, leukocyte esterase negative. Progress: Serum creatinine changed from a peak of 6.3 on 01/05/23 to 4.6 on 01/07/23. Baseline serum creatinine: 3.1-4.7 (eGFR 15-17) in November 2022. Urine output: 5,155 ml reported in the past 24 hours. Metabolic alkalosis, resolved. Hyponatremia, resolved. Hypokalemia, resolved. Recommendations/Plan: Outpatient nephrology follow up with Dr. Mills on 02/28/23. Status: Acute Time Spent With Patient Time: Total time spent is greater than 50% in coordination of care (as documented) at patient's floor/unit and/or counseling patient:
[2023-01-07] MEDS: PANTOPRAZOLE 40 MG VIAL IV SCH ×2 (07:21→16:39)
[2023-01-07] MEDS: CARVEDILOL 6.25 MG TABLET PO SCH ×2 (07:22→16:39)
[2023-01-07] MEDS: ACETAMINOPHEN 325 MG TABLET PO PRN ×3 (08:37→20:55)
[2023-01-07] MEDS: DILTIAZEM 30 MG TABLET PO SCH (08:38)
[2023-01-07] MEDS: SUCRALFATE 1 GM TABLET PO SCH ×4 (08:38→20:20)
[2023-01-07] MEDS: amLODIPine 10 MG TABLET PO SCH (08:39)
[2023-01-07] MEDS: FLUoxetine HCL 20 MG CAPSULE PO SCH (08:39)
[2023-01-07] MEDS: AMPICILLIN SODIUM/SULBACTAM NA 1.5 GM in 0.9 % SODIUM CHLORIDE 50 ML IV SCH ×2 (08:41→20:29)
[2023-01-07] MEDS: 0.9 % SODIUM CHLORIDE 1,000 ML IV SCH (09:27)
[2023-01-07] MEDS: FAMOTIDINE 20 MG TABLET PO SCH (09:27)
[2023-01-07] MEDS: VANCOMYCIN 125 MG CAPSULE PO SCH ×3 (14:14→20:20)
[2023-01-07 16:51] LABS: Blood Urea Nitrogen 48 mg/dL (6-20); Carbon Dioxide 29 mmol/L (22-30); Chloride 99 mmol/L (96-108); Glomerular Filtration Rate 19; Glucose 93 mg/dL (70-105)
[2023-01-08] MEDS: 0.9 % SODIUM CHLORIDE 1,000 ML IV SCH (00:38)
[2023-01-08] MEDS: LABETALOL 5 MG/ML ML IV PRN (03:38)
[2023-01-08] MEDS: 0.9 % SODIUM CHLORIDE 10 ML SYRINGE IV SCH (04:27)
[2023-01-08 06:42] LABS: Basophils # (Auto) 0.03 K/mcL (0.00-0.30); Basophils % (Auto) 0.4 % (0.0-2.0); Eosinophils # (Auto) 0.06 K/mcL (0.00-0.70); Eosinophils % (Auto) 0.8 % (0.0-7.0); Hematocrit 26.6 % (40.1-51.0); Hemoglobin 8.3 g/dL (13.7-17.5); Lymphocytes # (Auto) 1.62 K/mcL (1.50-4.80); Lymphocytes % (Auto) 21.1 % (15.5-49.0); Mean Cell Volume 83.1 fL (80.0-100.0); Mean Corpuscular HGB Conc 31.2 g/dL (31.0-36.0); Mean Platelet Volume 10.5 fL (8.8-12.5); Monocytes # (Auto) 0.67 K/mcL (0.10-0.90); Monocytes % (Auto) 8.7 % (1.0-12.0); Neutrophils % (Auto) 68.5 % (38.0-78.0); Platelet Count 205 K/mcL (140-440); Red Cell Distribution Width 16.6 % (11.5-14.5); WBC 7.7 K/mcL (4.5-11.0)
[2023-01-08 07:41] LABS: ALT/SGPT 16 U/L (<40); AST/SGOT 21 U/L (<40); Albumin/Globulin Ratio 1.1 (1.0-2.3); Alkaline Phosphatase 124 U/L (39-117); Bilirubin,Total 0.2 mg/dL (0.1-1.0); Blood Urea Nitrogen 46 mg/dL (6-20); Calcium 8.6 mg/dL (8.6-10.4); Carbon Dioxide 25 mmol/L (22-30); Chloride 103 mmol/L (96-108); Globulin 2.7 gm/dL (2.2-3.7); Glomerular Filtration Rate 19; Glucose 91 mg/dL (70-105)
[2023-01-08] MEDS: CARVEDILOL 6.25 MG TABLET PO SCH (07:42)
[2023-01-08] MEDS: SUCRALFATE 1 GM TABLET PO SCH (07:43)
[2023-01-08] MEDS: PANTOPRAZOLE 40 MG VIAL IV SCH (07:43)
[2023-01-08] MEDS: ACETAMINOPHEN 325 MG TABLET PO PRN (07:48)
--- NOTE | 2023-01-08 07:52 | Discharge Summary ---
Discharge Provider Provider IMPORTANT FOLLOW-UP INFORMATION FOR PCP: Patient information: Note initiated : 01/08/23 at 7:47 am Service Date, if different from initiated Date: [] Patient: Mauri Levine 37 y/o M admitted on 01/05/23. Chief Complaint: [] Date of admission: 01/05/23 12:48 Discharge date: 01/08/23 Primary care physician: Flo Peña MD Consults: 01/05/23 Consult to Physician [CONS] Stat Comment: Consulting Provider: Sven Cho Reason For Exam: Physician to Consult COURSE Hospital Course Hospital course: Mr. Levine is a 37 year old male with poorly controlled diabetes mellitus 1 on insulin pump, diabetic gastroparesis, noncompliance with treatment, frequent admissions for DKA, CKD stage IV, hypertension, IV drug abuse, polysubstance abuse including meth and fentanyl per patient, marijuana abuse and possible cyclic vomiting presented with persistent nausea, vomiting and generalized weakness. Patient has multiple hospitalizations for DKA and always have same issue of insulin pump malfunction, dehydration, nausea and vomiting. This time patient reports that his pump stopped working for 2 days, he has been trying to give himself insulin but has been unable to keep up with continuous glucose monitoring which has been reading it high. Patient reports some hematemesis in the setting of persistent vomiting. He denies any history of cirrhosis. He reports that whenever he has bouts of vomiting he does have mild hematemesis. He reports no fever, no chills, no dysuria, no shortness of breath, no chest pain. On presentation patient vitals were stable. Blood glucose 1174. Beta- hydroxybutyrate 15. WBC 12.8, hemoglobin 9.4. VBG with pH of 734, HCO3 24. Chemistries showed sodium 118, potassium 4.3, anion gap 39, CO2 19, chloride les s than 60. BUN 98, creatinine 6.0 looks like his baseline is about 3-4., phosphorus 12, magnesium 4.2. Patient lab work is concerning for hyperosmolar hyperglycemic state. He does have an anion gap but no acidosis this is likely in the setting of vomiting induced anion gap alkalosis. Patient will be started on insulin drip, IV fluids and will be admitted to ICU with nephrology consult. 01/06. Mental status improving, some nausea no vomiting, no diarrhea overnight. low-grade fever and leukocytosis worsening. Blood glucose improved to 163. Patient on IV insulin drip, his mother will be bringing his insulin pump. Serum creatinine peaked to 6.3 and down to 5.5 in past 24 hours. Baseline serum creatinine 3.1-4.7 in November 2022 patient had good urine output of 2.5 L in past 24 hours. Metabolic alkalosis improving. Hyponatremia resolved. He has hypokalemia which is being replaced. PCR positive for toxigenic C. difficile, GDH positive. Will obtain chest x-ray 01/07. Back to baseline mental status, smiling appropriately appears perky. Chest x-ray with mild diffuse infiltrate in left lung. Overnight low-grade temp Tmax 99.6. Leukocytosis resolved 10.1 today. Minimal nausea, no vomiting, no diarrhea. Requesting to advance diet. Patient on home insulin pump dose and blood glucose stable 110-140s.. Hyponatremia has resolved. Potassium now within normal range. Mcknight and plan to DC Mcknight. 01/08. Patient is nearly back to his baseline, he has a good appetite and keeping food and liquids down and feels he could discharge home today. His insulin pump is functioning well. Morning labs are stable. Plan is to discharge home today. He will complete 2 more days of Augmentin for possible pneumonia and overlap with oral vancomycin given history of C. difficile colitis. Follow- up with primary care provider. Physical exam Head: Atraumatic, normal inspection. Eyes: normal appearance, no scleral icterus. Neck: full ROM Respiratory: no respiratory distress. Cardiovascular: normal rate and rhythm, S1, S2, Deaccessed port in right upper chest. GI/Abdominal: soft, nontender, no guarding. Insulin pump with line inserted in subcutaneous tissue in right lower abdomen. Extremities: full range of motion, nontender. Neurological: CN II-XII intact, intact motor, intact sensation. Psychiatric: normal mood. Skin: warm, normal color Discharge diagnosis: Intractable nausea and vomiting Secondary discharge diagnosis: Diabetic gastroparesis Hyperglycemia Type 1 diabetes mellitus Time Spent with Patient Time attestation: Total time spent providing and/or coordinating discharge services: Time spent: Less than 30 minutes EXAM Constitutional Vitals: Temp Pulse Resp BP Pulse Ox O2 Del Method O2 Flow Rate 98.8 F 72 16 158/85 100 Room Air 1 01/08/23 07:35 01/08/23 07:35 01/08/23 07:35 01/08/23 07:35 01/08/23 07:35 01/08/23 07:35 01/07/23 10:01 Discharge Data Data Completed and Pending Labs on day of discharge: Labs from last 24 hours 01/08/23 01/08/23 01/07/23 05:41 05:41 15:58 WBC 7.7 RBC 3.20 L Hgb 8.3 L Hct 26.6 L MCV 83.1 MCH 25.9 L MCHC 31.2 RDW 16.6 H Plt Count 205 MPV 10.5 Immature Gran % (Auto) 0.5 Neut % (Auto) 68.5 Lymph % (Auto) 21.1 [place] % (Auto) 8.7 Eos % (Auto) 0.8 Baso % (Auto) 0.4 Lymph # (Auto) 1.62 [place] # (Auto) 0.67 Eos # (Auto) 0.06 Baso # (Auto) 0.03 Immature Gran # 0.04 Absolute Neutrophils 5.26 Sodium 139 135 Potassium 4.9 3.9 Chloride 103 99 Carbon Dioxide 25 29 Anion Gap 11.0 7.0 L BUN 46 H 48 H Creatinine 3.9 H 3.9 H GFR Calculation 19 19 Glucose 91 93 Calcium 8.6 9.0 Total Bilirubin 0.2 AST 21 ALT 16 Alkaline Phosphatase 124 H Total Protein 5.7 L Albumin 3.0 L Globulin 2.7 Albumin/Globulin Ratio 1.1 Preliminary micro results at discharge 01/06/23 16:57 Blood Culture - Preliminary Blood 01/06/23 16:47 Blood Culture - Preliminary Blood Discharge Plan Patient/Caregiver Discharge Instructions Activity: increase activity as tolerated Diet: Consistent Carbohydrate Prescriptions: New amoxicillin-pot clavulanate 875-125 mg tablet 1 tab PO BID 2 Days Qty: 4 0RF vancomycin 125 mg capsule 125 mg PO QID 7 Days Qty: 28 0RF Continued (DME) insulin syringes (disposable) 1 mL syringe See Rx Instructions .Route Qty: 500 0RF Rx Instructions: use for insulin three times daily fluoxetine 20 mg capsule 20 mg PO QDAY Qty: 90 1RF famotidine 20 mg tablet 20 mg PO BID Qty: 90 1RF venlafaxine 75 mg capsule,extended release 24hr 225 mg PO QAM Qty: 90 5RF carvedilol 6.25 mg tablet 6.25 mg PO BID Qty: 60 5RF Baqsimi 3 mg/actuation spray,non-aerosol 3 mg intranasal ONCE PRN (Reason: hypoglycemia) Qty: 1 3RF Rx Instructions: 1 spray intranasal as needed Gvoke HypoPen 1-Pack 1 mg/0.2 mL auto-injector 1 mg subcut ONCE Qty: 0.2 0RF Rx Instructions: as a single dose; may repeat once after 15 minutes if no response diltiazem HCl 60 mg tablet 60 mg PO QDAY ondansetron 4 mg tablet,disintegrating 4 mg PO Q8H PRN (Reason: cyclic vomiting) hydrocortisone [Anusol-HC] 2.5 % cream with perineal applicator 1 applic IL TID PRN (Reason: hemorrhoids) Qty: 30 0RF Rx Instructions: Use for no longer than 2 weeks. (DME) blood-glucose meter Misc See Rx Instructions .Route Qty: 1 3RF Rx Instructions: use to test blood sugar 5 times daily (DME) Blood Glucose Test Strip See Rx Instructions .ROUTE .MEDSUPPLY Qty: 500 3RF Rx Instructions: use to test blood sugar 5 times daily (DME) lancets Misc See Rx Instructions .Route Qty: 500 3RF Rx Instructions: use to test blood sugar 5 times daily diphenhydramine HCl [EZ Nite Sleep] 25 mg capsule 25 mg PO QHS PRN (Reason: insomnia) Qty: 30 1RF insulin aspart U-100 [Novolog U-100 Insulin aspart] 100 unit/mL solution See Rx Instructions subcut TID Qty: 60 1RF Rx Instructions: subcut three times daily with meals; Moderate Dose Scale Blood Sugar (mg/dL), Units Insulin 70-130, 0 units 131-180, 4 units 181-240, 8 units 241-300, 10 units 301-350, 12 units 351-400, 16 units >400, 20 units and call amlodipine 10 mg tablet 10 mg PO QDAY clonidine 0.1 mg/24 hr patch weekly 1 patch transdermal WEEKLY promethazine [Promethegan] 25 mg Suppository 25 mg IL Q6HP PRN (Reason: Nausea And Vomiting) Qty: 12 0RF mirtazapine 15 mg Tablet 15 mg PO HS Qty: 30 0RF lorazepam 1 mg Tablet 1 - 2 mg PO QDAY Qty: 20 0RF sucralfate 1 gram Tablet 1 gm PO BID Qty: 30 0RF ropinirole 0.25 mg Tablet 0.5 mg PO HSP PRN (Reason: restless leg) Qty: 30 0RF insulin glargine [Lantus U-100 Insulin] 100 unit/mL solution 10 unit subcut HS PRN (Reason: if insulin pump fail) Rx Instructions: if insulin pump fails Follow Up Plan Follow up with: Flo Peña MD [Primary Care Provider] - Patient Disposition: Home, Self-Care Prognosis: Fair Overall status at discharge: patient is back to baseline Discharge Orders: Discharge Order (Routine); Ordered 01/08/23 Ordered By: Anoop Nash
--- NOTE | 2023-01-08 08:49 | Nephrology Progress Note ---
SUBJECTIVE Subjective Patient information: Note initiated : 01/08/23 at 8:46 am Patient: Mauri Levine 37 y/o M admitted on 01/05/23. Chief Complaint: Weakness Pertinent ROS: Weakness No nausea Constitutional Vitals: Vital Signs Temp Pulse Resp BP Pulse Ox O2 Del Method O2 Flow Rate 98.8 F 72 16 158/85 100 Room Air 1 01/08/23 07:35 01/08/23 07:35 01/08/23 07:35 01/08/23 07:35 01/08/23 07:35 01/08/23 07:35 01/07/23 10:01 Period Temp Pulse Resp BP Sys/Menard Pulse Ox O2 Del Method O2 Flow Rate Last 24 Hr 97.8 F-99.6 F 71-83 12-26 108-173/66-93 98-100 Nasal Cannula- Room Air 1-1 Intake and Output 01/07/23 01/08/23 01/08/23 19:59 03:59 11:59 Intake Total 400 1050 Balance 400 1050 Weight 160 lb 9 oz Intake & Output: Intake & Output 01/07/23 01/08/23 01/08/23 19:59 03:59 11:59 Intake Total 400 1050 Balance 400 1050 Weight 160 lb 9 oz Intake: IV 0 1050 Sodium Chloride 0.9% 1,000 ml @ 1000 70 mls/hr IV .[id number] [facility] Rx#: [id number] Unasyn 1.5 gm In Sodium 50 Chloride 0.9% 50 ml @ 100 mls/ hr IV Q12H [facility] Rx#:[id number] Dextrose 5%-1/2Ns IV Solution 1 0 ,000 ml @ 150 mls/hr IV .[id number] [facility] Rx#:[id number] HumuLIN R 50 UNIT In Sodium 0 Chloride 0.9% 99.5 ml @ 1 UNIT/ HR 2 mls/hr IV CONT [facility] Rx#: [id number] Oral 400 Other: # Voids 1 General appearance: cooperative and no acute distress Head Head exam: Present normal inspection Eye Eye exam: Present normal appearance ENT ENT exam: Present mucous membranes moist Respiratory Respiratory exam: Absent respiratory distress Cardiovascular Cardiovascular exam: Present normal rate and rhythm GI/Abdominal GI/Abdominal exam: Present soft; Absent tenderness Extremities Exam Extremities exam: Absent joint swelling or pedal edema Neurological Exam Neurological exam: Present alert and oriented X3 Psychiatric Psychiatric exam: Present normal affect and normal mood Skin Skin exam: Present warm; Absent rash A/P Assessment and plan (1) Acute worsening of stage 4 chronic kidney disease: Assessment and plan: Mauri Levine is a 37-year-old male with diabetes mellitus type 1, chronic kidney disease stage 4, hypertension brought to the [facility] ED with nausea, vomiting and his pump not working for 2 days. In ED, labs were significant for sodium 118, creatinine 6.0, potassium 4.3, CO2 19, glucose 1174. He was treated with IVF and IV insulin. Nephrology consultation requested for acute kidney injury. Acute kidney injury associated with DKA on chronic kidney disease stage 4 with initial metabolic acidosis and hyponatremia (pseudo), present on arrival, resolved to baseline. Chronic kidney disease stage 4, followed by Dr. Mills, last visit on 12/30/22. The patient had multiple admissions with a similar presentation. He did not require hemodialysis previously and recovered with IVF and DKA treatment. Previous workup: Urine random total protein/creatinine on 12/30/22: 4,340 mg/g creatinine. Renal US on 08/16/21: Hyperechoic kidneys compatible medical renal disease. Prostate is normal size-volume 28 cc. Workup: CT Abdomen and Pelvis on 01/05/23: Anatomically normal kidneys. Chronic cholelithiasis. No acute abnormality. Urinalysis on 01/05/23: Yellow, hazy, pH 5.0, SG 1.018, protein 100, blood 0.03, leukocyte esterase negative. Progress: Serum creatinine changed from a peak of 6.3 on 01/05/23 to 4.6 on 01/07/23, 3.9 on 01/08/23; eGFR ~19. Baseline serum creatinine: 3.1-4.7 (eGFR 15-25) in November 2022. Urine output: 1,935 ml reported in the past 24 hours. Metabolic alkalosis, resolved. Hyponatremia, resolved. Hypokalemia, resolved. Recommendations/Plan: Nephrology will sign off. Outpatient nephrology follow up with Dr. Mills on 02/28/23. Status: Acute Time Spent With Patient Time: Total time spent is greater than 50% in coordination of care (as documented) at patient's floor/unit and/or counseling patient:
[2023-01-08] MEDS: amLODIPine 10 MG TABLET PO SCH (08:52)
[2023-01-08] MEDS: FLUoxetine HCL 20 MG CAPSULE PO SCH (08:52)
[2023-01-08] MEDS: DILTIAZEM 30 MG TABLET PO SCH (08:52)
[2023-01-08] MEDS: VANCOMYCIN 125 MG CAPSULE PO SCH (08:52)
--- NOTE | 2023-01-08 11:17 | Ultrasound Report ---
INDICATION: AVF planning COMPARISON: FINDINGS: Right: All venous and arterial structures are intact. Diameters of the cephalic and basilic veins are 1.2 and 2.4 mm, respectively. Arterial waveforms are triphasic. The palmar arch is patent. Left: All venous and arterial structures are intact. Arterial waveforms are triphasic. The palmar arch is patent. The diameters of the cephalic and basilic veins are 1.5 and 2.5 mm, respectively Bilateral cephalic and basilic veins are difficult to identify due to small size IMPRESSION: Patent right and left upper extremity arteries and veins Interpreted and Authenticated by: Nithin Ballesteros M.D. 01/08/23
== END 2023-01-08 09:30 | disposition home or self-care (01) | DRG 378 ==
LOC: ED 06:35 → ICU 12:48 → MEDSUR 01-07 17:37
PROVIDERS: ADMIT Internal Medicine; ATTEND Internal Medicine